=== PATIENT | male | born 1940 | race Caucasian/White ===

== ENCOUNTER 2017-11-23 13:30 | Outpatient (RCR) | payer MEDICARE, OTHER, SELFPAY ==
--- NOTE | 2017-11-07 17:40 | HP.PTEVAL_ITS ---
Patient's Visit Information JODIE SILVERIO is a 77 year old M referred to Physical Therapy by Chel Kaur DPM with a diagnosis of Plantar Fascitis. Date of Evaluation: 11/07/17 Physical Therapist: Veronica Bennett - Visit Plan Frequency: 2x /Week Duration: 3 Weeks Plan: Focus on ROM and flexibility of the LE - Subjective Subjective: Patient reports that his left heel has bothering him for a couple of weeks. Has seen Dr. Kaur- gave him exercises and then she sent him to therapy. Was walking on the TM for 15 minutes and about a week later the heel started bothering him. He changed shoes and was told to use the bike. But the pain never went away. No x-rays or MRI on the foot. Was walking in diabetic shoes- does not have orthotics. Feels that its not getting better. Is wearing a night splint for a few nights but doesn't get much rest so he isn't wearing it very often. Pain is located in the heel but does not radiate. Has neuropathy in both feet. Worst: 7/10 Agg: walking Eases: sleeping, sitting. Best: 0/10. Feels burning with sharp pains that don't last long. Pretty sedentary-likes to watch TV. Is not working out at the gym anymore. Sleep: not disturbed. PMHx: DM, open heart surgery x2 (quad, aorta), art valve, 3 bipasses, no orthopaedic. Meds: see list - Objective Posture: FH, RS, Increased kyphosis. Gait: mild deviation- wide DILLON- decreased heel/toe pattern bilaterally. SLS: unable but will weight shift- painful with shift but doesn't have a lot of feeling in his feet so he isn't sure how much it hurts. HR/TR: able with UE support. ROM: DF: neutral, PF: 40 degrees, Inv: 30 degrees, Ever: 10 degrees. Strength: 5/5 throughout. Special Test: windlass mechanism- negative. Palpation: tender along distal heel on medial border of the plantar fascia. Flex: Gastroc: severe, Solues: severe - Goals Goal 1:: Patient will be I with HEP and progression Goal Time Frame: 4-6 Weeks Goal 2:: Patient will demo 10 degrees of DF Goal Time Frame: 4-6 Weeks Goal 3:: Patient will report 0/10 pain for 1 week Goal Time Frame: 4-6 Weeks Goal Time Frame: 4-6 Weeks - Rehabilitation Potential Physical Therapy Diagnosis: Patient presents with hypomobility- he has decreased ROM, strength and flexibility leading to plantar fascitits Rehabilitation Potential: Fair - Anticipated Interventions Patient/Client Instruction: Educate patient on: Benefits of Fitness Program For the Purpose of:: To improve performance and independence with ADL's Therapeutic Exercise to Include: Strength training, Endurance training, Balance training, Agility training, Body mechanics, Postural training, Flexibilty training, Gait and locomotor training, Passive ROM, Active ROM For the Purpose of:: To improve muscle performance and motor function TENS: Yes Cryotherapy (ice pack, ice massage): Yes Thermo therapy (hot pack): Yes Ultrasound (thermal/non thermal): Yes For the Purpose of:: To decrease swelling/inflammation Thank you for the opportunity to evaluate your patient. For Medicare and Medicare HMO plans, please review the plan of care and approve it. It will need to be FAXED BACK to us at [phone] for Medicare purposes. Please let me know if there are questions or concerns regarding this plan of care. Physician Signature: Date:
--- NOTE | 2018-01-04 14:27 | HP.PT.NRP ---
HP - Discharge Summary (1) - Patient Information JODIE SILVERIO was seen in my office for initial evaluation on 11/07/17. The following Plan of Care was established for this patient: Initial Frequency: 2x /Week Initial Duration: 3 Weeks - Anticipated Interventions Patient/Client Instruction: Educate patient on: Benefits of Fitness Program For the Purpose of:: To improve performance and independence with ADL's Therapeutic Exercise to Include: Strength training, Endurance training, Balance training, Agility training, Body mechanics, Postural training, Flexibilty training, Gait and locomotor training, Passive ROM, Active ROM For the Purpose of:: To improve muscle performance and motor function TENS: Yes Cryotherapy (ice pack, ice massage): Yes Thermo therapy (hot pack): Yes Ultrasound (thermal/non thermal): Yes For the Purpose of:: To decrease swelling/inflammation This patient was last seen in our office . Pertinent comments regarding their Physical therapy will appear below: Patient has not attended PT in over 30 days and is appropriate to be d/c at this time and return to MD for further evaluation. At this point I will be discontinuing this patient from physical therapy. I would be happy to see this patient again in the future if found appropriate by the physician. Thank you! Veronica Bennett
== END 2017-11-23 19:00 | disposition home or self-care (01) ==
LOC: PT 13:30
PROVIDERS: Family Provider Family Medicine; PCP Family Medicine; Visit Provider Podiatrist
DX: M72.2 Plantar fascial fibromatosis (principal)
CPT/HCPCS: 97110; 97161; G8978; G8979

== ENCOUNTER 2018-01-10 15:26 | Emergency (ER) | payer MEDICARE, OTHER, SELFPAY ==
[2018-01-10 15:27] VITALS: BP 144/97; PULSE 82; RESP 16; TEMP 36.5; O2SAT 97; BMI 45.6
--- NOTE | 2018-01-10 15:46 | CT_ITS ---
STUDY: CT BRAIN WITHOUT CONTRAST REASON FOR EXAM: Male, 77 years old. 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 COMPARISON: 11.18.17. FINDINGS: Soft tissue swelling of the posterior midline scalp. There is no underlying fracture. Normal calvarium. There are calcifications around the carotid artery. These are noted in the cavernous carotid arteries. There is mild cerebral atrophy with widening of the extra-axial spaces and ventricular dilatation. There are areas of decreased attenuation within the white matter tracts of the supratentorial brain, consistent with microvascular disease changes. Normal thalami. Normal brainstem. There is mild cerebellar atrophy. Physiologic calcifications of the basal ganglia. There is no intracranial hemorrhage. There are no findings of an acute ischemic infarction. Normal visualized paranasal sinuses. CT/Brain/Head without Contrast IMPRESSION: Chronic involutional changes of the brain. Soft tissue swelling of the posterior midline scalp. There is no underlying fracture. Electronically Signed: Juan Marlow MD at 16:39 EST , Service support ,
--- NOTE | 2018-01-10 15:49 | ED.DCSUM_ITS ---
- ER Visit Summary Date of Service: 01/10/18 Chief Complaint: Fall with head injury History of Present Illness: The patient is a 77 M currently on Coumadin secondary to a prior aortic valve replacement. Patient fell on the ice today hitting the back of his head. He did not lose consciousness. He is a very mild headache. He denies vision changes, nausea, or vomiting. INR was last checked a week ago at [facility]. Physical Examination: Vital signs are unremarkable. Head neck examination with a small hematoma to the right posterior parietal scalp. No lacerations are noted. These are clear bilaterally. He has no C- spine tenderness on exam. Heart is regular rate and rhythm. Lung sounds are clear. Abdomen is soft nontender. Extremity examination reveals an abrasion to the extensor surface of the right elbow. There is no tenderness to palpation and he has full range of motion without difficulty. There is no tenderness noted to the lower extremities. Neuro exam is unremarkable. Test Results: INR is 2.9. CT scan of the head shows chronic involutional changes. There is soft tissue swelling of the posterior midline scalp. No fracture is noted. Emergency Department Course and Treatment: She declined pain medication while here. Test results were discussed with him and family at bedside. He will be discharged home at this time. Treatment Plan: [] Disposition: Discharge Impression: 1. Mechanical fall 2. Scalp hematoma 3. Coumadin coagulopathy This note was generated with [employer] dictation software. It may contain incorrect words, spelling, and punctuation that were not noted in review of the chart prior to signing ED Disposition - Plan for ED Patient: Disposition: Home or Assisted Living Chief Complaint: Fall Instructions: ED Mechanical Fall, ED Head Injury Closed Referrals: Romaine Velazquez MD [Primary Care Provider] - As Needed
[2018-01-10 16:37] LABS: International Normalized Ratio 2.9; Prothrombin Time (Protime)PT. 29.4 SECONDS (11.7-14.9)
--- NOTE | 2018-01-10 17:14 | ED.DEP ---
ED Disposition - Plan for ED Patient: Disposition: Home or Assisted Living Chief Complaint: Fall Instructions: ED Mechanical Fall, ED Head Injury Closed Referrals: Romaine Velazquez MD [Primary Care Provider] - As Needed
[2018-01-10 17:32] VITALS: BP 132/74; PULSE 67; RESP 18; O2SAT 93
== END 2018-01-10 17:33 | disposition home or self-care (01) ==
PROVIDERS: Emergency Provider Emergency Medicine; Family Provider Family Medicine; PCP Family Medicine
DX: S00.03XA Contusion of scalp, initial encounter (principal); W00.9XXA Unspecified fall due to ice and snow, initial encounter; Y93.9 Activity, unspecified; Y92.9 Unspecified place or not applicable; Z95.2 Presence of prosthetic heart valve; Z79.01 Long term (current) use of anticoagulants; E66.9 Obesity, unspecified; Z68.42 Body mass index [BMI] 45.0-49.9, adult; G40.909 Epilepsy, unspecified, not intractable, without status epilepticus; M10.9 Gout, unspecified; Z95.1 Presence of aortocoronary bypass graft; I25.10 Atherosclerotic heart disease of native coronary artery without angina pectoris; I13.0 Hypertensive heart and chronic kidney disease with heart failure and stage 1 through stage 4 chronic kidney disease, or unspecified chronic kidney disease; I50.9 Heart failure, unspecified; E11.22 Type 2 diabetes mellitus with diabetic chronic kidney disease; N18.9 Chronic kidney disease, unspecified; Z79.4 Long term (current) use of insulin; Z79.82 Long term (current) use of aspirin; Z79.899 Other long term (current) drug therapy
CPT/HCPCS: 70450; 85610; 99282

== ENCOUNTER → 2018-01-19 14:08 | Outpatient (CLI) | payer MEDICARE, OTHER, SELFPAY ==
[2018-01-19 15:56] LABS: Hemoglobin A1c 6.6 % (4.2-6.3)
[2018-01-19 16:01] LABS: ALB/GLOB Ratio 0.7 RATIO (0.9-2.4); AST(SGOT) 19 U/L (15-37); Alanine Aminotransfer ALT/SGPT 24 U/L (16-61); Albumin, Serum 3.1 g/dL (3.2-5.0); Alkaline Phosphatase 142 U/L (45-117); Anion Gap 8 (5-15); BUN 37 mg/dL (7-18); BUN/Creat Ratio 19.9 RATIO (10-20); Calcium,Total 8.3 mg/dL (8.5-10.1); Chloride 105 mmol/L (98-107); Cholesterol 116 mg/dL (200); Creatinine, Serum 1.86 mg/dL (0.70-1.30); EST Glomerular Filtration Rate 38 mL/min (>60); Est Glom Filt Rate - Afr Amer 46 mL/min (>60); Globulin 4.3 g/dL (2.2-4.2); Glucose 162 mg/dL (74-106); High Density Lipoprotein 30 mg/dL; Potassium 4.6 mmol/L (3.5-5.1); Protein, Total 7.4 g/dL (6.4-8.2); Sodium Level 138 mmol/L (136-145); Thyroid Stim Hormone (TSH) 3.33 uIU/mL (0.358-3.74); Triglycerides 221 mg/dL; Very Low Density Lipoprotein 44 mg/dL (5-40)
[2018-01-19 16:09] LABS: Hematocrit 33.5 % (40-54); Hemoglobin 10.7 g/dl (13.0-16.5); Mean Corp Hgb Conc 31.9 g/gl (32-36); Mean Corpuscular Hgb 30.4 pg (27.0-32.0); Mean Corpuscular Volume 95.2 fL (80-94); Mean Platelet Vol. 10.2 fl (6.2-12.0); Platelet Count 178 K/mm3 (150-450); RBC Distribution Width CV 14.4 % (11.6-14.6); RBC Distribution Width SD 49.4 fl (35.1-43.9); Red Blood Count 3.52 M/mm3 (4.6-6.2); White Blood Count 9.2 K/mm3 (4.4-11.0)
[2018-01-19 16:10] LABS: Scan Indicated on CBC? Y/N NO
[2018-01-19 16:20] LABS: Microalbumin:Creatinine Ratio 265.8 mg/g CRE (<30 mg/g CRE)
== END ==
PROVIDERS: Family Provider Family Medicine; PCP Family Medicine; Visit Provider Internal Medicine
DX: I25.10 Atherosclerotic heart disease of native coronary artery without angina pectoris (principal); I11.0 Hypertensive heart disease with heart failure; I50.9 Heart failure, unspecified; E11.65 Type 2 diabetes mellitus with hyperglycemia; E66.01 Morbid (severe) obesity due to excess calories; E78.2 Mixed hyperlipidemia
CPT/HCPCS: 36415; 80053; 80061; 82043; 82570; 83036; 84443; 85027

== ENCOUNTER 2018-02-04 04:17 | Inpatient (IN) | payer MEDICARE, OTHER, SELFPAY ==
[2018-02-04] VITALS (21 sets, daily range): BP systolic 132–152; BP diastolic 57–75; PULSE 62–106; RESP 16–36; TEMP 36.8–37.9; O2SAT 87–98; BMI 46.9; BMI 45.9; BMI 46.0
--- NOTE | 2018-02-04 04:29 | RAD_ITS ---
STUDY: X-RAY CHEST REASON FOR EXAM: Male, 77 years old. cough, SOB TECHNIQUE: Single AP portable view of the chest. COMPARISON: None. FINDINGS: The lungs are clear and expanded. There is no demonstrated pleural abnormality. Sternal cerclage wires and vascular clips are present from a prior sternotomy and coronary artery bypass graft procedure (CABG). Normal mediastinum and baudilio. Normal visualized pulmonary arteries. Normal visualized aortic arch and descending thoracic aorta. Normal visualized thoracic spine. There is degenerative osteoarthritis of the bilateral shoulders. There is no demonstrated abnormality of the visualized soft tissue structures of the upper abdomen. RAD/Chest 1 View (Portable) IMPRESSION: Degenerative changes, as described above. No demonstrated acute cardiopulmonary process. Electronically Signed: Bela Garcia MD at 5:48 EST Tel , Service support ,
--- NOTE | 2018-02-04 04:29 | EKG12_ITS ---
Test Reason : SOB Blood Pressure : / mmHG Vent. Rate : 100 BPM Atrial Rate : 079 BPM P-R Int : 000 ms QRS Dur : 136 ms QT Int : 392 ms P-R-T Axes : 000 -17 139 degrees QTc Int : 505 ms Sinus tachycardia with occasional Premature ventricular complexes Left bundle branch block Abnormal ECG Confirmed by DON BAIG, JEAN CLAUDE ([id number]), department editor LEX CARUSO ([id number] on 02/06/2018 3:00:08 PM Referred By: SHANNAN Confirmed By:JEAN CLAUDE OCHOA MD
--- NOTE | 2018-02-04 04:33 | ED.DCSUM_ITS ---
- ER Visit Summary Date of Service: 02/04/18 Chief Complaint: Dyspnea, cough History of Present Illness: The patient is a 77 M 1 week history of cough with sputum production. This evening worsening shortness of breath. No chest pains. Complains of chills. No fevers. No urinary symptoms. No nausea or vomiting. History of sleep apnea with CPAP at night. Denies history of COPD or asthma. Remote tobacco history. CHF history with no increased swelling. Previously on home oxygen due to CHF history. No further complaints. Physical Examination: General: Alert and oriented ?3, short sentences. HEENT: Normocephalic, atraumatic. Moist mucosa membranes Neck: supple, nontender. Cardiovascular: Regular tachycardic rate and rhythm, no murmurs Respiratory: Wheezing noted lower lobes with diminished sounds. Abdomen: Soft, nontender, nondistended Extremities: Nontender, mild lower extremity edema, pulses intact ?4 Neuro: no focal neurological deficits. Test Results:EKG: Sinus, left bundle branch block, Rate of 100. No ST or T- wave changes. CBC white count 7.9. Hemoglobin 0.6. Creatinine 1.84. INR 2.5. Sputum Gram stain and culture sent and pending. Blood culture ?2 pending. Lactic acid 1.4. Troponin pending. Chest x-ray: Concerns for left hilar infiltrate. Emergency Department Course and Treatment: Patient hypoxic on arrival, no home oxygen. Placed on oxygen with aerosol treatments. Pulse ox improved. Wheezing on examination. EKG notes a new left bundle branch block. He has no chest pain. Troponin is pending. Sepsis protocol due to tachycardia and tachypnea. X-ray reviewed by myself concerns for left hilar infiltrate compared to previous x-rays. Lactic acid 1.4. Currently on reevaluation some wheezing was improved. Creatinine lower than recent baseline. Currently hospitalist on page for discussion for admission for community acquired pneumonia, hypoxemia, new left bundle branch block. Discussed with Dr. De Leon, will place on Levaquin IV. Treatment Plan: [] Disposition: Admission Impression: 1. Community acquired pneumonia 2. New left bundle branch block 3. Hypoxemia 4. Chronic kidney disease This note was generated with [employer] software. It may contain incorrect words, spelling, and punctuation that were not noted in review of the chart prior to signing ED Disposition - Plan for ED Patient: Disposition: Acute Care Hospital [facility] Chief Complaint: Shortness of Breath Diagnosis: Community acquired pneumonia, Left bundle branch block, Hypoxemia, Chronic kidney disease Referrals: Romaine Velazquez MD [Primary Care Provider] -
[2018-02-04] MEDS: Ipratropium/Albuterol Sulfate 3 ML AMPUL.NEB INHALATION ×7 (04:43→22:29)
[2018-02-04 04:48] LABS: Absolute Neutrophil Count 5.7 X10^3/uL (2.0-7.7); Basophil# 0.04 X10^3/uL; Basophil% 0.5 % (0-1); Eosinophil# 0.26 X10^3/uL; Eosinophils% 3.3 % (0-5); Hematocrit 35.2 % (40-54); Hemoglobin 11.6 g/dl (13.0-16.5); Lymphocyte % 15.1 % (19-41); Mean Corpuscular Hgb 31.4 pg (27.0-32.0); Mean Corpuscular Volume 95.1 fL (80-94); Mean Platelet Vol. 9.9 fl (6.2-12.0); Monocyte% 8.8 % (0-10); Neutrophil # 5.72 X10^3/uL (2.7-7.7); Neutrophil % 72.2 % (47-70); Platelet Count 148 K/mm3 (150-450); RBC Distribution Width CV 14.4 % (11.6-14.6); RBC Distribution Width SD 47.3 fl (35.1-43.9); White Blood Count 7.9 K/mm3 (4.4-11.0)
[2018-02-04 04:50] LABS: POSITIVE COUNT NO; POSITIVE DIFFERENTIAL NO; POSITIVE MORPHOLOGY NO
[2018-02-04 04:54] LABS: International Normalized Ratio 2.5; Prothrombin Time (Protime)PT. 27.2 SECONDS (11.7-14.9)
[2018-02-04 04:55] LABS: Partial Thromboplast Time 50.3 Seconds (24.1-36.2)
[2018-02-04 05:03] LABS: ALB/GLOB Ratio 0.8 RATIO (0.9-2.4); AST(SGOT) 18 U/L (15-37); Alanine Aminotransfer ALT/SGPT 19 U/L (16-61); Albumin, Serum 3.3 g/dL (3.2-5.0); Alkaline Phosphatase 133 U/L (45-117); Anion Gap 8 (5-15); BUN 35 mg/dL (7-18); Calcium,Total 8.1 mg/dL (8.5-10.1); Chloride 104 mmol/L (98-107); Creatinine, Serum 1.84 mg/dL (0.70-1.30); EST Glomerular Filtration Rate 38 mL/min (>60); Est Glom Filt Rate - Afr Amer 46 mL/min (>60); Estimated Creatinine Clearance 29.71 ml/min; Globulin 4.4 g/dL (2.2-4.2); Glucose 126 mg/dL (74-106); Potassium 4.6 mmol/L (3.5-5.1); Protein, Total 7.7 g/dL (6.4-8.2); Sodium Level 138 mmol/L (136-145)
[2018-02-04 05:12] LABS: Lactic Acid 1.4 mmol/L (0.4-2.0)
--- NOTE | 2018-02-04 05:48 | PCM.HP.STD ---
Problem List (1) Chronic kidney disease Status: Acute (2) Community acquired pneumonia Status: Acute (3) Chronic renal failure, stage 3 (moderate) Status: Chronic (4) DM type 2 (diabetes mellitus, type 2) Status: Chronic (5) Morbid obesity with BMI of 45.0-49.9, adult Status: Chronic History of Present Illness Date of Admission: 02/04/18 Chief Complaint: CAP The patient is a 77 year old male w/ h/o CABG, CKD IV, HTN, DMII and AUTUMN admitted for CAP. He has been having increase SOB x 1 day. Nothing made it better or worse. His SOB is associated with productive cough. The intensity and frequency of his cough have increased in the past few hours. His SOB is constant and severe. SOB interfered with his ADLs. No fever but he c/o chill. He came to the ED hypoxic. Past Medical History Past Medical History (Chronic Problems): Chronic Problems Gout (Chronic) Sleep apnea (Chronic) Cholecystitis (Chronic) Seizure (Chronic) Hypomagnesemia (Chronic) DM type 2 (diabetes mellitus, type 2) (Chronic) Venous insufficiency of both lower extremities (Chronic) Hyperlipemia (Chronic) Aortic valve replaced (Chronic) January 2016 at [facility], pig valve Chronic renal failure, stage 3 (moderate) (Chronic) Morbid obesity with BMI of 45.0-49.9, adult (Chronic) Anemia (Chronic) CAD (coronary artery disease) (Chronic) Hx of CABG (Chronic) CABG in 1993 and then again in January of 2016 at [facility] along with an AVR HTN (hypertension) (Chronic) Allergies Penicillins [PCN] Allergy (Verified 02/04/18 04:22) Swelling Home Medications: Ambulatory Orders Medication Instructions Recorded Aspirin [Adult Low Dose Aspirin EC] 81 mg PO DAILY 07/11/16 Atorvastatin Calcium [Lipitor] 40 mg PO QHS 07/11/16 Furosemide 80 mg PO DAILY 07/11/16 Metoprolol Tartrate [Lopressor 12.5 mg PO BID 07/11/16 (beta josey)] Multivitamin [Daily Multiple 1 each PO DAILY 07/11/16 Vitamin] Pantoprazole Sodium [Protonix] 20 mg PO DAILY 07/11/16 Potassium Chloride [Klor-Con] 20 meq PO DAILY 07/11/16 Insulin Regular, Human [Novolin R] 25 unit SC BID 07/24/16 Insulin NPH Human Isophane 25 units SQ DAILY 08/10/16 [Novolin N] Allopurinol [Zyloprim] 150 mg PO DAILYCM #15 tablet 08/27/16 Levetiracetam [Keppra] 500 mg PO BID #60 tablet 08/27/16 Warfarin [Coumadin ([facility])] 2.5 mg PO DAILY 10/06/16 Cholecalciferol (VIT D3) [Vitamin 1,000 unit PO DAILY 10/26/16 D] Isosorbide Mononitrate [Isosorbide 60 mg PO DAILY 01/10/18 Mononitrate ER] Sertraline HCl [Zoloft] 25 mg PO DAILY 01/10/18 Iron Polysaccharide Complex 150 mg PO QODAY 02/04/18 [Ferrex 150] Surgical History: cataract, coronary bypass surgery - x 3, - - Aortic valve replacement, bilateral carpal tunnel release, PICC line. Lives: Spouse/ Significant Other, With Family Smoking Status: Former smoker - *Family History Maternal History Items: Stroke - mother at age 60 from stroke Sibling History Items: Seizures - recently diagnosed Review of Systems Constitutional: Denies: Chills, Fever, Weight Change HEENT: Denies: Head Aches, Sinus Congestion, Sinus Drainage Cardiovascular: Denies: Chest Pain, Palpitations Respiratory: Reports: Cough, Shortness of breath at rest. Denies: Sputum production Gastrointestinal: Denies: Abdominal Pain, Nausea, Vomiting Genitourinary: Denies: Dysuria Musculoskeletal: Denies: Joint Pain, Joint Tenderness Skin: Denies: Rash, Wounds Neurological: Denies: Numbness, Tingling, Focal weakness Psychiatric: Denies: Anxiety, Depression, Homicidal Ideations, Suicidal Ideations Hematologic/ Lymphatic: Denies: Easy Bruising, Easy Bleeding VTE Information - Inpt Only VTE Present on Admission: No VTE Mechan Device Prophylaxis: SCD's VTE Pharm Prophylaxis ordered?: Yes Patient Problems: Active and Suspected Problems Community acquired pneumonia (Acute) Left bundle branch block (Acute) Hypoxemia (Acute) Chronic kidney disease (Acute) - Physical Exam General: Alert, Oriented x3, Cooperative HEENT: Atraumatic, PERRLA, EOMI, Normocephalic Neck: Supple, No JVD, Negative Carotid Bruits Lungs: Diminished, Short of Breath, - - Crackle at left lobe Cardiovascular: Regular rate, No murmurs Abdomen: Bowel Sounds Present, Soft, Non Tender Extremities: No edema, Capillary Refill Less than 3 Seconds Skin: No rashes, No breakdown Musculoskeletal: No Tenderness to Palpation of Joints or Extremities Neurological: Cranial nerves II-XII grossly intact Psych/Mental Status: Normal Affect, Appropriate Vital Signs Temp Pulse Resp BP Pulse Ox 98.7 F 97 22 H 144/75 H 97 02/04/18 05:26 02/04/18 05:30 02/04/18 05:30 02/04/18 05:30 02/04/18 05:30 Oxygen Flow Rate (L/min) 2 Oxygen Delivery Method Nasal Cannula Weight: 127.9 kg Body Mass Index (BMI) 46.9 Finger Stick Blood Glucose 227 Laboratory Tests Past 24 Hrs 02/04/18 02/04/18 02/04/18 04:35 04:35 04:35 WBC 7.9 RBC 3.70 L Hgb 11.6 L Hct 35.2 L MCV 95.1 H MCH 31.4 MCHC 33.0 RDW 14.4 RDW Differential 47.3 H Plt Count 148 L MPV 9.9 Immature Gran % (Auto) 0.100 Neut % (Auto) 72.2 H Lymph % (Auto) 15.1 L [place] % (Auto) 8.8 Eos % (Auto) 3.3 Baso % (Auto) 0.5 Absolute Neuts (auto) 5.7 Absolute Lymphs (auto) 1.20 Total Counted Not Reportable PT 27.2 H INR 2.5 APTT 50.3 H Sodium 138 Potassium 4.6 Chloride 104 Carbon Dioxide 26.0 Anion Gap 8 BUN 35 H Creatinine 1.84 H Estim Creat Clear Calc 29.71 Est GFR (MDRD) Af Amer 46 L Est GFR (MDRD) Non-Af 38 L BUN/Creatinine Ratio 19.0 Glucose 126 H Lactic Acid Calcium 8.1 L Total Bilirubin 0.50 AST 18 ALT 19 Alkaline Phosphatase 133 H Troponin I Total Protein 7.7 Albumin 3.3 Globulin 4.4 H Albumin/Globulin Ratio 0.8 L 02/04/18 02/04/18 04:35 04:35 WBC RBC Hgb Hct MCV MCH MCHC RDW RDW Differential Plt Count MPV Immature Gran % (Auto) Neut % (Auto) Lymph % (Auto) [place] % (Auto) Eos % (Auto) Baso % (Auto) Absolute Neuts (auto) Absolute Lymphs (auto) Total Counted PT INR APTT Sodium Potassium Chloride Carbon Dioxide Anion Gap BUN Creatinine Estim Creat Clear Calc Est GFR (MDRD) Af Amer Est GFR (MDRD) Non-Af BUN/Creatinine Ratio Glucose Lactic Acid 1.4 Calcium Total Bilirubin AST ALT Alkaline Phosphatase Troponin I < 0.02 Total Protein Albumin Globulin Albumin/Globulin Ratio Assessment/Plan Active and Suspected Problems Community acquired pneumonia (Acute) Left bundle branch block (Acute) Hypoxemia (Acute) Chronic kidney disease (Acute) 77 year old male w/ h/o CABG, CKD IV, HTN, DMII and AUTUMN admitted for CAP. 1) CAP: Chest xray disclosed possible left lower lobe infiltrate. Will start levaquin. Cultures pending. 2) Acute respiratory failure: C/w oxygen. Trops negative. Will get serial trop. EKG disclosed left bundle branch block. H/o CABG. C/w meds. Supportive care. 3) CKD IV: Cr at baseline. C/w routine CKD care. Monitor. 4) Prophylaxis: SCD / coumadin.
[2018-02-04 07:18] LABS: Color, Urine Yellow (Yellow); Glucose, Dipstick Normal (Normal); Ketone-Dipstick Negative (Negative); Leukocyte Esterase-Dipstick 500 /ul (Negative); Nitrite-Dipstick Negative (Negative); Occult Blood-Urine 50 /ul (Negative); Protein-Dipstick 100 mg/dl (Negative); Specific Gravity, Urine 1.015 (1.002-1.030); Urine Bilirubin Dipstick Negative (Negative); Urine Clarity Clear (Clear); Urine Urobilinogen Normal (Normal)
[2018-02-04] MEDS: Multivitamins,Therapeutic Tablet 1 TABLET PO (07:53)
[2018-02-04] MEDS: Aspirin E.C. 81 MG Tablet PO (07:53)
[2018-02-04] MEDS: Allopurinol 300 MG Tablet 150 MG PO (07:54)
[2018-02-04] MEDS: Metoprolol Tartrate 25 MG Tablet 12.5 MG PO ×2 (07:55→21:55)
[2018-02-04] MEDS: levETIRAcetam 500 MG Tablet PO ×2 (07:55→21:54)
[2018-02-04] MEDS: Isosorbide Mononitrate 60 MG Tablet PO (07:55)
[2018-02-04] MEDS: Iron Polysaccharide Complex 150 MG CAPSULE PO (07:55)
[2018-02-04] MEDS: guaiFENesin 1,200 MG Tablet 1200 MG PO ×2 (07:56→21:55)
[2018-02-04] MEDS: Pantoprazole Sodium 20 MG Tablet PO (07:56)
[2018-02-04] MEDS: Sertraline 50 MG Tablet 25 MG PO (07:57)
[2018-02-04 08:10] LABS: Bedside Glucose 146 mg/dL (70-110)
[2018-02-04] MEDS: 0.9% NaCl Peripheral Flush Adult/Peds IV ×2 (10:34→21:59)
[2018-02-04] MEDS: Furosemide 40 MG/4 ML Vial IV ×2 (10:34→16:58)
--- NOTE | 2018-02-04 14:31 | PCM.HOSP.N ---
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 H&P, vitals, labs and plan of management reviewed. Essentially patient was admitted With 1 day of progressive worsening shortness of breath with history of chronic shortness of breath, dyspnea on mild exertion and physical deconditioning. Seen and examined Lungs: Air entry severely diminished. Bilateral rhonchi and wheezing present. Heart S1-S2 regular. Systolic murmur present over mitral area and left lower sternal border. Bilateral lower extremity edema Patient is on IV antibiotic Levaquin for left lower lobe community acquired pneumonia. Patient has CKD stage IV. Patient has history of coronary artery disease with ischemic cardiomyopathy. He had 2 times bypass surgery first 1 in 1995, quadruple bypass and then second in December 2015 with 3 vessel bypass and static, porcine aortic valve replacement. IV fluid is stopped. Chest x-ray ordered for tomorrow. Started on Lasix 40 mg IV every 12 hourly. Nephrology is consulted. 2D echo ordered. Strict intake and output. Follow-up electrolytes, kidney function and fluid status. Microbiology Past 72 Hours 02/04/18 05:00 Sputum, Expectorated/Coughed Gram Stain - Final 02/04/18 07:45 Mucosa - Nose Influenza Types A,B Direct FA (AYUSH) - Final 02/04/18 07:00 Urine, Clean Catch Streptococcus pneumoniae Antigen (M - Final 02/04/18 07:00 Urine, Clean Catch Legionella Antigen - Final Laboratory Results 02/04/18 04:35: WBC 7.9, RBC 3.70 L, Hgb 11.6 L, Hct 35.2 L, MCV 95.1 H, MCH 31.4, MCHC 33.0, RDW 14.4, RDW Differential 47.3 H, Plt Count 148 L, MPV 9.9, Immature Gran % (Auto) 0.100, Neut % (Auto) 72.2 H, Lymph % (Auto) 15.1 L, [place] % (Auto) 8.8, Eos % (Auto) 3.3, Baso % (Auto) 0.5, Absolute Neuts (auto) 5.7, Absolute Lymphs (auto) 1.20, Total Counted Not Reportable 02/04/18 04:35: PT 27.2 H, INR 2.5, APTT 50.3 H 02/04/18 04:35: Sodium 138, Potassium 4.6, Chloride 104, Carbon Dioxide 26.0, Anion Gap 8, BUN 35 H, Creatinine 1.84 H, Estim Creat Clear Calc 29.71, Est GFR (MDRD) Af Amer 46 L, Est GFR (MDRD) Non-Af 38 L, BUN/Creatinine Ratio 19.0, Glucose 126 H, Calcium 8.1 L, Total Bilirubin 0.50, AST 18, ALT 19, Alkaline Phosphatase 133 H, Total Protein 7.7, Albumin 3.3, Globulin 4.4 H, Albumin/Globulin Ratio 0.8 L 02/04/18 04:35: Lactic Acid 1.4 02/04/18 04:35: Troponin I < 0.02 02/04/18 07:00: Urine Color Yellow, Urine Clarity Clear, Urine pH 5.0, Ur Specific [place] 1.015, Urine Protein 100 H, Urine Glucose (UA) Normal, Urine Ketones Negative, Urine Occult Blood 50 H, Urine Nitrite Negative, Urine Bilirubin Negative, Urine Urobilinogen Normal, Ur Leukocyte Esterase 500 H 02/04/18 07:48: POC Glucose 146 H Clinical Impression(s) from Imaging Studies Chest X-Ray 02/04/18 04:29 IMPRESSION: Degenerative changes, as described above. No demonstrated acute cardiopulmonary process. Electronically Signed: Bela Garcia MD at 5:48 EST Tel , Service support ,
--- NOTE | 2018-02-04 14:36 | ECHOD_ITS ---
Reason For Study: CHF Procedure This was a 2D Doppler, Color Flow transthoracic echocardiogram. Exam performed portable in patient room. Left Ventricle Normal LV size. Moderate concentric left ventricular hypertrophy. Left ventricular systolic function is normal. The estimated ejection fraction is 60 %. No regional wall motion abnormalities noted. Mitral Valve There is moderate mitral annular calcification. Tricuspid Valve Normal tricuspid valve. Mild (1+) tricuspid valve insufficiency. Pulmonary artery systolic pressure is 34 mmHg. Aortic Valve Peak aortic valve gradient 15 mmHg. Mean aortic valve gradient 9 mmHg. Stable appearing bioprosthetic aortic valve apparatus. Pulmonic Valve The pulmonic valve is not well visualized. Great Vessels Normal aortic root. Pericardium/Pleural No pericardial effusion. Medication Definity0.4ml given slow IV push to enhance endocardial definition. MMode/2D Measurements & Calculations LVIDd: 4.1 cm IVSd: 1.3 cm LVOT diam: 2.1 cm LVIDs: 3.2 cm LVPWd: 1.6 cm LVOT area: 3.4 cm2 FS: 23.5 % Ao root diam: 2.9 cm LA dimension: 5.7 cm Doppler Measurements & Calculations Lat Peak E' Lev: 9.8 cm/sec Med Peak E' Lev: 4.8 cm/sec MV V2 max: 186.6 cm/sec MV max P.9 mmHg MV V2 mean: 126.8 cm/sec MV mean P.5 mmHg MV V2 VTI: 35.1 cm MVA(VTI): 2.5 cm2 Ao V2 max: 195.0 cm/sec LV V1 max: 130.0 cm/sec SV(LVOT): 89.4 ml Ao max P.2 mmHg LV V1 max P.8 mmHg Ao V2 mean: 142.1 cm/sec LV V1 mean P.1 mmHg Ao mean P.8 mmHg LV V1 mean: 96.7 cm/sec Ao V2 VTI: 36.0 cm LV V1 VTI: 26.6 cm MICHAEL(I,D): 2.5 cm2 MICHAEL(V,D): 2.2 cm2 PA V2 max: 168.0 cm/sec TR max lev: 272.3 cm/sec TR max P.7 mmHg Interpretation Summary Normal LV size. Moderate concentric left ventricular hypertrophy. Left ventricular systolic function is normal. The estimated ejection fraction is 60 %. Stable appearing bioprosthetic aortic valve apparatus. Mean aortic valve gradient 9 mmHg. Ordering Physician: Rigoberto Ashley Referring Physician: Toñito Espino Performed By: Jenni Brown RDCS
--- NOTE | 2018-02-04 14:37 | CCHN_ITS ---
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 H&P, vitals, labs and plan of management reviewed. Essentially patient was admitted With 1 day of progressive worsening shortness of breath with history of chronic shortness of breath, dyspnea on mild exertion and physical deconditioning. Seen and examined Lungs: Air entry severely diminished. Bilateral rhonchi and wheezing present. Heart S1-S2 regular. Systolic murmur present over mitral area and left lower sternal border. Bilateral lower extremity edema Patient is on IV antibiotic Levaquin for left lower lobe community acquired pneumonia. Patient has CKD stage IV. Patient has history of coronary artery disease with ischemic cardiomyopathy. He had 2 times bypass surgery first 1 in 1995, quadruple bypass and then second in December 2015 with 3 vessel bypass and static, porcine aortic valve replacement. IV fluid is stopped. Chest x-ray ordered for tomorrow. Started on Lasix 40 mg IV every 12 hourly. Nephrology is consulted. 2D echo ordered. Strict intake and output. Follow-up electrolytes, kidney function and fluid status. Microbiology Past 72 Hours 02/04/18 05:00 Sputum, Expectorated/Coughed Gram Stain - Final 02/04/18 07:45 Mucosa - Nose Influenza Types A,B Direct FA (AYUSH) - Final 02/04/18 07:00 Urine, Clean Catch Streptococcus pneumoniae Antigen (M - Final 02/04/18 07:00 Urine, Clean Catch Legionella Antigen - Final Laboratory Results 02/04/18 04:35: WBC 7.9, RBC 3.70 L, Hgb 11.6 L, Hct 35.2 L, MCV 95.1 H, MCH 31.4, MCHC 33.0, RDW 14.4, RDW Differential 47.3 H, Plt Count 148 L, MPV 9.9, Immature Gran % (Auto) 0.100, Neut % (Auto) 72.2 H, Lymph % (Auto) 15.1 L, [place] % (Auto) 8.8, Eos % (Auto) 3.3, Baso % (Auto) 0.5, Absolute Neuts (auto) 5.7, Absolute Lymphs (auto) 1.20, Total Counted Not Reportable 02/04/18 04:35: PT 27.2 H, INR 2.5, APTT 50.3 H 02/04/18 04:35: Sodium 138, Potassium 4.6, Chloride 104, Carbon Dioxide 26.0, Anion Gap 8, BUN 35 H, Creatinine 1.84 H, Estim Creat Clear Calc 29.71, Est GFR (MDRD) Af Amer 46 L, Est GFR (MDRD) Non-Af 38 L, BUN/Creatinine Ratio 19.0, Glucose 126 H, Calcium 8.1 L, Total Bilirubin 0.50, AST 18, ALT 19, Alkaline Phosphatase 133 H, Total Protein 7.7, Albumin 3.3, Globulin 4.4 H, Albumin/ Globulin Ratio 0.8 L 02/04/18 04:35: Lactic Acid 1.4 02/04/18 04:35: Troponin I < 0.02 02/04/18 07:00: Urine Color Yellow, Urine Clarity Clear, Urine pH 5.0, Ur Specific [place] 1.015, Urine Protein 100 H, Urine Glucose (UA) Normal, Urine Ketones Negative, Urine Occult Blood 50 H, Urine Nitrite Negative, Urine Bilirubin Negative, Urine Urobilinogen Normal, Ur Leukocyte Esterase 500 H 02/04/18 07:48: POC Glucose 146 H Clinical Impression(s) from Imaging Studies Chest X-Ray 02/04/18 04:29 IMPRESSION: Degenerative changes, as described above. No demonstrated acute cardiopulmonary process. Electronically Signed: Bela Garcia MD at 5:48 EST Tel , Service support ,
[2018-02-04 16:26] LABS: Bedside Glucose 196 mg/dL (70-110)
[2018-02-04] MEDS: BENZOCAINE/MENTHOL 1 LOZENGE MUCOUS MEM (21:53)
[2018-02-04] MEDS: Acetaminophen 325 MG Tablet 650 MG PO (21:53)
[2018-02-04] MEDS: Atorvastatin Calcium 40 MG Tablet PO (21:54)
[2018-02-05] VITALS (27 sets, daily range): BP systolic 103–147; BP diastolic 56–81; PULSE 80–115; RESP 16–24; TEMP 36.6–37.5; O2SAT 87–98
[2018-02-05 00:11] LABS: Bedside Glucose 101 mg/dL (70-110)
[2018-02-05] MEDS: BENZOCAINE/MENTHOL 1 LOZENGE MUCOUS MEM ×4 (01:11→20:00)
[2018-02-05] MEDS: Acetaminophen 325 MG Tablet 650 MG PO (01:58)
[2018-02-05] MEDS: Ipratropium/Albuterol Sulfate 3 ML AMPUL.NEB INHALATION ×6 (03:59→23:02)
[2018-02-05 05:48] LABS: Absolute Lymphocyte Count 1.47 X10^3/ul (0.83-4.51); Absolute Neutrophil Count 4.4 X10^3/uL (2.0-7.7); Basophil# 0.01 X10^3/uL; Basophil% 0.1 % (0-1); Eosinophil# 0.03 X10^3/uL; Eosinophils% 0.4 % (0-5); Hematocrit 33.3 % (40-54); Hemoglobin 10.8 g/dl (13.0-16.5); Lymphocyte # 1.47 X10^3/ul (4.0); Lymphocyte % 21.9 % (19-41); Mean Corp Hgb Conc 32.4 g/gl (32-36); Mean Corpuscular Hgb 30.8 pg (27.0-32.0); Mean Corpuscular Volume 94.9 fL (80-94); Mean Platelet Vol. 9.9 fl (6.2-12.0); Monocyte# 0.75 X10^3/uL; Monocyte% 11.2 % (0-10); Neutrophil # 4.43 X10^3/uL (2.7-7.7); Neutrophil % 66.3 % (47-70); Platelet Count 133 K/mm3 (150-450); RBC Distribution Width CV 14.5 % (11.6-14.6); RBC Distribution Width SD 48.1 fl (35.1-43.9); Red Blood Count 3.51 M/mm3 (4.6-6.2); White Blood Count 6.7 K/mm3 (4.4-11.0)
--- NOTE | 2018-02-05 05:55 | RAD_ITS ---
STUDY: X-RAY CHEST REASON FOR EXAM: Male, 77 years old. Dyspnea TECHNIQUE: Single AP portable view of the chest. COMPARISON: February 04, 2018 FINDINGS: The lungs are clear and expanded. There is no demonstrated pleural abnormality. Sternal cerclage wires and vascular clips are present from a prior sternotomy and coronary artery bypass graft procedure (CABG). Normal mediastinum and baudilio. Normal visualized pulmonary arteries. Normal visualized aortic arch and descending thoracic aorta. Normal visualized thoracic spine. There is degenerative osteoarthritis of the bilateral shoulders. There is no demonstrated abnormality of the visualized soft tissue structures of the upper abdomen. RAD/Chest 1 View (Portable) IMPRESSION: Degenerative changes, as described above. No demonstrated acute cardiopulmonary process. Electronically Signed: Bela Garcia MD at 6:28 EDT Tel , Service support ,
[2018-02-05 06:07] LABS: Anion Gap 11 (5-15); BUN 44 mg/dL (7-18); BUN/Creat Ratio 19.6 RATIO (10-20); Calcium,Total 8.5 mg/dL (8.5-10.1); Chloride 103 mmol/L (98-107); Creatinine, Serum 2.24 mg/dL (0.70-1.30); EST Glomerular Filtration Rate 30 mL/min (>60); Est Glom Filt Rate - Afr Amer 37 mL/min (>60); Glucose 153 mg/dL (74-106); Magnesium 1.4 mg/dL (1.6-2.6); POSITIVE COUNT NO; POSITIVE DIFFERENTIAL NO; POSITIVE MORPHOLOGY NO; Potassium 4.1 mmol/L (3.5-5.1); Sodium Level 136 mmol/L (136-145)
[2018-02-05 07:05] LABS: Bedside Glucose 153 mg/dL (70-110)
[2018-02-05] MEDS: Aspirin E.C. 81 MG Tablet PO (08:17)
[2018-02-05] MEDS: Allopurinol 300 MG Tablet 150 MG PO (08:18)
[2018-02-05] MEDS: Multivitamins,Therapeutic Tablet 1 TABLET PO (08:19)
[2018-02-05] MEDS: Insulin NPH Human 100 UNITS/ML PEN 25 UNITS SC (08:22)
--- NOTE | 2018-02-05 09:11 | PCM.CONS.R ---
Problem List (1) Chronic kidney disease Status: Acute Consultation - Renal 02/05/18 PCP/ Referring MD: Requesting physician: Rigoberto Ashley MD Primary care physician: Romaine Velazquez MD Reason for Consultation:: Acute kidney injury on chronic kidney disease - History of Present Illness History of Present Illness: The patient is a 77 year old M past history significant for 2 diabetes mellitus, hypertension, coronary artery disease post CABG x 2 (most recently in 2016), hyperlipidemia, sleep apnea, gout, and aortic valve disease status post aortic valve replacement in 2016. 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 He is followed as an outpatient by Dr. Haroon Han, at their [place] office. She presented with cough ?1 week. The patient's cough is associated with sputum production and dyspnea. Symptoms worsened over the past week to the point where was unable to stay home. Patient was admitted and diagnosed with community-acquired pneumonia 2 days ago. We are asked to see the patient because of rising creatinine over the past 24 hours. She has baseline creatinine level of 1.9-2.1/dL. She does complain of intermittent nausea although there has been no vomiting prior to admission. There has been no diarrhea. The patient denies chest pain, edema or orthopnea. He not nauseated currently. Patient had not been on NSAIDs at home. Denies recent exposure to IV contrast. - Allergies Allergies: Allergies Penicillins [PCN] Allergy (Verified 02/04/18 04:22) Swelling - Current Medications Current Medications: Current Medications Acetaminophen (Tylenol) 650 mg PO Q4H PRN PRN PRN Reason: FEVER Last Admin: 02/05/18 01:58 Dose: 650 mg Albuterol/Ipratropium (Duoneb) 3 ml INHALATION Q4H.RT [facility] Last Admin: 02/05/18 07:52 Dose: 3 ml Allopurinol (Zyloprim) 150 mg PO DAILYCM [facility] Last Admin: 02/05/18 08:18 Dose: 150 mg Aspirin (Ecotrin) 81 mg PO DAILYCM [facility] Last Admin: 02/05/18 08:17 Dose: 81 mg Atorvastatin Calcium (Lipitor) 40 mg PO QHS [facility] Last Admin: 02/04/18 21:54 Dose: 40 mg Cholecalciferol (Vitamin D) 1,000 unit PO DAILY [facility] Last Admin: 02/04/18 07:57 Dose: 1,000 unit Furosemide (Lasix) 40 mg IV BID@1000,1800 [facility] Last Admin: 02/04/18 16:58 Dose: 40 mg Guaifenesin (Mucinex) 1,200 mg PO BID [facility] Last Admin: 02/04/18 21:55 Dose: 1,200 mg Levofloxacin (Levaquin) 250 mg in 50 mls @ 50 mls/hr IV Q24 [facility] Insulin Aspart (Novolog [facility] ([facility] Last Admin: 02/05/18 08:21 Dose: 25 u Insulin Human NPH (Humulin N ([facility])) [facility] Last Admin: 02/05/18 08:22 Dose: 25 u Isosorbide Mononitrate (Imdur) 60 mg PO DAILY [facility] Last Admin: 02/04/18 07:55 Dose: 60 mg Levetiracetam (Keppra) 500 mg PO BID [facility] Last Admin: 02/04/18 21:54 Dose: 500 mg Metoprolol Tartrate (Lopressor (Beta Karyn)) 12.5 mg PO BID [facility] Last Admin: 02/04/18 21:55 Dose: 12.5 mg Multivitamins (Multivitamin) [facility] Last Admin: 02/05/18 08:19 Dose: 1 tablet Pantoprazole Sodium (Protonix) 20 mg PO DAILY [facility] Last Admin: 02/04/18 07:56 Dose: 20 mg Polysaccharide Iron Complex (Ferrex 150) 150 mg PO QODAY [facility] Last Admin: 02/04/18 07:55 Dose: 150 mg Potassium Chloride (K-Dur) [facility] meq [facility] Last Admin: 02/05/18 08:19 Dose: 20 meq Sertraline HCl (Zoloft) 25 mg PO DAILY [facility] Last Admin: 02/04/18 07:57 Dose: 25 mg Sodium Chloride () 5 - 30 ml IV UD PRN PRN Reason: SALINE FLUSH Last Admin: 02/04/18 21:59 Dose: 10 ml Throat Lozenges (Cepacol Sore Throat Lozenge) 1 lozenge MUCOUS MEM Q2H PRN PRN PRN Reason: cough, sore throat Last Admin: 02/05/18 01:11 Dose: 1 lozenge Warfarin Sodium (Coumadin (Pbkc)) 2.5 mg PO DAILY@1700 AYLIN Last Admin: 02/04/18 16:58 Dose: 2.5 mg - Past Medical History Past Medical History (Chronic Problems): Chronic Problems Gout (Chronic) Sleep apnea (Chronic) Cholecystitis (Chronic) Seizure (Chronic) Hypomagnesemia (Chronic) DM type 2 (diabetes mellitus, type 2) (Chronic) Venous insufficiency of both lower extremities (Chronic) Hyperlipemia (Chronic) Aortic valve replaced (Chronic) January 2016 at [facility], pig valve Chronic renal failure, stage 3 (moderate) (Chronic) Morbid obesity with BMI of 45.0-49.9, adult (Chronic) Anemia (Chronic) CAD (coronary artery disease) (Chronic) Hx of CABG (Chronic) CABG in 1993 and then again in January of 2016 at [facility] along with an AVR HTN (hypertension) (Chronic) - Past Surgical History Surgical History: cataract, coronary bypass surgery - x 3, - - Aortic valve replacement, bilateral carpal tunnel release, PICC line. - Social History Smoking Status: Former smoker - Family History Maternal History Items: Stroke - mother at age 60 from stroke Sibling History Items: Seizures - recently diagnosed Review of Systems Constitutional: Reports: Chills, Malaise, Weakness. Denies: Anorexia, Fever, Night Sweats Eyes: Denies: Blurred vision, Vision Change HEENT: Denies: Head Aches, Sinus Congestion, Sinus Drainage Cardiovascular: Denies: Chest Pain, Edema, Orthopnea, Palpitations Respiratory: Reports: Cough, Shortness of breath at rest, Wheezing Gastrointestinal: Reports: Nausea. Denies: Abdominal Pain, Diarrhea, Vomiting Genitourinary: Denies: Dysuria Musculoskeletal: Denies: Joint Pain, Joint Tenderness Skin: Denies: Rash, Wounds Neurological: Denies: Numbness, Tingling, Focal weakness Hematologic/ Lymphatic: Denies: Easy Bruising, Easy Bleeding Patient Problems: Active and Suspected Problems Community acquired pneumonia (Acute) Left bundle branch block (Acute) Hypoxemia (Acute) Chronic kidney disease (Acute) - Physical Exam General: Alert, Oriented x3 HEENT: Atraumatic, Normocephalic Oral: Dry Mucosa Neck: Supple Lungs: Wheezes - bilateral wheeze without crackle. Cardiovascular: Normal S1, Normal S2, No murmurs, Tachycardic Abdomen: Bowel Sounds Present, Soft, Non Tender, Obese Extremities: No clubbing, No cyanosis, No edema Skin: No rashes Musculoskeletal: No Tenderness to Palpation of Joints or Extremities Lymphatic: No Cervical, Supraclavicular, or Inguinal Adenopathy Neurological: Cranial nerves II-XII grossly intact Vital Signs Temp Pulse Resp BP Pulse Ox 98 F 100 24 H 116/56 L 96 02/05/18 08:32 02/05/18 08:32 02/05/18 08:32 02/05/18 08:32 02/05/18 08:32 Oxygen Flow Rate (L/min) 2 Oxygen Delivery Method Nasal Cannula Weight: 125.3 kg Body Mass Index (BMI) 45.9 Intake and Output for Last 24 Hours 02/03/18 02/04/18 02/06/18 23:59 23:59 00:59 Intake Total 600 / 600 60 / 60 Output Total 625 / 625 200 / 200 Balance -25 / -25 -140 / -140 Microbiology Past 72 Hours 02/04/18 07:45 Influenza Types A,B Direct FA (AYUSH) - Final Mucosa - Nose 02/04/18 07:00 Streptococcus pneumoniae Antigen (M - Final Urine, Clean Catch 02/04/18 07:00 Legionella Antigen - Final Urine, Clean Catch Laboratory Tests Past 24 Hrs 02/05/18 02/05/18 05:28 05:28 WBC 6.7 RBC 3.51 L Hgb 10.8 L Hct 33.3 L MCV 94.9 H MCH 30.8 MCHC 32.4 RDW 14.5 RDW Differential 48.1 H Plt Count 133 L MPV 9.9 Immature Gran % (Auto) 0.100 Neut % (Auto) 66.3 Lymph % (Auto) 21.9 [place] % (Auto) 11.2 H Eos % (Auto) 0.4 Baso % (Auto) 0.1 Absolute Neuts (auto) 4.4 Absolute Lymphs (auto) 1.47 Total Counted Not Reportable Sodium 136 Potassium 4.1 Chloride 103 Carbon Dioxide 22.0 Anion Gap 11 BUN 44 H Creatinine 2.24 H Estim Creat Clear Calc 24.40 Est GFR (MDRD) Af Amer 37 L Est GFR (MDRD) Non-Af 30 L BUN/Creatinine Ratio 19.6 Glucose 153 H Calcium 8.5 Magnesium 1.4 L POC Glucose 03/10/1502/04/18 02/04/18 06:48 21:52 16:19 POC Glucose 153 H 101 196 H Assessment/Plan Active and Suspected Problems Community acquired pneumonia (Acute) Left bundle branch block (Acute) Hypoxemia (Acute) Chronic kidney disease (Acute) 1. Acute kidney injury on chronic kidney disease stage 3b-4. CKD is likely due to diabetic nephropathy. DARRYL may be due to diuresis in the setting of active infection (CAP). Will stop Lasix for now since there is no evidence of volume overload. Will also stop KCl while pt is off Lasix. Will check FEurea. Recheck renal panel in am. Monitor volume status. 2. Hypomagnesemia. Likely due to diuresis. Will give MagOx x 1. Recheck Mg in am. 3. T2DM. Glycemic control per hospital medicine service. 4. CAP. On Levaquin. Dose is OK for the current CrCl.
--- NOTE | 2018-02-05 09:27 | CON.PCM_ITS ---
Problem List (1) Chronic kidney disease Status: Acute Consultation - Renal 02/05/18 PCP/ Referring MD: Requesting physician: Rigoberto Ashley MD Primary care physician: Romaine Velazquez MD Reason for Consultation:: Acute kidney injury on chronic kidney disease - History of Present Illness History of Present Illness: The patient is a 77 year old M past history significant for 2 diabetes mellitus , hypertension, coronary artery disease post CABG x 2 (most recently in 2016), hyperlipidemia, sleep apnea, gout, and aortic valve disease status post aortic valve replacement in 2016. 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 He is followed as an outpatient by Dr. Haroon Han, at their [place] office. She presented with cough ?1 week. The patient's cough is associated with sputum production and dyspnea. Symptoms worsened over the past week to the point where was unable to stay home. Patient was admitted and diagnosed with community-acquired pneumonia 2 days ago. We are asked to see the patient because of rising creatinine over the past 24 hours. She has baseline creatinine level of 1.9-2.1/dL. She does complain of intermittent nausea although there has been no vomiting prior to admission. There has been no diarrhea. The patient denies chest pain, edema or orthopnea. He not nauseated currently. Patient had not been on NSAIDs at home. Denies recent exposure to IV contrast. - Allergies Allergies: Allergies Penicillins [PCN] Allergy (Verified 02/04/18 04:22) Swelling - Current Medications Current Medications: Current Medications Acetaminophen (Tylenol) 650 mg PO Q4H PRN PRN PRN Reason: FEVER Last Admin: 02/05/18 01:58 Dose: 650 mg Albuterol/Ipratropium (Duoneb) 3 ml INHALATION Q4H.RT [facility] Last Admin: 02/05/18 07:52 Dose: 3 ml Allopurinol (Zyloprim) 150 mg PO DAILYCM [facility] Last Admin: 02/05/18 08:18 Dose: 150 mg Aspirin (Ecotrin) 81 mg PO DAILYCM [facility] Last Admin: 02/05/18 08:17 Dose: 81 mg Atorvastatin Calcium (Lipitor) 40 mg PO QHS [facility] Last Admin: 02/04/18 21:54 Dose: 40 mg Cholecalciferol (Vitamin D) 1,000 unit PO DAILY [facility] Last Admin: 02/04/18 07:57 Dose: 1,000 unit Furosemide (Lasix) 40 mg IV BID@1000,1800 [facility] Last Admin: 02/04/18 16:58 Dose: 40 mg Guaifenesin (Mucinex) 1,200 mg PO BID [facility] Last Admin: 02/04/18 21:55 Dose: 1,200 mg Levofloxacin (Levaquin) 250 mg in 50 mls @ 50 mls/hr IV Q24 [facility] Insulin Aspart ([facility]olog [facility] Last Admin: 02/05/18 08:21 Dose: 25 u Insulin Human NPH (Humulin N ([facility])) [facility] Last Admin: 02/05/18 08:22 Dose: 25 u Isosorbide Mononitrate (Imdur) 60 mg PO DAILY [facility] Last Admin: 02/04/18 07:55 Dose: 60 mg Levetiracetam (Keppra) 500 mg PO BID [facility] Last Admin: 02/04/18 21:54 Dose: 500 mg Metoprolol Tartrate (Lopressor (Beta Karyn)) 12.5 mg PO BID [facility] Last Admin: 02/04/18 21:55 Dose: 12.5 mg Multivitamins (Multivitamin) [facility] Last Admin: 02/05/18 08:19 Dose: 1 tablet Pantoprazole Sodium (Protonix) 20 mg PO DAILY [facility] Last Admin: 02/04/18 07:56 Dose: 20 mg Polysaccharide Iron Complex (Ferrex 150) 150 mg PO QODAY [facility] Last Admin: 02/04/18 07:55 Dose: 150 mg Potassium Chloride (K-Dur) [facility]q [facility] Last Admin: 02/05/18 08:19 Dose: 20 meq Sertraline HCl (Zoloft) 25 mg PO DAILY [facility] Last Admin: 02/04/18 07:57 Dose: 25 mg Sodium Chloride () 5 - 30 ml IV UD PRN PRN Reason: SALINE FLUSH Last Admin: 02/04/18 21:59 Dose: 10 ml Throat Lozenges (Cepacol Sore Throat Lozenge) 1 lozenge MUCOUS MEM Q2H PRN PRN PRN Reason: cough, sore throat Last Admin: 02/05/18 01:11 Dose: 1 lozenge Warfarin Sodium (Coumadin (Pbkc)) 2.5 mg PO DAILY@1700 AYLIN Last Admin: 02/04/18 16:58 Dose: 2.5 mg - Past Medical History Past Medical History (Chronic Problems): Chronic Problems Gout (Chronic) Sleep apnea (Chronic) Cholecystitis (Chronic) Seizure (Chronic) Hypomagnesemia (Chronic) DM type 2 (diabetes mellitus, type 2) (Chronic) Venous insufficiency of both lower extremities (Chronic) Hyperlipemia (Chronic) Aortic valve replaced (Chronic) January 2016 at [facility], pig valve Chronic renal failure, stage 3 (moderate) (Chronic) Morbid obesity with BMI of 45.0-49.9, adult (Chronic) Anemia (Chronic) CAD (coronary artery disease) (Chronic) Hx of CABG (Chronic) CABG in 1993 and then again in January of 2016 at [facility] along with an AVR HTN (hypertension) (Chronic) - Past Surgical History Surgical History: cataract, coronary bypass surgery - x 3, - - Aortic valve replacement, bilateral carpal tunnel release, PICC line. - Social History Smoking Status: Former smoker - Family History Maternal History Items: Stroke - mother at age 60 from stroke Sibling History Items: Seizures - recently diagnosed Review of Systems Constitutional: Reports: Chills, Malaise, Weakness. Denies: Anorexia, Fever, Night Sweats Eyes: Denies: Blurred vision, Vision Change HEENT: Denies: Head Aches, Sinus Congestion, Sinus Drainage Cardiovascular: Denies: Chest Pain, Edema, Orthopnea, Palpitations Respiratory: Reports: Cough, Shortness of breath at rest, Wheezing Gastrointestinal: Reports: Nausea. Denies: Abdominal Pain, Diarrhea, Vomiting Genitourinary: Denies: Dysuria Musculoskeletal: Denies: Joint Pain, Joint Tenderness Skin: Denies: Rash, Wounds Neurological: Denies: Numbness, Tingling, Focal weakness Hematologic/ Lymphatic: Denies: Easy Bruising, Easy Bleeding Patient Problems: Active and Suspected Problems Community acquired pneumonia (Acute) Left bundle branch block (Acute) Hypoxemia (Acute) Chronic kidney disease (Acute) - Physical Exam General: Alert, Oriented x3 HEENT: Atraumatic, Normocephalic Oral: Dry Mucosa Neck: Supple Lungs: Wheezes - bilateral wheeze without crackle. Cardiovascular: Normal S1, Normal S2, No murmurs, Tachycardic Abdomen: Bowel Sounds Present, Soft, Non Tender, Obese Extremities: No clubbing, No cyanosis, No edema Skin: No rashes Musculoskeletal: No Tenderness to Palpation of Joints or Extremities Lymphatic: No Cervical, Supraclavicular, or Inguinal Adenopathy Neurological: Cranial nerves II-XII grossly intact Vital Signs Temp Pulse Resp BP Pulse Ox 98 F 100 24 H 116/56 L 96 02/05/18 08:32 02/05/18 08:32 02/05/18 08:32 02/05/18 08:32 02/05/18 08:32 Oxygen Flow Rate (L/min) 2 Oxygen Delivery Method Nasal Cannula Weight: 125.3 kg Body Mass Index (BMI) 45.9 Intake and Output for Last 24 Hours 02/03/18 02/04/18 02/06/18 23:59 23:59 00:59 Intake Total 600 / 600 60 / 60 Output Total 625 / 625 200 / 200 Balance -25 / -25 -140 / -140 Microbiology Past 72 Hours 02/04/18 07:45 Influenza Types A,B Direct FA (AYUSH) - Final Mucosa - Nose 02/04/18 07:00 Streptococcus pneumoniae Antigen (M - Final Urine, Clean Catch 02/04/18 07:00 Legionella Antigen - Final Urine, Clean Catch Laboratory Tests Past 24 Hrs 02/05/18 02/05/18 05:28 05:28 WBC 6.7 RBC 3.51 L Hgb 10.8 L Hct 33.3 L MCV 94.9 H MCH 30.8 MCHC 32.4 RDW 14.5 RDW Differential 48.1 H Plt Count 133 L MPV 9.9 Immature Gran % (Auto) 0.100 Neut % (Auto) 66.3 Lymph % (Auto) 21.9 [place] % (Auto) 11.2 H Eos % (Auto) 0.4 Baso % (Auto) 0.1 Absolute Neuts (auto) 4.4 Absolute Lymphs (auto) 1.47 Total Counted Not Reportable Sodium 136 Potassium 4.1 Chloride 103 Carbon Dioxide 22.0 Anion Gap 11 BUN 44 H Creatinine 2.24 H Estim Creat Clear Calc 24.40 Est GFR (MDRD) Af Amer 37 L Est GFR (MDRD) Non-Af 30 L BUN/Creatinine Ratio 19.6 Glucose 153 H Calcium 8.5 Magnesium 1.4 L POC Glucose 03/10/1502/04/18 02/04/18 06:48 21:52 16:19 POC Glucose 153 H 101 196 H Assessment/Plan Active and Suspected Problems Community acquired pneumonia (Acute) Left bundle branch block (Acute) Hypoxemia (Acute) Chronic kidney disease (Acute) 1. Acute kidney injury on chronic kidney disease stage 3b-4. CKD is likely due to diabetic nephropathy. DARRYL may be due to diuresis in the setting of active infection (CAP). Will stop Lasix for now since there is no evidence of volume overload. Will also stop KCl while pt is off Lasix. Will check FEurea. Recheck renal panel in am. Monitor volume status. 2. Hypomagnesemia. Likely due to diuresis. Will give MagOx x 1. Recheck Mg in am. 3. T2DM. Glycemic control per hospital medicine service. 4. CAP. On Levaquin. Dose is OK for the current CrCl.
[2018-02-05] MEDS: Sertraline 50 MG Tablet 25 MG PO (10:32)
[2018-02-05] MEDS: Metoprolol Tartrate 25 MG Tablet 12.5 MG PO ×2 (10:33→21:50)
[2018-02-05] MEDS: Isosorbide Mononitrate 60 MG Tablet PO (10:33)
[2018-02-05] MEDS: levETIRAcetam 500 MG Tablet PO ×2 (10:33→21:51)
[2018-02-05] MEDS: guaiFENesin 1,200 MG Tablet 1200 MG PO ×2 (10:34→21:51)
[2018-02-05] MEDS: 0.9% NaCl Peripheral Flush Adult/Peds IV ×3 (10:46→20:00)
[2018-02-05] MEDS: Magnesium Oxide 400 MG Tablet PO (10:54)
--- NOTE | 2018-02-05 11:40 | PN_ITS ---
Patient Problems: Active and Suspected Problems Community acquired pneumonia (Acute) Left bundle branch block (Acute) Hypoxemia (Acute) Chronic kidney disease (Acute) Subjective: Follow-up on community-acquired pneumonia Patient was seen and examined. He is very wheezy, breathing treatment. He states he feels better than when he came in. Denied any fever or chills. Using his CPAP at night and when the pain. Vitals/I&O's: Vital Signs Temp Pulse Resp BP Pulse Ox 98 F 110 H 24 H 145/81 H 96 02/05/18 09:30 02/05/18 10:33 02/05/18 10:00 02/05/18 10:33 02/05/18 10:00 Oxygen Flow Rate (L/min) 2 Oxygen Delivery Method Nasal Cannula Weight: 125.3 kg Body Mass Index (BMI) 45.9 Intake and Output for Last 24 Hours 02/03/18 02/04/18 02/06/18 23:59 23:59 00:59 Intake Total 600 / 600 60 / 60 Output Total 625 / 625 200 / 200 Balance -25 / -25 -140 / -140 General: Alert, Oriented x3, Cooperative, No apparent distress, - - morbidly obese HEENT: Atraumatic, PERRLA, EOMI, Normocephalic Oral: Moist Mucosa Neck: Supple Lungs: Clear to auscultation, Normal air movement Cardiovascular: Regular rate, Regular Rhythm, Normal S1, Normal S2, Murmur - Over the left lower sternal border and mitral region Abdomen: Bowel Sounds Present, Soft, Non Tender, Non-Distended, No Hepato- splenomegaly Extremities: Edema - bilateral +1 edema, nontender Skin: No rashes Musculoskeletal: No Tenderness to Palpation of Joints or Extremities Lymphatic: No Cervical, Supraclavicular, or Inguinal Adenopathy Neurological: Cranial nerves II-XII grossly intact Psych/Mental Status: Normal Affect, Appropriate Microbiology Past 72 Hours 02/04/18 07:45 Mucosa - Nose Influenza Types A,B Direct FA (AYUSH) - Final 02/04/18 07:00 Urine, Clean Catch Streptococcus pneumoniae Antigen (M - Final 02/04/18 07:00 Urine, Clean Catch Legionella Antigen - Final Laboratory Results 02/04/18 16:19: POC Glucose 196 H 02/04/18 21:52: POC Glucose 101 02/05/18 05:28: WBC 6.7, RBC 3.51 L, Hgb 10.8 L, Hct 33.3 L, MCV 94.9 H, MCH 30.8, MCHC 32.4, RDW 14.5, RDW Differential 48.1 H, Plt Count 133 L, MPV 9.9, Immature Gran % (Auto) 0.100, Neut % (Auto) 66.3, Lymph % (Auto) 21.9, Jasper % ( Auto) 11.2 H, Eos % (Auto) 0.4, Baso % (Auto) 0.1, Absolute Neuts (auto) 4.4, Absolute Lymphs (auto) 1.47, Total Counted Not Reportable 02/05/18 05:28: Sodium 136, Potassium 4.1, Chloride 103, Carbon Dioxide 22.0, Anion Gap 11, BUN 44 H, Creatinine 2.24 H, Estim Creat Clear Calc 24.40, Est GFR (MDRD) Af Amer 37 L, Est GFR (MDRD) Non-Af 30 L, BUN/Creatinine Ratio 19.6, Glucose 153 H, Calcium 8.5, Magnesium 1.4 L 02/05/18 06:48: POC Glucose 153 H Current Medications Acetaminophen (Tylenol) 650 mg PO Q4H PRN PRN PRN Reason: FEVER Last Admin: 02/05/18 01:58 Dose: 650 mg Albuterol/Ipratropium (Duoneb) 3 ml INHALATION Q4H.RT [facility] Last Admin: 02/05/18 11:39 Dose: 3 ml Allopurinol (Zyloprim) 150 mg PO DAILYCM [facility] Last Admin: 02/05/18 08:18 Dose: 150 mg Aspirin (Ecotrin) 81 mg PO DAILYCM [facility] Last Admin: 02/05/18 08:17 Dose: 81 mg Atorvastatin Calcium (Lipitor) 40 mg PO QHS [facility] Last Admin: 02/04/18 21:54 Dose: 40 mg Cholecalciferol (Vitamin D) 1,000 unit PO DAILY [facility] Last Admin: 02/05/18 10:32 Dose: 1,000 unit Guaifenesin (Mucinex) 1,200 mg PO BID [facility] Last Admin: 02/05/18 10:34 Dose: 1,200 mg Levofloxacin (Levaquin) 250 mg in 50 mls @ 50 mls/hr IV Q24 [facility] Last Admin: 02/05/18 10:46 Dose: 50 mls/hr Insulin Aspart ([facility]olog [facility] ([facility] Last Admin: 02/05/18 08:21 Dose: 25 u Insulin Human NPH (Humulin N ([facility] Last Admin: 02/05/18 08:22 Dose: 25 u Isosorbide Mononitrate (Imdur) 60 mg PO DAILY [facility] Last Admin: 02/05/18 10:33 Dose: 60 mg Levetiracetam (Keppra) 500 mg PO BID [facility] Last Admin: 02/05/18 10:33 Dose: 500 mg Metoprolol Tartrate (Lopressor (Beta Josey)) 12.5 mg PO BID [facility] Last Admin: 02/05/18 10:33 Dose: 12.5 mg Multivitamins ([facility]ivitamin) [facility] Last Admin: 02/05/18 08:19 Dose: 1 tablet Polysaccharide Iron Complex (Ferrex 150) 150 mg PO QODAY [facility] Last Admin: 02/04/18 07:55 Dose: 150 mg Potassium Chloride (K-Dur) [facility]q [facility] Last Admin: 02/05/18 08:19 Dose: 20 meq Sertraline HCl (Zoloft) 25 mg PO DAILY [facility] Last Admin: 02/05/18 10:32 Dose: 25 mg Sodium Chloride () 5 - 30 ml IV UD PRN PRN Reason: SALINE FLUSH Last Admin: 02/05/18 10:46 Dose: 10 ml Throat Lozenges (Cepacol Sore Throat Lozenge) 1 lozenge MUCOUS MEM Q2H PRN PRN PRN Reason: cough, sore throat Last Admin: 02/05/18 10:54 Dose: 1 lozenge Warfarin Sodium (Coumadin (Pbkc)) 2.5 mg PO DAILY@1700 [facility] Last Admin: 02/04/18 16:58 Dose: 2.5 mg Assessment/Plan Active and Suspected Problems Community acquired pneumonia (Acute) Left bundle branch block (Acute) Hypoxemia (Acute) Chronic kidney disease (Acute) 77-year-old male with history of morbid obesity, CAD status post CABG, AUTUMN on CPAP comes in with complaints of cough with sputum production and worsening shortness of breath. 1. Acute hypoxic respiratory failure secondary to possible COPD exacerbation aqnd possible acute on chronic diastolic heart failure. He is on 3 L of oxygen, will wean off for SPO2 more than 94% 2. Possible COPD exacerbation, no known history of COPD, former smoker,chest x- ray ?2 shows no infiltrates, patient has generalized wheezing, on breathing treatment, IV Levaquin, will start patient on IV Solu-Medrol 40 mg every 8 hours , will continue to monitor patient closely 3. Possible acute on chronic diastolic heart failure, 2D echo pending, last 2D echo in our system was 2013, managed on IV Lasix, Lasix held by nephrology on account of acute kidney injury, will continue on strict I's and O's, will monitor patient's vitals closely 4. Acute kidney injury secondary to diuretic therapy, baseline is between 1.8- 2.0, IV Lasix held, repeat BMP in a.m. 5. New left bundle branch block, history of CAD status post CABG, patient is asymptomatic for chest pain, troponin is 0.02, not trended, will repeat one this AM, 2d-echo pending, consult cardiology 6. Status post aortic valve replacement, patient is on Coumadin, INR is pending , continue Coumadin therapy, daily INR 7. CAD status post CABG, aspirin, statin, beta-josey 8. Type II DM, blood sugars controlled, on insulin therapy, continue with Accu- Cheks and insulin sliding scale 9. Seizure disorder, on Keppra 10. Morbid Obesity, BMI 46, diet, exercise and weight loss recommended 11. DVT PPx - on coumadin Code Visit Inpatient E&M: 24089 Subs Hosp L3
[2018-02-05 12:23] LABS: International Normalized Ratio 2.3; Prothrombin Time (Protime)PT. 25.3 SECONDS (11.7-14.9)
[2018-02-05 17:26] LABS: Bedside Glucose 254 mg/dL (70-110)
[2018-02-05] MEDS: Atorvastatin Calcium 40 MG Tablet PO (21:50)
[2018-02-05 22:06] LABS: Bedside Glucose 354 mg/dL (70-110)
--- NOTE | 2018-02-05 23:34 | CPS ---
pt was 86% on own bipap -added 3 l/m in line with home bipap
[2018-02-06] VITALS (19 sets, daily range): BP systolic 104–141; BP diastolic 46–80; PULSE 85–116; RESP 16–22; TEMP 36.5–36.6; O2SAT 94–97
[2018-02-06] MEDS: Ipratropium/Albuterol Sulfate 3 ML AMPUL.NEB INHALATION ×4 (03:40→15:38)
[2018-02-06 05:56] LABS: BUN 57 mg/dL (7-18); BUN/Creat Ratio 25.8 RATIO (10-20); Calcium,Total 8.6 mg/dL (8.5-10.1); Chloride 101 mmol/L (98-107); Creatinine, Serum 2.21 mg/dL (0.70-1.30); EST Glomerular Filtration Rate 31 mL/min (>60); Est Glom Filt Rate - Afr Amer 37 mL/min (>60); Estimated Creatinine Clearance 24.74 ml/min; Glucose 300 mg/dL (74-106); Magnesium 1.6 mg/dL (1.6-2.6); Phosphorus 3.1 mg/dL (2.5-4.9); Sodium Level 133 mmol/L (136-145)
[2018-02-06 06:05] LABS: International Normalized Ratio 2.3; Prothrombin Time (Protime)PT. 25.2 SECONDS (11.7-14.9)
[2018-02-06] MEDS: BENZOCAINE/MENTHOL 1 LOZENGE MUCOUS MEM ×2 (06:21→15:38)
[2018-02-06 06:56] LABS: Bedside Glucose 302 mg/dL (70-110)
[2018-02-06] MEDS: Insulin NPH Human 100 UNITS/ML PEN 25 UNITS SC ×2 (09:07→16:50)
[2018-02-06] MEDS: Aspirin E.C. 81 MG Tablet PO (09:07)
[2018-02-06] MEDS: Isosorbide Mononitrate 60 MG Tablet PO (09:08)
[2018-02-06] MEDS: Multivitamins,Therapeutic Tablet 1 TABLET PO (09:08)
[2018-02-06] MEDS: Allopurinol 300 MG Tablet 150 MG PO (09:08)
[2018-02-06] MEDS: levETIRAcetam 500 MG Tablet PO ×2 (09:09→21:05)
[2018-02-06] MEDS: Metoprolol Tartrate 25 MG Tablet 12.5 MG PO ×2 (09:09→21:05)
[2018-02-06] MEDS: Iron Polysaccharide Complex 150 MG CAPSULE PO (09:10)
[2018-02-06] MEDS: Sertraline 50 MG Tablet 25 MG PO (09:10)
[2018-02-06] MEDS: guaiFENesin 1,200 MG Tablet 1200 MG PO ×2 (09:10→21:06)
[2018-02-06] MEDS: levoFLOXacin 250 MG Tablet PO (10:34)
--- NOTE | 2018-02-06 10:34 | PN.RENAL_ITS ---
Patient Problems: Active and Suspected Problems Community acquired pneumonia (Acute) Left bundle branch block (Acute) Hypoxemia (Acute) Chronic kidney disease (Acute) Subjective: Patient stated breathing is better but still SOB. On NC . No nausea No vomiting. No diarrhea - Physical Exam General: Alert, Oriented x3 HEENT: Atraumatic Oral: Moist Mucosa Neck: Supple, No JVD Lungs: Rhonchi, Wheezes Cardiovascular: Regular rate, Regular Rhythm, Normal S1 Abdomen: Bowel Sounds Present, Soft, Non Tender Extremities: No clubbing, No cyanosis, No edema Skin: No rashes Musculoskeletal: No Tenderness to Palpation of Joints or Extremities Lymphatic: No Cervical, Supraclavicular, or Inguinal Adenopathy Neurological: Cranial nerves II-XII grossly intact, Neuro grossly intact, Motor Exam 5/5 strength throughout Psych/Mental Status: Normal Affect Vital Signs Temp Pulse Resp BP Pulse Ox 97.7 F L 96 20 H 117/49 L 96 02/06/18 09:05 02/06/18 09:09 02/06/18 09:05 02/06/18 09:05 02/06/18 09:05 Oxygen Flow Rate (L/min) 2 Oxygen Delivery Method Nasal Cannula Weight: 125.3 kg Body Mass Index (BMI) 45.9 Intake and Output for Last 24 Hours 02/04/18 02/05/18 02/06/18 22:59 23:59 23:59 Intake Total 240 / 240 Output Total Balance 240 / 240 Microbiology Past 72 Hours 02/04/18 07:45 Influenza Types A,B Direct FA (AYUSH) - Final Mucosa - Nose 02/04/18 07:00 Streptococcus pneumoniae Antigen (M - Final Urine, Clean Catch 02/04/18 07:00 Legionella Antigen - Final Urine, Clean Catch Laboratory Tests Past 24 Hrs 02/05/18 02/06/18 02/06/18 12:03 05:10 05:10 PT 25.3 H 25.2 H INR 2.3 2.3 Sodium 133 L Potassium 5.0 Chloride 101 Carbon Dioxide 21.0 BUN 57 H Creatinine 2.21 H Estim Creat Clear Calc 24.74 Est GFR (MDRD) Af Amer 37 L Est GFR (MDRD) Non-Af 31 L BUN/Creatinine Ratio 25.8 H Glucose 300 H Calcium 8.6 Phosphorus 3.1 Magnesium 1.6 Albumin 3.0 L POC Glucose 02/06/18 02/05/18 02/05/18 06:38 21:42 17:00 POC Glucose 302 H 354 H 254 H Assessment/Plan Active and Suspected Problems Community acquired pneumonia (Acute) Left bundle branch block (Acute) Hypoxemia (Acute) Chronic kidney disease (Acute) 1. Acute kidney injury on chronic kidney disease stage 3b-4. 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 DARRYL is most probably prerenal from diuresis in setting of probably pulmonary HTN and decreased LV filling Cr is stable at 2.2 mg/dL Continue holding lasix d/c Kcl Recheck renal panel in am. Monitor volume status. 2. Hypomagnesemia. replaced 3. T2DM. Glycemic control per hospital medicine service. 4. CAP. On Levaquin. Dose is OK for the current CrCl. Will continue to follow Maite Javier MD [phone]
--- NOTE | 2018-02-06 10:47 | PCM.PN.HOSP ---
Patient Problems: Active and Suspected Problems Community acquired pneumonia (Acute) Left bundle branch block (Acute) Hypoxemia (Acute) Chronic kidney disease (Acute) Subjective: Patient is a 77-year-old gentleman with multiple comorbidities including CAD status post CABG obstructive sleep apnea on CPAP who presents with progressive shortness of breath in addition to a productive cough and assessment of acute hypoxic respiratory failure secondary to combination of COPD exacerbation as well as acute on chronic diastolic heart failure was made admitted to a monitored bed for subsequent management Objective: GENERAL: Dyspneic at rest HEENT: Clear conjunctiva, NECK; supple, normal thyroid, CHEST: Diminished mid to auscultation bilaterally, HEART: Regular S1 S2, no audible murmurs ABDOMEN: soft, non-tender, normoactive bowel sounds, RECTAL: deferred EXTREMITIES: edema, no clubbing, no cyanosis. THEATER TECHNICIAN: Awake, no lateralizing signs. SKIN: No Rash, Vitals/I&O's: Vital Signs Temp Pulse Resp BP Pulse Ox 97.7 F L 96 20 H 117/49 L 96 02/06/18 09:05 02/06/18 09:09 02/06/18 09:05 02/06/18 09:05 02/06/18 09:05 Oxygen Flow Rate (L/min) 2 Oxygen Delivery Method Nasal Cannula Weight: 125.3 kg Body Mass Index (BMI) 45.9 Intake and Output for Last 24 Hours 02/04/18 02/05/18 02/06/18 22:59 23:59 23:59 Intake Total 240 / 240 Output Total Balance 240 / 240 Microbiology Past 72 Hours 02/04/18 07:45 Mucosa - Nose Influenza Types A,B Direct FA (AYUSH) - Final 02/04/18 07:00 Urine, Clean Catch Streptococcus pneumoniae Antigen (M - Final 02/04/18 07:00 Urine, Clean Catch Legionella Antigen - Final Laboratory Results 02/05/18 12:03: PT 25.3 H, INR 2.3 02/05/18 17:00: POC Glucose 254 H 02/05/18 21:42: POC Glucose 354 H 02/06/18 05:10: Sodium 133 L, Potassium 5.0, Chloride 101, Carbon Dioxide 21.0, BUN 57 H, Creatinine 2.21 H, Estim Creat Clear Calc 24.74, Est GFR (MDRD) Af Amer 37 L, Est GFR (MDRD) Non-Af 31 L, BUN/Creatinine Ratio 25.8 H, Glucose 300 H, Calcium 8.6, Phosphorus 3.1, Magnesium 1.6, Albumin 3.0 L 02/06/18 05:10: PT 25.2 H, INR 2.3 02/06/18 06:38: POC Glucose 302 H Current Medications Acetaminophen (Tylenol) 650 mg PO Q4H PRN PRN PRN Reason: FEVER Last Admin: 02/05/18 01:58 Dose: 650 mg Albuterol Sulfate (Ventolin Aerosols) 2.5 mg INHALATION Q2H PRN PRN PRN Reason: WHEEZING Albuterol/Ipratropium (Duoneb) 3 ml INHALATION Q4H.RT [facility] Last Admin: 02/06/18 07:41 Dose: 3 ml [facility]opurinol ([facility]oprim) [facility] Last Admin: 02/06/18 09:08 Dose: 150 mg Aspirin (Ecotrin) [facility] Last Admin: 02/06/18 09:07 Dose: 81 mg Atorvastatin Calcium (Lipitor) 40 mg PO QHS [facility] Last Admin: 02/05/18 21:50 Dose: 40 mg Cholecalciferol (Vitamin D) 1,000 unit PO DAILY [facility] Last Admin: 02/06/18 09:10 Dose: 1,000 unit Dextrose (D50w Syringe) 0 gm IV X1 PRN; Protocol PRN Reason: Hypoglycemia Glucagon () 1 mg IM .X1 PRN PRN Reason: Hypoglycemia Guaifenesin (Mucinex) 1,200 mg PO BID [facility] Last Admin: 02/06/18 09:10 Dose: 1,200 mg Insulin Aspart (Novolog Flexpen (Bkc)) [facility] Last Admin: 02/06/18 09:06 Dose: 25 u Insulin Aspart (Novolog Flexpen (Bkc)) 0 units SC ACHS [facility] PRN Reason: Protocol Last Admin: 02/06/18 09:06 Dose: 3 u Insulin Human NPH (Humulin N ([facility])) [facility] Last Admin: 02/06/18 09:07 Dose: 25 u Isosorbide Mononitrate (Imdur) 60 mg PO DAILY [facility] Last Admin: 02/06/18 09:08 Dose: 60 mg Levetiracetam (Keppra) 500 mg PO BID [facility] Last Admin: 02/06/18 09:09 Dose: 500 mg Levofloxacin (Levaquin) 250 mg PO DAILY@0600 [facility] Last Admin: 02/06/18 10:34 Dose: 250 mg Methylprednisolone (Solu-Medrol) 40 mg IV Q8 [facility] Last Admin: 02/06/18 05:13 Dose: 40 mg Metoprolol Tartrate (Lopressor (Beta Karyn)) 12.5 mg PO BID [facility] Last Admin: 02/06/18 09:09 Dose: 12.5 mg Multivitamins (Multivitamin) 1 tablet PO DAILYCM [facility] Last Admin: 02/06/18 09:08 Dose: 1 tablet Polysaccharide Iron Complex (Ferrex 150) 150 mg PO QODAY [facility] Last Admin: 02/06/18 09:10 Dose: 150 mg Sertraline HCl (Zoloft) 25 mg PO DAILY [facility] Last Admin: 02/06/18 09:10 Dose: 25 mg Sodium Chloride () 5 - 30 ml IV UD PRN PRN Reason: SALINE FLUSH Last Admin: 02/05/18 20:00 Dose: 10 ml Throat Lozenges (Cepacol Sore Throat Lozenge) 1 lozenge MUCOUS MEM Q2H PRN PRN PRN Reason: cough, sore throat Last Admin: 02/06/18 06:21 Dose: 1 lozenge Warfarin Sodium (Coumadin (Pbkc)) 2.5 mg PO DAILY@1700 [facility] Last Admin: 02/05/18 17:10 Dose: 2.5 mg Assessment/Plan Active and Suspected Problems Community acquired pneumonia (Acute) Left bundle branch block (Acute) Hypoxemia (Acute) Chronic kidney disease (Acute) Patient is a 77-year-old gentleman with multiple comorbidities including CAD status post CABG obstructive sleep apnea on CPAP who presents with progressive shortness of breath in addition to a productive cough and assessment of acute hypoxic respiratory failure secondary to combination of COPD exacerbation as well as acute on chronic diastolic heart failure was made admitted to a monitored bed for subsequent management 1. Acute hypoxic respiratory failure secondary to combination of COPD and acute on chronic diastolic heart failure patient has been placed on supplemental oxygen titrated to keep oxygen saturation greater than 90 with plans for patient to be assessed for home oxygen need prior to discharge 2. Acute COPD exacerbation management systemic steroid, (dose adjusted), p.o. Levaquin and bronchodilator treatment in addition to supplemental oxygen 2. Acute on chronic diastolic heart failure echo ordered and pending 4. CAD status post CABG EKG on admission demonstrated left bundle branch block which is old troponin 0 0.02 5. Obesity hypoventilation syndrome 6. Obstructive sleep apnea patient is on CPAP at night 7. Diabetes mellitus type II with complications including chronic kidney disease stage III: Patient is on insulin did continue in addition to Accu-Cheks before meals and at bedtime with sliding scale coverage 8. History of aortic valve replacement patient is on systemic anticoagulation with Coumadin with therapeutic INR not 9. Seizure disorder patient is on Keppra did continue 10. Morbid obesity with BMI of 46 weight loss recommended; patient was also instructed to follow-up with PCP for possible referral for gastric bypass surgery 11. Chronic kidney disease stage III patient kidney function appears to be close to his baseline. Patient was seen in consultation by nephrology notes and recommendations reviewed 12. Degenerative joint disease 13. DVT prophylaxis on Coumadin no need for additional measures 14. DARRYL ruled out Clinical Impression(s) from Imaging Studies Chest X-Ray 02/04/18 04:29 IMPRESSION: Degenerative changes, as described above. No demonstrated acute cardiopulmonary process. Electronically Signed: Bela Garcia MD at 5:48 EST Tel , Service support , Chest X-Ray 02/05/18 05:55 IMPRESSION: Degenerative changes, as described above. No demonstrated acute cardiopulmonary process. Electronically Signed: Bela Garcia MD at 6:28 EDT Tel , Service support , Code Visit Inpatient E&M: 95140 Subs Hosp L3
[2018-02-06 12:01] LABS: Bedside Glucose 400 mg/dL (70-110)
[2018-02-06 17:00] LABS: Bedside Glucose 377 mg/dL (70-110)
[2018-02-06] MEDS: Atorvastatin Calcium 40 MG Tablet PO (21:05)
[2018-02-06 22:56] LABS: Bedside Glucose 398 mg/dL (70-110)
[2018-02-07] VITALS (18 sets, daily range): BP systolic 122–126; BP diastolic 53–74; PULSE 74–101; RESP 16–24; TEMP 36.4–36.5; O2SAT 95–96
[2018-02-07] MEDS: Ipratropium/Albuterol Sulfate 3 ML AMPUL.NEB INHALATION ×6 (03:53→22:44)
[2018-02-07] MEDS: levoFLOXacin 250 MG Tablet PO (05:25)
[2018-02-07 06:36] LABS: Hematocrit 32.5 % (40-54); Hemoglobin 10.5 g/dl (13.0-16.5); Mean Corp Hgb Conc 32.3 g/gl (32-36); Mean Corpuscular Hgb 30.1 pg (27.0-32.0); Mean Corpuscular Volume 93.1 fL (80-94); Mean Platelet Vol. 10.1 fl (6.2-12.0); Platelet Count 163 K/mm3 (150-450); RBC Distribution Width CV 14.5 % (11.6-14.6); Red Blood Count 3.49 M/mm3 (4.6-6.2); White Blood Count 15.8 K/mm3 (4.4-11.0)
[2018-02-07 06:37] LABS: Scan Indicated on CBC? Y/N NO
[2018-02-07 06:39] LABS: International Normalized Ratio 3.1; Prothrombin Time (Protime)PT. 32.2 SECONDS (11.7-14.9)
[2018-02-07 06:58] LABS: Anion Gap 9 (5-15); BUN 67 mg/dL (7-18); BUN/Creat Ratio 30.9 RATIO (10-20); Calcium,Total 8.8 mg/dL (8.5-10.1); Chloride 103 mmol/L (98-107); Creatinine, Serum 2.17 mg/dL (0.70-1.30); EST Glomerular Filtration Rate 32 mL/min (>60); Est Glom Filt Rate - Afr Amer 38 mL/min (>60); Estimated Creatinine Clearance 25.19 ml/min; Glucose 288 mg/dL (74-106); Sodium Level 134 mmol/L (136-145)
[2018-02-07 07:06] LABS: Bedside Glucose 302 mg/dL (70-110)
[2018-02-07] MEDS: Insulin NPH Human 100 UNITS/ML PEN 25 UNITS SC (08:18)
[2018-02-07] MEDS: BENZOCAINE/MENTHOL 1 LOZENGE MUCOUS MEM ×3 (08:25→22:26)
[2018-02-07] MEDS: Multivitamins,Therapeutic Tablet 1 TABLET PO (08:25)
[2018-02-07] MEDS: Allopurinol 300 MG Tablet 150 MG PO (08:25)
[2018-02-07] MEDS: Aspirin E.C. 81 MG Tablet PO (08:25)
[2018-02-07] MEDS: Isosorbide Mononitrate 60 MG Tablet PO (09:54)
[2018-02-07] MEDS: Metoprolol Tartrate 25 MG Tablet 12.5 MG PO ×2 (09:54→21:10)
[2018-02-07] MEDS: levETIRAcetam 500 MG Tablet PO ×2 (09:54→21:11)
[2018-02-07] MEDS: guaiFENesin 1,200 MG Tablet 1200 MG PO ×2 (09:56→21:10)
[2018-02-07] MEDS: Sertraline 50 MG Tablet 25 MG PO (09:56)
--- NOTE | 2018-02-07 10:59 | PCM.PN.HOSP ---
Patient Problems: Active and Suspected Problems Left bundle branch block (Acute) Hypoxemia (Acute) Chronic kidney disease (Acute) Subjective: Patient seen his breathing status improving. Requested for PT and OT eval and treatment. Did adjust his insulin doses in view of persistently high hyperglycemia Objective: GENERAL: Dyspneic at rest HEENT: Clear conjunctiva, NECK; supple, normal thyroid, CHEST: Diminished mid to auscultation bilaterally, HEART: Regular S1 S2, no audible murmurs ABDOMEN: soft, non-tender, normoactive bowel sounds, RECTAL: deferred EXTREMITIES: edema, no clubbing, no cyanosis. SUTURE GAUGER: Awake, no lateralizing signs. SKIN: No Rash, Vitals/I&O's: Vital Signs Temp Pulse Resp BP Pulse Ox 97.5 F L 86 20 H 122/70 H 96 02/07/18 09:52 02/07/18 09:54 02/07/18 09:52 02/07/18 09:52 02/07/18 09:52 Oxygen Flow Rate (L/min) 2 Oxygen Delivery Method Nasal Cannula Weight: 124 kg Body Mass Index (BMI) 45.9 Intake and Output for Last 24 Hours 02/05/18 02/06/18 02/07/18 23:59 23:59 23:59 Intake Total 1055 / 1055 40 / 40 Output Total Balance 1055 / 1055 40 / 40 Microbiology Past 72 Hours 02/04/18 07:45 Mucosa - Nose Influenza Types A,B Direct FA (AYUSH) - Final 02/04/18 07:00 Urine, Clean Catch Streptococcus pneumoniae Antigen (M - Final 02/04/18 07:00 Urine, Clean Catch Legionella Antigen - Final Laboratory Results 02/06/18 11:14: POC Glucose 400 H 02/06/18 16:46: POC Glucose 377 H 02/06/18 21:04: POC Glucose 398 H 02/07/18 05:57: PT 32.2 H, INR 3.1 02/07/18 05:57: WBC 15.8 H, RBC 3.49 L, Hgb 10.5 L, Hct 32.5 L, MCV 93.1, MCH 30.1, MCHC 32.3, RDW 14.5, RDW Differential 49.0 H, Plt Count 163, MPV 10.1 02/07/18 05:57: Sodium 134 L, Potassium 5.0, Chloride 103, Carbon Dioxide 22.0, Anion Gap 9, BUN 67 H, Creatinine 2.17 H, Estim Creat Clear Calc 25.19, Est GFR (MDRD) Af Amer 38 L, Est GFR (MDRD) Non-Af 32 L, BUN/Creatinine Ratio 30.9 H, Glucose 288 H, Calcium 8.8, Magnesium 2.0 02/07/18 06:43: POC Glucose 302 H Current Medications Acetaminophen (Tylenol) 650 mg PO Q4H PRN PRN PRN Reason: FEVER Last Admin: 02/05/18 01:58 Dose: 650 mg Albuterol Sulfate (Ventolin Aerosols) 2.5 mg INHALATION Q2H PRN PRN PRN Reason: WHEEZING Albuterol/Ipratropium (Duoneb) 3 ml INHALATION Q4H.RT [facility] Last Admin: 02/07/18 07:33 Dose: 3 ml Allopurinol (Zyloprim) 150 mg PO DAILYCM [facility] Last Admin: 02/07/18 08:25 Dose: 150 mg [facility]) [facility] Last Admin: 02/07/18 08:25 Dose: 81 mg Atorvastatin Calcium (Lipitor) 40 mg PO QHS [facility] Last Admin: 02/06/18 21:05 Dose: 40 mg Cholecalciferol (Vitamin D) 1,000 unit PO DAILY [facility] Last Admin: 02/07/18 09:56 Dose: 1,000 unit Dextrose (D50w Syringe) 0 gm IV X1 PRN; Protocol PRN Reason: Hypoglycemia Glucagon () 1 mg IM .X1 PRN PRN Reason: Hypoglycemia Guaifenesin (Mucinex) 1,200 mg PO BID [facility] Last Admin: 02/07/18 09:56 Dose: 1,200 mg Insulin Aspart (Novolog Flexpen (Bkc)) 0 units SC ACHS [facility] PRN Reason: Protocol Last Admin: 02/07/18 08:19 Dose: 3 u Insulin Aspart (Novolog Flexpen (Bkc)) 25 units SC TIDAC [facility] Last Admin: 02/07/18 08:18 Dose: 25 units Isosorbide Mononitrate (Imdur) 60 mg PO DAILY [facility] Last Admin: 02/07/18 09:54 Dose: 60 mg Levetiracetam (Keppra) 500 mg PO BID [facility] Last Admin: 02/07/18 09:54 Dose: 500 mg Levofloxacin (Levaquin) 250 mg PO DAILY@0600 [facility] Last Admin: 02/07/18 05:25 Dose: 250 mg Metoprolol Tartrate (Lopressor (Beta Karyn)) 12.5 mg PO BID [facility] Last Admin: 02/07/18 09:54 Dose: 12.5 mg Multivitamins (Multivitamin) 1 tablet PO DAILYCM [facility] Last Admin: 02/07/18 08:25 Dose: 1 tablet Polysaccharide Iron Complex (Ferrex 150) 150 mg PO QODAY [facility] Last Admin: 02/06/18 09:10 Dose: 150 mg Sertraline HCl (Zoloft) 25 mg PO DAILY [facility] Last Admin: 02/07/18 09:56 Dose: 25 mg Sodium Chloride () 5 - 30 ml IV UD PRN PRN Reason: SALINE FLUSH Last Admin: 02/05/18 20:00 Dose: 10 ml Throat Lozenges (Cepacol Sore Throat Lozenge) 1 lozenge MUCOUS MEM Q2H PRN PRN PRN Reason: cough, sore throat Last Admin: 02/07/18 08:25 Dose: 1 lozenge Warfarin Sodium (Coumadin (Pbkc)) 2.5 mg PO DAILY@1700 [facility] Last Admin: 02/06/18 16:50 Dose: 2.5 mg Assessment/Plan Active and Suspected Problems Left bundle branch block (Acute) Hypoxemia (Acute) Chronic kidney disease (Acute) Patient is a 77-year-old gentleman with multiple comorbidities including CAD status post CABG obstructive sleep apnea on CPAP who presents with progressive shortness of breath in addition to a productive cough and assessment of acute hypoxic respiratory failure secondary to combination of COPD exacerbation as well as acute on chronic diastolic heart failure was made admitted to a monitored bed for subsequent management 1. Acute hypoxic respiratory failure secondary to combination of COPD and acute on chronic diastolic heart failure patient has been placed on supplemental oxygen titrated to keep oxygen saturation greater than 90 with plans for patient to be assessed for home oxygen need prior to discharge 2. Acute COPD exacerbation management systemic steroid, (dose adjusted), p.o. Levaquin and bronchodilator treatment in addition to supplemental oxygen 2. Acute on chronic diastolic heart failure echo ordered and pending 4. CAD status post CABG EKG on admission demonstrated left bundle branch block which is old troponin 0 0.02 5. Obesity hypoventilation syndrome 6. Obstructive sleep apnea patient is on CPAP at night 7. Diabetes mellitus type II with complications including chronic kidney disease stage III: Patient is on insulin did continue in addition to Accu-Cheks before meals and at bedtime with sliding scale coverage 8. History of aortic valve replacement patient is on systemic anticoagulation with Coumadin with therapeutic INR not 9. Seizure disorder patient is on Keppra did continue 10. Morbid obesity with BMI of 46 weight loss recommended; patient was also instructed to follow-up with PCP for possible referral for gastric bypass surgery 11. Chronic kidney disease stage III patient kidney function appears to be close to his baseline. Patient was seen in consultation by nephrology notes and recommendations reviewed 12. Degenerative joint disease 13. DVT prophylaxis on Coumadin no need for additional measures 14. DARRYL ruled out 15. Community-acquired pneumonia ruled out 16. Physical deconditioning requested for PT OT eval and social work administrator to assist with discharge planning Clinical Impression(s) from Imaging Studies Chest X-Ray 02/04/18 04:29 IMPRESSION: Degenerative changes, as described above. No demonstrated acute cardiopulmonary process. Electronically Signed: Bela Garcia MD at 5:48 EST Tel , Service support , Chest X-Ray 02/05/18 05:55 IMPRESSION: Degenerative changes, as described above. No demonstrated acute cardiopulmonary process. Electronically Signed: Bela Garcia MD at 6:28 EDT Tel , Service support , Code Visit Inpatient E&M: 11428 Subs Hosp L3
--- NOTE | 2018-02-07 11:21 | PN.RENAL_ITS ---
Patient Problems: Active and Suspected Problems Community acquired pneumonia (Acute) Left bundle branch block (Acute) Hypoxemia (Acute) Chronic kidney disease (Acute) Subjective: No acute events. Remains in NC 2L/M Breathing is not improving . still in SOB No CP Good appetite - Physical Exam General: Alert, Oriented x3, - - Morbid obese HEENT: Atraumatic Oral: Moist Mucosa Neck: Supple, No JVD, - - thick neck Lungs: Normal air movement, Diminished, Rhonchi, Short of Breath, Wheezes Cardiovascular: Regular rate, Regular Rhythm, Normal S1 Abdomen: Bowel Sounds Present, Soft, Non Tender Extremities: No clubbing, No cyanosis, - - +1 edema of LE Skin: No rashes Musculoskeletal: No Tenderness to Palpation of Joints or Extremities Lymphatic: No Cervical, Supraclavicular, or Inguinal Adenopathy Neurological: Cranial nerves II-XII grossly intact, Neuro grossly intact Psych/Mental Status: Normal Affect Vital Signs Temp Pulse Resp BP Pulse Ox 97.5 F L 84 18 122/70 H 96 02/07/18 09:52 02/07/18 11:06 02/07/18 11:06 02/07/18 09:52 02/07/18 09:52 Oxygen Flow Rate (L/min) 2 Oxygen Delivery Method Nasal Cannula Weight: 124 kg Body Mass Index (BMI) 45.9 Intake and Output for Last 24 Hours 02/05/18 02/06/18 02/07/18 23:59 23:59 23:59 Intake Total 1055 / 1055 40 / 40 Output Total Balance 1055 / 1055 40 / 40 Microbiology Past 72 Hours 02/04/18 07:45 Influenza Types A,B Direct FA (AYUSH) - Final Mucosa - Nose 02/04/18 07:00 Streptococcus pneumoniae Antigen (M - Final Urine, Clean Catch 02/04/18 07:00 Legionella Antigen - Final Urine, Clean Catch Laboratory Tests Past 24 Hrs 02/07/18 02/07/18 02/07/18 05:57 05:57 05:57 WBC 15.8 H RBC 3.49 L Hgb 10.5 L Hct 32.5 L MCV 93.1 MCH 30.1 MCHC 32.3 RDW 14.5 RDW Differential 49.0 H Plt Count 163 MPV 10.1 PT 32.2 H INR 3.1 Sodium 134 L Potassium 5.0 Chloride 103 Carbon Dioxide 22.0 Anion Gap 9 BUN 67 H Creatinine 2.17 H Estim Creat Clear Calc 25.19 Est GFR (MDRD) Af Amer 38 L Est GFR (MDRD) Non-Af 32 L BUN/Creatinine Ratio 30.9 H Glucose 288 H Calcium 8.8 Magnesium 2.0 POC Glucose 02/07/18 02/06/18 02/06/18 06:43 21:04 16:46 POC Glucose 302 H 398 H 377 H 02/06/18 11:14 POC Glucose 400 H Assessment/Plan Active and Suspected Problems Community acquired pneumonia (Acute) Left bundle branch block (Acute) Hypoxemia (Acute) Chronic kidney disease (Acute) 1. Acute kidney injury on chronic kidney disease stage 3b-4. 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 DARRYL is most probably prerenal from diuresis in setting of probably pulmonary HTN Cr is slightly better at 2.1 which is his baseline Continue holding lasix since the patient does not seem to have pulmonary congestion Avoid ACEI/ARB Recheck renal panel in am. Monitor volume status. 2. Hypomagnesemia. replaced 3. T2DM. Glycemic control per hospital medicine service. 4. respiratory distress due to CAP/AUTUMN. Not related to vascular congestion or pulmonary edema. will continue holding lasix Will evaluate the volume status and the need of lasix tariq On Levaquin. Dose is OK for the current CrCl. Will continue to follow Maite Javier MD [phone]
[2018-02-07 11:35] LABS: Bedside Glucose 310 mg/dL (70-110)
[2018-02-07 16:31] LABS: Bedside Glucose 228 mg/dL (70-110)
[2018-02-07] MEDS: Insulin NPH Human 100 UNITS/ML PEN 40 UNITS SC (17:08)
[2018-02-07] MEDS: Atorvastatin Calcium 40 MG Tablet PO (21:10)
[2018-02-07 21:56] LABS: Bedside Glucose 210 mg/dL (70-110)
[2018-02-08] VITALS (10 sets, daily range): BP systolic 120; BP diastolic 67–73; PULSE 80–89; RESP 18–24; TEMP 36.6–36.9; O2SAT 90–94
[2018-02-08] MEDS: Ipratropium/Albuterol Sulfate 3 ML AMPUL.NEB INHALATION ×3 (03:10→11:10)
[2018-02-08 06:28] LABS: Hematocrit 32.9 % (40-54); Hemoglobin 10.7 g/dl (13.0-16.5); Mean Corp Hgb Conc 32.5 g/gl (32-36); Mean Corpuscular Hgb 30.8 pg (27.0-32.0); Mean Corpuscular Volume 94.8 fL (80-94); Mean Platelet Vol. 10.3 fl (6.2-12.0); Platelet Count 157 K/mm3 (150-450); RBC Distribution Width CV 14.2 % (11.6-14.6); RBC Distribution Width SD 46.6 fl (35.1-43.9); Red Blood Count 3.47 M/mm3 (4.6-6.2)
[2018-02-08 06:30] LABS: Prothrombin Time (Protime)PT. 41.3 SECONDS (11.7-14.9)
[2018-02-08 06:33] LABS: Scan Indicated on CBC? Y/N NO
[2018-02-08 06:37] LABS: International Normalized Ratio 4.3
[2018-02-08 06:44] LABS: Anion Gap 9 (5-15); BUN 69 mg/dL (7-18); BUN/Creat Ratio 34.5 RATIO (10-20); Calcium,Total 8.8 mg/dL (8.5-10.1); Chloride 108 mmol/L (98-107); EST Glomerular Filtration Rate 35 mL/min (>60); Est Glom Filt Rate - Afr Amer 42 mL/min (>60); Estimated Creatinine Clearance 27.33 ml/min; Glucose 130 mg/dL (74-106); Potassium 4.6 mmol/L (3.5-5.1); Sodium Level 140 mmol/L (136-145)
[2018-02-08] MEDS: levoFLOXacin 250 MG Tablet PO (06:50)
[2018-02-08 06:55] LABS: Bedside Glucose 138 mg/dL (70-110)
[2018-02-08] MEDS: Insulin NPH Human 100 UNITS/ML PEN 40 UNITS SC (08:45)
[2018-02-08] MEDS: Allopurinol 300 MG Tablet 150 MG PO (08:47)
[2018-02-08] MEDS: Multivitamins,Therapeutic Tablet 1 TABLET PO (08:47)
[2018-02-08] MEDS: Aspirin E.C. 81 MG Tablet PO (08:47)
[2018-02-08] MEDS: BENZOCAINE/MENTHOL 1 LOZENGE MUCOUS MEM (10:08)
[2018-02-08] MEDS: Iron Polysaccharide Complex 150 MG CAPSULE PO (10:09)
[2018-02-08] MEDS: Isosorbide Mononitrate 60 MG Tablet PO (10:09)
[2018-02-08] MEDS: levETIRAcetam 500 MG Tablet PO (10:09)
[2018-02-08] MEDS: guaiFENesin 1,200 MG Tablet 1200 MG PO (10:10)
[2018-02-08] MEDS: Metoprolol Tartrate 25 MG Tablet 12.5 MG PO (10:10)
[2018-02-08] MEDS: Sertraline 50 MG Tablet 25 MG PO (10:11)
--- NOTE | 2018-02-08 10:45 | CASEMGMT ---
CHART REVIEW: ALAN WALTER reviewed EMR for transition planning and care coordination. ALAN WALTER notes patient continues to require supplemental oxygen, and patient was not receiving oxygen services prior to admission. Per ALAN WALTER, Rose Tobias, documentation, patient has had oxygen in the past. The patient does have his home B[facility] here at [facility], and has a 2 LPM bleed in as well as 2 liters supplemental PRN ATC. The patient has required SNF placement and C services in the past; PT/OT was ordered 02/07/18, but PT/OT has not documented evaluation as of 02/08/18. The patient's first choice for disposition is home with family. ALAN WALTER will continue to follow for home-going and care coordination needs. Disposition Plan: Home; needs TBDILAN Castillo, RN-BC, CCM
--- NOTE | 2018-02-08 11:21 | PCM.PN.REN ---
Patient Problems: Active and Suspected Problems Left bundle branch block (Acute) Hypoxemia (Acute) Chronic kidney disease (Acute) Subjective: Patient's breathing is better. off NC. No CP. No SOB this morning No nausea No vomiting - Physical Exam General: Alert, Oriented x3 HEENT: Atraumatic Oral: Moist Mucosa Neck: Supple, - - thick neck Lungs: Diminished, Rhonchi, Wheezes Cardiovascular: Regular rate, Regular Rhythm, Normal S1, Normal S2 Abdomen: Bowel Sounds Present, Soft, Non Tender Extremities: No clubbing, No cyanosis, - - +1 edema Skin: No rashes Musculoskeletal: No Tenderness to Palpation of Joints or Extremities Lymphatic: No Cervical, Supraclavicular, or Inguinal Adenopathy Neurological: Cranial nerves II-XII grossly intact, Neuro grossly intact Psych/Mental Status: Normal Affect Vital Signs Temp Pulse Resp BP Pulse Ox 97.9 F 89 21 H 120/73 90 02/08/18 08:42 02/08/18 11:14 02/08/18 11:14 02/08/18 08:42 02/08/18 08:53 Oxygen Flow Rate (L/min) 2 Oxygen Delivery Method Room Air Weight: 126.5 kg Body Mass Index (BMI) 45.9 Intake and Output for Last 24 Hours 02/06/18 02/07/18 02/08/18 23:59 23:59 23:59 Intake Total 1055 / 1055 980 / 980 Balance 1055 / 1055 980 / 980 Laboratory Tests Past 24 Hrs 02/08/18 02/08/18 02/08/18 05:40 05:40 05:40 WBC 11.0 RBC 3.47 L Hgb 10.7 L Hct 32.9 L MCV 94.8 H MCH 30.8 MCHC 32.5 RDW 14.2 RDW Differential 46.6 H Plt Count 157 MPV 10.3 PT 41.3 H INR 4.3 H* Sodium 140 Potassium 4.6 Chloride 108 H Carbon Dioxide 23.0 Anion Gap 9 BUN 69 H Creatinine 2.00 H Estim Creat Clear Calc 27.33 Est GFR (MDRD) Af Amer 42 L Est GFR (MDRD) Non-Af 35 L BUN/Creatinine Ratio 34.5 H Glucose 130 H Calcium 8.8 POC Glucose 02/08/18 02/07/18 02/07/18 06:46 21:09 16:15 POC Glucose 138 H 210 H 228 H 02/07/18 11:27 POC Glucose 310 H Assessment/Plan Active and Suspected Problems Left bundle branch block (Acute) Hypoxemia (Acute) Chronic kidney disease (Acute) 1. Acute kidney injury on chronic kidney disease stage 3b-4. 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 DARRYL is most probably prerenal from diuresis in setting of probably pulmonary HTN Cr is trending down slowly. Last Cr trend 2.1>2.0 mg/dL Lasix can be resumed with 40 mg PO daily Avoid ACEI/ARB Recheck renal panel in am. Monitor volume status. 2. Hypomagnesemia. replaced 3. T2DM. Glycemic control per hospital medicine service. 4. respiratory distress due to CAP/AUTUMN. Not related to vascular congestion or pulmonary edema. Improved .continue pneumonia treatment as per the primary service Okay to discharge patient from nephrology stand point. please discharge him with lasix 40 mg PO daily Patient is to follow with his manager field service in [place] D/W Dr. Cy Javier MD [phone]
--- NOTE | 2018-02-08 11:25 | PN.RENAL_ITS ---
Patient Problems: Active and Suspected Problems Left bundle branch block (Acute) Hypoxemia (Acute) Chronic kidney disease (Acute) Subjective: Patient's breathing is better. off NC. No CP. No SOB this morning No nausea No vomiting - Physical Exam General: Alert, Oriented x3 HEENT: Atraumatic Oral: Moist Mucosa Neck: Supple, - - thick neck Lungs: Diminished, Rhonchi, Wheezes Cardiovascular: Regular rate, Regular Rhythm, Normal S1, Normal S2 Abdomen: Bowel Sounds Present, Soft, Non Tender Extremities: No clubbing, No cyanosis, - - +1 edema Skin: No rashes Musculoskeletal: No Tenderness to Palpation of Joints or Extremities Lymphatic: No Cervical, Supraclavicular, or Inguinal Adenopathy Neurological: Cranial nerves II-XII grossly intact, Neuro grossly intact Psych/Mental Status: Normal Affect Vital Signs Temp Pulse Resp BP Pulse Ox 97.9 F 89 21 H 120/73 90 02/08/18 08:42 02/08/18 11:14 02/08/18 11:14 02/08/18 08:42 02/08/18 08:53 Oxygen Flow Rate (L/min) 2 Oxygen Delivery Method Room Air Weight: 126.5 kg Body Mass Index (BMI) 45.9 Intake and Output for Last 24 Hours 02/06/18 02/07/18 02/08/18 23:59 23:59 23:59 Intake Total 1055 / 1055 980 / 980 Balance 1055 / 1055 980 / 980 Laboratory Tests Past 24 Hrs 02/08/18 02/08/18 02/08/18 05:40 05:40 05:40 WBC 11.0 RBC 3.47 L Hgb 10.7 L Hct 32.9 L MCV 94.8 H MCH 30.8 MCHC 32.5 RDW 14.2 RDW Differential 46.6 H Plt Count 157 MPV 10.3 PT 41.3 H INR 4.3 H* Sodium 140 Potassium 4.6 Chloride 108 H Carbon Dioxide 23.0 Anion Gap 9 BUN 69 H Creatinine 2.00 H Estim Creat Clear Calc 27.33 Est GFR (MDRD) Af Amer 42 L Est GFR (MDRD) Non-Af 35 L BUN/Creatinine Ratio 34.5 H Glucose 130 H Calcium 8.8 POC Glucose 02/08/18 02/07/18 02/07/18 06:46 21:09 16:15 POC Glucose 138 H 210 H 228 H 02/07/18 11:27 POC Glucose 310 H Assessment/Plan Active and Suspected Problems Left bundle branch block (Acute) Hypoxemia (Acute) Chronic kidney disease (Acute) 1. Acute kidney injury on chronic kidney disease stage 3b-4. 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 DARRYL is most probably prerenal from diuresis in setting of probably pulmonary HTN Cr is trending down slowly. Last Cr trend 2.1>2.0 mg/dL Lasix can be resumed with 40 mg PO daily Avoid ACEI/ARB Recheck renal panel in am. Monitor volume status. 2. Hypomagnesemia. replaced 3. T2DM. Glycemic control per hospital medicine service. 4. respiratory distress due to CAP/AUTUMN. Not related to vascular congestion or pulmonary edema. Improved .continue pneumonia treatment as per the primary service Okay to discharge patient from nephrology stand point. 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 Cy Javier MD [phone]
--- NOTE | 2018-02-08 11:26 | CASEMGMT ---
ALAN WALTER notified by physician, anticipate discharge today. ALAN WALTER reviewed PT/OT evaluation. Per PT/OT, patient does not demonstrate a need for HHC. ALAN WALTER met with patient to discuss home health care and oxygen. The patient denies need for HHC and states I really don't need oxygen. ALAN WALTER educated patient re: home oxygen qualification. If the patient does qualify, he would like to use [facility]. ALAN WALTER handoff provided to Bina Kwong, ALAN WALTER, PCU. Disposition: Home; oxygen needs TBDMyra Burris, BSN, RN-BC, CCM
--- NOTE | 2018-02-08 11:34 | PCM.DC ---
- Discharge Diagnoses Current Active Problems: Current Active and Chronic Problems Left bundle branch block (Acute) Hypoxemia (Acute) Chronic kidney disease (Acute) You will use the following diet at home:: Fluid restricted (specify 2000 mls, 1500 mls) - 1999 Your food should be the consistency of: Regular Allergies/Adverse Reactions: Allergies Penicillins [PCN] Allergy (Verified 02/04/18 04:22) Swelling Medications to take at Discharge Aspirin [Adult Low Dose Aspirin EC] 81 mg PO DAILY 07/11/16 Atorvastatin Calcium [Lipitor] 40 mg PO QHS 07/11/16 Metoprolol Tartrate [Lopressor (beta josey)] 12.5 mg PO BID 07/11/16 Multivitamin [Daily Multiple Vitamin] 1 each PO DAILY 07/11/16 Pantoprazole Sodium [Protonix] 20 mg PO DAILY 07/11/16 Insulin Regular, Human [Novolin R] 25 unit SC BID 07/24/16 Insulin NPH Human Isophane [Novolin N] 25 units SQ DAILY 08/10/16 Allopurinol [Zyloprim] 150 mg PO DAILYCM #15 tablet 08/27/16 Levetiracetam [Keppra] 500 mg PO BID #60 tablet 08/27/16 Warfarin [Coumadin] 2.5 mg PO DAILY 10/06/16 Cholecalciferol (VIT D3) [Vitamin D3] 1,000 unit PO DAILY 10/26/16 Isosorbide Mononitrate [Isosorbide Mononitrate ER] 60 mg PO DAILY 01/10/18 Sertraline HCl [Zoloft] 25 mg PO DAILY 01/10/18 Iron Polysaccharide Complex [Ferrex 150] 150 mg PO QODAY 02/04/18 Albuterol Inhaler [Ventolin Hfa] 2 puff INHALATION Q4H PRN PRN #1 inhaler 02/08/18 Doxycycline 100 mg PO BID #14 cap 02/08/18 Furosemide 40 mg PO DAILY #30 tab 02/08/18 Guaifenesin [Mucinex] 1,200 mg PO BID #14 tab 02/08/18 Prednisone 20 mg PO BID #10 tab 02/08/18 The following prescriptions were given: Albuterol Inhaler [Ventolin Hfa] 2 puff INHALATION Q4H PRN PRN #1 inhaler PRN Reason: Dyspnea/Wheezing/Sob Doxycycline 100 mg PO BID #14 cap Furosemide 40 mg PO DAILY #30 tab Guaifenesin [Mucinex] 1,200 mg PO BID #14 tab Prednisone 20 mg PO BID #10 tab Primary Care Physician: Romaine Velazquez MD [Primary Care Provider] - Please follow up with your Primary Care Physician in: IN 2-3 DAYS FOR REPEAT INR CHECK Please Follow Up With: Christian Shook MD When: IN 2-4 WEEKS Please Follow Up With: Maite Javier MD When: IN 1-2 WEEKS Proposed Discharge Date: 02/08/18
--- NOTE | 2018-02-08 11:39 | PCM.DC.SUM ---
Discharge Date and Diagnosis Date of Admission: 02/04/18 Date of Discharge: 02/08/18 - Primary Discharge Diagnosis Active and Suspected Problems Hypoxemia (Acute) - Secondary Discharge Diagnosis Chronic Problems Left bundle branch block (Chronic) Chronic kidney disease (Chronic) Encounter for venous access device care (Chronic) Gout (Chronic) Sleep apnea (Chronic) Cholecystitis (Chronic) Seizure (Chronic) Hypomagnesemia (Chronic) DM type 2 (diabetes mellitus, type 2) (Chronic) Venous insufficiency of both lower extremities (Chronic) Hyperlipemia (Chronic) Aortic valve replaced (Chronic) January 2016 at [facility], pig valve Chronic renal failure, stage 3 (moderate) (Chronic) Morbid obesity with BMI of 45.0-49.9, adult (Chronic) Anemia (Chronic) CAD (coronary artery disease) (Chronic) Hx of CABG (Chronic) CABG in 1993 and 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 No demonstrated acute cardiopulmonary process. Electronically Signed: Bela Garcia MD at 5:48 EST Tel , Service support , Chest X-Ray 02/05/18 05:55 IMPRESSION: Degenerative changes, as described above. No demonstrated acute cardiopulmonary process. Electronically Signed: Bela Garcia MD at 6:28 EDT Tel , Service support , Operations: None Summary of Care Provided: Patient is a 77-year-old gentleman with multiple comorbidities including CAD status post CABG obstructive sleep apnea on CPAP who presents with progressive shortness of breath in addition to a productive cough and assessment of acute hypoxic respiratory failure secondary to combination of COPD exacerbation as well as acute on chronic diastolic heart failure was made admitted to a monitored bed for subsequent management 1. Acute hypoxic respiratory failure secondary to combination of COPD and acute on chronic diastolic heart failure patient has been placed on supplemental oxygen titrated to keep oxygen saturation greater than 90 patient was assessed for home oxygen need prior to discharge 2. Acute COPD exacerbation management systemic steroid, (dose adjusted), p.o. Levaquin and bronchodilator treatment in addition to supplemental oxygen 2. Acute on chronic diastolic heart failure echo ordered Normal LV size. Moderate concentric left ventricular hypertrophy. Left ventricular systolic function is normal. The estimated ejection fraction is 60 %. Stable appearing bioprosthetic aortic valve apparatus. Mean aortic valve gradient 9 mmHg. Was discharged home on 40 mg of Lasix 4. CAD status post CABG EKG on admission demonstrated left bundle branch block which is old troponin 0 0.02 5. Obesity hypoventilation syndrome 6. Obstructive sleep apnea patient is on CPAP at night 7. Diabetes mellitus type II with complications including chronic kidney disease stage III: Patient is on insulin did continue in addition to Accu-Cheks before meals and at bedtime with sliding scale coverage 8. History of aortic valve replacement patient is on systemic anticoagulation with Coumadin with therapeutic INR not 9. Seizure disorder patient is on Keppra did continue 10. Morbid obesity with BMI of 46 weight loss recommended; patient was also instructed to follow-up with PCP for possible referral for gastric bypass surgery 11. Chronic kidney disease stage III patient kidney function appears to be close to his baseline. Patient was seen in consultation by nephrology notes and recommendations reviewed 12. Degenerative joint disease 13. DVT prophylaxis on Coumadin no need for additional measures 14. DARRYL ruled out 15. Community-acquired pneumonia ruled out 16. Physical deconditioning requested for PT OT eval and nephrology social worker to assist with discharge planning Discharge Diet: 8 Cup Fluid Restriciton Home Medications: Medications to take at Discharge Aspirin [Adult Low Dose Aspirin EC] 81 mg PO DAILY 07/11/16 Atorvastatin Calcium [Lipitor] 40 mg PO QHS 07/11/16 Metoprolol Tartrate [Lopressor (beta karyn)] 12.5 mg PO BID 07/11/16 Multivitamin [Daily Multiple Vitamin] 1 each PO DAILY 07/11/16 Pantoprazole Sodium [Protonix] 20 mg PO DAILY 07/11/16 Insulin Regular, Human [Novolin R] 25 unit SC BID 07/24/16 Insulin NPH Human Isophane [Novolin N] 25 units SQ DAILY 08/10/16 Allopurinol [Zyloprim] 150 mg PO DAILYCM #15 tablet 08/27/16 Levetiracetam [Keppra] 500 mg PO BID #60 tablet 08/27/16 Warfarin [Coumadin] 2.5 mg PO DAILY 10/06/16 Cholecalciferol (VIT D3) [Vitamin D3] 1,000 unit PO DAILY 10/26/16 Isosorbide Mononitrate [Isosorbide Mononitrate ER] 60 mg PO DAILY 01/10/18 Sertraline HCl [Zoloft] 25 mg PO DAILY 01/10/18 Iron Polysaccharide Complex [Ferrex 150] 150 mg PO QODAY 02/04/18 Albuterol Inhaler [Ventolin Hfa] 2 puff INHALATION Q4H PRN PRN #1 inhaler 02/08/18 Doxycycline 100 mg PO BID #14 cap 02/08/18 Furosemide 40 mg PO DAILY #30 tab 02/08/18 Guaifenesin [Mucinex] 1,200 mg PO BID #14 tab 02/08/18 Prednisone 20 mg PO BID #10 tab 02/08/18 Following Prescrptions Were Given to Patient: Albuterol Inhaler [Ventolin Hfa] 2 puff INHALATION Q4H PRN PRN #1 inhaler PRN Reason: Dyspnea/Wheezing/Sob Doxycycline 100 mg PO BID #14 cap Furosemide 40 mg PO DAILY #30 tab Guaifenesin [Mucinex] 1,200 mg PO BID #14 tab Prednisone 20 mg PO BID #10 tab Primary Care Physician: Romaine Velazquez MD [Primary Care Provider] - Please follow up with your Primary Care Physician in: IN 2-3 DAYS FOR REPEAT INR CHECK Please Follow Up With: Christian Shook MD When: IN 2-4 WEEKS Please Follow Up With: Maite Javier MD When: IN 1-2 WEEKS Disposition: Home Minutes spent on discharge:: 35 Patient Condition:: Stable Meaningful Use Info Meaningful Use Diagnoses (Choose all that apply): CHF - AMI Reason Beta Karyn not ordered:: Worsening renal disease - CHF DIONNA/ARB ordered at discharge?: No Reason DIONNA/ARB not ordered?: Worsening renal disease Documented LVEF (%): 60 Code Visit Inpatient E&M: 64789 Disch Hosp
[2018-02-08 11:56] LABS: Bedside Glucose 123 mg/dL (70-110)
== END 2018-02-08 15:09 | disposition home or self-care (01) | DRG 291 ==
LOC: ED 05:49 → PCU 05:57
PROVIDERS: Internal Medicine; Internal Medicine Nephrology; Admitting Provider Internal Medicine; Emergency Provider Emergency Medicine; Family Provider Family Medicine; PCP Family Medicine; Visit Provider Internal Medicine
DX: I13.0 Hypertensive heart and chronic kidney disease with heart failure and stage 1 through stage 4 chronic kidney disease, or unspecified chronic kidney disease (principal); J96.01 Acute respiratory failure with hypoxia; I50.33 Acute on chronic diastolic (congestive) heart failure; J44.1 Chronic obstructive pulmonary disease with (acute) exacerbation; E66.2 Morbid (severe) obesity with alveolar hypoventilation; Z68.42 Body mass index [BMI] 45.0-49.9, adult; E11.22 Type 2 diabetes mellitus with diabetic chronic kidney disease; D64.9 Anemia, unspecified; G40.909 Epilepsy, unspecified, not intractable, without status epilepticus; I44.7 Left bundle-branch block, unspecified; E83.42 Hypomagnesemia; G47.33 Obstructive sleep apnea (adult) (pediatric); N18.3 Chronic kidney disease, stage 3 (moderate); I25.10 Atherosclerotic heart disease of native coronary artery without angina pectoris; I87.2 Venous insufficiency (chronic) (peripheral); E78.5 Hyperlipidemia, unspecified; Z95.1 Presence of aortocoronary bypass graft; Z95.3 Presence of xenogenic heart valve; M10.9 Gout, unspecified; M19.90 Unspecified osteoarthritis, unspecified site; Z79.4 Long term (current) use of insulin; Z79.899 Other long term (current) drug therapy; Z87.891 Personal history of nicotine dependence
CPT/HCPCS: 36415; 71045; 80048; 80053; 80069; 81002; 82962; 83605; 83735; 84484; 85025; 85027; 85610; 85730; 87040; 87070; 87205; 87449; 87804; 93005; 93306; 94640; 94667; 94668; 97162; 97166; 99285; J7040; Q9957; A4216; J1940

== ENCOUNTER → 2018-03-27 12:56 | Outpatient (CLI) | payer MEDICARE, OTHER, SELFPAY ==
[2018-03-27 14:11] LABS: Protein, Urine (Random) 28.4 mg/dL (<11.9); Protein:Creat Ratio 508 mg/g CRE (0-200)
[2018-03-27 14:17] LABS: Hematocrit 33.2 % (40-54); Hemoglobin 10.6 g/dl (13.0-16.5); Mean Corp Hgb Conc 31.9 g/gl (32-36); Mean Corpuscular Hgb 30.4 pg (27.0-32.0); Mean Corpuscular Volume 95.1 fL (80-94); Mean Platelet Vol. 10.2 fl (6.2-12.0); Platelet Count 151 K/mm3 (150-450); RBC Distribution Width CV 14.7 % (11.6-14.6); RBC Distribution Width SD 48.2 fl (35.1-43.9); Red Blood Count 3.49 M/mm3 (4.6-6.2); White Blood Count 9.2 K/mm3 (4.4-11.0)
[2018-03-27 14:20] LABS: Scan Indicated on CBC? Y/N NO
[2018-03-27 14:29] LABS: Albumin, Serum 3.2 g/dL (3.2-5.0); BUN 31 mg/dL (7-18); BUN/Creat Ratio 17.1 RATIO (10-20); Calcium,Total 8.6 mg/dL (8.5-10.1); Chloride 107 mmol/L (98-107); Creatinine, Serum 1.81 mg/dL (0.70-1.30); EST Glomerular Filtration Rate 39 mL/min (>60); Est Glom Filt Rate - Afr Amer 47 mL/min (>60); Ferritin 381 ng/mL (26-388); Glucose 157 mg/dL (74-106); Iron 63 ug/dL (65-175); Iron Binding Capacity,Total 194 ug/dL (250-450); PERCENT IRON SATURATION 32.5 % (15.0-55.0); PTHIN 85.5 pg/mL (18.4-80.1); Phosphorus 2.8 mg/dL (2.5-4.9); Potassium 4.2 mmol/L (3.5-5.1); Sodium Level 140 mmol/L (136-145)
== END ==
PROVIDERS: Family Provider Family Medicine; PCP Family Medicine; Visit Provider Internal Medicine Nephrology
DX: I12.9 Hypertensive chronic kidney disease with stage 1 through stage 4 chronic kidney disease, or unspecified chronic kidney disease (principal); N18.3 Chronic kidney disease, stage 3 (moderate); D63.1 Anemia in chronic kidney disease
CPT/HCPCS: 36415; 80069; 82570; 82728; 83540; 83550; 83970; 84156; 85027

== ENCOUNTER → 2018-06-01 12:40 | Outpatient (CLI) | payer MEDICARE, OTHER, SELFPAY ==
[2018-06-01 14:00] LABS: Hematocrit 34.3 % (40-54); Hemoglobin 11.1 g/dl (13.0-16.5); Mean Corp Hgb Conc 32.4 g/gl (32-36); Mean Corpuscular Hgb 30.4 pg (27.0-32.0); Mean Platelet Vol. 10.4 fl (6.2-12.0); Platelet Count 173 K/mm3 (150-450); RBC Distribution Width CV 14.3 % (11.6-14.6); RBC Distribution Width SD 46.5 fl (35.1-43.9); Red Blood Count 3.65 M/mm3 (4.6-6.2); White Blood Count 10.6 K/mm3 (4.4-11.0)
[2018-06-01 14:09] LABS: Scan Indicated on CBC? Y/N NO
[2018-06-01 14:11] LABS: BNP,B-Type NATRIURETIC PEPTIDE 197.4 pg/mL (0-100); Hemoglobin A1c 6.7 % (4.2-6.3)
[2018-06-01 14:16] LABS: Anion Gap 9 (5-15); BUN 38 mg/dL (7-18); BUN/Creat Ratio 20.3 RATIO (10-20); Calcium,Total 8.8 mg/dL (8.5-10.1); Chloride 108 mmol/L (98-107); Creatinine, Serum 1.87 mg/dL (0.70-1.30); EST Glomerular Filtration Rate 37 mL/min (>60); Est Glom Filt Rate - Afr Amer 45 mL/min (>60); Glucose 131 mg/dL (74-106); Potassium 4.4 mmol/L (3.5-5.1); Sodium Level 142 mmol/L (136-145); Thyroid Stim Hormone (TSH) 2.78 uIU/mL (0.358-3.74); Uric Acid 6.4 mg/dL (3.5-7.2)
== END ==
PROVIDERS: Family Provider Family Medicine; PCP Family Medicine; Visit Provider Internal Medicine
DX: I50.9 Heart failure, unspecified (principal); E11.9 Type 2 diabetes mellitus without complications
CPT/HCPCS: 36415; 80048; 83036; 83880; 84443; 84550; 85027

== ENCOUNTER → 2018-10-02 12:27 | Outpatient (CLI) | payer MEDICARE, OTHER, SELFPAY ==
[2018-10-02 14:08] LABS: Hematocrit 36.2 % (40-54); Hemoglobin 11.7 g/dl (13.0-16.5); Mean Corp Hgb Conc 32.3 g/gl (32-36); Mean Corpuscular Hgb 30.8 pg (27.0-32.0); Mean Corpuscular Volume 95.3 fL (80-94); Mean Platelet Vol. 10.6 fl (6.2-12.0); Platelet Count 169 K/mm3 (150-450); RBC Distribution Width CV 13.8 % (11.6-14.6); RBC Distribution Width SD 45.3 fl (35.1-43.9); Scan Indicated on CBC? Y/N NO; White Blood Count 9.6 K/mm3 (4.4-11.0)
[2018-10-02 14:10] LABS: Protein, Urine (Random) 79.3 mg/dL (<11.9); Protein:Creat Ratio 1452 mg/g CRE (0-200)
[2018-10-02 14:18] LABS: PTHIN 91.6 pg/mL (18.4-80.1)
[2018-10-02 14:19] LABS: Albumin, Serum 3.3 g/dL (3.2-5.0); BUN 40 mg/dL (7-18); BUN/Creat Ratio 20.4 RATIO (10-20); Calcium,Total 8.5 mg/dL (8.5-10.1); Chloride 104 mmol/L (98-107); Creatinine, Serum 1.96 mg/dL (0.70-1.30); EST Glomerular Filtration Rate 35 mL/min (>60); Est Glom Filt Rate - Afr Amer 43 mL/min (>60); Ferritin 326 ng/mL (26-388); Glucose 261 mg/dL (74-106); Iron 60 ug/dL (65-175); Iron Binding Capacity,Total 198 ug/dL (250-450); PERCENT IRON SATURATION 30.3 % (15.0-55.0); Phosphorus 2.4 mg/dL (2.5-4.9); Potassium 4.9 mmol/L (3.5-5.1); Sodium Level 138 mmol/L (136-145)
== END ==
PROVIDERS: Family Provider Family Medicine; PCP Family Medicine; Referring Provider Internal Medicine Nephrology; Visit Provider Internal Medicine Nephrology
DX: I12.9 Hypertensive chronic kidney disease with stage 1 through stage 4 chronic kidney disease, or unspecified chronic kidney disease (principal); N18.3 Chronic kidney disease, stage 3 (moderate); D63.1 Anemia in chronic kidney disease
CPT/HCPCS: 36415; 80069; 82570; 82728; 83540; 83550; 83970; 84156; 84550; 85027

== ENCOUNTER → 2018-10-26 12:06 | Outpatient (CLI) | payer MEDICARE, OTHER, SELFPAY ==
[2018-10-24 14:15] VITALS: BMI 47.0
[2018-10-26 14:05] LABS: Hematocrit 35.5 % (40-54); Hemoglobin 11.4 g/dl (13.0-16.5); Mean Corp Hgb Conc 32.1 g/gl (32-36); Mean Corpuscular Hgb 30.2 pg (27.0-32.0); Mean Corpuscular Volume 93.9 fL (80-94); Mean Platelet Vol. 10.1 fl (6.2-12.0); Platelet Count 171 K/mm3 (150-450); RBC Distribution Width CV 14.2 % (11.6-14.6); RBC Distribution Width SD 48.5 fl (35.1-43.9); Red Blood Count 3.78 M/mm3 (4.6-6.2); White Blood Count 9.1 K/mm3 (4.4-11.0)
[2018-10-26 14:08] LABS: Scan Indicated on CBC? Y/N NO
[2018-10-26 14:26] LABS: ALB/GLOB Ratio 0.8 RATIO (0.9-2.4); AST(SGOT) 16 U/L (15-37); Alanine Aminotransfer ALT/SGPT 21 U/L (16-61); Albumin, Serum 3.2 g/dL (3.2-5.0); Alkaline Phosphatase 103 U/L (45-117); Anion Gap 5 (5-15); BUN 42 mg/dL (7-18); BUN/Creat Ratio 25.1 RATIO (10-20); Calcium,Total 8.4 mg/dL (8.5-10.1); Chloride 111 mmol/L (98-107); Cholesterol 112 mg/dL (200); Creatinine, Serum 1.67 mg/dL (0.70-1.30); EST Glomerular Filtration Rate 43 mL/min (>60); Est Glom Filt Rate - Afr Amer 52 mL/min (>60); Globulin 4.2 g/dL (2.2-4.2); Glucose 106 mg/dL (74-106); Hemoglobin A1c 7.5 % (4.2-6.3); High Density Lipoprotein 29 mg/dL; Protein, Total 7.4 g/dL (6.4-8.2); Sodium Level 140 mmol/L (136-145); Thyroid Stim Hormone (TSH) 2.42 uIU/mL (0.358-3.74); Triglycerides 132 mg/dL; Very Low Density Lipoprotein 26 mg/dL (5-40)
--- OUTSIDE RECORDS SUMMARY | 2018-12-21 15:21 | XMS RPT_ITS ---
:1940 Author Organization OHIP Support Name Relationship Address Phone FRAME, VAHE Unavailable [address] + [place] [address] KAUF, ALIRIO Unavailable [address] + [place] [address] R Unavailable Unavailable Unavailable FRAME, VAHE Unavailable [address] + [place] [address] KAUF, ALIRIO Unavailable [address] + [place] [address] R Unavailable Unavailable Unavailable KAUF, ALIRIO Unavailable [address] + [place] [address] KAUF, ALIRIO Unavailable [address] + [place] [address] FRAME, VAHE Unavailable [address] + [place] [address] KAUF, ALIRIO Unavailable [address] + [place] [address] R Unavailable Unavailable Unavailable FRAME, VAHE Unavailable [address] + [place] [address] KAUF, ALIRIO Unavailable [address] + [place] [address] R Unavailable Unavailable Unavailable FRAME, VAHE Unavailable [address] + [place] [address] KAUF, ALIRIO Unavailable [address] + [place] [address] R Unavailable Unavailable Unavailable FRAME, VAHE Unavailable [address] + [place] [address] KAUF, ALIRIO Unavailable [address] + [place] [address] R Unavailable Unavailable Unavailable FRAME, VAHE Unavailable [address] + [place] [address] R Unavailable Unavailable Unavailable R Unavailable Unavailable Unavailable FRAME, VAHE Unavailable [address] + [place] [address] KAUF, ALIRIO Unavailable [address] + [place] [address] R Unavailable Unavailable Unavailable KAUF, ALIRIO Unavailable [address] + [place] [address] KAUF, ALIRIO Unavailable [address] + [place] [address] FRAME, VAHE Unavailable [address] + [place] [address] KAUF, ALIRIO Unavailable [address] + [place] [address] R Unavailable Unavailable Unavailable FRAME, VAHE Unavailable [address] + [place] [address] KAUF, ALIRIO Unavailable [address] + [place] [address] R Unavailable Unavailable Unavailable FRAME, VAHE Unavailable [address] + [place] [address] KAUF, ALIRIO Unavailable [address] + [place] [address] R Unavailable Unavailable Unavailable FRAME, VAHE Unavailable [address] + [place] [address] KAUF, ALIRIO Unavailable [address] + [place] [address] R Unavailable Unavailable Unavailable FRAME, VAHE Unavailable [address] + [place] [address] KAUF, ALIRIO Unavailable [address] + [place] [address] R Unavailable Unavailable Unavailable FRAME, VAHE Unavailable [address] + [place] [address] R Unavailable Unavailable Unavailable FRAME, VAHE Unavailable [address] + [place] [address] KAUF, ALIRIO Unavailable [address] + [place] [address] R Unavailable Unavailable Unavailable FRAME, VAHE Unavailable [address] + [place] [address] JEAN CLAUDE ALIRIO Unavailable [address] + [place] [address] R Unavailable Unavailable Unavailable FRAME, VAHE Unavailable [address] + [place] [address] KARAFI, ALIRIO Unavailable [address] + [place] [address] R Unavailable Unavailable Unavailable FRAME, VAHE Unavailable [address] + [place] [address] KARAFI, ALIRIO Unavailable [address] + [place] [address] R Unavailable Unavailable Unavailable Care Team Providers Name Role Phone ALY BREEN, DR. JENNIFER Tobias Attending Unavailable ALY BREEN, DR. JENNIFER Tobias Primary Care Unavailable ALY BREEN, DR. JENNIFER Tobias Attending Unavailable ALY BREEN, DR. JENNIFER Tobias Primary Care Unavailable Chel Kaur Attending Unavailable JENNIFER VELAZQUEZ Primary Care Unavailable JENNIFER VELAZQUEZ Attending Unavailable JENNIFER VELAZQUEZ Primary Care Unavailable NASERENITY, JENNIFER Primary Care Unavailable Colleen Marcum Attending Unavailable SONNY LOVE Attending Unavailable JENNIFER VELAZQUEZ Primary Care Unavailable SONNY LOVE Referring Unavailable JENNIFER VELAZQUEZ Primary Care Unavailable Haley, Mustapha Admitting Unavailable TrellsGregoryiz Consulting Unavailable James Camarillo Attending Unavailable Haley, Mustapha Admitting Unavailable NAJENNIFER BENTON Primary Care Unavailable Haley, Mustapha Consulting Unavailable Patricia Alcantara Attending Unavailable Haley, Mustapha Admitting Unavailable Paintsil, Forgan Attending Unavailable JENNIFER VELAZQUEZ Primary Care Unavailable TrellsMaite Consulting Unavailable Paintsil, Forgan Consulting Unavailable Haley, Mustapha Admitting Unavailable KitJames wang Attending Unavailable JENNIFER VELAZQUEZ Primary Care Unavailable Gregory Javieriz Consulting Unavailable James Camarillo Consulting Unavailable Haley, Mustapha Admitting Unavailable KitJames wang Attending Unavailable JENNIFER VELAZQUEZ Primary Care Unavailable TrellsGregoryiz Consulting Unavailable James Camarillo Consulting Unavailable Dang Dyer Attending Unavailable JENNIFER VELAZQUEZ Referring Unavailable Jennifer Blake Attending Unavailable Christian Shook Attending Unavailable NAUMOFF, JENNIFER Referring Unavailable NAUMOFF, JENNIFER Primary Care Unavailable James Camarillo Attending Unavailable Angely, Pauland Attending Unavailable Angely, Dayanand Referring Unavailable NAUMOFF, JENNIFER Primary Care Unavailable SONNY LOVE Attending Unavailable SONNY LOVE Referring Unavailable NAUMOFF, JENNIFER Primary Care Unavailable Bouchra, Bushnell Consulting Unavailable Makey, Dayanand Attending Unavailable Makey, Dayanand Referring Unavailable NAUMOFF, JENNIFER Primary Care Unavailable Bouchra, Bushnell Attending Unavailable NAUMOFF, JENNIFER Referring Unavailable Bouchra, Christian Attending Unavailable Bouchra, Christian Referring Unavailable NAUMOFF, JENNIFER Primary Care Unavailable Makeronaldo, Dayanand Consulting Unavailable SONNY LOVE Consulting Unavailable PROBLEMS PROBLEMS DATE TYPE CONDITION / CODE ATTENDING STATUS SOURCE Unknown N18.3 - Chronic kidney Bouchra, Christian Active [place] 8 disease, stage 3 Community (moderate) / Hospital N18.3(ICD-10) Repository Unknown D63.1 - Anemia in chronic Bouchra, Christian Active [place] 8 kidney disease / Community D63.1(ICD-10) Hospital Repository Unknown E11.9 - Type 2 diabetes Bouchra, Bushnell Active [place] 8 mellitus without Community complications / Hospital E11.9(ICD-10) Repository Unknown Z95.2 - Presence of Bouchra, Bushnell Active [place] 8 prosthetic heart valve / Community Z95.2(ICD-10) Hospital Repository Unknown Z95.1 - Presence of Bouchra, Bushnell Active [place] 8 aortocoronary bypass Community graft / Z95.1(ICD-10) Hospital Repository Unknown E78.00 - Pure Bouchra, Christian Active [place] 8 hypercholesterolemia, Community unspecified / Hospital E78.00(ICD-10) Repository Unknown I10 - Essential (primary) Bouchra, Christian Active [place] 8 hypertension / Community I10(ICD-10) Hospital Repository Unknown I48.91 - Unspecified Bouchra, Bushnell Active [place] 8 atrial fibrillation / Community I48.91(ICD-10) Hospital Repository Unknown I44.7 - Left Bouchra, Christian Active [place] 8 bundle-branch block, Community unspecified / Hospital I44.7(ICD-10) Repository Admitting Unspecified atrial ALY BREEN, Active [place] [address] Diagnosis fibrillation / DR. JENNIFER Mauro I48.91(ICD-10) Repository Unknown I12.9 - Hypertensive Angely, Active [place] 8 chronic kidney disease [facility] with stage 1 through Hospital stage 4 chronic kidney Repository disease, or unspecified chronic kidney disease / I12.9(ICD-10) Unknown I50.33 - Acute on chronic Bouchra, Bushnell Active [place] 8 diastolic (congestive) [facility] heart failure / Hospital I50.33(ICD-10) Repository Unknown I48.2 - Chronic atrial Bouchra, Christian Active [place] 8 fibrillation / [facility] I48.2(ICD-10) Hospital Repository Unknown E78.0 - Pure Bouchra, Bushnell Active [place] 8 hypercholesterolemia / [facility] E78.0(ICD-10) Hospital Repository Admitting Chronic kidney disease, ALY BREEN, Active [place] [address] Diagnosis stage 3 (moderate) / DR. 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 / Chel [facility] M72.2(ICD-10) Hospital Repository Unknown R41.82 - Altered mental ALY, Active [place] 7 status, unspecified / JENNIFER [facility] R41.82(ICD-10) Hospital Repository PROCEDURES PROCEDURES No Procedure Records FoundRESULTS RESULTS CBC-COMPLETE BLOOD CNT Collected: 10/26/2018 Status: F Source: [place] NO DIFF 12:15 PM [facility] REPOSITORY Order Comment: DR HICKEY ONLY ORDERED BMP TYPE CODE TESTS RESULT OUT OF RANGE REFERENCE UNITS LAB L100.1000 4.4-11.0 K/mm3 Normal WBC 9.1 LAB L100.1200 4.6-6.2 M/mm3 Low RBC 3.78 LAB L100.1300 13.0-16.5 g/dl Low HGB 11.4 LAB L100.1400 40-54 % Low HCT 35.5 LAB L100.1500 80-94 fL Normal MCV 93.9 LAB L100.1600 27.0-32.0 pg Normal MCH 30.2 LAB L100.1700 32-36 g/gl Normal MCHC 32.1 LAB L100.1810 11.6-14.6 % Normal RDW CV 14.2 LAB L100.1820 35.1-43.9 fl High RDW SD 48.5 LAB L100.1900 150-450 K/mm3 Normal PLT 171 LAB L100.2000 6.2-12.0 fl Normal MPV 10.1 Performed By: #### L100.0500 #### [facility] [address] [place], [address] HEMOGLOBIN A1C Collected: 10/26/2018 Status: F Source: [place] 12:15 PM [facility] REPOSITORY Order Comment: DR HICKEY ONLY ORDERED BMP TYPE CODE TESTS RESULT OUT OF RANGE REFERENCE UNITS LAB L501.9985 4.2-6.3 % High HGB A1C 7.5 Performed By: #### L501.9985 #### [facility] [address] [place], [address] COMPREHENSIVE METABOLIC Collected: 10/26/2018 Status: F Source: [facility] 12:15 PM [facility] REPOSITORY Order Comment: DR HICKEY ONLY ORDERED BMP TYPE CODE TESTS RESULT OUT OF RANGE REFERENCE UNITS LAB L501.0100 74-106 mg/dL Normal GLU 106 Result Comment: Fasting Glucose result from 100 to 125 mg/dL suggests IMPAIRED HOMEOSTASIS per A.D.A. criteria. Please note revised GLUCOSE reference range effective 2017. LAB L501.1000 7-18 mg/dL High BUN 42 LAB L501.1100 0.70-1.30 mg/dL High CREAT,SERUM 1.67 Result Comment: The validity of the calculated GFR AND GFRAA in patients over 70 years has not been determined. Clinical correlation is essential. LAB L501.1110 >60 mL/min Low EST GFR 43 Result Comment: Non- GFR Calc LAB L501.1115 >60 mL/min Low EST GFR - AA 52 Result Comment: GFR Calc LAB L501.1300 10-20 RATIO High BUN/CRE 25.1 LAB L501.1500 6.4-8.2 g/dL T Normal PROT 7.4 LAB L501.1800 3.2-5.0 g/dL Normal ALB 3.2 LAB L501.1950 2.2-4.2 g/dL Normal GLOB 4.2 LAB L501.2000 0.9-2.4 RATIO Low A/G 0.8 LAB L501.2200 8.5-10.1 mg/dL Low CA 8.4 LAB L501.4100 15-37 U/L Normal AST 16 LAB L501.4305 45-117 U/L Normal ALK P 103 LAB L501.4405 16-61 U/L Normal ALT 21 LAB L501.4600 0.20-1.00 mg/dL T Normal BILI 0.60 LAB L501.5300 136-145 mmol/L NA Normal 140 LAB L501.5600 3.5-5.1 mmol/L K Normal 5.0 LAB L501.5900 98-107 mmol/L High CL 111 LAB L501.6100 21.0-32.0 mmol/L Normal CO2 24.0 LAB L501.6200 5-15 Normal GAP 5 Performed By: #### L500.4050, L500.4100, L501.9520 #### [facility] [address] [place], [address] LIPID PROFILE Collected: 10/26/2018 Status: F Source: [place] 12:15 PM [facility] REPOSITORY Order Comment: DR HICKEY ONLY ORDERED BMP TYPE CODE TESTS RESULT OUT OF RANGE REFERENCE UNITS LAB L501.4900 200 mg/dL Normal CHOL 112 Result Comment: <200 mg/dL Desirable 200-240 mg/dL Borderline >240 mg/dL High Risk LAB L501.5000 mg/dL Normal TRIG 132 Result Comment: The drugs N-Acetylcysteine and Metamizole may falsely depress this assay. Serum Triglycerides Reference Interval Normal <150 mg/dL Borderline high 150 - 199 mg/dL High 200 - 499 mg/dL Very High > or = 500 mg/dL LAB L501.6400 mg/dL Low HDL 29 Result Comment: The drugs N-Acetylcysteine and Metamizole may falsely depress this assay. Reference Range HDL <40 mg/dL Low HDL Cholesterol HDL >or= 60 mg/dL High HDL Cholesterol LAB L501.6500 0-130 mg/dL Normal LDL 57 LAB L501.6600 5-40 mg/dL Normal VLDL 26 Performed By: #### L500.4050, L500.4100, L501.9520 #### [facility] [address] [place], [address] THYROID STIM HORMONE Collected: 10/26/2018 Status: F Source: [place] ([facility]) 12:15 PM [facility] REPOSITORY Order Comment: DR HICKEY ONLY ORDERED BMP TYPE CODE TESTS RESULT OUT OF RANGE REFERENCE UNITS LAB L501.9520 0.358-3.74 uIU/mL Normal TSH 2.42 Performed By: #### L500.4050, L500.4100, L501.9520 #### [facility] [address] [place], [place], [address] CARDIOLOGY VISIT Observed: 10/24/2018 Status: F Source: [place] REPORT 2:51 PM [facility] REPOSITORY [facility] [address] [place] [address] OFFICE VISIT Date of Service: 10/24/18 MR#: [id number] Acct: [id number] Name: JODIE SILVERIO Rep #: [id number] : 1940 Provider: Christian Shook MD Age/Sex: 78/M [place] [facility] [place]: Signed HPI HPI Chief Complaint: Follow up Details: JODIE SILVERIO, is a 78 M who presents to the office today for a follow up visit. He is a gentleman with a history of coronary artery disease status post carotid bypass surgery redo with a left internal mammary artery to the left anterior descending artery and saphenous vein graft to left anterior descending artery and saphenous vein graft to circumflex artery and right coronary artery. His redo bypass surgery involved a saphenous vein graft to left anterior descending artery and saphenous vein graft to obtuse marginal branch and circumflex artery and saphenous vein graft to the posterior descending artery and right coronary artery. He also had an aortic valve replacement with a 25 mm Pietro Sheppard valve. Postoperatively he did have atrial fibrillation and also underwent a cholecystectomy. During the hospitalization he was evaluated with an echocardiogram with demonstrated preserved ejection fraction of 60% and a well-functioning prosthetic aortic valve. He has had no dizziness or diaphoresis no near syncope or syncope since his discharge. He says that occasionally he does feel some fluttering in his chest. He has had no dizziness or diaphoresis. His physical exam today demonstrates clear lung hunter regular rate and rhythm with frequent irregularities and no pedal edema. His blood pressure is under good control. Intake Vital Signs10/24/18 Height 5 ft 5 in 10/24/18 Weight: 283 lb 10/24/18 Body Mass Index (BMI) 47.0 10/24/18 Blood Pressure 122/62 H 10/24/18 Blood Pressure Location Lt brachial Intake Visit Reasons: 6 M FU Assistant Analyst Required: No Accompanied by: Is patient in pain?: No Allergies Penicillins [PCN] Allergy (Verified 10/24/18 14:16) Swelling Medications Aspirin [Adult Low Dose Aspirin EC] 81 mg PO DAILY 07/11/16 [History Confirmed 10/24/18] Atorvastatin Calcium [Lipitor] 40 mg PO QHS 07/11/16 [History Confirmed 10/24/18] Multivitamin [Daily Multiple Vitamin] 1 ea PO DAILY 07/11/16 [History Confirmed 10/24/18] Pantoprazole Sodium [Protonix] 20 mg PO DAILY 07/11/16 [History Confirmed 10/24/18] Insulin Regular, Human [Novolin R] 25 unit SC BID 07/24/16 [History Confirmed 10/24/18] Allopurinol [Zyloprim] 150 mg PO DAILYCM #15 tab 08/27/16 [Rx Confirmed 10/24/18] levETIRAcetam tablet [Keppra tablet] 500 mg PO BID #60 tab 08/27/16 [Rx Confirmed 10/24/18] Warfarin [Coumadin] 2.5 mg PO DAILY 10/06/16 [History Confirmed 10/24/18] Cholecalciferol (VIT D3) [Vitamin D3] 1,000 unit PO DAILY 10/26/16 [History Confirmed 10/24/18] Isosorbide Mononitrate [Isosorbide Mononitrate ER] 60 mg PO DAILY 01/10/18 [History Confirmed 10/24/18] Sertraline HCl [Zoloft] 25 mg PO DAILY 01/10/18 [History Confirmed 10/24/18] Iron Polysaccharide Complex [Ferrex 150] 150 mg PO QODAY 02/04/18 [History Confirmed 10/24/18] insulin NPH isophane U- 100 human 100 unit/mL subcutaneous suspension 25 unit SC BID ml 03/08/18 [History Confirmed 10/24/18] furosemide 40 mg tablet 40 mg PO DAILY #90 tab 05/25/18 [Rx Confirmed 10/24/18] losartan 25 mg tablet 25 mg PO DAILY 10/24/18 [History Confirmed 10/24/18] metoprolol tartrate 25 mg tablet 25 mg PO BID #180 tab 10/24/18 [Rx Confirmed 10/24/18] [facility] Medical History Acute on chronic diastolic (congestive) heart failure (Chronic) Chronic atrial fibrillation (Chronic) Atherosclerosis of coronary artery bypass graft without angina pectoris (Chronic) Non-rheumatic aortic stenosis (Chronic) Hypertension (Chronic) Left bundle branch block (Chronic) Localized edema (Chronic) Venous insufficiency of both lower extremities (Chronic) Hyperlipemia (Chronic) Chronic renal failure, stage 3 (moderate) (Chronic) Morbid obesity with BMI of 45.0-49.9, adult (Chronic) Anemia (Chronic) COPD (chronic obstructive pulmonary disease) (Chronic) Cholecystitis (Chronic) Obstructive sleep apnea (Chronic) Ocular migraine (Chronic) TIA (transient ischemic attack) (Chronic) Type 2 diabetes mellitus without complications (Chronic) Surgical History H/O aortic valve replacement (Resolved) H/O coronary artery bypass surgery (Resolved 02/24/16) Hx of cholecystectomy (Resolved 01/13/17) Family History Father Myocardial infarction Mother CVA (cerebral vascular accident) Brother CAD (coronary artery disease) Diabetes Social History Smoking Status: Former smoker ROS Const Const: Negative for fatigue, weakness, night sweats, excessive sweating, frequent falls, headache(s) or daytime sleepiness Eyes Eyes: Negative for loss of peripheral vision, transient loss of vision, blind spots, double vision or blurry vision ENT ENT: Negative for headache(s), dizziness, balance problems, Nosebleed/epistaxis, tongue swelling or lip swelling Cardio Chest Pain: No Palpitations: Yes Edema: None Muscle aches with walking: None Resp Respiratory: Positive for SOB at rest and SOB with activity; negative for SOB orthopnea\SOB lying down, Cough or paroxysmal nocturnal dyspnea GI GI: Negative nausea, vomiting, heartburn, black,tarry stools or bright, red blood in stools : Negative for hematuria Musc Musc: Negative for balance problems, muscle aches/ myalgia, muscle weakness or joint pain Skin Skin: Negative non-healing lesions, unusual bruising or rash Neuro Neuro: Negative for weakness, frequent falls, headache(s), double vision, dizziness, lightheadedness, orthostatic symptoms, blurry vision or lack of coordination Rey Hematologic/Lymphatic: Negative for easy bruising or easy bleeding Endo Endo: Negative for fatigue, excessive sweating, cold intolerance, heat intolerance, increased thirst/drinking or hair loss Psych Psych: Negative for anxiety or depression Allergy Allergy/Immunology: Negative for throat swelling, Negative for tongue swelling, Negative for hives, Negative for rash, Negative for lip swelling Cardiology Exam Const Appearance: cooperative, healthy appearing, well developed, well groomed and no acute distress Nutritional Appearance: well nourished and average body habitus Orientation: alert, awake and oriented x3 Head Head: normal to inspection, normocephalic and atraumatic Ears: hearing grossly normal bilaterally and external ears normal Nose: external nose normal, nasal mucous membranes and turbinates normal, nares normal, septum normal, no nasal discharge Face and Sinus: face symmetric Mouth: oral mucosae normal, tongue normal, oropharynx normal and moist mucous membranes Teeth and gingiva: dentition normal Throat: posterior oropharynx normal, tonsils normal and uvula midline Eyes General: appearance normal, both eyes and all related structures Eyelids: eyelids normal Conjunctivae: conjunctivae normal Pupils: PERRL, normal by confrontation and accommodation normal EOM: EOM intact bilaterally Neck Neck: normal visual inspection, trachea midline and no JVD JVD: +5 Carotids: normal carotid upstroke and bounding pulses Chest Chest inspection: normal inspection of the chest, symmetric chest movement and normal respiratory effort Auscultation: Bilateral: Clear to Auscultation Cardio Palpation: normal PMI Rate: regular rate Rhythm: regular rhythm Heart sounds: S1 normal, S2 normal and normal, physiologic split S2; negative rub, gallop or murmur GI GI: normal to inspection, soft, no hepatosplenomegaly and bowel sounds present Neuro General: alert, awake, oriented x3, no focal sensory deficit, gait normal and moves all extremities Skin Skin: no rashes or lesions noted Extremities Pulses: Normal: Right Femoral Pulse, Left Femoral Pulse, Right Dorsalis Pedis Pulse, Left Dorsalis Pedis Pulse, Right Posterior Tibial Pulse, Left Posterior Tibial Pulse, Right Radial Pulse, Left Radial Pulse Lower Extremity Edema: None: Bilateral Musculoskel Musculoskeletal: No joint tenderness Psych Psychological: normal affect Assessment AND Plan 1. H/O coronary artery bypass surgery Z95.1 Redo CABG x 3 SVG-LAD, SVG OM of Cx, SVG- PDA of RCA and aortic valve replacement with #25 Pietro-Sheppard valve. 02/24/2016 CABG x 4 [place]AK[place]-D1, SVG-Distal LAD, SVG-Lat CX, SVG-RCA 12/15/98 Plan He does have a history of coronary artery disease status post carotid bypass surgery. He is not had any evidence of angina my recommendation is for us to continue him on the beta-kayrn without as making any major changes. 2. H/O aortic valve replacement Z95.2 aortic valve replacement with #25 Pietro-Sheppard valve. 02/24/2016 Plan He is status post aortic valve replacement. His last echocardiogram which was performed when he was hospitalized demonstrated adequate gradient across the aortic valve. His ejection fraction was noted to be normal the mean gradient across the valve was 9 mmHg and his pulmonary artery pressures were noted to be normal. He will continue with antibiotic prophylaxis only. 3. Atrial fibrillation with rapid ventricular response I48.91 Plan He does have chronic atrial fibrillation. He occasionally has rapid ventricular response rate. My recommendation will be to increase the metoprolol to 25 mg twice a day for better heart rate response. He will remain on the anticoagulation. 4. Essential hypertension I10 Plan His blood pressure appears to be under good control on the current medical therapy the same will be continued without as making any major changes. He also remains on the losartan as well as the Lasix daily. 5. Left bundle branch block I44.7 6. Pure hypercholesterolemia E78.00 Plan He does have a history of hyperlipidemia for which she remains on a high intensity statin. We will continue the same without as making any changes. His most recent lipid profile in December demonstrated total cholesterol 116, LDL 42, HDL of 30. No changes will be made. Thank you for allowing me to participate in the care of your patient. Please don't hesitate to call if any issues arise Plan Detail Other Medications New: Discontinued: Follow Up 6 Months (mmm) Coding Level of Care Code Off vis,est,level 4 Diagnoses H/O coronary artery bypass surgery Z95.1 H/O aortic valve replacement Z95.2 Atrial fibrillation with rapid ventricular response I48.91 Essential hypertension I10 Hypertension type: essential hypertension Left bundle branch block I44.7 Pure hypercholesterolemia E78.00 Hyperlipidemia type: pure hypercholesterolemia Coding Level of Care Code Off vis,est,level 4 Diagnoses H/O coronary artery bypass surgery Z95.1 H/O aortic valve replacement Z95.2 Atrial fibrillation with rapid ventricular response I48.91 Essential hypertension I10 Hypertension type: essential hypertension Left bundle branch block I44.7 Pure hypercholesterolemia E78.00 Hyperlipidemia type: pure hypercholesterolemia 10/24/18 1451 <Electronically signed by Christian Shook MD> Date Christian Shook MD Cosigner Signature: Date (if applicable) CC: Jennifer Velazquez MD PRO Collected: 10/02/2018 Status: F Source: [facility] 1:47 PM [facility] REPOSITORY TYPE CODE TESTS RESULT OUT OF REFERENCE UNITS RANGE LAB PT(LOINC) 9.3-14.6 seconds Protime High 18.6 LAB INR(LOINC) 0.9-1.2 ratio PT High International 1.8 Ratio Result Comment: Standard Dose 2.0 - 3.0 High Dose 2.5 - 3.5 The recommended therapeutic range for oral anticoagulant therapy is: LOW RISK: Prophylaxis of venous thrombosis INR: 2.0 - 3.0 Treatment of pulmonary embolism 2.0 - 3.0 Prevention of systemic embolism 2.0 - 3.0 HIGH RISK: Mechanical prosthetic valves 2.5 - 3.5 Performed By: #### PRO #### [facility] [address] [address] CBC-COMPLETE BLOOD CNT Collected: 10/02/2018 Status: F Source: [place] NO DIFF 12:35 PM [facility] REPOSITORY TYPE CODE TESTS RESULT OUT OF RANGE REFERENCE UNITS LAB L100.1000 4.4-11.0 K/mm3 Normal WBC 9.6 LAB L100.1200 4.6-6.2 M/mm3 Low RBC 3.80 LAB L100.1300 13.0-16.5 g/dl Low HGB 11.7 LAB L100.1400 40-54 % Low HCT 36.2 LAB L100.1500 80-94 fL High MCV 95.3 LAB L100.1600 27.0-32.0 pg Normal MCH 30.8 LAB L100.1700 32-36 g/gl Normal MCHC 32.3 LAB L100.1810 11.6-14.6 % Normal RDW CV 13.8 LAB L100.1820 35.1-43.9 fl High RDW SD 45.3 LAB L100.1900 150-450 K/mm3 Normal PLT 169 LAB L100.2000 6.2-12.0 fl Normal MPV 10.6 Performed By: #### L100.0500 #### [facility] [address] [place], [place], [address] PROTEIN+CREATININE Collected: Status: F Source: [place] RATIO,URINE 10/02/2018 12:35 PM [facility] REPOSITORY TYPE CODE TESTS RESULT OUT OF RANGE REFERENCE UNITS LAB L501.1200 NO RANGE EST. mg/dL Normal UR CREAT 54.60 LAB L501.1930 <11.9 mg/dL High 79.3 PROTEIN,UR.R AN. LAB L501.1940 0-200 mg/g CRE High PROT:CRE 1452 RATIO Performed By: #### L501.0900 #### [facility] [address] [place], [address] PTHIN Collected: 10/02/2018 Status: F Source: [place] 12:35 PM [facility] REPOSITORY TYPE CODE TESTS RESULT OUT OF RANGE REFERENCE UNITS LAB L509.1000 18.4-80.1 pg/mL High PTHIN 91.6 Performed By: #### L509.1000 #### [facility] [address] [place], [place], [id number] RENAL PROFILE Collected: 10/02/2018 Status: F Source: [place] 12:35 PM [facility] REPOSITORY TYPE CODE TESTS RESULT OUT OF RANGE REFERENCE UNITS LAB L501.0100 74-106 mg/dL High GLU 261 Result Comment: Glucose result greater than or equal to 200 mg/dL suggests DIABETES MELLITUS per A.D.A. criteria. Please note revised GLUCOSE reference range effective 2017. LAB L501.1000 7-18 mg/dL High BUN 40 LAB L501.1100 0.70-1.30 mg/dL High CREAT,SERUM 1.96 Result Comment: The validity of the calculated GFR AND GFRAA in patients over 70 years has not been determined. Clinical correlation is essential. LAB L501.1110 >60 mL/min Low EST GFR 35 Result Comment: Non- GFR Calc LAB L501.1115 >60 mL/min Low EST GFR - AA 43 Result Comment: GFR Calc LAB L501.1300 10-20 RATIO High BUN/CRE 20.4 LAB L501.1800 3.2-5.0 g/dL Normal ALB 3.3 LAB L501.2200 8.5-10.1 mg/dL CA Normal 8.5 LAB L501.2300 2.5-4.9 mg/dL Low PHOS 2.4 LAB L501.5300 136-145 mmol/L NA Normal 138 LAB L501.5600 3.5-5.1 mmol/L K Normal 4.9 LAB L501.5900 98-107 mmol/L CL Normal 104 LAB L501.6100 21.0-32.0 mmol/L Normal CO2 26.0 Performed By: #### L500.3600, L501.1400, L503.6030, L503.6550 #### [facility] [address] [place], [place], [id number] URIC ACID Collected: 10/02/2018 Status: F Source: [place] 12:35 PM [facility] REPOSITORY TYPE CODE TESTS RESULT OUT OF RANGE REFERENCE UNITS LAB L501.1400 3.5-7.2 mg/dL Normal URIC 6.0 Result Comment: The drugs N-Acetylcysteine and Metamizole may falsely depress this assay. Performed By: #### L500.3600, L501.1400, L503.6030, L503.6550 #### [facility] [address] [place], [address] IRON+IRON BINDING Collected: 10/02/2018 Status: F Source: [place] CAPACITY 12:35 PM [facility] REPOSITORY TYPE CODE TESTS RESULT OUT OF RANGE REFERENCE UNITS LAB L503.6075 250-450 ug/dL Low TIBC 198 LAB L503.6150 65-175 ug/dL Low IRON 60 LAB L503.6250 15.0-55.0 % IRON Normal SATURATION 30.3 Performed By: #### L500.3600, L501.1400, L503.6030, L503.6550 #### [facility] [address] [facility] [place], [address] FERRITIN Collected: 10/02/2018 Status: F Source: [place] 12:35 PM [facility] REPOSITORY TYPE CODE TESTS RESULT OUT OF RANGE REFERENCE UNITS LAB L503.6550 26-388 ng/mL Normal FERRITIN 326 Performed By: #### L500.3600, L501.1400, L503.6030, L503.6550 #### [facility] [address] [facility] [place], [address] CBC-COMPLETE BLOOD CNT Collected: 06/01/2018 Status: F Source: [place] NO DIFF 12:52 PM [facility] REPOSITORY TYPE CODE TESTS RESULT OUT OF RANGE REFERENCE UNITS LAB L100.1000 4.4-11.0 K/mm3 Normal WBC 10.6 LAB L100.1200 4.6-6.2 M/mm3 Low RBC 3.65 LAB L100.1300 13.0-16.5 g/dl Low HGB 11.1 LAB L100.1400 40-54 % Low HCT 34.3 LAB L100.1500 80-94 fL Normal MCV 94.0 LAB L100.1600 27.0-32.0 pg Normal MCH 30.4 LAB L100.1700 32-36 g/gl Normal MCHC 32.4 LAB L100.1810 11.6-14.6 % Normal RDW CV 14.3 LAB L100.1820 35.1-43.9 fl High RDW SD 46.5 LAB L100.1900 150-450 K/mm3 Normal PLT 173 LAB L100.2000 6.2-12.0 fl Normal MPV 10.4 Performed By: #### L100.0500 #### [facility] [address] [place], [address] HEMOGLOBIN A1C Collected: 06/01/2018 Status: F Source: [place] 12:52 PM [facility] REPOSITORY TYPE CODE TESTS RESULT OUT OF RANGE REFERENCE UNITS LAB L501.9985 4.2-6.3 % High HGB A1C 6.7 Performed By: #### L501.9985 #### [facility] [address] [place], [address] BNP,B-TYPE NATRIURETIC Collected: 06/01/2018 Status: F Source: [place] PEPTIDE 12:52 PM [facility] REPOSITORY TYPE CODE TESTS RESULT OUT OF RANGE REFERENCE UNITS LAB L503.6620 0-100 pg/mL High B-TYPE 197.4 JAMA PEP Performed By: #### L503.6620 #### [facility] [address] [place], [address] BASIC METABOLIC Collected: 06/01/2018 Status: F Source: [place] PROFILE (BMP) 12:52 PM [facility] REPOSITORY TYPE CODE TESTS RESULT OUT OF RANGE REFERENCE UNITS LAB L501.0100 74-106 mg/dL High GLU 131 Result Comment: Fasting Glucose result greater than or equal to 126 mg/dL suggests DIABETES MELLITUS per A.D.A. criteria. Please note revised GLUCOSE reference range effective 2017. LAB L501.1000 7-18 mg/dL High BUN 38 LAB L501.1100 0.70-1.30 mg/dL High CREAT,SERUM 1.87 Result Comment: The validity of the calculated GFR AND GFRAA in patients over 70 years has not been determined. Clinical correlation is essential. LAB L501.1110 >60 mL/min Low EST GFR 37 Result Comment: Non- GFR Calc LAB L501.1115 >60 mL/min Low EST GFR - AA 45 Result Comment: GFR Calc LAB L501.1300 10-20 RATIO High BUN/CRE 20.3 LAB L501.2200 8.5-10.1 mg/dL CA Normal 8.8 LAB L501.5300 136-145 mmol/L NA Normal 142 LAB L501.5600 3.5-5.1 mmol/L K Normal 4.4 LAB L501.5900 98-107 mmol/L High CL 108 LAB L501.6100 21.0-32.0 mmol/L Normal CO2 25.0 LAB L501.6200 5-15 Normal GAP 9 Performed By: #### L500.2500, L501.1400, L501.9520 #### [facility] [address] [facility] [place], [address] URIC ACID Collected: 06/01/2018 Status: F Source: [place] 12:52 PM [facility] REPOSITORY TYPE CODE TESTS RESULT OUT OF RANGE REFERENCE UNITS LAB L501.1400 3.5-7.2 mg/dL Normal URIC 6.4 Result Comment: The drugs N-Acetylcysteine and Metamizole may falsely depress this assay. Performed By: #### L500.2500, L501.1400, L501.9520 #### [facility] [address] [place], [place], [id number] THYROID STIM HORMONE Collected: 06/01/2018 Status: F Source: [place] (TSH) 12:52 PM [facility] REPOSITORY TYPE CODE TESTS RESULT OUT OF RANGE REFERENCE UNITS LAB L501.9520 0.358-3.74 uIU/mL Normal TSH 2.78 Performed By: #### L500.2500, L501.1400, L501.9520 #### [facility] [address] [facility] [place], [address] PROTEIN+CREATININE Collected: Status: F Source: [place] RATIO,URINE 03/27/2018 1:04 PM [facility] REPOSITORY TYPE CODE TESTS RESULT OUT OF RANGE REFERENCE UNITS LAB L501.1200 NO RANGE EST. mg/dL Normal UR CREAT 55.90 LAB L501.1930 <11.9 mg/dL High 28.4 PROTEIN,UR.R AN. LAB L501.1940 0-200 mg/g CRE High PROT:CRE 508 RATIO Performed By: #### L501.0900 #### [facility] [address] [place], [place], [address] CBC-COMPLETE BLOOD CNT Collected: 03/27/2018 Status: F Source: [place] NO DIFF 1:04 PM [facility] REPOSITORY TYPE CODE TESTS RESULT OUT OF RANGE REFERENCE UNITS LAB L100.1000 4.4-11.0 K/mm3 Normal WBC 9.2 LAB L100.1200 4.6-6.2 M/mm3 Low RBC 3.49 LAB L100.1300 13.0-16.5 g/dl Low HGB 10.6 LAB L100.1400 40-54 % Low HCT 33.2 LAB L100.1500 80-94 fL High MCV 95.1 LAB L100.1600 27.0-32.0 pg Normal MCH 30.4 LAB L100.1700 32-36 g/gl Low MCHC 31.9 LAB L100.1810 11.6-14.6 % High RDW CV 14.7 LAB L100.1820 35.1-43.9 fl High RDW SD 48.2 LAB L100.1900 150-450 K/mm3 Normal PLT 151 LAB L100.2000 6.2-12.0 fl Normal MPV 10.2 Performed By: #### L100.0500 #### [facility] [address] [facility] [address] [place], [place], [address] RENAL PROFILE Collected: 03/27/2018 Status: F Source: [place] 1:04 PM [facility] REPOSITORY TYPE CODE TESTS RESULT OUT OF RANGE REFERENCE UNITS LAB L501.0100 74-106 mg/dL High GLU 157 Result Comment: Fasting Glucose result greater than or equal to 126 mg/dL suggests DIABETES MELLITUS per A.D.A. criteria. Please note revised GLUCOSE reference range effective 2017. LAB L501.1000 7-18 mg/dL High BUN 31 LAB L501.1100 0.70-1.30 mg/dL High CREAT,SERUM 1.81 Result Comment: The validity of the calculated GFR AND GFRAA in patients over 70 years has not been determined. Clinical correlation is essential. LAB L501.1110 >60 mL/min Low EST GFR 39 Result Comment: Non- GFR Calc LAB L501.1115 >60 mL/min Low EST GFR - AA 47 Result Comment: GFR Calc LAB L501.1300 10-20 RATIO Normal BUN/CRE 17.1 LAB L501.1800 3.2-5.0 g/dL Normal ALB 3.2 LAB L501.2200 8.5-10.1 mg/dL CA Normal 8.6 LAB L501.2300 2.5-4.9 mg/dL Normal PHOS 2.8 LAB L501.5300 136-145 mmol/L NA Normal 140 LAB L501.5600 3.5-5.1 mmol/L K Normal 4.2 LAB L501.5900 98-107 mmol/L CL Normal 107 LAB L501.6100 21.0-32.0 mmol/L Normal CO2 27.0 Performed By: #### L500.3600, L503.6030, L503.6550 #### [facility] [address] [facility]. [place], [place], [id number] IRON+IRON BINDING Collected: 03/27/2018 Status: F Source: [facility] 1:04 [facility] REPOSITORY TYPE CODE TESTS RESULT OUT OF RANGE REFERENCE UNITS LAB L503.6075 250-450 ug/dL Low TIBC 194 LAB L503.6150 65-175 ug/dL Low IRON 63 LAB L503.6250 15.0-55.0 % IRON Normal SATURATION 32.5 Performed By: #### L500.3600, L503.6030, L503.6550 #### [facility] [address] [place], [place], [address] FERRITIN Collected: 03/27/2018 Status: F Source: [place] 1:04 [facility] REPOSITORY TYPE CODE TESTS RESULT OUT OF RANGE REFERENCE UNITS LAB L503.6550 26-388 ng/mL Normal FERRITIN 381 Performed By: #### L500.3600, L503.6030, L503.6550 #### [facility] [address] [facility] [place], [address] PTHIN Collected: 03/27/2018 Status: F Source: [place] 1:04 PM [facility] REPOSITORY TYPE CODE TESTS RESULT OUT OF RANGE REFERENCE UNITS LAB L509.1000 18.4-80.1 pg/mL High PTHIN 85.5 Result Comment: Please Note: PTH INTACT METHOD AND REFERENCE RANGE CHANGE Effective 11/16/2017. Performed By: #### L509.1000 #### [facility] [address] [place], [address] CARDIOLOGY VISIT Observed: 03/08/2018 Status: F Source: [place] REPORT 1:58 PM [facility] REPOSITORY [facility] [address] [place] [address] OFFICE VISIT Date of Service: 03/08/18 MR#: [id number] Acct: [id number] Name: JODIE SILVERIO Rep #: [id number] : 1940 Provider: Christian Shook MD Age/Sex: 77/M [place] [facility] [place]: Signed HPI HPI Chief Complaint: Follow up Details: JODIE SILVERIO, is a 77 M who presents to the office today for follow-up visit as well as postoperative visit. He is a gentleman with a history of coronary artery disease status post carotid bypass surgery redo with a left internal mammary artery to the left anterior descending artery and saphenous vein graft to left anterior descending artery and saphenous vein graft to circumflex artery and right coronary artery. His redo bypass surgery involved a saphenous vein graft to left anterior descending artery and saphenous vein graft to obtuse marginal branch and circumflex artery and saphenous vein graft to the posterior descending artery and right coronary artery. He also had an aortic valve replacement with a 25 mm Pietro Sheppard valve. Postoperatively he did have atrial fibrillation and also underwent a cholecystectomy. He was recently admitted to the hospital again with shortness of breath and renal dysfunction. He was treated and subsequently discharged. During the hospitalization he was evaluated with an echocardiogram with demonstrated preserved ejection fraction of 60% and a well-functioning prosthetic aortic valve. He has had no dizziness or diaphoresis no near syncope or syncope since his discharge. His pulse oximetry has been running approximately 89-90% he has had some pedal edema noted though. He is however not had any neck arm or jaw discomfort suggest angina. Intake Vital Signs03/08/18 Height 5 ft 5 in 03/08/18 Weight: 280 lb 03/08/18 Body Mass Index (BMI) 46.5 03/08/18 Blood Pressure 110/54 Intake Visit Reasons: DC U 3-14 Assistant Analyst Required: No Accompanied by: Is patient in pain?: No Allergies Penicillins [PCN] Allergy (Verified 03/08/18 13:31) Swelling Medications Aspirin [Adult Low Dose Aspirin EC] 81 mg PO DAILY 07/11/16 [History Confirmed 03/08/18] Atorvastatin Calcium [Lipitor] 40 mg PO QHS 07/11/16 [History Confirmed 03/08/18] Metoprolol Tartrate [Lopressor (beta karyn)] 12.5 mg PO BID 07/11/16 [History Confirmed 03/08/18] Multivitamin [Daily Multiple Vitamin] 1 ea PO DAILY 07/11/16 [History Confirmed 03/08/18] Pantoprazole Sodium [Protonix] 20 mg PO DAILY 07/11/16 [History Confirmed 03/08/18] Insulin Regular, Human [Novolin R] 25 unit SC BID 07/24/16 [History Confirmed 03/08/18] Allopurinol [Zyloprim] 150 mg PO DAILYCM #15 tab 08/27/16 [Rx Confirmed 03/08/18] levETIRAcetam tablet [Keppra tablet] 500 mg PO BID #60 tab 08/27/16 [Rx Confirmed 03/08/18] Warfarin [Coumadin] 2.5 mg PO DAILY 10/06/16 [History Confirmed 03/08/18] Cholecalciferol (VIT D3) [Vitamin D3] 1,000 unit PO DAILY 10/26/16 [History Confirmed 03/08/18] Isosorbide Mononitrate [Isosorbide Mononitrate ER] 60 mg PO DAILY 01/10/18 [History Confirmed 03/08/18] Sertraline HCl [Zoloft] 25 mg PO DAILY 01/10/18 [History Confirmed 03/08/18] Iron Polysaccharide Complex [Ferrex 150] 150 mg PO QODAY 02/04/18 [History Confirmed 03/08/18] Albuterol Inhaler [Ventolin Hfa] 2 puff INHALATION Q4H PRN PRN #1 inhaler 02/08/18 [Rx Confirmed 03/08/18] Furosemide 40 mg PO DAILY #30 tab 02/08/18 [Rx Confirmed 03/08/18] insulin NPH isophane U-100 human 100 unit/mL subcutaneous suspension 25 unit SC BID ml 03/08/18 [History Confirmed 03/08/18] [facility] Medical History Acute on chronic diastolic (congestive) heart failure (Chronic) Chronic atrial fibrillation (Chronic) Atherosclerosis of coronary artery bypass graft without angina pectoris (Chronic) Non-rheumatic aortic stenosis (Chronic) Hypertension (Chronic) Left bundle branch block (Chronic) Localized edema (Chronic) Venous insufficiency of both lower extremities (Chronic) Hyperlipemia (Chronic) Chronic renal failure, stage 3 (moderate) (Chronic) Morbid obesity with BMI of 45.0-49.9, adult (Chronic) Anemia (Chronic) COPD (chronic obstructive pulmonary disease) (Chronic) Cholecystitis (Chronic) Obstructive sleep apnea (Chronic) Ocular migraine (Chronic) TIA (transient ischemic attack) (Chronic) Type 2 diabetes mellitus without complications (Chronic) Surgical History H/O aortic valve replacement (Resolved) H/O coronary artery bypass surgery (Resolved 02/24/16) Hx of cholecystectomy (Resolved 01/13/17) Family History Father Myocardial infarction Mother CVA (cerebral vascular accident) Brother CAD (coronary artery disease) Diabetes Social History Smoking Status: Former smoker ROS Const Const: Positive for other (Was in [facility] with pneumonia AND COPD 02/08, feels well now); negative for fatigue, weakness, body ache, fever(s), headache(s), chills, frequent falls, night sweats, daytime sleepiness, difficulty sleeping, excessive sweating, weight gain, weight loss, increased appetite, poor appetite or anorexia Eyes Eyes: Negative for blind spots, loss of peripheral vision, transient loss of vision, blurry vision, change in vision, double vision, floaters, tunnel vision or other ENT ENT: Negative for headache(s), dizziness, hearing loss, tinnitus, Nosebleed/epistaxis, balance problems, post nasal drip, lip swelling, tongue swelling, bleeding gums, hoarseness, neck pain, dry mouth or other Cardio Chest Pain: Yes (Gets a pain that seems to start in his head, radiates down and across chest) Frequency: more than once a day (about twice a day) Character: dull Onset: at rest, other (starts in head and radiates down. Is seeing a neurologist.) Location: other (as above) Duration: minutes Edema: Bilateral (+2 pitting to below knees bilaterally) Muscle aches with walking: None Resp Respiratory: Positive for SOB with activity and Cough (occasional, dry); negative for SOB at rest, SOB orthopnea\SOB lying down, Coughing up blood/hemoptysis, chest congestion, pain on inspiration, snoring, stridor, wheezing, crackles, paroxysmal nocturnal dyspnea or other GI GI: Negative nausea, vomiting, heartburn, constipation, belching, bloating, cramping, vomiting blood/hematemesis, bright, red blood in stools, black,tarry stools, loose stools, Difficulty Swallowing or other : Negative for hematuria, frequent nighttime urination/ nocturia, erectile dysfunction or abnormal vaginal bleeding Musc Musc: Negative for balance problems, muscle aches/ myalgia, muscle weakness or joint pain Skin Skin: Negative redness, non-healing lesions, rash, unusual bruising, skin ulcer, wounds, jaundice or other Neuro Neuro: Negative for weakness, headache(s), frequent falls, blurry vision, double vision, dizziness, lightheadedness, near syncope, syncope, orthostatic symptoms, confusion, memory loss, restless legs, vertigo, seizures, lack of coordination or other Rey Hematologic/Lymphatic: Negative for easy bleeding, easy bruising, enlarged lymph nodes or other Endo Endo: Negative for fatigue, excessive sweating, cold intolerance, heat intolerance, flushing, increased thirst/drinking, increased hunger, hair loss, hair growth or other Psych Psych: Negative for anxiety, depression, thoughts of harming anyone, thoughts of harming yourself, visual hallucinations, panic attacks or audible hallucinations Allergy Allergy/Immunology: Negative for lip swelling, Negative for tongue swelling, Negative for rash, Negative for throat swelling, Negative for hives Cardiology Exam Const Appearance: cooperative, healthy appearing, well developed, well groomed and no acute distress Nutritional Appearance: well nourished and average body habitus Orientation: alert, awake and oriented x3 Head Head: normal to inspection, normocephalic and atraumatic Ears: hearing grossly normal bilaterally and external ears normal Nose: external nose normal, nasal mucous membranes and turbinates normal, nares normal, septum normal, no nasal discharge Face and Sinus: face symmetric Mouth: oral mucosae normal, tongue normal, oropharynx normal and moist mucous membranes Teeth and gingiva: dentition normal Throat: posterior oropharynx normal, tonsils normal and uvula midline Eyes General: appearance normal, both eyes and all related structures Eyelids: eyelids normal Conjunctivae: conjunctivae normal Pupils: PERRL, normal by confrontation and accommodation normal EOM: EOM intact bilaterally Neck Neck: normal visual inspection, trachea midline and no JVD JVD: +5 Carotids: normal carotid upstroke and bounding pulses Chest Chest inspection: normal inspection of the chest, symmetric chest movement and normal respiratory effort Auscultation: Bilateral: Clear to Auscultation Cardio Palpation: normal PMI Rate: regular rate Rhythm: regular rhythm Heart sounds: S1 normal, S2 normal and normal, physiologic split S2; negative rub, gallop or murmur GI GI: normal to inspection, soft, no hepatosplenomegaly and bowel sounds present Neuro General: alert, awake, oriented x3, no focal sensory deficit, gait normal and moves all extremities Skin Skin: no rashes or lesions noted Extremities Pulses: Normal: Right Femoral Pulse, Left Femoral Pulse, Right Dorsalis Pedis Pulse, Left Dorsalis Pedis Pulse, Right Posterior Tibial Pulse, Left Posterior Tibial Pulse, Right Radial Pulse, Left Radial Pulse Lower Extremity Edema: None: Bilateral Musculoskel Musculoskeletal: No joint tenderness Psych Psychological: normal affect Assessment AND Plan 1. Acute on chronic diastolic (congestive) heart failure I50.33 Plan She does have evidence of chronic diastolic heart failure his last echocardiogram demonstrated preserved ejection fraction my recommendation will be to keep him on the 40 mg of Lasix watch his diet as well as his fluid intake and salt intake. No other changes will be made. 2. Chronic atrial fibrillation I48.2 On coumadin, managed by PCP Plan He does have a history of atrial fibrillation with a controlled ventricular response rate on the beta-karyn he will also remain on the Coumadin maintaining an INR of 2-3. As noted above his ejection fraction was noted to be preserved 3. H/O aortic valve replacement Z95.2 aortic valve replacement with #25 Pietro-Sheppard valve. 02/24/2016 Plan His bioprosthetic aortic valve appears to be functioning quite well with adequate gradients. No changes will be made 4. H/O coronary artery bypass surgery Z95.1 Redo CABG x 3 SVG-LAD, SVG OM of Cx, SVG- PDA of RCA and aortic valve replacement with #25 Pietro-Sheppard valve. 02/24/2016 CABG x 4 [place]-D1, SVG-Distal LAD, SVG-Lat CX, SVG-RCA 12/15/98 Plan He is status post redo coronary bypass surgery during this last hospitalization there was no evidence of troponin leak and therefore I would recommend that we continue him on the beta-karyn and the statin therapy. 5. Pure hypercholesterolemia E78.00; E78.0 Plan He remains on a high intensity statin his most recent lipid profile demonstrated a total cholesterol of 116, LDL of 42 and HDL of 30. He will continue with aggressive risk factor modification. 6. Essential hypertension I10 Plan His blood pressure continues to be under decent control and my recommendation will be to remain on the same medications. Weight loss has been emphasized. No other changes will be made. Thank you for allowing me to participate in the care of your patient. 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) Coding Level of Care Code Off vis,est,level 5 Diagnoses Acute on chronic diastolic (congestive) heart failure I50.33 Chronic atrial fibrillation I48.2 H/O aortic valve replacement Z95.2 H/O coronary artery bypass surgery Z95.1 Pure hypercholesterolemia E78.00; E78.0 Hyperlipidemia type: pure hypercholesterolemia Essential hypertension I10 Hypertension type: essential hypertension Coding Level of Care Code Off vis,est,level 5 Diagnoses Acute on chronic diastolic (congestive) heart failure I50.33 Chronic atrial fibrillation I48.2 H/O aortic valve replacement Z95.2 H/O coronary artery bypass surgery Z95.1 Pure hypercholesterolemia E78.00; E78.0 Hyperlipidemia type: pure hypercholesterolemia Essential hypertension I10 Hypertension type: essential hypertension 03/08/18 1358 <Electronically signed by Christian Shook MD> Date Christian Coburn Signature: Date (if applicable) CC: Jennifer Velazquez MD BMP Collected: 02/10/2018 Status: F Source: [place] 11:52 AM [facility] REPOSITORY TYPE CODE TESTS RESULT OUT OF REFERENCE UNITS RANGE LAB 1547-9 83-110 mg/dL GLUCOSE High 318 LAB NA(LOINC) 136-146 mEq/L Low Sodium Level 134 LAB K(LOINC) 3.5-5.1 mEq/L Potassium High Level 5.3 LAB CL(LOINC) 98-107 mEq/L Chloride 103 LAB CO2(LOINC) 23-31 mEq/L CO2 23 LAB EBAL(LOINC mEq/L ) Electrolyte Balance 8.0 LAB BUN(LOINC) 7.0-18.0 mg/dL BUN High 75.9 LAB CRE(LOINC) 0.6-1.2 mg/dL Creatinine High Lvl (s) 1.7 LAB BC(LOINC) 7-27 ratio High BUN/Creatinine 45 Ratio LAB CA(LOINC) 8.4-10.2 mg/dL Calcium Lvl 8.8 Performed By: #### BMP, GFR, CBC, ADIFF, ANEU #### [place] [address] .GFR Collected: 02/10/2018 Status: F Source: [place] 11:52 AM [facility] REPOSITORY TYPE CODE TESTS RESULT OUT OF REFERENCE UNITS RANGE LAB GFRAA(LOINC ml/min/1.73 ) sqm GFR 47 [place] Result Comment: GFR Population mean for , Non- Americans Ages 20-29 = 116 mL/min/1.73 sq.m. Ages 30-39 = 107 mL/min/1.73 sq.m. Ages 40-49 = 99 mL/min/1.73 sq.m. Ages 50-59 = 93 mL/min/1.73 sq.m. Ages 60-69 = 85 mL/min/1.73 sq.m. Ages 70+ = 75 mL/min/1.73 sq.m. Chronic Kidney Disease: Less than 60 mL/min/1.73 square meters End Stage Renal Disease: Less than 15 mL/min/1.73 square meters LAB GFRNO(LOINC) ml/min/1.73sqm GFR Non- 39 Result Comment: GFR Population mean for , Non- Americans Ages 20-29 = 116 mL/min/1.73 sq.m. Ages 30-39 = 107 mL/min/1.73 sq.m. Ages 40-49 = 99 mL/min/1.73 sq.m. Ages 50-59 = 93 mL/min/1.73 sq.m. Ages 60-69 = 85 mL/min/1.73 sq.m. Ages 70+ = 75 mL/min/1.73 sq.m. Chronic Kidney Disease: Less than 60 mL/min/1.73 square meters End Stage Renal Disease: Less than 15 mL/min/1.73 square meters Performed By: #### BMP, GFR, CBC, ADIFF, BRISSA #### [address] [address] CBC Collected: 02/10/2018 Status: F Source: [place] 11:[facility] AM [facility] REPOSITORY TYPE CODE TESTS RESULT OUT OF REFERENCE UNITS RANGE LAB WBC(LOINC) 4.60-10.80 10 3/mcL High WBC 14.40 LAB RBCCT(LOINC 4.04-6.13 10 6/mcL ) Low RBC 3.80 LAB HGB(LOINC) 14.0-18.0 G/dL Low Hgb 11.3 LAB HCT(LOINC) 42.0-52.0 % Low Hct 35.1 LAB MCV(LOINC) 80.0-94.0 fL MCV 92.2 LAB MCH(LOINC) 27.0-31.2 pg MCH 29.7 LAB MCHC(LOINC) 31.8-35.4 G/dL MCHC 32.2 LAB RDW(LOINC) 11.5-14.5 % High RDW 14.8 LAB PLT(LOINC) 130-400 10 3/mcL Platelet 170 LAB MPV(LOINC) 7.4-10.4 fL MPV 8.7 Performed By: #### BMP, GFR, CBC, ADIFF, ANEU #### [address] [address] .AUTO DIFF Collected: 02/10/2018 Status: F Source: [facility] 11:52 AM [facility] REPOSITORY TYPE CODE TESTS RESULT OUT OF REFERENCE UNITS RANGE LAB BLAS(LOINC) 37.0-80.0 % High Neutrophil % 88.0 LAB LYM(LOINC) 10.0-50.0 % Low Lymphocyte % 9.3 LAB MON(LOINC) 1.7-13.0 % Monocyte % 2.6 LAB EO(LOINC) 0.0-7.0 % Eosinophil % 0.0 LAB BAS(LOINC) 0.0-2.5 % Basophil % 0.1 LAB ABLYM(LOIN 0.77-3.85 10 3/mcL C) Lymphocyte, 1.30 Absolute LAB NILE(LOINC 0.15-1.00 10 3/mcL ) Monocyte, 0.40 Absolute LAB AEOS(LOINC 0.00-0.40 10 3/mcL ) Eosinophil, 0.00 Absolute LAB ABAS(LOINC 0.00-0.19 10 3/mcL ) Basophil, 0.00 Absolute Performed By: #### BMP, GFR, CBC, ADIFF, ANEU #### [address] [address] .NEUABS Collected: 02/10/2018 Status: F Source: [facility] 11:52 AM [facility] REPOSITORY TYPE CODE TESTS RESULT OUT OF REFERENCE UNITS RANGE LAB ANEU(LOINC) 2.85-6.16 10 3/mcL High Neutrophil, 12.70 Absolute Performed By: #### BMP, GFR, CBC, ADIFF, ANEU #### [address] [address] DISCHARGE SUMMARY Observed: 02/08/2018 Status: F Source: [place] 3:33 PM [facility] REPOSITORY [facility] Medical Records Department [address] [place] [address] Discharge Summary 02/08/18 1139 MR#: [id number] Acct: [id number] Name: JODIE SILVERIO Rep #: [id number] : 1940 77 From: James Camarillo MD PCP: Jennifer Velazquez MD Status: DIS IN Y Location: [facility] [id number] Discharge Date and Diagnosis Date of Admission: 02/04/18 Date of Discharge: 02/08/18 - Primary Discharge Diagnosis Active and Suspected Problems Hypoxemia (Acute) - Secondary Discharge Diagnosis Chronic Problems Left bundle branch block (Chronic) Chronic kidney disease (Chronic) Encounter for venous access device care (Chronic) Gout (Chronic) Sleep apnea (Chronic) Cholecystitis (Chronic) Seizure (Chronic) Hypomagnesemia (Chronic) DM type 2 (diabetes mellitus, type 2) (Chronic) Venous insufficiency of both lower extremities (Chronic) Hyperlipemia (Chronic) Aortic valve replaced (Chronic) January 2016 at [facility], pig valve Chronic renal failure, stage 3 (moderate) (Chronic) Morbid obesity with BMI of 45.0-49.9, adult (Chronic) Anemia (Chronic) CAD (coronary artery disease) (Chronic) Hx of CABG (Chronic) CABG in 1993 and then again in January of 2016 at [facility] along with an AVR HTN (hypertension) (Chronic) Hospital Course and Treatment Imaging Results: Clinical Impression(s) from Imaging Studies Chest X-Ray 02/04/18 04:29 IMPRESSION: Degenerative changes, as described above. No demonstrated acute cardiopulmonary process. Electronically Signed: Bela Garcia MD at 5:48 EST Tel , Service support , Chest X-Ray 02/05/18 05:55 IMPRESSION: Degenerative changes, as described above. No demonstrated acute cardiopulmonary process. Electronically Signed: Bela Garcia MD at 6:28 EDT Tel , Service support , Operations: None Summary of Care Provided: Patient is a 77-year-old gentleman with multiple comorbidities including CAD status post CABG obstructive sleep apnea on CPAP who presents with progressive shortness of breath in addition to a productive cough and assessment of acute hypoxic respiratory failure secondary to combination of COPD exacerbation as well as acute on chronic diastolic heart failure was made admitted to a monitored bed for subsequent management 1. Acute hypoxic respiratory failure secondary to combination of COPD and acute on chronic diastolic heart failure patient has been placed on supplemental oxygen titrated to keep oxygen saturation greater than 90 patient was assessed for home oxygen need prior to discharge 2. Acute COPD exacerbation management systemic steroid, (dose adjusted), p.o. Levaquin and bronchodilator treatment in addition to supplemental oxygen 2. Acute on chronic diastolic heart failure echo ordered Normal LV size. Moderate concentric left ventricular hypertrophy. Left ventricular systolic function is normal. The estimated ejection fraction is 60 %. Stable appearing bioprosthetic aortic valve apparatus. Mean aortic valve gradient 9 mmHg. Was discharged home on 40 mg of Lasix 4. CAD status post CABG EKG on admission demonstrated left bundle branch block which is old troponin 0 0.02 5. Obesity hypoventilation syndrome 6. Obstructive sleep apnea patient is on CPAP at night 7. Diabetes mellitus type II with complications including chronic kidney disease stage III: Patient is on insulin did continue in addition to Accu-Cheks before meals and at bedtime with sliding scale coverage 8. History of aortic valve replacement patient is on systemic anticoagulation with Coumadin with therapeutic INR not 9. Seizure disorder patient is on Keppra did continue 10. Morbid obesity with BMI of 46 weight loss recommended; patient was also instructed to follow-up with PCP for possible referral for gastric bypass surgery 11. Chronic kidney disease stage III patient kidney function appears to be close to his baseline. Patient was seen in consultation by nephrology notes and recommendations reviewed 12. Degenerative joint disease 13. DVT prophylaxis on Coumadin no need for additional measures 14. DARRYL ruled out 15. Community-acquired pneumonia ruled out 16. Physical deconditioning requested for PT OT eval and social media director to assist with discharge planning Discharge Diet: 8 Cup Fluid Restriciton Home Medications: Medications to take at Discharge Aspirin [Adult Low Dose Aspirin EC] 81 mg PO DAILY 07/11/16 Atorvastatin Calcium [Lipitor] 40 mg PO QHS 07/11/16 Metoprolol Tartrate [Lopressor (beta karyn)] 12.5 mg PO BID 07/11/16 Multivitamin [Daily Multiple Vitamin] 1 each PO DAILY 07/11/16 Pantoprazole Sodium [Protonix] 20 mg PO DAILY 07/11/16 Insulin Regular, Human [Novolin R] 25 unit SC BID 07/24/16 Insulin NPH Human Isophane [Novolin N] 25 units SQ DAILY 08/10/16 Allopurinol [Zyloprim] 150 mg PO DAILYCM #15 tablet 08/27/16 Levetiracetam [Keppra] 500 mg PO BID #60 tablet 08/27/16 Warfarin [Coumadin] 2.5 mg PO DAILY 10/06/16 Cholecalciferol (VIT D3) [Vitamin D3] 1,000 unit PO DAILY 10/26/16 Isosorbide Mononitrate [Isosorbide Mononitrate ER] 60 mg PO DAILY 01/10/18 Sertraline HCl [Zoloft] 25 mg PO DAILY 01/10/18 Iron Polysaccharide Complex [Ferrex 150] 150 mg PO QODAY 02/04/18 Albuterol Inhaler [Ventolin Hfa] 2 puff INHALATION Q4H PRN PRN #1 inhaler 02/08/18 Doxycycline 100 mg PO BID #14 cap 02/08/18 Furosemide 40 mg PO DAILY #30 tab 02/08/18 Guaifenesin [Mucinex] 1,200 mg PO BID #14 tab 02/08/18 Prednisone 20 mg PO BID #10 tab 02/08/18 Following Prescrptions Were Given to Patient: Albuterol Inhaler [Ventolin Hfa] 2 puff INHALATION Q4H PRN PRN #1 inhaler PRN Reason: Dyspnea/Wheezing/Sob Doxycycline 100 mg PO BID #14 cap Furosemide 40 mg PO DAILY #30 tab Guaifenesin [Mucinex] 1,200 mg PO BID #14 tab Prednisone 20 mg PO BID #10 tab Primary Care Physician: Jennifer Velazquez MD [Primary Care Provider] - Please follow up with your Primary Care Physician in: IN 2- 3 DAYS FOR REPEAT INR CHECK Please Follow Up With: Christian Shook MD When: IN 2-4 WEEKS Please Follow Up With: Maite Javier MD When: IN 1-2 WEEKS Disposition: Home Minutes spent on discharge:: 35 Patient Condition:: Stable Meaningful Use Info Meaningful Use Diagnoses (Choose all that apply): CHF - AMI Reason Beta Karyn not ordered:: Worsening renal disease - CHF DOINNA/ARB ordered at discharge?: No Reason DIONNA/ARB not ordered?: Worsening renal disease Documented LVEF (%): 60 Code Visit Inpatient E AND M: [id number] Disch Hosp 02/08/18 1533 <Electronically signed by James Camarillo MD> Date James Camarillo MD Cosigner Signature (if applicable): Date CC: Jennifer Velazquez MD; James Camarillo MD Signed BEDSIDE GLUCOSE Collected: 02/08/2018 Status: F Source: [place] 11:44 AM [facility] REPOSITORY TYPE CODE TESTS RESULT OUT OF REFERENCE UNITS RANGE LAB L501.080 70-110 mg/dL High BEDSIDE GLU 123 Result Comment: MANAGEMENT OF PATIENT CARE PER NURSING PROTOCOL Performed By: #### L501.080 #### [facility] Point of Care [address] [facility] [place] [address] DISCHARGE INSTRUCTION Observed: 02/08/2018 Status: F Source: [place] 11:38 AM [facility] REPOSITORY [facility] Medical Records Department [address] [place] [address] Instructions for Home/Discharge Instructions 02/08/18 1134 MR#: [id number] Acct: [id number] Name: JODIE SILVERIO Rep #: [id number] : 1940 77 From: James Camarillo MD PCP: Jennifer Velazquez MD Status: ADM IN - Discharge Diagnoses Current Active Problems: Current Active and Chronic Problems Left bundle branch block (Acute) Hypoxemia (Acute) Chronic kidney disease (Acute) You will use the following diet at home:: Fluid restricted (specify 2000 mls, 1500 mls) - 2000 Your food should be the consistency of: Regular Allergies/Adverse Reactions: Allergies Penicillins [PCN] Allergy (Verified 02/04/18 04:22) Swelling Medications to take at Discharge Aspirin [Adult Low Dose Aspirin EC] 81 mg PO DAILY 07/11/16 Atorvastatin Calcium [Lipitor] 40 mg PO QHS 07/11/16 Metoprolol Tartrate [Lopressor (beta karyn)] 12.5 mg PO BID 07/11/16 Multivitamin [Daily Multiple Vitamin] 1 each PO DAILY 07/11/16 Pantoprazole Sodium [Protonix] 20 mg PO DAILY 07/11/16 Insulin Regular, Human [Novolin R] 25 unit SC BID 07/24/16 Insulin NPH Human Isophane [Novolin N] 25 units SQ DAILY 08/10/16 Allopurinol [Zyloprim] 150 mg PO DAILYCM #15 tablet 08/27/16 Levetiracetam [Keppra] 500 mg PO BID #60 tablet 08/27/16 Warfarin [Coumadin] 2.5 mg PO DAILY 10/06/16 Cholecalciferol (VIT D3) [Vitamin D3] 1,000 unit PO DAILY 10/26/16 Isosorbide Mononitrate [Isosorbide Mononitrate ER] 60 mg PO DAILY 01/10/18 Sertraline HCl [Zoloft] 25 mg PO DAILY 01/10/18 Iron Polysaccharide Complex [Ferrex 150] 150 mg PO QODAY 02/04/18 Albuterol Inhaler [Ventolin Hfa] 2 puff INHALATION Q4H PRN PRN #1 inhaler 02/08/18 Doxycycline 100 mg PO BID #14 cap 02/08/18 Furosemide 40 mg PO DAILY #30 tab 02/08/18 Guaifenesin [Mucinex] 1,200 mg PO BID #14 tab 02/08/18 Prednisone 20 mg PO BID #10 tab 02/08/18 The following prescriptions were given: Albuterol Inhaler [Ventolin Hfa] 2 puff INHALATION Q4H PRN PRN #1 inhaler PRN Reason: Dyspnea/Wheezing/Sob Doxycycline 100 mg PO BID #14 cap Furosemide 40 mg PO DAILY #30 tab Guaifenesin [Mucinex] 1,200 mg PO BID #14 tab Prednisone 20 mg PO BID #10 tab Primary Care Physician: Jennifer Velazquez MD [Primary Care Provider] - Please follow up with your Primary Care Physician in: IN 2- 3 DAYS FOR REPEAT INR CHECK Please Follow Up With: Christian Shook MD When: IN 2-4 WEEKS Please Follow Up With: Maite Javier MD When: IN 1-2 WEEKS Proposed Discharge Date: 02/08/18 02/08/18 1138 <Electronically signed by James Camarillo MD> Date James Camarillo MD CC: Jennifer Velazquez MD; Maite Javier MD BEDSIDE GLUCOSE Collected: 02/08/2018 Status: F Source: [place] 6:46 AM [facility] REPOSITORY TYPE CODE TESTS RESULT OUT OF REFERENCE UNITS RANGE LAB L501.080 70-110 mg/dL High BEDSIDE GLU 138 Result Comment: MANAGEMENT OF PATIENT CARE PER NURSING PROTOCOL Performed By: #### L501.080 #### [facility] Point of Care [address] [place], [place] [address] CBC-COMPLETE BLOOD CNT Collected: 02/08/2018 Status: F Source: [place] NO DIFF 5:40 AM [facility] REPOSITORY TYPE CODE TESTS RESULT OUT OF RANGE REFERENCE UNITS LAB L100.1000 4.4-11.0 K/mm3 Normal WBC 11.0 LAB L100.1200 4.6-6.2 M/mm3 Low RBC 3.47 LAB L100.1300 13.0-16.5 g/dl Low HGB 10.7 LAB L100.1400 40-54 % Low HCT 32.9 LAB L100.1500 80-94 fL High MCV 94.8 LAB L100.1600 27.0-32.0 pg Normal MCH 30.8 LAB L100.1700 32-36 g/gl Normal MCHC 32.5 LAB L100.1810 11.6-14.6 % Normal RDW CV 14.2 LAB L100.1820 35.1-43.9 fl High RDW SD 46.6 LAB L100.1900 150-450 K/mm3 Normal PLT 157 LAB L100.2000 6.2-12.0 fl Normal MPV 10.3 Performed By: #### L100.0500 #### [facility] [address] [place], [place], [id number] PROTHROMBIN TIME W/INR Collected: 02/08/2018 Status: F Source: [place] 5:40 AM [facility] REPOSITORY TYPE CODE TESTS RESULT OUT OF REFERENCE UNITS RANGE LAB L300.4150 11.7-14.9 SECONDS High PROTIME 41.3 LAB L300.4200 High alert INR 4.3 Result Comment: CRITICAL VALUE VERIFIED. CALLED TO JARED MCCANN 02/08/18 0636 Melissa Flores. RESULTS READ BACK BY SAME . Performed By: #### L300.3900 #### [facility] [address] [place], [address] BASIC METABOLIC Collected: 02/08/2018 Status: F Source: [place] PROFILE (BMP) 5:40 AM [facility] REPOSITORY TYPE CODE TESTS RESULT OUT OF RANGE REFERENCE UNITS LAB L501.0100 74-106 mg/dL High GLU 130 Result Comment: Fasting Glucose result greater than or equal to 126 mg/dL suggests DIABETES MELLITUS per A.D.A. criteria. Please note revised GLUCOSE reference range effective 2017. LAB L501.1000 7-18 mg/dL High BUN 69 LAB L501.1100 0.70-1.30 mg/dL High CREAT,SERUM 2.00 Result Comment: The validity of the calculated GFR AND GFRAA in patients over 70 years has not been determined. Clinical correlation is essential. LAB L501.1110 >60 mL/min Low EST GFR 35 Result Comment: Non- GFR Calc LAB L501.1115 >60 mL/min Low EST GFR - AA 42 Result Comment: GFR Calc LAB L501.1255 ml/min Normal Estimated CRCL 27.33 LAB L501.1300 10-20 RATIO High BUN/CRE 34.5 LAB L501.2200 8.5-10 mg/dL Normal .1 CA 8.8 LAB L501.5300 136-14 mmol/L Normal 5 NA 140 LAB L501.5600 3.5-5. mmol/L Normal 1 K 4.6 LAB L501.5900 98-107 mmol/L High CL 108 LAB L501.6100 21.0-3 mmol/L Normal 2.0 CO2 23.0 LAB L501.6200 5-15 Normal GAP 9 Performed By: #### L500.2500 #### [facility] [address] [place], [place], [address] BEDSIDE GLUCOSE Collected: 02/07/2018 Status: F Source: [place] 9:09 PM [facility] REPOSITORY TYPE CODE TESTS RESULT OUT OF REFERENCE UNITS RANGE LAB L501.080 70-110 mg/dL High BEDSIDE GLU 210 Result Comment: MANAGEMENT OF PATIENT CARE PER NURSING PROTOCOL Performed By: #### L501.080 #### [facility] Point of Care [address] [place] [address] BEDSIDE GLUCOSE Collected: 02/07/2018 Status: F Source: [place] 4:15 PM [facility] REPOSITORY TYPE CODE TESTS RESULT OUT OF REFERENCE UNITS RANGE LAB L501.080 70-110 mg/dL High BEDSIDE GLU 228 Result Comment: MANAGEMENT OF PATIENT CARE PER NURSING PROTOCOL Performed By: #### L501.080 #### [facility] Point of Care [address] [place] [address] BEDSIDE GLUCOSE Collected: 02/07/2018 Status: F Source: [place] 11:27 AM [facility] REPOSITORY TYPE CODE TESTS RESULT OUT OF REFERENCE UNITS RANGE LAB L501.080 70-110 mg/dL High BEDSIDE GLU 310 Result Comment: MANAGEMENT OF PATIENT CARE PER NURSING PROTOCOL Performed By: #### L501.080 #### [facility] Point of Care [address] [place] [address] BEDSIDE GLUCOSE Collected: 02/07/2018 Status: F Source: [place] 6:43 AM [facility] REPOSITORY TYPE CODE TESTS RESULT OUT OF REFERENCE UNITS RANGE LAB L501.080 70-110 mg/dL High BEDSIDE GLU 302 Result Comment: MANAGEMENT OF PATIENT CARE PER NURSING PROTOCOL Performed By: #### L501.080 #### [facility] Point of Care [address] [place] [address] CBC-COMPLETE BLOOD CNT Collected: 02/07/2018 Status: F Source: [place] NO DIFF 5:57 AM [facility] REPOSITORY TYPE CODE TESTS RESULT OUT OF RANGE REFERENCE UNITS LAB L100.1000 4.4-11.0 K/mm3 High WBC 15.8 LAB L100.1200 4.6-6.2 M/mm3 Low RBC 3.49 LAB L100.1300 13.0-16.5 g/dl Low HGB 10.5 LAB L100.1400 40-54 % Low HCT 32.5 LAB L100.1500 80-94 fL Normal MCV 93.1 LAB L100.1600 27.0-32.0 pg Normal MCH 30.1 LAB L100.1700 32-36 g/gl Normal MCHC 32.3 LAB L100.1810 11.6-14.6 % Normal RDW CV 14.5 LAB L100.1820 35.1-43.9 fl High RDW SD 49.0 LAB L100.1900 150-450 K/mm3 Normal PLT 163 LAB L100.2000 6.2-12.0 fl Normal MPV 10.1 Performed By: #### L100.0500 #### [facility] [address] [place], [address] PROTHROMBIN TIME W/INR Collected: 02/07/2018 Status: F Source: [place] 5:57 AM [facility] REPOSITORY TYPE CODE TESTS RESULT OUT OF RANGE REFERENCE UNITS LAB L300.4150 11.7-14.9 SECONDS High PROTIME 32.2 LAB L300.4200 Normal INR 3.1 Performed By: #### L300.3900 #### [facility] [address] [facility] [place], [address] BASIC METABOLIC Collected: 02/07/2018 Status: F Source: [place] PROFILE (BMP) 5:57 AM [facility] REPOSITORY TYPE CODE TESTS RESULT OUT OF RANGE REFERENCE UNITS LAB L501.0100 74-106 mg/dL High GLU 288 Result Comment: Glucose result greater than or equal to 200 mg/dL suggests DIABETES MELLITUS per A.D.A. criteria. Please note revised GLUCOSE reference range effective 2017. LAB L501.1000 7-18 mg/dL High BUN 67 LAB L501.1100 0.70-1.30 mg/dL High CREAT,SERUM 2.17 Result Comment: The validity of the calculated GFR AND GFRAA in patients over 70 years has not been determined. Clinical correlation is essential. LAB L501.1110 >60 mL/min Low EST GFR 32 Result Comment: Non- GFR Calc LAB L501.1115 >60 mL/min Low EST GFR - AA 38 Result Comment: GFR Calc LAB L501.1255 ml/min Normal Estimated CRCL 25.19 LAB L501.1300 10-20 RATIO High BUN/CRE 30.9 LAB L501.2200 8.5-10 mg/dL Normal .1 CA 8.8 LAB L501.5300 136-14 mmol/L Low 5 NA 134 LAB L501.5600 3.5-5. mmol/L Normal 1 K 5.0 LAB L501.5900 98-107 mmol/L Normal CL 103 LAB L501.6100 21.0-3 mmol/L Normal 2.0 CO2 22.0 LAB L501.6200 5-15 Normal GAP 9 Performed By: #### L500.2500, L501.5200 #### [facility] [address] [facility] [address] MAGNESIUM Collected: 02/07/2018 Status: F Source: [place] 5:57 AM [facility] REPOSITORY TYPE CODE TESTS RESULT OUT OF RANGE REFERENCE UNITS LAB L501.5200 1.6-2.6 mg/dL Normal MG 2.0 Result Comment: Please note revised Magnesium reference range effective 2017. Performed By: #### L500.2500, L501.5200 #### [facility] [address] [facility] [address] BEDSIDE GLUCOSE Collected: 02/06/2018 Status: F Source: [place] 9:04 PM [facility] REPOSITORY TYPE CODE TESTS RESULT OUT OF REFERENCE UNITS RANGE LAB L501.080 70-110 mg/dL High BEDSIDE GLU 398 Result Comment: MANAGEMENT OF PATIENT CARE PER NURSING PROTOCOL Performed By: #### L501.080 #### [facility] Point of Care [address] [place] [address] BEDSIDE GLUCOSE Collected: 02/06/2018 Status: F Source: [place] 4:46 PM [facility] REPOSITORY TYPE CODE TESTS RESULT OUT OF REFERENCE UNITS RANGE LAB L501.080 70-110 mg/dL High BEDSIDE GLU 377 Result Comment: MANAGEMENT OF PATIENT CARE PER NURSING PROTOCOL Performed By: #### L501.080 #### [facility] Point of Care [address] [place] [address] 12 LEAD ELECTROCARDIOGRAM Observed: 02/06/2018 Status: F Source: [place] 3:00 PM [facility] REPOSITORY [facility] Cardiovascular Services [address] [place] [address] 12 Lead EKG 02/04/18 0459 MR#: [id number] Acct: [id number] Name: JODIE SILVERIO Rep #: [id number] : 1940 77 From: Christian Shook MD Attending Dr: James Camarillo MD Status: ADM IN Ordering Dr: Oscar Brown DO Date: 02/04/18 Location: [facility] Sex: M C Admitted: 02/04/18 Test Reason : SOB Blood Pressure : / mmHG Vent. Rate : 100 BPM Atrial Rate : 079 BPM P-R Int : 000 ms QRS Dur : 136 ms QT Int : 392 ms P-R-T Axes : 000 -17 139 degrees QTc Int : 505 ms Sinus tachycardia with occasional Premature ventricular complexes Left bundle branch block Abnormal ECG Confirmed by CHRISTIAN SHOOK MD ([id number]), clinical editor LEX CARUSO ([id number]) on 02/06/2018 3:00:08 PM Referred By: TL Confirmed By:CHRISTIAN SHOOK MD 02/06/18 1500 Date Christian Shook MD CC: Jennifer Velazquez MD; Oscar Brown Signed ECHOCARDIOGRAM COMPLETE Observed: 02/06/2018 Status: F Source: [place] 1:11 PM [facility] REPOSITORY [facility] Cardiovascular Services [address] [place] [address] Echo Complete 02/06/18 0724 MR#: [id number] Acct: [id number] Name: JODIE SILVERIO Rep #: [id number] : 1940 77 From: Christian Shook MD Attending Dr: James Camarillo MD Status: ADM IN Ordering Dr: Rigoberto Ashley MD Date: 02/04/18 Location: [facility] Sex: M C Admitted: 02/04/18 Reason For Study: CHF Procedure This was a 2D Doppler, Color Flow transthoracic echocardiogram. Exam performed portable in patient room. Left Ventricle Normal LV size. Moderate concentric left ventricular hypertrophy. Left ventricular systolic function is normal. The estimated ejection fraction is 60 %. No regional wall motion abnormalities noted. Mitral Valve There is moderate mitral annular calcification. Tricuspid Valve Normal tricuspid valve. Mild (1+) tricuspid valve insufficiency. Pulmonary artery systolic pressure is 34 mmHg. Aortic Valve Peak aortic valve gradient 15 mmHg. Mean aortic valve gradient 9 mmHg. Stable appearing bioprosthetic aortic valve apparatus. Pulmonic Valve The pulmonic valve is not well visualized. Great Vessels Normal aortic root. Pericardium/Pleural No pericardial effusion. Medication Definity0.4ml given slow IV push to enhance endocardial definition. MMode/2D Measurements AND Calculations LVIDd: 4.1 cm IVSd: 1.3 cm LVOT diam: 2.1 cm LVIDs: 3.2 cm LVPWd: 1.6 cm LVOT area: 3.4 cm2 FS: 23.5 % Ao root diam: 2.9 cm LA dimension: 5.7 cm Doppler Measurements AND Calculations Lat Peak E' Lev: 9.8 cm/sec Med Peak E' Lev: 4.8 cm/sec MV V2 max: 186.6 cm/sec MV max P.9 mmHg MV V2 mean: 126.8 cm/sec MV mean P.5 mmHg MV V2 VTI: 35.1 cm MVA(VTI): 2.5 cm2 Ao V2 max: 195.0 cm/sec LV V1 max: 130.0 cm/sec SV(LVOT): 89.4 ml Ao max P.2 mmHg LV V1 max P.8 mmHg Ao V2 mean: 142.1 cm/sec LV V1 mean P.1 mmHg Ao mean P.8 mmHg LV V1 mean: 96.7 cm/sec Ao V2 VTI: 36.0 cm LV V1 VTI: 26.6 cm MICHAEL(I,D): 2.5 cm2 MICHAEL(V,D): 2.2 cm2 PA V2 max: 168.0 cm/sec TR max lev: 272.3 cm/sec TR max P.7 mmHg Interpretation Summary Normal LV size. Moderate concentric left ventricular hypertrophy. Left ventricular systolic function is normal. The estimated ejection fraction is 60 %. Stable appearing bioprosthetic aortic valve apparatus. Mean aortic valve gradient 9 mmHg. Ordering Physician: Rigoberto Ashley Referring Physician: Sonny Love Performed By: Jenni Brown RDCS 02/06/181310 Date Christian Shook MD CC: Jennifer Velazquez MD; Rigoberto Ashley MD Date Dictated: 02/06/18 0724 Date Transcribed: 02/06/181310 Seed Cone Picker: Signed BEDSIDE GLUCOSE Collected: 02/06/2018 Status: F Source: [place] 11:14 AM [facility] REPOSITORY TYPE CODE TESTS RESULT OUT OF REFERENCE UNITS RANGE LAB L501.080 70-110 mg/dL High BEDSIDE GLU 400 Result Comment: MANAGEMENT OF PATIENT CARE PER NURSING PROTOCOL Performed By: #### L501.080 #### [facility] Point of Care [address] [place] [address] BEDSIDE GLUCOSE Collected: 02/06/2018 Status: F Source: [place] 6:38 AM [facility] REPOSITORY TYPE CODE TESTS RESULT OUT OF REFERENCE UNITS RANGE LAB L501.080 70-110 mg/dL High BEDSIDE GLU 302 Result Comment: MANAGEMENT OF PATIENT CARE PER NURSING PROTOCOL Performed By: #### L501.080 #### [facility] Point of Care [address] [place] [address] RENAL PROFILE Collected: 02/06/2018 Status: F Source: [place] 5:10 AM [facility] REPOSITORY TYPE CODE TESTS RESULT OUT OF RANGE REFERENCE UNITS LAB L501.0100 74-106 mg/dL High GLU 300 Result Comment: Glucose result greater than or equal to 200 mg/dL suggests DIABETES MELLITUS per A.D.A. criteria. Please note revised GLUCOSE reference range effective 2017. LAB L501.1000 7-18 mg/dL High BUN 57 LAB L501.1100 0.70-1.30 mg/dL High CREAT,SERUM 2.21 Result Comment: The validity of the calculated GFR AND GFRAA in patients over 70 years has not been determined. Clinical correlation is essential. LAB L501.1110 >60 mL/min Low EST GFR 31 Result Comment: Non- GFR Calc LAB L501.1115 >60 mL/min Low EST GFR - AA 37 Result Comment: GFR Calc LAB L501.1255 ml/min Normal Estimated CRCL 24.74 LAB L501.1300 10-20 RATIO High BUN/CRE 25.8 LAB L501.1800 3.2-5. g/dL Low 0 ALB 3.0 LAB L501.2200 8.5-10 mg/dL Normal .1 CA 8.6 LAB L501.2300 2.5-4. mg/dL Normal 9 PHOS 3.1 LAB L501.5300 136-14 mmol/L Low 5 NA 133 LAB L501.5600 3.5-5. mmol/L Normal 1 K 5.0 LAB L501.5900 98-107 mmol/L Normal CL 101 LAB L501.6100 21.0-3 mmol/L Normal 2.0 CO2 21.0 Performed By: #### L500.3600, L501.5200 #### [facility] [address] [place], [address] MAGNESIUM Collected: 02/06/2018 Status: F Source: [place] 5:10 AM [facility] REPOSITORY TYPE CODE TESTS RESULT OUT OF RANGE REFERENCE UNITS LAB L501.5200 1.6-2.6 mg/dL Normal MG 1.6 Result Comment: Please note revised Magnesium reference range effective 2017. Performed By: #### L500.3600, L501.5200 #### [facility] [address] [place], [address] PROTHROMBIN TIME W/INR Collected: 02/06/2018 Status: F Source: [place] 5:10 AM [facility] REPOSITORY TYPE CODE TESTS RESULT OUT OF RANGE REFERENCE UNITS LAB L300.4150 11.7-14.9 SECONDS High PROTIME 25.2 LAB L300.4200 Normal INR 2.3 Performed By: #### L300.3900 #### [facility] [address] [place], [address] BEDSIDE GLUCOSE Collected: 02/05/2018 Status: F Source: [place] 9:42 PM [facility] REPOSITORY TYPE CODE TESTS RESULT OUT OF REFERENCE UNITS RANGE LAB L501.080 70-110 mg/dL High BEDSIDE GLU 354 Result Comment: MANAGEMENT OF PATIENT CARE PER NURSING PROTOCOL Performed By: #### L501.080 #### [facility] Point of Care [address] [place] [address] BEDSIDE GLUCOSE Collected: 02/05/2018 Status: F Source: [place] 5:00 PM [facility] REPOSITORY TYPE CODE TESTS RESULT OUT OF REFERENCE UNITS RANGE LAB L501.080 70-110 mg/dL High BEDSIDE GLU 254 Result Comment: MANAGEMENT OF PATIENT CARE PER NURSING PROTOCOL Performed By: #### L501.080 #### [facility] Point of Care [address] [place] [address] PROTHROMBIN TIME W/INR Collected: 02/05/2018 Status: F Source: [place] 12:03 PM [facility] REPOSITORY TYPE CODE TESTS RESULT OUT OF RANGE REFERENCE UNITS LAB L300.4150 11.7-14.9 SECONDS High PROTIME 25.3 LAB L300.4200 Normal INR 2.3 Performed By: #### L300.3900 #### [facility] [address] [place], [address] CONSULTATION Observed: 02/05/2018 Status: F Source: [place] 9:52 AM [facility] REPOSITORY [facility] Medical Records Department [address] [place] [address] Consultation 02/05/18 0911 MR#: [id number] Acct: [id number] Name: JODIE SILVERIO Rep #: [id number] : 1940 77 From: Mariann Smith MD PCP: Jennifer Velazquez MD Status: ADM IN Y Location: [place] [address] Problem List (1) Chronic kidney disease Status: Acute Consultation - Renal 02/05/18 PCP/ Referring MD: Requesting physician: Rigoberto Ashley MD Primary care physician: Jennifer Velazquez MD Reason for Consultation:: Acute kidney injury on chronic kidney disease - History of Present Illness History of Present Illness: The patient is a 77 year old M past history significant for 2 diabetes mellitus, hypertension, coronary artery disease post CABG x 2 (most recently in 2016), hyperlipidemia, sleep apnea, gout, and aortic valve disease status post aortic valve replacement in 2016. 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 He is followed as an outpatient by Dr. Haroon Han, at their [place] office. She presented with cough 1 week. The patient's cough is associated with sputum production and dyspnea. Symptoms worsened over the past week to the point where was unable to stay home. Patient was admitted and diagnosed with community-acquired pneumonia 2 days ago. We are asked to see the patient because of rising creatinine over the past 24 hours. She has baseline creatinine level of 1.9-2.1/dL. She does complain of intermittent nausea although there has been no vomiting prior to admission. There has been no diarrhea. The patient denies chest pain, edema or orthopnea. He not nauseated currently. Patient had not been on NSAIDs at home. Denies recent exposure to IV contrast. - Allergies Allergies: Allergies Penicillins [PCN] Allergy (Verified 02/04/18 04:22) Swelling - Current Medications Current Medications: Current Medications Acetaminophen (Tylenol) 650 mg PO Q4H PRN PRN PRN Reason: FEVER Last Admin: 02/05/18 01:58 Dose: 650 mg Albuterol/Ipratropium (Duoneb) 3 ml INHALATION Q4H.RT [facility] Last Admin: 02/05/18 07:52 Dose: 3 ml [facility] Last Admin: 02/05/18 08:18 Dose: 150 mg Aspirin (Ecotrin) [facility] Last Admin: 02/05/18 08:17 Dose: 81 mg Atorvastatin Calcium (Lipitor) 40 mg PO QHS [facility] Last Admin: 02/04/18 21:54 Dose: 40 mg Cholecalciferol (Vitamin D) 1,000 unit PO DAILY [facility] Last Admin: 02/04/18 07:57 Dose: 1,000 unit Furosemide (Lasix) 40 mg IV BID@1000,1800 [facility] Last Admin: 02/04/18 16:58 Dose: 40 mg Guaifenesin (Mucinex) 1,200 mg PO BID [facility] Last Admin: 02/04/18 21:55 Dose: 1,200 mg Levofloxacin (Levaquin) 250 mg in 50 mls @ 50 mls/hr IV Q24 [facility] Insulin Aspart (Novolog Flexpen (Bk)) [facility] Last Admin: 02/05/18 08:21 Dose: 25 u Insulin Human NPH (Humulin N (Bk)) 25 [facility] SC [facility] Last Admin: 02/05/18 08:22 Dose: 25 u Isosorbide Mononitrate (Imdur) 60 mg PO DAILY [facility] Last Admin: 02/04/18 07:55 Dose: 60 mg Levetiracetam (Keppra) 500 mg PO BID [facility] Last Admin: 02/04/18 21:54 Dose: 500 mg Metoprolol Tartrate (Lopressor (Beta Karyn)) 12.5 mg PO BID [facility] Last Admin: 02/04/18 21:55 Dose: 12.5 mg Multivitamins (Multivitamin) 1 tablet [facility] Last Admin: 02/05/18 08:19 Dose: 1 tablet Pantoprazole Sodium (Protonix) 20 mg PO DAILY [facility] Last Admin: 02/04/18 07:56 Dose: 20 mg Polysaccharide Iron Complex (Ferrex 150) 150 mg PO QODAY [facility] Last Admin: 02/04/18 07:55 Dose: 150 mg Potassium Chloride (K-Dur) 20 meq PO DAILYCM [facility] Last Admin: 02/05/18 08:19 Dose: 20 meq Sertraline HCl (Zoloft) 25 mg PO DAILY [facility] Last Admin: 02/04/18 07:57 Dose: 25 mg Sodium Chloride () 5 - 30 ml IV UD PRN PRN Reason: SALINE FLUSH Last Admin: 02/04/18 21:59 Dose: 10 ml Throat Lozenges (Cepacol Sore Throat Lozenge) 1 lozenge MUCOUS MEM Q2H PRN PRN PRN Reason: cough, sore throat Last Admin: 02/05/18 01:11 Dose: 1 lozenge Warfarin Sodium (Coumadin (Pbkc)) 2.5 mg PO DAILY@1700 [facility] Last Admin: 02/04/18 16:58 Dose: 2.5 mg - Past Medical History Past Medical History (Chronic Problems): Chronic Problems Gout (Chronic) Sleep apnea (Chronic) Cholecystitis (Chronic) Seizure (Chronic) Hypomagnesemia (Chronic) DM type 2 (diabetes mellitus, type 2) (Chronic) Venous insufficiency of both lower extremities (Chronic) Hyperlipemia (Chronic) Aortic valve replaced (Chronic) January 2016 at [facility], pig valve Chronic renal failure, stage 3 (moderate) (Chronic) Morbid obesity with BMI of 45.0-49.9, adult (Chronic) Anemia (Chronic) CAD (coronary artery disease) (Chronic) Hx of CABG (Chronic) CABG in 1993 and then again in January of 2016 at [facility] along with an AVR HTN (hypertension) (Chronic) - Past Surgical History Surgical History: cataract, coronary bypass surgery - x 3, - - Aortic valve replacement, bilateral carpal tunnel release, PICC line. - Social History Smoking Status: Former smoker - Family History Maternal History Items: Stroke - mother at age 60 from stroke Sibling History Items: Seizures - recently diagnosed Review of Systems Constitutional: Reports: Chills, Malaise, Weakness. Denies: Anorexia, Fever, Night Sweats Eyes: Denies: Blurred vision, Vision Change HEENT: Denies: Head Aches, Sinus Congestion, Sinus Drainage Cardiovascular: Denies: Chest Pain, Edema, Orthopnea, Palpitations Respiratory: Reports: Cough, Shortness of breath at rest, Wheezing Gastrointestinal: Reports: Nausea. Denies: Abdominal Pain, Diarrhea, Vomiting Genitourinary: Denies: Dysuria Musculoskeletal: Denies: Joint Pain, Joint Tenderness Skin: Denies: Rash, Wounds Neurological: Denies: Numbness, Tingling, Focal weakness Hematologic/ Lymphatic: Denies: Easy Bruising, Easy Bleeding Patient Problems: Active and Suspected Problems Community acquired pneumonia (Acute) Left bundle branch block (Acute) Hypoxemia (Acute) Chronic kidney disease (Acute) - Physical Exam General: Alert, Oriented x3 HEENT: Atraumatic, Normocephalic Oral: Dry Mucosa Neck: Supple Lungs: Wheezes - bilateral wheeze without crackle. Cardiovascular: Normal S1, Normal S2, No murmurs, Tachycardic Abdomen: Bowel Sounds Present, Soft, Non Tender, Obese Extremities: No clubbing, No cyanosis, No edema Skin: No rashes Musculoskeletal: No Tenderness to Palpation of Joints or Extremities Lymphatic: No Cervical, Supraclavicular, or Inguinal Adenopathy Neurological: Cranial nerves II-XII grossly intact Vital Signs Temp Pulse Resp BP Pulse Ox 98 F 100 24 H 116/56 L 96 02/05/18 08:32 02/05/18 08:32 02/05/18 08:32 02/05/18 08:32 02/05/18 08:32 Oxygen Flow Rate (L/min) 2 Oxygen Delivery Method Nasal Cannula Weight: 125.3 kg Body Mass Index (BMI) 45.9 Intake and Output for Last 24 Hours Intake Total 600 / 600 60 / 60 Output Total 625 / 625 200 / 200 Balance -25 / -25 -140 / -140 Microbiology Past 72 Hours 02/04/18 07:45 Influenza Types A,B Direct FA (AYUSH) - Final Laboratory Tests Past 24 Hrs WBC 6.7 RBC 3.51 L Hgb 10.8 L Hct 33.3 L MCV 94.9 H MCH 30.8 MCHC 32.4 RDW 14.5 RDW Differential 48.1 H POC Glucose POC Glucose 153 H 101 196 H Assessment/Plan Active and Suspected Problems Community acquired pneumonia (Acute) Left bundle branch block (Acute) Hypoxemia (Acute) Chronic kidney disease (Acute) 1. Acute kidney injury on chronic kidney disease stage 3b-4. CKD is likely due to diabetic nephropathy. DARRYL may be due to diuresis in the setting of active infection (CAP). Will stop Lasix for now since there is no evidence of volume overload. Will also stop KCl while pt is off Lasix. Will check FEurea. Recheck renal panel in am. Monitor volume status. 2. Hypomagnesemia. Likely due to diuresis. Will give MagOx x 1. Recheck Mg in am. 3. T2DM. Glycemic control per hospital medicine service. 4. CAP. On Levaquin. Dose is OK for the current CrCl. 02/05/18 0952 <Electronically signed by Mariann Smith MD> Date Mariann Smith MD Cosigner Signature (if applicable): Date CC: Jennifer Velazquez MD; Maite Javier MD Signed BEDSIDE GLUCOSE Collected: 02/05/2018 Status: F Source: [place] 6:48 AM [facility] REPOSITORY TYPE CODE TESTS RESULT OUT OF REFERENCE UNITS RANGE LAB L501.080 70-110 mg/dL High BEDSIDE GLU 153 Result Comment: MANAGEMENT OF PATIENT CARE PER NURSING PROTOCOL Performed By: #### L501.080 #### [facility] Point of Care [address] [place] [address] CBC W/DIFF, AUTOMATED Collected: 02/05/2018 Status: F Source: [place] 5:28 AM [facility] REPOSITORY TYPE CODE TESTS RESULT OUT OF RANGE REFERENCE UNITS LAB L100.1000 4.4-11.0 K/mm3 Normal WBC 6.7 LAB L100.1200 4.6-6.2 M/mm3 Low RBC 3.51 LAB L100.1300 13.0-16.5 g/dl Low HGB 10.8 LAB L100.1400 40-54 % Low HCT 33.3 LAB L100.1500 80-94 fL High MCV 94.9 LAB L100.1600 27.0-32.0 pg Normal MCH 30.8 LAB L100.1700 32-36 g/gl Normal MCHC 32.4 LAB L100.1810 11.6-14.6 % Normal RDW CV 14.5 LAB L100.1820 35.1-43.9 fl High RDW SD 48.1 LAB L100.1900 150-450 K/mm3 Low PLT 133 LAB L100.2000 6.2-12.0 fl Normal MPV 9.9 LAB L100.2100 47-70 % Normal NEUT% 66.3 LAB L100.2200 19-41 % Normal LY% 21.9 LAB L100.2300 0-10 % High MONO% 11.2 LAB L100.2400 0-5 % Normal EO% 0.4 LAB L100.2500 0-1 % Normal BASO% 0.1 LAB L100.2550 0.0-0.9 % Normal IM GRAN % 0.100 Result Comment: IG% - Immature Granulocytes (promyelocytes, myelocytes and metamyelocytes) > 1% indicates that a LEFT SHIFT is Present. LAB L100.2620 2.0-7.7 X10 3/uL Normal Absolute Neut 4.4 LAB L100.2720 0.83-4.51 X10 3/ul Normal Absolute Lymph 1.47 Performed By: #### L100.0100 #### [facility] [address] [place] [address]. [place], [place], [address] BASIC METABOLIC Collected: 02/05/2018 Status: F Source: [place] PROFILE (BMP) 5:28 AM [facility] REPOSITORY TYPE CODE TESTS RESULT OUT OF RANGE REFERENCE UNITS LAB L501.0100 74-106 mg/dL High GLU 153 Result Comment: Fasting Glucose result greater than or equal to 126 mg/dL suggests DIABETES MELLITUS per A.D.A. criteria. Please note revised GLUCOSE reference range effective 2017. LAB L501.1000 7-18 mg/dL High BUN 44 LAB L501.1100 0.70-1.30 mg/dL High CREAT,SERUM 2.24 Result Comment: The validity of the calculated GFR AND GFRAA in patients over 70 years has not been determined. Clinical correlation is essential. LAB L501.1110 >60 mL/min Low EST GFR 30 Result Comment: Non- GFR Calc LAB L501.1115 >60 mL/min Low EST GFR - AA 37 Result Comment: GFR Calc LAB L501.1255 ml/min Normal Estimated CRCL 24.40 LAB L501.1300 10-20 RATIO Normal BUN/CRE 19.6 LAB L501.2200 8.5-10 mg/dL Normal .1 CA 8.5 LAB L501.5300 136-14 mmol/L Normal 5 NA 136 LAB L501.5600 3.5-5. mmol/L Normal 1 K 4.1 LAB L501.5900 98-107 mmol/L Normal CL 103 LAB L501.6100 21.0-3 mmol/L Normal 2.0 CO2 22.0 LAB L501.6200 5-15 Normal GAP 11 Performed By: #### L500.2500, L501.5200 #### [facility] [address] [place], [address] MAGNESIUM Collected: 02/05/2018 Status: F Source: [place] 5:28 AM [facility] REPOSITORY TYPE CODE TESTS RESULT OUT OF RANGE REFERENCE UNITS LAB L501.5200 1.6-2.6 mg/dL Low MG 1.4 Result Comment: Please note revised Magnesium reference range effective 2017. Performed By: #### L500.2500, L501.5200 #### [facility] [address] [place], [address] CHEST 1 VIEW Observed: 02/05/2018 Status: F Source: [place] (PORTABLE) 12:00 AM [facility] REPOSITORY [facility] Imaging Services [address] [place] [address] Chest 1 View (Portable) MR#: [id number] Acct: [id number] Name: JODIE SILVERIO Rep #: [id number] : 1940 M 77 From: Bela Garcia MD PCP: Jennifer Velazquez MD Status: ADM IN Study: Chest 1 View (Portable) Date of Exam: 02/05/18 Exam# [id number] Ordering Dr: Rigoberto Ashley MD STUDY: X-RAY CHEST REASON FOR EXAM: Male, 77 years old. Dyspnea TECHNIQUE: Single AP portable view of the chest. COMPARISON: February 04, 2018 FINDINGS: The lungs are clear and expanded. There is no demonstrated pleural abnormality. Sternal cerclage wires and vascular clips are present from a prior sternotomy and coronary artery bypass graft procedure (CABG). Normal mediastinum and baudilio. Normal visualized pulmonary arteries. Normal visualized aortic arch and descending thoracic aorta. Normal visualized thoracic spine. There is degenerative osteoarthritis of the bilateral shoulders. There is no demonstrated abnormality of the visualized soft tissue structures of the upper abdomen. RAD/Chest 1 View (Portable) IMPRESSION: Degenerative changes, as described above. No demonstrated acute cardiopulmonary process. Electronically Signed: Bela Garcia MD at 6:28 EDT Tel , Service support , CC: Jennifer Velazquez MD; Rigoberto Ashley MD Seed Cone Picker: Signed BEDSIDE GLUCOSE Collected: 02/04/2018 Status: F Source: [place] 9:52 PM [facility] REPOSITORY TYPE CODE TESTS RESULT OUT OF RANGE REFERENCE UNITS LAB L501.080 70-110 mg/dL Normal BEDSIDE GLU 101 Result Comment: MANAGEMENT OF PATIENT CARE PER NURSING PROTOCOL Performed By: #### L501.080 #### [facility] Point of Care [address] [place], [place] [address] BEDSIDE GLUCOSE Collected: 02/04/2018 Status: F Source: [place] 4:19 PM [facility] REPOSITORY TYPE CODE TESTS RESULT OUT OF REFERENCE UNITS RANGE LAB L501.080 70-110 mg/dL High BEDSIDE GLU 196 Result Comment: MANAGEMENT OF PATIENT CARE PER NURSING PROTOCOL Performed By: #### L501.080 #### [facility] Point of Care [address] [place] [address] BEDSIDE GLUCOSE Collected: 02/04/2018 Status: F Source: [place] 7:48 AM [facility] REPOSITORY TYPE CODE TESTS RESULT OUT OF REFERENCE UNITS RANGE LAB L501.080 70-110 mg/dL High BEDSIDE GLU 146 Result Comment: MANAGEMENT OF PATIENT CARE PER NURSING PROTOCOL Performed By: #### L501.080 #### [facility] Point of Care [address] [place] [address] Observed: 02/04/2018 Status: F Source: [place] INFLUENZA A+B (RAPID 7:45 AM [facility] DEANNE) REPOSITORY FLU A/B Rapid Negative test results should be confirmed by culture. Order Rapid Viral Culture for Influenzae A+B (533354) if clinically indicated. Influenza Ag, Direct Presumptive NEGATIVE for Influenza A/B Antigen (See Note) Performed By: #### M101.0101 #### [facility] [address] [place] [address] [place], [address] URINALYSIS, ROUTINE Collected: 02/04/2018 Status: F Source: [place] (DIPSTICK) 7:00 AM [facility] REPOSITORY Order Comment: How was Urine Obtained? REIMBURSEMENT REPRESENTATIVE TO SPECIFY TYPE CODE TESTS RESULT OUT OF RANGE REFERENCE UNITS LAB L400.3000 Yellow COLOR Normal Yellow LAB L400.3050 Clear Normal CLARITY Clear LAB L400.3200 Normal mg/dl Normal GLUCOSE, UR Normal LAB L400.3300 Negative mg/dL Normal BILIRUBIN URINE Negative LAB L400.3400 Negative mg/dl Normal KETONE UR Negative LAB L400.3465 1.002-1.030 Normal SP.GR. DIPSTX 1.015 LAB L400.3550 5.0 - 8.0 pH UR Normal 5.0 LAB L400.3600 Negative mg/dl High PROT DIPSTX 100 LAB L400.3700 Normal mg/dl Normal UROBILI Normal LAB L400.3750 Negative Normal NITRITE UR Negative LAB L400.3780 Negative /ul High 50 OCCULT BLOOD-UR LAB L400.3800 Negative /ul High LEUK ESTERASE 500 Performed By: #### L400.2010 #### [facility] [address] [facility] [place], [address] Observed: 02/04/2018 Status: F Source: [place] LEGIONELLA ANTIGEN 7:00 AM [facility] URINE REPOSITORY Legionella, UR Legionella Antigen result interpretation: Negative Presumptive negative for Legionella pneumophila serogroup 1 antigen in urine, suggesting no recent or current infection. Legionella Ag, Urine Negative (See interpretation below) Performed By: #### M300.4500, M300.4600 #### [facility] [address] [facility] [place], [address] STREP Observed: 02/04/2018 Status: F Source: [place] PNEUMONIAE ANTIG(UR,CSF) 7:00 AM [facility] REPOSITORY S pneumo Ag URINE INTERPRETATION Negative Urine Presumptive negative for pneumococcal pneumonia, suggesting no current or recent pneumococcal infection. Infection due to S pneumoniae cannot be ruled out since the antigen present in the sample may be below the detection limit of the test. Strep pneumo Test Negative URINE (See interpretation below) Performed By: #### M300.4500, M300.4600 #### [facility] [address] [facility] [place], [address] HISTORY AND PHYSICAL Observed: 02/04/2018 Status: F Source: [place] EXAM 5:56 AM [facility] REPOSITORY [facility] Medical Records Department [address] [place] [address] History and Physical 02/04/18 0548 MR#: [id number] Acct: [id number] Name: JODIE SILVERIO Rep #: [id number] : 1940 77 From: Mustapha De Leon MD PCP: Jennifer Velazquez MD Status: REG ER Y Location: ED Problem List (1) Chronic kidney disease Status: Acute (2) Community acquired pneumonia Status: Acute (3) Chronic renal failure, stage 3 (moderate) Status: Chronic (4) DM type 2 (diabetes mellitus, type 2) Status: Chronic (5) Morbid obesity with BMI of 45.0-49.9, adult Status: Chronic History of Present Illness Date of Admission: 02/04/18 Chief Complaint: CAP The patient is a 77 year old male w/ h/o CABG, CKD IV, HTN, DMII and AUTUMN admitted for CAP. He has been having increase SOB x 1 day. Nothing made it better or worse. His SOB is associated with productive cough. The intensity and frequency of his cough have increased in the past few hours. His SOB is constant and severe. SOB interfered with his ADLs. No fever but he c/o chill. He came to the ED hypoxic. Past Medical History Past Medical History (Chronic Problems): Chronic Problems Gout (Chronic) Sleep apnea (Chronic) Cholecystitis (Chronic) Seizure (Chronic) Hypomagnesemia (Chronic) DM type 2 (diabetes mellitus, type 2) (Chronic) Venous insufficiency of both lower extremities (Chronic) Hyperlipemia (Chronic) Aortic valve replaced (Chronic) January 2016 at [facility], pig valve Chronic renal failure, stage 3 (moderate) (Chronic) Morbid obesity with BMI of 45.0-49.9, adult (Chronic) Anemia (Chronic) CAD (coronary artery disease) (Chronic) Hx of CABG (Chronic) CABG in 1993 and then again in January of 2016 at [facility] along with an AVR HTN (hypertension) (Chronic) Allergies Penicillins [PCN] Allergy (Verified 02/04/18 04:22) Swelling Home Medications: Ambulatory Orders Medication Instructions Recorded Surgical History: cataract, coronary bypass surgery - x 3, - - Aortic valve replacement, bilateral carpal tunnel release, PICC line. Lives: Spouse/ Significant Other, With Family Smoking Status: Former smoker - *Family History Maternal History Items: Stroke - mother at age 60 from stroke Sibling History Items: Seizures - recently diagnosed Review of Systems Constitutional: Denies: Chills, Fever, Weight Change HEENT: Denies: Head Aches, Sinus Congestion, Sinus Drainage Cardiovascular: Denies: Chest Pain, Palpitations Respiratory: Reports: Cough, Shortness of breath at rest. Denies: Sputum production Gastrointestinal: Denies: Abdominal Pain, Nausea, Vomiting Genitourinary: Denies: Dysuria Musculoskeletal: Denies: Joint Pain, Joint Tenderness Skin: Denies: Rash, Wounds Neurological: Denies: Numbness, Tingling, Focal weakness Psychiatric: Denies: Anxiety, Depression, Homicidal Ideations, Suicidal Ideations Hematologic/ Lymphatic: Denies: Easy Bruising, Easy Bleeding VTE Information - Inpt Only VTE Present on Admission: No VTE Mechan Device Prophylaxis: SCD's VTE Pharm Prophylaxis ordered?: Yes Patient Problems: Active and Suspected Problems Community acquired pneumonia (Acute) Left bundle branch block (Acute) Hypoxemia (Acute) Chronic kidney disease (Acute) - Physical Exam General: Alert, Oriented x3, Cooperative HEENT: Atraumatic, PERRLA, EOMI, Normocephalic Neck: Supple, No JVD, Negative Carotid Bruits Lungs: Diminished, Short of Breath, - - Crackle at left lobe Cardiovascular: Regular rate, No murmurs Abdomen: Bowel Sounds Present, Soft, Non Tender Extremities: No edema, Capillary Refill Less than 3 Seconds Skin: No rashes, No breakdown Musculoskeletal: No Tenderness to Palpation of Joints or Extremities Neurological: Cranial nerves II-XII grossly intact Psych/Mental Status: Normal Affect, Appropriate Vital Signs Temp Pulse Resp BP Pulse Ox 98.7 F 97 22 H 144/75 H 97 02/04/18 05:26 02/04/18 05:30 02/04/18 05:30 02/04/18 05:30 02/04/18 05:30 Oxygen Flow Rate (L/min) 2 Oxygen Delivery Method Nasal Cannula Weight: 127.9 kg Body Mass Index (BMI) 46.9 Finger Stick Blood Glucose 227 Laboratory Tests Past 24 Hrs WBC RBC Hgb Hct MCV MCH MCHC RDW RDW Differential Plt Count MPV Immature Gran % (Auto) Assessment/Plan Active and Suspected Problems Community acquired pneumonia (Acute) Left bundle branch block (Acute) Hypoxemia (Acute) Chronic kidney disease (Acute) 77 year old male w/ h/o CABG, CKD IV, HTN, DMII and AUTUMN admitted for CAP. 1) CAP: Chest xray disclosed possible left lower lobe infiltrate. Will start levaquin. Cultures pending. 2) Acute respiratory failure: C/w oxygen. Trops negative. Will get serial trop. EKG disclosed left bundle branch block. H/o CABG. C/w meds. Supportive care. 3) CKD IV: Cr at baseline. C/w routine CKD care. Monitor. 4) Prophylaxis: SCD / coumadin. 02/04/18 0556 <Electronically signed by Mustapha De Leon MD> Date Mustapha De Leon MD Cosigner Signature: Date (if applicable) CC: Jennifer Velazquez MD; Mustapha De Leno MD Signed EMERGENCY DEPARTMENT Observed: 02/04/2018 Status: F Source: [place] SUMMARY 5:41 AM [facility] REPOSITORY [facility] Medical Records Department [address] [place] [address] Emergency Department Summary 02/04/18 0431 MR#: [id number] Acct: [id number] Name: JODIE SILVERIO Rep #: [id number] : 1940 77 From: Oscar Boyd PCP: Jennifer Velazquez MD Status: REG ER - ER Visit Summary Date of Service: 02/04/18 Chief Complaint: Dyspnea, cough History of Present Illness: The patient is a 77 M 1 week history of cough with sputum production. This evening worsening shortness of breath. No chest pains. Complains of chills. No fevers. No urinary symptoms. No nausea or vomiting. History of sleep apnea with CPAP at night. Denies history of COPD or asthma. Remote tobacco history. CHF history with no increased swelling. Previously on home oxygen due to CHF history. No further complaints. Physical Examination: General: Alert and oriented 3, short sentences. HEENT: Normocephalic, atraumatic. Moist mucosa membranes Neck: supple, nontender. Cardiovascular: Regular tachycardic rate and rhythm, no murmurs Respiratory: Wheezing noted lower lobes with diminished sounds. Abdomen: Soft, nontender, nondistended Extremities: Nontender, mild lower extremity edema, pulses intact 4 Neuro: no focal neurological deficits. Test Results:EKG: Sinus, left bundle branch block, Rate of 100. No ST or T-wave changes. CBC white count 7.9. Hemoglobin 0.6. Creatinine 1.84. INR 2.5. Sputum Gram stain and culture sent and pending. Blood culture 2 pending. Lactic acid 1.4. Troponin pending. Chest x-ray: Concerns for left hilar infiltrate. Emergency Department Course and Treatment: Patient hypoxic on arrival, no home oxygen. Placed on oxygen with aerosol treatments. Pulse ox improved. Wheezing on examination. EKG notes a new left bundle branch block. He has no chest pain. Troponin is pending. Sepsis protocol due to tachycardia and tachypnea. X-ray reviewed by myself concerns for left hilar infiltrate compared to previous x-rays. Lactic acid 1.4. Currently on reevaluation some wheezing was improved. Creatinine lower than recent baseline. Currently hospitalist on page for discussion for admission for community acquired pneumonia, hypoxemia, new left bundle branch block. Discussed with Dr. De Leon, will place on Levaquin IV. Treatment Plan: [] Disposition: Admission Impression: 1. Community acquired pneumonia 2. New left bundle branch block 3. Hypoxemia 4. Chronic kidney disease This note was generated with TravelAIation software. It may contain incorrect words, spelling, and punctuation that were not noted in review of the chart prior to signing ED Disposition - Plan for ED Patient: Disposition: formerly [facility] Chief Complaint: Shortness of Breath Diagnosis: Community acquired pneumonia, Left bundle branch block, Hypoxemia, Chronic kidney disease Referrals: Jennifer Velazquez MD [Primary Care Provider] - What to do if you have Problems For any increased pain, shortness of breath, bleeding, nausea or vomiting, chest pain, or any unexpected problems, contact your Primary Care Provider. Call [facility] ([phone]) or report to the closest Emergency Room. Call 911 if necessary. 02/04/18 0541 <Electronically signed by Oscar Boyd> Date Oscar Boyd Cosigner Signature (If Indicated): Date CC: Jennifer Velazquez MD Observed: 02/04/2018 Status: F Source: [place] CULTURE, SPUTUM 5:00 AM [facility] REPOSITORY Gram Stain Acceptable Specimen? Yes (<25 Epithelial cells per/lpf) Gram Stain 1+ White Blood Cells 1+ Epithelial cells 4+ Gram positive cocci Resp. Culture Mixed normal respiratory owen. No Haemophilus, Streptococcus pneumoniae, beta-hemolytic Streptococcus or Staphylococcus aureus isolated. Performed By: #### M100.0800 #### [facility] [address] [place], [address] Observed: 02/04/2018 Status: F Source: [place] CULTURE, BLOOD (WB) 4:40 AM [facility] REPOSITORY BC No growth in 5 days. Performed By: #### M200.1000 #### [facility] [address] [place], [address] CBC W/DIFF, AUTOMATED Collected: 02/04/2018 Status: F Source: [place] 4:35 AM [facility] REPOSITORY TYPE CODE TESTS RESULT OUT OF RANGE REFERENCE UNITS LAB L100.1000 4.4-11.0 K/mm3 Normal WBC 7.9 LAB L100.1200 4.6-6.2 M/mm3 Low RBC 3.70 LAB L100.1300 13.0-16.5 g/dl Low HGB 11.6 LAB L100.1400 40-54 % Low HCT 35.2 LAB L100.1500 80-94 fL High MCV 95.1 LAB L100.1600 27.0-32.0 pg Normal MCH 31.4 LAB L100.1700 32-36 g/gl Normal MCHC 33.0 LAB L100.1810 11.6-14.6 % Normal RDW CV 14.4 LAB L100.1820 35.1-43.9 fl High RDW SD 47.3 LAB L100.1900 150-450 K/mm3 Low PLT 148 LAB L100.2000 6.2-12.0 fl Normal MPV 9.9 LAB L100.2100 47-70 % High NEUT% 72.2 LAB L100.2200 19-41 % Low LY% 15.1 LAB L100.2300 0-10 % Normal MONO% 8.8 LAB L100.2400 0-5 % Normal EO% 3.3 LAB L100.2500 0-1 % Normal BASO% 0.5 LAB L100.2550 0.0-0.9 % Normal IM GRAN % 0.100 Result Comment: IG% - Immature Granulocytes (promyelocytes, myelocytes and metamyelocytes) > 1% indicates that a LEFT SHIFT is Present. LAB L100.2620 2.0-7.7 X10 3/uL Normal Absolute Neut 5.7 LAB L100.2720 0.83-4.51 X10 3/ul Normal Absolute Lymph 1.20 Performed By: #### L100.0100 #### [facility] [address] [place], [address] PROTHROMBIN TIME W/INR Collected: 02/04/2018 Status: F Source: [place] 4:35 AM [facility] REPOSITORY TYPE CODE TESTS RESULT OUT OF RANGE REFERENCE UNITS LAB L300.4150 11.7-14.9 SECONDS High PROTIME 27.2 LAB L300.4200 Normal INR 2.5 Performed By: #### L300.3900, L300.4310 #### [facility] [address] [place], [address] PARTIAL THROMBOPLAST Collected: 02/04/2018 Status: F Source: [facility] 4:35 AM [facility] REPOSITORY TYPE CODE TESTS RESULT OUT OF REFERENCE UNITS RANGE LAB L300.4310 24.1-36.2 Seconds High PTT 50.3 Performed By: #### L300.3900, L300.4310 #### [facility] [address] [facility] [place], [address] COMPREHENSIVE METABOLIC Collected: 02/04/2018 Status: F Source: [place] PROFIL 4:35 AM [facility] REPOSITORY TYPE CODE TESTS RESULT OUT OF RANGE REFERENCE UNITS LAB L501.0100 74-106 mg/dL High GLU 126 Result Comment: Fasting Glucose result greater than or equal to 126 mg/dL suggests DIABETES MELLITUS per A.D.A. criteria. Please note revised GLUCOSE reference range effective 2017. LAB L501.1000 7-18 mg/dL High BUN 35 LAB L501.1100 0.70-1.30 mg/dL High CREAT,SERUM 1.84 Result Comment: The validity of the calculated GFR AND GFRAA in patients over 70 years has not been determined. Clinical correlation is essential. LAB L501.1110 >60 mL/min Low EST GFR 38 Result Comment: Non- GFR Calc LAB L501.1115 >60 mL/min Low EST GFR - AA 46 Result Comment: GFR Calc LAB L501.1255 ml/min Normal Estimated CRCL 29.71 LAB L501.1300 10-20 RATIO Normal BUN/CRE 19.0 LAB L501.1500 6.4-8. g/dL Normal 2 T PROT 7.7 LAB L501.1800 3.2-5. g/dL Normal 0 ALB 3.3 LAB L501.1950 2.2-4. g/dL High 2 GLOB 4.4 LAB L501.2000 0.9-2. RATIO Low 4 A/G 0.8 LAB L501.2200 8.5-10 mg/dL Low .1 CA 8.1 LAB L501.4100 15-37 U/L Normal AST 18 LAB L501.4305 45-117 U/L High ALK P 133 LAB L501.4405 16-61 U/L Normal ALT 19 Result Comment: Please note revised ALT reference range effective 2017. LAB L501.4600 0.20-1.00 mg/dL Normal T BILI 0.50 LAB L501.5300 136-145 mmol/L Normal NA 138 LAB L501.5600 3.5-5.1 mmol/L Normal K 4.6 LAB L501.5900 98-107 mmol/L Normal CL 104 LAB L501.6100 21.0-32.0 mmol/L Normal CO2 26.0 LAB L501.6200 5-15 Normal GAP 8 Performed By: #### L500.4050 #### [facility] [address] [facility]. [place], [place], [address] LACTIC ACID Collected: 02/04/2018 Status: F Source: [place] 4:35 AM [facility] REPOSITORY Order Comment: Yes/No query for Sepsis Lactate Rule Y TYPE CODE TESTS RESULT OUT OF RANGE REFERENCE UNITS LAB L503.6005 0.4-2.0 mmol/L Normal LACTIC ACID 1.4 Performed By: #### L503.6005 #### [facility] [address] [facility]. [place], [place], [address] TROPONIN-I Collected: 02/04/2018 Status: F Source: [place] 4:35 AM [facility] REPOSITORY Order Comment: 'TROP' Serial specimen #1, #2, #3, or #4: 1 TYPE CODE TESTS RESULT OUT OF RANGE REFERENCE UNITS LAB L501.4010 <0.06 ng/mL Normal < 0.02 TROPONIN-I Result Comment: TROPONIN-I EXPECTED VALUES <0.05 NEGATIVE 0.06 - 0.59 AT RISK OF VT > OR = 0.60 SUGGEST VT Performed By: #### L501.4010 #### [facility] [address] [facility] [place], [address] Observed: 02/04/2018 Status: F Source: [place] CULTURE, BLOOD (WB) 4:35 AM [facility] REPOSITORY BC No growth in 5 days. Performed By: #### M200.1000 #### [facility] [address] [facility] [place], [address] CHEST 1 VIEW Observed: 02/04/2018 Status: F Source: [place] (PORTABLE) 4:31 AM [facility] REPOSITORY [facility] Imaging Services [address] [place] [address] Chest 1 View (Portable) MR#: [id number] Acct: [id number] Name: JODIE SILVERIO Rep #: [id number] : 1940 M 77 From: Bela Garcia MD PCP: Jennifer Velazquez MD Status: REG ER Study: Chest 1 View (Portable) Date of Exam: 02/04/18 Exam# [id number] Ordering Dr: Oscar Brown DO STUDY: X-RAY CHEST REASON FOR EXAM: Male, 77 years old. cough, SOB TECHNIQUE: Single AP portable view of the chest. COMPARISON: None. FINDINGS: The lungs are clear and expanded. There is no demonstrated pleural abnormality. Sternal cerclage wires and vascular clips are present from a prior sternotomy and coronary artery bypass graft procedure (CABG). Normal mediastinum and baudilio. Normal visualized pulmonary arteries. Normal visualized aortic arch and descending thoracic aorta. Normal visualized thoracic spine. There is degenerative osteoarthritis of the bilateral shoulders. There is no demonstrated abnormality of the visualized soft tissue structures of the upper abdomen. RAD/Chest 1 View (Portable) IMPRESSION: Degenerative changes, as described above. No demonstrated acute cardiopulmonary process. Electronically Signed: Bela Garcia MD at 5:48 EST Tel , Service support , CC: Jennifer Velazquez MD; Oscar Brown Seed Cone Picker: Signed HEMOGLOBIN A1C Collected: 01/19/2018 Status: F Source: [place] 2:16 PM [facility] REPOSITORY TYPE CODE TESTS RESULT OUT OF RANGE REFERENCE UNITS LAB L501.9985 4.2-6.3 % High HGB A1C 6.6 Performed By: #### L501.9985 #### [facility] [address] [place], [address] COMPREHENSIVE METABOLIC Collected: 01/19/2018 Status: F Source: [place] PROFIL 2:16 PM [facility] REPOSITORY TYPE CODE TESTS RESULT OUT OF RANGE REFERENCE UNITS LAB L501.0100 74-106 mg/dL High GLU 162 Result Comment: Fasting Glucose result greater than or equal to 126 mg/dL suggests DIABETES MELLITUS per A.D.A. criteria. Please note revised GLUCOSE reference range effective 2017. LAB L501.1000 7-18 mg/dL High BUN 37 LAB L501.1100 0.70-1.30 mg/dL High CREAT,SERUM 1.86 Result Comment: The validity of the calculated GFR AND GFRAA in patients over 70 years has not been determined. Clinical correlation is essential. LAB L501.1110 >60 mL/min Low EST GFR 38 Result Comment: Non- GFR Calc LAB L501.1115 >60 mL/min Low EST GFR - AA 46 Result Comment: GFR Calc LAB L501.1300 10-20 RATIO Normal BUN/CRE 19.9 LAB L501.1500 6.4-8.2 g/dL T Normal PROT 7.4 LAB L501.1800 3.2-5.0 g/dL Low ALB 3.1 LAB L501.1950 2.2-4.2 g/dL High GLOB 4.3 LAB L501.2000 0.9-2.4 RATIO Low A/G 0.7 LAB L501.2200 8.5-10.1 mg/dL Low CA 8.3 LAB L501.4100 15-37 U/L Normal AST 19 LAB L501.4305 45-117 U/L High ALK P 142 LAB L501.4405 16-61 U/L Normal ALT 24 Result Comment: Please note revised ALT reference range effective 2017. LAB L501.4600 0.20-1.00 mg/dL Normal T BILI 0.50 LAB L501.5300 136-145 mmol/L Normal NA 138 LAB L501.5600 3.5-5.1 mmol/L Normal K 4.6 LAB L501.5900 98-107 mmol/L Normal CL 105 LAB L501.6100 21.0-32.0 mmol/L Normal CO2 25.0 LAB L501.6200 5-15 Normal GAP 8 Performed By: #### L500.4050, L500.4100, L501.9520 #### [facility] [address] [place], [address] LIPID PROFILE Collected: 01/19/2018 Status: F Source: [place] 2:16 PM [facility] REPOSITORY TYPE CODE TESTS RESULT OUT OF RANGE REFERENCE UNITS LAB L501.4900 200 mg/dL Normal CHOL 116 Result Comment: <200 mg/dL Desirable 200-240 mg/dL Borderline >240 mg/dL High Risk LAB L501.5000 mg/dL High TRIG 221 Result Comment: The drugs N-Acetylcysteine and Metamizole may falsely depress this assay. Serum Triglycerides Reference Interval Normal <150 mg/dL Borderline high 150 - 199 mg/dL High 200 - 499 mg/dL Very High > or = 500 mg/dL LAB L501.6400 mg/dL Low HDL 30 Result Comment: The drugs N-Acetylcysteine and Metamizole may falsely depress this assay. Reference Range HDL <40 mg/dL Low HDL Cholesterol HDL >or= 60 mg/dL High HDL Cholesterol LAB L501.6500 0-130 mg/dL Normal LDL 42 LAB L501.6600 5-40 mg/dL High VLDL 44 Performed By: #### L500.4050, L500.4100, L501.9520 #### [facility] [address] [place], [place], [id number] THYROID STIM HORMONE Collected: 01/19/2018 Status: F Source: [place] (TSH) 2:16 PM [facility] REPOSITORY TYPE CODE TESTS RESULT OUT OF RANGE REFERENCE UNITS LAB L501.9520 0.358-3.74 uIU/mL Normal TSH 3.33 Performed By: #### L500.4050, L500.4100, L501.9520 #### [facility] [address] [facility]. [place], [place], [id number] CBC-COMPLETE BLOOD CNT Collected: 01/19/2018 Status: F Source: [place] NO DIFF 2:16 PM [facility] REPOSITORY TYPE CODE TESTS RESULT OUT OF RANGE REFERENCE UNITS LAB L100.1000 4.4-11.0 K/mm3 Normal WBC 9.2 LAB L100.1200 4.6-6.2 M/mm3 Low RBC 3.52 LAB L100.1300 13.0-16.5 g/dl Low HGB 10.7 LAB L100.1400 40-54 % Low HCT 33.5 LAB L100.1500 80-94 fL High MCV 95.2 LAB L100.1600 27.0-32.0 pg Normal MCH 30.4 LAB L100.1700 32-36 g/gl Low MCHC 31.9 LAB L100.1810 11.6-14.6 % Normal RDW CV 14.4 LAB L100.1820 35.1-43.9 fl High RDW SD 49.4 LAB L100.1900 150-450 K/mm3 Normal PLT 178 LAB L100.2000 6.2-12.0 fl Normal MPV 10.2 Performed By: #### L100.0500 #### [facility] [address] [facility] [place], [place], [id number] MICROALB:CREAT Collected: 01/19/2018 Status: F Source: [place] RATIO,RANDOM UR 2:16 PM [facility] REPOSITORY TYPE CODE TESTS RESULT OUT OF RANGE REFERENCE UNITS LAB L501.1200 NO RANGE EST. mg/dL Normal UR CREAT 47.40 LAB L502.0500 NO RANGE EST. mg/L Normal 126.0 MICROALBUMIN ,UR LAB L502.0600 <30 mg/g CRE mg/g CRE High 265.8 MALB:CREAT Performed By: #### L502.0250 #### [facility] [address] [place], [address] EMERGENCY DEPARTMENT Observed: 01/11/2018 Status: F Source: [place] SUMMARY 12:50 AM [facility] REPOSITORY [facility] Medical Records Department [address] [place] [address] Emergency Department Summary 01/10/18 1548 MR#: [id number] Acct: [id number] Name: JODIE SILVERIO Rep #: [id number] : 1940 77 From: Colleen Marcum MD PCP: Jennifer Velazquez MD Status: DEP ER - ER Visit Summary Date of Service: 01/10/18 Chief Complaint: Fall with head injury History of Present Illness: The patient is a 77 M currently on Coumadin secondary to a prior aortic valve replacement. Patient fell on the ice today hitting the back of his head. He did not lose consciousness. He is a very mild headache. He denies vision changes, nausea, or vomiting. INR was last checked a week ago at [facility]. Physical Examination: Vital signs are unremarkable. Head neck examination with a small hematoma to the right posterior parietal scalp. No lacerations are noted. These are clear bilaterally. He has no C-spine tenderness on exam. Heart is regular rate and rhythm. Lung sounds are clear. Abdomen is soft nontender. Extremity examination reveals an abrasion to the extensor surface of the right elbow. There is no tenderness to palpation and he has full range of motion without difficulty. There is no tenderness noted to the lower extremities. Neuro exam is unremarkable. Test Results: INR is 2.9. CT scan of the head shows chronic involutional changes. There is soft tissue swelling of the posterior midline scalp. No fracture is noted. Emergency Department Course and Treatment: She declined pain medication while here. Test results were discussed with him and family at bedside. He will be discharged home at this time. Treatment Plan: [] Disposition: Discharge Impression: 1. Mechanical fall 2. Scalp hematoma 3. Coumadin coagulopathy This note was generated with TravelAIation software. It may contain incorrect words, spelling, and punctuation that were not noted in review of the chart prior to signing ED Disposition - Plan for ED Patient: Disposition: Home or Assisted Living Chief Complaint: Fall Instructions: ED Mechanical Fall, ED Head Injury Closed Referrals: Jennifer Velazquez MD [Primary Care Provider] - As Needed What to do if you have Problems For any increased pain, shortness of breath, bleeding, nausea or vomiting, chest pain, or any unexpected problems, contact your Primary Care Provider. Call [facility] ([phone]) or report to the closest Emergency Room. Call 911 if necessary. 01/11/18 0050 <Electronically signed by Colleen Marcum MD> Date Colleen Marcum MD Cosigner Signature (If Indicated): Date CC: Jennifer Velazquez MD DISCHARGE INSTRUCTION Observed: 01/10/2018 Status: F Source: [place] 5:14 PM [facility] REPOSITORY [facility] Medical Records Department [address] [place] [address] Discharge Instruction 01/10/18 1714 MR#: [id number] Acct: [id number] Name: JODIE SILVERIO Rep #: [id number] : 1940 77 From: Colleen Marcum MD PCP: Jennifer Velazquez MD Status: REG ER ED Disposition - Plan for ED Patient: Disposition: Home or Assisted Living Chief Complaint: Fall Instructions: ED Mechanical Fall, ED Head Injury Closed Referrals: Jennifer Velazquez MD [Primary Care Provider] - As Needed What to do if you have Problems For any increased pain, shortness of breath, bleeding, nausea or vomiting, chest pain, or any unexpected problems, contact your Primary Care Provider. Call [facility] ([phone]) or report to the closest Emergency Room. Call 911 if necessary. 01/10/18 1714 <Electronically signed by Colleen Marcum MD> Date Colleen Marcum MD Cosigner Signature (If Indicated): Date CC: Jennifer Velzaquez MD PROTHROMBIN TIME W/INR Collected: 01/10/2018 Status: F Source: [place] 4:00 PM [facility] REPOSITORY TYPE CODE TESTS RESULT OUT OF RANGE REFERENCE UNITS LAB L300.4150 11.7-14.9 SECONDS High PROTIME 29.4 LAB L300.4200 Normal INR 2.9 Performed By: #### L300.3900 #### [facility] [address] [facility] [place], [address] BRAIN/HEAD WITHOUT Observed: 01/10/2018 Status: F Source: [place] CONTRAST 3:46 PM [facility] REPOSITORY [facility] Imaging Services [address] [place] [address] Brain/Head without Contrast MR#: [id number] Acct: [id number] Name: JODIE SILVERIO Rep #: [id number] : 1940 M 77 From: Juan Marlow MD PCP: Jennifer Velazquez MD Status: REG ER Study: Brain/Head without Contrast Date of Exam: 01/10/18 Exam# [id number] Ordering Dr: Colleen Marcum MD STUDY: CT BRAIN WITHOUT CONTRAST REASON FOR EXAM: Male, 77 years old. FALL 45 MIN [employer], ON BLOOD THINNERS RADIATION DOSAGE (If Supplied By Facility): CTDIvol = ( 44.99 ) mGy, DLP = ( 779.24 ) mGycm TECHNIQUE: Transaxial CT imaging of the brain was performed without administration of intravenous contrast material. COMPARISON: 11.18.17. FINDINGS: Soft tissue swelling of the posterior midline scalp. There is no underlying fracture. Normal calvarium. There are calcifications around the carotid artery. These are noted in the cavernous carotid arteries. There is mild cerebral atrophy with widening of the extra- axial spaces and ventricular dilatation. There are areas of decreased attenuation within the white matter tracts of the supratentorial brain, consistent with microvascular disease changes. Normal thalami. Normal brainstem. There is mild cerebellar atrophy. Physiologic calcifications of the basal ganglia. There is no intracranial hemorrhage. There are no findings of an acute ischemic infarction. Normal visualized paranasal sinuses. CT/Brain/Head without Contrast IMPRESSION: Chronic involutional changes of the brain. Soft tissue swelling of the posterior midline scalp. There is no underlying fracture. Electronically Signed: Juan Marlow MD at 16:39 EST , Service support , CC: Jennifer Velazquez MD; Colleen Marcum MD Seed C[employer] Picker: Signed BRAIN/HEAD WITHOUT Observed: 11/18/2017 Status: F Source: [place] CONTRAST 2:35 PM [facility] REPOSITORY [facility] Imaging Services [address] [place] [address] Brain/Head without Contrast MR#: [id number] Acct: [id number] Name: JODIE SILVERIO Rep #: [id number] : 1940 77 From: Wesley Baxter MD PCP: Jennifer Velazquez MD Status: REG CLI Study: Brain/Head without Contrast Date of Exam: 11/18/17 Exam# [id number] Ordering Dr: Jennifer Velazquez MD STUDY: CT BRAIN WITHOUT CONTRAST REASON FOR EXAM: Male, 77 years old. Altered mental status. Dementia. RADIATION DOSAGE (If Supplied By Facility): CTDIvol = ( 44.99 ) mGy, DLP = ( 779.24 ) mGycm TECHNIQUE: Transaxial CT imaging of the brain was performed without administration of intravenous contrast material. Individualized dose optimization techniques were used for this CT. COMPARISON: August 10, [address] FINDINGS: Normal soft tissue structures. Normal calvarium. There is mild cerebral atrophy with widening of the extra- axial spaces and ventricular dilatation. Normal white matter tracts of the cerebral hemispheres. There are small punctate calcifications of the basal ganglia which are seen in the aging brain as a normal variant. Normal brainstem. Normal cerebellum. There is no intracranial hemorrhage. There are no findings of an acute ischemic infarction. Normal visualized paranasal sinuses. CT/Brain/Head without Contrast IMPRESSION: Chronic involutional changes of the brain. No hemorrhage. Stable appearance. Electronically Signed: Wesley Baxter MD at 15:08 EST , Service support , CC: Jennifer Velazquez MD [employer] Picker: Signed ALLERGIES ALLERGIES DATE TYPE / CODE NAME / CODE REACTION SEVERITY SOURCE 10/24/2018 Drug Penicillins/ Swelling Unknown [facility] Allergy/4160 [id number]([facility] 30254(SNOMED XNORM) Repository CT) ENCOUNTERS ENCOUNTERS ADMIT/DISCHARGE ACCOUNT NUMBER ADMITTING ENCOUNTER LOCATION SOURCE CLASS 10/26/2018 [id number] [facility] 10/24/2018/10/24/20 [id number] Ambulatory BMSBuilding: [place] [facility]MS[facility] Repository 10/02/2018 [id number] Ambulatory BBuilding:DR Feliciano [facility] Repository 10/02/2018 [id number] Ambulatory [facility] ding:[facility] Repository 06/01/2018 [id number] Ambulatory [facility] ding:[facility]LAB Repository 04/05/2018 [id number] Ambulatory BMSBuilding: [place] [facility] Repository 03/27/2018 [id number] Ambulatory [facility] ding:MTLAB Repository 03/08/2018/03/08/20 [id number] Ambulatory BMSBuilding: [place] 18 [facility]MS.[facility] Repository 03/06/2018 [id number] Ambulatory BMSBuilding: [place] [facility] Repository 02/10/2018/02/15/20 [id number] Ambulatory [address] ding:[facility] Repository 02/04/2018/02/09/20 [id number] Mustapha De Leon Inpatient [place] ding:[facility] Repository : QWN420Ats: 1 02/04/2018 [id number] Haley Mustapha Ambulatory BMSBuilding: [place] BMS[facility] Repository 02/04/2018 [id number] Haley Mustapha Ambulatory BMSBuilding: [place] [facility] Repository 02/04/2018 [id number] Haley Mustapha Ambulatory BMSBuilding: [place] [facility] Repository 02/04/2018 [id number] Haley Mustapha Ambulatory BMSBuilding: [place] BMS[facility] Repository 02/04/2018/02/09/20 [id number] Ambulatory BMSBuilding: [place] 18 [facility] Repository 01/19/2018 [id number] Ambulatory [facility] ding:LAB.FUT Repository URE 01/10/2018/01/10/20 [id number] Emergency [address] ding:ED Repository 11/23/2017/11/23/20 [id number] Ambulatory [address] ding:PT Repository 11/18/2017 [id number] Ambulatory [facility] ding:CT Repository PAYERS PAYERS ENCOUNTER GUARANTOR PAYER SUBSCRIBER SOURCE 10/26/2018 JODIE Rothman [id number] Primary JODIE GOODSONUFDOB: [facility] Insurance:[place]ARE [id number] A [facility] [address]Fvx: (330) Number: Repository [phone] () [id number] Date:2018-10-26 10/26/2018 Secondary DON S KAUFDOB: [place] [facility] [id number] hospital Hospital Number: Repository [id number] Date:2018-10-26[address], [place] [address]AP: 10/26/2018 Tertiary NOT GIVENUNK [place] Insurance:SELF PAY [facility] Number: Effective Repository Date:2018-10-26 10/24/2018 DON S [id number] Primary DON S KAUFDOB: [place] Insurance:MEDICARE [id number] [facility] [address]Sdv: (330) Number: Repository [phone] () [id number] Date:2018-03-08 10/24/2018 Secondary DON S KAUFDOB: [place] [facility] [id number] hospital Hospital Number: Repository [id number] Date:2018-03-08[address], [place] [address]QI: 10/24/2018 Tertiary NOT GIVENUNK [place] Insurance:SELF PAY [facility] Number: Effective Repository Date:2018-10-24 10/02/2018 DON S KAUFDOB: Primary DON S KAUFDOB: [facility] Insurance:MEDICARE [id number] [place] [address] Number: [place] Repository [place] [id number] [place] [address]Hhi: (330) Date:2018-10-02Tel: ()Tel: [phone] () Name:PCGS (WP) Administrators LLCPO () [address] [place] [address]GC: 10/02/2018 Secondary DON S KAUFDOB: [facility] Insurance:BANKERS [id number] [place] [address] [facility] [place] Repository [employer] Number: [place] [id number] [address]Olw: (330) Date:2018-10-02 [phone] ()Tel: [phone] 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 Mary-[facility] [address]Qvy: (330) Number: Repository [phone] () [id number] Date:2018-10-02 10/02/2018 Secondary DON S KAUFDOB: [place] Insurance:[facility] [id number] hospital Hospital Number: Repository [id number] Date:2018-10-02 [address], [place] [address]FL: 10/02/2018 Tertiary NOT GIVENUNK [place] Insurance:SELF PAY [facility] Number: Effective Repository Date:2018-10-02 06/01/2018 DON S [id number] Primary DON S KAUFDOB: [facility] Insurance:MEDICARE [id number]. Mary-Corwin Medical Center [address]Ngb: (330) Number: Repository [phone] () [id number] Date:2018-06-01 06/01/2018 Secondary DON S KAUFDOB: [place] Insurance:[facility] [id number] hospital Hospital Number: Repository [id number] Date:2018-06-[address], [place] [address]KY: 06/01/2018 Tertiary NOT GIVENUNK [place] Insurance:SELF PAY [facility] Number: Effective Repository Date:2018-06-01 04/05/2018 DON S [id number] Primary DON S KAUFDOB: [place] Insurance:MEDICARE [id number]. Mary-Corwin Medical Center [address]Ffn: (330) Number: Repository [phone] () [id number] Date:2017-11-08 04/05/2018 Secondary DON S KAUFDOB: [place] [facility] [id number] hospital Hospital Number: Repository [id number] Date:2017-11-[address], [place] [address]VB: 04/05/2018 Tertiary NOT GIVENUNK [place] Insurance:SELF PAY [facility] Number: Effective Repository Date:2017-11-08 03/27/2018 DON S [id number] Primary DON S KAUFDOB: [place] Insurance:MEDICARE [id number]. Mary-Corwin Medical Center [address]Ada: (330) Number: Repository [phone] () [id number] Date:2018-03-27 03/27/2018 Secondary DON S KAUFDOB: [place] Insurance:[facility] [id number] hospital Hospital Number: Repository [id number] Date:2018-03-27[address], [place] [address]MG: 03/27/2018 Tertiary NOT GIVENUNK [place] Insurance:SELF PAY [facility] Number: Effective Repository Date:2018-03-27 03/08/2018 DON S [id number] Primary DON S KAUFDOB: [place] Insurance:MEDICARE [id number]. Mary-Corwin Medical Center [address]Avq: (330) Number: Repository [phone] () [id number] Date:2018-02-08 03/08/2018 Secondary DON S KAUFDOB: [place] Insurance:[facility] [id number] hospital Hospital Number: Repository [id number] Date:2018-02-[address], [place] [address]WP: 03/08/2018 Tertiary NOT GIVENUNK [place] Insurance:SELF PAY [facility] Number: Effective Repository Date:2018-03-08 03/06/2018 DON S [id number] Primary DON S KAUFDOB: [place] Insurance:MEDICARE [id number] [facility] [place] A [facility] [address]Cae: (330) Number: Repository [phone] () [id number] Date:2018-03-06 03/06/2018 Secondary DON S KAUFDOB: [place] Insurance:BANKERS [id number] [facility] Hospital Number: Repository [id number] Date:2018-03-06[address], [place] [address]ZN: 03/06/2018 Tertiary NOT GIVENUNK [place] Insurance:SELF PAY [facility] Number: Effective Repository Date:2018-03-06 02/10/2018 DON S KAUFDOB: Primary DON S KAUFDOB: [facility] Insurance:MEDICARE [id number] [facility] Number: [place], [place] [id number] [place] [address]Mtx: [phone]) Date:2018-02-10 [id number]: ()Tel: [phone] [phone] () Name:PCGS (WP) Administrators [facility] () [address] [place] [address]EN: 02/10/2018 Secondary DON S KAUFDOB: [facility] Insurance:BANKERS [id number] [facility] Repository CASUALTYPolicy [place], [place] Number: [id number]: [phone] [id number] [phone] ()Tel: Date:2018-02-10 - [id number] () 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 [address], [place] [address]EG: 02/04/2018 DON S [id number] Primary DON S KAUFDOB: [place] Insurance:MEDICARE [id number], [place] PART A [place] [id number]: (330) Number: Repository [phone] () [id number] Date:2018-02-04 02/04/2018 Secondary DON S KAUFDOB: [place] Insurance:BANKERS [id number] hospital Hospital Number: Repository [id number] Date:2018-02-04[address], [place] [address]EF: 02/04/2018 Tertiary NOT GIVENUNK [place] Insurance:SELF PAY [facility] Number: Effective Repository Date:2018-02-04 02/04/2018 DON S [id number] Primary DON S KAUFDOB: [place] Insurance:MEDICARE [id number] [facility] A [place] [id number]: (330) Number: Repository [phone] () [id number] Date:2018-02-04 02/04/2018 Secondary DON S KAUFDOB: [place] Insurance:[facility] [id number] hospital Hospital Number: Repository [id number] Date:2018-02-04[address] [address]HP: 02/04/2018 Tertiary NOT GIVENUNK [place] Insurance:SELF PAY [facility] Number: Effective Repository Date:2018-02-04 02/04/2018 DON S [id number] Primary DON S KAUFDOB: [place] Insurance:MEDICARE [id number] Roanoke Community Hospital A [facility] [address]Afa: (330) Number: Repository [phone] () [id number] Date:2018-02-04 02/04/2018 Secondary DON S KAUFDOB: [place] Insurance:BANKERS [id number] R. Oishei [facility]'s [facility] Number: Repository [id number] Date:2018-02-04 [address], [place] [address]CM: 02/04/2018 Tertiary NOT GIVENUNK [place] Insurance:SELF PAY [facility] Number: Effective Repository Date:2018-02-04 02/04/2018 DON S [id number] Primary DON S KAUFDOB: [place] Insurance:MEDICARE [id number]. Mary-Corwin Medical Center [address]Jgk: (330) Number: Repository [phone] () [id number] Date:2018-02-04 02/04/2018 Secondary DON S KAUFDOB: [place] Insurance:[facility] [id number] hospital Hospital Number: Repository [id number] Date:2018-02-04 [address], [place] [address]DY: 02/04/2018 Tertiary NOT GIVENUNK [place] Insurance:SELF PAY [facility] Number: Effective Repository Date:2018-02-04 02/04/2018 DON S [id number] Primary DON S KAUFDOB: [place] Insurance:MEDICARE [id number]. Mary-Corwin Medical Center [address]Icv: (330) Number: Repository [phone] () [id number] Date:2018-02-04 02/04/2018 Secondary DON S KAUFDOB: [place] Insurance:[facility] [id number] hospital Hospital Number: Repository [id number] Date:2018-02-04 [address], [place] [address]YD: 02/04/2018 Tertiary NOT GIVENUNK [place] Insurance:SELF PAY [facility] Number: Effective Repository Date:2018-02-04 02/04/2018 DON S [id number] Primary DON S KAUFDOB: [place] Insurance:MEDICARE [id number], [place] PART A [facility] [address]Dsn: (330) Number: Repository [phone] () [id number] Date:2018-02-04 02/04/2018 Secondary DON S KAUFDOB: [place] [facility] [id number] hospital Hospital Number: Repository [id number] Date:2018-02-04[address], [place] [address]UJ: 02/04/2018 Tertiary NOT GIVENUNK [place] Insurance:SELF PAY [facility] Number: Effective Repository Date:2018-02-04 01/19/2018 Don S [id number] Primary Don S KaufDOB: [place] Insurance:MEDICARE [id number] View Regional Medical Center A [facility] [address]Mbp: (330) Number: Repository [phone] () [id number] Date:2018-01-17 01/19/2018 Secondary Don S KaufDOB: [place] Insurance:[facility] [id number] Specialty Hospital - [facility] Number: Repository [id number] Date:2018-01-17[address], [place] [address]TY: 01/19/2018 Tertiary NOT GIVENUNK [place] Insurance:SELF PAY [facility] Number: Effective Repository Date:2018-01-17 01/10/2018 Don S [id number] Primary Don S KaufDOB: [place] Insurance:MEDICARE [id number] View Regional Medical Center A [facility] [address]Sgk: (330) Number: Repository [phone] () [id number] Date:2018-01-10 01/10/2018 Secondary Don S KaufDOB: [place] Insurance:[facility] [id number] hospital Hospital Number: Repository [id number] Date:2018-01-10[address], [place] [address]MO: 01/10/2018 Tertiary NOT GIVENUNK [place] Insurance:SELF PAY [facility] Number: Effective Repository Date:2018-01-10 11/23/2017 Don S [id number] Primary Don S KaufDOB: [place] Insurance:MEDICARE [id number] [facility] [address]Dlx: (330) Number: Repository [phone] () [id number] Date:2006-04-28 11/23/2017 Secondary Don S KaufDOB: [place] Insurance:BANKERS [id number] R. Oishei [facility]'s [facility] Number: Repository [id number] Date:2017-11-04P [address], [place] [address]DY: 11/23/2017 Tertiary NOT GIVENUNK [place] Insurance:SELF PAY [facility] Number: Effective Repository Date:2017-11-04 11/18/2017 Don S [id number] Primary Don S KaufDOB: [place] Insurance:MEDICARE [id number] Carson County Memorial Hospital [address]Ysg: (330) Number: Repository [phone] () [id number] Date:2017-11-09 11/18/2017 Secondary Don S KaufDOB: [place] Insurance:BANKERS [id number] R. Oishei [facility]'s Hospital [facility] Number: Repository [id number] Date:2017-11-09P [address], [place] [address]YF: 11/18/2017 Tertiary NOT GIVENUNK [place] Insurance:SELF PAY [facility] Number: Effective Repository Date:2017-11-09
== END ==
PROVIDERS: Internal Medicine; Family Provider Family Medicine; PCP Family Medicine; Referring Provider Internal Medicine Cardiovascular Disease; Visit Provider Internal Medicine Cardiovascular Disease
DX: I12.9 Hypertensive chronic kidney disease with stage 1 through stage 4 chronic kidney disease, or unspecified chronic kidney disease (principal); N18.3 Chronic kidney disease, stage 3 (moderate); D63.1 Anemia in chronic kidney disease; E11.9 Type 2 diabetes mellitus without complications
CPT/HCPCS: 36415; 80053; 80061; 83036; 84443; 85027

== ENCOUNTER → 2019-01-08 14:54 | Outpatient (CLI) | payer MEDICARE, OTHER, SELFPAY ==
[2018-10-24 14:15] VITALS: BMI 47.0
[2019-01-08 17:43] LABS: Absolute Lymphocyte Count 1.76 X10^3/ul (0.83-4.51); Absolute Neutrophil Count 7.4 X10^3/uL (2.0-7.7); Basophil# 0.01 X10^3/uL; Basophil% 0.1 % (0-1); Eosinophil# 0.16 X10^3/uL; Eosinophils% 1.6 % (0-5); Hematocrit 37.5 % (40-54); Hemoglobin 11.8 g/dl (13.0-16.5); Lymphocyte # 1.76 X10^3/ul (4.0); Lymphocyte % 17.5 % (19-41); Mean Corp Hgb Conc 31.5 g/gl (32-36); Mean Corpuscular Hgb 30.8 pg (27.0-32.0); Mean Corpuscular Volume 97.9 fL (80-94); Mean Platelet Vol. 10.8 fl (6.2-12.0); Monocyte# 0.73 X10^3/uL; Monocyte% 7.3 % (0-10); Neutrophil # 7.35 X10^3/uL (2.7-7.7); POSITIVE COUNT NO; POSITIVE DIFFERENTIAL NO; POSITIVE MORPHOLOGY NO; Platelet Count 169 K/mm3 (150-450); RBC Distribution Width CV 14.1 % (11.6-14.6); RBC Distribution Width SD 48.7 fl (35.1-43.9); Red Blood Count 3.83 M/mm3 (4.6-6.2); White Blood Count 10.1 K/mm3 (4.4-11.0)
[2019-01-08 17:57] LABS: Anion Gap 7 (5-15); BUN 38 mg/dL (7-18); BUN/Creat Ratio 21.3 RATIO (10-20); Calcium,Total 8.8 mg/dL (8.5-10.1); Chloride 109 mmol/L (98-107); Creatinine, Serum 1.78 mg/dL (0.70-1.30); EST Glomerular Filtration Rate 40 mL/min (>60); Est Glom Filt Rate - Afr Amer 48 mL/min (>60); Glucose 134 mg/dL (74-106); Potassium 5.2 mmol/L (3.5-5.1); Sodium Level 143 mmol/L (136-145)
== END ==
PROVIDERS: Family Provider Family Medicine; PCP Family Medicine; Referring Provider Urology; Visit Provider Urology
DX: I10 Essential (primary) hypertension (principal); E11.9 Type 2 diabetes mellitus without complications
CPT/HCPCS: 36415; 80048; 85025

== ENCOUNTER 2019-02-06 20:02 | Emergency (ER) | payer OTHER, MEDICARE, SELFPAY ==
[2018-10-24 14:15] VITALS: BMI 47.0
[2019-02-06 20:03] VITALS: BP 145/83; PULSE 74; RESP 21; TEMP 36.4; O2SAT 96; BMI 47.3
[2019-02-06 20:06] VITALS: O2SAT 97
--- NOTE | 2019-02-06 20:17 | ED.RN ---
RN CALLED FOR EKG, PULLED OLD EKGS FOR
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
--- NOTE | 2019-02-06 20:44 | EKG12_ITS ---
Test Reason : Blood Pressure : / mmHG Vent. Rate : 074 BPM Atrial Rate : 053 BPM P-R Int : 000 ms QRS Dur : 164 ms QT Int : 440 ms P-R-T Axes : 000 -21 118 degrees QTc Int : 488 ms Atrial fibrillation with V pacing Left bundle branch block Abnormal ECG Confirmed by DON BAIG, JEAN CLAUDE ([id number]), newspaper editor managing BRENDA CANTRELL ([id number]) on 02/08/2019 11:20:23 AM Referred By: ORION Confirmed By:JEAN CLAUDE OCHOA MD
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
--- NOTE | 2019-02-06 20:50 | RAD_ITS ---
STUDY: X-RAY CHEST REASON FOR EXAM: Male, 78 years old. Right-sided chest pain. TECHNIQUE: Single frontal view of the chest. COMPARISON: February 05, 2018 FINDINGS: There is no new focal consolidation. Sternal cerclage wires are present from a prior sternotomy. The cardiac silhouette is stable. Normal mediastinum and baudilio. Normal visualized pulmonary arteries. There is atherosclerotic calcification of the aortic arch with tortuosity. Normal visualized thoracic spine. Normal visualized ribs, clavicles, and shoulders. There is no demonstrated abnormality of the visualized soft tissue structures of the upper abdomen. RAD/Chest 1 View (Portable) IMPRESSION: No acute cardiopulmonary process. Electronically Signed: Elisa Hu MD at 21:55 EDT Tel , Service support ,
[2019-02-06] MEDS: 0.9% Normal Saline 1,000 ML 150 ML IV (21:08)
[2019-02-06 21:28] LABS: Absolute Lymphocyte Count 2.68 X10^3/ul (0.83-4.51); Absolute Neutrophil Count 6.4 X10^3/uL (2.0-7.7); Basophil# 0.06 X10^3/uL; Basophil% 0.6 % (0-1); Eosinophil# 0.45 X10^3/uL; Eosinophils% 4.3 % (0-5); Hemoglobin 12.4 g/dl (13.0-16.5); Lymphocyte # 2.68 X10^3/ul (4.0); Lymphocyte % 25.5 % (19-41); Mean Corp Hgb Conc 31.8 g/gl (32-36); Mean Corpuscular Hgb 30.5 pg (27.0-32.0); Mean Corpuscular Volume 96.1 fL (80-94); Mean Platelet Vol. 10.2 fl (6.2-12.0); Monocyte# 0.85 X10^3/uL; Monocyte% 8.1 % (0-10); Neutrophil # 6.42 X10^3/uL (2.7-7.7); Neutrophil % 61.1 % (47-70); Platelet Count 161 K/mm3 (150-450); RBC Distribution Width CV 13.9 % (11.6-14.6); Red Blood Count 4.06 M/mm3 (4.6-6.2); White Blood Count 10.5 K/mm3 (4.4-11.0)
[2019-02-06 21:29] LABS: POSITIVE COUNT NO; POSITIVE DIFFERENTIAL NO; POSITIVE MORPHOLOGY NO
[2019-02-06 21:34] LABS: International Normalized Ratio 1.9; Prothrombin Time (Protime)PT. 21.3 SECONDS (11.7-14.9)
[2019-02-06 21:41] LABS: ALB/GLOB Ratio 0.9 RATIO (0.9-2.4); AST(SGOT) 20 U/L (15-37); Alanine Aminotransfer ALT/SGPT 24 U/L (16-61); Albumin, Serum 3.6 g/dL (3.2-5.0); Alkaline Phosphatase 127 U/L (45-117); Anion Gap 11 (5-15); BUN 55 mg/dL (7-18); BUN/Creat Ratio 23.9 RATIO (10-20); Calcium,Total 8.8 mg/dL (8.5-10.1); Chloride 108 mmol/L (98-107); EST Glomerular Filtration Rate 29 mL/min (>60); Est Glom Filt Rate - Afr Amer 36 mL/min (>60); Estimated Creatinine Clearance 22.52 ml/min; Globulin 4.1 g/dL (2.2-4.2); Glucose 75 mg/dL (74-106); Potassium 4.9 mmol/L (3.5-5.1); Protein, Total 7.7 g/dL (6.4-8.2); Sodium Level 144 mmol/L (136-145)
[2019-02-06 22:19] VITALS: BP 128/79; PULSE 83; RESP 24; O2SAT 97
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
[2019-02-06 23:40] VITALS: BP 123/87; PULSE 89; RESP 17; O2SAT 98
== END 2019-02-06 23:41 | disposition home or self-care (01) ==
LOC: ED 20:59
PROVIDERS: Emergency Provider Emergency Medicine; Family Provider Family Medicine; PCP Family Medicine
DX: S09.90XA Unspecified injury of head, initial encounter (principal); S16.1XXA Strain of muscle, fascia and tendon at neck level, initial encounter; V59.40XA Driver of pick-up truck or van injured in collision with unspecified motor vehicles in traffic accident, initial encounter; Y93.89 Activity, other specified; Y92.410 Unspecified street and highway as the place of occurrence of the external cause; I25.10 Atherosclerotic heart disease of native coronary artery without angina pectoris; I48.91 Unspecified atrial fibrillation; E11.9 Type 2 diabetes mellitus without complications; Z95.1 Presence of aortocoronary bypass graft; Z79.4 Long term (current) use of insulin; Z79.82 Long term (current) use of aspirin; Z79.01 Long term (current) use of anticoagulants; Z79.899 Other long term (current) drug therapy
CPT/HCPCS: 70450; 71045; 72125; 80053; 84484; 85025; 85610; 93005; 96360; 96361; 99285; J7030; A4216

== ENCOUNTER → 2019-04-03 13:04 | Outpatient (CLI) | payer MEDICARE, OTHER, SELFPAY ==
[2019-04-03 13:50] LABS: Absolute Lymphocyte Count 1.76 X10^3/ul (0.83-4.51); Absolute Neutrophil Count 5.9 X10^3/uL (2.0-7.7); Basophil# 0.02 X10^3/uL; Basophil% 0.2 % (0-1); Eosinophil# 0.19 X10^3/uL; Eosinophils% 2.2 % (0-5); Hematocrit 35.4 % (40-54); Hemoglobin 11.4 g/dl (13.0-16.5); Lymphocyte # 1.76 X10^3/ul (4.0); Lymphocyte % 20.5 % (19-41); Mean Corp Hgb Conc 32.2 g/gl (32-36); Mean Corpuscular Hgb 30.4 pg (27.0-32.0); Mean Corpuscular Volume 94.4 fL (80-94); Mean Platelet Vol. 10.6 fl (6.2-12.0); Monocyte# 0.63 X10^3/uL; Monocyte% 7.3 % (0-10); Neutrophil # 5.94 X10^3/uL (2.7-7.7); Neutrophil % 69.2 % (47-70); Platelet Count 153 K/mm3 (150-450); RBC Distribution Width CV 13.7 % (11.6-14.6); RBC Distribution Width SD 44.7 fl (35.1-43.9); Red Blood Count 3.75 M/mm3 (4.6-6.2); White Blood Count 8.6 K/mm3 (4.4-11.0)
[2019-04-03 13:52] LABS: POSITIVE COUNT NO; POSITIVE DIFFERENTIAL NO; POSITIVE MORPHOLOGY NO
[2019-04-03 13:59] LABS: Protein, Urine (Random) 52.7 mg/dL (<11.9); Protein:Creat Ratio 1017 mg/g CRE (0-200)
[2019-04-03 14:13] LABS: Albumin, Serum 3.4 g/dL (3.2-5.0); BUN 57 mg/dL (7-18); Calcium,Total 9.2 mg/dL (8.5-10.1); Chloride 111 mmol/L (98-107); Creatinine, Serum 2.28 mg/dL (0.70-1.30); EST Glomerular Filtration Rate 30 mL/min (>60); Est Glom Filt Rate - Afr Amer 36 mL/min (>60); Glucose 117 mg/dL (74-106); Phosphorus 2.8 mg/dL (2.5-4.9); Potassium 5.8 mmol/L (3.5-5.1); Sodium Level 141 mmol/L (136-145); Uric Acid 5.9 mg/dL (3.5-7.2)
[2019-04-03 14:20] LABS: Hemoglobin A1c 6.3 % (4.2-6.3)
== END ==
PROVIDERS: Family Provider Family Medicine; PCP Family Medicine; Referring Provider Internal Medicine Nephrology; Visit Provider Internal Medicine Nephrology
DX: I12.9 Hypertensive chronic kidney disease with stage 1 through stage 4 chronic kidney disease, or unspecified chronic kidney disease (principal); E11.22 Type 2 diabetes mellitus with diabetic chronic kidney disease; N18.3 Chronic kidney disease, stage 3 (moderate); D63.1 Anemia in chronic kidney disease; E11.65 Type 2 diabetes mellitus with hyperglycemia; E11.21 Type 2 diabetes mellitus with diabetic nephropathy
CPT/HCPCS: 36415; 80069; 82570; 83036; 84156; 84550; 85025

== ENCOUNTER → 2019-08-16 08:44 | Outpatient (CLI) | payer MEDICARE, OTHER, SELFPAY ==
[2019-05-04 13:59] VITALS: BMI 48.9
[2019-08-16 10:23] LABS: Protein, Urine (Random) 116.5 mg/dL (<11.9); Protein:Creat Ratio 620 mg/g CRE (0-200)
[2019-08-16 10:30] LABS: Hemoglobin 10.7 g/dL (13.0-16.5); Mean Corp Hgb Conc 31.5 g/dL (32-36); Mean Corpuscular Hgb 30.8 pg (27.0-32.0); Mean Platelet Vol. 10.9 fl (6.2-12.0); Platelet Count 147 K/mm3 (150-450); RBC Distribution Width CV 13.7 % (11.6-14.6); Red Blood Count 3.47 M/mm3 (4.6-6.2); White Blood Count 6.6 K/mm3 (4.4-11.0)
[2019-08-16 10:41] LABS: Albumin, Serum 3.1 g/dL (3.2-5.0); BUN 42 mg/dL (7-18); BUN/Creat Ratio 17.2 RATIO (10-20); Calcium,Total 8.1 mg/dL (8.5-10.1); Chloride 112 mmol/L (98-107); Creatinine, Serum 2.44 mg/dL (0.70-1.30); EST Glomerular Filtration Rate 27 mL/min (>60); Est Glom Filt Rate - Afr Amer 33 mL/min (>60); Glucose 132 mg/dL (74-106); Phosphorus 3.1 mg/dL (2.5-4.9); Potassium 5.4 mmol/L (3.5-5.1); Sodium Level 142 mmol/L (136-145)
[2019-08-16 12:59] LABS: PTHIN 220.8 pg/mL (18.4-80.1)
== END ==
PROVIDERS: Family Provider Family Medicine; PCP Family Medicine; Referring Provider Internal Medicine Nephrology; Visit Provider Internal Medicine Nephrology
DX: N18.3 Chronic kidney disease, stage 3 (moderate) (principal); N17.9 Acute kidney failure, unspecified; R80.9 Proteinuria, unspecified; R60.9 Edema, unspecified
CPT/HCPCS: 36415; 80069; 82570; 83970; 84156; 85027

== ENCOUNTER 2019-09-07 22:40 | Inpatient (IN) | payer MEDICARE, OTHER, SELFPAY ==
[2019-05-04 13:59] VITALS: BMI 48.9
[2019-09-07] VITALS (7 sets, daily range): BP systolic 115–177; BP diastolic 59–83; PULSE 89–115; RESP 20–36; TEMP 37.2–37.5; O2SAT 77–98; BMI 42.0
--- NOTE | 2019-09-07 22:58 | RAD_ITS ---
STUDY: X-RAY CHEST REASON FOR EXAM: Male, 79 years old. Short of breath TECHNIQUE: Single AP portable view of the chest. COMPARISON: Prior study of 02/06/2019 FINDINGS: campus monitor leads are present. There is an ill-defined right basilar infiltrate and/or atelectasis. There is no demonstrated pleural abnormality. There is mild cardiomegaly. Status post sternotomy changes are noted. Normal mediastinum and baudilio. Normal visualized pulmonary arteries. There are calcified plaques of the aortic arch. Normal visualized thoracic spine. Normal visualized ribs, clavicles, and shoulders. There is no demonstrated abnormality of the visualized soft tissue structures of the upper abdomen. RAD/Chest 1 View (Portable) IMPRESSION: Mild cardiomegaly. Status post tenotomy. Ill-defined infiltrate and/or atelectasis of the right lung base, new in the interval. Calcified plaques of the aortic arch. Electronically Signed: Duong Good MD at 23:28 EDT , Service support ,
--- NOTE | 2019-09-07 22:59 | EKG12_ITS ---
Test Reason : DYSRHYTHMIA Blood Pressure : / mmHG Vent. Rate : 093 BPM Atrial Rate : 093 BPM P-R Int : 232 ms QRS Dur : 152 ms QT Int : 386 ms P-R-T Axes : 000 -26 114 degrees QTc Int : 479 ms Sinus rhythm with 1st degree A-V block Left bundle branch block Abnormal ECG Confirmed by BHAVNA BAIG, GALE ([id number]), editorial project manager LEX CARUSO ([id number] on 09/12/2019 9:40:30 AM Referred By: SYL Confirmed By:REJI HUGGINS MD
--- NOTE | 2019-09-07 23:01 | ED.DCSUM_ITS ---
History of Present Illness Chief Complaint: Shortness of Breath Detail of Chief Complaint: And chills per Informant: Patient, Family, Significant Other Onset: Today Context: Gradual Onset Timing: Continuous Quality: Shortness of breath Location: Respiratory Current Severity: Moderate Maximum Severity: Severe Worsened by: Improved with oxygen Relieved by: Nothing Associated Symptoms: Chills Narrative: Patient is an elderly male with multiple medical problems who presents with shortness of breath that started this afternoon and chills per . He reports feeling cold when he had chills. He does report cough. Cough is nonproductive. He does have 2 pillow orthopnea. states he was told by bank appraiser that his kidneys are not working well. He denies chest pain of any type. He denies rhinorrhea, congestion or postnasal drainage. Denies ear pain, ringing in his ears or decreased hearing. He denies throat pain. He denies abdominal pain, nausea, vomiting or diarrhea. He denies urologic symptoms. He does report swelling of his lower extremity's. He denies history of PE or DVT. He is not on oxygen at home. He does wear his CPAP mask and uses his machine at night for obstructive sleep apnea. Prior similar symptoms: Yes Recent Illness/Hospitalization: No - Past Medical History (1) Atherosclerosis of coronary artery bypass graft without angina pectoris Status: Chronic Comment: Redo CABG x 3 SVG-LAD, SVG OM of Cx, SVG- PDA of RCA and aortic valve replacement with #25 Pietro-Sheppard valve. 02/24/2016 CABG x 4 OAKLEY-D1, SVG-Distal LAD, SVG-Lat CX, SVG-RCA 12/15/98 (2) Chronic atrial fibrillation Status: Chronic Comment: On coumadin, managed by PCP (3) Chronic renal failure, stage 3 (moderate) Status: Chronic (4) Hyperlipemia Status: Chronic (5) Hypertension Status: Chronic (6) Left bundle branch block Status: Chronic (7) Morbid obesity with BMI of 45.0-49.9, adult Status: Chronic (8) Non-rheumatic aortic stenosis Status: Chronic (9) Venous insufficiency of both lower extremities Status: Chronic (10) H/O aortic valve replacement Status: Resolved Comment: aortic valve replacement with #25 Pietro-Sheppard valve. 02/24/2016 (11) H/O coronary artery bypass surgery Status: Resolved Comment: Redo CABG x 3 SVG-LAD, SVG OM of Cx, SVG- PDA of RCA and aortic valve replacement with #25 Pietro-Sheppard valve. 02/24/2016 CABG x 4 OAKLEY-D1, SVG-Distal LAD, SVG-Lat CX, SVG-RCA 12/15/98 Past Medical History - Allergies and Home Meds Allergies/Adverse Reactions: Allergies Penicillins [PCN] Allergy (Verified 05/04/19 14:00) Swelling Primary Care Physician: Romaine Velazquez MD [Primary Care Provider] - Surgical History: cataract, coronary bypass surgery - x 3, - - Aortic valve replacement, bilateral carpal tunnel release, PICC line. Lives: Spouse/ Significant Other Smoking Status: Never smoker Alcohol: None Drugs: None - Family History Maternal Family History: Family History (Last Reviewed 10/24/18 @ 14:45 by Christian Shook MD) Father Myocardial infarction Mother CVA (cerebral vascular accident) Brother CAD (coronary artery disease) Diabetes Family History: Reports: Stroke - mother at age 60 from stroke Sibling Family History: Family History (Last Reviewed 10/24/18 @ 14:45 by Christian Shook MD) Father Myocardial infarction Mother CVA (cerebral vascular accident) Brother CAD (coronary artery disease) Diabetes Family History: Reports: Seizures - recently diagnosed Review of Systems General: Reports: Chills, Sweats. Denies: Fever, Malaise, Subjective Eyes: Denies: Visual changes - bilaterally, Blurred Vision - bilaterally ENT: Denies: Bilateral ear pain, Rhinorrhea, Sore throat Cardiovascular: Reports: Heart racing - 135. Pulse ox at the time was 73% on room air. Denies: Chest pain, Palpitations Respiratory: Reports: Dyspnea, Cough, Dyspnea on exertion, Orthopnea. Denies: Sputum Gastrointestinal: Denies: Abdominal pain, Nausea, Vomiting, Diarrhea, Melena, Hematochezia Genitourinary: Denies: Dysuria, Hematuria, Frequency Musculoskeletal: Reports: Swelling. Denies: Myalgias, Arthralgias, Neck pain, Back pain, Extremity Pain Skin: Denies: Rash, Wounds Neurological: Reports: Weakness. Denies: Headache, Numbness Hematologic: Denies: Easy bruising, Easy bleeding Allergy: Denies: Uticaria, Swelling of the mouth, Swelling of the tongue Physical Exam Vital Signs/Narrative: Vital Signs Temp Pulse Resp BP Pulse Ox 09/07/19 22:48 93 32 H 177/83 H 92 09/07/19 22:41 99.5 F H 115 H 36 H 163/59 H 77 Inital Vital Signs reviewed: Yes General: Well nourished, Well developed, Obese, Unkempt Head: Normocephalic, Atraumatic Eyes: Perrl, EOMI. Negative for: Pale conjunctiva, Scleral icterus ENT: Moist mucous membranes, No rhinorrhea, TM's clear Neck: Supple, Nontender, No lymphadenopathy, No JVD Cardiovascular: Regular rhythm, No murmurs, Normal S1, Normal S2, Tachycardia Respiratory: Chest nontender, Rales, Decreased Air Movement. Negative for: No distress, CTA bilaterally Abdomen: Soft, Nontender, No masses, Hypoactive bowel sounds. Negative for: Nondistended, Normal bowel sounds, Hepatomegaly, Splenomegaly Rectal: Deferred Back: Nontender. Negative for: Normal Inspection Extremities: Nontender, Edema - 1+ pitting edema Skin: No rash, No Trauma, Pallor. Negative for: Cyanosis, Diaphoresis, Jaundice Neurological: Alert, Oriented x3, Cranial nerves II-XII grossly intact, Normal Strength, Normal Sensation Psychological: Normal affect, Normal Mood Diagnostic/Tx/Re-eval Chest X-Ray - ED: 1 View, Read by ED Physician, Normal, Bony Structures, Cardiomegaly, CHF, Right Infiltrate - RLL, - - Sternal wires noted. Film interpreted by me at 2311. Impressions Chest X-Ray 09/07/19 22:58 IMPRESSION: Mild cardiomegaly. Status post tenotomy. Ill-defined infiltrate and/or atelectasis of the right lung base, new in the interval. Calcified plaques of the aortic arch. Electronically Signed: Duong Good MD at 23:28 EDT , Service support , 09/07/19 22:58 Chest 1 View (Portable) [RAD] Stat Laboratory Results 09/07/19 09/07/19 09/07/19 22:50 22:50 22:50 WBC 19.2 H RBC 3.67 L Hgb 11.2 L Hct 35.2 L MCV 95.9 H MCH 30.5 MCHC 31.8 L RDW Std Deviation 48.1 H RDW Coeff of Yeny 13.7 Plt Count 219 MPV 10.6 Immature Gran % (Auto) 0.700 Neut % (Auto) 83.6 H Lymph % (Auto) 9.2 L [place] % (Auto) 5.4 Eos % (Auto) 0.7 Baso % (Auto) 0.4 Absolute Neuts (auto) 16.0 H Absolute Lymphs (auto) 1.76 Nucleated RBC % 0 Specimen Type Sample Site pH Bicarbonate Actual POC Total CO2 Base Excess O2 Saturation ABG pCO2 ABG pO2 Pavel Test O2 Delivery Device Liter Flow Blood Gas Notified Whom Blood Gas Notified Time Sodium 139 Potassium 5.3 H Chloride 109 H Carbon Dioxide 22.0 Anion Gap 8 BUN 60 H Creatinine 2.35 H Estim Creat Clear Calc 25.91 Est GFR (MDRD) Af Amer 35 L Est GFR (MDRD) Non-Af 29 L BUN/Creatinine Ratio 25.5 H Glucose 245 H Lactic Acid Calcium 8.7 Total Bilirubin 0.80 AST 19 ALT 25 Alkaline Phosphatase 140 H Troponin I 0.016 B-Natriuretic Peptide 705.2 H Total Protein 7.9 Albumin 3.2 Globulin 4.7 H Albumin/Globulin Ratio 0.7 L 09/07/19 09/07/19 23:27 23:40 WBC RBC Hgb Hct MCV MCH MCHC RDW Std Deviation RDW Coeff of Yeny Plt Count MPV Immature Gran % (Auto) Neut % (Auto) Lymph % (Auto) [place] % (Auto) Eos % (Auto) Baso % (Auto) Absolute Neuts (auto) Absolute Lymphs (auto) Nucleated RBC % Specimen Type ART Sample Site R Radial pH 7.39 Bicarbonate Actual 19.4 L POC Total CO2 20 Base Excess -5 L O2 Saturation 93 L ABG pCO2 32.0 L ABG pO2 68 L Pavel Test POS O2 Delivery Device Nasal Can Liter Flow 4.0 Blood Gas Notified Whom ED Blood Gas Notified Time 2320 Sodium Potassium Chloride Carbon Dioxide Anion Gap BUN Creatinine Estim Creat Clear Calc Est GFR (MDRD) Af Amer Est GFR (MDRD) Non-Af BUN/Creatinine Ratio Glucose Lactic Acid 1.0 Calcium Total Bilirubin AST ALT Alkaline Phosphatase Troponin I B-Natriuretic Peptide Total Protein Albumin Globulin Albumin/Globulin Ratio Elevated white count and chills suspect patient has both right lower lobe pneumonia and mild heart failure. BNP is elevated 705. There is also evidence of end-stage renal disease. Lactate is normal. ABG reveals increased AA gradient with no acute acid-base disturbance or hypercapnia. - EKG Initial EKG Interpretation: Sinus Rhythm - Sinus rhythm with ventricular rate of 93 and first-degree AV block. There is also left bundle branch block. Left bundle branch block is old. LA interval is 232 ms. QS duration 1052 ms. QT durations 386 ms. [place] to left. - Medical Decision Making With history of CHF, coronary disease and bilateral rales with history of chronic atrial fib need to rule out congestive heart failure. Because he complains of chills lactate was obtained for sepsis work-up including appropriate blood work. EKG was obtained to evaluate for acute ischemia. Troponin to evaluate for non-STEMI since his EKG does not reveal any acute ischemia. Differential includes cardiac ischemia with congestive heart failure, fluid overload secondary to noncompliance with diet and renal failure, pneumonia, need to consider pulmonary embolus as well. ABG was obtained because of concern for CO2 retention. Pulse ox ranges between 9090% on oxygen by nasal cannula. Chest x-ray reveals right lower lobe infiltrate. Is also cephalization. Since patient has bilateral rales cephalization edema JVD is treated with nitro drip for preload and afterload reduction since his blood pressure is elevated. He also received IV Lasix. There is an infiltrate right lower lobe as well. This probably represents pneumonia since he did complain of chills prior to presentation. Blood cultures were obtained and received 1 dose of levofloxacin. He did not receive Rocephin azithromycin because he is allergic to penicillin with swelling . - Critical Care Time Critical care time (excluding procedures): 30-74 minutes - Critical care time 33 minutes, Discussing w/Patient &/or Family/Durable Medical Equipment Technician, Discussing w/Consultants, Arranging Admission or Transfer ED Disposition - Plan for ED Patient: Disposition: Acute Care [facility] Diagnosis: Acute respiratory failure with hypoxia, Right lower lobe pneumonia, Acute exacerbation of CHF (congestive heart failure), Lymphedema, Hyperlipemia, Hypertension, Chronic renal failure, stage 3 (moderate) Referrals: Romaine Velazquez MD [Primary Care Provider] -
[2019-09-07] MEDS: Nitroglycerin Infusion 250 ML 3 MG CONT INF (23:21)
[2019-09-07] MEDS: Furosemide 100 MG/10 ML Vial 80 MG IV (23:21)
[2019-09-07 23:30] LABS: Allen Test POS; Base Excess -5 mmol/L (-2 to +2); Bicarbonate 19.4 mmol/L (22-26); Blood Gas Specimen Type ART; O2 Delivery Device Nasal Can; PO2 68 mmHG (75-100); SITE R Radial; SO2 93 % (95-99); Time Given 2320; Total Carbon Dioxide 20 mmol/L; pH 7.39 (7.35-7.45)
[2019-09-07 23:42] LABS: Absolute Lymphocyte Count 1.76 X10^3/uL (0.83-4.51); Basophil# 0.08 X10^3/uL; Basophil% 0.4 % (0-1); Eosinophil# 0.14 X10^3/uL; Eosinophils% 0.7 % (0-5); Hematocrit 35.2 % (40-54); Hemoglobin 11.2 g/dL (13.0-16.5); Lymphocyte # 1.76 X10^3/ul (4.0); Lymphocyte % 9.2 % (19-41); Mean Corp Hgb Conc 31.8 g/dL (32-36); Mean Corpuscular Hgb 30.5 pg (27.0-32.0); Mean Corpuscular Volume 95.9 fL (80-94); Mean Platelet Vol. 10.6 fl (6.2-12.0); Monocyte# 1.03 X10^3/uL; Monocyte% 5.4 % (0-10); NRBC Flagged by Analyzer 0 % (0-5); Neutrophil # 16.01 X10^3/uL (2.7-7.7); Neutrophil % 83.6 % (47-70); Platelet Count 219 K/mm3 (150-450); RBC Distribution Width CV 13.7 % (11.6-14.6); RBC Distribution Width SD 48.1 fl (35.1-43.9); Red Blood Count 3.67 M/mm3 (4.6-6.2); White Blood Count 19.2 K/mm3 (4.4-11.0)
[2019-09-07 23:57] LABS: ALB/GLOB Ratio 0.7 RATIO (0.9-2.4); AST(SGOT) 19 U/L (15-37); Alanine Aminotransfer ALT/SGPT 25 U/L (16-61); Albumin, Serum 3.2 g/dL (3.2-5.0); Alkaline Phosphatase 140 U/L (45-117); Anion Gap 8 (5-15); BUN 60 mg/dL (7-18); BUN/Creat Ratio 25.5 RATIO (10-20); Calcium,Total 8.7 mg/dL (8.5-10.1); Chloride 109 mmol/L (98-107); Creatinine, Serum 2.35 mg/dL (0.70-1.30); EST Glomerular Filtration Rate 29 mL/min (>60); Est Glom Filt Rate - Afr Amer 35 mL/min (>60); Estimated Creatinine Clearance 25.91 ml/min; Globulin 4.7 g/dL (2.2-4.2); Glucose 245 mg/dL (74-106); Potassium 5.3 mmol/L (3.5-5.1); Protein, Total 7.9 g/dL (6.4-8.2); Sodium Level 139 mmol/L (136-145)
[2019-09-08] VITALS (44 sets, daily range): BP systolic 89–137; BP diastolic 39–77; PULSE 58–92; RESP 13–33; TEMP 36.1–37.2; O2SAT 89–100; BMI 47.0; BMI 47.1
[2019-09-08] MEDS: levoFLOXacin IV 750 MG/150 ML BAG 100 MG IV (00:08)
[2019-09-08 00:20] LABS: BNP,B-Type NATRIURETIC PEPTIDE 705.2 pg/mL (0-100)
--- NOTE | 2019-09-08 02:41 | HP.PCM_ITS ---
Problem List (1) Acute respiratory failure with hypoxia Status: Acute (2) Right lower lobe pneumonia Status: Acute (3) Acute exacerbation of CHF (congestive heart failure) Status: Chronic (4) Lymphedema Status: Acute (5) Acute on chronic diastolic (congestive) heart failure Status: Chronic (6) Chronic atrial fibrillation Status: Chronic Comment: On coumadin, managed by PCP (7) Atrial fibrillation with rapid ventricular response Status: Resolved (8) Atherosclerosis of coronary artery bypass graft without angina pectoris Status: Chronic Qualifiers: [place] vs. transplanted heart: [place] heart Qualified Code(s): I25.810 - Atherosclerosis of coronary artery bypass graft(s) without angina pectoris Comment: Redo CABG x 3 SVG-LAD, SVG OM of Cx, SVG- PDA of RCA and aortic valve replacement with #25 Pietro-Sheppard valve. 02/24/2016 CABG x 4 OAKLEY-D1, SVG-Distal LAD, SVG-Lat CX, SVG-RCA 12/15/98 (9) Non-rheumatic aortic stenosis Status: Chronic (10) H/O aortic valve replacement Status: Resolved Comment: aortic valve replacement with #25 Pietro-Sheppard valve. 02/24/2016 (11) H/O coronary artery bypass surgery Status: Resolved Comment: Redo CABG x 3 SVG-LAD, SVG OM of Cx, SVG- PDA of RCA and aortic valve replacement with #25 Pietro-Sheppard valve. 02/24/2016 CABG x 4 OAKLEY-D1, SVG-Distal LAD, SVG-Lat CX, SVG-RCA 12/15/98 (12) Hypertension Status: Chronic Qualifiers: Hypertension type: essential hypertension Qualified Code(s): I10 - Essential (primary) hypertension (13) Left bundle branch block Status: Chronic (14) Localized edema Status: Chronic (15) Venous insufficiency of both lower extremities Status: Chronic (16) Hyperlipemia Status: Chronic Qualifiers: Hyperlipidemia type: pure hypercholesterolemia Qualified Code(s): E78.00 - Pure hypercholesterolemia, unspecified; E78.0 - Pure hypercholesterolemia (17) Chronic renal failure, stage 3 (moderate) Status: Chronic (18) Morbid obesity with BMI of 45.0-49.9, adult Status: Chronic History of Present Illness Date of Admission: 09/08/19 Chief Complaint: Shortness of breath The patient is a 79 year old M with multiple comorbidities as mentioned above including COPD, CKD stage IV, heart failure came to ER with shortness of breath and dry cough. As per the patient's and granddaughter patient has been short of breath, dyspnea on exertion and dry cough for about weeks but it really got worse on the day of admission. Patient was not able to move because of shortness of breath. Complain of chills but no diaphoresis. Patient has leg edema and orthopnea and uses 2 pillows. He denies chest pain. When I saw the patient in ER, he is on BiPAP, short of breath therefore history mainly taken from patient's . Patient also has CKD stage IV and follows with [employer] operations Dr. Martin Patient has CPAP at home but does not use oxygen at home. In ED, patient T-max was 99.5, heart rate 115, RR 36/min and pulse ox 77% on room air. Chest x-ray was done and shows ill-defined infiltrate/atelectasis in the right lung base with hypoventilation. Patient also has bibasilar atelectasis. ABG Basic blood work in the ER, leukocytosis 19.2 thousand with neutrophils 83%, BNP 705. Chemistry shows K5.3, BUN 60, creatinine 2.35, estimated creatinine clearance 25, glucose 245, alkaline phosphatase 140, albumin 3.2. ABG 7.39/30 2 on 4 L of oxygen. Past Medical History Past Medical History (Chronic Problems): Chronic Problems (Last Reviewed 10/24/18 @ 14:45 by Christian Shook MD) Acute exacerbation of CHF (congestive heart failure) (Chronic) Acute on chronic diastolic (congestive) heart failure (Chronic) Chronic atrial fibrillation (Chronic) On coumadin, managed by PCP Atherosclerosis of coronary artery bypass graft without angina pectoris (Chronic) Redo CABG x 3 SVG-LAD, SVG OM of Cx, SVG- PDA of RCA and aortic valve replacement with #25 Pietro-Sheppard valve. 02/24/2016 CABG x 4 OAKLEY-D1, SVG-Distal LAD, SVG-Lat CX, SVG-RCA 12/15/98 Non-rheumatic aortic stenosis (Chronic) Hypertension (Chronic) Left bundle branch block (Chronic) Localized edema (Chronic) Venous insufficiency of both lower extremities (Chronic) Hyperlipemia (Chronic) Chronic renal failure, stage 3 (moderate) (Chronic) Morbid obesity with BMI of 45.0-49.9, adult (Chronic) Medical History: Medical History (Last Reviewed 10/24/18 @ 14:45 by Christian Shook MD) Acute on chronic diastolic (congestive) heart failure (Chronic) I50.33 Chronic atrial fibrillation (Chronic) I48.2 On coumadin, managed by PCP Atherosclerosis of coronary artery bypass graft without angina pectoris (Chronic) I25.810 Redo CABG x 3 SVG-LAD, SVG OM of Cx, SVG- PDA of RCA and aortic valve replacement with #25 Pietro-Sheppard valve. 02/24/2016 CABG x 4 OAKLEY-D1, SVG-Distal LAD, SVG-Lat CX, SVG-RCA 12/15/98 Non-rheumatic aortic stenosis (Chronic) I35.0 Hypertension (Chronic) I10 Left bundle branch block (Chronic) I44.7 Localized edema (Chronic) R60.0 Venous insufficiency of both lower extremities (Chronic) I87.2 Hyperlipemia (Chronic) E78.5 Chronic renal failure, stage 3 (moderate) (Chronic) N18.3 Morbid obesity with BMI of 45.0-49.9, adult (Chronic) E66.01, Z68.42 Anemia D64.9 COPD (chronic obstructive pulmonary disease) J44.9 Cholecystitis K81.9 Obstructive sleep apnea G47.33 Ocular migraine G43.109 TIA (transient ischemic attack) G45.9 Type 2 diabetes mellitus without complications E11.9 Allergies Penicillins [PCN] Allergy (Verified 05/04/19 14:00) Swelling Home Medications: Ambulatory Orders Medication Instructions Recorded Aspirin [Adult Low Dose Aspirin EC] 81 mg PO DAILY 07/11/16 Atorvastatin Calcium [Lipitor] 40 mg PO QHS 07/11/16 Multivitamin [Daily Multiple 1 ea PO DAILY 07/11/16 Vitamin] Pantoprazole Sodium [Protonix] 20 mg PO DAILY 07/11/16 Insulin Regular, Human [Novolin R] 25 unit SC BID 07/24/16 Allopurinol [Zyloprim] 150 mg PO DAILYCM #15 tab 08/27/16 Warfarin [Coumadin] 2.5 mg PO DAILY 10/06/16 Cholecalciferol (VIT D3) [Vitamin 1,000 unit PO DAILY 10/26/16 D3] Sertraline HCl [Zoloft] 25 mg PO DAILY 01/10/18 Iron Polysaccharide Complex 150 mg PO QODAY 02/04/18 [Ferrex 150] insulin NPH isophane U-100 human 25 unit SC BID ml 03/08/18 100 unit/mL subcutaneous suspension losartan 25 mg tablet 25 mg PO DAILY 10/24/18 metoprolol tartrate 25 mg tablet 25 mg PO BID #180 tab 10/24/18 Famotidine 20 mg PO DAILY 02/06/19 isosorbide mononitrate ER 30 mg 30 mg PO DAILY #90 tab 05/04/19 tablet,extended release 24 hr furosemide 40 mg tablet 40 mg PO DAILY #90 tab 06/06/19 levETIRAcetam tablet [Keppra 250 mg PO BID 09/08/19 tablet] Surgical History: Surgical History (Last Reviewed 10/24/18 @ 14:45 by Christian Shook MD) H/O aortic valve replacement (Resolved) Z95.2 aortic valve replacement with #25 Pietro-Sheppard valve. 02/24/2016 H/O coronary artery bypass surgery (Resolved) Onset Date: ~02/24/16 Z95.1 Redo CABG x 3 SVG-LAD, SVG OM of Cx, SVG- PDA of RCA and aortic valve replacement with #25 Pietro-Sheppard valve. 02/24/2016 CABG x 4 OAKLEY-D1, SVG-Distal LAD, SVG-Lat CX, SVG-RCA 12/15/98 Hx of cholecystectomy Onset Date: ~01/13/17 Z90.49 Surgical History: cataract, coronary bypass surgery - x 3, - - Aortic valve replacement, bilateral carpal tunnel release, PICC line. Psychiatric History: No pertinent psych hx Lives: Spouse/ Significant Other Smoking Status: Never smoker Alcohol: None Drugs: None - *Family History Maternal Family History: Family History (Last Reviewed 10/24/18 @ 14:45 by Christian Shook MD) Father Myocardial infarction Mother CVA (cerebral vascular accident) Brother CAD (coronary artery disease) Diabetes History Items: Stroke - mother at age 60 from stroke Sibling Family History: Family History (Last Reviewed 10/24/18 @ 14:45 by Christian Shook MD) Father Myocardial infarction Mother CVA (cerebral vascular accident) Brother CAD (coronary artery disease) Diabetes History Items: Seizures - recently diagnosed Review of Systems Constitutional: Reports: Chills, Fever, Weakness Cardiovascular: Denies: Chest Pain, Palpitations Respiratory: Reports: Cough, Shortness of Breath, Shortness of breath at rest, Shortness of breath upon exertion, Sputum production Genitourinary: Denies: Dysuria, Frequency, Urgency Musculoskeletal: Reports: Back Pain, Joint Pain Neurological: Reports: Balance problems, Incoordination Psychiatric: Reports: Anxiety Unable to obtain accurate/complete ROS d/t: Patient very short of breath on BiPAP VTE Information - Inpt Only VTE Present on Admission: No VTE Mechan Device Prophylaxis: None Patient Problems: Active and Suspected Problems (Last Reviewed 10/24/18 @ 14:45 by Christian Shook MD) Acute respiratory failure with hypoxia (Acute) Right lower lobe pneumonia (Acute) Lymphedema (Acute) - Physical Exam General: Oriented x3, Cooperative, Lethargic HEENT: Atraumatic, PERRLA, EOMI, Normocephalic Oral: Dry Mucosa, - - On BiPAP Neck: Supple, No JVD, Negative Carotid Bruits Lungs: Diminished - Air entry severely diminished, Rhonchi, Short of Breath, Using Accessory Muscles, Wheezes Cardiovascular: Regular Rhythm, Normal S1, Normal S2, No murmurs, Murmur Abdomen: Bowel Sounds Present, Soft, Non Tender, Non-Distended Extremities: Capillary Refill Less than 3 Seconds, Edema Skin: No rashes, No breakdown Musculoskeletal: No Tenderness to Palpation of Joints or Extremities, Arthritic Changes Neurological: Cranial nerves II-XII grossly intact, Deep Tendon Reflexes 2+/4 and Symmetrical Psych/Mental Status: Normal Affect, Appropriate Vital Signs Temp Pulse Resp BP Pulse Ox 98 F 75 14 107/50 L 97 09/08/19 01:15 09/08/19 01:15 09/08/19 01:15 09/08/19 01:15 09/08/19 01:15 Oxygen Flow Rate (L/min) 4 Oxygen Delivery Method CPAP Weight: 282 lb 13.649 oz Body Mass Index (BMI) 47.0 Finger Stick Blood Glucose 227 Intake and Output for Last 24 Hours 09/06/19 09/07/19 09/08/19 23:59 23:59 23:59 Intake Total 0.4 / 0.4 169.7 / 169.7 Balance 0.4 / 0.4 169.7 / 169.7 Laboratory Tests Past 24 Hrs 09/07/19 09/07/19 09/07/19 22:50 22:50 22:50 WBC 19.2 H RBC 3.67 L Hgb 11.2 L Hct 35.2 L MCV 95.9 H MCH 30.5 MCHC 31.8 L RDW Std Deviation 48.1 H RDW Coeff of Yeny 13.7 Plt Count 219 MPV 10.6 Immature Gran % (Auto) 0.700 Neut % (Auto) 83.6 H Lymph % (Auto) 9.2 L Ware % (Auto) 5.4 Eos % (Auto) 0.7 Baso % (Auto) 0.4 Absolute Neuts (auto) 16.0 H Absolute Lymphs (auto) 1.76 Nucleated RBC % 0 Specimen Type Sample Site pH Bicarbonate Actual POC Total CO2 Base Excess O2 Saturation ABG pCO2 ABG pO2 Pavel Test O2 Delivery Device Liter Flow Blood Gas Notified Whom Blood Gas Notified Time Sodium 139 Potassium 5.3 H Chloride 109 H Carbon Dioxide 22.0 Anion Gap 8 BUN 60 H Creatinine 2.35 H Estim Creat Clear Calc 25.91 Est GFR (MDRD) Af Amer 35 L Est GFR (MDRD) Non-Af 29 L BUN/Creatinine Ratio 25.5 H Glucose 245 H Lactic Acid Calcium 8.7 Total Bilirubin 0.80 AST 19 ALT 25 Alkaline Phosphatase 140 H Troponin I 0.016 B-Natriuretic Peptide 705.2 H Total Protein 7.9 Albumin 3.2 Globulin 4.7 H Albumin/Globulin Ratio 0.7 L 09/07/19 09/07/19 23:27 23:40 WBC RBC Hgb Hct MCV MCH MCHC RDW Std Deviation RDW Coeff of Yeny Plt Count MPV Immature Gran % (Auto) Neut % (Auto) Lymph % (Auto) Ware % (Auto) Eos % (Auto) Baso % (Auto) Absolute Neuts (auto) Absolute Lymphs (auto) Nucleated RBC % Specimen Type ART Sample Site R Radial pH 7.39 Bicarbonate Actual 19.4 L POC Total CO2 20 Base Excess -5 L O2 Saturation 93 L ABG pCO2 32.0 L ABG pO2 68 L Pvael Test POS O2 Delivery Device Nasal Can Liter Flow 4.0 Blood Gas Notified Whom ED Blood Gas Notified Time 2320 Sodium Potassium Chloride Carbon Dioxide Anion Gap BUN Creatinine Estim Creat Clear Calc Est GFR (MDRD) Af Amer Est GFR (MDRD) Non-Af BUN/Creatinine Ratio Glucose Lactic Acid 1.0 Calcium Total Bilirubin AST ALT Alkaline Phosphatase Troponin I B-Natriuretic Peptide Total Protein Albumin Globulin Albumin/Globulin Ratio Assessment/Plan All Active Problems (Last Reviewed 10/24/18 @ 14:45 by Christian Shook MD) Acute respiratory failure with hypoxia (Acute) Right lower lobe pneumonia (Acute) Lymphedema (Acute) Atrial fibrillation with rapid ventricular response (Resolved ~07/11/16) H/O aortic valve replacement (Resolved) H/O coronary artery bypass surgery (Resolved ~02/24/16) Cellulitis (Resolved) Chest pain (Resolved) Congestive heart failure (Resolved) Hypoxemia (Resolved) Moderate calcific aortic stenosis (Resolved) Ulcer of left lower extremity with fat layer exposed (Resolved) Ulcer of right lower leg (Resolved) Wound of right leg (Resolved) The patient is a 79 year old M with multiple comorbidities as mentioned above including COPD, CKD stage IV, heart failure came to ER with shortness of breath and dry cough. As per the patient's and granddaughter patient has been short of breath, dyspnea on exertion and dry cough for 2 weeks but it really got worse on the day of admission. Patient was not able to move because of shortness of breath. Complain of chills but no diaphoresis. Patient has leg edema and orthopnea and uses 2 pillows. Patient was last admitted in January 2018 for acute hypoxic respiratory failure secondary to COPD/acute on chronic diastolic heart failure. Echo 02/04/2018 was done and reported as moderate concentric LVH, EF 60%. Stable appearing bioprosthetic aortic valve apparatus. 1. Acute hypoxic respiratory failure secondary to COPD exacerbation and CHF exacerbation: Patient is being admitted in ICU. [employer] consulted. Currently on BiPAP. Wean BiPAP as needed with nasal oxygen with pulse ox more than 90% 2. CHF exacerbation with history of coronary artery disease status post CABG: Lasix 40 mg IV every 12 hourly and titrate as per the intake and output, daily weight measurement, kidney function and electrolytes. Fluid restriction 1500 mL. Cardiology has been consulted. EKG normal sinus rhythm with left bundle branch block, QRS interval 152 ms. Repeat echo. Continue his cardiac medications. His last cath was in January 2016 reported as severe graft disease with normal left main coronary artery disease. LAD totally occluded. RCA totally occluded. Left circumflex moderately severe disease proximal and mid segments. Saphenous vein graft to LAD with high-grade anastomotic site of stenosis. 3. COPD exacerbation: DuoNeb every 4 hourly with albuterol as needed, IV Solu- Medrol, incentive spirometry, chest physiotherapy. 4. Right lung base infiltrate/atelectasis possible pneumonia: Start on IV Levaquin in ED and will continue it. Pneumonia work-up including blood cultures x2, sputum culture, respiratory panel, MRSA nasal screen 5. CKD stage IV: Patient creatinine 2.35, BUN 60 most likely from cardiorenal disease with diuretic. Creatinine is on baseline as it was 2.3 in January 2019. Consult nephrology. 6. Obstructive sleep apnea patient is on CPAP at night 7. 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 History of aortic valve replacement 9. Seizure disorder patient is on Keppra did continue 10. Morbid obesity with BMI of 46 weight loss recommended 11 Degenerative joint disease 13. DVT prophylaxis on Coumadin. PT/INR ordered. Living will/CODE STATUS: Patient does not have living will. When asked the patient, he said he does not want to be intubated. When I asked about the , she she wants the patient to be intubated therefore there is contradiction and conflicts. Patient and family was advised to reach to the conclusion. For practical purposes, we will keep the patient full code. Patient was explained about full code which means in cardiopulmonary arrest, CPR/intubation, vent management, central line insertion for vessel pressure and tube feed. Patient is DNR CC Arrest. Total time spent in [id number] encounter in discussion of advanced directive 18 minutes. Laboratory Results 09/07/19 22:50: WBC 19.2 H, RBC 3.67 L, Hgb 11.2 L, Hct 35.2 L, MCV 95.9 H, MCH 30.5, MCHC 31.8 L, RDW Std Deviation 48.1 H, RDW Coeff of Yeny 13.7, Plt Count 219, MPV 10.6, Immature Gran % (Auto) 0.700, Neut % (Auto) 83.6 H, Lymph % (Auto) 9.2 L, Ware % (Auto) 5.4, Eos % (Auto) 0.7, Baso % (Auto) 0.4, Absolute Neuts (auto) 16.0 H, Absolute Lymphs (auto) 1.76, Nucleated RBC % 0 09/07/19 22:50: Sodium 139, Potassium 5.3 H, Chloride 109 H, Carbon Dioxide 22.0, Anion Gap 8, BUN 60 H, Creatinine 2.35 H, Estim Creat Clear Calc 25.91, Est GFR (MDRD) Af Amer 35 L, Est GFR (MDRD) Non-Af 29 L, BUN/Creatinine Ratio 25.5 H, Glucose 245 H, Calcium 8.7, Total Bilirubin 0.80, AST 19, ALT 25, Alk ronnie Phosphatase 140 H, Troponin I 0.016, Total Protein 7.9, Albumin 3.2, Globulin 4.7 H, Albumin/Globulin Ratio 0.7 L 09/07/19 22:50: B-Natriuretic Peptide 705.2 H 09/07/19 23:27: Specimen Type ART, Sample Site R Radial, pH 7.39, Bicarbonate Actual 19.4 L, POC Total CO2 20, Base Excess -5 L, O2 Saturation 93 L, ABG pCO2 32.0 L, ABG pO2 68 L, Pavel Test POS, O2 Delivery Device Nasal Can, Liter Flow 4.0, Blood Gas Notified Whom ED MD, Blood Gas Notified Time 2320 09/07/19 23:40: Lactic Acid 1.0 Clinical Impression(s) from Imaging Studies Chest X-Ray 09/07/19 22:58 IMPRESSION: Mild cardiomegaly. Status post tenotomy. Ill-defined infiltrate and/or atelectasis of the right lung base, new in the interval. Calcified plaques of the aortic arch. Code Visit Inpatient E&M: 28158 Init Hosp L3 Procedures: 12410 Advncd Care Plan 30 Min
[2019-09-08 04:21] LABS: Bedside Glucose 135 mg/dL (70-110)
[2019-09-08 04:27] LABS: Mucous, Urine 0 SEEN /hpf (<or=2+)
[2019-09-08 04:30] LABS: Absolute Lymphocyte Count 1.64 X10^3/uL (0.83-4.51); Absolute Neutrophil Count 12.6 X10^3/uL (2.0-7.7); Basophil# 0.05 X10^3/uL; Basophil% 0.3 % (0-1); Eosinophils% 0.6 % (0-5); Hematocrit 31.4 % (40-54); Hemoglobin 10.1 g/dL (13.0-16.5); Lymphocyte # 1.64 X10^3/ul (4.0); Lymphocyte % 10.6 % (19-41); Mean Corp Hgb Conc 32.2 g/dL (32-36); Mean Corpuscular Hgb 30.8 pg (27.0-32.0); Mean Corpuscular Volume 95.7 fL (80-94); Mean Platelet Vol. 10.2 fl (6.2-12.0); Monocyte# 0.97 X10^3/uL; Monocyte% 6.3 % (0-10); NRBC Flagged by Analyzer 0 % (0-5); Neutrophil # 12.56 X10^3/uL (2.7-7.7); Neutrophil % 81.6 % (47-70); Platelet Count 191 K/mm3 (150-450); RBC Distribution Width CV 13.7 % (11.6-14.6); RBC Distribution Width SD 48.3 fl (35.1-43.9); Red Blood Count 3.28 M/mm3 (4.6-6.2); White Blood Count 15.4 K/mm3 (4.4-11.0)
[2019-09-08 04:38] LABS: International Normalized Ratio 2.2; Prothrombin Time (Protime)PT. 24.7 SECONDS (11.7-14.9)
[2019-09-08 04:44] LABS: Color, Urine Straw (Yellow); Glucose, Dipstick Normal (Normal); Ketone-Dipstick Negative (Negative); Leukocyte Esterase-Dipstick 25 /ul (Negative); Magnesium 1.8 mg/dL (1.6-2.6); Nitrite-Dipstick Negative (Negative); Occult Blood-Urine 250 /ul (Negative); Protein-Dipstick 30 mg/dl (Negative); Urine Bilirubin Dipstick Negative (Negative); Urine Clarity Clear (Clear); Urine Urobilinogen Normal (Normal)
[2019-09-08 04:55] LABS: Bacteria RARE /hpf (None Seen); Red Blood Cells-Urine 0-5 SEEN /hpf (0-5); Squamous Epithelial Cells - UA 0-5 SEEN /hpf (0-5); White Blood Cells 0-5 SEEN /hpf (0-5)
[2019-09-08 05:04] LABS: Anion Gap 7 (5-15); BUN 63 mg/dL (7-18); BUN/Creat Ratio 28.3 RATIO (10-20); Calcium,Total 8.5 mg/dL (8.5-10.1); Chloride 112 mmol/L (98-107); Cholesterol 97 mg/dL (200); Creatinine, Serum 2.23 mg/dL (0.70-1.30); EST Glomerular Filtration Rate 30 mL/min (>60); Est Glom Filt Rate - Afr Amer 37 mL/min (>60); Estimated Creatinine Clearance 23.75 ml/min; Glucose 131 mg/dL (74-106); High Density Lipoprotein 33 mg/dL; Potassium 4.9 mmol/L (3.5-5.1); Sodium Level 142 mmol/L (136-145); Thyroid Stim Hormone (TSH) 3.64 uIU/mL (0.358-3.74); Triglycerides 83 mg/dL; Very Low Density Lipoprotein 17 mg/dL (5-40)
[2019-09-08] MEDS: levoFLOXacin IV 500 MG/100 ML BAG 100 MG IV (05:22)
[2019-09-08] MEDS: 0.9% NaCl Peripheral Flush Adult/Peds IV ×3 (05:23→13:44)
[2019-09-08] MEDS: 0.9% NaCl IVPB Med Flush (250 mL) 15 ML IV (05:23)
[2019-09-08 05:42] LABS: M R Staph aureus DNA By PCR Negative (Negative); Probe Check PASS; Specimen Processing Control PASS
--- NOTE | 2019-09-08 05:55 | ECHOCS_ITS ---
Reason For Study: SOB Procedure This was a 2D Doppler, Color Flow transthoracic echocardiogram. The study was technically difficult. Contrast injection was performed. Patient scanned upright due to SOB. Exam performed portable in ICU/CCU. Left Ventricle Normal size and thickness. The estimated ejection fraction is 45-50 %. Unable to assess diastolic dysfunction. anteroseptal hypokinesis. Right Ventricle Normal RV size. Normal systolic function. Atria The left atrium is moderately enlarged. The right atrium is not well visualized. Mitral Valve There is moderate mitral annular calcification. There is no mitral valve stenosis. No mitral valve insufficiency. Tricuspid Valve There is no tricuspid stenosis. Unable to estimate RV systolic pressure due to inadequate jet, pulmonary artery pressure probably normal. Aortic Valve There is no aortic stenosis. No aortic valve insufficiency. Stable appearing bioprosthetic aortic valve apparatus. Pulmonic Valve There is no pulmonic valvular stenosis. No pulmonic valve insufficiency. Great Vessels Normal aortic root. Pericardium/Pleural No pericardial effusion. Medication Diluted definity 3ml given slow IV push to enhance endocardial definition. MMode/2D Measurements & Calculations LVIDd: 4.0 cm IVSd: 1.5 cm LVOT diam: 2.0 cm LVIDs: 3.5 cm LVPWd: 1.2 cm FS: 12.5 % LVOT area: 3.2 cm2 LA dimension: 5.2 cm Doppler Measurements & Calculations MV E max malini: 134.2 cm/sec MV V2 max: 183.0 cm/sec MV P1/2t max malini: 183.9 cm/sec MV max P.4 mmHg MV P1/2t: 64.4 msec MV V2 mean: 89.2 cm/sec MV mean P.0 mmHg MV dec slope: 836.5 cm/sec2 MV V2 VTI: 38.1 cm MVA(P1/2t): 3.4 cm2 MVA(VTI): 1.4 cm2 Ao V2 max: 144.9 cm/sec LV V1 max: 88.5 cm/sec SV(LVOT): 52.5 ml Ao max P.4 mmHg LV V1 max P.1 mmHg Ao V2 mean: 97.9 cm/sec LV V1 mean P.5 mmHg Ao mean P.4 mmHg LV V1 mean: 56.5 cm/sec Ao V2 VTI: 27.2 cm LV V1 VTI: 16.5 cm MICHAEL(I,D): 1.9 cm2 MICHAEL(V,D): 1.9 cm2 PA V2 max: 105.0 cm/sec TR max malini: 247.9 cm/sec TR max P.6 mmHg Interpretation Summary The study was technically difficult. Diluted definity 3ml given slow IV push to enhance endocardial definition. The estimated ejection fraction is 45-50 %. anteroseptal hypokinesis Unable to assess diastolic dysfunction. The left atrium is moderately enlarged. The study was technically difficult. Ordering Physician: Rigoberto Ashley Referring Physician: Romaine Velazquez Performed By: Vincent Fleming RCS
--- NOTE | 2019-09-08 06:20 | CON.PCM_ITS ---
Reason for Consult Date of Consultation: 09/08/19 Reason for Consultation: Acute respiratory failure History of Present Illness: The patient is a 79-year-old male, with a history as outlined below, who presented to the emergency department on September 07 with complaints of shortness of breath. The patient has a known history of ischemic cardiomyopathy status post CABG, along with aortic valve replacement and paroxysmal atrial fibrillation. He is currently followed by Dr. Shook in the cardiology clinic, having last been seen in their office in April 2019. Surface echocardiogram from January 2018 revealed moderate concentric LVH with an ejection fraction of 60%. Pulmonary artery systolic pressure was estimated to be 34 mmHg. On presentation to the emergency department, the patient was noted to be febrile with a temperature of 99.5 ?F. The patient was initially tachycardic, but was hemodynamically stable. The patient was tachypneic and hypoxemic on room air. Initial laboratory evaluation revealed an elevated white blood cell count to 19,000. Arterial blood gas obtained on 4 L/min revealed a pH of 7.39 with a corresponding PCO2 of 32 and PO2 of 68. Chemistry profile was notable for a potassium of 5.3, chloride of 109 and creatinine of 2.35. AST and ALT were within normal limits. Alkaline phosphatase was increased to 140. BNP was increased to 705. Troponin was negative. UA was largely unrevealing. MRSA screen was negative. Plain film chest x-ray revealed cardiomegaly and what appears to be a possible right lower lobe infiltrate. Given that the patient's blood pressures were elevated in the emergency department with systolics in the 170s, the patient appears to have been started on a continuous nitro infusion. The patient was also treated with IV diuretic therapy and started on antimicrobials. He was subsequently admitted to the medical intensive care unit for further management. Overnight, the patient's nitro infusion was weaned off at approximately 0330. Blood pressures have been on the low side. The patient is currently being treated with Levaquin. Past Medical History Past Medical History (Chronic Problems): Chronic Problems (Last Reviewed 10/24/18 @ 14:45 by Christian Shook MD) Acute exacerbation of CHF (congestive heart failure) (Chronic) Acute on chronic diastolic (congestive) heart failure (Chronic) Chronic atrial fibrillation (Chronic) On coumadin, managed by PCP Atherosclerosis of coronary artery bypass graft without angina pectoris (Chronic) Redo CABG x 3 SVG-LAD, SVG OM of Cx, SVG- PDA of RCA and aortic valve replacement with #25 Pietro-Sheppard valve. 02/24/2016 CABG x 4 OAKLEY-D1, SVG-Distal LAD, SVG-Lat CX, SVG-RCA 12/15/98 Non-rheumatic aortic stenosis (Chronic) Hypertension (Chronic) Left bundle branch block (Chronic) Localized edema (Chronic) Venous insufficiency of both lower extremities (Chronic) Hyperlipemia (Chronic) Chronic renal failure, stage 3 (moderate) (Chronic) Morbid obesity with BMI of 45.0-49.9, adult (Chronic) Medical History: Medical History (Last Reviewed 10/24/18 @ 14:45 by Christian Shook MD) Acute on chronic diastolic (congestive) heart failure (Chronic) I50.33 Chronic atrial fibrillation (Chronic) I48.2 On coumadin, managed by PCP Atherosclerosis of coronary artery bypass graft without angina pectoris (Chronic) I25.810 Redo CABG x 3 SVG-LAD, SVG OM of Cx, SVG- PDA of RCA and aortic valve replacement with #25 Pietro-Sheppard valve. 02/24/2016 CABG x 4 OAKLEY-D1, SVG-Distal LAD, SVG-Lat CX, SVG-RCA 12/15/98 Non-rheumatic aortic stenosis (Chronic) I35.0 Hypertension (Chronic) I10 Left bundle branch block (Chronic) I44.7 Localized edema (Chronic) R60.0 Venous insufficiency of both lower extremities (Chronic) I87.2 Hyperlipemia (Chronic) E78.5 Chronic renal failure, stage 3 (moderate) (Chronic) N18.3 Morbid obesity with BMI of 45.0-49.9, adult (Chronic) E66.01, Z68.42 Anemia D64.9 COPD (chronic obstructive pulmonary disease) J44.9 Cholecystitis K81.9 Obstructive sleep apnea G47.33 Ocular migraine G43.109 TIA (transient ischemic attack) G45.9 Type 2 diabetes mellitus without complications E11.9 Allergies Penicillins [PCN] Allergy (Verified 05/04/19 14:00) Swelling Home Medications: Ambulatory Orders Medication Instructions Recorded Aspirin [Adult Low Dose Aspirin EC] 81 mg PO DAILY 07/11/16 Atorvastatin Calcium [Lipitor] 40 mg PO QHS 07/11/16 Multivitamin [Daily Multiple 1 ea PO DAILY 07/11/16 Vitamin] Pantoprazole Sodium [Protonix] 20 mg PO DAILY 07/11/16 Insulin Regular, Human [Novolin R] 25 unit SC BID 07/24/16 Allopurinol [Zyloprim] 150 mg PO DAILYCM #15 tab 08/27/16 Warfarin [Coumadin] 2.5 mg PO DAILY 10/06/16 Cholecalciferol (VIT D3) [Vitamin 1,000 unit PO DAILY 10/26/16 D3] Sertraline HCl [Zoloft] 25 mg PO DAILY 01/10/18 Iron Polysaccharide Complex 150 mg PO QODAY 02/04/18 [Ferrex 150] insulin NPH isophane U-100 human 25 unit SC BID ml 03/08/18 100 unit/mL subcutaneous suspension losartan 25 mg tablet 25 mg PO DAILY 10/24/18 metoprolol tartrate 25 mg tablet 25 mg PO BID #180 tab 10/24/18 Famotidine 20 mg PO DAILY 02/06/19 isosorbide mononitrate ER 30 mg 30 mg PO DAILY #90 tab 05/04/19 tablet,extended release 24 hr furosemide 40 mg tablet 40 mg PO DAILY #90 tab 06/06/19 levETIRAcetam tablet [Keppra 250 mg PO BID 09/08/19 tablet] Surgical History: Surgical History (Last Reviewed 10/24/18 @ 14:45 by Christian Shook MD) H/O aortic valve replacement (Resolved) Z95.2 aortic valve replacement with #25 Pietro-Sheppard valve. 02/24/2016 H/O coronary artery bypass surgery (Resolved) Onset Date: ~02/24/16 Z95.1 Redo CABG x 3 SVG-LAD, SVG OM of Cx, SVG- PDA of RCA and aortic valve replacement with #25 Pietro-Sheppard valve. 02/24/2016 CABG x 4 OAKLEY-D1, SVG-Distal LAD, SVG-Lat CX, SVG-RCA 12/15/98 Hx of cholecystectomy Onset Date: ~01/13/17 Z90.49 Surgical History: cataract, coronary bypass surgery - x 3, - - Aortic valve replacement, bilateral carpal tunnel release, PICC line. Psychiatric History: No pertinent psych hx Lives: Spouse/ Significant Other Smoking Status: Former smoker Alcohol: None Drugs: None - *Family History Maternal Family History: Family History (Last Reviewed 10/24/18 @ 14:45 by Christian Shook MD) Father Myocardial infarction Mother CVA (cerebral vascular accident) Brother CAD (coronary artery disease) Diabetes History Items: Stroke - mother at age 60 from stroke Sibling Family History: Family History (Last Reviewed 10/24/18 @ 14:45 by Christian Shook MD) Father Myocardial infarction Mother CVA (cerebral vascular accident) Brother CAD (coronary artery disease) Diabetes History Items: Seizures - recently diagnosed Review of Systems Constitutional: Reports: Chills, Malaise Eyes: Denies: Blurred vision, Double vision HEENT: Denies: Head Aches, Sinus Congestion, Sinus Drainage Cardiovascular: Denies: Chest Pain, Palpitations Respiratory: Reports: Shortness of Breath Gastrointestinal: Denies: Abdominal Pain, Nausea, Vomiting Genitourinary: Denies: Dysuria Musculoskeletal: Denies: Joint Pain, Joint Tenderness Skin: Denies: Rash, Wounds Neurological: Denies: Numbness, Tingling, Focal weakness Psychiatric: Denies: Anxiety, Depression, Homicidal Ideations, Suicidal Ideations Hematologic/ Lymphatic: Reports: Anemia Patient Problems: Active and Suspected Problems (Last Reviewed 10/24/18 @ 14:45 by Christian Shook MD) Acute respiratory failure with hypoxia (Acute) Right lower lobe pneumonia (Acute) Lymphedema (Acute) Objective: The patient's most recent lab work, culture data and imaging studies have all been personally reviewed. Strep and urine Legionella antigens were both negative. Respiratory viral panel is pending. Blood and sputum cultures are pending. - Physical Exam General: Alert, Oriented x3, Cooperative, No apparent distress HEENT: Atraumatic, PERRLA, Normocephalic Oral: No Gingival or Mucosal Lesions/ Ulcerations Neck: Supple, No Nodes, Trachea Midline Lungs: No rhonchi, No wheeze, No rales, Diminished Cardiovascular: Normal S1, Normal S2, No murmurs, Irregular Rate Abdomen: Bowel Sounds Present, Soft, Non Tender, Obese Extremities: No clubbing, No cyanosis, Edema Skin: - - Lower extremity stasis dermatitis Musculoskeletal: No Tenderness to Palpation of Joints or Extremities Lymphatic: No Cervical, Supraclavicular, or Inguinal Adenopathy Neurological: Cranial nerves II-XII grossly intact, Neuro grossly intact Psych/Mental Status: Normal Affect, Appropriate Vital Signs Temp Pulse Resp BP Pulse Ox 97.0 F L 58 L 20 H 108/56 L 94 09/08/19 04:00 09/08/19 05:00 09/08/19 05:00 09/08/19 05:00 09/08/19 05:00 Oxygen Flow Rate (L/min) 2 Oxygen Delivery Method CPAP Weight: 282 lb 13.649 oz Body Mass Index (BMI) 47.0 Finger Stick Blood Glucose 227 Intake and Output for Last 24 Hours 09/06/19 09/07/19 09/08/19 23:59 23:59 23:59 Intake Total 0.4 / 0.4 197.8 / 197.8 Output Total 1500 / 1500 Balance 0.4 / 0.4 -1302.2 / -1302.2 Microbiology Past 72 Hours 09/08/19 04:15 Legionella Antigen - Final Urine Catheter - [place] 09/08/19 04:15 Streptococcus pneumoniae Antigen (M - Final Urine Catheter - [place] Laboratory Tests Past 24 Hrs 09/07/19 09/07/19 09/07/19 22:50 22:50 22:50 WBC 19.2 H RBC 3.67 L Hgb 11.2 L Hct 35.2 L MCV 95.9 H MCH 30.5 MCHC 31.8 L RDW Std Deviation 48.1 H RDW Coeff of Yeny 13.7 Plt Count 219 MPV 10.6 Immature Gran % (Auto) 0.700 Neut % (Auto) 83.6 H Lymph % (Auto) 9.2 L Faulk % (Auto) 5.4 Eos % (Auto) 0.7 Baso % (Auto) 0.4 Absolute Neuts (auto) 16.0 H Absolute Lymphs (auto) 1.76 Nucleated RBC % 0 PT INR Specimen Type Sample Site pH Bicarbonate Actual POC Total CO2 Base Excess O2 Saturation ABG pCO2 ABG pO2 Pavel Test O2 Delivery Device Liter Flow Blood Gas Notified Whom Blood Gas Notified Time Sodium 139 Potassium 5.3 H Chloride 109 H Carbon Dioxide 22.0 Anion Gap 8 BUN 60 H Creatinine 2.35 H Estim Creat Clear Calc 25.91 Est GFR (MDRD) Af Amer 35 L Est GFR (MDRD) Non-Af 29 L BUN/Creatinine Ratio 25.5 H Glucose 245 H Lactic Acid Calcium 8.7 Magnesium Total Bilirubin 0.80 AST 19 ALT 25 Alkaline Phosphatase 140 H Troponin I 0.016 B-Natriuretic Peptide 705.2 H Total Protein 7.9 Albumin 3.2 Globulin 4.7 H Albumin/Globulin Ratio 0.7 L Triglycerides Cholesterol LDL Cholesterol VLDL Cholesterol HDL Cholesterol TSH Urine Color Urine Clarity Urine pH Ur Specific [place] Urine Protein Urine Glucose (UA) Urine Ketones Urine Occult Blood Urine Nitrite Urine Bilirubin Urine Urobilinogen Ur Leukocyte Esterase Urine RBC Urine WBC Ur Squamous Epith Cells Urine Bacteria Urine Mucus MRSA (PCR) 09/07/19 09/07/19 09/08/19 23:27 23:40 04:15 WBC RBC Hgb Hct MCV MCH MCHC RDW Std Deviation RDW Coeff of Yeny Plt Count MPV Immature Gran % (Auto) Neut % (Auto) Lymph % (Auto) Faulk % (Auto) Eos % (Auto) Baso % (Auto) Absolute Neuts (auto) Absolute Lymphs (auto) Nucleated RBC % PT INR Specimen Type ART Sample Site R Radial pH 7.39 Bicarbonate Actual 19.4 L POC Total CO2 20 Base Excess -5 L O2 Saturation 93 L ABG pCO2 32.0 L ABG pO2 68 L Pavel Test POS O2 Delivery Device Nasal Can Liter Flow 4.0 Blood Gas Notified Whom ED Blood Gas Notified Time 2320 Sodium Potassium Chloride Carbon Dioxide Anion Gap BUN Creatinine Estim Creat Clear Calc Est GFR (MDRD) Af Amer Est GFR (MDRD) Non-Af BUN/Creatinine Ratio Glucose Lactic Acid 1.0 Calcium Magnesium 1.8 Total Bilirubin AST ALT Alkaline Phosphatase Troponin I B-Natriuretic Peptide Total Protein Albumin Globulin Albumin/Globulin Ratio Triglycerides Cholesterol LDL Cholesterol VLDL Cholesterol HDL Cholesterol TSH Urine Color Urine Clarity Urine pH Ur Specific [place] Urine Protein Urine Glucose (UA) Urine Ketones Urine Occult Blood Urine Nitrite Urine Bilirubin Urine Urobilinogen Ur Leukocyte Esterase Urine RBC Urine WBC Ur Squamous Epith Cells Urine Bacteria Urine Mucus MRSA (PCR) 09/08/19 09/08/19 09/08/19 04:15 04:15 04:15 WBC 15.4 H RBC 3.28 L Hgb 10.1 L Hct 31.4 L MCV 95.7 H MCH 30.8 MCHC 32.2 RDW Std Deviation 48.3 H RDW Coeff of Yeny 13.7 Plt Count 191 MPV 10.2 Immature Gran % (Auto) 0.600 Neut % (Auto) 81.6 H Lymph % (Auto) 10.6 L Faulk % (Auto) 6.3 Eos % (Auto) 0.6 Baso % (Auto) 0.3 Absolute Neuts (auto) 12.6 H Absolute Lymphs (auto) 1.64 Nucleated RBC % 0 PT 24.7 H INR 2.2 Specimen Type Sample Site pH Bicarbonate Actual POC Total CO2 Base Excess O2 Saturation ABG pCO2 ABG pO2 Pavel Test O2 Delivery Device Liter Flow Blood Gas Notified Whom Blood Gas Notified Time Sodium 142 Potassium 4.9 Chloride 112 H Carbon Dioxide 23.0 Anion Gap 7 BUN 63 H Creatinine 2.23 H Estim Creat Clear Calc 23.75 Est GFR (MDRD) Af Amer 37 L Est GFR (MDRD) Non-Af 30 L BUN/Creatinine Ratio 28.3 H Glucose 131 H Lactic Acid Calcium 8.5 Magnesium Total Bilirubin AST ALT Alkaline Phosphatase Troponin I B-Natriuretic Peptide Total Protein Albumin Globulin Albumin/Globulin Ratio Triglycerides 83 Cholesterol 97 LDL Cholesterol 47 VLDL Cholesterol 17 HDL Cholesterol 33 L TSH 3.64 Urine Color Urine Clarity Urine pH Ur Specific [place] Urine Protein Urine Glucose (UA) Urine Ketones Urine Occult Blood Urine Nitrite Urine Bilirubin Urine Urobilinogen Ur Leukocyte Esterase Urine RBC Urine WBC Ur Squamous Epith Cells Urine Bacteria Urine Mucus MRSA (PCR) 09/08/19 09/08/19 09/08/19 04:15 04:15 04:15 WBC RBC Hgb Hct MCV MCH MCHC RDW Std Deviation RDW Coeff of Yeny Plt Count MPV Immature Gran % (Auto) Neut % (Auto) Lymph % (Auto) Faulk % (Auto) Eos % (Auto) Baso % (Auto) Absolute Neuts (auto) Absolute Lymphs (auto) Nucleated RBC % PT INR Specimen Type Sample Site pH Bicarbonate Actual POC Total CO2 Base Excess O2 Saturation ABG pCO2 ABG pO2 Pavel Test O2 Delivery Device Liter Flow Blood Gas Notified Whom Blood Gas Notified Time Sodium Potassium Chloride Carbon Dioxide Anion Gap BUN Creatinine Estim Creat Clear Calc Est GFR (MDRD) Af Amer Est GFR (MDRD) Non-Af BUN/Creatinine Ratio Glucose Lactic Acid Calcium Magnesium Total Bilirubin AST ALT Alkaline Phosphatase Troponin I 0.033 B-Natriuretic Peptide Total Protein Albumin Globulin Albumin/Globulin Ratio Triglycerides Cholesterol LDL Cholesterol VLDL Cholesterol HDL Cholesterol TSH Urine Color Straw Urine Clarity Clear Urine pH 6.0 Ur Specific [place] 1.010 Urine Protein 30 H Urine Glucose (UA) Normal Urine Ketones Negative Urine Occult Blood 250 H Urine Nitrite Negative Urine Bilirubin Negative Urine Urobilinogen Normal Ur Leukocyte Esterase 25 H Urine RBC 0-5 SEEN Urine WBC 0-5 SEEN Ur Squamous Epith Cells 0-5 SEEN Urine Bacteria RARE Urine Mucus 0 SEEN MRSA (PCR) Negative POC Glucose 09/08/19 04:03 POC Glucose 135 H Clinical Impression(s) from Imaging Studies Chest X-Ray 09/07/19 22:58 IMPRESSION: Mild cardiomegaly. Status post tenotomy. Ill-defined infiltrate and/or atelectasis of the right lung base, new in the interval. Calcified plaques of the aortic arch. Electronically Signed: Duong Good MD at 23:28 EDT , Service support , Assessment/Plan Active and Suspected Problems (Last Reviewed 10/24/18 @ 14:45 by Christian Shook MD) Acute respiratory failure with hypoxia (Acute) Right lower lobe pneumonia (Acute) Lymphedema (Acute) RECOMMENDATIONS: 1. Discontinue methylprednisone, IV morphine and oxycodone. 2. Recommend discontinuing IV diuretic therapy, given tenuous hemodynamics. 3. Continue antimicrobials, pending infectious work-up. 4. Check respiratory viral panel. 5. Continue nocturnal PAP therapy per home regimen. IMPRESSIONS: 1. Acute hypoxemic respiratory failure Clinical concern for underlying community acquired pneumonia and potential decompensated heart failure with preserved ejection fraction. Unclear where the patient's history of COPD came from, as the patient has never had pulmonary function studies completed, nor does he utilize any inhalers in his home environment. At this time, the patient will be continued on empiric antimicrobials, pending infectious work-up. We will plan to wean his supplemental oxygen to maintain saturations at or above 90%. The patient's diuretics will be placed on hold due to tenuous hemodynamics. IV steroids can be discontinued from my perspective. Encourage incentive spirometer use and mobilize patient as tolerated. 2. History of ischemic cardiomyopathy status post CABG/aortic valve replacement/paroxysmal atrial fibrillation Consultation to cardiology is currently pending. Repeat echocardiogram is currently pending. Diuretics can be restarted once the patient's hemodynamics stabilized. 3. Acute on chronic kidney disease Likely secondary to prerenal etiology in the setting of tenuous hemodynamics. Nephrology consultation is currently pending. As noted above, the patient's Lasix has been placed on hold for now. Continue to monitor urine output. No current indication for renal replacement therapy. 4. History of obstructive sleep apnea Continue nocturnal CPAP therapy per home regimen. 5. Unspecified seizure disorder/obesity/diabetes mellitus/MALENA D/hypertension/hyperlipidemia Complicates care, management, recovery and prognosis. Continue insulin regimen and sliding scale coverage. This note was generated with [employer] dictation software. It may contain incorrect words, spelling, and punctuation that were not noted in checking the note before signing. Code Visit Inpatient E&M: 05926 Init Hosp L3
[2019-09-08 07:11] LABS: Bedside Glucose 122 mg/dL (70-110)
--- NOTE | 2019-09-08 07:18 | PCM.PN.BLA ---
Progress Note Patient is a 79-year-old gentleman admitted with progressive shortness of breath. On assessment of acute hypoxic respiratory failure was made admitted to the intensive care unit patient started on noninvasive ventilation subsequently. GENERAL: cooperative HEENT: Atraumatic; EYES; Anicteric, Normal Conjunctiva NECK; supple, normal thyroid, RESPIRATORY: Diminished to auscultation CARDIOVASCULAR: Regular S1 S2, GI: soft, normoactive bowel sounds, : No Renal angle tenderness; EXTREMITIES: Bilateral stasis dermatitis with trace edema MUSCULOSKELETAL: No Joint Tenderness; NEURO: Awake; no lateralizing signs. SKIN: As described above PSYCH; Normal affect 1. Acute hypoxic respiratory failure ~Multifactorial including CHF with acute exacerbation, COPD with acute exacerbation and suspected pneumonia patient was started on noninvasive ventilation admitted to the intensive care unit 2. Acute on chronic CHF with preserved ejection fraction ~Admitted to the intensive care unit started on noninvasive ventilation in addition to fluid restriction, daily input and output Daily weight and IV Lasix. Consult was placed to cardiology 3. COPD exacerbation ~Patient on bronchodilator treatment in addition to antibiotics and supplemental oxygen via noninvasive ventilation; it was placed pulmonary medicine 4. Suspected pneumonia ~started on Levaquin in addition to above treatment described above 5. Chronic kidney disease stage IV ~Consult placed to nephrology 6. Obstructive sleep apnea ?Patient is on CPAP at night continued 7. Diabetes mellitus type II ~Controlled Placed on long acting insulin, Accu-Cheks a.c. and at bedtime and covered with sliding scale insulin 8. History of aortic valve replacement ~ with bioprosthetic material 9. Paroxysmal atrial fibrillation ~Controlled on systemic anticoagulation with Coumadin, continued with daily monitoring of INR 10. Seizure disorder ~Controlled on Keppra did continue 11. Morbid obesity with BMI 47 ?Weight loss advised 12. Coronary artery disease ~with previous CABG 11. DVT prophylaxis on Coumadin Active Medications Acetaminophen (Tylenol) 650 mg PO Q6H PRN PRN PRN Reason: Pain Score 1-3/Temp > 100.7 F Albuterol Sulfate (Ventolin Aerosols) 2.5 mg INHALATION Q2H PRN PRN PRN Reason: SOB/Wheezing Albuterol/Ipratropium (Duoneb) 3 ml INHALATION Q4H.RT AYLIN Last Admin: 09/08/19 07:25 Dose: 3 ml Documented by: Allopurinol (Zyloprim) 150 mg PO DAILYCM [facility] Last Admin: 09/08/19 08:37 Dose: 150 mg Documented by: Aspirin (Ecotrin) 81 mg PO DAILY [facility] Atorvastatin Calcium (Lipitor) 40 mg PO QHS [facility] Bisacodyl (Dulcolax) 10 mg RECTAL DAILY PRN PRN PRN Reason: Constipation Cholecalciferol (Vitamin D) 1,000 unit PO DAILY [facility] Dextrose (D50w Syringe) 0 gm IV X1 PRN; Protocol PRN Reason: Hypoglycemia Famotidine (Pepcid) 20 mg PO DAILY [facility] Glucagon () 1 mg IM .X1 PRN PRN Reason: Hypoglycemia Guaifenesin (Mucinex) 1,200 mg PO BID [facility] Sodium Chloride () 250 mls @ 15 mls/hr IV .[id number] PRN PRN Reason: SALINE FLUSH Last Admin: 09/08/19 05:23 Dose: 15 mls/hr Documented by: Levofloxacin (Levaquin Iv) 500 mg in 100 mls @ 100 mls/hr IV Q48 [facility] Stop: 09/16/19 10:59 Last Infusion: 09/08/19 06:22 Dose: Infused Documented by: Insulin Human Lispro (Humalog Kwikpen (Bkc)) [facility] Last Admin: 09/08/19 08:44 Dose: 25 u Documented by: Insulin Human Lispro (Humalog Kwikpen (Bkc)) 0 unit SC [facility]; Protocol Last Admin: 09/08/19 07:15 Dose: Not Given Documented by: Insulin Human NPH (Humulin N (Bkc)) [facility] Last Admin: 09/08/19 08:36 Dose: 25 u Documented by: Levetiracetam (Keppra Tablet) 250 mg PO BID [facility] Metoprolol Tartrate (Lopressor (Beta Karyn)) 25 mg PO BID [facility] Pantoprazole Sodium (Protonix) 20 mg PO DAILY [facility] Polyethylene Glycol (Miralax) 17 gm PO DAILY [facility] Polysaccharide Iron Complex (Ferrex 150) 150 mg PO QODAY [facility] Prochlorperazine Edisylate (Compazine Iv) 5 mg IV Q4H PRN PRN PRN Reason: Breakthrough Nausea/Vomiting Senna/Docusate Sodium (Senokot-S, Makayla-Colace) 2 tablet PO BID PRN PRN Reason: Constipation Sertraline HCl (Zoloft) 25 mg PO DAILY [facility] Sodium Chloride () 5 - 15 ml IV UD PRN PRN Reason: SALINE FLUSH Last Admin: 09/08/19 05:23 Dose: 15 ml Documented by: Warfarin Sodium (Coumadin (Pbkc)) 2.5 mg PO DAILY@1700 AYLIN Clinical Impression(s) from Imaging Studies Chest X-Ray 09/07/19 22:58 IMPRESSION: Mild cardiomegaly. Status post tenotomy. Ill-defined infiltrate and/or atelectasis of the right lung base, new in the interval. Calcified plaques of the aortic arch. Electronically Signed: Duong Good MD at 23:28 EDT , Service support ,
[2019-09-08] MEDS: Ipratropium/Albuterol Sulfate 3 ML AMPUL.NEB INHALATION ×5 (07:25→22:50)
[2019-09-08] MEDS: Insulin NPH Human 100 UNITS/ML PEN 25 UNITS SC ×2 (08:36→16:42)
[2019-09-08] MEDS: Allopurinol 300 MG Tablet 150 MG PO (08:37)
[2019-09-08] MEDS: Insulin Lispro 100 UNIT/ML INSULN.PEN 25 UNIT SC ×2 (08:44→16:42)
[2019-09-08] MEDS: Aspirin E.C. 81 MG Tablet PO (09:37)
[2019-09-08] MEDS: levETIRAcetam 500 MG Tablet 250 MG PO ×2 (09:38→21:03)
[2019-09-08] MEDS: Iron Polysaccharide Complex 150 MG CAPSULE PO (09:38)
[2019-09-08] MEDS: Metoprolol Tartrate 25 MG Tablet PO ×2 (09:39→21:04)
[2019-09-08] MEDS: guaiFENesin 1,200 MG Tablet 1200 MG PO ×2 (09:40→21:03)
[2019-09-08] MEDS: Famotidine 20 MG Tablet PO (09:40)
[2019-09-08] MEDS: Pantoprazole Sodium 20 MG Tablet PO (09:40)
[2019-09-08] MEDS: Sertraline 50 MG Tablet 25 MG PO (09:41)
--- NOTE | 2019-09-08 11:07 | CM.UR ---
RN CM Assessment Introduced role of RN CM to patient. Patient is alert and able to participate in RN CM Assessment. Care providers, pharmacy, and demographics verified. No family at bedside. Presentation: Increased sob and orthopnea. Admit Dx: resp failure; COPD Re-Admit: no Barriers/Issues: none PCP: [facility] Specialists: renal physician from [place] but he can't remember his name; Dr. fox (pulm); Dr. Shook and Dr. Espino (endo) Preferred Pharmacy: [facility] Insurance: [employer]. Rx Benefit: yes LNOK: Gabrielle, LW/HPOA: None on file, declined information Living Arrangements: lives in ranch home, no steps to get in. Lives with and granddaughter. ADL?s: Needs help with socks, yard, finances, medications. Granddaughter helps both him and his . Transportation: granddaughter DME: cpap, cane, shower chair, handheld shower, walker, glucometer, rollator. NO o2 at home for him. DME co: [facility] HHC: None that he can recall. SNF: [facility] Goal: to return home independently. DC PLAN: Home. Questionable need for home o2 for him. already on home o2. CM will continue to follow for needs. Sunita Burns RN, CCM.
[2019-09-08] MEDS: Insulin Lispro 100 UNIT/ML INSULN.PEN SC ×3 (11:45→21:04)
[2019-09-08 11:55] LABS: Bedside Glucose 283 mg/dL (70-110)
[2019-09-08] MEDS: Furosemide 40 MG/4 ML Vial IV (13:44)
--- NOTE | 2019-09-08 13:53 | CON.PCM_ITS ---
Problem List (1) Acute respiratory failure with hypoxia Status: Acute Reason for Consult Date of Consultation: 09/08/19 History of Present Illness: The patient is a 79-year-old male, with a history as outlined below, who presented to the emergency department on September 07 with complaints of shortness of breath. The patient has a known history of ischemic cardiomyopathy status post CABG, along with aortic valve replacement and paroxysmal atrial fibrillation. He is currently followed by Dr. Shook in the cardiology clinic, having last been seen in the office in April 2019. Surface echocardiogram from January 2018 revealed moderate concentric LVH with an ejection fraction of 60%. Pulmonary artery systolic pressure was estimated to be 34 mmHg. Echocardiogram done today reveals an EF of around 45 to 50% with anteroseptal hypokinesis. On presentation to the emergency department, the patient was noted to be febrile with a temperature of 99.5 ?F. The patient was initially tachycardic, but was hemodynamically stable. The patient was tachypneic and hypoxemic on room air. Initial laboratory evaluation revealed an elevated white blood cell count to 19,000. Arterial blood gas obtained on 4 L/min revealed a pH of 7.39 with a corresponding PCO2 of 32 and PO2 of 68. Chemistry profile was notable for a potassium of 5.3, chloride of 109 and creatinine of 2.35. AST and ALT were within normal limits. Alkaline phosphatase was increased to 140. BNP was increased to 705. Troponin was negative. UA was largely unrevealing. MRSA screen was negative. Plain film chest x-ray revealed cardiomegaly and what appears to be a possible right lower lobe infiltrate. Given that the patient's blood pressures were elevated in the emergency department with systolics in the 170s, the patient appears to have been started on a continuous nitro infusion. The patient was also treated with IV diuretic therapy and started on antimicrobials. He was subsequently admitted to the medical intensive care unit for further management. Overnight, the patient's nitro infusion was weaned off at approximately 0330. Blood pressures have been on the low side. The patient is currently being treated with Levaquin. Review of systems: All systems reviewed. All else is negative except that in the HPI. Past Medical History Allergies/Adverse Reactions: Allergies Penicillins [PCN] Allergy (Verified 05/04/19 14:00) Swelling Home Medications: Ambulatory Orders Medication Instructions Recorded Aspirin [Adult Low Dose Aspirin EC] 81 mg PO DAILY 07/11/16 Atorvastatin Calcium [Lipitor] 40 mg PO QHS 07/11/16 Multivitamin [Daily Multiple 1 ea PO DAILY 07/11/16 Vitamin] Pantoprazole Sodium [Protonix] 20 mg PO DAILY 07/11/16 Insulin Regular, Human [Novolin R] 25 unit SC BID 07/24/16 Allopurinol [Zyloprim] 150 mg PO DAILYCM #15 tab 08/27/16 Warfarin [Coumadin] 2.5 mg PO DAILY 10/06/16 Cholecalciferol (VIT D3) [Vitamin 1,000 unit PO DAILY 10/26/16 D3] Sertraline HCl [Zoloft] 25 mg PO DAILY 01/10/18 Iron Polysaccharide Complex 150 mg PO QODAY 02/04/18 [Ferrex 150] insulin NPH isophane U-100 human 25 unit SC BID ml 03/08/18 100 unit/mL subcutaneous suspension losartan 25 mg tablet 25 mg PO DAILY 10/24/18 metoprolol tartrate 25 mg tablet 25 mg PO BID #180 tab 10/24/18 Famotidine 20 mg PO DAILY 02/06/19 isosorbide mononitrate ER 30 mg 30 mg PO DAILY #90 tab 05/04/19 tablet,extended release 24 hr furosemide 40 mg tablet 40 mg PO DAILY #90 tab 06/06/19 levETIRAcetam tablet [Keppra 250 mg PO BID 09/08/19 tablet] Past Medical History (Chronic Problems): Chronic Problems (Last Reviewed 10/24/18 @ 14:45 by Christian Shook MD) Acute exacerbation of CHF (congestive heart failure) (Chronic) Acute on chronic diastolic (congestive) heart failure (Chronic) Chronic atrial fibrillation (Chronic) On coumadin, managed by PCP Atherosclerosis of coronary artery bypass graft without angina pectoris (Chronic) Redo CABG x 3 SVG-LAD, SVG OM of Cx, SVG- PDA of RCA and aortic valve replacement with #25 Pietro-Sheppard valve. 02/24/2016 CABG x 4 OAKLEY-D1, SVG-Distal LAD, SVG-Lat CX, SVG-RCA 12/15/98 Non-rheumatic aortic stenosis (Chronic) Hypertension (Chronic) Left bundle branch block (Chronic) Localized edema (Chronic) Venous insufficiency of both lower extremities (Chronic) Hyperlipemia (Chronic) Chronic renal failure, stage 3 (moderate) (Chronic) Morbid obesity with BMI of 45.0-49.9, adult (Chronic) Surgical History: cataract, coronary bypass surgery - x 3, - - Aortic valve replacement, bilateral carpal tunnel release, PICC line. Psychiatric History: No pertinent psych hx - *Family History Maternal Family History: Family History (Last Reviewed 10/24/18 @ 14:45 by Christian Shook MD) Father Myocardial infarction Mother CVA (cerebral vascular accident) Brother CAD (coronary artery disease) Diabetes History Items: Stroke - mother at age 60 from stroke Sibling Family History: Family History (Last Reviewed 10/24/18 @ 14:45 by Christian Shook MD) Father Myocardial infarction Mother CVA (cerebral vascular accident) Brother CAD (coronary artery disease) Diabetes History Items: Seizures - recently diagnosed Lives: Spouse/ Significant Other Smoking Status: Former smoker Alcohol: None Drugs: None Objective: Vital Signs Temp Pulse Resp BP Pulse Ox 97.1 F L 82 29 H 116/74 94 09/08/19 12:00 09/08/19 13:00 09/08/19 13:00 09/08/19 13:00 09/08/19 13:00 Oxygen Flow Rate (L/min) 2 Oxygen Delivery Method Nasal Cannula Weight: 282 lb 13.649 oz Body Mass Index (BMI) 47.0 Finger Stick Blood Glucose 227 Intake and Output for Last 24 Hours 09/06/19 09/07/19 09/08/19 23:59 23:59 23:59 Intake Total 0.4 / 0.4 1529.55 / 1529.55 Output Total 2200 / 2200 Balance 0.4 / 0.4 -670.45 / -670.45 General: Awake, Alert, Oriented x 3 HEENT: Atraumatic Oral: Moist Mucosa Neck: Supple Lungs: Rales - [place] Bases Cardiovascular: Normal S1, Normal S2 Abdomen: Soft Extremities: No edema Psych/Mental Status: Appropriate 09/07/19 22:50: WBC 19.2 H, RBC 3.67 L, Hgb 11.2 L, Hct 35.2 L, MCV 95.9 H, MCH 30.5, MCHC 31.8 L, Plt Count 219, MPV 10.6, Immature Gran % (Auto) 0.700, Neut % (Auto) 83.6 H, Lymph % (Auto) 9.2 L, [place] % (Auto) 5.4, Eos % (Auto) 0.7, Baso % (Auto) 0.4, Absolute Neuts (auto) 16.0 H, Nucleated RBC % 0 09/07/19 22:50: Sodium 139, Potassium 5.3 H, Chloride 109 H, Carbon Dioxide 22.0, Anion Gap 8, BUN 60 H, Creatinine 2.35 H, Est GFR (MDRD) Af Amer 35 L, Est GFR (MDRD) Non-Af 29 L, BUN/Creatinine Ratio 25.5 H, Glucose 245 H, Calcium 8.7, Total Bilirubin 0.80, Troponin I 0.016 09/07/19 22:50: B-Natriuretic Peptide 705.2 H 09/07/19 23:27: pH 7.39, Bicarbonate Actual 19.4 L, POC Total CO2 20, Base Excess -5 L, O2 Saturation 93 L, ABG pCO2 32.0 L, ABG pO2 68 L, Pavel Test POS 09/07/19 23:40: Lactic Acid 1.0 09/08/19 04:15: Magnesium 1.8 09/08/19 04:15: PT 24.7 H, INR 2.2 09/08/19 04:15: WBC 15.4 H, RBC 3.28 L, Hgb 10.1 L, Hct 31.4 L, MCV 95.7 H, MCH 30.8, MCHC 32.2, Plt Count 191, MPV 10.2, Immature Gran % (Auto) 0.600, Neut % (Auto) 81.6 H, Lymph % (Auto) 10.6 L, [place] % (Auto) 6.3, Eos % (Auto) 0.6, Baso % (Auto) 0.3, Absolute Neuts (auto) 12.6 H, Nucleated RBC % 0 09/08/19 04:15: Sodium 142, Potassium 4.9, Chloride 112 H, Carbon Dioxide 23.0, Anion Gap 7, BUN 63 H, Creatinine 2.23 H, Est GFR (MDRD) Af Amer 37 L, Est GFR (MDRD) Non-Af 30 L, BUN/Creatinine Ratio 28.3 H, Glucose 131 H, Calcium 8.5, Triglycerides 83, Cholesterol 97, LDL Cholesterol 47, VLDL Cholesterol 17, HDL Cholesterol 33 L 10/12/19 04:15: Urine Color Straw, Urine Clarity Clear, Urine pH 6.0, Ur Specific [place] 1.010, Urine Protein 30 H, Urine Glucose (UA) Normal, Urine Ketones Negative, Urine Occult Blood 250 H, Urine Nitrite Negative, Urine Bilirubin Negative, Urine Urobilinogen Normal, Ur Leukocyte Esterase 25 H, Urine RBC 0-5 SEEN, Urine WBC 0-5 SEEN 09/08/19 04:15: Troponin I 0.033 09/08/19 07:05: Troponin I 0.033 09/08/19 10:20: Troponin I 0.019 Rhythm: EKG: ECHO: Stress Test: Cardiac Cath: PCI: CT Surgery: Holter monitor: EPS: PPM: CXR: Chest CT Scan: Assessment/Plan 1. Acute respiratory failure: Appears to be secondary to pneumonia. Patient does not have clear evidence of significant volume overload. He does have bib asilar crackles which could be just from his pneumonia. He is on Lasix 40 mill grams p.o. daily at home. We will give him 1 dose of Lasix IV today to see if there is a component of CHF in addition. His BNP is elevated. 2. Coronary artery disease: Stable. Continue current medications.
[2019-09-08 16:50] LABS: Bedside Glucose 349 mg/dL (70-110)
--- NOTE | 2019-09-08 19:57 | PCM.CONS.R ---
Problem List (1) Chronic renal failure, stage 3 (moderate) Status: Chronic Consultation - Renal 09/08/19 PCP/ Referring MD: Requesting physician: Dr. Camarillo Primary care physician: Romaine Velazquez MD Reason for Consultation:: DARRYL/CKD - History of Present Illness History of Present Illness: The patient is a 79 year old M past history significant for type 2 diabetes mellitus, hypertension, coronary artery disease post CABG x 2 (most recently in 2016), hyperlipidemia, sleep apnea, gout, and aortic valve disease status post aortic valve replacement in 2016. 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 He is followed as an outpatient by Dr. Haroon Han, at their [place] office. The patient presented with progressive increase in dyspnea. He denies current CP, nausea, or increasing edema. The patient was diagnosed with acute hypoxic respiratory failure thought to be due to pneumonia. Nephrology is asked to see the patient because elevated SCr at 2.35 mg/dL on presentation. SCr has been around 2.2 mg/dL at baseline. Renal function has been stable since last admit (January 2018). Patient had not been on NSAIDs at home. Denies recent exposure to IV contrast. He denies LUTS. - Allergies Allergies: Allergies Penicillins [PCN] Allergy (Verified 05/04/19 14:00) Swelling - Current Medications Current Medications: Current Medications Acetaminophen (Tylenol) 650 mg PO Q6H PRN PRN PRN Reason: Pain Score 1-3/Temp > 100.7 F Albuterol Sulfate (Ventolin Aerosols) 2.5 mg INHALATION Q2H PRN PRN PRN Reason: SOB/Wheezing Albuterol/Ipratropium (Duoneb) 3 ml INHALATION Q4H.RT [facility] Last Admin: 09/08/19 19:13 Dose: 3 ml Documented by: Allopurinol (Zyloprim) 150 mg PO DAILYCM [facility] Last Admin: 09/08/19 08:37 Dose: 150 mg Documented by: Aspirin (Ecotrin) 81 mg PO DAILY [facility] Last Admin: 09/08/19 09:37 Dose: 81 mg Documented by: Atorvastatin Calcium (Lipitor) 40 mg PO QHS [facility] Bisacodyl (Dulcolax) 10 mg RECTAL DAILY PRN PRN PRN Reason: Constipation Cholecalciferol (Vitamin D) 1,000 unit PO DAILY [facility] Last Admin: 09/08/19 09:41 Dose: 1,000 unit Documented by: Dextrose (D50w Syringe) 0 gm IV X1 PRN; Protocol PRN Reason: Hypoglycemia Famotidine (Pepcid) 20 mg PO DAILY [facility] Last Admin: 09/08/19 09:40 Dose: 20 mg Documented by: Glucagon () 1 mg IM .X1 PRN PRN Reason: Hypoglycemia Guaifenesin (Mucinex) 1,200 mg PO BID [facility] Last Admin: 09/08/19 09:40 Dose: 1,200 mg Documented by: Sodium Chloride () 250 mls @ 15 mls/hr IV .[id number] PRN PRN Reason: SALINE FLUSH Last Infusion: 09/08/19 12:10 Dose: 0 mls/hr Documented by: Levofloxacin (Levaquin Iv) 500 mg in 100 mls @ 100 mls/hr IV Q48 [facility] Stop: 09/16/19 10:59 Last Infusion: 09/08/19 06:22 Dose: Infused Documented by: Insulin Human Lispro (Humalog Kwikpen (Bkc)) [facility] Last Admin: 09/08/19 16:42 Dose: 25 u Documented by: Insulin Human Lispro (Humalog Kwikpen (Bkc)) 0 unit SC [facility]; Protocol Last Admin: 09/08/19 16:41 Dose: 8 u Documented by: Insulin Human NPH (Humulin N (Bkc)) 25 units SC BIDCM [facility] Last Admin: 09/08/19 16:42 Dose: 25 u Documented by: Levetiracetam (Keppra Tablet) 250 mg PO BID [facility] Last Admin: 09/08/19 09:38 Dose: 250 mg Documented by: Metoprolol Tartrate (Lopressor (Beta Karyn)) 25 mg PO BID [facility] Last Admin: 09/08/19 09:39 Dose: 25 mg Documented by: Pantoprazole Sodium (Protonix) 20 mg PO DAILY [facility] Last Admin: 09/08/19 09:40 Dose: 20 mg Documented by: Polyethylene Glycol (Miralax) 17 gm PO DAILY [facility] Last Admin: 09/08/19 09:39 Dose: Not Given Documented by: Polysaccharide Iron Complex (Ferrex 150) 150 mg PO QODAY [facility] Last Admin: 09/08/19 09:38 Dose: 150 mg Documented by: Prochlorperazine Edisylate (Compazine Iv) 5 mg IV Q4H PRN PRN PRN Reason: Breakthrough Nausea/Vomiting Senna/Docusate Sodium (Senokot-S, Maakyla-Colace) 2 tablet PO BID PRN PRN Reason: Constipation Sertraline HCl (Zoloft) 25 mg PO DAILY [facility] Last Admin: 09/08/19 09:41 Dose: 25 mg Documented by: Sodium Chloride () 5 - 15 ml IV UD PRN PRN Reason: SALINE FLUSH Last Admin: 09/08/19 13:44 Dose: 10 ml Documented by: Warfarin Sodium (Coumadin (Pbkc)) 2.5 mg PO DAILY@1700 [facility] Last Admin: 09/08/19 17:04 Dose: 2.5 mg Documented by: - Past Medical History Past Medical History (Chronic Problems): Chronic Problems (Last Reviewed 10/24/18 @ 14:45 by Christian Shook MD) Acute exacerbation of CHF (congestive heart failure) (Chronic) Acute on chronic diastolic (congestive) heart failure (Chronic) Chronic atrial fibrillation (Chronic) On coumadin, managed by PCP Atherosclerosis of coronary artery bypass graft without angina pectoris (Chronic) Redo CABG x 3 SVG-LAD, SVG OM of Cx, SVG- PDA of RCA and aortic valve replacement with #25 Pietro-Sheppard valve. 02/24/2016 CABG x 4 [place]-D1, SVG-Distal LAD, SVG-Lat CX, SVG-RCA 12/15/98 Non-rheumatic aortic stenosis (Chronic) Hypertension (Chronic) Left bundle branch block (Chronic) Localized edema (Chronic) Venous insufficiency of both lower extremities (Chronic) Hyperlipemia (Chronic) Chronic renal failure, stage 3 (moderate) (Chronic) Morbid obesity with BMI of 45.0-49.9, adult (Chronic) - Past Surgical History Surgical History: cataract, coronary bypass surgery - x 3, - - Aortic valve replacement, bilateral carpal tunnel release, PICC line. - Social History Smoking Status: Former smoker Alcohol: None Drugs: None - Family History Maternal Family History: Family History (Last Reviewed 10/24/18 @ 14:45 by Christian Shook MD) Father Myocardial infarction Mother CVA (cerebral vascular accident) Brother CAD (coronary artery disease) Diabetes History Items: Stroke - mother at age 60 from stroke Sibling Family History: Family History (Last Reviewed 10/24/18 @ 14:45 by Christian Shook MD) Father Myocardial infarction Mother CVA (cerebral vascular accident) Brother CAD (coronary artery disease) Diabetes History Items: Seizures - recently diagnosed Review of Systems Constitutional: Reports: Chills, Malaise. Denies: Anorexia, Fever, Night Sweats Eyes: Denies: Blurred vision, Pain, Redness HEENT: Denies: Difficulty Hearing, Head Aches, Hearing Changes Cardiovascular: Reports: Edema. Denies: Chest Pain, Claudication, Orthopnea Respiratory: Reports: Cough, Shortness of Breath, Shortness of breath upon exertion Gastrointestinal: Denies: Constipation, Diarrhea, Vomiting Genitourinary: Denies: Dysuria, Frequency Musculoskeletal: Denies: Joint Pain, Joint Tenderness Skin: Denies: Jaundice, Rash Neurological: Denies: Numbness, Tingling, Focal weakness Psychiatric: Denies: Anxiety, Depression, Homicidal Ideations, Suicidal Ideations Hematologic/ Lymphatic: Denies: Easy Bruising, Easy Bleeding Patient Problems: Active and Suspected Problems (Last Reviewed 10/24/18 @ 14:45 by Christian Shook MD) Acute respiratory failure with hypoxia (Acute) Right lower lobe pneumonia (Acute) Lymphedema (Acute) - Physical Exam General: Alert, Oriented x3 HEENT: Atraumatic, PERRLA, EOMI Oral: Moist Mucosa Neck: Supple Lungs: Diminished Cardiovascular: Normal S1, Normal S2, No murmurs Abdomen: Bowel Sounds Present, Soft, Non Tender, Obese Extremities: No clubbing, No cyanosis, Edema - trace in LE Skin: No breakdown Musculoskeletal: No Tenderness to Palpation of Joints or Extremities Lymphatic: No Cervical, Supraclavicular, or Inguinal Adenopathy Neurological: Cranial nerves II-XII grossly intact Psych/Mental Status: Normal Affect, Appropriate Vital Signs Temp Pulse Resp BP Pulse Ox 97 F L 89 29 H 121/58 H 97 09/08/19 18:00 09/08/19 19:50 09/08/19 19:00 09/08/19 19:00 09/08/19 19:00 Oxygen Flow Rate (L/min) 2 Oxygen Delivery Method Nasal Cannula Weight: 128.3 kg Body Mass Index (BMI) 47.0 Finger Stick Blood Glucose 227 Intake and Output for Last 24 Hours 09/06/19 09/07/19 09/08/19 23:59 23:59 23:59 Intake Total 0.4 / 0.4 2129.55 / 2129.55 Output Total 3050 / 3050 Balance 0.4 / 0.4 -920.45 / -920.45 Microbiology Past 72 Hours 09/08/19 08:49 Respiratory Panel (PCR) - Final Mucosa - Nasopharyngeal 09/08/19 04:15 Legionella Antigen - Final Urine Catheter - [place] 09/08/19 04:15 Streptococcus pneumoniae Antigen (M - Final Urine Catheter - [place] Laboratory Tests Past 24 Hrs 09/07/19 09/07/19 09/07/19 22:50 22:50 22:50 WBC 19.2 H RBC 3.67 L Hgb 11.2 L Hct 35.2 L MCV 95.9 H MCH 30.5 MCHC 31.8 L RDW Std Deviation 48.1 H RDW Coeff of Yeny 13.7 Plt Count 219 MPV 10.6 Immature Gran % (Auto) 0.700 Neut % (Auto) 83.6 H Lymph % (Auto) 9.2 L [place] % (Auto) 5.4 Eos % (Auto) 0.7 Baso % (Auto) 0.4 Absolute Neuts (auto) 16.0 H Absolute Lymphs (auto) 1.76 Nucleated RBC % 0 PT INR Specimen Type Sample Site pH Bicarbonate Actual POC Total CO2 Base Excess O2 Saturation ABG pCO2 ABG pO2 Pavel Test O2 Delivery Device Liter Flow Blood Gas Notified Whom Blood Gas Notified Time Sodium 139 Potassium 5.3 H Chloride 109 H Carbon Dioxide 22.0 Anion Gap 8 BUN 60 H Creatinine 2.35 H Estim Creat Clear Calc 25.91 Est GFR (MDRD) Af Amer 35 L Est GFR (MDRD) Non-Af 29 L BUN/Creatinine Ratio 25.5 H Glucose 245 H Lactic Acid Calcium 8.7 Magnesium Total Bilirubin 0.80 AST 19 ALT 25 Alkaline Phosphatase 140 H Troponin I 0.016 B-Natriuretic Peptide 705.2 H Total Protein 7.9 Albumin 3.2 Globulin 4.7 H Albumin/Globulin Ratio 0.7 L Triglycerides Cholesterol LDL Cholesterol VLDL Cholesterol HDL Cholesterol TSH Urine Color Urine Clarity Urine pH Ur Specific [place] Urine Protein Urine Glucose (UA) Urine Ketones Urine Occult Blood Urine Nitrite Urine Bilirubin Urine Urobilinogen Ur Leukocyte Esterase Urine RBC Urine WBC Ur Squamous Epith Cells Urine Bacteria Urine Mucus MRSA (PCR) 09/07/19 09/07/19 09/08/19 23:27 23:40 04:15 WBC RBC Hgb Hct MCV MCH MCHC RDW Std Deviation RDW Coeff of Yeny Plt Count MPV Immature Gran % (Auto) Neut % (Auto) Lymph % (Auto) [place] % (Auto) Eos % (Auto) Baso % (Auto) Absolute Neuts (auto) Absolute Lymphs (auto) Nucleated RBC % PT INR Specimen Type ART Sample Site R Radial pH 7.39 Bicarbonate Actual 19.4 L POC Total CO2 20 Base Excess -5 L O2 Saturation 93 L ABG pCO2 32.0 L ABG pO2 68 L Pavel Test POS O2 Delivery Device Nasal Can Liter Flow 4.0 Blood Gas Notified Whom ED Blood Gas Notified Time 2320 Sodium Potassium Chloride Carbon Dioxide Anion Gap BUN Creatinine Estim Creat Clear Calc Est GFR (MDRD) Af Amer Est GFR (MDRD) Non-Af BUN/Creatinine Ratio Glucose Lactic Acid 1.0 Calcium Magnesium 1.8 Total Bilirubin AST ALT Alkaline Phosphatase Troponin I B-Natriuretic Peptide Total Protein Albumin Globulin Albumin/Globulin Ratio Triglycerides Cholesterol LDL Cholesterol VLDL Cholesterol HDL Cholesterol TSH Urine Color Urine Clarity Urine pH Ur Specific [place] Urine Protein Urine Glucose (UA) Urine Ketones Urine Occult Blood Urine Nitrite Urine Bilirubin Urine Urobilinogen Ur Leukocyte Esterase Urine RBC Urine WBC Ur Squamous Epith Cells Urine Bacteria Urine Mucus MRSA (PCR) 09/08/19 09/08/19 09/08/19 04:15 04:15 04:15 WBC 15.4 H RBC 3.28 L Hgb 10.1 L Hct 31.4 L MCV 95.7 H MCH 30.8 MCHC 32.2 RDW Std Deviation 48.3 H RDW Coeff of Yeny 13.7 Plt Count 191 MPV 10.2 Immature Gran % (Auto) 0.600 Neut % (Auto) 81.6 H Lymph % (Auto) 10.6 L [place] % (Auto) 6.3 Eos % (Auto) 0.6 Baso % (Auto) 0.3 Absolute Neuts (auto) 12.6 H Absolute Lymphs (auto) 1.64 Nucleated RBC % 0 PT 24.7 H INR 2.2 Specimen Type Sample Site pH Bicarbonate Actual POC Total CO2 Base Excess O2 Saturation ABG pCO2 ABG pO2 Pavel Test O2 Delivery Device Liter Flow Blood Gas Notified Whom Blood Gas Notified Time Sodium 142 Potassium 4.9 Chloride 112 H Carbon Dioxide 23.0 Anion Gap 7 BUN 63 H Creatinine 2.23 H Estim Creat Clear Calc 23.75 Est GFR (MDRD) Af Amer 37 L Est GFR (MDRD) Non-Af 30 L BUN/Creatinine Ratio 28.3 H Glucose 131 H Lactic Acid Calcium 8.5 Magnesium Total Bilirubin AST ALT Alkaline Phosphatase Troponin I B-Natriuretic Peptide Total Protein Albumin Globulin Albumin/Globulin Ratio Triglycerides 83 Cholesterol 97 LDL Cholesterol 47 VLDL Cholesterol 17 HDL Cholesterol 33 L TSH 3.64 Urine Color Urine Clarity Urine pH Ur Specific [place] Urine Protein Urine Glucose (UA) Urine Ketones Urine Occult Blood Urine Nitrite Urine Bilirubin Urine Urobilinogen Ur Leukocyte Esterase Urine RBC Urine WBC Ur Squamous Epith Cells Urine Bacteria Urine Mucus MRSA (PCR) 09/08/19 09/08/19 09/08/19 04:15 04:15 04:15 WBC RBC Hgb Hct MCV MCH MCHC RDW Std Deviation RDW Coeff of Yeny Plt Count MPV Immature Gran % (Auto) Neut % (Auto) Lymph % (Auto) [place] % (Auto) Eos % (Auto) Baso % (Auto) Absolute Neuts (auto) Absolute Lymphs (auto) Nucleated RBC % PT INR Specimen Type Sample Site pH Bicarbonate Actual POC Total CO2 Base Excess O2 Saturation ABG pCO2 ABG pO2 Pavel Test O2 Delivery Device Liter Flow Blood Gas Notified Whom Blood Gas Notified Time Sodium Potassium Chloride Carbon Dioxide Anion Gap BUN Creatinine Estim Creat Clear Calc Est GFR (MDRD) Af Amer Est GFR (MDRD) Non-Af BUN/Creatinine Ratio Glucose Lactic Acid Calcium Magnesium Total Bilirubin AST ALT Alkaline Phosphatase Troponin I 0.033 B-Natriuretic Peptide Total Protein Albumin Globulin Albumin/Globulin Ratio Triglycerides Cholesterol LDL Cholesterol VLDL Cholesterol HDL Cholesterol TSH Urine Color Straw Urine Clarity Clear Urine pH 6.0 Ur Specific [place] 1.010 Urine Protein 30 H Urine Glucose (UA) Normal Urine Ketones Negative Urine Occult Blood 250 H Urine Nitrite Negative Urine Bilirubin Negative Urine Urobilinogen Normal Ur Leukocyte Esterase 25 H Urine RBC 0-5 SEEN Urine WBC 0-5 SEEN Ur Squamous Epith Cells 0-5 SEEN Urine Bacteria RARE Urine Mucus 0 SEEN MRSA (PCR) Negative 09/08/19 09/08/19 07:05 10:20 WBC RBC Hgb Hct MCV MCH MCHC RDW Std Deviation RDW Coeff of Yeny Plt Count MPV Immature Gran % (Auto) Neut % (Auto) Lymph % (Auto) [place] % (Auto) Eos % (Auto) Baso % (Auto) Absolute Neuts (auto) Absolute Lymphs (auto) Nucleated RBC % PT INR Specimen Type Sample Site pH Bicarbonate Actual POC Total CO2 Base Excess O2 Saturation ABG pCO2 ABG pO2 Pavel Test O2 Delivery Device Liter Flow Blood Gas Notified Whom Blood Gas Notified Time Sodium Potassium Chloride Carbon Dioxide Anion Gap BUN Creatinine Estim Creat Clear Calc Est GFR (MDRD) Af Amer Est GFR (MDRD) Non-Af BUN/Creatinine Ratio Glucose Lactic Acid Calcium Magnesium Total Bilirubin AST ALT Alkaline Phosphatase Troponin I 0.033 0.019 B-Natriuretic Peptide Total Protein Albumin Globulin Albumin/Globulin Ratio Triglycerides Cholesterol LDL Cholesterol VLDL Cholesterol HDL Cholesterol TSH Urine Color Urine Clarity Urine pH Ur Specific [place] Urine Protein Urine Glucose (UA) Urine Ketones Urine Occult Blood Urine Nitrite Urine Bilirubin Urine Urobilinogen Ur Leukocyte Esterase Urine RBC Urine WBC Ur Squamous Epith Cells Urine Bacteria Urine Mucus MRSA (PCR) POC Glucose 09/08/19 09/08/19 09/08/19 16:39 11:43 07:03 POC Glucose 349 H 283 H 122 H 09/08/19 04:03 POC Glucose 135 H Assessment/Plan All Active Problems (Last Reviewed 10/24/18 @ 14:45 by Christian Shook MD) Acute respiratory failure with hypoxia (Acute) Right lower lobe pneumonia (Acute) Lymphedema (Acute) Atrial fibrillation with rapid ventricular response (Resolved ~07/11/16) H/O aortic valve replacement (Resolved) H/O coronary artery bypass surgery (Resolved ~02/24/16) Cellulitis (Resolved) Chest pain (Resolved) Congestive heart failure (Resolved) Hypoxemia (Resolved) Moderate calcific aortic stenosis (Resolved) Ulcer of left lower extremity with fat layer exposed (Resolved) Ulcer of right lower leg (Resolved) Wound of right leg (Resolved) 1. Acute kidney injury on chronic kidney disease stage 3b-4. 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 DARRYL (fluctuation in SCr) is likely due to hemodynamic changes. Renal function is essentially unchanged in the past 2 years. Agree with not programming Lasix for now. Can use Lasix as needed if there is acute respiratory distress. He does not currently look overtly volume overloaded. Recheck renal panel in am. Monitor volume status. 2. T2DM. Glycemic control per hospital medicine service. 3. CAP. On Levaquin. Dose is OK for the current CrCl.
[2019-09-08] MEDS: Atorvastatin Calcium 40 MG Tablet PO (21:04)
[2019-09-08 21:15] LABS: Bedside Glucose 373 mg/dL (70-110)
[2019-09-09] VITALS (25 sets, daily range): BP systolic 88–147; BP diastolic 43–84; PULSE 58–98; RESP 13–24; TEMP 35.9–36.5; O2SAT 91–100
[2019-09-09] MEDS: Ipratropium/Albuterol Sulfate 3 ML AMPUL.NEB INHALATION ×4 (02:33→15:34)
[2019-09-09 04:13] LABS: Absolute Lymphocyte Count 0.85 X10^3/uL (0.83-4.51); Absolute Neutrophil Count 17.2 X10^3/uL (2.0-7.7); Basophil# 0.02 X10^3/uL; Basophil% 0.1 % (0-1); Hemoglobin 10.3 g/dL (13.0-16.5); Lymphocyte # 0.85 X10^3/ul (4.0); Lymphocyte % 4.4 % (19-41); Mean Corp Hgb Conc 33.2 g/dL (32-36); Mean Corpuscular Hgb 31.1 pg (27.0-32.0); Mean Corpuscular Volume 93.7 fL (80-94); Mean Platelet Vol. 9.8 fl (6.2-12.0); Monocyte# 0.97 X10^3/uL; Monocyte% 5.1 % (0-10); NRBC Flagged by Analyzer 0 % (0-5); Neutrophil # 17.15 X10^3/uL (2.7-7.7); Neutrophil % 89.6 % (47-70); Platelet Count 188 K/mm3 (150-450); RBC Distribution Width CV 13.5 % (11.6-14.6); RBC Distribution Width SD 45.9 fl (35.1-43.9); Red Blood Count 3.31 M/mm3 (4.6-6.2); White Blood Count 19.2 K/mm3 (4.4-11.0)
[2019-09-09 04:20] LABS: International Normalized Ratio 2.4
[2019-09-09 04:28] LABS: Anion Gap 10 (5-15); BUN 79 mg/dL (7-18); BUN/Creat Ratio 29.4 RATIO (10-20); Calcium,Total 8.4 mg/dL (8.5-10.1); Chloride 109 mmol/L (98-107); Creatinine, Serum 2.69 mg/dL (0.70-1.30); EST Glomerular Filtration Rate 25 mL/min (>60); Est Glom Filt Rate - Afr Amer 30 mL/min (>60); Estimated Creatinine Clearance 19.69 ml/min; Glucose 221 mg/dL (74-106); Magnesium 1.7 mg/dL (1.6-2.6); Sodium Level 139 mmol/L (136-145)
--- NOTE | 2019-09-09 06:40 | PCM.PN.INT ---
Subjective: The patient was seen and examined at the bedside this morning. Events from the last 24 hours have been reviewed. The patient is currently afebrile, hemodynamically stable and maintaining appropriate oxygen saturations on room air. He wore his home CPAP overnight. He is currently documented to be overall net -1.2 L for the admission. The patient does report feeling improved from a respiratory perspective this morning. Objective: The patient's most recent lab work, culture data and imaging studies have all been personally reviewed. Surface echocardiogram revealed normal LV size and thickness with an ejection fraction of 45 to 50%. Strep and urine Legionella antigens were both negative. Respiratory viral panel was negative. General: Alert, Oriented x3, Cooperative, No apparent distress HEENT: Atraumatic, PERRLA, Normocephalic Oral: No Gingival or Mucosal Lesions/ Ulcerations Neck: Supple, No Nodes, Trachea Midline Lungs: No rhonchi, No wheeze, No rales, Diminished Cardiovascular: Regular rate, Regular Rhythm, Normal S1, Normal S2, - - Currently in sinus rhythm Abdomen: Bowel Sounds Present, Soft, Non Tender Extremities: No clubbing, No cyanosis, Edema Skin: - - No significant change from previous. Musculoskeletal: No Tenderness to Palpation of Joints or Extremities Lymphatic: No Cervical, Supraclavicular, or Inguinal Adenopathy Neurological: Cranial nerves II-XII grossly intact, Neuro grossly intact Psych/Mental Status: Normal Affect, Appropriate Vital Signs Temp Pulse Resp BP Pulse Ox 96.7 F L 74 16 100/44 L 96 09/09/19 04:00 09/09/19 06:00 09/09/19 06:00 09/09/19 06:00 09/09/19 06:00 Oxygen Flow Rate (L/min) 3 Oxygen Delivery Method CPAP Weight: 282 lb 13.649 oz Body Mass Index (BMI) 47.0 Finger Stick Blood Glucose 227 Intake and Output for Last 24 Hours 09/07/19 09/08/19 09/09/19 23:59 23:59 23:59 Intake Total 0.4 / 0.4 2329.55 / 2329.55 50 / 50 Output Total 3400 / 3400 250 / 250 Balance 0.4 / 0.4 -1070.45 / -1070.45 -200 / -200 Labs (Last 48 Hours) 09/07/19 09/07/19 09/07/19 22:50 22:50 22:50 WBC 19.2 H RBC 3.67 L Hgb 11.2 L Hct 35.2 L MCV 95.9 H MCH 30.5 MCHC 31.8 L RDW Std Deviation 48.1 H RDW Coeff of Yeny 13.7 Plt Count 219 MPV 10.6 Immature Gran % (Auto) 0.700 Neut % (Auto) 83.6 H Lymph % (Auto) 9.2 L Collier % (Auto) 5.4 Eos % (Auto) 0.7 Baso % (Auto) 0.4 Absolute Neuts (auto) 16.0 H Absolute Lymphs (auto) 1.76 Nucleated RBC % 0 PT INR Specimen Type Sample Site pH Bicarbonate Actual POC Total CO2 Base Excess O2 Saturation ABG pCO2 ABG pO2 Pavel Test O2 Delivery Device Liter Flow Blood Gas Notified Whom Blood Gas Notified Time Sodium 139 Potassium 5.3 H Chloride 109 H Carbon Dioxide 22.0 Anion Gap 8 BUN 60 H Creatinine 2.35 H Estim Creat Clear Calc 25.91 Est GFR (MDRD) Af Amer 35 L Est GFR (MDRD) Non-Af 29 L BUN/Creatinine Ratio 25.5 H Glucose 245 H Lactic Acid Calcium 8.7 Magnesium Total Bilirubin 0.80 AST 19 ALT 25 Alkaline Phosphatase 140 H Troponin I 0.016 B-Natriuretic Peptide 705.2 H Total Protein 7.9 Albumin 3.2 Globulin 4.7 H Albumin/Globulin Ratio 0.7 L Triglycerides Cholesterol LDL Cholesterol VLDL Cholesterol HDL Cholesterol TSH Urine Color Urine Clarity Urine pH Ur Specific [place] Urine Protein Urine Glucose (UA) Urine Ketones Urine Occult Blood Urine Nitrite Urine Bilirubin Urine Urobilinogen Ur Leukocyte Esterase Urine RBC Urine WBC Ur Squamous Epith Cells Urine Bacteria Urine Mucus MRSA (PCR) POC Glucose 09/07/19 09/07/19 09/08/19 23:27 23:40 04:03 WBC RBC Hgb Hct MCV MCH MCHC RDW Std Deviation RDW Coeff of Yeny Plt Count MPV Immature Gran % (Auto) Neut % (Auto) Lymph % (Auto) Collier % (Auto) Eos % (Auto) Baso % (Auto) Absolute Neuts (auto) Absolute Lymphs (auto) Nucleated RBC % PT INR Specimen Type ART Sample Site R Radial pH 7.39 Bicarbonate Actual 19.4 L POC Total CO2 20 Base Excess -5 L O2 Saturation 93 L ABG pCO2 32.0 L ABG pO2 68 L Pavel Test POS O2 Delivery Device Nasal Can Liter Flow 4.0 Blood Gas Notified Whom ED MD Blood Gas Notified Time 2320 Sodium Potassium Chloride Carbon Dioxide Anion Gap BUN Creatinine Estim Creat Clear Calc Est GFR (MDRD) Af Amer Est GFR (MDRD) Non-Af BUN/Creatinine Ratio Glucose Lactic Acid 1.0 Calcium Magnesium Total Bilirubin AST ALT Alkaline Phosphatase Troponin I B-Natriuretic Peptide Total Protein Albumin Globulin Albumin/Globulin Ratio Triglycerides Cholesterol LDL Cholesterol VLDL Cholesterol HDL Cholesterol TSH Urine Color Urine Clarity Urine pH Ur Specific [place] Urine Protein Urine Glucose (UA) Urine Ketones Urine Occult Blood Urine Nitrite Urine Bilirubin Urine Urobilinogen Ur Leukocyte Esterase Urine RBC Urine WBC Ur Squamous Epith Cells Urine Bacteria Urine Mucus MRSA (PCR) POC Glucose 135 H 09/08/19 09/08/19 09/08/19 04:15 04:15 04:15 WBC 15.4 H RBC 3.28 L Hgb 10.1 L Hct 31.4 L MCV 95.7 H MCH 30.8 MCHC 32.2 RDW Std Deviation 48.3 H RDW Coeff of Yeny 13.7 Plt Count 191 MPV 10.2 Immature Gran % (Auto) 0.600 Neut % (Auto) 81.6 H Lymph % (Auto) 10.6 L [place] % (Auto) 6.3 Eos % (Auto) 0.6 Baso % (Auto) 0.3 Absolute Neuts (auto) 12.6 H Absolute Lymphs (auto) 1.64 Nucleated RBC % 0 PT 24.7 H INR 2.2 Specimen Type Sample Site pH Bicarbonate Actual POC Total CO2 Base Excess O2 Saturation ABG pCO2 ABG pO2 Pavel Test O2 Delivery Device Liter Flow Blood Gas Notified Whom Blood Gas Notified Time Sodium Potassium Chloride Carbon Dioxide Anion Gap BUN Creatinine Estim Creat Clear Calc Est GFR (MDRD) Af Amer Est GFR (MDRD) Non-Af BUN/Creatinine Ratio Glucose Lactic Acid Calcium Magnesium 1.8 Total Bilirubin AST ALT Alkaline Phosphatase Troponin I B-Natriuretic Peptide Total Protein Albumin Globulin Albumin/Globulin Ratio Triglycerides Cholesterol LDL Cholesterol VLDL Cholesterol HDL Cholesterol TSH Urine Color Urine Clarity Urine pH Ur Specific [place] Urine Protein Urine Glucose (UA) Urine Ketones Urine Occult Blood Urine Nitrite Urine Bilirubin Urine Urobilinogen Ur Leukocyte Esterase Urine RBC Urine WBC Ur Squamous Epith Cells Urine Bacteria Urine Mucus MRSA (PCR) POC Glucose 09/08/19 09/08/19 09/08/19 04:15 04:15 04:15 WBC RBC Hgb Hct MCV MCH MCHC RDW Std Deviation RDW Coeff of Yeny Plt Count MPV Immature Gran % (Auto) Neut % (Auto) Lymph % (Auto) Collier % (Auto) Eos % (Auto) Baso % (Auto) Absolute Neuts (auto) Absolute Lymphs (auto) Nucleated RBC % PT INR Specimen Type Sample Site pH Bicarbonate Actual POC Total CO2 Base Excess O2 Saturation ABG pCO2 ABG pO2 Pavel Test O2 Delivery Device Liter Flow Blood Gas Notified Whom Blood Gas Notified Time Sodium 142 Potassium 4.9 Chloride 112 H Carbon Dioxide 23.0 Anion Gap 7 BUN 63 H Creatinine 2.23 H Estim Creat Clear Calc 23.75 Est GFR (MDRD) Af Amer 37 L Est GFR (MDRD) Non-Af 30 L BUN/Creatinine Ratio 28.3 H Glucose 131 H Lactic Acid Calcium 8.5 Magnesium Total Bilirubin AST ALT Alkaline Phosphatase Troponin I B-Natriuretic Peptide Total Protein Albumin Globulin Albumin/Globulin Ratio Triglycerides 83 Cholesterol 97 LDL Cholesterol 47 VLDL Cholesterol 17 HDL Cholesterol 33 L TSH 3.64 Urine Color Straw Urine Clarity Clear Urine pH 6.0 Ur Specific [place] 1.010 Urine Protein 30 H Urine Glucose (UA) Normal Urine Ketones Negative Urine Occult Blood 250 H Urine Nitrite Negative Urine Bilirubin Negative Urine Urobilinogen Normal Ur Leukocyte Esterase 25 H Urine RBC 0-5 SEEN Urine WBC 0-5 SEEN Ur Squamous Epith Cells 0-5 SEEN Urine Bacteria RARE Urine Mucus 0 SEEN MRSA (PCR) Negative POC Glucose 09/08/19 09/08/19 09/08/19 04:15 07:03 07:05 WBC RBC Hgb Hct MCV MCH MCHC RDW Std Deviation RDW Coeff of Yeny Plt Count MPV Immature Gran % (Auto) Neut % (Auto) Lymph % (Auto) [place] % (Auto) Eos % (Auto) Baso % (Auto) Absolute Neuts (auto) Absolute Lymphs (auto) Nucleated RBC % PT INR Specimen Type Sample Site pH Bicarbonate Actual POC Total CO2 Base Excess O2 Saturation ABG pCO2 ABG pO2 Pavel Test O2 Delivery Device Liter Flow Blood Gas Notified Whom Blood Gas Notified Time Sodium Potassium Chloride Carbon Dioxide Anion Gap BUN Creatinine Estim Creat Clear Calc Est GFR (MDRD) Af Amer Est GFR (MDRD) Non-Af BUN/Creatinine Ratio Glucose Lactic Acid Calcium Magnesium Total Bilirubin AST ALT Alkaline Phosphatase Troponin I 0.033 0.033 B-Natriuretic Peptide Total Protein Albumin Globulin Albumin/Globulin Ratio Triglycerides Cholesterol LDL Cholesterol VLDL Cholesterol HDL Cholesterol TSH Urine Color Urine Clarity Urine pH Ur Specific [place] Urine Protein Urine Glucose (UA) Urine Ketones Urine Occult Blood Urine Nitrite Urine Bilirubin Urine Urobilinogen Ur Leukocyte Esterase Urine RBC Urine WBC Ur Squamous Epith Cells Urine Bacteria Urine Mucus MRSA (PCR) POC Glucose 122 H 09/08/19 09/08/19 09/08/19 10:20 11:43 16:39 WBC RBC Hgb Hct MCV MCH MCHC RDW Std Deviation RDW Coeff of Yeny Plt Count MPV Immature Gran % (Auto) Neut % (Auto) Lymph % (Auto) [place] % (Auto) Eos % (Auto) Baso % (Auto) Absolute Neuts (auto) Absolute Lymphs (auto) Nucleated RBC % PT INR Specimen Type Sample Site pH Bicarbonate Actual POC Total CO2 Base Excess O2 Saturation ABG pCO2 ABG pO2 Pavel Test O2 Delivery Device Liter Flow Blood Gas Notified Whom Blood Gas Notified Time Sodium Potassium Chloride Carbon Dioxide Anion Gap BUN Creatinine Estim Creat Clear Calc Est GFR (MDRD) Af Amer Est GFR (MDRD) Non-Af BUN/Creatinine Ratio Glucose Lactic Acid Calcium Magnesium Total Bilirubin AST ALT Alkaline Phosphatase Troponin I 0.019 B-Natriuretic Peptide Total Protein Albumin Globulin Albumin/Globulin Ratio Triglycerides Cholesterol LDL Cholesterol VLDL Cholesterol HDL Cholesterol TSH Urine Color Urine Clarity Urine pH Ur Specific [place] Urine Protein Urine Glucose (UA) Urine Ketones Urine Occult Blood Urine Nitrite Urine Bilirubin Urine Urobilinogen Ur Leukocyte Esterase Urine RBC Urine WBC Ur Squamous Epith Cells Urine Bacteria Urine Mucus MRSA (PCR) POC Glucose 283 H 349 H 09/08/19 09/09/19 09/09/19 21:00 04:05 04:05 WBC 19.2 H RBC 3.31 L Hgb 10.3 L Hct 31.0 L MCV 93.7 MCH 31.1 MCHC 33.2 RDW Std Deviation 45.9 H RDW Coeff of Yeny 13.5 Plt Count 188 MPV 9.8 Immature Gran % (Auto) 0.800 Neut % (Auto) 89.6 H Lymph % (Auto) 4.4 L [place] % (Auto) 5.1 Eos % (Auto) 0.0 Baso % (Auto) 0.1 Absolute Neuts (auto) 17.2 H Absolute Lymphs (auto) 0.85 Nucleated RBC % 0 PT 26.0 H INR 2.4 Specimen Type Sample Site pH Bicarbonate Actual POC Total CO2 Base Excess O2 Saturation ABG pCO2 ABG pO2 Pavel Test O2 Delivery Device Liter Flow Blood Gas Notified Whom Blood Gas Notified Time Sodium Potassium Chloride Carbon Dioxide Anion Gap BUN Creatinine Estim Creat Clear Calc Est GFR (MDRD) Af Amer Est GFR (MDRD) Non-Af BUN/Creatinine Ratio Glucose Lactic Acid Calcium Magnesium Total Bilirubin AST ALT Alkaline Phosphatase Troponin I B-Natriuretic Peptide Total Protein Albumin Globulin Albumin/Globulin Ratio Triglycerides Cholesterol LDL Cholesterol VLDL Cholesterol HDL Cholesterol TSH Urine Color Urine Clarity Urine pH Ur Specific [place] Urine Protein Urine Glucose (UA) Urine Ketones Urine Occult Blood Urine Nitrite Urine Bilirubin Urine Urobilinogen Ur Leukocyte Esterase Urine RBC Urine WBC Ur Squamous Epith Cells Urine Bacteria Urine Mucus MRSA (PCR) POC Glucose 373 H 09/09/19 04:05 WBC RBC Hgb Hct MCV MCH MCHC RDW Std Deviation RDW Coeff of Yeny Plt Count MPV Immature Gran % (Auto) Neut % (Auto) Lymph % (Auto) [place] % (Auto) Eos % (Auto) Baso % (Auto) Absolute Neuts (auto) Absolute Lymphs (auto) Nucleated RBC % PT INR Specimen Type Sample Site pH Bicarbonate Actual POC Total CO2 Base Excess O2 Saturation ABG pCO2 ABG pO2 Pavel Test O2 Delivery Device Liter Flow Blood Gas Notified Whom Blood Gas Notified Time Sodium 139 Potassium 5.0 Chloride 109 H Carbon Dioxide 20.0 L Anion Gap 10 BUN 79 H Creatinine 2.69 H Estim Creat Clear Calc 19.69 Est GFR (MDRD) Af Amer 30 L Est GFR (MDRD) Non-Af 25 L BUN/Creatinine Ratio 29.4 H Glucose 221 H Lactic Acid Calcium 8.4 L Magnesium 1.7 Total Bilirubin AST ALT Alkaline Phosphatase Troponin I B-Natriuretic Peptide Total Protein Albumin Globulin Albumin/Globulin Ratio Triglycerides Cholesterol LDL Cholesterol VLDL Cholesterol HDL Cholesterol TSH Urine Color Urine Clarity Urine pH Ur Specific [place] Urine Protein Urine Glucose (UA) Urine Ketones Urine Occult Blood Urine Nitrite Urine Bilirubin Urine Urobilinogen Ur Leukocyte Esterase Urine RBC Urine WBC Ur Squamous Epith Cells Urine Bacteria Urine Mucus MRSA (PCR) POC Glucose Microbiology 09/08/19 08:49 Mucosa - Nasopharyngeal Respiratory Panel (PCR) - Final 09/08/19 04:15 Urine Catheter - Frye Legionella Antigen - Final 09/08/19 04:15 Urine Catheter - Frye Streptococcus pneumoniae Antigen (M - Final Clinical Impression(s) from Imaging Studies Chest X-Ray 09/07/19 22:58 IMPRESSION: Mild cardiomegaly. Status post tenotomy. Ill-defined infiltrate and/or atelectasis of the right lung base, new in the interval. Calcified plaques of the aortic arch. Electronically Signed: Duong Good MD at 23:28 EDT , Service support , Medical Necessity - Tobacco Use Smoking Status: Former smoker Assessment/Plan All Active Problems (Last Reviewed 10/24/18 @ 14:45 by Christian Shook MD) Acute respiratory failure with hypoxia (Acute) Right lower lobe pneumonia (Acute) Lymphedema (Acute) Atrial fibrillation with rapid ventricular response (Resolved ~07/11/16) H/O aortic valve replacement (Resolved) H/O coronary artery bypass surgery (Resolved ~02/24/16) Cellulitis (Resolved) Chest pain (Resolved) Congestive heart failure (Resolved) Hypoxemia (Resolved) Moderate calcific aortic stenosis (Resolved) Ulcer of left lower extremity with fat layer exposed (Resolved) Ulcer of right lower leg (Resolved) Wound of right leg (Resolved) RECOMMENDATIONS: 1. Stop Lasix. 2. Continue empiric antimicrobials, with plans to complete a 7-day treatment course. 3. Perform walking oximetry study to ensure adequacy of oxygenation with exertion. 4. Continue nocturnal CPAP therapy per home regimen. 5. Encourage incentive spirometer use and mobilize patient as tolerated. 6. The patient is medically stable for transfer out of the intensive care unit. IMPRESSIONS: 1. Acute hypoxemic respiratory failure Clinical concern for underlying community acquired pneumonia and potential decompensated heart failure with preserved ejection fraction. Unclear where the patient's history of COPD came from, as the patient has never had pulmonary function studies completed, nor does he utilize any inhalers in his home environment. At this time, the patient will be continued on empiric antimicrobials, pending infectious work-up. I would once again recommend the discontinuation of diuretics, given worsening renal insufficiency. Perform walking oximetry study prior to consideration for discharge home to ensure adequacy of oxygenation with exertion. Encourage incentive spirometer use and mobilize patient as tolerated. 2. History of ischemic cardiomyopathy status post CABG/aortic valve replacement/paroxysmal atrial fibrillation Cardiology is following. Diuretics can be restarted once the patient's hemodynamics stabilize and renal function improves. 3. Acute on chronic kidney disease Likely secondary to prerenal etiology in the setting of tenuous hemodynamics. Creatinine has worsened in light of diuretics being administered yesterday. Nephrology is following, who was in agreement yesterday to discontinue Lasix. However, the patient's Lasix was subsequently reordered and administered yesterday afternoon. Continue to monitor urine output. No current indication for renal replacement therapy. 4. History of obstructive sleep apnea Continue nocturnal CPAP therapy per home regimen. 5. Unspecified seizure disorder/obesity/diabetes mellitus/GERD/hypertension/hyperlipidemia Complicates care, management, recovery and prognosis. Continue insulin regimen and sliding scale coverage. This note was generated with [employer] dictation software. It may contain incorrect words, spelling, and punctuation that were not noted in checking the note before signing. Code Visit Inpatient E&M: 36920 [facility] L3
[2019-09-09 06:50] LABS: Bedside Glucose 207 mg/dL (70-110)
--- NOTE | 2019-09-09 07:23 | PCM.PN.HOSP ---
Patient Problems: Active and Suspected Problems (Last Reviewed 10/24/18 @ 14:45 by Christian Shook MD) Acute respiratory failure with hypoxia (Acute) Right lower lobe pneumonia (Acute) Lymphedema (Acute) Subjective: Follow-up acute respiratory failure Patient is a 79-year-old gentleman admitted with progressive shortness of breath. On assessment of acute hypoxic respiratory failure was made admitted to the intensive care unit patient started on noninvasive ventilation subsequently. Objective: GENERAL: cooperative HEENT: Atraumatic; EYES; Anicteric, Normal Conjunctiva NECK; supple, normal thyroid, RESPIRATORY: Diminished to auscultation CARDIOVASCULAR: Regular S1 S2, GI: soft, normoactive bowel sounds, : No Renal angle tenderness; EXTREMITIES: Bilateral stasis dermatitis with trace edema MUSCULOSKELETAL: No Joint Tenderness; NEURO: Awake; no lateralizing signs. SKIN: As described above PSYCH; Normal affect Vitals/I&O's: Vital Signs Temp Pulse Resp BP Pulse Ox 96.7 F L 74 16 100/44 L 96 09/09/19 04:00 09/09/19 06:00 09/09/19 06:00 09/09/19 06:00 09/09/19 06:00 Oxygen Flow Rate (L/min) 3 Oxygen Delivery Method CPAP Weight: 126.6 kg Body Mass Index (BMI) 47.0 Finger Stick Blood Glucose 227 Intake and Output for Last 24 Hours 09/07/19 09/08/19 09/09/19 23:59 23:59 23:59 Intake Total 0.4 / 0.4 2329.55 / 2329.55 50 / 50 Output Total 3400 / 3400 250 / 250 Balance 0.4 / 0.4 -1070.45 / -1070.45 -200 / -200 Microbiology Past 72 Hours 09/08/19 08:49 Mucosa - Nasopharyngeal Respiratory Panel (PCR) - Final 09/08/19 04:15 Urine Catheter - [facility] Legionella Antigen - Final 09/08/19 04:15 Urine Catheter - [facility] Streptococcus pneumoniae Antigen (M - Final Laboratory Results 09/08/19 07:05: Troponin I 0.033 09/08/19 10:20: Troponin I 0.019 09/08/19 11:43: POC Glucose 283 H 09/08/19 16:39: POC Glucose 349 H 09/08/19 21:00: POC Glucose 373 H 09/09/19 04:05: PT 26.0 H, INR 2.4 09/09/19 04:05: WBC 19.2 H, RBC 3.31 L, Hgb 10.3 L, Hct 31.0 L, MCV 93.7, MCH 31.1, MCHC 33.2, RDW Std Deviation 45.9 H, RDW Coeff of Yeny 13.5, Plt Count 188, MPV 9.8, Immature Gran % (Auto) 0.800, Neut % (Auto) 89.6 H, Lymph % (Auto) 4.4 L, [place] % (Auto) 5.1, Eos % (Auto) 0.0, Baso % (Auto) 0.1, Absolute Neuts (auto) 17.2 H, Absolute Lymphs (auto) 0.85, Nucleated RBC % 0 09/09/19 04:05: Sodium 139, Potassium 5.0, Chloride 109 H, Carbon Dioxide 20.0 L, Anion Gap 10, BUN 79 H, Creatinine 2.69 H, Estim Creat Clear Calc 19.69, Est GFR (MDRD) Af Amer 30 L, Est GFR (MDRD) Non-Af 25 L, BUN/Creatinine Ratio 29.4 H, Glucose 221 H, Calcium 8.4 L, Magnesium 1.7 09/09/19 06:47: POC Glucose 207 H Current Medications Acetaminophen (Tylenol) 650 mg PO Q6H PRN PRN PRN Reason: Pain Score 1-3/Temp > 100.7 F Albuterol Sulfate (Ventolin Aerosols) 2.5 mg INHALATION Q2H PRN PRN PRN Reason: SOB/Wheezing Albuterol/Ipratropium (Duoneb) 3 ml INHALATION Q4H.RT [facility] Last Admin: 09/09/19 06:51 Dose: 3 ml Documented by: [facility]op[facility]) [facility] Last Admin: 09/08/19 08:37 Dose: 150 mg Documented by: Aspirin (Ecotrin) 81 mg PO DAILY [facility] Last Admin: 09/08/19 09:37 Dose: 81 mg Documented by: Atorvastatin Calcium (Lipitor) 40 mg PO QHS [facility] Last Admin: 09/08/19 21:04 Dose: 40 mg Documented by: Bisacodyl (Dulcolax) 10 mg RECTAL DAILY PRN PRN PRN Reason: Constipation Cholecalciferol (Vitamin D) 1,000 unit PO DAILY [facility] Last Admin: 09/08/19 09:41 Dose: 1,000 unit Documented by: Dextrose (D50w Syringe) 0 gm IV X1 PRN; Protocol PRN Reason: Hypoglycemia Famotidine (Pepcid) 20 mg PO DAILY [facility] Last Admin: 09/08/19 09:40 Dose: 20 mg Documented by: Glucagon () 1 mg IM .X1 PRN PRN Reason: Hypoglycemia Guaifenesin (Mucinex) 1,200 mg PO BID [facility] Last Admin: 09/08/19 21:03 Dose: 1,200 mg Documented by: Sodium Chloride () 250 mls @ 15 mls/hr IV .[id number] PRN PRN Reason: SALINE FLUSH Last Infusion: 09/08/19 12:10 Dose: 0 mls/hr Documented by: Levofloxacin (Levaquin Iv) 500 mg in 100 mls @ 100 mls/hr IV Q48 [facility] Stop: 09/16/19 10:59 Last Infusion: 09/08/19 06:22 Dose: Infused Documented by: Insulin Human Lispro (Humalog Kwikpen (Bkc)) 25 unit SC BIDCM [facility] Last Admin: 09/08/19 16:42 Dose: 25 u Documented by: Insulin Human Lispro (Humalog Kwikpen (Bkc)) 0 unit SC ACHS [facility]; Protocol Last Admin: 09/08/19 21:04 Dose: 8 u Documented by: Insulin Human NPH (Humulin N (Bkc)) 25 units SC BIDCM [facility] Last Admin: 09/08/19 16:42 Dose: 25 u Documented by: Levetiracetam (Keppra Tablet) 250 mg PO BID [facility] Last Admin: 09/08/19 21:03 Dose: 250 mg Documented by: Metoprolol Tartrate (Lopressor (Beta Karyn)) 25 mg PO BID [facility] Last Admin: 09/08/19 21:04 Dose: 25 mg Documented by: Pantoprazole Sodium (Protonix) 20 mg PO DAILY [facility] Last Admin: 09/08/19 09:40 Dose: 20 mg Documented by: Polyethylene Glycol (Miralax) 17 gm PO DAILY [facility] Last Admin: 09/08/19 09:39 Dose: Not Given Documented by: Polysaccharide Iron Complex (Ferrex 150) 150 mg PO QODAY [facility] Last Admin: 09/08/19 09:38 Dose: 150 mg Documented by: Prochlorperazine Edisylate (Compazine Iv) 5 mg IV Q4H PRN PRN PRN Reason: Breakthrough Nausea/Vomiting Senna/Docusate Sodium (Senokot-S, Makayla-Colace) 2 tablet PO BID PRN PRN Reason: Constipation Sertraline HCl (Zoloft) 25 mg PO DAILY [facility] Last Admin: 09/08/19 09:41 Dose: 25 mg Documented by: Sodium Chloride () 5 - 15 ml IV UD PRN PRN Reason: SALINE FLUSH Last Admin: 09/08/19 13:44 Dose: 10 ml Documented by: Warfarin Sodium (Coumadin (Pbkc)) 2.5 mg PO DAILY@1700 [facility] Last Admin: 09/08/19 17:04 Dose: 2.5 mg Documented by: Medical Necessity - Tobacco Use Smoking Status: Former smoker Assessment/Plan All Active Problems (Last Reviewed 10/24/18 @ 14:45 by Christian Shook MD) Acute respiratory failure with hypoxia (Acute) Right lower lobe pneumonia (Acute) Lymphedema (Acute) Atrial fibrillation with rapid ventricular response (Resolved ~07/11/16) H/O aortic valve replacement (Resolved) H/O coronary artery bypass surgery (Resolved ~02/24/16) Cellulitis (Resolved) Chest pain (Resolved) Congestive heart failure (Resolved) Hypoxemia (Resolved) Moderate calcific aortic stenosis (Resolved) Ulcer of left lower extremity with fat layer exposed (Resolved) Ulcer of right lower leg (Resolved) Wound of right leg (Resolved) Patient is a 79-year-old gentleman admitted with progressive shortness of breath. On assessment of acute hypoxic respiratory failure was made admitted to the intensive care unit patient started on noninvasive ventilation subsequently. 1. Acute hypoxic respiratory failure ~Multifactorial including CHF with acute exacerbation, COPD with acute exacerbation and suspected pneumonia patient was started on noninvasive ventilation admitted to the intensive care unit 2. Acute on chronic CHF with preserved ejection fraction ~Admitted to the intensive care unit started on noninvasive ventilation in addition to fluid restriction, daily input and output Daily weight and IV Lasix. Consult was placed to cardiology ~Patient was seen by cardiology was felt patient pneumonia was contributing more to his respiratory status done congestive heart failure. 3. COPD exacerbation ~Patient on bronchodilator treatment in addition to antibiotics and supplemental oxygen via noninvasive ventilation; it was placed pulmonary medicine 4. Suspected pneumonia ~started on Levaquin in addition to above treatment described above ?Cultures have remained negative to date 5. Chronic kidney disease stage IV ~Consult placed to nephrology; and by Dr. encinas his note and recommendations reviewed 6. Obstructive sleep apnea ?Patient is on CPAP at night continued 7. Diabetes mellitus type II ~Controlled Placed on long acting insulin, Accu-Cheks a.c. and at bedtime and covered with sliding scale insulin 8. History of aortic valve replacement ~ with bioprosthetic material 9. Paroxysmal atrial fibrillation ~Controlled on systemic anticoagulation with Coumadin, continued with daily monitoring of INR 10. Seizure disorder ~Controlled on Keppra did continue 11. Morbid obesity with BMI 47 ?Weight loss advised 12. Coronary artery disease ~with previous CABG 11. DVT prophylaxis on Coumadin Code Visit Inpatient E&M: 10610 Subs Hosp L2
[2019-09-09] MEDS: Insulin Lispro 100 UNIT/ML INSULN.PEN 25 UNIT SC ×2 (08:24→17:28)
[2019-09-09] MEDS: Insulin NPH Human 100 UNITS/ML PEN 25 UNITS SC ×2 (08:24→17:28)
[2019-09-09] MEDS: Allopurinol 300 MG Tablet 150 MG PO (08:25)
[2019-09-09] MEDS: Insulin Lispro 100 UNIT/ML INSULN.PEN SC ×3 (08:25→17:29)
[2019-09-09] MEDS: levETIRAcetam 500 MG Tablet 250 MG PO ×2 (08:26→21:16)
[2019-09-09] MEDS: Aspirin E.C. 81 MG Tablet PO (08:26)
[2019-09-09] MEDS: Metoprolol Tartrate 25 MG Tablet PO ×2 (08:26→21:17)
[2019-09-09] MEDS: Pantoprazole Sodium 20 MG Tablet PO (08:27)
[2019-09-09] MEDS: Sertraline 50 MG Tablet 25 MG PO (08:27)
[2019-09-09] MEDS: guaiFENesin 1,200 MG Tablet 1200 MG PO ×2 (08:27→21:18)
[2019-09-09] MEDS: Famotidine 20 MG Tablet PO (08:27)
[2019-09-09] MEDS: Polyethylene Glycol 3350 17 GM PACKET PO (08:36)
[2019-09-09 12:05] LABS: Bedside Glucose 242 mg/dL (70-110)
[2019-09-09 17:36] LABS: Bedside Glucose 162 mg/dL (70-110)
[2019-09-09] MEDS: Atorvastatin Calcium 40 MG Tablet PO (21:17)
[2019-09-09 21:26] LABS: Bedside Glucose 97 mg/dL (70-110)
[2019-09-10] VITALS (12 sets, daily range): BP systolic 122–148; BP diastolic 63–79; PULSE 55–72; RESP 16–19; TEMP 36.1–36.4; O2SAT 87–97
[2019-09-10 06:17] LABS: Absolute Lymphocyte Count 1.94 X10^3/uL (0.83-4.51); Absolute Neutrophil Count 9.8 X10^3/uL (2.0-7.7); Basophil# 0.04 X10^3/uL; Basophil% 0.3 % (0-1); Eosinophil# 0.13 X10^3/uL; Hematocrit 32.5 % (40-54); Hemoglobin 10.4 g/dL (13.0-16.5); Lymphocyte # 1.94 X10^3/ul (4.0); Lymphocyte % 15.2 % (19-41); Mean Corpuscular Hgb 30.1 pg (27.0-32.0); Mean Corpuscular Volume 94.2 fL (80-94); Mean Platelet Vol. 10.5 fl (6.2-12.0); Monocyte# 0.76 X10^3/uL; NRBC Flagged by Analyzer 0 % (0-5); Neutrophil # 9.78 X10^3/uL (2.7-7.7); Neutrophil % 76.6 % (47-70); Platelet Count 178 K/mm3 (150-450); RBC Distribution Width CV 13.8 % (11.6-14.6); RBC Distribution Width SD 47.4 fl (35.1-43.9); Red Blood Count 3.45 M/mm3 (4.6-6.2); White Blood Count 12.8 K/mm3 (4.4-11.0)
[2019-09-10 06:22] LABS: International Normalized Ratio 2.9; Prothrombin Time (Protime)PT. 30.7 SECONDS (11.7-14.9)
[2019-09-10 06:42] LABS: Anion Gap 9 (5-15); BUN 89 mg/dL (7-18); BUN/Creat Ratio 35.2 RATIO (10-20); Calcium,Total 8.7 mg/dL (8.5-10.1); Chloride 113 mmol/L (98-107); Creatinine, Serum 2.53 mg/dL (0.70-1.30); EST Glomerular Filtration Rate 26 mL/min (>60); Est Glom Filt Rate - Afr Amer 32 mL/min (>60); Estimated Creatinine Clearance 20.93 ml/min; Glucose 102 mg/dL (74-106); Potassium 4.9 mmol/L (3.5-5.1); Sodium Level 142 mmol/L (136-145)
[2019-09-10 06:56] LABS: Bedside Glucose 93 mg/dL (70-110)
[2019-09-10] MEDS: Iron Polysaccharide Complex 150 MG CAPSULE PO (09:14)
[2019-09-10] MEDS: Pantoprazole Sodium 20 MG Tablet PO (09:14)
[2019-09-10] MEDS: Sertraline 50 MG Tablet 25 MG PO (09:14)
[2019-09-10] MEDS: Allopurinol 300 MG Tablet 150 MG PO (09:14)
[2019-09-10] MEDS: levETIRAcetam 500 MG Tablet 250 MG PO (09:14)
[2019-09-10] MEDS: Famotidine 20 MG Tablet PO (09:15)
[2019-09-10] MEDS: Aspirin E.C. 81 MG Tablet PO (09:15)
[2019-09-10] MEDS: guaiFENesin 1,200 MG Tablet 1200 MG PO (09:15)
[2019-09-10] MEDS: Metoprolol Tartrate 25 MG Tablet PO (09:15)
[2019-09-10] MEDS: Insulin Lispro 100 UNIT/ML INSULN.PEN 25 UNIT SC (09:15)
[2019-09-10] MEDS: Insulin NPH Human 100 UNITS/ML PEN 25 UNITS SC (09:16)
[2019-09-10] MEDS: Polyethylene Glycol 3350 17 GM PACKET PO (09:17)
[2019-09-10] MEDS: Ipratropium/Albuterol Sulfate 3 ML AMPUL.NEB INHALATION ×2 (11:00→14:59)
[2019-09-10] MEDS: levoFLOXacin IV 500 MG/100 ML BAG 100 MG IV (11:15)
[2019-09-10 11:16] LABS: Bedside Glucose 67 mg/dL (70-110)
--- NOTE | 2019-09-10 12:20 | PCM.DC ---
- Discharge Diagnoses Current Active Problems: Current Active and Chronic Problems (Last Reviewed 10/24/18 @ 14:45 by Christian Shook MD) Acute respiratory failure with hypoxia (Acute) Right lower lobe pneumonia (Acute) Acute exacerbation of CHF (congestive heart failure) (Chronic) Lymphedema (Acute) Hypertension (Chronic) Hyperlipemia (Chronic) Chronic renal failure, stage 3 (moderate) (Chronic) You will use the following diet at home:: Calorie/Carbohydrate Controlled (specify 1200, 1400, etc) - 1800, Fluid restricted (specify 2000 mls, 1500 mls) - 1500 Your food should be the consistency of: Regular Your liquids should be the consistency of: Regular/Thin Call your doctor if you observe: Fever of 101 or Higher, Shortness of breath Allergies/Adverse Reactions: Allergies Penicillins [PCN] Allergy (Verified 05/04/19 14:00) Swelling Medications to take at Discharge Aspirin [Adult Low Dose Aspirin EC] 81 mg PO DAILY 07/11/16 Atorvastatin Calcium [Lipitor] 40 mg PO QHS 07/11/16 Multivitamin [Daily Multiple Vitamin] 1 ea PO DAILY 07/11/16 Pantoprazole Sodium [Protonix] 20 mg PO DAILY 07/11/16 Insulin Regular, Human [Novolin R] 25 unit SC BID 07/24/16 Allopurinol [Zyloprim] 150 mg PO DAILYCM #15 tab 08/27/16 Warfarin [Coumadin] 2.5 mg PO DAILY 10/06/16 Cholecalciferol (VIT D3) [Vitamin D3] 1,000 unit PO DAILY 10/26/16 Sertraline HCl [Zoloft] 25 mg PO DAILY 01/10/18 Iron Polysaccharide Complex [Ferrex 150] 150 mg PO QODAY 02/04/18 insulin NPH isophane U-100 human 100 unit/mL subcutaneous suspension 25 unit SC BID ml 03/08/18 metoprolol tartrate 25 mg tablet 25 mg PO BID #180 tab 10/24/18 Famotidine 20 mg PO DAILY 02/06/19 isosorbide mononitrate ER 30 mg tablet,extended release 24 hr 30 mg PO DAILY #90 tab 05/04/19 levETIRAcetam tablet [Keppra tablet] 250 mg PO BID 09/08/19 Guaifenesin [Mucinex] 1,200 mg PO BID #10 tab 09/10/19 levoFLOXacin tablet [Levaquin tablet] 500 mg PO QODAY #3 tab 09/10/19 The following prescriptions were given: levoFLOXacin tablet [Levaquin tablet] 500 mg PO QODAY #3 tab Transmission Status: Pending to [id number] Guaifenesin [Mucinex] 1,200 mg PO BID #10 tab Transmission Status: Pending to [id number] Orders to be completed after discharge: Basic Metabolic Profile (BMP) Time Frame: 1 Week, Facility: [facility], Location: Laboratory Prothrombin Time w/INR Time Frame: 1 Week, Facility: [facility], Location: Laboratory Primary Care Physician: Romaine Velazquez MD [Primary Care Provider] - Within 1 Week Test Results: Test results from this visit will be discussed in further detail at your follow-up appointment, if applicable. Please Follow Up With: Dang Dyer PA When: 11/13/19 Please Follow Up With: Rebel Andersen - nephrology When: 1-2 months Please Follow Up With: Josh Cline DO - pulmonology When: 1-2 months
--- NOTE | 2019-09-10 12:23 | DS.PCM_ITS ---
Discharge Date and Diagnosis - Problem List Patient Problems: Active and Suspected Problems (Last Reviewed 10/24/18 @ 14:45 by Christian Shook MD) Acute respiratory failure with hypoxia (Acute) Right lower lobe pneumonia (Acute) Lymphedema (Acute) Date of Admission: 09/08/19 Date of Discharge: 09/10/19 - Primary Discharge Diagnosis Active and Suspected Problems (Last Reviewed 10/24/18 @ 14:45 by Christian Shook MD) Acute respiratory failure with hypoxia (Acute) Right lower lobe pneumonia (Acute) Lymphedema (Acute) - Secondary Discharge Diagnosis Chronic Problems (Last Reviewed 10/24/18 @ 14:45 by Christian Shook MD) Acute exacerbation of CHF (congestive heart failure) (Chronic) Acute on chronic diastolic (congestive) heart failure (Chronic) Chronic atrial fibrillation (Chronic) On coumadin, managed by PCP Atherosclerosis of coronary artery bypass graft without angina pectoris (Chronic) Redo CABG x 3 SVG-LAD, SVG OM of Cx, SVG- PDA of RCA and aortic valve replacement with #25 Pietro-Sheppard valve. 02/24/2016 CABG x 4 [place]-D1, SVG-Distal LAD, SVG-Lat CX, SVG-RCA 12/15/98 Non-rheumatic aortic stenosis (Chronic) Hypertension (Chronic) Left bundle branch block (Chronic) Localized edema (Chronic) Venous insufficiency of both lower extremities (Chronic) Hyperlipemia (Chronic) Chronic renal failure, stage 3 (moderate) (Chronic) Morbid obesity with BMI of 45.0-49.9, adult (Chronic) Hospital Course and Treatment Imaging Results: Clinical Impression(s) from Imaging Studies Chest X-Ray 09/07/19 22:58 IMPRESSION: Mild cardiomegaly. Status post tenotomy. Ill-defined infiltrate and/or atelectasis of the right lung base, new in the interval. Calcified plaques of the aortic arch. Electronically Signed: Duong Good MD at 23:28 EDT , Service support , Josh Cline, pulmonology Rebel Ghotra, nephrology Mel Monsivais, cardiology Operations: None Procedures: None Summary of Care Provided: The patient is a 79 year old M presents with shortness of breath. Patient was found to have faint right lower lobe infiltrate. Concern was for heart failure component as patient started on IV Lasix. Patient improved overall but did develop worsening kidney function and his creatinine went up to 2.69, baseline being around 2.35. Lasix was discontinued and creatinine today is 2.53. Overall, patient is feeling better and has been started on levofloxacin 500 mg daily. Given worsening kidney function will change it over to every other day to complete 3 more doses. Patient is currently on room air but will check an amatory pulse ox to see the patient may require oxygen at home. If he does require oxygen, then that will be arranged for him as outpatient. We will have the patient get a follow-up BMP given the worsening renal function but also his INR checked be that he will be on levofloxacin which could influence his INR. INR upon discharge was 2.9. Patient started to follow-up with pulmonology, nephrology as well as primary care physician as outpatient. To continue with nocturnal CPAP at home. [] Patient Problems: Active and Suspected Problems (Last Reviewed 10/24/18 @ 14:45 by Christian Shook MD) Acute respiratory failure with hypoxia (Acute) Right lower lobe pneumonia (Acute) Lymphedema (Acute) - Physical Exam General: Alert, No apparent distress HEENT: Atraumatic, Normocephalic Oral: Moist Mucosa, No Gingival or Mucosal Lesions/ Ulcerations Lungs: Clear to auscultation, No rhonchi, No wheeze, Diminished Cardiovascular: Regular rate, Regular Rhythm, Normal S1, Normal S2, No murmurs Abdomen: Bowel Sounds Present, Soft, Non Tender, Non-Distended Extremities: No edema, No Calf Tenderness Vital Signs Temp Pulse Resp BP Pulse Ox 36.4 C L 62 16 122/68 H 95 09/10/19 11:15 09/10/19 11:15 09/10/19 11:15 09/10/19 11:15 09/10/19 11:15 Oxygen Flow Rate (L/min) 2 Oxygen Delivery Method Room Air Weight: 125.6 kg Body Mass Index (BMI) 47.0 Finger Stick Blood Glucose 227 Intake and Output for Last 24 Hours 09/08/19 09/09/19 09/10/19 23:59 23:59 23:59 Intake Total 2329.55 / 2329.55 1030 / 1270 820 / 820 Output Total 3400 / 3400 1125 / 1125 450 / 450 Balance -1070.45 / -1070.45 -95 / 145 370 / 370 Microbiology Past 72 Hours 09/08/19 00:05 Blood Culture - Preliminary Blood Culture (Wb) - Right Hand No growth in 48 hours. 09/08/19 00:05 Blood Culture - Preliminary Blood Culture (Wb) - Anticubital Right No growth in 48 hours. 09/08/19 08:49 Respiratory Panel (PCR) - Final Mucosa - Nasopharyngeal 09/08/19 04:15 Legionella Antigen - Final Urine Catheter - [facility] 09/08/19 04:15 Streptococcus pneumoniae Antigen (M - Final Urine Catheter - [facility] Laboratory Tests Past 24 Hrs 09/10/19 09/10/19 09/10/19 05:42 05:42 05:42 WBC 12.8 H RBC 3.45 L Hgb 10.4 L Hct 32.5 L MCV 94.2 H MCH 30.1 MCHC 32.0 RDW Std Deviation 47.4 H RDW Coeff of Yeny 13.8 Plt Count 178 MPV 10.5 Immature Gran % (Auto) 0.900 Neut % (Auto) 76.6 H Lymph % (Auto) 15.2 L [place] % (Auto) 6.0 Eos % (Auto) 1.0 Baso % (Auto) 0.3 Absolute Neuts (auto) 9.8 H Absolute Lymphs (auto) 1.94 Nucleated RBC % 0 PT 30.7 H INR 2.9 Sodium 142 Potassium 4.9 Chloride 113 H Carbon Dioxide 20.0 L Anion Gap 9 BUN 89 H Creatinine 2.53 H Estim Creat Clear Calc 20.93 Est GFR (MDRD) Af Amer 32 L Est GFR (MDRD) Non-Af 26 L BUN/Creatinine Ratio 35.2 H Glucose 102 Calcium 8.7 POC Glucose 09/10/19 09/10/19 09/09/19 11:10 06:48 21:13 POC Glucose 67 L 93 97 09/09/19 17:24 POC Glucose 162 H Discharge Diet: Light diet - advance as tolerated, Low fat/ Low Cholesterol, 1800 Calorie Control Diet, 6 Cup Fluid Restriction, 2000 mg Sodium Diet Call your doctor if you observe: Fever of 101 or Higher, Shortness of breath Home Medications: Medications to take at Discharge Aspirin [Adult Low Dose Aspirin EC] 81 mg PO DAILY 07/11/16 Atorvastatin Calcium [Lipitor] 40 mg PO QHS 07/11/16 Multivitamin [Daily Multiple Vitamin] 1 ea PO DAILY 07/11/16 Pantoprazole Sodium [Protonix] 20 mg PO DAILY 07/11/16 Insulin Regular, Human [Novolin R] 25 unit SC BID 07/24/16 Allopurinol [Zyloprim] 150 mg PO DAILYCM #15 tab 08/27/16 Warfarin [Coumadin] 2.5 mg PO DAILY 10/06/16 Cholecalciferol (VIT D3) [Vitamin D3] 1,000 unit PO DAILY 10/26/16 Sertraline HCl [Zoloft] 25 mg PO DAILY 01/10/18 Iron Polysaccharide Complex [Ferrex 150] 150 mg PO QODAY 02/04/18 insulin NPH isophane U-100 human 100 unit/mL subcutaneous suspension 25 unit SC BID ml 03/08/18 metoprolol tartrate 25 mg tablet 25 mg PO BID #180 tab 10/24/18 Famotidine 20 mg PO DAILY 02/06/19 isosorbide mononitrate ER 30 mg tablet,extended release 24 hr 30 mg PO DAILY #90 tab 05/04/19 levETIRAcetam tablet [Keppra tablet] 250 mg PO BID 09/08/19 Guaifenesin [Mucinex] 1,200 mg PO BID #10 tab 09/10/19 levoFLOXacin tablet [Levaquin tablet] 500 mg PO QODAY #3 tab 09/10/19 Following Prescrptions Were Given to Patient: levoFLOXacin tablet [Levaquin tablet] 500 mg PO QODAY #3 tab Transmission Status: Pending to [id number] Guaifenesin [Mucinex] 1,200 mg PO BID #10 tab Transmission Status: Pending to [id number] Other Amb Orders: Basic Metabolic Profile (BMP) Time Frame: 1 Week, Facility: [facility], Location: Laboratory Prothrombin Time w/INR Time Frame: 1 Week, Facility: [facility], Location: Laboratory Primary Care Physician: Romaine Velazquez MD [Primary Care Provider] - Within 1 Week Please Follow Up With: Dang Dyer PA When: 11/13/19 Please Follow Up With: Rebel Andersen - nephrology When: 1-2 months Please Follow Up With: Josh Cline DO - pulmonology When: 1-2 months Disposition: Home Patient Condition:: Fair Medical Necessity - Tobacco Use Smoking Status: Former smoker Meaningful Use Info Meaningful Use Diagnoses (Choose all that apply): None applicable Code Visit Inpatient E&M: 90501 Disch Hosp
--- NOTE | 2019-09-10 13:29 | PN_ITS ---
Patient Problems: Active and Suspected Problems (Last Reviewed 10/24/18 @ 14:45 by Christian Shook MD) Acute respiratory failure with hypoxia (Acute) Right lower lobe pneumonia (Acute) Lymphedema (Acute) - Physical Exam General: Alert, Oriented x3, Cooperative, No apparent distress, - - Morbidly obese HEENT: Atraumatic, PERRLA, EOMI, Normocephalic, - - No scleral icterus or injection Oral: Moist Mucosa, No Gingival or Mucosal Lesions/ Ulcerations Neck: Supple, No JVD, No Nodes, Trachea Midline Lungs: No rhonchi, No wheeze, No rales, Diminished Cardiovascular: Regular rate, Regular Rhythm, Normal S1, Normal S2, No murmurs, No rub noted, No Gallop Abdomen: Bowel Sounds Present, Soft, Non Tender, Non-Distended, Obese Extremities: No clubbing, No cyanosis, Capillary Refill Less than 3 Seconds, Edema Skin: No rashes, No breakdown Musculoskeletal: No Tenderness to Palpation of Joints or Extremities Lymphatic: No Cervical, Supraclavicular, or Inguinal Adenopathy Neurological: Cranial nerves II-XII grossly intact, Neuro grossly intact, Motor Exam 5/5 strength throughout Psych/Mental Status: Alert and oriented to time, place, person, mood and affect Vital Signs Temp Pulse Resp BP Pulse Ox 36.4 C L 62 16 122/68 H 95 09/10/19 11:15 09/10/19 11:15 09/10/19 11:15 09/10/19 11:15 09/10/19 13:14 Oxygen Flow Rate (L/min) [ 2 AMBULATION with Oxygen] Oxygen Flow Rate (L/min) 2 Oxygen Delivery Method Room Air Weight: 125.6 kg Body Mass Index (BMI) 47.0 Finger Stick Blood Glucose 227 Intake and Output for Last 24 Hours 09/08/19 09/09/19 09/10/19 23:59 23:59 23:59 Intake Total 2329.55 / 2329.55 1030 / 1270 820 / 820 Output Total 3400 / 3400 1125 / 1125 450 / 450 Balance -1070.45 / -1070.45 -95 / 145 370 / 370 Microbiology Past 72 Hours 09/08/19 00:05 Blood Culture - Preliminary Blood Culture (Wb) - Right Hand No growth in 48 hours. 09/08/19 00:05 Blood Culture - Preliminary Blood Culture (Wb) - Anticubital Right No growth in 48 hours. 09/08/19 08:49 Respiratory Panel (PCR) - Final Mucosa - Nasopharyngeal 09/08/19 04:15 Legionella Antigen - Final Urine Catheter - [place] 09/08/19 04:15 Streptococcus pneumoniae Antigen (M - Final Urine Catheter - [place] Laboratory Tests Past 24 Hrs 09/10/19 09/10/19 09/10/19 05:42 05:42 05:42 WBC 12.8 H RBC 3.45 L Hgb 10.4 L Hct 32.5 L MCV 94.2 H MCH 30.1 MCHC 32.0 RDW Std Deviation 47.4 H RDW Coeff of Yeny 13.8 Plt Count 178 MPV 10.5 Immature Gran % (Auto) 0.900 Neut % (Auto) 76.6 H Lymph % (Auto) 15.[address] [place] % (Auto) 6.0 Eos % (Auto) 1.0 Baso % (Auto) 0.3 Absolute Neuts (auto) 9.8 H Absolute Lymphs (auto) 1.94 Nucleated RBC % 0 PT 30.7 H INR 2.9 Sodium 142 Potassium 4.9 Chloride 113 H Carbon Dioxide 20.0 L Anion Gap 9 BUN 89 H Creatinine 2.53 H Estim Creat Clear Calc 20.93 Est GFR (MDRD) Af Amer 32 L Est GFR (MDRD) Non-Af 26 L BUN/Creatinine Ratio 35.2 H Glucose 102 Calcium 8.7 POC Glucose 09/10/19 09/10/19 09/09/19 11:10 06:48 21:13 POC Glucose 67 L 93 97 09/09/19 17:24 POC Glucose 162 H Medical Necessity - Tobacco Use Smoking Status: Former smoker Assessment/Plan All Active Problems (Last Reviewed 10/24/18 @ 14:45 by Christian Shook MD) Acute respiratory failure with hypoxia (Acute) Right lower lobe pneumonia (Acute) Lymphedema (Acute) Atrial fibrillation with rapid ventricular response (Resolved ~07/11/16) H/O aortic valve replacement (Resolved) H/O coronary artery bypass surgery (Resolved ~02/24/16) Cellulitis (Resolved) Chest pain (Resolved) Congestive heart failure (Resolved) Hypoxemia (Resolved) Moderate calcific aortic stenosis (Resolved) Ulcer of left lower extremity with fat layer exposed (Resolved) Ulcer of right lower leg (Resolved) Wound of right leg (Resolved) RECOMMENDATIONS: 1. Walking oximetry prior to discharge 2. Continue empiric antimicrobials, with plans to complete a 7-day treatment course. 3. Supplemental oxygen if indicated 4. Continue nocturnal CPAP therapy per home regimen. 5. Encourage incentive spirometer use and mobilize patient as tolerated. 6. Follow-up with Dr. Graves as an outpatient IMPRESSIONS: 1. Acute hypoxemic respiratory failure Clinical concern for underlying community acquired pneumonia and potential decompensated heart failure with preserved ejection fraction. Unclear where the patient's history of COPD came from, as the patient has never had pulmonary function studies completed, nor does he utilize any inhalers in his home environment. Patient should complete a 7-day course of antibiotics. Steroids can be weaned over the next 12 to 14 days. Patient does follow with Dr. Graves as an outpatient, so this would be recommended. Patient should have a walking oximetry with supplemental oxygen if indicated. 2. History of ischemic cardiomyopathy status post CABG/aortic valve re placement/paroxysmal atrial fibrillation Cardiology is following. Renal function appears to have stabilized. Would not recommend continuance of Lasix therapy initially. 3. Acute on chronic kidney disease Likely secondary to prerenal etiology in the setting of tenuous hemodynamics. Creatinine appears to have stabilized. Nephrology is following, who was in agreement yesterday to discontinue Lasix. No current indication for renal replacement therapy. 4. History of obstructive sleep apnea Continue nocturnal CPAP therapy per home regimen. 5. Unspecified seizure disorder/obesity/diabetes mellitus/GERD/hypertension/hyperlipidemia Complicates care, management, recovery and prognosis. Continue insulin regimen and sliding scale coverage. Code Visit Inpatient E&M: 88123 Subs Hosp L2
--- NOTE | 2019-09-10 13:45 | CASEMGMT ---
Addendum entered by Nikkie Kwong 09/10/19 14:53: Per [facility], they will not have a tank here until about 1700. gopi Ham RN, and Dick PHILLIPS aware at this time, voice understanding. Manuel PHILLIPS CM Original Note: Per Dick PHILLIPS, pt does qualify for home oxygen at this time. Pt's has oxygen thru [facility] and pt would like to use the same. Order obtained and faxed to [facility] at this time. Call to [facility] to notify of referral and that pt up for discharge today. Per Dick, pt has been independent in the room. Pt declines the need for anything further at this time. Pt can be discharged once tank delivered by [facility]. Manuel PHILLIPS CM
--- NOTE | 2019-09-10 14:05 | PHA.DC.MC ---
Pharmacy Service has performed discharge medication reconciliation and counseling for this patient. 1. LEVOFLOXACIN 500MG PO EVERY OTHER DAY X 3 DOSES 2. GUAIFENESIN 1200MG PO BID X 5 DAYS The patient's discharge medication list was reviewed for discrepancies and discrepancies were resolved. Home Medications Aspirin [Adult Low Dose Aspirin EC] 81 mg PO DAILY 07/11/16 Atorvastatin Calcium [Lipitor] 40 mg PO QHS 07/11/16 Multivitamin [Daily Multiple Vitamin] 1 ea PO DAILY 07/11/16 Pantoprazole Sodium [Protonix] 20 mg PO DAILY 07/11/16 Insulin Regular, Human [Novolin R] 25 unit SC BID 07/24/16 Allopurinol [Zyloprim] 150 mg PO DAILYCM #15 tab 08/27/16 Warfarin [Coumadin] 2.5 mg PO DAILY 10/06/16 Cholecalciferol (VIT D3) [Vitamin D3] 1,000 unit PO DAILY 10/26/16 Sertraline HCl [Zoloft] 25 mg PO DAILY 01/10/18 Iron Polysaccharide Complex [Ferrex 150] 150 mg PO QODAY 02/04/18 insulin NPH isophane U-100 human 100 unit/mL subcutaneous suspension 25 unit SC BID ml 03/08/18 metoprolol tartrate 25 mg tablet 25 mg PO BID #180 tab 10/24/18 Famotidine 20 mg PO DAILY 02/06/19 isosorbide mononitrate ER 30 mg tablet,extended release 24 hr 30 mg PO DAILY #90 tab 05/04/19 levETIRAcetam tablet [Keppra tablet] 250 mg PO BID 09/08/19 Guaifenesin [Mucinex] 1,200 mg PO BID #10 tab 09/10/19 levoFLOXacin tablet [Levaquin tablet] 500 mg PO QODAY #3 tab 09/10/19 The patient was counseled on the following discharge medications and changes in medications for homegoing were reviewed. The Reason for Use, instructions for use, and potential side effects were reviewed for all new medications. The patient's questions regarding all of their medications were answered. The patient was able to verbally demonstrate an understanding of their discharge medications.
[2019-09-10 16:16] LABS: Bedside Glucose 88 mg/dL (70-110)
--- NOTE | 2019-09-11 16:07 | CASEMGMT ---
ALAN WALTER F/U Phone Call LACE: 10 Strata: 3 Discharge date: 09/10/19 Call date: 09/11/19 Call time: [id number] Duration: 2 minutes Admission dx: Acute resp failure, CHF/COPD exac Pt states has been doing 'ok' since discharge but states 'a little sluggish.' Pt states no questions regarding discharge instructions or medications at this time. Pt states has f/u on with PCP and next tuesday with pulmonary. Pt states that he got his oxygen all set up and states no questions regarding this. Pt states no suggestions for [facility] at this time. Pt voices no further questions/concerns/needs at this time. [place] ALAN WALTER
== END 2019-09-10 17:23 | disposition home or self-care (01) | DRG 291 ==
LOC: ED 09-08 00:35 → ICU 09-08 03:28 → PCU 09-09 18:17
PROVIDERS: Internal Medicine; Admitting Provider Internal Medicine; Emergency Provider Emergency Medicine; Family Provider Family Medicine; PCP Family Medicine
DX: I13.0 Hypertensive heart and chronic kidney disease with heart failure and stage 1 through stage 4 chronic kidney disease, or unspecified chronic kidney disease (principal); J96.01 Acute respiratory failure with hypoxia; I50.33 Acute on chronic diastolic (congestive) heart failure; J18.9 Pneumonia, unspecified organism; J44.0 Chronic obstructive pulmonary disease with (acute) lower respiratory infection; N18.4 Chronic kidney disease, stage 4 (severe); J44.1 Chronic obstructive pulmonary disease with (acute) exacerbation; Z68.42 Body mass index [BMI] 45.0-49.9, adult; I48.20 Chronic atrial fibrillation, unspecified; G47.33 Obstructive sleep apnea (adult) (pediatric); E11.21 Type 2 diabetes mellitus with diabetic nephropathy; E11.22 Type 2 diabetes mellitus with diabetic chronic kidney disease; I89.0 Lymphedema, not elsewhere classified; I35.0 Nonrheumatic aortic (valve) stenosis; I44.7 Left bundle-branch block, unspecified; I87.2 Venous insufficiency (chronic) (peripheral); E78.5 Hyperlipidemia, unspecified; I25.10 Atherosclerotic heart disease of native coronary artery without angina pectoris; E66.01 Morbid (severe) obesity due to excess calories; Z95.1 Presence of aortocoronary bypass graft; Z95.3 Presence of xenogenic heart valve; Z66 Do not resuscitate; Z79.4 Long term (current) use of insulin; Z79.01 Long term (current) use of anticoagulants; Z79.82 Long term (current) use of aspirin; Z79.899 Other long term (current) drug therapy; Z87.891 Personal history of nicotine dependence
CPT/HCPCS: 36415; 36600; 71045; 80048; 80053; 80061; 81001; 82803; 82962; 83605; 83735; 83880; 84443; 84484; 85025; 85610; 87040; 87449; 87633; 87641; 93005; 93306; 94640; 94660; 94667; 94668; 99285; J7040; J7050; Q9957; A4216; C8929; J1940

== ENCOUNTER → 2019-09-18 08:54 | Outpatient (CLI) | payer MEDICARE, OTHER, SELFPAY ==
[2019-09-08 02:15] VITALS: BMI 47.0
[2019-09-18 10:57] LABS: Anion Gap 7 (5-15); BUN 77 mg/dL (7-18); BUN/Creat Ratio 31.4 RATIO (10-20); Calcium,Total 8.7 mg/dL (8.5-10.1); Chloride 111 mmol/L (98-107); Creatinine, Serum 2.45 mg/dL (0.70-1.30); EST Glomerular Filtration Rate 27 mL/min (>60); Est Glom Filt Rate - Afr Amer 33 mL/min (>60); Glucose 173 mg/dL (74-106); Sodium Level 139 mmol/L (136-145)
[2019-09-18 11:23] LABS: Albumin, Serum 2.9 g/dL (3.2-5.0); BUN 76 mg/dL (7-18); BUN/Creat Ratio 32.6 RATIO (10-20); Chloride 110 mmol/L (98-107); Creatinine, Serum 2.33 mg/dL (0.70-1.30); EST Glomerular Filtration Rate 29 mL/min (>60); Est Glom Filt Rate - Afr Amer 35 mL/min (>60); Glucose 176 mg/dL (74-106); Phosphorus 3.1 mg/dL (2.5-4.9); Potassium 4.9 mmol/L (3.5-5.1); Sodium Level 137 mmol/L (136-145)
== END ==
PROVIDERS: Family Provider Family Medicine; PCP Family Medicine; Referring Provider Internal Medicine Nephrology; Visit Provider Internal Medicine Nephrology
DX: N18.4 Chronic kidney disease, stage 4 (severe) (principal)
CPT/HCPCS: 36415; 80048; 80069

== ENCOUNTER 2019-09-22 13:08 | Emergency (ER) | payer MEDICARE, OTHER, SELFPAY ==
[2019-09-08 02:15] VITALS: BMI 47.0
[2019-09-22 13:09] VITALS: BP 124/60; PULSE 98; RESP 18; TEMP 36.8; O2SAT 93; BMI 45.6
[2019-09-22 13:24] VITALS: BP 124/60; PULSE 98; RESP 18; TEMP 36.8; O2SAT 93; O2SAT 94
--- NOTE | 2019-09-22 13:41 | EKG12_ITS ---
Test Reason : CP Blood Pressure : / mmHG Vent. Rate : 091 BPM Atrial Rate : 091 BPM P-R Int : 000 ms QRS Dur : 156 ms QT Int : 404 ms P-R-T Axes : 000 -13 142 degrees QTc Int : 496 ms Atrial fibrillation Left bundle branch block Abnormal ECG Confirmed by DON BAIG, JEAN CLAUDE ([id number]), web editor BRENDA CANTRELL ([id number]) on 09/25/2019 11:21:40 AM Referred By: Pepe Au Confirmed By:JEAN CLAUDE OCHOA MD
--- NOTE | 2019-09-22 13:41 | RAD_ITS ---
STUDY: X-RAY CHEST REASON FOR EXAM: Male, 79 years old. Chest pain for 2 days TECHNIQUE: AP COMPARISON: 09/07/2019 FINDINGS: The lungs are clear and expanded. There is no demonstrated pleural abnormality. There is mild cardiac enlargement. Sternal wires and mediastinal surgical clips compatible with prior CABG. There is mild vascular congestion. Normal visualized aortic arch and descending thoracic aorta. Normal visualized thoracic spine. Normal visualized ribs, clavicles, and shoulders. There is no demonstrated abnormality of the visualized soft tissue structures of the upper abdomen. RAD/Chest 1 View (Portable) IMPRESSION: Mild vascular congestion without air space consolidation or sizable effusion. Electronically Signed: Lazaro Teixeira MD ([place]) at 14:27 EDT , Service support ,
--- NOTE | 2019-09-22 13:42 | ED.VISSUMM ---
- ER Visit Summary Date of Service: 09/22/19 Chief Complaint: Shortness of breath History of Present Illness: The patient is a 79 M history of CAD, [place], prior bypass, porcine valve, diabetes, hypertension, renal insufficiency, A. fib on Coumadin. Patient states that he is short of breath. Is been in the hospital around 2 to 3 weeks ago for a pneumonia. He had negative cardiac work-up at that time. He really denies any specific chest pain. No history of DVT or PE. No new calf pain or swelling. No hemoptysis. No pleuritic discomfort. Physical Examination: Older male vital signs are stable on oxygen his pulse is 93% no hypoxia. HEENT exam unremarkable neck nontender no JVD. Lungs few scattered wheezes no rales rhonchi equal symmetrical. Heart regular rate and rhythm rate about 95 no murmur abdomen soft nontender normal bowel sounds no peritoneal signs. Obese extremities moves all 4. Calves nontender without cords. Neurologically is awake and alert with no focal motor deficits. Test Results: He is awake and 1711 hematocrit 33. Chemistries unremarkable BUN 65 creatinine 2.18 which is his baseline chronic renal sufficiency. And gap normal 6. He is on Coumadin INR elevated 3.7 his Coumadin be held and will be rechecked. Troponin normal. EKG sinus rhythm rate of 91 with a left bundle branch block unchanged from a prior recent EKG. Chest x-ray showed vascular congestion otherwise chronic changes. Emergency Department Course and Treatment: Pt with cardiac history complaint of shortness of breath. Cardiac work-up will be pursued along with checking his PT/INR. Repeat exam at 1540 is unchanged. Nurses getting up walking in the hallway and he does well on his oxygen which needs to stay on at home. He stated that he actually walked further ear than he typically does at home. I will have him hold his Coumadin for 2 days to recheck before having restarted. Treatment Plan: Follow-up with primary care physician. Oxygen 20/06 for now. Hold Coumadin and have her rechecked on Tuesday prior to restarting. Disposition: dc Impression: Dyspnea prior to mild CHF Chronic renal insufficiency Supratherapeutic anticoagulation on Coumadin This note was generated with [employer] software. It may contain incorrect words, spelling, and punctuation that were not noted in review of the chart prior to signing ED Disposition - Plan for ED Patient: Referrals: Romaine Velazquez MD [Primary Care Provider] -
[2019-09-22 13:48] VITALS: O2SAT 92
[2019-09-22 13:54] LABS: Absolute Lymphocyte Count 1.52 X10^3/uL (0.83-4.51); Absolute Neutrophil Count 14.8 X10^3/uL (2.0-7.7); Basophil# 0.05 X10^3/uL; Basophil% 0.3 % (0-1); Eosinophil# 0.22 X10^3/uL; Eosinophils% 1.2 % (0-5); Hematocrit 33.5 % (40-54); Lymphocyte # 1.52 X10^3/ul (4.0); Lymphocyte % 8.6 % (19-41); Mean Corp Hgb Conc 32.8 g/dL (32-36); Mean Corpuscular Hgb 31.2 pg (27.0-32.0); Mean Corpuscular Volume 94.9 fL (80-94); Mean Platelet Vol. 10.7 fl (6.2-12.0); Monocyte% 5.1 % (0-10); NRBC Flagged by Analyzer 0 % (0-5); Neutrophil # 14.81 X10^3/uL (2.7-7.7); Neutrophil % 84.2 % (47-70); Platelet Count 187 K/mm3 (150-450); RBC Distribution Width CV 14.6 % (11.6-14.6); Red Blood Count 3.53 M/mm3 (4.6-6.2); White Blood Count 17.6 K/mm3 (4.4-11.0)
[2019-09-22 14:11] LABS: Anion Gap 6 (5-15); BUN 65 mg/dL (7-18); BUN/Creat Ratio 29.8 RATIO (10-20); Calcium,Total 9.3 mg/dL (8.5-10.1); Chloride 111 mmol/L (98-107); Creatinine, Serum 2.18 mg/dL (0.70-1.30); EST Glomerular Filtration Rate 31 mL/min (>60); Est Glom Filt Rate - Afr Amer 38 mL/min (>60); Estimated Creatinine Clearance 24.29 ml/min; Glucose 144 mg/dL (74-106); Potassium 4.9 mmol/L (3.5-5.1); Sodium Level 138 mmol/L (136-145)
[2019-09-22 14:30] LABS: Prothrombin Time (Protime)PT. 36.6 SECONDS (11.7-14.9)
[2019-09-22 14:32] LABS: International Normalized Ratio 3.7
[2019-09-22 15:43] VITALS: BP 117/72; PULSE 86; RESP 20; O2SAT 96
--- NOTE | 2019-09-22 15:47 | ED.DEP ---
ED Disposition - Plan for ED Patient: Disposition: Home or Assisted Living Instructions: CHF, General Referrals: Romaine Velazquez MD [Primary Care Provider] - 3-5 Days Additional Instructions: Hold your Coumadin for the next 2 days. You need to have it rechecked on Tuesday because it is currently too high before you restarted. Where your oxygen for the time being all the time. Follow-up with your doctor this week. Return if feeling worse.
== END 2019-09-22 16:30 | disposition home or self-care (01) ==
PROVIDERS: Emergency Provider Emergency Medicine; Family Provider Family Medicine; PCP Family Medicine
DX: I13.0 Hypertensive heart and chronic kidney disease with heart failure and stage 1 through stage 4 chronic kidney disease, or unspecified chronic kidney disease (principal); I50.9 Heart failure, unspecified; N18.9 Chronic kidney disease, unspecified; E11.22 Type 2 diabetes mellitus with diabetic chronic kidney disease; I25.10 Atherosclerotic heart disease of native coronary artery without angina pectoris; I44.7 Left bundle-branch block, unspecified; I48.91 Unspecified atrial fibrillation; I25.2 Old myocardial infarction; Z95.1 Presence of aortocoronary bypass graft; Z99.81 Dependence on supplemental oxygen; Z79.01 Long term (current) use of anticoagulants; Z79.4 Long term (current) use of insulin; Z79.82 Long term (current) use of aspirin; Z79.899 Other long term (current) drug therapy
CPT/HCPCS: 71045; 80048; 84484; 85025; 85610; 93005; 99284

== ENCOUNTER 2019-09-27 17:51 | Inpatient (IN) | payer MEDICARE, OTHER, SELFPAY ==
[2019-09-27] VITALS (9 sets, daily range): BP systolic 117–162; BP diastolic 61–85; PULSE 91–102; RESP 18–26; TEMP 36.5–37.1; O2SAT 91–98; BMI 45.5; BMI 44.8
--- NOTE | 2019-09-27 18:29 | EKG12_ITS ---
Test Reason : Blood Pressure : / mmHG Vent. Rate : 092 BPM Atrial Rate : 077 BPM P-R Int : 000 ms QRS Dur : 150 ms QT Int : 396 ms P-R-T Axes : 000 -28 142 degrees QTc Int : 489 ms Wide QRS rhythm Left bundle branch block Abnormal ECG Confirmed by SUZETTE BAIG, BEN ([id number]), metropolitan editor BRENDA CANTRELL ([id number]) on 10/01/2019 9:32:59 AM Referred By: Pepe Au Confirmed By:BEN BRADFORD MD
--- NOTE | 2019-09-27 18:29 | RAD_ITS ---
STUDY: X-RAY CHEST REASON FOR EXAM: Male, 79 years old. Chest pain TECHNIQUE: One view of the chest COMPARISON: 09/22/2019. FINDINGS: Cardiac silhouette unremarkable. Cardiomegaly and increased pulmonary vascularity. Aortic knob atherosclerosis. No focal airspace opacities. No pleural effusions. Upper abdomen unremarkable. Osseous structures intact. No pneumothorax. RAD/Chest 1 View (Portable) IMPRESSION: No significant change. Mild pulmonary vascular congestion. Electronically Signed: Hector Garcia, at 19:28 EDT Tel , Service support ,
[2019-09-27 18:47] LABS: Absolute Lymphocyte Count 1.15 X10^3/uL (0.83-4.51); Absolute Neutrophil Count 11.3 X10^3/uL (2.0-7.7); Basophil# 0.04 X10^3/uL; Basophil% 0.3 % (0-1); Eosinophil# 0.26 X10^3/uL; Eosinophils% 1.9 % (0-5); Hematocrit 32.3 % (40-54); Hemoglobin 10.1 g/dL (13.0-16.5); Lymphocyte # 1.15 X10^3/ul (4.0); Lymphocyte % 8.5 % (19-41); Mean Corp Hgb Conc 31.3 g/dL (32-36); Mean Corpuscular Hgb 29.9 pg (27.0-32.0); Mean Corpuscular Volume 95.6 fL (80-94); Mean Platelet Vol. 10.1 fl (6.2-12.0); Monocyte# 0.62 X10^3/uL; Monocyte% 4.6 % (0-10); NRBC Flagged by Analyzer 0 % (0-5); Neutrophil # 11.33 X10^3/uL (2.7-7.7); Neutrophil % 84.2 % (47-70); Platelet Count 200 K/mm3 (150-450); RBC Distribution Width CV 14.7 % (11.6-14.6); RBC Distribution Width SD 50.7 fl (35.1-43.9); Red Blood Count 3.38 M/mm3 (4.6-6.2); White Blood Count 13.5 K/mm3 (4.4-11.0)
[2019-09-27] MEDS: Aspirin 81 MG TAB.CHEW 324 MG PO (18:49)
[2019-09-27 18:55] LABS: International Normalized Ratio 2.8
[2019-09-27 19:07] LABS: Anion Gap 8 (5-15); BUN 67 mg/dL (7-18); BUN/Creat Ratio 30.2 RATIO (10-20); Calcium,Total 9.1 mg/dL (8.5-10.1); Chloride 110 mmol/L (98-107); Creatinine, Serum 2.22 mg/dL (0.70-1.30); EST Glomerular Filtration Rate 31 mL/min (>60); Est Glom Filt Rate - Afr Amer 37 mL/min (>60); Estimated Creatinine Clearance 23.86 ml/min; Glucose 214 mg/dL (74-106); Sodium Level 139 mmol/L (136-145)
--- NOTE | 2019-09-27 19:10 | ED.DCSUM_ITS ---
- ER Visit Summary Date of Service: 09/27/19 Chief Complaint: Shortness of breath History of Present Illness: The patient is a 79 M presenting with shortness of breath. Patient was seen in the ED on Tuesday for similar complaints. He continues to complain of shortness of breath that is worsened with exertion. He has had generalized weakness and decreased appetite. He had pneumonia 2 to 3 weeks ago. He has history of CAD, [place], CHF, diabetes, hypertension, A. fib. He is on Coumadin. He is on home oxygen. Physical Examination: Vitals are stable. Patient is afebrile. Alert no acute distress. HEENT exam is unremarkable. Neck is supple. Lungs are diminished bilaterally. Heart is irregularly irregular Abdomen is soft nontender nondistended. Extremities symmetric edema Skin is warm and dry. No focal neurologic deficit. Remainder of exam is unremarkable. Emergency Department Course and Treatment: EKG is A. fib with left bundle branch block. Chest x-ray shows vascular congestion. CBC shows white count 13.5, hemoglobin 10.1. Chemistries show glucose 214, BUN 67, creatinine 2.22. INR 2.8. Troponin is negative. Lactic acid is normal. BNP 247. Patient was given Lasix IV. Discussed with the hospitalist for admission. Disposition: Admission Impression: CHF exacerbation This note was generated with [employer] dictation software. It may contain incorrect words, spelling, and punctuation that were not noted in review of the chart prior to signing ED Disposition - Plan for ED Patient: Referrals: Romaine Velazquez MD [Primary Care Provider] -
[2019-09-27 20:00] LABS: Lactic Acid 1.3 mmol/L (0.4-2.0)
--- NOTE | 2019-09-27 20:53 | HP.PCM_ITS ---
Problem List (1) Acute exacerbation of CHF (congestive heart failure) Status: Chronic (2) Lymphedema Status: Chronic (3) Chronic atrial fibrillation Status: Chronic Comment: On coumadin, managed by PCP (4) Atherosclerosis of coronary artery bypass graft without angina pectoris Status: Chronic Qualifiers: [place] vs. transplanted heart: [place] heart Qualified Code(s): I25.810 - Atherosclerosis of coronary artery bypass graft(s) without angina pectoris Comment: Redo CABG x 3 SVG-LAD, SVG OM of Cx, SVG- PDA of RCA and aortic valve replacement with #25 Pietro-Sheppard valve. 02/24/2016 CABG x 4 OAKLEY-D1, SVG-Distal LAD, SVG-Lat CX, SVG-RCA 12/15/98 (5) Non-rheumatic aortic stenosis Status: Chronic (6) H/O aortic valve replacement Status: Chronic Comment: aortic valve replacement with #25 Pietro-Sheppard valve. 02/24/2016 (7) H/O coronary artery bypass surgery Status: Chronic Comment: Redo CABG x 3 SVG-LAD, SVG OM of Cx, SVG- PDA of RCA and aortic valve replacement with #25 Pietro-Sheppard valve. 02/24/2016 CABG x 4 OAKLEY-D1, SVG-Distal LAD, SVG-Lat CX, SVG-RCA 12/15/98 (8) Hypertension Status: Chronic Qualifiers: Hypertension type: essential hypertension Qualified Code(s): I10 - Essential (primary) hypertension (9) Left bundle branch block Status: Chronic (10) Localized edema Status: Chronic (11) Venous insufficiency of both lower extremities Status: Chronic (12) Hyperlipemia Status: Chronic Qualifiers: Hyperlipidemia type: pure hypercholesterolemia Qualified Code(s): E78.00 - Pure hypercholesterolemia, unspecified; E78.0 - Pure hypercholesterolemia (13) Chronic renal failure, stage 3 (moderate) Status: Chronic (14) Morbid obesity with BMI of 45.0-49.9, adult Status: Chronic History of Present Illness Date of Admission: 09/27/19 Chief Complaint: shortness of breath The patient is a 79 year old M with a history of systolic dysfunction; CAD status post stent; morbid obesity; obstructive sleep apnea on home oxygen; and mechanical aortic valve replacement who presented to emergency department with shortness of breath that woke him up from his sleep a day before presentation. He reports shortness of breath to the point that he had a near syncopal episode. At home he uses oxygen 2 L and he bleeds it in his CPAP too at night. Further he reports weakness; subjective fever chills; cough. Of note patient was admitted on 09/08/2019 and discharged on 09/10/2019 with acute respiratory failure with hypoxia; right lower lobe pneumonia and lymphedema. Past Medical History Past Medical History (Chronic Problems): Chronic Problems (Last Reviewed 09/28/19 @ 05:44 by Elio Goldsmith MD) Acute exacerbation of CHF (congestive heart failure) (Chronic) Lymphedema (Chronic) Chronic atrial fibrillation (Chronic) On coumadin, managed by PCP Atherosclerosis of coronary artery bypass graft without angina pectoris (Chronic) Redo CABG x 3 SVG-LAD, SVG OM of Cx, SVG- PDA of RCA and aortic valve replacement with #25 Pietro-Sheppard valve. 02/24/2016 CABG x 4 OAKLEY-D1, SVG-Distal LAD, SVG-Lat CX, SVG-RCA 12/15/98 Non-rheumatic aortic stenosis (Chronic) H/O aortic valve replacement (Chronic) aortic valve replacement with #25 Pietro-Sheppard valve. 02/24/2016 H/O coronary artery bypass surgery (Chronic ~02/24/16) Redo CABG x 3 SVG-LAD, SVG OM of Cx, SVG- PDA of RCA and aortic valve replacement with #25 Pietro-Sheppard valve. 02/24/2016 CABG x 4 OAKLEY-D1, SVG-Distal LAD, SVG-Lat CX, SVG-RCA 12/15/98 Hypertension (Chronic) Left bundle branch block (Chronic) Localized edema (Chronic) Venous insufficiency of both lower extremities (Chronic) Hyperlipemia (Chronic) Chronic renal failure, stage 3 (moderate) (Chronic) Morbid obesity with BMI of 45.0-49.9, adult (Chronic) Medical History: Medical History (Last Reviewed 09/28/19 @ 05:44 by Elio Goldsmith MD) Acute on chronic diastolic (congestive) heart failure (Inactive) I50.33 Chronic atrial fibrillation (Chronic) I48.2 On coumadin, managed by PCP Atherosclerosis of coronary artery bypass graft without angina pectoris (Chronic) I25.810 Redo CABG x 3 SVG-LAD, SVG OM of Cx, SVG- PDA of RCA and aortic valve replacement with #25 Pietro-Sheppard valve. 02/24/2016 CABG x 4 OAKLEY-D1, SVG-Distal LAD, SVG-Lat CX, SVG-RCA 12/15/98 Non-rheumatic aortic stenosis (Chronic) I35.0 Hypertension (Chronic) I10 Left bundle branch block (Chronic) I44.7 Localized edema (Chronic) R60.0 Venous insufficiency of both lower extremities (Chronic) I87.2 Hyperlipemia (Chronic) E78.5 Chronic renal failure, stage 3 (moderate) (Chronic) N18.3 Morbid obesity with BMI of 45.0-49.9, adult (Chronic) E66.01, Z68.42 Anemia D64.9 COPD (chronic obstructive pulmonary disease) J44.9 Cholecystitis K81.9 Obstructive sleep apnea G47.33 Ocular migraine G43.109 TIA (transient ischemic attack) G45.9 Type 2 diabetes mellitus without complications E11.9 Allergies Penicillins [PCN] Allergy (Verified 09/27/19 17:54) Swelling Home Medications: Ambulatory Orders Medication Instructions Recorded Aspirin [Adult Low Dose Aspirin EC] 81 mg PO DAILY 07/11/16 Atorvastatin Calcium [Lipitor] 40 mg PO QHS 07/11/16 Multivitamin [Daily Multiple 1 ea PO DAILY 07/11/16 Vitamin] Pantoprazole Sodium [Protonix] 20 mg PO DAILY 07/11/16 Insulin Regular, Human [Novolin R] 25 unit SC BID 07/24/16 Warfarin [Coumadin] 2.5 mg PO DAILY 10/06/16 Cholecalciferol (VIT D3) [Vitamin 1,000 unit PO DAILY 10/26/16 D3] Sertraline HCl [Zoloft] 25 mg PO DAILY 01/10/18 insulin NPH isophane U-100 human 25 unit SC BID ml 03/08/18 100 unit/mL subcutaneous suspension levETIRAcetam tablet [Keppra 500 mg PO BID 09/08/19 tablet] Allopurinol [Zyloprim] 150 mg PO DAILYCM 09/27/19 Furosemide [Lasix] 40 mg PO DAILY 09/27/19 Isosorbide Mononitrate [Isosorbide 30 mg PO DAILY 09/27/19 Mononitrate ER] Metoprolol Tartrate [Lopressor 12.5 mg PO BID 09/27/19 (beta josey)] Surgical History: Surgical History (Last Reviewed 09/28/19 @ 05:44 by Elio Goldsmith MD) H/O aortic valve replacement (Chronic) Z95.2 aortic valve replacement with #25 Pietro-Sheppard valve. 02/24/2016 H/O coronary artery bypass surgery (Chronic) Onset Date: ~02/24/16 Z95.1 Redo CABG x 3 SVG-LAD, SVG OM of Cx, SVG- PDA of RCA and aortic valve replacement with #25 Pietro-Sheppard valve. 02/24/2016 CABG x 4 OAKLEY-D1, SVG-Distal LAD, SVG-Lat CX, SVG-RCA 12/15/98 Hx of cholecystectomy Onset Date: ~01/13/17 Z90.49 Surgical History: cataract, coronary bypass surgery - x 3, - - Aortic valve replacement, bilateral carpal tunnel release, PICC line. Psychiatric History: No pertinent psych hx Lives: With Family Smoking Status: Former smoker Alcohol: Sober - *Family History Maternal Family History: Family History (Last Reviewed 09/28/19 @ 05:44 by Elio Goldsmith MD) Father Myocardial infarction Mother CVA (cerebral vascular accident) Brother CAD (coronary artery disease) Diabetes History Items: Stroke - mother at age 60 from stroke Sibling Family History: Family History (Last Reviewed 09/28/19 @ 05:44 by Elio Goldsmith MD) Father Myocardial infarction Mother CVA (cerebral vascular accident) Brother CAD (coronary artery disease) Diabetes History Items: Seizures - recently diagnosed Review of Systems Constitutional: Reports: Anorexia, Chills, Weakness HEENT: Denies: Head Aches, Sinus Congestion, Sinus Drainage Cardiovascular: Reports: Edema. Denies: Chest Pain, Palpitations Respiratory: Reports: Cough, Shortness of Breath Gastrointestinal: Denies: Abdominal Pain, Nausea, Vomiting Genitourinary: Denies: Dysuria Musculoskeletal: Denies: Joint Pain, Joint Tenderness Skin: Denies: Rash, Wounds Neurological: Denies: Numbness, Tingling, Focal weakness Psychiatric: Denies: Anxiety, Depression, Homicidal Ideations, Suicidal Ideations Hematologic/ Lymphatic: Denies: Easy Bruising, Easy Bleeding VTE Information - Inpt Only VTE Present on Admission: No VTE Mechan Device Prophylaxis: None VTE Pharm Prophylaxis ordered?: No Reason prophylaxis not ordered:: Treatment Not Indicated - On Coumadin for A. fib and aortic mechanical heart valve; continued. - Physical Exam Vitals/I&O's: Vital Signs Temp Pulse Resp BP Pulse Ox 98.4 F 92 25 H 138/71 H 94 09/27/19 20:00 09/27/19 20:00 09/27/19 20:00 09/27/19 20:00 09/27/19 20:00 Oxygen Flow Rate (L/min) 3 Oxygen Delivery Method Nasal Cannula Weight: 124 kg Body Mass Index (BMI) 45.5 Finger Stick Blood Glucose 227 General: Alert, Oriented x3, Cooperative HEENT: Atraumatic, PERRLA, EOMI, Normocephalic Neck: Supple, Trachea Midline Lungs: Rales - Bibasilar, Tachypneic Cardiovascular: Regular rate, Normal S1, Normal S2, No murmurs Abdomen: Bowel Sounds Present, Soft, Non Tender Extremities: Capillary Refill Less than 3 Seconds, Edema - Bilateral lower extremities Skin: No rashes, No breakdown Musculoskeletal: No Tenderness to Palpation of Joints or Extremities Neurological: Cranial nerves II-XII grossly intact Psych/Mental Status: Normal Affect, Appropriate Laboratory Results 09/27/19 18:20: Lactic Acid 1.3 09/27/19 18:35: WBC 13.5 H, RBC 3.38 L, Hgb 10.1 L, Hct 32.3 L, MCV 95.6 H, MCH 29.9, MCHC 31.3 L, RDW Std Deviation 50.7 H, RDW Coeff of Yeny 14.7 H, Plt Count 200, MPV 10.1, Immature Gran % (Auto) 0.500, Neut % (Auto) 84.2 H, Lymph % (Auto) 8.5 L, [place] % (Auto) 4.6, Eos % (Auto) 1.9, Baso % (Auto) 0.3, Absolute Neuts (auto) 11.3 H, Absolute Lymphs (auto) 1.15, Nucleated RBC % 0 09/27/19 18:35: Sodium 139, Potassium 5.0, Chloride 110 H, Carbon Dioxide 21.0, Anion Gap 8, BUN 67 H, Creatinine 2.22 H, Estim Creat Clear Calc 23.86, Est GFR (MDRD) Af Amer 37 L, Est GFR (MDRD) Non-Af 31 L, BUN/Creatinine Ratio 30.2 H, Glucose 214 H, Calcium 9.1, Troponin I < 0.015 09/27/19 18:35: B-Natriuretic Peptide 247.0 H 09/27/19 18:35: PT 30.0 H, INR 2.8 Assessment/Plan All Active Problems (Last Reviewed 09/28/19 @ 05:44 by Elio Goldsmith MD) Cellulitis (Resolved) Chest pain (Resolved) Congestive heart failure (Resolved) Hypoxemia (Resolved) Moderate calcific aortic stenosis (Resolved) Ulcer of left lower extremity with fat layer exposed (Resolved) Ulcer of right lower leg (Resolved) Wound of right leg (Resolved) The patient is a 79 year old M with a history of systolic dysfunction; CAD status post stent; morbid obesity; obstructive sleep apnea on home CPAP; and mechanical aortic valve replacement who presented to emergency department with shortness of breath; and some elevation in his BNP consistent with probable acu te exacerbation of systolic heart failure. 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 Diastolic function was unable to be determined. Chest x-ray showed mild pulmonary vascular congestion; no significant change. Received Lasix 40 mg IV push at the emergency department. We will continue patient on Lasix 40 mg IV twice daily. His potassium is 5.0. Trend BMP. Hold home p.o. Lasix. Diabetes mellitus His glucose on BMP on 09/27/2019 was 214. At 10 PM the same day his Accu-Chek was 130. Would hold home basal and prandial insulin for now. Will put on correction scale insulin. Monitor closely. If blood pressure is stable consider basal and prandial insulin. Chronic atrial fibrillation Metoprolol continued. Patient is unsure of her Coumadin dose. INR is therapeutic. Coumadin 2.5 mg , unclarified dose from home list but to continue at this time. Trend INR. CAD status post CABG Aspirin and Lipitor continued Obstructive sleep apnea CPAP continued DVT prophylaxis Not indicated since patient is on Coumadin and his INR is therapeutic. Coumadin continued. Code Visit Inpatient E&M: 91505 Init Hosp L3
[2019-09-27] MEDS: Furosemide 40 MG/4 ML Vial IV (21:08)
[2019-09-27 23:00] LABS: Bedside Glucose 130 mg/dL (70-110)
--- NOTE | 2019-09-27 23:39 | CPS ---
Pt. using home unit c 2L bleed
[2019-09-28] VITALS (12 sets, daily range): BP systolic 111–137; BP diastolic 41–89; PULSE 61–94; RESP 18–20; TEMP 36.4–37; O2SAT 93–96
--- NOTE | 2019-09-28 00:05 | CPS ---
Pt. has own CPAP machine; 2L bleed
[2019-09-28 05:28] LABS: Absolute Lymphocyte Count 1.82 X10^3/uL (0.83-4.51); Absolute Neutrophil Count 9.4 X10^3/uL (2.0-7.7); Basophil# 0.04 X10^3/uL; Basophil% 0.3 % (0-1); Eosinophil# 0.39 X10^3/uL; Eosinophils% 3.1 % (0-5); Hematocrit 31.4 % (40-54); Hemoglobin 10.2 g/dL (13.0-16.5); Lymphocyte # 1.82 X10^3/ul (4.0); Lymphocyte % 14.7 % (19-41); Mean Corp Hgb Conc 32.5 g/dL (32-36); Mean Corpuscular Volume 95.4 fL (80-94); Mean Platelet Vol. 9.9 fl (6.2-12.0); Monocyte# 0.67 X10^3/uL; Monocyte% 5.4 % (0-10); NRBC Flagged by Analyzer 0 % (0-5); Neutrophil # 9.41 X10^3/uL (2.7-7.7); Platelet Count 195 K/mm3 (150-450); RBC Distribution Width CV 14.6 % (11.6-14.6); RBC Distribution Width SD 50.1 fl (35.1-43.9); Red Blood Count 3.29 M/mm3 (4.6-6.2); White Blood Count 12.4 K/mm3 (4.4-11.0)
[2019-09-28 05:39] LABS: Anion Gap 10 (5-15); BUN 62 mg/dL (7-18); BUN/Creat Ratio 28.1 RATIO (10-20); Calcium,Total 8.7 mg/dL (8.5-10.1); Chloride 111 mmol/L (98-107); Creatinine, Serum 2.21 mg/dL (0.70-1.30); EST Glomerular Filtration Rate 31 mL/min (>60); Est Glom Filt Rate - Afr Amer 37 mL/min (>60); Estimated Creatinine Clearance 23.96 ml/min; Glucose 115 mg/dL (74-106); Potassium 4.8 mmol/L (3.5-5.1); Sodium Level 142 mmol/L (136-145)
[2019-09-28 07:10] LABS: Bedside Glucose 106 mg/dL (70-110)
[2019-09-28] MEDS: Allopurinol 300 MG Tablet 150 MG PO (09:17)
[2019-09-28] MEDS: Multivitamins,Therapeutic Tablet 1 TABLET PO (09:17)
[2019-09-28] MEDS: Aspirin E.C. 81 MG Tablet PO (09:17)
[2019-09-28] MEDS: Insulin NPH Human 100 UNITS/ML PEN 25 UNITS SC ×2 (09:18→21:07)
[2019-09-28] MEDS: Isosorbide Mononitrate 30 MG Tablet PO (09:19)
[2019-09-28] MEDS: Metoprolol Tartrate 25 MG Tablet 12.5 MG PO ×2 (09:19→21:09)
[2019-09-28] MEDS: levETIRAcetam 500 MG Tablet PO ×2 (09:19→21:09)
[2019-09-28] MEDS: Sertraline 50 MG Tablet 25 MG PO (09:20)
[2019-09-28] MEDS: Pantoprazole Sodium 20 MG Tablet PO (09:20)
[2019-09-28] MEDS: Furosemide 40 MG/4 ML Vial IV ×2 (09:21→16:46)
[2019-09-28 09:31] LABS: Bedside Glucose 97 mg/dL (70-110)
--- NOTE | 2019-09-28 11:21 | CASEMGMT ---
Readmission chart review: Pt initially admitted 09/08-09/10/19 for Acute resp failure, CHF/COPD exac, Right lower lobe pna and pt was sent home on 2liters of home oxygen at discharge but declined any further services. Pt then returned to [facility] ED with c/o cough and was discharged home at that time. Pt then returned to [facility] ED on 09/27/19 with c/o SOB and stated recent pna dx and was admitted for CHF exacerbation with a BNP of 247.0 at this time. Pt's BNP on previous admission was 705.2. Pt's WBC has come down to 12.4 since last visit when it was 19.2. Pt states has been taking meds per recommendation and has lost some weight as well. Pt states that his granddaughter cares for him and after explanation of CCN and HHC at this time, pt declines need for either at this time. Pt states that he saw Dr. Velazquez as scheduled and plans to keep appt's with cardio, nephro, and pulm that are scheduled for the near future. Pt voices no further questions/concerns/needs at this time. CM to follow for any further discharge planning/needs. SStkarina PHILLIPS CM
[2019-09-28 11:46] LABS: Bedside Glucose 183 mg/dL (70-110)
[2019-09-28] MEDS: Insulin Lispro 100 UNIT/ML INSULN.PEN SC ×2 (11:46→21:07)
--- NOTE | 2019-09-28 12:39 | PN_ITS ---
- Physical Exam Vitals/I&O's: Vital Signs Temp Pulse Resp BP Pulse Ox 97.6 F L 70 20 H 113/57 L 96 09/28/19 06:55 09/28/19 09:19 09/28/19 06:55 09/28/19 06:55 09/28/19 07:40 Oxygen Flow Rate (L/min) 2 Oxygen Delivery Method Nasal Cannula Weight: 266 lb 8.622 oz Body Mass Index (BMI) 44.8 Finger Stick Blood Glucose 227 Intake and Output for Last 24 Hours 09/26/19 09/27/19 09/28/19 23:59 23:59 23:59 Intake Total 240 / 240 Output Total 275 / 275 Balance -35 / -35 General: Alert, Oriented x3, Cooperative HEENT: Atraumatic, PERRLA, EOMI, Normocephalic Neck: Supple, No JVD, Negative Carotid Bruits Lungs: No rales - BL bases, Diminished Cardiovascular: Regular rate, No murmurs Abdomen: Bowel Sounds Present, Soft, Non Tender Extremities: No edema, Capillary Refill Less than 3 Seconds Skin: No rashes, No breakdown Musculoskeletal: No Tenderness to Palpation of Joints or Extremities Neurological: Cranial nerves II-XII grossly intact Psych/Mental Status: Normal Affect, Appropriate, Alert and oriented to time, place, person, mood and affect Laboratory Results 09/27/19 18:20: Lactic Acid 1.3 09/27/19 18:35: WBC 13.5 H, RBC 3.38 L, Hgb 10.1 L, Hct 32.3 L, MCV 95.6 H, MCH 29.9, MCHC 31.3 L, RDW Std Deviation 50.7 H, RDW Coeff of Yeny 14.7 H, Plt Count 200, MPV 10.1, Immature Gran % (Auto) 0.500, Neut % (Auto) 84.2 H, Lymph % (Auto) 8.5 L, [place] % (Auto) 4.6, Eos % (Auto) 1.9, Baso % (Auto) 0.3, Absolute Neuts (auto) 11.3 H, Absolute Lymphs (auto) 1.15, Nucleated RBC % 0 09/27/19 18:35: Sodium 139, Potassium 5.0, Chloride 110 H, Carbon Dioxide 21.0, Anion Gap 8, BUN 67 H, Creatinine 2.22 H, Estim Creat Clear Calc 23.86, Est GFR (MDRD) Af Amer 37 L, Est GFR (MDRD) Non-Af 31 L, BUN/Creatinine Ratio 30.2 H, Glucose 214 H, Calcium 9.1, Troponin I < 0.015 09/27/19 18:35: B-Natriuretic Peptide 247.0 H 09/27/19 18:35: PT 30.0 H, INR 2.8 09/27/19 22:45: POC Glucose 130 H 09/28/19 05:05: WBC 12.4 H, RBC 3.29 L, Hgb 10.2 L, Hct 31.4 L, MCV 95.4 H, MCH 31.0, MCHC 32.5, RDW Std Deviation 50.1 H, RDW Coeff of Yeny 14.6, Plt Count 195, MPV 9.9, Immature Gran % (Auto) 0.500, Neut % (Auto) 76.0 H, Lymph % (Auto) 14.7 L, [place] % (Auto) 5.4, Eos % (Auto) 3.1, Baso % (Auto) 0.3, Absolute Neuts (auto) 9.4 H, Absolute Lymphs (auto) 1.82, Nucleated RBC % 0 09/28/19 05:05: Sodium 142, Potassium 4.8, Chloride 111 H, Carbon Dioxide 21.0, Anion Gap 10, BUN 62 H, Creatinine 2.21 H, Estim Creat Clear Calc 23.96, Est GFR (MDRD) Af Amer 37 L, Est GFR (MDRD) Non-Af 31 L, BUN/Creatinine Ratio 28.1 H, Glucose 115 H, Calcium 8.7 09/28/19 07:03: POC Glucose 106 09/28/19 09:15: POC Glucose 97 09/28/19 11:44: POC Glucose 183 H Current Medications Acetaminophen (Tylenol) 650 mg PO Q6H PRN PRN PRN Reason: Pain Score 1-3/Temp > 100.7 F [facility] Admin: 09/28/19 09:17 Dose: 150 mg Documented by: [facility]cotrin) [facility] Last Admin: 09/28/19 09:17 Dose: 81 mg Documented by: Atorvastatin Calcium (Lipitor) 40 mg PO QHS [facility] Cholecalciferol (Vitamin D) 1,000 unit PO DAILY [facility] Last Admin: 09/28/19 09:20 Dose: 1,000 unit Documented by: Dextrose (D50w Syringe) 0 gm IV X1 PRN; Protocol PRN Reason: Hypoglycemia Furosemide (Lasix) 40 mg IV BIDLX [facility] Last Admin: 09/28/19 09:21 Dose: 40 mg Documented by: Glucagon () 1 mg IM .X1 PRN PRN Reason: Hypoglycemia Sodium Chloride () 250 mls @ 15 mls/hr IV .[id number] PRN PRN Reason: Saline Flush Insulin Human Lispro (Humalog Kwikpen ([facility])) 0 unit SC ACHS [facility]; Protocol Last Admin: 09/28/19 11:46 Dose: 1 u Documented by: Insulin Human NPH (Humulin N (Bk)) 25 units SC BID [facility] Last Admin: 09/28/19 09:18 Dose: 25 u Documented by: Isosorbide Mononitrate (Imdur) 30 mg PO DAILY [facility] Last Admin: 09/28/19 09:19 Dose: 30 mg Documented by: Levetiracetam (Keppra Tablet) 500 mg PO BID [facility] Last Admin: 09/28/19 09:19 Dose: 500 mg Documented by: Metoprolol Tartrate (Lopressor (Beta Karyn)) 12.5 mg PO BID [facility] Last Admin: 09/28/19 09:19 Dose: 12.5 mg Documented by: Multivitamins (Multivitamin) [facility] Last Admin: 09/28/19 09:17 Dose: 1 tablet Documented by: Ondansetron HCl (Zofran) 4 mg IV Q8H PRN PRN PRN Reason: NAUSEA/VOMITING Pantoprazole Sodium (Protonix) 20 mg PO DAILY [facility] Last Admin: 09/28/19 09:20 Dose: 20 mg Documented by: Sertraline HCl (Zoloft) 25 mg PO DAILY [facility] Last Admin: 09/28/19 09:20 Dose: 25 mg Documented by: Sodium Chloride () 10 - 40 ml IV UD PRN PRN Reason: SALINE FLUSH Warfarin Sodium (Coumadin (Pbkc)) 2.5 mg PO DAILY@1700 [facility] Medical Necessity - Tobacco Use Smoking Status: Former smoker Assessment/Plan All Active Problems (Last Reviewed 09/28/19 @ 05:44 by Elio Goldsmith MD) Cellulitis (Resolved) Chest pain (Resolved) Congestive heart failure (Resolved) Hypoxemia (Resolved) Moderate calcific aortic stenosis (Resolved) Ulcer of left lower extremity with fat layer exposed (Resolved) Ulcer of right lower leg (Resolved) Wound of right leg (Resolved) 1. Acute on chronic CHF exacerbation -mild improvement, continue Lasix, bilateral rales in the bases, minimal lower extremity edema, chest x-ray consistent with CHF. BNP elevated. Recent echocardiogram, defer repeat. EF is 45 to 50%, left atrium with moderate enlargement, anteroseptal hypokinesis. Troponin negative. Renal function stable. 2. Leukocytosis - 2/2 recent steroid taper. Doubt infection. Recently hospitalized for pna. 3. Chronic Afib - coumadin, metoprolol, rate stable 4. Aortic stenosis s/p porcine valve replacement 5. CAD with prior CABGx5, hx LBBB - trop neg. continue metoprolol,. imdur, aspirin, statin. 6. HTN - stable 7. HLD - statin 8. 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 Chronic venous stasis, hx lymphedema - minimal LE edema. 10. COPD with chronic hypoxic respiratory failure - baseline 2lpm 11. AUTUMN - CPAP qhs 12. Seizure disorder - keppra DVT ppx: heparin DC planning: continue lasix, likely home no needs tomorrow. obtain ptot evals. This patient was seen by Niles Hector PA-C under the supervision of Doctor Brunson.
--- NOTE | 2019-09-28 15:38 | CHAPLAIN ---
Type of Pastoral Visit _x__ Initial Visit ___ Follow-up Visit ___ On-call Visit ___ General Patient Visit ___ Spiritual Assessment ___ Family Conference ___ Bereavement ___ Rapid Response ___ Code Blue ___ Other (describe below) Pastoral Care Referral From _x__ Patient ___ Family ___ Nurse ___ Physician ___ Actuarial Manager ___ Box Toe Buffer ___ Other (describe below) Sacrament/Intervention _x__ Active listening ___ Anointing ___ Taoist ___ Bereavement ___ Communion ___ Cora exploration ___ _x__ Life review ___ Prayer ___ Reconciliation ___ Sacrament of Sick ___ Supportive presence ___ Wedding ___ Other (describe below) Pastoral Comments
[2019-09-28] MEDS: metOLazone 5 MG Tablet PO (16:45)
[2019-09-28 16:55] LABS: Bedside Glucose 132 mg/dL (70-110)
[2019-09-28] MEDS: Atorvastatin Calcium 40 MG Tablet PO (21:09)
[2019-09-28 23:06] LABS: Bedside Glucose 161 mg/dL (70-110)
[2019-09-29] VITALS (7 sets, daily range): BP systolic 107–123; BP diastolic 68–75; PULSE 62–94; RESP 18–20; TEMP 36.5–36.7; O2SAT 88–95
--- NOTE | 2019-09-29 05:05 | RAD_ITS ---
STUDY: X-RAY CHEST REASON FOR EXAM: Male, 79 years old. Acute exacerbation of heart failure, shortness of breath TECHNIQUE: PA and lateral views of the chest. COMPARISON: 09/27/2019. 09/22/2019. 10/26/2016. FINDINGS: There are superimposed monitor leads. Stable mild elevation of the right hemidiaphragm. Mild compression of right basilar parenchyma, no air-fluid levels. There is no demonstrated pleural abnormality. Sternal cerclage wires and vascular clips are present from a prior sternotomy and coronary artery bypass graft procedure (CABG). Medical heart Normal mediastinum and baudilio. Normal visualized pulmonary arteries. There is atherosclerotic calcification of the aortic arch with tortuosity. There are diffuse degenerative changes of the visualized thoracic spine. There is degenerative osteoarthritis of the bilateral shoulders. There is no demonstrated abnormality of the visualized soft tissue structures of the upper abdomen. RAD/Chest PA and Lateral IMPRESSION: Cardiomegaly with postsurgical changes, atherosclerosis and degenerative changes appear stable. Suspect compression of right basilar parenchyma, no air bronchograms to suggest an infiltrate detected. With persistence of symptoms follow-up is recommended. No pulmonary edema, congestive heart failure or confluent pneumonia. Electronically Signed: Micki Whitehead MD at 5:37 EDT , Service support ,
[2019-09-29 05:53] LABS: International Normalized Ratio 3.4; Prothrombin Time (Protime)PT. 34.2 SECONDS (11.7-14.9)
[2019-09-29 06:13] LABS: Anion Gap 9 (5-15); BUN 72 mg/dL (7-18); BUN/Creat Ratio 30.1 RATIO (10-20); Calcium,Total 9.1 mg/dL (8.5-10.1); Chloride 107 mmol/L (98-107); Creatinine, Serum 2.39 mg/dL (0.70-1.30); EST Glomerular Filtration Rate 28 mL/min (>60); Est Glom Filt Rate - Afr Amer 34 mL/min (>60); Estimated Creatinine Clearance 22.16 ml/min; Glucose 114 mg/dL (74-106); Potassium 5.1 mmol/L (3.5-5.1); Sodium Level 138 mmol/L (136-145)
[2019-09-29 06:50] LABS: Bedside Glucose 110 mg/dL (70-110)
--- NOTE | 2019-09-29 08:00 | CPS ---
pt increased to 3 lpm....92%. Nurse aware of change
[2019-09-29] MEDS: Multivitamins,Therapeutic Tablet 1 TABLET PO (09:05)
[2019-09-29] MEDS: Allopurinol 300 MG Tablet 150 MG PO (09:05)
[2019-09-29] MEDS: Aspirin E.C. 81 MG Tablet PO (09:05)
[2019-09-29] MEDS: Insulin NPH Human 100 UNITS/ML PEN 25 UNITS SC (09:06)
[2019-09-29] MEDS: levETIRAcetam 500 MG Tablet PO (09:06)
[2019-09-29] MEDS: Isosorbide Mononitrate 30 MG Tablet PO (09:06)
[2019-09-29] MEDS: Furosemide 40 MG/4 ML Vial IV (09:07)
[2019-09-29] MEDS: Metoprolol Tartrate 25 MG Tablet 12.5 MG PO (09:07)
[2019-09-29] MEDS: Pantoprazole Sodium 20 MG Tablet PO (09:07)
[2019-09-29] MEDS: Sertraline 50 MG Tablet 25 MG PO (09:07)
[2019-09-29] MEDS: 0.9% Saline Lock 10 ML Syringe IV (09:08)
[2019-09-29] MEDS: Insulin Lispro 100 UNIT/ML INSULN.PEN SC (11:27)
--- NOTE | 2019-09-29 11:41 | DCINST_ITS ---
You will use the following diet at home:: Calorie/Carbohydrate Controlled (specify 1200, 1400, etc) - 1800 jade Your food should be the consistency of: Regular Your liquids should be the consistency of: Regular/Thin Discharge Activity: Return to Normal Activity Weight Bearing Status: Full weight bearing Additional Instructions: get INR checked this week Allergies/Adverse Reactions: Allergies Penicillins [PCN] Allergy (Verified 09/27/19 17:54) Swelling Medications to take at Discharge Aspirin [Adult Low Dose Aspirin EC] 81 mg PO DAILY 07/11/16 Atorvastatin Calcium [Lipitor] 40 mg PO QHS 07/11/16 Multivitamin [Daily Multiple Vitamin] 1 ea PO DAILY 07/11/16 Pantoprazole Sodium [Protonix] 20 mg PO DAILY 07/11/16 Insulin Regular, Human [Novolin R] 25 unit SC BID 07/24/16 Warfarin [Coumadin] 2.5 mg PO DAILY 10/06/16 Cholecalciferol (VIT D3) [Vitamin D3] 1,000 unit PO DAILY 10/26/16 Sertraline HCl [Zoloft] 25 mg PO DAILY 01/10/18 insulin NPH isophane U-100 human 100 unit/mL subcutaneous suspension 25 unit SC BID ml 03/08/18 levETIRAcetam tablet [Keppra tablet] 500 mg PO BID 09/08/19 Allopurinol [Zyloprim] 150 mg PO DAILYCM 09/27/19 Isosorbide Mononitrate [Isosorbide Mononitrate ER] 30 mg PO DAILY 09/27/19 Metoprolol Tartrate [Lopressor (beta josey)] 12.5 mg PO BID 09/27/19 Furosemide [Lasix] 40 mg PO BID #60 tab 09/29/19 The following prescriptions were given: Furosemide [Lasix] 40 mg PO BID #60 tab Transmission Status: Pending to [id number] Primary Care Physician: Romaine Velazquez MD [Primary Care Provider] - Test Results: Test results from this visit will be discussed in further detail at your follow- up appointment, if applicable. Please Follow Up With: Romaine Velazquez Please Follow Up With: Christian Shook MD
[2019-09-29 12:35] LABS: Bedside Glucose 155 mg/dL (70-110)
--- NOTE | 2019-09-29 15:37 | PCM.DC.SUM ---
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 02/24/2016 CABG x 4 OAKLEY-D1, SVG-Distal LAD, SVG-Lat CX, SVG-RCA 12/15/98 Non-rheumatic aortic stenosis (Chronic) H/O aortic valve replacement (Chronic) aortic valve replacement with #25 Pietro-Sheppard valve. 02/24/2016 H/O coronary artery bypass surgery (Chronic ~02/24/16) Redo CABG x 3 SVG-LAD, SVG OM of Cx, SVG- PDA of RCA and aortic valve replacement with #25 Pietro-Sheppard valve. 02/24/2016 CABG x 4 OAKLEY-D1, SVG-Distal LAD, SVG-Lat CX, SVG-RCA 12/15/98 Hypertension (Chronic) Left bundle branch block (Chronic) Localized edema (Chronic) Venous insufficiency of both lower extremities (Chronic) Hyperlipemia (Chronic) Chronic renal failure, stage 3 (moderate) (Chronic) Morbid obesity with BMI of 45.0-49.9, adult (Chronic) Hospital Course and Treatment Imaging Results: RAD/Chest 1 View (Portable) IMPRESSION: No significant change. Mild pulmonary vascular congestion. RAD/Chest PA and Lateral IMPRESSION: Cardiomegaly with postsurgical changes, atherosclerosis and degenerative changes appear stable. Suspect compression of right basilar parenchyma, no air bronchograms to suggest an infiltrate detected. With persistence of symptoms follow-up is recommended. No pulmonary edema, congestive heart failure or confluent pneumonia. Operations: None Procedures: None Summary of Care Provided: Hospital Course: The patient is a 79 year old M with past medical history of diastolic congestive heart failure, CAD with prior CABG x5, chronic atrial fibrillation and aortic stenosis status post bioprosthetic aortic valve replacement, who presented to the emergency room with complaints of increased shortness of breath. The patient had been admitted to the hospital in the past month was treated for pneumonia and discharged on steroids. He presented to the emergency room with chest x-ray demonstrating congestive heart failure, elevated BNP, leukocytosis felt secondary to recent steroid use, and was felt to be an acute diastolic congestive heart failure exacerbation. He had had a recent echo that demonstrated EF 45-50%. He was placed on IV lasix. He had improvement in his SOB and was able to maintain adequate oxygenation on 3lpm of O2, he already has o2 set up at home as well as CPAP nightly. He had a repeat CXR that showed no CHF. His home o2 dose was increased to 40 PO BID. His potassium was stable despite the increased lasix and no additional supplementation was needed. He will need his BMP and INR checked at follow up. He needs follow up with his PCP in 1-2 weeks. He was discharged home in stable condition. Despite a hx of lymphedema he had no appreciable LE edema. This patient was seen by Niles Hector PA-C under the supervision of Doctor Boy. [] - Physical Exam Vitals/I&O's: Vital Signs Temp Pulse Resp BP Pulse Ox 97.7 F L 94 20 H 107/68 95 09/29/19 09:01 09/29/19 10:58 09/29/19 09:01 09/29/19 09:01 09/29/19 09:01 Oxygen Flow Rate (L/min) 3 Oxygen Delivery Method Nasal Cannula Weight: 265 lb 3.457 oz Body Mass Index (BMI) 44.8 Finger Stick Blood Glucose 227 Intake and Output for Last 24 Hours 09/27/19 09/28/19 09/29/19 23:59 23:59 23:59 Intake Total 1120 / 1120 340 / 340 Output Total 1525 / 1525 950 / 950 Balance -405 / -405 -610 / -610 General: Alert, Oriented x3, Cooperative HEENT: Atraumatic, PERRLA, EOMI, Normocephalic Neck: Supple, No JVD, Negative Carotid Bruits Lungs: Normal air movement, No rales - right base only Cardiovascular: Regular rate, No murmurs Abdomen: Bowel Sounds Present, Soft, Non Tender Extremities: No edema, Capillary Refill Less than 3 Seconds, - - skin darkening c/w chronic venous stasis Skin: No rashes, No breakdown Musculoskeletal: No Tenderness to Palpation of Joints or Extremities Neurological: Cranial nerves II-XII grossly intact Psych/Mental Status: Normal Affect, Appropriate, Alert and oriented to time, place, person, mood and affect Laboratory Results 09/28/19 16:43: POC Glucose 132 H 09/28/19 21:02: POC Glucose 161 H 09/29/19 05:19: PT 34.2 H, INR 3.4 09/29/19 05:19: Sodium 138, Potassium 5.1, Chloride 107, Carbon Dioxide 22.0, Anion Gap 9, BUN 72 H, Creatinine 2.39 H, Estim Creat Clear Calc 22.16, Est GFR (MDRD) Af Amer 34 L, Est GFR (MDRD) Non-Af 28 L, BUN/Creatinine Ratio 30.1 H, Glucose 114 H, Calcium 9.1 09/29/19 06:40: POC Glucose 110 09/29/19 11:25: POC Glucose 155 H Discharge Diet: Low fat/ Low Cholesterol, 2000 mg Sodium Diet Discharge Activity: Return to Normal Activity Weight Bearing Status: Full weight bearing Home Medications: Medications to take at Discharge Aspirin [Adult Low Dose Aspirin EC] 81 mg PO DAILY 07/11/16 Atorvastatin Calcium [Lipitor] 40 mg PO QHS 07/11/16 Multivitamin [Daily Multiple Vitamin] 1 ea PO DAILY 07/11/16 Pantoprazole Sodium [Protonix] 20 mg PO DAILY 07/11/16 Insulin Regular, Human [Novolin R] 25 unit SC BID 07/24/16 Warfarin [Coumadin] 2.5 mg PO DAILY 10/06/16 Cholecalciferol (VIT D3) [Vitamin D3] 1,000 unit PO DAILY 10/26/16 Sertraline HCl [Zoloft] 25 mg PO DAILY 01/10/18 insulin NPH isophane U-100 human 100 unit/mL subcutaneous suspension 25 unit SC BID ml 03/08/18 levETIRAcetam tablet [Keppra tablet] 500 mg PO BID 09/08/19 Allopurinol [Zyloprim] 150 mg PO DAILYCM 09/27/19 Isosorbide Mononitrate [Isosorbide Mononitrate ER] 30 mg PO DAILY 09/27/19 Metoprolol Tartrate [Lopressor (beta josey)] 12.5 mg PO BID 09/27/19 Furosemide [Lasix] 40 mg PO BID #60 tab 09/29/19 Following Prescrptions Were Given to Patient: Furosemide [Lasix] 40 mg PO BID #60 tab Transmission Status: Received by [id number] Primary Care Physician: Romaine Velazquez MD [Primary Care Provider] - Please Follow Up With: Romaine Velazquez Please Follow Up With: Christian Shook MD Please Follow Up With: Gosia Saenz NP-C Disposition: Home Minutes spent on discharge:: 35 Patient Condition:: Stable Medical Necessity - Tobacco Use Smoking Status: Former smoker Meaningful Use Info Meaningful Use Diagnoses (Choose all that apply): CHF - CHF DIONNA/ARB ordered at discharge?: No Reason DIONNA/ARB not ordered?: Worsening renal disease Documented LVEF (%): 50
== END 2019-09-29 12:16 | disposition home or self-care (01) | DRG 291 ==
LOC: ED 18:43 → PCU 21:28
PROVIDERS: Physician Assistant; Admitting Provider Hospitalist; Emergency Provider Emergency Medicine; Family Provider Family Medicine; PCP Family Medicine; Visit Provider Internal Medicine
DX: I13.0 Hypertensive heart and chronic kidney disease with heart failure and stage 1 through stage 4 chronic kidney disease, or unspecified chronic kidney disease (principal); I50.23 Acute on chronic systolic (congestive) heart failure; I48.20 Chronic atrial fibrillation, unspecified; J96.11 Chronic respiratory failure with hypoxia; Z68.41 Body mass index [BMI] 40.0-44.9, adult; I25.810 Atherosclerosis of coronary artery bypass graft(s) without angina pectoris; I25.10 Atherosclerotic heart disease of native coronary artery without angina pectoris; G47.33 Obstructive sleep apnea (adult) (pediatric); E66.01 Morbid (severe) obesity due to excess calories; E78.5 Hyperlipidemia, unspecified; Z95.3 Presence of xenogenic heart valve; G40.909 Epilepsy, unspecified, not intractable, without status epilepticus; J44.9 Chronic obstructive pulmonary disease, unspecified; Z99.81 Dependence on supplemental oxygen; I44.7 Left bundle-branch block, unspecified; I87.2 Venous insufficiency (chronic) (peripheral); T38.0X5A Adverse effect of glucocorticoids and synthetic analogues, initial encounter; D72.829 Elevated white blood cell count, unspecified; Z79.01 Long term (current) use of anticoagulants; Z95.1 Presence of aortocoronary bypass graft; Z79.82 Long term (current) use of aspirin; N18.3 Chronic kidney disease, stage 3 (moderate); E11.22 Type 2 diabetes mellitus with diabetic chronic kidney disease
CPT/HCPCS: 36415; 71045; 71046; 80048; 82962; 83605; 83880; 84484; 85025; 85610; 87040; 93005; 97116; 97162; 97802; 99285; A4216; J1940

== ENCOUNTER → 2019-11-13 15:39 | Outpatient (CLI) | payer MEDICARE, OTHER, SELFPAY ==
[2019-11-13 14:11] VITALS: BMI 45.4
[2019-11-13 16:26] LABS: Absolute Lymphocyte Count 2.14 X10^3/uL (0.83-4.51); Absolute Neutrophil Count 8.8 X10^3/uL (2.0-7.7); Basophil# 0.05 X10^3/uL; Basophil% 0.4 % (0-1); Eosinophil# 0.38 X10^3/uL; Eosinophils% 3.1 % (0-5); Hematocrit 30.1 % (40-54); Hemoglobin 9.1 g/dL (13.0-16.5); Lymphocyte # 2.14 X10^3/ul (4.0); Lymphocyte % 17.6 % (19-41); Mean Corp Hgb Conc 30.2 g/dL (32-36); Mean Corpuscular Volume 99.3 fL (80-94); Mean Platelet Vol. 10.2 fl (6.2-12.0); Monocyte# 0.75 X10^3/uL; Monocyte% 6.2 % (0-10); NRBC Flagged by Analyzer 0 % (0-5); Neutrophil # 8.81 X10^3/uL (2.7-7.7); Neutrophil % 72.3 % (47-70); Platelet Count 175 K/mm3 (150-450); RBC Distribution Width CV 15.3 % (11.6-14.6); RBC Distribution Width SD 55.3 fl (35.1-43.9); Red Blood Count 3.03 M/mm3 (4.6-6.2); White Blood Count 12.2 K/mm3 (4.4-11.0)
[2019-11-13 16:47] LABS: Anion Gap 4 (5-15); BUN 58 mg/dL (7-18); BUN/Creat Ratio 24.5 RATIO (10-20); Calcium,Total 8.5 mg/dL (8.5-10.1); Chloride 110 mmol/L (98-107); Creatinine, Serum 2.37 mg/dL (0.70-1.30); EST Glomerular Filtration Rate 28 mL/min (>60); Est Glom Filt Rate - Afr Amer 34 mL/min (>60); Glucose 121 mg/dL (74-106); Potassium 5.2 mmol/L (3.5-5.1); Sodium Level 140 mmol/L (136-145)
[2019-11-13 16:57] LABS: BNP,B-Type NATRIURETIC PEPTIDE 313.8 pg/mL (0-100)
== END ==
PROVIDERS: Family Provider Family Medicine; PCP Family Medicine; Referring Provider Physician Assistant Medical; Visit Provider Physician Assistant Medical
DX: I50.33 Acute on chronic diastolic (congestive) heart failure (principal); I12.9 Hypertensive chronic kidney disease with stage 1 through stage 4 chronic kidney disease, or unspecified chronic kidney disease; N18.3 Chronic kidney disease, stage 3 (moderate); I25.810 Atherosclerosis of coronary artery bypass graft(s) without angina pectoris; E78.00 Pure hypercholesterolemia, unspecified
CPT/HCPCS: 36415; 80048; 83880; 85025

== ENCOUNTER 2019-11-15 23:13 | Inpatient (IN) | payer MEDICARE, OTHER, SELFPAY ==
[2019-11-13 14:11] VITALS: BMI 45.4
[2019-11-15 23:14] VITALS: BP 152/94; PULSE 91; RESP 18; TEMP 37.8; O2SAT 91; BMI 45.7
[2019-11-15 23:58] VITALS: O2SAT 78
[2019-11-16] VITALS (19 sets, daily range): BP systolic 103–159; BP diastolic 56–87; PULSE 59–86; RESP 16–42; TEMP 36.3–37.4; O2SAT 78–100; BMI 44.9
--- NOTE | 2019-11-16 00:05 | EKG12_ITS ---
Test Reason : SOB Blood Pressure : / mmHG Vent. Rate : 086 BPM Atrial Rate : 074 BPM P-R Int : 000 ms QRS Dur : 146 ms QT Int : 392 ms P-R-T Axes : 000 -10 157 degrees QTc Int : 469 ms Atrial Fibrillation Left bundle branch block Abnormal ECG Confirmed by DON BAIG, JEAN CLAUDE ([id number]), supervising film or videotape editor BRENDA CANTRELL ([id number]) on 11/19/2019 11:36:39 AM Referred By: Dang Dyer Confirmed By:JEAN CLAUDE OCHOA MD
--- NOTE | 2019-11-16 00:05 | RAD_ITS ---
STUDY: X-RAY CHEST REASON FOR EXAM: Male, 79 years old. Shortness of breath TECHNIQUE: AP portable COMPARISON: 09/29/2019 FINDINGS: The patient is status post median sternotomy and CABG. There is mild enlargement of the cardiac silhouette. There is interval increased perihilar and interstitial lung prominence diffusely. There are diffuse degenerative changes of the visualized thoracic spine. There is degenerative osteoarthritis of the bilateral shoulders. There is no demonstrated abnormality of the visualized soft tissue structures of the upper abdomen. RAD/Chest 1 View (Portable) IMPRESSION: Stable cardiac enlargement with interval increased perihilar and interstitial lung opacities likely due to underlying edema. Electronically Signed: Regino Cruz, at 0:53 EST Tel , Service support ,
[2019-11-16 00:37] LABS: Absolute Lymphocyte Count 1.45 X10^3/uL (0.83-4.51); Absolute Neutrophil Count 12.4 X10^3/uL (2.0-7.7); Basophil# 0.04 X10^3/uL; Basophil% 0.3 % (0-1); Hematocrit 28.7 % (40-54); Hemoglobin 9.1 g/dL (13.0-16.5); Lymphocyte # 1.45 X10^3/ul (4.0); Lymphocyte % 9.6 % (19-41); Mean Corp Hgb Conc 31.7 g/dL (32-36); Mean Corpuscular Hgb 31.2 pg (27.0-32.0); Mean Corpuscular Volume 98.3 fL (80-94); Mean Platelet Vol. 10.2 fl (6.2-12.0); Monocyte# 0.86 X10^3/uL; Monocyte% 5.7 % (0-10); NRBC Flagged by Analyzer 0 % (0-5); Neutrophil # 12.36 X10^3/uL (2.7-7.7); Neutrophil % 81.9 % (47-70); Platelet Count 175 K/mm3 (150-450); RBC Distribution Width CV 15.5 % (11.6-14.6); RBC Distribution Width SD 55.2 fl (35.1-43.9); Red Blood Count 2.92 M/mm3 (4.6-6.2); White Blood Count 15.1 K/mm3 (4.4-11.0)
[2019-11-16 00:44] LABS: Prothrombin Time (Protime)PT. 40.2 SECONDS (11.7-14.9)
[2019-11-16 00:47] LABS: International Normalized Ratio 4.1
[2019-11-16 00:54] LABS: Anion Gap 4 (5-15); BUN 58 mg/dL (7-18); BUN/Creat Ratio 26.1 RATIO (10-20); Calcium,Total 9.1 mg/dL (8.5-10.1); Chloride 110 mmol/L (98-107); Creatinine, Serum 2.22 mg/dL (0.70-1.30); EST Glomerular Filtration Rate 31 mL/min (>60); Est Glom Filt Rate - Afr Amer 37 mL/min (>60); Estimated Creatinine Clearance 23.86 ml/min; Glucose 78 mg/dL (74-106); Potassium 5.3 mmol/L (3.5-5.1); Sodium Level 141 mmol/L (136-145)
[2019-11-16 01:07] LABS: BNP,B-Type NATRIURETIC PEPTIDE 809.3 pg/mL (0-100)
--- NOTE | 2019-11-16 01:19 | ED.VIS.GEN ---
History of Present Illness Chief Complaint: Shortness of Breath Informant: Patient, Family Onset: Days Current Severity: Moderate Maximum Severity: Moderate Narrative: Patient has a history of chronic dyspnea and normally wears 3 L of oxygen at home. Daughter states that since he had pneumonia 2 months ago he had chronic cough that recently worsened. He has noted increased shortness of breath especially with any exertion. Patient reports some tightness across his chest. He has not had a fever at home. Patient's his oxygen saturation was initially 91% on 4 L, but just prior to my evaluation was documented in the upper 70s on 4 L. Nursing staff states that he only came up into the 80s on 6 L so he was placed on a nonrebreather mask. - Past Medical History (1) CHF (congestive heart failure) Status: Chronic (2) Atherosclerosis of coronary artery bypass graft without angina pectoris Status: Chronic Comment: Redo CABG x 3 SVG-LAD, SVG OM of Cx, SVG- PDA of RCA and aortic valve replacement with #25 Pietro-Sheppard valve. 02/24/2016 CABG x 4 OAKLEY-D1, SVG-Distal LAD, SVG-Lat CX, SVG-RCA 12/15/98 (3) Chronic atrial fibrillation Status: Chronic Comment: On coumadin, managed by PCP (4) Chronic renal failure, stage 3 (moderate) Status: Chronic (5) H/O aortic valve replacement Status: Chronic Comment: aortic valve replacement with #25 Pietro-Sheppard valve. 02/24/2016 (6) H/O coronary artery bypass surgery Status: Chronic Comment: Redo CABG x 3 SVG-LAD, SVG OM of Cx, SVG- PDA of RCA and aortic valve replacement with #25 Pietro-Sheppard valve. 02/24/2016 CABG x 4 OAKLEY-D1, SVG-Distal LAD, SVG-Lat CX, SVG-RCA 12/15/98 (7) Hyperlipemia Status: Chronic (8) Hypertension Status: Chronic (9) Left bundle branch block Status: Chronic Past Medical History - Allergies and Home Meds Allergies/Adverse Reactions: Allergies Penicillins [PCN] Allergy (Verified 11/15/19 23:16) Swelling Primary Care Physician: Romaine Velazquez MD [Primary Care Provider] - Prior records reviewed: Yes Surgical History: cataract, coronary bypass surgery - x 3, - - Aortic valve replacement, bilateral carpal tunnel release, PICC line. Lives: With Family Smoking Status: Former smoker - Family History Maternal Family History: Family History (Last Reviewed 11/13/19 @ 14:35 by ANIYA North) Father Myocardial infarction Mother CVA (cerebral vascular accident) Brother CAD (coronary artery disease) Diabetes Family History: Reports: Stroke - mother at age 60 from stroke Sibling Family History: Family History (Last Reviewed 11/13/19 @ 14:35 by ANIYA North) Father Myocardial infarction Mother CVA (cerebral vascular accident) Brother CAD (coronary artery disease) Diabetes Family History: Reports: Seizures - recently diagnosed Review of Systems General: Denies: Chills, Fever Eyes: Denies: Visual changes - bilaterally ENT: Denies: Bilateral ear pain Cardiovascular: Reports: Chest pain Respiratory: Reports: Dyspnea, Cough Gastrointestinal: Denies: Abdominal pain, Nausea, Vomiting, Diarrhea Skin: Denies: Rash Neurological: Denies: Headache Allergy: Denies: Uticaria Physical Exam Vital Signs/Narrative: Vital Signs Temp Pulse Resp BP Pulse Ox 11/16/19 00:16 99.4 F H 86 35 H 155/71 H 96 11/16/19 00:04 86 42 H 159/78 H 96 11/15/19 23:58 78 11/15/19 23:14 100.0 F H 91 18 152/94 H 91 Inital Vital Signs reviewed: Yes General: Well nourished, Well developed ENT: Moist mucous membranes Neck: Supple Cardiovascular: Regular rate, Regular rhythm Respiratory: Diminished, - - Tachypnea Abdomen: Soft, Nontender Extremities: Edema - 2+ bilateral lower extremity edema. Skin: Normal color Neurological: Alert, Oriented x3 Psychological: Normal affect Diagnostic/Tx/Re-eval Impressions Chest X-Ray 11/16/19 00:05 IMPRESSION: Stable cardiac enlargement with interval increased perihilar and interstitial lung opacities likely due to underlying edema. Electronically Signed: Regino Cruz, at 0:53 EST Tel , Service support , 11/16/19 00:05 Chest 1 View (Portable) [RAD] Stat Laboratory Results 11/16/19 11/16/19 11/16/19 00:23 00:23 00:23 WBC 15.1 H RBC 2.92 L Hgb 9.1 L Hct 28.7 L MCV 98.3 H MCH 31.2 MCHC 31.7 L RDW Std Deviation 55.2 H RDW Coeff of Yeny 15.5 H Plt Count 175 MPV 10.2 Immature Gran % (Auto) 0.500 Neut % (Auto) 81.9 H Lymph % (Auto) 9.6 L [place] % (Auto) 5.7 Eos % (Auto) 2.0 Baso % (Auto) 0.3 Absolute Neuts (auto) 12.4 H Absolute Lymphs (auto) 1.45 Nucleated RBC % 0 PT 40.2 H INR 4.1 H* Sodium 141 Potassium 5.3 H Chloride 110 H Carbon Dioxide 27.0 Anion Gap 4 L BUN 58 H Creatinine 2.22 H Estim Creat Clear Calc 23.86 Est GFR (MDRD) Af Amer 37 L Est GFR (MDRD) Non-Af 31 L BUN/Creatinine Ratio 26.1 H Glucose 78 Lactic Acid Calcium 9.1 Troponin I < 0.015 B-Natriuretic Peptide 11/16/19 11/16/19 00:23 00:23 WBC RBC Hgb Hct MCV MCH MCHC RDW Std Deviation RDW Coeff of Yeny Plt Count MPV Immature Gran % (Auto) Neut % (Auto) Lymph % (Auto) [place] % (Auto) Eos % (Auto) Baso % (Auto) Absolute Neuts (auto) Absolute Lymphs (auto) Nucleated RBC % PT INR Sodium Potassium Chloride Carbon Dioxide Anion Gap BUN Creatinine Estim Creat Clear Calc Est GFR (MDRD) Af Amer Est GFR (MDRD) Non-Af BUN/Creatinine Ratio Glucose Lactic Acid 1.0 Calcium Troponin I B-Natriuretic Peptide 809.3 H - EKG Initial EKG Interpretation: Sinus Rhythm - Sinus at 86 with left bundle branch block. Appears similar to prior study. - Medical Decision Making Patient's chest x-ray and BNP findings are consistent with CHF exacerbation. Patient was placed on BiPAP and his FiO2 was able to be turned down to 35%. O2 sats are in the low 90s. He is given 40 mg of IV Lasix and will be admitted to the floor. Patient and family have been updated with his test results. ED Disposition - Plan for ED Patient: Disposition: Acute Care Hospital [facility] Diagnosis: CHF (congestive heart failure) Referrals: Romaine Velazquez MD [Primary Care Provider] -
--- NOTE | 2019-11-16 01:23 | HP.PCM_ITS ---
Problem List (1) Acute exacerbation of CHF (congestive heart failure) Status: Chronic (2) CHF (congestive heart failure) Status: Chronic (3) AUTUMN (obstructive sleep apnea) Status: Chronic (4) Acute respiratory failure with hypoxia Status: Acute (5) Lymphedema Status: Chronic (6) Acute on chronic diastolic (congestive) heart failure Status: Acute (7) Chronic atrial fibrillation Status: Chronic Comment: On coumadin, managed by PCP (8) Atherosclerosis of coronary artery bypass graft without angina pectoris Status: Chronic Qualifiers: [place] vs. transplanted heart: [place] heart Qualified Code(s): I25.810 - Atherosclerosis of coronary artery bypass graft(s) without angina pectoris Comment: Redo CABG x 3 SVG-LAD, SVG OM of Cx, SVG- PDA of RCA and aortic valve replacement with #25 Pietro-Sheppard valve. 02/24/2016 CABG x 4 OAKLEY-D1, SVG-Distal LAD, SVG-Lat CX, SVG-RCA 12/15/98 (9) Non-rheumatic aortic stenosis Status: Chronic (10) H/O aortic valve replacement Status: Chronic Comment: aortic valve replacement with #25 Pietro-Sheppard valve. 02/24/2016 (11) H/O coronary artery bypass surgery Status: Chronic Comment: Redo CABG x 3 SVG-LAD, SVG OM of Cx, SVG- PDA of RCA and aortic valve replacement with #25 Pietro-Sheppard valve. 02/24/2016 CABG x 4 OAKLEY-D1, SVG-Distal LAD, SVG-Lat CX, SVG-RCA 12/15/98 (12) Hypertension Status: Chronic Qualifiers: Hypertension type: essential hypertension Qualified Code(s): I10 - Essential (primary) hypertension (13) Left bundle branch block Status: Chronic (14) Localized edema Status: Chronic (15) Venous insufficiency of both lower extremities Status: Chronic (16) Hyperlipemia Status: Chronic Qualifiers: Hyperlipidemia type: pure hypercholesterolemia Qualified Code(s): E78.00 - Pure hypercholesterolemia, unspecified; E78.0 - Pure hypercholesterolemia (17) Chronic renal failure, stage 3 (moderate) Status: Chronic (18) Morbid obesity with BMI of 45.0-49.9, adult Status: Chronic History of Present Illness Date of Admission: 11/16/19 Chief Complaint: SHORTNESS OF BREATH The patient is a 79 year old M with a significant history of heart failure: A. fib with RVR; porcine aortic valve; CAD with CABG; oxygen use who presents at the emergency department with progressively worsening shortness of breath that started a day before presentation. Associated with his symptoms is orthopnea. Patient sleeps with CPAP and denies paroxysmal nocturnal dyspnea. Two months ago he was treated for pneumonia. Ever since his lungs has continued to sound crackles anytime that he was assessed at the doctor's office. After treatment for pneumonia he has continued to have shortness of breath but the symptoms worsened on the day before presentation. Patient is supposed to be on Lasix 40 mg p.o. twice daily but because of kidney dysfunction typically he takes Lasix 40 mg p.o. daily. At home patient routinely uses 3 L. When the squad was bringing him to the hospital on 4 L his oxygen saturation was 91%. At the emergency department on 4 L his oxygen saturation was 78%. His respiratory rate was in the 30s. Patient was placed on rebreather mask and is in his oxygen saturation went into the high 90s. Patient was eventually switched to the BiPAP. Past Medical History Past Medical History (Chronic Problems): Chronic Problems (Last Updated 11/13/19 @ 14:35 by ANIYA North) CHF (congestive heart failure) (Chronic) AUTUMN (obstructive sleep apnea) (Chronic) Acute exacerbation of CHF (congestive heart failure) (Chronic) Lymphedema (Chronic) Chronic atrial fibrillation (Chronic) On coumadin, managed by PCP Atherosclerosis of coronary artery bypass graft without angina pectoris (Chronic) Redo CABG x 3 SVG-LAD, SVG OM of Cx, SVG- PDA of RCA and aortic valve replacement with #25 Pietro-Sheppard valve. 02/24/2016 CABG x 4 OAKLEY-D1, SVG-Distal LAD, SVG-Lat CX, SVG-RCA 12/15/98 Non-rheumatic aortic stenosis (Chronic) H/O aortic valve replacement (Chronic) aortic valve replacement with #25 Pietro-Sheppard valve. 02/24/2016 H/O coronary artery bypass surgery (Chronic ~02/24/16) Redo CABG x 3 SVG-LAD, SVG OM of Cx, SVG- PDA of RCA and aortic valve replacement with #25 Pietro-Sheppard valve. 02/24/2016 CABG x 4 OAKLEY-D1, SVG-Distal LAD, SVG-Lat CX, SVG-RCA 12/15/98 Hypertension (Chronic) Left bundle branch block (Chronic) Localized edema (Chronic) Venous insufficiency of both lower extremities (Chronic) Hyperlipemia (Chronic) Chronic renal failure, stage 3 (moderate) (Chronic) Morbid obesity with BMI of 45.0-49.9, adult (Chronic) Medical History: Medical History (Last Updated 11/13/19 @ 14:35 by ANIYA North) Acute on chronic diastolic (congestive) heart failure (Acute) I50.33 Chronic atrial fibrillation (Chronic) I48.2 On coumadin, managed by PCP Atherosclerosis of coronary artery bypass graft without angina pectoris (Chronic) I25.810 Redo CABG x 3 SVG-LAD, SVG OM of Cx, SVG- PDA of RCA and aortic valve replacement with #25 Pietro-Sheppard valve. 02/24/2016 CABG x 4 OAKLEY-D1, SVG-Distal LAD, SVG-Lat CX, SVG-RCA 12/15/98 Non-rheumatic aortic stenosis (Chronic) I35.0 Hypertension (Chronic) I10 Left bundle branch block (Chronic) I44.7 Localized edema (Chronic) R60.0 Venous insufficiency of both lower extremities (Chronic) I87.2 Hyperlipemia (Chronic) E78.5 Chronic renal failure, stage 3 (moderate) (Chronic) N18.3 Morbid obesity with BMI of 45.0-49.9, adult (Chronic) E66.01, Z68.42 Anemia D64.9 COPD (chronic obstructive pulmonary disease) J44.9 Cholecystitis K81.9 Obstructive sleep apnea G47.33 Ocular migraine G43.109 TIA (transient ischemic attack) G45.9 Type 2 diabetes mellitus without complications E11.9 Allergies Penicillins [PCN] Allergy (Verified 11/15/19 23:16) Swelling Home Medications: Ambulatory Orders Medication Instructions Recorded Aspirin [Adult Low Dose Aspirin EC] 81 mg PO DAILY 07/11/16 Atorvastatin Calcium [Lipitor] 40 mg PO QHS 07/11/16 Multivitamin [Daily Multiple 1 ea PO DAILY 07/11/16 Vitamin] Insulin Regular, Human [Novolin R] 25 unit SC BID 07/24/16 Warfarin [Coumadin] 2.5 mg PO SUMOWEFRSA 10/06/16 Cholecalciferol (VIT D3) [Vitamin 1,000 unit PO DAILY 10/26/16 D3] Sertraline HCl [Zoloft] 25 mg PO DAILY 01/10/18 insulin NPH isoph U-100 human 100 25 unit SC BID ml 03/08/18 unit/mL subcutaneous suspension levETIRAcetam tablet [Keppra 250 mg PO BID 09/08/19 tablet] Allopurinol [Zyloprim] 150 mg PO DAILYCM 09/27/19 Isosorbide Mononitrate [Isosorbide 30 mg PO DAILY 09/27/19 Mononitrate ER] Metoprolol Tartrate [Lopressor 12.5 mg PO BID 09/27/19 (beta josey)] Furosemide [Lasix] 40 mg PO BID #60 tab 09/29/19 famotidine 20 mg tablet 20 mg PO DAILY 11/13/19 losartan 25 mg tablet 25 mg PO DAILY 11/13/19 olanzapine 2.5 mg tablet 2.5 mg PO QHS 11/13/19 Surgical History: Surgical History (Last Reviewed 11/13/19 @ 14:35 by ANIYA North) H/O aortic valve replacement (Chronic) Z95.2 aortic valve replacement with #25 Pietro-Sheppard valve. 02/24/2016 H/O coronary artery bypass surgery (Chronic) Onset Date: ~02/24/16 Z95.1 Redo CABG x 3 SVG-LAD, SVG OM of Cx, SVG- PDA of RCA and aortic valve replacement with #25 Pietro-Sheppard valve. 02/24/2016 CABG x 4 OAKLEY-D1, SVG-Distal LAD, SVG-Lat CX, SVG-RCA 12/15/98 Hx of cholecystectomy Onset Date: ~01/13/17 Z90.49 Surgical History: cataract, coronary bypass surgery - x 3, - - Aortic valve replacement, bilateral carpal tunnel release, PICC line. Psychiatric History: No pertinent psych hx Smoking Status: Former smoker - *Family History Maternal Family History: Family History (Last Reviewed 11/13/19 @ 14:35 by ANIYA North) Father Myocardial infarction Mother CVA (cerebral vascular accident) Brother CAD (coronary artery disease) Diabetes History Items: Stroke - mother at age 60 from stroke Sibling Family History: Family History (Last Reviewed 11/13/19 @ 14:35 by ANIYA North) Father Myocardial infarction Mother CVA (cerebral vascular accident) Brother CAD (coronary artery disease) Diabetes History Items: Seizures - recently diagnosed VTE Information - Inpt Only VTE Present on Admission: No VTE Mechan Device Prophylaxis: None VTE Pharm Prophylaxis ordered?: No Reason prophylaxis not ordered:: Treatment Not Indicated - On home Coumadin for A. fib; continued - Physical Exam Vitals/I&O's: Vital Signs Temp Pulse Resp BP Pulse Ox 99.4 F H 86 35 H 155/71 H 96 11/16/19 00:16 11/16/19 00:16 11/16/19 00:16 11/16/19 00:16 11/16/19 00:16 Oxygen Flow Rate (L/min) 15 Oxygen Delivery Method Non-Rebreather Weight: 124.738 kg Body Mass Index (BMI) 45.7 Finger Stick Blood Glucose 227 General: Alert, Oriented x3, Cooperative HEENT: Atraumatic, PERRLA, EOMI, Normocephalic Neck: Supple, No Nuchal Rigidity, Trachea Midline Lungs: No rhonchi, No wheeze, Rales, Tachypneic, Using Accessory Muscles Cardiovascular: Regular rate, Normal S1, Normal S2, No murmurs Abdomen: Bowel Sounds Present, Soft, Non Tender Extremities: Capillary Refill Less than 3 Seconds, Edema - Left leg more than right leg Skin: No rashes, No breakdown Musculoskeletal: No Tenderness to Palpation of Joints or Extremities Neurological: Cranial nerves II-XII grossly intact Psych/Mental Status: Normal Affect, Appropriate Laboratory Results 11/16/19 00:23: WBC 15.1 H, RBC 2.92 L, Hgb 9.1 L, Hct 28.7 L, MCV 98.3 H, MCH 31.2, MCHC 31.7 L, RDW Std Deviation 55.2 H, RDW Coeff of Yeny 15.5 H, Plt Count 175, MPV 10.2, Immature Gran % (Auto) 0.500, Neut % (Auto) 81.9 H, Lymph % (Auto) 9.6 L, [place] % (Auto) 5.7, Eos % (Auto) 2.0, Baso % (Auto) 0.3, Absolute Neuts (auto) 12.4 H, Absolute Lymphs (auto) 1.45, Nucleated RBC % 0 11/16/19 00:23: PT 40.2 H, INR 4.1 H* 11/16/19 00:23: Sodium 141, Potassium 5.3 H, Chloride 110 H, Carbon Dioxide 27.0, Anion Gap 4 L, BUN 58 H, Creatinine 2.22 H, Estim Creat Clear Calc 23.86, Est GFR (MDRD) Af Amer 37 L, Est GFR (MDRD) Non-Af 31 L, BUN/Creatinine Ratio 26.1 H, Glucose 78, Calcium 9.1, Troponin I < 0.015 11/16/19 00:23: B-Natriuretic Peptide 809.3 H 11/16/19 00:23: Lactic Acid 1.0 Assessment/Plan All Active Problems (Last Updated 11/13/19 @ 14:35 by ANIYA North) Acute respiratory failure with hypoxia (Acute) Acute on chronic diastolic (congestive) heart failure (Acute) Cellulitis (Resolved) Chest pain (Resolved) Congestive heart failure (Resolved) Hypoxemia (Resolved) Moderate calcific aortic stenosis (Resolved) Ulcer of left lower extremity with fat layer exposed (Resolved) Ulcer of right lower leg (Resolved) Wound of right leg (Resolved) The patient is a 79 year old M with a significant history of heart failure: A. fib with RVR; porcine aortic valve; CAD with CABG who presents emergency department with progressively worsening shortness of breath; rales on examination; bilateral leg edema left worse than right and radiographic evidence of pulmonary congestion consistent with acute exacerbation of Heart Failure. Acute exacerbation of systolic heart failure Chest x-ray showed stable cardiac enlargement with interval increase in perihilar and interstitial lung opacities likely due to underlying edema. Chest x-ray was independently reviewed. I agree with radiologist interpretation. Echocardiogram on 09/08/2019 showed EF of 45 to 50%. Diastolic dysfunction was unable to be assessed. It showed anteroseptal hypokinesis. RVSP was unable to be assessed BNP on presentation was 809.3 Place on monitored bed on PCU Weight on admission to the floor; and then daily Strict I&O's Lasix 40 mg IV push in emergency department. Hold home Lasix. Continue diuresis with Lasix 40 mg twice daily. Monitor electrolytes and renal function Trend blood pressure Kerlix roll and naima wrap to bilateral lower extremities. Elevate bilateral lower leg extremities when in bed or sitting. Fluid restriction of 1500 mls daily 2 g cardiac diet Continue BiPAP started at the emergency department. Atrial fibrillation On presentation his INR was supratherapeutic. Trend INR. Adjust Coumadin as necessary. Low blood glucose: On presentation his blood glucose was 72. Serial Accu-Cheks. Obstructive Sleep apnea: On home CPAP. Continue BiPAP in the hospital setting nightly; when patient is eventually weaned of daytime BiPAP. Lymphedema: Lasix as above CKD stage IV: Stable DVT prophylaxis INR is supratherapeutic at this time. Repeat INR and dose Coumadin as necessary. Code Visit Inpatient E&M: 97905 Init Hosp L3
[2019-11-16] MEDS: Furosemide 40 MG/4 ML Vial IV ×3 (02:18→17:30)
[2019-11-16 06:26] LABS: Bedside Glucose 72 mg/dL (70-110)
[2019-11-16 06:49] LABS: Prothrombin Time (Protime)PT. 37.9 SECONDS (11.7-14.9)
[2019-11-16 06:52] LABS: International Normalized Ratio 3.8
[2019-11-16 06:53] LABS: Hematocrit 27.7 % (40-54); Hemoglobin 8.5 g/dL (13.0-16.5); Mean Corp Hgb Conc 30.7 g/dL (32-36); Mean Corpuscular Hgb 30.5 pg (27.0-32.0); Mean Corpuscular Volume 99.3 fL (80-94); Mean Platelet Vol. 10.1 fl (6.2-12.0); Platelet Count 172 K/mm3 (150-450); RBC Distribution Width CV 15.4 % (11.6-14.6); RBC Distribution Width SD 55.1 fl (35.1-43.9); Red Blood Count 2.79 M/mm3 (4.6-6.2)
--- NOTE | 2019-11-16 06:54 | NURSING ---
Critical lab result INR 3.8, given to primary RN Jordan.
[2019-11-16 07:09] LABS: Anion Gap 5 (5-15); BUN 55 mg/dL (7-18); BUN/Creat Ratio 25.7 RATIO (10-20); Calcium,Total 8.6 mg/dL (8.5-10.1); Chloride 110 mmol/L (98-107); Creatinine, Serum 2.14 mg/dL (0.70-1.30); EST Glomerular Filtration Rate 32 mL/min (>60); Est Glom Filt Rate - Afr Amer 39 mL/min (>60); Estimated Creatinine Clearance 24.75 ml/min; Glucose 76 mg/dL (74-106); Potassium 4.8 mmol/L (3.5-5.1); Sodium Level 141 mmol/L (136-145)
[2019-11-16] MEDS: Sertraline 50 MG Tablet 25 MG PO (08:40)
[2019-11-16] MEDS: Allopurinol 300 MG Tablet 150 MG PO (08:41)
[2019-11-16] MEDS: Metoprolol Tartrate 25 MG Tablet 12.5 MG PO ×2 (08:42→22:02)
[2019-11-16] MEDS: Aspirin E.C. 81 MG Tablet PO (08:42)
[2019-11-16] MEDS: Famotidine 20 MG Tablet PO (08:42)
[2019-11-16] MEDS: Losartan Potassium 25 MG Tablet PO (08:43)
[2019-11-16] MEDS: Multivitamins,Therapeutic Tablet 1 TABLET PO (08:44)
[2019-11-16] MEDS: Isosorbide Mononitrate 30 MG Tablet PO (08:44)
--- NOTE | 2019-11-16 10:20 | CASEMGMT ---
RN JOSE ANGEL TECHNICAL SERVICES CONSULTANT CM to room to meet with patient for initial transition planning/care coordination assessment. ALAN WALTER introduced self and role at [facility]. Pt voices understanding and consents to assessment at this time. Pt resting in bed in no distress at this time. Pt is A/O at this time and answers all questions appropriately. Care providers, pharmacy, and demographics verified/updated at this time. PCP: Specialists: Preferred Pharmacy: Insurance: Prescription Benefit: Living Will/HPOA: Pt does not currently have LW/HCPOA and declines info at this time. Pt made aware that he can contact SW as an out-pt and make appt in the future if he decides he would like to talk with someone about this or would like to utilize [facility] social work for advanced directive completion. Given [employer] card with information and contact number. Pt expresses understanding. States does not have LW or HCPOA . Interested in more information but states does not want to talk with SW at this time to complete paperwork. Provided information on advanced directives and given [employer] rac card with number to call if chooses in the future to utilize [facility] social work for advanced directive completion. Educated patient that, if patient so chooses, can come back to [facility] and meet with a SW as an outpatient to complete health care advanced directives. Patient expresses understanding. LNOK: Living Arrangements: Transportation: Pt states drives self and states no transportation concerns at this time. DME: Denies using any DME and denies needs. States has the following DME: Pt states no need for further DME at this time. HHC/SNF: Pt wishes to return home and states has no concerns with going home at time of discharge. Pt states does not smoke or drink ETOH. CM to follow for home oxygen needs and any further discharge planning/needs. Pt voices no further concerns/needs at this time. Advised pt to ask for CM if any further questions/concerns/needs arise. Voices understanding. PLAN: Leti KONG RN, CM
--- NOTE | 2019-11-16 10:20 | CASEMGMT ---
RN JOSE ANGEL TRANSMITTER CHIEF CM to room to meet with patient for initial transition planning/care coordination assessment. ALAN WALTER introduced self and role at [facility]. Pt voices understanding and consents to assessment at this time. Pt resting in bed. Pt is A/O at this time and answers all questions appropriately. Care providers, pharmacy, and demographics verified/updated at this time. Admit Dx: Acute Decompensate Heart Failure PCP: Marcus Specialists: Renal physician from [facility]--doesn't remember his name, Dr Cline/Ivan-pulmonology, Dr Shook--cardiology, Dr Espino--endo Preferred Pharmacy: [facility] Insurance: Friday Prescription Benefit: Yes, [employer] Rx Living Will/HPOA: does not have LW or HCPOA . Interested in more information and would like to talk to SW, but would like his granddaughter present when SW comes to talk with him. ERICA Mart, made aware. LNOK: , granddaughter, Maria Luisa. Has 3 adult children. Living Arrangements: Lives with his and granddaughter, Maria Luisa, lives with them. Lives in ranch home. No steps to enter, but has 2 steps to the kitchen--denies difficulty with steps. Granddaughter helps with both pt and his . Granddaughter assists with medication mgmt/Dr appts and household mgmt tasks. Pt states he is able to bath/dress himself. Needs assist w/donning socks. Pt states they usually go out to eat for meals. Transportation: Granddaughter DME: has the following DME: shower chair, CPAP, States has O2 @ 3 L/M continuously through [facility]--states wears it all the time during the day and at bedtime. Has concentrator and portability. Call placed to [facility] and spoke to Dru. He states current orders for Home O2 is only for 2L/M with activity only. Pt states no need for further DME at this time. HHC/SNF: Hx of [facility] after open heart surgery. No history of HHC. Discussed HHC and CCN with pt. Pt declines both at this time. Pt states he does not think his granddaughter would be agreeable/want either, but states will give CCN rac card to his granddaughter to discuss with her. Pt wishes to return home and states has no concerns with going home at time of discharge. CM to follow for home oxygen needs and any further discharge planning/needs. Pt voices no further concerns/needs at this time. Advised pt to ask for CM if any further questions/concerns/needs arise. Voices understanding. PLAN: Home w/family support and discharge plans in place. Will need Home oxygen ambulatory testing completed prior to discharge. CM to follow for any increasing O2 needs. If pt requires more Oxygen than 2 L/M with activity, will need new script. Pt to have his granddaughter bring in his portable tank from home. Leti BSN RN CM
--- NOTE | 2019-11-16 12:06 | PN_ITS ---
Subjective: Patient seen and examined. He was admitted with a complaint of shortness of breath and is being managed for acute exacerbation of heart failure with reduced ejection fraction. Patient has no complaints this morning. Shortness of breath has improved. He denies any chest pain or palpitations, dizziness, abdominal pain, diarrhea vomiting. Review of systems otherwise negative. Labs and vitals reviewed. She did have a low-grade fever on admission with temperature on admission being 100 Fahrenheit and then going up to 99.4 Fahrenheit. Temperature has been stable since then. WBC was also elevated and is 13 this morning. Vitals/I&O's: Vital Signs Temp Pulse Resp BP Pulse Ox 98.1 F 78 18 103/56 L 94 11/16/19 12:00 11/16/19 12:00 11/16/19 12:00 11/16/19 12:00 11/16/19 12:00 Oxygen Flow Rate (L/min) 4 Oxygen Delivery Method Nasal Cannula Weight: 267 lb 6.731 oz Body Mass Index (BMI) 44.9 Finger Stick Blood Glucose 227 Intake and Output for Last 24 Hours 11/14/19 11/15/19 11/16/19 23:59 23:59 23:59 Intake Total 240 / 240 Output Total 1875 / 1875 Balance -1635 / -1635 General: Alert, Oriented x3, Cooperative, No apparent distress HEENT: Atraumatic, PERRLA, EOMI, Normocephalic Oral: Moist Mucosa Neck: Supple, No JVD, Negative Carotid Bruits Lungs: - - decreased breath sounds bibasally, no wheezes or crackles. on 4L of oxygen. Cardiovascular: Regular rate, Regular Rhythm, Normal S1, Normal S2, No murmurs Abdomen: Bowel Sounds Present, Soft, Non Tender Extremities: No clubbing, No cyanosis, Capillary Refill Less than 3 Seconds, - - mild 1+ bipedal edema; LE in DIONNA wraps Skin: No rashes, No breakdown Musculoskeletal: No Tenderness to Palpation of Joints or Extremities Lymphatic: No Cervical, Supraclavicular, or Inguinal Adenopathy Neurological: Cranial nerves II-XII grossly intact Psych/Mental Status: Normal Affect, Appropriate, Alert and oriented to time, place, person, mood and affect Laboratory Results 11/16/19 00:23: WBC 15.1 H, RBC 2.92 L, Hgb 9.1 L, Hct 28.7 L, MCV 98.3 H, MCH 31.2, MCHC 31.7 L, RDW Std Deviation 55.2 H, RDW Coeff of Yeny 15.5 H, Plt Count 175, MPV 10.2, Immature Gran % (Auto) 0.500, Neut % (Auto) 81.9 H, Lymph % (Auto) 9.6 L, [place] % (Auto) 5.7, Eos % (Auto) 2.0, Baso % (Auto) 0.3, Absolute Neuts (auto) 12.4 H, Absolute Lymphs (auto) 1.45, Nucleated RBC % 0 11/16/19 00:23: PT 40.2 H, INR 4.1 H* 11/16/19 00:23: Sodium 141, Potassium 5.3 H, Chloride 110 H, Carbon Dioxide 27.0, Anion Gap 4 L, BUN 58 H, Creatinine 2.22 H, Estim Creat Clear Calc 23.86, Est GFR (MDRD) Af Amer 37 L, Est GFR (MDRD) Non-Af 31 L, BUN/Creatinine Ratio 26.1 H, Glucose 78, Calcium 9.1, Troponin I < 0.015 11/16/19 00:23: B-Natriuretic Peptide 809.3 H 11/16/19 00:23: Lactic Acid 1.0 11/16/19 03:40: Troponin I < 0.015 11/16/19 06:06: POC Glucose 72 11/16/19 06:21: WBC 13.0 H, RBC 2.79 L, Hgb 8.5 L, Hct 27.7 L, MCV 99.3 H, MCH 30.5, MCHC 30.7 L, RDW Std Deviation 55.1 H, RDW Coeff of Yeny 15.4 H, Plt Count 172, MPV 10.1 11/16/19 06:21: PT 37.9 H, INR 3.8 H* 11/16/19 06:21: Sodium 141, Potassium 4.8, Chloride 110 H, Carbon Dioxide 26.0, Anion Gap 5, BUN 55 H, Creatinine 2.14 H, Estim Creat Clear Calc 24.75, Est GFR (MDRD) Af Amer 39 L, Est GFR (MDRD) Non-Af 32 L, BUN/Creatinine Ratio 25.7 H, Glucose 76, Calcium 8.6, Troponin I 0.019 Diagnostic Data Chest X-Ray 11/16/19 00:05 IMPRESSION: Stable cardiac enlargement with interval increased perihilar and interstitial lung opacities likely due to underlying edema. Electronically Signed: Regino Cruz, at 0:53 EST Tel , Service support , Current Medications Acetaminophen (Tylenol) 650 mg PO Q6H PRN PRN PRN Reason: Pain Score 1-10/Temp > 100.7 F Allopurinol (Zyloprim) 150 mg PO DAILYCM [facility] Last Admin: 11/16/19 08:41 Dose: 150 mg Documented by: Aspirin (Ecotrin) 81 mg PO DAILY [facility] Last Admin: 11/16/19 08:42 Dose: 81 mg Documented by: Atorvastatin Calcium (Lipitor) 40 mg PO QHS [facility] Cholecalciferol (Vitamin D) 1,000 unit PO DAILY [facility] Last Admin: 11/16/19 08:42 Dose: 1,000 unit Documented by: Famotidine (Pepcid) 20 mg PO DAILY [facility] Last Admin: 11/16/19 08:42 Dose: 20 mg Documented by: Furosemide (Lasix) 40 mg IV BIDLX [facility] Last Admin: 11/16/19 08:40 Dose: 40 mg Documented by: Glucagon () 1 mg IM .X1 PRN PRN Reason: Hypoglycemia Dextrose (Dextrose 10%-Water) 250 mls @ 999 mls/hr IV .Q16M PRN; Protocol PRN Reason: HYPOGLYCEMIA Isosorbide Mononitrate (Imdur) 30 mg PO DAILY [facility] Last Admin: 11/16/19 08:44 Dose: 30 mg Documented by: Losartan Potassium (Cozaar) 25 mg PO DAILY [facility] Last Admin: 11/16/19 08:43 Dose: 25 mg Documented by: Metoprolol Tartrate (Lopressor (Beta Karyn)) 12.5 mg PO BID [facility] Last Admin: 11/16/19 08:42 Dose: 12.5 mg Documented by: Multivitamins (Multivitamin) 1 tablet PO DAILY@0800 [facility] Last Admin: 11/16/19 08:44 Dose: 1 tablet Documented by: Olanzapine (Zyprexa) 2.5 mg PO QHS [facility] Sertraline HCl (Zoloft) 25 mg PO DAILY [facility] Last Admin: 11/16/19 08:40 Dose: 25 mg Documented by: Sodium Chloride () 10 - 40 ml IV UD PRN PRN Reason: SALINE FLUSH STROKE Vital Signs/Narrative: Vital Signs Temp Pulse Resp BP Pulse Ox 11/16/19 12:00 98.1 F 78 18 103/56 L 94 11/16/19 08:42 70 11/16/19 08:32 98.3 F 70 20 H 127/66 H 94 Medical Necessity - Tobacco Use Smoking Status: Former smoker Assessment/Plan All Active Problems (Last Updated 11/13/19 @ 14:35 by ANIYA North) Acute respiratory failure with hypoxia (Acute) Acute on chronic diastolic (congestive) heart failure (Acute) Cellulitis (Resolved) Chest pain (Resolved) Congestive heart failure (Resolved) Hypoxemia (Resolved) Moderate calcific aortic stenosis (Resolved) Ulcer of left lower extremity with fat layer exposed (Resolved) Ulcer of right lower leg (Resolved) Wound of right leg (Resolved) 1. Acute on chronic HFrEF * BNP was 809.3 * CXR showed changes consistent with vascular congestion * on IV lasix 40mg bid * monitor intake and output * fluid restriction to 1500cc daily * on BIPAP prn as needed * 2D echo(11/08/19); EF of 45-50%, with anteroseptal hypokinesis and unable to assess diastolic dysfunction or RVSP. * 2. Probable Community acquired pneumonia * patient was febrile on admission, with temperature of 100F * has elevated wbc of 13 * will check respiratory panel and start on IV levaquin. * check urine for strep and legionella; also check UA * 3. Atrial fibrillation: * rate controlled. * INR was 4.1 on admission, and is now down to 3.8. * Will monitor. * continue metoprolol. coumadin on hold * 4. Diabetes mellitus * lantus held on admission on account of hypoglycemia. * blood sugar on admission was 72 * ISS. accuchecks ACHS * 5. CKD IV: Cr is 2.14, which is around his baseline. Will monitor 6. AUTUMN: on CPAP 7. Chronic respiratory failure due to COPD * on 3L of oxygen at home. Continue breathing treatments * 8. Hyperlipidemia: on statin 9. Hypertension:controlled. ON metoprolol and losartan 10. CAD s/p stents: on aspirin, statin, metoprolol, losartan and imdur DVT prophylaxis: on coumadin. INR is supratherapeutic, so coumadin on hold. Code status: full code. Code Visit Inpatient E&M: 83382 Subs Hosp L3
[2019-11-16 12:26] LABS: Bedside Glucose 136 mg/dL (70-110)
[2019-11-16] MEDS: levoFLOXacin IV 500 MG/100 ML BAG 100 MG IV (13:34)
[2019-11-16] MEDS: 0.9% Saline Lock 10 ML Syringe IV ×2 (13:35→17:30)
[2019-11-16 17:41] LABS: Bedside Glucose 115 mg/dL (70-110)
[2019-11-16] MEDS: OLANZapine 2.5 MG Tablet PO (22:02)
[2019-11-16] MEDS: Atorvastatin Calcium 40 MG Tablet PO (22:02)
[2019-11-16 22:31] LABS: Bedside Glucose 133 mg/dL (70-110)
[2019-11-17] VITALS (10 sets, daily range): BP systolic 116–140; BP diastolic 45–55; PULSE 51–64; RESP 16–18; TEMP 36.3–36.5; O2SAT 87–98
[2019-11-17 06:56] LABS: Absolute Lymphocyte Count 1.73 X10^3/uL (0.83-4.51); Absolute Neutrophil Count 5.7 X10^3/uL (2.0-7.7); Basophil# 0.02 X10^3/uL; Basophil% 0.2 % (0-1); Eosinophil# 0.39 X10^3/uL; Eosinophils% 4.6 % (0-5); Hemoglobin 8.7 g/dL (13.0-16.5); Lymphocyte # 1.73 X10^3/ul (4.0); Lymphocyte % 20.3 % (19-41); Mean Corp Hgb Conc 31.1 g/dL (32-36); Mean Corpuscular Hgb 30.5 pg (27.0-32.0); Mean Corpuscular Volume 98.2 fL (80-94); Mean Platelet Vol. 10.2 fl (6.2-12.0); Monocyte# 0.66 X10^3/uL; Monocyte% 7.7 % (0-10); NRBC Flagged by Analyzer 0 % (0-5); Neutrophil # 5.71 X10^3/uL (2.7-7.7); Neutrophil % 66.8 % (47-70); Platelet Count 166 K/mm3 (150-450); RBC Distribution Width CV 15.3 % (11.6-14.6); RBC Distribution Width SD 54.4 fl (35.1-43.9); Red Blood Count 2.85 M/mm3 (4.6-6.2); White Blood Count 8.5 K/mm3 (4.4-11.0)
[2019-11-17 07:01] LABS: Bedside Glucose 111 mg/dL (70-110)
[2019-11-17 07:07] LABS: Anion Gap 7 (5-15); BUN 64 mg/dL (7-18); BUN/Creat Ratio 25.3 RATIO (10-20); Calcium,Total 8.7 mg/dL (8.5-10.1); Chloride 106 mmol/L (98-107); Creatinine, Serum 2.53 mg/dL (0.70-1.30); EST Glomerular Filtration Rate 26 mL/min (>60); Est Glom Filt Rate - Afr Amer 32 mL/min (>60); Estimated Creatinine Clearance 20.93 ml/min; Glucose 115 mg/dL (74-106); Potassium 4.7 mmol/L (3.5-5.1); Sodium Level 140 mmol/L (136-145)
[2019-11-17] MEDS: Allopurinol 300 MG Tablet 150 MG PO (09:33)
[2019-11-17] MEDS: Isosorbide Mononitrate 30 MG Tablet PO (09:33)
[2019-11-17] MEDS: Aspirin E.C. 81 MG Tablet PO (09:33)
[2019-11-17] MEDS: Multivitamins,Therapeutic Tablet 1 TABLET PO (09:33)
[2019-11-17] MEDS: Losartan Potassium 25 MG Tablet PO (09:33)
[2019-11-17] MEDS: Famotidine 20 MG Tablet PO (09:34)
[2019-11-17] MEDS: Sertraline 50 MG Tablet 25 MG PO (09:34)
[2019-11-17] MEDS: Metoprolol Tartrate 25 MG Tablet 12.5 MG PO (09:34)
[2019-11-17] MEDS: Furosemide 40 MG/4 ML Vial IV (09:34)
[2019-11-17] MEDS: levoFLOXacin IV 250 MG/50 ML BAG 50 MG IV (09:39)
[2019-11-17] MEDS: 0.9% Saline Lock 10 ML Syringe IV (09:40)
--- NOTE | 2019-11-17 11:40 | DCINST_ITS ---
- Discharge Diagnoses Current Active Problems: Current Active and Chronic Problems (Last Updated 11/13/19 @ 14:35 by ANIYA North) CHF (congestive heart failure) (Chronic) You will use the following diet at home:: Cardiac Your food should be the consistency of: Regular Your liquids should be the consistency of: Regular/Thin Discharge Activity: Return to Normal Activity Weight Bearing Status: Weight bearing as tolerated Call your doctor if you observe: Shortness of breath, Dizziness, Swelling in the ankles Instructions: International Normalized Ratio, Taking Medication to Control Heart Failure, What Is Heart Failure?, Heart Failure: Tracking Your Weight Additional Instructions: follow up with PCP, for INR check on Tuesday11/19/19. Target INR is between 2 and 3. Continue takin coumadin 2.5mg Mondays, Wednesdays, , Fridays, Saturdays and Sundays. Allergies/Adverse Reactions: Allergies Penicillins [PCN] Allergy (Verified 11/15/19 23:16) Swelling Medications to take at Discharge Aspirin [Adult Low Dose Aspirin EC] 81 mg PO DAILY 07/11/16 Atorvastatin Calcium [Lipitor] 40 mg PO QHS 07/11/16 Multivitamin [Daily Multiple Vitamin] 1 ea PO DAILY 07/11/16 Insulin Regular, Human [Novolin R] 25 unit SC BID 07/24/16 Cholecalciferol (VIT D3) [Vitamin D3] 1,000 unit PO DAILY 10/26/16 Sertraline HCl [Zoloft] 25 mg PO DAILY 01/10/18 insulin NPH isoph U-100 human 100 unit/mL subcutaneous suspension 25 unit SC BID ml 03/08/18 levETIRAcetam tablet [Keppra tablet] 250 mg PO BID 09/08/19 Allopurinol [Zyloprim] 150 mg PO DAILYCM 09/27/19 Isosorbide Mononitrate [Isosorbide Mononitrate ER] 30 mg PO DAILY 09/27/19 Metoprolol Tartrate [Lopressor (beta josey)] 12.5 mg PO BID 09/27/19 Furosemide [Lasix] 40 mg PO BID #60 tab 09/29/19 famotidine 20 mg tablet 20 mg PO DAILY 11/13/19 losartan 25 mg tablet 25 mg PO DAILY 11/13/19 olanzapine 2.5 mg tablet 2.5 mg PO QHS 11/13/19 Warfarin [Coumadin] 2.5 mg PO SUMOWEFRSA 11/17/19 Primary Care Physician: Romaine Velazquez MD [Primary Care Provider] - Please follow up with your Primary Care Physician in: within one week for INR check Test Results: Test results from this visit will be discussed in further detail at your follow- up appointment, if applicable. Proposed Discharge Date: 11/17/19
[2019-11-17 12:01] LABS: International Normalized Ratio 1.1; Prothrombin Time (Protime)PT. 14.4 SECONDS (11.7-14.9)
[2019-11-17] MEDS: Insulin Lispro 100 UNIT/ML INSULN.PEN SC (12:47)
[2019-11-17 12:56] LABS: Bedside Glucose 202 mg/dL (70-110)
--- NOTE | 2019-11-17 13:37 | NURSING ---
Called [facility] pharmacy for current Coumadin dosage. Pharmacy is closed. Called patient's grand daughter and spoke with her. Coumadin dose updated in [facility].
--- NOTE | 2019-11-17 15:59 | PCM.DC.SUM ---
Discharge Date and Diagnosis Date of Admission: 11/16/19 Date of Discharge: 11/17/19 - Primary Discharge Diagnosis acute on chronic HFrEF community acquired pneumonia supratherapeutic INR - Secondary Discharge Diagnosis Chronic Problems (Last Updated 11/13/19 @ 14:35 by ANIYA North) CHF (congestive heart failure) (Chronic) AUTUMN (obstructive sleep apnea) (Chronic) Acute exacerbation of CHF (congestive heart failure) (Chronic) Lymphedema (Chronic) Chronic atrial fibrillation (Chronic) On coumadin, managed by PCP Atherosclerosis of coronary artery bypass graft without angina pectoris (Chronic) Redo CABG x 3 SVG-LAD, SVG OM of Cx, SVG- PDA of RCA and aortic valve replacement with #25 Pietro-Sheppard valve. 02/24/2016 CABG x 4 OAKLEY-D1, SVG-Distal LAD, SVG-Lat CX, SVG-RCA 12/15/98 Non-rheumatic aortic stenosis (Chronic) H/O aortic valve replacement (Chronic) aortic valve replacement with #25 Pietro-Sheppard valve. 02/24/2016 H/O coronary artery bypass surgery (Chronic ~02/24/16) Redo CABG x 3 SVG-LAD, SVG OM of Cx, SVG- PDA of RCA and aortic valve replacement with #25 Pietro-Sheppard valve. 02/24/2016 CABG x 4 OAKLEY-D1, SVG-Distal LAD, SVG-Lat CX, SVG-RCA 12/15/98 Hypertension (Chronic) Left bundle branch block (Chronic) Localized edema (Chronic) Venous insufficiency of both lower extremities (Chronic) Hyperlipemia (Chronic) Chronic renal failure, stage 3 (moderate) (Chronic) Morbid obesity with BMI of 45.0-49.9, adult (Chronic) Hospital Course and Treatment Imaging Results: Diagnostic Data Chest X-Ray 11/16/19 00:05 IMPRESSION: Stable cardiac enlargement with interval increased perihilar and interstitial lung opacities likely due to underlying edema. Electronically Signed: Regino Cruz, at 0:53 EST Tel , Service support , Operations: None Procedures: 2-D Echocardiogram Summary of Care Provided: The patient is a 79 year old M admitted in the early hours of 11/16/2019 with a complaint of progressively worsening shortness of breath and orthopnea which started on the day before presentation. He states he had been treated for pneumonia a few months prior to admission and his shortness of breath had persisted since then. He had cut down on his Lasix dose to 40 mg daily because of kidney dysfunction according to patient. He was on baseline 3 L of oxygen at home but when he was brought to the ED he was saturating at 91% on 4 L of oxygen. His saturation level dropped to 78% on 4 L of oxygen and he was breathing in the 30s. He needed a nonrebreather mask for saturation to improved to the 90s. He had to be transitioned to BiPAP to help with his shortness of breath. Is admitted and managed for acute exacerbation of heart failure with reduced ejection fraction. Was started on IV Lasix 40 mg twice daily. He was put on fluid restriction 2500 cc daily and put on a 2 g low-sodium diet. This x-ray done on admission showed changes consistent with vascular congestion. Patient however also had an elevated temperature of 100 Fahrenheit and elevated white cell count of 13 so he was started with IV Levaquin for presumptive community-acquired pneumonia. Urine for strep and Legionella were negative and respiratory panel was also negative. Of note, he had a known EF of 45 to 50% from echo done on 11/08/2019. INR was supratherapeutic on admission 4.1 and this trended down to 3.8 and was 1.1 on day of discharge. His Coumadin was held. Patient remained stable and shortness of breath resolved. He went back to his baseline 3 L of oxygen. However, it was noted that oxygen level dropped to 87% at rest on room air on day of discharge and so he qualified for 4 L of oxygen. He was discharged home on 11/17/2019 on p.o. Lasix 40 mg twice daily. He was also given a prescription for p.o. Levaquin 250 mg daily for 2 days-renally adjusted dose. He is to follow-up with his primary care doctor and lead applications developer. Seen and examined prior to discharge. He had no complaints and felt well. Shortness of breath had resolved. He felt ready to go home. Review systems otherwise negative. Labs and vitals reviewed. Home medications reviewed and reconciled. o/e: Vital Signs Height 5 ft 5 in Weight: 262 lb 5.601 oz Weight in Pounds 262.4 lbs Pulse Ox [At REST on Room Air] 87 Pulse Ox 96 Temperature 97.3 F Pulse Rate 59 Respiratory Rate 16 Blood Pressure 116/54 Blood Pressure Position Semi-Fowlers [] General: Alert, Oriented x3, Cooperative, No apparent distress HEENT: Atraumatic, PERRLA, EOMI, Normocephalic Oral: Moist Mucosa Neck: Supple, No JVD, Negative Carotid Bruits Lungs: - -mildly decreased breath sounds, no wheezes or crackles. on 2L of oxygen. Cardiovascular: Regular rate, Regular Rhythm, Normal S1, Normal S2, No murmurs Abdomen: Bowel Sounds Present, Soft, Non Tender Extremities: No clubbing, No cyanosis, Capillary Refill Less than 3 Seconds, - - mild 1+ bipedal edema; LE in DIONNA wraps Skin: No rashes, No breakdown Musculoskeletal: No Tenderness to Palpation of Joints or Extremities Lymphatic: No Cervical, Supraclavicular, or Inguinal Adenopathy Neurological: Cranial nerves II-XII grossly intact Psych/Mental Status: Normal Affect, Appropriate, Alert and oriented to time, place, person, mood and affect Plan is to discharge home. His Coumadin was resumed and he is to get his INR checked on Tuesday in his PCPs office for target INR of 2-3. - Physical Exam Vitals/I&O's: Vital Signs Temp Pulse Resp BP Pulse Ox 97.3 F L 59 L 16 116/54 L 96 11/17/19 13:43 11/17/19 13:43 11/17/19 13:43 11/17/19 13:43 11/17/19 14:00 Oxygen Flow Rate (L/min) 2 Oxygen Delivery Method Nasal Cannula Weight: 262 lb 5.601 oz Body Mass Index (BMI) 44.9 Finger Stick Blood Glucose 227 Intake and Output for Last 24 Hours 11/15/19 11/16/19 11/17/19 23:59 23:59 23:59 Intake Total 680 / 680 780 / 780 Output Total 4400 / 4400 950 / 950 Balance -3720 / -3720 -170 / -170 Microbiology Past 72 Hours 11/16/19 11:40 Mucosa - Nasopharyngeal Respiratory Panel (PCR) - Final Laboratory Results 11/16/19 17:14: POC Glucose 115 H 12/20/19 22:01: POC Glucose 133 H 11/17/19 06:17: WBC 8.5, RBC 2.85 L, Hgb 8.7 L, Hct 28.0 L, MCV 98.2 H, MCH 30.5, MCHC 31.1 L, RDW Std Deviation 54.4 H, RDW Coeff of Yeny 15.3 H, Plt Count 166, MPV 10.2, Immature Gran % (Auto) 0.400, Neut % (Auto) 66.8, Lymph % (Auto) 20.3, [place] % (Auto) 7.7, Eos % (Auto) 4.6, Baso % (Auto) 0.2, Absolute Neuts (auto) 5.7, Absolute Lymphs (auto) 1.73, Nucleated RBC % 0 11/17/19 06:17: Sodium 140, Potassium 4.7, Chloride 106, Carbon Dioxide 27.0, Anion Gap 7, BUN 64 H, Creatinine 2.53 H, Estim Creat Clear Calc 20.93, Est GFR (MDRD) Af Amer 32 L, Est GFR (MDRD) Non-Af 26 L, BUN/Creatinine Ratio 25.3 H, Glucose 115 H, Calcium 8.7 11/17/19 06:17: PT 14.4, INR 1.1 11/17/19 06:40: POC Glucose 111 H 11/17/19 12:36: POC Glucose 202 H Current Medications Acetaminophen (Tylenol) 650 mg PO Q6H PRN PRN PRN Reason: Pain Score 1-10/Temp > 100.7 F [facility] 11/17/19 09:33 Dose: 150 mg Documented by: Aspirin (Ecotrin) 81 mg PO DAILY [facility] Last Admin: 11/17/19 09:33 Dose: 81 mg Documented by: Atorvastatin Calcium (Lipitor) 40 mg PO QHS [facility] Last Admin: 11/16/19 22:02 Dose: 40 mg Documented by: Cholecalciferol (Vitamin D) 1,000 unit PO DAILY [facility] Last Admin: 11/17/19 09:34 Dose: 1,000 unit Documented by: Famotidine (Pepcid) 20 mg PO DAILY [facility] Last Admin: 11/17/19 09:34 Dose: 20 mg Documented by: Furosemide (Lasix) 40 mg IV BIDLX [facility] Last Admin: 11/17/19 09:34 Dose: 40 mg Documented by: Glucagon () 1 mg IM .X1 PRN PRN Reason: Hypoglycemia Dextrose (Dextrose 10%-Water) 250 mls @ 999 mls/hr IV .Q16M PRN; Protocol PRN Reason: HYPOGLYCEMIA Levofloxacin (Levaquin Iv) 250 mg in 50 mls @ 50 mls/hr IV Q24 [facility] Last Infusion: 11/17/19 10:40 Dose: Infused Documented by: Insulin Human Lispro (Humalog Kwikpen (Bkc)) 0 unit SC ACHS [facility]; Protocol Last Admin: 11/17/19 12:47 Dose: 4 units Documented by: Isosorbide Mononitrate (Imdur) 30 mg PO DAILY [facility] Last Admin: 11/17/19 09:33 Dose: 30 mg Documented by: Losartan Potassium (Cozaar) 25 mg PO DAILY [facility] Last Admin: 11/17/19 09:33 Dose: 25 mg Documented by: Metoprolol Tartrate (Lopressor (Beta Karyn)) 12.5 mg PO BID [facility] Last Admin: 11/17/19 09:34 Dose: 12.5 mg Documented by: Multivitamins (Multivitamin) 1 tablet PO DAILY@0800 [facility] Last Admin: 11/17/19 09:33 Dose: 1 tablet Documented by: Olanzapine (Zyprexa) 2.5 mg PO QHS [facility] Last Admin: 11/16/19 22:02 Dose: 2.5 mg Documented by: Sertraline HCl (Zoloft) 25 mg PO DAILY [facility] Last Admin: 11/17/19 09:34 Dose: 25 mg Documented by: Sodium Chloride () 10 - 40 ml IV UD PRN PRN Reason: SALINE FLUSH Last Admin: 11/17/19 09:40 Dose: 10 ml Documented by: Discharge Diet: Low fat/ Low Cholesterol Discharge Activity: Return to Normal Activity Weight Bearing Status: Weight bearing as tolerated Call your doctor if you observe: Shortness of breath, Dizziness, Swelling in the ankles Home Medications: Medications to take at Discharge Aspirin [Adult Low Dose Aspirin EC] 81 mg PO DAILY 07/11/16 Atorvastatin Calcium [Lipitor] 40 mg PO QHS 07/11/16 Multivitamin [Daily Multiple Vitamin] 1 ea PO DAILY 07/11/16 Insulin Regular, Human [Novolin R] 25 unit SC BID 07/24/16 Cholecalciferol (VIT D3) [Vitamin D3] 1,000 unit PO DAILY 10/26/16 Sertraline HCl [Zoloft] 25 mg PO DAILY 01/10/18 insulin NPH isoph U-100 human 100 unit/mL subcutaneous suspension 25 unit SC BID ml 03/08/18 levETIRAcetam tablet [Keppra tablet] 250 mg PO BID 09/08/19 Allopurinol [Zyloprim] 150 mg PO DAILYCM 09/27/19 Isosorbide Mononitrate [Isosorbide Mononitrate ER] 30 mg PO DAILY 09/27/19 Metoprolol Tartrate [Lopressor (beta karyn)] 12.5 mg PO BID 09/27/19 Furosemide [Lasix] 40 mg PO BID #60 tab 09/29/19 famotidine 20 mg tablet 20 mg PO DAILY 11/13/19 losartan 25 mg tablet 25 mg PO DAILY 11/13/19 olanzapine 2.5 mg tablet 2.5 mg PO QHS 11/13/19 Warfarin [Coumadin] 2.5 mg PO SUMOWEFRSA 11/17/19 Primary Care Physician: Romaine Velazquez MD [Primary Care Provider] - Please follow up with your Primary Care Physician in: within one week for INR check Please Follow Up With: Romaine Velazquez MD Patient Instructions: International Normalized Ratio, Taking Medication to Control Heart Failure, What Is Heart Failure?, Heart Failure: Tracking Your Weight Disposition: Home Minutes spent on discharge:: 40 Patient Condition:: Stable Medical Necessity - Tobacco Use Smoking Status: Former smoker Meaningful Use Info Meaningful Use Diagnoses (Choose all that apply): CHF - CHF DIONNA/ARB ordered at discharge?: Yes Documented LVEF (%): 45 Code Visit Inpatient E&M: 24439 Disch Hosp
--- NOTE | 2019-11-17 17:15 | NURSING ---
Patient given Warfarin per Dr. Marmolejo request prior to discharge. Family at bedside and aware of same. Update made on patient's discharge paperwork. Grand daughter who takes care of patient's medication aware of same and voices understanding.
== END 2019-11-17 17:32 | disposition home or self-care (01) | DRG 291 ==
LOC: ED 11-16 01:26 → PCU 11-16 01:35
PROVIDERS: Admitting Provider Hospitalist; Emergency Provider Emergency Medicine; Family Provider Family Medicine; PCP Family Medicine; Visit Provider Student in an Organized Health Care Education/Training Program
DX: I13.0 Hypertensive heart and chronic kidney disease with heart failure and stage 1 through stage 4 chronic kidney disease, or unspecified chronic kidney disease (principal); J18.9 Pneumonia, unspecified organism; I50.43 Acute on chronic combined systolic (congestive) and diastolic (congestive) heart failure; N18.4 Chronic kidney disease, stage 4 (severe); I48.20 Chronic atrial fibrillation, unspecified; Z68.41 Body mass index [BMI] 40.0-44.9, adult; J96.10 Chronic respiratory failure, unspecified whether with hypoxia or hypercapnia; I25.810 Atherosclerosis of coronary artery bypass graft(s) without angina pectoris; G47.33 Obstructive sleep apnea (adult) (pediatric); E11.22 Type 2 diabetes mellitus with diabetic chronic kidney disease; Z99.81 Dependence on supplemental oxygen; E78.5 Hyperlipidemia, unspecified; Z95.5 Presence of coronary angioplasty implant and graft; Z95.1 Presence of aortocoronary bypass graft; R79.1 Abnormal coagulation profile; Z79.01 Long term (current) use of anticoagulants; Z87.891 Personal history of nicotine dependence; Z95.3 Presence of xenogenic heart valve; I87.2 Venous insufficiency (chronic) (peripheral); I44.7 Left bundle-branch block, unspecified; E66.01 Morbid (severe) obesity due to excess calories; I89.0 Lymphedema, not elsewhere classified; Z79.4 Long term (current) use of insulin
CPT/HCPCS: 36415; 71045; 80048; 82962; 83605; 83880; 84484; 85025; 85027; 85610; 87040; 87633; 93005; 94002; 97162; 97166; 97530; 97802; 99285; A4216; J1940

== ENCOUNTER → 2019-11-27 09:13 | Outpatient (CLI) | payer MEDICARE, OTHER, SELFPAY ==
[2019-11-16 02:36] VITALS: BMI 44.9
[2019-11-27 10:32] LABS: Cholesterol 91 mg/dL (200); High Density Lipoprotein 32 mg/dL; Triglycerides 106 mg/dL; Uric Acid 6.8 mg/dL (3.5-7.2); Very Low Density Lipoprotein 21 mg/dL (5-40)
== END ==
PROVIDERS: Family Provider Family Medicine; PCP Family Medicine; Referring Provider Internal Medicine; Visit Provider Internal Medicine
DX: E11.9 Type 2 diabetes mellitus without complications (principal)
CPT/HCPCS: 36415; 80061; 83036; 84550

== ENCOUNTER → 2019-11-30 20:07 | Outpatient (CLI) | payer MEDICARE, OTHER, SELFPAY ==
[2019-10-16 07:41] VITALS: BMI 45.1
[2019-11-16 02:36] VITALS: BMI 44.9
== END ==
PROVIDERS: Family Provider Family Medicine; PCP Family Medicine; Referring Provider Nurse Practitioner Acute Care; Visit Provider Nurse Practitioner Acute Care
DX: G47.33 Obstructive sleep apnea (adult) (pediatric) (principal)
CPT/HCPCS: 95811

== ENCOUNTER → 2019-12-03 | Outpatient (CLI) | payer MEDICARE, OTHER, SELFPAY ==
[2019-11-16 02:36] VITALS: BMI 44.9
[2019-12-03 13:56] LABS: Hematocrit 31.7 % (40-54); Hemoglobin 9.6 g/dL (13.0-16.5); Mean Corp Hgb Conc 30.3 g/dL (32-36); Mean Corpuscular Volume 99.1 fL (80-94); Mean Platelet Vol. 10.7 fl (6.2-12.0); Platelet Count 174 K/mm3 (150-450); RBC Distribution Width CV 15.2 % (11.6-14.6); RBC Distribution Width SD 55.1 fl (35.1-43.9); White Blood Count 12.1 K/mm3 (4.4-11.0)
[2019-12-03 14:05] LABS: Protein, Urine (Random) 26.5 mg/dL (<11.9); Protein:Creat Ratio 423 mg/g CRE (0-200)
[2019-12-03 14:26] LABS: Albumin, Serum 3.1 g/dL (3.2-5.0); BUN 69 mg/dL (7-18); Calcium,Total 8.2 mg/dL (8.5-10.1); Chloride 108 mmol/L (98-107); Creatinine, Serum 2.38 mg/dL (0.70-1.30); EST Glomerular Filtration Rate 28 mL/min (>60); Est Glom Filt Rate - Afr Amer 34 mL/min (>60); Ferritin 462 ng/mL (26-388); Glucose 145 mg/dL (74-106); Iron 45 ug/dL (65-175); Iron Binding Capacity,Total 202 ug/dL (250-450); PERCENT IRON SATURATION 22.3 % (15.0-55.0); Potassium 4.7 mmol/L (3.5-5.1); Sodium Level 138 mmol/L (136-145); Uric Acid 7.1 mg/dL (3.5-7.2)
[2019-12-03 14:27] LABS: PTHIN 182.1 pg/mL (18.4-80.1)
== END | disposition home or self-care (01) ==
LOC: MTLAB 12:34
PROVIDERS: Family Provider Family Medicine; PCP Family Medicine; Referring Provider Internal Medicine Nephrology; Visit Provider Internal Medicine Nephrology
DX: I12.9 Hypertensive chronic kidney disease with stage 1 through stage 4 chronic kidney disease, or unspecified chronic kidney disease (principal); N18.4 Chronic kidney disease, stage 4 (severe); N25.81 Secondary hyperparathyroidism of renal origin; D63.1 Anemia in chronic kidney disease
CPT/HCPCS: 36415; 80069; 82570; 82728; 83540; 83550; 83970; 84156; 84550; 85027

== ENCOUNTER → 2020-01-18 12:25 | Outpatient (CLI) | payer MEDICARE, OTHER, SELFPAY ==
[2020-01-02 08:06] VITALS: BMI 45.1
[2020-01-17 13:32] VITALS: BMI 45.1
[2020-01-18 12:54] VITALS: PULSE 71; PULSE 75; PULSE 86; PULSE 90; PULSE 91; PULSE 93; PULSE 97; PULSE 98; O2SAT 95; O2SAT 96; O2SAT 98; O2SAT 99
--- NOTE | 2020-01-18 12:58 | CPS ---
Pt came in on own tank at 3 lpm O2. 88% on room air. Started walk on patients 3lpm O2.
--- NOTE | 2020-01-18 13:38 | PCM.PSN.6M ---
PSN 6 Minute Walk Test - 6 Minute Walk Test 6 Minute Walk Test: 6 Minute Walk Test PSN:6-Minute Walk Test Start: 01/18/20 12:54 Freq: Status: Active Protocol: [id number] Document 01/18/20 12:54 MARTHARAMONITA (Rec: 01/18/20 12:57 MARTHAON [id number]) 6 Minute Walk Test Date Performed 01/18/20 Time Performed 12:30 Height 5 ft 5 in Weight: 121.109 kg Weight in Pounds 267.[address]: Josh Cline Assistive device used: None Pre-test Oxygen Flow Rate (L/min) (L/min) 3 Oxygen Delivery Method Nasal Cannula Pulse Ox (%) 99 Pulse Rate (60-100 beats/min) 71 Dyspnea Ruy Scale (0-10) 0 Exertion Ruy Scale (6-20) 6 1st minute Oxygen Flow Rate (L/min) (L/min) 3 Oxygen Delivery Method Nasal Cannula Pulse Ox (%) 98 Pulse Rate (60-100 beats/min) 86 2nd minute Oxygen Flow Rate (L/min) (L/min) 3 Oxygen Delivery Method Nasal Cannula Pulse Ox (%) 96 Pulse Rate (60-100 beats/min) 97 3rd minute Oxygen Flow Rate (L/min) (L/min) 3 Oxygen Delivery Method Nasal Cannula Pulse Ox (%) 96 Pulse Rate (60-100 beats/min) 98 Number of Rests Taken 1 4th minute Oxygen Flow Rate (L/min) (L/min) 3 Oxygen Delivery Method Nasal Cannula Pulse Ox (%) 96 Pulse Rate (60-100 beats/min) 90 5th minute Oxygen Flow Rate (L/min) (L/min) 3 Oxygen Delivery Method Nasal Cannula Pulse Ox (%) 95 Pulse Rate (60-100 beats/min) 91 6th minute Oxygen Flow Rate (L/min) (L/min) 3 Oxygen Delivery Method Nasal Cannula Pulse Ox (%) 95 Pulse Rate (60-100 beats/min) 93 Dyspnea Ruy Scale (0-10) 3 Exertion Ruy Scale (6-20) 14 Reported Symptoms Increased Work of Breathing Post-test Oxygen Flow Rate (L/min) (L/min) 3 Oxygen Delivery Method Nasal Cannula Pulse Ox (%) 98 Pulse Rate (60-100 beats/min) 75 Full Laps Walked 8 Partial Lap, Number of Tiles Walked 36 Total Distance Walked (ft) 508 01/18/20 12:58 Cardiopulmonary Services by Hoda Nava Pt came in on own tank at 3 lpm O2. 88% on room air. Started walk on patients 3lpm O2. Initialized on 01/18/20 12:58 - END OF NOTE - Interpretation Interpretation: The patient was noted to be 88% on room air at rest. The patient was then placed on his 3 L nasal cannula and was able to ambulate 508 feet over the course of 6 minutes with one break. The patient experienced no significant desaturation or tachycardia. These findings are consistent with a respiratory limitation exercise tolerance. - Recommendations Recommendations: The patient required 3 L nasal cannula oxygen at all times.
== END ==
PROVIDERS: PCP Family Medicine; Referring Provider Internal Medicine Critical Care Medicine; Visit Provider Internal Medicine Critical Care Medicine
DX: J96.11 Chronic respiratory failure with hypoxia (principal)
CPT/HCPCS: 94618

== ENCOUNTER → 2020-01-29 09:06 | Outpatient (CLI) | payer MEDICARE, OTHER, SELFPAY ==
[2020-01-17 13:32] VITALS: BMI 45.1
[2020-01-29 12:11] LABS: Absolute Lymphocyte Count 2.11 X10^3/uL (0.83-4.51); Absolute Neutrophil Count 6.5 X10^3/uL (2.0-7.7); Basophil# 0.05 X10^3/uL; Basophil% 0.5 % (0-1); Eosinophils% 4.1 % (0-5); Hematocrit 31.4 % (40-54); Hemoglobin 9.6 g/dL (13.0-16.5); Lymphocyte # 2.11 X10^3/ul (4.0); Lymphocyte % 21.7 % (19-41); Mean Corp Hgb Conc 30.6 g/dL (32-36); Mean Corpuscular Volume 98.1 fL (80-94); Monocyte# 0.67 X10^3/uL; Monocyte% 6.9 % (0-10); NRBC Flagged by Analyzer 0 % (0-5); Neutrophil # 6.46 X10^3/uL (2.7-7.7); Neutrophil % 66.4 % (47-70); Platelet Count 161 K/mm3 (150-450); RBC Distribution Width SD 49.7 fl (35.1-43.9); White Blood Count 9.7 K/mm3 (4.4-11.0)
[2020-01-29 12:25] LABS: Protein, Urine (Random) 34.6 mg/dL (<11.9); Protein:Creat Ratio 343 mg/g CRE (0-200)
[2020-01-29 13:10] LABS: PTHIN 137.8 pg/mL (18.4-80.1)
[2020-01-29 13:12] LABS: BUN 80 mg/dL (7-18); BUN/Creat Ratio 27.9 RATIO (10-20); Calcium,Total 8.4 mg/dL (8.5-10.1); Chloride 110 mmol/L (98-107); Creatinine, Serum 2.87 mg/dL (0.70-1.30); EST Glomerular Filtration Rate 23 mL/min (>60); Est Glom Filt Rate - Afr Amer 28 mL/min (>60); Ferritin 316 ng/mL (26-388); Glucose 116 mg/dL (74-106); Iron 55 ug/dL (65-175); Iron Binding Capacity,Total 194 ug/dL (250-450); PERCENT IRON SATURATION 28.4 % (15.0-55.0); Phosphorus 3.7 mg/dL (2.5-4.9); Potassium 4.9 mmol/L (3.5-5.1); Sodium Level 141 mmol/L (136-145); Uric Acid 6.5 mg/dL (3.5-7.2)
== END ==
PROVIDERS: PCP Family Medicine; Referring Provider Internal Medicine Nephrology; Visit Provider Internal Medicine Nephrology
DX: N18.4 Chronic kidney disease, stage 4 (severe) (principal); I12.9 Hypertensive chronic kidney disease with stage 1 through stage 4 chronic kidney disease, or unspecified chronic kidney disease; N25.81 Secondary hyperparathyroidism of renal origin; D63.1 Anemia in chronic kidney disease
CPT/HCPCS: 36415; 80069; 82570; 82728; 83540; 83550; 83970; 84156; 84550; 85025

== ENCOUNTER 2020-01-29 23:40 | Inpatient (IN) | payer MEDICARE, OTHER, SELFPAY ==
[2020-01-17 13:32] VITALS: BMI 45.1
[2020-01-29 23:42] VITALS: BP 172/99; PULSE 123; RESP 37; TEMP 37.4; O2SAT 92; BMI 39.7
[2020-01-29 23:45] VITALS: BP 172/99; PULSE 118; PULSE 123; PULSE 124; RESP 12; RESP 28; RESP 30; RESP 37; TEMP 37.4; O2SAT 92; O2SAT 98
--- NOTE | 2020-01-29 23:47 | ED.RN ---
PULLED OLD EKGS FOR DR JONES
[2020-01-29 23:48] VITALS: PULSE 122; RESP 43; O2SAT 88
--- NOTE | 2020-01-29 23:52 | EKG12_ITS ---
Test Reason : SOB Blood Pressure : / mmHG Vent. Rate : 122 BPM Atrial Rate : 122 BPM P-R Int : 104 ms QRS Dur : 138 ms QT Int : 322 ms P-R-T Axes : 000 -09 157 degrees QTc Int : 458 ms Atrial Flutter with RVR Left bundle branch block Abnormal ECG Confirmed by NATALIE CORREIA ([id number]), editor book MEENU KOEHLER ([id number]) on 01/30/2020 2:23:01 PM Referred By: Confirmed By:NATALIE CORREIA
--- NOTE | 2020-01-29 23:52 | RAD_ITS ---
STUDY: X-RAY CHEST REASON FOR EXAM: Male, 79 years old. SOB -- HX OF COPD TECHNIQUE: Single AP portable view of the chest. COMPARISON: 11/16/2019. 09/07/2019. FINDINGS: There is interstitial prominence in the lung hunter, suggesting CHF. There is no demonstrated pleural abnormality. There is mild cardiac enlargement. There are sternotomy wires and surgical clips suggesting previous CABG. Normal mediastinum and baudilio. Normal visualized pulmonary arteries. There is atherosclerotic calcification of the aortic arch with tortuosity. There are no visualized acute osseous abnormalities. . There is no demonstrated abnormality of the visualized soft tissue structures of the upper abdomen. RAD/Chest 1 View (Portable) IMPRESSION: Cardiomegaly with CHF. No demonstrated focal pulmonary infiltrate. Electronically Signed: Helio Dumont MD at 0:10 EST , Service support ,
--- NOTE | 2020-01-29 23:54 | ED.VISSUMM ---
- ER Visit Summary Date of Service: 01/29/20 Chief Complaint: Shortness of breath History of Present Illness: The patient is a 79 M presenting with shortness of breath. This started gradually today and worsened throughout the day. He has a history of CHF and COPD. He has had a dry cough. He denies chest pain. He is unsure if he has had a fever. Denies other complaints. He is a smoker. He is speaking in one-word sentences on arrival. Physical Examination: Vitals are stable. Blood pressure 172/99, temperature 99.3, heart rate 122, respiratory rate 43. Pulse ox 83% on nonrebreather mask. HEENT exam is unremarkable. Neck is supple. Lungs are wheezing and diminished breath sounds bilaterally, retractions Heart is regular and tachycardic. Abdomen is soft nontender nondistended. Extremities are unremarkable. Skin is warm and dry. No focal neurologic deficit. Remainder of exam is unremarkable. Emergency Department Course and Treatment: Patient was given albuterol, Atrovent aerosols. He was given Solu-Medrol IV. He was started on BiPAP on arrival. EKG is sinus tachycardia with left bundle branch block, similar to previous. CBC shows white count 25, hemoglobin 11.2. Chemistries show glucose 150, BUN 86, creatinine 2.96. INR 2.7. Troponin negative. Lactic acid normal. Blood cultures were sent. Influenza negative. Chest x-ray showed Cardiomegaly with CHF. No demonstrated focal pulmonary infiltrate. He was given Lasix IV. While in the emergency room patient now has a temperature of 101. He triggered sepsis alert and was given Levaquin IV. Discussed with the hospitalist for admission. Disposition: Admission Impression: CHF exacerbation, sepsis This note was generated with [employer] dictation software. It may contain incorrect words, spelling, and punctuation that were not noted in review of the chart prior to signing ED Disposition - Plan for ED Patient: Referrals: Romaine Velazquez MD [Primary Care Provider] -
[2020-01-30] VITALS (23 sets, daily range): BP systolic 104–156; BP diastolic 49–78; PULSE 74–747; RESP 12–32; TEMP 36.3–37.9; O2SAT 90–100; BMI 44.9; BMI 45.0
[2020-01-30 00:06] LABS: Absolute Lymphocyte Count 3.27 X10^3/uL (0.83-4.51); Absolute Neutrophil Count 19.7 X10^3/uL (2.0-7.7); Basophil# 0.06 X10^3/uL; Basophil% 0.2 % (0-1); Eosinophil# 0.47 X10^3/uL; Eosinophils% 1.9 % (0-5); Hematocrit 35.7 % (40-54); Hemoglobin 11.2 g/dL (13.0-16.5); Lymphocyte # 3.27 X10^3/ul (4.0); Lymphocyte % 13.1 % (19-41); Mean Corp Hgb Conc 31.4 g/dL (32-36); Mean Corpuscular Hgb 30.6 pg (27.0-32.0); Mean Corpuscular Volume 97.5 fL (80-94); Mean Platelet Vol. 10.5 fl (6.2-12.0); Monocyte# 1.35 X10^3/uL; Monocyte% 5.4 % (0-10); NRBC Flagged by Analyzer 0 % (0-5); Neutrophil # 19.74 X10^3/uL (2.7-7.7); Neutrophil % 78.9 % (47-70); Platelet Count 190 K/mm3 (150-450); RBC Distribution Width CV 14.1 % (11.6-14.6); RBC Distribution Width SD 49.6 fl (35.1-43.9); Red Blood Count 3.66 M/mm3 (4.6-6.2)
[2020-01-30] MEDS: MethylPREDNISolone 125 MG/2 ML Vial IV (00:07)
[2020-01-30] MEDS: Ipratropium/Albuterol Sulfate 3 ML AMPUL.NEB INHALATION (00:12)
[2020-01-30] MEDS: Albuterol 2.5 MG/3 ML VIAL.NEB. INHALATION ×3 (00:12)
[2020-01-30 00:16] LABS: International Normalized Ratio 2.7; Prothrombin Time (Protime)PT. 29.1 SECONDS (11.7-14.9)
[2020-01-30 00:20] LABS: BUN 86 mg/dL (7-18); Creatinine, Serum 2.96 mg/dL (0.70-1.30); EST Glomerular Filtration Rate 22 mL/min (>60); Estimated Creatinine Clearance 21.24 ml/min; Glucose 150 mg/dL (74-106)
[2020-01-30 00:21] LABS: Anion Gap 4 (5-15); BUN/Creat Ratio 29.1 RATIO (10-20); Calcium,Total 8.7 mg/dL (8.5-10.1); Chloride 110 mmol/L (98-107); Est Glom Filt Rate - Afr Amer 27 mL/min (>60); Potassium 4.8 mmol/L (3.5-5.1); Sodium Level 140 mmol/L (136-145)
[2020-01-30] MEDS: levoFLOXacin IV 750 MG/150 ML BAG 100 MG IV (01:09)
--- NOTE | 2020-01-30 01:16 | PCM.HP.STD ---
Problem List (1) Sepsis Status: Acute (2) Heart failure Status: Acute Qualifiers: Heart failure type: systolic (3) CHF (congestive heart failure) Status: Chronic (4) Obstructive sleep apnea Status: Chronic (5) Cholecystitis Status: Inactive (6) Type 2 diabetes mellitus without complications Status: Chronic (7) Anemia Status: Chronic (8) TIA (transient ischemic attack) Status: Chronic (9) Ocular migraine Status: Chronic (10) Hx of cholecystectomy Status: Resolved (11) COPD (chronic obstructive pulmonary disease) Status: Inactive (12) AUTUMN (obstructive sleep apnea) Status: Chronic (13) Acute respiratory failure with hypoxia Status: Acute (14) Right lower lobe pneumonia Status: Inactive Qualifiers: Pneumonia type: due to unspecified organism Qualified Code(s): J18.9 - Pneumonia, unspecified organism (15) Acute exacerbation of CHF (congestive heart failure) Status: Chronic (16) Lymphedema Status: Inactive (17) Acute on chronic diastolic (congestive) heart failure Status: Inactive (18) Chronic atrial fibrillation Status: Chronic Comment: On coumadin, managed by PCP (19) Atrial fibrillation with rapid ventricular response Status: Inactive (20) Atherosclerosis of coronary artery bypass graft without angina pectoris Status: Chronic Qualifiers: [place] vs. transplanted heart: iroquois heart Qualified Code(s): I25.810 - Atherosclerosis of coronary artery bypass graft(s) without angina pectoris Comment: Redo CABG x 3 SVG-LAD, SVG OM of Cx, SVG- PDA of RCA and aortic valve replacement with #25 Pietro-Sheppard valve. 02/24/2016 CABG x 4 OAKLEY-D1, SVG-Distal LAD, SVG-Lat CX, SVG-RCA 12/15/98 (21) Non-rheumatic aortic stenosis Status: Chronic (22) H/O aortic valve replacement Status: Chronic Comment: aortic valve replacement with #25 Pietro-Sheppard valve. 02/24/2016 (23) H/O coronary artery bypass surgery Status: Chronic Comment: Redo CABG x 3 SVG-LAD, SVG OM of Cx, SVG- PDA of RCA and aortic valve replacement with #25 Pietro-Sheppard valve. 02/24/2016 CABG x 4 OAKLEY-D1, SVG-Distal LAD, SVG-Lat CX, SVG-RCA 12/15/98 (24) Hypertension Status: Chronic Qualifiers: Hypertension type: essential hypertension Qualified Code(s): I10 - Essential (primary) hypertension (25) Left bundle branch block Status: Chronic (26) Localized edema Status: Chronic (27) Venous insufficiency of both lower extremities Status: Chronic (28) Hyperlipemia Status: Chronic Qualifiers: Hyperlipidemia type: pure hypercholesterolemia Qualified Code(s): E78.00 - Pure hypercholesterolemia, unspecified; E78.0 - Pure hypercholesterolemia (29) Chronic renal failure, stage 3 (moderate) Status: Chronic (30) Morbid obesity with BMI of 45.0-49.9, adult Status: Chronic History of Present Illness Date of Admission: 01/30/20 Chief Complaint: SOB The patient is a 79 year old M with a significant history of CAD status post CABG; CKD stage IV; chronic atrial fibrillation; bioprosthetic aortic valve replacement who presents emergency department with 1 day history of progressively worsening shortness of breath. Associated with symptoms is nonproductive cough; chills and rigors. At the emergency department patient was found to have low-grade fever; tachypnea and leukocytosis. Chest x-ray showed bilateral infiltrates. Past Medical History Past Medical History (Chronic Problems): Chronic Problems (Last Reviewed 01/30/20 @ 05:[address] Elio Goldsmith MD) CHF (congestive heart failure) (Chronic) Obstructive sleep apnea (Chronic) Type 2 diabetes mellitus without complications (Chronic) Anemia (Chronic) TIA (transient ischemic attack) (Chronic) Ocular migraine (Chronic) AUTUMN (obstructive sleep apnea) (Chronic) Acute exacerbation of CHF (congestive heart failure) (Chronic) Chronic atrial fibrillation (Chronic) On coumadin, managed by PCP Atherosclerosis of coronary artery bypass graft without angina pectoris (Chronic) Redo CABG x 3 SVG-LAD, SVG OM of Cx, SVG- PDA of RCA and aortic valve replacement with #25 Pietro-Sheppard valve. 02/24/2016 CABG x 4 OAKLEY-D1, SVG-Distal LAD, SVG-Lat CX, SVG-RCA 12/15/98 Non-rheumatic aortic stenosis (Chronic) H/O aortic valve replacement (Chronic) aortic valve replacement with #25 Pietro-Sheppard valve. 02/24/2016 H/O coronary artery bypass surgery (Chronic ~02/24/16) Redo CABG x 3 SVG-LAD, SVG OM of Cx, SVG- PDA of RCA and aortic valve replacement with #25 Pietro-Sheppard valve. 02/24/2016 CABG x 4 OAKLEY-D1, SVG-Distal LAD, SVG-Lat CX, SVG-RCA 12/15/98 Hypertension (Chronic) Left bundle branch block (Chronic) Localized edema (Chronic) Venous insufficiency of both lower extremities (Chronic) Hyperlipemia (Chronic) Chronic renal failure, stage 3 (moderate) (Chronic) Morbid obesity with BMI of 45.0-49.9, adult (Chronic) Medical History: Medical History (Last Reviewed 01/30/20 @ 05:[address] Elio Goldsmith MD) Obstructive sleep apnea (Chronic) G47.33 Cholecystitis (Chronic) K81.9 Type 2 diabetes mellitus without complications (Chronic) E11.9 Anemia (Chronic) D64.9 TIA (transient ischemic attack) (Chronic) G45.9 Ocular migraine (Chronic) G43.109 COPD (chronic obstructive pulmonary disease) (Chronic) J44.9 Acute on chronic diastolic (congestive) heart failure (Acute) I50.33 Chronic atrial fibrillation (Chronic) I48.2 On coumadin, managed by PCP Atherosclerosis of coronary artery bypass graft without angina pectoris (Chronic) I25.810 Redo CABG x 3 SVG-LAD, SVG OM of Cx, SVG- PDA of RCA and aortic valve replacement with #25 Pietro-Sheppard valve. 02/24/2016 CABG x 4 OAKLEY-D1, SVG-Distal LAD, SVG-Lat CX, SVG-RCA 12/15/98 Non-rheumatic aortic stenosis (Chronic) I35.0 Hypertension (Chronic) I10 Left bundle branch block (Chronic) I44.7 Localized edema (Chronic) R60.0 Venous insufficiency of both lower extremities (Chronic) I87.2 Hyperlipemia (Chronic) E78.5 Chronic renal failure, stage 3 (moderate) (Chronic) N18.3 Morbid obesity with BMI of 45.0-49.9, adult (Chronic) E66.01, Z68.42 Allergies Penicillins [PCN] Allergy (Verified 01/17/20 13:33) Swelling Home Medications: Ambulatory Orders Medication Instructions Recorded Aspirin [Adult Low Dose Aspirin EC] 81 mg PO DAILY 07/11/16 Atorvastatin Calcium [Lipitor] 40 mg PO QHS 07/11/16 Multivitamin [Daily Multiple 1 ea PO DAILY 07/11/16 Vitamin] Insulin Regular, Human [Novolin R] 25 unit SC BID 07/24/16 Cholecalciferol (VIT D3) [Vitamin 1,000 unit PO DAILY 10/26/16 D3] Sertraline HCl [Zoloft] 25 mg PO DAILY 01/10/18 insulin NPH isoph U-100 human 100 25 unit SC BID ml 03/08/18 unit/mL subcutaneous suspension levETIRAcetam tablet [Keppra 250 mg PO BID 09/08/19 tablet] Allopurinol [Zyloprim] 150 mg PO DAILYCM 09/27/19 Isosorbide Mononitrate [Isosorbide 30 mg PO DAILY 09/27/19 Mononitrate ER] Metoprolol Tartrate [Lopressor 12.5 mg PO BID 09/27/19 (beta josey)] Furosemide [Lasix] 40 mg PO BID #60 tab 09/29/19 famotidine 20 mg tablet 20 mg PO DAILY 11/13/19 losartan 25 mg tablet 25 mg PO DAILY 11/13/19 olanzapine 2.5 mg tablet 2.5 mg PO QHS 11/13/19 Warfarin [Coumadin] 2.5 mg PO SUMOWEFR 11/17/19 Calcitriol 0.25 mcg PO DAILY 01/30/20 Psyllium Husk [Daily Fiber] 0.4 gm PO DAILY 01/30/20 Surgical History: Surgical History (Last Reviewed 01/30/20 @ 05:[address] Elio Goldsmith MD) Hx of cholecystectomy (Resolved) Onset Date: ~01/13/17 Z90.49 H/O aortic valve replacement (Chronic) Z95.2 aortic valve replacement with #25 Pietro-Sheppard valve. 02/24/2016 H/O coronary artery bypass surgery (Chronic) Onset Date: ~02/24/16 Z95.1 Redo CABG x 3 SVG-LAD, SVG OM of Cx, SVG- PDA of RCA and aortic valve replacement with #25 Pietro-Sheppard valve. 02/24/2016 CABG x 4 OAKLEY-D1, SVG-Distal LAD, SVG-Lat CX, SVG-RCA 12/15/98 Surgical History: cataract, coronary bypass surgery - x 3, - - Aortic valve replacement, bilateral carpal tunnel release, PICC line. Psychiatric History: No pertinent psych hx Smoking Status: Former smoker - *Family History Maternal Family History: Family History (Last Reviewed 01/30/20 @ 05:[address] Elio Goldsmith MD) Father Myocardial infarction Mother CVA (cerebral vascular accident) Brother CAD (coronary artery disease) Diabetes History Items: Stroke - mother at age 60 from stroke Sibling Family History: Family History (Last Reviewed 01/30/20 @ 05:[address] Elio Goldsmith MD) Father Myocardial infarction Mother CVA (cerebral vascular accident) Brother CAD (coronary artery disease) Diabetes History Items: Seizures - recently diagnosed Review of Systems Constitutional: Reports: Chills, Malaise HEENT: Denies: Head Aches, Sinus Congestion, Sinus Drainage Cardiovascular: Reports: Orthopnea, Paroxysmal Noc. Dyspnea. Denies: Chest Pain, Palpitations Respiratory: Reports: Cough, Shortness of Breath. Denies: Shortness of breath at rest, Sputum production Gastrointestinal: Denies: Abdominal Pain, Nausea, Vomiting Genitourinary: Denies: Dysuria Musculoskeletal: Denies: Joint Pain, Joint Tenderness Skin: Denies: Rash, Wounds Neurological: Denies: Numbness, Tingling, Focal weakness Psychiatric: Denies: Anxiety, Depression, Homicidal Ideations, Suicidal Ideations Hematologic/ Lymphatic: Denies: Easy Bruising, Easy Bleeding VTE Information - Inpt Only VTE Present on Admission: No VTE Mechan Device Prophylaxis: None VTE Pharm Prophylaxis ordered?: No Reason prophylaxis not ordered:: Treatment Not Indicated - Coumadin for A. fib continued Patient Problems: Active and Suspected Problems (Last Reviewed 01/30/20 @ 05:[address] Elio Goldsmith MD) Sepsis (Acute) Heart failure (Acute) - Physical Exam Vitals/I&O's: Vital Signs Temp Pulse Resp BP Pulse Ox 100.2 F H 96 27 H 123/69 H 99 01/30/20 01:00 01/30/20 01:00 01/30/20 01:00 01/30/20 01:00 01/30/20 01:00 Oxygen Flow Rate (L/min) 15 Oxygen Delivery Method Bi-pap Weight: 125.6 kg Body Mass Index (BMI) 39.7 Finger Stick Blood Glucose 227 General: Alert, Oriented x3, Cooperative HEENT: Atraumatic, PERRLA, EOMI, Normocephalic Neck: Supple, Trachea Midline Lungs: Rales - Bibasilar, Short of Breath, Tachypneic, Using Accessory Muscles Cardiovascular: Regular rate, Normal S1, Normal S2 Abdomen: Bowel Sounds Present, Soft, Non Tender, Obese Extremities: Capillary Refill Less than 3 Seconds, Edema - Bilateral feet Skin: No rashes, No breakdown Musculoskeletal: No Tenderness to Palpation of Joints or Extremities Neurological: Cranial nerves II-XII grossly intact Psych/Mental Status: Normal Affect, Appropriate Microbiology Past 72 Hours 01/30/20 00:05 Mucosa - Nasopharyngeal Influenza Types A,B Direct FA (AYUSH) - Final Laboratory Results 01/29/20 23:50: WBC 25.0 H, RBC 3.66 L, Hgb 11.2 L, Hct 35.7 L, MCV 97.5 H, MCH 30.6, MCHC 31.4 L, RDW Std Deviation 49.6 H, RDW Coeff of Yeny 14.1, Plt Count 190, MPV 10.5, Immature Gran % (Auto) 0.500, Neut % (Auto) 78.9 H, Lymph % (Auto) 13.1 L, [place] % (Auto) 5.4, Eos % (Auto) 1.9, Baso % (Auto) 0.2, Absolute Neuts (auto) 19.7 H, Absolute Lymphs (auto) 3.27, Nucleated RBC % 0 01/29/20 23:50: PT 29.1 H, INR 2.7 01/29/20 23:50: Sodium 140, Potassium 4.8, Chloride 110 H, Carbon Dioxide 26.0, Anion Gap 4 L, BUN 86 H, Creatinine 2.96 H, Estim Creat Clear Calc 21.24, Est GFR (MDRD) Af Amer 27 L, Est GFR (MDRD) Non-Af 22 L, BUN/Creatinine Ratio 29.1 H, Glucose 150 H, Calcium 8.7, Troponin I < 0.015 01/29/20 23:50: Lactic Acid 1.0 01/29/20 23:50: B-Natriuretic Peptide Pending Current Medications Levofloxacin (Levaquin Iv) 750 mg in 150 mls @ 100 mls/hr IV X1 ONE Stop: 01/30/20 02:29 Last Admin: 01/30/20 01:09 Dose: 100 mls/hr Documented by: Assessment/Plan All Active Problems (Last Reviewed 01/30/20 @ 05:[address] Elio Goldsmith MD) Sepsis (Acute) Heart failure (Acute) Hx of cholecystectomy (Resolved ~01/13/17) Acute respiratory failure with hypoxia (Acute) Cellulitis (Resolved) Chest pain (Resolved) Congestive heart failure (Resolved) Hypoxemia (Resolved) Moderate calcific aortic stenosis (Resolved) Ulcer of left lower extremity with fat layer exposed (Resolved) Ulcer of right lower leg (Resolved) Wound of right leg (Resolved) The patient is a 79 year old M with a significant history of CAD status post CABG; CKD stage III; chronic atrial fibrillation; bioprosthetic aortic valve replacement who presents emergency department with 1 day history of progressively worsening shortness of breath; chills and rigors and found to have low-grade fever; tachypnea and leukocytosis; and chest x-ray showing bilateral infiltrates consistent with sepsis secondary to probable pneumonia and acute exacerbation of systolic heart failure. Sepsis secondary to probable pneumonia. Lactic acid:1.0 RR : 20-32 Heart rate: Highest of 124 Blood culture ?2 is pending; follow urine culture. Influenza screen was negative. Gets comprehensive respiratory pathogen panel. Impression of chest x-ray: Cardiomegaly with CHF. Chest x-ray was independently reviewed. I agree with radiologist interpretation. Antibiotics: Received Levaquin at the emergency department. Will dose Levaquin every 48 hours because of creatinine clearance. Add aztreonam Legionella antigen screen and Strep antigen ordered Tessalon Perles as needed Acute on chronic systolic heart failure Echocardiogram on 09/08/2019: Left ventricular ejection fraction of 45 to 50%. Unable to assess diastolic dysfunction. Anterior septal hypokinesis. Stable appearing bio prosthetic aortic valve apparatus. Received Lasix 40 mg IV at emergency department. Continue Lasix 40 mg IV twice daily. Placed on BiPAP for the emergency department; BiPAP continued. DARRYL on CKD stage IV CKD likely from diabetes Baseline creatinine is around 2.5. On presentation creatinine was 2.96. Likely to cardiorenal syndrome. Lasix as above. Trend BMP. Avoid nephrotoxic's. Losartan held secondary to DARRYL. Urinalysis showed proteinuria. Calcitrol and vitamin D 3 continued. Diabetes mellitus with nephropathy. With hyperglycemia on presentation De-escalate basal insulin to a lesser dose. Patient takes short acting insulin twice daily. Decrease dose and make 3 times daily in the hospital setting. Add correction scale insulin. Hypertension On presentation blood pressure was not within goal Metoprolol and isosorbide mononitrate continued. Labetalol PRN ordered. Chronic A. fib Of note patient takes his Coumadin on Wednesdays and Fridays. On Tuesdays and Saturdays he does not take Coumadin. Continue Coumadin per home dosing. Trend INR Gout Allopurinol continued GERD Pepcid continued Seizures Keppra continued Obstructive Sleep apnea BiPAP nightly and PRN. DVT prophylaxis Coumadin for Afib continued Code Visit Inpatient E&M: 84347 Init Hosp L3
[2020-01-30 01:44] LABS: BNP,B-Type NATRIURETIC PEPTIDE 412.4 pg/mL (0-100)
[2020-01-30] MEDS: Furosemide 40 MG/4 ML Vial IV ×3 (02:00→21:56)
[2020-01-30 03:10] LABS: Bacteria 0 SEEN /hpf (None Seen); Color, Urine Yellow (Yellow); Glucose, Dipstick Normal (Normal); Ketone-Dipstick Negative (Negative); Leukocyte Esterase-Dipstick 25 /ul (Negative); Mucous, Urine 0 SEEN /hpf (<or=2+); Nitrite-Dipstick Negative (Negative); Occult Blood-Urine 25 /ul (Negative); Protein-Dipstick 100 mg/dl (Negative); Specific Gravity, Urine 1.015 (1.002-1.030); Urine Bilirubin Dipstick Negative (Negative); Urine Clarity Clear (Clear); Urine Urobilinogen Normal (Normal)
[2020-01-30] MEDS: CLARIFY ORDER 1 EACH NOTE (03:12)
[2020-01-30 03:20] LABS: Red Blood Cells-Urine 0-5 SEEN /hpf (0-5); Squamous Epithelial Cells - UA 0-5 SEEN /hpf (0-5); White Blood Cells 0-5 SEEN /hpf (0-5)
[2020-01-30 06:53] LABS: Absolute Lymphocyte Count 0.67 X10^3/uL (0.83-4.51); Absolute Neutrophil Count 18.1 X10^3/uL (2.0-7.7); Basophil# 0.03 X10^3/uL; Basophil% 0.2 % (0-1); Eosinophil# 0.01 X10^3/uL; Eosinophils% 0.1 % (0-5); Hematocrit 29.1 % (40-54); Hemoglobin 9.2 g/dL (13.0-16.5); Lymphocyte # 0.67 X10^3/ul (4.0); Lymphocyte % 3.5 % (19-41); Mean Corp Hgb Conc 31.6 g/dL (32-36); Mean Corpuscular Hgb 30.4 pg (27.0-32.0); Mean Platelet Vol. 10.7 fl (6.2-12.0); Monocyte# 0.13 X10^3/uL; Monocyte% 0.7 % (0-10); NRBC Flagged by Analyzer 0 % (0-5); Neutrophil # 18.05 X10^3/uL (2.7-7.7); Neutrophil % 94.8 % (47-70); Platelet Count 149 K/mm3 (150-450); RBC Distribution Width CV 14.1 % (11.6-14.6); RBC Distribution Width SD 49.3 fl (35.1-43.9); Red Blood Count 3.03 M/mm3 (4.6-6.2)
[2020-01-30 07:21] LABS: Anion Gap 4 (5-15); BUN 88 mg/dL (7-18); BUN/Creat Ratio 29.7 RATIO (10-20); Calcium,Total 8.1 mg/dL (8.5-10.1); Chloride 111 mmol/L (98-107); Creatinine, Serum 2.96 mg/dL (0.70-1.30); EST Glomerular Filtration Rate 22 mL/min (>60); Est Glom Filt Rate - Afr Amer 27 mL/min (>60); Estimated Creatinine Clearance 17.89 ml/min; Glucose 272 mg/dL (74-106); Sodium Level 138 mmol/L (136-145)
[2020-01-30] MEDS: Metoprolol Tartrate 25 MG Tablet 12.5 MG PO ×2 (08:59→21:54)
[2020-01-30] MEDS: Aspirin E.C. 81 MG Tablet PO (08:59)
[2020-01-30] MEDS: Multivitamins,Therapeutic Tablet 1 TABLET PO (08:59)
[2020-01-30] MEDS: Insulin NPH Human 100 UNITS/ML PEN 10 UNITS SC ×2 (09:00→22:20)
[2020-01-30] MEDS: Allopurinol 300 MG Tablet 150 MG PO (09:00)
[2020-01-30] MEDS: Isosorbide Mononitrate 30 MG Tablet PO (09:00)
[2020-01-30] MEDS: levETIRAcetam 250 MG Tablet PO ×2 (09:00→21:58)
[2020-01-30] MEDS: Psyllium 1 PACKET PO (09:01)
[2020-01-30] MEDS: Calcitriol 0.25 MCG Capsule PO (09:01)
[2020-01-30] MEDS: Sertraline 50 MG Tablet 25 MG PO (09:01)
[2020-01-30] MEDS: Famotidine 20 MG Tablet PO (09:01)
[2020-01-30] MEDS: Insulin Lispro 100 UNIT/ML INSULN.PEN 8 UNIT SC ×3 (09:09→17:03)
[2020-01-30] MEDS: Insulin Lispro 100 UNIT/ML INSULN.PEN SC ×4 (09:09→22:20)
[2020-01-30 09:10] LABS: Bedside Glucose 278 mg/dL (70-110)
[2020-01-30 10:28] LABS: Potassium 5.3 mmol/L (3.5-5.1)
[2020-01-30 12:20] LABS: Bedside Glucose 409 mg/dL (70-110)
--- NOTE | 2020-01-30 12:37 | CASEMGMT ---
RN CM Assessment Note Presentation: CHF, Sepsis Intro role of CM and purpose of RN CM assessment to patient in room. Pt is awake, alert and able to participate in assessment. Demographics, PCP and Pharmacy verified. Pt states he lives at home with his ; is generally independent, but granddaughter assists them. PCP: Dr. Velazquez Specialists: Dr. Shook, cardiology; Zechariah Monteiro, Endocrinology; Dr. Cline, Pulmonology Preferred Pharmacy: [facility] Insurance: [facility] Prescription Benefit: yes LNOK : Gabrielle and Granddaughter Maria Luisa Living Arrangements: Lives in one story home, no steps. Pt states he is independent in ADL's. Does not use ambulatory DME, but has at home if needed. Transportation: Granddaughter drives DME: Oxygen through [employer]. Call to [employer]-script is for 2L NC with activity, Bipap. HHC/SNF: pt states he has been to [facility] in the past. Patient DC goals: Home on discharge DC PLAN: anticipate home on discharge.PT/OT evaluations pending. RN CM advised to contact cm for any concerns/needs that may arise.
[2020-01-30 17:05] LABS: Bedside Glucose 413 mg/dL (70-110)
[2020-01-30] MEDS: Atorvastatin Calcium 40 MG Tablet PO (21:53)
[2020-01-30] MEDS: OLANZapine 2.5 MG Tablet PO (21:58)
[2020-01-30 22:56] LABS: Bedside Glucose 392 mg/dL (70-110)
--- NOTE | 2020-01-30 23:15 | CPS ---
decreased IPAP for pt comfort to 16
[2020-01-31] VITALS (15 sets, daily range): BP systolic 132–149; BP diastolic 59–91; PULSE 51–78; RESP 12–28; TEMP 36.1–37.1; O2SAT 95–99
--- NOTE | 2020-01-31 05:55 | RAD_ITS ---
STUDY: X-RAY CHEST REASON FOR EXAM: Male, 79 years old. SOB, CHF TECHNIQUE: PA and lateral views of the chest. COMPARISON: Comparison is made with prior examination dated January 29, 2020. FINDINGS: EKG electrodes are seen. Since prior study, there has been improvement in aeration of both lungs with decreased CHF. Minimal residual changes persist. There is no demonstrated pleural abnormality. Sternal cerclage wires and vascular clips are present from a prior sternotomy and coronary artery bypass graft procedure (CABG). The patient is also status post aortic valve replacement. Moderate cardiomegaly. Normal mediastinum and baudilio. Normal visualized pulmonary arteries. There is atherosclerotic calcification of the aortic arch with tortuosity. There are diffuse degenerative changes of the visualized thoracic spine. There is degenerative osteoarthritis of the bilateral shoulders. There is no demonstrated abnormality of the visualized soft tissue structures of the upper abdomen. RAD/Chest PA and Lateral IMPRESSION: Improved aeration of both lungs. Mild residual changes persist. Electronically Signed: Mahendra [place], at 12:48 EST , Service support ,
[2020-01-31 06:19] LABS: Absolute Neutrophil Count 15.1 X10^3/uL (2.0-7.7); Basophil# 0.01 X10^3/uL; Basophil% 0.1 % (0-1); Hematocrit 30.3 % (40-54); Hemoglobin 9.6 g/dL (13.0-16.5); Lymphocyte % 4.9 % (19-41); Mean Corp Hgb Conc 31.7 g/dL (32-36); Mean Corpuscular Hgb 30.1 pg (27.0-32.0); Mean Platelet Vol. 11.2 fl (6.2-12.0); Monocyte# 0.47 X10^3/uL; Monocyte% 2.9 % (0-10); NRBC Flagged by Analyzer 0 % (0-5); Neutrophil % 91.4 % (47-70); Platelet Count 156 K/mm3 (150-450); RBC Distribution Width CV 13.9 % (11.6-14.6); RBC Distribution Width SD 47.8 fl (35.1-43.9); Red Blood Count 3.19 M/mm3 (4.6-6.2); White Blood Count 16.5 K/mm3 (4.4-11.0)
[2020-01-31 06:22] LABS: Prothrombin Time (Protime)PT. 31.2 SECONDS (11.7-14.9)
[2020-01-31 06:40] LABS: Anion Gap 9 (5-15); BUN 97 mg/dL (7-18); BUN/Creat Ratio 34.6 RATIO (10-20); Calcium,Total 8.7 mg/dL (8.5-10.1); Chloride 105 mmol/L (98-107); EST Glomerular Filtration Rate 23 mL/min (>60); Est Glom Filt Rate - Afr Amer 28 mL/min (>60); Estimated Creatinine Clearance 18.91 ml/min; Glucose 348 mg/dL (74-106); Sodium Level 135 mmol/L (136-145)
[2020-01-31 07:10] LABS: Bedside Glucose 312 mg/dL (70-110)
[2020-01-31] MEDS: Insulin Lispro 100 UNIT/ML INSULN.PEN SC ×4 (08:27→21:20)
[2020-01-31] MEDS: Insulin Lispro 100 UNIT/ML INSULN.PEN 8 UNIT SC ×2 (08:28→12:18)
[2020-01-31] MEDS: levETIRAcetam 250 MG Tablet PO ×2 (08:29→21:21)
[2020-01-31] MEDS: Famotidine 20 MG Tablet PO (08:29)
[2020-01-31] MEDS: Psyllium 1 PACKET PO (08:29)
[2020-01-31] MEDS: Calcitriol 0.25 MCG Capsule PO (08:29)
[2020-01-31] MEDS: Multivitamins,Therapeutic Tablet 1 TABLET PO (08:29)
[2020-01-31] MEDS: Aspirin E.C. 81 MG Tablet PO (08:30)
[2020-01-31] MEDS: 0.9% Saline Lock 10 ML Syringe IV (08:30)
[2020-01-31] MEDS: Furosemide 40 MG/4 ML Vial IV ×2 (08:30→21:20)
[2020-01-31] MEDS: Sertraline 50 MG Tablet 25 MG PO (08:31)
[2020-01-31] MEDS: Insulin NPH Human 100 UNITS/ML PEN 10 UNITS SC (08:31)
[2020-01-31] MEDS: Allopurinol 300 MG Tablet 150 MG PO (08:32)
[2020-01-31] MEDS: Isosorbide Mononitrate 30 MG Tablet PO (08:41)
[2020-01-31 09:01] LABS: Bedside Glucose 316 mg/dL (70-110)
[2020-01-31] MEDS: Metoprolol Tartrate 25 MG Tablet 12.5 MG PO ×2 (09:01→21:21)
[2020-01-31 12:30] LABS: Bedside Glucose 414 mg/dL (70-110)
--- NOTE | 2020-01-31 12:38 | PN_ITS ---
Patient Problems: Active and Suspected Problems (Last Reviewed 01/30/20 @ 05:[address] Elio Goldsmith MD) Sepsis (Acute) Heart failure (Acute) Subjective: Seen and examined today, he appears comfortable on nasal cannula oxygen. Patient does not complain of any shortness of breath or chest pain. He denies any fevers or chills. Patient's white blood cell count today is improved. Patient appears to be diuresing well with Lasix. - Physical Exam Vitals/I&O's: Vital Signs Temp Pulse Resp BP Pulse Ox 97 F L 64 20 H 149/69 H 97 01/31/20 08:42 01/31/20 11:07 01/31/20 08:42 01/31/20 08:42 01/31/20 08:42 Oxygen Flow Rate (L/min) 3 Oxygen Delivery Method Nasal Cannula Weight: 120.1 kg Body Mass Index (BMI) 44.9 Finger Stick Blood Glucose 227 Intake and Output for Last 24 Hours 01/29/20 01/30/20 01/31/20 23:59 23:59 23:59 Intake Total 2470 / 2570 950 / 950 Output Total 1350 / 1700 2950 / 2950 Balance 1120 / 870 -1999 / General: Alert, Oriented x3, Cooperative, No apparent distress, Well developed HEENT: Atraumatic, PERRLA, EOMI, Normocephalic Oral: Moist Mucosa Neck: Supple, No JVD, Trachea Midline, Thyroid Normal Size and Texture Lungs: Clear to auscultation, No rhonchi, No wheeze, No rales, Diminished Cardiovascular: Regular rate, No murmurs, PMI Normal, Irregular Rate, No rub noted Abdomen: Bowel Sounds Present, Soft, Non Tender, Non-Distended, Obese Extremities: No clubbing, No cyanosis, Capillary Refill Less than 3 Seconds Skin: No rashes, No breakdown Musculoskeletal: No Tenderness to Palpation of Joints or Extremities Neurological: Cranial nerves II-XII grossly intact, Neuro grossly intact, Sensory exam intact to light touch and pain Psych/Mental Status: Normal Affect, Appropriate, Alert and oriented to time, place, person, mood and affect Microbiology Past 72 Hours 01/30/20 02:40 Urine, Clean Catch Urine Culture - Preliminary Culture exhibits no growth. 01/30/20 00:05 Mucosa - Nasopharyngeal Respiratory Panel (PCR) - Final 01/30/20 02:40 Urine, Clean Catch Streptococcus pneumoniae Antigen (M - Final 01/30/20 02:40 Urine, Clean Catch Legionella Antigen - Final 01/30/20 00:05 Mucosa - Nasopharyngeal Influenza Types A,B Direct FA (AYUSH) - Final Laboratory Results 01/30/20 16:58: POC Glucose 413 H 01/30/20 22:19: POC Glucose 392 H 01/31/20 05:46: PT 31.2 H, INR 3.0 01/31/20 05:46: WBC 16.5 H, RBC 3.19 L, Hgb 9.6 L, Hct 30.3 L, MCV 95.0 H, MCH 30.1, MCHC 31.7 L, RDW Std Deviation 47.8 H, RDW Coeff of Yeny 13.9, Plt Count 156, MPV 11.2, Immature Gran % (Auto) 0.700, Neut % (Auto) 91.4 H, Lymph % (Auto) 4.9 L, Posey % (Auto) 2.9, Eos % (Auto) 0.0, Baso % (Auto) 0.1, Absolute Neuts (auto) 15.1 H, Absolute Lymphs (auto) 0.80 L, Nucleated RBC % 0 01/31/20 05:46: Sodium 135 L, Potassium 5.0, Chloride 105, Carbon Dioxide 21.0, Anion Gap 9, BUN 97 H, Creatinine 2.80 H, Estim Creat Clear Calc 18.91, Est GFR (MDRD) Af Amer 28 L, Est GFR (MDRD) Non-Af 23 L, BUN/Creatinine Ratio 34.6 H, Glucose 348 H, Calcium 8.7 01/31/20 06:55: POC Glucose 312 H 01/31/20 08:23: POC Glucose 316 H 01/31/20 12:16: POC Glucose 414 H [facility] Admin: 01/31/20 08:32 Dose: 150 mg Documented by: Aspirin (Ecotrin) 81 mg PO DAILY [facility] Last Admin: 01/31/20 08:30 Dose: 81 mg Documented by: Atorvastatin Calcium (Lipitor) 40 mg PO QHS [facility] Last Admin: 01/30/20 21:53 Dose: 40 mg Documented by: Benzonatate (Tessalon Perle) 100 mg PO TID PRN PRN PRN Reason: COUGH Calcitriol (Rocaltrol) 0.25 mcg PO DAILY [facility] Last Admin: 01/31/20 08:29 Dose: 0.25 mcg Documented by: Cholecalciferol (Vitamin D (25mcg)) 1,000 unit PO DAILY [facility] Last Admin: 01/31/20 08:30 Dose: 1,000 unit Documented by: Famotidine (Pepcid) 20 mg PO DAILY [facility] Last Admin: 01/31/20 08:29 Dose: 20 mg Documented by: Furosemide (Lasix) 40 mg IV BID [facility] Last Admin: 01/31/20 08:30 Dose: 40 mg Documented by: Glucagon () 1 mg IM .X1 PRN PRN Reason: Hypoglycemia Levofloxacin (Levaquin Iv) 750 mg in 150 mls @ 100 mls/hr IV Q48H [facility] Dextrose (Dextrose 10%-Water) 250 mls @ 999 mls/hr IV .Q16M PRN; Protocol PRN Reason: HYPOGLYCEMIA Sodium Chloride () 250 mls @ 15 mls/hr IV .[id number] PRN PRN Reason: Saline Flush Sodium Chloride () 250 mls @ 15 mls/hr IV .[id number] PRN PRN Reason: Additional IVPB Infusion Insulin Human Lispro (Humalog Kwikpen (Bkc)) 0 unit SC ACHS [facility]; Protocol Last Admin: 01/31/20 12:18 Dose: 7 u Documented by: Insulin Human Lispro (Humalog Kwikpen (Bkc)) 8 unit SC TIDAC [facility] Last Admin: 01/31/20 12:18 Dose: 8 u Documented by: Insulin Human NPH (Humulin N (Bkc)) 10 units SC BID [facility] Last Admin: 01/31/20 08:31 Dose: 10 u Documented by: Isosorbide Mononitrate (Imdur) 30 mg PO DAILY [facility] Last Admin: 01/31/20 08:41 Dose: 30 mg Documented by: Labetalol HCl (Trandate) 10 mg IV Q4H PRN PRN PRN Reason: SBP > 160; or DBP > 120 Levetiracetam (Keppra Tablet) 250 mg PO BID [facility] Last Admin: 01/31/20 08:29 Dose: 250 mg Documented by: Metoprolol Tartrate (Lopressor (Beta Karyn)) 12.5 mg PO BID [facility] Last Admin: 01/31/20 09:01 Dose: 12.5 mg Documented by: Multivitamins (Multivitamin) 1 tablet PO DAILY@0800 [facility] Last Admin: 01/31/20 08:29 Dose: 1 tablet Documented by: Olanzapine (Zyprexa) 2.5 mg PO QHS [facility] Last Admin: 01/30/20 21:58 Dose: 2.5 mg Documented by: Ondansetron HCl (Zofran) 4 mg IV Q8H PRN PRN PRN Reason: NAUSEA/VOMITING Psyllium Hydrophilic Mucilloid (Metamucil) 1 packet PO DAILY [facility] Last Admin: 01/31/20 08:29 Dose: 1 packet Documented by: Sertraline HCl (Zoloft) 25 mg PO DAILY [facility] Last Admin: 01/31/20 08:31 Dose: 25 mg Documented by: Sodium Chloride () 10 - 40 ml IV UD PRN PRN Reason: SALINE FLUSH Last Admin: 01/31/20 08:30 Dose: 10 ml Documented by: Warfarin Sodium (Coumadin (Pbkc)) 2.5 mg PO SuMoWeFr@1700 [facility] Last Admin: 01/30/20 17:02 Dose: 2.5 mg Documented by: Medical Necessity - Tobacco Use Smoking Status: Former smoker Assessment/Plan All Active Problems (Last Reviewed 01/30/20 @ 05:[address] Elio Goldsmith MD) Sepsis (Acute) Heart failure (Acute) Hx of cholecystectomy (Resolved ~01/13/17) Acute respiratory failure with hypoxia (Acute) Cellulitis (Resolved) Chest pain (Resolved) Congestive heart failure (Resolved) Hypoxemia (Resolved) Moderate calcific aortic stenosis (Resolved) Ulcer of left lower extremity with fat layer exposed (Resolved) Ulcer of right lower leg (Resolved) Wound of right leg (Resolved) #1 sepsis secondary to community-acquired nvpdiziic-abzh-zdpktpls bacterial- await final blood culture results, continue IV Levaquin, I stop his aztreonam yesterday-I did not believe he needed the second antibiotic. 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
[2020-01-31] MEDS: Insulin NPH Human 100 UNITS/ML PEN 15 UNITS SC (13:53)
[2020-01-31] MEDS: Insulin Lispro 100 UNIT/ML INSULN.PEN 12 UNIT SC (17:40)
[2020-01-31 17:45] LABS: Bedside Glucose 357 mg/dL (70-110)
[2020-01-31] MEDS: Insulin NPH Human 100 UNITS/ML PEN 25 UNITS SC (21:20)
[2020-01-31] MEDS: Atorvastatin Calcium 40 MG Tablet PO (21:22)
[2020-01-31] MEDS: OLANZapine 2.5 MG Tablet PO (21:22)
[2020-01-31] MEDS: levoFLOXacin IV 750 MG/150 ML BAG 100 MG IV (21:34)
[2020-01-31 21:45] LABS: Bedside Glucose 251 mg/dL (70-110)
[2020-02-01] VITALS (12 sets, daily range): BP systolic 102–153; BP diastolic 53–71; PULSE 51–80; RESP 20; TEMP 36.4–36.6; O2SAT 91–100
[2020-02-01 06:07] LABS: International Normalized Ratio 3.3; Prothrombin Time (Protime)PT. 33.6 SECONDS (11.7-14.9)
[2020-02-01] MEDS: Insulin Lispro 100 UNIT/ML INSULN.PEN 12 UNIT SC ×3 (09:39→17:15)
[2020-02-01] MEDS: Allopurinol 300 MG Tablet 150 MG PO (09:40)
[2020-02-01] MEDS: Multivitamins,Therapeutic Tablet 1 TABLET PO (09:40)
[2020-02-01] MEDS: Aspirin E.C. 81 MG Tablet PO (09:40)
[2020-02-01] MEDS: Insulin NPH Human 100 UNITS/ML PEN 25 UNITS SC ×2 (09:40→22:58)
[2020-02-01] MEDS: Isosorbide Mononitrate 30 MG Tablet PO (09:41)
[2020-02-01] MEDS: levETIRAcetam 250 MG Tablet PO ×2 (09:41→21:31)
[2020-02-01] MEDS: Furosemide 40 MG/4 ML Vial IV (09:41)
[2020-02-01] MEDS: Metoprolol Tartrate 25 MG Tablet 12.5 MG PO ×2 (09:41→21:32)
[2020-02-01] MEDS: Calcitriol 0.25 MCG Capsule PO (09:42)
[2020-02-01] MEDS: Psyllium 1 PACKET PO (09:42)
[2020-02-01] MEDS: Sertraline 50 MG Tablet 25 MG PO (09:42)
[2020-02-01] MEDS: Famotidine 20 MG Tablet PO (09:42)
[2020-02-01] MEDS: 0.9% Saline Lock 10 ML Syringe IV (09:44)
[2020-02-01 09:51] LABS: Bedside Glucose 127 mg/dL (70-110)
[2020-02-01] MEDS: Insulin Lispro 100 UNIT/ML INSULN.PEN SC (11:52)
[2020-02-01 12:06] LABS: Bedside Glucose 177 mg/dL (70-110)
--- NOTE | 2020-02-01 15:52 | CASEMGMT ---
Call to [facility] and per Mahad, she states that pt's most recent order is for 2liters continous at this time. Green sheet left on chart for possible increased home oxygen need at discharge at this time. Manuel PHILLIPS CM
[2020-02-01 16:35] LABS: Bedside Glucose 113 mg/dL (70-110)
[2020-02-01] MEDS: Furosemide 40 MG Tablet PO (17:15)
--- NOTE | 2020-02-01 18:22 | PN_ITS ---
Patient Problems: Active and Suspected Problems (Last Reviewed 01/30/20 @ 05:[address] Elio Goldsmith MD) Sepsis (Acute) Heart failure (Acute) Subjective: States that he is breathing much better than when he came in. He still has some difficulty but not playful had when he came in. He is on his baseline home O2, and he states that he uses 3 L continuous at home. Vitals/I&O's: Vital Signs Temp Pulse Resp BP Pulse Ox 97.7 F L 51 L 20 H 102/59 L 97 02/01/20 16:00 02/01/20 16:00 02/01/20 16:00 02/01/20 16:00 02/01/20 16:00 Oxygen Flow Rate (L/min) 3 Oxygen Delivery Method Nasal Cannula Weight: 260 lb 9.382 oz Body Mass Index (BMI) 44.9 Finger Stick Blood Glucose 227 Intake and Output for Last 24 Hours 01/30/20 01/31/20 02/01/20 23:59 23:59 23:59 Intake Total 2470 / 2570 1700 / 1700 790.25 / 790.25 Output Total 1350 / 1700 4800 / 4800 1275 / 1275 Balance 1120 / 870 -3100 / -3100 -484.75 / -484.75 General: Alert, Oriented x3, Cooperative, No apparent distress HEENT: Atraumatic, PERRLA, EOMI, Normocephalic Oral: Moist Mucosa Neck: Supple, No JVD Lungs: Clear to auscultation, Normal air movement, No rhonchi, No wheeze, No rales, Diminished Cardiovascular: Regular rate, Regular Rhythm, Normal S1, Normal S2, No murmurs Abdomen: Soft, Non Tender, Non-Distended, No Hepato-splenomegaly Extremities: Capillary Refill Less than 3 Seconds, Edema - 1+ Skin: No rashes, No breakdown Neurological: Neuro grossly intact, Sensory exam intact to light touch and pain Psych/Mental Status: Normal Affect, Appropriate Microbiology Past 72 Hours 01/30/20 06:35 Blood Culture (Wb) - Anticubital Left Blood Culture - Preliminary No growth in 48 hours. 01/30/20 00:16 Blood Culture (Wb) - Venous Blood Culture - Preliminary No growth in 48 hours. 01/30/20 02:40 Urine, Clean Catch Urine Culture - Final Culture exhibits no growth. 01/30/20 00:05 Mucosa - Nasopharyngeal Respiratory Panel (PCR) - Final 01/30/20 02:40 Urine, Clean Catch Streptococcus pneumoniae Antigen (M - Final 01/30/20 02:40 Urine, Clean Catch Legionella Antigen - Final 01/30/20 00:05 Mucosa - Nasopharyngeal Influenza Types A,B Direct FA (AYUSH) - Final Laboratory Results 01/31/20 21:18: POC Glucose 251 H 02/01/20 05:33: PT 33.6 H, INR 3.3 02/01/20 09:38: POC Glucose 127 H 02/01/20 11:51: POC Glucose 177 H 02/01/20 16:30: POC Glucose 113 H Current Medications Allopurinol (Zyloprim) 150 mg PO DAILYCM [facility] Last Admin: 02/01/20 09:40 Dose: 150 mg Documented by: Aspirin (Ecotrin) 81 mg PO DAILY [facility] Last Admin: 02/01/20 09:40 Dose: 81 mg Documented by: Atorvastatin Calcium (Lipitor) 40 mg PO QHS [facility] Last Admin: 01/31/20 21:22 Dose: 40 mg Documented by: Benzonatate (Tessalon Perle) 100 mg PO TID PRN PRN PRN Reason: COUGH Calcitriol (Rocaltrol) 0.25 mcg PO DAILY [facility] Last Admin: 02/01/20 09:42 Dose: 0.25 mcg Documented by: Cholecalciferol (Vitamin D (25mcg)) 1,000 unit PO DAILY [facility] Last Admin: 02/01/20 09:42 Dose: 1,000 unit Documented by: Famotidine (Pepcid) 20 mg PO DAILY [facility] Last Admin: 02/01/20 09:42 Dose: 20 mg Documented by: Furosemide (Lasix) 40 mg PO BIDLX [facility] Last Admin: 02/01/20 17:15 Dose: 40 mg Documented by: Glucagon () 1 mg IM .X1 PRN PRN Reason: Hypoglycemia Levofloxacin (Levaquin Iv) 750 mg in 150 mls @ 100 mls/hr IV Q48H [facility] Last Infusion: 01/31/20 23:20 Dose: Infused Documented by: Dextrose (Dextrose 10%-Water) 250 mls @ 999 mls/hr IV .Q16M PRN; Protocol PRN Reason: HYPOGLYCEMIA Sodium Chloride () 250 mls @ 15 mls/hr IV .[id number] PRN PRN Reason: Saline Flush Last Infusion: 02/01/20 00:41 Dose: 0 mls/hr Documented by: Sodium Chloride () 250 mls @ 15 mls/hr IV .[id number] PRN PRN Reason: Additional IVPB Infusion Insulin Human Lispro (Humalog Kwikpen (Bkc)) 0 unit SC ACHS [facility]; Protocol Last Admin: 02/01/20 17:14 Dose: Not Given Documented by: Insulin Human Lispro (Humalog Kwikpen (Bkc)) 12 unit SC TIDAC [facility] Last Admin: 02/01/20 17:15 Dose: 12 u Documented by: Insulin Human NPH (Humulin N ([facility])) 25 units SC BID [facility] Last Admin: 02/01/20 09:40 Dose: 25 u Documented by: Isosorbide Mononitrate (Imdur) 30 mg PO DAILY [facility] Last Admin: 02/01/20 09:41 Dose: 30 mg Documented by: Labetalol HCl (Trandate) 10 mg IV Q4H PRN PRN PRN Reason: SBP > 160; or DBP > 120 Levetiracetam (Keppra Tablet) 250 mg PO BID [facility] Last Admin: 02/01/20 09:41 Dose: 250 mg Documented by: Metoprolol Tartrate (Lopressor (Beta Karyn)) 12.5 mg PO BID [facility] Last Admin: 02/01/20 09:41 Dose: 12.5 mg Documented by: Multivitamins (Multivitamin) 1 tablet PO DAILY@0800 [facility] Last Admin: 02/01/20 09:40 Dose: 1 tablet Documented by: Olanzapine (Zyprexa) 2.5 mg PO QHS [facility] Last Admin: 01/31/20 21:22 Dose: 2.5 mg Documented by: Ondansetron HCl (Zofran) 4 mg IV Q8H PRN PRN PRN Reason: NAUSEA/VOMITING Psyllium Hydrophilic Mucilloid (Metamucil) 1 packet PO DAILY [facility] Last Admin: 02/01/20 09:42 Dose: 1 packet Documented by: Sertraline HCl (Zoloft) 25 mg PO DAILY [facility] Last Admin: 02/01/20 09:42 Dose: 25 mg Documented by: Sodium Chloride () 10 - 40 ml IV UD PRN PRN Reason: SALINE FLUSH Last Admin: 02/01/20 09:44 Dose: 10 ml Documented by: Warfarin Sodium (Coumadin (Pbkc)) 2.5 mg PO SuMoWeFr@1700 [facility] Last Admin: 02/01/20 17:15 Dose: Not Given Documented by: STROKE Vital Signs/Narrative: Vital Signs Temp Pulse Resp BP Pulse Ox 02/01/20 16:00 97.7 F L 51 L 20 H 102/59 L 97 02/01/20 14:59 56 L Medical Necessity - Tobacco Use Smoking Status: Former smoker Assessment/Plan All Active Problems (Last Reviewed 01/30/20 @ 05:[address] Elio Goldsmith MD) Sepsis (Acute) Heart failure (Acute) Hx of cholecystectomy (Resolved ~01/13/17) Acute respiratory failure with hypoxia (Acute) Cellulitis (Resolved) Chest pain (Resolved) Congestive heart failure (Resolved) Hypoxemia (Resolved) Moderate calcific aortic stenosis (Resolved) Ulcer of left lower extremity with fat layer exposed (Resolved) Ulcer of right lower leg (Resolved) Wound of right leg (Resolved) 1. Sepsis secondary to community-acquired pneumonia from gram-positive organism/COPD -He is doing much better, will continue with IV Levaquin -Blood cultures, sputum cultures, and urine antigens have all been negative -We will plan to discharge him on p.o. 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 Acute on chronic diastolic CHF/chronic A. fib/HLD/CAD status post CABG -Does have an intermediate EF of 45 to 50% -Feeling much better with IV Lasix 40 mg twice daily, will transition him to p.o. this evening -Continue with aspirin and Coumadin, his INR is 3.3 today so we will hold his 2.5 Coumadin dose this evening and reevaluate an INR in the morning -Continue with losartan and Imdur -Continue with Lipitor continue with metoprolol 3. Anxiety/depression -Stable -Continue with Zoloft, olanzapine 4. DM 2/CKD 4 -Creatinine is improving, will recheck in the morning. Baseline is 2.4 and he is currently 2.8 -We will continue with his home insulin as well as a sliding scale insulin -Accu-Cheks AC at bedtime DVT: Supratherapeutic INR Inpatient E&M: 21632 Subs Hosp L2
[2020-02-01] MEDS: Atorvastatin Calcium 40 MG Tablet PO (21:31)
[2020-02-01] MEDS: OLANZapine 2.5 MG Tablet PO (21:31)
[2020-02-01 22:56] LABS: Bedside Glucose 85 mg/dL (70-110)
[2020-02-01 23:10] LABS: Bedside Glucose 107 mg/dL (70-110)
[2020-02-02] VITALS (14 sets, daily range): BP systolic 98–124; BP diastolic 47–68; PULSE 55–89; RESP 13–18; TEMP 36.4–36.6; O2SAT 94–99
[2020-02-02 07:30] LABS: Bedside Glucose 94 mg/dL (70-110)
[2020-02-02 07:44] LABS: Absolute Lymphocyte Count 3.06 X10^3/uL (0.83-4.51); Basophil# 0.03 X10^3/uL; Basophil% 0.2 % (0-1); Eosinophil# 0.28 X10^3/uL; Eosinophils% 2.2 % (0-5); Hematocrit 34.2 % (40-54); Hemoglobin 10.6 g/dL (13.0-16.5); Lymphocyte # 3.06 X10^3/ul (4.0); Lymphocyte % 24.5 % (19-41); Mean Corpuscular Volume 93.7 fL (80-94); Mean Platelet Vol. 11.2 fl (6.2-12.0); Monocyte# 1.02 X10^3/uL; Monocyte% 8.2 % (0-10); NRBC Flagged by Analyzer 0 % (0-5); Neutrophil # 8.01 X10^3/uL (2.7-7.7); Neutrophil % 64.3 % (47-70); Platelet Count 179 K/mm3 (150-450); RBC Distribution Width CV 14.3 % (11.6-14.6); RBC Distribution Width SD 48.6 fl (35.1-43.9); Red Blood Count 3.65 M/mm3 (4.6-6.2); White Blood Count 12.5 K/mm3 (4.4-11.0)
[2020-02-02 07:51] LABS: International Normalized Ratio 2.6
[2020-02-02 08:30] LABS: Anion Gap 11 (5-15); BUN 130 mg/dL (7-18); BUN/Creat Ratio 46.4 RATIO (10-20); Chloride 104 mmol/L (98-107); EST Glomerular Filtration Rate 23 mL/min (>60); Est Glom Filt Rate - Afr Amer 28 mL/min (>60); Estimated Creatinine Clearance 18.91 ml/min; Glucose 102 mg/dL (74-106); Potassium 4.8 mmol/L (3.5-5.1); Sodium Level 138 mmol/L (136-145)
[2020-02-02] MEDS: Insulin Lispro 100 UNIT/ML INSULN.PEN 12 UNIT SC ×2 (08:34→11:27)
[2020-02-02] MEDS: Multivitamins,Therapeutic Tablet 1 TABLET PO (08:36)
[2020-02-02] MEDS: Allopurinol 300 MG Tablet 150 MG PO (08:36)
[2020-02-02] MEDS: Metoprolol Tartrate 25 MG Tablet 12.5 MG PO ×2 (09:50→23:01)
[2020-02-02] MEDS: Aspirin E.C. 81 MG Tablet PO (09:54)
[2020-02-02] MEDS: Sertraline 50 MG Tablet 25 MG PO (09:54)
[2020-02-02] MEDS: levETIRAcetam 250 MG Tablet PO ×2 (09:54→23:00)
[2020-02-02] MEDS: Insulin NPH Human 100 UNITS/ML PEN 25 UNITS SC ×2 (09:55→23:00)
[2020-02-02] MEDS: Calcitriol 0.25 MCG Capsule PO (09:55)
[2020-02-02] MEDS: Famotidine 20 MG Tablet PO (09:55)
[2020-02-02] MEDS: Isosorbide Mononitrate 30 MG Tablet PO (09:55)
[2020-02-02] MEDS: Psyllium 1 PACKET PO (09:56)
--- NOTE | 2020-02-02 10:52 | PCM.PN.HOSP ---
Patient Problems: Active and Suspected Problems (Last Reviewed 01/30/20 @ 05:[address] Elio Goldsmith MD) Sepsis (Acute) Heart failure (Acute) Subjective: Feeling better today, breathing much easier. Swelling is improved is on extremities. Vitals/I&O's: Vital Signs Temp Pulse Resp BP Pulse Ox 97.9 F 70 16 107/59 L 96 02/02/20 08:29 02/02/20 09:50 02/02/20 08:29 02/02/20 08:29 02/02/20 08:29 Oxygen Flow Rate (L/min) 3 Oxygen Delivery Method Nasal Cannula Weight: 259 lb 7.745 oz Body Mass Index (BMI) 44.9 Finger Stick Blood Glucose 227 Intake and Output for Last 24 Hours 01/31/20 02/01/20 02/02/20 23:59 23:59 23:59 Intake Total 1700 / 1700 790.25 / 910.25 160 / 160 Output Total 4800 / 4800 1275 / 2100 825 / 825 Balance -3100 / -3100 -484.75 / -1189.75 -665 / -665 General: Alert, Oriented x3, Cooperative, No apparent distress HEENT: Atraumatic, PERRLA, EOMI, Normocephalic Oral: Moist Mucosa Neck: Supple, No JVD Lungs: Clear to auscultation, Normal air movement, No rhonchi, No wheeze, No rales, Diminished Cardiovascular: Regular rate, Regular Rhythm, Normal S1, Normal S2, No murmurs Abdomen: Soft, Non Tender, Non-Distended, No Hepato-splenomegaly Extremities: Capillary Refill Less than 3 Seconds, Edema - Trace Skin: No rashes, No breakdown Neurological: Neuro grossly intact, Sensory exam intact to light touch and pain Psych/Mental Status: Normal Affect, Appropriate Microbiology Past 72 Hours 01/30/20 06:35 Blood Culture (Wb) - Anticubital Left Blood Culture - Preliminary No growth in 48 hours. 01/30/20 00:16 Blood Culture (Wb) - Venous Blood Culture - Preliminary No growth in 48 hours. 01/30/20 02:40 Urine, Clean Catch Urine Culture - Final Culture exhibits no growth. 01/30/20 00:05 Mucosa - Nasopharyngeal Respiratory Panel (PCR) - Final Laboratory Results 02/01/20 11:51: POC Glucose 177 H 02/01/20 16:30: POC Glucose 113 H 02/01/20 21:23: POC Glucose 85 02/01/20 22:53: POC Glucose 107 02/02/20 07:05: PT 28.0 H, INR 2.6 02/02/20 07:05: WBC 12.5 H, RBC 3.65 L, Hgb 10.6 L, Hct 34.2 L, MCV 93.7, MCH 29.0, MCHC 31.0 L, RDW Std Deviation 48.6 H, RDW Coeff of Yeny 14.3, Plt Count 179, MPV 11.2, Immature Gran % (Auto) 0.600, Neut % (Auto) 64.3, Lymph % (Auto) 24.5, [place] % (Auto) 8.2, Eos % (Auto) 2.2, Baso % (Auto) 0.2, Absolute Neuts (auto) 8.0 H, Absolute Lymphs (auto) 3.06, Nucleated RBC % 0 02/02/20 07:05: Sodium 138, Potassium 4.8, Chloride 104, Carbon Dioxide 23.0, Anion Gap 11, BUN 130 H*, Creatinine 2.80 H, Estim Creat Clear Calc 18.91, Est GFR (MDRD) Af Amer 28 L, Est GFR (MDRD) Non-Af 23 L, BUN/Creatinine Ratio 46.4 H, Glucose 102, Calcium 9.0 02/02/20 07:24: POC Glucose 94 [facility] Admin: 02/02/20 08:36 Dose: 150 mg Documented by: Aspirin (Ecotrin) 81 mg PO DAILY [facility] Last Admin: 02/02/20 09:54 Dose: 81 mg Documented by: Atorvastatin Calcium (Lipitor) 40 mg PO QHS [facility] Last Admin: 02/01/20 21:31 Dose: 40 mg Documented by: Benzonatate (Tessalon Perle) 100 mg PO TID PRN PRN PRN Reason: COUGH Calcitriol (Rocaltrol) 0.25 mcg PO DAILY [facility] Last Admin: 02/02/20 09:55 Dose: 0.25 mcg Documented by: Cholecalciferol (Vitamin D (25mcg)) 1,000 unit PO DAILY [facility] Last Admin: 02/02/20 09:55 Dose: 1,000 unit Documented by: Famotidine (Pepcid) 20 mg PO DAILY [facility] Last Admin: 02/02/20 09:55 Dose: 20 mg Documented by: Furosemide (Lasix) 40 mg PO BIDLX [facility] Last Admin: 02/01/20 17:15 Dose: 40 mg Documented by: Glucagon () 1 mg IM .X1 PRN PRN Reason: Hypoglycemia Levofloxacin (Levaquin Iv) 750 mg in 150 mls @ 100 mls/hr IV Q48H [facility] Last Infusion: 01/31/20 23:20 Dose: Infused Documented by: Dextrose (Dextrose 10%-Water) 250 mls @ 999 mls/hr IV .Q16M PRN; Protocol PRN Reason: HYPOGLYCEMIA Sodium Chloride () 250 mls @ 15 mls/hr IV .[id number] PRN PRN Reason: Saline Flush Last Infusion: 02/01/20 00:41 Dose: 0 mls/hr Documented by: Sodium Chloride () 250 mls @ 15 mls/hr IV .[id number] PRN PRN Reason: Additional IVPB Infusion Insulin Human Lispro (Humalog Kwikpen (Bkc)) 0 unit SC ACHS [facility]; Protocol Last Admin: 02/02/20 08:34 Dose: Not Given Documented by: Insulin Human Lispro (Humalog Kwikpen (Bkc)) 12 unit SC TIDAC [facility] Last Admin: 02/02/20 08:34 Dose: 12 u Documented by: Insulin Human NPH (Humulin N (Bkc)) 25 units SC BID [facility] Last Admin: 02/02/20 09:55 Dose: 25 u Documented by: Isosorbide Mononitrate (Imdur) 30 mg PO DAILY [facility] Last Admin: 02/02/20 09:55 Dose: 30 mg Documented by: Labetalol HCl (Trandate) 10 mg IV Q4H PRN PRN PRN Reason: SBP > 160; or DBP > 120 Levetiracetam (Keppra Tablet) 250 mg PO BID [facility] Last Admin: 02/02/20 09:54 Dose: 250 mg Documented by: Metoprolol Tartrate (Lopressor (Beta Karyn)) 12.5 mg PO BID [facility] Last Admin: 02/02/20 09:50 Dose: 12.5 mg Documented by: Multivitamins (Multivitamin) 1 tablet PO DAILY@0800 [facility] Last Admin: 02/02/20 08:36 Dose: 1 tablet Documented by: Olanzapine (Zyprexa) 2.5 mg PO QHS [facility] Last Admin: 02/01/20 21:31 Dose: 2.5 mg Documented by: Ondansetron HCl (Zofran) 4 mg IV Q8H PRN PRN PRN Reason: NAUSEA/VOMITING Psyllium Hydrophilic Mucilloid (Metamucil) 1 packet PO DAILY [facility] Last Admin: 02/02/20 09:56 Dose: 1 packet Documented by: Sertraline HCl (Zoloft) 25 mg PO DAILY [facility] Last Admin: 02/02/20 09:54 Dose: 25 mg Documented by: Sodium Chloride () 10 - 40 ml IV UD PRN PRN Reason: SALINE FLUSH Last Admin: 02/01/20 09:44 Dose: 10 ml Documented by: Warfarin Sodium (Coumadin (Pbkc)) 2.5 mg PO SuMoWeFr@1700 [facility] Last Admin: 02/01/20 17:15 Dose: Not Given Documented by: STROKE Vital Signs/Narrative: Vital Signs Temp Pulse Resp BP Pulse Ox 02/02/20 09:50 70 02/02/20 08:29 97.9 F 83 16 107/59 L 96 02/02/20 07:30 94 02/02/20 07:08 55 L Medical Necessity - Tobacco Use Smoking Status: Former smoker Assessment/Plan All Active Problems (Last Reviewed 01/30/20 @ 05:[address] Elio Goldsmith MD) Sepsis (Acute) Heart failure (Acute) Hx of cholecystectomy (Resolved ~01/13/17) Acute respiratory failure with hypoxia (Acute) Cellulitis (Resolved) Chest pain (Resolved) Congestive heart failure (Resolved) Hypoxemia (Resolved) Moderate calcific aortic stenosis (Resolved) Ulcer of left lower extremity with fat layer exposed (Resolved) Ulcer of right lower leg (Resolved) Wound of right leg (Resolved) 1. Sepsis secondary to community-acquired pneumonia from gram-positive organism/COPD -He is doing much better, will continue with IV Levaquin -Blood cultures, sputum cultures, and urine antigens have all been negative -We will plan to discharge him on p.o. 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 Acute on chronic diastolic CHF/chronic A. fib/HLD/CAD status post CABG -Does have an intermediate EF of 45 to 50% -Creatinine has stabilized at 2.8, however his BUN has increased from 97-1 30 so we will back off of his diuretics today and recheck in the morning. -Continue with aspirin and Coumadin, his INR is 2.6 today, can restart his home Coumadin -Continue with losartan and Imdur -Continue with Lipitor continue with metoprolol 3. Anxiety/depression -Stable -Continue with Zoloft, olanzapine 4. DM 2/CKD 4 -Creatinine is improving, will recheck in the morning. Baseline is 2.4 and he is currently 2.8 -We will continue with his home insulin as well as a sliding scale insulin -Accu-Cheks AC at bedtime DVT: Coumadin Inpatient E&M: 90423 Subs Hosp L2
[2020-02-02 11:35] LABS: Bedside Glucose 113 mg/dL (70-110)
[2020-02-02 16:21] LABS: Bedside Glucose 89 mg/dL (70-110)
[2020-02-02] MEDS: Atorvastatin Calcium 40 MG Tablet PO (23:00)
[2020-02-02] MEDS: 0.9% Saline Lock 10 ML Syringe IV (23:00)
[2020-02-02] MEDS: OLANZapine 2.5 MG Tablet PO (23:01)
[2020-02-02] MEDS: levoFLOXacin IV 750 MG/150 ML BAG 150 MG IV (23:16)
[2020-02-02 23:25] LABS: Bedside Glucose 128 mg/dL (70-110)
[2020-02-03] VITALS (12 sets, daily range): BP systolic 108–133; BP diastolic 58–66; PULSE 60–90; RESP 15–21; TEMP 36.4–36.9; O2SAT 96–98
[2020-02-03 07:16] LABS: Anion Gap 9 (5-15); BUN 139 mg/dL (7-18); BUN/Creat Ratio 46.5 RATIO (10-20); Calcium,Total 9.2 mg/dL (8.5-10.1); Chloride 107 mmol/L (98-107); Creatinine, Serum 2.99 mg/dL (0.70-1.30); EST Glomerular Filtration Rate 22 mL/min (>60); Est Glom Filt Rate - Afr Amer 26 mL/min (>60); Estimated Creatinine Clearance 17.71 ml/min; Glucose 116 mg/dL (74-106); Potassium 4.9 mmol/L (3.5-5.1); Sodium Level 140 mmol/L (136-145)
[2020-02-03 07:17] LABS: International Normalized Ratio 2.4
[2020-02-03] MEDS: Insulin Lispro 100 UNIT/ML INSULN.PEN 12 UNIT SC ×2 (07:54→11:59)
[2020-02-03] MEDS: Multivitamins,Therapeutic Tablet 1 TABLET PO (07:56)
[2020-02-03] MEDS: Allopurinol 300 MG Tablet 150 MG PO (07:56)
[2020-02-03] MEDS: Insulin NPH Human 100 UNITS/ML PEN 25 UNITS SC ×2 (07:57→21:57)
[2020-02-03] MEDS: Aspirin E.C. 81 MG Tablet PO (07:57)
[2020-02-03 08:11] LABS: Bedside Glucose 106 mg/dL (70-110)
[2020-02-03] MEDS: Psyllium 1 PACKET PO (09:55)
[2020-02-03] MEDS: Famotidine 20 MG Tablet PO (09:57)
[2020-02-03] MEDS: Metoprolol Tartrate 25 MG Tablet 12.5 MG PO ×2 (09:57→21:59)
[2020-02-03] MEDS: levETIRAcetam 250 MG Tablet PO ×2 (09:59→21:58)
[2020-02-03] MEDS: Sertraline 50 MG Tablet 25 MG PO (09:59)
[2020-02-03] MEDS: Isosorbide Mononitrate 30 MG Tablet PO (09:59)
[2020-02-03] MEDS: Calcitriol 0.25 MCG Capsule PO (10:00)
--- NOTE | 2020-02-03 10:20 | PN_ITS ---
Patient Problems: Active and Suspected Problems (Last Reviewed 01/30/20 @ 05:[address] Elio Goldsmith MD) Sepsis (Acute) Heart failure (Acute) Subjective: Feels about the same as he did yesterday, states that his breathing is back to baseline. He is on his 3 L nasal cannula which is chronic for him at home. Vitals/I&O's: Vital Signs Temp Pulse Resp BP Pulse Ox 97.7 F L 89 16 117/65 98 02/03/20 09:50 02/03/20 09:57 02/03/20 09:50 02/03/20 09:57 02/03/20 09:50 Oxygen Flow Rate (L/min) 3 Oxygen Delivery Method Nasal Cannula Weight: 260 lb 9.382 oz Body Mass Index (BMI) 44.9 Finger Stick Blood Glucose 227 Intake and Output for Last 24 Hours 02/01/20 02/02/20 02/04/20 23:59 23:59 00:59 Intake Total 790.25 / 910.25 1560.25 / 1560.25 193.33 / 193.33 Output Total 1275 / 2100 1025 / 1025 325 / 325 Balance -484.75 / -1189.75 535.25 / 535.25 -131.67 / -131.67 General: Alert, Oriented x3, Cooperative, No apparent distress HEENT: Atraumatic, PERRLA, EOMI, Normocephalic Oral: Moist Mucosa Neck: Supple, No JVD Lungs: Clear to auscultation, Normal air movement, No rhonchi, No wheeze, No rales, Diminished Cardiovascular: Regular rate, Regular Rhythm, Normal S1, Normal S2, No murmurs Abdomen: Soft, Non Tender, Non-Distended, No Hepato-splenomegaly Extremities: Capillary Refill Less than 3 Seconds, Edema - Trace Skin: No rashes, No breakdown Neurological: Neuro grossly intact, Sensory exam intact to light touch and pain Psych/Mental Status: Normal Affect, Appropriate Microbiology Past 72 Hours 01/30/20 06:35 Blood Culture (Wb) - Anticubital Left Blood Culture - Preliminary No growth in 48 hours. 01/30/20 00:16 Blood Culture (Wb) - Venous Blood Culture - Preliminary No growth in 48 hours. 01/30/20 02:40 Urine, Clean Catch Urine Culture - Final Culture exhibits no growth. Laboratory Results 02/02/20 11:23: POC Glucose 113 H 02/02/20 16:12: POC Glucose 89 02/02/20 22:56: POC Glucose 128 H 02/03/20 05:48: PT 26.0 H, INR 2.4 02/03/20 05:48: Sodium 140, Potassium 4.9, Chloride 107, Carbon Dioxide 24.0, Anion Gap 9, BUN 139 H*, Creatinine 2.99 H, Estim Creat Clear Calc 17.71, Est GFR (MDRD) Af Amer 26 L, Est GFR (MDRD) Non-Af 22 L, BUN/Creatinine Ratio 46.5 H , Glucose 116 H, Calcium 9.2 02/03/20 07:50: POC Glucose 106 Current Medications Allopurinol (Zyloprim) 150 mg PO DAILYCM [facility] Last Admin: 02/03/20 07:56 Dose: 150 mg Documented by: Aspirin (Ecotrin) 81 mg PO DAILY [facility] Last Admin: 02/03/20 07:57 Dose: 81 mg Documented by: Atorvastatin Calcium (Lipitor) 40 mg PO QHS [facility] Last Admin: 02/02/20 23:00 Dose: 40 mg Documented by: Benzonatate (Tessalon Perle) 100 mg PO TID PRN PRN PRN Reason: COUGH Calcitriol (Rocaltrol) 0.25 mcg PO DAILY [facility] Last Admin: 02/03/20 10:00 Dose: 0.25 mcg Documented by: Cholecalciferol (Vitamin D (25mcg)) 1,000 unit PO DAILY [facility] Last Admin: 02/03/20 10:00 Dose: 1,000 unit Documented by: Famotidine (Pepcid) 20 mg PO DAILY [facility] Last Admin: 02/03/20 09:57 Dose: 20 mg Documented by: Glucagon () 1 mg IM .X1 PRN PRN Reason: Hypoglycemia Levofloxacin (Levaquin Iv) 750 mg in 150 mls @ 100 mls/hr IV Q48H [facility] Last Infusion: 02/03/20 00:16 Dose: Infused Documented by: Dextrose (Dextrose 10%-Water) 250 mls @ 999 mls/hr IV .Q16M PRN; Protocol PRN Reason: HYPOGLYCEMIA Sodium Chloride () 250 mls @ 15 mls/hr IV .[id number] PRN PRN Reason: Saline Flush Last Infusion: 02/03/20 00:30 Dose: 0 mls/hr Documented by: Sodium Chloride () 250 mls @ 15 mls/hr IV .[id number] PRN PRN Reason: Additional IVPB Infusion Insulin Human Lispro (Humalog Kwikpen (Bkc)) 0 unit SC ACHS [facility]; Protocol Last Admin: 02/03/20 07:51 Dose: Not Given Documented by: Insulin Human Lispro (Humalog Kwikpen (Bk)) 12 unit SC TIDAC [facility] Last Admin: 02/03/20 07:54 Dose: 12 u Documented by: Insulin Human NPH (Humulin N ([facility])) 25 units SC BID [facility] Last Admin: 02/03/20 07:57 Dose: 25 u Documented by: Isosorbide Mononitrate (Imdur) 30 mg PO DAILY [facility] Last Admin: 02/03/20 09:59 Dose: 30 mg Documented by: Labetalol HCl (Trandate) 10 mg IV Q4H PRN PRN PRN Reason: SBP > 160; or DBP > 120 Levetiracetam (Keppra Tablet) 250 mg PO BID [facility] Last Admin: 02/03/20 09:59 Dose: 250 mg Documented by: Metoprolol Tartrate (Lopressor (Beta Karyn)) 12.5 mg PO BID [facility] Last Admin: 02/03/20 09:57 Dose: 12.5 mg Documented by: Multivitamins (Multivitamin) 1 tablet PO DAILY@0800 [facility] Last Admin: 02/03/20 07:56 Dose: 1 tablet Documented by: Olanzapine (Zyprexa) 2.5 mg PO QHS [facility] Last Admin: 02/02/20 23:01 Dose: 2.5 mg Documented by: Ondansetron HCl (Zofran) 4 mg IV Q8H PRN PRN PRN Reason: NAUSEA/VOMITING Psyllium Hydrophilic Mucilloid (Metamucil) 1 packet PO DAILY [facility] Last Admin: 02/03/20 09:55 Dose: 1 packet Documented by: Sertraline HCl (Zoloft) 25 mg PO DAILY [facility] Last Admin: 02/03/20 09:59 Dose: 25 mg Documented by: Sodium Chloride () 10 - 40 ml IV UD PRN PRN Reason: SALINE FLUSH Last Admin: 02/02/20 23:00 Dose: 10 ml Documented by: Warfarin Sodium (Coumadin (Pbkc)) 2.5 mg PO SuMoWeFr@1700 [facility] Last Admin: 02/01/20 17:15 Dose: Not Given Documented by: STROKE Vital Signs/Narrative: Vital Signs Temp Pulse Resp BP Pulse Ox 02/03/20 09:57 89 117/65 02/03/20 09:50 97.7 F L 89 16 117/65 98 02/03/20 08:16 97 02/03/20 07:02 60 Medical Necessity - Tobacco Use Smoking Status: Former smoker Assessment/Plan All Active Problems (Last Reviewed 01/30/20 @ 05:[address] Elio Goldsmith MD) Sepsis (Acute) Heart failure (Acute) Hx of cholecystectomy (Resolved ~01/13/17) Acute respiratory failure with hypoxia (Acute) Cellulitis (Resolved) Chest pain (Resolved) Congestive heart failure (Resolved) Hypoxemia (Resolved) Moderate calcific aortic stenosis (Resolved) Ulcer of left lower extremity with fat layer exposed (Resolved) Ulcer of right lower leg (Resolved) Wound of right leg (Resolved) 1. Sepsis secondary to community-acquired pneumonia from gram-positive organism/COPD -He is doing much better, will continue with IV Levaquin -Blood cultures, sputum cultures, and urine antigens have all been negative -We will plan to discharge him on p.o. Levaquin -He states that his director [facility] sclerosis [facility] feels that he does not have COPD, and with the lack of wheezing will not start a steroid at this time 2. Acute on chronic diastolic CHF/chronic A. fib/HLD/CAD status post CABG -Does have an intermediate EF of 45 to 50% -Creatinine has stabilized at 2.8, however his BUN has increased 139, will obtain urine electrolytes and c/s nephrology -Continue with aspirin and Coumadin, his INR is 2.4 today, c/w coumadin -Continue with Imdur -Continue with Lipitor continue with metoprolol 3. Anxiety/depression -Stable -Continue with Zoloft, olanzapine 4. DM 2/CKD 4 -Baseline is 2.4 and he is currently 2.99 -We will continue with his home insulin as well as a sliding scale insulin -Accu-Cheks AC at bedtime DVT: Coumadin Inpatient E&M: [id number] Subs Hosp L2
[2020-02-03 11:30] LABS: Bedside Glucose 133 mg/dL (70-110)
[2020-02-03 16:20] LABS: Bedside Glucose 88 mg/dL (70-110)
[2020-02-03 16:33] LABS: Urine Chloride < 10 mmol/L (Not Establ.); Urine Sodium 26 mmol/L (Not Establ.)
--- NOTE | 2020-02-03 18:35 | CON.PCM_ITS ---
Consultation - Renal 02/03/20 PCP/ Referring MD: Requesting physician: Dr. Lucas Primary care physician: Romaine Velazquez MD Reason for Consultation:: DARRYL on CKD - History of Present Illness History of Present Illness: The patient is a 79 year old M past history significant for type 2 diabetes mellitus, hypertension, coronary artery disease post CABG x 2 (most recently in 2016), hyperlipidemia, sleep apnea, gout, and aortic valve disease status post aortic valve replacement in 2016. She also has a history of chronic kidney disease stage IV secondary to diabetic nephropathy. He is followed as an outpa tient by Dr. Haroon Han, at their [place] office. The patient presented with progressive increase in dyspnea. He denies current CP, nausea, or increasing edema. The patient was diagnosed with acute hypoxic respiratory failure thought to be due to pneumonia and HFrEF. Thept had a similar presentation in August 2019 although his real function was better and remained stable during the admission then. Nephrology is asked to see the patient because elevated SCr at 2.99 mg/dL. SCr was 2.96 mg/dL on admission (01/30/20). SCr was stable at 2.80 mg/dL on 01/31/20 and 02/02/20. SCr increased to 2.99 mg/dL today with BUN of 139. SCr has been around 2.4-2.5 mg/dL at baseline (October 2019-November 2019). The pt is still more SOB than baseline. There is no edema of LE. His weight has only decreased from 120.1 kg on 01/31/20 to 118.2 mg/dL today. He denies CP, nausea, anorexia or LUTS. Patient had not been on NSAIDs. There is no exposure to IV contrast. - Allergies Allergies: Allergies Penicillins [PCN] Allergy (Verified 01/17/20 13:33) Swelling - Current Medications Current Medications: Current Medic[facility] Admin: 02/03/20 07:56 Dose: 150 mg Documented by: Aspirin (Ecotrin) 81 mg PO DAILY [facility] Last Admin: 02/03/20 07:57 Dose: 81 mg Documented by: Atorvastatin Calcium (Lipitor) 40 mg PO QHS [facility] Last Admin: 02/02/20 23:00 Dose: 40 mg Documented by: Benzonatate (Tessalon Perle) 100 mg PO TID PRN PRN PRN Reason: COUGH Calcitriol (Rocaltrol) 0.25 mcg PO DAILY [facility] Last Admin: 02/03/20 10:00 Dose: 0.25 mcg Documented by: Cholecalciferol (Vitamin D (25mcg)) 1,000 unit PO DAILY [facility] Last Admin: 02/03/20 10:00 Dose: 1,000 unit Documented by: Famotidine (Pepcid) 20 mg PO DAILY [facility] Last Admin: 02/03/20 09:57 Dose: 20 mg Documented by: Glucagon () 1 mg IM .X1 PRN PRN Reason: Hypoglycemia Levofloxacin (Levaquin Iv) 750 mg in 150 mls @ 100 mls/hr IV Q48H [facility] Last Infusion: 02/03/20 00:16 Dose: Infused Documented by: Dextrose (Dextrose 10%-Water) 250 mls @ 999 mls/hr IV .Q16M PRN; Protocol PRN Reason: HYPOGLYCEMIA Sodium Chloride () 250 mls @ 15 mls/hr IV .[id number] PRN PRN Reason: Saline Flush Last Infusion: 02/03/20 00:30 Dose: 0 mls/hr Documented by: Sodium Chloride () 250 mls @ 15 mls/hr IV .[id number] PRN PRN Reason: Additional IVPB Infusion Insulin Human Lispro (Humalog Kwikpen (Bkc)) 0 unit SC ACHS [facility]; Protocol Last Admin: 02/03/20 16:11 Dose: Not Given Documented by: Insulin Human Lispro (Humalog Kwikpen (Bkc)) 12 unit SC TIDAC [facility] Last Admin: 02/03/20 16:12 Dose: Not Given Documented by: Insulin Human NPH (Humulin N (Bkc)) 25 units SC BID [facility] Last Admin: 02/03/20 07:57 Dose: 25 u Documented by: Isosorbide Mononitrate (Imdur) 30 mg PO DAILY [facility] Last Admin: 02/03/20 09:59 Dose: 30 mg Documented by: Labetalol HCl (Trandate) 10 mg IV Q4H PRN PRN PRN Reason: SBP > 160; or DBP > 120 Levetiracetam (Keppra Tablet) 250 mg PO BID [facility] Last Admin: 02/03/20 09:59 Dose: 250 mg Documented by: Metoprolol Tartrate (Lopressor (Beta Karyn)) 12.5 mg PO BID [facility] Last Admin: 02/03/20 09:57 Dose: 12.5 mg Documented by: Multivitamins (Multivitamin) 1 tablet PO DAILY@0800 [facility] Last Admin: 02/03/20 07:56 Dose: 1 tablet Documented by: Olanzapine (Zyprexa) 2.5 mg PO QHS [facility] Last Admin: 02/02/20 23:01 Dose: 2.5 mg Documented by: Ondansetron HCl (Zofran) 4 mg IV Q8H PRN PRN PRN Reason: NAUSEA/VOMITING Psyllium Hydrophilic Mucilloid (Metamucil) 1 packet PO DAILY [facility] Last Admin: 02/03/20 09:55 Dose: 1 packet Documented by: Sertraline HCl (Zoloft) 25 mg PO DAILY [facility] Last Admin: 02/03/20 09:59 Dose: 25 mg Documented by: Sodium Chloride () 10 - 40 ml IV UD PRN PRN Reason: SALINE FLUSH Last Admin: 02/02/20 23:00 Dose: 10 ml Documented by: Warfarin Sodium (Coumadin (Pbkc)) 2.5 mg PO SuMoWeFr@1700 [facility] Last Admin: 02/03/20 16:14 Dose: 2.5 mg Documented by: - Past Medical History Past Medical History (Chronic Problems): Chronic Problems (Last Reviewed 01/30/20 @ 05:[address] Elio Goldsmith MD) CHF (congestive heart failure) (Chronic) Obstructive sleep apnea (Chronic) Type 2 diabetes mellitus without complications (Chronic) Anemia (Chronic) TIA (transient ischemic attack) (Chronic) Ocular migraine (Chronic) AUTUMN (obstructive sleep apnea) (Chronic) Acute exacerbation of CHF (congestive heart failure) (Chronic) Chronic atrial fibrillation (Chronic) On coumadin, managed by PCP Atherosclerosis of coronary artery bypass graft without angina pectoris (Chronic) Redo CABG x 3 SVG-LAD, SVG OM of Cx, SVG- PDA of RCA and aortic valve replacement with #25 Pietro-Sheppard valve. 02/24/2016 CABG x 4 OAKLEY-D1, SVG-Distal LAD, SVG-Lat CX, SVG-RCA 12/15/98 Non-rheumatic aortic stenosis (Chronic) H/O aortic valve replacement (Chronic) aortic valve replacement with #25 Pietro-Sheppard valve. 02/24/2016 H/O coronary artery bypass surgery (Chronic ~02/24/16) Redo CABG x 3 SVG-LAD, SVG OM of Cx, SVG- PDA of RCA and aortic valve replacement with #25 Pietro-Sheppard valve. 02/24/2016 CABG x 4 OAKLEY-D1, SVG-Distal LAD, SVG-Lat CX, SVG-RCA 12/15/98 Hypertension (Chronic) Left bundle branch block (Chronic) Localized edema (Chronic) Venous insufficiency of both lower extremities (Chronic) Hyperlipemia (Chronic) Chronic renal failure, stage 3 (moderate) (Chronic) Morbid obesity with BMI of 45.0-49.9, adult (Chronic) - Past Surgical History Surgical History: cataract, coronary bypass surgery - x 3, - - Aortic valve replacement, bilateral carpal tunnel release, PICC line. - Social History Smoking Status: Former smoker - Family History Maternal Family History: Family History (Last Reviewed 01/30/20 @ 05:[address] Elio Goldsmith MD) Father Myocardial infarction Mother CVA (cerebral vascular accident) Brother CAD (coronary artery disease) Diabetes History Items: Stroke - mother at age 60 from stroke Sibling Family History: Family History (Last Reviewed 01/30/20 @ 05:[address] Elio Goldsmith MD) Father Myocardial infarction Mother CVA (cerebral vascular accident) Brother CAD (coronary artery disease) Diabetes History Items: Seizures - recently diagnosed Review of Systems Constitutional: Reports: Malaise. Denies: Anorexia, Chills, Fever, Weight Change Eyes: Denies: Blurred vision, Pain, Redness HEENT: Denies: Head Aches, Sinus Congestion, Sinus Drainage Cardiovascular: Denies: Chest Pain, Claudication, Edema, Orthopnea, Palpitations Respiratory: Reports: Cough, Shortness of Breath, Shortness of breath upon exertion. Denies: Sputum production Gastrointestinal: Denies: Abdominal Pain, Nausea, Vomiting Genitourinary: Denies: Dysuria, Frequency, Hematuria, Hesitancy, Retention, Urgency Musculoskeletal: Denies: Joint Pain, Joint Tenderness Skin: Denies: Rash, Wounds Neurological: Denies: Numbness, Tingling, Focal weakness Psychiatric: Denies: Anxiety, Depression, Homicidal Ideations, Suicidal Ideations Hematologic/ Lymphatic: Denies: Easy Bruising, Easy Bleeding Patient Problems: Active and Suspected Problems (Last Reviewed 01/30/20 @ 05:[address] Elio Goldsmith MD) Sepsis (Acute) Heart failure (Acute) - Physical Exam Vitals/I&O's: Vital Signs Temp Pulse Resp BP Pulse Ox 97.5 F L 83 15 108/66 96 02/03/20 15:50 02/03/20 15:50 02/03/20 15:50 02/03/20 15:50 02/03/20 15:50 Oxygen Flow Rate (L/min) 3 Oxygen Delivery Method Nasal Cannula Weight: 118.2 kg Body Mass Index (BMI) 44.9 Finger Stick Blood Glucose 227 Intake and Output for Last 24 Hours 02/01/20 02/02/20 02/04/20 23:59 23:59 00:59 Intake Total 790.25 / 910.25 1560.25 / 1560.25 1393.33 / 1393.33 Output Total 1275 / 2100 1025 / 1025 665 / 665 Balance -484.75 / -1189.75 535.25 / 535.25 728.33 / 728.33 General: Alert, Oriented x3, Cooperative HEENT: Atraumatic, PERRLA, EOMI Oral: Moist Mucosa Neck: Supple Lungs: Rales - at bases BL Cardiovascular: Normal S1, Normal S2, No murmurs Abdomen: Bowel Sounds Present, Soft, Non Tender, Obese Extremities: No clubbing, No edema Skin: No rashes Musculoskeletal: No Tenderness to Palpation of Joints or Extremities Neurological: Cranial nerves II-XII grossly intact Psych/Mental Status: Normal Affect Microbiology Past 72 Hours 01/30/20 06:35 Blood Culture (Wb) - Anticubital Left Blood Culture - Preliminary No growth in 48 hours. 01/30/20 00:16 Blood Culture (Wb) - Venous Blood Culture - Preliminary No growth in 48 hours. 01/30/20 02:40 Urine, Clean Catch Urine Culture - Final Culture exhibits no growth. Laboratory Results 02/02/20 22:56: POC Glucose 128 H 02/03/20 05:48: PT 26.0 H, INR 2.4 02/03/20 05:48: Sodium 140, Potassium 4.9, Chloride 107, Carbon Dioxide 24.0, Anion Gap 9, BUN 139 H*, Creatinine 2.99 H, Estim Creat Clear Calc 17.71, Est GFR (MDRD) Af Amer 26 L, Est GFR (MDRD) Non-Af 22 L, BUN/Creatinine Ratio 46.5 H , Glucose 116 H, Calcium 9.2 02/03/20 07:50: POC Glucose 106 02/03/20 11:12: POC Glucose 133 H 02/03/20 15:55: Urine Creatinine 120.00 02/03/20 15:55: Ur Random Sodium 26, Urine Potassium 59.0, Urine Chloride < 10 02/03/20 16:09: POC Glucose 88 Current Medications Allopurinol (Zyloprim) 150 mg PO DAILYCM [facility] Last Admin: 02/03/20 07:56 Dose: 150 mg Documented by: Aspirin (Ecotrin) 81 mg PO DAILY [facility] Last Admin: 02/03/20 07:57 Dose: 81 mg Documented by: Atorvastatin Calcium (Lipitor) 40 mg PO QHS [facility] Last Admin: 02/02/20 23:00 Dose: 40 mg Documented by: Benzonatate (Tessalon Perle) 100 mg PO TID PRN PRN PRN Reason: COUGH Calcitriol (Rocaltrol) 0.25 mcg PO DAILY [facility] Last Admin: 02/03/20 10:00 Dose: 0.25 mcg Documented by: Cholecalciferol (Vitamin D (25mcg)) 1,000 unit PO DAILY [facility] Last Admin: 02/03/20 10:00 Dose: 1,000 unit Documented by: Famotidine (Pepcid) 20 mg PO DAILY [facility] Last Admin: 02/03/20 09:57 Dose: 20 mg Documented by: Glucagon () 1 mg IM .X1 PRN PRN Reason: Hypoglycemia Levofloxacin (Levaquin Iv) 750 mg in 150 mls @ 100 mls/hr IV Q48H [facility] Last Infusion: 02/03/20 00:16 Dose: Infused Documented by: Dextrose (Dextrose 10%-Water) 250 mls @ 999 mls/hr IV .Q16M PRN; Protocol PRN Reason: HYPOGLYCEMIA Sodium Chloride () 250 mls @ 15 mls/hr IV .[id number] PRN PRN Reason: Saline Flush Last Infusion: 02/03/20 00:30 Dose: 0 mls/hr Documented by: Sodium Chloride () 250 mls @ 15 mls/hr IV .[id number] PRN PRN Reason: Additional IVPB Infusion Insulin Human Lispro (Humalog Kwikpen (Bk)) 0 unit SC ACHS [facility]; Protocol Last Admin: 02/03/20 16:11 Dose: Not Given Documented by: Insulin Human Lispro (Humalog Kwikpen (Bk)) 12 unit SC TIDAC [facility] Last Admin: 02/03/20 16:12 Dose: Not Given Documented by: Insulin Human NPH (Humulin N ([facility])) 25 units SC BID [facility] Last Admin: 02/03/20 07:57 Dose: 25 u Documented by: Isosorbide Mononitrate (Imdur) 30 mg PO DAILY [facility] Last Admin: 02/03/20 09:59 Dose: 30 mg Documented by: Labetalol HCl (Trandate) 10 mg IV Q4H PRN PRN PRN Reason: SBP > 160; or DBP > 120 Levetiracetam (Keppra Tablet) 250 mg PO BID [facility] Last Admin: 02/03/20 09:59 Dose: 250 mg Documented by: Metoprolol Tartrate (Lopressor (Beta Karyn)) 12.5 mg PO BID [facility] Last Admin: 02/03/20 09:57 Dose: 12.5 mg Documented by: Multivitamins (Multivitamin) 1 tablet PO DAILY@0800 [facility] Last Admin: 02/03/20 07:56 Dose: 1 tablet Documented by: Olanzapine (Zyprexa) 2.5 mg PO QHS [facility] Last Admin: 02/02/20 23:01 Dose: 2.5 mg Documented by: Ondansetron HCl (Zofran) 4 mg IV Q8H PRN PRN PRN Reason: NAUSEA/VOMITING Psyllium Hydrophilic Mucilloid (Metamucil) 1 packet PO DAILY [facility] Last Admin: 02/03/20 09:55 Dose: 1 packet Documented by: Sertraline HCl (Zoloft) 25 mg PO DAILY [facility] Last Admin: 02/03/20 09:59 Dose: 25 mg Documented by: Sodium Chloride () 10 - 40 ml IV UD PRN PRN Reason: SALINE FLUSH Last Admin: 02/02/20 23:00 Dose: 10 ml Documented by: Warfarin Sodium (Coumadin (Pbkc)) 2.5 mg PO SuMoWeFr@1700 [facility] Last Admin: 02/03/20 16:14 Dose: 2.5 mg Documented by: Assessment/Plan All Active Problems (Last Reviewed 01/30/20 @ 05:[address] Elio Goldsmith MD) Sepsis (Acute) Heart failure (Acute) Hx of cholecystectomy (Resolved ~01/13/17) Acute respiratory failure with hypoxia (Acute) Cellulitis (Resolved) Chest pain (Resolved) Congestive heart failure (Resolved) Hypoxemia (Resolved) Moderate calcific aortic stenosis (Resolved) Ulcer of left lower extremity with fat layer exposed (Resolved) Ulcer of right lower leg (Resolved) Wound of right leg (Resolved) 1. Acute kidney injury on chronic kidney disease stage 4. 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 DARRYL (fluctuation in SCr) is likely due to cardiorenal syndrome +/- progression of CKD. No other explanation for elevated BUN asides from prerenal DARRYL (no evidence of UGI bleed or use of steroid). Urine FENa is <1%. Lasix is on hold for now-agree. However, we will have to restart Lasix at some point. If BUN/SCr is not better in the next 1-2 days, I would restart Lasix (especially if weight increases). He may eventually need to start HD soon. 2. Acute hypoxic respiratory failure. Secondary to pneumonia and HFrEF. On Levaquin. Dose is OK for the current CrCl. Continue to reassess volume status (follow weight, clinical exam). Holding Lasix today-agree. 3. T2DM. Glycemic control per hospital medicine service.
[2020-02-03] MEDS: OLANZapine 2.5 MG Tablet PO (21:59)
[2020-02-03] MEDS: Atorvastatin Calcium 40 MG Tablet PO (21:59)
[2020-02-03 22:40] LABS: Bedside Glucose 98 mg/dL (70-110)
[2020-02-04] VITALS (10 sets, daily range): BP systolic 91–114; BP diastolic 50–62; PULSE 59–82; RESP 16–18; TEMP 36.3–36.5; O2SAT 96–100
[2020-02-04] MEDS: Acetaminophen 325 MG Tablet 650 MG PO (04:06)
[2020-02-04 06:50] LABS: Anion Gap 6 (5-15); BUN 139 mg/dL (7-18); BUN/Creat Ratio 46.5 RATIO (10-20); Chloride 112 mmol/L (98-107); Creatinine, Serum 2.99 mg/dL (0.70-1.30); EST Glomerular Filtration Rate 22 mL/min (>60); Est Glom Filt Rate - Afr Amer 26 mL/min (>60); Estimated Creatinine Clearance 17.71 ml/min; Glucose 169 mg/dL (74-106); Potassium 4.9 mmol/L (3.5-5.1); Sodium Level 139 mmol/L (136-145)
[2020-02-04] MEDS: Multivitamins,Therapeutic Tablet 1 TABLET PO (08:11)
[2020-02-04] MEDS: Insulin Lispro 100 UNIT/ML INSULN.PEN 12 UNIT SC ×3 (08:11→17:17)
[2020-02-04] MEDS: Allopurinol 300 MG Tablet 150 MG PO (08:13)
[2020-02-04] MEDS: Aspirin E.C. 81 MG Tablet PO (08:13)
[2020-02-04] MEDS: Insulin NPH Human 100 UNITS/ML PEN 25 UNITS SC (08:14)
[2020-02-04 08:26] LABS: Bedside Glucose 134 mg/dL (70-110)
[2020-02-04] MEDS: levETIRAcetam 250 MG Tablet PO ×2 (09:53→22:25)
[2020-02-04] MEDS: Isosorbide Mononitrate 30 MG Tablet PO (09:53)
[2020-02-04] MEDS: Metoprolol Tartrate 25 MG Tablet 12.5 MG PO ×2 (09:53→22:25)
[2020-02-04] MEDS: Famotidine 20 MG Tablet PO (09:54)
[2020-02-04] MEDS: Psyllium 1 PACKET PO (09:55)
[2020-02-04] MEDS: Sertraline 50 MG Tablet 25 MG PO (09:55)
[2020-02-04] MEDS: Calcitriol 0.25 MCG Capsule PO (09:56)
--- NOTE | 2020-02-04 10:20 | PCM.PN.REN ---
Patient Problems: Active and Suspected Problems (Last Reviewed 01/30/20 @ 05:[address] Elio Goldsmith MD) Sepsis (Acute) Heart failure (Acute) Subjective: Pt said his breathing is the same . Remains on 3 l/m NC No itchiness. No CP No Nausea No vomiting - Physical Exam Vitals/I&O's: Vital Signs Temp Pulse Resp BP Pulse Ox 97.5 F L 77 16 108/62 97 02/04/20 09:51 02/04/20 09:53 02/04/20 09:51 02/04/20 09:51 02/04/20 09:51 Oxygen Flow Rate (L/min) 3 Oxygen Delivery Method Nasal Cannula Weight: 118.3 kg Body Mass Index (BMI) 44.9 Finger Stick Blood Glucose 227 Intake and Output for Last 24 Hours 02/02/20 02/03/20 02/04/20 22:59 23:59 23:59 Intake Total 100 / 100 Output Total 350 / 350 Balance -250 / -250 General: Alert, Oriented x3 HEENT: Atraumatic Oral: Moist Mucosa Neck: Supple, No JVD Lungs: - - B/L lungs crackles. Cardiovascular: Regular rate, Regular Rhythm, Normal S1, Normal S2 Extremities: No clubbing, No cyanosis, No edema Musculoskeletal: No Tenderness to Palpation of Joints or Extremities Lymphatic: No Cervical, Supraclavicular, or Inguinal Adenopathy Neurological: Cranial nerves II-XII grossly intact, Neuro grossly intact Psych/Mental Status: Appropriate Microbiology Past 72 Hours 01/30/20 06:35 Blood Culture (Wb) - Anticubital Left Blood Culture - Final No growth in 5 days. 01/30/20 00:16 Blood Culture (Wb) - Venous Blood Culture - Final No growth in 5 days. 01/30/20 02:40 Urine, Clean Catch Urine Culture - Final Culture exhibits no growth. Laboratory Results 02/03/20 11:12: POC Glucose 133 H 02/03/20 15:55: Urine Creatinine 120.00 02/03/20 15:55: Ur Random Sodium 26, Urine Potassium 59.0, Urine Chloride < 10 02/03/20 16:09: POC Glucose 88 02/03/20 21:55: POC Glucose 98 02/04/20 05:40: Sodium 139, Potassium 4.9, Chloride 112 H, Carbon Dioxide 21.0, Anion Gap 6, BUN 139 H*, Creatinine 2.99 H, Estim Creat Clear Calc 17.71, Est GFR (MDRD) Af Amer 26 L, Est GFR (MDRD) Non-Af 22 L, BUN/Creatinine Ratio 46.5 H, Glucose 169 H, Calcium 9.0 02/04/20 08:08: POC Glucose 134 H Current Medications Acetaminophen (Tylenol) 650 mg PO Q6H PRN PRN PRN Reason: Pain Score 1-10/10 Last Admin: 02/04/20 04:06 Dose: 650 mg Documented by: Allopurinol (Zyloprim) 150 mg PO DAILYCM [facility] Last Admin: 02/04/20 08:13 Dose: 150 mg Documented by: Aspirin (Ecotrin) 81 mg PO DAILY [facility] Last Admin: 02/04/20 08:13 Dose: 81 mg Documented by: Atorvastatin Calcium (Lipitor) 40 mg PO QHS [facility] Last Admin: 02/03/20 21:59 Dose: 40 mg Documented by: Benzonatate (Tessalon Perle) 100 mg PO TID PRN PRN PRN Reason: COUGH Calcitriol (Rocaltrol) 0.25 mcg PO DAILY [facility] Last Admin: 02/04/20 09:56 Dose: 0.25 mcg Documented by: Cholecalciferol (Vitamin D (25mcg)) 1,000 unit PO DAILY [facility] Last Admin: 02/04/20 09:55 Dose: 1,000 unit Documented by: Famotidine (Pepcid) 20 mg PO DAILY [facility] Last Admin: 02/04/20 09:54 Dose: 20 mg Documented by: Glucagon () 1 mg IM .X1 PRN PRN Reason: Hypoglycemia Levofloxacin (Levaquin Iv) 750 mg in 150 mls @ 100 mls/hr IV Q48H [facility] Last Infusion: 02/03/20 00:16 Dose: Infused Documented by: Dextrose (Dextrose 10%-Water) 250 mls @ 999 mls/hr IV .Q16M PRN; Protocol PRN Reason: HYPOGLYCEMIA Sodium Chloride () 250 mls @ 15 mls/hr IV .[id number] PRN PRN Reason: Saline Flush Last Infusion: 02/03/20 19:31 Dose: Infused Documented by: Sodium Chloride () 250 mls @ 15 mls/hr IV .[id number] PRN PRN Reason: Additional IVPB Infusion Insulin Human Lispro (Humalog Kwikpen (Bk)) 0 unit SC ACHS [facility]; Protocol Last Admin: 02/04/20 08:10 Dose: Not Given Documented by: Insulin Human Lispro (Humalog Kwikpen (Bk)) 12 unit SC TIDAC [facility] Last Admin: 02/04/20 08:11 Dose: 12 u Documented by: Insulin Human NPH (Humulin N ([facility])) 25 units SC BID [facility] Last Admin: 02/04/20 08:14 Dose: 25 u Documented by: Isosorbide Mononitrate (Imdur) 30 mg PO DAILY [facility] Last Admin: 02/04/20 09:53 Dose: 30 mg Documented by: Labetalol HCl (Trandate) 10 mg IV Q4H PRN PRN PRN Reason: SBP > 160; or DBP > 120 Levetiracetam (Keppra Tablet) 250 mg PO BID [facility] Last Admin: 02/04/20 09:53 Dose: 250 mg Documented by: Metoprolol Tartrate (Lopressor (Beta Karyn)) 12.5 mg PO BID [facility] Last Admin: 02/04/20 09:53 Dose: 12.5 mg Documented by: Multivitamins (Multivitamin) 1 tablet PO DAILY@0800 [facility] Last Admin: 02/04/20 08:11 Dose: 1 tablet Documented by: Olanzapine (Zyprexa) 2.5 mg PO QHS [facility] Last Admin: 02/03/20 21:59 Dose: 2.5 mg Documented by: Ondansetron HCl (Zofran) 4 mg IV Q8H PRN PRN PRN Reason: NAUSEA/VOMITING Psyllium Hydrophilic Mucilloid (Metamucil) 1 packet PO DAILY [facility] Last Admin: 02/04/20 09:55 Dose: 1 packet Documented by: Sertraline HCl (Zoloft) 25 mg PO DAILY [facility] Last Admin: 02/04/20 09:55 Dose: 25 mg Documented by: Sodium Chloride () 10 - 40 ml IV UD PRN PRN Reason: SALINE FLUSH Last Admin: 02/02/20 23:00 Dose: 10 ml Documented by: Warfarin Sodium (Coumadin (Pbkc)) 2.5 mg PO SuMoWeFr@1700 [facility] Last Admin: 02/03/20 16:14 Dose: 2.5 mg Documented by: Medical Necessity - Tobacco Use Smoking Status: Former smoker Assessment/Plan All Active Problems (Last Reviewed 01/30/20 @ 05:[address] Elio Goldsmith MD) Sepsis (Acute) Heart failure (Acute) Hx of cholecystectomy (Resolved ~01/13/17) Acute respiratory failure with hypoxia (Acute) Cellulitis (Resolved) Chest pain (Resolved) Congestive heart failure (Resolved) Hypoxemia (Resolved) Moderate calcific aortic stenosis (Resolved) Ulcer of left lower extremity with fat layer exposed (Resolved) Ulcer of right lower leg (Resolved) Wound of right leg (Resolved) 1. Acute kidney injury on chronic kidney disease stage 4. 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 DARRYL is likely due to prerenal related to CRS ( Patient likely has pulmonary HTN and was on diuretics-> hypotension ). Urine FENa is <1%. BUN remains elevated > 130. No uremic symptoms. SCr is stable at 2.99 mg/dL No need to start HD today I explained to the patient that if BUN/SCr worsen with resuming diuretics, then we will need to start [employer] Pt is wet by physical exam. will start lasix 40 mg PO daily Continue holding home losartan Keep MAP > 65 Monitor renal function panel and UOP 2. Acute hypoxic respiratory failure. Secondary to pneumonia and HFrEF. On Levaquin. Dose is OK for the current CrCl. Will resume lasix 40 mg PO daily Might need right side heart cath to evaluate CWP and pulmonary arteries pressure 3. T2DM. Glycemic control per hospital medicine service. d/w Dr. BUTLER Renal team will continue to follow Please call if any question Maite Javier MD
[2020-02-04 10:33] LABS: Absolute Lymphocyte Count 2.18 X10^3/uL (0.83-4.51); Absolute Neutrophil Count 8.9 X10^3/uL (2.0-7.7); Basophil# 0.04 X10^3/uL; Basophil% 0.3 % (0-1); Eosinophil# 0.58 X10^3/uL; Eosinophils% 4.5 % (0-5); Hemoglobin 10.4 g/dL (13.0-16.5); Lymphocyte # 2.18 X10^3/ul (4.0); Lymphocyte % 16.9 % (19-41); Mean Corp Hgb Conc 31.5 g/dL (32-36); Mean Corpuscular Hgb 30.2 pg (27.0-32.0); Mean Corpuscular Volume 95.9 fL (80-94); Mean Platelet Vol. 11.7 fl (6.2-12.0); Monocyte# 1.04 X10^3/uL; Monocyte% 8.1 % (0-10); NRBC Flagged by Analyzer 0 % (0-5); Neutrophil # 8.94 X10^3/uL (2.7-7.7); Neutrophil % 69.3 % (47-70); Platelet Count 159 K/mm3 (150-450); RBC Distribution Width CV 14.4 % (11.6-14.6); RBC Distribution Width SD 49.9 fl (35.1-43.9); Red Blood Count 3.44 M/mm3 (4.6-6.2); White Blood Count 12.9 K/mm3 (4.4-11.0)
[2020-02-04] MEDS: Insulin Lispro 100 UNIT/ML INSULN.PEN SC (11:43)
[2020-02-04] MEDS: Furosemide 40 MG Tablet PO (11:43)
[2020-02-04 11:51] LABS: Bedside Glucose 155 mg/dL (70-110)
--- NOTE | 2020-02-04 14:09 | PCM.PN.HOSP ---
Patient Problems: Active and Suspected Problems (Last Reviewed 01/30/20 @ 05:[address] Elio Goldsmith MD) Sepsis (Acute) Heart failure (Acute) Subjective: Patient seen and examined. He had no complaints. He was sitting up comfortably eating his breakfast. He was not wearing his oxygen and was comfortable. He denied any chest pain, cough, shortness of breath, palpitations or dizziness, nausea vomiting or diarrhea. Review of systems otherwise negative. Labs and vitals reviewed. BUN is up to 139 and creatinine is 2.99. WBC is 12.9 today. Hemoglobin is 10.4. Vitals/I&O's: Vital Signs Temp Pulse Resp BP Pulse Ox 97.5 F L 77 16 108/62 97 02/04/20 09:51 02/04/20 09:53 02/04/20 09:51 02/04/20 09:51 02/04/20 09:51 Oxygen Flow Rate (L/min) 3 Oxygen Delivery Method Nasal Cannula Weight: 260 lb 12.909 oz Body Mass Index (BMI) 44.9 Finger Stick Blood Glucose 227 Intake and Output for Last 24 Hours 02/02/20 02/03/20 02/04/20 22:59 23:59 23:59 Intake Total 720 / 720 Output Total 570 / 570 Balance 150 / 150 General: Alert, Oriented x3, Cooperative, No apparent distress HEENT: Atraumatic, PERRLA, EOMI, Normocephalic Oral: Moist Mucosa Neck: Supple, No JVD, Negative Carotid Bruits Lungs: - - decreased breath sounds bibasally, bilateral fine crackles. No wheezing. On room air at time of review Cardiovascular: Regular rate, Regular Rhythm, Normal S1, Normal S2, No murmurs Abdomen: Bowel Sounds Present, Soft, Non Tender, Non-Distended, No Hepato-splenomegaly Extremities: No clubbing, No cyanosis, No edema, Capillary Refill Less than 3 Seconds Skin: No rashes, No breakdown Musculoskeletal: No Tenderness to Palpation of Joints or Extremities Lymphatic: No Cervical, Supraclavicular, or Inguinal Adenopathy Neurological: Cranial nerves II-XII grossly intact, Neuro grossly intact, Motor Exam 5/5 strength throughout Psych/Mental Status: Normal Affect, Appropriate, Alert and oriented to time, place, person, mood and affect Microbiology Past 72 Hours 01/30/20 06:35 Blood Culture (Wb) - Anticubital Left Blood Culture - Final No growth in 5 days. 01/30/20 00:16 Blood Culture (Wb) - Venous Blood Culture - Final No growth in 5 days. Laboratory Results 02/03/20 15:55: Urine Creatinine 120.00 02/03/20 15:55: Ur Random Sodium 26, Urine Potassium 59.0, Urine Chloride < 10 02/03/20 16:09: POC Glucose 88 02/03/20 21:55: POC Glucose 98 02/04/20 05:40: Sodium 139, Potassium 4.9, Chloride 112 H, Carbon Dioxide 21.0, Anion Gap 6, BUN 139 H*, Creatinine 2.99 H, Estim Creat Clear Calc 17.71, Est GFR (MDRD) Af Amer 26 L, Est GFR (MDRD) Non-Af 22 L, BUN/Creatinine Ratio 46.5 H, Glucose 169 H, Calcium 9.0 02/04/20 05:40: WBC 12.9 H, RBC 3.44 L, Hgb 10.4 L, Hct 33.0 L, MCV 95.9 H, MCH 30.2, MCHC 31.5 L, RDW Std Deviation 49.9 H, RDW Coeff of Yeny 14.4, Plt Count 159, MPV 11.7, Immature Gran % (Auto) 0.900, Neut % (Auto) 69.3, Lymph % (Auto) 16.9 L, Gibson % (Auto) 8.1, Eos % (Auto) 4.5, Baso % (Auto) 0.3, Absolute Neuts (auto) 8.9 H, Absolute Lymphs (auto) 2.18, Nucleated RBC % 0 02/04/20 08:08: POC Glucose 134 H 02/04/20 11:40: POC Glucose 155 H Diagnostic Data Chest X-Ray 01/31/20 05:55 IMPRESSION: Improved aeration of both lungs. Mild residual changes persist. Electronically Signed: Mahendra [place], at 12:48 EST , Service support , Current Medications Acetaminophen (Tylenol) 650 mg PO Q6H PRN PRN PRN Reason: Pain Score 1-10/10 Last Admin: 02/04/20 04:06 Dose: 650 mg Documented by: Allopurinol (Zyloprim) 150 mg PO DAILYCM [facility] Last Admin: 02/04/20 08:13 Dose: 150 mg Documented by: Aspirin (Ecotrin) 81 mg PO DAILY [facility] Last Admin: 02/04/20 08:13 Dose: 81 mg Documented by: Atorvastatin Calcium (Lipitor) 40 mg PO QHS [facility] Last Admin: 02/03/20 21:59 Dose: 40 mg Documented by: Benzonatate (Tessalon Perle) 100 mg PO TID PRN PRN PRN Reason: COUGH Calcitriol (Rocaltrol) 0.25 mcg PO DAILY [facility] Last Admin: 02/04/20 09:56 Dose: 0.25 mcg Documented by: Cholecalciferol (Vitamin D (25mcg)) 1,000 unit PO DAILY [facility] Last Admin: 02/04/20 09:55 Dose: 1,000 unit Documented by: Famotidine (Pepcid) 20 mg PO DAILY [facility] Last Admin: 02/04/20 09:54 Dose: 20 mg Documented by: Furosemide (Lasix) 40 mg PO DAILY [facility] Glucagon () 1 mg IM .X1 PRN PRN Reason: Hypoglycemia Levofloxacin (Levaquin Iv) 750 mg in 150 mls @ 100 mls/hr IV Q48H [facility] Last Infusion: 02/03/20 00:16 Dose: Infused Documented by: Dextrose (Dextrose 10%-Water) 250 mls @ 999 mls/hr IV .Q16M PRN; Protocol PRN Reason: HYPOGLYCEMIA Sodium Chloride () 250 mls @ 15 mls/hr IV .[id number] PRN PRN Reason: Saline Flush Last Infusion: 02/03/20 19:31 Dose: Infused Documented by: Sodium Chloride () 250 mls @ 15 mls/hr IV .[id number] PRN PRN Reason: Additional IVPB Infusion Insulin Human Lispro (Humalog Kwikpen (Bkc)) 0 unit SC ACHS [facility]; Protocol Last Admin: 02/04/20 11:43 Dose: 1 u Documented by: Insulin Human Lispro (Humalog Kwikpen (Bkc)) 12 unit SC TIDAC [facility] Last Admin: 02/04/20 11:43 Dose: 12 u Documented by: Insulin Human NPH (Humulin N (Bk)) 25 units SC BID [facility] Last Admin: 02/04/20 08:14 Dose: 25 u Documented by: Isosorbide Mononitrate (Imdur) 30 mg PO DAILY [facility] Last Admin: 02/04/20 09:53 Dose: 30 mg Documented by: Labetalol HCl (Trandate) 10 mg IV Q4H PRN PRN PRN Reason: SBP > 160; or DBP > 120 Levetiracetam (Keppra Tablet) 250 mg PO BID [facility] Last Admin: 02/04/20 09:53 Dose: 250 mg Documented by: Metoprolol Tartrate (Lopressor (Beta Karyn)) 12.5 mg PO BID [facility] Last Admin: 02/04/20 09:53 Dose: 12.5 mg Documented by: Multivitamins (Multivitamin) 1 tablet PO DAILY@0800 [facility] Last Admin: 02/04/20 08:11 Dose: 1 tablet Documented by: Olanzapine (Zyprexa) 2.5 mg PO QHS [facility] Last Admin: 02/03/20 21:59 Dose: 2.5 mg Documented by: Ondansetron HCl (Zofran) 4 mg IV Q8H PRN PRN PRN Reason: NAUSEA/VOMITING Psyllium Hydrophilic Mucilloid (Metamucil) 1 packet PO DAILY [facility] Last Admin: 02/04/20 09:55 Dose: 1 packet Documented by: Sertraline HCl (Zoloft) 25 mg PO DAILY [facility] Last Admin: 02/04/20 09:55 Dose: 25 mg Documented by: Sodium Chloride () 10 - 40 ml IV UD PRN PRN Reason: SALINE FLUSH Last Admin: 02/02/20 23:00 Dose: 10 ml Documented by: Warfarin Sodium (Coumadin (Pbkc)) 2.5 mg PO SuMoWeFr@1700 [facility] Last Admin: 02/03/20 16:14 Dose: 2.5 mg Documented by: Medical Necessity - Tobacco Use Smoking Status: Former smoker Assessment/Plan All Active Problems (Last Reviewed 01/30/20 @ 05:[address] Elio Goldsmith MD) Sepsis (Acute) Heart failure (Acute) Hx of cholecystectomy (Resolved ~01/13/17) Acute respiratory failure with hypoxia (Acute) Cellulitis (Resolved) Chest pain (Resolved) Congestive heart failure (Resolved) Hypoxemia (Resolved) Moderate calcific aortic stenosis (Resolved) Ulcer of left lower extremity with fat layer exposed (Resolved) Ulcer of right lower leg (Resolved) Wound of right leg (Resolved) 1. Sepsis due to community acquired pneumonia on IV levaquin q48 blood, sputum cultures and urine for strep and legionella were all negative. 2. Darryl on CKD 3 Creatinine today is 2.99. His baseline looks to be around 2.1. BUN creatinine seems to have stabilized. Nephrology on board. 3CKD due to diabetic nephropathy. However the DARRYL on CKD is likely thought to be prerenal and per nephrology, may be cardiorenal syndrome as the thinking is that patient may have pulmonary hypertension and had been on diuretics which caused hypotension. Fena is less than 1%. Per nephrology, no need to start patient on hemodialysis. Will start Lasix 40 mg daily today. Continue holding losartan. 4. Acute on chronic diastolic heart failure EF is 45 to 50% per 2D echo done during this admission. diuresis resumed today with PO lasix 40mg daily monitor intake and output chart on metoprolol. 5. Chronic Afib: rate controlled. On metoprolol. On coumadin. INR today is pending. 6. Hyperlipidemia: On statin. 7. CAD s/p CABG: On aspirin, Imdur and Lipitor as well as metoprolol. Losartan on hold on account of DARRYL on CKD 8. Type 2 diabetes mellitus: On insulin sliding scale. Accu-Cheks AC at bedtime. DVT Prophylaxis: Not indicated as patient is anticoagulated on Coumadin. Inpatient E&M: [id number] [facility] L2
[2020-02-04 15:09] LABS: International Normalized Ratio 2.1; Prothrombin Time (Protime)PT. 23.9 SECONDS (11.7-14.9)
--- NOTE | 2020-02-04 16:19 | CON.PCM_ITS ---
Reason for Consult Date of Consultation: 02/04/20 History of Present Illness: The patient is a 79 year old M who has been admitted to the hospital with shortness of breath. He has had progressive worsening of his kidney function and was seen by nephrology and they reviewed his echocardiogram and wondered whether he would benefit from a right heart catheterization to definitively assess his right heart pressures. He has a history of coronary artery disease status post carotid bypass surgery redo with a left internal mammary artery to the left anterior descending artery and saphenous vein graft to left anterior descending artery and saphenous vein graft to circumflex artery and right coron reema artery. His redo bypass surgery involved a saphenous vein graft to left anterior descending artery and saphenous vein graft to obtuse marginal branch and circumflex artery and saphenous vein graft to the posterior descending artery and right coronary artery. He also had an aortic valve replacement with a 25 mm Pietro Sheppard valve. Postoperatively he did have atrial fibrillation and also underwent a cholecystectomy. He was hospitalized last month for acute on chronic heart failure this was following pneumonia. He is now on O2. He does not have any chest pain. He does not have any palpitations. He does not have any edema. He does have SOB- he feels that this has worsened. He is seeing the improvement analyst for this. His last echocardiogram demonstrated an ejection fraction of 45 to 50% with nondiscernible right heart pressures. He is compliant with is CPAP. He does have positional dizziness. He does not have any orthopnea. Past Medical History Allergies/Adverse Reactions: Allergies Penicillins [PCN] Allergy (Verified 01/17/20 13:33) Swelling Home Medications: Ambulatory Orders Medication Instructions Recorded Aspirin [Adult Low Dose Aspirin EC] 81 mg PO DAILY 07/11/16 Atorvastatin Calcium [Lipitor] 40 mg PO QHS 07/11/16 Multivitamin [Daily Multiple 1 ea PO DAILY 07/11/16 Vitamin] Insulin Regular, Human [Novolin R] 25 unit SC BID 07/24/16 Cholecalciferol (VIT D3) [Vitamin 1,000 unit PO DAILY 10/26/16 D3] Sertraline HCl [Zoloft] 25 mg PO DAILY 01/10/18 insulin NPH isoph U-100 human 100 25 unit SC BID ml 03/08/18 unit/mL subcutaneous suspension levETIRAcetam tablet [Keppra 250 mg PO BID 09/08/19 tablet] Allopurinol [Zyloprim] 150 mg PO DAILYCM 09/27/19 Isosorbide Mononitrate [Isosorbide 30 mg PO DAILY 09/27/19 Mononitrate ER] Metoprolol Tartrate [Lopressor 12.5 mg PO BID 09/27/19 (beta josey)] Furosemide [Lasix] 40 mg PO BID #60 tab 09/29/19 famotidine 20 mg tablet 20 mg PO DAILY 11/13/19 losartan 25 mg tablet 25 mg PO DAILY 11/13/19 olanzapine 2.5 mg tablet 2.5 mg PO QHS 11/13/19 Warfarin [Coumadin] 2.5 mg PO SUMOWEFR 11/17/19 Calcitriol 0.25 mcg PO DAILY 01/30/20 Psyllium Husk [Daily Fiber] 0.4 gm PO DAILY 01/30/20 Past Medical History (Chronic Problems): Chronic Problems (Last Reviewed 01/30/20 @ 05:[address] Elio Goldsmith MD) CHF (congestive heart failure) (Chronic) Obstructive sleep apnea (Chronic) Type 2 diabetes mellitus without complications (Chronic) Anemia (Chronic) TIA (transient ischemic attack) (Chronic) Ocular migraine (Chronic) AUTUMN (obstructive sleep apnea) (Chronic) Acute exacerbation of CHF (congestive heart failure) (Chronic) Chronic atrial fibrillation (Chronic) On coumadin, managed by PCP Atherosclerosis of coronary artery bypass graft without angina pectoris (Chronic) Redo CABG x 3 SVG-LAD, SVG OM of Cx, SVG- PDA of RCA and aortic valve replacement with #25 Pietro-Sheppard valve. 02/24/2016 CABG x 4 OAKLEY-D1, SVG-Distal LAD, SVG-Lat CX, SVG-RCA 12/15/98 Non-rheumatic aortic stenosis (Chronic) H/O aortic valve replacement (Chronic) aortic valve replacement with #25 Pietro-Sheppard valve. 02/24/2016 H/O coronary artery bypass surgery (Chronic ~02/24/16) Redo CABG x 3 SVG-LAD, SVG OM of Cx, SVG- PDA of RCA and aortic valve replacement with #25 Pietro-Sheppard valve. 02/24/2016 CABG x 4 OAKLEY-D1, SVG-Distal LAD, SVG-Lat CX, SVG-RCA 1/18/99 Hypertension (Chronic) Left bundle branch block (Chronic) Localized edema (Chronic) Venous insufficiency of both lower extremities (Chronic) Hyperlipemia (Chronic) Chronic renal failure, stage 3 (moderate) (Chronic) Morbid obesity with BMI of 45.0-49.9, adult (Chronic) Surgical History: cataract, coronary bypass surgery - x 3, - - Aortic valve replacement, bilateral carpal tunnel release, PICC line. Psychiatric History: No pertinent psych hx - *Family History Maternal Family History: Family History (Last Reviewed 01/30/20 @ 05:[address] Elio Goldsmith MD) Father Myocardial infarction Mother CVA (cerebral vascular accident) Brother CAD (coronary artery disease) Diabetes History Items: Stroke - mother at age 60 from stroke Sibling Family History: Family History (Last Reviewed 01/30/20 @ 05:[address] Elio Goldsmith MD) Father Myocardial infarction Mother CVA (cerebral vascular accident) Brother CAD (coronary artery disease) Diabetes History Items: Seizures - recently diagnosed Smoking Status: Former smoker Alcohol: None Drugs: None Review of Systems - Review of Systems General: Denies: Fever, Night Sweats, Fatigue HEENT: Denies: Vision Change Cardiovascular: Reports: Shortness of Breath, Shortness of Breath at Rest, Peripheral Edema. Denies: Chest Discomfort, Orthopnea, PND, Palpitations, Lightheadedness, Dizziness, Near Syncope, Syncope Respiratory: Denies: Cough, Sputum Production, Hemoptysis Gastrointestinal: Denies: Hematemesis, Hematochezia, Melena Genitourinary: Denies: Dysuria, Hematuria Muscoloskeletal: Denies: Myalgias Skin: Denies: Rash Neurological: Denies: Dizziness Psychiatric: Denies: Anxiety Hematologic/ Lymphatic: Denies: Lymph Node Enlargement Subjectve: Pleasant gentleman in no distress sitting in bed on O2 Objective: Vital Signs Temp Pulse Resp BP Pulse Ox 97.5 F L 62 16 108/62 97 02/04/20 09:51 02/04/20 14:44 02/04/20 09:51 02/04/20 09:51 02/04/20 09:51 Oxygen Flow Rate (L/min) 3 Oxygen Delivery Method Nasal Cannula Weight: 260 lb 12.909 oz Body Mass Index (BMI) 44.9 Finger Stick Blood Glucose 227 Intake and Output for Last 24 Hours 02/02/20 02/03/20 02/04/20 22:59 23:59 23:59 Intake Total 720 / 720 Output Total 570 / 570 Balance 150 / 150 General: Awake, Alert, Oriented x 3 HEENT: PERRL, EOMI, Sclera Non Icteric Neck: Supple, Good ROM, No Lymph Node Enlargement Lungs: Clear to auscultation Cardiovascular: Regular Rhythm, Normal S1, Normal S2, No Rubs, No Gallops Murmur Murmur: Grade 2/6, Early Systolic, LLSB Vascular: No Carotid Bruits, Normal Femoral Pulses, Normal Radial Pulses, Normal Dorsalis Pedal Pulse, Normal Posterior Tibial Pulses Abdomen: Bowel Sounds Present, Soft, Non Tender, No HSM, No Organomegaly Extremities: No Cyanosis, No Clubbing, No edema Musculoskeletal: No Erythema Skin: No Rashes Lymphatic: No Lymph Node Enlargement Neurological: No Focal Motor or Sensory Deficit Psych/Mental Status: Appropriate 02/04/20 05:40: Sodium 139, Potassium 4.9, Chloride 112 H, Carbon Dioxide 21.0, Anion Gap 6, BUN 139 H*, Creatinine 2.99 H, Est GFR (MDRD) Af Amer 26 L, Est GFR (MDRD) Non-Af 22 L, BUN/Creatinine Ratio 46.5 H, Glucose 169 H, Calcium 9.0 02/04/20 05:40: WBC 12.9 H, RBC 3.44 L, Hgb 10.4 L, Hct 33.0 L, MCV 95.9 H, MCH 30.2, MCHC 31.5 L, Plt Count 159, MPV 11.7, Immature Gran % (Auto) 0.900, Neut % (Auto) 69.3, Lymph % (Auto) 16.9 L, Finney % (Auto) 8.1, Eos % (Auto) 4.5, Baso % (Auto) 0.3, Absolute Neuts (auto) 8.9 H, Nucleated RBC % 0 02/04/20 14:46: PT 23.9 H, INR 2.1 Rhythm: EKG: ECHO: Stress Test: Cardiac Cath: PCI: CT Surgery: Holter monitor: EPS: PPM: CXR: Chest CT Scan: Assessment/Plan 1. Shortness of breath * Etiology of the above is not entirely clear at this particular time. He does have some diastolic dysfunction as well as his renal dysfunction. He may benefit from a right heart catheterization. His INR however is elevated at this particular time and I think this can be performed as an outpatient. I have discussed this with the hospitalist she understands and agrees to proceed. * 2. Coronary artery disease * He does have evidence of coronary artery disease status post coronary bypass surgery. He appears to be remaining stable with regard to the above. I do not think that his coronary anatomy needs to be reevaluated currently. * He is status post redo CABG x 3 SVG-LAD, SVG OM of Cx, SVG- PDA of RCA and aortic valve replacement with #25 Pietro-Sheppard valve. 02/24/2016 CABG x 4 OAKLEY-D1, SVG-Distal LAD, SVG-Lat CX, SVG-RCA 12/15/98.Stable, from a cardiac standpoint patient does not have any symptoms of angina. We recommend that they continue with current aggressive medical management and risk factor modification. 3. H/O aortic valve replacement Z95.2 Aortic valve replacement with #25 Pietro-Sheppard valve. 02/24/2016 Stable, will continue to monitor by history, exam and echocardiograms as deemed appropriate. He will continue with antibiotic prophylaxis 4. Essential hypertension I10 Blood pressure is on the low side today. However will not make any adjustments at this time. 5. Pure hypercholesterolemia E78.00 Plan Patient will continue with current moderate intensity statin. Recent lipid profile demonstrates total cholesterol 112, HDL 29, LDL 57 6. Chronic renal failure, stage 3 (moderate) N18.3 Plan Patient does follow closely with nephrology. 7. Chronic atrial fibrillation I48.20 On coumadin and I do not want to interrupt this at this particular time for the right heart catheterization. He should continue it. His ventricular response rate is controlled. And his INR is between 2 and 3. 8. Acute on chronic diastolic (congestive) heart failure I50.33 Plan Patient does continue to be more short of breath with exertion. He states that this has not improved since his hospital stay. We will investigate this at a later date with a right heart catheterization. Thank you for allowing me to participate in the care of your patient. Please don't hesitate to call if any issues arise
[2020-02-04 16:41] LABS: Bedside Glucose 125 mg/dL (70-110)
[2020-02-04] MEDS: Atorvastatin Calcium 40 MG Tablet PO (22:25)
[2020-02-04] MEDS: OLANZapine 2.5 MG Tablet PO (22:26)
[2020-02-04] MEDS: levoFLOXacin IV 750 MG/150 ML BAG 100 MG IV (22:36)
[2020-02-04] MEDS: 0.9% Saline Lock 10 ML Syringe IV (22:36)
[2020-02-04 23:06] LABS: Bedside Glucose 135 mg/dL (70-110)
[2020-02-05] VITALS (7 sets, daily range): BP systolic 112–133; BP diastolic 57–61; PULSE 52–80; RESP 16–18; TEMP 36.5–36.7; O2SAT 92–98
[2020-02-05] MEDS: Acetaminophen 325 MG Tablet 650 MG PO (03:51)
[2020-02-05 06:00] LABS: Absolute Lymphocyte Count 1.93 X10^3/uL (0.83-4.51); Basophil# 0.03 X10^3/uL; Basophil% 0.2 % (0-1); Eosinophils% 3.9 % (0-5); Hemoglobin 9.8 g/dL (13.0-16.5); Lymphocyte # 1.93 X10^3/ul (4.0); Lymphocyte % 15.2 % (19-41); Mean Corp Hgb Conc 31.6 g/dL (32-36); Mean Corpuscular Volume 94.8 fL (80-94); Mean Platelet Vol. 11.2 fl (6.2-12.0); Monocyte# 1.03 X10^3/uL; Monocyte% 8.1 % (0-10); NRBC Flagged by Analyzer 0 % (0-5); Neutrophil # 9.04 X10^3/uL (2.7-7.7); Neutrophil % 71.5 % (47-70); Platelet Count 149 K/mm3 (150-450); RBC Distribution Width CV 14.2 % (11.6-14.6); RBC Distribution Width SD 48.7 fl (35.1-43.9); Red Blood Count 3.27 M/mm3 (4.6-6.2); White Blood Count 12.7 K/mm3 (4.4-11.0)
[2020-02-05 07:07] LABS: Anion Gap 8 (5-15); BUN 138 mg/dL (7-18); BUN/Creat Ratio 47.8 RATIO (10-20); Calcium,Total 9.1 mg/dL (8.5-10.1); Chloride 108 mmol/L (98-107); Creatinine, Serum 2.89 mg/dL (0.70-1.30); EST Glomerular Filtration Rate 23 mL/min (>60); Est Glom Filt Rate - Afr Amer 27 mL/min (>60); Estimated Creatinine Clearance 18.32 ml/min; Glucose 131 mg/dL (74-106); Potassium 4.4 mmol/L (3.5-5.1); Sodium Level 138 mmol/L (136-145)
[2020-02-05] MEDS: Insulin NPH Human 100 UNITS/ML PEN 25 UNITS SC (08:30)
[2020-02-05] MEDS: Insulin Lispro 100 UNIT/ML INSULN.PEN 12 UNIT SC (08:30)
[2020-02-05] MEDS: Metoprolol Tartrate 25 MG Tablet 12.5 MG PO (08:32)
[2020-02-05] MEDS: Multivitamins,Therapeutic Tablet 1 TABLET PO (08:32)
[2020-02-05] MEDS: Calcitriol 0.25 MCG Capsule PO (08:32)
[2020-02-05] MEDS: Allopurinol 300 MG Tablet 150 MG PO (08:33)
[2020-02-05] MEDS: Sertraline 50 MG Tablet 25 MG PO (08:34)
[2020-02-05] MEDS: levETIRAcetam 250 MG Tablet PO (08:34)
[2020-02-05] MEDS: Aspirin E.C. 81 MG Tablet PO (08:35)
[2020-02-05] MEDS: Psyllium 1 PACKET PO (08:35)
[2020-02-05] MEDS: Famotidine 20 MG Tablet PO (08:35)
[2020-02-05] MEDS: Furosemide 40 MG Tablet PO (08:36)
[2020-02-05] MEDS: Isosorbide Mononitrate 30 MG Tablet PO (08:38)
[2020-02-05 08:55] LABS: Bedside Glucose 130 mg/dL (70-110)
--- NOTE | 2020-02-05 09:32 | DCINST_ITS ---
- Discharge Diagnoses Current Active Problems: Current Active and Chronic Problems (Last Reviewed 01/30/20 @ 05:[address] Elio Goldsmith MD) Sepsis (Acute) Heart failure (Acute) You will use the following diet at home:: Renal (restricted protein/sodium) Your food should be the consistency of: Regular Discharge Activity: Return to Normal Activity Weight Bearing Status: Weight bearing as tolerated Call your doctor if you observe: Fever of 101 or Higher, Shortness of breath, Fainting spells, Swelling in the ankles Instructions: Taking Medication to Control Heart Failure, What Is Pneumonia? Additional Instructions: allopurinol stopped o/a of renal impairment. Follow up with your preflight inspector, Dr Mccray, today in [place] at 3pm per scheduled appointment Allergies/Adverse Reactions: Allergies Penicillins [PCN] Allergy (Verified 01/17/20 13:33) Swelling Medications to take at Discharge Aspirin [Adult Low Dose Aspirin EC] 81 mg PO DAILY 07/11/16 Atorvastatin Calcium [Lipitor] 40 mg PO QHS 07/11/16 Multivitamin [Daily Multiple Vitamin] 1 ea PO DAILY 07/11/16 Insulin Regular, Human [Novolin R] 25 unit SC BID 07/24/16 Cholecalciferol (VIT D3) [Vitamin D3] 1,000 unit PO DAILY 10/26/16 Sertraline HCl [Zoloft] 25 mg PO DAILY 01/10/18 insulin NPH isoph U-100 human 100 unit/mL subcutaneous suspension 25 unit SC BID ml 03/08/18 levETIRAcetam tablet [Keppra tablet] 250 mg PO BID 09/08/19 Isosorbide Mononitrate [Isosorbide Mononitrate ER] 30 mg PO DAILY 09/27/19 Metoprolol Tartrate [Lopressor (beta josey)] 12.5 mg PO BID 09/27/19 famotidine 20 mg tablet 20 mg PO DAILY 11/13/19 olanzapine 2.5 mg tablet 2.5 mg PO QHS 11/13/19 Warfarin [Coumadin] 2.5 mg PO SUMOWEFR 11/17/19 Calcitriol 0.25 mcg PO DAILY 01/30/20 Psyllium Husk [Daily Fiber] 0.4 gm PO DAILY 01/30/20 Furosemide [Lasix] 40 mg PO DAILY #30 tab 02/05/20 The following prescriptions were given: Furosemide [Lasix] 40 mg PO DAILY #30 tab Transmission Status: Pending to [id number] Primary Care Physician: Romaine Velazquez MD [Primary Care Provider] - Please follow up with your Primary Care Physician in: one week Test Results: Test results from this visit will be discussed in further detail at your follow- up appointment, if applicable. Please Follow Up With: Romaine Velazquez MD Please Follow Up With: Christian Shook MD When: 1-2 weeks Proposed Discharge Date: 02/05/20
--- NOTE | 2020-02-05 09:58 | CASEMGMT ---
SW spoke with patient about Palliative Care. He took brochure, but feels he is doing fine. SW encouraged him to think about it and to talk with his PCP. Brittny SHELL
--- NOTE | 2020-02-05 10:30 | PHA.DC.MC ---
Pharmacy Service has performed discharge medication reconciliation and counseling for this patient. The patient's discharge medication list was reviewed for discrepancies and discrepancies were resolved. The patient was counseled on the following discharge medications and changes in medications for homegoing were reviewed. 1. Lasix: 40mg PO Daily The Reason for Use, instructions for use, and potential side effects were reviewed for all new medications. The patient's questions regarding all of their medications were answered. The patient demonstrated some understanding but would benefit from further education and reinforcement. Home Medications Aspirin [Adult Low Dose Aspirin EC] 81 mg PO DAILY 07/11/16 Atorvastatin Calcium [Lipitor] 40 mg PO QHS 07/11/16 Multivitamin [Daily Multiple Vitamin] 1 ea PO DAILY 07/11/16 Insulin Regular, Human [Novolin R] 25 unit SC BID 07/24/16 Cholecalciferol (VIT D3) [Vitamin D3] 1,000 unit PO DAILY 10/26/16 Sertraline HCl [Zoloft] 25 mg PO DAILY 01/10/18 insulin NPH isoph U-100 human 100 unit/mL subcutaneous suspension 25 unit SC BID ml 03/08/18 levETIRAcetam tablet [Keppra tablet] 250 mg PO BID 09/08/19 Isosorbide Mononitrate [Isosorbide Mononitrate ER] 30 mg PO DAILY 09/27/19 Metoprolol Tartrate [Lopressor (beta josey)] 12.5 mg PO BID 09/27/19 famotidine 20 mg tablet 20 mg PO DAILY 11/13/19 olanzapine 2.5 mg tablet 2.5 mg PO QHS 11/13/19 Warfarin [Coumadin] 2.5 mg PO SUMOWEFR 11/17/19 Calcitriol 0.25 mcg PO DAILY 01/30/20 Psyllium Husk [Daily Fiber] 0.4 gm PO DAILY 01/30/20 Furosemide [Lasix] 40 mg PO DAILY #30 tab 02/05/20
--- NOTE | 2020-02-05 12:27 | PCM.PN.REN ---
Subjective: Pt denied worsening respiratory status.Remains on 3 l/m NC No nausea No vomiting No CP - Physical Exam Vitals/I&O's: Vital Signs Temp Pulse Resp BP Pulse Ox 97.7 F L 80 16 112/61 92 02/05/20 08:16 02/05/20 08:32 02/05/20 08:16 02/05/20 08:16 02/05/20 10:57 Oxygen Flow Rate (L/min) [At 2 REST on Room Air] Oxygen Flow Rate (L/min) [ 2 AMBULATION with Oxygen] Oxygen Flow Rate (L/min) 3 Oxygen Delivery Method Room Air Weight: 119 kg Body Mass Index (BMI) 44.9 Finger Stick Blood Glucose 227 Intake and Output for Last 24 Hours 02/03/20 02/04/20 02/05/20 23:59 23:59 23:59 Intake Total 1460 / 1460 270 / 270 Output Total 1120 / 1120 300 / 300 Balance 340 / 340 -30 / -30 General: Alert, Oriented x3 HEENT: Atraumatic Oral: Moist Mucosa Neck: Supple, No JVD Lungs: Diminished, - - b/l lungs bases crackles Cardiovascular: Regular rate, Regular Rhythm, Normal S1, Normal S2 Abdomen: Bowel Sounds Present, Soft, Non Tender Extremities: No clubbing, No cyanosis, No edema Skin: No rashes Musculoskeletal: No Tenderness to Palpation of Joints or Extremities Lymphatic: No Cervical, Supraclavicular, or Inguinal Adenopathy Neurological: Cranial nerves II-XII grossly intact, Neuro grossly intact Psych/Mental Status: Appropriate Microbiology Past 72 Hours 01/30/20 06:35 Blood Culture (Wb) - Anticubital Left Blood Culture - Final No growth in 5 days. 01/30/20 00:16 Blood Culture (Wb) - Venous Blood Culture - Final No growth in 5 days. Laboratory Results 02/04/20 14:46: PT 23.9 H, INR 2.1 02/04/20 16:33: POC Glucose 125 H 02/04/20 22:10: POC Glucose 135 H 02/05/20 05:35: WBC 12.7 H, RBC 3.27 L, Hgb 9.8 L, Hct 31.0 L, MCV 94.8 H, MCH 30.0, MCHC 31.6 L, RDW Std Deviation 48.7 H, RDW Coeff of Yeny 14.2, Plt Count 149 L, MPV 11.2, Immature Gran % (Auto) 1.100 H, Neut % (Auto) 71.5 H, Lymph % (Auto) 15.2 L, Winkler % (Auto) 8.1, Eos % (Auto) 3.9, Baso % (Auto) 0.2, Absolute Neuts (auto) 9.0 H, Absolute Lymphs (auto) 1.93, Nucleated RBC % 0 02/05/20 05:35: Sodium 138, Potassium 4.4, Chloride 108 H, Carbon Dioxide 22.0, Anion Gap 8, BUN 138 H*, Creatinine 2.89 H, Estim Creat Clear Calc 18.32, Est GFR (MDRD) Af Amer 27 L, Est GFR (MDRD) Non-Af 23 L, BUN/Creatinine Ratio 47.8 H, Glucose 131 H, Calcium 9.1 02/05/20 08:17: POC Glucose 130 H Medical Necessity - Tobacco Use Smoking Status: Former smoker Assessment/Plan All Active Problems (Last Reviewed 01/30/20 @ 05:[address] Elio Goldsmith MD) Sepsis (Acute) Heart failure (Acute) Hx of cholecystectomy (Resolved ~01/13/17) Acute respiratory failure with hypoxia (Acute) Cellulitis (Resolved) Chest pain (Resolved) Congestive heart failure (Resolved) Hypoxemia (Resolved) Moderate calcific aortic stenosis (Resolved) Ulcer of left lower extremity with fat layer exposed (Resolved) Ulcer of right lower leg (Resolved) Wound of right leg (Resolved) 1. Acute kidney injury on chronic kidney disease stage 4. 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 DARRYL is likely due to prerenal related to CRS ( Patient likely has pulmonary HTN and was on diuretics-> hypotension ). Urine FENa is <1%. BUN remains elevated > 130. No uremic symptoms. SCr is slightly better at 2.89 mg/dL No need to start HD Continue lasix 40 mg PO daily Continue holding home losartan Keep MAP > 65 Monitor renal function panel and UOP 2. Acute hypoxic respiratory failure. Secondary to pneumonia and HFrEF. On Levaquin. Dose is OK for the current CrCl. On lasix 40 mg PO daily Might need right side heart cath to evaluate CWP and pulmonary arteries pressure. I reviewed the blow machine tender starch spraying note, right heart cath can be done as outpatient 3. T2DM. Glycemic control per hospital medicine service. Ok to discharge home with lasix 40 mg PO daily to follow with Dr. Han today at 3 pm Please avoid resuming losartan at discharge d/w Dr. Marmolejo Please call if any question Maite Javier MD
--- NOTE | 2020-02-05 14:27 | PCM.DC.SUM ---
Discharge Date and Diagnosis Date of Admission: 01/30/20 Date of Discharge: 02/05/20 - Primary Discharge Diagnosis sepsis due to community acquired pneumonia Charity on CKD 3 acute on chronic HFpEF - Secondary Discharge Diagnosis Chronic Problems (Last Reviewed 01/30/20 @ 05:[address] Elio Goldsmith MD) CHF (congestive heart failure) (Chronic) Obstructive sleep apnea (Chronic) Type 2 diabetes mellitus without complications (Chronic) Anemia (Chronic) TIA (transient ischemic attack) (Chronic) Ocular migraine (Chronic) AUTUMN (obstructive sleep apnea) (Chronic) Acute exacerbation of CHF (congestive heart failure) (Chronic) Chronic atrial fibrillation (Chronic) On coumadin, managed by PCP Atherosclerosis of coronary artery bypass graft without angina pectoris (Chronic) Redo CABG x 3 SVG-LAD, SVG OM of Cx, SVG- PDA of RCA and aortic valve replacement with #25 Pietro-Sheppard valve. 02/24/2016 CABG x 4 OAKLEY-D1, SVG-Distal LAD, SVG-Lat CX, SVG-RCA 12/15/98 Non-rheumatic aortic stenosis (Chronic) H/O aortic valve replacement (Chronic) aortic valve replacement with #25 Pietro-Sheppard valve. 02/24/2016 H/O coronary artery bypass surgery (Chronic ~02/24/16) Redo CABG x 3 SVG-LAD, SVG OM of Cx, SVG- PDA of RCA and aortic valve replacement with #25 Pietro-Sheppard valve. 02/24/2016 CABG x 4 OAKLEY-D1, SVG-Distal LAD, SVG-Lat CX, SVG-RCA 12/15/98 Hypertension (Chronic) Left bundle branch block (Chronic) Localized edema (Chronic) Venous insufficiency of both lower extremities (Chronic) Hyperlipemia (Chronic) Chronic renal failure, stage 3 (moderate) (Chronic) Morbid obesity with BMI of 45.0-49.9, adult (Chronic) Hospital Course and Treatment Imaging Results: Diagnostic Data Chest X-Ray 01/31/20 05:55 IMPRESSION: Improved aeration of both lungs. Mild residual changes persist. Electronically Signed: Mahendra Canada, at 12:48 EST , Service support , nephrology- Dr Smith cardiology- Dr Shook Operations: None Procedures: 2-D Echocardiogram Summary of Care Provided: The patient is a 79 year old M with an extensive past medical history as outlined. He was admitted through the ED on 01/30/2020 with a 1 day history of progressively worsening shortness of breath with associated nonproductive cough, chills and [place]. In the ED was also found to have a low-grade fever, tachypnea and leukocytosis and chest x-ray showed bilateral infiltrates. He was admitted and managed for sepsis due to community-acquired pneumonia. Blood cultures were ordered. He was started on IV Levaquin every 48 hours. Urine for strep and Legionella were negative. Creatinine was 2.96 on admission with a baseline of around 2.5. It was thought to be likely due to cardiorenal syndrome and a lisinopril was held. He was also managed for acute on chronic heart failure with preserved ejection fraction and put on IV Lasix. Lasix however was subsequently held as creatinine was trending upwards. Nephrology was consulted on account of upward trending BUN which peaked at 139. Urine for strep and Legionella were negative and respiratory panel was also negative. Blood culture showed no growth after 5 days and urine cultures were also negative. Patient was put back on Lasix 40 mg daily. Due to concerns for possible pulmonary hypertension resulting persistent shortness of breath, cardiology was consulted for possible right heart cath. However on account of patient being on Coumadin, right heart cath was deferred and is to be scheduled on outpatient basis once patient follows up with cardiology. Patient remained stable and was on his baseline 2 to 3 L of oxygen. He was discharged home on 02/05/2020 on p.o. Lasix 40 mg daily. He is follow-up with his primary care doctor and with nephrology. Patient had an appointment with his classroom paraprofessional Dr. Han at 3 PM on the day of discharge and was counseled to keep this appointment. Patient seen and examined prior to discharge. He felt well and was ready to be discharged. He had no complaints. Review of systems otherwise negative. Labs and vitals reviewed. Home medication reviewed and reconciled. o/e: Vital Signs Height 5 ft 5 in Weight: 262 lb 5.601 oz Weight in Pounds 262.4 lbs Pulse Ox [At REST on Room Air] 95 Pulse Ox [AMBULATION with 92 Oxygen] Pulse Ox 95 Temperature 97.7 F Pulse Rate 80 Respiratory Rate 16 Blood Pressure 112/61 Blood Pressure Position Semi-Fowlers [] General: Alert, Oriented x3, Cooperative, No apparent distress HEENT: Atraumatic, PERRLA, EOMI, Normocephalic Oral: Moist Mucosa Neck: Supple, No JVD, Negative Carotid Bruits Lungs: - - decreased breath sounds bibasally, occasional crackles. No wheezing. On room air at time of review Cardiovascular: Regular rate, Regular Rhythm, Normal S1, Normal S2, No murmurs Abdomen: Bowel Sounds Present, Soft, Non Tender, Non-Distended, No Hepato-splenomegaly Extremities: No clubbing, No cyanosis, No edema, Capillary Refill Less than 3 Seconds Skin: No rashes, No breakdown Musculoskeletal: No Tenderness to Palpation of Joints or Extremities Lymphatic: No Cervical, Supraclavicular, or Inguinal Adenopathy Neurological: Cranial nerves II-XII grossly intact, Neuro grossly intact, Motor Exam 5/5 strength throughout Psych/Mental Status: Normal Affect, Appropriate, Alert and oriented to time, place, person, mood and affect Plan is for discharge home today on his home 2 to 3 L of oxygen. - Physical Exam Vitals/I&O's: Vital Signs Temp Pulse Resp BP Pulse Ox 97.7 F L 80 16 112/61 92 02/05/20 08:16 02/05/20 08:32 02/05/20 08:16 02/05/20 08:16 02/05/20 10:57 Oxygen Flow Rate (L/min) [At 2 REST on Room Air] Oxygen Flow Rate (L/min) [ 2 AMBULATION with Oxygen] Oxygen Flow Rate (L/min) 3 Oxygen Delivery Method Room Air Weight: 262 lb 5.601 oz Body Mass Index (BMI) 44.9 Finger Stick Blood Glucose 227 Intake and Output for Last 24 Hours 02/03/20 02/04/20 02/05/20 23:59 23:59 23:59 Intake Total 1460 / 1460 270 / 270 Output Total 1120 / 1120 300 / 300 Balance 340 / 340 -30 / -30 Microbiology Past 72 Hours 01/30/20 06:35 Blood Culture (Wb) - Anticubital Left Blood Culture - Final No growth in 5 days. 01/30/20 00:16 Blood Culture (Wb) - Venous Blood Culture - Final No growth in 5 days. Laboratory Results 02/04/20 14:46: PT 23.9 H, INR 2.1 02/04/20 16:33: POC Glucose 125 H 02/04/20 22:10: POC Glucose 135 H 02/05/20 05:35: WBC 12.7 H, RBC 3.27 L, Hgb 9.8 L, Hct 31.0 L, MCV 94.8 H, MCH 30.0, MCHC 31.6 L, RDW Std Deviation 48.7 H, RDW Coeff of Yeny 14.2, Plt Count 149 L, MPV 11.2, Immature Gran % (Auto) 1.100 H, Neut % (Auto) 71.5 H, Lymph % (Auto) 15.2 L, [place] % (Auto) 8.1, Eos % (Auto) 3.9, Baso % (Auto) 0.2, Absolute Neuts (auto) 9.0 H, Absolute Lymphs (auto) 1.93, Nucleated RBC % 0 02/05/20 05:35: Sodium 138, Potassium 4.4, Chloride 108 H, Carbon Dioxide 22.0, Anion Gap 8, BUN 138 H*, Creatinine 2.89 H, Estim Creat Clear Calc 18.32, Est GFR (MDRD) Af Amer 27 L, Est GFR (MDRD) Non-Af 23 L, BUN/Creatinine Ratio 47.8 H, Glucose 131 H, Calcium 9.1 02/05/20 08:17: POC Glucose 130 H Discharge Diet: Renal Diet Discharge Activity: Return to Normal Activity Weight Bearing Status: Weight bearing as tolerated Call your doctor if you observe: Fever of 101 or Higher, Shortness of breath, Fainting spells, Swelling in the ankles Home Medications: Medications to take at Discharge Aspirin [Adult Low Dose Aspirin EC] 81 mg PO DAILY 07/11/16 Atorvastatin Calcium [Lipitor] 40 mg PO QHS 07/11/16 Multivitamin [Daily Multiple Vitamin] 1 ea PO DAILY 07/11/16 Insulin Regular, Human [Novolin R] 25 unit SC BID 07/24/16 Cholecalciferol (VIT D3) [Vitamin D3] 1,000 unit PO DAILY 10/26/16 Sertraline HCl [Zoloft] 25 mg PO DAILY 01/10/18 insulin NPH isoph U-100 human 100 unit/mL subcutaneous suspension 25 unit SC BID ml 03/08/18 levETIRAcetam tablet [Keppra tablet] 250 mg PO BID 09/08/19 Isosorbide Mononitrate [Isosorbide Mononitrate ER] 30 mg PO DAILY 09/27/19 Metoprolol Tartrate [Lopressor (beta josey)] 12.5 mg PO BID 09/27/19 famotidine 20 mg tablet 20 mg PO DAILY 11/13/19 olanzapine 2.5 mg tablet 2.5 mg PO QHS 11/13/19 Warfarin [Coumadin] 2.5 mg PO SUMOWEFR 11/17/19 Calcitriol 0.25 mcg PO DAILY 01/30/20 Psyllium Husk [Daily Fiber] 0.4 gm PO DAILY 01/30/20 Furosemide [Lasix] 40 mg PO DAILY #30 tab 02/05/20 Following Prescrptions Were Given to Patient: Furosemide [Lasix] 40 mg PO DAILY #30 tab Transmission Status: Received by [id number] Primary Care Physician: Romaine Velazquez MD [Primary Care Provider] - Please follow up with your Primary Care Physician in: one week Please Follow Up With: Romaine Velazquez MD Please Follow Up With: Dang Dyer PA When: 1-2 weeks Patient Instructions: Taking Medication to Control Heart Failure, What Is Pneumonia? Disposition: Home Minutes spent on discharge:: 45 Patient Condition:: Stable Medical Necessity - Tobacco Use Smoking Status: Former smoker Meaningful Use Info Meaningful Use Diagnoses (Choose all that apply): CHF - CHF DIONNA/ARB ordered at discharge?: No Reason DIONNA/ARB not ordered?: Worsening renal disease Documented LVEF (%): 45 Inpatient E&M: 08741 Disch Hosp
--- NOTE | 2020-02-06 15:41 | CASEMGMT ---
ALAN WALTER Discharge Follow-Up Phone Call. Lia: 16 Strata: 4 Discharge Date: 02/05/2020 Adm Dx: Sepsis Call to pt to inquire about how he has been doing since being discharged from the hospital. Pt states he's doing Okay, stating he slept well during the night. He states he has not picked up the new prescription for Lasix yet, stating he will be picking it up but that he does have some at home already that he can take, stating they are 40 mg as well. Pt states he was able to make it to the appt with Dr Mccray yesterday after being discharged. Reviewed other discharge follow-up appts with pt and he denies having any questions/concerns about them or the discharge instructions. ALAN WALTER thanked pt for taking the time to talk with ALAN WALTER and for choosing [facility]. Leti KONG RN, CM
== END 2020-02-05 12:09 | disposition home or self-care (01) | DRG 871 ==
LOC: ED 01-30 00:02 → PCU 01-30 02:08
PROVIDERS: Family Medicine; Internal Medicine; Admitting Provider Hospitalist; Emergency Provider Emergency Medicine; PCP Family Medicine; Visit Provider Student in an Organized Health Care Education/Training Program
DX: A41.9 Sepsis, unspecified organism (principal); J18.9 Pneumonia, unspecified organism; I50.33 Acute on chronic diastolic (congestive) heart failure; J96.01 Acute respiratory failure with hypoxia; I48.20 Chronic atrial fibrillation, unspecified; N17.9 Acute kidney failure, unspecified; Z68.41 Body mass index [BMI] 40.0-44.9, adult; I13.0 Hypertensive heart and chronic kidney disease with heart failure and stage 1 through stage 4 chronic kidney disease, or unspecified chronic kidney disease; N18.4 Chronic kidney disease, stage 4 (severe); N25.81 Secondary hyperparathyroidism of renal origin; M10.9 Gout, unspecified; G47.33 Obstructive sleep apnea (adult) (pediatric); I87.2 Venous insufficiency (chronic) (peripheral); E78.5 Hyperlipidemia, unspecified; E66.01 Morbid (severe) obesity due to excess calories; I44.7 Left bundle-branch block, unspecified; E11.22 Type 2 diabetes mellitus with diabetic chronic kidney disease; I25.10 Atherosclerotic heart disease of native coronary artery without angina pectoris; Z95.1 Presence of aortocoronary bypass graft; Z95.3 Presence of xenogenic heart valve; Z79.01 Long term (current) use of anticoagulants; Z79.4 Long term (current) use of insulin; Z79.82 Long term (current) use of aspirin; Z87.891 Personal history of nicotine dependence; Z99.81 Dependence on supplemental oxygen; D63.1 Anemia in chronic kidney disease
CPT/HCPCS: 36415; 71045; 71046; 80048; 80069; 81001; 82436; 82570; 82728; 82962; 83540; 83550; 83605; 83880; 83970; 84132; 84133; 84156; 84300; 84484; 84550; 85025; 85610; 87040; 87086; 87449; 87633; 87804; 93005; 94002; 94003; 94640; 97116; 97162; 97166; 97530; 97535; 97802; 99251; 99285; J7040; J7050; A4216; G0463; J1940

== ENCOUNTER → 2020-02-07 10:06 | Outpatient (CLI) | payer MEDICARE, OTHER, SELFPAY ==
[2020-01-30 02:38] VITALS: BMI 44.9
[2020-02-07 12:40] LABS: Absolute Lymphocyte Count 1.82 X10^3/uL (0.83-4.51); Absolute Neutrophil Count 10.6 X10^3/uL (2.0-7.7); Basophil# 0.03 X10^3/uL; Basophil% 0.2 % (0-1); Eosinophils% 3.6 % (0-5); Hematocrit 32.8 % (40-54); Lymphocyte # 1.82 X10^3/ul (4.0); Mean Corp Hgb Conc 30.5 g/dL (32-36); Mean Corpuscular Hgb 29.2 pg (27.0-32.0); Mean Corpuscular Volume 95.9 fL (80-94); Mean Platelet Vol. 11.4 fl (6.2-12.0); Monocyte# 0.83 X10^3/uL; Monocyte% 5.9 % (0-10); NRBC Flagged by Analyzer 0 % (0-5); Neutrophil # 10.62 X10^3/uL (2.7-7.7); Platelet Count 146 K/mm3 (150-450); RBC Distribution Width CV 14.6 % (11.6-14.6); RBC Distribution Width SD 50.8 fl (35.1-43.9); Red Blood Count 3.42 M/mm3 (4.6-6.2)
[2020-02-07 13:23] LABS: Albumin, Serum 3.1 g/dL (3.2-5.0); BUN 111 mg/dL (7-18); BUN/Creat Ratio 43.9 RATIO (10-20); Calcium,Total 9.1 mg/dL (8.5-10.1); Chloride 112 mmol/L (98-107); Creatinine, Serum 2.53 mg/dL (0.70-1.30); EST Glomerular Filtration Rate 26 mL/min (>60); Est Glom Filt Rate - Afr Amer 32 mL/min (>60); Glucose 137 mg/dL (74-106); Phosphorus 3.9 mg/dL (2.5-4.9); Potassium 4.1 mmol/L (3.5-5.1); Sodium Level 142 mmol/L (136-145)
== END ==
PROVIDERS: PCP Family Medicine; Referring Provider Internal Medicine Nephrology; Visit Provider Internal Medicine Nephrology
DX: N18.5 Chronic kidney disease, stage 5 (principal)
CPT/HCPCS: 36415; 80069; 85025

== ENCOUNTER → 2020-02-12 16:47 | Outpatient (CLI) | payer MEDICARE, OTHER, SELFPAY ==
[2020-01-30 02:38] VITALS: BMI 44.9
== END ==
PROVIDERS: PCP Family Medicine; Referring Provider Nurse Practitioner Adult Health; Visit Provider Nurse Practitioner Adult Health
DX: N39.0 Urinary tract infection, site not specified (principal)

== ENCOUNTER → 2020-02-18 11:04 | Outpatient (CLI) | payer MEDICARE, OTHER, SELFPAY ==
[2020-01-30 02:38] VITALS: BMI 44.9
[2020-02-18 12:57] LABS: Absolute Lymphocyte Count 1.41 X10^3/uL (0.83-4.51); Absolute Neutrophil Count 9.1 X10^3/uL (2.0-7.7); Basophil# 0.03 X10^3/uL; Basophil% 0.3 % (0-1); Eosinophil# 0.43 X10^3/uL; Eosinophils% 3.7 % (0-5); Hemoglobin 9.2 g/dL (13.0-16.5); Lymphocyte # 1.41 X10^3/ul (4.0); Lymphocyte % 12.1 % (19-41); Mean Corp Hgb Conc 30.7 g/dL (32-36); Mean Corpuscular Hgb 29.5 pg (27.0-32.0); Mean Corpuscular Volume 96.2 fL (80-94); Mean Platelet Vol. 10.5 fl (6.2-12.0); Monocyte# 0.69 X10^3/uL; Monocyte% 5.9 % (0-10); NRBC Flagged by Analyzer 0 % (0-5); Neutrophil # 9.08 X10^3/uL (2.7-7.7); Neutrophil % 77.7 % (47-70); Platelet Count 179 K/mm3 (150-450); RBC Distribution Width CV 14.7 % (11.6-14.6); RBC Distribution Width SD 51.7 fl (35.1-43.9); Red Blood Count 3.12 M/mm3 (4.6-6.2); White Blood Count 11.7 K/mm3 (4.4-11.0)
[2020-02-18 13:01] LABS: Prothrombin Time (Protime)PT. 35.9 SECONDS (11.7-14.9)
[2020-02-18 13:04] LABS: International Normalized Ratio 3.6
[2020-02-18 13:14] LABS: Anion Gap 6 (5-15); BUN 47 mg/dL (7-18); BUN/Creat Ratio 24.7 RATIO (10-20); Calcium,Total 9.1 mg/dL (8.5-10.1); Chloride 111 mmol/L (98-107); EST Glomerular Filtration Rate 37 mL/min (>60); Est Glom Filt Rate - Afr Amer 44 mL/min (>60); Glucose 94 mg/dL (74-106); Potassium 4.2 mmol/L (3.5-5.1); Sodium Level 143 mmol/L (136-145)
== END ==
PROVIDERS: PCP Family Medicine; Referring Provider Physician Assistant Medical; Visit Provider Physician Assistant Medical
DX: I50.9 Heart failure, unspecified (principal); D64.9 Anemia, unspecified
CPT/HCPCS: 80048; 85025; 85610

== ENCOUNTER 2020-02-19 00:07 | Emergency (ER) | payer MEDICARE, OTHER, SELFPAY ==
[2020-01-30 02:38] VITALS: BMI 44.9
[2020-02-19 00:08] VITALS: BP 113/55; PULSE 66; RESP 18; TEMP 37.3; O2SAT 92; BMI 43.2
[2020-02-19 00:24] VITALS: BP 124/62; PULSE 74; RESP 26; O2SAT 97
[2020-02-19 00:41] LABS: Bedside Glucose 63 mg/dL (70-110)
--- NOTE | 2020-02-19 00:46 | EKG12_ITS ---
Test Reason : HYPOGLYCEMIA Blood Pressure : / mmHG Vent. Rate : 064 BPM Atrial Rate : 258 BPM P-R Int : 000 ms QRS Dur : 158 ms QT Int : 464 ms P-R-T Axes : 000 -02 148 degrees QTc Int : 478 ms Junctional rhythm Left bundle branch block Abnormal ECG Confirmed by DON BAIG, JEAN CLAUDE ([id number]), manuscript editor LEX CARUSO ([id number]) on 02/21/2020 1:30:46 PM Referred By: CECELIA Confirmed By:JEAN CLAUDE OCHOA MD
--- NOTE | 2020-02-19 00:46 | RAD_ITS ---
STUDY: X-RAY CHEST REASON FOR EXAM: Male, 79 years old. IBARRA and amp; CHEST DISCOMFORT TECHNIQUE: Single AP portable view of the chest. COMPARISON: 01/31/2020. FINDINGS: The lungs are normally expanded with mild fullness of the central markings, cannot exclude mild vascular congestion. There is no demonstrated pleural abnormality. There is mild cardiac enlargement. Midline sternotomy wires noted. Normal mediastinum and baudilio. Normal visualized pulmonary arteries. There is atherosclerotic calcification of the aortic arch with tortuosity. There are diffuse degenerative changes of the visualized thoracic spine. There is degenerative osteoarthritis of the bilateral shoulders. There is no demonstrated abnormality of the visualized soft tissue structures of the upper abdomen. RAD/Chest 1 View (Portable) IMPRESSION: Possible mild vascular congestion, stable study in the interval. Electronically Signed: Lakia Garcia MD at 1:04 EDT , Service support ,
--- NOTE | 2020-02-19 00:48 | ED.DCSUM_ITS ---
- ER Visit Summary Date of Service: 02/19/20 Chief Complaint: Need for low blood sugar and also of note complaint of shortness of breath. History of Present Illness: The patient is a 79 M history of CAD, MS, bypass surgery, aortic valve surgery, anemia, insulin-dependent diabetes, renal insufficiency and O2 requiring secondary to a recent pneumonia. Patient was hospitalized about 3 weeks ago. Denies any chest pain. Denies any fever. Says had some mild chills. His blood sugar was low today. He was brought in by family. He denies any vomiting or diarrhea. No melena. Physical Examination: Older male no acute distress vital signs are stable afebrile. On oxygen is 97% hypoxia H EENT exam unremarkable. Neck nontender. No JVD. No lymphadenopathy. Lungs clear to auscultation. Heart regular rhythm rate about 70 no murmur. Abdomen soft nontender normal bowel sounds no peritoneal signs. Patient is moving all 4 extremities. Trace edema both lower extremities equal and symmetrical. Calves are nontender without edema or cords. Neurologically is awake and alert moving all 4 extremities. No focal motor weakness. Test Results: Count 13.8. Hemoglobin 8.8 which is his baseline chronic anemia. No bands. Electrolytes chloride 112. Gap of 4. Glucose of 59. BUN of 43 creatinine 1.85 which is his baseline renal insufficiency. He is on blood thinners his INR is 3.7. His troponin 0 0.02. BNP is pending. Chest x-ray shows possible mild vascular congestion portable 1 view read both by myself and the radiologist. Emergency Department Course and Treatment: Well with low blood sugar of 65. He will be given something to eat here. He also undergo a cardiac work-up due to his shortness of breath. Repeat exam the patient is doing well at 2:24 AM. Repeat blood sugar is 85. Patient has no complaints. He feels comfortable being discharged home. Treatment Plan: Follow-up with his doctor. Continue his current medications. Continue his current oxygen. Watch his blood sugars closely. Disposition: Discharge Impression: Acute hypoglycemia Acute dyspnea History of CAD, prior CABG and aortic valve surgery Anticoagulated on Coumadin History of insulin-dependent diabetes Chronic anemia This note was generated with [employer]ation software. It may contain incorrect words, spelling, and punctuation that were not noted in review of the chart prior to signing ED Disposition - Plan for ED Patient: Referrals: Naumoff,Romaine, MD [Primary Care Provider] -
[2020-02-19 01:27] LABS: Absolute Lymphocyte Count 1.09 X10^3/uL (0.83-4.51); Absolute Neutrophil Count 11.6 X10^3/uL (2.0-7.7); Basophil# 0.03 X10^3/uL; Basophil% 0.2 % (0-1); Eosinophil# 0.19 X10^3/uL; Eosinophils% 1.4 % (0-5); Hematocrit 28.3 % (40-54); Hemoglobin 8.8 g/dL (13.0-16.5); Lymphocyte # 1.09 X10^3/ul (4.0); Lymphocyte % 7.9 % (19-41); Mean Corp Hgb Conc 31.1 g/dL (32-36); Mean Corpuscular Hgb 29.9 pg (27.0-32.0); Mean Corpuscular Volume 96.3 fL (80-94); Mean Platelet Vol. 9.7 fl (6.2-12.0); Monocyte# 0.91 X10^3/uL; Monocyte% 6.6 % (0-10); NRBC Flagged by Analyzer 0 % (0-5); Neutrophil # 11.55 X10^3/uL (2.7-7.7); Neutrophil % 83.5 % (47-70); Platelet Count 166 K/mm3 (150-450); RBC Distribution Width CV 14.6 % (11.6-14.6); RBC Distribution Width SD 50.7 fl (35.1-43.9); Red Blood Count 2.94 M/mm3 (4.6-6.2); White Blood Count 13.8 K/mm3 (4.4-11.0)
[2020-02-19 01:49] LABS: Anion Gap 4 (5-15); BUN 43 mg/dL (7-18); BUN/Creat Ratio 23.2 RATIO (10-20); Calcium,Total 8.7 mg/dL (8.5-10.1); Chloride 112 mmol/L (98-107); Creatinine, Serum 1.85 mg/dL (0.70-1.30); EST Glomerular Filtration Rate 38 mL/min (>60); Est Glom Filt Rate - Afr Amer 46 mL/min (>60); Estimated Creatinine Clearance 28.63 ml/min; Glucose 59 mg/dL (74-106); Potassium 4.1 mmol/L (3.5-5.1); Sodium Level 143 mmol/L (136-145)
[2020-02-19 02:01] LABS: Bedside Glucose 71 mg/dL (70-110)
[2020-02-19 02:22] LABS: International Normalized Ratio 3.7
[2020-02-19 02:25] VITALS: BP 103/55; PULSE 63; RESP 23; O2SAT 98
--- NOTE | 2020-02-19 02:29 | ED.DEP ---
ED Disposition - Plan for ED Patient: Disposition: Home or Assisted Living Instructions: Diabetic Insulin Reaction Referrals: Romaine Velazquez MD [Primary Care Provider] - 2 Days Additional Instructions: Follow-up with your doctor. Your Coumadin level currently is too high with your INR being 3.7. You need to hold your Coumadin for 1 day and then have this rechecked. Follow Up with your doctor.
[2020-02-19 02:31] LABS: Bedside Glucose 85 mg/dL (70-110)
[2020-02-19 03:02] VITALS: BP 142/97; PULSE 81; RESP 22; O2SAT 96
--- NOTE | 2020-02-19 03:02 | ED.RN ---
THIS NURSE REVIEWED D/C INSTRUCTIONS WITH PT. PT VERBALIZED UNDERSTANDING OF INSTRUCTIONS. IV D/C. IV CATHETER INTACT. PT TOLERATED WELL. PT ASSISTED TO FAMILY VEHICLE VIA W/C. PT DENIES FURTHER NEEDS OR QUESTIONS AT THIS TIME
[2020-02-19 10:10] LABS: BNP,B-Type NATRIURETIC PEPTIDE 362.3 pg/mL (0-100)
== END 2020-02-19 03:04 | disposition home or self-care (01) ==
PROVIDERS: Emergency Provider Emergency Medicine; PCP Family Medicine
DX: E11.649 Type 2 diabetes mellitus with hypoglycemia without coma (principal); R06.00 Dyspnea, unspecified; I25.10 Atherosclerotic heart disease of native coronary artery without angina pectoris; D64.9 Anemia, unspecified; I10 Essential (primary) hypertension; Z95.1 Presence of aortocoronary bypass graft; Z79.01 Long term (current) use of anticoagulants; Z79.4 Long term (current) use of insulin; Z99.81 Dependence on supplemental oxygen; Z79.82 Long term (current) use of aspirin; Z87.891 Personal history of nicotine dependence
CPT/HCPCS: 71045; 80048; 82962; 83880; 84484; 85025; 85610; 93005; 99284; A4216

== ENCOUNTER → 2020-02-29 13:46 | Outpatient (CLI) | payer MEDICARE, OTHER, SELFPAY ==
[2020-02-19 00:08] VITALS: BMI 43.2
[2020-02-29 15:13] LABS: Absolute Neutrophil Count 9.2 X10^3/uL (2.0-7.7); Basophil# 0.04 X10^3/uL; Basophil% 0.3 % (0-1); Eosinophil# 0.24 X10^3/uL; Hematocrit 31.9 % (40-54); Hemoglobin 9.6 g/dL (13.0-16.5); Lymphocyte % 14.3 % (19-41); Mean Corp Hgb Conc 30.1 g/dL (32-36); Mean Corpuscular Hgb 29.6 pg (27.0-32.0); Mean Corpuscular Volume 98.5 fL (80-94); Monocyte# 0.67 X10^3/uL; Monocyte% 5.6 % (0-10); NRBC Flagged by Analyzer 0 % (0-5); Neutrophil # 9.15 X10^3/uL (2.7-7.7); Platelet Count 223 K/mm3 (150-450); RBC Distribution Width CV 14.3 % (11.6-14.6); RBC Distribution Width SD 51.2 fl (35.1-43.9); Red Blood Count 3.24 M/mm3 (4.6-6.2); White Blood Count 11.9 K/mm3 (4.4-11.0)
[2020-02-29 15:37] LABS: Protein, Urine (Random) 54.6 mg/dL (<11.9); Protein:Creat Ratio 459 mg/g CRE (0-200)
[2020-02-29 15:43] LABS: Albumin, Serum 2.9 g/dL (3.2-5.0); BUN 43 mg/dL (7-18); Calcium,Total 8.7 mg/dL (8.5-10.1); Chloride 104 mmol/L (98-107); Creatinine, Serum 2.15 mg/dL (0.70-1.30); EST Glomerular Filtration Rate 32 mL/min (>60); Est Glom Filt Rate - Afr Amer 38 mL/min (>60); Ferritin 450 ng/mL (26-388); Glucose 173 mg/dL (74-106); Iron 45 ug/dL (65-175); Iron Binding Capacity,Total 209 ug/dL (250-450); PERCENT IRON SATURATION 21.5 % (15.0-55.0); Phosphorus 3.2 mg/dL (2.5-4.9); Potassium 4.4 mmol/L (3.5-5.1); Sodium Level 138 mmol/L (136-145); Uric Acid 8.6 mg/dL (3.5-7.2)
== END ==
PROVIDERS: PCP Family Medicine; Referring Provider Internal Medicine Nephrology; Visit Provider Internal Medicine Nephrology
DX: N18.5 Chronic kidney disease, stage 5 (principal); D63.1 Anemia in chronic kidney disease
CPT/HCPCS: 36415; 80069; 82570; 82728; 83540; 83550; 84156; 84550; 85025

== ENCOUNTER → 2020-06-30 08:22 | Outpatient (CLI) | payer MEDICARE, OTHER, SELFPAY ==
[2020-06-30 10:04] LABS: Absolute Lymphocyte Count 1.79 X10^3/uL (0.83-4.51); Basophil# 0.03 X10^3/uL; Basophil% 0.4 % (0-1); Eosinophil# 0.33 X10^3/uL; Eosinophils% 4.2 % (0-5); Hematocrit 30.3 % (40-54); Hemoglobin 9.3 g/dL (13.0-16.5); Lymphocyte # 1.79 X10^3/ul (4.0); Lymphocyte % 22.9 % (19-41); Mean Corp Hgb Conc 30.7 g/dL (32-36); Mean Corpuscular Volume 97.7 fL (80-94); Mean Platelet Vol. 10.9 fl (6.2-12.0); Monocyte% 7.7 % (0-10); NRBC Flagged by Analyzer 0 % (0-5); Neutrophil # 5.04 X10^3/uL (2.7-7.7); Neutrophil % 64.4 % (47-70); Platelet Count 163 K/mm3 (150-450); RBC Distribution Width CV 14.7 % (11.6-14.6); White Blood Count 7.8 K/mm3 (4.4-11.0)
[2020-06-30 10:19] LABS: PTHIN 90.1 pg/mL (18.4-80.1)
[2020-06-30 10:22] LABS: Hemoglobin A1c 6.5 % (3.8-5.6)
[2020-06-30 10:26] LABS: Protein, Urine (Random) 80.2 mg/dL (<11.9); Protein:Creat Ratio 590 mg/g CRE (0-200)
[2020-06-30 10:39] LABS: Albumin, Serum 3.1 g/dL (3.2-5.0); BUN 50 mg/dL (7-18); BUN/Creat Ratio 21.7 RATIO (10-20); Calcium,Total 8.5 mg/dL (8.5-10.1); Chloride 106 mmol/L (98-107); Cholesterol 87 mg/dL (200); EST Glomerular Filtration Rate 29 mL/min (>60); Est Glom Filt Rate - Afr Amer 35 mL/min (>60); Ferritin 291 ng/mL (26-388); Glucose 121 mg/dL (74-106); High Density Lipoprotein 29 mg/dL; Iron 52 ug/dL (65-175); Iron Binding Capacity,Total 205 ug/dL (250-450); PERCENT IRON SATURATION 25.4 % (15.0-55.0); Phosphorus 3.2 mg/dL (2.5-4.9); Potassium 4.3 mmol/L (3.5-5.1); Sodium Level 139 mmol/L (136-145); Thyroid Stim Hormone (TSH) 5.11 uIU/mL (0.358-3.74); Triglycerides 102 mg/dL; Uric Acid 6.3 mg/dL (3.5-7.2); Very Low Density Lipoprotein 20 mg/dL (5-40)
== END ==
PROVIDERS: PCP Family Medicine; Referring Provider Internal Medicine Nephrology; Visit Provider Internal Medicine Nephrology
DX: E11.22 Type 2 diabetes mellitus with diabetic chronic kidney disease (principal); I12.9 Hypertensive chronic kidney disease with stage 1 through stage 4 chronic kidney disease, or unspecified chronic kidney disease; N18.4 Chronic kidney disease, stage 4 (severe); R06.02 Shortness of breath; D63.1 Anemia in chronic kidney disease
CPT/HCPCS: 36415; 80061; 80069; 82570; 82728; 83036; 83540; 83550; 83970; 84156; 84443; 84550; 85025

== ENCOUNTER → 2020-07-15 13:51 | Outpatient (CLI) | payer MEDICARE, OTHER, SELFPAY ==
[2020-07-03 15:06] VITALS: BMI 44.2
[2020-07-15 14:32] LABS: Absolute Lymphocyte Count 1.62 X10^3/uL (0.83-4.51); Absolute Neutrophil Count 5.6 X10^3/uL (2.0-7.7); Basophil# 0.02 X10^3/uL; Basophil% 0.3 % (0-1); Eosinophil# 0.22 X10^3/uL; Eosinophils% 2.8 % (0-5); Hematocrit 31.4 % (40-54); Hemoglobin 9.5 g/dL (13.0-16.5); Lymphocyte # 1.62 X10^3/ul (4.0); Lymphocyte % 20.5 % (19-41); Mean Corp Hgb Conc 30.3 g/dL (32-36); Mean Corpuscular Volume 99.1 fL (80-94); Mean Platelet Vol. 10.2 fl (6.2-12.0); Monocyte# 0.46 X10^3/uL; Monocyte% 5.8 % (0-10); NRBC Flagged by Analyzer 0 % (0-5); Neutrophil # 5.56 X10^3/uL (2.7-7.7); Neutrophil % 70.3 % (47-70); Platelet Count 169 K/mm3 (150-450); RBC Distribution Width SD 53.9 fl (35.1-43.9); Red Blood Count 3.17 M/mm3 (4.6-6.2); White Blood Count 7.9 K/mm3 (4.4-11.0)
[2020-07-15 14:47] LABS: PTHIN 87.1 pg/mL (18.4-80.1)
[2020-07-15 14:50] LABS: Albumin, Serum 3.2 g/dL (3.2-5.0); BUN 58 mg/dL (7-18); BUN/Creat Ratio 23.2 RATIO (10-20); Calcium,Total 8.9 mg/dL (8.5-10.1); Chloride 109 mmol/L (98-107); EST Glomerular Filtration Rate 27 mL/min (>60); Est Glom Filt Rate - Afr Amer 32 mL/min (>60); Ferritin 298 ng/mL (26-388); Glucose 163 mg/dL (74-106); Iron 57 ug/dL (65-175); Phosphorus 3.5 mg/dL (2.5-4.9); Potassium 4.8 mmol/L (3.5-5.1); Sodium Level 142 mmol/L (136-145)
[2020-07-15 14:55] VITALS: BP 122/58; PULSE 61; RESP 16; O2SAT 100; BMI 43.2
[2020-07-15] MEDS: Epoetin Alfa epbx 10,000 UNITS/ML 10000 UNIT SC (14:59)
[2020-07-15 22:29] LABS: Xtra Tube EP Lab EXTRA TUBE
[2020-07-16 10:04] LABS: Iron Binding Capacity,Total 211 ug/dL (250-450)
== END ==
PROVIDERS: PCP Family Medicine; Referring Provider Internal Medicine Nephrology; Visit Provider Internal Medicine Nephrology
DX: N18.5 Chronic kidney disease, stage 5 (principal); D63.1 Anemia in chronic kidney disease; N25.81 Secondary hyperparathyroidism of renal origin
CPT/HCPCS: 36415; 80069; 82728; 83540; 83550; 83970; 85025; 96372; Q5106

== ENCOUNTER → 2020-08-12 14:51 | Outpatient (CLI) | payer MEDICARE, OTHER, SELFPAY ==
[2020-07-03 15:06] VITALS: BMI 44.2
[2020-07-15 14:55] VITALS: BMI 43.2
[2020-08-12 15:33] LABS: Absolute Lymphocyte Count 1.69 X10^3/uL (0.83-4.51); Absolute Neutrophil Count 6.1 X10^3/uL (2.0-7.7); Basophil# 0.03 X10^3/uL; Basophil% 0.3 % (0-1); Eosinophil# 0.22 X10^3/uL; Eosinophils% 2.5 % (0-5); Hematocrit 32.5 % (40-54); Hemoglobin 10.1 g/dL (13.0-16.5); Lymphocyte # 1.69 X10^3/ul (4.0); Lymphocyte % 19.6 % (19-41); Mean Corp Hgb Conc 31.1 g/dL (32-36); Mean Corpuscular Hgb 30.2 pg (27.0-32.0); Mean Corpuscular Volume 97.3 fL (80-94); Mean Platelet Vol. 10.5 fl (6.2-12.0); Monocyte# 0.55 X10^3/uL; Monocyte% 6.4 % (0-10); NRBC Flagged by Analyzer 0 % (0-5); Neutrophil # 6.12 X10^3/uL (2.7-7.7); Platelet Count 173 K/mm3 (150-450); RBC Distribution Width CV 14.2 % (11.6-14.6); RBC Distribution Width SD 50.3 fl (35.1-43.9); Red Blood Count 3.34 M/mm3 (4.6-6.2); White Blood Count 8.6 K/mm3 (4.4-11.0)
[2020-08-12 15:45] VITALS: BP 137/58; PULSE 49; RESP 16; TEMP 36.6; O2SAT 100; BMI 43.2
[2020-08-12 15:59] LABS: Albumin, Serum 3.3 g/dL (3.2-5.0); BUN 60 mg/dL (7-18); BUN/Creat Ratio 25.8 RATIO (10-20); Calcium,Total 8.7 mg/dL (8.5-10.1); Chloride 110 mmol/L (98-107); Creatinine, Serum 2.33 mg/dL (0.70-1.30); EST Glomerular Filtration Rate 29 mL/min (>60); Est Glom Filt Rate - Afr Amer 35 mL/min (>60); Ferritin 291 ng/mL (26-388); Glucose 139 mg/dL (74-106); Iron 51 ug/dL (65-175); Iron Binding Capacity,Total 217 ug/dL (250-450); PERCENT IRON SATURATION 23.5 % (15.0-55.0); Phosphorus 2.7 mg/dL (2.5-4.9); Potassium 4.5 mmol/L (3.5-5.1); Sodium Level 141 mmol/L (136-145)
[2020-08-12 16:00] LABS: PTHIN 153.3 pg/mL (18.4-80.1)
[2020-08-12] MEDS: Epoetin Alfa epbx 10,000 UNITS/ML 7500 UNIT SC (16:00)
== END ==
PROVIDERS: PCP Family Medicine; Referring Provider Internal Medicine Nephrology; Visit Provider Internal Medicine Nephrology
DX: N18.5 Chronic kidney disease, stage 5 (principal); D63.1 Anemia in chronic kidney disease
CPT/HCPCS: 36415; 80069; 82728; 83540; 83550; 83970; 85025; 96372; Q5106

== ENCOUNTER → 2020-09-09 14:53 | Outpatient (CLI) | payer MEDICARE, OTHER, SELFPAY ==
[2020-07-15 14:55] VITALS: BMI 43.2
[2020-08-12 15:45] VITALS: BMI 43.2
[2020-09-09 15:30] LABS: Absolute Lymphocyte Count 1.64 X10^3/uL (0.83-4.51); Absolute Neutrophil Count 6.3 X10^3/uL (2.0-7.7); Basophil# 0.03 X10^3/uL; Basophil% 0.3 % (0-1); Eosinophil# 0.25 X10^3/uL; Eosinophils% 2.9 % (0-5); Hematocrit 32.5 % (40-54); Hemoglobin 10.3 g/dL (13.0-16.5); Lymphocyte # 1.64 X10^3/ul (4.0); Lymphocyte % 18.7 % (19-41); Mean Corp Hgb Conc 31.7 g/dL (32-36); Mean Corpuscular Hgb 30.3 pg (27.0-32.0); Mean Corpuscular Volume 95.6 fL (80-94); Mean Platelet Vol. 10.3 fl (6.2-12.0); Monocyte# 0.55 X10^3/uL; Monocyte% 6.3 % (0-10); NRBC Flagged by Analyzer 0 % (0-5); Neutrophil # 6.25 X10^3/uL (2.7-7.7); Neutrophil % 71.5 % (47-70); Platelet Count 167 K/mm3 (150-450); RBC Distribution Width CV 14.4 % (11.6-14.6); RBC Distribution Width SD 50.4 fl (35.1-43.9); White Blood Count 8.8 K/mm3 (4.4-11.0)
[2020-09-09 15:41] LABS: PTHIN 165.3 pg/mL (18.4-80.1)
[2020-09-09 15:46] VITALS: BP 127/57; PULSE 52; RESP 16; TEMP 36.3; O2SAT 98
[2020-09-09 15:46] LABS: Albumin, Serum 3.4 g/dL (3.2-5.0); BUN 56 mg/dL (7-18); Calcium,Total 8.6 mg/dL (8.5-10.1); Chloride 104 mmol/L (98-107); Creatinine, Serum 2.43 mg/dL (0.70-1.30); EST Glomerular Filtration Rate 28 mL/min (>60); Est Glom Filt Rate - Afr Amer 33 mL/min (>60); Ferritin 246 ng/mL (26-388); Glucose 140 mg/dL (74-106); Iron 58 ug/dL (65-175); Iron Binding Capacity,Total 208 ug/dL (250-450); Phosphorus 3.2 mg/dL (2.5-4.9); Potassium 4.2 mmol/L (3.5-5.1); Sodium Level 138 mmol/L (136-145)
[2020-09-09] MEDS: Epoetin Alfa epbx 10,000 UNITS/ML 5600 UNIT SC (15:52)
== END ==
PROVIDERS: PCP Family Medicine; Referring Provider Internal Medicine Nephrology; Visit Provider Internal Medicine Nephrology
DX: N18.5 Chronic kidney disease, stage 5 (principal); D63.1 Anemia in chronic kidney disease; N25.81 Secondary hyperparathyroidism of renal origin
CPT/HCPCS: 36415; 80069; 82728; 83540; 83550; 83970; 85025; 96372; Q5106

== ENCOUNTER → 2020-10-07 14:47 | Outpatient (CLI) | payer MEDICARE, OTHER, SELFPAY ==
[2020-08-12 15:45] VITALS: BMI 43.2
[2020-10-07 15:00] VITALS: BP 136/60; PULSE 62; RESP 16; TEMP 36.2; O2SAT 100; BMI 43.2
[2020-10-07 15:26] LABS: Absolute Lymphocyte Count 1.76 X10^3/uL (0.83-4.51); Absolute Neutrophil Count 6.3 X10^3/uL (2.0-7.7); Basophil# 0.04 X10^3/uL; Basophil% 0.4 % (0-1); Eosinophil# 0.25 X10^3/uL; Eosinophils% 2.8 % (0-5); Hematocrit 31.6 % (40-54); Lymphocyte # 1.76 X10^3/ul (4.0); Lymphocyte % 19.5 % (19-41); Mean Corp Hgb Conc 31.6 g/dL (32-36); Mean Corpuscular Hgb 30.4 pg (27.0-32.0); Mean Platelet Vol. 10.3 fl (6.2-12.0); Monocyte# 0.59 X10^3/uL; Monocyte% 6.5 % (0-10); NRBC Flagged by Analyzer 0 % (0-5); Neutrophil # 6.32 X10^3/uL (2.7-7.7); Neutrophil % 70.2 % (47-70); Platelet Count 160 K/mm3 (150-450); RBC Distribution Width CV 14.3 % (11.6-14.6); RBC Distribution Width SD 49.3 fl (35.1-43.9); Red Blood Count 3.29 M/mm3 (4.6-6.2)
[2020-10-07 15:47] LABS: Albumin, Serum 3.2 g/dL (3.2-5.0); BUN 67 mg/dL (7-18); BUN/Creat Ratio 26.6 RATIO (10-20); Calcium,Total 9.2 mg/dL (8.5-10.1); Chloride 109 mmol/L (98-107); Creatinine, Serum 2.52 mg/dL (0.70-1.30); EST Glomerular Filtration Rate 26 mL/min (>60); Est Glom Filt Rate - Afr Amer 32 mL/min (>60); Ferritin 316 ng/mL (26-388); Glucose 138 mg/dL (74-106); Iron 56 ug/dL (65-175); Iron Binding Capacity,Total 222 ug/dL (250-450); Phosphorus 2.9 mg/dL (2.5-4.9); Potassium 4.4 mmol/L (3.5-5.1); Sodium Level 141 mmol/L (136-145)
[2020-10-07] MEDS: Epoetin Alfa epbx 10,000 UNITS/ML 5600 UNIT SC (16:00)
[2020-10-07 23:21] LABS: Xtra Tube EP Lab EXTRA TUBE
== END ==
PROVIDERS: PCP Family Medicine; Referring Provider Internal Medicine Nephrology; Visit Provider Internal Medicine Nephrology
DX: N18.5 Chronic kidney disease, stage 5 (principal); D63.1 Anemia in chronic kidney disease; N25.81 Secondary hyperparathyroidism of renal origin
CPT/HCPCS: 36415; 80069; 82728; 83540; 83550; 83970; 85025; 96372; Q5106

== ENCOUNTER → 2020-11-04 14:49 | Outpatient (CLI) | payer MEDICARE, OTHER, SELFPAY ==
[2020-08-12 15:45] VITALS: BMI 43.2
[2020-10-16 13:34] VITALS: BMI 44.6
[2020-11-04 15:23] VITALS: BP 118/76; PULSE 64; RESP 18; TEMP 37.1; O2SAT 100; BMI 44.6
[2020-11-04 15:23] LABS: Hematocrit 33.9 % (40-54); Hemoglobin 10.7 g/dL (13.0-16.5); Mean Corp Hgb Conc 31.6 g/dL (32-36); Mean Corpuscular Hgb 30.7 pg (27.0-32.0); Mean Corpuscular Volume 97.4 fL (80-94); Mean Platelet Vol. 10.2 fl (6.2-12.0); Neutrophil % 76.3 % (47-70); Platelet Count 180 K/mm3 (150-450); RBC Distribution Width CV 14.6 % (11.6-14.6); RBC Distribution Width SD 50.9 fl (35.1-43.9); Red Blood Count 3.48 M/mm3 (4.6-6.2)
[2020-11-04 15:24] LABS: Absolute Lymphocyte Count 2.02 X10^3/uL (0.83-4.51); Absolute Neutrophil Count 10.7 X10^3/uL (2.0-7.7); Basophil# 0.05 X10^3/uL; Basophil% 0.4 % (0-1); Eosinophil# 0.39 X10^3/uL; Eosinophils% 2.8 % (0-5); Lymphocyte # 2.02 X10^3/ul (4.0); Lymphocyte % 14.5 % (19-41); Monocyte# 0.75 X10^3/uL; Monocyte% 5.4 % (0-10); NRBC Flagged by Analyzer 0 % (0-5); Neutrophil # 10.66 X10^3/uL (2.7-7.7)
[2020-11-04 15:39] LABS: Albumin, Serum 3.5 g/dL (3.2-5.0); BUN 70 mg/dL (7-18); BUN/Creat Ratio 28.8 RATIO (10-20); Calcium,Total 9.6 mg/dL (8.5-10.1); Chloride 108 mmol/L (98-107); Creatinine, Serum 2.43 mg/dL (0.70-1.30); EST Glomerular Filtration Rate 28 mL/min (>60); Est Glom Filt Rate - Afr Amer 33 mL/min (>60); Estimated Creatinine Clearance 21.44 ml/min; Ferritin 323 ng/mL (26-388); Glucose 81 mg/dL (74-106); Iron 45 ug/dL (65-175); Iron Binding Capacity,Total 211 ug/dL (250-450); Phosphorus 3.4 mg/dL (2.5-4.9); Potassium 4.6 mmol/L (3.5-5.1); Sodium Level 140 mmol/L (136-145)
[2020-11-04 23:16] LABS: Xtra Tube EP Lab EXTRA TUBE
== END ==
PROVIDERS: PCP Family Medicine; Referring Provider Internal Medicine Nephrology; Visit Provider Internal Medicine Nephrology
DX: N18.5 Chronic kidney disease, stage 5 (principal); D63.1 Anemia in chronic kidney disease
CPT/HCPCS: 36415; 80069; 82728; 83540; 83550; 85025

== ENCOUNTER → 2020-12-02 14:57 | Outpatient (CLI) | payer MEDICARE, OTHER, SELFPAY ==
[2020-10-16 13:34] VITALS: BMI 44.6
[2020-11-06 15:00] VITALS: BMI 44.6
[2020-12-02 15:32] LABS: Absolute Lymphocyte Count 1.72 X10^3/uL (0.83-4.51); Absolute Neutrophil Count 7.6 X10^3/uL (2.0-7.7); Basophil# 0.05 X10^3/uL; Basophil% 0.5 % (0-1); Eosinophil# 0.34 X10^3/uL; Eosinophils% 3.3 % (0-5); Hematocrit 33.3 % (40-54); Hemoglobin 10.5 g/dL (13.0-16.5); Lymphocyte # 1.72 X10^3/ul (4.0); Lymphocyte % 16.5 % (19-41); Mean Corp Hgb Conc 31.5 g/dL (32-36); Mean Corpuscular Hgb 30.7 pg (27.0-32.0); Mean Corpuscular Volume 97.4 fL (80-94); Mean Platelet Vol. 10.2 fl (6.2-12.0); Monocyte# 0.61 X10^3/uL; Monocyte% 5.8 % (0-10); NRBC Flagged by Analyzer 0 % (0-5); Neutrophil # 7.64 X10^3/uL (2.7-7.7); Neutrophil % 73.2 % (47-70); Platelet Count 176 K/mm3 (150-450); RBC Distribution Width CV 14.8 % (11.6-14.6); RBC Distribution Width SD 51.9 fl (35.1-43.9); Red Blood Count 3.42 M/mm3 (4.6-6.2); White Blood Count 10.4 K/mm3 (4.4-11.0)
[2020-12-02 15:41] LABS: Albumin, Serum 3.3 g/dL (3.2-5.0); BUN 73 mg/dL (7-18); BUN/Creat Ratio 27.7 RATIO (10-20); Chloride 107 mmol/L (98-107); Creatinine, Serum 2.64 mg/dL (0.70-1.30); EST Glomerular Filtration Rate 25 mL/min (>60); Est Glom Filt Rate - Afr Amer 30 mL/min (>60); Ferritin 438 ng/mL (26-388); Glucose 107 mg/dL (74-106); Iron 56 ug/dL (65-175); Iron Binding Capacity,Total 203 ug/dL (250-450); PERCENT IRON SATURATION 27.6 % (15.0-55.0); Potassium 4.3 mmol/L (3.5-5.1); Sodium Level 140 mmol/L (136-145)
== END ==
PROVIDERS: PCP Family Medicine; Referring Provider Internal Medicine Nephrology; Visit Provider Internal Medicine Nephrology
DX: N18.5 Chronic kidney disease, stage 5 (principal); D63.1 Anemia in chronic kidney disease
CPT/HCPCS: 36415; 80069; 82728; 83540; 83550; 85025

== ENCOUNTER → 2020-12-30 14:36 | Outpatient (CLI) | payer MEDICARE, OTHER, SELFPAY ==
[2020-11-06 15:00] VITALS: BMI 44.6
[2020-12-30 14:54] VITALS: BP 124/62; PULSE 67; RESP 16; TEMP 36.6; O2SAT 100; BMI 44.6
[2020-12-30 14:59] LABS: Absolute Neutrophil Count 9.1 X10^3/uL (2.0-7.7); Basophil# 0.03 X10^3/uL; Basophil% 0.3 % (0-1); Eosinophil# 0.31 X10^3/uL; Eosinophils% 2.6 % (0-5); Hematocrit 30.9 % (40-54); Hemoglobin 9.7 g/dL (13.0-16.5); Lymphocyte % 14.3 % (19-41); Mean Corp Hgb Conc 31.4 g/dL (32-36); Mean Corpuscular Hgb 30.8 pg (27.0-32.0); Mean Corpuscular Volume 98.1 fL (80-94); Mean Platelet Vol. 9.9 fl (6.2-12.0); Monocyte# 0.66 X10^3/uL; Monocyte% 5.6 % (0-10); NRBC Flagged by Analyzer 0 % (0-5); Neutrophil # 9.09 X10^3/uL (2.7-7.7); Neutrophil % 76.6 % (47-70); Platelet Count 166 K/mm3 (150-450); RBC Distribution Width CV 15.1 % (11.6-14.6); RBC Distribution Width SD 53.9 fl (35.1-43.9); Red Blood Count 3.15 M/mm3 (4.6-6.2); White Blood Count 11.9 K/mm3 (4.4-11.0)
[2020-12-30 15:14] LABS: PTHIN 17.9 pg/mL (18.4-80.1)
[2020-12-30 15:20] LABS: Albumin, Serum 3.2 g/dL (3.2-5.0); BUN 64 mg/dL (7-18); BUN/Creat Ratio 25.5 RATIO (10-20); Calcium,Total 9.7 mg/dL (8.5-10.1); Chloride 108 mmol/L (98-107); Creatinine, Serum 2.51 mg/dL (0.70-1.30); EST Glomerular Filtration Rate 26 mL/min (>60); Est Glom Filt Rate - Afr Amer 32 mL/min (>60); Estimated Creatinine Clearance 20.76 ml/min; Ferritin 446 ng/mL (26-388); Glucose 133 mg/dL (74-106); Iron 44 ug/dL (65-175); Iron Binding Capacity,Total 219 ug/dL (250-450); Phosphorus 3.7 mg/dL (2.5-4.9); Potassium 4.4 mmol/L (3.5-5.1); Sodium Level 139 mmol/L (136-145)
[2020-12-30] MEDS: Epoetin Alfa epbx 10,000 UNITS/ML 5600 UNIT SC (15:29)
[2020-12-30 22:56] LABS: Xtra Tube EP Lab EXTRA TUBE
== END ==
PROVIDERS: PCP Family Medicine; Referring Provider Internal Medicine Nephrology; Visit Provider Internal Medicine Nephrology
DX: N18.5 Chronic kidney disease, stage 5 (principal); D63.1 Anemia in chronic kidney disease
CPT/HCPCS: 36415; 80069; 82728; 83540; 83550; 83970; 85025; 96372; Q5106

== ENCOUNTER → 2021-01-01 09:28 | Outpatient (CLI) | payer MEDICARE, OTHER, SELFPAY ==
[2020-12-30 14:54] VITALS: BMI 44.6
[2021-01-01 11:51] LABS: Hematocrit 31.6 % (40-54); Hemoglobin 9.6 g/dL (13.0-16.5); Mean Corp Hgb Conc 30.4 g/dL (32-36); Mean Corpuscular Volume 98.8 fL (80-94); Mean Platelet Vol. 10.7 fl (6.2-12.0); Platelet Count 177 K/mm3 (150-450); RBC Distribution Width CV 15.1 % (11.6-14.6); RBC Distribution Width SD 54.4 fl (35.1-43.9); White Blood Count 10.3 K/mm3 (4.4-11.0)
[2021-01-01 12:06] LABS: Hemoglobin A1c 6.1 % (3.8-5.6)
[2021-01-01 12:12] LABS: ALB/GLOB Ratio 0.6 RATIO (0.9-2.4); AST(SGOT) 10 U/L (15-37); Alanine Aminotransfer ALT/SGPT 17 U/L (16-61); Albumin, Serum 3.2 g/dL (3.2-5.0); Alkaline Phosphatase 116 U/L (45-117); Anion Gap 3 (5-15); BUN 60 mg/dL (7-18); Calcium,Total 9.4 mg/dL (8.5-10.1); Chloride 107 mmol/L (98-107); Cholesterol 100 mg/dL (200); EST Glomerular Filtration Rate 28 mL/min (>60); Est Glom Filt Rate - Afr Amer 34 mL/min (>60); Globulin 5.5 g/dL (2.2-4.2); Glucose 106 mg/dL (74-106); High Density Lipoprotein 31 mg/dL; Potassium 4.3 mmol/L (3.5-5.1); Protein, Total 8.7 g/dL (6.4-8.2); Sodium Level 138 mmol/L (136-145); Thyroid Stim Hormone (TSH) 5.09 uIU/mL (0.358-3.74); Triglycerides 103 mg/dL; Uric Acid 6.4 mg/dL (3.5-7.2); Very Low Density Lipoprotein 21 mg/dL (5-40)
[2021-01-01 12:13] LABS: Microalbumin:Creatinine Ratio 317.9 mg/g CRE (<30 mg/g CRE)
== END ==
PROVIDERS: PCP Family Medicine; Referring Provider Internal Medicine; Visit Provider Internal Medicine
DX: I25.10 Atherosclerotic heart disease of native coronary artery without angina pectoris (principal); E11.9 Type 2 diabetes mellitus without complications; E04.1 Nontoxic single thyroid nodule
CPT/HCPCS: 36415; 80053; 80061; 82043; 82570; 83036; 84443; 84550; 85027

== ENCOUNTER 2021-01-27 14:27 | Outpatient (CLI) | payer MEDICARE, OTHER, SELFPAY ==
[2020-11-06 15:00] VITALS: BMI 44.6
[2020-12-30 14:54] VITALS: BMI 44.6
[2021-01-27 15:05] LABS: Absolute Lymphocyte Count 1.54 X10^3/uL (0.83-4.51); Absolute Neutrophil Count 7.3 X10^3/uL (2.0-7.7); Basophil# 0.05 X10^3/uL; Basophil% 0.5 % (0-1); Eosinophil# 0.53 X10^3/uL; Eosinophils% 5.3 % (0-5); Hematocrit 30.3 % (40-54); Hemoglobin 9.3 g/dL (13.0-16.5); Lymphocyte # 1.54 X10^3/ul (4.0); Lymphocyte % 15.4 % (19-41); Mean Corp Hgb Conc 30.7 g/dL (32-36); Mean Corpuscular Hgb 30.7 pg (27.0-32.0); Mean Platelet Vol. 9.8 fl (6.2-12.0); Monocyte# 0.63 X10^3/uL; Monocyte% 6.3 % (0-10); NRBC Flagged by Analyzer 0 % (0-5); Neutrophil # 7.25 X10^3/uL (2.7-7.7); Neutrophil % 72.2 % (47-70); Platelet Count 179 K/mm3 (150-450); RBC Distribution Width CV 15.3 % (11.6-14.6); RBC Distribution Width SD 55.1 fl (35.1-43.9); Red Blood Count 3.03 M/mm3 (4.6-6.2)
[2021-01-27 15:28] LABS: BUN 55 mg/dL (7-18); BUN/Creat Ratio 24.9 RATIO (10-20); Calcium,Total 8.9 mg/dL (8.5-10.1); Chloride 108 mmol/L (98-107); Creatinine, Serum 2.21 mg/dL (0.70-1.30); EST Glomerular Filtration Rate 31 mL/min (>60); Est Glom Filt Rate - Afr Amer 37 mL/min (>60); Ferritin 486 ng/mL (26-388); Glucose 85 mg/dL (74-106); Iron 52 ug/dL (65-175); Iron Binding Capacity,Total 204 ug/dL (250-450); Phosphorus 3.5 mg/dL (2.5-4.9); Potassium 4.2 mmol/L (3.5-5.1); Sodium Level 140 mmol/L (136-145)
[2021-01-27 15:38] VITALS: BP 128/58; PULSE 59; RESP 16; TEMP 36.6; O2SAT 98; BMI 41.5
[2021-01-27] MEDS: Epoetin Alfa epbx 10,000 UNITS/ML 12000 UNIT SC (15:40)
== END 2021-01-27 15:46 | disposition home or self-care (01) ==
LOC: MEDOUTP 14:27
PROVIDERS: PCP Family Medicine; Referring Provider Internal Medicine Nephrology; Visit Provider Internal Medicine Nephrology
DX: N18.5 Chronic kidney disease, stage 5 (principal); D63.1 Anemia in chronic kidney disease; N25.81 Secondary hyperparathyroidism of renal origin
CPT/HCPCS: 36415; 80069; 82728; 83540; 83550; 85025; 96372; Q5106

== ENCOUNTER 2021-01-31 12:17 | Emergency (ER) | payer OTHER, MEDICARE, SELFPAY ==
[2021-01-31 12:20] VITALS: BP 140/64; PULSE 69; RESP 18; TEMP 36.6; O2SAT 100; BMI 42.9
--- NOTE | 2021-01-31 12:31 | RAD_ITS ---
STUDY: X-RAY - RIGHT KNEE REASON FOR EXAM: Male, 80 years old. fell onto concrete yesterday, right shoulder and knee pain TECHNIQUE: 4 view(s) of the knee. COMPARISON: None. FINDINGS: Normal visualized distal femur. Normal visualized proximal tibia and fibula. Normal proximal tibiofibular articulation. There is mild degenerative arthrosis of the medial femorotibial compartment. Normal lateral femorotibial compartment. Normal patellofemoral articulation. The soft tissue structures are unremarkable. RAD/Knee 4 or More Views IMPRESSION: No acute fracture or dislocation. Electronically Signed: Shimon Bowling MD at 13:23 EST Tel , Service support ,
--- NOTE | 2021-01-31 12:31 | RAD_ITS ---
STUDY: X-RAY - RIGHT SHOULDER REASON FOR EXAM: Male, 80 years old. pt fell onto concrete yesterday, top of right shoulder pain, limited range of motion TECHNIQUE: 4 view(s) of the shoulder. COMPARISON: None. FINDINGS: Normal glenohumeral articulation. Normal acromioclavicular joint. Normal acromion. Normal humeral head and visualized proximal humerus. The soft tissue structures are unremarkable. Normal visualized pulmonary apex. RAD/Shoulder min 2 Views IMPRESSION: Normal x-ray examination of the shoulder. Electronically Signed: Shimon Bowling MD at 13:24 EST Tel , Service support ,
--- NOTE | 2021-01-31 13:06 | ED.DCSUM_ITS ---
History of Present Illness Chief Complaint: Fall Informant: Patient Narrative: 80-year-old male presenting after mechanical fall. Patient states that yesterday he was walking out of the store and missed a step and fell injuring his right knee and his right shoulder. He denies head injury or LOC. He is ambulatory today. He denies dizziness or lightheadedness. He states he has been otherwise healthy. - Past Medical History (1) Atherosclerosis of coronary artery of [place] heart without angina pectoris Status: Chronic (2) H/O coronary artery bypass surgery Status: Chronic Comment: Redo CABG x 3 SVG-LAD, SVG OM of Cx, SVG- PDA of RCA and aortic valve replacement with #25 Pietro-Sheppard valve. 02/24/2016 CABG x 4 OAKLEY-D1, SVG-Distal LAD, SVG-Lat CX, SVG-RCA 12/15/98 (3) Chronic combined systolic and diastolic CHF (congestive heart failure) Status: Chronic (4) H/O aortic valve replacement Status: Chronic Comment: aortic valve replacement with #25 Pietro-Sheppard valve. 02/24/2016 (5) Essential (primary) hypertension Status: Chronic Past Medical History - Allergies and Home Meds Allergies/Adverse Reactions: Allergies Penicillins [PCN] Allergy (Verified 01/31/21 12:23) Swelling Primary Care Physician: Romaine Velazquez MD [Primary Care Provider] - Se Fairchild MD [STAFF PHYSICIAN] - Prior records reviewed: Yes Past Medical History: - - Reviewed in problem list Surgical History: cataract, coronary bypass surgery - x 3, - - Aortic valve replacement, bilateral carpal tunnel release, PICC line. Lives: Spouse/ Significant Other Smoking Status: Former smoker Alcohol: None Drugs: None - Family History Maternal Family History: Family History (Last Reviewed 11/06/20 @ 15:27 by Dang KWAN, PA) Father Myocardial infarction Mother CVA (cerebral vascular accident) Brother CAD (coronary artery disease) Diabetes Family History: Reports: Stroke - mother at age 60 from stroke Sibling Family History: Family History (Last Reviewed 11/06/20 @ 15:27 by Dang KWNA, PA) Father Myocardial infarction Mother CVA (cerebral vascular accident) Brother CAD (coronary artery disease) Diabetes Family History: Reports: Seizures - recently diagnosed Review of Systems ROS: Unable to Obtain General: Reports: Chills, Fever Eyes: Reports: Visual changes - left. Denies: Visual changes - right, Visual changes - bilaterally, Blurred vision - left, Blurred vision - right, Blurred Vision - bilaterally, Diplopia, -, - ENT: Denies: Rhinorrhea, Sore throat Cardiovascular: Denies: Chest pain, Palpitations Respiratory: Denies: Dyspnea, Cough, Dyspnea on exertion Gastrointestinal: Denies: Abdominal pain, Nausea, Vomiting, Diarrhea, Constipation, Melena, Hematochezia, -, - Genitourinary: Denies: Dysuria, Hematuria, Frequency Musculoskeletal: Reports: Extremity Pain - Right shoulder and right knee pain. Denies: Neck pain Skin: Denies: Rash, Abscess Neurological: Denies: Headache, Weakness Psych: Denies: Depression, Anxiety Physical Exam Vital Signs/Narrative: Vital Signs Temp Pulse Resp BP Pulse Ox 01/31/21 12:20 97.9 F 69 18 140/64 H 100 Inital Vital Signs reviewed: Yes General: Obese, No Acute Distress Head: Normocephalic, Atraumatic Eyes: Perrl, EOMI ENT: Moist mucous membranes, No rhinorrhea Cardiovascular: Regular rate, Regular rhythm Extremities: - - Tenderness to palpation over right shoulder girdle. Limited range of motion secondary to pain. No ecchymosis or abrasions. There is tenderness to palpation to the inferior aspect of the right knee. There is no obvious deformity. There is no bruising. Patient has full range of motion of the rig Neurological: Alert, Oriented x3 Psychological: Normal affect, Normal Mood Diagnostic/Tx/Re-eval Clinical Impression(s) from Imaging Studies Knee X-Ray 01/31/21 12:31 IMPRESSION: No acute fracture or dislocation. Electronically Signed: Shimon Bowling MD at 13:23 EST Tel , Service support , Shoulder X-Ray 01/31/21 12:31 IMPRESSION: Normal x-ray examination of the shoulder. Electronically Signed: Shimon Bowling MD at 13:24 EST Tel , Service support , - Medical Decision Making 80-year-old male presenting for right shoulder pain and right knee pain. He had mechanical fall stepping off of a curb. Patient is ambulatory. Patient had 4 views of the right shoulder and 4 views of the right knee interpreted by myself to show no acute bony abnormalities. Radiology does agree. Patient was given medication for pain. He was discharged home in stable condition. Impression: 1. Mechanical fall 2. Right shoulder contusion 3. Right knee contusion ED Disposition - Plan for ED Patient: Disposition: Home or Assisted Living Instructions: Shoulder Problems, Contusions (Bruises), ED Mechanical Fall Referrals: Romaine Velazquez MD [Primary Care Provider] - Se Fairchild MD [STAFF PHYSICIAN] -
[2021-01-31] MEDS: traMADol 50 MG Tablet PO (13:14)
[2021-01-31 14:09] VITALS: PULSE 75; RESP 20; O2SAT 95
== END 2021-01-31 14:10 | disposition home or self-care (01) ==
PROVIDERS: Emergency Provider Student in an Organized Health Care Education/Training Program; PCP Family Medicine
DX: S40.011A Contusion of right shoulder, initial encounter (principal); S80.01XA Contusion of right knee, initial encounter; I25.10 Atherosclerotic heart disease of native coronary artery without angina pectoris; Z95.1 Presence of aortocoronary bypass graft; Z87.891 Personal history of nicotine dependence; W10.9XXA Fall (on) (from) unspecified stairs and steps, initial encounter
CPT/HCPCS: 73030; 73564; 99283

== ENCOUNTER → 2021-02-24 15:00 | Outpatient (CLI) | payer MEDICARE, OTHER, SELFPAY ==
[2020-12-30 14:54] VITALS: BMI 44.6
[2021-01-31 12:20] VITALS: BMI 42.9
[2021-02-24 15:40] LABS: Absolute Neutrophil Count 6.7 X10^3/uL (2.0-7.7); Basophil# 0.04 X10^3/uL; Basophil% 0.4 % (0-1); Eosinophil# 0.37 X10^3/uL; Hematocrit 31.3 % (40-54); Hemoglobin 9.6 g/dL (13.0-16.5); Lymphocyte % 15.3 % (19-41); Mean Corp Hgb Conc 30.7 g/dL (32-36); Mean Platelet Vol. 10.1 fl (6.2-12.0); Monocyte# 0.58 X10^3/uL; Monocyte% 6.3 % (0-10); NRBC Flagged by Analyzer 0 % (0-5); Neutrophil # 6.73 X10^3/uL (2.7-7.7); Neutrophil % 73.7 % (47-70); Platelet Count 181 K/mm3 (150-450); White Blood Count 9.2 K/mm3 (4.4-11.0)
[2021-02-24 15:44] VITALS: BP 127/62; PULSE 62; RESP 16; TEMP 36.6; O2SAT 96; BMI 42.9
[2021-02-24] MEDS: Epoetin Alfa epbx 10,000 UNITS/ML 12000 UNIT SC (15:58)
[2021-02-24 16:01] LABS: Albumin, Serum 2.9 g/dL (3.2-5.0); BUN 39 mg/dL (7-18); BUN/Creat Ratio 19.6 RATIO (10-20); Chloride 107 mmol/L (98-107); Creatinine, Serum 1.99 mg/dL (0.70-1.30); EST Glomerular Filtration Rate 35 mL/min (>60); Est Glom Filt Rate - Afr Amer 42 mL/min (>60); Estimated Creatinine Clearance 26.18 ml/min; Ferritin 526 ng/mL (26-388); Glucose 181 mg/dL (74-106); Iron Binding Capacity,Total 200 ug/dL (250-450); Phosphorus 2.9 mg/dL (2.5-4.9); Potassium 4.3 mmol/L (3.5-5.1); Sodium Level 140 mmol/L (136-145)
[2021-02-24 23:37] LABS: Xtra Tube EP Lab EXTRA TUBE
== END ==
PROVIDERS: PCP Family Medicine; Referring Provider Internal Medicine Nephrology; Visit Provider Internal Medicine Nephrology
DX: N18.5 Chronic kidney disease, stage 5 (principal); D63.1 Anemia in chronic kidney disease
CPT/HCPCS: 36415; 80069; 82728; 83550; 85025; 96372; Q5106

== ENCOUNTER → 2021-03-24 15:00 | Outpatient (CLI) | payer MEDICARE, OTHER, SELFPAY ==
[2021-02-24 15:44] VITALS: BMI 42.9
[2021-03-24 15:28] LABS: Absolute Lymphocyte Count 1.53 X10^3/uL (0.83-4.51); Basophil# 0.02 X10^3/uL; Basophil% 0.2 % (0-1); Eosinophil# 0.18 X10^3/uL; Eosinophils% 1.7 % (0-5); Hematocrit 37.3 % (40-54); Hemoglobin 11.6 g/dL (13.0-16.5); Lymphocyte # 1.53 X10^3/ul (0.83-4.51); Lymphocyte % 14.5 % (19-41); Mean Corp Hgb Conc 31.1 g/dL (32-36); Mean Corpuscular Hgb 30.4 pg (27.0-32.0); Mean Corpuscular Volume 97.9 fL (80-94); Monocyte# 0.77 X10^3/uL; Monocyte% 7.3 % (0-10); NRBC Flagged by Analyzer 0 % (0-5); Neutrophil # 8.01 X10^3/uL (2.7-7.7); Neutrophil % 75.9 % (47-70); Platelet Count 164 K/mm3 (150-450); RBC Distribution Width CV 15.7 % (11.6-14.6); RBC Distribution Width SD 55.8 fl (35.1-43.9); Red Blood Count 3.81 M/mm3 (4.6-6.2); White Blood Count 10.6 K/mm3 (4.4-11.0)
[2021-03-24 15:46] LABS: BUN 67 mg/dL (7-18); Calcium,Total 8.5 mg/dL (8.5-10.1); Chloride 107 mmol/L (98-107); Creatinine, Serum 1.97 mg/dL (0.70-1.30); EST Glomerular Filtration Rate 35 mL/min (>60); Est Glom Filt Rate - Afr Amer 42 mL/min (>60); Ferritin 316 ng/mL (26-388); Glucose 152 mg/dL (74-106); Iron Binding Capacity,Total 249 ug/dL (250-450); Phosphorus 2.9 mg/dL (2.5-4.9); Potassium 3.9 mmol/L (3.5-5.1); Sodium Level 139 mmol/L (136-145)
[2021-03-24 23:25] LABS: Xtra Tube EP Lab EXTRA TUBE
[2021-03-25 07:40] LABS: PTHIN 105.2 pg/mL (18.4-80.1)
== END ==
PROVIDERS: PCP Family Medicine; Referring Provider Internal Medicine Nephrology; Visit Provider Internal Medicine Nephrology
DX: N18.5 Chronic kidney disease, stage 5 (principal); D63.1 Anemia in chronic kidney disease
CPT/HCPCS: 36415; 80069; 82728; 83550; 83970; 85025

== ENCOUNTER → 2021-04-07 09:13 | Outpatient (CLI) | payer MEDICARE, OTHER, SELFPAY ==
[2021-04-06 12:09] VITALS: BMI 41.3
== END ==
PROVIDERS: PCP Family Medicine; Referring Provider Internal Medicine; Visit Provider Internal Medicine
DX: E11.9 Type 2 diabetes mellitus without complications (principal)
CPT/HCPCS: 36415; 83036

== ENCOUNTER → 2021-04-23 14:56 | Outpatient (CLI) | payer MEDICARE, OTHER, SELFPAY ==
[2021-02-24 15:44] VITALS: BMI 42.9
[2021-04-06 12:09] VITALS: BMI 41.3
[2021-04-23 15:05] VITALS: BP 140/76; PULSE 73; RESP 16; TEMP 35.9; O2SAT 99; BMI 40.6
[2021-04-23 15:18] LABS: Absolute Neutrophil Count 7.3 X10^3/uL (2.0-7.7); Basophil# 0.03 X10^3/uL; Basophil% 0.3 % (0-1); Eosinophil# 0.11 X10^3/uL; Eosinophils% 1.1 % (0-5); Hematocrit 36.3 % (40-54); Hemoglobin 10.8 g/dL (13.0-16.5); Lymphocyte % 17.3 % (19-41); Mean Corp Hgb Conc 29.8 g/dL (32-36); Mean Corpuscular Volume 97.3 fL (80-94); Mean Platelet Vol. 10.2 fl (6.2-12.0); Monocyte# 0.64 X10^3/uL; Monocyte% 6.5 % (0-10); NRBC Flagged by Analyzer 0 % (0-5); Neutrophil # 7.28 X10^3/uL (2.7-7.7); Neutrophil % 74.4 % (47-70); Platelet Count 183 K/mm3 (150-450); RBC Distribution Width SD 53.7 fl (35.1-43.9); Red Blood Count 3.73 M/mm3 (4.6-6.2); White Blood Count 9.8 K/mm3 (4.4-11.0)
[2021-04-23 15:36] LABS: Albumin, Serum 3.2 g/dL (3.2-5.0); BUN 58 mg/dL (7-18); BUN/Creat Ratio 29.3 RATIO (10-20); Calcium,Total 9.2 mg/dL (8.5-10.1); Chloride 107 mmol/L (98-107); Creatinine, Serum 1.98 mg/dL (0.70-1.30); EST Glomerular Filtration Rate 35 mL/min (>60); Est Glom Filt Rate - Afr Amer 42 mL/min (>60); Estimated Creatinine Clearance 26.32 ml/min; Ferritin 324 ng/mL (26-388); Glucose 101 mg/dL (74-106); Iron 62 ug/dL (65-175); Phosphorus 3.2 mg/dL (2.5-4.9); Potassium 4.5 mmol/L (3.5-5.1); Sodium Level 139 mmol/L (136-145)
[2021-04-23 23:14] LABS: Xtra Tube EP Lab EXTRA TUBE
[2021-04-25 11:32] LABS: Iron Binding Capacity,Total 234 ug/dL (250-450); PERCENT IRON SATURATION 26.5 % (15.0-55.0)
== END ==
PROVIDERS: PCP Family Medicine; Referring Provider Internal Medicine Nephrology; Visit Provider Internal Medicine Nephrology
DX: N18.5 Chronic kidney disease, stage 5 (principal); D63.1 Anemia in chronic kidney disease
CPT/HCPCS: 36415; 80069; 82728; 83540; 83550; 85025

== ENCOUNTER → 2021-05-19 14:52 | Outpatient (CLI) | payer MEDICARE, OTHER, SELFPAY ==
[2021-04-06 12:09] VITALS: BMI 41.3
[2021-04-23 15:05] VITALS: BMI 40.6
[2021-05-19 15:16] LABS: Absolute Lymphocyte Count 1.47 X10^3/uL (0.83-4.51); Absolute Neutrophil Count 7.2 X10^3/uL (2.0-7.7); Basophil# 0.03 X10^3/uL; Basophil% 0.3 % (0-1); Eosinophil# 0.21 X10^3/uL; Eosinophils% 2.2 % (0-5); Hematocrit 31.8 % (40-54); Hemoglobin 9.9 g/dL (13.0-16.5); Lymphocyte # 1.47 X10^3/ul (0.83-4.51); Lymphocyte % 15.4 % (19-41); Mean Corp Hgb Conc 31.1 g/dL (32-36); Mean Corpuscular Hgb 29.7 pg (27.0-32.0); Mean Corpuscular Volume 95.5 fL (80-94); Mean Platelet Vol. 10.1 fl (6.2-12.0); Monocyte# 0.61 X10^3/uL; Monocyte% 6.4 % (0-10); NRBC Flagged by Analyzer 0 % (0-5); Neutrophil # 7.16 X10^3/uL (2.7-7.7); Neutrophil % 75.1 % (47-70); Platelet Count 186 K/mm3 (150-450); RBC Distribution Width CV 16.1 % (11.6-14.6); RBC Distribution Width SD 56.5 fl (35.1-43.9); Red Blood Count 3.33 M/mm3 (4.6-6.2); White Blood Count 9.5 K/mm3 (4.4-11.0)
[2021-05-19 15:34] LABS: BUN 64 mg/dL (7-18); BUN/Creat Ratio 25.9 RATIO (10-20); Calcium,Total 8.5 mg/dL (8.5-10.1); Chloride 109 mmol/L (98-107); Creatinine, Serum 2.47 mg/dL (0.70-1.30); EST Glomerular Filtration Rate 27 mL/min (>60); Est Glom Filt Rate - Afr Amer 33 mL/min (>60); Ferritin 423 ng/mL (26-388); Glucose 157 mg/dL (74-106); Iron 51 ug/dL (65-175); Iron Binding Capacity,Total 208 ug/dL (250-450); PERCENT IRON SATURATION 24.5 % (15.0-55.0); Phosphorus 3.6 mg/dL (2.5-4.9); Potassium 4.8 mmol/L (3.5-5.1); Sodium Level 139 mmol/L (136-145)
[2021-05-19 15:40] VITALS: BP 129/71; PULSE 54; RESP 18; TEMP 36.3; O2SAT 98
[2021-05-19] MEDS: Epoetin Alfa epbx 10,000 UNITS/ML 12000 UNIT SC (15:52)
== END ==
PROVIDERS: PCP Family Medicine; Referring Provider Internal Medicine Nephrology; Visit Provider Internal Medicine Nephrology
DX: N18.5 Chronic kidney disease, stage 5 (principal); D63.1 Anemia in chronic kidney disease
CPT/HCPCS: 80069; 82728; 83540; 83550; 85025; 96372; Q5106

== ENCOUNTER → 2021-06-11 14:56 | Outpatient (CLI) | payer MEDICARE, OTHER, SELFPAY ==
[2021-05-29 08:31] VITALS: BMI 43.7
--- NOTE | 2021-06-11 14:57 | ECHOCS_ITS ---
Reason For Study: VALVE REPLACEMENT EVAL Procedure This was a 2D Doppler, Color Flow transthoracic echocardiogram. The study was technically difficult. The study was technically limited. Exam performed in department. Left Ventricle Normal LV size. The estimated ejection fraction is 45 %. There is mild global hypokinesis of the left ventricle. Right Ventricle Normal RV size. Normal systolic function. Atria Normal left atrium. Normal right atrium. Mitral Valve There is mild mitral annular calcification. Tricuspid Valve Normal tricuspid valve. Mild (1+) tricuspid valve insufficiency. Pulmonary artery systolic pressure is 38 mmHg. Aortic Valve Mild aortic stenosis. Bioprosthetic aortic valve. Pulmonic Valve The pulmonic valve is not well visualized. Great Vessels Normal aortic root. The pulmonary artery is normal size. Pericardium/Pleural No pericardial effusion. Medication 22 gauge I.V. with prn adaptor inserted into right arm. Diluted definity 6ml given slow IV push to enhance endocardial definition. MMode/2D Measurements & Calculations LVIDd: 4.3 cm IVSd: 1.0 cm LVOT diam: 2.0 cm LVIDs: 3.6 cm LVPWd: 1.0 cm FS: 16.0 % LVOT area: 3.1 cm2 Ao root diam: 3.3 cm LAV(MOD-bp): 70.2 ml LA A4 area: 23.4 cm2 LAV(MOD-bp) Indexed: 31.6 ml/m2 LAV(MOD-sp2): 71.3 ml LAV(MOD-sp4): 66.3 ml LA dimension(2D): 5.2 cm RA A4 area: 20.9 cm2 Doppler Measurements & Calculations MV E max malini: 145.6 cm/sec MV P1/2t max malini: 178.9 cm/sec Ao V2 max: 186.3 cm/sec MV P1/2t: 109.9 msec Ao max P.0 mmHg MV dec slope: 476.7 cm/sec2 Ao V2 mean: 132.5 cm/sec Ao mean P.1 mmHg MVA(P1/2t): 2.0 cm2 Ao V2 VTI: 43.9 cm MICHAEL(I,D): 1.4 cm2 MICHAEL(V,D): 1.4 cm2 LV V1 max: 83.4 cm/sec SV(LVOT): 59.7 ml PA V2 max: 94.9 cm/sec LV V1 max P.8 mmHg LV V1 mean P.5 mmHg LV V1 mean: 55.6 cm/sec LV V1 VTI: 19.4 cm TR max malini: 295.1 cm/sec TR max P.9 mmHg ECHO/Echo Complete W/ Contrast Interpretation Summary Normal LV size. The estimated ejection fraction is 45 %. There is mild global hypokinesis of the left ventricle. Bioprosthetic aortic valve. Pulmonary artery systolic pressure is 38 mmHg. Mild aortic stenosis. Contrast injection was performed. Ordering Physician: Christian Shook Referring Physician: JENNIFER LU Performed By: Analisa Lujan RDCS
== END ==
PROVIDERS: PCP Family Medicine; Referring Provider Internal Medicine Cardiovascular Disease; Visit Provider Internal Medicine Cardiovascular Disease
DX: I44.7 Left bundle-branch block, unspecified (principal)
CPT/HCPCS: 93306; Q9957; A4216; C8929; J3490

== ENCOUNTER → 2021-06-16 14:48 | Outpatient (CLI) | payer MEDICARE, OTHER, SELFPAY ==
[2021-04-23 15:05] VITALS: BMI 40.6
[2021-05-29 08:31] VITALS: BMI 43.7
[2021-06-16 15:10] LABS: Absolute Lymphocyte Count 1.48 X10^3/uL (0.83-4.51); Basophil# 0.03 X10^3/uL; Basophil% 0.3 % (0-1); Eosinophil# 0.21 X10^3/uL; Eosinophils% 2.2 % (0-5); Hematocrit 32.4 % (40-54); Hemoglobin 9.9 g/dL (13.0-16.5); Lymphocyte # 1.48 X10^3/ul (0.83-4.51); Lymphocyte % 15.8 % (19-41); Mean Corp Hgb Conc 30.6 g/dL (32-36); Mean Corpuscular Hgb 30.5 pg (27.0-32.0); Mean Corpuscular Volume 99.7 fL (80-94); Mean Platelet Vol. 9.9 fl (6.2-12.0); Monocyte# 0.68 X10^3/uL; Monocyte% 7.2 % (0-10); NRBC Flagged by Analyzer 0 % (0-5); Neutrophil # 6.95 X10^3/uL (2.7-7.7); Neutrophil % 74.1 % (47-70); Platelet Count 177 K/mm3 (150-450); RBC Distribution Width CV 17.1 % (11.6-14.6); RBC Distribution Width SD 62.6 fl (35.1-43.9); Red Blood Count 3.25 M/mm3 (4.6-6.2); White Blood Count 9.4 K/mm3 (4.4-11.0)
[2021-06-16 15:20] VITALS: BP 117/60; PULSE 72; RESP 16; TEMP 36.6; O2SAT 99; BMI 42.9
[2021-06-16 15:31] LABS: Albumin, Serum 3.1 g/dL (3.2-5.0); BUN 58 mg/dL (7-18); BUN/Creat Ratio 24.1 RATIO (10-20); Calcium,Total 8.3 mg/dL (8.5-10.1); Chloride 105 mmol/L (98-107); Creatinine, Serum 2.41 mg/dL (0.70-1.30); EST Glomerular Filtration Rate 28 mL/min (>60); Est Glom Filt Rate - Afr Amer 34 mL/min (>60); Estimated Creatinine Clearance 21.27 ml/min; Ferritin 503 ng/mL (26-388); Glucose 145 mg/dL (74-106); Iron 54 ug/dL (65-175); Iron Binding Capacity,Total 250 ug/dL (250-450); PTHIN 110.6 pg/mL (18.4-80.1); Phosphorus 2.9 mg/dL (2.5-4.9); Sodium Level 138 mmol/L (136-145)
[2021-06-16] MEDS: Epoetin Alfa epbx 10,000 UNITS/ML 12000 UNIT SC (15:32)
[2021-06-16 23:05] LABS: Xtra Tube EP Lab EXTRA TUBE
== END ==
PROVIDERS: PCP Family Medicine; Referring Provider Internal Medicine Nephrology; Visit Provider Internal Medicine Nephrology
DX: N18.5 Chronic kidney disease, stage 5 (principal); D63.1 Anemia in chronic kidney disease
CPT/HCPCS: 36415; 80069; 82728; 83540; 83550; 83970; 85025; 96372; Q5106

== ENCOUNTER → 2021-07-16 14:51 | Outpatient (CLI) | payer MEDICARE, OTHER, SELFPAY ==
[2021-05-29 08:31] VITALS: BMI 43.7
[2021-07-16 15:12] LABS: Absolute Lymphocyte Count 1.26 X10^3/uL (0.83-4.51); Absolute Neutrophil Count 7.6 X10^3/uL (2.0-7.7); Basophil# 0.03 X10^3/uL; Basophil% 0.3 % (0-1); Eosinophil# 0.18 X10^3/uL; Eosinophils% 1.8 % (0-5); Hematocrit 34.2 % (40-54); Hemoglobin 10.4 g/dL (13.0-16.5); Lymphocyte # 1.26 X10^3/ul (0.83-4.51); Lymphocyte % 12.9 % (19-41); Mean Corp Hgb Conc 30.4 g/dL (32-36); Mean Corpuscular Hgb 30.4 pg (27.0-32.0); Mean Platelet Vol. 10.3 fl (6.2-12.0); Monocyte# 0.61 X10^3/uL; Monocyte% 6.3 % (0-10); NRBC Flagged by Analyzer 0 % (0-5); Neutrophil # 7.63 X10^3/uL (2.7-7.7); Neutrophil % 78.2 % (47-70); Platelet Count 163 K/mm3 (150-450); RBC Distribution Width CV 16.4 % (11.6-14.6); RBC Distribution Width SD 60.6 fl (35.1-43.9); Red Blood Count 3.42 M/mm3 (4.6-6.2); White Blood Count 9.8 K/mm3 (4.4-11.0)
[2021-07-16 15:23] VITALS: BP 130/69; PULSE 60; RESP 18; TEMP 36.3; O2SAT 96
[2021-07-16] MEDS: Epoetin Alfa epbx 10,000 UNITS/ML 9000 UNIT SC (15:24)
[2021-07-16 15:30] LABS: Albumin, Serum 3.2 g/dL (3.2-5.0); BUN 64 mg/dL (7-18); BUN/Creat Ratio 31.5 RATIO (10-20); Calcium,Total 9.1 mg/dL (8.5-10.1); Chloride 109 mmol/L (98-107); Creatinine, Serum 2.03 mg/dL (0.70-1.30); EST Glomerular Filtration Rate 34 mL/min (>60); Est Glom Filt Rate - Afr Amer 41 mL/min (>60); Ferritin 572 ng/mL (26-388); Glucose 152 mg/dL (74-106); Iron 48 ug/dL (65-175); Iron Binding Capacity,Total 245 ug/dL (250-450); Phosphorus 3.2 mg/dL (2.5-4.9); Potassium 4.4 mmol/L (3.5-5.1); Sodium Level 140 mmol/L (136-145)
[2021-07-16 23:09] LABS: Xtra Tube EP Lab EXTRA TUBE
== END ==
PROVIDERS: PCP Family Medicine; Referring Provider Internal Medicine Nephrology; Visit Provider Internal Medicine Nephrology
DX: N18.5 Chronic kidney disease, stage 5 (principal); D63.1 Anemia in chronic kidney disease
CPT/HCPCS: 36415; 80069; 82728; 83540; 83550; 85025; 96372; Q5106

== ENCOUNTER → 2021-07-17 11:04 | Outpatient (CLI) | payer MEDICARE, OTHER, SELFPAY ==
[2021-07-17 12:00] LABS: Hematocrit 33.9 % (40-54); Hemoglobin 10.5 g/dL (13.0-16.5); Platelet Count 169 K/mm3 (150-450); RBC Distribution Width CV 16.5 % (11.6-14.6); RBC Distribution Width SD 60.5 fl (35.1-43.9); Red Blood Count 3.39 M/mm3 (4.6-6.2); White Blood Count 8.8 K/mm3 (4.4-11.0)
[2021-07-17 12:26] LABS: Hemoglobin A1c 5.9 % (3.8-5.6)
[2021-07-17 12:54] LABS: ALB/GLOB Ratio 0.5 RATIO (0.9-2.4); AST(SGOT) 20 U/L (15-37); Alanine Aminotransfer ALT/SGPT 22 U/L (16-61); Alkaline Phosphatase 167 U/L (45-117); Anion Gap 4 (5-15); BUN 64 mg/dL (7-18); BUN/Creat Ratio 29.8 RATIO (10-20); Calcium,Total 8.9 mg/dL (8.5-10.1); Chloride 111 mmol/L (98-107); Cholesterol 79 mg/dL (200); Creatinine, Serum 2.15 mg/dL (0.70-1.30); EST Glomerular Filtration Rate 32 mL/min (>60); Est Glom Filt Rate - Afr Amer 38 mL/min (>60); Globulin 5.8 g/dL (2.2-4.2); Glucose 111 mg/dL (74-106); High Density Lipoprotein 32 mg/dL; Potassium 4.8 mmol/L (3.5-5.1); Protein, Total 8.8 g/dL (6.4-8.2); Sodium Level 139 mmol/L (136-145); T4 Free Direct 0.77 ng/dL (0.76-1.46); Thyroid Stim Hormone (TSH) 5.75 uIU/mL (0.358-3.74); Triglycerides 57 mg/dL; Very Low Density Lipoprotein 11 mg/dL (5-40)
[2021-07-17 13:00] LABS: Microalbumin:Creatinine Ratio 996.8 mg/g CRE (<30 mg/g CRE)
== END ==
PROVIDERS: PCP Family Medicine; Referring Provider Internal Medicine; Visit Provider Internal Medicine
DX: E11.65 Type 2 diabetes mellitus with hyperglycemia (principal); Z79.4 Long term (current) use of insulin
CPT/HCPCS: 36415; 80053; 80061; 82043; 82570; 83036; 84439; 84443; 85027

== ENCOUNTER → 2021-08-17 14:48 | Outpatient (CLI) | payer MEDICARE, OTHER, SELFPAY ==
[2021-08-17 15:12] LABS: Absolute Lymphocyte Count 1.31 X10^3/uL (0.83-4.51); Absolute Neutrophil Count 5.8 X10^3/uL (2.0-7.7); Basophil# 0.04 X10^3/uL; Basophil% 0.5 % (0-1); Eosinophils% 2.5 % (0-5); Hematocrit 36.1 % (40-54); Hemoglobin 10.9 g/dL (13.0-16.5); Lymphocyte # 1.31 X10^3/ul (0.83-4.51); Lymphocyte % 16.4 % (19-41); Mean Corp Hgb Conc 30.2 g/dL (32-36); Mean Corpuscular Hgb 30.2 pg (27.0-32.0); Mean Platelet Vol. 10.4 fl (6.2-12.0); Monocyte# 0.64 X10^3/uL; NRBC Flagged by Analyzer 0 % (0-5); Neutrophil # 5.76 X10^3/uL (2.7-7.7); Neutrophil % 72.3 % (47-70); Platelet Count 160 K/mm3 (150-450); RBC Distribution Width CV 15.7 % (11.6-14.6); RBC Distribution Width SD 58.3 fl (35.1-43.9); Red Blood Count 3.61 M/mm3 (4.6-6.2)
[2021-08-17 15:33] LABS: Albumin, Serum 3.1 g/dL (3.2-5.0); BUN 72 mg/dL (7-18); BUN/Creat Ratio 34.8 RATIO (10-20); Calcium,Total 8.9 mg/dL (8.5-10.1); Chloride 110 mmol/L (98-107); Creatinine, Serum 2.07 mg/dL (0.70-1.30); EST Glomerular Filtration Rate 33 mL/min (>60); Est Glom Filt Rate - Afr Amer 40 mL/min (>60); Ferritin 532 ng/mL (26-388); Glucose 106 mg/dL (74-106); Iron 59 ug/dL (65-175); Iron Binding Capacity,Total 260 ug/dL (250-450); Phosphorus 3.9 mg/dL (2.5-4.9); Potassium 4.5 mmol/L (3.5-5.1); Sodium Level 139 mmol/L (136-145)
[2021-08-17 23:10] LABS: Xtra Tube EP Lab EXTRA TUBE
== END ==
PROVIDERS: PCP Family Medicine; Referring Provider Internal Medicine Nephrology; Visit Provider Internal Medicine Nephrology
DX: N18.5 Chronic kidney disease, stage 5 (principal); D63.1 Anemia in chronic kidney disease
CPT/HCPCS: 36415; 80069; 82728; 83540; 83550; 85025

== ENCOUNTER → 2021-09-10 14:48 | Outpatient (CLI) | payer MEDICARE, OTHER, SELFPAY ==
[2021-09-10 15:10] LABS: Absolute Lymphocyte Count 1.16 X10^3/uL (0.83-4.51); Absolute Neutrophil Count 6.3 X10^3/uL (2.0-7.7); Basophil# 0.03 X10^3/uL; Basophil% 0.4 % (0-1); Eosinophil# 0.15 X10^3/uL; Eosinophils% 1.8 % (0-5); Hematocrit 36.4 % (40-54); Hemoglobin 10.9 g/dL (13.0-16.5); Lymphocyte # 1.16 X10^3/ul (0.83-4.51); Lymphocyte % 14.1 % (19-41); Mean Corp Hgb Conc 29.9 g/dL (32-36); Mean Corpuscular Hgb 29.9 pg (27.0-32.0); Mean Corpuscular Volume 99.7 fL (80-94); Mean Platelet Vol. 10.5 fl (6.2-12.0); Monocyte# 0.55 X10^3/uL; Monocyte% 6.7 % (0-10); NRBC Flagged by Analyzer 0 % (0-5); Neutrophil # 6.29 X10^3/uL (2.7-7.7); Neutrophil % 76.5 % (47-70); Platelet Count 144 K/mm3 (150-450); RBC Distribution Width CV 15.9 % (11.6-14.6); RBC Distribution Width SD 57.4 fl (35.1-43.9); Red Blood Count 3.65 M/mm3 (4.6-6.2); White Blood Count 8.2 K/mm3 (4.4-11.0)
[2021-09-10 15:24] LABS: Albumin, Serum 2.9 g/dL (3.2-5.0); BUN 49 mg/dL (7-18); BUN/Creat Ratio 24.6 RATIO (10-20); Calcium,Total 8.7 mg/dL (8.5-10.1); Chloride 110 mmol/L (98-107); Creatinine, Serum 1.99 mg/dL (0.70-1.30); EST Glomerular Filtration Rate 35 mL/min (>60); Est Glom Filt Rate - Afr Amer 42 mL/min (>60); Ferritin 439 ng/mL (26-388); Glucose 131 mg/dL (74-106); Iron 54 ug/dL (65-175); Iron Binding Capacity,Total 246 ug/dL (250-450); Phosphorus 3.5 mg/dL (2.5-4.9); Sodium Level 138 mmol/L (136-145)
[2021-09-11 07:34] LABS: PTHIN 97.8 pg/mL (18.4-80.1)
== END ==
PROVIDERS: PCP Family Medicine; Referring Provider Internal Medicine Nephrology; Visit Provider Internal Medicine Nephrology
DX: N18.5 Chronic kidney disease, stage 5 (principal); D63.1 Anemia in chronic kidney disease
CPT/HCPCS: 36415; 80069; 82728; 83540; 83550; 83970; 85025

== ENCOUNTER → 2021-10-08 14:44 | Outpatient (CLI) | payer MEDICARE, OTHER, SELFPAY ==
[2021-10-08 15:08] LABS: Absolute Lymphocyte Count 1.21 X10^3/uL (0.83-4.51); Absolute Neutrophil Count 6.5 X10^3/uL (2.0-7.7); Basophil# 0.03 X10^3/uL; Basophil% 0.3 % (0-1); Eosinophil# 0.23 X10^3/uL; Eosinophils% 2.7 % (0-5); Hematocrit 35.7 % (40-54); Hemoglobin 11.4 g/dL (13.0-16.5); Lymphocyte # 1.21 X10^3/ul (0.83-4.51); Lymphocyte % 14.1 % (19-41); Mean Corp Hgb Conc 31.9 g/dL (32-36); Mean Corpuscular Hgb 30.7 pg (27.0-32.0); Mean Corpuscular Volume 96.2 fL (80-94); Mean Platelet Vol. 10.8 fl (6.2-12.0); Monocyte# 0.59 X10^3/uL; Monocyte% 6.9 % (0-10); NRBC Flagged by Analyzer 0 % (0-5); Neutrophil # 6.51 X10^3/uL (2.7-7.7); Neutrophil % 75.7 % (47-70); Platelet Count 163 K/mm3 (150-450); RBC Distribution Width CV 15.9 % (11.6-14.6); RBC Distribution Width SD 55.5 fl (35.1-43.9); Red Blood Count 3.71 M/mm3 (4.6-6.2); White Blood Count 8.6 K/mm3 (4.4-11.0)
[2021-10-08 15:30] LABS: Albumin, Serum 2.8 g/dL (3.2-5.0); BUN 57 mg/dL (7-18); Chloride 102 mmol/L (98-107); Creatinine, Serum 2.28 mg/dL (0.70-1.30); EST Glomerular Filtration Rate 30 mL/min (>60); Est Glom Filt Rate - Afr Amer 36 mL/min (>60); Ferritin 438 ng/mL (26-388); Glucose 198 mg/dL (74-106); Iron 63 ug/dL (65-175); Iron Binding Capacity,Total 229 ug/dL (250-450); PERCENT IRON SATURATION 27.5 % (15.0-55.0); Phosphorus 3.2 mg/dL (2.5-4.9); Potassium 4.4 mmol/L (3.5-5.1); Sodium Level 136 mmol/L (136-145)
== END ==
PROVIDERS: PCP Family Medicine; Referring Provider Internal Medicine Nephrology; Visit Provider Internal Medicine Nephrology
DX: N18.5 Chronic kidney disease, stage 5 (principal); D63.1 Anemia in chronic kidney disease
CPT/HCPCS: 36415; 80069; 82728; 83540; 83550; 85025

== ENCOUNTER → 2021-10-20 09:05 | Outpatient (CLI) | payer MEDICARE, OTHER, SELFPAY ==
[2021-10-20 10:05] LABS: Hematocrit 36.1 % (40-54); Hemoglobin 11.3 g/dL (13.0-16.5); Mean Corp Hgb Conc 31.3 g/dL (32-36); Mean Corpuscular Hgb 30.5 pg (27.0-32.0); Mean Corpuscular Volume 97.6 fL (80-94); Mean Platelet Vol. 10.9 fl (6.2-12.0); Platelet Count 149 K/mm3 (150-450); RBC Distribution Width CV 15.9 % (11.6-14.6); RBC Distribution Width SD 56.5 fl (35.1-43.9); White Blood Count 7.9 K/mm3 (4.4-11.0)
[2021-10-20 10:24] LABS: Hemoglobin A1c 6.2 % (3.8-5.6)
[2021-10-20 10:40] LABS: ALB/GLOB Ratio 0.5 RATIO (0.9-2.4); AST(SGOT) 27 U/L (15-37); Alanine Aminotransfer ALT/SGPT 22 U/L (16-61); Albumin, Serum 2.9 g/dL (3.2-5.0); Alkaline Phosphatase 224 U/L (45-117); Anion Gap 7 (5-15); BUN 49 mg/dL (7-18); BUN/Creat Ratio 23.2 RATIO (10-20); Chloride 108 mmol/L (98-107); Creatinine, Serum 2.11 mg/dL (0.70-1.30); EST Glomerular Filtration Rate 32 mL/min (>60); Est Glom Filt Rate - Afr Amer 39 mL/min (>60); Globulin 6.1 g/dL (2.2-4.2); Glucose 142 mg/dL (74-106); Potassium 4.5 mmol/L (3.5-5.1); Sodium Level 139 mmol/L (136-145); Thyroid Stim Hormone (TSH) 6.31 uIU/mL (0.358-3.74); Uric Acid 6.2 mg/dL (3.5-7.2)
== END ==
PROVIDERS: PCP Family Medicine; Referring Provider Internal Medicine; Visit Provider Internal Medicine
DX: E11.9 Type 2 diabetes mellitus without complications (principal)
CPT/HCPCS: 36415; 80053; 83036; 84443; 84550; 85027

== ENCOUNTER → 2021-11-03 09:56 | Outpatient (CLI) | payer MEDICARE, OTHER, SELFPAY ==
[2021-11-03 12:38] LABS: Absolute Neutrophil Count 6.3 X10^3/uL (2.0-7.7); Basophil# 0.04 X10^3/uL; Basophil% 0.4 % (0-1); Eosinophil# 0.27 X10^3/uL; Hematocrit 36.8 % (40-54); Hemoglobin 11.4 g/dL (13.0-16.5); Mean Corpuscular Hgb 30.4 pg (27.0-32.0); Mean Corpuscular Volume 98.1 fL (80-94); Mean Platelet Vol. 11.5 fl (6.2-12.0); Monocyte# 0.64 X10^3/uL; Monocyte% 7.2 % (0-10); NRBC Flagged by Analyzer 0 % (0-5); Neutrophil # 6.26 X10^3/uL (2.7-7.7); Neutrophil % 70.1 % (47-70); Platelet Count 158 K/mm3 (150-450); RBC Distribution Width CV 15.7 % (11.6-14.6); RBC Distribution Width SD 55.8 fl (35.1-43.9); Red Blood Count 3.75 M/mm3 (4.6-6.2); White Blood Count 8.9 K/mm3 (4.4-11.0)
[2021-11-03 13:04] LABS: BUN 59 mg/dL (7-18); BUN/Creat Ratio 26.2 RATIO (10-20); Calcium,Total 9.3 mg/dL (8.5-10.1); Chloride 107 mmol/L (98-107); Creatinine, Serum 2.25 mg/dL (0.70-1.30); EST Glomerular Filtration Rate 30 mL/min (>60); Est Glom Filt Rate - Afr Amer 36 mL/min (>60); Ferritin 372 ng/mL (26-388); Glucose 136 mg/dL (74-106); Iron 64 ug/dL (65-175); Iron Binding Capacity,Total 243 ug/dL (250-450); PERCENT IRON SATURATION 26.3 % (15.0-55.0); Phosphorus 3.4 mg/dL (2.5-4.9); Potassium 4.6 mmol/L (3.5-5.1); Sodium Level 141 mmol/L (136-145); Uric Acid 6.1 mg/dL (3.5-7.2)
[2021-11-03 13:16] LABS: Protein, Urine (Random) 113.2 mg/dL (<11.9); Protein:Creat Ratio 1011 mg/g CRE (0-200)
[2021-11-03 13:24] LABS: PTHIN 81.5 pg/mL (18.4-80.1)
== END ==
PROVIDERS: PCP Family Medicine; Referring Provider Internal Medicine Nephrology; Visit Provider Internal Medicine Nephrology
DX: I12.9 Hypertensive chronic kidney disease with stage 1 through stage 4 chronic kidney disease, or unspecified chronic kidney disease (principal); N18.4 Chronic kidney disease, stage 4 (severe); D63.1 Anemia in chronic kidney disease
CPT/HCPCS: 36415; 80069; 82570; 82728; 83540; 83550; 83970; 84156; 84550; 85025

== ENCOUNTER → 2021-11-05 14:44 | Outpatient (CLI) | payer MEDICARE, OTHER, SELFPAY ==
[2021-11-05 15:13] LABS: Absolute Lymphocyte Count 1.28 X10^3/uL (0.83-4.51); Absolute Neutrophil Count 5.5 X10^3/uL (2.0-7.7); Basophil# 0.03 X10^3/uL; Basophil% 0.4 % (0-1); Eosinophil# 0.22 X10^3/uL; Eosinophils% 2.9 % (0-5); Hematocrit 36.1 % (40-54); Hemoglobin 11.4 g/dL (13.0-16.5); Lymphocyte # 1.28 X10^3/ul (0.83-4.51); Lymphocyte % 16.8 % (19-41); Mean Corp Hgb Conc 31.6 g/dL (32-36); Mean Corpuscular Hgb 30.7 pg (27.0-32.0); Mean Corpuscular Volume 97.3 fL (80-94); Mean Platelet Vol. 11.1 fl (6.2-12.0); Monocyte# 0.57 X10^3/uL; Monocyte% 7.5 % (0-10); NRBC Flagged by Analyzer 0 % (0-5); Neutrophil # 5.51 X10^3/uL (2.7-7.7); Platelet Count 140 K/mm3 (150-450); RBC Distribution Width CV 15.5 % (11.6-14.6); RBC Distribution Width SD 55.3 fl (35.1-43.9); Red Blood Count 3.71 M/mm3 (4.6-6.2); White Blood Count 7.6 K/mm3 (4.4-11.0)
[2021-11-05 15:32] LABS: Albumin, Serum 2.8 g/dL (3.2-5.0); BUN 62 mg/dL (7-18); BUN/Creat Ratio 27.2 RATIO (10-20); Calcium,Total 8.8 mg/dL (8.5-10.1); Chloride 109 mmol/L (98-107); Creatinine, Serum 2.28 mg/dL (0.70-1.30); EST Glomerular Filtration Rate 30 mL/min (>60); Est Glom Filt Rate - Afr Amer 36 mL/min (>60); Ferritin 363 ng/mL (26-388); Glucose 153 mg/dL (74-106); Iron 67 ug/dL (65-175); Iron Binding Capacity,Total 281 ug/dL (250-450); Phosphorus 3.1 mg/dL (2.5-4.9); Potassium 4.7 mmol/L (3.5-5.1); Sodium Level 139 mmol/L (136-145)
== END ==
PROVIDERS: PCP Family Medicine; Referring Provider Internal Medicine Nephrology; Visit Provider Internal Medicine Nephrology
DX: N18.5 Chronic kidney disease, stage 5 (principal); D63.1 Anemia in chronic kidney disease
CPT/HCPCS: 36415; 80069; 82728; 83540; 83550; 85025

== ENCOUNTER 2021-12-21 15:08 | Outpatient (CLI) | payer MEDICARE, OTHER, SELFPAY ==
[2021-12-21 15:39] LABS: Absolute Lymphocyte Count 1.78 X10^3/uL (0.83-4.51); Basophil# 0.04 X10^3/uL; Basophil% 0.5 % (0-1); Eosinophil# 0.33 X10^3/uL; Eosinophils% 4.2 % (0-5); Hematocrit 34.5 % (40-54); Hemoglobin 11.3 g/dL (13.0-16.5); Lymphocyte # 1.78 X10^3/ul (0.83-4.51); Lymphocyte % 22.7 % (19-41); Mean Corp Hgb Conc 32.8 g/dL (32-36); Mean Corpuscular Hgb 31.1 pg (27.0-32.0); Mean Platelet Vol. 10.4 fl (6.2-12.0); Monocyte# 0.63 X10^3/uL; NRBC Flagged by Analyzer 0 % (0-5); Neutrophil # 5.02 X10^3/uL (2.7-7.7); Neutrophil % 64.1 % (47-70); Platelet Count 140 K/mm3 (150-450); RBC Distribution Width CV 14.8 % (11.6-14.6); Red Blood Count 3.63 M/mm3 (4.6-6.2); White Blood Count 7.8 K/mm3 (4.4-11.0)
[2021-12-21 15:55] LABS: BUN 80 mg/dL (7-18); BUN/Creat Ratio 31.5 RATIO (10-20); Calcium,Total 8.9 mg/dL (8.5-10.1); Chloride 107 mmol/L (98-107); Creatinine, Serum 2.54 mg/dL (0.70-1.30); EST Glomerular Filtration Rate 26 mL/min (>60); Est Glom Filt Rate - Afr Amer 32 mL/min (>60); Ferritin 356 ng/mL (26-388); Glucose 159 mg/dL (74-106); Iron 79 ug/dL (65-175); Iron Binding Capacity,Total 228 ug/dL (250-450); PERCENT IRON SATURATION 34.6 % (15.0-55.0); Phosphorus 2.6 mg/dL (2.5-4.9); Potassium 4.5 mmol/L (3.5-5.1); Sodium Level 138 mmol/L (136-145)
[2021-12-22 08:46] LABS: PTHIN 43.1 pg/mL (18.4-80.1)
== END 2021-12-21 23:59 | disposition short-term general hospital (02) ==
LOC: MEDOUTP 15:12
PROVIDERS: PCP Family Medicine; Referring Provider Internal Medicine Nephrology; Visit Provider Internal Medicine Nephrology
DX: N18.5 Chronic kidney disease, stage 5 (principal); D63.1 Anemia in chronic kidney disease
CPT/HCPCS: 36415; 80069; 82728; 83540; 83550; 83970; 85025

== ENCOUNTER 2022-01-18 15:12 | Outpatient (CLI) | payer MEDICARE, OTHER, SELFPAY ==
[2022-01-18 15:31] LABS: Absolute Lymphocyte Count 1.51 X10^3/uL (0.83-4.51); Absolute Neutrophil Count 7.7 X10^3/uL (2.0-7.7); Basophil# 0.03 X10^3/uL; Basophil% 0.3 % (0-1); Eosinophil# 0.06 X10^3/uL; Eosinophils% 0.6 % (0-5); Hematocrit 37.1 % (40-54); Hemoglobin 12.3 g/dL (13.0-16.5); Lymphocyte # 1.51 X10^3/ul (0.83-4.51); Lymphocyte % 15.2 % (19-41); Mean Corp Hgb Conc 33.2 g/dL (32-36); Mean Corpuscular Hgb 31.7 pg (27.0-32.0); Mean Corpuscular Volume 95.6 fL (80-94); Mean Platelet Vol. 10.9 fl (6.2-12.0); Monocyte# 0.63 X10^3/uL; Monocyte% 6.3 % (0-10); NRBC Flagged by Analyzer 0 % (0-5); Neutrophil # 7.67 X10^3/uL (2.7-7.7); Neutrophil % 77.2 % (47-70); Platelet Count 143 K/mm3 (150-450); RBC Distribution Width CV 14.8 % (11.6-14.6); RBC Distribution Width SD 51.5 fl (35.1-43.9); Red Blood Count 3.88 M/mm3 (4.6-6.2); White Blood Count 9.9 K/mm3 (4.4-11.0)
[2022-01-18 15:58] LABS: Albumin, Serum 3.2 g/dL (3.2-5.0); BUN 82 mg/dL (7-18); BUN/Creat Ratio 37.1 RATIO (10-20); Calcium,Total 8.4 mg/dL (8.5-10.1); Chloride 105 mmol/L (98-107); Creatinine, Serum 2.21 mg/dL (0.70-1.30); EST Glomerular Filtration Rate 31 mL/min (>60); Est Glom Filt Rate - Afr Amer 37 mL/min (>60); Ferritin 241 ng/mL (26-388); Glucose 225 mg/dL (74-106); Iron 94 ug/dL (65-175); Iron Binding Capacity,Total 239 ug/dL (250-450); PERCENT IRON SATURATION 39.3 % (15.0-55.0); Phosphorus 2.4 mg/dL (2.5-4.9); Potassium 4.4 mmol/L (3.5-5.1); Sodium Level 138 mmol/L (136-145)
== END 2022-01-18 23:59 | disposition home or self-care (01) ==
LOC: MEDOUTP 15:12
PROVIDERS: PCP Family Medicine; Referring Provider Internal Medicine Nephrology; Visit Provider Internal Medicine Nephrology
DX: N18.5 Chronic kidney disease, stage 5 (principal); D63.1 Anemia in chronic kidney disease
CPT/HCPCS: 36415; 80069; 82728; 83540; 83550; 85025

== ENCOUNTER 2022-01-25 09:05 | Outpatient (CLI) | payer MEDICARE, OTHER, SELFPAY ==
[2022-01-25 10:02] LABS: Hematocrit 39.6 % (40-54); Hemoglobin 12.7 g/dL (13.0-16.5); Mean Corp Hgb Conc 32.1 g/dL (32-36); Mean Corpuscular Hgb 31.3 pg (27.0-32.0); Mean Corpuscular Volume 97.5 fL (80-94); Mean Platelet Vol. 10.6 fl (6.2-12.0); Platelet Count 151 K/mm3 (150-450); RBC Distribution Width CV 14.5 % (11.6-14.6); RBC Distribution Width SD 52.1 fl (35.1-43.9); Red Blood Count 4.06 M/mm3 (4.6-6.2); White Blood Count 10.6 K/mm3 (4.4-11.0)
[2022-01-25 10:47] LABS: Hemoglobin A1c 6.6 % (3.8-5.6)
[2022-01-25 11:02] LABS: Anion Gap 2 (5-15); BUN 76 mg/dL (7-18); BUN/Creat Ratio 34.9 RATIO (10-20); Calcium,Total 8.8 mg/dL (8.5-10.1); Chloride 105 mmol/L (98-107); Creatinine, Serum 2.18 mg/dL (0.70-1.30); EST Glomerular Filtration Rate 31 mL/min (>60); Est Glom Filt Rate - Afr Amer 38 mL/min (>60); Glucose 120 mg/dL (74-106); Potassium 4.8 mmol/L (3.5-5.1); Sodium Level 138 mmol/L (136-145)
== END 2022-01-25 23:59 | disposition home or self-care (01) ==
LOC: MTLAB 09:07
PROVIDERS: PCP Family Medicine; Referring Provider Internal Medicine; Visit Provider Internal Medicine
DX: E11.9 Type 2 diabetes mellitus without complications (principal)
CPT/HCPCS: 36415; 80048; 83036; 85027

== ENCOUNTER 2022-02-15 14:45 | Outpatient (CLI) | payer MEDICARE, OTHER, SELFPAY ==
[2022-02-15 15:00] LABS: Absolute Lymphocyte Count 1.47 X10^3/uL (0.83-4.51); Absolute Neutrophil Count 7.7 X10^3/uL (2.0-7.7); Basophil# 0.02 X10^3/uL; Basophil% 0.2 % (0-1); Eosinophil# 0.14 X10^3/uL; Eosinophils% 1.4 % (0-5); Hematocrit 32.4 % (40-54); Hemoglobin 10.6 g/dL (13.0-16.5); Lymphocyte # 1.47 X10^3/ul (0.83-4.51); Lymphocyte % 14.8 % (19-41); Mean Corp Hgb Conc 32.7 g/dL (32-36); Mean Corpuscular Hgb 32.3 pg (27.0-32.0); Mean Corpuscular Volume 98.8 fL (80-94); Monocyte# 0.64 X10^3/uL; Monocyte% 6.4 % (0-10); NRBC Flagged by Analyzer 0 % (0-5); Neutrophil # 7.65 X10^3/uL (2.7-7.7); Neutrophil % 76.8 % (47-70); Platelet Count 127 K/mm3 (150-450); RBC Distribution Width CV 14.8 % (11.6-14.6); RBC Distribution Width SD 53.1 fl (35.1-43.9); Red Blood Count 3.28 M/mm3 (4.6-6.2)
[2022-02-15 15:15] LABS: Albumin, Serum 3.2 g/dL (3.2-5.0); BUN 75 mg/dL (7-18); BUN/Creat Ratio 34.2 RATIO (10-20); Calcium,Total 9.3 mg/dL (8.5-10.1); Chloride 110 mmol/L (98-107); Creatinine, Serum 2.19 mg/dL (0.70-1.30); EST Glomerular Filtration Rate 31 mL/min (>60); Est Glom Filt Rate - Afr Amer 37 mL/min (>60); Ferritin 257 ng/mL (26-388); Glucose 139 mg/dL (74-106); Iron 78 ug/dL (65-175); Iron Binding Capacity,Total 250 ug/dL (250-450); PERCENT IRON SATURATION 31.2 % (15.0-55.0); Phosphorus 3.3 mg/dL (2.5-4.9); Potassium 4.7 mmol/L (3.5-5.1); Sodium Level 141 mmol/L (136-145)
== END 2022-02-15 23:59 | disposition home or self-care (01) ==
LOC: MEDOUTP 14:45
PROVIDERS: PCP Family Medicine; Referring Provider Internal Medicine Nephrology; Visit Provider Internal Medicine Nephrology
DX: N18.5 Chronic kidney disease, stage 5 (principal); D63.1 Anemia in chronic kidney disease
CPT/HCPCS: 36415; 80069; 82728; 83540; 83550; 85025

== ENCOUNTER → 2022-03-15 | Outpatient (CLI) | payer MEDICARE, OTHER, SELFPAY ==
[2022-03-15 14:47] VITALS: BP 128/61; PULSE 74; RESP 20; TEMP 36.6; O2SAT 100; BMI 41.5
[2022-03-15 15:07] LABS: Absolute Lymphocyte Count 1.54 X10^3/uL (0.83-4.51); Basophil# 0.03 X10^3/uL; Basophil% 0.3 % (0-1); Eosinophil# 0.13 X10^3/uL; Eosinophils% 1.4 % (0-5); Hematocrit 31.4 % (40-54); Hemoglobin 9.9 g/dL (13.0-16.5); Lymphocyte # 1.54 X10^3/ul (0.83-4.51); Lymphocyte % 16.5 % (19-41); Mean Corp Hgb Conc 31.5 g/dL (32-36); Mean Corpuscular Hgb 31.7 pg (27.0-32.0); Mean Corpuscular Volume 100.6 fL (80-94); Mean Platelet Vol. 9.9 fl (6.2-12.0); Monocyte# 0.52 X10^3/uL; Monocyte% 5.6 % (0-10); NRBC Flagged by Analyzer 0 % (0-5); Neutrophil # 6.96 X10^3/uL (2.7-7.7); Neutrophil % 74.8 % (47-70); Platelet Count 134 K/mm3 (150-450); RBC Distribution Width CV 15.5 % (11.6-14.6); RBC Distribution Width SD 56.5 fl (35.1-43.9); Red Blood Count 3.12 M/mm3 (4.6-6.2); White Blood Count 9.3 K/mm3 (4.4-11.0)
[2022-03-15 15:27] LABS: Albumin, Serum 3.1 g/dL (3.2-5.0); BUN 92 mg/dL (7-18); BUN/Creat Ratio 31.6 RATIO (10-20); Calcium,Total 8.9 mg/dL (8.5-10.1); Chloride 108 mmol/L (98-107); Creatinine, Serum 2.91 mg/dL (0.70-1.30); EST Glomerular Filtration Rate 22 mL/min (>60); Est Glom Filt Rate - Afr Amer 27 mL/min (>60); Estimated Creatinine Clearance 17.61 ml/min; Ferritin 237 ng/mL (26-388); Glucose 233 mg/dL (74-106); Iron 69 ug/dL (65-175); Iron Binding Capacity,Total 254 ug/dL (250-450); PERCENT IRON SATURATION 27.2 % (15.0-55.0); Potassium 4.5 mmol/L (3.5-5.1); Sodium Level 139 mmol/L (136-145)
[2022-03-15] MEDS: Epoetin Alfa epbx 10,000 UNITS/ML 10000 UNIT SC (15:34)
== END | disposition home or self-care (01) ==
LOC: MEDOUTP 14:40
PROVIDERS: PCP Family Medicine; Referring Provider Internal Medicine Nephrology; Visit Provider Internal Medicine Nephrology
DX: N18.5 Chronic kidney disease, stage 5 (principal); D63.1 Anemia in chronic kidney disease
CPT/HCPCS: 36415; 80069; 82728; 83540; 83550; 83970; 85025; 96372; Q5106

== ENCOUNTER → 2022-03-29 | Outpatient (CLI) | payer MEDICARE, OTHER, SELFPAY ==
[2022-03-29 12:14] LABS: Absolute Lymphocyte Count 1.98 X10^3/uL (0.83-4.51); Absolute Neutrophil Count 6.7 X10^3/uL (2.0-7.7); Basophil# 0.06 X10^3/uL; Basophil% 0.6 % (0-1); Eosinophil# 0.27 X10^3/uL; Eosinophils% 2.8 % (0-5); Hematocrit 33.4 % (40-54); Hemoglobin 10.5 g/dL (13.0-16.5); Lymphocyte # 1.98 X10^3/ul (0.83-4.51); Lymphocyte % 20.2 % (19-41); Mean Corp Hgb Conc 31.4 g/dL (32-36); Mean Corpuscular Hgb 31.5 pg (27.0-32.0); Mean Corpuscular Volume 100.3 fL (80-94); Mean Platelet Vol. 10.8 fl (6.2-12.0); Monocyte# 0.66 X10^3/uL; Monocyte% 6.7 % (0-10); NRBC Flagged by Analyzer 0 % (0-5); Neutrophil # 6.72 X10^3/uL (2.7-7.7); Neutrophil % 68.7 % (47-70); Platelet Count 164 K/mm3 (150-450); RBC Distribution Width CV 15.1 % (11.6-14.6); Red Blood Count 3.33 M/mm3 (4.6-6.2); White Blood Count 9.8 K/mm3 (4.4-11.0)
[2022-03-29 12:30] LABS: PTHIN 143.9 pg/mL (18.4-80.1)
[2022-03-29 12:35] LABS: Protein, Urine (Random) 81.6 mg/dL (<11.9); Protein:Creat Ratio 902 mg/g CRE (0-200)
[2022-03-29 12:46] LABS: BUN 61 mg/dL (7-18); BUN/Creat Ratio 27.5 RATIO (10-20); Calcium,Total 8.1 mg/dL (8.5-10.1); Chloride 109 mmol/L (98-107); Creatinine, Serum 2.22 mg/dL (0.70-1.30); EST Glomerular Filtration Rate 30 mL/min (>60); Est Glom Filt Rate - Afr Amer 37 mL/min (>60); Ferritin 209 ng/mL (26-388); Glucose 121 mg/dL (74-106); Iron 71 ug/dL (65-175); Iron Binding Capacity,Total 242 ug/dL (250-450); PERCENT IRON SATURATION 29.3 % (15.0-55.0); Phosphorus 2.5 mg/dL (2.5-4.9); Potassium 4.4 mmol/L (3.5-5.1); Sodium Level 140 mmol/L (136-145); Uric Acid 5.8 mg/dL (3.5-7.2)
== END | disposition home or self-care (01) ==
PROVIDERS: PCP Family Medicine; Referring Provider Internal Medicine Nephrology; Visit Provider Internal Medicine Nephrology
DX: I12.9 Hypertensive chronic kidney disease with stage 1 through stage 4 chronic kidney disease, or unspecified chronic kidney disease (principal); N18.4 Chronic kidney disease, stage 4 (severe); D63.1 Anemia in chronic kidney disease
CPT/HCPCS: 36415; 80069; 82570; 82728; 83540; 83550; 83970; 84156; 84550; 85025

== ENCOUNTER → 2022-04-12 | Outpatient (CLI) | payer MEDICARE, OTHER, SELFPAY ==
[2022-04-12 15:07] LABS: Absolute Lymphocyte Count 1.61 X10^3/uL (0.83-4.51); Absolute Neutrophil Count 8.3 X10^3/uL (2.0-7.7); Basophil# 0.03 X10^3/uL; Basophil% 0.3 % (0-1); Eosinophils% 1.8 % (0-5); Hemoglobin 11.1 g/dL (13.0-16.5); Lymphocyte # 1.61 X10^3/ul (0.83-4.51); Lymphocyte % 14.7 % (19-41); Mean Corp Hgb Conc 32.6 g/dL (32-36); Mean Corpuscular Hgb 32.3 pg (27.0-32.0); Mean Corpuscular Volume 98.8 fL (80-94); Mean Platelet Vol. 9.4 fl (6.2-12.0); Monocyte# 0.76 X10^3/uL; Monocyte% 6.9 % (0-10); NRBC Flagged by Analyzer 0 % (0-5); Neutrophil # 8.31 X10^3/uL (2.7-7.7); Neutrophil % 75.8 % (47-70); Platelet Count 140 K/mm3 (150-450); RBC Distribution Width CV 14.2 % (11.6-14.6); Red Blood Count 3.44 M/mm3 (4.6-6.2)
[2022-04-12 15:34] LABS: BUN 62 mg/dL (7-18); BUN/Creat Ratio 24.7 RATIO (10-20); Chloride 100 mmol/L (98-107); Creatinine, Serum 2.51 mg/dL (0.70-1.30); EST Glomerular Filtration Rate 26 mL/min (>60); Est Glom Filt Rate - Afr Amer 32 mL/min (>60); Ferritin 250 ng/mL (26-388); Glucose 166 mg/dL (74-106); Iron 65 ug/dL (65-175); Iron Binding Capacity,Total 228 ug/dL (250-450); PERCENT IRON SATURATION 28.5 % (15.0-55.0); Phosphorus 3.2 mg/dL (2.5-4.9); Potassium 4.5 mmol/L (3.5-5.1); Sodium Level 137 mmol/L (136-145)
== END | disposition home or self-care (01) ==
LOC: MEDOUTP 14:47
PROVIDERS: PCP Family Medicine; Referring Provider Internal Medicine Nephrology; Visit Provider Internal Medicine Nephrology
DX: N18.5 Chronic kidney disease, stage 5 (principal); D63.1 Anemia in chronic kidney disease
CPT/HCPCS: 36415; 80069; 82728; 83540; 83550; 85025

== ENCOUNTER → 2022-05-17 | Outpatient (CLI) | payer MEDICARE, OTHER, SELFPAY ==
[2022-05-17 14:56] LABS: Absolute Lymphocyte Count 1.53 X10^3/uL (0.83-4.51); Absolute Neutrophil Count 12.1 X10^3/uL (2.0-7.7); Basophil# 0.05 X10^3/uL; Basophil% 0.3 % (0-1); Eosinophil# 0.27 X10^3/uL; Eosinophils% 1.8 % (0-5); Hematocrit 34.8 % (40-54); Hemoglobin 11.1 g/dL (13.0-16.5); Lymphocyte # 1.53 X10^3/ul (0.83-4.51); Lymphocyte % 10.3 % (19-41); Mean Corp Hgb Conc 31.9 g/dL (32-36); Mean Corpuscular Hgb 31.8 pg (27.0-32.0); Mean Corpuscular Volume 99.7 fL (80-94); Mean Platelet Vol. 10.1 fl (6.2-12.0); Monocyte# 0.76 X10^3/uL; Monocyte% 5.1 % (0-10); NRBC Flagged by Analyzer 0 % (0-5); Neutrophil # 12.09 X10^3/uL (2.7-7.7); Neutrophil % 81.8 % (47-70); Platelet Count 156 K/mm3 (150-450); RBC Distribution Width CV 14.2 % (11.6-14.6); RBC Distribution Width SD 51.1 fl (35.1-43.9); Red Blood Count 3.49 M/mm3 (4.6-6.2); White Blood Count 14.8 K/mm3 (4.4-11.0)
[2022-05-17 15:25] LABS: BUN 64 mg/dL (7-18); BUN/Creat Ratio 23.1 RATIO (10-20); Calcium,Total 9.8 mg/dL (8.5-10.1); Chloride 104 mmol/L (98-107); Creatinine, Serum 2.77 mg/dL (0.70-1.30); EST Glomerular Filtration Rate 24 mL/min (>60); Est Glom Filt Rate - Afr Amer 29 mL/min (>60); Ferritin 307 ng/mL (26-388); Glucose 302 mg/dL (74-106); Iron 49 ug/dL (65-175); Iron Binding Capacity,Total 232 ug/dL (250-450); PERCENT IRON SATURATION 21.1 % (15.0-55.0); Phosphorus 3.5 mg/dL (2.5-4.9); Potassium 4.4 mmol/L (3.5-5.1); Sodium Level 138 mmol/L (136-145)
== END | disposition home or self-care (01) ==
LOC: MEDOUTP 14:40
PROVIDERS: PCP Family Medicine; Referring Provider Internal Medicine Nephrology; Visit Provider Internal Medicine Nephrology
DX: N18.5 Chronic kidney disease, stage 5 (principal); D63.1 Anemia in chronic kidney disease
CPT/HCPCS: 36415; 80069; 82728; 83540; 83550; 85025

== ENCOUNTER → 2022-05-18 | Outpatient (CLI) | payer MEDICARE, OTHER, SELFPAY ==
[2022-05-18 12:46] LABS: Hematocrit 34.6 % (40-54); Mean Corp Hgb Conc 31.8 g/dL (32-36); Mean Corpuscular Hgb 31.7 pg (27.0-32.0); Mean Corpuscular Volume 99.7 fL (80-94); Mean Platelet Vol. 10.7 fl (6.2-12.0); Platelet Count 169 K/mm3 (150-450); RBC Distribution Width CV 14.3 % (11.6-14.6); RBC Distribution Width SD 51.8 fl (35.1-43.9); Red Blood Count 3.47 M/mm3 (4.6-6.2); White Blood Count 12.5 K/mm3 (4.4-11.0)
[2022-05-18 13:10] LABS: Hemoglobin A1c 6.3 % (3.8-5.6)
[2022-05-18 13:14] LABS: ALB/GLOB Ratio 0.5 RATIO (0.9-2.4); AST(SGOT) 18 U/L (15-37); Alanine Aminotransfer ALT/SGPT 23 U/L (16-61); Albumin, Serum 2.9 g/dL (3.2-5.0); Alkaline Phosphatase 140 U/L (45-117); Anion Gap 8 (5-15); BUN 65 mg/dL (7-18); BUN/Creat Ratio 23.7 RATIO (10-20); Calcium,Total 9.5 mg/dL (8.5-10.1); Chloride 103 mmol/L (98-107); Cholesterol 104 mg/dL (200); Creatinine, Serum 2.74 mg/dL (0.70-1.30); EST Glomerular Filtration Rate 24 mL/min (>60); Est Glom Filt Rate - Afr Amer 29 mL/min (>60); Globulin 5.5 g/dL (2.2-4.2); Glucose 115 mg/dL (74-106); High Density Lipoprotein 37 mg/dL; Potassium 4.2 mmol/L (3.5-5.1); Protein, Total 8.4 g/dL (6.4-8.2); Sodium Level 140 mmol/L (136-145); Thyroid Stim Hormone (TSH) 5.11 uIU/mL (0.358-3.74); Triglycerides 86 mg/dL; Very Low Density Lipoprotein 17 mg/dL (5-40)
== END | disposition home or self-care (01) ==
LOC: MTLAB 10:20
PROVIDERS: PCP Family Medicine; Referring Provider Internal Medicine; Visit Provider Internal Medicine
DX: E11.9 Type 2 diabetes mellitus without complications (principal)
CPT/HCPCS: 36415; 80053; 80061; 83036; 84443; 85027

== ENCOUNTER → 2022-06-14 | Outpatient (CLI) | payer MEDICARE, OTHER, SELFPAY ==
[2022-06-14 15:06] LABS: Absolute Lymphocyte Count 1.51 X10^3/uL (0.83-4.51); Absolute Neutrophil Count 6.3 X10^3/uL (2.0-7.7); Basophil# 0.03 X10^3/uL; Basophil% 0.3 % (0-1); Eosinophil# 0.23 X10^3/uL; Eosinophils% 2.6 % (0-5); Hemoglobin 10.9 g/dL (13.0-16.5); Lymphocyte # 1.51 X10^3/ul (0.83-4.51); Lymphocyte % 17.4 % (19-41); Mean Corp Hgb Conc 31.1 g/dL (32-36); Mean Corpuscular Hgb 31.1 pg (27.0-32.0); Mean Platelet Vol. 10.3 fl (6.2-12.0); Monocyte# 0.56 X10^3/uL; Monocyte% 6.4 % (0-10); NRBC Flagged by Analyzer 0 % (0-5); Neutrophil # 6.32 X10^3/uL (2.7-7.7); Neutrophil % 72.7 % (47-70); Platelet Count 139 K/mm3 (150-450); RBC Distribution Width CV 14.1 % (11.6-14.6); RBC Distribution Width SD 50.7 fl (35.1-43.9); White Blood Count 8.7 K/mm3 (4.4-11.0)
[2022-06-14 15:09] VITALS: BP 99/39; PULSE 56; RESP 18; TEMP 36.6; O2SAT 100; BMI 44.7
[2022-06-14 15:28] LABS: BUN 58 mg/dL (7-18); BUN/Creat Ratio 22.4 RATIO (10-20); Calcium,Total 9.2 mg/dL (8.5-10.1); Chloride 104 mmol/L (98-107); Creatinine, Serum 2.59 mg/dL (0.70-1.30); EST Glomerular Filtration Rate 25 mL/min (>60); Est Glom Filt Rate - Afr Amer 31 mL/min (>60); Estimated Creatinine Clearance 19.46 ml/min; Ferritin 210 ng/mL (26-388); Glucose 195 mg/dL (74-106); Iron 62 ug/dL (65-175); Iron Binding Capacity,Total 252 ug/dL (250-450); PERCENT IRON SATURATION 24.6 % (15.0-55.0); Phosphorus 2.6 mg/dL (2.5-4.9); Potassium 4.2 mmol/L (3.5-5.1); Sodium Level 141 mmol/L (136-145)
[2022-06-14 22:34] LABS: PTHIN 39.9 pg/mL (18.4-80.1)
== END | disposition home or self-care (01) ==
LOC: MEDOUTP 14:48
PROVIDERS: PCP Family Medicine; Referring Provider Internal Medicine Nephrology; Visit Provider Internal Medicine Nephrology
DX: N18.5 Chronic kidney disease, stage 5 (principal); D63.1 Anemia in chronic kidney disease
CPT/HCPCS: 36415; 80069; 82728; 83540; 83550; 83970; 85025

== ENCOUNTER → 2022-06-18 | Outpatient (CLI) | payer MEDICARE, OTHER, SELFPAY ==
[2022-06-18 15:01] LABS: International Normalized Ratio 2.8; Prothrombin Time (Protime)PT. 29.3 SECONDS (11.7-14.9)
[2022-06-18 15:10] LABS: ALB/GLOB Ratio 0.6 RATIO (0.9-2.4); AST(SGOT) 19 U/L (15-37); Alanine Aminotransfer ALT/SGPT 19 U/L (16-61); Alkaline Phosphatase 132 U/L (45-117); Anion Gap 4 (5-15); BUN 55 mg/dL (7-18); BUN/Creat Ratio 19.9 RATIO (10-20); Calcium,Total 9.3 mg/dL (8.5-10.1); Chloride 105 mmol/L (98-107); Cholesterol 92 mg/dL (200); Creatinine, Serum 2.76 mg/dL (0.70-1.30); EST Glomerular Filtration Rate 24 mL/min (>60); Est Glom Filt Rate - Afr Amer 29 mL/min (>60); Glucose 114 mg/dL (74-106); High Density Lipoprotein 31 mg/dL; Potassium 4.5 mmol/L (3.5-5.1); Sodium Level 139 mmol/L (136-145); Thyroid Stim Hormone (TSH) 5.65 uIU/mL (0.358-3.74); Triglycerides 114 mg/dL; Very Low Density Lipoprotein 23 mg/dL (5-40)
[2022-06-18 15:27] LABS: Microalbumin:Creatinine Ratio 173.8 mg/g CRE (<30 mg/g CRE)
[2022-06-18 15:41] LABS: Hepatitis C Antibody Non-Reactive (Nonreactive); Vitamin D,25 Hydroxy 48.5 ng/mL
== END | disposition home or self-care (01) ==
LOC: MTLAB 11:39
DX: Z00.00 Encounter for general adult medical examination without abnormal findings (principal); I13.0 Hypertensive heart and chronic kidney disease with heart failure and stage 1 through stage 4 chronic kidney disease, or unspecified chronic kidney disease; I50.30 Unspecified diastolic (congestive) heart failure; I48.0 Paroxysmal atrial fibrillation; N18.30 Chronic kidney disease, stage 3 unspecified; E78.2 Mixed hyperlipidemia; Z95.1 Presence of aortocoronary bypass graft
CPT/HCPCS: 36415; 80053; 80061; 82043; 82306; 82570; 84439; 84443; 85610; 86803

== ENCOUNTER → 2022-07-09 | Outpatient (CLI) | payer MEDICARE, OTHER, SELFPAY ==
[2022-07-09 15:16] LABS: Hematocrit 34.3 % (40-54); Hemoglobin 10.8 g/dL (13.0-16.5); Mean Corp Hgb Conc 31.5 g/dL (32-36); Mean Corpuscular Hgb 31.1 pg (27.0-32.0); Mean Corpuscular Volume 98.8 fL (80-94); Platelet Count 148 K/mm3 (150-450); RBC Distribution Width CV 14.2 % (11.6-14.6); RBC Distribution Width SD 51.2 fl (35.1-43.9); Red Blood Count 3.47 M/mm3 (4.6-6.2); White Blood Count 9.1 K/mm3 (4.4-11.0)
[2022-07-09 15:26] LABS: International Normalized Ratio 2.7; Prothrombin Time (Protime)PT. 28.2 SECONDS (11.7-14.9)
[2022-07-09 15:56] LABS: ALB/GLOB Ratio 0.6 RATIO (0.9-2.4); AST(SGOT) 24 U/L (15-37); Alanine Aminotransfer ALT/SGPT 19 U/L (16-61); Alkaline Phosphatase 145 U/L (45-117); Anion Gap 4 (5-15); BUN 65 mg/dL (7-18); Chloride 104 mmol/L (98-107); EST Glomerular Filtration Rate 27 mL/min (>60); Est Glom Filt Rate - Afr Amer 32 mL/min (>60); Globulin 5.2 g/dL (2.2-4.2); Glucose 147 mg/dL (74-106); Potassium 4.6 mmol/L (3.5-5.1); Protein, Total 8.2 g/dL (6.4-8.2); Sodium Level 137 mmol/L (136-145)
[2022-07-09 16:25] LABS: BNP,B-Type NATRIURETIC PEPTIDE 265.9 pg/mL (0-100)
== END | disposition home or self-care (01) ==
LOC: MTLAB 14:01
DX: R79.1 Abnormal coagulation profile (principal)
CPT/HCPCS: 36415; 80053; 83880; 85027; 85610

== ENCOUNTER → 2022-07-12 | Outpatient (CLI) | payer MEDICARE, OTHER, SELFPAY ==
[2022-07-12 15:51] LABS: Absolute Lymphocyte Count 1.55 X10^3/uL (0.83-4.51); Basophil# 0.03 X10^3/uL; Basophil% 0.4 % (0-1); Eosinophil# 0.24 X10^3/uL; Eosinophils% 2.8 % (0-5); Hematocrit 31.6 % (40-54); Hemoglobin 10.3 g/dL (13.0-16.5); Lymphocyte # 1.55 X10^3/ul (0.83-4.51); Lymphocyte % 18.2 % (19-41); Mean Corp Hgb Conc 32.6 g/dL (32-36); Mean Corpuscular Hgb 31.7 pg (27.0-32.0); Mean Corpuscular Volume 97.2 fL (80-94); Mean Platelet Vol. 10.7 fl (6.2-12.0); Monocyte# 0.59 X10^3/uL; Monocyte% 6.9 % (0-10); NRBC Flagged by Analyzer 0 % (0-5); Neutrophil # 6.03 X10^3/uL (2.7-7.7); Neutrophil % 70.9 % (47-70); Platelet Count 154 K/mm3 (150-450); RBC Distribution Width CV 14.6 % (11.6-14.6); RBC Distribution Width SD 50.8 fl (35.1-43.9); Red Blood Count 3.25 M/mm3 (4.6-6.2); White Blood Count 8.5 K/mm3 (4.4-11.0)
--- NOTE | 2022-07-12 16:06 | NURSING ---
RN called and notified Dr. Han's nurse about Pt's decreased Retacrit dose today.
[2022-07-12 16:10] VITALS: BP 131/58; PULSE 61; RESP 18; TEMP 36.1; O2SAT 100
[2022-07-12 16:12] LABS: Albumin, Serum 2.8 g/dL (3.2-5.0); BUN 63 mg/dL (7-18); Calcium,Total 9.2 mg/dL (8.5-10.1); Chloride 107 mmol/L (98-107); Creatinine, Serum 2.63 mg/dL (0.70-1.30); EST Glomerular Filtration Rate 25 mL/min (>60); Est Glom Filt Rate - Afr Amer 30 mL/min (>60); Ferritin 227 ng/mL (26-388); Glucose 182 mg/dL (74-106); Iron 66 ug/dL (65-175); Iron Binding Capacity,Total 228 ug/dL (250-450); PERCENT IRON SATURATION 28.9 % (15.0-55.0); Phosphorus 2.9 mg/dL (2.5-4.9); Potassium 4.2 mmol/L (3.5-5.1); Sodium Level 139 mmol/L (136-145)
[2022-07-12] MEDS: Epoetin Alfa epbx 10,000 UNITS/ML 7500 UNIT SC (16:13)
== END | disposition home or self-care (01) ==
LOC: MEDOUTP 14:50
PROVIDERS: Referring Provider Internal Medicine Nephrology; Visit Provider Internal Medicine Nephrology
DX: N18.5 Chronic kidney disease, stage 5 (principal); D63.1 Anemia in chronic kidney disease
CPT/HCPCS: 36415; 80069; 82728; 83540; 83550; 85025; 96372; Q5106

== ENCOUNTER → 2022-07-16 | Outpatient (CLI) | payer MEDICARE, OTHER, SELFPAY ==
[2022-07-16 15:18] LABS: International Normalized Ratio 1.7; Prothrombin Time (Protime)PT. 19.5 SECONDS (11.7-14.9)
== END | disposition home or self-care (01) ==
LOC: MTLAB 12:39
DX: R79.1 Abnormal coagulation profile (principal); Z79.01 Long term (current) use of anticoagulants
CPT/HCPCS: 36415; 85610

== ENCOUNTER → 2022-08-09 | Outpatient (CLI) | payer MEDICARE, OTHER, SELFPAY ==
[2022-08-09 15:01] LABS: Absolute Lymphocyte Count 2.02 X10^3/uL (0.83-4.51); Absolute Neutrophil Count 6.9 X10^3/uL (2.0-7.7); Basophil# 0.02 X10^3/uL; Basophil% 0.2 % (0-1); Eosinophil# 0.35 X10^3/uL; Eosinophils% 3.5 % (0-5); Hemoglobin 11.2 g/dL (13.0-16.5); Lymphocyte # 2.02 X10^3/ul (0.83-4.51); Lymphocyte % 20.2 % (19-41); Mean Corp Hgb Conc 32.9 g/dL (32-36); Mean Corpuscular Hgb 32.5 pg (27.0-32.0); Mean Corpuscular Volume 98.6 fL (80-94); Monocyte# 0.69 X10^3/uL; Monocyte% 6.9 % (0-10); NRBC Flagged by Analyzer 0 % (0-5); Neutrophil # 6.86 X10^3/uL (2.7-7.7); Neutrophil % 68.8 % (47-70); Platelet Count 147 K/mm3 (150-450); RBC Distribution Width CV 14.6 % (11.6-14.6); RBC Distribution Width SD 52.4 fl (35.1-43.9); Red Blood Count 3.45 M/mm3 (4.6-6.2)
[2022-08-09 15:19] LABS: Albumin, Serum 3.1 g/dL (3.2-5.0); BUN 69 mg/dL (7-18); Calcium,Total 10.8 mg/dL (8.5-10.1); Chloride 106 mmol/L (98-107); Creatinine, Serum 2.87 mg/dL (0.70-1.30); EST Glomerular Filtration Rate 23 mL/min (>60); Est Glom Filt Rate - Afr Amer 27 mL/min (>60); Ferritin 194 ng/mL (26-388); Glucose 114 mg/dL (74-106); Iron 74 ug/dL (65-175); Iron Binding Capacity,Total 217 ug/dL (250-450); PERCENT IRON SATURATION 34.1 % (15.0-55.0); Phosphorus 3.8 mg/dL (2.5-4.9); Potassium 4.3 mmol/L (3.5-5.1); Sodium Level 141 mmol/L (136-145)
== END | disposition home or self-care (01) ==
LOC: MEDOUTP 14:48
PROVIDERS: Referring Provider Internal Medicine Nephrology; Visit Provider Internal Medicine Nephrology
DX: N18.5 Chronic kidney disease, stage 5 (principal); N25.81 Secondary hyperparathyroidism of renal origin; D63.1 Anemia in chronic kidney disease
CPT/HCPCS: 36415; 80069; 82728; 83540; 83550; 85025

== ENCOUNTER → 2022-08-27 | Outpatient (CLI) | payer MEDICARE, OTHER, SELFPAY ==
[2022-08-27 15:09] LABS: Hematocrit 36.2 % (40-54); Hemoglobin 11.3 g/dL (13.0-16.5); Mean Corp Hgb Conc 31.2 g/dL (32-36); Mean Corpuscular Volume 99.5 fL (80-94); Mean Platelet Vol. 10.9 fl (6.2-12.0); Platelet Count 147 K/mm3 (150-450); RBC Distribution Width CV 14.4 % (11.6-14.6); RBC Distribution Width SD 51.9 fl (35.1-43.9); Red Blood Count 3.64 M/mm3 (4.6-6.2); White Blood Count 9.5 K/mm3 (4.4-11.0)
[2022-08-27 16:03] LABS: ALB/GLOB Ratio 0.6 RATIO (0.9-2.4); AST(SGOT) 20 U/L (15-37); Alanine Aminotransfer ALT/SGPT 19 U/L (16-61); Alkaline Phosphatase 127 U/L (45-117); Anion Gap 6 (5-15); BUN 48 mg/dL (7-18); BUN/Creat Ratio 17.8 RATIO (10-20); Calcium,Total 9.5 mg/dL (8.5-10.1); Chloride 103 mmol/L (98-107); Creatinine, Serum 2.69 mg/dL (0.70-1.30); EST Glomerular Filtration Rate 24 mL/min (>60); Est Glom Filt Rate - Afr Amer 29 mL/min (>60); Glucose 114 mg/dL (74-106); Potassium 4.1 mmol/L (3.5-5.1); Sodium Level 141 mmol/L (136-145)
[2022-08-27 20:00] LABS: Hemoglobin A1c 6.3 % (3.8-5.6)
== END | disposition home or self-care (01) ==
LOC: MTLAB 12:34
PROVIDERS: Referring Provider Internal Medicine; Visit Provider Internal Medicine
DX: E11.9 Type 2 diabetes mellitus without complications (principal)
CPT/HCPCS: 36415; 80053; 83036; 85027

== ENCOUNTER → 2022-09-06 | Outpatient (CLI) | payer MEDICARE, OTHER, SELFPAY ==
[2022-09-06 15:31] LABS: Absolute Lymphocyte Count 1.88 X10^3/uL (0.83-4.51); Basophil# 0.04 X10^3/uL; Basophil% 0.4 % (0-1); Eosinophil# 0.25 X10^3/uL; Eosinophils% 2.5 % (0-5); Hematocrit 33.9 % (40-54); Hemoglobin 10.6 g/dL (13.0-16.5); Lymphocyte # 1.88 X10^3/ul (0.83-4.51); Lymphocyte % 18.9 % (19-41); Mean Corp Hgb Conc 31.3 g/dL (32-36); Mean Corpuscular Hgb 30.8 pg (27.0-32.0); Mean Corpuscular Volume 98.5 fL (80-94); Mean Platelet Vol. 10.5 fl (6.2-12.0); Monocyte# 0.79 X10^3/uL; Monocyte% 7.9 % (0-10); NRBC Flagged by Analyzer 0 % (0-5); Neutrophil # 6.96 X10^3/uL (2.7-7.7); Neutrophil % 69.8 % (47-70); Platelet Count 155 K/mm3 (150-450); RBC Distribution Width CV 14.4 % (11.6-14.6); RBC Distribution Width SD 51.6 fl (35.1-43.9); Red Blood Count 3.44 M/mm3 (4.6-6.2)
[2022-09-06 15:46] LABS: PTHIN 33.7 pg/mL (18.4-80.1)
[2022-09-06 15:51] LABS: Albumin, Serum 2.9 g/dL (3.2-5.0); BUN 54 mg/dL (7-18); BUN/Creat Ratio 21.3 RATIO (10-20); Calcium,Total 9.2 mg/dL (8.5-10.1); Chloride 106 mmol/L (98-107); Creatinine, Serum 2.53 mg/dL (0.70-1.30); EST Glomerular Filtration Rate 26 mL/min (>60); Est Glom Filt Rate - Afr Amer 32 mL/min (>60); Ferritin 172 ng/mL (26-388); Glucose 104 mg/dL (74-106); Iron 52 ug/dL (65-175); Iron Binding Capacity,Total 215 ug/dL (250-450); PERCENT IRON SATURATION 24.2 % (15.0-55.0); Potassium 3.9 mmol/L (3.5-5.1); Sodium Level 141 mmol/L (136-145)
== END | disposition home or self-care (01) ==
LOC: MEDOUTP 14:43
PROVIDERS: Referring Provider Internal Medicine Nephrology; Visit Provider Internal Medicine Nephrology
DX: N18.5 Chronic kidney disease, stage 5 (principal); D63.1 Anemia in chronic kidney disease
CPT/HCPCS: 80069; 82728; 83540; 83550; 83970; 85025

== ENCOUNTER → 2022-09-29 | Outpatient (CLI) | payer MEDICARE, OTHER, SELFPAY ==
[2022-09-29 17:58] LABS: Absolute Lymphocyte Count 1.94 X10^3/uL (0.83-4.51); Absolute Neutrophil Count 6.8 X10^3/uL (2.0-7.7); Basophil# 0.04 X10^3/uL; Basophil% 0.4 % (0-1); Eosinophil# 0.22 X10^3/uL; Eosinophils% 2.3 % (0-5); Hematocrit 34.3 % (40-54); Hemoglobin 10.9 g/dL (13.0-16.5); Lymphocyte # 1.94 X10^3/ul (0.83-4.51); Lymphocyte % 20.2 % (19-41); Mean Corp Hgb Conc 31.8 g/dL (32-36); Mean Corpuscular Hgb 31.9 pg (27.0-32.0); Mean Corpuscular Volume 100.3 fL (80-94); Mean Platelet Vol. 10.8 fl (6.2-12.0); Monocyte# 0.57 X10^3/uL; Monocyte% 5.9 % (0-10); NRBC Flagged by Analyzer 0 % (0-5); Neutrophil % 70.7 % (47-70); Platelet Count 163 K/mm3 (150-450); RBC Distribution Width CV 14.7 % (11.6-14.6); RBC Distribution Width SD 53.1 fl (35.1-43.9); Red Blood Count 3.42 M/mm3 (4.6-6.2); White Blood Count 9.6 K/mm3 (4.4-11.0)
[2022-09-29 18:14] LABS: Protein, Urine (Random) 55.8 mg/dL (<11.9); Protein:Creat Ratio 1028 mg/g CRE (0-200)
[2022-09-29 18:15] LABS: BUN 53 mg/dL (7-18); BUN/Creat Ratio 23.3 RATIO (10-20); Calcium,Total 8.8 mg/dL (8.5-10.1); Chloride 105 mmol/L (98-107); Creatinine, Serum 2.27 mg/dL (0.70-1.30); EST Glomerular Filtration Rate 30 mL/min (>60); Est Glom Filt Rate - Afr Amer 36 mL/min (>60); Ferritin 185 ng/mL (26-388); Glucose 121 mg/dL (74-106); Iron 58 ug/dL (65-175); Iron Binding Capacity,Total 220 ug/dL (250-450); PERCENT IRON SATURATION 26.4 % (15.0-55.0); Sodium Level 139 mmol/L (136-145); Uric Acid 6.3 mg/dL (3.5-7.2)
[2022-09-30 08:55] LABS: PTHIN 113.6 pg/mL (18.4-80.1)
== END | disposition home or self-care (01) ==
LOC: MTLAB 16:31
PROVIDERS: Referring Provider Internal Medicine Nephrology; Visit Provider Internal Medicine Nephrology
DX: I12.9 Hypertensive chronic kidney disease with stage 1 through stage 4 chronic kidney disease, or unspecified chronic kidney disease (principal); N18.32 Chronic kidney disease, stage 3b; D63.1 Anemia in chronic kidney disease
CPT/HCPCS: 36415; 80069; 82570; 82728; 83540; 83550; 83970; 84156; 84550; 85025

== ENCOUNTER → 2022-10-04 | Outpatient (CLI) | payer MEDICARE, OTHER, SELFPAY ==
[2022-10-04 15:03] LABS: Absolute Lymphocyte Count 1.62 X10^3/uL (0.83-4.51); Absolute Neutrophil Count 6.5 X10^3/uL (2.0-7.7); Basophil# 0.03 X10^3/uL; Basophil% 0.3 % (0-1); Eosinophil# 0.21 X10^3/uL; Eosinophils% 2.3 % (0-5); Hematocrit 33.8 % (40-54); Hemoglobin 10.7 g/dL (13.0-16.5); Lymphocyte # 1.62 X10^3/ul (0.83-4.51); Lymphocyte % 18.1 % (19-41); Mean Corp Hgb Conc 31.7 g/dL (32-36); Mean Corpuscular Hgb 31.3 pg (27.0-32.0); Mean Corpuscular Volume 98.8 fL (80-94); Mean Platelet Vol. 10.7 fl (6.2-12.0); Monocyte# 0.54 X10^3/uL; NRBC Flagged by Analyzer 0 % (0-5); Neutrophil # 6.54 X10^3/uL (2.7-7.7); Platelet Count 145 K/mm3 (150-450); RBC Distribution Width CV 14.6 % (11.6-14.6); RBC Distribution Width SD 52.6 fl (35.1-43.9); Red Blood Count 3.42 M/mm3 (4.6-6.2)
[2022-10-04 15:22] LABS: BUN 46 mg/dL (7-18); BUN/Creat Ratio 19.6 RATIO (10-20); Calcium,Total 9.1 mg/dL (8.5-10.1); Chloride 107 mmol/L (98-107); Creatinine, Serum 2.35 mg/dL (0.70-1.30); EST Glomerular Filtration Rate 28 mL/min (>60); Est Glom Filt Rate - Afr Amer 34 mL/min (>60); Ferritin 205 ng/mL (26-388); Glucose 180 mg/dL (74-106); Iron 56 ug/dL (65-175); Iron Binding Capacity,Total 276 ug/dL (250-450); PERCENT IRON SATURATION 20.3 % (15.0-55.0); Phosphorus 2.5 mg/dL (2.5-4.9); Potassium 4.3 mmol/L (3.5-5.1); Sodium Level 140 mmol/L (136-145)
== END | disposition home or self-care (01) ==
LOC: MEDOUTP 14:45
PROVIDERS: Referring Provider Internal Medicine Nephrology; Visit Provider Internal Medicine Nephrology
DX: N18.5 Chronic kidney disease, stage 5 (principal); D63.1 Anemia in chronic kidney disease
CPT/HCPCS: 36415; 80069; 82728; 83540; 83550; 85025

== ENCOUNTER → 2022-11-01 | Outpatient (CLI) | payer MEDICARE, OTHER, SELFPAY ==
[2022-11-01 15:07] LABS: Absolute Lymphocyte Count 2.34 X10^3/uL (0.83-4.51); Basophil# 0.04 X10^3/uL; Basophil% 0.4 % (0-1); Eosinophil# 0.22 X10^3/uL; Eosinophils% 2.1 % (0-5); Hematocrit 35.5 % (40-54); Hemoglobin 11.2 g/dL (13.0-16.5); Lymphocyte # 2.34 X10^3/ul (0.83-4.51); Lymphocyte % 22.7 % (19-41); Mean Corp Hgb Conc 31.5 g/dL (32-36); Mean Corpuscular Hgb 31.3 pg (27.0-32.0); Mean Corpuscular Volume 99.2 fL (80-94); Monocyte# 0.67 X10^3/uL; Monocyte% 6.5 % (0-10); NRBC Flagged by Analyzer 0 % (0-5); Neutrophil # 7.02 X10^3/uL (2.7-7.7); Neutrophil % 67.9 % (47-70); Platelet Count 155 K/mm3 (150-450); RBC Distribution Width CV 14.4 % (11.6-14.6); RBC Distribution Width SD 51.2 fl (35.1-43.9); Red Blood Count 3.58 M/mm3 (4.6-6.2); White Blood Count 10.3 K/mm3 (4.4-11.0)
[2022-11-01 15:21] LABS: Albumin, Serum 3.3 g/dL (3.2-5.0); BUN 56 mg/dL (7-18); BUN/Creat Ratio 21.5 RATIO (10-20); Calcium,Total 9.6 mg/dL (8.5-10.1); Chloride 105 mmol/L (98-107); Creatinine, Serum 2.61 mg/dL (0.70-1.30); EST Glomerular Filtration Rate 25 mL/min (>60); Est Glom Filt Rate - Afr Amer 30 mL/min (>60); Glucose 168 mg/dL (74-106); Iron 69 ug/dL (65-175); Iron Binding Capacity,Total 228 ug/dL (250-450); PERCENT IRON SATURATION 30.3 % (15.0-55.0); Phosphorus 3.7 mg/dL (2.5-4.9); Sodium Level 140 mmol/L (136-145)
[2022-11-01 15:27] LABS: Ferritin 166 ng/mL (26-388)
== END | disposition home or self-care (01) ==
LOC: MEDOUTP 14:50
PROVIDERS: Referring Provider Internal Medicine Nephrology; Visit Provider Internal Medicine Nephrology
DX: N18.5 Chronic kidney disease, stage 5 (principal); N25.81 Secondary hyperparathyroidism of renal origin; D63.1 Anemia in chronic kidney disease
CPT/HCPCS: 36415; 80069; 82728; 83540; 83550; 85025; Q5106

== ENCOUNTER → 2022-11-24 | Outpatient (CLI) | payer MEDICARE, OTHER, SELFPAY ==
[2022-11-24 17:57] LABS: Hemoglobin 11.3 g/dL (13.0-16.5); Mean Corp Hgb Conc 32.3 g/dL (32-36); Mean Corpuscular Hgb 32.2 pg (27.0-32.0); Mean Corpuscular Volume 99.7 fL (80-94); Mean Platelet Vol. 11.1 fl (6.2-12.0); Platelet Count 148 K/mm3 (150-450); RBC Distribution Width CV 14.4 % (11.6-14.6); Red Blood Count 3.51 M/mm3 (4.6-6.2); White Blood Count 9.1 K/mm3 (4.4-11.0)
[2022-11-24 18:29] LABS: ALB/GLOB Ratio 0.8 RATIO (0.9-2.4); AST(SGOT) 19 U/L (15-37); Alanine Aminotransfer ALT/SGPT 17 U/L (16-61); Albumin, Serum 3.3 g/dL (3.2-5.0); Alkaline Phosphatase 135 U/L (45-117); Anion Gap 5 (5-15); BUN 56 mg/dL (7-18); Chloride 107 mmol/L (98-107); Cholesterol 103 mg/dL (200); Creatinine, Serum 2.44 mg/dL (0.70-1.30); EST Glomerular Filtration Rate 27 mL/min (>60); Est Glom Filt Rate - Afr Amer 33 mL/min (>60); Globulin 4.3 g/dL (2.2-4.2); Glucose 142 mg/dL (74-106); High Density Lipoprotein 29 mg/dL; Potassium 4.6 mmol/L (3.5-5.1); Protein, Total 7.6 g/dL (6.4-8.2); Sodium Level 142 mmol/L (136-145); Triglycerides 141 mg/dL; Very Low Density Lipoprotein 28 mg/dL (5-40)
[2022-11-24 18:30] LABS: Hemoglobin A1c 5.8 % (3.8-5.6)
== END | disposition home or self-care (01) ==
LOC: MTLAB 15:58
PROVIDERS: Referring Provider Internal Medicine; Visit Provider Internal Medicine
DX: E11.9 Type 2 diabetes mellitus without complications (principal)
CPT/HCPCS: 36415; 80053; 80061; 83036; 84443; 85027

== ENCOUNTER → 2022-12-02 | Outpatient (CLI) | payer MEDICARE, OTHER, SELFPAY ==
[2022-12-02 15:21] LABS: Absolute Lymphocyte Count 1.85 X10^3/uL (0.83-4.51); Absolute Neutrophil Count 5.7 X10^3/uL (2.0-7.7); Basophil# 0.03 X10^3/uL; Basophil% 0.4 % (0-1); Eosinophil# 0.24 X10^3/uL; Eosinophils% 2.8 % (0-5); Hematocrit 33.8 % (40-54); Lymphocyte # 1.85 X10^3/ul (0.83-4.51); Lymphocyte % 21.8 % (19-41); Mean Corp Hgb Conc 32.5 g/dL (32-36); Mean Corpuscular Volume 98.3 fL (80-94); Mean Platelet Vol. 10.4 fl (6.2-12.0); Monocyte# 0.63 X10^3/uL; Monocyte% 7.4 % (0-10); NRBC Flagged by Analyzer 0 % (0-5); Neutrophil # 5.72 X10^3/uL (2.7-7.7); Neutrophil % 67.2 % (47-70); Platelet Count 158 K/mm3 (150-450); RBC Distribution Width CV 14.4 % (11.6-14.6); RBC Distribution Width SD 51.8 fl (35.1-43.9); Red Blood Count 3.44 M/mm3 (4.6-6.2); White Blood Count 8.5 K/mm3 (4.4-11.0)
[2022-12-02 16:34] LABS: Albumin, Serum 3.4 g/dL (3.2-5.0); BUN 63 mg/dL (7-18); Chloride 108 mmol/L (98-107); Creatinine, Serum 2.74 mg/dL (0.70-1.30); EST Glomerular Filtration Rate 24 mL/min (>60); Est Glom Filt Rate - Afr Amer 29 mL/min (>60); Ferritin 185 ng/mL (26-388); Glucose 180 mg/dL (74-106); Iron 64 ug/dL (65-175); Iron Binding Capacity,Total 230 ug/dL (250-450); PERCENT IRON SATURATION 27.8 % (15.0-55.0); Phosphorus 3.8 mg/dL (2.5-4.9); Potassium 4.3 mmol/L (3.5-5.1); Sodium Level 142 mmol/L (136-145)
[2022-12-03 09:10] LABS: PTHIN 16.7 pg/mL (18.4-80.1)
== END | disposition home or self-care (01) ==
PROVIDERS: Referring Provider Internal Medicine Nephrology; Visit Provider Internal Medicine Nephrology
DX: N18.5 Chronic kidney disease, stage 5 (principal); N25.81 Secondary hyperparathyroidism of renal origin; D63.1 Anemia in chronic kidney disease
CPT/HCPCS: 36415; 80069; 82728; 83540; 83550; 83970; 85025

== ENCOUNTER → 2022-12-28 | Outpatient (CLI) | payer MEDICARE, OTHER, SELFPAY ==
[2022-12-28 15:07] LABS: Absolute Lymphocyte Count 1.99 X10^3/uL (0.83-4.51); Absolute Neutrophil Count 6.4 X10^3/uL (2.0-7.7); Basophil# 0.02 X10^3/uL; Basophil% 0.2 % (0-1); Eosinophil# 0.28 X10^3/uL; Hematocrit 35.5 % (40-54); Hemoglobin 11.5 g/dL (13.0-16.5); Lymphocyte # 1.99 X10^3/ul (0.83-4.51); Lymphocyte % 21.3 % (19-41); Mean Corp Hgb Conc 32.4 g/dL (32-36); Mean Corpuscular Hgb 31.4 pg (27.0-32.0); Mean Platelet Vol. 10.4 fl (6.2-12.0); Monocyte# 0.66 X10^3/uL; Monocyte% 7.1 % (0-10); NRBC Flagged by Analyzer 0 % (0-5); Neutrophil # 6.37 X10^3/uL (2.7-7.7); Neutrophil % 68.1 % (47-70); Platelet Count 148 K/mm3 (150-450); RBC Distribution Width CV 14.3 % (11.6-14.6); RBC Distribution Width SD 50.2 fl (35.1-43.9); Red Blood Count 3.66 M/mm3 (4.6-6.2); White Blood Count 9.4 K/mm3 (4.4-11.0)
[2022-12-28 15:20] LABS: Albumin, Serum 3.1 g/dL (3.2-5.0); BUN 62 mg/dL (7-18); BUN/Creat Ratio 23.6 RATIO (10-20); Calcium,Total 9.7 mg/dL (8.5-10.1); Chloride 107 mmol/L (98-107); Creatinine, Serum 2.63 mg/dL (0.70-1.30); EST Glomerular Filtration Rate 25 mL/min (>60); Est Glom Filt Rate - Afr Amer 30 mL/min (>60); Glucose 214 mg/dL (74-106); Iron 54 ug/dL (65-175); Iron Binding Capacity,Total 244 ug/dL (250-450); PERCENT IRON SATURATION 22.1 % (15.0-55.0); Phosphorus 3.9 mg/dL (2.5-4.9); Potassium 4.3 mmol/L (3.5-5.1); Sodium Level 141 mmol/L (136-145)
[2022-12-28 15:25] LABS: Ferritin 193 ng/mL (26-388)
== END | disposition home or self-care (01) ==
LOC: MEDOUTP 14:46
PROVIDERS: Referring Provider Internal Medicine Nephrology; Visit Provider Internal Medicine Nephrology
DX: N18.5 Chronic kidney disease, stage 5 (principal); N25.81 Secondary hyperparathyroidism of renal origin; D63.1 Anemia in chronic kidney disease
CPT/HCPCS: 36415; 80069; 82728; 83540; 83550; 85025

== ENCOUNTER → 2023-01-24 | Outpatient (CLI) | payer MEDICARE, OTHER, SELFPAY ==
[2023-01-24 15:10] LABS: Absolute Lymphocyte Count 1.96 X10^3/uL (0.83-4.51); Absolute Neutrophil Count 6.3 X10^3/uL (2.0-7.7); Basophil# 0.04 X10^3/uL; Basophil% 0.4 % (0-1); Eosinophil# 0.24 X10^3/uL; Eosinophils% 2.6 % (0-5); Hematocrit 34.2 % (40-54); Hemoglobin 10.9 g/dL (13.0-16.5); Lymphocyte # 1.96 X10^3/ul (0.83-4.51); Lymphocyte % 21.4 % (19-41); Mean Corp Hgb Conc 31.9 g/dL (32-36); Mean Corpuscular Hgb 31.5 pg (27.0-32.0); Mean Corpuscular Volume 98.8 fL (80-94); Mean Platelet Vol. 10.3 fl (6.2-12.0); Monocyte# 0.53 X10^3/uL; Monocyte% 5.8 % (0-10); NRBC Flagged by Analyzer 0 % (0-5); Neutrophil # 6.33 X10^3/uL (2.7-7.7); Neutrophil % 69.4 % (47-70); Platelet Count 149 K/mm3 (150-450); RBC Distribution Width CV 14.2 % (11.6-14.6); RBC Distribution Width SD 50.6 fl (35.1-43.9); Red Blood Count 3.46 M/mm3 (4.6-6.2); White Blood Count 9.1 K/mm3 (4.4-11.0)
[2023-01-24 15:27] LABS: BUN 60 mg/dL (7-18); BUN/Creat Ratio 22.6 RATIO (10-20); Calcium,Total 9.5 mg/dL (8.5-10.1); Chloride 105 mmol/L (98-107); Creatinine, Serum 2.65 mg/dL (0.70-1.30); EST Glomerular Filtration Rate 25 mL/min (>60); Est Glom Filt Rate - Afr Amer 30 mL/min (>60); Ferritin 191 ng/mL (26-388); Glucose 182 mg/dL (74-106); Iron 68 ug/dL (65-175); Iron Binding Capacity,Total 202 ug/dL (250-450); PERCENT IRON SATURATION 33.7 % (15.0-55.0); Phosphorus 3.7 mg/dL (2.5-4.9); Potassium 4.7 mmol/L (3.5-5.1); Sodium Level 141 mmol/L (136-145)
== END | disposition home or self-care (01) ==
LOC: MEDOUTP 14:47
PROVIDERS: Referring Provider Internal Medicine Nephrology; Visit Provider Internal Medicine Nephrology
DX: N18.5 Chronic kidney disease, stage 5 (principal); D63.1 Anemia in chronic kidney disease
CPT/HCPCS: 36415; 80069; 82728; 83540; 83550; 85025

== ENCOUNTER → 2023-01-31 | Outpatient (CLI) | payer MEDICARE, OTHER, SELFPAY ==
[2023-01-31 17:35] LABS: Absolute Lymphocyte Count 1.94 X10^3/uL (0.83-4.51); Absolute Neutrophil Count 6.1 X10^3/uL (2.0-7.7); Basophil# 0.05 X10^3/uL; Basophil% 0.5 % (0-1); Eosinophils% 3.3 % (0-5); Hematocrit 37.4 % (40-54); Hemoglobin 11.7 g/dL (13.0-16.5); Lymphocyte # 1.94 X10^3/ul (0.83-4.51); Lymphocyte % 21.3 % (19-41); Mean Corp Hgb Conc 31.3 g/dL (32-36); Mean Corpuscular Hgb 31.3 pg (27.0-32.0); Mean Platelet Vol. 10.4 fl (6.2-12.0); Monocyte# 0.63 X10^3/uL; Monocyte% 6.9 % (0-10); NRBC Flagged by Analyzer 0 % (0-5); Neutrophil # 6.13 X10^3/uL (2.7-7.7); Neutrophil % 67.5 % (47-70); Platelet Count 167 K/mm3 (150-450); RBC Distribution Width CV 14.3 % (11.6-14.6); Red Blood Count 3.74 M/mm3 (4.6-6.2); White Blood Count 9.1 K/mm3 (4.4-11.0)
[2023-01-31 17:57] LABS: Albumin, Serum 3.1 g/dL (3.2-5.0); BUN 61 mg/dL (7-18); BUN/Creat Ratio 22.1 RATIO (10-20); Calcium,Total 9.6 mg/dL (8.5-10.1); Chloride 103 mmol/L (98-107); Creatinine, Serum 2.76 mg/dL (0.70-1.30); EST Glomerular Filtration Rate 24 mL/min (>60); Est Glom Filt Rate - Afr Amer 29 mL/min (>60); Ferritin 191 ng/mL (26-388); Glucose 145 mg/dL (74-106); Iron 65 ug/dL (65-175); Iron Binding Capacity,Total 265 ug/dL (250-450); PERCENT IRON SATURATION 24.5 % (15.0-55.0); Phosphorus 4.1 mg/dL (2.5-4.9); Potassium 4.6 mmol/L (3.5-5.1); Sodium Level 139 mmol/L (136-145); Uric Acid 6.2 mg/dL (3.5-7.2)
[2023-01-31 18:04] LABS: Protein, Urine (Random) 64.8 mg/dL (<11.9); Protein:Creat Ratio 545 mg/g CRE (0-200)
[2023-02-01 08:44] LABS: PTHIN 32.8 pg/mL (18.4-80.1)
== END | disposition home or self-care (01) ==
LOC: MTLAB 16:25
PROVIDERS: Referring Provider Internal Medicine Nephrology; Visit Provider Internal Medicine Nephrology
DX: I12.9 Hypertensive chronic kidney disease with stage 1 through stage 4 chronic kidney disease, or unspecified chronic kidney disease (principal); N18.32 Chronic kidney disease, stage 3b; D63.1 Anemia in chronic kidney disease; R80.9 Proteinuria, unspecified
CPT/HCPCS: 36415; 80069; 82570; 82728; 83540; 83550; 83970; 84156; 84550; 85025

== ENCOUNTER → 2023-02-21 | Outpatient (CLI) | payer MEDICARE, OTHER, SELFPAY ==
[2023-02-21 15:47] LABS: Hematocrit 33.2 % (40-54); Hemoglobin 10.7 g/dL (13.0-16.5); Mean Corp Hgb Conc 32.2 g/dL (32-36); Mean Corpuscular Hgb 31.7 pg (27.0-32.0); Mean Corpuscular Volume 98.2 fL (80-94); Mean Platelet Vol. 10.6 fl (6.2-12.0); Platelet Count 147 K/mm3 (150-450); RBC Distribution Width CV 14.5 % (11.6-14.6); RBC Distribution Width SD 52.2 fl (35.1-43.9); Red Blood Count 3.38 M/mm3 (4.6-6.2); White Blood Count 8.7 K/mm3 (4.4-11.0)
[2023-02-21 15:59] LABS: Hemoglobin A1c 5.6 % (3.8-5.6)
[2023-02-21 16:09] LABS: ALB/GLOB Ratio 0.7 RATIO (0.9-2.4); AST(SGOT) 14 U/L (15-37); Alanine Aminotransfer ALT/SGPT 14 U/L (16-61); Albumin, Serum 3.1 g/dL (3.2-5.0); Alkaline Phosphatase 137 U/L (45-117); Anion Gap 6 (5-15); BUN 58 mg/dL (7-18); BUN/Creat Ratio 17.2 RATIO (10-20); Calcium,Total 8.5 mg/dL (8.5-10.1); Chloride 107 mmol/L (98-107); Cholesterol 88 mg/dL (200); Creatinine, Serum 3.37 mg/dL (0.70-1.30); EST Glomerular Filtration Rate 19 mL/min (>60); Est Glom Filt Rate - Afr Amer 23 mL/min (>60); Ferritin 167 ng/mL (26-388); Globulin 4.5 g/dL (2.2-4.2); Glucose 167 mg/dL (74-106); High Density Lipoprotein 30 mg/dL; Iron 49 ug/dL (65-175); Iron Binding Capacity,Total 201 ug/dL (250-450); PERCENT IRON SATURATION 24.4 % (15.0-55.0); Phosphorus 2.8 mg/dL (2.5-4.9); Potassium 4.3 mmol/L (3.5-5.1); Protein, Total 7.6 g/dL (6.4-8.2); Sodium Level 137 mmol/L (136-145); Thyroid Stim Hormone (TSH) 4.77 uIU/mL (0.358-3.74); Triglycerides 93 mg/dL; Very Low Density Lipoprotein 19 mg/dL (5-40)
== END | disposition home or self-care (01) ==
LOC: MEDOUTP 14:49
PROVIDERS: Referring Provider Internal Medicine Nephrology; Visit Provider Internal Medicine Nephrology
DX: N25.81 Secondary hyperparathyroidism of renal origin (principal); E11.65 Type 2 diabetes mellitus with hyperglycemia; N18.5 Chronic kidney disease, stage 5; D63.1 Anemia in chronic kidney disease
CPT/HCPCS: 36415; 80053; 80061; 82728; 83036; 83540; 83550; 84100; 84443; 85027

== ENCOUNTER 2023-03-21 14:54 | Outpatient (CLI) | payer MEDICARE, OTHER, SELFPAY ==
[2023-03-21 15:17] LABS: Absolute Lymphocyte Count 2.09 X10^3/uL (0.83-4.51); Basophil# 0.05 X10^3/uL; Basophil% 0.6 % (0-1); Eosinophil# 0.28 X10^3/uL; Eosinophils% 3.1 % (0-5); Hematocrit 35.7 % (40-54); Hemoglobin 11.3 g/dL (13.0-16.5); Lymphocyte # 2.09 X10^3/ul (0.83-4.51); Mean Corp Hgb Conc 31.7 g/dL (32-36); Mean Corpuscular Hgb 31.7 pg (27.0-32.0); Mean Platelet Vol. 10.1 fl (6.2-12.0); Monocyte# 0.61 X10^3/uL; Monocyte% 6.7 % (0-10); NRBC Flagged by Analyzer 0 % (0-5); Neutrophil # 6.02 X10^3/uL (2.7-7.7); Neutrophil % 66.3 % (47-70); Platelet Count 130 K/mm3 (150-450); RBC Distribution Width CV 14.2 % (11.6-14.6); Red Blood Count 3.57 M/mm3 (4.6-6.2); White Blood Count 9.1 K/mm3 (4.4-11.0)
[2023-03-21 15:30] LABS: PTHIN 35.6 pg/mL (18.4-80.1)
[2023-03-21 15:38] LABS: Albumin, Serum 3.3 g/dL (3.2-5.0); BUN 65 mg/dL (7-18); BUN/Creat Ratio 23.1 RATIO (10-20); Calcium,Total 9.6 mg/dL (8.5-10.1); Chloride 107 mmol/L (98-107); Creatinine, Serum 2.81 mg/dL (0.70-1.30); EST Glomerular Filtration Rate 23 mL/min (>60); Est Glom Filt Rate - Afr Amer 28 mL/min (>60); Ferritin 178 ng/mL (26-388); Glucose 151 mg/dL (74-106); Iron 88 ug/dL (65-175); Iron Binding Capacity,Total 224 ug/dL (250-450); PERCENT IRON SATURATION 39.3 % (15.0-55.0); Phosphorus 3.2 mg/dL (2.5-4.9); Potassium 4.4 mmol/L (3.5-5.1); Sodium Level 137 mmol/L (136-145)
== END 2023-03-21 14:55 | disposition home or self-care (01) ==
LOC: MEDOUTP 14:54
PROVIDERS: Referring Provider Internal Medicine Nephrology; Visit Provider Internal Medicine Nephrology
DX: N18.5 Chronic kidney disease, stage 5 (principal); D63.1 Anemia in chronic kidney disease
CPT/HCPCS: 36415; 80069; 82728; 83540; 83550; 83970; 85025

== ENCOUNTER 2023-04-18 14:53 | Outpatient (CLI) | payer MEDICARE, OTHER, SELFPAY ==
[2023-04-18 15:27] LABS: Absolute Lymphocyte Count 1.93 X10^3/uL (0.83-4.51); Absolute Neutrophil Count 5.7 X10^3/uL (2.0-7.7); Basophil# 0.02 X10^3/uL; Basophil% 0.2 % (0-1); Eosinophil# 0.16 X10^3/uL; Eosinophils% 1.9 % (0-5); Hematocrit 35.8 % (40-54); Hemoglobin 11.3 g/dL (13.0-16.5); Lymphocyte # 1.93 X10^3/ul (0.83-4.51); Mean Corp Hgb Conc 31.6 g/dL (32-36); Mean Corpuscular Hgb 31.3 pg (27.0-32.0); Mean Corpuscular Volume 99.2 fL (80-94); Mean Platelet Vol. 10.9 fl (6.2-12.0); Monocyte# 0.51 X10^3/uL; Monocyte% 6.1 % (0-10); NRBC Flagged by Analyzer 0 % (0-5); Neutrophil # 5.73 X10^3/uL (2.7-7.7); Neutrophil % 68.4 % (47-70); Platelet Count 136 K/mm3 (150-450); RBC Distribution Width SD 50.5 fl (35.1-43.9); Red Blood Count 3.61 M/mm3 (4.6-6.2); White Blood Count 8.4 K/mm3 (4.4-11.0)
[2023-04-18 15:50] LABS: Albumin, Serum 3.2 g/dL (3.2-5.0); BUN 73 mg/dL (7-18); BUN/Creat Ratio 23.6 RATIO (10-20); Calcium,Total 8.9 mg/dL (8.5-10.1); Chloride 107 mmol/L (98-107); Creatinine, Serum 3.09 mg/dL (0.70-1.30); EST Glomerular Filtration Rate 21 mL/min (>60); Est Glom Filt Rate - Afr Amer 25 mL/min (>60); Ferritin 184 ng/mL (26-388); Glucose 144 mg/dL (74-106); Iron 59 ug/dL (65-175); Iron Binding Capacity,Total 244 ug/dL (250-450); PERCENT IRON SATURATION 24.2 % (15.0-55.0); Potassium 4.3 mmol/L (3.5-5.1); Sodium Level 141 mmol/L (136-145)
== END 2023-04-18 14:54 | disposition home or self-care (01) ==
LOC: MEDOUTP 14:53
PROVIDERS: Referring Provider Internal Medicine Nephrology; Visit Provider Internal Medicine Nephrology
DX: N18.5 Chronic kidney disease, stage 5 (principal); N25.81 Secondary hyperparathyroidism of renal origin; D63.1 Anemia in chronic kidney disease
CPT/HCPCS: 36415; 80069; 82728; 83540; 83550; 85025

== ENCOUNTER 2023-05-16 14:51 | Outpatient (CLI) | payer MEDICARE, OTHER, SELFPAY ==
[2023-05-16 15:11] LABS: Absolute Lymphocyte Count 2.23 X10^3/uL (0.83-4.51); Basophil# 0.05 X10^3/uL; Basophil% 0.5 % (0-1); Eosinophil# 0.22 X10^3/uL; Eosinophils% 2.4 % (0-5); Hematocrit 35.7 % (40-54); Hemoglobin 11.2 g/dL (13.0-16.5); Lymphocyte # 2.23 X10^3/ul (0.83-4.51); Lymphocyte % 24.5 % (19-41); Mean Corp Hgb Conc 31.4 g/dL (32-36); Mean Corpuscular Hgb 31.4 pg (27.0-32.0); Mean Platelet Vol. 10.3 fl (6.2-12.0); Monocyte# 0.56 X10^3/uL; Monocyte% 6.1 % (0-10); NRBC Flagged by Analyzer 0 % (0-5); Neutrophil # 6.01 X10^3/uL (2.7-7.7); Neutrophil % 66.1 % (47-70); Platelet Count 132 K/mm3 (150-450); RBC Distribution Width CV 14.5 % (11.6-14.6); RBC Distribution Width SD 52.7 fl (35.1-43.9); Red Blood Count 3.57 M/mm3 (4.6-6.2); White Blood Count 9.1 K/mm3 (4.4-11.0)
[2023-05-16 15:47] LABS: Albumin, Serum 3.2 g/dL (3.2-5.0); BUN 64 mg/dL (7-18); BUN/Creat Ratio 21.5 RATIO (10-20); Calcium,Total 9.1 mg/dL (8.5-10.1); Chloride 110 mmol/L (98-107); Creatinine, Serum 2.97 mg/dL (0.70-1.30); EST Glomerular Filtration Rate 22 mL/min (>60); Est Glom Filt Rate - Afr Amer 26 mL/min (>60); Ferritin 154 ng/mL (26-388); Glucose 163 mg/dL (74-106); Iron 70 ug/dL (65-175); Iron Binding Capacity,Total 231 ug/dL (250-450); PERCENT IRON SATURATION 30.3 % (15.0-55.0); Phosphorus 3.8 mg/dL (2.5-4.9); Potassium 4.6 mmol/L (3.5-5.1); Sodium Level 141 mmol/L (136-145)
== END 2023-05-16 14:52 | disposition home or self-care (01) ==
LOC: MEDOUTP 14:51
PROVIDERS: Referring Provider Internal Medicine Nephrology; Visit Provider Internal Medicine Nephrology
DX: N18.5 Chronic kidney disease, stage 5 (principal); D63.1 Anemia in chronic kidney disease
CPT/HCPCS: 36415; 80069; 82728; 83540; 83550; 83970; 85025

== ENCOUNTER → 2023-05-26 | Outpatient (CLI) | payer MEDICARE, OTHER, SELFPAY ==
[2023-05-26 15:46] LABS: Absolute Lymphocyte Count 1.58 X10^3/uL (0.83-4.51); Absolute Neutrophil Count 6.5 X10^3/uL (2.0-7.7); Basophil# 0.04 X10^3/uL; Basophil% 0.5 % (0-1); Eosinophil# 0.11 X10^3/uL; Eosinophils% 1.3 % (0-5); Hematocrit 35.6 % (40-54); Hemoglobin 11.1 g/dL (13.0-16.5); Lymphocyte # 1.58 X10^3/ul (0.83-4.51); Lymphocyte % 18.1 % (19-41); Mean Corp Hgb Conc 31.2 g/dL (32-36); Mean Corpuscular Hgb 31.5 pg (27.0-32.0); Mean Corpuscular Volume 101.1 fL (80-94); Mean Platelet Vol. 11.6 fl (6.2-12.0); Monocyte# 0.46 X10^3/uL; Monocyte% 5.3 % (0-10); NRBC Flagged by Analyzer 0 % (0-5); Neutrophil # 6.49 X10^3/uL (2.7-7.7); Neutrophil % 74.3 % (47-70); Platelet Count 130 K/mm3 (150-450); RBC Distribution Width CV 14.2 % (11.6-14.6); RBC Distribution Width SD 51.8 fl (35.1-43.9); Red Blood Count 3.52 M/mm3 (4.6-6.2); White Blood Count 8.7 K/mm3 (4.4-11.0)
[2023-05-26 16:02] LABS: Protein, Urine (Random) 58.6 mg/dL (<11.9); Protein:Creat Ratio 693 mg/g CRE (0-200)
[2023-05-26 16:14] LABS: Hemoglobin A1c 5.5 % (3.8-5.6)
[2023-05-26 16:21] LABS: ALB/GLOB Ratio 0.7 RATIO (0.9-2.4); AST(SGOT) 15 U/L (15-37); Alanine Aminotransfer ALT/SGPT 14 U/L (16-61); Albumin, Serum 3.2 g/dL (3.2-5.0); Alkaline Phosphatase 134 U/L (45-117); Anion Gap 6 (5-15); BUN 60 mg/dL (7-18); BUN/Creat Ratio 19.9 RATIO (10-20); Calcium,Total 9.3 mg/dL (8.5-10.1); Chloride 107 mmol/L (98-107); Creatinine, Serum 3.02 mg/dL (0.70-1.30); EST Glomerular Filtration Rate 21 mL/min (>60); Est Glom Filt Rate - Afr Amer 26 mL/min (>60); Ferritin 151 ng/mL (26-388); Globulin 4.6 g/dL (2.2-4.2); Glucose 196 mg/dL (74-106); Iron 75 ug/dL (65-175); Iron Binding Capacity,Total 278 ug/dL (250-450); Phosphorus 3.7 mg/dL (2.5-4.9); Potassium 4.7 mmol/L (3.5-5.1); Protein, Total 7.8 g/dL (6.4-8.2); Sodium Level 140 mmol/L (136-145); Thyroid Stim Hormone (TSH) 4.65 uIU/mL (0.358-3.74)
[2023-05-27 07:51] LABS: PTHIN 20.3 pg/mL (18.4-80.1)
== END | disposition home or self-care (01) ==
LOC: MTLAB 11:43
PROVIDERS: Referring Provider Internal Medicine; Visit Provider Internal Medicine
DX: E11.9 Type 2 diabetes mellitus without complications (principal)
CPT/HCPCS: 36415; 80053; 82570; 82728; 83036; 83540; 83550; 83970; 84100; 84156; 84443; 85025

== ENCOUNTER 2023-06-13 14:54 | Outpatient (CLI) | payer MEDICARE, OTHER, SELFPAY ==
[2023-06-13 15:13] LABS: Absolute Lymphocyte Count 1.92 X10^3/uL (0.83-4.51); Basophil# 0.03 X10^3/uL; Basophil% 0.3 % (0-1); Eosinophil# 0.16 X10^3/uL; Eosinophils% 1.8 % (0-5); Hematocrit 36.5 % (40-54); Hemoglobin 11.4 g/dL (13.0-16.5); Lymphocyte # 1.92 X10^3/ul (0.83-4.51); Mean Corp Hgb Conc 31.2 g/dL (32-36); Mean Corpuscular Hgb 31.7 pg (27.0-32.0); Mean Corpuscular Volume 101.4 fL (80-94); Mean Platelet Vol. 10.8 fl (6.2-12.0); Monocyte# 0.61 X10^3/uL; NRBC Flagged by Analyzer 0 % (0-5); Neutrophil # 5.99 X10^3/uL (2.7-7.7); Neutrophil % 68.6 % (47-70); Platelet Count 120 K/mm3 (150-450); RBC Distribution Width CV 14.1 % (11.6-14.6); RBC Distribution Width SD 52.5 fl (35.1-43.9); White Blood Count 8.7 K/mm3 (4.4-11.0)
[2023-06-13 17:24] LABS: Albumin, Serum 3.3 g/dL (3.2-5.0); BUN 56 mg/dL (7-18); BUN/Creat Ratio 19.7 RATIO (10-20); Calcium,Total 8.5 mg/dL (8.5-10.1); Chloride 110 mmol/L (98-107); Creatinine, Serum 2.84 mg/dL (0.70-1.30); EST Glomerular Filtration Rate 23 mL/min (>60); Est Glom Filt Rate - Afr Amer 28 mL/min (>60); Ferritin 168 ng/mL (26-388); Glucose 172 mg/dL (74-106); Iron 60 ug/dL (65-175); Iron Binding Capacity,Total 258 ug/dL (250-450); PERCENT IRON SATURATION 23.3 % (15.0-55.0); Potassium 4.6 mmol/L (3.5-5.1); Sodium Level 140 mmol/L (136-145)
== END 2023-06-13 14:55 | disposition home or self-care (01) ==
LOC: MEDOUTP 14:54
PROVIDERS: Referring Provider Internal Medicine Nephrology; Visit Provider Internal Medicine Nephrology
DX: N18.5 Chronic kidney disease, stage 5 (principal); D63.1 Anemia in chronic kidney disease
CPT/HCPCS: 36415; 80069; 82728; 83540; 83550; 85025

== ENCOUNTER 2023-06-29 12:35 | Inpatient (IN) | payer MEDICARE, OTHER, SELFPAY ==
[2023-06-29] VITALS (10 sets, daily range): BP systolic 154–174; BP diastolic 60–95; PULSE 41–73; RESP 16–22; TEMP 35.9–36.8; O2SAT 94–100; BMI 44.1; BMI 41.1
--- NOTE | 2023-06-29 12:46 | CT_ITS ---
STUDY: CT HEAD STROKE PROTOCOL W/O CONTRAST INJECTION REASON FOR EXAM: Male, 83 years old. CVA RADIATION DOSAGE (If Supplied By Facility): CTDIvol = ( 44.99 ) mGy, DLP = ( 779.24 ) mGycm TECHNIQUE: Transaxial CT imaging of the brain was performed without administration of intravenous contrast material. Individualized dose optimization techniques were used for this CT. COMPARISON: Comparison is made with prior study dated February 06, 2019. FINDINGS: Normal soft tissue structures. Normal calvarium. There is mild cerebral atrophy with widening of the extra-axial spaces and ventricular dilatation. There are areas of decreased attenuation within the white matter tracts of the supratentorial brain, consistent with microvascular disease changes. There are small punctate calcifications of the basal ganglia which are seen in the aging brain as a normal variant. Normal brainstem. There is mild cerebellar atrophy. There is no intracranial hemorrhage. There are no findings of an acute ischemic infarction. Atherosclerotic calcification of the vertebral arteries and cavernous portions of the internal carotid arteries bilaterally. Normal visualized paranasal sinuses. ASPECT score: 10 CT/STROKE Brain/Head without Cont IMPRESSION: Chronic involutional changes of the brain. N.B. : The above Results were Read Back by Mahendra Canada MD to Angélica Palomo and understanding confirmed on 06/29/2023 13:00:06 (ET). Electronically Signed: Mahendra Canada MD at 13:01 EDT ,
--- NOTE | 2023-06-29 12:48 | EKG12_ITS ---
Test Reason : Blood Pressure : / mmHG Vent. Rate : 043 BPM Atrial Rate : 000 BPM P-R Int : 000 ms QRS Dur : 164 ms QT Int : 546 ms P-R-T Axes : 000 -19 151 degrees QTc Int : 461 ms Atrial fibrillation with slow ventricular response Left bundle branch block Abnormal ECG Confirmed by BHAVNA BAIG, GALE ([id number]), primer expeditor and drier BRENDA CANTRELL ([id number]) on 07/01/2023 1:24:02 PM Referred By: ELVIA Confirmed By:REJI HUGGINS MD
[2023-06-29 13:12] LABS: Absolute Lymphocyte Count 2.01 X10^3/uL (0.83-4.51); Absolute Neutrophil Count 6.7 X10^3/uL (2.0-7.7); Basophil# 0.06 X10^3/uL; Basophil% 0.6 % (0-1); Eosinophil# 0.13 X10^3/uL; Eosinophils% 1.4 % (0-5); Hematocrit 36.7 % (40-54); Hemoglobin 11.6 g/dL (13.0-16.5); Lymphocyte # 2.01 X10^3/ul (0.83-4.51); Lymphocyte % 21.1 % (19-41); Mean Corp Hgb Conc 31.6 g/dL (32-36); Mean Corpuscular Hgb 31.4 pg (27.0-32.0); Mean Corpuscular Volume 99.5 fL (80-94); Mean Platelet Vol. 11.3 fl (6.2-12.0); Monocyte# 0.61 X10^3/uL; Monocyte% 6.4 % (0-10); NRBC Flagged by Analyzer 0 % (0-5); Neutrophil # 6.67 X10^3/uL (2.7-7.7); Platelet Count 143 K/mm3 (150-450); RBC Distribution Width CV 14.2 % (11.6-14.6); RBC Distribution Width SD 51.5 fl (35.1-43.9); Red Blood Count 3.69 M/mm3 (4.6-6.2); White Blood Count 9.5 K/mm3 (4.4-11.0)
[2023-06-29 13:13] LABS: Blood Gas Specimen Type VEN; VBG BASE EXCESS 1 mmol/L (-1.0-3.5); VBG Bicarbonate 25 mmol/L (22-26); VBG PO2 64 mmHg (25-40); VBG SO2 93 % (50-70); VBG TCO2 26 mmol/L (23-33); VBG pCO2 34.8 mmHg (41-51); VBG pH 7.46 (7.32-7.42)
--- NOTE | 2023-06-29 13:14 | RAD_ITS ---
STUDY: X-RAY CHEST REASON FOR EXAM: Male, 83 years old. Neuro deficit, acute, stroke suspected TECHNIQUE: Single AP portable view of the chest. COMPARISON: Comparison is made with prior study dated February 19, 2020. FINDINGS: EKG electrodes are seen. The lungs are clear and expanded. There is no demonstrated pleural abnormality. Sternal cerclage wires and vascular clips are present from a prior sternotomy and coronary artery bypass graft procedure (CABG). Hepatomegaly. Normal mediastinum and baudilio. Normal visualized pulmonary arteries. There is atherosclerotic calcification of the aortic arch with tortuosity. There are diffuse degenerative changes of the visualized thoracic spine. There is degenerative osteoarthritis of the bilateral shoulders. There is no demonstrated abnormality of the visualized soft tissue structures of the upper abdomen. RAD/Chest 1 View IMPRESSION: Cardiomegaly. The lungs are clear. Electronically Signed: Mahendra Canada MD at 13:51 EDT ,
[2023-06-29 13:19] LABS: International Normalized Ratio 1.5
[2023-06-29 13:20] LABS: Partial Thromboplast Time 40.4 Seconds (24.1-36.2)
--- NOTE | 2023-06-29 13:31 | CHAPLAIN ---
Type of Pastoral Visit ___ Initial Visit ___ Follow-up Visit ___ On-call Visit ___ General Patient Visit ___ Spiritual Assessment ___ Family Conference ___ Bereavement _x__ Rapid Response ___ Code Blue ___ Other (describe below) Pastoral Care Referral From ___ Patient ___ Family ___ Nurse ___ Physician ___ Field Crop Harvest Contractor ___ Director Digital Sales _x__ Other (describe below) Sacrament/Intervention ___ Active listening ___ Anointing ___ Rastafarian ___ Bereavement ___ Communion ___ Cora exploration ___ ___ Life review ___ Prayer ___ Reconciliation ___ Sacrament of Sick _x__ Supportive presence ___ Wedding ___ Other (describe below) Pastoral Comments arrived to stroke alert just moments before pt arrived by squad; pt was taken to CT; granddaughter was met in the waiting room and escorted to patient room and introduced to RN and DR that would care of patient; offered support and presence; medical team handling the patient and the granddaughter and no further needs are evident
[2023-06-29 13:32] LABS: Anion Gap 6 (5-15); BUN 47 mg/dL (7-18); Calcium,Total 9.9 mg/dL (8.5-10.1); Chloride 107 mmol/L (98-107); Creatinine, Serum 2.48 mg/dL (0.70-1.30); EST Glomerular Filtration Rate 27 mL/min (>60); Est Glom Filt Rate - Afr Amer 32 mL/min (>60); Estimated Creatinine Clearance 19.98 ml/min; Glucose 102 mg/dL (74-106); Potassium 4.7 mmol/L (3.5-5.1); Sodium Level 141 mmol/L (136-145); Troponin-I HS 66 pg/mL (3.0-78.0)
--- NOTE | 2023-06-29 14:24 | HP.PCM.HOS_ITS ---
HPI - General General Date of Admission: 06/29/23 Date of Service: 06/29/23 HPI Narrative JODIE SILVERIO, is a 83 M who presents [facility] Medical History Acute exacerbation of CHF (congestive heart failure) Acute on chronic diastolic (congestive) heart failure Acute respiratory failure with hypoxia Anemia Atherosclerosis of coronary artery bypass graft without angina pectoris Atherosclerosis of coronary artery of [place] heart without angina pectoris Atrial fibrillation with rapid ventricular response (07/11/16) Cholecystitis Chronic combined systolic and diastolic CHF (congestive heart failure) Chronic renal failure, stage 3 (moderate) Chronic respiratory failure with hypoxia COPD (chronic obstructive pulmonary disease) Essential (primary) hypertension Hyperlipemia Left bundle branch block Localized edema Lymphedema Morbid obesity with BMI of 45.0-49.9, adult Non-rheumatic aortic stenosis Obstructive sleep apnea Ocular migraine Paroxysmal atrial fibrillation Restrictive airway disease Right lower lobe pneumonia Sepsis TIA (transient ischemic attack) Type 2 diabetes mellitus without complications Venous insufficiency of both lower extremities Home Medications aspirin 81 mg tablet,delayed release 81 mg PO DAILY HEART HEALTH 07/11/16 [History Last Taken 01/29/20] atorvastatin 40 mg tablet 40 mg PO QHS CHOLSTEROL 07/11/16 [History Last Taken 01/29/20] multivitamin 1 ea PO DAILY HEALTH MAINTENANCE 07/11/16 [History Last Taken 01/29/20] insulin regular human 100 unit/mL injection solution 25 unit subcut BID DIABETES 07/24/16 [History Last Taken 01/29/20] cholecalciferol (vitamin D3) 25 mcg (1,000 unit) tablet 25 mcg PO DAILY SUPPLEMENT 10/26/16 [History Last Taken 01/29/20] sertraline 25 mg tablet 25 mg PO DAILY DEPRESSION 01/10/18 [History Last Taken 01/29/20] insulin NPH isoph U-100 human 100 unit/mL subcutaneous suspension 25 unit subcut BID DIABETES 03/08/18 [History Last Taken 01/29/20] metoprolol tartrate 25 mg tablet 12.5 mg PO BID BLOOD PRESSURE 09/27/19 [History Last Taken 01/29/20] famotidine 20 mg tablet 20 mg PO DAILY GERD 11/13/19 [History Last Taken 01/29/20] olanzapine 2.5 mg tablet 2.5 mg PO QHS DEPRESSION 11/13/19 [History Last Taken 01/29/20] allopurinol 300 mg tablet 150 mg PO DAILY GOUT 12/07/21 [History Last Taken Unknown] levetiracetam 500 mg tablet 250 mg PO BID SEIZURES 12/07/21 [History Last Taken Unknown] psyllium husk 0.4 gram capsule 0.4 g PO BID CONSTIPATION 12/07/21 [History Last Taken Unknown] furosemide 40 mg tablet 40 - 80 mg (1 - 2 x 40 mg) PO DAILY #180 tabs 09/17/22 [Rx Last Taken Unknown] apixaban 2.5 mg tablet (Eliquis) 2.5 mg PO BID BLOOD THINNER 10/07/22 [History Last Taken Unknown] calcitriol 0.25 mcg capsule 0.5 mcg PO MOWEFR SUPPLEMENT 10/07/22 [History Last Taken Unknown] isosorbide mononitrate 30 mg tablet,extended release 24 hr 30 mg PO DAILY HEART #90 tabs 02/01/23 [Rx Last Taken Unknown] Allergy/AdvReac Type Severity Reaction Status Date / Time Penicillins [PCN] Allergy Swelling Verified 01/31/23 15:29 Family History Father Myocardial infarction Mother CVA (cerebral vascular accident) Brother CAD (coronary artery disease) Diabetes Surgical History H/O aortic valve replacement (02/24/16) H/O coronary artery bypass surgery (02/24/16) Hx of cholecystectomy (01/13/17) Social History Smoking Status: Former smoker how long ago did patient quit smokin + years alcohol intake: never substance use type: does not use caffeine: Yes Type: carbonated beverages and tea Vital Signs Vital Signs Vital Signs: 06/29/23 12:36 06/29/23 12:49 06/29/23 12:49 Temperature 96.6 F L Temperature Source Temporal Pulse Rate 46 L Respiratory Rate 18 Blood Pressure 172/86 H Blood Pressure Mean 114 Pulse Ox 96 Oxygen Delivery Method Nasal Cannula Nasal Cannula Oxygen Flow Rate (L/min) 4 4 06/29/23 12:49 Temperature Temperature Source Pulse Rate 57 L Respiratory Rate 19 H Blood Pressure 172/86 H Blood Pressure Mean 114 Pulse Ox 95 Oxygen Delivery Method Nasal Cannula Oxygen Flow Rate (L/min) 4 Weight Weight: 265 lb 3.457 oz Body Mass Index (BMI) 44.1 Results Lab / Micro Data 06/29/23 12:40 06/29/23 12:40 Labs: Laboratory Results - last 24 hr 06/29/23 12:40: WBC 9.5, RBC 3.69 L, Hgb 11.6 L, Hct 36.7 L, MCV 99.5 H, MCH 31.4, MCHC 31.6 L, RDW Std Deviation 51.5 H, RDW Coeff of Yeny 14.2, Plt Count 143 L, MPV 11.3, Immature Gran % (Auto) 0.500, Neut % (Auto) 70.0, Lymph % (Auto) 21.1, [place] % (Auto) 6.4, Eos % (Auto) 1.4, Baso % (Auto) 0.6, Absolute Neuts (auto) 6.7, Absolute Lymphs (auto) 2.01, Nucleated RBC % 0, PT 18.0 H, INR 1.5, APTT 40.4 H, Sodium 141, Potassium 4.7, Chloride 107, Carbon Dioxide 28.0, Anion Gap 6, BUN 47 H, Creatinine 2.48 H, Estim Creat Clear Calc 19.98, Est GFR (MDRD) Af Amer 32 L, Est GFR (MDRD) Non-Af 27 L, BUN/Creatinine Ratio 19.0, Glucose 102, Calcium 9.9, Troponin I High Sens 66 ABG Data ABG results: ABG 06/29/23 13:10 Specimen Type AYE VBG pH 7.46 H VBG pO2 64 H VBG HCO3 25 VBG Total CO2 26 VBG O2 Sat (Calc) 93 H VBG Base Excess 1 POC Mix VBG pCO2 Pt Tmp 34.8 L Liter Flow 4.[address] 06/29/23 12:46 IMPRESSION: Chronic involutional changes of the brain. N.B. : The above Results were Read Back by Mahendra Canada MD to Angélica Palomo and understanding confirmed on 06/29/2023 13:00:06 (ET). Electronically Signed: Mahendra Canada MD at 13:01 EDT , ADDENDUM: 06/29/23 1308 IMPRESSION: Chronic involutional changes of the brain. N.B. : The above Results were Read Back by Mahendra Canada MD to Angélica Palomo and understanding confirmed on 06/29/2023 13:00:06 (ET). Electronically Signed: Mahendra Canada MD at 13:01 EDT , Chest X-Ray 06/29/23 13:14 IMPRESSION: Cardiomegaly. The lungs are clear. Electronically Signed: Mahendra Canada MD at 13:51 EDT , Assessment & Plan Assessment/Plan PLAN: Plan Darryl on CKD 3 * Creatinine today is 2.99. His baseline looks to be around 2.1. * BUN creatinine seems to have stabilized. * Nephrology on board. 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 * However the DARRYL on CKD is likely thought to be prerenal and per nephrology, may be cardiorenal syndrome as the thinking is that patient may have pulmonary hypertension and had been on diuretics which caused hypotension. * Fena is less than 1%. * Per nephrology, no need to start patient on hemodialysis. * Will start Lasix 40 mg daily today. * Continue holding losartan. * 4. Acute on chronic diastolic heart failure * EF is 45 to 50% per 2D echo done during this admission. * diuresis resumed today with PO lasix 40mg daily * monitor intake and output chart * on metoprolol. * 5. Chronic Afib: rate controlled. On metoprolol. On coumadin. INR today is pending. 6. Hyperlipidemia: On statin. 7. CAD s/p CABG: On aspirin, Imdur and Lipitor as well as metoprolol. Losartan on hold on account of DARRYL on CKD 8. Type 2 diabetes mellitus: On insulin sliding scale. Accu-Cheks AC at bedtime. DVT Prophylaxis: Not indicated as patient is anticoagulated on Coumadin.
--- NOTE | 2023-06-29 14:24 | PCM.HP.STD ---
[facility] - General General Date of Admission: 06/29/23 Date of Service: 06/29/23 Chief Complaint: Confusion and slurred speech/language deficit, dysarthria in the morning HPI Narrative JODIE SILVERIO, is a 83 M with multiple comorbidities as listed below while brought to ED by EMS for confusion, slurred speech mild language deficit about 11:45 AM today. Stroke alert was called and patient was seen by [facility], telestroke. Patient granddaughter is near bedside therefore history mainly was taken from her and from the patient. Apparently felt weak yesterday but in the morning he was confused. As per the granddaughter, he could not understand the conversation, his sentences were not making sense and was garbled. He was also slurring with dysarthria. This got better in the ER. Patient cannot understand and answer simple question. He is still disoriented to time and he answered wrong with a month in the ER. Patient has DARRYL on CKD stage IV therefore CT angiogram was not done. Patient also has A-fib with slow ventricular response and heart rate drops into the 40s. Currently in low 50s. Patient on metoprolol 12.5 mg twice daily. Patient has history of four-vessel CABG, AVR, chronic combined heart failure, obstructive sleep apnea and oxygen and BiPAP and chronic A-fib [facility] Medical History Acute exacerbation of CHF (congestive heart failure) Acute on chronic diastolic (congestive) heart failure Acute respiratory failure with hypoxia Anemia Atherosclerosis of coronary artery bypass graft without angina pectoris Atherosclerosis of coronary artery of [place] heart without angina pectoris Atrial fibrillation with rapid ventricular response (07/11/16) Cholecystitis Chronic combined systolic and diastolic CHF (congestive heart failure) Chronic renal failure, stage 3 (moderate) Chronic respiratory failure with hypoxia COPD (chronic obstructive pulmonary disease) Essential (primary) hypertension Hyperlipemia Left bundle branch block Localized edema Lymphedema Morbid obesity with BMI of 45.0-49.9, adult Non-rheumatic aortic stenosis Obstructive sleep apnea Ocular migraine Paroxysmal atrial fibrillation Restrictive airway disease Right lower lobe pneumonia Sepsis TIA (transient ischemic attack) Type 2 diabetes mellitus without complications Venous insufficiency of both lower extremities Home Medications aspirin 81 mg tablet,delayed release 81 mg PO DAILY HEART HEALTH 07/11/16 [History Last Taken 01/29/20] atorvastatin 40 mg tablet 40 mg PO QHS CHOLSTEROL 07/11/16 [History Last Taken 01/29/20] multivitamin 1 ea PO DAILY HEALTH MAINTENANCE 07/11/16 [History Last Taken 01/29/20] insulin regular human 100 unit/mL injection solution 25 unit subcut BID DIABETES 07/24/16 [History Last Taken 01/29/20] cholecalciferol (vitamin D3) 25 mcg (1,000 unit) tablet 25 mcg PO DAILY SUPPLEMENT 10/26/16 [History Last Taken 01/29/20] sertraline 25 mg tablet 25 mg PO DAILY DEPRESSION 01/10/18 [History Last Taken 01/29/20] insulin NPH isoph U-100 human 100 unit/mL subcutaneous suspension 25 unit subcut BID DIABETES 03/08/18 [History Last Taken 01/29/20] metoprolol tartrate 25 mg tablet 12.5 mg PO BID BLOOD PRESSURE 09/27/19 [History Last Taken 01/29/20] famotidine 20 mg tablet 20 mg PO DAILY GERD 11/13/19 [History Last Taken 01/29/20] olanzapine 2.5 mg tablet 2.5 mg PO QHS DEPRESSION 11/13/19 [History Last Taken 01/29/20] allopurinol 300 mg tablet 150 mg PO DAILY GOUT 12/07/21 [History Last Taken Unknown] levetiracetam 500 mg tablet 250 mg PO BID SEIZURES 12/07/21 [History Last Taken Unknown] psyllium husk 0.4 gram capsule 0.4 g PO BID CONSTIPATION 12/07/21 [History Last Taken Unknown] furosemide 40 mg tablet 40 - 80 mg (1 - 2 x 40 mg) PO DAILY #180 tabs 09/17/22 [Rx Last Taken Unknown] apixaban 2.5 mg tablet (Eliquis) 2.5 mg PO BID BLOOD THINNER 10/07/22 [History Last Taken Unknown] calcitriol 0.25 mcg capsule 0.5 mcg PO MOWEFR SUPPLEMENT 10/07/22 [History Last Taken Unknown] isosorbide mononitrate 30 mg tablet,extended release 24 hr 30 mg PO DAILY HEART #90 tabs 02/01/23 [Rx Last Taken Unknown] Allergy/AdvReac Type Severity Reaction Status Date / Time Penicillins [PCN] Allergy Swelling Verified 01/31/23 15:29 Family History Father Myocardial infarction Mother CVA (cerebral vascular accident) Brother CAD (coronary artery disease) Diabetes Surgical History H/O aortic valve replacement (02/24/16) H/O coronary artery bypass surgery (02/24/16) Hx of cholecystectomy (01/13/17) Social History Smoking Status: Former smoker how long ago did patient quit smokin + years alcohol intake: never substance use type: does not use caffeine: Yes Type: carbonated beverages and tea ROS ROS Narrative 14 system ROS is not complete as patient is confused and disoriented. Mainly taken from patient's granddaughter near the bedside. Constitutional: Reports fatigue and weakness. No fever. HEENT: Reports systems reviewed and no addt'l complaints, except as documented Respiratory/Chest: No acute shortness of breath or respiratory distress or wheezing. On baseline oxygen and BiPAP CVS: Denies chest pain tightness or pressure Gastrointestinal: Denies coffee ground emesis, hematemesis or vomiting Genitourinary: Not clear patient cannot give history Musculoskeletal: Chronic joint pain and limited range of motion. No acute injury Neurologic: Denies seizure-like symptoms. skin: History of bilateral lower legs great saphenous vein retrieved for CABG. Venous hypertension Endocrinology: Reports systems reviewed and no addt'l complaints, except as documented Hematologic/Lymphatic: Reports systems reviewed and no addt'l complaints, except as documented Rest 14 ROS are negative except as mentioned in HPI Review of Systems ROS Unobtainable: due to encephalopathy Vital Signs Vital Signs Vital Signs: 06/29/23 12:36 06/29/23 12:49 06/29/23 12:49 Temperature 96.6 F L Temperature Source Temporal Pulse Rate 46 L Respiratory Rate 18 Blood Pressure 172/86 H Blood Pressure Mean 114 Pulse Ox 96 Oxygen Delivery Method Nasal Cannula Nasal Cannula Oxygen Flow Rate (L/min) 4 4 06/29/23 12:49 Temperature Temperature Source Pulse Rate 57 L Respiratory Rate 19 H Blood Pressure 172/86 H Blood Pressure Mean 114 Pulse Ox 95 Oxygen Delivery Method Nasal Cannula Oxygen Flow Rate (L/min) 4 Weight Weight: 265 lb 3.457 oz Body Mass Index (BMI) 44.1 Physical Exam Narrative General: Awake, alert, disoriented to time and situation. Cooperative, morbid obesity BMI 44.1 kg/m? HEENT: Atraumatic, PERRLA, EOMI, Normocephalic Oral: Oral mucosa dry. Deep oropharyngeal extension could not be visualized Neck: Supple, No JVD, Negative Carotid Bruits Lungs: Air entry diminished in bilateral lung bases. No crepitation/rhonchi Cardiovascular: A-fib with slow ventricular response. Systolic murmur present LLSB. Abdomen: Bowel Sounds Present, Soft, Non Tender, Non-Distended : No renal angle tenderness. No suprapubic tenderness. Extremities: Mild pitting edema, Capillary Refill Less than 3 Seconds Skin: Venous hypertension changes in lower legs with incompetence deep veins. Increase pigmentation Musculoskeletal: No Tenderness to Palpation of Joints or Extremities. ROM restricted. Degenerative arthritis Neurological: Cranial nerves II-XII grossly intact, DTR 2+/4. No acute weakness or sensory change. Confused. Mild language deficit and dysarthria resolved. NIH stroke scale 1. Psych/Mental Status: Flat affect. Results Lab / Micro Data 06/29/23 12:40 06/29/23 12:40 Labs: Laboratory Results - last 24 hr 06/29/23 12:40: WBC 9.5, RBC 3.69 L, Hgb 11.6 L, Hct 36.7 L, MCV 99.5 H, MCH 31.4, MCHC 31.6 L, RDW Std Deviation 51.5 H, RDW Coeff of Yeny 14.2, Plt Count 143 L, MPV 11.3, Immature Gran % (Auto) 0.500, Neut % (Auto) 70.0, Lymph % (Auto) 21.1, [place] % (Auto) 6.4, Eos % (Auto) 1.4, Baso % (Auto) 0.6, Absolute Neuts (auto) 6.7, Absolute Lymphs (auto) 2.01, Nucleated RBC % 0, PT 18.0 H, INR 1.5, APTT 40.4 H, Sodium 141, Potassium 4.7, Chloride 107, Carbon Dioxide 28.0, Anion Gap 6, BUN 47 H, Creatinine 2.48 H, Estim Creat Clear Calc 19.98, Est GFR (MDRD) Af Amer 32 L, Est GFR (MDRD) Non-Af 27 L, BUN/Creatinine Ratio 19.0, Glucose 102, Calcium 9.9, Troponin I High Sens 66 ABG Data ABG results: ABG 06/29/23 13:10 Specimen Type AYE VBG pH 7.46 H VBG pO2 64 H VBG HCO3 25 VBG Total CO2 26 VBG O2 Sat (Calc) 93 H VBG Base Excess 1 POC Mix VBG pCO2 Pt Tmp 34.8 L Liter Flow 4.[address] 06/29/23 12:46 IMPRESSION: Chronic involutional changes of the brain. N.B. : The above Results were Read Back by Mahendra Canada MD to Angélica Palomo and understanding confirmed on 06/29/2023 13:00:06 (ET). Electronically Signed: Mahendra Canada MD at 13:01 EDT , ADDENDUM: 06/29/23 1308 IMPRESSION: Chronic involutional changes of the brain. N.B. : The above Results were Read Back by Mahendra Canada MD to Angélica Palomo and understanding confirmed on 06/29/2023 13:00:06 (ET). Electronically Signed: Mahendra Canada MD at 13:01 EDT , Chest X-Ray 06/29/23 13:14 IMPRESSION: Cardiomegaly. The lungs are clear. Electronically Signed: Mahendra Canada MD at 13:51 EDT , Assessment & Plan Assessment/Plan (1) TIA (transient ischemic attack): PLAN: Plan This is a 81-year-old gentleman being admitted for generalized weakness confusion and work-up for TIA 1. Confusion disorientation possible acute encephalopathy probably metabolic encephalopathy or TIA: Patient is being admitted in PCU. NIH stroke scale 1 for telling wrong month. PT, OT, speech therapy/swallow evaluation and management, nursing NIH stroke scale, BP and glucose monitoring and control as per stroke protocol. TSH, A1c fasting lipid profile tomorrow AM. MRI brain and 2D echo with bubble contrast study ordered. Patient is at risk for contrast induced nephropathy for CT or MRI contrast therefore carotid Doppler ordered. Continue baby aspirin and high intensity atorvastatin 2. CKD stage V: Patient baseline creatinine stays between 2.84-3.4. Currently it is 2.48. During previous admission for for pneumonia in January 2022 patient was started on oxygen and [facility] nephrology saw the patient. Patient is on Lasix 40 mg daily, start from tomorrow AM. 3. Multiple cardiac conditions including chronic A-fib with slow ventricular response, coronary artery disease status post 2 times CABG, chronic systolic and diastolic heart failure and hypertension: BP is 150/63 on permissive hypertensive range. Hold losartan. Patient also has slow ventricular response therefore hold metoprolol for heart rate less than 50/min. Patient on aspirin and Eliquis at home therefore continued 4. Chronic hypoxic respiratory failure, morbid obesity, BMI 44.1 kg/m?, obstructive sleep apnea/obesity hypoventilation syndrome on BiPAP: Patient follows Dr. Cline. As per last PFT, patient has mild restrictive ventilatory impairment. Patient on BiPAP and 2 L of home oxygen continued. 5. Type 2 diabetes mellitus: Patient glucose on BMP is low 102. As per EMS, Accu-Chek was 125. Acute [place] covered with sliding scale. Home dose of NPH insulin decreased and titrate as per Accu-Cheks. DVT Prophylaxis, high risk: Patient is on Eliquis. Charges/Coding Visit Charges Inpatient E&M: 33114 Init Hosp L3 Procedures Hospitalists Procedures: 32671 Advncd Care Plan 30 Min
--- NOTE | 2023-06-29 14:26 | EDS_ITS ---
HPI History of Present Illness Chief Complaint: Stroke Alert Informant: patient, family and EMS Narrative Narrative: Patient is an 83-year-old male with history of TIAs, nonrheumatic aortic stenosis (aortic valve replacements), left bundle branch block, hypertension, proximal atrial fibrillation (on Eliquis), obstructive sleep apnea, chronic hypoxic respiratory failure on home oxygen as well as chronic heart failure presenting from home for concern of increased confusion and garbled speech. Granddaughter who provides a history. She states that sometimes he forgets things but she will put him to bed and when he wakes up he will be fine. She states that he had episode like that yesterday which is typical. When she got home from work (she works third shift) he was sleeping in the chair and seemed confused. At he thought it was 9 or 10:00 and when she told him it was 8:33 he thought there was just something wrong with the clock she had. She also notes she is acting slightly out of character. She went to bed and awoke later in the morning when she woke him up he seemed normal. However he did not follow her out of the room and seemed confused again. He was fidgeting with his oxygen and CPAP. He then was slurring his words and she could not really understand what he was saying. At that time patient called 911. This was at 11:45 AM. EMS reports that patient was having expressive aphasia and slurred speech as well as some generalized confusion. Stroke alert was called in the field. [facility] Medical History Acute exacerbation of CHF (congestive heart failure) Acute on chronic diastolic (congestive) heart failure Acute respiratory failure with hypoxia Anemia Atherosclerosis of coronary artery bypass graft without angina pectoris Atherosclerosis of coronary artery of [place] heart without angina pectoris Atrial fibrillation with rapid ventricular response (07/11/16) Cholecystitis Chronic combined systolic and diastolic CHF (congestive heart failure) Chronic renal failure, stage 3 (moderate) Chronic respiratory failure with hypoxia COPD (chronic obstructive pulmonary disease) Essential (primary) hypertension Hyperlipemia Left bundle branch block Localized edema Lymphedema Morbid obesity with BMI of 45.0-49.9, adult Non-rheumatic aortic stenosis Obstructive sleep apnea Ocular migraine Paroxysmal atrial fibrillation Restrictive airway disease Right lower lobe pneumonia Sepsis TIA (transient ischemic attack) Type 2 diabetes mellitus without complications Venous insufficiency of both lower extremities Home Medications aspirin 81 mg tablet,delayed release 81 mg PO DAILY HEART HEALTH 07/11/16 [History Last Taken 01/29/20] atorvastatin 40 mg tablet 40 mg PO QHS CHOLSTEROL 07/11/16 [History Last Taken 01/29/20] multivitamin 1 ea PO DAILY HEALTH MAINTENANCE 07/11/16 [History Last Taken 01/29/20] insulin regular human 100 unit/mL injection solution 25 unit subcut BID DIABETES 07/24/16 [History Last Taken 01/29/20] cholecalciferol (vitamin D3) 25 mcg (1,000 unit) tablet 25 mcg PO DAILY SUPPLEMENT 10/26/16 [History Last Taken 01/29/20] sertraline 25 mg tablet 25 mg PO DAILY DEPRESSION 01/10/18 [History Last Taken 01/29/20] insulin NPH isoph U-100 human 100 unit/mL subcutaneous suspension 25 unit subcut BID DIABETES 03/08/18 [History Last Taken 01/29/20] metoprolol tartrate 25 mg tablet 12.5 mg PO BID BLOOD PRESSURE 09/27/19 [History Last Taken 01/29/20] famotidine 20 mg tablet 20 mg PO DAILY GERD 11/13/19 [History Last Taken 01/29/20] olanzapine 2.5 mg tablet 2.5 mg PO QHS DEPRESSION 11/13/19 [History Last Taken 01/29/20] allopurinol 300 mg tablet 150 mg PO DAILY GOUT 12/07/21 [History Last Taken Unknown] levetiracetam 500 mg tablet 250 mg PO BID SEIZURES 12/07/21 [History Last Taken Unknown] psyllium husk 0.4 gram capsule 0.4 g PO BID CONSTIPATION 12/07/21 [History Last Taken Unknown] furosemide 40 mg tablet 40 - 80 mg (1 - 2 x 40 mg) PO DAILY #180 tabs 09/17/22 [Rx Last Taken Unknown] apixaban 2.5 mg tablet (Eliquis) 2.5 mg PO BID BLOOD THINNER 10/07/22 [History Last Taken Unknown] calcitriol 0.25 mcg capsule 0.5 mcg PO MOWEFR SUPPLEMENT 10/07/22 [History Last Taken Unknown] isosorbide mononitrate 30 mg tablet,extended release 24 hr 30 mg PO DAILY HEART #90 tabs 02/01/23 [Rx Last Taken Unknown] Allergy/AdvReac Type Severity Reaction Status Date / Time Penicillins [PCN] Allergy Swelling Verified 01/31/23 15:29 Family History Father Myocardial infarction Mother CVA (cerebral vascular accident) Brother CAD (coronary artery disease) Diabetes Surgical History H/O aortic valve replacement (02/24/16) H/O coronary artery bypass surgery (02/24/16) Hx of cholecystectomy (01/13/17) Social History Smoking Status: Former smoker how long ago did patient quit smokin + years alcohol intake: never substance use type: does not use caffeine: Yes Type: carbonated beverages and tea ROS ROS ED Eyes Eyes: Denies blurry vision Cardiovascular Cardiovascular: Denies chest pain or palpitations Respiratory/Chest Respiratory/Chest: Denies cough or dyspnea Gastrointestinal Gastrointestinal: Denies nausea or vomiting Musculoskeletal Musculoskeletal: Denies arthralgias or myalgias Neurologic Neurologic: Reports weakness and other Details: Slurred speech, confusion Psychiatric Psychiatric: Denies anxiety Hematologic/Lymphatic Hematologic/Lymphatic: Reports easy bleeding and easy bruising EXAM Physical Exam Const Vital Signs: 06/29/23 12:36 06/29/23 12:49 06/29/23 12:49 Temperature 96.6 F L Temperature Source Temporal Pulse Rate 46 L Respiratory Rate 18 Blood Pressure 172/86 H Blood Pressure Mean 114 Pulse Ox 96 Oxygen Delivery Method Nasal Cannula Nasal Cannula Oxygen Flow Rate (L/min) 4 4 06/29/23 12:49 06/29/23 13:36 Temperature Temperature Source Pulse Rate 57 L 47 L Respiratory Rate 19 H 21 H Blood Pressure 172/86 H 156/60 H Blood Pressure Mean 114 92 Pulse Ox 95 96 Oxygen Delivery Method Nasal Cannula Nasal Cannula Oxygen Flow Rate (L/min) 4 4 Positive well nourished and well developed Constitutional Narrative: Chronically ill-appearing General Appearance ED: well developed HEENT Reports moist mucous membranes Eyes PERRL and EOMs intact bilaterally Neck supple and no JVD Chest Wall inspection of chest normal and palpation of chest normal Resp normal respiratory effort Cardio Rate: bradycardia Rhythm: regular rhythm GI non-tender and non-distended Extremity General Extremety ED: Yes edema; Negative for deformity General Extremity: edema; Negative for deformity Neuro CN's II-XII intact bilaterally and no sensory deficits noted Neuro Narrative: NIH equals 1 as patient states the month is December No dysarthria or expressive aphasia appreciated at this time Sensorium / Orientation: alert, oriented to person, oriented to place and confused Speech: speech normal Motor Exam: general weakness Psych mental status grossly normal Skin no wounds NIHSS NIHSS Initial: 1a Level of Consciousness: 0 1b LOC Questions (Score 2 if aphasic/stupor): 1 1c LOC Commands (Only score 1st attempt): 0 2 Best Gaze (If aphasic, use reflexive mvmts.): 0 3 Visual: 0 4 Facial Palsy: 0 5 Motor Arm Right (UN = amputation/fusion): 0 5 Motor Arm Left: 0 6 Motor Leg Right: 0 6 Motor Leg Left: 0 7 Limb ataxia (Only + if out of proportion): 0 8 Sensory (Aphasia/stupor=0 or 1, coma=2): 0 9 Best Language: 0 10 Dysarthria (mute, coma=2, intubated=UN): 0 11 Extinction and Inattention (only scored if +): 0 Total Score: 1 MDM MDM MDM Narrative Medical decision making narrative: Patient evaluated for episode of confusion as well as concern for slurred speech/expressive aphasia. Stroke alert was called in route. Patient is have a history of TIAs. Patient evaluated immediately at the door. Vital signs are significant for hypertension mild bradycardia. His symptoms seem to be improving however. His NIH is 1 only for not knowing the month. CT of the brain is ordered and stroke evaluation through [facility]est[facility] was performed. Case discussed with Dr. Tavarez, teleneurology, who agrees that patient is not a TNK candidate as he is on Eliquis as well as with his low NIH/resolving symptoms. Is possible he could have had a stroke/TIA versus some type of epileptic episode versus metabolic process causing the symptoms. Patient will be admitted to the hospital for further evaluation of this. CT is not performed as patient does have CKD and his creatinine is 2.48. Patient does have some intermittent episodes of bradycardia down into the 30s while in the ER however he remains asymptomatic during these. VBG was obtained as patient has chronic heart failure and concern of possible hypercapnia as a cause of his symptoms. His pH is actually mildly alkalotic and PCO2 is appropriate so I think this is less likely. He does not have a leukocytosis, acute anemia or other signs of an acute infection or symptomatic anemia as a cause of his symptoms. No acute electrode abnormalities today. Work-up otherwise largely on remarkable and the exact cause of the patient's symptoms is not clear. Case is discussed with admitting physician, Dr. Ashley. Patient has no progression of symptoms while in the emergency room and is returned to his baseline. Lab Data Attestation: I reviewed the patient's lab results. Labs: Laboratory Results - last 24 hr 06/29/23 12:40 WBC 9.5 RBC 3.69 L Hgb 11.6 L Hct 36.7 L MCV 99.5 H MCH 31.4 MCHC 31.6 L RDW Std Deviation 51.5 H RDW Coeff of Yeny 14.2 Plt Count 143 L MPV 11.3 Immature Gran % (Auto) 0.500 Neut % (Auto) 70.0 Lymph % (Auto) 21.1 Gila % (Auto) 6.4 Eos % (Auto) 1.4 Baso % (Auto) 0.6 Absolute Neuts (auto) 6.7 Absolute Lymphs (auto) 2.01 Nucleated RBC % 0 PT 18.0 H INR 1.5 APTT 40.4 H Sodium 141 Potassium 4.7 Chloride 107 Carbon Dioxide 28.0 Anion Gap 6 BUN 47 H Creatinine 2.48 H Estim Creat Clear Calc 19.98 Est GFR (MDRD) Af Amer 32 L Est GFR (MDRD) Non-Af 27 L BUN/Creatinine Ratio 19.0 Glucose 102 Calcium 9.9 Phosphorus 3.9 Magnesium 1.9 Troponin I High Sens 66 ABG Data ABG results: ABG 06/29/23 13:10 Specimen Type AYE VBG pH 7.46 H VBG pO2 64 H VBG HCO3 25 VBG Total CO2 26 VBG O2 Sat (Calc) 93 H VBG Base Excess 1 POC Mix VBG pCO2 Pt Tmp 34.8 L Liter Flow 4.0 Radiography Diagnostic Testing: Clinical Impression(s) from Imaging Studies Brain CT 06/29/23 12:46 IMPRESSION: Chronic involutional changes of the brain. N.B. : The above Results were Read Back by Mahendra Canada MD to Angélica Palomo and understanding confirmed on 06/29/2023 13:00:06 (ET). Electronically Signed: Mahendra Canada MD at 13:01 EDT , ADDENDUM: 06/29/23 1308 IMPRESSION: Chronic involutional changes of the brain. N.B. : The above Results were Read Back by Mahendra Canada MD to Angélica Palomo and understanding confirmed on 06/29/2023 13:00:06 (ET). Electronically Signed: Mahendra Canada MD at 13:01 EDT , Chest X-Ray 06/29/23 13:14 IMPRESSION: Cardiomegaly. The lungs are clear. Electronically Signed: Mahendra Canada MD at 13:51 EDT , Rhythm Strip Rhythm Strip: A-fib Rate: 43 Ectopy: None EKG Initial EKG: Attestation: I personally reviewed and interpreted this EKG as follows: Interpretation: Atrial Fibrillation Comments: Atrial fibrillation with slow ventricular response with a rate of 43 bpm Left bundle branch block Left axis Nonspecific T wave changes Compared to prior EKG on 11/06/2020, patient does not have any significant exchange consultant Discussion w/another healthcare provider: Hospitalist and [employer] Discharge Plan Dx/Rx/DC Orders Clinical Impression: Essential (primary) hypertension, TIA (transient ischemic attack), Paroxysmal atrial fibrillation Disposition Disposition: Acute Care Hospital [facility] Discharge Date/Time: 06/29/23 14:54
[2023-06-29 14:55] LABS: Bacteria 0 SEEN /hpf (None Seen); Mucous, Urine 0 SEEN /hpf (<or=2+); Red Blood Cells-Urine 0 SEEN /hpf (0-5); Squamous Epithelial Cells - UA 0 SEEN /hpf (0-5); White Blood Cells 0 SEEN /hpf (0-5)
[2023-06-29 15:05] LABS: Color, Urine Yellow (Yellow); Glucose, Dipstick Normal (Normal); Ketone-Dipstick Negative (Negative); Leukocyte Esterase-Dipstick Negative /ul (Negative); Nitrite-Dipstick Negative (Negative); Occult Blood-Urine Negative /ul (Negative); Protein-Dipstick 30 mg/dl (Negative); Specific Gravity, Urine 1.015 (1.002-1.030); Urine Bilirubin Dipstick Negative (Negative); Urine Clarity Clear (Clear); Urine Urobilinogen Normal (Normal)
[2023-06-29 15:22] LABS: Magnesium 1.9 mg/dL (1.6-2.6); Phosphorus 3.9 mg/dL (2.5-4.9)
--- NOTE | 2023-06-29 15:35 | CDU_ITS ---
Reason For Study: TIA Rt. Velocities/BP Lt. Velocities/BP Prox CCA 75.9/10.7 cm/sec. Prox CCA 81.7/11.3 cm/sec. Mid CCA 73/8.8 cm/sec. Mid CCA 63/11.3 cm/sec. Dist CCA 62.6/9.7 cm/sec. Dist CCA 66.3/10.2 cm/sec. Prox ICA 86.1/17.9 cm/sec. Prox ICA 97.4/17.4 cm/sec. Mid ICA 66.3/12.4 cm/sec. Mid ICA 58.1/11.4 cm/sec. Dist ICA 63/11.3 cm/sec. Dist ICA 58.1/12.6 cm/sec. Rt. ICA/CCA = 1.18. Lt. ICA/CCA = 1.47. Prox ECA 64.5/5 cm/sec. Prox ECA 103.6/11.3 cm/sec. Rt. Vert. 48.7/11.3 cm/sec. Lt. Vert. 38.8/10.2 cm/sec. Right Extracranial There is homogeneous, smooth atherosclerotic plaque noted in the right common carotid artery. There is heterogeneous, irregular atherosclerotic plaque noted in the right internal carotid artery. There is heterogeneous, irregular atherosclerotic plaque noted in the right external carotid artery. Antegrade flow is noted in the right vertebral artery. Left Extracranial There is homogeneous, smooth atherosclerotic plaque noted in the left common carotid artery. There is heterogeneous, irregular atherosclerotic plaque noted in the left internal carotid artery. There is heterogeneous, irregular atherosclerotic plaque noted in the left external carotid artery. The left external carotid artery is not well visualized. Antegrade flow is noted in the left vertebral artery. Procedure Carotid Duplex [id number]. This is a Carotid Duplex examination using B-mode, color flow and specral Doppler. Exam performed portable in patient room. VL/Carotid Duplex Ultrasound Interpretation Summary Mild (<50%) stenosis right extracranial internal carotid. Mild (<50%) stenosis left extracranial internal carotid. Patent and antegrade vertebrals bilaterally. Ordering Physician: Rigoberto Ashley Referring Physician: Riso Downey Performed By: Nikkie Holliday RVT
--- NOTE | 2023-06-29 15:35 | ECHOCS_ITS ---
Reason For Study: TIA/CVA Procedure This was a 2D Doppler, Color Flow transthoracic echocardiogram. The study was technically difficult. Contrast injection was performed. Exam performed portable in patient room. Left Ventricle Normal LV size. The estimated ejection fraction is 40 %. Infero-Basal: Hypokinetic. Right Ventricle Normal RV size. Normal systolic function. Atria The left atrium is mildly enlarged. The right atrium is mildly enlarged. Bubble contrast study negative for right to left interatrial shunt. Mitral Valve Moderate focal mitral valve thickening. There is mild mitral annular calcification. Tricuspid Valve Normal tricuspid valve. Mild to moderate (1-2+) tricuspid valve insufficiency. Pulmonary artery systolic pressure is 44 mmHg. Aortic Valve Bioprosthetic aortic valve. Pulmonic Valve The pulmonic valve is not well visualized. Great Vessels Normal aortic root. The pulmonary is not well visualized. Pericardium/Pleural No pericardial effusion. Medication Performed a rapid injection of agitated mix of 9 cc saline and 1cc air to assess for atrial septal defect. Diluted definity 3ml given slow IV push to enhance endocardial definition. MMode/2D Measurements & Calculations LVIDd: 4.8 cm IVSd: 1.3 cm LVOT diam: 2.0 cm LVIDs: 3.8 cm LVPWd: 1.3 cm RVDd: 3.6 cm FS: 20.5 % LVOT area: 3.3 cm2 Ao root diam: 3.8 cm LAV(MOD-bp): 75.7 ml LVAd ap4: 28.0 cm2 LAV(MOD-bp) Indexed: 34.0 ml/m2 LVLd ap4: 7.9 cm LAV(MOD-sp2): 80.8 ml EDV(MOD-sp4): 80.3 ml LAV(MOD-sp4): 68.7 ml EDV(sp4-el): 84.5 ml LVAs ap4: 19.9 cm2 LVLs ap4: 6.6 cm ESV(MOD-sp4): 49.0 ml ESV(sp4-el): 50.3 ml EF(MOD-sp4): 38.9 % EF(sp4-el): 40.4 % SV(MOD-sp4): 31.3 ml SV(sp4-el): 34.2 ml LA A4 area: 23.7 cm2 LA dimension(2D): 5.1 cm RA A4 area: 20.8 cm2 Doppler Measurements & Calculations MV E max malini: 163.1 cm/sec MV V2 max: 192.8 cm/sec Ao V2 max: 197.3 cm/sec MV max P.9 mmHg Ao max P.8 mmHg MV V2 mean: 89.3 cm/sec Ao V2 mean: 137.5 cm/sec MV mean P.1 mmHg Ao mean P.5 mmHg MV V2 VTI: 63.4 cm Ao V2 VTI: 49.0 cm MVA(VTI): 1.6 cm2 AV (velocity ratio): 0.64 MICHAEL(I,D): 2.1 cm2 MICHAEL(V,D): 2.0 cm2 LV V1 max: 120.3 cm/sec SV(LVOT): 102.6 ml PA V2 max: 92.9 cm/sec LV V1 max P.8 mmHg LV V1 mean P.4 mmHg LV V1 mean: 87.6 cm/sec LV V1 VTI: 31.6 cm PI end-d malini: 162.5 cm/sec TR max malini: 309.9 cm/sec TR max P.4 mmHg ECHO/Echo Complete W/ Contrast Interpretation Summary Normal LV size. The estimated ejection fraction is 40 %. Mild to moderate (1-2+) tricuspid valve insufficiency. Pulmonary artery systolic pressure is 44 mmHg. Bubble contrast study negative for right to left interatrial shunt. Contrast injection was performed. Ordering Physician: Rigoberto Ashley Referring Physician: Rios Downey Performed By: Susie Sheldon RDCS, RVT
--- NOTE | 2023-06-29 15:35 | MRI_ITS ---
HISTORY: TIA. TECHNIQUE: Multiplanar and multisequence MR images of the brain were obtained without contrast. 283 images. COMPARISON: CT prior day. FINDINGS: BRAIN PARENCHYMA: Multiple foci and small zones of increased T2 FLAIR signal in the bilateral central white matter. No abnormal focus of restricted diffusion. No acute intracranial hemorrhage identified. CSF SPACES: Generalized volume loss. No significant midline shift or other mass effect.No extra-axial fluid collection. VASCULAR SYSTEM: Major intracranial flow voids are maintained. OTHER: No significant air fluid levels in the paranasal sinuses or mastoid air cells. Bilateral lens resections. Evaluation of the intracranial flow voids due to motion artifact. MRI/Brain without Contrast IMPRESSION: No evidence for acute infarct. Chronic involutional and white matter changes. Electronically Signed: Ara Altamirano MD at 11:41 EDT ,
[2023-06-29] MEDS: 0.9% Normal Saline 1,000 ML 75 ML IV (15:44)
[2023-06-29 18:15] LABS: Bedside Glucose 74 mg/dL (74-106)
[2023-06-29] MEDS: Atorvastatin Calcium 80 MG Tablet PO (22:12)
[2023-06-29] MEDS: APIXABAN 2.5 MG TABLET (WCH) PO (22:12)
[2023-06-29] MEDS: Insulin NPH Human 100 UNITS/ML PEN 20 UNITS SC (22:13)
[2023-06-29] MEDS: OLANZapine 2.5 MG Tablet PO (22:13)
[2023-06-29] MEDS: levETIRAcetam 250 MG Tablet PO (22:13)
[2023-06-29] MEDS: Psyllium 1 PACKET PO (22:13)
[2023-06-29 23:01] LABS: Bedside Glucose 99 mg/dL (74-106)
[2023-06-30] VITALS (10 sets, daily range): BP systolic 126–188; BP diastolic 63–99; PULSE 64–94; RESP 16–20; TEMP 36.2–36.6; O2SAT 91–97; BMI 41.1; BMI 41.5
[2023-06-30] MEDS: LORazepam 2 MG/ML Syringe 1 MG IV (02:10)
[2023-06-30 05:44] LABS: Absolute Lymphocyte Count 1.94 X10^3/uL (0.83-4.51); Absolute Neutrophil Count 7.7 X10^3/uL (2.0-7.7); Basophil# 0.05 X10^3/uL; Basophil% 0.5 % (0-1); Eosinophil# 0.14 X10^3/uL; Eosinophils% 1.3 % (0-5); Hematocrit 36.3 % (40-54); Hemoglobin 11.5 g/dL (13.0-16.5); Lymphocyte # 1.94 X10^3/ul (0.83-4.51); Lymphocyte % 18.2 % (19-41); Mean Corp Hgb Conc 31.7 g/dL (32-36); Mean Corpuscular Hgb 31.1 pg (27.0-32.0); Mean Corpuscular Volume 98.1 fL (80-94); Mean Platelet Vol. 11.1 fl (6.2-12.0); Monocyte# 0.76 X10^3/uL; Monocyte% 7.1 % (0-10); NRBC Flagged by Analyzer 0 % (0-5); Neutrophil # 7.72 X10^3/uL (2.7-7.7); Neutrophil % 72.4 % (47-70); Platelet Count 125 K/mm3 (150-450); RBC Distribution Width CV 14.1 % (11.6-14.6); RBC Distribution Width SD 50.9 fl (35.1-43.9); White Blood Count 10.7 K/mm3 (4.4-11.0)
[2023-06-30 06:30] LABS: Anion Gap 5 (5-15); BUN 47 mg/dL (7-18); BUN/Creat Ratio 19.3 RATIO (10-20); Calcium,Total 9.4 mg/dL (8.5-10.1); Chloride 107 mmol/L (98-107); Cholesterol 75 mg/dL (200); Creatinine, Serum 2.44 mg/dL (0.70-1.30); EST Glomerular Filtration Rate 27 mL/min (>60); Est Glom Filt Rate - Afr Amer 33 mL/min (>60); Glucose 121 mg/dL (74-106); High Density Lipoprotein 30 mg/dL; Potassium 4.3 mmol/L (3.5-5.1); Sodium Level 140 mmol/L (136-145); Thyroid Stim Hormone (TSH) 5.37 uIU/mL (0.358-3.74); Triglycerides 98 mg/dL; Very Low Density Lipoprotein 20 mg/dL (5-40)
[2023-06-30 07:39] LABS: Hemoglobin A1c 5.6 % (3.8-5.6)
--- NOTE | 2023-06-30 08:03 | NURSING ---
Unable to fully assess NIHSS this morning as pt not willing to fully cooperate at this time.
--- NOTE | 2023-06-30 11:26 | NURSING ---
Unable to fully assess NIHSS at this time as pt unable to fully cooperate at this time.
[2023-06-30 11:38] LABS: Bedside Glucose 129 mg/dL (74-106)
[2023-06-30 12:17] LABS: Bedside Glucose 116 mg/dL (74-106)
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
[2023-06-30 15:21] LABS: Allen Test Positive; Base Excess 0 mmol/L (-2 to +2); Bicarbonate 24.2 mmol/L (22-26); Blood Gas Specimen Type ART; O2 Delivery Device Cannula; PO2 81 mmHG (75-100); SITE R Radial; SO2 97 % (95-99); Total Carbon Dioxide 25 mmol/L; pCO2 34.5 mmHg (35-45); pH 7.45 (7.35-7.45)
[2023-06-30] MEDS: Sertraline 50 MG Tablet 25 MG PO (15:42)
[2023-06-30] MEDS: levETIRAcetam 250 MG Tablet PO ×2 (15:42→22:40)
[2023-06-30] MEDS: Allopurinol 100 MG Tablet 150 MG PO (15:42)
[2023-06-30] MEDS: APIXABAN 2.5 MG TABLET (WCH) PO ×2 (15:43→22:40)
[2023-06-30 17:40] LABS: Bedside Glucose 140 mg/dL (74-106)
--- NOTE | 2023-06-30 18:34 | PCM.PN.HOSP ---
Reason for Visit Reason for Visit: Diagnoses Transient cerebral ischemic attack, unspecified (06/30/23) Subjective Subjective Patient was seen and examined today, he remains confused, I talked at length with the granddaughter who was in the room at the time my examination. Patient's MRI of the brain did not show a stroke, I obtained an ammonia level which was normal and an ABG which did not show any signs of hypercapnia or hypoxia on 5 L. Patient does not recognize his granddaughter, he appears to be hallucinating, granddaughter states he does not drink alcohol, she states that he has been mildly confused at times at home but this is totally inappropriate for the patient now. I reviewed the patient's medications, I can see no medication which would cause an effect on his mentation, patient did receive Ativan according to nursing last night. Objective Data Objective Data Vital Signs: Vital Signs Temp Pulse Resp BP Pulse Ox O2 Del Method O2 Flow Rate 97.7 F L 76 18 126/99 H 93 Nasal Cannula 5 06/30/23 17:20 06/30/23 17:20 06/30/23 17:20 06/30/23 17:20 06/30/23 17:20 06/30/23 17:20 06/30/23 17:54 Oxygen Flow Rate (L/min) 5 Oxygen Delivery Method Nasal Cannula Weight: 113.2 kg Body Mass Index (BMI) 41.5 Intake & Output: Intake and Output for Last 24 Hours 06/28/23 06/29/23 06/30/23 23:59 23:59 23:59 Intake Total 120 / 120 190 / 190 Output Total 100 / 100 0 / 0 Balance 190 / 190 Lab / Micro Data 06/30/23 04:45 06/30/23 04:45 Labs: Laboratory Results - last 24 hr 06/29/23 22:11: POC Glucose 99 06/30/23 04:45: WBC 10.7, RBC 3.70 L, Hgb 11.5 L, Hct 36.3 L, MCV 98.1 H, MCH 31.1, MCHC 31.7 L, RDW Std Deviation 50.9 H, RDW Coeff of Yeny 14.1, Plt Count 125 L, MPV 11.1, Immature Gran % (Auto) 0.500, Neut % (Auto) 72.4 H, Lymph % (Auto) 18.2 L, [place] % (Auto) 7.1, Eos % (Auto) 1.3, Baso % (Auto) 0.5, Absolute Neuts (auto) 7.7, Absolute Lymphs (auto) 1.94, Nucleated RBC % 0, Sodium 140, Potassium 4.3, Chloride 107, Carbon Dioxide 28.0, Anion Gap 5, BUN 47 H, Creatinine 2.44 H, Estim Creat Clear Calc 20.30, Est GFR (MDRD) Af Amer 33 L, Est GFR (MDRD) Non-Af 27 L, BUN/Creatinine Ratio 19.3, Glucose 121 H, Hemoglobin A1c 5.6, Calcium 9.4, Triglycerides 98, Cholesterol 75, LDL Cholesterol 25, VLDL Cholesterol 20, HDL Cholesterol 30 L, TSH 5.37 H 06/30/23 08:25: POC Glucose 129 H 06/30/23 11:59: POC Glucose 116 H 06/30/23 14:51: Ammonia 28.0 06/30/23 17:01: POC Glucose 140 H ABG Data ABG results: ABG 06/30/23 15:17 Specimen Type ART Sample Site R Radial pH 7.45 Bicarbonate Actual 24.2 Total CO2 25 Base Excess 0 O2 Saturation 97 ABG pCO2 34.5 L ABG pO2 81 Pavel Test Positive O2 Delivery Device Cannula Liter Flow 5.0 Radiography Diagnostic Testing: Radiology Impression Brain MRI 06/29/23 15:35 IMPRESSION: No evidence for acute infarct. Chronic involutional and white matter changes. Electronically Signed: Ara Altamirano MD at 11:41 EDT , Carotid Duplex 06/29/23 15:35 Interpretation Summary Mild (<50%) stenosis right extracranial internal carotid. Mild (<50%) stenosis left extracranial internal carotid. Patent and antegrade vertebrals bilaterally. Ordering Physician: Rigoberto Ashley Referring Physician: Rios Downey Performed By: Nikkie Holliday RVT Rhythm Strip Rhythm Strip: A-fib Rate: 43 Ectopy: None Physical Exam Narrative Patient is morbidly obese Const Constitutional Narrative: Patient is lethargic, he does awaken to verbal stimuli and tactile stimuli, he does not carry on a conversation, he appears confused General Appearance: cooperative, well kempt and well developed HEENT normocephalic, head/scalp atraumatic and moist oral mucous membranes Eyes PERRL, EOMs intact bilaterally and conjunctivae normal Neck supple, no JVD, thyroid normal and no carotid bruits General: trachea midline Resp normal respiratory effort, no retractions, no use of accessory muscles and clear to auscultation bilaterally Auscultation: Negative for rales, rhonchi or wheezes Cardio regular rate, regular rhythm, S1 normal heart sound, S2 normal heart sound, no murmurs, no rub and no gallops GI normal to inspection, nondistended, normoactive bowel sounds, soft to palpation, non-tender and non-distended Extremity no clubbing, cyanosis or edema Skin no rashes or lesions noted General Skin Exam: no breakdown Neuro CN's II-XII intact bilaterally, moves all extremities and no focal motor deficits Neuro Narrative: Patient is lethargic, he does respond to verbal and tactile stimulation, he is confused Psych Psych Narrative: Patient is confused Assessment & Plan Assessment/Plan (1) Encephalopathy: PLAN: Plan 1. Acute encephalopathy-etiology unclear at this point, supportive care will be given and the patient will be reevaluated tomorrow, he shows no sign of an infection at this time, MRI of the brain did not show any evidence of stroke. #2 type 2 diabetes-blood sugar will be monitored, sliding scale insulin will be given as needed #3 seizure disorder-patient will remain on Keppra #4 chronic depression-patient will remain on his home medications #5 essential hypertension-patient will remain on his home medication #6 obstructive sleep apnea-patient's CPAP machine is here for use in the hospital Total clinical time spent by myself addressing the patient's medical issues, reviewing all of his data, and collaborating with patient's care team: 35 minutes Charges/Coding Visit Charges Inpatient E&M: 97818 Subs Hosp L2
[2023-06-30] MEDS: 0.9% Normal Saline 1,000 ML 100 ML IV (20:41)
[2023-06-30] MEDS: OLANZapine 2.5 MG Tablet PO (22:40)
[2023-06-30] MEDS: Atorvastatin Calcium 80 MG Tablet PO (22:41)
[2023-06-30] MEDS: Psyllium 1 PACKET PO (22:41)
[2023-06-30 23:07] LABS: Bedside Glucose 116 mg/dL (74-106)
[2023-07-01] VITALS (12 sets, daily range): BP systolic 102–145; BP diastolic 56–85; PULSE 69–83; RESP 16–18; TEMP 36–36.7; O2SAT 86–98; BMI 41.5; BMI 41.7
[2023-07-01] MEDS: 0.9% Normal Saline 1,000 ML 100 ML IV ×2 (05:03→15:11)
[2023-07-01 06:19] LABS: Absolute Lymphocyte Count 1.34 X10^3/uL (0.83-4.51); Absolute Neutrophil Count 7.1 X10^3/uL (2.0-7.7); Basophil# 0.04 X10^3/uL; Basophil% 0.4 % (0-1); Eosinophil# 0.06 X10^3/uL; Eosinophils% 0.6 % (0-5); Hematocrit 34.8 % (40-54); Hemoglobin 11.4 g/dL (13.0-16.5); Lymphocyte # 1.34 X10^3/ul (0.83-4.51); Lymphocyte % 14.4 % (19-41); Mean Corp Hgb Conc 32.8 g/dL (32-36); Mean Corpuscular Hgb 32.1 pg (27.0-32.0); Monocyte# 0.72 X10^3/uL; Monocyte% 7.7 % (0-10); NRBC Flagged by Analyzer 0 % (0-5); Neutrophil # 7.13 X10^3/uL (2.7-7.7); Neutrophil % 76.6 % (47-70); Platelet Count 116 K/mm3 (150-450); RBC Distribution Width CV 14.3 % (11.6-14.6); RBC Distribution Width SD 51.6 fl (35.1-43.9); Red Blood Count 3.55 M/mm3 (4.6-6.2); White Blood Count 9.3 K/mm3 (4.4-11.0)
[2023-07-01 07:09] LABS: ALB/GLOB Ratio 0.8 RATIO (0.9-2.4); AST(SGOT) 21 U/L (15-37); Alanine Aminotransfer ALT/SGPT 14 U/L (16-61); Albumin, Serum 3.1 g/dL (3.2-5.0); Alkaline Phosphatase 134 U/L (45-117); Anion Gap 5 (5-15); BUN 44 mg/dL (7-18); BUN/Creat Ratio 20.8 RATIO (10-20); Chloride 109 mmol/L (98-107); Creatinine, Serum 2.12 mg/dL (0.70-1.30); EST Glomerular Filtration Rate 32 mL/min (>60); Est Glom Filt Rate - Afr Amer 39 mL/min (>60); Estimated Creatinine Clearance 23.37 ml/min; Globulin 4.1 g/dL (2.2-4.2); Glucose 129 mg/dL (74-106); Potassium 4.4 mmol/L (3.5-5.1); Protein, Total 7.2 g/dL (6.4-8.2); Sodium Level 139 mmol/L (136-145)
[2023-07-01 08:55] LABS: Bedside Glucose 118 mg/dL (74-106)
[2023-07-01] MEDS: Aspirin E.C. 81 MG Tablet PO (10:30)
[2023-07-01] MEDS: Sertraline 50 MG Tablet 25 MG PO (10:30)
[2023-07-01] MEDS: Multivitamins,Therapeutic Tablet 1 TABLET PO (10:31)
[2023-07-01] MEDS: Cholecalciferol (VIT D3) 25 MCG TABLET (1,000 UNITS) PO (10:31)
[2023-07-01] MEDS: Isosorbide Mononitrate 30 MG Tablet PO (10:31)
[2023-07-01] MEDS: Famotidine 20 MG Tablet PO (10:32)
[2023-07-01] MEDS: Calcitriol 0.25 MCG Capsule 0.5 MCG PO (10:32)
[2023-07-01] MEDS: APIXABAN 2.5 MG TABLET (WCH) PO ×2 (10:32→21:10)
[2023-07-01] MEDS: levETIRAcetam 250 MG Tablet PO ×2 (10:33→21:10)
[2023-07-01] MEDS: Allopurinol 100 MG Tablet 150 MG PO (10:33)
[2023-07-01] MEDS: Psyllium 1 PACKET PO ×2 (10:34→21:10)
--- NOTE | 2023-07-01 11:33 | CASEMGMT ---
Patient did not do well with therapy today or yesterday. ERICA spoke with patient's granddaughter Maria Luisa whom patient lives with. Maria Luisa said she works manufacturing shift supervisor and if patient cannot do things on his own she cannot take him home right away. SW provided Maria Luisa with a list of intermediate facility providers including quality and resource use data and consistent with patient?s preferred geographic region, medical needs, and insurance network were provided from the [facility] Guide. SW asked Maria Luisa to pick a few facilities and SW will check on availability. Brittny Alonso STATE ARCHIVIST ERIKA
--- NOTE | 2023-07-01 12:05 | CASEMGMT ---
SW spoke with patient's granddaughter Maria Luisa and she would like [facility] for patient. SW let her know SW will make a referral and let her know. SW made a referral to [facility]. Brittny JAMES
[2023-07-01 12:09] LABS: Bedside Glucose 153 mg/dL (74-106)
--- NOTE | 2023-07-01 13:37 | CASEMGMT ---
TCU can take patient. let patient's granddaughter Maria Luisa know this information as well as RN. Plan: [facility] Brittny JAMES
--- NOTE | 2023-07-01 16:55 | PCM.PN.HOSP ---
Reason for Visit Reason for Visit: Diagnoses Transient cerebral ischemic attack, unspecified (06/30/23) Encephalopathy, unspecified (06/30/23) Subjective Subjective Was seen and examined today, his labs do not indicate an infection, his chemistry panel is improving. He still remains confused however, earlier today he was able to attempt to feed himself. I talked with the granddaughter who was in the room at the time my examination, patient will need to go to an extended care facility for rehab services upon discharge from the hospital. Objective Data Objective Data Vital Signs: Vital Signs Temp Pulse Resp BP Pulse Ox O2 Del Method O2 Flow Rate 97.9 F 69 18 107/69 98 Nasal Cannula 4.5 07/01/23 15:00 07/01/23 15:00 07/01/23 15:00 07/01/23 15:00 07/01/23 15:00 07/01/23 15:13 07/01/23 15:13 Oxygen Flow Rate (L/min) 4.5 Oxygen Delivery Method Nasal Cannula Weight: 113.7 kg Body Mass Index (BMI) 41.7 Intake & Output: Intake and Output for Last 24 Hours 06/29/23 06/30/23 07/01/23 23:59 23:59 23:59 Intake Total 120 / 120 1190 / 1190 1955.67 / 1955. Output Total 100 / 100 0 / 0 Balance 20 / 20 1190 / 1190 1955. / Lab / Micro Data 07/01/23 05:14 07/01/23 05:14 Labs: Laboratory Results - last 24 hr 06/30/23 17:01: POC Glucose 140 H 06/30/23 22:37: POC Glucose 116 H 07/01/23 05:14: WBC 9.3, RBC 3.55 L, Hgb 11.4 L, Hct 34.8 L, MCV 98.0 H, MCH 32.1 H, MCHC 32.8, RDW Std Deviation 51.6 H, RDW Coeff of Yeny 14.3, Plt Count 116 L, MPV 11.0, Immature Gran % (Auto) 0.300, Neut % (Auto) 76.6 H, Lymph % (Auto) 14.4 L, [place] % (Auto) 7.7, Eos % (Auto) 0.6, Baso % (Auto) 0.4, Absolute Neuts (auto) 7.1, Absolute Lymphs (auto) 1.34, Nucleated RBC % 0, Sodium 139, Potassium 4.4, Chloride 109 H, Carbon Dioxide 25.0, Anion Gap 5, BUN 44 H, Creatinine 2.12 H, Estim Creat Clear Calc 23.37, Est GFR (MDRD) Af Amer 39 L, Est GFR (MDRD) Non-Af 32 L, BUN/Creatinine Ratio 20.8 H, Glucose 129 H, Calcium 9.0, Total Bilirubin 1.50 H, AST 21, ALT 14 L, Alkaline Phosphatase 134 H, Total Protein 7.2, Albumin 3.1 L, Globulin 4.1, Albumin/Globulin Ratio 0.8 L 07/01/23 08:27: POC Glucose 118 H 07/01/23 11:47: POC Glucose 153 H Rhythm Strip Rhythm Strip: A-fib Rate: 43 Ectopy: None Physical Exam Narrative Patient is morbidly obese Const Constitutional Narrative: Patient is lethargic, he does awaken to verbal stimuli and tactile stimuli, he does not carry on a conversation, he appears confused General Appearance: cooperative, well kempt and well developed HEENT normocephalic, head/scalp atraumatic and moist oral mucous membranes Eyes PERRL, EOMs intact bilaterally and conjunctivae normal Neck supple, no JVD, thyroid normal and no carotid bruits General: trachea midline Resp normal respiratory effort, no retractions, no use of accessory muscles and clear to auscultation bilaterally Auscultation: Negative for rales, rhonchi or wheezes Cardio regular rate, regular rhythm, S1 normal heart sound, S2 normal heart sound, no murmurs, no rub and no gallops GI normal to inspection, nondistended, normoactive bowel sounds, soft to palpation, non-tender and non-distended Extremity no clubbing, cyanosis or edema Skin no rashes or lesions noted General Skin Exam: no breakdown Neuro CN's II-XII intact bilaterally, moves all extremities and no focal motor deficits Neuro Narrative: Patient is lethargic, he does respond to verbal and tactile stimulation, he is confused Psych Psych Narrative: Patient is confused Assessment & Plan Assessment/Plan (1) Encephalopathy: PLAN: Plan 1. Acute encephalopathy-etiology unclear at this point, supportive care will be given and the patient will be reevaluated tomorrow, he shows no sign of an infection at this time, MRI of the brain did not show any evidence of stroke. Patient will continue to be seen by PT and OT, he will most likely need temporary placement in a assisted facility. #2 type 2 diabetes-blood sugar will be monitored, sliding scale insulin will be given as needed #3 seizure disorder-patient will remain on Keppra #4 chronic depression-patient will remain on his home medications #5 essential hypertension-patient will remain on his home medication #6 obstructive sleep apnea-patient's CPAP machine is here for use in the hospital Total clinical time spent by myself addressing the patient's medical issues, reviewing all of his data, and collaborating with patient's care team: 35 minutes Charges/Coding Visit Charges Inpatient E&M: 61213 Subs Hosp L2
[2023-07-01 17:15] LABS: Bedside Glucose 137 mg/dL (74-106)
[2023-07-01] MEDS: Insulin NPH Human 100 UNITS/ML PEN 20 UNITS SC (21:08)
[2023-07-01] MEDS: Atorvastatin Calcium 80 MG Tablet PO (21:10)
[2023-07-01] MEDS: OLANZapine 2.5 MG Tablet PO (21:10)
[2023-07-01 21:40] LABS: Bedside Glucose 160 mg/dL (74-106)
[2023-07-02] MEDS: 0.9% Normal Saline 1,000 ML 100 ML IV ×3 (01:19→21:07)
[2023-07-02 02:11] VITALS: BMI 41.7
[2023-07-02 02:12] VITALS: BMI 41.7
[2023-07-02 03:00] VITALS: BP 146/76; PULSE 62; RESP 16; TEMP 36.4; O2SAT 93
[2023-07-02 04:00] VITALS: BMI 41.7
[2023-07-02 07:35] LABS: Bedside Glucose 131 mg/dL (74-106)
[2023-07-02 09:00] VITALS: BP 149/68; PULSE 67; RESP 17; TEMP 36.4; O2SAT 95
[2023-07-02] MEDS: Famotidine 20 MG Tablet PO (09:12)
[2023-07-02] MEDS: Cholecalciferol (VIT D3) 25 MCG TABLET (1,000 UNITS) PO (09:12)
[2023-07-02] MEDS: Sertraline 50 MG Tablet 25 MG PO (09:12)
[2023-07-02] MEDS: Multivitamins,Therapeutic Tablet 1 TABLET PO (09:13)
[2023-07-02] MEDS: APIXABAN 2.5 MG TABLET (WCH) PO ×2 (09:13→21:08)
[2023-07-02] MEDS: Allopurinol 100 MG Tablet 150 MG PO (09:13)
[2023-07-02] MEDS: levETIRAcetam 250 MG Tablet PO ×2 (09:13→12:44)
[2023-07-02] MEDS: Aspirin E.C. 81 MG Tablet PO (09:13)
[2023-07-02] MEDS: Isosorbide Mononitrate 30 MG Tablet PO (09:13)
[2023-07-02] MEDS: Psyllium 1 PACKET PO ×2 (09:14→21:08)
[2023-07-02] MEDS: Insulin NPH Human 100 UNITS/ML PEN 20 UNITS SC (09:16)
--- NOTE | 2023-07-02 09:54 | PN.HOSP_ITS ---
Reason for Visit Reason for Visit: Diagnoses Transient cerebral ischemic attack, unspecified (06/30/23) Encephalopathy, unspecified (06/30/23) Subjective Subjective Was seen and examined today, he was able to carry on a conversation with me and he appears more alert. Patient remains afebrile. Objective Data Objective Data Vital Signs: Vital Signs Temp Pulse Resp BP Pulse Ox O2 Del Method O2 Flow Rate 97.6 F L 67 17 149/68 H 95 Nasal Cannula 5 07/02/23 09:00 07/02/23 09:00 07/02/23 09:00 07/02/23 09:00 07/02/23 09:00 07/02/23 09:00 07/02/23 09:00 Oxygen Flow Rate (L/min) 5 Oxygen Delivery Method Nasal Cannula Weight: 113.8 kg Body Mass Index (BMI) 41.7 Intake & Output: Intake and Output for Last 24 Hours 06/30/23 07/01/23 07/02/23 23:59 23:59 23:59 Intake Total 1190 / 1190 2076.67 / 2256.67 1180 / 1180 Output Total 0 / 0 200 / 200 Balance 1190 / 1190 2076.67 / 2256.67 980 / 980 Lab / Micro Data 07/01/23 05:14 07/01/23 05:14 Labs: Laboratory Results - last 24 hr 07/01/23 11:47: POC Glucose 153 H 07/01/23 16:54: POC Glucose 137 H 07/01/23 21:07: POC Glucose 160 H 07/02/23 07:18: POC Glucose 131 H Rhythm Strip Rhythm Strip: A-fib Rate: 43 Ectopy: None Physical Exam Const alert, oriented x3, no apparent distress and healthy appearing General Appearance: cooperative, well kempt and well developed Orientation / Consciousness: awake, oriented to person and oriented to place HEENT normocephalic, head/scalp atraumatic and moist oral mucous membranes Eyes PERRL, EOMs intact bilaterally and conjunctivae normal Neck supple, no JVD, thyroid normal and no carotid bruits General: trachea midline Resp normal respiratory effort, no retractions, no use of accessory muscles and clear to auscultation bilaterally Auscultation: Negative for rales, rhonchi or wheezes Cardio regular rate, regular rhythm, S1 normal heart sound, S2 normal heart sound, no murmurs, no rub and no gallops GI normal to inspection, nondistended, normoactive bowel sounds, soft to palpation, non-tender and non-distended Extremity no clubbing, cyanosis or edema Skin no rashes or lesions noted General Skin Exam: no breakdown Neuro CN's II-XII intact bilaterally, moves all extremities, no focal motor deficits and no sensory deficits noted Sensorium / Orientation: awake, alert, oriented to person and oriented to place Speech: speech normal Psych affect normal Assessment & Plan Assessment/Plan (1) Encephalopathy: PLAN: Plan 1. Acute encephalopathy-etiology unclear at this point, this appears to be improving, this examiner wonders whether the patient had a seizure at home and he was postictal. PT and OT will continue to work with the patient, he will need short-term placement in the senior living facility for rehab services. #2 type 2 diabetes-blood sugar will be monitored, sliding scale insulin will be given as needed #3 seizure disorder-patient will remain on Keppra, I have decided to increase his dose of Keppra to 500 mg twice a day #4 chronic depression-patient will remain on his home medications #5 essential hypertension-patient will remain on his home medication #6 obstructive sleep apnea-patient's CPAP machine is here for use in the hospital Total clinical time spent by myself addressing the patient's medical issues, reviewing all of his data, and collaborating with patient's care team: 35 minutes Charges/Coding Visit Charges Inpatient E&M: 75654 Subs Hosp L2
[2023-07-02 11:55] VITALS: BMI 41.7
[2023-07-02 12:50] VITALS: BMI 41.7
[2023-07-02 15:25] VITALS: BP 136/86; PULSE 69; RESP 16; TEMP 36.6; O2SAT 97
[2023-07-02 17:08] LABS: Bedside Glucose 145 mg/dL (74-106)
[2023-07-02] MEDS: Glucerna Shake 120 ML LIQUID PO (17:23)
[2023-07-02] MEDS: Insulin Lispro 100 UNIT/ML INSULN.PEN 25 UNIT SC (17:24)
[2023-07-02 20:57] VITALS: BP 120/69; PULSE 75; RESP 18; TEMP 36.1; O2SAT 98
[2023-07-02] MEDS: 0.9% Saline Lock 10 ML Syringe IV (21:07)
[2023-07-02] MEDS: levETIRAcetam 500 MG Tablet PO (21:08)
[2023-07-02] MEDS: Atorvastatin Calcium 80 MG Tablet PO (21:08)
[2023-07-02] MEDS: OLANZapine 2.5 MG Tablet PO (21:08)
[2023-07-02 23:03] LABS: Bedside Glucose 90 mg/dL (74-106)
[2023-07-03 00:50] VITALS: BMI 41.7
[2023-07-03 03:23] VITALS: BP 137/54; PULSE 73; RESP 16; TEMP 36.3; O2SAT 95
[2023-07-03 04:47] VITALS: BMI 44.1
[2023-07-03] MEDS: 0.9% Normal Saline 1,000 ML 100 ML IV (06:50)
[2023-07-03 08:13] LABS: Bedside Glucose 123 mg/dL (74-106)
[2023-07-03 08:37] VITALS: BP 157/75; PULSE 60; RESP 17; TEMP 36.6; O2SAT 98
[2023-07-03] MEDS: Glucerna Shake 120 ML LIQUID PO (09:06)
[2023-07-03] MEDS: Aspirin E.C. 81 MG Tablet PO (09:06)
[2023-07-03] MEDS: Psyllium 1 PACKET PO (09:06)
[2023-07-03] MEDS: APIXABAN 2.5 MG TABLET (WCH) PO (09:06)
[2023-07-03] MEDS: levETIRAcetam 500 MG Tablet PO (09:06)
[2023-07-03] MEDS: Famotidine 20 MG Tablet PO (09:07)
[2023-07-03] MEDS: Allopurinol 100 MG Tablet 150 MG PO (09:07)
[2023-07-03] MEDS: Multivitamins,Therapeutic Tablet 1 TABLET PO (09:07)
[2023-07-03] MEDS: Cholecalciferol (VIT D3) 25 MCG TABLET (1,000 UNITS) PO (09:09)
[2023-07-03] MEDS: Sertraline 50 MG Tablet 25 MG PO (09:09)
[2023-07-03] MEDS: Isosorbide Mononitrate 30 MG Tablet PO (09:09)
--- NOTE | 2023-07-03 10:45 | TREXTCAR_ITS ---
Diet Diet Order/Speech Therapy: 07/03/23 09:19 Diet: 2000 jade ADA Food consistency:: Soft & Bite Sized Liquid Consistency:: Regular/Thin Is pt able to select menu?: No Diet Comments: Distant supervision, meds whole in , alt. bites/sips Routine Orders/Code Status O2 Liters per Minute: 4 O2 Frequency: Continuous Keep PO Greater than or Equal to (%): 90 Routine Lab Work: - (Fingerstick blood sugar AC nightly, sliding scale Humalog subcu per scale: 200-250: 5 units, 251-300: 8 units, 301-350: 12 units) Code Status: Full Code Wound(s) Left calf: Wound Type: Abrasion Therapies Weight Bearing: Full weight bearing Physical Therapy: Eval and Treat Occupational Therapy: Eval and Treat Problem/Diagnosis (1) Encephalopathy: Status: Acute Code(s): G93.40 - Encephalopathy, unspecified Plan 1. 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 Total clinical time spent by myself addressing the patient's medical issues, reviewing all of his data, and collaborating with patient's care team: 35 minutes Allergies/Procedures Done in Hospital Allergies Penicillins [PCN] Allergy (Verified 01/31/23 15:29) Swelling Procedures: 2-D Echocardiogram Type of Care/Length of Stay Estimated LOS: Convalescent Care Less Than 30 days Type of Care Needed: Skilled Rehab Potential: Good Prognosis: Good Additional Orders/Day of Discharge H&P will serve as current which was dated: 06/29/23 Day of Discharge: 07/03/23 Dietary and Speech Recommendations Dietitian Recommendations/Changes: Continue diet as ordered - consistency per PUBLIC ADMINISTRATION TEACHER Will order 4 oz glucerna shake tid w/ medpass d/t poor po intake since in hospital Continue to monitor for changes in pt nutritional status and make additional rec as indicated Speech Linguistic Eval Summary: Patient laying in bed, difficult to arouse. Required constant verbal and tactile cueing to participate in conversation w/ PUBLIC ADMINISTRATION TEACHER. Frequently closing eyes, lethargic. Granddaughter present for cognitive- linguistic evaluation. Granddaughter reports patient does have some cognitive impairment as baseline, he does not typically know their address, [place], etc. Granddaughter attributes this to age related decline however, PUBLIC ADMINISTRATION TEACHER suspects dementia at baseline. Granddaughter does live w/ patient. Orientation - Oriented to name, month and date of birthday only. Disoriented to year of , current month, current year and place despite choice array of 2. Patient reporting it is Jul 1964 and he is at [facility]. Unable to recall any personal details. Verbal expression - Very difficult to understand, slurred speech (50% intelligible w/ unknown context). Granddaughter reports worsening dysarthria compared to baseline. Patient does have upper/lower dentures that he sometimes uses when he eats. Auditory comprehension - Difficult to understand task, unable to determine if d/t lethargy or exacerbation of cognitive impairment. PUBLIC ADMINISTRATION TEACHER discontinued cognitive-linguistic assessment d/t lethargy, will continue w/ assessment in subsequent sessions. Discharge Plan Admission Admit Date/Time: 06/30/23 17:01 Primary Reason for Your Visit: Acute encephalopathy-believed to be postictal Attending Provider: Woody Brunson Primary Care Provider: Rios Downey Consulting Providers: Rigoberto Ashley Instructions Additional Instructions / Restrictions: Patient is to use his own CPAP machine while sleeping Discharge Orders/Prescriptions Prescriptions: New levetiracetam 500 mg Tablet 500 mg PO BID Qty: 0 0RF Daily Fiber (psyllium-aspart) 3 gram Powder In Packet 1 packet PO BID Qty: 0 0RF furosemide [Lasix] 40 mg tablet 40 mg PO QODAY Qty: 1 0RF potassium chloride 20 mEq tablet extended release 20 meq PO DAILY Qty: 1 0RF Continued famotidine 20 mg tablet 20 mg PO DAILY olanzapine 2.5 mg tablet 2.5 mg PO QHS Eliquis 2.5 mg tablet 2.5 mg PO BID atorvastatin 40 MG tablet 40 mg PO QHS aspirin 81 MG tablet,delayed release (DR/EC) 81 mg PO DAILY Patient Comments: multivitamin 1 EACH tablet 1 ea PO DAILY insulin regular human 100 UNIT/ML solution 25 unit SC BID Patient Comments: afternoon and night insulin NPH isoph U-100 human 100 unit/mL suspension 25 unit SC BID cholecalciferol (vitamin D3) 1,000 UNIT tablet 25 mcg PO DAILY sertraline 25 MG tablet 25 mg PO DAILY calcitriol 0.25 mcg capsule 0.5 mcg PO MOWEFR allopurinol 300 mg tablet 150 mg PO DAILY isosorbide mononitrate 30 mg tablet extended release 24 hr 30 mg PO DAILY Qty: 90 4RF Discontinued levetiracetam 500 mg tablet 250 mg PO BID metoprolol tartrate 25 MG tablet 12.5 mg PO BID psyllium husk 0.4 gram capsule 0.4 g PO BID furosemide 40 mg tablet 40 - 80 mg PO DAILY Qty: 180 3RF Rx Instructions: TAKES ONE OR TWO DAILY, BASED ON WEIGHT Referrals / Follow Up: Rios Downey DO [Primary Care Provider] - Disposition Disposition (needs filled in before D/C Order can be placed): Intermediate Facility
--- NOTE | 2023-07-03 11:01 | PCM.DC.SUM ---
Providers Date of Admission: 06/30/23 Date of Discharge: 07/03/23 Primary Care Physician: Dr. Rios Downey DO Reason For Visit: TIA Diagnosis Discharge Diagnosis (1) Encephalopathy: Status: Acute Code(s): G93.40 - Encephalopathy, unspecified Plan 1. 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 TIA was ruled out Total clinical time spent by myself addressing the patient's medical issues, reviewing all of his data, and collaborating with patient's care team: 35 minutes Medications at Discharge Home Medications aspirin 81 mg tablet,delayed release 81 mg PO DAILY HEART HEALTH 07/11/16 atorvastatin 40 mg tablet 40 mg PO QHS CHOLSTEROL 07/11/16 multivitamin 1 ea PO DAILY HEALTH MAINTENANCE 07/11/16 insulin regular human 100 unit/mL injection solution 25 unit subcut BID DIABETES 07/24/16 cholecalciferol (vitamin D3) 25 mcg (1,000 unit) tablet 25 mcg PO DAILY SUPPLEMENT 10/26/16 sertraline 25 mg tablet 25 mg PO DAILY DEPRESSION 01/10/18 insulin NPH isoph U-100 human 100 unit/mL subcutaneous suspension 25 unit subcut BID DIABETES 03/08/18 famotidine 20 mg tablet 20 mg PO DAILY GERD 11/13/19 olanzapine 2.5 mg tablet 2.5 mg PO QHS DEPRESSION 11/13/19 allopurinol 300 mg tablet 150 mg PO DAILY GOUT 12/07/21 apixaban 2.5 mg tablet (Eliquis) 2.5 mg PO BID BLOOD THINNER 10/07/22 calcitriol 0.25 mcg capsule 0.5 mcg PO MOWEFR SUPPLEMENT 10/07/22 isosorbide mononitrate 30 mg tablet,extended release 24 hr 30 mg PO DAILY HEART #90 tabs 02/01/23 furosemide 40 mg tablet (Lasix) 40 mg PO QODAY #1 TAB 07/03/23 levetiracetam 500 mg tablet 500 mg PO BID #0 tabs 07/03/23 potassium chloride 20 mEq tablet,extended release 20 meq PO DAILY #1 TAB 07/03/23 psyllium husk (aspartame) 3 gram oral powder packet (Daily Fiber (psyllium-aspartame)) 1 packet PO BID #0 ea 07/03/23 Hospital Course Operations None Procedures 2-D Echocardiogram Summary of Care Provided Minutes Spent on Discharge: 31 Hospital Course: This 83-year-old white male was seen in the emergency room at [facility] after being brought in from home for concern of increased confusion and garbled speech. Patient lives with his granddaughter, she states that he is forgetful at times, when she got home from work he was sleeping in the chair and seemed confused he was not able to give her the right time and he was acting out of character. She went to bed and awoke later on the morning and when she woke him up at that time he appeared to be normal but he did not follow her out of the room and appeared confused again. She noticed he was slurring her words and she could not understand what he was saying, 911 was called and EMS reported the patient was having expressive aphasia and slurred speech as well as some generalized confusion. Stroke alert was called in the field, patient was brought to the emergency room at [facility] and underwent a CT of the brain which showed no acute bleed or process, patient's NIH score was 1, patient's CBC was unremarkable, venous blood gas was obtained and the patient was not acidotic. EKG revealed atrial fibrillation with a slow ventricular response. Patient was admitted to PCU for possible stroke, he underwent an MRI which showed no evidence of stroke, he remained lethargic for the next 48 hours, and then the patient's mentation improved. Granddaughter stated the patient had a history of seizure disorder in the past, this examiner questioned whether the patient could have had an unwitnessed seizure and was postictal. Patient was seen by PT and OT, it was felt that he would benefit from a short stay in an inpatient [place] [facility] facility, TCU was contacted and accepted the patient. On 07/03/2023, patient was seen and examined: On examination he appeared in good health and spirits. Vital signs as documented. Skin warm and dry and without overt rashes. Neck without JVD, neck was supple, trachea midline, thyroid was normal. Lungs clear bilaterally, normal air movement was noted. Heart exam notable for regular rhythm, normal sounds and absence of murmurs, rubs or gallops. Abdomen unremarkable and without evidence of organomegaly, masses, or abdominal aortic enlargement. Bowel sounds are present, abdomen is not distended. Extremities nonedematous, no cyanosis was noted, no clubbing was noted. Neuro: Cranial nerves II through XII are grossly intact, no focal motor deficits were noted, sensation to light touch and pinprick intact, motor exam 5/5 throughout. Psych: Patient is alert and oriented x3, he does not appear anxious or depressed, he does not appear agitated. Patient was transferred to TCU for short-term inpatient skilled care on 07/03/2023 in stable condition. Weight / BMI Weight Weight: 120.4 kg Body Mass Index (BMI) 44.1 ABG / Lab / Microbiology Data 07/01/23 05:14 07/01/23 05:14 Laboratory: Laboratory Results - last 24 hr 07/02/23 16:50: POC Glucose 145 H 07/02/23 21:14: POC Glucose 90 07/03/23 07:54: POC Glucose 123 H Meaningful Use Info Meaningful Use Diagnoses (Choose all that apply): None applicable Discharge Plan Admission Admit Date/Time: 06/30/23 17:01 Primary Reason for Your Visit: Acute encephalopathy-believed to be postictal Attending Provider: Woody Brunson Primary Care Provider: Rios Downey Consulting Providers: Rigoberto Ashley Instructions Additional Instructions / Restrictions: Patient is to use his own CPAP machine while sleeping Discharge Orders/Prescriptions Prescriptions: New levetiracetam 500 mg Tablet 500 mg PO BID Qty: 0 0RF Daily Fiber (psyllium-aspart) 3 gram Powder In Packet 1 packet PO BID Qty: 0 0RF furosemide [Lasix] 40 mg tablet 40 mg PO QODAY Qty: 1 0RF potassium chloride 20 mEq tablet extended release 20 meq PO DAILY Qty: 1 0RF Continued famotidine 20 mg tablet 20 mg PO DAILY olanzapine 2.5 mg tablet 2.5 mg PO QHS Eliquis 2.5 mg tablet 2.5 mg PO BID atorvastatin 40 MG tablet 40 mg PO QHS aspirin 81 MG tablet,delayed release (DR/EC) 81 mg PO DAILY Patient Comments: multivitamin 1 EACH tablet 1 ea PO DAILY insulin regular human 100 UNIT/ML solution 25 unit SC BID Patient Comments: afternoon and night insulin NPH isoph U-100 human 100 unit/mL suspension 25 unit SC BID cholecalciferol (vitamin D3) 1,000 UNIT tablet 25 mcg PO DAILY sertraline 25 MG tablet 25 mg PO DAILY calcitriol 0.25 mcg capsule 0.5 mcg PO MOWEFR allopurinol 300 mg tablet 150 mg PO DAILY isosorbide mononitrate 30 mg tablet extended release 24 hr 30 mg PO DAILY Qty: 90 4RF Discontinued levetiracetam 500 mg tablet 250 mg PO BID metoprolol tartrate 25 MG tablet 12.5 mg PO BID psyllium husk 0.4 gram capsule 0.4 g PO BID furosemide 40 mg tablet 40 - 80 mg PO DAILY Qty: 180 3RF Rx Instructions: TAKES ONE OR TWO DAILY, BASED ON WEIGHT Referrals / Follow Up: Rios Downey DO [Primary Care Provider] - Disposition Disposition (needs filled in before D/C Order can be placed): Nursing Home Facility Charges/Coding Visit Charges Inpatient E&M: 09144 Disch Hosp >30min
[2023-07-03 11:50] LABS: Bedside Glucose 180 mg/dL (74-106)
[2023-07-03 12:00] VITALS: BMI 44.1
--- NOTE | 2023-07-03 13:26 | NURSING ---
Report called to TCU. Pt going to room 22
== END 2023-07-03 13:36 | disposition skilled nursing facility (03) | DRG 100 ==
LOC: ED 14:05 → PCU 14:47
PROVIDERS: Admitting Provider Internal Medicine; Emergency Provider Emergency Medicine; Visit Provider Internal Medicine
DX: G40.909 Epilepsy, unspecified, not intractable, without status epilepticus (principal); G93.41 Metabolic encephalopathy; I13.0 Hypertensive heart and chronic kidney disease with heart failure and stage 1 through stage 4 chronic kidney disease, or unspecified chronic kidney disease; E66.2 Morbid (severe) obesity with alveolar hypoventilation; J96.11 Chronic respiratory failure with hypoxia; I50.42 Chronic combined systolic (congestive) and diastolic (congestive) heart failure; N18.4 Chronic kidney disease, stage 4 (severe); Z68.41 Body mass index [BMI] 40.0-44.9, adult; E11.22 Type 2 diabetes mellitus with diabetic chronic kidney disease; I48.0 Paroxysmal atrial fibrillation; J44.9 Chronic obstructive pulmonary disease, unspecified; Z79.4 Long term (current) use of insulin; E78.5 Hyperlipidemia, unspecified; F32.A Depression, unspecified; I25.10 Atherosclerotic heart disease of native coronary artery without angina pectoris; Z95.1 Presence of aortocoronary bypass graft; Z95.4 Presence of other heart-valve replacement; Z99.81 Dependence on supplemental oxygen; Z99.89 Dependence on other enabling machines and devices; Z79.01 Long term (current) use of anticoagulants; Z79.82 Long term (current) use of aspirin; Z79.899 Other long term (current) drug therapy; Z86.73 Personal history of transient ischemic attack (TIA), and cerebral infarction without residual deficits; Z87.891 Personal history of nicotine dependence
CPT/HCPCS: 36415; 36600; 70450; 70551; 71045; 80048; 80053; 80061; 81001; 82140; 82803; 82962; 83036; 83735; 84100; 84443; 84484; 85025; 85610; 85730; 92523; 92526; 92610; 93005; 93306; 93880; 94668; 94762; 97110; 97162; 97166; 97530; 97535; 99285; J7030; Q9957; A4216; C8929

== ENCOUNTER 2023-07-03 13:45 | Inpatient (IN) | payer MEDICARE, OTHER, SELFPAY ==
[2023-07-03 14:37] VITALS: BP 158/91; PULSE 68; RESP 18; TEMP 36.8; O2SAT 98; BMI 44.6
[2023-07-03 16:37] VITALS: PULSE 68; RESP 18; O2SAT 98
[2023-07-03] MEDS: levETIRAcetam 500 MG Tablet PO (16:47)
[2023-07-03] MEDS: Psyllium 1 PACKET PO (16:47)
[2023-07-03] MEDS: APIXABAN 2.5 MG TABLET (WCH) PO (16:47)
[2023-07-03] MEDS: Nystatin Powder 15gm Bottle 1 APPLIC TOPICAL (16:58)
[2023-07-03] MEDS: Menthol/Lanolin/Calamine/Znox 113 GM Tube 1 APPLIC TOPICAL (16:58)
[2023-07-03 16:59] LABS: Bedside Glucose 139 mg/dL (74-106)
[2023-07-03 17:30] VITALS: BP 119/65; PULSE 72; RESP 20; TEMP 36; O2SAT 95
[2023-07-03] MEDS: Insulin Lispro 100 UNIT/ML INSULN.PEN 25 UNIT SC (18:18)
--- NOTE | 2023-07-03 18:23 | NURSING ---
1730 pt found on floor at BR door. pt had slid down wall to sitting position. abrasion noted to left back from sliding down wall. no other injury noted. pt was attempting to take self to BR without assistive device and not calling for assist. Dr graf updated. pt was incont of stool, incont care provided. x3 assist needed to standing position. alarms placed on chair and bed for safety. call light in reach.
--- NOTE | 2023-07-03 19:11 | NURSING ---
Addendum entered by Valerie Hogan 07/03/23 19:23: daughter returned call, update given Original Note: attempted to notify granddaughter with update, no answer. will try again later
--- NOTE | 2023-07-03 19:51 | NURSING ---
blood sugar 139 tonight, held NPH at 1800. pt was getting it at HS on acute side. humalog 25 units given as ordered. ic engineer notified in report.
--- NOTE | 2023-07-03 20:22 | HP.PCM_ITS ---
HPI - General General Date of Admission: 07/03/23 Date of Service: 07/04/23 Chief Complaint: Here for rehabilitation. HPI Narrative 06/29/2023 JODIE SILVERIO, is a 83 Male who presents to [facility] Emergency Department with stroke alert. 06/29/2023 EKG atrial fibrillation with slow ventricular response, left bundle branch block. Sometimes forgetful sleeping in chair, confused. Acting out of character, intermittent confusion, slurring words. Expressive aphasia, dysarthria, confusion. Symptoms improving, NIH 1, not TPA candidate. 06/29/2023 Admit to [facility]. PT/OT/ST, aspirin, atorvastatin for rule out stroke. 06/29/2023 Echo Normal LV size. EF 40%, PASP 44mm HG. Bubble study negative. 06/30/2023 Confused. MRI brain negative for stroke, ammonia level normal, ABG okay. Hallucinating, Ativan given last night. Etiology of confusion unclear. 07/01/2023 Confused, but able to feed himself. SNF recommended. PT/OT. 07/02/2023 More alert, able to carry conversation. Keppra increased to 500mg bid for seizure disorder. 07/03/2023 Admit to TCU with debility, here for rehabilitation, strengthening, prior to discharge home with granddaughter. [facility] Medical History Acute exacerbation of CHF (congestive heart failure) Acute on chronic diastolic (congestive) heart failure Acute respiratory failure with hypoxia Anemia Atherosclerosis of coronary artery bypass graft without angina pectoris Atherosclerosis of coronary artery of [place] heart without angina pectoris Atrial fibrillation with rapid ventricular response (07/11/16) Cholecystitis Chronic combined systolic and diastolic CHF (congestive heart failure) Chronic renal failure, stage 3 (moderate) Chronic respiratory failure with hypoxia COPD (chronic obstructive pulmonary disease) Essential (primary) hypertension Hyperlipemia Left bundle branch block Localized edema Lymphedema Morbid obesity with BMI of 45.0-49.9, adult Non-rheumatic aortic stenosis Obstructive sleep apnea Ocular migraine Paroxysmal atrial fibrillation Restrictive airway disease Right lower lobe pneumonia Sepsis TIA (transient ischemic attack) Type 2 diabetes mellitus without complications Venous insufficiency of both lower extremities Home Medications aspirin 81 mg tablet,delayed release 81 mg PO DAILY HEART HEALTH 07/11/16 [History Last Taken 07/03/23] atorvastatin 40 mg tablet 40 mg PO QHS CHOLSTEROL 07/11/16 [History Last Taken 01/29/20] multivitamin 1 ea PO DAILY HEALTH MAINTENANCE 07/11/16 [History Last Taken 07/03/23] insulin regular human 100 unit/mL injection solution 25 unit subcut BID DIABETES 07/24/16 [History Last Taken 07/02/23] cholecalciferol (vitamin D3) 25 mcg (1,000 unit) tablet 25 mcg PO DAILY SUPPLEMENT 10/26/16 [History Last Taken 07/03/23] sertraline 25 mg tablet 25 mg PO DAILY DEPRESSION 01/10/18 [History Last Taken 07/03/23] insulin NPH isoph U-100 human 100 unit/mL subcutaneous suspension 25 unit subcut BID DIABETES 03/08/18 [History Last Taken 07/03/23] famotidine 20 mg tablet 20 mg PO DAILY GERD 11/13/19 [History Last Taken 07/03/23] olanzapine 2.5 mg tablet 2.5 mg PO QHS DEPRESSION 11/13/19 [History Last Taken 07/02/23] allopurinol 300 mg tablet 150 mg PO DAILY GOUT 12/07/21 [History Last Taken 07/03/23] apixaban 2.5 mg tablet (Eliquis) 2.5 mg PO BID BLOOD THINNER 10/07/22 [History Last Taken 07/03/23] calcitriol 0.25 mcg capsule 0.5 mcg PO MOWEFR SUPPLEMENT 10/07/22 [History Last Taken 07/01/23] isosorbide mononitrate 30 mg tablet,extended release 24 hr 30 mg PO DAILY HEART #90 tabs 02/01/23 [Rx Last Taken 07/03/23] furosemide 40 mg tablet (Lasix) 40 mg PO QODAY water pill #1 TAB 07/03/23 [Rx Last Taken Unknown] levetiracetam 500 mg tablet 500 mg PO BID seizures #0 tabs 07/03/23 [Rx Last Taken Unknown] potassium chloride 20 mEq tablet,extended release 20 meq PO DAILY potassium #1 TAB 07/03/23 [Rx Last Taken Unknown] psyllium husk (aspartame) 3 gram oral powder packet (Daily Fiber (psyllium- aspartame)) 1 packet PO BID constipation #0 ea 07/03/23 [Rx Last Taken 07/03/23] Allergy/AdvReac Type Severity Reaction Status Date / Time Penicillins [PCN] Allergy Swelling Verified 01/31/23 15:29 Family History Father Myocardial infarction Mother CVA (cerebral vascular accident) Brother CAD (coronary artery disease) Diabetes Surgical History H/O aortic valve replacement (02/24/16) H/O coronary artery bypass surgery (02/24/16) Hx of cholecystectomy (01/13/17) Social History (Updated 07/03/23 @ 20:[address] Jeremy Magallanes MD) household members: family and other details: Granddaughter. Smoking Status: Unknown if ever smoked how long ago did patient quit smokin + years alcohol intake: never substance use type: does not use caffeine: Yes Type: carbonated beverages and tea ROS Constitutional Constitutional: Denies chills, fever(s) or weight gain ENT HEENT: Denies headache(s), nasal congestion or nasal discharge Cardiovascular Cardiovascular: Denies chest pain or palpitations Respiratory/Chest Respiratory/Chest: Denies cough, excessive phlegm production or shortness of breath with exertion Gastrointestinal Gastrointestinal: Denies abdominal pain, nausea or vomiting Genitourinary Genitourinary: Denies dysuria Musculoskeletal Musculoskeletal: Denies joint pain or joint swelling Integumentary Integumentary: Denies rash or wounds Neurologic Neurologic: Denies focal weakness, numbness or tingling Psychiatric Psychiatric: Denies anxiety, auditory hallucinations, depression, homicidal ideation or suicidal ideation Vital Signs Vital Signs Vital Signs: 07/03/23 14:37 07/03/23 16:37 07/03/23 17:30 Temperature 98.2 F 96.8 F L Temperature Source Temporal Temporal Pulse Rate 68 68 72 Pulse Rhythm Irregular Pulse Strength Normal (2+) Respiratory Rate 18 18 20 H Respiratory Effort Normal Respiratory Depth Normal Respiratory Pattern Normal Blood Pressure 158/91 H 119/65 Blood Pressure Mean 113 83 Blood Pressure Source Monitor Monitor Blood Pressure Position Semi-Fowlers Sitting Blood Pressure Location Left Arm Left Arm Pulse Ox 98 98 95 Oxygen Delivery Method Nasal Cannula Nasal Cannula Room Air Oxygen Flow Rate (L/min) 4 4 Weight Weight: 121.619 kg Body Mass Index (BMI) 44.6 Physical Exam Const alert General Appearance: cooperative HEENT normocephalic Eyes PERRL and EOMs intact bilaterally Neck supple, no JVD and no carotid bruits Resp normal respiratory effort, normal air movement and clear to auscultation bilaterally Cardio regular rate and regular rhythm GI normal to inspection, nondistended, normoactive bowel sounds, non-tender and non-distended Extremity normal capillary refill General Extremity: Negative for edema Skin no rashes or lesions noted General Skin Exam: no breakdown Psych affect normal Appearance: appropriate Results Lab / Micro Data 07/04/23 05:26 07/04/23 05:26 Labs: Laboratory Results - last 24 hr 07/03/23 16:41: POC Glucose 139 H Assessment & Plan Assessment/Plan (1) Debility: (2) Encephalopathy: (3) TIA (transient ischemic attack): (4) Dysarthria: (5) Expressive aphasia: (6) Aortic stenosis: (7) Hypertension: (8) Atrial fibrillation: (9) Obstructive sleep apnea: (10) Chronic respiratory failure: (11) Diabetes mellitus: (12) Depression: (13) GERD (gastroesophageal reflux disease): (14) Seizure disorder: (15) Coronary artery disease: PLAN: Plan 83 year old male with below past medical history hospitalized for encephalopath y, TIA, stroke ruled out, admitted to TCU with debility, here for rehabilitation, strengthening, prior to discharge home with granddaughter. * Debility - PT/OT. * Dysphagia - ST. * Pain - Tylenol 1000mg q6h prn pain (1-10). * Bowel - Metamucil 1 packet bid, Magnesium citrate 300ml po daily prn. * Adult immunization - Administer pneumonia vaccine, covid19 vaccine, flu vaccine as appropriate. * DVT prophylaxis - on Eliquis. * Gout - Allopurinol 150mg daily. * Atrial fibrillation - Eliquis 2.5mg bid. * Hyperlipidemia - Atorvastatin 40mg qhs. * Hyperparathyroidism - Calcitriol 0.5mg mwf. * GERD - Famotidine 20mg daily. * Edema - Furosemide 40mg every other day. * Diabetes Mellitus II - NPH 25 units bid. * Coronary artery disease - Imdur 30mg daily, Eliquis 2.5mg bid. * Seizure disorder - Keppra 500mg bid. * Skin irritation - Calmoseptine topical bid. * Nutrition - MVI daily. * Tinea Corporis - Nystatin powder topical bid. * Depression - Sertraline 25mg daily, Zyprexa 2.5mg qhs, stable chronic long ter m use, GDR not recommended. * Hypokalemia - KCL 20meq daily. * Vitamin D deficiency - D3 25mcg daily. * Acute anemia - Hemoglobin dropped from 11.4 to 9.2, monitor, check stool for blood, resident is on [facility].
[2023-07-03 20:33] VITALS: O2SAT 93
[2023-07-03] MEDS: Acetaminophen 500 MG Tablet 1000 MG PO (21:24)
[2023-07-03] MEDS: OLANZapine 2.5 MG Tablet PO (21:26)
[2023-07-03] MEDS: Atorvastatin Calcium 40 MG Tablet PO (21:26)
--- NOTE | 2023-07-03 21:32 | NURSING ---
notified of patient blood glucose level and order for Humalin N due at this time, per hold dose
[2023-07-03 21:50] LABS: Bedside Glucose 130 mg/dL (74-106)
[2023-07-03 22:00] VITALS: PULSE 78; RESP 16; O2SAT 98
[2023-07-04] MEDS: Menthol/Lanolin/Calamine/Znox 113 GM Tube 1 APPLIC TOPICAL (05:35)
[2023-07-04] MEDS: Nystatin Powder 15gm Bottle 1 APPLIC TOPICAL ×2 (05:35→18:01)
[2023-07-04] MEDS: Isosorbide Mononitrate 30 MG Tablet PO (05:36)
[2023-07-04] MEDS: Famotidine 20 MG Tablet PO (05:36)
[2023-07-04] MEDS: Cholecalciferol (VIT D3) 25 MCG TABLET (1,000 UNITS) PO (05:36)
[2023-07-04] MEDS: levETIRAcetam 500 MG Tablet PO ×2 (05:36→18:00)
[2023-07-04] MEDS: Calcitriol 0.25 MCG Capsule 0.5 MCG PO (05:37)
[2023-07-04] MEDS: APIXABAN 2.5 MG TABLET (WCH) PO ×2 (05:37→18:00)
[2023-07-04] MEDS: Sertraline 50 MG Tablet 25 MG PO (05:37)
[2023-07-04] MEDS: Psyllium 1 PACKET PO ×2 (05:37→18:00)
[2023-07-04 05:52] LABS: Absolute Neutrophil Count 5.2 X10^3/uL (2.0-7.7); Basophil# 0.04 X10^3/uL; Basophil% 0.5 % (0-1); Eosinophils% 3.7 % (0-5); Hematocrit 29.3 % (40-54); Hemoglobin 9.2 g/dL (13.0-16.5); Lymphocyte % 21.9 % (19-41); Mean Corp Hgb Conc 31.4 g/dL (32-36); Mean Corpuscular Hgb 31.6 pg (27.0-32.0); Mean Corpuscular Volume 100.7 fL (80-94); Mean Platelet Vol. 11.1 fl (6.2-12.0); Monocyte% 9.7 % (0-10); NRBC Flagged by Analyzer 0 % (0-5); Neutrophil # 5.23 X10^3/uL (2.7-7.7); Neutrophil % 63.7 % (47-70); Platelet Count 117 K/mm3 (150-450); RBC Distribution Width CV 14.3 % (11.6-14.6); RBC Distribution Width SD 51.9 fl (35.1-43.9); Red Blood Count 2.91 M/mm3 (4.6-6.2); White Blood Count 8.2 K/mm3 (4.4-11.0)
--- NOTE | 2023-07-04 06:00 | NURSING ---
Written communication left for Dr. Magallanes requesting insulin parameters
[2023-07-04 06:10] LABS: Anion Gap 4 (5-15); BUN 46 mg/dL (7-18); BUN/Creat Ratio 20.2 RATIO (10-20); Calcium,Total 7.7 mg/dL (8.5-10.1); Chloride 112 mmol/L (98-107); Creatinine, Serum 2.28 mg/dL (0.70-1.30); EST Glomerular Filtration Rate 29 mL/min (>60); Est Glom Filt Rate - Afr Amer 36 mL/min (>60); Estimated Creatinine Clearance 21.73 ml/min; Glucose 136 mg/dL (74-106); Potassium 4.4 mmol/L (3.5-5.1); Sodium Level 139 mmol/L (136-145)
[2023-07-04 06:24] LABS: Bedside Glucose 128 mg/dL (74-106)
--- NOTE | 2023-07-04 08:18 | NURSING ---
Pt disoriented multiple times throughout the shift. Completes unassisted transfers frequently. Frequently reoriented to person, place, and time. Personal and chair alarms and room camera in use. Will continue to monitor.
[2023-07-04] MEDS: Potassium Chloride Oral Tablet 20 MEQ PO (08:48)
[2023-07-04] MEDS: Multivitamins,Therapeutic Tablet 1 TABLET PO (08:50)
[2023-07-04] MEDS: Furosemide 40 MG Tablet PO (08:50)
[2023-07-04] MEDS: Insulin NPH Human 100 UNITS/ML PEN 25 UNITS SC ×2 (08:50→18:00)
[2023-07-04] MEDS: Allopurinol 300 MG Tablet 150 MG PO (08:50)
[2023-07-04] MEDS: Tuberculin,Purif.prot.deriv. 50 TU/ML Vial 0.1 ML ID (08:51)
[2023-07-04] MEDS: 0.9% Saline Lock 10 ML Syringe IV (08:53)
[2023-07-04 11:12] VITALS: BMI 44.4
[2023-07-04 11:28] LABS: Bedside Glucose 180 mg/dL (74-106)
--- NOTE | 2023-07-04 11:28 | CASEMGMT ---
Social Work Met with patient to complete initial assessment. Introduced self and role. Verified contacts. Discussed code status and MOLST form. Pt wishes to be full code and could express clearly his wishes, despite noted confusion. Nursing notified. MOLST placed in Dr folder. Educated to Medicare benefit. Pt's goal is to return home with gddtr assistance. SW will continue to follow for DC planning. SUMAYA BrittW
--- NOTE | 2023-07-04 13:16 | NURSING ---
Lens Blocker Note; Activity Asset: Kari Dietz is independent in his choice of daily activities. He has stated he really does not do much. While her is granddaughter will visit w/him and bring his items he may need or want. He will watch tv and welcomes visit from the supervisor tan room and therapy dog when available. Staff will remind him of daily activities and respect his right to say no.
[2023-07-04 15:24] VITALS: BP 132/44; PULSE 71; RESP 18; TEMP 35.9; O2SAT 96
[2023-07-04 17:07] LABS: Bedside Glucose 161 mg/dL (74-106)
[2023-07-04] MEDS: Acetaminophen 500 MG Tablet 1000 MG PO (19:48)
[2023-07-04] MEDS: OLANZapine 2.5 MG Tablet PO (19:49)
[2023-07-04] MEDS: Atorvastatin Calcium 40 MG Tablet PO (19:49)
[2023-07-04 19:55] VITALS: PULSE 61; RESP 18
[2023-07-04] MEDS: LORazepam 0.5 MG Tablet PO (21:14)
[2023-07-04 21:26] LABS: Bedside Glucose 203 mg/dL (74-106)
[2023-07-05] MEDS: Cholecalciferol (VIT D3) 25 MCG TABLET (1,000 UNITS) PO (05:04)
[2023-07-05] MEDS: Sertraline 50 MG Tablet 25 MG PO (05:04)
[2023-07-05] MEDS: APIXABAN 2.5 MG TABLET (WCH) PO ×2 (05:04→17:08)
[2023-07-05] MEDS: Famotidine 20 MG Tablet PO (05:04)
[2023-07-05] MEDS: levETIRAcetam 500 MG Tablet PO ×2 (05:04→17:08)
[2023-07-05] MEDS: Psyllium 1 PACKET PO ×2 (05:04→17:08)
[2023-07-05] MEDS: Isosorbide Mononitrate 30 MG Tablet PO (05:04)
[2023-07-05] MEDS: Menthol/Lanolin/Calamine/Znox 113 GM Tube 1 APPLIC TOPICAL ×2 (05:04→17:08)
[2023-07-05] MEDS: Nystatin Powder 15gm Bottle 1 APPLIC TOPICAL ×2 (05:05→17:08)
[2023-07-05 05:49] LABS: Hematocrit 33.1 % (40-54); Hemoglobin 10.4 g/dL (13.0-16.5)
[2023-07-05 06:00] VITALS: BMI 44.6
[2023-07-05 06:20] LABS: Bedside Glucose 89 mg/dL (74-106)
[2023-07-05] MEDS: Allopurinol 300 MG Tablet 150 MG PO (08:02)
[2023-07-05] MEDS: Insulin NPH Human 100 UNITS/ML PEN 25 UNITS SC ×2 (08:02→17:10)
[2023-07-05] MEDS: Multivitamins,Therapeutic Tablet 1 TABLET PO (08:03)
[2023-07-05] MEDS: Potassium Chloride Oral Tablet 20 MEQ PO (08:03)
[2023-07-05 09:32] VITALS: BMI 44.6
--- NOTE | 2023-07-05 10:48 | PHA.CONS_ITS ---
Documented by User: Ingrid Rizvi 07/05/23 11:15 TCU RX Drug Regimen Review Subjective/Objective Subjective/Objective: Subjective: TCU Admission. 83 YOM presented to the ER as a stroke alert. Hospitalized for encephalopathy, TIA, stroke ruled out. Admitted to TCU with rober jackson for strengthening and rehabilitation. Objective: Allergies Penicillins [PCN] Allergy (Verified 01/31/23 15:29) Swelling Current Medications Generic Name Dose Route Start Last Admin Trade Name Freq PRN Reason Stop Dose Admin Acetaminophen 1,000 mg 07/03/23 20:38 07/04/23 19:48 Acetaminophen 500 Mg Tablet PO 1,000 mg Q6H PRN PRN Administration Pain Score 1-10 Allopurinol 150 mg 07/04/23 08:00 07/05/23 08:02 Allopurinol 300 Mg Tablet PO 150 mg DAILYCM AYLIN Administration Apixaban 2.5 mg 07/03/23 18:00 07/05/23 05:04 Apixaban 2.5 Mg Tablet (Wch) PO 2.5 mg BID AYLIN Administration Atorvastatin Calcium 40 mg 07/03/23 22:00 07/04/23 19:49 Atorvastatin Calcium 40 Mg Tablet PO 40 mg QHS AYLIN Administration Calamine/Phenol 1 applic 07/03/23 18:00 07/05/23 05:04 Menthol/Lanolin/Calamine/Znox 113 Gm Tube TOPICAL 1 applic BID AYLIN Administration Protocol Calcitriol 0.5 mcg 07/04/23 06:00 07/04/23 05:37 Calcitriol 0.25 Mcg Capsule PO 0.5 mcg MOWEFR AYLIN Administration Cholecalciferol 25 mcg 07/04/23 06:00 07/05/23 05:04 Cholecalciferol (Vit D3) 25 Mcg Tablet (1,000 Units) PO 25 mcg DAILY AYLIN Administration Famotidine 20 mg 07/04/23 06:00 07/05/23 05:04 Famotidine 20 Mg Tablet PO 20 mg DAILY AYLIN Administration Furosemide 40 mg 07/04/23 10:00 07/04/23 08:50 Furosemide 40 Mg Tablet PO 40 mg QODAY AYLIN Administration Insulin Human NPH 25 units 07/03/23 18:00 07/05/23 08:02 Insulin Nph Human 100 Units/Ml Pen SC 25 units BID AYLIN Administration Isosorbide Mononitrate 30 mg 07/04/23 06:00 07/05/23 05:04 Isosorbide Mononitrate 30 Mg Tablet PO 30 mg DAILY AYLIN Administration Levetiracetam 500 mg 07/03/23 18:00 07/05/23 05:04 Levetiracetam 500 Mg Tablet PO 500 mg BID AYLIN Administration Lorazepam 0.5 mg 07/04/23 21:03 07/04/23 21:14 Lorazepam 0.5 Mg Tablet PO 0.5 mg Q6H PRN PRN Administration ANXIETY/RESTLESSNESS/SLEEP Magnesium Citrate 300 ml 07/03/23 20:38 Magnesium Citrate 300 Ml PO DAILY PRN Constipation Multivitamins 1 tablet 07/04/23 08:00 07/05/23 08:03 Multivitamins,Therapeutic Tablet PO 1 tablet DAILYCM AYLIN Administration Nystatin 1 applic 07/03/23 18:00 07/05/23 05:05 Nystatin Powder 15gm Bottle TOPICAL 1 applic BID AYLIN Administration Protocol Olanzapine 2.5 mg 07/03/23 22:00 07/04/23 19:49 Olanzapine 2.5 Mg Tablet PO 2.5 mg QHS AYLIN Administration Potassium Chloride 20 meq 07/04/23 08:00 07/05/23 08:03 Potassium Chloride Oral Tablet 20 Meq PO 20 meq DAILYCM AYLIN Administration Psyllium Hydrophilic Mucilloid 1 packet 07/03/23 18:00 07/05/23 05:04 Psyllium 1 Packet PO 1 packet BID AYLIN Administration Sertraline HCl 25 mg 07/04/23 06:00 07/05/23 05:04 Sertraline 50 Mg Tablet PO 25 mg DAILY AYLIN Administration Sodium Chloride 10 - 40 ml 07/03/23 14:55 07/04/23 08:53 0.9% Saline Lock 10 Ml Syringe IV 10 ml UD PRN Administration SALINE FLUSH Tuberculin PPD 0.1 ml 07/11/23 10:00 Tuberculin,Purif.Prot.Deriv. 50 Tu/Ml Vial ID 07/11/23 10:01 X1 ONE Problem List (Updated 07/03/23 @ 20:[address] Jeremy Magallanes MD) Coronary artery disease (Acute) Seizure disorder (Acute) GERD (gastroesophageal reflux disease) (Acute) Depression (Acute) Diabetes mellitus (Acute) Chronic respiratory failure (Chronic) Atrial fibrillation (Acute) Hypertension (Chronic) Aortic stenosis (Acute) Expressive aphasia (Acute) Dysarthria (Acute) Debility (Acute) Encephalopathy (Acute) TIA (transient ischemic attack) (Acute) Obstructive sleep apnea (Chronic) Vital Signs Temp Pulse Resp BP Pulse Ox O2 Del Method O2 Flow Rate 96.7 F L 61 18 132/44 H 96 Nasal Cannula 4 07/04/23 15:24 07/04/23 19:55 07/04/23 19:55 07/04/23 15:24 07/04/23 15:24 07/04/23 19:55 07/05/23 09:31 FiO2 92 07/04/23 19:55 Oxygen Flow Rate (L/min) 4 Oxygen Delivery Method Nasal Cannula Weight: 121.88 kg Body Mass Index (BMI) 44.6 Sodium 139 mmol/L (136-145) 07/04/23 05:26 Potassium 4.4 mmol/L (3.5-5.1) 07/04/23 05:26 Chloride 112 mmol/L (98-107) H 07/04/23 05:26 Carbon Dioxide 23.0 mmol/L (21.0-32.0) 07/04/23 05:26 Anion Gap 4 (5-15) L 07/04/23 05:26 BUN 46 mg/dL (7-18) H 07/04/23 05:26 Creatinine 2.28 mg/dL (0.70-1.30) H 07/04/23 05:26 Est GFR (MDRD) Af Amer 36 mL/min (>60) L 07/04/23 05:26 Est GFR (MDRD) Non-Af 29 mL/min (>60) L 07/04/23 05:26 BUN/Creatinine Ratio 20.2 RATIO (10-20) H 07/04/23 05:26 Glucose 136 mg/dL (74-106) H 07/04/23 05:26 Assessment/Plan: 1. Pain: acetaminophen 1000mg PO Q6H PRN pain 1-10. Resident has had 2 doses for generalized pain of 2-3. Please continue to monitor for increased pain and PRN usage. 2. Bowel: Metamucil 1 packet PO BID and magnesium citrate 300mL PO daily PRN constipation. Resident has not used any PRN doses. Please continue to monitor for constipation and PRN usage. Last documented bowel movement 07/04/23. 3. Atrial fibrillation/CAD: apixaban 2.5mg PO BID, isosorbide mononitrate 30mg PO daily. Please continue to monitor for S/S of bleeding, renal function (dose appropriate as age is >80 and SCR > 1.5mg/dL), headaches and facial flushing. 4. Gout: allopurinol 150mg PO daily. Please continue to monitor for S/S of gout and renal function. 5. Hyperlipidemia: atorvastatin 40mg PO QHS. Please continue to monitor lipid panel (last 06/30/23), LFTs (last 07/01/23) and muscle pain. 6. Edema: furosemide 40mg PO every other day. Please continue to monitor for S/S of edema, renal function and potassium (last 4.4mmol/L). 7. Diabetes mellitus: insulin NPH 25units SC BID. Please continue to monitor glucose (last 89mg/dL), hemoglobin A1c (last 5.6% 06/30/23) and S/S of hypoglycemia. 8. Seizure disorder: levetiracetam 500mg PO BID. Please continue to monitor for falls/fractures (BEERs medication), S/S of seizures, depression (on sertraline and olanzapine) and irritability. 9. Hyperparathyroidism: calcitriol 0.5mcg PO MWF. Please continue to monitor calcium (last 7.7mg/dL). 10. GERD: famotidine 20mg PO daily. Please continue to monitor for S/S of GERD and renal function. 11. Hypokalemia/vitamin D deficiency/nutrition: potassium chloride 20mEq PO daily, cholecalciferol 25mcg PO daily and multivitamin 1T PO daily. Please consider ordering a vitamin D level as the last level is from 06/18/22 if clinically appropriate. Thanks. Please continue to monitor potassium levels. Assessment/Plan for indications treated with psychotropic medications: 1. Depression: sertraline 25mg PO daily and olanzapine 2.5mg PO QHS. Please see physician note regarding GDR. Please continue to monitor for suicidal ideation (black box warning), falls/fractures (BEERs medication), sodium (last 139mmol/L), dementia/delirium (black box warning and BEERs medication for olanzapine), S/S of stroke (BEERs medication) and anticholinergic side effects (BEERs mediation). 2. Anxiety/sleep/restlessness: lorazepam 0.5mg PO Q6H PRN anxiety/sleep/restlessness. Resident has received 1 dose so far. GDR likely not indicated as this medication was just started and resident has only had 1 dose. Please continue to monitor for falls/fractures (BEERs medication) and dementia/delirium (BEERs medication). Medical chart and medication regimen reviewed. The following medication irregularities or issues were identified: *1. Cholecalciferol 25mcg PO daily. Please consider ordering a vitamin D level as the last level is from 06/18/22 if clinically appropriate. Thanks. Date Date of Note:: 07/05/23 Documented by User: Dr. Jeremy Magallanes MD 07/05/23 11:19 TCU RX Drug Regimen Review Provider Comments Provider responsibility Provider Comments to Recommendations by Pharmacy: Agree
[2023-07-05 11:31] LABS: Bedside Glucose 112 mg/dL (74-106)
[2023-07-05 13:39] VITALS: O2SAT 93
--- NOTE | 2023-07-05 15:03 | WOUNDNOTE ---
wound photo: right cifuentes
--- NOTE | 2023-07-05 15:03 | WOUNDNOTE ---
wound photo: left posteromedial lower leg
--- NOTE | 2023-07-05 15:40 | CHAPLAIN ---
Type of Pastoral Visit ___ Initial Visit ___ Follow-up Visit ___ On-call Visit ___ General Patient Visit ___ Spiritual Assessment ___ Family Conference ___ Bereavement ___ Rapid Response ___ Code Blue ___ Other (describe below) Pastoral Care Referral From ___ Patient ___ Family ___ Nurse ___ Physician ___ Orthodontist Assistant ___ Hand Button Splitter ___ Other (describe below) Sacrament/Intervention ___ Active listening ___ Anointing ___ Zoroastrian ___ Bereavement ___ Communion ___ Cora exploration ___ ___ Life review ___ Prayer ___ Reconciliation ___ Sacrament of Sick ___ Supportive presence ___ Wedding ___ Other (describe below) Pastoral Comments visit attempted but patient was sleeping soundly with a C-pap machine; left a calling card
[2023-07-05 16:00] VITALS: BP 147/71; PULSE 64; RESP 16; TEMP 36.1; O2SAT 98
[2023-07-05 17:01] LABS: Bedside Glucose 112 mg/dL (74-106)
[2023-07-05 19:49] VITALS: PULSE 75; RESP 18; O2SAT 100
[2023-07-05] MEDS: OLANZapine 2.5 MG Tablet PO (20:14)
[2023-07-05] MEDS: Atorvastatin Calcium 40 MG Tablet PO (20:14)
[2023-07-05] MEDS: LORazepam 0.5 MG Tablet PO (21:18)
[2023-07-05 21:45] LABS: Bedside Glucose 134 mg/dL (74-106)
[2023-07-06] MEDS: Calcitriol 0.25 MCG Capsule 0.5 MCG PO (05:46)
[2023-07-06] MEDS: Famotidine 20 MG Tablet PO (05:47)
[2023-07-06] MEDS: Isosorbide Mononitrate 30 MG Tablet PO (05:47)
[2023-07-06] MEDS: Sertraline 50 MG Tablet 25 MG PO (05:47)
[2023-07-06] MEDS: levETIRAcetam 500 MG Tablet PO ×2 (05:47→19:06)
[2023-07-06] MEDS: APIXABAN 2.5 MG TABLET (WCH) PO ×2 (05:47→19:06)
[2023-07-06] MEDS: Cholecalciferol (VIT D3) 25 MCG TABLET (1,000 UNITS) PO (05:47)
[2023-07-06] MEDS: Nystatin Powder 15gm Bottle 1 APPLIC TOPICAL (05:54)
[2023-07-06] MEDS: Menthol/Lanolin/Calamine/Znox 113 GM Tube 1 APPLIC TOPICAL ×2 (05:54→16:56)
[2023-07-06 06:12] LABS: Vitamin D,25 Hydroxy 42.3 ng/mL
[2023-07-06 06:27] LABS: Bedside Glucose 96 mg/dL (74-106)
[2023-07-06] MEDS: Potassium Chloride Oral Tablet 20 MEQ PO (08:35)
[2023-07-06] MEDS: Allopurinol 300 MG Tablet 150 MG PO (08:35)
[2023-07-06] MEDS: Multivitamins,Therapeutic Tablet 1 TABLET PO (08:35)
[2023-07-06] MEDS: Furosemide 40 MG Tablet PO (08:36)
--- NOTE | 2023-07-06 09:52 | EKG12_ITS ---
Test Reason : Blood Pressure : / mmHG Vent. Rate : 066 BPM Atrial Rate : 086 BPM P-R Int : 000 ms QRS Dur : 154 ms QT Int : 464 ms P-R-T Axes : 000 002 163 degrees QTc Int : 486 ms Atrial fibrillation Left bundle branch block Abnormal ECG Confirmed by BHAVNA BAIG, GALE ([id number]), market editor ES SIMON ([id number]) on 07/11/2023 9:15:54 AM Referred By: STANLEY Confirmed By:REJI HUGGINS MD
[2023-07-06 10:00] VITALS: PULSE 60; RESP 16; O2SAT 98
[2023-07-06 10:20] VITALS: O2SAT 93
--- NOTE | 2023-07-06 10:40 | NURSING ---
Patient had witnessed fall by GOLF BALL WINDER [id number] 07/06/23. Dr and family (Maria Luisa) Notified. specialty department supervisor was in the unit at the time and assisted w/ getting patient up off floor. Patient had sustained right forearm skin tea approx 3cm x 6cm. Patient also had hit his head on the way down on fall. Patient states he is unsure what he was doing and whenever his PA alerted he was immediately on the ground per GOLF BALL WINDER and resident. Patient did not utilize call light. VS were BP 156/66, 98% 4LNC, 24 RR, Heart rate was very irregular 70 and bradying downward 40's. STAT EKG ordered. STAT CT ordered due to patient being on anticoagulation therapy. Patient skin tear dressed w/ adpatic/ABD/Kerlix. Patient tolerated dressing well. Patient neuro assessments started. Patient currently resting in bed w/ no complaints. Call light w/in reach and alarm on. Fall incident report sheet filled out and given to Boiler Maker.
[2023-07-06 11:20] LABS: Bedside Glucose 114 mg/dL (74-106)
--- NOTE | 2023-07-06 11:52 | CHAPLAIN ---
Type of Pastoral Visit _x__ Initial Visit ___ Follow-up Visit ___ On-call Visit ___ General Patient Visit ___ Spiritual Assessment ___ Family Conference ___ Bereavement ___ Rapid Response ___ Code Blue ___ Other (describe below) Pastoral Care Referral From _x__ Patient ___ Family ___ Nurse ___ Physician ___ Silk Screen Processor ___ Metal Mixer ___ Other (describe below) Sacrament/Intervention _x__ Active listening ___ Anointing ___ Shinto ___ Bereavement ___ Communion ___ Cora exploration ___ _x__ Life review _x__ Prayer ___ Reconciliation ___ Sacrament of Sick ___ Supportive presence ___ Wedding ___ Other (describe below) Pastoral Comments patient and granddaughter are in the room; pt talks slowly but enough to carry on a conversation about his life and especially concerning work history; pt does have some trouble with dates and numbers as conversation progresses; pt states he is satisfied with care here in TCU; pt goal is to go home soon
--- NOTE | 2023-07-06 13:07 | WOUNDNOTE ---
Pt is currently working with therapy. will reassess the legs later in the week.
--- NOTE | 2023-07-06 13:23 | CASEMGMT ---
Social Work IDT met with patient and gddtr for care plan meeting. Discussed patient's progress in PT/OT/ST/SN. Educated to Medicare benefit. Encouraged to contact secondary insurance to ensure copay coverage. Pt lives at home with gddtr but she works machinist 2nd shift and then sleeps part of the daytime, so pt is alone during those times. IDT recommending 24/7 care for falls, physical assistance and cognitive impairments. SW inquired about gddtr's schedule. Gddtr explained: works 10 pm - 8 am, assist pt with setting meds, blood sugars, prepares breakfast, cleans pt's room, adjust O2 and bipap, refill water tank if needed, then goes to sleep until about 5-6 pm. Pt usually wakes up from 9a-12pm, then goes to living room to watch TV. Pt goes to the bathroom, gets lunch and water on own. Pt and gddtr eat dinner together. Gddtr expressed understanding of pt's needs and is realistic to when she is no longer able to assist pt. SW offered assistance with DC planning. Explained home with [facility] or SNF; educated to financial liability. Gddtr inquired about completing HCPOA. SW explained that can be completed if IDT concludes pt has the capacity to complete those documents. If not, explained decisions legally default to children. SW educated to guardianship, which gddtr is interested in. SW encouraged to think about DC plans and this worker will assist. ERICA will continue to follow. Dalia Samuels, SUMAYA PADGETTW
[2023-07-06 16:00] VITALS: BP 112/57; PULSE 70; RESP 18; TEMP 35.8; O2SAT 99
[2023-07-06] MEDS: LORazepam 0.5 MG Tablet PO (16:48)
[2023-07-06 16:58] LABS: Bedside Glucose 150 mg/dL (74-106)
[2023-07-06] MEDS: Insulin NPH Human 100 UNITS/ML PEN 25 UNITS SC (19:06)
[2023-07-06] MEDS: Psyllium 1 PACKET PO (19:06)
[2023-07-06] MEDS: OLANZapine 2.5 MG Tablet PO (20:28)
[2023-07-06] MEDS: Atorvastatin Calcium 40 MG Tablet PO (20:28)
--- NOTE | 2023-07-06 20:58 | NURSING ---
Addendum entered by Rina Bland 07/07/23 00:34: written communication left for Dr. Magallanes regarding skin tear to LFA and aggression toward staff. Addendum entered by Rina Bland 07/06/23 21:08: patient rep (Maria Luisa) notified of patient skin tear and patient aggression toward staff this shift via telephone. No concerns voiced at this time Original Note: PCAx2 report patient skin tear to left arm, occurred while patient was swinging at staff while assisting to bathroom. No drainage observed at this time. Per PCAx2 patient became belligerent cursing at staff while assisting patient to the toilet, swinging arms at staff while yelling are you queer?. Patient immediately assessed, skin tear to forearm 4cm in length, skin flap intact. Dressing applied. Patient cooperative at this time with redirection. Patient continues to be confused stating I need to go out there my brother is out there, patient brother is not present on unit. Patient offered assist to bed, patient declines. Patient resting in recliner in TCU common area with staff assist and franco within reach to request staff assist. O2 on VIA NC at 4LPM.
[2023-07-06 21:24] LABS: Bedside Glucose 180 mg/dL (74-106)
[2023-07-07 03:03] VITALS: RESP 14
[2023-07-07] MEDS: Menthol/Lanolin/Calamine/Znox 113 GM Tube 1 APPLIC TOPICAL ×2 (05:37→17:53)
[2023-07-07] MEDS: Nystatin Powder 15gm Bottle 1 APPLIC TOPICAL ×2 (05:37→17:53)
[2023-07-07] MEDS: Cholecalciferol (VIT D3) 25 MCG TABLET (1,000 UNITS) PO (05:47)
[2023-07-07] MEDS: APIXABAN 2.5 MG TABLET (WCH) PO ×2 (05:47→17:52)
[2023-07-07] MEDS: Psyllium 1 PACKET PO ×2 (05:47→17:52)
[2023-07-07] MEDS: levETIRAcetam 500 MG Tablet PO ×2 (05:47→17:52)
[2023-07-07] MEDS: Sertraline 50 MG Tablet 25 MG PO (05:47)
[2023-07-07] MEDS: Isosorbide Mononitrate 30 MG Tablet PO (05:47)
[2023-07-07] MEDS: Famotidine 20 MG Tablet PO (05:49)
[2023-07-07 05:56] VITALS: BP 137/70; PULSE 65; RESP 18; O2SAT 98
[2023-07-07 06:00] VITALS: BMI 44.7
[2023-07-07 06:20] LABS: Bedside Glucose 87 mg/dL (74-106)
[2023-07-07] MEDS: Multivitamins,Therapeutic Tablet 1 TABLET PO (08:48)
[2023-07-07] MEDS: Allopurinol 300 MG Tablet 150 MG PO (08:48)
[2023-07-07] MEDS: Potassium Chloride Oral Tablet 20 MEQ PO (08:48)
[2023-07-07 10:40] VITALS: O2SAT 97
[2023-07-07 10:59] LABS: Bedside Glucose 127 mg/dL (74-106)
--- NOTE | 2023-07-07 11:20 | NURSING ---
Appointment Wednesday 07/11 3:00 @ the Infusion center.
--- NOTE | 2023-07-07 14:21 | MDS.RN ---
Pain assessment for mds completed.
[2023-07-07 14:53] VITALS: BP 139/58; PULSE 68; RESP 22; TEMP 35.8; O2SAT 93
--- NOTE | 2023-07-07 16:33 | CASEMGMT ---
Social Work BIMS (08/12) and PHQ-9 (03/24) completed for MDS assessment. SUMAYA BrittW
[2023-07-07 16:41] LABS: Bedside Glucose 166 mg/dL (74-106)
[2023-07-07] MEDS: Insulin NPH Human 100 UNITS/ML PEN 20 UNITS SC (17:52)
[2023-07-07 17:54] LABS: Absolute Lymphocyte Count 1.71 X10^3/uL (0.83-4.51); Absolute Neutrophil Count 7.3 X10^3/uL (2.0-7.7); Basophil# 0.04 X10^3/uL; Basophil% 0.4 % (0-1); Eosinophil# 0.27 X10^3/uL; Eosinophils% 2.7 % (0-5); Hematocrit 30.8 % (40-54); Hemoglobin 9.9 g/dL (13.0-16.5); Lymphocyte # 1.71 X10^3/ul (0.83-4.51); Lymphocyte % 16.9 % (19-41); Mean Corp Hgb Conc 32.1 g/dL (32-36); Mean Corpuscular Hgb 31.7 pg (27.0-32.0); Mean Corpuscular Volume 98.7 fL (80-94); Mean Platelet Vol. 10.8 fl (6.2-12.0); Monocyte# 0.77 X10^3/uL; Monocyte% 7.6 % (0-10); NRBC Flagged by Analyzer 0 % (0-5); Neutrophil # 7.28 X10^3/uL (2.7-7.7); Neutrophil % 71.8 % (47-70); Platelet Count 152 K/mm3 (150-450); RBC Distribution Width CV 14.6 % (11.6-14.6); RBC Distribution Width SD 52.6 fl (35.1-43.9); Red Blood Count 3.12 M/mm3 (4.6-6.2); White Blood Count 10.1 K/mm3 (4.4-11.0)
[2023-07-07 18:06] LABS: ALB/GLOB Ratio 0.7 RATIO (0.9-2.4); AST(SGOT) 20 U/L (15-37); Alanine Aminotransfer ALT/SGPT 22 U/L (16-61); Albumin, Serum 2.9 g/dL (3.2-5.0); Alkaline Phosphatase 167 U/L (45-117); Anion Gap 6 (5-15); BUN 58 mg/dL (7-18); BUN/Creat Ratio 23.8 RATIO (10-20); Calcium,Total 8.9 mg/dL (8.5-10.1); Chloride 106 mmol/L (98-107); Creatinine, Serum 2.44 mg/dL (0.70-1.30); EST Glomerular Filtration Rate 27 mL/min (>60); Est Glom Filt Rate - Afr Amer 33 mL/min (>60); Globulin 4.3 g/dL (2.2-4.2); Glucose 159 mg/dL (74-106); Protein, Total 7.2 g/dL (6.4-8.2); Sodium Level 134 mmol/L (136-145)
--- NOTE | 2023-07-07 18:26 | NURSING ---
pt having hallucinations of rabbits on the ceiling and ashes on the toilet seat,and seeing semi tailor in his room Dr. Magallanes made aware and Labs have been ordered.
[2023-07-07] MEDS: LORazepam 0.5 MG Tablet PO ×2 (18:54→23:23)
[2023-07-07] MEDS: OLANZapine 2.5 MG Tablet PO (19:54)
[2023-07-07] MEDS: Atorvastatin Calcium 40 MG Tablet PO (19:55)
[2023-07-07 20:22] VITALS: PULSE 72; RESP 20; O2SAT 96
[2023-07-07 21:32] LABS: Bedside Glucose 167 mg/dL (74-106)
[2023-07-07 23:43] LABS: Bacteria 0 SEEN /hpf (None Seen); Mucous, Urine 0 SEEN /hpf (<or=2+); Squamous Epithelial Cells - UA 0 SEEN /hpf (0-5); White Blood Cells 0 SEEN /hpf (0-5)
[2023-07-07 23:57] LABS: Color, Urine Yellow (Yellow); Glucose, Dipstick Normal (Normal); Ketone-Dipstick Negative (Negative); Leukocyte Esterase-Dipstick Negative /ul (Negative); Nitrite-Dipstick Negative (Negative); Occult Blood-Urine 250 /ul (Negative); Protein-Dipstick 100 mg/dl (Negative); Specific Gravity, Urine 1.015 (1.002-1.030); Urine Bilirubin Dipstick Negative (Negative); Urine Clarity Clear (Clear); Urine Urobilinogen Normal (Normal)
[2023-07-08 00:11] LABS: Red Blood Cells-Urine 5-10 SEEN /hpf (0-5)
[2023-07-08] MEDS: Famotidine 20 MG Tablet PO (04:56)
[2023-07-08] MEDS: APIXABAN 2.5 MG TABLET (WCH) PO ×2 (04:56→17:08)
[2023-07-08] MEDS: Cholecalciferol (VIT D3) 25 MCG TABLET (1,000 UNITS) PO (04:56)
[2023-07-08] MEDS: LORazepam 0.5 MG Tablet PO ×2 (04:56→17:07)
[2023-07-08] MEDS: Sertraline 50 MG Tablet 25 MG PO (04:56)
[2023-07-08] MEDS: levETIRAcetam 500 MG Tablet PO ×2 (04:57→17:09)
[2023-07-08] MEDS: Calcitriol 0.25 MCG Capsule 0.5 MCG PO (04:57)
[2023-07-08] MEDS: Nystatin Powder 15gm Bottle 1 APPLIC TOPICAL ×2 (04:57→17:07)
[2023-07-08] MEDS: Menthol/Lanolin/Calamine/Znox 113 GM Tube 1 APPLIC TOPICAL ×2 (04:57→17:08)
[2023-07-08] MEDS: Isosorbide Mononitrate 30 MG Tablet PO (05:02)
[2023-07-08 05:07] VITALS: BP 116/99; PULSE 88; RESP 20; O2SAT 95
[2023-07-08 06:34] LABS: Bedside Glucose 132 mg/dL (74-106)
[2023-07-08 07:41] VITALS: O2SAT 96
[2023-07-08] MEDS: Potassium Chloride Oral Tablet 20 MEQ PO (07:53)
[2023-07-08] MEDS: Allopurinol 300 MG Tablet 150 MG PO (07:54)
[2023-07-08] MEDS: Multivitamins,Therapeutic Tablet 1 TABLET PO (07:54)
[2023-07-08] MEDS: Insulin NPH Human 100 UNITS/ML PEN 20 UNITS SC ×2 (08:01→18:38)
--- NOTE | 2023-07-08 08:40 | RAD_ITS ---
STUDY: X-RAY CHEST REASON FOR EXAM: Male, 83 years old. Hypoxia. Encephalopathy. TECHNIQUE: AP and lateral views of the chest. COMPARISON: Comparison is made with prior study dated June 29, 2023. FINDINGS: Mild increased markings at the left lung base with blunting of the left costophrenic angle. Sternal cerclage wires and vascular clips are present from a prior sternotomy and coronary artery bypass graft procedure (CABG). Thyromegaly. Normal mediastinum and baudilio. Normal visualized pulmonary arteries. There is atherosclerotic calcification of the aortic arch with tortuosity. There are diffuse degenerative changes of the visualized thoracic spine. There is degenerative osteoarthritis of the bilateral shoulders. There is no demonstrated abnormality of the visualized soft tissue structures of the upper abdomen. RAD/Chest PA and Lateral IMPRESSION: Status post CABG. Cardiomegaly. Increased markings at the left lung base with blunting of the left costophrenic angle. Electronically Signed: Mahendra Canada MD at 9:33 EDT ,
[2023-07-08 09:18] LABS: Absolute Lymphocyte Count 1.28 X10^3/uL (0.83-4.51); Absolute Neutrophil Count 8.4 X10^3/uL (2.0-7.7); Basophil# 0.05 X10^3/uL; Basophil% 0.5 % (0-1); Eosinophil# 0.13 X10^3/uL; Eosinophils% 1.2 % (0-5); Hematocrit 28.6 % (40-54); Hemoglobin 9.2 g/dL (13.0-16.5); Lymphocyte # 1.28 X10^3/ul (0.83-4.51); Mean Corp Hgb Conc 32.2 g/dL (32-36); Mean Corpuscular Hgb 31.8 pg (27.0-32.0); Mean Platelet Vol. 10.2 fl (6.2-12.0); Monocyte# 0.72 X10^3/uL; Monocyte% 6.8 % (0-10); NRBC Flagged by Analyzer 0.2 % (0-5); Neutrophil # 8.37 X10^3/uL (2.7-7.7); Neutrophil % 78.7 % (47-70); Platelet Count 149 K/mm3 (150-450); RBC Distribution Width CV 14.6 % (11.6-14.6); RBC Distribution Width SD 52.3 fl (35.1-43.9); Red Blood Count 2.89 M/mm3 (4.6-6.2); White Blood Count 10.6 K/mm3 (4.4-11.0)
[2023-07-08 09:29] LABS: BNP,B-Type NATRIURETIC PEPTIDE 329.5 pg/mL (0-100)
[2023-07-08 09:31] LABS: ALB/GLOB Ratio 0.7 RATIO (0.9-2.4); AST(SGOT) 20 U/L (15-37); Alanine Aminotransfer ALT/SGPT 19 U/L (16-61); Albumin, Serum 2.7 g/dL (3.2-5.0); Alkaline Phosphatase 144 U/L (45-117); Anion Gap 5 (5-15); BUN 65 mg/dL (7-18); BUN/Creat Ratio 26.1 RATIO (10-20); Calcium,Total 8.7 mg/dL (8.5-10.1); Chloride 109 mmol/L (98-107); Creatinine, Serum 2.49 mg/dL (0.70-1.30); EST Glomerular Filtration Rate 27 mL/min (>60); Est Glom Filt Rate - Afr Amer 32 mL/min (>60); Glucose 141 mg/dL (74-106); Potassium 5.1 mmol/L (3.5-5.1); Protein, Total 6.7 g/dL (6.4-8.2); Sodium Level 135 mmol/L (136-145)
[2023-07-08 09:54] VITALS: BMI 47.5
[2023-07-08 11:20] LABS: Bedside Glucose 124 mg/dL (74-106)
[2023-07-08 11:58] VITALS: O2SAT 97
[2023-07-08] MEDS: Furosemide 40 MG Tablet PO (12:24)
--- NOTE | 2023-07-08 13:37 | NURSING ---
Granddaughter in room. Updated on new orders regarding chest x-ray, labs and urine sample. Denies further questions at this time.
[2023-07-08 14:34] VITALS: PULSE 94; RESP 18; TEMP 36.8; O2SAT 91
[2023-07-08] MEDS: levoFLOXacin 750 MG Tablet PO (15:04)
[2023-07-08] MEDS: Psyllium 1 PACKET PO (17:09)
[2023-07-08 17:23] LABS: Bedside Glucose 87 mg/dL (74-106)
[2023-07-08] MEDS: OLANZapine 2.5 MG Tablet PO (20:32)
[2023-07-08] MEDS: Atorvastatin Calcium 40 MG Tablet PO (20:32)
[2023-07-08 21:40] LABS: Bedside Glucose 62 mg/dL (74-106)
[2023-07-08 22:09] LABS: Bedside Glucose 72 mg/dL (74-106)
[2023-07-08 22:58] LABS: Bedside Glucose 88 mg/dL (74-106)
[2023-07-08 23:51] VITALS: RESP 18; O2SAT 93
[2023-07-09 02:27] LABS: Bedside Glucose 78 mg/dL (74-106)
[2023-07-09] MEDS: Psyllium 1 PACKET PO ×2 (06:13→17:54)
[2023-07-09] MEDS: Sertraline 50 MG Tablet 25 MG PO (06:13)
[2023-07-09] MEDS: Cholecalciferol (VIT D3) 25 MCG TABLET (1,000 UNITS) PO (06:13)
[2023-07-09] MEDS: Menthol/Lanolin/Calamine/Znox 113 GM Tube 1 APPLIC TOPICAL ×2 (06:14→17:52)
[2023-07-09] MEDS: Isosorbide Mononitrate 30 MG Tablet PO (06:14)
[2023-07-09] MEDS: levETIRAcetam 500 MG Tablet PO ×2 (06:14→17:54)
[2023-07-09] MEDS: Famotidine 20 MG Tablet PO (06:14)
[2023-07-09] MEDS: APIXABAN 2.5 MG TABLET (WCH) PO ×2 (06:15→17:53)
[2023-07-09] MEDS: Nystatin Powder 15gm Bottle 1 APPLIC TOPICAL ×2 (06:16→17:54)
[2023-07-09 07:01] LABS: Bedside Glucose 91 mg/dL (74-106)
[2023-07-09 07:39] LABS: Bedside Glucose 100 mg/dL (74-106)
[2023-07-09] MEDS: Potassium Chloride Oral Tablet 20 MEQ PO (08:09)
[2023-07-09] MEDS: Allopurinol 300 MG Tablet 150 MG PO (08:12)
[2023-07-09] MEDS: Multivitamins,Therapeutic Tablet 1 TABLET PO (08:12)
[2023-07-09 08:36] LABS: Absolute Lymphocyte Count 1.61 X10^3/uL (0.83-4.51); Absolute Neutrophil Count 6.2 X10^3/uL (2.0-7.7); Basophil# 0.04 X10^3/uL; Basophil% 0.5 % (0-1); Eosinophil# 0.27 X10^3/uL; Hematocrit 30.6 % (40-54); Hemoglobin 9.9 g/dL (13.0-16.5); Lymphocyte # 1.61 X10^3/ul (0.83-4.51); Lymphocyte % 18.1 % (19-41); Mean Corp Hgb Conc 32.4 g/dL (32-36); Mean Corpuscular Hgb 31.8 pg (27.0-32.0); Mean Corpuscular Volume 98.4 fL (80-94); Mean Platelet Vol. 10.6 fl (6.2-12.0); Monocyte# 0.77 X10^3/uL; Monocyte% 8.7 % (0-10); NRBC Flagged by Analyzer 0 % (0-5); Neutrophil # 6.15 X10^3/uL (2.7-7.7); Neutrophil % 69.2 % (47-70); Platelet Count 162 K/mm3 (150-450); RBC Distribution Width CV 14.8 % (11.6-14.6); RBC Distribution Width SD 52.3 fl (35.1-43.9); Red Blood Count 3.11 M/mm3 (4.6-6.2); White Blood Count 8.9 K/mm3 (4.4-11.0)
[2023-07-09 08:51] LABS: Anion Gap 7 (5-15); BUN 68 mg/dL (7-18); BUN/Creat Ratio 27.8 RATIO (10-20); Chloride 111 mmol/L (98-107); Creatinine, Serum 2.45 mg/dL (0.70-1.30); EST Glomerular Filtration Rate 27 mL/min (>60); Est Glom Filt Rate - Afr Amer 33 mL/min (>60); Estimated Creatinine Clearance 20.22 ml/min; Glucose 90 mg/dL (74-106); Potassium 4.9 mmol/L (3.5-5.1); Sodium Level 138 mmol/L (136-145)
[2023-07-09 11:04] LABS: Bedside Glucose 93 mg/dL (74-106)
[2023-07-09 13:20] VITALS: BMI 44.1
[2023-07-09 14:38] VITALS: O2SAT 99
[2023-07-09 15:12] VITALS: BP 104/65; PULSE 67; RESP 18; TEMP 36.7; O2SAT 98
[2023-07-09 16:14] LABS: Bedside Glucose 120 mg/dL (74-106)
[2023-07-09] MEDS: Insulin NPH Human 100 UNITS/ML PEN 20 UNITS SC (18:51)
[2023-07-09] MEDS: Acetaminophen 500 MG Tablet 1000 MG PO (19:01)
[2023-07-09 20:53] VITALS: PULSE 69; RESP 18; O2SAT 98
[2023-07-09] MEDS: Atorvastatin Calcium 40 MG Tablet PO (21:10)
[2023-07-09] MEDS: OLANZapine 2.5 MG Tablet PO (21:10)
[2023-07-09] MEDS: LORazepam 0.5 MG Tablet PO (21:10)
[2023-07-09 22:03] LABS: Bedside Glucose 162 mg/dL (74-106)
[2023-07-10] MEDS: Menthol/Lanolin/Calamine/Znox 113 GM Tube 1 APPLIC TOPICAL ×2 (05:03→17:47)
[2023-07-10] MEDS: Psyllium 1 PACKET PO ×2 (05:05→17:47)
[2023-07-10] MEDS: APIXABAN 2.5 MG TABLET (WCH) PO ×2 (05:05→17:46)
[2023-07-10] MEDS: Famotidine 20 MG Tablet PO (05:05)
[2023-07-10] MEDS: Cholecalciferol (VIT D3) 25 MCG TABLET (1,000 UNITS) PO (05:06)
[2023-07-10] MEDS: Isosorbide Mononitrate 30 MG Tablet PO (05:06)
[2023-07-10] MEDS: levoFLOXacin 750 MG Tablet PO (05:06)
[2023-07-10] MEDS: levETIRAcetam 500 MG Tablet PO ×2 (05:06→17:46)
[2023-07-10] MEDS: Nystatin Powder 15gm Bottle 1 APPLIC TOPICAL ×2 (05:06→17:50)
[2023-07-10] MEDS: Sertraline 50 MG Tablet 25 MG PO (05:06)
[2023-07-10 06:46] LABS: Bedside Glucose 110 mg/dL (74-106)
[2023-07-10 07:42] VITALS: O2SAT 97
[2023-07-10 10:00] VITALS: O2SAT 96
[2023-07-10] MEDS: Multivitamins,Therapeutic Tablet 1 TABLET PO (10:31)
[2023-07-10] MEDS: Furosemide 40 MG Tablet PO (10:31)
[2023-07-10] MEDS: Potassium Chloride Oral Tablet 20 MEQ PO (10:31)
[2023-07-10] MEDS: Allopurinol 300 MG Tablet 150 MG PO (10:32)
[2023-07-10] MEDS: Insulin NPH Human 100 UNITS/ML PEN 20 UNITS SC ×2 (10:33→17:48)
[2023-07-10 11:55] LABS: Bedside Glucose 121 mg/dL (74-106)
--- NOTE | 2023-07-10 12:58 | NURSING ---
Pt in bed with NC @ 4 L. SPO2 @ 99%. dropped to 3 L and after 30 min SPO2 96@. rechecked an hour later and pt was still at 97%. Turned O2 down to 2 L (pt's home baseline at home). Will continue to monitor
[2023-07-10 16:00] VITALS: BP 159/66; PULSE 68; RESP 18; TEMP 36.1; O2SAT 96
[2023-07-10 17:23] LABS: Bedside Glucose 149 mg/dL (74-106)
[2023-07-10] MEDS: Atorvastatin Calcium 40 MG Tablet PO (19:25)
[2023-07-10] MEDS: OLANZapine 2.5 MG Tablet PO (19:25)
[2023-07-10] MEDS: LORazepam 0.5 MG Tablet PO (21:04)
[2023-07-10 21:44] LABS: Bedside Glucose 175 mg/dL (74-106)
[2023-07-11] MEDS: Isosorbide Mononitrate 30 MG Tablet PO (05:04)
[2023-07-11] MEDS: APIXABAN 2.5 MG TABLET (WCH) PO ×2 (05:04→17:35)
[2023-07-11] MEDS: Calcitriol 0.25 MCG Capsule 0.5 MCG PO (05:04)
[2023-07-11] MEDS: Famotidine 20 MG Tablet PO (05:04)
[2023-07-11] MEDS: levETIRAcetam 500 MG Tablet PO ×2 (05:04→17:39)
[2023-07-11] MEDS: Psyllium 1 PACKET PO ×2 (05:04→17:39)
[2023-07-11] MEDS: Cholecalciferol (VIT D3) 25 MCG TABLET (1,000 UNITS) PO (05:04)
[2023-07-11] MEDS: Sertraline 50 MG Tablet 25 MG PO (05:04)
[2023-07-11] MEDS: Nystatin Powder 15gm Bottle 1 APPLIC TOPICAL ×2 (05:21→17:40)
[2023-07-11] MEDS: Menthol/Lanolin/Calamine/Znox 113 GM Tube 1 APPLIC TOPICAL ×2 (05:21→17:34)
[2023-07-11 05:45] LABS: Absolute Lymphocyte Count 0.89 X10^3/uL (0.83-4.51); Basophil# 0.04 X10^3/uL; Basophil% 0.4 % (0-1); Eosinophil# 0.29 X10^3/uL; Eosinophils% 3.2 % (0-5); Hematocrit 31.8 % (40-54); Hemoglobin 10.2 g/dL (13.0-16.5); Lymphocyte # 0.89 X10^3/ul (0.83-4.51); Lymphocyte % 9.8 % (19-41); Mean Corp Hgb Conc 32.1 g/dL (32-36); Mean Corpuscular Hgb 32.1 pg (27.0-32.0); Mean Platelet Vol. 10.5 fl (6.2-12.0); Monocyte# 0.86 X10^3/uL; Monocyte% 9.5 % (0-10); NRBC Flagged by Analyzer 0 % (0-5); Neutrophil # 6.98 X10^3/uL (2.7-7.7); Neutrophil % 76.7 % (47-70); Platelet Count 161 K/mm3 (150-450); RBC Distribution Width CV 15.2 % (11.6-14.6); RBC Distribution Width SD 53.7 fl (35.1-43.9); Red Blood Count 3.18 M/mm3 (4.6-6.2); White Blood Count 9.1 K/mm3 (4.4-11.0)
[2023-07-11 06:25] LABS: Anion Gap 7 (5-15); BUN 67 mg/dL (7-18); BUN/Creat Ratio 27.8 RATIO (10-20); Chloride 109 mmol/L (98-107); Creatinine, Serum 2.41 mg/dL (0.70-1.30); EST Glomerular Filtration Rate 28 mL/min (>60); Est Glom Filt Rate - Afr Amer 33 mL/min (>60); Estimated Creatinine Clearance 20.56 ml/min; Glucose 141 mg/dL (74-106); Sodium Level 136 mmol/L (136-145)
[2023-07-11 06:55] LABS: Bedside Glucose 132 mg/dL (74-106)
[2023-07-11] MEDS: Multivitamins,Therapeutic Tablet 1 TABLET PO (08:54)
[2023-07-11] MEDS: Allopurinol 300 MG Tablet 150 MG PO (08:55)
[2023-07-11] MEDS: Insulin NPH Human 100 UNITS/ML PEN 20 UNITS SC ×2 (08:57→17:39)
[2023-07-11] MEDS: Tuberculin,Purif.prot.deriv. 50 TU/ML Vial 0.1 ML ID (10:18)
[2023-07-11 10:49] VITALS: O2SAT 98
--- NOTE | 2023-07-11 11:03 | NUR.TO.PHY ---
Medical Diagnostic Radiographer Note; MDS for 07/10/2023 Complete
--- NOTE | 2023-07-11 11:16 | CON.PCM.RE_ITS ---
Assessment & Plan Assessment/Plan (1) CKD (chronic kidney disease) stage 4, GFR 15-29 ml/min: PLAN: Plan This is a pleasant 83-year-old male with past medical history significant for diabetes mellitus type 2, hypertension, COPD, A-fib, CKD stage IV who is currently in rehab unit receiving therapy after recent hospitalization for TIA/acute encephalopathy. Patient had MRI no evidence of stroke; CT of brain sh owed no acute bleed or acute process. Nephrology consulted as patient has history of chronic kidney disease. Patient is followed by Dr. Han. He has CKD stage IV secondary diabetic nephropathy and baseline creatinine has been ranging around 2.4 to 2.7 mg/dL. At this time renal function stable and at baseline, creatinine has been around 2.4 mg/dL over last few days. At time of initial hospital admission renal function was at baseline. Patient is nonoliguric and appears to be near euvolemic. Potassium and acid-base acceptable. We will continue to monitor renal function. Reviewed medications, blood pressures acceptable, continue on furosemide and Imdur. Thank you for allowing us to participate in the care of Mr. Cardenas, further orders forthcoming as hospitalization evolves. HPI Consult Data Date of Consult: 07/11/23 HPI Narrative HPI Narrative: JODIE CARDENAS, is a 83 M with past medical history significant for hypertension, A- fib, diabetes mellitus type 2, CKD stage IV secondary diabetic nephropathy who is currently in rehab unit receiving therapy after he was admitted to the hospital after presenting to the emergency room for increased confusion and garbled speech; he was initially admitted to the hospital for acute encephalopat hy/TIA with etiology unclear, suspected unwitnessed seizure at home. Nephrology consulted as patient has history of chronic kidney disease stage IV. Patient is followed by Dr. Han. Patient reports he cannot recall when last seen by his cash poster. In reviewing past serum creatinine trends, baseline creatinine ranging around 2.4 to 2.7 mg/dL. Patient denies any recent nausea, vomiting or diarrhea. Reports has good appetite. No recent overnight events. [facility] Medical History Acute exacerbation of CHF (congestive heart failure) Acute on chronic diastolic (congestive) heart failure Acute respiratory failure with hypoxia Anemia Atherosclerosis of coronary artery bypass graft without angina pectoris Atherosclerosis of coronary artery of [place] heart without angina pectoris Atrial fibrillation with rapid ventricular response (07/11/16) Cholecystitis Chronic combined systolic and diastolic CHF (congestive heart failure) Chronic renal failure, stage 3 (moderate) Chronic respiratory failure with hypoxia COPD (chronic obstructive pulmonary disease) Essential (primary) hypertension Hyperlipemia Left bundle branch block Localized edema Lymphedema Morbid obesity with BMI of 45.0-49.9, adult Non-rheumatic aortic stenosis Obstructive sleep apnea Ocular migraine Paroxysmal atrial fibrillation Restrictive airway disease Right lower lobe pneumonia Sepsis TIA (transient ischemic attack) Type 2 diabetes mellitus without complications Venous insufficiency of both lower extremities Home Medications aspirin 81 mg tablet,delayed release 81 mg PO DAILY HEART HEALTH 07/11/16 [History Last Taken 07/03/23] atorvastatin 40 mg tablet 40 mg PO QHS CHOLSTEROL 07/11/16 [History Last Taken 01/29/20] multivitamin 1 ea PO DAILY HEALTH MAINTENANCE 07/11/16 [History Last Taken 07/03/23] insulin regular human 100 unit/mL injection solution 25 unit subcut BID DIABETES 07/24/16 [History Last Taken 07/02/23] cholecalciferol (vitamin D3) 25 mcg (1,000 unit) tablet 25 mcg PO DAILY SUPPLEMENT 10/26/16 [History Last Taken 07/03/23] sertraline 25 mg tablet 25 mg PO DAILY DEPRESSION 01/10/18 [History Last Taken 07/03/23] insulin NPH isoph U-100 human 100 unit/mL subcutaneous suspension 25 unit subcut BID DIABETES 03/08/18 [History Last Taken 07/03/23] famotidine 20 mg tablet 20 mg PO DAILY GERD 11/13/19 [History Last Taken 07/03/23] olanzapine 2.5 mg tablet 2.5 mg PO QHS DEPRESSION 11/13/19 [History Last Taken 07/02/23] allopurinol 300 mg tablet 150 mg PO DAILY GOUT 12/07/21 [History Last Taken 07/03/23] apixaban 2.5 mg tablet (Eliquis) 2.5 mg PO BID BLOOD THINNER 10/07/22 [History Last Taken 07/03/23] calcitriol 0.25 mcg capsule 0.5 mcg PO MOWEFR SUPPLEMENT 10/07/22 [History Last Taken 07/01/23] isosorbide mononitrate 30 mg tablet,extended release 24 hr 30 mg PO DAILY HEART #90 tabs 03/07/23 [Rx Last Taken 07/03/23] furosemide 40 mg tablet (Lasix) 40 mg PO QODAY water pill #1 TAB 07/03/23 [Rx Last Taken Unknown] levetiracetam 500 mg tablet 500 mg PO BID seizures #0 tabs 07/03/23 [Rx Last Taken Unknown] potassium chloride 20 mEq tablet,extended release 20 meq PO DAILY potassium #1 TAB 07/03/23 [Rx Last Taken Unknown] psyllium husk (aspartame) 3 gram oral powder packet (Daily Fiber (psyllium- aspartame)) 1 packet PO BID constipation #0 ea 07/03/23 [Rx Last Taken 07/03/23] Allergy/AdvReac Type Severity Reaction Status Date / Time Penicillins [PCN] Allergy Swelling Verified 01/31/23 15:29 Family History Father Myocardial infarction Mother CVA (cerebral vascular accident) Brother CAD (coronary artery disease) Diabetes Surgical History H/O aortic valve replacement (02/24/16) H/O coronary artery bypass surgery (02/24/16) Hx of cholecystectomy (01/13/17) Social History (Updated 07/03/23 @ 20:[address] Jeremy Magallanes MD) household members: family and other details: Granddaughter. Smoking Status: Unknown if ever smoked how long ago did patient quit smokin + years alcohol intake: never substance use type: does not use caffeine: Yes Type: carbonated beverages and tea ROS ROS Narrative As in HPI and past medical history Physical Exam Narrative Alert and oriented x3, no apparent distress S1, S2, rhythm irregular, rate controlled Lung sounds clear anteriorly and posteriorly. No wheezes rhonchi rales noted Abdomen soft, rounded, positive bowel sounds, nontender Trace edema noted bilateral lower legs Lab / Micro Data 07/11/23 05:24 07/11/23 05:24 Labs: Laboratory Results - last 24 hr 07/10/23 11:37: POC Glucose 121 H 07/10/23 17:04: POC Glucose 149 H 07/10/23 21:18: POC Glucose 175 H 07/11/23 05:24: WBC 9.1, RBC 3.18 L, Hgb 10.2 L, Hct 31.8 L, MCV 100.0 H, MCH 32.1 H, MCHC 32.1, RDW Std Deviation 53.7 H, RDW Coeff of Yen[place] 15.2 H, Plt Count 161, MPV 10.5, Immature Gran % (Auto) 0.400, Neut % (Auto) 76.7 H, Lymph % (Auto) 9.8 L, [place] % (Auto) 9.5, Eos % (Auto) 3.2, Baso % (Auto) 0.4, Absolute Neuts (auto) 7.0, Absolute Lymphs (auto) 0.89, Nucleated RBC % 0, Sodium 136, Potassium 5.0, Chloride 109 H, Carbon Dioxide 20.0 L, Anion Gap 7, BUN 67 H, Creatinine 2.41 H, Estim Creat Clear Calc 20.56, Est GFR (MDRD) Af Amer 33 L, Est GFR (MDRD) Non-Af 28 L, BUN/Creatinine Ratio 27.8 H, Glucose 141 H, Calcium 9.0 07/11/23 06:21: POC Glucose 132 H
[2023-07-11 11:58] LABS: Bedside Glucose 167 mg/dL (74-106)
[2023-07-11 15:16] VITALS: BP 136/60; PULSE 75; RESP 23; TEMP 36.6; O2SAT 86
[2023-07-11] MEDS: LORazepam 0.5 MG Tablet PO (15:29)
--- NOTE | 2023-07-11 15:48 | WOUNDNOTE ---
wound photo: left lower leg
--- NOTE | 2023-07-11 15:49 | WOUNDNOTE ---
wound photo: left posterior lower leg
--- NOTE | 2023-07-11 15:50 | WOUNDNOTE ---
wound photo: right lower leg
--- NOTE | 2023-07-11 15:50 | WOUNDNOTE ---
wound photo: right arm
--- NOTE | 2023-07-11 16:03 | NURSING ---
pt given ativan d/t restlessness, several attempts getting up on own w/out staff assist. assisted pt to ambulate with chair follow. pt ambulated from main lobby to TCU room 2, then needed to sit in recliner. pt back in lobby watching tV. alarm in place.
[2023-07-11 17:43] LABS: Bedside Glucose 138 mg/dL (74-106)
--- NOTE | 2023-07-11 18:33 | NURSING ---
Large Ecchymotic area noted to left flank, small fluid filler blister noted to area. abdomen with multiple scattered ecchymotic areas.
[2023-07-11] MEDS: LORazepam 1 MG Tablet PO (19:40)
--- NOTE | 2023-07-11 19:51 | NURSING ---
Addendum entered by Rina Bland 07/11/23 20:36: Presents in TCU common area, no restlessness observed at this time. Pressure alarm in place per order and franco within reach to request assist from staff. No distress observed or reported at this time. O2 on via NC at 4LPM. Respirations even and unlabored. Original Note: PRN Ativan administered as ordered for patient restlessness/anxiety. Pt. yelling out at times. Non-pharmacologic interventions ineffective. Patient sitting in recliner at TCU common area with staff supervision.
[2023-07-11] MEDS: Atorvastatin Calcium 40 MG Tablet PO (20:16)
[2023-07-11] MEDS: OLANZapine 2.5 MG Tablet PO (20:16)
[2023-07-11 21:36] LABS: Bedside Glucose 151 mg/dL (74-106)
[2023-07-11 22:00] VITALS: RESP 16
[2023-07-11 22:30] VITALS: PULSE 104; RESP 18; O2SAT 93
[2023-07-12] MEDS: Nystatin Powder 15gm Bottle 1 APPLIC TOPICAL ×2 (05:26→19:58)
[2023-07-12] MEDS: Sertraline 50 MG Tablet 25 MG PO (05:37)
[2023-07-12] MEDS: Famotidine 20 MG Tablet PO (05:37)
[2023-07-12] MEDS: levoFLOXacin 750 MG Tablet PO (05:37)
[2023-07-12] MEDS: Psyllium 1 PACKET PO ×2 (05:37→17:42)
[2023-07-12] MEDS: Isosorbide Mononitrate 30 MG Tablet PO (05:37)
[2023-07-12] MEDS: Cholecalciferol (VIT D3) 25 MCG TABLET (1,000 UNITS) PO (05:37)
[2023-07-12] MEDS: levETIRAcetam 500 MG Tablet PO ×2 (05:38→17:42)
[2023-07-12] MEDS: APIXABAN 2.5 MG TABLET (WCH) PO ×2 (05:38→17:42)
[2023-07-12 06:00] VITALS: BP 150/62; PULSE 76; RESP 18
[2023-07-12 06:32] LABS: Bedside Glucose 76 mg/dL (74-106)
--- NOTE | 2023-07-12 06:59 | NURSING ---
Patient continues to hallucinate frequently, confusion continuous, alert to self, max 2 assist with transfers. O2 via NC at 4LPM, incontinent of b/b. Max 2 assist with bed mobility. Written communication left for Dr. Magallanes review this AM regarding above information. Resps even and unlabored. Unable to lie flat. Becomes SOB with exertion. Pressure alarm in place and functioning properly. Call light in reach.
[2023-07-12] MEDS: Multivitamins,Therapeutic Tablet 1 TABLET PO (08:40)
[2023-07-12] MEDS: Menthol/Lanolin/Calamine/Znox 113 GM Tube 1 APPLIC TOPICAL ×2 (08:40→17:43)
[2023-07-12] MEDS: Furosemide 40 MG Tablet PO (08:41)
[2023-07-12] MEDS: Allopurinol 300 MG Tablet 150 MG PO (08:41)
[2023-07-12 09:42] LABS: BNP,B-Type NATRIURETIC PEPTIDE 174.5 pg/mL (0-100)
[2023-07-12 10:28] VITALS: BMI 43.4
[2023-07-12 11:16] LABS: Bedside Glucose 82 mg/dL (74-106)
[2023-07-12 14:40] VITALS: BP 144/78; PULSE 72; RESP 14; TEMP 35.9; O2SAT 95
[2023-07-12 15:51] VITALS: O2SAT 85; O2SAT 93
[2023-07-12 17:00] VITALS: O2SAT 96
[2023-07-12 17:11] LABS: Bedside Glucose 86 mg/dL (74-106)
[2023-07-12] MEDS: OLANZapine 2.5 MG Tablet PO (19:54)
[2023-07-12] MEDS: Acetaminophen 500 MG Tablet 1000 MG PO (19:55)
[2023-07-12] MEDS: LORazepam 1 MG Tablet PO (19:55)
[2023-07-12] MEDS: Atorvastatin Calcium 40 MG Tablet PO (19:55)
[2023-07-12 21:50] LABS: Bedside Glucose 108 mg/dL (74-106)
[2023-07-13 06:40] LABS: Bedside Glucose 98 mg/dL (74-106)
[2023-07-13] MEDS: Psyllium 1 PACKET PO ×2 (06:42→17:04)
[2023-07-13] MEDS: Calcitriol 0.25 MCG Capsule 0.5 MCG PO (06:42)
[2023-07-13] MEDS: Sertraline 50 MG Tablet 25 MG PO (06:42)
[2023-07-13] MEDS: APIXABAN 2.5 MG TABLET (WCH) PO ×2 (06:43→17:02)
[2023-07-13] MEDS: Famotidine 20 MG Tablet PO (06:43)
[2023-07-13] MEDS: levETIRAcetam 500 MG Tablet PO ×2 (06:43→17:04)
[2023-07-13] MEDS: Furosemide 40 MG Tablet PO (06:43)
[2023-07-13] MEDS: Cholecalciferol (VIT D3) 25 MCG TABLET (1,000 UNITS) PO (06:43)
[2023-07-13] MEDS: Isosorbide Mononitrate 30 MG Tablet PO (06:43)
[2023-07-13] MEDS: Menthol/Lanolin/Calamine/Znox 113 GM Tube 1 APPLIC TOPICAL ×2 (06:50→17:04)
[2023-07-13] MEDS: Nystatin Powder 15gm Bottle 1 APPLIC TOPICAL ×2 (06:50→17:04)
[2023-07-13] MEDS: Allopurinol 300 MG Tablet 150 MG PO (08:18)
[2023-07-13] MEDS: Multivitamins,Therapeutic Tablet 1 TABLET PO (08:18)
[2023-07-13 11:48] LABS: Bedside Glucose 118 mg/dL (74-106)
[2023-07-13 13:15] VITALS: O2SAT 97
[2023-07-13 14:19] VITALS: BP 156/66; PULSE 78; RESP 18; TEMP 36.1; O2SAT 94
[2023-07-13 16:19] LABS: Bedside Glucose 140 mg/dL (74-106)
[2023-07-13] MEDS: LORazepam 1 MG Tablet PO ×2 (17:02→22:42)
[2023-07-13] MEDS: Insulin NPH Human 100 UNITS/ML PEN SC (17:03)
[2023-07-13 21:56] LABS: Bedside Glucose 173 mg/dL (74-106)
[2023-07-13] MEDS: Atorvastatin Calcium 40 MG Tablet PO (22:43)
[2023-07-13] MEDS: OLANZapine 2.5 MG Tablet PO (22:43)
[2023-07-14 06:21] LABS: Anion Gap 4 (5-15); BUN 69 mg/dL (7-18); BUN/Creat Ratio 27.2 RATIO (10-20); Calcium,Total 9.1 mg/dL (8.5-10.1); Chloride 113 mmol/L (98-107); Creatinine, Serum 2.54 mg/dL (0.70-1.30); EST Glomerular Filtration Rate 26 mL/min (>60); Est Glom Filt Rate - Afr Amer 31 mL/min (>60); Glucose 139 mg/dL (74-106); Potassium 4.3 mmol/L (3.5-5.1); Sodium Level 140 mmol/L (136-145)
[2023-07-14] MEDS: Menthol/Lanolin/Calamine/Znox 113 GM Tube 1 APPLIC TOPICAL ×2 (06:31→17:52)
[2023-07-14] MEDS: levETIRAcetam 500 MG Tablet PO ×2 (06:32→17:52)
[2023-07-14] MEDS: Psyllium 1 PACKET PO ×2 (06:32→17:52)
[2023-07-14] MEDS: APIXABAN 2.5 MG TABLET (WCH) PO ×2 (06:32→17:52)
[2023-07-14] MEDS: Furosemide 40 MG Tablet PO (06:32)
[2023-07-14] MEDS: Isosorbide Mononitrate 30 MG Tablet PO (06:32)
[2023-07-14] MEDS: Sertraline 50 MG Tablet 25 MG PO (06:32)
[2023-07-14] MEDS: Nystatin Powder 15gm Bottle 1 APPLIC TOPICAL ×2 (06:33→20:15)
[2023-07-14] MEDS: Cholecalciferol (VIT D3) 25 MCG TABLET (1,000 UNITS) PO (06:33)
[2023-07-14] MEDS: levoFLOXacin 750 MG Tablet PO (06:33)
[2023-07-14] MEDS: Famotidine 20 MG Tablet PO (06:33)
[2023-07-14 06:39] LABS: Bedside Glucose 130 mg/dL (74-106)
[2023-07-14 06:58] VITALS: BP 108/75; PULSE 76; RESP 16; O2SAT 100
[2023-07-14 07:50] VITALS: O2SAT 96
[2023-07-14] MEDS: Insulin NPH Human 100 UNITS/ML PEN SC ×2 (07:53→17:50)
[2023-07-14] MEDS: Multivitamins,Therapeutic Tablet 1 TABLET PO (07:55)
[2023-07-14] MEDS: Allopurinol 300 MG Tablet 150 MG PO (07:55)
--- NOTE | 2023-07-14 08:45 | MDS.RN ---
Information for the mds was obtained from review of the clinical record, interview of resident, staff, and direct observation of resident's care.
--- NOTE | 2023-07-14 10:29 | PN.RENAL_ITS ---
Subjective Subjective Following for CKD Patient resting quietly. No complaints. No overnight events. Daughter at bedside. Objective Data Objective Data Vital Signs: Vital Signs Temp Pulse Resp BP Pulse Ox O2 Del Method O2 Flow Rate 97.0 F L 76 16 108/75 100 Nasal Cannula 4 07/13/23 14:19 07/14/23 06:58 07/14/23 06:58 07/14/23 06:58 07/14/23 06:58 07/14/23 06:58 07/14/23 06:58 FiO2 92 07/04/23 19:55 Oxygen Flow Rate (L/min) [At 4 REST with Oxygen] Oxygen Flow Rate (L/min) 4 Oxygen Delivery Method Nasal Cannula Weight: 118.614 kg Body Mass Index (BMI) 43.4 Intake & Output: Intake and Output for Last 24 Hours 07/12/23 07/13/23 07/14/23 23:59 23:59 23:59 Intake Total 240 / 240 600 / 600 0 / 0 Balance 240 / 240 600 / 600 0 / 0 Lab / Micro Data 07/11/23 05:24 07/14/23 05:36 Labs: Laboratory Results - last 24 hr 07/13/23 11:29: POC Glucose 118 H 07/13/23 15:50: POC Glucose 140 H 07/13/23 21:22: POC Glucose 173 H 07/14/23 05:36: Sodium 140, Potassium 4.3, Chloride 113 H, Carbon Dioxide 23.0, Anion Gap 4 L, BUN 69 H, Creatinine 2.54 H, Estim Creat Clear Calc 19.50, Est GFR (MDRD) Af Amer 31 L, Est GFR (MDRD) Non-Af 26 L, BUN/Creatinine Ratio 27.2 H , Glucose 139 H, Calcium 9.1 07/14/23 06:15: POC Glucose 130 H Micro: Microbiology 07/07/23 09:00 Urine Catheter - Catheter Urine Culture - Final Culture exhibits no growth. 07/05/23 Unknown Stool Stool Occult Blood (AYUSH) - Final Physical Exam Narrative Alert and oriented x3, no apparent distress S1, S2, rhythm irregular, rate controlled Lung sounds clear anteriorly and posteriorly. No wheezes, rhonchi or rales noted Abdomen soft, rounded, positive bowel sounds, nontender Trace edema noted bilateral lower legs Assessment & Plan Assessment/Plan (1) CKD (chronic kidney disease) stage 4, GFR 15-29 ml/min: PLAN: Plan This is a pleasant 83-year-old male with past medical history significant for diabetes mellitus type 2, hypertension, COPD, A-fib, CKD stage IV who is currently in rehab unit receiving therapy after recent hospitalization for TIA/acute encephalopathy. Patient had MRI no evidence of stroke; CT of brain showed no acute bleed or acute process. Nephrology consulted as patient has history of chronic kidney disease. Patient is followed by Dr. Han. - CKD stage IV secondary diabetic nephropathy, baseline creatinine ranging around 2.4 to 2.7 mg/dL. At this time renal function stable and at baseline, SCr 2.54mg/dL today. At time of initial hospital admission renal function at baseline. Patient is nonoliguric and appears to be near euvolemic. Potassium and acid-base acceptable. We will continue to monitor renal function periodically; patient does not need daily bmp labs. Discussed nephrology plan with patient's daughter, she reports patient does have appointment with Dr. Han. - History of HTN; blood pressures acceptable, continue lasix as ordered.
[2023-07-14 11:23] LABS: Bedside Glucose 107 mg/dL (74-106)
--- NOTE | 2023-07-14 15:11 | CASEMGMT ---
Social Work ERICA notified by nursing that physician is requesting a palliative care referral. Referral sent to [facility]. ERICA met with pt's granddgt Maria Luisa to discuss discharge plan. Maria Luisa states she lives with her grandfather and is his primary caregiver. Until most recent hospitalization pt has been able to care for himself and been able to think clearly. Pt not requiring assist of 2 for ADLs and is confused. ERICA discussed discharge options with Maria Luisa including SNF. Maria Luisa stating she does not want pt to go to SNF but is understanding that she may no longer be able to care for him at home and inquiring about Medicaid covering cost of ECF. ERICA discussed pt resources with Maria Luisa and pt is over resources and will not qualify for [facility] Medicaid and would be private pay at ECF. SW also provided information on private duty aids that pt can hire to provide needed care at home. ERICA recommended Maria Luisa speak to JFS or elder law insurance attorney to assist with proper spend down to qualify for Medicaid. Maria Luisa uncertain of what to do and requesting time to consider options. Maria Luisa also stating that pt does not have a financial POA or Healthcare POA and no one has access to pt's finances to pay for ECF or private duty aids. Pt is confused at this time and not appropriate to appoint Power of Airborne Weapons Technical Manager. Guardianship was discussed and information provided. ERICA will speak with physician to determine if pt is appropriate for guardianship. Statement of Expert Evaluation will need completed for this process to be started. ERICA will continue to follow. ANNA Gilbert
[2023-07-14 16:00] VITALS: PULSE 60; RESP 19; TEMP 35.8; O2SAT 96
[2023-07-14 16:39] LABS: Bedside Glucose 115 mg/dL (74-106)
[2023-07-14 20:00] VITALS: PULSE 70; RESP 16
[2023-07-14] MEDS: OLANZapine 2.5 MG Tablet PO (20:14)
[2023-07-14] MEDS: LORazepam 1 MG Tablet PO (20:14)
[2023-07-14] MEDS: Atorvastatin Calcium 40 MG Tablet PO (20:14)
[2023-07-14 21:30] LABS: Bedside Glucose 166 mg/dL (74-106)
[2023-07-15 06:30] LABS: Bedside Glucose 111 mg/dL (74-106)
[2023-07-15] MEDS: Sertraline 50 MG Tablet 25 MG PO (06:46)
[2023-07-15] MEDS: Psyllium 1 PACKET PO ×2 (06:46→17:58)
[2023-07-15] MEDS: Calcitriol 0.25 MCG Capsule 0.5 MCG PO (06:46)
[2023-07-15] MEDS: APIXABAN 2.5 MG TABLET (WCH) PO ×2 (06:47→17:58)
[2023-07-15] MEDS: Famotidine 20 MG Tablet PO (06:47)
[2023-07-15] MEDS: levETIRAcetam 500 MG Tablet PO ×2 (06:47→17:59)
[2023-07-15] MEDS: Isosorbide Mononitrate 30 MG Tablet PO (06:48)
[2023-07-15] MEDS: Furosemide 40 MG Tablet PO (06:49)
[2023-07-15] MEDS: Cholecalciferol (VIT D3) 25 MCG TABLET (1,000 UNITS) PO (06:53)
[2023-07-15] MEDS: Nystatin Powder 15gm Bottle 1 APPLIC TOPICAL ×2 (06:54→18:00)
[2023-07-15] MEDS: Menthol/Lanolin/Calamine/Znox 113 GM Tube 1 APPLIC TOPICAL ×2 (06:54→18:00)
[2023-07-15 07:02] VITALS: BP 130/78; PULSE 74
[2023-07-15 08:00] VITALS: O2SAT 95
[2023-07-15 09:42] VITALS: BMI 43.2
[2023-07-15] MEDS: Insulin NPH Human 100 UNITS/ML PEN SC ×2 (10:12→17:58)
[2023-07-15] MEDS: Allopurinol 300 MG Tablet 150 MG PO (10:13)
[2023-07-15] MEDS: Multivitamins,Therapeutic Tablet 1 TABLET PO (10:14)
--- NOTE | 2023-07-15 11:36 | CASEMGMT ---
Social Work Physician completed Statement of Expert Evaluation for Guardianship. ERICA met with pt's granddgt Maria Luisa and updated and explained she will need to contact an supervisor audit clerks who will assist her in applying for guardianship. ERICA strongly encouraged her to call to day as this process needs started immediately and requested supervisor audit clerks be notified that pt is in the hospital and will need to be completed emergently. ERICA provided names of local attorneys who provide this service. Maria Luisa understanding and agreeable to start process today. ERICA spoke with Maria Luisa regarding dc plan and she feels pt will need ECF. Pt does not qualify for Medicaid and therefore will be private pay. Pt will need to pay up front prior to admission, however pt is not capable of handling finances and Maria Luisa will need guardianship to have access to pts finances. ERICA provided a list of ECF providers with quality and resource use data. Maria Luisa will review list and make ECF choice but is aware that guardianship will need started prior to referrals being made. ERICA will continue to follow for dc planning and support. ANNA Gilbert
[2023-07-15 11:42] LABS: Bedside Glucose 133 mg/dL (74-106)
[2023-07-15 16:00] VITALS: BP 123/61; PULSE 65; RESP 20; TEMP 35.8; O2SAT 100
[2023-07-15 17:19] LABS: Bedside Glucose 125 mg/dL (74-106)
[2023-07-15] MEDS: Atorvastatin Calcium 40 MG Tablet PO (21:00)
[2023-07-15] MEDS: OLANZapine 2.5 MG Tablet PO (21:00)
[2023-07-16] MEDS: LORazepam 1 MG Tablet PO ×4 (01:33→22:55)
[2023-07-16] MEDS: APIXABAN 2.5 MG TABLET (WCH) PO ×2 (04:45→17:05)
[2023-07-16] MEDS: Sertraline 50 MG Tablet 25 MG PO (04:45)
[2023-07-16] MEDS: Famotidine 20 MG Tablet PO (04:46)
[2023-07-16] MEDS: levoFLOXacin 750 MG Tablet PO (04:46)
[2023-07-16] MEDS: Cholecalciferol (VIT D3) 25 MCG TABLET (1,000 UNITS) PO (04:46)
[2023-07-16] MEDS: Isosorbide Mononitrate 30 MG Tablet PO (04:46)
[2023-07-16] MEDS: levETIRAcetam 500 MG Tablet PO ×2 (04:46→17:05)
[2023-07-16] MEDS: Furosemide 40 MG Tablet PO (04:47)
[2023-07-16] MEDS: Psyllium 1 PACKET PO ×2 (04:47→17:05)
[2023-07-16] MEDS: Menthol/Lanolin/Calamine/Znox 113 GM Tube 1 APPLIC TOPICAL ×2 (04:57→17:04)
[2023-07-16] MEDS: Nystatin Powder 15gm Bottle 1 APPLIC TOPICAL ×2 (04:57→17:04)
[2023-07-16 07:17] LABS: Bedside Glucose 127 mg/dL (74-106)
[2023-07-16 07:29] VITALS: O2SAT 91
[2023-07-16] MEDS: Multivitamins,Therapeutic Tablet 1 TABLET PO (07:58)
[2023-07-16] MEDS: Allopurinol 300 MG Tablet 150 MG PO (07:59)
[2023-07-16] MEDS: Insulin NPH Human 100 UNITS/ML PEN SC ×2 (08:02→17:08)
[2023-07-16 10:46] LABS: Bedside Glucose 166 mg/dL (74-106)
[2023-07-16 14:30] VITALS: BP 122/64; PULSE 73; RESP 18; TEMP 36; O2SAT 97
[2023-07-16 14:45] VITALS: BP 129/80; PULSE 71; RESP 17; TEMP 36.4; O2SAT 96
--- NOTE | 2023-07-16 14:51 | NURSING ---
1415 witnessed fall by [employer]ITION[employer] HERBALIST. Patient slid slowly to the floor from bed. Vitals obtained. Assisted patient off floor. No injuries noted. steno pool supervisor, Dr. Magallanes, and family updated.
[2023-07-16 15:00] VITALS: BP 100/56; PULSE 75; RESP 18; TEMP 36.4; O2SAT 92
[2023-07-16 16:28] LABS: Bedside Glucose 143 mg/dL (74-106)
[2023-07-16] MEDS: OLANZapine 2.5 MG Tablet PO (20:57)
[2023-07-16] MEDS: Atorvastatin Calcium 40 MG Tablet PO (20:57)
[2023-07-16 21:47] LABS: Bedside Glucose 132 mg/dL (74-106)
[2023-07-17 05:28] VITALS: BP 137/65; PULSE 77
[2023-07-17] MEDS: Furosemide 40 MG Tablet PO (05:30)
[2023-07-17] MEDS: Cholecalciferol (VIT D3) 25 MCG TABLET (1,000 UNITS) PO (05:30)
[2023-07-17] MEDS: Famotidine 20 MG Tablet PO (05:30)
[2023-07-17] MEDS: Isosorbide Mononitrate 30 MG Tablet PO (05:30)
[2023-07-17] MEDS: APIXABAN 2.5 MG TABLET (WCH) PO ×2 (05:30→16:55)
[2023-07-17] MEDS: Sertraline 50 MG Tablet 25 MG PO (05:30)
[2023-07-17] MEDS: Menthol/Lanolin/Calamine/Znox 113 GM Tube 1 APPLIC TOPICAL ×2 (05:31→16:53)
[2023-07-17] MEDS: levETIRAcetam 500 MG Tablet PO ×2 (05:31→16:53)
[2023-07-17] MEDS: Nystatin Powder 15gm Bottle 1 APPLIC TOPICAL ×2 (05:31→16:53)
[2023-07-17] MEDS: Psyllium 1 PACKET PO ×2 (05:31→16:53)
[2023-07-17 06:34] LABS: Bedside Glucose 105 mg/dL (74-106)
[2023-07-17 07:57] VITALS: O2SAT 91
[2023-07-17] MEDS: Allopurinol 300 MG Tablet 150 MG PO (08:49)
[2023-07-17] MEDS: Multivitamins,Therapeutic Tablet 1 TABLET PO (08:50)
[2023-07-17 11:09] LABS: Bedside Glucose 101 mg/dL (74-106)
[2023-07-17 14:54] VITALS: BP 135/76; PULSE 61; RESP 15; TEMP 35.6; O2SAT 94
[2023-07-17 16:26] LABS: Bedside Glucose 99 mg/dL (74-106)
[2023-07-17] MEDS: OLANZapine 2.5 MG Tablet PO (20:41)
[2023-07-17] MEDS: Atorvastatin Calcium 40 MG Tablet PO (20:42)
[2023-07-17 20:45] VITALS: PULSE 70; RESP 20; O2SAT 99
[2023-07-17 21:22] LABS: Bedside Glucose 109 mg/dL (74-106)
[2023-07-18 05:50] LABS: Absolute Lymphocyte Count 1.34 X10^3/uL (0.83-4.51); Absolute Neutrophil Count 5.4 X10^3/uL (2.0-7.7); Basophil# 0.04 X10^3/uL; Basophil% 0.5 % (0-1); Eosinophil# 0.31 X10^3/uL; Hematocrit 28.8 % (40-54); Hemoglobin 8.9 g/dL (13.0-16.5); Lymphocyte # 1.34 X10^3/ul (0.83-4.51); Lymphocyte % 17.4 % (19-41); Mean Corp Hgb Conc 30.9 g/dL (32-36); Mean Corpuscular Hgb 31.4 pg (27.0-32.0); Mean Corpuscular Volume 101.8 fL (80-94); Mean Platelet Vol. 10.1 fl (6.2-12.0); Monocyte# 0.57 X10^3/uL; Monocyte% 7.4 % (0-10); NRBC Flagged by Analyzer 0 % (0-5); Neutrophil # 5.43 X10^3/uL (2.7-7.7); Neutrophil % 70.3 % (47-70); Platelet Count 132 K/mm3 (150-450); RBC Distribution Width CV 15.3 % (11.6-14.6); RBC Distribution Width SD 56.7 fl (35.1-43.9); Red Blood Count 2.83 M/mm3 (4.6-6.2); White Blood Count 7.7 K/mm3 (4.4-11.0)
[2023-07-18 06:26] LABS: Anion Gap 4 (5-15); BUN 80 mg/dL (7-18); BUN/Creat Ratio 33.1 RATIO (10-20); Calcium,Total 9.1 mg/dL (8.5-10.1); Chloride 115 mmol/L (98-107); Creatinine, Serum 2.42 mg/dL (0.70-1.30); EST Glomerular Filtration Rate 27 mL/min (>60); Est Glom Filt Rate - Afr Amer 33 mL/min (>60); Estimated Creatinine Clearance 20.47 ml/min; Glucose 89 mg/dL (74-106); Potassium 4.2 mmol/L (3.5-5.1); Sodium Level 143 mmol/L (136-145)
[2023-07-18] MEDS: levETIRAcetam 500 MG Tablet PO ×2 (06:33→17:46)
[2023-07-18] MEDS: Sertraline 50 MG Tablet 25 MG PO (06:33)
[2023-07-18] MEDS: Cholecalciferol (VIT D3) 25 MCG TABLET (1,000 UNITS) PO (06:33)
[2023-07-18] MEDS: Famotidine 20 MG Tablet PO (06:33)
[2023-07-18] MEDS: Nystatin Powder 15gm Bottle 1 APPLIC TOPICAL ×2 (06:34→17:48)
[2023-07-18] MEDS: Calcitriol 0.25 MCG Capsule 0.5 MCG PO (06:34)
[2023-07-18] MEDS: Furosemide 40 MG Tablet PO (06:34)
[2023-07-18] MEDS: Psyllium 1 PACKET PO ×2 (06:34→17:45)
[2023-07-18] MEDS: Isosorbide Mononitrate 30 MG Tablet PO (06:35)
[2023-07-18] MEDS: APIXABAN 2.5 MG TABLET (WCH) PO ×2 (06:35→17:45)
[2023-07-18] MEDS: Menthol/Lanolin/Calamine/Znox 113 GM Tube 1 APPLIC TOPICAL ×2 (06:35→17:45)
[2023-07-18 06:41] LABS: Bedside Glucose 80 mg/dL (74-106)
[2023-07-18 06:42] VITALS: BP 132/64; PULSE 69
[2023-07-18] MEDS: Allopurinol 300 MG Tablet 150 MG PO (08:23)
[2023-07-18] MEDS: Multivitamins,Therapeutic Tablet 1 TABLET PO (08:23)
[2023-07-18 09:05] VITALS: O2SAT 90
[2023-07-18 11:17] LABS: Bedside Glucose 123 mg/dL (74-106)
[2023-07-18 12:52] VITALS: O2SAT 95
[2023-07-18 14:04] VITALS: BP 145/67; PULSE 69; RESP 16; TEMP 36.3; O2SAT 93
[2023-07-18 16:25] VITALS: BMI 42.7
[2023-07-18 16:52] LABS: Bedside Glucose 122 mg/dL (74-106)
[2023-07-18] MEDS: Atorvastatin Calcium 40 MG Tablet PO (20:08)
[2023-07-18] MEDS: OLANZapine 2.5 MG Tablet PO (20:08)
[2023-07-18 21:50] LABS: Bedside Glucose 141 mg/dL (74-106)
[2023-07-19] MEDS: Psyllium 1 PACKET PO ×2 (04:33→17:51)
[2023-07-19] MEDS: Famotidine 20 MG Tablet PO (04:37)
[2023-07-19] MEDS: Cholecalciferol (VIT D3) 25 MCG TABLET (1,000 UNITS) PO (04:38)
[2023-07-19] MEDS: Sertraline 50 MG Tablet 25 MG PO (04:38)
[2023-07-19] MEDS: Isosorbide Mononitrate 30 MG Tablet PO (04:38)
[2023-07-19] MEDS: levETIRAcetam 500 MG Tablet PO ×2 (04:39→17:51)
[2023-07-19] MEDS: APIXABAN 2.5 MG TABLET (WCH) PO ×2 (04:39→17:51)
[2023-07-19] MEDS: Furosemide 40 MG Tablet PO (04:39)
[2023-07-19] MEDS: Nystatin Powder 15gm Bottle 1 APPLIC TOPICAL ×2 (04:40→17:51)
[2023-07-19] MEDS: Menthol/Lanolin/Calamine/Znox 113 GM Tube 1 APPLIC TOPICAL ×2 (04:40→17:51)
[2023-07-19 05:36] VITALS: BP 161/68; PULSE 75
[2023-07-19 06:57] LABS: Bedside Glucose 115 mg/dL (74-106)
[2023-07-19 07:48] VITALS: O2SAT 91
[2023-07-19] MEDS: Allopurinol 300 MG Tablet 150 MG PO (08:35)
[2023-07-19] MEDS: Multivitamins,Therapeutic Tablet 1 TABLET PO (08:36)
[2023-07-19] MEDS: Insulin NPH Human 100 UNITS/ML PEN SC ×2 (08:45→17:52)
[2023-07-19 11:34] LABS: Bedside Glucose 149 mg/dL (74-106)
--- NOTE | 2023-07-19 11:40 | CASEMGMT ---
Social Work SW met with pt grand daughter Maria Luisa who states she did reach out to an [employer] on Tuesday to discuss proceding with Guardianship. The office was to make a decision if they could assist pt and call Maria Luisa back. Today Maria Luisa states she has not heard back from them. ERICA encouraged her to followup with a phone call today. This SW placed call to [employer] office and left VM requesting return call to Maria Luisa or to this SW with questions and explained urgency of getting Guardianship process started. ANNA Gilbert
--- NOTE | 2023-07-19 14:37 | PN.RENAL_ITS ---
Subjective Subjective No overnight events. Sitting in chair. Objective Data Objective Data Vital Signs: Vital Signs Temp Pulse Resp BP Pulse Ox O2 Del Method O2 Flow Rate 97.4 F L 75 16 161/68 H 91 Nasal Cannula 4 07/18/23 14:04 07/19/23 05:36 07/18/23 14:04 07/19/23 05:36 07/19/23 07:48 07/19/23 07:48 07/19/23 13:26 FiO2 92 07/04/23 19:55 Oxygen Flow Rate (L/min) [At 4 REST with Oxygen] Oxygen Flow Rate (L/min) 4 Oxygen Delivery Method Nasal Cannula Weight: 116.29 kg Body Mass Index (BMI) 42.7 Intake & Output: Intake and Output for Last 24 Hours 07/17/23 07/18/23 07/19/23 23:59 23:59 23:59 Intake Total 120 / 120 840 / 840 720 / 720 Balance 120 / 120 840 / 840 720 / 720 Lab / Micro Data 07/18/23 05:31 07/18/23 05:31 Labs: Laboratory Results - last 24 hr 07/18/23 16:31: POC Glucose 122 H 07/18/23 21:31: POC Glucose 141 H 07/19/23 06:31: POC Glucose 115 H 07/19/23 11:17: POC Glucose 149 H Micro: Microbiology 07/07/23 09:00 Urine Catheter - Catheter Urine Culture - Final Culture exhibits no growth. 07/05/23 Unknown Stool Stool Occult Blood (AYUSH) - Final Physical Exam Narrative Alert and oriented x3, no apparent distress S1, S2, rhythm irregular, rate controlled Lung sounds clear anteriorly. No audible wheezing Abdomen soft, rounded, positive bowel sounds, nontender Trace edema noted bilateral lower legs Assessment & Plan Assessment/Plan (1) CKD (chronic kidney disease) stage 4, GFR 15-29 ml/min: PLAN: Plan This is a pleasant 83-year-old male with past medical history significant for diabetes mellitus type 2, hypertension, COPD, A-fib, CKD stage IV who is curre ntly in rehab unit receiving therapy after recent hospitalization for TIA/acute encephalopathy. Patient had MRI no evidence of stroke; CT of brain showed no acute bleed or acute process. Nephrology consulted as patient has history of chronic kidney disease. Patient is followed by Dr. Han. - CKD stage IV secondary diabetic nephropathy, baseline creatinine ranging around 2.4 to 2.7 mg/dL. At this time renal function stable and at baseline, SCr 2.42/dL. Renal function stable during hospitalization. At time of initial hospital admission renal function at baseline. Patient is nonoliguric and appears to be near euvolemic. Continue lasix. Potassium and acid-base acceptable. We will continue to monitor renal function periodically; patient does not need daily bmp labs. Per daughter patient does have appointment with Dr. Han. - History of HTN; blood pressures acceptable.
[2023-07-19 14:54] VITALS: BMI 42.7
--- NOTE | 2023-07-19 14:59 | WOUNDNOTE ---
wound photo: left lower leg
--- NOTE | 2023-07-19 14:59 | WOUNDNOTE ---
wound photo: bilateral lower legs
--- NOTE | 2023-07-19 15:01 | WOUNDNOTE ---
wound photo: left forearm
--- NOTE | 2023-07-19 15:02 | WOUNDNOTE ---
wound photo: right forearm
--- NOTE | 2023-07-19 15:59 | RAD_ITS ---
INDICATION: Suspect aspiration EXAMINATION/TECHNIQUE: X-RAY - XR Chest 2 Views COMPARISON: Chest radiograph 07/08/2023. Findings: Frontal and lateral views of the chest. Suboptimal secondary to body habitus. LUNG PARENCHYMA: Streaky bibasilar atelectasis versus other airspace disease. PLEURA: There may be small left pleural effusion pleural effusion. No pneumothorax. HEART/GREAT VESSELS: Cardiomediastinal silhouette is enlarged. Prosthetic valve. BONES: Median sternotomy wires. RAD/Chest PA and Lateral IMPRESSION: Streaky bibasilar atelectasis versus other airspace disease, to include developing pneumonia. Possible small left pleural effusion. Electronically Signed: Kanu Darnell MD at 6:05 EDT ,
[2023-07-19 16:00] VITALS: BP 144/54; PULSE 70; RESP 18; TEMP 36.3; O2SAT 95
[2023-07-19 16:53] LABS: Bedside Glucose 174 mg/dL (74-106)
--- NOTE | 2023-07-19 17:37 | CASEMGMT ---
Social Work Referral has been made to Palliative Medicine. Consultation set up with adam arnett for Friday 07/20 at 1030 ANNA Gilbert
[2023-07-19 20:20] VITALS: PULSE 67; RESP 18; O2SAT 95
[2023-07-19] MEDS: OLANZapine 2.5 MG Tablet PO (20:38)
[2023-07-19] MEDS: Atorvastatin Calcium 40 MG Tablet PO (20:38)
[2023-07-19] MEDS: LORazepam 1 MG Tablet PO (20:39)
[2023-07-19 22:00] LABS: Bedside Glucose 180 mg/dL (74-106)
[2023-07-20] MEDS: LORazepam 1 MG Tablet PO ×2 (00:50→17:23)
[2023-07-20] MEDS: Furosemide 40 MG Tablet PO (04:49)
[2023-07-20] MEDS: levETIRAcetam 500 MG Tablet PO ×2 (04:49→17:22)
[2023-07-20] MEDS: Cholecalciferol (VIT D3) 25 MCG TABLET (1,000 UNITS) PO (04:49)
[2023-07-20] MEDS: Calcitriol 0.25 MCG Capsule 0.5 MCG PO (04:49)
[2023-07-20] MEDS: Famotidine 20 MG Tablet PO (04:49)
[2023-07-20] MEDS: APIXABAN 2.5 MG TABLET (WCH) PO ×2 (04:50→17:22)
[2023-07-20] MEDS: Sertraline 50 MG Tablet 25 MG PO (04:50)
[2023-07-20] MEDS: Psyllium 1 PACKET PO ×2 (04:50→17:23)
[2023-07-20] MEDS: Isosorbide Mononitrate 30 MG Tablet PO (04:50)
[2023-07-20] MEDS: Nystatin Powder 15gm Bottle 1 APPLIC TOPICAL ×2 (05:00→17:30)
[2023-07-20] MEDS: Menthol/Lanolin/Calamine/Znox 113 GM Tube 1 APPLIC TOPICAL ×2 (05:00→17:30)
[2023-07-20 06:28] LABS: Bedside Glucose 142 mg/dL (74-106)
[2023-07-20 07:45] VITALS: O2SAT 95
[2023-07-20] MEDS: Multivitamins,Therapeutic Tablet 1 TABLET PO (08:31)
[2023-07-20] MEDS: Allopurinol 300 MG Tablet 150 MG PO (08:31)
[2023-07-20] MEDS: Insulin NPH Human 100 UNITS/ML PEN SC ×2 (08:32→17:22)
[2023-07-20] MEDS: Clindamycin HCl 150 MG Capsule 300 MG PO ×3 (10:24→20:49)
--- NOTE | 2023-07-20 10:42 | SP.MBSS_ITS ---
Modified Barium Swallow Patient Information Study Date: 07/20/23 Study Time: 09:15 Direct Billable Minutes: 135 Total Minutes procedure & reportin Diagnosis: oropharyngeal dysphagia (R13.12) Referring Physician: Jeremy Magallanes Chi Reason for Referral: Objective assessment of swallow function under fluoroscopy recommended d/t presence of overt aspiration w/ PO intake - further assessment requires to determine appropriate diet level and interventions necessary. Medical History: 06/29/2023 JODIE SILVERIO, is a 83 Male who presents to [facility] Emergency Department with stroke alert. 06/29/2023 EKG atrial fibrillation with slow ventricular response, left bundle branch block. Sometimes forgetful sleeping in chair, confused. Acting out of character, intermittent confusion, slurring words. Expressive aphasia, dysarthria, confusion. Symptoms improving, NIH 1, not TPA candidate. MRI brain negative for stroke, ammonia level normal, ABG okay. Hallucinating, Ativan given last night. Etiology of confusion unclear. 07/01/2023 Confused, but able to feed himself. SNF recommended. PT/OT. 07/02/2023 More alert, able to carry conversation. Keppra increased to 500mg bid for seizure disorder. 07/03/2023 Admit to TCU with debility, here for rehabilitation, strengthening, prior to discharge home with granddaughter. Past Medical History: Acute exacerbation of CHF (congestive heart failure) Acute on chronic diastolic (congestive) heart failure Acute respiratory failure with hypoxia Anemia Atherosclerosis of coronary artery bypass graft without angina pectoris Atherosclerosis of coronary artery of kake heart without angina pectoris Atrial fibrillation with rapid ventricular response (07/11/16) Cholecystitis Chronic combined systolic and diastolic CHF (congestive heart failure) Chronic renal failure, stage 3 (moderate) Chronic respiratory failure with hypoxia COPD (chronic obstructive pulmonary disease) Essential (primary) hypertension Hyperlipemia Left bundle branch block Localized edema Lymphedema Morbid obesity with BMI of 45.0-49.9, adult Non-rheumatic aortic stenosis Obstructive sleep apnea Ocular migraine Paroxysmal atrial fibrillation Restrictive airway disease Right lower lobe pneumonia Sepsis TIA (transient ischemic attack) Type 2 diabetes mellitus without complications Venous insufficiency of both lower extremities Current Diet Ordered: soft and bite size/thin liquid Dentition: Edentulous Mental Status: Impaired Comment: mild difficulty following commands for participation in [facility] Respiratory Status: Oxygenating on 4L/M nasal cannula Penetration-Aspiration Scale Penetration-Aspiration Scale: OBJECTIVE ASSESSMENT OF SWALLOW FUNCTION (QUANTITATIVE ? PER TRIAL): PENETRATION / ASPIRATION SCALE (TORRES): 1 = does not enter airway 2 = enters airway/above vocal folds/ejected 3 = enters airway/above vocal folds/not ejected 4 = enters airway/contacts vocal folds/ejected 5 = enters airway/contacts vocal folds/not ejected 6 = enters airway/below vocal folds/ejected 7 = enters airway/below vocal folds/not ejected despite effort 8 = enters airway/below vocal folds/no effort VIDEOFLOROSCOPIC SCALE SCORE (TORRES): Grade I = aspiration of material that has penetrated into the laryngeal vestibule, intact cough reflex Grade II = aspiration < 10 % of the bolus, intact cough reflex Grade III = aspiration of < 10 % of the bolus, reduced cough reflex or aspiration of > 10 % of the bolus, intact cough reflex Grade IV = aspiration of > 10 % of the bolus, reduced cough reflex Penetration-Aspiration Scale Score Thin Liquid - teaspoon : Result: 5= enters airways/contacts vocal folds/not ejected Comment: Highly suspect aspiration, but unable to confirm d/t body habitus which obscured vocal fold view w/ swallow completion Thin liquid - teaspoon - trial 2: Result: 1= does not enter airway Thin liquid - single sip from cup: Result: 1= does not enter airway Thin liquid - single sip from straw: Comment: IMAGE WAS NOT CAPTURED D/T FLUORO GLITCH/FREEZING - SUSPECT PENETRATION/ASPIRATION THE PATIENT DEMONSTRATED POST PRANDIAL COUGHING Mildly Thick Liquid - teaspoon: Result: 1= does not enter airway Mildly Thick Liquid - teaspoon - trial 2: Result: 2= enter airway/above vocal folds/ejected Mildly Thick Liquid - small sip from cup: Result: 2= enter airway/above vocal folds/ejected Pudding: Result: 1= does not enter airway Cookie: Comment: unable to masticate and had to remove cookie bolus from the oral cavity; no penetration/aspiration w/ deglutition of pudding that coated the cookie Mildly thick liquid - single sip via straw: Result: 1= does not enter airway Oral Phase Labial Seal: Interlabial escape, no progression to anterior lip Tongue Control During Bolus Hold: Posterior escape of less than half of bolus Bolus Preparation/Mastication: Minimal chewing/mashing with majority of bolus unchewed Bolus Transport/Lingual Motion: Slowed tongue motion Oral Residue: Residue collection on oral structures Pharyngeal Phase Initiation of Pharyngeal Swallow: Bolus head in pyriforms Soft Palate Elevation: No bolus between soft palate and pharyngeal wall Laryngeal Elevation: Partial superior movement thyroid cart/partial apprx aryt- epig petiole Anterior Hyoid Excursion: Complete anterior movement Epiglottic Movement: Complete inversion Laryngeal Vestibule Closure at Height of Swallow: Incomplete; narrow column of air/contrast in laryngeal vestibule Pharyngeal Stripping Wave: Present - diminished Pharyngoesophageal Segment Opening: Complete distension and complete duration; no obstruction of flow (PES view obscured by shoulder, retention/retrograde flow not visualized) Tongue Base Retraction: Trace column of contrast between tongue base & post. pharyngeal wall Pharyngeal Residue: Collection of residue within or on pharyngeal structures Esophageal Phase Esophageal Clearance: Complete clearance (unable to view esophagus d/t body habitus) Diagnosis/Impression Diagnosis: moderate oropharyngeal dysphagia (R13.20) Impression: This study was limited d/t patient?s body habitus (inability to relax/lower his shoulders or maintain an upright/head up position), necessitating use of C- arm fluoroscopy to complete this study. Even w/ C-arm use, PES/esophagus were not able to be visualized and the larynx/pharynx was visualized through his shoulder, making it difficult to view the vocal folds.? Oropharyngeal swallow function is characterized by: -impaired oral holding of thin liquids w/ partial thin liquid bolus spillage into the pharynx prior to swallow onset -thin liquid bolus reached the pyriforms prior to swallow onset w/ penetration entering from the pyriforms into the laryngeal vestibule, contacting the vocal folds -highly suspect aspiration of thin liquid contents on the vocal folds, but tracheal view was obscured d/t body habitus - post prandial throat clearing and cough present -swallow onset timing improved w/ smaller volume boluses and thicker viscosities, reducing spillage into the pyriforms and subsequent penetration (and suspected aspiration)? -adequate anterior hyoid movement? -reduced arytenoid to epiglottic petiole contact resulting in incomplete airway closure -patient is edentulous w/ inability to adequately masticate the shortbread cookie trialed during this MBS, the cookie remained whole after several seconds of attempted mastication and was subsequently removed from the patient?s mouth -PES view was obscured by the patient?s shoulders, limiting assessment of pharyngoesophageal swallow function Recommendations Diet: Puree Textures and [place]-thick Liquids Compensatory Strategies: Small Bites, Small Sips, Alternate bites/solids and sips/liquids, Sitting upright and Remain sitting upright for 30 minutes after PO intake Supervision: Distant Supervision Recommend Repeat Modified Barium Swallow: TBD Need for Skilled Speech Therapy Services: Yes Comment: ST recommended to assess diet tolerance w/ modified diet texture/liquid consistency and use of compensatory strategies. Education Completed: 4. Family/caregivers understand evaluation & agree w/ goals & tx plan. (Educated granddaughter Maria Luisa and RN Iris.) and 7. Pt requires further education on strategies & risks. Status Active ST Patient: Active Contact Information [facility] Speech Therapy:: Ana Luisa Dorado M.A. CCC-PLASMA CENTER TECHNICIAN Speech-Language Pathologist [id number] [place] [address] [email or web address] [phone]
[2023-07-20 11:56] LABS: Bedside Glucose 138 mg/dL (74-106)
[2023-07-20 13:26] VITALS: O2SAT 97
[2023-07-20 15:34] VITALS: BP 131/56; PULSE 65; RESP 17; TEMP 35.6; O2SAT 96
[2023-07-20 17:05] LABS: Bedside Glucose 140 mg/dL (74-106)
[2023-07-20] MEDS: OLANZapine 2.5 MG Tablet PO (20:49)
[2023-07-20] MEDS: Atorvastatin Calcium 40 MG Tablet PO (20:49)
[2023-07-20 21:40] LABS: Bedside Glucose 159 mg/dL (74-106)
[2023-07-21] MEDS: LORazepam 1 MG Tablet PO (05:00)
[2023-07-21] MEDS: Isosorbide Mononitrate 30 MG Tablet PO (05:00)
[2023-07-21] MEDS: Clindamycin HCl 150 MG Capsule 300 MG PO ×3 (05:00→21:45)
[2023-07-21] MEDS: Psyllium 1 PACKET PO ×2 (05:00→18:10)
[2023-07-21] MEDS: Furosemide 40 MG Tablet PO (05:00)
[2023-07-21] MEDS: levETIRAcetam 500 MG Tablet PO ×2 (05:00→18:10)
[2023-07-21] MEDS: Cholecalciferol (VIT D3) 25 MCG TABLET (1,000 UNITS) PO (05:01)
[2023-07-21] MEDS: Famotidine 20 MG Tablet PO (05:01)
[2023-07-21] MEDS: APIXABAN 2.5 MG TABLET (WCH) PO ×2 (05:01→18:10)
[2023-07-21] MEDS: Sertraline 50 MG Tablet 25 MG PO (05:01)
[2023-07-21] MEDS: Menthol/Lanolin/Calamine/Znox 113 GM Tube 1 APPLIC TOPICAL ×2 (05:02→18:14)
[2023-07-21] MEDS: Nystatin Powder 15gm Bottle 1 APPLIC TOPICAL ×2 (05:02→18:10)
[2023-07-21 06:00] VITALS: BMI 42.3
[2023-07-21 06:36] LABS: Bedside Glucose 152 mg/dL (74-106)
[2023-07-21] MEDS: Multivitamins,Therapeutic Tablet 1 TABLET PO (08:32)
[2023-07-21] MEDS: Insulin NPH Human 100 UNITS/ML PEN SC ×2 (08:32→18:25)
[2023-07-21] MEDS: Allopurinol 300 MG Tablet 150 MG PO (08:33)
[2023-07-21 11:23] LABS: Bedside Glucose 107 mg/dL (74-106)
[2023-07-21 14:03] VITALS: BP 93/45; PULSE 60; RESP 17; TEMP 35.9; O2SAT 97
--- NOTE | 2023-07-21 15:00 | CASEMGMT ---
Social Work Gddtr visiting with pt. SW spoke with gddtr on plans for DC. Gddtr states she is meeting with attorney lawyer Cristal Fuentes 07/22 to discuss guardianship and access to pt's finances. Pt is unable to admit to SNF without payment. SW acknowledged but requested gddtr make selections of SNFs for this worker to start placing referrals. SW offered assistance with guardianship and could answer any questions from attorney lawyer, if needed. Gddtr appreciative. SW will continue to follow. Dalia Samuels, CAUSTIC ROOM ATTENDANT TRIBAL COUNCIL MEMBER
[2023-07-21 17:01] LABS: Bedside Glucose 114 mg/dL (74-106)
[2023-07-21 18:24] LABS: Absolute Lymphocyte Count 1.62 X10^3/uL (0.83-4.51); Absolute Neutrophil Count 5.4 X10^3/uL (2.0-7.7); Basophil# 0.03 X10^3/uL; Basophil% 0.4 % (0-1); Eosinophil# 0.27 X10^3/uL; Eosinophils% 3.4 % (0-5); Hematocrit 31.2 % (40-54); Hemoglobin 9.7 g/dL (13.0-16.5); Lymphocyte # 1.62 X10^3/ul (0.83-4.51); Lymphocyte % 20.6 % (19-41); Mean Corp Hgb Conc 31.1 g/dL (32-36); Mean Corpuscular Hgb 31.2 pg (27.0-32.0); Mean Corpuscular Volume 100.3 fL (80-94); Mean Platelet Vol. 10.4 fl (6.2-12.0); Monocyte# 0.52 X10^3/uL; Monocyte% 6.6 % (0-10); NRBC Flagged by Analyzer 0 % (0-5); Neutrophil # 5.39 X10^3/uL (2.7-7.7); Neutrophil % 68.5 % (47-70); Platelet Count 141 K/mm3 (150-450); RBC Distribution Width CV 15.5 % (11.6-14.6); RBC Distribution Width SD 55.8 fl (35.1-43.9); Red Blood Count 3.11 M/mm3 (4.6-6.2); White Blood Count 7.9 K/mm3 (4.4-11.0)
[2023-07-21 19:16] LABS: Anion Gap 5 (5-15); BUN 73 mg/dL (7-18); BUN/Creat Ratio 31.7 RATIO (10-20); Calcium,Total 9.6 mg/dL (8.5-10.1); Chloride 112 mmol/L (98-107); EST Glomerular Filtration Rate 29 mL/min (>60); Est Glom Filt Rate - Afr Amer 35 mL/min (>60); Estimated Creatinine Clearance 21.54 ml/min; Glucose 111 mg/dL (74-106); Potassium 4.3 mmol/L (3.5-5.1); Sodium Level 141 mmol/L (136-145)
[2023-07-21 21:32] LABS: Bedside Glucose 116 mg/dL (74-106)
[2023-07-21] MEDS: Atorvastatin Calcium 40 MG Tablet PO (21:45)
[2023-07-21] MEDS: OLANZapine 2.5 MG Tablet PO (21:45)
[2023-07-21] MEDS: Doxepin Hydrochloride 10 MG Capsule PO (21:45)
[2023-07-21 21:54] VITALS: PULSE 68; RESP 18
[2023-07-21 23:12] LABS: Bacteria 0 SEEN /hpf (None Seen); Mucous, Urine 0 SEEN /hpf (<or=2+); Red Blood Cells-Urine 0 SEEN /hpf (0-5); Squamous Epithelial Cells - UA 0 SEEN /hpf (0-5)
[2023-07-21 23:14] LABS: Color, Urine Yellow (Yellow); Glucose, Dipstick Normal (Normal); Ketone-Dipstick Negative (Negative); Leukocyte Esterase-Dipstick Negative /ul (Negative); Nitrite-Dipstick Negative (Negative); Occult Blood-Urine Negative /ul (Negative); Protein-Dipstick 30 mg/dl (Negative); Specific Gravity, Urine 1.015 (1.002-1.030); Urine Bilirubin Dipstick Negative (Negative); Urine Clarity Clear (Clear); Urine Urobilinogen Normal (Normal)
[2023-07-22 00:06] LABS: White Blood Cells 0-5 SEEN /hpf (0-5)
[2023-07-22] MEDS: Sertraline 50 MG Tablet 25 MG PO (06:13)
[2023-07-22] MEDS: Clindamycin HCl 150 MG Capsule 300 MG PO ×3 (06:14→20:38)
[2023-07-22] MEDS: APIXABAN 2.5 MG TABLET (WCH) PO ×2 (06:14→17:12)
[2023-07-22] MEDS: Calcitriol 0.25 MCG Capsule 0.5 MCG PO (06:14)
[2023-07-22] MEDS: levETIRAcetam 500 MG Tablet PO ×2 (06:14→17:12)
[2023-07-22] MEDS: Cholecalciferol (VIT D3) 25 MCG TABLET (1,000 UNITS) PO (06:15)
[2023-07-22] MEDS: Menthol/Lanolin/Calamine/Znox 113 GM Tube 1 APPLIC TOPICAL ×2 (06:15→17:12)
[2023-07-22] MEDS: Nystatin Powder 15gm Bottle 1 APPLIC TOPICAL ×2 (06:16→17:13)
[2023-07-22] MEDS: Famotidine 20 MG Tablet PO (06:16)
[2023-07-22 06:32] LABS: Bedside Glucose 79 mg/dL (74-106)
[2023-07-22] MEDS: Allopurinol 300 MG Tablet 150 MG PO (09:30)
[2023-07-22] MEDS: Multivitamins,Therapeutic Tablet 1 TABLET PO (09:31)
[2023-07-22 09:40] VITALS: PULSE 73; RESP 16
[2023-07-22 11:52] LABS: Bedside Glucose 100 mg/dL (74-106)
[2023-07-22 13:30] VITALS: O2SAT 95
[2023-07-22] MEDS: LORazepam 1 MG Tablet PO (14:42)
[2023-07-22 16:00] VITALS: BP 138/61; PULSE 56; RESP 16; TEMP 36.1; O2SAT 95
--- NOTE | 2023-07-22 16:17 | CASEMGMT ---
Social Work Gddtr presented to this worker's office stating she met with workers compensation defense attorney whom is filing a temporary and permanent guardianship application. Further paperwork is being completed on the following business day. Gddtr to keep this worker updated on process to prepare for DC. Gddtr provided list of SNFs: [facility], [facility], [facility]. SW will make referrals. SUMAYA Britt
[2023-07-22] MEDS: Psyllium 1 PACKET PO (17:12)
[2023-07-22 18:00] LABS: Bedside Glucose 127 mg/dL (74-106)
[2023-07-22] MEDS: Insulin NPH Human 100 UNITS/ML PEN SC (18:16)
[2023-07-22] MEDS: Atorvastatin Calcium 40 MG Tablet PO (20:38)
[2023-07-22] MEDS: OLANZapine 2.5 MG Tablet PO (20:38)
[2023-07-22 21:26] LABS: Bedside Glucose 128 mg/dL (74-106)
[2023-07-23] VITALS (8 sets, daily range): BP systolic 119–152; BP diastolic 47–75; PULSE 65–74; RESP 18–20; TEMP 36.2; O2SAT 91–96
[2023-07-23] MEDS: Menthol/Lanolin/Calamine/Znox 113 GM Tube 1 APPLIC TOPICAL ×2 (05:34→18:02)
[2023-07-23] MEDS: Clindamycin HCl 150 MG Capsule 300 MG PO ×3 (05:34→23:32)
[2023-07-23] MEDS: Cholecalciferol (VIT D3) 25 MCG TABLET (1,000 UNITS) PO (05:35)
[2023-07-23] MEDS: Sertraline 50 MG Tablet 25 MG PO (05:35)
[2023-07-23] MEDS: levETIRAcetam 500 MG Tablet PO ×2 (05:35→17:56)
[2023-07-23] MEDS: Furosemide 40 MG Tablet PO (05:36)
[2023-07-23] MEDS: APIXABAN 2.5 MG TABLET (WCH) PO ×2 (05:36→17:56)
[2023-07-23] MEDS: Isosorbide Mononitrate 30 MG Tablet PO (05:36)
[2023-07-23] MEDS: Nystatin Powder 15gm Bottle 1 APPLIC TOPICAL ×2 (05:37→18:02)
[2023-07-23] MEDS: Famotidine 20 MG Tablet PO (05:37)
[2023-07-23 06:41] LABS: Bedside Glucose 129 mg/dL (74-106)
[2023-07-23] MEDS: Allopurinol 300 MG Tablet 150 MG PO (09:28)
[2023-07-23] MEDS: Multivitamins,Therapeutic Tablet 1 TABLET PO (09:28)
[2023-07-23] MEDS: Insulin NPH Human 100 UNITS/ML PEN SC ×2 (09:30→17:56)
[2023-07-23 11:36] LABS: Bedside Glucose 137 mg/dL (74-106)
[2023-07-23 17:38] LABS: Bedside Glucose 146 mg/dL (74-106)
--- NOTE | 2023-07-23 21:30 | NURSING ---
Addendum entered by Ebonie Giraldo 07/24/23 02:53: Toilet schedule Q 2hr in place as new intervention. Addendum entered by Eobnie Giraldo 07/24/23 02:24: 07/23/23 @ 21:40 alarm box assessed/adjusted and now sounding as should. Addendum entered by Ebonie Giraldo 07/23/23 21:57: Dr. Magallanes updated on fall. NO for CT of the head. Original Note: @ 2130 a noise was heard coming from the unit lounge. When noise was investigated pt was noted to be lying on his L side on the floor in front of his recliner. Chair alarm was in place and on, however did not alarm when pt had gotten up from chair. When this nurse asked what pt was trying to do pt voiced he was trying to get up and go to the bathroom. Pt voices he is in pain, but unable to rate pain 1-10. New skin tear to L elbow, dressed w/ adaptic and DSD. Neuro checks in place and WNL. Staff assisted pt back into recliner w/ gait belt. Pt then taken to bedroom for HS care and the bathroom.
--- NOTE | 2023-07-23 22:11 | NURSING ---
Called Next of kin, Maria Luisa, to update on fall. No answer. L asking Maria Luisa to return call for an update.
[2023-07-23 22:35] LABS: Bedside Glucose 147 mg/dL (74-106)
--- NOTE | 2023-07-23 22:37 | NURSING ---
patient rep Maria Luisa returned call to unit for update. Patient rep updated on patient fall and order from Dr. Magallanes for CT scan of head due to on blood thinner. No concerns voiced at this time.
[2023-07-23] MEDS: OLANZapine 2.5 MG Tablet PO (23:32)
[2023-07-23] MEDS: Atorvastatin Calcium 40 MG Tablet PO (23:32)
--- NOTE | 2023-07-24 01:15 | NURSING ---
This nurse receiving shift report. Noted pr nurse going off shift pt sitting on the side of his bed per the room camera. Upon entering room, speech is mumbled and ideas verbalized are nonsensical- which is baseline for pt. O2 in place at 4 lpm via nc. Bed alarm was activated but did not sound. Pt siting on mat on the floor. Posturing is poor. Did not hit head. Pt placed in supine position per 3-4 staff assist. Incontinent of urine and brief was changed. No injuries noted. Moves all extremities without difficulty. Michele sling placed under pt and lifted from floor to recliner chair per 4 staff. Placed in common area. Nasal cannula connected to concentrator at 4 lpm via nc. BLE elevated in recliner and recliner chair locked. López within reach to call for staff. Nursing paper products supervisor on unit when fall occurred. Will continue to monitor.
[2023-07-24] MEDS: Acetaminophen 500 MG Tablet 1000 MG PO (01:42)
[2023-07-24] MEDS: LORazepam 1 MG Tablet PO ×2 (01:42→06:08)
[2023-07-24 01:50] VITALS: BP 159/70; PULSE 71; RESP 20; TEMP 36; O2SAT 96
--- NOTE | 2023-07-24 03:15 | NURSING ---
Pt reports the urge to void. Incontinence care provided within the past hour for a lg amount of urine. Bladder scan completed result was 17 ml. Pt also has intermittently been reaching upward and notes he is pulling on an invisible line. Will continue to monitor.
[2023-07-24 06:00] VITALS: BP 138/64; PULSE 70
[2023-07-24] MEDS: Menthol/Lanolin/Calamine/Znox 113 GM Tube 1 APPLIC TOPICAL ×2 (06:07→18:28)
[2023-07-24] MEDS: Clindamycin HCl 150 MG Capsule 300 MG PO ×3 (06:08→21:33)
[2023-07-24] MEDS: Isosorbide Mononitrate 30 MG Tablet PO (06:09)
[2023-07-24] MEDS: levETIRAcetam 500 MG Tablet PO ×2 (06:09→18:07)
[2023-07-24] MEDS: Sertraline 50 MG Tablet 25 MG PO (06:09)
[2023-07-24] MEDS: Famotidine 20 MG Tablet PO (06:10)
[2023-07-24] MEDS: Furosemide 40 MG Tablet PO (06:10)
[2023-07-24] MEDS: APIXABAN 2.5 MG TABLET (WCH) PO ×2 (06:10→18:07)
[2023-07-24] MEDS: Cholecalciferol (VIT D3) 25 MCG TABLET (1,000 UNITS) PO (06:10)
[2023-07-24 06:49] LABS: Bedside Glucose 111 mg/dL (74-106)
--- NOTE | 2023-07-24 08:31 | NURSING ---
Secure text message sent through [employer] notifying Dr. Magallanes of fall and phone call placed to granddaughter, Maria Luisa, to update. Maria Luisa does not have any questions to ask and notes she will be in to visit around 1000.
--- NOTE | 2023-07-24 08:52 | NURSING ---
Due to patient being very drowsy this morning all morning medications were not given. BS was 111 and patient not awake enough to eat.
[2023-07-24 12:07] LABS: Bedside Glucose 86 mg/dL (74-106)
[2023-07-24 16:00] VITALS: BP 122/88; PULSE 65; RESP 14; TEMP 36.1; O2SAT 100
[2023-07-24 16:52] LABS: Bedside Glucose 92 mg/dL (74-106)
[2023-07-24] MEDS: Psyllium 1 PACKET PO (18:07)
[2023-07-24] MEDS: Insulin NPH Human 100 UNITS/ML PEN SC (18:31)
--- NOTE | 2023-07-24 20:45 | NURSING ---
Spoke w/ Dr. Magallanes via phone requesting to dc Metamucil d/t difficulty mixing w/ nectar thick liquids and poor po intake at times. New orders received and read back to daniel Metamucil and start Senna-S 1 tablet po bid.
[2023-07-24] MEDS: Atorvastatin Calcium 40 MG Tablet PO (21:34)
[2023-07-24] MEDS: OLANZapine 2.5 MG Tablet PO (21:34)
[2023-07-24] MEDS: Nystatin Powder 15gm Bottle 1 APPLIC TOPICAL (21:39)
[2023-07-24 21:54] LABS: Bedside Glucose 113 mg/dL (74-106)
--- NOTE | 2023-07-25 01:33 | NURSING ---
Dressing change to left upper lateral arm per order. Pt tolerated well.
[2023-07-25] MEDS: Acetaminophen 500 MG Tablet 1000 MG PO (03:03)
[2023-07-25] MEDS: LORazepam 1 MG Tablet PO ×2 (03:04→23:20)
[2023-07-25] MEDS: Senna/Docusate Sodium 1 Tablet PO ×2 (05:32→23:20)
[2023-07-25] MEDS: Cholecalciferol (VIT D3) 25 MCG TABLET (1,000 UNITS) PO (05:33)
[2023-07-25] MEDS: levETIRAcetam 500 MG Tablet PO ×2 (05:33→23:20)
[2023-07-25] MEDS: Famotidine 20 MG Tablet PO (05:33)
[2023-07-25] MEDS: Clindamycin HCl 150 MG Capsule 300 MG PO ×3 (05:34→23:21)
[2023-07-25] MEDS: APIXABAN 2.5 MG TABLET (WCH) PO ×2 (05:36→23:20)
[2023-07-25] MEDS: Sertraline 50 MG Tablet 25 MG PO (05:36)
[2023-07-25 05:45] VITALS: BP 96/36; PULSE 68
[2023-07-25 05:47] LABS: Absolute Lymphocyte Count 1.42 X10^3/uL (0.83-4.51); Absolute Neutrophil Count 5.4 X10^3/uL (2.0-7.7); Basophil# 0.04 X10^3/uL; Basophil% 0.5 % (0-1); Eosinophil# 0.32 X10^3/uL; Eosinophils% 4.1 % (0-5); Hematocrit 29.4 % (40-54); Hemoglobin 9.6 g/dL (13.0-16.5); Lymphocyte # 1.42 X10^3/ul (0.83-4.51); Lymphocyte % 18.2 % (19-41); Mean Corp Hgb Conc 32.7 g/dL (32-36); Mean Corpuscular Hgb 32.3 pg (27.0-32.0); Mean Platelet Vol. 10.7 fl (6.2-12.0); Monocyte# 0.61 X10^3/uL; Monocyte% 7.8 % (0-10); NRBC Flagged by Analyzer 0 % (0-5); Neutrophil # 5.39 X10^3/uL (2.7-7.7); Platelet Count 135 K/mm3 (150-450); RBC Distribution Width CV 15.3 % (11.6-14.6); RBC Distribution Width SD 55.1 fl (35.1-43.9); Red Blood Count 2.97 M/mm3 (4.6-6.2); White Blood Count 7.8 K/mm3 (4.4-11.0)
[2023-07-25 06:00] VITALS: BMI 40.2
[2023-07-25 06:05] LABS: Differential Indicated SCAN CRITERIA MET
[2023-07-25 06:33] LABS: Anion Gap 5 (5-15); BUN 65 mg/dL (7-18); BUN/Creat Ratio 27.4 RATIO (10-20); Calcium,Total 9.1 mg/dL (8.5-10.1); Chloride 114 mmol/L (98-107); Creatinine, Serum 2.37 mg/dL (0.70-1.30); EST Glomerular Filtration Rate 28 mL/min (>60); Est Glom Filt Rate - Afr Amer 34 mL/min (>60); Glucose 92 mg/dL (74-106); Potassium 4.3 mmol/L (3.5-5.1); Sodium Level 142 mmol/L (136-145)
[2023-07-25 06:43] LABS: Bedside Glucose 92 mg/dL (74-106)
[2023-07-25 07:54] VITALS: O2SAT 86
--- NOTE | 2023-07-25 07:54 | CPS ---
Found pt with o2 out of his nose. RT checked SP02 and it was 86%. RT placed NC back in Pt nose
[2023-07-25] MEDS: Calcitriol 0.25 MCG Capsule 0.5 MCG PO (08:34)
[2023-07-25] MEDS: Multivitamins,Therapeutic Tablet 1 TABLET PO (08:34)
[2023-07-25] MEDS: Allopurinol 300 MG Tablet 150 MG PO (08:35)
--- NOTE | 2023-07-25 10:21 | PCM.PN.REN ---
Subjective Subjective Following for CKD Sitting in chair. No acute distress noted. No recent overnight events. Objective Data Objective Data Vital Signs: Vital Signs Temp Pulse Resp BP Pulse Ox O2 Del Method O2 Flow Rate 97.0 F L 68 14 96/36 L 86 Room Air 3 07/24/23 16:00 07/25/23 05:45 07/24/23 16:00 07/25/23 05:45 07/25/23 07:54 07/25/23 07:54 07/24/23 16:00 FiO2 92 07/04/23 19:55 Oxygen Flow Rate (L/min) [At 4 REST with Oxygen] Oxygen Flow Rate (L/min) 3 Oxygen Delivery Method Room Air Weight: 115.394 kg Body Mass Index (BMI) 42.3 Intake & Output: Intake and Output for Last 24 Hours 07/23/23 07/24/23 07/25/23 23:59 23:59 23:59 Intake Total 960 / 960 360 / 360 0 / 0 Balance 960 / 960 360 / 360 0 / 0 Lab / Micro Data 07/25/23 05:14 07/25/23 05:14 Labs: Laboratory Results - last 24 hr 07/24/23 11:48: POC Glucose 86 07/24/23 16:34: POC Glucose 92 07/24/23 21:16: POC Glucose 113 H 07/25/23 05:14: WBC 7.8, RBC 2.97 L, Hgb 9.6 L, Hct 29.4 L, MCV 99.0 H, MCH 32.3 H, MCHC 32.7 D, RDW Std Deviation 55.1 H, RDW Coeff of Yeny 15.3 H, Plt Count 135 L, MPV 10.7, Immature Gran % (Auto) 0.400, Neut % (Auto) 69.0, Lymph % (Auto) 18.2 L, [place] % (Auto) 7.8, Eos % (Auto) 4.1, Baso % (Auto) 0.5, Absolute Neuts (auto) 5.4, Absolute Lymphs (auto) 1.42, Nucleated RBC % 0, Sodium 142, Potassium 4.3, Chloride 114 H, Carbon Dioxide 23.0, Anion Gap 5, BUN 65 H, Creatinine 2.37 H, Estim Creat Clear Calc 20.90, Est GFR (MDRD) Af Amer 34 L, Est GFR (MDRD) Non-Af 28 L, BUN/Creatinine Ratio 27.4 H, Glucose 92, Calcium 9.1 07/25/23 06:15: POC Glucose 92 Micro: Microbiology 07/21/23 18:10 Urine, Catheterized Urine Culture - Final Culture exhibits no growth. 07/07/23 09:00 Urine Catheter - Catheter Urine Culture - Final Culture exhibits no growth. 07/05/23 Unknown Stool Stool Occult Blood (AYUSH) - Final Physical Exam Narrative Alert, no apparent distress S1, S2, rhythm irregular, rate controlled Lung sounds clear anteriorly. No audible wheezing Abdomen soft, rounded, positive bowel sounds, nontender Trace edema noted bilateral lower legs Assessment & Plan Assessment/Plan (1) CKD (chronic kidney disease) stage 4, GFR 15-29 ml/min: PLAN: Plan This is a pleasant 83-year-old male with past medical history significant for diabetes mellitus type 2, hypertension, COPD, A-fib, CKD stage IV who is currently in rehab unit receiving therapy after recent hospitalization for TIA/acute encephalopathy. Patient had MRI no evidence of stroke; CT of brain showed no acute bleed or acute process. Nephrology consulted as patient has history of chronic kidney disease. Patient is followed by Dr. Han. - CKD stage IV secondary diabetic nephropathy, baseline creatinine ranging around 2.4 to 2.7 mg/dL. At this time renal function stable and at baseline, SCr 2.37/dL. Potassium, acid-base and volume status acceptable. Renal function stable during hospitalization. At time of initial hospital admission renal function at baseline. Patient is nonoliguric and appears to be near euvolemic. Continue lasix. patient does not need daily bmp labs. - History of HTN; blood pressures acceptable. - discharge planning in progress. - patient will need hospital follow-up made with his timber incisor operator, Dr. Han in about 1-2 months.
[2023-07-25] MEDS: Menthol/Lanolin/Calamine/Znox 113 GM Tube 1 APPLIC TOPICAL ×2 (10:55→23:21)
[2023-07-25] MEDS: Nystatin Powder 15gm Bottle 1 APPLIC TOPICAL ×2 (10:56→23:21)
[2023-07-25 11:23] LABS: Bedside Glucose 102 mg/dL (74-106)
[2023-07-25 15:25] VITALS: BP 111/42; PULSE 97; RESP 19; TEMP 35.8; O2SAT 93
[2023-07-25 16:48] LABS: Bedside Glucose 100 mg/dL (74-106)
[2023-07-25 22:27] LABS: Bedside Glucose 123 mg/dL (74-106)
[2023-07-25] MEDS: OLANZapine 2.5 MG Tablet PO (23:20)
[2023-07-25] MEDS: Atorvastatin Calcium 40 MG Tablet PO (23:20)
[2023-07-26] MEDS: Acetaminophen 500 MG Tablet 1000 MG PO ×2 (05:01→21:40)
[2023-07-26] MEDS: Clindamycin HCl 150 MG Capsule 300 MG PO ×3 (05:02→21:36)
[2023-07-26] MEDS: LORazepam 1 MG Tablet PO (05:02)
[2023-07-26 05:11] VITALS: PULSE 80; RESP 18; O2SAT 92
[2023-07-26 06:00] VITALS: BMI 38.8
[2023-07-26 06:41] LABS: Bedside Glucose 112 mg/dL (74-106)
[2023-07-26] MEDS: Multivitamins,Therapeutic Tablet 1 TABLET PO (09:20)
[2023-07-26] MEDS: Allopurinol 300 MG Tablet 150 MG PO (09:20)
[2023-07-26] MEDS: Isosorbide Mononitrate 30 MG Tablet PO (09:22)
[2023-07-26] MEDS: APIXABAN 2.5 MG TABLET (WCH) PO ×2 (09:22→21:36)
[2023-07-26] MEDS: Famotidine 20 MG Tablet PO (09:23)
[2023-07-26] MEDS: Furosemide 40 MG Tablet PO (09:23)
[2023-07-26] MEDS: levETIRAcetam 500 MG Tablet PO ×2 (09:23→21:36)
[2023-07-26] MEDS: Cholecalciferol (VIT D3) 25 MCG TABLET (1,000 UNITS) PO (09:24)
[2023-07-26] MEDS: Sertraline 50 MG Tablet 25 MG PO (09:24)
[2023-07-26] MEDS: Senna/Docusate Sodium 1 Tablet PO ×2 (09:24→21:36)
[2023-07-26] MEDS: Menthol/Lanolin/Calamine/Znox 113 GM Tube 1 APPLIC TOPICAL ×2 (09:53→21:52)
[2023-07-26] MEDS: Nystatin Powder 15gm Bottle 1 APPLIC TOPICAL ×2 (09:54→21:52)
[2023-07-26 11:56] LABS: Bedside Glucose 86 mg/dL (74-106)
[2023-07-26 13:10] VITALS: O2SAT 99
[2023-07-26 14:09] VITALS: BMI 41.5
[2023-07-26 16:00] VITALS: BP 116/57; PULSE 60; RESP 16; TEMP 35.6; O2SAT 97
[2023-07-26 16:55] LABS: Bedside Glucose 128 mg/dL (74-106)
[2023-07-26] MEDS: Atorvastatin Calcium 40 MG Tablet PO (21:36)
[2023-07-26] MEDS: Doxepin Hydrochloride 10 MG Capsule PO (21:36)
[2023-07-26] MEDS: OLANZapine 2.5 MG Tablet PO (21:36)
[2023-07-26 21:39] LABS: Bedside Glucose 135 mg/dL (74-106)
[2023-07-27 05:52] VITALS: BMI 40.7
[2023-07-27 06:48] LABS: Bedside Glucose 83 mg/dL (74-106)
[2023-07-27 07:00] VITALS: O2SAT 93
[2023-07-27 07:09] VITALS: O2SAT 99
[2023-07-27] MEDS: Clindamycin HCl 150 MG Capsule 300 MG PO (08:02)
[2023-07-27] MEDS: Allopurinol 300 MG Tablet 150 MG PO (08:02)
[2023-07-27] MEDS: Multivitamins,Therapeutic Tablet 1 TABLET PO (08:02)
--- NOTE | 2023-07-27 09:14 | CASEMGMT ---
Social Work IDT identified pt is declining, not eating, not wanting/able to fully participate in therapy, being irritated and restless. IDT notified Dr. Magallanes. Due to gddtr's work schedule, agreed to speak in person with gddtr on Tuesday afternoon (07/29) about hospice/end of life care. If agreeable, pt has potential to be skilled for end of life under Medicare benefit for about two weeks. SW phoned winch truck operator, Danuta Vivar, to inquire about status of temporary guardianship, as finances are needed to transfer pt to SNF with official hospice care. SW spoke with accounting assistant, Ingrid. Ingrid stated the emergency guardianship was denied but a hearing was scheduled for 08/05 for permanent guardianship and an outcome should be determined at that hearing. Ingrid send copy of denial to this worker - placed on chart. Ingrid or Maria Luisa (dtr) to keep this worker updated from court hearing next week. ERICA will continue to follow. SUMAYA Britt COMPLIANCE PROJECT MANAGER
[2023-07-27] MEDS: Sertraline 50 MG Tablet 25 MG PO (10:24)
[2023-07-27] MEDS: Cholecalciferol (VIT D3) 25 MCG TABLET (1,000 UNITS) PO (10:24)
[2023-07-27] MEDS: levETIRAcetam Oral Solution 500 MG/5 ML PO ×2 (10:24→20:58)
[2023-07-27] MEDS: Calcitriol 0.25 MCG Capsule 0.5 MCG PO (10:25)
[2023-07-27] MEDS: Isosorbide Mononitrate 30 MG Tablet PO (10:25)
[2023-07-27] MEDS: Menthol/Lanolin/Calamine/Znox 113 GM Tube 1 APPLIC TOPICAL ×2 (10:25→21:03)
[2023-07-27] MEDS: Famotidine 20 MG Tablet PO (10:25)
[2023-07-27] MEDS: Furosemide 40 MG Tablet PO (10:25)
[2023-07-27] MEDS: Senna/Docusate Sodium 1 Tablet PO ×2 (10:25→21:02)
[2023-07-27] MEDS: APIXABAN 2.5 MG TABLET (WCH) PO ×2 (10:25→20:58)
[2023-07-27] MEDS: Nystatin Powder 15gm Bottle 1 APPLIC TOPICAL ×2 (10:26→21:03)
[2023-07-27 12:08] LABS: Bedside Glucose 123 mg/dL (74-106)
[2023-07-27 13:14] VITALS: O2SAT 96
[2023-07-27 16:00] VITALS: BP 112/63; PULSE 62; RESP 14; TEMP 35.7; O2SAT 98
[2023-07-27 16:44] LABS: Bedside Glucose 157 mg/dL (74-106)
[2023-07-27] MEDS: Glucerna Shake 120 ML LIQUID PO ×2 (18:27→21:01)
[2023-07-27] MEDS: Insulin NPH Human 100 UNITS/ML PEN SC (18:28)
[2023-07-27] MEDS: OLANZapine 2.5 MG Tablet PO (20:57)
[2023-07-27] MEDS: Doxepin Hydrochloride 10 MG Capsule PO (20:57)
[2023-07-27] MEDS: Atorvastatin Calcium 40 MG Tablet PO (20:57)
[2023-07-27] MEDS: Acetaminophen 500 MG Tablet 1000 MG PO (21:02)
[2023-07-27 21:36] LABS: Bedside Glucose 140 mg/dL (74-106)
[2023-07-28] MEDS: Glucerna Shake 120 ML LIQUID PO ×4 (04:10→20:13)
[2023-07-28 05:30] VITALS: BMI 40.5
[2023-07-28 06:49] LABS: Bedside Glucose 140 mg/dL (74-106)
[2023-07-28] MEDS: Insulin NPH Human 100 UNITS/ML PEN SC ×2 (08:38→18:46)
[2023-07-28] MEDS: Allopurinol 300 MG Tablet 150 MG PO (08:39)
[2023-07-28] MEDS: Multivitamins,Therapeutic Tablet 1 TABLET PO (08:39)
[2023-07-28] MEDS: Famotidine 20 MG Tablet PO (08:41)
[2023-07-28] MEDS: Senna/Docusate Sodium 1 Tablet PO ×2 (08:41→20:15)
[2023-07-28] MEDS: levETIRAcetam Oral Solution 500 MG/5 ML PO ×2 (08:41→20:16)
[2023-07-28] MEDS: Isosorbide Mononitrate 30 MG Tablet PO (08:41)
[2023-07-28] MEDS: Furosemide 40 MG Tablet PO (08:41)
[2023-07-28] MEDS: APIXABAN 2.5 MG TABLET (WCH) PO ×2 (08:41→20:16)
[2023-07-28] MEDS: Cholecalciferol (VIT D3) 25 MCG TABLET (1,000 UNITS) PO (08:42)
[2023-07-28] MEDS: Menthol/Lanolin/Calamine/Znox 113 GM Tube 1 APPLIC TOPICAL ×2 (08:42→20:16)
[2023-07-28] MEDS: Nystatin Powder 15gm Bottle 1 APPLIC TOPICAL ×2 (08:42→20:16)
[2023-07-28] MEDS: Sertraline 50 MG Tablet 25 MG PO (08:42)
[2023-07-28 12:16] LABS: Bedside Glucose 128 mg/dL (74-106)
--- NOTE | 2023-07-28 14:21 | WOUNDNOTE ---
Pt is currently off the unit.
[2023-07-28 16:00] VITALS: BP 128/44; PULSE 65; RESP 18; TEMP 35.7; O2SAT 100
[2023-07-28 16:28] LABS: Bedside Glucose 128 mg/dL (74-106)
[2023-07-28] MEDS: Acetaminophen 500 MG Tablet 1000 MG PO (20:13)
[2023-07-28] MEDS: Doxepin Hydrochloride 10 MG Capsule PO (20:14)
[2023-07-28] MEDS: Atorvastatin Calcium 40 MG Tablet PO (20:15)
[2023-07-28] MEDS: OLANZapine 2.5 MG Tablet PO (20:15)
[2023-07-28 20:25] VITALS: PULSE 78; RESP 18; O2SAT 98
[2023-07-28 22:08] LABS: Bedside Glucose 159 mg/dL (74-106)
[2023-07-29 06:10] VITALS: PULSE 80; RESP 18; O2SAT 94
[2023-07-29 06:36] LABS: Bedside Glucose 108 mg/dL (74-106)
[2023-07-29 10:24] VITALS: BMI 89.7
[2023-07-29 10:26] VITALS: BP 168/47; PULSE 70; RESP 18; TEMP 36.2; O2SAT 98
[2023-07-29] MEDS: Glucerna Shake 120 ML LIQUID PO ×2 (10:34→21:07)
[2023-07-29] MEDS: Insulin NPH Human 100 UNITS/ML PEN SC (10:35)
[2023-07-29] MEDS: Multivitamins,Therapeutic Tablet 1 TABLET PO (10:35)
[2023-07-29] MEDS: Isosorbide Mononitrate 30 MG Tablet PO (10:36)
[2023-07-29] MEDS: APIXABAN 2.5 MG TABLET (WCH) PO ×2 (10:36→21:07)
[2023-07-29] MEDS: levETIRAcetam Oral Solution 500 MG/5 ML PO ×2 (10:36→21:07)
[2023-07-29] MEDS: Allopurinol 300 MG Tablet 150 MG PO (10:36)
[2023-07-29] MEDS: Furosemide 40 MG Tablet PO (10:37)
[2023-07-29] MEDS: Cholecalciferol (VIT D3) 25 MCG TABLET (1,000 UNITS) PO (10:37)
[2023-07-29] MEDS: Sertraline 50 MG Tablet 25 MG PO (10:37)
[2023-07-29] MEDS: Senna/Docusate Sodium 1 Tablet PO ×2 (10:37→21:07)
[2023-07-29] MEDS: Calcitriol 0.25 MCG Capsule 0.5 MCG PO (10:37)
[2023-07-29] MEDS: Famotidine 20 MG Tablet PO (10:37)
[2023-07-29] MEDS: Nystatin Powder 15gm Bottle 1 APPLIC TOPICAL ×2 (10:43→21:09)
[2023-07-29] MEDS: Menthol/Lanolin/Calamine/Znox 113 GM Tube 1 APPLIC TOPICAL ×2 (10:44→22:51)
[2023-07-29 16:21] LABS: Bedside Glucose 129 mg/dL (74-106)
[2023-07-29] MEDS: Atorvastatin Calcium 40 MG Tablet PO (21:07)
[2023-07-29] MEDS: OLANZapine 2.5 MG Tablet PO (21:07)
[2023-07-29 21:28] LABS: Bedside Glucose 113 mg/dL (74-106)
[2023-07-30 06:00] VITALS: BMI 41.3
[2023-07-30 06:51] LABS: Bedside Glucose 87 mg/dL (74-106)
[2023-07-30] MEDS: Glucerna Shake 120 ML LIQUID PO ×4 (08:02→22:44)
[2023-07-30] MEDS: APIXABAN 2.5 MG TABLET (WCH) PO ×2 (09:37→22:45)
[2023-07-30] MEDS: Senna/Docusate Sodium 1 Tablet PO ×2 (09:37→22:46)
[2023-07-30] MEDS: levETIRAcetam Oral Solution 500 MG/5 ML PO ×2 (09:37→22:45)
[2023-07-30] MEDS: Furosemide 40 MG Tablet PO (09:38)
[2023-07-30] MEDS: Allopurinol 300 MG Tablet 150 MG PO (09:38)
[2023-07-30] MEDS: Multivitamins,Therapeutic Tablet 1 TABLET PO (09:38)
[2023-07-30] MEDS: Famotidine 20 MG Tablet PO (09:38)
[2023-07-30] MEDS: Isosorbide Mononitrate 30 MG Tablet PO (09:38)
[2023-07-30] MEDS: Cholecalciferol (VIT D3) 25 MCG TABLET (1,000 UNITS) PO (09:38)
[2023-07-30] MEDS: Sertraline 50 MG Tablet 25 MG PO (09:39)
[2023-07-30] MEDS: Menthol/Lanolin/Calamine/Znox 113 GM Tube 1 APPLIC TOPICAL ×2 (09:40→22:44)
[2023-07-30] MEDS: Nystatin Powder 15gm Bottle 1 APPLIC TOPICAL ×2 (09:40→22:45)
[2023-07-30 10:33] VITALS: O2SAT 97
[2023-07-30 10:38] VITALS: O2SAT 83
[2023-07-30 11:45] LABS: Bedside Glucose 142 mg/dL (74-106)
[2023-07-30 15:47] VITALS: BP 99/63; PULSE 56; RESP 16; TEMP 36.1; O2SAT 95
[2023-07-30 16:45] LABS: Bedside Glucose 135 mg/dL (74-106)
[2023-07-30 21:51] LABS: Bedside Glucose 167 mg/dL (74-106)
[2023-07-30 22:45] VITALS: O2SAT 96
[2023-07-30] MEDS: Atorvastatin Calcium 40 MG Tablet PO (22:46)
[2023-07-30] MEDS: OLANZapine 2.5 MG Tablet PO (22:46)
[2023-07-31 06:00] VITALS: BMI 41.3
[2023-07-31 06:54] LABS: Bedside Glucose 127 mg/dL (74-106)
[2023-07-31 07:05] VITALS: O2SAT 94
[2023-07-31] MEDS: Glucerna Shake 120 ML LIQUID PO ×4 (08:12→21:15)
[2023-07-31] MEDS: Multivitamins,Therapeutic Tablet 1 TABLET PO (08:13)
[2023-07-31] MEDS: Allopurinol 300 MG Tablet 150 MG PO (08:13)
[2023-07-31 11:16] LABS: Bedside Glucose 168 mg/dL (74-106)
[2023-07-31] MEDS: Senna/Docusate Sodium 1 Tablet PO (12:08)
[2023-07-31] MEDS: Famotidine 20 MG Tablet PO (12:08)
[2023-07-31] MEDS: Isosorbide Mononitrate 30 MG Tablet PO (12:08)
[2023-07-31] MEDS: levETIRAcetam Oral Solution 500 MG/5 ML PO ×2 (12:08→21:17)
[2023-07-31] MEDS: Cholecalciferol (VIT D3) 25 MCG TABLET (1,000 UNITS) PO (12:08)
[2023-07-31] MEDS: Furosemide 40 MG Tablet PO (12:09)
[2023-07-31] MEDS: APIXABAN 2.5 MG TABLET (WCH) PO ×2 (12:09→21:17)
[2023-07-31] MEDS: Menthol/Lanolin/Calamine/Znox 113 GM Tube 1 APPLIC TOPICAL ×2 (12:15→21:18)
[2023-07-31] MEDS: Nystatin Powder 15gm Bottle 1 APPLIC TOPICAL ×2 (12:15→21:18)
[2023-07-31] MEDS: Sertraline 50 MG Tablet 25 MG PO (12:18)
[2023-07-31 12:20] VITALS: BP 163/86; PULSE 72
[2023-07-31 14:27] VITALS: BP 146/66; PULSE 60; RESP 16; TEMP 35.9; O2SAT 95
[2023-07-31 16:29] LABS: Bedside Glucose 140 mg/dL (74-106)
[2023-07-31] MEDS: OLANZapine 2.5 MG Tablet PO (21:16)
[2023-07-31] MEDS: Acetaminophen 500 MG Tablet 1000 MG PO (21:16)
[2023-07-31] MEDS: Atorvastatin Calcium 40 MG Tablet PO (21:17)
[2023-07-31] MEDS: Doxepin Hydrochloride 10 MG Capsule PO (21:33)
[2023-07-31 21:50] LABS: Bedside Glucose 151 mg/dL (74-106)
[2023-07-31 22:46] VITALS: PULSE 75; RESP 12; RESP 17; O2SAT 94
--- NOTE | 2023-07-31 22:47 | CPS ---
pt own machine would not turn on -pt placed on [facility] sl machine 11/10 with 3 l/m o2 bleed-ross well
[2023-07-31] MEDS: LORazepam 1 MG Tablet PO (23:17)
[2023-08-01] MEDS: LORazepam 1 MG Tablet PO ×4 (03:55→21:40)
[2023-08-01] MEDS: Acetaminophen 500 MG Tablet 1000 MG PO (03:56)
[2023-08-01 06:00] VITALS: BMI 40.8
[2023-08-01 06:44] LABS: Bedside Glucose 139 mg/dL (74-106)
[2023-08-01 07:10] VITALS: O2SAT 93
[2023-08-01 07:28] LABS: Absolute Neutrophil Count 4.2 X10^3/uL (2.0-7.7); Basophil# 0.03 X10^3/uL; Basophil% 0.5 % (0-1); Eosinophil# 0.21 X10^3/uL; Eosinophils% 3.2 % (0-5); Hematocrit 29.9 % (40-54); Hemoglobin 9.4 g/dL (13.0-16.5); Lymphocyte % 24.4 % (19-41); Mean Corp Hgb Conc 31.4 g/dL (32-36); Mean Corpuscular Hgb 31.2 pg (27.0-32.0); Mean Corpuscular Volume 99.3 fL (80-94); Mean Platelet Vol. 11.8 fl (6.2-12.0); Monocyte# 0.51 X10^3/uL; Monocyte% 7.8 % (0-10); NRBC Flagged by Analyzer 0 % (0-5); Neutrophil # 4.18 X10^3/uL (2.7-7.7); Neutrophil % 63.8 % (47-70); Platelet Count 122 K/mm3 (150-450); RBC Distribution Width CV 14.8 % (11.6-14.6); RBC Distribution Width SD 54.2 fl (35.1-43.9); Red Blood Count 3.01 M/mm3 (4.6-6.2); White Blood Count 6.6 K/mm3 (4.4-11.0)
[2023-08-01 08:11] LABS: Anion Gap 6 (5-15); BUN 55 mg/dL (7-18); BUN/Creat Ratio 24.7 RATIO (10-20); Calcium,Total 9.2 mg/dL (8.5-10.1); Chloride 112 mmol/L (98-107); Creatinine, Serum 2.23 mg/dL (0.70-1.30); EST Glomerular Filtration Rate 30 mL/min (>60); Est Glom Filt Rate - Afr Amer 36 mL/min (>60); Estimated Creatinine Clearance 22.22 ml/min; Glucose 129 mg/dL (74-106); Potassium 4.2 mmol/L (3.5-5.1); Sodium Level 139 mmol/L (136-145)
[2023-08-01] MEDS: Glucerna Shake 120 ML LIQUID PO ×4 (08:15→21:41)
[2023-08-01] MEDS: Allopurinol 300 MG Tablet 150 MG PO (08:22)
[2023-08-01] MEDS: Multivitamins,Therapeutic Tablet 1 TABLET PO (08:22)
[2023-08-01] MEDS: APIXABAN 2.5 MG TABLET (WCH) PO ×2 (09:45→21:36)
[2023-08-01] MEDS: Furosemide 40 MG Tablet PO (09:45)
[2023-08-01] MEDS: Isosorbide Mononitrate 30 MG Tablet PO (09:45)
[2023-08-01] MEDS: levETIRAcetam Oral Solution 500 MG/5 ML PO ×2 (09:45→21:37)
[2023-08-01] MEDS: Famotidine 20 MG Tablet PO (09:46)
[2023-08-01] MEDS: Nystatin Powder 15gm Bottle 1 APPLIC TOPICAL ×2 (09:46→21:37)
[2023-08-01] MEDS: Calcitriol 0.25 MCG Capsule 0.5 MCG PO (09:46)
[2023-08-01] MEDS: Sertraline 50 MG Tablet 25 MG PO (09:47)
[2023-08-01] MEDS: Cholecalciferol (VIT D3) 25 MCG TABLET (1,000 UNITS) PO (09:47)
[2023-08-01 12:21] LABS: Bedside Glucose 114 mg/dL (74-106)
[2023-08-01] MEDS: Menthol/Lanolin/Calamine/Znox 113 GM Tube 1 APPLIC TOPICAL ×2 (12:33→21:37)
[2023-08-01 14:39] VITALS: BP 107/42; PULSE 58; RESP 14; TEMP 36.4; O2SAT 90
[2023-08-01 16:00] VITALS: BP 107/42; PULSE 58; RESP 14; TEMP 36.4; O2SAT 92
[2023-08-01 16:52] LABS: Bedside Glucose 108 mg/dL (74-106)
[2023-08-01] MEDS: OLANZapine 2.5 MG Tablet PO (21:36)
[2023-08-01] MEDS: Doxepin Hydrochloride 10 MG Capsule PO (21:36)
[2023-08-01] MEDS: Atorvastatin Calcium 40 MG Tablet PO (21:36)
[2023-08-01 21:42] LABS: Bedside Glucose 156 mg/dL (74-106)
[2023-08-02 00:25] VITALS: PULSE 82; RESP 12; RESP 21; O2SAT 92
[2023-08-02 02:37] VITALS: O2SAT 92
[2023-08-02 06:00] VITALS: BMI 40.6
[2023-08-02 06:41] LABS: Bedside Glucose 140 mg/dL (74-106)
--- NOTE | 2023-08-02 07:59 | PN.TCU_ITS ---
Subjective Subjective Resident seen, examined. 1 week ago, nursing staff thought resident deteriorating and hospice appropriate. But over last several days, his confusion, appetite, strength improved. I spoke with resident granddaughter 4 days prior, that resident improving, and we will continue therapy. Resident granddaughter has court hearing 08/05/2023 for guardianship so she will have access to resident finances to help with discharge plan. Objective Data Objective Data Vital Signs: Vital Signs Temp Pulse Resp BP Pulse Ox O2 Del Method O2 Flow Rate 97.6 F L 82 21 H 107/42 L 92 Nasal Cannula 3 08/01/23 16:00 08/02/23 00:25 08/02/23 00:25 08/01/23 16:00 08/02/23 02:37 08/02/23 02:37 08/02/23 02:37 FiO2 92 07/04/23 19:55 Oxygen Flow Rate (L/min) [At 4 REST with Oxygen] Oxygen Flow Rate (L/min) 3 Oxygen Delivery Method Nasal Cannula Weight: 111.221 kg Body Mass Index (BMI) 40.8 Intake & Output: Intake and Output for Last 24 Hours 07/31/23 08/01/23 08/02/23 23:59 23:59 23:59 Intake Total 1440 / 1440 240 / 240 Output Total 150 / 150 Balance 1290 / 1290 240 / 240 Medical Nutrition Assessment Dietitian: Malnutrition Criteria Met Start: 07/27/23 15:44 Freq: Status: Active Protocol: Document 07/27/23 15:44 SLA (Rec: 07/27/23 15:44 SLA [id number]) Nutrition Malnutrition Evidence of Malnutrition Exists Yes Malnutrition (severe): Acute Illness/Injury Evidenced By Suboptimal Energy Intake ( Severe),Weight Loss (Severe) Clinical Problem Acute Disease or Injury Related Malnutrition Etiology related to inadequate energy intake Signs/Symptoms as evidenced by res consuming <75% of est nutritional needs x >5 days and 4.7% wt loss in past week Status Active Problem Altered Nutrient-Related Laboratory Values Etiology related to renal dysfunction Signs/Symptoms as evidenced by BUN 65, Cr 2. 37 - nephrology following Status Active Problem Biting/Chewing Difficulty Etiology related to dysphagia Signs/Symptoms as evidenced by need for mech altered diet consistency Status Active Problem Recommendation Dietitian Recommendations/Changes Will continue Cardiac, 2000 jade Controlled - consistency per APARTMENT MANAGER Will monitor for changes in res nutritional status and make additional rec as indicated Will order 4 oz glucerna shake 4x/day w/ medpass for increased nutrition if consumed Lab / Micro Data 08/01/23 07:08 08/01/23 07:08 Labs: Laboratory Results - last 24 hr 08/01/23 07:08: Sodium 139, Potassium 4.2, Chloride 112 H, Carbon Dioxide 21.0, Anion Gap 6, BUN 55 H, Creatinine 2.23 H, Estim Creat Clear Calc 22.22, Est GFR (MDRD) Af Amer 36 L, Est GFR (MDRD) Non-Af 30 L, BUN/Creatinine Ratio 24.7 H, Glucose 129 H, Calcium 9.2 08/01/23 11:51: POC Glucose 114 H 08/01/23 16:23: POC Glucose 108 H 08/01/23 21:24: POC Glucose 156 H 08/02/23 06:16: POC Glucose 140 H Micro: Microbiology 07/21/23 18:10 Urine, Catheterized Urine Culture - Final Culture exhibits no growth. 07/07/23 09:00 Urine Catheter - Catheter Urine Culture - Final Culture exhibits no growth. 07/05/23 Unknown Stool Stool Occult Blood ([facility]) - Final Physical Exam Const alert General Appearance: cooperative HEENT normocephalic Eyes PERRL and EOMs intact bilaterally Neck supple, no JVD and no carotid bruits Resp normal respiratory effort, normal air movement and clear to auscultation bilaterally Cardio regular rate and regular rhythm GI normal to inspection, nondistended, normoactive bowel sounds, non-tender and non-distended Extremity normal capillary refill General Extremity: Negative for edema Skin no rashes or lesions noted General Skin Exam: no breakdown Psych affect normal Appearance: appropriate Assessment & Plan Assessment/Plan (1) Debility: (2) Encephalopathy: (3) TIA (transient ischemic attack): (4) Dysarthria: (5) Expressive aphasia: (6) Aortic stenosis: (7) Hypertension: (8) Atrial fibrillation: (9) Obstructive sleep apnea: (10) Chronic respiratory failure: (11) Diabetes mellitus: (12) Depression: (13) GERD (gastroesophageal reflux disease): (14) Seizure disorder: (15) Coronary artery disease: PLAN: Plan 83 year old male with below past medical history hospitalized for encephalopathy, TIA, stroke ruled out, admitted to TCU with debility, here for rehabilitation, strengthening, prior to discharge home with granddaughter. * Debility - PT/OT. * Dysphagia - ST. * Pain - Tylenol 1000mg q6h prn pain (1-10). * Bowel - Senna/colace 1 tablet bid, Magnesium citrate 300ml po daily prn. * Adult immunization - Administer pneumonia vaccine, covid19 vaccine, flu vaccine as appropriate. * DVT prophylaxis - on Eliquis. * Gout - Allopurinol 150mg daily. * Atrial fibrillation - Eliquis 2.5mg bid. * Hyperlipidemia - Atorvastatin 40mg qhs. * Hyperparathyroidism - Calcitriol 0.5mg mwf. * GERD - Famotidine 20mg daily. * Edema - Furosemide 40mg every other day. * Coronary artery disease - Imdur 30mg daily, Eliquis 2.5mg bid. * Seizure disorder - Keppra 500mg bid. * Skin irritation - Calmoseptine topical bid. * Nutrition - MVI daily, Glucerna 120ml 4x/day. * Tinea Corporis - Nystatin powder topical bid. * Depression - Sertraline 25mg daily, Zyprexa 2.5mg qhs, stable chronic jail use, GDR not recommended. * Vitamin D deficiency - D3 25mcg daily. * Insomnia - Doxepin 10mg qhs prn. * Anxiety - Lorazepam 1mg q4h prn. Capacity Capacity Assessment Tool Can the patient make a choice & communicate that choice?: No Can the patient understand benefits, risks and alternatives?: No Can the patient make a logical, rational choice?: No Is the choice the patient makes consistent w/ their values?: No Is there an impending, emergent risk to the patient?: No Does the patient have an Advance Directive?: Yes Is there a Surrogate Available?: Yes i.e. HCPOA: Yes i.e. close relative (spouse, child, parent, sibling)?: Yes
[2023-08-02] MEDS: Multivitamins,Therapeutic Tablet 1 TABLET PO (11:42)
[2023-08-02] MEDS: Sertraline 50 MG Tablet 25 MG PO (11:42)
[2023-08-02] MEDS: Furosemide 40 MG Tablet PO (11:42)
[2023-08-02] MEDS: APIXABAN 2.5 MG TABLET (WCH) PO ×2 (11:42→20:49)
[2023-08-02] MEDS: Cholecalciferol (VIT D3) 25 MCG TABLET (1,000 UNITS) PO (11:43)
[2023-08-02] MEDS: levETIRAcetam Oral Solution 500 MG/5 ML PO ×2 (11:43→20:48)
[2023-08-02] MEDS: Famotidine 20 MG Tablet PO (11:43)
[2023-08-02] MEDS: Menthol/Lanolin/Calamine/Znox 113 GM Tube 1 APPLIC TOPICAL ×2 (11:43→21:03)
[2023-08-02] MEDS: Isosorbide Mononitrate 30 MG Tablet PO (11:43)
[2023-08-02] MEDS: Allopurinol 300 MG Tablet 150 MG PO (11:43)
[2023-08-02 11:44] LABS: Bedside Glucose 106 mg/dL (74-106)
[2023-08-02] MEDS: Glucerna Shake 120 ML LIQUID PO ×2 (11:44→20:57)
[2023-08-02] MEDS: Nystatin Powder 15gm Bottle 1 APPLIC TOPICAL ×2 (11:44→21:04)
[2023-08-02 12:30] VITALS: BP 129/54; PULSE 71; RESP 18; TEMP 36.8; O2SAT 93
[2023-08-02 14:20] VITALS: BP 110/60; PULSE 68
[2023-08-02 16:41] LABS: Bedside Glucose 114 mg/dL (74-106)
[2023-08-02] MEDS: Doxepin Hydrochloride 10 MG Capsule PO (20:48)
[2023-08-02] MEDS: Atorvastatin Calcium 40 MG Tablet PO (20:49)
[2023-08-02] MEDS: OLANZapine 2.5 MG Tablet PO (20:49)
[2023-08-02] MEDS: Acetaminophen 500 MG Tablet 1000 MG PO (20:54)
[2023-08-02 21:27] LABS: Bedside Glucose 106 mg/dL (74-106)
[2023-08-03 05:12] VITALS: PULSE 85; RESP 18; O2SAT 95
[2023-08-03 06:00] VITALS: BMI 40.6
[2023-08-03 06:46] LABS: Bedside Glucose 91 mg/dL (74-106)
[2023-08-03] MEDS: Allopurinol 300 MG Tablet 150 MG PO (08:06)
[2023-08-03] MEDS: levETIRAcetam Oral Solution 500 MG/5 ML PO ×2 (08:07→22:12)
[2023-08-03] MEDS: Multivitamins,Therapeutic Tablet 1 TABLET PO (08:07)
[2023-08-03] MEDS: Glucerna Shake 120 ML LIQUID PO ×4 (08:11→22:16)
[2023-08-03 08:39] VITALS: O2SAT 95
[2023-08-03] MEDS: Isosorbide Mononitrate 30 MG Tablet PO (09:03)
[2023-08-03] MEDS: Menthol/Lanolin/Calamine/Znox 113 GM Tube 1 APPLIC TOPICAL ×2 (09:03→22:14)
[2023-08-03] MEDS: APIXABAN 2.5 MG TABLET (WCH) PO ×2 (09:03→22:13)
[2023-08-03] MEDS: Furosemide 40 MG Tablet PO (09:04)
[2023-08-03] MEDS: Nystatin Powder 15gm Bottle 1 APPLIC TOPICAL ×2 (09:04→22:13)
[2023-08-03] MEDS: Famotidine 20 MG Tablet PO (09:04)
[2023-08-03] MEDS: Calcitriol 0.25 MCG Capsule 0.5 MCG PO (09:05)
[2023-08-03] MEDS: Sertraline 50 MG Tablet 25 MG PO (09:06)
[2023-08-03] MEDS: Cholecalciferol (VIT D3) 25 MCG TABLET (1,000 UNITS) PO (09:06)
[2023-08-03 11:26] LABS: Bedside Glucose 140 mg/dL (74-106)
[2023-08-03 14:06] VITALS: O2SAT 97
[2023-08-03 14:43] VITALS: BP 140/73; PULSE 60; RESP 18; TEMP 36.4; O2SAT 96
[2023-08-03 17:05] LABS: Bedside Glucose 144 mg/dL (74-106)
[2023-08-03 21:31] LABS: Bedside Glucose 162 mg/dL (74-106)
[2023-08-03] MEDS: Senna/Docusate Sodium 1 Tablet PO (22:13)
[2023-08-03] MEDS: OLANZapine 2.5 MG Tablet PO (22:13)
[2023-08-03] MEDS: Atorvastatin Calcium 40 MG Tablet PO (22:13)
[2023-08-04 06:00] VITALS: BMI 40.4
[2023-08-04 06:39] LABS: Bedside Glucose 130 mg/dL (74-106)
[2023-08-04 07:09] VITALS: O2SAT 95
[2023-08-04] MEDS: Furosemide 40 MG Tablet PO (08:51)
[2023-08-04] MEDS: Isosorbide Mononitrate 30 MG Tablet PO (08:51)
[2023-08-04] MEDS: levETIRAcetam Oral Solution 500 MG/5 ML PO ×2 (08:51→20:00)
[2023-08-04] MEDS: Sertraline 50 MG Tablet 25 MG PO (08:51)
[2023-08-04] MEDS: Famotidine 20 MG Tablet PO (08:51)
[2023-08-04] MEDS: Allopurinol 300 MG Tablet 150 MG PO (08:52)
[2023-08-04] MEDS: APIXABAN 2.5 MG TABLET (WCH) PO ×2 (08:52→20:00)
[2023-08-04] MEDS: Multivitamins,Therapeutic Tablet 1 TABLET PO (08:53)
[2023-08-04] MEDS: Cholecalciferol (VIT D3) 25 MCG TABLET (1,000 UNITS) PO (08:53)
[2023-08-04] MEDS: Menthol/Lanolin/Calamine/Znox 113 GM Tube 1 APPLIC TOPICAL ×2 (08:54→20:22)
[2023-08-04] MEDS: Nystatin Powder 15gm Bottle 1 APPLIC TOPICAL ×2 (08:55→20:21)
[2023-08-04] MEDS: Glucerna Shake 120 ML LIQUID PO ×4 (09:08→20:06)
[2023-08-04 11:23] LABS: Bedside Glucose 163 mg/dL (74-106)
[2023-08-04 14:41] VITALS: BP 101/42; PULSE 66; RESP 17; TEMP 35.7; O2SAT 100
[2023-08-04 16:45] LABS: Bedside Glucose 153 mg/dL (74-106)
[2023-08-04] MEDS: Atorvastatin Calcium 40 MG Tablet PO (20:01)
[2023-08-04] MEDS: Doxepin Hydrochloride 10 MG Capsule PO (20:01)
[2023-08-04] MEDS: OLANZapine 2.5 MG Tablet PO (20:01)
[2023-08-04] MEDS: Senna/Docusate Sodium 1 Tablet PO (20:01)
[2023-08-04] MEDS: Acetaminophen 500 MG Tablet 1000 MG PO (20:05)
[2023-08-04 20:24] VITALS: PULSE 72; RESP 16; O2SAT 99
[2023-08-04 21:41] LABS: Bedside Glucose 160 mg/dL (74-106)
[2023-08-05 06:57] LABS: Bedside Glucose 112 mg/dL (74-106)
[2023-08-05] MEDS: Allopurinol 300 MG Tablet 150 MG PO (08:06)
[2023-08-05] MEDS: Multivitamins,Therapeutic Tablet 1 TABLET PO (08:07)
[2023-08-05] MEDS: Glucerna Shake 120 ML LIQUID PO ×3 (08:08→21:06)
[2023-08-05] MEDS: Calcitriol 0.25 MCG Capsule 0.5 MCG PO (10:45)
[2023-08-05] MEDS: Senna/Docusate Sodium 1 Tablet PO ×2 (10:45→21:07)
[2023-08-05] MEDS: Furosemide 40 MG Tablet PO (10:46)
[2023-08-05] MEDS: Isosorbide Mononitrate 30 MG Tablet PO (10:46)
[2023-08-05] MEDS: Cholecalciferol (VIT D3) 25 MCG TABLET (1,000 UNITS) PO (10:46)
[2023-08-05] MEDS: levETIRAcetam Oral Solution 500 MG/5 ML PO ×2 (10:46→21:05)
[2023-08-05] MEDS: Nystatin Powder 15gm Bottle 1 APPLIC TOPICAL ×2 (10:46→21:07)
[2023-08-05] MEDS: Famotidine 20 MG Tablet PO (10:46)
[2023-08-05] MEDS: APIXABAN 2.5 MG TABLET (WCH) PO ×2 (10:46→21:05)
[2023-08-05] MEDS: Menthol/Lanolin/Calamine/Znox 113 GM Tube 1 APPLIC TOPICAL ×2 (10:47→21:05)
[2023-08-05] MEDS: Sertraline 50 MG Tablet 25 MG PO (10:48)
[2023-08-05 11:16] LABS: Bedside Glucose 90 mg/dL (74-106)
[2023-08-05 11:35] VITALS: BMI 41.0
[2023-08-05 11:41] VITALS: O2SAT 98
[2023-08-05 14:01] VITALS: PULSE 66; RESP 18; O2SAT 96
[2023-08-05 14:06] VITALS: BP 130/52; PULSE 58; RESP 18; TEMP 35.8; O2SAT 96
--- NOTE | 2023-08-05 15:36 | CASEMGMT ---
Social Work SW spoke with granddaughter in room. The granddaughter was awarded temporary guardianship. She will receive the court documents this date. Once those documents are received, gddtr can visit the bank to get a new bank account set up. The account will allow access to pt's funds and can write a check to the SNF. Then IDT can set a DC date once funds are available. Gddr agreead to plan. SW messaged [facility] to update and confirm acceptance once DC date is set. Requested SNF contact gddtr to discuss amount. Will continue to follow. SUMAYA Britt
[2023-08-05 16:21] LABS: Bedside Glucose 130 mg/dL (74-106)
[2023-08-05 20:20] VITALS: PULSE 53; RESP 12; RESP 22; O2SAT 94
[2023-08-05] MEDS: OLANZapine 2.5 MG Tablet PO (21:05)
[2023-08-05] MEDS: Atorvastatin Calcium 40 MG Tablet PO (21:06)
[2023-08-05 21:46] LABS: Bedside Glucose 160 mg/dL (74-106)
--- NOTE | 2023-08-05 22:30 | CPS ---
3L bled into bipap machine
[2023-08-06] VITALS (9 sets, daily range): BP systolic 129–143; BP diastolic 59–71; PULSE 54–83; RESP 16–19; TEMP 36–37; O2SAT 85–100
[2023-08-06] MEDS: Acetaminophen 500 MG Tablet 1000 MG PO ×2 (03:08→20:02)
[2023-08-06] MEDS: LORazepam 1 MG Tablet PO ×2 (03:08→20:02)
[2023-08-06 06:37] LABS: Bedside Glucose 99 mg/dL (74-106)
--- NOTE | 2023-08-06 07:53 | NURSING ---
Pt was found sitting on side of bed, JOINT YARNER toiled pt, changed brief and clothes, positioned pt in recliner. Within 20 min, chair alarm sounded, RN ran into room and witnessed pt sliding out of recliner to floor and bumped back of head on Cpap stand. 4 assist to stand, placed in recliner, vitals taken, skin assess, no visible injuries. Wheeled pt to dinning room 1:[address] Magallanes aware, N.O. CT scan of head w/o contract. Grace Martin and Diana will be notified via Email, Granddaughter Maria Luisa will be notified via phone, geophysical laboratory supervisor notified though [employer]
--- NOTE | 2023-08-06 08:01 | PCA ---
jose 6:45 this morning i entered room 22 room and found him sitting upright on the side of the bed so i dressed him and changed him and asked abhilash to assist me in getting him in his chair,we sat him in his chair put his feet rest up put his table infront of him for breakfast and turned on his chair alarm and started to pass breakfast trays in the middle of passing trays i noticed rooms 22s call light was on when i answered it was a nurse asking me to assist in his room when i entered he was sitting on the floor besides his chair me Anabell Brand and Yuliana took his vitals and got him back in his chair.when he was in his chair Anabell and i took him out to the front room for breakfast.
[2023-08-06] MEDS: Glucerna Shake 120 ML LIQUID PO ×5 (08:38→20:04)
[2023-08-06] MEDS: Multivitamins,Therapeutic Tablet 1 TABLET PO (08:39)
[2023-08-06] MEDS: Allopurinol 300 MG Tablet 150 MG PO (08:39)
[2023-08-06] MEDS: Sertraline 50 MG Tablet 25 MG PO (09:54)
[2023-08-06] MEDS: Senna/Docusate Sodium 1 Tablet PO ×2 (09:54→20:05)
[2023-08-06] MEDS: Cholecalciferol (VIT D3) 25 MCG TABLET (1,000 UNITS) PO (09:54)
[2023-08-06] MEDS: APIXABAN 2.5 MG TABLET (WCH) PO ×2 (09:54→20:04)
[2023-08-06] MEDS: Famotidine 20 MG Tablet PO (09:54)
[2023-08-06] MEDS: levETIRAcetam Oral Solution 500 MG/5 ML PO ×2 (09:54→20:04)
[2023-08-06] MEDS: Furosemide 40 MG Tablet PO (09:55)
[2023-08-06] MEDS: Isosorbide Mononitrate 30 MG Tablet PO (09:55)
[2023-08-06] MEDS: Menthol/Lanolin/Calamine/Znox 113 GM Tube 1 APPLIC TOPICAL ×2 (09:56→20:03)
[2023-08-06] MEDS: Nystatin Powder 15gm Bottle 1 APPLIC TOPICAL ×2 (09:56→20:05)
[2023-08-06 10:47] LABS: Bedside Glucose 127 mg/dL (74-106)
[2023-08-06 16:13] LABS: Bedside Glucose 165 mg/dL (74-106)
[2023-08-06] MEDS: Doxepin Hydrochloride 10 MG Capsule PO (20:03)
[2023-08-06] MEDS: OLANZapine 2.5 MG Tablet PO (20:04)
[2023-08-06] MEDS: Atorvastatin Calcium 40 MG Tablet PO (20:05)
[2023-08-07 06:00] VITALS: BMI 41.0
[2023-08-07 09:36] VITALS: BP 118/64; PULSE 71; RESP 18; TEMP 36.3; O2SAT 94
[2023-08-07] MEDS: Allopurinol 300 MG Tablet 150 MG PO (09:41)
[2023-08-07] MEDS: Multivitamins,Therapeutic Tablet 1 TABLET PO (09:41)
[2023-08-07] MEDS: levETIRAcetam Oral Solution 500 MG/5 ML PO ×2 (09:42→19:46)
[2023-08-07] MEDS: APIXABAN 2.5 MG TABLET (WCH) PO ×2 (09:42→19:47)
[2023-08-07] MEDS: Isosorbide Mononitrate 30 MG Tablet PO (09:42)
[2023-08-07] MEDS: Furosemide 40 MG Tablet PO (09:42)
[2023-08-07] MEDS: Sertraline 50 MG Tablet 25 MG PO (09:43)
[2023-08-07] MEDS: Cholecalciferol (VIT D3) 25 MCG TABLET (1,000 UNITS) PO (09:43)
[2023-08-07] MEDS: Famotidine 20 MG Tablet PO (09:43)
[2023-08-07] MEDS: Senna/Docusate Sodium 1 Tablet PO ×2 (09:43→19:47)
[2023-08-07] MEDS: Nystatin Powder 15gm Bottle 1 APPLIC TOPICAL ×2 (09:49→19:57)
[2023-08-07] MEDS: Menthol/Lanolin/Calamine/Znox 113 GM Tube 1 APPLIC TOPICAL ×2 (09:50→19:56)
[2023-08-07] MEDS: Glucerna Shake 120 ML LIQUID PO ×2 (17:04→19:54)
[2023-08-07] MEDS: Atorvastatin Calcium 40 MG Tablet PO (19:47)
[2023-08-07] MEDS: OLANZapine 2.5 MG Tablet PO (19:47)
[2023-08-07] MEDS: Acetaminophen 500 MG Tablet 1000 MG PO (19:49)
[2023-08-07 22:00] VITALS: RESP 18
[2023-08-07] MEDS: Doxepin Hydrochloride 10 MG Capsule PO (22:17)
[2023-08-08] MEDS: LORazepam 1 MG Tablet PO (00:17)
[2023-08-08 06:00] VITALS: BMI 40.8
[2023-08-08] MEDS: Cholecalciferol (VIT D3) 25 MCG TABLET (1,000 UNITS) PO (10:17)
[2023-08-08] MEDS: Sertraline 50 MG Tablet 25 MG PO (10:17)
[2023-08-08] MEDS: Allopurinol 300 MG Tablet 150 MG PO (10:17)
[2023-08-08] MEDS: Calcitriol 0.25 MCG Capsule 0.5 MCG PO (10:17)
[2023-08-08] MEDS: Isosorbide Mononitrate 30 MG Tablet PO (10:18)
[2023-08-08] MEDS: Multivitamins,Therapeutic Tablet 1 TABLET PO (10:18)
[2023-08-08] MEDS: Senna/Docusate Sodium 1 Tablet PO ×2 (10:18→22:31)
[2023-08-08] MEDS: Furosemide 40 MG Tablet PO (10:18)
[2023-08-08] MEDS: Famotidine 20 MG Tablet PO (10:18)
[2023-08-08] MEDS: Glucerna Shake 120 ML LIQUID PO ×3 (10:19→17:27)
[2023-08-08] MEDS: levETIRAcetam Oral Solution 500 MG/5 ML PO ×2 (10:19→22:30)
[2023-08-08] MEDS: Nystatin Powder 15gm Bottle 1 APPLIC TOPICAL ×2 (10:29→22:31)
[2023-08-08] MEDS: Menthol/Lanolin/Calamine/Znox 113 GM Tube 1 APPLIC TOPICAL ×2 (10:30→22:30)
[2023-08-08 10:31] VITALS: BP 156/42; PULSE 66
--- NOTE | 2023-08-08 10:59 | PN.RENAL_ITS ---
Subjective Subjective Resting in bed. No complaints. Objective Data Objective Data Vital Signs: Vital Signs Temp Pulse Resp BP Pulse Ox O2 Del Method O2 Flow Rate 97.3 F L 66 18 156/42 H 94 Nasal Cannula 4 08/07/23 09:36 08/08/23 10:31 08/07/23 22:00 08/08/23 10:31 08/07/23 09:36 08/08/23 10:00 08/08/23 09:03 FiO2 92 07/04/23 19:55 Oxygen Flow Rate (L/min) [At 4 REST with Oxygen] Oxygen Flow Rate (L/min) 4 Oxygen Delivery Method Nasal Cannula Weight: 111.674 kg Body Mass Index (BMI) 41.0 Intake & Output: Intake and Output for Last 24 Hours 08/06/23 08/07/23 08/08/23 23:59 23:59 23:59 Intake Total 840 / 840 840 / 840 240 / 240 Balance 840 / 840 840 / 840 240 / 240 Medical Nutrition Assessment Dietitian: Malnutrition Criteria Met Start: 07/27/23 15:44 Freq: Status: Active Protocol: Document 07/27/23 15:44 SLA (Rec: 07/27/23 15:44 SLA [id number]) Nutrition Malnutrition Evidence of Malnutrition Exists Yes Malnutrition (severe): Acute Illness/Injury Evidenced By Suboptimal Energy Intake ( Severe),Weight Loss (Severe) Clinical Problem Acute Disease or Injury Related Malnutrition Etiology related to inadequate energy intake Signs/Symptoms as evidenced by res consuming <75% of est nutritional needs x >5 days and 4.7% wt loss in past week Status Active Problem Altered Nutrient-Related Laboratory Values Etiology related to renal dysfunction Signs/Symptoms as evidenced by BUN 65, Cr 2. 37 - nephrology following Status Active Problem Biting/Chewing Difficulty Etiology related to dysphagia Signs/Symptoms as evidenced by need for mech altered diet consistency Status Active Problem Recommendation Dietitian Recommendations/Changes Will continue Cardiac, 2000 jade Controlled - consistency per SKIP PITMAN Will monitor for changes in res nutritional status and make additional rec as indicated Will order 4 oz glucerna shake 4x/day w/ medpass for increased nutrition if consumed Lab / Micro Data 08/01/23 07:08 08/01/23 07:08 Micro: Microbiology 07/21/23 18:10 Urine, Catheterized Urine Culture - Final Culture exhibits no growth. 07/07/23 09:00 Urine Catheter - Catheter Urine Culture - Final Culture exhibits no growth. 07/05/23 Unknown Stool Stool Occult Blood ([facility]) - Final Physical Exam Narrative Alert, no apparent distress S1, S2, rhythm irregular, rate controlled Lung sounds clear anteriorly. Abdomen soft, rounded, positive bowel sounds, nontender Trace edema noted bilateral lower legs Assessment & Plan Assessment/Plan (1) CKD (chronic kidney disease) stage 4, GFR 15-29 ml/min: PLAN: Plan This is a pleasant 83-year-old male with past medical history significant for diabetes mellitus type 2, hypertension, COPD, A-fib, CKD stage IV who is currently in rehab unit receiving therapy after recent hospitalization for TIA/acute encephalopathy. Patient had MRI no evidence of stroke; CT of brain showed no acute bleed or acute process. Nephrology consulted as patient has history of chronic kidney disease. Patient is followed by Dr. Han. - CKD stage IV secondary diabetic nephropathy, baseline creatinine ranging around 2.4 to 2.7 mg/dL. At this time renal function stable and at baseline, SCr 2.23/dL from 08/01. Potassium, acid-base and volume status acceptable. Renal function stable during hospitalization. At time of initial hospital admission renal function at baseline. Patient is nonoliguric and appears to be near euvolemic. Continue lasix. Patient does not need daily bmp labs. - History of HTN; blood pressures acceptable, on lasix and Imdur. - discharge planning in progress. - patient will need hospital follow-up made with his editor managing director, Dr. Han in about 1-2 months.
[2023-08-08 11:52] VITALS: BP 136/59; PULSE 71; RESP 16; TEMP 35.7; O2SAT 96
[2023-08-08] MEDS: APIXABAN 2.5 MG TABLET (WCH) PO ×2 (12:04→22:30)
[2023-08-08] MEDS: Atorvastatin Calcium 40 MG Tablet PO (22:30)
[2023-08-08] MEDS: OLANZapine 2.5 MG Tablet PO (22:30)
[2023-08-08] MEDS: Doxepin Hydrochloride 10 MG Capsule PO (22:30)
[2023-08-09 06:00] VITALS: BMI 40.8
[2023-08-09 07:25] VITALS: O2SAT 96
[2023-08-09 10:50] VITALS: BP 143/79; PULSE 71; RESP 18; TEMP 36.2; O2SAT 99
[2023-08-09] MEDS: Allopurinol 300 MG Tablet 150 MG PO (10:57)
[2023-08-09] MEDS: Multivitamins,Therapeutic Tablet 1 TABLET PO (10:57)
[2023-08-09] MEDS: Isosorbide Mononitrate 30 MG Tablet PO (10:58)
[2023-08-09] MEDS: APIXABAN 2.5 MG TABLET (WCH) PO ×2 (10:58→21:54)
[2023-08-09] MEDS: Famotidine 20 MG Tablet PO (10:59)
[2023-08-09] MEDS: Senna/Docusate Sodium 1 Tablet PO ×2 (10:59→21:53)
[2023-08-09] MEDS: Sertraline 50 MG Tablet 25 MG PO (10:59)
[2023-08-09] MEDS: Cholecalciferol (VIT D3) 25 MCG TABLET (1,000 UNITS) PO (10:59)
[2023-08-09] MEDS: Furosemide 40 MG Tablet PO (10:59)
[2023-08-09] MEDS: levETIRAcetam Oral Solution 500 MG/5 ML PO ×2 (10:59→21:56)
[2023-08-09] MEDS: Nystatin Powder 15gm Bottle 1 APPLIC TOPICAL ×2 (11:05→22:08)
[2023-08-09] MEDS: Menthol/Lanolin/Calamine/Znox 113 GM Tube 1 APPLIC TOPICAL ×2 (11:06→22:08)
[2023-08-09] MEDS: Glucerna Shake 120 ML LIQUID PO ×3 (12:23→21:56)
--- NOTE | 2023-08-09 19:40 | NURSING ---
Maria Luisa, granddaughter, notified of patient testing positive for COVID on unit.
[2023-08-09] MEDS: Atorvastatin Calcium 40 MG Tablet PO (21:54)
[2023-08-09] MEDS: OLANZapine 2.5 MG Tablet PO (21:54)
[2023-08-09] MEDS: Doxepin Hydrochloride 10 MG Capsule PO (22:01)
[2023-08-09] MEDS: Acetaminophen 500 MG Tablet 1000 MG PO (22:02)
[2023-08-10 06:27] LABS: Bedside Glucose 113 mg/dL (74-106)
[2023-08-10 09:20] LABS: Absolute Lymphocyte Count 1.95 X10^3/uL (0.83-4.51); Basophil# 0.04 X10^3/uL; Basophil% 0.5 % (0-1); Eosinophil# 0.19 X10^3/uL; Eosinophils% 2.2 % (0-5); Hematocrit 34.8 % (40-54); Hemoglobin 10.9 g/dL (13.0-16.5); Lymphocyte # 1.95 X10^3/ul (0.83-4.51); Lymphocyte % 22.5 % (19-41); Mean Corp Hgb Conc 31.3 g/dL (32-36); Mean Corpuscular Hgb 31.2 pg (27.0-32.0); Mean Corpuscular Volume 99.7 fL (80-94); Mean Platelet Vol. 10.6 fl (6.2-12.0); Monocyte# 0.45 X10^3/uL; Monocyte% 5.2 % (0-10); NRBC Flagged by Analyzer 0 % (0-5); Neutrophil # 6.01 X10^3/uL (2.7-7.7); Neutrophil % 69.3 % (47-70); Platelet Count 136 K/mm3 (150-450); RBC Distribution Width CV 14.4 % (11.6-14.6); RBC Distribution Width SD 51.8 fl (35.1-43.9); Red Blood Count 3.49 M/mm3 (4.6-6.2); White Blood Count 8.7 K/mm3 (4.4-11.0)
[2023-08-10] MEDS: LORazepam 1 MG Tablet PO ×2 (09:23→20:38)
[2023-08-10] MEDS: Sertraline 50 MG Tablet 25 MG PO (09:23)
[2023-08-10] MEDS: Cholecalciferol (VIT D3) 25 MCG TABLET (1,000 UNITS) PO (09:24)
[2023-08-10] MEDS: Famotidine 20 MG Tablet PO (09:24)
[2023-08-10] MEDS: Allopurinol 300 MG Tablet 150 MG PO (09:24)
[2023-08-10] MEDS: Senna/Docusate Sodium 1 Tablet PO ×2 (09:24→20:39)
[2023-08-10] MEDS: Furosemide 40 MG Tablet PO (09:24)
[2023-08-10] MEDS: Multivitamins,Therapeutic Tablet 1 TABLET PO (09:24)
[2023-08-10] MEDS: APIXABAN 2.5 MG TABLET (WCH) PO ×2 (09:25→20:39)
[2023-08-10] MEDS: levETIRAcetam Oral Solution 500 MG/5 ML PO ×2 (09:25→20:36)
[2023-08-10] MEDS: Isosorbide Mononitrate 30 MG Tablet PO (09:25)
[2023-08-10] MEDS: Calcitriol 0.25 MCG Capsule 0.5 MCG PO (09:26)
[2023-08-10] MEDS: Glucerna Shake 120 ML LIQUID PO ×4 (09:30→20:35)
[2023-08-10] MEDS: Menthol/Lanolin/Calamine/Znox 113 GM Tube 1 APPLIC TOPICAL ×2 (09:35→20:48)
[2023-08-10] MEDS: Nystatin Powder 15gm Bottle 1 APPLIC TOPICAL ×2 (09:36→20:47)
[2023-08-10 09:41] VITALS: BP 118/69; PULSE 74
[2023-08-10 09:48] LABS: Anion Gap 6 (5-15); BUN 52 mg/dL (7-18); BUN/Creat Ratio 22.1 RATIO (10-20); Calcium,Total 9.7 mg/dL (8.5-10.1); Chloride 106 mmol/L (98-107); Creatinine, Serum 2.35 mg/dL (0.70-1.30); EST Glomerular Filtration Rate 28 mL/min (>60); Est Glom Filt Rate - Afr Amer 34 mL/min (>60); Estimated Creatinine Clearance 21.08 ml/min; Glucose 188 mg/dL (74-106); Potassium 4.1 mmol/L (3.5-5.1); Sodium Level 138 mmol/L (136-145)
[2023-08-10 12:32] VITALS: O2SAT 99
[2023-08-10 15:40] VITALS: BP 147/74; PULSE 68; RESP 16; TEMP 36.3; O2SAT 100
--- NOTE | 2023-08-10 16:19 | CPS ---
Patient wears 3L oxygen with CPAP H.S.
[2023-08-10 20:14] VITALS: PULSE 81; RESP 18; O2SAT 92
[2023-08-10 20:37] VITALS: O2SAT 92
[2023-08-10] MEDS: Atorvastatin Calcium 40 MG Tablet PO (20:39)
[2023-08-10] MEDS: OLANZapine 2.5 MG Tablet PO (20:40)
[2023-08-10] MEDS: Doxepin Hydrochloride 10 MG Capsule PO (20:44)
[2023-08-10] MEDS: Acetaminophen 500 MG Tablet 1000 MG PO (22:36)
[2023-08-11] MEDS: LORazepam 1 MG Tablet PO (01:34)
[2023-08-11 06:25] LABS: Bedside Glucose 105 mg/dL (74-106)
[2023-08-11] MEDS: levETIRAcetam Oral Solution 500 MG/5 ML PO ×2 (09:22→21:20)
[2023-08-11] MEDS: Furosemide 40 MG Tablet PO (09:22)
[2023-08-11] MEDS: Cholecalciferol (VIT D3) 25 MCG TABLET (1,000 UNITS) PO (09:22)
[2023-08-11] MEDS: Sertraline 50 MG Tablet 25 MG PO (09:22)
[2023-08-11] MEDS: Multivitamins,Therapeutic Tablet 1 TABLET PO (09:22)
[2023-08-11] MEDS: APIXABAN 2.5 MG TABLET (WCH) PO ×2 (09:22→21:20)
[2023-08-11] MEDS: Senna/Docusate Sodium 1 Tablet PO (09:22)
[2023-08-11] MEDS: Famotidine 20 MG Tablet PO (09:22)
[2023-08-11] MEDS: Isosorbide Mononitrate 30 MG Tablet PO (09:22)
[2023-08-11] MEDS: Allopurinol 300 MG Tablet 150 MG PO (09:23)
[2023-08-11] MEDS: Glucerna Shake 120 ML LIQUID PO ×2 (09:37→12:13)
[2023-08-11] MEDS: Nystatin Powder 15gm Bottle 1 APPLIC TOPICAL ×2 (09:38→21:26)
[2023-08-11] MEDS: Menthol/Lanolin/Calamine/Znox 113 GM Tube 1 APPLIC TOPICAL ×2 (09:39→21:26)
[2023-08-11 09:53] VITALS: BP 132/63; PULSE 68
[2023-08-11 14:00] VITALS: O2SAT 94
[2023-08-11 15:49] VITALS: BP 115/61; PULSE 65; RESP 18; TEMP 37; O2SAT 96
--- NOTE | 2023-08-11 17:04 | NURSING ---
Maria Luisa (granddaughter) updated that staff members tested covid positive.
[2023-08-11] MEDS: OLANZapine 2.5 MG Tablet PO (21:20)
[2023-08-11] MEDS: Atorvastatin Calcium 40 MG Tablet PO (21:20)
[2023-08-11 22:00] VITALS: PULSE 76; RESP 16; O2SAT 96
[2023-08-12 06:47] LABS: Bedside Glucose 96 mg/dL (74-106)
[2023-08-12] MEDS: Glucerna Shake 120 ML LIQUID PO ×4 (08:22→22:39)
[2023-08-12] MEDS: levETIRAcetam Oral Solution 500 MG/5 ML PO ×2 (08:23→22:33)
[2023-08-12] MEDS: Sertraline 50 MG Tablet 25 MG PO (08:25)
[2023-08-12] MEDS: Isosorbide Mononitrate 30 MG Tablet PO (08:25)
[2023-08-12] MEDS: Famotidine 20 MG Tablet PO (08:25)
[2023-08-12] MEDS: Cholecalciferol (VIT D3) 25 MCG TABLET (1,000 UNITS) PO (08:25)
[2023-08-12] MEDS: Furosemide 40 MG Tablet PO (08:26)
[2023-08-12] MEDS: Calcitriol 0.25 MCG Capsule 0.5 MCG PO (08:26)
[2023-08-12] MEDS: Allopurinol 300 MG Tablet 150 MG PO (08:26)
[2023-08-12] MEDS: Multivitamins,Therapeutic Tablet 1 TABLET PO (08:26)
[2023-08-12] MEDS: APIXABAN 2.5 MG TABLET (WCH) PO ×2 (08:27→22:33)
[2023-08-12] MEDS: Menthol/Lanolin/Calamine/Znox 113 GM Tube 1 APPLIC TOPICAL ×2 (08:43→22:34)
[2023-08-12] MEDS: Nystatin Powder 15gm Bottle 1 APPLIC TOPICAL ×2 (08:44→22:34)
[2023-08-12 09:24] VITALS: O2SAT 96
[2023-08-12 16:00] VITALS: BP 129/64; PULSE 62; RESP 18; TEMP 36.1
--- NOTE | 2023-08-12 16:16 | NURSING ---
Updated family that staff members and patients tested covid positive.
[2023-08-12 22:00] VITALS: PULSE 78; RESP 20; O2SAT 95
[2023-08-12] MEDS: Senna/Docusate Sodium 1 Tablet PO (22:33)
[2023-08-12] MEDS: Doxepin Hydrochloride 10 MG Capsule PO (22:33)
[2023-08-12] MEDS: OLANZapine 2.5 MG Tablet PO (22:33)
[2023-08-12] MEDS: Atorvastatin Calcium 40 MG Tablet PO (22:33)
[2023-08-13] MEDS: LORazepam 1 MG Tablet PO ×3 (05:32→22:22)
[2023-08-13 05:38] VITALS: PULSE 76; RESP 18; O2SAT 93
[2023-08-13 05:44] VITALS: BMI 40.6
[2023-08-13 06:35] LABS: Bedside Glucose 113 mg/dL (74-106)
[2023-08-13] MEDS: Multivitamins,Therapeutic Tablet 1 TABLET PO (08:14)
[2023-08-13] MEDS: Glucerna Shake 120 ML LIQUID PO ×4 (08:14→20:30)
[2023-08-13] MEDS: Allopurinol 300 MG Tablet 150 MG PO (08:15)
[2023-08-13] MEDS: Sertraline 50 MG Tablet 25 MG PO (09:47)
[2023-08-13] MEDS: Senna/Docusate Sodium 1 Tablet PO ×2 (09:48→20:31)
[2023-08-13] MEDS: Isosorbide Mononitrate 30 MG Tablet PO (09:48)
[2023-08-13] MEDS: levETIRAcetam Oral Solution 500 MG/5 ML PO ×2 (09:48→20:28)
[2023-08-13] MEDS: Cholecalciferol (VIT D3) 25 MCG TABLET (1,000 UNITS) PO (09:48)
[2023-08-13] MEDS: APIXABAN 2.5 MG TABLET (WCH) PO ×2 (09:48→20:30)
[2023-08-13] MEDS: Famotidine 20 MG Tablet PO (09:48)
[2023-08-13] MEDS: Menthol/Lanolin/Calamine/Znox 113 GM Tube 1 APPLIC TOPICAL ×2 (09:48→20:32)
[2023-08-13] MEDS: Furosemide 40 MG Tablet PO (09:48)
[2023-08-13] MEDS: Nystatin Powder 15gm Bottle 1 APPLIC TOPICAL ×2 (09:49→20:34)
[2023-08-13 12:05] LABS: Bedside Glucose 132 mg/dL (74-106)
--- NOTE | 2023-08-13 13:28 | NURSING ---
GRANDDAUGHTER CALLED IN REPORTING SHE TESTED POSITIVE FOR COVID. PT PLACED IN ENHANCED PRECAUTIONS. WELDER FIRST CLASS NOTIFIED.
[2023-08-13] MEDS: Acetaminophen 500 MG Tablet 1000 MG PO ×2 (15:18→22:22)
[2023-08-13 16:00] VITALS: BP 133/61; PULSE 84; RESP 14; TEMP 36.8; O2SAT 94
[2023-08-13 16:45] VITALS: O2SAT 95
[2023-08-13 17:48] LABS: Bedside Glucose 136 mg/dL (74-106)
[2023-08-13] MEDS: Atorvastatin Calcium 40 MG Tablet PO (20:29)
[2023-08-13] MEDS: OLANZapine 2.5 MG Tablet PO (20:31)
[2023-08-13] MEDS: Doxepin Hydrochloride 10 MG Capsule PO (22:22)
--- NOTE | 2023-08-14 02:27 | CPS ---
did not want to wear bipap at this time
[2023-08-14 06:21] LABS: Bedside Glucose 97 mg/dL (74-106)
[2023-08-14 09:55] VITALS: RESP 17; O2SAT 94
[2023-08-14] MEDS: Glucerna Shake 120 ML LIQUID PO ×2 (10:52→22:41)
[2023-08-14] MEDS: Menthol/Lanolin/Calamine/Znox 113 GM Tube 1 APPLIC TOPICAL ×2 (10:54→22:32)
[2023-08-14] MEDS: Nystatin Powder 15gm Bottle 1 APPLIC TOPICAL ×2 (10:55→22:35)
--- NOTE | 2023-08-14 15:31 | NURSING ---
Telephone call to Pt's next of kin to make aware of new covid positive cases.
[2023-08-14 16:00] VITALS: BP 168/64; PULSE 64; RESP 16; TEMP 35.9; O2SAT 95
[2023-08-14] MEDS: APIXABAN 2.5 MG TABLET (WCH) PO (22:33)
[2023-08-14] MEDS: levETIRAcetam Oral Solution 500 MG/5 ML PO (22:34)
[2023-08-14] MEDS: Atorvastatin Calcium 40 MG Tablet PO (22:35)
[2023-08-14] MEDS: Senna/Docusate Sodium 1 Tablet PO (22:36)
[2023-08-14] MEDS: OLANZapine 2.5 MG Tablet PO (22:36)
[2023-08-15 06:51] LABS: Bedside Glucose 93 mg/dL (74-106)
[2023-08-15 07:00] VITALS: PULSE 86; RESP 16; O2SAT 97
[2023-08-15] MEDS: levETIRAcetam Oral Solution 500 MG/5 ML PO ×2 (09:41→23:39)
[2023-08-15] MEDS: Furosemide 40 MG Tablet PO (09:41)
[2023-08-15] MEDS: Allopurinol 300 MG Tablet 150 MG PO (09:41)
[2023-08-15] MEDS: Isosorbide Mononitrate 30 MG Tablet PO (09:41)
[2023-08-15] MEDS: Cholecalciferol (VIT D3) 25 MCG TABLET (1,000 UNITS) PO (09:42)
[2023-08-15] MEDS: Famotidine 20 MG Tablet PO (09:42)
[2023-08-15] MEDS: Senna/Docusate Sodium 1 Tablet PO (09:42)
[2023-08-15] MEDS: APIXABAN 2.5 MG TABLET (WCH) PO ×2 (09:42→23:40)
[2023-08-15] MEDS: Sertraline 50 MG Tablet 25 MG PO (09:42)
[2023-08-15] MEDS: Glucerna Shake 120 ML LIQUID PO ×2 (09:43→23:39)
[2023-08-15] MEDS: Multivitamins,Therapeutic Tablet 1 TABLET PO (09:43)
[2023-08-15] MEDS: Nystatin Powder 15gm Bottle 1 APPLIC TOPICAL ×2 (09:44→23:41)
[2023-08-15] MEDS: Menthol/Lanolin/Calamine/Znox 113 GM Tube 1 APPLIC TOPICAL ×2 (09:44→23:41)
[2023-08-15] MEDS: Calcitriol 0.25 MCG Capsule 0.5 MCG PO (09:45)
[2023-08-15 15:19] VITALS: BP 104/63; PULSE 73; RESP 16; TEMP 36.2; O2SAT 93
--- NOTE | 2023-08-15 16:32 | NURSING ---
Family given update additional staff members have covid.
[2023-08-15 17:28] VITALS: O2SAT 93
[2023-08-15] MEDS: OLANZapine 2.5 MG Tablet PO (23:40)
[2023-08-15] MEDS: Atorvastatin Calcium 40 MG Tablet PO (23:40)
[2023-08-16 06:28] LABS: Bedside Glucose 118 mg/dL (74-106)
[2023-08-16 10:00] VITALS: RESP 18; O2SAT 96
[2023-08-16 10:25] VITALS: O2SAT 98
[2023-08-16 10:41] VITALS: O2SAT 99
[2023-08-16] MEDS: Menthol/Lanolin/Calamine/Znox 113 GM Tube 1 APPLIC TOPICAL ×2 (11:03→20:53)
[2023-08-16] MEDS: Sertraline 50 MG Tablet 25 MG PO (11:03)
[2023-08-16] MEDS: Furosemide 40 MG Tablet PO (11:05)
[2023-08-16] MEDS: Multivitamins,Therapeutic Tablet 1 TABLET PO (11:06)
[2023-08-16] MEDS: Isosorbide Mononitrate 30 MG Tablet PO (11:06)
[2023-08-16] MEDS: Famotidine 20 MG Tablet PO (11:06)
[2023-08-16] MEDS: Allopurinol 300 MG Tablet 150 MG PO (11:06)
[2023-08-16] MEDS: APIXABAN 2.5 MG TABLET (WCH) PO ×2 (11:07→20:52)
[2023-08-16] MEDS: Cholecalciferol (VIT D3) 25 MCG TABLET (1,000 UNITS) PO (11:08)
[2023-08-16] MEDS: levETIRAcetam Oral Solution 500 MG/5 ML PO ×2 (11:08→20:53)
--- NOTE | 2023-08-16 13:10 | CASEMGMT ---
Social Work SW phoned gdtr to follow up on her health and access to pt's funds. Gdtr sounded sick on the phone but has the paperwork from the energy attorney in place, she just needs to go to the bank. Gdtr agreed once she can get to the bank, she will call this worker, access the funds to pay [employer]. ERICA updated [facility] [place] and sent new clinicals. Goal DC within two weeks. Will continue to follow. SUMAYA Britt
[2023-08-16 13:12] VITALS: O2SAT 99
[2023-08-16] MEDS: Glucerna Shake 120 ML LIQUID PO (17:37)
[2023-08-16] MEDS: Atorvastatin Calcium 40 MG Tablet PO (20:53)
[2023-08-16] MEDS: Nystatin Powder 15gm Bottle 1 APPLIC TOPICAL (20:54)
[2023-08-16] MEDS: OLANZapine 2.5 MG Tablet PO (20:54)
[2023-08-16] MEDS: Acetaminophen 500 MG Tablet 1000 MG PO (20:57)
[2023-08-16] MEDS: LORazepam 1 MG Tablet PO (20:58)
[2023-08-16 21:12] VITALS: BP 136/69; PULSE 70; RESP 19; TEMP 36.8; O2SAT 100
[2023-08-17] MEDS: Doxepin Hydrochloride 10 MG Capsule PO ×2 (01:43→22:08)
[2023-08-17 06:00] VITALS: BMI 39.9
[2023-08-17 06:38] LABS: Bedside Glucose 117 mg/dL (74-106)
[2023-08-17] MEDS: Glucerna Shake 120 ML LIQUID PO ×2 (08:39→22:24)
[2023-08-17] MEDS: Allopurinol 300 MG Tablet 150 MG PO (08:40)
[2023-08-17] MEDS: Multivitamins,Therapeutic Tablet 1 TABLET PO (08:40)
[2023-08-17] MEDS: Isosorbide Mononitrate 30 MG Tablet PO (10:41)
[2023-08-17] MEDS: APIXABAN 2.5 MG TABLET (WCH) PO ×2 (10:41→22:06)
[2023-08-17] MEDS: Famotidine 20 MG Tablet PO (10:42)
[2023-08-17] MEDS: Furosemide 40 MG Tablet PO (10:42)
[2023-08-17] MEDS: levETIRAcetam Oral Solution 500 MG/5 ML PO ×2 (10:42→22:06)
[2023-08-17] MEDS: Calcitriol 0.25 MCG Capsule 0.5 MCG PO (10:42)
[2023-08-17] MEDS: Senna/Docusate Sodium 1 Tablet PO ×2 (10:43→22:06)
[2023-08-17] MEDS: Sertraline 50 MG Tablet 25 MG PO (10:43)
[2023-08-17] MEDS: Cholecalciferol (VIT D3) 25 MCG TABLET (1,000 UNITS) PO (10:44)
[2023-08-17] MEDS: Menthol/Lanolin/Calamine/Znox 113 GM Tube 1 APPLIC TOPICAL ×2 (10:45→22:07)
[2023-08-17] MEDS: Nystatin Powder 15gm Bottle 1 APPLIC TOPICAL ×2 (10:45→22:07)
[2023-08-17 16:00] VITALS: BP 117/71; PULSE 64; RESP 16; O2SAT 99
[2023-08-17 17:59] VITALS: BMI 39.9
[2023-08-17] MEDS: Atorvastatin Calcium 40 MG Tablet PO (22:06)
[2023-08-17] MEDS: OLANZapine 2.5 MG Tablet PO (22:06)
[2023-08-18 06:36] LABS: Bedside Glucose 126 mg/dL (74-106)
[2023-08-18 09:32] LABS: Absolute Lymphocyte Count 1.56 X10^3/uL (0.83-4.51); Absolute Neutrophil Count 6.8 X10^3/uL (2.0-7.7); Basophil# 0.04 X10^3/uL; Basophil% 0.4 % (0-1); Eosinophil# 0.17 X10^3/uL; Eosinophils% 1.9 % (0-5); Hematocrit 33.5 % (40-54); Hemoglobin 10.9 g/dL (13.0-16.5); Lymphocyte # 1.56 X10^3/ul (0.83-4.51); Lymphocyte % 17.1 % (19-41); Mean Corp Hgb Conc 32.5 g/dL (32-36); Mean Corpuscular Hgb 31.9 pg (27.0-32.0); Mean Platelet Vol. 10.5 fl (6.2-12.0); Monocyte# 0.54 X10^3/uL; Monocyte% 5.9 % (0-10); NRBC Flagged by Analyzer 0 % (0-5); Neutrophil # 6.76 X10^3/uL (2.7-7.7); Neutrophil % 74.4 % (47-70); Platelet Count 147 K/mm3 (150-450); RBC Distribution Width SD 50.4 fl (35.1-43.9); Red Blood Count 3.42 M/mm3 (4.6-6.2); White Blood Count 9.1 K/mm3 (4.4-11.0)
[2023-08-18 10:36] LABS: ALB/GLOB Ratio 0.7 RATIO (0.9-2.4); AST(SGOT) 18 U/L (15-37); Alanine Aminotransfer ALT/SGPT 18 U/L (16-61); Alkaline Phosphatase 130 U/L (45-117); Anion Gap 6 (5-15); BUN 43 mg/dL (7-18); BUN/Creat Ratio 19.5 RATIO (10-20); Calcium,Total 9.4 mg/dL (8.5-10.1); Chloride 106 mmol/L (98-107); EST Glomerular Filtration Rate 31 mL/min (>60); Est Glom Filt Rate - Afr Amer 37 mL/min (>60); Estimated Creatinine Clearance 22.52 ml/min; Globulin 4.1 g/dL (2.2-4.2); Glucose 144 mg/dL (74-106); Potassium 4.2 mmol/L (3.5-5.1); Protein, Total 7.1 g/dL (6.4-8.2); Sodium Level 139 mmol/L (136-145)
[2023-08-18] MEDS: Multivitamins,Therapeutic Tablet 1 TABLET PO (10:37)
[2023-08-18] MEDS: levETIRAcetam Oral Solution 500 MG/5 ML PO (10:37)
[2023-08-18] MEDS: Famotidine 20 MG Tablet PO (10:37)
[2023-08-18] MEDS: Allopurinol 300 MG Tablet 150 MG PO (10:37)
[2023-08-18] MEDS: Sertraline 50 MG Tablet 25 MG PO (10:37)
[2023-08-18] MEDS: Nystatin Powder 15gm Bottle 1 APPLIC TOPICAL (10:38)
[2023-08-18] MEDS: Menthol/Lanolin/Calamine/Znox 113 GM Tube 1 APPLIC TOPICAL (10:38)
[2023-08-18] MEDS: Senna/Docusate Sodium 1 Tablet PO (10:38)
[2023-08-18] MEDS: Cholecalciferol (VIT D3) 25 MCG TABLET (1,000 UNITS) PO (10:38)
[2023-08-18] MEDS: Furosemide 40 MG Tablet PO (10:38)
[2023-08-18] MEDS: APIXABAN 2.5 MG TABLET (WCH) PO (10:38)
[2023-08-18] MEDS: Isosorbide Mononitrate 30 MG Tablet PO (10:38)
--- NOTE | 2023-08-18 11:08 | CT_ITS ---
STUDY: CT HEAD STROKE PROTOCOL W/O CONTRAST INJECTION REASON FOR EXAM: Male, 83 years old. ENCEPHALOPATHY RADIATION DOSAGE (If Supplied By Facility): CTDIvol = ( 44.99 ) mGy, DLP = ( 866.41 ) mGycm TECHNIQUE: Transaxial CT imaging of the brain was performed without administration of intravenous contrast material. Individualized dose optimization techniques were used for this CT. COMPARISON: Comparison is made with prior study dated August 06, 2023. FINDINGS: Normal soft tissue structures. Normal calvarium. There is moderate cerebral atrophy with widening of the extra-axial spaces and ventricular dilatation. There are areas of decreased attenuation within the white matter tracts of the supratentorial brain, consistent with microvascular disease changes. There are small punctate calcifications of the basal ganglia which are seen in the aging brain as a normal variant. Normal brainstem. There is mild cerebellar atrophy. There is no intracranial hemorrhage. There are no findings of an acute ischemic infarction. Atherosclerotic calcification of the vertebral arteries and cavernous portions of the internal carotid arteries bilaterally. Normal visualized paranasal sinuses. ASPECT score: 10
[2023-08-18 11:44] LABS: Bedside Glucose 147 mg/dL (74-106)
--- NOTE | 2023-08-18 20:08 | DS.PCM_ITS ---
Providers Date of Admission: 07/03/23 Primary Care Physician: Dr. Rios Downey, DO Consultations 07/08/23 08:16 Consult: Nephrology Routine Consulting Provider: Clay Berry Reason for Consult: Acute on chronic kidney failure, congestive heart failure EMERGENT Consult: No MD Notified: Yes Date Notified: 07/08/23 Time Notified: 08:16 Method of Notification: Verbal 07/12/23 08:44 Consult: Hospice / Palliative Care Routine Consulting Provider: [facility] Reason for Consult: Protracted confusion. EMERGENT Consult: No MD Notified: No Date Notified: 07/12/23 Time Notified: 08:44 Reason For Visit: ENCEPHALOPATHY Diagnosis Discharge Diagnosis (1) CKD (chronic kidney disease) stage 4, GFR 15-29 ml/min: Status: Chronic Code(s): N18.4 - Chronic kidney disease, stage 4 (severe) Plan 83 year old male with below past medical history hospitalized for encephalop athy, TIA, stroke ruled out, admitted to TCU with debility, here for rehabilitation, strengthening, prior to discharge home with granddaughter. * Debility - PT/OT. * Dysphagia - ST. * Pain - Tylenol 1000mg q6h prn pain (1-10). * Bowel - Senna/colace 1 tablet bid, Magnesium citrate 300ml po daily prn. * Adult immunization - Administer pneumonia vaccine, covid19 vaccine, flu vaccine as appropriate. * DVT prophylaxis - on Eliquis. * Gout - Allopurinol 150mg daily. * Atrial fibrillation - Eliquis 2.5mg bid. * Hyperlipidemia - Atorvastatin 40mg qhs. * Hyperparathyroidism - Calcitriol 0.5mg mwf. * GERD - Famotidine 20mg daily. * Edema - Furosemide 40mg every other day. * Coronary artery disease - Imdur 30mg daily, Eliquis 2.5mg bid. * Seizure disorder - Keppra 500mg bid. * Skin irritation - Calmoseptine topical bid. * Nutrition - MVI daily, Glucerna 120ml 4x/day. * Tinea Corporis - Nystatin powder topical bid. 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 * Vitamin D deficiency - D3 25mcg daily. * Insomnia - Doxepin 10mg qhs prn. * Anxiety - Lorazepam 1mg q4h prn. Medications at Discharge Home Medications aspirin 81 mg tablet,delayed release 81 mg PO DAILY HEART HEALTH 07/11/16 atorvastatin 40 mg tablet 40 mg PO QHS CHOLSTEROL 07/11/16 multivitamin 1 ea PO DAILY HEALTH MAINTENANCE 07/11/16 insulin regular human 100 unit/mL injection solution 25 unit subcut BID DIABETES 07/24/16 cholecalciferol (vitamin D3) 25 mcg (1,000 unit) tablet 25 mcg PO DAILY SUPPLEMENT 10/26/16 sertraline 25 mg tablet 25 mg PO DAILY DEPRESSION 01/10/18 insulin NPH isoph U-100 human 100 unit/mL subcutaneous suspension 25 unit subcut BID DIABETES 03/08/18 famotidine 20 mg tablet 20 mg PO DAILY GERD 11/13/19 olanzapine 2.5 mg tablet 2.5 mg PO QHS DEPRESSION 11/13/19 allopurinol 300 mg tablet 150 mg PO DAILY GOUT 12/07/21 apixaban 2.5 mg tablet (Eliquis) 2.5 mg PO BID BLOOD THINNER 10/07/22 calcitriol 0.25 mcg capsule 0.5 mcg PO MOWEFR SUPPLEMENT 10/07/22 isosorbide mononitrate 30 mg tablet,extended release 24 hr 30 mg PO DAILY HEART #90 tabs 02/01/23 potassium chloride 20 mEq tablet,extended release 20 meq PO DAILY potassium #1 TAB 07/03/23 psyllium husk (aspartame) 3 gram oral powder packet (Daily Fiber (psyllium- aspartame)) 1 packet PO BID constipation #0 ea 07/03/23 doxepin 10 mg capsule 10 mg PO DAILY 08/18/23 furosemide 40 mg tablet (Lasix) 40 mg PO DAILY water pill 08/18/23 levetiracetam 100 mg/mL oral solution (Keppra) 500 mg PO BID 08/18/23 menthol 0.44 %-zinc oxide 20.6 % topical ointment (Calmoseptine) 1 applic topical BID 08/18/23 nystatin 100,000 unit/gram topical powder (Nystop) 1 applic topical BID 08/18/23 sennosides 8.6 mg-docusate sodium 50 mg tablet (2-in-1 Laxative) 1 tab-cap PO BID 08/18/23 Hospital Course Operations None Procedures None Summary of Care Provided Minutes Spent on Discharge: 15 Hospital Course: 83 year old male with below past medical history hospitalized for encephalopathy, TIA, stroke ruled out, admitted to TCU with debility, here for rehabilitation, strengthening, prior to discharge home with granddaughter. 08/18/2023 Resident had stroke symptoms. Discharge to [facility] Emergency Department for evaluation, admission to hospital. Weight / BMI Weight Weight: 108.862 kg Body Mass Index (BMI) 39.9 ABG / Lab / Microbiology Data 08/18/23 09:13 08/18/23 09:13 Laboratory: Laboratory Results - last 24 hr 08/18/23 06:17: POC Glucose 126 H 08/18/23 09:13: WBC 9.1, RBC 3.42 L, Hgb 10.9 L, Hct 33.5 L, MCV 98.0 H, MCH 31. 9, MCHC 32.5, RDW Std Deviation 50.4 H, RDW Coeff of Yeny 14.0, Plt Count 147 L, MPV 10.5, Immature Gran % (Auto) 0.300, Neut % (Auto) 74.4 H, Lymph % (Auto) 17.1 L, [place] % (Auto) 5.9, Eos % (Auto) 1.9, Baso % (Auto) 0.4, Absolute Neuts (auto) 6.8, Absolute Lymphs (auto) 1.56, Nucleated RBC % 0, Sodium 139, Potassium 4.2, Chloride 106, Carbon Dioxide 27.0, Anion Gap 6, BUN 43 H, Creatinine 2.20 H, Estim Creat Clear Calc 22.52, Est GFR (MDRD) Af Amer 37 L, Est GFR (MDRD) Non-Af 31 L, BUN/Creatinine Ratio 19.5, Glucose 144 H, Calcium 9.4, Total Bilirubin 0.70, AST 18, ALT 18, Alkaline Phosphatase 130 H, Total Protein 7.1, Albumin 3.0 L, Globulin 4.1, Albumin/Globulin Ratio 0.7 L 08/18/23 10:47: POC Glucose 147 H Microbiology: Microbiology 08/17/23 04:05 Nasal Secretion SARS-CoV-2 Antigen (Rapid) - Final 08/14/23 06:30 Nasal Secretion SARS-CoV-2 Antigen (Rapid) - Final 08/12/23 05:40 Nasal Secretion SARS-CoV-2 Antigen (Rapid) - Final 08/09/23 22:45 Nasal Secretion SARS-CoV-2 Antigen (Rapid) - Final 07/21/23 18:10 Urine, Catheterized Urine Culture - Final Culture exhibits no growth. 07/07/23 09:00 Urine Catheter - Catheter Urine Culture - Final Culture exhibits no growth. 07/05/23 Unknown Stool Stool Occult Blood (AYUSH) - Final Radiography Diagnostic Testing: Radiology Impression Brain CT 08/18/23 11:08 IMPRESSION: Chronic involutional changes of the brain. N.B. : The above Results were Read Back by Mahendra Canada MD to Dr Marquise MD, and understanding confirmed on 08/18/2023 11:28:31 (ET). Electronically Signed: Mahendra Canada MD at 11:29 EDT Reading Location ID and State: [facility] / [place] , Service support , D/C Instructions Discharge Diet: No restrictions Discharge Activity: Return to Normal Activity, May Shower and Use Walker Weight Bearing Status: Weight bearing as tolerated Call your doctor if you observe: Fever of 101 or Higher, Inability to urinate, Inability to have a bowel movement, Shortness of breath, Dizziness, Fainting spells, Swelling in the ankles, Chest pain and Uncontrolled pain Additional Instructions: Discharge to [facility] Emergency Department for evaluation, admission to hospital. Please Follow Up With: Infusion Center Meaningful Use Info Meaningful Use Diagnoses (Choose all that apply): None applicable Discharge Plan Admission Admit Date/Time: 07/03/23 13:45 Primary Reason for Your Visit: Debility. Attending Provider: Jeremy Magallanes Chi Primary Care Provider: Rios Downey Consulting Providers: Clay Berry Instructions Additional Instructions / Restrictions: Discharge to [facility] Emergency Department for evaluation, admission to hospital. Discharge Orders/Prescriptions Prescriptions: No Action famotidine 20 mg tablet 20 mg PO DAILY olanzapine 2.5 mg tablet 2.5 mg PO QHS Eliquis 2.5 mg tablet 2.5 mg PO BID atorvastatin 40 MG tablet 40 mg PO QHS aspirin 81 MG tablet,delayed release (DR/EC) 81 mg PO DAILY Patient Comments: multivitamin 1 EACH tablet 1 ea PO DAILY insulin regular human 100 UNIT/ML solution 25 unit SC BID Patient Comments: afternoon and night insulin NPH isoph U-100 human 100 unit/mL suspension 25 unit SC BID cholecalciferol (vitamin D3) 1,000 UNIT tablet 25 mcg PO DAILY sertraline 25 MG tablet 25 mg PO DAILY calcitriol 0.25 mcg capsule 0.5 mcg PO MOWEFR allopurinol 300 mg tablet 150 mg PO DAILY Daily Fiber (psyllium-aspart) 3 gram Powder In Packet 1 packet PO BID Qty: 0 0RF potassium chloride 20 mEq tablet extended release 20 meq PO DAILY Qty: 1 0RF doxepin 10 mg capsule 10 mg PO DAILY menthol-zinc oxide [Calmoseptine] 0.44-20.6 % ointment 1 applic topical BID nystatin [Nystop] 100,000 unit/gram powder 1 applic topical BID sennosides-docusate sodium [2-in-1 Laxative] 8.6-50 mg tablet 1 tab-cap PO BID furosemide [Lasix] 40 mg tablet 40 mg PO DAILY levetiracetam [Keppra] 100 mg/mL solution 500 mg PO BID isosorbide mononitrate 30 mg tablet extended release 24 hr 30 mg PO DAILY Qty: 90 4RF Referrals / Follow Up: Rios Downey DO [Primary Care Provider] - Disposition Disposition (needs filled in before D/C Order can be placed): Acute Care [facility] [place]
== END 2023-08-18 11:00 | disposition short-term general hospital (02) | DRG 70 ==
PROVIDERS: Admitting Provider Family Medicine Geriatric Medicine; Visit Provider Family Medicine Geriatric Medicine
DX: G93.40 Encephalopathy, unspecified (principal); J69.0 Pneumonitis due to inhalation of food and vomit; J96.10 Chronic respiratory failure, unspecified whether with hypoxia or hypercapnia; I13.0 Hypertensive heart and chronic kidney disease with heart failure and stage 1 through stage 4 chronic kidney disease, or unspecified chronic kidney disease; I50.42 Chronic combined systolic (congestive) and diastolic (congestive) heart failure; R47.01 Aphasia; N18.4 Chronic kidney disease, stage 4 (severe); E11.22 Type 2 diabetes mellitus with diabetic chronic kidney disease; B35.4 Tinea corporis; I48.0 Paroxysmal atrial fibrillation; E21.3 Hyperparathyroidism, unspecified; G40.909 Epilepsy, unspecified, not intractable, without status epilepticus; J44.9 Chronic obstructive pulmonary disease, unspecified; F32.A Depression, unspecified; E55.9 Vitamin D deficiency, unspecified; E78.5 Hyperlipidemia, unspecified; K21.9 Gastro-esophageal reflux disease without esophagitis; I25.10 Atherosclerotic heart disease of native coronary artery without angina pectoris; G47.33 Obstructive sleep apnea (adult) (pediatric); E87.6 Hypokalemia; F41.9 Anxiety disorder, unspecified; M10.9 Gout, unspecified; Z86.73 Personal history of transient ischemic attack (TIA), and cerebral infarction without residual deficits; Z87.891 Personal history of nicotine dependence; Z79.01 Long term (current) use of anticoagulants; R47.1 Dysarthria and anarthria; Z79.82 Long term (current) use of aspirin; Z79.899 Other long term (current) drug therapy; Z23 Encounter for immunization; Z66 Do not resuscitate
CPT/HCPCS: 0134A; 36415; 70450; 71046; 74230; 80048; 80053; 80177; 81001; 82274; 82306; 82962; 83880; 85014; 85018; 85025; 87086; 87811; 91313; 92507; 92523; 92526; 92610; 92611; 93005; 94002; 94003; 97110; 97112; 97116; 97129; 97162; 97166; 97530; 97535; 97802; A4216

== ENCOUNTER → 2023-07-06 | Outpatient (CLI) | payer MEDICARE, OTHER, SELFPAY ==
--- NOTE | 2023-07-06 10:06 | CT_ITS ---
STUDY: CT BRAIN WITHOUT CONTRAST REASON FOR EXAM: Male, 83 years old. CAME IN STROKE ALERT YESTERDAY RADIATION DOSAGE (If Supplied By Facility): CTDIvol = ( 44.99 ) mGy, DLP = ( 812.98 ) mGycm TECHNIQUE: Transaxial CT imaging of the brain was performed without administration of intravenous contrast material. Individualized dose optimization techniques were used for this CT. COMPARISON: Comparison is made with prior study dated June 29, 2023. FINDINGS: Normal soft tissue structures. Normal calvarium. There is mild cerebral atrophy with widening of the extra-axial spaces and ventricular dilatation. There are areas of decreased attenuation within the white matter tracts of the supratentorial brain, consistent with microvascular disease changes. There are small punctate calcifications of the basal ganglia which are seen in the aging brain as a normal variant. Normal brainstem. There is mild cerebellar atrophy. There is no intracranial hemorrhage. There are no findings of an acute ischemic infarction. Atherosclerotic calcification of the vertebral arteries and cavernous portions of the internal carotid arteries bilaterally. Normal visualized paranasal sinuses. CT/Brain/Head without Contrast IMPRESSION: Chronic involutional changes of the brain. Electronically Signed: Mahendra Canada MD at 11:11 EDT ,
== END | disposition home or self-care (01) ==
LOC: CT 10:05
PROVIDERS: Referring Provider Family Medicine Geriatric Medicine; Visit Provider Family Medicine Geriatric Medicine
DX: G31.9 Degenerative disease of nervous system, unspecified (principal)
CPT/HCPCS: 70450

== ENCOUNTER → 2023-07-22 | Outpatient (CLI) | payer MEDICARE, OTHER, SELFPAY ==
--- NOTE | 2023-07-22 14:09 | MRI_ITS ---
STUDY: MRI BRAIN WITHOUT CONTRAST REASON FOR EXAM: Male, 83 years old. ENCEPHALOPATHY TECHNIQUE: Multiplanar multisequence imaging of the brain was performed without the administration of intravenous contrast. COMPARISON: Brain MRI 06/30/2023, noncontrast head CT 07/06/2023 FINDINGS: The ventricles, cisterns, and sulci are prominent consistent with age-related volume loss. There is no restricted diffusion to suggest acute ischemia or infarction. No succeptibility artifict to suggest intracranial hemorrhage or mineralization. Major intracranial signal voids are preserved. There is high T2/FLAIR signal seen in the periventricular deep white matter. There is no midline shift, mass effect, or extra axial fluid collections are seen. No CP angle or IAC mass is seen. The orbits are unremarkable. The sella turcica and craniovertebral junction are within normal limits. The visualized paranasal sinuses are clear. MRI/Brain without Contrast IMPRESSION: Stable chronic volume loss and microvascular ischemic changes. No intracranial hemorrhage, acute infarct, or space occupying lesion seen on this noncontrast MRI of the brain. Electronically Signed: Vincent Underwood MD at 21:15 EDT ,
== END | disposition home or self-care (01) ==
PROVIDERS: Referring Provider Family Medicine Geriatric Medicine; Visit Provider Family Medicine Geriatric Medicine
DX: G93.40 Encephalopathy, unspecified (principal)
CPT/HCPCS: 70551

== ENCOUNTER → 2023-07-23 | Outpatient (CLI) | payer MEDICARE, OTHER, SELFPAY ==
--- NOTE | 2023-07-23 22:40 | CT_ITS ---
INDICATION: FALL EXAMINATION: CT Head or Brain W/O Contrast Injection TECHNIQUE: Multiple axial images were obtained of the head without intravenous contrast. A radiation dose optimization technique was used for this scan. IV Contrast dosage and agent: None. COMPARISON: Head CT from 07/06/2023 FINDINGS: BRAIN PARENCHYMA: No intra- or extra-axial hemorrhage. No evidence of acute major territorial infarct. No intracranial mass or mass effect. Deep cerebral white matter lucencies are present. Chronic cerebral involutional changes. Benign bilateral basal ganglia calcifications again noted. CSF SPACES: Prominent cerebral sulci and extraaxial spaces secondary to involutional changes. No hydrocephalus. Basal cisterns are patent. Intracranial atherosclerotic calcifications. CALVARIUM, SKULL BASE, PARANASAL SINUSES AND MASTOID AIR CELLS: Calvarium is intact. No acute findings within paranasal sinuses. Mastoid air cells are well-pneumatized. ORBITS: Postop cataract surgery bilaterally. CT/Brain/Head without Contrast IMPRESSION: Chronic involutional and white matter changes. No evidence of acute intracranial abnormality. Electronically Signed: Woody Nicole MD at 0:14 EDT ,
== END | disposition home or self-care (01) ==
PROVIDERS: Visit Provider Family Medicine Geriatric Medicine
DX: T14.90XA Injury, unspecified, initial encounter (principal); W19.XXXA Unspecified fall, initial encounter
CPT/HCPCS: 70450

== ENCOUNTER → 2023-08-06 | Outpatient (CLI) | payer MEDICARE, OTHER, SELFPAY ==
--- NOTE | 2023-08-06 08:23 | CT_ITS ---
INDICATION: FALL HITTING BACK OF HEAD EXAMINATION: CT BRAIN - CT Head or Brain W/O Contrast Injection TECHNIQUE: Multiple axial images were obtained of the head without intravenous contrast. A radiation dose optimization technique was used for this scan. IV Contrast dosage and agent: None. RADIATION DOSAGE (If Supplied By Facility): CTDIvol = ( 44.99 ) mGy, DLP = ( 812.98 ) mGycm COMPARISON: FINDINGS: BRAIN PARENCHYMA: Moderate cortical and central atrophy. Dystrophic calcifications within the medial lentiform nuclei bilaterally. Moderate chronic microvascular ischemic change periventricular white matter. No intra- or extra-axial hemorrhage. No evidence of acute infarct. No intracranial mass or mass effect. There is preservation of the stokes/white matter interface moderate cerebellar atrophy. CSF SPACES: Appropriate for age. No hydrocephalus. Basal cisterns are patent. CALVARIUM, SKULL BASE, PARANASAL SINUSES AND MASTOID AIR CELLS: Clear. No discrete lytic or blastic abnormalities. ORBITS: Both globes, extraocular muscles, optic nerves and retrobulbar fat appear unremarkable. ASPECTS Score for Acute Strokes: 10 CT/Brain/Head without Contrast IMPRESSION: Moderate cortical, central and cerebellar atrophy. Dystrophic calcifications basal ganglia bilaterally. Moderate chronic microvascular ischemic change. Electronically Signed: Woody Tavares MD at 9:22 EDT ,
== END | disposition home or self-care (01) ==
PROVIDERS: Referring Provider Family Medicine Geriatric Medicine; Visit Provider Family Medicine Geriatric Medicine
DX: G31.9 Degenerative disease of nervous system, unspecified (principal); W19.XXXA Unspecified fall, initial encounter
CPT/HCPCS: 70450

== ENCOUNTER 2023-08-18 11:12 | Inpatient (IN) | payer MEDICARE, OTHER, SELFPAY ==
[2023-08-18] VITALS (15 sets, daily range): BP systolic 71–154; BP diastolic 47–110; PULSE 60–83; RESP 13–21; TEMP 36.2–36.7; O2SAT 95–100; BMI 40.0; BMI 45.4
--- NOTE | 2023-08-18 11:00 | CT_ITS ---
STUDY: CT HEAD STROKE PROTOCOL W/O CONTRAST INJECTION REASON FOR EXAM: Male, 83 years old. ENCEPHALOPATHY RADIATION DOSAGE (If Supplied By Facility): CTDIvol = ( 44.99 ) mGy, DLP = ( 866.41 ) mGycm TECHNIQUE: Transaxial CT imaging of the brain was performed without administration of intravenous contrast material. Individualized dose optimization techniques were used for this CT. COMPARISON: Comparison is made with prior study dated August 06, 2023. FINDINGS: Normal soft tissue structures. Normal calvarium. There is moderate cerebral atrophy with widening of the extra-axial spaces and ventricular dilatation. There are areas of decreased attenuation within the white matter tracts of the supratentorial brain, consistent with microvascular disease changes. There are small punctate calcifications of the basal ganglia which are seen in the aging brain as a normal variant. Normal brainstem. There is mild cerebellar atrophy. There is no intracranial hemorrhage. There are no findings of an acute ischemic infarction. Atherosclerotic calcification of the vertebral arteries and cavernous portions of the internal carotid arteries bilaterally. Normal visualized paranasal sinuses. ASPECT score: 10 CT/STROKE Brain/Head without Cont IMPRESSION: Chronic involutional changes of the brain. N.B. : The above Results were Read Back by Mahendra Canada MD to Dr Marquise MD, and understanding confirmed on 08/18/2023 11:28:31 (ET). Electronically Signed: Mahendra Canada MD at 11:29 EDT ,
--- NOTE | 2023-08-18 11:15 | CT_ITS ---
STUDY: CTA HEAD AND NECK WITH CONTRAST REASON FOR EXAM: Male, 83 years old. Neuro deficit, acute, stroke suspected RADIATION DOSAGE (If Supplied By Facility): CTDIvol = ( 25.07 ) mGy, DLP = ( 740.81 ) mGycm TECHNIQUE: CT angiography was performed with a multi-detector CT scanner. Data acquisition was obtained from the skull base through the vertex following intravenous administration of IV 100mL [id number]-[id number]. MIP images were reconstructed from the axial data set. Post-processing of the angiographic images was performed, with multiplanar reformation and 3D reconstruction. Individualized dose optimization techniques were used for this CT. COMPARISON: No relevant priors. FINDINGS: Normal bilateral petrous carotid arteries. There is calcified plaque formation of the right cavernous carotid artery, without a cross-sectional luminal stenosis. There is calcified plaque formation of the left cavernous carotid artery, without a cross-sectional luminal stenosis. Normal right A1 segments of the anterior cerebral artery. Normal left A1 segments of the anterior cerebral artery. Normal intact anterior communicating artery (ACOM). Normal bilateral A2 segments of the anterior cerebral arteries. Normal right M1 and M2 segments of the middle cerebral arteries, with a normal M1 bifurcation. Normal left M1 and M2 segments of the middle cerebral arteries, with a normal M1 bifurcation. Normal right posterior communicating artery (PCOM). Normal left posterior communicating artery (PCOM). Normal bilateral vertebral arteries. Normal basilar artery with a normal basilar bifurcation. The visualized bilateral superior cerebellar (SCA) arteries are normal. Normal bilateral P1, P2 and visualized P3 segments of the posterior cerebral arteries. There is no demonstrated aneurysm of the [place]. There is no demonstrated abnormality of the visualized brain. AORTIC ARCH: There is atherosclerotic calcific plaque formation of the aortic arch and great vessels arising from the aortic arch, without a hemodynamically significant stenosis. There is a normal origin of the brachiocephalic, left common carotid, and left subclavian arteries. Atherosclerotic calcific plaque seen at the origin of the right brachiocephalic artery as well as the left common carotid artery and left subclavian artery. Prior CABG. RIGHT CAROTID ARTERIES: Normal right common carotid artery (CCA). Normal right common carotid bulb. There is mild atherosclerotic plaque formation of the origin of the right internal carotid artery with less than 50% cross sectional diameter stenosis. Normal visualized cervical portion of the right internal carotid artery. Normal origin of the right external carotid artery (ECA). LEFT CAROTID ARTERIES: Normal left common carotid artery (CCA). Normal left common carotid bulb. There is extensive atherosclerotic plaque formation of the origin of the left internal carotid artery with an estimated stenosis of greater than 70%. Normal visualized cervical portion of the left internal carotid artery. Normal origin of the left external carotid artery (ECA). VERTEBRAL ARTERIES: Normal bilateral vertebral arteries. 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 Less than 50% stenosis at the origin of the right internal carotid artery. N.B. : The above Results were Read Back by Mahendra Canada MD to Dr Cammie DO, and understanding confirmed on 08/18/2023 11:39:12 (ET). Electronically Signed: Mahendra Canada MD at 11:38 EDT ,
--- NOTE | 2023-08-18 11:15 | EKG12_ITS ---
Test Reason : POSS STROKE Blood Pressure : / mmHG Vent. Rate : 071 BPM Atrial Rate : 000 BPM P-R Int : 000 ms QRS Dur : 162 ms QT Int : 480 ms P-R-T Axes : 000 -34 129 degrees QTc Int : 521 ms Atrial fibrillation with premature ventricular or aberrantly conducted complexes Left axis deviation Left bundle branch block Abnormal ECG Confirmed by BHAVNA BAIG, GALE ([id number]), web editor ES SIMON ([id number]) on 08/23/2023 11:26:03 AM Referred By: Confirmed By:REJI HUGGINS MD
--- NOTE | 2023-08-18 11:16 | EDS_ITS ---
HPI History of Present Illness Chief Complaint: Stroke Alert [facility] Medical History Acute exacerbation of CHF (congestive heart failure) Acute on chronic diastolic (congestive) heart failure Acute respiratory failure with hypoxia Anemia Atherosclerosis of coronary artery bypass graft without angina pectoris Atherosclerosis of coronary artery of [place] heart without angina pectoris Atrial fibrillation with rapid ventricular response (07/11/16) Cholecystitis Chronic combined systolic and diastolic CHF (congestive heart failure) Chronic renal failure, stage 3 (moderate) Chronic respiratory failure with hypoxia COPD (chronic obstructive pulmonary disease) Essential (primary) hypertension Hyperlipemia Left bundle branch block Localized edema Lymphedema Morbid obesity with BMI of 45.0-49.9, adult Non-rheumatic aortic stenosis Obstructive sleep apnea Ocular migraine Paroxysmal atrial fibrillation Restrictive airway disease Right lower lobe pneumonia Sepsis TIA (transient ischemic attack) Type 2 diabetes mellitus without complications Venous insufficiency of both lower extremities Home Medications aspirin 81 mg tablet,delayed release 81 mg PO DAILY HEART HEALTH 07/11/16 [History Last Taken 07/03/23] atorvastatin 40 mg tablet 40 mg PO QHS CHOLSTEROL 07/11/16 [History Last Taken 08/17/23] multivitamin 1 ea PO DAILY HEALTH MAINTENANCE 07/11/16 [History Last Taken 0 08/18/23] insulin regular human 100 unit/mL injection solution 25 unit subcut BID DIABETES 07/24/16 [History Last Taken 07/02/23] cholecalciferol (vitamin D3) 25 mcg (1,000 unit) tablet 25 mcg PO DAILY SUPPLEMENT 10/26/16 [History Last Taken 08/18/23] sertraline 25 mg tablet 25 mg PO DAILY DEPRESSION 01/10/18 [History Last Taken 08/18/23] insulin NPH isoph U-100 human 100 unit/mL subcutaneous suspension 25 unit subcut BID DIABETES 03/08/18 [History Last Taken 07/03/23] famotidine 20 mg tablet 20 mg PO DAILY GERD 11/13/19 [History Last Taken 08/18/23] olanzapine 2.5 mg tablet 2.5 mg PO QHS DEPRESSION 11/13/19 [History Last Taken 08/17/23] allopurinol 300 mg tablet 150 mg PO DAILY GOUT 12/07/21 [History Last Taken 08/18/23] apixaban 2.5 mg tablet (Eliquis) 2.5 mg PO BID BLOOD THINNER 10/07/22 [History Last Taken 07/03/23] calcitriol 0.25 mcg capsule 0.5 mcg PO MOWEFR SUPPLEMENT 10/07/22 [History Last Taken 08/17/23] isosorbide mononitrate 30 mg tablet,extended release 24 hr 30 mg PO DAILY HEART #90 tabs 02/01/23 [Rx Last Taken 08/18/23] potassium chloride 20 mEq tablet,extended release 20 meq PO DAILY potassium #1 TAB 07/03/23 [Rx Last Taken Unknown] psyllium husk (aspartame) 3 gram oral powder packet (Daily Fiber (psyllium- aspartame)) 1 packet PO BID constipation #0 ea 07/03/23 [Rx Last Taken 07/03/23] doxepin 10 mg capsule 10 mg PO DAILY 08/18/23 [History Last Taken 08/17/23] furosemide 40 mg tablet (Lasix) 40 mg PO DAILY water pill 08/18/23 [History Last Taken 08/18/23] levetiracetam 100 mg/mL oral solution (Keppra) 500 mg PO BID 08/18/23 [History Last Taken 08/18/23] menthol 0.44 %-zinc oxide 20.6 % topical ointment (Calmoseptine) 1 applic topical BID 08/18/23 [History Last Taken 08/18/23] nystatin 100,000 unit/gram topical powder (Nystop) 1 applic topical BID 08/18/23 [History Last Taken 08/18/23] sennosides 8.6 mg-docusate sodium 50 mg tablet (2-in-1 Laxative) 1 tab-cap PO BID 08/18/23 [History Last Taken 08/18/23] Allergy/AdvReac Type Severity Reaction Status Date / Time Penicillins [PCN] Allergy Swelling Verified 08/18/23 11:43 Family History Father Myocardial infarction Mother CVA (cerebral vascular accident) Brother CAD (coronary artery disease) Diabetes Surgical History H/O aortic valve replacement (02/24/16) H/O coronary artery bypass surgery (02/24/16) Hx of cholecystectomy (01/13/17) Social History (Updated 07/03/23 @ 20:[address] Jeremy Magallanes MD) household members: family and other details: Granddaughter. Smoking Status: Unknown if ever smoked how long ago did patient quit smokin + years alcohol intake: never substance use type: does not use caffeine: Yes Type: carbonated beverages and tea EXAM Physical Exam Const Vital Signs: 08/18/23 11:23 08/18/23 11:15 08/18/23 11:15 Temperature 97.8 F 97.1 F L Temperature Source Temporal Temporal Pulse Rate 75 74 Respiratory Rate 14 14 Blood Pressure 152/71 H 133/65 H Blood Pressure Mean 98 87 Pulse Ox 99 98 Oxygen Delivery Method Nasal Cannula Nasal Cannula Nasal Cannula Oxygen Flow Rate (L/min) 4 4 4 08/18/23 11:30 08/18/23 12:43 08/18/23 12:57 Temperature Temperature Source Pulse Rate 66 74 68 Respiratory Rate 13 21 H 15 Blood Pressure 152/71 H 122/75 H 122/75 H Blood Pressure Mean 98 90 90 Pulse Ox 99 98 95 Oxygen Delivery Method Nasal Cannula Nasal Cannula Nasal Cannula Oxygen Flow Rate (L/min) 4 4 4 MDM MDM MDM Narrative Medical decision making narrative: HISTORY OF PRESENT ILLNESS: 83-year-old male here with concern for left-sided facial droop. Patient baseline is alert and oriented to self only does not provide reliable history. [facility] from [facility] patient was last normal at 930 he is undergoing speech therapy and was noted to have a left-sided facial droop. Last known well 9:30 AM on 08/18/2023. States his last dose of Eliquis was this morning. REVIEW OF SYSTEMS: Pertinent positives: Left-sided facial droop Pertinent negatives: None endorsed secondary to change in mental status PHYSICAL EXAM: Nursing triage notes reviewed, Vital signs reviewed Constitutional: please see mdm HENT: MMM Eyes: Pupils equal round and reactive to light, Extraocular muscles intact Neck: No stridor, no JVD, full neck ROM Lungs: Clear to auscultation, No wheezing or rales. No increased work of breathing, no conversational dyspnea, no accessory muscle use, no nasal flaring. No respiratory distress noted Heart: Regular rate and rhythm, No murmurs, No rubs and No gallops, 2+ distal pulses (radial, femoral, posterior tibial) in all extremities Abdomen: Soft, there is no tenderness, rigidity, rebound or guarding, no obvious peritoneal signs, no palpable pulsatile abdominal masses, no auscultated abdominal bruit : No CVAT Extremities: No edema Neuro: Patient was somnolent related to minor stimuli, is oriented to person only, has maybe a slight left-sided facial droop, dysarthria noted, no obvious extremity deficits or sensory deficits noted Skin: No rash or lesions noted MEDICAL DECISION MAKING: Chief Complaint: Left-sided facial droop, code stroke External records reviewed: Reviewed nephrology note from July 2023 which showed patient had recent hospitalization for TIA versus acute encephalopathy. MRI at that time showed no acute stroke, CT scan of the brain showed no acute process. Nephrology's been consulted secondary to CKD 4. Factors affecting care: Atrial fibrillation on Eliquis, CHF, anemia, CABG x4, CKD stage IV, hypertension, hyperlipidemia, type 2 diabetes Social determinants of health: Poor health literacy, baseline altered mental status History obtained from others: The patient's nurse Consults: Stroke neurology, internal medicine MDM Narrative: Patient was initially hemodynamically stable, afebrile and nontoxic-appearing. His blood sugar was acceptable at 147. Stroke protocol was initiated taken immediately to CT scanner. Given the patient's medication history of Eliquis and last dose this morning is not a TNK candidate however you are still within the window for thrombectomy and so I decided it was worth the risk of furthering the patient CKD to obtain a contrasted image to rule out large vessel occlusion given new onset left-sided facial drooping. Patient underwent a CT, CTA of the head and neck. Using 1 L normal saline to decrease risk of contrast-induced nephropathy. I considered the following differential diagnosis: CVA, TIA, seizure, ICH ALL IMAGES (IF OBTAINED) HAVE BEEN PERSONALLY REVIEWED AND INTERPRETED BY MYSELF. EKG with rate controlled atrial fibrillation left axis deviation, prolonged QT, left bundle branch block, no obvious STEMI CBC without significant leukocytosis, there is stable anemia, no thrombocytopenia PT, INR, PTT without evidence of significant coagulopathy BMP without significant electrolyte abnormalities, there is no anion gap, her CKD noted is similar to baseline Troponin is negative, no evidence of myocardial ischemia CTA without LVO Consulted stroke neurology who had recommended admission for further evaluation and receptor modification. The patient and/or family, caregivers express understanding. The patient and/or family, caregivers agrees with the plan. Shared decision making: I will have a discussion with the patient and or visitors regarding risk/benefits of further testing or admission. They will be made aware of of the risk/benefits inherent in this decision they will be given the opportunity to voice understanding. Total critical care time today provided was at least 0 minutes. This excludes separately billable procedures. Critical care time (if documented) is secondary to the patient having high probability of clinically significant/life threatening deterioration in the patient's condition which required my urgent intervention. Impression: 1. Left-sided facial droop 2. CKD 3. Anemia 4. Carotid artery stenosis Dispo: Admit for further risk factor modification potential MRI Lab Data Labs: Laboratory Results - last 24 hr 08/18/23 11:35 WBC 9.0 RBC 3.47 L Hgb 10.8 L Hct 34.3 L MCV 98.8 H MCH 31.1 MCHC 31.5 L RDW Std Deviation 51.6 H RDW Coeff of Yeny 14.3 Plt Count 153 MPV 11.3 Immature Gran % (Auto) 0.400 Neut % (Auto) 73.4 H Lymph % (Auto) 17.6 L Dukes % (Auto) 6.4 Eos % (Auto) 1.8 Baso % (Auto) 0.4 Absolute Neuts (auto) 6.6 Absolute Lymphs (auto) 1.58 Nucleated RBC % 0 PT 17.1 H INR 1.4 APTT 38.4 H Sodium 139 Potassium 4.5 Chloride 107 Carbon Dioxide 29.0 Anion Gap 3 L BUN 44 H Creatinine 2.23 H Estim Creat Clear Calc 22.22 Est GFR (MDRD) Af Amer 36 L Est GFR (MDRD) Non-Af 30 L BUN/Creatinine Ratio 19.7 Glucose 151 H Calcium 9.6 Troponin I High Sens 78 Radiography Diagnostic Testing: Clinical Impression(s) from Imaging Studies Head/Neck CTA 08/18/23 11:15 IMPRESSION: Greater than 70% stenosis at the origin of the left internal carotid artery. Less than 50% stenosis at the origin of the right internal carotid artery. N.B. : The above Results were Read Back by Mahendra Canada MD to Dr Cammie DO, and understanding confirmed on 08/18/2023 11:39:12 (ET). Electronically Signed: Mahendra Canada MD at 11:38 EDT , Chest X-Ray 08/18/23 12:25 IMPRESSION: Moderate cardiomegaly. Findings suggestive of a mild degree of increased linear markings at the left lung base with blunting of the left costophrenic angle. Electronically Signed: Mahendra Canada MD at 12:55 EDT , Discharge Plan Triage Chief Complaint: Stroke Alert ED Provider: Farhan Bonds Dx/Rx/DC Orders Prescriptions: No Action famotidine 20 mg tablet 20 mg PO DAILY olanzapine 2.5 mg tablet 2.5 mg PO QHS Eliquis 2.5 mg tablet 2.5 mg PO BID atorvastatin 40 MG tablet 40 mg PO QHS aspirin 81 MG tablet,delayed release (DR/EC) 81 mg PO DAILY Patient Comments: multivitamin 1 EACH tablet 1 ea PO DAILY insulin regular human 100 UNIT/ML solution 25 unit SC BID Patient Comments: afternoon and night insulin NPH isoph U-100 human 100 unit/mL suspension 25 unit SC BID cholecalciferol (vitamin D3) 1,000 UNIT tablet 25 mcg PO DAILY sertraline 25 MG tablet 25 mg PO DAILY calcitriol 0.25 mcg capsule 0.5 mcg PO MOWEFR allopurinol 300 mg tablet 150 mg PO DAILY levetiracetam 500 mg Tablet 500 mg PO BID Qty: 0 0RF Daily Fiber (psyllium-aspart) 3 gram Powder In Packet 1 packet PO BID Qty: 0 0RF potassium chloride 20 mEq tablet extended release 20 meq PO DAILY Qty: 1 0RF doxepin 10 mg capsule 10 mg PO DAILY menthol-zinc oxide [Calmoseptine] 0.44-20.6 % ointment 1 applic topical BID nystatin [Nystop] 100,000 unit/gram powder 1 applic topical BID sennosides-docusate sodium [2-in-1 Laxative] 8.6-50 mg tablet 1 tab-cap PO BID furosemide [Lasix] 40 mg tablet 40 mg PO DAILY isosorbide mononitrate 30 mg tablet extended release 24 hr 30 mg PO DAILY Qty: 90 4RF Primary Care Provider: Rios Downey Referrals: Rios Downey DO [Primary Care Provider] -
[2023-08-18 11:51] LABS: Absolute Lymphocyte Count 1.58 X10^3/uL (0.83-4.51); Absolute Neutrophil Count 6.6 X10^3/uL (2.0-7.7); Basophil# 0.04 X10^3/uL; Basophil% 0.4 % (0-1); Eosinophil# 0.16 X10^3/uL; Eosinophils% 1.8 % (0-5); Hematocrit 34.3 % (40-54); Hemoglobin 10.8 g/dL (13.0-16.5); Lymphocyte # 1.58 X10^3/ul (0.83-4.51); Lymphocyte % 17.6 % (19-41); Mean Corp Hgb Conc 31.5 g/dL (32-36); Mean Corpuscular Hgb 31.1 pg (27.0-32.0); Mean Corpuscular Volume 98.8 fL (80-94); Mean Platelet Vol. 11.3 fl (6.2-12.0); Monocyte# 0.57 X10^3/uL; Monocyte% 6.4 % (0-10); NRBC Flagged by Analyzer 0 % (0-5); Neutrophil # 6.58 X10^3/uL (2.7-7.7); Neutrophil % 73.4 % (47-70); Platelet Count 153 K/mm3 (150-450); RBC Distribution Width CV 14.3 % (11.6-14.6); RBC Distribution Width SD 51.6 fl (35.1-43.9); Red Blood Count 3.47 M/mm3 (4.6-6.2)
--- NOTE | 2023-08-18 11:58 | ED.RN ---
THIS PRECISION INSPECTOR RN THAT RESPONDED TO STROKE TEAM. STROKE TEAM CALLED AT 1058. DUE TO SEQUENCE OF EVENTS THIS RN UNABLE TO PUT PT IN COMPUTER ED PT UNTIL [address] DR[address] SHAY EVALUATED PT IN CT. THIS RN DID FULL NIH WITH PATIENT WHEN RETURNED TO ROOM AT 1130 [facility].
[2023-08-18 12:05] LABS: Anion Gap 3 (5-15); BUN 44 mg/dL (7-18); BUN/Creat Ratio 19.7 RATIO (10-20); Calcium,Total 9.6 mg/dL (8.5-10.1); Chloride 107 mmol/L (98-107); Creatinine, Serum 2.23 mg/dL (0.70-1.30); EST Glomerular Filtration Rate 30 mL/min (>60); Est Glom Filt Rate - Afr Amer 36 mL/min (>60); Estimated Creatinine Clearance 22.22 ml/min; Glucose 151 mg/dL (74-106); Potassium 4.5 mmol/L (3.5-5.1); Sodium Level 139 mmol/L (136-145); Troponin-I HS 78 pg/mL (3.0-78.0)
[2023-08-18 12:10] LABS: International Normalized Ratio 1.4; Prothrombin Time (Protime)PT. 17.1 SECONDS (11.7-14.9)
[2023-08-18] MEDS: 0.9% Normal Saline (1000mL) 1,000 ML 100 ML IV (12:10)
[2023-08-18 12:11] LABS: Partial Thromboplast Time 38.4 Seconds (24.1-36.2)
--- NOTE | 2023-08-18 12:25 | RAD_ITS ---
STUDY: X-RAY CHEST REASON FOR EXAM: Male, 83 years old. Neuro deficit, acute, stroke suspected TECHNIQUE: Single AP portable view of the chest. COMPARISON: Comparison is made with prior study July 19, 2023. FINDINGS: EKG electrodes are seen. Findings suggestive of increased linear markings at the left lung base with blunting of the left costophrenic angle. Sternal cerclage wires and vascular clips are present from a prior sternotomy and coronary artery bypass graft procedure (CABG). Moderate cardiomegaly. Normal mediastinum and baudilio. Normal visualized pulmonary arteries. There is atherosclerotic calcification of the aortic arch with tortuosity. There are diffuse degenerative changes of the visualized thoracic spine. There is degenerative osteoarthritis of the bilateral shoulders. There is no demonstrated abnormality of the visualized soft tissue structures of the upper abdomen. RAD/Chest 1 View IMPRESSION: Moderate cardiomegaly. Findings suggestive of a mild degree of increased linear markings at the left lung base with blunting of the left costophrenic angle. Electronically Signed: Mahendra Canada MD at 12:55 EDT ,
--- NOTE | 2023-08-18 14:35 | PCM.HP.STD ---
HPI - General General Date of Admission: 08/18/23 Date of Service: 08/18/23 Chief Complaint: Facial droop, confusion. 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), Former tobacco use, CAD s/p CABG x 4, Valvular Heart Disease s/p AVR, Diabetes mellitus type II, Anxiety and Depression, recent hospital discharge 07/03/23 following evaluation for initial concern of TIA with acute encephalopathy; however, work-up unremarkable for TIA and presentation suspected to a possible seizure increased on his dose of Keppra to 500 twice daily with transition to the TCU following who now represents to the [facility] ED on 08/18/23 with history of onset of left-sided facial droop unfortunately alert and oriented only to self but per TCU last normal 930 while he was undergoing speech therapy with then onset of left-sided facial droop with his last dose of Eliquis per report on AM of day of transition to the ED for evaluation prompting stroke alert. Patient is very similar to his recent presentation of note. Work-up in the ED included T97.1, heart rate 74, BP 133/65, respiratory rate 14, 98% on 4 L nasal cannula which appears to be his chronic level, CBC with WC 9.0, hemoglobin 10.8, MCV 98.8, platelet 153 without marked shift, coags with PT 17.1, INR 1.4, PTT 38.4, BMP with BUN/creatinine 44/2.23, glucose 151, troponin 78, chest x-ray with moderate cardiomegaly and findings suggestive of a mild degree of increased linear markings at the left lung base with blunting of the left costophrenic angle, CTA head and neck with greater than 70% stenosis at the origin of the left ICA, less than 50% stenosis at the origin of the right ICA, EKG rate controlled atrial fibrillation with no acute evidence of ischemia. In the ED patient administered maintenance IV fluids. [facility] Medical History Acute exacerbation of CHF (congestive heart failure) Acute on chronic diastolic (congestive) heart failure Acute respiratory failure with hypoxia Anemia Atherosclerosis of coronary artery bypass graft without angina pectoris Atherosclerosis of coronary artery of [place] heart without angina pectoris Atrial fibrillation with rapid ventricular response (07/11/16) BiPAP (biphasic positive airway pressure) dependence Cholecystitis Chronic combined systolic and diastolic CHF (congestive heart failure) Chronic renal failure, stage 3 (moderate) Chronic respiratory failure with hypoxia COPD (chronic obstructive pulmonary disease) Essential (primary) hypertension Former smoker Hyperlipemia Left bundle branch block Localized edema Lymphedema Morbid obesity with BMI of 45.0-49.9, adult Non-rheumatic aortic stenosis Obstructive sleep apnea Ocular migraine On home oxygen therapy Paroxysmal atrial fibrillation Restrictive airway disease Right lower lobe pneumonia Sepsis TIA (transient ischemic attack) Type 2 diabetes mellitus without complications Venous insufficiency of both lower extremities Home Medications aspirin 81 mg tablet,delayed release 81 mg PO DAILY HEART HEALTH 07/11/16 [History Last Taken 07/03/23] atorvastatin 40 mg tablet 40 mg PO QHS CHOLSTEROL 07/11/16 [History Last Taken 08/17/23] multivitamin 1 ea PO DAILY HEALTH MAINTENANCE 07/11/16 [History Last Taken 08/18/23] insulin regular human 100 unit/mL injection solution 25 unit subcut BID DIABETES 07/24/16 [History Last Taken 07/02/23] cholecalciferol (vitamin D3) 25 mcg (1,000 unit) tablet 25 mcg PO DAILY SUPPLEMENT 10/26/16 [History Last Taken 08/18/23] sertraline 25 mg tablet 25 mg PO DAILY DEPRESSION 01/10/18 [History Last Taken 08/18/23] insulin NPH isoph U-100 human 100 unit/mL subcutaneous suspension 25 unit subcut BID DIABETES 03/08/18 [History Last Taken 07/03/23] famotidine 20 mg tablet 20 mg PO DAILY GERD 11/13/19 [History Last Taken 08/18/23] olanzapine 2.5 mg tablet 2.5 mg PO QHS DEPRESSION 11/13/19 [History Last Taken 08/17/23] allopurinol 300 mg tablet 150 mg PO DAILY GOUT 12/07/21 [History Last Taken 08/18/23] apixaban 2.5 mg tablet (Eliquis) 2.5 mg PO BID BLOOD THINNER 10/07/22 [History Last Taken 07/03/23] calcitriol 0.25 mcg capsule 0.5 mcg PO MOWEFR SUPPLEMENT 10/07/22 [History Last Taken 08/17/23] isosorbide mononitrate 30 mg tablet,extended release 24 hr 30 mg PO DAILY HEART #90 tabs 02/01/23 [Rx Last Taken 08/18/23] potassium chloride 20 mEq tablet,extended release 20 meq PO DAILY potassium #1 TAB 07/03/23 [Rx Last Taken Unknown] psyllium husk (aspartame) 3 gram oral powder packet (Daily Fiber (psyllium-aspartame)) 1 packet PO BID constipation #0 ea 07/03/23 [Rx Last Taken 07/03/23] doxepin 10 mg capsule 10 mg PO DAILY 08/18/23 [History Last Taken 08/17/23] furosemide 40 mg tablet (Lasix) 40 mg PO DAILY water pill 08/18/23 [History Last Taken 08/18/23] levetiracetam 100 mg/mL oral solution (Keppra) 500 mg PO BID 08/18/23 [History Last Taken 08/18/23] menthol 0.44 %-zinc oxide 20.6 % topical ointment (Calmoseptine) 1 applic topical BID 08/18/23 [History Last Taken 08/18/23] nystatin 100,000 unit/gram topical powder (Nystop) 1 applic topical BID 08/18/23 [History Last Taken 08/18/23] sennosides 8.6 mg-docusate sodium 50 mg tablet (2-in-1 Laxative) 1 tab-cap PO BID 08/18/23 [History Last Taken 08/18/23] Allergy/AdvReac Type Severity Reaction Status Date / Time Penicillins [PCN] Allergy Swelling Verified 08/18/23 11:43 Family History Father Myocardial infarction Mother CVA (cerebral vascular accident) Brother CAD (coronary artery disease) Diabetes Surgical History H/O aortic valve replacement (02/24/16) H/O coronary artery bypass surgery (02/24/16) Hx of cholecystectomy (01/13/17) Social History household members: family and other details: Granddaughter. Smoking Status: Unknown if ever smoked how long ago did patient quit smokin + years alcohol intake: never substance use type: does not use caffeine: Yes Type: carbonated beverages and tea ROS Review of Systems ROS Unobtainable: due to encephalopathy Vital Signs Vital Signs Vital Signs: 08/18/23 11:23 08/18/23 11:15 08/18/23 11:15 Temperature 97.8 F 97.1 F L Temperature Source Temporal Temporal Pulse Rate 75 74 Respiratory Rate 14 14 Blood Pressure 152/71 H 133/65 H Blood Pressure Mean 98 87 Pulse Ox 99 98 Oxygen Delivery Method Nasal Cannula Nasal Cannula Nasal Cannula Oxygen Flow Rate (L/min) 4 4 4 08/18/23 11:30 08/18/23 12:43 08/18/23 12:57 Temperature Temperature Source Pulse Rate 66 74 68 Respiratory Rate 13 21 H 15 Blood Pressure 152/71 H 122/75 H 122/75 H Blood Pressure Mean 98 90 90 Pulse Ox 99 98 95 Oxygen Delivery Method Nasal Cannula Nasal Cannula Nasal Cannula Oxygen Flow Rate (L/min) 4 4 4 Weight Weight: 273 lb 2.444 oz Body Mass Index (BMI) 45.4 Physical Exam Narrative Physical Examination: General: Awakens to stimuli, intermittently alert, not answering orientation questions, will follow some commands but very difficult exam, seated upright in ED bed, no acute distress. Skin: Normal color, normal turgor, no icterus, no cyanosis except very staged ecchymoses especially to the extremities. HEENT: AT/NC, EOMI, PERRLA, dry MM, no carotid bruits or JVD noted; however, thickened neck makes evaluation difficult, unable to discern any marked left facial droop of note. Lungs: Markedly diminished, greater bases, no evidence of any respiratory distress, no rales, ronchi or wheezing. Heart: Irregular, rate controlled; no gallop, rub audible, + SM. Abdomen: Soft, morbidly obese, NTTP, distant BS, difficult to assess distention and HSM given habitus. Extremities: No cyanosis, no clubbing, peripheral edema present and from report likely chronic component. Neurological: Awakens to stimuli, intermittently alert, not answering orientation questions, will follow some commands but very difficult exam, seated upright in ED bed, no acute distress, cognitive function diminished baseline but currently below baseline intact; pupils equally reactive to light and accommodation, cranial nerves appear grossly normal but difficult exam, spontaneously moving all extremities, strength difficult to assess but appears severely globally decreased, unable to have patient perform finger-nose or [id number], equivocal Babinski, patient is definitely having interactive difficulties and aphasic of note. Psychiatric: Affect appears flat, no acute evidence of depressive or anxiety feelings. Results Lab / Micro Data 08/18/23 11:35 08/18/23 11:35 Labs: Laboratory Results - last 24 hr 08/18/23 11:35: WBC 9.0, RBC 3.47 L, Hgb 10.8 L, Hct 34.3 L, MCV 98.8 H, MCH 31.1, MCHC 31.5 L, RDW Std Deviation 51.6 H, RDW Coeff of Yeny 14.3, Plt Count 153, MPV 11.3, Immature Gran % (Auto) 0.400, Neut % (Auto) 73.4 H, Lymph % (Auto) 17.6 L, Gove % (Auto) 6.4, Eos % (Auto) 1.8, Baso % (Auto) 0.4, Absolute Neuts (auto) 6.6, Absolute Lymphs (auto) 1.58, Nucleated RBC % 0, PT 17.1 H, INR 1.4, APTT 38.4 H, Sodium 139, Potassium 4.5, Chloride 107, Carbon Dioxide 29.0, Anion Gap 3 L, BUN 44 H, Creatinine 2.23 H, Estim Creat Clear Calc 22.22, Est GFR (MDRD) Af Amer 36 L, Est GFR (MDRD) Non-Af 30 L, BUN/Creatinine Ratio 19.7, Glucose 151 H, Calcium 9.6, Troponin I High Sens 78 Radiology Impression Head/Neck CTA 08/18/23 11:15 IMPRESSION: Greater than 70% stenosis at the origin of the left internal carotid artery. Less than 50% stenosis at the origin of the right internal carotid artery. N.B. : The above Results were Read Back by Mahendra Canada MD to Dr Cammie DO, and understanding confirmed on 08/18/2023 11:39:12 (ET). Electronically Signed: Mahendra Canada MD at 11:38 EDT , Chest X-Ray 08/18/23 12:25 IMPRESSION: Moderate cardiomegaly. Findings suggestive of a mild degree of increased linear markings at the left lung base with blunting of the left costophrenic angle. Electronically Signed: Mahendra Canada MD at 12:55 EDT , Assessment & Plan Assessment/Plan (1) Confusion: PLAN: Plan The patient is an 83 y/o M w/ PMHx: CKD stage IV, HTN, HLD, Anxiety and Depression, Morbid Obesity, Seizure disorder, PAF, GERD, Combined Chronic CHF, AUTUMN on BIPAP, COPD with Chronic Hypoxic Respiratory Failure (4L NC), Former tobacco use, CAD s/p CABG x 4, Valvular Heart Disease s/p AVR, Diabetes mellitus type II,recent hospital discharge 07/03/23 following evaluation for initial concern of TIA with acute encephalopathy; however, work-up unremarkable for TIA and presentation suspected to a possible seizure increased on his dose of Keppra to 500 twice daily with transition to the TCU following who now represents to the [facility] ED on 08/18/23 with history of onset of left-sided facial droop unfortunately alert and oriented only to self but per TCU last normal 930 while he was undergoing speech therapy with then onset of left-sided facial droop with his last dose of Eliquis per report on AM of day of transition to the ED for evaluation prompting stroke alert. #1. Confusion, Aphasia, L sided facial droop concerning for possible CVA: Will admit to PCU, given similar presentation recently with negative MRI of the brain we will also obtain ABG and will request also ammonia level to be cautious we will pursue continued stroke work-up including MRI Brain, recent ECHO and carotid US from prior CVA evaluations thus will not repeat at this time, PT/OT/Speech/Nutrition evaluation per protocol. Will allow permissive HTN, given concern for oral intake will transition to UT ASA, holding oral regimen. Maintain on fall precautions. Mag, TSH, FLP, HgbA1c requested. Once work-up obtained low threshold to obtain Neurology consultation. Will transition keppra to IV. If MRI negative may need to consider repeat EEG and neurology consultation. #2. Seizure disorder: Suspected underlying seizure disorder with recent evaluation similar to his current presentation with eventual diagnosis of suspected seizures, will transition to IV Keppra with ongoing evaluation as noted #1. #3. Hypertension: We will maintain permissive hypertension given acute presentation with as needed IV agents per stroke protocol with readdition of oral agents once oral intake deemed safe also of note. #4. Hyperlipidemia: Holding oral statin, add back once appropriate. #5. CKD stage IV: Chronic Kidney Disease Stage: Admission BUN/Cr 44/2.3, baseline renal function 2.2-2.5 primarily more recently, repeat BMP in AM. #6. PAF: Will initiate heparin drip at next dose is due of Eliquis until oral intake safe, not on rate or rhythm agent. #7. Combined Chronic CHF: Currently appears compensated, will judiciously hydrate only if needed, currently holding all oral regimen, transitioning to as needed aspirin and heparin drip at next dose is due of Eliquis with hold on hypertensive medication for permissive hypertension given stroke presentation evaluation as noted, temporally holding oral statin with resumption once appropriate. #8. 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 #9. CAD s/p CABG x 4, currently holding all oral regimen, BS, temporally holding oral statin with resumption once appropriate. #10. Valvular Heart Disease: s/p AVR, 06/29/2023 echocardiogram with normal LV size, EF 40%, mild to moderate TVI, PASP 44 mmHg with a negative bubble contrast study and appropriate appearing bioprosthetic aortic valve. #11. Diabetes mellitus type II: Hold oral home regimen, currently n.p.o. status given unsafe oral intake concerns, in the interim maintain on every 6 hours accu checks w/ ISS, hemoglobin A1c requested per stroke protocol, nutrition consulted for evaluation also. #12. Anxiety and depression: We will temporally hold patient home sertraline regimen while awaiting speech therapy evaluation given concerns for unsafe oral intake. #13. Morbid Obesity: Weight loss and lifestyle changes encouraged. #14. Former tobacco use: Encourage continued tobacco cessation. #15. GERD: We will maintain on IV PPI given n.p.o. status as noted. #16. AUTUMN: BIPAP q HS. #17. DVT prophylaxis: Temporarily holding patient home Eliquis until oral intake safe, transition in the interim to heparin drip at next dose due. #18. She CODE status: Per most recent admission will continue prior requested DNR-CCA, no intubation status. Charges/Coding Visit Charges Inpatient E&M: 54768 Init Hosp L3
--- NOTE | 2023-08-18 15:44 | NURSING ---
125 WHITE LEFT SIDED FACIAL DROOP
[2023-08-18 16:06] LABS: Magnesium 1.9 mg/dL (1.6-2.6)
[2023-08-18 16:18] LABS: International Normalized Ratio 1.6; Prothrombin Time (Protime)PT. 18.9 SECONDS (11.7-14.9)
--- NOTE | 2023-08-18 17:57 | NURSING ---
Pt is very sleepy, very poor historian.
--- NOTE | 2023-08-18 19:01 | NURSING ---
Vital signs unable to be charted at appropriate time. See comment under 1112 vitals.
[2023-08-18 19:13] LABS: Bedside Glucose 127 mg/dL (74-106)
[2023-08-18] MEDS: Heparin Injection (Vial) 5,000 UNIT/ML VIAL 8000 UNIT IV (19:26)
[2023-08-18] MEDS: HEPARIN/D5w 25,000 UNITS 25,000 UNITS/250 ML IV.SOLN. 15 UNITS CONT INF (20:41)
[2023-08-18 20:55] LABS: Blood Gas Specimen Type VEN; O2 Delivery Device Cannula; SITE Not entered; VBG BASE EXCESS 1 mmol/L (-1.0-3.5); VBG Bicarbonate 26 mmol/L (22-26); VBG PO2 29 mmHg (25-40); VBG SO2 52 % (50-70); VBG TCO2 28 mmol/L (23-33); VBG pH 7.36 (7.32-7.42)
[2023-08-18] MEDS: Pantoprazole Sodium 40 MG in 0.9% Normal Saline (100mL MB+) 100 ML 330 MG IV (22:13)
[2023-08-18] MEDS: Menthol/Lanolin/Calamine/Znox 113 GM Tube 1 APPLIC TOPICAL (22:14)
[2023-08-18] MEDS: Miconazole Nitrate 43 GM Bottle 1 APPLIC TOPICAL (22:17)
[2023-08-18] MEDS: 0.9% Normal Saline (1000mL) 1,000 ML 50 ML IV (23:25)
[2023-08-18] MEDS: levETIRAcetam IV 500 MG in 0.9% Normal Saline (100mL Bag) 100 ML 400 MG IV (23:25)
[2023-08-19] VITALS (8 sets, daily range): BP systolic 122–148; BP diastolic 60–87; PULSE 68–79; RESP 16–18; TEMP 35.9–37.1; O2SAT 94–100; BMI 40.0
[2023-08-19 01:13] LABS: Bedside Glucose 112 mg/dL (74-106)
[2023-08-19 03:13] LABS: Absolute Lymphocyte Count 1.91 X10^3/uL (0.83-4.51); Absolute Neutrophil Count 5.7 X10^3/uL (2.0-7.7); Basophil# 0.04 X10^3/uL; Basophil% 0.5 % (0-1); Eosinophils% 2.4 % (0-5); Hematocrit 31.8 % (40-54); Hemoglobin 9.9 g/dL (13.0-16.5); Lymphocyte # 1.91 X10^3/ul (0.83-4.51); Lymphocyte % 22.6 % (19-41); Mean Corp Hgb Conc 31.1 g/dL (32-36); Mean Corpuscular Hgb 30.8 pg (27.0-32.0); Mean Corpuscular Volume 99.1 fL (80-94); Mean Platelet Vol. 10.9 fl (6.2-12.0); Monocyte# 0.56 X10^3/uL; Monocyte% 6.6 % (0-10); NRBC Flagged by Analyzer 0 % (0-5); Neutrophil # 5.73 X10^3/uL (2.7-7.7); Neutrophil % 67.7 % (47-70); Platelet Count 140 K/mm3 (150-450); RBC Distribution Width CV 14.2 % (11.6-14.6); RBC Distribution Width SD 51.3 fl (35.1-43.9); Red Blood Count 3.21 M/mm3 (4.6-6.2); White Blood Count 8.5 K/mm3 (4.4-11.0)
--- NOTE | 2023-08-19 03:23 | CPS ---
Pt refused bipap, kept taking it off
[2023-08-19 03:36] LABS: Partial Thromboplast Time > 200.0 Seconds (24.1-36.2)
[2023-08-19 04:02] LABS: ALB/GLOB Ratio 0.5 RATIO (0.9-2.4); AST(SGOT) 17 U/L (15-37); Alanine Aminotransfer ALT/SGPT 15 U/L (16-61); Albumin, Serum 2.4 g/dL (3.2-5.0); Alkaline Phosphatase 110 U/L (45-117); Anion Gap 3 (5-15); BUN 44 mg/dL (7-18); BUN/Creat Ratio 20.5 RATIO (10-20); Calcium,Total 8.7 mg/dL (8.5-10.1); Chloride 111 mmol/L (98-107); Creatinine, Serum 2.15 mg/dL (0.70-1.30); EST Glomerular Filtration Rate 31 mL/min (>60); Est Glom Filt Rate - Afr Amer 38 mL/min (>60); Estimated Creatinine Clearance 23.04 ml/min; Globulin 4.5 g/dL (2.2-4.2); Glucose 101 mg/dL (74-106); Potassium 4.1 mmol/L (3.5-5.1); Protein, Total 6.9 g/dL (6.4-8.2); Sodium Level 137 mmol/L (136-145)
[2023-08-19 06:59] LABS: Bedside Glucose 90 mg/dL (74-106)
--- NOTE | 2023-08-19 09:30 | MRI_ITS ---
EXAM: MR HEAD WITHOUT INTRAVENOUS CONTRAST CLINICAL INDICATION: CVA, left facial droop, confusion TECHNIQUE: Multiplanar and multisequence MR images of the brain were obtained without intravenous contrast. COMPARISON: CT brain 08/18/2023, MR Head dated 07/22/2023 FINDINGS: BRAIN AND EXTRA-AXIAL SPACES: Increased T2 signal intensity within the cerebral white matter suggestive of chronic microvascular change. Prominence of the cortical sulci and ventricles related to volume loss change. No intra- or extra-axial hemorrhage. No evidence of acute infarct. No intracranial mass or mass effect. There is preservation of the stokes/white matter interface. Posterior fossa structures are unremarkable. Basal cisterns are patent. SELLA: Normal. Normal sella turcica, pituitary gland, infundibular stalk, optic chiasm and hypothalamus. AUDITORY SYSTEM: Normal. The internal auditory canals are patent. BONES/JOINTS: Intact calvarium. SINUSES: Unremarkable as visualized. Clear. MASTOID AIR CELLS: Unremarkable as visualized. Clear. ORBITS: Unremarkable as visualized. Both globes, extraocular muscles, optic nerves and retrobulbar fat appear unremarkable. VASCULATURE: Unremarkable as visualized. Normal flow voids in the major intracranial circulation. MRI/Brain without Contrast IMPRESSION: 1. No acute intracranial abnormality. 2. Stable senescent changes. Electronically Signed: Jared Garcias MD at 11:18 EDT ,
--- NOTE | 2023-08-19 09:41 | PCM.PN.HOSP ---
Reason for Visit Reason for Visit: Diagnoses Disorientation, unspecified (08/18/23) Subjective Subjective Patient is an 83-year-old gentleman with multiple comorbidities including recent diagnosis of seizure disorder who was being managed at the transitional care unit found to have altered mental status stroke alert was called patient transferred to the ED and subsequently admitted to a monitored bed for further management. MRI obtained came back negative for acute CVA Objective Data Objective Data Vital Signs: Vital Signs Temp Pulse Resp BP Pulse Ox O2 Del Method O2 Flow Rate 97.1 F L 72 16 137/67 H 95 Nasal Cannula 4 08/19/23 08:00 08/19/23 08:00 08/19/23 08:00 08/19/23 08:00 08/19/23 08:00 08/19/23 08:22 08/19/23 08:22 Oxygen Flow Rate (L/min) 4 Oxygen Delivery Method Nasal Cannula Weight: 109.2 kg Body Mass Index (BMI) 40.0 Intake & Output: Intake and Output for Last 24 Hours 08/17/23 08/18/23 08/19/23 23:59 23:59 23:59 Intake Total 980.00 / 980.00 344.2 / 344.2 Output Total 800 / 800 Balance 980.00 / 580.00 -455.8 / -455.8 Lab / Micro Data 08/19/23 03:05 08/19/23 03:05 Labs: Laboratory Results - last 24 hr 08/18/23 11:35: WBC 9.0, RBC 3.47 L, Hgb 10.8 L, Hct 34.3 L, MCV 98.8 H, MCH 31.1, MCHC 31.5 L, RDW Std Deviation 51.6 H, RDW Coeff of Yeny 14.3, Plt Count 153, MPV 11.3, Immature Gran % (Auto) 0.400, Neut % (Auto) 73.4 H, Lymph % (Auto) 17.6 L, [place] % (Auto) 6.4, Eos % (Auto) 1.8, Baso % (Auto) 0.4, Absolute Neuts (auto) 6.6, Absolute Lymphs (auto) 1.58, Nucleated RBC % 0, PT 17.1 H, INR 1.4, APTT 38.4 H, Sodium 139, Potassium 4.5, Chloride 107, Carbon Dioxide 29.0, Anion Gap 3 L, BUN 44 H, Creatinine 2.23 H, Estim Creat Clear Calc 22.22, Est GFR (MDRD) Af Amer 36 L, Est GFR (MDRD) Non-Af 30 L, BUN/Creatinine Ratio 19.7, Glucose 151 H, Calcium 9.6, Troponin I High Sens 78 08/18/23 15:45: PT 18.9 H, INR 1.6, APTT 40.0 H, Magnesium 1.9, Ammonia 14.0 08/18/23 18:47: POC Glucose 127 H 08/19/23 00:55: POC Glucose 112 H 08/19/23 03:05: WBC 8.5, RBC 3.21 L, Hgb 9.9 L, Hct 31.8 L, MCV 99.1 H, MCH 30.8, MCHC 31.1 L, RDW Std Deviation 51.3 H, RDW Coeff of Yney 14.2, Plt Count 140 L, MPV 10.9, Immature Gran % (Auto) 0.200, Neut % (Auto) 67.7, Lymph % (Auto) 22.6, [place] % (Auto) 6.6, Eos % (Auto) 2.4, Baso % (Auto) 0.5, Absolute Neuts (auto) 5.7, Absolute Lymphs (auto) 1.91, Nucleated RBC % 0, APTT > 200.0 H*, Sodium 137, Potassium 4.1, Chloride 111 H, Carbon Dioxide 23.0, Anion Gap 3 L, BUN 44 H, Creatinine 2.15 H, Estim Creat Clear Calc 23.04, Est GFR (MDRD) Af Amer 38 L, Est GFR (MDRD) Non-Af 31 L, BUN/Creatinine Ratio 20.5 H, Glucose 101, Calcium 8.7, Total Bilirubin 0.50, AST 17, ALT 15 L, Alkaline Phosphatase 110, Total Protein 6.9, Albumin 2.4 L, Globulin 4.5 H, Albumin/Globulin Ratio 0.5 L, TSH 5.80 H 08/19/23 06:11: POC Glucose 90 ABG Data ABG results: ABG 08/18/23 20:51 Specimen Type AYE Sample Site Not entered O2 % 4.0 VBG pH 7.36 VBG pO2 29 VBG HCO3 26 VBG Total CO2 28 VBG O2 Sat (Calc) 52 VBG Base Excess 1 POC Mix VBG pCO2 Pt Tmp 47.0 O2 Delivery Device Cannula Radiography Diagnostic Testing: Radiology Impression Head/Neck CTA 08/18/23 11:15 IMPRESSION: Greater than 70% stenosis at the origin of the left internal carotid artery. Less than 50% stenosis at the origin of the right internal carotid artery. N.B. : The above Results were Read Back by Mahendra Canada MD to Dr Cammie DO, and understanding confirmed on 08/18/2023 11:39:12 (ET). Electronically Signed: Mahendra Canada MD at 11:38 EDT , Chest X-Ray 08/18/23 12:25 IMPRESSION: Moderate cardiomegaly. Findings suggestive of a mild degree of increased linear markings at the left lung base with blunting of the left costophrenic angle. Electronically Signed: Mahendra Canada MD at 12:55 EDT , Physical Exam Narrative GENERAL: cooperative HEENT: Atraumatic; normocephalic EYES; Anicteric, Normal Conjunctiva NECK; supple, normal thyroid, RESPIRATORY: Diminished to auscultation CARDIOVASCULAR: Regular S1 S2, GI: soft, normoactive bowel sounds, : No Renal angle tenderness; EXTREMITIES: No edema, no clubbing, MUSCULOSKELETAL: no muscle wasting NEURO: Awake; no lateralizing signs. SKIN: Chronic skin changes PSYCH; Flat affect Assessment & Plan Assessment/Plan (1) Confusion: PLAN: Plan Patient is an 83-year-old gentleman with multiple comorbidities including recent diagnosis of seizure disorder who was being managed at the transitional care unit found to have altered mental status stroke alert was called patient transferred to the ED and subsequently admitted to a monitored bed for further management. MRI obtained came back negative for acute CVA 1. Acute metabolic encephalopathy ? Multifactorial including patient underlying chronic hypoxic respiratory failure, obstructive sleep apnea, obesity hypoventilation syndrome,. Admitted to monitored bed MRI obtained came back negative for acute CVA. 2. Physical deconditioning - Requested for PT OT eval and social sciences chair to assist with discharge planning 3. Seizure disorder ?Patient is on Keppra did continue 4. Chronic kidney disease stage IV ? Kidney function at baseline 5. Hypertension - Blood pressure controlled, home medications continued with dose adjustment as needed 6. Gout ? Patient is on allopurinol continue 7. Dyslipidemia -Patient is on statin therapy, continued at home dose 8. Class II obesity with BMI of 40.1 ? Complicating care weight loss advised 9. 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 Recent echo obtained on 06/29/2023 demonstrated EF of 40%. Patient remains compensated on his home dose furosemide 10. Paroxysmal atrial fibrillation ? Rate controlled on systemic anticoagulation with apixaban continue 11. Obstructive sleep apnea ? Consistent use of BiPAP encouraged 12. Obesity hypoventilation syndrome ? Patient is on BiPAP at night 13. Diabetes mellitus type 2 ? Patient is on long-acting insulin continued also placed on Accu-Cheks before meals and at bedtime with sliding scale coverage 14. Valvular heart disease ? With history of aortic valve replacement with bioprosthetic material remained stable 15. Coronary artery disease ? With previous CABG. Patient remains on guideline directed medical therapy 16. Depression with anxiety ? Patient is on SSRI 17. DVT prophylaxis ? On apixaban Time spent in the patient's overall evaluation,decision-making process, review of diagnostic data, adjustment of management, discussion with other providers, nursing nursing and ancillary staff involved in patient's care documentation, 55 minutes Charges/Coding Visit Charges Inpatient E&M: 01142 [facility] L3
[2023-08-19] MEDS: Menthol/Lanolin/Calamine/Znox 113 GM Tube 1 APPLIC TOPICAL ×2 (11:23→22:57)
[2023-08-19] MEDS: levETIRAcetam IV 500 MG in 0.9% Normal Saline (100mL Bag) 100 ML 400 MG IV ×2 (11:23→23:16)
[2023-08-19] MEDS: Miconazole Nitrate 43 GM Bottle 1 APPLIC TOPICAL ×2 (11:24→22:57)
--- NOTE | 2023-08-19 11:51 | CASEMGMT ---
Discharge Planning Referral sent to Gray Yovany via [facility]. Patient had been accepted when he was in TCU. Adrianne Valenzuela, Discharge Planning Asst.
[2023-08-19] MEDS: Pantoprazole Sodium 40 MG in 0.9% Normal Saline (100mL MB+) 100 ML 330 MG IV ×2 (12:45→22:55)
[2023-08-19] MEDS: Aspirin 300 MG Suppository RC (12:45)
[2023-08-19 14:05] LABS: Partial Thromboplast Time 97.5 Seconds (24.1-36.2)
--- NOTE | 2023-08-19 14:19 | CHAPLAIN ---
Type of Pastoral Visit ___ Initial Visit ___ Follow-up Visit ___ On-call Visit ___ General Patient Visit ___ Spiritual Assessment ___ Family Conference ___ Bereavement ___ Rapid Response ___ Code Blue ___ Other (describe below) Pastoral Care Referral From ___ Patient ___ Family ___ Nurse ___ Physician ___ Communication Assistant ___ Cnc Applications Engineer ___ Other (describe below) Sacrament/Intervention ___ Active listening ___ Anointing ___ Muslim ___ Bereavement ___ Communion ___ Cora exploration ___ ___ Life review ___ Prayer ___ Reconciliation ___ Sacrament of Sick ___ Supportive presence ___ Wedding ___ Other (describe below) Pastoral Comments three attempts to visit with patient but he was sleeping, then had PT, and then had ST in his room
[2023-08-19 14:43] LABS: Bedside Glucose 97 mg/dL (74-106)
--- NOTE | 2023-08-19 16:07 | CASEMGMT ---
Social Work SW introduced self and role to patient. SW asked patient about advance directives. Pt did not seem to understand but shook his head. SW reviewed chart which indicated patient's granddaughter was awarded temporary guardianship over patient to assist with care and finances and was to bring documentation. Nathalie Morgan SPECIFICATION CONSULTANT, NET PROGRAMMER
[2023-08-19] MEDS: 0.9% Normal Saline (1000mL) 1,000 ML 50 ML IV (17:26)
[2023-08-19] MEDS: Insulin Lispro 100 UNIT/ML INSULN.PEN SC (17:39)
[2023-08-19 19:19] LABS: Bedside Glucose 171 mg/dL (74-106)
--- NOTE | 2023-08-19 20:50 | NURSING ---
Lab here to draw aptt.
[2023-08-19 21:19] LABS: Partial Thromboplast Time 95.6 Seconds (24.1-36.2)
[2023-08-19] MEDS: HEPARIN/D5w 25,000 UNITS 25,000 UNITS/250 ML IV.SOLN. 8 UNITS CONT INF (22:43)
[2023-08-20 00:58] LABS: Bedside Glucose 144 mg/dL (74-106)
[2023-08-20 03:04] VITALS: BP 145/80; PULSE 70; RESP 16; TEMP 36.7; O2SAT 100; BMI 40.1
[2023-08-20 03:10] VITALS: PULSE 69; RESP 19; O2SAT 100
[2023-08-20 05:21] LABS: Partial Thromboplast Time 96.3 Seconds (24.1-36.2)
--- NOTE | 2023-08-20 05:26 | NURSING ---
aptt 96.3. Heparin ptt stopped x1 hour.
[2023-08-20 07:12] LABS: Bedside Glucose 97 mg/dL (74-106)
--- NOTE | 2023-08-20 08:35 | PCM.PN.HOSP ---
Reason for Visit Reason for Visit: Diagnoses Disorientation, unspecified (08/18/23) Subjective Subjective Patient seen appears to be back to baseline awaiting transfer to care home facility pending insurance approval Objective Data Objective Data Vital Signs: Vital Signs Temp Pulse Resp BP Pulse Ox O2 Del Method O2 Flow Rate 98.1 F 69 19 H 145/80 H 100 Nasal Cannula 3 08/20/23 03:04 08/20/23 03:10 08/20/23 03:10 08/20/23 03:04 08/20/23 03:10 08/20/23 03:10 08/20/23 03:10 Oxygen Flow Rate (L/min) 3 Oxygen Delivery Method Nasal Cannula Weight: 109.4 kg Body Mass Index (BMI) 40.1 Intake & Output: Intake and Output for Last 24 Hours 08/18/23 08/19/23 08/20/23 23:59 23:59 23:59 Intake Total 980.00 / 980.00 2723.63 / 2723.63 153.47 / 153.47 Output Total 1550 / 1550 200 / 200 Balance 980.00 / 580.00 1173.63 / 1173.63 -46.53 / -46.53 Lab / Micro Data 08/19/23 03:05 08/19/23 03:05 Labs: Laboratory Results - last 24 hr 08/19/23 11:27: POC Glucose 97 08/19/23 12:55: APTT 97.5 H* 08/19/23 17:19: POC Glucose 171 H 08/19/23 20:55: APTT 95.6 H* 08/19/23 23:28: POC Glucose 144 H 08/20/23 04:35: APTT 96.3 H* 08/20/23 06:37: POC Glucose 97 Radiography Diagnostic Testing: Radiology Impression Brain CT 08/18/23 11:00 IMPRESSION: Chronic involutional changes of the brain. N.B. : The above Results were Read Back by Mahendra Canada MD to Dr Marquise MD, and understanding confirmed on 08/18/2023 11:28:31 (ET). Electronically Signed: Mahendra Canada MD at 11:29 EDT , ADDENDUM: 08/19/23 1447 IMPRESSION: Chronic involutional changes of the brain. N.B. : The above Results were Read Back by Mahendra Canada MD to Dr Marquise MD, and understanding confirmed on 08/18/2023 11:28:31 (ET). Electronically Signed: Mahendra Canada MD at 11:29 EDT , Brain MRI 08/19/23 09:30 IMPRESSION: 1. No acute intracranial abnormality. 2. Stable senescent changes. Electronically Signed: Jared Garcias MD at 11:18 EDT , Physical Exam Narrative GENERAL: cooperative HEENT: Atraumatic; normocephalic EYES; Anicteric, Normal Conjunctiva NECK; supple, normal thyroid, RESPIRATORY: Diminished to auscultation CARDIOVASCULAR: Regular S1 S2, GI: soft, normoactive bowel sounds, : No Renal angle tenderness; EXTREMITIES: No edema, no clubbing, MUSCULOSKELETAL: no muscle wasting NEURO: Awake; no lateralizing signs. SKIN: Chronic skin changes PSYCH; Flat affect Assessment & Plan Assessment/Plan (1) Confusion: PLAN: Plan Patient is an 83-year-old gentleman with multiple comorbidities including recent diagnosis of seizure disorder who was being managed at the transitional care unit found to have altered mental status stroke alert was called patient transferred to the ED and subsequently admitted to a monitored bed for further management. MRI obtained came back negative for acute CVA 1. Acute metabolic encephalopathy ? Multifactorial including patient underlying chronic hypoxic respiratory failure, obstructive sleep apnea, obesity hypoventilation syndrome,. Admitted to monitored bed MRI obtained came back negative for acute CVA. 2. Physical deconditioning - Requested for PT OT eval and social media manager to assist with discharge planning ? 08/20/2023; awaiting insurance approval prior to transfer to care home facility 3. Seizure disorder ?Patient is on Keppra did continue 4. Chronic kidney disease stage IV ? Kidney function at baseline 5. Hypertension - Blood pressure controlled, home medications continued with dose adjustment as needed 6. Gout ? Patient is on allopurinol continue 7. Dyslipidemia -Patient is on statin therapy, continued at home dose 8. Class II obesity with BMI of 40.1 ? Complicating care weight loss advised 9. 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 Recent echo obtained on 06/29/2023 demonstrated EF of 40%. Patient remains compensated on his home dose furosemide 10. Paroxysmal atrial fibrillation ? Rate controlled on systemic anticoagulation with apixaban continue 11. Obstructive sleep apnea ? Consistent use of BiPAP encouraged 12. Obesity hypoventilation syndrome ? Patient is on BiPAP at night 13. Diabetes mellitus type 2 ? Patient is on long-acting insulin continued also placed on Accu-Cheks before meals and at bedtime with sliding scale coverage 14. Valvular heart disease ? With history of aortic valve replacement with bioprosthetic material remained stable 15. Coronary artery disease ? With previous CABG. Patient remains on guideline directed medical therapy 16. Depression with anxiety ? Patient is on SSRI 17. DVT prophylaxis ? On apixaban Time spent in the patient's overall evaluation,decision-making process, review of diagnostic data, adjustment of management, discussion with other providers, nursing nursing and ancillary staff involved in patient's care documentation, 35 minutes Charges/Coding Visit Charges Inpatient E&M: 51240 [facility] L2
[2023-08-20 09:00] VITALS: BP 151/72; PULSE 65; RESP 18; TEMP 36.2; O2SAT 97
[2023-08-20 09:58] VITALS: O2SAT 93
[2023-08-20] MEDS: levETIRAcetam IV 500 MG in 0.9% Normal Saline (100mL Bag) 100 ML 400 MG IV (10:19)
[2023-08-20] MEDS: Menthol/Lanolin/Calamine/Znox 113 GM Tube 1 APPLIC TOPICAL ×2 (10:20→20:41)
[2023-08-20 10:33] VITALS: BMI 40.1
[2023-08-20] MEDS: Miconazole Nitrate 43 GM Bottle 1 APPLIC TOPICAL ×2 (10:35→20:40)
[2023-08-20] MEDS: Pantoprazole Sodium 40 MG in 0.9% Normal Saline (100mL MB+) 100 ML 330 MG IV (10:37)
--- NOTE | 2023-08-20 10:52 | CASEMGMT ---
Addendum entered by Mary Kay Del Valle 08/20/23 11:13: Social Work SW communicated to Rose in TCU, pt can come back this weekend. SW let pt's granddaughter and physician know, green sheet placed on chart. Pt to return to TCU today, skilled. ADELINE Nguyễn Original Note: Social Work As per physician, pt may be ready for discharge today. As per [facility], [facility] cannot take pt on the weekend, will reassess on Tuesday. SW reached out to granddaughter to see if she would like pt to return to TCU, knowing about the COVID outbreak, or go straight to [facility] from here. As per granddaughter, she is just getting over COVID. She needs to follow up w/the bank for pt to go to [facility], and she has not been able to do this as she has been sick. The soonest she can follow up is Tuesday. After discussing, she is agreeable for pt to return to TCU in the interim and then work on getting to [facility] from [facility]. As pt is medically ready, it would not be appropriate for him to sit here until everything gets worked out for him to go to [facility]. SW explained will reach out to TCU and let her know. SW waiting to hear back from TCU to see if pt can return on the weekend. ADELINE Nguyễn
[2023-08-20 12:34] LABS: Bedside Glucose 134 mg/dL (74-106)
[2023-08-20 15:00] VITALS: BP 127/58; PULSE 66; RESP 18; TEMP 36.3; O2SAT 99
[2023-08-20 15:28] VITALS: BMI 40.1
[2023-08-20 16:44] LABS: Bedside Glucose 131 mg/dL (74-106)
[2023-08-20] MEDS: Atorvastatin Calcium 40 MG Tablet PO (20:40)
[2023-08-20] MEDS: OLANZapine 2.5 MG Tablet PO (20:40)
[2023-08-20] MEDS: APIXABAN 2.5 MG TABLET (WCH) PO (20:40)
[2023-08-20] MEDS: levETIRAcetam 500 MG Tablet PO (20:40)
[2023-08-20] MEDS: Insulin Lispro 100 UNIT/ML INSULN.PEN SC (20:40)
[2023-08-20 21:00] VITALS: BP 164/64; PULSE 81; RESP 18; TEMP 36.3; O2SAT 95
[2023-08-20 21:05] LABS: Bedside Glucose 173 mg/dL (74-106)
[2023-08-21] VITALS (7 sets, daily range): BP systolic 108–168; BP diastolic 57–106; PULSE 63–78; RESP 18; TEMP 36.4–37.1; O2SAT 94–97; BMI 41.8
[2023-08-21 04:36] LABS: Absolute Lymphocyte Count 1.45 X10^3/uL (0.83-4.51); Absolute Neutrophil Count 6.2 X10^3/uL (2.0-7.7); Basophil# 0.04 X10^3/uL; Basophil% 0.5 % (0-1); Eosinophil# 0.12 X10^3/uL; Eosinophils% 1.4 % (0-5); Hematocrit 31.4 % (40-54); Lymphocyte # 1.45 X10^3/ul (0.83-4.51); Lymphocyte % 17.4 % (19-41); Mean Corp Hgb Conc 31.8 g/dL (32-36); Mean Corpuscular Hgb 31.4 pg (27.0-32.0); Mean Corpuscular Volume 98.7 fL (80-94); NRBC Flagged by Analyzer 0 % (0-5); Neutrophil % 74.3 % (47-70); Platelet Count 145 K/mm3 (150-450); RBC Distribution Width CV 14.3 % (11.6-14.6); RBC Distribution Width SD 51.5 fl (35.1-43.9); Red Blood Count 3.18 M/mm3 (4.6-6.2); White Blood Count 8.3 K/mm3 (4.4-11.0)
[2023-08-21 06:10] LABS: Anion Gap 7 (5-15); BUN 46 mg/dL (7-18); BUN/Creat Ratio 16.7 RATIO (10-20); Chloride 110 mmol/L (98-107); Creatinine, Serum 2.75 mg/dL (0.70-1.30); EST Glomerular Filtration Rate 24 mL/min (>60); Est Glom Filt Rate - Afr Amer 29 mL/min (>60); Estimated Creatinine Clearance 18.02 ml/min; Glucose 118 mg/dL (74-106); Magnesium 1.9 mg/dL (1.6-2.6); Phosphorus 2.6 mg/dL (2.5-4.9); Potassium 4.5 mmol/L (3.5-5.1); Sodium Level 139 mmol/L (136-145)
--- NOTE | 2023-08-21 08:44 | PCM.PN.HOSP ---
Reason for Visit Reason for Visit: Diagnoses Disorientation, unspecified (08/18/23) Subjective Subjective Patient seen remains stable with no change in condition plan is for patient to be transferred to nursing home facility pending insurance approval/precertification Objective Data Objective Data Vital Signs: Vital Signs Temp Pulse Resp BP Pulse Ox O2 Del Method O2 Flow Rate 98.7 F 76 18 168/106 H 95 Nasal Cannula 3 08/21/23 03:00 08/21/23 03:00 08/21/23 03:00 08/21/23 03:00 08/21/23 03:00 08/21/23 07:51 08/21/23 07:51 Oxygen Flow Rate (L/min) 3 Oxygen Delivery Method Nasal Cannula Weight: 114 kg Body Mass Index (BMI) 41.8 Intake & Output: Intake and Output for Last 24 Hours 08/19/23 08/20/23 08/21/23 23:59 23:59 23:59 Intake Total 2723.63 / 2723.63 1428.07 / 1428.07 Output Total 1550 / 1550 750 / 750 Balance 1173.63 / 1173.63 678.07 / 678.07 Lab / Micro Data 08/21/23 04:19 08/21/23 04:19 Labs: Laboratory Results - last 24 hr 08/20/23 12:12: POC Glucose 134 H 08/20/23 16:23: POC Glucose 131 H 08/20/23 20:38: POC Glucose 173 H 08/21/23 04:19: WBC 8.3, RBC 3.18 L, Hgb 10.0 L, Hct 31.4 L, MCV 98.7 H, MCH 31.4, MCHC 31.8 L, RDW Std Deviation 51.5 H, RDW Coeff of Yeny 14.3, Plt Count 145 L, MPV 11.0, Immature Gran % (Auto) 0.400, Neut % (Auto) 74.3 H, Lymph % (Auto) 17.4 L, [place] % (Auto) 6.0, Eos % (Auto) 1.4, Baso % (Auto) 0.5, Absolute Neuts (auto) 6.2, Absolute Lymphs (auto) 1.45, Nucleated RBC % 0, Sodium 139, Potassium 4.5, Chloride 110 H, Carbon Dioxide 22.0, Anion Gap 7, BUN 46 H, Creatinine 2.75 H, Estim Creat Clear Calc 18.02, Est GFR (MDRD) Af Amer 29 L, Est GFR (MDRD) Non-Af 24 L, BUN/Creatinine Ratio 16.7, Glucose 118 H, Calcium 8.0 L, Phosphorus 2.6, Magnesium 1.9 Physical Exam Narrative GENERAL: cooperative HEENT: Atraumatic; normocephalic EYES; Anicteric, Normal Conjunctiva NECK; supple, normal thyroid, RESPIRATORY: Diminished to auscultation CARDIOVASCULAR: Regular S1 S2, GI: soft, normoactive bowel sounds, : No Renal angle tenderness; EXTREMITIES: No edema, no clubbing, MUSCULOSKELETAL: no muscle wasting NEURO: Awake; no lateralizing signs. SKIN: Chronic skin changes PSYCH; Flat affect Assessment & Plan Assessment/Plan (1) Confusion: PLAN: Plan Patient is an 83-year-old gentleman with multiple comorbidities including recent diagnosis of seizure disorder who was being managed at the transitional care unit found to have altered mental status stroke alert was called patient transferred to the ED and subsequently admitted to a monitored bed for further management. MRI obtained came back negative for acute CVA 1. Acute metabolic encephalopathy ? Multifactorial including patient underlying chronic hypoxic respiratory failure, obstructive sleep apnea, obesity hypoventilation syndrome,. Admitted to monitored bed MRI obtained came back negative for acute CVA. 2. Physical deconditioning - Requested for PT OT eval and social media designer to assist with discharge planning ? 08/20/2023; awaiting insurance approval prior to transfer to nursing home facility ? 08/21/2023; Patient seen remains stable with no change in condition plan is for patient to be transferred to nursing home facility pending insurance approval/precertification 3. Seizure disorder ?Patient is on Keppra did continue 4. Chronic kidney disease stage IV ? Kidney function at baseline 5. Hypertension - Blood pressure controlled, home medications continued with dose adjustment as needed 6. Gout ? Patient is on allopurinol continue 7. Dyslipidemia -Patient is on statin therapy, continued at home dose 8. Class II obesity with BMI of 40.1 ? Complicating care weight loss advised 9. 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 Recent echo obtained on 06/29/2023 demonstrated EF of 40%. Patient remains compensated on his home dose furosemide 10. Paroxysmal atrial fibrillation ? Rate controlled on systemic anticoagulation with apixaban continue 11. Obstructive sleep apnea ? Consistent use of BiPAP encouraged 12. Obesity hypoventilation syndrome ? Patient is on BiPAP at night 13. Diabetes mellitus type 2 ? Patient is on long-acting insulin continued also placed on Accu-Cheks before meals and at bedtime with sliding scale coverage 14. Valvular heart disease ? With history of aortic valve replacement with bioprosthetic material remained stable 15. Coronary artery disease ? With previous CABG. Patient remains on guideline directed medical therapy 16. Depression with anxiety ? Patient is on SSRI 17. DVT prophylaxis ? On apixaban Time spent in the patient's overall evaluation,decision-making process, review of diagnostic data, adjustment of management, discussion with other providers, nursing nursing and ancillary staff involved in patient's care documentation, 35 minutes Charges/Coding Visit Charges Inpatient E&M: 54211 [facility] L2
[2023-08-21] MEDS: levETIRAcetam 500 MG Tablet PO ×2 (08:56→21:07)
[2023-08-21] MEDS: Doxepin Hydrochloride 10 MG Capsule PO (08:56)
[2023-08-21] MEDS: Potassium Chloride Oral Tablet 20 MEQ PO (08:56)
[2023-08-21] MEDS: Multivitamins,Therapeutic Tablet 1 TABLET PO (08:57)
[2023-08-21] MEDS: Allopurinol 300 MG Tablet 150 MG PO (09:00)
[2023-08-21] MEDS: Cholecalciferol (VIT D3) 25 MCG TABLET (1,000 UNITS) PO (09:00)
[2023-08-21] MEDS: Furosemide 40 MG Tablet PO (09:00)
[2023-08-21] MEDS: Calcitriol 0.25 MCG Capsule 0.5 MCG PO (09:00)
[2023-08-21] MEDS: Psyllium 1 PACKET PO (09:01)
[2023-08-21] MEDS: Miconazole Nitrate 43 GM Bottle 1 APPLIC TOPICAL ×2 (09:01→21:02)
[2023-08-21] MEDS: Menthol/Lanolin/Calamine/Znox 113 GM Tube 1 APPLIC TOPICAL ×2 (09:02→21:02)
[2023-08-21] MEDS: APIXABAN 2.5 MG TABLET (WCH) PO ×2 (09:02→21:02)
[2023-08-21] MEDS: Isosorbide Mononitrate 30 MG Tablet PO (09:03)
[2023-08-21] MEDS: Senna/Docusate Sodium 1 Tablet PO (09:03)
[2023-08-21] MEDS: Sertraline 50 MG Tablet 25 MG PO (09:04)
[2023-08-21] MEDS: Famotidine 20 MG Tablet PO (09:04)
[2023-08-21] MEDS: Insulin Lispro 100 UNIT/ML INSULN.PEN SC ×3 (11:47→21:11)
[2023-08-21 12:11] LABS: Bedside Glucose 179 mg/dL (74-106)
[2023-08-21 16:58] LABS: Bedside Glucose 150 mg/dL (74-106)
[2023-08-21] MEDS: Budesonide Respules 0.5 MG/2 ML AMPUL.NEB. INHALATION (18:41)
[2023-08-21] MEDS: OLANZapine 2.5 MG Tablet PO (21:02)
[2023-08-21] MEDS: Atorvastatin Calcium 40 MG Tablet PO (21:02)
[2023-08-21 21:29] LABS: Bedside Glucose 181 mg/dL (74-106)
[2023-08-22 02:42] VITALS: O2SAT 94
[2023-08-22 02:55] VITALS: BP 113/50; PULSE 71; RESP 18; TEMP 36.6; O2SAT 96
[2023-08-22 04:29] VITALS: BMI 41.1
[2023-08-22 05:30] LABS: Absolute Lymphocyte Count 1.57 X10^3/uL (0.83-4.51); Absolute Neutrophil Count 7.2 X10^3/uL (2.0-7.7); Basophil# 0.04 X10^3/uL; Basophil% 0.4 % (0-1); Eosinophil# 0.13 X10^3/uL; Eosinophils% 1.4 % (0-5); Hematocrit 32.2 % (40-54); Hemoglobin 10.2 g/dL (13.0-16.5); Lymphocyte # 1.57 X10^3/ul (0.83-4.51); Lymphocyte % 16.5 % (19-41); Mean Corp Hgb Conc 31.7 g/dL (32-36); Mean Corpuscular Hgb 31.1 pg (27.0-32.0); Mean Corpuscular Volume 98.2 fL (80-94); Mean Platelet Vol. 10.8 fl (6.2-12.0); Monocyte# 0.53 X10^3/uL; Monocyte% 5.6 % (0-10); NRBC Flagged by Analyzer 0 % (0-5); Neutrophil # 7.22 X10^3/uL (2.7-7.7); Neutrophil % 75.8 % (47-70); Platelet Count 137 K/mm3 (150-450); RBC Distribution Width CV 14.2 % (11.6-14.6); RBC Distribution Width SD 51.4 fl (35.1-43.9); Red Blood Count 3.28 M/mm3 (4.6-6.2); White Blood Count 9.5 K/mm3 (4.4-11.0)
[2023-08-22 06:00] LABS: Anion Gap 6 (5-15); BUN 46 mg/dL (7-18); BUN/Creat Ratio 18.3 RATIO (10-20); Calcium,Total 8.7 mg/dL (8.5-10.1); Chloride 112 mmol/L (98-107); Creatinine, Serum 2.51 mg/dL (0.70-1.30); EST Glomerular Filtration Rate 26 mL/min (>60); Est Glom Filt Rate - Afr Amer 32 mL/min (>60); Estimated Creatinine Clearance 19.74 ml/min; Glucose 131 mg/dL (74-106); Potassium 4.7 mmol/L (3.5-5.1); Sodium Level 139 mmol/L (136-145)
[2023-08-22 06:28] LABS: Bedside Glucose 124 mg/dL (74-106)
[2023-08-22 07:16] VITALS: PULSE 69; RESP 18; O2SAT 100
[2023-08-22] MEDS: Budesonide Respules 0.5 MG/2 ML AMPUL.NEB. INHALATION (07:18)
--- NOTE | 2023-08-22 09:38 | CASEMGMT ---
Discharge Planning Updates sent to Gray Pedroza with message regarding status of referral. Awaiting response. Adrianne Valenzuela, Discharge Planning Asst.
--- NOTE | 2023-08-22 09:56 | PN.HOSP_ITS ---
Reason for Visit Reason for Visit: Diagnoses Disorientation, unspecified (08/18/23) Subjective Subjective No events feels well. Patient's granddaughter was at bedside and states that he chronically has good and bad days when he waxes and wanes in regards to his mentation. His hospitalization has been no different. Objective Data Objective Data Vital Signs: Vital Signs Temp Pulse Resp BP Pulse Ox O2 Del Method O2 Flow Rate 36.6 C 71 18 113/50 L 96 Nasal Cannula 4 08/22/23 02:55 08/22/23 02:55 08/22/23 02:55 08/22/23 02:55 08/22/23 02:55 08/22/23 02:55 08/22/23 02:55 Oxygen Flow Rate (L/min) 4 Oxygen Delivery Method Nasal Cannula Weight: 112.2 kg Body Mass Index (BMI) 41.1 Intake & Output: Intake and Output for Last 24 Hours 08/20/23 08/21/23 08/22/23 23:59 23:59 23:59 Intake Total 1428.07 / 1428.07 480 / 480 Output Total 750 / 750 200 / 500 450 / 450 Balance 678.07 / 678.07 280 / -20 -450 / -450 Lab / Micro Data 08/22/23 05:15 08/22/23 05:15 Labs: Laboratory Results - last 24 hr 08/21/23 11:46: POC Glucose 179 H 08/21/23 16:36: POC Glucose 150 H 08/21/23 21:10: POC Glucose 181 H 08/22/23 05:15: WBC 9.5, RBC 3.28 L, Hgb 10.2 L, Hct 32.2 L, MCV 98.2 H, MCH 31.1, MCHC 31.7 L, RDW Std Deviation 51.4 H, RDW Coeff of Yeny 14.2, Plt Count 137 L, MPV 10.8, Immature Gran % (Auto) 0.300, Neut % (Auto) 75.8 H, Lymph % (Auto) 16.5 L, [place] % (Auto) 5.6, Eos % (Auto) 1.4, Baso % (Auto) 0.4, Absolute Neuts (auto) 7.2, Absolute Lymphs (auto) 1.57, Nucleated RBC % 0, Sodium 139, Potassium 4.7, Chloride 112 H, Carbon Dioxide 21.0, Anion Gap 6, BUN 46 H, Creatinine 2.51 H, Estim Creat Clear Calc 19.74, Est GFR (MDRD) Af Amer 32 L, Est GFR (MDRD) Non-Af 26 L, BUN/Creatinine Ratio 18.3, Glucose 131 H, Calcium 8.7 08/22/23 06:06: POC Glucose 124 H Physical Exam Const alert and no apparent distress Resp normal respiratory effort, no retractions, no use of accessory muscles and clear to auscultation bilaterally Cardio regular rate, regular rhythm, S1 normal heart sound and S2 normal heart sound GI normal to inspection, nondistended, normoactive bowel sounds, soft to palpation, non-tender and non-distended Assessment & Plan Assessment/Plan (1) Confusion: PLAN: Acute metabolic encephalopathy Multifactorial including patient underlying chronic hypoxic respiratory failure, obstructive sleep apnea, obesity hypoventilation syndrome,. MRI brain negative for CVA. Likely chronic fluctuation the patient does have. Recommend outpatient geriatric evaluation for possible dementia. (2) Debility: PLAN: Patient to go back to [facility]. PLAN: Plan Chronic conditions * Seizure disorder?Patient is on Keppra did continue * Chronic kidney disease stage IV? Kidney function at baseline * Hypertension- Blood pressure controlled, home medications continued with dose adjustment as needed * Gout? Patient is on allopurinol continue * Dyslipidemia-Patient is on statin therapy, continued at home dose * Class II obesity with BMI of 40.1? Complicating care weight loss advised * Chronic congestive heart failure with reduced ejection fraction? Recent echo obtained on 06/29/2023 demonstrated EF of 40%. Patient remains compensated on his home dose furosemide * Paroxysmal atrial fibrillation? Rate controlled on systemic anticoagulation with apixaban continue * Obstructive sleep apnea? Consistent use of BiPAP encouraged * Obesity hypoventilation syndrome? Patient is on BiPAP at night * Diabetes mellitus type 2? 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 With previous CABG. Patient remains on guideline directed medical therapy * Depression with anxiety? Patient is on SSRI
[2023-08-22 11:17] VITALS: O2SAT 91
[2023-08-22] MEDS: Potassium Chloride Oral Tablet 20 MEQ PO (11:30)
[2023-08-22] MEDS: Allopurinol 300 MG Tablet 150 MG PO (11:31)
[2023-08-22] MEDS: APIXABAN 2.5 MG TABLET (WCH) PO (11:33)
[2023-08-22] MEDS: Isosorbide Mononitrate 30 MG Tablet PO (11:34)
[2023-08-22] MEDS: levETIRAcetam 500 MG Tablet PO (11:34)
[2023-08-22] MEDS: Furosemide 40 MG Tablet PO (11:34)
[2023-08-22] MEDS: Famotidine 20 MG Tablet PO (11:35)
[2023-08-22] MEDS: Cholecalciferol (VIT D3) 25 MCG TABLET (1,000 UNITS) PO (11:36)
[2023-08-22] MEDS: Doxepin Hydrochloride 10 MG Capsule PO (11:36)
[2023-08-22] MEDS: Sertraline 50 MG Tablet 25 MG PO (11:36)
[2023-08-22] MEDS: Miconazole Nitrate 43 GM Bottle 1 APPLIC TOPICAL (11:37)
[2023-08-22] MEDS: Aspirin 300 MG Suppository RC (11:46)
[2023-08-22] MEDS: Multivitamins,Therapeutic Tablet 1 TABLET PO (11:46)
[2023-08-22] MEDS: Insulin Lispro 100 UNIT/ML INSULN.PEN SC (11:59)
--- NOTE | 2023-08-22 12:11 | TREXTCAR_ITS ---
Diet Diet Order/Speech Therapy: 08/19/23 13:25 ADA [Diet: Cardiac: Calorie-Controlled] Food consistency:: Pureed Liquid Consistency:: [place]/Mildly Thick Is pt able to select menu?: No Diet Comments: distant supervision, small bites/sips, seated upright for intake How many daily calories?: 1800 calorie Wound(s) right elbow: Wound Type: Abrasion right lower leg: Wound Type: Abrasion left arm: Wound Type: Skin Tear left lower leg: Wound Type: scattered abrasions Therapies Weight Bearing: Full weight bearing Physical Therapy: Eval and Treat Occupational Therapy: Eval and Treat Speech Therapy: Eval and Treat Problem/Diagnosis (1) Confusion: Status: Acute Code(s): R41.0 - Disorientation, unspecified Plan: Acute metabolic encephalopathy Multifactorial including patient underlying chronic hypoxic respiratory fail ure, obstructive sleep apnea, obesity hypoventilation syndrome,. MRI brain negative for CVA. Likely chronic fluctuation the patient does have. Recommend outpatient geriatric evaluation for possible dementia. (2) Debility: Status: Acute Code(s): R53.81 - Other malaise Plan: Patient to go back to [facility]. Plan Chronic conditions * Seizure disorder?Patient is on Keppra did continue * Chronic kidney disease stage IV? Kidney function at baseline * Hypertension- Blood pressure controlled, home medications continued with dose adjustment as needed * Gout? Patient is on allopurinol continue * Dyslipidemia-Patient is on statin therapy, continued at home dose * Class II obesity with BMI of 40.1? Complicating care weight loss advised * Chronic congestive heart failure with reduced ejection fraction? Recent echo obtained on 06/29/2023 demonstrated EF of 40%. Patient remains compensated on his home dose furosemide * Paroxysmal atrial fibrillation? Rate controlled on systemic anticoagulation with apixaban continue * Obstructive sleep apnea? Consistent use of BiPAP encouraged * Obesity hypoventilation syndrome? Patient is on BiPAP at night * Diabetes mellitus type 2? 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 With previous CABG. Patient remains on guideline directed medical therapy * Depression with anxiety? Patient is on SSRI Allergies/Procedures Done in Hospital Allergies Penicillins [PCN] Allergy (Verified 08/18/23 11:43) Swelling Procedures: None Type of Care/Length of Stay Estimated LOS: Convalescent Care Less Than 30 days Type of Care Needed: Skilled Rehab Potential: Fair Prognosis: Fair Additional Orders/Day of Discharge Day of Discharge: 08/22/23 Dietary and Speech Recommendations Dietitian Recommendations/Changes: As medically able, rec CRISTINA to liberal CHO Control 2000 jade/ No Addes slat As medically able, rec 4 oz glucerna shake 4x/day w/ medpass Discharge Plan Admission Admit Date/Time: 08/18/23 14:36 Primary Reason for Your Visit: confusion Attending Provider: Mikey Macias Primary Care Provider: Rios Downey Consulting Providers: Patricia Alcantara; James Camarillo Discharge Orders/Prescriptions Prescriptions: Continued famotidine 20 mg tablet 20 mg PO DAILY olanzapine 2.5 mg tablet 2.5 mg PO QHS Eliquis 2.5 mg tablet 2.5 mg PO BID atorvastatin 40 MG tablet 40 mg PO QHS aspirin 81 MG tablet,delayed release (DR/EC) 81 mg PO DAILY Patient Comments: multivitamin 1 EACH tablet 1 ea PO DAILY insulin regular human 100 UNIT/ML solution 25 unit SC BID Patient Comments: afternoon and night insulin NPH isoph U-100 human 100 unit/mL suspension 25 unit SC BID cholecalciferol (vitamin D3) 1,000 UNIT tablet 25 mcg PO DAILY sertraline 25 MG tablet 25 mg PO DAILY calcitriol 0.25 mcg capsule 0.5 mcg PO MOWEFR allopurinol 300 mg tablet 150 mg PO DAILY Daily Fiber (psyllium-aspart) 3 gram Powder In Packet 1 packet PO BID Qty: 0 0RF potassium chloride 20 mEq tablet extended release 20 meq PO DAILY Qty: 1 0RF doxepin 10 mg capsule 10 mg PO DAILY menthol-zinc oxide [Calmoseptine] 0.44-20.6 % ointment 1 applic topical BID nystatin [Nystop] 100,000 unit/gram powder 1 applic topical BID sennosides-docusate sodium [2-in-1 Laxative] 8.6-50 mg tablet 1 tab-cap PO BID furosemide [Lasix] 40 mg tablet 40 mg PO DAILY levetiracetam [Keppra] 100 mg/mL solution 500 mg PO BID isosorbide mononitrate 30 mg tablet extended release 24 hr 30 mg PO DAILY Qty: 90 4RF Referrals / Follow Up: Rios Downey DO [Primary Care Provider] - Within 2 Weeks Disposition Disposition (needs filled in before D/C Order can be placed): [facility]
--- NOTE | 2023-08-22 12:16 | DS.PCM_ITS ---
Providers Date of Admission: 08/18/23 Primary Care Physician: Dr. Rios Downey, DO Reason For Visit: LEFT SIDED FACIAL DROOP Diagnosis Discharge Diagnosis (1) Confusion: Status: Acute Code(s): R41.0 - Disorientation, unspecified Plan: Acute metabolic encephalopathy Multifactorial including patient underlying chronic hypoxic respiratory failure, obstructive sleep apnea, obesity hypoventilation syndrome,. MRI brain negative for CVA. Likely chronic fluctuation the patient does have. Recommend outpatient geriatric evaluation for possible dementia. (2) Debility: Status: Acute Code(s): R53.81 - Other malaise Plan: Patient to go back to [facility]. Plan Chronic conditions * Seizure disorder?Patient is on Keppra did continue * Chronic kidney disease stage IV? Kidney function at baseline * Hypertension- Blood pressure controlled, home medications continued with dose adjustment as needed * Gout? Patient is on allopurinol continue * Dyslipidemia-Patient is on statin therapy, continued at home dose * Class II obesity with BMI of 40.1? Complicating care weight loss advised * Chronic congestive heart failure with reduced ejection fraction? Recent echo obtained on 06/29/2023 demonstrated EF of 40%. Patient remains compensated on his home dose furosemide * Paroxysmal atrial fibrillation? Rate controlled on systemic anticoagulation with apixaban continue * Obstructive sleep apnea? Consistent use of BiPAP encouraged * Obesity hypoventilation syndrome? Patient is on BiPAP at night * Diabetes mellitus type 2? 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 With previous CABG. Patient remains on guideline directed medical therapy * Depression with anxiety? Patient is on SSRI Medications at Discharge Home Medications aspirin 81 mg tablet,delayed release 81 mg PO DAILY HEART HEALTH 07/11/16 atorvastatin 40 mg tablet 40 mg PO QHS CHOLSTEROL 07/11/16 multivitamin 1 ea PO DAILY HEALTH MAINTENANCE 07/11/16 insulin regular human 100 unit/mL injection solution 25 unit subcut BID DIABETES 07/24/16 cholecalciferol (vitamin D3) 25 mcg (1,000 unit) tablet 25 mcg PO DAILY SUPPLEMENT 10/26/16 sertraline 25 mg tablet 25 mg PO DAILY DEPRESSION 01/10/18 insulin NPH isoph U-100 human 100 unit/mL subcutaneous suspension 25 unit subcut BID DIABETES 03/08/18 famotidine 20 mg tablet 20 mg PO DAILY GERD 11/13/19 olanzapine 2.5 mg tablet 2.5 mg PO QHS DEPRESSION 11/13/19 allopurinol 300 mg tablet 150 mg PO DAILY GOUT 12/07/21 apixaban 2.5 mg tablet (Eliquis) 2.5 mg PO BID BLOOD THINNER 10/07/22 calcitriol 0.25 mcg capsule 0.5 mcg PO MOWEFR SUPPLEMENT 10/07/22 isosorbide mononitrate 30 mg tablet,extended release 24 hr 30 mg PO DAILY HEART #90 tabs 02/01/23 potassium chloride 20 mEq tablet,extended release 20 meq PO DAILY potassium #1 TAB 07/03/23 psyllium husk (aspartame) 3 gram oral powder packet (Daily Fiber (psyllium- aspartame)) 1 packet PO BID constipation #0 ea 07/03/23 doxepin 10 mg capsule 10 mg PO DAILY 08/18/23 furosemide 40 mg tablet (Lasix) 40 mg PO DAILY water pill 08/18/23 levetiracetam 100 mg/mL oral solution (Keppra) 500 mg PO BID 08/18/23 menthol 0.44 %-zinc oxide 20.6 % topical ointment (Calmoseptine) 1 applic topical BID 08/18/23 nystatin 100,000 unit/gram topical powder (Nystop) 1 applic topical BID 08/18/23 sennosides 8.6 mg-docusate sodium 50 mg tablet (2-in-1 Laxative) 1 tab-cap PO BID 08/18/23 Weight / BMI Weight Weight: 112.2 kg Body Mass Index (BMI) 41.1 ABG / Lab / Microbiology Data 08/22/23 05:15 08/22/23 05:15 Laboratory: Laboratory Results - last 24 hr 08/21/23 16:36: POC Glucose 150 H 08/21/23 21:10: POC Glucose 181 H 08/22/23 05:15: WBC 9.5, RBC 3.28 L, Hgb 10.2 L, Hct 32.2 L, MCV 98.2 H, MCH 31.1, MCHC 31.7 L, RDW Std Deviation 51.4 H, RDW Coeff of Yeny 14.2, Plt Count 137 L, MPV 10.8, Immature Gran % (Auto) 0.300, Neut % (Auto) 75.8 H, Lymph % (Auto) 16.5 L, [place] % (Auto) 5.6, Eos % (Auto) 1.4, Baso % (Auto) 0.4, Absolute Neuts (auto) 7.2, Absolute Lymphs (auto) 1.57, Nucleated RBC % 0, Sodium 139, Potassium 4.7, Chloride 112 H, Carbon Dioxide 21.0, Anion Gap 6, BUN 46 H, Creatinine 2.51 H, Estim Creat Clear Calc 19.74, Est GFR (MDRD) Af Amer 32 L, Est GFR (MDRD) Non-Af 26 L, BUN/Creatinine Ratio 18.3, Glucose 131 H, Calcium 8.7 08/22/23 06:06: POC Glucose 124 H Meaningful Use Info Meaningful Use Diagnoses (Choose all that apply): None applicable Discharge Plan Admission Admit Date/Time: 08/18/23 14:36 Primary Reason for Your Visit: confusion Attending Provider: Mikey Macias Primary Care Provider: Rios Downey Consulting Providers: Patricia Alcantara; James Camarillo Discharge Orders/Prescriptions Prescriptions: Continued famotidine 20 mg tablet 20 mg PO DAILY olanzapine 2.5 mg tablet 2.5 mg PO QHS Eliquis 2.5 mg tablet 2.5 mg PO BID atorvastatin 40 MG tablet 40 mg PO QHS aspirin 81 MG tablet,delayed release (DR/EC) 81 mg PO DAILY Patient Comments: multivitamin 1 EACH tablet 1 ea PO DAILY insulin regular human 100 UNIT/ML solution 25 unit SC BID Patient Comments: afternoon and night insulin NPH isoph U-100 human 100 unit/mL suspension 25 unit SC BID cholecalciferol (vitamin D3) 1,000 UNIT tablet 25 mcg PO DAILY sertraline 25 MG tablet 25 mg PO DAILY calcitriol 0.25 mcg capsule 0.5 mcg PO MOWEFR allopurinol 300 mg tablet 150 mg PO DAILY Daily Fiber (psyllium-aspart) 3 gram Powder In Packet 1 packet PO BID Qty: 0 0RF potassium chloride 20 mEq tablet extended release 20 meq PO DAILY Qty: 1 0RF doxepin 10 mg capsule 10 mg PO DAILY menthol-zinc oxide [Calmoseptine] 0.44-20.6 % ointment 1 applic topical BID nystatin [Nystop] 100,000 unit/gram powder 1 applic topical BID sennosides-docusate sodium [2-in-1 Laxative] 8.6-50 mg tablet 1 tab-cap PO BID furosemide [Lasix] 40 mg tablet 40 mg PO DAILY levetiracetam [Keppra] 100 mg/mL solution 500 mg PO BID isosorbide mononitrate 30 mg tablet extended release 24 hr 30 mg PO DAILY Qty: 90 4RF Referrals / Follow Up: Rios Downey DO [Primary Care Provider] - Within 2 Weeks Disposition Disposition (needs filled in before D/C Order can be placed): [facility] Charges/Coding Visit Charges Inpatient E&M: 99717 Disch Hosp
[2023-08-22 12:32] LABS: Bedside Glucose 170 mg/dL (74-106)
--- NOTE | 2023-08-22 12:58 | CASEMGMT ---
Addendum entered by Brittny Alonso 08/22/23 13:22: SW completed a PASRR for patient. Brittny JAMES Original Note: [facility] is able to take patient skilled. SW spoke with patient's granddaughter Maria Luisa. SW explained the situation that instead of going to TCU and moving again to [facility] it would make more sense to go right to [facility]. Maria Luisa was in agreement with this plan. SW notified physician of plan. Plan: d/c to [facility] under skilled level of care. Brittny JAMES
--- NOTE | 2023-08-22 13:45 | CASEMGMT ---
Discharge Planning Discharge orders, signed med list, covid results, and transport time sent to [facility] via [facility]. [facility] will transport patient by cot at 3:30p. Nursing, SW, patient, and his granddaughter updated. Adrianne Valenzuela, Discharge Planning Asst.
--- NOTE | 2023-08-22 14:24 | PHA.DC_ITS ---
Pharmacy [place] Med Reconciliation Pharmacy Service has performed discharge medication reconciliation for this patient. The patient's discharge medication list was reviewed for discrepancies and discrepancies were resolved. Medications at Discharge Home Medications aspirin 81 mg tablet,delayed release 81 mg PO DAILY HEART HEALTH 07/11/16 atorvastatin 40 mg tablet 40 mg PO QHS CHOLSTEROL 07/11/16 multivitamin 1 ea PO DAILY HEALTH MAINTENANCE 07/11/16 insulin regular human 100 unit/mL injection solution 25 unit subcut BID DIABETES 07/24/16 cholecalciferol (vitamin D3) 25 mcg (1,000 unit) tablet 25 mcg PO DAILY SUPPLEMENT 10/26/16 sertraline 25 mg tablet 25 mg PO DAILY DEPRESSION 01/10/18 insulin NPH isoph U-100 human 100 unit/mL subcutaneous suspension 25 unit subcut BID DIABETES 03/08/18 famotidine 20 mg tablet 20 mg PO DAILY GERD 11/13/19 olanzapine 2.5 mg tablet 2.5 mg PO QHS DEPRESSION 11/13/19 allopurinol 300 mg tablet 150 mg PO DAILY GOUT 12/07/21 apixaban 2.5 mg tablet (Eliquis) 2.5 mg PO BID BLOOD THINNER 10/07/22 calcitriol 0.25 mcg capsule 0.5 mcg PO MOWEFR SUPPLEMENT 10/07/22 isosorbide mononitrate 30 mg tablet,extended release 24 hr 30 mg PO DAILY HEART #90 tabs 02/01/23 potassium chloride 20 mEq tablet,extended release 20 meq PO DAILY potassium #1 TAB 07/03/23 psyllium husk (aspartame) 3 gram oral powder packet (Daily Fiber (psyllium- aspartame)) 1 packet PO BID constipation #0 ea 07/03/23 doxepin 10 mg capsule 10 mg PO DAILY 08/18/23 furosemide 40 mg tablet (Lasix) 40 mg PO DAILY water pill 08/18/23 levetiracetam 100 mg/mL oral solution (Keppra) 500 mg PO BID 08/18/23 menthol 0.44 %-zinc oxide 20.6 % topical ointment (Calmoseptine) 1 applic t opical BID 08/18/23 nystatin 100,000 unit/gram topical powder (Nystop) 1 applic topical BID 08/18/23 sennosides 8.6 mg-docusate sodium 50 mg tablet (2-in-1 Laxative) 1 tab-cap PO BID 08/18/23
--- NOTE | 2023-08-22 14:25 | CHAPLAIN ---
Type of Pastoral Visit ___ Initial Visit _x__ Follow-up Visit ___ On-call Visit ___ General Patient Visit ___ Spiritual Assessment ___ Family Conference ___ Bereavement ___ Rapid Response ___ Code Blue ___ Other (describe below) Pastoral Care Referral From _x__ Patient _x__ Family ___ Nurse ___ Physician ___ Nurse Companion ___ [place] ___ Other (describe below) Sacrament/Intervention ___ Active listening ___ Anointing ___ Latter Day ___ Bereavement ___ Communion ___ Cora exploration ___ ___ Life review ___ Prayer ___ Reconciliation ___ Sacrament of Sick _x__ Supportive presence ___ Wedding ___ Other (describe below) Pastoral Comments patient is to be discharged today; granddaughter is at his side; pt however is sound asleep; pt is not disturbed but conversation happens with the granddaughter seeking her support and care;
[2023-08-22 14:49] VITALS: O2SAT 95
[2023-08-22 15:36] VITALS: BP 124/60; PULSE 71; RESP 16; TEMP 36.6; O2SAT 100
== END 2023-08-22 15:42 | disposition skilled nursing facility (03) | DRG 70 ==
LOC: ED 12:37 → PCU 16:58
PROVIDERS: Internal Medicine; Admitting Provider Family Medicine; Emergency Provider Emergency Medicine
DX: G93.41 Metabolic encephalopathy (principal); E43 Unspecified severe protein-calorie malnutrition; E66.2 Morbid (severe) obesity with alveolar hypoventilation; I13.0 Hypertensive heart and chronic kidney disease with heart failure and stage 1 through stage 4 chronic kidney disease, or unspecified chronic kidney disease; J96.11 Chronic respiratory failure with hypoxia; I50.22 Chronic systolic (congestive) heart failure; N18.4 Chronic kidney disease, stage 4 (severe); Z68.41 Body mass index [BMI] 40.0-44.9, adult; E11.22 Type 2 diabetes mellitus with diabetic chronic kidney disease; F03.90 Unspecified dementia, unspecified severity, without behavioral disturbance, psychotic disturbance, mood disturbance, and anxiety; G40.909 Epilepsy, unspecified, not intractable, without status epilepticus; J44.9 Chronic obstructive pulmonary disease, unspecified; I48.0 Paroxysmal atrial fibrillation; Z79.4 Long term (current) use of insulin; F32.A Depression, unspecified; E78.00 Pure hypercholesterolemia, unspecified; I25.10 Atherosclerotic heart disease of native coronary artery without angina pectoris; M10.9 Gout, unspecified; F41.9 Anxiety disorder, unspecified; K21.9 Gastro-esophageal reflux disease without esophagitis; Z95.2 Presence of prosthetic heart valve; Z95.1 Presence of aortocoronary bypass graft; R53.81 Other malaise; Z66 Do not resuscitate; Z99.81 Dependence on supplemental oxygen; Z79.01 Long term (current) use of anticoagulants; Z79.82 Long term (current) use of aspirin; Z79.899 Other long term (current) drug therapy; Z87.891 Personal history of nicotine dependence
CPT/HCPCS: 36415; 70450; 70496; 70498; 70551; 71045; 80048; 80053; 82140; 82803; 82962; 83735; 84100; 84443; 84484; 85025; 85610; 85730; 87426; 92526; 92610; 93005; 94003; 94640; 95819; 97110; 97116; 97162; 97166; 97530; 97535; 97802; 99285; J7030; Q9967

== ENCOUNTER 2023-08-31 15:54 | Emergency (ER) | payer MEDICARE, OTHER, SELFPAY ==
[2023-08-31 15:55] VITALS: BP 158/83; PULSE 60; RESP 18; TEMP 36.1; O2SAT 93
--- NOTE | 2023-08-31 16:22 | CT_ITS ---
STUDY: CT BRAIN WITHOUT CONTRAST REASON FOR EXAM: Male, 83 years old. head injury RADIATION DOSAGE (If Supplied By Facility): CTDIvol = ( 44.99 ) mGy, DLP = ( 812.98 ) mGycm TECHNIQUE: Transaxial CT imaging of the brain was performed without administration of intravenous contrast material. Individualized dose optimization techniques were used for this CT. COMPARISON: CT of the brain August 06, 2023. FINDINGS: Normal soft tissue structures. Normal calvarium. Calcific plaquing of the cavernous carotid Atrophy and moderate periventricular white matter ischemic changes.. Bilateral basal ganglia calcification likely of no clinical significance in patient of this. Normal brainstem. Normal cerebellum. There is no intracranial hemorrhage. There are no findings of an acute ischemic infarction. Normal visualized paranasal sinuses. Postsurgical changes of the orbits. CT/Brain/Head without Contrast IMPRESSION: Atrophy and moderate periventricular white matter ischemic change No evidence for acute intracranial hemorrhage Electronically Signed: Mukul Downey MD at 17:05 EDT ,
--- NOTE | 2023-08-31 16:22 | CT_ITS ---
STUDY: CT CERVICAL SPINE WITHOUT CONTRAST REASON FOR EXAM: Male, 83 years old. polytrauma RADIATION DOSAGE (If Supplied By Facility): CTDIvol = ( 33.02 ) mGy, DLP = ( 632.91 ) mGycm TECHNIQUE: High resolution transaxial imaging was performed without contrast material. Sagittal and coronal images were reconstructed. Individualized dose optimization techniques were used for this CT. COMPARISON: None FINDINGS: Normal craniovertebral junction. Normal anterior atlantoaxial articulation. Normal odontoid process. Normal cervical lordosis. Normal vertebral bodies and posterior osseous elements. C2-3: Normal endplates. Normal disc height and morphology. Normal central canal and intervertebral neuroforamina. C3-4: Minor anterior endplate spurring. Normal disc height and morphology. Normal central canal and intervertebral neuroforamina. C4-5: Narrowed disc space and minor endplate spurring.. Normal central canal. Mild right neural foraminal encroachment secondary to bony hypertrophy. C5-6: Narrowed disc space and endplate spurring with small central disc protrusion.. Narrowed central canal and mild impingement upon the cord. Mild bilateral neural foraminal encroachment secondary to bony hypertrophy C6-7: Normal endplates. Narrowed disc space and normal disc morphology. Normal central canal and intervertebral neuroforamina. C7-T1: Normal endplates. Narrowed disc space and normal disc morphology. Normal central canal and intervertebral neuroforamina. Old nonfused spinous process fracture of T1. CT/Spine Cervical without Contras IMPRESSION: Moderate spondylosis. No acute fracture or other significant abnormality. Electronically Signed: Mukul Downey MD at 17:30 EDT ,
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
[2023-08-31] MEDS: Diphth,Pertuss(Acell),Tet Vac 0.5 ML Vial IM (17:05)
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
[2023-08-31 18:29] VITALS: O2SAT 94
== END 2023-08-31 19:02 | disposition home or self-care (01) ==
PROVIDERS: Emergency Provider Emergency Medicine; Visit Provider Emergency Medicine
DX: S41.111A Laceration without foreign body of right upper arm, initial encounter (principal); J44.9 Chronic obstructive pulmonary disease, unspecified; I50.42 Chronic combined systolic (congestive) and diastolic (congestive) heart failure; E11.22 Type 2 diabetes mellitus with diabetic chronic kidney disease; I48.0 Paroxysmal atrial fibrillation; N18.30 Chronic kidney disease, stage 3 unspecified; S41.112A Laceration without foreign body of left upper arm, initial encounter; S81.012A Laceration without foreign body, left knee, initial encounter; I25.10 Atherosclerotic heart disease of native coronary artery without angina pectoris; G47.33 Obstructive sleep apnea (adult) (pediatric); Z23 Encounter for immunization; Z79.01 Long term (current) use of anticoagulants; Z79.82 Long term (current) use of aspirin; Z95.1 Presence of aortocoronary bypass graft; Z99.81 Dependence on supplemental oxygen; Z87.891 Personal history of nicotine dependence; Z86.73 Personal history of transient ischemic attack (TIA), and cerebral infarction without residual deficits; V43.62XA Car passenger injured in collision with other type car in traffic accident, initial encounter
CPT/HCPCS: 70450; 72125; 90471; 90715; 99284

== ENCOUNTER 2023-09-16 15:19 | Inpatient (IN) | payer MEDICARE, SELFPAY ==
[2023-09-16] VITALS (11 sets, daily range): BP systolic 115–166; BP diastolic 73–90; PULSE 52–62; RESP 14–20; TEMP 35.3–35.9; O2SAT 94–99; BMI 43.5; BMI 43.0
--- NOTE | 2023-09-16 16:30 | EKG12_ITS ---
Test Reason : SOB Blood Pressure : / mmHG Vent. Rate : 051 BPM Atrial Rate : 000 BPM P-R Int : 000 ms QRS Dur : 158 ms QT Int : 530 ms P-R-T Axes : 000 003 263 degrees QTc Int : 488 ms Atrial Fibrillation Left bundle branch block Abnormal ECG Confirmed by BHAVNA BAIG, GALE ([id number]), managing editor MEENU KOEHLER ([id number]) on 09/19/2023 12:46:12 PM Referred By: Confirmed By:REJI HUGGINS MD
--- NOTE | 2023-09-16 16:40 | RAD_ITS ---
INDICATION: chest pain EXAMINATION/TECHNIQUE: X-RAY - portable upright AP chest x-ray COMPARISON: 08/18/2023 FINDINGS: LINES/DEVICES: None. LUNGS: No consolidation, edema or effusion. No pneumothorax. MEDIASTINUM AND CARDIOVASCULAR STRUCTURES: Stable cardiomegaly with CABG changes. BONES AND SOFT TISSUES: Unchanged. RAD/Chest 1 View (Portable) IMPRESSION: Cardiomegaly without radiographic evidence of acute cardiopulmonary disease. Electronically Signed: Vincent Underwood MD at 17:04 EDT ,
[2023-09-16 17:00] LABS: Absolute Lymphocyte Count 1.34 X10^3/uL (0.83-4.51); Absolute Neutrophil Count 4.8 X10^3/uL (2.0-7.7); Basophil# 0.03 X10^3/uL; Basophil% 0.4 % (0-1); Eosinophil# 0.26 X10^3/uL; Eosinophils% 3.7 % (0-5); Hematocrit 32.2 % (40-54); Hemoglobin 10.1 g/dL (13.0-16.5); Lymphocyte # 1.34 X10^3/ul (0.83-4.51); Mean Corp Hgb Conc 31.4 g/dL (32-36); Mean Corpuscular Volume 101.9 fL (80-94); Mean Platelet Vol. 11.2 fl (6.2-12.0); Monocyte# 0.57 X10^3/uL; Monocyte% 8.1 % (0-10); NRBC Flagged by Analyzer 0 % (0-5); Neutrophil # 4.81 X10^3/uL (2.7-7.7); Neutrophil % 68.1 % (47-70); Platelet Count 130 K/mm3 (150-450); RBC Distribution Width CV 16.4 % (11.6-14.6); RBC Distribution Width SD 60.7 fl (35.1-43.9); Red Blood Count 3.16 M/mm3 (4.6-6.2); White Blood Count 7.1 K/mm3 (4.4-11.0)
[2023-09-16 17:21] LABS: Anion Gap 7 (5-15); BUN 53 mg/dL (7-18); Calcium,Total 8.8 mg/dL (8.5-10.1); Chloride 112 mmol/L (98-107); Creatinine, Serum 2.12 mg/dL (0.70-1.30); EST Glomerular Filtration Rate 32 mL/min (>60); Est Glom Filt Rate - Afr Amer 39 mL/min (>60); Estimated Creatinine Clearance 23.37 ml/min; Glucose 131 mg/dL (74-106); Potassium 4.8 mmol/L (3.5-5.1); Sodium Level 141 mmol/L (136-145); Troponin-I HS (w/2H Reflex) 41 pg/mL (3.0-78.0)
--- NOTE | 2023-09-16 18:04 | ED.RN ---
THIS RN ATTEMPTED TO CALL OLIVIA DEBBIE AT 1803 TO OBTAIN AN ACCURATE MED LIST. NO ANSWER.
--- NOTE | 2023-09-16 18:07 | NURSING ---
PCU [facility], HYPOXIA
--- NOTE | 2023-09-16 18:09 | PCM.HP.STD ---
HPI - General General Date of Admission: 09/16/23 Date of Service: 09/16/23 Chief Complaint: Hypoxia, recent discharge from SNF, dyspnea. 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), Former tobacco use, CAD s/p CABG x 4, Valvular Heart Disease s/p AVR, Diabetes mellitus type II, Anxiety and Depression, recent admission 08/18/23 with confusion/aphasia/L sided facial droop discharged on 08/22/23 with CVA ruled out with recommendation for ongoing outpatient evaluation for dementia who now re-presents to the [facility] ED on 09/16/23 with history of discharge from SNF today specifically [facility] with reportedly transition to home and at home patient noted to be hypoxic down to 77% with increased work of breathing, accessory muscle usage prompting ED transition. Even following transitioning back to bed in the ED he still notes having some mild dyspnea since ambulatory trial. He is unsure if he is weight gain or increased swelling. He does admit to orthopnea. Work-up in the ED included T95.5 Temporally, heart rate 56, BP 121/79, respiratory rate 18, 96% on 4 L increasing to 5 L chronically on 4L NC w/ ED ambulatory trial with 94%, sat down and dropped down into the 82/83%, increased to 5L., CBC with WBC 7.1, hemoglobin 10.1, MCV 101.9, platelet 130 without marked shift, BMP with chloride 112, BUN/creatinine 53/2.12, glucose 131, troponin 41, BNP 179, chest x-ray with cardiomegaly without any acute cardiopulmonary findings otherwise, EKG rate controlled atrial fibrillation without acute evidence of ischemia. [facility] Medical History Anemia Atherosclerosis of coronary artery bypass graft without angina pectoris Atherosclerosis of coronary artery of [place] heart without angina pectoris Chronic combined systolic and diastolic CHF (congestive heart failure) Chronic renal failure, stage 3 (moderate) Chronic respiratory failure with hypoxia COPD (chronic obstructive pulmonary disease) Essential (primary) hypertension Former smoker Hyperlipemia Left bundle branch block Lymphedema Morbid obesity with BMI of 45.0-49.9, adult Non-rheumatic aortic stenosis Obstructive sleep apnea Ocular migraine AUTUMN treated with BiPAP PAF (paroxysmal atrial fibrillation) TIA (transient ischemic attack) Type 2 diabetes mellitus without complications Venous insufficiency of both lower extremities Home Medications aspirin 81 mg tablet,delayed release 81 mg PO DAILY HEART HEALTH 07/11/16 [History Last Taken 07/03/23] multivitamin 1 ea PO DAILY HEALTH MAINTENANCE 07/11/16 [History Last Taken 08/18/23] insulin regular human 100 unit/mL injection solution 12 unit subcut BID DIABETES 07/24/16 [History Last Taken 07/02/23] cholecalciferol (vitamin D3) 25 mcg (1,000 unit) tablet 25 mcg PO DAILY SUPPLEMENT 10/26/16 [History Last Taken 08/18/23] sertraline 25 mg tablet 25 mg PO DAILY DEPRESSION 01/10/18 [History Last Taken 08/18/23] insulin NPH isoph U-100 human 100 unit/mL subcutaneous suspension 20 unit subcut BID DIABETES 03/08/18 [History Last Taken 07/03/23] famotidine 20 mg tablet 20 mg PO DAILY GERD 11/13/19 [History Last Taken 08/18/23] olanzapine 2.5 mg tablet 2.5 mg PO QHS DEPRESSION 11/13/19 [History Last Taken 08/17/23] allopurinol 300 mg tablet 300 mg PO DAILY GOUT 12/07/21 [History Last Taken 08/18/23] apixaban 2.5 mg tablet (Eliquis) 2.5 mg PO BID BLOOD THINNER 10/07/22 [History Last Taken 07/03/23] calcitriol 0.25 mcg capsule 0.5 mcg PO MOWEFR SUPPLEMENT 10/07/22 [History Last Taken 08/17/23] isosorbide mononitrate 30 mg tablet,extended release 24 hr 30 mg PO DAILY HEART #90 tabs 02/01/23 [Rx Last Taken 08/18/23] potassium chloride 20 mEq tablet,extended release 20 meq PO DAILY potassium #1 TAB 07/03/23 [Rx Last Taken Unknown] psyllium husk (aspartame) 3 gram oral powder packet (Daily Fiber (psyllium-aspartame)) 1 packet PO BID constipation #0 ea 07/03/23 [Rx Last Taken 07/03/23] levetiracetam 100 mg/mL oral solution (Keppra) 500 mg PO BID 08/18/23 [History Last Taken 08/18/23] menthol 0.44 %-zinc oxide 20.6 % topical ointment (Calmoseptine) 1 applic topical BID 08/18/23 [History Last Taken 08/18/23] nystatin 100,000 unit/gram topical powder (Nystop) 1 applic topical BID 08/18/23 [History Last Taken 08/18/23] sennosides 8.6 mg-docusate sodium 50 mg tablet (2-in-1 Laxative) 1 tab-cap PO BID 08/18/23 [History Last Taken 08/18/23] amlodipine 2.5 mg tablet 2.5 mg PO DAILY 09/16/23 [History Last Taken Unknown] torsemide 20 mg tablet 20 mg PO DAILY 09/16/23 [History Last Taken Unknown] Allergy/AdvReac Type Severity Reaction Status Date / Time Penicillins [PCN] Allergy Swelling Verified 09/16/23 15:20 Family History Father Myocardial infarction Mother CVA (cerebral vascular accident) Brother CAD (coronary artery disease) Diabetes Surgical History H/O aortic valve replacement (02/24/16) H/O coronary artery bypass surgery (02/24/16) Hx of cholecystectomy (01/13/17) Social History household members: family and other details: Granddaughter. Smoking Status: Former smoker how long ago did patient quit smokin + years alcohol intake: never substance use type: does not use caffeine: Yes Type: carbonated beverages and tea ROS ROS Narrative Admission Review of Systems: CONSTITUTIONAL: No weight loss, fever, chills, + weakness or fatigue. HEENT: Eyes: No visual loss, blurred vision, double vision or yellow sclerae. Ears, Nose, Throat: No hearing loss, sneezing, congestion, runny nose or sore throat. SKIN: + Various abrasions, chronic venous stasis skin changes bilateral lower extremity, staged ecchymoses CARDIOVASCULAR: + Orthopnea, chronic BL LE edema. No chest pain, chest pressure or chest discomfort, palpitations, syncopal events. RESPIRATORY: + Shortness of breath. No cough or sputum, wheezing, hemoptysis. GASTROINTESTINAL: No anorexia, nausea, vomiting or diarrhea, abdominal pain, melena, BRBPR. GENITOURINARY: No dysuria, frequency, urgency or retention. NEUROLOGICAL: + Chronic memory impairment with ongoing outpatient dementia evaluation, seizure disorder. No headache, dizziness, syncope, paralysis, ataxia, numbness or tingling in the extremities, focal weakness, change in bowel or bladder control, seizure. MUSCULOSKELETAL: + muscle, back pain, joint pain or stiffness. HEMATOLOGIC: + anemia, easy bleeding or bruising. LYMPHATICS: No enlarged nodes. No history of splenectomy. PSYCHIATRIC: + history of depression or anxiety. ENDOCRINOLOGIC: No reports of sweating, cold or heat intolerance. No polyuria or polydipsia. ALLERGIES: + history of rhinitis. Vital Signs Vital Signs Vital Signs: 09/16/23 15:20 09/16/23 16:12 09/16/23 16:13 Temperature 95.5 F L Temperature Source Temporal Pulse Rate 56 L 52 L Respiratory Rate 18 17 Respiratory Effort Short of Breath Labored Respiratory Depth Normal Respiratory Pattern Normal Blood Pressure 121/79 H 137/74 H Blood Pressure Mean 93 95 Pulse Ox 96 98 Oxygen Delivery Method Nasal Cannula Nasal Cannula Nasal Cannula Oxygen Flow Rate (L/min) 4 5 5 09/16/23 16:39 Temperature Temperature Source Pulse Rate Respiratory Rate Respiratory Effort Respiratory Depth Respiratory Pattern Blood Pressure Blood Pressure Mean Pulse Ox 98 Oxygen Delivery Method Nasal Cannula Oxygen Flow Rate (L/min) 5 Weight Weight: 261 lb 9.6 oz Body Mass Index (BMI) 43.5 Physical Exam Narrative Physical Examination: General: Awake, alert, oriented to self but does have significant memory impairment and this is stable chronic, following commands, notes still some mild dyspnea but more comfortable, seated upright in the ED bed. Skin: Normal color, normal turgor, no icterus, no cyanosis except very staged ecchymoses especially to the extremities, anterior cifuentes abrasions, very staged ecchymotic changes. HEENT: AT/NC, EOMI, PERRLA, MMM, no carotid bruits, thickened neck makes evaluation difficult for JVD as well as facial hair. Lungs: Markedly diminished, greater bases, no evidence of any respiratory distress, no rales, ronchi or wheezing. Heart: Irregular, rate controlled; no gallop, rub audible, + SM. Abdomen: Soft, morbidly obese, NTTP, distant BS, difficult to assess distention and HSM given habitus. Extremities: No cyanosis, no clubbing, chronic bilateral lower extremity lymphedema, pitting, see skin. Neurological: Awake, alert, oriented to self but does have significant memory impairment and this is stable chronic, following commands, notes still some mild dyspnea but more comfortable, seated upright in the ED bed, cognitive function currently stable with chronic underlying memory impairment with ongoing dementia evaluation outpatient, pupils equally reactive to light and accommodation, cranial nerves appear grossly normal, moving all extremities, strength severely global decrease secondary to acute presentation complaints and underlying comorbidities. Psychiatric: Affect appears flat, fatigued, no acute evidence of depressive or anxiety feelings but does have underlying history. Results Lab / Micro Data 09/16/23 16:51 09/16/23 16:51 Labs: Laboratory Results - last 24 hr 09/16/23 16:51: WBC 7.1, RBC 3.16 L, Hgb 10.1 L, Hct 32.2 L, MCV 101.9 H, MCH 32.0, MCHC 31.4 L, RDW Std Deviation 60.7 H, RDW Coeff of Yeny 16.4 H, Plt Count 130 L, MPV 11.2, Immature Gran % (Auto) 0.700, Neut % (Auto) 68.1, Lymph % (Auto) 19.0, Cochran % (Auto) 8.1, Eos % (Auto) 3.7, Baso % (Auto) 0.4, Absolute Neuts (auto) 4.8, Absolute Lymphs (auto) 1.34, Nucleated RBC % 0, Sodium 141, Potassium 4.8, Chloride 112 H, Carbon Dioxide 22.0, Anion Gap 7, BUN 53 H, Creatinine 2.12 H, Estim Creat Clear Calc 23.37, Est GFR (MDRD) Af Amer 39 L, Est GFR (MDRD) Non-Af 32 L, BUN/Creatinine Ratio 25.0 H, Glucose 131 H, Calcium 8.8, Troponin I High Sens 41, B-Natriuretic Peptide 179.0 H Radiology Impression Chest X-Ray 09/16/23 16:40 IMPRESSION: Cardiomegaly without radiographic evidence of acute cardiopulmonary disease. Electronically Signed: Vincent Underwood MD at 17:04 EDT , Assessment & Plan Assessment/Plan (1) Acute exacerbation of CHF (congestive heart failure): PLAN: Plan The patient is an 83 y/o M w/ PMHx: CKD stage IV, HTN, HLD, Anxiety and Depression, Morbid Obesity, Seizure disorder, PAF, GERD, Combined Chronic CHF, AUTUMN on BIPAP, COPD with Chronic Hypoxic Respiratory Failure (4L NC), Former tobacco use, CAD s/p CABG x 4, Valvular Heart Disease s/p AVR, Diabetes mellitus type II, Anxiety and Depression, recent admission 08/18/23 with confusion/aphasia/L sided facial droop discharged on 08/22/23 with CVA ruled out with recommendation for ongoing outpatient evaluation for dementia who now re-presents to the [facility] ED on 09/16/23 with history of discharge from SNF today specifically [facility] with reportedly transition to home and at home patient noted to be hypoxic down to 77% with increased work of breathing, accessory muscle usage prompting ED transition. #1. Acute Hypoxia on Chronic secondary to Decompensated Systolic/Diastolic CHF (Combined): Will admit to PCU, maintain on cardiac telemetry, obtain cardiac enzyme series, obtain serial EKGs, continue IV lasix diuresis, monitor I/Os, maintain on intake restriction, continue medical therapy, recent normal TSH and recent FLP obtained during prior CVA evaluation admission thus defer repeat, will obtain mag level. Most recent echocardiogram 06/29/2023 with normal LV size, EF 40%, mild to moderate TVI, PASP 44 mmHg, bubbles contrast adding negative, bioprosthetic aortic valve without concerning findings thus will not repeat. Will place neck Joe wraps. PT/OT/registered nurse hh case manager consultation for discharge planning. To be cautious however will obtain full respiratory viral panel, COVID PCR and procalcitonin. #2. Recent CVA evaluation, CVA ruled out with suspected underlying dementia, complicates presentation: Recent admission with unremarkable MRI, no marked carotid disease, echocardiogram had recently been performed with negative bubble study this had not been repeated during that presentation eventually improving with suspected underlying likely dementia with recommended outpatient ongoing evaluation and work-up. PT/OT/case management consulted for discharge planning as noted. #3. Seizure disorder: We will continue patient home Keppra regimen. #4. Hypertension: As noted will pulse dose IV Lasix and is clinically improved transition back to oral regimen, continue isosorbide, as needed IV hydralazine. #5. Hyperlipidemia: We will continue patient on statin therapy. #6. CKD stage IV: Chronic Kidney Disease Stage: Admission BUN/Cr 53/2.12, baseline renal function 2.2-2.5 primarily more recently, repeat BMP in AM. #7. PAF: Will continue patient home apixaban regimen, not on rate or rhythm agent #8. 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 #9. CAD s/p CABG x 4, will continue patient home aspirin, apixaban, statin, not on beta-josey for unclear reasons however also not on JOE inhibitor/ARB likely secondary to renal disease. #10. Valvular Heart Disease: s/p AVR, 06/29/2023 echocardiogram with normal LV size, EF 40%, mild to moderate TVI, PASP 44 mmHg with a negative bubble contrast study and appropriate appearing bioprosthetic aortic valve. #11. Diabetes mellitus type II: Hold oral home regimen, will continue long-acting insulin regimen, maintain on ADA diet with accu checks with ISS. #12. Anxiety and depression: We will continue patient home olanzapine and sertraline home regimen. #13. Morbid Obesity: Weight loss and lifestyle changes encouraged. #14. Former tobacco use: Encourage continued tobacco cessation. #15. GERD: We will continue patient on famotidine regimen. #16. AUTUMN: BIPAP q HS. #17. DVT prophylaxis: We will continue patient home Eliquis regimen. #18. CODE status: DNR-CCA, no intubation status. Charges/Coding Visit Charges Inpatient E&M: 81707 Init Hosp L3
--- NOTE | 2023-09-16 18:09 | ED.RN ---
THIS RN TOOK PHONE CALL FROM ERIKA GUSMAN FROM [facility]. ERIKA GUSMAN TO SEND UPDATED MEDICATION LIST PER PT AND PT GRANDDAUGHTER REQUEST. ERIKA GUSMAN ASKING WHY PT HERE. PER PT AND PT GRANDDAUGHTER REQUEST, NO INFORMATION GIVEN TO ERIKA GUSMAN WITH [facility].
--- NOTE | 2023-09-16 18:37 | EDS_ITS ---
HPI History of Present Illness Chief Complaint: Shortness of Breath Narrative Narrative: 83-year-old male with history of CHF, A-fib, CKD, CAD, diabetes, hypertension, sleep apnea presenting with hypoxic episode. Patient was recently inpatient at [facility] for what sounds like about a month. He was discharged to a long-term facility where he just left today. His daughter states that they were walking to the store and he was working to breathe and she put a pulse ox on him and noted that he was in the upper 70s on his pulse ox. He normally wears 4 L when ambulating and 2 L when sitting. They presented to the ED for evaluation. He does state that when he was at the retirement he was huffing and puffing when he was walking but not like today. He states that they change his Lasix to torsemide while he was at the long-term facility he is not sure why they did this. They also put him on potassium. [facility] Medical History Anemia Atherosclerosis of coronary artery bypass graft without angina pectoris Atherosclerosis of coronary artery of [place] heart without angina pectoris Chronic combined systolic and diastolic CHF (congestive heart failure) Chronic renal failure, stage 3 (moderate) Chronic respiratory failure with hypoxia COPD (chronic obstructive pulmonary disease) Essential (primary) hypertension Former smoker Hyperlipemia Left bundle branch block Lymphedema Morbid obesity with BMI of 45.0-49.9, adult Non-rheumatic aortic stenosis Obstructive sleep apnea Ocular migraine AUTUMN treated with BiPAP PAF (paroxysmal atrial fibrillation) TIA (transient ischemic attack) Type 2 diabetes mellitus without complications Venous insufficiency of both lower extremities Home Medications aspirin 81 mg tablet,delayed release 81 mg PO DAILY HEART HEALTH 07/11/16 [History Last Taken 07/03/23] multivitamin 1 ea PO DAILY HEALTH MAINTENANCE 07/11/16 [History Last Taken 08/18/23] insulin regular human 100 unit/mL injection solution 12 unit subcut BID DIABETES 07/24/16 [History Last Taken 07/02/23] cholecalciferol (vitamin D3) 25 mcg (1,000 unit) tablet 25 mcg PO DAILY SUPPLEMENT 10/26/16 [History Last Taken 08/18/23] sertraline 25 mg tablet 25 mg PO DAILY DEPRESSION 01/10/18 [History Last Taken 08/18/23] insulin NPH isoph U-100 human 100 unit/mL subcutaneous suspension 20 unit subcut BID DIABETES 03/08/18 [History Last Taken 07/03/23] famotidine 20 mg tablet 20 mg PO DAILY GERD 11/13/19 [History Last Taken 08/18/23] olanzapine 2.5 mg tablet 2.5 mg PO QHS DEPRESSION 11/13/19 [History Last Taken 08/17/23] allopurinol 300 mg tablet 300 mg PO DAILY GOUT 12/07/21 [History Last Taken 08/18/23] apixaban 2.5 mg tablet (Eliquis) 2.5 mg PO BID BLOOD THINNER 10/07/22 [History Last Taken 07/03/23] calcitriol 0.25 mcg capsule 0.5 mcg PO MOWEFR SUPPLEMENT 10/07/22 [History Last Taken 08/17/23] isosorbide mononitrate 30 mg tablet,extended release 24 hr 30 mg PO DAILY HEART #90 tabs 02/01/23 [Rx Last Taken 08/18/23] potassium chloride 20 mEq tablet,extended release 20 meq PO DAILY potassium #1 TAB 07/03/23 [Rx Last Taken Unknown] psyllium husk (aspartame) 3 gram oral powder packet (Daily Fiber (psyllium- aspartame)) 1 packet PO BID constipation #0 ea 07/03/23 [Rx Last Taken 07/03/23] levetiracetam 100 mg/mL oral solution (Keppra) 500 mg PO BID 08/18/23 [History Last Taken 08/18/23] menthol 0.44 %-zinc oxide 20.6 % topical ointment (Calmoseptine) 1 applic topical BID 08/18/23 [History Last Taken 08/18/23] nystatin 100,000 unit/gram topical powder (Nystop) 1 applic topical BID 08/18/23 [History Last Taken 08/18/23] sennosides 8.6 mg-docusate sodium 50 mg tablet (2-in-1 Laxative) 1 tab-cap PO BID 08/18/23 [History Last Taken 08/18/23] amlodipine 2.5 mg tablet 2.5 mg PO DAILY 09/16/23 [History Last Taken Unknown] torsemide 20 mg tablet 20 mg PO DAILY 09/16/23 [History Last Taken Unknown] Allergy/AdvReac Type Severity Reaction Status Date / Time Penicillins [PCN] Allergy Swelling Verified 09/16/23 15:20 Family History Father Myocardial infarction Mother CVA (cerebral vascular accident) Brother CAD (coronary artery disease) Diabetes Surgical History H/O aortic valve replacement (02/24/16) H/O coronary artery bypass surgery (02/24/16) Hx of cholecystectomy (01/13/17) Social History household members: family and other details: Granddaughter. Smoking Status: Former smoker how long ago did patient quit smokin + years alcohol intake: never substance use type: does not use caffeine: Yes Type: carbonated beverages and tea ROS ROS ED Constitutional Constitutional ED: Denies chills, fever(s) or sweats Eyes Eyes: Denies blurry vision or change in vision ENT ENT ED: Denies ear pain or sore throat Cardiovascular Cardiovascular: Reports orthopnea; Denies chest pain, palpitations or racing heartbeat Respiratory/Chest Respiratory/Chest: Reports dyspnea, dyspnea on exertion and orthopnea; Denies sputum Gastrointestinal Gastrointestinal: Denies constipation, diarrhea, nausea or vomiting Genitourinary Genitourinary ED: Denies dysuria, hematuria or urinary frequency Musculoskeletal Musculoskeletal: Denies arthralgias, myalgias or neck pain Integumentary Denies abscess, Abrasions or rash Neurologic Neurologic: Denies headache(s), paresthesias or weakness Psychiatric Psychiatric: Denies anxiety, depression, suicidal ideation or suicidal thoughts Endocrine Endocrinology: Denies polydipsia or polyuria EXAM Physical Exam Const Vital Signs: 09/16/23 15:20 09/16/23 16:12 09/16/23 16:13 Temperature 95.5 F L Temperature Source Temporal Pulse Rate 56 L 52 L Respiratory Rate 18 17 Respiratory Effort Short of Breath Labored Respiratory Depth Normal Respiratory Pattern Normal Blood Pressure 121/79 H 137/74 H Blood Pressure Mean 93 95 Pulse Ox 96 98 Oxygen Delivery Method Nasal Cannula Nasal Cannula Nasal Cannula Oxygen Flow Rate (L/min) 4 5 5 09/16/23 16:39 Temperature Temperature Source Pulse Rate Respiratory Rate Respiratory Effort Respiratory Depth Respiratory Pattern Blood Pressure Blood Pressure Mean Pulse Ox 98 Oxygen Delivery Method Nasal Cannula Oxygen Flow Rate (L/min) 5 Positive well nourished and obese General Appearance ED: NAD Nutritional Appearance: obese HEENT Reports moist mucous membranes Eyes PERRL and EOMs intact bilaterally Neck no lymphadenopathy Resp normal respiratory effort Resp Narrative: Bibasilar crackles. Cardio regular rhythm Rate: bradycardia GI non-tender Extremity General Extremety ED: Yes edema General Extremity: edema Neuro oriented x3 and CN's II-XII intact bilaterally Motor Exam: strength 5/5 throughout Psych mental status grossly normal MDM MDM MDM Narrative Medical decision making narrative: 83-year-old male presenting with shortness of breath. He has bibasilar crackles on exam. He has lower extremity edema and history of heart failure I suspect that is what he is in today. Differential includes ACS, pneumonia, dehydration, electrolyte abnormalities, anemia. CBC was obtained to assess white blood cell count, hemoglobin, platelets. BMP to assess renal function and electrolytes. High-sensitivity troponin and EKG were obtained to assess for cardiac dysrhythmia and ischemia. BNP to assess for CHF. EKG on my interpretation shows what appears to be A-fib at 51 bpm. Chest x-ray my interpretation cardiomegaly but no significant pulmonary vascular congestion. CBC shows normal white blood cell count of 7.1. Hemoglobin 10.1 and at baseline. Electrolytes are unremarkable. Creatinine slightly elevated today at 2.12. High-sensitivity troponin is 41 and BNP is 179. I attempted to ambulate the patient around the emergency room with his 4 L and a walker and he did fairly well for the first part of the walker after returning to the room he had severe work of breathing and his pulse ox dropped to 82 to 83% on 4 L. We sat him down and put 6 L of oxygen on him and after couple of minutes he came up to 96. At this point I think it safer to admit him to the hospital given his hypoxia his work of breathing. He is amenable to this. Discussed with hospitalist for admission. Impression: 1. Hypoxia 2. CHF Lab Data Attestation: I reviewed the patient's lab results. Labs: Laboratory Results - last 24 hr 09/16/23 16:51 WBC 7.1 RBC 3.16 L Hgb 10.1 L Hct 32.2 L MCV 101.9 H MCH 32.0 MCHC 31.4 L RDW Std Deviation 60.7 H RDW Coeff of Yeny 16.4 H Plt Count 130 L MPV 11.2 Immature Gran % (Auto) 0.700 Neut % (Auto) 68.1 Lymph % (Auto) 19.0 [place] % (Auto) 8.1 Eos % (Auto) 3.7 Baso % (Auto) 0.4 Absolute Neuts (auto) 4.8 Absolute Lymphs (auto) 1.34 Nucleated RBC % 0 Sodium 141 Potassium 4.8 Chloride 112 H Carbon Dioxide 22.0 Anion Gap 7 BUN 53 H Creatinine 2.12 H Estim Creat Clear Calc 23.37 Est GFR (MDRD) Af Amer 39 L Est GFR (MDRD) Non-Af 32 L BUN/Creatinine Ratio 25.0 H Glucose 131 H Calcium 8.8 Troponin I High Sens 41 B-Natriuretic Peptide 179.0 H Radiography Diagnostic Testing: Clinical Impression(s) from Imaging Studies Chest X-Ray 09/16/23 16:40 IMPRESSION: Cardiomegaly without radiographic evidence of acute cardiopulmonary disease. Electronically Signed: Vincent Underwood MD at 17:04 EDT Reading Location ID and State: [facility] / [place] Tel , Service support , Discharge Plan Triage Chief Complaint: Shortness of Breath ED Provider: Cesar Medina Dx/Rx/DC Orders Prescriptions: No Action famotidine 20 mg tablet 20 mg PO DAILY olanzapine 2.5 mg tablet 2.5 mg PO QHS Eliquis 2.5 mg tablet 2.5 mg PO BID aspirin 81 MG tablet,delayed release (DR/EC) 81 mg PO DAILY Patient Comments: multivitamin 1 EACH tablet 1 ea PO DAILY insulin regular human 100 UNIT/ML solution 12 unit SC BID Patient Comments: afternoon and night insulin NPH isoph U-100 human 100 unit/mL suspension 20 unit SC BID Rx Instructions: 20 UNITS IN THE MORNING 12 UNITS AT BEDTIME cholecalciferol (vitamin D3) 1,000 UNIT tablet 25 mcg PO DAILY sertraline 25 MG tablet 25 mg PO DAILY calcitriol 0.25 mcg capsule 0.5 mcg PO MOWEFR allopurinol 300 mg tablet 300 mg PO DAILY amlodipine 2.5 mg tablet 2.5 mg PO DAILY torsemide 20 mg tablet 20 mg PO DAILY Daily Fiber (psyllium-aspart) 3 gram Powder In Packet 1 packet PO BID Qty: 0 0RF potassium chloride 20 mEq tablet extended release 20 meq PO DAILY Qty: 1 0RF menthol-zinc oxide [Calmoseptine] 0.44-20.6 % ointment 1 applic topical BID nystatin [Nystop] 100,000 unit/gram powder 1 applic topical BID sennosides-docusate sodium [2-in-1 Laxative] 8.6-50 mg tablet 1 tab-cap PO BID levetiracetam [Keppra] 100 mg/mL solution 500 mg PO BID isosorbide mononitrate 30 mg tablet extended release 24 hr 30 mg PO DAILY Qty: 90 4RF Primary Care Provider: Rios Downey Referrals: Rios Downey DO [Primary Care Provider] -
[2023-09-16 18:55] LABS: Reflex Troponin-HS? (from REC) Y
[2023-09-16 19:35] LABS: Troponin-I HS 46 pg/mL (3.0-78.0)
[2023-09-16 21:05] LABS: Procalcitonin 0.08 ng/mL (0.00-0.09)
[2023-09-16] MEDS: APIXABAN 2.5 MG TABLET (WCH) PO (21:44)
[2023-09-16] MEDS: Miconazole Nitrate 43 GM Bottle 1 APPLIC TOPICAL (21:44)
[2023-09-16] MEDS: Senna/Docusate Sodium 1 Tablet PO (21:44)
[2023-09-16] MEDS: OLANZapine 2.5 MG Tablet PO (21:44)
[2023-09-16] MEDS: levETIRAcetam Oral Solution 500 MG/5 ML PO (21:44)
[2023-09-16] MEDS: Atorvastatin Calcium 40 MG Tablet PO (21:44)
[2023-09-16] MEDS: Psyllium 1 PACKET PO (21:44)
[2023-09-16] MEDS: Menthol/Lanolin/Calamine/Znox 113 GM Tube 1 APPLIC TOPICAL (21:44)
[2023-09-16 22:13] LABS: Bedside Glucose 110 mg/dL (74-106)
[2023-09-16 23:05] LABS: Troponin-I HS 45 pg/mL (3.0-78.0)
[2023-09-17] VITALS (12 sets, daily range): BP systolic 135–161; BP diastolic 65–77; PULSE 58–72; RESP 12–22; TEMP 35.8–36.5; O2SAT 93–98; BMI 43.2
[2023-09-17 06:50] LABS: Absolute Lymphocyte Count 1.07 X10^3/uL (0.83-4.51); Absolute Neutrophil Count 4.5 X10^3/uL (2.0-7.7); Basophil# 0.04 X10^3/uL; Basophil% 0.6 % (0-1); Eosinophil# 0.29 X10^3/uL; Eosinophils% 4.6 % (0-5); Hematocrit 31.6 % (40-54); Hemoglobin 9.5 g/dL (13.0-16.5); Lymphocyte # 1.07 X10^3/ul (0.83-4.51); Lymphocyte % 16.9 % (19-41); Mean Corp Hgb Conc 30.1 g/dL (32-36); Mean Corpuscular Hgb 30.5 pg (27.0-32.0); Mean Corpuscular Volume 101.6 fL (80-94); Mean Platelet Vol. 10.7 fl (6.2-12.0); Monocyte# 0.45 X10^3/uL; Monocyte% 7.1 % (0-10); NRBC Flagged by Analyzer 0 % (0-5); Neutrophil # 4.48 X10^3/uL (2.7-7.7); Neutrophil % 70.5 % (47-70); Platelet Count 127 K/mm3 (150-450); RBC Distribution Width CV 16.3 % (11.6-14.6); RBC Distribution Width SD 60.3 fl (35.1-43.9); Red Blood Count 3.11 M/mm3 (4.6-6.2); White Blood Count 6.4 K/mm3 (4.4-11.0)
[2023-09-17] MEDS: Budesonide Respules 0.5 MG/2 ML AMPUL.NEB. INHALATION ×2 (07:07→19:18)
[2023-09-17 07:23] LABS: ALB/GLOB Ratio 0.7 RATIO (0.9-2.4); AST(SGOT) 13 U/L (15-37); Alanine Aminotransfer ALT/SGPT 17 U/L (16-61); Albumin, Serum 2.8 g/dL (3.2-5.0); Alkaline Phosphatase 173 U/L (45-117); Anion Gap 5 (5-15); BUN 48 mg/dL (7-18); BUN/Creat Ratio 24.6 RATIO (10-20); Calcium,Total 8.8 mg/dL (8.5-10.1); Chloride 114 mmol/L (98-107); Creatinine, Serum 1.95 mg/dL (0.70-1.30); EST Glomerular Filtration Rate 35 mL/min (>60); Est Glom Filt Rate - Afr Amer 43 mL/min (>60); Estimated Creatinine Clearance 24.46 ml/min; Globulin 4.3 g/dL (2.2-4.2); Glucose 137 mg/dL (74-106); Potassium 4.6 mmol/L (3.5-5.1); Protein, Total 7.1 g/dL (6.4-8.2); Sodium Level 142 mmol/L (136-145)
[2023-09-17] MEDS: Furosemide 40 MG/4 ML Vial IV ×2 (08:03→18:47)
[2023-09-17] MEDS: levETIRAcetam Oral Solution 500 MG/5 ML PO ×2 (08:03→21:19)
[2023-09-17] MEDS: Psyllium 1 PACKET PO ×2 (08:03→21:20)
[2023-09-17] MEDS: Senna/Docusate Sodium 1 Tablet PO ×2 (08:04→21:17)
[2023-09-17] MEDS: Famotidine 20 MG Tablet PO (08:04)
[2023-09-17] MEDS: Aspirin E.C. 81 MG Tablet PO (08:04)
[2023-09-17] MEDS: Isosorbide Mononitrate 30 MG Tablet PO (08:04)
[2023-09-17] MEDS: Sertraline 50 MG Tablet 25 MG PO (08:05)
[2023-09-17] MEDS: Allopurinol 300 MG Tablet 150 MG PO (08:05)
[2023-09-17] MEDS: Calcitriol 0.25 MCG Capsule 0.5 MCG PO (08:05)
[2023-09-17] MEDS: Cholecalciferol (VIT D3) 25 MCG TABLET (1,000 UNITS) PO (08:06)
[2023-09-17] MEDS: Potassium Chloride Oral Tablet 20 MEQ PO (08:07)
[2023-09-17] MEDS: Doxepin Hydrochloride 10 MG Capsule PO (08:08)
[2023-09-17] MEDS: Multivitamins,Therapeutic Tablet 1 TABLET PO (08:09)
[2023-09-17] MEDS: Menthol/Lanolin/Calamine/Znox 113 GM Tube 1 APPLIC TOPICAL ×2 (08:12→21:14)
[2023-09-17] MEDS: Miconazole Nitrate 43 GM Bottle 1 APPLIC TOPICAL ×2 (08:12→21:13)
[2023-09-17] MEDS: APIXABAN 2.5 MG TABLET (WCH) PO ×2 (08:12→21:16)
[2023-09-17] MEDS: 0.9% Saline Lock 10 ML Syringe IV ×2 (08:25→18:49)
--- NOTE | 2023-09-17 09:08 | CASEMGMT ---
Addendum entered by Ana Glover 09/17/23 10:11: TC to pt dtmaisha Glass, she states pt oxygen is through [facility] and pt wears 4 L with exertion and 2 at rest and bled into pap. She states she does do dressing changes to pt when he has open areas of skin using a silver cream prescribed by PCP and performs daily. Granddtr also confirms plan is for pt to return home post hospitalization. Original Note: ALAN WALTER Assessment: Face to Face with pt for initial transition planning/care coordination assessment. ALAN WALTER introduced self and role at [facility], pt voices understanding and consents to assessment. Pt is A&O x4 and answers all questions appropriately at this time. Care providers, pharmacy, and demographics verified/updated. Pt asked this ALAN WALTER to call his granddtr to find out information about his oxygen. Admitting Dx: hypoxia, acute on chronic CHF exac PCP:Shayan Specialists:Bouchra, cardio; unsure of pulm [facility]erred [facility]acy: [facility] Insurance: [facility] Prescription Benefit: yes LNOK: ajay Bueno Living Arrangements: Pt lives with dtr in a single story home with 3 steps to enter. Pt reports he is I in ADL's and denies concerns at home. Pt just got home from SNF yesterday. Transportation: Pt does not drive, pt granddtr provides transportation. DME:w/c, shower chair, bipap, walker, pox, oxygen with portable tanks. Pt aware that portable tanks will need to be brought in upon dc. HHC/SNF: Denies HHCGray Pt states no concerns with going home at time of dc. He states he would like to return home and not go to SNF. Pt states he has a dressing to his left calf and his granddtr performs dressing changes. Pt states no further concerns/needs. CM to follow. Advised pt to ask CM if any further question/concerns/needs arise, voices understanding. Pt Goal: Home Plan: Home, follow therapy and for increased oxygen needs
[2023-09-17 10:39] LABS: Bedside Glucose 126 mg/dL (74-106)
[2023-09-17] MEDS: Insulin Lispro 100 UNIT/ML INSULN.PEN SC ×3 (12:10→21:15)
[2023-09-17 12:25] LABS: Bedside Glucose 173 mg/dL (74-106)
--- NOTE | 2023-09-17 15:27 | PCM.PN.HOSP ---
Reason for Visit Reason for Visit: Diagnoses Heart failure, unspecified (09/16/23) Subjective Subjective Patient seen at bedside this morning. Sitting comfortably in bedside chair, conversing normally, no acute distress. Patient had just worked with therapy when I entered the room, had been moved to the bedside chair from his bed and had some shortness of breath but otherwise did fairly well. Patient denies any overt volume overload in his legs this morning. States he generally does feel weaker than his baseline. He denies any fevers or chills. No other acute concerns morning. Objective Data Objective Data Vital Signs: Vital Signs Temp Pulse Resp BP Pulse Ox O2 Del Method O2 Flow Rate 97.6 F L 59 L 15 158/65 H 94 Nasal Cannula 4 09/17/23 13:44 09/17/23 13:44 09/17/23 13:44 09/17/23 13:44 09/17/23 13:44 09/17/23 13:44 09/17/23 13:44 FiO2 40 09/17/23 05:45 Oxygen Flow Rate (L/min) 4 Oxygen Delivery Method Nasal Cannula Weight: 117.6 kg Body Mass Index (BMI) 43.2 Intake & Output: Intake and Output for Last 24 Hours 09/15/23 09/16/23 09/17/23 23:59 23:59 23:59 Intake Total 240 / 240 120 / 120 Output Total 400 / 400 1000 / 1000 Balance -160 / -160 -880 / -880 Lab / Micro Data 09/17/23 06:40 09/17/23 06:40 Labs: Laboratory Results - last 24 hr 09/16/23 16:51: WBC 7.1, RBC 3.16 L, Hgb 10.1 L, Hct 32.2 L, MCV 101.9 H, MCH 32.0, MCHC 31.4 L, RDW Std Deviation 60.7 H, RDW Coeff of Yeny 16.4 H, Plt Count 130 L, MPV 11.2, Immature Gran % (Auto) 0.700, Neut % (Auto) 68.1, Lymph % (Auto) 19.0, [place] % (Auto) 8.1, Eos % (Auto) 3.7, Baso % (Auto) 0.4, Absolute Neuts (auto) 4.8, Absolute Lymphs (auto) 1.34, Nucleated RBC % 0, Sodium 141, Potassium 4.8, Chloride 112 H, Carbon Dioxide 22.0, Anion Gap 7, BUN 53 H, Creatinine 2.12 H, Estim Creat Clear Calc 23.37, Est GFR (MDRD) Af Amer 39 L, Est GFR (MDRD) Non-Af 32 L, BUN/Creatinine Ratio 25.0 H, Glucose 131 H, Calcium 8.8, Magnesium 2.0, Troponin I High Sens 41, B-Natriuretic Peptide 179.0 H 09/16/23 19:07: Troponin I High Sens 46 09/16/23 19:34: Procalcitonin 0.08 09/16/23 21:42: POC Glucose 110 H 09/16/23 22:40: Troponin I High Sens 45 09/17/23 06:40: WBC 6.4, RBC 3.11 L, Hgb 9.5 L, Hct 31.6 L, MCV 101.6 H, MCH 30.5, MCHC 30.1 L, RDW Std Deviation 60.3 H, RDW Coeff of Yeny 16.3 H, Plt Count 127 L, MPV 10.7, Immature Gran % (Auto) 0.300, Neut % (Auto) 70.5 H, Lymph % (Auto) 16.9 L, [place] % (Auto) 7.1, Eos % (Auto) 4.6, Baso % (Auto) 0.6, Absolute Neuts (auto) 4.5, Absolute Lymphs (auto) 1.07, Nucleated RBC % 0, Sodium 142, Potassium 4.6, Chloride 114 H, Carbon Dioxide 23.0, Anion Gap 5, BUN 48 H, Creatinine 1.95 H, Estim Creat Clear Calc 24.46, Est GFR (MDRD) Af Amer 43 L, Est GFR (MDRD) Non-Af 35 L, BUN/Creatinine Ratio 24.6 H, Glucose 137 H, Calcium 8.8, Total Bilirubin 0.70, AST 13 L, ALT 17, Alkaline Phosphatase 173 H, Total Protein 7.1, Albumin 2.8 L, Globulin 4.3 H, Albumin/Globulin Ratio 0.7 L 09/17/23 07:55: POC Glucose 126 H 09/17/23 12:03: POC Glucose 173 H Micro: Microbiology 09/16/23 20:00 Mucosa - Nasopharyngeal Coronavirus COVID-19 PCR - Final 09/16/23 20:00 Mucosa - Nasopharyngeal Respiratory Panel (PCR) - Final Radiography Diagnostic Testing: Radiology Impression Chest X-Ray 09/16/23 16:40 IMPRESSION: Cardiomegaly without radiographic evidence of acute cardiopulmonary disease. Electronically Signed: Vincent Underwood MD at 17:04 EDT Reading Location ID and State: [facility] / [place] Tel , Service support , Physical Exam Const alert and oriented x3 Constitutional Narrative: Pleasant elderly male, morbidly obese, sitting comfortably in bedside chair, conversing normally, no acute distress. General Appearance: cooperative and comfortable HEENT normocephalic, head/scalp atraumatic, hearing grossly normal bilaterally, nasal mucous membranes and turbinates normal and moist oral mucous membranes Eyes PERRL, EOMs intact bilaterally and conjunctivae normal Neck full ROM, no lymphadenopathy and supple Lymph Lymphatic: no lymphadenopathy noted Chest inspection of chest normal Resp Resp Narrative: Breathing comfortably on 6 L nasal cannula, no increased work of breathing noted. Decreased breath sounds bilaterally throughout, no rhonchi or wheezing noted. Cardio regular rate, regular rhythm, no murmurs and peripheral pulses 2+ throughout GI normal to inspection, nondistended, normoactive bowel sounds, soft to palpation, non-tender and non-distended Back/Spine normal ROM Extremity normal to inspection and full ROM Extremity Narrative: +2-3 edema noted. Skin no rashes or lesions noted Psych mental status grossly normal Assessment & Plan Assessment/Plan (1) Debility: PLAN: Plan Patient is an 83-year-old male with history of COPD with chronic hypoxic respiratory failure on 4 L nasal cannula, combined heart failure, CKD stage IV, morbid obesity, CAD s/p CABG x4, type 2 diabetes, and recent admission for CVA rule out who presented to [facility] ED on 09/16/2023 with worsening shortness of breath. 1. Acute on chronic hypoxic respiratory failure, mildly decompensated combined heart failure Unclear etiology, may be secondary to under diuresis, no other clear inciting factor. Patient was noted to be hypoxic down to the high 70s with increased work of breathing on exertion, which prompted coming to the ED. Patient notably had just been discharged from SNF on morning of 09/16. Chest x-ray in ED showed cardiomegaly without radiographic evidence of acute cardiopulmonary disease. Most recent echo on 06/29/2023 with normal LV size, EF 40%, PASP 44 mmHg, otherwise unremarkable. BNP 179 on admit, appears to be around his baseline. ? Continue IV Lasix 40 mg twice daily for now, can likely transition to p.o. Lasix tomorrow. Wean oxygen as able. PT/OT/case management following as below. Continue home inhalers as noted below. 2. Debility, concern for underlying dementia Secondary to age and significant comorbidities. Notably was just discharged from SNF on morning of 09/16, had been there since previous discharge on 08/22. ? PT/OT/case management following. Will likely need significant on discharge. Chronic medical conditions: ? Morbid obesity: BMI 43. Encouraged lifestyle modifications. ? Seizure disorder: Continue home Keppra. ? CKD stage IV: Admission BUN/creatinine of 53/2.12, at baseline. Monitor daily BMP. ? Paroxysmal A-fib: Continue home Eliquis. ? COPD with chronic hypoxic respiratory failure: Continue home inhalers. ? CAD s/p CABG: Continue home aspirin, statin. ? Type 2 diabetes: Holding home oral regimen, sliding scale insulin while inpatient. ? Anxiety/depression: Continue home sertraline and olanzapine. DVT prophylaxis: Eliquis CODE STATUS: DNR CCA, DO NOT INTUBATE Expected disposition: SNF, 2 to 3 days Total clinical time spent by myself addressing the patient's medical issues, reviewing all the data, and collaborating with patient's care team: 35 minutes. Charges/Coding Visit Charges Inpatient E&M: 64682 Subs Hosp L2
[2023-09-17 19:03] LABS: Bedside Glucose 159 mg/dL (74-106)
[2023-09-17] MEDS: Albuterol 2.5 MG/3 ML VIAL.NEB. INHALATION (19:18)
[2023-09-17] MEDS: Atorvastatin Calcium 40 MG Tablet PO (21:17)
[2023-09-17] MEDS: OLANZapine 2.5 MG Tablet PO (21:18)
[2023-09-17 22:14] LABS: Bedside Glucose 188 mg/dL (74-106)
[2023-09-18] VITALS (12 sets, daily range): BP systolic 108–161; BP diastolic 53–83; PULSE 51–76; RESP 12–20; TEMP 36.4–36.7; O2SAT 92–98; BMI 42.6
--- NOTE | 2023-09-18 03:34 | CPS ---
Patient wanted to try his home Bipap with 4L bled in, RN called LASTING MACHINE OPERATOR of patients oxygen saturations low, patient placed back on V60.
[2023-09-18] MEDS: Budesonide Respules 0.5 MG/2 ML AMPUL.NEB. INHALATION ×2 (06:58→19:20)
[2023-09-18 07:39] LABS: Anion Gap 5 (5-15); BUN 51 mg/dL (7-18); BUN/Creat Ratio 23.5 RATIO (10-20); Calcium,Total 8.9 mg/dL (8.5-10.1); Chloride 111 mmol/L (98-107); Creatinine, Serum 2.17 mg/dL (0.70-1.30); EST Glomerular Filtration Rate 31 mL/min (>60); Est Glom Filt Rate - Afr Amer 38 mL/min (>60); Estimated Creatinine Clearance 22.83 ml/min; Glucose 110 mg/dL (74-106); Sodium Level 141 mmol/L (136-145)
[2023-09-18] MEDS: Isosorbide Mononitrate 30 MG Tablet PO (07:52)
[2023-09-18] MEDS: Sertraline 50 MG Tablet 25 MG PO (07:52)
[2023-09-18] MEDS: Cholecalciferol (VIT D3) 25 MCG TABLET (1,000 UNITS) PO (07:52)
[2023-09-18] MEDS: Multivitamins,Therapeutic Tablet 1 TABLET PO (07:52)
[2023-09-18] MEDS: Aspirin E.C. 81 MG Tablet PO (07:53)
[2023-09-18] MEDS: APIXABAN 2.5 MG TABLET (WCH) PO ×2 (07:53→20:55)
[2023-09-18] MEDS: Potassium Chloride Oral Tablet 20 MEQ PO (07:53)
[2023-09-18] MEDS: Famotidine 20 MG Tablet PO (07:53)
[2023-09-18] MEDS: Psyllium 1 PACKET PO (07:53)
[2023-09-18] MEDS: Doxepin Hydrochloride 10 MG Capsule PO (07:53)
[2023-09-18] MEDS: Senna/Docusate Sodium 1 Tablet PO ×2 (07:53→20:56)
[2023-09-18] MEDS: Menthol/Lanolin/Calamine/Znox 113 GM Tube 1 APPLIC TOPICAL (07:54)
[2023-09-18] MEDS: Allopurinol 300 MG Tablet 150 MG PO (07:54)
[2023-09-18] MEDS: Miconazole Nitrate 43 GM Bottle 1 APPLIC TOPICAL ×2 (07:54→20:55)
[2023-09-18] MEDS: levETIRAcetam Oral Solution 500 MG/5 ML PO ×2 (07:55→20:56)
[2023-09-18] MEDS: Furosemide 40 MG/4 ML Vial IV (07:55)
[2023-09-18] MEDS: amLODIPine 2.5 MG Tablet PO (08:18)
[2023-09-18 08:27] LABS: Bedside Glucose 115 mg/dL (74-106)
[2023-09-18] MEDS: Insulin Lispro 100 UNIT/ML INSULN.PEN SC ×3 (12:10→20:56)
[2023-09-18 12:30] LABS: Bedside Glucose 171 mg/dL (74-106)
[2023-09-18] MEDS: QUEtiapine 25 MG Tablet PO ×2 (13:42→20:55)
--- NOTE | 2023-09-18 14:00 | PCM.PN.HOSP ---
Reason for Visit Reason for Visit: Diagnoses Heart failure, unspecified (09/16/23) Other malaise (09/16/23) Subjective Subjective Patient seen at bedside this morning. Sitting in bedside chair, no acute distress. Patient does appear very fatigued this morning and somewhat delirious, giving very short answers to questions. Satting well on 5 L nasal cannula, no increased work of breathing noted. Patient notably did wear his BiPAP overnight. No other concerns this morning. Objective Data Objective Data Vital Signs: Vital Signs Temp Pulse Resp BP Pulse Ox O2 Del Method O2 Flow Rate 97.5 F L 56 L 16 147/81 H 96 Nasal Cannula 5 09/18/23 13:48 09/18/23 13:48 09/18/23 13:48 09/18/23 13:48 09/18/23 13:48 09/18/23 13:48 09/18/23 13:48 FiO2 40 09/18/23 05:49 Oxygen Flow Rate (L/min) 5 Oxygen Delivery Method Nasal Cannula Weight: 116.2 kg Body Mass Index (BMI) 42.6 Intake & Output: Intake and Output for Last 24 Hours 09/16/23 09/17/23 09/18/23 23:59 23:59 23:59 Intake Total 240 / 240 120 / 240 120 / 120 Output Total 400 / 400 1800 / 2500 900 / 900 Balance -160 / -160 -1680 / -2260 -780 / -780 Lab / Micro Data 09/17/23 06:40 09/18/23 07:15 Labs: Laboratory Results - last 24 hr 09/17/23 17:10: POC Glucose 159 H 09/17/23 21:10: POC Glucose 188 H 09/18/23 07:15: Sodium 141, Potassium 5.0, Chloride 111 H, Carbon Dioxide 25.0, Anion Gap 5, BUN 51 H, Creatinine 2.17 H, Estim Creat Clear Calc 22.83, Est GFR (MDRD) Af Amer 38 L, Est GFR (MDRD) Non-Af 31 L, BUN/Creatinine Ratio 23.5 H, Glucose 110 H, Calcium 8.9 09/18/23 07:42: POC Glucose 115 H 09/18/23 12:09: POC Glucose 171 H Micro: Microbiology 09/16/23 20:00 Mucosa - Nasopharyngeal Coronavirus COVID-19 PCR - Final 09/16/23 20:00 Mucosa - Nasopharyngeal Respiratory Panel (PCR) - Final Physical Exam Const alert Constitutional Narrative: Elderly male, morbidly obese, sitting comfortably in bedside chair but very fatigued this morning and somewhat delirious, not answering questions appropriately. HEENT normocephalic, head/scalp atraumatic, hearing grossly normal bilaterally, nasal mucous membranes and turbinates normal and moist oral mucous membranes Eyes PERRL, EOMs intact bilaterally and conjunctivae normal Neck full ROM, no lymphadenopathy and supple Lymph Lymphatic: no lymphadenopathy noted Chest inspection of chest normal Resp Resp Narrative: Breathing comfortably on 5 L nasal cannula, no increased work of breathing noted. Decreased breath sounds bilaterally throughout, no rhonchi or wheezing noted. Cardio regular rate, regular rhythm, no murmurs and peripheral pulses 2+ throughout GI normal to inspection, nondistended, normoactive bowel sounds, soft to palpation, non-tender and non-distended Back/Spine normal ROM Extremity normal to inspection and full ROM Extremity Narrative: +1-2 edema noted. Skin no rashes or lesions noted Psych mental status grossly normal Assessment & Plan Assessment/Plan (1) Debility: PLAN: Plan Patient is an 83-year-old male with history of COPD with chronic hypoxic respiratory failure on 4 L nasal cannula, combined heart failure, CKD stage IV, morbid obesity, CAD s/p CABG x4, type 2 diabetes, and recent admission for CVA rule out who presented to [facility] ED on 09/16/2023 with worsening shortness of breath. 1. Acute on chronic hypoxic respiratory failure, mildly decompensated combined heart failure Unclear etiology, may be secondary to under diuresis, no other clear inciting factor. Patient was noted to be hypoxic down to the high 70s with increased work of breathing on exertion, which prompted coming to the ED. Patient notably had just been discharged from SNF on morning of 09/16. Chest x-ray in ED showed cardiomegaly without radiographic evidence of acute cardiopulmonary disease. Most recent echo on 06/29/2023 with normal LV size, EF 40%, PASP 44 mmHg, otherwise unremarkable. BNP 179 on admit, appears to be around his baseline. ? Started to see contraction on BMP on 09/18, de-escalated to p.o. Lasix 40 mg daily (home dose). Wean supplemental oxygen as able. Continue home inhalers as noted below. PT/OT/case management following. 2. Debility Secondary to age and significant comorbidities. Notably was just discharged from SNF on morning of 09/16, had been there since previous discharge on 08/22. ? PT/OT/case management following. Discussed at length with patient's granddaughter outside room on 09/18. Patient lives with granddaughter, was fairly functional at baseline prior to previous hospitalization from 08/18 to 08/22. Granddaughter then states that patient received poor care at rehab facility. She would like for patient to go home with home health care on discharge but recognizes that patient is weaker than his baseline. She states that patient has home health care set up already, and actually has palliative care coming in to see the patient in the home this week. I discussed my concern with her that the patient has several significant comorbidities and I am concerned about his long-term prognosis, foresee patient needing extensive help at baseline going forward. We will follow-up PT/OT recommendations tomorrow and discuss further plans with case management moving forward. 3. Delirium, concern for underlying dementia Suspect hospital delirium. Patient alert and oriented x3 on 09/17, then delirious on morning of 09/18 and not answering questions appropriately. Wore BiPAP overnight on 09/17, no concern for hypercarbia. No other significant lab abnormalities. Patient's granddaughter states that patient experienced this type of delirium on previous hospitalization as well. ? We will start Seroquel 25 mg twice daily. Can give IV Haldol as needed if patient has significant hyperactive delirium. Chronic medical conditions: ? Morbid obesity: BMI 43. Encouraged lifestyle modifications. ? Seizure disorder: Continue home Keppra. ? CKD stage IV: Admission BUN/creatinine of 53/2.12, at baseline. Monitor daily BMP. ? Paroxysmal A-fib: Continue home Eliquis. ? COPD with chronic hypoxic respiratory failure: Continue home inhalers. ? CAD s/p CABG: Continue home aspirin, statin. ? Type 2 diabetes: Holding home oral regimen, sliding scale insulin while inpatient. ? Anxiety/depression: Continue home sertraline and olanzapine. DVT prophylaxis: Eliquis CODE STATUS: DNR CCA, DO NOT INTUBATE Expected disposition: Home with home health care versus SNF, TBD Total clinical time spent by myself addressing the patient's medical issues, reviewing all the data, and collaborating with patient's care team: 35 minutes. Charges/Coding Visit Charges Inpatient E&M: 69922 Subs Hosp L2
[2023-09-18 20:34] LABS: Bedside Glucose 158 mg/dL (74-106)
[2023-09-18] MEDS: Atorvastatin Calcium 40 MG Tablet PO (20:55)
[2023-09-18] MEDS: OLANZapine 2.5 MG Tablet PO (20:56)
[2023-09-18 22:17] LABS: Bedside Glucose 188 mg/dL (74-106)
[2023-09-19] VITALS (12 sets, daily range): BP systolic 107–128; BP diastolic 41–81; PULSE 53–69; RESP 12–21; TEMP 36.6; O2SAT 4–98; BMI 42.5
[2023-09-19 06:06] LABS: Anion Gap 4 (5-15); BUN 61 mg/dL (7-18); BUN/Creat Ratio 25.4 RATIO (10-20); Chloride 110 mmol/L (98-107); EST Glomerular Filtration Rate 28 mL/min (>60); Est Glom Filt Rate - Afr Amer 34 mL/min (>60); Estimated Creatinine Clearance 20.64 ml/min; Glucose 127 mg/dL (74-106); Potassium 5.2 mmol/L (3.5-5.1); Sodium Level 138 mmol/L (136-145)
[2023-09-19] MEDS: Budesonide Respules 0.5 MG/2 ML AMPUL.NEB. INHALATION ×2 (06:46→20:12)
[2023-09-19] MEDS: Potassium Chloride Oral Tablet 20 MEQ PO (08:52)
[2023-09-19] MEDS: APIXABAN 2.5 MG TABLET (WCH) PO ×2 (08:53→21:52)
[2023-09-19] MEDS: Doxepin Hydrochloride 10 MG Capsule PO (08:53)
[2023-09-19] MEDS: Furosemide 40 MG Tablet PO ×2 (08:53→08:57)
[2023-09-19] MEDS: Famotidine 20 MG Tablet PO (08:53)
[2023-09-19] MEDS: Cholecalciferol (VIT D3) 25 MCG TABLET (1,000 UNITS) PO (08:53)
[2023-09-19] MEDS: Aspirin E.C. 81 MG Tablet PO (08:53)
[2023-09-19] MEDS: Sertraline 50 MG Tablet 25 MG PO (08:53)
[2023-09-19] MEDS: Multivitamins,Therapeutic Tablet 1 TABLET PO (08:54)
[2023-09-19] MEDS: Isosorbide Mononitrate 30 MG Tablet PO (08:54)
[2023-09-19] MEDS: Allopurinol 300 MG Tablet 150 MG PO (08:54)
[2023-09-19] MEDS: Psyllium 1 PACKET PO (08:55)
[2023-09-19] MEDS: levETIRAcetam Oral Solution 500 MG/5 ML PO ×2 (08:55→21:51)
[2023-09-19] MEDS: Menthol/Lanolin/Calamine/Znox 113 GM Tube 1 APPLIC TOPICAL ×2 (08:55→21:50)
[2023-09-19] MEDS: Miconazole Nitrate 43 GM Bottle 1 APPLIC TOPICAL ×2 (08:55→21:50)
[2023-09-19] MEDS: Senna/Docusate Sodium 1 Tablet PO ×2 (08:55→21:53)
[2023-09-19] MEDS: QUEtiapine 25 MG Tablet PO ×2 (08:57→21:53)
[2023-09-19] MEDS: amLODIPine 2.5 MG Tablet PO (08:59)
[2023-09-19 09:33] LABS: Bedside Glucose 102 mg/dL (74-106)
[2023-09-19] MEDS: Insulin Lispro 100 UNIT/ML INSULN.PEN SC (11:44)
--- NOTE | 2023-09-19 13:20 | PN.HOSP_ITS ---
Subjective Subjective Doing well, feels a bit better. Oxygen requirement is still elevated as he is supposed to be 2 L at rest and 4 L with ambulation he is currently maintaining 5 L both at rest and with ambulation Objective Data Objective Data Vital Signs: Vital Signs Temp Pulse Resp BP Pulse Ox O2 Del Method O2 Flow Rate 97.9 F 53 L 16 115/55 L 97 Nasal Cannula 4 09/19/23 08:44 09/19/23 08:44 09/19/23 08:44 09/19/23 08:44 09/19/23 11:06 09/19/23 10:00 09/19/23 11:06 FiO2 30 09/19/23 03:25 Oxygen Flow Rate (L/min) 4 Oxygen Delivery Method Nasal Cannula Weight: 255 lb 15.307 oz Body Mass Index (BMI) 42.5 Intake & Output: Intake and Output for Last 24 Hours 09/18/23 09/19/23 09/20/23 03:59 03:59 03:59 Intake Total 240 / 240 100 / 100 240 / 240 Output Total 2500 / 2500 1600 / 1600 550 / 550 Balance -2260 / -2260 -1500 / -1500 -310 / -310 Lab / Micro Data 09/17/23 06:40 09/19/23 04:55 Labs: Laboratory Results - last 24 hr 09/18/23 16:06: POC Glucose 158 H 09/18/23 20:51: POC Glucose 188 H 09/19/23 04:55: Sodium 138, Potassium 5.2 H, Chloride 110 H, Carbon Dioxide 24.0, Anion Gap 4 L, BUN 61 H, Creatinine 2.40 H, Estim Creat Clear Calc 20.64, Est GFR (MDRD) Af Amer 34 L, Est GFR (MDRD) Non-Af 28 L, BUN/Creatinine Ratio 25.4 H, Glucose 127 H, Calcium 9.0 09/19/23 08:49: POC Glucose 102 Micro: Microbiology 09/16/23 20:00 Mucosa - Nasopharyngeal Coronavirus COVID-19 PCR - Final 09/16/23 20:00 Mucosa - Nasopharyngeal Respiratory Panel (PCR) - Final Physical Exam Narrative General: Alert, Oriented x3, Cooperative, No apparent distress HEENT: Atraumatic, PERRLA, EOMI, Normocephalic Oral: Moist Mucosa Neck: Supple, No JVD Lungs: Diminished, Normal air movement, No rhonchi, No wheeze, No rales Cardiovascular: Regular rate, Regular Rhythm, Normal S1, Normal S2, No murmurs Abdomen: Soft, Non Tender, Non-Distended, No Hepato-splenomegaly Extremities: Edema, Capillary Refill Less than 3 Seconds Skin: No rashes, No breakdown Musculoskeletal: No Tenderness to Palpation of Joints or Extremities Neurological: Cranial nerves II-XII grossly intact, Motor Exam 5/5 strength throughout, Sensory exam intact to light touch and pain Psych/Mental Status: Normal Affect, Appropriate Assessment & Plan Assessment/Plan (1) Debility: PLAN: Plan 1. Acute on chronic hypoxic respiratory failure, mildly decompensated combined heart failure Unclear etiology, may be secondary to under diuresis, no other clear inciting factor. Patient was noted to be hypoxic down to the high 70s with increased work of breathing on exertion, which prompted coming to the ED. Patient notably had just been discharged from SNF on morning of 09/16. Chest x-ray in ED showed cardiomegaly without radiographic evidence of acute cardiopulmonary disease. Most recent echo on 06/29/2023 with normal LV size, EF 40%, PASP 44 mmHg, otherwise unremarkable. BNP 179 on admit, appears to be around his baseline. ? Started to see contraction on BMP on 09/18, de-escalated to p.o. Lasix 40 mg daily (home dose). Wean supplemental oxygen as able. Continue home inhalers as noted below. PT/OT/case management following. ? Desaturated with ambulation today down to 86% and had to be turned up to 5 to 6 L nasal cannula. 2. Debility Secondary to age and significant comorbidities. Notably was just discharged from SNF on morning of 09/16, had been there since previous discharge on 08/22. ? PT/OT/case management following. Discussed at length with patient's g jamesradhamaicol outside room on 09/18. Patient lives with granddaughter, was fairly functional at baseline prior to previous hospitalization from 08/18 to 08/22. Granddaughter then states that patient received poor care at rehab facility. She would like for patient to go home with home health care on discharge but recognizes that patient is weaker than his baseline. She states that patient has home health care set up already, and actually has palliative care coming in to see the patient in the home this week. I discussed my concern with her that the patient has several significant comorbidities and I am concerned about his long-term prognosis, foresee patient needing extensive help at baseline going forward. We will follow-up PT/OT recommendations tomorrow and discuss further plans with case management moving forward. 3. Delirium, concern for underlying dementia Suspect hospital delirium. Patient alert and oriented x3 on 09/17, then delirious on morning of 09/18 and not answering questions appropriately. Wore BiPAP overnight on 09/17, no concern for hypercarbia. No other significant lab abnormalities. Patient's granddaughter states that patient experienced this type of delirium on previous hospitalization as well. ? We will start Seroquel 25 mg twice daily. Can give IV Haldol as needed if patient has significant hyperactive delirium. ? Appears to have resolved and granddaughter seeking to remove guardianship Chronic medical conditions: ? Morbid obesity: BMI 43. Encouraged lifestyle modifications. ? Seizure disorder: Continue home Keppra. ? CKD stage IV: Admission BUN/creatinine of 53/2.12, at baseline. Monitor daily BMP. Creatinine today is 2.4 ? Paroxysmal A-fib: Continue home Eliquis. ? COPD with chronic hypoxic respiratory failure: Continue home inhalers. ? CAD s/p CABG: Continue home aspirin, statin. ? Type 2 diabetes: Holding home oral regimen, sliding scale insulin while inpatient. ? Anxiety/depression: Continue home sertraline and olanzapine. DVT: Eliquis Charges/Coding Visit Charges Inpatient E&M: 49896 Subs Hosp L2
[2023-09-19 16:21] LABS: Bedside Glucose 150 mg/dL (74-106)
[2023-09-19 16:23] LABS: Bedside Glucose 131 mg/dL (74-106)
[2023-09-19] MEDS: Atorvastatin Calcium 40 MG Tablet PO (21:52)
[2023-09-19] MEDS: OLANZapine 2.5 MG Tablet PO (21:54)
[2023-09-19 22:26] LABS: Bedside Glucose 120 mg/dL (74-106)
[2023-09-20] VITALS (12 sets, daily range): BP systolic 109–136; BP diastolic 48–61; PULSE 55–95; RESP 12–20; TEMP 36.3–37; O2SAT 84–100; BMI 42.1
--- NOTE | 2023-09-20 00:01 | CPS ---
At 09/19 spo2 was 89 on bipap on 30 fio2. Increased to 40% spo2 now 93%
[2023-09-20 06:32] LABS: Anion Gap 5 (5-15); BUN 66 mg/dL (7-18); BUN/Creat Ratio 25.3 RATIO (10-20); Calcium,Total 8.9 mg/dL (8.5-10.1); Chloride 110 mmol/L (98-107); Creatinine, Serum 2.61 mg/dL (0.70-1.30); EST Glomerular Filtration Rate 25 mL/min (>60); Est Glom Filt Rate - Afr Amer 30 mL/min (>60); Estimated Creatinine Clearance 18.98 ml/min; Glucose 112 mg/dL (74-106); Potassium 4.9 mmol/L (3.5-5.1); Sodium Level 139 mmol/L (136-145)
[2023-09-20] MEDS: Budesonide Respules 0.5 MG/2 ML AMPUL.NEB. INHALATION ×2 (07:11→19:00)
[2023-09-20] MEDS: Cholecalciferol (VIT D3) 25 MCG TABLET (1,000 UNITS) PO (08:38)
[2023-09-20] MEDS: levETIRAcetam Oral Solution 500 MG/5 ML PO ×2 (08:38→21:10)
[2023-09-20] MEDS: Furosemide 40 MG Tablet PO (08:38)
[2023-09-20] MEDS: Isosorbide Mononitrate 30 MG Tablet PO (08:39)
[2023-09-20] MEDS: Allopurinol 300 MG Tablet 150 MG PO (08:39)
[2023-09-20] MEDS: Multivitamins,Therapeutic Tablet 1 TABLET PO (08:39)
[2023-09-20] MEDS: Sertraline 50 MG Tablet 25 MG PO (08:39)
[2023-09-20] MEDS: Aspirin E.C. 81 MG Tablet PO (08:39)
[2023-09-20] MEDS: amLODIPine 2.5 MG Tablet PO (08:40)
[2023-09-20] MEDS: QUEtiapine 25 MG Tablet PO (08:40)
[2023-09-20] MEDS: Doxepin Hydrochloride 10 MG Capsule PO (08:40)
[2023-09-20] MEDS: APIXABAN 2.5 MG TABLET (WCH) PO ×2 (08:40→21:12)
[2023-09-20] MEDS: Famotidine 20 MG Tablet PO (08:40)
[2023-09-20] MEDS: Psyllium 1 PACKET PO ×2 (08:40→21:11)
[2023-09-20] MEDS: Senna/Docusate Sodium 1 Tablet PO (08:40)
[2023-09-20] MEDS: Miconazole Nitrate 43 GM Bottle 1 APPLIC TOPICAL ×2 (08:42→21:09)
[2023-09-20] MEDS: Menthol/Lanolin/Calamine/Znox 113 GM Tube 1 APPLIC TOPICAL ×2 (08:42→21:09)
[2023-09-20] MEDS: Potassium Chloride Oral Tablet 20 MEQ PO (08:42)
--- NOTE | 2023-09-20 09:25 | CASEMGMT ---
ALAN WALTER updated that patient will be discharging today. RN CM in to discuss discharge with patient. Patient wishes to discharge and declined HHC stating his granddaughter is all the care he needs. With patient's permission, ALAN WALTER called granddaughter Maria Luisa. Per Maria Luisa Gray had setup C with [facility] and would like services resumed. Granddaughter denied further needs. ALAN WALTER called [facility] and confirmed that referral was made but they were not able to open patient. [facility], PT/OT to eval and treat. C order received and discharge planning asssistant to send referral. CM will monitor for increased oxygen demands.
[2023-09-20 09:41] LABS: Bedside Glucose 95 mg/dL (74-106)
--- NOTE | 2023-09-20 11:42 | CASEMGMT ---
Discharge Planning Referral sent to [facility] via [facility]. Adrianne Valenzuela, Discharge Planning Asst.
--- NOTE | 2023-09-20 11:53 | NURSING ---
Did ambulating oxygen trial with patient. At baseline he wears 2L NC while resting and 4L with ambulation. Today he required 3LNC at baseline to maintain a sat above 89 and 7LNC with ambulation to maintain a sat of 89. MD jones.
[2023-09-20] MEDS: Insulin Lispro 100 UNIT/ML INSULN.PEN SC ×3 (12:10→21:07)
[2023-09-20 12:28] LABS: Bedside Glucose 179 mg/dL (74-106)
--- NOTE | 2023-09-20 13:35 | CASEMGMT ---
Discharge Planning Patient has been accepted by [facility]. RN CM updated. Adrianne Valenzuela, Discharge Planning Asst.
--- NOTE | 2023-09-20 13:40 | PN.HOSP_ITS ---
Subjective Subjective Doing well, no issues overnight. Wearing his BiPAP consistently while sleeping Objective Data Objective Data Vital Signs: Vital Signs Temp Pulse Resp BP Pulse Ox O2 Del Method O2 Flow Rate 98.6 F 63 15 124/52 H 92 Nasal Cannula 3 09/20/23 08:32 09/20/23 08:32 09/20/23 08:32 09/20/23 08:32 09/20/23 09:56 09/20/23 13:22 09/20/23 13:22 FiO2 40 09/20/23 03:00 Oxygen Flow Rate (L/min) [ 6 AMBULATING with Oxygen #3] Oxygen Flow Rate (L/min) [ 5 AMBULATING with Oxygen #2] Oxygen Flow Rate (L/min) [ 4 AMBULATING with Oxygen #1] Oxygen Flow Rate (L/min) [At 2 REST with Oxygen] Oxygen Flow Rate (L/min) 3 Oxygen Delivery Method Nasal Cannula Weight: 253 lb 4.978 oz Body Mass Index (BMI) 42.1 Intake & Output: Intake and Output for Last 24 Hours 09/19/23 09/20/23 09/21/23 03:59 03:59 03:59 Intake Total 100 / 100 240 / 240 Output Total 1600 / 1600 1050 / 1050 500 / 500 Balance -1500 / -1500 -810 / -810 -500 / -500 Lab / Micro Data 09/17/23 06:40 09/20/23 04:51 Labs: Laboratory Results - last 24 hr 09/19/23 11:42: POC Glucose 150 H 09/19/23 16:06: POC Glucose 131 H 09/19/23 21:59: POC Glucose 120 H 09/20/23 04:51: Sodium 139, Potassium 4.9, Chloride 110 H, Carbon Dioxide 24.0, Anion Gap 5, BUN 66 H, Creatinine 2.61 H, Estim Creat Clear Calc 18.98, Est GFR (MDRD) Af Amer 30 L, Est GFR (MDRD) Non-Af 25 L, BUN/Creatinine Ratio 25.3 H, Glucose 112 H, Calcium 8.9 09/20/23 08:35: POC Glucose 95 09/20/23 12:06: POC Glucose 179 H Micro: Microbiology 09/16/23 20:00 Mucosa - Nasopharyngeal Coronavirus COVID-19 PCR - Final 10/20/23 20:00 Mucosa - Nasopharyngeal Respiratory Panel (PCR) - Final Physical Exam Narrative General: Alert, Oriented x3, Cooperative, No apparent distress HEENT: Atraumatic, PERRLA, EOMI, Normocephalic Oral: Moist Mucosa Neck: Supple, No JVD Lungs: Diminished, Normal air movement, No rhonchi, No wheeze, No rales Cardiovascular: Regular rate, Regular Rhythm, Normal S1, Normal S2, No murmurs Abdomen: Soft, Non Tender, Non-Distended, No Hepato-splenomegaly Extremities: Edema, Capillary Refill Less than 3 Seconds Skin: No rashes, No breakdown Musculoskeletal: No Tenderness to Palpation of Joints or Extremities Neurological: Cranial nerves II-XII grossly intact, Motor Exam 5/5 strength throughout, Sensory exam intact to light touch and pain Psych/Mental Status: Normal Affect, Appropriate Assessment & Plan Assessment/Plan (1) Debility: PLAN: Plan 1. Acute on chronic hypoxic respiratory failure, mildly decompensated combined heart failure Unclear etiology, may be secondary to under diuresis, no other clear inciting factor. Patient was noted to be hypoxic down to the high 70s with increased work of breathing on exertion, which prompted coming to the ED. Patient notably had just been discharged from SNF on morning of 09/16. Chest x-ray in ED showed cardiomegaly without radiographic evidence of acute cardiopulmonary disease. Most recent echo on 06/29/2023 with normal LV size, EF 40%, PASP 44 mmHg, otherw ise unremarkable. BNP 179 on admit, appears to be around his baseline. ? Started to see contraction on BMP on 09/18, de-escalated to p.o. Lasix 40 mg daily (home dose). Wean supplemental oxygen as able. Continue home inhalers as noted below. PT/OT/case management following. ?Ambulatory pulse ox today demonstrated need for 7 L with 3 L at rest. Will consult pulmonology for assistance unclear whether there is another process or he just needs to be more aggressively diuresed however his renal function is worsening 2. Debility Secondary to age and significant comorbidities. Notably was just discharged from SNF on morning of 09/16, had been there since previous discharge on 08/22. ? PT/OT/case management following. Discussed at length with patient's granddaughter outside room on 09/18. Patient lives with granddaughter, was fairly functional at baseline prior to previous hospitalization from 08/18 to 08/22. Granddaughter then states that patient received poor care at rehab facility. She would like for patient to go home with home health care on discharge but recognizes that patient is weaker than his baseline. She states that patient has home health care set up already, and actually has palliative care coming in to see the patient in the home this week. ? There is no interest in SNF 3. Delirium, concern for underlying dementia Suspect hospital delirium. Patient alert and oriented x3 on 09/17, then delirious on morning of 09/18 and not answering questions appropriately. Wore BiPAP overnight on 09/17, no concern for hypercarbia. No other significant lab abnormalities. Patient's granddaughter states that patient experienced this type of delirium on previous hospitalization as well. ?He is on olanzapine, will discontinue Seroquel. Can give IV Haldol as needed i f patient has significant hyperactive delirium. ? Appears to have resolved and granddaughter seeking to remove guardianship Chronic medical conditions: ? Morbid obesity: BMI 43. Encouraged lifestyle modifications. ? Seizure disorder: Continue home Keppra. ? CKD stage IV: Admission BUN/creatinine of 53/2.12, at baseline. Monitor daily BMP. ? Paroxysmal A-fib: Continue home Eliquis. ? COPD with chronic hypoxic respiratory failure: Continue home inhalers. ? CAD s/p CABG: Continue home aspirin, statin. ? Type 2 diabetes: Holding home oral regimen, sliding scale insulin while inpatient. ? Anxiety/depression: Continue home sertraline and olanzapine. DVT: Eliquis Charges/Coding Visit Charges Inpatient E&M: 07170 Subs Hosp L2
--- NOTE | 2023-09-20 15:12 | CON.PCM.CC_ITS ---
Assessment & Plan Assessment/Plan (1) Acute exacerbation of CHF (congestive heart failure): QUALIFIERS: Heart failure type: combined systolic and diastolic Qualified Code(s): I50.43 - Acute on chronic combined systolic (congestive) and diastolic (congestive) heart failure (2) CKD (chronic kidney disease) stage 4, GFR 15-29 ml/min: (3) Chronic respiratory failure: QUALIFIERS: Respiratory failure complication: hypoxia Qualified Code(s): J96.11 - Chronic respiratory failure with hypoxia (4) Aortic stenosis: QUALIFIERS: Cardiac valve disease etiology: nonrheumatic Qualified Code(s): I35.0 - Nonrheumatic aortic (valve) stenosis PLAN: Plan RECOMMENDATIONS: 1. Continue diuresis 2. Walking oximetry prior to discharge 3. Continue BiPAP at night with sleep 4. Walking oximetry prior to discharge 5. Would not recommend steroids or antibiotics at this time IMPRESSIONS: 1. Acute on chronic hypoxic respiratory failure secondary to CHF Patient with multiple aggravating factors including aortic stenosis, combined CHF and pulmonary hypertension. Patient also noted to be approximately 10 pounds above dry weight. Agree with diuretics moving forward. Patient is not having any purulent sputum or other indication for acute infectious etiology. Would not recommend steroids or antibiotics at this time. Patient will need a walking oximetry prior to discharge as there can be significant increase in oxygen requirements in the setting of pulmonary hypertension. Patient will also benefit from using BiPAP with sleep and rescue during the day. Could consider transitioning to patient's home BiPAP prior to discharge to ensure this will be sufficient on discharge. Patient will have a relatively narrow therapeutic window on fluid status. 2. Debility/delirium v dementia/morbid obesity/seizure disorder/CKD stage IV/paroxysmal A-fib/CAD status post CABG/type 2 diabetes Complicates care, management, recovery and prognosis. Patient does have most of his home medications going well at this time. Haldol as needed would be recommended over barbiturates if necessary. Patient does not appear to have significant electrolyte abnormalities to contribute to delirium. Blood sugars are well controlled at this time HPI Consult Data Date of Consult: 09/20/23 HPI Narrative Reason for Consultation: Persistent hypoxia HPI Narrative: JODIE SILVERIO is an 83 M, with past medical history listed below, who presented to [facility] on 09/16/2023 secondary to a hypoxic episode. Patient reportedly was admitted at [facility] previously and transferred to a long-term center secondary to rehab. Patient reportedly was working with rehab and had desaturated into the upper 70s on pulse ox. Patient does have a known respiratory failure and requires 2 L/min at rest and 4 L with exertion. Patient reportedly had been changed from Lasix to torsemide with little improvement. In the ER, patient was afebrile, bradycardic in the 50s and normotensive. Patient was requiring up to 5 L nasal cannula to maintain saturations. In the ER, patient had a white blood cell count of 7.1, hemoglobin of 10.1 and platelets of 130. Chemistry showed an elevated BUN of 53 and a creatinine of 2.12. Patient's bicarbonate was noted to be 22. Patient's BNP at that time was 179 with a troponin of 41. Chest x-ray at that time had shown cardiomegaly. Patient was admitted to the hospital as he required over 6 L nasal cannula to m aintain saturations with ambulation. Since being admitted to the hospital, patient has received significant diuresis. Patient has had a slight increase in creatinine, so a pulmonary consult was obtained for recommendations. Patient has been diuresed approximately 5.2 L from a weight of 118 kg to 115 kg. Patient's dry weight appears to be approximately 109 kg as recent as July 2023. Patient does follow with Dr. Garcia in our office. Patient has not reported any change in cough, production or sputum consistency, color or character. Patient has had some mild epistaxis with secondary hemoptysis. Patient is not reporting any chest pain. Patient does feel slightly improved over the course of the hospitalization, but is discouraged that he still requires so much oxygen patient's granddaughter was at the bedside to provide additional information. Review of systems otherwise negative from a constitutional, HEENT, respiratory, cardiovascular, GI, genitourinary, musculoskeletal, skin, neurologic, psychiatric and hematologic system unless stated above. [facility] Medical History Anemia Atherosclerosis of coronary artery bypass graft without angina pectoris Atherosclerosis of coronary artery of [place] heart without angina pectoris Chronic combined systolic and diastolic CHF (congestive heart failure) Chronic renal failure, stage 3 (moderate) Chronic respiratory failure with hypoxia COPD (chronic obstructive pulmonary disease) Essential (primary) hypertension Former smoker Hyperlipemia Left bundle branch block Lymphedema Morbid obesity with BMI of 45.0-49.9, adult Non-rheumatic aortic stenosis Obstructive sleep apnea Ocular migraine AUTUMN treated with BiPAP PAF (paroxysmal atrial fibrillation) TIA (transient ischemic attack) Type 2 diabetes mellitus without complications Venous insufficiency of both lower extremities Home Medications aspirin 81 mg tablet,delayed release 81 mg PO DAILY HEART HEALTH 07/11/16 [History Last Taken 07/03/23] multivitamin 1 ea PO DAILY HEALTH MAINTENANCE 07/11/16 [History Last Taken 07/30 12/20] insulin regular human 100 unit/mL injection solution 12 unit subcut BID DIABETES 07/24/16 [History Last Taken 07/02/23] cholecalciferol (vitamin D3) 25 mcg (1,000 unit) tablet 25 mcg PO DAILY CHOWDHURY PPLEMENT 10/26/16 [History Last Taken 08/18/23] sertraline 25 mg tablet 25 mg PO DAILY DEPRESSION 01/10/18 [History Last Taken 08/18/23] insulin NPH isoph U-100 human 100 unit/mL subcutaneous suspension 20 unit subcut BID DIABETES 03/08/18 [History Last Taken 07/03/23] famotidine 20 mg tablet 20 mg PO DAILY GERD 11/13/19 [History Last Taken 08/18/23] olanzapine 2.5 mg tablet 2.5 mg PO QHS DEPRESSION 11/13/19 [History Last Taken 08/17/23] allopurinol 300 mg tablet 300 mg PO DAILY GOUT 12/07/21 [History Last Taken 08/18/23] apixaban 2.5 mg tablet (Eliquis) 2.5 mg PO BID BLOOD THINNER 10/07/22 [History Last Taken 07/03/23] calcitriol 0.25 mcg capsule 0.5 mcg PO MOWEFR SUPPLEMENT 10/07/22 [History Last Taken 08/17/23] isosorbide mononitrate 30 mg tablet,extended release 24 hr 30 mg PO DAILY HEART #90 tabs 02/01/23 [Rx Last Taken 08/18/23] potassium chloride 20 mEq tablet,extended release 20 meq PO DAILY potassium #1 TAB 07/03/23 [Rx Last Taken Unknown] psyllium husk (aspartame) 3 gram oral powder packet (Daily Fiber (psyllium- aspartame)) 1 packet PO BID constipation #0 ea 07/03/23 [Rx Last Taken 07/03/23] levetiracetam 100 mg/mL oral solution (Keppra) 500 mg PO BID 08/18/23 [History Last Taken 08/18/23] menthol 0.44 %-zinc oxide 20.6 % topical ointment (Calmoseptine) 1 applic topical BID 08/18/23 [History Last Taken 08/18/23] nystatin 100,000 unit/gram topical powder (Nystop) 1 applic topical BID 08/18/23 [History Last Taken 08/18/23] sennosides 8.6 mg-docusate sodium 50 mg tablet (2-in-1 Laxative) 1 tab-cap PO BID 08/18/23 [History Last Taken 08/18/23] amlodipine 2.5 mg tablet 2.5 mg PO DAILY 09/16/23 [History Last Taken Unknown] torsemide 20 mg tablet 20 mg PO DAILY 09/16/23 [History Last Taken Unknown] Allergy/AdvReac Type Severity Reaction Status Date / Time Penicillins [PCN] Allergy Swelling Verified 09/16/23 15:20 Family History Father Myocardial infarction Mother CVA (cerebral vascular accident) Brother CAD (coronary artery disease) Diabetes Surgical History H/O aortic valve replacement (02/24/16) H/O coronary artery bypass surgery (02/24/16) Hx of cholecystectomy (01/13/17) Social History household members: family and other details: Granddaughter. Smoking Status: Former smoker how long ago did patient quit smokin + years alcohol intake: never substance use type: does not use caffeine: Yes Type: carbonated beverages and tea ROS ROS Narrative See HPI Physical Exam Const alert Constitutional Narrative: Patient sitting in the chair. Somewhat garbled speech. HEENT normocephalic, head/scalp atraumatic, hearing grossly normal bilaterally, nasal mucous membranes and turbinates normal and moist oral mucous membranes Eyes PERRL, EOMs intact bilaterally and conjunctivae normal Neck full ROM, no lymphadenopathy and supple Lymph Lymphatic: no lymphadenopathy noted Resp Resp Narrative: Comfortable breathing at rest, but tachypnea with minimal exertion. Auscultation: rales bilateral base Cardio regular rate, regular rhythm, S1 normal heart sound, S2 normal heart sound and peripheral pulses 2+ throughout Heart Sounds: murmur systolic II/ soft early right sternal border GI normal to inspection, nondistended, normoactive bowel sounds, soft to palpation, non-tender and non-distended Back/Spine normal ROM Extremity normal to inspection and full ROM General Extremity: edema bilateral (2+ bilateral. Joe bandage in place.) lower extremity Skin no rashes or lesions noted Neuro moves all extremities Psych mental status grossly normal Medical Records Data Attestation: I reviewed the patient's medical records Lab / Micro Data Attestation: I reviewed the patient's lab results. 09/17/23 06:40 09/20/23 04:51 Labs: Laboratory Results - last 24 hr 09/19/23 11:42: POC Glucose 150 H 09/19/23 16:06: POC Glucose 131 H 09/19/23 21:59: POC Glucose 120 H 09/20/23 04:51: Sodium 139, Potassium 4.9, Chloride 110 H, Carbon Dioxide 24.0, Anion Gap 5, BUN 66 H, Creatinine 2.61 H, Estim Creat Clear Calc 18.98, Est GFR (MDRD) Af Amer 30 L, Est GFR (MDRD) Non-Af 25 L, BUN/Creatinine Ratio 25.3 H, Glucose 112 H, Calcium 8.9 09/20/23 08:35: POC Glucose 95 09/20/23 12:06: POC Glucose 179 H Charges/Coding Visit Charges Inpatient E&M: 29474 Init Hosp L3
[2023-09-20] MEDS: Furosemide 40 MG/4 ML Vial IV (17:20)
[2023-09-20] MEDS: 0.9% Saline Lock 10 ML Syringe IV (17:22)
[2023-09-20 17:54] LABS: Bedside Glucose 157 mg/dL (74-106)
[2023-09-20] MEDS: Atorvastatin Calcium 40 MG Tablet PO (21:12)
[2023-09-20] MEDS: OLANZapine 2.5 MG Tablet PO (21:12)
[2023-09-20 23:36] LABS: Bedside Glucose 186 mg/dL (74-106)
[2023-09-21] VITALS (10 sets, daily range): BP systolic 100–136; BP diastolic 46–71; PULSE 53–66; RESP 18–24; TEMP 36.4–36.5; O2SAT 85–96; BMI 41.9
[2023-09-21 05:12] LABS: Anion Gap 6 (5-15); BUN 67 mg/dL (7-18); BUN/Creat Ratio 24.5 RATIO (10-20); Calcium,Total 8.9 mg/dL (8.5-10.1); Chloride 107 mmol/L (98-107); Creatinine, Serum 2.73 mg/dL (0.70-1.30); EST Glomerular Filtration Rate 24 mL/min (>60); Est Glom Filt Rate - Afr Amer 29 mL/min (>60); Estimated Creatinine Clearance 18.15 ml/min; Glucose 127 mg/dL (74-106); Potassium 4.6 mmol/L (3.5-5.1); Sodium Level 138 mmol/L (136-145)
[2023-09-21] MEDS: Budesonide Respules 0.5 MG/2 ML AMPUL.NEB. INHALATION (06:49)
--- NOTE | 2023-09-21 08:01 | PN.CC_ITS ---
Assessment & Plan Assessment/Plan (1) Acute exacerbation of CHF (congestive heart failure): QUALIFIERS: Heart failure type: combined systolic and diastolic Qualified Code(s): I50.43 - Acute on chronic combined systolic (congestive) and diastolic (congestive) heart failure (2) CKD (chronic kidney disease) stage 4, GFR 15-29 ml/min: (3) Chronic respiratory failure: QUALIFIERS: Respiratory failure complication: hypoxia Qualified Code(s): J96.11 - Chronic respiratory failure with hypoxia (4) Aortic stenosis: QUALIFIERS: Cardiac valve disease etiology: nonrheumatic Qualified Code(s): I35.0 - Nonrheumatic aortic (valve) stenosis PLAN: Plan RECOMMENDATIONS: 1. Continue diuresis at increased rate for another 24 hours 2. Possible walking oximetry tomorrow 3. Continue BiPAP at night with sleep 4. Walking oximetry prior to discharge 5. Would not recommend steroids or antibiotics at this time 6. Consider arranging for patient to bring in his home BiPAP for tonight to ensure that it is adequate IMPRESSIONS: 1. Acute on chronic hypoxic respiratory failure secondary to CHF Patient with multiple aggravating factors including aortic stenosis, c ombined CHF and pulmonary hypertension. Patient also still noted to be approximately 10 pounds above dry weight. Agree with diuretics moving forward. Patient is not having any purulent sputum or other indication for acute infectious etiology. Would not recommend steroids or antibiotics at this time. Likely check walking oximetry tomorrow with possible discharge pending response. Patient will also benefit from using BiPAP with sleep and rescue during the day. Could consider transitioning to patient's home BiPAP prior to discharge to ensure this will be sufficient on discharge. Patient will have a relatively narrow therapeutic window on fluid status. 2. Debility/delirium v dementia/morbid obesity/seizure disorder/CKD stage IV/paroxysmal A-fib/CAD status post CABG/type 2 diabetes Complicates care, management, recovery and prognosis. Patient does have most of his home medications going well at this time. Haldol as needed would be recommended over barbiturates if necessary. Patient does not appear to have significant electrolyte abnormalities to contribute to delirium. Blood sugars are well controlled at this time Subjective Subjective Patient did okay overnight. Patient did feel that he was able to get to the bed easier last night than previous. Patient did not wear his BiPAP overnight per documentation, but the patient states that he did have it on for a brief period of time. Patient did complain about having to get up overnight for urination, but is not currently reporting any chest pain, abdominal pain, nausea or vomiting. Objective Data Objective Data Vital Signs: Vital Signs Temp Pulse Resp BP Pulse Ox O2 Del Method O2 Flow Rate 36.5 C L 53 L 24 H 136/57 H 95 Nasal Cannula 3.5 09/21/23 02:51 09/21/23 06:49 09/21/23 06:49 09/21/23 02:51 09/21/23 06:49 09/21/23 06:49 09/21/23 06:49 FiO2 30 09/20/23 22:50 Oxygen Flow Rate (L/min) [ 6 AMBULATING with Oxygen #3] Oxygen Flow Rate (L/min) [ 5 AMBULATING with Oxygen #2] Oxygen Flow Rate (L/min) [ 4 AMBULATING with Oxygen #1] Oxygen Flow Rate (L/min) [At 2 REST with Oxygen] Oxygen Flow Rate (L/min) 3.5 Oxygen Delivery Method Nasal Cannula Weight: 114.3 kg Body Mass Index (BMI) 41.9 Intake & Output: Intake and Output for Last 24 Hours 09/19/23 09/20/23 09/21/23 23:59 23:59 23:59 Intake Total 340 / 340 0 / 0 Output Total 1550 / 1650 1850 / 1850 400 / 400 Balance -1210 / -1310 -1850 / -1850 -400 / -400 Lab / Micro Data Attestation: I reviewed the patient's lab results. 09/17/23 06:40 09/21/23 04:08 Labs: Laboratory Results - last 24 hr 09/20/23 08:35: POC Glucose 95 09/20/23 12:06: POC Glucose 179 H 09/20/23 17:14: POC Glucose 157 H 09/20/23 21:06: POC Glucose 186 H 09/21/23 04:08: Sodium 138, Potassium 4.6, Chloride 107, Carbon Dioxide 25.0, Anion Gap 6, BUN 67 H, Creatinine 2.73 H, Estim Creat Clear Calc 18.15, Est GFR (MDRD) Af Amer 29 L, Est GFR (MDRD) Non-Af 24 L, BUN/Creatinine Ratio 24.5 H, Glucose 127 H, Calcium 8.9 Micro: Microbiology 09/16/23 20:00 Mucosa - Nasopharyngeal Coronavirus COVID-19 PCR - Final 09/16/23 20:00 Mucosa - Nasopharyngeal Respiratory Panel (PCR) - Final Physical Exam Const alert Constitutional Narrative: Patient resting quietly on my initial presentation. Somewhat less garbled speech. HEENT normocephalic, head/scalp atraumatic, hearing grossly normal bilaterally, nasal mucous membranes and turbinates normal and moist oral mucous membranes Eyes PERRL, EOMs intact bilaterally and conjunctivae normal Neck full ROM, no lymphadenopathy and supple Lymph Lymphatic: no lymphadenopathy noted Resp Auscultation: rales bilateral base and diminished lung sounds; Negative for rhonchi or wheezes Cardio regular rate, regular rhythm, S1 normal heart sound, S2 normal heart sound and peripheral pulses 2+ throughout Heart Sounds: murmur systolic II/ soft early right sternal border GI normal to inspection, nondistended, normoactive bowel sounds, soft to palpation, non-tender and non-distended Back/Spine normal ROM Extremity normal to inspection and full ROM General Extremity: edema bilateral (2+ bilateral. Joe bandage in place.) lower extremity Skin no rashes or lesions noted Neuro moves all extremities Psych mental status grossly normal Charges/Coding Visit Charges Inpatient E&M: 43636 Subs Hosp L2
[2023-09-21 08:42] LABS: Bedside Glucose 118 mg/dL (74-106)
[2023-09-21] MEDS: Furosemide 40 MG/4 ML Vial IV ×2 (09:19→17:41)
[2023-09-21] MEDS: 0.9% Saline Lock 10 ML Syringe IV ×2 (09:20→17:41)
[2023-09-21] MEDS: Aspirin E.C. 81 MG Tablet PO (09:20)
[2023-09-21] MEDS: Sertraline 50 MG Tablet 25 MG PO (09:20)
[2023-09-21] MEDS: Potassium Chloride Oral Tablet 20 MEQ PO (09:20)
[2023-09-21] MEDS: Cholecalciferol (VIT D3) 25 MCG TABLET (1,000 UNITS) PO (09:21)
[2023-09-21] MEDS: Multivitamins,Therapeutic Tablet 1 TABLET PO (09:21)
[2023-09-21] MEDS: amLODIPine 2.5 MG Tablet PO (09:21)
[2023-09-21] MEDS: Calcitriol 0.25 MCG Capsule 0.5 MCG PO (09:21)
[2023-09-21] MEDS: Famotidine 20 MG Tablet PO (09:21)
[2023-09-21] MEDS: Doxepin Hydrochloride 10 MG Capsule PO (09:21)
[2023-09-21] MEDS: APIXABAN 2.5 MG TABLET (WCH) PO ×2 (09:21→22:20)
[2023-09-21] MEDS: Isosorbide Mononitrate 30 MG Tablet PO (09:21)
[2023-09-21] MEDS: Allopurinol 300 MG Tablet 150 MG PO (09:21)
[2023-09-21] MEDS: levETIRAcetam Oral Solution 500 MG/5 ML PO ×2 (09:22→22:19)
[2023-09-21] MEDS: Miconazole Nitrate 43 GM Bottle 1 APPLIC TOPICAL ×2 (09:22→22:19)
[2023-09-21] MEDS: Menthol/Lanolin/Calamine/Znox 113 GM Tube 1 APPLIC TOPICAL ×2 (09:22→22:18)
--- NOTE | 2023-09-21 11:31 | PCM.PN.HOSP ---
Subjective Subjective Doing well, no issues overnight seems to be breathing a little bit better. Objective Data Objective Data Vital Signs: Vital Signs Temp Pulse Resp BP Pulse Ox O2 Del Method O2 Flow Rate 97.7 F L 66 18 132/71 H 92 Nasal Cannula 3 09/21/23 09:00 09/21/23 09:00 09/21/23 09:00 09/21/23 09:00 09/21/23 09:17 09/21/23 09:00 09/21/23 09:17 FiO2 30 09/20/23 22:50 Oxygen Flow Rate (L/min) [ 6 AMBULATING with Oxygen #3] Oxygen Flow Rate (L/min) [ 4 AMBULATING with Oxygen #2] Oxygen Flow Rate (L/min) [ 3 AMBULATING with Oxygen #1] Oxygen Flow Rate (L/min) [At 3 REST with Oxygen] Oxygen Flow Rate (L/min) 3 Oxygen Delivery Method Nasal Cannula Weight: 251 lb 15.814 oz Body Mass Index (BMI) 41.9 Intake & Output: Intake and Output for Last 24 Hours 09/20/23 09/21/23 09/22/23 03:59 03:59 03:59 Intake Total 240 / 240 Output Total 1050 / 1050 1750 / 1750 400 / 400 Balance -810 / -810 -1750 / -1750 -400 / -400 Lab / Micro Data 09/17/23 06:40 09/21/23 04:08 Labs: Laboratory Results - last 24 hr 09/20/23 12:06: POC Glucose 179 H 09/20/23 17:14: POC Glucose 157 H 09/20/23 21:06: POC Glucose 186 H 09/21/23 04:08: Sodium 138, Potassium 4.6, Chloride 107, Carbon Dioxide 25.0, Anion Gap 6, BUN 67 H, Creatinine 2.73 H, Estim Creat Clear Calc 18.15, Est GFR (MDRD) Af Amer 29 L, Est GFR (MDRD) Non-Af 24 L, BUN/Creatinine Ratio 24.5 H, Glucose 127 H, Calcium 8.9 09/21/23 08:25: POC Glucose 118 H Micro: Microbiology 09/16/23 20:00 Mucosa - Nasopharyngeal Coronavirus COVID-19 PCR - Final 09/16/23 20:00 Mucosa - Nasopharyngeal Respiratory Panel (PCR) - Final Physical Exam Narrative General: Alert, Oriented x3, Cooperative, No apparent distress HEENT: Atraumatic, PERRLA, EOMI, Normocephalic Oral: Moist Mucosa Neck: Supple, No JVD Lungs: Diminished, Normal air movement, No rhonchi, No wheeze, No rales Cardiovascular: Regular rate, Regular Rhythm, Normal S1, Normal S2, No murmurs Abdomen: Soft, Non Tender, Non-Distended, No Hepato-splenomegaly Extremities: Edema, Capillary Refill Less than 3 Seconds Skin: No rashes, No breakdown Musculoskeletal: No Tenderness to Palpation of Joints or Extremities Neurological: Cranial nerves II-XII grossly intact, Motor Exam 5/5 strength throughout, Sensory exam intact to light touch and pain Psych/Mental Status: Normal Affect, Appropriate Assessment & Plan Assessment/Plan (1) Debility: PLAN: Plan 1. Acute on chronic hypoxic respiratory failure, mildly decompensated combined heart failure ?Most recent echo on 06/29/2023 with normal LV size, EF 40%, PASP 44 mmHg, otherwise unremarkable. BNP 179 on admit, appears to be around his baseline. ?Ambulatory pulse ox demonstrated need for 7 L with 3 L at rest. ? Appreciate pulmonology's assistance ? Continue with diuresis ? Monitor his renal function 2. Debility Secondary to age and significant comorbidities. Notably was just discharged from SNF on morning of 09/16, had been there since previous discharge on 08/22. ? PT/OT/case management following. Discussed at length with patient's granddaughter outside room on 09/18. Patient lives with granddaughter, was fairly functional at baseline prior to previous hospitalization from 08/18 to 08/22. Granddaughter then states that patient received poor care at rehab facility. She would like for patient to go home with home health care on discharge but recognizes that patient is weaker than his baseline. She states that patient has home health care set up already, and actually has palliative care coming in to see the patient in the home this week. ? There is no interest in SNF so when stable will discharge home, both him and granddaughter recognize some of the safety issues involved with this decision 3. Delirium, concern for underlying dementia Suspect hospital delirium. Patient alert and oriented x3 on 09/17, then delirious on morning of 09/18 and not answering questions appropriately. Wore BiPAP overnight on 09/17, no concern for hypercarbia. No other significant lab abnormalities. Patient's granddaughter states that patient experienced this type of delirium on previous hospitalization as well. ?He is on olanzapine, will discontinue Seroquel. Can give IV Haldol as needed if patient has significant hyperactive delirium. ? Appears to have resolved and granddaughter seeking to remove guardianship Chronic medical conditions: ? Morbid obesity: BMI 43. Encouraged lifestyle modifications. ? Seizure disorder: Continue home Keppra. ? CKD stage IV: Admission BUN/creatinine of 53/2.12, at baseline. Monitor daily BMP. ? Paroxysmal A-fib: Continue home Eliquis. ? COPD with chronic hypoxic respiratory failure: Continue home inhalers. ? CAD s/p CABG: Continue home aspirin, statin. ? Type 2 diabetes: Holding home oral regimen, sliding scale insulin while inpatient. ? Anxiety/depression: Continue home sertraline and olanzapine. DVT: Eliquis Charges/Coding Visit Charges Inpatient E&M: 97435 Subs Hosp L2
--- NOTE | 2023-09-21 11:50 | CASEMGMT ---
Patient has a Healthcare Power of Film Cleaner and Durable Power of Film Cleaner on file at [facility]. However, only every other page is copied. SW notified patient's granddaughter and she will being in a copy of each. Brittny Alonso ASSISTANT ACCOUNT MANAGER ERIKA
[2023-09-21 11:59] LABS: Bedside Glucose 137 mg/dL (74-106)
[2023-09-21] MEDS: Insulin Lispro 100 UNIT/ML INSULN.PEN SC ×2 (16:41→22:16)
[2023-09-21 17:15] LABS: Bedside Glucose 156 mg/dL (74-106)
[2023-09-21] MEDS: Psyllium 1 PACKET PO (22:21)
[2023-09-21] MEDS: Atorvastatin Calcium 40 MG Tablet PO (22:22)
[2023-09-21] MEDS: OLANZapine 2.5 MG Tablet PO (22:22)
[2023-09-21 22:48] LABS: Bedside Glucose 158 mg/dL (74-106)
[2023-09-22 02:48] VITALS: BMI 41.6
[2023-09-22 02:51] VITALS: BP 109/50; PULSE 68; RESP 18; TEMP 36.4; O2SAT 95
--- NOTE | 2023-09-22 04:02 | CPS ---
Pt declined use of bipap tonight.
[2023-09-22 08:04] LABS: Absolute Lymphocyte Count 1.44 X10^3/uL (0.83-4.51); Absolute Neutrophil Count 5.3 X10^3/uL (2.0-7.7); Basophil# 0.03 X10^3/uL; Basophil% 0.4 % (0-1); Eosinophil# 0.28 X10^3/uL; Eosinophils% 3.7 % (0-5); Hematocrit 30.3 % (40-54); Hemoglobin 9.5 g/dL (13.0-16.5); Lymphocyte # 1.44 X10^3/ul (0.83-4.51); Lymphocyte % 18.8 % (19-41); Mean Corp Hgb Conc 31.4 g/dL (32-36); Mean Corpuscular Hgb 31.4 pg (27.0-32.0); Mean Platelet Vol. 11.5 fl (6.2-12.0); Monocyte# 0.62 X10^3/uL; Monocyte% 8.1 % (0-10); NRBC Flagged by Analyzer 0 % (0-5); Neutrophil # 5.28 X10^3/uL (2.7-7.7); Neutrophil % 68.7 % (47-70); Platelet Count 132 K/mm3 (150-450); RBC Distribution Width CV 15.6 % (11.6-14.6); Red Blood Count 3.03 M/mm3 (4.6-6.2); White Blood Count 7.7 K/mm3 (4.4-11.0)
[2023-09-22 08:27] LABS: Anion Gap 5 (5-15); BUN 73 mg/dL (7-18); BUN/Creat Ratio 26.5 RATIO (10-20); Chloride 105 mmol/L (98-107); Creatinine, Serum 2.75 mg/dL (0.70-1.30); EST Glomerular Filtration Rate 24 mL/min (>60); Est Glom Filt Rate - Afr Amer 29 mL/min (>60); Estimated Creatinine Clearance 18.02 ml/min; Glucose 129 mg/dL (74-106); Potassium 4.4 mmol/L (3.5-5.1); Sodium Level 137 mmol/L (136-145)
[2023-09-22 09:00] VITALS: BP 109/66; PULSE 66; RESP 18; TEMP 36.4; O2SAT 95
[2023-09-22] MEDS: Sertraline 50 MG Tablet 25 MG PO (09:02)
[2023-09-22] MEDS: Famotidine 20 MG Tablet PO (09:03)
[2023-09-22] MEDS: amLODIPine 2.5 MG Tablet PO (09:03)
[2023-09-22] MEDS: Allopurinol 300 MG Tablet 150 MG PO (09:03)
[2023-09-22] MEDS: APIXABAN 2.5 MG TABLET (WCH) PO (09:03)
[2023-09-22] MEDS: Isosorbide Mononitrate 30 MG Tablet PO (09:03)
[2023-09-22] MEDS: Cholecalciferol (VIT D3) 25 MCG TABLET (1,000 UNITS) PO (09:04)
[2023-09-22] MEDS: Aspirin E.C. 81 MG Tablet PO (09:04)
[2023-09-22] MEDS: levETIRAcetam Oral Solution 500 MG/5 ML PO (09:04)
[2023-09-22] MEDS: Doxepin Hydrochloride 10 MG Capsule PO (09:04)
[2023-09-22] MEDS: Multivitamins,Therapeutic Tablet 1 TABLET PO (09:04)
[2023-09-22] MEDS: Potassium Chloride Oral Tablet 20 MEQ PO (09:04)
[2023-09-22] MEDS: Psyllium 1 PACKET PO (09:05)
[2023-09-22] MEDS: Miconazole Nitrate 43 GM Bottle 1 APPLIC TOPICAL (09:23)
[2023-09-22] MEDS: Menthol/Lanolin/Calamine/Znox 113 GM Tube 1 APPLIC TOPICAL (09:23)
--- NOTE | 2023-09-22 09:24 | PCM.PN.INT ---
Assessment & Plan Assessment/Plan (1) Acute exacerbation of CHF (congestive heart failure): QUALIFIERS: Heart failure type: combined systolic and diastolic Qualified Code(s): I50.43 - Acute on chronic combined systolic (congestive) and diastolic (congestive) heart failure (2) CKD (chronic kidney disease) stage 4, GFR 15-29 ml/min: (3) Chronic respiratory failure: QUALIFIERS: Respiratory failure complication: hypoxia Qualified Code(s): J96.11 - Chronic respiratory failure with hypoxia (4) Aortic stenosis: QUALIFIERS: Cardiac valve disease etiology: nonrheumatic Qualified Code(s): I35.0 - Nonrheumatic aortic (valve) stenosis PLAN: Plan RECOMMENDATIONS: 1. Transition to baseline diuretic therapy 2. Obtain walking oximetry 3. Continue BiPAP at night with sleep 4. Walking oximetry prior to discharge 5. Would not recommend steroids or antibiotics at this time 6. Consider arranging for patient to bring in his home BiPAP for tonight to ensure that it is adequate 7. Possible discharge later today IMPRESSIONS: 1. Acute on chronic hypoxic respiratory failure secondary to CHF Patient with multiple aggravating factors including aortic stenosis, combined CHF and pulmonary hypertension. Patient also still noted to be approximately 10 pounds above dry weight. Agree with diuretics moving forward. Patient is not having any purulent sputum or other indication for acute infectious etiology. Would not recommend steroids or antibiotics at this time. Check walking oximetry with possible discharge pending response. Patient will also benefit from using BiPAP with sleep and rescue during the day. Could consider transitioning to patient's home BiPAP prior to discharge to ensure this will be sufficient on discharge. Patient will have a relatively narrow therapeutic window on fluid status. Patient can follow-up in pulmonary as previously scheduled 2. Debility/delirium v dementia/morbid obesity/seizure disorder/CKD stage IV/paroxysmal A-fib/CAD status post CABG/type 2 diabetes Complicates care, management, recovery and prognosis. Patient does have most of his home medications going well at this time. Haldol as needed would be recommended over barbiturates if necessary. Patient does not appear to have significant electrolyte abnormalities to contribute to delirium. Blood sugars are well controlled at this time Subjective Subjective Patient did well overnight. Patient reports subjective improvement in overall condition and was actually in his bedside chair eating breakfast on my arrival. Patient not reporting any pain. Patient reporting less dyspnea on exertion compared to previous. Objective Data Objective Data Vital Signs: Vital Signs Temp Pulse Resp BP Pulse Ox O2 Del Method O2 Flow Rate 36.4 C L 68 18 109/50 L 95 Nasal Cannula 4 09/22/23 02:51 09/22/23 02:51 09/22/23 02:51 09/22/23 02:51 09/22/23 02:51 09/22/23 02:51 09/22/23 02:51 FiO2 30 09/20/23 22:50 Oxygen Flow Rate (L/min) [ 6 AMBULATING with Oxygen #3] Oxygen Flow Rate (L/min) [ 4 AMBULATING with Oxygen #2] Oxygen Flow Rate (L/min) [ 3 AMBULATING with Oxygen #1] Oxygen Flow Rate (L/min) [At 3 REST with Oxygen] Oxygen Flow Rate (L/min) 4 Oxygen Delivery Method Nasal Cannula Weight: 113.6 kg Body Mass Index (BMI) 41.6 Intake & Output: Intake and Output for Last 24 Hours 09/20/23 09/21/23 09/22/23 23:59 23:59 23:59 Intake Total 0 / 0 750 / 750 Output Total 1850 / 1850 1200 / 1200 200 / 200 Balance -1850 / -1850 -450 / -450 -200 / -200 Lab / Micro Data Attestation: I reviewed the patient's lab results. 09/22/23 06:39 09/22/23 06:39 Labs: Laboratory Results - last 24 hr 09/21/23 11:35: POC Glucose 137 H 09/21/23 16:40: POC Glucose 156 H 09/21/23 22:09: POC Glucose 158 H 09/22/23 06:39: WBC 7.7, RBC 3.03 L, Hgb 9.5 L, Hct 30.3 L, MCV 100.0 H, MCH 31.4, MCHC 31.4 L, RDW Std Deviation 57.0 H, RDW Coeff of Yeny 15.6 H, Plt Count 132 L, MPV 11.5, Immature Gran % (Auto) 0.300, Neut % (Auto) 68.7, Lymph % (Auto) 18.8 L, [place] % (Auto) 8.1, Eos % (Auto) 3.7, Baso % (Auto) 0.4, Absolute Neuts (auto) 5.3, Absolute Lymphs (auto) 1.44, Nucleated RBC % 0, Sodium 137, Potassium 4.4, Chloride 105, Carbon Dioxide 27.0, Anion Gap 5, BUN 73 H, Creatinine 2.75 H, Estim Creat Clear Calc 18.02, Est GFR (MDRD) Af Amer 29 L, Est GFR (MDRD) Non-Af 24 L, BUN/Creatinine Ratio 26.5 H, Glucose 129 H, Calcium 9.0 Micro: Microbiology 09/16/23 20:00 Mucosa - Nasopharyngeal Coronavirus COVID-19 PCR - Final 09/16/23 20:00 Mucosa - Nasopharyngeal Respiratory Panel (PCR) - Final Physical Exam Const alert Constitutional Narrative: Patient sitting in chair eating breakfast comfortably HEENT normocephalic, head/scalp atraumatic, hearing grossly normal bilaterally, nasal mucous membranes and turbinates normal and moist oral mucous membranes Eyes PERRL, EOMs intact bilaterally and conjunctivae normal Neck full ROM, no lymphadenopathy and supple Lymph Lymphatic: no lymphadenopathy noted Resp Auscultation: rales bilateral (Continues to improve) base and diminished lung sounds; Negative for rhonchi or wheezes Cardio regular rate, regular rhythm, S1 normal heart sound, S2 normal heart sound and peripheral pulses 2+ throughout Heart Sounds: murmur systolic II/ soft early right sternal border GI normal to inspection, nondistended, normoactive bowel sounds, soft to palpation, non-tender and non-distended Back/Spine normal ROM Extremity normal to inspection and full ROM General Extremity: edema bilateral (1+ bilateral. Joe bandage in place.) lower extremity Skin no rashes or lesions noted Neuro moves all extremities Psych mental status grossly normal Charges/Coding Visit Charges Inpatient E&M: 66731 Subs Hosp L2
[2023-09-22] MEDS: Furosemide 20 MG Tablet PO (09:26)
[2023-09-22 11:40] VITALS: O2SAT 86; O2SAT 88; O2SAT 92; O2SAT 95
--- NOTE | 2023-09-22 12:09 | CASEMGMT ---
Patient's granddaughter brought in Durable Power of Fitter Tacker papers and Healthcare Power of Fitter Tacker papers. SW made copies of both sides and placed them in patient's chart. Brittny JAMES
--- NOTE | 2023-09-22 13:11 | PCM.DC ---
Discharge Instructions Diet Discharge Diet: Low fat / Low cholesterol, 6 Cup Fluid Restriction and Carb Control Diet Activity Discharge Activity: Return to Normal Activity Dressing / Incision Call your doctor if you observe: Fever of 101 or Higher, Shortness of breath, Dizziness, Fainting spells, Swelling in the ankles, Chest pain and Increased palpitations (irregular heartbeat) Follow Up Care Test Results: Test results from this visit will be discussed in further detail at your follow-up appointment, if applicable. Discharge Plan Admission Admit Date/Time: 09/16/23 18:12 Attending Provider: Eladio Lucas Primary Care Provider: Rios Downey Consulting Providers: Patricia Alcantara; Woody Brunson; Aleksander Hilliard; Yaakov Love; Josh Cline; Michelle Peters; Otto Jerry; Tal Ashraf; Gosia Saenz [employer] Instructions Additional Instructions / Restrictions: Follow-up your PCP in 3 to 5 days to check your renal function. Discharge Orders/Prescriptions Prescriptions: New furosemide 20 mg Tablet 20 mg PO DAILY 30 Days Qty: 30 0RF Continued famotidine 20 mg tablet 20 mg PO DAILY olanzapine 2.5 mg tablet 2.5 mg PO QHS Eliquis 2.5 mg tablet 2.5 mg PO BID aspirin 81 MG tablet,delayed release (DR/EC) 81 mg PO DAILY Patient Comments: multivitamin 1 EACH tablet 1 ea PO DAILY insulin regular human 100 UNIT/ML solution 12 unit SC BID Patient Comments: afternoon and night cholecalciferol (vitamin D3) 1,000 UNIT tablet 25 mcg PO DAILY sertraline 25 MG tablet 25 mg PO DAILY calcitriol 0.25 mcg capsule 0.5 mcg PO MOWEFR allopurinol 300 mg tablet 300 mg PO DAILY amlodipine 2.5 mg tablet 2.5 mg PO DAILY insulin NPH isoph U-100 human 100 unit/mL suspension 20 unit SC BID Qty: 1 0RF Rx Instructions: 5 UNITS IN THE MORNING 5 UNITS AT BEDTIME Daily Fiber (psyllium-aspart) 3 gram Powder In Packet 1 packet PO BID Qty: 0 0RF potassium chloride 20 mEq tablet extended release 20 meq PO DAILY Qty: 1 0RF menthol-zinc oxide [Calmoseptine] 0.44-20.6 % ointment 1 applic topical BID nystatin [Nystop] 100,000 unit/gram powder 1 applic topical BID sennosides-docusate sodium [2-in-1 Laxative] 8.6-50 mg tablet 1 tab-cap PO BID levetiracetam [Keppra] 100 mg/mL solution 500 mg PO BID isosorbide mononitrate 30 mg tablet extended release 24 hr 30 mg PO DAILY Qty: 90 4RF Discontinued torsemide 20 mg tablet 20 mg PO DAILY Referrals / Follow Up: Rios Downey DO [Primary Care Provider] - 09/27/23 3:30 pm Disposition Disposition (needs filled in before D/C Order can be placed): Home Health Service
[2023-09-22] MEDS: Insulin Lispro 100 UNIT/ML INSULN.PEN SC ×2 (13:24→17:01)
[2023-09-22 13:48] LABS: Bedside Glucose 197 mg/dL (74-106)
--- NOTE | 2023-09-22 14:16 | DS.PCM_ITS ---
Providers Date of Admission: 09/16/23 Primary Care Physician: Dr. Rios Downey, DO Consultations 09/20/23 11:34 Consult: Critical Care Clinical Nurse Specialist / Pulmonary Medicine Routine Consulting Provider: Pulmonary Medicine shane Barrow Reason for Consult: Continued elevated O2 requirement EMERGENT Consult: No MD Notified: Yes Date Notified: 09/20/23 Time Notified: 11:34 Method of Notification: Text Reason For Visit: HYPOXIA, ACUTE ON CHRONIC, CHF EXAC Diagnosis Discharge Diagnosis (1) Acute exacerbation of CHF (congestive heart failure): Status: Chronic Code(s): I50.9 - Heart failure, unspecified Qualifiers: Heart failure type: combined systolic and diastolic Qualified Code(s): I50.43 - Acute on chronic combined systolic (congestive) and diastolic (congestive) heart failure (2) CKD (chronic kidney disease) stage 4, GFR 15-29 ml/min: Status: Chronic Code(s): N18.4 - Chronic kidney disease, stage 4 (severe) (3) Chronic respiratory failure: Status: Chronic Code(s): J96.10 - Chronic respiratory failure, unspecified whether with hypoxia or hype rcapnia Qualifiers: Respiratory failure complication: hypoxia Qualified Code(s): J96.11 - Chronic respiratory failure with hypoxia (4) Aortic stenosis: Status: Acute Code(s): I35.0 - Nonrheumatic aortic (valve) stenosis Qualifiers: Cardiac valve disease etiology: nonrheumatic Qualified Code(s): I35.0 - Nonrheumatic aortic (valve) stenosis Plan 1. Acute on chronic hypoxic respiratory failure, mildly decompensated combined heart failure ?Most recent echo on 06/29/2023 with normal LV size, EF 40%, PASP 44 mmHg, otherwise unremarkable. BNP 179 on admit, appears to be around his baseline. ?Ambulatory pulse ox demonstrated need for 7 L with 3 L at rest. ? Appreciate pulmonology's assistance ? Continue with diuresis ? Monitor his renal function 2. Debility Secondary to age and significant comorbidities. Notably was just discharged from SNF on morning of 09/16, had been there since previous discharge on 08/22. ? PT/OT/case management following. Discussed at length with patient's granddaughter outside room on 09/18. Patient lives with granddaughter, was fairly functional at baseline prior to previous hospitalization from 08/18 to 08/22. Granddaughter then states that patient received poor care at rehab facility. She would like for patient to go home with home health care on discharge but recognizes that patient is weaker than his baseline. She states that patient has home health care set up already, and actually has palliative c are coming in to see the patient in the home this week. ? There is no interest in SNF so when stable will discharge home, both him and granddaughter recognize some of the safety issues involved with this decision 3. Delirium, concern for underlying dementia Suspect hospital delirium. Patient alert and oriented x3 on 09/17, then delirious on morning of 09/18 and not answering questions appropriately. Wore BiPAP overnight on 09/17, no concern for hypercarbia. No other significant lab abnormalities. Patient's granddaughter states that patient experienced this type of delirium on previous hospitalization as well. ?He is on olanzapine, will discontinue Seroquel. Can give IV Haldol as needed if patient has significant hyperactive delirium. ? Appears to have resolved and granddaughter seeking to remove guardianship Chronic medical conditions: ? Morbid obesity: BMI 43. Encouraged lifestyle modifications. ? Seizure disorder: Continue home Keppra. ? CKD stage IV: Admission BUN/creatinine of 53/2.12, at baseline. Monitor daily BMP. ? Paroxysmal A-fib: Continue home Eliquis. ? COPD with chronic hypoxic respiratory failure: Continue home inhalers. ? CAD s/p CABG: Continue home aspirin, statin. ? Type 2 diabetes: Holding home oral regimen, sliding scale insulin while inpatient. ? Anxiety/depression: Continue home sertraline and olanzapine. DVT: Eliquis Medications at Discharge Home Medications aspirin 81 mg tablet,delayed release 81 mg PO DAILY HEART HEALTH 07/11/16 multivitamin 1 ea PO DAILY HEALTH MAINTENANCE 07/11/16 insulin regular human 100 unit/mL injection solution 12 unit subcut BID DIABETES 07/24/16 cholecalciferol (vitamin D3) 25 mcg (1,000 unit) tablet 25 mcg PO DAILY SUPPLEMENT 10/26/16 sertraline 25 mg tablet 25 mg PO DAILY DEPRESSION 01/10/18 famotidine 20 mg tablet 20 mg PO DAILY GERD 11/13/19 olanzapine 2.5 mg tablet 2.5 mg PO QHS DEPRESSION 11/13/19 allopurinol 300 mg tablet 300 mg PO DAILY GOUT 12/07/21 apixaban 2.5 mg tablet (Eliquis) 2.5 mg PO BID BLOOD THINNER 10/07/22 calcitriol 0.25 mcg capsule 0.5 mcg PO MOWEFR SUPPLEMENT 10/07/22 isosorbide mononitrate 30 mg tablet,extended release 24 hr 30 mg PO DAILY HEART #90 tabs 02/01/23 potassium chloride 20 mEq tablet,extended release 20 meq PO DAILY potassium #1 TAB 07/03/23 psyllium husk (aspartame) 3 gram oral powder packet (Daily Fiber (psyllium- aspartame)) 1 packet PO BID constipation #0 ea 07/03/23 levetiracetam 100 mg/mL oral solution (Keppra) 500 mg PO BID 08/18/23 menthol 0.44 %-zinc oxide 20.6 % topical ointment (Calmoseptine) 1 applic topical BID 08/18/23 nystatin 100,000 unit/gram topical powder (Nystop) 1 applic topical BID 08/18/23 sennosides 8.6 mg-docusate sodium 50 mg tablet (2-in-1 Laxative) 1 tab-cap PO BID 08/18/23 amlodipine 2.5 mg tablet 2.5 mg PO DAILY 09/16/23 furosemide 20 mg tablet 20 mg PO DAILY 30 days #30 tabs 09/22/23 insulin NPH isoph U-100 human 100 unit/mL subcutaneous suspension 20 unit (0.2 mL) subcut BID DIABETES #1 mL 09/22/23 Hospital Course Operations None Procedures None Summary of Care Provided Minutes Spent on Discharge: 42 Hospital Course: Per HPI: The patient is an 83 y/o M w/ PMHx: CKD stage IV, HTN, HLD, Anxiety and Depression, Morbid Obesity, Seizure disorder, PAF, GERD, Combined Chronic CHF, AUTUMN on BIPAP, COPD with Chronic Hypoxic Respiratory Failure (4L NC), Former tobacco use, CAD s/p CABG x 4, Valvular Heart Disease s/p AVR, Diabetes mellitus type II, Anxiety and Depression, recent admission 08/18/23 with confusion/aphasia/L sided facial droop discharged on 08/22/23 with CVA ruled out with recommendation for ongoing outpatient evaluation for dementia who now re- presents to the [facility] ED on 09/16/23 with history of discharge from SNF today specifically [facility] with reportedly transition to home and at home patient noted to be hypoxic down to 77% with increased work of breathing, accessory muscle usage prompting ED transition. Even following transitioning back to bed in the ED he still notes having some mild dyspnea since ambulatory trial. He is unsure if he is weight gain or increased swelling. He does admit to orthopnea. Work-up in the ED included T95.5 Temporally, heart rate 56, BP 121/79, respiratory rate 18, 96% on 4 L increasing to 5 L chronically on 4L NC w/ ED ambulatory trial with 94%, sat down and dropped down into the 82/83%, increased to 5L., CBC with WBC 7.1, hemoglobin 10.1, MCV 101.9, platelet 130 without marked shift, BMP with chloride 112, BUN/creatinine 53/2.12, glucose 131, troponin 41, BNP 179, chest x-ray with cardiomegaly without any acute cardiopulmonary findings otherwise, EKG rate controlled atrial fibrillation without acute evidence of ischemia. Hospital Course: 1. Acute on chronic hypoxic respiratory failure secondary to acute on chronic combined CHF/CAD status post CABG/HTN/HLD/paroxysmal A-fib?83-year-old male presented to the hospital with increased shortness of breath. He does have chronic hypoxic respiratory failure secondary to COPD, he is wears 2 L of oxygen at rest and 4 L with ambulation. He was placed on IV Lasix for diuresis and he did have some improvement however he started developing some increased renal failure as this was discontinued however his shortness of breath worsened and at 1 point was requiring 7 to 8 L nasal cannula with ambulation. Pulmonology was consulted and recommended to restart IV diuresis which we did at twice daily dosing and he did steadily improve though his kidney function worsened to 2.75 creatinine. Today he requires 4 L nasal cannula at rest and 5 L with ambulation I discussed with the daughter at length about advance care planning for about 25 minutes given prognosis and possible outcomes. She requested that he still be discharged home with home health and palliative care as she does not want to send him back to a intermediate as she thinks that the intermediate made his condition worse. I discussed with him the plan for possible discharge today and they expressed understanding of the risk and benefits of going home today would like to go home today. We will plan on transitioning his torsemide back to Lasix because she felt that that is part of the reason that that he worsen. We will continue with his p.o. potassium with outpatient follow-up. 2. On admission he did appear to have some delirium which has resolved. She became his guardian secondary to a determination that he was incompetent however she feels that he has regained his confidence and is looking to remove her guardianship. 3. Seizure disorder, CKD stage IV, COPD with chronic hypoxic respiratory failure, type 2 diabetes, anxiety, depression are all chronic medical conditions which complicate his care. His home medications were continued where appropriate Physical Exam Narrative General: Alert, Oriented x3, Cooperative, No apparent distress HEENT: Atraumatic, PERRLA, EOMI, Normocephalic Oral: Moist Mucosa Neck: Supple, No JVD Lungs: Diminished, Normal air movement, No rhonchi, No wheeze, No rales Cardiovascular: Regular rate, Regular Rhythm, Normal S1, Normal S2, No murmurs Abdomen: Soft, Non Tender, Non-Distended, No Hepato-splenomegaly Extremities: Edema, Capillary Refill Less than 3 Seconds Skin: No rashes, No breakdown Musculoskeletal: No Tenderness to Palpation of Joints or Extremities Neurological: Moves all extremities, Sensory exam intact to light touch and pain Psych/Mental Status: Normal Affect, Appropriate Weight / BMI Weight Weight: 250 lb 7.122 oz Body Mass Index (BMI) 41.6 ABG / Lab / Microbiology Data 09/22/23 06:39 09/22/23 06:39 Laboratory: Laboratory Results - last 24 hr 09/21/23 16:40: POC Glucose 156 H 09/21/23 22:09: POC Glucose 158 H 09/22/23 06:39: WBC 7.7, RBC 3.03 L, Hgb 9.5 L, Hct 30.3 L, MCV 100.0 H, MCH 31.4, MCHC 31.4 L, RDW Std Deviation 57.0 H, RDW Coeff of Yeny 15.6 H, Plt Count 132 L, MPV 11.5, Immature Gran % (Auto) 0.300, Neut % (Auto) 68.7, Lymph % (Auto) 18.8 L, [place] % (Auto) 8.1, Eos % (Auto) 3.7, Baso % (Auto) 0.4, Absolute Neuts (auto) 5.3, Absolute Lymphs (auto) 1.44, Nucleated RBC % 0, Sodium 137, Potassium 4.4, Chloride 105, Carbon Dioxide 27.0, Anion Gap 5, BUN 73 H, Creatinine 2.75 H, Estim Creat Clear Calc 18.02, Est GFR (MDRD) Af Amer 29 L, Est GFR (MDRD) Non-Af 24 L, BUN/Creatinine Ratio 26.5 H, Glucose 129 H, Calcium 9.0 09/22/23 13:22: POC Glucose 197 H Microbiology: Microbiology 09/16/23 20:00 Mucosa - Nasopharyngeal Coronavirus COVID-19 PCR - Final 09/16/23 20:00 Mucosa - Nasopharyngeal Respiratory Panel (PCR) - Final D/C Instructions Discharge Diet: Low fat / Low cholesterol, 6 Cup Fluid Restriction and Carb Control Diet Call your doctor if you observe: Fever of 101 or Higher, Shortness of breath, Dizziness, Fainting spells, Swelling in the ankles, Chest pain and Increased palpitations (irregular heartbeat) Meaningful Use Info Meaningful Use Diagnoses (Choose all that apply): None applicable Discharge Plan Admission Admit Date/Time: 09/16/23 18:12 Attending Provider: Eladio Lucas Primary Care Provider: Rios Downey Consulting Providers: Patricia Alcantara; Woody Brunson; Aleksander Hilliard; Yaakov Love; Josh Cline; Michelle Peters; Otto Jerry; Tal Ashraf; Gosia Saenz [employer] Instructions Additional Instructions / Restrictions: Follow-up your PCP in 3 to 5 days to check your renal function. Discharge Orders/Prescriptions Prescriptions: New furosemide 20 mg Tablet 20 mg PO DAILY 30 Days Qty: 30 0RF Continued famotidine 20 mg tablet 20 mg PO DAILY olanzapine 2.5 mg tablet 2.5 mg PO QHS Eliquis 2.5 mg tablet 2.5 mg PO BID aspirin 81 MG tablet,delayed release (DR/EC) 81 mg PO DAILY Patient Comments: multivitamin 1 EACH tablet 1 ea PO DAILY insulin regular human 100 UNIT/ML solution 12 unit SC BID Patient Comments: afternoon and night cholecalciferol (vitamin D3) 1,000 UNIT tablet 25 mcg PO DAILY sertraline 25 MG tablet 25 mg PO DAILY calcitriol 0.25 mcg capsule 0.5 mcg PO MOWEFR allopurinol 300 mg tablet 300 mg PO DAILY amlodipine 2.5 mg tablet 2.5 mg PO DAILY insulin NPH isoph U-100 human 100 unit/mL suspension 20 unit SC BID Qty: 1 0RF Rx Instructions: 5 UNITS IN THE MORNING 5 UNITS AT BEDTIME Daily Fiber (psyllium-aspart) 3 gram Powder In Packet 1 packet PO BID Qty: 0 0RF potassium chloride 20 mEq tablet extended release 20 meq PO DAILY Qty: 1 0RF menthol-zinc oxide [Calmoseptine] 0.44-20.6 % ointment 1 applic topical BID nystatin [Nystop] 100,000 unit/gram powder 1 applic topical BID sennosides-docusate sodium [2-in-1 Laxative] 8.6-50 mg tablet 1 tab-cap PO BID levetiracetam [Keppra] 100 mg/mL solution 500 mg PO BID isosorbide mononitrate 30 mg tablet extended release 24 hr 30 mg PO DAILY Qty: 90 4RF Discontinued torsemide 20 mg tablet 20 mg PO DAILY Referrals / Follow Up: Rios Downey DO [Primary Care Provider] - 09/27/23 3:30 pm Disposition Disposition (needs filled in before D/C Order can be placed): Home Health Service Charges/Coding Visit Charges Inpatient E&M: 28306 Disch Hosp >30min Procedures Hospitalists Procedures: 37597 Advncd Care Plan 30 Min
[2023-09-22 15:00] VITALS: BP 132/75; PULSE 68; RESP 18; TEMP 36.6; O2SAT 95
--- NOTE | 2023-09-22 15:10 | CASEMGMT ---
Addendum entered by Rae Rossi 09/22/23 17:07: [facility] Palliative made aware pt is discharging home today. Original Note: ALAN WALTER NOTE: Pt being discharged home. Home O2 testing has been completed. Pt only needing 2 lm O2 @ rest and now needs 5 l/m w/exertion. Updated O2 script obtained and sent to [facility] via [facility]. ALAN WALTER to room. Pt sitting up in chair in room. Grand-dtr in room w/pt. They were made aware of O2 requirements and that [facility] updated. Grand-dtr states she has the portable o2 tank w/her for pt to go home on. [facility] able to accept pt. Pt and grand-dtr made aware. They deny having other discharge planning needs or concerns. Leti KONG RN, CM
--- NOTE | 2023-09-22 15:15 | CASEMGMT ---
Discharge Planning Discharge summary and instructions sent to Lisbeth NEGRETE. Adrianne Valenzuela, Discharge Planning Asst.
[2023-09-22] MEDS: Budesonide Respules 0.5 MG/2 ML AMPUL.NEB. INHALATION (15:44)
[2023-09-22 15:45] VITALS: PULSE 68; RESP 24; O2SAT 97
[2023-09-22 16:45] VITALS: BP 143/74; PULSE 66; RESP 18; TEMP 36.7; O2SAT 95
[2023-09-22 18:42] LABS: Bedside Glucose 182 mg/dL (74-106)
== END 2023-09-22 17:22 | disposition home health service (06) | DRG 291 ==
LOC: ED 18:04 → PCU 09-17 07:03
PROVIDERS: Hospitalist; Admitting Provider Family Medicine; Emergency Provider Student in an Organized Health Care Education/Training Program; Visit Provider Family Medicine
DX: I13.0 Hypertensive heart and chronic kidney disease with heart failure and stage 1 through stage 4 chronic kidney disease, or unspecified chronic kidney disease (principal); J96.21 Acute and chronic respiratory failure with hypoxia; I50.43 Acute on chronic combined systolic (congestive) and diastolic (congestive) heart failure; F05 Delirium due to known physiological condition; Z68.41 Body mass index [BMI] 40.0-44.9, adult; N18.4 Chronic kidney disease, stage 4 (severe); E11.22 Type 2 diabetes mellitus with diabetic chronic kidney disease; G40.909 Epilepsy, unspecified, not intractable, without status epilepticus; E66.01 Morbid (severe) obesity due to excess calories; I48.0 Paroxysmal atrial fibrillation; F03.90 Unspecified dementia, unspecified severity, without behavioral disturbance, psychotic disturbance, mood disturbance, and anxiety; J44.9 Chronic obstructive pulmonary disease, unspecified; F32.A Depression, unspecified; I35.0 Nonrheumatic aortic (valve) stenosis; E78.5 Hyperlipidemia, unspecified; K21.9 Gastro-esophageal reflux disease without esophagitis; I25.10 Atherosclerotic heart disease of native coronary artery without angina pectoris; G47.33 Obstructive sleep apnea (adult) (pediatric); F41.9 Anxiety disorder, unspecified; Z66 Do not resuscitate; Z51.5 Encounter for palliative care; Z95.1 Presence of aortocoronary bypass graft; Z95.2 Presence of prosthetic heart valve; Z99.81 Dependence on supplemental oxygen; Z79.01 Long term (current) use of anticoagulants; Z79.82 Long term (current) use of aspirin; Z79.84 Long term (current) use of oral hypoglycemic drugs; Z79.899 Other long term (current) drug therapy; Z87.891 Personal history of nicotine dependence
CPT/HCPCS: 36415; 71045; 80048; 80053; 82962; 83735; 83880; 84145; 84484; 85025; 87633; 87635; 93005; 94002; 94003; 94640; 94668; 94762; 97162; 97165; 97530; 97535; 99285; A4216; J1940

== ENCOUNTER 2023-09-28 14:48 | Outpatient (CLI) | payer MEDICARE, OTHER, SELFPAY ==
[2023-09-28 15:25] LABS: Absolute Lymphocyte Count 1.28 X10^3/uL (0.83-4.51); Absolute Neutrophil Count 5.3 X10^3/uL (2.0-7.7); Basophil# 0.03 X10^3/uL; Basophil% 0.4 % (0-1); Eosinophil# 0.15 X10^3/uL; Eosinophils% 2.1 % (0-5); Hematocrit 33.1 % (40-54); Hemoglobin 10.2 g/dL (13.0-16.5); Lymphocyte # 1.28 X10^3/ul (0.83-4.51); Lymphocyte % 17.9 % (19-41); Mean Corp Hgb Conc 30.8 g/dL (32-36); Mean Corpuscular Hgb 31.1 pg (27.0-32.0); Mean Corpuscular Volume 100.9 fL (80-94); Mean Platelet Vol. 10.7 fl (6.2-12.0); Monocyte# 0.39 X10^3/uL; Monocyte% 5.4 % (0-10); NRBC Flagged by Analyzer 0 % (0-5); Neutrophil % 73.9 % (47-70); Platelet Count 147 K/mm3 (150-450); RBC Distribution Width CV 15.2 % (11.6-14.6); RBC Distribution Width SD 55.8 fl (35.1-43.9); Red Blood Count 3.28 M/mm3 (4.6-6.2); White Blood Count 7.2 K/mm3 (4.4-11.0)
[2023-09-28 15:46] LABS: Albumin, Serum 3.1 g/dL (3.2-5.0); BUN 57 mg/dL (7-18); BUN/Creat Ratio 24.4 RATIO (10-20); Calcium,Total 9.3 mg/dL (8.5-10.1); Chloride 110 mmol/L (98-107); Creatinine, Serum 2.34 mg/dL (0.70-1.30); EST Glomerular Filtration Rate 29 mL/min (>60); Est Glom Filt Rate - Afr Amer 35 mL/min (>60); Ferritin 175 ng/mL (26-388); Glucose 113 mg/dL (74-106); Iron 49 ug/dL (65-175); Iron Binding Capacity,Total 257 ug/dL (250-450); PERCENT IRON SATURATION 19.1 % (15.0-55.0); Phosphorus 3.5 mg/dL (2.5-4.9); Potassium 4.7 mmol/L (3.5-5.1); Sodium Level 141 mmol/L (136-145)
[2023-09-28 15:55] VITALS: BP 154/72; PULSE 54; RESP 18; TEMP 36.6; O2SAT 96; BMI 41.4
[2023-09-28] MEDS: Epoetin Alfa epbx 10,000 UNITS/ML 7500 UNIT SC (16:01)
[2023-09-29 08:28] LABS: PTHIN 33.4 pg/mL (18.4-80.1)
== END 2023-09-28 14:49 | disposition home or self-care (01) ==
LOC: MEDOUTP 14:48
PROVIDERS: Referring Provider Internal Medicine Nephrology; Visit Provider Internal Medicine Nephrology
DX: N18.5 Chronic kidney disease, stage 5 (principal); D63.1 Anemia in chronic kidney disease
CPT/HCPCS: 96374; 36415; 80069; 82728; 83540; 83550; 83970; 85025; Q5106

== ENCOUNTER 2023-10-26 14:49 | Outpatient (CLI) | payer MEDICARE, OTHER, SELFPAY ==
[2023-10-26 15:15] LABS: Absolute Lymphocyte Count 1.33 X10^3/uL (0.83-4.51); Absolute Neutrophil Count 3.7 X10^3/uL (2.0-7.7); Basophil# 0.04 X10^3/uL; Basophil% 0.7 % (0-1); Eosinophil# 0.28 X10^3/uL; Eosinophils% 4.8 % (0-5); Hematocrit 37.9 % (40-54); Hemoglobin 11.8 g/dL (13.0-16.5); Lymphocyte # 1.33 X10^3/ul (0.83-4.51); Lymphocyte % 22.7 % (19-41); Mean Corp Hgb Conc 31.1 g/dL (32-36); Mean Corpuscular Hgb 30.6 pg (27.0-32.0); Mean Corpuscular Volume 98.4 fL (80-94); Mean Platelet Vol. 10.3 fl (6.2-12.0); Monocyte# 0.51 X10^3/uL; Monocyte% 8.7 % (0-10); NRBC Flagged by Analyzer 0 % (0-5); Neutrophil # 3.68 X10^3/uL (2.7-7.7); Neutrophil % 62.8 % (47-70); Platelet Count 162 K/mm3 (150-450); RBC Distribution Width CV 14.3 % (11.6-14.6); RBC Distribution Width SD 51.5 fl (35.1-43.9); Red Blood Count 3.85 M/mm3 (4.6-6.2); White Blood Count 5.9 K/mm3 (4.4-11.0)
[2023-10-26 15:45] LABS: Albumin, Serum 3.2 g/dL (3.2-5.0); BUN 55 mg/dL (7-18); BUN/Creat Ratio 23.1 RATIO (10-20); Calcium,Total 9.3 mg/dL (8.5-10.1); Chloride 109 mmol/L (98-107); Creatinine, Serum 2.38 mg/dL (0.70-1.30); EST Glomerular Filtration Rate 28 mL/min (>60); Est Glom Filt Rate - Afr Amer 34 mL/min (>60); Ferritin 177 ng/mL (26-388); Glucose 176 mg/dL (74-106); Iron 41 ug/dL (65-175); Iron Binding Capacity,Total 243 ug/dL (250-450); PERCENT IRON SATURATION 16.9 % (15.0-55.0); Phosphorus 2.9 mg/dL (2.5-4.9); Potassium 4.5 mmol/L (3.5-5.1); Sodium Level 141 mmol/L (136-145)
== END 2023-10-26 14:50 | disposition home or self-care (01) ==
LOC: MEDOUTP 14:49
PROVIDERS: Referring Provider Internal Medicine Nephrology; Visit Provider Internal Medicine Nephrology
DX: N18.5 Chronic kidney disease, stage 5 (principal); D63.1 Anemia in chronic kidney disease
CPT/HCPCS: 36415; 80069; 82728; 83540; 83550; 85025

== ENCOUNTER 2023-11-23 14:58 | Outpatient (CLI) | payer MEDICARE, OTHER, SELFPAY ==
[2023-11-23 15:16] LABS: Absolute Neutrophil Count 5.1 X10^3/uL (2.0-7.7); Basophil# 0.04 X10^3/uL; Basophil% 0.5 % (0-1); Hematocrit 31.8 % (40-54); Hemoglobin 10.2 g/dL (13.0-16.5); Lymphocyte % 20.2 % (19-41); Mean Corp Hgb Conc 32.1 g/dL (32-36); Mean Corpuscular Hgb 31.6 pg (27.0-32.0); Mean Corpuscular Volume 98.5 fL (80-94); Mean Platelet Vol. 10.2 fl (6.2-12.0); Monocyte% 6.7 % (0-10); NRBC Flagged by Analyzer 0 % (0-5); Neutrophil # 5.06 X10^3/uL (2.7-7.7); Neutrophil % 68.1 % (47-70); Platelet Count 134 K/mm3 (150-450); RBC Distribution Width CV 15.7 % (11.6-14.6); RBC Distribution Width SD 55.5 fl (35.1-43.9); Red Blood Count 3.23 M/mm3 (4.6-6.2); White Blood Count 7.4 K/mm3 (4.4-11.0)
[2023-11-23] MEDS: Epoetin Alfa-EPBX 20,000 unit/ml 5000 UNIT SC (15:37)
[2023-11-23 15:38] LABS: Albumin, Serum 2.9 g/dL (3.2-5.0); BUN 65 mg/dL (7-18); BUN/Creat Ratio 26.6 RATIO (10-20); Calcium,Total 9.8 mg/dL (8.5-10.1); Chloride 110 mmol/L (98-107); Creatinine, Serum 2.44 mg/dL (0.70-1.30); EST Glomerular Filtration Rate 27 mL/min (>60); Est Glom Filt Rate - Afr Amer 33 mL/min (>60); Ferritin 208 ng/mL (26-388); Glucose 195 mg/dL (74-106); Iron 57 ug/dL (65-175); Iron Binding Capacity,Total 223 ug/dL (250-450); PERCENT IRON SATURATION 25.6 % (15.0-55.0); Phosphorus 3.1 mg/dL (2.5-4.9); Potassium 4.4 mmol/L (3.5-5.1); Sodium Level 139 mmol/L (136-145)
[2023-11-23 15:42] VITALS: BP 101/53; PULSE 61; RESP 16; TEMP 36.3; BMI 41.5
== END 2023-11-23 14:59 | disposition home or self-care (01) ==
LOC: MEDOUTP 14:58
PROVIDERS: Referring Provider Internal Medicine Nephrology; Visit Provider Internal Medicine Nephrology
DX: N18.5 Chronic kidney disease, stage 5 (principal); D63.1 Anemia in chronic kidney disease
CPT/HCPCS: 36415; 80069; 82728; 83540; 83550; 85025; 96372; Q5106

== ENCOUNTER → 2023-12-02 | Outpatient (CLI) | payer MEDICARE, OTHER, SELFPAY ==
--- OUTSIDE RECORDS SUMMARY | 2023-12-02 15:50 | XMS RPT_ITS | CCD ---
Author Name Unknown Address [address] [place] [address] Organization [facility] Care Team Providers Care Edge Grinder Name Role Phone SOBEIDA MIRANDA DO Primary Care Physician SOBEIDA MIRANDA DO Primary Care Unavailable ALY BAIG, JENNIFER Tobias Attending Unavailable Allergies Allergy Classification Reported Allergen(s) Allergy Type Date of Onset Reaction(s) Facility (1 source) Penicillins; Translations: [penicillins] Drug allergy Hives [facility] (1 source) Pravastatin; Translations: [pravastatin] Drug Allergy Cramp (finding) [facility] Medications Current Medications Medication Drug Class(es) Dates Sig (Normalized) Sig (Original) allopurinol 300 mg oral tablet (1 source) Xanthine Oxidase Inhibitor Start: 09-17-2022 allopurinol 300 mg oral tablet Dose : 150 mg = 0.5 tab(s), Oral, qDay, # 45 tab(s), 1 Refill(s), Pharmacy: [facility], 161.5, cm, 07/10/22 9:52:00 EDT, Height, kg, 07/10/22 9:52:00 EDT, Dosing Weight Start Date: 09/17/22 Status: Ordered apixaban 2.5 mg oral tablet (1 source) Factor Xa Inhibitor Start: 08-17-2022 Eliquis 2.5 mg oral tablet Dose : 2.5 mg = 1 tab(s), Oral, BID, # 180 tab(s), 3 Refill(s), Pharmacy: [facility], 161.5, cm, 07/10/22 9:52:00 EDT, Height, 120.1, kg, 07/10/22 9:52:00 EDT, Dosing Weight Start Date: 08/17/22 Status: Ordered aspirin 81 mg delayed release oral tablet (1 source) Platelet Aggregation Inhibitor, Nonsteroidal Anti-inflammatory Drug Start: 06-15-2019 aspirin 81 mg oral delayed release tablet Dose : 81 mg = 1 tab(s), Oral, qDay, # 30 tab(s), 0 Refill(s) Start Date: 06/15/19 Status: Ordered atorvastatin 40 mg oral tablet (1 source) HMG-CoA Reductase Inhibitor Start: 03-25-2023 atorvastatin 40 mg oral tablet Dose : 40 mg = 1 tab(s), Oral, qDay, # 90 tab(s), 1 Refill(s), Pharmacy: [facility], 165, cm, 02/17/23 9:03:00 EDT, Height, kg, 02/17/23 9:03:00 EDT, Dosing Weight Start Date: 03/25/23 Status: Ordered calcitriol 0.19405 mg oral capsule (1 source) Vitamin D3 Analog Start: 01-21-2020 calcitriol 0.25 mcg oral capsule Dose : 0.25 mcg = 1 cap(s), Oral, Daily, # 30 cap(s), 0 Refill(s) Start Date: 01/21/20 Status: Ordered famotidine 20 mg oral tablet (1 source) Histamine-2 Receptor Antagonist Start: 06-15-2019 famotidine 20 mg oral tablet Dose : 20 mg = 1 tab(s), Oral, qDay, 0 Refill(s) Start Date: 06/15/19 Status: Ordered furosemide 40 mg oral tablet (1 source) Loop Diuretic Start: 06-15-2019 Lasix 40 mg oral tablet Dose : 40 mg = 1 tab(s), Oral, qDay, 0 Refill(s) Start Date: 06/15/19 Status: Ordered insulin isophane, human 100 unt/ml injectable suspension (1 source) Start: 06-15-2019 inject 1 dose by subcutaneous injection twice daily NovoLIN N 100 units/mL 10 mL vial Dose : 25 unit(s) =, Subcutaneous, BID, 0 Refill(s) Start Date: 06/15/19 Status: Ordered 24 hr isosorbide mononitrate 30 mg extended release oral tablet (1 source) Nitrate Vasodilator Start: 06-15-2019 isosorbide mononitrate 30 mg oral tablet, extended release Dose : 30 mg = 1 tab(s), Oral, qAM, # 30 tab(s), 0 Refill(s) Start Date: 06/15/19 Status: Ordered levETIRAcetam 500 mg oral tablet (1 source) Start: 03-25-2023 levETIRAcetam 500 mg oral tablet Dose : 250 mg = 0.5 tab(s), Oral, BID, # 90 tab(s), 1 Refill(s), Pharmacy: [facility], 165, cm, 02/17/23 9:03:00 EDT, Height, kg, 02/17/23 9:03:00 EDT, Dosing Weight Start Date: 03/25/23 Status: Ordered metoprolol tartrate 25 mg oral tablet (1 source) beta-Adrenergic Karyn Start: 03-25-2023 metoprolol tartrate 25 mg oral tablet Dose : 12.5 mg = 0.5 tab(s), Oral, BID, # 90 tab(s), 1 Refill(s), Pharmacy: [facility], 165, cm, 02/17/23 9:03:00 EDT, Height, kg, 02/17/23 9:03:00 EDT, Dosing Weight Start Date: 03/25/23 Status: Ordered Multivitamin preparation (1 source) Start: 06-15-2019 take 1 tablet by mouth once daily Multivitamin Dose = 1 tab(s), Oral, Daily, 0 Refill(s) Start Date: 06/15/19 Status: Ordered nitroglycerin 0.3 mg sublingual tablet (1 source) Nitrate Vasodilator Start: 04-30-2021 Nitrostat 0.3 mg sublingual tablet Dose : 0.3 mg = 1 tab(s), Sublingual, q5min, PRN for chest pain, If chest pain not relieved in 5 minutes after first dose, seek immediate medical attention, # 25 tab(s), 11 Refill(s), Pharmacy: [id number], 161, cm, 04/30/21 16:15:00 EDT, He... Start Date: 04/30/21 Status: Ordered NovoLIN R FlexPen (1 source) Start: 08-15-2020 inject 25 [IU] by subcutaneous injection twice daily NovoLIN R FlexPen See Instructions, Subcutaneous 25 units twice daily, 0 Refill(s) Start Date: 08/15/20 Status: Ordered OLANZapine 2.5 mg oral tablet (1 source) Atypical Antipsychotic Start: 03-25-2023 ZyPREXA 2.5 mg oral tablet Dose : 2.5 mg = 1 tab(s), Oral, qHS, # 90 tab(s), 1 Refill(s), Pharmacy: [facility], 165, cm, 02/17/23 9:03:00 EDT, Height, kg, 02/17/23 9:03:00 EDT, Dosing Weight Start Date: 03/25/23 Status: Ordered sertraline 25 mg oral tablet (1 source) Serotonin Reuptake Inhibitor Start: 03-25-2023 sertraline 25 mg oral tablet Dose : 25 mg = 1 tab(s), Oral, Daily, # 90 tab(s), 1 Refill(s), Pharmacy: [facility], 165, cm, 02/17/23 9:03:00 EDT, Height, kg, 02/17/23 9:03:00 EDT, Dosing Weight Start Date: 03/25/23 Status: Ordered Problems Problem Classification Problem Date Documented Date Episodic/Chronic Calculus of urinary tract (2 sources) Unspecified renal colic; Translations: [Unspecified renal colic] Onset: 05-12-2023 Episodic Cardiac dysrhythmias (1 source) Paroxysmal atrial fibrillation 06-08-2022 Chronic Chronic kidney disease (1 source) Chronic kidney disease stage 4 10-06-2022 Chronic Chronic obstructive pulmonary disease and bronchiectasis (1 source) Chronic obstructive lung disease 06-08-2022 Chronic Complication of device; implant or graft (1 source) 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 Chronic Congestive heart failure; nonhypertensive (2 sources) Diastolic heart failure; Translations: [Heart failure with reduced ejection fraction] 06-08-2022 Chronic Deficiency and other anemia (1 source) Anemia 01-21-2020 Episodic Deficiency and other anemia (1 source) Normocytic anemia 01-25-2023 Episodic Delirium, dementia, and amnestic and other cognitive disorders (1 source) Dementia 04-04-2020 Chronic Diabetes mellitus without complication (3 sources) Type 2 diabetes mellitus 06-08-2022 Chronic Disorders of lipid metabolism (1 source) Mixed hyperlipidemia 02-22-2020 Chronic Essential hypertension (1 source) Benign essential hypertension 04-04-2020 Chronic Mood disorders (1 source) Recurrent major depression 01-25-2023 Chronic Other aftercare (1 source) Long-term current use of anticoagulant 01-25-2023 Episodic Other and ill-defined cerebrovascular disease (1 source) Cerebrovascular disease 10-05-2019 Chronic Other nutritional; endocrine; and metabolic disorders (1 source) Body mass index 40+ - severely obese 01-25-2023 Chronic Residual codes; unclassified (1 source) Denture present 01-25-2023 Episodic Respiratory failure; insufficiency; arrest (adult) (1 source) Dependence on supplemental oxygen 01-25-2023 Chronic Spondylosis; intervertebral disc disorders; other back problems (1 source) Low back pain 05-12-2023 Episodic Results Test Name Value Interpretation Reference Range Facil ity Encounters Encounter Date Encounter Type Care Provider Facility Start: 05-12-2023 End: 05-17-2023 ambulatory SOBEIDA MIRANDA Facility:B Start: 05-12-2023 End: 05-16-2023 Outreach Lab JENNIFER LU MD [facility] Procedures Date Procedure Procedure Detail Performing Clinician Start: 01-13-2017 Cholecystectomy JENNIFER LU MD Start: 02-24-2016 Coronary bypass lilliana t angiography JENNIFER LU MD History of coronary artery bypass grafting S/P CABG x 4 JENNIFER LU MD Immunizations Immunization Date Immunization Notes Care Provider [facility] 10-06-2022 influenza, high dose seasonal, preservative-free JENNIFER LU MD [facility] 03-16-2022 COVID-19, mRNA, LNP- S, PF, 100 mcg or 50 mcg dose; Translations: [Moderna COVID-19 Vaccine] JENNIFER LU MD [facility] 12-03-2021 COVID-19, mRNA, LNP- S, PF, 100 mcg or 50 mcg dose; Translations: [Moderna COVID-19 Vaccine] JENNIFER LU MD [facility] 09-17-2021 influenza, high dose seasonal, preservative-free; Translations: [Fluad Quadrivalent PF ] JENNIFER LU MD [facility] 01-20-2021 COVID-19, mRNA, LNP- S, PF, 100 mcg or 50 mcg dose; Translations: [Moderna COVID-19 Vaccine] JENNIFER LU MD [facility] 12-25-2020 SARS-CoV-2 (COVID-19 ) mRNA-1273 vaccine JENNIFER LU MD [facility] 08-15-2020 influenza, injectabl e, quadrivalent, preservative free; Translations: [Fluarix PF Quadrivalent ] JENNIFER LU MD [facility] 09-13-2019 influenza, injectabl e, quadrivalent, preservative free; Translations: [Fluarix PF Quadrivalent ] JENNIFER LU MD [facility] 09-04-2018 influenza virus vacc ine, unspecified formulation JENNIFER LU MD [facility] 09-21-2017 influenza virus vacc ine, unspecified formulation JENNIFER LU MD [facility] 08-24-2016 influenza virus vacc ine, unspecified formulation JENNIFER LU MD [facility] 07-29-2016 influenza virus vacc ine, unspecified formulation JENNIFER LU MD [facility] 10-03-2015 influenza virus vacc ine, unspecified formulation JENNIFER LU MD [facility] 03-03-2015 pneumococcal conjuga te vaccine, 13 valent JENNIFER LU MD [facility] 10-09-2014 influenza virus vacc ine, unspecified formulation JENNIFER LU MD [facility] 09-17-2013 influenza virus vacc ine, unspecified formulation JENNIFER LU MD [facility] 10-02-2012 pneumococcal polysaccharide vaccine, 23 valent JENNIFER LU MD [facility] 08-04-2011 tetanus toxoid, redu steph diphtheria toxoid, and acellular pertussis vaccine, adsorbed JENNIFER LU MD [facility] 08-28-2006 pneumococcal polysaccharide vaccine, 23 vallucy LU MD [facility] Payers Date Payer Category Payer Medicare [id number] 2023 Unknown [id number] 1940 Unknown [id number] Social History Date Type Detail Facility Start: 06-15-2019 Tobacco smoking status Ex-smoker (fi nding) [facility] Clinical Note 05-14-2023 Note Date & Type Note Facility 05-14-2023 Note . MICRO - Microbiology PROCEDURE: Urine Culture [*1] SOURCE: Urine, Clean Catch BODY SITE: COLLECTED DATE/TIME: 05/12/2023 12:46 EDT RECEIVED DATE/TIME: 05/12/2023 19:48 EDT START DATE/TIME: 05/12/2023 19:48 EDT FREE TEXT SOURCE: FINAL REPORTS Final Report [] Verified Date/Time/Personnel: 05/14/2023 07:30 EDT <10,000 cfu/ml. No Significant growth. Sensitivity not indicated. PRELIMINARY REPORTS Preliminary Report [] Verified Date/Time/Personnel: 05/13/2023 10:03 EDT No growth to date Performing Locations *1: This test was performed at: [facility], [address] [place] [address], [facility] , [facility] ([place]) Evaluation + Plan note Laboratory Note Date & Type Note Facility Evaluation + Plan note Future Appointments Appointment Date:07/25/2024 04:00:00 PM Scheduled Provider:SOBEIDA MIRANDA DO Location:[facility] Appointment Type: OV Future Scheduled TestsProstate Specific Antigen 06/08/22Thyroid Stimulating Hormone 06/08/22Free T4 06/08/22Lipid Profile 06/08/22Hepatitis C Antibody IgG 06/08/22Microalbumin Level Urine 06/08/22Prothrombin Time - Panel 06/08/22Prothrombin Time - Panel 07/10/22Prothrombin Time - Panel 07/14/22Vitamin D Level 06/08/22Complete Metabolic Panel 06/08/22 [facility] Hospital course Narrative Note Date & Type Note Facility Hospital course Narrative No data available for this section [facility] Hospital Discharge instructions Note Date & Type Note Facility Hospital Discharge instructions No data available for this section [facility] Progress note Note Date & Type Note Facility Progress note No data available for this section [facility] Summary Purpose Family History No Family History Records Found Advance Directives No Advanced Directives Records Found Additional Source Comments Patient Care team informatio n (unrecognized section and content) Care Team Personnel Name: MACO HICKEY MD Position: P3 Physician - Nephrology Member Role: Station Cleaning Porter Address: Address: [address] [place] [address] [facility] [place], [place] [address] Name: RODRIGO MÁRQUEZ APRN-EDUCATION ASSISTANT Member Role: Final Assembly And Packing Supervisor Address: Address: [address] [place] [address] [place] Name: ANTHONY DOLAN EDUCATION ASSISTANT Member Role: Line Maintenance Address: Address: [address] [place] [address]- Name: SONNY LOVE MD Position: P3 Physician - Endocrinology Member Role: Lead Mason Tender Address: Address: [address] [place] [address]- Name: SOBEIDA MIRANDA DO Position: P4 Physician - Primary Care Member Role: Primary Care Physician Address: Address: [address] [place] [address]- [place] Care Team Related Persons Name: VAHE ALARCON (unrecognized sect ion and content) No Status Records Found INFORMATION SOURCE (unrecogn ized section and content) FOR RECORDS PERTAINING TO PATIENTS WHO ARE OR HAVE BEEN ENROLLED IN A CHEMICAL DEPENDENCY/SUBSTANCEABUSE PROGRAM, SOME INFORMATION MAY BE OMITTED. This clinical summary was aggregated from multiple sources. Caution should be exercised in using it in the provision of clinical care. This summary normalizes information from multiple sources, and as a consequence, information in this document may materially change the coding, format and clinical context of patient data. In addition, data may be omitted in some cases. CLINICAL DECISIONS SHOULD BE BASED ON THE PRIMARY CLINICAL RECORDS. [facility] [employer] provides no warranty or guarantee of the accuracy or completeness of information in this document.
[2023-12-02 18:00] LABS: Absolute Lymphocyte Count 1.49 X10^3/uL (0.83-4.51); Absolute Neutrophil Count 6.6 X10^3/uL (2.0-7.7); Basophil# 0.03 X10^3/uL; Basophil% 0.3 % (0-1); Eosinophil# 0.08 X10^3/uL; Eosinophils% 0.9 % (0-5); Hematocrit 35.2 % (40-54); Hemoglobin 10.9 g/dL (13.0-16.5); Lymphocyte # 1.49 X10^3/ul (0.83-4.51); Lymphocyte % 17.1 % (19-41); Mean Corpuscular Hgb 31.3 pg (27.0-32.0); Mean Corpuscular Volume 101.1 fL (80-94); Mean Platelet Vol. 10.8 fl (6.2-12.0); Monocyte# 0.48 X10^3/uL; Monocyte% 5.5 % (0-10); NRBC Flagged by Analyzer 0 % (0-5); Neutrophil # 6.58 X10^3/uL (2.7-7.7); Neutrophil % 75.9 % (47-70); Platelet Count 162 K/mm3 (150-450); RBC Distribution Width CV 15.8 % (11.6-14.6); RBC Distribution Width SD 58.1 fl (35.1-43.9); Red Blood Count 3.48 M/mm3 (4.6-6.2); White Blood Count 8.7 K/mm3 (4.4-11.0)
[2023-12-02 18:24] LABS: Albumin, Serum 3.1 g/dL (3.2-5.0); BUN 43 mg/dL (7-18); BUN/Creat Ratio 17.5 RATIO (10-20); Chloride 111 mmol/L (98-107); Creatinine, Serum 2.46 mg/dL (0.70-1.30); EST Glomerular Filtration Rate 27 mL/min (>60); Est Glom Filt Rate - Afr Amer 33 mL/min (>60); Ferritin 118 ng/mL (26-388); Glucose 131 mg/dL (74-106); Iron 70 ug/dL (65-175); Iron Binding Capacity,Total 233 ug/dL (250-450); Phosphorus 3.3 mg/dL (2.5-4.9); Potassium 4.7 mmol/L (3.5-5.1); Sodium Level 142 mmol/L (136-145); Uric Acid 5.5 mg/dL (3.5-7.2)
[2023-12-05 09:33] LABS: PTHIN 26.3 pg/mL (18.4-80.1)
== END | disposition home or self-care (01) ==
LOC: MTLAB 15:30
PROVIDERS: Referring Provider Internal Medicine Nephrology; Visit Provider Internal Medicine Nephrology
DX: I12.9 Hypertensive chronic kidney disease with stage 1 through stage 4 chronic kidney disease, or unspecified chronic kidney disease (principal); N18.4 Chronic kidney disease, stage 4 (severe); D63.1 Anemia in chronic kidney disease
CPT/HCPCS: 36415; 80069; 82570; 82728; 83540; 83550; 83970; 84156; 84550; 85025

== ENCOUNTER 2023-12-21 14:54 | Outpatient (CLI) | payer MEDICARE, OTHER, SELFPAY ==
[2023-12-21 15:24] LABS: Absolute Lymphocyte Count 2.33 X10^3/uL (0.83-4.51); Absolute Neutrophil Count 3.5 X10^3/uL (2.0-7.7); Basophil# 0.02 X10^3/uL; Basophil% 0.3 % (0-1); Eosinophil# 0.13 X10^3/uL; Hematocrit 35.8 % (40-54); Lymphocyte # 2.33 X10^3/ul (0.83-4.51); Lymphocyte % 36.6 % (19-41); Mean Corp Hgb Conc 30.7 g/dL (32-36); Mean Corpuscular Hgb 30.1 pg (27.0-32.0); Mean Corpuscular Volume 98.1 fL (80-94); Mean Platelet Vol. 10.3 fl (6.2-12.0); Monocyte# 0.39 X10^3/uL; Monocyte% 6.1 % (0-10); NRBC Flagged by Analyzer 0 % (0-5); Neutrophil # 3.48 X10^3/uL (2.7-7.7); Neutrophil % 54.8 % (47-70); Platelet Count 122 K/mm3 (150-450); RBC Distribution Width CV 14.6 % (11.6-14.6); RBC Distribution Width SD 52.2 fl (35.1-43.9); Red Blood Count 3.65 M/mm3 (4.6-6.2); White Blood Count 6.4 K/mm3 (4.4-11.0)
[2023-12-21 15:41] LABS: Albumin, Serum 3.1 g/dL (3.2-5.0); BUN 48 mg/dL (7-18); BUN/Creat Ratio 18.7 RATIO (10-20); Calcium,Total 9.8 mg/dL (8.5-10.1); Chloride 110 mmol/L (98-107); Creatinine, Serum 2.57 mg/dL (0.70-1.30); EST Glomerular Filtration Rate 26 mL/min (>60); Est Glom Filt Rate - Afr Amer 31 mL/min (>60); Ferritin 125 ng/mL (26-388); Glucose 89 mg/dL (74-106); Iron 70 ug/dL (65-175); Iron Binding Capacity,Total 251 ug/dL (250-450); PERCENT IRON SATURATION 27.9 % (15.0-55.0); Phosphorus 3.7 mg/dL (2.5-4.9); Potassium 4.4 mmol/L (3.5-5.1); Sodium Level 137 mmol/L (136-145)
--- OUTSIDE RECORDS SUMMARY | 2023-12-21 16:06 | XMS RPT_ITS | CCD ---
Author Name Unknown Address [address] [place] [address] Organization [facility] Care Team Providers Care Fish Technologist Name Role Phone SOBEIDA MIRANDA DO Primary Care Physician SOBEIDA MIRANDA DO Primary Care Unavailable ALY BAIG, JENNIFER Tobias Attending Unavailable Allergies Allergy Classification Reported Allergen(s) Allergy Type Date of Onset Reaction(s) Facility (1 source) Penicillins; Translations: [penicillins] Drug allergy Hives [facility] (1 source) Pravastatin; Translations: [pravastatin] Drug Allergy Cramp (finding) [facility] Medications Current Medications Medication Drug Class(es) Dates Sig (Normalized) Sig (Original) allopurinol 300 mg oral tablet (1 source) Xanthine Oxidase Inhibitor Start: 09-17-2022 allopurinol 300 mg oral tablet Dose : 150 mg = 0.5 tab(s), Oral, qDay, # 45 tab(s), 1 Refill(s), Pharmacy: [facility], 161.5, cm, 07/10/22 9:52:00 EDT, Height, kg, 07/10/22 9:52:00 EDT, Dosing Weight Start Date: 09/17/22 Status: Ordered apixaban 2.5 mg oral tablet (1 source) Factor Xa Inhibitor Start: 08-17-2022 Eliquis 2.5 mg oral tablet Dose : 2.5 mg = 1 tab(s), Oral, BID, # 180 tab(s), 3 Refill(s), Pharmacy: [facility], 161.5, cm, 07/10/22 9:52:00 EDT, Height, [...] qDay, # 90 tab(s), 1 Refill(s), Pharmacy: [facility], 165, cm, 02/17/23 9:03:00 EDT, Height, kg, 02/17/23 9:03:00 EDT, Dosing Weight Start Date: 03/25/23 Status: Ordered calcitriol 0.67526 mg oral capsule (1 source) Vitamin D3 [...] BID, # 90 tab(s), 1 Refill(s), Pharmacy: [facility], 165, cm, 02/17/23 9:03:00 EDT, Height, kg, 02/17/23 9:03:00 EDT, Dosing Weight Start Date: 03/25/23 Status: Ordered metoprolol tartrate 25 mg oral tablet (1 source) beta-Adrenergic Karyn Start: 03-25-2023 metoprolol tartrate 25 mg oral tablet Dose : 12.5 mg = 0.5 tab(s), Oral, BID, # 90 tab(s), 1 Refill(s), Pharmacy: [facility], 165, cm, 02/17/23 [...] attention, # 25 tab(s), 11 Refill(s), Pharmacy: [id number], 161, cm, 04/30/21 16:15:00 EDT, [...] qHS, # 90 tab(s), 1 Refill(s), Pharmacy: [facility], 165, cm, 02/17/23 9:03:00 EDT, Height, kg, 02/17/23 9:03:00 EDT, Dosing Weight Start Date: 03/25/23 Status: Ordered sertraline 25 mg oral tablet (1 source) Serotonin Reuptake Inhibitor Start: 03-25-2023 sertraline 25 mg oral tablet Dose : 25 mg = 1 tab(s), Oral, Daily, # 90 tab(s), 1 Refill(s), Pharmacy: [facility], 165, cm, 02/17/23 [...] End: 05-16-2023 Outreach Lab JENNIFER LU MD [facility] Procedures Date Procedure Procedure Detail Performing Clinician Start: 01-13-2017 Cholecystectomy JENNIFER LU MD Start: 02-24-2016 Coronary bypass lilliana t angiography JENNIFER LU MD History of coronary artery bypass grafting S/P CABG x 4 JENNIFER LU MD Immunizations Immunization Date Immunization Notes Care Provider [facility] 10-06-2022 influenza, high dose seasonal, preservative-free JENNIFER LU MD [facility] 03-16-2022 COVID-19, mRNA, LNP- S, PF, 100 mcg or 50 mcg dose; Translations: [Moderna COVID-19 Vaccine] JENNIFER LU MD [facility] 12-03-2021 COVID-19, mRNA, LNP- S, PF, 100 mcg or 50 mcg dose; Translations: [Moderna COVID-19 Vaccine] JENNIFER LU MD [facility] 09-17-2021 influenza, high dose seasonal, preservative-free; Translations: [Fluad Quadrivalent PF ] JENNIFER LU MD [facility] 01-20-2021 COVID-19, mRNA, LNP- S, PF, 100 mcg or 50 mcg dose; Translations: [Moderna COVID-19 Vaccine] JENNIFER LU MD [facility] 12-25-2020 SARS-CoV-2 (COVID-19 ) mRNA-1273 vaccine JENNIFER LU MD [facility] 08-15-2020 influenza, injectabl e, quadrivalent, preservative free; Translations: [Fluarix PF Quadrivalent ] JENNIFER LU MD [facility] 09-13-2019 influenza, injectabl e, quadrivalent, preservative free; Translations: [Fluarix PF Quadrivalent ] JENNIFER LU MD [facility] 09-04-2018 influenza virus vacc ine, unspecified formulation JENNIFER LU MD [facility] 09-21-2017 influenza virus vacc ine, unspecified formulation JENNIFER LU MD [facility] 08-24-2016 influenza virus vacc ine, unspecified formulation JENNIFER LU MD [facility] 07-29-2016 influenza virus vacc ine, unspecified formulation JENNIFER LU MD [facility] 10-03-2015 influenza virus vacc ine, unspecified formulation JENNIFER LU MD [facility] 03-03-2015 pneumococcal conjuga te vaccine, 13 valent JENNIFER LU MD [facility] 10-09-2014 influenza virus vacc ine, unspecified formulation JENNIFER LU MD [facility] 09-17-2013 influenza virus vacc ine, unspecified formulation JENNIFER LU MD [facility] 10-02-2012 pneumococcal polysaccharide vaccine, 23 valent JENNIFER LU MD [facility] 08-04-2011 tetanus toxoid, redu steph diphtheria toxoid, and acellular pertussis vaccine, adsorbed JENNIFER LU MD [facility] 08-28-2006 pneumococcal polysaccharide vaccine, 23 vallucy LU MD [facility] Payers Date Payer Category Payer Medicare [id number] 2023 Unknown [id number] 1940 Unknown [id number] Social History Date Type Detail Facility Start: 06-15-2019 Tobacco smoking status Ex-smoker (fi nding) [facility] Clinical Note 05-14-2023 Note Date [...] Locations *1: This test was performed at: [facility], [address] [place] [address], [facility] , [facility] ([place]) Evaluation + Plan note Laboratory Note Date & Type Note Facility Evaluation + Plan note Future Appointments Appointment Date:07/25/2024 04:00:00 PM Scheduled Provider:SOBEIDA MIRANDA DO Location:[facility] [facility] Appointment Type: OV Future Scheduled TestsProstate Specific Antigen 06/08/22Thyroid Stimulating Hormone 06/08/22Free T4 06/08/22Lipid Profile 06/08/22Hepatitis C Antibody IgG 06/08/22Microalbumin Level Urine 06/08/22Prothrombin Time - Panel 06/08/22Prothrombin Time - Panel 07/10/22Prothrombin Time - Panel 07/14/22Vitamin D Level 06/08/22Complete Metabolic Panel 06/08/22 [facility] Hospital course Narrative Note Date & Type Note Facility Hospital course Narrative No data available for this section [facility] Hospital Discharge instructions Note Date & Type Note Facility Hospital Discharge instructions No data available for this section [facility] Progress note Note Date & Type Note Facility Progress note No data available for this section [facility] Summary Purpose Family History No Family History Records Found Advance Directives No Advanced Directives Records Found Additional Source Comments Patient Care team informatio n (unrecognized section and content) Care Team Personnel Name: MACO HICKEY MD Position: P3 Physician - Nephrology Member Role: Gun Repair Clerk Address: Address: [address] [place] [address] [facility] [place], [place] [address] Name: RODRIGO MÁRQUEZ APRN-MACHINE STUFFER AUTOMATIC Member Role: Dog Warden Address: Address: [address] [place] [address] [place] Name: ANTHONY DOLAN MACHINE STUFFER AUTOMATIC Member Role: Blunger Address: Address: [address] [place] [address]- Name: SONNY LOVE MD Position: P3 Physician - Endocrinology Member Role: Quality Measurement Specialist Address: Address: [address] [place] [address]- Name: SOBEIDA MIRANDA DO Position: P4 Physician - Primary Care Member Role: Primary Care Physician Address: Address: [address] [place] [address]- [place] Care Team Related Persons Name: VAHE [...] BE BASED ON THE PRIMARY CLINICAL RECORDS. [facility] [employer] provides no warranty or guarantee of the accuracy or completeness of information in this document.
== END 2023-12-21 14:55 | disposition home or self-care (01) ==
LOC: MEDOUTP 14:54
PROVIDERS: Referring Provider Internal Medicine Nephrology; Visit Provider Internal Medicine Nephrology
DX: N18.5 Chronic kidney disease, stage 5 (principal); D63.1 Anemia in chronic kidney disease
CPT/HCPCS: 36415; 80069; 82728; 83540; 83550; 85025

== ENCOUNTER 2024-01-18 14:40 | Outpatient (CLI) | payer MEDICARE, OTHER, SELFPAY ==
[2024-01-18 15:12] LABS: Absolute Lymphocyte Count 1.86 X10^3/uL (0.83-4.51); Absolute Neutrophil Count 4.4 X10^3/uL (2.0-7.7); Basophil# 0.04 X10^3/uL; Basophil% 0.6 % (0-1); Eosinophil# 0.29 X10^3/uL; Hematocrit 37.2 % (40-54); Hemoglobin 11.7 g/dL (13.0-16.5); Lymphocyte # 1.86 X10^3/ul (0.83-4.51); Lymphocyte % 25.9 % (19-41); Mean Corp Hgb Conc 31.5 g/dL (32-36); Mean Corpuscular Hgb 30.6 pg (27.0-32.0); Mean Corpuscular Volume 97.4 fL (80-94); Mean Platelet Vol. 10.2 fl (6.2-12.0); Monocyte# 0.52 X10^3/uL; Monocyte% 7.3 % (0-10); NRBC Flagged by Analyzer 0 % (0-5); Neutrophil # 4.44 X10^3/uL (2.7-7.7); Neutrophil % 61.9 % (47-70); Platelet Count 131 K/mm3 (150-450); RBC Distribution Width CV 13.7 % (11.6-14.6); RBC Distribution Width SD 48.4 fl (35.1-43.9); Red Blood Count 3.82 M/mm3 (4.6-6.2); White Blood Count 7.2 K/mm3 (4.4-11.0)
[2024-01-18 15:32] LABS: PTHIN 20.1 pg/mL (18.4-80.1)
[2024-01-18 15:36] LABS: Albumin, Serum 3.2 g/dL (3.2-5.0); BUN 44 mg/dL (7-18); BUN/Creat Ratio 18.2 RATIO (10-20); Calcium,Total 9.8 mg/dL (8.5-10.1); Chloride 111 mmol/L (98-107); Creatinine, Serum 2.42 mg/dL (0.70-1.30); EST Glomerular Filtration Rate 27 mL/min (>60); Est Glom Filt Rate - Afr Amer 33 mL/min (>60); Ferritin 103 ng/mL (26-388); Glucose 160 mg/dL (74-106); Iron 54 ug/dL (65-175); Iron Binding Capacity,Total 273 ug/dL (250-450); PERCENT IRON SATURATION 19.8 % (15.0-55.0); Potassium 4.7 mmol/L (3.5-5.1); Sodium Level 139 mmol/L (136-145)
--- OUTSIDE RECORDS SUMMARY | 2024-01-18 19:06 | XMS RPT_ITS | CCD ---
Author Name Unknown Address [address] [place] [address] Organization [facility] Care Team Providers Care Intake Counselor Name Role Phone SOBEIDA MIRANDA DO Primary Care Physician SOBEIDA MIRANDA DO Primary Care Unavailable ALY BAIG, JENNIFER Tobias Attending Unavailable Allergies Allergy Classification Reported Allergen(s) Allergy Type Date of Onset Reaction(s) Facility (1 source) Penicillins; Translations: [penicillins] Drug allergy Hives [facility] (1 source) Pravastatin; Translations: [pravastatin] Drug Allergy Cramp (finding) [facility] Medications Current Medications Medication Drug Class(es) Dates Sig (Normalized) Sig (Original) allopurinol 300 mg oral tablet (1 source) Xanthine Oxidase Inhibitor Start: 09-17-2022 allopurinol 300 mg oral tablet Dose : 150 mg = 0.5 tab(s), Oral, qDay, # 45 tab(s), 1 Refill(s), Pharmacy: [facility], 161.5, cm, 07/10/22 9:52:00 EDT, Height, kg, 07/10/22 9:52:00 EDT, Dosing Weight Start Date: 09/17/22 Status: Ordered apixaban 2.5 mg oral tablet (1 source) Factor Xa Inhibitor Start: 08-17-2022 Eliquis 2.5 mg oral tablet Dose : 2.5 mg = 1 tab(s), Oral, BID, # 180 tab(s), 3 Refill(s), Pharmacy: [facility], 161.5, cm, 07/10/22 9:52:00 EDT, Height, [...] qDay, # 90 tab(s), 1 Refill(s), Pharmacy: [facility], 165, cm, 02/17/23 9:03:00 EDT, Height, kg, 02/17/23 9:03:00 EDT, Dosing Weight Start Date: 03/25/23 Status: Ordered calcitriol 0.36593 mg oral capsule (1 source) Vitamin D3 [...] BID, # 90 tab(s), 1 Refill(s), Pharmacy: [facility], 165, cm, 02/17/23 9:03:00 EDT, Height, kg, 02/17/23 9:03:00 EDT, Dosing Weight Start Date: 03/25/23 Status: Ordered metoprolol tartrate 25 mg oral tablet (1 source) beta-Adrenergic Karyn Start: 03-25-2023 metoprolol tartrate 25 mg oral tablet Dose : 12.5 mg = 0.5 tab(s), Oral, BID, # 90 tab(s), 1 Refill(s), Pharmacy: [facility], 165, cm, 02/17/23 9:03:00 [...] attention, # 25 tab(s), 11 Refill(s), Pharmacy: [id number], 161, cm, 04/30/21 16:15:00 [...] qHS, # 90 tab(s), 1 Refill(s), Pharmacy: [facility], 165, cm, 02/17/23 9:03:00 EDT, Height, kg, 02/17/23 9:03:00 EDT, Dosing Weight Start Date: 03/25/23 Status: Ordered sertraline 25 mg oral tablet (1 source) Serotonin Reuptake Inhibitor Start: 03-25-2023 sertraline 25 mg oral tablet Dose : 25 mg = 1 tab(s), Oral, Daily, # 90 tab(s), 1 Refill(s), Pharmacy: [facility], 165, cm, 02/17/23 9:03:00 [...] Start: 05-12-2023 End: 05-17-2023 ambulatory SOBEIDA MIRANDA DO Facility:B Start: 05-12-2023 End: 05-16-2023 Outreach Lab JENNIFER LU MD [facility] Procedures Date Procedure Procedure Detail Performing Clinician Start: 01-13-2017 Cholecystectomy JENNIFER LU MD Start: 02-24-2016 Coronary bypass lilliana t angiography JENNIFER LU MD History of coronary artery bypass grafting S/P CABG x 4 JENNIFER LU MD Immunizations Immunization Date Immunization Notes Care Provider [facility] 10-06-2022 influenza, high dose seasonal, preservative-free JENNIFER LU MD [facility] 03-16-2022 COVID-19, mRNA, LNP- S, PF, 100 mcg or 50 mcg dose; Translations: [Moderna COVID-19 Vaccine] JENNIFER LU MD [facility] 12-03-2021 COVID-19, mRNA, LNP- S, PF, 100 mcg or 50 mcg dose; Translations: [Moderna COVID-19 Vaccine] JENNIFER LU MD [facility] 09-17-2021 influenza, high dose seasonal, preservative-free; Translations: [Fluad Quadrivalent PF ] JENNIFER LU MD [facility] 01-20-2021 COVID-19, mRNA, LNP- S, PF, 100 mcg or 50 mcg dose; Translations: [Moderna COVID-19 Vaccine] JENNIFER LU MD [facility] 12-25-2020 SARS-CoV-2 (COVID-19 ) mRNA-1273 vaccine JENNIFER LU MD [facility] 08-15-2020 influenza, injectabl e, quadrivalent, preservative free; Translations: [Fluarix PF Quadrivalent ] JENNIFER LU MD [facility] 09-13-2019 influenza, injectabl e, quadrivalent, preservative free; Translations: [Fluarix PF Quadrivalent ] JENNIFER LU MD [facility] 09-04-2018 influenza virus vacc ine, unspecified formulation JENNIFER LU MD [facility] 09-21-2017 influenza virus vacc ine, unspecified formulation JENNIFER LU MD [facility] 08-24-2016 influenza virus vacc ine, unspecified formulation JENNIFER LU MD [facility] 07-29-2016 influenza virus vacc ine, unspecified formulation JENNIFER LU MD [facility] 10-03-2015 influenza virus vacc ine, unspecified formulation JENNIFER LU MD [facility] 03-03-2015 pneumococcal conjuga te vaccine, 13 valent JENNIFER LU MD [facility] 10-09-2014 influenza virus vacc ine, unspecified formulation JENNIFER LU MD [facility] 09-17-2013 influenza virus vacc ine, unspecified formulation JENNIFER LU MD [facility] 10-02-2012 pneumococcal polysaccharide vaccine, 23 valent JENNIFER LU MD [facility] 08-04-2011 tetanus toxoid, redu steph diphtheria toxoid, and acellular pertussis vaccine, adsorbed JENNIFER LU MD [facility] 08-28-2006 pneumococcal polysaccharide vaccine, 23 valent JENNIFER LU MD [facility] Payers Date Payer Category Payer Medicare [id number] 2023 Unknown [id number] 1940 Unknown [id number] Social History Date Type Detail Facility Start: 06-15-2019 Tobacco smoking status Ex-smoker (fi nding) [facility] Clinical Note 05-14-2023 Note Date & Type [...] Locations *1: This test was performed at: [facility], [address] [place] [address], [place], [address]- , [facility] ([place]) Evaluation + Plan note Laboratory Note Date & Type Note Facility Evaluation + Plan note Future Appointments Appointment Date:07/25/2024 04:00:00 PM Scheduled Provider:SOBEIDA MIRANDA DO Location:[facility] Appointment Type: OV Future Scheduled TestsProstate Specific Antigen 06/08/22Thyroid Stimulating Hormone 06/08/22Free T4 06/08/22Lipid Profile 06/08/22Hepatitis C Antibody IgG 06/08/22Microalbumin Level Urine 06/08/22Prothrombin Time - Panel 06/08/22Prothrombin Time - Panel 07/10/22Prothrombin Time - Panel 07/14/22Vitamin D Level 06/08/22Complete Metabolic Panel 06/08/22 [facility] Hospital course Narrative Note Date & Type Note Facility Hospital course Narrative No data available for this section [facility] Hospital Discharge instructions Note Date & Type Note Facility Hospital Discharge instructions No data available for this section [facility] Progress note Note Date & Type Note Facility Progress note No data available for this section [facility] Summary Purpose Family History No Family History Records Found Advance Directives No Advanced Directives Records Found Additional Source Comments Patient Care team informatio n (unrecognized section and content) Care Team Personnel Name: MACO HICKEY MD Position: P3 Physician - Nephrology Member Role: Treer Address: Address: [address] [place] [address] [facility] [place], [place] [address] Name: RODRIGO MÁRQUEZ APRN-HEALTHCARE SCIENCE SPECIALIST Member Role: Kraft Mill Operator Address: Address: [address] [place] [address] Name: ANTHONY DOLAN CNP Member Role: Wire Border Assembler Address: Address: [address] [place] [address]- Name: SONNY LOVE MD Position: P3 Physician - Endocrinology Member Role: Brick Maker Address: Address: [address] [place] [address]- Name: SOBEIDA MIRANDA DO Position: P4 Physician - Primary Care Member Role: Primary Care Physician Address: Address: [address] [place] [address]- Care Team Related Persons Name: VAHE ALARCON [...] BE BASED ON THE PRIMARY CLINICAL RECORDS. [employer] provides no warranty or guarantee of the accuracy or completeness of information in this document.
== END 2024-01-18 14:41 | disposition home or self-care (01) ==
LOC: MEDOUTP 14:41
PROVIDERS: Referring Provider Internal Medicine Nephrology; Visit Provider Internal Medicine Nephrology
DX: N18.5 Chronic kidney disease, stage 5 (principal); D63.1 Anemia in chronic kidney disease
CPT/HCPCS: 36415; 80069; 82728; 83540; 83550; 83970; 85025

== ENCOUNTER 2024-02-15 14:48 | Outpatient (CLI) | payer MEDICARE, OTHER, SELFPAY ==
[2024-02-15 15:09] LABS: Absolute Lymphocyte Count 1.93 X10^3/uL (0.83-4.51); Absolute Neutrophil Count 6.3 X10^3/uL (2.0-7.7); Basophil# 0.03 X10^3/uL; Basophil% 0.3 % (0-1); Eosinophil# 0.11 X10^3/uL; Eosinophils% 1.2 % (0-5); Hematocrit 40.8 % (40-54); Hemoglobin 12.9 g/dL (13.0-16.5); Lymphocyte # 1.93 X10^3/ul (0.83-4.51); Lymphocyte % 21.1 % (19-41); Mean Corp Hgb Conc 31.6 g/dL (32-36); Mean Corpuscular Hgb 30.6 pg (27.0-32.0); Mean Corpuscular Volume 96.7 fL (80-94); Monocyte# 0.75 X10^3/uL; Monocyte% 8.2 % (0-10); NRBC Flagged by Analyzer 0 % (0-5); Neutrophil % 68.9 % (47-70); Platelet Count 118 K/mm3 (150-450); RBC Distribution Width CV 14.1 % (11.6-14.6); RBC Distribution Width SD 50.3 fl (35.1-43.9); Red Blood Count 4.22 M/mm3 (4.6-6.2); White Blood Count 9.2 K/mm3 (4.4-11.0)
[2024-02-15 15:30] LABS: Albumin, Serum 3.7 g/dL (3.2-5.0); BUN 52 mg/dL (7-18); BUN/Creat Ratio 20.6 RATIO (10-20); Calcium,Total 9.4 mg/dL (8.5-10.1); Chloride 115 mmol/L (98-107); Creatinine, Serum 2.53 mg/dL (0.70-1.30); EST Glomerular Filtration Rate 26 mL/min (>60); Est Glom Filt Rate - Afr Amer 32 mL/min (>60); Ferritin 141 ng/mL (26-388); Glucose 112 mg/dL (74-106); Iron 31 ug/dL (65-175); Iron Binding Capacity,Total 264 ug/dL (250-450); PERCENT IRON SATURATION 11.7 % (15.0-55.0); Phosphorus 3.1 mg/dL (2.5-4.9); Potassium 4.2 mmol/L (3.5-5.1); Sodium Level 140 mmol/L (136-145)
== END 2024-02-15 14:49 | disposition home or self-care (01) ==
LOC: MEDOUTP 14:49
PROVIDERS: Referring Provider Internal Medicine Nephrology; Visit Provider Internal Medicine Nephrology
DX: E11.22 Type 2 diabetes mellitus with diabetic chronic kidney disease (principal); N18.5 Chronic kidney disease, stage 5; J44.9 Chronic obstructive pulmonary disease, unspecified; N25.81 Secondary hyperparathyroidism of renal origin; D63.1 Anemia in chronic kidney disease; R19.7 Diarrhea, unspecified; R10.9 Unspecified abdominal pain; M54.50 Low back pain, unspecified; G47.33 Obstructive sleep apnea (adult) (pediatric); Z95.1 Presence of aortocoronary bypass graft; Z87.891 Personal history of nicotine dependence
CPT/HCPCS: 36415; 74176; 80053; 80069; 81001; 82728; 83540; 83550; 83690; 85025; J7030; J2405

== ENCOUNTER 2024-02-15 22:56 | Emergency (ER) | payer MEDICARE, OTHER, SELFPAY ==
[2024-02-15 22:56] VITALS: BP 163/83; PULSE 71; RESP 18; TEMP 36.8; O2SAT 100
--- NOTE | 2024-02-15 23:47 | CT_ITS ---
INDICATION: Pain EXAMINATION: CT ABDOMEN AND PELVIS WITHOUT CONTRAST - CT Abdomen And Pelvis W/O Contrast Injection TECHNIQUE: Helically acquired images were obtained of the abdomen and pelvis without oral or IV contrast. A radiation dose optimization technique was used for this scan. IV Contrast dosage and agent: None. Oral contrast: None. RADIATION DOSAGE (If Supplied By Facility): CTDIvol = ( 20.23 ) mGy, DLP = ( 1071.44 ) mGycm COMPARISON: 07/11/2016 FINDINGS: LOWER CHEST: Bibasilar dependent atelectatic changes. Mild cardiomegaly. Aortic valve replacement and triple-vessel coronary calcifications status post median sternotomy. LIVER: The liver is normal in size, shape, and attenuation. No focal mass. GALLBLADDER AND BILIARY TREE: Cholecystectomy. No intra- or extrahepatic biliary ductal dilation. PANCREAS: No focal cystic or solid mass. SPLEEN: Normal size without focal cystic or solid mass. ADRENAL GLANDS: No nodules. KIDNEYS AND URETERS: Atrophic. No hydronephrosis or perinephric abnormality. No urinary calculi. PERITONEUM: No ascites or free air. No other fluid collection. BOWEL: The stomach is unremarkable. Normal caliber small bowel. No obstruction. No colonic wall thickening or inflammatory changes. Normal appendix. LYMPH NODES: No enlarged mesenteric or retroperitoneal lymph nodes. VESSELS: Aorta is non-dilated. URINARY BLADDER: Unremarkable. REPRODUCTIVE ORGANS: No pelvic masses. Prostatomegaly measuring up to 5.9 cm transversely. ABDOMINAL WALL: No discrete abdominal or pelvic wall hernia. BONES: No acute or suspicious osseous abnormality. CT/Abdomen/Pelvis without Cont IMPRESSION: No acute findings to explain the patient''s symptomatology. Chronic findings as above. Electronically Signed: James Jovel MD at 1:19 EDT ,
--- NOTE | 2024-02-15 23:55 | EDS_ITS ---
HPI History of Present Illness Chief Complaint: Flank Pain Informant: patient and family (Niece-lives with him) Narrative Narrative: Patient is an 83-year-old male with history of TIAs, nonrheumatic aortic stenosis (aortic valve replacements), left bundle branch block, hypertension, proximal atrial fibrillation (on Eliquis), obstructive sleep apnea, CKD, chronic hypoxic respiratory failure on home oxygen as well as chronic heart failure and kidney stones presenting with back and abdominal pain. Patient developed left lower back pain a little over a week ago. He was seen at his PCP office and diagnosed with muscle skeletal pain and placed on Tylenol as well as [id number] patches on Tuesday (5 days ago). He feels that his symptoms are not improving and possibly worsening. He denies any radiation of the pain. He went on to develop abdominal pain and diarrhea over the weekend. The abdominal pain is in the lower abdomen worse on the right than the left. Notes that he has had too many stools today. He notes initially they are black but they are now brown in color. An episode of vomiting 2 days ago. Is complaining some nausea now. Is concerned he could have a kidney stone. Denies any history of diverticulitis. Denies any blood in his stool. Denies any fever or chills. Does have a prior history of umbilical hernia repair as well as cholecystectomy. [facility] Medical History Anemia Atherosclerosis of coronary artery bypass graft without angina pectoris Atherosclerosis of coronary artery of samish heart without angina pectoris Chronic combined systolic and diastolic CHF (congestive heart failure) Chronic renal failure, stage 3 (moderate) Chronic respiratory failure with hypoxia COPD (chronic obstructive pulmonary disease) Essential (primary) hypertension Former smoker Hyperlipemia Left bundle branch block Lymphedema Morbid obesity with BMI of 45.0-49.9, adult Non-rheumatic aortic stenosis Obstructive sleep apnea Ocular migraine AUTUMN treated with BiPAP PAF (paroxysmal atrial fibrillation) TIA (transient ischemic attack) Type 2 diabetes mellitus without complications Venous insufficiency of both lower extremities Home Medications aspirin 81 mg tablet,delayed release 81 mg PO DAILY HEART HEALTH 07/11/16 [History Last Taken 07/03/23] multivitamin 1 ea PO DAILY HEALTH MAINTENANCE 07/11/16 [History Last Taken 08/18/23] insulin regular human 100 unit/mL injection solution 12 unit subcut BID DIABETES 07/24/16 [History Last Taken 07/02/23] cholecalciferol (vitamin D3) 25 mcg (1,000 unit) tablet 25 mcg PO DAILY SUPPLEMENT 10/26/16 [History Last Taken 08/18/23] sertraline 25 mg tablet 25 mg PO DAILY DEPRESSION 01/10/18 [History Last Taken 08/18/23] famotidine 20 mg tablet 20 mg PO DAILY GERD 11/13/19 [History Last Taken 08/18/23] olanzapine 2.5 mg tablet 2.5 mg PO QHS DEPRESSION 11/13/19 [History Last Taken 08/17/23] allopurinol 300 mg tablet 300 mg PO DAILY GOUT 12/07/21 [History Last Taken 08/18/23] apixaban 2.5 mg tablet (Eliquis) 2.5 mg PO BID BLOOD THINNER 10/07/22 [History Last Taken 07/03/23] calcitriol 0.25 mcg capsule 0.5 mcg PO MOWEFR SUPPLEMENT 10/07/22 [History Last Taken 08/17/23] isosorbide mononitrate 30 mg tablet,extended release 24 hr 30 mg PO DAILY HEART #90 tabs 02/01/23 [Rx Last Taken 08/18/23] potassium chloride 20 mEq tablet,extended release 20 meq PO DAILY potassium #1 TAB 07/03/23 [Rx Last Taken Unknown] psyllium husk (aspartame) 3 gram oral powder packet (Daily Fiber (psyllium- aspartame)) 1 packet PO BID constipation #0 ea 07/03/23 [Rx Last Taken 07/03/23] levetiracetam 100 mg/mL oral solution (Keppra) 500 mg PO BID 08/18/23 [History Last Taken 08/18/23] menthol 0.44 %-zinc oxide 20.6 % topical ointment (Calmoseptine) 1 applic topical BID 08/18/23 [History Last Taken 08/18/23] nystatin 100,000 unit/gram topical powder (Nystop) 1 applic topical BID 08/18/23 [History Last Taken 08/18/23] sennosides 8.6 mg-docusate sodium 50 mg tablet (2-in-1 Laxative) 1 tab-cap PO BID 08/18/23 [History Last Taken 08/18/23] amlodipine 2.5 mg tablet 2.5 mg PO DAILY 09/16/23 [History Last Taken Unknown] furosemide 20 mg tablet 20 mg PO DAILY 30 days #30 tabs 09/22/23 [Rx Last Taken Unknown] insulin NPH isoph U-100 human 100 unit/mL subcutaneous suspension 20 unit (0.2 mL) subcut BID DIABETES #1 mL 09/22/23 [Rx Last Taken 07/03/23] tizanidine 2 mg tablet 2 mg PO Q8H PRN muscle spasticity #10 tabs 02/16/24 [Rx Last Taken Unknown] Allergy/AdvReac Type Severity Reaction Status Date / Time Penicillins [PCN] Allergy Swelling Verified 11/23/23 15:43 Family History Father Myocardial infarction Mother CVA (cerebral vascular accident) Brother CAD (coronary artery disease) Diabetes Surgical History H/O aortic valve replacement (02/24/16) H/O coronary artery bypass surgery (02/24/16) Hx of cholecystectomy (01/13/17) Social History household members: family and other details: Granddaughter. Smoking Status: Former smoker how long ago did patient quit smokin + years alcohol intake: never substance use type: does not use caffeine: Yes Type: carbonated beverages and tea ROS ROS ED Constitutional Constitutional ED: Denies chills or fever(s) ENT ENT ED: Denies sore throat Cardiovascular Cardiovascular: Denies chest pain Respiratory/Chest Respiratory/Chest: Denies cough Gastrointestinal Gastrointestinal: Reports abdominal pain, diarrhea, nausea and vomiting; Denies constipation or melena Genitourinary Genitourinary ED: Denies dysuria or urinary frequency Musculoskeletal Musculoskeletal: Reports back pain; Denies arthralgias or myalgias Integumentary Denies rash Neurologic Neurologic: Denies headache(s), paresthesias or weakness Psychiatric Psychiatric: Denies anxiety Hematologic/Lymphatic Hematologic/Lymphatic: Reports easy bleeding and easy bruising EXAM Physical Exam Const Vital Signs: 02/15/24 22:56 02/16/24 01:00 02/16/24 03:00 Temperature 98.3 F 97.7 F L Temperature Source Temporal Pulse Rate 71 57 L Respiratory Rate 18 18 Blood Pressure 163/83 H 151/58 H 135/100 H Blood Pressure Mean 109 89 111 Pulse Ox 100 98 98 Oxygen Delivery Method Nasal Cannula Room Air Oxygen Flow Rate (L/min) 2 Positive well nourished and well developed Constitutional Narrative: Chronically ill-appearing General Appearance ED: well developed and NAD HEENT Reports moist mucous membranes Eyes PERRL and EOMs intact bilaterally General Eye ED: Negative for scleral icterus Neck supple Chest Wall inspection of chest normal Resp normal respiratory effort Resp Narrative: Mildly diminished breath sounds throughout Cardio regular rate and regular rhythm GI non-tender GI Narrative: No mass appreciated. Protuberant versus mildly distended abdomen. Maximal tenderness in the right lower quadrant/right periumbilical region with mild tenderness in the left lower abdomen. Inspection: abdominal distention Auscultation: hyperactive bowel sounds Palpation: soft and tender LLQ and RLQ; Negative for guarding, mass or rebound tenderness present Back/Spine no CVA tenderness Extremity normal to inspection Neuro oriented x3 Sensorium / Orientation: alert Motor Exam: general weakness Psych mental status grossly normal MDM MDM MDM Narrative Medical decision making narrative: Patient presents with ongoing left lower back pain as well as diarrhea and abdominal discomfort. Differential includes cholecystitis, renal colic, muscle skeletal strain, abdominal wall hernia and urinary tract infection. Patient is hemodynamically stable and on his baseline oxygen. He is not claiming respiratory symptoms. CBC, CMP and lipase obtained as well as urinalysis. His pain is at and below the level of the umbilicus so I do not think he needs a cardiac workup. Patient has chronic but improved anemia with hemoglobin 12.9. Not sure if this is just improvement versus some hemoconcentration. He does not have a leukocytosis. His CMP is consistent with mild dehydration with a bicarb of 19 however his kidney function is at his baseline of 2.46. He is not having significant electrolyte abnormalities otherwise and his liver function is normal. Urinalysis shows some cast but is not consistent with infection. CT abdomen pelvis does not show any acute process but could be consistent with diarrhea. I did contact the reading radiologist because of some increased air levels in the stomach and small bowel however he states is most consistent with diarrhea. This is consistent with the patient's history of recent diarrhea. Patient does not have any diarrhea in the ER and unable to obtain a stool sample. Lower suspicion for C. difficile given his normal white blood cell count and he is here for close to 4 hours in the ER not able to provide a stool sample. Will continue to treat the diarrhea expectantly. He does not have any blood in his stool and does not have any findings library services assistant with colitis on the CT so I do not think he requires antibiotics. Is given a renal dose of tizanidine for his back pain and Lidoderm patch as I do think his lower back pain is more muscle skeletal in nature. Patient feels comfortable going home. Given return precautions. Discharged home with his niece. Will follow-up with primary care doctor. Lab Data Attestation: I reviewed the patient's lab results. Labs: Laboratory Results - last 24 hr 02/15/24 02/16/24 23:56 02:20 WBC 7.6 RBC 4.14 L Hgb 12.9 L Hct 40.3 MCV 97.3 H MCH 31.2 MCHC 32.0 RDW Std Deviation 50.0 H RDW Coeff of Yeny 14.0 Plt Count 111 L MPV 10.7 Immature Gran % (Auto) 0.400 Neut % (Auto) 67.3 Lymph % (Auto) 21.2 [place] % (Auto) 8.6 Eos % (Auto) 2.2 Baso % (Auto) 0.3 Absolute Neuts (auto) 5.1 Absolute Lymphs (auto) 1.62 Nucleated RBC % 0 Sodium 142 Potassium 4.1 Chloride 116 H Carbon Dioxide 19.0 L Anion Gap 7 BUN 47 H Creatinine 2.46 H Estim Creat Clear Calc 25.89 Est GFR (MDRD) Af Amer 33 L Est GFR (MDRD) Non-Af 27 L BUN/Creatinine Ratio 19.1 Glucose 116 H Calcium 9.5 Total Bilirubin 0.40 AST 18 ALT 12 L Alkaline Phosphatase 123 H Total Protein 7.7 Albumin 3.3 Globulin 4.4 H Albumin/Globulin Ratio 0.8 L Lipase 20 Urine Color Yellow Urine Clarity Clear Urine pH 6.0 Ur Specific [place] 1.020 Urine Protein 100 H Urine Glucose (UA) Normal Urine Ketones Negative Urine Occult Blood 10 H Urine Nitrite Negative Urine Bilirubin Negative Urine Urobilinogen Normal Ur Leukocyte Esterase Negative Urine RBC 0 SEEN Urine WBC 0 SEEN Ur Squamous Epith Cells 0-5 SEEN Urine Bacteria RARE Hyaline Casts 0-5 SEEN Coarse Granular Casts 0-5 SEEN Urine Mucus 0 SEEN Radiography Diagnostic Testing: Clinical Impression(s) from Imaging Studies Abdomen/Pelvis CT 02/15/24 23:47 IMPRESSION: No acute findings to explain the patient''s symptomatology. Chronic findings as above. Electronically Signed: James Jovel MD at 1:19 EDT Reading Location ID and State: [facility] / [place] Tel , Service support , Management Discussion w/another healthcare provider: Radiologist Discharge Plan Triage Chief Complaint: Flank Pain ED Provider: Angélica Palomo Dx/Rx/DC Orders Clinical Impression: Diarrhea, Abdominal pain in male, Left low back pain Instructions: ED Back Pain (Acute or Chronic), ED Diarrhea, Unknown Cause, ED Abdominal Pain Unkn Cause Male... Prescriptions: New tizanidine 2 mg tablet 2 mg PO Q8H PRN (Reason: muscle spasticity) Qty: 10 0RF No Action famotidine 20 mg tablet 20 mg PO DAILY olanzapine 2.5 mg tablet 2.5 mg PO QHS Eliquis 2.5 mg tablet 2.5 mg PO BID aspirin 81 MG tablet,delayed release (DR/EC) 81 mg PO DAILY Patient Comments: multivitamin 1 EACH tablet 1 ea PO DAILY insulin regular human 100 UNIT/ML solution 12 unit SC BID Patient Comments: afternoon and night cholecalciferol (vitamin D3) 1,000 UNIT tablet 25 mcg PO DAILY sertraline 25 MG tablet 25 mg PO DAILY calcitriol 0.25 mcg capsule 0.5 mcg PO MOWEFR allopurinol 300 mg tablet 300 mg PO DAILY amlodipine 2.5 mg tablet 2.5 mg PO DAILY furosemide 20 mg Tablet 20 mg PO DAILY 30 Days Qty: 30 0RF insulin NPH isoph U-100 human 100 unit/mL suspension 20 unit SC BID Qty: 1 0RF Rx Instructions: 5 UNITS IN THE MORNING 5 UNITS AT BEDTIME Daily Fiber (psyllium-aspart) 3 gram Powder In Packet 1 packet PO BID Qty: 0 0RF potassium chloride 20 mEq tablet extended release 20 meq PO DAILY Qty: 1 0RF menthol-zinc oxide [Calmoseptine] 0.44-20.6 % ointment 1 applic topical BID nystatin [Nystop] 100,000 unit/gram powder 1 applic topical BID sennosides-docusate sodium [2-in-1 Laxative] 8.6-50 mg tablet 1 tab-cap PO BID levetiracetam [Keppra] 100 mg/mL solution 500 mg PO BID isosorbide mononitrate 30 mg tablet extended release 24 hr 30 mg PO DAILY Qty: 90 4RF Primary Care Provider: Rios Downey Referrals: Rios Downey, [Primary Care Provider] - Activity Restrictions/Additional Instructions: Continue take Tylenol as previously instructed for pain. Workup consistent with some mild dehydration but otherwise normal. He was given IV fluids today. There is not appear to be any acute surgical or medical process going on your abdomen. I suspect the diarrhea needs to run its course. He can take Pepto- Bismol. The back pain does appear to be muscle skeletal. He would prescribed tizanidine for this. I do recommend using [id number] Lidoderm patches as well to the area of maximum pain in your lower back. Return to the ER if you have a progression or worsening of your symptoms or further concerns. Disposition Disposition: Home, Self Care Discharge Date/Time: 02/16/24 03:00
[2024-02-15 23:56] VITALS: BMI 38.6
[2024-02-16] MEDS: Morphine 4 MG/ML Syringe IV
[2024-02-16] MEDS: Ondansetron 4 MG/2 ML Vial IV
[2024-02-16] MEDS: 0.9% Normal Saline (1000mL) 1,000 ML 125 ML IV (00:01)
[2024-02-16 00:28] LABS: ALB/GLOB Ratio 0.8 RATIO (0.9-2.4); AST(SGOT) 18 U/L (15-37); Alanine Aminotransfer ALT/SGPT 12 U/L (16-61); Albumin, Serum 3.3 g/dL (3.2-5.0); Alkaline Phosphatase 123 U/L (45-117); Anion Gap 7 (5-15); BUN 47 mg/dL (7-18); BUN/Creat Ratio 19.1 RATIO (10-20); Calcium,Total 9.5 mg/dL (8.5-10.1); Chloride 116 mmol/L (98-107); Creatinine, Serum 2.46 mg/dL (0.70-1.30); EST Glomerular Filtration Rate 27 mL/min (>60); Est Glom Filt Rate - Afr Amer 33 mL/min (>60); Estimated Creatinine Clearance 25.89 ml/min; Globulin 4.4 g/dL (2.2-4.2); Glucose 116 mg/dL (74-106); Lipase 20 U/L (13-75); Potassium 4.1 mmol/L (3.5-5.1); Protein, Total 7.7 g/dL (6.4-8.2); Sodium Level 142 mmol/L (136-145)
[2024-02-16 00:35] LABS: Absolute Lymphocyte Count 1.62 X10^3/uL (0.83-4.51); Absolute Neutrophil Count 5.1 X10^3/uL (2.0-7.7); Basophil# 0.02 X10^3/uL; Basophil% 0.3 % (0-1); Eosinophil# 0.17 X10^3/uL; Eosinophils% 2.2 % (0-5); Hematocrit 40.3 % (40-54); Hemoglobin 12.9 g/dL (13.0-16.5); Lymphocyte # 1.62 X10^3/ul (0.83-4.51); Lymphocyte % 21.2 % (19-41); Mean Corpuscular Hgb 31.2 pg (27.0-32.0); Mean Corpuscular Volume 97.3 fL (80-94); Mean Platelet Vol. 10.7 fl (6.2-12.0); Monocyte# 0.66 X10^3/uL; Monocyte% 8.6 % (0-10); NRBC Flagged by Analyzer 0 % (0-5); Neutrophil # 5.14 X10^3/uL (2.7-7.7); Neutrophil % 67.3 % (47-70); Platelet Count 111 K/mm3 (150-450); Red Blood Count 4.14 M/mm3 (4.6-6.2); White Blood Count 7.6 K/mm3 (4.4-11.0)
[2024-02-16 01:00] VITALS: BP 151/58; O2SAT 98
[2024-02-16 02:27] LABS: Mucous, Urine 0 SEEN /hpf (<or=2+); Red Blood Cells-Urine 0 SEEN /hpf (0-5); White Blood Cells 0 SEEN /hpf (0-5)
[2024-02-16 02:30] LABS: Color, Urine Yellow (Yellow); Glucose, Dipstick Normal (Normal); Ketone-Dipstick Negative (Negative); Leukocyte Esterase-Dipstick Negative /ul (Negative); Nitrite-Dipstick Negative (Negative); Occult Blood-Urine 10 /ul (Negative); Protein-Dipstick 100 mg/dl (Negative); Urine Bilirubin Dipstick Negative (Negative); Urine Clarity Clear (Clear); Urine Urobilinogen Normal (Normal)
[2024-02-16 02:45] LABS: Bacteria RARE /hpf (None Seen); Coarse Granular Cast 0-5 SEEN /lpf (0-5 /lpf); Hyaline Cast 0-5 SEEN /lpf (0-5); Squamous Epithelial Cells - UA 0-5 SEEN /hpf (0-5)
[2024-02-16 03:00] VITALS: BP 135/100; PULSE 57; RESP 18; TEMP 36.5; O2SAT 98
[2024-02-16] MEDS: Lidocaine 5% Patch 1 PATCH TOPICAL (03:07)
== END 2024-02-16 03:00 | disposition home or self-care (01) ==
PROVIDERS: Emergency Provider Emergency Medicine; Visit Provider Emergency Medicine
DX: R19.7 Diarrhea, unspecified (principal); N18.5 Chronic kidney disease, stage 5; J44.9 Chronic obstructive pulmonary disease, unspecified; E11.22 Type 2 diabetes mellitus with diabetic chronic kidney disease; R10.9 Unspecified abdominal pain; M54.50 Low back pain, unspecified; G47.33 Obstructive sleep apnea (adult) (pediatric); Z95.1 Presence of aortocoronary bypass graft; Z87.891 Personal history of nicotine dependence; D63.1 Anemia in chronic kidney disease; N25.81 Secondary hyperparathyroidism of renal origin
CPT/HCPCS: 36415; 74176; 80053; 80069; 81001; 82728; 83540; 83550; 83690; 85025; 99283; J7030; J2405

== ENCOUNTER 2024-02-19 11:30 | Emergency (ER) | payer MEDICARE, OTHER, SELFPAY ==
[2024-02-19] VITALS (17 sets, daily range): BP systolic 126–149; BP diastolic 61–103; PULSE 51–74; RESP 12–20; TEMP 36.3–37; O2SAT 94–100; BMI 39.4
--- NOTE | 2024-02-19 12:20 | RAD_ITS ---
INDICATION: weakness EXAMINATION/TECHNIQUE: X-RAY - XR Chest 1 View COMPARISON: Prior study dated: 09/16/2023 FINDINGS: LINES/DEVICES: None. LUNGS: No consolidation, edema or effusion. No pneumothorax. MEDIASTINUM AND CARDIOVASCULAR STRUCTURES: Stable cardiomediastinal silhouette. Status post median sternotomy. BONES AND SOFT TISSUES: Unremarkable. RAD/Chest 1 View (Portable) IMPRESSION: No radiographic evidence of acute cardiopulmonary disease. Electronically Signed: Dwight Silva MD at 13:16 EDT ,
[2024-02-19 12:52] LABS: Bacteria 0 SEEN /hpf (None Seen); Mucous, Urine 0 SEEN /hpf (<or=2+); Red Blood Cells-Urine 0 SEEN /hpf (0-5); Squamous Epithelial Cells - UA 0 SEEN /hpf (0-5); White Blood Cells 0 SEEN /hpf (0-5)
[2024-02-19 12:54] LABS: Color, Urine Yellow (Yellow); Glucose, Dipstick Normal (Normal); Ketone-Dipstick Negative (Negative); Leukocyte Esterase-Dipstick Negative /ul (Negative); Nitrite-Dipstick Negative (Negative); Occult Blood-Urine 10 /ul (Negative); Protein-Dipstick 30 mg/dl (Negative); Specific Gravity, Urine 1.015 (1.002-1.030); Urine Bilirubin Dipstick Negative (Negative); Urine Clarity Clear (Clear); Urine Urobilinogen Normal (Normal)
[2024-02-19 12:55] LABS: Absolute Lymphocyte Count 1.41 X10^3/uL (0.83-4.51); Absolute Neutrophil Count 4.1 X10^3/uL (2.0-7.7); Basophil# 0.02 X10^3/uL; Basophil% 0.3 % (0-1); Eosinophil# 0.26 X10^3/uL; Eosinophils% 4.2 % (0-5); Hematocrit 35.9 % (40-54); Hemoglobin 11.9 g/dL (13.0-16.5); Lymphocyte # 1.41 X10^3/ul (0.83-4.51); Mean Corp Hgb Conc 33.1 g/dL (32-36); Mean Corpuscular Hgb 31.1 pg (27.0-32.0); Mean Corpuscular Volume 93.7 fL (80-94); Mean Platelet Vol. 10.6 fl (6.2-12.0); Monocyte# 0.36 X10^3/uL; Monocyte% 5.9 % (0-10); NRBC Flagged by Analyzer 0 % (0-5); Neutrophil # 4.06 X10^3/uL (2.7-7.7); Neutrophil % 66.4 % (47-70); Platelet Count 137 K/mm3 (150-450); RBC Distribution Width CV 14.4 % (11.6-14.6); RBC Distribution Width SD 48.8 fl (35.1-43.9); Red Blood Count 3.83 M/mm3 (4.6-6.2); White Blood Count 6.1 K/mm3 (4.4-11.0)
--- NOTE | 2024-02-19 13:03 | CT_ITS ---
STUDY: CT ABDOMEN AND PELVIS WITH CONTRAST REASON FOR EXAM: Male, 83 years old. Abdominal pain RADIATION DOSAGE (If Supplied By Facility): CTDIvol = ( 23.93 ) mGy, DLP = ( 1297.50 ) mGycm TECHNIQUE: IV 75mL Isovue-370 was administered. Transaxial images were obtained from the dome of the diaphragm to the symphysis pubis. Multiplanar coronal and sagittal images were reformatted. Individualized Dose Optimization Techniques Were Used For This CT. COMPARISON: Prior study dated: 02/16/2024 FINDINGS: The visualized lung bases demonstrate mild atelectasis or scarring unchanged. Borderline heart size. Previous median sternotomy. Coronary calcifications. Normal liver. There are surgical clips in the gallbladder fossa consistent with a prior cholecystectomy. The spleen is normal in size. Extensive splenic artery calcifications. Calcifications and peripheral aspect of the spleen. Normal pancreas. Normal bilateral adrenal glands. There is a small hiatal hernia. Nonspecific fluid-filled distal small bowel loops. No evidence of bowel obstruction. No evidence of acute diverticulitis. The appendix is visualized and appears normal. There is diffuse atherosclerotic calcification of the abdominal aorta with elongation and tortuosity, but without a demonstrated aneurysm. No retroperitoneal adenopathy. Atrophic kidneys bilaterally. No evidence of hydronephrosis. Thickening of the bladder wall probably due to underdistention. Cystitis is less likely. Prominent prostate. Correlation with PSA recommended. Normal abdominal wall. There are diffuse degenerative changes of the visualized lumbar spine. CT/Abdomen/Pelvis W IV Cont ONLY IMPRESSION: 1. Nonspecific fluid-filled small bowel loops without evidence of bowel obstruction. 2. Thickening of the bladder wall probably due to underdistention. Cystitis is less likely. 3. Otherwise no focal acute inflammatory process. 4. Small hiatal hernia. Electronically Signed: Dwight Silva MD at 15:37 EDT ,
[2024-02-19 13:07] LABS: BNP,B-Type NATRIURETIC PEPTIDE 271.7 pg/mL (0-100)
[2024-02-19 13:12] LABS: ALB/GLOB Ratio 0.7 RATIO (0.9-2.4); AST(SGOT) 20 U/L (15-37); Alanine Aminotransfer ALT/SGPT 15 U/L (16-61); Alkaline Phosphatase 167 U/L (45-117); Anion Gap 8 (5-15); BUN 49 mg/dL (7-18); BUN/Creat Ratio 19.6 RATIO (10-20); Calcium,Total 8.7 mg/dL (8.5-10.1); Chloride 117 mmol/L (98-107); EST Glomerular Filtration Rate 26 mL/min (>60); Est Glom Filt Rate - Afr Amer 32 mL/min (>60); Estimated Creatinine Clearance 25.73 ml/min; Globulin 4.5 g/dL (2.2-4.2); Glucose 101 mg/dL (74-106); Lipase 22 U/L (13-75); Protein, Total 7.5 g/dL (6.4-8.2); Sodium Level 142 mmol/L (136-145); Troponin-I HS 63 pg/mL (3.0-78.0)
--- NOTE | 2024-02-19 13:23 | CT_ITS ---
INDICATION: altered mental status EXAMINATION: CT BRAIN - CT Head or Brain W/O Contrast Injection TECHNIQUE: Multiple axial images were obtained of the head without intravenous contrast. A radiation dose optimization technique was used for this scan. IV Contrast dosage and agent: None. RADIATION DOSAGE (If Supplied By Facility): CTDIvol = ( 44.99 ) mGy, DLP = ( 779.24 ) mGycm COMPARISON: No relevant prior comparison study available FINDINGS: BRAIN PARENCHYMA: No intra- or extra-axial hemorrhage. No evidence of acute infarct. No intracranial mass or mass effect. Chronic periventricular deep white matter changes likely due to microvascular disease. Atherosclerotic calcifications of the cavernous internal carotid arteries.. There is preservation of the stokes/white matter interface. Posterior fossa structures are unremarkable. CSF SPACES: Mild to moderate diffuse atrophy. No hydrocephalus. Basal cisterns are patent. CALVARIUM, SKULL BASE, PARANASAL SINUSES AND MASTOID AIR CELLS: Clear. No discrete lytic or blastic abnormalities. ORBITS: Previous bilateral cataract surgery. CT/Brain/Head without Contrast IMPRESSION: 1. No acute intracranial process. 2. Chronic involutional changes of the brain Electronically Signed: Dwight Silva MD at 15:28 EDT ,
[2024-02-19] MEDS: 0.9% Normal Saline (1000mL) 1,000 ML 999 ML IV (13:30)
--- NOTE | 2024-02-19 13:48 | EX.ED.DYSGE1 ---
HPI History of Present Illness Chief Complaint: General Illness Narrative Narrative: 83-year-old male presents with similar complaints as few days ago. Patient has history of back pain and was seen the other day for this. He had a CT of the abdomen pelvis without contrast performed which did not show anything acute. His lab work was normal. Urinalysis was negative. He presents with his granddaughter who states that he has been seeing things. She states he was saw a man and a woman in his house today and was talking to them. Patient also states he sees people floating around the room. Patient's granddaughter states he has a history of this distantly but they did not find a source for it. She denies a history of psychiatric disease. He has not had fevers, chills at home. He does complain of abdominal pain today which is in the left lower abdomen. He states that on his previous visit he had diarrhea and after his last visit he has not had a bowel movement for days. He has not taken anything for constipation. [facility] Medical History Anemia Atherosclerosis of coronary artery bypass graft without angina pectoris Atherosclerosis of coronary artery of [place] heart without angina pectoris Chronic combined systolic and diastolic CHF (congestive heart failure) Chronic renal failure, stage 3 (moderate) Chronic respiratory failure with hypoxia COPD (chronic obstructive pulmonary disease) Essential (primary) hypertension Former smoker Hyperlipemia Left bundle branch block Lymphedema Morbid obesity with BMI of 45.0-49.9, adult Non-rheumatic aortic stenosis Obstructive sleep apnea Ocular migraine AUTUMN treated with BiPAP PAF (paroxysmal atrial fibrillation) TIA (transient ischemic attack) Type 2 diabetes mellitus without complications Venous insufficiency of both lower extremities Home Medications aspirin 81 mg tablet,delayed release 81 mg PO DAILY HEART HEALTH 07/11/16 [History Last Taken 07/03/23] multivitamin 1 ea PO DAILY HEALTH MAINTENANCE 07/11/16 [History Last Taken 08/18/23] insulin regular human 100 unit/mL injection solution 12 unit subcut BID DIABETES 07/24/16 [History Last Taken 07/02/23] cholecalciferol (vitamin D3) 25 mcg (1,000 unit) tablet 25 mcg PO DAILY SUPPLEMENT 10/26/16 [History Last Taken 08/18/23] sertraline 25 mg tablet 25 mg PO DAILY DEPRESSION 01/10/18 [History Last Taken 08/18/23] famotidine 20 mg tablet 20 mg PO DAILY GERD 11/13/19 [History Last Taken 08/18/23] olanzapine 2.5 mg tablet 2.5 mg PO QHS DEPRESSION 11/13/19 [History Last Taken 08/17/23] allopurinol 300 mg tablet 300 mg PO DAILY GOUT 12/07/21 [History Last Taken 08/18/23] apixaban 2.5 mg tablet (Eliquis) 2.5 mg PO BID BLOOD THINNER 10/07/22 [History Last Taken 07/03/23] calcitriol 0.25 mcg capsule 0.5 mcg PO MOWEFR SUPPLEMENT 10/07/22 [History Last Taken 08/17/23] isosorbide mononitrate 30 mg tablet,extended release 24 hr 30 mg PO DAILY HEART #90 tabs 02/01/23 [Rx Last Taken 08/18/23] potassium chloride 20 mEq tablet,extended release 20 meq PO DAILY potassium #1 TAB 07/03/23 [Rx Last Taken Unknown] psyllium husk (aspartame) 3 gram oral powder packet (Daily Fiber (psyllium-aspartame)) 1 packet PO BID constipation #0 ea 07/03/23 [Rx Last Taken 07/03/23] levetiracetam 100 mg/mL oral solution (Keppra) 500 mg PO BID 08/18/23 [History Last Taken 08/18/23] menthol 0.44 %-zinc oxide 20.6 % topical ointment (Calmoseptine) 1 applic topical BID 08/18/23 [History Last Taken 08/18/23] nystatin 100,000 unit/gram topical powder (Nystop) 1 applic topical BID 08/18/23 [History Last Taken 08/18/23] sennosides 8.6 mg-docusate sodium 50 mg tablet (2-in-1 Laxative) 1 tab-cap PO BID 08/18/23 [History Last Taken 08/18/23] amlodipine 2.5 mg tablet 2.5 mg PO DAILY 09/16/23 [History Last Taken Unknown] furosemide 20 mg tablet 20 mg PO DAILY 30 days #30 tabs 09/22/23 [Rx Last Taken Unknown] insulin NPH isoph U-100 human 100 unit/mL subcutaneous suspension 20 unit (0.2 mL) subcut BID DIABETES #1 mL 09/22/23 [Rx Last Taken 07/03/23] tizanidine 2 mg tablet 2 mg PO Q8H PRN muscle spasticity #10 tabs 02/16/24 [Rx Last Taken Unknown] Allergy/AdvReac Type Severity Reaction Status Date / Time Penicillins [PCN] Allergy Swelling Verified 02/19/24 11:31 Family History Father Myocardial infarction Mother CVA (cerebral vascular accident) Brother CAD (coronary artery disease) Diabetes Surgical History H/O aortic valve replacement (02/24/16) H/O coronary artery bypass surgery (02/24/16) Hx of cholecystectomy (01/13/17) Social History household members: family and other details: Granddaughter. Smoking Status: Former smoker how long ago did patient quit smokin + years alcohol intake: never substance use type: does not use caffeine: Yes Type: carbonated beverages and tea ROS ROS ED Constitutional Constitutional ED: Denies chills, fever(s) or sweats Eyes Eyes: Denies blurry vision or change in vision ENT ENT ED: Denies ear pain or sore throat Cardiovascular Cardiovascular: Denies chest pain, palpitations or racing heartbeat Respiratory/Chest Respiratory/Chest: Denies cough, dyspnea or sputum Gastrointestinal Gastrointestinal: Reports abdominal pain; Denies constipation, diarrhea, nausea or vomiting Genitourinary Genitourinary ED: Denies dysuria, hematuria or urinary frequency Musculoskeletal Musculoskeletal: Reports back pain; Denies arthralgias, myalgias or neck pain Integumentary Denies abscess, Abrasions or rash Neurologic Neurologic: Denies headache(s), paresthesias or weakness Psychiatric Psychiatric: Reports other Details: Visual hallucinations ; Denies anxiety, depression, suicidal ideation or suicidal thoughts Endocrine Endocrinology: Denies polydipsia or polyuria EXAM Physical Exam Const Vital Signs: 02/19/24 11:34 02/19/24 12:00 02/19/24 12:32 Temperature 97.6 F L 97.6 F L Temperature Source Temporal Oral Pulse Rate 74 54 L Respiratory Rate 18 14 Respiratory Effort Short of Breath Blood Pressure 126/73 H 142/72 H Blood Pressure Mean 90 95 Pulse Ox 95 95 Oxygen Delivery Method Nasal Cannula Nasal Cannula Oxygen Flow Rate (L/min) 2 2 02/19/24 13:00 02/19/24 13:31 02/19/24 14:00 Temperature 97.4 F L 98.6 F Temperature Source Temporal Temporal Pulse Rate 62 55 L 56 L Respiratory Rate 14 17 17 Respiratory Effort Blood Pressure 134/84 H 144/81 H 134/61 H Blood Pressure Mean 100 102 85 Pulse Ox 98 99 98 Oxygen Delivery Method Nasal Cannula Nasal Cannula Nasal Cannula Oxygen Flow Rate (L/min) 2 02/19/24 12:50 02/19/24 13:00 02/19/24 13:15 Temperature Temperature Source Pulse Rate 60 62 62 Respiratory Rate 18 18 15 Respiratory Effort Blood Pressure 134/84 H 137/69 H Blood Pressure Mean 99 88 Pulse Ox 98 99 Oxygen Delivery Method Oxygen Flow Rate (L/min) 02/19/24 13:30 02/19/24 13:45 02/19/24 14:00 Temperature Temperature Source Pulse Rate 66 63 53 L Respiratory Rate 17 13 12 Respiratory Effort Blood Pressure 133/79 H 126/103 H 144/84 H Blood Pressure Mean 96 111 101 Pulse Ox 99 100 Oxygen Delivery Method Oxygen Flow Rate (L/min) 02/19/24 14:04 02/19/24 14:15 02/19/24 14:30 Temperature Temperature Source Pulse Rate 55 L Respiratory Rate 16 20 H 18 Respiratory Effort Blood Pressure 134/67 H Blood Pressure Mean 88 Pulse Ox 98 98 98 Oxygen Delivery Method Oxygen Flow Rate (L/min) 02/19/24 14:45 02/19/24 15:00 02/19/24 15:11 Temperature Temperature Source Pulse Rate 53 L 60 Respiratory Rate 13 18 Respiratory Effort Blood Pressure 146/82 H Blood Pressure Mean 99 Pulse Ox 99 95 Oxygen Delivery Method Oxygen Flow Rate (L/min) 02/19/24 16:00 02/19/24 16:28 Temperature 97.6 F L Temperature Source Pulse Rate 51 L 52 L Respiratory Rate 15 17 Respiratory Effort Blood Pressure 145/72 H 149/72 H Blood Pressure Mean 90 97 Pulse Ox 94 95 Oxygen Delivery Method Oxygen Flow Rate (L/min) General Appearance ED: NAD; Negative for pallor HEENT Reports moist mucous membranes Eyes PERRL and EOMs intact bilaterally Neck no lymphadenopathy Chest Wall inspection of chest normal Resp normal respiratory effort Auscultation: Negative for rales, rhonchi or wheezes Cardio regular rate and regular rhythm GI Palpation: tender LLQ Back/Spine no CVA tenderness Extremity normal to inspection Neuro CN's II-XII intact bilaterally and no sensory deficits noted Sensorium / Orientation: alert Motor Exam: general weakness Psych Psych Narrative: Confused. Hallucinating. Skin no wounds General Skin Exam: Negative for jaundice or pallor MDM MDM MDM Narrative Medical decision making narrative: Patient presenting with his granddaughter out of concern that he is confused and hallucinating. He does state that he sees people floating around the room she states that this is not a new issue for him and has had this in the past and did not find diagnosis for it. Patient also having abdominal pain and back pain which is not a new issue. He has been recently seen for this and had a workup which was negative. Patient's granddaughter brought him in for reevaluation because he now has been abdominal pain and has not had a bowel movement in several days. I obtained a CBC to assess white blood cell count, hemoglobin, platelets CMP to assess renal function, renal function electrolytes, glucose. Ammonia level was drawn to assess for hyperammonemia. Chest x-ray to rule out pneumonia. Patient also had urinalysis to assess for UTI which is negative. Ultimately all of his labs look unremarkable. I did not find a source for his confusion. We did obtain a CT of the brain which is negative and again since he is having worsening pain a CT of the abdomen pelvis at this time with IV contrast after hydrating him with fluids. This also shows no acute process. I had a long discussion with his granddaughter in the room and states she is concerned with leaving him because she works third shift I recommended that she admit him for placement however she states she is going to take care of and she does not want him admitted to the hospital. She will return if he has has any new problems. Patient discharged into her care. Impression: 1. Confusion 2. Abdominal pain 3. Back pain 4. Visual hallucination Lab Data Attestation: I reviewed the patient's lab results. Labs: Laboratory Results - last 24 hr 02/19/24 02/19/24 02/19/24 12:36 12:36 12:48 WBC 6.1 RBC 3.83 L Hgb 11.9 L Hct 35.9 L MCV 93.7 MCH 31.1 MCHC 33.1 RDW Std Deviation 48.8 H RDW Coeff of [place] 14.4 Plt Count 137 L MPV 10.6 Immature Gran % (Auto) 0.200 Neut % (Auto) 66.4 Lymph % (Auto) 23.0 [place] % (Auto) 5.9 Eos % (Auto) 4.2 Baso % (Auto) 0.3 Absolute Neuts (auto) 4.1 Absolute Lymphs (auto) 1.41 Nucleated RBC % 0 Sodium 142 Potassium 4.0 Chloride 117 H Carbon Dioxide 17.0 L Anion Gap 8 BUN 49 H Creatinine 2.50 H Estim Creat Clear Calc 25.73 Est GFR (MDRD) Af Amer 32 L Est GFR (MDRD) Non-Af 26 L BUN/Creatinine Ratio 19.6 Glucose 101 Calcium 8.7 Total Bilirubin 0.40 AST 20 ALT 15 L Alkaline Phosphatase 167 H Ammonia Cancelled 20.0 Troponin I High Sens 63 B-Natriuretic Peptide 271.7 H Total Protein 7.5 Albumin 3.0 L Globulin 4.5 H Albumin/Globulin Ratio 0.7 L Lipase 22 Urine Color Yellow Urine Clarity Clear Urine pH 6.0 Ur Specific [place] 1.015 Urine Protein 30 H Urine Glucose (UA) Normal Urine Ketones Negative Urine Occult Blood 10 H Urine Nitrite Negative Urine Bilirubin Negative Urine Urobilinogen Normal Ur Leukocyte Esterase Negative Urine RBC 0 SEEN Urine WBC 0 SEEN Ur Squamous Epith Cells 0 SEEN Urine Bacteria 0 SEEN Urine Mucus 0 SEEN Radiography Diagnostic Testing: Clinical Impression(s) from Imaging Studies Chest X-Ray 02/19/24 12:20 IMPRESSION: No radiographic evidence of acute cardiopulmonary disease. Electronically Signed: Dwight Silva MD at 13:16 EDT , Abdomen/Pelvis CT 02/19/24 13:03 IMPRESSION: 1. Nonspecific fluid-filled small bowel loops without evidence of bowel obstruction. 2. Thickening of the bladder wall probably due to underdistention. Cystitis is less likely. 3. Otherwise no focal acute inflammatory process. 4. Small hiatal hernia. Electronically Signed: Dwight Silva MD at 15:37 EDT , Brain CT 02/19/24 13:23 IMPRESSION: 1. No acute intracranial process. 2. Chronic involutional changes of the brain Electronically Signed: Dwight Silva MD at 15:28 EDT , Discharge Plan Triage Chief Complaint: General Illness ED Provider: Cesar Medina Dx/Rx/DC Orders Instructions: ED ALOC, ED Back Pain (Acute or Chronic), ED Abdominal Pain Unkn Cause Male... Prescriptions: No Action famotidine 20 mg tablet 20 mg PO DAILY olanzapine 2.5 mg tablet 2.5 mg PO QHS Eliquis 2.5 mg tablet 2.5 mg PO BID aspirin 81 MG tablet,delayed release (DR/EC) 81 mg PO DAILY Patient Comments: multivitamin 1 EACH tablet 1 ea PO DAILY insulin regular human 100 UNIT/ML solution 12 unit SC BID Patient Comments: afternoon and night cholecalciferol (vitamin D3) 1,000 UNIT tablet 25 mcg PO DAILY sertraline 25 MG tablet 25 mg PO DAILY calcitriol 0.25 mcg capsule 0.5 mcg PO MOWEFR allopurinol 300 mg tablet 300 mg PO DAILY amlodipine 2.5 mg tablet 2.5 mg PO DAILY furosemide 20 mg Tablet 20 mg PO DAILY 30 Days Qty: 30 0RF insulin NPH isoph U-100 human 100 unit/mL suspension 20 unit SC BID Qty: 1 0RF Rx Instructions: 5 UNITS IN THE MORNING 5 UNITS AT BEDTIME Daily Fiber (psyllium-aspart) 3 gram Powder In Packet 1 packet PO BID Qty: 0 0RF potassium chloride 20 mEq tablet extended release 20 meq PO DAILY Qty: 1 0RF menthol-zinc oxide [Calmoseptine] 0.44-20.6 % ointment 1 applic topical BID nystatin [Nystop] 100,000 unit/gram powder 1 applic topical BID sennosides-docusate sodium [2-in-1 Laxative] 8.6-50 mg tablet 1 tab-cap PO BID levetiracetam [Keppra] 100 mg/mL solution 500 mg PO BID tizanidine 2 mg tablet 2 mg PO Q8H PRN (Reason: muscle spasticity) Qty: 10 0RF isosorbide mononitrate 30 mg tablet extended release 24 hr 30 mg PO DAILY Qty: 90 4RF Primary Care Provider: Rios Downey Referrals: Rios Downey DO [Primary Care Provider] - Disposition Disposition: Home, Self Care Discharge Date/Time: 02/19/24 16:29
[2024-02-19] MEDS: Nystatin Powder 15gm Bottle 1 APPLIC TOPICAL (14:40)
== END 2024-02-19 16:29 | disposition home or self-care (01) ==
PROVIDERS: Emergency Provider Student in an Organized Health Care Education/Training Program; Visit Provider Student in an Organized Health Care Education/Training Program
DX: R41.0 Disorientation, unspecified (principal); J44.9 Chronic obstructive pulmonary disease, unspecified; I50.42 Chronic combined systolic (congestive) and diastolic (congestive) heart failure; N18.30 Chronic kidney disease, stage 3 unspecified; R10.9 Unspecified abdominal pain; M54.9 Dorsalgia, unspecified; I25.10 Atherosclerotic heart disease of native coronary artery without angina pectoris; R44.1 Visual hallucinations; G47.33 Obstructive sleep apnea (adult) (pediatric); Z87.891 Personal history of nicotine dependence; Z86.73 Personal history of transient ischemic attack (TIA), and cerebral infarction without residual deficits; Z95.1 Presence of aortocoronary bypass graft
CPT/HCPCS: 70450; 71045; 74177; 80053; 81001; 82140; 83690; 83880; 84484; 85025; 87631; 96360; 99284; J7030; Q9967; A4216

== ENCOUNTER 2024-03-14 14:45 | Outpatient (CLI) | payer MEDICARE, OTHER, SELFPAY ==
[2024-03-14 15:00] LABS: Absolute Lymphocyte Count 1.98 X10^3/uL (0.83-4.51); Absolute Neutrophil Count 4.9 X10^3/uL (2.0-7.7); Basophil# 0.05 X10^3/uL; Basophil% 0.6 % (0-1); Eosinophils% 3.9 % (0-5); Hematocrit 34.7 % (40-54); Hemoglobin 11.2 g/dL (13.0-16.5); Lymphocyte # 1.98 X10^3/ul (0.83-4.51); Lymphocyte % 25.4 % (19-41); Mean Corp Hgb Conc 32.3 g/dL (32-36); Mean Corpuscular Hgb 30.9 pg (27.0-32.0); Mean Corpuscular Volume 95.9 fL (80-94); Mean Platelet Vol. 10.3 fl (6.2-12.0); Monocyte# 0.54 X10^3/uL; Monocyte% 6.9 % (0-10); NRBC Flagged by Analyzer 0 % (0-5); Neutrophil # 4.89 X10^3/uL (2.7-7.7); Neutrophil % 62.9 % (47-70); Platelet Count 132 K/mm3 (150-450); RBC Distribution Width CV 14.7 % (11.6-14.6); Red Blood Count 3.62 M/mm3 (4.6-6.2); White Blood Count 7.8 K/mm3 (4.4-11.0)
[2024-03-14 15:27] LABS: Albumin, Serum 3.2 g/dL (3.2-5.0); BUN 46 mg/dL (7-18); BUN/Creat Ratio 22.7 RATIO (10-20); Calcium,Total 8.7 mg/dL (8.5-10.1); Chloride 112 mmol/L (98-107); Creatinine, Serum 2.03 mg/dL (0.70-1.30); EST Glomerular Filtration Rate 34 mL/min (>60); Est Glom Filt Rate - Afr Amer 41 mL/min (>60); Ferritin 122 ng/mL (26-388); Glucose 120 mg/dL (74-106); Iron 66 ug/dL (65-175); Iron Binding Capacity,Total 197 ug/dL (250-450); PERCENT IRON SATURATION 33.5 % (15.0-55.0); Phosphorus 2.4 mg/dL (2.5-4.9); Potassium 4.3 mmol/L (3.5-5.1); Sodium Level 140 mmol/L (136-145)
== END 2024-03-14 14:46 | disposition home or self-care (01) ==
LOC: MEDOUTP 14:46
PROVIDERS: Referring Provider Internal Medicine Nephrology; Visit Provider Internal Medicine Nephrology
DX: N18.5 Chronic kidney disease, stage 5 (principal); D63.1 Anemia in chronic kidney disease; N25.81 Secondary hyperparathyroidism of renal origin
CPT/HCPCS: 36415; 80069; 82728; 83540; 83550; 85025

== ENCOUNTER → 2024-03-22 | Outpatient (CLI) | payer MEDICARE, OTHER, SELFPAY ==
[2024-03-22 17:44] LABS: Hematocrit 35.8 % (40-54); Hemoglobin 11.4 g/dL (13.0-16.5); Mean Corp Hgb Conc 31.8 g/dL (32-36); Mean Corpuscular Hgb 30.6 pg (27.0-32.0); Mean Corpuscular Volume 96.2 fL (80-94); Mean Platelet Vol. 10.5 fl (6.2-12.0); Platelet Count 138 K/mm3 (150-450); RBC Distribution Width CV 15.1 % (11.6-14.6); RBC Distribution Width SD 52.4 fl (35.1-43.9); Red Blood Count 3.72 M/mm3 (4.6-6.2); White Blood Count 8.3 K/mm3 (4.4-11.0)
[2024-03-22 18:10] LABS: Hemoglobin A1c 5.2 % (3.8-5.6)
[2024-03-22 19:13] LABS: Vitamin B12 470 pg/mL (211-911); Vitamin D,25 Hydroxy 46.6 ng/mL
[2024-03-22 19:48] LABS: ALB/GLOB Ratio 0.8 RATIO (0.9-2.4); AST(SGOT) 17 U/L (15-37); Alanine Aminotransfer ALT/SGPT 14 U/L (16-61); Albumin, Serum 3.3 g/dL (3.2-5.0); Alkaline Phosphatase 141 U/L (45-117); Anion Gap 6 (5-15); BUN 40 mg/dL (7-18); BUN/Creat Ratio 18.2 RATIO (10-20); Calcium,Total 9.1 mg/dL (8.5-10.1); Chloride 113 mmol/L (98-107); Cholesterol 191 mg/dL (200); EST Glomerular Filtration Rate 31 mL/min (>60); Est Glom Filt Rate - Afr Amer 37 mL/min (>60); Globulin 4.1 g/dL (2.2-4.2); Glucose 133 mg/dL (74-106); High Density Lipoprotein 33 mg/dL; Magnesium 1.8 mg/dL (1.6-2.6); Potassium 4.7 mmol/L (3.5-5.1); Prealbumin 19.8 mg/dL (20.0-40.0); Protein, Total 7.4 g/dL (6.4-8.2); Sodium Level 143 mmol/L (136-145); T4 Free Direct 0.59 ng/dL (0.76-1.46); Thyroid Stim Hormone (TSH) 6.21 uIU/mL (0.358-3.74); Triglycerides 132 mg/dL; Uric Acid 5.5 mg/dL (3.5-7.2); Very Low Density Lipoprotein 26 mg/dL (5-40)
[2024-03-26 12:08] LABS: ANTINUCLEAR ANTIBODIES DIRECT Negative (Negative)
[2024-03-26 19:07] LABS: KEPPRA (LEVETIRACETAM) 55.2 ug/mL (10.0-40.0); LDL, Direct 120295 140 mg/dL (0-99)
== END | disposition home or self-care (01) ==
LOC: MTLAB 16:37
DX: E11.21 Type 2 diabetes mellitus with diabetic nephropathy (principal); N18.4 Chronic kidney disease, stage 4 (severe); E11.22 Type 2 diabetes mellitus with diabetic chronic kidney disease; E78.2 Mixed hyperlipidemia; I12.9 Hypertensive chronic kidney disease with stage 1 through stage 4 chronic kidney disease, or unspecified chronic kidney disease; D69.6 Thrombocytopenia, unspecified; F33.9 Major depressive disorder, recurrent, unspecified; Z87.442 Personal history of urinary calculi
CPT/HCPCS: 36415; 80053; 80061; 80177; 82306; 82607; 82746; 83036; 83721; 83735; 84134; 84439; 84443; 84550; 85027; 86038

== ENCOUNTER 2024-04-11 14:41 | Outpatient (CLI) | payer MEDICARE, OTHER, SELFPAY ==
[2024-04-11 15:20] LABS: Absolute Lymphocyte Count 1.64 X10^3/uL (0.83-4.51); Absolute Neutrophil Count 6.1 X10^3/uL (2.0-7.7); Basophil# 0.06 X10^3/uL; Basophil% 0.7 % (0-1); Eosinophil# 0.18 X10^3/uL; Eosinophils% 2.1 % (0-5); Hematocrit 34.6 % (40-54); Hemoglobin 11.1 g/dL (13.0-16.5); Lymphocyte # 1.64 X10^3/ul (0.83-4.51); Mean Corp Hgb Conc 32.1 g/dL (32-36); Mean Corpuscular Hgb 31.3 pg (27.0-32.0); Mean Corpuscular Volume 97.5 fL (80-94); Mean Platelet Vol. 10.5 fl (6.2-12.0); Monocyte# 0.58 X10^3/uL; Monocyte% 6.7 % (0-10); NRBC Flagged by Analyzer 0 % (0-5); Neutrophil # 6.13 X10^3/uL (2.7-7.7); Neutrophil % 71.2 % (47-70); Platelet Count 149 K/mm3 (150-450); RBC Distribution Width CV 14.4 % (11.6-14.6); RBC Distribution Width SD 52.2 fl (35.1-43.9); Red Blood Count 3.55 M/mm3 (4.6-6.2); White Blood Count 8.6 K/mm3 (4.4-11.0)
[2024-04-11 15:40] LABS: PTHIN 49.6 pg/mL (18.4-80.1)
[2024-04-11 15:42] LABS: Albumin, Serum 3.3 g/dL (3.2-5.0); BUN 35 mg/dL (7-18); BUN/Creat Ratio 14.6 RATIO (10-20); Calcium,Total 9.1 mg/dL (8.5-10.1); Chloride 110 mmol/L (98-107); EST Glomerular Filtration Rate 28 mL/min (>60); Est Glom Filt Rate - Afr Amer 33 mL/min (>60); Ferritin 139 ng/mL (26-388); Glucose 146 mg/dL (74-106); Iron 74 ug/dL (65-175); Iron Binding Capacity,Total 225 ug/dL (250-450); PERCENT IRON SATURATION 32.9 % (15.0-55.0); Phosphorus 2.7 mg/dL (2.5-4.9); Potassium 4.8 mmol/L (3.5-5.1); Sodium Level 140 mmol/L (136-145)
== END 2024-04-11 23:59 | disposition home or self-care (01) ==
LOC: MEDOUTP 14:41
PROVIDERS: Referring Provider Internal Medicine Nephrology; Visit Provider Internal Medicine Nephrology
DX: N18.5 Chronic kidney disease, stage 5 (principal); D63.1 Anemia in chronic kidney disease; N25.81 Secondary hyperparathyroidism of renal origin
CPT/HCPCS: 36415; 80069; 82728; 83540; 83550; 83970; 85025

== ENCOUNTER 2024-05-09 14:44 | Outpatient (CLI) | payer MEDICARE, OTHER, SELFPAY ==
[2024-05-09 15:11] LABS: Absolute Lymphocyte Count 1.76 X10^3/uL (0.83-4.51); Absolute Neutrophil Count 4.8 X10^3/uL (2.0-7.7); Basophil# 0.03 X10^3/uL; Basophil% 0.4 % (0-1); Eosinophil# 0.23 X10^3/uL; Eosinophils% 3.1 % (0-5); Hematocrit 34.2 % (40-54); Lymphocyte # 1.76 X10^3/ul (0.83-4.51); Lymphocyte % 23.9 % (19-41); Mean Corp Hgb Conc 32.2 g/dL (32-36); Mean Corpuscular Hgb 31.6 pg (27.0-32.0); Mean Corpuscular Volume 98.3 fL (80-94); Mean Platelet Vol. 9.9 fl (6.2-12.0); Monocyte# 0.52 X10^3/uL; Monocyte% 7.1 % (0-10); NRBC Flagged by Analyzer 0 % (0-5); Neutrophil # 4.81 X10^3/uL (2.7-7.7); Neutrophil % 65.2 % (47-70); Platelet Count 124 K/mm3 (150-450); RBC Distribution Width SD 50.2 fl (35.1-43.9); Red Blood Count 3.48 M/mm3 (4.6-6.2); White Blood Count 7.4 K/mm3 (4.4-11.0)
[2024-05-09 15:29] LABS: Albumin, Serum 3.4 g/dL (3.2-5.0); BUN 48 mg/dL (7-18); BUN/Creat Ratio 20.5 RATIO (10-20); Calcium,Total 9.1 mg/dL (8.5-10.1); Chloride 109 mmol/L (98-107); Creatinine, Serum 2.34 mg/dL (0.70-1.30); EST Glomerular Filtration Rate 28 mL/min (>60); Est Glom Filt Rate - Afr Amer 34 mL/min (>60); Ferritin 147 ng/mL (26-388); Glucose 93 mg/dL (74-106); Iron 58 ug/dL (65-175); Iron Binding Capacity,Total 217 ug/dL (250-450); PERCENT IRON SATURATION 26.7 % (15.0-55.0); Phosphorus 3.6 mg/dL (2.5-4.9); Potassium 4.4 mmol/L (3.5-5.1); Sodium Level 140 mmol/L (136-145)
== END 2024-05-09 23:59 | disposition home or self-care (01) ==
LOC: MEDOUTP 14:46
PROVIDERS: Referring Provider Internal Medicine Nephrology; Visit Provider Internal Medicine Nephrology
DX: N18.5 Chronic kidney disease, stage 5 (principal); D63.1 Anemia in chronic kidney disease; N25.81 Secondary hyperparathyroidism of renal origin
CPT/HCPCS: 36415; 80069; 82728; 83540; 83550; 85025

== ENCOUNTER → 2024-05-30 | Outpatient (CLI) | payer MEDICARE, OTHER, SELFPAY ==
[2024-05-30 17:37] LABS: Absolute Lymphocyte Count 2.36 X10^3/uL (0.83-4.51); Absolute Neutrophil Count 4.8 X10^3/uL (2.0-7.7); Basophil# 0.05 X10^3/uL; Basophil% 0.6 % (0-1); Eosinophil# 0.18 X10^3/uL; Eosinophils% 2.3 % (0-5); Hematocrit 35.5 % (40-54); Lymphocyte # 2.36 X10^3/ul (0.83-4.51); Lymphocyte % 29.8 % (19-41); Mean Corpuscular Hgb 30.7 pg (27.0-32.0); Mean Corpuscular Volume 99.2 fL (80-94); Mean Platelet Vol. 11.5 fl (6.2-12.0); Monocyte# 0.47 X10^3/uL; Monocyte% 5.9 % (0-10); NRBC Flagged by Analyzer 0 % (0-5); Neutrophil # 4.84 X10^3/uL (2.7-7.7); Platelet Count 135 K/mm3 (150-450); RBC Distribution Width CV 13.7 % (11.6-14.6); RBC Distribution Width SD 49.9 fl (35.1-43.9); Red Blood Count 3.58 M/mm3 (4.6-6.2); White Blood Count 7.9 K/mm3 (4.4-11.0)
[2024-05-30 17:49] LABS: Protein, Urine (Random) 71.1 mg/dL (<11.9); Protein:Creat Ratio 690 mg/g CRE (0-200)
[2024-05-30 18:02] LABS: Albumin, Serum 3.4 g/dL (3.2-5.0); BUN 38 mg/dL (7-18); BUN/Creat Ratio 16.8 RATIO (10-20); Calcium,Total 9.3 mg/dL (8.5-10.1); Chloride 110 mmol/L (98-107); Creatinine, Serum 2.26 mg/dL (0.70-1.30); EST Glomerular Filtration Rate 30 mL/min (>60); Est Glom Filt Rate - Afr Amer 36 mL/min (>60); Ferritin 134 ng/mL (26-388); Glucose 105 mg/dL (74-106); Iron 86 ug/dL (65-175); Iron Binding Capacity,Total 234 ug/dL (250-450); PERCENT IRON SATURATION 36.8 % (15.0-55.0); Potassium 4.8 mmol/L (3.5-5.1); Sodium Level 140 mmol/L (136-145); Uric Acid 5.5 mg/dL (3.5-7.2)
[2024-05-31 12:47] LABS: PTHIN 48.7 pg/mL (18.4-80.1)
== END | disposition home or self-care (01) ==
LOC: MTLAB 15:25
PROVIDERS: Referring Provider Internal Medicine Nephrology; Visit Provider Internal Medicine Nephrology
DX: I12.9 Hypertensive chronic kidney disease with stage 1 through stage 4 chronic kidney disease, or unspecified chronic kidney disease (principal); N18.4 Chronic kidney disease, stage 4 (severe); D63.1 Anemia in chronic kidney disease
CPT/HCPCS: 36415; 80069; 82570; 82728; 83540; 83550; 83970; 84156; 84550; 85025

== ENCOUNTER 2024-06-06 14:45 | Outpatient (CLI) | payer MEDICARE, OTHER, SELFPAY | END 2024-06-06 23:59 | disposition home or self-care (01) | LOC: MEDOUTP 14:45 | PROVIDERS: Referring Provider Internal Medicine Nephrology; Visit Provider Internal Medicine Nephrology | DX: N18.5 Chronic kidney disease, stage 5 (principal); D63.1 Anemia in chronic kidney disease ==

== ENCOUNTER 2024-07-04 14:33 | Outpatient (CLI) | payer MEDICARE, OTHER, SELFPAY ==
[2024-07-04 14:57] LABS: Absolute Lymphocyte Count 2.19 X10^3/uL (0.83-4.51); Absolute Neutrophil Count 4.8 X10^3/uL (2.0-7.7); Basophil# 0.04 X10^3/uL; Basophil% 0.5 % (0-1); Eosinophil# 0.21 X10^3/uL; Eosinophils% 2.7 % (0-5); Hematocrit 36.9 % (40-54); Hemoglobin 11.8 g/dL (13.0-16.5); Lymphocyte # 2.19 X10^3/ul (0.83-4.51); Lymphocyte % 28.5 % (19-41); Mean Corpuscular Hgb 31.1 pg (27.0-32.0); Mean Corpuscular Volume 97.4 fL (80-94); Mean Platelet Vol. 10.4 fl (6.2-12.0); Monocyte# 0.46 X10^3/uL; NRBC Flagged by Analyzer 0 % (0-5); Neutrophil # 4.76 X10^3/uL (2.7-7.7); Neutrophil % 61.9 % (47-70); Platelet Count 133 K/mm3 (150-450); RBC Distribution Width CV 13.5 % (11.6-14.6); RBC Distribution Width SD 47.8 fl (35.1-43.9); Red Blood Count 3.79 M/mm3 (4.6-6.2); White Blood Count 7.7 K/mm3 (4.4-11.0)
[2024-07-04 15:18] LABS: ALB/GLOB Ratio 0.8 RATIO (0.9-2.4); AST(SGOT) 15 U/L (15-37); Alanine Aminotransfer ALT/SGPT 12 U/L (16-61); Albumin, Serum 3.5 g/dL (3.2-5.0); Alkaline Phosphatase 150 U/L (45-117); Anion Gap 2 (5-15); BUN 47 mg/dL (7-18); BUN/Creat Ratio 18.9 RATIO (10-20); Calcium,Total 9.2 mg/dL (8.5-10.1); Chloride 115 mmol/L (98-107); Creatinine, Serum 2.49 mg/dL (0.70-1.30); EST Glomerular Filtration Rate 27 mL/min (>60); Est Glom Filt Rate - Afr Amer 32 mL/min (>60); Ferritin 120 ng/mL (26-388); Globulin 4.4 g/dL (2.2-4.2); Glucose 113 mg/dL (74-106); Iron 78 ug/dL (65-175); Iron Binding Capacity,Total 231 ug/dL (250-450); PERCENT IRON SATURATION 33.8 % (15.0-55.0); Phosphorus 2.8 mg/dL (2.5-4.9); Potassium 4.6 mmol/L (3.5-5.1); Protein, Total 7.9 g/dL (6.4-8.2); Sodium Level 142 mmol/L (136-145)
[2024-07-04 15:20] LABS: Hemoglobin A1c 5.2 % (3.8-5.6)
== END 2024-07-04 23:59 | disposition home or self-care (01) ==
LOC: MEDOUTP 14:35
PROVIDERS: Referring Provider Internal Medicine Nephrology; Visit Provider Internal Medicine Nephrology
DX: E11.22 Type 2 diabetes mellitus with diabetic chronic kidney disease (principal); N18.5 Chronic kidney disease, stage 5; E11.65 Type 2 diabetes mellitus with hyperglycemia; D63.1 Anemia in chronic kidney disease; N25.81 Secondary hyperparathyroidism of renal origin
CPT/HCPCS: 36415; 80053; 82728; 83036; 83540; 83550; 84100; 85025

== ENCOUNTER 2024-08-02 14:47 | Outpatient (CLI) | payer MEDICARE, OTHER, SELFPAY ==
[2024-08-02 15:33] LABS: Absolute Lymphocyte Count 1.95 X10^3/uL (0.83-4.51); Absolute Neutrophil Count 4.8 X10^3/uL (2.0-7.7); Basophil# 0.04 X10^3/uL; Basophil% 0.5 % (0-1); Eosinophil# 0.21 X10^3/uL; Eosinophils% 2.8 % (0-5); Hematocrit 37.1 % (40-54); Lymphocyte # 1.95 X10^3/ul (0.83-4.51); Mean Corp Hgb Conc 32.3 g/dL (32-36); Mean Corpuscular Hgb 31.3 pg (27.0-32.0); Mean Corpuscular Volume 96.6 fL (80-94); Mean Platelet Vol. 11.3 fl (6.2-12.0); Monocyte# 0.46 X10^3/uL; Monocyte% 6.1 % (0-10); NRBC Flagged by Analyzer 0 % (0-5); Neutrophil # 4.81 X10^3/uL (2.7-7.7); Neutrophil % 64.3 % (47-70); Platelet Count 126 K/mm3 (150-450); RBC Distribution Width CV 13.7 % (11.6-14.6); RBC Distribution Width SD 47.9 fl (35.1-43.9); Red Blood Count 3.84 M/mm3 (4.6-6.2); White Blood Count 7.5 K/mm3 (4.4-11.0)
[2024-08-02 15:53] LABS: Albumin, Serum 3.5 g/dL (3.2-5.0); BUN 64 mg/dL (7-18); Calcium,Total 9.3 mg/dL (8.5-10.1); Chloride 111 mmol/L (98-107); Creatinine, Serum 2.46 mg/dL (0.70-1.30); EST Glomerular Filtration Rate 27 mL/min (>60); Est Glom Filt Rate - Afr Amer 33 mL/min (>60); Glucose 148 mg/dL (74-106); Iron Binding Capacity,Total 251 ug/dL (250-450); PTHIN 56.4 pg/mL (18.4-80.1); Phosphorus 3.3 mg/dL (2.5-4.9); Potassium 4.4 mmol/L (3.5-5.1); Sodium Level 142 mmol/L (136-145)
[2024-08-02 23:05] LABS: Xtra Tube EP Lab EXTRA TUBE
[2024-08-03 12:32] LABS: Ferritin 134 ng/mL (26-388); Iron 97 ug/dL (65-175); PERCENT IRON SATURATION 38.6 % (15.0-55.0)
== END 2024-08-02 23:59 | disposition home or self-care (01) ==
LOC: MEDOUTP 14:48
PROVIDERS: Referring Provider Internal Medicine Nephrology; Visit Provider Internal Medicine Nephrology
DX: N18.5 Chronic kidney disease, stage 5 (principal); D63.1 Anemia in chronic kidney disease
CPT/HCPCS: 36415; 80069; 82728; 83540; 83550; 83970; 85025

== ENCOUNTER 2024-08-30 14:45 | Outpatient (CLI) | payer MEDICARE, OTHER, SELFPAY ==
[2024-08-30 15:02] LABS: Absolute Lymphocyte Count 2.15 X10^3/uL (0.83-4.51); Absolute Neutrophil Count 4.6 X10^3/uL (2.0-7.7); Basophil# 0.04 X10^3/uL; Basophil% 0.5 % (0-1); Eosinophil# 0.23 X10^3/uL; Eosinophils% 3.1 % (0-5); Hematocrit 37.6 % (40-54); Lymphocyte # 2.15 X10^3/ul (0.83-4.51); Lymphocyte % 28.6 % (19-41); Mean Corp Hgb Conc 31.9 g/dL (32-36); Mean Corpuscular Volume 97.2 fL (80-94); Mean Platelet Vol. 10.8 fl (6.2-12.0); Monocyte# 0.51 X10^3/uL; Monocyte% 6.8 % (0-10); NRBC Flagged by Analyzer 0 % (0-5); Neutrophil # 4.56 X10^3/uL (2.7-7.7); Neutrophil % 60.7 % (47-70); Platelet Count 125 K/mm3 (150-450); RBC Distribution Width CV 13.7 % (11.6-14.6); RBC Distribution Width SD 48.8 fl (35.1-43.9); Red Blood Count 3.87 M/mm3 (4.6-6.2); White Blood Count 7.5 K/mm3 (4.4-11.0)
[2024-08-30 15:24] LABS: Albumin, Serum 3.5 g/dL (3.2-5.0); BUN 44 mg/dL (7-18); BUN/Creat Ratio 19.6 RATIO (10-20); Calcium,Total 9.8 mg/dL (8.5-10.1); Chloride 112 mmol/L (98-107); Creatinine, Serum 2.25 mg/dL (0.70-1.30); EST Glomerular Filtration Rate 30 mL/min (>60); Est Glom Filt Rate - Afr Amer 36 mL/min (>60); Ferritin 144 ng/mL (26-388); Glucose 110 mg/dL (74-106); Iron 82 ug/dL (65-175); Iron Binding Capacity,Total 216 ug/dL (250-450); Phosphorus 3.3 mg/dL (2.5-4.9); Potassium 4.8 mmol/L (3.5-5.1); Sodium Level 142 mmol/L (136-145)
== END 2024-08-30 23:59 | disposition home or self-care (01) ==
LOC: MEDOUTP 14:45
PROVIDERS: Referring Provider Internal Medicine Nephrology; Visit Provider Internal Medicine Nephrology
DX: N18.5 Chronic kidney disease, stage 5 (principal); D63.1 Anemia in chronic kidney disease
CPT/HCPCS: 36415; 80069; 82728; 83540; 83550; 85025

== ENCOUNTER 2024-10-02 14:55 | Outpatient (CLI) | payer MEDICARE, OTHER, SELFPAY ==
[2024-10-02 15:25] LABS: Absolute Lymphocyte Count 1.98 X10^3/uL (0.83-4.51); Absolute Neutrophil Count 5.9 X10^3/uL (2.0-7.7); Basophil# 0.02 X10^3/uL; Basophil% 0.2 % (0-1); Eosinophil# 0.22 X10^3/uL; Eosinophils% 2.6 % (0-5); Hemoglobin 11.1 g/dL (13.0-16.5); Lymphocyte # 1.98 X10^3/ul (0.83-4.51); Mean Corp Hgb Conc 32.6 g/dL (32-36); Mean Corpuscular Hgb 31.8 pg (27.0-32.0); Mean Corpuscular Volume 97.4 fL (80-94); Mean Platelet Vol. 10.8 fl (6.2-12.0); Monocyte% 5.8 % (0-10); NRBC Flagged by Analyzer 0 % (0-5); Neutrophil # 5.85 X10^3/uL (2.7-7.7); Neutrophil % 67.9 % (47-70); Platelet Count 142 K/mm3 (150-450); RBC Distribution Width SD 49.3 fl (35.1-43.9); Red Blood Count 3.49 M/mm3 (4.6-6.2); White Blood Count 8.6 K/mm3 (4.4-11.0)
[2024-10-02 16:15] LABS: Albumin, Serum 3.3 g/dL (3.2-5.0); BUN 60 mg/dL (7-18); BUN/Creat Ratio 24.2 RATIO (10-20); Calcium,Total 9.4 mg/dL (8.5-10.1); Chloride 111 mmol/L (98-107); Creatinine, Serum 2.48 mg/dL (0.70-1.30); EST Glomerular Filtration Rate 27 mL/min (>60); Est Glom Filt Rate - Afr Amer 32 mL/min (>60); Ferritin 191 ng/mL (26-388); Glucose 148 mg/dL (74-106); Iron 81 ug/dL (65-175); Iron Binding Capacity,Total 226 ug/dL (250-450); PERCENT IRON SATURATION 35.8 % (15.0-55.0); Phosphorus 3.1 mg/dL (2.5-4.9); Potassium 4.4 mmol/L (3.5-5.1); Sodium Level 141 mmol/L (136-145)
--- OUTSIDE RECORDS SUMMARY | 2024-10-02 19:55 | XMS RPT_ITS | CCD ---
Author Organization [facility] Care Team Providers Care Spice Grinder Name Role Phone SOBEIDA MIRANDA DO Primary Care Physician SOBEIDA MIRANDA DO Primary Care Unavailable ALY BAIG, JENNIFER Tobias Attending Unavailable Allergies Allergy Classification Reported Allergen(s) Allergy Type Date of Onset Reaction(s) Facility (1 source) Penicillins; Translations: [penicillins] Drug allergy Hives [facility] (1 source) Pravastatin; Translations: [pravastatin] Drug Allergy Cramp (finding) [facility] Medications Current Medications Medication Drug Class(es) Dates Sig (Normalized) Sig (Original) allopurinol 300 mg oral tablet (1 source) Xanthine Oxidase Inhibitor Start: 09-17-2022 allopurinol 300 mg oral tablet Dose : 150 mg = 0.5 tab(s), Oral, qDay, # 45 tab(s), 1 Refill(s), Pharmacy: [facility], 161.5, cm, 07/10/22 9:52:00 EDT, Height, kg, 07/10/22 9:52:00 EDT, Dosing Weight Start Date: 09/17/22 Status: Ordered apixaban 2.5 mg oral tablet (1 source) Factor Xa Inhibitor Start: 08-17-2022 Eliquis 2.5 mg oral tablet Dose : 2.5 mg = 1 tab(s), Oral, BID, # 180 tab(s), 3 Refill(s), Pharmacy: [facility], 161.5, cm, 07/10/22 9:52:00 EDT, Height, [...] qDay, # 90 tab(s), 1 Refill(s), Pharmacy: [facility], 165, cm, 02/17/23 9:03:00 EDT, Height, kg, 02/17/23 9:03:00 EDT, Dosing Weight Start Date: 03/25/23 Status: Ordered calcitriol 0.42792 mg oral capsule (1 source) Vitamin D3 [...] BID, # 90 tab(s), 1 Refill(s), Pharmacy: [facility], 165, cm, 02/17/23 9:03:00 EDT, Height, kg, 02/17/23 9:03:00 EDT, Dosing Weight Start Date: 03/25/23 Status: Ordered metoprolol tartrate 25 mg oral tablet (1 source) beta-Adrenergic Karyn Start: 03-25-2023 metoprolol tartrate 25 mg oral tablet Dose : 12.5 mg = 0.5 tab(s), Oral, BID, # 90 tab(s), 1 Refill(s), Pharmacy: [facility], 165, cm, 02/17/23 [...] attention, # 25 tab(s), 11 Refill(s), Pharmacy: [id number], 161, cm, 04/30/21 [...] qHS, # 90 tab(s), 1 Refill(s), Pharmacy: [facility], 165, cm, 02/17/23 9:03:00 EDT, Height, kg, 02/17/23 9:03:00 EDT, Dosing Weight Start Date: 03/25/23 Status: Ordered sertraline 25 mg oral tablet (1 source) Serotonin Reuptake Inhibitor Start: 03-25-2023 sertraline 25 mg oral tablet Dose : 25 mg = 1 tab(s), Oral, Daily, # 90 tab(s), 1 Refill(s), Pharmacy: [facility], 165, cm, 02/17/23 [...] Name Value Interpretation Reference Range Facil ity No Panel Informationon 05-12 Culture Urine <10,000 cfu/ml. No Significant growth. Sensitivity not indicated. [facility] Encounters Encounter Date Encounter Type Care Provider Facility Start: 05-12-2023 End: 05-17-2023 ambulatory SOBEIDA MIRANDA Facility:B Start: 05-12-2023 End: 05-16-2023 Outreach Lab JENNIFER LU MD [facility] Procedures Date Procedure Procedure Detail Performing Clinician Start: 01-13-2017 Cholecystectomy JENNIFER LU MD Start: 02-24-2016 Coronary bypass lilliana t angiography JENNIFER LU MD History of coronary artery bypass grafting S/P CABG x 4 JENNIFER LU MD Immunizations Immunization Date Immunization Notes Care Provider Fa cili 10-06-2022 influenza, high dose seasonal, preservative-free JENNIFER LU MD [facility] 03-16-2022 COVID-19, mRNA, LNP- S, PF, 100 mcg or 50 mcg dose; Translations: [Moderna COVID-19 Vaccine] JENNIFER LU MD [facility] 12-03-2021 COVID-19, mRNA, LNP- S, PF, 100 mcg or 50 mcg dose; Translations: [Moderna COVID-19 Vaccine] JENNIFER LU MD [facility] 09-17-2021 influenza, high dose seasonal, preservative-free; Translations: [Fluad Quadrivalent PF ] JENNIFER LU MD [facility] 01-20-2021 COVID-19, mRNA, LNP- S, PF, 100 mcg or 50 mcg dose; Translations: [Moderna COVID-19 Vaccine] JENNIFER LU MD [facility] 12-25-2020 SARS-CoV-2 (COVID-19 ) mRNA-1273 vaccine JENNIFER LU MD [facility] 08-15-2020 influenza, injectabl e, quadrivalent, preservative free; Translations: [Fluarix PF Quadrivalent ] JENNIFER LU MD [facility] 09-13-2019 influenza, injectabl e, quadrivalent, preservative free; Translations: [Fluarix PF Quadrivalent ] JENNIFER LU MD [facility] 09-04-2018 influenza virus vacc ine, unspecified formulation JENNIFER LU MD [facility] 09-21-2017 influenza virus vacc ine, unspecified formulation JENNIFER LU MD [facility] 08-24-2016 influenza virus vacc ine, unspecified formulation JENNIFER LU MD [facility] 07-29-2016 influenza virus vacc ine, unspecified formulation JENNIFER LU MD [facility] 10-03-2015 influenza virus vacc ine, unspecified formulation JENNIFER LU MD [facility] 03-03-2015 pneumococcal conjuga te vaccine, 13 valent JENNIFER LU MD [facility] 10-09-2014 influenza virus vacc ine, unspecified formulation JENNIFER LU MD [facility] 09-17-2013 influenza virus vacc ine, unspecified formulation JENNIFER LU MD [facility] 10-02-2012 pneumococcal polysaccharide vaccine, 23 valent JENNIFER LU MD [facility] 08-04-2011 tetanus toxoid, redu steph diphtheria toxoid, and acellular pertussis vaccine, adsorbed JENNIFER LU MD [facility] 08-28-2006 pneumococcal polysaccharide vaccine, 23 valent JENNIFER LU MD [facility] Payers Date Payer Category Payer Medicare [id number] 2023 Unknown [id number] 1940 Unknown [id number] Social History Date Type Detail Facility Start: 06-15-2019 Tobacco smoking status Ex-smoker (fi nding) [facility] Comment on above: no smoke exposure Sex Assigned At Male [facility] Clinical Note 05-14-2023 Note Date & [...] Locations *1: This test was performed at: [facility], [address] [place] [address], [facility] , [facility] ([place]) Evaluation + Plan note Laboratory Note Date & Type Note Facility Evaluation + Plan note Future Appointments Appointment Date:07/25/2024 04:00:00 PM Scheduled Provider:SOBEIDA MIRANDA DO Location:[facility] Appointment Type: OV Future Scheduled TestsProstate Specific Antigen 06/08/22Thyroid Stimulating Hormone 06/08/22Free T4 06/08/22Lipid Profile 06/08/22Hepatitis C Antibody IgG 06/08/22Microalbumin Level Urine 06/08/22Prothrombin Time - Panel 06/08/22Prothrombin Time - Panel 07/10/22Prothrombin Time - Panel 07/14/22Vitamin D Level 06/08/22Complete Metabolic Panel 06/08/22 [facility] Hospital course Narrative Note Date & Type Note Facility Hospital course Narrative No data available for this section [facility] Hospital Discharge instructions Note Date & Type Note Facility Hospital Discharge instructions No data available for this section [facility] Progress note Note Date & Type Note Facility Progress note No data available for this section [facility] Summary Purpose Family History No Family History Records Found Advance Directives No Advanced Directives Records Found Additional Source Comments Patient Care team informatio n (unrecognized section and content) Care Team Personnel Name: MACO HICKEY MD Position: P3 Physician - Nephrology Member Role: Hogshead Roller Address: Address: [address] [facility] [place] [address]- Name: RODRIGO MÁRQUEZ APRN-LAUNDRY SUPERVISOR Member Role: Investigator Fraud Address: Address: [address] [place] [address] [place] [address] [place] Name: ANTHONY DOLAN LAUNDRY SUPERVISOR Member Role: Water Taxi Ferry Operator Address: Address: [address] [place] [address]- Name: SONNY LOVE MD Position: P3 Physician - Endocrinology Member Role: Isolation Washer Address: Address: [address] [place] [address]- [place] Name: SOBEIDA MIRANDA DO Position: P4 Physician - Primary Care Member Role: Primary Care Physician Address: Address: [address] [facility] [place] [address]- Care Team Related Persons Name: VAHE ALARCON (unrecognized sect ion and content) No Status Records Found INFORMATION SOURCE (unrecogn ized section and content) DATE CREATED AUTHOR 05/29/2023 [facility] ([place]) FOR RECORDS PERTAINING TO PATIENTS WHO ARE [...] BE BASED ON THE PRIMARY CLINICAL RECORDS. [employer] [facility]. provides no warranty or guarantee of the accuracy or completeness of information in this document.
== END 2024-10-02 23:59 | disposition home or self-care (01) ==
LOC: MEDOUTP 14:55
PROVIDERS: Referring Provider Internal Medicine Nephrology; Visit Provider Internal Medicine Nephrology
DX: N18.5 Chronic kidney disease, stage 5 (principal); D63.1 Anemia in chronic kidney disease
CPT/HCPCS: 36415; 80069; 82728; 83540; 83550; 85025

== ENCOUNTER → 2024-10-10 | Outpatient (CLI) | payer MEDICARE, OTHER, SELFPAY ==
--- NOTE | 2024-10-10 14:58 | ECHOCS_ITS ---
Reason For Study: Prosthetic AV Procedure This was a 2D Doppler, Color Flow transthoracic echocardiogram. The study was technically difficult. Contrast injection was performed. Exam performed in department. Left Ventricle Normal LV size. The left ventricular ejection fraction is 40 %. No regional wall motion abnormalities noted. Right Ventricle Mildly dilated right ventricle. Normal systolic function. Atria The left atrium is moderately enlarged. The right atrium is mildly enlarged. Mitral Valve There is moderate to severe mitral annular calcification. Mean transmitral valve gradient 4 mmHg. Mild mitral valve stenosis. Tricuspid Valve Normal tricuspid valve. Mild to moderate (1-2+) tricuspid valve insufficiency. Pulmonary artery systolic pressure is 43 mmHg. Aortic Valve Peak aortic valve gradient 24 mmHg. Mean aortic valve gradient 13 mmHg. Bioprosthetic aortic valve. Great Vessels Normal aortic root. The pulmonary artery is normal size. Inferior vena cava collapse with respiration. Pericardium/Pleural No pericardial effusion. Medication 22 gauge I.V. with prn adaptor inserted into right arm. Diluted definity 2.5ml given slow IV push to enhance endocardial definition. MMode/2D Measurements & Calculations LVIDd: 5.2 cm IVSd: 1.3 cm LVOT diam: 2.0 cm LVIDs: 4.1 cm LVPWd: 1.1 cm LVOT area: 3.0 cm2 RVDd: 4.6 cm FS: 21.1 % Ao root diam: 3.6 cm LAV(MOD-bp): 78.5 ml LVAd ap4: 27.5 cm2 LAV(MOD-bp) Indexed: 37.1 ml/m2 LVLd ap4: 8.0 cm LAV(MOD-sp2): 76.3 ml EDV(MOD-sp4): 75.2 ml LAV(MOD-sp4): 76.8 ml EDV(sp4-el): 80.9 ml LVAs ap4: 19.7 cm2 LVLs ap4: 7.1 cm ESV(MOD-sp4): 43.0 ml ESV(sp4-el): 46.3 ml EF(MOD-sp4): 42.8 % EF(sp4-el): 42.8 % SV(MOD-sp4): 32.2 ml SV(sp4-el): 34.6 ml LA A4 area: 25.0 cm2 SI(MOD-sp4): 15.2 ml/m2 LA dimension(2D): 5.4 cm RA A4 area: 21.1 cm2 Doppler Measurements & Calculations MV E max malini: 166.5 cm/sec MV V2 max: 198.3 cm/sec MV P1/2t max malini: 198.6 cm/sec MV max P.7 mmHg MV P1/2t: 123.3 msec MV V2 mean: 85.0 cm/sec MV mean P.0 mmHg MV dec slope: 471.7 cm/sec2 MV V2 VTI: 60.6 cm MVA(P1/2t): 1.8 cm2 MVA(VTI): 1.2 cm2 Ao V2 max: 243.8 cm/sec LV V1 max: 96.5 cm/sec SV(LVOT): 71.3 ml Ao max P.9 mmHg LV V1 max P.7 mmHg Ao V2 mean: 164.7 cm/sec LV V1 mean P.9 mmHg Ao mean P.6 mmHg LV V1 mean: 63.8 cm/sec Ao V2 VTI: 54.3 cm LV V1 VTI: 23.7 cm AV (velocity ratio): 0.44 MICHAEL(I,D): 1.3 cm2 MICHAEL(V,D): 1.2 cm2 TR max malini: 315.2 cm/sec TR max P.7 mmHg ECHO/Echo Complete W/ Contrast Interpretation Summary Normal LV size. The left ventricular ejection fraction is 40 %. Pulmonary artery systolic pressure is 43 mmHg. Bioprosthetic aortic valve. Mean aortic valve gradient 13 mmHg. Mild mitral valve stenosis. Contrast injection was performed. The study was technically difficult. Ordering Physician: Dang Dyer Referring Physician: Dang Dyer Performed By: Vincent Fleming RCS
== END | disposition home or self-care (01) ==
LOC: CVS 14:57
PROVIDERS: Referring Provider Physician Assistant Medical; Visit Provider Physician Assistant Medical
DX: Z95.2 Presence of prosthetic heart valve (principal)
CPT/HCPCS: 93306; Q9957; A4216; C8929

== ENCOUNTER → 2024-10-10 | Outpatient (CLI) | payer MEDICARE, OTHER, SELFPAY ==
[2024-10-10 18:29] LABS: Vitamin D,25 Hydroxy 43.1 ng/mL
[2024-10-10 18:33] LABS: Hemoglobin A1c 5.7 % (3.8-5.6)
[2024-10-10 18:40] LABS: Valproic Acid (Depakene) Level < 3 ug/mL (50-100)
[2024-10-10 18:53] LABS: T4 Free Direct 0.61 ng/dL (0.76-1.46)
== END | disposition home or self-care (01) ==
LOC: MTLAB 14:09
DX: Z00.00 Encounter for general adult medical examination without abnormal findings (principal); N18.4 Chronic kidney disease, stage 4 (severe); F03.90 Unspecified dementia, unspecified severity, without behavioral disturbance, psychotic disturbance, mood disturbance, and anxiety; I48.0 Paroxysmal atrial fibrillation; E11.59 Type 2 diabetes mellitus with other circulatory complications; E11.22 Type 2 diabetes mellitus with diabetic chronic kidney disease; R79.89 Other specified abnormal findings of blood chemistry; E78.2 Mixed hyperlipidemia; F33.9 Major depressive disorder, recurrent, unspecified
CPT/HCPCS: 36415; 80164; 82306; 83036; 84439; 84443

== ENCOUNTER → 2024-10-22 | Outpatient (CLI) | payer MEDICARE, OTHER, SELFPAY ==
[2024-10-22 15:16] LABS: Absolute Lymphocyte Count 1.64 X10^3/uL (0.83-4.51); Absolute Neutrophil Count 4.9 X10^3/uL (2.0-7.7); Basophil# 0.04 X10^3/uL; Basophil% 0.6 % (0-1); Eosinophil# 0.21 X10^3/uL; Eosinophils% 2.9 % (0-5); Hematocrit 34.2 % (40-54); Hemoglobin 10.6 g/dL (13.0-16.5); Lymphocyte # 1.64 X10^3/ul (0.83-4.51); Lymphocyte % 22.7 % (19-41); Mean Corpuscular Hgb 30.9 pg (27.0-32.0); Mean Corpuscular Volume 99.7 fL (80-94); Mean Platelet Vol. 11.3 fl (6.2-12.0); Monocyte# 0.39 X10^3/uL; Monocyte% 5.4 % (0-10); NRBC Flagged by Analyzer 0 % (0-5); Neutrophil # 4.92 X10^3/uL (2.7-7.7); Platelet Count 117 K/mm3 (150-450); RBC Distribution Width CV 14.4 % (11.6-14.6); RBC Distribution Width SD 51.9 fl (35.1-43.9); Red Blood Count 3.43 M/mm3 (4.6-6.2); White Blood Count 7.2 K/mm3 (4.4-11.0)
[2024-10-22 15:35] LABS: Protein, Urine (Random) 45.3 mg/dL (<11.9); Protein:Creat Ratio 899 mg/g CRE (0-200)
[2024-10-22 15:38] LABS: ALB/GLOB Ratio 0.8 RATIO (0.9-2.4); AST(SGOT) 17 U/L (15-37); Alanine Aminotransfer ALT/SGPT 13 U/L (16-61); Albumin, Serum 3.3 g/dL (3.2-5.0); Alkaline Phosphatase 143 U/L (45-117); Anion Gap 6 (5-15); BUN 62 mg/dL (7-18); BUN/Creat Ratio 24.9 RATIO (10-20); Chloride 114 mmol/L (98-107); Creatinine, Serum 2.49 mg/dL (0.70-1.30); EST Glomerular Filtration Rate 26 mL/min (>60); Est Glom Filt Rate - Afr Amer 32 mL/min (>60); Ferritin 154 ng/mL (26-388); Globulin 3.9 g/dL (2.2-4.2); Glucose 148 mg/dL (74-106); Iron 87 ug/dL (65-175); Iron Binding Capacity,Total 214 ug/dL (250-450); PERCENT IRON SATURATION 40.7 % (15.0-55.0); Phosphorus 3.6 mg/dL (2.5-4.9); Potassium 4.5 mmol/L (3.5-5.1); Protein, Total 7.2 g/dL (6.4-8.2); Sodium Level 143 mmol/L (136-145); Uric Acid 5.4 mg/dL (3.5-7.2)
[2024-10-22 16:44] LABS: Hemoglobin A1c 5.4 % (3.8-5.6)
== END | disposition home or self-care (01) ==
LOC: MTLAB 11:36
PROVIDERS: Referring Provider Internal Medicine; Visit Provider Internal Medicine
DX: E11.22 Type 2 diabetes mellitus with diabetic chronic kidney disease (principal); N18.4 Chronic kidney disease, stage 4 (severe); I12.9 Hypertensive chronic kidney disease with stage 1 through stage 4 chronic kidney disease, or unspecified chronic kidney disease; D63.1 Anemia in chronic kidney disease
CPT/HCPCS: 36415; 80053; 82570; 82728; 83036; 83540; 83550; 83970; 84100; 84156; 84550; 85025

== ENCOUNTER 2024-10-31 14:51 | Outpatient (CLI) | payer MEDICARE, OTHER, SELFPAY ==
[2024-10-31 15:23] LABS: Absolute Neutrophil Count 4.2 X10^3/uL (2.0-7.7); Basophil# 0.02 X10^3/uL; Basophil% 0.3 % (0-1); Eosinophil# 0.28 X10^3/uL; Eosinophils% 4.2 % (0-5); Hematocrit 33.6 % (40-54); Hemoglobin 10.9 g/dL (13.0-16.5); Lymphocyte % 25.4 % (19-41); Mean Corp Hgb Conc 32.4 g/dL (32-36); Mean Corpuscular Hgb 32.2 pg (27.0-32.0); Mean Corpuscular Volume 99.4 fL (80-94); Mean Platelet Vol. 10.8 fl (6.2-12.0); Monocyte# 0.43 X10^3/uL; Monocyte% 6.4 % (0-10); NRBC Flagged by Analyzer 0 % (0-5); Neutrophil # 4.22 X10^3/uL (2.7-7.7); Neutrophil % 63.1 % (47-70); Platelet Count 133 K/mm3 (150-450); RBC Distribution Width CV 14.3 % (11.6-14.6); RBC Distribution Width SD 51.4 fl (35.1-43.9); Red Blood Count 3.38 M/mm3 (4.6-6.2); White Blood Count 6.7 K/mm3 (4.4-11.0)
[2024-10-31 15:40] LABS: Albumin, Serum 3.4 g/dL (3.2-5.0); BUN 70 mg/dL (7-18); BUN/Creat Ratio 27.8 RATIO (10-20); Calcium,Total 9.7 mg/dL (8.5-10.1); Chloride 113 mmol/L (98-107); Creatinine, Serum 2.52 mg/dL (0.70-1.30); EST Glomerular Filtration Rate 26 mL/min (>60); Est Glom Filt Rate - Afr Amer 32 mL/min (>60); Ferritin 176 ng/mL (26-388); Glucose 145 mg/dL (74-106); Iron 63 ug/dL (65-175); Iron Binding Capacity,Total 236 ug/dL (250-450); PERCENT IRON SATURATION 26.7 % (15.0-55.0); Phosphorus 3.5 mg/dL (2.5-4.9); Potassium 4.4 mmol/L (3.5-5.1); Sodium Level 143 mmol/L (136-145)
== END 2024-10-31 23:59 | disposition home or self-care (01) ==
LOC: MEDOUTP 14:51
PROVIDERS: Referring Provider Internal Medicine Nephrology; Visit Provider Internal Medicine Nephrology
DX: N18.5 Chronic kidney disease, stage 5 (principal); D63.1 Anemia in chronic kidney disease; N25.81 Secondary hyperparathyroidism of renal origin
CPT/HCPCS: 36415; 80069; 82728; 83540; 83550; 83970; 85025

== ENCOUNTER 2024-12-04 14:47 | Outpatient (CLI) | payer MEDICARE, OTHER, SELFPAY ==
[2024-12-04 15:08] LABS: Absolute Lymphocyte Count 1.91 X10^3/uL (0.83-4.51); Absolute Neutrophil Count 4.9 X10^3/uL (2.0-7.7); Basophil# 0.04 X10^3/uL; Basophil% 0.5 % (0-1); Eosinophil# 0.21 X10^3/uL; Eosinophils% 2.8 % (0-5); Hematocrit 36.7 % (40-54); Hemoglobin 11.6 g/dL (13.0-16.5); Lymphocyte # 1.91 X10^3/ul (0.83-4.51); Lymphocyte % 25.4 % (19-41); Mean Corp Hgb Conc 31.6 g/dL (32-36); Mean Corpuscular Hgb 32.1 pg (27.0-32.0); Mean Corpuscular Volume 101.7 fL (80-94); Mean Platelet Vol. 10.7 fl (6.2-12.0); Monocyte# 0.48 X10^3/uL; Monocyte% 6.4 % (0-10); NRBC Flagged by Analyzer 0 % (0-5); Neutrophil # 4.85 X10^3/uL (2.7-7.7); Neutrophil % 64.5 % (47-70); Platelet Count 117 K/mm3 (150-450); RBC Distribution Width CV 14.7 % (11.6-14.6); RBC Distribution Width SD 54.9 fl (35.1-43.9); Red Blood Count 3.61 M/mm3 (4.6-6.2); White Blood Count 7.5 K/mm3 (4.4-11.0)
[2024-12-04 15:26] LABS: Albumin, Serum 3.5 g/dL (3.2-5.0); BUN 48 mg/dL (7-18); BUN/Creat Ratio 18.9 RATIO (10-20); Calcium,Total 9.6 mg/dL (8.5-10.1); Chloride 116 mmol/L (98-107); Creatinine, Serum 2.54 mg/dL (0.70-1.30); EST Glomerular Filtration Rate 26 mL/min (>60); Est Glom Filt Rate - Afr Amer 31 mL/min (>60); Ferritin 140 ng/mL (26-388); Glucose 128 mg/dL (74-106); Iron 77 ug/dL (65-175); Iron Binding Capacity,Total 241 ug/dL (250-450); Phosphorus 3.2 mg/dL (2.5-4.9); Sodium Level 143 mmol/L (136-145)
== END 2024-12-04 23:59 | disposition home or self-care (01) ==
LOC: MEDOUTP 14:47
PROVIDERS: Referring Provider Internal Medicine Nephrology; Visit Provider Internal Medicine Nephrology
DX: N18.5 Chronic kidney disease, stage 5 (principal); D63.1 Anemia in chronic kidney disease
CPT/HCPCS: 36415; 80069; 82728; 83540; 83550; 85025

== ENCOUNTER 2025-01-01 14:45 | Outpatient (CLI) | payer MEDICARE, OTHER, SELFPAY ==
[2025-01-01 15:08] LABS: Basophil# 0.04 X10^3/uL; Basophil% 0.5 % (0-1); Eosinophil# 0.18 X10^3/uL; Eosinophils% 2.3 % (0-5); Hematocrit 35.8 % (40-54); Hemoglobin 11.5 g/dL (13.0-16.5); Lymphocyte % 24.6 % (19-41); Mean Corp Hgb Conc 32.1 g/dL (32-36); Mean Corpuscular Hgb 32.2 pg (27.0-32.0); Mean Corpuscular Volume 100.3 fL (80-94); Mean Platelet Vol. 10.5 fl (6.2-12.0); Monocyte# 0.54 X10^3/uL; NRBC Flagged by Analyzer 0 % (0-5); Neutrophil # 5.02 X10^3/uL (2.7-7.7); Neutrophil % 65.2 % (47-70); Platelet Count 105 K/mm3 (150-450); RBC Distribution Width CV 13.2 % (11.6-14.6); Red Blood Count 3.57 M/mm3 (4.6-6.2); White Blood Count 7.7 K/mm3 (4.4-11.0)
[2025-01-01 15:24] LABS: Albumin, Serum 3.4 g/dL (3.2-5.0); BUN 49 mg/dL (7-18); Calcium,Total 10.2 mg/dL (8.5-10.1); Chloride 110 mmol/L (98-107); Creatinine, Serum 2.58 mg/dL (0.70-1.30); EST Glomerular Filtration Rate 25 mL/min (>60); Est Glom Filt Rate - Afr Amer 31 mL/min (>60); Ferritin 152 ng/mL (26-388); Glucose 124 mg/dL (74-106); Iron 53 ug/dL (65-175); Iron Binding Capacity,Total 211 ug/dL (250-450); PERCENT IRON SATURATION 25.1 % (15.0-55.0); Phosphorus 3.4 mg/dL (2.5-4.9); Potassium 4.8 mmol/L (3.5-5.1); Sodium Level 142 mmol/L (136-145)
== END 2025-01-01 23:59 | disposition home or self-care (01) ==
LOC: MEDOUTP 14:45
PROVIDERS: Referring Provider Internal Medicine Nephrology; Visit Provider Internal Medicine Nephrology
DX: N18.5 Chronic kidney disease, stage 5 (principal); D63.1 Anemia in chronic kidney disease
CPT/HCPCS: 36415; 80069; 82728; 83540; 83550; 85025

== ENCOUNTER 2025-01-29 14:44 | Outpatient (CLI) | payer MEDICARE, OTHER, SELFPAY ==
[2025-01-29 15:08] LABS: Absolute Neutrophil Count 8.4 X10^3/uL (2.0-7.7); Basophil# 0.03 X10^3/uL; Basophil% 0.3 % (0-1); Eosinophil# 0.11 X10^3/uL; Hematocrit 37.9 % (40-54); Hemoglobin 12.3 g/dL (13.0-16.5); Lymphocyte % 15.5 % (19-41); Mean Corp Hgb Conc 32.5 g/dL (32-36); Mean Corpuscular Hgb 31.9 pg (27.0-32.0); Mean Corpuscular Volume 98.2 fL (80-94); Mean Platelet Vol. 11.5 fl (6.2-12.0); Monocyte# 0.71 X10^3/uL; Monocyte% 6.5 % (0-10); NRBC Flagged by Analyzer 0 % (0-5); Neutrophil % 76.3 % (47-70); Platelet Count 115 K/mm3 (150-450); RBC Distribution Width CV 12.9 % (11.6-14.6); RBC Distribution Width SD 45.9 fl (35.1-43.9); Red Blood Count 3.86 M/mm3 (4.6-6.2)
[2025-01-29 15:42] LABS: PTHIN 30 pg/mL (11-61)
[2025-01-29 15:50] LABS: Anion Gap 14 (5-15); BUN 54 mg/dL (4-19); BUN/Creat Ratio 20.8 RATIO (10-20); Calcium,Total 9.8 mg/dL (7.6-11.0); Carbon Dioxide 21.4 mmol/L (21.0-32.0); Chloride 106 mmol/L (98-108); Creatinine, Serum 2.59 mg/dL (0.70-1.20); EST Glomerular Filtration Rate 24 (>60); Ferritin 252 ng/mL (37-417); Glucose 110 mg/dL (70-99); Iron 84 ug/dL (65-175); Iron Binding Capacity,Total 242 ug/dL (250-450); Iron Binding Capacity,Unsat 158 ug/dL (228-428); Phosphorus 3.1 mg/dL (2.7-4.5); Potassium 4.4 mmol/L (3.3-5.1); Sodium Level 141 mmol/L (133-145)
== END 2025-01-29 23:59 | disposition home or self-care (01) ==
LOC: MEDOUTP 14:44
PROVIDERS: Referring Provider Internal Medicine Nephrology; Visit Provider Internal Medicine Nephrology
DX: N18.5 Chronic kidney disease, stage 5 (principal); D63.1 Anemia in chronic kidney disease
CPT/HCPCS: 36415; 80069; 82728; 83540; 83550; 83970; 85025

== ENCOUNTER 2025-02-26 14:39 | Outpatient (CLI) | payer MEDICARE, OTHER, SELFPAY ==
[2025-02-26 15:07] LABS: Absolute Lymphocyte Count 1.72 X10^3/uL (0.83-4.51); Absolute Neutrophil Count 5.7 X10^3/uL (2.0-7.7); Basophil# 0.03 X10^3/uL; Basophil% 0.4 % (0-1); Eosinophil# 0.19 X10^3/uL; Eosinophils% 2.3 % (0-5); Hematocrit 35.4 % (40-54); Hemoglobin 11.3 g/dL (13.0-16.5); Lymphocyte # 1.72 X10^3/ul (0.83-4.51); Mean Corp Hgb Conc 31.9 g/dL (32-36); Mean Corpuscular Hgb 31.6 pg (27.0-32.0); Mean Corpuscular Volume 98.9 fL (80-94); Mean Platelet Vol. 10.8 fl (6.2-12.0); Monocyte# 0.57 X10^3/uL; NRBC Flagged by Analyzer 0 % (0-5); Neutrophil # 5.65 X10^3/uL (2.7-7.7); Neutrophil % 69.1 % (47-70); Platelet Count 114 K/mm3 (150-450); RBC Distribution Width CV 13.6 % (11.6-14.6); RBC Distribution Width SD 49.2 fl (35.1-43.9); Red Blood Count 3.58 M/mm3 (4.6-6.2); White Blood Count 8.2 K/mm3 (4.4-11.0)
[2025-02-26 15:39] LABS: PTHIN 49 pg/mL (11-61)
[2025-02-26 15:47] LABS: Albumin, Serum 3.7 g/dL (3.4-4.8); Anion Gap 16 (5-15); BUN 45 mg/dL (4-19); BUN/Creat Ratio 18.1 RATIO (10-20); Carbon Dioxide 19.8 mmol/L (21.0-32.0); Chloride 107 mmol/L (98-108); Creatinine, Serum 2.48 mg/dL (0.70-1.20); EST Glomerular Filtration Rate 25 (>60); Ferritin 223 ng/mL (37-417); Glucose 136 mg/dL (70-99); Iron 75 ug/dL (65-175); Iron Binding Capacity,Unsat 143 ug/dL (228-428); Phosphorus 3.2 mg/dL (2.7-4.5); Potassium 4.8 mmol/L (3.3-5.1); Sodium Level 143 mmol/L (133-145)
[2025-02-26 16:11] LABS: Iron Binding Capacity,Total 218 ug/dL (250-450); PERCENT IRON SATURATION 34.4 % (9-55)
== END 2025-02-26 23:59 | disposition home or self-care (01) ==
LOC: MEDOUTP 14:39
PROVIDERS: Referring Provider Internal Medicine Nephrology; Visit Provider Internal Medicine Nephrology
DX: N18.5 Chronic kidney disease, stage 5 (principal); D63.1 Anemia in chronic kidney disease
CPT/HCPCS: 36415; 80069; 82728; 83540; 83550; 83970; 85025

== ENCOUNTER 2025-03-28 14:42 | Outpatient (CLI) | payer MEDICARE, OTHER, SELFPAY ==
[2025-03-28 15:02] LABS: Absolute Lymphocyte Count 1.95 X10^3/uL (0.83-4.51); Absolute Neutrophil Count 5.5 X10^3/uL (2.0-7.7); Basophil# 0.04 X10^3/uL; Basophil% 0.5 % (0-1); Eosinophil# 0.16 X10^3/uL; Eosinophils% 1.9 % (0-5); Hematocrit 35.2 % (40-54); Hemoglobin 11.2 g/dL (13.0-16.5); Lymphocyte # 1.95 X10^3/ul (0.83-4.51); Lymphocyte % 23.7 % (19-41); Mean Corp Hgb Conc 31.8 g/dL (32-36); Mean Corpuscular Hgb 31.8 pg (27.0-32.0); Mean Platelet Vol. 11.5 fl (6.2-12.0); Monocyte# 0.54 X10^3/uL; Monocyte% 6.6 % (0-10); NRBC Flagged by Analyzer 0 % (0-5); Neutrophil # 5.49 X10^3/uL (2.7-7.7); Neutrophil % 66.8 % (47-70); Platelet Count 107 K/mm3 (150-450); RBC Distribution Width CV 14.6 % (11.6-14.6); Red Blood Count 3.52 M/mm3 (4.6-6.2); White Blood Count 8.2 K/mm3 (4.4-11.0)
[2025-03-28 15:38] LABS: Anion Gap 13 (5-15); BUN 53 mg/dL (4-19); BUN/Creat Ratio 20.7 RATIO (10-20); Calcium,Total 10.6 mg/dL (7.6-11.0); Carbon Dioxide 21.1 mmol/L (21.0-32.0); Chloride 108 mmol/L (98-108); Creatinine, Serum 2.56 mg/dL (0.70-1.20); EST Glomerular Filtration Rate 24 (>60); Ferritin 191 ng/mL (37-417); Glucose 130 mg/dL (70-99); Iron 93 ug/dL (65-175); Iron Binding Capacity,Unsat 143 ug/dL (228-428); Phosphorus 3.9 mg/dL (2.7-4.5); Potassium 5.3 mmol/L (3.3-5.1); Sodium Level 142 mmol/L (133-145)
[2025-03-28 15:46] LABS: Iron Binding Capacity,Total 236 ug/dL (250-450)
[2025-03-28 22:55] LABS: Xtra Tube EP Lab EXTRA TUBE
== END 2025-03-28 23:59 | disposition home or self-care (01) ==
LOC: MEDOUTP 14:42
PROVIDERS: Referring Provider Internal Medicine Nephrology; Visit Provider Internal Medicine Nephrology
DX: N18.5 Chronic kidney disease, stage 5 (principal); D63.1 Anemia in chronic kidney disease
CPT/HCPCS: 36415; 80069; 82728; 83540; 83550; 85025

== ENCOUNTER → 2025-04-15 | Outpatient (CLI) | payer MEDICARE, OTHER, SELFPAY ==
[2025-04-15 15:21] LABS: Absolute Lymphocyte Count 1.38 X10^3/uL (0.83-4.51); Basophil# 0.04 X10^3/uL; Basophil% 0.6 % (0-1); Eosinophil# 0.19 X10^3/uL; Eosinophils% 2.7 % (0-5); Hematocrit 34.5 % (40-54); Hemoglobin 10.9 g/dL (13.0-16.5); Lymphocyte # 1.38 X10^3/ul (0.83-4.51); Lymphocyte % 19.4 % (19-41); Mean Corp Hgb Conc 31.6 g/dL (32-36); Mean Corpuscular Volume 101.2 fL (80-94); Mean Platelet Vol. 11.7 fl (6.2-12.0); Monocyte# 0.47 X10^3/uL; Monocyte% 6.6 % (0-10); NRBC Flagged by Analyzer 0 % (0-5); Neutrophil # 4.99 X10^3/uL (2.7-7.7); Neutrophil % 70.3 % (47-70); Platelet Count 112 K/mm3 (150-450); RBC Distribution Width CV 15.1 % (11.6-14.6); RBC Distribution Width SD 56.5 fl (35.1-43.9); Red Blood Count 3.41 M/mm3 (4.6-6.2); White Blood Count 7.1 K/mm3 (4.4-11.0)
[2025-04-15 16:15] LABS: Albumin, Serum 3.9 g/dL (3.4-4.8); Anion Gap 12 (5-15); BUN 54 mg/dL (4-19); BUN/Creat Ratio 20.4 RATIO (10-20); Calcium,Total 9.3 mg/dL (7.6-11.0); Carbon Dioxide 21.4 mmol/L (21.0-32.0); Chloride 108 mmol/L (98-108); Creatinine, Serum 2.63 mg/dL (0.70-1.20); EST Glomerular Filtration Rate 23 (>60); Ferritin 186 ng/mL (37-417); Glucose 139 mg/dL (70-99); Potassium 4.8 mmol/L (3.3-5.1); Sodium Level 141 mmol/L (133-145)
[2025-04-15 16:22] LABS: Protein:Creat Ratio 702 mg/g CRE (0-200)
[2025-04-15 16:27] LABS: PTHIN 59 pg/mL (11-61)
[2025-04-15 16:31] LABS: Iron 70 ug/dL (65-175); Iron Binding Capacity,Unsat 163 ug/dL (228-428); Phosphorus 3.6 mg/dL (2.7-4.5); Uric Acid 5.6 mg/dL (3.5-7.2)
[2025-04-15 16:42] LABS: Iron Binding Capacity,Total 233 ug/dL (250-450)
== END | disposition home or self-care (01) ==
LOC: MTLAB 11:22
PROVIDERS: Referring Provider Internal Medicine Nephrology; Visit Provider Internal Medicine Nephrology
DX: I12.9 Hypertensive chronic kidney disease with stage 1 through stage 4 chronic kidney disease, or unspecified chronic kidney disease (principal); N18.4 Chronic kidney disease, stage 4 (severe); D63.1 Anemia in chronic kidney disease
CPT/HCPCS: 36415; 80069; 82570; 82728; 83540; 83550; 83970; 84156; 84550; 85025

== ENCOUNTER 2025-04-25 14:54 | Outpatient (CLI) | payer MEDICARE, OTHER, SELFPAY ==
[2025-04-25 15:16] LABS: Absolute Lymphocyte Count 1.73 X10^3/uL (0.83-4.51); Absolute Neutrophil Count 5.4 X10^3/uL (2.0-7.7); Basophil# 0.04 X10^3/uL; Basophil% 0.5 % (0-1); Eosinophils% 1.3 % (0-5); Hematocrit 34.1 % (40-54); Hemoglobin 10.9 g/dL (13.0-16.5); Lymphocyte # 1.73 X10^3/ul (0.83-4.51); Lymphocyte % 22.3 % (19-41); Mean Corpuscular Hgb 32.3 pg (27.0-32.0); Mean Corpuscular Volume 101.2 fL (80-94); Mean Platelet Vol. 10.6 fl (6.2-12.0); Monocyte# 0.48 X10^3/uL; Monocyte% 6.2 % (0-10); NRBC Flagged by Analyzer 0 % (0-5); Neutrophil % 69.4 % (47-70); Platelet Count 105 K/mm3 (150-450); RBC Distribution Width CV 15.1 % (11.6-14.6); RBC Distribution Width SD 56.2 fl (35.1-43.9); Red Blood Count 3.37 M/mm3 (4.6-6.2); White Blood Count 7.8 K/mm3 (4.4-11.0)
[2025-04-25 15:42] LABS: Albumin, Serum 3.8 g/dL (3.4-4.8); Anion Gap 13 (5-15); BUN 53 mg/dL (4-19); BUN/Creat Ratio 21.2 RATIO (10-20); Calcium,Total 9.9 mg/dL (7.6-11.0); Carbon Dioxide 21.1 mmol/L (21.0-32.0); Chloride 109 mmol/L (98-108); EST Glomerular Filtration Rate 25 (>60); Ferritin 216 ng/mL (37-417); Glucose 131 mg/dL (70-99); Iron 68 ug/dL (65-175); Iron Binding Capacity,Unsat 155 ug/dL (228-428); Phosphorus 4.3 mg/dL (2.7-4.5); Potassium 5.2 mmol/L (3.3-5.1); Sodium Level 143 mmol/L (133-145)
[2025-04-25 15:54] LABS: Iron Binding Capacity,Total 223 ug/dL (250-450)
[2025-04-25 23:10] LABS: Xtra Tube EP Lab EXTRA TUBE
== END 2025-04-25 23:59 | disposition home or self-care (01) ==
LOC: MEDOUTP 14:54
PROVIDERS: Referring Provider Internal Medicine Nephrology; Visit Provider Internal Medicine Nephrology
DX: N18.5 Chronic kidney disease, stage 5 (principal); D63.1 Anemia in chronic kidney disease
CPT/HCPCS: 36415; 80069; 82728; 83540; 83550; 85025

== ENCOUNTER 2025-05-22 14:56 | Outpatient (CLI) | payer MEDICARE, OTHER, SELFPAY ==
[2025-05-22 15:15] LABS: Absolute Lymphocyte Count 1.86 X10^3/uL (0.83-4.51); Absolute Neutrophil Count 4.3 X10^3/uL (2.0-7.7); Basophil# 0.03 X10^3/uL; Basophil% 0.4 % (0-1); Eosinophils% 1.5 % (0-5); Hemoglobin 12.2 g/dL (13.0-16.5); Lymphocyte # 1.86 X10^3/ul (0.83-4.51); Mean Corp Hgb Conc 32.1 g/dL (32-36); Mean Corpuscular Hgb 32.5 pg (27.0-32.0); Mean Corpuscular Volume 101.3 fL (80-94); Monocyte# 0.55 X10^3/uL; NRBC Flagged by Analyzer 0 % (0-5); Neutrophil # 4.32 X10^3/uL (2.7-7.7); Neutrophil % 62.7 % (47-70); Platelet Count 101 K/mm3 (150-450); RBC Distribution Width CV 15.2 % (11.6-14.6); RBC Distribution Width SD 56.1 fl (35.1-43.9); Red Blood Count 3.75 M/mm3 (4.6-6.2); White Blood Count 6.9 K/mm3 (4.4-11.0)
[2025-05-22 15:51] LABS: Hemoglobin A1c 5.7 % (<=5.6)
[2025-05-22 16:09] LABS: Albumin, Serum 4.1 g/dL (3.4-4.8); Anion Gap 15 (5-15); BUN 44 mg/dL (4-19); BUN/Creat Ratio 18.6 RATIO (10-20); Calcium,Total 10.2 mg/dL (7.6-11.0); Carbon Dioxide 19.4 mmol/L (21.0-32.0); Chloride 108 mmol/L (98-108); Creatinine, Serum 2.36 mg/dL (0.70-1.20); EST Glomerular Filtration Rate 26 (>60); Ferritin 184 ng/mL (37-417); Glucose 106 mg/dL (70-99); Iron 72 ug/dL (65-175); Iron Binding Capacity,Total 258 ug/dL (250-450); Iron Binding Capacity,Unsat 186 ug/dL (228-428); Phosphorus 3.6 mg/dL (2.7-4.5); Potassium 5.1 mmol/L (3.3-5.1); Sodium Level 142 mmol/L (133-145)
[2025-05-22 16:22] LABS: ALB/GLOB Ratio 1.2 RATIO (0.9-2.4); AST(SGOT) 26 U/L (<=37); Alanine Aminotransfer ALT/SGPT 12 U/L (<=46); Albumin, Serum 4.1 g/dL (3.4-4.8); Alkaline Phosphatase 192 U/L (40-129); Anion Gap 15 (5-15); BUN 45 mg/dL (4-19); BUN/Creat Ratio 18.4 RATIO (10-20); Calcium,Total 10.1 mg/dL (7.6-11.0); Carbon Dioxide 19.3 mmol/L (21.0-32.0); Chloride 108 mmol/L (98-108); Cholesterol 142 mg/dL (<=200); Creatinine, Serum 2.44 mg/dL (0.70-1.20); EST Glomerular Filtration Rate 25 (>60); Globulin 3.6 g/dL (2.2-4.2); Glucose 104 mg/dL (70-99); High Density Lipoprotein 39 mg/dL; Low Density Lipoprotein Calc. 80 mg/dL; Potassium 5.1 mmol/L (3.3-5.1); Protein, Total 7.7 g/dL (5.9-8.4); Sodium Level 142 mmol/L (133-145); Total Bilirubin 0.77 mg/dL (0.00-1.30); Triglycerides 115 mg/dL; Very Low Density Lipoprotein 23 mg/dL (5-40); cholesterol:hdl ratio screen 3.65
--- OUTSIDE RECORDS SUMMARY | 2025-05-22 22:48 | XMS RPT_ITS | CCD ---
Author Organization [facility] Care Team Providers Care Therapeutic Specialist Name Role Phone Dr. Jennifer Lu Primary Care Provider Dr. Jennifer Lu Referring Provider [phone] Monalisa IP/MOSAIC TECHNICIAN, IP/MOSAIC TECHNICIAN-C Hector Nogueira Attending Provider [phone] Dr. Jennifer Lu Primary Care Provider Aly, Dr. Gavin Referring Provider [phone] Dany IP/MOSAIC TECHNICIAN, IP/MOSAIC TECHNICIAN-C Gosia Attending Provider Monalisa IP/MOSAIC TECHNICIAN, IP/MOSAIC TECHNICIAN-C Hector Nogueira Attending Provider Dr. Jennifer Lu Primary Care Provider Dr. Jennifer Lu Referring Provider [phone] Dr. Jennifer Lu Primary Care Provider Aly, Dr. Gavin Referring Provider [phone] Monalisa IP/MOSAIC TECHNICIAN, ZOYA-C Hector Nogueira Attending Provider Dr. Jennifer Lu Referring Provider [phone] Dr. Josh Cline Attending Provider Dr. Rios Downey Primary Care Provider [phone] Dr. Rios Downey Referring Provider [phone] Monalisa IP/MOSAIC TECHNICIAN, IP/MOSAIC TECHNICIAN-C Hector Nogueira Attending Provider [phone] Rios Downey Primary Care Provider [phone] Dr. Rios Downey Referring Provider [phone] Monalisa IP/MOSAIC TECHNICIAN, IP/MOSAIC TECHNICIAN-C Hector Nogueira Attending Provider [phone] RIOS DOWNEY DO Primary Care Physician RIOS DOWNEY DO Primary Care Unavailable ALY BAIG, JENNIFER Tobias Attending Unavailable Dr. Rios Downey Primary Care Provider [phone] Dr. Angélica Palomo Emergency Provider Dion, Dr. Franklin Admit Provider Dion, Dr. Franklin Attending Provider Dion, Dr. Franklin Other Provider Dr. Christian Shook Attending Provider [phone] Mikey Ruelas Attending Provider Dr. Woody Brunson Attending Provider Dr. Woody Brunson Other Provider Dr. Rios Downey Primary Care Provider [phone] Dr. Angélica Palomo Emergency Provider Dion, Dr. Franklin Admit Provider Dr. Rigoberto Ashley Attending Provider Dion, Dr. Franklin Other Provider Dr. Christian Shook Attending Provider [phone] Mikey Ruelas Attending Provider [phone] Woody Brunson Attending Provider Dr. Woody Brunson Other Provider Dr. Rigoberto Ashley Referring Provider Dr. Rigoberto Ashley Referring Provider Dr. Farhan Bonds Emergency Provider Dr. Patricia Alcantara Admit Provider Dr. Patricia Alcantara Other Provider Dr. James Camarillo Attending Provider Unavailable Dr. James Camarillo Other Provider Unavailable Dr. Mikey Macias Attending Provider Dr. Mikey Macias Other Provider Dr. Cesar Medina Emergency Provider Dr. Patricia Alcantara Attending Provider Dr. Aleksander Hilliard Attending Provider Dr. Aleksander Hilliard Other Provider Dr. Eladio Lucas Attending Provider Dr. Eladio Lucas Other Provider Dr. Yaakov Love Other Provider Dr. Josh Cline Other Provider Dr. Michelle Peters Other Provider Unavailable Dr. Otto Jerry Other Provider Dr. Tal Ashraf Other Provider Unavailab Mir IP/MOSAIC TECHNICIAN, IP/MOSAIC TECHNICIAN-C Gosia Other Provider Dr. Yaakov Love Attending Provider Dr. Rios Downey Primary Care Provider Dr. Angélica Palomo Emergency Provider Dr. Rigoberto Ashley Admit Provider Dr. Rigoberto Ashley Attending Provider Dr. Rigoberto Ashley Other Provider Dr. Christian Shook Attending Provider Dr. Rigoberto Ashley Referring Provider Dr. Mikey Ruelas Attending Provider Dr. Woody Brunson Attending Provider Dr. Woody Brunson Other Provider Dr. Farhan Bonds Emergency Provider Dr. Ptaricia Alcantara Admit Provider Dr. Patricia Alcantara Other Provider Dr. James Camarillo Attending Provider Unavailable Dr. James Camarillo Other Provider Unavailable Dr. Mikey Macias Attending Provider Dr. Mikey Macias Other Provider Dr. Cesar Medina Emergency Provider [phone] Dr. Patricia Alcantara Attending Provider Dr. Aleksander Hilliard Attending Provider Dr. Aleksander Hilliard Other Provider Dr. Eladio Lucas Attending Provider Dr. Eladio Lucas Other Provider Dr. Yaakov Love Other Provider Dr. Josh Cline Other Provider Dr. Michelle Peters Other Provider Unavailable Dr. Otto Jerry Other Provider Dr. Tal Ashraf Other Provider Unavailab le Dany IP/MOSAIC TECHNICIAN, IP/MOSAIC TECHNICIAN-C Gosia Other Provider Dr. Eladio Lucas Referring Provider Dr. Yaakov Love Attending Provider Dr. Rios Downey Referring Provider [phone] Dany IP/MOSAIC TECHNICIAN, IP/MOSAIC TECHNICIAN-C Gosia Attending Provider Dr. Rios Downey Primary Care Provider Dr. Woody Brunson Other Provider Dr. Rios Downey Primary Care Provider Dr. Cesar Medina Emergency Provider Dr. Patricia Alcantara Admit Provider Dr. Patricia Alcantara Other Provider Dr. Woody Brunson Other Provider Dr. Eladio Lucas Referring Provider Dr. Eladio Lucas Other Provider Dr. Aleksander Hilliard Other Provider Dr. Yaakov Love Attending Provider Dr. Yaakov Love Other Provider Dr. Josh Cline Other Provider Dr. Michelle Peters Other Provider Unavailable Dr. Otto Jerry Other Provider Dr. Tal Ashraf Other Provider Unavailab le Dany IP/MOSAIC TECHNICIAN, IP/MOSAIC TECHNICIAN-C Gosia Other Provider Dr. Eladio Lucas Attending Provider [phone] Dr. Rios Downey Referring Provider [phone] Dany IP/MOSAIC TECHNICIAN, IP/MOSAIC TECHNICIAN-C Gosia Attending Provider [phone] Dr. Rios Downey Primary Care Provider [phone] Dr. Rios Downey Referring Provider [phone] ANIYA Holloway Attending Provider Dr. Rios Downey DO Primary Care Provider [phone] Dr. Pepe Au MD Attending Provider Dr. Pepe Au MD Referring Provider Dr. Rios Downey DO Primary Care Provider [phone] Dr. Pepe Au MD Attending Provider Dr. Pepe Au MD Referring Provider Dr. Rios Downey DO Referring Provider [phone] IP/MOSAIC TECHNICIAN-C, Gosia Attending Provider Rios Downey Primary Care Unavailable Makey, Dayanand Referring Unavailable Makeronaldo, Dayanand Attending Unavailable Rios Downey Primary Care Unavailable Makey, Dayanand Attending Unavailable Makey, Dayanand Referring Unavailable Rios Downey Primary Care Unavailable Dang Holloway Referring Unavail able Dang Holloway Attending Unavail able Rios Downey Primary Care Unavailable Makey, Dayanand Attending Unavailable Makey, Dayanand Referring Unavailable Makey, Dayanand Attending Unavailable Makeronaldo, Dayanand Referring Unavailable Rios Downey Primary Care Unavailable Makey, Dayanand Attending Unavailable Makey, Dayanand Referring Unavailable Rios Downey Primary Care Unavailable Makey, Dayanand Attending Unavailable Makeronaldo, Dayanand Referring Unavailable Rios Downey Primary Care Unavailable Rios Downey Primary Care Unavailable Makey, Dayanand Attending Unavailable Makey, Dayanand Referring Unavailable Downey, Rios Primary Care Unavailable Downey, Rios Referring Unavailable Manisha KWAN, Dang Isbell Attending Unavail able Makey, Dayanand Attending Unavailable Makey, Dayanand Referring Unavailable Downey, Rios Primary Care Unavailable Downey, Rios Primary Care Unavailable Makey, Dayanand Attending Unavailable Makey, Dayanand Referring Unavailable Downey, Rios Primary Care Unavailable Makey, Dayanand Referring Unavailable Makey, Dayanand Attending Unavailable Makey, Dayanand Attending Unavailable Makey, Dayanand Referring Unavailable Downey, Rios Primary Care Unavailable Makey, Dayanand Attending Unavailable Makey, Dayanand Referring Unavailable Downey, Rios Primary Care Unavailable Downey, Rios Primary Care Unavailable Christian Shook Attending Unavailable Downey, Rios Referring Unavailable Downey, Rios Primary Care Unavailable Saenz IP/MOSAIC TECHNICIAN, Gosia Attending Unavailable Downey, Rios Primary Care Unavailable Downey, Rios Referring Unavailable Saenz IP/MOSAIC TECHNICIAN, Gosia Attending Unavailable Makey, Dayanand Attending Unavailable Makey, Dayanand Referring Unavailable Downey, Rios Primary Care Unavailable Downey, Rios Primary Care Unavailable Makey, Dayanand Attending Unavailable Makey, Dayanand Referring Unavailable Downey, Rios Primary Care Unavailable Downey, Rios Referring Unavailable Downey, Rios Attending Unavailable Downey, Rios Primary Care Unavailable Toñito Espino Referring Unavailable Toñito Espino Attending Unavailable Makey, Dayanand Consulting Unavailable Downey, Rios Primary Care Unavailable Makey, Dayanand Attending Unavailable Makey, Dayanand Referring Unavailable Allergies Allergy Classification Reported Allergen(s) Allergy Type Date of Onset Reaction(s) Facility (20 sources) Penicillins; Translations: [Penicillin -class of antibiotic- (substance)] Allergy to substance 1 Swelling, [facility] (1 source) Pravastatin; Translations: [pravastatin] Drug Allergy Cramp (finding) [facility] [place] Medications Current Medications Medication Drug Class(es) Dates Sig (Normalized) Sig (Original) allopurinol 300 mg oral tablet (20 sources) Xanthine Oxidase Inhibitor Start: 02-19-2020 End: 12-07-2021 take 1 tablet by mouth once daily Allopurinol 300 mg tablet Active 300 mg PO DAILY December 07, 2021 4:41pm Start: 02-19-2020 End: 12-07-2021 Allopurinol 300 MG tablet Discontinued 150 mg PO DAILY February 19, 2020 12:00am December 07, 2021 4:43pm Start: 02-19-2020 End: 12-07-2021 take 150 mg by mouth once daily Allopurinol Discontinu ed 150 MG PO DAILY February 19, 2020 12:00am December 07, 2021 4:43pm Start: 08-27-2016 End: 02-05-2020 Allopurinol 300 MG tablet Discontinued 150 mg PO DAILY WITH MEALS September 27, 2019 10:17pm February 05, 2020 9:27am Start: 07-11-2016 End: 02-05-2020 take 1 tablet by mouth once daily Allopurinol 300 MG tablet Discontinued 300 mg PO DAILY July 11, 2016 12:00am August 27, 2016 4:51pm Start: 07-11-2016 End: 02-05-2020 take 150 mg by mouth once daily at mealtime Allopurinol Discontinued 150 MG PO DAILY WITH MEALS September 27, 2019 10:17pm February 05, 2020 9:27am amLODIPine 2.5 mg oral tablet (15 sources) Dihydropyridine Calcium Channel Josey Start: 09-16-2023 End: 01-25-2025 take 1 tablet by mouth once daily Amlodipine 2.5 mg tablet Active 2.5 mg PO DAILY January 25, 2025 11:59am apixaban 2.5 mg oral tablet (20 sources) Factor Xa Inhibitor Start: 08-17-2022 take 1 tablet by mouth twice daily Apixaban (Eliquis) 2.5 mg tablet Active 2.5 mg PO TWICE A DAY October 07, 2022 1:00am aspirin 81 mg delayed release oral tablet (20 sources) Platelet Aggregation Inhibitor, Nonsteroidal Anti-inflammatory Drug Start: 07-11-2016 take 1 tablet by mouth once daily Aspirin 81 MG tablet,delayed release (DR/EC) Active 81 mg PO DAILY July 11, 2016 12:00am calcitriol 0.56140 mg oral capsule (20 sources) Vitamin D3 Analog Start: 04-16-2022 End: 10-07-2022 Calcitriol 0.25 mcg capsule Active 0.5 ug PO MOWEFR October 07, 2022 2:50pm Start: 01-30-2020 End: 04-16-2022 take 1 capsule by mouth once daily Calcitriol 0.25 MCG capsule Discontinued 0.25 ug PO DAILY January 30, 2020 1:00am April 16, 2022 12:53pm Start: 01-30-2020 End: 10-07-2022 take 0.5 ug by mouth once daily Calcitriol Discontinue d 0.5 MCG PO DAILY April 16, 2022 12:52pm October 07, 2022 2:51pm Start: 01-21-2020 calcitriol 0.2 5 mcg oral capsule Dose : 0.25 mcg = 1 cap(s), Oral, Daily, # 30 cap(s), 0 Refill(s) Start Date: 01/21/20 Status: Ordered cholecalciferol 0.025 mg oral tablet (20 sources) Vitamin D Start: 10-26-2016 Cholecalcifero l (Vitamin D3) 1,000 UNIT tablet Active 25 ug PO DAILY October 26, 2016 1:00am Start: 10-26-2016 take 25 ug by mouth once daily Cholecalciferol (Vitamin D3) Active 25 MCG PO DAILY October 26, 2016 1:00am famotidine 20 mg oral tablet (20 sources) Histamine-2 Receptor Antagonist Start: 06-15-2019 take 1 tablet by mouth once daily Famotidine 20 mg tablet Active 20 mg PO DAILY November 13, 2019 1:00am furosemide 40 mg oral tablet (20 sources) Loop Diuretic Start: 03-23-2024 End: 01-25-2025 take 1 tablet by mouth once daily Furosemide 40 mg tablet Active 40 mg PO daily January 25, 2025 11:59am Start: 09-22-2023 End: 03-23-2024 take 1 tablet by mouth once daily Furosemide 20 mg Tablet Discontinued 20 mg PO DAILY September 22, 2023 12:00am March 23, 2024 3:26pm Start: 09-27-2019 End: 09-16-2023 take 1 tablet by mouth twice daily Furosemide 40 MG tablet Discontinued 40 mg PO TWICE A DAY September 29, 2019 11:41am February 05, 2020 9:29am Start: 09-27-2019 End: 08-18-2023 take 1 tablet by mouth every other day Furosemide (Lasix) 40 mg tablet Discontinued 40 mg PO EVERY OTHER DAY July 03, 2023 12:00am August 18, 2023 2:11pm Start: 07-11-2016 End: 09-16-2023 take 1 tablet by mouth once daily Furosemide 40 mg tablet Discontinued 40 - 80 mg PO DAILY 180 September 17, 2022 4:43pm July 03, 2023 10:51am TAKES ONE OR TWO DAILY, BASED ON WEIGHT Start: 07-11-2016 End: 02-08-2018 take 2 tablets by mouth once daily Furosemide 40 MG tablet Discontinued 80 mg PO DAILY July 11, 2016 12:00am February 08, 2018 11:33am Start: 07-11-2016 End: 02-08-2018 take 80 mg by mouth once daily Furosemide Discontinued 80 MG PO DAILY July 11, 2016 12:00am February 08, 2018 11:33am insulin isophane, human 100 unt/ml injectable suspension (20 sources) Start: 09-22-2023 Insulin Nph Is oph U-100 Human 100 unit/mL suspension Active 20 U SC TWICE A DAY September 22, 2023 1:14pm 5 UNITS IN THE MORNING 5 UNITS AT BEDTIME Start: 06-15-2019 inject 1 dose by sub cutaneous injection twice daily NovoLIN N 100 units/mL 10 mL vial Dose : 25 unit(s) =, Subcutaneous, BID, 0 Refill(s) Start Date: 06/15/19 Status: Ordered Start: 03-08-2018 End: 09-22-2023 Insulin Nph Isoph U-100 Tawny n 100 unit/mL suspension Discontinued 20 U SC TWICE A DAY March 08, 2018 1:34pm September 22, 2023 1:15pm 20 UNITS IN THE MORNING 12 UNITS AT BEDTIME Start: 03-08-2018 Insulin Nph Is oph U-100 Human Active 25 UNIT SC TWICE A DAY March 08, 2018 1:34pm Start: 08-10-2016 End: 09-22-2023 Insulin Nph Isoph U-100 Tawny n 100 UNIT/ML suspension Discontinued 25 U SQ DAILY August 10, 2016 12:00am March 08, 2018 1:35pm insulin, regular, human 100 unt/ml injectable solution (20 sources) Insulin Start: 07-24-2016 Insulin Regula r Human 100 UNIT/ML solution Active 12 U SC TWICE A DAY July 24, 2016 12:00am Start: 07-24-2016 Start: 07-24-2016 Insulin Regula r Human Active 25 UNIT SC TWICE A DAY July 24, 2016 12:00am levETIRAcetam 100 mg/ml oral solution (20 sources) Start: 08-18-2023 take 500 mg by mouth twice daily Levetiracetam (Keppra) 100 mg/mL solution Active 500 mg PO TWICE A DAY August 18, 2023 12:00am Start: 09-08-2019 End: 07-03-2023 Levetiracetam 500 mg tablet Discontinued 250 mg PO TWICE A DAY December 07, 2021 4:41pm July 03, 2023 10:53am Start: 08-12-2016 End: 07-03-2023 take 1 tablet by mouth twice daily Levetiracetam 500 MG tablet Discontinued 500 mg PO TWICE A DAY 60 August 27, 2016 4:53pm September 08, 2019 12:06am Start: 08-12-2016 End: 07-03-2023 take 250 mg by mouth twice daily Levetiracetam Discontinued 250 MG PO TWICE A DAY December 07, 2021 4:41pm July 03, 2023 10:53am Menthol / Zinc Oxide (9 sources) Start: 08-18-2023 Menthol-Zinc O xide (Calmoseptine) 0.44-20.6 % ointment Active 1 NMA TOPICAL TWICE A DAY August 18, 2023 12:00am Start: 08-18-2023 Menthol-Zinc O xide (Calmoseptine) 0.44-20.6 % ointment Active 1 APPLIC TOPICAL TWICE A DAY August 17, 2023 11:00pm Start: 08-18-2023 Menthol-Zinc O xide (Calmoseptine) 0.44-20.6 % ointment Active 1 APPLIC TOPICAL TWICE A DAY August 18, 2023 12:00am Multivitamin 1 EACH tablet (2 sources) Start: 07-11-2016 Multivitamin 1 EACH tablet Active 1 NMA PO DAILY July 11, 2016 12:00am Multivitamin preparation (20 sources) Start: 06-15-2019 take 1 tablet by mouth once daily Multivitamin Dose = 1 tab(s), Oral, Daily, 0 Refill(s) Start Date: 06/15/19 Status: Ordered Start: 07-11-2016 Multivitamin A ctive 1 EACH PO DAILY July 11, 2016 12:03pm Start: 07-11-2016 Multivitamin A ctive 1 EACH PO DAILY July 10, 2016 11:00pm Start: 07-11-2016 Multivitamin A ctive 1 EACH PO DAILY July 11, 2016 12:00am nitroglycerin 0.4 mg sublingual tablet (4 sources) Nitrate Vasodilator Start: 03-23-2024 Nitroglyce rin (Nitrostat) 0.4 mg tablet, sublingual Active 0.4 mg SL every 5 to 15 minutes as needed for chest pain March 23, 2024 12:00am do not exceed 3 doses per episode Start: 03-23-2024 Nitroglycerin (Nitrostat) 0.4 mg tablet, sublingual Active 0.4 MG SL every 5 to 15 minutes March 23, 2024 12:00am do not exceed 3 doses per episode Start: 04-30-2021 Nitrostat 0.3 mg sublingual tablet Dose : 0.3 mg = 1 tab(s), Sublingual, q5min, PRN for chest pain, If chest pain not relieved in 5 minutes after first dose, seek immediate medical attention, # 25 tab(s), 11 Refill(s), Pharmacy: [id number], 161, cm, 04/30/21 16:15:00 EDT, He... Start Date: 04/30/21 Status: Ordered NovoLIN R FlexPen (1 source) Start: 08-15-2020 inject 25 [IU] by subcutaneous injection twice daily NovoLIN R FlexPen See Instructions, Subcutaneous 25 units twice daily, 0 Refill(s) Start Date: 08/15/20 Status: Ordered nystatin 100 unt/mg topical powder (16 sources) Polyene Antifungal Start: 08-18-2023 Nystatin (Nystop) 100,000 unit/gram powder Active 1 NMA TOPICAL TWICE A DAY August 18, 2023 12:00am Start: 08-18-2023 Nystatin (Nyst op) 100,000 unit/gram powder Active 1 APPLIC TOPICAL TWICE A DAY August 18, 2023 12:00am Start: 08-18-2023 OLANZapine 2.5 mg oral tablet (20 sources) Atypical Antipsychotic Start: 11-13-2019 take 1 tablet by mouth at bedtime Olanzapine 2.5 mg tablet Active 2.5 mg PO AT BEDTIME November 13, 2019 1:00am Start: 11-13-2019 potassium chloride 20 meq extended release oral tablet (20 sources) Start: 07-03-2023 take 1 tablet by mouth once daily Potassium Chloride 20 mEq tablet extended release Active 20 meq PO DAILY 1 July 03, 2023 12:00am Psyllium Husk (Aspartame) (Daily Fiber (Psyllium-Aspart)) 3 gram Powder In Packet (11 sources) Start: 07-03-2023 Psyllium Husk (Aspartame) (Daily Fiber (Psyllium-Aspart)) 3 gram Powder In Packet Active 1 NMA PO TWICE A DAY 0 July 03, 2023 12:00am Start: 07-03-2023 Psyllium Husk (Aspartame) (Daily Fiber (Psyllium-Aspart)) 3 gram Powder In Packet Active 1 PACKET PO TWICE A DAY 0 July 02, 2023 11:00pm Start: 07-03-2023 Psyllium Husk (Aspartame) (Daily Fiber (Psyllium-Aspart)) 3 gram Powder In Packet Active 1 PACKET PO TWICE A DAY 0 July 03, 2023 12:00am Psyllium Husk (Daily Fiber (Psyllium-Aspart)) 3 gram Powder In Packet (1 source) Start: 07-03-2023 Psyllium Husk (Daily Fiber (Psyllium-Aspart)) 3 gram Powder In Packet Active 1 NMA PO TWICE A DAY 0 July 03, 2023 12:00am sertraline 25 mg oral tablet (20 sources) Serotonin Reuptake Inhibitor Start: 01-10-2018 take 1 tablet by mouth once daily Sertraline 25 MG tablet Active 25 mg PO DAILY January 10, 2018 1:00am (20 sources) Start: 08-18-2023 Start: 07-03-2023 Start: 07-11-2016 Start: 07-11-2016 End: 02-08-2018 Completed/Discontinued Medications Medication Drug Class(es) Dates Sig (Normalized) Sig (Original) [id number] 60 actuat albuterol 0.09 mg/actuat metered dose inhaler (20 sources) beta2-Adrenergic Agonist Start: 02-08-2018 End: 10-24-2018 Albuterol Sulfate 1 INHALER inhaler Discontinued 2 NMA INHALATION EVERY 4 HOURS NEEDED as needed for Dyspnea/Wheezing/Sob February 08, 2018 12:00am October 24, 2018 3:18pm Start: 02-08-2018 End: 10-24-2018 take 1 puff(s) by inhalation every four hours as needed Albuterol Sulfate Discontinued 2 PUFF INHALATION EVERY 4 HOURS NEEDED February 08, 2018 12:00am October 24, 2018 3:18pm Start: 02-08-2018 End: 10-24-2018 atorvastatin 40 mg oral tablet (20 sources) HMG-CoA Reductase Inhibitor Start: 07-11-2016 End: 09-16-2023 take 1 tablet by mouth at bedtime Atorvastatin 40 MG tablet Discontinued 40 mg PO AT BEDTIME July 11, 2016 12:00am September 16, 2023 6:26pm Start: 07-11-2016 End: 09-16-2023 cefTRIAXone 2000 mg injection (20 sources) Cephalosporin Antibacterial Start: 08-12-2016 End: 08-27-2016 take 2 g intravenously every twenty-four hours Ceftriaxone 2 GM Vial Discontinued 2 g IV EVERY 24 HOURS August 12, 2016 12:00am August 27, 2016 4:53pm docusate sodium 50 mg / sennosides, nursing home 8.6 mg oral tablet (16 sources) Start: 08-18-2023 End: 09-24-2024 take 1 tablet by mouth twice daily Sennosides-Docusa te Sodium (2-In-1 Laxative) 8.6-50 mg tablet Discontinued 1 NMA PO TWICE A DAY August 18, 2023 12:00am September 24, 2024 3:39pm Start: 08-18-2023 doxepin hydrochloride 10 mg oral capsule (16 sources) Tricyclic Antidepressant Start: 08-18-2023 End: 09-16-2023 take 1 capsule by mouth once daily Doxepin 10 mg capsule Discontinued 10 mg PO DAILY August 18, 2023 12:00am September 16, 2023 6:25pm doxycycline monohydrate 100 mg oral capsule (20 sources) Tetracycline-class Drug Start: 02-08-2018 End: 03-08-2018 take 1 capsule by mouth twice daily Doxycycline Monohydrate 100 MG capsule Discontinued 100 mg PO TWICE A DAY February 08, 2018 12:00am March 08, 2018 1:35pm 12 hr guaiFENesin 1200 mg extended release oral tablet (20 sources) Start: 02-08-2018 End: 03-08-2018 take 1 tablet by mouth twice daily Guaifenesin 1,200 MG tablet Discontinued 1200 mg PO TWICE A DAY February 08, 2018 12:00am March 08, 2018 1:35pm 24 hr isosorbide mononitrate 30 mg extended release oral tablet (20 sources) Nitrate Vasodilator Start: 05-04-2019 End: 03-28-2024 take 1 tablet by mouth once daily, then take 1 tablet by mouth every twenty-four hours Isosorbide Mononitrate 30 mg tablet extended release 24 hr Discontinued 30 mg PO DAILY February 01, 2023 10:26am March 28, 2024 9:22am Start: 01-10-2018 End: 05-04-2019 take 1 tablet by mouth once daily, then take 2 tablets by mouth every twenty-four hours Isosorbide Mononitrate 60 mg tablet extended release 24 hr Discontinued 30 mg PO DAILY May 04, 2019 2:38pm May 04, 2019 2:39pm Start: 01-10-2018 End: 05-04-2019 take 1 tablet by mouth once daily, then take 1 tablet by mouth every twenty-four hours Isosorbide Mononitrate 60 mg tablet extended release 24 hr Discontinued 60 mg PO DAILY March 19, 2019 11:57am May 04, 2019 2:38pm losartan potassium 25 mg oral tablet (20 sources) Angiotensin 2 Receptor Josey Start: 02-19-2020 End: 12-07-2021 take 1 tablet by mouth once daily Losartan 25 MG tablet Discontinued 25 mg PO DAILY February 19, 2020 12:00am December 07, 2021 4:43pm Start: 11-13-2019 End: 02-05-2020 take 1 tablet by mouth once daily Losartan 25 mg tablet Discontinued 25 mg PO DAILY November 13, 2019 1:00am February 05, 2020 9:29am Start: 10-24-2018 End: 09-10-2019 take 1 tablet by mouth once daily Losartan 25 mg tablet Discontinued 25 mg PO DAILY October 24, 2018 1:00am September 10, 2019 12:16pm metoprolol tartrate 25 mg oral tablet (20 sources) beta-Adrenergic Josey Start: 09-27-2019 End: 07-03-2023 Metoprolol Tartrate 25 MG tablet Discontinued 12.5 mg PO TWICE A DAY September 27, 2019 10:17pm July 03, 2023 10:52am Start: 07-11-2016 End: 10-24-2018 Metoprolol Tartrate 25 MG ta blet Discontinued 12.5 mg PO TWICE A DAY July 11, 2016 12:00am October 24, 2018 3:49pm Start: 07-11-2016 End: 07-03-2023 take 1 tablet by mouth twice daily Metoprolol Tartrate 25 mg tablet Discontinued 25 mg PO TWICE A DAY October 24, 2018 1:00am September 27, 2019 10:18pm Start: 07-11-2016 End: 07-03-2023 take 12.5 mg by mouth twice daily Metoprolol Tartrate Discontinued 12.5 MG PO TWICE A DAY September 27, 2019 10:17pm July 03, 2023 10:52am pantoprazole 20 mg delayed release oral tablet (20 sources) Proton Pump Inhibitor Start: 07-11-2016 End: 11-13-2019 take 1 tablet by mouth once daily Pantoprazole 20 MG tablet Discontinued 20 mg PO DAILY July 11, 2016 12:00am November 13, 2019 3:16pm PARoxetine hydrochloride 20 mg oral tablet (20 sources) Serotonin Reuptake Inhibitor Start: 08-27-2016 End: 12-14-2016 take 1 tablet by mouth once daily Paroxetine Hcl 20 MG tablet Discontinued 20 mg PO DAILY August 27, 2016 12:00am December 14, 2016 2:57pm polysaccharide iron complex 150 mg oral capsule (20 sources) Start: 08-27-2016 End: 02-04-2018 Polysaccharide Iron Complex (Ferrex 150) 150 MG capsule Discontinued 150 mg PO DAILY WITH MEALS August 27, 2016 12:00am February 04, 2018 5:26am Potassium Chloride (Klor-Con) 20 MEQ Packet (20 sources) Start: 07-11-2016 End: 02-08-2018 take 20 mEq by mouth once daily Potassium Chloride (Klor-Con) 20 MEQ Packet Discontinued 20 MEQ PO DAILY July 11, 2016 11:57am February 08, 2018 11:29am Start: 07-11-2016 End: 02-08-2018 take 20 mEq by mouth once daily Potassium Chloride (Klor-Con) 20 MEQ Packet Discontinued 20 meq PO DAILY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 Platelet countOrdered By: Chaim Au on 03-28-2025 Platelets (Bld) [#/Vol] 107 10*3/uL Low 150-450 [facility] Potassium measurement (mass/ volume)Ordered By: Pepe Au on 03-28-2025 Potassium (Unsp spec) [Mass/Vol] 5.3 mmol/L High 3.3-5.1 [facility] RBC Auto (Bld) [#/Vol]Ordere d By: Pepe Au on 03-28-2025 RBC (Bld) [#/Vol] 3.52 10*6/uL Low 4.6-6.2 [facility] Serum creatinine measurement (mass/volume)Ordered By: Pepe Au on 03-28-2025 Creatinine [Mass/Vol] 2.56 mg/dL High 0.70-1.20 [facility] Serum glucose measurement (m ass/volume)Ordered By: Pepe Au on 03-28-2025 Glucose [Mass/Vol] 130 mg/dL High 70-99 [facility] Serum or plasma albumin aubree urement (mass/volume)Ordered By: Pepe Au on 03-28-2025 Albumin [Mass/Vol] 4.0 g/dL 3.4-4.8 [facility] Serum or plasma calcium aubree urement (mass/volume)Ordered By: Pepe Au on 03-28-2025 Calcium [Mass/Vol] 10.6 mg/dL 7.6-11.0 [facility] Serum or plasma ferritin laurie surement (mass/volume)Ordered By: Pepe Au on 03-28-2025 Ferritin [Mass/Vol] 191 ng/mL 37-417 [facility] Serum or plasma iron saturat ion measurement (mass fraction)Ordered By: Pepe Au on 03-28-2025 Iron saturation [Mass fraction] 39.0 % 9-55 [facility] Comment on above: Previous reported re sult: 39.0 %Edited by: GWENDOLYN on 03/28/25:1546 Serum or plasma urea nitroge n measurement (mass/volume)Ordered By: Pepe Au on 03-28-2025 Urea nitrogen [Mass/Vol] 53 mg/dL High 4-19 [facility] Sodium levelOrdered By: Lety Au on 03-28-2025 Sodium [Moles/Vol] 142 mmol/L 133-145 [facility] White blood cell (WBC) count Ordered By: Pepe Au on 03-28-2025 WBC (Bld) [#/Vol] 8.2 10*3/uL 4.4-11.0 [facility] Absolute lymphocyte countOrd ered By: Pepe Au on 02-26-2025 Lymphocytes Auto (Unsp spec) [#/Vol] 1.72 10*3/uL 0.83-4.51 [facility] Absolute neutrophil countOrd ered By: Pepe Au on 02-26-2025 Neutrophils (Bld) [#/Vol] 5.7 10*3/uL 2.0-7.7 [facility] Anion gap in Serum or Plasma Ordered By: Pepe Au on 02-26-2025 Anion gap [Moles/Vol] 16 mmol/L High 5-15 [facility] Automated lymphocyte count a s percentage of total leukocytesOrdered By: Pepe Au on 02-26-2025 Lymphocytes/100 WBC Auto (Unsp spec) 21.0 % 19-41 [facility] BUN/creatinine ratioOrdered By: Pepe Au on 02-26-2025 Urea nitrogen/Creatinine [Mass ratio] 18.1 mg/mg 10-20 [facility] Basophil percentageOrdered B y: Pepe Au on 02-26-2025 Basophils/100 WBC (Bld) 0.4 % 0-1 [facility] Calculated total iron bindin g capacityOrdered By: Pepe Au on 02-26-2025 Total Iron Binding Capacity 218 ug/dL Low 250-450 [facility] Carbon dioxide, total [Moles /volume] in Central venous bloodOrdered By: Pepe Au on 02-26-2025 CO2 [Moles/Vol] 19.8 mmol/L Low 21.0-32.0 [facility] Chloride assayOrdered By: Chaim Au on 02-26-2025 Chloride [Moles/Vol] 107 mmol/L 98-108 [facility] Eosinophil percentageOrdered By: Pepe Au on 02-26-2025 Eosinophils/100 WBC (Bld) 2.3 % 0-5 [facility] Erythrocyte distribution wid th (RBC) [Ratio]Ordered By: Pepe Au on 02-26-2025 Erythrocyte distribution width (RBC) [Entitic vol] 49.2 fL High 35.1-43.9 [facility] Erythrocyte distribution wid th ratioOrdered By: Pepe Au on 02-26-2025 Erythrocyte distribution width (RBC) [Ratio] 13.6 % 11.6-14.6 [facility] Erythrocyte distribution wid th standard deviationOrdered By: Pepe Au on 02-26-2025 Erythrocyte distribution width (RBC) [Ratio] 49.2 fl High 35.1-43.9 [facility] GFR/1.73 sq M.predicted henry g non-blacks MDRD (S/P/Bld) [Vol rate/Area]Ordered By: Pepe Au on 02-26-2025 Estimated GFR (MDRD) Non-Af Amer 25 Low >60 [facility] Comment on above: mL/min/1.73m2 CKD-EP I Creatinine Equation (2020) Glomerular filtration rate ( GFR) estimation/1.73 sq m using serum, plasma, or whole bOrdered By: Pepe Au on 02-26-2025 GFR/1.73 sq M.predicted among non-blacks MDRD (S/P/Bld) [Vol rate/Area] 25 mL/min/{1.73_m2} Low >60 [facility] Comment on above: mL/min/1.73m2 CKD-EP I Creatinine Equation (2020) Hematocrit Auto (Bld) [Volum e fraction]Ordered By: Pepe Au on 02-26-2025 Hematocrit (Bld) [Volume fraction] 35.4 % Low 40-54 [facility] Hemoglobin measurementOrdere d By: Pepe Au on 02-26-2025 Hemoglobin (Bld) [Mass/Vol] 11.3 g/dL Low 13.0-16.5 [facility] Immature granulocytes/100 WB C Auto (Bld)Ordered By: Pepe Au on 02-26-2025 Immature granulocytes/100 WBC (Bld) 0.200 % 0.0-0.9 [facility] Comment on above: IG% - Immature Granu locytes (promyelocytes, myelocytes and metamyelocytes) > 1% indicates that a LEFT SHIFT is Present. Iron (Unsp spec) [Mass/Mass] Ordered By: Pepe Au on 02-26-2025 Iron [Mass/Vol] 75 ug/dL 65-175 [facility] Iron measurement (mass/mass) Ordered By: Pepe Au on 02-26-2025 Iron (Unsp spec) [Mass/Mass] 75 ug/dL 65-175 [facility] Iron saturation [Mass fracti on]Ordered By: Pepe Au on 02-26-2025 Iron Saturation 34.4 % 9-55 [facility] Comment on above: Previous reported re sult: 34.0 %Edited by: JUSTIN on 02/26/25:1611 AMENDED REPORT 02/26/25 1611 IRON SATURATION previously reported as: 34.0 % Lymphocytes Auto (Unsp spec) [#/Vol]Ordered By: Pepe Au on 02-26-2025 Lymphocytes (Bld) [#/Vol] 1.72 10*3/uL 0.83-4.51 [facility] Lymphocytes/100 WBC Auto (Un sp spec)Ordered By: Pepe Au on 02-26-2025 Lymphocytes/100 WBC (Bld) 21.0 % 19-41 [facility] MCV (mean corpuscular volume ) determinationOrdered By: Pepe Au on 02-26-2025 MCV (RBC) [Entitic vol] 98.9 fL High 80-94 [facility] Mean corpuscular hemoglobin (MCH) determinationOrdered By: Pepe Au on 02-26-2025 MCH (RBC) [Entitic mass] 31.6 pg 27.0-32.0 [facility] Mean corpuscular hemoglobin concentration (MCHC) determinationOrdered By: Pepe Au on 02-26-2025 MCHC (RBC) [Mass/Vol] 31.9 g/dL Low 32-36 [facility] Mean platelet volume determi nationOrdered By: Pepe Au on 02-26-2025 Platelet mean volume (Bld) [Entitic vol] 10.8 fL 6.2-12.0 [facility] Monocyte percentageOrdered B y: Pepe Au on 02-26-2025 Monocytes/100 WBC (Bld) 7.0 % 0-10 [facility] Neutrophil percentageOrdered By: Pepe Au on 02-26-2025 Neutrophils/100 WBC (Bld) 69.1 % 47-70 [facility] No Panel InformationOrdered By: Pepe Au on 02-26-2025 Unsaturated Iron Binding Capacity 143 ug/dL Low 228-428 [facility] Nucleated red blood cell per centageOrdered By: Pepe Au on 02-26-2025 Nucleated RBC/100 WBC (Bld) [Ratio] 0 % 0-5 [facility] PTH intactOrdered By: Paula Au on 02-26-2025 Parathyroid Hormone (Intact) 49 pg/mL 11-61 [facility] Platelet countOrdered By: Chaim Au on 02-26-2025 Platelets (Bld) [#/Vol] 114 10*3/uL Low 150-450 [facility] Potassium (Unsp spec) [Mass/ Vol]Ordered By: Pepe Au on 02-26-2025 Potassium [Moles/Vol] 4.8 mmol/L 3.3-5.1 [facility] Potassium measurement (mass/ volume)Ordered By: Pepe Au on 02-26-2025 Potassium (Unsp spec) [Mass/Vol] 4.8 mmol/L 3.3-5.1 [facility] RBC Auto (Bld) [#/Vol]Ordere d By: Pepe Au on 02-26-2025 RBC (Bld) [#/Vol] 3.58 10*6/uL Low 4.6-6.2 [facility] Serum creatinine measurement (mass/volume)Ordered By: Pepe Au on 02-26-2025 Creatinine [Mass/Vol] 2.48 mg/dL High 0.70-1.20 [facility] Serum glucose measurement (m ass/volume)Ordered By: Pepe Au on 02-26-2025 Glucose [Mass/Vol] 136 mg/dL High 70-99 [facility] Serum or plasma albumin aubree urement (mass/volume)Ordered By: Pepe Au on 02-26-2025 Albumin [Mass/Vol] 3.7 g/dL 3.4-4.8 [facility] Serum or plasma calcium aubree urement (mass/volume)Ordered By: Pepe Au on 02-26-2025 Calcium [Mass/Vol] 9.0 mg/dL 7.6-11.0 [facility] Serum or plasma ferritin laurie surement (mass/volume)Ordered By: Pepe Au on 02-26-2025 Ferritin [Mass/Vol] 223 ng/mL 37-417 [facility] Serum or plasma iron saturat ion measurement (mass fraction)Ordered By: Pepe Au on 02-26-2025 Iron saturation [Mass fraction] 34.4 % 9-55 [facility] Comment on above: Previous reported re sult: 34.0 %Edited by: JUSTIN on 02/26/25:1611 AMENDED REPORT 02/26/25 1611 IRON SATURATION previously reported as: 34.0 % Serum or plasma urea nitroge n measurement (mass/volume)Ordered By: Pepe Au on 02-26-2025 Urea nitrogen [Mass/Vol] 45 mg/dL High 4-19 [facility] Serum phosphorus measurement Ordered By: Pepe Au on 02-26-2025 Phosphorus Level 3.2 mg/dL 2.7-4.5 [facility] Sodium levelOrdered By: Lety Au on 02-26-2025 Sodium [Moles/Vol] 143 mmol/L 133-145 [facility] White blood cell (WBC) count Ordered By: Pepe Au on 02-26-2025 WBC (Bld) [#/Vol] 8.2 10*3/uL 4.4-11.0 [facility] Absolute lymphocyte countOrd ered By: Pepe Au on 01-29-2025 Lymphocytes Auto (Unsp spec) [#/Vol] 1.70 10*3/uL 0.83-4.51 [facility] Absolute neutrophil countOrd ered By: Pepe Au on 01-29-2025 Neutrophils (Bld) [#/Vol] 8.4 10*3/uL High 2.0-7.7 [facility] Anion gap in Serum or Plasma Ordered By: Pepe Au on 01-29-2025 Anion gap [Moles/Vol] 14 mmol/L 5-15 [facility] Automated lymphocyte count a s percentage of total leukocytesOrdered By: Pepe Au on 01-29-2025 Lymphocytes/100 WBC Auto (Unsp spec) 15.5 % Low 19-41 [facility] BUN/creatinine ratioOrdered By: Pepe Au on 01-29-2025 Urea nitrogen/Creatinine [Mass ratio] 20.8 mg/mg High 10-20 [facility] Basophil percentageOrdered B y: Pepe Au on 01-29-2025 Basophils/100 WBC (Bld) 0.3 % 0-1 [facility] Calculated total iron bindin g capacityOrdered By: Pepe Au on 01-29-2025 Total Iron Binding Capacity 242 ug/dL Low 250-450 [facility] Carbon dioxide, total [Moles /volume] in Central venous bloodOrdered By: Pepe Au on 01-29-2025 CO2 [Moles/Vol] 21.4 mmol/L 21.0-32.0 [facility] Chloride assayOrdered By: Chaim Au on 01-29-2025 Chloride [Moles/Vol] 106 mmol/L 98-108 [facility] Eosinophil percentageOrdered By: Pepe Au on 01-29-2025 Eosinophils/100 WBC (Bld) 1.0 % 0-5 [facility] Erythrocyte distribution wid th (RBC) [Ratio]Ordered By: Pepe Au on 01-29-2025 Erythrocyte distribution width (RBC) [Entitic vol] 45.9 fL High 35.1-43.9 [facility] Erythrocyte distribution wid th ratioOrdered By: Pepe Au on 01-29-2025 Erythrocyte distribution width (RBC) [Ratio] 12.9 % 11.6-14.6 [facility] Erythrocyte distribution wid th standard deviationOrdered By: Pepe Au on 01-29-2025 Erythrocyte distribution width (RBC) [Ratio] 45.9 fl High 35.1-43.9 [facility] GFR/1.73 sq M.predicted henry g non-blacks MDRD (S/P/Bld) [Vol rate/Area]Ordered By: Pepe Au on 01-29-2025 Estimated GFR (MDRD) Non-Af Amer 24 Low >60 [facility] Comment on above: mL/min/1.73m2 CKD-EP I Creatinine Equation (2020) Glomerular filtration rate ( GFR) estimation/1.73 sq m using serum, plasma, or whole bOrdered By: Pepe Au on 01-29-2025 GFR/1.73 sq M.predicted among non-blacks MDRD (S/P/Bld) [Vol rate/Area] 24 mL/min/{1.73_m2} Low >60 [facility] Comment on above: mL/min/1.73m2 CKD-EP I Creatinine Equation (2020) Hematocrit Auto (Bld) [Volum e fraction]Ordered By: Pepe Au on 01-29-2025 Hematocrit (Bld) [Volume fraction] 37.9 % Low 40-54 [facility] Hemoglobin measurementOrdere d By: Pepe Au on 01-29-2025 Hemoglobin (Bld) [Mass/Vol] 12.3 g/dL Low 13.0-16.5 [facility] Immature granulocytes/100 WB C Auto (Bld)Ordered By: Pepe Au on 01-29-2025 Immature granulocytes/100 WBC (Bld) 0.400 % 0.0-0.9 [facility] Comment on above: IG% - Immature Granu locytes (promyelocytes, myelocytes and metamyelocytes) > 1% indicates that a LEFT SHIFT is Present. Iron (Unsp spec) [Mass/Mass] Ordered By: Pepe Au on 01-29-2025 Iron [Mass/Vol] 84 ug/dL 65-175 [facility] Iron measurement (mass/mass) Ordered By: Pepe Au on 01-29-2025 Iron (Unsp spec) [Mass/Mass] 84 ug/dL 65-175 [facility] Iron saturation [Mass fracti on]Ordered By: Pepe Au on 01-29-2025 Iron Saturation 35.0 % 15.0-55.0 [facility] Lymphocytes Auto (Unsp spec) [#/Vol]Ordered By: Pepe Au on 01-29-2025 Lymphocytes (Bld) [#/Vol] 1.70 10*3/uL 0.83-4.51 [facility] Lymphocytes/100 WBC Auto (Un sp spec)Ordered By: Pepe Au on 01-29-2025 Lymphocytes/100 WBC (Bld) 15.5 % Low 19-41 [facility] MCV (mean corpuscular volume ) determinationOrdered By: Pepe Au on 01-29-2025 MCV (RBC) [Entitic vol] 98.2 fL High 80-94 [facility] Mean corpuscular hemoglobin (MCH) determinationOrdered By: Pepe Au on 01-29-2025 MCH (RBC) [Entitic mass] 31.9 pg 27.0-32.0 [facility] Mean corpuscular hemoglobin concentration (MCHC) determinationOrdered By: Pepe Au on 01-29-2025 MCHC (RBC) [Mass/Vol] 32.5 g/dL 32-36 [facility] Mean platelet volume determi nationOrdered By: Pepe Au on 01-29-2025 Platelet mean volume (Bld) [Entitic vol] 11.5 fL 6.2-12.0 [facility] Monocyte percentageOrdered B y: Pepe Au on 01-29-2025 Monocytes/100 WBC (Bld) 6.5 % 0-10 [facility] Neutrophil percentageOrdered By: Pepe Au on 01-29-2025 Neutrophils/100 WBC (Bld) 76.3 % High 47-70 [facility] No Panel InformationOrdered By: Pepe Au on 01-29-2025 Unsaturated Iron Binding Capacity 158 ug/dL Low 228-428 [facility] Nucleated red blood cell per centageOrdered By: Pepe Au on 01-29-2025 Nucleated RBC/100 WBC (Bld) [Ratio] 0 % 0-5 [facility] PTH intactOrdered By: Paula Au on 01-29-2025 Parathyroid Hormone (Intact) 30 pg/mL 11-61 [facility] Platelet countOrdered By: Chaim Au on 01-29-2025 Platelets (Bld) [#/Vol] 115 10*3/uL Low 150-450 [facility] Potassium (Unsp spec) [Mass/ Vol]Ordered By: Pepe Au on 01-29-2025 Potassium [Moles/Vol] 4.4 mmol/L 3.3-5.1 [facility] Potassium measurement (mass/ volume)Ordered By: Pepe Au on 01-29-2025 Potassium (Unsp spec) [Mass/Vol] 4.4 mmol/L 3.3-5.1 [facility] RBC Auto (Bld) [#/Vol]Ordere d By: Pepe Au on 01-29-2025 RBC (Bld) [#/Vol] 3.86 10*6/uL Low 4.6-6.2 [facility] Serum creatinine measurement (mass/volume)Ordered By: Pepe Au on 01-29-2025 Creatinine [Mass/Vol] 2.59 mg/dL High 0.70-1.20 [facility] Serum glucose measurement (m ass/volume)Ordered By: Pepe Au on 01-29-2025 Glucose [Mass/Vol] 110 mg/dL High 70-99 [facility] Serum or plasma albumin aubree urement (mass/volume)Ordered By: Pepe Au on 01-29-2025 Albumin [Mass/Vol] 4.0 g/dL 3.4-4.8 [facility] Serum or plasma calcium aubree urement (mass/volume)Ordered By: Pepe Au on 01-29-2025 Calcium [Mass/Vol] 9.8 mg/dL 7.6-11.0 [facility] Serum or plasma ferritin laurie surement (mass/volume)Ordered By: Pepe Au on 01-29-2025 Ferritin [Mass/Vol] 252 ng/mL 37-417 [facility] Serum or plasma iron saturat ion measurement (mass fraction)Ordered By: Pepe Au on 01-29-2025 Iron saturation [Mass fraction] 35.0 % 15.0-55.0 [facility] Serum or plasma urea nitroge n measurement (mass/volume)Ordered By: Pepe Au on 01-29-2025 Urea nitrogen [Mass/Vol] 54 mg/dL High 4-19 [facility] Serum phosphorus measurement Ordered By: Pepe Au on 01-29-2025 Phosphorus Level 3.1 mg/dL 2.7-4.5 [facility] Sodium levelOrdered By: Lety Au on 01-29-2025 Sodium [Moles/Vol] 141 mmol/L 133-145 [facility] White blood cell (WBC) count Ordered By: Pepe Au on 01-29-2025 WBC (Bld) [#/Vol] 11.0 10*3/uL 4.4-11.0 [facility] Absolute lymphocyte countOrd ered By: Pepe Au on 01-01-2025 Lymphocytes Auto (Unsp spec) [#/Vol] 1.90 10*3/uL 0.83-4.51 [facility] Absolute neutrophil countOrd ered By: Pepe Au on 01-01-2025 Neutrophils (Bld) [#/Vol] 5.0 10*3/uL 2.0-7.7 [facility] Automated lymphocyte count a s percentage of total leukocytesOrdered By: Pepe Au on 01-01-2025 Lymphocytes/100 WBC Auto (Unsp spec) 24.6 % 19-41 [facility] Basophil percentageOrdered B y: Pepe Au on 01-01-2025 Basophils/100 WBC (Bld) 0.5 % 0-1 [facility] Blood urea nitrogen (BUN)/cr eatinine ratioOrdered By: Pepe Au on 01-01-2025 Urea nitrogen/Creatinine [Mass ratio] 19.0 mg/mg 10-20 [facility] Carbon dioxide measurementOr dered By: Pepe Au on 01-01-2025 CO2 [Moles/Vol] 28.0 mmol/L 21.0-32.0 [facility] Chloride measurementOrdered By: Pepe Au on 01-01-2025 Chloride [Moles/Vol] 110 mmol/L High 98-107 [facility] Eosinophil percentageOrdered By: Pepe Au on 01-01-2025 Eosinophils/100 WBC (Bld) 2.3 % 0-5 [facility] Erythrocyte distribution wid th (RBC) [Ratio]Ordered By: Pepe Au on 01-01-2025 Erythrocyte distribution width (RBC) [Entitic vol] 49.0 fL High 35.1-43.9 [facility] Erythrocyte distribution wid th ratioOrdered By: Pepe Au on 01-01-2025 Erythrocyte distribution width (RBC) [Ratio] 13.2 % 11.6-14.6 [facility] Erythrocyte distribution wid th standard deviationOrdered By: Pepe Au on 01-01-2025 Erythrocyte distribution width (RBC) [Ratio] 49.0 fl High 35.1-43.9 [facility] Estimated glomerular filtrat ion rate (GFR) AmericanOrdered By: Pepe Au on 01-01-2025 Estimated GFR (MDRD) Amer 31 mL/min Low >60 [facility] Comment on above: GFR Calc Ferritin measurementOrdered By: Pepe Au on 01-01-2025 Ferritin [Mass/Vol] 152 ng/mL 26-388 [facility] Glomerular filtration rate ( GFR) estimationOrdered By: Pepe Au on 01-01-2025 Estimated GFR (MDRD) Non-Af Amer 25 mL/min Low >60 [facility] Comment on above: Non- GFR Calc GFR/1.73 sq M.predicted among non-blacks MDRD (S/P/Bld) [Vol rate/Area] 25 mL/min/{1.73_m2} Low >60 [facility] Comment on above: Non- GFR Calc Glucose measurementOrdered B y: Pepe Au on 01-01-2025 Glucose [Mass/Vol] 124 mg/dL High 74-106 [facility] Comment on above: Fasting Glucose resu lt from 100 to 125 mg/dL suggests IMPAIRED HOMEOSTASIS per A.D.A. criteria. Hematocrit Auto (Bld) [Volum e fraction]Ordered By: Pepe Au on 01-01-2025 Hematocrit (Bld) [Volume fraction] 35.8 % Low 40-54 [facility] Hemoglobin measurementOrdere d By: Pepe Au on 01-01-2025 Hemoglobin (Bld) [Mass/Vol] 11.5 g/dL Low 13.0-16.5 [facility] Immature granulocytes/100 WB C Auto (Bld)Ordered By: Pepe Au on 01-01-2025 Immature granulocytes/100 WBC (Bld) 0.400 % 0.0-0.9 [facility] Comment on above: IG% - Immature Granu locytes (promyelocytes, myelocytes and metamyelocytes) > 1% indicates that a LEFT SHIFT is Present. Iron (Unsp spec) [Mass/Mass] Ordered By: Pepe Au on 01-01-2025 Iron [Mass/Vol] 53 ug/dL Low 65-175 [facility] Iron measurement (mass/mass) Ordered By: Pepe Au on 01-01-2025 Iron (Unsp spec) [Mass/Mass] 53 ug/dL Low 65-175 [facility] Iron saturation [Mass fracti on]Ordered By: Pepe Au on 01-01-2025 Iron Saturation 25.1 % 15.0-55.0 [facility] Lymphocytes Auto (Unsp spec) [#/Vol]Ordered By: Pepe Au on 01-01-2025 Lymphocytes (Bld) [#/Vol] 1.90 10*3/uL 0.83-4.51 [facility] Lymphocytes/100 WBC Auto (Un sp spec)Ordered By: Pepe Au on 01-01-2025 Lymphocytes/100 WBC (Bld) 24.6 % 19-41 [facility] MCV (mean corpuscular volume ) determinationOrdered By: Pepe Au on 01-01-2025 MCV (RBC) [Entitic vol] 100.3 fL High 80-94 [facility] Mean corpuscular hemoglobin (MCH) determinationOrdered By: Pepe Au on 01-01-2025 MCH (RBC) [Entitic mass] 32.2 pg High 27.0-32.0 [facility] Mean corpuscular hemoglobin concentration (MCHC) determinationOrdered By: Pepe Au on 01-01-2025 MCHC (RBC) [Mass/Vol] 32.1 g/dL 32-36 [facility] Mean platelet volume determi nationOrdered By: Pepe Au on 01-01-2025 Platelet mean volume (Bld) [Entitic vol] 10.5 fL 6.2-12.0 [facility] Monocyte percentageOrdered B y: Pepe Au on 01-01-2025 Monocytes/100 WBC (Bld) 7.0 % 0-10 [facility] Neutrophil percentageOrdered By: Pepe Au on 01-01-2025 Neutrophils/100 WBC (Bld) 65.2 % 47-70 [facility] Nucleated red blood cell per centageOrdered By: Pepe Au on 01-01-2025 Nucleated RBC/100 WBC (Bld) [Ratio] 0 % 0-5 [facility] Phosphorus measurementOrdere d By: Pepe Au on 01-01-2025 Phosphorus Level 3.4 mg/dL 2.5-4.9 [facility] Platelet countOrdered By: Chaim Au on 01-01-2025 Platelets (Bld) [#/Vol] 105 10*3/uL Low 150-450 [facility] Potassium measurementOrdered By: Pepe Au on 01-01-2025 Potassium [Moles/Vol] 4.8 mmol/L 3.5-5.1 [facility] RBC Auto (Bld) [#/Vol]Ordere d By: Pepe Au on 01-01-2025 RBC (Bld) [#/Vol] 3.57 10*6/uL Low 4.6-6.2 [facility] Serum or plasma albumin aubree urement (mass/volume)Ordered By: Pepe Au on 01-01-2025 Albumin [Mass/Vol] 3.4 g/dL 3.2-5.0 [facility] Serum or plasma calcium aubree urement (mass/volume)Ordered By: Pepe Au on 01-01-2025 Calcium [Mass/Vol] 10.2 mg/dL High 8.5-10.1 [facility] Serum or plasma creatinine m easurement (mass/volume)Ordered By: Pepe Au on 01-01-2025 Creatinine [Mass/Vol] 2.58 mg/dL High 0.70-1.30 [facility] Comment on above: The validity of the calculated GFR & GFRAA in patients over 70 years has not been determined. Clinical correlation is essential. Serum or plasma iron saturat ion measurement (mass fraction)Ordered By: Pepe Au on 01-01-2025 Iron saturation [Mass fraction] 25.1 % 15.0-55.0 [facility] Serum or plasma urea nitroge n measurement (mass/volume)Ordered By: Pepe Au on 01-01-2025 Urea nitrogen [Mass/Vol] 49 mg/dL High 7-18 [facility] Sodium levelOrdered By: Lety Au on 01-01-2025 Sodium [Moles/Vol] 142 mmol/L 136-145 [facility] TIBCOrdered By: Pepe coley on 01-01-2025 Total Iron Binding Capacity 211 ug/dL Low 250-450 [facility] White blood cell (WBC) count Ordered By: Pepe Au on 01-01-2025 WBC (Bld) [#/Vol] 7.7 10*3/uL 4.4-11.0 [facility] Absolute neutrophil countOrd ered By: Pepe Au on 12-04-2024 Neutrophils (Bld) [#/Vol] 4.9 10*3/uL 2.0-7.7 [facility] Basophil percentageOrdered B y: Pepe Au on 12-04-2024 Basophils/100 WBC (Bld) 0.5 % 0-1 [facility] Blood urea nitrogen (BUN)/cr eatinine ratioOrdered By: Pepe Au on 12-04-2024 Urea nitrogen/Creatinine [Mass ratio] 18.9 mg/mg 10-20 [facility] Carbon dioxide measurementOr dered By: Pepe Au on 12-04-2024 CO2 [Moles/Vol] 24.0 mmol/L 21.0-32.0 [facility] Chloride measurementOrdered By: Pepe Au on 12-04-2024 Chloride [Moles/Vol] 116 mmol/L High 98-107 [facility] Eosinophil percentageOrdered By: Pepe Au on 12-04-2024 Eosinophils/100 WBC (Bld) 2.8 % 0-5 [facility] Erythrocyte distribution wid th (RBC) [Ratio]Ordered By: Pepe Au on 12-04-2024 Erythrocyte distribution width (RBC) [Entitic vol] 54.9 fL High 35.1-43.9 [facility] Erythrocyte distribution wid th ratioOrdered By: Pepe Au on 12-04-2024 Erythrocyte distribution width (RBC) [Ratio] 14.7 % High 11.6-14.6 [facility] Estimated glomerular filtrat ion rate (GFR) AmericanOrdered By: Pepe Au on 12-04-2024 Estimated GFR (MDRD) Amer 31 mL/min Low >60 [facility] Comment on above: GFR Calc Ferritin measurementOrdered By: Pepe Au on 12-04-2024 Ferritin [Mass/Vol] 140 ng/mL 26-388 [facility] Glomerular filtration rate ( GFR) estimationOrdered By: Pepe Au on 12-04-2024 Estimated GFR (MDRD) Non-Af Amer 26 mL/min Low >60 [facility] Comment on above: Non- GFR Calc Glucose measurementOrdered B y: Pepe Au on 12-04-2024 Glucose [Mass/Vol] 128 mg/dL High 74-106 [facility] Comment on above: Fasting Glucose resu lt greater than or equal to 126 mg/dL suggests DIABETES MELLITUS per A.D.A. criteria. Hematocrit Auto (Bld) [Volum e fraction]Ordered By: Pepe Au on 12-04-2024 Hematocrit (Bld) [Volume fraction] 36.7 % Low 40-54 [facility] Hemoglobin measurementOrdere d By: Pepe Au on 12-04-2024 Hemoglobin (Bld) [Mass/Vol] 11.6 g/dL Low 13.0-16.5 [facility] Immature granulocytes/100 WB C Auto (Bld)Ordered By: Pepe Au on 12-04-2024 Immature granulocytes/100 WBC (Bld) 0.400 % 0.0-0.9 [facility] Comment on above: IG% - Immature Granu locytes (promyelocytes, myelocytes and metamyelocytes) > 1% indicates that a LEFT SHIFT is Present. Iron (Unsp spec) [Mass/Mass] Ordered By: Pepe Au on 12-04-2024 Iron [Mass/Vol] 77 ug/dL 65-175 [facility] Iron saturation [Mass fracti on]Ordered By: Pepe Au on 12-04-2024 Iron Saturation 32.0 % 15.0-55.0 [facility] Lymphocytes Auto (Unsp spec) [#/Vol]Ordered By: Pepe Au on 12-04-2024 Lymphocytes (Bld) [#/Vol] 1.91 10*3/uL 0.83-4.51 [facility] Lymphocytes/100 WBC Auto (Un sp spec)Ordered By: Pepe Au on 12-04-2024 Lymphocytes/100 WBC (Bld) 25.4 % 19-41 [facility] MCV (mean corpuscular volume ) determinationOrdered By: Pepe Au on 12-04-2024 MCV (RBC) [Entitic vol] 101.7 fL High 80-94 [facility] Mean corpuscular hemoglobin (MCH) determinationOrdered By: Pepe Au on 12-04-2024 MCH (RBC) [Entitic mass] 32.1 pg High 27.0-32.0 [facility] Mean corpuscular hemoglobin concentration (MCHC) determinationOrdered By: Pepe Au on 12-04-2024 MCHC (RBC) [Mass/Vol] 31.6 g/dL Low 32-36 [facility] Mean platelet volume determi nationOrdered By: Pepe Au on 12-04-2024 Platelet mean volume (Bld) [Entitic vol] 10.7 fL 6.2-12.0 [facility] Monocyte percentageOrdered B y: Pepe Au on 12-04-2024 Monocytes/100 WBC (Bld) 6.4 % 0-10 [facility] Neutrophil percentageOrdered By: Pepe Au on 12-04-2024 Neutrophils/100 WBC (Bld) 64.5 % 47-70 [facility] Nucleated red blood cell per centageOrdered By: Pepe Au on 12-04-2024 Nucleated RBC/100 WBC (Bld) [Ratio] 0 % 0-5 [facility] Phosphorus measurementOrdere d By: Pepe Au on 12-04-2024 Phosphorus Level 3.2 mg/dL 2.5-4.9 [facility] Platelet countOrdered By: Chaim Au on 12-04-2024 Platelets (Bld) [#/Vol] 117 10*3/uL Low 150-450 [facility] Potassium measurementOrdered By: Pepe Au on 12-04-2024 Potassium [Moles/Vol] 5.0 mmol/L 3.5-5.1 [facility] RBC Auto (Bld) [#/Vol]Ordere d By: Pepe Au on 12-04-2024 RBC (Bld) [#/Vol] 3.61 10*6/uL Low 4.6-6.2 [facility] Serum or plasma albumin aubree urement (mass/volume)Ordered By: Pepe Au on 12-04-2024 Albumin [Mass/Vol] 3.5 g/dL 3.2-5.0 [facility] Serum or plasma calcium aubree urement (mass/volume)Ordered By: Pepe Au on 01-07-2025 Calcium [Mass/Vol] 9.6 mg/dL 8.5-10.1 [facility] Serum or plasma creatinine m easurement (mass/volume)Ordered By: Pepe Au on 12-04-2024 Creatinine [Mass/Vol] 2.54 mg/dL High 0.70-1.30 [facility] Comment on above: The validity of the calculated GFR & GFRAA in patients over 70 years has not been determined. Clinical correlation is essential. Serum or plasma urea nitroge n measurement (mass/volume)Ordered By: Pepe Au on 12-04-2024 Urea nitrogen [Mass/Vol] 48 mg/dL High 7-18 [facility] Sodium levelOrdered By: Lety Au on 12-04-2024 Sodium [Moles/Vol] 143 mmol/L 136-145 [facility] TIBCOrdered By: Pepe coley on 12-04-2024 Total Iron Binding Capacity 241 ug/dL Low 250-450 [facility] White blood cell (WBC) count Ordered By: Pepe Au on 12-04-2024 WBC (Bld) [#/Vol] 7.5 10*3/uL 4.4-11.0 [facility] Absolute neutrophil countOrd ered By: Pepe Au on 10-31-2024 Neutrophils (Bld) [#/Vol] 4.2 10*3/uL 2.0-7.7 [facility] Basophil percentageOrdered B y: Pepe Au on 10-31-2024 Basophils/100 WBC (Bld) 0.3 % 0-1 [facility] Blood urea nitrogen (BUN)/cr eatinine ratioOrdered By: Pepe Au on 10-31-2024 Urea nitrogen/Creatinine [Mass ratio] 27.8 mg/mg High 10-20 [facility] Carbon dioxide measurementOr dered By: Pepe Au on 10-31-2024 CO2 [Moles/Vol] 24.0 mmol/L 21.0-32.0 [facility] Chloride measurementOrdered By: Pepe Au on 10-31-2024 Chloride [Moles/Vol] 113 mmol/L High 98-107 [facility] Eosinophil percentageOrdered By: Pepe Au on 10-31-2024 Eosinophils/100 WBC (Bld) 4.2 % 0-5 [facility] Erythrocyte distribution wid th (RBC) [Ratio]Ordered By: Pepe Au on 10-31-2024 Erythrocyte distribution width (RBC) [Entitic vol] 51.4 fL High 35.1-43.9 [facility] Erythrocyte distribution wid th ratioOrdered By: Pepe Au on 10-31-2024 Erythrocyte distribution width (RBC) [Ratio] 14.3 % 11.6-14.6 [facility] Estimated glomerular filtrat ion rate (GFR) AmericanOrdered By: Pepe Au on 10-31-2024 Estimated GFR (MDRD) Amer 32 mL/min Low >60 [facility] Comment on above: GFR Calc Ferritin measurementOrdered By: Pepe Au on 10-31-2024 Ferritin [Mass/Vol] 176 ng/mL 26-388 [facility] Glomerular filtration rate ( GFR) estimationOrdered By: Pepe Au on 10-31-2024 Estimated GFR (MDRD) Non-Af Amer 26 mL/min Low >60 [facility] Comment on above: Non- GFR Calc Glucose measurementOrdered B y: Pepe Au on 10-31-2024 Glucose [Mass/Vol] 145 mg/dL High 74-106 [facility] Comment on above: Fasting Glucose resu lt greater than or equal to 126 mg/dL suggests DIABETES MELLITUS per A.D.A. criteria. Hematocrit Auto (Bld) [Volum e fraction]Ordered By: Pepe Au on 10-31-2024 Hematocrit (Bld) [Volume fraction] 33.6 % Low 40-54 [facility] Hemoglobin measurementOrdere d By: Pepe Au on 10-31-2024 Hemoglobin (Bld) [Mass/Vol] 10.9 g/dL Low 13.0-16.5 [facility] Immature granulocytes/100 WB C Auto (Bld)Ordered By: Pepe Au on 10-31-2024 Immature granulocytes/100 WBC (Bld) 0.600 % 0.0-0.9 [facility] Comment on above: IG% - Immature Granu locytes (promyelocytes, myelocytes and metamyelocytes) > 1% indicates that a LEFT SHIFT is Present. Intact parathyroid hormone ( iPTH) measurementOrdered By: Pepe Au on 10-31-2024 Parathyroid Hormone (Intact) 16.0 pg/mL Low 18.4-80.1 [facility] Iron (Unsp spec) [Mass/Mass] Ordered By: Pepe Au on 10-31-2024 Iron [Mass/Vol] 63 ug/dL Low 65-175 [facility] Iron saturation [Mass fracti on]Ordered By: Pepe Au on 10-31-2024 Iron Saturation 26.7 % 15.0-55.0 [facility] Lymphocytes Auto (Unsp spec) [#/Vol]Ordered By: Pepe Au on 10-31-2024 Lymphocytes (Bld) [#/Vol] 1.70 10*3/uL 0.83-4.51 [facility] Lymphocytes/100 WBC Auto (Un sp spec)Ordered By: Pepe Au on 10-31-2024 Lymphocytes/100 WBC (Bld) 25.4 % 19-41 [facility] MCV (mean corpuscular volume ) determinationOrdered By: Pepe Au on 10-31-2024 MCV (RBC) [Entitic vol] 99.4 fL High 80-94 [facility] Mean corpuscular hemoglobin (MCH) determinationOrdered By: Pepe Au on 10-31-2024 MCH (RBC) [Entitic mass] 32.2 pg High 27.0-32.0 [facility] Mean corpuscular hemoglobin concentration (MCHC) determinationOrdered By: Pepe Au on 10-31-2024 MCHC (RBC) [Mass/Vol] 32.4 g/dL 32-36 [facility] Mean platelet volume determi nationOrdered By: Pepe Au on 10-31-2024 Platelet mean volume (Bld) [Entitic vol] 10.8 fL 6.2-12.0 [facility] Monocyte percentageOrdered B y: Pepe Au on 10-31-2024 Monocytes/100 WBC (Bld) 6.4 % 0-10 [facility] Neutrophil percentageOrdered By: Pepe Au on 10-31-2024 Neutrophils/100 WBC (Bld) 63.1 % 47-70 [facility] Nucleated red blood cell per centageOrdered By: Pepe Au on 10-31-2024 Nucleated RBC/100 WBC (Bld) [Ratio] 0 % 0-5 [facility] Phosphorus measurementOrdere d By: Pepe Au on 10-31-2024 Phosphorus Level 3.5 mg/dL 2.5-4.9 [facility] Platelet countOrdered By: Chaim Au on 10-31-2024 Platelets (Bld) [#/Vol] 133 10*3/uL Low 150-450 [facility] Potassium measurementOrdered By: Pepe Au on 10-31-2024 Potassium [Moles/Vol] 4.4 mmol/L 3.5-5.1 [facility] RBC Auto (Bld) [#/Vol]Ordere d By: Pepe Au on 10-31-2024 RBC (Bld) [#/Vol] 3.38 10*6/uL Low 4.6-6.2 [facility] Serum or plasma albumin aubree urement (mass/volume)Ordered By: Pepe Au on 10-31-2024 Albumin [Mass/Vol] 3.4 g/dL 3.2-5.0 [facility] Serum or plasma calcium aubree urement (mass/volume)Ordered By: Pepe Au on 10-31-2024 Calcium [Mass/Vol] 9.7 mg/dL 8.5-10.1 [facility] Serum or plasma creatinine m easurement (mass/volume)Ordered By: Pepe Au on 10-31-2024 Creatinine [Mass/Vol] 2.52 mg/dL High 0.70-1.30 [facility] Comment on above: The validity of the calculated GFR & GFRAA in patients over 70 years has not been determined. Clinical correlation is essential. Serum or plasma urea nitroge n measurement (mass/volume)Ordered By: Pepe Au on 10-31-2024 Urea nitrogen [Mass/Vol] 70 mg/dL High 7-18 [facility] Sodium levelOrdered By: Lety Au on 10-31-2024 Sodium [Moles/Vol] 143 mmol/L 136-145 [facility] TIBCOrdered By: Pepe coley on 10-31-2024 Total Iron Binding Capacity 236 ug/dL Low 250-450 [facility] White blood cell (WBC) count Ordered By: Pepe Au on 10-31-2024 WBC (Bld) [#/Vol] 6.7 10*3/uL 4.4-11.0 [facility] Basophil percentageOrdered B y: Rios Downey on 03-22-2024 Bilirubin [Mass/Vol] 0.60 mg/dL 0.20-1.00 [facility] Comment on above: For patients on eltr ombopag therapy, use of Dimension [place] TBIL is not recommended. Chloride [Moles/Vol] 113 mmol/L 98-107 [facility] Cholesterol [Mass/Vol] 191 mg/dL <200 [facility] Comment on above: <200 mg/dL Desirable 200-240 mg/dL Borderline >240 mg/dL High Risk Glucose [Mass/Vol] 133 mg/dL 74-106 [facility] Comment on above: Fasting Glucose resu lt greater than or equal to 126 mg/dL suggests DIABETES MELLITUS per A.D.A. criteria. Hemoglobin (Bld) [Mass/Vol] 11.4 g/dL 13.0-16.5 [facility] Potassium [Moles/Vol] 4.7 mmol/L 3.5-5.1 [facility] Protein [Mass/Vol] 7.4 g/dL 6.4-8.2 [facility] Sodium [Moles/Vol] 143 mmol/L 136-145 [facility] Triglyceride [Mass/Vol] 132 mg/dL <199 [facility] Comment on above: The drugs N-Acetylcy steine and Metamizole may falsely depress this assay.Serum Triglycerides Reference Interval Normal <150 mg/dL Borderline high 150 - 199 mg/dL High 200 - 499 mg/dL Very High > or = 500 mg/dL WBC (Bld) [#/Vol] 8.3 10*3/uL 4.4-11.0 [facility] Cholesterol in LDL Direct as say [Mass/Vol]Ordered By: Rios Downey on 03-22-2024 Cholesterol in LDL [Mass/Vol] 140 mg/dL 0-99 [facility] Determination of erythrocyte mean corpuscular volume (MCV)Ordered By: Rios Downey on 03-22-2024 MCV (RBC) [Entitic vol] 96.2 fL 80-94 [facility] Erythrocyte distribution wid th ratioOrdered By: Rios Downey on 03-22-2024 Erythrocyte distribution width (RBC) [Ratio] 15.1 % 11.6-14.6 [facility] Erythrocyte distribution wid th standard deviationOrdered By: Rios Downey on 03-22-2024 Erythrocyte distribution width (RBC) [Entitic vol] 52.4 fL 35.1-43.9 [facility] Hematocrit Auto (Bld) [Volum e fraction]Ordered By: Rios Downey on 03-22-2024 Hematocrit (Bld) [Volume fraction] 35.8 % 40-54 [facility] Laboratory - Chemistry and C hemistry - challengeOrdered By: Rios Downey on 03-22-2024 Albumin/Globulin [Mass ratio] 0.8 {ratio} 0.9-2.4 [facility] ALP [Catalytic activity/Vol] 141 U/L 45-117 [facility] ALT [Catalytic activity/Vol] 14 U/L 16-61 [facility] Cholesterol in HDL [Mass/Vol] 33 mg/dL >40 [facility] Comment on above: The drugs N-Acetylcy steine and Metamizole may falsely depress this assay. Reference Range HDL <40 mg/dL Low HDL Cholesterol HDL >or= 60 mg/dL High HDL Cholesterol Cholesterol in LDL [Mass/Vol] 132 mg/dL 0-130 [facility] CO2 [Moles/Vol] 24.0 mmol/L 21.0-32.0 [facility] Cobalamin (Vitamin B12) [Mass/Vol] 470 pg/mL 211-911 [facility] Globulin (S) [Mass/Vol] 4.1 g/dL 2.2-4.2 [facility] Magnesium [Mass/Vol] 1.8 mg/dL 1.6-2.6 [facility] Urea nitrogen/Creatinine [Mass ratio] 18.2 mg/mg 10-20 [facility] Laboratory - Hematology and Cell countsOrdered By: Rios Downey on 03-22-2024 MCH (RBC) [Entitic mass] 30.6 pg 27.0-32.0 [facility] MCHC (RBC) [Mass/Vol] 31.8 g/dL 32-36 [facility] Platelet mean volume (Bld) [Entitic vol] 10.5 fL 6.2-12.0 [facility] Platelets (Bld) [#/Vol] 138 10*3/uL 150-450 [facility] Laboratory - Miscellaneous t estsOrdered By: Rios Downey on 03-22-2024 Service comment (Unsp spec) [Interp] TNP [facility] Comment on above: Test not performed No Panel InformationOrdered By: Rios Downey on 03-22-2024 Anti-Nuclear Antibody Screen Negative Negative [facility] Comment on above: Performed at: [facility] [address] [id number] Director: Nabeel Ruff PhD, Phone: [phone] Estimated GFR (MDRD) Amer 37 mL/min >60 [facility] Comment on above: GFR Calc Estimated GFR (MDRD) Non-Af Amer 31 mL/min >60 [facility] Comment on above: Non- GFR Calc Folate 26.90 ng/mL 3.1-55.4 [facility] Levetiracetam (Keppra) Level 55.2 ug/mL 10.0-40.0 [facility] Comment on above: Performed at: [facility] [address] [id number] Director: Nabeel Ruff PhD, Phone: [phone] at: - [facility] [id number] Director: Suzy Adames MD, Phone: [phone] Vitamin D 25-Hydroxy 46.6 ng/mL [facility] Comment on above: Vitamin D 25(OH) Sta tus Range Deficiency <20 ng/mL (50nmol/L) Insufficiency 20 - 30 ng/mL (50 - 75 nmol/L) Sufficiency 30 - 100 ng/mL (75 - 250 nmol/L) Toxicity >100 ng/mL (>250 nmol/L) VLDL Cholesterol 26 mg/dL 5-40 [facility] RBC Auto (Bld) [#/Vol]Ordere d By: Rios Downey on 03-22-2024 RBC (Bld) [#/Vol] 3.72 10*6/uL 4.6-6.2 [facility] Serum or plasma calcium aubree urement (mass/volume)Ordered By: Rios Downey on 03-22-2024 Calcium [Mass/Vol] 9.1 mg/dL 8.5-10.1 [facility] Serum or plasma creatinine m easurement (mass/volume)Ordered By: Rios Downey on 03-22-2024 Creatinine [Mass/Vol] 2.20 mg/dL 0.70-1.30 [facility] Comment on above: The validity of the calculated GFR & GFRAA in patients over 70 years has not been determined. Clinical correlation is essential. Serum or plasma thyroid stim ulating hormone (TSH) measurement (units/volume)Ordered By: Rios Downey on 03-22-2024 TSH Qn 6.21 uIU/mL 0.358-3.74 [facility] Serum or plasma transthyreti n measurement (mass/volume)Ordered By: Rios Downey on 03-22-2024 Prealbumin [Mass/Vol] 19.8 mg/dL 20.0-40.0 [facility] Serum or plasma urea nitroge n measurement (mass/volume)Ordered By: Rios Downey on 03-22-2024 Urea nitrogen [Mass/Vol] 40 mg/dL 7-18 [facility] Serum or plasma uric acid me asurement (mass/volume)Ordered By: Rios Downey on 03-22-2024 Urate [Mass/Vol] 5.5 mg/dL 3.5-7.2 [facility] Comment on above: The drugs N-Acetylcy steine and Metamizole may falsely depress this assay. Thin prep Papanicolaou smear with manual screeningOrdered By: Rios Downey on 03-22-2024 Thin prep Papanicolaou smear with manual screening 3.3 g/dL 3.2-5.0 [facility] Thin prep Papanicolaou smear with manual screening 17 U/L 15-37 [facility] Thin prep Papanicolaou smear with manual screening 6 5-15 [facility] Thin prep Papanicolaou smear with manual screening 0.59 ng/dL 0.76-1.46 [facility] Whole blood hemoglobin A1c/t otal hemoglobin ratio (mass fraction)Ordered By: Rios Downey on 03-22-2024 HbA1c (Bld) [Mass fraction] 5.2 % 3.8-5.6 [facility] Comment on above: Normal < 5.7 % Predi abetic 5.7 - 6.4 % Diabetic >or= 6.5 % Please note range changes. Absolute lymphocyte countOrd ered By: [facility] on 03-14-2024 Lymphocytes Auto (Unsp spec) [#/Vol] 1.98 10*3/uL 0.83-4.51 [facility] Automated lymphocyte count a s percentage of total leukocytesOrdered By: [facility] on 03-14-2024 Lymphocytes/100 WBC Auto (Unsp spec) 25.4 % 19-41 [facility] Basophil percentageOrdered B y: [facility]ve [facility] on 03-14-2024 Basophil percentage 2.4 mg/dL 2.5-4.9 [facility] Basophils/100 WBC (Bld) 0.6 % 0-1 [facility] Chloride [Moles/Vol] 112 mmol/L 98-107 [facility] Eosinophils/100 WBC (Bld) 3.9 % 0-5 [facility] Glucose [Mass/Vol] 120 mg/dL 74-106 [facility] Comment on above: Fasting Glucose resu lt from 100 to 125 mg/dL suggests IMPAIRED HOMEOSTASIS per A.D.A. criteria. Hemoglobin (Bld) [Mass/Vol] 11.2 g/dL 13.0-16.5 [facility] Monocytes/100 WBC (Bld) 6.9 % 0-10 [facility] Neutrophils (Bld) [#/Vol] 4.9 10*3/uL 2.0-7.7 [facility] Neutrophils/100 WBC (Bld) 62.9 % 47-70 [facility] Potassium [Moles/Vol] 4.3 mmol/L 3.5-5.1 [facility] Sodium [Moles/Vol] 140 mmol/L 136-145 [facility] WBC (Bld) [#/Vol] 7.8 10*3/uL 4.4-11.0 [facility] Determination of erythrocyte mean corpuscular volume (MCV)Ordered By: Pepe Au on 03-14-2024 MCV (RBC) [Entitic vol] 95.9 fL 80-94 [facility] Erythrocyte distribution wid th ratioOrdered By: [facility] nanticokesteve Au on 03-14-2024 Erythrocyte distribution width (RBC) [Ratio] 14.7 % 11.6-14.6 [facility] Erythrocyte distribution wid th standard deviationOrdered By: [facility] nanticokesteve Au on 03-14-2024 Erythrocyte distribution width (RBC) [Entitic vol] 51.0 fL 35.1-43.9 [facility] Hematocrit Auto (Bld) [Volum e fraction]Ordered By: Pepe Au on 03-14-2024 Hematocrit (Bld) [Volume fraction] 34.7 % 40-54 [facility] Immature granulocytes/100 WB C Auto (Bld)Ordered By: Pepe Au on 03-14-2024 Immature granulocytes/100 WBC (Bld) 0.300 % 0.0-0.9 [facility] Comment on above: IG% - Immature Granu locytes (promyelocytes, myelocytes and metamyelocytes) > 1% indicates that a LEFT SHIFT is Present. Iron measurement (mass/mass) Ordered By: Pepe Au on 03-14-2024 Iron (Unsp spec) [Mass/Mass] 66 ug/dL 65-175 [facility] Laboratory - Chemistry and C hemistry - challengeOrdered By: Pepe Au on 03-14-2024 CO2 [Moles/Vol] 27.0 mmol/L 21.0-32.0 [facility] Ferritin [Mass/Vol] 122 ng/mL 26-388 [facility] Urea nitrogen/Creatinine [Mass ratio] 22.7 mg/mg 10-20 [facility] Laboratory - Hematology and Cell countsOrdered By: Pepe Au on 03-14-2024 MCH (RBC) [Entitic mass] 30.9 pg 27.0-32.0 [facility] MCHC (RBC) [Mass/Vol] 32.3 g/dL 32-36 [facility] Nucleated RBC/100 WBC (Bld) [Ratio] 0 % 0-5 [facility] Platelet mean volume (Bld) [Entitic vol] 10.3 fL 6.2-12.0 [facility] Platelets (Bld) [#/Vol] 132 10*3/uL 150-450 [facility] No Panel InformationOrdered By: Pepe Au on 03-14-2024 Estimated GFR (MDRD) Amer 41 mL/min >60 [facility] Comment on above: GFR Calc Estimated GFR (MDRD) Non-Af Amer 34 mL/min >60 [facility] Comment on above: Non- GFR Calc Total Iron Binding Capacity 197 ug/dL 250-450 [facility] RBC Auto (Bld) [#/Vol]Ordere d By: Pepe Au on 03-14-2024 RBC (Bld) [#/Vol] 3.62 10*6/uL 4.6-6.2 [facility] Serum or plasma calcium aubree urement (mass/volume)Ordered By: Pepe Au on 03-14-2024 Calcium [Mass/Vol] 8.7 mg/dL 8.5-10.1 [facility] Serum or plasma creatinine m easurement (mass/volume)Ordered By: Pepe Au on 03-14-2024 Creatinine [Mass/Vol] 2.03 mg/dL 0.70-1.30 [facility] Comment on above: The validity of the calculated GFR & GFRAA in patients over 70 years has not been determined. Clinical correlation is essential. Serum or plasma iron saturat ion measurement (mass fraction)Ordered By: Pepe Au on 03-14-2024 Iron saturation [Mass fraction] 33.5 % 15.0-55.0 [facility] Serum or plasma urea nitroge n measurement (mass/volume)Ordered By: Pepe Au on 03-14-2024 Urea nitrogen [Mass/Vol] 46 mg/dL 7-18 [facility] Thin prep Papanicolaou smear with manual screeningOrdered By: Pepe Au on 03-14-2024 Thin prep Papanicolaou smear with manual screening 3.2 g/dL 3.2-5.0 [facility] Absolute lymphocyte countOrd ered By: Cesar Medina on 02-19-2024 Lymphocytes Auto (Unsp spec) [#/Vol] 1.41 10*3/uL 0.83-4.51 [facility] Automated lymphocyte count a s percentage of total leukocytesOrdered By: Cesar Medina on 02-19-2024 Lymphocytes/100 WBC Auto (Unsp spec) 23.0 % 19-41 [facility] Basophil percentageOrdered B y: Cesar Medina on 02-19-2024 Basophil percentage 0 SEEN /hpf 0-5 [facility] Ammonia (P) [Moles/Vol] 20.0 umol/L 11-32 [facility] Basophils/100 WBC (Bld) 0.3 % 0-1 [facility] Bilirubin [Mass/Vol] 0.40 mg/dL 0.20-1.00 [facility] Comment on above: For patients on eltr ombopag therapy, use of Dimension [place] TBIL is not recommended. Chloride [Moles/Vol] 117 mmol/L 98-107 [facility] Eosinophils/100 WBC (Bld) 4.2 % 0-5 [facility] Glucose [Mass/Vol] 101 mg/dL 74-106 [facility] Comment on above: Fasting Glucose resu lt from 100 to 125 mg/dL suggests IMPAIRED HOMEOSTASIS per A.D.A. criteria. Hemoglobin (Bld) [Mass/Vol] 11.9 g/dL 13.0-16.5 [facility] Monocytes/100 WBC (Bld) 5.9 % 0-10 [facility] Neutrophils (Bld) [#/Vol] 4.1 10*3/uL 2.0-7.7 [facility] Neutrophils/100 WBC (Bld) 66.4 % 47-70 [facility] Potassium [Moles/Vol] 4.0 mmol/L 3.5-5.1 [facility] Protein [Mass/Vol] 7.5 g/dL 6.4-8.2 [facility] Sodium [Moles/Vol] 142 mmol/L 136-145 [facility] WBC (Bld) [#/Vol] 6.1 10*3/uL 4.4-11.0 [facility] Bilirubin Test strip Ql (U)O rdered By: Cesar Medina on 02-19-2024 Bilirubin Ql (U) Negative Negative [facility] Determination of erythrocyte mean corpuscular volume (MCV)Ordered By: Cesar Medina on 02-19-2024 MCV (RBC) [Entitic vol] 93.7 fL 80-94 [facility] Erythrocyte distribution wid th ratioOrdered By: Cesar Medina on 02-19-2024 Erythrocyte distribution width (RBC) [Ratio] 14.4 % 11.6-14.6 [facility] Erythrocyte distribution wid th standard deviationOrdered By: Cesar Medina on 02-19-2024 Erythrocyte distribution width (RBC) [Entitic vol] 48.8 fL 35.1-43.9 [facility] Hematocrit Auto (Bld) [Volum e fraction]Ordered By: Cesar Medina on 02-19-2024 Hematocrit (Bld) [Volume fraction] 35.9 % 40-54 [facility] Immature granulocytes/100 WB C Auto (Bld)Ordered By: Cesar Medina on 02-19-2024 Immature granulocytes/100 WBC (Bld) 0.200 % 0.0-0.9 [facility] Comment on above: IG% - Immature Granu locytes (promyelocytes, myelocytes and metamyelocytes) > 1% indicates that a LEFT SHIFT is Present. Ketones Test strip Ql (U)Ord ered By: Cesar Medina on 02-19-2024 Ketones Ql (U) Negative Negative [facility] Laboratory - Chemistry and C hemistry - challengeOrdered By: Cesar Medina on 02-19-2024 Albumin/Globulin [Mass ratio] 0.7 {ratio} 0.9-2.4 [facility] ALP [Catalytic activity/Vol] 167 U/L 45-117 [facility] ALT [Catalytic activity/Vol] 15 U/L 16-61 [facility] CO2 [Moles/Vol] 17.0 mmol/L 21.0-32.0 [facility] Globulin (S) [Mass/Vol] 4.5 g/dL 2.2-4.2 [facility] Lipase [Catalytic activity/Vol] 22 U/L 13-75 [facility] Comment on above: Please note:LIPASE r evised reference range effective 23. New Lipase methodology. Expected to produce lower values than the previous assay method. NEW Reference Range: 13 - 75 U/L Natriuretic peptide B (Bld) [Mass/Vol] 271.7 pg/mL 0-100 [facility] Urea nitrogen/Creatinine [Mass ratio] 19.6 mg/mg 10-20 [facility] Laboratory - Hematology and Cell countsOrdered By: Cesar Medina on 02-19-2024 MCH (RBC) [Entitic mass] 31.1 pg 27.0-32.0 [facility] MCHC (RBC) [Mass/Vol] 33.1 g/dL 32-36 [facility] Nucleated RBC/100 WBC (Bld) [Ratio] 0 % 0-5 [facility] Platelet mean volume (Bld) [Entitic vol] 10.6 fL 6.2-12.0 [facility] Platelets (Bld) [#/Vol] 137 10*3/uL 150-450 [facility] Laboratory - Microbiology an d Antimicrobial susceptibilityOrdered By: Cesar Medina on 02-19-2024 SARS-CoV-2 (COVID-19) RNA ELIANE+probe Ql (Unsp spec) [facility] Mucus LM Ql (Urine sed)Order ed By: Cesar Medina on 02-19-2024 Mucus Ql (Urine sed) 0 SEEN /hpf [facility] Nitrite Test strip Ql (U)Ord ered By: Cesar Medina on 02-19-2024 Nitrite Ql (U) Negative Negative [facility] No Panel InformationOrdered By: Cesar Medina on 02-19-2024 Urine RBC 0 SEEN /hpf 0-5 [facility] Estimated Creatinine Clearance Calc 25.73 ml/min [facility] Estimated GFR (MDRD) Amer 32 mL/min >60 [facility] Comment on above: GFR Calc Estimated GFR (MDRD) Non-Af Amer 26 mL/min >60 [facility] Comment on above: Non- GFR Calc Troponin I High Sensitivity 63 pg/mL 3.0-78.0 [facility] Comment on above: Please Note: New Meghana t Units and Gender Specific Reference Ranges. For more information see Policy Stat Procedure [place] High Sensitivity Troponin (TNIH) and attachments. Protein Test strip Ql (U)Ord ered By: Cesar Medina on 02-19-2024 Protein Ql (U) 30 mg/dl Negative [facility] RBC Auto (Bld) [#/Vol]Ordere d By: Cesar Medina on 02-19-2024 RBC (Bld) [#/Vol] 3.83 10*6/uL 4.6-6.2 [facility] Serum or plasma calcium aubree urement (mass/volume)Ordered By: Cesar Medina on 02-19-2024 Calcium [Mass/Vol] 8.7 mg/dL 8.5-10.1 [facility] Serum or plasma creatinine m easurement (mass/volume)Ordered By: Cesar Medina on 02-19-2024 Creatinine [Mass/Vol] 2.50 mg/dL 0.70-1.30 [facility] Comment on above: The validity of the calculated GFR & GFRAA in patients over 70 years has not been determined. Clinical correlation is essential. Serum or plasma urea nitroge n measurement (mass/volume)Ordered By: Cesar Medina on 02-19-2024 Urea nitrogen [Mass/Vol] 49 mg/dL 7-18 [facility] Squamous epithelial cells de tection in urine sediment by light microscopyOrdered By: Cesar Medina on 02-19-2024 Epithelial cells.squamous LM Ql (Urine sed) 0 SEEN /hpf 0-5 [facility] Thin prep Papanicolaou smear with manual screeningOrdered By: Cesar Medina on 02-19-2024 Thin prep Papanicolaou smear with manual screening 3.0 g/dL 3.2-5.0 [facility] Thin prep Papanicolaou smear with manual screening 20 U/L 15-37 [facility] Thin prep Papanicolaou smear with manual screening 8 5-15 [facility] Urine blood detectionOrdered By: Cesar Medina on 02-19-2024 RBC Ql (U) 10 /ul Negative [facility] Urine clarityOrdered By: Jodie Medina on 02-19-2024 Clarity (U) Clear Clear [facility] Urine color determinationOrd ered By: Cesar Medina on 02-19-2024 Color (U) Yellow Yellow [facility] Urine glucose detectionOrder ed By: Cesar Medina on 02-19-2024 Glucose Ql (U) Normal mg/dl Normal [facility] Urine leukocyte esterase det ection by dipstickOrdered By: Cesar Medina on 02-19-2024 Leukocyte esterase Test strip Ql (U) Negative Negative [facility] Urine pHOrdered By: Cesar deras on 02-19-2024 pH (U) 6.0 [pH] 5.0 - 8.0 [facility] Urine sediment bacteria coun t by microscopy (number/high power field)Ordered By: Cesar Medina on 02-19-2024 Bacteria LM.HPF (Urine sed) [#/Area] 0 /[HPF] None Seen [facility] Urine specific gravity measu rementOrdered By: Cesar Medina on 02-19-2024 Specific gravity (U) [Rel density] 1.015 1.002-1.030 [facility] Urine urobilinogen measureme ntOrdered By: Cesar Medina on 02-19-2024 Urobilinogen Ql (U) Normal mg/dl Normal [facility] Basophil percentageOrdered B y: Angélica Palomo on 02-16-2024 Basophil percentage 0 SEEN /hpf 0-5 [facility] Bilirubin Test strip Ql (U)O rdered By: Angélica Palomo on 02-16-2024 Bilirubin Ql (U) Negative Negative [facility] Hyaline casts LM.LPF (Urine sed) [#/Area]Ordered By: Angélica Palomo on 02-16-2024 Hyaline casts (Urine sed) [#/Area] 0 /[LPF] 0-5 [facility] Ketones Test strip Ql (U)Ord ered By: Angélica Palomo on 02-16-2024 Ketones Ql (U) Negative Negative [facility] Mucus LM Ql (Urine sed)Order ed By: Angélica Palomo on 02-16-2024 Mucus Ql (Urine sed) 0 SEEN /hpf [facility] Nitrite Test strip Ql (U)Ord ered By: Angélica Palomo on 02-16-2024 Nitrite Ql (U) Negative Negative [facility] No Panel InformationOrdered By: Angélica Palomo on 02-16-2024 Urine RBC 0 SEEN /hpf 0-5 [facility] Protein Test strip Ql (U)Ord ered By: Angélica Palomo on 02-16-2024 Protein Ql (U) 100 mg/dl Negative [facility] Squamous epithelial cells de tection in urine sediment by light microscopyOrdered By: Angélica Palomo on 02-16-2024 Epithelial cells.squamous LM Ql (Urine sed) 0-5 SEEN /hpf 0-5 [facility] Urine blood detectionOrdered By: Angélica Palomo on 02-16-2024 RBC Ql (U) 10 /ul Negative [facility] Urine clarityOrdered By: Dee Palomo on 02-16-2024 Clarity (U) Clear Clear [facility] Urine coarse granular cast d etectionOrdered By: Angélica Palomo on 02-16-2024 Coarse Granular Casts LM Ql (Urine sed) 0-5 SEEN /lpf 0-5 /lpf [facility] Urine color determinationOrd ered By: Angélica Palomo on 02-16-2024 Color (U) Yellow Yellow [facility] Urine glucose detectionOrder ed By: Angélica Palomo on 02-16-2024 Glucose Ql (U) Normal mg/dl Normal [facility] Urine leukocyte esterase det ection by dipstickOrdered By: Angélica Palomo on 02-16-2024 Leukocyte esterase Test strip Ql (U) Negative Negative [facility] Urine pHOrdered By: Angélica sher on 02-16-2024 pH (U) 6.0 [pH] 5.0 - 8.0 [facility] Urine sediment bacteria coun t by microscopy (number/high power field)Ordered By: Angélica Palomo on 02-16-2024 Bacteria LM.HPF (Urine sed) [#/Area] RARE /hpf None Seen [facility] Urine specific gravity measu rementOrdered By: Angélica Palomo on 02-16-2024 Specific gravity (U) [Rel density] 1.020 1.002-1.030 [facility] Urine urobilinogen measureme ntOrdered By: Angélica Palomo on 02-16-2024 Urobilinogen Ql (U) Normal mg/dl Normal [facility] Absolute lymphocyte countOrd ered By: Angélica Palomo on 02-15-2024 Lymphocytes Auto (Unsp spec) [#/Vol] 1.62 10*3/uL 0.83-4.51 [facility] Absolute lymphocyte countOrd ered By: Zandrajack Au on 02-15-2024 Lymphocytes Auto (Unsp spec) [#/Vol] 1.93 10*3/uL 0.83-4.51 [facility] Automated lymphocyte count a s percentage of total leukocytesOrdered By: Angélica Palomo on 02-15-2024 Lymphocytes/100 WBC Auto (Unsp spec) 21.2 % 19- [facility] Automated lymphocyte count a s percentage of total leukocytesOrdered By: Pepe Angely on 02-15-2024 Lymphocytes/100 WBC Auto (Unsp spec) 21.1 % - [facility] Basophil percentageOrdered B y: [place] Au on 02-15-2024 Basophils/100 WBC (Bld) 0.3 % 0-1 [facility] Hemoglobin (Bld) [Mass/Vol] 12.9 g/dL 13.0-16.5 [facility] Basophil percentage 3.1 mg/dL 2.5-4.9 [facility] Chloride [Moles/Vol] 115 mmol/L 98-107 [facility] Eosinophils/100 WBC (Bld) 1.2 % 0-5 [facility] Glucose [Mass/Vol] 112 mg/dL 74-106 [facility] Comment on above: Fasting Glucose resu lt from 100 to 125 mg/dL suggests IMPAIRED HOMEOSTASIS per A.D.A. criteria. Monocytes/100 WBC (Bld) 8.2 % 0-10 [facility] Neutrophils (Bld) [#/Vol] 6.3 10*3/uL 2.0-7.7 [facility] Neutrophils/100 WBC (Bld) 68.9 % 47-70 [facility] Potassium [Moles/Vol] 4.2 mmol/L 3.5-5.1 [facility] Sodium [Moles/Vol] 140 mmol/L 136-145 [facility] WBC (Bld) [#/Vol] 9.2 10*3/uL 4.4-11.0 [facility] Basophil percentageOrdered B y: Angélica Palomo on 02-15-2024 Bilirubin [Mass/Vol] 0.40 mg/dL 0.20-1.00 [facility] Comment on above: For patients on eltr ombopag therapy, use of Dimension [place] TBIL is not recommended. Chloride [Moles/Vol] 116 mmol/L 98-107 [facility] Eosinophils/100 WBC (Bld) 2.2 % 0-5 [facility] Glucose [Mass/Vol] 116 mg/dL 74-106 [facility] Comment on above: Fasting Glucose resu lt from 100 to 125 mg/dL suggests IMPAIRED HOMEOSTASIS per A.D.A. criteria. Monocytes/100 WBC (Bld) 8.6 % 0-10 [facility] Neutrophils (Bld) [#/Vol] 5.1 10*3/uL 2.0-7.7 [facility] Neutrophils/100 WBC (Bld) 67.3 % 47-70 [facility] Potassium [Moles/Vol] 4.1 mmol/L 3.5-5.1 [facility] Protein [Mass/Vol] 7.7 g/dL 6.4-8.2 [facility] Sodium [Moles/Vol] 142 mmol/L 136-145 [facility] WBC (Bld) [#/Vol] 7.6 10*3/uL 4.4-11.0 [facility] Determination of erythrocyte mean corpuscular volume (MCV)Ordered By: Angélica Palomo on 02-15-2024 MCV (RBC) [Entitic vol] 97.3 fL 80-94 [facility] Determination of erythrocyte mean corpuscular volume (MCV)Ordered By: Pepe Au on 02-15-2024 MCV (RBC) [Entitic vol] 96.7 fL 80-94 [facility] Erythrocyte distribution wid th ratioOrdered By: Angélica Palomo on 02-15-2024 Erythrocyte distribution width (RBC) [Ratio] 14.0 % 11.6-14.6 [facility] Erythrocyte distribution wid th ratioOrdered By: Pepe Au on 02-15-2024 Erythrocyte distribution width (RBC) [Ratio] 14.1 % 11.6-14.6 [facility] Erythrocyte distribution wid th standard deviationOrdered By: Angélica Palomo on 02-15-2024 Erythrocyte distribution width (RBC) [Entitic vol] 50.0 fL 35.1-43.9 [facility] Erythrocyte distribution wid th standard deviationOrdered By: Pepe Au on 02-15-2024 Erythrocyte distribution width (RBC) [Entitic vol] 50.3 fL 35.1-43.9 [facility] Hematocrit Auto (Bld) [Volum e fraction]Ordered By: Angélica Palomo on 02-15-2024 Hematocrit (Bld) [Volume fraction] 40.3 % 40-54 [facility] Hematocrit Auto (Bld) [Volum e fraction]Ordered By: Pepe Au on 02-15-2024 Hematocrit (Bld) [Volume fraction] 40.8 % 40-54 [facility] Immature granulocytes/100 WB C Auto (Bld)Ordered By: Angélica Palomo on 02-15-2024 Immature granulocytes/100 WBC (Bld) 0.400 % 0.0-0.9 [facility] Comment on above: IG% - Immature Granu locytes (promyelocytes, myelocytes and metamyelocytes) > 1% indicates that a LEFT SHIFT is Present. Immature granulocytes/100 WB C Auto (Bld)Ordered By: Pepe Au on 02-15-2024 Immature granulocytes/100 WBC (Bld) 0.300 % 0.0-0.9 [facility] Comment on above: IG% - Immature Granu locytes (promyelocytes, myelocytes and metamyelocytes) > 1% indicates that a LEFT SHIFT is Present. Iron measurement (mass/mass) Ordered By: Pepe Au on 02-15-2024 Iron (Unsp spec) [Mass/Mass] 31 ug/dL 65-175 [facility] Laboratory - Chemistry and C hemistry - challengeOrdered By: Angélica Palomo on 02-15-2024 Albumin/Globulin [Mass ratio] 0.8 {ratio} 0.9-2.4 [facility] ALP [Catalytic activity/Vol] 123 U/L 45-117 [facility] ALT [Catalytic activity/Vol] 12 U/L 16-61 [facility] Globulin (S) [Mass/Vol] 4.4 g/dL 2.2-4.2 [facility] Lipase [Catalytic activity/Vol] 20 U/L 13-75 [facility] Comment on above: Please note:LIPASE r evised reference range effective 23. New Lipase methodology. Expected to produce lower values than the previous assay method. NEW Reference Range: 13 - 75 U/L Urea nitrogen/Creatinine [Mass ratio] 19.1 mg/mg 09-16 [facility] Laboratory - Chemistry and C hemistry - challengeOrdered By: Pepe Au on 02-15-2024 CO2 [Moles/Vol] 19.0 mmol/L 21.0-32.0 [facility] Ferritin [Mass/Vol] 141 ng/mL 26-388 [facility] Urea nitrogen/Creatinine [Mass ratio] 20.6 mg/mg 09-16 [facility] Laboratory - Hematology and Cell countsOrdered By: Angélica Paloom on 02-15-2024 MCH (RBC) [Entitic mass] 31.2 pg 27.0-32.0 [facility] MCHC (RBC) [Mass/Vol] 32.0 g/dL 32- [facility] Platelet mean volume (Bld) [Entitic vol] 10.7 fL 6.2-12.0 [facility] Platelets (Bld) [#/Vol] 111 10*3/uL 150-450 [facility] Laboratory - Hematology and Cell countsOrdered By: Pepe uA on 02-15-2024 Nucleated RBC/100 WBC (Bld) [Ratio] 0 % 0-5 [facility] MCH (RBC) [Entitic mass] 30.6 pg 27.0-32.0 [facility] MCHC (RBC) [Mass/Vol] 31.6 g/dL - [facility] Platelet mean volume (Bld) [Entitic vol] 10.0 fL 6.2-12.0 [facility] Platelets (Bld) [#/Vol] 118 10*3/uL 150-450 [facility] No Panel InformationOrdered By: Angélica Palomo on 02-15-2024 Estimated Creatinine Clearance Calc 25.89 ml/min [facility] Estimated GFR (MDRD) Amer 33 mL/min >60 [facility] Comment on above: GFR Calc Estimated GFR (MDRD) Non-Af Amer 27 mL/min >60 [facility] Comment on above: Non- GFR Calc No Panel InformationOrdered By: Pepe Au on 02-15-2024 Estimated GFR (MDRD) Amer 32 mL/min >60 [facility] Comment on above: GFR Calc Estimated GFR (MDRD) Non-Af Amer 26 mL/min >60 [facility] Comment on above: Non- GFR Calc Total Iron Binding Capacity 264 ug/dL 250-450 [facility] RBC Auto (Bld) [#/Vol]Ordere d By: Angélica Palomo on 02-15-2024 RBC (Bld) [#/Vol] 4.14 10*6/uL 4.6-6.2 [facility] RBC Auto (Bld) [#/Vol]Ordere d By: Pepe Au on 02-15-2024 RBC (Bld) [#/Vol] 4.22 10*6/uL 4.6-6.2 [facility] Serum or plasma calcium aubree urement (mass/volume)Ordered By: Angélica Palomo on 02-15-2024 Calcium [Mass/Vol] 9.5 mg/dL 8.5-10.1 [facility] Serum or plasma calcium aubree urement (mass/volume)Ordered By: Pepe Au on 02-15-2024 Calcium [Mass/Vol] 9.4 mg/dL 8.5-10.1 [facility] Serum or plasma creatinine m easurement (mass/volume)Ordered By: Angélica Palomo on 02-15-2024 Creatinine [Mass/Vol] 2.46 mg/dL 0.70-1.30 [facility] Comment on above: The validity of the calculated GFR & GFRAA in patients over 70 years has not been determined. Clinical correlation is essential. Serum or plasma creatinine m easurement (mass/volume)Ordered By: Pepe Au on 02-15-2024 Creatinine [Mass/Vol] 2.53 mg/dL 0.70-1.30 [facility] Comment on above: The validity of the calculated GFR & GFRAA in patients over 70 years has not been determined. Clinical correlation is essential. Serum or plasma iron saturat ion measurement (mass fraction)Ordered By: Pepe Au on 02-15-2024 Iron saturation [Mass fraction] 11.7 % 15.0-55.0 [facility] Serum or plasma urea nitroge n measurement (mass/volume)Ordered By: Angélica Palomo on 02-15-2024 Urea nitrogen [Mass/Vol] 47 mg/dL 06-14 [facility] Serum or plasma urea nitroge n measurement (mass/volume)Ordered By: Pepe Au on 02-15-2024 Urea nitrogen [Mass/Vol] 52 mg/dL 06-14 [facility] Thin prep Papanicolaou smear with manual screeningOrdered By: Angélica Palomo on 02-15-2024 Thin prep Papanicolaou smear with manual screening 3.3 g/dL 3.2-5.0 [facility] Thin prep Papanicolaou smear with manual screening 18 U/L 15 [facility] Thin prep Papanicolaou smear with manual screening 7 5-15 [facility] Thin prep Papanicolaou smear with manual screeningOrdered By: Pepe Au on 02-15-2024 Thin prep Papanicolaou smear with manual screening 3.7 g/dL 3.2-5.0 [facility] Absolute lymphocyte countOrd ered By: Pepe Au on 01-18-2024 Lymphocytes Auto (Unsp spec) [#/Vol] 1.86 10*3/uL 0.83-4.51 [facility] Automated lymphocyte count a s percentage of total leukocytesOrdered By: Pepe Au on 01-18-2024 Lymphocytes/100 WBC Auto (Unsp spec) 25.9 % 19-41 [facility] Basophil percentageOrdered B y: Pepe Au on 01-18-2024 Basophil percentage 3.0 mg/dL 2.5-4.9 [facility] Basophils/100 WBC (Bld) 0.6 % 0-1 [facility] Chloride [Moles/Vol] 111 mmol/L 98-107 [facility] Eosinophils/100 WBC (Bld) 4.0 % 0-5 [facility] Glucose [Mass/Vol] 160 mg/dL 74-106 [facility] Comment on above: Fasting Glucose resu lt greater than or equal to 126 mg/dL suggests DIABETES MELLITUS per A.D.A. criteria. Hemoglobin (Bld) [Mass/Vol] 11.7 g/dL 13.0-16.5 [facility] Monocytes/100 WBC (Bld) 7.3 % 0-10 [facility] Neutrophils (Bld) [#/Vol] 4.4 10*3/uL 2.0-7.7 [facility] Neutrophils/100 WBC (Bld) 61.9 % 47-70 [facility] Potassium [Moles/Vol] 4.7 mmol/L 3.5-5.1 [facility] Sodium [Moles/Vol] 139 mmol/L 136-145 [facility] WBC (Bld) [#/Vol] 7.2 10*3/uL 4.4-11.0 [facility] Determination of erythrocyte mean corpuscular volume (MCV)Ordered By: Pepe Au on 01-18-2024 MCV (RBC) [Entitic vol] 97.4 fL 80-94 [facility] Erythrocyte distribution wid th ratioOrdered By: Pepe Au on 01-18-2024 Erythrocyte distribution width (RBC) [Ratio] 13.7 % 11.6-14.6 [facility] Erythrocyte distribution wid th standard deviationOrdered By: Pepe uA on 01-18-2024 Erythrocyte distribution width (RBC) [Entitic vol] 48.4 fL 35.1-43.9 [facility] Hematocrit Auto (Bld) [Volum e fraction]Ordered By: Pepe Au on 01-18-2024 Hematocrit (Bld) [Volume fraction] 37.2 % 40-54 [facility] Immature granulocytes/100 WB C Auto (Bld)Ordered By: Pepe Au on 01-18-2024 Immature granulocytes/100 WBC (Bld) 0.300 % 0.0-0.9 [facility] Comment on above: IG% - Immature Granu locytes (promyelocytes, myelocytes and metamyelocytes) > 1% indicates that a LEFT SHIFT is Present. Iron measurement (mass/mass) Ordered By: Pepe Au on 01-18-2024 Iron (Unsp spec) [Mass/Mass] 54 ug/dL 65-175 [facility] Laboratory - Chemistry and C hemistry - challengeOrdered By: Pepe Au on 01-18-2024 CO2 [Moles/Vol] 26.0 mmol/L 21.0-32.0 [facility] Ferritin [Mass/Vol] 103 ng/mL 26-388 [facility] Urea nitrogen/Creatinine [Mass ratio] 18.2 mg/mg 10-20 [facility] Laboratory - Hematology and Cell countsOrdered By: Pepe Au on 01-18-2024 MCH (RBC) [Entitic mass] 30.6 pg 27.0-32.0 [facility] MCHC (RBC) [Mass/Vol] 31.5 g/dL 32-36 [facility] Nucleated RBC/100 WBC (Bld) [Ratio] 0 % 0-5 [facility] Platelet mean volume (Bld) [Entitic vol] 10.2 fL 6.2-12.0 [facility] Platelets (Bld) [#/Vol] 131 10*3/uL 150-450 [facility] No Panel InformationOrdered By: Pepe Au on 01-18-2024 Estimated GFR (MDRD) Amer 33 mL/min >60 [facility] Comment on above: GFR Calc Estimated GFR (MDRD) Non-Af Amer 27 mL/min >60 [facility] Comment on above: Non- GFR Calc Parathyroid Hormone (Intact) 20.1 pg/mL 18.4-80.1 [facility] Total Iron Binding Capacity 273 ug/dL 250-450 [facility] RBC Auto (Bld) [#/Vol]Ordere d By: Pepe Au on 01-18-2024 RBC (Bld) [#/Vol] 3.82 10*6/uL 4.6-6.2 [facility] Serum or plasma calcium aubree urement (mass/volume)Ordered By: Pepe Au on 01-18-2024 Calcium [Mass/Vol] 9.8 mg/dL 8.5-10.1 [facility] Serum or plasma creatinine m easurement (mass/volume)Ordered By: Pepe Au on 01-18-2024 Creatinine [Mass/Vol] 2.42 mg/dL 0.70-1.30 [facility] Comment on above: The validity of the calculated GFR & GFRAA in patients over 70 years has not been determined. Clinical correlation is essential. Serum or plasma iron saturat ion measurement (mass fraction)Ordered By: [facility] Iron saturation [Mass fraction] 19.8 % 15.0-55.0 [facility] Serum or plasma urea nitroge n measurement (mass/volume)Ordered By: [facility] Angely on 01-18-2024 Urea nitrogen [Mass/Vol] 44 mg/dL 7-18 [facility] Thin prep Papanicolaou smear with manual screeningOrdered By: [facility] Angely on 01-18-2024 Thin prep Papanicolaou smear with manual screening 3.2 g/dL 3.2-5.0 [facility] Absolute lymphocyte countOrd ered By: [facility] Angely on 12-21-2023 Lymphocytes Auto (Unsp spec) [#/Vol] 2.33 10*3/uL 0.83-4.51 [facility] Automated lymphocyte count a s percentage of total leukocytesOrdered By: [facility] Au on 12-21-2023 Lymphocytes/100 WBC Auto (Unsp spec) 36.6 % 19-41 [facility] Basophil percentageOrdered B y: [facility] Basophil percentage 3.7 mg/dL 2.5-4.9 [facility] Basophils/100 WBC (Bld) 0.3 % 0-1 [facility] Chloride [Moles/Vol] 110 mmol/L 98-107 [facility] Eosinophils/100 WBC (Bld) 2.0 % 0-5 [facility] Glucose [Mass/Vol] 89 mg/dL 74-106 [facility] Hemoglobin (Bld) [Mass/Vol] 11.0 g/dL 13.0-16.5 [facility] [facility] Monocytes/100 WBC (Bld) 6.1 % 0-10 [facility] Neutrophils (Bld) [#/Vol] 3.5 10*3/uL 2.0-7.7 [facility] Neutrophils/100 WBC (Bld) 54.8 % 47-70 [facility] Potassium [Moles/Vol] 4.4 mmol/L 3.5-5.1 [facility] Sodium [Moles/Vol] 137 mmol/L 136-145 [facility] WBC (Bld) [#/Vol] 6.4 10*3/uL 4.4-11.0 [facility] Determination of erythrocyte mean corpuscular volume (MCV)Ordered By: Pepe Au on 12-21-2023 MCV (RBC) [Entitic vol] 98.1 fL 80-94 [facility] Erythrocyte distribution wid th ratioOrdered By: Pepe Au on 12-21-2023 Erythrocyte distribution width (RBC) [Ratio] 14.6 % 11.6-14.6 [facility] Erythrocyte distribution wid th standard deviationOrdered By: [facility] Au on 12-21-2023 Erythrocyte distribution width (RBC) [Entitic vol] 52.2 fL 35.1-43.9 [facility] Hematocrit Auto (Bld) [Volum e fraction]Ordered By: Pepe Au on 12-21-2023 Hematocrit (Bld) [Volume fraction] 35.8 % 40-54 [facility] Immature granulocytes/100 WB C Auto (Bld)Ordered By: Pepe Au on 12-21-2023 Immature granulocytes/100 WBC (Bld) 0.200 % 0.0-0.9 [facility] Comment on above: IG% - Immature Granu locytes (promyelocytes, myelocytes and metamyelocytes) > 1% indicates that a LEFT SHIFT is Present. Iron measurement (mass/mass) Ordered By: Pepe Au on 12-21-2023 Iron (Unsp spec) [Mass/Mass] 70 ug/dL 65-175 [facility] Laboratory - Chemistry and C hemistry - challengeOrdered By: Pepe Au on 12-21-2023 CO2 [Moles/Vol] 24.0 mmol/L 21.0-32.0 [facility] Ferritin [Mass/Vol] 125 ng/mL 26-388 [facility] Urea nitrogen/Creatinine [Mass ratio] 18.7 mg/mg 10-20 [facility] Laboratory - Hematology and Cell countsOrdered By: Pepe Au on 12-21-2023 MCH (RBC) [Entitic mass] 30.1 pg 27.0-32.0 [facility] MCHC (RBC) [Mass/Vol] 30.7 g/dL 32-36 [facility] Nucleated RBC/100 WBC (Bld) [Ratio] 0 % 0-5 [facility] Platelets (Bld) [#/Vol] 122 10*3/uL 150-450 [facility] No Panel InformationOrdered By: Pepe Au on 12-21-2023 Estimated GFR (MDRD) Amer 31 mL/min >60 [facility] Comment on above: GFR Calc Estimated GFR (MDRD) Non-Af Amer 26 mL/min >60 [facility] Comment on above: Non- GFR Calc Total Iron Binding Capacity 251 ug/dL 250-450 [facility] Platelet mean volume Evan-Ec ker (Bld) [Entitic vol]Ordered By: Pepe Au on 12-21-2023 Platelet mean volume (Bld) [Entitic vol] 10.3 fL 6.2-12.0 [facility] RBC Auto (Bld) [#/Vol]Ordere d By: Pepe Au on 12-21-2023 RBC (Bld) [#/Vol] 3.65 10*6/uL 4.6-6.2 [facility] Serum or plasma calcium aubree urement (mass/volume)Ordered By: Pepe Au on 12-21-2023 Calcium [Mass/Vol] 9.8 mg/dL 8.5-10.1 [facility] Serum or plasma creatinine m easurement (mass/volume)Ordered By: Pepe Au on 12-21-2023 Creatinine [Mass/Vol] 2.57 mg/dL 0.70-1.30 [facility] Comment on above: The validity of the calculated GFR & GFRAA in patients over 70 years has not been determined. Clinical correlation is essential. Serum or plasma iron saturat ion measurement (mass fraction)Ordered By: Pepe Au on 12-21-2023 Iron saturation [Mass fraction] 27.9 % 15.0-55.0 [facility] Serum or plasma urea nitroge n measurement (mass/volume)Ordered By: Pepe Au on 12-21-2023 Urea nitrogen [Mass/Vol] 48 mg/dL 7-18 [facility] Thin prep Papanicolaou smear with manual screeningOrdered By: Pepe Au on 12-21-2023 Thin prep Papanicolaou smear with manual screening 3.1 g/dL 3.2-5.0 [facility] Absolute lymphocyte countOrd ered By: Pepe Au on 12-02-2023 Lymphocytes Auto (Unsp spec) [#/Vol] 1.49 10*3/uL 0.83-4.51 [facility] Basophil percentageOrdered B y: Pepe Au on 12-02-2023 Basophil percentage 3.3 mg/dL 2.5-4.9 [facility] Basophils/100 WBC (Bld) 0.3 % 0-1 [facility] Chloride [Moles/Vol] 111 mmol/L 98-107 [facility] Eosinophils/100 WBC (Bld) 0.9 % 0-5 [facility] Glucose [Mass/Vol] 131 mg/dL 74-106 [facility] Comment on above: Fasting Glucose resu lt greater than or equal to 126 mg/dL suggests DIABETES MELLITUS per A.D.A. criteria. Neutrophils (Bld) [#/Vol] 6.6 10*3/uL 2.0-7.7 [facility] Neutrophils/100 WBC (Bld) 75.9 % 47-70 [facility] Potassium [Moles/Vol] 4.7 mmol/L 3.5-5.1 [facility] Sodium [Moles/Vol] 142 mmol/L 136-145 [facility] WBC (Bld) [#/Vol] 8.7 10*3/uL 4.4-11.0 [facility] Blood erythrocytes count (nu mber/volume)Ordered By: Pepe Au on 12-02-2023 RBC (Bld) [#/Vol] 3.48 10*6/uL 4.6-6.2 [facility] Blood hemoglobin measurement (mass/volume)Ordered By: Pepe Au on 12-02-2023 Hemoglobin (Bld) [Mass/Vol] 10.9 g/dL 13.0-16.5 [facility] Blood lymphocytes/100 leukoc ytesOrdered By: Pepe Au on 12-02-2023 Lymphocytes/100 WBC (Bld) 17.1 % 19-41 [facility] Blood monocytes/100 leukocyt esOrdered By: Pepe Au on 12-02-2023 Monocytes/100 WBC (Bld) 5.5 % 0-10 [facility] Blood platelet mean volumeOr dered By: Pepe Au on 12-02-2023 Platelet mean volume (Bld) [Entitic vol] 10.8 fL 6.2-12.0 [facility] Determination of erythrocyte mean corpuscular volume (MCV)Ordered By: Pepe Au on 12-02-2023 MCV (RBC) [Entitic vol] 101.1 fL 80-94 [facility] Hematocrit Auto (Bld) [Volum e fraction]Ordered By: Pepe Au on 12-02-2023 Hematocrit (Bld) [Volume fraction] 35.2 % 40-54 [facility] Iron measurement (mass/mass) Ordered By: [facility] Au on 12-02-2023 Iron (Unsp spec) [Mass/Mass] 70 ug/dL 65-175 [facility] Laboratory - Chemistry and C hemistry - challengeOrdered By: [facility] Au on 12-02-2023 CO2 [Moles/Vol] 26.0 mmol/L 21.0-32.0 [facility] Urea nitrogen/Creatinine [Mass ratio] 17.5 mg/mg 10-20 [facility] Laboratory - Hematology and Cell countsOrdered By: Pepe Au on 12-02-2023 Erythrocyte distribution width (RBC) [Entitic vol] 58.1 fL 35.1-43.9 [facility] Erythrocyte distribution width (RBC) [Ratio] 15.8 % 11.6-14.6 [facility] Immature granulocytes/100 WBC (Bld) 0.300 % 0.0-0.9 [facility] Comment on above: IG% - Immature Granu locytes (promyelocytes, myelocytes and metamyelocytes) > 1% indicates that a LEFT SHIFT is Present. MCH (RBC) [Entitic mass] 31.3 pg 27.0-32.0 [facility] Nucleated RBC/100 WBC (Bld) [Ratio] 0 % 0-5 [facility] MCHC Auto (RBC) [Mass/Vol]Or dered By: Pepe Au on 12-02-2023 MCHC (RBC) [Mass/Vol] 31.0 g/dL 32-36 [facility] No Panel InformationOrdered By: Pepe Au on 12-02-2023 Estimated GFR (MDRD) Amer 33 mL/min >60 [facility] Comment on above: GFR Calc Estimated GFR (MDRD) Non-Af Amer 27 mL/min >60 [facility] Comment on above: Non- GFR Calc Parathyroid Hormone (Intact) 26.3 pg/mL 18.4-80.1 [facility] Total Iron Binding Capacity 233 ug/dL 250-450 [facility] Platelets bldOrdered By: Zandra Au on 12-02-2023 Platelets (Bld) [#/Vol] 162 10*3/uL 150-450 [facility] Serum or plasma albumin aubree urement (mass/volume)Ordered By: Pepe Au on 12-02-2023 Albumin [Mass/Vol] 3.1 g/dL 3.2-5.0 [facility] Serum or plasma calcium aubree urement (mass/volume)Ordered By: Pepe Au on 12-02-2023 Calcium [Mass/Vol] 9.0 mg/dL 8.5-10.1 [facility] Serum or plasma creatinine m easurement (mass/volume)Ordered By: Pepe Au on 12-02-2023 Creatinine [Mass/Vol] 2.46 mg/dL 0.70-1.30 [facility] Comment on above: The validity of the calculated GFR & GFRAA in patients over 70 years has not been determined. Clinical correlation is essential. Serum or plasma ferritin laurie surement (mass/volume)Ordered By: Pepe Au on 12-02-2023 Ferritin [Mass/Vol] 118 ng/mL 26-388 [facility] Serum or plasma urea nitroge n measurement (mass/volume)Ordered By: Pepe Au on 12-02-2023 Urea nitrogen [Mass/Vol] 43 mg/dL 7-18 [facility] Serum or plasma uric acid me asurement (mass/volume)Ordered By: Pepe Au on 12-02-2023 Urate [Mass/Vol] 5.5 mg/dL 3.5-7.2 [facility] Comment on above: The drugs N-Acetylcy steine and Metamizole may falsely depress this assay. Absolute lymphocyte countOrd ered By: Pepe Au on 11-23-2023 Lymphocytes Auto (Unsp spec) [#/Vol] 1.50 10*3/uL 0.83-4.51 [facility] Basophil percentageOrdered B y: Pepe Au on 11-23-2023 Basophil percentage 195 mg/dL 74-106 [facility] Basophil percentage 3.1 mg/dL 2.5-4.9 [facility] Basophil percentage 139 mmol/L 136-145 [facility] Basophil percentage 4.4 mmol/L 3.5-5.1 [facility] Basophil percentage 110 mmol/L 98-107 [facility] Basophils (Bld) [#/Vol] 7.4 10*3/uL 4.4-11.0 [facility] Basophils (Bld) [#/Vol] 5.1 10*3/uL 2.0-7.7 [facility] Basophils/100 WBC (Bld) 68.1 % 47-70 [facility] Basophils/100 WBC (Bld) 4.0 % 0-5 [facility] Basophils/100 WBC (Bld) 0.5 % 0-1 [facility] Chloride [Moles/Vol] 110 mmol/L 98-107 [facility] Eosinophils/100 WBC (Bld) 4.0 % 0-5 [facility] Glucose [Mass/Vol] 195 mg/dL 74-106 [facility] Comment on above: Fasting Glucose resu lt greater than or equal to 126 mg/dL suggests DIABETES MELLITUS per A.D.A. criteria. Neutrophils (Bld) [#/Vol] 5.1 10*3/uL 2.0-7.7 [facility] Neutrophils/100 WBC (Bld) 68.1 % 47-70 [facility] Potassium [Moles/Vol] 4.4 mmol/L 3.5-5.1 [facility] Sodium [Moles/Vol] 139 mmol/L 136-145 [facility] WBC (Bld) [#/Vol] 7.4 10*3/uL 4.4-11.0 [facility] Blood erythrocytes count (nu mber/volume)Ordered By: Pepe Au on 11-23-2023 RBC (Bld) [#/Vol] 3.23 10*6/uL 4.6-6.2 [facility] Blood hemoglobin measurement (mass/volume)Ordered By: Pepe Au on 11-23-2023 Hemoglobin (Bld) [Mass/Vol] 10.2 g/dL 13.0-16.5 [facility] Blood lymphocytes/100 leukoc ytesOrdered By: Pepe Au on 11-23-2023 Lymphocytes/100 WBC (Bld) 20.2 % 19-41 [facility] Blood monocytes/100 leukocyt esOrdered By: Pepe Au on 11-23-2023 Monocytes/100 WBC (Bld) 6.7 % 0-10 [facility] Blood platelet mean volumeOr dered By: Pepe Au on 11-23-2023 Platelet mean volume (Bld) [Entitic vol] 10.2 fL 6.2-12.0 [facility] Determination of erythrocyte mean corpuscular volume (MCV)Ordered By: Pepe Au on 11-23-2023 MCV (RBC) [Entitic vol] 98.5 fL 80-94 [facility] Hematocrit Auto (Bld) [Volum e fraction]Ordered By: Pepe Au on 11-23-2023 Hematocrit (Bld) [Volume fraction] 31.8 % 40-54 [facility] Iron measurement (mass/mass) Ordered By: Pepe Au on 11-23-2023 Iron (Unsp spec) [Mass/Mass] 57 ug/dL 65-175 [facility] Laboratory - Chemistry and C hemistry - challengeOrdered By: Pepe Au on 11-23-2023 CO2 [Moles/Vol] 26.0 mmol/L 21.0-32.0 [facility] Urea nitrogen/Creatinine [Mass ratio] 26.6 mg/mg 10-20 [facility] Laboratory - Hematology and Cell countsOrdered By: Pepe Au on 11-23-2023 Erythrocyte distribution width (RBC) [Entitic vol] 55.5 fL 35.1-43.9 [facility] Erythrocyte distribution width (RBC) [Ratio] 15.7 % 11.6-14.6 [facility] Immature granulocytes/100 WBC (Bld) 0.500 % 0.0-0.9 [facility] Comment on above: IG% - Immature Granu locytes (promyelocytes, myelocytes and metamyelocytes) > 1% indicates that a LEFT SHIFT is Present. MCH (RBC) [Entitic mass] 31.6 pg 27.0-32.0 [facility] Nucleated RBC/100 WBC (Bld) [Ratio] 0 % 0-5 [facility] MCHC Auto (RBC) [Mass/Vol]Or dered By: Pepe Au on 11-23-2023 MCHC (RBC) [Mass/Vol] 32.1 g/dL 32-36 [facility] No Panel InformationOrdered By: Pepe Au on 11-23-2023 Estimated GFR (MDRD) Amer 33 mL/min >60 [facility] Comment on above: GFR Calc Estimated GFR (MDRD) Non-Af Amer 27 mL/min >60 [facility] Comment on above: Non- GFR Calc Total Iron Binding Capacity 223 ug/dL 250-450 [facility] 31.6 pg 27.0-32.0 [facility] 15.7 % 11.6-14.6 [facility] 55.5 fl 35.1-43.9 [facility] 0.500 % 0.0-0.9 [facility] 0 % 0-5 [facility] 27 mL/min >60 [facility] 33 mL/min >60 [facility] 26.6 RATIO 10-20 [facility] 26.0 mmol/L 21.0-32.0 [facility] 223 ug/dL 250-450 [facility] Platelets bldOrdered By: Zandra Au on 11-23-2023 Platelets (Bld) [#/Vol] 134 10*3/uL 150-450 [facility] Serum or plasma albumin aubree urement (mass/volume)Ordered By: Pepe Au on 11-23-2023 Albumin [Mass/Vol] 2.9 g/dL 3.2-5.0 [facility] Serum or plasma calcium aubree urement (mass/volume)Ordered By: Pepe Au on 11-23-2023 Calcium [Mass/Vol] 9.8 mg/dL 8.5-10.1 [facility] Serum or plasma creatinine m easurement (mass/volume)Ordered By: Pepe Au on 11-23-2023 Creatinine [Mass/Vol] 2.44 mg/dL 0.70-1.30 [facility] Comment on above: The validity of the calculated GFR & GFRAA in patients over 70 years has not been determined. Clinical correlation is essential. Serum or plasma ferritin laurie surement (mass/volume)Ordered By: Pepe Au on 11-23-2023 Ferritin [Mass/Vol] 208 ng/mL 26-388 [facility] Serum or plasma iron saturat ion measurement (mass fraction)Ordered By: [facility] on 11-23-2023 Iron saturation [Mass fraction] 25.6 % 15.0-55.0 [facility] Serum or plasma urea nitroge n measurement (mass/volume)Ordered By: Pepe Au on 11-23-2023 Urea nitrogen [Mass/Vol] 65 mg/dL 7-18 [facility] Absolute lymphocyte countOrd ered By: Pepe Au on 10-26-2023 Lymphocytes Auto (Unsp spec) [#/Vol] 1.33 10*3/uL 0.83-4.51 [facility] Basophil percentageOrdered B y: Pepe Au on 10-26-2023 Basophil percentage 176 mg/dL 74-106 [facility] Basophil percentage 2.9 mg/dL 2.5-4.9 [facility] Basophil percentage 141 mmol/L 136-145 [facility] Basophil percentage 4.5 mmol/L 3.5-5.1 [facility] Basophil percentage 109 mmol/L 98-107 [facility] Basophils (Bld) [#/Vol] 5.9 10*3/uL 4.4-11.0 [facility] Basophils (Bld) [#/Vol] 3.7 10*3/uL 2.0-7.7 [facility] Basophils/100 WBC (Bld) 62.8 % 47-70 [facility] Basophils/100 WBC (Bld) 4.8 % 0-5 [facility] Basophils/100 WBC (Bld) 0.7 % 0-1 [facility] Chloride [Moles/Vol] 109 mmol/L 98-107 [facility] Eosinophils/100 WBC (Bld) 4.8 % 0-5 [facility] Glucose [Mass/Vol] 176 mg/dL 74-106 [facility] Comment on above: Fasting Glucose resu lt greater than or equal to 126 mg/dL suggests DIABETES MELLITUS per A.D.A. criteria. Neutrophils (Bld) [#/Vol] 3.7 10*3/uL 2.0-7.7 [facility] Neutrophils/100 WBC (Bld) 62.8 % 47-70 [facility] Potassium [Moles/Vol] 4.5 mmol/L 3.5-5.1 [facility] Sodium [Moles/Vol] 141 mmol/L 136-145 [facility] WBC (Bld) [#/Vol] 5.9 10*3/uL 4.4-11.0 [facility] Blood erythrocytes count (nu mber/volume)Ordered By: Pepe Au on 10-26-2023 RBC (Bld) [#/Vol] 3.85 10*6/uL 4.6-6.2 [facility] Blood hemoglobin measurement (mass/volume)Ordered By: Pepe Au on 10-26-2023 Hemoglobin (Bld) [Mass/Vol] 11.8 g/dL 13.0-16.5 [facility] Blood lymphocytes/100 leukoc ytesOrdered By: Pepe Au on 10-26-2023 Lymphocytes/100 WBC (Bld) 22.7 % 19-41 [facility] Blood monocytes/100 leukocyt esOrdered By: [facility] Au on 10-26-2023 Monocytes/100 WBC (Bld) 8.7 % 0-10 [facility] Blood platelet mean volumeOr dered By: Pepe Au on 10-26-2023 Platelet mean volume (Bld) [Entitic vol] 10.3 fL 6.2-12.0 [facility] Determination of erythrocyte mean corpuscular volume (MCV)Ordered By: Pepe Au on 10-26-2023 MCV (RBC) [Entitic vol] 98.4 fL 80-94 [facility] Hematocrit Auto (Bld) [Volum e fraction]Ordered By: Pepe Au on 10-26-2023 Hematocrit (Bld) [Volume fraction] 37.9 % 40-54 [facility] Iron measurement (mass/mass) Ordered By: Pepe Au on 10-26-2023 Iron (Unsp spec) [Mass/Mass] 41 ug/dL 65-175 [facility] Laboratory - Chemistry and C hemistry - challengeOrdered By: [facility] on 10-26-2023 CO2 [Moles/Vol] 24.0 mmol/L 21.0-32.0 [facility] Urea nitrogen/Creatinine [Mass ratio] 23.1 mg/mg 10-20 [facility] Laboratory - Hematology and Cell countsOrdered By: [facility] on 10-26-2023 Erythrocyte distribution width (RBC) [Entitic vol] 51.5 fL 35.1-43.9 [facility] Erythrocyte distribution width (RBC) [Ratio] 14.3 % 11.6-14.6 [facility] Immature granulocytes/100 WBC (Bld) 0.300 % 0.0-0.9 [facility] Comment on above: IG% - Immature Granu locytes (promyelocytes, myelocytes and metamyelocytes) > 1% indicates that a LEFT SHIFT is Present. MCH (RBC) [Entitic mass] 30.6 pg 27.0-32.0 [facility] Nucleated RBC/100 WBC (Bld) [Ratio] 0 % 0-5 [facility] MCHC Auto (RBC) [Mass/Vol]Or dered By: Pepe Au on 10-26-2023 MCHC (RBC) [Mass/Vol] 31.1 g/dL 32-36 [facility] No Panel InformationOrdered By: Pepe Au on 10-26-2023 Estimated GFR (MDRD) Amer 34 mL/min >60 [facility] Comment on above: GFR Calc Estimated GFR (MDRD) Non-Af Amer 28 mL/min >60 [facility] Comment on above: Non- GFR Calc Total Iron Binding Capacity 243 ug/dL 250-450 [facility] 30.6 pg 27.0-32.0 [facility] 14.3 % 11.6-14.6 [facility] 51.5 fl 35.1-43.9 [facility] 0.300 % 0.0-0.9 [facility] 0 % 0-5 [facility] 28 mL/min >60 [facility] 34 mL/min >60 [facility] 23.1 RATIO 10-20 [facility] 24.0 mmol/L 21.0-32.0 [facility] 243 ug/dL 250-450 [facility] Platelets bldOrdered By: Zandra Au on 10-26-2023 Platelets (Bld) [#/Vol] 162 10*3/uL 150-450 [facility] Serum or plasma albumin aubree urement (mass/volume)Ordered By: Pepe Au on 10-26-2023 Albumin [Mass/Vol] 3.2 g/dL 3.2-5.0 [facility] Serum or plasma calcium aubree urement (mass/volume)Ordered By: Pepe Au on 10-26-2023 Calcium [Mass/Vol] 9.3 mg/dL 8.5-10.1 [facility] Serum or plasma creatinine m easurement (mass/volume)Ordered By: Pepe Au on 10-26-2023 Creatinine [Mass/Vol] 2.38 mg/dL 0.70-1.30 [facility] Comment on above: The validity of the calculated GFR & GFRAA in patients over 70 years has not been determined. Clinical correlation is essential. Serum or plasma ferritin laurie surement (mass/volume)Ordered By: Pepe Au on 10-26-2023 Ferritin [Mass/Vol] 177 ng/mL 26-388 [facility] Serum or plasma iron saturat ion measurement (mass fraction)Ordered By: Pepe Au on 10-26-2023 Iron saturation [Mass fraction] 16.9 % 15.0-55.0 [facility] Serum or plasma urea nitroge n measurement (mass/volume)Ordered By: Pepe Au on 10-26-2023 Urea nitrogen [Mass/Vol] 55 mg/dL 7-18 [facility] Absolute lymphocyte countOrd ered By: Pepe Au on 09-28-2023 Lymphocytes Auto (Unsp spec) [#/Vol] 1.28 10*3/uL 0.83-4.51 [facility] Basophil percentageOrdered B y: Pepe Au on 09-28-2023 Basophil percentage 113 mg/dL 74-106 [facility] Basophil percentage 3.5 mg/dL 2.5-4.9 [facility] Basophil percentage 141 mmol/L 136-145 [facility] Basophil percentage 4.7 mmol/L 3.5-5.1 [facility] Basophil percentage 110 mmol/L 98-107 [facility] Basophils (Bld) [#/Vol] 7.2 10*3/uL 4.4-11.0 [facility] Basophils (Bld) [#/Vol] 5.3 10*3/uL 2.0-7.7 [facility] Basophils/100 WBC (Bld) 73.9 % 47-70 [facility] Basophils/100 WBC (Bld) 2.1 % 0-5 [facility] Basophils/100 WBC (Bld) 0.4 % 0-1 [facility] Chloride [Moles/Vol] 110 mmol/L 98-107 [facility] Eosinophils/100 WBC (Bld) 2.1 % 0-5 [facility] Glucose [Mass/Vol] 113 mg/dL 74-106 [facility] Comment on above: Fasting Glucose resu lt from 100 to 125 mg/dL suggests IMPAIRED HOMEOSTASIS per A.D.A. criteria. Neutrophils (Bld) [#/Vol] 5.3 10*3/uL 2.0-7.7 [facility] Neutrophils/100 WBC (Bld) 73.9 % 47-70 [facility] Potassium [Moles/Vol] 4.7 mmol/L 3.5-5.1 [facility] Sodium [Moles/Vol] 141 mmol/L 136-145 [facility] WBC (Bld) [#/Vol] 7.2 10*3/uL 4.4-11.0 [facility] Blood erythrocytes count (nu mber/volume)Ordered By: Pepe Au on 09-28-2023 RBC (Bld) [#/Vol] 3.28 10*6/uL 4.6-6.2 [facility] Blood hemoglobin measurement (mass/volume)Ordered By: Pepe Au on 09-28-2023 Hemoglobin (Bld) [Mass/Vol] 10.2 g/dL 13.0-16.5 [facility] Blood lymphocytes/100 leukoc ytesOrdered By: Pepe Au on 09-28-2023 Lymphocytes/100 WBC (Bld) 17.9 % 19-41 [facility] Blood monocytes/100 leukocyt esOrdered By: Pepe Au on 09-28-2023 Monocytes/100 WBC (Bld) 5.4 % 0-10 [facility] Blood platelet mean volumeOr dered By: Pepe Au on 09-28-2023 Platelet mean volume (Bld) [Entitic vol] 10.7 fL 6.2-12.0 [facility] Determination of erythrocyte mean corpuscular volume (MCV)Ordered By: Pepe Au on 09-28-2023 MCV (RBC) [Entitic vol] 100.9 fL 80-94 [facility] Hematocrit Auto (Bld) [Volum e fraction]Ordered By: Pepe Au on 09-28-2023 Hematocrit (Bld) [Volume fraction] 33.1 % 40-54 [facility] Iron measurement (mass/mass) Ordered By: Pepe Au on 09-28-2023 Iron (Unsp spec) [Mass/Mass] 49 ug/dL 65-175 [facility] Laboratory - Chemistry and C hemistry - challengeOrdered By: Pepe Au on 09-28-2023 CO2 [Moles/Vol] 27.0 mmol/L 21.0-32.0 [facility] Urea nitrogen/Creatinine [Mass ratio] 24.4 mg/mg 10-20 [facility] Laboratory - Hematology and Cell countsOrdered By: Pepe Au on 09-28-2023 Erythrocyte distribution width (RBC) [Entitic vol] 55.8 fL 35.1-43.9 [facility] Erythrocyte distribution width (RBC) [Ratio] 15.2 % 11.6-14.6 [facility] Immature granulocytes/100 WBC (Bld) 0.300 % 0.0-0.9 [facility] Comment on above: IG% - Immature Granu locytes (promyelocytes, myelocytes and metamyelocytes) > 1% indicates that a LEFT SHIFT is Present. MCH (RBC) [Entitic mass] 31.1 pg 27.0-32.0 [facility] Nucleated RBC/100 WBC (Bld) [Ratio] 0 % 0-5 [facility] MCHC Auto (RBC) [Mass/Vol]Or dered By: Pepe Au on 09-28-2023 MCHC (RBC) [Mass/Vol] 30.8 g/dL 32-36 [facility] No Panel InformationOrdered By: Pepe Au on 09-28-2023 Estimated GFR (MDRD) Amer 35 mL/min >60 [facility] Comment on above: GFR Calc Estimated GFR (MDRD) Non-Af Amer 29 mL/min >60 [facility] Comment on above: Non- GFR Calc Parathyroid Hormone (Intact) 33.4 pg/mL 18.4-80.1 [facility] Total Iron Binding Capacity 257 ug/dL 250-450 [facility] 31.1 pg 27.0-32.0 [facility] 15.2 % 11.6-14.6 [facility] 55.8 fl 35.1-43.9 [facility] 0.300 % 0.0-0.9 [facility] 0 % 0-5 [facility] System 29 mL/min >60 [facility] 35 mL/min >60 [facility] 24.4 RATIO 10-20 [facility] 27.0 mmol/L 21.0-32.0 [facility] 257 ug/dL 250-450 [facility] 33.4 pg/mL 18.4-80.1 [facility] Platelets bldOrdered By: Zandra Au on 09-28-2023 Platelets (Bld) [#/Vol] 147 10*3/uL 150-450 [facility] Serum or plasma albumin aubree urement (mass/volume)Ordered By: Pepe Au on 09-28-2023 Albumin [Mass/Vol] 3.1 g/dL 3.2-5.0 [facility] Serum or plasma calcium aubree urement (mass/volume)Ordered By: Pepe Au on 09-28-2023 Calcium [Mass/Vol] 9.3 mg/dL 8.5-10.1 [facility] Serum or plasma creatinine m easurement (mass/volume)Ordered By: Pepe Au on 09-28-2023 Creatinine [Mass/Vol] 2.34 mg/dL 0.70-1.30 [facility] Comment on above: The validity of the calculated GFR & GFRAA in patients over 70 years has not been determined. Clinical correlation is essential. Serum or plasma ferritin laurie surement (mass/volume)Ordered By: Pepe Au on 09-28-2023 Ferritin [Mass/Vol] 175 ng/mL 26-388 [facility] Serum or plasma iron saturat ion measurement (mass fraction)Ordered By: Pepe Au on 09-28-2023 Iron saturation [Mass fraction] 19.1 % 15.0-55.0 [facility] Serum or plasma urea nitroge n measurement (mass/volume)Ordered By: [facility] Au on 09-28-2023 Urea nitrogen [Mass/Vol] 57 mg/dL 7-18 [facility] Absolute lymphocyte countOrd ered By: Eladio Lucas on 09-22-2023 Lymphocytes Auto (Unsp spec) [#/Vol] 1.44 10*3/uL 0.83-4.51 [facility] Basophil percentageOrdered B y: Eladio Lucas on 09-22-2023 Basophil percentage 129 mg/dL 74-106 [facility] Basophil percentage 137 mmol/L 136-145 [facility] Basophil percentage 4.4 mmol/L 3.5-5.1 [facility] Basophil percentage 105 mmol/L 98-107 [facility] Basophils (Bld) [#/Vol] 7.7 10*3/uL 4.4-11.0 [facility] Basophils (Bld) [#/Vol] 5.3 10*3/uL 2.0-7.7 [facility] Basophils/100 WBC (Bld) 68.7 % 47-70 [facility] Basophils/100 WBC (Bld) 3.7 % 0-5 [facility] Basophils/100 WBC (Bld) 0.4 % 0-1 [facility] Chloride [Moles/Vol] 105 mmol/L 98-107 [facility] Eosinophils/100 WBC (Bld) 3.7 % 0-5 [facility] Glucose [Mass/Vol] 129 mg/dL 74-106 [facility] Comment on above: Fasting Glucose resu lt greater than or equal to 126 mg/dL suggests DIABETES MELLITUS per A.D.A. criteria. Neutrophils (Bld) [#/Vol] 5.3 10*3/uL 2.0-7.7 [facility] Neutrophils/100 WBC (Bld) 68.7 % 47-70 [facility] Potassium [Moles/Vol] 4.4 mmol/L 3.5-5.1 [facility] Sodium [Moles/Vol] 137 mmol/L 136-145 [facility] WBC (Bld) [#/Vol] 7.7 10*3/uL 4.4-11.0 [facility] Blood erythrocytes count (nu mber/volume)Ordered By: Eladio Lucas on 09-22-2023 RBC (Bld) [#/Vol] 3.03 10*6/uL 4.6-6.2 [facility] Blood hemoglobin measurement (mass/volume)Ordered By: Eladio Lucas on 09-22-2023 Hemoglobin (Bld) [Mass/Vol] 9.5 g/dL 13.0-16.5 [facility] Blood lymphocytes/100 leukoc ytesOrdered By: Eladio Lucas on 09-22-2023 Lymphocytes/100 WBC (Bld) 18.8 % 19-41 [facility] Blood monocytes/100 leukocyt esOrdered By: Eladio Lucas on 09-22-2023 Monocytes/100 WBC (Bld) 8.1 % 0-10 [facility] Blood platelet mean volumeOr dered By: Eladio Lucas on 09-22-2023 Platelet mean volume (Bld) [Entitic vol] 11.5 fL 6.2-12.0 [facility] Determination of erythrocyte mean corpuscular volume (MCV)Ordered By: Eladio Lucas on 09-22-2023 MCV (RBC) [Entitic vol] 100.0 fL 80-94 [facility] Glucose Glucometer (BldC) [M ass/Vol]Ordered By: Eladio Lucas on 09-22-2023 Glucose [Mass/Vol] 182 mg/dL 74-106 [facility] Comment on above: MANAGEMENT OF PATIEN T CARE PER NURSING PROTOCOL Glucose [Mass/Vol] 197 mg/dL 74-106 [facility] Hematocrit Auto (Bld) [Volum e fraction]Ordered By: Eladio Lucas on 09-22-2023 Hematocrit (Bld) [Volume fraction] 30.3 % 40-54 [facility] Laboratory - Chemistry and C hemistry - challengeOrdered By: Eladio Lucas on 09-22-2023 CO2 [Moles/Vol] 27.0 mmol/L 21.0-32.0 [facility] Urea nitrogen/Creatinine [Mass ratio] 26.5 mg/mg 10-20 [facility] Laboratory - Hematology and Cell countsOrdered By: Eladio Lucas on 09-22-2023 Erythrocyte distribution width (RBC) [Entitic vol] 57.0 fL 35.1-43.9 [facility] Erythrocyte distribution width (RBC) [Ratio] 15.6 % 11.6-14.6 [facility] Immature granulocytes/100 WBC (Bld) 0.300 % 0.0-0.9 [facility] Comment on above: IG% - Immature Granu locytes (promyelocytes, myelocytes and metamyelocytes) > 1% indicates that a LEFT SHIFT is Present. MCH (RBC) [Entitic mass] 31.4 pg 27.0-32.0 [facility] Nucleated RBC/100 WBC (Bld) [Ratio] 0 % 0-5 [facility] MCHC Auto (RBC) [Mass/Vol]Or dered By: Eladio Lucas on 09-22-2023 MCHC (RBC) [Mass/Vol] 31.4 g/dL 32-36 [facility] No Panel InformationOrdered By: Eladio Lucas on 09-22-2023 Estimated Creatinine Clearance Calc 18.02 ml/min [facility] Estimated GFR (MDRD) Amer 29 mL/min >60 [facility] Comment on above: GFR Calc Estimated GFR (MDRD) Non-Af Amer 24 mL/min >60 [facility] Comment on above: Non- GFR Calc 31.4 pg 27.0-32.0 [facility] 15.6 % 11.6-14.6 [facility] 57.0 fl 35.1-43.9 [facility] 0.300 % 0.0-0.9 [facility] 0 % 0-5 [facility] 24 mL/min >60 [facility] 29 mL/min >60 [facility] 18.02 ml/min [facility] 26.5 RATIO 10-20 [facility] 27.0 mmol/L 21.0-32.0 [facility] Platelets bldOrdered By: Kirby Lucas on 09-22-2023 Platelets (Bld) [#/Vol] 132 10*3/uL 150-450 [facility] Serum or plasma calcium aubree urement (mass/volume)Ordered By: Eladio Lucas on 09-22-2023 Calcium [Mass/Vol] 9.0 mg/dL 8.5-10.1 [facility] Serum or plasma creatinine m easurement (mass/volume)Ordered By: Eladio Lucas on 09-22-2023 Creatinine [Mass/Vol] 2.75 mg/dL 0.70-1.30 [facility] Comment on above: The validity of the calculated GFR & GFRAA in patients over 70 years has not been determined. Clinical correlation is essential. Serum or plasma urea nitroge n measurement (mass/volume)Ordered By: Eladio Lucas on 09-22-2023 Urea nitrogen [Mass/Vol] 73 mg/dL 7-18 [facility] Thin prep Papanicolaou smear with manual screeningOrdered By: Eladio Lucas on 09-22-2023 Thin prep Papanicolaou smear with manual screening 5 5-15 [facility] Basophil percentageOrdered B y: Patricia White on 09-17-2023 Basophil percentage 7.1 g/dL 6.4-8.2 [facility] Basophil percentage 0.70 mg/dL 0.20-1.00 [facility] Bilirubin [Mass/Vol] 0.70 mg/dL 0.20-1.00 [facility] Comment on above: For patients on eltr ombopag therapy, use of Dimension [place] TBIL is not recommended. Protein [Mass/Vol] 7.1 g/dL 6.4-8.2 [facility] Laboratory - Chemistry and C hemistry - challengeOrdered By: [facility] [place] on 09-17-2023 ALP [Catalytic activity/Vol] 173 U/L [facility] ALT [Catalytic activity/Vol] 17 U/L [facility] Globulin (S) [Mass/Vol] 4.3 g/dL 2.2-4.2 [facility] No Panel InformationOrdered By: [facility] [place] on 09-17-2023 4.3 g/dL 2.2-4.2 [facility] 173 U/L [facility] 17 U/L [facility] Serum or plasma albumin aubree urement (mass/volume)Ordered By: [facility] [place] on 09-17-2023 Albumin [Mass/Vol] 2.8 g/dL 3.2-5.0 [facility] Serum or plasma albumin/glob ulin mass ratioOrdered By: [facility] [place] on 09-17-2023 Albumin/Globulin [Mass ratio] 0.7 {ratio} 0.9-2.4 [facility] Thin prep Papanicolaou smear with manual screeningOrdered By: [facility] [place] on 09-17-2023 Thin prep Papanicolaou smear with manual screening 13 U/L 15-37 [facility] Absolute lymphocyte countOrd ered By: Cesar Medina on 09-16-2023 Lymphocytes Auto (Unsp spec) [#/Vol] 1.34 10*3/uL 0.83-4.51 [facility] Basophil percentageOrdered B y: Cesar Medina on 09-16-2023 Basophil percentage 131 mg/dL 74-106 [facility] Basophil percentage 141 mmol/L 136-145 [facility] Basophil percentage 4.8 mmol/L 3.5-5.1 [facility] Basophil percentage 112 mmol/L 98-107 [facility] Basophils (Bld) [#/Vol] 7.1 10*3/uL 4.4-11.0 [facility] Basophils (Bld) [#/Vol] 4.8 10*3/uL 2.0-7.7 [facility] Basophils/100 WBC (Bld) 68.1 % 47-70 [facility] Basophils/100 WBC (Bld) 3.7 % 0-5 [facility] Basophils/100 WBC (Bld) 0.4 % 0-1 [facility] Blood erythrocytes count (nu mber/volume)Ordered By: Cesar Medina on 09-16-2023 RBC (Bld) [#/Vol] 3.16 10*6/uL 4.6-6.2 [facility] Blood hemoglobin measurement (mass/volume)Ordered By: Cesar Medina on 09-16-2023 Hemoglobin (Bld) [Mass/Vol] 10.1 g/dL 13.0-16.5 [facility] Blood lymphocytes/100 leukoc ytesOrdered By: Cesar Medina on 09-16-2023 Lymphocytes/100 WBC (Bld) 19.0 % 19-41 [facility] Blood monocytes/100 leukocyt esOrdered By: Cesar Medina on 09-16-2023 Monocytes/100 WBC (Bld) 8.1 % 0-10 [facility] Blood platelet mean volumeOr dered By: Cesar Medina on 09-16-2023 Platelet mean volume (Bld) [Entitic vol] 11.2 fL 6.2-12.0 [facility] Determination of erythrocyte mean corpuscular volume (MCV)Ordered By: Cesar Medina on 09-16-2023 MCV (RBC) [Entitic vol] 101.9 fL 80-94 [facility] Hematocrit Auto (Bld) [Volum e fraction]Ordered By: Cesar Medina on 09-16-2023 Hematocrit (Bld) [Volume fraction] 32.2 % 40-54 [facility] Laboratory - Chemistry and C hemistry - challengeOrdered By: Patricia Alcantara on 09-16-2023 Magnesium [Mass/Vol] 2.0 mg/dL 1.6-2.6 [facility] Laboratory - Chemistry and C hemistry - challengeOrdered By: Cesar Medina on 09-16-2023 Natriuretic peptide B (Bld) [Mass/Vol] 179.0 pg/mL 0-100 [facility] Laboratory - Microbiology an d Antimicrobial susceptibilityOrdered By: Patricia Alcantara on 09-16-2023 SARS-CoV-2 (COVID-19) RNA ELIANE+probe [facility]l [facility]sp spec) [facility] (RBC) [Mass/Vol]Or dered By: Cesar Medina on 09-16-2023 MCHC (RBC) [Mass/Vol] 31.4 g/dL 32-36 [facility] No Panel InformationOrdered By: Patricia Alcantara on 09-16-2023 Troponin I High Sensitivity 45 pg/mL 3.0-78.0 [facility] Comment on above: Please Note: New Meghana t Units and Gender Specific Reference Ranges. For more information see Policy Stat Procedure [place] High Sensitivity Troponin (TNIH) and attachments. 45 pg/mL 3.0-78.0 [facility] 2.0 mg/dL 1.6-2.6 [facility] No Panel InformationOrdered By: Cesar Medina on 09-16-2023 46 pg/mL 3.0-78.0 [facility] 32.0 pg 27.0-32.0 [facility] 16.4 % 11.6-14.6 [facility] 60.7 fl 35.1-43.9 [facility] 0.700 % 0.0-0.9 [facility] 0 % 0-5 [facility] 32 mL/min >60 [facility] 39 mL/min >60 [facility] 23.37 ml/min [facility] 25.0 RATIO - [facility] 22.0 mmol/L 21.0-32.0 [facility] 179.0 pg/mL 0-100 [facility] Platelets bldOrdered By: Jodie Medina on 09-16-2023 Platelets (Bld) [#/Vol] 130 10*3/uL 150-450 [facility] Respiratory pathogens detect ion panel by molecular detection methodOrdered By: Patricia Alcantara on 09-16-2023 Respiratory pathogens DNA and RNA panel ELIANE+probe (Resp) [facility] Serum or plasma calcium aubree urement (mass/volume)Ordered By: Cesar Medina on 09-16-2023 Calcium [Mass/Vol] 8.8 mg/dL 8.5-10.1 [facility] Serum or plasma creatinine m easurement (mass/volume)Ordered By: Cesar Medina on 09-16-2023 Creatinine [Mass/Vol] 2.12 mg/dL 0.70-1.30 [facility] Serum or plasma urea nitroge n measurement (mass/volume)Ordered By: Cesar Medina on 09-16-2023 Urea nitrogen [Mass/Vol] 53 mg/dL 7-18 [facility] Serum procalcitonin measurem entOrdered By: Patricia Alcantara on 09-16-2023 Procalcitonin [Mass/Vol] 0.08 ng/mL 0.00-0.09 [facility] Comment on above: A procalcitonin (PCT ) level above 2.0 ng/mL on the first day of ICU admission is associated with a high risk for progression to severe sepsis and/or septic shock. A PCT level below 0.5 ng/mL on the first day of ICU admission is associated with a low risk for progression to severe and/or septic shock. Note: Concentrations <0.5 ng/mL do not exclude an infection on account of localized infections (without systemic signs) which can be associated with such low concentrations, or a systemic infection in its initial stages (<6 hours). Furthermore, increased procalcitonin can occur without infection. PCT concentrations between 0.5 and 2.0 ng/mL should be interpreted taking into account the patient's history. It is recommended to retest PCT within 6-24 hours if any concentrations <2 ng/mL are obtained. Thin prep Papanicolaou smear with manual screeningOrdered By: Cesar Medina on 09-16-2023 Thin prep Papanicolaou smear with manual screening 7 -15 [facility] Absolute lymphocyte countOrd ered By: James Camarillo on 08-22-2023 Lymphocytes Auto (Unsp spec) [#/Vol] 1.57 10*3/uL 0.83-4.51 [facility] Basophil percentageOrdered B y: James Camarillo on 08-22-2023 Basophil percentage 131 mg/dL 74-106 [facility] Basophil percentage 139 mmol/L 136-145 [facility] Basophil percentage 4.7 mmol/L 3.5-5.1 [facility] Basophil percentage 112 mmol/L 98-107 [facility] Basophils (Bld) [#/Vol] 9.5 10*3/uL 4.4-11.0 [facility] Basophils (Bld) [#/Vol] 7.2 10*3/uL 2.0-7.7 [facility] Basophils/100 WBC (Bld) 75.8 % 47-70 [facility] Basophils/100 WBC (Bld) 1.4 % 0-5 [facility] Basophils/100 WBC (Bld) 0.4 % 0-1 [facility] Blood erythrocytes count (nu mber/volume)Ordered By: James Camarillo on 08-22-2023 RBC (Bld) [#/Vol] 3.28 10*6/uL 4.6-6.2 [facility] Blood hemoglobin measurement (mass/volume)Ordered By: James Camarillo on 08-22-2023 Hemoglobin (Bld) [Mass/Vol] 10.2 g/dL 13.0-16.5 [facility] Blood lymphocytes/100 leukoc ytesOrdered By: James Camarillo on 08-22-2023 Lymphocytes/100 WBC (Bld) 16.5 % 19-41 [facility] Blood monocytes/100 leukocyt esOrdered By: James Camarillo on 08-22-2023 Monocytes/100 WBC (Bld) 5.6 % 0-10 [facility] Blood platelet mean volumeOr dered By: James Camarillo on 08-22-2023 Platelet mean volume (Bld) [Entitic vol] 10.8 fL 6.2-12.0 [facility] COVID-19 virus antigen assay Ordered By: Mikey Macias on 08-22-2023 SARS-CoV-2 (COVID-19) Ag IA.rapid Ql (Resp) [facility] SARS-CoV-2 (COVID-19) Ag IA.rapid Ql (Resp) [facility] Determination of erythrocyte mean corpuscular volume (MCV)Ordered By: James Camarillo on 08-22-2023 MCV (RBC) [Entitic vol] 98.2 fL 80-94 [facility] Glucose Glucometer (BldC) [M ass/Vol]Ordered By: Mikey Macias on 08-22-2023 Glucose [Mass/Vol] 170 mg/dL 74-106 [facility] Hematocrit Auto (Bld) [Volum e fraction]Ordered By: James Camarillo on 08-22-2023 Hematocrit (Bld) [Volume fraction] 32.2 % 40-54 [facility] MCHC Auto (RBC) [Mass/Vol]Or dered By: James Camarillo on 08-22-2023 MCHC (RBC) [Mass/Vol] 31.7 g/dL 32-36 [facility] No Panel InformationOrdered By: James Camarillo on 08-22-2023 31.1 pg 27.0-32.0 [facility] 14.2 % 11.6-14.6 [facility] 51.4 fl 35.1-43.9 [facility] 0.300 % 0.0-0.9 [facility] 0 % 0-5 [facility] 26 mL/min >60 [facility] 32 mL/min >60 [facility] 19.74 ml/min [facility] 18.3 RATIO 10-20 [facility] 21.0 mmol/L 21.0-32.0 [facility] Platelets bldOrdered By: Juan Camarillo on 08-22-2023 Platelets (Bld) [#/Vol] 137 10*3/uL 150-450 [facility] Serum or plasma calcium aubree urement (mass/volume)Ordered By: James Camarillo on 08-22-2023 Calcium [Mass/Vol] 8.7 mg/dL 8.5-10.1 [facility] Serum or plasma creatinine m easurement (mass/volume)Ordered By: James Camarillo on 08-22-2023 Creatinine [Mass/Vol] 2.51 mg/dL 0.70-1.30 [facility] Serum or plasma urea nitroge n measurement (mass/volume)Ordered By: James Camarillo on 08-22-2023 Urea nitrogen [Mass/Vol] 46 mg/dL 7-18 [facility] Thin prep Papanicolaou smear with manual screeningOrdered By: James Camarillo on 08-22-2023 Thin prep Papanicolaou smear with manual screening 6 5-15 [facility] Basophil percentageOrdered B y: James Camarillo on 08-21-2023 Basophil percentage 2.6 mg/dL 2.5-4.9 [facility] No Panel InformationOrdered By: James Camarillo on 08-21-2023 1.9 mg/dL 1.6-2.6 [facility] No Panel InformationOrdered By: James Camarillo on 08-20-2023 96.3 Seconds 24.1-36.2 [facility] Basophil percentageOrdered B y: [facility] [place] on 08-19-2023 Basophil percentage 6.9 g/dL 6.4-8.2 [facility] Basophil percentage 0.50 mg/dL 0.20-1.00 [facility] No Panel InformationOrdered By: [facility] [place] on 08-19-2023 4.5 g/dL 2.2-4.2 [facility] 110 U/L 45-117 [facility] 15 U/L 16-61 [facility] 5.80 uIU/mL 0.358-3.74 [facility] Serum or plasma albumin aubree urement (mass/volume)Ordered By: Patricia [place] on 08-19-2023 Albumin [Mass/Vol] 2.4 g/dL 3.2-5.0 [facility] Serum or plasma albumin/glob ulin mass ratioOrdered By: [facility] [place] on 08-19-2023 Albumin/Globulin [Mass ratio] 0.5 {ratio} 0.9-2.4 [facility] Thin prep Papanicolaou smear with manual screeningOrdered By: Patricia [place] on 08-19-2023 Thin prep Papanicolaou smear with manual screening 17 U/L 15-37 [facility] Absolute lymphocyte countOrd ered By: Farhan Bonds on 08-18-2023 Lymphocytes Auto (Unsp spec) [#/Vol] 1.58 10*3/uL 0.83-4.51 [facility] Absolute lymphocyte countOrd ered By: Jeremy Magallanes on 08-18-2023 Lymphocytes Auto (Unsp spec) [#/Vol] 1.56 10*3/uL 0.83-4.51 [facility] Basophil percentageOrdered B y: Patricia lAcantara on 08-18-2023 Ammonia (P) [Moles/Vol] 14.0 umol/L 11-32 [facility] Basophil percentage 14.0 umol/L 11-32 [facility] Basophil percentageOrdered B y: Farhan Bonds on 08-18-2023 Basophil percentage 151 mg/dL 74-106 [facility] Basophil percentage 139 mmol/L 136-145 [facility] Basophil percentage 4.5 mmol/L 3.5-5.1 [facility] Basophil percentage 107 mmol/L 98-107 [facility] Basophils (Bld) [#/Vol] 9.0 10*3/uL 4.4-11.0 [facility] Basophils (Bld) [#/Vol] 6.6 10*3/uL 2.0-7.7 [facility] Basophils/100 WBC (Bld) 73.4 % 47-70 [facility] Basophils/100 WBC (Bld) 1.8 % 0-5 [facility] Basophils/100 WBC (Bld) 0.4 % 0-1 [facility] Chloride [Moles/Vol] 107 mmol/L 98-107 [facility] Eosinophils/100 WBC (Bld) 1.8 % 0-5 [facility] Glucose [Mass/Vol] 151 mg/dL 74-106 [facility] Comment on above: Fasting Glucose resu lt greater than or equal to 126 mg/dL suggests DIABETES MELLITUS per A.D.A. criteria. Neutrophils (Bld) [#/Vol] 6.6 10*3/uL 2.0-7.7 [facility] Neutrophils/100 WBC (Bld) 73.4 % 47-70 [facility] Potassium [Moles/Vol] 4.5 mmol/L 3.5-5.1 [facility] Sodium [Moles/Vol] 139 mmol/L 136-145 [facility] WBC (Bld) [#/Vol] 9.0 10*3/uL 4.4-11.0 [facility] Basophil percentageOrdered B y: Jeremy Magallanes on 08-18-2023 Basophil percentage 144 mg/dL 74-106 [facility] Basophil percentage 7.1 g/dL 6.4-8.2 [facility] Basophil percentage 0.70 mg/dL 0.20-1.00 [facility] Basophil percentage 139 mmol/L 136-145 [facility] Basophil percentage 4.2 mmol/L 3.5-5.1 [facility] Basophil percentage 106 mmol/L 98-107 [facility] Basophils (Bld) [#/Vol] 9.1 10*3/uL 4.4-11.0 [facility] Basophils (Bld) [#/Vol] 6.8 10*3/uL 2.0-7.7 [facility] Basophils/100 WBC (Bld) 74.4 % 47-70 [facility] Basophils/100 WBC (Bld) 1.9 % 0-5 [facility] Basophils/100 WBC (Bld) 0.4 % 0-1 [facility] Bilirubin [Mass/Vol] 0.70 mg/dL 0.20-1.00 [facility] Comment on above: For patients on eltr ombopag therapy, use of Dimension [place] TBIL is not recommended. Chloride [Moles/Vol] 106 mmol/L 98-107 [facility] Eosinophils/100 WBC (Bld) 1.9 % 0-5 [facility] Glucose [Mass/Vol] 144 mg/dL 74-106 [facility] Comment on above: Fasting Glucose resu lt greater than or equal to 126 mg/dL suggests DIABETES MELLITUS per A.D.A. criteria. Neutrophils (Bld) [#/Vol] 6.8 10*3/uL 2.0-7.7 [facility] Neutrophils/100 WBC (Bld) 74.4 % 47-70 [facility] Potassium [Moles/Vol] 4.2 mmol/L 3.5-5.1 [facility] Protein [Mass/Vol] 7.1 g/dL 6.4-8.2 [facility] Sodium [Moles/Vol] 139 mmol/L 136-145 [facility] WBC (Bld) [#/Vol] 9.1 10*3/uL 4.4-11.0 [facility] Blood erythrocytes count (nu mber/volume)Ordered By: Farhan Bonds on 08-18-2023 RBC (Bld) [#/Vol] 3.47 10*6/uL 4.6-6.2 [facility] Blood erythrocytes count (nu mber/volume)Ordered By: Jeremy Magallanes on 08-18-2023 RBC (Bld) [#/Vol] 3.42 10*6/uL 4.6-6.2 [facility] Blood hemoglobin measurement (mass/volume)Ordered By: Farhan Bonds on 08-18-2023 Hemoglobin (Bld) [Mass/Vol] 10.8 g/dL 13.0-16.5 [facility] Blood hemoglobin measurement (mass/volume)Ordered By: Jeremy Magallanes on 08-18-2023 Hemoglobin (Bld) [Mass/Vol] 10.9 g/dL 13.0-16.5 [facility] Blood lymphocytes/100 leukoc ytesOrdered By: Farhan Bonds on 08-18-2023 Lymphocytes/100 WBC (Bld) 17.6 % - [facility] Blood lymphocytes/100 leukoc ytesOrdered By: Jeremy Magallanes on 08-18-2023 Lymphocytes/100 WBC (Bld) 17.1 % [facility] Blood monocytes/100 leukocyt esOrdered By: Farhan Bonds on 08-18-2023 Monocytes/100 WBC (Bld) 6.4 % 0-10 [facility] Blood monocytes/100 leukocyt esOrdered By: Jeremy Magallanes on 08-18-2023 Monocytes/100 WBC (Bld) 5.9 % 0-10 [facility] Blood platelet mean volumeOr dered By: Farhan Bonds on 08-18-2023 Platelet mean volume (Bld) [Entitic vol] 11.3 fL 6.2-12.0 [facility] Blood platelet mean volumeOr dered By: Jeremy Magallanes on 08-18-2023 Platelet mean volume (Bld) [Entitic vol] 10.5 fL 6.2-12.0 [facility] Determination of erythrocyte mean corpuscular volume (MCV)Ordered By: Farhan Bonds on 08-18-2023 MCV (RBC) [Entitic vol] 98.8 fL 80-94 [facility] Determination of erythrocyte mean corpuscular volume (MCV)Ordered By: Jeremy Magallanes on 08-18-2023 MCV (RBC) [Entitic vol] 98.0 fL 80-94 [facility] Glucose Glucometer (BldC) [M ass/Vol]Ordered By: Jeremy Magallanes on 08-18-2023 Glucose [Mass/Vol] 147 mg/dL 74-106 [facility] Comment on above: MANAGEMENT OF PATIEN T CARE PER NURSING PROTOCOL HCO3 (BldA) [Moles/Vol]Order ed By: Patricia Alcantara on 08-18-2023 HCO3 (Bld) [Moles/Vol] 26 mmol/L 22-26 [facility] Hematocrit Auto (Bld) [Volum e fraction]Ordered By: Farhan Bonds on 08-18-2023 Hematocrit (Bld) [Volume fraction] 34.3 % 40-54 [facility] Hematocrit Auto (Bld) [Volum e fraction]Ordered By: Jeremy Magallanes on 08-18-2023 Hematocrit (Bld) [Volume fraction] 33.5 % 40-54 [facility] INR in Blood by Coagulation assayOrdered By: Patricia Alcantara on 08-18-2023 INR Coag (Bld) [Relative time] 1.6 {INR} [facility] Laboratory - Chemistry and C hemistry - challengeOrdered By: Patricia Alcantara on 08-18-2023 Magnesium [Mass/Vol] 1.9 mg/dL 1.6-2.6 [facility] Laboratory - Chemistry and C hemistry - challengeOrdered By: Farhan Bonds on 08-18-2023 CO2 [Moles/Vol] 29.0 mmol/L 21.0-32.0 [facility] Urea nitrogen/Creatinine [Mass ratio] 19.7 mg/mg 10-20 [facility] Laboratory - Chemistry and C hemistry - challengeOrdered By: Jeremy Magallanes on 08-18-2023 ALP [Catalytic activity/Vol] 130 U/L 45-117 [facility] ALT [Catalytic activity/Vol] 18 U/L 16-61 [facility] CO2 [Moles/Vol] 27.0 mmol/L 21.0-32.0 [facility] Globulin (S) [Mass/Vol] 4.1 g/dL 2.2-4.2 [facility] Urea nitrogen/Creatinine [Mass ratio] 19.5 mg/mg 10-20 [facility] Laboratory - CoagulationOrde red By: Patricia Alcantara on 08-18-2023 aPTT Coag (Bld) [Time] 40.0 s 24.1-36.2 [facility] PT Coag (PPP) [Time] 18.9 s 11.7-14.9 [facility] Laboratory - Hematology and Cell countsOrdered By: Farhan Bonds on 08-18-2023 Erythrocyte distribution width (RBC) [Entitic vol] 51.6 fL 35.1-43.9 [facility] Erythrocyte distribution width (RBC) [Ratio] 14.3 % 11.6-14.6 [facility] Immature granulocytes/100 WBC (Bld) 0.400 % 0.0-0.9 [facility] Comment on above: IG% - Immature Granu locytes (promyelocytes, myelocytes and metamyelocytes) > 1% indicates that a LEFT SHIFT is Present. MCH (RBC) [Entitic mass] 31.1 pg 27.0-32.0 [facility] Nucleated RBC/100 WBC (Bld) [Ratio] 0 % 0-5 [facility] Laboratory - Hematology and Cell countsOrdered By: Jeremy Magallanes on 08-18-2023 Erythrocyte distribution width (RBC) [Entitic vol] 50.4 fL 35.1-43.9 [facility] Erythrocyte distribution width (RBC) [Ratio] 14.0 % 11.6-14.6 [facility] Immature granulocytes/100 WBC (Bld) 0.300 % 0.0-0.9 [facility] Comment on above: IG% - Immature Granu locytes (promyelocytes, myelocytes and metamyelocytes) > 1% indicates that a LEFT SHIFT is Present. MCH (RBC) [Entitic mass] 31.9 pg 27.0-32.0 [facility] Nucleated RBC/100 WBC (Bld) [Ratio] 0 % 0-5 [facility] MCHC Auto (RBC) [Mass/Vol]Or dered By: Farhan Bonds on 08-18-2023 MCHC (RBC) [Mass/Vol] 31.5 g/dL 32-[facility] ([facility] [Mass/Vol]Or dered By: Jeremy Magallanes on 08-18-2023 MCHC (RBC) [Mass/Vol] 32.5 g/dL 32-36 [facility] No Panel InformationOrdered By: Patricia Alcantara on 08-18-2023 AYE [facility] Not entered [facility] Cannula [facility] 4.0 [facility] 47.0 mmHg 41-51 [facility] 1 mmol/L -1.0-3.5 [facility] 52 % 50-70 [facility] 28 mmol/L 23-33 [facility] 18.9 SECONDS 11.7-14.9 [facility] 40.0 Seconds 24.1-36.2 [facility] 1.9 mg/dL 1.6-2.6 [facility] No Panel InformationOrdered By: Farhan Bonds on 08-18-2023 Estimated Creatinine Clearance Calc 22.22 ml/min [facility] Estimated GFR (MDRD) Amer 36 mL/min >60 [facility] Comment on above: GFR Calc Estimated GFR (MDRD) Non-Af Amer 30 mL/min >60 [facility] Comment on above: Non- GFR Calc Troponin I High Sensitivity 78 pg/mL 3.0-78.0 [facility] Comment on above: Please Note: New Meghana t Units and Gender Specific Reference Ranges. For more information see Policy Stat Procedure [place] High Sensitivity Troponin (TNIH) and attachments. 31.1 pg 27.0-32.0 [facility] 14.3 % 11.6-14.6 [facility] 51.6 fl 35.1-43.9 [facility] 0.400 % 0.0-0.9 [facility] 0 % 0-5 [facility] 30 mL/min >60 [facility] 36 mL/min >60 [facility] 22.22 ml/min [facility] 19.7 RATIO 10-20 [facility] 78 pg/mL 3.0-78.0 [facility] 29.0 mmol/L 21.0-32.0 [facility] No Panel InformationOrdered By: Jeremy Magallanes on 08-18-2023 Estimated Creatinine Clearance Calc 22.52 ml/min [facility] Estimated GFR (MDRD) Amer 37 mL/min >60 [facility] Comment on above: GFR Calc Estimated GFR (MDRD) Non-Af Amer 31 mL/min >60 [facility] Comment on above: Non- GFR Calc 31.9 pg 27.0-32.0 [facility] 14.0 % 11.6-14.6 [facility] 50.4 fl 35.1-43.9 [facility] 0.300 % 0.0-0.9 [facility] 0 % 0-5 [facility] 31 mL/min >60 [facility] 37 mL/min >60 [facility] 22.52 ml/min [facility] 19.5 RATIO 10-20 [facility] 4.1 g/dL 2.2-4.2 [facility] 130 U/L 45-117 [facility] 18 U/L 16-61 [facility] 27.0 mmol/L 21.0-32.0 [facility] PO2 venousOrdered By: Patricia Alcantara on 08-18-2023 Oxygen (BldV) [Partial pressure] 29 mm[Hg] 25-40 [facility] Platelets bldOrdered By: Mariusz Bonds on 08-18-2023 Platelets (Bld) [#/Vol] 153 10*3/uL 150-450 [facility] Platelets bldOrdered By: Jeremy Magallanes on 08-18-2023 Platelets (Bld) [#/Vol] 147 10*3/uL 150-450 [facility] Serum or plasma albumin aubree urement (mass/volume)Ordered By: Jeremy Magallanes on 08-18-2023 Albumin [Mass/Vol] 3.0 g/dL 3.2-5.0 [facility] Serum or plasma albumin/glob ulin mass ratioOrdered By: Jeremy Magallanes on 08-18-2023 Albumin/Globulin [Mass ratio] 0.7 {ratio} 0.9-2.4 [facility] Serum or plasma calcium aubree urement (mass/volume)Ordered By: Farhan Bonds on 08-18-2023 Calcium [Mass/Vol] 9.6 mg/dL 8.5-10.1 [facility] Serum or plasma calcium aubree urement (mass/volume)Ordered By: Jeremy Magallanes on 08-18-2023 Calcium [Mass/Vol] 9.4 mg/dL 8.5-10.1 [facility] Serum or plasma creatinine m easurement (mass/volume)Ordered By: Farhan Bonds on 08-18-2023 Creatinine [Mass/Vol] 2.23 mg/dL 0.70-1.30 [facility] Comment on above: The validity of the calculated GFR & GFRAA in patients over 70 years has not been determined. Clinical correlation is essential. Serum or plasma creatinine m easurement (mass/volume)Ordered By: Jeremy Magallanes on 08-18-2023 Creatinine [Mass/Vol] 2.20 mg/dL 0.70-1.30 [facility] Comment on above: The validity of the calculated GFR & GFRAA in patients over 70 years has not been determined. Clinical correlation is essential. Serum or plasma urea nitroge n measurement (mass/volume)Ordered By: Farhan Bonds on 08-18-2023 Urea nitrogen [Mass/Vol] 44 mg/dL 06-14 [facility] Serum or plasma urea nitroge n measurement (mass/volume)Ordered By: Jeremy Magallanes on 08-18-2023 Urea nitrogen [Mass/Vol] 43 mg/dL 06-14 [facility] Thin prep Papanicolaou smear with manual screeningOrdered By: Farhan Bonds on 08-18-2023 Thin prep Papanicolaou smear with manual screening 3 5-15 [facility] Thin prep Papanicolaou smear with manual screeningOrdered By: Jeremy Magallanes on 08-18-2023 Thin prep Papanicolaou smear with manual screening 18 U/L 15-37 [facility] Thin prep Papanicolaou smear with manual screening 6 5-15 [facility] pH measurementOrdered By: Dia Alcantara on 08-18-2023 pH (Unsp spec) 7.36 [pH] 7.32-7.42 [facility] COVID-19 virus antigen assay Ordered By: Jeremy Magallanes on 08-17-2023 SARS-CoV-2 (COVID-19) Ag IA.rapid Ql (Resp) [facility] SARS-CoV-2 (COVID-19) Ag IA.rapid Ql (Resp) [facility] Glucose Glucometer (BldC) [M ass/Vol]Ordered By: Jeremy Magallanes on 08-11-2023 Glucose [Mass/Vol] 105 mg/dL 74-106 [facility] Comment on above: MANAGEMENT OF PATIEN T CARE PER NURSING PROTOCOL Absolute lymphocyte countOrd ered By: Jeremy Magallanes on 08-10-2023 Lymphocytes Auto (Unsp spec) [#/Vol] 1.95 10*3/uL 0.83-4.51 [facility] Basophil percentageOrdered B y: Jeremy Magallanes on 08-10-2023 Basophils/100 WBC (Bld) 0.5 % 0-1 [facility] Chloride [Moles/Vol] 106 mmol/L 98-107 [facility] Eosinophils/100 WBC (Bld) 2.2 % 0-5 [facility] Glucose [Mass/Vol] 188 mg/dL 74-106 [facility] Comment on above: Fasting Glucose resu lt greater than or equal to 126 mg/dL suggests DIABETES MELLITUS per A.D.A. criteria. Neutrophils (Bld) [#/Vol] 6.0 10*3/uL 2.0-7.7 [facility] Neutrophils/100 WBC (Bld) 69.3 % 47-70 [facility] Potassium [Moles/Vol] 4.1 mmol/L 3.5-5.1 [facility] Sodium [Moles/Vol] 138 mmol/L 136-145 [facility] WBC (Bld) [#/Vol] 8.7 10*3/uL 4.4-11.0 [facility] Blood erythrocytes count (nu mber/volume)Ordered By: Jeremy Magallanes on 08-10-2023 RBC (Bld) [#/Vol] 3.49 10*6/uL 4.6-6.2 [facility] Blood hemoglobin measurement (mass/volume)Ordered By: Jeremy Magallanes on 08-10-2023 Hemoglobin (Bld) [Mass/Vol] 10.9 g/dL 13.0-16.5 [facility] Blood lymphocytes/100 leukoc ytesOrdered By: Jeremy Magallanes on 08-10-2023 Lymphocytes/100 WBC (Bld) 22.5 % 19-41 [facility] Blood monocytes/100 leukocyt esOrdered By: Jeremy Magallanes on 08-10-2023 Monocytes/100 WBC (Bld) 5.2 % 0-10 [facility] Blood platelet mean volumeOr dered By: Jeremy Magallanes on 08-10-2023 Platelet mean volume (Bld) [Entitic vol] 10.6 fL 6.2-12.0 [facility] Determination of erythrocyte mean corpuscular volume (MCV)Ordered By: Jeremy Magallanes on 08-10-2023 MCV (RBC) [Entitic vol] 99.7 fL 80-94 [facility] Hematocrit Auto (Bld) [Volum e fraction]Ordered By: Jeremy Elpidio on 08-10-2023 Hematocrit (Bld) [Volume fraction] 34.8 % 40-54 [facility] Laboratory - Chemistry and C hemistry - challengeOrdered By: Jeremy Elpidio 08-10-2023 CO2 [Moles/Vol] 26.0 mmol/L 21.0-32.0 [facility] Urea nitrogen/Creatinine [Mass ratio] 22.1 mg/mg 10-20 [facility] Laboratory - Hematology and Cell countsOrdered By: Jeremy Magallanes 08-10-2023 Erythrocyte distribution width (RBC) [Entitic vol] 51.8 fL 35.1-43.9 [facility] Erythrocyte distribution width (RBC) [Ratio] 14.4 % 11.6-14.6 [facility] Immature granulocytes/100 WBC (Bld) 0.300 % 0.0-0.9 [facility] Comment on above: IG% - Immature Granu locytes (promyelocytes, myelocytes and metamyelocytes) > 1% indicates that a LEFT SHIFT is Present. MCH (RBC) [Entitic mass] 31.2 pg 27.0-32.0 [facility] Nucleated RBC/100 WBC (Bld) [Ratio] 0 % 0-5 [facility] MCHC Auto (RBC) [Mass/Vol]Or dered By: Jeremy Magallanes on 08-10-2023 MCHC (RBC) [Mass/Vol] 31.3 g/dL 32-36 [facility] No Panel InformationOrdered By: Jeremy Magallanes on 08-10-2023 Estimated Creatinine Clearance Calc 21.08 ml/min [facility] Estimated GFR (MDRD) Amer 34 mL/min >60 [facility] Comment on above: GFR Calc Estimated GFR (MDRD) Non-Af Amer 28 mL/min >60 [facility] Comment on above: Non- GFR Calc Platelets bldOrdered By: Jeremy Magallanes on 08-10-2023 Platelets (Bld) [#/Vol] 136 10*3/uL 150-450 [facility] Serum or plasma calcium aubree urement (mass/volume)Ordered By: Jeremy Magallanes on 08-10-2023 Calcium [Mass/Vol] 9.7 mg/dL 8.5-10.1 [facility] Serum or plasma creatinine m easurement (mass/volume)Ordered By: Jeremy Magallanes on 08-10-2023 Creatinine [Mass/Vol] 2.35 mg/dL 0.70-1.30 [facility] Comment on above: The validity of the calculated GFR & GFRAA in patients over 70 years has not been determined. Clinical correlation is essential. Serum or plasma urea nitroge n measurement (mass/volume)Ordered By: Jeremy Magallanes on 08-10-2023 Urea nitrogen [Mass/Vol] 52 mg/dL 7-18 [facility] Thin prep Papanicolaou smear with manual screeningOrdered By: Jeremy Magallanes on 08-10-2023 Thin prep Papanicolaou smear with manual screening 6 5-15 [facility] COVID-19 virus antigen assay Ordered By: Jeremy Magallanes on 08-09-2023 SARS-CoV-2 (COVID-19) Ag IA.rapid Ql (Resp) [facility] Glucose Glucometer (BldC) [M ass/Vol]Ordered By: Jeremy Magallanes on 07-27-2023 Glucose [Mass/Vol] 83 mg/dL 74-106 [facility] Comment on above: MANAGEMENT OF PATIEN T CARE PER NURSING PROTOCOL Absolute lymphocyte countOrd ered By: Jeremy Magallanes on 07-25-2023 Lymphocytes Auto (Unsp spec) [#/Vol] 1.42 10*3/uL 0.83-4.51 [facility] Basophil percentageOrdered B y: Jeremy Magallanes on 07-25-2023 Basophils/100 WBC (Bld) 0.5 % 0-1 [facility] Chloride [Moles/Vol] 114 mmol/L 98-107 [facility] Eosinophils/100 WBC (Bld) 4.1 % 0-5 [facility] Glucose [Mass/Vol] 92 mg/dL 74-106 [facility] Neutrophils (Bld) [#/Vol] 5.4 10*3/uL 2.0-7.7 [facility] Neutrophils/100 WBC (Bld) 69.0 % 47-70 [facility] Potassium [Moles/Vol] 4.3 mmol/L 3.5-5.1 [facility] Sodium [Moles/Vol] 142 mmol/L 136-145 [facility] WBC (Bld) [#/Vol] 7.8 10*3/uL 4.4-11.0 [facility] Blood erythrocytes count (nu mber/volume)Ordered By: Jeremy Magallanes on 07-25-2023 RBC (Bld) [#/Vol] 2.97 10*6/uL 4.6-6.2 [facility] Blood hemoglobin measurement (mass/volume)Ordered By: Jeremy Magallanes on 07-25-2023 Hemoglobin (Bld) [Mass/Vol] 9.6 g/dL 13.0-16.5 [facility] Blood lymphocytes/100 leukoc ytesOrdered By: Jeremy Magallanes on 07-25-2023 Lymphocytes/100 WBC (Bld) 18.2 % 19-41 [facility] Blood monocytes/100 leukocyt esOrdered By: Jeremy Magallanes on 07-25-2023 Monocytes/100 WBC (Bld) 7.8 % 0-10 [facility] Blood platelet mean volumeOr dered By: Jeremy Magallanes on 07-25-2023 Platelet mean volume (Bld) [Entitic vol] 10.7 fL 6.2-12.0 [facility] Determination of erythrocyte mean corpuscular volume (MCV)Ordered By: Jeremy Magallanes on 07-25-2023 MCV (RBC) [Entitic vol] 99.0 fL 80-94 [facility] Hematocrit Auto (Bld) [Volum e fraction]Ordered By: Jeremy Magallanes on 07-25-2023 Hematocrit (Bld) [Volume fraction] 29.4 % 40-54 [facility] Laboratory - Chemistry and C hemistry - challengeOrdered By: Jeremy Magallanes on 07-25-2023 CO2 [Moles/Vol] 23.0 mmol/L 21.0-32.0 [facility] Urea nitrogen/Creatinine [Mass ratio] 27.4 mg/mg 10-20 [facility] Laboratory - Hematology and Cell countsOrdered By: Jeremy Magallanes on 07-25-2023 Erythrocyte distribution width (RBC) [Entitic vol] 55.1 fL 35.1-43.9 [facility] Erythrocyte distribution width (RBC) [Ratio] 15.3 % 11.6-14.6 [facility] Immature granulocytes/100 WBC (Bld) 0.400 % 0.0-0.9 [facility] Comment on above: IG% - Immature Granu locytes (promyelocytes, myelocytes and metamyelocytes) > 1% indicates that a LEFT SHIFT is Present. MCH (RBC) [Entitic mass] 32.3 pg 27.0-32.0 [facility] Nucleated RBC/100 WBC (Bld) [Ratio] 0 % 0-5 [facility] MCHC Auto (RBC) [Mass/Vol]Or dered By: Jeremy Magallanes on 07-25-2023 MCHC (RBC) [Mass/Vol] 32.7 g/dL 32-36 [facility] Comment on above: Delta: 31.1 on 07/21 No Panel InformationOrdered By: Jeremy Magallanes on 07-25-2023 Estimated Creatinine Clearance Calc 20.90 ml/min [facility] Estimated GFR (MDRD) Amer 34 mL/min >60 [facility] Comment on above: GFR Calc Estimated GFR (MDRD) Non-Af Amer 28 mL/min >60 [facility] Comment on above: Non- GFR Calc Platelets bldOrdered By: Jeremy Magallanes on 07-25-2023 Platelets (Bld) [#/Vol] 135 10*3/uL 150-450 [facility] Serum or plasma calcium aubree urement (mass/volume)Ordered By: Jeremy Magallanes on 07-25-2023 Calcium [Mass/Vol] 9.1 mg/dL 8.5-10.1 [facility] Serum or plasma creatinine m easurement (mass/volume)Ordered By: Jeremy Magallanes on 07-25-2023 Creatinine [Mass/Vol] 2.37 mg/dL 0.70-1.30 [facility] Comment on above: The validity of the calculated GFR & GFRAA in patients over 70 years has not been determined. Clinical correlation is essential. Serum or plasma urea nitroge n measurement (mass/volume)Ordered By: Jeremy Magallanes on 07-25-2023 Urea nitrogen [Mass/Vol] 65 mg/dL 7-18 [facility] Thin prep Papanicolaou smear with manual screeningOrdered By: Jeremy Magallanes on 07-25-2023 Thin prep Papanicolaou smear with manual screening 5 5-15 [facility] Basophil percentageOrdered B y: Jeremy Magallanes on 07-21-2023 Basophil percentage 0-5 SEEN /hpf 0-5 [facility] Bilirubin Test strip Ql (U)O rdered By: Jeremy Magallanes on 07-21-2023 Bilirubin Ql (U) Negative Negative [facility] Culture, urineOrdered By: Jono Magallanes on 07-21-2023 Bacteria identified Cx Nom (U) Culture exhibits no growth. [facility] Bacteria identified Cx Nom (U) Culture exhibits no growth. [facility] Ketones Test strip Ql (U)Ord ered By: Jeremy Magallanes on 07-21-2023 Ketones Ql (U) Negative Negative [facility] Mucus LM Ql (Urine sed)Order ed By: Jeremy Magallanes on 07-21-2023 Mucus Ql (Urine sed) 0 SEEN /hpf [facility] Nitrite Test strip Ql (U)Ord ered By: Jeremy Magallanes on 07-21-2023 Nitrite Ql (U) Negative Negative [facility] Protein Test strip Ql (U)Ord ered By: Jeremy Magallanes on 07-21-2023 Protein Ql (U) 30 mg/dl Negative [facility] Squamous epithelial cells de tection in urine sediment by light microscopyOrdered By: Jeremy Magallanes on 07-21-2023 Epithelial cells.squamous LM Ql (Urine sed) 0 SEEN /hpf 0-5 [facility] Urine blood detectionOrdered By: Jeremy Magallanes on 07-21-2023 RBC Ql (U) Negative Negative [facility] RBC Ql (U) 0 SEEN /hpf 0-5 [facility] Urine clarityOrdered By: Jeremy Magallanes on 07-21-2023 Clarity (U) Clear Clear [facility] Urine color determinationOrd ered By: Jeremy Magallanes on 07-21-2023 Color (U) Yellow Yellow [facility] Urine glucose detectionOrder ed By: Jeremy Magallanes on 07-21-2023 Glucose Ql (U) Normal mg/dl Normal [facility] Urine leukocyte esterase det ection by dipstickOrdered By: Jeremy Magallanes on 07-21-2023 Leukocyte esterase Test strip Ql (U) Negative Negative [facility] Urine pHOrdered By: Jeremy Magallanes on 07-21-2023 pH (U) 5.0 [pH] 5.0 - 8.0 [facility] Urine sediment bacteria coun t by microscopy (number/high power field)Ordered By: Jeremy Magallanes on 07-21-2023 Bacteria LM.HPF (Urine sed) [#/Area] 0 /[HPF] None Seen [facility] Urine specific gravity measu rementOrdered By: Jeremy Magallanes on 07-21-2023 Specific gravity (U) [Rel density] 1.015 1.002-1.030 [facility] Urobilinogen Auto test strip Ql (U)Ordered By: Jeremy Magallanes on 07-21-2023 Urobilinogen Ql (U) Normal mg/dl Normal [facility] Laboratory - Chemistry and C hemistry - challengeOrdered By: Jeremy Magallanes on 07-12-2023 Natriuretic peptide B (Bld) [Mass/Vol] 174.5 pg/mL 0-100 [facility] No Panel InformationOrdered By: Jeremy Magallanes on 07-12-2023 174.5 pg/mL 0-100 [facility] Levetiracetam (Keppra) Level 39.0 ug/mL 10.0-40.0 [facility] Comment on above: Performed at: - [address] [id number] Director: Suzy Adames MD, Phone: [phone] 39.0 ug/mL 10.0-40.0 [facility] Absolute lymphocyte countOrd ered By: Jeremy Magallanes on 07-11-2023 Lymphocytes Auto (Unsp spec) [#/Vol] 0.89 10*3/uL 0.83-4.51 [facility] Basophil percentageOrdered B y: Jeremy Magallanes on 07-11-2023 Basophil percentage 141 mg/dL 74-106 [facility] Basophil percentage 136 mmol/L 136-145 [facility] Basophil percentage 5.0 mmol/L 3.5-5.1 [facility] Basophil percentage 109 mmol/L 98-107 [facility] Basophils (Bld) [#/Vol] 9.1 10*3/uL 4.4-11.0 [facility] Basophils (Bld) [#/Vol] 7.0 10*3/uL 2.0-7.7 [facility] Basophils/100 WBC (Bld) 76.7 % 47-70 [facility] Basophils/100 WBC (Bld) 3.2 % 0-5 [facility] Basophils/100 WBC (Bld) 0.4 % 0-1 [facility] Blood erythrocytes count (nu mber/volume)Ordered By: Jeremy Magallanes on 07-11-2023 RBC (Bld) [#/Vol] 3.18 10*6/uL 4.6-6.2 [facility] Blood hemoglobin measurement (mass/volume)Ordered By: Jeremy Magallanes on 07-11-2023 Hemoglobin (Bld) [Mass/Vol] 10.2 g/dL 13.0-16.5 [facility] Blood lymphocytes/100 leukoc ytesOrdered By: Jeremy Magallanes on 07-11-2023 Lymphocytes/100 WBC (Bld) 9.8 % 19-41 [facility] Blood monocytes/100 leukocyt esOrdered By: Jeremy Magallanes on 07-11-2023 Monocytes/100 WBC (Bld) 9.5 % 0-10 [facility] Blood platelet mean volumeOr dered By: Jeremy Magallanes on 07-11-2023 Platelet mean volume (Bld) [Entitic vol] 10.5 fL 6.2-12.0 [facility] Determination of erythrocyte mean corpuscular volume (MCV)Ordered By: Jeremy Magallanes on 07-11-2023 MCV (RBC) [Entitic vol] 100.0 fL 80-94 [facility] Glucose Glucometer (BldC) [M ass/Vol]Ordered By: Jeremy Magallanes on 07-11-2023 Glucose [Mass/Vol] 132 mg/dL 74-106 [facility] Hematocrit Auto (Bld) [Volum e fraction]Ordered By: Jeremy Magallanes on 07-11-2023 Hematocrit (Bld) [Volume fraction] 31.8 % 40-54 [facility] MCHC Auto (RBC) [Mass/Vol]Or dered By: Jeremy Magallanes on 07-11-2023 MCHC (RBC) [Mass/Vol] 32.1 g/dL 32-36 [facility] No Panel InformationOrdered By: Jeremy Magallanes on 07-11-2023 32.1 pg 27.0-32.0 [facility] 15.2 % 11.6-14.6 [facility] 53.7 fl 35.1-43.9 [facility] 0.400 % 0.0-0.9 [facility] 0 % 0-5 [facility] 28 mL/min >60 [facility] 33 mL/min >60 [facility] 20.56 ml/min [facility] 27.8 RATIO 10-20 [facility] 20.0 mmol/L 21.0-32.0 [facility] Platelets bldOrdered By: Jeremy Magallanes on 07-11-2023 Platelets (Bld) [#/Vol] 161 10*3/uL 150-450 [facility] Serum or plasma calcium aubree urement (mass/volume)Ordered By: Jeremy Magallanes on 07-11-2023 Calcium [Mass/Vol] 9.0 mg/dL 8.5-10.1 [facility] Serum or plasma creatinine m easurement (mass/volume)Ordered By: Jeremy Magallanes on 07-11-2023 Creatinine [Mass/Vol] 2.41 mg/dL 0.70-1.30 [facility] Serum or plasma urea nitroge n measurement (mass/volume)Ordered By: Jeremy Magallanes on 07-11-2023 Urea nitrogen [Mass/Vol] 67 mg/dL 7-18 [facility] [facility] Th[facility] Papanicolaou smear with manual screeningOrdered By: Jeremy Magallanes on 07-11-2023 Thin prep Papanicolaou smear with manual screening 7 5-15 [facility] Basophil percentageOrdered B y: Jeremy Magallanes on 07-08-2023 Basophil percentage 6.7 g/dL 6.4-8.2 [facility] Basophil percentage 1.10 mg/dL 0.20-1.00 [facility] Bilirubin [Mass/Vol] 1.10 mg/dL 0.20-1.00 [facility] Comment on above: For patients on eltr ombopag therapy, use of Dimension [place] TBIL is not recommended. Protein [Mass/Vol] 6.7 g/dL 6.4-8.2 [facility] Laboratory - Chemistry and C hemistry - challengeOrdered By: Jeremy Magallanes on 07-08-2023 ALP [Catalytic activity/Vol] 144 U/L 45- [facility] ALT [Catalytic activity/Vol] 19 U/L [facility] Globulin (S) [Mass/Vol] 4.0 g/dL 2.2-4.2 [facility] No Panel InformationOrdered By: Jeremy Magallanes on 07-08-2023 4.0 g/dL 2.2-4.2 [facility] 144 U/L -117 [facility] 19 U/L [facility] 329.5 pg/mL 0-100 [facility] Serum or plasma albumin aubree urement (mass/volume)Ordered By: Jeremy Magallanes on 07-08-2023 Albumin [Mass/Vol] 2.7 g/dL 3.2-5.0 [facility] Serum or plasma albumin/glob ulin mass ratioOrdered By: Jeremy Magallanes on 07-08-2023 Albumin/Globulin [Mass ratio] 0.7 {ratio} 0.9-2.4 [facility] Thin prep Papanicolaou smear with manual screeningOrdered By: Jeremy Magallanes on 07-08-2023 Thin prep Papanicolaou smear with manual screening 20 U/L 15-37 [facility] Basophil percentageOrdered B y: Jeremy Magallanes on 07-07-2023 Basophil percentage 0 SEEN /hpf 0-5 [facility] Bilirubin Test strip Ql (U)O rdered By: Jeremy Magallanes on 07-07-2023 Bilirubin Ql (U) Negative Negative [facility] Culture, urineOrdered By: Jono Magallanes on 07-07-2023 Bacteria identified Cx Nom (U) Culture exhibits no growth. [facility] Ketones Test strip Ql (U)Ord ered By: Jeremy Magallanes on 07-07-2023 Ketones Ql (U) Negative Negative [facility] Mucus LM Ql (Urine sed)Order ed By: Jeremy Magallanes on 07-07-2023 Mucus Ql (Urine sed) 0 SEEN /hpf [facility] Nitrite Test strip Ql (U)Ord ered By: Jeremy Magallanes on 07-07-2023 Nitrite Ql (U) Negative Negative [facility] Protein Test strip Ql (U)Ord ered By: Jeremy Magallanes on 07-07-2023 Protein Ql (U) 100 mg/dl Negative [facility] Squamous epithelial cells de tection in urine sediment by light microscopyOrdered By: Jeremy Magallanes on 07-07-2023 Epithelial cells.squamous LM Ql (Urine sed) 0 SEEN /hpf 0-5 [facility] Urine blood detectionOrdered By: Jeremy Magallanes on 07-07-2023 RBC Ql (U) 250 /ul Negative [facility] RBC Ql (U) 5-10 SEEN /hpf 0-5 [facility] Urine clarityOrdered By: Jeremy Magallanes on 07-07-2023 Clarity (U) Clear Clear [facility] Urine color determinationOrd ered By: Jeremy Magallanes on 07-07-2023 Color (U) Yellow Yellow [facility] Urine glucose detectionOrder ed By: Jeremy Magallanes on 07-07-2023 Glucose Ql (U) Normal mg/dl Normal [facility] Urine leukocyte esterase det ection by dipstickOrdered By: Jeremy Magallanes 07-07-2023 Leukocyte esterase Test strip Ql (U) Negative Negative [facility] Urine pHOrdered By: Jeremy Magallanes on 07-07-2023 pH (U) 6.0 [pH] 5.0 - 8.0 [facility] Urine sediment bacteria coun t by microscopy (number/high power field)Ordered By: Jeremy Magallanes on 07-07-2023 Bacteria LM.HPF (Urine sed) [#/Area] 0 /[HPF] None Seen [facility] Urine specific gravity measu rementOrdered By: Jeremy Magallanes on 07-07-2023 Specific gravity (U) [Rel density] 1.015 1.002-1.030 [facility] Urobilinogen Auto test strip Ql (U)Ordered By: Jeremy Magallanes on 07-07-2023 Urobilinogen Ql (U) Normal mg/dl Normal [facility] No Panel InformationOrdered By: Jeremy Magallanes on 07-06-2023 Vitamin D 25-Hydroxy 42.3 ng/mL [facility] Comment on above: Vitamin D 25(OH) Sta tus Range Deficiency <20 ng/mL (50nmol/L) Insufficiency 20 - 30 ng/mL (50 - 75 nmol/L) Sufficiency 30 - 100 ng/mL (75 - 250 nmol/L) Toxicity >100 ng/mL (>250 nmol/L) 42.3 ng/mL [facility] Stool gastrointestinal hemog lobin detection by immunologic methodOrdered By: Jeremy Magallanes on 07-06-2023 Lower GI hemoglobin IA Ql (Stl) [facility] Stool gastrointestinal hemog lobin detection by immunologic methodOrdered By: Jeremy Magallanes on 07-05-2023 Lower GI hemoglobin IA Ql (Stl) [facility] Glucose Glucometer (BldC) [M ass/Vol]Ordered By: Woody Brunson on 07-03-2023 Glucose [Mass/Vol] 180 mg/dL 74-106 [facility] Comment on above: MANAGEMENT OF PATIEN T CARE PER NURSING PROTOCOL Absolute lymphocyte countOrd ered By: Woody Brunson on 07-01-2023 Lymphocytes Auto (Unsp spec) [#/Vol] 1.34 10*3/uL 0.83-4.51 [facility] Basophil percentageOrdered B y: Woody Brunson on 07-01-2023 Basophil percentage 129 mg/dL 74-106 [facility] Basophil percentage 7.2 g/dL 6.4-8.2 [facility] Basophil percentage 1.50 mg/dL 0.20-1.00 [facility] Basophil percentage 139 mmol/L 136-145 [facility] Basophil percentage 4.4 mmol/L 3.5-5.1 [facility] Basophil percentage 109 mmol/L 98-107 [facility] Basophils (Bld) [#/Vol] 9.3 10*3/uL 4.4-11.0 [facility] Basophils (Bld) [#/Vol] 7.1 10*3/uL 2.0-7.7 [facility] Basophils/100 WBC (Bld) 0.4 % 0-1 [facility] Basophils/100 WBC (Bld) 76.6 % 47-70 [facility] Basophils/100 WBC (Bld) 0.6 % 0-5 [facility] Bilirubin [Mass/Vol] 1.50 mg/dL 0.20-1.00 [facility] Comment on above: For patients on eltr ombopag therapy, use of Dimension [place] TBIL is not recommended. Chloride [Moles/Vol] 109 mmol/L 98-107 [facility] Eosinophils/100 WBC (Bld) 0.6 % 0-5 [facility] Glucose [Mass/Vol] 129 mg/dL 74-106 [facility] Comment on above: Fasting Glucose resu lt greater than or equal to 126 mg/dL suggests DIABETES MELLITUS per A.D.A. criteria. Neutrophils (Bld) [#/Vol] 7.1 10*3/uL 2.0-7.7 [facility] Neutrophils/100 WBC (Bld) 76.6 % 47-70 [facility] Potassium [Moles/Vol] 4.4 mmol/L 3.5-5.1 [facility] Protein [Mass/Vol] 7.2 g/dL 6.4-8.2 [facility] Sodium [Moles/Vol] 139 mmol/L 136-145 [facility] WBC (Bld) [#/Vol] 9.3 10*3/uL 4.4-11.0 [facility] Blood erythrocytes count (nu mber/volume)Ordered By: Woody Brunson on 07-01-2023 RBC (Bld) [#/Vol] 3.55 10*6/uL 4.6-6.2 [facility] Blood hemoglobin measurement (mass/volume)Ordered By: Woody Brunson on 07-01-2023 Hemoglobin (Bld) [Mass/Vol] 11.4 g/dL 13.0-16.5 [facility] Blood lymphocytes/100 leukoc ytesOrdered By: Woody Brunson on 07-01-2023 Lymphocytes/100 WBC (Bld) 14.4 % 19-41 [facility] Blood monocytes/100 leukocyt esOrdered By: Woody Brunson on 07-01-2023 Monocytes/100 WBC (Bld) 7.7 % 0-10 [facility] Blood platelet mean volumeOr dered By: Woody Brunson on 07-01-2023 Platelet mean volume (Bld) [Entitic vol] 11.0 fL 6.2-12.0 [facility] Determination of erythrocyte mean corpuscular volume (MCV)Ordered By: Woody Brunson on 07-01-2023 MCV (RBC) [Entitic vol] 98.0 fL 80-94 [facility] Hematocrit Auto (Bld) [Volum e fraction]Ordered By: Woody Brunson on 07-01-2023 Hematocrit (Bld) [Volume fraction] 34.8 % 40-54 [facility] Laboratory - Chemistry and C hemistry - challengeOrdered By: Woody Brunson on 07-01-2023 ALP [Catalytic activity/Vol] 134 U/L 45-117 [facility] ALT [Catalytic activity/Vol] 14 U/L 16-61 [facility] CO2 [Moles/Vol] 25.0 mmol/L 21.0-32.0 [facility] Globulin (S) [Mass/Vol] 4.1 g/dL 2.2-4.2 [facility] Urea nitrogen/Creatinine [Mass ratio] 20.8 mg/mg 10-20 [facility] Laboratory - Hematology and Cell countsOrdered By: Woody Brunson on 07-01-2023 Erythrocyte distribution width (RBC) [Entitic vol] 51.6 fL 35.1-43.9 [facility] Erythrocyte distribution width (RBC) [Ratio] 14.3 % 11.6-14.6 [facility] Immature granulocytes/100 WBC (Bld) 0.300 % 0.0-0.9 [facility] Comment on above: IG% - Immature Granu locytes (promyelocytes, myelocytes and metamyelocytes) > 1% indicates that a LEFT SHIFT is Present. MCH (RBC) [Entitic mass] 32.1 pg 27.0-32.0 [facility] Nucleated RBC/100 WBC (Bld) [Ratio] 0 % 0-5 [facility] MCHC Auto (RBC) [Mass/Vol]Or dered By: Woody Brunson on 07-01-2023 MCHC (RBC) [Mass/Vol] 32.8 g/dL 32-36 [facility] No Panel InformationOrdered By: Woody Brunson on 07-01-2023 Estimated Creatinine Clearance Calc 23.37 ml/min [facility] Estimated GFR (MDRD) Amer 39 mL/min >60 [facility] Comment on above: GFR Calc Estimated GFR (MDRD) Non-Af Amer 32 mL/min >60 [facility] Comment on above: Non- GFR Calc 32.1 pg 27.0-32.0 [facility] 14.3 % 11.6-14.6 [facility] 51.6 fl 35.1-43.9 [facility] 0.300 % 0.0-0.9 [facility] 0 % 0-5 [facility] 32 mL/min >60 [facility] 39 mL/min >60 [facility] 23.37 ml/min [facility] 20.8 RATIO 10-20 [facility] 4.1 g/dL 2.2-4.2 [facility] 134 U/L 45-117 [facility] 14 U/L 16-61 [facility] 25.0 mmol/L 21.0-32.0 [facility] Platelets bldOrdered By: Ksenia Brunson on 07-01-2023 Platelets (Bld) [#/Vol] 116 10*3/uL 150-450 [facility] Serum or plasma albumin aubree urement (mass/volume)Ordered By: Woody Brunson on 07-01-2023 Albumin [Mass/Vol] 3.1 g/dL 3.2-5.0 [facility] Serum or plasma albumin/glob ulin mass ratioOrdered By: Woody Brunson on 07-01-2023 Albumin/Globulin [Mass ratio] 0.8 {ratio} 0.9-2.4 [facility] Serum or plasma calcium aubree urement (mass/volume)Ordered By: Woody Brunson on 07-01-2023 Calcium [Mass/Vol] 9.0 mg/dL 8.5-10.1 [facility] Serum or plasma creatinine m easurement (mass/volume)Ordered By: Woody Brunson on 07-01-2023 Creatinine [Mass/Vol] 2.12 mg/dL 0.70-1.30 [facility] Comment on above: The validity of the calculated GFR & GFRAA in patients over 70 years has not been determined. Clinical correlation is essential. Serum or plasma urea nitroge n measurement (mass/volume)Ordered By: Woody Brunson on 07-01-2023 Urea nitrogen [Mass/Vol] 44 mg/dL 7-18 [facility] Thin prep Papanicolaou smear with manual screeningOrdered By: Woody Brunson on 07-01-2023 Thin prep Papanicolaou smear with manual screening 21 U/L 15-37 [facility] Thin prep Papanicolaou smear with manual screening 5 5-15 [facility] Assessment of wrist artery p atency prior to arterial punctureOrdered By: Woody Brunson on 06-30-2023 Arterial patency Wrist artery --pre arterial puncture Positive [facility] Base excessOrdered By: Woody Brunson on 06-30-2023 Base excess Calc (BldV) [Moles/Vol] 0 mmol/L -2-2 [facility] Basophil percentageOrdered B y: Woody Brunson on 06-30-2023 Basophil percentage 24.2 mmol/L 22-26 [facility] Basophils/100 WBC (Bld) 97 % 95-99 [facility] Ammonia (P) [Moles/Vol] 28.0 umol/L [facility] Basophil percentage 28.0 umol/L [facility] Basophil percentageOrdered B y: Rigoberto Ashley on 06-30-2023 Basophil percentage 75 mg/dL <200 [facility] Basophil percentage 98 mg/dL <199 [facility] Cholesterol [Mass/Vol] 75 mg/dL <200 [facility] Comment on above: <200 mg/dL Desirable 200-240 mg/dL Borderline >240 mg/dL High Risk Triglyceride [Mass/Vol] 98 mg/dL <199 [facility] Comment on above: The drugs N-Acetylcy steine and Metamizole may falsely depress this assay.Serum Triglycerides Reference Interval Normal <150 mg/dL Borderline high 150 - 199 mg/dL High 200 - 499 mg/dL Very High > or = 500 mg/dL CO2 (BldA) [Partial pressure ]Ordered By: Woody Brunson on 06-30-2023 CO2 (Bld) [Partial pressure] 34.5 mm[Hg] 35-45 [facility] No Panel InformationOrdered By: Woody Brunson on 06-30-2023 Blood Gas Liter Flow 5.0 /min [facility] Blood Gas Sample Site R Radial [facility] Blood Gas Specimen Type ART [facility] Blood Gas Total CO2 25 mmol/L [facility] Oxygen Delivery Device Cannula [facility] ART [facility] R Radial [facility] Cannula [facility] 5.0 /min [facility] 25 mmol/L [facility] No Panel InformationOrdered By: Rigoberto Ashley on 06-30-2023 Thyroid Stimulating Hormone (TSH) 5.37 uIU/mL 0.358-3.74 [facility] 5.37 uIU/mL 0.358-3.74 [facility] Oxygen (BldA) [Partial press ure]Ordered By: Woody Brunson on 06-30-2023 Oxygen (Bld) [Partial pressure] 81 mmHG 75-100 [facility] Serum or plasma cholesterol in HDL measurement (mass/volume)Ordered By: Rigoberto Ashley on 06-30-2023 Cholesterol in HDL [Mass/Vol] 30 mg/dL >40 [facility] Comment on above: The drugs N-Acetylcy steine and Metamizole may falsely depress this assay. Reference Range HDL <40 mg/dL Low HDL Cholesterol HDL >or= 60 mg/dL High HDL Cholesterol Serum or plasma cholesterol in VLDL measurement (mass/volume)Ordered By: Rigoberto Ashley on 06-30-2023 Cholesterol in VLDL [Mass/Vol] 20 mg/dL 5-40 [facility] Serum or plasma low density lipoprotein (LDL) cholesterol measurement (mass/volume)Ordered By: Rigoberto Ashley on 06-30-2023 Cholesterol in LDL [Mass/Vol] 25 mg/dL 0-130 [facility] Whole blood hemoglobin A1c/t otal hemoglobin ratio (mass fraction)Ordered By: Rigoberto Ashley on 06-30-2023 HbA1c (Bld) [Mass fraction] 5.6 % 3.8-5.6 [facility] Comment on above: Normal < 5.7 % Predi abetic 5.7 - 6.4 % Diabetic >or= 6.5 % Please note range changes. pH measurementOrdered By: Kyler Bustoskita on 06-30-2023 pH (Unsp spec) 7.45 [pH] 7.35-7.45 [facility] Absolute lymphocyte countOrd ered By: Angélica Palomo on 06-29-2023 Lymphocytes Auto (Unsp spec) [#/Vol] 2.01 10*3/uL 0.83-4.51 [facility] Basophil percentageOrdered B y: Angélica Palomo on 06-29-2023 Basophil percentage 0 SEEN /hpf 0-5 [facility] Basophils/100 WBC (Bld) 0.6 % 0-1 [facility] Chloride [Moles/Vol] 107 mmol/L 98-107 [facility] Eosinophils/100 WBC (Bld) 1.4 % 0-5 [facility] Glucose [Mass/Vol] 102 mg/dL 74-106 [facility] Comment on above: Fasting Glucose resu lt from 100 to 125 mg/dL suggests IMPAIRED HOMEOSTASIS per A.D.A. criteria. Neutrophils (Bld) [#/Vol] 6.7 10*3/uL 2.0-7.7 [facility] Neutrophils/100 WBC (Bld) 70.0 % 47-70 [facility] Potassium [Moles/Vol] 4.7 mmol/L 3.5-5.1 [facility] Sodium [Moles/Vol] 141 mmol/L 136-145 [facility] WBC (Bld) [#/Vol] 9.5 10*3/uL 4.4-11.0 [facility] Basophil percentageOrdered B y: Rigobertoprabha Ashley on 06-29-2023 Basophil percentage 3.9 mg/dL 2.5-4.9 [facility] Bilirubin Test strip Ql (U)O rdered By: Angélica Palomo on 06-29-2023 Bilirubin Ql (U) Negative Negative [facility] Blood erythrocytes count (nu mber/volume)Ordered By: Angélica Palomo on 06-29-2023 RBC (Bld) [#/Vol] 3.69 10*6/uL 4.6-6.2 [facility] Blood hemoglobin measurement (mass/volume)Ordered By: Angélica Palomo on 06-29-2023 Hemoglobin (Bld) [Mass/Vol] 11.6 g/dL 13.0-16.5 [facility] Blood lymphocytes/100 leukoc ytesOrdered By: Angélica Palomo on 06-29-2023 Lymphocytes/100 WBC (Bld) 21.1 % 19-41 [facility] Blood monocytes/100 leukocyt esOrdered By: Angélica Palomo on 06-29-2023 Monocytes/100 WBC (Bld) 6.4 % 0-10 [facility] Blood platelet mean volumeOr dered By: Angélica Palomo on 06-29-2023 Platelet mean volume (Bld) [Entitic vol] 11.3 fL 6.2-12.0 [facility] Determination of erythrocyte mean corpuscular volume (MCV)Ordered By: Angélica Palomo on 06-29-2023 MCV (RBC) [Entitic vol] 99.5 fL 80-94 [facility] HCO3 (BldA) [Moles/Vol]Order ed By: Angélica Palomo on 06-29-2023 HCO3 (Bld) [Moles/Vol] 25 mmol/L 22-26 [facility] Hematocrit Auto (Bld) [Volum e fraction]Ordered By: Angélica Palomo on 06-29-2023 Hematocrit (Bld) [Volume fraction] 36.7 % 40-54 [facility] INR in Blood by Coagulation assayOrdered By: Angélica Palomo on 06-29-2023 INR Coag (Bld) [Relative time] 1.5 {INR} [facility] Ketones Test strip Ql (U)Ord ered By: Angélica Palomo on 06-29-2023 Ketones Ql (U) Negative Negative [facility] Laboratory - Chemistry and C hemistry - challengeOrdered By: Angélica Palomo on 06-29-2023 CO2 [Moles/Vol] 26 mmol/L 23-33 [facility] CO2 [Moles/Vol] 28.0 mmol/L 21.0-32.0 [facility] Urea nitrogen/Creatinine [Mass ratio] 19.0 mg/mg 10-20 [facility] Laboratory - Chemistry and C hemistry - challengeOrdered By: Rigoberto Ashley on 06-29-2023 Magnesium [Mass/Vol] 1.9 mg/dL 1.6-2.6 [facility] Laboratory - CoagulationOrde red By: Angélica Palomo on 06-29-2023 aPTT Coag (Bld) [Time] 40.4 s 24.1-36.2 [facility] PT Coag (PPP) [Time] 18.0 s 11.7-14.9 [facility] Laboratory - Hematology and Cell countsOrdered By: Angélica Palomo on 06-29-2023 Erythrocyte distribution width (RBC) [Entitic vol] 51.5 fL 35.1-43.9 [facility] Erythrocyte distribution width (RBC) [Ratio] 14.2 % 11.6-14.6 [facility] Immature granulocytes/100 WBC (Bld) 0.500 % 0.0-0.9 [facility] Comment on above: IG% - Immature Granu locytes (promyelocytes, myelocytes and metamyelocytes) > 1% indicates that a LEFT SHIFT is Present. MCH (RBC) [Entitic mass] 31.4 pg 27.0-32.0 [facility] Nucleated RBC/100 WBC (Bld) [Ratio] 0 % 0-5 [facility] MCHC Auto (RBC) [Mass/Vol]Or dered By: Angélica Palomo on 06-29-2023 MCHC (RBC) [Mass/Vol] 31.6 g/dL 32-36 [facility] Mucus LM Ql (Urine sed)Order ed By: Angélica Palomo on 06-29-2023 Mucus Ql (Urine sed) 0 SEEN /hpf [facility] Nitrite Test strip Ql (U)Ord ered By: Angélica Palomo on 06-29-2023 Nitrite Ql (U) Negative Negative [facility] No Panel InformationOrdered By: Angélica Palomo on 06-29-2023 Bed Mix Venous Bld PCO2 at Pat Temp 34.8 mmHg 41-51 [facility] Blood Gas Liter Flow 4.0 /min [facility] Blood Gas Specimen Type AYE [facility] Venous Blood Base Excess 1 mmol/L -1.0-3.5 [facility] 34.8 mmHg 41-51 [facility] 1 mmol/L -1.0-3.5 [facility] 93 % 50-70 [facility] 26 mmol/L 23-33 [facility] Estimated Creatinine Clearance Calc 19.98 ml/min [facility] Estimated GFR (MDRD) Amer 32 mL/min >60 [facility] Comment on above: GFR Calc Estimated GFR (MDRD) Non-Af Amer 27 mL/min >60 [facility] Comment on above: Non- GFR Calc Troponin I High Sensitivity 66 pg/mL 3.0-78.0 [facility] Comment on above: Please Note: New Meghana t Units and Gender Specific Reference Ranges. For more information see Policy Stat Procedure [place] High Sensitivity Troponin (TNIH) and attachments. 18.0 SECONDS 11.7-14.9 [facility] 40.4 Seconds 24.1-36.2 [facility] 66 pg/mL 3.0-78.0 [facility] No Panel InformationOrdered By: Rigoberto Ashley on 06-29-2023 1.9 mg/dL 1.6-2.6 [facility] PO2 venousOrdered By: Angélica Palomo on 06-29-2023 Oxygen (BldV) [Partial pressure] 64 mm[Hg] 25-40 [facility] Platelets bldOrdered By: eDe Palomo on 06-29-2023 Platelets (Bld) [#/Vol] 143 10*3/uL 150-450 [facility] Protein Test strip Ql (U)Ord ered By: Angélica Palomo on 06-29-2023 Protein Ql (U) 30 mg/dl Negative [facility] Serum or plasma calcium aubree urement (mass/volume)Ordered By: Angélica Palomo on 06-29-2023 Calcium [Mass/Vol] 9.9 mg/dL 8.5-10.1 [facility] Serum or plasma creatinine m easurement (mass/volume)Ordered By: Angélica Palomo on 06-29-2023 Creatinine [Mass/Vol] 2.48 mg/dL 0.70-1.30 [facility] Comment on above: The validity of the calculated GFR & GFRAA in patients over 70 years has not been determined. Clinical correlation is essential. Serum or plasma urea nitroge n measurement (mass/volume)Ordered By: Angélica Palomo on 06-29-2023 Urea nitrogen [Mass/Vol] 47 mg/dL 7-18 [facility] Squamous epithelial cells de tection in urine sediment by light microscopyOrdered By: Angélica Palomo on 06-29-2023 Epithelial cells.squamous LM Ql (Urine sed) 0 SEEN /hpf 0-5 [facility] Thin prep Papanicolaou smear with manual screeningOrdered By: Angélica Palomo on 06-29-2023 Thin prep Papanicolaou smear with manual screening 6 5-15 [facility] Urine blood detectionOrdered By: Angélica Palomo on 06-29-2023 RBC Ql (U) Negative Negative [facility] RBC Ql (U) 0 SEEN /hpf 0-5 [facility] Urine clarityOrdered By: Dee Palomo on 06-29-2023 Clarity (U) Clear Clear [facility] Urine color determinationOrd ered By: Angélica Palomo on 06-29-2023 Color (U) Yellow Yellow [facility] Urine glucose detectionOrder ed By: Angélica Palomo on 06-29-2023 Glucose Ql (U) Normal mg/dl Normal [facility] Urine leukocyte esterase det ection by dipstickOrdered By: Angélica Palomo on 06-29-2023 Leukocyte esterase Test strip Ql (U) Negative Negative [facility] Urine pHOrdered By: Angélica sher on 06-29-2023 pH (U) 6.0 [pH] 5.0 - 8.0 [facility] Urine sediment bacteria coun t by microscopy (number/high power field)Ordered By: Angélica Palomo on 06-29-2023 Bacteria LM.HPF (Urine sed) [#/Area] 0 /[HPF] None Seen [facility] Urine specific gravity measu rementOrdered By: Angélica Palomo on 06-29-2023 Specific gravity (U) [Rel density] 1.015 1.002-1.030 [facility] Urobilinogen Auto test strip Ql (U)Ordered By: Angélica Palomo on 06-29-2023 Urobilinogen Ql (U) Normal mg/dl Normal [facility] Vital signsOrdered By: Senia Palomo on 06-29-2023 Oxygen saturation in Blood 93 % 50-70 [facility] pH measurementOrdered By: Phoenix Palomo on 06-29-2023 pH (Unsp spec) 7.46 [pH] 7.32-7.42 [facility] Absolute lymphocyte countOrd ered By: Pepe Au on 06-13-2023 Lymphocytes Auto (Unsp spec) [#/Vol] 1.92 10*3/uL 0.83-4.51 [facility] Basophil percentageOrdered B y: Pepe Au on 06-13-2023 Basophil percentage 3.0 mg/dL 2.5-4.9 [facility] Basophil percentage 172 mg/dL 74-106 [facility] Basophil percentage 140 mmol/L 136-145 [facility] Basophil percentage 4.6 mmol/L 3.5-5.1 [facility] Basophil percentage 110 mmol/L 98-107 [facility] Basophils (Bld) [#/Vol] 8.7 10*3/uL 4.4-11.0 [facility] Basophils (Bld) [#/Vol] 6.0 10*3/uL 2.0-7.7 [facility] Basophils/100 WBC (Bld) 0.3 % 0-1 [facility] Basophils/100 WBC (Bld) 68.6 % 47-70 [facility] Basophils/100 WBC (Bld) 1.8 % 0-5 [facility] Chloride [Moles/Vol] 110 mmol/L 98-107 [facility] Eosinophils/100 WBC (Bld) 1.8 % 0-5 [facility] Glucose [Mass/Vol] 172 mg/dL 74-106 [facility] Comment on above: Fasting Glucose resu lt greater than or equal to 126 mg/dL suggests DIABETES MELLITUS per A.D.A. criteria. Neutrophils (Bld) [#/Vol] 6.0 10*3/uL 2.0-7.7 [facility] Neutrophils/100 WBC (Bld) 68.6 % 47-70 [facility] Potassium [Moles/Vol] 4.6 mmol/L 3.5-5.1 [facility] Sodium [Moles/Vol] 140 mmol/L 136-145 [facility] WBC (Bld) [#/Vol] 8.7 10*3/uL 4.4-11.0 [facility] Blood erythrocytes count (nu mber/volume)Ordered By: Pepe Au on 06-13-2023 RBC (Bld) [#/Vol] 3.60 10*6/uL 4.6-6.2 [facility] Blood hemoglobin measurement (mass/volume)Ordered By: Pepe Au on 06-13-2023 Hemoglobin (Bld) [Mass/Vol] 11.4 g/dL 13.0-16.5 [facility] Blood lymphocytes/100 leukoc ytesOrdered By: Pepe Au on 06-13-2023 Lymphocytes/100 WBC (Bld) 22.0 % 19-41 [facility] Blood monocytes/100 leukocyt esOrdered By: Pepe Au on 06-13-2023 Monocytes/100 WBC (Bld) 7.0 % 0-10 [facility] Blood platelet mean volumeOr dered By: Pepe Au on 06-13-2023 Platelet mean volume (Bld) [Entitic vol] 10.8 fL 6.2-12.0 [facility] Determination of erythrocyte mean corpuscular volume (MCV)Ordered By: Pepe Au on 06-13-2023 MCV (RBC) [Entitic vol] 101.4 fL 80-94 [facility] Hematocrit Auto (Bld) [Volum e fraction]Ordered By: Pepe Au on 06-13-2023 Hematocrit (Bld) [Volume fraction] 36.5 % 40-54 [facility] Iron measurement (mass/mass) Ordered By: Pepe Au on 06-13-2023 Iron (Unsp spec) [Mass/Mass] 60 ug/dL 65-175 [facility] Laboratory - Chemistry and C hemistry - challengeOrdered By: Pepe Au on 06-13-2023 CO2 [Moles/Vol] 25.0 mmol/L 21.0-32.0 [facility] Urea nitrogen/Creatinine [Mass ratio] 19.7 mg/mg 10-20 [facility] Laboratory - Hematology and Cell countsOrdered By: Pepe Au on 06-13-2023 Erythrocyte distribution width (RBC) [Entitic vol] 52.5 fL 35.1-43.9 [facility] Erythrocyte distribution width (RBC) [Ratio] 14.1 % 11.6-14.6 [facility] Immature granulocytes/100 WBC (Bld) 0.300 % 0.0-0.9 [facility] Comment on above: IG% - Immature Granu locytes (promyelocytes, myelocytes and metamyelocytes) > 1% indicates that a LEFT SHIFT is Present. MCH (RBC) [Entitic mass] 31.7 pg 27.0-32.0 [facility] Nucleated RBC/100 WBC (Bld) [Ratio] 0 % 0-5 [facility] MCHC Auto (RBC) [Mass/Vol]Or dered By: Pepe Au on 06-13-2023 MCHC (RBC) [Mass/Vol] 31.2 g/dL 32-36 [facility] No Panel InformationOrdered By: Pepe Au on 06-13-2023 Estimated GFR (MDRD) Amer 28 mL/min >60 [facility] Comment on above: GFR Calc Estimated GFR (MDRD) Non-Af Amer 23 mL/min >60 [facility] Comment on above: Non- GFR Calc Total Iron Binding Capacity 258 ug/dL 250-450 [facility] 31.7 pg 27.0-32.0 [facility] 14.1 % 11.6-14.6 [facility] 52.5 fl 35.1-43.9 [facility] 0.300 % 0.0-0.9 [facility] 0 % 0-5 [facility] 23 mL/min >60 [facility] 28 mL/min >60 [facility] 19.7 RATIO 10-20 [facility] 25.0 mmol/L 21.0-32.0 [facility] 258 ug/dL 250-450 [facility] Platelets bldOrdered By: Zandra Au on 06-13-2023 Platelets (Bld) [#/Vol] 120 10*3/uL 150-450 [facility] Serum or plasma albumin aubree urement (mass/volume)Ordered By: Pepe Au on 06-13-2023 Albumin [Mass/Vol] 3.3 g/dL 3.2-5.0 [facility] Serum or plasma calcium aubree urement (mass/volume)Ordered By: Pepe Au on 06-13-2023 Calcium [Mass/Vol] 8.5 mg/dL 8.5-10.1 [facility] Serum or plasma creatinine m easurement (mass/volume)Ordered By: Pepe Au on 06-13-2023 Creatinine [Mass/Vol] 2.84 mg/dL 0.70-1.30 [facility] Comment on above: The validity of the calculated GFR & GFRAA in patients over 70 years has not been determined. Clinical correlation is essential. Serum or plasma ferritin laurie surement (mass/volume)Ordered By: Pepe Au on 06-13-2023 Ferritin [Mass/Vol] 168 ng/mL 26-388 [facility] Serum or plasma iron saturat ion measurement (mass fraction)Ordered By: [facility]ve Au on 06-13-2023 Iron saturation [Mass fraction] 23.3 % 15.0-55.0 [facility] Serum or plasma urea nitroge n measurement (mass/volume)Ordered By: Pepe Au on 06-13-2023 Urea nitrogen [Mass/Vol] 56 mg/dL 7-18 [facility] Absolute lymphocyte countOrd ered By: Toñito Espino on 05-26-2023 Lymphocytes Auto (Unsp spec) [#/Vol] 1.58 10*3/uL 0.83-4.51 [facility] Basophil percentageOrdered B y: Toñito Espino on 05-26-2023 Basophil percentage 3.7 mg/dL 2.5-4.9 [facility] Basophil percentage 196 mg/dL 74-106 [facility] Basophil percentage 7.8 g/dL 6.4-8.2 [facility] Basophil percentage 0.80 mg/dL 0.20-1.00 [facility] Basophil percentage 140 mmol/L 136-145 [facility] Basophil percentage 4.7 mmol/L 3.5-5.1 [facility] Basophil percentage 107 mmol/L 98-107 [facility] Basophils (Bld) [#/Vol] 8.7 10*3/uL 4.4-11.0 [facility] Basophils (Bld) [#/Vol] 6.5 10*3/uL 2.0-7.7 [facility] Basophils/100 WBC (Bld) 0.5 % 0-1 [facility] Basophils/100 WBC (Bld) 74.3 % 47-70 [facility] Basophils/100 WBC (Bld) 1.3 % 0-5 [facility] Bilirubin [Mass/Vol] 0.80 mg/dL 0.20-1.00 [facility] Comment on above: For patients on eltr ombopag therapy, use of Dimension [place] TBIL is not recommended. Chloride [Moles/Vol] 107 mmol/L 98-107 [facility] Eosinophils/100 WBC (Bld) 1.3 % 0-5 [facility] Glucose [Mass/Vol] 196 mg/dL 74-106 [facility] Comment on above: Fasting Glucose resu lt greater than or equal to 126 mg/dL suggests DIABETES MELLITUS per A.D.A. criteria. Neutrophils (Bld) [#/Vol] 6.5 10*3/uL 2.0-7.7 [facility] Neutrophils/100 WBC (Bld) 74.3 % 47-70 [facility] Potassium [Moles/Vol] 4.7 mmol/L 3.5-5.1 [facility] Protein [Mass/Vol] 7.8 g/dL 6.4-8.2 [facility] Sodium [Moles/Vol] 140 mmol/L 136-145 [facility] WBC (Bld) [#/Vol] 8.7 10*3/uL 4.4-11.0 [facility] Blood erythrocytes count (nu mber/volume)Ordered By: Toñito Espino on 05-26-2023 RBC (Bld) [#/Vol] 3.52 10*6/uL 4.6-6.2 [facility] Blood hemoglobin measurement (mass/volume)Ordered By: Toñito Espino on 05-26-2023 Hemoglobin (Bld) [Mass/Vol] 11.1 g/dL 13.0-16.5 [facility] Blood lymphocytes/100 leukoc ytesOrdered By: Toñito Espino on 05-26-2023 Lymphocytes/100 WBC (Bld) 18.1 % 19-41 [facility] Blood monocytes/100 leukocyt esOrdered By: Toñito Espino on 05-26-2023 Monocytes/100 WBC (Bld) 5.3 % 0-10 [facility] Blood platelet mean volumeOr dered By: Toñito Espino on 05-26-2023 Platelet mean volume (Bld) [Entitic vol] 11.6 fL 6.2-12.0 [facility] Determination of erythrocyte mean corpuscular volume (MCV)Ordered By: Toñito Espino on 05-26-2023 MCV (RBC) [Entitic vol] 101.1 fL 80-94 [facility] Hematocrit Auto (Bld) [Volum e fraction]Ordered By: Toñito Espino on 05-26-2023 Hematocrit (Bld) [Volume fraction] 35.6 % 40-54 [facility] Iron measurement (mass/mass) Ordered By: Toñito Espino on 05-26-2023 Iron (Unsp spec) [Mass/Mass] 75 ug/dL 65-175 [facility] Laboratory - Chemistry and C hemistry - challengeOrdered By: Toñito Espino on 05-26-2023 ALP [Catalytic activity/Vol] 134 U/L 45-117 [facility] ALT [Catalytic activity/Vol] 14 U/L 16-61 [facility] CO2 [Moles/Vol] 27.0 mmol/L 21.0-32.0 [facility] Globulin (S) [Mass/Vol] 4.6 g/dL 2.2-4.2 [facility] Urea nitrogen/Creatinine [Mass ratio] 19.9 mg/mg 10-20 [facility] Laboratory - Hematology and Cell countsOrdered By: Toñito Espino on 05-26-2023 Erythrocyte distribution width (RBC) [Entitic vol] 51.8 fL 35.1-43.9 [facility] Erythrocyte distribution width (RBC) [Ratio] 14.2 % 11.6-14.6 [facility] Immature granulocytes/100 WBC (Bld) 0.500 % 0.0-0.9 [facility] Comment on above: IG% - Immature Granu locytes (promyelocytes, myelocytes and metamyelocytes) > 1% indicates that a LEFT SHIFT is Present. MCH (RBC) [Entitic mass] 31.5 pg 27.0-32.0 [facility] Nucleated RBC/100 WBC (Bld) [Ratio] 0 % 0-5 [facility] MCHC Auto (RBC) [Mass/Vol]Or dered By: Toñito Espino on 05-26-2023 MCHC (RBC) [Mass/Vol] 31.2 g/dL 32-36 [facility] No Panel InformationOrdered By: Toñito Espino on 05-26-2023 Estimated GFR (MDRD) Amer 26 mL/min >60 [facility] Comment on above: GFR Calc Estimated GFR (MDRD) Non-Af Amer 21 mL/min >60 [facility] Comment on above: Non- GFR Calc Parathyroid Hormone (Intact) 20.3 pg/mL 18.4-80.1 [facility] Thyroid Stimulating Hormone (TSH) 4.65 uIU/mL 0.358-3.74 [facility] Total Iron Binding Capacity 278 ug/dL 250-450 [facility] 31.5 pg 27.0-32.0 [facility] 14.2 % 11.6-14.6 [facility] 51.8 fl 35.1-43.9 [facility] 0.500 % 0.0-0.9 [facility] 0 % 0-5 [facility] 21 mL/min >60 [facility] 26 mL/min >60 [facility] 19.9 RATIO 10-20 [facility] 4.6 g/dL 2.2-4.2 [facility] 134 U/L 45-117 [facility] 14 U/L 16-61 [facility] 27.0 mmol/L 21.0-32.0 [facility] 4.65 uIU/mL 0.358-3.74 [facility] 278 ug/dL 250-450 [facility] 20.3 pg/mL 18.4-80.1 [facility] Platelets bldOrdered By: Sujit Espino on 05-26-2023 Platelets (Bld) [#/Vol] 130 10*3/uL 150-450 [facility] Serum or plasma albumin aubree urement (mass/volume)Ordered By: Toñito Espino on 05-26-2023 Albumin [Mass/Vol] 3.2 g/dL 3.2-5.0 [facility] Serum or plasma albumin/glob ulin mass ratioOrdered By: Toñito Espino on 05-26-2023 Albumin/Globulin [Mass ratio] 0.7 {ratio} 0.9-2.4 [facility] Serum or plasma calcium aubree urement (mass/volume)Ordered By: Toñito Espino on 05-26-2023 Calcium [Mass/Vol] 9.3 mg/dL 8.5-10.1 [facility] Serum or plasma creatinine m easurement (mass/volume)Ordered By: Toñito Espino on 05-26-2023 Creatinine [Mass/Vol] 3.02 mg/dL 0.70-1.30 [facility] Comment on above: The validity of the calculated GFR & GFRAA in patients over 70 years has not been determined. Clinical correlation is essential. Serum or plasma ferritin laurie surement (mass/volume)Ordered By: Toñito Espino on 05-26-2023 Ferritin [Mass/Vol] 151 ng/mL 26-388 [facility] Serum or plasma iron saturat ion measurement (mass fraction)Ordered By: Toñito Espino on 05-26-2023 Iron saturation [Mass fraction] 27.0 % 15.0-55.0 [facility] Serum or plasma urea nitroge n measurement (mass/volume)Ordered By: Toñito Espino on 05-26-2023 Urea nitrogen [Mass/Vol] 60 mg/dL 7-18 [facility] Thin prep Papanicolaou smear with manual screeningOrdered By: Toñito Espino on 05-26-2023 Thin prep Papanicolaou smear with manual screening 15 U/L 15-37 [facility] Thin prep Papanicolaou smear with manual screening 6 5-15 [facility] Urine creatinine measurement (mass/volume)Ordered By: Toñito Espino on 05-26-2023 Creatinine (U) [Mass/Vol] 84.50 mg/dL NO RANGE EST. [facility] Urine protein measurement (m ass/volume)Ordered By: Toñito Espino on 05-26-2023 Protein (U) [Mass/Vol] 58.6 mg/dL 0.0-11.8 [facility] Urine protein/creatinine mas s ratioOrdered By: Toñito Espino on 05-26-2023 Protein/Creatinine (U) [Mass ratio] 693 mg/g CRE 0-200 [facility] Whole blood hemoglobin A1c/t otal hemoglobin ratio (mass fraction)Ordered By: Toñito Espino on 05-26-2023 HbA1c (Bld) [Mass fraction] 5.5 % 3.8-5.6 [facility] Comment on above: Normal < 5.7 % Predi abetic 5.7 - 6.4 % Diabetic >or= 6.5 % Please note range changes. Absolute lymphocyte countOrd ered By: Dr. Au on 05-16-2023 Lymphocytes Auto (Unsp spec) [#/Vol] 2.23 10*3/uL 0.83-4.51 [facility] Basophil percentageOrdered B y: Dr. Au on 05-16-2023 Basophil percentage 3.8 mg/dL 2.5-4.9 [facility] Basophils/100 WBC (Bld) 0.5 % 0-1 [facility] Chloride [Moles/Vol] 110 mmol/L 98-107 [facility] Eosinophils/100 WBC (Bld) 2.4 % 0-5 [facility] Glucose [Mass/Vol] 163 mg/dL 74-106 [facility] Comment on above: Fasting Glucose resu lt greater than or equal to 126 mg/dL suggests DIABETES MELLITUS per A.D.A. criteria. Neutrophils (Bld) [#/Vol] 6.0 10*3/uL 2.0-7.7 [facility] Neutrophils/100 WBC (Bld) 66.1 % 47-70 [facility] Potassium [Moles/Vol] 4.6 mmol/L 3.5-5.1 [facility] Sodium [Moles/Vol] 141 mmol/L 136-145 [facility] WBC (Bld) [#/Vol] 9.1 10*3/uL 4.4-11.0 [facility] Basophil percentageOrdered B y: Pepe Au on 05-16-2023 Basophil percentage 163 mg/dL 74-106 [facility] Basophil percentage 141 mmol/L 136-145 [facility] Basophil percentage 4.6 mmol/L 3.5-5.1 [facility] Basophil percentage 110 mmol/L 98-107 [facility] Basophils (Bld) [#/Vol] 9.1 10*3/uL 4.4-11.0 [facility] Basophils (Bld) [#/Vol] 6.0 10*3/uL 2.0-7.7 [facility] Basophils/100 WBC (Bld) 66.1 % 47-70 [facility] Basophils/100 WBC (Bld) 2.4 % 0-5 [facility] Blood erythrocytes count (nu mber/volume)Ordered By: Dr. Au on 05-16-2023 RBC (Bld) [#/Vol] 3.57 10*6/uL 4.6-6.2 [facility] Blood hemoglobin measurement (mass/volume)Ordered By: Dr. Au on 05-16-2023 Hemoglobin (Bld) [Mass/Vol] 11.2 g/dL 13.0-16.5 [facility] Blood lymphocytes/100 leukoc ytesOrdered By: Dr. Au on 05-16-2023 Lymphocytes/100 WBC (Bld) 24.5 % 19-41 [facility] Blood monocytes/100 leukocyt esOrdered By: Dr. Au on 05-16-2023 Monocytes/100 WBC (Bld) 6.1 % 0-10 [facility] Blood platelet mean volumeOr dered By: Dr. Au on 05-16-2023 Platelet mean volume (Bld) [Entitic vol] 10.3 fL 6.2-12.0 [facility] Determination of erythrocyte mean corpuscular volume (MCV)Ordered By: Dr. Au on 05-16-2023 MCV (RBC) [Entitic vol] 100.0 fL 80-94 [facility] Hematocrit Auto (Bld) [Volum e fraction]Ordered By: Dr. Au on 05-16-2023 Hematocrit (Bld) [Volume fraction] 35.7 % 40-54 [facility] Iron measurement (mass/mass) Ordered By: Dr. Au on 06-19-2023 Iron (Unsp spec) [Mass/Mass] 70 ug/dL 65-175 [facility] Laboratory - Chemistry and C hemistry - challengeOrdered By: Dr. Au on 05-16-2023 CO2 [Moles/Vol] 25.0 mmol/L 21.0-32.0 [facility] Urea nitrogen/Creatinine [Mass ratio] 21.5 mg/mg 10-20 [facility] Laboratory - Hematology and Cell countsOrdered By: Dr. Au on 05-16-2023 Erythrocyte distribution width (RBC) [Entitic vol] 52.7 fL 35.1-43.9 [facility] Erythrocyte distribution width (RBC) [Ratio] 14.5 % 11.6-14.6 [facility] Immature granulocytes/100 WBC (Bld) 0.400 % 0.0-0.9 [facility] Comment on above: IG% - Immature Granu locytes (promyelocytes, myelocytes and metamyelocytes) > 1% indicates that a LEFT SHIFT is Present. MCH (RBC) [Entitic mass] 31.4 pg 27.0-32.0 [facility] Nucleated RBC/100 WBC (Bld) [Ratio] 0 % 0-5 [facility] MCHC Auto (RBC) [Mass/Vol]Or dered By: Dr. Au on 05-16-2023 MCHC (RBC) [Mass/Vol] 31.4 g/dL 32-36 [facility] No Panel InformationOrdered By: Dr. Au on 05-16-2023 Estimated GFR (MDRD) Amer 26 mL/min >60 [facility] Comment on above: GFR Calc Estimated GFR (MDRD) Non-Af Amer 22 mL/min >60 [facility] Comment on above: Non- GFR Calc Parathyroid Hormone (Intact) 55.0 pg/mL 18.4-80.1 [facility] Total Iron Binding Capacity 231 ug/dL 250-450 [facility] No Panel InformationOrdered By: Pepe Au on 05-16-2023 31.4 pg 27.0-32.0 [facility] 14.5 % 11.6-14.6 [facility] 52.7 fl 35.1-43.9 [facility] 0.400 % 0.0-0.9 [facility] 0 % 0-5 [facility] 22 mL/min >60 [facility] 26 mL/min >60 [facility] 21.5 RATIO 10-20 [facility] 25.0 mmol/L 21.0-32.0 [facility] 231 ug/dL 250-450 [facility] 55.0 pg/mL 18.4-80.1 [facility] Platelets bldOrdered By: Dr. Au on 05-16-2023 Platelets (Bld) [#/Vol] 132 10*3/uL 150-450 [facility] Serum or plasma albumin aubree urement (mass/volume)Ordered By: Dr. Au on 05-16-2023 Albumin [Mass/Vol] 3.2 g/dL 3.2-5.0 [facility] Serum or plasma calcium aubree urement (mass/volume)Ordered By: Dr. Au on 05-16-2023 Calcium [Mass/Vol] 9.1 mg/dL 8.5-10.1 [facility] Serum or plasma creatinine m easurement (mass/volume)Ordered By: Dr. Au on 05-16-2023 Creatinine [Mass/Vol] 2.97 mg/dL 0.70-1.30 [facility] Comment on above: The validity of the calculated GFR & GFRAA in patients over 70 years has not been determined. Clinical correlation is essential. Serum or plasma ferritin laurie surement (mass/volume)Ordered By: Dr. Au on 05-16-2023 Ferritin [Mass/Vol] 154 ng/mL 26-388 [facility] Serum or plasma iron saturat ion measurement (mass fraction)Ordered By: Dr. Au on 05-16-2023 Iron saturation [Mass fraction] 30.3 % 15.0-55.0 [facility] Serum or plasma urea nitroge n measurement (mass/volume)Ordered By: Dr. Au on 05-16-2023 Urea nitrogen [Mass/Vol] 64 mg/dL 7-18 [facility] No Panel Informationon 05-12 Culture Urine <10,000 cfu/ml. No Significant growth. Sensitivity not indicated. [facility] Work Phone: Absolute lymphocyte countOrd ered By: Dr. Au on 04-18-2023 Lymphocytes Auto (Unsp spec) [#/Vol] 1.93 10*3/uL 0.83-4.51 [facility] Basophil percentageOrdered B y: Dr. Au on 04-18-2023 Basophil percentage 4.0 mg/dL 2.5-4.9 [facility] Basophils/100 WBC (Bld) 0.2 % 0-1 [facility] Chloride [Moles/Vol] 107 mmol/L 98-107 [facility] Eosinophils/100 WBC (Bld) 1.9 % 0-5 [facility] Glucose [Mass/Vol] 144 mg/dL 74-106 [facility] Comment on above: Fasting Glucose resu lt greater than or equal to 126 mg/dL suggests DIABETES MELLITUS per A.D.A. criteria. Neutrophils (Bld) [#/Vol] 5.7 10*3/uL 2.0-7.7 [facility] Neutrophils/100 WBC (Bld) 68.4 % 47-70 [facility] Potassium [Moles/Vol] 4.3 mmol/L 3.5-5.1 [facility] Sodium [Moles/Vol] 141 mmol/L 136-145 [facility] WBC (Bld) [#/Vol] 8.4 10*3/uL 4.4-11.0 [facility] Basophil percentageOrdered B y: Pepe Au on 04-18-2023 Basophil percentage 144 mg/dL 74-106 [facility] Basophil percentage 141 mmol/L 136-145 [facility] Basophil percentage 4.3 mmol/L 3.5-5.1 [facility] Basophil percentage 107 mmol/L 98-107 [facility] Basophils (Bld) [#/Vol] 8.4 10*3/uL 4.4-11.0 [facility] Basophils (Bld) [#/Vol] 5.7 10*3/uL 2.0-7.7 [facility] Basophils/100 WBC (Bld) 68.4 % 47-70 [facility] Basophils/100 WBC (Bld) 1.9 % 0-5 [facility] Blood erythrocytes count (nu mber/volume)Ordered By: Dr. Au on 04-18-2023 RBC (Bld) [#/Vol] 3.61 10*6/uL 4.6-6.2 [facility] Blood hemoglobin measurement (mass/volume)Ordered By: Dr. Au on 04-18-2023 Hemoglobin (Bld) [Mass/Vol] 11.3 g/dL 13.0-16.5 [facility] Blood lymphocytes/100 leukoc ytesOrdered By: Dr. Au on 04-18-2023 Lymphocytes/100 WBC (Bld) 23.0 % 19-41 [facility] Blood monocytes/100 leukocyt esOrdered By: Dr. Au on 04-18-2023 Monocytes/100 WBC (Bld) 6.1 % 0-10 [facility] Blood platelet mean volumeOr dered By: Dr. Au on 04-18-2023 Platelet mean volume (Bld) [Entitic vol] 10.9 fL 6.2-12.0 [facility] Determination of erythrocyte mean corpuscular volume (MCV)Ordered By: Dr. Au on 04-18-2023 MCV (RBC) [Entitic vol] 99.2 fL 80-94 [facility] Hematocrit Auto (Bld) [Volum e fraction]Ordered By: Dr. Au on 04-18-2023 Hematocrit (Bld) [Volume fraction] 35.8 % 40-54 [facility] Iron measurement (mass/mass) Ordered By: Dr. Au on 04-18-2023 Iron (Unsp spec) [Mass/Mass] 59 ug/dL 65-175 [facility] Laboratory - Chemistry and C hemistry - challengeOrdered By: Dr. Au on 04-18-2023 CO2 [Moles/Vol] 27.0 mmol/L 21.0-32.0 [facility] Urea nitrogen/Creatinine [Mass ratio] 23.6 mg/mg 10-20 [facility] Laboratory - Hematology and Cell countsOrdered By: Dr. Au on 04-18-2023 Erythrocyte distribution width (RBC) [Entitic vol] 50.5 fL 35.1-43.9 [facility] Erythrocyte distribution width (RBC) [Ratio] 14.0 % 11.6-14.6 [facility] Immature granulocytes/100 WBC (Bld) 0.400 % 0.0-0.9 [facility] Comment on above: IG% - Immature Granu locytes (promyelocytes, myelocytes and metamyelocytes) > 1% indicates that a LEFT SHIFT is Present. MCH (RBC) [Entitic mass] 31.3 pg 27.0-32.0 [facility] Nucleated RBC/100 WBC (Bld) [Ratio] 0 % 0-5 [facility] MCHC Auto (RBC) [Mass/Vol]Or dered By: Dr. Au on 04-18-2023 MCHC (RBC) [Mass/Vol] 31.6 g/dL 32-36 [facility] No Panel InformationOrdered By: Dr. Au on 04-18-2023 Estimated GFR (MDRD) Amer 25 mL/min >60 [facility] Comment on above: GFR Calc Estimated GFR (MDRD) Non-Af Amer 21 mL/min >60 [facility] Comment on above: Non- GFR Calc Total Iron Binding Capacity 244 ug/dL 250-450 [facility] No Panel InformationOrdered By: Pepe Au on 04-18-2023 31.3 pg 27.0-32.0 [facility] 14.0 % 11.6-14.6 [facility] 50.5 fl 35.1-43.9 [facility] 0.400 % 0.0-0.9 [facility] 0 % 0-5 [facility] 21 mL/min >60 [facility] 25 mL/min >60 [facility] 23.6 RATIO 10-20 [facility] 27.0 mmol/L 21.0-32.0 [facility] 244 ug/dL 250-450 [facility] Platelets bldOrdered By: Dr. Au on 04-18-2023 Platelets (Bld) [#/Vol] 136 10*3/uL 150-450 [facility] Serum or plasma albumin aubree urement (mass/volume)Ordered By: Dr. Au on 04-18-2023 Albumin [Mass/Vol] 3.2 g/dL 3.2-5.0 [facility] Serum or plasma calcium aubree urement (mass/volume)Ordered By: Dr. Au on 04-18-2023 Calcium [Mass/Vol] 8.9 mg/dL 8.5-10.1 [facility] Serum or plasma creatinine m easurement (mass/volume)Ordered By: Dr. Au on 04-18-2023 Creatinine [Mass/Vol] 3.09 mg/dL 0.70-1.30 [facility] Comment on above: The validity of the calculated GFR & GFRAA in patients over 70 years has not been determined. Clinical correlation is essential. Serum or plasma ferritin laurie surement (mass/volume)Ordered By: Dr. Au on 04-18-2023 Ferritin [Mass/Vol] 184 ng/mL 26-388 [facility] Serum or plasma iron saturat ion measurement (mass fraction)Ordered By: Dr. Au on 04-18-2023 Iron saturation [Mass fraction] 24.2 % 15.0-55.0 [facility] Serum or plasma urea nitroge n measurement (mass/volume)Ordered By: Dr. Au on 04-18-2023 Urea nitrogen [Mass/Vol] 73 mg/dL 7-18 [facility] Absolute lymphocyte countOrd ered By: Dr. Au on 03-21-2023 Lymphocytes Auto (Unsp spec) [#/Vol] 2.09 10*3/uL 0.83-4.51 [facility] Basophil percentageOrdered B y: Dr. Au on 03-21-2023 Basophil percentage 3.2 mg/dL 2.5-4.9 [facility] Basophils/100 WBC (Bld) 0.6 % 0-1 [facility] Chloride [Moles/Vol] 107 mmol/L 98-107 [facility] Eosinophils/100 WBC (Bld) 3.1 % 0-5 [facility] Glucose [Mass/Vol] 151 mg/dL 74-106 [facility] Comment on above: Fasting Glucose resu lt greater than or equal to 126 mg/dL suggests DIABETES MELLITUS per A.D.A. criteria. Neutrophils (Bld) [#/Vol] 6.0 10*3/uL 2.0-7.7 [facility] Neutrophils/100 WBC (Bld) 66.3 % 47-70 [facility] Potassium [Moles/Vol] 4.4 mmol/L 3.5-5.1 [facility] Sodium [Moles/Vol] 137 mmol/L 136-145 [facility] WBC (Bld) [#/Vol] 9.1 10*3/uL 4.4-11.0 [facility] Basophil percentageOrdered B y: Pepe Au on 03-21-2023 Basophil percentage 151 mg/dL 74-106 [facility] Basophil percentage 137 mmol/L 136-145 [facility] Basophil percentage 4.4 mmol/L 3.5-5.1 [facility] Basophil percentage 107 mmol/L 98-107 [facility] Basophils (Bld) [#/Vol] 9.1 10*3/uL 4.4-11.0 [facility] Basophils (Bld) [#/Vol] 6.0 10*3/uL 2.0-7.7 [facility] Basophils/100 WBC (Bld) 66.3 % 47-70 [facility] Basophils/100 WBC (Bld) 3.1 % 0-5 [facility] Blood erythrocytes count (nu mber/volume)Ordered By: Dr. Au on 03-21-2023 RBC (Bld) [#/Vol] 3.57 10*6/uL 4.6-6.2 [facility] Blood hemoglobin measurement (mass/volume)Ordered By: Dr. Au on 03-21-2023 Hemoglobin (Bld) [Mass/Vol] 11.3 g/dL 13.0-16.5 [facility] Blood lymphocytes/100 leukoc ytesOrdered By: Dr. Au on 03-21-2023 Lymphocytes/100 WBC (Bld) 23.0 % 19-41 [facility] Blood monocytes/100 leukocyt esOrdered By: Dr. Au on 03-21-2023 Monocytes/100 WBC (Bld) 6.7 % 0-10 [facility] Blood platelet mean volumeOr dered By: Dr. Au on 03-21-2023 Platelet mean volume (Bld) [Entitic vol] 10.1 fL 6.2-12.0 [facility] Determination of erythrocyte mean corpuscular volume (MCV)Ordered By: Dr. Au on 03-21-2023 MCV (RBC) [Entitic vol] 100.0 fL 80-94 [facility] Hematocrit Auto (Bld) [Volum e fraction]Ordered By: Dr. Au on 03-21-2023 Hematocrit (Bld) [Volume fraction] 35.7 % 40-54 [facility] Iron measurement (mass/mass) Ordered By: Dr. Au on 03-21-2023 Iron (Unsp spec) [Mass/Mass] 88 ug/dL 65-175 [facility] Laboratory - Chemistry and C hemistry - challengeOrdered By: Dr. Au on 03-21-2023 CO2 [Moles/Vol] 27.0 mmol/L 21.0-32.0 [facility] Urea nitrogen/Creatinine [Mass ratio] 23.1 mg/mg 10-20 [facility] Laboratory - Hematology and Cell countsOrdered By: Dr. Au on 03-21-2023 Erythrocyte distribution width (RBC) [Entitic vol] 52.0 fL 35.1-43.9 [facility] Erythrocyte distribution width (RBC) [Ratio] 14.2 % 11.6-14.6 [facility] Immature granulocytes/100 WBC (Bld) 0.300 % 0.0-0.9 [facility] Comment on above: IG% - Immature Granu locytes (promyelocytes, myelocytes and metamyelocytes) > 1% indicates that a LEFT SHIFT is Present. MCH (RBC) [Entitic mass] 31.7 pg 27.0-32.0 [facility] Nucleated RBC/100 WBC (Bld) [Ratio] 0 % 0-5 [facility] MCHC Auto (RBC) [Mass/Vol]Or dered By: Dr. Au on 03-21-2023 MCHC (RBC) [Mass/Vol] 31.7 g/dL 32-36 [facility] No Panel InformationOrdered By: Dr. Au on 03-21-2023 Estimated GFR (MDRD) Amer 28 mL/min >60 [facility] Comment on above: GFR Calc Estimated GFR (MDRD) Non-Af Amer 23 mL/min >60 [facility] Comment on above: Non- GFR Calc Parathyroid Hormone (Intact) 35.6 pg/mL 18.4-80.1 [facility] Total Iron Binding Capacity 224 ug/dL 250-450 [facility] No Panel InformationOrdered By: Pepe Au on 03-21-2023 31.7 pg 27.0-32.0 [facility] 14.2 % 11.6-14.6 [facility] 52.0 fl 35.1-43.9 [facility] 0.300 % 0.0-0.9 [facility] 0 % 0-5 [facility] 23 mL/min >60 [facility] 28 mL/min >60 [facility] 23.1 RATIO 10-20 [facility] 27.0 mmol/L 21.0-32.0 [facility] 224 ug/dL 250-450 [facility] 35.6 pg/mL 18.4-80.1 [facility] Platelets bldOrdered By: Dr. Au on 03-21-2023 Platelets (Bld) [#/Vol] 130 10*3/uL 150-450 [facility] Serum or plasma albumin aubree urement (mass/volume)Ordered By: Dr. Au on 03-21-2023 Albumin [Mass/Vol] 3.3 g/dL 3.2-5.0 [facility] Serum or plasma calcium aubree urement (mass/volume)Ordered By: Dr. Au on 03-21-2023 Calcium [Mass/Vol] 9.6 mg/dL 8.5-10.1 [facility] Serum or plasma creatinine m easurement (mass/volume)Ordered By: Dr. Au on 03-21-2023 Creatinine [Mass/Vol] 2.81 mg/dL 0.70-1.30 [facility] Comment on above: The validity of the calculated GFR & GFRAA in patients over 70 years has not been determined. Clinical correlation is essential. Serum or plasma ferritin laurie surement (mass/volume)Ordered By: Dr. Au on 03-21-2023 Ferritin [Mass/Vol] 178 ng/mL 26-388 [facility] Serum or plasma iron saturat ion measurement (mass fraction)Ordered By: Dr. Au on 03-21-2023 Iron saturation [Mass fraction] 39.3 % 15.0-55.0 [facility] Serum or plasma urea nitroge n measurement (mass/volume)Ordered By: Dr. Au on 03-21-2023 Urea nitrogen [Mass/Vol] 65 mg/dL 7-18 [facility] Basophil percentageOrdered B y: Dr. Au on 02-21-2023 Basophil percentage 2.8 mg/dL 2.5-4.9 [facility] Bilirubin [Mass/Vol] 0.70 mg/dL 0.20-1.00 [facility] Comment on above: For patients on eltr ombopag therapy, use of Dimension [place] TBIL is not recommended. Chloride [Moles/Vol] 107 mmol/L 98-107 [facility] Cholesterol [Mass/Vol] 88 mg/dL <200 [facility] Comment on above: <200 mg/dL Desirable 200-240 mg/dL Borderline >240 mg/dL High Risk Glucose [Mass/Vol] 167 mg/dL 74-106 [facility] Comment on above: Fasting Glucose resu lt greater than or equal to 126 mg/dL suggests DIABETES MELLITUS per A.D.A. criteria. Potassium [Moles/Vol] 4.3 mmol/L 3.5-5.1 [facility] Protein [Mass/Vol] 7.6 g/dL 6.4-8.2 [facility] Sodium [Moles/Vol] 137 mmol/L 136-145 [facility] Triglyceride [Mass/Vol] 93 mg/dL <199 [facility] Comment on above: The drugs N-Acetylcy steine and Metamizole may falsely depress this assay.Serum Triglycerides Reference Interval Normal <150 mg/dL Borderline high 150 - 199 mg/dL High 200 - 499 mg/dL Very High > or = 500 mg/dL WBC (Bld) [#/Vol] 8.7 10*3/uL 4.4-11.0 [facility] Blood erythrocytes count (nu mber/volume)Ordered By: Dr. Au on 02-21-2023 RBC (Bld) [#/Vol] 3.38 10*6/uL 4.6-6.2 [facility] Blood hemoglobin measurement (mass/volume)Ordered By: Dr. Au on 02-21-2023 Hemoglobin (Bld) [Mass/Vol] 10.7 g/dL 13.0-16.5 [facility] Blood platelet mean volumeOr dered By: Dr. Au on 02-21-2023 Platelet mean volume (Bld) [Entitic vol] 10.6 fL 6.2-12.0 [facility] Determination of erythrocyte mean corpuscular volume (MCV)Ordered By: Dr. Au on 02-21-2023 MCV (RBC) [Entitic vol] 98.2 fL 80-94 [facility] Hematocrit Auto (Bld) [Volum e fraction]Ordered By: Dr. Au on 02-21-2023 Hematocrit (Bld) [Volume fraction] 33.2 % 40-54 [facility] Iron measurement (mass/mass) Ordered By: Dr. Au on 02-21-2023 Iron (Unsp spec) [Mass/Mass] 49 ug/dL 65-175 [facility] Laboratory - Chemistry and C hemistry - challengeOrdered By: Dr. Au on 02-21-2023 ALP [Catalytic activity/Vol] 137 U/L 45-117 [facility] ALT [Catalytic activity/Vol] 14 U/L 16-61 [facility] CO2 [Moles/Vol] 24.0 mmol/L 21.0-32.0 [facility] Globulin (S) [Mass/Vol] 4.5 g/dL 2.2-4.2 [facility] Urea nitrogen/Creatinine [Mass ratio] 17.2 mg/mg 10-20 [facility] Laboratory - Hematology and Cell countsOrdered By: Dr. Au on 02-21-2023 Erythrocyte distribution width (RBC) [Entitic vol] 52.2 fL 35.1-43.9 [facility] Erythrocyte distribution width (RBC) [Ratio] 14.5 % 11.6-14.6 [facility] MCH (RBC) [Entitic mass] 31.7 pg 27.0-32.0 [facility] MCHC Auto (RBC) [Mass/Vol]Or dered By: Dr. Au on 02-21-2023 MCHC (RBC) [Mass/Vol] 32.2 g/dL 32-36 [facility] No Panel InformationOrdered By: Dr. Au on 02-21-2023 Estimated GFR (MDRD) Amer 23 mL/min >60 [facility] Comment on above: GFR Calc Estimated GFR (MDRD) Non-Af Amer 19 mL/min >60 [facility] Comment on above: Non- GFR Calc Thyroid Stimulating Hormone (TSH) 4.77 uIU/mL 0.358-3.74 [facility] Total Iron Binding Capacity 201 ug/dL 250-450 [facility] Platelets bldOrdered By: Dr. Au on 02-21-2023 Platelets (Bld) [#/Vol] 147 10*3/uL 150-450 [facility] Serum or plasma albumin aubree urement (mass/volume)Ordered By: Dr. Au on 02-21-2023 Albumin [Mass/Vol] 3.1 g/dL 3.2-5.0 [facility] Serum or plasma albumin/glob ulin mass ratioOrdered By: Dr. Au on 02-21-2023 Albumin/Globulin [Mass ratio] 0.7 {ratio} 0.9-2.4 [facility] Serum or plasma calcium aubree urement (mass/volume)Ordered By: Dr. Au on 02-21-2023 Calcium [Mass/Vol] 8.5 mg/dL 8.5-10.1 [facility] Serum or plasma cholesterol in HDL measurement (mass/volume)Ordered By: Dr. Au on 02-21-2023 Cholesterol in HDL [Mass/Vol] 30 mg/dL >40 [facility] Comment on above: The drugs N-Acetylcy steine and Metamizole may falsely depress this assay. Reference Range HDL <40 mg/dL Low HDL Cholesterol HDL >or= 60 mg/dL High HDL Cholesterol Serum or plasma cholesterol in VLDL measurement (mass/volume)Ordered By: Dr. Au on 02-21-2023 Cholesterol in VLDL [Mass/Vol] 19 mg/dL 5-40 [facility] Serum or plasma creatinine m easurement (mass/volume)Ordered By: Dr. Au on 02-21-2023 Creatinine [Mass/Vol] 3.37 mg/dL 0.70-1.30 [facility] Comment on above: The validity of the calculated GFR & GFRAA in patients over 70 years has not been determined. Clinical correlation is essential. Serum or plasma ferritin laurie surement (mass/volume)Ordered By: Dr. Au on 02-21-2023 Ferritin [Mass/Vol] 167 ng/mL 26-388 [facility] Serum or plasma iron saturat ion measurement (mass fraction)Ordered By: Dr. Au on 02-21-2023 Iron saturation [Mass fraction] 24.4 % 15.0-55.0 [facility] Serum or plasma low density lipoprotein (LDL) cholesterol measurement (mass/volume)Ordered By: Dr. Au on 02-21-2023 Cholesterol in LDL [Mass/Vol] 39 mg/dL 0-130 [facility] Serum or plasma urea nitroge n measurement (mass/volume)Ordered By: Dr. Au on 02-21-2023 Urea nitrogen [Mass/Vol] 58 mg/dL 7-18 [facility] Thin prep Papanicolaou smear with manual screeningOrdered By: Dr. Au on 02-21-2023 Thin prep Papanicolaou smear with manual screening 14 U/L 15-37 [facility] Thin prep Papanicolaou smear with manual screening 6 5-15 [facility] Whole blood hemoglobin A1c/t otal hemoglobin ratio (mass fraction)Ordered By: Dr. Au on 02-21-2023 HbA1c (Bld) [Mass fraction] 5.6 % 3.8-5.6 [facility] Comment on above: Normal < 5.7 % Predi abetic 5.7 - 6.4 % Diabetic >or= 6.5 % Please note range changes. Absolute lymphocyte countOrd ered By: Dr. Au on 01-31-2023 Lymphocytes Auto (Unsp spec) [#/Vol] 1.94 10*3/uL 0.83-4.51 [facility] Basophil percentageOrdered B y: Dr. Au on 01-31-2023 Basophil percentage 4.1 mg/dL 2.5-4.9 [facility] Basophils/100 WBC (Bld) 0.5 % 0-1 [facility] Chloride [Moles/Vol] 103 mmol/L 98-107 [facility] Eosinophils/100 WBC (Bld) 3.3 % 0-5 [facility] Glucose [Mass/Vol] 145 mg/dL 74-106 [facility] Comment on above: Fasting Glucose resu lt greater than or equal to 126 mg/dL suggests DIABETES MELLITUS per A.D.A. criteria. Neutrophils (Bld) [#/Vol] 6.1 10*3/uL 2.0-7.7 [facility] Neutrophils/100 WBC (Bld) 67.5 % 47-70 [facility] Potassium [Moles/Vol] 4.6 mmol/L 3.5-5.1 [facility] Sodium [Moles/Vol] 139 mmol/L 136-145 [facility] WBC (Bld) [#/Vol] 9.1 10*3/uL 4.4-11.0 [facility] Blood erythrocytes count (nu mber/volume)Ordered By: Dr. Au on 01-31-2023 RBC (Bld) [#/Vol] 3.74 10*6/uL 4.6-6.2 [facility] Blood hemoglobin measurement (mass/volume)Ordered By: Dr. Au on 01-31-2023 Hemoglobin (Bld) [Mass/Vol] 11.7 g/dL 13.0-16.5 [facility] Blood lymphocytes/100 leukoc ytesOrdered By: Dr. Au on 01-31-2023 Lymphocytes/100 WBC (Bld) 21.3 % 19-41 [facility] Blood monocytes/100 leukocyt esOrdered By: Dr. Au on 01-31-2023 Monocytes/100 WBC (Bld) 6.9 % 0-10 [facility] Blood platelet mean volumeOr dered By: Dr. Au on 01-31-2023 Platelet mean volume (Bld) [Entitic vol] 10.4 fL 6.2-12.0 [facility] Determination of erythrocyte mean corpuscular volume (MCV)Ordered By: Dr. Au on 01-31-2023 MCV (RBC) [Entitic vol] 100.0 fL 80-94 [facility] Hematocrit Auto (Bld) [Volum e fraction]Ordered By: Dr. Au on 01-31-2023 Hematocrit (Bld) [Volume fraction] 37.4 % 40-54 [facility] Iron measurement (mass/mass) Ordered By: Dr. Au on 01-31-2023 Iron (Unsp spec) [Mass/Mass] 65 ug/dL 65-175 [facility] Laboratory - Chemistry and C hemistry - challengeOrdered By: Dr. Au on 01-31-2023 CO2 [Moles/Vol] 29.0 mmol/L 21.0-32.0 [facility] Urea nitrogen/Creatinine [Mass ratio] 22.1 mg/mg 10-20 [facility] Laboratory - Hematology and Cell countsOrdered By: Dr. Au on 01-31-2023 Erythrocyte distribution width (RBC) [Entitic vol] 51.0 fL 35.1-43.9 [facility] Erythrocyte distribution width (RBC) [Ratio] 14.3 % 11.6-14.6 [facility] Immature granulocytes/100 WBC (Bld) 0.500 % 0.0-0.9 [facility] Comment on above: IG% - Immature Granu locytes (promyelocytes, myelocytes and metamyelocytes) > 1% indicates that a LEFT SHIFT is Present. MCH (RBC) [Entitic mass] 31.3 pg 27.0-32.0 [facility] Nucleated RBC/100 WBC (Bld) [Ratio] 0 % 0-5 [facility] MCHC Auto (RBC) [Mass/Vol]Or dered By: Dr. Au on 01-31-2023 MCHC (RBC) [Mass/Vol] 31.3 g/dL 32-36 [facility] No Panel InformationOrdered By: Dr. Au on 01-31-2023 Estimated GFR (MDRD) Amer 29 mL/min >60 [facility] Comment on above: GFR Calc Estimated GFR (MDRD) Non-Af Amer 24 mL/min >60 [facility] Comment on above: Non- GFR Calc Parathyroid Hormone (Intact) 32.8 pg/mL 18.4-80.1 [facility] Total Iron Binding Capacity 265 ug/dL 250-450 [facility] Platelets bldOrdered By: Dr. Au on 01-31-2023 Platelets (Bld) [#/Vol] 167 10*3/uL 150-450 [facility] Serum or plasma albumin aubree urement (mass/volume)Ordered By: Dr. Au on 01-31-2023 Albumin [Mass/Vol] 3.1 g/dL 3.2-5.0 [facility] Serum or plasma calcium aubree urement (mass/volume)Ordered By: Dr. Au on 01-31-2023 Calcium [Mass/Vol] 9.6 mg/dL 8.5-10.1 [facility] Serum or plasma creatinine m easurement (mass/volume)Ordered By: Dr. Au on 01-31-2023 Creatinine [Mass/Vol] 2.76 mg/dL 0.70-1.30 [facility] Comment on above: The validity of the calculated GFR & GFRAA in patients over 70 years has not been determined. Clinical correlation is essential. Serum or plasma ferritin laurie surement (mass/volume)Ordered By: Dr. Au on 01-31-2023 Ferritin [Mass/Vol] 191 ng/mL 26-388 [facility] Serum or plasma iron saturat ion measurement (mass fraction)Ordered By: Dr. Au on 01-31-2023 Iron saturation [Mass fraction] 24.5 % 15.0-55.0 [facility] Serum or plasma urea nitroge n measurement (mass/volume)Ordered By: Dr. Au on 01-31-2023 Urea nitrogen [Mass/Vol] 61 mg/dL 7-18 [facility] Serum or plasma uric acid me asurement (mass/volume)Ordered By: Dr. Au on 01-31-2023 Urate [Mass/Vol] 6.2 mg/dL 3.5-7.2 [facility] Comment on above: The drugs N-Acetylcy steine and Metamizole may falsely depress this assay. Urine creatinine measurement (mass/volume)Ordered By: Dr. Au on 01-31-2023 Creatinine (U) [Mass/Vol] 119.00 mg/dL NO RANGE EST. [facility] Urine protein measurement (m ass/volume)Ordered By: Dr. Au on 01-31-2023 Protein (U) [Mass/Vol] 64.8 mg/dL 0.0-11.8 [facility] Urine protein/creatinine mas s ratioOrdered By: Dr. Au on 01-31-2023 Protein/Creatinine (U) [Mass ratio] 545 mg/g CRE 0-200 [facility] Absolute lymphocyte countOrd ered By: Dr. Au on 01-24-2023 Lymphocytes Auto (Unsp spec) [#/Vol] 1.96 10*3/uL 0.83-4.51 [facility] Basophil percentageOrdered B y: Dr. Au on 01-24-2023 Basophil percentage 3.7 mg/dL 2.5-4.9 [facility] Basophils/100 WBC (Bld) 0.4 % 0-1 [facility] Chloride [Moles/Vol] 105 mmol/L 98-107 [facility] Eosinophils/100 WBC (Bld) 2.6 % 0-5 [facility] Glucose [Mass/Vol] 182 mg/dL 74-106 [facility] Comment on above: Fasting Glucose resu lt greater than or equal to 126 mg/dL suggests DIABETES MELLITUS per A.D.A. criteria. Neutrophils (Bld) [#/Vol] 6.3 10*3/uL 2.0-7.7 [facility] Neutrophils/100 WBC (Bld) 69.4 % 47-70 [facility] Potassium [Moles/Vol] 4.7 mmol/L 3.5-5.1 [facility] Sodium [Moles/Vol] 141 mmol/L 136-145 [facility] WBC (Bld) [#/Vol] 9.1 10*3/uL 4.4-11.0 [facility] Blood erythrocytes count (nu mber/volume)Ordered By: Dr. Au on 01-24-2023 RBC (Bld) [#/Vol] 3.46 10*6/uL 4.6-6.2 [facility] Blood hemoglobin measurement (mass/volume)Ordered By: Dr. Au on 01-24-2023 Hemoglobin (Bld) [Mass/Vol] 10.9 g/dL 13.0-16.5 [facility] Blood lymphocytes/100 leukoc ytesOrdered By: Dr. Au on 01-24-2023 Lymphocytes/100 WBC (Bld) 21.4 % 19-41 [facility] Blood monocytes/100 leukocyt esOrdered By: Dr. Au on 01-24-2023 Monocytes/100 WBC (Bld) 5.8 % 0-10 [facility] Blood platelet mean volumeOr dered By: Dr. Au on 01-24-2023 Platelet mean volume (Bld) [Entitic vol] 10.3 fL 6.2-12.0 [facility] Determination of erythrocyte mean corpuscular volume (MCV)Ordered By: Dr. Au on 01-24-2023 MCV (RBC) [Entitic vol] 98.8 fL 80-94 [facility] Hematocrit Auto (Bld) [Volum e fraction]Ordered By: Dr. Au on 01-24-2023 Hematocrit (Bld) [Volume fraction] 34.2 % 40-54 [facility] Iron measurement (mass/mass) Ordered By: Dr. Au on 01-24-2023 Iron (Unsp spec) [Mass/Mass] 68 ug/dL 65-175 [facility] Laboratory - Chemistry and C hemistry - challengeOrdered By: Dr. Au on 01-24-2023 CO2 [Moles/Vol] 28.0 mmol/L 21.0-32.0 [facility] Urea nitrogen/Creatinine [Mass ratio] 22.6 mg/mg 10-20 [facility] Laboratory - Hematology and Cell countsOrdered By: Dr. Au on 01-24-2023 Erythrocyte distribution width (RBC) [Entitic vol] 50.6 fL 35.1-43.9 [facility] Erythrocyte distribution width (RBC) [Ratio] 14.2 % 11.6-14.6 [facility] Immature granulocytes/100 WBC (Bld) 0.400 % 0.0-0.9 [facility] Comment on above: IG% - Immature Granu locytes (promyelocytes, myelocytes and metamyelocytes) > 1% indicates that a LEFT SHIFT is Present. MCH (RBC) [Entitic mass] 31.5 pg 27.0-32.0 [facility] Nucleated RBC/100 WBC (Bld) [Ratio] 0 % 0-5 [facility] MCHC Auto (RBC) [Mass/Vol]Or dered By: Dr. Au on 01-24-2023 MCHC (RBC) [Mass/Vol] 31.9 g/dL 32-36 [facility] No Panel InformationOrdered By: Dr. Au on 01-24-2023 Estimated GFR (MDRD) Amer 30 mL/min >60 [facility] Comment on above: GFR Calc Estimated GFR (MDRD) Non-Af Amer 25 mL/min >60 [facility] Comment on above: Non- GFR Calc Total Iron Binding Capacity 202 ug/dL 250-450 [facility] Platelets bldOrdered By: Dr. Au on 01-24-2023 Platelets (Bld) [#/Vol] 149 10*3/uL 150-450 [facility] Serum or plasma albumin aubree urement (mass/volume)Ordered By: Dr. Au on 01-24-2023 Albumin [Mass/Vol] 3.0 g/dL 3.2-5.0 [facility] Serum or plasma calcium aubree urement (mass/volume)Ordered By: Dr. Au on 01-24-2023 Calcium [Mass/Vol] 9.5 mg/dL 8.5-10.1 [facility] Serum or plasma creatinine m easurement (mass/volume)Ordered By: Dr. Au on 01-24-2023 Creatinine [Mass/Vol] 2.65 mg/dL 0.70-1.30 [facility] Comment on above: The validity of the calculated GFR & GFRAA in patients over 70 years has not been determined. Clinical correlation is essential. Serum or plasma ferritin laurie surement (mass/volume)Ordered By: Dr. Au on 01-24-2023 Ferritin [Mass/Vol] 191 ng/mL 26-388 [facility] Serum or plasma iron saturat ion measurement (mass fraction)Ordered By: Dr. Au on 01-24-2023 Iron saturation [Mass fraction] 33.7 % 15.0-55.0 [facility] Serum or plasma urea nitroge n measurement (mass/volume)Ordered By: Dr. Au on 01-24-2023 Urea nitrogen [Mass/Vol] 60 mg/dL 7-18 [facility] Absolute lymphocyte countOrd ered By: Dr. Au on 12-28-2022 Lymphocytes Auto (Unsp spec) [#/Vol] 1.99 10*3/uL 0.83-4.51 [facility] Basophil percentageOrdered B y: Dr. Au on 12-28-2022 Basophil percentage 3.9 mg/dL 2.5-4.9 [facility] Basophils/100 WBC (Bld) 0.2 % 0-1 [facility] Chloride [Moles/Vol] 107 mmol/L 98-107 [facility] Eosinophils/100 WBC (Bld) 3.0 % 0-5 [facility] Glucose [Mass/Vol] 214 mg/dL 74-106 [facility] Comment on above: Glucose result great er than or equal to 200 mg/dLsuggests DIABETES MELLITUS per A.D.A. criteria. Neutrophils (Bld) [#/Vol] 6.4 10*3/uL 2.0-7.7 [facility] Neutrophils/100 WBC (Bld) 68.1 % 47-70 [facility] Potassium [Moles/Vol] 4.3 mmol/L 3.5-5.1 [facility] Sodium [Moles/Vol] 141 mmol/L 136-145 [facility] WBC (Bld) [#/Vol] 9.4 10*3/uL 4.4-11.0 [facility] Blood erythrocytes count (nu mber/volume)Ordered By: Dr. Au on 12-28-2022 RBC (Bld) [#/Vol] 3.66 10*6/uL 4.6-6.2 [facility] Blood hemoglobin measurement (mass/volume)Ordered By: Dr. Au on 12-28-2022 Hemoglobin (Bld) [Mass/Vol] 11.5 g/dL 13.0-16.5 [facility] Blood lymphocytes/100 leukoc ytesOrdered By: Dr. Au on 12-28-2022 Lymphocytes/100 WBC (Bld) 21.3 % 19-41 [facility] Blood monocytes/100 leukocyt esOrdered By: Dr. Au on 12-28-2022 Monocytes/100 WBC (Bld) 7.1 % 0-10 [facility] Blood platelet mean volumeOr dered By: Dr. Au on 12-28-2022 Platelet mean volume (Bld) [Entitic vol] 10.4 fL 6.2-12.0 [facility] Determination of erythrocyte mean corpuscular volume (MCV)Ordered By: Dr. Au on 12-28-2022 MCV (RBC) [Entitic vol] 97.0 fL 80-94 [facility] Hematocrit Auto (Bld) [Volum e fraction]Ordered By: Dr. Au on 12-28-2022 Hematocrit (Bld) [Volume fraction] 35.5 % 40-54 [facility] Iron measurement (mass/mass) Ordered By: Dr. Au on 12-28-2022 Iron (Unsp spec) [Mass/Mass] 54 ug/dL 65-175 [facility] Laboratory - Chemistry and C hemistry - challengeOrdered By: Dr. Au on 12-28-2022 CO2 [Moles/Vol] 28.0 mmol/L 21.0-32.0 [facility] Urea nitrogen/Creatinine [Mass ratio] 23.6 mg/mg 10-20 [facility] - Hematology and Cell countsOrdered By: Dr. Au on 12-28-2022 Erythrocyte distribution width (RBC) [Entitic vol] 50.2 fL 35.1-43.9 [facility] Erythrocyte distribution width (RBC) [Ratio] 14.3 % 11.6-14.6 [facility] Immature granulocytes/100 WBC (Bld) 0.300 % 0.0-0.9 [facility] Comment on above: IG% - Immature Granu locytes (promyelocytes, myelocytes and metamyelocytes) > 1% indicates that a LEFT SHIFT is Present. MCH (RBC) [Entitic mass] 31.4 pg 27.0-32.0 [facility] Nucleated RBC/100 WBC (Bld) [Ratio] 0 % 0-5 [facility] MCHC Auto (RBC) [Mass/Vol]Or dered By: Dr. Au on 12-28-2022 MCHC (RBC) [Mass/Vol] 32.4 g/dL 32-36 [facility] No Panel InformationOrdered By: Dr. Au on 12-28-2022 Estimated GFR (MDRD) Amer 30 mL/min >60 [facility] Comment on above: GFR Calc Estimated GFR (MDRD) Non-Af Amer 25 mL/min >60 [facility] Comment on above: Non- GFR Calc Total Iron Binding Capacity 244 ug/dL 250-450 [facility] Platelets bldOrdered By: Dr. Au on 12-28-2022 Platelets (Bld) [#/Vol] 148 10*3/uL 150-450 [facility] Serum or plasma albumin aubree urement (mass/volume)Ordered By: Dr. Au on 12-28-2022 Albumin [Mass/Vol] 3.1 g/dL 3.2-5.0 [facility] Serum or plasma calcium aubree urement (mass/volume)Ordered By: Dr. Au on 12-28-2022 Calcium [Mass/Vol] 9.7 mg/dL 8.5-10.1 [facility] Serum or plasma creatinine m easurement (mass/volume)Ordered By: Dr. Au on 12-28-2022 Creatinine [Mass/Vol] 2.63 mg/dL 0.70-1.30 [facility] Comment on above: The validity of the calculated GFR & GFRAA in patients over 70 years has not been determined. Clinical correlation is essential. Serum or plasma ferritin laurie surement (mass/volume)Ordered By: Dr. Au on 12-28-2022 Ferritin [Mass/Vol] 193 ng/mL 26-388 [facility] Serum or plasma iron saturat ion measurement (mass fraction)Ordered By: Dr. Au on 12-28-2022 Iron saturation [Mass fraction] 22.1 % 15.0-55.0 [facility] Serum or plasma urea nitroge n measurement (mass/volume)Ordered By: Dr. Au on 12-28-2022 Urea nitrogen [Mass/Vol] 62 mg/dL 7-18 [facility] Absolute lymphocyte countOrd ered By: Dr. Au on 12-02-2022 Lymphocytes Auto (Unsp spec) [#/Vol] 1.85 10*3/uL 0.83-4.51 [facility] Basophil percentageOrdered B y: Dr. Au on 12-02-2022 Basophil percentage 3.8 mg/dL 2.5-4.9 [facility] Basophils/100 WBC (Bld) 0.4 % 0-1 [facility] Chloride [Moles/Vol] 108 mmol/L 98-107 [facility] Eosinophils/100 WBC (Bld) 2.8 % 0-5 [facility] Glucose [Mass/Vol] 180 mg/dL 74-106 [facility] Comment on above: Fasting Glucose resu lt greater than or equal to 126 mg/dL suggests DIABETES MELLITUS per A.D.A. criteria. Neutrophils (Bld) [#/Vol] 5.7 10*3/uL 2.0-7.7 [facility] Neutrophils/100 WBC (Bld) 67.2 % 47-70 [facility] Potassium [Moles/Vol] 4.3 mmol/L 3.5-5.1 [facility] Sodium [Moles/Vol] 142 mmol/L 136-145 [facility] WBC (Bld) [#/Vol] 8.5 10*3/uL 4.4-11.0 [facility] Blood erythrocytes count (nu mber/volume)Ordered By: Dr. Au on 12-02-2022 RBC (Bld) [#/Vol] 3.44 10*6/uL 4.6-6.2 [facility] Blood hemoglobin measurement (mass/volume)Ordered By: Dr. Au on 12-02-2022 Hemoglobin (Bld) [Mass/Vol] 11.0 g/dL 13.0-16.5 [facility] Blood lymphocytes/100 leukoc ytesOrdered By: Dr. Au on 12-02-2022 Lymphocytes/100 WBC (Bld) 21.8 % 19-41 [facility] Blood monocytes/100 leukocyt esOrdered By: Dr. Au on 12-02-2022 Monocytes/100 WBC (Bld) 7.4 % 0-10 [facility] Blood platelet mean volumeOr dered By: Dr. Au on 12-02-2022 Platelet mean volume (Bld) [Entitic vol] 10.4 fL 6.2-12.0 [facility] Determination of erythrocyte mean corpuscular volume (MCV)Ordered By: Dr. Au on 12-02-2022 MCV (RBC) [Entitic vol] 98.3 fL 80-94 [facility] Hematocrit Auto (Bld) [Volum e fraction]Ordered By: Dr. Au on 12-02-2022 Hematocrit (Bld) [Volume fraction] 33.8 % 40-54 [facility] Iron measurement (mass/mass) Ordered By: Dr. Au on 12-02-2022 Iron (Unsp spec) [Mass/Mass] 64 ug/dL 65-175 [facility] - Chemistry and C hemistry - challengeOrdered By: Dr. Au on 12-02-2022 CO2 [Moles/Vol] 31.0 mmol/L 21.0-32.0 [facility] Urea nitrogen/Creatinine [Mass ratio] 23.0 mg/mg 10-20 [facility] - Hematology and Cell countsOrdered By: Dr. Au on 12-02-2022 Erythrocyte distribution width (RBC) [Entitic vol] 51.8 fL 35.1-43.9 [facility] Erythrocyte distribution width (RBC) [Ratio] 14.4 % 11.6-14.6 [facility] Immature granulocytes/100 WBC (Bld) 0.400 % 0.0-0.9 [facility] Comment on above: IG% - Immature Granu locytes (promyelocytes, myelocytes and metamyelocytes) > 1% indicates that a LEFT SHIFT is Present. MCH (RBC) [Entitic mass] 32.0 pg 27.0-32.0 [facility] Nucleated RBC/100 WBC (Bld) [Ratio] 0 % 0-5 [facility] MCHC Auto (RBC) [Mass/Vol]Or dered By: Dr. Au on 12-02-2022 MCHC (RBC) [Mass/Vol] 32.5 g/dL 32-36 [facility] No Panel InformationOrdered By: Dr. Au on 12-02-2022 Estimated GFR (MDRD) Amer 29 mL/min >60 [facility] Comment on above: GFR Calc Estimated GFR (MDRD) Non-Af Amer 24 mL/min >60 [facility] Comment on above: Non- GFR Calc Parathyroid Hormone (Intact) 16.7 pg/mL 18.4-80.1 [facility] Total Iron Binding Capacity 230 ug/dL 250-450 [facility] Platelets bldOrdered By: Dr. Au on 12-02-2022 Platelets (Bld) [#/Vol] 158 10*3/uL 150-450 [facility] Serum or plasma albumin aubree urement (mass/volume)Ordered By: Dr. Au on 12-02-2022 Albumin [Mass/Vol] 3.4 g/dL 3.2-5.0 [facility] Serum or plasma calcium aubree urement (mass/volume)Ordered By: Dr. Au on 12-02-2022 Calcium [Mass/Vol] 10.0 mg/dL 8.5-10.1 [facility] Serum or plasma creatinine m easurement (mass/volume)Ordered By: Dr. Au on 12-02-2022 Creatinine [Mass/Vol] 2.74 mg/dL 0.70-1.30 [facility] Comment on above: The validity of the calculated GFR & GFRAA in patients over 70 years has not been determined. Clinical correlation is essential. Serum or plasma ferritin laurie surement (mass/volume)Ordered By: Dr. Au on 12-02-2022 Ferritin [Mass/Vol] 185 ng/mL 26-388 [facility] Serum or plasma iron saturat ion measurement (mass fraction)Ordered By: Dr. Au on 12-02-2022 Iron saturation [Mass fraction] 27.8 % 15.0-55.0 [facility] Serum or plasma urea nitroge n measurement (mass/volume)Ordered By: Dr. Au on 12-02-2022 Urea nitrogen [Mass/Vol] 63 mg/dL 7-18 [facility] Basophil percentageOrdered B y: Dr. Espino on 11-24-2022 Bilirubin [Mass/Vol] 0.90 mg/dL 0.20-1.00 [facility] Comment on above: For patients on eltr ombopag therapy, use of Dimension [place] TBIL is not recommended. Chloride [Moles/Vol] 107 mmol/L 98-107 [facility] Cholesterol [Mass/Vol] 103 mg/dL <200 [facility] Comment on above: <200 mg/dL Desirable 200-240 mg/dL Borderline >240 mg/dL High Risk Glucose [Mass/Vol] 142 mg/dL 74-106 [facility] Comment on above: Fasting Glucose resu lt greater than or equal to 126 mg/dL suggests DIABETES MELLITUS per A.D.A. criteria. Potassium [Moles/Vol] 4.6 mmol/L 3.5-5.1 [facility] Protein [Mass/Vol] 7.6 g/dL 6.4-8.2 [facility] Sodium [Moles/Vol] 142 mmol/L 136-145 [facility] Triglyceride [Mass/Vol] 141 mg/dL <199 [facility] Comment on above: The drugs N-Acetylcy steine and Metamizole may falsely depress this assay.Serum Triglycerides Reference Interval Normal <150 mg/dL Borderline high 150 - 199 mg/dL High 200 - 499 mg/dL Very High > or = 500 mg/dL WBC (Bld) [#/Vol] 9.1 10*3/uL 4.4-11.0 [facility] Blood erythrocytes count (nu mber/volume)Ordered By: Dr. Espino on 11-24-2022 RBC (Bld) [#/Vol] 3.51 10*6/uL 4.6-6.2 [facility] Blood hemoglobin measurement (mass/volume)Ordered By: Dr. Espino on 11-24-2022 Hemoglobin (Bld) [Mass/Vol] 11.3 g/dL 13.0-16.5 [facility] Blood platelet mean volumeOr dered By: Dr. Espino on 11-24-2022 Platelet mean volume (Bld) [Entitic vol] 11.1 fL 6.2-12.0 [facility] Determination of erythrocyte mean corpuscular volume (MCV)Ordered By: Dr. Espino on 11-24-2022 MCV (RBC) [Entitic vol] 99.7 fL 80-94 [facility] Hematocrit Auto (Bld) [Volum e fraction]Ordered By: Dr. Espino on 11-24-2022 Hematocrit (Bld) [Volume fraction] 35.0 % 40-54 [facility] Laboratory - Chemistry and C hemistry - challengeOrdered By: Dr. Espino on 11-24-2022 ALP [Catalytic activity/Vol] 135 U/L 45-117 [facility] ALT [Catalytic activity/Vol] 17 U/L 16-61 [facility] CO2 [Moles/Vol] 30.0 mmol/L 21.0-32.0 [facility] Globulin (S) [Mass/Vol] 4.3 g/dL 2.2-4.2 [facility] Urea nitrogen/Creatinine [Mass ratio] 23.0 mg/mg 10-20 [facility] - Hematology and Cell countsOrdered By: Dr. Espino on 11-24-2022 Erythrocyte distribution width (RBC) [Entitic vol] 52.0 fL 35.1-43.9 [facility] Erythrocyte distribution width (RBC) [Ratio] 14.4 % 11.6-14.6 [facility] MCH (RBC) [Entitic mass] 32.2 pg 27.0-32.0 [facility] MCHC Auto (RBC) [Mass/Vol]Or dered By: Dr. Espino on 11-24-2022 MCHC (RBC) [Mass/Vol] 32.3 g/dL 32-36 [facility] No Panel InformationOrdered By: Dr. Espino on 11-24-2022 Estimated GFR (MDRD) Amer 33 mL/min >60 [facility] Comment on above: GFR Calc Estimated GFR (MDRD) Non-Af Amer 27 mL/min >60 [facility] Comment on above: Non- GFR Calc Thyroid Stimulating Hormone (TSH) 5.30 uIU/mL 0.358-3.74 [facility] Platelets bldOrdered By: Dr. Espino on 11-24-2022 Platelets (Bld) [#/Vol] 148 10*3/uL 150-450 [facility] Serum or plasma albumin aubree urement (mass/volume)Ordered By: Dr. Espino on 11-24-2022 Albumin [Mass/Vol] 3.3 g/dL 3.2-5.0 [facility] Serum or plasma albumin/glob ulin mass ratioOrdered By: Dr. Espino on 11-24-2022 Albumin/Globulin [Mass ratio] 0.8 {ratio} 0.9-2.4 [facility] Serum or plasma calcium aubree urement (mass/volume)Ordered By: Dr. Espino on 11-24-2022 Calcium [Mass/Vol] 9.0 mg/dL 8.5-10.1 [facility] Serum or plasma cholesterol in HDL measurement (mass/volume)Ordered By: Dr. Espino on 11-24-2022 Cholesterol in HDL [Mass/Vol] 29 mg/dL >40 [facility] Comment on above: The drugs N-Acetylcy steine and Metamizole may falsely depress this assay. Reference Range HDL <40 mg/dL Low HDL Cholesterol HDL >or= 60 mg/dL High HDL Cholesterol Serum or plasma cholesterol in VLDL measurement (mass/volume)Ordered By: Dr. Espino on 11-24-2022 Cholesterol in VLDL [Mass/Vol] 28 mg/dL 5-40 [facility] Serum or plasma creatinine m easurement (mass/volume)Ordered By: Dr. Espino on 11-24-2022 Creatinine [Mass/Vol] 2.44 mg/dL 0.70-1.30 [facility] Comment on above: The validity of the calculated GFR & GFRAA in patients over 70 years has not been determined. Clinical correlation is essential. Serum or plasma low density lipoprotein (LDL) cholesterol measurement (mass/volume)Ordered By: Dr. Espino on 11-24-2022 Cholesterol in LDL [Mass/Vol] 46 mg/dL 0-130 [facility] Serum or plasma urea nitroge n measurement (mass/volume)Ordered By: Dr. Espino on 11-24-2022 Urea nitrogen [Mass/Vol] 56 mg/dL 7-18 [facility] Thin prep Papanicolaou smear with manual screeningOrdered By: Dr. Espino on 11-24-2022 Thin prep Papanicolaou smear with manual screening 19 U/L 15-37 [facility] Thin prep Papanicolaou smear with manual screening 5 5-15 [facility] Whole blood hemoglobin A1c/t otal hemoglobin ratio (mass fraction)Ordered By: Dr. Espino on 11-24-2022 HbA1c (Bld) [Mass fraction] 5.8 % 3.8-5.6 [facility] Comment on above: Normal < 5.7 % Predi abetic 5.7 - 6.4 % Diabetic >or= 6.5 % Please note range changes. Absolute lymphocyte countOrd ered By: Dr. Au on 11-01-2022 Lymphocytes Auto (Unsp spec) [#/Vol] 2.34 10*3/uL 0.83-4.51 [facility] Basophil percentageOrdered B y: Dr. Au on 11-01-2022 Basophil percentage 3.7 mg/dL 2.5-4.9 [facility] Basophils/100 WBC (Bld) 0.4 % 0-1 [facility] Chloride [Moles/Vol] 105 mmol/L 98-107 [facility] Eosinophils/100 WBC (Bld) 2.1 % 0-5 [facility] Glucose [Mass/Vol] 168 mg/dL 74-106 [facility] Comment on above: Fasting Glucose resu lt greater than or equal to 126 mg/dL suggests DIABETES MELLITUS per A.D.A. criteria. Neutrophils (Bld) [#/Vol] 7.0 10*3/uL 2.0-7.7 [facility] Neutrophils/100 WBC (Bld) 67.9 % 47-70 [facility] Potassium [Moles/Vol] 4.0 mmol/L 3.5-5.1 [facility] Sodium [Moles/Vol] 140 mmol/L 136-145 [facility] WBC (Bld) [#/Vol] 10.3 10*3/uL 4.4-11.0 [facility] Blood erythrocytes count (nu mber/volume)Ordered By: Dr. Au on 11-01-2022 RBC (Bld) [#/Vol] 3.58 10*6/uL 4.6-6.2 [facility] Blood hemoglobin measurement (mass/volume)Ordered By: Dr. Au on 11-01-2022 Hemoglobin (Bld) [Mass/Vol] 11.2 g/dL 13.0-16.5 [facility] Blood lymphocytes/100 leukoc ytesOrdered By: Dr. Au on 11-01-2022 Lymphocytes/100 WBC (Bld) 22.7 % 19-41 [facility] Blood monocytes/100 leukocyt esOrdered By: Dr. Au on 11-01-2022 Monocytes/100 WBC (Bld) 6.5 % 0-10 [facility] Blood platelet mean volumeOr dered By: Dr. Au on 11-01-2022 Platelet mean volume (Bld) [Entitic vol] 10.0 fL 6.2-12.0 [facility] Determination of erythrocyte mean corpuscular volume (MCV)Ordered By: Dr. Au on 11-01-2022 MCV (RBC) [Entitic vol] 99.2 fL 80-94 [facility] Hematocrit Auto (Bld) [Volum e fraction]Ordered By: Dr. Au on 11-01-2022 Hematocrit (Bld) [Volume fraction] 35.5 % 40-54 [facility] Iron measurement (mass/mass) Ordered By: Dr. Au on 11-01-2022 Iron (Unsp spec) [Mass/Mass] 69 ug/dL 65-175 [facility] Laboratory - Chemistry and C hemistry - challengeOrdered By: Dr. Au on 11-01-2022 CO2 [Moles/Vol] 29.0 mmol/L 21.0-32.0 [facility] Urea nitrogen/Creatinine [Mass ratio] 21.5 mg/mg 10-20 [facility] Laboratory - Hematology and Cell countsOrdered By: Dr. Au on 11-01-2022 Erythrocyte distribution width (RBC) [Entitic vol] 51.2 fL 35.1-43.9 [facility] Erythrocyte distribution width (RBC) [Ratio] 14.4 % 11.6-14.6 [facility] Immature granulocytes/100 WBC (Bld) 0.400 % 0.0-0.9 [facility] Comment on above: IG% - Immature Granu locytes (promyelocytes, myelocytes and metamyelocytes) > 1% indicates that a LEFT SHIFT is Present. MCH (RBC) [Entitic mass] 31.3 pg 27.0-32.0 [facility] Nucleated RBC/100 WBC (Bld) [Ratio] 0 % 0-5 [facility] MCHC Auto (RBC) [Mass/Vol]Or dered By: Dr. Au on 11-01-2022 MCHC (RBC) [Mass/Vol] 31.5 g/dL 32-36 [facility] No Panel InformationOrdered By: Dr. Au on 11-01-2022 Estimated GFR (MDRD) Amer 30 mL/min >60 [facility] Comment on above: GFR Calc Estimated GFR (MDRD) Non-Af Amer 25 mL/min >60 [facility] Comment on above: Non- GFR Calc Total Iron Binding Capacity 228 ug/dL 250-450 [facility] Platelets bldOrdered By: Dr. Au on 11-01-2022 Platelets (Bld) [#/Vol] 155 10*3/uL 150-450 [facility] Serum or plasma albumin aubree urement (mass/volume)Ordered By: Dr. Au on 11-01-2022 Albumin [Mass/Vol] 3.3 g/dL 3.2-5.0 [facility] Serum or plasma calcium aubree urement (mass/volume)Ordered By: Dr. Au on 11-01-2022 Calcium [Mass/Vol] 9.6 mg/dL 8.5-10.1 [facility] Serum or plasma creatinine m easurement (mass/volume)Ordered By: Dr. Au on 11-01-2022 Creatinine [Mass/Vol] 2.61 mg/dL 0.70-1.30 [facility] Comment on above: The validity of the calculated GFR & GFRAA in patients over 70 years has not been determined. Clinical correlation is essential. Serum or plasma ferritin laurie surement (mass/volume)Ordered By: Dr. uA on 11-01-2022 Ferritin [Mass/Vol] 166 ng/mL 26-388 [facility] Serum or plasma iron saturat ion measurement (mass fraction)Ordered By: Dr. Au on 11-01-2022 Iron saturation [Mass fraction] 30.3 % 15.0-55.0 [facility] Serum or plasma urea nitroge n measurement (mass/volume)Ordered By: Dr. Au on 11-01-2022 Urea nitrogen [Mass/Vol] 56 mg/dL 7-18 [facility] Absolute lymphocyte countOrd ered By: Dr. Au on 10-04-2022 Lymphocytes Auto (Unsp spec) [#/Vol] 1.62 10*3/uL 0.83-4.51 [facility] Basophil percentageOrdered B y: Dr. Au on 10-04-2022 Basophil percentage 2.5 mg/dL 2.5-4.9 [facility] Basophils/100 WBC (Bld) 0.3 % 0-1 [facility] Chloride [Moles/Vol] 107 mmol/L 98-107 [facility] Eosinophils/100 WBC (Bld) 2.3 % 0-5 [facility] Glucose [Mass/Vol] 180 mg/dL 74-106 [facility] Comment on above: Fasting Glucose resu lt greater than or equal to 126 mg/dL suggests DIABETES MELLITUS per A.D.A. criteria. Neutrophils (Bld) [#/Vol] 6.5 10*3/uL 2.0-7.7 [facility] Neutrophils/100 WBC (Bld) 73.0 % 47-70 [facility] Potassium [Moles/Vol] 4.3 mmol/L 3.5-5.1 [facility] Sodium [Moles/Vol] 140 mmol/L 136-145 [facility] WBC (Bld) [#/Vol] 9.0 10*3/uL 4.4-11.0 [facility] Blood erythrocytes count (nu mber/volume)Ordered By: Dr. Au on 10-04-2022 RBC (Bld) [#/Vol] 3.42 10*6/uL 4.6-6.2 [facility] Blood hemoglobin measurement (mass/volume)Ordered By: Dr. Au on 10-04-2022 Hemoglobin (Bld) [Mass/Vol] 10.7 g/dL 13.0-16.5 [facility] Blood lymphocytes/100 leukoc ytesOrdered By: Dr. Au on 10-04-2022 Lymphocytes/100 WBC (Bld) 18.1 % 19-41 [facility] Blood monocytes/100 leukocyt esOrdered By: Dr. Au on 10-04-2022 Monocytes/100 WBC (Bld) 6.0 % 0-10 [facility] Blood platelet mean volumeOr dered By: Dr. Au on 10-04-2022 Platelet mean volume (Bld) [Entitic vol] 10.7 fL 6.2-12.0 [facility] Determination of erythrocyte mean corpuscular volume (MCV)Ordered By: Dr. Au on 10-04-2022 MCV (RBC) [Entitic vol] 98.8 fL 80-94 [facility] Hematocrit Auto (Bld) [Volum e fraction]Ordered By: Dr. Au on 10-04-2022 Hematocrit (Bld) [Volume fraction] 33.8 % 40-54 [facility] Iron measurement (mass/mass) Ordered By: Dr. Au on 10-04-2022 Iron (Unsp spec) [Mass/Mass] 56 ug/dL 65-175 [facility] Laboratory - Chemistry and C hemistry - challengeOrdered By: Dr. Au on 10-04-2022 CO2 [Moles/Vol] 29.0 mmol/L 21.0-32.0 [facility] Urea nitrogen/Creatinine [Mass ratio] 19.6 mg/mg 10-20 [facility] Laboratory - Hematology and Cell countsOrdered By: Dr. Au on 10-04-2022 Erythrocyte distribution width (RBC) [Entitic vol] 52.6 fL 35.1-43.9 [facility] Erythrocyte distribution width (RBC) [Ratio] 14.6 % 11.6-14.6 [facility] Immature granulocytes/100 WBC (Bld) 0.300 % 0.0-0.9 [facility] Comment on above: IG% - Immature Granu locytes (promyelocytes, myelocytes and metamyelocytes) > 1% indicates that a LEFT SHIFT is Present. MCH (RBC) [Entitic mass] 31.3 pg 27.0-32.0 [facility] Nucleated RBC/100 WBC (Bld) [Ratio] 0 % 0-5 [facility] MCHC Auto (RBC) [Mass/Vol]Or dered By: Dr. Au on 10-04-2022 MCHC (RBC) [Mass/Vol] 31.7 g/dL 32-36 [facility] No Panel InformationOrdered By: Dr. Au on 10-04-2022 Estimated GFR (MDRD) Amer 34 mL/min >60 [facility] Comment on above: GFR Calc Estimated GFR (MDRD) Non-Af Amer 28 mL/min >60 [facility] Comment on above: Non- GFR Calc Total Iron Binding Capacity 276 ug/dL 250-450 [facility] Platelets bldOrdered By: Dr. Au on 10-04-2022 Platelets (Bld) [#/Vol] 145 10*3/uL 150-450 [facility] Serum or plasma albumin aubree urement (mass/volume)Ordered By: Dr. Au on 10-04-2022 Albumin [Mass/Vol] 3.0 g/dL 3.2-5.0 [facility] Serum or plasma calcium aubree urement (mass/volume)Ordered By: Dr. Au on 10-04-2022 Calcium [Mass/Vol] 9.1 mg/dL 8.5-10.1 [facility] Serum or plasma creatinine m easurement (mass/volume)Ordered By: Dr. Au on 10-04-2022 Creatinine [Mass/Vol] 2.35 mg/dL 0.70-1.30 [facility] Comment on above: The validity of the calculated GFR & GFRAA in patients over 70 years has not been determined. Clinical correlation is essential. Serum or plasma ferritin laurie surement (mass/volume)Ordered By: Dr. Au on 10-04-2022 Ferritin [Mass/Vol] 205 ng/mL 26-388 [facility] Serum or plasma iron saturat ion measurement (mass fraction)Ordered By: Dr. Au on 10-04-2022 Iron saturation [Mass fraction] 20.3 % 15.0-55.0 [facility] Serum or plasma urea nitroge n measurement (mass/volume)Ordered By: Dr. Au on 10-04-2022 Urea nitrogen [Mass/Vol] 46 mg/dL 7-18 [facility] Absolute lymphocyte countOrd ered By: Dr. Au on 09-29-2022 Lymphocytes Auto (Unsp spec) [#/Vol] 1.94 10*3/uL 0.83-4.51 [facility] Basophil percentageOrdered B y: Dr. Au on 09-29-2022 Basophil percentage 3.0 mg/dL 2.5-4.9 [facility] Basophils/100 WBC (Bld) 0.4 % 0-1 [facility] Chloride [Moles/Vol] 105 mmol/L 98-107 [facility] Eosinophils/100 WBC (Bld) 2.3 % 0-5 [facility] Glucose [Mass/Vol] 121 mg/dL 74-106 [facility] Comment on above: Fasting Glucose resu lt from 100 to 125 mg/dL suggests IMPAIRED HOMEOSTASIS per A.D.A. criteria. Neutrophils (Bld) [#/Vol] 6.8 10*3/uL 2.0-7.7 [facility] Neutrophils/100 WBC (Bld) 70.7 % 47-70 [facility] Potassium [Moles/Vol] 4.0 mmol/L 3.5-5.1 [facility] Sodium [Moles/Vol] 139 mmol/L 136-145 [facility] WBC (Bld) [#/Vol] 9.6 10*3/uL 4.4-11.0 [facility] Blood erythrocytes count (nu mber/volume)Ordered By: Dr. Au on 09-29-2022 RBC (Bld) [#/Vol] 3.42 10*6/uL 4.6-6.2 [facility] Blood hemoglobin measurement (mass/volume)Ordered By: Dr. Au on 09-29-2022 Hemoglobin (Bld) [Mass/Vol] 10.9 g/dL 13.0-16.5 [facility] Blood lymphocytes/100 leukoc ytesOrdered By: Dr. Au on 09-29-2022 Lymphocytes/100 WBC (Bld) 20.2 % 19-41 [facility] Blood monocytes/100 leukocyt esOrdered By: Dr. Au on 09-29-2022 Monocytes/100 WBC (Bld) 5.9 % 0-10 [facility] Blood platelet mean volumeOr dered By: Dr. Au on 09-29-2022 Platelet mean volume (Bld) [Entitic vol] 10.8 fL 6.2-12.0 [facility] Determination of erythrocyte mean corpuscular volume (MCV)Ordered By: Dr. Au on 09-29-2022 MCV (RBC) [Entitic vol] 100.3 fL 80-94 [facility] Hematocrit Auto (Bld) [Volum e fraction]Ordered By: Dr. Au on 09-29-2022 Hematocrit (Bld) [Volume fraction] 34.3 % 40-54 [facility] Iron measurement (mass/mass) Ordered By: Dr. Au on 09-29-2022 Iron (Unsp spec) [Mass/Mass] 58 ug/dL 65-175 [facility] Laboratory - Chemistry and C hemistry - challengeOrdered By: Dr. Au on 09-29-2022 CO2 [Moles/Vol] 29.0 mmol/L 21.0-32.0 [facility] Urea nitrogen/Creatinine [Mass ratio] 23.3 mg/mg 10-20 [facility] Laboratory - Hematology and Cell countsOrdered By: Dr. Au on 09-29-2022 Erythrocyte distribution width (RBC) [Entitic vol] 53.1 fL 35.1-43.9 [facility] Erythrocyte distribution width (RBC) [Ratio] 14.7 % 11.6-14.6 [facility] Immature granulocytes/100 WBC (Bld) 0.500 % 0.0-0.9 [facility] Comment on above: IG% - Immature Granu locytes (promyelocytes, myelocytes and metamyelocytes) > 1% indicates that a LEFT SHIFT is Present. MCH (RBC) [Entitic mass] 31.9 pg 27.0-32.0 [facility] Nucleated RBC/100 WBC (Bld) [Ratio] 0 % 0-5 [facility] MCHC Auto (RBC) [Mass/Vol]Or dered By: Dr. Au on 09-29-2022 MCHC (RBC) [Mass/Vol] 31.8 g/dL 32-36 [facility] No Panel InformationOrdered By: Dr. Au on 09-29-2022 Estimated GFR (MDRD) Amer 36 mL/min >60 [facility] Comment on above: GFR Calc Estimated GFR (MDRD) Non-Af Amer 30 mL/min >60 [facility] Comment on above: Non- GFR Calc Parathyroid Hormone (Intact) 113.6 pg/mL 18.4-80.1 [facility] Total Iron Binding Capacity 220 ug/dL 250-450 [facility] Platelets bldOrdered By: Dr. Au on 09-29-2022 Platelets (Bld) [#/Vol] 163 10*3/uL 150-450 [facility] Serum or plasma albumin aubree urement (mass/volume)Ordered By: Dr. Au on 09-29-2022 Albumin [Mass/Vol] 3.0 g/dL 3.2-5.0 [facility] Serum or plasma calcium aubree urement (mass/volume)Ordered By: Dr. Au on 09-29-2022 Calcium [Mass/Vol] 8.8 mg/dL 8.5-10.1 [facility] Serum or plasma creatinine m easurement (mass/volume)Ordered By: Dr. Au on 09-29-2022 Creatinine [Mass/Vol] 2.27 mg/dL 0.70-1.30 [facility] Comment on above: The validity of the calculated GFR & GFRAA in patients over 70 years has not been determined. Clinical correlation is essential. Serum or plasma ferritin laurie surement (mass/volume)Ordered By: Dr. Au on 09-29-2022 Ferritin [Mass/Vol] 185 ng/mL 26-388 [facility] Serum or plasma iron saturat ion measurement (mass fraction)Ordered By: Dr. Au on 09-29-2022 Iron saturation [Mass fraction] 26.4 % 15.0-55.0 [facility] Serum or plasma urea nitroge n measurement (mass/volume)Ordered By: Dr. Au on 09-29-2022 Urea nitrogen [Mass/Vol] 53 mg/dL 7-18 [facility] Serum or plasma uric acid me asurement (mass/volume)Ordered By: Dr. Au on 09-29-2022 Urate [Mass/Vol] 6.3 mg/dL 3.5-7.2 [facility] Comment on above: The drugs N-Acetylcy steine and Metamizole may falsely depress this assay. Urine creatinine measurement (mass/volume)Ordered By: Dr. Au on 09-29-2022 Creatinine (U) [Mass/Vol] 54.30 mg/dL NO RANGE EST. [facility] Urine protein measurement (m ass/volume)Ordered By: Dr. Au on 09-29-2022 Protein (U) [Mass/Vol] 55.8 mg/dL 0.0-11.8 [facility] Urine protein/creatinine mas s ratioOrdered By: Dr. Au on 09-29-2022 Protein/Creatinine (U) [Mass ratio] 1028 mg/g CRE 0-200 [facility] Absolute lymphocyte countOrd ered By: Dr. Au on 09-06-2022 Lymphocytes Auto (Unsp spec) [#/Vol] 1.88 10*3/uL 0.83-4.51 [facility] Basophil percentageOrdered B y: Dr. Au on 09-06-2022 Basophil percentage 3.0 mg/dL 2.5-4.9 [facility] Basophils/100 WBC (Bld) 0.4 % 0-1 [facility] Chloride [Moles/Vol] 106 mmol/L 98-107 [facility] Eosinophils/100 WBC (Bld) 2.5 % 0-5 [facility] Glucose [Mass/Vol] 104 mg/dL 74-106 [facility] Comment on above: Fasting Glucose resu lt from 100 to 125 mg/dL suggests IMPAIRED HOMEOSTASIS per A.D.A. criteria. Neutrophils (Bld) [#/Vol] 7.0 10*3/uL 2.0-7.7 [facility] Neutrophils/100 WBC (Bld) 69.8 % 47-70 [facility] Potassium [Moles/Vol] 3.9 mmol/L 3.5-5.1 [facility] Sodium [Moles/Vol] 141 mmol/L 136-145 [facility] WBC (Bld) [#/Vol] 10.0 10*3/uL 4.4-11.0 [facility] Blood erythrocytes count (nu mber/volume)Ordered By: Dr. Au on 09-06-2022 RBC (Bld) [#/Vol] 3.44 10*6/uL 4.6-6.2 [facility] Blood hemoglobin measurement (mass/volume)Ordered By: Dr. Au on 09-06-2022 Hemoglobin (Bld) [Mass/Vol] 10.6 g/dL 13.0-16.5 [facility] Blood lymphocytes/100 leukoc ytesOrdered By: Dr. Au on 09-06-2022 Lymphocytes/100 WBC (Bld) 18.9 % 19-41 [facility] Blood monocytes/100 leukocyt esOrdered By: Dr. Au on 09-06-2022 Monocytes/100 WBC (Bld) 7.9 % 0-10 [facility] Blood platelet mean volumeOr dered By: Dr. Au on 09-06-2022 Platelet mean volume (Bld) [Entitic vol] 10.5 fL 6.2-12.0 [facility] Determination of erythrocyte mean corpuscular volume (MCV)Ordered By: Dr. Au on 09-06-2022 MCV (RBC) [Entitic vol] 98.5 fL 80-94 [facility] Hematocrit Auto (Bld) [Volum e fraction]Ordered By: Dr. Au on 09-06-2022 Hematocrit (Bld) [Volume fraction] 33.9 % 40-54 [facility] Iron measurement (mass/mass) Ordered By: Dr. Au on 09-06-2022 Iron (Unsp spec) [Mass/Mass] 52 ug/dL 65-175 [facility] Laboratory - Chemistry and C hemistry - challengeOrdered By: Dr. Au on 09-06-2022 CO2 [Moles/Vol] 30.0 mmol/L 21.0-32.0 [facility] Urea nitrogen/Creatinine [Mass ratio] 21.3 mg/mg 10-20 [facility] Laboratory - Hematology and Cell countsOrdered By: Dr. Au on 09-06-2022 Erythrocyte distribution width (RBC) [Entitic vol] 51.6 fL 35.1-43.9 [facility] Erythrocyte distribution width (RBC) [Ratio] 14.4 % 11.6-14.6 [facility] Immature granulocytes/100 WBC (Bld) 0.500 % 0.0-0.9 [facility] Comment on above: IG% - Immature Granu locytes (promyelocytes, myelocytes and metamyelocytes) > 1% indicates that a LEFT SHIFT is Present. MCH (RBC) [Entitic mass] 30.8 pg 27.0-32.0 [facility] Nucleated RBC/100 WBC (Bld) [Ratio] 0 % 0-5 [facility] MCHC Auto (RBC) [Mass/Vol]Or dered By: Dr. Au on 09-06-2022 MCHC (RBC) [Mass/Vol] 31.3 g/dL 32-36 [facility] No Panel InformationOrdered By: Dr. Au on 09-06-2022 Estimated GFR (MDRD) Amer 32 mL/min >60 [facility] Comment on above: GFR Calc Estimated GFR (MDRD) Non-Af Amer 26 mL/min >60 [facility] Comment on above: Non- GFR Calc Parathyroid Hormone (Intact) 33.7 pg/mL 18.4-80.1 [facility] Total Iron Binding Capacity 215 ug/dL 250-450 [facility] Platelets bldOrdered By: Dr. Au on 09-06-2022 Platelets (Bld) [#/Vol] 155 10*3/uL 150-450 [facility] Serum or plasma albumin aubree urement (mass/volume)Ordered By: Dr. Au on 09-06-2022 Albumin [Mass/Vol] 2.9 g/dL 3.2-5.0 [facility] Serum or plasma calcium aubree urement (mass/volume)Ordered By: Dr. Au on 09-06-2022 Calcium [Mass/Vol] 9.2 mg/dL 8.5-10.1 [facility] Serum or plasma creatinine m easurement (mass/volume)Ordered By: Dr. Au on 09-06-2022 Creatinine [Mass/Vol] 2.53 mg/dL 0.70-1.30 [facility] Comment on above: The validity of the calculated GFR & GFRAA in patients over 70 years has not been determined. Clinical correlation is essential. Serum or plasma ferritin laurie surement (mass/volume)Ordered By: Dr. Au on 09-06-2022 Ferritin [Mass/Vol] 172 ng/mL 26-388 [facility] Serum or plasma iron saturat ion measurement (mass fraction)Ordered By: Dr. Au on 09-06-2022 Iron saturation [Mass fraction] 24.2 % 15.0-55.0 [facility] Serum or plasma urea nitroge n measurement (mass/volume)Ordered By: Dr. Au on 09-06-2022 Urea nitrogen [Mass/Vol] 54 mg/dL 7-18 [facility] Basophil percentageOrdered B y: Dr. Espino on 08-27-2022 Bilirubin [Mass/Vol] 0.90 mg/dL 0.20-1.00 [facility] Comment on above: For patients on eltr ombopag therapy, use of Dimension [place] TBIL is not recommended. Chloride [Moles/Vol] 103 mmol/L 98-107 [facility] Glucose [Mass/Vol] 114 mg/dL 74-106 [facility] Comment on above: Fasting Glucose resu lt from 100 to 125 mg/dL suggests IMPAIRED HOMEOSTASIS per A.D.A. criteria. Potassium [Moles/Vol] 4.1 mmol/L 3.5-5.1 [facility] Protein [Mass/Vol] 8.0 g/dL 6.4-8.2 [facility] Sodium [Moles/Vol] 141 mmol/L 136-145 [facility] WBC (Bld) [#/Vol] 9.5 10*3/uL 4.4-11.0 [facility] Blood erythrocytes count (nu mber/volume)Ordered By: Dr. Espino on 08-27-2022 RBC (Bld) [#/Vol] 3.64 10*6/uL 4.6-6.2 [facility] Blood hemoglobin measurement (mass/volume)Ordered By: Dr. Espino on 08-27-2022 Hemoglobin (Bld) [Mass/Vol] 11.3 g/dL 13.0-16.5 [facility] Blood platelet mean volumeOr dered By: Dr. Espino on 08-27-2022 Platelet mean volume (Bld) [Entitic vol] 10.9 fL 6.2-12.0 [facility] Determination of erythrocyte mean corpuscular volume (MCV)Ordered By: Dr. Espino on 08-27-2022 MCV (RBC) [Entitic vol] 99.5 fL 80-94 [facility] Hematocrit Auto (Bld) [Volum e fraction]Ordered By: Dr. Espino on 08-27-2022 Hematocrit (Bld) [Volume fraction] 36.2 % 40-54 [facility] Laboratory - Chemistry and C hemistry - challengeOrdered By: Dr. Espino on 08-27-2022 ALP [Catalytic activity/Vol] 127 U/L 45-117 [facility] ALT [Catalytic activity/Vol] 19 U/L 16-61 [facility] CO2 [Moles/Vol] 32.0 mmol/L 21.0-32.0 [facility] Globulin (S) [Mass/Vol] 5.0 g/dL 2.2-4.2 [facility] Urea nitrogen/Creatinine [Mass ratio] 17.8 mg/mg 10-20 [facility] Laboratory - Hematology and Cell countsOrdered By: Dr. Espino on 08-27-2022 Erythrocyte distribution width (RBC) [Entitic vol] 51.9 fL 35.1-43.9 [facility] Erythrocyte distribution width (RBC) [Ratio] 14.4 % 11.6-14.6 [facility] MCH (RBC) [Entitic mass] 31.0 pg 27.0-32.0 [facility] MCHC Auto (RBC) [Mass/Vol]Or dered By: Dr. Espino on 08-27-2022 MCHC (RBC) [Mass/Vol] 31.2 g/dL 32-36 [facility] No Panel InformationOrdered By: Dr. Espino on 08-27-2022 Estimated GFR (MDRD) Amer 29 mL/min >60 [facility] Comment on above: GFR Calc Estimated GFR (MDRD) Non-Af Amer 24 mL/min >60 [facility] Comment on above: Non- GFR Calc Platelets bldOrdered By: Dr. Espino on 08-27-2022 Platelets (Bld) [#/Vol] 147 10*3/uL 150-450 [facility] Serum or plasma albumin aubree urement (mass/volume)Ordered By: Dr. sEpino on 08-27-2022 Albumin [Mass/Vol] 3.0 g/dL 3.2-5.0 [facility] Serum or plasma albumin/glob ulin mass ratioOrdered By: Dr. Espino on 08-27-2022 Albumin/Globulin [Mass ratio] 0.6 {ratio} 0.9-2.4 [facility] Serum or plasma calcium aubree urement (mass/volume)Ordered By: Dr. Espino on 08-27-2022 Calcium [Mass/Vol] 9.5 mg/dL 8.5-10.1 [facility] Serum or plasma creatinine m easurement (mass/volume)Ordered By: Dr. Espino on 08-27-2022 Creatinine [Mass/Vol] 2.69 mg/dL 0.70-1.30 [facility] Comment on above: The validity of the calculated GFR & GFRAA in patients over 70 years has not been determined. Clinical correlation is essential. Serum or plasma urea nitroge n measurement (mass/volume)Ordered By: Dr. Espino on 08-27-2022 Urea nitrogen [Mass/Vol] 48 mg/dL 7-18 [facility] Thin prep Papanicolaou smear with manual screeningOrdered By: Dr. Espino on 08-27-2022 Thin prep Papanicolaou smear with manual screening 20 U/L 15-37 [facility] Thin prep Papanicolaou smear with manual screening 6 5-15 [facility] Whole blood hemoglobin A1c/t otal hemoglobin ratio (mass fraction)Ordered By: Dr. Espino on 08-27-2022 HbA1c (Bld) [Mass fraction] 6.3 % 3.8-5.6 [facility] Comment on above: Normal < 5.7 % Predi abetic 5.7 - 6.4 % Diabetic >or= 6.5 % Please note range changes. Absolute lymphocyte counton 08-09-2022 Lymphocytes Auto (Unsp spec) [#/Vol] 2.02 10*3/uL 0.83-4.51 [facility] Work Phone: Basophil percentageon 2021 Basophil percentage 3.8 mg/dL 2.5-4.9 [facility] Work Phone: Basophils/100 WBC (Bld) 0.2 % 0-1 [facility] Work Phone: Chloride [Moles/Vol] 106 mmol/L 98-107 [facility] Work Phone: Eosinophils/100 WBC (Bld) 3.5 % 0-5 [facility] Work Phone: Glucose [Mass/Vol] 114 mg/dL 74-106 [facility] Work Phone: Comment on above: Fasting Glucose resu lt from 100 to 125 mg/dL suggests IMPAIRED HOMEOSTASIS per A.D.A. criteria. Neutrophils (Bld) [#/Vol] 6.9 10*3/uL 2.0-7.7 [facility] Work Phone: Neutrophils/100 WBC (Bld) 68.8 % 47-70 [facility] Work Phone: Potassium [Moles/Vol] 4.3 mmol/L 3.5-5.1 [facility] Work Phone: Sodium [Moles/Vol] 141 mmol/L 136-145 [facility] Work Phone: [phone] WBC (Bld) [#/Vol] 10.0 10*3/uL 4.4-11.0 [facility] Work Phone: [phone] Blood erythrocytes count (nu mber/volume)on 08-09-2022 RBC (Bld) [#/Vol] 3.45 10*6/uL 4.6-6.2 [facility] Work Phone: Blood hemoglobin measurement (mass/volume)on 08-09-2022 Hemoglobin (Bld) [Mass/Vol] 11.2 g/dL 13.0-16.5 [facility] Work Phone: [phone] Blood lymphocytes/100 leukoc yteson 08-09-2022 Lymphocytes/100 WBC (Bld) 20.2 % 19-41 [facility] Work Phone: [phone] Blood monocytes/100 leukocyt eson 08-09-2022 Monocytes/100 WBC (Bld) 6.9 % 0-10 [facility] Work Phone: [phone] Blood platelet mean volumeon 08-09-2022 Platelet mean volume (Bld) [Entitic vol] 10.0 fL 6.2-12.0 [facility] Work Phone: [phone] Determination of erythrocyte mean corpuscular volume (MCV)on 08-09-2022 MCV (RBC) [Entitic vol] 98.6 fL 80-94 [facility] Work Phone: [phone] Hematocrit Auto (Bld) [Volum e fraction]on 08-09-2022 Hematocrit (Bld) [Volume fraction] 34.0 % 40-54 [facility] Work Phone: [phone] Iron measurement (mass/mass) on 08-09-2022 Iron (Unsp spec) [Mass/Mass] 74 ug/dL 65-175 [facility] Work Phone: Laboratory - Chemistry and C hemistry - challengeon 08-09-2022 CO2 [Moles/Vol] 29.0 mmol/L 21.0-32.0 [facility] Work Phone: [phone] Urea nitrogen/Creatinine [Mass ratio] 24.0 mg/mg 10-20 [facility] Work Phone: [phone] Laboratory - Hematology and Cell countson 08-09-2022 Erythrocyte distribution width (RBC) [Entitic vol] 52.4 fL 35.1-43.9 [facility] Work Phone: [phone] Erythrocyte distribution width (RBC) [Ratio] 14.6 % 11.6-14.6 [facility] Work Phone: [phone] Immature granulocytes/100 WBC (Bld) 0.400 % 0.0-0.9 [facility] Work Phone: [phone] Comment on above: IG% - Immature Granu locytes (promyelocytes, myelocytes and metamyelocytes) > 1% indicates that a LEFT SHIFT is Present. MCH (RBC) [Entitic mass] 32.5 pg 27.0-32.0 [facility] Work Phone: [phone] Nucleated RBC/100 WBC (Bld) [Ratio] 0 % 0-5 [facility] Work Phone: [phone] MCHC Auto (RBC) [Mass/Vol]on 08-09-2022 MCHC (RBC) [Mass/Vol] 32.9 g/dL 32-36 [facility] Work Phone: No Panel Informationon 08-09 Estimated GFR (MDRD) Amer 27 mL/min >60 [facility] Work Phone: [phone] Comment on above: GFR Calc Estimated GFR (MDRD) Non-Af Amer 23 mL/min >60 [facility] Work Phone: [phone] Comment on above: Non- GFR Calc Total Iron Binding Capacity 217 ug/dL 250-450 [facility] Work Phone: [phone] Platelets bldon 08-09-2022 Platelets (Bld) [#/Vol] 147 10*3/uL 150-450 [facility] Work Phone: [phone] Serum or plasma albumin aubree urement (mass/volume)on 08-09-2022 Albumin [Mass/Vol] 3.1 g/dL 3.2-5.0 [facility] Work Phone: Serum or plasma calcium aubree urement (mass/volume)on 08-09-2022 Calcium [Mass/Vol] 10.8 mg/dL 8.5-10.1 [facility] Work Phone: Serum or plasma creatinine m easurement (mass/volume)on 08-09-2022 Creatinine [Mass/Vol] 2.87 mg/dL 0.70-1.30 [facility]: Comment on above: The validity of the calculated GFR & GFRAA in patients over 70 years has not been determined. Clinical correlation is essential. Serum or plasma ferritin laurie surement (mass/volume)on 08-09-2022 Ferritin [Mass/Vol] 194 ng/mL 26-388 [facility] Work Phone: Serum or plasma iron saturat ion measurement (mass fraction)on 08-09-2022 Iron saturation [Mass fraction] 34.1 % 15.0-55.0 [facility] Work Phone: Serum or plasma urea nitroge n measurement (mass/volume)on 08-09-2022 Urea nitrogen [Mass/Vol] 69 mg/dL 7-18 [facility] Work Phone: INR in Blood by Coagulation assayon 07-16-2022 INR Coag (Bld) [Relative time] 1.7 {INR} [facility] Work Phone: Laboratory - Coagulationon 0 07-16-2022 PT Coag (PPP) [Time] 19.5 s 11.7-14.9 [facility] Work Phone: Absolute lymphocyte counton 07-12-2022 Lymphocytes Auto (Unsp spec) [#/Vol] 1.55 10*3/uL 0.83-4.51 [facility] Work Phone: Basophil percentageon 2021 Basophil percentage 2.9 mg/dL 2.5-4.9 [facility] Work Phone: Basophils/100 WBC (Bld) 0.4 % 0-1 [facility] Work Phone: Chloride [Moles/Vol] 107 mmol/L 98-107 [facility] Work Phone: Eosinophils/100 WBC (Bld) 2.8 % 0-5 [facility] Work Phone: Glucose [Mass/Vol] 182 mg/dL 74-106 [facility] Work Phone: Comment on above: Fasting Glucose resu lt greater than or equal to 126 mg/dL suggests DIABETES MELLITUS per A.D.A. criteria. Neutrophils (Bld) [#/Vol] 6.0 10*3/uL 2.0-7.7 [facility] Work Phone: Neutrophils/100 WBC (Bld) 70.9 % 47-70 [facility] Work Phone: Potassium [Moles/Vol] 4.2 mmol/L 3.5-5.1 [facility] Work Phone: Sodium [Moles/Vol] 139 mmol/L 136-145 [facility] Work Phone: WBC (Bld) [#/Vol] 8.5 10*3/uL 4.4-11.0 [facility] Work Phone: Blood erythrocytes count (nu mber/volume)on 07-12-2022 RBC (Bld) [#/Vol] 3.25 10*6/uL 4.6-6.2 [facility] Work Phone: Blood hemoglobin measurement (mass/volume)on 07-12-2022 Hemoglobin (Bld) [Mass/Vol] 10.3 g/dL 13.0-16.5 [facility] Work Phone: Blood lymphocytes/100 leukoc yteson 07-12-2022 Lymphocytes/100 WBC (Bld) 18.2 % 19-41 [facility] Work Phone: Blood monocytes/100 leukocyt eson 07-12-2022 Monocytes/100 WBC (Bld) 6.9 % 0-10 [facility] Work Phone: [phone] Blood platelet mean volumeon 07-12-2022 Platelet mean volume (Bld) [Entitic vol] 10.7 fL 6.2-12.0 [facility] Work Phone: [phone] Determination of erythrocyte mean corpuscular volume (MCV)on 07-12-2022 MCV (RBC) [Entitic vol] 97.2 fL 80-94 [facility] Work Phone: [phone] Hematocrit Auto (Bld) [Volum e fraction]on 07-12-2022 Hematocrit (Bld) [Volume fraction] 31.6 % 40-54 [facility] Work Phone: [phone] Iron measurement (mass/mass) on 07-12-2022 Iron (Unsp spec) [Mass/Mass] 66 ug/dL 65-175 [facility] Work Phone: [phone] Laboratory - Chemistry and C hemistry - challengeon 07-12-2022 CO2 [Moles/Vol] 27.0 mmol/L 21.0-32.0 [facility] Work Phone: [phone] Urea nitrogen/Creatinine [Mass ratio] 24.0 mg/mg 10-20 [facility] Work Phone: [phone] Laboratory - Hematology and Cell countson 07-12-2022 Erythrocyte distribution width (RBC) [Entitic vol] 50.8 fL 35.1-43.9 [facility] Work Phone: [phone] Erythrocyte distribution width (RBC) [Ratio] 14.6 % 11.6-14.6 [facility] Work Phone: [phone] Immature granulocytes/100 WBC (Bld) 0.800 % 0.0-0.9 [facility] Work Phone: [phone] Comment on above: IG% - Immature Granu locytes (promyelocytes, myelocytes and metamyelocytes) > 1% indicates that a LEFT SHIFT is Present. MCH (RBC) [Entitic mass] 31.7 pg 27.0-32.0 [facility] Work Phone: Nucleated RBC/100 WBC (Bld) [Ratio] 0 % 0-5 [facility] Work Phone: [phone] MCHC Auto (RBC) [Mass/Vol]on 07-12-2022 MCHC (RBC) [Mass/Vol] 32.6 g/dL 32-36 [facility] Work Phone: No Panel Informationon 07-12 Estimated GFR (MDRD) Amer 30 mL/min >60 [facility] Work Phone: Comment on above: GFR Calc Estimated GFR (MDRD) Non-Af Amer 25 mL/min >60 [facility] Work Phone: Comment on above: Non- GFR Calc Total Iron Binding Capacity 228 ug/dL 250-450 [facility] Work Phone: [phone] Platelets bldon 07-12-2022 Platelets (Bld) [#/Vol] 154 10*3/uL 150-450 [facility] Work Phone: [phone] Serum or plasma albumin aubree urement (mass/volume)on 07-12-2022 Albumin [Mass/Vol] 2.8 g/dL 3.2-5.0 [facility] Work Phone: [phone] Serum or plasma calcium aubree urement (mass/volume)on 07-12-2022 Calcium [Mass/Vol] 9.2 mg/dL 8.5-10.1 [facility] Work Phone: [phone] Serum or plasma creatinine m easurement (mass/volume)on 07-12-2022 Creatinine [Mass/Vol] 2.63 mg/dL 0.70-1.30 [facility] Work Phone: Comment on above: The validity of the calculated GFR & GFRAA in patients over 70 years has not been determined. Clinical correlation is essential. Serum or plasma ferritin laurie surement (mass/volume)on 07-12-2022 Ferritin [Mass/Vol] 227 ng/mL 26-388 [facility] Work Phone: [phone] Serum or plasma iron saturat ion measurement (mass fraction)on 07-12-2022 Iron saturation [Mass fraction] 28.9 % 15.0-55.0 [facility] Work Phone: [phone] Serum or plasma urea nitroge n measurement (mass/volume)on 07-12-2022 Urea nitrogen [Mass/Vol] 63 mg/dL 7-18 [facility] Work Phone: Basophil percentageon 2021 Bilirubin [Mass/Vol] 0.90 mg/dL 0.20-1.00 [facility] Work Phone: [phone] Comment on above: For patients on eltr ombopag therapy, use of Dimension [place] TBIL is not recommended. Chloride [Moles/Vol] 104 mmol/L 98-107 [facility] Work Phone: [phone] Glucose [Mass/Vol] 147 mg/dL 74-106 [facility] Work Phone: [phone] Comment on above: Fasting Glucose resu lt greater than or equal to 126 mg/dL suggests DIABETES MELLITUS per A.D.A. criteria. Potassium [Moles/Vol] 4.6 mmol/L 3.5-5.1 [facility] Work Phone: [phone] Protein [Mass/Vol] 8.2 g/dL 6.4-8.2 [facility] Work Phone: [phone] Sodium [Moles/Vol] 137 mmol/L 136-145 [facility] Work Phone: [phone] WBC (Bld) [#/Vol] 9.1 10*3/uL 4.4-11.0 [facility] Work Phone: [phone] Blood erythrocytes count (nu mber/volume)on 07-09-2022 RBC (Bld) [#/Vol] 3.47 10*6/uL 4.6-6.2 [facility] Work Phone: [phone] Blood hemoglobin measurement (mass/volume)on 07-09-2022 Hemoglobin (Bld) [Mass/Vol] 10.8 g/dL 13.0-16.5 [facility] Work Phone: Blood platelet mean volumeon 07-09-2022 Platelet mean volume (Bld) [Entitic vol] 11.0 fL 6.2-12.0 [facility] Work Phone: Determination of erythrocyte mean corpuscular volume (MCV)on 07-09-2022 MCV (RBC) [Entitic vol] 98.8 fL 80-94 [facility] Work Phone: Hematocrit Auto (Bld) [Volum e fraction]on 07-09-2022 Hematocrit (Bld) [Volume fraction] 34.3 % 40-54 [facility] Work Phone: INR in Blood by Coagulation assayon 07-09-2022 INR Coag (Bld) [Relative time] 2.7 {INR} [facility] Work Phone: Laboratory - Chemistry and C hemistry - challengeon 07-09-2022 ALP [Catalytic activity/Vol] 145 U/L 45-117 [facility] Work Phone: ALT [Catalytic activity/Vol] 19 U/L 16-61 [facility] Work Phone: CO2 [Moles/Vol] 29.0 mmol/L 21.0-32.0 [facility] Work Phone: Globulin (S) [Mass/Vol] 5.2 g/dL 2.2-4.2 [facility] Work Phone: Natriuretic peptide B (Bld) [Mass/Vol] 265.9 pg/mL 0-100 [facility] Work Phone: Urea nitrogen/Creatinine [Mass ratio] 26.0 mg/mg 10-20 [facility] Work Phone: Laboratory - Coagulationon 0 07-09-2022 PT Coag (PPP) [Time] 28.2 s 11.7-14.9 [facility] Work Phone: Laboratory - Hematology and Cell countson 07-09-2022 Erythrocyte distribution width (RBC) [Entitic vol] 51.2 fL 35.1-43.9 [facility] Work Phone: Erythrocyte distribution width (RBC) [Ratio] 14.2 % 11.6-14.6 [facility] Work Phone: MCH (RBC) [Entitic mass] 31.1 pg 27.0-32.0 [facility] Work Phone: MCHC Auto (RBC) [Mass/Vol]on 07-09-2022 MCHC (RBC) [Mass/Vol] 31.5 g/dL 32-36 [facility] Work Phone: No Panel Informationon 07-09 Estimated GFR (MDRD) Amer 32 mL/min >60 [facility] Work Phone: Comment on above: GFR Calc Estimated GFR (MDRD) Non-Af Amer 27 mL/min >60 [facility] Work Phone: Comment on above: Non- GFR Calc Platelets bldon 07-09-2022 Platelets (Bld) [#/Vol] 148 10*3/uL 150-450 [facility] Work Phone: Serum or plasma albumin aubree urement (mass/volume)on 07-09-2022 Albumin [Mass/Vol] 3.0 g/dL 3.2-5.0 [facility] Work Phone: Serum or plasma albumin/glob ulin mass ratioon 07-09-2022 Albumin/Globulin [Mass ratio] 0.6 {ratio} 0.9-2.4 [facility] Work Phone: [phone] Serum or plasma calcium aubree urement (mass/volume)on 07-09-2022 Calcium [Mass/Vol] 9.0 mg/dL 8.5-10.1 [facility] Work Phone: [phone] Serum or plasma creatinine m easurement (mass/volume)on 07-09-2022 Creatinine [Mass/Vol] 2.50 mg/dL 0.70-1.30 [facility] Work Phone: Comment on above: The validity of the calculated GFR & GFRAA in patients over 70 years has not been determined. Clinical correlation is essential. Serum or plasma urea nitroge n measurement (mass/volume)on 07-09-2022 Urea nitrogen [Mass/Vol] 65 mg/dL 7-18 [facility] Work Phone: Thin prep Papanicolaou smear with manual screeningon 07-09-2022 Thin prep Papanicolaou smear with manual screening 24 U/L 15-37 [facility] Work Phone: [phone] Thin prep Papanicolaou smear with manual screening 4 5-15 [facility] Work Phone: Basophil percentageon 2021 Bilirubin [Mass/Vol] 0.60 mg/dL 0.20-1.00 [facility] Work Phone: [phone] Comment on above: For patients on eltr ombopag therapy, use of Dimension [place] TBIL is not recommended. Chloride [Moles/Vol] 105 mmol/L 98-107 [facility] Work Phone: [phone] Cholesterol [Mass/Vol] 92 mg/dL <200 [facility] Work Phone: Comment on above: <200 mg/dL Desirable 200-240 mg/dL Borderline >240 mg/dL High Risk Glucose [Mass/Vol] 114 mg/dL 74-106 [facility] Work Phone: Comment on above: Fasting Glucose resu lt from 100 to 125 mg/dL suggests IMPAIRED HOMEOSTASIS per A.D.A. criteria. Potassium [Moles/Vol] 4.5 mmol/L 3.5-5.1 [facility] Work Phone: [phone] Protein [Mass/Vol] 8.0 g/dL 6.4-8.2 [facility] Work Phone: [phone] Sodium [Moles/Vol] 139 mmol/L 136-145 [facility] Work Phone: [phone] Triglyceride [Mass/Vol] 114 mg/dL <199 [facility] Work Phone: [phone] Comment on above: The drugs N-Acetylcy steine and Metamizole may falsely depress this assay.Serum Triglycerides Reference Interval Normal <150 mg/dL Borderline high 150 - 199 mg/dL High 200 - 499 mg/dL Very High > or = 500 mg/dL INR in Blood by Coagulation assayon 06-18-2022 INR Coag (Bld) [Relative time] 2.8 {INR} [facility] Work Phone: Laboratory - Chemistry and C hemistry - challengeon 06-18-2022 ALP [Catalytic activity/Vol] 132 U/L 45-117 [facility] Work Phone: [phone] ALT [Catalytic activity/Vol] 19 U/L 16-61 [facility] Work Phone: [phone] CO2 [Moles/Vol] 30.0 mmol/L 21.0-32.0 [facility] Work Phone: [phone] Free T4 [Mass/Vol] 0.80 ng/dL 0.76-1.46 [facility] Work Phone: [phone] Globulin (S) [Mass/Vol] 5.0 g/dL 2.2-4.2 [facility] Work Phone: [phone] Urea nitrogen/Creatinine [Mass ratio] 19.9 mg/mg 10-20 [facility] Work Phone: [phone] Laboratory - Coagulationon 0 06-18-2022 PT Coag (PPP) [Time] 29.3 s 11.7-14.9 [facility] Work Phone: No Panel Informationon 06-18 Estimated GFR (MDRD) Amer 29 mL/min >60 [facility] Work Phone: [phone] Comment on above: GFR Calc Estimated GFR (MDRD) Non-Af Amer 24 mL/min >60 [facility] Work Phone: [phone] Comment on above: Non- GFR Calc Hepatitis C Antibody Non-Reactive Nonreactive [facility] Work Phone: [phone] Comment on above: Non Reactive: < 0.8 Equivocal: >/= 0.8 to < 1.0 Reactive: >/= 1.0The CDC recommends that a reactive/equivocal HCV antibody result be followed up by the HCV Nucleic Acid Amplificationtest (656881) Thyroid Stimulating Hormone (TSH) 5.65 uIU/mL 0.358-3.74 [facility] Work Phone: Urine Microalbumin/Creatinine Ratio 173.8 mg/g CRE <30 [facility] Work Phone: Vitamin D 25-Hydroxy 48.5 ng/mL [facility] Work Phone: Comment on above: Vitamin D 25(OH) Sta tus Range Deficiency <20 ng/mL (50nmol/L) Insufficiency 20 - 30 ng/mL (50 - 75 nmol/L) Sufficiency 30 - 100 ng/mL (75 - 250 nmol/L) Toxicity >100 ng/mL (>250 nmol/L) Serum or plasma albumin aubree urement (mass/volume)on 06-18-2022 Albumin [Mass/Vol] 3.0 g/dL 3.2-5.0 [facility] Work Phone: Serum or plasma albumin/glob ulin mass ratioon 06-18-2022 Albumin/Globulin [Mass ratio] 0.6 {ratio} 0.9-2.4 [facility] Work Phone: Serum or plasma calcium aubree urement (mass/volume)on 06-18-2022 Calcium [Mass/Vol] 9.3 mg/dL 8.5-10.1 [facility] Work Phone: Serum or plasma cholesterol in HDL measurement (mass/volume)on 06-18-2022 Cholesterol in HDL [Mass/Vol] 31 mg/dL >40 [facility] Work Phone: Comment on above: The drugs N-Acetylcy steine and Metamizole may falsely depress this assay. Reference Range HDL <40 mg/dL Low HDL Cholesterol HDL >or= 60 mg/dL High HDL Cholesterol Serum or plasma cholesterol in VLDL measurement (mass/volume)on 06-18-2022 Cholesterol in VLDL [Mass/Vol] 23 mg/dL 5-40 [facility] Work Phone: [phone] Serum or plasma creatinine m easurement (mass/volume)on 07-22-2022 Creatinine [Mass/Vol] 2.76 mg/dL 0.70-1.30 [facility] Work Phone: Comment on above: The validity of the calculated GFR & GFRAA in patients over 70 years has not been determined. Clinical correlation is essential. Serum or plasma low density lipoprotein (LDL) cholesterol measurement (mass/volume)on 06-18-2022 Cholesterol in LDL [Mass/Vol] 38 mg/dL 0-130 [facility] Work Phone: Serum or plasma urea nitroge n measurement (mass/volume)on 06-18-2022 Urea nitrogen [Mass/Vol] 55 mg/dL 7-18 [facility] Work Phone: Thin prep Papanicolaou smear with manual screeningon 06-18-2022 Thin prep Papanicolaou smear with manual screening 19 U/L 15-37 [facility] Work Phone: Thin prep Papanicolaou smear with manual screening 4 5-15 [facility] Work Phone: Thin prep Papanicolaou smear with manual screening 285.0 mg/L NO RANGE EST. [facility] Work Phone: Urine creatinine measurement (mass/volume)on 06-18-2022 Creatinine (U) [Mass/Vol] 164.00 mg/dL NO RANGE EST. [facility] Work Phone: Absolute lymphocyte counton 06-14-2022 Lymphocytes Auto (Unsp spec) [#/Vol] 1.51 10*3/uL 0.83-4.51 [facility] Work Phone: Basophil percentageon 2021 Basophil percentage 2.6 mg/dL 2.5-4.9 [facility] Work Phone: Basophils/100 WBC (Bld) 0.3 % 0-1 [facility] Work Phone: Chloride [Moles/Vol] 104 mmol/L 98-107 [facility] Work Phone: Eosinophils/100 WBC (Bld) 2.6 % 0-5 [facility] Work Phone: Glucose [Mass/Vol] 195 mg/dL 74-106 [facility] Work Phone: [phone] Comment on above: Fasting Glucose resu lt greater than or equal to 126 mg/dL suggests DIABETES MELLITUS per A.D.A. criteria. Neutrophils (Bld) [#/Vol] 6.3 10*3/uL 2.0-7.7 [facility] Work Phone: [phone] Neutrophils/100 WBC (Bld) 72.7 % 47-70 [facility] Work Phone: [phone] Potassium [Moles/Vol] 4.2 mmol/L 3.5-5.1 [facility] Work Phone: [phone] Sodium [Moles/Vol] 141 mmol/L 136-145 [facility] Work Phone: [phone] WBC (Bld) [#/Vol] 8.7 10*3/uL 4.4-11.0 [facility] Work Phone: [phone] Blood erythrocytes count (nu mber/volume)on 06-14-2022 RBC (Bld) [#/Vol] 3.50 10*6/uL 4.6-6.2 [facility] Work Phone: [phone] Blood hemoglobin measurement (mass/volume)on 06-14-2022 Hemoglobin (Bld) [Mass/Vol] 10.9 g/dL 13.0-16.5 [facility] Work Phone: [phone] Blood lymphocytes/100 leukoc yteson 06-14-2022 Lymphocytes/100 WBC (Bld) 17.4 % 19-41 [facility] Work Phone: [phone] Blood monocytes/100 leukocyt eson 06-14-2022 Monocytes/100 WBC (Bld) 6.4 % 0-10 [facility] Work Phone: Blood platelet mean volumeon 06-14-2022 Platelet mean volume (Bld) [Entitic vol] 10.3 fL 6.2-12.0 [facility] Work Phone: [phone] Determination of erythrocyte mean corpuscular volume (MCV)on 06-14-2022 MCV (RBC) [Entitic vol] 100.0 fL 80-94 [facility] Work Phone: [phone] Hematocrit Auto (Bld) [Volum e fraction]on 06-14-2022 Hematocrit (Bld) [Volume fraction] 35.0 % 40-54 [facility] Work Phone: [phone] Iron measurement (mass/mass) on 06-14-2022 Iron (Unsp spec) [Mass/Mass] 62 ug/dL 65-175 [facility] Work Phone: [phone] Laboratory - Chemistry and C hemistry - challengeon 06-14-2022 CO2 [Moles/Vol] 31.0 mmol/L 21.0-32.0 [facility] Work Phone: [phone] Urea nitrogen/Creatinine [Mass ratio] 22.4 mg/mg 10-20 [facility] Work Phone: [phone] Laboratory - Hematology and Cell countson 06-14-2022 Erythrocyte distribution width (RBC) [Entitic vol] 50.7 fL 35.1-43.9 [facility] Work Phone: [phone] Erythrocyte distribution width (RBC) [Ratio] 14.1 % 11.6-14.6 [facility] Work Phone: [phone] Immature granulocytes/100 WBC (Bld) 0.600 % 0.0-0.9 [facility] Work Phone: [phone] Comment on above: IG% - Immature Granu locytes (promyelocytes, myelocytes and metamyelocytes) > 1% indicates that a LEFT SHIFT is Present. MCH (RBC) [Entitic mass] 31.1 pg 27.0-32.0 [facility] Work Phone: [phone] Nucleated RBC/100 WBC (Bld) [Ratio] 0 % 0-5 [facility] Work Phone: [phone] MCHC Auto (RBC) [Mass/Vol]on 06-14-2022 MCHC (RBC) [Mass/Vol] 31.1 g/dL 32-36 [facility] Work [facility]: No Panel Informationon 06-14 Estimated Creatinine Clearance Calc 19.46 ml/min [facility] Work Phone: [phone] Estimated GFR (MDRD) Amer 31 mL/min >60 [facility] Work Phone: [phone] Comment on above: GFR Calc Estimated GFR (MDRD) Non-Af Amer 25 mL/min >60 [facility] Work Phone: [phone] Comment on above: Non- GFR Calc Parathyroid Hormone (Intact) 39.9 pg/mL 18.4-80.1 [facility] Work Phone: [phone] Total Iron Binding Capacity 252 ug/dL 250-450 [facility] Work Phone: [phone] Platelets bldon 06-14-2022 Platelets (Bld) [#/Vol] 139 10*3/uL 150-450 [facility] Work Phone: Serum or plasma albumin aubree urement (mass/volume)on 06-14-2022 Albumin [Mass/Vol] 3.0 g/dL 3.2-5.0 [facility] Work Phone: [phone] Serum or plasma calcium aubree urement (mass/volume)on 06-14-2022 Calcium [Mass/Vol] 9.2 mg/dL 8.5-10.1 [facility] Work Phone: Serum or plasma creatinine m easurement (mass/volume)on 06-14-2022 Creatinine [Mass/Vol] 2.59 mg/dL 0.70-1.30 [facility] Work Phone: Comment on above: The validity of the calculated GFR & GFRAA in patients over 70 years has not been determined. Clinical correlation is essential. Serum or plasma ferritin laurie surement (mass/volume)on 06-14-2022 Ferritin [Mass/Vol] 210 ng/mL 26-388 [facility] Work Phone: Serum or plasma iron saturat ion measurement (mass fraction)on 06-14-2022 Iron saturation [Mass fraction] 24.6 % 15.0-55.0 [facility] Work Phone: Serum or plasma urea nitroge n measurement (mass/volume)on 06-14-2022 Urea nitrogen [Mass/Vol] 58 mg/dL 7-18 [facility] Work Phone: Basophil percentageon 2021 Bilirubin [Mass/Vol] 0.80 mg/dL 0.20-1.00 [facility] Work Phone: Comment on above: For patients on eltr ombopag therapy, use of Dimension [place] TBIL is not recommended. Chloride [Moles/Vol] 103 mmol/L 98-107 [facility] Work Phone: [phone] Cholesterol [Mass/Vol] 104 mg/dL <200 [facility] Work Phone: [phone] Comment on above: <200 mg/dL Desirable 200-240 mg/dL Borderline >240 mg/dL High Risk Glucose [Mass/Vol] 115 mg/dL 74-106 [facility] Work Phone: Comment on above: Fasting Glucose resu lt from 100 to 125 mg/dL suggests IMPAIRED HOMEOSTASIS per A.D.A. criteria. Potassium [Moles/Vol] 4.2 mmol/L 3.5-5.1 [facility] Work Phone: [phone] Protein [Mass/Vol] 8.4 g/dL 6.4-8.2 [facility] Work Phone: Sodium [Moles/Vol] 140 mmol/L 136-145 [facility] Work Phone: [phone] Triglyceride [Mass/Vol] 86 mg/dL <199 [facility] Work Phone: [phone] Comment on above: The drugs N-Acetylcy steine and Metamizole may falsely depress this assay.Serum Triglycerides Reference Interval Normal <150 mg/dL Borderline high 150 - 199 mg/dL High 200 - 499 mg/dL Very High > or = 500 mg/dL WBC (Bld) [#/Vol] 12.5 10*3/uL 4.4-11.0 [facility] Work Phone: [phone] Blood erythrocytes count (nu mber/volume)on 05-18-2022 RBC (Bld) [#/Vol] 3.47 10*6/uL 4.6-6.2 [facility]: Blood hemoglobin measurement (mass/volume)on 05-18-2022 Hemoglobin (Bld) [Mass/Vol] 11.0 g/dL 13.0-16.5 [facility] Work Phone: [phone] Blood platelet mean volumeon 05-18-2022 Platelet mean volume (Bld) [Entitic vol] 10.7 fL 6.2-12.0 [facility] Work Phone: Determination of erythrocyte mean corpuscular volume (MCV)on 05-18-2022 MCV (RBC) [Entitic vol] 99.7 fL 80-94 [facility] Work Phone: [phone] Hematocrit Auto (Bld) [Volum e fraction]on 05-18-2022 Hematocrit (Bld) [Volume fraction] 34.6 % 40-54 [facility] Work Phone: Laboratory - Chemistry and C hemistry - challengeon 05-18-2022 ALP [Catalytic activity/Vol] 140 U/L 45-117 [facility] Work Phone: ALT [Catalytic activity/Vol] 23 U/L 16-61 [facility] Work Phone: [phone] CO2 [Moles/Vol] 29.0 mmol/L 21.0-32.0 [facility] Work Phone: Globulin (S) [Mass/Vol] 5.5 g/dL 2.2-4.2 [facility] Work Phone: Urea nitrogen/Creatinine [Mass ratio] 23.7 mg/mg 10-20 [facility] Work Phone: [phone] Laboratory - Hematology and Cell countson 05-18-2022 Erythrocyte distribution width (RBC) [Entitic vol] 51.8 fL 35.1-43.9 [facility] Work Phone: [phone] Erythrocyte distribution width (RBC) [Ratio] 14.3 % 11.6-14.6 [facility] Work Phone: MCH (RBC) [Entitic mass] 31.7 pg 27.0-32.0 [facility] Work Phone: [phone] MCHC Auto (RBC) [Mass/Vol]on 05-18-2022 MCHC (RBC) [Mass/Vol] 31.8 g/dL 32-36 [facility] Work Phone: No Panel Informationon 05-18 Estimated GFR (MDRD) Amer 29 mL/min >60 [facility] Work Phone: Comment on above: GFR Calc Estimated GFR (MDRD) Non-Af Amer 24 mL/min >60 [facility] Work Phone: [phone] Comment on above: Non- GFR Calc Thyroid Stimulating Hormone (TSH) 5.11 uIU/mL 0.358-3.74 [facility] Work Phone: Platelets bldon 05-18-2022 Platelets (Bld) [#/Vol] 169 10*3/uL 150-450 [facility] Work Phone: [phone] Serum or plasma albumin aubree urement (mass/volume)on 05-18-2022 Albumin [Mass/Vol] 2.9 g/dL 3.2-5.0 [facility] Work Phone: [phone] Serum or plasma albumin/glob ulin mass ratioon 05-18-2022 Albumin/Globulin [Mass ratio] 0.5 {ratio} 0.9-2.4 [facility] Work Phone: [phone] Serum or plasma calcium aubree urement (mass/volume)on 05-18-2022 Calcium [Mass/Vol] 9.5 mg/dL 8.5-10.1 [facility] Work Phone: [phone] Serum or plasma cholesterol in HDL measurement (mass/volume)on 05-18-2022 Cholesterol in HDL [Mass/Vol] 37 mg/dL >40 [facility] Work Phone: [phone] Comment on above: The drugs N-Acetylcy steine and Metamizole may falsely depress this assay. Reference Range HDL <40 mg/dL Low HDL Cholesterol HDL >or= 60 mg/dL High HDL Cholesterol Serum or plasma cholesterol in VLDL measurement (mass/volume)on 05-18-2022 Cholesterol in VLDL [Mass/Vol] 17 mg/dL 5-40 [facility] Work Phone: Serum or plasma creatinine m easurement (mass/volume)on 05-18-2022 Creatinine [Mass/Vol] 2.74 mg/dL 0.70-1.30 [facility] Work Phone: Comment on above: The validity of the calculated GFR & GFRAA in patients over 70 years has not been determined. Clinical correlation is essential. Serum or plasma low density lipoprotein (LDL) cholesterol measurement (mass/volume)on 05-18-2022 Cholesterol in LDL [Mass/Vol] 50 mg/dL 0-130 [facility] Work Phone: Serum or plasma urea nitroge n measurement (mass/volume)on 05-18-2022 Urea nitrogen [Mass/Vol] 65 mg/dL 7-18 [facility] Work Phone: Thin prep Papanicolaou smear with manual screeningon 05-18-2022 Thin prep Papanicolaou smear with manual screening 18 U/L 15-37 [facility] Work Phone: Thin prep Papanicolaou smear with manual screening 8 5-15 [facility] Work Phone: Whole blood hemoglobin A1c/t otal hemoglobin ratio (mass fraction)on 05-18-2022 HbA1c (Bld) [Mass fraction] 6.3 % 3.8-5.6 [facility] Work Phone: Comment on above: Normal < 5.7 % Predi abetic 5.7 - 6.4 % Diabetic >or= 6.5 % Please note range changes. Absolute lymphocyte counton 05-17-2022 Lymphocytes Auto (Unsp spec) [#/Vol] 1.53 10*3/uL 0.83-4.51 [facility] Work Phone: Basophil percentageon 2021 Basophil percentage 3.5 mg/dL 2.5-4.9 [facility] Work Phone: Basophils/100 WBC (Bld) 0.3 % 0-1 [facility] Work Phone: Chloride [Moles/Vol] 104 mmol/L 98-107 [facility] Work Phone: Eosinophils/100 WBC (Bld) 1.8 % 0-5 [facility] Work Phone: Glucose [Mass/Vol] 302 mg/dL 74-106 [facility] Work Phone: Comment on above: Glucose result great er than or equal to 200 mg/dLsuggests DIABETES MELLITUS per A.D.A. criteria. Neutrophils (Bld) [#/Vol] 12.1 10*3/uL 2.0-7.7 [facility] Work Phone: Neutrophils/100 WBC (Bld) 81.8 % 47-70 [facility] Work Phone: Potassium [Moles/Vol] 4.4 mmol/L 3.5-5.1 [facility] Work Phone: Sodium [Moles/Vol] 138 mmol/L 136-145 [facility] Work Phone: WBC (Bld) [#/Vol] 14.8 10*3/uL 4.4-11.0 [facility] Work Phone: Blood erythrocytes count (nu mber/volume)on 05-17-2022 RBC (Bld) [#/Vol] 3.49 10*6/uL 4.6-6.2 [facility] Work Phone: Blood hemoglobin measurement (mass/volume)on 05-17-2022 Hemoglobin (Bld) [Mass/Vol] 11.1 g/dL 13.0-16.5 [facility] Work Phone: Blood lymphocytes/100 leukoc yteson 05-17-2022 Lymphocytes/100 WBC (Bld) 10.3 % 19-41 [facility] Work Phone: Blood monocytes/100 leukocyt eson 05-17-2022 Monocytes/100 WBC (Bld) 5.1 % 0-10 [facility] Work Phone: [phone] Blood platelet mean volumeon 05-17-2022 Platelet mean volume (Bld) [Entitic vol] 10.1 fL 6.2-12.0 [facility] Work Phone: [phone] Determination of erythrocyte mean corpuscular volume (MCV)on 05-17-2022 MCV (RBC) [Entitic vol] 99.7 fL 80-94 [facility] Work Phone: [phone] Hematocrit Auto (Bld) [Volum e fraction]on 05-17-2022 Hematocrit (Bld) [Volume fraction] 34.8 % 40-54 [facility] Work Phone: [phone] Iron measurement (mass/mass) on 05-17-2022 Iron (Unsp spec) [Mass/Mass] 49 ug/dL 65-175 [facility] Work Phone: [phone] Laboratory - Chemistry and C hemistry - challengeon 05-17-2022 CO2 [Moles/Vol] 30.0 mmol/L 21.0-32.0 [facility] Work Phone: [phone] Urea nitrogen/Creatinine [Mass ratio] 23.1 mg/mg 09-16 [facility] Work Phone: [phone] Laboratory - Hematology and Cell countson 05-17-2022 Erythrocyte distribution width (RBC) [Entitic vol] 51.1 fL 35.1-43.9 [facility] Work Phone: [phone] Erythrocyte distribution width (RBC) [Ratio] 14.2 % 11.6-14.6 [facility] Work Phone: [phone] Immature granulocytes/100 WBC (Bld) 0.700 % 0.0-0.9 [facility] Work Phone: [phone] Comment on above: IG% - Immature Granu locytes (promyelocytes, myelocytes and metamyelocytes) > 1% indicates that a LEFT SHIFT is Present. MCH (RBC) [Entitic mass] 31.8 pg 27.0-32.0 [facility] Work Phone: Nucleated RBC/100 WBC (Bld) [Ratio] 0 % 0-5 [facility] Work Phone: [phone] MCHC Auto (RBC) [Mass/Vol]on 05-17-2022 MCHC (RBC) [Mass/Vol] 31.9 g/dL 32-36 [facility] Work Phone: No Panel Informationon 05-17 Estimated GFR (MDRD) Amer 29 mL/min >60 [facility] Work Phone: Comment on above: GFR Calc Estimated GFR (MDRD) Non-Af Amer 24 mL/min >60 [facility] Work Phone: Comment on above: Non- GFR Calc Total Iron Binding Capacity 232 ug/dL 250-450 [facility] Work Phone: Platelets bldon 05-17-2022 Platelets (Bld) [#/Vol] 156 10*3/uL 150-450 [facility] Work Phone: Serum or plasma albumin aubree urement (mass/volume)on 05-17-2022 Albumin [Mass/Vol] 3.0 g/dL 3.2-5.0 [facility] Work Phone: [phone] Serum or plasma calcium aubree urement (mass/volume)on 05-17-2022 Calcium [Mass/Vol] 9.8 mg/dL 8.5-10.1 [facility] Work Phone: [phone] Serum or plasma creatinine m easurement (mass/volume)on 05-17-2022 Creatinine [Mass/Vol] 2.77 mg/dL 0.70-1.30 [facility] Work Phone: Comment on above: The validity of the calculated GFR & GFRAA in patients over 70 years has not been determined. Clinical correlation is essential. Serum or plasma ferritin laurie surement (mass/volume)on 05-17-2022 Ferritin [Mass/Vol] 307 ng/mL 26-388 [facility] Work Phone: Serum or plasma iron saturat ion measurement (mass fraction)on 05-17-2022 Iron saturation [Mass fraction] 21.1 % 15.0-55.0 [facility] Work Phone: Serum or plasma urea nitroge n measurement (mass/volume)on 05-17-2022 Urea nitrogen [Mass/Vol] 64 mg/dL 7-18 [facility] Work Phone: Absolute lymphocyte counton 04-12-2022 Lymphocytes Auto (Unsp spec) [#/Vol] 1.61 10*3/uL 0.83-4.51 [facility] Work Phone: Basophil percentageon 2021 Basophil percentage 3.2 mg/dL 2.5-4.9 [facility] Work Phone: Basophils/100 WBC (Bld) 0.3 % 0-1 [facility] Work Phone: Chloride [Moles/Vol] 100 mmol/L 98-107 [facility] Work Phone: Eosinophils/100 WBC (Bld) 1.8 % 0-5 [facility] Work Phone: Glucose [Mass/Vol] 166 mg/dL 74-106 [facility] Work Phone: Comment on above: Fasting Glucose resu lt greater than or equal to 126 mg/dL suggests DIABETES MELLITUS per A.D.A. criteria. Neutrophils (Bld) [#/Vol] 8.3 10*3/uL 2.0-7.7 [facility] Work Phone: Neutrophils/100 WBC (Bld) 75.8 % 47-70 [facility] Work Phone: Potassium [Moles/Vol] 4.5 mmol/L 3.5-5.1 [facility] Work [facility]: Sodium [Moles/Vol] 137 mmol/L 136-145 [facility] Work Phone: WBC (Bld) [#/Vol] 11.0 10*3/uL 4.4-11.0 [facility] Work Phone: Blood erythrocytes count (nu mber/volume)on 04-12-2022 RBC (Bld) [#/Vol] 3.44 10*6/uL 4.6-6.2 [facility] Work Phone: Blood hemoglobin measurement (mass/volume)on 04-12-2022 Hemoglobin (Bld) [Mass/Vol] 11.1 g/dL 13.0-16.5 [facility] Work Phone: [phone] Blood lymphocytes/100 leukoc yteson 04-12-2022 Lymphocytes/100 WBC (Bld) 14.7 % 19-41 [facility] Work Phone: [phone] Blood monocytes/100 leukocyt eson 04-12-2022 Monocytes/100 WBC (Bld) 6.9 % 0-10 [facility] Work Phone: Blood platelet mean volumeon 04-12-2022 Platelet mean volume (Bld) [Entitic vol] 9.4 fL 6.2-12.0 [facility] Work Phone: Determination of erythrocyte mean corpuscular volume (MCV)on 04-12-2022 MCV (RBC) [Entitic vol] 98.8 fL 80-94 [facility] Work Phone: [phone] Hematocrit Auto (Bld) [Volum e fraction]on 04-12-2022 Hematocrit (Bld) [Volume fraction] 34.0 % 40-54 [facility] Work Phone: Iron measurement (mass/mass) on 04-12-2022 Iron (Unsp spec) [Mass/Mass] 65 ug/dL 65-175 [facility] Work Phone: [phone] Laboratory - Chemistry and C hemistry - challengeon 04-12-2022 CO2 [Moles/Vol] 31.0 mmol/L 21.0-32.0 [facility] Work Phone: Urea nitrogen/Creatinine [Mass ratio] 24.7 mg/mg 10-20 [facility] Work Phone: [phone] Laboratory - Hematology and Cell countson 04-12-2022 Erythrocyte distribution width (RBC) [Entitic vol] 51.0 fL 35.1-43.9 [facility] Work Phone: [phone] Erythrocyte distribution width (RBC) [Ratio] 14.2 % 11.6-14.6 [facility] Work Phone: [phone] Immature granulocytes/100 WBC (Bld) 0.500 % 0.0-0.9 [facility] Work Phone: [phone] Comment on above: IG% - Immature Granu locytes (promyelocytes, myelocytes and metamyelocytes) > 1% indicates that a LEFT SHIFT is Present. MCH (RBC) [Entitic mass] 32.3 pg 27.0-32.0 [facility] Work Phone: [phone] Nucleated RBC/100 WBC (Bld) [Ratio] 0 % 0-5 [facility] Work Phone: [phone] MCHC Auto (RBC) [Mass/Vol]on 04-12-2022 MCHC (RBC) [Mass/Vol] 32.6 g/dL 32-36 [facility] Work Phone: [phone] Panel Informationon 04-12 Estimated GFR (MDRD) Amer 32 mL/min >60 [facility] Work Phone: [phone] Comment on above: GFR Calc Estimated GFR (MDRD) Non-Af Amer 26 mL/min >60 [facility] Work Phone: [phone] Comment on above: Non- GFR Calc Total Iron Binding Capacity 228 ug/dL 250-450 [facility] Work Phone: [phone] Platelets bldon 04-12-2022 Platelets (Bld) [#/Vol] 140 10*3/uL 150-450 [facility] Work Phone: [phone] Serum or plasma albumin aubree urement (mass/volume)on 04-12-2022 Albumin [Mass/Vol] 3.0 g/dL 3.2-5.0 [facility] Work Phone: [phone] Serum or plasma calcium aubree urement (mass/volume)on 04-12-2022 Calcium [Mass/Vol] 9.0 mg/dL 8.5-10.1 [facility] Work Phone: Serum or plasma creatinine m easurement (mass/volume)on 04-12-2022 Creatinine [Mass/Vol] 2.51 mg/dL 0.70-1.30 [facility] Work Phone: Comment on above: The validity of the calculated GFR & GFRAA in patients over 70 years has not been determined. Clinical correlation is essential. Serum or plasma ferritin alurie surement (mass/volume)on 04-12-2022 Ferritin [Mass/Vol] 250 ng/mL 26-388 [facility] Work Phone: Serum or plasma iron saturat ion measurement (mass fraction)on 04-12-2022 Iron saturation [Mass fraction] 28.5 % 15.0-55.0 [facility] Work Phone: Serum or plasma urea nitroge n measurement (mass/volume)on 04-12-2022 Urea nitrogen [Mass/Vol] 62 mg/dL 7-18 [facility] Work Phone: Absolute lymphocyte counton 03-29-2022 Lymphocytes Auto (Unsp spec) [#/Vol] 1.98 10*3/uL 0.83-4.51 [facility] Work Phone: Basophil percentageon 2021 Basophil percentage 2.5 mg/dL 2.5-4.9 [facility] Work Phone: Basophils/100 WBC (Bld) 0.6 % 0-1 [facility] Work Phone: Chloride [Moles/Vol] 109 mmol/L 98-107 [facility] Work Phone: Eosinophils/100 WBC (Bld) 2.8 % 0-5 [facility] Work Phone: Glucose [Mass/Vol] 121 mg/dL 74-106 [facility] Work Phone: Comment on above: Fasting Glucose resu lt from 100 to 125 mg/dL suggests IMPAIRED HOMEOSTASIS per A.D.A. criteria. Neutrophils (Bld) [#/Vol] 6.7 10*3/uL 2.0-7.7 [facility] Work Phone: Neutrophils/100 WBC (Bld) 68.7 % 47-70 [facility] Work Phone: Potassium [Moles/Vol] 4.4 mmol/L 3.5-5.1 [facility] Work Phone: [phone] Sodium [Moles/Vol] 140 mmol/L 136-145 [facility] Work Phone: WBC (Bld) [#/Vol] 9.8 10*3/uL 4.4-11.0 [facility] Work Phone: Blood erythrocytes count (nu mber/volume)on 03-29-2022 RBC (Bld) [#/Vol] 3.33 10*6/uL 4.6-6.2 [facility]: Blood hemoglobin measurement (mass/volume)on 03-29-2022 Hemoglobin (Bld) [Mass/Vol] 10.5 g/dL 13.0-16.5 [facility] Work Phone: Blood lymphocytes/100 leukoc yteson 03-29-2022 Lymphocytes/100 WBC (Bld) 20.2 % 19-41 [facility] Work Phone: Blood monocytes/100 leukocyt eson 03-29-2022 Monocytes/100 WBC (Bld) 6.7 % 0-10 [facility] Work Phone: Blood platelet mean volumeon 03-29-2022 Platelet mean volume (Bld) [Entitic vol] 10.8 fL 6.2-12.0 [facility] Work Phone: Determination of erythrocyte mean corpuscular volume (MCV)on 03-29-2022 MCV (RBC) [Entitic vol] 100.3 fL 80-94 [facility] Work Phone: Hematocrit Auto (Bld) [Volum e fraction]on 03-29-2022 Hematocrit (Bld) [Volume fraction] 33.4 % 40-54 [facility] Work Phone: [phone] Iron measurement (mass/mass) on 03-29-2022 Iron (Unsp spec) [Mass/Mass] 71 ug/dL 65-175 [facility] Work Phone: [phone] Laboratory - Chemistry and C hemistry - challengeon 03-29-2022 CO2 [Moles/Vol] 25.0 mmol/L 21.0-32.0 [facility] Work Phone: [phone] Urea nitrogen/Creatinine [Mass ratio] 27.5 mg/mg 10-20 [facility] Work Phone: [phone] Laboratory - Hematology and Cell countson 03-29-2022 Erythrocyte distribution width (RBC) [Entitic vol] 55.0 fL 35.1-43.9 [facility] Work Phone: [phone] Erythrocyte distribution width (RBC) [Ratio] 15.1 % 11.6-14.6 [facility] Work Phone: [phone] Immature granulocytes/100 WBC (Bld) 1.000 % 0.0-0.9 [facility] Work Phone: [phone] Comment on above: IG% - Immature Granu locytes (promyelocytes, myelocytes and metamyelocytes) > 1% indicates that a LEFT SHIFT is Present. MCH (RBC) [Entitic mass] 31.5 pg 27.0-32.0 [facility] Work Phone: [phone] Nucleated RBC/100 WBC (Bld) [Ratio] 0 % 0-5 [facility] Work Phone: [phone] MCHC Auto (RBC) [Mass/Vol]on 03-29-2022 MCHC (RBC) [Mass/Vol] 31.4 g/dL 32-36 [facility] Work Phone: [phone] Panel Informationon 03-29 Estimated GFR (MDRD) Amer 37 mL/min >60 [facility] Work Phone: [phone] Comment on above: GFR Calc Estimated GFR (MDRD) Non-Af Amer 30 mL/min >60 [facility] Work Phone: Comment on above: Non- GFR Calc Parathyroid Hormone (Intact) 143.9 pg/mL 18.4-80.1 [facility] Work Phone: Total Iron Binding Capacity 242 ug/dL 250-450 [facility] Work Phone: Platelets bldon 03-29-2022 Platelets (Bld) [#/Vol] 164 10*3/uL 150-450 [facility] Work Phone: Serum or plasma albumin aubree urement (mass/volume)on 03-29-2022 Albumin [Mass/Vol] 3.0 g/dL 3.2-5.0 [facility] Work Phone: Serum or plasma calcium aubree urement (mass/volume)on 03-29-2022 Calcium [Mass/Vol] 8.1 mg/dL 8.5-10.1 [facility] Work Phone: Serum or plasma creatinine m easurement (mass/volume)on 03-29-2022 Creatinine [Mass/Vol] 2.22 mg/dL 0.70-1.30 [facility] Work Phone: Comment on above: The validity of the calculated GFR & GFRAA in patients over 70 years has not been determined. Clinical correlation is essential. Serum or plasma ferritin laurie surement (mass/volume)on 03-29-2022 Ferritin [Mass/Vol] 209 ng/mL 26-388 [facility] Work Phone: [phone] Serum or plasma iron saturat ion measurement (mass fraction)on 03-29-2022 Iron saturation [Mass fraction] 29.3 % 15.0-55.0 [facility] Work Phone: Serum or plasma urea nitroge n measurement (mass/volume)on 03-29-2022 Urea nitrogen [Mass/Vol] 61 mg/dL 7-18 [facility] Work Phone: Serum or plasma uric acid me asurement (mass/volume)on 03-29-2022 Urate [Mass/Vol] 5.8 mg/dL 3.5-7.2 [facility] Work Phone: Comment on above: The drugs N-Acetylcy steine and Metamizole may falsely depress this assay. Urine creatinine measurement (mass/volume)on 03-29-2022 Creatinine (U) [Mass/Vol] 90.50 mg/dL NO RANGE EST. [facility] Work Phone: Urine protein measurement (m ass/volume)on 03-29-2022 Protein (U) [Mass/Vol] 81.6 mg/dL 0.0-11.8 [facility] Work Phone: Urine protein/creatinine mas s ratioon 03-29-2022 Protein/Creatinine (U) [Mass ratio] 902 mg/g CRE 0-200 [facility] Work Phone: Absolute lymphocyte counton 03-15-2022 Lymphocytes Auto (Unsp spec) [#/Vol] 1.54 10*3/uL 0.83-4.51 [facility] Work Phone: Basophil percentageon 2021 Basophil percentage 3.0 mg/dL 2.5-4.9 [facility]: Basophils/100 WBC (Bld) 0.3 % 0-1 [facility] Work Phone: Chloride [Moles/Vol] 108 mmol/L 98-107 [facility] Work Phone: Eosinophils/100 WBC (Bld) 1.4 % 0-5 [facility] Work Phone: Glucose [Mass/Vol] 233 mg/dL 74-106 [facility] Work Phone: Comment on above: Glucose result great er than or equal to 200 mg/dLsuggests DIABETES MELLITUS per A.D.A. criteria. Neutrophils (Bld) [#/Vol] 7.0 10*3/uL 2.0-7.7 [facility] Work Phone: Neutrophils/100 WBC (Bld) 74.8 % 47-70 [facility] Work Phone: [phone] Potassium [Moles/Vol] 4.5 mmol/L 3.5-5.1 [facility] Work Phone: [phone] Sodium [Moles/Vol] 139 mmol/L 136-145 [facility] Work Phone: [phone] WBC (Bld) [#/Vol] 9.3 10*3/uL 4.4-11.0 [facility] Work Phone: [phone] Blood erythrocytes count (nu mber/volume)on 03-15-2022 RBC (Bld) [#/Vol] 3.12 10*6/uL 4.6-6.2 [facility] Work Phone: Blood hemoglobin measurement (mass/volume)on 03-15-2022 Hemoglobin (Bld) [Mass/Vol] 9.9 g/dL 13.0-16.5 [facility] Work Phone: [phone] Blood lymphocytes/100 leukoc yteson 03-15-2022 Lymphocytes/100 WBC (Bld) 16.5 % 19-41 [facility] Work Phone: [phone] Blood monocytes/100 leukocyt eson 03-15-2022 Monocytes/100 WBC (Bld) 5.6 % 0-10 [facility] Work Phone: Blood platelet mean volumeon 03-15-2022 Platelet mean volume (Bld) [Entitic vol] 9.9 fL 6.2-12.0 [facility] Work Phone: [phone] Determination of erythrocyte mean corpuscular volume (MCV)on 03-15-2022 MCV (RBC) [Entitic vol] 100.6 fL 80-94 [facility] Work Phone: Hematocrit Auto (Bld) [Volum e fraction]on 03-15-2022 Hematocrit (Bld) [Volume fraction] 31.4 % 40-54 [facility] Work Phone: Iron measurement (mass/mass) on 03-15-2022 Iron (Unsp spec) [Mass/Mass] 69 ug/dL 65-175 [facility] Work Phone: [phone] Laboratory - Chemistry and C hemistry - challengeon 03-15-2022 CO2 [Moles/Vol] 25.0 mmol/L 21.0-32.0 [facility] Work Phone: [phone] Urea nitrogen/Creatinine [Mass ratio] 31.6 mg/mg 10-20 [facility] Work Phone: [phone] Laboratory - Hematology and Cell countson 03-15-2022 Erythrocyte distribution width (RBC) [Entitic vol] 56.5 fL 35.1-43.9 [facility] Work Phone: [phone] Erythrocyte distribution width (RBC) [Ratio] 15.5 % 11.6-14.6 [facility] Work Phone: [phone] Immature granulocytes/100 WBC (Bld) 1.400 % 0.0-0.9 [facility] Work Phone: [phone] Comment on above: IG% - Immature Granu locytes (promyelocytes, myelocytes and metamyelocytes) > 1% indicates that a LEFT SHIFT is Present. MCH (RBC) [Entitic mass] 31.7 pg 27.0-32.0 [facility] Work Phone: [phone] Nucleated RBC/100 WBC (Bld) [Ratio] 0 % 0-5 [facility] Work Phone: [phone] MCHC Auto (RBC) [Mass/Vol]on 03-15-2022 MCHC (RBC) [Mass/Vol] 31.5 g/dL 32-36 [facility] Work Phone: [phone] Panel Informationon 03-15 Estimated Creatinine Clearance Calc 17.61 ml/min [facility] Work Phone: [phone] Estimated GFR (MDRD) Amer 27 mL/min >60 [facility] Work Phone: [phone] Comment on above: GFR Calc Estimated GFR (MDRD) Non-Af Amer 22 mL/min >60 [facility] Work Phone: [phone] Comment on above: Non- GFR Calc Parathyroid Hormone (Intact) 89.0 pg/mL 18.4-80.1 [facility] Work Phone: Total Iron Binding Capacity 254 ug/dL 250-450 [facility] Work Phone: Platelets bldon 03-15-2022 Platelets (Bld) [#/Vol] 134 10*3/uL 150-450 [facility] Work Phone: Serum or plasma albumin aubree urement (mass/volume)on 03-15-2022 Albumin [Mass/Vol] 3.1 g/dL 3.2-5.0 [facility] Work Phone: Serum or plasma calcium aubree urement (mass/volume)on 03-15-2022 Calcium [Mass/Vol] 8.9 mg/dL 8.5-10.1 [facility] Work Phone: Serum or plasma creatinine m easurement (mass/volume)on 03-15-2022 Creatinine [Mass/Vol] 2.91 mg/dL 0.70-1.30 [facility] Work Phone: Comment on above: The validity of the calculated GFR & GFRAA in patients over 70 years has not been determined. Clinical correlation is essential. Serum or plasma ferritin laurie surement (mass/volume)on 03-15-2022 Ferritin [Mass/Vol] 237 ng/mL 26-388 [facility] Work Phone: Serum or plasma iron saturat ion measurement (mass fraction)on 03-15-2022 Iron saturation [Mass fraction] 27.2 % 15.0-55.0 [facility] Work Phone: Serum or plasma urea nitroge n measurement (mass/volume)on 03-15-2022 Urea nitrogen [Mass/Vol] 92 mg/dL 7-18 [facility] Work Phone: Absolute lymphocyte counton 02-15-2022 Lymphocytes Auto (Unsp spec) [#/Vol] 1.47 10*3/uL 0.83-4.51 [facility] Work Phone: Basophil percentageon 2021 Basophil percentage 3.3 mg/dL 2.5-4.9 [facility] Work Phone: Basophils/100 WBC (Bld) 0.2 % 0-1 [facility] Work Phone: Chloride [Moles/Vol] 110 mmol/L 98-107 [facility] Work Phone: Eosinophils/100 WBC (Bld) 1.4 % 0-5 [facility] Work Phone: Glucose [Mass/Vol] 139 mg/dL 74-106 [facility] Work Phone: Comment on above: Fasting Glucose resu lt greater than or equal to 126 mg/dL suggests DIABETES MELLITUS per A.D.A. criteria. Neutrophils (Bld) [#/Vol] 7.7 10*3/uL 2.0-7.7 [facility] Work Phone: Neutrophils/100 WBC (Bld) 76.8 % 47-70 [facility] Work Phone: Potassium [Moles/Vol] 4.7 mmol/L 3.5-5.1 [facility] Work Phone: Sodium [Moles/Vol] 141 mmol/L 136-145 [facility] Work Phone: WBC (Bld) [#/Vol] 10.0 10*3/uL 4.4-11.0 [facility] Work Phone: Blood erythrocytes count (nu mber/volume)on 02-15-2022 RBC (Bld) [#/Vol] 3.28 10*6/uL 4.6-6.2 [facility] Work Phone: Blood hemoglobin measurement (mass/volume)on 02-15-2022 Hemoglobin (Bld) [Mass/Vol] 10.6 g/dL 13.0-16.5 [facility] Work Phone: Blood lymphocytes/100 leukoc yteson 02-15-2022 Lymphocytes/100 WBC (Bld) 14.8 % 19-41 [facility] Work Phone: Blood monocytes/100 leukocyt eson 02-15-2022 Monocytes/100 WBC (Bld) 6.4 % 0-10 [facility] Work Phone: [phone] Blood platelet mean volumeon 02-15-2022 Platelet mean volume (Bld) [Entitic vol] 10.0 fL 6.2-12.0 [facility] Work Phone: [phone] Determination of erythrocyte mean corpuscular volume (MCV)on 02-15-2022 MCV (RBC) [Entitic vol] 98.8 fL 80-94 [facility] Work Phone: [phone] Hematocrit Auto (Bld) [Volum e fraction]on 02-15-2022 Hematocrit (Bld) [Volume fraction] 32.4 % 40-54 [facility] Work Phone: [phone] Iron measurement (mass/mass) on 02-15-2022 Iron (Unsp spec) [Mass/Mass] 78 ug/dL 65-175 [facility] Work Phone: [phone] Laboratory - Chemistry and C hemistry - challengeon 02-15-2022 CO2 [Moles/Vol] 27.0 mmol/L 21.0-32.0 [facility] Work Phone: [phone] Urea nitrogen/Creatinine [Mass ratio] 34.2 mg/mg 10-20 [facility] Work Phone: [phone] Laboratory - Hematology and Cell countson 02-15-2022 Erythrocyte distribution width (RBC) [Entitic vol] 53.1 fL 35.1-43.9 [facility] Work Phone: [phone] Erythrocyte distribution width (RBC) [Ratio] 14.8 % 11.6-14.6 [facility] Work Phone: [phone] Immature granulocytes/100 WBC (Bld) 0.400 % 0.0-0.9 [facility] Work Phone: [phone] Comment on above: IG% - Immature Granu locytes (promyelocytes, myelocytes and metamyelocytes) > 1% indicates that a LEFT SHIFT is Present. MCH (RBC) [Entitic mass] 32.3 pg 27.0-32.0 [facility] Work Phone: Nucleated RBC/100 WBC (Bld) [Ratio] 0 % 0-5 [facility] Work Phone: MCHC Auto (RBC) [Mass/Vol]on 02-15-2022 MCHC (RBC) [Mass/Vol] 32.7 g/dL 32-36 [facility] Work Phone: No Panel Informationon 02-15 Estimated GFR (MDRD) Amer 37 mL/min >60 [facility] Work Phone: Comment on above: GFR Calc Estimated GFR (MDRD) Non-Af Amer 31 mL/min >60 [facility] Work Phone: Comment on above: Non- GFR Calc Total Iron Binding Capacity 250 ug/dL 250-450 [facility] Work Phone: Platelets bldon 02-15-2022 Platelets (Bld) [#/Vol] 127 10*3/uL 150-450 [facility] Work Phone: Serum or plasma albumin aubree urement (mass/volume)on 02-15-2022 Albumin [Mass/Vol] 3.2 g/dL 3.2-5.0 [facility] Work Phone: Serum or plasma calcium aubree urement (mass/volume)on 02-15-2022 Calcium [Mass/Vol] 9.3 mg/dL 8.5-10.1 [facility] Work Phone: Serum or plasma creatinine m easurement (mass/volume)on 02-15-2022 Creatinine [Mass/Vol] 2.19 mg/dL 0.70-1.30 [facility] Work Phone: Comment on above: The validity of the calculated GFR & GFRAA in patients over 70 years has not been determined. Clinical correlation is essential. Serum or plasma ferritin laurie surement (mass/volume)on 02-15-2022 Ferritin [Mass/Vol] 257 ng/mL 26-388 [facility] Work Phone: Serum or plasma iron saturat ion measurement (mass fraction)on 02-15-2022 Iron saturation [Mass fraction] 31.2 % 15.0-55.0 [facility] Work Phone: [phone] Serum or plasma urea nitroge n measurement (mass/volume)on 02-15-2022 Urea nitrogen [Mass/Vol] 75 mg/dL 7-18 [facility] Work Phone: Basophil percentageon 2021 Chloride [Moles/Vol] 105 mmol/L 98-107 [facility] Work Phone: [phone] Glucose [Mass/Vol] 120 mg/dL 74-106 [facility] Work Phone: [phone] Comment on above: Fasting Glucose resu lt from 100 to 125 mg/dL suggests IMPAIRED HOMEOSTASIS per A.D.A. criteria. Potassium [Moles/Vol] 4.8 mmol/L 3.5-5.1 [facility] Work Phone: [phone] Sodium [Moles/Vol] 138 mmol/L 136-145 [facility] Work Phone: [phone] WBC (Bld) [#/Vol] 10.6 10*3/uL 4.4-11.0 [facility] Work Phone: Blood erythrocytes count (nu mber/volume)on 01-25-2022 RBC (Bld) [#/Vol] 4.06 10*6/uL 4.6-6.2 [facility] Work Phone: [phone] Blood hemoglobin measurement (mass/volume)on 01-25-2022 Hemoglobin (Bld) [Mass/Vol] 12.7 g/dL 13.0-16.5 [facility] Work Phone: [phone] Blood platelet mean volumeon 01-25-2022 Platelet mean volume (Bld) [Entitic vol] 10.6 fL 6.2-12.0 [facility] Work Phone: [phone] Determination of erythrocyte mean corpuscular volume (MCV)on 01-25-2022 MCV (RBC) [Entitic vol] 97.5 fL 80-94 [facility] Work Phone: [phone] Hematocrit Auto (Bld) [Volum e fraction]on 01-25-2022 Hematocrit (Bld) [Volume fraction] 39.6 % 40-54 [facility] Work Phone: [phone] Laboratory - Chemistry and C hemistry - challengeon 01-25-2022 CO2 [Moles/Vol] 31.0 mmol/L 21.0-32.0 [facility] Work Phone: [phone] Urea nitrogen/Creatinine [Mass ratio] 34.9 mg/mg 10-20 [facility] Work Phone: [phone] Laboratory - Hematology and Cell countson 01-25-2022 Erythrocyte distribution width (RBC) [Entitic vol] 52.1 fL 35.1-43.9 [facility] Work Phone: [phone] Erythrocyte distribution width (RBC) [Ratio] 14.5 % 11.6-14.6 [facility] Work Phone: [phone] MCH (RBC) [Entitic mass] 31.3 pg 27.0-32.0 [facility] Work Phone: [phone] MCHC Auto (RBC) [Mass/Vol]on 01-25-2022 MCHC (RBC) [Mass/Vol] 32.1 g/dL 32-36 [facility] Work Phone: No Panel Informationon 01-25 Estimated GFR (MDRD) Amer 38 mL/min >60 [facility] Work Phone: [phone] Comment on above: GFR Calc Estimated GFR (MDRD) Non-Af Amer 31 mL/min >60 [facility] Work Phone: Comment on above: Non- GFR Calc Platelets bldon 01-25-2022 Platelets (Bld) [#/Vol] 151 10*3/uL 150-450 [facility] Work Phone: [phone] Serum or plasma calcium aubree urement (mass/volume)on 01-25-2022 Calcium [Mass/Vol] 8.8 mg/dL 8.5-10.1 [facility] Work Phone: Serum or plasma creatinine m easurement (mass/volume)on 01-25-2022 Creatinine [Mass/Vol] 2.18 mg/dL 0.70-1.30 [facility] Work Phone: Comment on above: The validity of the calculated GFR & GFRAA in patients over 70 years has not been determined. Clinical correlation is essential. Serum or plasma urea nitroge n measurement (mass/volume)on 01-25-2022 Urea nitrogen [Mass/Vol] 76 mg/dL 7-18 [facility] Work Phone: Thin prep Papanicolaou smear with manual screeningon 01-25-2022 Thin prep Papanicolaou smear with manual screening 2 5-15 [facility] Work Phone: Whole blood hemoglobin A1c/t otal hemoglobin ratio (mass fraction)on 01-25-2022 HbA1c (Bld) [Mass fraction] 6.6 % 3.8-5.6 [facility] Work Phone: Comment on above: Normal < 5.7 % Predi abetic 5.7 - 6.4 % Diabetic >or= 6.5 % Please note range changes. Absolute lymphocyte counton 01-18-2022 Lymphocytes Auto (Unsp spec) [#/Vol] 1.51 10*3/uL 0.83-4.51 [facility] Work Phone: Basophil percentageon 2021 Basophil percentage 2.4 mg/dL 2.5-4.9 [facility] Work Phone: Basophils/100 WBC (Bld) 0.3 % 0-1 [facility] Work Phone: Chloride [Moles/Vol] 105 mmol/L 98-107 [facility] Work Phone: Eosinophils/100 WBC (Bld) 0.6 % 0-5 [facility] Work Phone: Glucose [Mass/Vol] 225 mg/dL 74-106 [facility] Work Phone: Comment on above: Glucose result great er than or equal to 200 mg/dLsuggests DIABETES MELLITUS per A.D.A. criteria. Neutrophils (Bld) [#/Vol] 7.7 10*3/uL 2.0-7.7 [facility] Work Phone: [phone] Neutrophils/100 WBC (Bld) 77.2 % 47-70 [facility] Work Phone: [phone] Potassium [Moles/Vol] 4.4 mmol/L 3.5-5.1 [facility] [facility] Work Phone: [phone] Sodium [Moles/Vol] 138 mmol/L 136-145 [facility] Work Phone: [phone] WBC (Bld) [#/Vol] 9.9 10*3/uL 4.4-11.0 [facility] Work Phone: [phone] Blood erythrocytes count (nu mber/volume)on 01-18-2022 RBC (Bld) [#/Vol] 3.88 10*6/uL 4.6-6.2 [facility] [phone] Blood hemoglobin measurement (mass/volume)on 01-18-2022 Hemoglobin (Bld) [Mass/Vol] 12.3 g/dL 13.0-16.5 [facility] Work Phone: [phone] Blood lymphocytes/100 leukoc yteson 01-18-2022 Lymphocytes/100 WBC (Bld) 15.2 % 19-41 [facility] Work Phone: [phone] Blood monocytes/100 leukocyt eson 01-18-2022 Monocytes/100 WBC (Bld) 6.3 % 0-10 [facility] Work Phone: [phone] Blood platelet mean volumeon 01-18-2022 Platelet mean volume (Bld) [Entitic vol] 10.9 fL 6.2-12.0 [facility] Work Phone: [phone] Determination of erythrocyte mean corpuscular volume (MCV)on 01-18-2022 MCV (RBC) [Entitic vol] 95.6 fL 80-94 [facility] Work Phone: [phone] Hematocrit Auto (Bld) [Volum e fraction]on 01-18-2022 Hematocrit (Bld) [Volume fraction] 37.1 % 40-54 [facility] Work Phone: [phone] Iron measurement (mass/mass) on 01-18-2022 Iron (Unsp spec) [Mass/Mass] 94 ug/dL 65-175 [facility] Work Phone: [phone] Laboratory - Chemistry and C hemistry - challengeon 01-18-2022 CO2 [Moles/Vol] 27.0 mmol/L 21.0-32.0 [facility] Work Phone: [phone] Urea nitrogen/Creatinine [Mass ratio] 37.1 mg/mg 10-20 [facility] Work Phone: [phone] Laboratory - Hematology and Cell countson 01-18-2022 Erythrocyte distribution width (RBC) [Entitic vol] 51.5 fL 35.1-43.9 [facility] Work Phone: [phone] Erythrocyte distribution width (RBC) [Ratio] 14.8 % 11.6-14.6 [facility] Work Phone: [phone] Immature granulocytes/100 WBC (Bld) 0.400 % 0.0-0.9 [facility] Work Phone: [phone] Comment on above: IG% - Immature Granu locytes (promyelocytes, myelocytes and metamyelocytes) > 1% indicates that a LEFT SHIFT is Present. MCH (RBC) [Entitic mass] 31.7 pg 27.0-32.0 [facility] Work Phone: [phone] Nucleated RBC/100 WBC (Bld) [Ratio] 0 % 0-5 [facility] Work Phone: [phone] MCHC Auto (RBC) [Mass/Vol]on 01-18-2022 MCHC (RBC) [Mass/Vol] 33.2 g/dL 32-36 [facility] Work Phone: [phone] No Panel Informationon 01-18 Estimated GFR (MDRD) Amer 37 mL/min >60 [facility] Work Phone: [phone] Comment on above: GFR Calc Estimated GFR (MDRD) Non-Af Amer 31 mL/min >60 [facility] Work Phone: [phone] Comment on above: Non- GFR Calc Total Iron Binding Capacity 239 ug/dL 250-450 [facility] Work Phone: [phone] Platelets bldon 01-18-2022 Platelets (Bld) [#/Vol] 143 10*3/uL 150-450 [facility] Work Phone: [phone] Serum or plasma albumin aubree urement (mass/volume)on 01-18-2022 Albumin [Mass/Vol] 3.2 g/dL 3.2-5.0 [facility] Work Phone: [phone] Serum or plasma calcium aubree urement (mass/volume)on 01-18-2022 Calcium [Mass/Vol] 8.4 mg/dL 8.5-10.1 [facility] Work Phone: [phone] Serum or plasma creatinine m easurement (mass/volume)on 01-18-2022 Creatinine [Mass/Vol] 2.21 mg/dL 0.70-1.30 [facility] Work Phone: Comment on above: The validity of the calculated GFR & GFRAA in patients over 70 years has not been determined. Clinical correlation is essential. Serum or plasma ferritin laurie surement (mass/volume)on 01-18-2022 Ferritin [Mass/Vol] 241 ng/mL 26-388 [facility] Work Phone: [phone] Serum or plasma iron saturat ion measurement (mass fraction)on 01-18-2022 Iron saturation [Mass fraction] 39.3 % 15.0-55.0 [facility] Work Phone: [phone] Serum or plasma urea nitroge n measurement (mass/volume)on 01-18-2022 Urea nitrogen [Mass/Vol] 82 mg/dL 7-18 [facility] Work Phone: [phone] Absolute lymphocyte counton 12-21-2021 Lymphocytes Auto (Unsp spec) [#/Vol] 1.78 10*3/uL 0.83-4.51 [facility] Work Phone: Basophil percentageon 2021 Basophil percentage 2.6 mg/dL 2.5-4.9 [facility] Work Phone: Basophils/100 WBC (Bld) 0.5 % 0-1 [facility] Work Phone: Chloride [Moles/Vol] 107 mmol/L 98-107 [facility] Work Phone: Eosinophils/100 WBC (Bld) 4.2 % 0-5 [facility] Work Phone: Glucose [Mass/Vol] 159 mg/dL 74-106 [facility] Work Phone: Comment on above: Fasting Glucose resu lt greater than or equal to 126 mg/dL suggests DIABETES MELLITUS per A.D.A. criteria. Neutrophils (Bld) [#/Vol] 5.0 10*3/uL 2.0-7.7 [facility] Work Phone: Neutrophils/100 WBC (Bld) 64.1 % 47-70 [facility] Work Phone: Potassium [Moles/Vol] 4.5 mmol/L 3.5-5.1 [facility]: Sodium [Moles/Vol] 138 mmol/L 136-145 [facility] Work Phone: WBC (Bld) [#/Vol] 7.8 10*3/uL 4.4-11.0 [facility] Work Phone: Blood erythrocytes count (nu mber/volume)on 12-21-2021 RBC (Bld) [#/Vol] 3.63 10*6/uL 4.6-6.2 [facility] Work Phone: Blood hemoglobin measurement (mass/volume)on 12-21-2021 Hemoglobin (Bld) [Mass/Vol] 11.3 g/dL 13.0-16.5 [facility] Work Phone: Blood lymphocytes/100 leukoc yteson 12-21-2021 Lymphocytes/100 WBC (Bld) 22.7 % 19-41 [facility] Work Phone: Blood monocytes/100 leukocyt eson 12-21-2021 Monocytes/100 WBC (Bld) 8.0 % 0-10 [facility] Work Phone: [phone] Blood platelet mean volumeon 12-21-2021 Platelet mean volume (Bld) [Entitic vol] 10.4 fL 6.2-12.0 [facility] Work Phone: [phone] Determination of erythrocyte mean corpuscular volume (MCV)on 12-21-2021 MCV (RBC) [Entitic vol] 95.0 fL 80-94 [facility] Work Phone: [phone] Hematocrit Auto (Bld) [Volum e fraction]on 12-21-2021 Hematocrit (Bld) [Volume fraction] 34.5 % 40-54 [facility] Work Phone: [phone] Iron measurement (mass/mass) on 12-21-2021 Iron (Unsp spec) [Mass/Mass] 79 ug/dL 65-175 [facility] Work Phone: Laboratory - Chemistry and C hemistry - challengeon 12-21-2021 CO2 [Moles/Vol] 26.0 mmol/L 21.0-32.0 [facility] Work Phone: [phone] Urea nitrogen/Creatinine [Mass ratio] 31.5 mg/mg 10-20 [facility] Work Phone: [phone] Laboratory - Hematology and Cell countson 12-21-2021 Erythrocyte distribution width (RBC) [Entitic vol] 51.0 fL 35.1-43.9 [facility] Work Phone: [phone] Erythrocyte distribution width (RBC) [Ratio] 14.8 % 11.6-14.6 [facility] Work Phone: [phone] Immature granulocytes/100 WBC (Bld) 0.500 % 0.0-0.9 [facility] Work Phone: [phone] Comment on above: IG% - Immature Granu locytes (promyelocytes, myelocytes and metamyelocytes) > 1% indicates that a LEFT SHIFT is Present. MCH (RBC) [Entitic mass] 31.1 pg 27.0-32.0 [facility] Work Phone: Nucleated RBC/100 WBC (Bld) [Ratio] 0 % 0-5 [facility] Work Phone: [phone] MCHC Auto (RBC) [Mass/Vol]on 12-21-2021 MCHC (RBC) [Mass/Vol] 32.8 g/dL 32-36 [facility] Work Phone: No Panel Informationon 12-21 Estimated GFR (MDRD) Amer 32 mL/min >60 [facility] Work Phone: Comment on above: GFR Calc Estimated GFR (MDRD) Non-Af Amer 26 mL/min >60 [facility] Work Phone: Comment on above: Non- GFR Calc Parathyroid Hormone (Intact) 43.1 pg/mL 18.4-80.1 [facility] Work Phone: Total Iron Binding Capacity 228 ug/dL 250-450 [facility] Work Phone: Platelets bldon 12-21-2021 Platelets (Bld) [#/Vol] 140 10*3/uL 150-450 [facility] Work Phone: [phone] Serum or plasma albumin aubree urement (mass/volume)on 12-21-2021 Albumin [Mass/Vol] 3.0 g/dL 3.2-5.0 [facility] Work Phone: [phone] Serum or plasma calcium aubree urement (mass/volume)on 12-21-2021 Calcium [Mass/Vol] 8.9 mg/dL 8.5-10.1 [facility] Work Phone: [phone] Serum or plasma creatinine m easurement (mass/volume)on 12-21-2021 Creatinine [Mass/Vol] 2.54 mg/dL 0.70-1.30 [facility] Work Phone: Comment on above: The validity of the calculated GFR & GFRAA in patients over 70 years has not been determined. Clinical correlation is essential. Serum or plasma ferritin laurie surement (mass/volume)on 12-21-2021 Ferritin [Mass/Vol] 356 ng/mL 26-388 [facility] Work Phone: Serum or plasma iron saturat ion measurement (mass fraction)on 12-21-2021 Iron saturation [Mass fraction] 34.6 % 15.0-55.0 [facility] Work Phone: Serum or plasma urea nitroge n measurement (mass/volume)on 12-21-2021 Urea nitrogen [Mass/Vol] 80 mg/dL 7-18 [facility] Work Phone: Vital Signs Date Time Vital Sign Value Performing Clinician Facility 03-14-2025 08:07-0400 Body mass index (BMI) [Ratio] 39.7 kg/m2 Dr. Rios Downey DO Work Phone: [facility] 03-14-2025 08:07-0400 Body temperature 97.4 [degF] Dr. Rios Downey DO Work Phone: [facility] 03-14-2025 08:07-0400 Body weight 108.[address] Rios Downey DO Work Phone: [facility] 03-14-2025 08:07-0400 Diastolic blood pressure 83 mm[Hg] Dr. Rios Downey DO Work Phone: [facility] 03-14-2025 08:07-0400 Heart rate 50 /min Dr. Rios Downey DO Work Phone: [facility] 03-14-2025 08:07-0400 Inhaled oxygen flow rate 4 L/min Dr. Rios Downey DO Work Phone: [facility] 03-14-2025 08:07-0400 Respiratory rate 20 /min Dr. Rios Downey DO Work Phone: [facility] 03-14-2025 08:07-0400 SaO2% (BldA) [Mass fraction] 99 % Dr. Rios Downey DO Work Phone: [facility] 03-14-2025 08:07-0400 Systolic blood pressure 165 mm[Hg] Dr. Rios Downey DO Work Phone: [facility] 03-23-2024 15:00-0400 Body height 165.[address] Rios Downey Work Phone: [facility] 03-23-2024 15:00-0400 Body mass index (BMI) [Ratio] 38.9 kg/m2 Dr. Rios Downey Work Phone: [facility] 03-23-2024 15:00-0400 Body weight 106.[address] Rios Downey Work Phone: [facility] 03-23-2024 15:00-0400 Diastolic blood pressure 68 mm[Hg] Dr. Rios Downey Work Phone: [facility] 03-23-2024 15:00-0400 Heart rate 73 /min Dr. Rios Downey Work Phone: [facility] 03-23-2024 15:00-0400 Inhaled oxygen flow rate 5 L/min Dr. Rios Downey Work Phone: [facility] 03-23-2024 15:00-0400 Respiratory rate 22 /min Dr. Rios Downey Work Phone: [facility] 03-23-2024 15:00-0400 SaO2% (BldA) [Mass fraction] 96 % Dr. Rios Downey Work Phone: [facility] 03-23-2024 15:00-0400 Systolic blood pressure 111 mm[Hg] Dr. Rios Downey Work Phone: [facility] 02-19-2024 16:28-0400 Body temperature 97.6 [degF] [facility] 02-19-2024 16:28-0400 Diastolic blood pressure 72 mm[Hg] [facility] 02-19-2024 16:28-0400 Heart rate 52 /min [facility] 02-19-2024 16:28-0400 Respiratory rate 17 /min [facility] 02-19-2024 16:28-0400 SaO2% (BldA) [Mass fraction] 95 % [facility] 02-19-2024 16:28-0400 Systolic blood pressure 149 mm[Hg] [facility] 02-19-2024 13:00-0400 Inhaled oxygen flow rate 2 L/min [facility] 02-19-2024 12:32-0400 Body mass index (BMI) [Ratio] 39.4 kg/m2 [facility] 02-19-2024 12:32-0400 Body weight 107.4 kg [facility] 02-19-2024 11:34-0400 Body height 165.1 cm [facility] 02-16-2024 03:00-0400 Body temperature 97.7 [degF] [facility] 02-16-2024 03:00-0400 Diastolic blood pressure 100 mm[Hg] [facility] 02-16-2024 03:00-0400 Heart rate 57 /min [facility] 02-16-2024 03:00-0400 Respiratory rate 18 /min [facility] 02-16-2024 03:00-0400 SaO2% (BldA) [Mass fraction] 98 % [facility] 02-16-2024 03:00-0400 Systolic blood pressure 135 mm[Hg] [facility] 02-15-2024 23:56-0400 Body mass index (BMI) [Ratio] 38.6 kg/m2 [facility] 02-15-2024 23:56-0400 Body weight 105.4 kg [facility] 02-15-2024 22:56-0400 Body height 165.1 cm [facility] 02-15-2024 22:56-0400 Inhaled oxygen flow rate 2 L/min [facility] 11-23-2023 15:42-0500 Body height 165.[address] Rios Downey Work Phone: [facility] 11-23-2023 15:42-0500 Body mass index (BMI) [Ratio] 41.5 kg/m2 Dr. Rios Downey Work Phone: [facility] 11-23-2023 15:42-0500 Body temperature 97.4 [degF] Dr. Rios Downey Work Phone: [facility] 11-23-2023 15:42-0500 Body weight 113.[address] Rios Downey Work Phone: [facility] 11-23-2023 15:42-0500 Diastolic blood pressure 53 mm[Hg] Dr. Rios Downey Work Phone: [facility] 11-23-2023 15:42-0500 Heart rate 61 /min Dr. Rios Downey Work Phone: [facility] 11-23-2023 15:42-0500 Inhaled oxygen flow rate 2 L/min Dr. Rios Downey Work Phone: [facility] 11-23-2023 15:42-0500 Respiratory rate 16 /min Dr. Rios Downey Work Phone: [facility] 11-23-2023 15:42-0500 Systolic blood pressure 101 mm[Hg] Dr. Rios Downey Work Phone: [facility] 10-05-2023 07:44-0500 Body height 165.[address] Rios Downey Work Phone: [facility] 10-05-2023 07:44-0500 Body mass index (BMI) [Ratio] 41.4 kg/m2 Dr. Rios Downey Work Phone: [facility] 10-05-2023 07:44-0500 Body temperature 98.5 [degF] Dr. Rios Downey Work Phone: [facility] 10-05-2023 07:44-0500 Body weight 112.[address] Rios Downey Work Phone: [facility] 10-05-2023 07:44-0500 Diastolic blood pressure 59 mm[Hg] Dr. Rios Downey Work Phone: [facility] 10-05-2023 07:44-0500 Heart rate 65 /min Dr. Rios Downey Work Phone: [facility] 10-05-2023 07:44-0500 Inhaled oxygen flow rate 2 L/min Dr. Rios Downey Work Phone: [facility] 10-05-2023 07:44-0500 Respiratory rate 17 /min Dr. Rios Downey Work Phone: [facility] 10-05-2023 07:44-0500 SaO2% (BldA) [Mass fraction] 94 % Dr. Rios Downey Work Phone: [facility] 10-05-2023 07:44-0500 Systolic blood pressure 109 mm[Hg] Dr. Rios Downey Work Phone: [facility] 09-28-2023 15:55-0400 Body height 165.[address] Rios Downey Work Phone: [facility] 09-28-2023 15:55-0400 Body mass index (BMI) [Ratio] 41.4 kg/m2 Dr. Rios Downey Work Phone: [facility] 09-28-2023 15:55-0400 Body temperature 97.9 [degF] Dr. Rios Downey Work Phone: [facility] 09-28-2023 15:55-0400 Body weight 112.[address] Rios Downey Work Phone: [facility] 09-28-2023 15:55-0400 Diastolic blood pressure 72 mm[Hg] Dr. Rios Downey Work Phone: [facility] 09-28-2023 15:55-0400 Heart rate 54 /min Dr. Rios Downey Work Phone: [facility] 09-28-2023 15:55-0400 Inhaled oxygen flow rate 2 L/min Dr. Rios Downey Work Phone: [facility] 09-28-2023 15:55-0400 Respiratory rate 18 /min Dr. Rios Downey Work Phone: [facility] 09-28-2023 15:55-0400 SaO2% (BldA) [Mass fraction] 96 % Dr. Rios Downey Work Phone: [facility] 09-28-2023 15:55-0400 Systolic blood pressure 154 mm[Hg] Dr. Rios Downey Work Phone: [facility] 09-22-2023 16:45-0400 Body temperature 98.1 [degF] Dr. Rios Downey Work Phone: [facility] 09-22-2023 16:45-0400 Diastolic blood pressure 74 mm[Hg] Dr. Rios Downey Work Phone: [facility] 09-22-2023 16:45-0400 Heart rate 66 /min Dr. Rios Downey Work Phone: [facility] 09-22-2023 16:45-0400 Inhaled oxygen flow rate 5 L/min Dr. Rios Downey Work Phone: [facility] 09-22-2023 16:45-0400 Respiratory rate 18 /min Dr. Rios Downey Work Phone: [facility] 09-22-2023 16:45-0400 SaO2% (BldA) [Mass fraction] 95 % Dr. Rios Downey Work Phone: [facility] 09-22-2023 16:45-0400 Systolic blood pressure 143 mm[Hg] Dr. Rios Downey Work Phone: [facility] 09-22-2023 02:48-0400 Body mass index (BMI) [Ratio] 41.6 kg/m2 Dr. Rios Downey Work Phone: [facility] 09-22-2023 02:48-0400 Body weight 113.[address] Rios Downey Work Phone: [facility] 09-20-2023 22:50-0400 Inhaled oxygen concentration 30 % Dr. Rios Downey Work Phone: [facility] 09-17-2023 11:05-0400 Body height 165.[address] Rios Downey Work Phone: [facility] 09-16-2023 20:02-0400 Diastolic blood pressure 77 mm[Hg] Dr. Rios Downey Work Phone: [facility] 09-16-2023 20:02-0400 Heart rate 56 /min Dr. Rios Downey Work Phone: [facility] 09-16-2023 20:02-0400 Inhaled oxygen flow rate 6 L/min Dr. Rios Downey Work Phone: [facility] 09-16-2023 20:02-0400 Respiratory rate 14 /min Dr. Rios Downey Work Phone: [facility] 09-16-2023 20:02-0400 SaO2% (BldA) [Mass fraction] 99 % Dr. Rios Downey Work Phone: [facility] 09-16-2023 20:02-0400 Systolic blood pressure 144 mm[Hg] Dr. Rios Downey Work Phone: [facility] 09-16-2023 19:15-0400 Body temperature 96.6 [degF] Dr. Rios Downey Work Phone: [facility] 09-16-2023 16:12-0400 Body mass index (BMI) [Ratio] 43.5 kg/m2 Dr. Rios Downey Work Phone: [facility] 09-16-2023 16:12-0400 Body weight 118.[address] Rios Downey Work Phone: [facility] 09-16-2023 15:20-0400 Body height 165.[address] Rios Downey Work Phone: [facility] 08-31-2023 15:55-0400 Body temperature 96.9 [degF] Dr. Rios Downey Work Phone: [facility] 08-31-2023 15:55-0400 Diastolic blood pressure 83 mm[Hg] Dr. Rios Downey Work Phone: [facility] 08-31-2023 15:55-0400 Heart rate 60 /min Dr. Rios Downey Work Phone: [facility] 08-31-2023 15:55-0400 Inhaled oxygen flow rate 2 L/min Dr. Rios Downey Work Phone: [facility] 08-31-2023 15:55-0400 Respiratory rate 18 /min Dr. Rios Downey Work Phone: [facility] 08-31-2023 15:55-0400 SaO2% (BldA) [Mass fraction] 93 % Dr. Rios Downey Work Phone: [facility] 08-31-2023 15:55-0400 Systolic blood pressure 158 mm[Hg] Dr. Rios Downey Work Phone: [facility] 08-22-2023 15:36-0400 Body temperature 97.8 [degF] Dr. Rios Downey Work Phone: [facility] 08-22-2023 15:36-0400 Diastolic blood pressure 60 mm[Hg] Dr. Rios Downey Work Phone: [facility] 08-22-2023 15:36-0400 Heart rate 71 /min Dr. Rios Downey Work Phone: [facility] 08-22-2023 15:36-0400 Inhaled oxygen flow rate 3 L/min Dr. Rios Downey Work Phone: [facility] 08-22-2023 15:36-0400 Respiratory rate 16 /min Dr. Rios Downey Work Phone: [facility] 08-22-2023 15:36-0400 SaO2% (BldA) [Mass fraction] 100 % Dr. Rios Downey Work Phone: [facility] 08-22-2023 15:36-0400 Systolic blood pressure 124 mm[Hg] Dr. Rios Downey Work Phone: [facility] 08-22-2023 04:29-0400 Body mass index (BMI) [Ratio] 41.1 kg/m2 Dr. Rios Downey Work Phone: [facility] 08-22-2023 04:29-0400 Body weight 112.[address] Rios Downey Work Phone: [facility] 08-19-2023 11:06-0400 Body height 165.[address] Rios Downey Work Phone: [facility] 08-18-2023 16:35-0400 Diastolic blood pressure 52 mm[Hg] Dr. Rios Downey Work Phone: [facility] 08-18-2023 16:35-0400 Heart rate 61 /min Dr. Rios Downey Work Phone: [facility] 08-18-2023 16:35-0400 Respiratory rate 19 /min Dr. Rios Downey Work Phone: [facility] 08-18-2023 16:35-0400 SaO2% (BldA) [Mass fraction] 98 % Dr. Rios Downey Work Phone: [facility] 08-18-2023 16:35-0400 Systolic blood pressure 119 mm[Hg] Dr. Rios Downey Work Phone: [facility] 08-18-2023 15:00-0400 Body temperature 97.6 [degF] Dr. Rios Downey Work Phone: [facility] 08-18-2023 12:57-0400 Inhaled oxygen flow rate 4 L/min Dr. Rios Downey Work Phone: [facility] 08-18-2023 11:52-0400 Body height 165.[address] Rios Downey Work Phone: [facility] 08-18-2023 11:52-0400 Body mass index (BMI) [Ratio] 45.4 kg/m2 Dr. Rios Downey Work Phone: [facility] 08-18-2023 11:52-0400 Body weight 123.[address] Rios Downey Work Phone: [facility] 08-17-2023 17:59-0400 Body mass index (BMI) [Ratio] 39.9 kg/m2 Dr. Rios Downey Work Phone: [facility] 08-17-2023 17:59-0400 Body weight 108.[address] Rios Downey Work Phone: [facility] 08-17-2023 16:00-0400 Diastolic blood pressure 71 mm[Hg] Dr. Rios Downey Work Phone: [facility] 08-17-2023 16:00-0400 Heart rate 64 /min Dr. Rios Downey Work Phone: [facility] 08-17-2023 16:00-0400 Inhaled oxygen flow rate 4 L/min Dr. Rios Downey Work Phone: [facility] 08-17-2023 16:00-0400 Respiratory rate 16 /min Dr. Rios Downey Work Phone: [facility] 08-17-2023 16:00-0400 SaO2% (BldA) [Mass fraction] 99 % Dr. Rios Downey Work Phone: [facility] 08-17-2023 16:00-0400 Systolic blood pressure 117 mm[Hg] Dr. Rios Downey Work Phone: [facility] 08-16-2023 21:12-0400 Body temperature 98.2 [degF] Dr. Rios Downey Work Phone: [facility] 08-10-2023 20:37-0400 Inhaled oxygen flow rate 4 L/min Dr. Rios Downey Work Phone: [facility] 08-10-2023 20:37-0400 SaO2% (BldA) [Mass fraction] 92 % Dr. Rios Downey Work Phone: [facility] 08-10-2023 20:14-0400 Heart rate 81 /min Dr. Rios Downey Work Phone: [facility] 08-10-2023 20:14-0400 Respiratory rate 18 /min Dr. Rios Downey Work Phone: [facility] 08-10-2023 15:40-0400 Body temperature 97.3 [degF] Dr. Rios Downey Work Phone: [facility] 08-10-2023 15:40-0400 Diastolic blood pressure 74 mm[Hg] Dr. Rios Downey Work Phone: [facility] 08-10-2023 15:40-0400 Systolic blood pressure 147 mm[Hg] Dr. Rios Downey Work Phone: [facility] 08-10-2023 14:42-0400 Body height 165.[address] Rios Downey Work Phone: [facility] 08-10-2023 14:42-0400 Body weight 111.[address] Rios Downey Work Phone: [facility] 08-09-2023 06:00-0400 Body mass index (BMI) [Ratio] 40.8 kg/m2 Dr. Rios Downey Work Phone: [facility] 07-27-2023 07:09-0400 Inhaled oxygen flow rate 4 L/min Dr. Rios Downey Work Phone: [facility] 07-27-2023 07:09-0400 SaO2% (BldA) [Mass fraction] 99 % Dr. Rios Downey Work Phone: [facility] 07-27-2023 05:52-0400 Body mass index (BMI) [Ratio] 40.7 kg/m2 Dr. Rios Downey Work Phone: [facility] 07-27-2023 05:52-0400 Body weight 110.[address] Rios Downey Work Phone: [facility] 07-26-2023 16:00-0400 Body temperature 96.1 [degF] Dr. Rios Downey Work Phone: [facility] 07-26-2023 16:00-0400 Diastolic blood pressure 57 mm[Hg] Dr. Rios Downey Work Phone: [facility] 07-26-2023 16:00-0400 Heart rate 60 /min Dr. Rios Downey Work Phone: [facility] 07-26-2023 16:00-0400 Respiratory rate 16 /min Dr. Rios Downey Work Phone: [facility] 07-26-2023 16:00-0400 Systolic blood pressure 116 mm[Hg] Dr. Rios Downey Work Phone: [facility] 07-20-2023 16:11-0400 Body height 165.[address] Rios Downey Work Phone: [facility] 07-11-2023 11:29-0400 Inhaled oxygen flow rate 4 L/min Dr. Rios Downey Work Phone: [facility] 07-11-2023 10:49-0400 SaO2% (BldA) [Mass fraction] 98 % Dr. Rios Downey Work Phone: [facility] 07-10-2023 16:00-0400 Body temperature 96.9 [degF] Dr. Rios Downey Work Phone: [facility] 07-10-2023 16:00-0400 Diastolic blood pressure 66 mm[Hg] Dr. Rios Downey Work Phone: [facility] 07-10-2023 16:00-0400 Heart rate 68 /min Dr. Rios Downey Work Phone: [facility] 07-10-2023 16:00-0400 Respiratory rate 18 /min Dr. Rios Downey Work Phone: [facility] 07-10-2023 16:00-0400 Systolic blood pressure 159 mm[Hg] Dr. Rios Downey Work Phone: [facility] [facility] 07-[facility]-2023 13:20-0400 Body mass index (BMI) [Ratio] 44.1 kg/m2 Dr. Rios Downey Work Phone: [facility] 07-09-2023 13:20-0400 Body weight 120.[address] Rios Downey Work Phone: [facility] 07-06-2023 15:30-0400 Body height 165.[address] Rios Downey Work Phone: [facility] 07-04-2023 19:55-0400 Inhaled oxygen concentration 92 % Dr. Rios Downey Work Phone: [facility] 07-03-2023 09:00-0400 Inhaled oxygen flow rate 4 L/min Dr. Rios Downey Work Phone: [facility] 07-03-2023 08:37-0400 Body temperature 97.8 [degF] Dr. Rios Downey Work Phone: [facility] 07-03-2023 08:37-0400 Diastolic blood pressure 75 mm[Hg] Dr. Rios Downey Work Phone: [facility] 07-03-2023 08:37-0400 Heart rate 60 /min Dr. Rios Downey Work Phone: [facility] 07-03-2023 08:37-0400 Respiratory rate 17 /min Dr. Rios Downey Work Phone: [facility] 07-03-2023 08:37-0400 SaO2% (BldA) [Mass fraction] 98 % Dr. Rios Downey Work Phone: [facility] 07-03-2023 08:37-0400 Systolic blood pressure 157 mm[Hg] Dr. Rios Downey Work Phone: [facility] 07-03-2023 04:47-0400 Body mass index (BMI) [Ratio] 44.1 kg/m2 Dr. Rios Downey Work Phone: [facility] 07-03-2023 04:47-0400 Body weight 120.[address] Rios Downey Work Phone: [facility] 07-01-2023 14:18-0400 Body height 165.[address] Rios Downey Work Phone: [facility] 06-29-2023 14:24-0400 Body temperature 97 [degF] [facility] 06-29-2023 14:24-0400 Diastolic blood pressure 63 mm[Hg] [facility] 06-29-2023 14:24-0400 Heart rate 66 /min [facility] 06-29-2023 14:24-0400 Inhaled oxygen flow rate 4 L/min [facility] 06-29-2023 14:24-0400 Respiratory rate 22 /min [facility] 06-29-2023 14:24-0400 SaO2% (BldA) [Mass fraction] 96 % [facility] 06-29-2023 14:24-0400 Systolic blood pressure 156 mm[Hg] [facility] 06-29-2023 12:55-0400 Body height 165.1 cm [facility] 06-29-2023 12:55-0400 Body mass index (BMI) [Ratio] 44.1 kg/m2 [facility] 06-29-2023 12:55-0400 Body weight 120.3 kg [facility] 01-31-2023 15:27-0500 Body height 165.[address] Jennifer Lu Work Phone: [facility] 01-31-2023 15:27-0500 Body mass index (BMI) [Ratio] 42.5 kg/m2 Dr. Jennifer Lu Work Phone: [facility] 01-31-2023 15:27-0500 Body weight 116.[address] Jennifer Lu Work Phone: [facility] 01-31-2023 15:27-0500 Diastolic blood pressure 78 mm[Hg] Dr. Jennifer Lu Work Phone: [facility] 01-31-2023 15:27-0500 Heart rate 74 /min Dr. Jennifer uL Work Phone: [facility] 01-31-2023 15:27-0500 Inhaled oxygen flow rate 2 L/min Dr. Jennifer Lu Work Phone: [facility] 01-31-2023 15:27-0500 Respiratory rate 20 /min Dr. Jennifer Lu Work Phone: [facility] 01-31-2023 15:27-0500 Systolic blood pressure 129 mm[Hg] Dr. Jennifer Lu Work Phone: [facility] 10-07-2022 13:47-0500 Body height 165.[address] Jennifer Lu Work Phone: [facility] 10-07-2022 13:47-0500 Body mass index (BMI) [Ratio] 44.1 kg/m2 Dr. Jennifer Lu Work Phone: [facility] 10-07-2022 13:47-0500 Body temperature 98.4 [degF] Dr. Jennifer Lu Work Phone: [facility] 10-07-2022 13:47-0500 Body weight 120.[address] Jennifer Lu Work Phone: [facility] 10-07-2022 13:47-0500 Diastolic blood pressure 55 mm[Hg] Dr. Jennifer Lu Work Phone: [facility] 10-07-2022 13:47-0500 Heart rate 62 /min Dr. Jennifer Lu Work Phone: [facility] 10-07-2022 13:47-0500 Inhaled oxygen flow rate 2 L/min Dr. Jennifer Lu Work Phone: [facility] 10-07-2022 13:47-0500 Respiratory rate 16 /min Dr. Jennifer Lu Work Phone: [facility] 10-07-2022 13:47-0500 SaO2% (BldA) [Mass fraction] 99 % Dr. Jennifer Lu Work Phone: [facility] 10-07-2022 13:47-0500 Systolic blood pressure 112 mm[Hg] Dr. Jennifer Lu Work Phone: [facility] 07-12-2022 16:10-0400 Body height 165.[address] Jennifer Lu Work Phone: [facility] Work Phone: 07-12-2022 16:10-0400 Body temperature 97 [degF] Dr. Jennifer Lu Work Phone: [facility] Work Phone: 07-12-2022 16:10-0400 Diastolic blood pressure 58 mm[Hg] Dr. Jennifer Lu Work Phone: [facility] Work Phone: 07-12-2022 16:10-0400 Heart rate 61 /min Dr. Jennifer Lu Work Phone: [facility] Work Phone: 07-12-2022 16:10-0400 Inhaled oxygen flow rate 4 L/min Dr. Jennifer Lu Work Phone: [facility] Work Phone: 07-12-2022 16:10-0400 Respiratory rate 18 /min Dr. Jennifer Lu Work Phone: [facility] Work Phone: 07-12-2022 16:10-0400 SaO2% (BldA) [Mass fraction] 100 % Dr. Jennifer Lu Work Phone: [facility] Work Phone: 07-12-2022 16:10-0400 Systolic blood pressure 131 mm[Hg] Dr. Jennifer Lu Work Phone: [facility] Work Phone: 06-16-2022 15:14-0400 Heart rate 67 /min Dr. Jennifer Lu Work Phone: [facility] Work Phone: 06-16-2022 15:05-0400 Body mass index (BMI) [Ratio] 43.7 kg/m2 Dr. Jennifer Lu Work Phone: [facility] Work Phone: 06-16-2022 15:05-0400 Body weight 119.[address] Jennifer Lu Work Phone: [facility] Work Phone: 06-16-2022 15:05-0400 Diastolic blood pressure 64 mm[Hg] Dr. Jennifer Lu Work Phone: [facility] Work Phone: 06-16-2022 15:05-0400 Inhaled oxygen flow rate 4 L/min Dr. Jennifer Lu Work Phone: [facility] Work Phone: 06-16-2022 15:05-0400 Respiratory rate 20 /min Dr. Jennifer Lu Work Phone: [facility] Work Phone: 06-16-2022 15:05-0400 Systolic blood pressure 102 mm[Hg] Dr. Jennifer Lu Work Phone: [facility] Work Phone: 06-14-2022 15:09-0400 Body height 165.[address] Jennifer Lu Work Phone: [facility] Work Phone: 06-14-2022 15:09-0400 Body mass index (BMI) [Ratio] 44.7 kg/m2 Dr. Jennifer Lu Work Phone: [facility] Work Phone: 06-14-2022 15:09-0400 Body temperature 97.9 [degF] Dr. Jennifer Lu Work Phone: [facility] Work Phone: 06-14-2022 15:09-0400 Body weight 122.[address] Jennifer Lu Work Phone: [facility] Work Phone: 06-14-2022 15:09-0400 Diastolic blood pressure 39 mm[Hg] Dr. Jennifer Lu Work Phone: [facility] Work Phone: 06-14-2022 15:09-0400 Heart rate 56 /min Dr. Jennifer Lu Work Phone: [facility] Work Phone: 06-14-2022 15:09-0400 Inhaled oxygen flow rate 4 L/min Dr. Jennifer Lu Work Phone: [facility] Work Phone: 06-14-2022 15:09-0400 Respiratory rate 18 /min Dr. Jennifer Lu Work Phone: [facility] Work Phone: 06-14-2022 15:09-0400 SaO2% (BldA) [Mass fraction] 100 % Dr. Jennifer Lu Work Phone: [facility] Work Phone: 06-14-2022 15:09-0400 Systolic blood pressure 99 mm[Hg] Dr. Jennifer Lu Work Phone: [facility] Work Phone: 04-16-2022 13:16-0400 Inhaled oxygen flow rate 4 L/min Dr. Jennifer Lu Work Phone: [facility] Work Phone: 04-16-2022 13:16-0400 SaO2% (BldA) [Mass fraction] 95 % Dr. Jennifer Lu Work Phone: [facility] Work Phone: 04-16-2022 12:47-0400 Body height 165.[address] Jennifer Lu Work Phone: [facility] Work Phone: 04-16-2022 12:47-0400 Body mass index (BMI) [Ratio] 43.7 kg/m2 Dr. Jennifer Lu Work Phone: [facility] Work Phone: 04-16-2022 12:47-0400 Body temperature 97.5 [degF] Dr. Jennifer Lu Work Phone: [facility] Work Phone: 04-16-2022 12:47-0400 Body weight 119.[address] Jennifer Lu Work Phone: [facility] Work Phone: 04-16-2022 12:47-0400 Diastolic blood pressure 70 mm[Hg] Dr. Jennifer Lu Work Phone: [facility] Work Phone: 04-16-2022 12:47-0400 Heart rate 58 /min Dr. Jennifer Lu Work Phone: [facility] Work Phone: 04-16-2022 12:47-0400 Systolic blood pressure 110 mm[Hg] Dr. Jennifer Lu Work Phone: [facility] Work Phone: 03-15-2022 14:47-0400 Body height 165.[address] Jennifer Lu Work Phone: [facility] Work Phone: 03-15-2022 14:47-0400 Body mass index (BMI) [Ratio] 41.5 kg/m2 Dr. Jennifer Lu Work Phone: [facility] Work Phone: 03-15-2022 14:47-0400 Body temperature 97.9 [degF] Dr. Jennifer Lu Work Phone: [facility] Work Phone: 03-15-2022 14:47-0400 Body weight 113.[address] Jennifer Lu Work Phone: [facility] Work Phone: 03-15-2022 14:47-0400 Diastolic blood pressure 61 mm[Hg] Dr. Jennifer Lu Work Phone: [facility] Work Phone: 03-15-2022 14:47-0400 Heart rate 74 /min Dr. Jennifer Lu Work Phone: [facility] Work Phone: 03-15-2022 14:47-0400 Inhaled oxygen flow rate 4 L/min Dr. Jennifer Lu Work Phone: [facility] Work Phone: 03-15-2022 14:47-0400 Respiratory rate 20 /min Dr. Jennifer Lu Work Phone: [facility] Work Phone: 03-15-2022 14:47-0400 SaO2% (BldA) [Mass fraction] 100 % Dr. Jennifer Lu Work Phone: [facility] Work Phone: 03-15-2022 14:47-0400 Systolic blood pressure 128 mm[Hg] Dr. Jennifer Lu Work Phone: [facility] Work Phone: 12-07-2021 14:36-0500 Body mass index (BMI) [Ratio] 42.9 kg/m2 Dr. Jennifer Lu Work Phone: [facility] Work Phone: 12-07-2021 14:36-0500 Body weight 117.[address] Jennifer Lu Work Phone: [facility] Work Phone: 12-07-2021 14:36-0500 Diastolic blood pressure 72 mm[Hg] Dr. Jennifer Lu Work Phone: [facility] Work Phone: 12-07-2021 14:36-0500 Heart rate 49 /min Dr. Jennifer Lu Work Phone: [facility] Work Phone: 12-07-2021 14:36-0500 Systolic blood pressure 134 mm[Hg] Dr. Jennifer Lu Work Phone: [facility] Work Phone: Encounters Encounter Date Encounter Type Care Provider Facility Start: 05-22-2025 ambulatory [facility] Facility :[facility] Start: 04-25-2025 End: 04-25-[address] Pepe Au MD -[facility] Work Phone: Start: 04-25-2025 End: 04-25-[address] Rios Downey Work Phone: [facility] Work Phone: Start: 04-15-2025 End: 04-15-[address] Pepe Au MD -[facility] Work Phone: Start: 04-15-2025 End: 04-15-2025 ambulatory [facility] Facility:[facility] Start: 03-28-2025 End: 03-28-[address] Pepe Au MD -[facility] Work Phone: Start: 03-28-2025 End: 03-28-2025 ambulatory [facility] Facility:[facility] Start: 03-14-2025 End: 03-14-2025 Patient encounter procedure Gosia [facility] Work Phone: Start: 03-14-2025 End: 03-14-2025 ambulatory Rios Downey Facility:[facility] Start: 02-26-2025 End: 02-26-[address] Pepe Au MD -[facility] Work Phone: Start: 02-26-2025 End: 02-26-[address] Rios Doweny DO Work Phone: [facility] Work Phone: Start: 01-29-2025 End: 01-29-[address] Pepe Au MD -[facility] Work Phone: Start: 01-29-2025 End: 01-29-2025 ambulatory [facility] Facility:[facility] Start: 01-01-2025 End: 01-01-[address] Pepe Au MD -[facility] Work Phone: Start: 01-01-2025 End: 01-01-2025 ambulatory [facility] Facility:[facility] Start: 12-04-2024 End: 12-04-[address] Pepe Au MD -[facility] Work Phone: Start: 12-04-2024 End: 12-04-2024 ambulatory Rios [facility] Start: 11-07-2024 Encounter for genera l adult medical examination without abnormal findings [facility] Start: 10-31-2024 End: 10-31-[address] Pepe Au MD -[facility] Work Phone: Start: 10-31-2024 End: 10-31-2024 ambulatory Rios [facility] Facility:[facility] Start: 10-22-2024 End: 10-22-2024 ambulatory Rios [facility] Facility:[facility] Start: 10-15-2024 End: 10-15-2024 ambulatory Rios Maloneins Facility:[facility] Start: 10-10-2024 ambulatory [facility] Facility: [facility] Start: 10-10-2024 End: 10-10-2024 ambulatory [facility] Facility:[facility] Start: 10-02-2024 End: 10-02-2024 ambulatory [facility] Facility:[facility] Start: 09-24-2024 End: 09-24-2024 ambulatory [facility] Facility:[facility] Start: 08-30-2024 End: 08-30-2024 ambulatory [facility] Facility:[facility] Start: 08-02-2024 End: 08-02-2024 ambulatory Rios Downey Facility:[facility] Start: 07-04-2024 End: 07-04-[facility] Start: 06-06-2024 End: 06-06-2024 ambulatory [facility] Facility:[facility] Start: 05-30-2024 End: 05-30-2024 ambulatory [facility] Facility:[facility] Start: 03-23-2024 End: 03-23-[address] Rios Downey Work Phone: [facility] Work Phone: Start: 03-22-2024 End: 03-22-[address] Rios Downey Work Phone: [facility] Work Phone: Start: 03-22-2024 End: 03-22-[address] Rios Downey Work Phone: [facility] Work Phone: Start: 03-14-2024 End: 03-14-2024 ambulatory [facility] Work Phone: Start: 03-14-2024 End: 03-14-2024 Patient encounter procedure [facility] Work Phone: Start: 02-19-2024 End: 02-19-2024 Emergency department patient visit [facility] Work Phone: Start: 02-15-2024 End: 02-16-2024 Emergency department patient visit [facility] Work Phone: Start: 02-15-2024 End: 02-15-2024 ambulatory [facility] Work Phone: Start: 02-15-2024 End: 02-15-2024 Patient encounter procedure [facility] Work Phone: Start: 01-18-2024 End: 01-18-[address] Rios Downey Work Phone: [facility] Work Phone: Start: 01-18-2024 End: 01-18-[address] Rios Downey Work Phone: [facility] Work Phone: Start: 12-21-2023 End: 12-21-[address] Rios Downey Work Phone: [facility] Work Phone: Start: 12-02-2023 End: 12-02-[address] Rios Downey Work Phone: [facility] Work Phone: Start: 11-23-2023 End: 11-23-[address] Rios Downey Work Phone: [facility] Work Phone: Start: 11-23-2023 End: 11-23-[address] [facility] Dow[facility] Start: 11-23-2023 End: 11-23-2023 Dr. Rios Dow[facility] Start: 10-26-2023 End: 10-26-[address] Rios Downey Work Phone: [facility] Work Phone: Start: 10-26-2023 End: 10-26-[address] Rios Dow[facility] Start: 10-26-2023 End: 10-26-2023 Dr. Rios Dow[facility] Start: 10-05-2023 End: 10-05-[address] Rios Downey Work Phone: [facility] Work Phone: Start: 10-05-2023 End: 10-05-2023 Dr. Rios Downey Work Phone: [facility] [place] Work Phone: Start: 09-28-2023 End: 09-28-[address] Rios Downey Work Phone: [facility] Work Phone: Start: 09-28-2023 End: 09-28-[address] Rios Downey Work Phone: [facility] Work Phone: Start: 09-28-2023 End: 09-28-2023 Dr. Rios Downey Work Phone: [facility] Work Phone: Start: 09-22-2023 Non-patient / Non-visit Dr. Carlos Downey Work Phone: [facility] Work Phone: Start: 09-22-2023 Dr. Rios winters Work Phone: [facility] Work Phone: Start: 09-22-2023 Non-patient / Non-visit Dr. Carlos Downey Work Phone: [facility] Start: 09-22-2023 Dr. Rios winters Work Phone: [facility] Start: 09-21-2023 Non-patient / Non-visit Dr. Carlos Downey Work Phone: [facility] Work Phone: Start: 09-21-2023 Dr. Rios winters Work Phone: [facility] Work Phone: Start: 09-21-2023 Non-patient / Non-visit Dr. Carlos Downey Work Phone: [facility] Start: 09-21-2023 Dr. Rios Malone ins Work Phone: [facility] Start: 09-20-2023 Dr. Rios Malone ins Work Phone: [facility] Start: 09-20-2023 Dr. Rios Malone ins Work Phone: [facility] Work Phone: Start: 09-19-2023 Dr. Rios Malone ins Work Phone: [facility] Work Phone: Start: 09-18-2023 Dr. Rios Malone ins Work Phone: [facility] Work Phone: Start: 09-17-2023 Dr. Rios Malone ins Work Phone: [facility] Work Phone: Start: 09-16-2023 End: 09-22-2023 Evaluation and management of inpatient Dr. Rios Downey Work Phone: [facility] Work Phone: Start: 09-16-2023 End: 09-22-2023 Dr. Rios Downey Work Phone: [facility]-Progressive Care Unit Work Phone: Start: 08-31-2023 End: 08-31-2023 Dr. Rios Downey Work Phone: [facility]-Emergency Department Work Phone: Start: 08-22-2023 Dr. Rios winters Work Phone: [facility] Work Phone: Start: 08-21-2023 Dr. Rios winters Work Phone: [facility] Work Phone: Start: 08-20-2023 Dr. Rios winters Work Phone: [facility] Work Phone: Start: 08-19-2023 Dr. Rios Malone ins Work Phone: [facility] Work Phone: Start: 08-18-2023 Evaluation and management of inpatient Dr. Rios Downey Work Phone: [facility] Work Phone: Start: 08-18-2023 End: 08-22-2023 Evaluation and management of inpatient Dr. Rios Downey Work Phone: [facility] Work Phone: Start: 08-18-2023 End: 08-22-2023 Dr. Rios Downey Work Phone: [facility] Work Phone: Start: 08-18-2023 Dr. Rios winters Work Phone: [facility]Emergency Department Work Phone: Start: 08-06-2023 End: 08-06-[address] Rios oDwney Work Phone: [facility] Work Phone: Start: 08-06-2023 End: 08-06-[address] Rios Downey Work Phone: [facility], [facility] Work Phone: Start: 08-06-2023 End: 08-06-2023 Dr. Rios Downey Work Phone: [facility], [facility] Work Phone: Start: 07-23-2023 End: 07-23-[address] Rios Downey [facility] Work Phone: Start: 07-23-2023 End: 07-23-2023 Dr. Rios Downey [facility] Work Phone: Start: 07-22-2023 End: 07-22-[address] Rios Downey Work Phone: [facility] Work Phone: Start: 07-22-2023 End: 07-22-[address] Rios Downey [facility] Work Phone: Start: 07-22-2023 End: 07-22-2023 Dr. Rios Downey Work Phone: [facility] Work Phone: Start: 07-06-2023 End: 07-06-[address] Rios Downey Work Phone: [facility] Work Phone: Start: 07-06-2023 End: 07-06-[address] Rios Downey Work Phone: [facility], [facility] Work Phone: Start: 07-06-2023 End: 07-06-2023 Dr. Rios Downey Work Phone: [facility], [facility] Work Phone: Start: 07-03-2023 End: 08-18-2023 Evaluation and management of inpatient Dr. Rios Downey [facility] Start: 07-03-2023 End: 08-18-2023 Dr. Rios Downey [facility] Start: 07-03-2023 Non-patient / Non-visit Dr. Carlos Downey Work Phone: [facility] Work Phone: Start: 07-03-2023 Dr. Rios winters Work Phone: [facility] Work Phone: Start: 07-02-2023 Non-patient / Non-visit Dr. Carlos Downey Work Phone: [facility] Work Phone: Start: 07-02-2023 Dr. Rios winters Work Phone: [facility] Work Phone: Start: 07-01-2023 Non-patient / Non-visit Dr. Carlos Downey Work Phone: [facility] Work Phone: Start: 07-01-2023 Dr. Rios winters Work Phone: [facility] Work Phone: Start: 06-30-2023 Non-patient / Non-visit Dr. Carlos Downey Work Phone: [facility] Work Phone: Start: 06-30-2023 Dr. Rios winters Work Phone: [facility] Work Phone: Start: 06-30-2023 End: 07-03-2023 Evaluation and management of inpatient Dr. Rios Downey [facility] Work [facility]: Start: 06-30-2023 End: 07-03-2023 Dr. Rios Downey Work Phone: [facility] Work Phone: Start: 06-30-2023 Non-patient / Non-visit Dr. Carlos Downey Work Phone: [facility] Start: 06-30-2023 Dr. Rios winters Work Phone: [facility] Start: 06-29-2023 Non-patient / Non-visit Dr. Carlos Downey Work Phone: [facility] Start: 06-29-2023 Dr. Rios Malone ins Work Phone: [facility] Start: 06-29-2023 Non-patient / Non-visit Dr. Carlos Downey Work Phone: [facility] Work Phone: Start: 06-29-2023 Dr. Rios winters Work Phone: [facility] Work Phone: Start: 06-29-2023 Evaluation and management of inpatient [facility] Work Phone: Start: 06-29-2023 observation encounter [facility] Work Phone: Start: 06-13-2023 End: 06-13-2023 ambulatory [facility] Work Phone: Start: 06-13-2023 End: 06-13-2023 Patient encounter procedure [facility] Work Phone: Start: 06-13-2023 End: 06-13-2023 Dr. Rios Downey Work Phone: [facility] Work Phone: Start: 05-26-2023 End: 05-26-2023 ambulatory [facility] Work Phone: Start: 05-26-2023 End: 05-26-2023 Patient encounter procedure [facility] Work Phone: Start: 05-26-2023 End: 05-26-2023 Dr. Rios Downey Work Phone: [facility] Work Phone: Start: 05-16-2023 End: 05-16-[address] Rios Downey Work Phone: [facility] Work Phone: Start: 05-16-2023 End: 05-16-[address] Rios Downey Work Phone: [facility] Start: 05-16-2023 End: 05-16-2023 Dr. Rios Downey Work Phone: [facility] Work Phone: Start: 05-12-2023 End: 05-17-2023 ambulatory [facility]OS DOWNEY DO Facility:B Start: 05-12-2023 End: 05-16-2023 Outreach Lab JENNIFER LU MD [facility] Start: 04-18-2023 End: 04-18-[address] Rios Downey Work Phone: [facility] Start: 04-18-2023 End: 04-18-2023 Dr. Rios Downey Work Phone: [facility] Work Phone: Start: 03-21-2023 End: 03-21-[address] Rios Downey Work Phone: [facility] Work Phone: Start: 03-21-2023 End: 03-21-[address] Rios Downey Work Phone: [facility] Start: 03-21-2023 End: 03-21-2023 Dr. Rios Downey Work Phone: [facility] Work Phone: Start: 02-21-2023 End: 02-21-[address] Rios Downey Work Phone: [facility] Work Phone: Start: 02-21-2023 End: 02-21-[address] Rios Downey Work Phone: [facility] Start: 01-31-2023 End: 01-31-[address] Jennifer Lu Work Phone: [facility] Work Phone: Start: 01-31-2023 End: 01-31-[address] Jennifer Lu Work Phone: [facility] Start: 01-31-2023 End: 01-31-[address] Jennifer Lu Work Phone: [facility] Start: 01-24-2023 End: 01-24-[address] Jennifer Lu Work Phone: [facility] Work Phone: Start: 01-24-2023 End: 01-24-[address] [facility] Start: 12-28-2022 End: 12-28-[address] Jennifer Lu Work Phone: [facility] Work Phone: Start: 12-28-2022 End: 12-28-[address] Jennifer Lu Work Phone: [facility] Start: 12-02-2022 End: 12-02-[address] Jennifer Lu Work Phone: [facility] Work Phone: Start: 12-02-2022 End: 12-02-[address] [facility] Start: 11-24-2022 End: 11-24-[address] Jennifer Lu Work Phone: [facility] Start: 11-01-2022 End: 11-01-[address] Jennifer Lu Work Phone: [facility] Work Phone: Start: 11-01-2022 End: 11-01-[address] [facility] Start: 10-07-2022 End: 10-07-[address] Jennifer Lu [facility] Start: 10-04-2022 End: 10-04-[address] [facility] Start: 09-29-2022 End: 09-29-[address] Jennifer Lu Work Phone: [facility] Work Phone: Start: 09-29-2022 End: 09-29-[address] Jennifer Lu Work Phone: [facility] Start: 09-06-2022 End: 09-06-[address] Jennifer Lu Work Phone: [facility] Work Phone: Start: 09-06-2022 End: 09-06-[address] [facility] Lu [facility] Start: 08-27-2022 End: 08-27-[address] Jennifer Lu Work Phone: [facility] Work Phone: Start: 08-27-2022 End: 08-27-[address] Jennifer Lu Work Phone: [facility] Start: 08-09-2022 End: 08-09-[address] Jennifer Lu Work Phone: [facility] Work Phone: Start: 08-09-2022 End: 08-09-[address] [facility] Start: 07-16-2022 End: 07-16-[address] Jennifer Lu Work Phone: [facility] Work Phone: Start: 07-16-2022 End: 07-16-[address] Jennifer Lu Work Phone: [facility] Start: 07-12-2022 End: 07-12-[address] [facility] Start: 07-09-2022 End: 07-09-[address] Jennifer Lu Work Phone: [facility] Start: 06-18-2022 End: 06-18-[address] Jennifer Lu Work Phone: [facility] Start: 06-16-2022 End: 06-16-[address] Jennifer Lu Work Phone: [facility] Start: 06-14-2022 End: 06-14-[address] [facility] Start: 05-18-2022 End: 05-18-[address] Jennifer Lu Work Phone: [facility] Start: 05-17-2022 End: 05-17-[address] [facility] Start: 04-16-2022 End: 04-16-[address] Jennifer Lu [facility] Start: 04-12-2022 End: 04-12-2022 [facility] Start: 03-29-2022 End: 03-29-[address] Jennifer Lu Work Phone: [facility] Start: 03-15-2022 End: 03-15-[address] Jennifer Lu Work Phone: [facility] Start: 02-15-2022 End: 02-15-[address] Jennifer Lu Work Phone: [facility] Start: 01-25-2022 End: 01-25-[address] Jennifer Lu Work Phone: [facility] Start: 01-18-2022 End: 01-18-[address] Jennifer Lu Work Phone: [facility] Start: 12-21-2021 End: 12-21-[address] Jennifer Lu Work Phone: [facility] Start: 12-07-2021 End: 12-07-[address] Jennifer Lu Work Phone: [facility] [place] [facility] Procedures Date Procedure Procedure Detail Performing Clinician Start: 04-25-2025 Serum inorganic phos phate measurement Dr. Rios Downey DO Work Phone: Start: 04-25-2025 Total iron binding capacity measurement Dr. Rios Downey DO Work Phone: Start: 04-15-[address] Rios Downey DO Work Phone: Start: 04-15-2025 Serum inorganic phos phate measurement Dr. Rios Downey DO Work Phone: Start: 04-15-2025 Total iron binding capacity measurement Dr. Rios Downey DO Work Phone: Start: 03-28-2025 Serum inorganic phos phate measurement Dr. Rios Downey DO Work Phone: Start: 03-28-2025 Total iron binding capacity measurement Dr. Rios Downey DO Work Phone: Start: 02-26-[address] Rios Downey DO Work Phone: Start: 02-26-2025 Serum inorganic phos phate measurement Dr. Rios Downey DO Work Phone: Start: 02-26-2025 Total iron binding capacity measurement Dr. Rios Downey DO Work Phone: Start: 01-29-[address] Rios Downey DO Work Phone: Start: 01-29-2025 Serum inorganic phos phate measurement Dr. Rios Downey DO Work Phone: Start: 01-29-2025 Total iron binding capacity measurement Dr. Rios Downey DO Work Phone: Start: 01-01-2025 Assay of phosphorus inorganic Dr. Rios Downey DO Work Phone: Start: 01-01-2025 Measurement of renal function Dr. Rios Downey DO Work Phone: Comment on above: GFR Calc Start: 01-01-2025 Total iron binding capacity measurement Dr. Rios Dwoney DO Work Phone: Start: 02-19-2024 SARS-CoV-2, Influenz a & RSV (PCR) Start: 02-19-2024 CT of head without contrast Start: 02-19-2024 Computed tomography of abdomen and pelvis with intravenous contrast Start: 02-19-2024 Plain chest X-ray Start: 02-15-2024 CT of abdomen and pe lvis without contrast Start: 09-16-2023 Plain chest X-ray Dr. Lorna Downey Work Phone: Start: 09-16-2023 Coronavirus COVID-[address] Rios Downey Work Phone: Start: 09-16-[address] Rios Downey Work Phone: Start: 09-16-2023 Dr. Rios Downey Work Phone: Start: 08-31-2023 CT cervical spine wi thout contrast Dr. Rios Downey Work Phone: Start: 08-31-2023 CT of head without contrast Dr. Rios Downey Work Phone: Start: 08-22-[address] Rios Downey Work Phone: Start: 08-19-2023 MRI of brain without contrast Dr. Rios Downey Work Phone: Start: 08-18-2023 Plain chest X-ray Dr. Lorna Downey Work Phone: Start: 08-18-2023 CT angiography of he ad and neck Dr. Rios Downey Work Phone: Start: 08-18-2023 End: 08-18-2023 CT of head without contrast Dr. Rios Downey Work Phone: Start: 08-17-[address] Rios Downey Work Phone: Start: 08-09-[address] Rios Downey Work Phone: Start: 08-06-2023 CT of head without contrast Dr. Rios Downey Work Phone: Start: 07-23-2023 CT of head without contrast Dr. Rios Downey Work Phone: Start: 07-22-2023 MRI of brain without contrast Dr. Rios Downey Work Phone: Start: 07-21-[address] Rios Downey Work Phone: Start: 07-20-[address] Rios Downey Work Phone: Start: 07-19-2023 Plain chest X-ray Dr. Lorna Downey Work Phone: Start: 07-08-2023 Plain chest X-ray Dr. Lorna Downey Work Phone: Start: 07-07-[address] Rios Downey Work Phone: Start: 07-06-2023 CT of head without contrast Dr. Rios Downey Work Phone: Start: 07-05-2023 Measurement of occul t blood in stool specimen using immunoassay Dr. Rios Downey Work Phone: Start: 06-29-2023 MRI of brain without contrast Dr. 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 02/24/2016CABG x 4 OAKLEY-D1, SVG-Distal LAD, SVG-Lat CX, SVG-RCA 12/15/98 Start: 02-24-2016 Coronary bypass lilliana t angiography JENNIFER LU MD History of coronary artery bypass grafting S/P CABG x 4 JENNIFER LU MD Plan of Treatment Date Care Activity Detail Author Start: 02-19-2024 [facility] Start: 02-16-2024 [facility] Start: 09-28-2023 [facility] Start: 09-28-2023 Ther proph/dx njx iv push single/1st sbst/drug [facility] Start: 09-22-2023 Patient discharge [facility] Start: 09-20-2023 Dual pressure sponta neous ventilation support [facility] Start: 09-20-2023 Consultation [facility] Start: 09-20-2023 Referral to service [facility] Start: 09-18-2023 End: 09-19-2023 [facility] Start: 09-18-2023 [facility] Start: 09-16-2023 Dual pressure sponta neous ventilation support [facility] Start: 09-16-2023 Following clinical p athway protocol [facility] Start: 09-16-2023 Application of elastic bandage [facility] Start: 09-16-2023 Assessment of risk o f venous thromboembolism [facility] Start: 09-16-2023 Care regimes management [facility] Start: 09-16-2023 Continuous pulse oximetry [facility] Start: 09-16-2023 Elevation of affected extremity [facility] Start: 09-16-2023 Fall prevention [facility] Start: 09-16-2023 Inhalation therapy procedure [facility] Start: 09-16-2023 Insertion of cathete r into peripheral vein [facility] Start: 09-16-2023 Introduction of urinary catheter [facility] Start: 09-16-2023 Measuring intake and output [facility] Start: 09-16-2023 Notification of physician [facility] Start: 09-16-2023 Oxygen therapy [facility] Start: 09-16-2023 Patient education [facility] Start: 09-16-2023 Providing care accor ding to standard [facility] Start: 09-16-2023 Provision of activity privileges [facility] Start: 09-16-2023 Referral to occupati onal therapist [facility] Start: 09-16-2023 Referral to service [facility] Start: 09-16-2023 SARS-CoV-2 [facility] Start: 09-16-2023 End: 09-16-2023 [facility] Start: 09-16-2023 Verification routine [facility] Start: 09-16-2023 Admission procedure [facility] Start: 09-16-2023 Hospital admission, emergency, from emergency room, medical nature [facility] Start: 08-22-2023 Patient discharge [facility] Start: 08-21-2023 [facility] Start: 08-19-2023 Development of care plan [facility] Start: 08-19-2023 [facility] Start: 08-18-2023 Aspiration precautions [facility] Start: 08-18-2023 Assessment of risk o f venous thromboembolism [facility] Start: 08-18-2023 Cardiac monitoring [facility] Start: 08-18-2023 Care regimes management [facility] Start: 08-18-2023 Catheterization of vein [facility] Start: 08-18-2023 Continuous pulse oximetry [facility] Start: 08-18-2023 Elevation of head of bed [facility] Start: 08-18-2023 Exercises [facility] Start: 08-18-2023 Fall prevention [facility] Start: 08-18-[address] anned interventions [facility] Start: 08-18-2023 Inhalation therapy procedure [facility] Start: 08-18-2023 Insertion of cathete r into peripheral vein [facility] Start: 08-18-2023 Introduction of urinary catheter [facility] Start: 08-18-2023 Measuring intake and output [facility] Start: 08-18-2023 Notification of physician [facility] Start: 08-18-2023 Oxygen therapy [facility] Start: 08-18-2023 Patient referral to dietitian [facility] Start: 08-18-2023 Providing care accor ding to standard [facility] Start: 08-18-2023 Provision of activity privileges [facility] Start: 08-18-2023 Referral to occupati onal therapist [facility] Start: 08-18-2023 Referral to service [facility] Start: 08-18-2023 Speech therapy assessment [facility] Start: 08-18-2023 Tobacco use cessation education [facility] Start: 08-18-2023 [facility] Start: 08-18-2023 Vital signs measurements [facility] Start: 08-18-2023 Dual pressure sponta neous ventilation support [facility] Start: 08-18-2023 Verification routine [facility] Start: 08-18-2023 Gas panel - Arterial blood [facility] Start: 08-18-2023 Admission procedure [facility] Start: 08-18-2023 Oxygen therapy [facility] Start: 08-18-2023 [facility] Start: 08-18-2023 Wound care [facility] Start: 08-18-2023 Patient discharge [facility] Start: 08-18-2023 [facility] Start: 08-14-2023 SARS-CoV-2 (COVID-19 ) Ag [Presence] in Respiratory specimen by Rapid immunoassay [facility] Start: 08-13-2023 [facility] Start: 08-12-2023 SARS-CoV-2 (COVID-19 ) Ag [Presence] in Respiratory specimen by Rapid immunoassay [facility] Start: 08-02-2023 Speech therapy management [facility] Start: 08-01-2023 Wound care [facility] Start: 08-01-2023 Blood chemistry [facility] Start: 08-01-2023 Continuous positive airway pressure ventilation treatment [facility] Start: 07-31-2023 [facility] Start: 07-29-2023 Developing a treatment plan [facility] Start: 07-29-2023 Development of care plan [facility] Start: 07-27-2023 [facility] Start: 07-25-2023 Blood chemistry [facility] Start: 07-18-2023 Blood chemistry [facility] Start: 07-12-2023 Verification routine [facility] Start: 07-08-2023 Referral to superintendent distribution [facility] Start: 07-07-2023 Wound care [facility] Start: 07-06-2023 Wound care [facility] Start: 07-04-2023 Development of care plan [facility] Start: 07-04-2023 Speech therapy management [facility] Start: 07-04-2023 Verification routine [facility] Start: 07-04-2023 Developing a treatment plan [facility] Start: 07-03-2023 End: 07-04-2023 [facility] Start: 07-03-2023 Consultation for treatment [facility] Start: 07-03-2023 Speech therapy assessment [facility] Start: 07-03-2023 Wound care [facility] Start: 07-03-2023 Seizure precautions [facility] Start: 07-03-2023 Following clinical p athway protocol [facility] Start: 07-03-2023 Oxygen therapy [facility] Start: 07-03-2023 Admission procedure [facility] Start: 07-03-2023 Measuring intake and output [facility] Start: 07-03-2023 Patient referral to dietitian [facility] Start: 07-03-2023 Referral to occupati onal therapist [facility] Start: 07-03-2023 Referral to service [facility] Start: 07-03-2023 Vital signs measurements [facility] Start: 07-03-2023 Patient discharge [facility] Start: 07-03-[facility] Start: 07-03-2023 Speech therapy assessment [facility] Start: 07-03-2023 [facility] Start: 07-01-2023 [facility] Start: 06-30-2023 Admission procedure [facility] Start: 06-30-2023 Thyroid stimulating hormone measurement [facility] Start: 06-29-2023 Ambulation without limitation [facility] Start: 06-29-2023 Assessment of risk o f venous thromboembolism [facility] Start: 06-29-2023 Cardiac monitoring [facility] Start: 06-29-2023 Catheterization of vein [facility] Start: 06-29-2023 Continuous pulse oximetry [facility] Start: 06-29-2023 Elevation of head of bed [facility] Start: 06-29-2023 Exercises [facility] Start: 06-29-[address] anned interventions [facility] Start: 06-29-2023 Insertion of cathete r into peripheral vein [facility] Start: 06-29-2023 Measuring intake and output [facility] Start: 06-29-2023 Notification of physician [facility] Start: 06-29-2023 Oxygen therapy [facility] Start: 06-29-2023 Providing care accor ding to standard [facility] Start: 06-29-2023 Referral to occupati onal therapist [facility] Start: 06-29-2023 Referral to service [facility] Start: 06-29-2023 Speech therapy assessment [facility] Start: 06-29-2023 Tobacco use cessation education [facility] Start: 06-29-2023 Following clinical p athway protocol [facility] Start: 06-29-2023 End: 06-29-2023 [facility] Start: 06-29-2023 Verification routine [facility] Start: 06-29-2023 Admission procedure [facility] Start: 06-29-2023 Gas panel - Venous blood [facility] Start: 06-29-2023 Oxygen therapy [facility] Start: 06-29-2023 [facility] Start: 01-31-2023 [facility] Anion gap measurement [facility] Anion gap measurement [facility] Anion gap measurement [facility] Bilirubin measurement, urine [facility] BUN/Creatinine ratio [facility] BUN/Creatinine ratio [facility] BUN/Creatinine ratio [facility] Calcium [Mass/volume ] in Serum or Plasma [facility] Calcium [Mass/volume ] in Serum or Plasma [facility] Calcium [Mass/volume ] in Serum or Plasma [facility] Carbon dioxide, tota l [Moles/volume] in Serum or Plasma [facility] Carbon dioxide, tota l [Moles/volume] in Serum or Plasma [facility] Carbon dioxide, tota l [Moles/volume] in Serum or Plasma [facility] Chloride [Moles/volu me] in Serum or Plasma [facility] Chloride [Moles/volu me] in Serum or Plasma [facility] Chloride [Moles/volu me] in Serum or Plasma [facility] Creatinine [Moles/vo lume] in Serum or Plasma [facility] Creatinine [Moles/vo lume] in Serum or Plasma [facility] Creatinine [Moles/vo lume] in Serum or Plasma [facility] Glucose [Mass/volume ] in Serum or Plasma [facility] Glucose [Mass/volume ] in Serum or Plasma [facility] Glucose [Mass/volume ] in Serum or Plasma [facility] Hematocrit [Volume F raction] of Blood [facility] Hematocrit [Volume F raction] of Blood [facility] Hematocrit [Volume F raction] of Blood [facility] Hemoglobin [Mass/volume] in Blood [facility] Hemoglobin [Mass/volume] in Blood [facility] Hemoglobin [Mass/volume] in Blood [facility] Hemoglobin [Presence] in Urine [facility] Leukocytes [#/volume] in Blood [facility] Leukocytes [#/volume] in Blood [facility] Leukocytes [#/volume] in Blood [facility] Magnesium [Mass/volu me] in Serum or Plasma [facility] Mean corpuscular hem oglobin concentration determination [facility] Mean corpuscular hem oglobin concentration determination [facility] Mean corpuscular hem oglobin concentration determination [facility] Mean corpuscular hem oglobin determination [facility] Mean corpuscular hem oglobin determination [facility] Mean corpuscular hem oglobin determination [facility] Measurement of keton es in urine using dipstick [facility] Measurement of renal function [facility] Measurement of renal function [facility] Measurement of renal function [facility] Microscopic urinalysis [facility] Neutrophil count [facility] Neutrophil count [facility] Neutrophil count [facility] Neutrophil percent d ifferential count [facility] Neutrophil percent d ifferential count [facility] Neutrophil percent d ifferential count [facility] Patient Education [facility] Work Phone: Patient referral [facility] Work Phone: pH of Urine [facility] Platelets [#/volume] in Blood [facility] Platelets [#/volume] in Blood [facility] Platelets [#/volume] in Blood [facility] Potassium [Moles/vol ume] in Serum or Plasma [facility] Potassium [Moles/vol ume] in Serum or Plasma [facility] Potassium [Moles/vol ume] in Serum or Plasma [facility] Red blood cell count [facility] Red blood cell count [facility] Red blood cell count [facility] Red cell distributio n width determination [facility] Red cell distributio n width determination [facility] Red cell distributio n width determination [facility] Respiratory pathogen s DNA and RNA panel - Respiratory specimen by ELIANE with probe detection [facility] [facility] Sodium [Moles/volume ] in Serum or Plasma [facility] Sodium [Moles/volume ] in Serum or Plasma [facility] Sodium [Moles/volume ] in Serum or Plasma [facility] Specific gravity of Urine [facility] Urea nitrogen [Mass/ volume] in Serum or Plasma [facility] Urea nitrogen [Mass/ volume] in Serum or Plasma [facility] Urea nitrogen [Mass/ volume] in Serum or Plasma [facility] Urinalysis, blood, qualitative [facility] Urine dipstick for glucose [facility] Urine dipstick for l eukocyte esterase [facility] Urine dipstick for nitrite [facility] Urine dipstick for protein [facility] Urine examination [facility] Urine microscopy: ep ithelial cells [facility] Urine Microscopy: white cells [facility] Urobilinogen [Presence] in Urine [facility] Immunizations Immunization Date Immunization Notes Care Provider Fa [facility] 08-31-2023 tetanus toxoid, redu steph diphtheria toxoid, and acellular pertussis vaccine, adsorbed Dr. Rios Downey Work Phone: [facility] 07-12-2023 Covid Moderna Bivale nt Booster Dr. Rios Downey Work Phone: [facility] 10-06-2022 influenza, high dose seasonal, preservative-free JENNIFER LU MD [facility] [place] 10-06-2022 Influenza, high dose seasonal Dr. Rios Downey DO Work Phone: [facility] 03-16-2022 COVID-19, mRNA, LNP- S, PF, 100 mcg or 50 mcg dose; Translations: [Moderna COVID-19 Vaccine] JENNIFER LU MD [facility] 12-03-2021 COVID-19, mRNA, LNP- S, PF, 100 mcg or 50 mcg dose; Translations: [Moderna COVID-19 Vaccine] JENNIFER LU MD [facility] 09-17-2021 influenza, high dose seasonal, preservative-free; Translations: [Fluad Quadrivalent PF ] JENNIFER LU MD [facility] 09-17-2021 Influenza, high dose seasonal Dr. Rios Downey DO Work Phone: [facility] 01-20-2021 COVID-19, mRNA, LNP- S, PF, 100 mcg or 50 mcg dose; Translations: [Moderna COVID-19 Vaccine] JENNIFER LU MD [facility] 12-25-2020 SARS-CoV-2 (COVID-19 ) mRNA-1273 vaccine JENNIFER LU MD [facility] 08-15-2020 influenza, injectabl e, quadrivalent, preservative free; Translations: [Fluarix PF Quadrivalent ] JENNIFER LU MD [facility] 08-15-2020 influenza, seasonal, injectable Dr. Rios Downey Work Phone: [facility] 09-13-2019 influenza, injectabl e, quadrivalent, preservative free; Translations: [Fluarix PF Quadrivalent ] JENNIFER LU MD [facility] 09-13-2019 influenza, seasonal, injectable Dr. Rios Downey Work Phone: [facility] 08-28-[address] Jennifer Lu Work Phone: [facility] 09-04-2018 influenza virus vacc ine, unspecified formulation JENNIFER LU MD [facility] 09-04-2018 influenza, injectabl e, quadrivalent, preservative free Dr. Rios Downey Work Phone: [facility] 09-04-2018 influenza, seasonal, injectable Dr. Rios Downey Work Phone: [facility] 09-21-2017 influenza virus vacc ine, unspecified formulation JENNIFER LU MD [facility] 09-21-2017 influenza, injectabl e, quadrivalent, preservative free Dr. Rios Downey Work Phone: [facility] 09-21-2017 influenza, seasonal, injectable Dr. Rios Downey Work Phone: [facility] 08-22-2017 influenza, injectabl e, quadrivalent, preservative free Dr. Rios Downey Work Phone: [facility] 08-22-2017 influenza, seasonal, injectable Dr. Jennifer Lu Work Phone: [facility] 08-24-[address] Jennifer Lu Work Phone: [facility] 08-24-2016 influenza virus vacc ine, unspecified formulation JENNIFER LU MD [facility] 08-24-2016 influenza, injectabl e, quadrivalent, preservative free Dr. Rios Downey Work Phone: [facility] 08-24-2016 influenza, seasonal, injectable Dr. Rios Downey Work Phone: [facility] 07-29-2016 influenza virus vacc ine, unspecified formulation JENNIFER LU MD [facility] 07-29-2016 influenza, injectabl e, quadrivalent, preservative free Dr. Rios Downey Work Phone: [facility] 07-29-2016 influenza, seasonal, injectable Dr. Rios Downey Work Phone: [facility] 10-03-2015 influenza virus vacc ine, unspecified formulation JENNIFER LU MD [facility] 10-03-2015 influenza, injectabl e, quadrivalent, preservative free Dr. Rios Downey Work Phone: [facility] 10-03-2015 influenza, seasonal, injectable Dr. Rios Downey Work Phone: [facility] 09-11-2015 influenza, injectabl e, quadrivalent, preservative free Dr. Rios Downey Work Phone: [facility] 09-11-2015 influenza, seasonal, injectable Dr. Jennifer Lu Work Phone: [facility] 03-03-2015 pneumococcal conjuga te vaccine, 13 valent JENNIFER LU MD [facility] 10-09-2014 influenza virus vacc ine, unspecified formulation JENNIFER LU MD [facility] 10-09-2014 influenza, injectabl e, quadrivalent, preservative free Dr. Rios Downey Work Phone: [facility] 10-09-2014 influenza, seasonal, injectable Dr. Rios Downey Work Phone: [facility] 09-17-2013 influenza virus vacc ine, unspecified formulation JENNIFER LU MD [facility] 09-17-2013 influenza, injectabl e, quadrivalent, preservative free Dr. Rios Downey Work Phone: [facility] 09-17-2013 influenza, seasonal, injectable Dr. Rios Downey Work Phone: [facility] 10-02-2012 pneumococcal polysaccharide vaccine, 23 collins LU MD [facility] 08-04-2011 tetanus toxoid, redu steph diphtheria toxoid, and acellular pertussis vaccine, adsorbed JENNIFER LU MD [facility] 08-28-2006 pneumococcal polysaccharide vaccine, 23 vallucy LU MD [facility] Payers Date Payer Category Payer Self-pay [id number] 2006 Medicare [id number] [facility] [id number] 2006 Unknown [id number] 1940 Unknown [id number] 2.16.8 [id number] Unknown [id number] Unknown [id number] 2.16.8 [id number] Unknown [id number] 2.16.8 40.1.017393.3.579.2.462 Unknown [id number] 2.16.8 40.1.973020.3.579.2.462 Unknown [id number] 2.16.8 40.1.142237.3.579.2.462 Unknown [id number] 2.16.8 40.1.219474.3.579.2.462 Unknown [id number] 2.16.8 40.1.448589.3.579.2.462 Unknown [id number] 2.16.8 40.1.094320.3.579.2.462 Unknown [id number] 2.16.8 40.1.683091.3.579.2.462 Unknown [id number] 2.16.8 40.1.124300.3.579.2.462 Unknown [id number] 2.16.8 40.1.794140.3.579.2.462 Unknown [id number] 2.16.8 40.1.378310.3.579.2.462 Unknown [id number] 2.16.8 40.1.452634.3.579.2.462 Unknown [id number] 2.16.8 40.1.439107.3.579.2.462 Unknown [id number] 2.16.8 40.1.069684.3.579.2.462 Unknown [id number] 2.16.8 40.1.256265.3.579.2.462 Unknown [id number] 2.16.8 40.1.242398.3.579.2.462 Unknown [id number] 2.16.8 40.1.701356.3.579.2.462 Unknown [id number] 2.16.8 40.1.212613.3.579.2.462 Unknown [id number] 2.16.8 40.1.228973.3.579.2.462 Unknown [id number] 2.16.8 40.1.476785.3.579.2.462 Unknown [id number] 2.16.8 40.1.395870.3.579.2.462 Unknown [id number] 2.16.8 40.1.665583.3.579.2.462 Social History Date Type Detail Facility Start: 12-07-2021 End: 02-19-2024 Tobacco smoking status NHIS Unknown if ever smoked [facility] Start: 01-31-2021 None [facility] Start: 01-31-2021 Spouse/ Signif icant Other [facility] Start: 02-19-2020 Non-smoker [facility] Start: 1940 Sex Assigned At Male W [facility] Start: 06-15-2019 End: 10-15-2024 Tobacco smoking status Ex-smoker (finding) [facility] Comment on above: no smoke exposure Start: 06-29-2023 Cigarettes [facility] Start: 02-27-2025 Sex Male (finding) [facility] Goals Date Patient Goal Desired Activity /State Functional Status Date Assessment Result Facility 09-22-2023 Functional status Ambulates;Chair [facility] Work Phone: 08-22-2023 Functional status With Assist of 1 [facility] Work Phone: 08-21-2023 Functional status Dangle Feet;Chair [facility] Work Phone: 08-20-2023 Functional status Standard [facility] Work Phone: 08-18-2023 Functional status Ambulates [facility] Work Phone: 08-11-2023 Functional status Bedrest [facility] Work Phone: 08-10-2023 Functional status Tolerates Activity Fair [facility] Work Phone: 07-27-2023 Functional status Bedrest [facility] Work Phone: 07-26-2023 Functional status Assistive Radha pablito Rolling [facility] Work Phone: 07-11-2023 Functional status Chair [facility] Work Phone: 07-03-2023 Functional status Bedrest [facility] Work Phone: 07-03-2023 Functional status Standard [facility] Work Phone: Mental Status Date Assessment Result Facility 02-19-2024 Cognitive function Level Of Cons ciousness Awake;Alert;Appropriate;Follow s Commands [facility] Work Phone: 11-23-2023 Cognitive function Voice/Name [facility] Work Phone: 09-28-2023 Cognitive function Voice/Name [facility] Work Phone: 09-22-2023 Cognitive function Voice/Name [facility] Work Phone: 08-22-2023 Cognitive function Voice/Name [facility] Work Phone: 08-18-2023 Cognitive function Touch/Shaking [facility] Work Phone: 08-17-2023 Cognitive function Touch/Shaking [facility] Work Phone: 08-10-2023 Cognitive function Voice/Name [facility] Work Phone: 08-09-2023 Cognitive function Cooperative [facility] Work Phone: 07-27-2023 Cognitive function Voice/Name;Touch/Shaki ng [facility] Work Phone: 07-27-2023 Cognitive function Anxious;Restless;Fatig ued [facility] Work Phone: 07-10-2023 Cognitive function Voice/Name [facility] Work Phone: 07-03-2023 Cognitive function Voice/Name [facility] Work Phone: 06-29-2023 Cognitive function Voice/Name [facility] Work Phone: 07-12-2022 Cognitive function Awake;Alert;A ppropriate;Follow s Commands [facility] Work Phone: 03-15-2022 Cognitive function Awake;Alert;A ppropriate;Follow s Commands [facility] Work Phone: Clinical Notes 02-24-2016 to 03-14-2025 Note Date & Type Note Facility 03-14-2025 Evaluation note Diagnosis Onset Date Resolution 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 Rios Downey DO Status:ADM IN Location: [place] [address] Providers Date of Admission: 09/16/23 Primary Care Physician: Dr. Rios Downey DO Consultations 09/20/23 11:34 Consult: Policy Change Clerks Supervisor / Pulmonary Medicine Routine Consulting Provider: [facility] Reason for Consult: Continued elevated O2 requirement EMERGENT Consult: No MD Notified: Yes Date Notified: 09/20/23 Time Notified: 11:34 Method of Notification: Text Reason For Visit: HYPOXIA, ACUTE ON CHRONIC, CHF EXAC Diagnosis Discharge Diagnosis (1) Acute exacerbation of CHF (congestive heart failure): Status: Chronic Code(s): I50.9 - Heart failure, unspecified Qualifiers: Heart failure type: combined systolic and diastolic Qualified Code(s): I50.43 - Acute on chronic combined systolic (congestive) and diastolic (congestive) heart failure (2) CKD (chronic kidney disease) stage 4, GFR 15-29 ml/min: Status: Chronic Code(s): N18.4 - Chronic kidney disease, stage 4 (severe) (3) Chronic respiratory failure: Status: Chronic Code(s): J96.10 - Chronic respiratory failure, unspecified whether with hypoxia or hypercapnia Qualifiers: Respiratory failure complication: hypoxia Qualified Code(s): J96.11 - Chronic respiratory failure with hypoxia (4) Aortic stenosis: Status: Acute Code(s): I35.0 - Nonrheumatic aortic (valve) stenosis Qualifiers: Cardiac valve disease etiology: nonrheumatic Qualified Code(s): I35.0 - Nonrheumatic aortic (valve) stenosis Plan 1. Acute on chronic hypoxic respiratory failure, mildly decompensated combined heart failure ?Most recent echo on 06/29/2023 with normal LV size, EF 40%, PASP 44 mmHg, otherwise unremarkable. BNP 179 on admit, appears to be around his baseline. ?Ambulatory pulse ox demonstrated need for 7 L with 3 L at rest. ? Appreciate pulmonology's assistance ? Continue with diuresis ? Monitor his renal function 2. Debility Secondary to age and significant comorbidities. Notably was just discharged from SNF on morning of 09/16, had been there since previous discharge on 08/22. ? PT/OT/case management following. Discussed at length with patient's granddaughter outside room on 09/18. Patient lives with granddaughter, was fairly functional at baseline prior to previous hospitalization from 08/18 to 08/22. Granddaughter then states that patient received poor care at rehab facility. She would like for patient to go home with home health care on discharge but recognizes that patient is weaker than his baseline. She states that patient has home health care set up already, and actually has palliative care coming in to see the patient in the home this week. ? There is no interest in SNF so when stable will discharge home, both him and granddaughter recognize some of the safety issues involved with this decision 3. Delirium, concern for underlying dementia Suspect hospital delirium. Patient alert and oriented x3 on 09/17, then delirious on morning of 09/18 and not answering questions appropriately. Wore BiPAP overnight on 09/17, no concern for hypercarbia. No other significant lab abnormalities. Patient's granddaughter states that patient experienced this type of delirium on previous hospitalization as well. ?He is on olanzapine, will discontinue Seroquel. Can give IV Haldol as needed if patient has significant hyperactive delirium. ? Appears to have resolved and granddaughter seeking to remove guardianship Chronic medical conditions: ? Morbid obesity: BMI 43. Encouraged lifestyle modifications. ? Seizure disorder: Continue home Keppra. ? CKD stage IV: Admission BUN/creatinine of 53/2.12, at baseline. Monitor dailyBMP. ? Paroxysmal A-fib: Continue home Eliquis. ? COPD with chronic hypoxic respiratory failure: Continue home inhalers. ? CAD s/p CABG: Continue home aspirin, statin. ? Type 2 diabetes: Holding home oral regimen, sliding scale insulin while inpatient. ? Anxiety/depression: Continue home sertraline and olanzapine. DVT: Eliquis Medications at Discharge Home Medications aspirin 81 mg tablet,delayed release 81 mg PO DAILY HEART HEALTH 07/11/16 multivitamin 1 ea PO DAILY HEALTH MAINTENANCE 07/11/16 insulin regular human 100 unit/mL injection solution 12 unit subcut BID [id number]/27/16 cholecalciferol (vitamin D3) 25 mcg (1,000 unit) tablet 25 mcg PO DAILY SUPPLEMENT 10/26/16 sertraline 25 mg tablet 25 mg PO DAILY DEPRESSION 01/10/18 famotidine 20 mg tablet 20 mg PO DAILY GERD 11/13/19 olanzapine 2.5 mg tablet 2.5 mg PO QHS DEPRESSION 11/13/19 allopurinol 300 mg tablet 300 mg PO DAILY GOUT 12/07/21 apixaban 2.5 mg tablet (Eliquis) 2.5 mg PO BID BLOOD THINNER 10/07/22 calcitriol 0.25 mcg capsule 0.5 mcg PO MOWEFR SUPPLEMENT 10/07/22 isosorbide mononitrate 30 mg tablet,extended release 24 hr 30 mg PO DAILY HEART #90 tabs 02/01/23 potassium chloride 20 mEq tablet,extended release 20 meq PO DAILY potassium #1 TAB 07/03/23 psyllium husk (aspartame) 3 gram oral powder packet (Daily Fiber (psyllium-aspartame)) 1 packet PO BID constipation #0 ea 07/03/23 levetiracetam 100 mg/mL oral solution (Keppra) 500 mg PO BID 08/18/23 menthol 0.44 %-zinc oxide 20.6 % topical ointment (Calmoseptine) 1 applic topical BID 08/18/23 nystatin 100,000 unit/gram topical powder (Nystop) 1 applic topical BID 08/18/23 sennosides 8.6 mg-docusate sodium 50 mg tablet (2-in-1 Laxative) 1 tab-cap PO BID 08/18/23 amlodipine 2.5 mg tablet 2.5 mg PO DAILY 09/16/23 furosemide 20 mg tablet 20 mg PO DAILY 30 days #30 tabs 09/22/23 insulin NPH isoph U-100 human 100 unit/mL subcutaneous suspension 20 unit (0.2 mL) subcut BID DIABETES #1 mL 09/22/23 Hospital Course Operations None Procedures None Summary of Care Provided Minutes Spent on Discharge: 42 Hospital Course: Per HPI: The patient is an 83 y/o M w/ PMHx: CKD stage IV, HTN, HLD, Anxiety andDepression, Morbid Obesity, Seizure disorder, PAF, GERD, Combined Chronic CHF, AUTUMN on BIPAP, COPD with Chronic Hypoxic Respiratory Failure (4L NC), Former tobacco use, CAD s/p CABG x 4, Valvular Heart Disease s/p AVR, Diabetes mellitustype II, Anxiety and Depression, recent admission 08/18/23 with confusion/aphasia/L sided facial droop discharged on 08/22/23 with CVA ruled out with recommendation for ongoing outpatient evaluation for dementia who now re-presents to the [facility] ED on 09/16/23 with history of discharge from SNF today specifically [facility] [place] with reportedly transition to home and at home patientnoted to be hypoxic down to 77% with increased work of breathing, accessory muscle usage prompting ED transition. Even following transitioning back to bed in the ED he still notes having some mild dyspnea since ambulatory trial. He isunsure if he is weight gain or increased swelling. He does admit to orthopnea. Work-up in the ED included T95.5 Temporally, heart rate 56, BP 121/79, respiratory rate 18, 96% on 4 L increasing to 5 L chronically on 4L NC w/ ED ambulatory trial with 94%, sat down and dropped down into the 82/83%, increased to 5L., CBC with WBC 7.1, hemoglobin 10.1, MCV 101.9, platelet 130 without marked shift, BMP with chloride 112, BUN/creatinine 53/2.12, glucose 131, troponin 41, BNP 179, chest x-ray with cardiomegaly without any acute cardiopulmonary findings otherwise, EKG rate controlled atrial fibrillation without acute evidence of ischemia. Hospital Course: 1. Acute on chronic hypoxic respiratory failure secondary to acute on chronic combined CHF/CAD status post CABG/HTN/HLD/paroxysmal A-fib?83-year-old male presented to the hospital with increased shortness of breath. He does have chronic hypoxic respiratory failure secondary to COPD, he is wears 2 L of oxygenat rest and 4 L with ambulation. He was placed on IV Lasix for diuresis and he did have some improvement however he started developing some increased renal failure as this was discontinued however his shortness of breath worsened and at1 point was requiring 7 to 8 L nasal cannula with ambulation. Pulmonology was consulted and recommended to restart IV diuresis which we did at twice daily dosing and he did steadily improve though his kidney function worsened to 2.75 creatinine. Today he requires 4 L nasal cannula at rest and 5 L with ambulationI discussed with the daughter at length about advance care planning for about 25minutes given prognosis and possible outcomes. She requested that he still be discharged home with home health and palliative care as she does not want to send him back to a custodial as she thinks that the custodial made his condition worse. I discussed with him the plan for possible discharge today andthey expressed understanding of the risk and benefits of going home today would like to go home today. We will plan on transitioning his torsemide back to Lasix because she felt that that is part of the reason that that he worsen. We will continue with his p.o. potassium with outpatient follow-up. 2. On admission he did appear to have some delirium which has resolved. She became his guardian secondary to a determination that he was incompetent howevershe feels that he has regained his confidence and is looking to remove her guardianship. 3. Seizure disorder, CKD stage IV, COPD with chronic hypoxic respiratory failure, type 2 diabetes, anxiety, depression are all chronic medical conditionswhich complicate his care. His home medications were continued where appropriate Physical Exam Narrative General: Alert, Oriented x3, Cooperative, No apparent distress HEENT: Atraumatic, PERRLA, EOMI, Normocephalic Oral: Moist Mucosa Neck: Supple, No JVD Lungs: Diminished, Normal air movement, No rhonchi, No wheeze, No rales Cardiovascular: Regular rate, Regular Rhythm, Normal S1, Normal S2, No murmurs Abdomen: Soft, Non Tender, Non-Distended, No Hepato-splenomegaly Extremities: Edema, Capillary Refill Less than 3 Seconds Skin: No rashes, No breakdown Musculoskeletal: No Tenderness to Palpation of Joints or Extremities Neurological: Moves all extremities, Sensory exam intact to light touch and pain Psych/Mental Status: Normal Affect, Appropriate Weight / BMI Weight Weight: 250 lb 7.122 oz Body Mass Index (BMI) 41.6 ABG / Lab / Microbiology Data 09/22/23 06:39 09/22/23 06:39 Laboratory: Laboratory Results - last 24 hr 09/21/23 16:40: POC Glucose 156 H 09/21/23 22:09: POC Glucose 158 H 09/22/23 06:39: WBC 7.7, RBC 3.03 L, Hgb 9.5 L, Hct 30.3 L, MCV 100.0 H, MCH 31.4, MCHC 31.4 L, RDW Std Deviation 57.0 H, RDW Coeff of Yeny 15.6 H, Plt Count 132 L, MPV 11.5, Immature Gran % (Auto) 0.300, Neut % (Auto) 68.7, Lymph % (Auto) 18.8 L, Dyer % (Auto) 8.1, Eos % (Auto) 3.7, Baso % (Auto) 0.4, Absolute Neuts (auto) 5.3, Absolute Lymphs (auto) 1.44, Nucleated RBC % 0, Sodium 137, Potassium 4.4, Chloride 105, Carbon Dioxide 27.0, Anion Gap 5, BUN 73 H, Creatinine 2.75 H, Estim Creat Clear Calc 18.02, Est GFR (MDRD) Af Amer 29 L, Est GFR (MDRD) Non-Af 24 L, BUN/Creatinine Ratio 26.5 H, Glucose 129 H, Calcium 9.0 09/22/23 13:22: POC Glucose 197 H Microbiology: Microbiology 09/16/23 20:00 Mucosa - Nasopharyngeal Coronavirus COVID-19 PCR - Final 09/16/23 20:00 Mucosa - Nasopharyngeal Respiratory Panel (PCR) - Final D/C Instructions Discharge Diet: Low fat / Low cholesterol, 6 Cup Fluid Restriction and Carb Control Diet Call your doctor if you observe: Fever of 101 or Higher, Shortness of breath, Dizziness, Fainting spells, Swelling in the ankles, Chest pain and Increased palpitations (irregular heartbeat) Meaningful Use Info Meaningful Use Diagnoses (Choose all that apply): None applicable Discharge Plan Admission Admit Date/Time: 09/16/23 18:12 Attending Provider: Eladio Lucas Primary Care Provider: Rios Downey Consulting Providers: Patricia Alcantara; Woody Brunson; Aleksander Hilliard; Yaakov Love; Josh Cline; Michelle Peters; Otto Jerry; Tal Ashraf; Gosia Saenz IP/MOSAIC TECHNICIAN Instructions Additional Instructions / Restrictions: Follow-up your PCP in 3 to 5 days to check your renal function. Discharge Orders/Prescriptions Prescriptions: New furosemide 20 mg Tablet 20 mg PO DAILY 30 Days Qty: 30 0RF Continued famotidine 20 mg tablet 20 mg PO DAILY olanzapine 2.5 mg tablet 2.5 mg PO QHS Eliquis 2.5 mg tablet 2.5 mg PO BID aspirin 81 MG tablet,delayed release (DR/EC) 81 mg PO DAILY Patient Comments: multivitamin 1 EACH tablet 1 ea PO DAILY insulin regular human 100 UNIT/ML solution 12 unit SC BID Patient Comments: afternoon and night cholecalciferol (vitamin D3) 1,000 UNIT tablet 25 mcg PO DAILY sertraline 25 MG tablet 25 mg PO DAILY calcitriol 0.25 mcg capsule 0.5 mcg PO MOWEFR allopurinol 300 mg tablet 300 mg PO DAILY amlodipine 2.5 mg tablet 2.5 mg PO DAILY insulin NPH isoph U-100 human 100 unit/mL suspension 20 unit SC BID Qty: 1 0RF Rx Instructions: 5 UNITS IN THE MORNING 5 UNITS AT BEDTIME Daily Fiber (psyllium-aspart) 3 gram Powder In Packet 1 packet PO BID Qty: 0 0RF potassium chloride 20 mEq tablet extended release 20 meq PO DAILY Qty: 1 0RF menthol-zinc oxide [Calmoseptine] 0.44-20.6 % ointment 1 applic topical BID nystatin [Nystop] 100,000 unit/gram powder 1 applic topical BID sennosides-docusate sodium [2-in-1 Laxative] 8.6-50 mg tablet 1 tab-cap PO BID levetiracetam [Keppra] 100 mg/mL solution 500 mg PO BID isosorbide mononitrate 30 mg tablet extended release 24 hr 30 mg PO DAILY Qty: 90 4RF Discontinued torsemide 20 mg tablet 20 mg PO DAILY Referrals / Follow Up: Rios Downey DO [Primary Care Provider] - 09/27/23 3:30 pm Disposition Disposition (needs filled in before D/C Order can be placed): Home Health Service Charges/Coding Visit Charges Inpatient E&M: 29976 Disch Hosp >30min Procedures Hospitalists Procedures: 49973 Advncd Care Plan 30 Min 09/22/23 1421 <Electronically signed by Eladio Lucas MD> Cosigner Signature (if applicable): CC: Dr. Eladio Lucas MD; Dr. Rios Downey DO~ Signed [facility] Work Phone: 1(756) 175-705110-26-2023 Progress note Author Yaakov Love [facility] September 22, 2023 1:57pm Note Date/Time September 22, 2023 9 :27am [facility] System Medical Records Department [address] [place] [address] Progress Note - Policy Change Clerks Supervisor 09/22/23 0924 MR#: [id number] Acct: [id number] Name: JODIE CARDENAS Rep #:[id number] : 1940 83 From: Yaakov Love MD PCP: Dr. Rios Downey DO Status:ADM IN Location: [place] [address] Assessment & Plan Assessment/Plan (1) Acute exacerbation of CHF (congestive heart failure): QUALIFIERS: Heart failure type: combined systolic and diastolic Qualified Code(s): I50.43 - Acute on chronic combined systolic (congestive) and diastolic (congestive) heart failure (2) CKD (chronic kidney disease) stage 4, GFR 15-29 ml/min: (3) Chronic respiratory failure: QUALIFIERS: Respiratory failure complication: hypoxia Qualified Code(s): J96.11 - Chronic respiratory failure with hypoxia (4) Aortic stenosis: QUALIFIERS: Cardiac valve disease etiology: nonrheumatic Qualified Code(s): I35.0 - Nonrheumatic aortic (valve) stenosis PLAN: Plan RECOMMENDATIONS: 1. Transition to baseline diuretic therapy 2. Obtain walking oximetry 3. Continue BiPAP at night with sleep 4. Walking oximetry prior to discharge 5. Would not recommend steroids or antibiotics at this time 6. Consider arranging for patient to bring in his home BiPAP for tonight to ensure that it is adequate 7. Possible discharge later today IMPRESSIONS: 1. Acute on chronic hypoxic respiratory failure secondary to CHF Patient with multiple aggravating factors including aortic stenosis, combined CHF and pulmonary hypertension. Patient also still noted to be approximately 10 pounds above dry weight. Agree with diuretics moving forward. Patient is not having any purulent sputum or other indication for acute infectious etiology. Would not recommend steroids or antibiotics at this time. Check walking oximetry with possible discharge pending response. Patient will also benefit from using BiPAP with sleep and rescue during the day. Could consider transitioning to patient's home BiPAP prior to discharge to ensure thiswill be sufficient on discharge. Patient will have a relatively narrow therapeutic window on fluid status. Patient can follow-up in pulmonary as previously scheduled 2. Debility/delirium v dementia/morbid obesity/seizure disorder/CKD stage IV/paroxysmal A-fib/CAD status post CABG/type 2 diabetes Complicates care, management, recovery and prognosis. Patient does have most of his home medications going well at this time. Haldol as needed would berecommended over barbiturates if necessary. Patient does not appear to have significant electrolyte abnormalities to contribute to delirium. Blood sugars are well controlled at this time Subjective Subjective Patient did well overnight. Patient reports subjective improvement in overall condition and was actually in his bedside chair eating breakfast on my arrival. Patient not reporting any pain. Patient reporting less dyspnea on exertion compared to previous. Objective Data Objective Data Vital Signs: Vital Signs Temp Pulse Resp BP Pulse Ox O2 Del Method O2 Flow Rate 36.4 C L 68 18 109/50 L 95 Nasal Cannula 4 09/22/23 02:51 09/22/23 02:51 09/22/23 02:51 09/22/23 02:51 09/22/23 02:51 09/22/23 02:51 09/22/23 02:51 FiO2 30 09/20/23 22:50 Oxygen Flow Rate (L/min) [ 6 AMBULATING with Oxygen #3] Oxygen Flow Rate (L/min) [ 4 AMBULATING with Oxygen #2] Oxygen Flow Rate (L/min) [ 3 AMBULATING with Oxygen #1] Oxygen Flow Rate (L/min) [At 3 REST with Oxygen] Oxygen Flow Rate (L/min) 4 Oxygen Delivery Method Nasal Cannula Weight: 113.6 kg Body Mass Index (BMI) 41.6 Intake & Output: Intake and Output for Last 24 Hours 09/20/23 09/21/23 09/22/23 23:59 23:59 23:59 Intake Total 0 / 0 750 / 750 Output Total 1850 / 1850 1200 / 1200 200 / 200 Balance -1850 / -1850 -450 / -450 -200 / -200 Lab / Micro Data Attestation: I reviewed the patient's lab results. 09/22/23 06:39 09/22/23 06:39 Labs: Laboratory Results - last 24 hr 09/21/23 11:35: POC Glucose 137 H 09/21/23 16:40: POC Glucose 156 H 09/21/23 22:09: POC Glucose 158 H 09/22/23 06:39: WBC 7.7, RBC 3.03 L, Hgb 9.5 L, Hct 30.3 L, MCV 100.0 H, MCH 31.4, MCHC 31.4 L, RDW Std Deviation 57.0 H, RDW Coeff of Yeny 15.6 H, Plt Count 132 L, MPV 11.5, Immature Gran % (Auto) 0.300, Neut % (Auto) 68.7, Lymph % (Auto) 18.8 L, Dyer % (Auto) 8.1, Eos % (Auto) 3.7, Baso % (Auto) 0.4, Absolute Neuts (auto) 5.3, Absolute Lymphs (auto) 1.44, Nucleated RBC % 0, Sodium 137, Potassium 4.4, Chloride 105, Carbon Dioxide 27.0, Anion Gap 5, BUN 73 H, Creatinine 2.75 H, Estim Creat Clear Calc 18.02, Est GFR (MDRD) Af Amer 29 L, Est GFR (MDRD) Non-Af 24 L, BUN/Creatinine Ratio 26.5 H, Glucose 129 H, Calcium 9.0 Micro: Microbiology 09/16/23 20:00 Mucosa - Nasopharyngeal Coronavirus COVID-19 PCR - Final 09/16/23 20:00 Mucosa - Nasopharyngeal Respiratory Panel (PCR) - Final Physical Exam Const alert Constitutional Narrative: Patient sitting in chair eating breakfast comfortably HEENT normocephalic, head/scalp atraumatic, hearing grossly normal bilaterally, nasal mucous membranes and turbinates normal and moist oral mucous membranes Eyes PERRL, EOMs intact bilaterally and conjunctivae normal Neck full ROM, no lymphadenopathy and supple Lymph Lymphatic: no lymphadenopathy noted Resp Auscultation: rales bilateral (Continues to improve) base and diminished lung sounds; Negative for rhonchi or wheezes Cardio regular rate, regular rhythm, S1 normal heart sound, S2 normal heart sound and peripheral pulses 2+ throughout Heart Sounds: murmur systolic II/ soft early right sternal border GI normal to inspection, nondistended, normoactive bowel sounds, soft to palpation,non-tender and non-distended Back/Spine normal ROM Extremity normal to inspection and full ROM General Extremity: edema bilateral (1+ bilateral. Dionna bandage in place.) lower extremity Skin no rashes or lesions noted Neuro moves all extremities Psych mental status grossly normal Charges/Coding Visit Charges Inpatient E&M: 30271 Subs Hosp L2 09/22/23 1357 <Electronically signed by Yaakov Love MD> Cosigner Signature (if applicable): CC: ~ Signed [facility] Work Phone: 1(792) 625-131410-26-2023 Discharge summary Author Eladio Lucas [facility] September 22, 2023 1:18pm Note Date/Time September 22, 2023 1 :12pm [facility] Health System Medical Records Department [address] [place] [address] Instructions for Home/Discharge Instructions 09/22/23 1311 MR#: [id number] Acct: [id number] Name: JODIE CARDENAS Rep #:[id number] : 1940 83 From: Eladio ramirez MD PCP: Dr. Rios Downey, DO Status:ADM IN Discharge Instructions Diet Discharge Diet: Low fat / Low cholesterol, 6 Cup Fluid Restriction and Carb Control Diet Activity Discharge Activity: Return to Normal Activity Dressing / Incision Call your doctor if you observe: Fever of 101 or Higher, Shortness of breath, Dizziness, Fainting spells, Swelling in the ankles, Chest pain and Increased palpitations (irregular heartbeat) Follow Up Care Test Results: Test results from this visit will be discussed in further detail at your follow- up appointment, if applicable. Discharge Plan Admission Admit Date/Time: 09/16/23 18:12 Attending Provider: Eladio Lucas Primary Care Provider: Rios Downey Consulting Providers: Patricia Alcantara; Woody Brunson; Aleksander Hilliard; Yaakov Love; Josh Cline; Michelle Peters; Otto Jerry; Tal Ashraf; Gosia Saenz IP/MOSAIC TECHNICIAN Instructions Additional Instructions / Restrictions: Follow-up your PCP in 3 to 5 days to check your renal function. Discharge Orders/Prescriptions Prescriptions: New furosemide 20 mg Tablet 20 mg PO DAILY 30 Days Qty: 30 0RF Continued famotidine 20 mg tablet 20 mg PO DAILY olanzapine 2.5 mg tablet 2.5 mg PO QHS Eliquis 2.5 mg tablet 2.5 mg PO BID aspirin 81 MG tablet,delayed release (DR/EC) 81 mg PO DAILY Patient Comments: multivitamin 1 EACH tablet 1 ea PO DAILY insulin regular human 100 UNIT/ML solution 12 unit SC BID Patient Comments: afternoon and night cholecalciferol (vitamin D3) 1,000 UNIT tablet 25 mcg PO DAILY sertraline 25 MG tablet 25 mg PO DAILY calcitriol 0.25 mcg capsule 0.5 mcg PO MOWEFR allopurinol 300 mg tablet 300 mg PO DAILY amlodipine 2.5 mg tablet 2.5 mg PO DAILY insulin NPH isoph U-100 human 100 unit/mL suspension 20 unit SC BID Qty: 1 0RF Rx Instructions: 5 UNITS IN THE MORNING 5 UNITS AT BEDTIME Daily Fiber (psyllium-aspart) 3 gram Powder In Packet 1 packet PO BID Qty: 0 0RF potassium chloride 20 mEq tablet extended release 20 meq PO DAILY Qty: 1 0RF menthol-zinc oxide [Calmoseptine] 0.44-20.6 % ointment 1 applic topical BID nystatin [Nystop] 100,000 unit/gram powder 1 applic topical BID sennosides-docusate sodium [2-in-1 Laxative] 8.6-50 mg tablet 1 tab-cap PO BID levetiracetam [Keppra] 100 mg/mL solution 500 mg PO BID isosorbide mononitrate 30 mg tablet extended release 24 hr 30 mg PO DAILY Qty: 90 4RF Discontinued torsemide 20 mg tablet 20 mg PO DAILY Referrals / Follow Up: Rios Downey DO [Primary Care Provider] - 09/27/23 3:30 pm Disposition Disposition (needs filled in before D/C Order can be placed): Home Health Service 09/22/23 2745<Electronically signed by Eladio Lucas MD>Eladio Lucas MD CC: IAN Saenz; Dr. Aleksander Hilliard DO; Dr. Patricia Alcantara MD; Dr. Yaakov Love MD; Dr. Josh Cline DO; Dr. Michelle Peters MD; Dr. Otto Jerry MD; Dr. Woody Brunson DO; Dr. Rios Downey DO; Dr. Tal Ashraf MD ~ Signed [facility] Work Phone: [phone]) 694-173710-25-2023 Progress note Author Yaakov Love [facility] September 21, 2023 1:05pm Note Date/Time September 21, 2023 8 :03am [facility] Medical Records Department [address] [place] [address] Progress Note - Policy Change Clerks Supervisor 09/21/23 0801 MR#: [id number] Acct: [id number] Name: JODIE CARDENAS Rep #:[id number] : 1940 83 From: Yaakov Love MD PCP: Dr. Rios Downey, DO Status:ADM IN Location: [place] [address] Assessment & Plan Assessment/Plan (1) Acute exacerbation of CHF (congestive heart failure): QUALIFIERS: Heart failure type: combined systolic and diastolic Qualified Code(s): I50.43 - Acute on chronic combined systolic (congestive) and diastolic (congestive) heart failure (2) CKD (chronic kidney disease) stage 4, GFR 15-29 ml/min: (3) Chronic respiratory failure: QUALIFIERS: Respiratory failure complication: hypoxia Qualified Code(s): J96.11 - Chronic respiratory failure with hypoxia (4) Aortic stenosis: QUALIFIERS: Cardiac valve disease etiology: nonrheumatic Qualified Code(s): I35.0 - Nonrheumatic aortic (valve) stenosis PLAN: Plan RECOMMENDATIONS: 1. Continue diuresis at increased rate for another 24 hours 2. Possible walking oximetry tomorrow 3. Continue BiPAP at night with sleep 4. Walking oximetry prior to discharge 5. Would not recommend steroids or antibiotics at this time 6. Consider arranging for patient to bring in his home BiPAP for tonight to ensure that it is adequate IMPRESSIONS: 1. Acute on chronic hypoxic respiratory failure secondary to CHF Patient with multiple aggravating factors including aortic stenosis, combined CHF and pulmonary hypertension. Patient also still noted to be approximately 10 pounds above dry weight. Agree with diuretics moving forward. Patient is not having any purulent sputum or other indication for acute infectious etiology. Would not recommend steroids or antibiotics at this time. Likely check walking oximetry tomorrow with possible discharge pending response. Patient will also benefit from using BiPAP with sleep and rescue during the day. Could consider transitioning to patient's home BiPAP prior to discharge toensure this will be sufficient on discharge. Patient will have a relatively narrow therapeutic window on fluid status. 2. Debility/delirium v dementia/morbid obesity/seizure disorder/CKD stage IV/paroxysmal A-fib/CAD status post CABG/type 2 diabetes Complicates care, management, recovery and prognosis. Patient does have most of his home medications going well at this time. Haldol as needed would berecommended over barbiturates if necessary. Patient does not appear to have significant electrolyte abnormalities to contribute to delirium. Blood sugars are well controlled at this time Subjective Subjective Patient did okay overnight. Patient did feel that he was able to get to the bedeasier last night than previous. Patient did not wear his BiPAP overnight per documentation, but the patient states that he did have it on for a brief period of time. Patient did complain about having to get up overnight for urination, but is not currently reporting any chest pain, abdominal pain, nausea or vomiting. Objective Data Objective Data Vital Signs: Vital Signs Temp Pulse Resp BP Pulse Ox O2 Del Method O2 Flow Rate 36.5 C L 53 L 24 H 136/57 H 95 Nasal Cannula 3.5 09/21/23 02:51 09/21/23 06:49 09/21/23 06:49 09/21/23 02:51 09/21/23 06:49 09/21/23 06:49 09/21/23 06:49 FiO2 30 09/20/23 22:50 Oxygen Flow Rate (L/min) [ 6 AMBULATING with Oxygen #3] Oxygen Flow Rate (L/min) [ 5 AMBULATING with Oxygen #2] Oxygen Flow Rate (L/min) [ 4 AMBULATING with Oxygen #1] Oxygen Flow Rate (L/min) [At 2 REST with Oxygen] Oxygen Flow Rate (L/min) 3.5 Oxygen Delivery Method Nasal Cannula Weight: 114.3 kg Body Mass Index (BMI) 41.9 Intake & Output: Intake and Output for Last 24 Hours 09/19/23 09/20/23 09/21/23 23:59 23:59 23:59 Intake Total 340 / 340 0 / 0 Output Total 1550 / 1650 1850 / 1850 400 / 400 Balance -1210 / -1310 -1850 / -1850 -400 / -400 Lab / Micro Data Attestation: I reviewed the patient's lab results. 09/17/23 06:40 09/21/23 04:08 Labs: Laboratory Results - last 24 hr 09/20/23 08:35: POC Glucose 95 09/20/23 12:06: POC Glucose 179 H 09/20/23 17:14: POC Glucose 157 H 09/20/23 21:06: POC Glucose 186 H 09/21/23 04:08: Sodium 138, Potassium 4.6, Chloride 107, Carbon Dioxide 25.0, Anion Gap 6, BUN 67 H, Creatinine 2.73 H, Estim Creat Clear Calc 18.15, Est GFR (MDRD) Af Amer 29 L, Est GFR (MDRD) Non-Af 24 L, BUN/Creatinine Ratio 24.5 H, Glucose 127 H, Calcium 8.9 Micro: Microbiology 09/16/23 20:00 Mucosa - Nasopharyngeal Coronavirus COVID-19 PCR - Final 09/16/23 20:00 Mucosa - Nasopharyngeal Respiratory Panel (PCR) - Final Physical Exam Const alert Constitutional Narrative: Patient resting quietly on my initial presentation. Somewhat less garbled speech. HEENT normocephalic, head/scalp atraumatic, hearing grossly normal bilaterally, nasal mucous membranes and turbinates normal and moist oral mucous membranes Eyes PERRL, EOMs intact bilaterally and conjunctivae normal Neck full ROM, no lymphadenopathy and supple Lymph Lymphatic: no lymphadenopathy noted Resp Auscultation: rales bilateral base and diminished lung sounds; Negative for rhonchi or wheezes Cardio regular rate, regular rhythm, S1 normal heart sound, S2 normal heart sound and peripheral pulses 2+ throughout Heart Sounds: murmur systolic II/ soft early right sternal border GI normal to inspection, nondistended, normoactive bowel sounds, soft to palpation,non-tender and non-distended Back/Spine normal ROM Extremity normal to inspection and full ROM General Extremity: edema bilateral (2+ bilateral. Dionna bandage in place.) lower extremity Skin no rashes or lesions noted Neuro moves all extremities Psych mental status grossly normal Charges/Coding Visit Charges Inpatient E&M: 97761 Subs Hosp L2 09/21/23 1305 <Electronically signed by Yaakov Love MD> Cosigner Signature (if applicable): CC: ~ Signed [facility] Work Phone: 1(434) 308-543910-25-2023 Progress note Author Eladio Lucas [facility] September 21, 2023 11:40am Note Date/Time September 21, 2023 1 1:34am [facility] Medical Records Department [address] [place] [address] Progress Note - Hospitalist 09/21/23 1131 MR#: [id number] Acct: [id number] Name: OJDIE CARDENAS Rep #:[id number] : 1940 83 From: Eladio ramirez MD PCP: Dr. Rios Downey, DO Status:ADM IN Location: [place] [address] Subjective Subjective Doing well, no issues overnight seems to be breathing a little bit better. Objective Data Objective Data Vital Signs: Vital Signs Temp Pulse Resp BP Pulse Ox O2 Del Method O2 Flow Rate 97.7 F L 66 18 132/71 H 92 Nasal Cannula 3 09/21/23 09:00 09/21/23 09:00 09/21/23 09:00 09/21/23 09:00 09/21/23 09:17 09/21/23 09:00 09/21/23 09:17 FiO2 30 09/20/23 22:50 Oxygen Flow Rate (L/min) [ 6 AMBULATING with Oxygen #3] Oxygen Flow Rate (L/min) [ 4 AMBULATING with Oxygen #2] Oxygen Flow Rate (L/min) [ 3 AMBULATING with Oxygen #1] Oxygen Flow Rate (L/min) [At 3 REST with Oxygen] Oxygen Flow Rate (L/min) 3 Oxygen Delivery Method Nasal Cannula Weight: 251 lb 15.814 oz Body Mass Index (BMI) 41.9 Intake & Output: Intake and Output for Last 24 Hours 09/20/23 09/21/23 09/22/23 03:59 03:59 03:59 Intake Total 240 / 240 Output Total 1050 / 1050 1750 / 1750 400 / 400 Balance -810 / -810 -1750 / -1750 -400 / -400 Lab / Micro Data 09/17/23 06:40 09/21/23 04:08 Labs: Laboratory Results - last 24 hr 09/20/23 12:06: POC Glucose 179 H 09/20/23 17:14: POC Glucose 157 H 09/20/23 21:06: POC Glucose 186 H 09/21/23 04:08: Sodium 138, Potassium 4.6, Chloride 107, Carbon Dioxide 25.0, Anion Gap 6, BUN 67 H, Creatinine 2.73 H, Estim Creat Clear Calc 18.15, Est GFR (MDRD) Af Amer 29 L, Est GFR (MDRD) Non-Af 24 L, BUN/Creatinine Ratio 24.5 H, Glucose 127 H, Calcium 8.9 09/21/23 08:25: POC Glucose 118 H Micro: Microbiology 09/16/23 20:00 Mucosa - Nasopharyngeal Coronavirus COVID-19 PCR - Final 09/16/23 20:00 Mucosa - Nasopharyngeal Respiratory Panel (PCR) - Final Physical Exam Narrative General: Alert, Oriented x3, Cooperative, No apparent distress HEENT: Atraumatic, PERRLA, EOMI, Normocephalic Oral: Moist Mucosa Neck: Supple, No JVD Lungs: Diminished, Normal air movement, No rhonchi, No wheeze, No rales Cardiovascular: Regular rate, Regular Rhythm, Normal S1, Normal S2, No murmurs Abdomen: Soft, Non Tender, Non-Distended, No Hepato-splenomegaly Extremities: Edema, Capillary Refill Less than 3 Seconds Skin: No rashes, No breakdown Musculoskeletal: No Tenderness to Palpation of Joints or Extremities Neurological: Cranial nerves II-XII grossly intact, Motor Exam 5/5 strength throughout, Sensory exam intact to light touch and pain Psych/Mental Status: Normal Affect, Appropriate Assessment & Plan Assessment/Plan (1) Debility: PLAN: Plan 1. Acute on chronic hypoxic respiratory failure, mildly decompensated combined heart failure ?Most recent echo on 06/29/2023 with normal LV size, EF 40%, PASP 44 mmHg, otherwise unremarkable. BNP 179 on admit, appears to be around his baseline. ?Ambulatory pulse ox demonstrated need for 7 L with 3 L at rest. ? Appreciate pulmonology's assistance ? Continue with diuresis ? Monitor his renal function 2. Debility Secondary to age and significant comorbidities. Notably was just discharged from SNF on morning of 09/16, had been there since previous discharge on 08/22. ? PT/OT/case management following. Discussed at length with patient's granddaughter outside room on 09/18. Patient lives with granddaughter, was fairly functional at baseline prior to previous hospitalization from 08/18 to 08/22. Granddaughter then states that patient received poor care at rehab facility. She would like for patient to go home with home health care on discharge but recognizes that patient is weaker than his baseline. She states that patient has home health care set up already, and actually has palliative care coming in to see the patient in the home this week. ? There is no interest in SNF so when stable will discharge home, both him and granddaughter recognize some of the safety issues involved with this decision 3. Delirium, concern for underlying dementia Suspect hospital delirium. Patient alert and oriented x3 on 09/17, then delirious on morning of 09/18 and not answering questions appropriately. Wore BiPAP overnight on 09/17, no concern for hypercarbia. No other significant lab abnormalities. Patient's granddaughter states that patient experienced this type of delirium on previous hospitalization as well. ?He is on olanzapine, will discontinue Seroquel. Can give IV Haldol as needed if patient has significant hyperactive delirium. ? Appears to have resolved and granddaughter seeking to remove guardianship Chronic medical conditions: ? Morbid obesity: BMI 43. Encouraged lifestyle modifications. ? Seizure disorder: Continue home Keppra. ? CKD stage IV: Admission BUN/creatinine of 53/2.12, at baseline. Monitor dailyBMP. ? Paroxysmal A-fib: Continue home Eliquis. ? COPD with chronic hypoxic respiratory failure: Continue home inhalers. ? CAD s/p CABG: Continue home aspirin, statin. ? Type 2 diabetes: Holding home oral regimen, sliding scale insulin while inpatient. ? Anxiety/depression: Continue home sertraline and olanzapine. DVT: Eliquis Charges/Coding Visit Charges Inpatient E&M: 72857 Subs Hosp L2 09/21/23 1140 <Electronically signed by Eladio Lucas MD> Cosigner Signature (if applicable): CC: ~ Signed [facility] Work Phone: 1(179) 504-314210-24-2023 Consult note Author Yaakov Love [facility] September 20, 2023 3:26pm Note Date/Time September 20, 2023 3 :26pm [facility] System Medical Records Department [address] [place] [address] Consultation - Policy Change Clerks Supervisor 09/20/23 1512 MR#: [id number] Acct: [id number] Name: JODIE CARDENAS Lorna Rep #:[id number] : 1940 83 From: Yaakov Love MD PCP: Dr. Rios Downey, DO Status:ADM IN Location: [place] [address] Assessment & Plan Assessment/Plan (1) Acute exacerbation of CHF (congestive heart failure): QUALIFIERS: Heart failure type: combined systolic and diastolic Qualified Code(s): I50.43 - Acute on chronic combined systolic (congestive) and diastolic (congestive) heart failure (2) CKD (chronic kidney disease) stage 4, GFR 15-29 ml/min: (3) Chronic respiratory failure: QUALIFIERS: Respiratory failure complication: hypoxia Qualified Code(s): J96.11 - Chronic respiratory failure with hypoxia (4) Aortic stenosis: QUALIFIERS: Cardiac valve disease etiology: nonrheumatic Qualified Code(s): I35.0 - Nonrheumatic aortic (valve) stenosis PLAN: Plan RECOMMENDATIONS: 1. Continue diuresis 2. Walking oximetry prior to discharge 3. Continue BiPAP at night with sleep 4. Walking oximetry prior to discharge 5. Would not recommend steroids or antibiotics at this time IMPRESSIONS: 1. Acute on chronic hypoxic respiratory failure secondary to CHF Patient with multiple aggravating factors including aortic stenosis, combined CHF and pulmonary hypertension. Patient also noted to be [id number] pounds above dry weight. Agree with diuretics moving forward. Patient is not having any purulent sputum or other indication for acute infectious etiology. Would not recommend steroids or antibiotics at this time. Patient will need a walking oximetry prior to discharge as there can be significant increase in oxygen requirements in the setting of pulmonary hypertension. Patient will also benefit from using BiPAP with sleep and rescue during the day. Could consider transitioning to patient's home BiPAP prior to discharge to ensure this will be sufficient on discharge. Patient will have a relatively narrow therapeutic window on fluid status. 2. Debility/delirium v dementia/morbid obesity/seizure disorder/CKD stage IV/paroxysmal A-fib/CAD status post CABG/type 2 diabetes Complicates care, management, recovery and prognosis. Patient does have most of his home medications going well at this time. Haldol as needed would berecommended over barbiturates if necessary. Patient does not appear to have significant electrolyte abnormalities to contribute to delirium. Blood sugars are well controlled at this time HPI Consult Data Date of Consult: 09/20/23 HPI Narrative Reason for Consultation: Persistent hypoxia HPI Narrative: DON KAUF is an 83 M, with past medical history listed below, who presented to [facility] on 09/16/2023 secondary to a hypoxic episode. Patient reportedly was admitted at [facility] previously and transferred to a shelter center secondary to rehab. Patient reportedly was working with rehab and had desaturated into the upper 70s on pulse ox. Patient does have a known respiratory failure and requires 2 L/min at rest and 4L with exertion. Patient reportedly had been changed from Lasix to torsemide with little improvement. In the ER, patient was afebrile, bradycardic in the 50s and normotensive. Patient was requiring up to 5 L nasal cannula to maintain saturations. In the ER, patient had a white blood cell count of 7.1, hemoglobin of 10.1 and platelets of 130. Chemistry showed an elevated BUN of 53 and a creatinine of 2.12. Patient's bicarbonate was noted to be 22. Patient's BNP at that time [id number] with a troponin of 41. Chest x-ray at that time had shown cardiomegaly. Patient was admitted to the hospital as he required over 6 L nasal cannula to maintain saturations with ambulation. Since being admitted to the hospital, patient has received significant diuresis. Patient has had a slight increase in creatinine, so a pulmonary consult was obtained for recommendations. Patient has been diuresed approximately 5.2 L from a weight of 118 kg to 115 kg. Patient's dry weight appears to be approximately 109 kg as recent as July 2023. Patient does follow with Dr. Garcia in our office. Patient has not reported any change in cough, production or sputum consistency, color or character. Patient has had some mild epistaxis with secondary hemoptysis. Patient is not reporting any chest pain. Patient does feel slightly improved over the course of the hospitalization, but is discouraged that he still requires so much oxygen patient's granddaughter was atthe bedside to provide additional information. Review of systems otherwise negative from a constitutional, HEENT, respiratory, cardiovascular, GI, genitourinary, musculoskeletal, skin, neurologic, psychiatric and hematologic system unless stated above. [facility] Medical History Anemia Atherosclerosis of coronary artery bypass graft without angina pectoris Atherosclerosis of coronary artery of nikolski heart without angina pectoris Chronic combined systolic and diastolic CHF (congestive heart failure) Chronic renal failure, stage 3 (moderate) Chronic respiratory failure with hypoxia COPD (chronic obstructive pulmonary disease) Essential (primary) hypertension Former smoker Hyperlipemia Left bundle branch block Lymphedema Morbid obesity with BMI of 45.0-49.9, adult Non-rheumatic aortic stenosis Obstructive sleep apnea Ocular migraine AUTUMN treated with BiPAP PAF (paroxysmal atrial fibrillation) TIA (transient ischemic attack) Type 2 diabetes mellitus without complications Venous insufficiency of both lower extremities Home Medications aspirin 81 mg tablet,delayed release 81 mg PO DAILY HEART HEALTH 07/11/16 [History Last Taken 07/03/23] multivitamin 1 ea PO DAILY HEALTH MAINTENANCE 07/11/16 [History Last Taken 08/18/23] insulin regular human 100 unit/mL injection solution 12 unit subcut BID [id number]/27/16 [History Last Taken 07/02/23] cholecalciferol (vitamin D3) 25 mcg (1,000 unit) tablet 25 mcg PO DAILY SUPPLEMENT 10/26/16 [History Last Taken 08/18/23] sertraline 25 mg tablet 25 mg PO DAILY DEPRESSION 01/10/18 [History Last Taken 08/18/23] insulin NPH isoph U-100 human 100 unit/mL subcutaneous suspension 20 unit subcutBID DIABETES 03/08/18 [History Last Taken 07/03/23] famotidine 20 mg tablet 20 mg PO DAILY GERD 11/13/19 [History Last Taken 08/18/23] olanzapine 2.5 mg tablet 2.5 mg PO QHS DEPRESSION 11/13/19 [History Last Taken 08/17/23] allopurinol 300 mg tablet 300 mg PO DAILY GOUT 12/07/21 [History Last Taken 08/18/23] apixaban 2.5 mg tablet (Eliquis) 2.5 mg PO BID BLOOD THINNER 10/07/22 [History Last Taken 07/03/23] calcitriol 0.25 mcg capsule 0.5 mcg PO MOWEFR SUPPLEMENT 10/07/22 [History Last Taken 08/17/23] isosorbide mononitrate 30 mg tablet,extended release 24 hr 30 mg PO DAILY HEART #90 tabs 02/01/23 [Rx Last Taken 08/18/23] potassium chloride 20 mEq tablet,extended release 20 meq PO DAILY potassium #1 TAB 07/03/23 [Rx Last Taken Unknown] psyllium husk (aspartame) 3 gram oral powder packet (Daily Fiber (psyllium-aspartame)) 1 packet PO BID constipation #0 ea 07/03/23 [Rx Last Taken 07/03/23] levetiracetam 100 mg/mL oral solution (Keppra) 500 mg PO BID 08/18/23 [History Last Taken 08/18/23] menthol 0.44 %-zinc oxide 20.6 % topical ointment (Calmoseptine) 1 applic topical BID 08/18/23 [History Last Taken 08/18/23] nystatin 100,000 unit/gram topical powder (Nystop) 1 applic topical BID 08/18/23[History Last Taken 08/18/23] sennosides 8.6 mg-docusate sodium 50 mg tablet (2-in-1 Laxative) 1 tab-cap PO BID 08/18/23 [History Last Taken 08/18/23] amlodipine 2.5 mg tablet 2.5 mg PO DAILY 09/16/23 [History Last Taken Unknown] torsemide 20 mg tablet 20 mg PO DAILY 09/16/23 [History Last Taken Unknown] Allergy/AdvReac Type Severity Reaction Status Date / Time Penicillins [PCN] Allergy Swelling Verified 09/16/23 15:20 Family History Father Myocardial infarction Mother CVA (cerebral vascular accident) Brother CAD (coronary artery disease) Diabetes Surgical History H/O aortic valve replacement (02/24/16) H/O coronary artery bypass surgery (02/24/16) Hx of cholecystectomy (01/13/17) Social History household members: family and other details: Granddaughter. Smoking Status: Former smoker how long ago did patient quit smokin + years alcohol intake: never substance use type: does not use caffeine: Yes Type: carbonated beverages and tea ROS ROS Narrative See HPI Physical Exam Const alert Constitutional Narrative: Patient sitting in the chair. Somewhat garbled speech. HEENT normocephalic, head/scalp atraumatic, hearing grossly normal bilaterally, nasal mucous membranes and turbinates normal and moist oral mucous membranes Eyes PERRL, EOMs intact bilaterally and conjunctivae normal Neck full ROM, no lymphadenopathy and supple Lymph Lymphatic: no lymphadenopathy noted Resp Resp Narrative: Comfortable breathing at rest, but tachypnea with minimal exertion. Auscultation: rales bilateral base Cardio regular rate, regular rhythm, S1 normal heart sound, S2 normal heart sound and peripheral pulses 2+ throughout Heart Sounds: murmur systolic II/ soft early right sternal border GI normal to inspection, nondistended, normoactive bowel sounds, soft to palpation, non-tender and non-distended Back/Spine normal ROM Extremity normal to inspection and full ROM General Extremity: edema bilateral (2+ bilateral. Dionna bandage in place.) lower extremity Skin no rashes or lesions noted Neuro moves all extremities Psych mental status grossly normal Medical Records Data Attestation: I reviewed the patient's medical records Lab / Micro Data Attestation: I reviewed the patient's lab results. 09/17/23 06:40 09/20/23 04:51 Labs: Laboratory Results - last 24 hr 09/19/23 11:42: POC Glucose 150 H 09/19/23 16:06: POC Glucose 131 H 09/19/23 21:59: POC Glucose 120 H 09/20/23 04:51: Sodium 139, Potassium 4.9, Chloride 110 H, Carbon Dioxide 24.0, Anion Gap 5, BUN 66 H, Creatinine 2.61 H, Estim Creat Clear Calc 18.98, Est GFR (MDRD) Af Amer 30 L, Est GFR (MDRD) Non-Af 25 L, BUN/Creatinine Ratio 25.3 H, Glucose 112 H, Calcium 8.9 09/20/23 08:35: POC Glucose 95 09/20/23 12:06: POC Glucose 179 H Charges/Coding Visit Charges Inpatient E&M: 55810 Init Hosp L3 09/20/23 1526 <Electronically signed by Yaakov Love MD> Cosigner Signature (if applicable): CC: IAN Saenz; Dr. Aleksander Hilliard DO; Dr. Patricia Alcantara MD; Dr. Yaakov Love MD; Dr. Josh Cline DO; Dr. Michelle Peters MD; Dr. Otto Jerry MD; Dr. Woody Brunson DO; Dr. Rios Downey DO; Dr. Tal Ashraf MD~ Signed [facility] Work Phone: [phone]) 509-734210-24-2023 Progress note Author Eladio Lance [facility] September 20, 2023 1:43pm Note Date/Time September 20, 2023 1 :43pm [facility] System Medical Records Department [address] [place] [address] Progress Note - Hospitalist 09/20/23 1340 MR#: [id number] Acct: [id number] Name: JODIE CARDENAS Rep #:[id number] : 1940 83 From: Eladio ramirez MD PCP: Dr. Rios Downey DO Status:ADM IN Location: [place] [address] Subjective Subjective Doing well, no issues overnight. Wearing his BiPAP consistently while sleeping Objective Data Objective Data Vital Signs: Vital Signs Temp Pulse Resp BP Pulse Ox O2 Del Method O2 Flow Rate 98.6 F 63 15 124/52 H 92 Nasal Cannula 3 09/20/23 08:32 09/20/23 08:32 09/20/23 08:32 09/20/23 08:32 09/20/23 09:56 09/20/23 13:22 09/20/23 13:22 FiO2 40 09/20/23 03:00 Oxygen Flow Rate (L/min) [ 6 AMBULATING with Oxygen #3] Oxygen Flow Rate (L/min) [ 5 AMBULATING with Oxygen #2] Oxygen Flow Rate (L/min) [ 4 AMBULATING with Oxygen #1] Oxygen Flow Rate (L/min) [At 2 REST with Oxygen] Oxygen Flow Rate (L/min) 3 Oxygen Delivery Method Nasal Cannula Weight: 253 lb 4.978 oz Body Mass Index (BMI) 42.1 Intake & Output: Intake and Output for Last 24 Hours 09/19/23 09/20/23 09/21/23 03:59 03:59 03:59 Intake Total 100 / 100 240 / 240 Output Total 1600 / 1600 1050 / 1050 500 / 500 Balance -1500 / -1500 -810 / -810 -500 / -500 Lab / Micro Data 09/17/23 06:40 09/20/23 04:51 Labs: Laboratory Results - last 24 hr 09/19/23 11:42: POC Glucose 150 H 09/19/23 16:06: POC Glucose 131 H 09/19/23 21:59: POC Glucose 120 H 09/20/23 04:51: Sodium 139, Potassium 4.9, Chloride 110 H, Carbon Dioxide 24.0, Anion Gap 5, BUN 66 H, Creatinine 2.61 H, Estim Creat Clear Calc 18.98, Est GFR (MDRD) Af Amer 30 L, Est GFR (MDRD) Non-Af 25 L, BUN/Creatinine Ratio 25.3 H, Glucose 112 H, Calcium 8.9 09/20/23 08:35: POC Glucose 95 09/20/23 12:06: POC Glucose 179 H Micro: Microbiology 09/16/23 20:00 Mucosa - Nasopharyngeal Coronavirus COVID-19 PCR - Final 09/16/23 20:00 Mucosa - Nasopharyngeal Respiratory Panel (PCR) - Final Physical Exam Narrative General: Alert, Oriented x3, Cooperative, No apparent distress HEENT: Atraumatic, PERRLA, EOMI, Normocephalic Oral: Moist Mucosa Neck: Supple, No JVD Lungs: Diminished, Normal air movement, No rhonchi, No wheeze, No rales Cardiovascular: Regular rate, Regular Rhythm, Normal S1, Normal S2, No murmurs Abdomen: Soft, Non Tender, Non-Distended, No Hepato-splenomegaly Extremities: Edema, Capillary Refill Less than 3 Seconds Skin: No rashes, No breakdown Musculoskeletal: No Tenderness to Palpation of Joints or Extremities Neurological: Cranial nerves II-XII grossly intact, Motor Exam 5/5 strength throughout, Sensory exam intact to light touch and pain Psych/Mental Status: Normal Affect, Appropriate Assessment & Plan Assessment/Plan (1) Debility: PLAN: Plan 1. Acute on chronic hypoxic respiratory failure, mildly decompensated combined heart failure Unclear etiology, may be secondary to under diuresis, no other clear inciting factor. Patient was noted to be hypoxic down to the high 70s with increased work of breathing on exertion, which prompted coming to the ED. Patient notablyhad just been discharged from SNF on morning of 09/16. Chest x-ray in ED showedcardiomegaly without radiographic evidence of acute cardiopulmonary disease. Most recent echo on 06/29/2023 with normal LV size, EF 40%, PASP 44 mmHg, otherwise unremarkable. BNP 179 on admit, appears to be around his baseline. ? Started to see contraction on BMP on 09/18, de-escalated to p.o. Lasix 40 mg daily (home dose). Wean supplemental oxygen as able. Continue home inhalers asnoted below. PT/OT/case management following. ?Ambulatory pulse ox today demonstrated need for 7 L with 3 L at rest. Will consult pulmonology for assistance unclear whether there is another process or he just needs to be more aggressively diuresed however his renal function is worsening 2. Debility Secondary to age and significant comorbidities. Notably was just discharged from SNF on morning of 09/16, had been there since previous discharge on 08/22. ? PT/OT/case management following. Discussed at length with patient's granddaughter outside room on 09/18. Patient lives with granddaughter, was fairly functional at baseline prior to previous hospitalization from 08/18 to 08/22. Granddaughter then states that patient received poor care at rehab facility. She would like for patient to go home with home health care on discharge but recognizes that patient is weaker than his baseline. She states that patient has home health care set up already, and actually has palliative care coming in to see the patient in the home this week. ? There is no interest in SNF 3. Delirium, concern for underlying dementia Suspect hospital delirium. Patient alert and oriented x3 on 09/17, then delirious on morning of 09/18 and not answering questions appropriately. Wore BiPAP overnight on 09/17, no concern for hypercarbia. No other significant lab abnormalities. Patient's granddaughter states that patient experienced this type of delirium on previous hospitalization as well. ?He is on olanzapine, will discontinue Seroquel. Can give IV Haldol as needed if patient has significant hyperactive delirium. ? Appears to have resolved and granddaughter seeking to remove guardianship Chronic medical conditions: ? Morbid obesity: BMI 43. Encouraged lifestyle modifications. ? Seizure disorder: Continue home Keppra. ? CKD stage IV: Admission BUN/creatinine of 53/2.12, at baseline. Monitor dailyBMP. ? Paroxysmal A-fib: Continue home Eliquis. ? COPD with chronic hypoxic respiratory failure: Continue home inhalers. ? CAD s/p CABG: Continue home aspirin, statin. ? Type 2 diabetes: Holding home oral regimen, sliding scale insulin while inpatient. ? Anxiety/depression: Continue home sertraline and olanzapine. DVT: Eliquis Charges/Coding Visit Charges Inpatient E&M: 10770 Subs Hosp L2 09/20/23 1343 <Electronically signed by Eladio Lucas MD> Cosigner Signature (if applicable): CC: ~ Signed [facility] Work Phone: 1(283) 128-695410-23-2023 Progress note Author Eladio Lucas [facility] September 19, 2023 1:41pm Note Date/Time September 19, 2023 1 :34pm [facility] System Medical Records Department [address] [place] [address] Progress Note - Hospitalist 09/19/23 1320 MR#: [id number] Acct: [id number] Name: JODIE CARDENAS Rep #:[id number] : 1940 83 From: Eladio ramirez MD PCP: Dr. Rios Downey, DO Status:ADM IN Location: [place] [address] Subjective Subjective Doing well, feels a bit better. Oxygen requirement is still elevated as he is supposed to be 2 L at rest and 4 L with ambulation he is currently maintaining 5L both at rest and with ambulation Objective Data Objective Data Vital Signs: Vital Signs Temp Pulse Resp BP Pulse Ox O2 Del Method O2 Flow Rate 97.9 F 53 L 16 115/55 L 97 Nasal Cannula 4 09/19/23 08:44 09/19/23 08:44 09/19/23 08:44 09/19/23 08:44 09/19/23 11:06 09/19/23 10:00 09/19/23 11:06 FiO2 30 09/19/23 03:25 Oxygen Flow Rate (L/min) 4 Oxygen Delivery Method Nasal Cannula Weight: 255 lb 15.307 oz Body Mass Index (BMI) 42.5 Intake & Output: Intake and Output for Last 24 Hours 09/18/23 09/19/23 09/20/23 03:59 03:59 03:59 Intake Total 240 / 240 100 / 100 240 / 240 Output Total 2500 / 2500 1600 / 1600 550 / 550 Balance -2260 / -2260 -1500 / -1500 -310 / -310 Lab / Micro Data 09/17/23 06:40 09/19/23 04:55 Labs: Laboratory Results - last 24 hr 09/18/23 16:06: POC Glucose 158 H 09/18/23 20:51: POC Glucose 188 H 09/19/23 04:55: Sodium 138, Potassium 5.2 H, Chloride 110 H, Carbon Dioxide 24.0, Anion Gap 4 L, BUN 61 H, Creatinine 2.40 H, Estim Creat Clear Calc 20.64, Est GFR (MDRD) Af Amer 34 L, Est GFR (MDRD) Non-Af 28 L, BUN/Creatinine Ratio 25.4 H, Glucose 127 H, Calcium 9.0 09/19/23 08:49: POC Glucose 102 Micro: Microbiology 09/16/23 20:00 Mucosa - Nasopharyngeal Coronavirus COVID-19 PCR - Final 09/16/23 20:00 Mucosa - Nasopharyngeal Respiratory Panel (PCR) - Final Physical Exam Narrative General: Alert, Oriented x3, Cooperative, No apparent distress HEENT: Atraumatic, PERRLA, EOMI, Normocephalic Oral: Moist Mucosa Neck: Supple, No JVD Lungs: Diminished, Normal air movement, No rhonchi, No wheeze, No rales Cardiovascular: Regular rate, Regular Rhythm, Normal S1, Normal S2, No murmurs Abdomen: Soft, Non Tender, Non-Distended, No Hepato-splenomegaly Extremities: Edema, Capillary Refill Less than 3 Seconds Skin: No rashes, No breakdown Musculoskeletal: No Tenderness to Palpation of Joints or Extremities Neurological: Cranial nerves II-XII grossly intact, Motor Exam 5/5 strength throughout, Sensory exam intact to light touch and pain Psych/Mental Status: Normal Affect, Appropriate Assessment & Plan Assessment/Plan (1) Debility: PLAN: Plan 1. Acute on chronic hypoxic respiratory failure, mildly decompensated combined heart failure Unclear etiology, may be secondary to under diuresis, no other clear inciting factor. Patient was noted to be hypoxic down to the high 70s with increased work of breathing on exertion, which prompted coming to the ED. Patient notablyhad just been discharged from SNF on morning of 09/16. Chest x-ray in ED showedcardiomegaly without radiographic evidence of acute cardiopulmonary disease. Most recent echo on 06/29/2023 with normal LV size, EF 40%, PASP 44 mmHg, otherwise unremarkable. BNP 179 on admit, appears to be around his baseline. ? Started to see contraction on BMP on 09/18, de-escalated to p.o. Lasix 40 mg daily (home dose). Wean supplemental oxygen as able. Continue home inhalers asnoted below. PT/OT/case management following. ? Desaturated with ambulation today down to 86% and had to be turned up to 5 to 6 L nasal cannula. 2. Debility Secondary to age and significant comorbidities. Notably was just discharged from SNF on morning of 09/16, had been there since previous discharge on 08/22. ? PT/OT/case management following. Discussed at length with patient's granddaughter outside room on 09/18. Patient lives with granddaughter, was fairly functional at baseline prior to previous hospitalization from 08/18 to 08/22. Granddaughter then states that patient received poor care at rehab facility. She would like for patient to go home with home health care on discharge but recognizes that patient is weaker than his baseline. She states that patient has home health care set up already, and actually has palliative care coming in to see the patient in the home this week. I discussed my concernwith her that the patient has several significant comorbidities and I am concerned about his long-term prognosis, foresee patient needing extensive help at baseline going forward. We will follow-up PT/OT recommendations tomorrow anddiscuss further plans with case management moving forward. 3. Delirium, concern for underlying dementia Suspect hospital delirium. Patient alert and oriented x3 on 09/17, then delirious on morning of 09/18 and not answering questions appropriately. Wore BiPAP overnight on 09/17, no concern for hypercarbia. No other significant lab abnormalities. Patient's granddaughter states that patient experienced this type of delirium on previous hospitalization as well. ? We will start Seroquel 25 mg twice daily. Can give IV Haldol as needed if patient has significant hyperactive delirium. ? Appears to have resolved and granddaughter seeking to remove guardianship Chronic medical conditions: ? Morbid obesity: BMI 43. Encouraged lifestyle modifications. ? Seizure disorder: Continue home Keppra. ? CKD stage IV: Admission BUN/creatinine of 53/2.12, at baseline. Monitor dailyBMP. Creatinine today is 2.4 ? Paroxysmal A-fib: Continue home Eliquis. ? COPD with chronic hypoxic respiratory failure: Continue home inhalers. ? CAD s/p CABG: Continue home aspirin, statin. ? Type 2 diabetes: Holding home oral regimen, sliding scale insulin while inpatient. ? Anxiety/depression: Continue home sertraline and olanzapine. DVT: Eliquis Charges/Coding Visit Charges Inpatient E&M: 22897 Subs Hosp L2 09/19/23 1341 <Electronically signed by Eladio Lucas MD> Cosigner Signature (if applicable): CC: ~ Signed [facility] Work Phone: 1(356) 484-293510-22-2023 Progress note Author Aleksander Hilliard [facility] September 18, 2023 2:18pm Note Date/Time September 18, 2023 2 :18pm [facility] System Medical Records Department [address] [facility] [place] [address] Progress Note - Hospitalist 09/18/23 1400 MR#: [id number] Acct: [id number] Name: JODIE CARDENAS Rep #:[id number] : 1940 83 From: Aleksander camargo DO PCP: Dr. Rios Downey, DO Status:AD[facility] Reason for Visit Reason for Visit: Diagnoses Heart failure, unspecified (09/16/23) Other malaise (09/16/23) Subjective Subjective Patient seen at bedside this morning. Sitting in bedside chair, no acute distress. Patient does appear very fatigued this morning and somewhat delirious, giving very short answers to questions. Satting well on 5 L nasal cannula, no increased work of breathing noted. Patient notably did wear his BiPAP overnight. No other concerns this morning. Objective Data Objective Data Vital Signs: Vital Signs Temp Pulse Resp BP Pulse Ox O2 Del Method O2 Flow Rate 97.5 F L 56 L 16 147/81 H 96 Nasal Cannula 5 09/18/23 13:48 09/18/23 13:48 09/18/23 13:48 09/18/23 13:48 09/18/23 13:48 09/18/23 13:48 09/18/23 13:48 FiO2 40 09/18/23 05:49 Oxygen Flow Rate (L/min) 5 Oxygen Delivery Method Nasal Cannula Weight: 116.2 kg Body Mass Index (BMI) 42.6 Intake & Output: Intake and Output for Last 24 Hours 09/16/23 09/17/23 09/18/23 23:59 23:59 23:59 Intake Total 240 / 240 120 / 240 120 / 120 Output Total 400 / 400 1800 / 2500 900 / 900 Balance -160 / -160 -1680 / -2260 -780 / -780 Lab / Micro Data 09/17/23 06:40 09/18/23 07:15 Labs: Laboratory Results - last 24 hr 09/17/23 17:10: POC Glucose 159 H 09/17/23 21:10: POC Glucose 188 H 09/18/23 07:15: Sodium 141, Potassium 5.0, Chloride 111 H, Carbon Dioxide 25.0, Anion Gap 5, BUN 51 H, Creatinine 2.17 H, Estim Creat Clear Calc 22.83, Est GFR (MDRD) Af Amer 38 L, Est GFR (MDRD) Non-Af 31 L, BUN/Creatinine Ratio 23.5 H, Glucose 110 H, Calcium 8.9 09/18/23 07:42: POC Glucose 115 H 09/18/23 12:09: POC Glucose 171 H Micro: Microbiology 09/16/23 20:00 Mucosa - Nasopharyngeal Coronavirus COVID-19 PCR - Final 09/16/23 20:00 Mucosa - Nasopharyngeal Respiratory Panel (PCR) - Final Physical Exam Const alert Constitutional Narrative: Elderly male, morbidly obese, sitting comfortably in bedside chair but very fatigued this morning and somewhat delirious, not answering questions appropriately. HEENT normocephalic, head/scalp atraumatic, hearing grossly normal bilaterally, nasal mucous membranes and turbinates normal and moist oral mucous membranes Eyes PERRL, EOMs intact bilaterally and conjunctivae normal Neck full ROM, no lymphadenopathy and supple Lymph Lymphatic: no lymphadenopathy noted Chest inspection of chest normal Resp Resp Narrative: Breathing comfortably on 5 L nasal cannula, no increased work of breathing noted. Decreased breath sounds bilaterally throughout, no rhonchi or wheezing noted. Cardio regular rate, regular rhythm, no murmurs and peripheral pulses 2+ throughout GI normal to inspection, nondistended, normoactive bowel sounds, soft to palpation,non-tender and non-distended Back/Spine normal ROM Extremity normal to inspection and full ROM Extremity Narrative: +1-2 edema noted. Skin no rashes or lesions noted Psych mental status grossly normal Assessment & Plan Assessment/Plan (1) Debility: PLAN: Plan Patient is an 83-year-old male with history of COPD with chronic hypoxic respiratory failure on 4 L nasal cannula, combined heart failure, CKD stage IV, morbid obesity, CAD s/p CABG x4, type 2 diabetes, and recent admission for CVA rule out who presented to [facility] ED on 09/16/2023 with worsening shortness of breath. 1. Acute on chronic hypoxic respiratory failure, mildly decompensated combined heart failure Unclear etiology, may be secondary to under diuresis, no other clear inciting factor. Patient was noted to be hypoxic down to the high 70s with increased work of breathing on exertion, which prompted coming to the ED. Patient notablyhad just been discharged from SNF on morning of 09/16. Chest x-ray in ED showedcardiomegaly without radiographic evidence of acute cardiopulmonary disease. Most recent echo on 06/29/2023 with normal LV size, EF 40%, PASP 44 mmHg, otherwise unremarkable. BNP 179 on admit, appears to be around his baseline. ? Started to see contraction on BMP on 09/18, de-escalated to p.o. Lasix 40 mg daily (home dose). Wean supplemental oxygen as able. Continue home inhalers asnoted below. PT/OT/case management following. 2. Debility Secondary to age and significant comorbidities. Notably was just discharged from SNF on morning of 09/16, had been there since previous discharge on 08/22. ? PT/OT/case management following. Discussed at length with patient's granddaughter outside room on 09/18. Patient lives with granddaughter, was fairly functional at baseline prior to previous hospitalization from 08/18 to 08/22. Granddaughter then states that patient received poor care at rehab facility. She would like for patient to go home with home health care on discharge but recognizes that patient is weaker than his baseline. She states that patient has home health care set up already, and actually has palliative care coming in to see the patient in the home this week. I discussed my concern withher that the patient has several significant comorbidities and I am concerned about his long-term prognosis, foresee patient needing extensive help at baseline going forward. We will follow-up PT/OT recommendations tomorrow and discuss further plans with case management moving forward. 3. Delirium, concern for underlying dementia Suspect hospital delirium. Patient alert and oriented x3 on 09/17, then delirious on morning of 09/18 and not answering questions appropriately. Wore BiPAP overnight on 09/17, no concern for hypercarbia. No other significant lab abnormalities. Patient's granddaughter states that patient experienced this type of delirium on previous hospitalization as well. ? We will start Seroquel 25 mg twice daily. Can give IV Haldol as needed if patient has significant hyperactive delirium. Chronic medical conditions: ? Morbid obesity: BMI 43. Encouraged lifestyle modifications. ? Seizure disorder: Continue home Keppra. ? CKD stage IV: Admission BUN/creatinine of 53/2.12, at baseline. Monitor dailyBMP. ? Paroxysmal A-fib: Continue home Eliquis. ? COPD with chronic hypoxic respiratory failure: Continue home inhalers. ? CAD s/p CABG: Continue home aspirin, statin. ? Type 2 diabetes: Holding home oral regimen, sliding scale insulin while inpatient. ? Anxiety/depression: Continue home sertraline and olanzapine. DVT prophylaxis: Eliquis CODE STATUS: DNR CCA, DO NOT INTUBATE Expected disposition: Home with home health care versus SNF, TBD Total clinical time spent by myself addressing the patient's medical issues, reviewing all the data, and collaborating with patient's care team: 35 minutes. Charges/Coding Visit Charges Inpatient E&M: 41695 Subs Hosp L2 09/18/23 1418 <Electronically signed by Aleksander Hilliard DO> Cosigner Signature (if applicable): CC: ~ Signed [facility] Work Phone: 1(654) 880-779510-21-2023 Progress note Author Aleksander Hilliard [facility] September 17, 2023 3:42pm Note Date/Time September 17, 2023 3 :38pm [facility] Health System Medical Records Department [address] [place] [address] Progress Note - Hospitalist 09/17/23 1527 MR#: [id number] Acct: [id number] Name: JODIE CARDENAS Rep #:[id number] : 1940 83 From: Aleksander camargo DO PCP: Dr. Rios Downey, DO Status:ADM IN Location: [place] [address] Reason for Visit Reason for Visit: Diagnoses Heart failure, unspecified (09/16/23) Subjective Subjective Patient seen at bedside this morning. Sitting comfortably in bedside chair, conversing normally, no acute distress. Patient had just worked with therapy when I entered the room, had been moved to the bedside chair from his bed and had some shortness of breath but otherwise did fairly well. Patient denies any overt volume overload in his legs this morning. States he generally does feel weaker than his baseline. He denies any fevers or chills. No other acute concerns morning. Objective Data Objective Data Vital Signs: Vital Signs Temp Pulse Resp BP Pulse Ox O2 Del Method O2 Flow Rate 97.6 F L 59 L 15 158/65 H 94 Nasal Cannula 4 09/17/23 13:44 09/17/23 13:44 09/17/23 13:44 09/17/23 13:44 09/17/23 13:44 09/17/23 13:44 09/17/23 13:44 FiO2 40 09/17/23 05:45 Oxygen Flow Rate (L/min) 4 Oxygen Delivery Method Nasal Cannula Weight: 117.6 kg Body Mass Index (BMI) 43.2 Intake & Output: Intake and Output for Last 24 Hours 09/15/23 09/16/23 09/17/23 23:59 23:59 23:59 Intake Total 240 / 240 120 / 120 Output Total 400 / 400 1000 / 1000 Balance -160 / -160 -880 / -880 Lab / Micro Data 09/17/23 06:40 09/17/23 06:40 Labs: Laboratory Results - last 24 hr 09/16/23 16:51: WBC 7.1, RBC 3.16 L, Hgb 10.1 L, Hct 32.2 L, MCV 101.9 H, MCH 32.0, MCHC 31.4 L, RDW Std Deviation 60.7 H, RDW Coeff of Yeny 16.4 H, Plt Count 130 L, MPV 11.2, Immature Gran % (Auto) 0.700, Neut % (Auto) 68.1, Lymph % (Auto) 19.0, Dyer % (Auto) 8.1, Eos % (Auto) 3.7, Baso % (Auto) 0.4, Absolute Neuts (auto) 4.8, Absolute Lymphs (auto) 1.34, Nucleated RBC % 0, Sodium 141, Potassium 4.8, Chloride 112 H, Carbon Dioxide 22.0, Anion Gap 7, BUN 53 H, Creatinine 2.12 H, Estim Creat Clear Calc 23.37, Est GFR (MDRD) Af Amer 39 L, Est GFR (MDRD) Non-Af 32 L, BUN/Creatinine Ratio 25.0 H, Glucose 131 H, Calcium 8.8, Magnesium 2.0, Troponin I High Sens 41, B-Natriuretic Peptide 179.0 H 09/16/23 19:07: Troponin I High Sens 46 09/16/23 19:34: Procalcitonin 0.08 09/16/23 21:42: POC Glucose 110 H 09/16/23 22:40: Troponin I High Sens 45 09/17/23 06:40: WBC 6.4, RBC 3.11 L, Hgb 9.5 L, Hct 31.6 L, MCV 101.6 H, MCH 30.5, MCHC 30.1 L, RDW Std Deviation 60.3 H, RDW Coeff of Yeny 16.3 H, Plt Count 127 L, MPV 10.7, Immature Gran % (Auto) 0.300, Neut % (Auto) 70.5 H, Lymph % (Auto) 16.9 L, Dyer % (Auto) 7.1, Eos % (Auto) 4.6, Baso % (Auto) 0.6, Absolute Neuts (auto) 4.5, Absolute Lymphs (auto) 1.07, Nucleated RBC % 0, Sodium 142, Potassium 4.6, Chloride 114 H, Carbon Dioxide 23.0, Anion Gap 5, BUN 48 H, Creatinine 1.95 H, Estim Creat Clear Calc 24.46, Est GFR (MDRD) Af Amer 43 L, Est GFR (MDRD) Non-Af 35 L, BUN/Creatinine Ratio 24.6 H, Glucose 137 H, Calcium 8.8, Total Bilirubin 0.70, AST 13 L, ALT 17, Alkaline Phosphatase 173 H, Total Protein 7.1, Albumin 2.8 L, Globulin 4.3 H, Albumin/Globulin Ratio 0.7 L 09/17/23 07:55: POC Glucose 126 H 09/17/23 12:03: POC Glucose 173 H Micro: Microbiology 09/16/23 20:00 Mucosa - Nasopharyngeal Coronavirus COVID-19 PCR - Final 09/16/23 20:00 Mucosa - Nasopharyngeal Respiratory Panel (PCR) - Final Radiography Diagnostic Testing: Radiology Impression Chest X-Ray 09/16/23 16:40 IMPRESSION: Cardiomegaly without radiographic evidence of acute cardiopulmonary disease. Electronically Signed: Vincent Underwood MD at 17:04 EDT , Physical Exam Const alert and oriented x3 Constitutional Narrative: Pleasant elderly male, morbidly obese, sitting comfortably in bedside chair, conversing normally, no acute distress. General Appearance: cooperative and comfortable HEENT normocephalic, head/scalp atraumatic, hearing grossly normal bilaterally, nasal mucous membranes and turbinates normal and moist oral mucous membranes Eyes PERRL, EOMs intact bilaterally and conjunctivae normal Neck full ROM, no lymphadenopathy and supple Lymph Lymphatic: no lymphadenopathy noted Chest inspection of chest normal Resp Resp Narrative: Breathing comfortably on 6 L nasal cannula, no increased work of breathing noted. Decreased breath sounds bilaterally throughout, no rhonchi or wheezing noted. Cardio regular rate, regular rhythm, no murmurs and peripheral pulses 2+ throughout GI normal to inspection, nondistended, normoactive bowel sounds, soft to palpation,non-tender and non-distended Back/Spine normal ROM Extremity normal to inspection and full ROM Extremity Narrative: +2-3 edema noted. Skin no rashes or lesions noted Psych mental status grossly normal Assessment & Plan Assessment/Plan (1) Debility: PLAN: Plan Patient is an 83-year-old male with history of COPD with chronic hypoxic respiratory failure on 4 L nasal cannula, combined heart failure, CKD stage IV, morbid obesity, CAD s/p CABG x4, type 2 diabetes, and recent admission for CVA rule out who presented to [facility] ED on 09/16/2023 with worsening shortness of breath. 1. Acute on chronic hypoxic respiratory failure, mildly decompensated combined heart failure Unclear etiology, may be secondary to under diuresis, no other clear inciting factor. Patient was noted to be hypoxic down to the high 70s with increased work of breathing on exertion, which prompted coming to the ED. Patient notablyhad just been discharged from SNF on morning of 09/16. Chest x-ray in ED showedcardiomegaly without radiographic evidence of acute cardiopulmonary disease. Most recent echo on 06/29/2023 with normal LV size, EF 40%, PASP 44 mmHg, otherwise unremarkable. BNP 179 on admit, appears to be around his baseline. ? Continue IV Lasix 40 mg twice daily for now, can likely transition to p.o. Lasix tomorrow. Wean oxygen as able. PT/OT/case management following as below. Continue home inhalers as noted below. 2. Debility, concern for underlying dementia Secondary to age and significant comorbidities. Notably was just discharged from SNF on morning of 09/16, had been there since previous discharge on 08/22. ? PT/OT/case management following. Will likely need significant on discharge. Chronic medical conditions: ? Morbid obesity: BMI 43. Encouraged lifestyle modifications. ? Seizure disorder: Continue home Keppra. ? CKD stage IV: Admission BUN/creatinine of 53/2.12, at baseline. Monitor dailyBMP. ? Paroxysmal A-fib: Continue home Eliquis. ? COPD with chronic hypoxic respiratory failure: Continue home inhalers. ? CAD s/p CABG: Continue home aspirin, statin. ? Type 2 diabetes: Holding home oral regimen, sliding scale insulin while inpatient. ? Anxiety/depression: Continue home sertraline and olanzapine. DVT prophylaxis: Eliquis CODE STATUS: DNR CCA, DO NOT INTUBATE Expected disposition: SNF, 2 to 3 days Total clinical time spent by myself addressing the patient's medical issues, reviewing all the data, and collaborating with patient's care team: 35 minutes. Charges/Coding Visit Charges Inpatient E&M: 42443 Subs Hosp L2 09/17/23 1542 <Electronically signed by Aleksander Hilliard DO> Cosigner Signature (if applicable): CC: ~ Signed [facility] Work Phone: 1(622) 873-910410-20-2023 Discharge summary Author Cesar Medina [facility] September 16, 2023 6:42pm Note Date/Time September 16, 2023 6 :42pm [facility] Health System Medical Records Department [address] [place] [address] Emergency Department Summary 09/16/23 MR#: [id number] Acct: [id number] Name: JODIE CARDENAS Lorna Rep #:[id number] : 1940 83 From: Cesar Medina DO PCP: Dr. Rios Downey, DO Status:REG ER Location: ED HPI History of Present Illness Chief Complaint: Shortness of Breath Narrative Narrative: 83-year-old male with history of CHF, A-fib, CKD, CAD, diabetes, hypertension, sleep apnea presenting with hypoxic episode. Patient was recently inpatient at [facility] for what sounds like about a month. He was discharged to a shelter facility where he just left today. His daughter states that they were walking to the store and he was working to breathe and she put a pulseox on him and noted that he was in the upper 70s on his pulse ox. He normally wears 4 L when ambulating and 2 L when sitting. They presented to the ED for evaluation. He does state that when he was at the custodial he was huffing and puffing when he was walking but not like today. He states that they change his Lasix to torsemide while he was at the shelter facility he is not sure why they did this. They also put him on potassium. 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 angina pectoris Atherosclerosis of coronary artery of [place] heart without angina pectoris Chronic combined systolic and diastolic CHF (congestive heart failure) Chronic renal failure, stage 3 (moderate) Chronic respiratory failure with hypoxia COPD (chronic obstructive pulmonary disease) Essential (primary) hypertension Former smoker Hyperlipemia Left bundle branch block Lymphedema Morbid obesity with BMI of 45.0-49.9, adult Non-rheumatic aortic stenosis Obstructive sleep apnea Ocular migraine AUTUMN treated with BiPAP PAF (paroxysmal atrial fibrillation) TIA (transient ischemic attack) Type 2 diabetes mellitus without complications Venous insufficiency of both lower extremities Home Medications aspirin 81 mg tablet,delayed release 81 mg PO DAILY HEART HEALTH 07/11/16 [History Last Taken 07/03/23] multivitamin 1 ea PO DAILY HEALTH MAINTENANCE 07/11/16 [History Last Taken 08/18/23] insulin regular human 100 unit/mL injection solution 12 unit subcut BID [id number]/27/16 [History Last Taken 07/02/23] cholecalciferol (vitamin D3) 25 mcg (1,000 unit) tablet 25 mcg PO DAILY SUPPLEMENT 10/26/16 [History Last Taken 08/18/23] sertraline 25 mg tablet 25 mg PO DAILY DEPRESSION 01/10/18 [History Last Taken 08/18/23] insulin NPH isoph U-100 human 100 unit/mL subcutaneous suspension 20 unit subcutBID DIABETES 03/08/18 [History Last Taken 07/03/23] famotidine 20 mg tablet 20 mg PO DAILY GERD 11/13/19 [History Last Taken 08/18/23] olanzapine 2.5 mg tablet 2.5 mg PO QHS DEPRESSION 11/13/19 [History Last Taken 08/17/23] allopurinol 300 mg tablet 300 mg PO DAILY GOUT 12/07/21 [History Last Taken 08/18/23] apixaban 2.5 mg tablet (Eliquis) 2.5 mg PO BID BLOOD THINNER 10/07/22 [History Last Taken 07/03/23] calcitriol 0.25 mcg capsule 0.5 mcg PO MOWEFR SUPPLEMENT 10/07/22 [History Last Taken 08/17/23] isosorbide mononitrate 30 mg tablet,extended release 24 hr 30 mg PO DAILY HEART #90 tabs 02/01/23 [Rx Last Taken 08/18/23] potassium chloride 20 mEq tablet,extended release 20 meq PO DAILY potassium #1 TAB 07/03/23 [Rx Last Taken Unknown] psyllium husk (aspartame) 3 gram oral powder packet (Daily Fiber (psyllium-aspartame)) 1 packet PO BID constipation #0 ea 07/03/23 [Rx Last Taken 07/03/23] levetiracetam 100 mg/mL oral solution (Keppra) 500 mg PO BID 08/18/23 [History Last Taken 08/18/23] menthol 0.44 %-zinc oxide 20.6 % topical ointment (Calmoseptine) 1 applic topical BID 08/18/23 [History Last Taken 08/18/23] nystatin 100,000 unit/gram topical powder (Nystop) 1 applic topical BID 08/18/23[History Last Taken 08/18/23] sennosides 8.6 mg-docusate sodium 50 mg tablet (2-in-1 Laxative) 1 tab-cap PO BID 08/18/23 [History Last Taken 08/18/23] amlodipine 2.5 mg tablet 2.5 mg PO DAILY 09/16/23 [History Last Taken Unknown] torsemide 20 mg tablet 20 mg PO DAILY 09/16/23 [History Last Taken Unknown] Allergy/AdvReac Type Severity Reaction Status Date / Time Penicillins [PCN] Allergy Swelling Verified 09/16/23 15:20 Family History Father Myocardial infarction Mother CVA (cerebral vascular accident) Brother CAD (coronary artery disease) Diabetes Surgical History H/O aortic valve replacement (02/24/16) H/O coronary artery bypass surgery (02/24/16) Hx of cholecystectomy (01/13/17) Social History household members: family and other details: Granddaughter. Smoking Status: Former smoker how long ago did patient quit smokin + years alcohol intake: never substance use type: does not use caffeine: Yes Type: carbonated beverages and tea ROS ROS ED Constitutional Constitutional ED: Denies chills, fever(s) or sweats Eyes Eyes: Denies blurry vision or change in vision ENT ENT ED: Denies ear pain or sore throat Cardiovascular Cardiovascular: Reports orthopnea; Denies chest pain, palpitations or racing heartbeat Respiratory/Chest Respiratory/Chest: Reports dyspnea, dyspnea on exertion and orthopnea; Denies sputum Gastrointestinal Gastrointestinal: Denies constipation, diarrhea, nausea or vomiting Genitourinary Genitourinary ED: Denies dysuria, hematuria or urinary frequency Musculoskeletal Musculoskeletal: Denies arthralgias, myalgias or neck pain Integumentary Denies abscess, Abrasions or rash Neurologic Neurologic: Denies headache(s), paresthesias or weakness Psychiatric Psychiatric: Denies anxiety, depression, suicidal ideation or suicidal thoughts Endocrine Endocrinology: Denies polydipsia or polyuria EXAM Physical Exam Const Vital Signs: 09/16/23 15:20 09/16/23 16:12 09/16/23 16:13 Temperature 95.5 F L Temperature Source Temporal Pulse Rate 56 L 52 L Respiratory Rate 18 17 Respiratory Effort Short of Breath Labored Respiratory Depth Normal Respiratory Pattern Normal Blood Pressure 121/79 H 137/74 H Blood Pressure Mean 93 95 Pulse Ox 96 98 Oxygen Delivery Method Nasal Cannula Nasal Cannula Nasal Cannula Oxygen Flow Rate (L/min) 4 5 5 09/16/23 16:39 Temperature Temperature Source Pulse Rate Respiratory Rate Respiratory Effort Respiratory Depth Respiratory Pattern Blood Pressure Blood Pressure Mean Pulse Ox 98 Oxygen Delivery Method Nasal Cannula Oxygen Flow Rate (L/min) 5 Positive well nourished and obese General Appearance ED: NAD Nutritional Appearance: obese HEENT Reports moist mucous membranes Eyes PERRL and EOMs intact bilaterally Neck no lymphadenopathy Resp normal respiratory effort Resp Narrative: Bibasilar crackles. Cardio regular rhythm Rate: bradycardia GI non-tender Extremity General Extremety ED: Yes edema General Extremity: edema Neuro oriented x3 and CN's II-XII intact bilaterally Motor Exam: strength 5/5 throughout Psych mental status grossly normal MDM MDM MDM Narrative Medical decision making narrative: 83-year-old male presenting with shortness of breath. He has bibasilar crackles on exam. He has lower extremity edema and history of heart failure I suspect that is what he is in today. Differential includes ACS, pneumonia, dehydration, electrolyte abnormalities, anemia. CBC was obtained to assess white blood cell count, hemoglobin, platelets. BMP to assess renal function and electrolytes. High-sensitivity troponin and EKG were obtained to assess for cardiac dysrhythmia and ischemia. BNP to assess for CHF. EKG on my interpretation shows what appears to be A-fib at 51 bpm. Chest x-ray my interpretation cardiomegaly but no significant pulmonary vascular congestion. CBC shows normal white blood cell count of 7.1. Hemoglobin 10.1 and at baseline. Electrolytes are unremarkable. Creatinine slightly elevated today at 2.12. High-sensitivity troponin is 41 and BNP is 179. I attempted to ambulate the patient around the emergency room with his 4 L and a walker and he did fairly well for the first part of the walker after returning to the room he had severe work of breathing and his pulse ox dropped to 82 to 83% on 4 L. We sat him down and put 6 L of oxygen on him and after couple of minutes he came up to 96. At this point I think it safer to admit him to the hospital given his hypoxia his work of breathing. He is amenable to this. Discussed with hospitalist for admission. Impression: 1. Hypoxia 2. CHF Lab Data Attestation: I reviewed the patient's lab results. Labs: Laboratory Results - last 24 hr 09/16/23 16:51 WBC 7.1 RBC 3.16 L Hgb 10.1 L Hct 32.2 L MCV 101.9 H MCH 32.0 MCHC 31.4 L RDW Std Deviation 60.7 H RDW Coeff of Yeny 16.4 H Plt Count 130 L MPV 11.2 Immature Gran % (Auto) 0.700 Neut % (Auto) 68.1 Lymph % (Auto) 19.0 Dyer % (Auto) 8.1 Eos % (Auto) 3.7 Baso % (Auto) 0.4 Absolute Neuts (auto) 4.8 Absolute Lymphs (auto) 1.34 Nucleated RBC % 0 Sodium 141 Potassium 4.8 Chloride 112 H Carbon Dioxide 22.0 Anion Gap 7 BUN 53 H Creatinine 2.12 H Estim Creat Clear Calc 23.37 Est GFR (MDRD) Af Amer 39 L Est GFR (MDRD) Non-Af 32 L BUN/Creatinine Ratio 25.0 H Glucose 131 H Calcium 8.8 Troponin I High Sens 41 B-Natriuretic Peptide 179.0 H Radiography Diagnostic Testing: Clinical Impression(s) from Imaging Studies Chest X-Ray 09/16/23 16:40 IMPRESSION: Cardiomegaly without radiographic evidence of acute cardiopulmonary disease. Electronically Signed: Vincent Underwood MD at 17:04 EDT Reading Location ID and State: [facility] / [place] Tel , Service support , Discharge Plan Triage Chief Complaint: Shortness of Breath ED Provider: Cesar Mednia Dx/Rx/DC Orders Prescriptions: No Action famotidine 20 mg tablet 20 mg PO DAILY olanzapine 2.5 mg tablet 2.5 mg PO QHS Eliquis 2.5 mg tablet 2.5 mg PO BID aspirin 81 MG tablet,delayed release (DR/EC) 81 mg PO DAILY Patient Comments: multivitamin 1 EACH tablet 1 ea PO DAILY insulin regular human 100 UNIT/ML solution 12 unit SC BID Patient Comments: afternoon and night insulin NPH isoph U-100 human 100 unit/mL suspension 20 unit SC BID Rx Instructions: 20 UNITS IN THE MORNING 12 UNITS AT BEDTIME cholecalciferol (vitamin D3) 1,000 UNIT tablet 25 mcg PO DAILY sertraline 25 MG tablet 25 mg PO DAILY calcitriol 0.25 mcg capsule 0.5 mcg PO MOWEFR allopurinol 300 mg tablet 300 mg PO DAILY amlodipine 2.5 mg tablet 2.5 mg PO DAILY torsemide 20 mg tablet 20 mg PO DAILY Daily Fiber (psyllium-aspart) 3 gram Powder In Packet 1 packet PO BID Qty: 0 0RF potassium chloride 20 mEq tablet extended release 20 meq PO DAILY Qty: 1 0RF menthol-zinc oxide [Calmoseptine] 0.44-20.6 % ointment 1 applic topical BID nystatin [Nystop] 100,000 unit/gram powder 1 applic topical BID sennosides-docusate sodium [2-in-1 Laxative] 8.6-50 mg tablet 1 tab-cap PO BID levetiracetam [Keppra] 100 mg/mL solution 500 mg PO BID isosorbide mononitrate 30 mg tablet extended release 24 hr 30 mg PO DAILY Qty: 90 4RF Primary Care Provider: Rios Downey Referrals: Rios Downey DO [Primary Care Provider] - What to do if you have Problems For any increased pain, shortness of breath, bleeding, nausea or vomiting, chestpain, or any unexpected problems, contact your Primary Care Provider. Call [facility] ([phone]) or report to the closest Emergency Room. Call 911 if necessary. 09/16/231841 <Electronically signed by Cesar Medina DO> Cosigner Signature (if applicable): CC: Dr. Rios Downey DO ~ Signed [facility] Work Phone: 1(408) 929-922610-20-2023 History and physical note Author Patricia Alcantara [facility] September 16, 2023 6:41pm Note Date/Time September 16, 2023 6 :17pm [facility] Health System Medical Records Department [address] [place] [address] H&P Exam - Hospitalist 09/16/23 1809 MR#: [id number] Acct: [id number] Name: JEAN CLAUDEJODIE Rothman Rep #:[id number] : 1940 83 From: Patricia Alcantara MD PCP: Dr. Rios Downey DO Status:REG ER Location: ED HPI - General General Date of Admission: 09/16/23 Date of Service: 09/16/23 Chief Complaint: Hypoxia, recent discharge from SNF, dyspnea. 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), Former tobacco use, CAD s/p CABG x 4, Valvular Heart Disease s/p AVR, Diabetes mellitustype II, Anxiety and Depression, recent admission 08/18/23 with confusion/aphasia/L sided facial droop discharged on 08/22/23 with CVA ruled out with recommendation for ongoing outpatient evaluation for dementia who now re-presents to the [facility] ED on 09/16/23 with history of discharge from SNF today specifically [facility] [place] with reportedly transition to home and at home patientnoted to be hypoxic down to 77% with increased work of breathing, accessory muscle usage prompting ED transition. Even following transitioning back to bed in the ED he still notes having some mild dyspnea since ambulatory trial. He isunsure if he is weight gain or increased swelling. He does admit to orthopnea. Work-up in the ED included T95.5 Temporally, heart rate 56, BP 121/79, respiratory rate 18, 96% on 4 L increasing to 5 L chronically on 4L NC w/ ED ambulatory trial with 94%, sat down and dropped down into the 82/83%, increased to 5L., CBC with WBC 7.1, hemoglobin 10.1, MCV 101.9, platelet 130 without marked shift, BMP with chloride 112, BUN/creatinine 53/2.12, glucose 131, troponin 41, BNP 179, chest x-ray with cardiomegaly without any acute cardiopulmonary findings otherwise, EKG rate controlled atrial fibrillation without acute evidence of ischemia. [facility] Medical History Anemia Atherosclerosis of coronary artery bypass graft without angina pectoris Atherosclerosis of coronary artery of [place] heart without angina pectoris Chronic combined systolic and diastolic CHF (congestive heart failure) Chronic renal failure, stage 3 (moderate) Chronic respiratory failure with hypoxia COPD (chronic obstructive pulmonary disease) Essential (primary) hypertension Former smoker Hyperlipemia Left bundle branch block Lymphedema Morbid obesity with BMI of 45.0-49.9, adult Non-rheumatic aortic stenosis Obstructive sleep apnea Ocular migraine AUTUMN treated with BiPAP PAF (paroxysmal atrial fibrillation) TIA (transient ischemic attack) Type 2 diabetes mellitus without complications Venous insufficiency of both lower extremities Home Medications aspirin 81 mg tablet,delayed release 81 mg PO DAILY HEART HEALTH 07/11/16 [History Last Taken 07/03/23] multivitamin 1 ea PO DAILY HEALTH MAINTENANCE 07/11/16 [History Last Taken 08/18/23] insulin regular human 100 unit/mL injection solution 12 unit subcut BID [id number] [History Last Taken 07/02/23] cholecalciferol (vitamin D3) 25 mcg (1,000 unit) tablet 25 mcg PO DAILY SUPPLEMENT 10/26/16 [History Last Taken 08/18/23] sertraline 25 mg tablet 25 mg PO DAILY DEPRESSION 01/10/18 [History Last Taken 08/18/23] insulin NPH isoph U-100 human 100 unit/mL subcutaneous suspension 20 unit subcutBID DIABETES 03/08/18 [History Last Taken 07/03/23] famotidine 20 mg tablet 20 mg PO DAILY GERD 11/13/19 [History Last Taken 08/18/23] olanzapine 2.5 mg tablet 2.5 mg PO QHS DEPRESSION 11/13/19 [History Last Taken 08/17/23] allopurinol 300 mg tablet 300 mg PO DAILY GOUT 12/07/21 [History Last Taken 08/18/23] apixaban 2.5 mg tablet (Eliquis) 2.5 mg PO BID BLOOD THINNER 10/07/22 [History Last Taken 07/03/23] calcitriol 0.25 mcg capsule 0.5 mcg PO MOWEFR SUPPLEMENT 10/07/22 [History Last Taken 08/17/23] isosorbide mononitrate 30 mg tablet,extended release 24 hr 30 mg PO DAILY HEART #90 tabs 02/01/23 [Rx Last Taken 08/18/23] potassium chloride 20 mEq tablet,extended release 20 meq PO DAILY potassium #1 TAB 07/03/23 [Rx Last Taken Unknown] psyllium husk (aspartame) 3 gram oral powder packet (Daily Fiber (psyllium-aspartame)) 1 packet PO BID constipation #0 ea 07/03/23 [Rx Last Taken 07/03/23] levetiracetam 100 mg/mL oral solution (Keppra) 500 mg PO BID 08/18/23 [History Last Taken 08/18/23] menthol 0.44 %-zinc oxide 20.6 % topical ointment (Calmoseptine) 1 applic topical BID 08/18/23 [History Last Taken 08/18/23] nystatin 100,000 unit/gram topical powder (Nystop) 1 applic topical BID 08/18/23[History Last Taken 08/18/23] sennosides 8.6 mg-docusate sodium 50 mg tablet (2-in-1 Laxative) 1 tab-cap PO BID 08/18/23 [History Last Taken 08/18/23] amlodipine 2.5 mg tablet 2.5 mg PO DAILY 09/16/23 [History Last Taken Unknown] torsemide 20 mg tablet 20 mg PO DAILY 09/16/23 [History Last Taken Unknown] Allergy/AdvReac Type Severity Reaction Status Date / Time Penicillins [PCN] Allergy Swelling Verified 09/16/23 15:20 Family History Father Myocardial infarction Mother CVA (cerebral vascular accident) Brother CAD (coronary artery disease) Diabetes Surgical History H/O aortic valve replacement (02/24/16) H/O coronary artery bypass surgery (02/24/16) Hx of cholecystectomy (01/13/17) Social History household members: family and other details: Granddaughter. Smoking Status: Former smoker how long ago did patient quit smokin + years alcohol intake: never substance use type: does not use caffeine: Yes Type: carbonated beverages and tea ROS ROS Narrative Admission Review of Systems: CONSTITUTIONAL: No weight loss, fever, chills, + weakness or fatigue. HEENT: Eyes: No visual loss, blurred vision, double vision or yellow sclerae. Ears, Nose, Throat: No hearing loss, sneezing, congestion, runny nose or sore throat. SKIN: + Various abrasions, chronic venous stasis skin changes bilateral lower extremity, staged ecchymoses CARDIOVASCULAR: + Orthopnea, chronic BL LE edema. No chest pain, chest pressure or chest discomfort, palpitations, syncopal events. RESPIRATORY: + Shortness of breath. No cough or sputum, wheezing, hemoptysis. GASTROINTESTINAL: No anorexia, nausea, vomiting or diarrhea, abdominal pain, melena, BRBPR. GENITOURINARY: No dysuria, frequency, urgency or retention. NEUROLOGICAL: + Chronic memory impairment with ongoing outpatient dementia evaluation, seizure disorder. No headache, dizziness, syncope, paralysis, ataxia, numbness or tingling in the extremities, focal weakness, change in bowel or bladder control, seizure. MUSCULOSKELETAL: + muscle, back pain, joint pain or stiffness. HEMATOLOGIC: + anemia, easy bleeding or bruising. LYMPHATICS: No enlarged nodes. No history of splenectomy. PSYCHIATRIC: + history of depression or anxiety. ENDOCRINOLOGIC: No reports of sweating, cold or heat intolerance. No polyuria or polydipsia. ALLERGIES: + history of rhinitis. Vital Signs Vital Signs Vital Signs: 09/16/23 15:20 09/16/23 16:12 09/16/23 16:13 Temperature 95.5 F L Temperature Source Temporal Pulse Rate 56 L 52 L Respiratory Rate 18 17 Respiratory Effort Short of Breath Labored Respiratory Depth Normal Respiratory Pattern Normal Blood Pressure 121/79 H 137/74 H Blood Pressure Mean 93 95 Pulse Ox 96 98 Oxygen Delivery Method Nasal Cannula Nasal Cannula Nasal Cannula Oxygen Flow Rate (L/min) 4 5 5 09/16/23 16:39 Temperature Temperature Source Pulse Rate Respiratory Rate Respiratory Effort Respiratory Depth Respiratory Pattern Blood Pressure Blood Pressure Mean Pulse Ox 98 Oxygen Delivery Method Nasal Cannula Oxygen Flow Rate (L/min) 5 Weight Weight: 261 lb 9.6 oz Body Mass Index (BMI) 43.5 Physical Exam Narrative Physical Examination: General: Awake, alert, oriented to self but does have significant memory impairment and this is stable chronic, following commands, notes still some mild dyspnea but more comfortable, seated upright in the ED bed. Skin: Normal color, normal turgor, no icterus, no cyanosis except very staged ecchymoses especially to the extremities, anterior cifuentes abrasions, very staged ecchymotic changes. HEENT: AT/NC, EOMI, PERRLA, MMM, no carotid bruits, thickened neck makes evaluation difficult for JVD as well as facial hair. Lungs: Markedly diminished, greater bases, no evidence of any respiratory distress, no rales, ronchi or wheezing. Heart: Irregular, rate controlled; no gallop, rub audible, + SM. Abdomen: Soft, morbidly obese, NTTP, distant BS, difficult to assess distention and HSM given habitus. Extremities: No cyanosis, no clubbing, chronic bilateral lower extremity lymphedema, pitting, see skin. Neurological: Awake, alert, oriented to self but does have significant memory impairment and this is stable chronic, following commands, notes still some mild dyspnea but more comfortable, seated upright in the ED bed, cognitive function currently stable with chronic underlying memory impairment with ongoing dementia evaluation outpatient, pupils equally reactive to light and accommodation, cranial nerves appear grossly normal, moving all extremities, strength severely global decrease secondary to acute presentation complaints and underlying comorbidities. Psychiatric: Affect appears flat, fatigued, no acute evidence of depressive or anxiety feelings but does have underlying history. Results Lab / Micro Data 09/16/23 16:51 09/16/23 16:51 Labs: Laboratory Results - last 24 hr 09/16/23 16:51: WBC 7.1, RBC 3.16 L, Hgb 10.1 L, Hct 32.2 L, MCV 101.9 H, MCH 32.0, MCHC 31.4 L, RDW Std Deviation 60.7 H, RDW Coeff of Yeny 16.4 H, Plt Count 130 L, MPV 11.2, Immature Gran % (Auto) 0.700, Neut % (Auto) 68.1, Lymph % (Auto) 19.0, Dyer % (Auto) 8.1, Eos % (Auto) 3.7, Baso % (Auto) 0.4, Absolute Neuts (auto) 4.8, Absolute Lymphs (auto) 1.34, Nucleated RBC % 0, Sodium 141, Potassium 4.8, Chloride 112 H, Carbon Dioxide 22.0, Anion Gap 7, BUN 53 H, Creatinine 2.12 H, Estim Creat Clear Calc 23.37, Est GFR (MDRD) Af Amer 39 L, Est GFR (MDRD) Non-Af 32 L, BUN/Creatinine Ratio 25.0 H, Glucose 131 H, Calcium 8.8, Troponin I High Sens 41, B-Natriuretic Peptide 179.0 H Radiology Impression Chest X-Ray 09/16/23 16:40 IMPRESSION: Cardiomegaly without radiographic evidence of acute cardiopulmonary disease. Electronically Signed: Vincent Underwood MD at 17:04 EDT , Assessment & Plan Assessment/Plan (1) Acute exacerbation of CHF (congestive heart failure): PLAN: Plan The patient is an 83 y/o M w/ PMHx: CKD stage IV, HTN, HLD, Anxiety and Depression, Morbid Obesity, Seizure disorder, PAF, GERD, Combined Chronic CHF, AUTUMN on BIPAP, COPD with Chronic Hypoxic Respiratory Failure (4L NC), Former tobacco use, CAD s/p CABG x 4, Valvular Heart Disease s/p AVR, Diabetes mellitus type II, Anxiety and Depression, recent admission 08/18/23 with confusion/aphasia/L sided facial droop discharged on 08/22/23 with CVA ruled out with recommendation for ongoing outpatient evaluation for dementia who now re-presents to the [facility] ED on 09/16/23 with history of discharge from SNF today specifically [facility] [place] with reportedly transition to home and at home patient noted to be hypoxic down to 77% with increased work of breathing, accessory muscle usage prompting ED transition. #1. Acute Hypoxia on Chronic secondary to Decompensated Systolic/Diastolic CHF (Combined): Will admit to PCU, maintain on cardiac telemetry, obtain cardiac enzyme series, obtain serial EKGs, continue IV lasix diuresis, monitor I/Os, maintain on intake restriction, continue medical therapy, recent normal TSH and recent FLP obtained during prior CVA evaluation admission thus defer repeat, will obtain mag level. Most recent echocardiogram 06/29/2023 with normal LV size, EF 40%, mild to moderate TVI, PASP 44 mmHg, bubbles contrast adding negative, bioprosthetic aortic valve without concerning findings thus will not repeat. Will place neck Dionna wraps. PT/OT/outsole caser consultation for discharge planning. To be cautious however will obtain full respiratory viral panel, COVID PCR and procalcitonin. #2. Recent CVA evaluation, CVA ruled out with suspected underlying dementia, complicates presentation: Recent admission with unremarkable MRI, no marked carotid disease, echocardiogram had recently been performed with negative bubble study this had not been repeated during that presentation eventually improving with suspected underlying likely dementia with recommended outpatient ongoing evaluation and work-up. PT/OT/case management consulted for discharge planning as noted. #3. Seizure disorder: We will continue patient home Keppra regimen. #4. Hypertension: As noted will pulse dose IV Lasix and is clinically improved transition back to oral regimen, continue isosorbide, as needed IV hydralazine. #5. Hyperlipidemia: We will continue patient on statin therapy. #6. CKD stage IV: Chronic Kidney Disease Stage: Admission BUN/Cr 53/2.12, baseline renal function 2.2-2.5 primarily more recently, repeat BMP in AM. #7. PAF: Will continue patient home apixaban regimen, not on rate or rhythm agent #8. 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 #9. CAD s/p CABG x 4, will continue patient home aspirin, apixaban, statin, not on beta-josey for unclear reasons however also not on DIONNA inhibitor/ARB likely secondary to renal disease. #10. Valvular Heart Disease: s/p AVR, 06/29/2023 echocardiogram with normal LV size, EF 40%, mild to moderate TVI, PASP 44 mmHg with a negative bubble contrast study and appropriate appearing bioprosthetic aortic valve. #11. Diabetes mellitus type II: Hold oral home regimen, will continue long- acting insulin regimen, maintain on ADA diet with accu checks with ISS. #12. Anxiety and depression: We will continue patient home olanzapine and sertraline home regimen. #13. Morbid Obesity: Weight loss and lifestyle changes encouraged. #14. Former tobacco use: Encourage continued tobacco cessation. #15. GERD: We will continue patient on famotidine regimen. #16. AUTUMN: BIPAP q HS. #17. DVT prophylaxis: We will continue patient home Eliquis regimen. #18. CODE status: DNR-CCA, no intubation status. Charges/Coding Visit Charges Inpatient E&M: 09755 Init Hosp L3 09/16/23 1841 <Electronically signed by Patricia Alcantara MD> Cosigner Signature (if applicable): CC: Dr. Patricia Alcantara MD; Dr. Rios Downey, ~ Signed [facility] Work Phone: [phone] 368-842110-20-2023 History and physical note Author Patricia Alcantara [facility] September 16, 2023 6:41pm Note Date/Time September 16, 2023 6 :17pm [facility] Medical Records Department [address] [place] [address] H&P Exam - Hospitalist 09/16/23 180 MR#: [id number] Acct: [id number] Name: JODIE CARDENAS Rep #:[id number] : 1940 83 From: Patricia Alcantara MD PCP: Dr. Rios Downey, DO Status:REG ER Location: ED HPI - General General Date of Admission: 09/16/23 Date of Service: 09/16/23 Chief Complaint: Hypoxia, recent discharge from SNF, dyspnea. 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), Former tobacco use, CAD s/p CABG x 4, Valvular Heart Disease s/p AVR, Diabetes mellitustype II, Anxiety and Depression, recent admission 08/18/23 with confusion/aphasia/L sided facial droop discharged on 08/22/23 with CVA ruled out with recommendation for ongoing outpatient evaluation for dementia who now re-presents to the [facility] ED on 09/16/23 with history of discharge from SNF today specifically [facility] [place] with reportedly transition to home and at home patientnoted to be hypoxic down to 77% with increased work of breathing, accessory muscle usage prompting ED transition. Even following transitioning back to bed in the ED he still notes having some mild dyspnea since ambulatory trial. He isunsure if he is weight gain or increased swelling. He does admit to orthopnea. Work-up in the ED included T95.5 Temporally, heart rate 56, BP 121/79, respiratory rate 18, 96% on 4 L increasing to 5 L chronically on 4L NC w/ ED ambulatory trial with 94%, sat down and dropped down into the 82/83%, increased to 5L., CBC with WBC 7.1, hemoglobin 10.1, MCV 101.9, platelet 130 without marked shift, BMP with chloride 112, BUN/creatinine 53/2.12, glucose 131, troponin 41, BNP 179, chest x-ray with cardiomegaly without any acute cardiopulmonary findings otherwise, EKG rate controlled atrial fibrillation without acute evidence of ischemia. [facility] Medical History Anemia Atherosclerosis of coronary artery bypass graft without angina pectoris Atherosclerosis of coronary artery of [place] heart without angina pectoris Chronic combined systolic and diastolic CHF (congestive heart failure) Chronic renal failure, stage 3 (moderate) Chronic respiratory failure with hypoxia COPD (chronic obstructive pulmonary disease) Essential (primary) hypertension Former smoker Hyperlipemia Left bundle branch block Lymphedema Morbid obesity with BMI of 45.0-49.9, adult Non-rheumatic aortic stenosis Obstructive sleep apnea Ocular migraine AUTUMN treated with BiPAP PAF (paroxysmal atrial fibrillation) TIA (transient ischemic attack) Type 2 diabetes mellitus without complications Venous insufficiency of both lower extremities Home Medications aspirin 81 mg tablet,delayed release 81 mg PO DAILY HEART HEALTH 07/11/16 [History Last Taken 07/03/23] multivitamin 1 ea PO DAILY HEALTH MAINTENANCE 07/11/16 [History Last Taken 08/18/23] insulin regular human 100 unit/mL injection solution 12 unit subcut BID [id number]/16 [History Last Taken 07/02/23] cholecalciferol (vitamin D3) 25 mcg (1,000 unit) tablet 25 mcg PO DAILY SUPPLEMENT 10/26/16 [History Last Taken 08/18/23] sertraline 25 mg tablet 25 mg PO DAILY DEPRESSION 01/10/18 [History Last Taken 08/18/23] insulin NPH isoph U-100 human 100 unit/mL subcutaneous suspension 20 unit subcutBID DIABETES 03/08/18 [History Last Taken 07/03/23] famotidine 20 mg tablet 20 mg PO DAILY GERD 11/13/19 [History Last Taken 08/18/23] olanzapine 2.5 mg tablet 2.5 mg PO QHS DEPRESSION 11/13/19 [History Last Taken 08/17/23] allopurinol 300 mg tablet 300 mg PO DAILY GOUT 12/07/21 [History Last Taken 08/18/23] apixaban 2.5 mg tablet (Eliquis) 2.5 mg PO BID BLOOD THINNER 10/07/22 [History Last Taken 07/03/23] calcitriol 0.25 mcg capsule 0.5 mcg PO MOWEFR SUPPLEMENT 10/07/22 [History Last Taken 08/17/23] isosorbide mononitrate 30 mg tablet,extended release 24 hr 30 mg PO DAILY HEART #90 tabs 02/01/23 [Rx Last Taken 08/18/23] potassium chloride 20 mEq tablet,extended release 20 meq PO DAILY potassium #1 TAB 07/03/23 [Rx Last Taken Unknown] psyllium husk (aspartame) 3 gram oral powder packet (Daily Fiber (psyllium-aspartame)) 1 packet PO BID constipation #0 ea 07/03/23 [Rx Last Taken 07/03/23] levetiracetam 100 mg/mL oral solution (Keppra) 500 mg PO BID 08/18/23 [History Last Taken 08/18/23] menthol 0.44 %-zinc oxide 20.6 % topical ointment (Calmoseptine) 1 applic topical BID 08/18/23 [History Last Taken 08/18/23] nystatin 100,000 unit/gram topical powder (Nystop) 1 applic topical BID 08/18/23[History Last Taken 08/18/23] sennosides 8.6 mg-docusate sodium 50 mg tablet (2-in-1 Laxative) 1 tab-cap PO BID 08/18/23 [History Last Taken 08/18/23] amlodipine 2.5 mg tablet 2.5 mg PO DAILY 09/16/23 [History Last Taken Unknown] torsemide 20 mg tablet 20 mg PO DAILY 09/16/23 [History Last Taken Unknown] Allergy/AdvReac Type Severity Reaction Status Date / Time Penicillins [PCN] Allergy Swelling Verified 09/16/23 15:20 Family History Father Myocardial infarction Mother CVA (cerebral vascular accident) Brother CAD (coronary artery disease) Diabetes Surgical History H/O aortic valve replacement (02/24/16) H/O coronary artery bypass surgery (02/24/16) Hx of cholecystectomy (01/13/17) Social History household members: family and other details: Granddaughter. Smoking Status: Former smoker how long ago did patient quit smokin + years alcohol intake: never substance use type: does not use caffeine: Yes Type: carbonated beverages and tea ROS ROS Narrative Admission Review of Systems: CONSTITUTIONAL: No weight loss, fever, chills, + weakness or fatigue. HEENT: Eyes: No visual loss, blurred vision, double vision or yellow sclerae. Ears, Nose, Throat: No hearing loss, sneezing, congestion, runny nose or sore throat. SKIN: + Various abrasions, chronic venous stasis skin changes bilateral lower extremity, staged ecchymoses CARDIOVASCULAR: + Orthopnea, chronic BL LE edema. No chest pain, chest pressure or chest discomfort, palpitations, syncopal events. RESPIRATORY: + Shortness of breath. No cough or sputum, wheezing, hemoptysis. GASTROINTESTINAL: No anorexia, nausea, vomiting or diarrhea, abdominal pain, melena, BRBPR. GENITOURINARY: No dysuria, frequency, urgency or retention. NEUROLOGICAL: + Chronic memory impairment with ongoing outpatient dementia evaluation, seizure disorder. No headache, dizziness, syncope, paralysis, ataxia, numbness or tingling in the extremities, focal weakness, change in bowel or bladder control, seizure. MUSCULOSKELETAL: + muscle, back pain, joint pain or stiffness. HEMATOLOGIC: + anemia, easy bleeding or bruising. LYMPHATICS: No enlarged nodes. No history of splenectomy. PSYCHIATRIC: + history of depression or anxiety. ENDOCRINOLOGIC: No reports of sweating, cold or heat intolerance. No polyuria or polydipsia. ALLERGIES: + history of rhinitis. Vital Signs Vital Signs Vital Signs: 09/16/23 15:20 09/16/23 16:12 09/16/23 16:13 Temperature 95.5 F L Temperature Source Temporal Pulse Rate 56 L 52 L Respiratory Rate 18 17 Respiratory Effort Short of Breath Labored Respiratory Depth Normal Respiratory Pattern Normal Blood Pressure 121/79 H 137/74 H Blood Pressure Mean 93 95 Pulse Ox 96 98 Oxygen Delivery Method Nasal Cannula Nasal Cannula Nasal Cannula Oxygen Flow Rate (L/min) 4 5 5 09/16/23 16:39 Temperature Temperature Source Pulse Rate Respiratory Rate Respiratory Effort Respiratory Depth Respiratory Pattern Blood Pressure Blood Pressure Mean Pulse Ox 98 Oxygen Delivery Method Nasal Cannula Oxygen Flow Rate (L/min) 5 Weight Weight: 261 lb 9.6 oz Body Mass Index (BMI) 43.5 Physical Exam Narrative Physical Examination: General: Awake, alert, oriented to self but does have significant memory impairment and this is stable chronic, following commands, notes still some mild dyspnea but more comfortable, seated upright in the ED bed. Skin: Normal color, normal turgor, no icterus, no cyanosis except very staged ecchymoses especially to the extremities, anterior cifuentes abrasions, very staged ecchymotic changes. HEENT: AT/NC, EOMI, PERRLA, MMM, no carotid bruits, thickened neck makes evaluation difficult for JVD as well as facial hair. Lungs: Markedly diminished, greater bases, no evidence of any respiratory distress, no rales, ronchi or wheezing. Heart: Irregular, rate controlled; no gallop, rub audible, + SM. Abdomen: Soft, morbidly obese, NTTP, distant BS, difficult to assess distention and HSM given habitus. Extremities: No cyanosis, no clubbing, chronic bilateral lower extremity lymphedema, pitting, see skin. Neurological: Awake, alert, oriented to self but does have significant memory impairment and this is stable chronic, following commands, notes still some mild dyspnea but more comfortable, seated upright in the ED bed, cognitive function currently stable with chronic underlying memory impairment with ongoing dementia evaluation outpatient, pupils equally reactive to light and accommodation, cranial nerves appear grossly normal, moving all extremities, strength severely global decrease secondary to acute presentation complaints and underlying comorbidities. Psychiatric: Affect appears flat, fatigued, no acute evidence of depressive or anxiety feelings but does have underlying history. Results Lab / Micro Data 09/16/23 16:51 09/16/23 16:51 Labs: Laboratory Results - last 24 hr 09/16/23 16:51: WBC 7.1, RBC 3.16 L, Hgb 10.1 L, Hct 32.2 L, MCV 101.9 H, MCH 32.0, MCHC 31.4 L, RDW Std Deviation 60.7 H, RDW Coeff of Yeny 16.4 H, Plt Count 130 L, MPV 11.2, Immature Gran % (Auto) 0.700, Neut % (Auto) 68.1, Lymph % (Auto) 19.0, Dyer % (Auto) 8.1, Eos % (Auto) 3.7, Baso % (Auto) 0.4, Absolute Neuts (auto) 4.8, Absolute Lymphs (auto) 1.34, Nucleated RBC % 0, Sodium 141, Potassium 4.8, Chloride 112 H, Carbon Dioxide 22.0, Anion Gap 7, BUN 53 H, Creatinine 2.12 H, Estim Creat Clear Calc 23.37, Est GFR (MDRD) Af Amer 39 L, Est GFR (MDRD) Non-Af 32 L, BUN/Creatinine Ratio 25.0 H, Glucose 131 H, Calcium 8.8, Troponin I High Sens 41, B-Natriuretic Peptide 179.0 H Radiology Impression Chest X-Ray 09/16/23 16:40 IMPRESSION: Cardiomegaly without radiographic evidence of acute cardiopulmonary disease. Electronically Signed: Vincent Underwood MD at 17:04 EDT , Assessment & Plan Assessment/Plan (1) Acute exacerbation of CHF (congestive heart failure): PLAN: Plan The patient is an 83 y/o M w/ PMHx: CKD stage IV, HTN, HLD, Anxiety and Depression, Morbid Obesity, Seizure disorder, PAF, GERD, Combined Chronic CHF, AUTUMN on BIPAP, COPD with Chronic Hypoxic Respiratory Failure (4L NC), Former tobacco use, CAD s/p CABG x 4, Valvular Heart Disease s/p AVR, Diabetes mellitus type II, Anxiety and Depression, recent admission 08/18/23 with confusion/aphasia/L sided facial droop discharged on 08/22/23 with CVA ruled out with recommendation for ongoing outpatient evaluation for dementia who now re-presents to the [facility] ED on 09/16/23 with history of discharge from SNF today specifically [facility] [place] with reportedly transition to home and at home patient noted to be hypoxic down to 77% with increased work of breathing, accessory muscle usage prompting ED transition. #1. Acute Hypoxia on Chronic secondary to Decompensated Systolic/Diastolic CHF (Combined): Will admit to PCU, maintain on cardiac telemetry, obtain cardiac enzyme series, obtain serial EKGs, continue IV lasix diuresis, monitor I/Os, maintain on intake restriction, continue medical therapy, recent normal TSH and recent FLP obtained during prior CVA evaluation admission thus defer repeat, will obtain mag level. Most recent echocardiogram 06/29/2023 with normal LV size, EF 40%, mild to moderate TVI, PASP 44 mmHg, bubbles contrast adding negative, bioprosthetic aortic valve without concerning findings thus will not repeat. Will place neck Dionna wraps. PT/OT/outsole caser consultation for discharge planning. To be cautious however will obtain full respiratory viral panel, COVID PCR and procalcitonin. #2. Recent CVA evaluation, CVA ruled out with suspected underlying dementia, complicates presentation: Recent admission with unremarkable MRI, no marked carotid disease, echocardiogram had recently been performed with negative bubble study this had not been repeated during that presentation eventually improving with suspected underlying likely dementia with recommended outpatient ongoing evaluation and work-up. PT/OT/case management consulted for discharge planning as noted. #3. Seizure disorder: We will continue patient home Keppra regimen. #4. Hypertension: As noted will pulse dose IV Lasix and is clinically improved transition back to oral regimen, continue isosorbide, as needed IV hydralazine. #5. Hyperlipidemia: We will continue patient on statin therapy. #6. CKD stage IV: Chronic Kidney Disease Stage: Admission BUN/Cr 53/2.12, baseline renal function 2.2-2.5 primarily more recently, repeat BMP in AM. #7. PAF: Will continue patient home apixaban regimen, not on rate or rhythm agent #8. 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 #9. CAD s/p CABG x 4, will continue patient home aspirin, apixaban, statin, not on beta-josey for unclear reasons however also not on DIONNA inhibitor/ARB likely secondary to renal disease. #10. Valvular Heart Disease: s/p AVR, 06/29/2023 echocardiogram with normal LV size, EF 40%, mild to moderate TVI, PASP 44 mmHg with a negative bubble contrast study and appropriate appearing bioprosthetic aortic valve. #11. Diabetes mellitus type II: Hold oral home regimen, will continue long- acting insulin regimen, maintain on ADA diet with accu checks with ISS. #12. Anxiety and depression: We will continue patient home olanzapine and sertraline home regimen. #13. Morbid Obesity: Weight loss and lifestyle changes encouraged. #14. Former tobacco use: Encourage continued tobacco cessation. #15. GERD: We will continue patient on famotidine regimen. #16. AUTUMN: BIPAP q HS. #17. DVT prophylaxis: We will continue patient home Eliquis regimen. #18. CODE status: DNR-CCA, no intubation status. Charges/Coding Visit Charges Inpatient E&M: 42389 Init Hosp L3 09/16/23 1841 <Electronically signed by Patricia Alcantara MD> Cosigner Signature (if applicable): CC: Dr. Patricia Alcantara MD; Dr. Rios Downey DO~ Signed [facility] Work Phone: 1(170) 695-817710-20-2023 Discharge summary Author Cesar Medina [facility] September 16, 2023 6:42pm Note Date/Time September 16, 2023 6 :42pm [facility] Health System Medical Records Department [address] [place] [address] Emergency Department Summary 09/16/23 MR#: [id number] Acct: [id number] Name: JODIE CARDENAS Rep #:[id number] : 1940 83 From: Cesar Medina DO PCP: Dr. Rios Downey DO Status:REG ER Location: ED HPI History of Present Illness Chief Complaint: Shortness of Breath Narrative Narrative: 83-year-old male with history of CHF, A-fib, CKD, CAD, diabetes, hypertension, sleep apnea presenting with hypoxic episode. Patient was recently inpatient at [facility] for what sounds like about a month. He was discharged to a shelter facility where he just left today. His daughter states that they were walking to the store and he was working to breathe and she put a pulseox on him and noted that he was in the upper 70s on his pulse ox. He normally wears 4 L when ambulating and 2 L when sitting. They presented to the ED for evaluation. He does state that when he was at the custodial he was huffing and puffing when he was walking but not like today. He states that they change his Lasix to torsemide while he was at the shelter facility he is not sure why they did this. They also put him on potassium. 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 angina pectoris Atherosclerosis of coronary artery of [place] heart without angina pectoris Chronic combined systolic and diastolic CHF (congestive heart failure) Chronic renal failure, stage 3 (moderate) Chronic respiratory failure with hypoxia COPD (chronic obstructive pulmonary disease) Essential (primary) hypertension Former smoker Hyperlipemia Left bundle branch block Lymphedema Morbid obesity with BMI of 45.0-49.9, adult Non-rheumatic aortic stenosis Obstructive sleep apnea Ocular migraine AUTUMN treated with BiPAP PAF (paroxysmal atrial fibrillation) TIA (transient ischemic attack) Type 2 diabetes mellitus without complications Venous insufficiency of both lower extremities Home Medications aspirin 81 mg tablet,delayed release 81 mg PO DAILY HEART HEALTH 07/11/16 [History Last Taken 07/03/23] multivitamin 1 ea PO DAILY HEALTH MAINTENANCE 07/11/16 [History Last Taken 08/18/23] insulin regular human 100 unit/mL injection solution 12 unit subcut BID [id number]/27/16 [History Last Taken 07/02/23] cholecalciferol (vitamin D3) 25 mcg (1,000 unit) tablet 25 mcg PO DAILY SUPPLEMENT 10/26/16 [History Last Taken 08/18/23] sertraline 25 mg tablet 25 mg PO DAILY DEPRESSION 01/10/18 [History Last Taken 08/18/23] insulin NPH isoph U-100 human 100 unit/mL subcutaneous suspension 20 unit subcutBID DIABETES 03/08/18 [History Last Taken 07/03/23] famotidine 20 mg tablet 20 mg PO DAILY GERD 11/13/19 [History Last Taken 08/18/23] olanzapine 2.5 mg tablet 2.5 mg PO QHS DEPRESSION 11/13/19 [History Last Taken 08/17/23] allopurinol 300 mg tablet 300 mg PO DAILY GOUT 12/07/21 [History Last Taken 08/18/23] apixaban 2.5 mg tablet (Eliquis) 2.5 mg PO BID BLOOD THINNER 10/07/22 [History Last Taken 07/03/23] calcitriol 0.25 mcg capsule 0.5 mcg PO MOWEFR SUPPLEMENT 10/07/22 [History Last Taken 08/17/23] isosorbide mononitrate 30 mg tablet,extended release 24 hr 30 mg PO DAILY HEART #90 tabs 02/01/23 [Rx Last Taken 08/18/23] potassium chloride 20 mEq tablet,extended release 20 meq PO DAILY potassium #1 TAB 07/03/23 [Rx Last Taken Unknown] psyllium husk (aspartame) 3 gram oral powder packet (Daily Fiber (psyllium-aspartame)) 1 packet PO BID constipation #0 ea 07/03/23 [Rx Last Taken 07/03/23] levetiracetam 100 mg/mL oral solution (Keppra) 500 mg PO BID 08/18/23 [History Last Taken 08/18/23] menthol 0.44 %-zinc oxide 20.6 % topical ointment (Calmoseptine) 1 applic topical BID 08/18/23 [History Last Taken 08/18/23] nystatin 100,000 unit/gram topical powder (Nystop) 1 applic topical BID 08/18/23[History Last Taken 08/18/23] sennosides 8.6 mg-docusate sodium 50 mg tablet (2-in-1 Laxative) 1 tab-cap PO BID 08/18/23 [History Last Taken 08/18/23] amlodipine 2.5 mg tablet 2.5 mg PO DAILY 09/16/23 [History Last Taken Unknown] torsemide 20 mg tablet 20 mg PO DAILY 09/16/23 [History Last Taken Unknown] Allergy/AdvReac Type Severity Reaction Status Date / Time Penicillins [PCN] Allergy Swelling Verified 09/16/23 15:20 Family History Father Myocardial infarction Mother CVA (cerebral vascular accident) Brother CAD (coronary artery disease) Diabetes Surgical History H/O aortic valve replacement (02/24/16) H/O coronary artery bypass surgery (02/24/16) Hx of cholecystectomy (01/13/17) Social History household members: family and other details: Granddaughter. Smoking Status: Former smoker how long ago did patient quit smokin + years alcohol intake: never substance use type: does not use caffeine: Yes Type: carbonated beverages and tea ROS ROS ED Constitutional Constitutional ED: Denies chills, fever(s) or sweats Eyes Eyes: Denies blurry vision or change in vision ENT ENT ED: Denies ear pain or sore throat Cardiovascular Cardiovascular: Reports orthopnea; Denies chest pain, palpitations or racing heartbeat Respiratory/Chest Respiratory/Chest: Reports dyspnea, dyspnea on exertion and orthopnea; Denies sputum Gastrointestinal Gastrointestinal: Denies constipation, diarrhea, nausea or vomiting Genitourinary Genitourinary ED: Denies dysuria, hematuria or urinary frequency Musculoskeletal Musculoskeletal: Denies arthralgias, myalgias or neck pain Integumentary Denies abscess, Abrasions or rash Neurologic Neurologic: Denies headache(s), paresthesias or weakness Psychiatric Psychiatric: Denies anxiety, depression, suicidal ideation or suicidal thoughts Endocrine Endocrinology: Denies polydipsia or polyuria EXAM Physical Exam Const Vital Signs: 09/16/23 15:20 09/16/23 16:12 09/16/23 16:13 Temperature 95.5 F L Temperature Source Temporal Pulse Rate 56 L 52 L Respiratory Rate 18 17 Respiratory Effort Short of Breath Labored Respiratory Depth Normal Respiratory Pattern Normal Blood Pressure 121/79 H 137/74 H Blood Pressure Mean 93 95 Pulse Ox 96 98 Oxygen Delivery Method Nasal Cannula Nasal Cannula Nasal Cannula Oxygen Flow Rate (L/min) 4 5 5 09/16/23 16:39 Temperature Temperature Source Pulse Rate Respiratory Rate Respiratory Effort Respiratory Depth Respiratory Pattern Blood Pressure Blood Pressure Mean Pulse Ox 98 Oxygen Delivery Method Nasal Cannula Oxygen Flow Rate (L/min) 5 Positive well nourished and obese General Appearance ED: NAD Nutritional Appearance: obese HEENT Reports moist mucous membranes Eyes PERRL and EOMs intact bilaterally Neck no lymphadenopathy Resp normal respiratory effort Resp Narrative: Bibasilar crackles. Cardio regular rhythm Rate: bradycardia GI non-tender Extremity General Extremety ED: Yes edema General Extremity: edema Neuro oriented x3 and CN's II-XII intact bilaterally Motor Exam: strength 5/5 throughout Psych mental status grossly normal MDM MDM MDM Narrative Medical decision making narrative: 83-year-old male presenting with shortness of breath. He has bibasilar crackles on exam. He has lower extremity edema and history of heart failure I suspect that is what he is in today. Differential includes ACS, pneumonia, dehydration, electrolyte abnormalities, anemia. CBC was obtained to assess white blood cell count, hemoglobin, platelets. BMP to assess renal function and electrolytes. High-sensitivity troponin and EKG were obtained to assess for cardiac dysrhythmia and ischemia. BNP to assess for CHF. EKG on my interpretation shows what appears to be A-fib at 51 bpm. Chest x-ray my interpretation cardiomegaly but no significant pulmonary vascular congestion. CBC shows normal white blood cell count of 7.1. Hemoglobin 10.1 and at baseline. Electrolytes are unremarkable. Creatinine slightly elevated today at 2.12. High-sensitivity troponin is 41 and BNP is 179. I attempted to ambulate the patient around the emergency room with his 4 L and a walker and he did fairly well for the first part of the walker after returning to the room he had severe work of breathing and his pulse ox dropped to 82 to 83% on 4 L. We sat him down and put 6 L of oxygen on him and after couple of minutes he came up to 96. At this point I think it safer to admit him to the hospital given his hypoxia his work of breathing. He is amenable to this. Discussed with hospitalist for admission. Impression: 1. Hypoxia 2. CHF Lab Data Attestation: I reviewed the patient's lab results. Labs: Laboratory Results - last 24 hr 09/16/23 16:51 WBC 7.1 RBC 3.16 L Hgb 10.1 L Hct 32.2 L MCV 101.9 H MCH 32.0 MCHC 31.4 L RDW Std Deviation 60.7 H RDW Coeff of Yeny 16.4 H Plt Count 130 L MPV 11.2 Immature Gran % (Auto) 0.700 Neut % (Auto) 68.1 Lymph % (Auto) 19.0 Dyer % (Auto) 8.1 Eos % (Auto) 3.7 Baso % (Auto) 0.4 Absolute Neuts (auto) 4.8 Absolute Lymphs (auto) 1.34 Nucleated RBC % 0 Sodium 141 Potassium 4.8 Chloride 112 H Carbon Dioxide 22.0 Anion Gap 7 BUN 53 H Creatinine 2.12 H Estim Creat Clear Calc 23.37 Est GFR (MDRD) Af Amer 39 L Est GFR (MDRD) Non-Af 32 L BUN/Creatinine Ratio 25.0 H Glucose 131 H Calcium 8.8 Troponin I High Sens 41 B-Natriuretic Peptide 179.0 H Radiography Diagnostic Testing: Clinical Impression(s) from Imaging Studies Chest X-Ray 09/16/23 16:40 IMPRESSION: Cardiomegaly without radiographic evidence of acute cardiopulmonary disease. Electronically Signed: Vincent Underwood MD at 17:04 EDT , Discharge Plan Triage Chief Complaint: Shortness of Breath ED Provider: Cesar Medina Dx/Rx/DC Orders Prescriptions: No Action famotidine 20 mg tablet 20 mg PO DAILY olanzapine 2.5 mg tablet 2.5 mg PO QHS Eliquis 2.5 mg tablet 2.5 mg PO BID aspirin 81 MG tablet,delayed release (DR/EC) 81 mg PO DAILY Patient Comments: multivitamin 1 EACH tablet 1 ea PO DAILY insulin regular human 100 UNIT/ML solution 12 unit SC BID Patient Comments: afternoon and night insulin NPH isoph U-100 human 100 unit/mL suspension 20 unit SC BID Rx Instructions: 20 UNITS IN THE MORNING 12 UNITS AT BEDTIME cholecalciferol (vitamin D3) 1,000 UNIT tablet 25 mcg PO DAILY sertraline 25 MG tablet 25 mg PO DAILY calcitriol 0.25 mcg capsule 0.5 mcg PO MOWEFR allopurinol 300 mg tablet 300 mg PO DAILY amlodipine 2.5 mg tablet 2.5 mg PO DAILY torsemide 20 mg tablet 20 mg PO DAILY Daily Fiber (psyllium-aspart) 3 gram Powder In Packet 1 packet PO BID Qty: 0 0RF potassium chloride 20 mEq tablet extended release 20 meq PO DAILY Qty: 1 0RF menthol-zinc oxide [Calmoseptine] 0.44-20.6 % ointment 1 applic topical BID nystatin [Nystop] 100,000 unit/gram powder 1 applic topical BID sennosides-docusate sodium [2-in-1 Laxative] 8.6-50 mg tablet 1 tab-cap PO BID levetiracetam [Keppra] 100 mg/mL solution 500 mg PO BID isosorbide mononitrate 30 mg tablet extended release 24 hr 30 mg PO DAILY Qty: 90 4RF Primary Care Provider: Rios Downey Referrals: Rios Downey DO [Primary Care Provider] - What to do if you have Problems For any increased pain, shortness of breath, bleeding, nausea or vomiting, chestpain, or any unexpected problems, contact your Primary Care Provider. Call [facility] ([phone]) or report to the closest Emergency Room. Call 911 if necessary. 09/16/23 1716 <Electronically signed by Cesar Medina DO> Cosigner Signature (if applicable): CC: Dr. Rios Downey DO ~ Signed [facility] Work Phone: [phone] 553-826809-25-2023 Discharge summary Author Mikey Macias [facility] August 22, 2023 12:17pm Note Date/Time August 22, 2023 12:17pm [facility] Health System Medical Records Department [address] [place] [address] Discharge Summary 08/22/23 1216 MR#: [id number] Acct: [id number] Name: JODIE CARDENAS Rep #:[id number] : 1940 83 From: Mikey Macias DO PCP: Dr. Rios Downey DO Status:ADM IN Location: [place] [address] Providers Date of Admission: 08/18/23 Primary Care Physician: Dr. Rios Downey DO Reason For Visit: LEFT SIDED FACIAL DROOP Diagnosis Discharge Diagnosis (1) Confusion: Status: Acute Code(s): R41.0 - Disorientation, unspecified Plan: Acute metabolic encephalopathy Multifactorial including patient underlying chronic hypoxic respiratory failure, obstructive sleep apnea, obesity hypoventilation syndrome,. MRI brain negative for CVA. Likely chronic fluctuation the patient does have. Recommend outpatient geriatric evaluation for possible dementia. (2) Debility: Status: Acute Code(s): R53.81 - Other malaise Plan: Patient to go back to [facility] [place]. Plan Chronic conditions * Seizure disorder?Patient is on Keppra did continue * Chronic kidney disease stage IV? Kidney function at baseline * Hypertension- Blood pressure controlled, home medications continued with dose adjustment as needed * Gout? Patient is on allopurinol continue * Dyslipidemia-Patient is on statin therapy, continued at home dose * Class II obesity with BMI of 40.1? Complicating care weight loss advised * Chronic congestive heart failure with reduced ejection fraction? Recent echo obtained on 06/29/2023 demonstrated EF of 40%. Patient remains compensated on his home dose furosemide * Paroxysmal atrial fibrillation? Rate controlled on systemic anticoagulation with apixaban continue * Obstructive sleep apnea? Consistent use of BiPAP encouraged * Obesity hypoventilation syndrome? Patient is on BiPAP at night * Diabetes mellitus type 2? 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 With previous CABG. Patient remains on guideline directed medical therapy * Depression with anxiety? Patient is on SSRI Medications at Discharge Home Medications aspirin 81 mg tablet,delayed release 81 mg PO DAILY HEART HEALTH 07/11/16 atorvastatin 40 mg tablet 40 mg PO QHS CHOLSTEROL 07/11/16 multivitamin 1 ea PO DAILY HEALTH MAINTENANCE 07/11/16 insulin regular human 100 unit/mL injection solution 25 unit subcut BID [id number]/27/16 cholecalciferol (vitamin D3) 25 mcg (1,000 unit) tablet 25 mcg PO DAILY SUPPLEMENT 10/26/16 sertraline 25 mg tablet 25 mg PO DAILY DEPRESSION 01/10/18 insulin NPH isoph U-100 human 100 unit/mL subcutaneous suspension 25 unit subcutBID DIABETES 03/08/18 famotidine 20 mg tablet 20 mg PO DAILY GERD 11/13/19 olanzapine 2.5 mg tablet 2.5 mg PO QHS DEPRESSION 11/13/19 allopurinol 300 mg tablet 150 mg PO DAILY GOUT 12/07/21 apixaban 2.5 mg tablet (Eliquis) 2.5 mg PO BID BLOOD THINNER 10/07/22 calcitriol 0.25 mcg capsule 0.5 mcg PO MOWEFR SUPPLEMENT 10/07/22 isosorbide mononitrate 30 mg tablet,extended release 24 hr 30 mg PO DAILY HEART #90 tabs 02/01/23 potassium chloride 20 mEq tablet,extended release 20 meq PO DAILY potassium #1 TAB 07/03/23 psyllium husk (aspartame) 3 gram oral powder packet (Daily Fiber (psyllium-aspartame)) 1 packet PO BID constipation #0 ea 07/03/23 doxepin 10 mg capsule 10 mg PO DAILY 08/18/23 furosemide 40 mg tablet (Lasix) 40 mg PO DAILY water pill 08/18/23 levetiracetam 100 mg/mL oral solution (Keppra) 500 mg PO BID 08/18/23 menthol 0.44 %-zinc oxide 20.6 % topical ointment (Calmoseptine) 1 applic topical BID 08/18/23 nystatin 100,000 unit/gram topical powder (Nystop) 1 applic topical BID 08/18/23 sennosides 8.6 mg-docusate sodium 50 mg tablet (2-in-1 Laxative) 1 tab-cap PO BID 08/18/23 Weight / BMI Weight Weight: 112.2 kg Body Mass Index (BMI) 41.1 ABG / Lab / Microbiology Data 08/22/23 05:15 08/22/23 05:15 Laboratory: Laboratory Results - last 24 hr 08/21/23 16:36: POC Glucose 150 H 08/21/23 21:10: POC Glucose 181 H 08/22/23 05:15: WBC 9.5, RBC 3.28 L, Hgb 10.2 L, Hct 32.2 L, MCV 98.2 H, MCH 31.1, MCHC 31.7 L, RDW Std Deviation 51.4 H, RDW Coeff of Yeny 14.2, Plt Count 137 L, MPV 10.8, Immature Gran % (Auto) 0.300, Neut % (Auto) 75.8 H, Lymph % (Auto) 16.5 L, Dyer % (Auto) 5.6, Eos % (Auto) 1.4, Baso % (Auto) 0.4, Absolute Neuts (auto) 7.2, Absolute Lymphs (auto) 1.57, Nucleated RBC % 0, Sodium 139, Potassium 4.7, Chloride 112 H, Carbon Dioxide 21.0, Anion Gap 6, BUN 46 H, Creatinine 2.51 H, Estim Creat Clear Calc 19.74, Est GFR (MDRD) Af Amer 32 L, Est GFR (MDRD) Non-Af 26 L, BUN/Creatinine Ratio 18.3, Glucose 131 H, Calcium 8.7 08/22/23 06:06: POC Glucose 124 H Meaningful Use Info Meaningful Use Diagnoses (Choose all that apply): None applicable Discharge Plan Admission Admit Date/Time: 08/18/23 14:36 Primary Reason for Your Visit: confusion Attending Provider: Mikey Macias Primary Care Provider: Rios Downey Consulting Providers: Patricia Alcantara; James Camarillo Discharge Orders/Prescriptions Prescriptions: Continued famotidine 20 mg tablet 20 mg PO DAILY olanzapine 2.5 mg tablet 2.5 mg PO QHS Eliquis 2.5 mg tablet 2.5 mg PO BID atorvastatin 40 MG tablet 40 mg PO QHS aspirin 81 MG tablet,delayed release (DR/EC) 81 mg PO DAILY Patient Comments: multivitamin 1 EACH tablet 1 ea PO DAILY insulin regular human 100 UNIT/ML solution 25 unit SC BID Patient Comments: afternoon and night insulin NPH isoph U-100 human 100 unit/mL suspension 25 unit SC BID cholecalciferol (vitamin D3) 1,000 UNIT tablet 25 mcg PO DAILY sertraline 25 MG tablet 25 mg PO DAILY calcitriol 0.25 mcg capsule 0.5 mcg PO MOWEFR allopurinol 300 mg tablet 150 mg PO DAILY Daily Fiber (psyllium-aspart) 3 gram Powder In Packet 1 packet PO BID Qty: 0 0RF potassium chloride 20 mEq tablet extended release 20 meq PO DAILY Qty: 1 0RF doxepin 10 mg capsule 10 mg PO DAILY menthol-zinc oxide [Calmoseptine] 0.44-20.6 % ointment 1 applic topical BID nystatin [Nystop] 100,000 unit/gram powder 1 applic topical BID sennosides-docusate sodium [2-in-1 Laxative] 8.6-50 mg tablet 1 tab-cap PO BID furosemide [Lasix] 40 mg tablet 40 mg PO DAILY levetiracetam [Keppra] 100 mg/mL solution 500 mg PO BID isosorbide mononitrate 30 mg tablet extended release 24 hr 30 mg PO DAILY Qty: 90 4RF Referrals / Follow Up: Rios Downey DO [Primary Care Provider] - Within 2 Weeks Disposition Disposition (needs filled in before D/C Order can be placed): Alf Facility Charges/Coding Visit Charges Inpatient E&M: 19268 Disch Hosp 08/22/23 1217 <Electronically signed by Mikey Macias DO> Cosigner Signature (if applicable): CC: Dr. Mikey Macias DO; Dr. Rios Downey DO~ Signed [facility] Work Phone: 1([phone]) 602-946809-25-2023 Discharge summary Author Mikey Macias [facility] August 22, 2023 12:16pm Note Date/Time August 22, 2023 12:12pm [facility] System Medical Records Department [address] [place] [address] Transfer to [facility] MR#: [id number] Acct: [id number] Name: JODIE CARDENAS Rep #:[id number] : 1940 83 From: Mikey Macias DO PCP: Dr. Rios Downey, DO Status:ADM IN Certification of patient admission REQUIRED AT TIME OF ADMISSION. I CERTIFY THAT POST-HOSPITAL ECF SERVICES ARE REQUIRED TO BE GIVEN ON AN IN-PATIENT BASIS BECAUSE OF THE ABOVE NAMED PATIENT'S NEED FOR DETENTION CARE ON A CONTINUING BASIS FOR THE CONDITION(S) FOR WHICH HE/SHE WAS RECEIVING IN-PATIENT HOSPITAL SERVICES PRIOR TO HIS/HER TRANSFER TO THE ECF. 08/22/23 1216<Electronically signed by Mikey Macias DO> Diet Diet Order/Speech Therapy: 08/19/23 13:25 ADA [Diet: Cardiac: Calorie-Controlled] Food consistency:: Pureed Liquid Consistency:: [place]/Mildly Thick Is pt able to select menu?: No Diet Comments: distant supervision, small bites/sips, seated upright for intake How many daily calories?: 1800 calorie Wound(s) right elbow: Wound Type: Abrasion right lower leg: Wound Type: Abrasion left arm: Wound Type: Skin Tear left lower leg: Wound Type: scattered abrasions Therapies Weight Bearing: Full weight bearing Physical Therapy: Eval and Treat Occupational Therapy: Eval and Treat Speech Therapy: Eval and Treat Problem/Diagnosis (1) Confusion: Status: Acute Code(s): R41.0 - Disorientation, unspecified Plan: Acute metabolic encephalopathy Multifactorial including patient underlying chronic hypoxic respiratory failure, obstructive sleep apnea, obesity hypoventilation syndrome,. MRI brain negative for CVA. Likely chronic fluctuation the patient does have. Recommend outpatient geriatric evaluation for possible dementia. (2) Debility: Status: Acute Code(s): R53.81 - Other malaise Plan: Patient to go back to [facility] [place]. Plan Chronic conditions * Seizure disorder?Patient is on Keppra did continue * Chronic kidney disease stage IV? Kidney function at baseline * Hypertension- Blood pressure controlled, home medications continued with dose adjustment as needed * Gout? Patient is on allopurinol continue * Dyslipidemia-Patient is on statin therapy, continued at home dose * Class II obesity with BMI of 40.1? Complicating care weight loss advised * Chronic congestive heart failure with reduced ejection fraction? Recent echo obtained on 06/29/2023 demonstrated EF of 40%. Patient remains compensated on his home dose furosemide * Paroxysmal atrial fibrillation? Rate controlled on systemic anticoagulation w ith apixaban continue * Obstructive sleep apnea? Consistent use of BiPAP encouraged * Obesity hypoventilation syndrome? Patient is on BiPAP at night * Diabetes mellitus type 2? 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 With previous CABG. Patient remains on guideline directed medical therapy * Depression with anxiety? Patient is on SSRI Allergies/Procedures Done in Hospital Allergies Penicillins [PCN] Allergy (Verified 08/18/23 11:43) Swelling Procedures: None Type of Care/Length of Stay Estimated LOS: Convalescent Care Less Than 30 days Type of Care Needed: Skilled Rehab Potential: Fair Prognosis: Fair Additional Orders/Day of Discharge Day of Discharge: 08/22/23 Dietary and Speech Recommendations Dietitian Recommendations/Changes: As medically able, rec CRISTINA to liberal CHO Control 2000 jade/ No Addes slat As medically able, rec 4 oz glucerna shake 4x/day w/ medpass Discharge Plan Admission Admit Date/Time: 08/18/23 14:36 Primary Reason for Your Visit: confusion Attending Provider: Mikey Macias Primary Care Provider: Rios Downey Consulting Providers: Patricia Alcantara; James Camarillo Discharge Orders/Prescriptions Prescriptions: Continued famotidine 20 mg tablet 20 mg PO DAILY olanzapine 2.5 mg tablet 2.5 mg PO QHS Eliquis 2.5 mg tablet 2.5 mg PO BID atorvastatin 40 MG tablet 40 mg PO QHS aspirin 81 MG tablet,delayed release (DR/EC) 81 mg PO DAILY Patient Comments: multivitamin 1 EACH tablet 1 ea PO DAILY insulin regular human 100 UNIT/ML solution 25 unit SC BID Patient Comments: afternoon and night insulin NPH isoph U-100 human 100 unit/mL suspension 25 unit SC BID cholecalciferol (vitamin D3) 1,000 UNIT tablet 25 mcg PO DAILY sertraline 25 MG tablet 25 mg PO DAILY calcitriol 0.25 mcg capsule 0.5 mcg PO MOWEFR allopurinol 300 mg tablet 150 mg PO DAILY Daily Fiber (psyllium-aspart) 3 gram Powder In Packet 1 packet PO BID Qty: 0 0RF potassium chloride 20 mEq tablet extended release 20 meq PO DAILY Qty: 1 0RF doxepin 10 mg capsule 10 mg PO DAILY menthol-zinc oxide [Calmoseptine] 0.44-20.6 % ointment 1 applic topical BID nystatin [Nystop] 100,000 unit/gram powder 1 applic topical BID sennosides-docusate sodium [2-in-1 Laxative] 8.6-50 mg tablet 1 tab-cap PO BID furosemide [Lasix] 40 mg tablet 40 mg PO DAILY levetiracetam [Keppra] 100 mg/mL solution 500 mg PO BID isosorbide mononitrate 30 mg tablet extended release 24 hr 30 mg PO DAILY Qty: 90 4RF Referrals / Follow Up: Rios Downey DO [Primary Care Provider] - Within 2 Weeks Disposition Disposition (needs filled in before D/C Order can be placed): Alf Facility 08/22/23 1216 <Electronically signed by Mikey Macias DO> Cosigner Signature (if applicable): CC: Dr. Patricia Alcantara MD; Dr. James Camarillo MD; Dr. Rios Downey DO ~ [facility] Work Phone: [phone]) 821-460809-25-2023 Progress note Author [facility] August 22, 2023 12:11pm Note Date/Time August 22, 2023 10:00am [facility] Health System Medical Records Department [address] [place] [address] Progress Note - Hospitalist 08/22/23 0956 MR#: [id number] Acct: [id number] Name: JODIE CARDENAS Rep #:[id number] : 1940 83 From: Mikey Macias DO PCP: Dr. Rios Downey DO Status:ADM [facility] Reason for Visit Reason for Visit: Diagnoses Disorientation, unspecified (08/18/23) Subjective Subjective No events feels well. Patient's granddaughter was at bedside and states that hechronically has good and bad days when he waxes and wanes in regards to his mentation. His hospitalization has been no different. Objective Data Objective Data Vital Signs: Vital Signs Temp Pulse Resp BP Pulse Ox O2 Del Method O2 Flow Rate 36.6 C 71 18 113/50 L 96 Nasal Cannula 4 08/22/23 02:55 08/22/23 02:55 08/22/23 02:55 08/22/23 02:55 08/22/23 02:55 08/22/23 02:55 08/22/23 02:55 Oxygen Flow Rate (L/min) 4 Oxygen Delivery Method Nasal Cannula Weight: 112.2 kg Body Mass Index (BMI) 41.1 Intake & Output: Intake and Output for Last 24 Hours 08/20/23 08/21/23 08/22/23 23:59 23:59 23:59 Intake Total 1428.07 / 1428.07 480 / 480 Output Total 750 / 750 200 / 500 450 / 450 Balance 678.07 / 678.07 280 / -20 -450 / -450 Lab / Micro Data 08/22/23 05:15 08/22/23 05:15 Labs: Laboratory Results - last 24 hr 08/21/23 11:46: POC Glucose 179 H 08/21/23 16:36: POC Glucose 150 H 08/21/23 21:10: POC Glucose 181 H 08/22/23 05:15: WBC 9.5, RBC 3.28 L, Hgb 10.2 L, Hct 32.2 L, MCV 98.2 H, MCH 31.1, MCHC 31.7 L, RDW Std Deviation 51.4 H, RDW Coeff of Yeny 14.2, Plt Count 137 L, MPV 10.8, Immature Gran % (Auto) 0.300, Neut % (Auto) 75.8 H, Lymph % (Auto) 16.5 L, Dyer % (Auto) 5.6, Eos % (Auto) 1.4, Baso % (Auto) 0.4, Absolute Neuts (auto) 7.2, Absolute Lymphs (auto) 1.57, Nucleated RBC % 0, Sodium 139, Potassium 4.7, Chloride 112 H, Carbon Dioxide 21.0, Anion Gap 6, BUN 46 H, Creatinine 2.51 H, Estim Creat Clear Calc 19.74, Est GFR (MDRD) Af Amer 32 L, Est GFR (MDRD) Non-Af 26 L, BUN/Creatinine Ratio 18.3, Glucose 131 H, Calcium 8.7 08/22/23 06:06: POC Glucose 124 H Physical Exam Const alert and no apparent distress Resp normal respiratory effort, no retractions, no use of accessory muscles and clearto auscultation bilaterally Cardio regular rate, regular rhythm, S1 normal heart sound and S2 normal heart sound GI normal to inspection, nondistended, normoactive bowel sounds, soft to palpation,non-tender and non-distended Assessment & Plan Assessment/Plan (1) Confusion: PLAN: Acute metabolic encephalopathy Multifactorial including patient underlying chronic hypoxic respiratory failure, obstructive sleep apnea, obesity hypoventilation syndrome,. MRI brain negative for CVA. Likely chronic fluctuation the patient does have. Recommend outpatient geriatric evaluation for possible dementia. (2) Debility: PLAN: Patient to go back to [facility] [place]. PLAN: Plan Chronic conditions * Seizure disorder?Patient is on Keppra did continue * Chronic kidney disease stage IV? Kidney function at baseline * Hypertension- Blood pressure controlled, home medications continued with dose adjustment as needed * Gout? Patient is on allopurinol continue * Dyslipidemia-Patient is on statin therapy, continued at home dose * Class II obesity with BMI of 40.1? Complicating care weight loss advised * Chronic congestive heart failure with reduced ejection fraction? Recent echo obtained on 06/29/2023 demonstrated EF of 40%. Patient remains compensated on his home dose furosemide * Paroxysmal atrial fibrillation? Rate controlled on systemic anticoagulation with apixaban continue * Obstructive sleep apnea? Consistent use of BiPAP encouraged * Obesity hypoventilation syndrome? Patient is on BiPAP at night * Diabetes mellitus type 2? 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 With previous CABG. Patient remains on guideline directed medical therapy * Depression with anxiety? Patient is on SSRI 08/22/23 1211 <Electronically signed by Mikey Macias DO> Cosigner Signature (if applicable): CC: ~ Signed [facility] Work Phone: [phone]) 458-849709-24-2023 Progress note Author James Camarillo [facility] August 21, 2023 11:49am Note Date/Time August 21, 2023 8:45am [facility] Health System Medical Records Department [address] [place] [address] Progress Note - Hospitalist 08/21/23 0844 MR#: [id number] Acct: [id number] Name: JODIE CARDENAS Rep #:[id number] : 1940 83 From: James Camarillo MD PCP: Dr. Rios Downey, DO Status:ADM IN Location: [place] [address]- 1 Reason for Visit Reason for Visit: Diagnoses Disorientation, unspecified (08/18/23) Subjective Subjective Patient seen remains stable with no change in condition plan is for patient to be transferred to shelter facility pending insurance approval/precertification Objective Data Objective Data Vital Signs: Vital Signs Temp Pulse Resp BP Pulse Ox O2 Del Method O2 Flow Rate 98.7 F 76 18 168/106 H 95 Nasal Cannula 3 08/21/23 03:00 08/21/23 03:00 08/21/23 03:00 08/21/23 03:00 08/21/23 03:00 08/21/23 07:51 08/21/23 07:51 Oxygen Flow Rate (L/min) 3 Oxygen Delivery Method Nasal Cannula Weight: 114 kg Body Mass Index (BMI) 41.8 Intake & Output: Intake and Output for Last 24 Hours 08/19/23 08/20/23 08/21/23 23:59 23:59 23:59 Intake Total 2723.63 / 2723.63 1428.07 / 1428.07 Output Total 1550 / 1550 750 / 750 Balance 1173.63 / 1173.63 678.07 / 678.07 Lab / Micro Data 08/21/23 04:19 08/21/23 04:19 Labs: Laboratory Results - last 24 hr 08/20/23 12:12: POC Glucose 134 H 08/20/23 16:23: POC Glucose 131 H 08/20/23 20:38: POC Glucose 173 H 08/21/23 04:19: WBC 8.3, RBC 3.18 L, Hgb 10.0 L, Hct 31.4 L, MCV 98.7 H, MCH 31.4, MCHC 31.8 L, RDW Std Deviation 51.5 H, RDW Coeff of Yeny 14.3, Plt Count 145 L, MPV 11.0, Immature Gran % (Auto) 0.400, Neut % (Auto) 74.3 H, Lymph % (Auto) 17.4 L, Dyer % (Auto) 6.0, Eos % (Auto) 1.4, Baso % (Auto) 0.5, Absolute Neuts (auto) 6.2, Absolute Lymphs (auto) 1.45, Nucleated RBC % 0, Sodium 139, Potassium 4.5, Chloride 110 H, Carbon Dioxide 22.0, Anion Gap 7, BUN 46 H, Creatinine 2.75 H, Estim Creat Clear Calc 18.02, Est GFR (MDRD) Af Amer 29 L, Est GFR (MDRD) Non-Af 24 L, BUN/Creatinine Ratio 16.7, Glucose 118 H, Calcium 8.0 L, Phosphorus 2.6, Magnesium 1.9 Physical Exam Narrative GENERAL: cooperative HEENT: Atraumatic; normocephalic EYES; Anicteric, Normal Conjunctiva NECK; supple, normal thyroid, RESPIRATORY: Diminished to auscultation CARDIOVASCULAR: Regular S1 S2, GI: soft, normoactive bowel sounds, : No Renal angle tenderness; EXTREMITIES: No edema, no clubbing, MUSCULOSKELETAL: no muscle wasting NEURO: Awake; no lateralizing signs. SKIN: Chronic skin changes PSYCH; Flat affect Assessment & Plan Assessment/Plan (1) Confusion: PLAN: Plan Patient is an 83-year-old gentleman with multiple comorbidities including recentdiagnosis of seizure disorder who was being managed at the transitional care unit found to have altered mental status stroke alert was called patient transferred to the ED and subsequently admitted to a monitored bed for further management. MRI obtained came back negative for acute CVA 1. Acute metabolic encephalopathy ? Multifactorial including patient underlying chronic hypoxic respiratory failure, obstructive sleep apnea, obesity hypoventilation syndrome,. Admitted to monitored bed MRI obtained came back negative for acute CVA. 2. Physical deconditioning - Requested for PT OT eval and social services designee to assist with discharge planning ? 08/20/2023; awaiting insurance approval prior to transfer to shelter facility ? 08/21/2023; Patient seen remains stable with no change in condition plan is forpatient to be transferred to shelter facility pending insurance approval/precertification 3. Seizure disorder ?Patient is on Keppra did continue 4. Chronic kidney disease stage IV ? Kidney function at baseline 5. Hypertension - Blood pressure controlled, home medications continued with dose adjustment as needed 6. Gout ? Patient is on allopurinol continue 7. Dyslipidemia -Patient is on statin therapy, continued at home dose 8. Class II obesity with BMI of 40.1 ? Complicating care weight loss advised 9. 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 Recent echo obtained on 06/29/2023 demonstrated EF of 40%. Patient remains compensated on his home dose furosemide 10. Paroxysmal atrial fibrillation ? Rate controlled on systemic anticoagulation with apixaban continue 11. Obstructive sleep apnea ? Consistent use of BiPAP encouraged 12. Obesity hypoventilation syndrome ? Patient is on BiPAP at night 13. Diabetes mellitus type 2 ? Patient is on long-acting insulin continued also placed on Accu-Cheks before meals and at bedtime with sliding scale coverage 14. Valvular heart disease ? With history of aortic valve replacement with bioprosthetic material remained stable 15. Coronary artery disease ? With previous CABG. Patient remains on guideline directed medical therapy 16. Depression with anxiety ? Patient is on SSRI 17. DVT prophylaxis ? On apixaban Time spent in the patient's overall evaluation,decision-making process, review of diagnostic data, adjustment of management, discussion with other providers, nursing nursing and ancillary staff involved in patient's care documentation, 35minutes Charges/Coding Visit Charges Inpatient E&M: 84208 Subs Hosp L2 08/21/23 1149 <Electronically signed by James Camarillo MD> Cosigner Signature (if applicable): CC: ~ Signed [facility] Work Phone: 1(860) 231-217909-23-2023 Progress note Author James Camarillo [facility] August 20, 2023 11:15am Note Date/Time August 20, 2023 8:35am [facility] Health System Medical Records Department [address] [place] [address] Progress Note - Hospitalist 08/20/23 0835 MR#: [id number] Acct: [id number] Name: JODIE CARDENAS Rep #:[id number] : 1940 83 From: James Camarillo MD PCP: Dr. Rios Downey, DO Status:ADM IN Location: [place] [address] Reason for Visit Reason for Visit: Diagnoses Disorientation, unspecified (08/18/23) Subjective Subjective Patient seen appears to be back to [facility] Objective Data Objective Data Vital Signs: Vital Signs Temp Pulse Resp BP Pulse Ox O2 Del Method O2 Flow Rate 98.1 F 69 19 H 145/80 H 100 Nasal Cannula 3 08/20/23 03:04 08/20/23 03:10 08/20/23 03:10 08/20/23 03:04 08/20/23 03:10 08/20/23 03:10 08/20/23 03:10 Oxygen Flow Rate (L/min) 3 Oxygen Delivery Method Nasal Cannula Weight: 109.4 kg Body Mass Index (BMI) 40.1 Intake & Output: Intake and Output for Last 24 Hours 08/18/23 08/19/23 08/20/23 23:59 23:59 23:59 Intake Total 980.00 / 980.00 2723.63 / 2723.63 153.47 / 153.47 Output Total 1550 / 1550 200 / 200 Balance 980.00 / 580.00 1173.63 / 1173.63 -46.53 / -46.53 Lab / Micro Data 08/19/23 03:05 08/19/23 03:05 Labs: Laboratory Results - last 24 hr 08/19/23 11:27: POC Glucose 97 08/19/23 12:55: APTT 97.5 H* 08/19/23 17:19: POC Glucose 171 H 08/19/23 20:55: APTT 95.6 H* 08/19/23 23:28: POC Glucose 144 H 08/20/23 04:35: APTT 96.3 H* 08/20/23 06:37: POC Glucose 97 Radiography Diagnostic Testing: Radiology Impression Brain CT 08/18/23 11:00 IMPRESSION: Chronic involutional changes of the brain. N.B. : The above Results were Read Back by Mahendra Canada MD to Dr Marquise MD, and understanding confirmed on 08/18/2023 11:28:31 (ET). Electronically Signed: Mahendra Canada MD at 11:29 EDT , ADDENDUM: 08/19/23 1447 IMPRESSION: Chronic involutional changes of the brain. N.B. : The above Results were Read Back by Mahendra Canada MD to Dr Marquise MD, and understanding confirmed on 08/18/2023 11:28:31 (ET). Electronically Signed: Mahendra Canada MD at 11:29 EDT , Brain MRI 08/19/23 09:30 IMPRESSION: 1. No acute intracranial abnormality. 2. Stable senescent changes. Electronically Signed: Jared Garcias MD at 11:18 EDT , Physical Exam Narrative GENERAL: cooperative HEENT: Atraumatic; normocephalic EYES; Anicteric, Normal Conjunctiva NECK; supple, normal thyroid, RESPIRATORY: Diminished to auscultation CARDIOVASCULAR: Regular S1 S2, GI: soft, normoactive bowel sounds, : No Renal angle tenderness; EXTREMITIES: No edema, no clubbing, MUSCULOSKELETAL: no muscle wasting NEURO: Awake; no lateralizing signs. SKIN: Chronic skin changes PSYCH; Flat affect Assessment & Plan Assessment/Plan (1) Confusion: PLAN: Plan Patient is an 83-year-old gentleman with multiple comorbidities including recentdiagnosis of seizure disorder who was being managed at the transitional care unit found to have altered mental status stroke alert was called patient transferred to the ED and subsequently admitted to a monitored bed for further management. MRI obtained came back negative for acute CVA 1. Acute metabolic encephalopathy ? Multifactorial including patient underlying chronic hypoxic respiratory failure, obstructive sleep apnea, obesity hypoventilation syndrome,. Admitted to monitored bed MRI obtained came back negative for acute CVA. 2. Physical deconditioning - Requested for PT OT eval and social services designee to assist with discharge planning ? 08/20/2023; awaiting insurance approval prior to transfer to shelter facility 3. Seizure disorder ?Patient is on Keppra did continue 4. Chronic kidney disease stage IV ? Kidney function at baseline 5. Hypertension - Blood pressure controlled, home medications continued with dose adjustment as needed 6. Gout ? Patient is on allopurinol continue 7. Dyslipidemia -Patient is on statin therapy, continued at home dose 8. Class II obesity with BMI of 40.1 ? Complicating care weight loss advised 9. 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 Recent echo obtained on 06/29/2023 demonstrated EF of 40%. Patient remains compensated on his home dose furosemide 10. Paroxysmal atrial fibrillation ? Rate controlled on systemic anticoagulation with apixaban continue 11. Obstructive sleep apnea ? Consistent use of BiPAP encouraged 12. Obesity hypoventilation syndrome ? Patient is on BiPAP at night 13. Diabetes mellitus type 2 ? Patient is on long-acting insulin continued also placed on Accu-Cheks before meals and at bedtime with sliding scale coverage 14. Valvular heart disease ? With history of aortic valve replacement with bioprosthetic material remained stable 15. Coronary artery disease ? With previous CABG. Patient remains on guideline directed medical therapy 16. Depression with anxiety ? Patient is on SSRI 17. DVT prophylaxis ? On apixaban Time spent in the patient's overall evaluation,decision-making process, review of diagnostic data, adjustment of management, discussion with other providers, nursing nursing and ancillary staff involved in patient's care documentation, 35minutes Charges/Coding Visit Charges Inpatient E&M: 43624 Subs Hosp L2 08/20/23 1115 <Electronically signed by James Camarillo MD> Cosigner Signature (if applicable): CC: ~ Signed [facility] Work Phone: 1(980) 907-721509-22-2023 Progress [facility] August 19, 2023 12:57pm Note Date/Time August 19, 2023 9:42am [facility] Health System Medical Records Department [address] [place] [address] Progress Note - Hospitalist 08/19/23 0941 MR#: [id number] Acct: [id number] Name: JODIE CARDENAS Rep #:[id number] : 1940 83 From: James Camarillo MD PCP: Dr. Rios Downey, DO Status:ADM IN Location: [address] 1 Reason for Visit Reason for Visit: Diagnoses Disorientation, unspecified (08/18/23) Subjective Subjective Patient is an 83-year-old gentleman with multiple comorbidities including recentdiagnosis of seizure disorder who was being managed at the transitional care unit found to have altered mental status stroke alert was called patient transferred to the ED and subsequently admitted to a monitored bed for further management. MRI obtained came back negative for acute CVA Objective Data Objective Data Vital Signs: Vital Signs Temp Pulse Resp BP Pulse Ox O2 Del Method O2 Flow Rate 97.1 F L 72 16 137/67 H 95 Nasal Cannula 4 08/19/23 08:00 08/19/23 08:00 08/19/23 08:00 08/19/23 08:00 08/19/23 08:00 08/19/23 08:22 08/19/23 08:22 Oxygen Flow Rate (L/min) 4 Oxygen Delivery Method Nasal Cannula Weight: 109.2 kg Body Mass Index (BMI) 40.0 Intake & Output: Intake and Output for Last 24 Hours 08/17/23 08/18/23 08/19/23 23:59 23:59 23:59 Intake Total 980.00 / 980.00 344.2 / 344.2 Output Total 800 / 800 Balance 980.00 / 580.00 -455.8 / -455.8 Lab / Micro Data 08/19/23 03:05 08/19/23 03:05 Labs: Laboratory Results - last 24 hr 08/18/23 11:35: WBC 9.0, RBC 3.47 L, Hgb 10.8 L, Hct 34.3 L, MCV 98.8 H, MCH 31.1, MCHC 31.5 L, RDW Std Deviation 51.6 H, RDW Coeff of Yeny 14.3, Plt Count 153, MPV 11.3, Immature Gran % (Auto) 0.400, Neut % (Auto) 73.4 H, Lymph % (Auto) 17.6 L, Dyer % (Auto) 6.4, Eos % (Auto) 1.8, Baso % (Auto) 0.4, Absolute Neuts (auto) 6.6, Absolute Lymphs (auto) 1.58, Nucleated RBC % 0, PT 17.1 H, INR1.4, APTT 38.4 H, Sodium 139, Potassium 4.5, Chloride 107, Carbon Dioxide 29.0, Anion Gap 3 L, BUN 44 H, Creatinine 2.23 H, Estim Creat Clear Calc 22.22, Est GFR (MDRD) Af Amer 36 L, Est GFR (MDRD) Non-Af 30 L, BUN/Creatinine Ratio 19.7, Glucose 151 H, Calcium 9.6, Troponin I High Sens 78 08/18/23 15:45: PT 18.9 H, INR 1.6, APTT 40.0 H, Magnesium 1.9, Ammonia 14.0 08/18/23 18:47: POC Glucose 127 H 08/19/23 00:55: POC Glucose 112 H 08/19/23 03:05: WBC 8.5, RBC 3.21 L, Hgb 9.9 L, Hct 31.8 L, MCV 99.1 H, MCH 30.8, MCHC 31.1 L, RDW Std Deviation 51.3 H, RDW Coeff of Yeny 14.2, Plt Count 140 L, MPV 10.9, Immature Gran % (Auto) 0.200, Neut % (Auto) 67.7, Lymph % (Auto) 22.6, Dyer % (Auto) 6.6, Eos % (Auto) 2.4, Baso % (Auto) 0.5, Absolute Neuts (auto) 5.7, Absolute Lymphs (auto) 1.91, Nucleated RBC % 0, APTT > 200.0 H*, Sodium 137, Potassium 4.1, Chloride 111 H, Carbon Dioxide 23.0, Anion Gap 3 L, BUN 44 H, Creatinine 2.15 H, Estim Creat Clear Calc 23.04, Est GFR (MDRD) Af Amer 38 L, Est GFR (MDRD) Non-Af 31 L, BUN/Creatinine Ratio 20.5 H, Glucose 101,Calcium 8.7, Total Bilirubin 0.50, AST 17, ALT 15 L, Alkaline Phosphatase 110, Total Protein 6.9, Albumin 2.4 L, Globulin 4.5 H, Albumin/Globulin Ratio 0.5 L, TSH 5.80 H 08/19/23 06:11: POC Glucose 90 ABG Data ABG results: ABG 08/18/23 20:51 Specimen Type AYE Sample Site Not entered O2 % 4.0 VBG pH 7.36 VBG pO2 29 VBG HCO3 26 VBG Total CO2 28 VBG O2 Sat (Calc) 52 VBG Base Excess 1 POC Mix VBG pCO2 Pt Tmp 47.0 O2 Delivery Device Cannula Radiography Diagnostic Testing: Radiology Impression Head/Neck CTA 08/18/23 11:15 IMPRESSION: Greater than 70% stenosis at the origin of the left internal carotid artery. Less than 50% stenosis at the origin of the right internal carotid artery. N.B. : The above Results were Read Back by Mahendra Canada MD to Dr Cammie DO, and understanding confirmed on 08/18/2023 11:39:12 (ET). Electronically Signed: Mahendra Canada MD at 11:38 EDT , Chest X-Ray 08/18/23 12:25 IMPRESSION: Moderate cardiomegaly. Findings suggestive of a mild degree of increased linear markings at the left lung base with blunting of the left costophrenic angle. Electronically Signed: Mahendra Canada MD at 12:55 EDT , Physical Exam Narrative GENERAL: cooperative HEENT: Atraumatic; normocephalic EYES; Anicteric, Normal Conjunctiva NECK; supple, normal thyroid, RESPIRATORY: Diminished to auscultation CARDIOVASCULAR: Regular S1 S2, GI: soft, normoactive bowel sounds, : No Renal angle tenderness; EXTREMITIES: No edema, no clubbing, MUSCULOSKELETAL: no muscle wasting NEURO: Awake; no lateralizing signs. SKIN: Chronic skin changes PSYCH; Flat affect Assessment & Plan Assessment/Plan (1) Confusion: PLAN: Plan Patient is an 83-year-old gentleman with multiple comorbidities including recentdiagnosis of seizure disorder who was being managed at the transitional care unit found to have altered mental status stroke alert was called patient transferred to the ED and subsequently admitted to a monitored bed for further management. MRI obtained came back negative for acute CVA 1. Acute metabolic encephalopathy ? Multifactorial including patient underlying chronic hypoxic respiratory failure, obstructive sleep apnea, obesity hypoventilation syndrome,. Admitted to monitored bed MRI obtained came back negative for acute CVA. 2. Physical deconditioning - Requested for PT OT eval and social services designee to assist with discharge planning 3. Seizure disorder ?Patient is on Keppra did continue 4. Chronic kidney disease stage IV ? Kidney function at baseline 5. Hypertension - Blood pressure controlled, home medications continued with dose adjustment as needed 6. Gout ? Patient is on allopurinol continue 7. Dyslipidemia -Patient is on statin therapy, continued at home dose 8. Class II obesity with BMI of 40.1 ? Complicating care weight loss advised 9. 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 Recent echo obtained on 06/29/2023 demonstrated EF of 40%. Patient remains compensated on his home dose furosemide 10. Paroxysmal atrial fibrillation ? Rate controlled on systemic anticoagulation with apixaban continue 11. Obstructive sleep apnea ? Consistent use of BiPAP encouraged 12. Obesity hypoventilation syndrome ? Patient is on BiPAP at night 13. Diabetes mellitus type 2 ? Patient is on long-acting insulin continued also placed on Accu-Cheks before meals and at bedtime with sliding scale coverage 14. Valvular heart disease ? With history of aortic valve replacement with bioprosthetic material remained stable 15. Coronary artery disease ? With previous CABG. Patient remains on guideline directed medical therapy 16. Depression with anxiety ? Patient is on SSRI 17. DVT prophylaxis ? On apixaban Time spent in the patient's overall evaluation,decision-making process, review of diagnostic data, adjustment of management, discussion with other providers, nursing nursing and ancillary staff involved in patient's care documentation, 55minutes Charges/Coding Visit Charges Inpatient E&M: 59592 Subs Hosp L3 08/19/23 1257 <Electronically signed by James Camarillo MD> Cosigner Signature (if applicable): CC: ~ Signed [facility] Work Phone: 1(593) 715-751709-21-2023 History and physical note Author Patricia Alcantara [facility] August 18, 2023 9:21pm Note Date/Time August 18, 2023 2:36pm [facility] Health System Medical Records Department [address] [place] [address] H&P Exam - Hospitalist 08/18/23 1435 MR#: [id number] Acct: [id number] Name: JODIE CARDENAS Rep #:[id number] : 1940 83 From: Patricia Alcantara MD PCP: Dr. Rios Downey, DO Status:ADM IN [facility] HPI - General General Date of Admission: 08/18/23 Date of Service: 08/18/23 Chief Complaint: Facial droop, confusion. 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), Former tobacco use, CAD s/p CABG x 4, Valvular Heart Disease s/p AVR, Diabetes mellitustype II, Anxiety and Depression, recent hospital discharge 07/03/23 following evaluation for initial concern of TIA with acute encephalopathy; however, work-up unremarkable for TIA and presentation suspected to a possible seizure increased on his dose of Keppra to 500 twice daily with transition to the TCU following who now represents to the [facility] ED on 08/18/23 with history of onset of left-sided facial droop unfortunately alert and oriented only to self but per TCU last normal 930 while he was undergoing speech therapy with then onset of left-sided facial droop with his last dose of Eliquis per report on AM of day oftransition to the ED for evaluation prompting stroke alert. Patient is very similar to his recent presentation of note. Work-up in the ED included T97.1, heart rate 74, BP 133/65, respiratory rate 14, 98% on 4 L nasal cannula which appears to be his chronic level, CBC with WC 9.0, hemoglobin 10.8, MCV 98.8, platelet 153 without marked shift, coags with PT 17.1, INR 1.4, PTT 38.4, BMP with BUN/creatinine 44/2.23, glucose 151, troponin 78, chest x-ray with moderatecardiomegaly and findings suggestive of a mild degree of increased linear markings at the left lung base with blunting of the left costophrenic angle, CTAhead and neck with greater than 70% stenosis at the origin of the left ICA, lessthan 50% stenosis at the origin of the right ICA, EKG rate controlled atrial fibrillation with no acute evidence of ischemia. In the ED patient administered maintenance IV fluids. [facility] Medical History Acute exacerbation of CHF (congestive heart failure) Acute on chronic diastolic (congestive) heart failure Acute respiratory failure with hypoxia Anemia Atherosclerosis of coronary artery bypass graft without angina pectoris Atherosclerosis of coronary artery of nikolski heart without angina pectoris Atrial fibrillation with rapid ventricular response (07/11/16) BiPAP (biphasic positive airway pressure) dependence Cholecystitis Chronic combined systolic and diastolic CHF (congestive heart failure) Chronic renal failure, stage 3 (moderate) Chronic respiratory failure with hypoxia COPD (chronic obstructive pulmonary disease) Essential (primary) hypertension Former smoker Hyperlipemia Left bundle branch block Localized edema Lymphedema Morbid obesity with BMI of 45.0-49.9, adult Non-rheumatic aortic stenosis Obstructive sleep apnea Ocular migraine On home oxygen therapy Paroxysmal atrial fibrillation Restrictive airway disease Right lower lobe pneumonia Sepsis TIA (transient ischemic attack) Type 2 diabetes mellitus without complications Venous insufficiency of both lower extremities Home Medications aspirin 81 mg tablet,delayed release 81 mg PO DAILY HEART HEALTH 07/11/16 [History Last Taken 07/03/23] atorvastatin 40 mg tablet 40 mg PO QHS CHOLSTEROL 07/11/16 [History Last Taken 08/17/23] multivitamin 1 ea PO DAILY HEALTH MAINTENANCE 07/11/16 [History Last Taken 08/18/23] insulin regular human 100 unit/mL injection solution 25 unit subcut BID [id number]/27/16 [History Last Taken 07/02/23] cholecalciferol (vitamin D3) 25 mcg (1,000 unit) tablet 25 mcg PO DAILY SUPPLEMENT 10/26/16 [History Last Taken 08/18/23] sertraline 25 mg tablet 25 mg PO DAILY DEPRESSION 01/10/18 [History Last Taken 08/18/23] insulin NPH isoph U-100 human 100 unit/mL subcutaneous suspension 25 unit subcutBID DIABETES 03/08/18 [History Last Taken 07/03/23] famotidine 20 mg tablet 20 mg PO DAILY GERD 11/13/19 [History Last Taken 08/18/23] olanzapine 2.5 mg tablet 2.5 mg PO QHS DEPRESSION 11/13/19 [History Last Taken 08/17/23] allopurinol 300 mg tablet 150 mg PO DAILY GOUT 12/07/21 [History Last Taken 08/18/23] apixaban 2.5 mg tablet (Eliquis) 2.5 mg PO BID BLOOD THINNER 10/07/22 [History Last Taken 07/03/23] calcitriol 0.25 mcg capsule 0.5 mcg PO MOWEFR SUPPLEMENT 10/07/22 [History Last Taken 08/17/23] isosorbide mononitrate 30 mg tablet,extended release 24 hr 30 mg PO DAILY HEART #90 tabs 02/01/23 [Rx Last Taken 08/18/23] potassium chloride 20 mEq tablet,extended release 20 meq PO DAILY potassium #1 TAB 07/03/23 [Rx Last Taken Unknown] psyllium husk (aspartame) 3 gram oral powder packet (Daily Fiber (psyllium-aspartame)) 1 packet PO BID constipation #0 ea 07/03/23 [Rx Last Taken 07/03/23] doxepin 10 mg capsule 10 mg PO DAILY 08/18/23 [History Last Taken 08/17/23] furosemide 40 mg tablet (Lasix) 40 mg PO DAILY water pill 08/18/23 [History Last Taken 08/18/23] levetiracetam 100 mg/mL oral solution (Keppra) 500 mg PO BID 08/18/23 [History Last Taken 08/18/23] menthol 0.44 %-zinc oxide 20.6 % topical ointment (Calmoseptine) 1 applic topical BID 08/18/23 [History Last Taken 08/18/23] nystatin 100,000 unit/gram topical powder (Nystop) 1 applic topical BID 08/18/23[History Last Taken 08/18/23] sennosides 8.6 mg-docusate sodium 50 mg tablet (2-in-1 Laxative) 1 tab-cap PO BID 08/18/23 [History Last Taken 08/18/23] Allergy/AdvReac Type Severity Reaction Status Date / Time Penicillins [PCN] Allergy Swelling Verified 08/18/23 11:43 Family History Father Myocardial infarction Mother CVA (cerebral vascular accident) Brother CAD (coronary artery disease) Diabetes Surgical History H/O aortic valve replacement (02/24/16) H/O coronary artery bypass surgery (02/24/16) Hx of cholecystectomy (01/13/17) Social History household members: family and other details: Granddaughter. Smoking Status: Unknown if ever smoked how long ago did patient quit smokin + years alcohol intake: never substance use type: does not use caffeine: Yes Type: carbonated beverages and tea ROS Review of Systems ROS Unobtainable: due to encephalopathy Vital Signs Vital Signs Vital Signs: 08/18/23 11:23 08/18/23 11:15 08/18/23 11:15 Temperature 97.8 F 97.1 F L Temperature Source Temporal Temporal Pulse Rate 75 74 Respiratory Rate 14 14 Blood Pressure 152/71 H 133/65 H Blood Pressure Mean 98 87 Pulse Ox 99 98 Oxygen Delivery Method Nasal Cannula Nasal Cannula Nasal Cannula Oxygen Flow Rate (L/min) 4 4 4 08/18/23 11:30 08/18/23 12:43 08/18/23 12:57 Temperature Temperature Source Pulse Rate 66 74 68 Respiratory Rate 13 21 H 15 Blood Pressure 152/71 H 122/75 H 122/75 H Blood Pressure Mean 98 90 90 Pulse Ox 99 98 95 Oxygen Delivery Method Nasal Cannula Nasal Cannula Nasal Cannula Oxygen Flow Rate (L/min) 4 4 4 Weight Weight: 273 lb 2.444 oz Body Mass Index (BMI) 45.4 Physical Exam Narrative Physical Examination: General: Awakens to stimuli, intermittently alert, not answering orientation questions, will follow some commands but very difficult exam, seated upright in ED bed, no acute distress. Skin: Normal color, normal turgor, no icterus, no cyanosis except very staged ecchymoses especially to the extremities. HEENT: AT/NC, EOMI, PERRLA, dry MM, no carotid bruits or JVD noted; however, thickened neck makes evaluation difficult, unable to discern any marked left facial droop of note. Lungs: Markedly diminished, greater bases, no evidence of any respiratory distress, no rales, ronchi or wheezing. Heart: Irregular, rate controlled; no gallop, rub audible, + SM. Abdomen: Soft, morbidly obese, NTTP, distant BS, difficult to assess distention and HSM given habitus. Extremities: No cyanosis, no clubbing, peripheral edema present and from report likely chronic component. Neurological: Awakens to stimuli, intermittently alert, not answering orientation questions, will follow some commands but very difficult exam, seated upright in ED bed, no acute distress, cognitive function diminished baseline but currently below baseline intact; pupils equally reactive to light and accommodation, cranial nerves appear grossly normal but difficult exam, spontaneously moving all extremities, strength difficult to assess but appears severely globally decreased, unable to have patient perform finger-nose or [id number], equivocal Babinski, patient is definitely having interactive difficulties and aphasic of note. Psychiatric: Affect appears flat, no acute evidence of depressive or anxiety feelings. Results Lab / Micro Data 08/18/23 11:35 08/18/23 11:35 Labs: Laboratory Results - last 24 hr 08/18/23 11:35: WBC 9.0, RBC 3.47 L, Hgb 10.8 L, Hct 34.3 L, MCV 98.8 H, MCH 31.1, MCHC 31.5 L, RDW Std Deviation 51.6 H, RDW Coeff of Yeny 14.3, Plt Count 153, MPV 11.3, Immature Gran % (Auto) 0.400, Neut % (Auto) 73.4 H, Lymph % (Auto) 17.6 L, Dyer % (Auto) 6.4, Eos % (Auto) 1.8, Baso % (Auto) 0.4, Absolute Neuts (auto) 6.6, Absolute Lymphs (auto) 1.58, Nucleated RBC % 0, PT 17.1 H, INR 1.4, APTT 38.4 H, Sodium 139, Potassium 4.5, Chloride 107, Carbon Dioxide 29.0, Anion Gap 3 L, BUN 44 H, Creatinine 2.23 H, Estim Creat Clear Calc 22.22, Est GFR (MDRD) Af Amer 36 L, Est GFR (MDRD) Non-Af 30 L, BUN/Creatinine Ratio 19.7, Glucose 151 H, Calcium 9.6, Troponin I High Sens 78 Radiology Impression Head/Neck CTA 08/18/23 11:15 IMPRESSION: Greater than 70% stenosis at the origin of the left internal carotid artery. Less than 50% stenosis at the origin of the right internal carotid artery. N.B. : The above Results were Read Back by Mahendra Canada MD to Dr Cammie DO, and understanding confirmed on 08/18/2023 11:39:12 (ET). Electronically Signed: Mahendra Canada MD at 11:38 EDT , Chest X-Ray 08/18/23 12:25 IMPRESSION: Moderate cardiomegaly. Findings suggestive of a mild degree of increased linear markings at the left lung base with blunting of the left costophrenic angle. Electronically Signed: Mahendra Canada MD at 12:55 EDT , Assessment & Plan Assessment/Plan (1) Confusion: PLAN: Plan The patient is an 83 y/o M w/ PMHx: CKD stage IV, HTN, HLD, Anxiety and Depression, Morbid Obesity, Seizure disorder, PAF, GERD, Combined Chronic CHF, AUTUMN on BIPAP, COPD with Chronic Hypoxic Respiratory Failure (4L NC), Former tobacco use, CAD s/p CABG x 4, Valvular Heart Disease s/p AVR, Diabetes mellitus type II,recent hospital discharge 07/03/23 following evaluation for initial concern of TIA with acute encephalopathy; however, work-up unremarkable for TIA and presentation suspected to a possible seizure increased on his dose of Keppra to 500 twice daily with transition to the TCU following who now represents to the [facility] ED on 08/18/23 with history of onset of left-sided facial droop unfortunately alert and oriented only to self but per TCU last normal 930 while he was undergoing speech therapy with then onset of left-sided facial droop with his last dose of Eliquis per report on AM of day of transition to the ED for evaluation prompting stroke alert. #1. Confusion, Aphasia, L sided facial droop concerning for possible CVA: Will admit to PCU, given similar presentation recently with negative MRI of the brain we will also obtain ABG and will request also ammonia level to be cautious we will pursue continued stroke work-up including MRI Brain, recent ECHO and carotid US from prior CVA evaluations thus will not repeat at this time, PT/OT/Speech/Nutrition evaluation per protocol. Will allow permissive HTN, given concern for oral intake will transition to GA ASA, holding oral regimen. Maintain on fall precautions. Mag, TSH, FLP, HgbA1c requested. Once work-up obtained low threshold to obtain Neurology consultation. Will transition keppra to IV. If MRI negative may need to consider repeat EEG and neurology consultation. #2. Seizure disorder: Suspected underlying seizure disorder with recent evaluation similar to his current presentation with eventual diagnosis of suspected seizures, will transition to IV Keppra with ongoing evaluation as noted #1. #3. Hypertension: We will maintain permissive hypertension given acute presentation with as needed IV agents per stroke protocol with readdition of oral agents once oral intake deemed safe also of note. #4. Hyperlipidemia: Holding oral statin, add back once appropriate. #5. CKD stage IV: Chronic Kidney Disease Stage: Admission BUN/Cr 44/2.3, baseline renal function 2.2-2.5 primarily more recently, repeat BMP in AM. #6. PAF: Will initiate heparin drip at next dose is due of Eliquis until oral intake safe, not on rate or rhythm agent. #7. Combined Chronic CHF: Currently appears compensated, will judiciously hydrate only if needed, currently holding all oral regimen, transitioning to as needed aspirin and heparin drip at next dose is due of Eliquis with hold on hypertensive medication for permissive hypertension given stroke presentation evaluation as noted, temporally holding oral statin with resumption once appropriate. #8. 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 #9. CAD s/p CABG x 4, currently holding all oral regimen, BS, temporally holding oral statin with resumption once appropriate. #10. Valvular Heart Disease: s/p AVR, 06/29/2023 echocardiogram with normal LV size, EF 40%, mild to moderate TVI, PASP 44 mmHg with a negative bubble contrast study and appropriate appearing bioprosthetic aortic valve. #11. Diabetes mellitus type II: Hold oral home regimen, currently n.p.o. status given unsafe oral intake concerns, in the interim maintain on every 6 hours accu checks w/ ISS, hemoglobin A1c requested per stroke protocol, nutrition consulted for evaluation also. #12. Anxiety and depression: We will temporally hold patient home sertraline regimen while awaiting speech therapy evaluation given concerns for unsafe oral intake. #13. Morbid Obesity: Weight loss and lifestyle changes encouraged. #14. Former tobacco use: Encourage continued tobacco cessation. #15. GERD: We will maintain on IV PPI given n.p.o. status as noted. #16. AUTUMN: BIPAP q HS. #17. DVT prophylaxis: Temporarily holding patient home Eliquis until oral intake safe, transition in the interim to heparin drip at next dose due. #18. She CODE status: Per most recent admission will continue prior requested DNR-CCA, no intubation status. Charges/Coding Visit Charges Inpatient E&M: 22509 Init Hosp L3 08/18/232120 <Electronically signed by Patricia Alcantara MD> Cosigner Signature (if applicable): CC: Dr. Patricia Alcantara MD; Dr. Rios Downey, DO~ Signed [facility] Work Phone: 1(576) 993-459709-21-2023 Discharge summary Author Farhan Whittrus [facility] August 18, 2023 6:32pm Note Date/Time August 18, 2023 11:20am [facility] Health System Medical Records Department [address] [place] [address] Emergency Department Summary 08/18/23 MR#: [id number] Acct: [id number] Name: JODIE CARDENAS Rep #:[id number] : 1940 83 From: Farhan Encinas PCP: Dr. Rios Downey, Status:ADM IN Location: [place] [address] HPI History of Present Illness Chief Complaint: Stroke Alert [facility] Medical History (Updated 08/18/23 @ 17:56 by Audra Wilhelm) Acute exacerbation of CHF (congestive heart failure) Acute on chronic diastolic (congestive) heart failure Acute respiratory failure with hypoxia Anemia Atherosclerosis of coronary artery bypass graft without angina pectoris Atherosclerosis of coronary artery of nikolski heart without angina pectoris Atrial fibrillation with rapid ventricular response (07/11/16) BiPAP (biphasic positive airway pressure) dependence Cholecystitis Chronic combined systolic and diastolic CHF (congestive heart failure) Chronic renal failure, stage 3 (moderate) Chronic respiratory failure with hypoxia COPD (chronic obstructive pulmonary disease) Essential (primary) hypertension Former smoker Hyperlipemia Left bundle branch block Localized edema Lymphedema Morbid obesity with BMI of 45.0-49.9, adult Non-rheumatic aortic stenosis Obstructive sleep apnea Ocular migraine On home oxygen therapy Paroxysmal atrial fibrillation Restrictive airway disease Right lower lobe pneumonia Sepsis TIA (transient ischemic attack) Type 2 diabetes mellitus without complications Venous insufficiency of both lower extremities Home Medications aspirin 81 mg tablet,delayed release 81 mg PO DAILY HEART HEALTH 07/11/16 [History Last Taken 07/03/23] atorvastatin 40 mg tablet 40 mg PO QHS CHOLSTEROL 07/11/16 [History Last Taken 08/17/23] multivitamin 1 ea PO DAILY HEALTH MAINTENANCE 07/11/16 [History Last Taken 08/18/23] insulin regular human 100 unit/mL injection solution 25 unit subcut BID [id number]/27/16 [History Last Taken 07/02/23] cholecalciferol (vitamin D3) 25 mcg (1,000 unit) tablet 25 mcg PO DAILY SUPPLEMENT 10/26/16 [History Last Taken 08/18/23] sertraline 25 mg tablet 25 mg PO DAILY DEPRESSION 01/10/18 [History Last Taken 08/18/23] insulin NPH isoph U-100 human 100 unit/mL subcutaneous suspension 25 unit subcutBID DIABETES 03/08/18 [History Last Taken 07/03/23] famotidine 20 mg tablet 20 mg PO DAILY GERD 11/13/19 [History Last Taken 08/18/23] olanzapine 2.5 mg tablet 2.5 mg PO QHS DEPRESSION 11/13/19 [History Last Taken 08/17/23] allopurinol 300 mg tablet 150 mg PO DAILY GOUT 12/07/21 [History Last Taken 08/18/23] apixaban 2.5 mg tablet (Eliquis) 2.5 mg PO BID BLOOD THINNER 10/07/22 [History Last Taken 07/03/23] calcitriol 0.25 mcg capsule 0.5 mcg PO MOWEFR SUPPLEMENT 10/07/22 [History Last Taken 08/17/23] isosorbide mononitrate 30 mg tablet,extended release 24 hr 30 mg PO DAILY HEART #90 tabs 02/01/23 [Rx Last Taken 08/18/23] potassium chloride 20 mEq tablet,extended release 20 meq PO DAILY potassium #1 TAB 07/03/23 [Rx Last Taken Unknown] psyllium husk (aspartame) 3 gram oral powder packet (Daily Fiber (psyllium-aspartame)) 1 packet PO BID constipation #0 ea 07/03/23 [Rx Last Taken 07/03/23] doxepin 10 mg capsule 10 mg PO DAILY 08/18/23 [History Last Taken 08/17/23] furosemide 40 mg tablet (Lasix) 40 mg PO DAILY water pill 08/18/23 [History Last Taken 08/18/23] levetiracetam 100 mg/mL oral solution (Keppra) 500 mg PO BID 08/18/23 [History Last Taken 08/18/23] menthol 0.44 %-zinc oxide 20.6 % topical ointment (Calmoseptine) 1 applic topical BID 08/18/23 [History Last Taken 08/18/23] nystatin 100,000 unit/gram topical powder (Nystop) 1 applic topical BID 08/18/23[History Last Taken 08/18/23] sennosides 8.6 mg-docusate sodium 50 mg tablet (2-in-1 Laxative) 1 tab-cap PO BID 08/18/23 [History Last Taken 08/18/23] Allergy/AdvReac Type Severity Reaction Status Date / Time Penicillins [PCN] Allergy Swelling Verified 08/18/23 11:43 Family History Father Myocardial infarction Mother CVA (cerebral vascular accident) Brother CAD (coronary artery disease) Diabetes Surgical History (Updated 07/11/23 @ 00:01 by Background Purvi) H/O aortic valve replacement (02/24/16) H/O coronary artery bypass surgery (02/24/16) Hx of cholecystectomy (01/13/17) Social History (Updated 07/03/23 @ 20:[address] Jreemy Magallanes MD) household members: family and other details: Granddaughter. Smoking Status: Unknown if ever smoked how long ago did patient quit smokin + years alcohol intake: never substance use type: does not use caffeine: Yes Type: carbonated beverages and tea EXAM Physical Exam Const Vital Signs: 08/18/23 11:23 08/18/23 11:15 08/18/23 11:15 Temperature 97.8 F 97.1 F L Temperature Source Temporal Temporal Pulse Rate 75 74 Respiratory Rate 14 14 Blood Pressure 152/71 H 133/65 H Blood Pressure Mean 98 87 Pulse Ox 99 98 Oxygen Delivery Method Nasal Cannula Nasal Cannula Nasal Cannula Oxygen Flow Rate (L/min) 4 4 4 08/18/23 11:30 08/18/23 12:43 08/18/23 12:57 Temperature Temperature Source Pulse Rate 66 74 68 Respiratory Rate 13 21 H 15 Blood Pressure 152/71 H 122/75 H 122/75 H Blood Pressure Mean 98 90 90 Pulse Ox 99 98 95 Oxygen Delivery Method Nasal Cannula Nasal Cannula Nasal Cannula Oxygen Flow Rate (L/min) 4 4 4 08/18/23 13:00 08/18/23 14:00 Temperature Temperature Source Pulse Rate 61 61 Respiratory Rate 14 Blood Pressure 71/47 L 94/59 L Blood Pressure Mean 55 70 Pulse Ox 95 Oxygen Delivery Method Oxygen Flow Rate (L/min) [facility] Narrative Medical decision making narrative: HISTORY OF PRESENT ILLNESS: 83-year-old male here with concern for left-sided facial droop. Patient baseline is alert and oriented to self only does not provide reliable history. Per nurse from [facility] ([facility] patient was last normal at 930 he is undergoing speech therapy and was noted to have a left-sided facial droop. Last known well 9:30 AM on 08/18/2023. States his last dose of Eliquis was this morning. REVIEW OF SYSTEMS: Pertinent positives: Left-sided facial droop Pertinent negatives: None endorsed secondary to change in mental status PHYSICAL EXAM: Nursing triage notes reviewed, Vital signs reviewed Constitutional: please see mdm HENT: MMM Eyes: Pupils equal round and reactive to light, Extraocular muscles intact Neck: No stridor, no JVD, full neck ROM Lungs: Clear to auscultation, No wheezing or rales. No increased work of breathing, no conversational dyspnea, no accessory muscle use, no nasal flaring. No respiratory distress noted Heart: Regular rate and rhythm, No murmurs, No rubs and No gallops, 2+ distal pulses (radial, femoral, posterior tibial) in all extremities Abdomen: Soft, there is no tenderness, rigidity, rebound or guarding, no obvious peritoneal signs, no palpable pulsatile abdominal masses, no auscultated abdominal bruit : No CVAT Extremities: No edema Neuro: Patient was somnolent related to minor stimuli, is oriented to person only, has maybe a slight left-sided facial droop, dysarthria noted, no obvious extremity deficits or sensory deficits noted Skin: No rash or lesions noted MEDICAL DECISION MAKING: Chief Complaint: Left-sided facial droop, code stroke External records reviewed: Reviewed nephrology note from July 2023 which showed patient had recent hospitalization for TIA versus acute encephalopathy. MRI at that time showed no acute stroke, CT scan of the brain showed no acute process. Nephrology's was consulted secondary to CKD 4. Factors affecting care: Atrial fibrillation on Eliquis, CHF, anemia, CABG x4, CKD stage IV, hypertension, hyperlipidemia, type 2 diabetes Social determinants of health: Poor health literacy, baseline altered mental status History obtained from others: The patient's nurse Consults: Stroke neurology, internal medicine MDM Narrative: Patient was initially hemodynamically stable, afebrile and nontoxic-appearing. His blood sugar was acceptable at 147. Stroke protocol was initiated taken immediately to CT scanner. Given the patient's medication history of Eliquis and last dose this morning is not a TNK candidate however you are still within the window for thrombectomy and so I decided it was worth the risk of furthering the patient CKD to obtain a contrasted image to rule out large vessel occlusion given new onset left-sided facial drooping. Patient underwent a CT, CTA of the head and neck. Using 1 L normal saline to decrease risk of contrast-induced nephropathy. I considered the following differential diagnosis: CVA, TIA, seizure, ICH ALL IMAGES (IF OBTAINED) HAVE BEEN PERSONALLY REVIEWED AND INTERPRETED BY MYSELF. EKG with rate controlled atrial fibrillation left axis deviation, prolonged QT, left bundle branch block, no obvious STEMI CBC without significant leukocytosis, there is stable anemia, no thrombocytopenia PT, INR, PTT without evidence of significant coagulopathy BMP without significant electrolyte abnormalities, there is no anion gap, her CKD noted is similar to baseline Troponin is negative, no evidence of myocardial ischemia CTA without LVO Noncon CT brain without ICH Consulted stroke neurology who had recommended admission for further evaluation and risk factor modification. The patient and/or family, caregivers express understanding. The patient and/or family, caregivers agrees with the plan. Shared decision making: I will have a discussion with the patient and or visitors regarding risk/benefits of further testing or admission. They will be made aware of of the risk/benefits inherent in this decision they will be given the opportunity to voice understanding. Total critical care time today provided was at least 0 minutes. This excludes separately billable procedures. Critical care time (if documented) is secondary to the patient having high probability of clinically significant/life threatening deterioration in the patient's condition which required my urgent intervention. Impression: 1. Left-sided facial droop 2. CKD 3. Anemia 4. Carotid artery stenosis Dispo: Admit for further risk factor modification potential MRI Lab Data Labs: Laboratory Results - last 24 hr 08/18/23 11:35 WBC 9.0 RBC 3.47 L Hgb 10.8 L Hct 34.3 L MCV 98.8 H MCH 31.1 MCHC 31.5 L RDW Std Deviation 51.6 H RDW Coeff of Yeny 14.3 Plt Count 153 MPV 11.3 Immature Gran % (Auto) 0.400 Neut % (Auto) 73.4 H Lymph % (Auto) 17.6 L Dyer % (Auto) 6.4 Eos % (Auto) 1.8 Baso % (Auto) 0.4 Absolute Neuts (auto) 6.6 Absolute Lymphs (auto) 1.58 Nucleated RBC % 0 PT 17.1 H INR 1.4 APTT 38.4 H Sodium 139 Potassium 4.5 Chloride 107 Carbon Dioxide 29.0 Anion Gap 3 L BUN 44 H Creatinine 2.23 H Estim Creat Clear Calc 22.22 Est GFR (MDRD) Af Amer 36 L Est GFR (MDRD) Non-Af 30 L BUN/Creatinine Ratio 19.7 Glucose 151 H Calcium 9.6 Troponin I High Sens 78 Radiography Diagnostic Testing: Clinical Impression(s) from Imaging Studies Head/Neck CTA 08/18/23 11:15 IMPRESSION: Greater than 70% stenosis at the origin of the left internal carotid artery. Less than 50% stenosis at the origin of the right internal carotid artery. N.B. : The above Results were Read Back by Mahendra Canada MD to Dr Cammie DO, and understanding confirmed on 08/18/2023 11:39:12 (ET). Electronically Signed: Mahendra Canada MD at 11:38 EDT , Chest X-Ray 08/18/23 12:25 IMPRESSION: Moderate cardiomegaly. Findings suggestive of a mild degree of increased linear markings at the left lung base with blunting of the left costophrenic angle. Electronically Signed: Mahendra Canada MD at 12:55 EDT Reading Location ID and State: [facility] / [place] , Service support , Discharge Plan Disposition Disposition: Acute Care Hospital [facility] Discharge Date/Time: 08/18/23 17:38 What to do if you have Problems For any increased pain, shortness of breath, bleeding, nausea or vomiting, chest pain, or any unexpected problems, contact your Primary Care Provider. Call [facility] ([phone]) or report to the closest Emergency Room. Call 911 if necessary. 08/18/23 183 <Electronically signed by Farhan Bonds DO> Cosigner Signature (if applicable): CC: Dr. Rios Downey DO ~ Signed [facility] Work Phone: [phone]) 748-204009-16-2023 Progress note Author [facility] August 13, 2023 10:00am Note Date/Time August 08, 2023 11:01am [facility] Medical Records Department [address] [place] [address] Progress Note - Nephrology 08/08/23 1059 MR#: [id number] Acct: [id number] Name: JODIE CARDENAS Rep #:[id number] : 1940 83 From: Saumya andrews IP/MOSAIC TECHNICIAN-C PCP: Dr. Rios Downey DO Status:ADM IN Location: [place] [address] Subjective Subjective Resting in bed. No complaints. Objective Data Objective Data Vital Signs: Vital Signs Temp Pulse Resp BP Pulse Ox O2 Del Method O2 Flow Rate 97.3 F L 66 18 156/42 H 94 Nasal Cannula 4 08/07/23 09:36 08/08/23 10:31 08/07/23 22:00 08/08/23 10:31 08/07/23 09:36 08/08/23 10:00 08/08/23 09:03 FiO2 92 07/04/23 19:55 Oxygen Flow Rate (L/min) [At 4 REST with Oxygen] Oxygen Flow Rate (L/min) 4 Oxygen Delivery Method Nasal Cannula Weight: 111.674 kg Body Mass Index (BMI) 41.0 Intake & Output: Intake and Output for Last 24 Hours 08/06/23 08/07/23 08/08/23 23:59 23:59 23:59 Intake Total 840 / 840 840 / 840 240 / 240 Balance 840 / 840 840 / 840 240 / 240 Medical Nutrition Assessment Dietitian: Malnutrition Criteria Met Start: 07/27/23 15:44 Freq: Status: Active Protocol: Document 07/27/23 15:44 SLA (Rec: 07/27/23 15:44 SLA [id number]) Nutrition Malnutrition Evidence of Malnutrition Exists Yes Malnutrition (severe): Acute Illness/Injury Evidenced By Suboptimal Energy Intake ( Severe),Weight Loss (Severe) Clinical Problem Acute Disease or Injury Related Malnutrition Etiology related to inadequate energy intake Signs/Symptoms as evidenced by res consuming <75% of est nutritional needs x >5 days and 4.7% wt loss in past week Status Active Problem Altered Nutrient-Related Laboratory Values Etiology related to renal dysfunction Signs/Symptoms as evidenced by BUN 65, Cr 2. 37 - nephrology following Status Active Problem Biting/Chewing Difficulty Etiology related to dysphagia Signs/Symptoms as evidenced by need for mech altered diet consistency Status Active Problem Recommendation Dietitian Recommendations/Changes Will continue Cardiac, 2000 jade Controlled - consistency per P[employer]ER FEEDER Will monitor for changes in res nutritional status and make additional rec as indicated Will order 4 oz glucerna shake 4x/day w/ medpass for increased nutrition if consumed Lab / Micro Data 08/01/23 07:08 08/01/23 07:08 Micro: Microbiology 07/21/23 18:10 Urine, Catheterized Urine Culture - Final Culture exhibits no growth. 07/07/23 09:00 Urine Catheter - Catheter Urine Culture - Final Culture exhibits no growth. 07/05/23 Unknown Stool Stool Occult Blood (AYUSH) - Final Physical Exam Narrative Alert, no apparent distress S1, S2, rhythm irregular, rate controlled Lung sounds clear anteriorly. Abdomen soft, rounded, positive bowel sounds, nontender Trace edema noted bilateral lower legs Assessment & Plan Assessment/Plan (1) CKD (chronic kidney disease) stage 4, GFR 15-29 ml/min: PLAN: Plan This is a pleasant 83-year-old male with past medical history significant for diabetes mellitus type 2, hypertension, COPD, A-fib, CKD stage IV who is currently in rehab unit receiving therapy after recent hospitalization for TIA/acute encephalopathy. Patient had MRI no evidence of stroke; CT of brain showed no acute bleed or acute process. Nephrology consulted as patient has history of chronic kidney disease. Patient is followed by Dr. Han. - CKD stage IV secondary diabetic nephropathy, baseline creatinine ranging around 2.4 to 2.7 mg/dL. At this time renal function stable and at baseline, SCr 2.23/dL from 08/01. Potassium, acid-base and volume status acceptable. Renal function stable during hospitalization. At time of initial hospital admission renal function at baseline. Patient is nonoliguric and appears to be near euvolemic. Continue lasix. Patient does not need daily bmp labs. - History of HTN; blood pressures acceptable, on lasix and Imdur. - discharge planning in progress. - patient will need hospital follow-up made with his superintendent distribution, Dr. Guille wyatt 1-2 months. 08/08/23 1101 <Electronically signed by Saumya SOSA> Cosigner Signature (if applicable): 08/13/23 1000 <Electronically signed by Carrie Bonner MD> CC: ~ Signed [facility] Work Phone: 1(911) 423-987209-05-2023 Progress note Author [facility] August 02, 2023 8:05am Note Date/Time August 02, 2023 8:05am [facility] Medical Records Department [address] [place] [id number] Progress Note - [facility] 08/02/23 0759 MR#: [id number] Acct: [id number] Name: JODIE CARDENAS Rep #:[id number] : 1940 83 From: Jeremy Magallanes MD PCP: Dr. Rios Downey, DO Status:ADM IN Location: [place] [address] Subjective Subjective Resident seen, examined. 1 week ago, nursing staff thought resident deteriorating and hospice appropriate. But over last several days, his confusion, appetite, strength improved. I spoke with resident granddaughter 4 days prior, that resident improving, and we will continue therapy. Resident granddaughter has court hearing 08/05/2023 for guardianship so she will have access to resident finances to help with discharge plan. Objective Data Objective Data Vital Signs: Vital Signs Temp Pulse Resp BP Pulse Ox O2 Del Method O2 Flow Rate 97.6 F L 82 21 H 107/42 L 92 Nasal Cannula 3 08/01/23 16:00 08/02/23 00:25 08/02/23 00:25 08/01/23 16:00 08/02/23 02:37 08/02/23 02:37 08/02/23 02:37 FiO2 92 07/04/23 19:55 Oxygen Flow Rate (L/min) [At 4 REST with Oxygen] Oxygen Flow Rate (L/min) 3 Oxygen Delivery Method Nasal Cannula Weight: 111.221 kg Body Mass Index (BMI) 40.8 Intake & Output: Intake and Output for Last 24 Hours 07/31/23 08/01/23 08/02/23 23:59 23:59 23:59 Intake Total 1440 / 1440 240 / 240 Output Total 150 / 150 Balance 1290 / 1290 240 / 240 Medical Nutrition Assessment Dietitian: Malnutrition Criteria Met Start: 07/27/23 15:44 Freq: Status: Active Protocol: Document 07/27/23 15:44 SLA (Rec: 07/27/23 15:44 SLA [id number]) Nutrition Malnutrition Evidence of Malnutrition Exists Yes Malnutrition (severe): Acute Illness/Injury Evidenced By Suboptimal Energy Intake ( Severe),Weight Loss (Severe) Clinical Problem Acute Disease or Injury Related Malnutrition Etiology related to inadequate energy intake Signs/Symptoms as evidenced by res consuming <75% of est nutritional needs x >5 days and 4.7% wt loss in past week Status Active Problem Altered Nutrient-Related Laboratory Values Etiology related to renal dysfunction Signs/Symptoms as evidenced by BUN 65, Cr 2. 37 - nephrology following Status Active Problem Biting/Chewing Difficulty Etiology related to dysphagia Signs/Symptoms as evidenced by need for mech altered diet consistency Status Active Problem Recommendation Dietitian Recommendations/Changes Will continue Cardiac, 2000 jade Controlled - consistency per P[employer]ER FEEDER Will monitor for changes in res nutritional status and make additional rec as indicated Will order 4 oz glucerna shake 4x/day w/ medpass for increased nutrition if consumed Lab / Micro Data 08/01/23 07:08 08/01/23 07:08 Labs: Laboratory Results - last 24 hr 08/01/23 07:08: Sodium 139, Potassium 4.2, Chloride 112 H, Carbon Dioxide 21.0, Anion Gap 6, BUN 55 H, Creatinine 2.23 H, Estim Creat Clear Calc 22.22, Est GFR (MDRD) Af Amer 36 L, Est GFR (MDRD) Non-Af 30 L, BUN/Creatinine Ratio 24.7 H, Glucose 129 H, Calcium 9.2 08/01/23 11:51: POC Glucose 114 H 08/01/23 16:23: POC Glucose 108 H 08/01/23 21:24: POC Glucose 156 H 08/02/23 06:16: POC Glucose 140 H Micro: Microbiology 07/21/23 18:10 Urine, Catheterized Urine Culture - Final Culture exhibits no growth. 07/07/23 09:00 Urine Catheter - Catheter Urine Culture - Final Culture exhibits no growth. 07/05/23 Unknown Stool Stool Occult Blood (AYUSH) - Final Physical Exam Const alert General Appearance: cooperative HEENT normocephalic Eyes PERRL and EOMs intact bilaterally Neck supple, no JVD and no carotid bruits Resp normal respiratory effort, normal air movement and clear to auscultation bilaterally Cardio regular rate and regular rhythm GI normal to inspection, nondistended, normoactive bowel sounds, non-tender and non-distended Extremity normal capillary refill General Extremity: Negative for edema Skin no rashes or lesions noted General Skin Exam: no breakdown Psych affect normal Appearance: appropriate Assessment & Plan Assessment/Plan (1) Debility: (2) Encephalopathy: (3) TIA (transient ischemic attack): (4) Dysarthria: (5) Expressive aphasia: (6) Aortic stenosis: (7) Hypertension: (8) Atrial fibrillation: (9) Obstructive sleep apnea: (10) Chronic respiratory failure: (11) Diabetes mellitus: (12) Depression: (13) GERD (gastroesophageal reflux disease): (14) Seizure disorder: (15) Coronary artery disease: PLAN: Plan 83 year old male with below past medical history hospitalized for encephalopathy, TIA, stroke ruled out, admitted to TCU with debility, here for rehabilitation, strengthening, prior to discharge home with granddaughter. * Debility - PT/OT. * Dysphagia - ST. * Pain - Tylenol 1000mg q6h prn pain (1-10). * Bowel - Senna/colace 1 tablet bid, Magnesium citrate 300ml po daily prn. * Adult immunization - Administer pneumonia vaccine, covid19 vaccine, flu vaccine as appropriate. * DVT prophylaxis - on Eliquis. * Gout - Allopurinol 150mg daily. * Atrial fibrillation - Eliquis 2.5mg bid. * Hyperlipidemia - Atorvastatin 40mg qhs. * Hyperparathyroidism - Calcitriol 0.5mg mwf. * GERD - Famotidine 20mg daily. * Edema - Furosemide 40mg every other day. * Coronary artery disease - Imdur 30mg daily, Eliquis 2.5mg bid. * Seizure disorder - Keppra 500mg bid. * Skin irritation - Calmoseptine topical bid. * Nutrition - MVI daily, Glucerna 120ml 4x/day. * Tinea Corporis - Nystatin powder topical bid. * Depression - Sertraline 25mg daily, Zyprexa 2.5mg qhs, stable chronic fci use, GDR not recommended. * Vitamin D deficiency - D3 25mcg daily. * Insomnia - Doxepin 10mg qhs prn. * Anxiety - Lorazepam 1mg q4h prn. Capacity Capacity Assessment Tool Can the patient make a choice & communicate that choice?: No Can the patient understand benefits, risks and alternatives?: No Can the patient make a logical, rational choice?: No Is the choice the patient makes consistent w/ their values?: No Is there an impending, emergent risk to the patient?: No Does the patient have an Advance Directive?: Yes Is there a Surrogate Available?: Yes i.e. HCPOA: Yes i.e. close relative (spouse, child, parent, sibling)?: Yes 08/02/23 0805 <Electronically signed by Jeremy Magallanes MD> Cosigner Signature (if applicable): CC: ~ Signed [facility] Work Phone: 1(506) 137-494608-28-2023 Progress note Author Clay Berry [facility] July 25, 2023 11:36am Note Date/Time July 25, 2023 10 :25am [facility] Medical Records Department [address] [place] [address] Progress Note - Nephrology 07/25/23 1021 MR#: [id number] Acct: [id number] Name: JODIE CARDENAS Rep #:[id number] : 1940 83 From: Saumya andrews IP/MOSAIC TECHNICIAN-C PCP: Dr. Rios Downey, DO Status:ADM IN Location: [place] [address]- Subjective Subjective Following for CKD Sitting in chair. No acute distress noted. No recent overnight events. Objective Data Objective Data Vital Signs: Vital Signs Temp Pulse Resp BP Pulse Ox O2 Del Method O2 Flow Rate 97.0 F L 68 14 96/36 L 86 Room Air 3 07/24/23 16:00 07/25/23 05:45 07/24/23 16:00 07/25/23 05:45 07/25/23 07:54 07/25/23 07:54 07/24/23 16:00 FiO2 92 07/04/23 19:55 Oxygen Flow Rate (L/min) [At 4 REST with Oxygen] Oxygen Flow Rate (L/min) 3 Oxygen Delivery Method Room Air Weight: 115.394 kg Body Mass Index (BMI) 42.3 Intake & Output: Intake and Output for Last 24 Hours 07/23/23 07/24/23 07/25/23 23:59 23:59 23:59 Intake Total 960 / 960 360 / 360 0 / 0 Balance 960 / 960 360 / 360 0 / 0 Lab / Micro Data 07/25/23 05:14 07/25/23 05:14 Labs: Laboratory Results - last 24 hr 07/24/23 11:48: POC Glucose 86 07/24/23 16:34: POC Glucose 92 07/24/23 21:16: POC Glucose 113 H 07/25/23 05:14: WBC 7.8, RBC 2.97 L, Hgb 9.6 L, Hct 29.4 L, MCV 99.0 H, MCH 32.3H, MCHC 32.7 D, RDW Std Deviation 55.1 H, RDW Coeff of Yeny 15.3 H, Plt Count 135 L, MPV 10.7, Immature Gran % (Auto) 0.400, Neut % (Auto) 69.0, Lymph % (Auto) 18.2 L, Dyer % (Auto) 7.8, Eos % (Auto) 4.1, Baso % (Auto) 0.5, Absolute Neuts (auto) 5.4, Absolute Lymphs (auto) 1.42, Nucleated RBC % 0, Sodium 142, Potassium 4.3, Chloride 114 H, Carbon Dioxide 23.0, Anion Gap 5, BUN 65 H, Creatinine 2.37 H, Estim Creat Clear Calc 20.90, Est GFR (MDRD) Af Amer 34 L, Est GFR (MDRD) Non-Af 28 L, BUN/Creatinine Ratio 27.4 H, Glucose 92, Calcium 9.1 07/25/23 06:15: POC Glucose 92 Micro: Microbiology 07/21/23 18:10 Urine, Catheterized Urine Culture - Final Culture exhibits no growth. 07/07/23 09:00 Urine Catheter - Catheter Urine Culture - Final Culture exhibits no growth. 07/05/23 Unknown Stool Stool Occult Blood (AYUSH) - Final Physical Exam Narrative Alert, no apparent distress S1, S2, rhythm irregular, rate controlled Lung sounds clear anteriorly. No audible wheezing Abdomen soft, rounded, positive bowel sounds, nontender Trace edema noted bilateral lower legs Assessment & Plan Assessment/Plan (1) CKD (chronic kidney disease) stage 4, GFR 15-29 ml/min: PLAN: Plan This is a pleasant 83-year-old male with past medical history significant for diabetes mellitus type 2, hypertension, COPD, A-fib, CKD stage IV who is currently in rehab unit receiving therapy after recent hospitalization for TIA/acute encephalopathy. Patient had MRI no evidence of stroke; CT of brain showed no acute bleed or acute process. Nephrology consulted as patient has history of chronic kidney disease. Patient is followed by Dr. Han. - CKD stage IV secondary diabetic nephropathy, baseline creatinine ranging around 2.4 to 2.7 mg/dL. At this time renal function stable and at baseline, SCr 2.37/dL. Potassium, acid-base and volume status acceptable. Renal function stable during hospitalization. At time of initial hospital admission renal function at baseline. Patient is nonoliguric and appears to be near euvolemic. Continue lasix. patient does not need daily bmp labs. - History of HTN; blood pressures acceptable. - discharge planning in progress. - patient will need hospital follow-up made with his superintendent distribution, Dr. Guille wyatt 1-2 months. 07/25/23 1025 <Electronically signed by Saumya SOSA> Cosigner Signature (if applicable): 07/25/23 1136 <Electronically signed by Clay Berry MD> CC: ~ Signed [facility] Work Phone: 1(938) 304-379508-26-2023 Consult note Author Carrie Bonner [facility] July 23, 2023 10:57am Note Date/Time July 11, 2023 11 :26am [facility] Medical Records Department [address] [place] [address] Consultation - Nephrology 07/11/23 1116 MR#: [id number] Acct: [id number] Name: JODIE CARDENAS Rep #:[id number] : 1940 83 From: Saumya andrews IP/MOSAIC TECHNICIAN-C PCP: Dr. Rios Downey, DO Status:ADM IN Location: [place] [address] Assessment & Plan Assessment/Plan (1) CKD (chronic kidney disease) stage 4, GFR 15-29 ml/min: PLAN: Plan This is a pleasant 83-year-old male with past medical history significant for diabetes mellitus type 2, hypertension, COPD, A-fib, CKD stage IV who is currently in rehab unit receiving therapy after recent hospitalization for TIA/acute encephalopathy. Patient had MRI no evidence of stroke; CT of brain showed no acute bleed or acute process. Nephrology consulted as patient has history of chronic kidney disease. Patient is followed by Dr. Han. He has CKD stage IV secondary diabetic nephropathy and baseline creatinine has been ranging around 2.4 to 2.7 mg/dL. At this time renal function stable and at baseline, creatinine has been around 2.4 mg/dL over last few days. At time of initial hospital admission renal function was at baseline. Patient is nonoliguric and appears to be near euvolemic. Potassium and acid-base acceptable. We will continue to monitor renal function. Reviewed medications, blood pressures acceptable, continue on furosemide and Imdur. Thank you for allowing us to participate in the care of Mr. Cardenas, further orders forthcoming as hospitalization evolves. HPI Consult Data Date of Consult: 07/11/23 HPI Narrative HPI Narrative: JODIE CARDENAS, is a 83 M with past medical history significant for hypertension, A- fib, diabetes mellitus type 2, CKD stage IV secondary diabetic nephropathy who is currently in rehab unit receiving therapy after he was admitted to the hospital after presenting to the emergency room for increased confusion and garbled speech; he was initially admitted to the hospital for acute encephalopathy/TIA with etiology unclear, suspected unwitnessed seizure at home. Nephrologyconsulted as patient has history of chronic kidney disease stage IV. Patient isfollowed by Dr. Han. Patient reports he cannot recall when last seen by his superintendent distribution. In reviewing past serum creatinine trends, baseline creatinine ranging around 2.4 to 2.7 mg/dL. Patient denies any recent nausea, vomiting or diarrhea. Reports has good appetite. No recent overnight events. [facility] Medical History Acute exacerbation of CHF (congestive heart failure) Acute on chronic diastolic (congestive) heart failure Acute respiratory failure with hypoxia Anemia Atherosclerosis of coronary artery bypass graft without angina pectoris Atherosclerosis of coronary artery of nik[place]ki heart without angina pectoris Atrial fibrillation with rapid ventricular response (07/11/16) Cholecystitis Chronic combined systolic and diastolic CHF (congestive heart failure) Chronic renal failure, stage 3 (moderate) Chronic respiratory failure with hypoxia COPD (chronic obstructive pulmonary disease) Essential (primary) hypertension Hyperlipemia Left bundle branch block Localized edema Lymphedema Morbid obesity with BMI of 45.0-49.9, adult Non-rheumatic aortic stenosis Obstructive sleep apnea Ocular migraine Paroxysmal atrial fibrillation Restrictive airway disease Right lower lobe pneumonia Sepsis TIA (transient ischemic attack) Type 2 diabetes mellitus without complications Venous insufficiency of both lower extremities Home Medications aspirin 81 mg tablet,delayed release 81 mg PO DAILY HEART HEALTH 07/11/16 [History Last Taken 07/03/23] atorvastatin 40 mg tablet 40 mg PO QHS CHOLSTEROL 07/11/16 [History Last Taken 01/29/20] multivitamin 1 ea PO DAILY HEALTH MAINTENANCE 07/11/16 [History Last Taken 07/03/23] insulin regular human 100 unit/mL injection solution 25 unit subcut BID [id number]/27/16 [History Last Taken 07/02/23] cholecalciferol (vitamin D3) 25 mcg (1,000 unit) tablet 25 mcg PO DAILY SUPPLEMENT 10/26/16 [History Last Taken 07/03/23] sertraline 25 mg tablet 25 mg PO DAILY DEPRESSION 01/10/18 [History Last Taken 07/03/23] insulin NPH isoph U-100 human 100 unit/mL subcutaneous suspension 25 unit subcutBID DIABETES 03/08/18 [History Last Taken 07/03/23] famotidine 20 mg tablet 20 mg PO DAILY GERD 11/13/19 [History Last Taken 07/03/23] olanzapine 2.5 mg tablet 2.5 mg PO QHS DEPRESSION 11/13/19 [History Last Taken 07/02/23] allopurinol 300 mg tablet 150 mg PO DAILY GOUT 12/07/21 [History Last Taken 07/03/23] apixaban 2.5 mg tablet (Eliquis) 2.5 mg PO BID BLOOD THINNER 10/07/22 [History Last Taken 07/03/23] calcitriol 0.25 mcg capsule 0.5 mcg PO MOWEFR SUPPLEMENT 10/07/22 [History Last Taken 07/01/23] isosorbide mononitrate 30 mg tablet,extended release 24 hr 30 mg PO DAILY HEART #90 tabs 02/01/23 [Rx Last Taken 07/03/23] furosemide 40 mg tablet (Lasix) 40 mg PO QODAY water pill #1 TAB 07/03/23 [Rx Last Taken Unknown] levetiracetam 500 mg tablet 500 mg PO BID seizures #0 tabs 07/03/23 [Rx Last Taken Unknown] potassium chloride 20 mEq tablet,extended release 20 meq PO DAILY potassium #1 TAB 07/03/23 [Rx Last Taken Unknown] psyllium husk (aspartame) 3 gram oral powder packet (Daily Fiber (psyllium-aspartame)) 1 packet PO BID constipation #0 ea 07/03/23 [Rx Last Taken 07/03/23] Allergy/AdvReac Type Severity Reaction Status Date / Time Penicillins [PCN] Allergy Swelling Verified 01/31/23 15:29 Family History Father Myocardial infarction Mother CVA (cerebral vascular accident) Brother CAD (coronary artery disease) Diabetes Surgical History H/O aortic valve replacement (02/24/16) H/O coronary artery bypass surgery (02/24/16) Hx of cholecystectomy (01/13/17) Social History (Updated 07/03/23 @ 20:[address] Jeremy Magallanes MD) household members: family and other details: Granddaughter. Smoking Status: Unknown if ever smoked how long ago did patient quit smokin + years alcohol intake: never substance use type: does not use caffeine: Yes Type: carbonated beverages and tea ROS ROS Narrative As in HPI and past medical history Physical Exam Narrative Alert and oriented x3, no apparent distress S1, S2, rhythm irregular, rate controlled Lung sounds clear anteriorly and posteriorly. No wheezes rhonchi rales noted Abdomen soft, rounded, positive bowel sounds, nontender Trace edema noted bilateral lower legs Lab / Micro Data 07/11/23 05:24 07/11/23 05:24 Labs: Laboratory Results - last 24 hr 07/10/23 11:37: POC Glucose 121 H 07/10/23 17:04: POC Glucose 149 H 07/10/23 21:18: POC Glucose 175 H 07/11/23 05:24: WBC 9.1, RBC 3.18 L, Hgb 10.2 L, Hct 31.8 L, MCV 100.0 H, MCH 32.1 H, MCHC 32.1, RDW Std Deviation 53.7 H, RDW Coeff of Yeny 15.2 H, Plt Count 161, MPV 10.5, Immature Gran % (Auto) 0.400, Neut % (Auto) 76.7 H, Lymph % (Auto) 9.8 L, Dyer % (Auto) 9.5, Eos % (Auto) 3.2, Baso % (Auto) 0.4, Absolute Neuts (auto) 7.0, Absolute Lymphs (auto) 0.89, Nucleated RBC % 0, Sodium 136, Potassium 5.0, Chloride 109 H, Carbon Dioxide 20.0 L, Anion Gap 7, BUN 67 H, Creatinine 2.41 H, Estim Creat Clear Calc 20.56, Est GFR (MDRD) Af Amer 33 L, Est GFR (MDRD) Non-Af 28 L, BUN/Creatinine Ratio 27.8 H, Glucose 141 H, Calcium 9.0 07/11/23 06:21: POC Glucose 132 H 07/11/23 1126 <Electronically signed by Saumya SOSA> Cosigner Signature (if applicable): 07/23/23 1057 <Electronically signed by Carrie Bonner MD> CC: Dr. Clay Berry MD; Dr. Rios Downey, DO~ Signed [facility] Work Phone: 1(590) 144-955308-26-2023 Progress note Author Carriedeb Bonner [facility] July 23, 2023 10:57am Note Date/Time July 14, 2023 10 :34am [facility] Health System Medical Records Department [address] [place] [address] Progress Note - Nephrology 07/14/23 1029 MR#: [id number] Acct: [id number] Name: JODIE CARDENAS Rep #:[id number] : 1940 83 From: Saumya andrews IP/MOSAIC TECHNICIAN-C PCP: Dr. Rios Downey, DO Status:ADM IN Location: [place] [address] Subjective Subjective Following for CKD Patient resting quietly. No complaints. No overnight events. Daughter at bedside. Objective Data Objective Data Vital Signs: Vital Signs Temp Pulse Resp BP Pulse Ox O2 Del Method O2 Flow Rate 97.0 F L 76 16 108/75 100 Nasal Cannula 4 07/13/23 14:19 07/14/23 06:58 07/14/23 06:58 07/14/23 06:58 07/14/23 06:58 07/14/23 06:58 07/14/23 06:58 FiO2 92 07/04/23 19:55 Oxygen Flow Rate (L/min) [At 4 REST with Oxygen] Oxygen Flow Rate (L/min) 4 Oxygen Delivery Method Nasal Cannula Weight: 118.614 kg Body Mass Index (BMI) 43.4 Intake & Output: Intake and Output for Last 24 Hours 07/12/23 07/13/23 07/14/23 23:59 23:59 23:59 Intake Total 240 / 240 600 / 600 0 / 0 Balance 240 / 240 600 / 600 0 / 0 Lab / Micro Data 07/11/23 05:24 07/14/23 05:36 Labs: Laboratory Results - last 24 hr 07/13/23 11:29: POC Glucose 118 H 07/13/23 15:50: POC Glucose 140 H 07/13/23 21:22: POC Glucose 173 H 07/14/23 05:36: Sodium 140, Potassium 4.3, Chloride 113 H, Carbon Dioxide 23.0, Anion Gap 4 L, BUN 69 H, Creatinine 2.54 H, Estim Creat Clear Calc 19.50, Est GFR (MDRD) Af Amer 31 L, Est GFR (MDRD) Non-Af 26 L, BUN/Creatinine Ratio 27.2 H, Glucose 139 H, Calcium 9.1 07/14/23 06:15: POC Glucose 130 H Micro: Microbiology 07/07/23 09:00 Urine Catheter - Catheter Urine Culture - Final Culture exhibits no growth. 07/05/23 Unknown Stool Stool Occult Blood (AYUSH) - Final Physical Exam Narrative Alert and oriented x3, no apparent distress S1, S2, rhythm irregular, rate controlled Lung sounds clear anteriorly and posteriorly. No wheezes, rhonchi or rales noted Abdomen soft, rounded, positive bowel sounds, nontender Trace edema noted bilateral lower legs Assessment & Plan Assessment/Plan (1) CKD (chronic kidney disease) stage 4, GFR 15-29 ml/min: PLAN: Plan This is a pleasant 83-year-old male with past medical history significant for diabetes mellitus type 2, hypertension, COPD, A-fib, CKD stage IV who is currently in rehab unit receiving therapy after recent hospitalization for TIA/acute encephalopathy. Patient had MRI no evidence of stroke; CT of brain showed no acute bleed or acute process. Nephrology consulted as patient has history of chronic kidney disease. Patient is followed by Dr. Han. - CKD stage IV secondary diabetic nephropathy, baseline creatinine ranging around 2.4 to 2.7 mg/dL. At this time renal function stable and at baseline, SCr 2.54mg/dL today. At time of initial hospital admission renal function at baseline. Patient is nonoliguric and appears to be near euvolemic. Potassium and acid-base acceptable. We will continue to monitor renal function periodically; patient does not need daily bmp labs. Discussed nephrology plan with patient's daughter, she reports patient does have appointment with Dr. Han. - History of HTN; blood pressures acceptable, continue lasix as ordered. 07/14/23 1034 <Electronically signed by Saumya SOSA> Cosigner Signature (if applicable): 07/23/23 1057 <Electronically signed by Carrie Bnoner MD> CC: ~ Signed [facility] Work Phone: 1(745) 632-185208-26-2023 Progress note Author Carrie Bonner [facility] July 23, 2023 10:56am Note Date/Time July 19, 2023 2: 40pm [facility] Medical Records Department [address] [place] [address] Progress Note - Nephrology 07/19/23 1437 MR#: [id number] Acct: [id number] Name: JODIE CARDENAS Rep #:[id number] : 1940 83 From: Saumya andrews IP/MOSAIC TECHNICIAN-C PCP: Dr. Rios Downey, DO Status:ADM IN Location: [place] [address]- Subjective Subjective No overnight events. Sitting in chair. Objective Data Objective Data Vital Signs: Vital Signs Temp Pulse Resp BP Pulse Ox O2 Del Method O2 Flow Rate 97.4 F L 75 16 161/68 H 91 Nasal Cannula 4 07/18/23 14:04 07/19/23 05:36 07/18/23 14:04 07/19/23 05:36 07/19/23 07:48 07/19/23 07:48 07/19/23 13:26 FiO2 92 07/04/23 19:55 Oxygen Flow Rate (L/min) [At 4 REST with Oxygen] Oxygen Flow Rate (L/min) 4 Oxygen Delivery Method Nasal Cannula Weight: 116.29 kg Body Mass Index (BMI) 42.7 Intake & Output: Intake and Output for Last 24 Hours 07/17/23 07/18/23 07/19/23 23:59 23:59 23:59 Intake Total 120 / 120 840 / 840 720 / 720 Balance 120 / 120 840 / 840 720 / 720 Lab / Micro Data 07/18/23 05:31 07/18/23 05:31 Labs: Laboratory Results - last 24 hr 07/18/23 16:31: POC Glucose 122 H 07/18/23 21:31: POC Glucose 141 H 07/19/23 06:31: POC Glucose 115 H 07/19/23 11:17: POC Glucose 149 H Micro: Microbiology 07/07/23 09:00 Urine Catheter - Catheter Urine Culture - Final Culture exhibits no growth. 07/05/23 Unknown Stool Stool Occult Blood (AYUSH) - Final Physical Exam Narrative Alert and oriented x3, no apparent distress S1, S2, rhythm irregular, rate controlled Lung sounds clear anteriorly. No audible wheezing Abdomen soft, rounded, positive bowel sounds, nontender Trace edema noted bilateral lower legs Assessment & Plan Assessment/Plan (1) CKD (chronic kidney disease) stage 4, GFR 15-29 ml/min: PLAN: Plan This is a pleasant 83-year-old male with past medical history significant for diabetes mellitus type 2, hypertension, COPD, A-fib, CKD stage IV who is currently in rehab unit receiving therapy after recent hospitalization for TIA/acuteencephalopathy. Patient had MRI no evidence of stroke; CT of brain showed no acute bleed or acute process. Nephrology consulted as patient has history of chronic kidney disease. Patient is followed by Dr. Han. - CKD stage IV secondary diabetic nephropathy, baseline creatinine ranging around 2.4 to 2.7 mg/dL. At this time renal function stable and at baseline, SCr 2.42/dL. Renal function stable during hospitalization. At time of initial hospital admission renal function at baseline. Patient is nonoliguric and appears to be near euvolemic. Continue lasix. Potassium and acid-base acceptable. We will continue to monitor renal function periodically; patient does not need daily bmp labs. Per daughter patient does have appointment with Dr. Han. - History of HTN; blood pressures acceptable. 07/19/23 1440 <Electronically signed by Saumya SOSA> Cosigner Signature (if applicable): 07/23/23 1056 <Electronically signed by Carrie Bonner MD> CC: ~ Signed [facility] Work Phone: 1(244) 381-382508-23-2023 Procedure [facility] 07-20-2023 History and physical note Author Jeremy Magallanes [facility] July 20, 2023 7:53am Note Date/Time July 03, 2023 8:3 0pm [facility] Health System Medical Records Department [address] [place] [id number] History & Physical Exam 07/03/232021 MR#: [id number] Acct: [id number] Name: JODIE CARDENAS Rep #:[id number] : 1940 83 From: Jeremy Magallanes MD PCP: Dr. Rios Downey, DO Status:ADM IN Location: [place] [address] HPI - General General Date of Admission: 07/03/23 Date of Service: 07/04/23 Chief Complaint: Here for rehabilitation. HPI Narrative 06/29/2023 DON KAUF, is a 83 Male who presents to [facility] Emergency Department with stroke alert. 06/29/2023 EKG atrial fibrillation with slow ventricular response, left bundle branch block. Sometimes forgetful sleeping in chair, confused. Acting out of character, intermittent confusion, slurring words. Expressive aphasia, dysarthria, confusion. Symptoms improving, NIH 1, not TPA candidate. 06/29/2023 Admit to [facility]. PT/OT/ST, aspirin, atorvastatin for rule out stroke. 06/29/2023 Echo Normal LV size. EF 40%, PASP 44mm HG. Bubble study negative. 06/30/2023 Confused. MRI brain negative for stroke, ammonia level normal, ABG okay. Hallucinating, Ativan given last night. Etiology of confusion unclear. 07/01/2023 Confused, but able to feed himself. SNF recommended. PT/OT. 07/02/2023 More alert, able to carry conversation. Keppra increased to 500mg bid for seizure disorder. 07/03/2023 Admit to TCU with debility, here for rehabilitation, strengthening, prior to discharge home with granddaughter. [facility] Medical History Acute exacerbation of CHF (congestive heart failure) Acute on chronic diastolic (congestive) heart failure Acute respiratory failure with hypoxia Anemia Atherosclerosis of coronary artery bypass graft without angina pectoris Atherosclerosis of coronary artery of nikolski heart without angina pectoris Atrial fibrillation with rapid ventricular response (07/11/16) Cholecystitis Chronic combined systolic and diastolic CHF (congestive heart failure) Chronic renal failure, stage 3 (moderate) Chronic respiratory failure with hypoxia COPD (chronic obstructive pulmonary disease) Essential (primary) hypertension Hyperlipemia Left bundle branch block Localized edema Lymphedema Morbid obesity with BMI of 45.0-49.9, adult Non-rheumatic aortic stenosis Obstructive sleep apnea Ocular migraine Paroxysmal atrial fibrillation Restrictive airway disease Right lower lobe pneumonia Sepsis TIA (transient ischemic attack) Type 2 diabetes mellitus without complications Venous insufficiency of both lower extremities Home Medications aspirin 81 mg tablet,delayed release 81 mg PO DAILY HEART HEALTH 07/11/16 [History Last Taken 07/03/23] atorvastatin 40 mg tablet 40 mg PO QHS CHOLSTEROL 07/11/16 [History Last Taken 01/29/20] multivitamin 1 ea PO DAILY HEALTH MAINTENANCE 07/11/16 [History Last Taken 07/03/23] insulin regular human 100 unit/mL injection solution 25 unit subcut BID [id number]/27/16 [History Last Taken 07/02/23] cholecalciferol (vitamin D3) 25 mcg (1,000 unit) tablet 25 mcg PO DAILY SUPPLEMENT 10/26/16 [History Last Taken 07/03/23] sertraline 25 mg tablet 25 mg PO DAILY DEPRESSION 01/10/18 [History Last Taken 07/03/23] insulin NPH isoph U-100 human 100 unit/mL subcutaneous suspension 25 unit subcutBID DIABETES 03/08/18 [History Last Taken 07/03/23] famotidine 20 mg tablet 20 mg PO DAILY GERD 11/13/19 [History Last Taken 07/03/23] olanzapine 2.5 mg tablet 2.5 mg PO QHS DEPRESSION 11/13/19 [History Last Taken 07/02/23] allopurinol 300 mg tablet 150 mg PO DAILY GOUT 12/07/21 [History Last Taken 07/03/23] apixaban 2.5 mg tablet (Eliquis) 2.5 mg PO BID BLOOD THINNER 10/07/22 [History Last Taken 07/03/23] calcitriol 0.25 mcg capsule 0.5 mcg PO MOWEFR SUPPLEMENT 10/07/22 [History Last Taken 07/01/23] isosorbide mononitrate 30 mg tablet,extended release 24 hr 30 mg PO DAILY HEART #90 tabs 02/01/23 [Rx Last Taken 07/03/23] furosemide 40 mg tablet (Lasix) 40 mg PO QODAY water pill #1 TAB 07/03/23 [Rx Last Taken Unknown] levetiracetam 500 mg tablet 500 mg PO BID seizures #0 tabs 07/03/23 [Rx Last Taken Unknown] potassium chloride 20 mEq tablet,extended release 20 meq PO DAILY potassium #1 TAB 07/03/23 [Rx Last Taken Unknown] psyllium husk (aspartame) 3 gram oral powder packet (Daily Fiber (psyllium-aspartame)) 1 packet PO BID constipation #0 ea 07/03/23 [Rx Last Taken 07/03/23] Allergy/AdvReac Type Severity Reaction Status Date / Time Penicillins [PCN] Allergy Swelling Verified 01/31/23 15:29 Family History Father Myocardial infarction Mother CVA (cerebral vascular accident) Brother CAD (coronary artery disease) Diabetes Surgical History H/O aortic valve replacement (02/24/16) H/O coronary artery bypass surgery (02/24/16) Hx of cholecystectomy (01/13/17) Social History (Updated 07/03/23 @ 20:[address] Jeremy Magallanes MD) household members: family and other details: Granddaughter. Smoking Status: Unknown if ever smoked how long ago did patient quit smokin + years alcohol intake: never substance use type: does not use caffeine: Yes Type: carbonated beverages and tea ROS Constitutional Constitutional: Denies chills, fever(s) or weight gain ENT HEENT: Denies headache(s), nasal congestion or nasal discharge Cardiovascular Cardiovascular: Denies chest pain or palpitations Respiratory/Chest Respiratory/Chest: Denies cough, excessive phlegm production or shortness of breath with exertion Gastrointestinal Gastrointestinal: Denies abdominal pain, nausea or vomiting Genitourinary Genitourinary: Denies dysuria Musculoskeletal Musculoskeletal: Denies joint pain or joint swelling Integumentary Integumentary: Denies rash or wounds Neurologic Neurologic: Denies focal weakness, numbness or tingling Psychiatric Psychiatric: Denies anxiety, auditory hallucinations, depression, homicidal ideation or suicidal ideation Vital Signs Vital Signs Vital Signs: 07/03/23 14:37 07/03/23 16:37 07/03/23 17:30 Temperature 98.2 F 96.8 F L Temperature Source Temporal Temporal Pulse Rate 68 68 72 Pulse Rhythm Irregular Pulse Strength Normal (2+) Respiratory Rate 18 18 20 H Respiratory Effort Normal Respiratory Depth Normal Respiratory Pattern Normal Blood Pressure 158/91 H 119/65 Blood Pressure Mean 113 83 Blood Pressure Source Monitor Monitor Blood Pressure Position Semi-Fowlers Sitting Blood Pressure Location Left Arm Left Arm Pulse Ox 98 98 95 Oxygen Delivery Method Nasal Cannula Nasal Cannula Room Air Oxygen Flow Rate (L/min) 4 4 Weight Weight: 121.619 kg Body Mass Index (BMI) 44.6 Physical Exam Const alert General Appearance: cooperative HEENT normocephalic Eyes PERRL and EOMs intact bilaterally Neck supple, no JVD and no carotid bruits Resp normal respiratory effort, normal air movement and clear to auscultation bilaterally Cardio regular rate and regular rhythm GI normal to inspection, nondistended, normoactive bowel sounds, non-tender and non-distended Extremity normal capillary refill General Extremity: Negative for edema Skin no rashes or lesions noted General Skin Exam: no breakdown Psych affect normal Appearance: appropriate Results Lab / Micro Data 07/04/23 05:26 07/04/23 05:26 Labs: Laboratory Results - last 24 hr 07/03/23 16:41: POC Glucose 139 H Assessment & Plan Assessment/Plan (1) Debility: (2) Encephalopathy: (3) TIA (transient ischemic attack): (4) Dysarthria: (5) Expressive aphasia: (6) Aortic stenosis: (7) Hypertension: (8) Atrial fibrillation: (9) Obstructive sleep apnea: (10) Chronic respiratory failure: (11) Diabetes mellitus: (12) Depression: (13) GERD (gastroesophageal reflux disease): (14) Seizure disorder: (15) Coronary artery disease: PLAN: Plan 83 year old male with below past medical history hospitalized for encephalopathy, TIA, stroke ruled out, admitted to TCU with debility, here for rehabilitation, strengthening, prior to discharge home with granddaughter. * Debility - PT/OT. * Dysphagia - ST. * Pain - Tylenol 1000mg q6h prn pain (1-10). * Bowel - Metamucil 1 packet bid, Magnesium citrate 300ml po daily prn. * Adult immunization - Administer pneumonia vaccine, covid19 vaccine, flu vaccine as appropriate. * DVT prophylaxis - on Eliquis. * Gout - Allopurinol 150mg daily. * Atrial fibrillation - Eliquis 2.5mg bid. * Hyperlipidemia - Atorvastatin 40mg qhs. * Hyperparathyroidism - Calcitriol 0.5mg mwf. * GERD - Famotidine 20mg daily. * Edema - Furosemide 40mg every other day. * Diabetes Mellitus II - NPH 25 units bid. * Coronary artery disease - Imdur 30mg daily, Eliquis 2.5mg bid. * Seizure disorder - Keppra 500mg bid. * Skin irritation - Calmoseptine topical bid. * Nutrition - MVI daily. * Tinea Corporis - Nystatin powder topical bid. * Depression - Sertraline 25mg daily, Zyprexa 2.5mg qhs, stable chronic fci use, GDR not recommended. * Hypokalemia - KCL 20meq daily. * Vitamin D deficiency - D3 25mcg daily. * Acute anemia - Hemoglobin dropped from 11.4 to 9.2, monitor, check stool for blood, resident is on Eliquis. 07/04/23 0738 <Electronically signed by Jeremy Magallanes MD> Cosigner Signature (if applicable): CC: Dr. Rios Downey DO; Dr. Jeremy Magallanes MD~ Signed ADDENDUM by Dr. Jeremy Magallanes MD on 07/12/23 at 0902 Addendum I spoke with resident granddaughter Maria Luisa Alarcon by phone. I discussed how resident is doing, he is not doing well, persistent confusion, worsening physical decline. We discussed code status and changed from Full Code to DNRCC-A, No Intubation. Maria Luisa told me resident has been having intermittent confusion for 5 years. Furthermore, 8 years ago, he had open heart surgery, was in coma for 8 days afterwards. I explained resident most likely has underlying undiagnosed dementia which worsened while he was in the hospital. I told Maria Luisa I am continuing to search for reversible causes of his condition, that Nephrology is seeing him as well, and if she thinks of anything information which maybe helpful in resident's care, to let us know. 07/12/23 0902<Electronically signed by Jeremy Magallanes MD> Cosigner Signature (if applicable): cc: Dr. Rios Downey DO; Dr. Jreemy Magallanes MD ~* Signed ADDENDUM by Dr. Jeremy Magallanes MD on 07/20/23 at 0753 Addendum 07/19/2023 Chest X-ray shows aspiration pneumonia, Rx Clindamycin 300mg tid x 7 days. Insomnia - Rx Doxepin 10mg po qhs prn. 07/20/23752<Electronically signed by Jeremy Magallanes MD> Cosigner Signature (if applicable): cc: Dr. Rios Downey DO; Dr. Jeremy Magallanes MD ~* Signed [facility] Work Phone: 1(591) 357-134508-08-2023 Progress note Author Jeremy Magallanes [facility] July 05, 2023 11:19am Note Date/Time July 05, 2023 11: 03am [facility] Medical Records Department [address] [place] [address] Progress Note - Pharmacy 07/05/23 1048 MR#: [id number] Acct: [id number] Name: JODIE CARDENAS Rep #:[id number] : 1940 83 From: Ingrid Rizvi PCP: Dr. Rios Downey, DO Status:ADM IN Location: TCU TC22-1 Documented by User: Ingrid Rizvi 07/05/23 11:15 TCU RX Drug Regimen Review Subjective/Objective Subjective/Objective: Subjective: TCU Admission. 83 YOM presented to the ER as a stroke alert. Hospitalized for encephalopathy, TIA, stroke ruled out. Admitted to TCU with debility for strengthening and rehabilitation. Objective: Allergies Penicillins [PCN] Allergy (Verified 01/31/23 15:29) Swelling Current Medications Generic Name Dose Route Start Last Admin Trade Name Freq PRN Reason Stop Dose Admin Acetaminophen 1,000 mg 07/03/23 20:38 07/04/23 19:48 Acetaminophen 500 Mg Tablet PO 1,000 mg Q6H PRN PRN Administration Pain Score 1-10 Allopurinol 150 mg 07/04/23 08:00 07/05/23 08:02 Allopurinol 300 Mg Tablet PO 150 mg DAILYCM AYLIN Administration Apixaban 2.5 mg 07/03/23 18:00 07/05/23 05:04 Apixaban 2.5 Mg Tablet (Wch) PO 2.5 mg BID AYLIN Administration Atorvastatin Calcium 40 mg 07/03/23 22:00 07/04/23 19:49 Atorvastatin Calcium 40 Mg Tablet PO 40 mg QHS AYLIN Administration Calamine/Phenol 1 applic 07/03/23 18:00 07/05/23 05:04 Menthol/Lanolin/Calamine/Znox 113 Gm Tube TOPICAL 1 applic BID AYLIN Administration Protocol Calcitriol 0.5 mcg 07/04/23 06:00 07/04/23 05:37 Calcitriol 0.25 Mcg Capsule PO 0.5 mcg MOWEFR AYLIN Administration Cholecalciferol 25 mcg 07/04/23 06:00 07/05/23 05:04 Cholecalciferol (Vit D3) 25 Mcg Tablet (1,000 Units) PO 25 mcg DAILY AYLIN Administration Famotidine 20 mg 07/04/23 06:00 07/05/23 05:04 Famotidine 20 Mg Tablet PO 20 mg DAILY AYLIN Administration Furosemide 40 mg 07/04/23 10:00 07/04/23 08:50 Furosemide 40 Mg Tablet PO 40 mg QODAY AYLIN Administration Insulin Human NPH 25 units 07/03/23 18:00 07/05/23 08:02 Insulin Nph Human 100 Units/Ml Pen SC 25 units BID AYLIN Administration Isosorbide Mononitrate 30 mg 07/04/23 06:00 07/05/23 05:04 Isosorbide Mononitrate 30 Mg Tablet PO 30 mg DAILY AYLIN Administration Levetiracetam 500 mg 07/03/23 18:00 07/05/23 05:04 Levetiracetam 500 Mg Tablet PO 500 mg BID AYLIN Administration Lorazepam 0.5 mg 07/04/23 21:03 07/04/23 21:14 Lorazepam 0.5 Mg Tablet PO 0.5 mg Q6H PRN PRN Administration ANXIETY/RESTLESSNESS/SLEEP Magnesium Citrate 300 ml 07/03/23 20:38 Magnesium Citrate 300 Ml PO DAILY PRN Constipation Multivitamins 1 tablet 07/04/23 08:00 07/05/23 08:03 Multivitamins,Therapeutic Tablet PO 1 tablet DAILYCM AYLIN Administration Nystatin 1 applic 07/03/23 18:00 07/05/23 05:05 Nystatin Powder 15gm Bottle TOPICAL 1 applic BID AYLIN Administration Protocol Olanzapine 2.5 mg 07/03/23 22:00 07/04/23 19:49 Olanzapine 2.5 Mg Tablet PO 2.5 mg QHS AYLIN Administration Potassium Chloride 20 meq 07/04/23 08:00 07/05/23 08:03 Potassium Chloride Oral Tablet 20 Meq PO 20 meq DAILYCM AYLIN Administration Psyllium Hydrophilic Mucilloid 1 packet 07/03/23 18:00 07/05/23 05:04 Psyllium 1 Packet PO 1 packet BID AYLIN Administration Sertraline HCl 25 mg 07/04/23 06:00 07/05/23 05:04 Sertraline 50 Mg Tablet PO 25 mg DAILY AYLIN Administration Sodium Chloride 10 - 40 ml 07/03/23 14:55 07/04/23 08:53 0.9% Saline Lock 10 Ml Syringe IV 10 ml UD PRN Administration SALINE FLUSH Tuberculin PPD 0.1 ml 07/11/23 10:00 Tuberculin,Purif.Prot.Deriv. 50 Tu/Ml Vial ID 07/11/23 10:01 X1 ONE Problem List (Updated 07/03/23 @ 20:[address] Jeremy Magallanes MD) Coronary artery disease (Acute) Seizure disorder (Acute) GERD (gastroesophageal reflux disease) (Acute) Depression (Acute) Diabetes mellitus (Acute) Chronic respiratory failure (Chronic) Atrial fibrillation (Acute) Hypertension (Chronic) Aortic stenosis (Acute) Expressive aphasia (Acute) Dysarthria (Acute) Debility (Acute) Encephalopathy (Acute) TIA (transient ischemic attack) (Acute) Obstructive sleep apnea (Chronic) Vital Signs Temp Pulse Resp BP Pulse Ox O2 Del Method O2 Flow Rate 96.7 F L 61 18 132/44 H 96 Nasal Cannula 4 07/04/23 15:24 07/04/23 19:55 07/04/23 19:55 07/04/23 15:24 07/04/23 15:24 07/04/23 19:55 07/05/23 09:31 FiO2 92 07/04/23 19:55 Oxygen Flow Rate (L/min) 4 Oxygen Delivery Method Nasal Cannula Weight: 121.88 kg Body Mass Index (BMI) 44.6 Sodium 139 mmol/L (136-145) 07/04/23 05:26 Potassium 4.4 mmol/L (3.5-5.1) 07/04/23 05:26 Chloride 112 mmol/L (98-107) H 07/04/23 05:26 Carbon Dioxide 23.0 mmol/L (21.0-32.0) 07/04/23 05:26 Anion Gap 4 (5-15) L 07/04/23 05:26 BUN 46 mg/dL (7-18) H 07/04/23 05:26 Creatinine 2.28 mg/dL (0.70-1.30) H 07/04/23 05:26 Est GFR (MDRD) Af Amer 36 mL/min (>60) L 07/04/23 05:26 Est GFR (MDRD) Non-Af 29 mL/min (>60) L 07/04/23 05:26 BUN/Creatinine Ratio 20.2 RATIO (10-20) H 07/04/23 05:26 Glucose 136 mg/dL (74-106) H 07/04/23 05:26 Assessment/Plan: 1. Pain: acetaminophen 1000mg PO Q6H PRN pain 1-10. Resident has had 2 doses for generalized pain of 2-3. Please continue to monitor for increased pain and PRN usage. 2. Bowel: Metamucil 1 packet PO BID and magnesium citrate 300mL PO daily PRN constipation. Resident has not used any PRN doses. Please continue to monitor for constipation and PRN usage. Last documented bowel movement 07/04/23. 3. Atrial fibrillation/CAD: apixaban 2.5mg PO BID, isosorbide mononitrate 30mg PO daily. Please continue to monitor for S/S of bleeding, renal function (dose appropriate as age is >80 and SCR > 1.5mg/dL), headaches and facial flushing. 4. Gout: allopurinol 150mg PO daily. Please continue to monitor for S/S of gout and renal function. 5. Hyperlipidemia: atorvastatin 40mg PO QHS. Please continue to monitor lipid panel (last 06/30/23), LFTs (last 07/01/23) and muscle pain. 6. Edema: furosemide 40mg PO every other day. Please continue to monitor for S/S of edema, renal function and potassium (last 4.4mmol/L). 7. Diabetes mellitus: insulin NPH 25units SC BID. Please continue to monitor glucose (last 89mg/dL), hemoglobin A1c (last 5.6% 06/30/23) and S/S of hypoglycemia. 8. Seizure disorder: levetiracetam 500mg PO BID. Please continue to monitor for falls/fractures (BEERs medication), S/S of seizures, depression (on sertraline and olanzapine) and irritability. 9. Hyperparathyroidism: calcitriol 0.5mcg PO MWF. Please continue to monitor calcium (last 7.7mg/dL). 10. GERD: famotidine 20mg PO daily. Please continue to monitor for S/S of GERD and renal function. 11. Hypokalemia/vitamin D deficiency/nutrition: potassium chloride 20mEq PO daily, cholecalciferol 25mcg PO daily and multivitamin 1T PO daily. Please consider ordering a vitamin D level as the last level is from 06/18/22 if clinically appropriate. Thanks. Please continue to monitor potassium levels. Assessment/Plan for indications treated with psychotropic medications: 1. Depression: sertraline 25mg PO daily and olanzapine 2.5mg PO QHS. Please see physician note regarding GDR. Please continue to monitor for suicidal ideation (black box warning), falls/fractures (BEERs medication), sodium (last 139mmol/L), dementia/delirium (black box warning and BEERs medication for olanzapine), S/S of stroke (BEERs medication) and anticholinergic side effects (BEERs mediation). 2. Anxiety/sleep/restlessness: lorazepam 0.5mg PO Q6H PRN anxiety/sleep/restlessness. Resident has received 1 dose so far. GDR likely not indicated as this medication was just started and resident has only had 1 dose. Please continue to monitor for falls/fractures (BEERs medication) and dementia/delirium (BEERs medication). Medical chart and medication regimen reviewed. The following medication irregularities or issues were identified: *1. Cholecalciferol 25mcg PO daily. Please consider ordering a vitamin D level as the last level is from 06/18/22 if clinically appropriate. Thanks. Date Date of Note:: 07/05/23 Documented by User: Dr. Jeremy Magallanes MD 07/05/23 11:19 TCU RX Drug Regimen Review Provider Comments Provider responsibility Provider Comments to Recommendations by Pharmacy: Agree 07/05/23 1115 <Electronically signed by Ingrid Rizvi> Ingrid Rizvi Cosigner Signature (if applicable): 07/05/23 1119 <Electronically signed by Jeremy Magallanes MD> CC: ~ Signed [facility] Work Phone: 1(375) 333-503908-06-2023 Discharge summary Author Woody Bustoskita [facility] July 03, 2023 11:01am Note Date/Time July 03, 2023 10: 51am [facility] Health System Medical Records Department [address] [place] [id number] Transfer to Extended Care MR#: [id number] Acct: [id number] Name: JODIE CARDENAS Rep #:[id number] : 1940 83 From: Woody Brunson DO PCP: Dr. Rios Downey, DO Status:ADM IN Certification of patient admission REQUIRED AT TIME OF ADMISSION. I CERTIFY THAT POST-HOSPITAL ECF SERVICES ARE REQUIRED TO BE GIVEN ON AN IN-PATIENT BASIS BECAUSE OF THE ABOVE NAMED PATIENT'S NEED FOR DETENTION CARE ON A CONTINUING BASIS FOR THE CONDITION(S) FOR WHICH HE/SHE WAS RECEIVING IN-PATIENT HOSPITAL SERVICES PRIOR TO HIS/HER TRANSFER TO THE F. 07/03/23 1101<Electronically signed by Woody Brunson DO> Diet Diet Order/Speech Therapy: 07/03/23 09:19 Diet: 2000 jade ADA Food consistency:: Soft & Bite Sized Liquid Consistency:: Regular/Thin Is pt able to select menu?: No Diet Comments: Distant supervision, meds whole in , alt. bites/sips Routine Orders/Code Status O2 Liters per Minute: 4 O2 Frequency: Continuous Keep PO Greater than or Equal to (%): 90 Routine Lab Work: - (Fingerstick blood sugar AC nightly, sliding scale Humalog subcu per scale: 200-250: 5 units, 251-300: 8 units, 301-350: 12 units) Code Status: Full Code Wound(s) Left calf: Wound Type: Abrasion Therapies Weight Bearing: Full weight bearing Physical Therapy: Eval and Treat Occupational Therapy: Eval and Treat Problem/Diagnosis (1) Encephalopathy: Status: Acute Code(s): G93.40 - Encephalopathy, unspecified Plan 1. 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 Total clinical time spent by myself addressing the patient's medical issues, reviewing all of his data, and collaborating with patient's care team: 35 minutes Allergies/Procedures Done in Hospital Allergies Penicillins [PCN] Allergy (Verified 01/31/23 15:29) Swelling Procedures: 2-D Echocardiogram Type of Care/Length of Stay Estimated LOS: Convalescent Care Less Than 30 days Type of Care Needed: Skilled Rehab Potential: Good Prognosis: Good Additional Orders/Day of Discharge H&P will serve as current which was dated: 06/29/23 Day of Discharge: 07/03/23 Dietary and Speech Recommendations Dietitian Recommendations/Changes: Continue diet as ordered - consistency per PICKER FEEDER Will order 4 oz glucerna shake tid w/ medpass d/t poor po intake since in hospital Continue to monitor for changes in pt nutritional status and make additional rec as indicated Speech Linguistic Eval Summary: Patient laying in bed, difficult to arouse. Required constant verbal and tactile cueing to participate in conversation w/ PICKER FEEDER. Frequently closing eyes, lethargic. Granddaughter present for cognitive-linguistic evaluation. Granddaughter reports patient does have some cognitive impairment as baseline, he does not typically know their address, [place], etc. Granddaughter attributes this to age related decline however, PICKER FEEDER suspects dementia at baseline. Granddaughter does live w/ patient. Orientation - Oriented to name, month and date of birthday only. Disoriented to year of , current month, current year and place despite choice array of 2. Patient reporting it is Jul 1964 and he is at [facility]. Unable to recall any personal details. Verbal expression - Very difficult to understand, slurred speech (50% intelligible w/ unknown context). Granddaughter reports worsening dysarthria compared to baseline. Patient does have upper/lower dentures that he sometimes uses when he eats. Auditory comprehension - Difficult to understand task, unable to determine if d/t lethargy or exacerbation of cognitive impairment. PICKER FEEDER discontinued cognitive-linguistic assessment d/t lethargy, will continue w/ assessment in subsequent sessions. Discharge Plan Admission Admit Date/Time: 06/30/23 17:01 Primary Reason for Your Visit: Acute encephalopathy-believed to be postictal Attending Provider: Woody Brunson Primary Care Provider: Rios Downey Consulting Providers: Rigoberto Ashley Instructions Additional Instructions / Restrictions: Patient is to use his own CPAP machine while sleeping Discharge Orders/Prescriptions Prescriptions: New levetiracetam 500 mg Tablet 500 mg PO BID Qty: 0 0RF Daily Fiber (psyllium-aspart) 3 gram Powder In Packet 1 packet PO BID Qty: 0 0RF furosemide [Lasix] 40 mg tablet 40 mg PO QODAY Qty: 1 0RF potassium chloride 20 mEq tablet extended release 20 meq PO DAILY Qty: 1 0RF Continued famotidine 20 mg tablet 20 mg PO DAILY olanzapine 2.5 mg tablet 2.5 mg PO QHS Eliquis 2.5 mg tablet 2.5 mg PO BID atorvastatin 40 MG tablet 40 mg PO QHS aspirin 81 MG tablet,delayed release (DR/EC) 81 mg PO DAILY Patient Comments: multivitamin 1 EACH tablet 1 ea PO DAILY insulin regular human 100 UNIT/ML solution 25 unit SC BID Patient Comments: afternoon and night insulin NPH isoph U-100 human 100 unit/mL suspension 25 unit SC BID cholecalciferol (vitamin D3) 1,000 UNIT tablet 25 mcg PO DAILY sertraline 25 MG tablet 25 mg PO DAILY calcitriol 0.25 mcg capsule 0.5 mcg PO MOWEFR allopurinol 300 mg tablet 150 mg PO DAILY isosorbide mononitrate 30 mg tablet extended release 24 hr 30 mg PO DAILY Qty: 90 4RF Discontinued levetiracetam 500 mg tablet 250 mg PO BID metoprolol tartrate 25 MG tablet 12.5 mg PO BID psyllium husk 0.4 gram capsule 0.4 g PO BID furosemide 40 mg tablet 40 - 80 mg PO DAILY Qty: 180 3RF Rx Instructions: TAKES ONE OR TWO DAILY, BASED ON WEIGHT Referrals / Follow Up: Rios Downey DO [Primary Care Provider] - Disposition Disposition (needs filled in before D/C Order can be placed): Alf Facility 07/03/23 1101 <Electronically signed by Woody Brunson DO> Cosigner Signature (if applicable): CC: Dr. Rigoberto Ashley MD; Dr. Rios Downey DO ~ [facility] Work Phone: 1(817) 803-838908-05-2023 Progress note Author Woody Brunson [facility] July 02, 2023 9:59am Note Date/Time July 02, 2023 9:5 6am [facility] Medical Records Department [address] [place] [address] Progress Note - Hospitalist 07/02/23 0954 MR#: [id number] Acct: [id number] Name: JODIE CARDENAS Rep #:[id number] : 1940 83 From: Woody Brunson DO PCP: Dr. Rios Downey, DO Status:ADM IN Location: [place] [address] Reason for Visit Reason for Visit: Diagnoses Transient cerebral ischemic attack, unspecified (06/30/23) Encephalopathy, unspecified (06/30/23) Subjective Subjective Was seen and examined today, he was able to carry on a conversation with me and he appears more alert. Patient remains afebrile. Objective Data Objective Data Vital Signs: Vital Signs Temp Pulse Resp BP Pulse Ox O2 Del Method O2 Flow Rate 97.6 F L 67 17 149/68 H 95 Nasal Cannula 5 07/02/23 09:00 07/02/23 09:00 07/02/23 09:00 07/02/23 09:00 07/02/23 09:00 07/02/23 09:00 07/02/23 09:00 Oxygen Flow Rate (L/min) 5 Oxygen Delivery Method Nasal Cannula Weight: 113.8 kg Body Mass Index (BMI) 41.7 Intake & Output: Intake and Output for Last 24 Hours 06/30/23 07/01/23 07/02/23 23:59 23:59 23:59 Intake Total 1190 / 1190 2076.67 / 2256.67 1180 / 1180 Output Total 0 / 0 200 / 200 Balance 1190 / 1190 2076.67 / 2256.67 980 / 980 Lab / Micro Data 07/01/23 05:14 07/01/23 05:14 Labs: Laboratory Results - last 24 hr 07/01/23 11:47: POC Glucose 153 H 07/01/23 16:54: POC Glucose 137 H 07/01/23 21:07: POC Glucose 160 H 07/02/23 07:18: POC Glucose 131 H Rhythm Strip Rhythm Strip: A-fib Rate: 43 Ectopy: None Physical Exam Const alert, oriented x3, no apparent distress and healthy appearing General Appearance: cooperative, well kempt and well developed Orientation / Consciousness: awake, oriented to person and oriented to place HEENT normocephalic, head/scalp atraumatic and moist oral mucous membranes Eyes PERRL, EOMs intact bilaterally and conjunctivae normal Neck supple, no JVD, thyroid normal and no carotid bruits General: trachea midline Resp normal respiratory effort, no retractions, no use of accessory muscles and clearto auscultation bilaterally Auscultation: Negative for rales, rhonchi or wheezes Cardio regular rate, regular rhythm, S1 normal heart sound, S2 normal heart sound, no murmurs, no rub and no gallops GI normal to inspection, nondistended, normoactive bowel sounds, soft to palpation,non-tender and non-distended Extremity no clubbing, cyanosis or edema Skin no rashes or lesions noted General Skin Exam: no breakdown Neuro CN's II-XII intact bilaterally, moves all extremities, no focal motor deficits and no sensory deficits noted Sensorium / Orientation: awake, alert, oriented to person and oriented to place Speech: speech normal Psych affect normal Assessment & Plan Assessment/Plan (1) Encephalopathy: PLAN: Plan 1. Acute encephalopathy-etiology unclear at this point, this appears to be improving, this examiner wonders whether the patient had a seizure at home and he was postictal. PT and OT will continue to work with the patient, he will need short-term placement in the shelter facility for rehab services. #2 type 2 diabetes-blood sugar will be monitored, sliding scale insulin will be given as needed #3 seizure disorder-patient will remain on Keppra, I have decided to increase his dose of Keppra to 500 mg twice a day #4 chronic depression-patient will remain on his home medications #5 essential hypertension-patient will remain on his home medication #6 obstructive sleep apnea-patient's CPAP machine is here for use in the hospital Total clinical time spent by myself addressing the patient's medical issues, reviewing all of his data, and collaborating with patient's care team: 35 minutes Charges/Coding Visit Charges Inpatient E&M: 39725 Subs Hosp L2 07/02/23 0959 <Electronically signed by Woody Brunson DO> Cosigner Signature (if applicable): CC: ~ Signed [facility] Work Phone: 1([phone]) 136-443408-04-2023 Progress note Author Woody Brunson [facility] July 01, 2023 5:13pm Note Date/Time July 01, 2023 4:5 8pm [facility] Medical Records Department [address] [place] [address] Progress Note - Hospitalist 07/01/235 MR#: [id number] Acct: [id number] Name: JODIE CARDENAS Rep #:[id number] : 1940 83 From: Woody Brunson DO PCP: Dr. Rios Downey, DO Status:ADM IN Location: [place] [address] Reason for Visit Reason for Visit: Diagnoses Transient cerebral ischemic attack, unspecified (06/30/23) Encephalopathy, unspecified (06/30/23) Subjective Subjective Was seen and examined today, his labs do not indicate an infection, his chemistry panel is improving. He still remains confused however, earlier today he was able to attempt to feed himself. I talked with the granddaughter who wasin the room at the time my examination, patient will need to go to an extended care facility for rehab services upon discharge from the hospital. Objective Data Objective Data Vital Signs: Vital Signs Temp Pulse Resp BP Pulse Ox O2 Del Method O2 Flow Rate 97.9 F 69 18 107/69 98 Nasal Cannula 4.5 07/01/23 15:00 07/01/23 15:00 07/01/23 15:00 07/01/23 15:00 07/01/23 15:00 07/01/23 15:13 07/01/23 15:13 Oxygen Flow Rate (L/min) 4.5 Oxygen Delivery Method Nasal Cannula Weight: 113.7 kg Body Mass Index (BMI) 41.7 Intake & Output: Intake and Output for Last 24 Hours 06/29/23 06/30/23 07/01/23 23:59 23:59 23:59 Intake Total 120 / 120 1190 / 1190 Output Total 100 / 100 0 / 0 Balance / 20 1190 / 1190 Lab / Micro Data 07/01/23 05:14 07/01/23 05:14 Labs: Laboratory Results - last 24 hr 06/30/23 17:01: POC Glucose 140 H 06/30/23 22:37: POC Glucose 116 H 07/01/23 05:14: WBC 9.3, RBC 3.55 L, Hgb 11.4 L, Hct 34.8 L, MCV 98.0 H, MCH 32.1 H, MCHC 32.8, RDW Std Deviation 51.6 H, RDW Coeff of Yeny 14.3, Plt Count 116 L, MPV 11.0, Immature Gran % (Auto) 0.300, Neut % (Auto) 76.6 H, Lymph % (Auto) 14.4 L, Dyer % (Auto) 7.7, Eos % (Auto) 0.6, Baso % (Auto) 0.4, Absolute Neuts (auto) 7.1, Absolute Lymphs (auto) 1.34, Nucleated RBC % 0, Sodium 139, Potassium 4.4, Chloride 109 H, Carbon Dioxide 25.0, Anion Gap 5, BUN 44 H, Creatinine 2.12 H, Estim Creat Clear Calc 23.37, Est GFR (MDRD) Af Amer 39 L, Est GFR (MDRD) Non-Af 32 L, BUN/Creatinine Ratio 20.8 H, Glucose 129 H, Calcium 9.0, Total Bilirubin 1.50 H, AST 21, ALT 14 L, Alkaline Phosphatase 134 H, TotalProtein 7.2, Albumin 3.1 L, Globulin 4.1, Albumin/Globulin Ratio 0.8 L 07/01/23 08:27: POC Glucose 118 H 07/01/23 11:47: POC Glucose 153 H Rhythm Strip Rhythm Strip: A-fib Rate: 43 Ectopy: None Physical Exam Narrative Patient is morbidly obese Const Constitutional Narrative: Patient is lethargic, he does awaken to verbal stimuli and tactile stimuli, he does not carry on a conversation, he appears confused General Appearance: cooperative, well kempt and well developed HEENT normocephalic, head/scalp atraumatic and moist oral mucous membranes Eyes PERRL, EOMs intact bilaterally and conjunctivae normal Neck supple, no JVD, thyroid normal and no carotid bruits General: trachea midline Resp normal respiratory effort, no retractions, no use of accessory muscles and clearto auscultation bilaterally Auscultation: Negative for rales, rhonchi or wheezes Cardio regular rate, regular rhythm, S1 normal heart sound, S2 normal heart sound, no murmurs, no rub and no gallops GI normal to inspection, nondistended, normoactive bowel sounds, soft to palpation,non-tender and non-distended Extremity no clubbing, cyanosis or edema Skin no rashes or lesions noted General Skin Exam: no breakdown Neuro CN's II-XII intact bilaterally, moves all extremities and no focal motor deficits Neuro Narrative: Patient is lethargic, he does respond to verbal and tactile stimulation, he is confused Psych Psych Narrative: Patient is confused Assessment & Plan Assessment/Plan (1) Encephalopathy: PLAN: Plan 1. Acute encephalopathy-etiology unclear at this point, supportive care will begiven and the patient will be reevaluated tomorrow, he shows no sign of an infection at this time, MRI of the brain did not show any evidence of stroke. Patient will continue to be seen by PT and OT, he will most likely need temporary placement in a shelter facility. #2 type 2 diabetes-blood sugar will be monitored, sliding scale insulin will be given as needed #3 seizure disorder-patient will remain on Keppra #4 chronic depression-patient will remain on his home medications #5 essential hypertension-patient will remain on his home medication #6 obstructive sleep apnea-patient's CPAP machine is here for use in the hospital Total clinical time spent by myself addressing the patient's medical issues, reviewing all of his data, and collaborating with patient's care team: 35 minutes Charges/Coding Visit Charges Inpatient E&M: 57500 Subs Hosp L2 07/01/23 1713 <Electronically signed by Woody Brunson DO> Cosigner Signature (if applicable): CC: ~ Signed [facility] Work Phone: 1(726) 124-680608-03-2023 Progress note Author Woody [facility]red [facility] June 30, 2023 7:55pm Note Date/Time June 30, 2023 6:4 1pm [facility] System Medical Records Department [address] [place] [address] Progress Note - Hospitalist 06/30/23 1834 MR#: [id number] Acct: [id number] Name: JODIE CARDENAS Rep #:[id number] : 1940 83 From: Woody Brunson DO PCP: Dr. Rios Downey, DO Status:ADM IN Location: [place] [address] Reason for Visit Reason for Visit: Diagnoses Transient cerebral ischemic attack, unspecified (06/30/23) Subjective Subjective Patient was seen and examined today, he remains confused, I talked at length with the granddaughter who was in the room at the time my examination. Patient's MRI of the brain did not show a stroke, I obtained an ammonia level which was normal and an ABG which did not show any signs of hypercapnia or hypoxia on 5 L. Patient does not recognize his granddaughter, he appears to be hallucinating, granddaughter states he does not drink alcohol, she states that he has been mildly confused at times at home but this is totally inappropriate for the patient now. I reviewed the patient's medications, I can see no medication which would cause an effect on his mentation, patient did receive Ativan according to nursing last night. Objective Data Objective Data Vital Signs: Vital Signs Temp Pulse Resp BP Pulse Ox O2 Del Method O2 Flow Rate 97.7 F L 76 18 126/99 H 93 Nasal Cannula 5 06/30/23 17:20 06/30/23 17:20 06/30/23 17:20 06/30/23 17:20 06/30/23 17:20 06/30/23 17:20 06/30/23 17:54 Oxygen Flow Rate (L/min) 5 Oxygen Delivery Method Nasal Cannula Weight: 113.2 kg Body Mass Index (BMI) 41.5 Intake & Output: Intake and Output for Last 24 Hours 06/28/23 06/29/23 06/30/23 23:59 23:59 23:59 Intake Total 120 / 120 190 / 190 Output Total 100 / 100 0 / 0 Balance 190 / 190 Lab / Micro Data 06/30/23 04:45 06/30/23 04:45 Labs: Laboratory Results - last 24 hr 06/29/23 22:11: POC Glucose 99 06/30/23 04:45: WBC 10.7, RBC 3.70 L, Hgb 11.5 L, Hct 36.3 L, MCV 98.1 H, MCH 31.1, MCHC 31.7 L, RDW Std Deviation 50.9 H, RDW Coeff of Yeny 14.1, Plt Count 125 L, MPV 11.1, Immature Gran % (Auto) 0.500, Neut % (Auto) 72.4 H, Lymph % (Auto) 18.2 L, Dyer % (Auto) 7.1, Eos % (Auto) 1.3, Baso % (Auto) 0.5, Absolute Neuts (auto) 7.7, Absolute Lymphs (auto) 1.94, Nucleated RBC % 0, Sodium 140, Potassium 4.3, Chloride 107, Carbon Dioxide 28.0, Anion Gap 5, BUN 47 H, Creatinine 2.44 H, Estim Creat Clear Calc 20.30, Est GFR (MDRD) Af Amer 33 L, Est GFR (MDRD) Non-Af 27 L, BUN/Creatinine Ratio 19.3, Glucose 121 H, [id number] 5.6, Calcium 9.4, Triglycerides 98, Cholesterol 75, LDL Cholesterol 25, VLDLCholesterol 20, HDL Cholesterol 30 L, TSH 5.37 H 06/30/23 08:25: POC Glucose 129 H 06/30/23 11:59: POC Glucose 116 H 06/30/23 14:51: Ammonia 28.0 06/30/23 17:01: POC Glucose 140 H ABG Data ABG results: ABG 06/30/23 15:17 Specimen Type ART Sample Site R Radial pH 7.45 Bicarbonate Actual 24.2 Total CO2 25 Base Excess 0 O2 Saturation 97 ABG pCO2 34.5 L ABG pO2 81 Pavel Test Positive O2 Delivery Device Cannula Liter Flow 5.0 Radiography Diagnostic Testing: Radiology Impression Brain MRI 06/29/23 15:35 IMPRESSION: No evidence for acute infarct. Chronic involutional and white matter changes. Electronically Signed: Ara Altamirano MD at 11:41 EDT , Carotid Duplex 06/29/23 15:35 Interpretation Summary Mild (<50%) stenosis right extracranial internal carotid. Mild (<50%) stenosis left extracranial internal carotid. Patent and antegrade vertebrals bilaterally. Ordering Physician: Rigoberto Ashley Referring Physician: Rios Downey Performed By: Nikkie Holliday RVT Rhythm Strip Rhythm Strip: A-fib Rate: 43 Ectopy: None Physical Exam Narrative Patient is morbidly obese Const Constitutional Narrative: Patient is lethargic, he does awaken to verbal stimuli and tactile stimuli, he does not carry on a conversation, he appears confused General Appearance: cooperative, well kempt and well developed HEENT normocephalic, head/scalp atraumatic and moist oral mucous membranes Eyes PERRL, EOMs intact bilaterally and conjunctivae normal Neck supple, no JVD, thyroid normal and no carotid bruits General: trachea midline Resp normal respiratory effort, no retractions, no use of accessory muscles and clearto auscultation bilaterally Auscultation: Negative for rales, rhonchi or wheezes Cardio regular rate, regular rhythm, S1 normal heart sound, S2 normal heart sound, no murmurs, no rub and no gallops GI normal to inspection, nondistended, normoactive bowel sounds, soft to palpation,non-tender and non-distended Extremity no clubbing, cyanosis or edema Skin no rashes or lesions noted General Skin Exam: no breakdown Neuro CN's II-XII intact bilaterally, moves all extremities and no focal motor deficits Neuro Narrative: Patient is lethargic, he does respond to verbal and tactile stimulation, he is confused Psych Psych Narrative: Patient is confused Assessment & Plan Assessment/Plan (1) Encephalopathy: PLAN: Plan 1. Acute encephalopathy-etiology unclear at this point, supportive care will begiven and the patient will be reevaluated tomorrow, he shows no sign of an infection at this time, MRI of the brain did not show any evidence of stroke. #2 type 2 diabetes-blood sugar will be monitored, sliding scale insulin will be given as needed #3 seizure disorder-patient will remain on Keppra #4 chronic depression-patient will remain on his home medications #5 essential hypertension-patient will remain on his home medication #6 obstructive sleep apnea-patient's CPAP machine is here for use in the hospital Total clinical time spent by myself addressing the patient's medical issues, reviewing all of his data, and collaborating with patient's care team: 35 minutes Charges/Coding Visit Charges Inpatient E&M: 40538 Subs Hosp L2 06/30/231954 <Electronically signed by Woody Brunson DO> Cosigner Signature (if applicable): CC: ~ Signed [facility] Work Phone: 1(108) 368-548808-02-2023 Discharge summary Author Angélica Palomo [facility] June 29, 2023 3:48pm Note Date/Time June 29, 2023 2:3 2pm [facility] System Medical Records Department [address] [place] [address] Emergency Department Summary 06/29/23 MR#: [id number] Acct: [id number] Name: JODIE CARDENAS Rep #:[id number] : 1940 83 From: Angélica Encinas PCP: Dr. Rios Downey, DO Status:ADM GUZMAN Location: [address] History of Present Illness Chief Complaint: Stroke Alert Informant: patient, family and EMS Narrative Narrative: Patient is an 83-year-old male with history of TIAs, nonrheumatic aortic stenosis (aortic valve replacements), left bundle branch block, hypertension, proximal atrial fibrillation (on Eliquis), obstructive sleep apnea, chronic hypoxic respiratory failure on home oxygen as well as chronic heart failure presenting from home for concern of increased confusion and garbled speech. Granddaughter who provides a history. She states that sometimes he forgets things but she will put him to bed and when he wakes up he will be fine. She states that he had episode like that yesterday which is typical. When she got home from work (she works third shift) he was sleeping in the chair and seemed confused. At he thought it was 9 or 10:00 and when she told him it was 8:33 he thought there was just something wrong with the clock she had. She also notes she is acting slightly out of character. She went to bed and awoke later in themorning when she woke him up he seemed normal. However he did not follow her out of the room and seemed confused again. He was fidgeting with his oxygen andCPAP. He then was slurring his words and she could not really understand what he was saying. At that time patient called 911. This was at 11:45 AM. EMS reports that patient was having expressive aphasia and slurred speech as well assome generalized confusion. Stroke alert was called in the field. 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 of coronary artery of nikolski heart without angina pectoris Atrial fibrillation with rapid ventricular response (07/11/16) Cholecystitis Chronic combined systolic and diastolic CHF (congestive heart failure) Chronic renal failure, stage 3 (moderate) Chronic respiratory failure with hypoxia COPD (chronic obstructive pulmonary disease) Essential (primary) hypertension Hyperlipemia Left bundle branch block Localized edema Lymphedema Morbid obesity with BMI of 45.0-49.9, adult Non-rheumatic aortic stenosis Obstructive sleep apnea Ocular migraine Paroxysmal atrial fibrillation Restrictive airway disease Right lower lobe pneumonia Sepsis TIA (transient ischemic attack) Type 2 diabetes mellitus without complications Venous insufficiency of both lower extremities Home Medications aspirin 81 mg tablet,delayed release 81 mg PO DAILY HEART HEALTH 07/11/16 [History Last Taken 01/29/20] atorvastatin 40 mg tablet 40 mg PO QHS CHOLSTEROL 07/11/16 [History Last Taken 01/29/20] multivitamin 1 ea PO DAILY HEALTH MAINTENANCE 07/11/16 [History Last Taken 01/29/20] insulin regular human 100 unit/mL injection solution 25 unit subcut BID [id number]/27/16 [History Last Taken 01/29/20] cholecalciferol (vitamin D3) 25 mcg (1,000 unit) tablet 25 mcg PO DAILY SUPPLEMENT 10/26/16 [History Last Taken 01/29/20] sertraline 25 mg tablet 25 mg PO DAILY DEPRESSION 01/10/18 [History Last Taken 01/29/20] insulin NPH isoph U-100 human 100 unit/mL subcutaneous suspension 25 unit subcutBID DIABETES 03/08/18 [History Last Taken 01/29/20] metoprolol tartrate 25 mg tablet 12.5 mg PO BID BLOOD PRESSURE 09/27/19 [History Last Taken 01/29/20] famotidine 20 mg tablet 20 mg PO DAILY GERD 11/13/19 [History Last Taken 01/29/20] olanzapine 2.5 mg tablet 2.5 mg PO QHS DEPRESSION 11/13/19 [History Last Taken 01/29/20] allopurinol 300 mg tablet 150 mg PO DAILY GOUT 12/07/21 [History Last Taken Unknown] levetiracetam 500 mg tablet 250 mg PO BID SEIZURES 12/07/21 [History Last Taken Unknown] psyllium husk 0.4 gram capsule 0.4 g PO BID CONSTIPATION 12/07/21 [History Last Taken Unknown] furosemide 40 mg tablet 40 - 80 mg (1 - 2 x 40 mg) PO DAILY #180 tabs 09/17/22 [Rx Last Taken Unknown] apixaban 2.5 mg tablet (Eliquis) 2.5 mg PO BID BLOOD THINNER 10/07/22 [History Last Taken Unknown] calcitriol 0.25 mcg capsule 0.5 mcg PO MOWEFR SUPPLEMENT 10/07/22 [History Last Taken Unknown] isosorbide mononitrate 30 mg tablet,extended release 24 hr 30 mg PO DAILY HEART #90 tabs 02/01/23 [Rx Last Taken Unknown] Allergy/AdvReac Type Severity Reaction Status Date / Time Penicillins [PCN] Allergy Swelling Verified 01/31/23 15:29 Family History Father Myocardial infarction Mother CVA (cerebral vascular accident) Brother CAD (coronary artery disease) Diabetes Surgical History H/O aortic valve replacement (02/24/16) H/O coronary artery bypass surgery (02/24/16) Hx of cholecystectomy (01/13/17) Social History Smoking Status: Former smoker how long ago did patient quit smokin + years alcohol intake: never substance use type: does not use caffeine: Yes Type: carbonated beverages and tea ROS ROS ED Eyes Eyes: Denies blurry vision Cardiovascular Cardiovascular: Denies chest pain or palpitations Respiratory/Chest Respiratory/Chest: Denies cough or dyspnea Gastrointestinal Gastrointestinal: Denies nausea or vomiting Musculoskeletal Musculoskeletal: Denies arthralgias or myalgias Neurologic Neurologic: Reports weakness and other Details: Slurred speech, confusion Psychiatric Psychiatric: Denies anxiety Hematologic/Lymphatic Hematologic/Lymphatic: Reports easy bleeding and easy bruising EXAM Physical Exam Const Vital Signs: 06/29/23 12:36 06/29/23 12:49 06/29/23 12:49 Temperature 96.6 F L Temperature Source Temporal Pulse Rate 46 L Respiratory Rate 18 Blood Pressure 172/86 H Blood Pressure Mean 114 Pulse Ox 96 Oxygen Delivery Method Nasal Cannula Nasal Cannula Oxygen Flow Rate (L/min) 4 4 06/29/23 12:49 06/29/23 13:36 Temperature Temperature Source Pulse Rate 57 L 47 L Respiratory Rate 19 H 21 H Blood Pressure 172/86 H 156/60 H Blood Pressure Mean 114 92 Pulse Ox 95 96 Oxygen Delivery Method Nasal Cannula Nasal Cannula Oxygen Flow Rate (L/min) 4 4 Positive well nourished and well developed Constitutional Narrative: Chronically ill-appearing General Appearance ED: well developed HEENT Reports moist mucous membranes Eyes PERRL and EOMs intact bilaterally Neck supple and no JVD Chest Wall inspection of chest normal and palpation of chest normal Resp normal respiratory effort Cardio Rate: bradycardia Rhythm: regular rhythm GI non-tender and non-distended Extremity General Extremety ED: Yes edema; Negative for deformity General Extremity: edema; Negative for deformity Neuro CN's II-XII intact bilaterally and no sensory deficits noted Neuro Narrative: NIH equals 1 as patient states the month is December No dysarthria or expressive aphasia appreciated at this time Sensorium / Orientation: alert, oriented to person, oriented to place and confused Speech: speech normal Motor Exam: general weakness Psych mental status grossly normal Skin no wounds NIHSS NIHSS Initial: 1a Level of Consciousness: 0 1b LOC Questions (Score 2 if aphasic/stupor): 1 1c LOC Commands (Only score 1st attempt): 0 2 Best Gaze (If aphasic, use reflexive mvmts.): 0 3 Visual: 0 4 Facial Palsy: 0 5 Motor Arm Right (UN = amputation/fusion): 0 5 Motor Arm Left: 0 6 Motor Leg Right: 0 6 Motor Leg Left: 0 7 Limb ataxia (Only + if out of proportion): 0 8 Sensory (Aphasia/stupor=0 or 1, coma=2): 0 9 Best Language: 0 10 Dysarthria (mute, coma=2, intubated=UN): 0 11 Extinction and Inattention (only scored if +): 0 Total Score: 1 MDM MDM MDM Narrative Medical decision making narrative: Patient evaluated for episode of confusion as well as concern for slurred speech/expressive aphasia. Stroke alert was called in route. Patient is have a history of TIAs. Patient evaluated immediately at the door. Vital signs are significant for hypertension mild bradycardia. His symptoms seem to be improving however. His NIH is 1 only for not knowing the month. CT of the brain is ordered and stroke evaluation through telestroke/[facility] was performed. Case discussed with Dr. Tavarez, teleneurology, who agrees that patient is not a TNK candidate as he is on Eliquis as well as with his low NIH/resolving symptoms. Is possible he could have had a stroke/TIA versus some type of epileptic episode versus metabolic process causing the symptoms. Patient will be admitted to the hospital for further evaluation of this. CT is not performed as patient does have CKD and his creatinine is 2.48. Patient does have some intermittent episodes of bradycardia down into the 30s while in the ER however he remains asymptomatic during these. VBG was obtained as patient has chronic heart failure and concern of possible hypercapnia as a cause of his symptoms. His pH is actually mildly alkalotic and PCO2 is appropriate so I think this is less likely. He does not have a leukocytosis, acute anemia or other signs of an acute infection or symptomatic anemia as a cause of his symptoms. No acute electrode abnormalities today. Work-up otherwise largely on remarkable and the exact cause of the patient's symptoms is not clear. Case is discussed with admitting physician, Dr. Ashley. Patient has no progression of symptoms while in the emergency room and is returned to his baseline. Lab Data Attestation: I reviewed the patient's lab results. Labs: Laboratory Results - last 24 hr 06/29/23 12:40 WBC 9.5 RBC 3.69 L Hgb 11.6 L Hct 36.7 L MCV 99.5 H MCH 31.4 MCHC 31.6 L RDW Std Deviation 51.5 H RDW Coeff of Yeny 14.2 Plt Count 143 L MPV 11.3 Immature Gran % (Auto) 0.500 Neut % (Auto) 70.0 Lymph % (Auto) 21.1 Dyer % (Auto) 6.4 Eos % (Auto) 1.4 Baso % (Auto) 0.6 Absolute Neuts (auto) 6.7 Absolute Lymphs (auto) 2.01 Nucleated RBC % 0 PT 18.0 H INR 1.5 APTT 40.4 H Sodium 141 Potassium 4.7 Chloride 107 Carbon Dioxide 28.0 Anion Gap 6 BUN 47 H Creatinine 2.48 H Estim Creat Clear Calc 19.98 Est GFR (MDRD) Af Amer 32 L Est GFR (MDRD) Non-Af 27 L BUN/Creatinine Ratio 19.0 Glucose 102 Calcium 9.9 Phosphorus 3.9 Magnesium 1.9 Troponin I High Sens 66 ABG Data ABG results: ABG 06/29/23 13:10 Specimen Type AYE VBG pH 7.46 H VBG pO2 64 H VBG HCO3 25 VBG Total CO2 26 VBG O2 Sat (Calc) 93 H VBG Base Excess 1 POC Mix VBG pCO2 Pt Tmp 34.8 L Liter Flow 4.0 Radiography Diagnostic Testing: Clinical Impression(s) from Imaging Studies Brain CT 06/29/23 12:46 IMPRESSION: Chronic involutional changes of the brain. N.B. : The above Results were Read Back by Mahendra Canada MD to Angélica Palomo and understanding confirmed on 06/29/2023 13:00:06 (ET). Electronically Signed: Mahendra Canada MD at 13:01 EDT , ADDENDUM: 06/29/23 1308 IMPRESSION: Chronic involutional changes of the brain. N.B. : The above Results were Read Back by Mahendra Canada MD to Angélica Palomo and understanding confirmed on 06/29/2023 13:00:06 (ET). Electronically Signed: Mahendra Canada MD at 13:01 EDT , Chest X-Ray 06/29/23 13:14 IMPRESSION: Cardiomegaly. The lungs are clear. Electronically Signed: Mahendra Canada MD at 13:51 EDT , Rhythm Strip Rhythm Strip: A-fib Rate: 43 Ectopy: None EKG Initial EKG: Attestation: I personally reviewed and interpreted this EKG as follows: Interpretation: Atrial Fibrillation Comments: Atrial fibrillation with slow ventricular response with a rate of 43 bpm Left bundle branch block Left axis Nonspecific T wave changes Compared to prior EKG on 11/06/2020, patient does not have any significant foreign exchange clerk Discussion w/another healthcare provider: Hospitalist and Community Nurse Discharge Plan Dx/Rx/DC Orders Clinical Impression: Essential (primary) hypertension, TIA (transient ischemic attack), Paroxysmal atrial fibrillation Disposition Disposition: Acute Care Hospital [facility] Discharge Date/Time: 06/29/23 14:54 What to do if you have Problems For any increased pain, shortness of breath, bleeding, nausea or vomiting, chest pain, or any unexpected problems, contact your Primary Care Provider. Call [facility] ([phone]) or report to the closest Emergency Room. Call 911 if necessary. 06/29/23 1546 <Electronically signed by Angélica Palomo DO> Cosigner Signature (if applicable): CC: Dr. Rios Downey DO ~ Signed [facility] Work Phone: 1(830) 135-833408-02-2023 History and physical note Author Rigobertoyamilex Ashley [facility] June 29, 2023 3:09pm Note Date/Time June 29, 2023 2:2 7pm [facility] Medical Records Department [address] [place] [address] H&P Exam - Hospitalist 06/29/23 1424 MR#: [id number] Acct: [id number] Name: JODIE CARDENAS Rep #:[id number] : 1940 83 From: Rigoberto Bustos PCP: Dr. Rios Downey DO Status:ADM GUZMAN Location: [place] [address] HPI - General General Date of Admission: 06/29/23 Date of Service: 06/29/23 Chief Complaint: Confusion and slurred speech/language deficit, dysarthria in the morning HPI Narrative JODIE CARDENAS, is a 83 M with multiple comorbidities as listed below while brought toED by EMS for confusion, slurred speech mild language deficit about 11:45 AM today. Stroke alert was called and patient was seen by [facility], telestroke. Patient granddaughter is near bedside therefore history mainly was taken from her and from the patient. Apparently felt weak yesterday but in the morning he was confused. As per the granddaughter, he could not understand the conversation, his sentences were not making sense and was garbled. He was also slurring with dysarthria. This got better in the ER. Patient cannot understand and answer simple question. He is still disoriented to time and he answered wrong with a month in the ER. Patient has DARRYL on CKD stage IV therefore CT angiogram was not done. Patient also has A-fib with slow ventricular response and heart rate drops into the 40s. Currently in low 50s. Patient on metoprolol 12.5 mg twice daily. Patient has history of four-vessel CABG, AVR, chronic combined heart failure, obstructive sleep apnea and oxygen and BiPAP and chronic A-fib [facility] Medical History Acute exacerbation of CHF (congestive heart failure) Acute on chronic diastolic (congestive) heart failure Acute respiratory failure with hypoxia Anemia Atherosclerosis of coronary artery bypass graft without angina pectoris Atherosclerosis of coronary artery of nikolski heart without angina pectoris Atrial fibrillation with rapid ventricular response (07/11/16) Cholecystitis Chronic combined systolic and diastolic CHF (congestive heart failure) Chronic renal failure, stage 3 (moderate) Chronic respiratory failure with hypoxia COPD (chronic obstructive pulmonary disease) Essential (primary) hypertension Hyperlipemia Left bundle branch block Localized edema Lymphedema Morbid obesity with BMI of 45.0-49.9, adult Non-rheumatic aortic stenosis Obstructive sleep apnea Ocular migraine Paroxysmal atrial fibrillation Restrictive airway disease Right lower lobe pneumonia Sepsis TIA (transient ischemic attack) Type 2 diabetes mellitus without complications Venous insufficiency of both lower extremities Home Medications aspirin 81 mg tablet,delayed release 81 mg PO DAILY HEART HEALTH 07/11/16 [History Last Taken 01/29/20] atorvastatin 40 mg tablet 40 mg PO QHS CHOLSTEROL 07/11/16 [History Last Taken 01/29/20] multivitamin 1 ea PO DAILY HEALTH MAINTENANCE 07/11/16 [History Last Taken 01/29/20] insulin regular human 100 unit/mL injection solution 25 unit subcut BID [id number]/27/16 [History Last Taken 01/29/20] cholecalciferol (vitamin D3) 25 mcg (1,000 unit) tablet 25 mcg PO DAILY SUPPLEMENT 10/26/16 [History Last Taken 01/29/20] sertraline 25 mg tablet 25 mg PO DAILY DEPRESSION 01/10/18 [History Last Taken 01/29/20] insulin NPH isoph U-100 human 100 unit/mL subcutaneous suspension 25 unit subcutBID DIABETES 03/08/18 [History Last Taken 01/29/20] metoprolol tartrate 25 mg tablet 12.5 mg PO BID BLOOD PRESSURE 09/27/19 [History Last Taken 01/29/20] famotidine 20 mg tablet 20 mg PO DAILY GERD 11/13/19 [History Last Taken 01/29/20] olanzapine 2.5 mg tablet 2.5 mg PO QHS DEPRESSION 11/13/19 [History Last Taken 01/29/20] allopurinol 300 mg tablet 150 mg PO DAILY GOUT 12/07/21 [History Last Taken Unknown] levetiracetam 500 mg tablet 250 mg PO BID SEIZURES 12/07/21 [History Last Taken Unknown] psyllium husk 0.4 gram capsule 0.4 g PO BID CONSTIPATION 12/07/21 [History Last Taken Unknown] furosemide 40 mg tablet 40 - 80 mg (1 - 2 x 40 mg) PO DAILY #180 tabs 09/17/22 [Rx Last Taken Unknown] apixaban 2.5 mg tablet (Eliquis) 2.5 mg PO BID BLOOD THINNER 10/07/22 [History Last Taken Unknown] calcitriol 0.25 mcg capsule 0.5 mcg PO MOWEFR SUPPLEMENT 10/07/22 [History Last Taken Unknown] isosorbide mononitrate 30 mg tablet,extended release 24 hr 30 mg PO DAILY HEART #90 tabs 02/01/23 [Rx Last Taken Unknown] Allergy/AdvReac Type Severity Reaction Status Date / Time Penicillins [PCN] Allergy Swelling Verified 01/31/23 15:29 Family History Father Myocardial infarction Mother CVA (cerebral vascular accident) Brother CAD (coronary artery disease) Diabetes Surgical History H/O aortic valve replacement (02/24/16) H/O coronary artery bypass surgery (02/24/16) Hx of cholecystectomy (01/13/17) Social History Smoking Status: Former smoker how long ago did patient quit smokin + years alcohol intake: never substance use type: does not use caffeine: Yes Type: carbonated beverages and tea ROS ROS Narrative 14 system ROS is not complete as patient is confused and disoriented. Mainly taken from patient's granddaughter near the bedside. Constitutional: Reports fatigue and weakness. No fever. HEENT: Reports systems reviewed and no addt'l complaints, except as documented Respiratory/Chest: No acute shortness of breath or respiratory distress or wheezing. On baseline oxygen and BiPAP CVS: Denies chest pain tightness or pressure Gastrointestinal: Denies coffee ground emesis, hematemesis or vomiting Genitourinary: Not clear patient cannot give history Musculoskeletal: Chronic joint pain and limited range of motion. No acute injury Neurologic: Denies seizure-like symptoms. skin: History of bilateral lower legs great saphenous vein retrieved for CABG. Venous hypertension Endocrinology: Reports systems reviewed and no addt'l complaints, except as documented Hematologic/Lymphatic: Reports systems reviewed and no addt'l complaints, except as documented Rest 14 ROS are negative except as mentioned in HPI Review of Systems ROS Unobtainable: due to encephalopathy Vital Signs Vital Signs Vital Signs: 06/29/23 12:36 06/29/23 12:49 06/29/23 12:49 Temperature 96.6 F L Temperature Source Temporal Pulse Rate 46 L Respiratory Rate 18 Blood Pressure 172/86 H Blood Pressure Mean 114 Pulse Ox 96 Oxygen Delivery Method Nasal Cannula Nasal Cannula Oxygen Flow Rate (L/min) 4 4 06/29/23 12:49 Temperature Temperature Source Pulse Rate 57 L Respiratory Rate 19 H Blood Pressure 172/86 H Blood Pressure Mean 114 Pulse Ox 95 Oxygen Delivery Method Nasal Cannula Oxygen Flow Rate (L/min) 4 Weight Weight: 265 lb 3.457 oz Body Mass Index (BMI) 44.1 Physical Exam Narrative General: Awake, alert, disoriented to time and situation. Cooperative, morbid obesity BMI 44.1 kg/m? HEENT: Atraumatic, PERRLA, EOMI, Normocephalic Oral: Oral mucosa dry. Deep oropharyngeal extension could not be visualized Neck: Supple, No JVD, Negative Carotid Bruits Lungs: Air entry diminished in bilateral lung bases. No crepitation/rhonchi Cardiovascular: A-fib with slow ventricular response. Systolic murmur present LLSB. Abdomen: Bowel Sounds Present, Soft, Non Tender, Non-Distended : No renal angle tenderness. No suprapubic tenderness. Extremities: Mild pitting edema, Capillary Refill Less than 3 Seconds Skin: Venous hypertension changes in lower legs with incompetence deep veins. Increase pigmentation Musculoskeletal: No Tenderness to Palpation of Joints or Extremities. ROM restricted. Degenerative arthritis Neurological: Cranial nerves II-XII grossly intact, DTR 2+/4. No acute weakness or sensory change. Confused. Mild language deficit and dysarthria resolved. NIH stroke scale 1. Psych/Mental Status: Flat affect. Results Lab / Micro Data 06/29/23 12:40 06/29/23 12:40 Labs: Laboratory Results - last 24 hr 06/29/23 12:40: WBC 9.5, RBC 3.69 L, Hgb 11.6 L, Hct 36.7 L, MCV 99.5 H, MCH 31.4, MCHC 31.6 L, RDW Std Deviation 51.5 H, RDW Coeff of Yeny 14.2, Plt Count 143 L, MPV 11.3, Immature Gran % (Auto) 0.500, Neut % (Auto) 70.0, Lymph % (Auto) 21.1, Dyer % (Auto) 6.4, Eos % (Auto) 1.4, Baso % (Auto) 0.6, Absolute Neuts (auto) 6.7, Absolute Lymphs (auto) 2.01, Nucleated RBC % 0, PT 18.0 H, INR 1.5, APTT 40.4 H, Sodium 141, Potassium 4.7, Chloride 107, Carbon Dioxide 28.0, Anion Gap 6, BUN 47 H, Creatinine 2.48 H, Estim Creat Clear Calc 19.98, Est GFR (MDRD) Af Amer 32 L, Est GFR (MDRD) Non-Af 27 L, BUN/Creatinine Ratio 19.0, Glucose 102, Calcium 9.9, Troponin I High Sens 66 ABG Data ABG results: ABG 06/29/23 13:10 Specimen Type AYE VBG pH 7.46 H VBG pO2 64 H VBG HCO3 25 VBG Total CO2 26 VBG O2 Sat (Calc) 93 H VBG Base Excess 1 POC Mix VBG pCO2 Pt Tmp 34.8 L Liter Flow 4.[address] 06/29/23 12:46 IMPRESSION: Chronic involutional changes of the brain. N.B. : The above Results were Read Back by Mahendra Canada MD to Angélica Palomo and understanding confirmed on 06/29/2023 13:00:06 (ET). Electronically Signed: Mahendra Canada MD at 13:01 EDT , ADDENDUM: 06/29/23 1308 IMPRESSION: Chronic involutional changes of the brain. N.B. : The above Results were Read Back by Mahendra Canada MD to Angélica Palomo and understanding confirmed on 06/29/2023 13:00:06 (ET). Electronically Signed: Mahendra Canada MD at 13:01 EDT , Chest X-Ray 06/29/23 13:14 IMPRESSION: Cardiomegaly. The lungs are clear. Electronically Signed: Mahendra Canada MD at 13:51 EDT , Assessment & Plan Assessment/Plan (1) TIA (transient ischemic attack): PLAN: Plan This is a 81-year-old gentleman being admitted for generalized weakness confusion and work-up for TIA 1. Confusion disorientation possible acute encephalopathy probably metabolic encephalopathy or TIA: Patient is being admitted in PCU. NIH stroke scale 1 for telling wrong month. PT, OT, speech therapy/swallow evaluation and management, nursing NIH stroke scale, BP and glucose monitoring and control as per stroke protocol. TSH, A1c fasting lipid profile tomorrow AM. MRI brain and 2D echo with bubble contrast study ordered. Patient is at risk for contrast induced nephropathy for CT or MRI contrast therefore carotid Doppler ordered. Continue baby aspirin and high intensity atorvastatin 2. CKD stage V: Patient baseline creatinine stays between 2.84-3.4. Currently it is 2.48. During previous admission for for pneumonia in January 2022 patient was started on oxygen and [facility] nephrology saw the patient. Patient is on Lasix 40 mg daily, start from tomorrow AM. 3. Multiple cardiac conditions including chronic A-fib with slow ventricular response, coronary artery disease status post 2 times CABG, chronic systolic and diastolic heart failure and hypertension: BP is 150/63 on permissive hypertensive range. Hold losartan. Patient also has slow ventricular response therefore hold metoprolol for heart rate less than 50/min. Patient on aspirin and Eliquis at home therefore continued 4. Chronic hypoxic respiratory failure, morbid obesity, BMI 44.1 kg/m?, obstructive sleep apnea/obesity hypoventilation syndrome on BiPAP: Patient follows Dr. Cline. As per last PFT, patient has mild restrictive ventilatory impairment. Patient on BiPAP and 2 L of home oxygen continued. 5. Type 2 diabetes mellitus: Patient glucose on BMP is low 102. As per EMS, Accu-Chek was 125. Acute [place] covered with sliding scale. Home dose of NPH insulin decreased and titrate as per Accu-Cheks. DVT Prophylaxis, high risk: Patient is on Eliquis. Charges/Coding Visit Charges Inpatient E&M: 59273 Init Hosp L3 Procedures Hospitalists Procedures: 52084 Advncd Care Plan 30 Min 06/29/23 1509 <Electronically signed by Rigoberto Ashley MD> Cosigner Signature (if applicable): CC: Dr. Rigoberto Ashley MD; Dr. Rios Downey DO~ Signed [facility] Work Phone: [phone]) 432-820706-17-2023 Note. MICRO - Microbiology PROCEDURE: Urine Culture [*1] [...] Locations *1: This test was performed at: [facility], [address] [place] [address], [facility] , [facility] ([place])02-24-2016 Evaluation note* Diagnosis Onset Date Resolution Status Atherosclerosis of coronary artery of [place] heart without angina pectoris chronic Essential (primary) hypertension chronic H/O aortic valve replacement February 24, 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, 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 Hyperlipemia chronic Paroxysmal atrial fibrillation [facility] Work Phone: [phone]) 844-369303-29-2016 Evaluation note* Diagnosis Onset Date Resolution Status Obstructive 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 apnea 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 Atherosclerosis of coronary artery of [place] heart without angina pectoris chronic Essential (primary) hypertension chronic H/O aortic valve replacement February 24, 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 Hyperlipemia chronic Paroxysmal atrial fibrillation [facility] Work Phone: [phone]) 953-865603-29-2016 Evaluation note* Diagnosis Onset Date Resolution Status Atherosclerosis of coronary artery of [place] heart without angina pectoris chronic Essential (primary) hypertension chronic H/O aortic valve replacement February 24, 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 Hyperlipemia chronic Paroxysmal atrial fibrillation [facility] Work Phone: Consult note Author Vladimir Bourgeois [facility] August 22, 2023 2:24pm Note Date/Time August 22, 2023 2:24pm [facility] Medical Records Department [address] [place] [address] Counseling Note - Pharmacy 08/22/23 1424 MR#: [id number] Acct: [id number] Name: JODIE CARDENAS Rep #:[id number] : 1940 83 From: Vladimir Bourgeois PCP: Dr. Rios Downey, DO Status:ADM IN Y Location: [place] [address] Pharmacy [place] Med Reconciliation Pharmacy Service has performed discharge medication reconciliation for this patient. The patient's discharge medication list was reviewed for discrepancies and discrepancies were resolved. Medications at Discharge Home Medications aspirin 81 mg tablet,delayed release 81 mg PO DAILY HEART HEALTH 07/11/16 atorvastatin 40 mg tablet 40 mg PO QHS CHOLSTEROL 07/11/16 multivitamin 1 ea PO DAILY HEALTH MAINTENANCE 07/11/16 insulin regular human 100 unit/mL injection solution 25 unit subcut BID [id number]/27/16 cholecalciferol (vitamin D3) 25 mcg (1,000 unit) tablet 25 mcg PO DAILY SUPPLEMENT 10/26/16 sertraline 25 mg tablet 25 mg PO DAILY DEPRESSION 01/10/18 insulin NPH isoph U-100 human 100 unit/mL subcutaneous suspension 25 unit subcutBID DIABETES 03/08/18 famotidine 20 mg tablet 20 mg PO DAILY GERD 11/13/19 olanzapine 2.5 mg tablet 2.5 mg PO QHS DEPRESSION 11/13/19 allopurinol 300 mg tablet 150 mg PO DAILY GOUT 12/07/21 apixaban 2.5 mg tablet (Eliquis) 2.5 mg PO BID BLOOD THINNER 10/07/22 calcitriol 0.25 mcg capsule 0.5 mcg PO MOWEFR SUPPLEMENT 10/07/22 isosorbide mononitrate 30 mg tablet,extended release 24 hr 30 mg PO DAILY HEART #90 tabs 02/01/23 potassium chloride 20 mEq tablet,extended release 20 meq PO DAILY potassium #1 TAB 07/03/23 psyllium husk (aspartame) 3 gram oral powder packet (Daily Fiber (psyllium-aspartame)) 1 packet PO BID constipation #0 ea 07/03/23 doxepin 10 mg capsule 10 mg PO DAILY 08/18/23 furosemide 40 mg tablet (Lasix) 40 mg PO DAILY water pill 08/18/23 levetiracetam 100 mg/mL oral solution (Keppra) 500 mg PO BID 08/18/23 menthol 0.44 %-zinc oxide 20.6 % topical ointment (Calmoseptine) 1 applic topical BID 08/18/23 nystatin 100,000 unit/gram topical powder (Nystop) 1 applic topical BID 08/18/23 sennosides 8.6 mg-docusate sodium 50 mg tablet (2-in-1 Laxative) 1 tab-cap PO BID 08/18/23 08/22/23 4312 <Electronically signed by Vladimir ferrera> Date _ Vladimir Coburn Signature (if applicable): Date CC: ~ Signed [facility] Work Phone: Evaluation + Plan note Future Appointments Appointment Date:07/25/2024 04:00:00 PM Scheduled Provider:RIOS DOWNEY DO Location:[facility] Appointment Type: OV Future Scheduled Tests Laboratory* Prostate Specific Antigen 06/08/22 * Thyroid Stimulating Hormone 06/08/22 * Free T4 06/08/22 * Lipid Profile 06/08/22 * Hepatitis C Antibody IgG 06/08/22 * Microalbumin Level Urine 06/08/22 * Prothrombin Time - Panel 06/08/22 * Prothrombin Time - Panel 07/10/22 * Prothrombin Time - Panel 07/14/22 * Vitamin D Level 06/08/22 * Complete Metabolic Panel 06/08/22 [facility] evaluation noteNo assessment information available [facility] Work Phone: Evaluation note* Diagnosis Onset Date Resolution Status Restrictive airway disease a cute Chronic renal failure, stage 3 (moderate) chronic Chronic respiratory failure with hypoxia chronic Obstructive sleep apnea 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 [facility] Work Phone: Evaluation note* Diagnosis Onset Date Resolution Status Restrictive airway disease a cute Chronic renal failure, stage 3 (moderate) chronic Chronic respiratory failure with hypoxia chronic Obstructive sleep apnea 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 Atherosclerosis of coronary artery of [place] heart without angina pectoris chronic Essential (primary) hypertension chronic H/O aortic valve replacement February 24, 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, 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 Hyperlipemia chronic Paroxysmal atrial fibrillation chronic [facility] Work Phone: Evaluation note* Diagnosis Onset Date Resolution Status Restrictive airway disease a cute Chronic respiratory failure with hypoxia chronic Obstructive sleep apnea 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 [facility] Work Phone: Evaluation note* Diagnosis Onset Date Resolution Status Obstructive sleep apnea 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 [facility] Work Phone: Evaluation note* Diagnosis Onset Date Resolution Status Encephalopathy acute TIA (transient ischemic attack) acute Essential (primary) hypertension chronic Paroxysmal atrial fibrillation chronic [facility] Work Phone: Evaluation note* Diagnosis Onset Date Resolution Status Essential (primary) hypertension chronic Paroxysmal atrial fibrillation chronic Encephalopathy resolved Aortic stenosis acute Atrial fibrillation acute Coronary artery disease acut e Debility acute Depression acute Diabetes mellitus acute Dysarthria acute Expressive aphasia acute GERD (gastroesophageal reflux disease) acute Seizure disorder acute Chronic respiratory failure chronic CKD (chronic kidney disease) stage 4, 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 Hypertension chronic Obstructive sleep apnea 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 Encephalopathy resolved [facility] Work Phone: Evaluation note* Diagnosis Onset Date Resolution Status Essential (primary) hypertension chronic Paroxysmal atrial fibrillation chronic Encephalopathy resolved Aortic stenosis acute Atrial fibrillation acute Coronary artery disease acut e Debility acute Depression acute Diabetes mellitus acute Dysarthria acute Expressive aphasia acute GERD (gastroesophageal reflux disease) acute Seizure disorder acute Chronic respiratory failure chronic CKD (chronic kidney disease) stage 4, 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 Hypertension chronic Obstructive sleep apnea 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 Encephalopathy resolved Confusion acute Debility acute [facility] Work Phone: Evaluation note* Diagnosis Onset Date Resolution Status Essential (primary) hypertension chronic Paroxysmal atrial fibrillation chronic Encephalopathy resolved Aortic stenosis acute Atrial fibrillation acute Coronary artery disease acut e Debility acute Depression acute Diabetes mellitus acute Dysarthria acute Expressive aphasia acute GERD (gastroesophageal reflux disease) acute Seizure disorder acute Chronic respiratory failure chronic CKD (chronic kidney disease) stage 4, 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 Hypertension chronic Obstructive sleep apnea 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 Encephalopathy resolved Debility acute Acute exacerbation of CHF (congestive heart failure) chronic [facility] Work Phone: Evaluation note* Diagnosis Onset Date Resolution Status Essential (primary) hypertension chronic Paroxysmal atrial fibrillation chronic Encephalopathy resolved Aortic stenosis acute Atrial fibrillation acute Coronary artery disease acut e Debility acute Depression acute Diabetes mellitus acute Dysarthria acute Expressive aphasia acute GERD (gastroesophageal reflux disease) acute Seizure disorder acute Chronic respiratory failure chronic CKD (chronic kidney disease) stage 4, 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 Hypertension chronic Obstructive sleep apnea 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 Encephalopathy resolved Debility acute Aortic stenosis acute Debility acute Acute exacerbation of CHF (congestive heart failure) chronic Chronic respiratory failure chronic CKD (chronic kidney disease) stage 4, GFR 15-29 ml/min [facility] Work Phone: Evaluation note* Diagnosis Onset Date Resolution Status Essential (primary) hypertension chronic Paroxysmal atrial fibrillation chronic Encephalopathy resolved Aortic stenosis acute Atrial fibrillation acute Coronary artery disease acut e Debility acute Depression acute Diabetes mellitus acute Dysarthria acute Expressive aphasia acute GERD (gastroesophageal reflux disease) acute Seizure disorder acute Chronic respiratory failure chronic CKD (chronic kidney disease) stage 4, 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 Hypertension chronic Obstructive sleep apnea 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 Encephalopathy resolved Debility acute Aortic stenosis acute Debility acute Acute exacerbation of CHF (congestive heart failure) chronic Chronic respiratory failure chronic CKD (chronic kidney disease) stage 4, 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 Chronic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 documented in an alternate sectionGoals may be documented in an alternate sectionGoals may be documented in an alternate sectionGoals may be documented in an alternate sectionGoals may be documented in an alternate sectionGoals may be documented in an alternate sectionGoals may be documented in an alternate sectionGoals may be documented in an alternate sectionGoals may be documented in an alternate sectionGoals may be documented in an alternate sectionGoals may be documented in an alternate sectionGoals may be documented in an alternate sectionGoals may be documented in an alternate section No data available for this sectionGoals may be documented in an alternate sectionGoals may be documented in an alternate sectionGoals may be documented in an alternate sectionGoals may be documented in an alternate sectionGoals may be documented in an alternate sectionGoals may be documented in an alternate sectionGoals may be documented in an alternate sectionGoals may be documented in an alternate sectionGoals may be documented in an alternate sectionGoals may be documented in an alternate section Care Teams (unrecognized sec tion and content) Team Status: Active Member Role Status Dates Dr. Jennifer Lu MD Family Provider Active Dr. Rios Downey , DO Primary Care Provider Active Team Status: Inactive Member Role Status Dates Dr. Jennifer Lu MD Referring Provider Active Dr. Josh Cline , DO Attending Provider Active Dr. Rios Downey DO Primary Care Provider Active Team Status: Inactive Member Role Status Dates Dr. Rios Downey , DO Primary Care Provider Active Dr. Pepe Au MD Attending Provider, Referring Provider Active Team Status: Inactive Member Role Status Dates Dr. Rios Downey DO Primary Care Provider Active Dr. Toñito Espino , DO Attending Provider, Referring Pr ovider Active Team Status: Inactive Member Role Status Dates Dr. Rios Downey , DO Primary Care Provider, Referrin g Provider Active Hector Sheldon IP/MOSAIC TECHNICIAN, IP/MOSAIC TECHNICIAN-C Attending Provider Active Team Status: Active Member Role Status Dates Dr. Rios Downey , DO Primary Care Provider Active Dr. Pepe Au MD Attending Provider, Referring Provider Active Team Status: Inactive Member Role Status Dates Dr. Rios Downey , DO Primary Care Provider Active Dr. Toñito Rudick , DO Attending Provider, Referring Pr ovider Active Dr. Pepe Au MD Other Provider Active Team Status: Active Member Role Status Dates Dr. Rios Downey , DO Primary Care Provider Active Dr. Angélica Palomo DO Emergency Provider Active Dr. Rigoberto Ashley MD Admit Provider, Attending Provi milka Active Team Status: Active Member Role Status Dates Dr. Rios Downey DO Primary Care Provider Active Dr. Angélica Palomo DO Emergency Provider Active Dr. Rigoberto Ashley MD Admit Provider, A ttending Provider, Other Provider Active Team Status: Active Member Role Status Dates Dr. Rios Downey DO Primary Care Provider Active Dr. Christian Shook MD Attending Provider Active Team Status: Active Member Role Status Dates Dr. Rios Downey DO Primary Care Provider Active Dr. Mikey Ruelas MD Attending Provider Active Team Status: Active Member Role Status Dates Dr. Rios Downey DO Primary Care Provider Active Dr. Angélica Palomo DO Emergency Provider Active Dr. Rigoberto Ashley MD Admit Provider, Other Provider Active Dr. Woody Brunson , DO Attending Provider, Other Pro vider Active Team Status: Inactive Member Role Status Dates Dr. Rios Downey DO Primary Care Provider Active Dr. Angélica Palomo DO Emergency Provider Active Dr. Rigoberto Ashley MD Admit Provider, Other Provider Active Dr. Woody Brunson , DO Attending Provider Active Team Status: Active Member Role Status Dates Dr. Rios Downey DO Primary Care Provider Active Dr. Jeremy Magallanes MD Admit Provider, Attending Provid er Active Dr. Clay Berry MD Other Provider Active Team Status: Inactive Member Role Status Dates Dr. Rios Downey DO Primary Care Provider Active Dr. Jeremy Magallanes MD Attending Provider, Referring Pr ovider Active Team Status: Active Member Role Status Dates Dr. Rios Downey DO Primary Care Provider Active Dr. Christian Shook MD Attending Provider Active Dr. Rigoberto Ashley MD Referring Provider Active Team Status: Active Member Role Status Dates Dr. Rios Downey DO Primary Care Provider Active Dr. Mikey Ruelas MD Attending Provider Active Dr. Rigoberto Ashley MD Referring Provider Active Team Status: Active Member Role Status Dates Dr. Rios Downey DO Primary Care Provider Active Dr. Jeremy Magallanes MD Attending Provider Active Team Status: Inactive Member Role Status Dates Dr. Rios Downey DO Primary Care Provider Active Dr. Jeremy Magallanes MD Attending Provider Active Team Status: Inactive Member Role Status Dates Dr. Rios Downey , DO Primary Care Provider Active Dr. Jeremy Magallanes MD Admit Provider, Attending Provid er Active Dr. Clay Berry MD Other Provider Active Team Status: Active Member Role Status Dates Dr. Rios Downey , DO Primary Care Provider Active Dr. Farhan Bonds DO Emergency Provider Active Team Status: Active Member Role Status Dates Dr. Rios Downey , DO Primary Care Provider Active Dr. Farhan Bonds DO Emergency Provider Active Dr. Patricia Alcantara MD Admit Provider, Attending Prov ider Active Team Status: Active Member Role Status Dates Dr. Rios Downey , DO Primary Care Provider Active Dr. Farhan Bonds DO Emergency Provider Active Dr. Patricia Alcantara MD Admit Provider, Other Provider Active Dr. James Camarillo MD Attending Provider, Other Provid er Active Team Status: Active Member Role Status Dates Dr. Rios Downey , Primary Care Provider Active Dr. Farhan Bonds DO Emergency Provider Active Dr. Patricia Alcantara MD Admit Provider, Other Provider Active Dr. Mikey Macias DO Attending Provider, Other Provid er Active Dr. James Camarillo MD Other Provider Active Team Status: Inactive Member Role Status Dates Dr. Rios Downey DO Primary Care Provider Active Dr. Farhan Bonds DO Emergency Provider Active Dr. Patricia Alcantara MD Admit Provider, Other Provider Active Dr. Mikey Macias DO Attending Provider Active Dr. James Camarillo MD Other Provider Active Team Status: Active Member Role Status Dates Dr. Rios Downey DO Primary Care Provider Active Dr. Cesar Medina DO Emergency Provider Active Dr. Patricia Alcantara MD Attending Provider Active Team Status: Inactive Member Role Status Dates Dr. Rios Downey DO Primary Care Provider Active Dr. Oscar Brown DO Attending Provider, Emergency Provide r Active Team Status: Active Member Role Status Dates Dr. Rios Downey DO Primary Care Provider Active Dr. Cesar Medina DO Emergency Provider Active Dr. Patricia Alcantara MD Admit Provider, Attending Prov ider Active Team Status: Active Member Role Status Dates Dr. Rios Downey DO Primary Care Provider Active Dr. Cesar Adam , DO Emergency Provider Active Dr. Patricia Alcantara MD Admit Provider, Other Provider Active Dr. Aleksander Hilliard , DO Attending Provider, Other Provider Active Dr. Woody Brunson , DO Other Provider Active Team Status: Active Member Role Status Dates Dr. Rios Downey , DO Primary Care Provider Active Dr. Cesar Medina , DO Emergency Provider Active Dr. Patricia Alcantara MD Admit Provider, Other Provider Active Dr. Woody Brunson , DO Other Provider Active Dr. Eladio Lucas MD Attending Provider, Other Provider Active Dr. Aleksander Hilliard , DO Other Provider Active Team Status: Active Member Role Status Dates Dr. Rios Downey , DO Primary Care Provider Active Dr. Cesar Medina , DO Emergency Provider Active Dr. Patricia Alcantara MD Admit Provider, Other Provider Active Dr. Woody Brunson , DO Other Provider Active Dr. Eladio Lucas MD Attending Provider, Other Provider Active Dr. Aleksander Hilliard , DO Other Provider Active Dr. Yaakov Love MD Other Provider Active Dr. Josh Clien , DO Other Provider Active Dr. Michelle Peters MD Other Provider Active Dr. Otto Jerry MD Other Provider Active Dr. Tal Ashraf MD Other Provider Active Gosia Saenz IP/MOSAIC TECHNICIAN, IP/MOSAIC TECHNICIAN-C Other Provider Active Team Status: Active Member Role Status Dates Dr. Rios Downey , DO Primary Care Provider Active Dr. Cesar Medina , DO Emergency Provider Active Dr. Patricia Alcantara MD Admit Provider, Other Provider Active Dr. Woody Brunson , DO Other Provider Active Dr. Eladio Lucas MD Other Provider Active Dr. Aleksander Hilliard , DO Other Provider Active Dr. Yaakov Love MD Attending Provider, Other Provid er Active Dr. Josh Cline , DO Other Provider Active Dr. Michelle Peters MD Other Provider Active Dr. Otto Jerry MD Other Provider Active Dr. Tal Ashraf MD Other Provider Active Gosia Saenz IP/MOSAIC TECHNICIAN, IP/MOSAIC TECHNICIAN-C Other Provider Active Team Status: Inactive Member Role Status Dates Dr. Rios Downey , DO Primary Care Provider Active Dr. Cesar Medina , DO Emergency Provider Active Dr. Patricia Alcantara MD Admit Provider, Other Provider Active Dr. Woody Brunson , DO Other Provider Active Dr. Eladio Lucas MD Attending Provider Active Dr. Aleksander Hilliard , DO Other Provider Active Dr. Yaakov Love MD Other Provider Active Dr. Josh Cline , DO Other Provider Active Dr. Michelle Peters MD Other Provider Active Dr. Otto Jerry MD Other Provider Active Dr. Tal Ashraf MD Other Provider Active Gosia Saenz IP/MOSAIC TECHNICIAN, IP/MOSAIC TECHNICIAN-C Other Provider Active Team Status: Inactive Member Role Status Dates Dr. Rios Downey , DO Primary Care Provider, Referrin g Provider Active Gosia Saenz IP/MOSAIC TECHNICIAN, IP/MOSAIC TECHNICIAN-C Attending Provider Active Team Status: Active Member Role Status Dates Dr. Rios Downey , DO Primary Care Provider Active Dr. Cesar Medina , DO Emergency Provider Active Dr. Patricia Alcantara MD Admit Provider, Other Provider Active Dr. Woody Brunson , DO Other Provider Active Dr. Eladio Lucas MD Referring Provider, Other Provider Active Dr. Aleksander Hilliard , DO Other Provider Active Dr. Yaakov Love MD Attending Provider, Other Provid er Active Dr. Josh Cline , DO Other Provider Active Dr. Michelle Peters MD Other Provider Active Dr. Otto Jerry MD Other Provider Active Dr. Tal Ashraf MD Other Provider Active Gosia Saenz NP, IP/MOSAIC TECHNICIAN-C Other Provider Active Team Status: Inactive Member Role Status Dates Dr. Rios Downey , DO Primary Care Provider Active Dr. Angélica Palomo , DO Emergency Provider Active Team Status: Inactive Member Role Status Dates Dr. Rios Downey , DO Primary Care Provider Active Dr. Cesar Medina DO Emergency Provider Active Team Status: Inactive Member Role Status Dates Dr. Rios Downey , DO Primary Care Provider Active Dr. Cesar Medina , DO Attending Provider, Emergency Provider Active Team Status: Inactive Member Role Status Dates Dr. Rios Downey , DO Primary Care Provider Active Dr. Angélica Palomo , DO Attending Provider, Emergency P rojonider Active Team Status: Inactive Member Role Status Dates Dr. Rios Downey , DO Primary Care Provider, Referrin g Provider Active Dang Dyer PA, PA Attending Provider Active Team Status: Inactive Member Role Status Dates Dr. Rios Downey , DO Primary Care Prov ider, Attending Provider, Referring Provider Active Dr. Toñito Espino , DO Other Provider Active Team Status: Active Member Role Status Dates Dr. Rios Downey , DO Primary Care Provider Active Team Status: Inactive Member Role Status Dates Dr. Rios Downey , DO Primary Care Provider Active Start: October 31, 2024 End: October 31, 2024 Dr. Pepe Au MD Attending Provider Active Start: October 31, 2024 End: October 31, 2024 Dr. Pepe Au MD Referring Provider Active Start: October 31, 2024 End: October 31, 2024 Team Status: Inactive Member Role Status Dates Dr. Rios Downey DO Primary Care Provider Active Start: December 04, 2024 End: December 04, 2024 Dr. Pepe Au MD Attending Provider Active Start: December 04, 2024 End: December 04, 2024 Dr. Pepe Au MD Referring Provider Active Start: December 04, 2024 End: December 04, 2024 Team Status: Inactive Member Role Status Dates Dr. Rios Downey DO Primary Care Provider Active Start: January 01, 2025 End: January 01, 2025 Dr. Pepe Au MD Attending Provider Active Start: January 01, 2025 End: January 01, 2025 Dr. Pepe Au MD Referring Provider Active Start: January 01, 2025 End: January 01, 2025 Team Status: Inactive Member Role Status Dates Dr. Rios Downey DO Primary Care Provider Active Start: January 29, 2025 End: January 29, 2025 Dr. Pepe Au MD Attending Provider Active Start: January 29, 2025 End: January 29, 2025 Dr. Pepe Au MD Referring Provider Active Start: January 29, 2025 End: January 29, 2025 Team Status: Inactive Member Role Status Dates Dr. Rios Downey DO Primary Care Provider Active Start: February 26, 2025 End: February 26, 2025 Dr. Pepe Au MD Attending Provider Active Start: February 26, 2025 End: February 26, 2025 Dr. Pepe Au MD Referring Provider Active Start: February 26, 2025 End: February 26, 2025 Team Status: Inactive Member Role Status Dates Dr. Rios Downey DO Primary Care Provider Active Start: March 14, 2025 End: March 14, 2025 Dr. Rios Downey DO Referring Provider Active Start: March 14, 2025 End: March 14, 2025 Gosia Saenz IP/MOSAIC TECHNICIAN, IP/MOSAIC TECHNICIAN-C Attending Provider Active Start: March 14, 2025 End: March 14, 2025 Team Status: Inactive Member Role Status Dates Dr. Rios Downey DO Primary Care Provider Active Start: March 28, 2025 End: March 28, 2025 Dr. Pepe Au MD Attending Provider Active Start: March 28, 2025 End: March 28, 2025 Dr. Pepe Au MD Referring Provider Active Start: March 28, 2025 End: March 28, 2025 Team Status: Inactive Member Role Status Dates Dr. Rios Downey DO Primary Care Provider Active Start: April 15, 2025 End: April 15, 2025 Dr. Pepe Au MD Attending Provider Active Start: April 15, 2025 End: April 15, 2025 Dr. Pepe Au MD Referring Provider Active Start: April 15, 2025 End: April 15, 2025 Team Status: Inactive Member Role Status Dates Dr. Rios Downey DO Primary Care Provider Active Start: April 25, 2025 End: April 25, 2025 Dr. Pepe Au MD Attending Provider Active Start: April 25, 2025 End: April 25, 2025 Dr. Pepe Au MD Referring Provider Active Start: April 25, 2025 End: April 25, 2025 (unrecognized sect ion and content) No Status Records FoundNo Status Records Found INFORMATION SOURCE (unrecogn ized section and content) DATE CREATED AUTHOR 05/29/2023 [facility] ([place]) DATE CREATED AUTHOR AUTHOR'S MARYIZ ATION 05/20/2025 [facility] FOR RECORDS PERTAINING TO PATIENTS WHO ARE [...] BE BASED ON THE PRIMARY CLINICAL RECORDS. [employer] [facility]. provides no warranty or guarantee of the accuracy or completeness of information in this document.
[2025-05-22 23:10] LABS: Xtra Tube EP Lab EXTRA TUBE
== END 2025-05-22 23:59 | disposition home or self-care (01) ==
LOC: MEDOUTP 14:57
PROVIDERS: Internal Medicine; Referring Provider Internal Medicine Nephrology; Visit Provider Internal Medicine Nephrology
DX: E11.22 Type 2 diabetes mellitus with diabetic chronic kidney disease (principal); N18.5 Chronic kidney disease, stage 5; D63.1 Anemia in chronic kidney disease; N25.81 Secondary hyperparathyroidism of renal origin
CPT/HCPCS: 36415; 80053; 80061; 80069; 82728; 83036; 83540; 83550; 84443; 85025

== ENCOUNTER 2025-05-31 21:57 | Emergency (ER) | payer MEDICARE, OTHER, SELFPAY ==
[2025-05-31 22:00] VITALS: BP 151/75; PULSE 51; RESP 16; TEMP 36.1; O2SAT 99
--- NOTE | 2025-05-31 22:12 | EKG12_ITS ---
Test Reason : DYSRHYTHMIA Blood Pressure : */* mmHG Vent. Rate : 60 BPM Atrial Rate : * BPM P-R Int : * ms QRS Dur : 158 ms QT Int : 484 ms P-R-T Axes : * -3 146 degrees QTcB Int : 484 ms Atrial fibrillation Left bundle branch block Abnormal ECG Confirmed by DON BAIG, JEAN CLAUDE ([id number]), technical editor BRENDA CANTRELL ([id number]) on 06/03/2025 10:34:52 AM Referred By: Confirmed By: JEAN CLAUDE OCHOA MD
--- NOTE | 2025-05-31 22:12 | EKG12_ITS ---
Test Reason : DYSRHYTHMIA Blood Pressure : */* mmHG Vent. Rate : 60 BPM Atrial Rate : * BPM P-R Int : * ms QRS Dur : 158 ms QT Int : 484 ms P-R-T Axes : * -3 146 degrees QTcB Int : 484 ms Atrial fibrillation Left bundle branch block Abnormal ECG Confirmed by DON BAIG, JEAN CLAUDE ([id number]), research editor BRENDA CANTRELL ([id number]) on 06/03/2025 10:34:52 AM Referred By: Confirmed By: JEAN CLAUDE OCHOA MD
--- NOTE | 2025-05-31 22:18 | EX.ED.DYSGE1 ---
HPI History of Present Illness Chief Complaint: Confusion Detail of Chief Complaint: Not responsive for a minute or 2 per daughter Informant: family Limited: other (Amnesia) Onset/Context/Timing Onset: Today and Hours (Approximately 1 hour prior to presentation) Context: Sudden Onset Timing: Intermittent (Several minutes) Quality: Not responsive to verbal or tactile stimulus, and was breathing funny Location: Backseat of car going to [employer] Current Severity: Gone Maximum Severity: Severe Worsened by: Unknown Relieved by: Not applicable Associated Symptoms Associated Symptoms: Breathing funny Narrative Narrative: Patient is a 85-year-old male with history of CHF, chronic hypoxemic respiratory failure on 3 L of oxygen by nasal cannula at rest and 5 L with activity. He had 1 episode of a seizure which was attributed to an antibiotic. He is on anticoagulant. He does have history of atrial fibrillation, coronary artery disease, hyperlipidemia, essential hypertension, stage III chronic kidney disease and obstructive sleep apnea. He does not know what happened. He presently has no complaints. When in the room he was cyanotic. He was off his oxygen to take his shirt off. He presently denies chest pain, he denies increased shortness of breath from baseline and denies pain with breathing. He denies headache, visual, ocular auditory symptoms. He denies abdominal pain and there is no nausea or vomiting. According to daughter he has not been in the hospital for some time. There is office visit March 14, 2025 authored by Gosia Esquivel for pulmonary medicine. Assessment was for obstructive sleep apnea. He is on BiPAP 1712. He had respiratory failure complications due to chronic hypoxia. His last admission to the hospital was September 16, 2023. He was admitted at that time for exacerbation CHF acute on chronic, kidney disease stage IV with a GFR of 15-29, chronic respiratory failure, cardiac valve disease nonrheumatic. There is also a concern for underlying dementia. Daughter did mention that he does have dementia. Prior similar symptoms: No Recent Illness/Hospitalization: No PFSH PFS Medical History PAF (paroxysmal atrial fibrillation) AUTUMN treated with BiPAP Former smoker Chronic respiratory failure with hypoxia Atherosclerosis of coronary artery of [place] heart without angina pectoris Essential (primary) hypertension Chronic combined systolic and diastolic CHF (congestive heart failure) Lymphedema COPD (chronic obstructive pulmonary disease) Ocular migraine TIA (transient ischemic attack) Anemia Type 2 diabetes mellitus without complications Obstructive sleep apnea Atherosclerosis of coronary artery bypass graft without angina pectoris Non-rheumatic aortic stenosis Left bundle branch block Morbid obesity with BMI of 45.0-49.9, adult Chronic renal failure, stage 3 (moderate) Hyperlipemia Venous insufficiency of both lower extremities Home Medications ?Medication ?Instructions ?Recorded ?Last Taken ?Type aspirin 81 mg tablet,delayed 81 mg PO DAILY HEART HEALTH 07/11/16 07/03/23 History release multivitamin 1 ea PO DAILY HEALTH MAINTENANCE 07/11/16 08/18/23 History insulin regular human 100 unit/mL 10 unit subcut BID DIABETES 07/24/16 07/02/23 History injection solution cholecalciferol (vitamin D3) 25 25 mcg PO DAILY SUPPLEMENT 10/26/16 08/18/23 History mcg (1,000 unit) tablet sertraline 25 mg tablet 25 mg PO DAILY DEPRESSION 01/10/18 08/18/23 History famotidine 20 mg tablet 20 mg PO DAILY GERD 11/13/19 08/18/23 History olanzapine 2.5 mg tablet 2.5 mg PO QHS DEPRESSION 11/13/19 08/17/23 History allopurinol 300 mg tablet 300 mg PO DAILY GOUT 12/07/21 08/18/23 History apixaban 2.5 mg tablet (Eliquis) 2.5 mg PO BID BLOOD THINNER 10/07/22 07/03/23 History calcitriol 0.25 mcg capsule 0.5 mcg PO MOWEFR SUPPLEMENT 10/07/22 08/17/23 History potassium chloride 20 mEq 20 meq PO DAILY potassium #1 TAB 07/03/23 Unknown Rx tablet,extended release psyllium husk 3 gram oral powder 1 packet PO BID constipation #0 ea 07/03/23 07/03/23 Rx packet (Daily Fiber (psyllium-aspartame)) menthol 0.44 %-zinc oxide 20.6 % 1 applic topical BID 08/18/23 08/18/23 History topical ointment (Calmoseptine) nystatin 100,000 unit/gram topical 1 applic topical BID 08/18/23 08/18/23 History powder (Nystop) nitroglycerin 0.4 mg sublingual 0.4 mg sublingual Q5-15M PRN chest 03/23/24 Unknown Rx tablet (Nitrostat) pain #25 tabs isosorbide mononitrate 30 mg 30 mg PO DAILY HEART #90 tabs 03/28/24 Unknown Rx tablet,extended release 24 hr amlodipine 2.5 mg tablet 2.5 mg PO DAILY #90 tabs 01/25/25 Unknown Rx furosemide 40 mg tablet 40 mg PO QDAY #90 tabs 01/25/25 Unknown Rx insulin NPH isoph U-100 human 100 10 unit subcut BID DIABETES 05/31/25 Unknown History unit/mL subcutaneous suspension levetiracetam 500 mg tablet 500 mg PO BID 05/31/25 Unknown History Allergy/AdvReac Type Severity Reaction Status Date / Time Penicillins (PCN) Allergy Swelling Verified 03/14/25 15:01 Family History Father Myocardial infarction Mother CVA (cerebral vascular accident) Brother CAD (coronary artery disease) Diabetes Surgical History Hx of cholecystectomy (01/13/17) H/O aortic valve replacement (02/24/16) H/O coronary artery bypass surgery (02/24/16) Social History household members: family and other details: Granddaughter. 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 Smoking Status: Former smoker how long ago did patient quit smokin + years alcohol intake: never substance use type: does not use caffeine: Yes Type: carbonated beverages and tea ROS ROS ED Constitutional Constitutional ED: Denies chills, fever(s), subjective or sweats Eyes Eyes: Denies blurry vision or change in vision ENT ENT ED: Denies ear pain, rhinorrhea or sore throat Cardiovascular Cardiovascular: Denies chest pain or palpitations Respiratory/Chest Respiratory/Chest: Denies cough, dyspnea or dyspnea on exertion Gastrointestinal Gastrointestinal: Denies abdominal pain, constipation, diarrhea or vomiting Genitourinary Genitourinary ED: Denies dysuria, hematuria or urinary frequency Musculoskeletal Musculoskeletal: Denies arthralgias or myalgias Integumentary Denies rash Neurologic Neurologic: Denies headache(s) or weakness Hematologic/Lymphatic Hematologic/Lymphatic: Reports systems reviewed and no addt'l complaints, except as documented EXAM Physical Exam Const Vital Signs: 05/31/25 22:00 05/31/25 22:20 05/31/25 22:22 Temperature 97.0 F L 97.8 F Temperature Source Temporal Oral Pulse Rate 51 L 55 L Respiratory Rate 16 20 H Blood Pressure 151/75 H 167/98 H Blood Pressure Mean 100 121 Pulse Ox 99 98 Oxygen Delivery Method Nasal Cannula Nasal Cannula Nasal Cannula Oxygen Flow Rate (L/min) 5 5 5 05/31/25 23:40 06/01/25 00:09 Temperature 98 F 97.9 F Temperature Source Oral Temporal Pulse Rate 53 L 57 L Respiratory Rate 11 L 16 Blood Pressure 113/64 140/75 H Blood Pressure Mean 80 96 Pulse Ox 100 100 Oxygen Delivery Method Oxygen Flow Rate (L/min) Positive well nourished and well developed Constitutional Narrative: Patient is cyanotic. He is tachypneic and breathing much faster than 16 times a minute. He is presently off his oxygen. General Appearance ED: well developed, cyanotic and pallor; Negative for diaphoretic or NAD HEENT Reports dry mucous membranes HEENT Narrative: Head is atraumatic and normocephalic. Ears are normal. Nose patent. Posterior pharynx unremarkable. Mouth ED: Yes dry mucous membranes Mouth: dry mucous membranes Eyes PERRL and EOMs intact bilaterally General Eye ED: Negative for pale conjunctiva or scleral icterus Neck no lymphadenopathy, supple and no JVD Chest Wall inspection of chest normal and palpation of chest normal Resp No normal respiratory effort and No clear to auscultation bilaterally Resp Narrative: Patient is tachypneic. There is minimal use of accessory muscles. Auscultation: rales left lower Cardio regular rate, regular rhythm and no murmurs GI normal to inspection, nondistended, normoactive bowel sounds, non-tender, non-distended and no masses; Negative for hepatosplenomegaly Palpation: soft Back/Spine no CVA tenderness Extremity Negative for normal to inspection Extremity Narrative: Venous stasis dermatitis with eczema lower extremity exam Neuro oriented x3, CN's II-XII intact bilaterally and no sensory deficits noted Neuro Narrative: NIH is 0. Sensorium / Orientation: alert Motor Exam: strength 5/5 throughout Psych mental status grossly normal Skin No no rashes or lesions noted and No no wounds General Skin Exam: pallor; Negative for jaundice MDM MDM MDM Narrative Medical decision making narrative: This may be due to a metabolic or infectious etiology. This could represent a dysrhythmia. This could be related to his chronic respiratory failure. This could represent atypical neurologic event as well. Patient was made NPO. CT of the head was obtained without contrast. Appropriate blood work was ordered. An ABG was ordered to evaluate for hypercapnia. He is saturating 91% on 5 L. History & Record Review Additional record(s) reviewed:: Prior inpatient record, Prior outpatient record, Prior ED visit and Prior labs Lab Data Attestation: I reviewed the patient's lab results. Lab results narrative: CBC reveals macrocytic anemia. Lactate is normal. Comprehensive metabolic panel is remarked for BUN/creatinine of 54 and 2.54. This is patient's baseline. Glucose is slightly elevated 116. BUN/creatinine ratio is elevated 41-1. Transaminases are normal. Labs: Laboratory Results - last 24 hr 05/31/25 05/31/25 11:00 22:13 WBC 6.0 RBC 3.67 L Hgb 11.9 L Hct 37.3 L MCV 101.6 H MCH 32.4 H MCHC 31.9 L RDW Std Deviation 55.1 H RDW Coeff of Yeny 15.0 H Plt Count 110 L MPV 11.9 Immature Gran % (Auto) 0.500 Neut % (Auto) 58.3 Lymph % (Auto) 30.0 [place] % (Auto) 8.5 Eos % (Auto) 2.2 Baso % (Auto) 0.5 Absolute Neuts (auto) 3.5 Absolute Lymphs (auto) 1.81 Nucleated RBC % 0 Sodium 142 Potassium 4.9 Chloride 108 Carbon Dioxide 21.8 Anion Gap 12 BUN 54 H Creatinine 2.54 H Estim Creat Clear Calc 24.99 L Est GFR (MDRD) Non-Af 24 L BUN/Creatinine Ratio 21.1 H Glucose 116 H Lactic Acid 1.7 Calcium 9.6 Total Bilirubin 0.76 AST 27 ALT 12 Alkaline Phosphatase 208 H Total Protein 7.6 Albumin 4.0 Globulin 3.6 Albumin/Globulin Ratio 1.1 Urine Color Yellow Urine Clarity Clear Urine pH 5.0 Ur Specific [place] 1.015 Urine Protein 100 H Urine Glucose (UA) Normal Urine Ketones Negative Urine Occult Blood 10 H Urine Nitrite Negative Urine Bilirubin Negative Urine Urobilinogen Normal Ur Leukocyte Esterase Negative Urine RBC 0-5 SEEN Urine WBC 0-5 SEEN Ur Squamous Epith Cells 0 SEEN Urine Bacteria RARE Hyaline Casts 0-5 SEEN Urine Mucus RARE ABG Data Attestation: I personally reviewed and interpreted this ABG as follows: Interpretation: ABG reveals increased AA gradient. pH is 7.41, bicarb 24, total CO2 25, base excess -1, saturation 94% on 5 L by nasal cannula. pCO2 is normal at 38.1 and PO2 is 71. ABG results: ABG 05/31/25 23:22 Specimen Type ART Sample Site R Brach pH 7.41 Bicarbonate Actual 24.0 Total CO2 25 Base Excess -1 O2 Saturation 94 L O2 % 5.0 ABG pCO2 38.1 ABG pO2 71 L Pavel Test Positive O2 Delivery Device Cannula Vent Mode Not entered Radiography Chest X-Ray - ED: 2 View and Read by ED Physician (Return reviewed interpreted by me at 2250. There is cardiomegaly. He has sternotomy wires noted. She has had a valve replacement. There is no infiltrate, effusion, pneumothorax or evidence of CHF. His film was rotated which makes difficult to assess the hilum for any obvious abnormality. [place]) Diagnostic Testing: Clinical Impression(s) from Imaging Studies Chest X-Ray 05/31/25 22:37 IMPRESSION: CARDIOMEGALY. NO ACUTE FINDINGS. Reading Location: [facility] EKG Initial EKG: Attestation: I personally reviewed and interpreted this EKG as follows: Interpretation: Atrial Fibrillation (Atrial fibrillation with a rate of 60. [place] interval not applicable. QRS duration 58 ms. There is evidence of left bundle branch block. QT duration is 484 ms. [place] is normal) Treatment and Re-Evaluation :: Patient and family were informed of results. Patient was discharged home. Patient's blood pressure did improve. Comments:: Patient and daughter state that he does not drink alcohol. He has not had a workup for folate or vitamin B-12 deficiency, pernicious anemia workup. Discharge Plan Triage Chief Complaint: Confusion ED Provider: Duc Vicente Dx/Rx/DC Orders Clinical Impression: Change in level of consciousness, Left bundle branch block, Essential (primary) hypertension, Hyperlipemia, Atrial fibrillation, CKD (chronic kidney disease) stage 4, GFR 15-29 ml/min, Cardiomegaly, Bradycardia, Chronic hypoxic respiratory failure Instructions: ED ALOC Prescriptions: No Action famotidine 20 mg tablet 20 mg PO DAILY olanzapine 2.5 mg tablet 2.5 mg PO QHS Eliquis 2.5 mg tablet 2.5 mg PO BID nitroglycerin [Nitrostat] 0.4 mg tablet, sublingual 0.4 mg sublingual Q5-15M PRN (Reason: chest pain) Qty: 25 3RF Rx Instructions: do not exceed 3 doses per episode aspirin 81 MG tablet,delayed release (DR/EC) 81 mg PO DAILY Patient Comments: multivitamin 1 EACH tablet 1 ea PO DAILY insulin regular human 100 UNIT/ML solution 10 unit SC BID Patient Comments: afternoon and night cholecalciferol (vitamin D3) 1,000 UNIT tablet 25 mcg PO DAILY sertraline 25 MG tablet 25 mg PO DAILY calcitriol 0.25 mcg capsule 0.5 mcg PO MOWEFR allopurinol 300 mg tablet 300 mg PO DAILY Daily Fiber (psyllium-aspart) 3 gram Powder In Packet 1 packet PO BID Qty: 0 0RF potassium chloride 20 mEq tablet extended release 20 meq PO DAILY Qty: 1 0RF menthol-zinc oxide [Calmoseptine] 0.44-20.6 % ointment 1 applic topical BID nystatin [Nystop] 100,000 unit/gram powder 1 applic topical BID levetiracetam 500 mg tablet 500 mg PO BID insulin NPH isoph U-100 human 100 unit/mL suspension 10 unit SC BID isosorbide mononitrate 30 mg tablet extended release 24 hr 30 mg PO DAILY Qty: 90 4RF amlodipine 2.5 mg tablet 2.5 mg PO DAILY Qty: 90 3RF furosemide 40 mg tablet 40 mg PO QDAY Qty: 90 3RF Primary Care Provider: Rios Downey Referrals: Rios Downey DO [Primary Care Provider] - 3-5 Days Print Language: [place] Disposition Disposition: Home, Self Care
[2025-05-31 22:20] VITALS: BP 167/98; PULSE 55; RESP 20; TEMP 36.6; O2SAT 98; BMI 41.0
[2025-05-31 22:29] LABS: Hematocrit 37.3 % (40-54); Hemoglobin 11.9 g/dL (13.0-16.5); Immature Granulocytes Count 0.030 X10^3/uL (0.0-0.0); Mean Corp Hgb Conc 31.9 g/dL (32-36); Mean Corpuscular Volume 101.6 fL (80-94); Mean Platelet Vol. 11.9 fl (6.2-12.0); NRBC Flagged by Analyzer 0 % (0-5); Platelet Count 110 K/mm3 (150-450); RBC Distribution Width CV 15.0 % (11.6-14.6); RBC Distribution Width SD 55.1 fl (35.1-43.9); Red Blood Count 3.67 M/mm3 (4.6-6.2); White Blood Count 6.0 K/mm3 (4.4-11.0)
--- NOTE | 2025-05-31 22:37 | RAD_ITS ---
PROCEDURE: CHEST PA AND LATERAL 05/31/2025 REASON FOR EXAM: RALES LEFT LOWER LOBE TECHNIQUE: CHEST PA AND LATERAL COMPARISON: Chest radiograph 02/19/2024. FINDINGS: Hardware: Prior median sternotomy and aortic valve replacement. Heart: Stable moderate cardiomegaly and pulmonary vascular congestion. Mediastinum: There are atherosclerotic calcifications of the thoracic aorta. Lungs: Bibasilar atelectasis/scarring. No focal consolidation, pleural effusion or pneumothorax. Bones: Degenerative changes are identified within the thoracic spine. Arthrosis of the bilateral glenohumeral joints. RAD/Chest PA and Lateral IMPRESSION: CARDIOMEGALY. NO ACUTE FINDINGS. Reading Location: [id number]
--- NOTE | 2025-05-31 22:37 | RAD_ITS ---
PROCEDURE: CHEST PA AND LATERAL 05/31/2025 REASON FOR EXAM: RALES LEFT LOWER LOBE TECHNIQUE: CHEST PA AND LATERAL COMPARISON: Chest radiograph 02/19/2024. FINDINGS: Hardware: Prior median sternotomy and aortic valve replacement. Heart: Stable moderate cardiomegaly and pulmonary vascular congestion. Mediastinum: There are atherosclerotic calcifications of the thoracic aorta. Lungs: Bibasilar atelectasis/scarring. No focal consolidation, pleural effusion or pneumothorax. Bones: Degenerative changes are identified within the thoracic spine. Arthrosis of the bilateral glenohumeral joints. RAD/Chest PA and Lateral IMPRESSION: CARDIOMEGALY. NO ACUTE FINDINGS. Reading Location: [id number]
--- OUTSIDE RECORDS SUMMARY | 2025-05-31 22:55 | XMS RPT_ITS | CCD ---
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 98-108 [facility] Eosinophil percentageOrdered By: Pepe Au on 04-15-2025 Eosinophils/100 WBC (Bld) 2.7 % 0-5 [facility] Erythrocyte distribution wid th ratioOrdered By: Pepe Au on 04-15-2025 Erythrocyte distribution width (RBC) [Ratio] 15.1 % High 11.6-14.6 [facility] Erythrocyte distribution wid th standard deviationOrdered By: Pepe Au on 04-15-2025 Erythrocyte distribution width (RBC) [Ratio] 56.5 fl High 35.1-43.9 [facility] Glomerular filtration rate ( GFR) estimation/1.73 sq m using serum, plasma, or whole bOrdered By: Pepe Au on 04-15-2025 GFR/1.73 sq M.predicted among non-blacks MDRD (S/P/Bld) [Vol rate/Area] 23 mL/min/{1.73_m2} Low >60 [facility] Comment on above: mL/min/1.73m2 CKD-EP I Creatinine Equation (2020) Hematocrit Auto (Bld) [Volum e fraction]Ordered By: Pepe Au on 04-15-2025 Hematocrit (Bld) [Volume fraction] 34.5 % Low 40-54 [facility] Hemoglobin measurementOrdere d By: Pepe Au on 04-15-2025 Hemoglobin (Bld) [Mass/Vol] 10.9 g/dL Low 13.0-16.5 [facility] Immature granulocytes/100 WB C Auto (Bld)Ordered By: Pepe Au on 04-15-2025 Immature granulocytes/100 WBC (Bld) 0.400 % 0.0-0.9 [facility] Comment on above: IG% - Immature Granu locytes (promyelocytes, myelocytes and metamyelocytes) > 1% indicates that a LEFT SHIFT is Present. Iron measurement (mass/mass) Ordered By: Pepe Au on 04-15-2025 Iron (Unsp spec) [Mass/Mass] 70 ug/dL 65-175 [facility] MCV (mean corpuscular volume ) determinationOrdered By: Pepe Au on 04-15-2025 MCV (RBC) [Entitic vol] 101.2 fL High 80-94 [facility] Mean corpuscular hemoglobin (MCH) determinationOrdered By: Pepe Au on 04-15-2025 MCH (RBC) [Entitic mass] 32.0 pg 27.0-32.0 [facility] Mean corpuscular hemoglobin concentration (MCHC) determinationOrdered By: Pepe Au on 04-15-2025 MCHC (RBC) [Mass/Vol] 31.6 g/dL Low 32-36 [facility] Mean platelet volume determi nationOrdered By: Pepe Au on 04-15-2025 Platelet mean volume (Bld) [Entitic vol] 11.7 fL 6.2-12.0 [facility] Monocyte percentageOrdered B y: Pepe Au on 04-15-2025 Monocytes/100 WBC (Bld) 6.6 % 0-10 [facility] Neutrophil percentageOrdered By: Pepe Au on 04-15-2025 Neutrophils/100 WBC (Bld) 70.3 % High 47-70 [facility] No Panel InformationOrdered By: Pepe Au on 04-15-2025 Unsaturated Iron Binding Capacity 163 ug/dL Low 228-428 [facility] Nucleated red blood cell per centageOrdered By: Pepe Au on 04-15-2025 Nucleated RBC/100 WBC (Bld) [Ratio] 0 % 0-5 [facility] Platelet countOrdered By: Chaim Au on 04-15-2025 Platelets (Bld) [#/Vol] 112 10*3/uL Low 150-450 [facility] Potassium measurement (mass/ volume)Ordered By: Pepe Au on 04-15-2025 Potassium (Unsp spec) [Mass/Vol] 4.8 mmol/L 3.3-5.1 [facility] RBC Auto (Bld) [#/Vol]Ordere d By: Pepe Au on 04-15-2025 RBC (Bld) [#/Vol] 3.41 10*6/uL Low 4.6-6.2 [facility] Random urine creatinine aubree urement (mass/volume)Ordered By: Pepe Au on 04-15-2025 Creatinine Unsp time (U) [Mass/Vol] 89.70 mg/dL 39.00-259.00 [facility] Serum creatinine measurement (mass/volume)Ordered By: Pepe Au on 04-15-2025 Creatinine [Mass/Vol] 2.63 mg/dL High 0.70-1.20 [facility] Serum glucose measurement (m ass/volume)Ordered By: Pepe Au on 04-15-2025 Glucose [Mass/Vol] 139 mg/dL High 70-99 [facility] Serum or plasma albumin aubree urement (mass/volume)Ordered By: Pepe Au on 04-15-2025 Albumin [Mass/Vol] 3.9 g/dL 3.4-4.8 [facility] Serum or plasma calcium aubree urement (mass/volume)Ordered By: Pepe Au on 04-15-2025 Calcium [Mass/Vol] 9.3 mg/dL 7.6-11.0 [facility] Serum or plasma ferritin laurie surement (mass/volume)Ordered By: Pepe Au on 04-15-2025 Ferritin [Mass/Vol] 186 ng/mL 37-417 [facility] Serum or plasma iron saturat ion measurement (mass fraction)Ordered By: Pepe Au on 04-15-2025 Iron saturation [Mass fraction] 30.0 % 9-55 [facility] Serum or plasma urea nitroge n measurement (mass/volume)Ordered By: Pepe Au on 04-15-2025 Urea nitrogen [Mass/Vol] 54 mg/dL High 4-19 [facility] Serum or plasma uric acid me asurement (mass/volume)Ordered By: Pepe Au on 04-15-2025 Urate [Mass/Vol] 5.6 mg/dL 3.5-7.2 [facility] Comment on above: The drugs N-Acetylcy steine and Metamizole may falsely depress this assay. Sodium levelOrdered By: Lety Au on 04-15-2025 Sodium [Moles/Vol] 141 mmol/L 133-145 [facility] Urine protein measurement (m ass/volume)Ordered By: Pepe Au on 04-15-2025 Protein (U) [Mass/Vol] 63.0 mg/dL High 0.0-12.0 [facility] Urine protein/creatinine mas s ratioOrdered By: Pepe Au on 04-15-2025 Protein/Creatinine (U) [Mass ratio] 702 mg/g CRE High 0-200 [facility] White blood cell (WBC) count Ordered By: Pepe Au on 04-15-2025 WBC (Bld) [#/Vol] 7.1 10*3/uL 4.4-11.0 [facility] Absolute lymphocyte countOrd ered By: Pepe Au on 03-28-2025 Lymphocytes Auto (Unsp spec) [#/Vol] 1.95 10*3/uL 0.83-4.51 [facility] Absolute neutrophil countOrd ered By: Pepe Au on 03-28-2025 Neutrophils (Bld) [#/Vol] 5.5 10*3/uL 2.0-7.7 [facility] Anion gap in Serum or Plasma Ordered By: Peep Au on 03-28-2025 Anion gap [Moles/Vol] 13 mmol/L 5-15 [facility] Automated lymphocyte count a s percentage of total leukocytesOrdered By: Pepe Au on 03-28-2025 Lymphocytes/100 WBC Auto (Unsp spec) 23.7 % 19-41 [facility] BUN/creatinine ratioOrdered By: Pepe Au on 03-28-2025 Urea nitrogen/Creatinine [Mass ratio] 20.7 mg/mg High 10-20 [facility] Basophil percentageOrdered B y: Pepe Au on 03-28-2025 Basophils/100 WBC (Bld) 0.5 % 0-1 [facility] Carbon dioxide, total [Moles /volume] in Central venous bloodOrdered By: Pepe Au on 03-28-2025 CO2 [Moles/Vol] 21.1 mmol/L 21.0-32.0 [facility] Chloride assayOrdered By: Chaim Au on 03-28-2025 Chloride [Moles/Vol] 108 mmol/L 98-108 [facility] Eosinophil percentageOrdered By: Pepe Au on 03-28-2025 Eosinophils/100 WBC (Bld) 1.9 % 0-5 [facility] Erythrocyte distribution wid th ratioOrdered By: Pepe Au on 03-28-2025 Erythrocyte distribution width (RBC) [Ratio] 14.6 % 11.6-14.6 [facility] Erythrocyte distribution wid th standard deviationOrdered By: Pepe Au on 03-28-2025 Erythrocyte distribution width (RBC) [Ratio] 53.0 fl High 35.1-43.9 [facility] Glomerular filtration rate ( GFR) estimation/1.73 sq m using serum, plasma, or whole bOrdered By: Pepe Au on 03-28-2025 GFR/1.73 sq M.predicted among non-blacks MDRD (S/P/Bld) [Vol rate/Area] 24 mL/min/{1.73_m2} Low >60 [facility] Comment on above: mL/min/1.73m2 CKD-EP I Creatinine Equation (2020) Hematocrit Auto (Bld) [Volum e fraction]Ordered By: Pepe Au on 03-28-2025 Hematocrit (Bld) [Volume fraction] 35.2 % Low 40-54 [facility] Hemoglobin measurementOrdere d By: Pepe Au on 03-28-2025 Hemoglobin (Bld) [Mass/Vol] 11.2 g/dL Low 13.0-16.5 [facility] Immature granulocytes/100 WB C Auto (Bld)Ordered By: Pepe Au on 03-28-2025 Immature granulocytes/100 WBC (Bld) 0.500 % 0.0-0.9 [facility] Comment on above: IG% - Immature Granu locytes (promyelocytes, myelocytes and metamyelocytes) > 1% indicates that a LEFT SHIFT is Present. Iron measurement (mass/mass) Ordered By: Pepe Au on 03-28-2025 Iron (Unsp spec) [Mass/Mass] 93 ug/dL 65-175 [facility] MCV (mean corpuscular volume ) determinationOrdered By: Pepe Au on 03-28-2025 MCV (RBC) [Entitic vol] 100.0 fL High 80-94 [facility] Mean corpuscular hemoglobin (MCH) determinationOrdered By: Pepe Au on 03-28-2025 MCH (RBC) [Entitic mass] 31.8 pg 27.0-32.0 [facility] Mean corpuscular hemoglobin concentration (MCHC) determinationOrdered By: Pepe Au on 03-28-2025 MCHC (RBC) [Mass/Vol] 31.8 g/dL Low 32-36 [facility] Mean platelet volume determi nationOrdered By: Pepe Au on 03-28-2025 Platelet mean volume (Bld) [Entitic vol] 11.5 fL 6.2-12.0 [facility] Monocyte percentageOrdered B y: Pepe Au on 03-28-2025 Monocytes/100 WBC (Bld) 6.6 % 0-10 [facility] Neutrophil percentageOrdered By: Pepe Au on 03-28-2025 Neutrophils/100 WBC (Bld) 66.8 % 47-70 [facility] No Panel InformationOrdered By: Pepe Au on 03-28-2025 Unsaturated Iron Binding Capacity 143 ug/dL Low 228-428 [facility] Nucleated red blood cell per centageOrdered By: Pepe Au on 03-28-2025 Nucleated RBC/100 WBC (Bld) [Ratio] 0 % 0-5 [facility] Platelet countOrdered By: Chaim Au on 03-28-2025 Platelets (Bld) [#/Vol] 107 10*3/uL Low 150-450 [facility] Potassium measurement (mass/ volume)Ordered By: Pepe Au on 03-28-2025 Potassium (Unsp spec) [Mass/Vol] 5.3 mmol/L High 3.3-5.1 [facility] RBC Auto (Bld) [#/Vol]Ordere d By: Pepe Au on 03-28-2025 RBC (Bld) [#/Vol] 3.52 10*6/uL Low 4.6-6.2 [facility] Serum creatinine measurement (mass/volume)Ordered By: Pepe Au on 03-28-2025 Creatinine [Mass/Vol] 2.56 mg/dL High 0.70-1.20 [facility] Serum glucose measurement (m ass/volume)Ordered By: Pepe Au on 03-28-2025 Glucose [Mass/Vol] 130 mg/dL High 70-99 [facility] Serum or plasma albumin aubere urement (mass/volume)Ordered By: Pepe Au on 03-28-2025 Albumin [Mass/Vol] 4.0 g/dL 3.4-4.8 [facility] Serum or plasma calcium aubree urement (mass/volume)Ordered By: Pepe Au on 03-28-2025 Calcium [Mass/Vol] 10.6 mg/dL 7.6-11.0 [facility] Serum or plasma ferritin laurie surement (mass/volume)Ordered By: Pepe Au on 03-28-2025 Ferritin [Mass/Vol] 191 ng/mL 37-417 [facility] Serum or plasma iron saturat ion measurement (mass fraction)Ordered By: Pepe Au on 03-28-2025 Iron saturation [Mass fraction] 39.0 % 9-55 [facility] Comment on above: Previous reported re sult: 39.0 %Edited by: GWENDOLYN on 03/28/25:1546 Serum or plasma urea nitroge n measurement (mass/volume)Ordered By: Pepe Au on 03-28-2025 Urea nitrogen [Mass/Vol] 53 mg/dL High 4-19 [facility] Sodium levelOrdered By: Lety Au on 03-28-2025 Sodium [Moles/Vol] 142 mmol/L 133-145 [facility] White blood cell (WBC) count Ordered By: Pepe Au on 03-28-2025 WBC (Bld) [#/Vol] 8.2 10*3/uL 4.4-11.0 [facility] Absolute lymphocyte countOrd ered By: Pepe Au on 02-26-2025 Lymphocytes Auto (Unsp spec) [#/Vol] 1.72 10*3/uL 0.83-4.51 [facility] Absolute neutrophil countOrd ered By: Pepe Au on 02-26-2025 Neutrophils (Bld) [#/Vol] 5.7 10*3/uL 2.0-7.7 [facility] Anion gap in Serum or Plasma Ordered By: Pepe Au on 02-26-2025 Anion gap [Moles/Vol] 16 mmol/L High 5-15 [facility] Automated lymphocyte count a s percentage of total leukocytesOrdered By: Pepe Au on 02-26-2025 Lymphocytes/100 WBC Auto (Unsp spec) 21.0 % 19-41 [facility] BUN/creatinine ratioOrdered By: Pepe Au on 02-26-2025 Urea nitrogen/Creatinine [Mass ratio] 18.1 mg/mg 10-20 [facility] Basophil percentageOrdered B y: Pepe Au on 02-26-2025 Basophils/100 WBC (Bld) 0.4 % 0-1 [facility] Calculated total iron bindin g capacityOrdered By: Pepe Au on 02-26-2025 Total Iron Binding Capacity 218 ug/dL Low 250-450 [facility] Carbon dioxide, total [Moles /volume] in Central venous bloodOrdered By: Pepe Au on 02-26-2025 CO2 [Moles/Vol] 19.8 mmol/L Low 21.0-32.0 [facility] Chloride assayOrdered By: Chaim Au on 02-26-2025 Chloride [Moles/Vol] 107 mmol/L 98-108 [facility] Eosinophil percentageOrdered By: Pepe Au on 02-26-2025 Eosinophils/100 WBC (Bld) 2.3 % 0-5 [facility] Erythrocyte distribution wid th (RBC) [Ratio]Ordered By: Pepe Au on 02-26-2025 Erythrocyte distribution width (RBC) [Entitic vol] 49.2 fL High 35.1-43.9 [facility] Erythrocyte distribution wid th ratioOrdered By: Pepe Au on 02-26-2025 Erythrocyte distribution width (RBC) [Ratio] 13.6 % 11.6-14.6 [facility] Erythrocyte distribution wid th standard deviationOrdered By: Pepe Au on 02-26-2025 Erythrocyte distribution width (RBC) [Ratio] 49.2 fl High 35.1-43.9 [facility] GFR/1.73 sq M.predicted henry g non-blacks MDRD (S/P/Bld) [Vol rate/Area]Ordered By: Pepe Au on 02-26-2025 Estimated GFR (MDRD) Non-Af Amer 25 Low >60 [facility] Comment on above: mL/min/1.73m2 CKD-EP I Creatinine Equation (2020) Glomerular filtration rate ( GFR) estimation/1.73 sq m using serum, plasma, or whole bOrdered By: Pepe Au on 02-26-2025 GFR/1.73 sq M.predicted among non-blacks MDRD (S/P/Bld) [Vol rate/Area] 25 mL/min/{1.73_m2} Low >60 [facility] Comment on above: mL/min/1.73m2 CKD-EP I Creatinine Equation (2020) Hematocrit Auto (Bld) [Volum e fraction]Ordered By: Pepe Au on 02-26-2025 Hematocrit (Bld) [Volume fraction] 35.4 % Low 40-54 [facility] Hemoglobin measurementOrdere d By: Pepe Au on 02-26-2025 Hemoglobin (Bld) [Mass/Vol] 11.3 g/dL Low 13.0-16.5 [facility] Immature granulocytes/100 WB C Auto (Bld)Ordered By: Pepe Au on 02-26-2025 Immature granulocytes/100 WBC (Bld) 0.200 % 0.0-0.9 [facility] Comment on above: IG% - Immature Granu locytes (promyelocytes, myelocytes and metamyelocytes) > 1% indicates that a LEFT SHIFT is Present. Iron (Unsp spec) [Mass/Mass] Ordered By: Pepe Au on 02-26-2025 Iron [Mass/Vol] 75 ug/dL 65-175 [facility] Iron measurement (mass/mass) Ordered By: Pepe Au on 02-26-2025 Iron (Unsp spec) [Mass/Mass] 75 ug/dL 65-175 [facility] Iron saturation [Mass fracti on]Ordered By: Pepe Au on 02-26-2025 Iron Saturation 34.4 % 9-55 [facility] Comment on above: Previous reported re sult: 34.0 %Edited by: JUSTIN on 02/26/25:1611 AMENDED REPORT 02/26/25 1611 IRON SATURATION previously reported as: 34.0 % Lymphocytes Auto (Unsp spec) [#/Vol]Ordered By: Pepe Au on 02-26-2025 Lymphocytes (Bld) [#/Vol] 1.72 10*3/uL 0.83-4.51 [facility] Lymphocytes/100 WBC Auto (Un sp spec)Ordered By: Pepe Au on 02-26-2025 Lymphocytes/100 WBC (Bld) 21.0 % 19-41 [facility] MCV (mean corpuscular volume ) determinationOrdered By: Pepe Au on 02-26-2025 MCV (RBC) [Entitic vol] 98.9 fL High 80-94 [facility] Mean corpuscular hemoglobin (MCH) determinationOrdered By: Pepe Au on 02-26-2025 MCH (RBC) [Entitic mass] 31.6 pg 27.0-32.0 [facility] Mean corpuscular hemoglobin concentration (MCHC) determinationOrdered By: Pepe Au on 02-26-2025 MCHC (RBC) [Mass/Vol] 31.9 g/dL Low 32-36 [facility] Mean platelet volume determi nationOrdered By: Pepe Au on 02-26-2025 Platelet mean volume (Bld) [Entitic vol] 10.8 fL 6.2-12.0 [facility] Monocyte percentageOrdered B y: Pepe Au on 02-26-2025 Monocytes/100 WBC (Bld) 7.0 % 0-10 [facility] Neutrophil percentageOrdered By: Pepe Au on 02-26-2025 Neutrophils/100 WBC (Bld) 69.1 % 47-70 [facility] No Panel InformationOrdered By: Pepe Au on 02-26-2025 Unsaturated Iron Binding Capacity 143 ug/dL Low 228-428 [facility] Nucleated red blood cell per centageOrdered By: Pepe Au on 02-26-2025 Nucleated RBC/100 WBC (Bld) [Ratio] 0 % 0-5 [facility] PTH intactOrdered By: Paula Au on 02-26-2025 Parathyroid Hormone (Intact) 49 pg/mL 11-61 [facility] Platelet countOrdered By: Chaim Au on 02-26-2025 Platelets (Bld) [#/Vol] 114 10*3/uL Low 150-450 [facility] Potassium (Unsp spec) [Mass/ Vol]Ordered By: Pepe Au on 02-26-2025 Potassium [Moles/Vol] 4.8 mmol/L 3.3-5.1 [facility] Potassium measurement (mass/ volume)Ordered By: Pepe Au on 02-26-2025 Potassium (Unsp spec) [Mass/Vol] 4.8 mmol/L 3.3-5.1 [facility] RBC Auto (Bld) [#/Vol]Ordere d By: Pepe Au on 02-26-2025 RBC (Bld) [#/Vol] 3.58 10*6/uL Low 4.6-6.2 [facility] Serum creatinine measurement (mass/volume)Ordered By: Pepe Au on 02-26-2025 Creatinine [Mass/Vol] 2.48 mg/dL High 0.70-1.20 [facility] Serum glucose measurement (m ass/volume)Ordered By: Pepe Au on 02-26-2025 Glucose [Mass/Vol] 136 mg/dL High 70-99 [facility] Serum or plasma albumin aubree urement (mass/volume)Ordered By: Pepe Au on 02-26-2025 Albumin [Mass/Vol] 3.7 g/dL 3.4-4.8 [facility] Serum or plasma calcium aubree urement (mass/volume)Ordered By: Pepe Au on 02-26-2025 Calcium [Mass/Vol] 9.0 mg/dL 7.6-11.0 [facility] Serum or plasma ferritin laurie surement (mass/volume)Ordered By: Pepe Au on 02-26-2025 Ferritin [Mass/Vol] 223 ng/mL 37-417 [facility] Serum or plasma iron saturat ion measurement (mass fraction)Ordered By: Pepe Au on 02-26-2025 Iron saturation [Mass fraction] 34.4 % 9-55 [facility] Comment on above: Previous reported re sult: 34.0 %Edited by: JUSTIN on 02/26/25:1611 AMENDED REPORT 02/26/25 1611 IRON SATURATION previously reported as: 34.0 % Serum or plasma urea nitroge n measurement (mass/volume)Ordered By: Pepe Au on 02-26-2025 Urea nitrogen [Mass/Vol] 45 mg/dL High 4-19 [facility] Serum phosphorus measurement Ordered By: Pepe Au on 02-26-2025 Phosphorus Level 3.2 mg/dL 2.7-4.5 [facility] Sodium levelOrdered By: Lety Au on 02-26-2025 Sodium [Moles/Vol] 143 mmol/L 133-145 [facility] White blood cell (WBC) count Ordered By: Pepe Au on 02-26-2025 WBC (Bld) [#/Vol] 8.2 10*3/uL 4.4-11.0 [facility] Absolute lymphocyte countOrd ered By: Pepe Au on 01-29-2025 Lymphocytes Auto (Unsp spec) [#/Vol] 1.70 10*3/uL 0.83-4.51 [facility] Absolute neutrophil countOrd ered By: Pepe Au on 01-29-2025 Neutrophils (Bld) [#/Vol] 8.4 10*3/uL High 2.0-7.7 [facility] Anion gap in Serum or Plasma Ordered By: Pepe Au on 01-29-2025 Anion gap [Moles/Vol] 14 mmol/L 5-15 [facility] Automated lymphocyte count a s percentage of total leukocytesOrdered By: Pepe Au on 01-29-2025 Lymphocytes/100 WBC Auto (Unsp spec) 15.5 % Low 19-41 [facility] BUN/creatinine ratioOrdered By: Pepe Au on 01-29-2025 Urea nitrogen/Creatinine [Mass ratio] 20.8 mg/mg High 10-20 [facility] Basophil percentageOrdered B y: Pepe Au on 01-29-2025 Basophils/100 WBC (Bld) 0.3 % 0-1 [facility] Calculated total iron bindin g capacityOrdered By: Pepe Au on 01-29-2025 Total Iron Binding Capacity 242 ug/dL Low 250-450 [facility] Carbon dioxide, total [Moles /volume] in Central venous bloodOrdered By: Pepe Au on 01-29-2025 CO2 [Moles/Vol] 21.4 mmol/L 21.0-32.0 [facility] Chloride assayOrdered By: Chaim Au on 01-29-2025 Chloride [Moles/Vol] 106 mmol/L 98-108 [facility] Eosinophil percentageOrdered By: Pepe Au on 01-29-2025 Eosinophils/100 WBC (Bld) 1.0 % 0-5 [facility] Erythrocyte distribution wid th (RBC) [Ratio]Ordered By: Pepe Au on 01-29-2025 Erythrocyte distribution width (RBC) [Entitic vol] 45.9 fL High 35.1-43.9 [facility] Erythrocyte distribution wid th ratioOrdered By: Pepe Au on 01-29-2025 Erythrocyte distribution width (RBC) [Ratio] 12.9 % 11.6-14.6 [facility] Erythrocyte distribution wid th standard deviationOrdered By: Pepe Au on 01-29-2025 Erythrocyte distribution width (RBC) [Ratio] 45.9 fl High 35.1-43.9 [facility] GFR/1.73 sq M.predicted henry g non-blacks MDRD (S/P/Bld) [Vol rate/Area]Ordered By: Pepe Au on 01-29-2025 Estimated GFR (MDRD) Non-Af Amer 24 Low >60 [facility] Comment on above: mL/min/1.73m2 CKD-EP I Creatinine Equation (2020) Glomerular filtration rate ( GFR) estimation/1.73 sq m using serum, plasma, or whole bOrdered By: Pepe Au on 01-29-2025 GFR/1.73 sq M.predicted among non-blacks MDRD (S/P/Bld) [Vol rate/Area] 24 mL/min/{1.73_m2} Low >60 [facility] Comment on above: mL/min/1.73m2 CKD-EP I Creatinine Equation (2020) Hematocrit Auto (Bld) [Volum e fraction]Ordered By: Pepe Au on 01-29-2025 Hematocrit (Bld) [Volume fraction] 37.9 % Low 40-54 [facility] Hemoglobin measurementOrdere d By: Pepe Au on 01-29-2025 Hemoglobin (Bld) [Mass/Vol] 12.3 g/dL Low 13.0-16.5 [facility] Immature granulocytes/100 WB C Auto (Bld)Ordered By: Pepe Au on 01-29-2025 Immature granulocytes/100 WBC (Bld) 0.400 % 0.0-0.9 [facility] Comment on above: IG% - Immature Granu locytes (promyelocytes, myelocytes and metamyelocytes) > 1% indicates that a LEFT SHIFT is Present. Iron (Unsp spec) [Mass/Mass] Ordered By: Pepe Au on 01-29-2025 Iron [Mass/Vol] 84 ug/dL 65-175 [facility] Iron measurement (mass/mass) Ordered By: Pepe Au on 01-29-2025 Iron (Unsp spec) [Mass/Mass] 84 ug/dL 65-175 [facility] Iron saturation [Mass fracti on]Ordered By: Pepe Au on 01-29-2025 Iron Saturation 35.0 % 15.0-55.0 [facility] Lymphocytes Auto (Unsp spec) [#/Vol]Ordered By: Pepe Au on 01-29-2025 Lymphocytes (Bld) [#/Vol] 1.70 10*3/uL 0.83-4.51 [facility] Lymphocytes/100 WBC Auto (Un sp spec)Ordered By: Pepe Au on 01-29-2025 Lymphocytes/100 WBC (Bld) 15.5 % Low 19-41 [facility] MCV (mean corpuscular volume ) determinationOrdered By: Pepe Au on 01-29-2025 MCV (RBC) [Entitic vol] 98.2 fL High 80-94 [facility] Mean corpuscular hemoglobin (MCH) determinationOrdered By: Pepe Au on 01-29-2025 MCH (RBC) [Entitic mass] 31.9 pg 27.0-32.0 [facility] Mean corpuscular hemoglobin concentration (MCHC) determinationOrdered By: Pepe Au on 01-29-2025 MCHC (RBC) [Mass/Vol] 32.5 g/dL 32-36 [facility] Mean platelet volume determi nationOrdered By: Pepe Au on 01-29-2025 Platelet mean volume (Bld) [Entitic vol] 11.5 fL 6.2-12.0 [facility] Monocyte percentageOrdered B y: Pepe Au on 01-29-2025 Monocytes/100 WBC (Bld) 6.5 % 0-10 [facility] Neutrophil percentageOrdered By: Pepe Au on 01-29-2025 Neutrophils/100 WBC (Bld) 76.3 % High 47-70 [facility] No Panel InformationOrdered By: Pepe Au on 01-29-2025 Unsaturated Iron Binding Capacity 158 ug/dL Low 228-428 [facility] Nucleated red blood cell per centageOrdered By: Pepe Au on 01-29-2025 Nucleated RBC/100 WBC (Bld) [Ratio] 0 % 0-5 [facility] PTH intactOrdered By: Paula Au on 01-29-2025 Parathyroid Hormone (Intact) 30 pg/mL 11-61 [facility] Platelet countOrdered By: Chaim Au on 01-29-2025 Platelets (Bld) [#/Vol] 115 10*3/uL Low 150-450 [facility] Potassium (Unsp spec) [Mass/ Vol]Ordered By: Pepe Au on 01-29-2025 Potassium [Moles/Vol] 4.4 mmol/L 3.3-5.1 [facility] Potassium measurement (mass/ volume)Ordered By: Pepe Au on 01-29-2025 Potassium (Unsp spec) [Mass/Vol] 4.4 mmol/L 3.3-5.1 [facility] RBC Auto (Bld) [#/Vol]Ordere d By: Pepe Au on 01-29-2025 RBC (Bld) [#/Vol] 3.86 10*6/uL Low 4.6-6.2 [facility] Serum creatinine measurement (mass/volume)Ordered By: Pepe Au on 01-29-2025 Creatinine [Mass/Vol] 2.59 mg/dL High 0.70-1.20 [facility] Serum glucose measurement (m ass/volume)Ordered By: Pepe Au on 01-29-2025 Glucose [Mass/Vol] 110 mg/dL High 70-99 [facility] Serum or plasma albumin aubree urement (mass/volume)Ordered By: Pepe Au on 01-29-2025 Albumin [Mass/Vol] 4.0 g/dL 3.4-4.8 [facility] Serum or plasma calcium aubree urement (mass/volume)Ordered By: Pepe Au on 01-29-2025 Calcium [Mass/Vol] 9.8 mg/dL 7.6-11.0 [facility] Serum or plasma ferritin laurie surement (mass/volume)Ordered By: Pepe Au on 01-29-2025 Ferritin [Mass/Vol] 252 ng/mL 37-417 [facility] Serum or plasma iron saturat ion measurement (mass fraction)Ordered By: Pepe Au on 01-29-2025 Iron saturation [Mass fraction] 35.0 % 15.0-55.0 [facility] Serum or plasma urea nitroge n measurement (mass/volume)Ordered By: Pepe Au on 01-29-2025 Urea nitrogen [Mass/Vol] 54 mg/dL High 4-19 [facility] Serum phosphorus measurement Ordered By: Pepe Au on 01-29-2025 Phosphorus Level 3.1 mg/dL 2.7-4.5 [facility] Sodium levelOrdered By: Lety Au on 01-29-2025 Sodium [Moles/Vol] 141 mmol/L 133-145 [facility] White blood cell (WBC) count Ordered By: Pepe Au on 01-29-2025 WBC (Bld) [#/Vol] 11.0 10*3/uL 4.4-11.0 [facility] Absolute lymphocyte countOrd ered By: Pepe Au on 01-01-2025 Lymphocytes Auto (Unsp spec) [#/Vol] 1.90 10*3/uL 0.83-4.51 [facility] Absolute neutrophil countOrd ered By: Pepe Au on 01-01-2025 Neutrophils (Bld) [#/Vol] 5.0 10*3/uL 2.0-7.7 [facility] Automated lymphocyte count a s percentage of total leukocytesOrdered By: Pepe Au on 01-01-2025 Lymphocytes/100 WBC Auto (Unsp spec) 24.6 % 19-41 [facility] Basophil percentageOrdered B y: Pepe Au on 01-01-2025 Basophils/100 WBC (Bld) 0.5 % 0-1 [facility] Blood urea nitrogen (BUN)/cr eatinine ratioOrdered By: Pepe Au on 01-01-2025 Urea nitrogen/Creatinine [Mass ratio] 19.0 mg/mg 10-20 [facility] Carbon dioxide measurementOr dered By: Pepe Au on 01-01-2025 CO2 [Moles/Vol] 28.0 mmol/L 21.0-32.0 [facility] Chloride measurementOrdered By: Ppee Au on 01-01-2025 Chloride [Moles/Vol] 110 mmol/L High 98-107 [facility] Eosinophil percentageOrdered By: Pepe Au on 01-01-2025 Eosinophils/100 WBC (Bld) 2.3 % 0-5 [facility] Erythrocyte distribution wid th (RBC) [Ratio]Ordered By: Pepe Au on 01-01-2025 Erythrocyte distribution width (RBC) [Entitic vol] 49.0 fL High 35.1-43.9 [facility] Erythrocyte distribution wid th ratioOrdered By: Pepe Au on 01-01-2025 Erythrocyte distribution width (RBC) [Ratio] 13.2 % 11.6-14.6 [facility] Erythrocyte distribution wid th standard deviationOrdered By: Pepe Au on 01-01-2025 Erythrocyte distribution width (RBC) [Ratio] 49.0 fl High 35.1-43.9 [facility] Estimated glomerular filtrat ion rate (GFR) AmericanOrdered By: Pepe Au on 01-01-2025 Estimated GFR (MDRD) Amer 31 mL/min Low >60 [facility] Comment on above: GFR Calc Ferritin measurementOrdered By: Pepe Au on 01-01-2025 Ferritin [Mass/Vol] 152 ng/mL 26-388 [facility] Glomerular filtration rate ( GFR) estimationOrdered By: Pepe Au on 01-01-2025 Estimated GFR (MDRD) Non-Af Amer 25 mL/min Low >60 [facility] Comment on above: Non- GFR Calc GFR/1.73 sq M.predicted among non-blacks MDRD (S/P/Bld) [Vol rate/Area] 25 mL/min/{1.73_m2} Low >60 [facility] Comment on above: Non- GFR Calc Glucose measurementOrdered B y: Pepe Au on 01-01-2025 Glucose [Mass/Vol] 124 mg/dL High 74-106 [facility] Comment on above: Fasting Glucose resu lt from 100 to 125 mg/dL suggests IMPAIRED HOMEOSTASIS per A.D.A. criteria. Hematocrit Auto (Bld) [Volum e fraction]Ordered By: Pepe Au on 01-01-2025 Hematocrit (Bld) [Volume fraction] 35.8 % Low 40-54 [facility] Hemoglobin measurementOrdere d By: Pepe Au on 01-01-2025 Hemoglobin (Bld) [Mass/Vol] 11.5 g/dL Low 13.0-16.5 [facility] Immature granulocytes/100 WB C Auto (Bld)Ordered By: Pepe Au on 01-01-2025 Immature granulocytes/100 WBC (Bld) 0.400 % 0.0-0.9 [facility] Comment on above: IG% - Immature Granu locytes (promyelocytes, myelocytes and metamyelocytes) > 1% indicates that a LEFT SHIFT is Present. Iron (Unsp spec) [Mass/Mass] Ordered By: Pepe Au on 01-01-2025 Iron [Mass/Vol] 53 ug/dL Low 65-175 [facility] Iron measurement (mass/mass) Ordered By: Pepe Au on 01-01-2025 Iron (Unsp spec) [Mass/Mass] 53 ug/dL Low 65-175 [facility] Iron saturation [Mass fracti on]Ordered By: Pepe Au on 01-01-2025 Iron Saturation 25.1 % 15.0-55.0 [facility] Lymphocytes Auto (Unsp spec) [#/Vol]Ordered By: Pepe Au on 01-01-2025 Lymphocytes (Bld) [#/Vol] 1.90 10*3/uL 0.83-4.51 [facility] Lymphocytes/100 WBC Auto (Un sp spec)Ordered By: Pepe Au on 01-01-2025 Lymphocytes/100 WBC (Bld) 24.6 % 19-41 [facility] MCV (mean corpuscular volume ) determinationOrdered By: Pepe Au on 01-01-2025 MCV (RBC) [Entitic vol] 100.3 fL High 80-94 [facility] Mean corpuscular hemoglobin (MCH) determinationOrdered By: Pepe Au on 01-01-2025 MCH (RBC) [Entitic mass] 32.2 pg High 27.0-32.0 [facility] Mean corpuscular hemoglobin concentration (MCHC) determinationOrdered By: Pepe Au on 01-01-2025 MCHC (RBC) [Mass/Vol] 32.1 g/dL 32-36 [facility] Mean platelet volume determi nationOrdered By: Pepe Au on 01-01-2025 Platelet mean volume (Bld) [Entitic vol] 10.5 fL 6.2-12.0 [facility] Monocyte percentageOrdered B y: Pepe Au on 01-01-2025 Monocytes/100 WBC (Bld) 7.0 % 0-10 [facility] Neutrophil percentageOrdered By: Pepe Au on 01-01-2025 Neutrophils/100 WBC (Bld) 65.2 % 47-70 [facility] Nucleated red blood cell per centageOrdered By: Pepe Au on 01-01-2025 Nucleated RBC/100 WBC (Bld) [Ratio] 0 % 0-5 [facility] Phosphorus measurementOrdere d By: Pepe Au on 01-01-2025 Phosphorus Level 3.4 mg/dL 2.5-4.9 [facility] Platelet countOrdered By: Chaim Au on 01-01-2025 Platelets (Bld) [#/Vol] 105 10*3/uL Low 150-450 [facility] Potassium measurementOrdered By: Pepe Au on 01-01-2025 Potassium [Moles/Vol] 4.8 mmol/L 3.5-5.1 [facility] RBC Auto (Bld) [#/Vol]Ordere d By: Pepe Au on 01-01-2025 RBC (Bld) [#/Vol] 3.57 10*6/uL Low 4.6-6.2 [facility] Serum or plasma albumin aubree urement (mass/volume)Ordered By: Pepe Au on 01-01-2025 Albumin [Mass/Vol] 3.4 g/dL 3.2-5.0 [facility] Serum or plasma calcium aubree urement (mass/volume)Ordered By: Pepe Au on 01-01-2025 Calcium [Mass/Vol] 10.2 mg/dL High 8.5-10.1 [facility] Serum or plasma creatinine m easurement (mass/volume)Ordered By: Pepe Au on 01-01-2025 Creatinine [Mass/Vol] 2.58 mg/dL High 0.70-1.30 [facility] Comment on above: The validity of the calculated GFR & GFRAA in patients over 70 years has not been determined. Clinical correlation is essential. Serum or plasma iron saturat ion measurement (mass fraction)Ordered By: Pepe Au on 01-01-2025 Iron saturation [Mass fraction] 25.1 % 15.0-55.0 [facility] Serum or plasma urea nitroge n measurement (mass/volume)Ordered By: Pepe Au on 01-01-2025 Urea nitrogen [Mass/Vol] 49 mg/dL High 7-18 [facility] Sodium levelOrdered By: Lety Au on 01-01-2025 Sodium [Moles/Vol] 142 mmol/L 136-145 [facility] TIBCOrdered By: Pepe coley on 01-01-2025 Total Iron Binding Capacity 211 ug/dL Low 250-450 [facility] White blood cell (WBC) count Ordered By: Pepe Au on 01-01-2025 WBC (Bld) [#/Vol] 7.7 10*3/uL 4.4-11.0 [facility] Absolute neutrophil countOrd ered By: Pepe Au on 12-04-2024 Neutrophils (Bld) [#/Vol] 4.9 10*3/uL 2.0-7.7 [facility] Basophil percentageOrdered B y: Pepe Au on 12-04-2024 Basophils/100 WBC (Bld) 0.5 % 0-1 [facility] Blood urea nitrogen (BUN)/cr eatinine ratioOrdered By: Pepe Au on 12-04-2024 Urea nitrogen/Creatinine [Mass ratio] 18.9 mg/mg 10-20 [facility] Carbon dioxide measurementOr dered By: Pepe Au on 12-04-2024 CO2 [Moles/Vol] 24.0 mmol/L 21.0-32.0 [facility] Chloride measurementOrdered By: Pepe Au on 12-04-2024 Chloride [Moles/Vol] 116 mmol/L High 98-107 [facility] Eosinophil percentageOrdered By: Pepe Au on 12-04-2024 Eosinophils/100 WBC (Bld) 2.8 % 0-5 [facility] Erythrocyte distribution wid th (RBC) [Ratio]Ordered By: Pepe Au on 12-04-2024 Erythrocyte distribution width (RBC) [Entitic vol] 54.9 fL High 35.1-43.9 [facility] Erythrocyte distribution wid th ratioOrdered By: Pepe Au on 12-04-2024 Erythrocyte distribution width (RBC) [Ratio] 14.7 % High 11.6-14.6 [facility] Estimated glomerular filtrat ion rate (GFR) AmericanOrdered By: Pepe Au on 12-04-2024 Estimated GFR (MDRD) Amer 31 mL/min Low >60 [facility] Comment on above: GFR Calc Ferritin measurementOrdered By: Pepe Au on 12-04-2024 Ferritin [Mass/Vol] 140 ng/mL 26-388 [facility] Glomerular filtration rate ( GFR) estimationOrdered By: Pepe Au on 12-04-2024 Estimated GFR (MDRD) Non-Af Amer 26 mL/min Low >60 [facility] Comment on above: Non- GFR Calc Glucose measurementOrdered B y: Pepe Au on 12-04-2024 Glucose [Mass/Vol] 128 mg/dL High 74-106 [facility] Comment on above: Fasting Glucose resu lt greater than or equal to 126 mg/dL suggests DIABETES MELLITUS per A.D.A. criteria. Hematocrit Auto (Bld) [Volum e fraction]Ordered By: Pepe Au on 12-04-2024 Hematocrit (Bld) [Volume fraction] 36.7 % Low 40-54 [facility] Hemoglobin measurementOrdere d By: Pepe Au on 12-04-2024 Hemoglobin (Bld) [Mass/Vol] 11.6 g/dL Low 13.0-16.5 [facility] Immature granulocytes/100 WB C Auto (Bld)Ordered By: Pepe Au on 12-04-2024 Immature granulocytes/100 WBC (Bld) 0.400 % 0.0-0.9 [facility] Comment on above: IG% - Immature Granu locytes (promyelocytes, myelocytes and metamyelocytes) > 1% indicates that a LEFT SHIFT is Present. Iron (Unsp spec) [Mass/Mass] Ordered By: Pepe Au on 12-04-2024 Iron [Mass/Vol] 77 ug/dL 65-175 [facility] Iron saturation [Mass fracti on]Ordered By: Pepe Au on 12-04-2024 Iron Saturation 32.0 % 15.0-55.0 [facility] Lymphocytes Auto (Unsp spec) [#/Vol]Ordered By: Pepe Au on 12-04-2024 Lymphocytes (Bld) [#/Vol] 1.91 10*3/uL 0.83-4.51 [facility] Lymphocytes/100 WBC Auto (Un sp spec)Ordered By: Pepe Au on 12-04-2024 Lymphocytes/100 WBC (Bld) 25.4 % 19-41 [facility] MCV (mean corpuscular volume ) determinationOrdered By: Pepe Au on 12-04-2024 MCV (RBC) [Entitic vol] 101.7 fL High 80-94 [facility] Mean corpuscular hemoglobin (MCH) determinationOrdered By: Ppee Au on 12-04-2024 MCH (RBC) [Entitic mass] 32.1 pg High 27.0-32.0 [facility] Mean corpuscular hemoglobin concentration (MCHC) determinationOrdered By: Pepe Au on 12-04-2024 MCHC (RBC) [Mass/Vol] 31.6 g/dL Low 32-36 [facility] Mean platelet volume determi nationOrdered By: Pepe Au on 12-04-2024 Platelet mean volume (Bld) [Entitic vol] 10.7 fL 6.2-12.0 [facility] Monocyte percentageOrdered B y: Pepe Au on 12-04-2024 Monocytes/100 WBC (Bld) 6.4 % 0-10 [facility] Neutrophil percentageOrdered By: Pepe Au on 12-04-2024 Neutrophils/100 WBC (Bld) 64.5 % 47-70 [facility] Nucleated red blood cell per centageOrdered By: Pepe Au on 12-04-2024 Nucleated RBC/100 WBC (Bld) [Ratio] 0 % 0-5 [facility] Phosphorus measurementOrdere d By: Pepe Au on 12-04-2024 Phosphorus Level 3.2 mg/dL 2.5-4.9 [facility] Platelet countOrdered By: Chaim Au on 12-04-2024 Platelets (Bld) [#/Vol] 117 10*3/uL Low 150-450 [facility] Potassium measurementOrdered By: Pepe Au on 12-04-2024 Potassium [Moles/Vol] 5.0 mmol/L 3.5-5.1 [facility] RBC Auto (Bld) [#/Vol]Ordere d By: Pepe Au on 12-04-2024 RBC (Bld) [#/Vol] 3.61 10*6/uL Low 4.6-6.2 [facility] Serum or plasma albumin aubree urement (mass/volume)Ordered By: Pepe Au on 12-04-2024 Albumin [Mass/Vol] 3.5 g/dL 3.2-5.0 [facility] Serum or plasma calcium aubree urement (mass/volume)Ordered By: Pepe Au on 12-04-2024 Calcium [Mass/Vol] 9.6 mg/dL 8.5-10.1 [facility] Serum or plasma creatinine m easurement (mass/volume)Ordered By: Pepe Au on 12-04-2024 Creatinine [Mass/Vol] 2.54 mg/dL High 0.70-1.30 [facility] Comment on above: The validity of the calculated GFR & GFRAA in patients over 70 years has not been determined. Clinical correlation is essential. Serum or plasma urea nitroge n measurement (mass/volume)Ordered By: Pepe Au on 12-04-2024 Urea nitrogen [Mass/Vol] 48 mg/dL High 7-18 [facility] Sodium levelOrdered By: Lety Au on 12-04-2024 Sodium [Moles/Vol] 143 mmol/L 136-145 [facility] TIBCOrdered By: Pepe coley on 12-04-2024 Total Iron Binding Capacity 241 ug/dL Low 250-450 [facility] White blood cell (WBC) count Ordered By: Pepe Au on 12-04-2024 WBC (Bld) [#/Vol] 7.5 10*3/uL 4.4-11.0 [facility] Absolute neutrophil countOrd ered By: Pepe Au on 10-31-2024 Neutrophils (Bld) [#/Vol] 4.2 10*3/uL 2.0-7.7 [facility] Basophil percentageOrdered B y: Pepe Au on 10-31-2024 Basophils/100 WBC (Bld) 0.3 % 0-1 [facility] Blood urea nitrogen (BUN)/cr eatinine ratioOrdered By: Pepe Au on 10-31-2024 Urea nitrogen/Creatinine [Mass ratio] 27.8 mg/mg High 10-20 [facility] Carbon dioxide measurementOr dered By: Pepe Au on 10-31-2024 CO2 [Moles/Vol] 24.0 mmol/L 21.0-32.0 [facility] Chloride measurementOrdered By: Pepe Au on 10-31-2024 Chloride [Moles/Vol] 113 mmol/L High 98-107 [facility] Eosinophil percentageOrdered By: Pepe Au on 10-31-2024 Eosinophils/100 WBC (Bld) 4.2 % 0-5 [facility] Erythrocyte distribution wid th (RBC) [Ratio]Ordered By: Pepe Au on 10-31-2024 Erythrocyte distribution width (RBC) [Entitic vol] 51.4 fL High 35.1-43.9 [facility] Erythrocyte distribution wid th ratioOrdered By: Pepe Au on 10-31-2024 Erythrocyte distribution width (RBC) [Ratio] 14.3 % 11.6-14.6 [facility] Estimated glomerular filtrat ion rate (GFR) AmericanOrdered By: Pepe Au on 10-31-2024 Estimated GFR (MDRD) Amer 32 mL/min Low >60 [facility] Comment on above: GFR Calc Ferritin measurementOrdered By: Pepe Au on 10-31-2024 Ferritin [Mass/Vol] 176 ng/mL 26-388 [facility] Glomerular filtration rate ( GFR) estimationOrdered By: Pepe Au on 10-31-2024 Estimated GFR (MDRD) Non-Af Amer 26 mL/min Low >60 [facility] Comment on above: Non- GFR Calc Glucose measurementOrdered B y: Pepe Au on 10-31-2024 Glucose [Mass/Vol] 145 mg/dL High 74-106 [facility] Comment on above: Fasting Glucose resu lt greater than or equal to 126 mg/dL suggests DIABETES MELLITUS per A.D.A. criteria. Hematocrit Auto (Bld) [Volum e fraction]Ordered By: Pepe Au on 10-31-2024 Hematocrit (Bld) [Volume fraction] 33.6 % Low 40-54 [facility] Hemoglobin measurementOrdere d By: Pepe Au on 10-31-2024 Hemoglobin (Bld) [Mass/Vol] 10.9 g/dL Low 13.0-16.5 [facility] Immature granulocytes/100 WB C Auto (Bld)Ordered By: Pepe Au on 10-31-2024 Immature granulocytes/100 WBC (Bld) 0.600 % 0.0-0.9 [facility] Comment on above: IG% - Immature Granu locytes (promyelocytes, myelocytes and metamyelocytes) > 1% indicates that a LEFT SHIFT is Present. Intact parathyroid hormone ( iPTH) measurementOrdered By: Pepe Au on 10-31-2024 Parathyroid Hormone (Intact) 16.0 pg/mL Low 18.4-80.1 [facility] Iron (Unsp spec) [Mass/Mass] Ordered By: Pepe Au on 10-31-2024 Iron [Mass/Vol] 63 ug/dL Low 65-175 [facility] Iron saturation [Mass fracti on]Ordered By: Pepe Au on 10-31-2024 Iron Saturation 26.7 % 15.0-55.0 [facility] Lymphocytes Auto (Unsp spec) [#/Vol]Ordered By: Pepe Au on 10-31-2024 Lymphocytes (Bld) [#/Vol] 1.70 10*3/uL 0.83-4.51 [facility] Lymphocytes/100 WBC Auto (Un sp spec)Ordered By: Pepe Au on 10-31-2024 Lymphocytes/100 WBC (Bld) 25.4 % 19-41 [facility] MCV (mean corpuscular volume ) determinationOrdered By: Pepe Au on 10-31-2024 MCV (RBC) [Entitic vol] 99.4 fL High 80-94 [facility] Mean corpuscular hemoglobin (MCH) determinationOrdered By: Pepe Au on 10-31-2024 MCH (RBC) [Entitic mass] 32.2 pg High 27.0-32.0 [facility] Mean corpuscular hemoglobin concentration (MCHC) determinationOrdered By: Pepe Au on 10-31-2024 MCHC (RBC) [Mass/Vol] 32.4 g/dL 32-36 [facility] Mean platelet volume determi nationOrdered By: Pepe Au on 10-31-2024 Platelet mean volume (Bld) [Entitic vol] 10.8 fL 6.2-12.0 [facility] Monocyte percentageOrdered B y: Pepe Au on 10-31-2024 Monocytes/100 WBC (Bld) 6.4 % 0-10 [facility] Neutrophil percentageOrdered By: Pepe Au on 10-31-2024 Neutrophils/100 WBC (Bld) 63.1 % 47-70 [facility] Nucleated red blood cell per centageOrdered By: Pepe Au on 10-31-2024 Nucleated RBC/100 WBC (Bld) [Ratio] 0 % 0-5 [facility] Phosphorus measurementOrdere d By: Pepe Au on 10-31-2024 Phosphorus Level 3.5 mg/dL 2.5-4.9 [facility] Platelet countOrdered By: Chaim Au on 10-31-2024 Platelets (Bld) [#/Vol] 133 10*3/uL Low 150-450 [facility] Potassium measurementOrdered By: Pepe Au on 10-31-2024 Potassium [Moles/Vol] 4.4 mmol/L 3.5-5.1 [facility] RBC Auto (Bld) [#/Vol]Ordere d By: Pepe Au on 10-31-2024 RBC (Bld) [#/Vol] 3.38 10*6/uL Low 4.6-6.2 [facility] Serum or plasma albumin aubree urement (mass/volume)Ordered By: Pepe Au on 10-31-2024 Albumin [Mass/Vol] 3.4 g/dL 3.2-5.0 [facility] Serum or plasma calcium aubree urement (mass/volume)Ordered By: Pepe Au on 10-31-2024 Calcium [Mass/Vol] 9.7 mg/dL 8.5-10.1 [facility] Serum or plasma creatinine m easurement (mass/volume)Ordered By: Pepe Au on 10-31-2024 Creatinine [Mass/Vol] 2.52 mg/dL High 0.70-1.30 [facility] Comment on above: The validity of the calculated GFR & GFRAA in patients over 70 years has not been determined. Clinical correlation is essential. Serum or plasma urea nitroge n measurement (mass/volume)Ordered By: Pepe Au on 10-31-2024 Urea nitrogen [Mass/Vol] 70 mg/dL High 7-18 [facility] Sodium levelOrdered By: Lety Au on 10-31-2024 Sodium [Moles/Vol] 143 mmol/L 136-145 [facility] TIBCOrdered By: Pepe coley on 10-31-2024 Total Iron Binding Capacity 236 ug/dL Low 250-450 [facility] White blood cell (WBC) count Ordered By: Pepe Au on 10-31-2024 WBC (Bld) [#/Vol] 6.7 10*3/uL 4.4-11.0 [facility] Basophil percentageOrdered B y: Rios Downey on 03-22-2024 Bilirubin [Mass/Vol] 0.60 mg/dL 0.20-1.00 [facility] Comment on above: For patients on eltr ombopag therapy, use of Dimension [place] TBIL is not recommended. Chloride [Moles/Vol] 113 mmol/L 98-107 [facility] Cholesterol [Mass/Vol] 191 mg/dL <200 [facility] Comment on above: <200 mg/dL Desirable 200-240 mg/dL Borderline >240 mg/dL High Risk Glucose [Mass/Vol] 133 mg/dL 74-106 [facility] Comment on above: Fasting Glucose resu lt greater than or equal to 126 mg/dL suggests DIABETES MELLITUS per A.D.A. criteria. Hemoglobin (Bld) [Mass/Vol] 11.4 g/dL 13.0-16.5 [facility] Potassium [Moles/Vol] 4.7 mmol/L 3.5-5.1 [facility] Protein [Mass/Vol] 7.4 g/dL 6.4-8.2 [facility] Sodium [Moles/Vol] 143 mmol/L 136-145 [facility] Triglyceride [Mass/Vol] 132 mg/dL <199 [facility] Comment on above: The drugs N-Acetylcy steine and Metamizole may falsely depress this assay.Serum Triglycerides Reference Interval Normal <150 mg/dL Borderline high 150 - 199 mg/dL High 200 - 499 mg/dL Very High > or = 500 mg/dL WBC (Bld) [#/Vol] 8.3 10*3/uL 4.4-11.0 [facility] Cholesterol in LDL Direct as say [Mass/Vol]Ordered By: Rios Downey on 03-22-2024 Cholesterol in LDL [Mass/Vol] 140 mg/dL 0-99 [facility] Determination of erythrocyte mean corpuscular volume (MCV)Ordered By: Rios Downey on 03-22-2024 MCV (RBC) [Entitic vol] 96.2 fL 80-94 [facility] Erythrocyte distribution wid th ratioOrdered By: Rios Downey on 03-22-2024 Erythrocyte distribution width (RBC) [Ratio] 15.1 % 11.6-14.6 [facility] Erythrocyte distribution wid th standard deviationOrdered By: Rios Downey on 03-22-2024 Erythrocyte distribution width (RBC) [Entitic vol] 52.4 fL 35.1-43.9 [facility] Hematocrit Auto (Bld) [Volum e fraction]Ordered By: Rios Downey on 03-22-2024 Hematocrit (Bld) [Volume fraction] 35.8 % 40-54 [facility] Laboratory - Chemistry and C hemistry - challengeOrdered By: Rios Downey on 03-22-2024 Albumin/Globulin [Mass ratio] 0.8 {ratio} 0.9-2.4 [facility] ALP [Catalytic activity/Vol] 141 U/L 45-117 [facility] ALT [Catalytic activity/Vol] 14 U/L 16-61 [facility] Cholesterol in HDL [Mass/Vol] 33 mg/dL >40 [facility] Comment on above: The drugs N-Acetylcy steine and Metamizole may falsely depress this assay. Reference Range HDL <40 mg/dL Low HDL Cholesterol HDL >or= 60 mg/dL High HDL Cholesterol Cholesterol in LDL [Mass/Vol] 132 mg/dL 0-130 [facility] CO2 [Moles/Vol] 24.0 mmol/L 21.0-32.0 [facility] Cobalamin (Vitamin B12) [Mass/Vol] 470 pg/mL 211-911 [facility] Globulin (S) [Mass/Vol] 4.1 g/dL 2.2-4.2 [facility] Magnesium [Mass/Vol] 1.8 mg/dL 1.6-2.6 [facility] Urea nitrogen/Creatinine [Mass ratio] 18.2 mg/mg 10-20 [facility] Laboratory - Hematology and Cell countsOrdered By: Rios Downey on 03-22-2024 MCH (RBC) [Entitic mass] 30.6 pg 27.0-32.0 [facility] MCHC (RBC) [Mass/Vol] 31.8 g/dL 32-36 [facility] Platelet mean volume (Bld) [Entitic vol] 10.5 fL 6.2-12.0 [facility] Platelets (Bld) [#/Vol] 138 10*3/uL 150-450 [facility] Laboratory - Miscellaneous t estsOrdered By: Rios Downey on 03-22-2024 Service comment (Unsp spec) [Interp] TNP [facility] Comment on above: Test not performed No Panel InformationOrdered By: Rios Downey on 03-22-2024 Anti-Nuclear Antibody Screen Negative Negative [facility] Comment on above: Performed at: [place], [place] [id number] Director: Nabeel Ruff PhD, Phone: [phone] Estimated GFR (MDRD) Amer 37 mL/min >60 [facility] Comment on above: GFR Calc Estimated GFR (MDRD) Non-Af Amer 31 mL/min >60 [facility] Comment on above: Non- GFR Calc Folate 26.90 ng/mL 3.1-55.4 [facility] Levetiracetam (Keppra) Level 55.2 ug/mL 10.0-40.0 [facility] Comment on above: Performed at: [place], [place] [id number] Director: Nabeel Ruff PhD, Phone: [phone] at: [facility] - [facility] [address] [id number] Director: Suzy Adames MD, Phone: [phone] Vitamin D 25-Hydroxy 46.6 ng/mL [facility] Comment on above: Vitamin D 25(OH) Sta tus Range Deficiency <20 ng/mL (50nmol/L) Insufficiency 20 - 30 ng/mL (50 - 75 nmol/L) Sufficiency 30 - 100 ng/mL (75 - 250 nmol/L) Toxicity >100 ng/mL (>250 nmol/L) VLDL Cholesterol 26 mg/dL 5-40 [facility] RBC Auto (Bld) [#/Vol]Ordere d By: Rios Downey on 03-22-2024 RBC (Bld) [#/Vol] 3.72 10*6/uL 4.6-6.2 [facility] Serum or plasma calcium aubree urement (mass/volume)Ordered By: Rios Downey on 03-22-2024 Calcium [Mass/Vol] 9.1 mg/dL 8.5-10.1 [facility] Serum or plasma creatinine m easurement (mass/volume)Ordered By: Rios Downey on 03-22-2024 Creatinine [Mass/Vol] 2.20 mg/dL 0.70-1.30 [facility] Comment on above: The validity of the calculated GFR & GFRAA in patients over 70 years has not been determined. Clinical correlation is essential. Serum or plasma thyroid stim ulating hormone (TSH) measurement (units/volume)Ordered By: Rios Downey on 03-22-2024 TSH Qn 6.21 uIU/mL 0.358-3.74 [facility] Serum or plasma transthyreti n measurement (mass/volume)Ordered By: Rios Downey on 03-22-2024 Prealbumin [Mass/Vol] 19.8 mg/dL 20.0-40.0 [facility] Serum or plasma urea nitroge n measurement (mass/volume)Ordered By: Rios Downey on 03-22-2024 Urea nitrogen [Mass/Vol] 40 mg/dL 7-18 [facility] Serum or plasma uric acid me asurement (mass/volume)Ordered By: Rios Downey on 03-22-2024 Urate [Mass/Vol] 5.5 mg/dL 3.5-7.2 [facility] Comment on above: The drugs N-Acetylcy steine and Metamizole may falsely depress this assay. Thin prep Papanicolaou smear with manual screeningOrdered By: Rios Downey on 03-22-2024 Thin prep Papanicolaou smear with manual screening 3.3 g/dL 3.2-5.0 [facility] Thin prep Papanicolaou smear with manual screening 17 U/L 15-37 [facility] Thin prep Papanicolaou smear with manual screening 6 5-15 [facility] Thin prep Papanicolaou smear with manual screening 0.59 ng/dL 0.76-1.46 [facility] Whole blood hemoglobin A1c/t otal hemoglobin ratio (mass fraction)Ordered By: Rios Downey on 03-22-2024 HbA1c (Bld) [Mass fraction] 5.2 % 3.8-5.6 [facility] Comment on above: Normal < 5.7 % Predi abetic 5.7 - 6.4 % Diabetic >or= 6.5 % Please note range changes. Absolute lymphocyte countOrd ered By: [facility] Au on 03-14-2024 Lymphocytes Auto (Unsp spec) [#/Vol] 1.98 10*3/uL 0.83-4.51 [facility] Automated lymphocyte count a s percentage of total leukocytesOrdered By: Pepe Au on 03-14-2024 Lymphocytes/100 WBC Auto (Unsp spec) 25.4 % 19-41 [facility] Basophil percentageOrdered B y: Pepe Au on 03-14-2024 Basophil percentage 2.4 mg/dL 2.5-4.9 [facility] Basophils/100 WBC (Bld) 0.6 % 0-1 [facility] Chloride [Moles/Vol] 112 mmol/L 98-107 [facility] Eosinophils/100 WBC (Bld) 3.9 % 0-5 [facility] Glucose [Mass/Vol] 120 mg/dL 74-106 [facility] Comment on above: Fasting Glucose resu lt from 100 to 125 mg/dL suggests IMPAIRED HOMEOSTASIS per A.D.A. criteria. Hemoglobin (Bld) [Mass/Vol] 11.2 g/dL 13.0-16.5 [facility] Monocytes/100 WBC (Bld) 6.9 % 0-10 [facility] Neutrophils (Bld) [#/Vol] 4.9 10*3/uL 2.0-7.7 [facility] Neutrophils/100 WBC (Bld) 62.9 % 47-70 [facility] Potassium [Moles/Vol] 4.3 mmol/L 3.5-5.1 [facility] Sodium [Moles/Vol] 140 mmol/L 136-145 [facility] WBC (Bld) [#/Vol] 7.8 10*3/uL 4.4-11.0 [facility] Determination of erythrocyte mean corpuscular volume (MCV)Ordered By: Pepe Au on 03-14-2024 MCV (RBC) [Entitic vol] 95.9 fL 80-94 [facility] Erythrocyte distribution wid th ratioOrdered By: Pepe Au on 03-14-2024 Erythrocyte distribution width (RBC) [Ratio] 14.7 % 11.6-14.6 [facility] Erythrocyte distribution wid th standard deviationOrdered By: Pepe Au on 03-14-2024 Erythrocyte distribution width (RBC) [Entitic vol] 51.0 fL 35.1-43.9 [facility] Hematocrit Auto (Bld) [Volum e fraction]Ordered By: Pepe Au on 03-14-2024 Hematocrit (Bld) [Volume fraction] 34.7 % 40-54 [facility] Immature granulocytes/100 WB C Auto (Bld)Ordered By: Pepe Au on 03-14-2024 Immature granulocytes/100 WBC (Bld) 0.300 % 0.0-0.9 [facility] Comment on above: IG% - Immature Granu locytes (promyelocytes, myelocytes and metamyelocytes) > 1% indicates that a LEFT SHIFT is Present. Iron measurement (mass/mass) Ordered By: Pepe Au on 03-14-2024 Iron (Unsp spec) [Mass/Mass] 66 ug/dL 65-175 [facility] Laboratory - Chemistry and C hemistry - challengeOrdered By: Pepe Au on 03-14-2024 CO2 [Moles/Vol] 27.0 mmol/L 21.0-32.0 [facility] Ferritin [Mass/Vol] 122 ng/mL 26-388 [facility] Urea nitrogen/Creatinine [Mass ratio] 22.7 mg/mg 10-20 [facility] Laboratory - Hematology and Cell countsOrdered By: Pepe Au on 03-14-2024 MCH (RBC) [Entitic mass] 30.9 pg 27.0-32.0 [facility] MCHC (RBC) [Mass/Vol] 32.3 g/dL 32-36 [facility] Nucleated RBC/100 WBC (Bld) [Ratio] 0 % 0-5 [facility] Platelet mean volume (Bld) [Entitic vol] 10.3 fL 6.2-12.0 [facility] Platelets (Bld) [#/Vol] 132 10*3/uL 150-450 [facility] No Panel InformationOrdered By: Pepe Au on 03-14-2024 Estimated GFR (MDRD) Amer 41 mL/min >60 [facility] Comment on above: GFR Calc Estimated GFR (MDRD) Non-Af Amer 34 mL/min >60 [facility] Comment on above: Non- GFR Calc Total Iron Binding Capacity 197 ug/dL 250-450 [facility] RBC Auto (Bld) [#/Vol]Ordere d By: Pepe Au on 03-14-2024 RBC (Bld) [#/Vol] 3.62 10*6/uL 4.6-6.2 [facility] Serum or plasma calcium aubree urement (mass/volume)Ordered By: Pepe Au on 03-14-2024 Calcium [Mass/Vol] 8.7 mg/dL 8.5-10.1 [facility] Serum or plasma creatinine m easurement (mass/volume)Ordered By: Pepe Au on 03-14-2024 Creatinine [Mass/Vol] 2.03 mg/dL 0.70-1.30 [facility] Comment on above: The validity of the calculated GFR & GFRAA in patients over 70 years has not been determined. Clinical correlation is essential. Serum or plasma iron saturat ion measurement (mass fraction)Ordered By: Pepe Au on 03-14-2024 Iron saturation [Mass fraction] 33.5 % 15.0-55.0 [facility] Serum or plasma urea nitroge n measurement (mass/volume)Ordered By: Pepe Au on 03-14-2024 Urea nitrogen [Mass/Vol] 46 mg/dL 7-18 [facility] Thin prep Papanicolaou smear with manual screeningOrdered By: [facility] centersteve Au on 03-14-2024 Thin prep Papanicolaou smear with manual screening 3.2 g/dL 3.2-5.0 [facility] Absolute lymphocyte countOrd ered By: Cesar Medina on 02-19-2024 Lymphocytes Auto (Unsp spec) [#/Vol] 1.41 10*3/uL 0.83-4.51 [facility] Automated lymphocyte count a s percentage of total leukocytesOrdered By: Cesar Medina on 02-19-2024 Lymphocytes/100 WBC Auto (Unsp spec) 23.0 % 19-41 [facility] Basophil percentageOrdered B y: Cesar Medina on 02-19-2024 Basophil percentage 0 SEEN /hpf 0-5 [facility] Ammonia (P) [Moles/Vol] 20.0 umol/L 11-32 [facility] Basophils/100 WBC (Bld) 0.3 % 0-1 [facility] Bilirubin [Mass/Vol] 0.40 mg/dL 0.20-1.00 [facility] Comment on above: For patients on eltr ombopag therapy, use of Dimension [place] TBIL is not recommended. Chloride [Moles/Vol] 117 mmol/L 98-107 [facility] Eosinophils/100 WBC (Bld) 4.2 % 0-5 [facility] Glucose [Mass/Vol] 101 mg/dL 74-106 [facility] Comment on above: Fasting Glucose resu lt from 100 to 125 mg/dL suggests IMPAIRED HOMEOSTASIS per A.D.A. criteria. Hemoglobin (Bld) [Mass/Vol] 11.9 g/dL 13.0-16.5 [facility] Monocytes/100 WBC (Bld) 5.9 % 0-10 [facility] Neutrophils (Bld) [#/Vol] 4.1 10*3/uL 2.0-7.7 [facility] Neutrophils/100 WBC (Bld) 66.4 % 47-70 [facility] Potassium [Moles/Vol] 4.0 mmol/L 3.5-5.1 [facility] Protein [Mass/Vol] 7.5 g/dL 6.4-8.2 [facility] Sodium [Moles/Vol] 142 mmol/L 136-145 [facility] WBC (Bld) [#/Vol] 6.1 10*3/uL 4.4-11.0 [facility] Bilirubin Test strip Ql (U)O rdered By: Cesar Medina on 02-19-2024 Bilirubin Ql (U) Negative Negative [facility] Determination of erythrocyte mean corpuscular volume (MCV)Ordered By: Cesar Medina on 02-19-2024 MCV (RBC) [Entitic vol] 93.7 fL 80-94 [facility] Erythrocyte distribution wid th ratioOrdered By: Cesar Medina on 02-19-2024 Erythrocyte distribution width (RBC) [Ratio] 14.4 % 11.6-14.6 [facility] Erythrocyte distribution wid th standard deviationOrdered By: Cesar Medina on 02-19-2024 Erythrocyte distribution width (RBC) [Entitic vol] 48.8 fL 35.1-43.9 [facility] Hematocrit Auto (Bld) [Volum e fraction]Ordered By: Cesar Medina on 02-19-2024 Hematocrit (Bld) [Volume fraction] 35.9 % 40-54 [facility] Immature granulocytes/100 WB C Auto (Bld)Ordered By: Cesar Medina on 02-19-2024 Immature granulocytes/100 WBC (Bld) 0.200 % 0.0-0.9 [facility] Comment on above: IG% - Immature Granu locytes (promyelocytes, myelocytes and metamyelocytes) > 1% indicates that a LEFT SHIFT is Present. Ketones Test strip Ql (U)Ord ered By: Cesar Medina on 02-19-2024 Ketones Ql (U) Negative Negative [facility] Laboratory - Chemistry and C hemistry - challengeOrdered By: Cesar Medina on 02-19-2024 Albumin/Globulin [Mass ratio] 0.7 {ratio} 0.9-2.4 [facility] ALP [Catalytic activity/Vol] 167 U/L 45-117 [facility] ALT [Catalytic activity/Vol] 15 U/L 16-61 [facility] CO2 [Moles/Vol] 17.0 mmol/L 21.0-32.0 [facility] Globulin (S) [Mass/Vol] 4.5 g/dL 2.2-4.2 [facility] Lipase [Catalytic activity/Vol] 22 U/L 13-75 [facility] Comment on above: Please note:LIPASE r evised reference range effective 23. New Lipase methodology. Expected to produce lower values than the previous assay method. NEW Reference Range: 13 - 75 U/L Natriuretic peptide B (Bld) [Mass/Vol] 271.7 pg/mL 0-100 [facility] Urea nitrogen/Creatinine [Mass ratio] 19.6 mg/mg 10-20 [facility] Laboratory - Hematology and Cell countsOrdered By: Cesar Medina on 02-19-2024 MCH (RBC) [Entitic mass] 31.1 pg 27.0-32.0 [facility] MCHC (RBC) [Mass/Vol] 33.1 g/dL 32-36 [facility] Nucleated RBC/100 WBC (Bld) [Ratio] 0 % 0-5 [facility] Platelet mean volume (Bld) [Entitic vol] 10.6 fL 6.2-12.0 [facility] Platelets (Bld) [#/Vol] 137 10*3/uL 150-450 [facility] Laboratory - Microbiology an d Antimicrobial susceptibilityOrdered By: Cesar Medina on 02-19-2024 SARS-CoV-2 (COVID-19) RNA ELIANE+probe Ql (Unsp spec) [facility] Mucus LM Ql (Urine sed)Order ed By: Cesar Medina on 02-19-2024 Mucus Ql (Urine sed) 0 SEEN /hpf [facility] Nitrite Test strip Ql (U)Ord ered By: Cesar Medina on 02-19-2024 Nitrite Ql (U) Negative Negative [facility] No Panel InformationOrdered By: Cesar Medina on 02-19-2024 Urine RBC 0 SEEN /hpf 0-5 [facility] Estimated Creatinine Clearance Calc 25.73 ml/min [facility] Estimated GFR (MDRD) Amer 32 mL/min >60 [facility] Comment on above: GFR Calc Estimated GFR (MDRD) Non-Af Amer 26 mL/min >60 [facility] Comment on above: Non- GFR Calc Troponin I High Sensitivity 63 pg/mL 3.0-78.0 [facility] Comment on above: Please Note: New Meghana t Units and Gender Specific Reference Ranges. For more information see Policy Stat Procedure [place] High Sensitivity Troponin (TNIH) and attachments. Protein Test strip Ql (U)Ord ered By: Cesar Medina on 02-19-2024 Protein Ql (U) 30 mg/dl Negative [facility] RBC Auto (Bld) [#/Vol]Ordere d By: Cesar Medina on 02-19-2024 RBC (Bld) [#/Vol] 3.83 10*6/uL 4.6-6.2 [facility] Serum or plasma calcium aubree urement (mass/volume)Ordered By: Cesar Medina on 02-19-2024 Calcium [Mass/Vol] 8.7 mg/dL 8.5-10.1 [facility] Serum or plasma creatinine m easurement (mass/volume)Ordered By: Cesar Medina on 02-19-2024 Creatinine [Mass/Vol] 2.50 mg/dL 0.70-1.30 [facility] Comment on above: The validity of the calculated GFR & GFRAA in patients over 70 years has not been determined. Clinical correlation is essential. Serum or plasma urea nitroge n measurement (mass/volume)Ordered By: Cesar Medina on 02-19-2024 Urea nitrogen [Mass/Vol] 49 mg/dL 7-18 [facility] Squamous epithelial cells de tection in urine sediment by light microscopyOrdered By: Cesar Medina on 02-19-2024 Epithelial cells.squamous LM Ql (Urine sed) 0 SEEN /hpf 0-5 [facility] Thin prep Papanicolaou smear with manual screeningOrdered By: Cesar Medina on 02-19-2024 Thin prep Papanicolaou smear with manual screening 3.0 g/dL 3.2-5.0 [facility] Thin prep Papanicolaou smear with manual screening 20 U/L 15-37 [facility] Thin prep Papanicolaou smear with manual screening 8 5-15 [facility] Urine blood detectionOrdered By: Cesar Medina on 02-19-2024 RBC Ql (U) 10 /ul Negative [facility] Urine clarityOrdered By: Jodie Medina on 02-19-2024 Clarity (U) Clear Clear [facility] Urine color determinationOrd ered By: Cesar Medina on 02-19-2024 Color (U) Yellow Yellow [facility] Urine glucose detectionOrder ed By: Cesar Medina on 02-19-2024 Glucose Ql (U) Normal mg/dl Normal [facility] Urine leukocyte esterase det ection by dipstickOrdered By: Cesar Medina on 02-19-2024 Leukocyte esterase Test strip Ql (U) Negative Negative [facility] Urine pHOrdered By: Cesar deras on 02-19-2024 pH (U) 6.0 [pH] 5.0 - 8.0 [facility] Urine sediment bacteria coun t by microscopy (number/high power field)Ordered By: Cesar Medina on 02-19-2024 Bacteria LM.HPF (Urine sed) [#/Area] 0 /[HPF] None Seen [facility] Urine specific gravity measu rementOrdered By: Cesar Medina on 02-19-2024 Specific gravity (U) [Rel density] 1.015 1.002-1.030 [facility] Urine urobilinogen measureme ntOrdered By: Cesar Medina on 02-19-2024 Urobilinogen Ql (U) Normal mg/dl Normal [facility] Basophil percentageOrdered B y: Angélica Palomo on 02-16-2024 Basophil percentage 0 SEEN /hpf 0-5 [facility] Bilirubin Test strip Ql (U)O rdered By: Angélica Palomo on 02-16-2024 Bilirubin Ql (U) Negative Negative [facility] Hyaline casts LM.LPF (Urine sed) [#/Area]Ordered By: Angélica Palomo on 02-16-2024 Hyaline casts (Urine sed) [#/Area] 0 /[LPF] 0-5 [facility] Ketones Test strip Ql (U)Ord ered By: Angélica Palomo on 02-16-2024 Ketones Ql (U) Negative Negative [facility] Mucus LM Ql (Urine sed)Order ed By: Angélica Palomo on 02-16-2024 Mucus Ql (Urine sed) 0 SEEN /hpf [facility] Nitrite Test strip Ql (U)Ord ered By: Angélica Palomo on 02-16-2024 Nitrite Ql (U) Negative Negative [facility] No Panel InformationOrdered By: Angélica Palomo on 02-16-2024 Urine RBC 0 SEEN /hpf 0-5 [facility] Protein Test strip Ql (U)Ord ered By: Angélica Palomo on 02-16-2024 Protein Ql (U) 100 mg/dl Negative [facility] Squamous epithelial cells de tection in urine sediment by light microscopyOrdered By: Angélica Palomo on 02-16-2024 Epithelial cells.squamous LM Ql (Urine sed) 0-5 SEEN /hpf 0-5 [facility] Urine blood detectionOrdered By: Angélica Palomo on 02-16-2024 RBC Ql (U) 10 /ul Negative [facility] Urine clarityOrdered By: Dee Palomo on 02-16-2024 Clarity (U) Clear Clear [facility] Urine coarse granular cast d etectionOrdered By: Angélica Palomo on 02-16-2024 Coarse Granular Casts LM Ql (Urine sed) 0-5 SEEN /lpf 0-5 /lpf [facility] Urine color determinationOrd ered By: Angélica Palomo on 02-16-2024 Color (U) Yellow Yellow [facility] Urine glucose detectionOrder ed By: Angélica Palomo on 02-16-2024 Glucose Ql (U) Normal mg/dl Normal [facility] Urine leukocyte esterase det ection by dipstickOrdered By: Angélica Palomo on 02-16-2024 Leukocyte esterase Test strip Ql (U) Negative Negative [facility] Urine pHOrdered By: Angélica sher on 02-16-2024 pH (U) 6.0 [pH] 5.0 - 8.0 [facility] Urine sediment bacteria coun t by microscopy (number/high power field)Ordered By: Angélica Palomo on 02-16-2024 Bacteria LM.HPF (Urine sed) [#/Area] RARE /hpf None Seen [facility] Urine specific gravity measu rementOrdered By: Angélica Palomo on 02-16-2024 Specific gravity (U) [Rel density] 1.020 1.002-1.030 [facility] Urine urobilinogen measureme ntOrdered By: Angélica Palomo on 02-16-2024 Urobilinogen Ql (U) Normal mg/dl Normal [facility] Absolute lymphocyte countOrd ered By: Angélica Palomo on 02-15-2024 Lymphocytes Auto (Unsp spec) [#/Vol] 1.62 10*3/uL 0.83-4.51 [facility] Absolute lymphocyte countOrd ered By: Pepe Au on 02-15-2024 Lymphocytes Auto (Unsp spec) [#/Vol] 1.93 10*3/uL 0.83-4.51 [facility] Automated lymphocyte count a s percentage of total leukocytesOrdered By: Angélica Palomo on 02-15-2024 Lymphocytes/100 WBC Auto (Unsp spec) 21.2 % - [facility] Automated lymphocyte count a s percentage of total leukocytesOrdered By: Pepe Au on 02-15-2024 Lymphocytes/100 WBC Auto (Unsp spec) 21.1 % [facility] Basophil percentageOrdered B y: Pepe Au on 02-15-2024 Basophils/100 WBC (Bld) 0.3 % 0-1 [facility] Hemoglobin (Bld) [Mass/Vol] 12.9 g/dL 13.0-16.5 [facility] Basophil percentage 3.1 mg/dL 2.5-4.9 [facility] Chloride [Moles/Vol] 115 mmol/L 98-107 [facility] Eosinophils/100 WBC (Bld) 1.2 % 0-5 [facility] Glucose [Mass/Vol] 112 mg/dL 74-106 [facility] Comment on above: Fasting Glucose resu lt from 100 to 125 mg/dL suggests IMPAIRED HOMEOSTASIS per A.D.A. criteria. Monocytes/100 WBC (Bld) 8.2 % 0-10 [facility] Neutrophils (Bld) [#/Vol] 6.3 10*3/uL 2.0-7.7 [facility] Neutrophils/100 WBC (Bld) 68.9 % 47-70 [facility] Potassium [Moles/Vol] 4.2 mmol/L 3.5-5.1 [facility] Sodium [Moles/Vol] 140 mmol/L 136-145 [facility] WBC (Bld) [#/Vol] 9.2 10*3/uL 4.4-11.0 [facility] Basophil percentageOrdered B y: Angélica Palomo on 02-15-2024 Bilirubin [Mass/Vol] 0.40 mg/dL 0.20-1.00 [facility] Comment on above: For patients on eltr ombopag therapy, use of Dimension [place] TBIL is not recommended. Chloride [Moles/Vol] 116 mmol/L 98-107 [facility] Eosinophils/100 WBC (Bld) 2.2 % 0-5 [facility] Glucose [Mass/Vol] 116 mg/dL 74-106 [facility] Comment on above: Fasting Glucose resu lt from 100 to 125 mg/dL suggests IMPAIRED HOMEOSTASIS per A.D.A. criteria. Monocytes/100 WBC (Bld) 8.6 % 0-10 [facility] Neutrophils (Bld) [#/Vol] 5.1 10*3/uL 2.0-7.7 [facility] Neutrophils/100 WBC (Bld) 67.3 % 47-70 [facility] Potassium [Moles/Vol] 4.1 mmol/L 3.5-5.1 [facility] Protein [Mass/Vol] 7.7 g/dL 6.4-8.2 [facility] Sodium [Moles/Vol] 142 mmol/L 136-145 [facility] WBC (Bld) [#/Vol] 7.6 10*3/uL 4.4-11.0 [facility] Determination of erythrocyte mean corpuscular volume (MCV)Ordered By: Angélica Palomo on 02-15-2024 MCV (RBC) [Entitic vol] 97.3 fL 80-94 [facility] Determination of erythrocyte mean corpuscular volume (MCV)Ordered By: Pepe Au on 02-15-2024 MCV (RBC) [Entitic vol] 96.7 fL 80-94 [facility] Erythrocyte distribution wid th ratioOrdered By: Angélica Palomo on 02-15-2024 Erythrocyte distribution width (RBC) [Ratio] 14.0 % 11.6-14.6 [facility] Erythrocyte distribution wid th ratioOrdered By: Pepe Au on 02-15-2024 Erythrocyte distribution width (RBC) [Ratio] 14.1 % 11.6-14.6 [facility] Erythrocyte distribution wid th standard deviationOrdered By: Angélica Palomo on 02-15-2024 Erythrocyte distribution width (RBC) [Entitic vol] 50.0 fL 35.1-43.9 [facility] Erythrocyte distribution wid th standard deviationOrdered By: Pepe Au on 02-15-2024 Erythrocyte distribution width (RBC) [Entitic vol] 50.3 fL 35.1-43.9 [facility] Hematocrit Auto (Bld) [Volum e fraction]Ordered By: Angélica Palomo on 02-15-2024 Hematocrit (Bld) [Volume fraction] 40.3 % 40-54 [facility] Hematocrit Auto (Bld) [Volum e fraction]Ordered By: Pepe Au on 02-15-2024 Hematocrit (Bld) [Volume fraction] 40.8 % 40-54 [facility] Immature granulocytes/100 WB C Auto (Bld)Ordered By: Angélica Palomo on 02-15-2024 Immature granulocytes/100 WBC (Bld) 0.400 % 0.0-0.9 [facility] Comment on above: IG% - Immature Granu locytes (promyelocytes, myelocytes and metamyelocytes) > 1% indicates that a LEFT SHIFT is Present. Immature granulocytes/100 WB C Auto (Bld)Ordered By: Pepe Au on 02-15-2024 Immature granulocytes/100 WBC (Bld) 0.300 % 0.0-0.9 [facility] Comment on above: IG% - Immature Granu locytes (promyelocytes, myelocytes and metamyelocytes) > 1% indicates that a LEFT SHIFT is Present. Iron measurement (mass/mass) Ordered By: Pepe Au on 02-15-2024 Iron (Unsp spec) [Mass/Mass] 31 ug/dL 65-175 [facility] Laboratory - Chemistry and C hemistry - challengeOrdered By: Angélica Palomo on 02-15-2024 Albumin/Globulin [Mass ratio] 0.8 {ratio} 0.9-2.4 [facility] ALP [Catalytic activity/Vol] 123 U/L 45-117 [facility] ALT [Catalytic activity/Vol] 12 U/L 16-61 [facility] Globulin (S) [Mass/Vol] 4.4 g/dL 2.2-4.2 [facility] Lipase [Catalytic activity/Vol] 20 U/L 13-75 [facility] Comment on above: Please note:LIPASE r evised reference range effective 23. New Lipase methodology. Expected to produce lower values than the previous assay method. NEW Reference Range: 13 - 75 U/L Urea nitrogen/Creatinine [Mass ratio] 19.1 mg/mg 10 [facility] Laboratory - Chemistry and C hemistry - challengeOrdered By: Pepe Au on 02-15-2024 CO2 [Moles/Vol] 19.0 mmol/L 21.0-32.0 [facility] Ferritin [Mass/Vol] 141 ng/mL 26-388 [facility] Urea nitrogen/Creatinine [Mass ratio] 20.6 mg/mg 09-16 [facility] Laboratory - Hematology and Cell countsOrdered By: Angélica Palomo on 02-15-2024 MCH (RBC) [Entitic mass] 31.2 pg 27.0-32.0 [facility] MCHC (RBC) [Mass/Vol] 32.0 g/dL 32-36 [facility] Platelet mean volume (Bld) [Entitic vol] 10.7 fL 6.2-12.0 [facility] Platelets (Bld) [#/Vol] 111 10*3/uL 150-450 [facility] Laboratory - Hematology and Cell countsOrdered By: Pepe Au on 02-15-2024 Nucleated RBC/100 WBC (Bld) [Ratio] 0 % 0-5 [facility] MCH (RBC) [Entitic mass] 30.6 pg 27.0-32.0 [facility] MCHC (RBC) [Mass/Vol] 31.6 g/dL 32-36 [facility] Platelet mean volume (Bld) [Entitic vol] 10.0 fL 6.2-12.0 [facility] Platelets (Bld) [#/Vol] 118 10*3/uL 150-450 [facility] No Panel InformationOrdered By: Angélica Palomo on 02-15-2024 Estimated Creatinine Clearance Calc 25.89 ml/min [facility] Estimated GFR (MDRD) Amer 33 mL/min >60 [facility] Comment on above: GFR Calc Estimated GFR (MDRD) Non-Af Amer 27 mL/min >60 [facility] Comment on above: Non- GFR Calc No Panel InformationOrdered By: Pepe Au on 02-15-2024 Estimated GFR (MDRD) Amer 32 mL/min >60 [facility] Comment on above: GFR Calc Estimated GFR (MDRD) Non-Af Amer 26 mL/min >60 [facility] Comment on above: Non- GFR Calc Total Iron Binding Capacity 264 ug/dL 250-450 [facility] RBC Auto (Bld) [#/Vol]Ordere d By: Angélica Palomo on 02-15-2024 RBC (Bld) [#/Vol] 4.14 10*6/uL 4.6-6.2 [facility] RBC Auto (Bld) [#/Vol]Ordere d By: Pepe Au on 02-15-2024 RBC (Bld) [#/Vol] 4.22 10*6/uL 4.6-6.2 [facility] Serum or plasma calcium aubree urement (mass/volume)Ordered By: Angélica Palomo on 02-15-2024 Calcium [Mass/Vol] 9.5 mg/dL 8.5-10.1 [facility] Serum or plasma calcium aubree urement (mass/volume)Ordered By: Pepe Au on 02-15-2024 Calcium [Mass/Vol] 9.4 mg/dL 8.5-10.1 [facility] Serum or plasma creatinine m easurement (mass/volume)Ordered By: Angélica Palomo on 02-15-2024 Creatinine [Mass/Vol] 2.46 mg/dL 0.70-1.30 [facility] Comment on above: The validity of the calculated GFR & GFRAA in patients over 70 years has not been determined. Clinical correlation is essential. Serum or plasma creatinine m easurement (mass/volume)Ordered By: Pepe Au on 02-15-2024 Creatinine [Mass/Vol] 2.53 mg/dL 0.70-1.30 [facility] Comment on above: The validity of the calculated GFR & GFRAA in patients over 70 years has not been determined. Clinical correlation is essential. Serum or plasma iron saturat ion measurement (mass fraction)Ordered By: Pepe Au on 02-15-2024 Iron saturation [Mass fraction] 11.7 % 15.0-55.0 [facility] Serum or plasma urea nitroge n measurement (mass/volume)Ordered By: Angélica Palomo on 02-15-2024 Urea nitrogen [Mass/Vol] 47 mg/dL 06-14 [facility] Serum or plasma urea nitroge n measurement (mass/volume)Ordered By: Pepe Au on 02-15-2024 Urea nitrogen [Mass/Vol] 52 mg/dL 06-14 [facility] Thin prep Papanicolaou smear with manual screeningOrdered By: Angélica Palomo on 02-15-2024 Thin prep Papanicolaou smear with manual screening 3.3 g/dL 3.2-5.0 [facility] Thin prep Papanicolaou smear with manual screening 18 U/L 15-37 [facility] Thin prep Papanicolaou smear with manual screening 7 5-15 [facility] Thin prep Papanicolaou smear with manual screeningOrdered By: Pepe Au on 02-15-2024 Thin prep Papanicolaou smear with manual screening 3.7 g/dL 3.2-5.0 [facility] Absolute lymphocyte countOrd ered By: Pepe Au on 01-18-2024 Lymphocytes Auto (Unsp spec) [#/Vol] 1.86 10*3/uL 0.83-4.51 [facility] Automated lymphocyte count a s percentage of total leukocytesOrdered By: Pepe Au on 01-18-2024 Lymphocytes/100 WBC Auto (Unsp spec) 25.9 % 19-41 [facility] Basophil percentageOrdered B y: Pepe Au on 01-18-2024 Basophil percentage 3.0 mg/dL 2.5-4.9 [facility] Basophils/100 WBC (Bld) 0.6 % 0-1 [facility] Chloride [Moles/Vol] 111 mmol/L 98-107 [facility] Eosinophils/100 WBC (Bld) 4.0 % 0-5 [facility] Glucose [Mass/Vol] 160 mg/dL 74-106 [facility] Comment on above: Fasting Glucose resu lt greater than or equal to 126 mg/dL suggests DIABETES MELLITUS per A.D.A. criteria. Hemoglobin (Bld) [Mass/Vol] 11.7 g/dL 13.0-16.5 [facility] Monocytes/100 WBC (Bld) 7.3 % 0-10 [facility] Neutrophils (Bld) [#/Vol] 4.4 10*3/uL 2.0-7.7 [facility] Neutrophils/100 WBC (Bld) 61.9 % 47-70 [facility] Potassium [Moles/Vol] 4.7 mmol/L 3.5-5.1 [facility] Sodium [Moles/Vol] 139 mmol/L 136-145 [facility] WBC (Bld) [#/Vol] 7.2 10*3/uL 4.4-11.0 [facility] Determination of erythrocyte mean corpuscular volume (MCV)Ordered By: Pepe Au on 01-18-2024 MCV (RBC) [Entitic vol] 97.4 fL 80-94 [facility] Erythrocyte distribution wid th ratioOrdered By: [facility] on 01-18-2024 Erythrocyte distribution width (RBC) [Ratio] 13.7 % 11.6-14.6 [facility] Erythrocyte distribution wid th standard deviationOrdered By: [facility] Au on 01-18-2024 Erythrocyte distribution width (RBC) [Entitic vol] 48.4 fL 35.1-43.9 [facility] Hematocrit Auto (Bld) [Volum e fraction]Ordered By: Pepe Au on 01-18-2024 Hematocrit (Bld) [Volume fraction] 37.2 % 40-54 [facility] Immature granulocytes/100 WB C Auto (Bld)Ordered By: Pepe Au on 01-18-2024 Immature granulocytes/100 WBC (Bld) 0.300 % 0.0-0.9 [facility] Comment on above: IG% - Immature Granu locytes (promyelocytes, myelocytes and metamyelocytes) > 1% indicates that a LEFT SHIFT is Present. Iron measurement (mass/mass) Ordered By: Pepe Au on 01-18-2024 Iron (Unsp spec) [Mass/Mass] 54 ug/dL 65-175 [facility] Laboratory - Chemistry and C hemistry - challengeOrdered By: Pepe Au on 01-18-2024 CO2 [Moles/Vol] 26.0 mmol/L 21.0-32.0 [facility] Ferritin [Mass/Vol] 103 ng/mL 26-388 [facility] Urea nitrogen/Creatinine [Mass ratio] 18.2 mg/mg 10-20 [facility] Laboratory - Hematology and Cell countsOrdered By: Pepe Au on 01-18-2024 MCH (RBC) [Entitic mass] 30.6 pg 27.0-32.0 [facility] MCHC (RBC) [Mass/Vol] 31.5 g/dL 32-36 [facility] Nucleated RBC/100 WBC (Bld) [Ratio] 0 % 0-5 [facility] Platelet mean volume (Bld) [Entitic vol] 10.2 fL 6.2-12.0 [facility] Platelets (Bld) [#/Vol] 131 10*3/uL 150-450 [facility] No Panel InformationOrdered By: Pepe Au on 01-18-2024 Estimated GFR (MDRD) Amer 33 mL/min >60 [facility] Comment on above: GFR Calc Estimated GFR (MDRD) Non-Af Amer 27 mL/min >60 [facility] Comment on above: Non- GFR Calc Parathyroid Hormone (Intact) 20.1 pg/mL 18.4-80.1 [facility] Total Iron Binding Capacity 273 ug/dL 250-450 [facility] RBC Auto (Bld) [#/Vol]Ordere d By: Pepe Au on 01-18-2024 RBC (Bld) [#/Vol] 3.82 10*6/uL 4.6-6.2 [facility] Serum or plasma calcium aubree urement (mass/volume)Ordered By: Pepe Au on 01-18-2024 Calcium [Mass/Vol] 9.8 mg/dL 8.5-10.1 [facility] Serum or plasma creatinine m easurement (mass/volume)Ordered By: Pepe Au on 01-18-2024 Creatinine [Mass/Vol] 2.42 mg/dL 0.70-1.30 [facility] Comment on above: The validity of the calculated GFR & GFRAA in patients over 70 years has not been determined. Clinical correlation is essential. Serum or plasma iron saturat ion measurement (mass fraction)Ordered By: [facility] center[facility]ve Au on 01-18-2024 Iron saturation [Mass fraction] 19.8 % 15.0-55.0 [facility] Serum or plasma urea nitroge n measurement (mass/volume)Ordered By: Pepe Au on 01-18-2024 Urea nitrogen [Mass/Vol] 44 mg/dL 7-18 [facility] Thin prep Papanicolaou smear with manual screeningOrdered By: [facility] Angely on 01-18-2024 Thin prep Papanicolaou smear with manual screening 3.2 g/dL 3.2-5.0 [facility] Absolute lymphocyte countOrd ered By: Pepe Au on 12-21-2023 Lymphocytes Auto (Unsp spec) [#/Vol] 2.33 10*3/uL 0.83-4.51 [facility] Automated lymphocyte count a s percentage of total leukocytesOrdered By: Pepe Au on 12-21-2023 Lymphocytes/100 WBC Auto (Unsp spec) 36.6 % 19-41 [facility] Basophil percentageOrdered B y: Pepe Au on 12-21-2023 Basophil percentage 3.7 mg/dL 2.5-4.9 [facility] Basophils/100 WBC (Bld) 0.3 % 0-1 [facility] Chloride [Moles/Vol] 110 mmol/L 98-107 [facility] Eosinophils/100 WBC (Bld) 2.0 % 0-5 [facility] Glucose [Mass/Vol] 89 mg/dL 74-106 [facility] Hemoglobin (Bld) [Mass/Vol] 11.0 g/dL 13.0-16.5 [facility] Monocytes/100 WBC (Bld) 6.1 % 0-10 [facility] Neutrophils (Bld) [#/Vol] 3.5 10*3/uL 2.0-7.7 [facility] Neutrophils/100 WBC (Bld) 54.8 % 47-70 [facility] Potassium [Moles/Vol] 4.4 mmol/L 3.5-5.1 [facility] Sodium [Moles/Vol] 137 mmol/L 136-145 [facility] WBC (Bld) [#/Vol] 6.4 10*3/uL 4.4-11.0 [facility] Determination of erythrocyte mean corpuscular volume (MCV)Ordered By: Pepe Au on 12-21-2023 MCV (RBC) [Entitic vol] 98.1 fL 80-94 [facility] Erythrocyte distribution wid th ratioOrdered By: Pepe Au on 12-21-2023 Erythrocyte distribution width (RBC) [Ratio] 14.6 % 11.6-14.6 [facility] Erythrocyte distribution wid th standard deviationOrdered By: [facility] centersteve Au on 12-21-2023 Erythrocyte distribution width (RBC) [Entitic vol] 52.2 fL 35.1-43.9 [facility] Hematocrit Auto (Bld) [Volum e fraction]Ordered By: Pepe Au on 12-21-2023 Hematocrit (Bld) [Volume fraction] 35.8 % 40-54 [facility] Immature granulocytes/100 WB C Auto (Bld)Ordered By: Pepe Au on 12-21-2023 Immature granulocytes/100 WBC (Bld) 0.200 % 0.0-0.9 [facility] Comment on above: IG% - Immature Granu locytes (promyelocytes, myelocytes and metamyelocytes) > 1% indicates that a LEFT SHIFT is Present. Iron measurement (mass/mass) Ordered By: Pepe Au on 12-21-2023 Iron (Unsp spec) [Mass/Mass] 70 ug/dL 65-175 [facility] Laboratory - Chemistry and C hemistry - challengeOrdered By: Pepe Au on 12-21-2023 CO2 [Moles/Vol] 24.0 mmol/L 21.0-32.0 [facility] Ferritin [Mass/Vol] 125 ng/mL 26-388 [facility] Urea nitrogen/Creatinine [Mass ratio] 18.7 mg/mg 10-20 [facility] Laboratory - Hematology and Cell countsOrdered By: Pepe Au on 12-21-2023 MCH (RBC) [Entitic mass] 30.1 pg 27.0-32.0 [facility] MCHC (RBC) [Mass/Vol] 30.7 g/dL 32-36 [facility] Nucleated RBC/100 WBC (Bld) [Ratio] 0 % 0-5 [facility] Platelets (Bld) [#/Vol] 122 10*3/uL 150-450 [facility] No Panel InformationOrdered By: Pepe Au on 12-21-2023 Estimated GFR (MDRD) Amer 31 mL/min >60 [facility] Comment on above: GFR Calc Estimated GFR (MDRD) Non-Af Amer 26 mL/min >60 [facility] Comment on above: Non- GFR Calc Total Iron Binding Capacity 251 ug/dL 250-450 [facility] Platelet mean volume Evan-Ec ker (Bld) [Entitic vol]Ordered By: Pepe Au on 12-21-2023 Platelet mean volume (Bld) [Entitic vol] 10.3 fL 6.2-12.0 [facility] RBC Auto (Bld) [#/Vol]Ordere d By: Pepe Au on 12-21-2023 RBC (Bld) [#/Vol] 3.65 10*6/uL 4.6-6.2 [facility] Serum or plasma calcium aubree urement (mass/volume)Ordered By: Pepe Au on 12-21-2023 Calcium [Mass/Vol] 9.8 mg/dL 8.5-10.1 [facility] Serum or plasma creatinine m easurement (mass/volume)Ordered By: Pepe Au on 12-21-2023 Creatinine [Mass/Vol] 2.57 mg/dL 0.70-1.30 [facility] Comment on above: The validity of the calculated GFR & GFRAA in patients over 70 years has not been determined. Clinical correlation is essential. Serum or plasma iron saturat ion measurement (mass fraction)Ordered By: [facility] centersteve Au on 12-21-2023 Iron saturation [Mass fraction] 27.9 % 15.0-55.0 [facility] Serum or plasma urea nitroge n measurement (mass/volume)Ordered By: [facility] Au on 12-21-2023 Urea nitrogen [Mass/Vol] 48 mg/dL 7-18 [facility] Thin prep Papanicolaou smear with manual screeningOrdered By: [facility] on 12-21-2023 Thin prep Papanicolaou smear with manual screening 3.1 g/dL 3.2-5.0 [facility] Absolute lymphocyte countOrd ered By: [facility] on 12-02-2023 Lymphocytes Auto (Unsp spec) [#/Vol] 1.49 10*3/uL 0.83-4.51 [facility] Basophil percentageOrdered B y: [facility] 12-02-[facility]23 Basophil percentage 3.3 mg/dL 2.5-4.9 [facility] Basophils/100 WBC (Bld) 0.3 % 0-1 [facility] Chloride [Moles/Vol] 111 mmol/L 98-107 [facility] Eosinophils/100 WBC (Bld) 0.9 % 0-5 [facility] Glucose [Mass/Vol] 131 mg/dL 74-106 [facility] Comment on above: Fasting Glucose resu lt greater than or equal to 126 mg/dL suggests DIABETES MELLITUS per A.D.A. criteria. Neutrophils (Bld) [#/Vol] 6.6 10*3/uL 2.0-7.7 [facility] Neutrophils/100 WBC (Bld) 75.9 % 47-70 [facility] Potassium [Moles/Vol] 4.7 mmol/L 3.5-5.1 [facility] Sodium [Moles/Vol] 142 mmol/L 136-145 [facility] WBC (Bld) [#/Vol] 8.7 10*3/uL 4.4-11.0 [facility] Blood erythrocytes count (nu mber/volume)Ordered By: Pepe Au on 12-02-2023 RBC (Bld) [#/Vol] 3.48 10*6/uL 4.6-6.2 [facility] Blood hemoglobin measurement (mass/volume)Ordered By: Pepe Au on 12-02-2023 Hemoglobin (Bld) [Mass/Vol] 10.9 g/dL 13.0-16.5 [facility] Blood lymphocytes/100 leukoc ytesOrdered By: Pepe Au on 12-02-2023 Lymphocytes/100 WBC (Bld) 17.1 % 19-41 [facility] Blood monocytes/100 leukocyt esOrdered By: Pepe Au on 12-02-2023 Monocytes/100 WBC (Bld) 5.5 % 0-10 [facility] Blood platelet mean volumeOr dered By: Pepe Au on 12-02-2023 Platelet mean volume (Bld) [Entitic vol] 10.8 fL 6.2-12.0 [facility] Determination of erythrocyte mean corpuscular volume (MCV)Ordered By: Pepe Au on 12-02-2023 MCV (RBC) [Entitic vol] 101.1 fL 80-94 [facility] Hematocrit Auto (Bld) [Volum e fraction]Ordered By: Pepe Au on 12-02-2023 Hematocrit (Bld) [Volume fraction] 35.2 % 40-54 [facility] Iron measurement (mass/mass) Ordered By: Pepe Au on 12-02-2023 Iron (Unsp spec) [Mass/Mass] 70 ug/dL 65-175 [facility] Laboratory - Chemistry and C hemistry - challengeOrdered By: Pepe Au on 12-02-2023 CO2 [Moles/Vol] 26.0 mmol/L 21.0-32.0 [facility] Urea nitrogen/Creatinine [Mass ratio] 17.5 mg/mg 10-20 [facility] Laboratory - Hematology and Cell countsOrdered By: Pepe Au on 12-02-2023 Erythrocyte distribution width (RBC) [Entitic vol] 58.1 fL 35.1-43.9 [facility] Erythrocyte distribution width (RBC) [Ratio] 15.8 % 11.6-14.6 [facility] Immature granulocytes/100 WBC (Bld) 0.300 % 0.0-0.9 [facility] Comment on above: IG% - Immature Granu locytes (promyelocytes, myelocytes and metamyelocytes) > 1% indicates that a LEFT SHIFT is Present. MCH (RBC) [Entitic mass] 31.3 pg 27.0-32.0 [facility] Nucleated RBC/100 WBC (Bld) [Ratio] 0 % 0-5 [facility] MCHC Auto (RBC) [Mass/Vol]Or dered By: Pepe Au on 12-02-2023 MCHC (RBC) [Mass/Vol] 31.0 g/dL 32-36 [facility] No Panel InformationOrdered By: Pepe Au on 12-02-2023 Estimated GFR (MDRD) Amer 33 mL/min >60 [facility] Comment on above: GFR Calc Estimated GFR (MDRD) Non-Af Amer 27 mL/min >60 [facility] Comment on above: Non- GFR Calc Parathyroid Hormone (Intact) 26.3 pg/mL 18.4-80.1 [facility] Total Iron Binding Capacity 233 ug/dL 250-450 [facility] Platelets bldOrdered By: Zandra Au on 12-02-2023 Platelets (Bld) [#/Vol] 162 10*3/uL 150-450 [facility] Serum or plasma albumin aubree urement (mass/volume)Ordered By: Pepe Au on 12-02-2023 Albumin [Mass/Vol] 3.1 g/dL 3.2-5.0 [facility] Serum or plasma calcium aubree urement (mass/volume)Ordered By: Pepe Au on 12-02-2023 Calcium [Mass/Vol] 9.0 mg/dL 8.5-10.1 [facility] Serum or plasma creatinine m easurement (mass/volume)Ordered By: Pepe Au on 12-02-2023 Creatinine [Mass/Vol] 2.46 mg/dL 0.70-1.30 [facility] Comment on above: The validity of the calculated GFR & GFRAA in patients over 70 years has not been determined. Clinical correlation is essential. Serum or plasma ferritin laurie surement (mass/volume)Ordered By: Pepe Au on 12-02-2023 Ferritin [Mass/Vol] 118 ng/mL 26-388 [facility] Serum or plasma urea nitroge n measurement (mass/volume)Ordered By: Pepe Au on 12-02-2023 Urea nitrogen [Mass/Vol] 43 mg/dL 7-18 [facility] Serum or plasma uric acid me asurement (mass/volume)Ordered By: Pepe Au on 12-02-2023 Urate [Mass/Vol] 5.5 mg/dL 3.5-7.2 [facility] Comment on above: The drugs N-Acetylcy steine and Metamizole may falsely depress this assay. Absolute lymphocyte countOrd ered By: Pepe Au on 11-23-2023 Lymphocytes Auto (Unsp spec) [#/Vol] 1.50 10*3/uL 0.83-4.51 [facility] Basophil percentageOrdered B y: Pepe Au on 11-23-2023 Basophil percentage 195 mg/dL 74-106 [facility] Basophil percentage 3.1 mg/dL 2.5-4.9 [facility] Basophil percentage 139 mmol/L 136-145 [facility] Basophil percentage 4.4 mmol/L 3.5-5.1 [facility] Basophil percentage 110 mmol/L 98-107 [facility] Basophils (Bld) [#/Vol] 7.4 10*3/uL 4.4-11.0 [facility] Basophils (Bld) [#/Vol] 5.1 10*3/uL 2.0-7.7 [facility] Basophils/100 WBC (Bld) 68.1 % 47-70 [facility] Basophils/100 WBC (Bld) 4.0 % 0-5 [facility] Basophils/100 WBC (Bld) 0.5 % 0-1 [facility] Chloride [Moles/Vol] 110 mmol/L 98-107 [facility] Eosinophils/100 WBC (Bld) 4.0 % 0-5 [facility] Glucose [Mass/Vol] 195 mg/dL 74-106 [facility] Comment on above: Fasting Glucose resu lt greater than or equal to 126 mg/dL suggests DIABETES MELLITUS per A.D.A. criteria. Neutrophils (Bld) [#/Vol] 5.1 10*3/uL 2.0-7.7 [facility] Neutrophils/100 WBC (Bld) 68.1 % 47-70 [facility] Potassium [Moles/Vol] 4.4 mmol/L 3.5-5.1 [facility] Sodium [Moles/Vol] 139 mmol/L 136-145 [facility] WBC (Bld) [#/Vol] 7.4 10*3/uL 4.4-11.0 [facility] Blood erythrocytes count (nu mber/volume)Ordered By: Pepe Au on 11-23-2023 RBC (Bld) [#/Vol] 3.23 10*6/uL 4.6-6.2 [facility] Blood hemoglobin measurement (mass/volume)Ordered By: Pepe Au on 11-23-2023 Hemoglobin (Bld) [Mass/Vol] 10.2 g/dL 13.0-16.5 [facility] Blood lymphocytes/100 leukoc ytesOrdered By: Pepe Au on 11-23-2023 Lymphocytes/100 WBC (Bld) 20.2 % 19-41 [facility] Blood monocytes/100 leukocyt esOrdered By: Pepe Au on 11-23-2023 Monocytes/100 WBC (Bld) 6.7 % 0-10 [facility] Blood platelet mean volumeOr dered By: Pepe Au on 11-23-2023 Platelet mean volume (Bld) [Entitic vol] 10.2 fL 6.2-12.0 [facility] Determination of erythrocyte mean corpuscular volume (MCV)Ordered By: Pepe Au on 11-23-2023 MCV (RBC) [Entitic vol] 98.5 fL 80-94 [facility] Hematocrit Auto (Bld) [Volum e fraction]Ordered By: Pepe Au on 11-23-2023 Hematocrit (Bld) [Volume fraction] 31.8 % 40-54 [facility] Iron measurement (mass/mass) Ordered By: Pepe Au on 11-23-2023 Iron (Unsp spec) [Mass/Mass] 57 ug/dL 65-175 [facility] Laboratory - Chemistry and C hemistry - challengeOrdered By: Pepe Au on 11-23-2023 CO2 [Moles/Vol] 26.0 mmol/L 21.0-32.0 [facility] Urea nitrogen/Creatinine [Mass ratio] 26.6 mg/mg 10-20 [facility] Laboratory - Hematology and Cell countsOrdered By: Pepe Au on 11-23-2023 Erythrocyte distribution width (RBC) [Entitic vol] 55.5 fL 35.1-43.9 [facility] Erythrocyte distribution width (RBC) [Ratio] 15.7 % 11.6-14.6 [facility] Immature granulocytes/100 WBC (Bld) 0.500 % 0.0-0.9 [facility] Comment on above: IG% - Immature Granu locytes (promyelocytes, myelocytes and metamyelocytes) > 1% indicates that a LEFT SHIFT is Present. MCH (RBC) [Entitic mass] 31.6 pg 27.0-32.0 [facility] Nucleated RBC/100 WBC (Bld) [Ratio] 0 % 0-5 [facility] MCHC Auto (RBC) [Mass/Vol]Or dered By: Pepe Au on 11-23-2023 MCHC (RBC) [Mass/Vol] 32.1 g/dL 32-36 [facility] No Panel InformationOrdered By: Pepe Au on 11-23-2023 Estimated GFR (MDRD) Amer 33 mL/min >60 [facility] Comment on above: GFR Calc Estimated GFR (MDRD) Non-Af Amer 27 mL/min >60 [facility] Comment on above: Non- GFR Calc Total Iron Binding Capacity 223 ug/dL 250-450 [facility] 31.6 pg 27.0-32.0 [facility] 15.7 % 11.6-14.6 [facility] 55.5 fl 35.1-43.9 [facility] 0.500 % 0.0-0.9 [facility] 0 % 0-5 [facility] 27 mL/min >60 [facility] 33 mL/min >60 [facility] 26.6 RATIO 10-20 [facility] 26.0 mmol/L 21.0-32.0 [facility] 223 ug/dL 250-450 [facility] Platelets bldOrdered By: Zandra Au on 11-23-2023 Platelets (Bld) [#/Vol] 134 10*3/uL 150-450 [facility] Serum or plasma albumin aubree urement (mass/volume)Ordered By: Pepe Au on 11-23-2023 Albumin [Mass/Vol] 2.9 g/dL 3.2-5.0 [facility] Serum or plasma calcium aubree urement (mass/volume)Ordered By: Pepe Au on 11-23-2023 Calcium [Mass/Vol] 9.8 mg/dL 8.5-10.1 [facility] Serum or plasma creatinine m easurement (mass/volume)Ordered By: Pepe Au on 11-23-2023 Creatinine [Mass/Vol] 2.44 mg/dL 0.70-1.30 [facility] Comment on above: The validity of the calculated GFR & GFRAA in patients over 70 years has not been determined. Clinical correlation is essential. Serum or plasma ferritin laurie surement (mass/volume)Ordered By: Pepe Au on 11-23-2023 Ferritin [Mass/Vol] 208 ng/mL 26-388 [facility] Serum or plasma iron saturat ion measurement (mass fraction)Ordered By: Pepe Au on 11-23-2023 Iron saturation [Mass fraction] 25.6 % 15.0-55.0 [facility] Serum or plasma urea nitroge n measurement (mass/volume)Ordered By: Pepe Au on 11-23-2023 Urea nitrogen [Mass/Vol] 65 mg/dL 7-18 [facility] Absolute lymphocyte countOrd ered By: Pepe Au on 10-26-2023 Lymphocytes Auto (Unsp spec) [#/Vol] 1.33 10*3/uL 0.83-4.51 [facility] Basophil percentageOrdered B y: Pepe Au on 10-26-2023 Basophil percentage 176 mg/dL 74-106 [facility] Basophil percentage 2.9 mg/dL 2.5-4.9 [facility] Basophil percentage 141 mmol/L 136-145 [facility] Basophil percentage 4.5 mmol/L 3.5-5.1 [facility] Basophil percentage 109 mmol/L 98-107 [facility] Basophils (Bld) [#/Vol] 5.9 10*3/uL 4.4-11.0 [facility] Basophils (Bld) [#/Vol] 3.7 10*3/uL 2.0-7.7 [facility] Basophils/100 WBC (Bld) 62.8 % 47-70 [facility] Basophils/100 WBC (Bld) 4.8 % 0-5 [facility] Basophils/100 WBC (Bld) 0.7 % 0-1 [facility] Chloride [Moles/Vol] 109 mmol/L 98-107 [facility] Eosinophils/100 WBC (Bld) 4.8 % 0-5 [facility] Glucose [Mass/Vol] 176 mg/dL 74-106 [facility] Comment on above: Fasting Glucose resu lt greater than or equal to 126 mg/dL suggests DIABETES MELLITUS per A.D.A. criteria. Neutrophils (Bld) [#/Vol] 3.7 10*3/uL 2.0-7.7 [facility] Neutrophils/100 WBC (Bld) 62.8 % 47-70 [facility] Potassium [Moles/Vol] 4.5 mmol/L 3.5-5.1 [facility] Sodium [Moles/Vol] 141 mmol/L 136-145 [facility] WBC (Bld) [#/Vol] 5.9 10*3/uL 4.4-11.0 [facility] Blood erythrocytes count (nu mber/volume)Ordered By: Pepe Au on 10-26-2023 RBC (Bld) [#/Vol] 3.85 10*6/uL 4.6-6.2 [facility] Blood hemoglobin measurement (mass/volume)Ordered By: Pepe Au on 10-26-2023 Hemoglobin (Bld) [Mass/Vol] 11.8 g/dL 13.0-16.5 [facility] Blood lymphocytes/100 leukoc ytesOrdered By: Pepe Au on 10-26-2023 Lymphocytes/100 WBC (Bld) 22.7 % 19-41 [facility] Blood monocytes/100 leukocyt esOrdered By: [facility] on 10-26-2023 Monocytes/100 WBC (Bld) 8.7 % 0-10 [facility] Blood platelet mean volumeOr dered By: Pepe Au on 10-26-2023 Platelet mean volume (Bld) [Entitic vol] 10.3 fL 6.2-12.0 [facility] Determination of erythrocyte mean corpuscular volume (MCV)Ordered By: [facility]ve Au on 10-26-2023 MCV (RBC) [Entitic vol] 98.4 fL 80-94 [facility] Hematocrit Auto (Bld) [Volum e fraction]Ordered By: [facility] on 10-26-2023 Hematocrit (Bld) [Volume fraction] 37.9 % 40-54 [facility] Iron measurement (mass/mass) Ordered By: Pepe Au on 10-26-2023 Iron (Unsp spec) [Mass/Mass] 41 ug/dL 65-175 [facility] Laboratory - Chemistry and C hemistry - challengeOrdered By: Pepe Au on 10-26-2023 CO2 [Moles/Vol] 24.0 mmol/L 21.0-32.0 [facility] Urea nitrogen/Creatinine [Mass ratio] 23.1 mg/mg 10-20 [facility] Laboratory - Hematology and Cell countsOrdered By: Pepe Au on 10-26-2023 Erythrocyte distribution width (RBC) [Entitic vol] 51.5 fL 35.1-43.9 [facility] Erythrocyte distribution width (RBC) [Ratio] 14.3 % 11.6-14.6 [facility] Immature granulocytes/100 WBC (Bld) 0.300 % 0.0-0.9 [facility] Comment on above: IG% - Immature Granu locytes (promyelocytes, myelocytes and metamyelocytes) > 1% indicates that a LEFT SHIFT is Present. MCH (RBC) [Entitic mass] 30.6 pg 27.0-32.0 [facility] Nucleated RBC/100 WBC (Bld) [Ratio] 0 % 0-5 [facility] MCHC Auto (RBC) [Mass/Vol]Or dered By: Pepe Au on 10-26-2023 MCHC (RBC) [Mass/Vol] 31.1 g/dL 32-36 [facility] No Panel InformationOrdered By: Pepe Au on 10-26-2023 Estimated GFR (MDRD) Amer 34 mL/min >60 [facility] Comment on above: GFR Calc Estimated GFR (MDRD) Non-Af Amer 28 mL/min >60 [facility] Comment on above: Non- GFR Calc Total Iron Binding Capacity 243 ug/dL 250-450 [facility] 30.6 pg 27.0-32.0 [facility] 14.3 % 11.6-14.6 [facility] 51.5 fl 35.1-43.9 [facility] 0.300 % 0.0-0.9 [facility] 0 % 0-5 [facility] 28 mL/min >60 [facility] 34 mL/min >60 [facility] 23.1 RATIO 10-20 [facility] 24.0 mmol/L 21.0-32.0 [facility] 243 ug/dL 250-450 [facility] Platelets bldOrdered By: Zandra Au on 10-26-2023 Platelets (Bld) [#/Vol] 162 10*3/uL 150-450 [facility] Serum or plasma albumin aubree urement (mass/volume)Ordered By: Pepe Au on 10-26-2023 Albumin [Mass/Vol] 3.2 g/dL 3.2-5.0 [facility] Serum or plasma calcium aubree urement (mass/volume)Ordered By: Pepe Au on 10-26-2023 Calcium [Mass/Vol] 9.3 mg/dL 8.5-10.1 [facility] Serum or plasma creatinine m easurement (mass/volume)Ordered By: Pepe Au on 10-26-2023 Creatinine [Mass/Vol] 2.38 mg/dL 0.70-1.30 [facility] Comment on above: The validity of the calculated GFR & GFRAA in patients over 70 years has not been determined. Clinical correlation is essential. Serum or plasma ferritin laurie surement (mass/volume)Ordered By: Pepe Au on 10-26-2023 Ferritin [Mass/Vol] 177 ng/mL 26-388 [facility] Serum or plasma iron saturat ion measurement (mass fraction)Ordered By: [facility] Angely on 10-26-2023 Iron saturation [Mass fraction] 16.9 % 15.0-55.0 [facility] Serum or plasma urea nitroge n measurement (mass/volume)Ordered By: Pepe Au on 10-26-2023 Urea nitrogen [Mass/Vol] 55 mg/dL 7-18 [facility] Absolute lymphocyte countOrd ered By: [facility] center[facility]ve Au on 09-28-2023 Lymphocytes Auto (Unsp spec) [#/Vol] 1.28 10*3/uL 0.83-4.51 [facility] Basophil percentageOrdered B y: [facility] Au on 09-28-2023 Basophil percentage 113 mg/dL 74-106 [facility] Basophil percentage 3.5 mg/dL 2.5-4.9 [facility] Basophil percentage 141 mmol/L 136-145 [facility] Basophil percentage 4.7 mmol/L 3.5-5.1 [facility] Basophil percentage 110 mmol/L 98-107 [facility] Basophils (Bld) [#/Vol] 7.2 10*3/uL 4.4-11.0 [facility] Basophils (Bld) [#/Vol] 5.3 10*3/uL 2.0-7.7 [facility] Basophils/100 WBC (Bld) 73.9 % 47-70 [facility] Basophils/100 WBC (Bld) 2.1 % 0-5 [facility] Basophils/100 WBC (Bld) 0.4 % 0-1 [facility] Chloride [Moles/Vol] 110 mmol/L 98-107 [facility] Eosinophils/100 WBC (Bld) 2.1 % 0-5 [facility] Glucose [Mass/Vol] 113 mg/dL 74-106 [facility] Comment on above: Fasting Glucose resu lt from 100 to 125 mg/dL suggests IMPAIRED HOMEOSTASIS per A.D.A. criteria. Neutrophils (Bld) [#/Vol] 5.3 10*3/uL 2.0-7.7 [facility] Neutrophils/100 WBC (Bld) 73.9 % 47-70 [facility] Potassium [Moles/Vol] 4.7 mmol/L 3.5-5.1 [facility] Sodium [Moles/Vol] 141 mmol/L 136-145 [facility] WBC (Bld) [#/Vol] 7.2 10*3/uL 4.4-11.0 [facility] Blood erythrocytes count (nu mber/volume)Ordered By: Pepe Au on 09-28-2023 RBC (Bld) [#/Vol] 3.28 10*6/uL 4.6-6.2 [facility] Blood hemoglobin measurement (mass/volume)Ordered By: Pepe Au on 09-28-2023 Hemoglobin (Bld) [Mass/Vol] 10.2 g/dL 13.0-16.5 [facility] Blood lymphocytes/100 leukoc ytesOrdered By: Pepe Au on 09-28-2023 Lymphocytes/100 WBC (Bld) 17.9 % 19-41 [facility] Blood monocytes/100 leukocyt esOrdered By: Pepe Au on 09-28-2023 Monocytes/100 WBC (Bld) 5.4 % 0-10 [facility] Blood platelet mean volumeOr dered By: Pepe Au on 09-28-2023 Platelet mean volume (Bld) [Entitic vol] 10.7 fL 6.2-12.0 [facility] Determination of erythrocyte mean corpuscular volume (MCV)Ordered By: Pepe Au on 09-28-2023 MCV (RBC) [Entitic vol] 100.9 fL 80-94 [facility] Hematocrit Auto (Bld) [Volum e fraction]Ordered By: Pepe Au on 09-28-2023 Hematocrit (Bld) [Volume fraction] 33.1 % 40-54 [facility] Iron measurement (mass/mass) Ordered By: Pepe Au on 09-28-2023 Iron (Unsp spec) [Mass/Mass] 49 ug/dL 65-175 [facility] Laboratory - Chemistry and C hemistry - challengeOrdered By: Pepe Au on 09-28-2023 CO2 [Moles/Vol] 27.0 mmol/L 21.0-32.0 [facility] Urea nitrogen/Creatinine [Mass ratio] 24.4 mg/mg 10-20 [facility] Laboratory - Hematology and Cell countsOrdered By: Pepe Au on 09-28-2023 Erythrocyte distribution width (RBC) [Entitic vol] 55.8 fL 35.1-43.9 [facility] Erythrocyte distribution width (RBC) [Ratio] 15.2 % 11.6-14.6 [facility] Immature granulocytes/100 WBC (Bld) 0.300 % 0.0-0.9 [facility] Comment on above: IG% - Immature Granu locytes (promyelocytes, myelocytes and metamyelocytes) > 1% indicates that a LEFT SHIFT is Present. MCH (RBC) [Entitic mass] 31.1 pg 27.0-32.0 [facility] Nucleated RBC/100 WBC (Bld) [Ratio] 0 % 0-5 [facility] MCHC Auto (RBC) [Mass/Vol]Or dered By: Pepe Au on 09-28-2023 MCHC (RBC) [Mass/Vol] 30.8 g/dL 32-36 [facility] No Panel InformationOrdered By: Pepe Au on 09-28-2023 Estimated GFR (MDRD) Amer 35 mL/min >60 [facility] Comment on above: GFR Calc Estimated GFR (MDRD) Non-Af Amer 29 mL/min >60 [facility] Comment on above: Non- GFR Calc Parathyroid Hormone (Intact) 33.4 pg/mL 18.4-80.1 [facility] Total Iron Binding Capacity 257 ug/dL 250-450 [facility] 31.1 pg 27.0-32.0 [facility] 15.2 % 11.6-14.6 [facility] 55.8 fl 35.1-43.9 [facility] 0.300 % 0.0-0.9 [facility] 0 % 0-5 [facility] 29 mL/min >60 [facility] 35 mL/min >60 [facility] 24.4 RATIO 10-20 [facility] 27.0 mmol/L 21.0-32.0 [facility] 257 ug/dL 250-450 [facility] 33.4 pg/mL 18.4-80.1 [facility] Platelets bldOrdered By: Zandra Au on 09-28-2023 Platelets (Bld) [#/Vol] 147 10*3/uL 150-450 [facility] Serum or plasma albumin aubree urement (mass/volume)Ordered By: Pepe Au on 09-28-2023 Albumin [Mass/Vol] 3.1 g/dL 3.2-5.0 [facility] Serum or plasma calcium aubree urement (mass/volume)Ordered By: Pepe Au on 09-28-2023 Calcium [Mass/Vol] 9.3 mg/dL 8.5-10.1 [facility] Serum or plasma creatinine m easurement (mass/volume)Ordered By: Pepe Au on 09-28-2023 Creatinine [Mass/Vol] 2.34 mg/dL 0.70-1.30 [facility] Comment on above: The validity of the calculated GFR & GFRAA in patients over 70 years has not been determined. Clinical correlation is essential. Serum or plasma ferritin laurie surement (mass/volume)Ordered By: Pepe Au on 09-28-2023 Ferritin [Mass/Vol] 175 ng/mL 26-388 [facility] Serum or plasma iron saturat ion measurement (mass fraction)Ordered By: Pepe Au on 09-28-2023 Iron saturation [Mass fraction] 19.1 % 15.0-55.0 [facility] Serum or plasma urea nitroge n measurement (mass/volume)Ordered By: Pepe Au on 09-28-2023 Urea nitrogen [Mass/Vol] 57 mg/dL 7-18 [facility] Absolute lymphocyte countOrd ered By: Eladio Lucas on 09-22-2023 Lymphocytes Auto (Unsp spec) [#/Vol] 1.44 10*3/uL 0.83-4.51 [facility] Basophil percentageOrdered B y: Eladio Lucas on 09-22-2023 Basophil percentage 129 mg/dL 74-106 [facility] Basophil percentage 137 mmol/L 136-145 [facility] Basophil percentage 4.4 mmol/L 3.5-5.1 [facility] Basophil percentage 105 mmol/L 98-107 [facility] Basophils (Bld) [#/Vol] 7.7 10*3/uL 4.4-11.0 [facility] Basophils (Bld) [#/Vol] 5.3 10*3/uL 2.0-7.7 [facility] Basophils/100 WBC (Bld) 68.7 % 47-70 [facility] Basophils/100 WBC (Bld) 3.7 % 0-5 [facility] Basophils/100 WBC (Bld) 0.4 % 0-1 [facility] Chloride [Moles/Vol] 105 mmol/L 98-107 [facility] Eosinophils/100 WBC (Bld) 3.7 % 0-5 [facility] Glucose [Mass/Vol] 129 mg/dL 74-106 [facility] Comment on above: Fasting Glucose resu lt greater than or equal to 126 mg/dL suggests DIABETES MELLITUS per A.D.A. criteria. Neutrophils (Bld) [#/Vol] 5.3 10*3/uL 2.0-7.7 [facility] Neutrophils/100 WBC (Bld) 68.7 % 47-70 [facility] Potassium [Moles/Vol] 4.4 mmol/L 3.5-5.1 [facility] Sodium [Moles/Vol] 137 mmol/L 136-145 [facility] WBC (Bld) [#/Vol] 7.7 10*3/uL 4.4-11.0 [facility] Blood erythrocytes count (nu mber/volume)Ordered By: Eladio Lucas on 09-22-2023 RBC (Bld) [#/Vol] 3.03 10*6/uL 4.6-6.2 [facility] Blood hemoglobin measurement (mass/volume)Ordered By: Eladio Lucas on 09-22-2023 Hemoglobin (Bld) [Mass/Vol] 9.5 g/dL 13.0-16.5 [facility] Blood lymphocytes/100 leukoc ytesOrdered By: Eladio Lucas on 09-22-2023 Lymphocytes/100 WBC (Bld) 18.8 % 19-41 [facility] Blood monocytes/100 leukocyt esOrdered By: Eladio Lucas on 09-22-2023 Monocytes/100 WBC (Bld) 8.1 % 0-10 [facility] Blood platelet mean volumeOr dered By: Eladio Lucas on 09-22-2023 Platelet mean volume (Bld) [Entitic vol] 11.5 fL 6.2-12.0 [facility] Determination of erythrocyte mean corpuscular volume (MCV)Ordered By: Eladio Lucas on 09-22-2023 MCV (RBC) [Entitic vol] 100.0 fL 80-94 [facility] Glucose Glucometer (BldC) [M ass/Vol]Ordered By: Eladio Lucas on 09-22-2023 Glucose [Mass/Vol] 182 mg/dL 74-106 [facility] Comment on above: MANAGEMENT OF PATIEN T CARE PER NURSING PROTOCOL Glucose [Mass/Vol] 197 mg/dL 74-106 [facility] Hematocrit Auto (Bld) [Volum e fraction]Ordered By: Eladio Lucas on 09-22-2023 Hematocrit (Bld) [Volume fraction] 30.3 % 40-54 [facility] Laboratory - Chemistry and C hemistry - challengeOrdered By: Eladio Lucas on 09-22-2023 CO2 [Moles/Vol] 27.0 mmol/L 21.0-32.0 [facility] Urea nitrogen/Creatinine [Mass ratio] 26.5 mg/mg 10-20 [facility] Laboratory - Hematology and Cell countsOrdered By: Eladio Lucas on 09-22-2023 Erythrocyte distribution width (RBC) [Entitic vol] 57.0 fL 35.1-43.9 [facility] Erythrocyte distribution width (RBC) [Ratio] 15.6 % 11.6-14.6 [facility] Immature granulocytes/100 WBC (Bld) 0.300 % 0.0-0.9 [facility] Comment on above: IG% - Immature Granu locytes (promyelocytes, myelocytes and metamyelocytes) > 1% indicates that a LEFT SHIFT is Present. MCH (RBC) [Entitic mass] 31.4 pg 27.0-32.0 [facility] Nucleated RBC/100 WBC (Bld) [Ratio] 0 % 0-5 [facility] MCHC Auto (RBC) [Mass/Vol]Or dered By: Eladio Lucas on 09-22-2023 MCHC (RBC) [Mass/Vol] 31.4 g/dL 32-36 [facility] No Panel InformationOrdered By: Eladio Lucas on 09-22-2023 Estimated Creatinine Clearance Calc 18.02 ml/min [facility] Estimated GFR (MDRD) Amer 29 mL/min >60 [facility] Comment on above: GFR Calc Estimated GFR (MDRD) Non-Af Amer 24 mL/min >60 [facility] Comment on above: Non- GFR Calc 31.4 pg 27.0-32.0 [facility] 15.6 % 11.6-14.6 [facility] 57.0 fl 35.1-43.9 [facility] 0.300 % 0.0-0.9 [facility] 0 % 0-5 [facility] 24 mL/min >60 [facility] 29 mL/min >60 [facility] 18.02 ml/min [facility] 26.5 RATIO 10-20 [facility] 27.0 mmol/L 21.0-32.0 [facility] Platelets bldOrdered By: Kirby Lucas on 09-22-2023 Platelets (Bld) [#/Vol] 132 10*3/uL 150-450 [facility] Serum or plasma calcium aubree urement (mass/volume)Ordered By: Eladio Lucas on 09-22-2023 Calcium [Mass/Vol] 9.0 mg/dL 8.5-10.1 [facility] Serum or plasma creatinine m easurement (mass/volume)Ordered By: Eladio Lucas on 09-22-2023 Creatinine [Mass/Vol] 2.75 mg/dL 0.70-1.30 [facility] Comment on above: The validity of the calculated GFR & GFRAA in patients over 70 years has not been determined. Clinical correlation is essential. Serum or plasma urea nitroge n measurement (mass/volume)Ordered By: Eladio Lucas on 09-22-2023 Urea nitrogen [Mass/Vol] 73 mg/dL 7-18 [facility] Thin prep Papanicolaou smear with manual screeningOrdered By: Eladio Lucas on 09-22-2023 Thin prep Papanicolaou smear with manual screening 5 5-15 [facility] Basophil percentageOrdered B y: Patricia Alcantara on 09-17-2023 Basophil percentage 7.1 g/dL 6.4-8.2 [facility] Basophil percentage 0.70 mg/dL 0.20-1.00 [facility] Bilirubin [Mass/Vol] 0.70 mg/dL 0.20-1.00 [facility] Comment on above: For patients on eltr ombopag therapy, use of Dimension [place] TBIL is not recommended. Protein [Mass/Vol] 7.1 g/dL 6.4-8.2 [facility] Laboratory - Chemistry and C hemistry - challengeOrdered By: [facility] on 09-17-2023 ALP [Catalytic activity/Vol] 173 U/L [facility] ALT [Catalytic activity/Vol] 17 U/L [facility] Globulin (S) [Mass/Vol] 4.3 g/dL 2.2-4.2 [facility] No Panel InformationOrdered By: [facility] on 09-17-2023 4.3 g/dL 2.2-4.2 [facility] 173 U/L [facility] 17 U/L [facility] Serum or plasma albumin aubree urement (mass/volume)Ordered By: Patricia Quinton on 09-17-2023 Albumin [Mass/Vol] 2.8 g/dL 3.2-5.0 [facility] Serum or plasma albumin/glob ulin mass ratioOrdered By: Patricia Quinton on 09-17-2023 Albumin/Globulin [Mass ratio] 0.7 {ratio} 0.9-2.4 [facility] Thin prep Papanicolaou smear with manual screeningOrdered By: Patricia Alcantara on 09-17-2023 Thin prep Papanicolaou smear with manual screening 13 U/L 15-37 [facility] [facility] Absolute lymphocyte countOrd ered By: Cesar Medina on 09-16-2023 Lymphocytes Auto (Unsp spec) [#/Vol] 1.34 10*3/uL 0.83-4.51 [facility] Basophil percentageOrdered B y: Cesar Medina on 09-16-2023 Basophil percentage 131 mg/dL 74-106 [facility] Basophil percentage 141 mmol/L 136-145 [facility] Basophil percentage 4.8 mmol/L 3.5-5.1 [facility] Basophil percentage 112 mmol/L 98-107 [facility] Basophils (Bld) [#/Vol] 7.1 10*3/uL 4.4-11.0 [facility] Basophils (Bld) [#/Vol] 4.8 10*3/uL 2.0-7.7 [facility] Basophils/100 WBC (Bld) 68.1 % 47-70 [facility] Basophils/100 WBC (Bld) 3.7 % 0-5 [facility] Basophils/100 WBC (Bld) 0.4 % 0-1 [facility] Blood erythrocytes count (nu mber/volume)Ordered By: Cesar Medina on 09-16-2023 RBC (Bld) [#/Vol] 3.16 10*6/uL 4.6-6.2 [facility] Blood hemoglobin measurement (mass/volume)Ordered By: Cesar Medina on 09-16-2023 Hemoglobin (Bld) [Mass/Vol] 10.1 g/dL 13.0-16.5 [facility] Blood lymphocytes/100 leukoc ytesOrdered By: Cesar Medina on 09-16-2023 Lymphocytes/100 WBC (Bld) 19.0 % 19-41 [facility] Blood monocytes/100 leukocyt esOrdered By: Cesar Medina on 09-16-2023 Monocytes/100 WBC (Bld) 8.1 % 0-10 [facility] Blood platelet mean volumeOr dered By: Cesar Medina on 09-16-2023 Platelet mean volume (Bld) [Entitic vol] 11.2 fL 6.2-12.0 [facility] Determination of erythrocyte mean corpuscular volume (MCV)Ordered By: Cesar Medina on 09-16-2023 MCV (RBC) [Entitic vol] 101.9 fL 80-94 [facility] Hematocrit Auto (Bld) [Volum e fraction]Ordered By: Cesar Medina on 09-16-2023 Hematocrit (Bld) [Volume fraction] 32.2 % 40-54 [facility] Laboratory - Chemistry and C hemistry - challengeOrdered By: Patricia Alcantara on 09-16-2023 Magnesium [Mass/Vol] 2.0 mg/dL 1.6-2.6 [facility] Laboratory - Chemistry and C hemistry - challengeOrdered By: Cesar Medina on 09-16-2023 Natriuretic peptide B (Bld) [Mass/Vol] 179.0 pg/mL 0-100 [facility] Laboratory - Microbiology an d Antimicrobial susceptibilityOrdered By: Patricia Alcantara on 09-16-2023 SARS-CoV-2 (COVID-19) RNA ELIANE+probe Ql (Unsp spec) [facility] MCHC Auto (RBC) [Mass/Vol]Or dered By: Cesar Medina on 09-16-2023 MCHC (RBC) [Mass/Vol] 31.4 g/dL 32-36 [facility] No Panel InformationOrdered By: Patricia Alcantara on 09-16-2023 Troponin I High Sensitivity 45 pg/mL 3.0-78.0 [facility] Comment on above: Please Note: New Meghana t Units and Gender Specific Reference Ranges. For more information see Policy Stat Procedure [place] High Sensitivity Troponin (TNIH) and attachments. 45 pg/mL 3.0-78.0 [facility] 2.0 mg/dL 1.6-2.6 [facility] No Panel InformationOrdered By: Cesar Medina on 09-16-2023 46 pg/mL 3.0-78.0 [facility] 32.0 pg 27.0-32.0 [facility] 16.4 % 11.6-14.6 [facility] 60.7 fl 35.1-43.9 [facility] 0.700 % 0.0-0.9 [facility] 0 % 0-5 [facility] 32 mL/min >60 [facility] 39 mL/min >60 [facility] 23.37 ml/min [facility] 25.0 RATIO 10-20 [facility] 22.0 mmol/L 21.0-32.0 [facility] 179.0 pg/mL 0-100 [facility] Platelets bldOrdered By: Jodie Medina on 09-16-2023 Platelets (Bld) [#/Vol] 130 10*3/uL 150-450 [facility] Respiratory pathogens detect ion panel by molecular detection methodOrdered By: Patricia Alcantara on 09-16-2023 Respiratory pathogens DNA and RNA panel ELIANE+probe (Resp) [facility] Serum or plasma calcium aubree urement (mass/volume)Ordered By: Cesar Medina on 09-16-2023 Calcium [Mass/Vol] 8.8 mg/dL 8.5-10.1 [facility] Serum or plasma creatinine m easurement (mass/volume)Ordered By: Cesar Medina on 09-16-2023 Creatinine [Mass/Vol] 2.12 mg/dL 0.70-1.30 [facility] Serum or plasma urea nitroge n measurement (mass/volume)Ordered By: Cesar Medina on 09-16-2023 Urea nitrogen [Mass/Vol] 53 mg/dL 7-18 [facility] Serum procalcitonin measurem entOrdered By: Patricia Alcantara on 09-16-2023 Procalcitonin [Mass/Vol] 0.08 ng/mL 0.00-0.09 [facility] Comment on above: A procalcitonin (PCT ) [...] Papanicolaou smear with manual screening 7 5-15 [facility] Absolute lymphocyte countOrd ered By: James Camarillo on 08-22-2023 Lymphocytes Auto (Unsp spec) [#/Vol] 1.57 10*3/uL 0.83-4.51 [facility] Basophil percentageOrdered B y: James Camarillo on 08-22-2023 Basophil percentage 131 mg/dL 74-106 [facility] Basophil percentage 139 mmol/L 136-145 [facility] Basophil percentage 4.7 mmol/L 3.5-5.1 [facility] Basophil percentage 112 mmol/L 98-107 [facility] Basophils (Bld) [#/Vol] 9.5 10*3/uL 4.4-11.0 [facility] Basophils (Bld) [#/Vol] 7.2 10*3/uL 2.0-7.7 [facility] Basophils/100 WBC (Bld) 75.8 % 47-70 [facility] Basophils/100 WBC (Bld) 1.4 % 0-5 [facility] Basophils/100 WBC (Bld) 0.4 % 0-1 [facility] Blood erythrocytes count (nu mber/volume)Ordered By: James Camarillo on 08-22-2023 RBC (Bld) [#/Vol] 3.28 10*6/uL 4.6-6.2 [facility] Blood hemoglobin measurement (mass/volume)Ordered By: James Camarillo on 08-22-2023 Hemoglobin (Bld) [Mass/Vol] 10.2 g/dL 13.0-16.5 [facility] Blood lymphocytes/100 leukoc ytesOrdered By: James Camarillo on 08-22-2023 Lymphocytes/100 WBC (Bld) 16.5 % 19-41 [facility] Blood monocytes/100 leukocyt esOrdered By: James Camarillo on 08-22-2023 Monocytes/100 WBC (Bld) 5.6 % 0-10 [facility] Blood platelet mean volumeOr dered By: James Camarillo on 08-22-2023 Platelet mean volume (Bld) [Entitic vol] 10.8 fL 6.2-12.0 [facility] COVID-19 virus antigen assay Ordered By: Mikey Macias on 08-22-2023 SARS-CoV-2 (COVID-19) Ag IA.rapid Ql (Resp) [facility] SARS-CoV-2 (COVID-19) Ag IA.rapid Ql (Resp) [facility] Determination of erythrocyte mean corpuscular volume (MCV)Ordered By: James Camarillo on 08-22-2023 MCV (RBC) [Entitic vol] 98.2 fL 80-94 [facility] Glucose Glucometer (BldC) [M ass/Vol]Ordered By: Mikey Macias on 08-22-2023 Glucose [Mass/Vol] 170 mg/dL 74-106 [facility] Hematocrit Auto (Bld) [Volum e fraction]Ordered By: James Camarillo on 08-22-2023 Hematocrit (Bld) [Volume fraction] 32.2 % 40-54 [facility] MCHC Auto (RBC) [Mass/Vol]Or dered By: James Camarillo on 08-22-2023 MCHC (RBC) [Mass/Vol] 31.7 g/dL 32-36 [facility] No Panel InformationOrdered By: James Camarillo on 08-22-2023 31.1 pg 27.0-32.0 [facility] 14.2 % 11.6-14.6 [facility] 51.4 fl 35.1-43.9 [facility] 0.300 % 0.0-0.9 [facility] 0 % 0-5 [facility] 26 mL/min >60 [facility] 32 mL/min >60 [facility] 19.74 ml/min [facility] 18.3 RATIO 10-20 [facility] 21.0 mmol/L 21.0-32.0 [facility] Platelets bldOrdered By: Juan Camarillo on 08-22-2023 Platelets (Bld) [#/Vol] 137 10*3/uL 150-450 [facility] Serum or plasma calcium aubree urement (mass/volume)Ordered By: James Camarillo on 08-22-2023 Calcium [Mass/Vol] 8.7 mg/dL 8.5-10.1 [facility] Serum or plasma creatinine m easurement (mass/volume)Ordered By: James Camarillo on 08-22-2023 Creatinine [Mass/Vol] 2.51 mg/dL 0.70-1.30 [facility] Serum or plasma urea nitroge n measurement (mass/volume)Ordered By: James Camarillo on 08-22-2023 Urea nitrogen [Mass/Vol] 46 mg/dL 7-18 [facility] Thin prep Papanicolaou smear with manual screeningOrdered By: James Camarillo on 08-22-2023 Thin prep Papanicolaou smear with manual screening 6 5-15 [facility] Basophil percentageOrdered B y: James Camarillo on 08-21-2023 Basophil percentage 2.6 mg/dL 2.5-4.9 [facility] No Panel InformationOrdered By: James Camarillo on 08-21-2023 1.9 mg/dL 1.6-2.6 [facility] No Panel InformationOrdered By: James Camarillo on 08-20-2023 96.3 Seconds 24.1-36.2 [facility] Basophil percentageOrdered B y: Patricia Alcantara on 08-19-2023 Basophil percentage 6.9 g/dL 6.4-8.2 [facility] Basophil percentage 0.50 mg/dL 0.20-1.00 [facility] No Panel InformationOrdered By: Patricia Alcantara on 08-19-2023 4.5 g/dL 2.2-4.2 [facility] 110 U/L 45-117 [facility] 15 U/L 16-61 [facility] 5.80 uIU/mL 0.358-3.74 [facility] Serum or plasma albumin aubree urement (mass/volume)Ordered By: Patricia Alcantara on 08-19-2023 Albumin [Mass/Vol] 2.4 g/dL 3.2-5.0 [facility] Serum or plasma albumin/glob ulin mass ratioOrdered By: Patricia Alcantara on 08-19-2023 Albumin/Globulin [Mass ratio] 0.5 {ratio} 0.9-2.4 [facility] Thin prep Papanicolaou smear with manual screeningOrdered By: Patricia Alcantara on 08-19-2023 Thin prep Papanicolaou smear with manual screening 17 U/L 15-37 [facility] Absolute lymphocyte countOrd ered By: Farhan Bonds on 08-18-2023 Lymphocytes Auto (Unsp spec) [#/Vol] 1.58 10*3/uL 0.83-4.51 [facility] Absolute lymphocyte countOrd ered By: Jeremy Magallanes on 08-18-2023 Lymphocytes Auto (Unsp spec) [#/Vol] 1.56 10*3/uL 0.83-4.51 [facility] Basophil percentageOrdered B y: Patricia Alcantara on 08-18-2023 Ammonia (P) [Moles/Vol] 14.0 umol/L 11-32 [facility] Basophil percentage 14.0 umol/L 11-32 [facility] Basophil percentageOrdered B y: Farhan Bonds on 08-18-2023 Basophil percentage 151 mg/dL 74-106 [facility] Basophil percentage 139 mmol/L 136-145 [facility] Basophil percentage 4.5 mmol/L 3.5-5.1 [facility] Basophil percentage 107 mmol/L 98-107 [facility] Basophils (Bld) [#/Vol] 9.0 10*3/uL 4.4-11.0 [facility] Basophils (Bld) [#/Vol] 6.6 10*3/uL 2.0-7.7 [facility] Basophils/100 WBC (Bld) 73.4 % 47-70 [facility] Basophils/100 WBC (Bld) 1.8 % 0-5 [facility] Basophils/100 WBC (Bld) 0.4 % 0-1 [facility] Chloride [Moles/Vol] 107 mmol/L 98-107 [facility] Eosinophils/100 WBC (Bld) 1.8 % 0-5 [facility] Glucose [Mass/Vol] 151 mg/dL 74-106 [facility] Comment on above: Fasting Glucose resu lt greater than or equal to 126 mg/dL suggests DIABETES MELLITUS per A.D.A. criteria. Neutrophils (Bld) [#/Vol] 6.6 10*3/uL 2.0-7.7 [facility] Neutrophils/100 WBC (Bld) 73.4 % 47-70 [facility] Potassium [Moles/Vol] 4.5 mmol/L 3.5-5.1 [facility] Sodium [Moles/Vol] 139 mmol/L 136-145 [facility] WBC (Bld) [#/Vol] 9.0 10*3/uL 4.4-11.0 [facility] Basophil percentageOrdered B y: Jeremy Magallanes on 08-18-2023 Basophil percentage 144 mg/dL 74-106 [facility] Basophil percentage 7.1 g/dL 6.4-8.2 [facility] Basophil percentage 0.70 mg/dL 0.20-1.00 [facility] Basophil percentage 139 mmol/L 136-145 [facility] Basophil percentage 4.2 mmol/L 3.5-5.1 [facility] Basophil percentage 106 mmol/L 98-107 [facility] Basophils (Bld) [#/Vol] 9.1 10*3/uL 4.4-11.0 [facility] Basophils (Bld) [#/Vol] 6.8 10*3/uL 2.0-7.7 [facility] Basophils/100 WBC (Bld) 74.4 % 47-70 [facility] Basophils/100 WBC (Bld) 1.9 % 0-5 [facility] Basophils/100 WBC (Bld) 0.4 % 0-1 [facility] Bilirubin [Mass/Vol] 0.70 mg/dL 0.20-1.00 [facility] Comment on above: For patients on eltr ombopag therapy, use of Dimension [place] TBIL is not recommended. Chloride [Moles/Vol] 106 mmol/L 98-107 [facility] Eosinophils/100 WBC (Bld) 1.9 % 0-5 [facility] Glucose [Mass/Vol] 144 mg/dL 74-106 [facility] Comment on above: Fasting Glucose resu lt greater than or equal to 126 mg/dL suggests DIABETES MELLITUS per A.D.A. criteria. Neutrophils (Bld) [#/Vol] 6.8 10*3/uL 2.0-7.7 [facility] Neutrophils/100 WBC (Bld) 74.4 % 47-70 [facility] Potassium [Moles/Vol] 4.2 mmol/L 3.5-5.1 [facility] Protein [Mass/Vol] 7.1 g/dL 6.4-8.2 [facility] Sodium [Moles/Vol] 139 mmol/L 136-145 [facility] WBC (Bld) [#/Vol] 9.1 10*3/uL 4.4-11.0 [facility] Blood erythrocytes count (nu mber/volume)Ordered By: Farhan Bonds on 08-18-2023 RBC (Bld) [#/Vol] 3.47 10*6/uL 4.6-6.2 [facility] Blood erythrocytes count (nu mber/volume)Ordered By: Jeremy Magallanes on 08-18-2023 RBC (Bld) [#/Vol] 3.42 10*6/uL 4.6-6.2 [facility] Blood hemoglobin measurement (mass/volume)Ordered By: Farhan Bonds on 08-18-2023 Hemoglobin (Bld) [Mass/Vol] 10.8 g/dL 13.0-16.5 [facility] Blood hemoglobin measurement (mass/volume)Ordered By: Jeremy Magallanes on 08-18-2023 Hemoglobin (Bld) [Mass/Vol] 10.9 g/dL 13.0-16.5 [facility] Blood lymphocytes/100 leukoc ytesOrdered By: Farhan Bonds on 08-18-2023 Lymphocytes/100 WBC (Bld) 17.6 % - [facility] Blood lymphocytes/100 leukoc ytesOrdered By: Jeremy Magallanes on 08-18-2023 Lymphocytes/100 WBC (Bld) 17.1 % - [facility] Blood monocytes/100 leukocyt esOrdered By: Farhan Bonds on 08-18-2023 Monocytes/100 WBC (Bld) 6.4 % 0-10 [facility] Blood monocytes/100 leukocyt esOrdered By: Jeremy Magallanes on 08-18-2023 Monocytes/100 WBC (Bld) 5.9 % 0-10 [facility] Blood platelet mean volumeOr dered By: Farhan Bonds on 08-18-2023 Platelet mean volume (Bld) [Entitic vol] 11.3 fL 6.2-12.0 [facility] Blood platelet mean volumeOr dered By: Jeremy Magallanes on 08-18-2023 Platelet mean volume (Bld) [Entitic vol] 10.5 fL 6.2-12.0 [facility] Determination of erythrocyte mean corpuscular volume (MCV)Ordered By: Farhan Bonds on 08-18-2023 MCV (RBC) [Entitic vol] 98.8 fL 80-94 [facility] Determination of erythrocyte mean corpuscular volume (MCV)Ordered By: Jeremy Magallanes on 08-18-2023 MCV (RBC) [Entitic vol] 98.0 fL 80-94 [facility] Glucose Glucometer (BldC) [M ass/Vol]Ordered By: Jeremy Magallanes on 08-18-2023 Glucose [Mass/Vol] 147 mg/dL 74-106 [facility] Comment on above: MANAGEMENT OF PATIEN T CARE PER NURSING PROTOCOL HCO3 (BldA) [Moles/Vol]Order ed By: Patricia Alcantara on 08-18-2023 HCO3 (Bld) [Moles/Vol] 26 mmol/L 22-26 [facility] Hematocrit Auto (Bld) [Volum e fraction]Ordered By: Farhan Bonds on 08-18-2023 Hematocrit (Bld) [Volume fraction] 34.3 % 40-54 [facility] Hematocrit Auto (Bld) [Volum e fraction]Ordered By: Jeremy Magallanes on 08-18-2023 Hematocrit (Bld) [Volume fraction] 33.5 % 40-54 [facility] INR in Blood by Coagulation assayOrdered By: Patricia Alcantara on 08-18-2023 INR Coag (Bld) [Relative time] 1.6 {INR} [facility] Laboratory - Chemistry and C hemistry - challengeOrdered By: Patricia Alcantara on 08-18-2023 Magnesium [Mass/Vol] 1.9 mg/dL 1.6-2.6 [facility] Laboratory - Chemistry and C hemistry - challengeOrdered By: Farhan Bonds on 08-18-2023 CO2 [Moles/Vol] 29.0 mmol/L 21.0-32.0 [facility] Urea nitrogen/Creatinine [Mass ratio] 19.7 mg/mg 10- [facility] Laboratory - Chemistry and C hemistry - challengeOrdered By: Jeremy Magallanes on 08-18-2023 ALP [Catalytic activity/Vol] 130 U/L 45-117 [facility] ALT [Catalytic activity/Vol] 18 U/L 16-61 [facility] CO2 [Moles/Vol] 27.0 mmol/L 21.0-32.0 [facility] Globulin (S) [Mass/Vol] 4.1 g/dL 2.2-4.2 [facility] Urea nitrogen/Creatinine [Mass ratio] 19.5 mg/mg 10- [facility] Laboratory - CoagulationOrde red By: Patricia Alcantara on 08-18-2023 aPTT Coag (Bld) [Time] 40.0 s 24.1-36.2 [facility] PT Coag (PPP) [Time] 18.9 s 11.7-14.9 [facility] Laboratory - Hematology and Cell countsOrdered By: Farhan Bonds on 08-18-2023 Erythrocyte distribution width (RBC) [Entitic vol] 51.6 fL 35.1-43.9 [facility] Erythrocyte distribution width (RBC) [Ratio] 14.3 % 11.6-14.6 [facility] Immature granulocytes/100 WBC (Bld) 0.400 % 0.0-0.9 [facility] Comment on above: IG% - Immature Granu locytes (promyelocytes, myelocytes and metamyelocytes) > 1% indicates that a LEFT SHIFT is Present. MCH (RBC) [Entitic mass] 31.1 pg 27.0-32.0 [facility] Nucleated RBC/100 WBC (Bld) [Ratio] 0 % 0-5 [facility] Laboratory - Hematology and Cell countsOrdered By: Jeremy Magallanes on 08-18-2023 Erythrocyte distribution width (RBC) [Entitic vol] 50.4 fL 35.1-43.9 [facility] Erythrocyte distribution width (RBC) [Ratio] 14.0 % 11.6-14.6 [facility] Immature granulocytes/100 WBC (Bld) 0.300 % 0.0-0.9 [facility] Comment on above: IG% - Immature Granu locytes (promyelocytes, myelocytes and metamyelocytes) > 1% indicates that a LEFT SHIFT is Present. MCH (RBC) [Entitic mass] 31.9 pg 27.0-32.0 [facility] Nucleated RBC/100 WBC (Bld) [Ratio] 0 % 0-5 [facility] MCHC Auto (RBC) [Mass/Vol]Or dered By: Farhan Bonds on 08-18-2023 MCHC (RBC) [Mass/Vol] 31.5 g/dL -36 [facility] MCHC Auto (RBC) [Mass/Vol]Or dered By: Jeremy Magallanes on 08-18-2023 MCHC (RBC) [Mass/Vol] 32.5 g/dL [facility] No Panel InformationOrdered By: Patricia Alcantara on 08-18-2023 AYE [facility] Not entered [facility] Cannula [facility] 4.0 [facility] 47.0 mmHg 41-51 [facility] 1 mmol/L -1.0-3.5 [facility] 52 % 50-70 [facility] 28 mmol/L 23-33 [facility] 18.9 SECONDS 11.7-14.9 [facility] 40.0 Seconds 24.1-36.2 [facility] 1.9 mg/dL 1.6-2.6 [facility] No Panel InformationOrdered By: Farhan Bonds on 08-18-2023 Estimated Creatinine Clearance Calc 22.22 ml/min [facility] Estimated GFR (MDRD) Amer 36 mL/min >60 [facility] Comment on above: GFR Calc Estimated GFR (MDRD) Non-Af Amer 30 mL/min >60 [facility] Comment on above: Non- GFR Calc Troponin I High Sensitivity 78 pg/mL 3.0-78.0 [facility] Comment on above: Please Note: New Meghana t Units and Gender Specific Reference Ranges. For more information see Policy Stat Procedure [place] High Sensitivity Troponin (TNIH) and attachments. 31.1 pg 27.0-32.0 [facility] 14.3 % 11.6-14.6 [facility] 51.6 fl 35.1-43.9 [facility] 0.400 % 0.0-0.9 [facility] 0 % 0-5 [facility] 30 mL/min >60 [facility] 36 mL/min >60 [facility] 22.22 ml/min [facility] 19.7 RATIO 10-20 [facility] 78 pg/mL 3.0-78.0 [facility] 29.0 mmol/L 21.0-32.0 [facility] No Panel InformationOrdered By: Jeremy Magallanes on 08-18-2023 Estimated Creatinine Clearance Calc 22.52 ml/min [facility] Estimated GFR (MDRD) Amer 37 mL/min >60 [facility] Comment on above: GFR Calc Estimated GFR (MDRD) Non-Af Amer 31 mL/min >60 [facility] Comment on above: Non- GFR Calc 31.9 pg 27.0-32.0 [facility] 14.0 % 11.6-14.6 [facility] 50.4 fl 35.1-43.9 [facility] 0.300 % 0.0-0.9 [facility] 0 % 0-5 [facility] 31 mL/min >60 [facility] 37 mL/min >60 [facility] 22.52 ml/min [facility] 19.5 RATIO 10-20 [facility] 4.1 g/dL 2.2-4.2 [facility] 130 U/L 45-117 [facility] 18 U/L 16-61 [facility] 27.0 mmol/L 21.0-32.0 [facility] PO2 venousOrdered By: Patricia Alcantara on 08-18-2023 Oxygen (BldV) [Partial pressure] 29 mm[Hg] 25-40 [facility] Platelets bldOrdered By: Mariusz Bonds on 08-18-2023 Platelets (Bld) [#/Vol] 153 10*3/uL 150-450 [facility] Platelets bldOrdered By: Jeremy Magallanes on 08-18-2023 Platelets (Bld) [#/Vol] 147 10*3/uL 150-450 [facility] Serum or plasma albumin aubree urement (mass/volume)Ordered By: Jeremy Magallanes on 08-18-2023 Albumin [Mass/Vol] 3.0 g/dL 3.2-5.0 [facility] Serum or plasma albumin/glob ulin mass ratioOrdered By: Jeremy Magallanes on 08-18-2023 Albumin/Globulin [Mass ratio] 0.7 {ratio} 0.9-2.4 [facility] Serum or plasma calcium aubree urement (mass/volume)Ordered By: Farhan Bonds on 08-18-2023 Calcium [Mass/Vol] 9.6 mg/dL 8.5-10.1 [facility] Serum or plasma calcium aubree urement (mass/volume)Ordered By: Jeremy Magallanes on 08-18-2023 Calcium [Mass/Vol] 9.4 mg/dL 8.5-10.1 [facility] Serum or plasma creatinine m easurement (mass/volume)Ordered By: Farhan Bonds on 08-18-2023 Creatinine [Mass/Vol] 2.23 mg/dL 0.70-1.30 [facility] Comment on above: The validity of the calculated GFR & GFRAA in patients over 70 years has not been determined. Clinical correlation is essential. Serum or plasma creatinine m easurement (mass/volume)Ordered By: Jeremy Magallanes on 08-18-2023 Creatinine [Mass/Vol] 2.20 mg/dL 0.70-1.30 [facility] Comment on above: The validity of the calculated GFR & GFRAA in patients over 70 years has not been determined. Clinical correlation is essential. Serum or plasma urea nitroge n measurement (mass/volume)Ordered By: Farhan Bonds on 08-18-2023 Urea nitrogen [Mass/Vol] 44 mg/dL 06-14 [facility] Serum or plasma urea nitroge n measurement (mass/volume)Ordered By: Jeremy Magallanes on 08-18-2023 Urea nitrogen [Mass/Vol] 43 mg/dL 06-14 [facility] Thin prep Papanicolaou smear with manual screeningOrdered By: Farhan Bonds on 08-18-2023 Thin prep Papanicolaou smear with manual screening 3 5-15 [facility] Thin prep Papanicolaou smear with manual screeningOrdered By: Jeremy Magallanes on 08-18-2023 Thin prep Papanicolaou smear with manual screening 18 U/L 15-37 [facility] Thin prep Papanicolaou smear with manual screening 6 5-15 [facility] pH measurementOrdered By: Dia Alcantara on 08-18-2023 pH (Unsp spec) 7.36 [pH] 7.32-7.42 [facility] COVID-19 virus antigen assay Ordered By: Jeremy Magallanes on 08-17-2023 SARS-CoV-2 (COVID-19) Ag IA.rapid Ql (Resp) [facility] SARS-CoV-2 (COVID-19) Ag IA.rapid Ql (Resp) [facility] Glucose Glucometer (BldC) [M ass/Vol]Ordered By: Jeremy Magallanes on 08-11-2023 Glucose [Mass/Vol] 105 mg/dL 74-106 [facility] Comment on above: MANAGEMENT OF PATIEN T CARE PER NURSING PROTOCOL Absolute lymphocyte countOrd ered By: Jeremy Magallanes on 08-10-2023 Lymphocytes Auto (Unsp spec) [#/Vol] 1.95 10*3/uL 0.83-4.51 [facility] Basophil percentageOrdered B y: Jeremy Magallanes on 08-10-2023 Basophils/100 WBC (Bld) 0.5 % 0-1 [facility] Chloride [Moles/Vol] 106 mmol/L 98-107 [facility] Eosinophils/100 WBC (Bld) 2.2 % 0-5 [facility] Glucose [Mass/Vol] 188 mg/dL 74-106 [facility] Comment on above: Fasting Glucose resu lt greater than or equal to 126 mg/dL suggests DIABETES MELLITUS per A.D.A. criteria. Neutrophils (Bld) [#/Vol] 6.0 10*3/uL 2.0-7.7 [facility] Neutrophils/100 WBC (Bld) 69.3 % 47-70 [facility] Potassium [Moles/Vol] 4.1 mmol/L 3.5-5.1 [facility] Sodium [Moles/Vol] 138 mmol/L 136-145 [facility] WBC (Bld) [#/Vol] 8.7 10*3/uL 4.4-11.0 [facility] Blood erythrocytes count (nu mber/volume)Ordered By: Jeremy Magallanes on 08-10-2023 RBC (Bld) [#/Vol] 3.49 10*6/uL 4.6-6.2 [facility] Blood hemoglobin measurement (mass/volume)Ordered By: Jeremy Magallanes on 08-10-2023 Hemoglobin (Bld) [Mass/Vol] 10.9 g/dL 13.0-16.5 [facility] Blood lymphocytes/100 leukoc ytesOrdered By: Jeremy Magallanes on 08-10-2023 Lymphocytes/100 WBC (Bld) 22.5 % 19-41 [facility] Blood monocytes/100 leukocyt esOrdered [facility] Monocytes/100 WBC (Bld) 5.2 % 0-10 [facility] Blood platelet mean volumeOr dered By: Jeremy Magallanes on 08-10-2023 Platelet mean volume (Bld) [Entitic vol] 10.6 fL 6.2-12.0 [facility] Determination of erythrocyte mean corpuscular volume (MCV)Ordered By: Jeremy Magallanes on 08-10-2023 MCV (RBC) [Entitic vol] 99.7 fL 80-94 [facility] Hematocrit Auto (Bld) [Volum e fraction][facility] Hematocrit (Bld) [Volume fraction] 34.8 % 40-54 [facility] Laboratory - Chemistry and C hemistry - challengeOrdered By: [facility] 08-10[facility] CO2 [Moles/Vol] 26.0 mmol/L 21.0-32.0 [facility] Urea nitrogen/Creatinine [Mass ratio] 22.1 mg/mg 10-20 [facility] Laboratory - Hematology and Cell countsOrdered By: Jeremy [facility] on 08-10-2023 Erythrocyte distribution width (RBC) [Entitic vol] 51.8 fL 35.1-43.9 [facility] Erythrocyte distribution width (RBC) [Ratio] 14.4 % 11.6-14.6 [facility] Immature granulocytes/100 WBC (Bld) 0.300 % 0.0-0.9 [facility] Comment on above: IG% - Immature Granu locytes (promyelocytes, myelocytes and metamyelocytes) > 1% indicates that a LEFT SHIFT is Present. MCH (RBC) [Entitic mass] 31.2 pg 27.0-32.0 [facility] Nucleated RBC/100 WBC (Bld) [Ratio] 0 % 0-5 [facility] MCHC Auto (RBC) [Mass/Vol]Or dered By: Jeremy Magallanes on 08-10-2023 MCHC (RBC) [Mass/Vol] 31.3 g/dL 32-36 [facility] No Panel InformationOrdered By: Jeremy Magallanes on 08-10-2023 Estimated Creatinine Clearance Calc 21.08 ml/min [facility] Estimated GFR (MDRD) Amer 34 mL/min >60 [facility] Comment on above: GFR Calc Estimated GFR (MDRD) Non-Af Amer 28 mL/min >60 [facility] Comment on above: Non- GFR Calc Platelets bldOrdered By: Jeremy Magallanes on 08-10-2023 Platelets (Bld) [#/Vol] 136 10*3/uL 150-450 [facility] Serum or plasma calcium aubree urement (mass/volume)Ordered By: Jeremy Magallanes on 08-10-2023 Calcium [Mass/Vol] 9.7 mg/dL 8.5-10.1 [facility] Serum or plasma creatinine m easurement (mass/volume)Ordered By: Jeremy Magallanes on 08-10-2023 Creatinine [Mass/Vol] 2.35 mg/dL 0.70-1.30 [facility] Comment on above: The validity of the calculated GFR & GFRAA in patients over 70 years has not been determined. Clinical correlation is essential. Serum or plasma urea nitroge n measurement (mass/volume)Ordered By: Jeremy Magallanes on 08-10-2023 Urea nitrogen [Mass/Vol] 52 mg/dL 7-18 [facility] Thin prep Papanicolaou smear with manual screeningOrdered By: Jeremy Magallanes 08-10-2023 Thin prep Papanicolaou smear with manual screening 6 5-15 [facility] COVID-19 virus antigen assay Ordered By: Jeremy Magallanes on 08-09-2023 SARS-CoV-2 (COVID-19) Ag IA.rapid Ql (Resp) [facility] Glucose Glucometer (BldC) [M ass/Vol]Ordered By: Jeremy Magallanes on 07-27-2023 Glucose [Mass/Vol] 83 mg/dL 74-106 [facility] Comment on above: MANAGEMENT OF PATIEN T CARE PER NURSING PROTOCOL Absolute lymphocyte countOrd ered By: Jeremy Magallanes on 07-25-2023 Lymphocytes Auto (Unsp spec) [#/Vol] 1.42 10*3/uL 0.83-4.51 [facility] Basophil percentageOrdered B y: Jeremy Magallanes on 07-25-2023 Basophils/100 WBC (Bld) 0.5 % 0-1 [facility] Chloride [Moles/Vol] 114 mmol/L 98-107 [facility] Eosinophils/100 WBC (Bld) 4.1 % 0-5 [facility] Glucose [Mass/Vol] 92 mg/dL 74-106 [facility] Neutrophils (Bld) [#/Vol] 5.4 10*3/uL 2.0-7.7 [facility] Neutrophils/100 WBC (Bld) 69.0 % 47-70 [facility] Potassium [Moles/Vol] 4.3 mmol/L 3.5-5.1 [facility] Sodium [Moles/Vol] 142 mmol/L 136-145 [facility] WBC (Bld) [#/Vol] 7.8 10*3/uL 4.4-11.0 [facility] Blood erythrocytes count (nu mber/volume)Ordered By: Jeremy Magallanes on 07-25-2023 RBC (Bld) [#/Vol] 2.97 10*6/uL 4.6-6.2 [facility] Blood hemoglobin measurement (mass/volume)Ordered By: Jeremy Magallanes on 07-25-2023 Hemoglobin (Bld) [Mass/Vol] 9.6 g/dL 13.0-16.5 [facility] Blood lymphocytes/100 leukoc ytesOrdered By: Jeremy Magallanes on 07-25-2023 Lymphocytes/100 WBC (Bld) 18.2 % 19-41 [facility] Blood monocytes/100 leukocyt esOrdered By: Jeremy Magallanes on 07-25-2023 Monocytes/100 WBC (Bld) 7.8 % 0-10 [facility] Blood platelet mean volumeOr dered By: Jeremy Magallanes on 07-25-2023 Platelet mean volume (Bld) [Entitic vol] 10.7 fL 6.2-12.0 [facility] Determination of erythrocyte mean corpuscular volume (MCV)Ordered By: Jeremy Magallanes on 07-25-2023 MCV (RBC) [Entitic vol] 99.0 fL 80-94 [facility] Hematocrit Auto (Bld) [Volum e fraction]Ordered By: Jeremy Magallanes on 07-25-2023 Hematocrit (Bld) [Volume fraction] 29.4 % 40-54 [facility] Laboratory - Chemistry and C hemistry - challengeOrdered By: Jeremy Magallanes on 07-25-2023 CO2 [Moles/Vol] 23.0 mmol/L 21.0-32.0 [facility] Urea nitrogen/Creatinine [Mass ratio] 27.4 mg/mg 10-20 [facility] Laboratory - Hematology and Cell countsOrdered By: Jeremy Magallanes on 07-25-2023 Erythrocyte distribution width (RBC) [Entitic vol] 55.1 fL 35.1-43.9 [facility] Erythrocyte distribution width (RBC) [Ratio] 15.3 % 11.6-14.6 [facility] Immature granulocytes/100 WBC (Bld) 0.400 % 0.0-0.9 [facility] Comment on above: IG% - Immature Granu locytes (promyelocytes, myelocytes and metamyelocytes) > 1% indicates that a LEFT SHIFT is Present. MCH (RBC) [Entitic mass] 32.3 pg 27.0-32.0 [facility] Nucleated RBC/100 WBC (Bld) [Ratio] 0 % 0-5 [facility] MCHC Auto (RBC) [Mass/Vol]Or dered By: Jeremy Magallanes on 07-25-2023 MCHC (RBC) [Mass/Vol] 32.7 g/dL 32-36 [facility] Comment on above: Delta: 31.1 on 07/21 No Panel InformationOrdered By: Jeremy Magallanes on 07-25-2023 Estimated Creatinine Clearance Calc 20.90 ml/min [facility] Estimated GFR (MDRD) Amer 34 mL/min >60 [facility] Comment on above: GFR Calc Estimated GFR (MDRD) Non-Af Amer 28 mL/min >60 [facility] Comment on above: Non- GFR Calc Platelets bldOrdered By: Jeremy Magallanes on 07-25-2023 Platelets (Bld) [#/Vol] 135 10*3/uL 150-450 [facility] Serum or plasma calcium aubree urement (mass/volume)Ordered By: Jeermy Magallanes on 07-25-2023 Calcium [Mass/Vol] 9.1 mg/dL 8.5-10.1 [facility] Serum or plasma creatinine m easurement (mass/volume)Ordered By: Jreemy Magallanes on 07-25-2023 Creatinine [Mass/Vol] 2.37 mg/dL 0.70-1.30 [facility] Comment on above: The validity of the calculated GFR & GFRAA in patients over 70 years has not been determined. Clinical correlation is essential. Serum or plasma urea nitroge n measurement (mass/volume)Ordered By: Jeremy Magallanes on 07-25-2023 Urea nitrogen [Mass/Vol] 65 mg/dL 7-18 [facility] Thin prep Papanicolaou smear with manual screeningOrdered By: Jeremy Magallanes on 07-25-2023 Thin prep Papanicolaou smear with manual screening 5 5-15 [facility] Basophil percentageOrdered B y: Jeremy Magallanes on 07-21-2023 Basophil percentage 0-5 SEEN /hpf 0-5 [facility] Bilirubin Test strip Ql (U)O rdered By: Jeremy Magallanes on 07-21-2023 Bilirubin Ql (U) Negative Negative [facility] Culture, urineOrdered By: Jono Magallanes on 07-21-2023 Bacteria identified Cx Nom (U) Culture exhibits no growth. [facility] Bacteria identified Cx Nom (U) Culture exhibits no growth. [facility] Ketones Test strip Ql (U)Ord ered By: Jeremy Magallanes on 07-21-2023 Ketones Ql (U) Negative Negative [facility] Mucus LM Ql (Urine sed)Order ed By: Jeremy Magallanes on 07-21-2023 Mucus Ql (Urine sed) 0 SEEN /hpf [facility] Nitrite Test strip Ql (U)Ord ered By: Jeremy Magallanes on 07-21-2023 Nitrite Ql (U) Negative Negative [facility] Protein Test strip Ql (U)Ord ered By: Jeremy Magallanes on 07-21-2023 Protein Ql (U) 30 mg/dl Negative [facility] Squamous epithelial cells de tection in urine sediment by light microscopyOrdered By: Jeremy Magallanes on 07-21-2023 Epithelial cells.squamous LM Ql (Urine sed) 0 SEEN /hpf 0-5 [facility] Urine blood detectionOrdered By: Jeremy Magallanes on 07-21-2023 RBC Ql (U) Negative Negative [facility] RBC Ql (U) 0 SEEN /hpf 0-5 [facility] Urine clarityOrdered By: Jeremy Magallanes on 07-21-2023 Clarity (U) Clear Clear [facility] Urine color determinationOrd ered By: Jeremy Magallanes on 07-21-2023 Color (U) Yellow Yellow [facility] Urine glucose detectionOrder ed By: Jeremy Magallanes on 07-21-2023 Glucose Ql (U) Normal mg/dl Normal [facility] Urine leukocyte esterase det ection by dipstickOrdered By: eJremy Magallanes on 07-21-2023 Leukocyte esterase Test strip Ql (U) Negative Negative [facility] Urine pHOrdered By: Jeremy Magallanes on 07-21-2023 pH (U) 5.0 [pH] 5.0 - 8.0 [facility] Urine sediment bacteria coun t by microscopy (number/high power field)Ordered By: Jeremy Magallanes on 07-21-2023 Bacteria LM.HPF (Urine sed) [#/Area] 0 /[HPF] None Seen [facility] Urine specific gravity measu rementOrdered By: Jeremy Magallanes on 07-21-2023 Specific gravity (U) [Rel density] 1.015 1.002-1.030 [facility] Urobilinogen Auto test strip Ql (U)Ordered By: Jeremy Magallanes on 07-21-2023 Urobilinogen Ql (U) Normal mg/dl Normal [facility] Laboratory - Chemistry and C hemistry - challengeOrdered By: Jeremy Magallanes on 07-12-2023 Natriuretic peptide B (Bld) [Mass/Vol] 174.5 pg/mL 0-100 [facility] No Panel InformationOrdered By: Jeremy Magallanes on 07-12-2023 174.5 pg/mL 0-100 [facility] Levetiracetam (Keppra) Level 39.0 ug/mL 10.0-40.0 [facility] Comment on above: Performed at: [facility] [address] [id number] Director: Suzy Adames MD, Phone: [phone] 39.0 ug/mL 10.0-40.0 [facility] Absolute lymphocyte countOrd ered By: Jeremy Magallanes on 07-11-2023 Lymphocytes Auto (Unsp spec) [#/Vol] 0.89 10*3/uL 0.83-4.51 [facility] Basophil percentageOrdered B y: Jeremy Magallanes on 07-11-2023 Basophil percentage 141 mg/dL 74-106 [facility] Basophil percentage 136 mmol/L 136-145 [facility] Basophil percentage 5.0 mmol/L 3.5-5.1 [facility] Basophil percentage 109 mmol/L 98-107 [facility] Basophils (Bld) [#/Vol] 9.1 10*3/uL 4.4-11.0 [facility] Basophils (Bld) [#/Vol] 7.0 10*3/uL 2.0-7.7 [facility] Basophils/100 WBC (Bld) 76.7 % 47-70 [facility] Basophils/100 WBC (Bld) 3.2 % 0-5 [facility] Basophils/100 WBC (Bld) 0.4 % 0-1 [facility] Blood erythrocytes count (nu mber/volume)Ordered By: Jeremy Magallanes on 07-11-2023 RBC (Bld) [#/Vol] 3.18 10*6/uL 4.6-6.2 [facility] Blood hemoglobin measurement (mass/volume)Ordered By: Jeremy Magallanes on 07-11-2023 Hemoglobin (Bld) [Mass/Vol] 10.2 g/dL 13.0-16.5 [facility] Blood lymphocytes/100 leukoc ytesOrdered By: Jeremy Magallanes on 07-11-2023 Lymphocytes/100 WBC (Bld) 9.8 % 19-41 [facility] Blood monocytes/100 leukocyt esOrdered By: Jeremy Magallanes on 07-11-2023 Monocytes/100 WBC (Bld) 9.5 % 0-10 [facility] Blood platelet mean volumeOr dered By: Jeremy Magallanes on 07-11-2023 Platelet mean volume (Bld) [Entitic vol] 10.5 fL 6.2-12.0 [facility] Determination of erythrocyte mean corpuscular volume (MCV)Ordered By: Jeremy Magallanes on 07-11-2023 MCV (RBC) [Entitic vol] 100.0 fL 80-94 [facility] Glucose Glucometer (BldC) [M ass/Vol]Ordered By: Jeremy Magallanes on 07-11-2023 Glucose [Mass/Vol] 132 mg/dL 74-106 [facility] Hematocrit Auto (Bld) [Volum e fraction]Ordered By: Jeremy Magallanes 07-11-2023 Hematocrit (Bld) [Volume fraction] 31.8 % 40-54 [facility] MCHC Auto (RBC) [Mass/Vol]Or dered By: Jeremy Magallanes 07-11-2023 MCHC (RBC) [Mass/Vol] 32.1 g/dL 32-36 [facility] No Panel InformationOrdered By: Jeremy Magallanes on 07-11-2023 32.1 pg 27.0-32.0 [facility] 15.2 % 11.6-14.6 [facility] 53.7 fl 35.1-43.9 [facility] 0.400 % 0.0-0.9 [facility] 0 % 0-5 [facility] 28 mL/min >60 [facility] 33 mL/min >60 [facility] 20.56 ml/min [facility] 27.8 RATIO 10-20 [facility] 20.0 mmol/L 21.0-32.0 [facility] Platelets bldOrdered By: Jeremy Magallanes 07-11-2023 Platelets (Bld) [#/Vol] 161 10*3/uL 150-450 [facility] Serum or plasma calcium aubree urement (mass/volume)Ordered By: Jeremy Magallanes 07-11-2023 Calcium [Mass/Vol] 9.0 mg/dL 8.5-10.1 [facility] Serum or plasma creatinine m easurement (mass/volume)Ordered By: Jeremy Magallanes 07-11-2023 Creatinine [Mass/Vol] 2.41 mg/dL 0.70-1.30 [facility] Serum or plasma urea nitroge n measurement (mass/volume)Ordered By: Jeremy Magallanes on 07-11-2023 Urea nitrogen [Mass/Vol] 67 mg/dL 7-18 [facility] Thin prep Papanicolaou smear with manual screeningOrdered By: Jeremy Magallanes on 07-11-2023 Thin prep Papanicolaou smear with manual screening 7 5-15 [facility] Basophil percentageOrdered B y: Jeremy Magallanes on 07-08-2023 Basophil percentage 6.7 g/dL 6.4-8.2 [facility] Basophil percentage 1.10 mg/dL 0.20-1.00 [facility] Bilirubin [Mass/Vol] 1.10 mg/dL 0.20-1.00 [facility] Comment on above: For patients on eltr ombopag therapy, use of Dimension [place] TBIL is not recommended. Protein [Mass/Vol] 6.7 g/dL 6.4-8.2 [facility] Laboratory - Chemistry and C hemistry - challengeOrdered By: Jeremy Magallanes on 07-08-2023 ALP [Catalytic activity/Vol] 144 U/L 45-117 [facility] ALT [Catalytic activity/Vol] 19 U/L 16- [facility] Globulin (S) [Mass/Vol] 4.0 g/dL 2.2-4.2 [facility] No Panel InformationOrdered By: Jeremy Magallanes on 07-08-2023 4.0 g/dL 2.2-4.2 [facility] 144 U/L 45-117 [facility] 19 U/L [facility] 329.5 pg/mL 0-100 [facility] Serum or plasma albumin aubree urement (mass/volume)Ordered By: Jeremy Magallanes on 07-08-2023 Albumin [Mass/Vol] 2.7 g/dL 3.2-5.0 [facility] Serum or plasma albumin/glob ulin mass ratioOrdered By: Jeremy Magallanes on 07-08-2023 Albumin/Globulin [Mass ratio] 0.7 {ratio} 0.9-2.4 [facility] Thin prep Papanicolaou smear with manual screeningOrdered By: Jeremy Magallanes on 07-08-2023 Thin prep Papanicolaou smear with manual screening 20 U/L 15-37 [facility] Basophil percentageOrdered B y: Jeremy Magallanes on 07-07-2023 Basophil percentage 0 SEEN /hpf 0-5 [facility] Bilirubin Test strip Ql (U)O rdered By: Jeremy Magallanes on 07-07-2023 Bilirubin Ql (U) Negative Negative [facility] Culture, urineOrdered By: Jono Magallanes on 07-07-2023 Bacteria identified Cx Nom (U) Culture exhibits no growth. [facility] Ketones Test strip Ql (U)Ord ered By: Jeremy Magallanes on 07-07-2023 Ketones Ql (U) Negative Negative [facility] Mucus LM Ql (Urine sed)Order ed By: Jeremy Magallanes on 07-07-2023 Mucus Ql (Urine sed) 0 SEEN /hpf [facility] Nitrite Test strip Ql (U)Ord ered By: Jeremy Magallanes on 07-07-2023 Nitrite Ql (U) Negative Negative [facility] Protein Test strip Ql (U)Ord ered By: Jeremy Magallanes on 07-07-2023 Protein Ql (U) 100 mg/dl Negative [facility] Squamous epithelial cells de tection in urine sediment by light microscopyOrdered By: Jeremy Magallanes on 07-07-2023 Epithelial cells.squamous LM Ql (Urine sed) 0 SEEN /hpf 0-5 [facility] Urine blood detectionOrdered By: Jeremy Magallanes on 07-07-2023 RBC Ql (U) 250 /ul Negative [facility] RBC Ql (U) 5-10 SEEN /hpf 0-5 [facility] Urine clarityOrdered By: Jeremy Magallanes on 07-07-2023 Clarity (U) Clear Clear [facility] Urine color determinationOrd ered By: Jeremy Magallanes on 07-07-2023 Color (U) Yellow Yellow [facility] Urine glucose detectionOrder ed By: Jeremy Magallanes on 07-07-2023 Glucose Ql (U) Normal mg/dl Normal [facility] Urine leukocyte esterase det ection by dipstickOrdered By: Jeremy Magallanes on 07-07-2023 Leukocyte esterase Test strip Ql (U) Negative Negative [facility] Urine pHOrdered By: Jeremy Magallanes on 07-07-2023 pH (U) 6.0 [pH] 5.0 - 8.0 [facility] Urine sediment bacteria coun t by microscopy (number/high power field)Ordered By: Jeremy Magallanes on 07-07-2023 Bacteria LM.HPF (Urine sed) [#/Area] 0 /[HPF] None Seen [facility] Urine specific gravity measu rementOrdered By: Jeremy Magallanes on 07-07-2023 Specific gravity (U) [Rel density] 1.015 1.002-1.030 [facility] Urobilinogen Auto test strip Ql (U)Ordered By: Jeremy Magallanes on 07-07-2023 Urobilinogen Ql (U) Normal mg/dl Normal [facility] No Panel InformationOrdered By: Jeremy Magallanes on 07-06-2023 Vitamin D 25-Hydroxy 42.3 ng/mL [facility] Comment on above: Vitamin D 25(OH) Sta tus Range Deficiency <20 ng/mL (50nmol/L) Insufficiency 20 - 30 ng/mL (50 - 75 nmol/L) Sufficiency 30 - 100 ng/mL (75 - 250 nmol/L) Toxicity >100 ng/mL (>250 nmol/L) 42.3 ng/mL [facility] Stool gastrointestinal hemog lobin detection by immunologic methodOrdered By: Jeremy Magallanes on 07-06-2023 Lower GI hemoglobin IA Ql (Stl) [facility] Stool gastrointestinal hemog lobin detection by immunologic methodOrdered By: Jeremy Magallanes on 07-05-2023 Lower GI hemoglobin IA Ql (Stl) [facility] Glucose Glucometer (BldC) [M ass/Vol]Ordered By: Woody Brunson on 07-03-2023 Glucose [Mass/Vol] 180 mg/dL 74-106 [facility] Comment on above: MANAGEMENT OF PATIEN T CARE PER NURSING PROTOCOL Absolute lymphocyte countOrd ered By: Woody Brunson on 07-01-2023 Lymphocytes Auto (Unsp spec) [#/Vol] 1.34 10*3/uL 0.83-4.51 [facility] Basophil percentageOrdered B y: Woody Brunson on 07-01-2023 Basophil percentage 129 mg/dL 74-106 [facility] Basophil percentage 7.2 g/dL 6.4-8.2 [facility] Basophil percentage 1.50 mg/dL 0.20-1.00 [facility] Basophil percentage 139 mmol/L 136-145 [facility] Basophil percentage 4.4 mmol/L 3.5-5.1 [facility] Basophil percentage 109 mmol/L 98-107 [facility] Basophils (Bld) [#/Vol] 9.3 10*3/uL 4.4-11.0 [facility] Basophils (Bld) [#/Vol] 7.1 10*3/uL 2.0-7.7 [facility] Basophils/100 WBC (Bld) 0.4 % 0-1 [facility] Basophils/100 WBC (Bld) 76.6 % 47-70 [facility] Basophils/100 WBC (Bld) 0.6 % 0-5 [facility] Bilirubin [Mass/Vol] 1.50 mg/dL 0.20-1.00 [facility] Comment on above: For patients on eltr ombopag therapy, use of Dimension [place] TBIL is not recommended. Chloride [Moles/Vol] 109 mmol/L 98-107 [facility] [facility] Eosinophils/100 WBC (Bld) 0.6 % 0-5 [facility] Glucose [Mass/Vol] 129 mg/dL 74-106 [facility] Comment on above: Fasting Glucose resu lt greater than or equal to 126 mg/dL suggests DIABETES MELLITUS per A.D.A. criteria. Neutrophils (Bld) [#/Vol] 7.1 10*3/uL 2.0-7.7 [facility] Neutrophils/100 WBC (Bld) 76.6 % 47-70 [facility] Potassium [Moles/Vol] 4.4 mmol/L 3.5-5.1 [facility] Protein [Mass/Vol] 7.2 g/dL 6.4-8.2 [facility] Sodium [Moles/Vol] 139 mmol/L 136-145 [facility] WBC (Bld) [#/Vol] 9.3 10*3/uL 4.4-11.0 [facility] Blood erythrocytes count (nu mber/volume)Ordered By: Woody Brunson on 07-01-2023 RBC (Bld) [#/Vol] 3.55 10*6/uL 4.6-6.2 [facility] Blood hemoglobin measurement (mass/volume)Ordered By: Woody Brunson on 07-01-2023 Hemoglobin (Bld) [Mass/Vol] 11.4 g/dL 13.0-16.5 [facility] Blood lymphocytes/100 leukoc ytesOrdered By: Woody Brunson on 07-01-2023 Lymphocytes/100 WBC (Bld) 14.4 % 19-41 [facility] Blood monocytes/100 leukocyt esOrdered By: Woody Brunson on 07-01-2023 Monocytes/100 WBC (Bld) 7.7 % 0-10 [facility] Blood platelet mean volumeOr dered By: Woody Brunson on 07-01-2023 Platelet mean volume (Bld) [Entitic vol] 11.0 fL 6.2-12.0 [facility] Determination of erythrocyte mean corpuscular volume (MCV)Ordered By: Woody Brunson on 07-01-2023 MCV (RBC) [Entitic vol] 98.0 fL 80-94 [facility] Hematocrit Auto (Bld) [Volum e fraction]Ordered By: Woody Brunson on 07-01-2023 Hematocrit (Bld) [Volume fraction] 34.8 % 40-54 [facility] Laboratory - Chemistry and C hemistry - challengeOrdered By: Woody Brunson on 07-01-2023 ALP [Catalytic activity/Vol] 134 U/L 45-117 [facility] ALT [Catalytic activity/Vol] 14 U/L 16-61 [facility] CO2 [Moles/Vol] 25.0 mmol/L 21.0-32.0 [facility] Globulin (S) [Mass/Vol] 4.1 g/dL 2.2-4.2 [facility] Urea nitrogen/Creatinine [Mass ratio] 20.8 mg/mg 10-20 [facility] Laboratory - Hematology and Cell countsOrdered By: Woody Brunson on 07-01-2023 Erythrocyte distribution width (RBC) [Entitic vol] 51.6 fL 35.1-43.9 [facility] Erythrocyte distribution width (RBC) [Ratio] 14.3 % 11.6-14.6 [facility] Immature granulocytes/100 WBC (Bld) 0.300 % 0.0-0.9 [facility] Comment on above: IG% - Immature Granu locytes (promyelocytes, myelocytes and metamyelocytes) > 1% indicates that a LEFT SHIFT is Present. MCH (RBC) [Entitic mass] 32.1 pg 27.0-32.0 [facility] Nucleated RBC/100 WBC (Bld) [Ratio] 0 % 0-5 [facility] MCHC Auto (RBC) [Mass/Vol]Or dered By: Woody Brunson on 07-01-2023 MCHC (RBC) [Mass/Vol] 32.8 g/dL 32-36 [facility] No Panel InformationOrdered By: Woody Brunson on 07-01-2023 Estimated Creatinine Clearance Calc 23.37 ml/min [facility] Estimated GFR (MDRD) Amer 39 mL/min >60 [facility] Comment on above: GFR Calc Estimated GFR (MDRD) Non-Af Amer 32 mL/min >60 [facility] Comment on above: Non- GFR Calc 32.1 pg 27.0-32.0 [facility] 14.3 % 11.6-14.6 [facility] 51.6 fl 35.1-43.9 [facility] 0.300 % 0.0-0.9 [facility] 0 % 0-5 [facility] 32 mL/min >60 [facility] 39 mL/min >60 [facility] 23.37 ml/min [facility] 20.8 RATIO 10-20 [facility] 4.1 g/dL 2.2-4.2 [facility] 134 U/L 45-117 [facility] 14 U/L 16-61 [facility] 25.0 mmol/L 21.0-32.0 [facility] Platelets bldOrdered By: Ksenia Brunson on 07-01-2023 Platelets (Bld) [#/Vol] 116 10*3/uL 150-450 [facility] Serum or plasma albumin aubree urement (mass/volume)Ordered By: Woody Brunson on 07-01-2023 Albumin [Mass/Vol] 3.1 g/dL 3.2-5.0 [facility] Serum or plasma albumin/glob ulin mass ratioOrdered By: Woody Brunson on 07-01-2023 Albumin/Globulin [Mass ratio] 0.8 {ratio} 0.9-2.4 [facility] Serum or plasma calcium aubree urement (mass/volume)Ordered By: Woody Brunson on 07-01-2023 Calcium [Mass/Vol] 9.0 mg/dL 8.5-10.1 [facility] Serum or plasma creatinine m easurement (mass/volume)Ordered By: Woody Brunson on 07-01-2023 Creatinine [Mass/Vol] 2.12 mg/dL 0.70-1.30 [facility] Comment on above: The validity of the calculated GFR & GFRAA in patients over 70 years has not been determined. Clinical correlation is essential. Serum or plasma urea nitroge n measurement (mass/volume)Ordered By: Woody Brunson on 07-01-2023 Urea nitrogen [Mass/Vol] 44 mg/dL 7-18 [facility] Thin prep Papanicolaou smear with manual screeningOrdered By: Woody Brunson on 07-01-2023 Thin prep Papanicolaou smear with manual screening 21 U/L 15-37 [facility] Thin prep Papanicolaou smear with manual screening 5 5-15 [facility] Assessment of wrist artery p atency prior to arterial punctureOrdered By: Woody Brunson on 06-30-2023 Arterial patency Wrist artery --pre arterial puncture Positive [facility] Base excessOrdered By: Woody Brunson on 06-30-2023 Base excess Calc (BldV) [Moles/Vol] 0 mmol/L -2-2 [facility] Basophil percentageOrdered B y: Woody Brunson on 06-30-2023 Basophil percentage 24.2 mmol/L 22- [facility] Basophils/100 WBC (Bld) 97 % 95-99 [facility] Ammonia (P) [Moles/Vol] 28.0 umol/L - [facility] Basophil percentage 28.0 umol/L - [facility] Basophil percentageOrdered B y: Rigoberto Ashley on 06-30-2023 Basophil percentage 75 mg/dL <200 [facility] Basophil percentage 98 mg/dL <199 [facility] Cholesterol [Mass/Vol] 75 mg/dL <200 [facility] Comment on above: <200 mg/dL Desirable 200-240 mg/dL Borderline >240 mg/dL High Risk Triglyceride [Mass/Vol] 98 mg/dL <199 [facility] Comment on above: The drugs N-Acetylcy steine and Metamizole may falsely depress this assay.Serum Triglycerides Reference Interval Normal <150 mg/dL Borderline high 150 - 199 mg/dL High 200 - 499 mg/dL Very High > or = 500 mg/dL CO2 (BldA) [Partial pressure ]Ordered By: Woody Brunson on 06-30-2023 CO2 (Bld) [Partial pressure] 34.5 mm[Hg] 35-45 [facility] No Panel InformationOrdered By: Woody Brunson on 06-30-2023 Blood Gas Liter Flow 5.0 /min [facility] Blood Gas Sample Site R Radial [facility] Blood Gas Specimen Type ART [facility] Blood Gas Total CO2 25 mmol/L [facility] Oxygen Delivery Device Cannula [facility] ART [facility] R Radial [facility] Cannula [facility] 5.0 /min [facility] 25 mmol/L [facility] No Panel InformationOrdered By: Rigoberto Ashley on 06-30-2023 Thyroid Stimulating Hormone (TSH) 5.37 uIU/mL 0.358-3.74 [facility] 5.37 uIU/mL 0.358-3.74 [facility] Oxygen (BldA) [Partial press ure]Ordered By: Woody Brunson on 06-30-2023 Oxygen (Bld) [Partial pressure] 81 mmHG 75-100 [facility] Serum or plasma cholesterol in HDL measurement (mass/volume)Ordered By: Rigoberto Ashley on 06-30-2023 Cholesterol in HDL [Mass/Vol] 30 mg/dL >40 [facility] Comment on above: The drugs N-Acetylcy steine and Metamizole may falsely depress this assay. Reference Range HDL <40 mg/dL Low HDL Cholesterol HDL >or= 60 mg/dL High HDL Cholesterol Serum or plasma cholesterol in VLDL measurement (mass/volume)Ordered By: Rigoberto Ashley on 06-30-2023 Cholesterol in VLDL [Mass/Vol] 20 mg/dL 5-40 [facility] Serum or plasma low density lipoprotein (LDL) cholesterol measurement (mass/volume)Ordered By: Rigoberto Ashley on 06-30-2023 Cholesterol in LDL [Mass/Vol] 25 mg/dL 0-130 [facility] Whole blood hemoglobin A1c/t otal hemoglobin ratio (mass fraction)Ordered By: Rigoberto Ashley on 06-30-2023 HbA1c (Bld) [Mass fraction] 5.6 % 3.8-5.6 [facility] Comment on above: Normal < 5.7 % Predi abetic 5.7 - 6.4 % Diabetic >or= 6.5 % Please note range changes. pH measurementOrdered By: Kyler Brunson on 06-30-2023 pH (Unsp spec) 7.45 [pH] 7.35-7.45 [facility] Absolute lymphocyte countOrd ered By: Angélica Palomo on 06-29-2023 Lymphocytes Auto (Unsp spec) [#/Vol] 2.01 10*3/uL 0.83-4.51 [facility] Basophil percentageOrdered B y: Angélica Palomo on 06-29-2023 Basophil percentage 0 SEEN /hpf 0-5 [facility] Basophils/100 WBC (Bld) 0.6 % 0-1 [facility] Chloride [Moles/Vol] 107 mmol/L 98-107 [facility] Eosinophils/100 WBC (Bld) 1.4 % 0-5 [facility] Glucose [Mass/Vol] 102 mg/dL 74-106 [facility] Comment on above: Fasting Glucose resu lt from 100 to 125 mg/dL suggests IMPAIRED HOMEOSTASIS per A.D.A. criteria. Neutrophils (Bld) [#/Vol] 6.7 10*3/uL 2.0-7.7 [facility] Neutrophils/100 WBC (Bld) 70.0 % 47-70 [facility] Potassium [Moles/Vol] 4.7 mmol/L 3.5-5.1 [facility] Sodium [Moles/Vol] 141 mmol/L 136-145 [facility] WBC (Bld) [#/Vol] 9.5 10*3/uL 4.4-11.0 [facility] Basophil percentageOrdered B y: Rigoberto Ashley on 06-29-2023 Basophil percentage 3.9 mg/dL 2.5-4.9 [facility] Bilirubin Test strip Ql (U)O rdered By: Angélica Palomo on 06-29-2023 Bilirubin Ql (U) Negative Negative [facility] Blood erythrocytes count (nu mber/volume)Ordered By: Angélica Palomo on 06-29-2023 RBC (Bld) [#/Vol] 3.69 10*6/uL 4.6-6.2 [facility] Blood hemoglobin measurement (mass/volume)Ordered By: Angélica Palomo on 06-29-2023 Hemoglobin (Bld) [Mass/Vol] 11.6 g/dL 13.0-16.5 [facility] Blood lymphocytes/100 leukoc ytesOrdered By: Angélica Palomo on 06-29-2023 Lymphocytes/100 WBC (Bld) 21.1 % 19-41 [facility] Blood monocytes/100 leukocyt esOrdered By: Angélica Palomo on 06-29-2023 Monocytes/100 WBC (Bld) 6.4 % 0-10 [facility] Blood platelet mean volumeOr dered By: Anéglica Palomo on 06-29-2023 Platelet mean volume (Bld) [Entitic vol] 11.3 fL 6.2-12.0 [facility] Determination of erythrocyte mean corpuscular volume (MCV)Ordered By: Angélica Palomo on 06-29-2023 MCV (RBC) [Entitic vol] 99.5 fL 80-94 [facility] HCO3 (BldA) [Moles/Vol]Order ed By: Angélica Palomo on 06-29-2023 HCO3 (Bld) [Moles/Vol] 25 mmol/L 22-26 [facility] Hematocrit Auto (Bld) [Volum e fraction]Ordered By: Angélica Palomo on 06-29-2023 Hematocrit (Bld) [Volume fraction] 36.7 % 40-54 [facility] INR in Blood by Coagulation assayOrdered By: Angélica Palomo on 06-29-2023 INR Coag (Bld) [Relative time] 1.5 {INR} [facility] Ketones Test strip Ql (U)Ord ered By: Angélica Palomo on 06-29-2023 Ketones Ql (U) Negative Negative [facility] Laboratory - Chemistry and C hemistry - challengeOrdered By: Angélica Palomo on 06-29-2023 CO2 [Moles/Vol] 26 mmol/L 23-33 [facility] CO2 [Moles/Vol] 28.0 mmol/L 21.0-32.0 [facility] Urea nitrogen/Creatinine [Mass ratio] 19.0 mg/mg 10-20 [facility] Laboratory - Chemistry and C hemistry - challengeOrdered By: Rigoberto Ashley on 06-29-2023 Magnesium [Mass/Vol] 1.9 mg/dL 1.6-2.6 [facility] Laboratory - CoagulationOrde red By: Angélica Palomo on 06-29-2023 aPTT Coag (Bld) [Time] 40.4 s 24.1-36.2 [facility] PT Coag (PPP) [Time] 18.0 s 11.7-14.9 [facility] Laboratory - Hematology and Cell countsOrdered By: Angélica Palomo on 06-29-2023 Erythrocyte distribution width (RBC) [Entitic vol] 51.5 fL 35.1-43.9 [facility] Erythrocyte distribution width (RBC) [Ratio] 14.2 % 11.6-14.6 [facility] Immature granulocytes/100 WBC (Bld) 0.500 % 0.0-0.9 [facility] Comment on above: IG% - Immature Granu locytes (promyelocytes, myelocytes and metamyelocytes) > 1% indicates that a LEFT SHIFT is Present. MCH (RBC) [Entitic mass] 31.4 pg 27.0-32.0 [facility] Nucleated RBC/100 WBC (Bld) [Ratio] 0 % 0-5 [facility] MCHC Auto (RBC) [Mass/Vol]Or dered By: Angélica Palomo on 06-29-2023 MCHC (RBC) [Mass/Vol] 31.6 g/dL 32-36 [facility] Mucus LM Ql (Urine sed)Order ed By: Angélica Palomo on 06-29-2023 Mucus Ql (Urine sed) 0 SEEN /hpf [facility] Nitrite Test strip Ql (U)Ord ered By: Angélica Palomo on 06-29-2023 Nitrite Ql (U) Negative Negative [facility] No Panel InformationOrdered By: Angélica Palomo on 06-29-2023 Bed Mix Venous Bld PCO2 at Pat Temp 34.8 mmHg 41-51 [facility] Blood Gas Liter Flow 4.0 /min [facility] Blood Gas Specimen Type AYE [facility] Venous Blood Base Excess 1 mmol/L -1.0-3.5 [facility] 34.8 mmHg 41-51 [facility] 1 mmol/L -1.0-3.5 [facility] 93 % 50-70 [facility] 26 mmol/L 23-33 [facility] Estimated Creatinine Clearance Calc 19.98 ml/min [facility] Estimated GFR (MDRD) Amer 32 mL/min >60 [facility] Comment on above: GFR Calc Estimated GFR (MDRD) Non-Af Amer 27 mL/min >60 [facility] Comment on above: Non- GFR Calc Troponin I High Sensitivity 66 pg/mL 3.0-78.0 [facility] Comment on above: Please Note: New Meghana t Units and Gender Specific Reference Ranges. For more information see Policy Stat Procedure [place] High Sensitivity Troponin (TNIH) and attachments. 18.0 SECONDS 11.7-14.9 [facility] 40.4 Seconds 24.1-36.2 [facility] 66 pg/mL 3.0-78.0 [facility] No Panel InformationOrdered By: Rigoberto Ashley on 06-29-2023 1.9 mg/dL 1.6-2.6 [facility] PO2 venousOrdered By: Angélica Palomo on 06-29-2023 Oxygen (BldV) [Partial pressure] 64 mm[Hg] 25-40 [facility] Platelets bldOrdered By: Dee Palomo on 06-29-2023 Platelets (Bld) [#/Vol] 143 10*3/uL 150-450 [facility] Protein Test strip Ql (U)Ord ered By: Angélica Palomo on 06-29-2023 Protein Ql (U) 30 mg/dl Negative [facility] Serum or plasma calcium aubree urement (mass/volume)Ordered By: Angélica Palomo on 06-29-2023 Calcium [Mass/Vol] 9.9 mg/dL 8.5-10.1 [facility] Serum or plasma creatinine m easurement (mass/volume)Ordered By: Angélica Palomo on 06-29-2023 Creatinine [Mass/Vol] 2.48 mg/dL 0.70-1.30 [facility] Comment on above: The validity of the calculated GFR & GFRAA in patients over 70 years has not been determined. Clinical correlation is essential. Serum or plasma urea nitroge n measurement (mass/volume)Ordered By: Angélica Palomo on 06-29-2023 Urea nitrogen [Mass/Vol] 47 mg/dL 7-18 [facility] Squamous epithelial cells de tection in urine sediment by light microscopyOrdered By: Angélica Palomo on 06-29-2023 Epithelial cells.squamous LM Ql (Urine sed) 0 SEEN /hpf 0-5 [facility] Thin prep Papanicolaou smear with manual screeningOrdered By: Angélica Palomo on 06-29-2023 Thin prep Papanicolaou smear with manual screening 6 5-15 [facility] Urine blood detectionOrdered By: Angélica Palomo on 06-29-2023 RBC Ql (U) Negative Negative [facility] RBC Ql (U) 0 SEEN /hpf 0-5 [facility] Urine clarityOrdered By: Dee Palomo on 06-29-2023 Clarity (U) Clear Clear [facility] Urine color determinationOrd ered By: nAgélica Palomo on 06-29-2023 Color (U) Yellow Yellow [facility] Urine glucose detectionOrder ed By: Angélica Palomo on 06-29-2023 Glucose Ql (U) Normal mg/dl Normal [facility] Urine leukocyte esterase det ection by dipstickOrdered By: Angélica Palomo on 06-29-2023 Leukocyte esterase Test strip Ql (U) Negative Negative [facility] Urine pHOrdered By: Angélica sher on 06-29-2023 pH (U) 6.0 [pH] 5.0 - 8.0 [facility] Urine sediment bacteria coun t by microscopy (number/high power field)Ordered By: Angélica Palomo on 06-29-2023 Bacteria LM.HPF (Urine sed) [#/Area] 0 /[HPF] None Seen [facility] Urine specific gravity measu rementOrdered By: Angélica Palomo on 06-29-2023 Specific gravity (U) [Rel density] 1.015 1.002-1.030 [facility] Urobilinogen Auto test strip Ql (U)Ordered By: Angléica Palomo on 06-29-2023 Urobilinogen Ql (U) Normal mg/dl Normal [facility] Vital signsOrdered By: Senia Palomo on 06-29-2023 Oxygen saturation in Blood 93 % 50-70 [facility] pH measurementOrdered By: Phoenix Palomo on 06-29-2023 pH (Unsp spec) 7.46 [pH] 7.32-7.42 [facility] Absolute lymphocyte countOrd ered By: Pepe Au on 06-13-2023 Lymphocytes Auto (Unsp spec) [#/Vol] 1.92 10*3/uL 0.83-4.51 [facility] Basophil percentageOrdered B y: Pepe Au on 06-13-2023 Basophil percentage 3.0 mg/dL 2.5-4.9 [facility] Basophil percentage 172 mg/dL 74-106 [facility] Basophil percentage 140 mmol/L 136-145 [facility] Basophil percentage 4.6 mmol/L 3.5-5.1 [facility] Basophil percentage 110 mmol/L 98-107 [facility] Basophils (Bld) [#/Vol] 8.7 10*3/uL 4.4-11.0 [facility] Basophils (Bld) [#/Vol] 6.0 10*3/uL 2.0-7.7 [facility] Basophils/100 WBC (Bld) 0.3 % 0-1 [facility] Basophils/100 WBC (Bld) 68.6 % 47-70 [facility] Basophils/100 WBC (Bld) 1.8 % 0-5 [facility] Chloride [Moles/Vol] 110 mmol/L 98-107 [facility] Eosinophils/100 WBC (Bld) 1.8 % 0-5 [facility] Glucose [Mass/Vol] 172 mg/dL 74-106 [facility] Comment on above: Fasting Glucose resu lt greater than or equal to 126 mg/dL suggests DIABETES MELLITUS per A.D.A. criteria. Neutrophils (Bld) [#/Vol] 6.0 10*3/uL 2.0-7.7 [facility] Neutrophils/100 WBC (Bld) 68.6 % 47-70 [facility] Potassium [Moles/Vol] 4.6 mmol/L 3.5-5.1 [facility] Sodium [Moles/Vol] 140 mmol/L 136-145 [facility] WBC (Bld) [#/Vol] 8.7 10*3/uL 4.4-11.0 [facility] Blood erythrocytes count (nu mber/volume)Ordered By: Pepe Au on 06-13-2023 RBC (Bld) [#/Vol] 3.60 10*6/uL 4.6-6.2 [facility] Blood hemoglobin measurement (mass/volume)Ordered By: Pepe Au on 06-13-2023 Hemoglobin (Bld) [Mass/Vol] 11.4 g/dL 13.0-16.5 [facility] Blood lymphocytes/100 leukoc ytesOrdered By: Pepe Au on 06-13-2023 Lymphocytes/100 WBC (Bld) 22.0 % 19-41 [facility] Blood monocytes/100 leukocyt esOrdered By: Pepe Au on 06-13-2023 Monocytes/100 WBC (Bld) 7.0 % 0-10 [facility] Blood platelet mean volumeOr dered By: Pepe Au on 06-13-2023 Platelet mean volume (Bld) [Entitic vol] 10.8 fL 6.2-12.0 [facility] Determination of erythrocyte mean corpuscular volume (MCV)Ordered By: Pepe Au on 06-13-2023 MCV (RBC) [Entitic vol] 101.4 fL 80-94 [facility] Hematocrit Auto (Bld) [Volum e fraction]Ordered By: Pepe Au on 06-13-2023 Hematocrit (Bld) [Volume fraction] 36.5 % 40-54 [facility] Iron measurement (mass/mass) Ordered By: Pepe Au on 06-13-2023 Iron (Unsp spec) [Mass/Mass] 60 ug/dL 65-175 [facility] Laboratory - Chemistry and C hemistry - challengeOrdered By: Pepe Au on 06-13-2023 CO2 [Moles/Vol] 25.0 mmol/L 21.0-32.0 [facility] Urea nitrogen/Creatinine [Mass ratio] 19.7 mg/mg 10-20 [facility] Laboratory - Hematology and Cell countsOrdered By: Pepe Au on 06-13-2023 Erythrocyte distribution width (RBC) [Entitic vol] 52.5 fL 35.1-43.9 [facility] Erythrocyte distribution width (RBC) [Ratio] 14.1 % 11.6-14.6 [facility] Immature granulocytes/100 WBC (Bld) 0.300 % 0.0-0.9 [facility] Comment on above: IG% - Immature Granu locytes (promyelocytes, myelocytes and metamyelocytes) > 1% indicates that a LEFT SHIFT is Present. MCH (RBC) [Entitic mass] 31.7 pg 27.0-32.0 [facility] Nucleated RBC/100 WBC (Bld) [Ratio] 0 % 0-5 [facility] MCHC Auto (RBC) [Mass/Vol]Or dered By: Pepe Au on 06-13-2023 MCHC (RBC) [Mass/Vol] 31.2 g/dL 32-36 [facility] No Panel InformationOrdered By: Pepe Au on 06-13-2023 Estimated GFR (MDRD) Amer 28 mL/min >60 [facility] Comment on above: GFR Calc Estimated GFR (MDRD) Non-Af Amer 23 mL/min >60 [facility] Comment on above: Non- GFR Calc Total Iron Binding Capacity 258 ug/dL 250-450 [facility] 31.7 pg 27.0-32.0 [facility] 14.1 % 11.6-14.6 [facility] 52.5 fl 35.1-43.9 [facility] 0.300 % 0.0-0.9 [facility] 0 % 0-5 [facility] 23 mL/min >60 [facility] 28 mL/min >60 [facility] 19.7 RATIO 10-20 [facility] 25.0 mmol/L 21.0-32.0 [facility] 258 ug/dL 250-450 [facility] Platelets bldOrdered By: Zandra Au on 06-13-2023 Platelets (Bld) [#/Vol] 120 10*3/uL 150-450 [facility] Serum or plasma albumin aubree urement (mass/volume)Ordered By: Pepe Au on 06-13-2023 Albumin [Mass/Vol] 3.3 g/dL 3.2-5.0 [facility] Serum or plasma calcium aubree urement (mass/volume)Ordered By: Pepe Au on 06-13-2023 Calcium [Mass/Vol] 8.5 mg/dL 8.5-10.1 [facility] Serum or plasma creatinine m easurement (mass/volume)Ordered By: Pepe Au on 06-13-2023 Creatinine [Mass/Vol] 2.84 mg/dL 0.70-1.30 [facility] Comment on above: The validity of the calculated GFR & GFRAA in patients over 70 years has not been determined. Clinical correlation is essential. Serum or plasma ferritin laurie surement (mass/volume)Ordered By: Pepe Au on 06-13-2023 Ferritin [Mass/Vol] 168 ng/mL 26-388 [facility] Serum or plasma iron saturat ion measurement (mass fraction)Ordered By: Pepe Au on 06-13-2023 Iron saturation [Mass fraction] 23.3 % 15.0-55.0 [facility] Serum or plasma urea nitroge n measurement (mass/volume)Ordered By: Pepe Au on 06-13-2023 Urea nitrogen [Mass/Vol] 56 mg/dL 7-18 [facility] Absolute lymphocyte countOrd ered By: Toñito Espino on 05-26-2023 Lymphocytes Auto (Unsp spec) [#/Vol] 1.58 10*3/uL 0.83-4.51 [facility] Basophil percentageOrdered B y: Toñito Espino on 05-26-2023 Basophil percentage 3.7 mg/dL 2.5-4.9 [facility] Basophil percentage 196 mg/dL 74-106 [facility] Basophil percentage 7.8 g/dL 6.4-8.2 [facility] Basophil percentage 0.80 mg/dL 0.20-1.00 [facility] Basophil percentage 140 mmol/L 136-145 [facility] Basophil percentage 4.7 mmol/L 3.5-5.1 [facility] Basophil percentage 107 mmol/L 98-107 [facility] Basophils (Bld) [#/Vol] 8.7 10*3/uL 4.4-11.0 [facility] Basophils (Bld) [#/Vol] 6.5 10*3/uL 2.0-7.7 [facility] Basophils/100 WBC (Bld) 0.5 % 0-1 [facility] Basophils/100 WBC (Bld) 74.3 % 47-70 [facility] Basophils/100 WBC (Bld) 1.3 % 0-5 [facility] Bilirubin [Mass/Vol] 0.80 mg/dL 0.20-1.00 [facility] Comment on above: For patients on eltr ombopag therapy, use of Dimension [place] TBIL is not recommended. Chloride [Moles/Vol] 107 mmol/L 98-107 [facility] Eosinophils/100 WBC (Bld) 1.3 % 0-5 [facility] Glucose [Mass/Vol] 196 mg/dL 74-106 [facility] Comment on above: Fasting Glucose resu lt greater than or equal to 126 mg/dL suggests DIABETES MELLITUS per A.D.A. criteria. Neutrophils (Bld) [#/Vol] 6.5 10*3/uL 2.0-7.7 [facility] Neutrophils/100 WBC (Bld) 74.3 % 47-70 [facility] Potassium [Moles/Vol] 4.7 mmol/L 3.5-5.1 [facility] Protein [Mass/Vol] 7.8 g/dL 6.4-8.2 [facility] Sodium [Moles/Vol] 140 mmol/L 136-145 [facility] WBC (Bld) [#/Vol] 8.7 10*3/uL 4.4-11.0 [facility] Blood erythrocytes count (nu mber/volume)Ordered By: Toñito Espino on 05-26-2023 RBC (Bld) [#/Vol] 3.52 10*6/uL 4.6-6.2 [facility] Blood hemoglobin measurement (mass/volume)Ordered By: Toñito Espino on 05-26-2023 Hemoglobin (Bld) [Mass/Vol] 11.1 g/dL 13.0-16.5 [facility] Blood lymphocytes/100 leukoc ytesOrdered By: Toñito Espino on 05-26-2023 Lymphocytes/100 WBC (Bld) 18.1 % 19-41 [facility] Blood monocytes/100 leukocyt esOrdered By: Toñito Espino on 05-26-2023 Monocytes/100 WBC (Bld) 5.3 % 0-10 [facility] Blood platelet mean volumeOr dered By: Toñito Espino on 05-26-2023 Platelet mean volume (Bld) [Entitic vol] 11.6 fL 6.2-12.0 [facility] Determination of erythrocyte mean corpuscular volume (MCV)Ordered By: Toñito Espino on 05-26-2023 MCV (RBC) [Entitic vol] 101.1 fL 80-94 [facility] Hematocrit Auto (Bld) [Volum e fraction]Ordered By: Toñito Espino on 05-26-2023 Hematocrit (Bld) [Volume fraction] 35.6 % 40-54 [facility] Iron measurement (mass/mass) Ordered By: Toñito Espino on 05-26-2023 Iron (Unsp spec) [Mass/Mass] 75 ug/dL 65-175 [facility] Laboratory - Chemistry and C hemistry - challengeOrdered By: Toñito Espino on 05-26-2023 ALP [Catalytic activity/Vol] 134 U/L 45-117 [facility] ALT [Catalytic activity/Vol] 14 U/L 16-61 [facility] CO2 [Moles/Vol] 27.0 mmol/L 21.0-32.0 [facility] Globulin (S) [Mass/Vol] 4.6 g/dL 2.2-4.2 [facility] Urea nitrogen/Creatinine [Mass ratio] 19.9 mg/mg 10- [facility] Laboratory - Hematology and Cell countsOrdered By: Toñito Espino on 05-26-2023 Erythrocyte distribution width (RBC) [Entitic vol] 51.8 fL 35.1-43.9 [facility] Erythrocyte distribution width (RBC) [Ratio] 14.2 % 11.6-14.6 [facility] Immature granulocytes/100 WBC (Bld) 0.500 % 0.0-0.9 [facility] Comment on above: IG% - Immature Granu locytes (promyelocytes, myelocytes and metamyelocytes) > 1% indicates that a LEFT SHIFT is Present. MCH (RBC) [Entitic mass] 31.5 pg 27.0-32.0 [facility] Nucleated RBC/100 WBC (Bld) [Ratio] 0 % 0-5 [facility] MCHC Auto (RBC) [Mass/Vol]Or dered By: Toñito Espino on 05-26-2023 MCHC (RBC) [Mass/Vol] 31.2 g/dL 32-36 [facility] No Panel InformationOrdered By: Toñito Espino on 05-26-2023 Estimated GFR (MDRD) Amer 26 mL/min >60 [facility] Comment on above: GFR Calc Estimated GFR (MDRD) Non-Af Amer 21 mL/min >60 [facility] Comment on above: Non- GFR Calc Parathyroid Hormone (Intact) 20.3 pg/mL 18.4-80.1 [facility] Thyroid Stimulating Hormone (TSH) 4.65 uIU/mL 0.358-3.74 [facility] Total Iron Binding Capacity 278 ug/dL 250-450 [facility] 31.5 pg 27.0-32.0 [facility] 14.2 % 11.6-14.6 [facility] 51.8 fl 35.1-43.9 [facility] 0.500 % 0.0-0.9 [facility] 0 % 0-5 [facility] 21 mL/min >60 [facility] 26 mL/min >60 [facility] 19.9 RATIO 10- [facility] 4.6 g/dL 2.2-4.2 [facility] 134 U/L 45-117 [facility] 14 U/L 16-61 [facility] 27.0 mmol/L 21.0-32.0 [facility] 4.65 uIU/mL 0.358-3.74 [facility] 278 ug/dL 250-450 [facility] 20.3 pg/mL 18.4-80.1 [facility] Platelets bldOrdered By: Sujit Espino on 05-26-2023 Platelets (Bld) [#/Vol] 130 10*3/uL 150-450 [facility] Serum or plasma albumin aburee urement (mass/volume)Ordered By: Toñito Espino on 05-26-2023 Albumin [Mass/Vol] 3.2 g/dL 3.2-5.0 [facility] Serum or plasma albumin/glob ulin mass ratioOrdered By: Toñito Espino on 05-26-2023 Albumin/Globulin [Mass ratio] 0.7 {ratio} 0.9-2.4 [facility] Serum or plasma calcium aubree urement (mass/volume)Ordered By: Toñito Espino on 05-26-2023 Calcium [Mass/Vol] 9.3 mg/dL 8.5-10.1 [facility] Serum or plasma creatinine m easurement (mass/volume)Ordered By: Toñito Espino on 05-26-2023 Creatinine [Mass/Vol] 3.02 mg/dL 0.70-1.30 [facility] Comment on above: The validity of the calculated GFR & GFRAA in patients over 70 years has not been determined. Clinical correlation is essential. Serum or plasma ferritin laurie surement (mass/volume)Ordered By: Toñito Espino on 05-26-2023 Ferritin [Mass/Vol] 151 ng/mL 26-388 [facility] Serum or plasma iron saturat ion measurement (mass fraction)Ordered By: Toñito Espino on 05-26-2023 Iron saturation [Mass fraction] 27.0 % 15.0-55.0 [facility] Serum or plasma urea nitroge n measurement (mass/volume)Ordered By: Toñito Espino on 05-26-2023 Urea nitrogen [Mass/Vol] 60 mg/dL 7-18 [facility] Thin prep Papanicolaou smear with manual screeningOrdered By: Toñito Espino on 05-26-2023 Thin prep Papanicolaou smear with manual screening 15 U/L 15-37 [facility] Thin prep Papanicolaou smear with manual screening 6 5-15 [facility] Urine creatinine measurement (mass/volume)Ordered By: Toñito Espino on 05-26-2023 Creatinine (U) [Mass/Vol] 84.50 mg/dL NO RANGE EST. [facility] Urine protein measurement (m ass/volume)Ordered By: Toñito Espino on 05-26-2023 Protein (U) [Mass/Vol] 58.6 mg/dL 0.0-11.8 [facility] Urine protein/creatinine mas s ratioOrdered By: Toñito Espino on 05-26-2023 Protein/Creatinine (U) [Mass ratio] 693 mg/g CRE 0-200 [facility] Whole blood hemoglobin A1c/t otal hemoglobin ratio (mass fraction)Ordered By: Toñito Espino on 05-26-2023 HbA1c (Bld) [Mass fraction] 5.5 % 3.8-5.6 [facility] Comment on above: Normal < 5.7 % Predi abetic 5.7 - 6.4 % Diabetic >or= 6.5 % Please note range changes. Absolute lymphocyte countOrd ered By: Dr. Au on 05-16-2023 Lymphocytes Auto (Unsp spec) [#/Vol] 2.23 10*3/uL 0.83-4.51 [facility] Basophil percentageOrdered B y: Dr. Au on 05-16-2023 Basophil percentage 3.8 mg/dL 2.5-4.9 [facility] Basophils/100 WBC (Bld) 0.5 % 0-1 [facility] Chloride [Moles/Vol] 110 mmol/L 98-107 [facility] Eosinophils/100 WBC (Bld) 2.4 % 0-5 [facility] Glucose [Mass/Vol] 163 mg/dL 74-106 [facility] Comment on above: Fasting Glucose resu lt greater than or equal to 126 mg/dL suggests DIABETES MELLITUS per A.D.A. criteria. Neutrophils (Bld) [#/Vol] 6.0 10*3/uL 2.0-7.7 [facility] Neutrophils/100 WBC (Bld) 66.1 % 47-70 [facility] Potassium [Moles/Vol] 4.6 mmol/L 3.5-5.1 [facility] Sodium [Moles/Vol] 141 mmol/L 136-145 [facility] WBC (Bld) [#/Vol] 9.1 10*3/uL 4.4-11.0 [facility] Basophil percentageOrdered B y: Pepe Au on 05-16-2023 Basophil percentage 163 mg/dL 74-106 [facility] Basophil percentage 141 mmol/L 136-145 [facility] Basophil percentage 4.6 mmol/L 3.5-5.1 [facility] Basophil percentage 110 mmol/L 98-107 [facility] Basophils (Bld) [#/Vol] 9.1 10*3/uL 4.4-11.0 [facility] Basophils (Bld) [#/Vol] 6.0 10*3/uL 2.0-7.7 [facility] Basophils/100 WBC (Bld) 66.1 % 47-70 [facility] Basophils/100 WBC (Bld) 2.4 % 0-5 [facility] Blood erythrocytes count (nu mber/volume)Ordered By: Dr. Au on 05-16-2023 RBC (Bld) [#/Vol] 3.57 10*6/uL 4.6-6.2 [facility] Blood hemoglobin measurement (mass/volume)Ordered By: Dr. Au on 05-16-2023 Hemoglobin (Bld) [Mass/Vol] 11.2 g/dL 13.0-16.5 [facility] Blood lymphocytes/100 leukoc ytesOrdered By: Dr. Au on 05-16-2023 Lymphocytes/100 WBC (Bld) 24.5 % 19-41 [facility] Blood monocytes/100 leukocyt esOrdered By: Dr. Au on 05-16-2023 Monocytes/100 WBC (Bld) 6.1 % 0-10 [facility] Blood platelet mean volumeOr dered By: Dr. Au on 05-16-2023 Platelet mean volume (Bld) [Entitic vol] 10.3 fL 6.2-12.0 [facility] Determination of erythrocyte mean corpuscular volume (MCV)Ordered By: Dr. Au on 05-16-2023 MCV (RBC) [Entitic vol] 100.0 fL 80-94 [facility] Hematocrit Auto (Bld) [Volum e fraction]Ordered By: Dr. Au on 05-16-2023 Hematocrit (Bld) [Volume fraction] 35.7 % 40-54 [facility] Iron measurement (mass/mass) Ordered By: Dr. Au on 05-16-2023 Iron (Unsp spec) [Mass/Mass] 70 ug/dL 65-175 [facility] Laboratory - Chemistry and C hemistry - challengeOrdered By: Dr. Au on 05-16-2023 CO2 [Moles/Vol] 25.0 mmol/L 21.0-32.0 [facility] Urea nitrogen/Creatinine [Mass ratio] 21.5 mg/mg 10-20 [facility] Laboratory - Hematology and Cell countsOrdered By: Dr. Au on 05-16-2023 Erythrocyte distribution width (RBC) [Entitic vol] 52.7 fL 35.1-43.9 [facility] Erythrocyte distribution width (RBC) [Ratio] 14.5 % 11.6-14.6 [facility] Immature granulocytes/100 WBC (Bld) 0.400 % 0.0-0.9 [facility] Comment on above: IG% - Immature Granu locytes (promyelocytes, myelocytes and metamyelocytes) > 1% indicates that a LEFT SHIFT is Present. MCH (RBC) [Entitic mass] 31.4 pg 27.0-32.0 [facility] Nucleated RBC/100 WBC (Bld) [Ratio] 0 % 0-5 [facility] MCHC Auto (RBC) [Mass/Vol]Or dered By: Dr. Au on 05-16-2023 MCHC (RBC) [Mass/Vol] 31.4 g/dL 32-36 [facility] No Panel InformationOrdered By: Dr. Au on 05-16-2023 Estimated GFR (MDRD) Amer 26 mL/min >60 [facility] Comment on above: GFR Calc Estimated GFR (MDRD) Non-Af Amer 22 mL/min >60 [facility] Comment on above: Non- GFR Calc Parathyroid Hormone (Intact) 55.0 pg/mL 18.4-80.1 [facility] Total Iron Binding Capacity 231 ug/dL 250-450 [facility] No Panel InformationOrdered By: Pepe Au on 05-16-2023 31.4 pg 27.0-32.0 [facility] 14.5 % 11.6-14.6 [facility] 52.7 fl 35.1-43.9 [facility] 0.400 % 0.0-0.9 [facility] 0 % 0-5 [facility] 22 mL/min >60 [facility] 26 mL/min >60 [facility] 21.5 RATIO 10-20 [facility] 25.0 mmol/L 21.0-32.0 [facility] 231 ug/dL 250-450 [facility] 55.0 pg/mL 18.4-80.1 [facility] Platelets bldOrdered By: Dr. Au on 05-16-2023 Platelets (Bld) [#/Vol] 132 10*3/uL 150-450 [facility] Serum or plasma albumin aubree urement (mass/volume)Ordered By: Dr. Au on 05-16-2023 Albumin [Mass/Vol] 3.2 g/dL 3.2-5.0 [facility] Serum or plasma calcium aubree urement (mass/volume)Ordered By: Dr. Au on 05-16-2023 Calcium [Mass/Vol] 9.1 mg/dL 8.5-10.1 [facility] Serum or plasma creatinine m easurement (mass/volume)Ordered By: Dr. Au on 05-16-2023 Creatinine [Mass/Vol] 2.97 mg/dL 0.70-1.30 [facility] Comment on above: The validity of the calculated GFR & GFRAA in patients over 70 years has not been determined. Clinical correlation is essential. Serum or plasma ferritin laurie surement (mass/volume)Ordered By: Dr. Au on 05-16-2023 Ferritin [Mass/Vol] 154 ng/mL 26-388 [facility] Serum or plasma iron saturat ion measurement (mass fraction)Ordered By: Dr. Au on 05-16-2023 Iron saturation [Mass fraction] 30.3 % 15.0-55.0 [facility] Serum or plasma urea nitroge n measurement (mass/volume)Ordered By: Dr. Au on 05-16-2023 Urea nitrogen [Mass/Vol] 64 mg/dL 7-18 [facility] No Panel Informationon 05-12 Culture Urine <10,000 cfu/ml. No Significant growth. Sensitivity not indicated. [facility] Work Phone: Absolute lymphocyte countOrd ered By: Dr. Au on 04-18-2023 Lymphocytes Auto (Unsp spec) [#/Vol] 1.93 10*3/uL 0.83-4.51 [facility] Basophil percentageOrdered B y: Dr. Au on 04-18-2023 Basophil percentage 4.0 mg/dL 2.5-4.9 [facility] Basophils/100 WBC (Bld) 0.2 % 0-1 [facility] Chloride [Moles/Vol] 107 mmol/L 98-107 [facility] Eosinophils/100 WBC (Bld) 1.9 % 0-5 [facility] Glucose [Mass/Vol] 144 mg/dL 74-106 [facility] Comment on above: Fasting Glucose resu lt greater than or equal to 126 mg/dL suggests DIABETES MELLITUS per A.D.A. criteria. Neutrophils (Bld) [#/Vol] 5.7 10*3/uL 2.0-7.7 [facility] Neutrophils/100 WBC (Bld) 68.4 % 47-70 [facility] Potassium [Moles/Vol] 4.3 mmol/L 3.5-5.1 [facility] Sodium [Moles/Vol] 141 mmol/L 136-145 [facility] WBC (Bld) [#/Vol] 8.4 10*3/uL 4.4-11.0 [facility] Basophil percentageOrdered B y: Pepe Au on 04-18-2023 Basophil percentage 144 mg/dL 74-106 [facility] Basophil percentage 141 mmol/L 136-145 [facility] Basophil percentage 4.3 mmol/L 3.5-5.1 [facility] Basophil percentage 107 mmol/L 98-107 [facility] Basophils (Bld) [#/Vol] 8.4 10*3/uL 4.4-11.0 [facility] Basophils (Bld) [#/Vol] 5.7 10*3/uL 2.0-7.7 [facility] Basophils/100 WBC (Bld) 68.4 % 47-70 [facility] Basophils/100 WBC (Bld) 1.9 % 0-5 [facility] Blood erythrocytes count (nu mber/volume)Ordered By: Dr. Au on 04-18-2023 RBC (Bld) [#/Vol] 3.61 10*6/uL 4.6-6.2 [facility] Blood hemoglobin measurement (mass/volume)Ordered By: Dr. Au on 04-18-2023 Hemoglobin (Bld) [Mass/Vol] 11.3 g/dL 13.0-16.5 [facility] Blood lymphocytes/100 leukoc ytesOrdered By: Dr. Au on 04-18-2023 Lymphocytes/100 WBC (Bld) 23.0 % 19-41 [facility] Blood monocytes/100 leukocyt esOrdered By: Dr. Au on 04-18-2023 Monocytes/100 WBC (Bld) 6.1 % 0-10 [facility] Blood platelet mean volumeOr dered By: Dr. Au on 04-18-2023 Platelet mean volume (Bld) [Entitic vol] 10.9 fL 6.2-12.0 [facility] Determination of erythrocyte mean corpuscular volume (MCV)Ordered By: Dr. Au on 04-18-2023 MCV (RBC) [Entitic vol] 99.2 fL 80-94 [facility] Hematocrit Auto (Bld) [Volum e fraction]Ordered By: Dr. Au on 04-18-2023 Hematocrit (Bld) [Volume fraction] 35.8 % 40-54 [facility] Iron measurement (mass/mass) Ordered By: Dr. Au on 04-18-2023 Iron (Unsp spec) [Mass/Mass] 59 ug/dL 65-175 [facility] Laboratory - Chemistry and C hemistry - challengeOrdered By: Dr. Au on 04-18-2023 CO2 [Moles/Vol] 27.0 mmol/L 21.0-32.0 [facility] Urea nitrogen/Creatinine [Mass ratio] 23.6 mg/mg 10- [facility] Laboratory - Hematology and Cell countsOrdered By: Dr. Au on 04-18-2023 Erythrocyte distribution width (RBC) [Entitic vol] 50.5 fL 35.1-43.9 [facility] Erythrocyte distribution width (RBC) [Ratio] 14.0 % 11.6-14.6 [facility] Immature granulocytes/100 WBC (Bld) 0.400 % 0.0-0.9 [facility] Comment on above: IG% - Immature Granu locytes (promyelocytes, myelocytes and metamyelocytes) > 1% indicates that a LEFT SHIFT is Present. MCH (RBC) [Entitic mass] 31.3 pg 27.0-32.0 [facility] Nucleated RBC/100 WBC (Bld) [Ratio] 0 % 0-5 [facility] MCHC Auto (RBC) [Mass/Vol]Or dered By: Dr. Au on 04-18-2023 MCHC (RBC) [Mass/Vol] 31.6 g/dL 32-36 [facility] No Panel InformationOrdered By: Dr. Au on 04-18-2023 Estimated GFR (MDRD) Amer 25 mL/min >60 [facility] Comment on above: GFR Calc Estimated GFR (MDRD) Non-Af Amer 21 mL/min >60 [facility] Comment on above: Non- GFR Calc Total Iron Binding Capacity 244 ug/dL 250-450 [facility] No Panel InformationOrdered By: Pepe Au on 04-18-2023 31.3 pg 27.0-32.0 [facility] 14.0 % 11.6-14.6 [facility] 50.5 fl 35.1-43.9 [facility] 0.400 % 0.0-0.9 [facility] 0 % 0-5 [facility] 21 mL/min >60 [facility] 25 mL/min >60 [facility] 23.6 RATIO 10- [facility] 27.0 mmol/L 21.0-32.0 [facility] 244 ug/dL 250-450 [facility] Platelets bldOrdered By: Dr. Au on 04-18-2023 Platelets (Bld) [#/Vol] 136 10*3/uL 150-450 [facility] Serum or plasma albumin aubree urement (mass/volume)Ordered By: Dr. Au on 04-18-2023 Albumin [Mass/Vol] 3.2 g/dL 3.2-5.0 [facility] Serum or plasma calcium aubree urement (mass/volume)Ordered By: Dr. Au on 04-18-2023 Calcium [Mass/Vol] 8.9 mg/dL 8.5-10.1 [facility] Serum or plasma creatinine m easurement (mass/volume)Ordered By: Dr. Au on 04-18-2023 Creatinine [Mass/Vol] 3.09 mg/dL 0.70-1.30 [facility] Comment on above: The validity of the calculated GFR & GFRAA in patients over 70 years has not been determined. Clinical correlation is essential. Serum or plasma ferritin laurie surement (mass/volume)Ordered By: Dr. Au on 04-18-2023 Ferritin [Mass/Vol] 184 ng/mL 26-388 [facility] Serum or plasma iron saturat ion measurement (mass fraction)Ordered By: Dr. Au on 04-18-2023 Iron saturation [Mass fraction] 24.2 % 15.0-55.0 [facility] Serum or plasma urea nitroge n measurement (mass/volume)Ordered By: Dr. Au on 04-18-2023 Urea nitrogen [Mass/Vol] 73 mg/dL 7-18 [facility] Absolute lymphocyte countOrd ered By: Dr. Au on 03-21-2023 Lymphocytes Auto (Unsp spec) [#/Vol] 2.09 10*3/uL 0.83-4.51 [facility] Basophil percentageOrdered B y: Dr. Au on 03-21-2023 Basophil percentage 3.2 mg/dL 2.5-4.9 [facility] Basophils/100 WBC (Bld) 0.6 % 0-1 [facility] Chloride [Moles/Vol] 107 mmol/L 98-107 [facility] Eosinophils/100 WBC (Bld) 3.1 % 0-5 [facility] Glucose [Mass/Vol] 151 mg/dL 74-106 [facility] Comment on above: Fasting Glucose resu lt greater than or equal to 126 mg/dL suggests DIABETES MELLITUS per A.D.A. criteria. Neutrophils (Bld) [#/Vol] 6.0 10*3/uL 2.0-7.7 [facility] Neutrophils/100 WBC (Bld) 66.3 % 47-70 [facility] Potassium [Moles/Vol] 4.4 mmol/L 3.5-5.1 [facility] Sodium [Moles/Vol] 137 mmol/L 136-145 [facility] WBC (Bld) [#/Vol] 9.1 10*3/uL 4.4-11.0 [facility] Basophil percentageOrdered B y: Pepe Au on 03-21-2023 Basophil percentage 151 mg/dL 74-106 [facility] Basophil percentage 137 mmol/L 136-145 [facility] Basophil percentage 4.4 mmol/L 3.5-5.1 [facility] Basophil percentage 107 mmol/L 98-107 [facility] Basophils (Bld) [#/Vol] 9.1 10*3/uL 4.4-11.0 [facility] Basophils (Bld) [#/Vol] 6.0 10*3/uL 2.0-7.7 [facility] Basophils/100 WBC (Bld) 66.3 % 47-70 [facility] Basophils/100 WBC (Bld) 3.1 % 0-5 [facility] Blood erythrocytes count (nu mber/volume)Ordered By: Dr. Au on 03-21-2023 RBC (Bld) [#/Vol] 3.57 10*6/uL 4.6-6.2 [facility] Blood hemoglobin measurement (mass/volume)Ordered By: Dr. Au on 03-21-2023 Hemoglobin (Bld) [Mass/Vol] 11.3 g/dL 13.0-16.5 [facility] Blood lymphocytes/100 leukoc ytesOrdered By: Dr. Au on 03-21-2023 Lymphocytes/100 WBC (Bld) 23.0 % 19-41 [facility] Blood monocytes/100 leukocyt esOrdered By: Dr. Au on 03-21-2023 Monocytes/100 WBC (Bld) 6.7 % 0-10 [facility] Blood platelet mean volumeOr dered By: Dr. Au on 03-21-2023 Platelet mean volume (Bld) [Entitic vol] 10.1 fL 6.2-12.0 [facility] Determination of erythrocyte mean corpuscular volume (MCV)Ordered By: Dr. Au on 03-21-2023 MCV (RBC) [Entitic vol] 100.0 fL 80-94 [facility] Hematocrit Auto (Bld) [Volum e fraction]Ordered By: Dr. Au on 03-21-2023 Hematocrit (Bld) [Volume fraction] 35.7 % 40-54 [facility] Iron measurement (mass/mass) Ordered By: Dr. Au on 03-21-2023 Iron (Unsp spec) [Mass/Mass] 88 ug/dL 65-175 [facility] Laboratory - Chemistry and C hemistry - challengeOrdered By: Dr. Au on 03-21-2023 CO2 [Moles/Vol] 27.0 mmol/L 21.0-32.0 [facility] Urea nitrogen/Creatinine [Mass ratio] 23.1 mg/mg 10-20 [facility] Laboratory - Hematology and Cell countsOrdered By: Dr. Au on 03-21-2023 Erythrocyte distribution width (RBC) [Entitic vol] 52.0 fL 35.1-43.9 [facility] Erythrocyte distribution width (RBC) [Ratio] 14.2 % 11.6-14.6 [facility] Immature granulocytes/100 WBC (Bld) 0.300 % 0.0-0.9 [facility] Comment on above: IG% - Immature Granu locytes (promyelocytes, myelocytes and metamyelocytes) > 1% indicates that a LEFT SHIFT is Present. MCH (RBC) [Entitic mass] 31.7 pg 27.0-32.0 [facility] Nucleated RBC/100 WBC (Bld) [Ratio] 0 % 0-5 [facility] MCHC Auto (RBC) [Mass/Vol]Or dered By: Dr. Au on 03-21-2023 MCHC (RBC) [Mass/Vol] 31.7 g/dL 32-36 [facility] No Panel InformationOrdered By: Dr. Au on 03-21-2023 Estimated GFR (MDRD) Amer 28 mL/min >60 [facility] Comment on above: GFR Calc Estimated GFR (MDRD) Non-Af Amer 23 mL/min >60 [facility] Comment on above: Non- GFR Calc Parathyroid Hormone (Intact) 35.6 pg/mL 18.4-80.1 [facility] Total Iron Binding Capacity 224 ug/dL 250-450 [facility] No Panel InformationOrdered By: Pepe Au on 03-21-2023 31.7 pg 27.0-32.0 [facility] 14.2 % 11.6-14.6 [facility] 52.0 fl 35.1-43.9 [facility] 0.300 % 0.0-0.9 [facility] 0 % 0-5 [facility] 23 mL/min >60 [facility] 28 mL/min >60 [facility] 23.1 RATIO 10-20 [facility] 27.0 mmol/L 21.0-32.0 [facility] 224 ug/dL 250-450 [facility] 35.6 pg/mL 18.4-80.1 [facility] Platelets bldOrdered By: Dr. Au on 03-21-2023 Platelets (Bld) [#/Vol] 130 10*3/uL 150-450 [facility] Serum or plasma albumin aubree urement (mass/volume)Ordered By: Dr. Au on 03-21-2023 Albumin [Mass/Vol] 3.3 g/dL 3.2-5.0 [facility] Serum or plasma calcium aubree urement (mass/volume)Ordered By: Dr. Au on 03-21-2023 Calcium [Mass/Vol] 9.6 mg/dL 8.5-10.1 [facility] Serum or plasma creatinine m easurement (mass/volume)Ordered By: Dr. Au on 03-21-2023 Creatinine [Mass/Vol] 2.81 mg/dL 0.70-1.30 [facility] Comment on above: The validity of the calculated GFR & GFRAA in patients over 70 years has not been determined. Clinical correlation is essential. Serum or plasma ferritin laurie surement (mass/volume)Ordered By: Dr. Au on 03-21-2023 Ferritin [Mass/Vol] 178 ng/mL 26-388 [facility] Serum or plasma iron saturat ion measurement (mass fraction)Ordered By: Dr. Au on 03-21-2023 Iron saturation [Mass fraction] 39.3 % 15.0-55.0 [facility] Serum or plasma urea nitroge n measurement (mass/volume)Ordered By: Dr. Au on 03-21-2023 Urea nitrogen [Mass/Vol] 65 mg/dL 7-18 [facility] Basophil percentageOrdered B y: Dr. Au on 02-21-2023 Basophil percentage 2.8 mg/dL 2.5-4.9 [facility] Bilirubin [Mass/Vol] 0.70 mg/dL 0.20-1.00 [facility] Comment on above: For patients on eltr ombopag therapy, use of Dimension [place] TBIL is not recommended. Chloride [Moles/Vol] 107 mmol/L 98-107 [facility] Cholesterol [Mass/Vol] 88 mg/dL <200 [facility] Comment on above: <200 mg/dL Desirable 200-240 mg/dL Borderline >240 mg/dL High Risk Glucose [Mass/Vol] 167 mg/dL 74-106 [facility] Comment on above: Fasting Glucose resu lt greater than or equal to 126 mg/dL suggests DIABETES MELLITUS per A.D.A. criteria. Potassium [Moles/Vol] 4.3 mmol/L 3.5-5.1 [facility] Protein [Mass/Vol] 7.6 g/dL 6.4-8.2 [facility] Sodium [Moles/Vol] 137 mmol/L 136-145 [facility] Triglyceride [Mass/Vol] 93 mg/dL <199 [facility] Comment on above: The drugs N-Acetylcy steine and Metamizole may falsely depress this assay.Serum Triglycerides Reference Interval Normal <150 mg/dL Borderline high 150 - 199 mg/dL High 200 - 499 mg/dL Very High > or = 500 mg/dL WBC (Bld) [#/Vol] 8.7 10*3/uL 4.4-11.0 [facility] Blood erythrocytes count (nu mber/volume)Ordered By: Dr. Au on 02-21-2023 RBC (Bld) [#/Vol] 3.38 10*6/uL 4.6-6.2 [facility] Blood hemoglobin measurement (mass/volume)Ordered By: Dr. Au on 02-21-2023 Hemoglobin (Bld) [Mass/Vol] 10.7 g/dL 13.0-16.5 [facility] Blood platelet mean volumeOr dered By: Dr. Au on 02-21-2023 Platelet mean volume (Bld) [Entitic vol] 10.6 fL 6.2-12.0 [facility] Determination of erythrocyte mean corpuscular volume (MCV)Ordered By: Dr. Au on 02-21-2023 MCV (RBC) [Entitic vol] 98.2 fL 80-94 [facility] Hematocrit Auto (Bld) [Volum e fraction]Ordered By: Dr. Au on 02-21-2023 Hematocrit (Bld) [Volume fraction] 33.2 % 40-54 [facility] Iron measurement (mass/mass) Ordered By: Dr. Au on 02-21-2023 Iron (Unsp spec) [Mass/Mass] 49 ug/dL 65-175 [facility] Laboratory - Chemistry and C hemistry - challengeOrdered By: Dr. Au on 02-21-2023 ALP [Catalytic activity/Vol] 137 U/L 45-117 [facility] ALT [Catalytic activity/Vol] 14 U/L 16-61 [facility] CO2 [Moles/Vol] 24.0 mmol/L 21.0-32.0 [facility] Globulin (S) [Mass/Vol] 4.5 g/dL 2.2-4.2 [facility] Urea nitrogen/Creatinine [Mass ratio] 17.2 mg/mg 10-20 [facility] Laboratory - Hematology and Cell countsOrdered By: Dr. Au on 02-21-2023 Erythrocyte distribution width (RBC) [Entitic vol] 52.2 fL 35.1-43.9 [facility] Erythrocyte distribution width (RBC) [Ratio] 14.5 % 11.6-14.6 [facility] MCH (RBC) [Entitic mass] 31.7 pg 27.0-32.0 [facility] MCHC Auto (RBC) [Mass/Vol]Or dered By: Dr. Au on 02-21-2023 MCHC (RBC) [Mass/Vol] 32.2 g/dL 32-36 [facility] No Panel InformationOrdered By: Dr. Au on 02-21-2023 Estimated GFR (MDRD) Amer 23 mL/min >60 [facility] Comment on above: GFR Calc Estimated GFR (MDRD) Non-Af Amer 19 mL/min >60 [facility] Comment on above: Non- GFR Calc Thyroid Stimulating Hormone (TSH) 4.77 uIU/mL 0.358-3.74 [facility] Total Iron Binding Capacity 201 ug/dL 250-450 [facility] Platelets bldOrdered By: Dr. Au on 02-21-2023 Platelets (Bld) [#/Vol] 147 10*3/uL 150-450 [facility] Serum or plasma albumin aubree urement (mass/volume)Ordered By: Dr. Au on 02-21-2023 Albumin [Mass/Vol] 3.1 g/dL 3.2-5.0 [facility] Serum or plasma albumin/glob ulin mass ratioOrdered By: Dr. Au on 02-21-2023 Albumin/Globulin [Mass ratio] 0.7 {ratio} 0.9-2.4 [facility] Serum or plasma calcium aubree urement (mass/volume)Ordered By: Dr. Au on 02-21-2023 Calcium [Mass/Vol] 8.5 mg/dL 8.5-10.1 [facility] Serum or plasma cholesterol in HDL measurement (mass/volume)Ordered By: Dr. Au on 02-21-2023 Cholesterol in HDL [Mass/Vol] 30 mg/dL >40 [facility] Comment on above: The drugs N-Acetylcy steine and Metamizole may falsely depress this assay. Reference Range HDL <40 mg/dL Low HDL Cholesterol HDL >or= 60 mg/dL High HDL Cholesterol Serum or plasma cholesterol in VLDL measurement (mass/volume)Ordered By: Dr. Au on 02-21-2023 Cholesterol in VLDL [Mass/Vol] 19 mg/dL 5-40 [facility] Serum or plasma creatinine m easurement (mass/volume)Ordered By: Dr. Au on 02-21-2023 Creatinine [Mass/Vol] 3.37 mg/dL 0.70-1.30 [facility] Comment on above: The validity of the calculated GFR & GFRAA in patients over 70 years has not been determined. Clinical correlation is essential. Serum or plasma ferritin laurie surement (mass/volume)Ordered By: Dr. Au on 02-21-2023 Ferritin [Mass/Vol] 167 ng/mL 26-388 [facility] Serum or plasma iron saturat ion measurement (mass fraction)Ordered By: Dr. Au on 02-21-2023 Iron saturation [Mass fraction] 24.4 % 15.0-55.0 [facility] Serum or plasma low density lipoprotein (LDL) cholesterol measurement (mass/volume)Ordered By: Dr. uA on 02-21-2023 Cholesterol in LDL [Mass/Vol] 39 mg/dL 0-130 [facility] Serum or plasma urea nitroge n measurement (mass/volume)Ordered By: Dr. Au on 02-21-2023 Urea nitrogen [Mass/Vol] 58 mg/dL 7-18 [facility] Thin prep Papanicolaou smear with manual screeningOrdered By: Dr. Au on 02-21-2023 Thin prep Papanicolaou smear with manual screening 14 U/L 15-37 [facility] Thin prep Papanicolaou smear with manual screening 6 5-15 [facility] Whole blood hemoglobin A1c/t otal hemoglobin ratio (mass fraction)Ordered By: Dr. Au on 02-21-2023 HbA1c (Bld) [Mass fraction] 5.6 % 3.8-5.6 [facility] Comment on above: Normal < 5.7 % Predi abetic 5.7 - 6.4 % Diabetic >or= 6.5 % Please note range changes. Absolute lymphocyte countOrd ered By: Dr. Au on 01-31-2023 Lymphocytes Auto (Unsp spec) [#/Vol] 1.94 10*3/uL 0.83-4.51 [facility] Basophil percentageOrdered B y: Dr. Au on 01-31-2023 Basophil percentage 4.1 mg/dL 2.5-4.9 [facility] Basophils/100 WBC (Bld) 0.5 % 0-1 [facility] Chloride [Moles/Vol] 103 mmol/L 98-107 [facility] Eosinophils/100 WBC (Bld) 3.3 % 0-5 [facility] Glucose [Mass/Vol] 145 mg/dL 74-106 [facility] Comment on above: Fasting Glucose resu lt greater than or equal to 126 mg/dL suggests DIABETES MELLITUS per A.D.A. criteria. Neutrophils (Bld) [#/Vol] 6.1 10*3/uL 2.0-7.7 [facility] Neutrophils/100 WBC (Bld) 67.5 % 47-70 [facility] Potassium [Moles/Vol] 4.6 mmol/L 3.5-5.1 [facility] Sodium [Moles/Vol] 139 mmol/L 136-145 [facility] WBC (Bld) [#/Vol] 9.1 10*3/uL 4.4-11.0 [facility] Blood erythrocytes count (nu mber/volume)Ordered By: Dr. Au on 01-31-2023 RBC (Bld) [#/Vol] 3.74 10*6/uL 4.6-6.2 [facility] Blood hemoglobin measurement (mass/volume)Ordered By: Dr. Au on 01-31-2023 Hemoglobin (Bld) [Mass/Vol] 11.7 g/dL 13.0-16.5 [facility] Blood lymphocytes/100 leukoc ytesOrdered By: Dr. Au on 01-31-2023 Lymphocytes/100 WBC (Bld) 21.3 % 19-41 [facility] Blood monocytes/100 leukocyt esOrdered By: Dr. Au on 01-31-2023 Monocytes/100 WBC (Bld) 6.9 % 0-10 [facility] Blood platelet mean volumeOr dered By: Dr. Au on 01-31-2023 Platelet mean volume (Bld) [Entitic vol] 10.4 fL 6.2-12.0 [facility] Determination of erythrocyte mean corpuscular volume (MCV)Ordered By: Dr. Au on 01-31-2023 MCV (RBC) [Entitic vol] 100.0 fL 80-94 [facility] Hematocrit Auto (Bld) [Volum e fraction]Ordered By: Dr. Au on 01-31-2023 Hematocrit (Bld) [Volume fraction] 37.4 % 40-54 [facility] Iron measurement (mass/mass) Ordered By: Dr. Au on 01-31-2023 Iron (Unsp spec) [Mass/Mass] 65 ug/dL 65-175 [facility] Laboratory - Chemistry and C hemistry - challengeOrdered By: Dr. Au on 01-31-2023 CO2 [Moles/Vol] 29.0 mmol/L 21.0-32.0 [facility] Urea nitrogen/Creatinine [Mass ratio] 22.1 mg/mg 10-20 [facility] Laboratory - Hematology and Cell countsOrdered By: Dr. Au on 01-31-2023 Erythrocyte distribution width (RBC) [Entitic vol] 51.0 fL 35.1-43.9 [facility] Erythrocyte distribution width (RBC) [Ratio] 14.3 % 11.6-14.6 [facility] Immature granulocytes/100 WBC (Bld) 0.500 % 0.0-0.9 [facility] Comment on above: IG% - Immature Granu locytes (promyelocytes, myelocytes and metamyelocytes) > 1% indicates that a LEFT SHIFT is Present. MCH (RBC) [Entitic mass] 31.3 pg 27.0-32.0 [facility] Nucleated RBC/100 WBC (Bld) [Ratio] 0 % 0-5 [facility] MCHC Auto (RBC) [Mass/Vol]Or dered By: Dr. Au on 01-31-2023 MCHC (RBC) [Mass/Vol] 31.3 g/dL 32-36 [facility] No Panel InformationOrdered By: Dr. Au on 01-31-2023 Estimated GFR (MDRD) Amer 29 mL/min >60 [facility] Comment on above: GFR Calc Estimated GFR (MDRD) Non-Af Amer 24 mL/min >60 [facility] Comment on above: Non- GFR Calc Parathyroid Hormone (Intact) 32.8 pg/mL 18.4-80.1 [facility] Total Iron Binding Capacity 265 ug/dL 250-450 [facility] Platelets bldOrdered By: Dr. Au on 01-31-2023 Platelets (Bld) [#/Vol] 167 10*3/uL 150-450 [facility] Serum or plasma albumin aubree urement (mass/volume)Ordered By: Dr. Au on 01-31-2023 Albumin [Mass/Vol] 3.1 g/dL 3.2-5.0 [facility] Serum or plasma calcium aubree urement (mass/volume)Ordered By: Dr. Au on 01-31-2023 Calcium [Mass/Vol] 9.6 mg/dL 8.5-10.1 [facility] Serum or plasma creatinine m easurement (mass/volume)Ordered By: Dr. Au on 01-31-2023 Creatinine [Mass/Vol] 2.76 mg/dL 0.70-1.30 [facility] Comment on above: The validity of the calculated GFR & GFRAA in patients over 70 years has not been determined. Clinical correlation is essential. Serum or plasma ferritin laurie surement (mass/volume)Ordered By: Dr. Au on 01-31-2023 Ferritin [Mass/Vol] 191 ng/mL 26-388 [facility] Serum or plasma iron saturat ion measurement (mass fraction)Ordered By: Dr. Au on 01-31-2023 Iron saturation [Mass fraction] 24.5 % 15.0-55.0 [facility] Serum or plasma urea nitroge n measurement (mass/volume)Ordered By: Dr. Au on 01-31-2023 Urea nitrogen [Mass/Vol] 61 mg/dL 7-18 [facility] Serum or plasma uric acid me asurement (mass/volume)Ordered By: Dr. Au on 01-31-2023 Urate [Mass/Vol] 6.2 mg/dL 3.5-7.2 [facility] Comment on above: The drugs N-Acetylcy steine and Metamizole may falsely depress this assay. Urine creatinine measurement (mass/volume)Ordered By: Dr. Au on 01-31-2023 Creatinine (U) [Mass/Vol] 119.00 mg/dL NO RANGE EST. [facility] Urine protein measurement (m ass/volume)Ordered By: Dr. Au on 01-31-2023 Protein (U) [Mass/Vol] 64.8 mg/dL 0.0-11.8 [facility] Urine protein/creatinine mas s ratioOrdered By: Dr. Au on 01-31-2023 Protein/Creatinine (U) [Mass ratio] 545 mg/g CRE 0-200 [facility] Absolute lymphocyte countOrd ered By: Dr. Au on 01-24-2023 Lymphocytes Auto (Unsp spec) [#/Vol] 1.96 10*3/uL 0.83-4.51 [facility] Basophil percentageOrdered B y: Dr. Au on 01-24-2023 Basophil percentage 3.7 mg/dL 2.5-4.9 [facility] Basophils/100 WBC (Bld) 0.4 % 0-1 [facility] Chloride [Moles/Vol] 105 mmol/L 98-107 [facility] Eosinophils/100 WBC (Bld) 2.6 % 0-5 [facility] Glucose [Mass/Vol] 182 mg/dL 74-106 [facility] Comment on above: Fasting Glucose resu lt greater than or equal to 126 mg/dL suggests DIABETES MELLITUS per A.D.A. criteria. Neutrophils (Bld) [#/Vol] 6.3 10*3/uL 2.0-7.7 [facility] Neutrophils/100 WBC (Bld) 69.4 % 47-70 [facility] Potassium [Moles/Vol] 4.7 mmol/L 3.5-5.1 [facility] Sodium [Moles/Vol] 141 mmol/L 136-145 [facility] WBC (Bld) [#/Vol] 9.1 10*3/uL 4.4-11.0 [facility] Blood erythrocytes count (nu mber/volume)Ordered By: Dr. Au on 01-24-2023 RBC (Bld) [#/Vol] 3.46 10*6/uL 4.6-6.2 [facility] Blood hemoglobin measurement (mass/volume)Ordered By: Dr. Au on 01-24-2023 Hemoglobin (Bld) [Mass/Vol] 10.9 g/dL 13.0-16.5 [facility] Blood lymphocytes/100 leukoc ytesOrdered By: Dr. Au on 01-24-2023 Lymphocytes/100 WBC (Bld) 21.4 % 19-41 [facility] Blood monocytes/100 leukocyt esOrdered By: Dr. Au on 01-24-2023 Monocytes/100 WBC (Bld) 5.8 % 0-10 [facility] Blood platelet mean volumeOr dered By: Dr. Au on 01-24-2023 Platelet mean volume (Bld) [Entitic vol] 10.3 fL 6.2-12.0 [facility] Determination of erythrocyte mean corpuscular volume (MCV)Ordered By: Dr. Au on 01-24-2023 MCV (RBC) [Entitic vol] 98.8 fL 80-94 [facility] Hematocrit Auto (Bld) [Volum e fraction]Ordered By: Dr. Au on 01-24-2023 Hematocrit (Bld) [Volume fraction] 34.2 % 40-54 [facility] Iron measurement (mass/mass) Ordered By: Dr. Au on 01-24-2023 Iron (Unsp spec) [Mass/Mass] 68 ug/dL 65-175 [facility] Laboratory - Chemistry and C hemistry - challengeOrdered By: Dr. Au on 01-24-2023 CO2 [Moles/Vol] 28.0 mmol/L 21.0-32.0 [facility] Urea nitrogen/Creatinine [Mass ratio] 22.6 mg/mg 10-20 [facility] Laboratory - Hematology and Cell countsOrdered By: Dr. Au on 01-24-2023 Erythrocyte distribution width (RBC) [Entitic vol] 50.6 fL 35.1-43.9 [facility] Erythrocyte distribution width (RBC) [Ratio] 14.2 % 11.6-14.6 [facility] Immature granulocytes/100 WBC (Bld) 0.400 % 0.0-0.9 [facility] Comment on above: IG% - Immature Granu locytes (promyelocytes, myelocytes and metamyelocytes) > 1% indicates that a LEFT SHIFT is Present. MCH (RBC) [Entitic mass] 31.5 pg 27.0-32.0 [facility] Nucleated RBC/100 WBC (Bld) [Ratio] 0 % 0-5 [facility] MCHC Auto (RBC) [Mass/Vol]Or dered By: Dr. Au on 01-24-2023 MCHC (RBC) [Mass/Vol] 31.9 g/dL 32-36 [facility] No Panel InformationOrdered By: Dr. Au on 01-24-2023 Estimated GFR (MDRD) Amer 30 mL/min >60 [facility] Comment on above: GFR Calc Estimated GFR (MDRD) Non-Af Amer 25 mL/min >60 [facility] Comment on above: Non- GFR Calc Total Iron Binding Capacity 202 ug/dL 250-450 [facility] Platelets bldOrdered By: Dr. Au on 01-24-2023 Platelets (Bld) [#/Vol] 149 10*3/uL 150-450 [facility] Serum or plasma albumin aubree urement (mass/volume)Ordered By: Dr. Au on 01-24-2023 Albumin [Mass/Vol] 3.0 g/dL 3.2-5.0 [facility] Serum or plasma calcium aubree urement (mass/volume)Ordered By: Dr. Au on 01-24-2023 Calcium [Mass/Vol] 9.5 mg/dL 8.5-10.1 [facility] Serum or plasma creatinine m easurement (mass/volume)Ordered By: Dr. Au on 01-24-2023 Creatinine [Mass/Vol] 2.65 mg/dL 0.70-1.30 [facility] Comment on above: The validity of the calculated GFR & GFRAA in patients over 70 years has not been determined. Clinical correlation is essential. Serum or plasma ferritin laurie surement (mass/volume)Ordered By: Dr. Au on 01-24-2023 Ferritin [Mass/Vol] 191 ng/mL 26-388 [facility] Serum or plasma iron saturat ion measurement (mass fraction)Ordered By: Dr. Au on 01-24-2023 Iron saturation [Mass fraction] 33.7 % 15.0-55.0 [facility] Serum or plasma urea nitroge n measurement (mass/volume)Ordered By: Dr. Au on 01-24-2023 Urea nitrogen [Mass/Vol] 60 mg/dL 7-18 [facility] Absolute lymphocyte countOrd ered By: Dr. Au on 12-28-2022 Lymphocytes Auto (Unsp spec) [#/Vol] 1.99 10*3/uL 0.83-4.51 [facility] Basophil percentageOrdered B y: Dr. Au on 12-28-2022 Basophil percentage 3.9 mg/dL 2.5-4.9 [facility] Basophils/100 WBC (Bld) 0.2 % 0-1 [facility] Chloride [Moles/Vol] 107 mmol/L 98-107 [facility] Eosinophils/100 WBC (Bld) 3.0 % 0-5 [facility] Glucose [Mass/Vol] 214 mg/dL 74-106 [facility] Comment on above: Glucose result great er than or equal to 200 mg/dLsuggests DIABETES MELLITUS per A.D.A. criteria. Neutrophils (Bld) [#/Vol] 6.4 10*3/uL 2.0-7.7 [facility] Neutrophils/100 WBC (Bld) 68.1 % 47-70 [facility] Potassium [Moles/Vol] 4.3 mmol/L 3.5-5.1 [facility] Sodium [Moles/Vol] 141 mmol/L 136-145 [facility] WBC (Bld) [#/Vol] 9.4 10*3/uL 4.4-11.0 [facility] Blood erythrocytes count (nu mber/volume)Ordered By: Dr. Au on 12-28-2022 RBC (Bld) [#/Vol] 3.66 10*6/uL 4.6-6.2 [facility] Blood hemoglobin measurement (mass/volume)Ordered By: Dr. Au on 12-28-2022 Hemoglobin (Bld) [Mass/Vol] 11.5 g/dL 13.0-16.5 [facility] Blood lymphocytes/100 leukoc ytesOrdered By: Dr. Au on 12-28-2022 Lymphocytes/100 WBC (Bld) 21.3 % 19-41 [facility] Blood monocytes/100 leukocyt esOrdered By: Dr. Au on 12-28-2022 Monocytes/100 WBC (Bld) 7.1 % 0-10 [facility] Blood platelet mean volumeOr dered By: Dr. Au on 12-28-2022 Platelet mean volume (Bld) [Entitic vol] 10.4 fL 6.2-12.0 [facility] Determination of erythrocyte mean corpuscular volume (MCV)Ordered By: Dr. Au on 12-28-2022 MCV (RBC) [Entitic vol] 97.0 fL 80-94 [facility] Hematocrit Auto (Bld) [Volum e fraction]Ordered By: Dr. Au on 12-28-2022 Hematocrit (Bld) [Volume fraction] 35.5 % 40-54 [facility] Iron measurement (mass/mass) Ordered By: Dr. Au on 12-28-2022 Iron (Unsp spec) [Mass/Mass] 54 ug/dL 65-175 [facility] Laboratory - Chemistry and C hemistry - challengeOrdered By: Dr. Au on 12-28-2022 CO2 [Moles/Vol] 28.0 mmol/L 21.0-32.0 [facility] Urea nitrogen/Creatinine [Mass ratio] 23.6 mg/mg 10-20 [facility] Laboratory - Hematology and Cell countsOrdered By: Dr. Au on 12-28-2022 Erythrocyte distribution width (RBC) [Entitic vol] 50.2 fL 35.1-43.9 [facility] Erythrocyte distribution width (RBC) [Ratio] 14.3 % 11.6-14.6 [facility] Immature granulocytes/100 WBC (Bld) 0.300 % 0.0-0.9 [facility] Comment on above: IG% - Immature Granu locytes (promyelocytes, myelocytes and metamyelocytes) > 1% indicates that a LEFT SHIFT is Present. MCH (RBC) [Entitic mass] 31.4 pg 27.0-32.0 [facility] Nucleated RBC/100 WBC (Bld) [Ratio] 0 % 0-5 [facility] MCHC Auto (RBC) [Mass/Vol]Or dered By: Dr. Au on 12-28-2022 MCHC (RBC) [Mass/Vol] 32.4 g/dL 32-36 [facility] No Panel InformationOrdered By: Dr. Au on 12-28-2022 Estimated GFR (MDRD) Amer 30 mL/min >60 [facility] Comment on above: GFR Calc Estimated GFR (MDRD) Non-Af Amer 25 mL/min >60 [facility] Comment on above: Non- GFR Calc Total Iron Binding Capacity 244 ug/dL 250-450 [facility] Platelets bldOrdered By: Dr. Au on 12-28-2022 Platelets (Bld) [#/Vol] 148 10*3/uL 150-450 [facility] Serum or plasma albumin aubree urement (mass/volume)Ordered By: Dr. Au on 12-28-2022 Albumin [Mass/Vol] 3.1 g/dL 3.2-5.0 [facility] Serum or plasma calcium aubree urement (mass/volume)Ordered By: Dr. Au on 12-28-2022 Calcium [Mass/Vol] 9.7 mg/dL 8.5-10.1 [facility] [facility] Serum or plasma creatinine m easurement (mass/volume)Ordered By: Dr. Au on 12-28-2022 Creatinine [Mass/Vol] 2.63 mg/dL 0.70-1.30 [facility] Comment on above: The validity of the calculated GFR & GFRAA in patients over 70 years has not been determined. Clinical correlation is essential. Serum or plasma ferritin laurie surement (mass/volume)Ordered By: Dr. Au on 12-28-2022 Ferritin [Mass/Vol] 193 ng/mL 26-388 [facility] Serum or plasma iron saturat ion measurement (mass fraction)Ordered By: Dr. Au on 12-28-2022 Iron saturation [Mass fraction] 22.1 % 15.0-55.0 [facility] Serum or plasma urea nitroge n measurement (mass/volume)Ordered By: Dr. Au on 12-28-2022 Urea nitrogen [Mass/Vol] 62 mg/dL 7-18 [facility] Absolute lymphocyte countOrd ered By: Dr. Au on 12-02-2022 Lymphocytes Auto (Unsp spec) [#/Vol] 1.85 10*3/uL 0.83-4.51 [facility] Basophil percentageOrdered B y: Dr. Au on 12-02-2022 Basophil percentage 3.8 mg/dL 2.5-4.9 [facility] Basophils/100 WBC (Bld) 0.4 % 0-1 [facility] Chloride [Moles/Vol] 108 mmol/L 98-107 [facility] Eosinophils/100 WBC (Bld) 2.8 % 0-5 [facility] Glucose [Mass/Vol] 180 mg/dL 74-106 [facility] Comment on above: Fasting Glucose resu lt greater than or equal to 126 mg/dL suggests DIABETES MELLITUS per A.D.A. criteria. Neutrophils (Bld) [#/Vol] 5.7 10*3/uL 2.0-7.7 [facility] Neutrophils/100 WBC (Bld) 67.2 % 47-70 [facility] Potassium [Moles/Vol] 4.3 mmol/L 3.5-5.1 [facility] Sodium [Moles/Vol] 142 mmol/L 136-145 [facility] WBC (Bld) [#/Vol] 8.5 10*3/uL 4.4-11.0 [facility] Blood erythrocytes count (nu mber/volume)Ordered By: Dr. Au on 12-02-2022 RBC (Bld) [#/Vol] 3.44 10*6/uL 4.6-6.2 [facility] Blood hemoglobin measurement (mass/volume)Ordered By: Dr. Au on 12-02-2022 Hemoglobin (Bld) [Mass/Vol] 11.0 g/dL 13.0-16.5 [facility] Blood lymphocytes/100 leukoc ytesOrdered By: Dr. Au on 12-02-2022 Lymphocytes/100 WBC (Bld) 21.8 % 19-41 [facility] Blood monocytes/100 leukocyt esOrdered By: Dr. Au on 12-02-2022 Monocytes/100 WBC (Bld) 7.4 % 0-10 [facility] Blood platelet mean volumeOr dered By: Dr. Au on 12-02-2022 Platelet mean volume (Bld) [Entitic vol] 10.4 fL 6.2-12.0 [facility] Determination of erythrocyte mean corpuscular volume (MCV)Ordered By: Dr. Au on 12-02-2022 MCV (RBC) [Entitic vol] 98.3 fL 80-94 [facility] Hematocrit Auto (Bld) [Volum e fraction]Ordered By: Dr. Au on 12-02-2022 Hematocrit (Bld) [Volume fraction] 33.8 % 40-54 [facility] Iron measurement (mass/mass) Ordered By: Dr. Au on 12-02-2022 Iron (Unsp spec) [Mass/Mass] 64 ug/dL 65-175 [facility] Laboratory - Chemistry and C hemistry - challengeOrdered By: Dr. Au on 12-02-2022 CO2 [Moles/Vol] 31.0 mmol/L 21.0-32.0 [facility] Urea nitrogen/Creatinine [Mass ratio] 23.0 mg/mg 10-20 [facility] Laboratory - Hematology and Cell countsOrdered By: Dr. Au on 12-02-2022 Erythrocyte distribution width (RBC) [Entitic vol] 51.8 fL 35.1-43.9 [facility] Erythrocyte distribution width (RBC) [Ratio] 14.4 % 11.6-14.6 [facility] Immature granulocytes/100 WBC (Bld) 0.400 % 0.0-0.9 [facility] Comment on above: IG% - Immature Granu locytes (promyelocytes, myelocytes and metamyelocytes) > 1% indicates that a LEFT SHIFT is Present. MCH (RBC) [Entitic mass] 32.0 pg 27.0-32.0 [facility] Nucleated RBC/100 WBC (Bld) [Ratio] 0 % 0-5 [facility] MCHC Auto (RBC) [Mass/Vol]Or dered By: Dr. Au on 12-02-2022 MCHC (RBC) [Mass/Vol] 32.5 g/dL 32-36 [facility] No Panel InformationOrdered By: Dr. Au on 12-02-2022 Estimated GFR (MDRD) Amer 29 mL/min >60 [facility] Comment on above: GFR Calc Estimated GFR (MDRD) Non-Af Amer 24 mL/min >60 [facility] Comment on above: Non- GFR Calc Parathyroid Hormone (Intact) 16.7 pg/mL 18.4-80.1 [facility] Total Iron Binding Capacity 230 ug/dL 250-450 [facility] Platelets bldOrdered By: Dr. Au on 12-02-2022 Platelets (Bld) [#/Vol] 158 10*3/uL 150-450 [facility] Serum or plasma albumin aubree urement (mass/volume)Ordered By: Dr. Au on 12-02-2022 Albumin [Mass/Vol] 3.4 g/dL 3.2-5.0 [facility] Serum or plasma calcium aubree urement (mass/volume)Ordered By: Dr. Au on 12-02-2022 Calcium [Mass/Vol] 10.0 mg/dL 8.5-10.1 [facility] Serum or plasma creatinine m easurement (mass/volume)Ordered By: Dr. Au on 12-02-2022 Creatinine [Mass/Vol] 2.74 mg/dL 0.70-1.30 [facility] Comment on above: The validity of the calculated GFR & GFRAA in patients over 70 years has not been determined. Clinical correlation is essential. Serum or plasma ferritin laurie surement (mass/volume)Ordered By: Dr. Au on 12-02-2022 Ferritin [Mass/Vol] 185 ng/mL 26-388 [facility] Serum or plasma iron saturat ion measurement (mass fraction)Ordered By: Dr. Au on 12-02-2022 Iron saturation [Mass fraction] 27.8 % 15.0-55.0 [facility] Serum or plasma urea nitroge n measurement (mass/volume)Ordered By: Dr. Au on 12-02-2022 Urea nitrogen [Mass/Vol] 63 mg/dL 7-18 [facility] Basophil percentageOrdered B y: Dr. Espino on 11-24-2022 Bilirubin [Mass/Vol] 0.90 mg/dL 0.20-1.00 [facility] Comment on above: For patients on eltr ombopag therapy, use of Dimension [place] TBIL is not recommended. Chloride [Moles/Vol] 107 mmol/L 98-107 [facility] Cholesterol [Mass/Vol] 103 mg/dL <200 [facility] Comment on above: <200 mg/dL Desirable 200-240 mg/dL Borderline >240 mg/dL High Risk Glucose [Mass/Vol] 142 mg/dL 74-106 [facility] Comment on above: Fasting Glucose resu lt greater than or equal to 126 mg/dL suggests DIABETES MELLITUS per A.D.A. criteria. Potassium [Moles/Vol] 4.6 mmol/L 3.5-5.1 [facility] Protein [Mass/Vol] 7.6 g/dL 6.4-8.2 [facility] Sodium [Moles/Vol] 142 mmol/L 136-145 [facility] Triglyceride [Mass/Vol] 141 mg/dL <199 [facility] Comment on above: The drugs N-Acetylcy steine and Metamizole may falsely depress this assay.Serum Triglycerides Reference Interval Normal <150 mg/dL Borderline high 150 - 199 mg/dL High 200 - 499 mg/dL Very High > or = 500 mg/dL WBC (Bld) [#/Vol] 9.1 10*3/uL 4.4-11.0 [facility] Blood erythrocytes count (nu mber/volume)Ordered By: Dr. Espino on 11-24-2022 RBC (Bld) [#/Vol] 3.51 10*6/uL 4.6-6.2 [facility] Blood hemoglobin measurement (mass/volume)Ordered By: Dr. Espino on 11-24-2022 Hemoglobin (Bld) [Mass/Vol] 11.3 g/dL 13.0-16.5 [facility] Blood platelet mean volumeOr dered By: Dr. Espino on 11-24-2022 Platelet mean volume (Bld) [Entitic vol] 11.1 fL 6.2-12.0 [facility] Determination of erythrocyte mean corpuscular volume (MCV)Ordered By: Dr. Espino on 11-24-2022 MCV (RBC) [Entitic vol] 99.7 fL 80-94 [facility] Hematocrit Auto (Bld) [Volum e fraction]Ordered By: Dr. Espino on 11-24-2022 Hematocrit (Bld) [Volume fraction] 35.0 % 40-54 [facility] Laboratory - Chemistry and C hemistry - challengeOrdered By: Dr. Espino on 11-24-2022 ALP [Catalytic activity/Vol] 135 U/L 45-117 [facility] ALT [Catalytic activity/Vol] 17 U/L 16-61 [facility] CO2 [Moles/Vol] 30.0 mmol/L 21.0-32.0 [facility] Globulin (S) [Mass/Vol] 4.3 g/dL 2.2-4.2 [facility] Urea nitrogen/Creatinine [Mass ratio] 23.0 mg/mg 10-20 [facility] Laboratory - Hematology and Cell countsOrdered By: Dr. Espino on 11-24-2022 Erythrocyte distribution width (RBC) [Entitic vol] 52.0 fL 35.1-43.9 [facility] Erythrocyte distribution width (RBC) [Ratio] 14.4 % 11.6-14.6 [facility] MCH (RBC) [Entitic mass] 32.2 pg 27.0-32.0 [facility] MCHC Auto (RBC) [Mass/Vol]Or dered By: Dr. Espino on 11-24-2022 MCHC (RBC) [Mass/Vol] 32.3 g/dL 32-36 [facility] No Panel InformationOrdered By: Dr. Espino on 11-24-2022 Estimated GFR (MDRD) Amer 33 mL/min >60 [facility] Comment on above: GFR Calc Estimated GFR (MDRD) Non-Af Amer 27 mL/min >60 [facility] Comment on above: Non- GFR Calc Thyroid Stimulating Hormone (TSH) 5.30 uIU/mL 0.358-3.74 [facility] Platelets bldOrdered By: Dr. Espino on 11-24-2022 Platelets (Bld) [#/Vol] 148 10*3/uL 150-450 [facility] Serum or plasma albumin aubree urement (mass/volume)Ordered By: Dr. Espino on 11-24-2022 Albumin [Mass/Vol] 3.3 g/dL 3.2-5.0 [facility] Serum or plasma albumin/glob ulin mass ratioOrdered By: Dr. Espino on 11-24-2022 Albumin/Globulin [Mass ratio] 0.8 {ratio} 0.9-2.4 [facility] Serum or plasma calcium aubree urement (mass/volume)Ordered By: Dr. Espino on 11-24-2022 Calcium [Mass/Vol] 9.0 mg/dL 8.5-10.1 [facility] Serum or plasma cholesterol in HDL measurement (mass/volume)Ordered By: Dr. Espino on 11-24-2022 Cholesterol in HDL [Mass/Vol] 29 mg/dL >40 [facility] Comment on above: The drugs N-Acetylcy steine and Metamizole may falsely depress this assay. Reference Range HDL <40 mg/dL Low HDL Cholesterol HDL >or= 60 mg/dL High HDL Cholesterol Serum or plasma cholesterol in VLDL measurement (mass/volume)Ordered By: Dr. Espino on 11-24-2022 Cholesterol in VLDL [Mass/Vol] 28 mg/dL 5-40 [facility] Serum or plasma creatinine m easurement (mass/volume)Ordered By: Dr. Espino on 11-24-2022 Creatinine [Mass/Vol] 2.44 mg/dL 0.70-1.30 [facility] Comment on above: The validity of the calculated GFR & GFRAA in patients over 70 years has not been determined. Clinical correlation is essential. Serum or plasma low density lipoprotein (LDL) cholesterol measurement (mass/volume)Ordered By: Dr. Espino on 11-24-2022 Cholesterol in LDL [Mass/Vol] 46 mg/dL 0-130 [facility] Serum or plasma urea nitroge n measurement (mass/volume)Ordered By: Dr. Espino on 11-24-2022 Urea nitrogen [Mass/Vol] 56 mg/dL 7-18 [facility] Thin prep Papanicolaou smear with manual screeningOrdered By: Dr. Espino on 11-24-2022 Thin prep Papanicolaou smear with manual screening 19 U/L 15-37 [facility] Thin prep Papanicolaou smear with manual screening 5 5-15 [facility] Whole blood hemoglobin A1c/t otal hemoglobin ratio (mass fraction)Ordered By: Dr. Espino on 11-24-2022 HbA1c (Bld) [Mass fraction] 5.8 % 3.8-5.6 [facility] Comment on above: Normal < 5.7 % Predi abetic 5.7 - 6.4 % Diabetic >or= 6.5 % Please note range changes. Absolute lymphocyte countOrd ered By: Dr. Au on 11-01-2022 Lymphocytes Auto (Unsp spec) [#/Vol] 2.34 10*3/uL 0.83-4.51 [facility] Basophil percentageOrdered B y: Dr. Au on 11-01-2022 Basophil percentage 3.7 mg/dL 2.5-4.9 [facility] Basophils/100 WBC (Bld) 0.4 % 0-1 [facility] Chloride [Moles/Vol] 105 mmol/L 98-107 [facility] Eosinophils/100 WBC (Bld) 2.1 % 0-5 [facility] Glucose [Mass/Vol] 168 mg/dL 74-106 [facility] Comment on above: Fasting Glucose resu lt greater than or equal to 126 mg/dL suggests DIABETES MELLITUS per A.D.A. criteria. Neutrophils (Bld) [#/Vol] 7.0 10*3/uL 2.0-7.7 [facility] Neutrophils/100 WBC (Bld) 67.9 % 47-70 [facility] Potassium [Moles/Vol] 4.0 mmol/L 3.5-5.1 [facility] Sodium [Moles/Vol] 140 mmol/L 136-145 [facility] WBC (Bld) [#/Vol] 10.3 10*3/uL 4.4-11.0 [facility] Blood erythrocytes count (nu mber/volume)Ordered By: Dr. Au on 11-01-2022 RBC (Bld) [#/Vol] 3.58 10*6/uL 4.6-6.2 [facility] Blood hemoglobin measurement (mass/volume)Ordered By: Dr. Au on 11-01-2022 Hemoglobin (Bld) [Mass/Vol] 11.2 g/dL 13.0-16.5 [facility] Blood lymphocytes/100 leukoc ytesOrdered By: Dr. Au on 11-01-2022 Lymphocytes/100 WBC (Bld) 22.7 % 19-41 [facility] Blood monocytes/100 leukocyt esOrdered By: Dr. Au on 11-01-2022 Monocytes/100 WBC (Bld) 6.5 % 0-10 [facility] Blood platelet mean volumeOr dered By: Dr. Au on 11-01-2022 Platelet mean volume (Bld) [Entitic vol] 10.0 fL 6.2-12.0 [facility] Determination of erythrocyte mean corpuscular volume (MCV)Ordered By: Dr. Au on 11-01-2022 MCV (RBC) [Entitic vol] 99.2 fL 80-94 [facility] Hematocrit Auto (Bld) [Volum e fraction]Ordered By: Dr. Au on 11-01-2022 Hematocrit (Bld) [Volume fraction] 35.5 % 40-54 [facility] Iron measurement (mass/mass) Ordered By: Dr. Au on 11-01-2022 Iron (Unsp spec) [Mass/Mass] 69 ug/dL 65-175 [facility] Laboratory - Chemistry and C hemistry - challengeOrdered By: Dr. Au on 11-01-2022 CO2 [Moles/Vol] 29.0 mmol/L 21.0-32.0 [facility] Urea nitrogen/Creatinine [Mass ratio] 21.5 mg/mg 10-20 [facility] Laboratory - Hematology and Cell countsOrdered By: Dr. Au on 11-01-2022 Erythrocyte distribution width (RBC) [Entitic vol] 51.2 fL 35.1-43.9 [facility] Erythrocyte distribution width (RBC) [Ratio] 14.4 % 11.6-14.6 [facility] Immature granulocytes/100 WBC (Bld) 0.400 % 0.0-0.9 [facility] Comment on above: IG% - Immature Granu locytes (promyelocytes, myelocytes and metamyelocytes) > 1% indicates that a LEFT SHIFT is Present. MCH (RBC) [Entitic mass] 31.3 pg 27.0-32.0 [facility] Nucleated RBC/100 WBC (Bld) [Ratio] 0 % 0-5 [facility] MCHC Auto (RBC) [Mass/Vol]Or dered By: Dr. Au on 11-01-2022 MCHC (RBC) [Mass/Vol] 31.5 g/dL 32-36 [facility] No Panel InformationOrdered By: Dr. Au on 11-01-2022 Estimated GFR (MDRD) Amer 30 mL/min >60 [facility] Comment on above: GFR Calc Estimated GFR (MDRD) Non-Af Amer 25 mL/min >60 [facility] Comment on above: Non- GFR Calc Total Iron Binding Capacity 228 ug/dL 250-450 [facility] Platelets bldOrdered By: Dr. Au on 11-01-2022 Platelets (Bld) [#/Vol] 155 10*3/uL 150-450 [facility] Serum or plasma albumin aubree urement (mass/volume)Ordered By: Dr. Au on 11-01-2022 Albumin [Mass/Vol] 3.3 g/dL 3.2-5.0 [facility] Serum or plasma calcium aubree urement (mass/volume)Ordered By: Dr. Au on 11-01-2022 Calcium [Mass/Vol] 9.6 mg/dL 8.5-10.1 [facility] Serum or plasma creatinine m easurement (mass/volume)Ordered By: Dr. Au on 11-01-2022 Creatinine [Mass/Vol] 2.61 mg/dL 0.70-1.30 [facility] Comment on above: The validity of the calculated GFR & GFRAA in patients over 70 years has not been determined. Clinical correlation is essential. Serum or plasma ferritin laurie surement (mass/volume)Ordered By: Dr. Au on 11-01-2022 Ferritin [Mass/Vol] 166 ng/mL 26-388 [facility] Serum or plasma iron saturat ion measurement (mass fraction)Ordered By: Dr. Au on 11-01-2022 Iron saturation [Mass fraction] 30.3 % 15.0-55.0 [facility] Serum or plasma urea nitroge n measurement (mass/volume)Ordered By: Dr. Au on 11-01-2022 Urea nitrogen [Mass/Vol] 56 mg/dL 7-18 [facility] Absolute lymphocyte countOrd ered By: Dr. Au on 10-04-2022 Lymphocytes Auto (Unsp spec) [#/Vol] 1.62 10*3/uL 0.83-4.51 [facility] Basophil percentageOrdered B y: Dr. Au on 10-04-2022 Basophil percentage 2.5 mg/dL 2.5-4.9 [facility] Basophils/100 WBC (Bld) 0.3 % 0-1 [facility] Chloride [Moles/Vol] 107 mmol/L 98-107 [facility] Eosinophils/100 WBC (Bld) 2.3 % 0-5 [facility] Glucose [Mass/Vol] 180 mg/dL 74-106 [facility] Comment on above: Fasting Glucose resu lt greater than or equal to 126 mg/dL suggests DIABETES MELLITUS per A.D.A. criteria. Neutrophils (Bld) [#/Vol] 6.5 10*3/uL 2.0-7.7 [facility] Neutrophils/100 WBC (Bld) 73.0 % 47-70 [facility] Potassium [Moles/Vol] 4.3 mmol/L 3.5-5.1 [facility] Sodium [Moles/Vol] 140 mmol/L 136-145 [facility] WBC (Bld) [#/Vol] 9.0 10*3/uL 4.4-11.0 [facility] Blood erythrocytes count (nu mber/volume)Ordered By: Dr. Au on 10-04-2022 RBC (Bld) [#/Vol] 3.42 10*6/uL 4.6-6.2 [facility] Blood hemoglobin measurement (mass/volume)Ordered By: Dr. Au on 10-04-2022 Hemoglobin (Bld) [Mass/Vol] 10.7 g/dL 13.0-16.5 [facility] Blood lymphocytes/100 leukoc ytesOrdered By: Dr. Au on 10-04-2022 Lymphocytes/100 WBC (Bld) 18.1 % 19-41 [facility] Blood monocytes/100 leukocyt esOrdered By: Dr. Au on 10-04-2022 Monocytes/100 WBC (Bld) 6.0 % 0-10 [facility] Blood platelet mean volumeOr dered By: Dr. Au on 10-04-2022 Platelet mean volume (Bld) [Entitic vol] 10.7 fL 6.2-12.0 [facility] Determination of erythrocyte mean corpuscular volume (MCV)Ordered By: Dr. Au on 10-04-2022 MCV (RBC) [Entitic vol] 98.8 fL 80-94 [facility] Hematocrit Auto (Bld) [Volum e fraction]Ordered By: Dr. Au on 10-04-2022 Hematocrit (Bld) [Volume fraction] 33.8 % 40-54 [facility] Iron measurement (mass/mass) Ordered By: Dr. Au on 10-04-2022 Iron (Unsp spec) [Mass/Mass] 56 ug/dL 65-175 [facility] Laboratory - Chemistry and C hemistry - challengeOrdered By: Dr. Au on 10-04-2022 CO2 [Moles/Vol] 29.0 mmol/L 21.0-32.0 [facility] Urea nitrogen/Creatinine [Mass ratio] 19.6 mg/mg 10-20 [facility] Laboratory - Hematology and Cell countsOrdered By: Dr. Au on 10-04-2022 Erythrocyte distribution width (RBC) [Entitic vol] 52.6 fL 35.1-43.9 [facility] Erythrocyte distribution width (RBC) [Ratio] 14.6 % 11.6-14.6 [facility] Immature granulocytes/100 WBC (Bld) 0.300 % 0.0-0.9 [facility] Comment on above: IG% - Immature Granu locytes (promyelocytes, myelocytes and metamyelocytes) > 1% indicates that a LEFT SHIFT is Present. MCH (RBC) [Entitic mass] 31.3 pg 27.0-32.0 [facility] Nucleated RBC/100 WBC (Bld) [Ratio] 0 % 0-5 [facility] MCHC Auto (RBC) [Mass/Vol]Or dered By: Dr. Au on 10-04-2022 MCHC (RBC) [Mass/Vol] 31.7 g/dL 32-36 [facility] No Panel InformationOrdered By: Dr. Au on 10-04-2022 Estimated GFR (MDRD) Amer 34 mL/min >60 [facility] Comment on above: GFR Calc Estimated GFR (MDRD) Non-Af Amer 28 mL/min >60 [facility] Comment on above: Non- GFR Calc Total Iron Binding Capacity 276 ug/dL 250-450 [facility] Platelets bldOrdered By: Dr. Au on 10-04-2022 Platelets (Bld) [#/Vol] 145 10*3/uL 150-450 [facility] Serum or plasma albumin aubree urement (mass/volume)Ordered By: Dr. Au on 10-04-2022 Albumin [Mass/Vol] 3.0 g/dL 3.2-5.0 [facility] Serum or plasma calcium aubree urement (mass/volume)Ordered By: Dr. Au on 10-04-2022 Calcium [Mass/Vol] 9.1 mg/dL 8.5-10.1 [facility] Serum or plasma creatinine m easurement (mass/volume)Ordered By: Dr. Au on 10-04-2022 Creatinine [Mass/Vol] 2.35 mg/dL 0.70-1.30 [facility] Comment on above: The validity of the calculated GFR & GFRAA in patients over 70 years has not been determined. Clinical correlation is essential. Serum or plasma ferritin laurie surement (mass/volume)Ordered By: Dr. Au on 10-04-2022 Ferritin [Mass/Vol] 205 ng/mL 26-388 [facility] Serum or plasma iron saturat ion measurement (mass fraction)Ordered By: Dr. Au on 10-04-2022 Iron saturation [Mass fraction] 20.3 % 15.0-55.0 [facility] Serum or plasma urea nitroge n measurement (mass/volume)Ordered By: Dr. Au on 10-04-2022 Urea nitrogen [Mass/Vol] 46 mg/dL 7-18 [facility] Absolute lymphocyte countOrd ered By: Dr. Au on 09-29-2022 Lymphocytes Auto (Unsp spec) [#/Vol] 1.94 10*3/uL 0.83-4.51 [facility] Basophil percentageOrdered B y: Dr. Au on 09-29-2022 Basophil percentage 3.0 mg/dL 2.5-4.9 [facility] Basophils/100 WBC (Bld) 0.4 % 0-1 [facility] Chloride [Moles/Vol] 105 mmol/L 98-107 [facility] Eosinophils/100 WBC (Bld) 2.3 % 0-5 [facility] Glucose [Mass/Vol] 121 mg/dL 74-106 [facility] Comment on above: Fasting Glucose resu lt from 100 to 125 mg/dL suggests IMPAIRED HOMEOSTASIS per A.D.A. criteria. Neutrophils (Bld) [#/Vol] 6.8 10*3/uL 2.0-7.7 [facility] Neutrophils/100 WBC (Bld) 70.7 % 47-70 [facility] Potassium [Moles/Vol] 4.0 mmol/L 3.5-5.1 [facility] Sodium [Moles/Vol] 139 mmol/L 136-145 [facility] WBC (Bld) [#/Vol] 9.6 10*3/uL 4.4-11.0 [facility] Blood erythrocytes count (nu mber/volume)Ordered By: Dr. Au on 09-29-2022 RBC (Bld) [#/Vol] 3.42 10*6/uL 4.6-6.2 [facility] Blood hemoglobin measurement (mass/volume)Ordered By: Dr. Au on 09-29-2022 Hemoglobin (Bld) [Mass/Vol] 10.9 g/dL 13.0-16.5 [facility] Blood lymphocytes/100 leukoc ytesOrdered By: Dr. Au on 09-29-2022 Lymphocytes/100 WBC (Bld) 20.2 % 19-41 [facility] Blood monocytes/100 leukocyt esOrdered By: Dr. Au on 09-29-2022 Monocytes/100 WBC (Bld) 5.9 % 0-10 [facility] Blood platelet mean volumeOr dered By: Dr. Au on 09-29-2022 Platelet mean volume (Bld) [Entitic vol] 10.8 fL 6.2-12.0 [facility] Determination of erythrocyte mean corpuscular volume (MCV)Ordered By: Dr. Au on 09-29-2022 MCV (RBC) [Entitic vol] 100.3 fL 80-94 [facility] Hematocrit Auto (Bld) [Volum e fraction]Ordered By: Dr. Au on 09-29-2022 Hematocrit (Bld) [Volume fraction] 34.3 % 40-54 [facility] Iron measurement (mass/mass) Ordered By: Dr. Au on 09-29-2022 Iron (Unsp spec) [Mass/Mass] 58 ug/dL 65-175 [facility] Laboratory - Chemistry and C hemistry - challengeOrdered By: Dr. Au on 09-29-2022 CO2 [Moles/Vol] 29.0 mmol/L 21.0-32.0 [facility] Urea nitrogen/Creatinine [Mass ratio] 23.3 mg/mg 10-20 [facility] Laboratory - Hematology and Cell countsOrdered By: Dr. Au on 09-29-2022 Erythrocyte distribution width (RBC) [Entitic vol] 53.1 fL 35.1-43.9 [facility] Erythrocyte distribution width (RBC) [Ratio] 14.7 % 11.6-14.6 [facility] Immature granulocytes/100 WBC (Bld) 0.500 % 0.0-0.9 [facility] Comment on above: IG% - Immature Granu locytes (promyelocytes, myelocytes and metamyelocytes) > 1% indicates that a LEFT SHIFT is Present. MCH (RBC) [Entitic mass] 31.9 pg 27.0-32.0 [facility] Nucleated RBC/100 WBC (Bld) [Ratio] 0 % 0-5 [facility] MCHC Auto (RBC) [Mass/Vol]Or dered By: Dr. Au on 09-29-2022 MCHC (RBC) [Mass/Vol] 31.8 g/dL 32-36 [facility] No Panel InformationOrdered By: Dr. Au on 09-29-2022 Estimated GFR (MDRD) Amer 36 mL/min >60 [facility] Comment on above: GFR Calc Estimated GFR (MDRD) Non-Af Amer 30 mL/min >60 [facility] Comment on above: Non- GFR Calc Parathyroid Hormone (Intact) 113.6 pg/mL 18.4-80.1 [facility] Total Iron Binding Capacity 220 ug/dL 250-450 [facility] Platelets bldOrdered By: Dr. Au on 09-29-2022 Platelets (Bld) [#/Vol] 163 10*3/uL 150-450 [facility] Serum or plasma albumin aubree urement (mass/volume)Ordered By: Dr. Au on 09-29-2022 Albumin [Mass/Vol] 3.0 g/dL 3.2-5.0 [facility] Serum or plasma calcium aubree urement (mass/volume)Ordered By: Dr. Au on 09-29-2022 Calcium [Mass/Vol] 8.8 mg/dL 8.5-10.1 [facility] Serum or plasma creatinine m easurement (mass/volume)Ordered By: Dr. Au on 09-29-2022 Creatinine [Mass/Vol] 2.27 mg/dL 0.70-1.30 [facility] Comment on above: The validity of the calculated GFR & GFRAA in patients over 70 years has not been determined. Clinical correlation is essential. Serum or plasma ferritin laurie surement (mass/volume)Ordered By: Dr. Au on 09-29-2022 Ferritin [Mass/Vol] 185 ng/mL 26-388 [facility] Serum or plasma iron saturat ion measurement (mass fraction)Ordered By: Dr. Au on 09-29-2022 Iron saturation [Mass fraction] 26.4 % 15.0-55.0 [facility] Serum or plasma urea nitroge n measurement (mass/volume)Ordered By: Dr. Au on 09-29-2022 Urea nitrogen [Mass/Vol] 53 mg/dL 7-18 [facility] Serum or plasma uric acid me asurement (mass/volume)Ordered By: Dr. Au on 09-29-2022 Urate [Mass/Vol] 6.3 mg/dL 3.5-7.2 [facility] Comment on above: The drugs N-Acetylcy steine and Metamizole may falsely depress this assay. Urine creatinine measurement (mass/volume)Ordered By: Dr. Au on 09-29-2022 Creatinine (U) [Mass/Vol] 54.30 mg/dL NO RANGE EST. [facility] Urine protein measurement (m ass/volume)Ordered By: Dr. Au on 09-29-2022 Protein (U) [Mass/Vol] 55.8 mg/dL 0.0-11.8 [facility] Urine protein/creatinine mas s ratioOrdered By: Dr. Au on 09-29-2022 Protein/Creatinine (U) [Mass ratio] 1028 mg/g CRE 0-200 [facility] Absolute lymphocyte countOrd ered By: Dr. Au on 09-06-2022 Lymphocytes Auto (Unsp spec) [#/Vol] 1.88 10*3/uL 0.83-4.51 [facility] Basophil percentageOrdered B y: Dr. Au on 09-06-2022 Basophil percentage 3.0 mg/dL 2.5-4.9 [facility] Basophils/100 WBC (Bld) 0.4 % 0-1 [facility] Chloride [Moles/Vol] 106 mmol/L 98-107 [facility] Eosinophils/100 WBC (Bld) 2.5 % 0-5 [facility] Glucose [Mass/Vol] 104 mg/dL 74-106 [facility] Comment on above: Fasting Glucose resu lt from 100 to 125 mg/dL suggests IMPAIRED HOMEOSTASIS per A.D.A. criteria. Neutrophils (Bld) [#/Vol] 7.0 10*3/uL 2.0-7.7 [facility] Neutrophils/100 WBC (Bld) 69.8 % 47-70 [facility] Potassium [Moles/Vol] 3.9 mmol/L 3.5-5.1 [facility] Sodium [Moles/Vol] 141 mmol/L 136-145 [facility] WBC (Bld) [#/Vol] 10.0 10*3/uL 4.4-11.0 [facility] Blood erythrocytes count (nu mber/volume)Ordered By: Dr. Au on 09-06-2022 RBC (Bld) [#/Vol] 3.44 10*6/uL 4.6-6.2 [facility] Blood hemoglobin measurement (mass/volume)Ordered By: Dr. Au on 09-06-2022 Hemoglobin (Bld) [Mass/Vol] 10.6 g/dL 13.0-16.5 [facility] Blood lymphocytes/100 leukoc ytesOrdered By: Dr. Au on 09-06-2022 Lymphocytes/100 WBC (Bld) 18.9 % 19-41 [facility] Blood monocytes/100 leukocyt esOrdered By: Dr. Au on 09-06-2022 Monocytes/100 WBC (Bld) 7.9 % 0-10 [facility] Blood platelet mean volumeOr dered By: Dr. Au on 09-06-2022 Platelet mean volume (Bld) [Entitic vol] 10.5 fL 6.2-12.0 [facility] Determination of erythrocyte mean corpuscular volume (MCV)Ordered By: Dr. Au on 09-06-2022 MCV (RBC) [Entitic vol] 98.5 fL 80-94 [facility] Hematocrit Auto (Bld) [Volum e fraction]Ordered By: Dr. Au on 09-06-2022 Hematocrit (Bld) [Volume fraction] 33.9 % 40-54 [facility] Iron measurement (mass/mass) Ordered By: Dr. Au on 09-06-2022 Iron (Unsp spec) [Mass/Mass] 52 ug/dL 65-175 [facility] Laboratory - Chemistry and C hemistry - challengeOrdered By: Dr. Au on 09-06-2022 CO2 [Moles/Vol] 30.0 mmol/L 21.0-32.0 [facility] Urea nitrogen/Creatinine [Mass ratio] 21.3 mg/mg 10-20 [facility] Laboratory - Hematology and Cell countsOrdered By: Dr. Au on 09-06-2022 Erythrocyte distribution width (RBC) [Entitic vol] 51.6 fL 35.1-43.9 [facility] Erythrocyte distribution width (RBC) [Ratio] 14.4 % 11.6-14.6 [facility] Immature granulocytes/100 WBC (Bld) 0.500 % 0.0-0.9 [facility] Comment on above: IG% - Immature Granu locytes (promyelocytes, myelocytes and metamyelocytes) > 1% indicates that a LEFT SHIFT is Present. MCH (RBC) [Entitic mass] 30.8 pg 27.0-32.0 [facility] Nucleated RBC/100 WBC (Bld) [Ratio] 0 % 0-5 [facility] MCHC Auto (RBC) [Mass/Vol]Or dered By: Dr. Au on 09-06-2022 MCHC (RBC) [Mass/Vol] 31.3 g/dL 32-36 [facility] No Panel InformationOrdered By: Dr. Au on 09-06-2022 Estimated GFR (MDRD) Amer 32 mL/min >60 [facility] Comment on above: GFR Calc Estimated GFR (MDRD) Non-Af Amer 26 mL/min >60 [facility] Comment on above: Non- GFR Calc Parathyroid Hormone (Intact) 33.7 pg/mL 18.4-80.1 [facility] Total Iron Binding Capacity 215 ug/dL 250-450 [facility] Platelets bldOrdered By: Dr. Au on 09-06-2022 Platelets (Bld) [#/Vol] 155 10*3/uL 150-450 [facility] Serum or plasma albumin aubree urement (mass/volume)Ordered By: Dr. Au on 09-06-2022 Albumin [Mass/Vol] 2.9 g/dL 3.2-5.0 [facility] Serum or plasma calcium aubree urement (mass/volume)Ordered By: Dr. Au on 09-06-2022 Calcium [Mass/Vol] 9.2 mg/dL 8.5-10.1 [facility] Serum or plasma creatinine m easurement (mass/volume)Ordered By: Dr. Au on 09-06-2022 Creatinine [Mass/Vol] 2.53 mg/dL 0.70-1.30 [facility] Comment on above: The validity of the calculated GFR & GFRAA in patients over 70 years has not been determined. Clinical correlation is essential. Serum or plasma ferritin laurie surement (mass/volume)Ordered By: Dr. Au on 09-06-2022 Ferritin [Mass/Vol] 172 ng/mL 26-388 [facility] Serum or plasma iron saturat ion measurement (mass fraction)Ordered By: Dr. Au on 09-06-2022 Iron saturation [Mass fraction] 24.2 % 15.0-55.0 [facility] Serum or plasma urea nitroge n measurement (mass/volume)Ordered By: Dr. Au on 09-06-2022 Urea nitrogen [Mass/Vol] 54 mg/dL 7-18 [facility] Basophil percentageOrdered B y: Dr. Espino on 08-27-2022 Bilirubin [Mass/Vol] 0.90 mg/dL 0.20-1.00 [facility] Comment on above: For patients on eltr ombopag therapy, use of Dimension [place] TBIL is not recommended. Chloride [Moles/Vol] 103 mmol/L 98-107 [facility] Glucose [Mass/Vol] 114 mg/dL 74-106 [facility] Comment on above: Fasting Glucose resu lt from 100 to 125 mg/dL suggests IMPAIRED HOMEOSTASIS per A.D.A. criteria. Potassium [Moles/Vol] 4.1 mmol/L 3.5-5.1 [facility] Protein [Mass/Vol] 8.0 g/dL 6.4-8.2 [facility] Sodium [Moles/Vol] 141 mmol/L 136-145 [facility] WBC (Bld) [#/Vol] 9.5 10*3/uL 4.4-11.0 [facility] Blood erythrocytes count (nu mber/volume)Ordered By: Dr. Espino on 08-27-2022 RBC (Bld) [#/Vol] 3.64 10*6/uL 4.6-6.2 [facility] Blood hemoglobin measurement (mass/volume)Ordered By: Dr. Espino on 08-27-2022 Hemoglobin (Bld) [Mass/Vol] 11.3 g/dL 13.0-16.5 [facility] Blood platelet mean volumeOr dered By: Dr. Espino on 08-27-2022 Platelet mean volume (Bld) [Entitic vol] 10.9 fL 6.2-12.0 [facility] Determination of erythrocyte mean corpuscular volume (MCV)Ordered By: Dr. Espino on 08-27-2022 MCV (RBC) [Entitic vol] 99.5 fL 80-94 [facility] Hematocrit Auto (Bld) [Volum e fraction]Ordered By: Dr. Espino on 08-27-2022 Hematocrit (Bld) [Volume fraction] 36.2 % 40-54 [facility] Laboratory - Chemistry and C hemistry - challengeOrdered By: Dr. Espino on 08-27-2022 ALP [Catalytic activity/Vol] 127 U/L 45-117 [facility] ALT [Catalytic activity/Vol] 19 U/L 16-61 [facility] CO2 [Moles/Vol] 32.0 mmol/L 21.0-32.0 [facility] Globulin (S) [Mass/Vol] 5.0 g/dL 2.2-4.2 [facility] Urea nitrogen/Creatinine [Mass ratio] 17.8 mg/mg 10-20 [facility] Laboratory - Hematology and Cell countsOrdered By: Dr. Espino on 08-27-2022 Erythrocyte distribution width (RBC) [Entitic vol] 51.9 fL 35.1-43.9 [facility] Erythrocyte distribution width (RBC) [Ratio] 14.4 % 11.6-14.6 [facility] MCH (RBC) [Entitic mass] 31.0 pg 27.0-32.0 [facility] MCHC Auto (RBC) [Mass/Vol]Or dered By: Dr. Espino on 08-27-2022 MCHC (RBC) [Mass/Vol] 31.2 g/dL 32-36 [facility] No Panel InformationOrdered By: Dr. Espino on 08-27-2022 Estimated GFR (MDRD) Amer 29 mL/min >60 [facility] Comment on above: GFR Calc Estimated GFR (MDRD) Non-Af Amer 24 mL/min >60 [facility] Comment on above: Non- GFR Calc Platelets bldOrdered By: Dr. Espino on 08-27-2022 Platelets (Bld) [#/Vol] 147 10*3/uL 150-450 [facility] Serum or plasma albumin aubree urement (mass/volume)Ordered By: Dr. Espino on 08-27-2022 Albumin [Mass/Vol] 3.0 g/dL 3.2-5.0 [facility] Serum or plasma albumin/glob ulin mass ratioOrdered By: Dr. Espino on 08-27-2022 Albumin/Globulin [Mass ratio] 0.6 {ratio} 0.9-2.4 [facility] Serum or plasma calcium aubree urement (mass/volume)Ordered By: Dr. Espino on 09-30-2022 Calcium [Mass/Vol] 9.5 mg/dL 8.5-10.1 [facility] Serum or plasma creatinine m easurement (mass/volume)Ordered By: Dr. Espino on 08-27-2022 Creatinine [Mass/Vol] 2.69 mg/dL 0.70-1.30 [facility] Comment on above: The validity of the calculated GFR & GFRAA in patients over 70 years has not been determined. Clinical correlation is essential. Serum or plasma urea nitroge n measurement (mass/volume)Ordered By: Dr. Espino on 08-27-2022 Urea nitrogen [Mass/Vol] 48 mg/dL 7-18 [facility] Thin prep Papanicolaou smear with manual screeningOrdered By: Dr. Espino on 08-27-2022 Thin prep Papanicolaou smear with manual screening 20 U/L 15-37 [facility] Thin prep Papanicolaou smear with manual screening 6 5-15 [facility] Whole blood hemoglobin A1c/t otal hemoglobin ratio (mass fraction)Ordered By: Dr. Espino on 08-27-2022 HbA1c (Bld) [Mass fraction] 6.3 % 3.8-5.6 [facility] Comment on above: Normal < 5.7 % Predi abetic 5.7 - 6.4 % Diabetic >or= 6.5 % Please note range changes. Absolute lymphocyte counton 08-09-2022 Lymphocytes Auto (Unsp spec) [#/Vol] 2.02 10*3/uL 0.83-4.51 [facility] Work Phone: Basophil percentageon 2021 Basophil percentage 3.8 mg/dL 2.5-4.9 [facility] Work Phone: Basophils/100 WBC (Bld) 0.2 % 0-1 [facility] Work Phone: Chloride [Moles/Vol] 106 mmol/L 98-107 [facility] Work Phone: Eosinophils/100 WBC (Bld) 3.5 % 0-5 [facility] Work Phone: Glucose [Mass/Vol] 114 mg/dL 74-106 [facility] Work Phone: Comment on above: Fasting Glucose resu lt from 100 to 125 mg/dL suggests IMPAIRED HOMEOSTASIS per A.D.A. criteria. Neutrophils (Bld) [#/Vol] 6.9 10*3/uL 2.0-7.7 [facility] Work Phone: Neutrophils/100 WBC (Bld) 68.8 % 47-70 [facility] Work Phone: [phone] Potassium [Moles/Vol] 4.3 mmol/L 3.5-5.1 [facility] Work Phone: Sodium [Moles/Vol] 141 mmol/L 136-145 [facility] Work Phone: WBC (Bld) [#/Vol] 10.0 10*3/uL 4.4-11.0 [facility] Work Phone: Blood erythrocytes count (nu mber/volume)on 08-09-2022 RBC (Bld) [#/Vol] 3.45 10*6/uL 4.6-6.2 [facility] Work Phone: Blood hemoglobin measurement (mass/volume)on 08-09-2022 Hemoglobin (Bld) [Mass/Vol] 11.2 g/dL 13.0-16.5 [facility] Work Phone: Blood lymphocytes/100 leukoc yteson 08-09-2022 Lymphocytes/100 WBC (Bld) 20.2 % 19-41 [facility] Work Phone: [phone] Blood monocytes/100 leukocyt eson 08-09-2022 Monocytes/100 WBC (Bld) 6.9 % 0-10 [facility] Work Phone: Blood platelet mean volumeon 08-09-2022 Platelet mean volume (Bld) [Entitic vol] 10.0 fL 6.2-12.0 [facility] Work Phone: Determination of erythrocyte mean corpuscular volume (MCV)on 08-09-2022 MCV (RBC) [Entitic vol] 98.6 fL 80-94 [facility] Work Phone: [phone] Hematocrit Auto (Bld) [Volum e fraction]on 08-09-2022 Hematocrit (Bld) [Volume fraction] 34.0 % 40-54 [facility] Work Phone: [phone] Iron measurement (mass/mass) on 08-09-2022 Iron (Unsp spec) [Mass/Mass] 74 ug/dL 65-175 [facility] Work Phone: [phone] Laboratory - Chemistry and C hemistry - challengeon 08-09-2022 CO2 [Moles/Vol] 29.0 mmol/L 21.0-32.0 [facility] Work Phone: [phone] Urea nitrogen/Creatinine [Mass ratio] 24.0 mg/mg 10-20 [facility] Work Phone: [phone] Laboratory - Hematology and Cell countson 08-09-2022 Erythrocyte distribution width (RBC) [Entitic vol] 52.4 fL 35.1-43.9 [facility] Work Phone: [phone] Erythrocyte distribution width (RBC) [Ratio] 14.6 % 11.6-14.6 [facility] Work Phone: [phone] Immature granulocytes/100 WBC (Bld) 0.400 % 0.0-0.9 [facility] Work Phone: [phone] Comment on above: IG% - Immature Granu locytes (promyelocytes, myelocytes and metamyelocytes) > 1% indicates that a LEFT SHIFT is Present. MCH (RBC) [Entitic mass] 32.5 pg 27.0-32.0 [facility] Work Phone: [phone] Nucleated RBC/100 WBC (Bld) [Ratio] 0 % 0-5 [facility] Work Phone: [phone] MCHC Auto (RBC) [Mass/Vol]on 08-09-2022 MCHC (RBC) [Mass/Vol] 32.9 g/dL 32-36 [facility] Work Phone: [phone] Panel Informationon 08-09 Estimated GFR (MDRD) Amer 27 mL/min >60 [facility] Work Phone: Comment on above: GFR Calc Estimated GFR (MDRD) Non-Af Amer 23 mL/min >60 [facility] Work Phone: Comment on above: Non- GFR Calc Total Iron Binding Capacity 217 ug/dL 250-450 [facility] Work Phone: Platelets bldon 08-09-2022 Platelets (Bld) [#/Vol] 147 10*3/uL 150-450 [facility] Work Phone: Serum or plasma albumin aubree urement (mass/volume)on 08-09-2022 Albumin [Mass/Vol] 3.1 g/dL 3.2-5.0 [facility] Work Phone: Serum or plasma calcium aubree urement (mass/volume)on 08-09-2022 Calcium [Mass/Vol] 10.8 mg/dL 8.5-10.1 [facility] Work Phone: Serum or plasma creatinine m easurement (mass/volume)on 08-09-2022 Creatinine [Mass/Vol] 2.87 mg/dL 0.70-1.30 [facility] Work Phone: Comment on above: The validity of the calculated GFR & GFRAA in patients over 70 years has not been determined. Clinical correlation is essential. Serum or plasma ferritin laurie surement (mass/volume)on 08-09-2022 Ferritin [Mass/Vol] 194 ng/mL 26-388 [facility] Work Phone: Serum or plasma iron saturat ion measurement (mass fraction)on 08-09-2022 Iron saturation [Mass fraction] 34.1 % 15.0-55.0 [facility] Work Phone: Serum or plasma urea nitroge n measurement (mass/volume)on 08-09-2022 Urea nitrogen [Mass/Vol] 69 mg/dL 7-18 [facility] Work Phone: INR in Blood by Coagulation assayon 07-16-2022 INR Coag (Bld) [Relative time] 1.7 {INR} [facility] Work Phone: Laboratory - Coagulationon 0 07-16-2022 PT Coag (PPP) [Time] 19.5 s 11.7-14.9 [facility] Work Phone: Absolute lymphocyte counton 07-12-2022 Lymphocytes Auto (Unsp spec) [#/Vol] 1.55 10*3/uL 0.83-4.51 [facility] Work Phone: Basophil percentageon 2021 Basophil percentage 2.9 mg/dL 2.5-4.9 [facility] Work Phone: Basophils/100 WBC (Bld) 0.4 % 0-1 [facility] Work Phone: Chloride [Moles/Vol] 107 mmol/L 98-107 [facility] Work Phone: Eosinophils/100 WBC (Bld) 2.8 % 0-5 [facility] Work Phone: Glucose [Mass/Vol] 182 mg/dL 74-106 [facility] Work Phone: Comment on above: Fasting Glucose resu lt greater than or equal to 126 mg/dL suggests DIABETES MELLITUS per A.D.A. criteria. Neutrophils (Bld) [#/Vol] 6.0 10*3/uL 2.0-7.7 [facility] Work Phone: Neutrophils/100 WBC (Bld) 70.9 % 47-70 [facility] Work Phone: Potassium [Moles/Vol] 4.2 mmol/L 3.5-5.1 [facility] Work Phone: Sodium [Moles/Vol] 139 mmol/L 136-145 [facility] Work Phone: WBC (Bld) [#/Vol] 8.5 10*3/uL 4.4-11.0 [facility] Work Phone: Blood erythrocytes count (nu mber/volume)on 07-12-2022 RBC (Bld) [#/Vol] 3.25 10*6/uL 4.6-6.2 [facility] Work Phone: Blood hemoglobin measurement (mass/volume)on 07-12-2022 Hemoglobin (Bld) [Mass/Vol] 10.3 g/dL 13.0-16.5 [facility] Work Phone: Blood lymphocytes/100 leukoc yteson 07-12-2022 Lymphocytes/100 WBC (Bld) 18.2 % 19-41 [facility] Work Phone: [phone] Blood monocytes/100 leukocyt eson 07-12-2022 Monocytes/100 WBC (Bld) 6.9 % 0-10 [facility] Work Phone: [phone] Blood platelet mean volumeon 07-12-2022 Platelet mean volume (Bld) [Entitic vol] 10.7 fL 6.2-12.0 [facility] Work Phone: Determination of erythrocyte mean corpuscular volume (MCV)on 07-12-2022 MCV (RBC) [Entitic vol] 97.2 fL 80-94 [facility] Work Phone: [phone] Hematocrit Auto (Bld) [Volum e fraction]on 07-12-2022 Hematocrit (Bld) [Volume fraction] 31.6 % 40-54 [facility] Work Phone: [phone] Iron measurement (mass/mass) on 07-12-2022 Iron (Unsp spec) [Mass/Mass] 66 ug/dL 65-175 [facility] Work Phone: [phone] Laboratory - Chemistry and C hemistry - challengeon 07-12-2022 CO2 [Moles/Vol] 27.0 mmol/L 21.0-32.0 [facility] Work Phone: [phone] Urea nitrogen/Creatinine [Mass ratio] 24.0 mg/mg 10-20 [facility] Work Phone: [phone] Laboratory - Hematology and Cell countson 07-12-2022 Erythrocyte distribution width (RBC) [Entitic vol] 50.8 fL 35.1-43.9 [facility] Work Phone: [phone] Erythrocyte distribution width (RBC) [Ratio] 14.6 % 11.6-14.6 [facility] Work Phone: [phone] Immature granulocytes/100 WBC (Bld) 0.800 % 0.0-0.9 [facility] Work Phone: [phone] Comment on above: IG% - Immature Granu locytes (promyelocytes, myelocytes and metamyelocytes) > 1% indicates that a LEFT SHIFT is Present. MCH (RBC) [Entitic mass] 31.7 pg 27.0-32.0 [facility] Work Phone: [phone] Nucleated RBC/100 WBC (Bld) [Ratio] 0 % 0-5 [facility] Work Phone: [phone] MCHC Auto (RBC) [Mass/Vol]on 07-12-2022 MCHC (RBC) [Mass/Vol] 32.6 g/dL 32-36 [facility] Work Phone: [phone] No Panel Informationon 07-12 Estimated GFR (MDRD) Amer 30 mL/min >60 [facility] Work Phone: [phone] Comment on above: GFR Calc Estimated GFR (MDRD) Non-Af Amer 25 mL/min >60 [facility] Work Phone: [phone] Comment on above: Non- GFR Calc Total Iron Binding Capacity 228 ug/dL 250-450 [facility] Work Phone: [phone] Platelets bldon 07-12-2022 Platelets (Bld) [#/Vol] 154 10*3/uL 150-450 [facility] Work Phone: [phone] Serum or plasma albumin aubree urement (mass/volume)on 07-12-2022 Albumin [Mass/Vol] 2.8 g/dL 3.2-5.0 [facility] Work Phone: [phone] Serum or plasma calcium aubree urement (mass/volume)on 07-12-2022 Calcium [Mass/Vol] 9.2 mg/dL 8.5-10.1 [facility] Work Phone: [phone] Serum or plasma creatinine m easurement (mass/volume)on 07-12-2022 Creatinine [Mass/Vol] 2.63 mg/dL 0.70-1.30 [facility] Work Phone: Comment on above: The validity of the calculated GFR & GFRAA in patients over 70 years has not been determined. Clinical correlation is essential. Serum or plasma ferritin laurie surement (mass/volume)on 07-12-2022 Ferritin [Mass/Vol] 227 ng/mL 26-388 [facility] Work Phone: [phone] Serum or plasma iron saturat ion measurement (mass fraction)on 07-12-2022 Iron saturation [Mass fraction] 28.9 % 15.0-55.0 [facility] Work Phone: [phone] Serum or plasma urea nitroge n measurement (mass/volume)on 07-12-2022 Urea nitrogen [Mass/Vol] 63 mg/dL 7-18 [facility] Work Phone: [phone] Basophil percentageon 2021 Bilirubin [Mass/Vol] 0.90 mg/dL 0.20-1.00 [facility] Work Phone: [phone] Comment on above: For patients on eltr ombopag therapy, use of Dimension [place] TBIL is not recommended. Chloride [Moles/Vol] 104 mmol/L 98-107 [facility] Work Phone: [phone] Glucose [Mass/Vol] 147 mg/dL 74-106 [facility] Work Phone: [phone] Comment on above: Fasting Glucose resu lt greater than or equal to 126 mg/dL suggests DIABETES MELLITUS per A.D.A. criteria. Potassium [Moles/Vol] 4.6 mmol/L 3.5-5.1 [facility] Work Phone: [phone] Protein [Mass/Vol] 8.2 g/dL 6.4-8.2 [facility] Work Phone: [phone] Sodium [Moles/Vol] 137 mmol/L 136-145 [facility] Work Phone: [phone] WBC (Bld) [#/Vol] 9.1 10*3/uL 4.4-11.0 [facility] Work Phone: Blood erythrocytes count (nu mber/volume)on 07-09-2022 RBC (Bld) [#/Vol] 3.47 10*6/uL 4.6-6.2 [facility] Work Phone: Blood hemoglobin measurement (mass/volume)on 07-09-2022 Hemoglobin (Bld) [Mass/Vol] 10.8 g/dL 13.0-16.5 [facility] Work Phone: Blood platelet mean volumeon 07-09-2022 Platelet mean volume (Bld) [Entitic vol] 11.0 fL 6.2-12.0 [facility] Work Phone: Determination of erythrocyte mean corpuscular volume (MCV)on 07-09-2022 MCV (RBC) [Entitic vol] 98.8 fL 80-94 [facility] Work Phone: Hematocrit Auto (Bld) [Volum e fraction]on 07-09-2022 Hematocrit (Bld) [Volume fraction] 34.3 % 40-54 [facility] [facility] Work Phone: INR in Blood by Coagulation assayon 07-09-2022 INR Coag (Bld) [Relative time] 2.7 {INR} [facility] Work Phone: Laboratory - Chemistry and C hemistry - challengeon 07-09-2022 ALP [Catalytic activity/Vol] 145 U/L 45-117 [facility] Work Phone: [phone] ALT [Catalytic activity/Vol] 19 U/L 16-61 [facility] Work Phone: [phone] CO2 [Moles/Vol] 29.0 mmol/L 21.0-32.0 [facility] Work Phone: [phone] Globulin (S) [Mass/Vol] 5.2 g/dL 2.2-4.2 [facility] Work Phone: Natriuretic peptide B (Bld) [Mass/Vol] 265.9 pg/mL 0-100 [facility] Work Phone: Urea nitrogen/Creatinine [Mass ratio] 26.0 mg/mg 10-20 [facility] Work Phone: Laboratory - Coagulationon 0 07-09-2022 PT Coag (PPP) [Time] 28.2 s 11.7-14.9 [facility] Work Phone: Laboratory - Hematology and Cell countson 07-09-2022 Erythrocyte distribution width (RBC) [Entitic vol] 51.2 fL 35.1-43.9 [facility] Work Phone: Erythrocyte distribution width (RBC) [Ratio] 14.2 % 11.6-14.6 [facility] Work Phone: MCH (RBC) [Entitic mass] 31.1 pg 27.0-32.0 [facility] Work Phone: MCHC Auto (RBC) [Mass/Vol]on 07-09-2022 MCHC (RBC) [Mass/Vol] 31.5 g/dL 32-36 [facility] Work Phone: No Panel Informationon 07-09 Estimated GFR (MDRD) Amer 32 mL/min >60 [facility] Work Phone: Comment on above: GFR Calc Estimated GFR (MDRD) Non-Af Amer 27 mL/min >60 [facility] Work Phone: Comment on above: Non- GFR Calc Platelets bldon 07-09-2022 Platelets (Bld) [#/Vol] 148 10*3/uL 150-450 [facility] Work Phone: Serum or plasma albumin aubree urement (mass/volume)on 07-09-2022 Albumin [Mass/Vol] 3.0 g/dL 3.2-5.0 [facility] Work Phone: Serum or plasma albumin/glob ulin mass ratioon 07-09-2022 Albumin/Globulin [Mass ratio] 0.6 {ratio} 0.9-2.4 [facility] Work Phone: Serum or plasma calcium aubree urement (mass/volume)on 07-09-2022 Calcium [Mass/Vol] 9.0 mg/dL 8.5-10.1 [facility] Work Phone: Serum or plasma creatinine m easurement (mass/volume)on 07-09-2022 Creatinine [Mass/Vol] 2.50 mg/dL 0.70-1.30 [facility] Work Phone: Comment on above: The validity of the calculated GFR & GFRAA in patients over 70 years has not been determined. Clinical correlation is essential. Serum or plasma urea nitroge n measurement (mass/volume)on 07-09-2022 Urea nitrogen [Mass/Vol] 65 mg/dL 7-18 [facility] Work Phone: Thin prep Papanicolaou smear with manual screeningon 07-09-2022 Thin prep Papanicolaou smear with manual screening 24 U/L 15-37 [facility] Work Phone: Thin prep Papanicolaou smear with manual screening 4 5-15 [facility] Work Phone: Basophil percentageon 2021 Bilirubin [Mass/Vol] 0.60 mg/dL 0.20-1.00 [facility] Work Phone: Comment on above: For patients on eltr ombopag therapy, use of Dimension [place] TBIL is not recommended. Chloride [Moles/Vol] 105 mmol/L 98-107 [facility] Work Phone: Cholesterol [Mass/Vol] 92 mg/dL <200 [facility] Work Phone: Comment on above: <200 mg/dL Desirable 200-240 mg/dL Borderline >240 mg/dL High Risk Glucose [Mass/Vol] 114 mg/dL 74-106 [facility] Work Phone: Comment on above: Fasting Glucose resu lt from 100 to 125 mg/dL suggests IMPAIRED HOMEOSTASIS per A.D.A. criteria. Potassium [Moles/Vol] 4.5 mmol/L 3.5-5.1 [facility] Work Phone: Protein [Mass/Vol] 8.0 g/dL 6.4-8.2 [facility] Work Phone: Sodium [Moles/Vol] 139 mmol/L 136-145 [facility] Work Phone: Triglyceride [Mass/Vol] 114 mg/dL <199 [facility] Work Phone: Comment on above: The drugs N-Acetylcy steine and Metamizole may falsely depress this assay.Serum Triglycerides Reference Interval Normal <150 mg/dL Borderline high 150 - 199 mg/dL High 200 - 499 mg/dL Very High > or = 500 mg/dL INR in Blood by Coagulation assayon 06-18-2022 INR Coag (Bld) [Relative time] 2.8 {INR} [facility] Work Phone: Laboratory - Chemistry and C hemistry - challengeon 06-18-2022 ALP [Catalytic activity/Vol] 132 U/L 45-117 [facility] Work Phone: ALT [Catalytic activity/Vol] 19 U/L 16-61 [facility] Work Phone: CO2 [Moles/Vol] 30.0 mmol/L 21.0-32.0 [facility] Work Phone: Free T4 [Mass/Vol] 0.80 ng/dL 0.76-1.46 [facility] Work Phone: Globulin (S) [Mass/Vol] 5.0 g/dL 2.2-4.2 [facility] Work Phone: Urea nitrogen/Creatinine [Mass ratio] 19.9 mg/mg 10-20 [facility] Work Phone: Laboratory - Coagulationon 0 06-18-2022 PT Coag (PPP) [Time] 29.3 s 11.7-14.9 [facility] Work Phone: No Panel Informationon 06-18 Estimated GFR (MDRD) Amer 29 mL/min >60 [facility] Work Phone: Comment on above: GFR Calc Estimated GFR (MDRD) Non-Af Amer 24 mL/min >60 [facility] Work Phone: Comment on above: Non- GFR Calc Hepatitis C Antibody Non-Reactive Nonreactive [facility] Work Phone: Comment on above: Non Reactive: < 0.8 Equivocal: >/= 0.8 to < 1.0 Reactive: >/= 1.0The [facility] recommends that a reactive/equivocal HCV antibody result be followed up by the HCV Nucleic Acid Amplificationtest (609227) Thyroid Stimulating Hormone (TSH) 5.65 uIU/mL 0.358-3.74 [facility] Work Phone: Urine Microalbumin/Creatinine Ratio 173.8 mg/g CRE <30 [facility] Work Phone: Vitamin D 25-Hydroxy 48.5 ng/mL [facility] Work Phone: Comment on above: Vitamin D 25(OH) Sta tus Range Deficiency <20 ng/mL (50nmol/L) Insufficiency 20 - 30 ng/mL (50 - 75 nmol/L) Sufficiency 30 - 100 ng/mL (75 - 250 nmol/L) Toxicity >100 ng/mL (>250 nmol/L) Serum or plasma albumin aubree urement (mass/volume)on 06-18-2022 Albumin [Mass/Vol] 3.0 g/dL 3.2-5.0 [facility] Work Phone: [phone] Serum or plasma albumin/glob ulin mass ratioon 06-18-2022 Albumin/Globulin [Mass ratio] 0.6 {ratio} 0.9-2.4 [facility] Work Phone: [phone] Serum or plasma calcium aubree urement (mass/volume)on 06-18-2022 Calcium [Mass/Vol] 9.3 mg/dL 8.5-10.1 [facility] Work Phone: [phone] Serum or plasma cholesterol in HDL measurement (mass/volume)on 06-18-2022 Cholesterol in HDL [Mass/Vol] 31 mg/dL >40 [facility] Work Phone: Comment on above: The drugs N-Acetylcy steine and Metamizole may falsely depress this assay. Reference Range HDL <40 mg/dL Low HDL Cholesterol HDL >or= 60 mg/dL High HDL Cholesterol Serum or plasma cholesterol in VLDL measurement (mass/volume)on 06-18-2022 Cholesterol in VLDL [Mass/Vol] 23 mg/dL 5-40 [facility] Work Phone: [phone] Serum or plasma creatinine m easurement (mass/volume)on 06-18-2022 Creatinine [Mass/Vol] 2.76 mg/dL 0.70-1.30 [facility] Work Phone: Comment on above: The validity of the calculated GFR & GFRAA in patients over 70 years has not been determined. Clinical correlation is essential. Serum or plasma low density lipoprotein (LDL) cholesterol measurement (mass/volume)on 06-18-2022 Cholesterol in LDL [Mass/Vol] 38 mg/dL 0-130 [facility] Work Phone: [phone] Serum or plasma urea nitroge n measurement (mass/volume)on 06-18-2022 Urea nitrogen [Mass/Vol] 55 mg/dL 7-18 [facility] Work Phone: Thin prep Papanicolaou smear with manual screeningon 06-18-2022 Thin prep Papanicolaou smear with manual screening 19 U/L 15-37 [facility] Work Phone: [phone] Thin prep Papanicolaou smear with manual screening 4 5-15 [facility] Work Phone: [phone] Thin prep Papanicolaou smear with manual screening 285.0 mg/L NO RANGE EST. [facility] Work Phone: [phone] Urine creatinine measurement (mass/volume)on 06-18-2022 Creatinine (U) [Mass/Vol] 164.00 mg/dL NO RANGE EST. [facility] Work Phone: Absolute lymphocyte counton 06-14-2022 Lymphocytes Auto (Unsp spec) [#/Vol] 1.51 10*3/uL 0.83-4.51 [facility] Work Phone: Basophil percentageon 2021 Basophil percentage 2.6 mg/dL 2.5-4.9 [facility] Work Phone: Basophils/100 WBC (Bld) 0.3 % 0-1 [facility] Work Phone: Chloride [Moles/Vol] 104 mmol/L 98-[address] [facility] Work Phone: Eosinophils/100 WBC (Bld) 2.6 % 0-5 [facility] Work Phone: Glucose [Mass/Vol] 195 mg/dL 74-106 [facility] Work Phone: Comment on above: Fasting Glucose resu lt greater than or equal to 126 mg/dL suggests DIABETES MELLITUS per A.D.A. criteria. Neutrophils (Bld) [#/Vol] 6.3 10*3/uL 2.0-7.7 [facility] Work Phone: Neutrophils/100 WBC (Bld) 72.7 % 47-70 [facility] Work Phone: Potassium [Moles/Vol] 4.2 mmol/L 3.5-5.1 [facility] Work Phone: Sodium [Moles/Vol] 141 mmol/L 136-145 [facility] Work Phone: WBC (Bld) [#/Vol] 8.7 10*3/uL 4.4-11.0 [facility] Work Phone: Blood erythrocytes count (nu mber/volume)on 06-14-2022 RBC (Bld) [#/Vol] 3.50 10*6/uL 4.6-6.2 [facility] Work Phone: Blood hemoglobin measurement (mass/volume)on 06-14-2022 Hemoglobin (Bld) [Mass/Vol] 10.9 g/dL 13.0-16.5 [facility] Work Phone: Blood lymphocytes/100 leukoc yteson 06-14-2022 Lymphocytes/100 WBC (Bld) 17.4 % 19-41 [facility] Work Phone: Blood monocytes/100 leukocyt eson 06-14-2022 Monocytes/100 WBC (Bld) 6.4 % 0-10 [facility] Work Phone: Blood platelet mean volumeon 06-14-2022 Platelet mean volume (Bld) [Entitic vol] 10.3 fL 6.2-12.0 [facility] Work Phone: Determination of erythrocyte mean corpuscular volume (MCV)on 06-14-2022 MCV (RBC) [Entitic vol] 100.0 fL 80-94 [facility] Work Phone: Hematocrit Auto (Bld) [Volum e fraction]on 06-14-2022 Hematocrit (Bld) [Volume fraction] 35.0 % 40-54 [facility] Work Phone: Iron measurement (mass/mass) on 06-14-2022 Iron (Unsp spec) [Mass/Mass] 62 ug/dL 65-175 [facility] Work Phone: Laboratory - Chemistry and C hemistry - challengeon 06-14-2022 CO2 [Moles/Vol] 31.0 mmol/L 21.0-32.0 [facility] Work Phone: Urea nitrogen/Creatinine [Mass ratio] 22.4 mg/mg 10-20 [facility] Work Phone: Laboratory - Hematology and Cell countson 06-14-2022 Erythrocyte distribution width (RBC) [Entitic vol] 50.7 fL 35.1-43.9 [facility] Work Phone: [phone] Erythrocyte distribution width (RBC) [Ratio] 14.1 % 11.6-14.6 [facility] Work Phone: Immature granulocytes/100 WBC (Bld) 0.600 % 0.0-0.9 [facility] Work Phone: Comment on above: IG% - Immature Granu locytes (promyelocytes, myelocytes and metamyelocytes) > 1% indicates that a LEFT SHIFT is Present. MCH (RBC) [Entitic mass] 31.1 pg 27.0-32.0 [facility] Work Phone: Nucleated RBC/100 WBC (Bld) [Ratio] 0 % 0-5 [facility] Work Phone: [phone] MCHC Auto (RBC) [Mass/Vol]on 06-14-2022 MCHC (RBC) [Mass/Vol] 31.1 g/dL 32-36 [facility] Work Phone: No Panel Informationon 06-14 Estimated Creatinine Clearance Calc 19.46 ml/min [facility] Work Phone: [phone] Estimated GFR (MDRD) Amer 31 mL/min >60 [facility] Work Phone: Comment on above: GFR Calc Estimated GFR (MDRD) Non-Af Amer 25 mL/min >60 [facility] Work Phone: Comment on above: Non- GFR Calc Parathyroid Hormone (Intact) 39.9 pg/mL 18.4-80.1 [facility] Work Phone: Total Iron Binding Capacity 252 ug/dL 250-450 [facility] Work Phone: Platelets bldon 06-14-2022 Platelets (Bld) [#/Vol] 139 10*3/uL 150-450 [facility] Work Phone: [phone] Serum or plasma albumin aubree urement (mass/volume)on 06-14-2022 Albumin [Mass/Vol] 3.0 g/dL 3.2-5.0 [facility] Work Phone: [phone] Serum or plasma calcium aubree urement (mass/volume)on 06-14-2022 Calcium [Mass/Vol] 9.2 mg/dL 8.5-10.1 [facility] Work Phone: [phone] Serum or plasma creatinine m easurement (mass/volume)on 06-14-2022 Creatinine [Mass/Vol] 2.59 mg/dL 0.70-1.30 [facility] Work Phone: Comment on above: The validity of the calculated GFR & GFRAA in patients over 70 years has not been determined. Clinical correlation is essential. Serum or plasma ferritin laurie surement (mass/volume)on 06-14-2022 Ferritin [Mass/Vol] 210 ng/mL 26-388 [facility] Work Phone: [phone] Serum or plasma iron saturat ion measurement (mass fraction)on 06-14-2022 Iron saturation [Mass fraction] 24.6 % 15.0-55.0 [facility] Work Phone: [phone] Serum or plasma urea nitroge n measurement (mass/volume)on 06-14-2022 Urea nitrogen [Mass/Vol] 58 mg/dL 06-14 [facility] Work Phone: Basophil percentageon 2021 Bilirubin [Mass/Vol] 0.80 mg/dL 0.20-1.00 [facility] Work Phone: [phone] Comment on above: For patients on eltr ombopag therapy, use of Dimension [place] TBIL is not recommended. Chloride [Moles/Vol] 103 mmol/L 98-107 [facility] Work Phone: [phone] Cholesterol [Mass/Vol] 104 mg/dL <200 [facility] Work Phone: [phone] Comment on above: <200 mg/dL Desirable 200-240 mg/dL Borderline >240 mg/dL High Risk Glucose [Mass/Vol] 115 mg/dL 74-106 [facility] Work Phone: [phone] Comment on above: Fasting Glucose resu lt from 100 to 125 mg/dL suggests IMPAIRED HOMEOSTASIS per A.D.A. criteria. Potassium [Moles/Vol] 4.2 mmol/L 3.5-5.1 [facility] Work Phone: [phone] Protein [Mass/Vol] 8.4 g/dL 6.4-8.2 [facility] Work Phone: [phone] Sodium [Moles/Vol] 140 mmol/L 136-145 [facility] Work Phone: [phone] Triglyceride [Mass/Vol] 86 mg/dL <199 [facility] Work Phone: [phone] Comment on above: The drugs N-Acetylcy steine and Metamizole may falsely depress this assay.Serum Triglycerides Reference Interval Normal <150 mg/dL Borderline high 150 - 199 mg/dL High 200 - 499 mg/dL Very High > or = 500 mg/dL WBC (Bld) [#/Vol] 12.5 10*3/uL 4.4-11.0 [facility] Work Phone: [phone] Blood erythrocytes count (nu mber/volume)on 05-18-2022 RBC (Bld) [#/Vol] 3.47 10*6/uL 4.6-6.2 [facility] Work Phone: [phone] Blood hemoglobin measurement (mass/volume)on 05-18-2022 Hemoglobin (Bld) [Mass/Vol] 11.0 g/dL 13.0-16.5 [facility] Work Phone: [phone] Blood platelet mean volumeon 05-18-2022 Platelet mean volume (Bld) [Entitic vol] 10.7 fL 6.2-12.0 [facility] Work Phone: [phone] Determination of erythrocyte mean corpuscular volume (MCV)on 05-18-2022 MCV (RBC) [Entitic vol] 99.7 fL 80-94 [facility] Work Phone: [phone] Hematocrit Auto (Bld) [Volum e fraction]on 05-18-2022 Hematocrit (Bld) [Volume fraction] 34.6 % 40-54 [facility] Work Phone: [phone] Laboratory - Chemistry and C hemistry - challengeon 05-18-2022 ALP [Catalytic activity/Vol] 140 U/L 45-117 [facility] Work Phone: [phone] ALT [Catalytic activity/Vol] 23 U/L 16-61 [facility] Work Phone: [phone] CO2 [Moles/Vol] 29.0 mmol/L 21.0-32.0 [facility] Work Phone: [phone] Globulin (S) [Mass/Vol] 5.5 g/dL 2.2-4.2 [facility] Work Phone: Urea nitrogen/Creatinine [Mass ratio] 23.7 mg/mg 10-20 [facility] Work Phone: [phone] Laboratory - Hematology and Cell countson 05-18-2022 Erythrocyte distribution width (RBC) [Entitic vol] 51.8 fL 35.1-43.9 [facility] Work Phone: Erythrocyte distribution width (RBC) [Ratio] 14.3 % 11.6-14.6 [facility] Work Phone: MCH (RBC) [Entitic mass] 31.7 pg 27.0-32.0 [facility] Work Phone: MCHC Auto (RBC) [Mass/Vol]on 05-18-2022 MCHC (RBC) [Mass/Vol] 31.8 g/dL 32-36 [facility] Work Phone: No Panel Informationon 05-18 Estimated GFR (MDRD) Amer 29 mL/min >60 [facility] Work Phone: Comment on above: GFR Calc Estimated GFR (MDRD) Non-Af Amer 24 mL/min >60 [facility] Work Phone: Comment on above: Non- GFR Calc Thyroid Stimulating Hormone (TSH) 5.11 uIU/mL 0.358-3.74 [facility] Work Phone: Platelets bldon 05-18-2022 Platelets (Bld) [#/Vol] 169 10*3/uL 150-450 [facility] Work Phone: Serum or plasma albumin aubree urement (mass/volume)on 05-18-2022 Albumin [Mass/Vol] 2.9 g/dL 3.2-5.0 [facility] Work Phone: Serum or plasma albumin/glob ulin mass ratioon 05-18-2022 Albumin/Globulin [Mass ratio] 0.5 {ratio} 0.9-2.4 [facility] Work Phone: Serum or plasma calcium aubree urement (mass/volume)on 05-18-2022 Calcium [Mass/Vol] 9.5 mg/dL 8.5-10.1 [facility] Work Phone: Serum or plasma cholesterol in HDL measurement (mass/volume)on 05-18-2022 Cholesterol in HDL [Mass/Vol] 37 mg/dL >40 [facility] Work Phone: Comment on above: The drugs N-Acetylcy steine and Metamizole may falsely depress this assay. Reference Range HDL <40 mg/dL Low HDL Cholesterol HDL >or= 60 mg/dL High HDL Cholesterol Serum or plasma cholesterol in VLDL measurement (mass/volume)on 05-18-2022 Cholesterol in VLDL [Mass/Vol] 17 mg/dL 5-40 [facility] Work Phone: Serum or plasma creatinine m easurement (mass/volume)on 05-18-2022 Creatinine [Mass/Vol] 2.74 mg/dL 0.70-1.30 [facility] Work Phone: Comment on above: The validity of the calculated GFR & GFRAA in patients over 70 years has not been determined. Clinical correlation is essential. Serum or plasma low density lipoprotein (LDL) cholesterol measurement (mass/volume)on 05-18-2022 Cholesterol in LDL [Mass/Vol] 50 mg/dL 0-130 [facility] Work Phone: Serum or plasma urea nitroge n measurement (mass/volume)on 05-18-2022 Urea nitrogen [Mass/Vol] 65 mg/dL 7-18 [facility] Work Phone: [phone] Thin prep Papanicolaou smear with manual screeningon 05-18-2022 Thin prep Papanicolaou smear with manual screening 18 U/L 15-37 [facility] Work Phone: Thin prep Papanicolaou smear with manual screening 8 5-15 [facility] Work Phone: Whole blood hemoglobin A1c/t otal hemoglobin ratio (mass fraction)on 05-18-2022 HbA1c (Bld) [Mass fraction] 6.3 % 3.8-5.6 [facility] Work Phone: Comment on above: Normal < 5.7 % Predi abetic 5.7 - 6.4 % Diabetic >or= 6.5 % Please note range changes. Absolute lymphocyte counton 05-17-2022 Lymphocytes Auto (Unsp spec) [#/Vol] 1.53 10*3/uL 0.83-4.51 [facility] Work Phone: Basophil percentageon 2021 Basophil percentage 3.5 mg/dL 2.5-4.9 [facility] Work Phone: Basophils/100 WBC (Bld) 0.3 % 0-1 [facility] Work Phone: Chloride [Moles/Vol] 104 mmol/L 98-107 [facility] Work Phone: Eosinophils/100 WBC (Bld) 1.8 % 0-5 [facility] Work Phone: Glucose [Mass/Vol] 302 mg/dL 74-106 [facility] Work Phone: Comment on above: Glucose result great er than or equal to 200 mg/dLsuggests DIABETES MELLITUS per A.D.A. criteria. Neutrophils (Bld) [#/Vol] 12.1 10*3/uL 2.0-7.7 [facility] Work Phone: Neutrophils/100 WBC (Bld) 81.8 % 47-70 [facility] Work Phone: Potassium [Moles/Vol] 4.4 mmol/L 3.5-5.1 [facility] Work Phone: Sodium [Moles/Vol] 138 mmol/L 136-145 [facility] Work Phone: WBC (Bld) [#/Vol] 14.8 10*3/uL 4.4-11.0 [facility] Work Phone: Blood erythrocytes count (nu mber/volume)on 05-17-2022 RBC (Bld) [#/Vol] 3.49 10*6/uL 4.6-6.2 [facility] Work Phone: Blood hemoglobin measurement (mass/volume)on 05-17-2022 Hemoglobin (Bld) [Mass/Vol] 11.1 g/dL 13.0-16.5 [facility] Work Phone: Blood lymphocytes/100 leukoc yteson 05-17-2022 Lymphocytes/100 WBC (Bld) 10.3 % 19-41 [facility] Work Phone: [phone] Blood monocytes/100 leukocyt eson 05-17-2022 Monocytes/100 WBC (Bld) 5.1 % 0-10 [facility] Work Phone: Blood platelet mean volumeon 05-17-2022 Platelet mean volume (Bld) [Entitic vol] 10.1 fL 6.2-12.0 [facility] Work Phone: Determination of erythrocyte mean corpuscular volume (MCV)on 05-17-2022 MCV (RBC) [Entitic vol] 99.7 fL 80-94 [facility] Work Phone: Hematocrit Auto (Bld) [Volum e fraction]on 05-17-2022 Hematocrit (Bld) [Volume fraction] 34.8 % 40-54 [facility] Work Phone: Iron measurement (mass/mass) on 05-17-2022 Iron (Unsp spec) [Mass/Mass] 49 ug/dL 65-175 [facility] Work Phone: Laboratory - Chemistry and C hemistry - challengeon 05-17-2022 CO2 [Moles/Vol] 30.0 mmol/L 21.0-32.0 [facility] Work Phone: Urea nitrogen/Creatinine [Mass ratio] 23.1 mg/mg -20 [facility] Work Phone: Laboratory - Hematology and Cell countson 05-17-2022 Erythrocyte distribution width (RBC) [Entitic vol] 51.1 fL 35.1-43.9 [facility] Work Phone: [phone] Erythrocyte distribution width (RBC) [Ratio] 14.2 % 11.6-14.6 [facility] Work Phone: [phone] Immature granulocytes/100 WBC (Bld) 0.700 % 0.0-0.9 [facility] Work Phone: [phone] Comment on above: IG% - Immature Granu locytes (promyelocytes, myelocytes and metamyelocytes) > 1% indicates that a LEFT SHIFT is Present. MCH (RBC) [Entitic mass] 31.8 pg 27.0-32.0 [facility] Work Phone: Nucleated RBC/100 WBC (Bld) [Ratio] 0 % 0-5 [facility] Work Phone: MCHC Auto (RBC) [Mass/Vol]on 05-17-2022 MCHC (RBC) [Mass/Vol] 31.9 g/dL 32-36 [facility] Work Phone: [phone] No Panel Informationon 05-17 Estimated GFR (MDRD) Amer 29 mL/min >60 [facility] Work Phone: [phone] Comment on above: GFR Calc Estimated GFR (MDRD) Non-Af Amer 24 mL/min >60 [facility] Work Phone: [phone] Comment on above: Non- GFR Calc Total Iron Binding Capacity 232 ug/dL 250-450 [facility] Work Phone: [phone] Platelets bldon 05-17-2022 Platelets (Bld) [#/Vol] 156 10*3/uL 150-450 [facility] Work Phone: [phone] Serum or plasma albumin aubree urement (mass/volume)on 05-17-2022 Albumin [Mass/Vol] 3.0 g/dL 3.2-5.0 [facility] Work Phone: [phone] Serum or plasma calcium aubree urement (mass/volume)on 05-17-2022 Calcium [Mass/Vol] 9.8 mg/dL 8.5-10.1 [facility] Work Phone: Serum or plasma creatinine m easurement (mass/volume)on 05-17-2022 Creatinine [Mass/Vol] 2.77 mg/dL 0.70-1.30 [facility] Work Phone: Comment on above: The validity of the calculated GFR & GFRAA in patients over 70 years has not been determined. Clinical correlation is essential. Serum or plasma ferritin laurie surement (mass/volume)on 05-17-2022 Ferritin [Mass/Vol] 307 ng/mL 26-388 [facility] Work Phone: [phone] Serum or plasma iron saturat ion measurement (mass fraction)on 05-17-2022 Iron saturation [Mass fraction] 21.1 % 15.0-55.0 [facility] Work Phone: Serum or plasma urea nitroge n measurement (mass/volume)on 05-17-2022 Urea nitrogen [Mass/Vol] 64 mg/dL 7-18 [facility] Work Phone: Absolute lymphocyte counton 04-12-2022 Lymphocytes Auto (Unsp spec) [#/Vol] 1.61 10*3/uL 0.83-4.51 [facility] Work Phone: Basophil percentageon 2021 Basophil percentage 3.2 mg/dL 2.5-4.9 [facility] Work Phone: Basophils/100 WBC (Bld) 0.3 % 0-1 [facility] Work Phone: Chloride [Moles/Vol] 100 mmol/L 98-107 [facility] Work Phone: Eosinophils/100 WBC (Bld) 1.8 % 0-5 [facility] Work Phone: Glucose [Mass/Vol] 166 mg/dL 74-106 [facility] Work Phone: Comment on above: Fasting Glucose resu lt greater than or equal to 126 mg/dL suggests DIABETES MELLITUS per A.D.A. criteria. Neutrophils (Bld) [#/Vol] 8.3 10*3/uL 2.0-7.7 [facility] Work Phone: Neutrophils/100 WBC (Bld) 75.8 % 47-70 [facility] Work Phone: Potassium [Moles/Vol] 4.5 mmol/L 3.5-5.1 [facility] Work Phone: Sodium [Moles/Vol] 137 mmol/L 136-[facility]: WBC (Bld) [#/Vol] 11.0 10*3/uL 4.4-11.0 [facility] Work Phone: Blood erythrocytes count (nu mber/volume)on 04-12-2022 RBC (Bld) [#/Vol] 3.44 10*6/uL 4.6-6.2 [facility] Work Phone: Blood hemoglobin measurement (mass/volume)on 04-12-2022 Hemoglobin (Bld) [Mass/Vol] 11.1 g/dL 13.0-16.5 [facility] Work Phone: Blood lymphocytes/100 leukoc yteson 04-12-2022 Lymphocytes/100 WBC (Bld) 14.7 % 19-41 [facility] Work Phone: Blood monocytes/100 leukocyt eson 04-12-2022 Monocytes/100 WBC (Bld) 6.9 % 0-10 [facility] Work Phone: [phone] Blood platelet mean volumeon 04-12-2022 Platelet mean volume (Bld) [Entitic vol] 9.4 fL 6.2-12.0 [facility] Work Phone: Determination of erythrocyte mean corpuscular volume (MCV)on 04-12-2022 MCV (RBC) [Entitic vol] 98.8 fL 80-94 [facility] Work Phone: Hematocrit Auto (Bld) [Volum e fraction]on 04-12-2022 Hematocrit (Bld) [Volume fraction] 34.0 % 40-54 [facility] Work Phone: Iron measurement (mass/mass) on 04-12-2022 Iron (Unsp spec) [Mass/Mass] 65 ug/dL 65-175 [facility] Work Phone: [phone] Laboratory - Chemistry and C hemistry - challengeon 04-12-2022 CO2 [Moles/Vol] 31.0 mmol/L 21.0-32.0 [facility] Work Phone: [phone] Urea nitrogen/Creatinine [Mass ratio] 24.7 mg/mg 10-20 [facility] Work Phone: [phone] Laboratory - Hematology and Cell countson 04-12-2022 Erythrocyte distribution width (RBC) [Entitic vol] 51.0 fL 35.1-43.9 [facility] Work Phone: [phone] Erythrocyte distribution width (RBC) [Ratio] 14.2 % 11.6-14.6 [facility] Work Phone: [phone] Immature granulocytes/100 WBC (Bld) 0.500 % 0.0-0.9 [facility] Work Phone: [phone] Comment on above: IG% - Immature Granu locytes (promyelocytes, myelocytes and metamyelocytes) > 1% indicates that a LEFT SHIFT is Present. MCH (RBC) [Entitic mass] 32.3 pg 27.0-32.0 [facility] Work Phone: [phone] Nucleated RBC/100 WBC (Bld) [Ratio] 0 % 0-5 [facility] Work Phone: [phone] MCHC Auto (RBC) [Mass/Vol]on 04-12-2022 MCHC (RBC) [Mass/Vol] 32.6 g/dL 32-36 [facility] Work Phone: [phone] Panel Informationon 04-12 Estimated GFR (MDRD) Amer 32 mL/min >60 [facility] Work Phone: [phone] Comment on above: GFR Calc Estimated GFR (MDRD) Non-Af Amer 26 mL/min >60 [facility] Work Phone: [phone] Comment on above: Non- GFR Calc Total Iron Binding Capacity 228 ug/dL 250-450 [facility] Work Phone: Platelets bldon 04-12-2022 Platelets (Bld) [#/Vol] 140 10*3/uL 150-450 [facility] Work Phone: Serum or plasma albumin aubree urement (mass/volume)on 04-12-2022 Albumin [Mass/Vol] 3.0 g/dL 3.2-5.0 [facility] Work Phone: [phone] Serum or plasma calcium aubree urement (mass/volume)on 04-12-2022 Calcium [Mass/Vol] 9.0 mg/dL 8.5-10.1 [facility] Work Phone: [phone] Serum or plasma creatinine m easurement (mass/volume)on 04-12-2022 Creatinine [Mass/Vol] 2.51 mg/dL 0.70-1.30 [facility] Work Phone: Comment on above: The validity of the calculated GFR & GFRAA in patients over 70 years has not been determined. Clinical correlation is essential. Serum or plasma ferritin laurie surement (mass/volume)on 04-12-2022 Ferritin [Mass/Vol] 250 ng/mL 26-388 [facility] Work Phone: [phone] Serum or plasma iron saturat ion measurement (mass fraction)on 04-12-2022 Iron saturation [Mass fraction] 28.5 % 15.0-55.0 [facility] Work Phone: Serum or plasma urea nitroge n measurement (mass/volume)on 04-12-2022 Urea nitrogen [Mass/Vol] 62 mg/dL 7-18 [facility] Work Phone: Absolute lymphocyte counton 03-29-2022 Lymphocytes Auto (Unsp spec) [#/Vol] 1.98 10*3/uL 0.83-4.51 [facility] Work Phone: [phone] Basophil percentageon 2021 Basophil percentage 2.5 mg/dL 2.5-4.9 [facility] Work Phone: [phone] Basophils/100 WBC (Bld) 0.6 % 0-1 [facility] Work Phone: Chloride [Moles/Vol] 109 mmol/L 98-107 [facility] Work Phone: Eosinophils/100 WBC (Bld) 2.8 % 0-5 [facility] Work Phone: Glucose [Mass/Vol] 121 mg/dL 74-106 [facility] Work Phone: Comment on above: Fasting Glucose resu lt from 100 to 125 mg/dL suggests IMPAIRED HOMEOSTASIS per A.D.A. criteria. Neutrophils (Bld) [#/Vol] 6.7 10*3/uL 2.0-7.7 [facility] Work Phone: Neutrophils/100 WBC (Bld) 68.7 % 47-70 [facility] Work Phone: Potassium [Moles/Vol] 4.4 mmol/L 3.5-5.1 [facility] Work Phone: Sodium [Moles/Vol] 140 mmol/L 136-145 [facility] Work Phone: WBC (Bld) [#/Vol] 9.8 10*3/uL 4.4-11.0 [facility] Work Phone: Blood erythrocytes count (nu mber/volume)on 03-29-2022 RBC (Bld) [#/Vol] 3.33 10*6/uL 4.6-6.2 [facility] Work Phone: Blood hemoglobin measurement (mass/volume)on 03-29-2022 Hemoglobin (Bld) [Mass/Vol] 10.5 g/dL 13.0-16.5 [facility] Work Phone: Blood lymphocytes/100 leukoc yteson 03-29-2022 Lymphocytes/100 WBC (Bld) 20.2 % 19-41 [facility] Work Phone: Blood monocytes/100 leukocyt eson 03-29-2022 Monocytes/100 WBC (Bld) 6.7 % 0-10 [facility] Work Phone: [phone] Blood platelet mean volumeon 03-29-2022 Platelet mean volume (Bld) [Entitic vol] 10.8 fL 6.2-12.0 [facility] Work Phone: [phone] Determination of erythrocyte mean corpuscular volume (MCV)on 03-29-2022 MCV (RBC) [Entitic vol] 100.3 fL 80-94 [facility] Work Phone: [phone] Hematocrit Auto (Bld) [Volum e fraction]on 03-29-2022 Hematocrit (Bld) [Volume fraction] 33.4 % 40-54 [facility] Work Phone: [phone] Iron measurement (mass/mass) on 03-29-2022 Iron (Unsp spec) [Mass/Mass] 71 ug/dL 65-175 [facility] Work Phone: [phone] Laboratory - Chemistry and C hemistry - challengeon 03-29-2022 CO2 [Moles/Vol] 25.0 mmol/L 21.0-32.0 [facility] Work Phone: [phone] Urea nitrogen/Creatinine [Mass ratio] 27.5 mg/mg 10-20 [facility] Work Phone: [phone] Laboratory - Hematology and Cell countson 03-29-2022 Erythrocyte distribution width (RBC) [Entitic vol] 55.0 fL 35.1-43.9 [facility] Work Phone: [phone] Erythrocyte distribution width (RBC) [Ratio] 15.1 % 11.6-14.6 [facility] Work Phone: [phone] Immature granulocytes/100 WBC (Bld) 1.000 % 0.0-0.9 [facility] Work Phone: [phone] Comment on above: IG% - Immature Granu locytes (promyelocytes, myelocytes and metamyelocytes) > 1% indicates that a LEFT SHIFT is Present. MCH (RBC) [Entitic mass] 31.5 pg 27.0-32.0 [facility] Work Phone: [phone] Nucleated RBC/100 WBC (Bld) [Ratio] 0 % 0-5 [facility] Work Phone: MCHC Auto (RBC) [Mass/Vol]on 03-29-2022 MCHC (RBC) [Mass/Vol] 31.4 g/dL 32-36 [facility] Work Phone: No Panel Informationon 03-29 Estimated GFR (MDRD) Amer 37 mL/min >60 [facility] Work Phone: Comment on above: GFR Calc Estimated GFR (MDRD) Non-Af Amer 30 mL/min >60 [facility] Work Phone: Comment on above: Non- GFR Calc Parathyroid Hormone (Intact) 143.9 pg/mL 18.4-80.1 [facility] Work Phone: Total Iron Binding Capacity 242 ug/dL 250-450 [facility] Work Phone: Platelets bldon 03-29-2022 Platelets (Bld) [#/Vol] 164 10*3/uL 150-450 [facility] Work Phone: Serum or plasma albumin aubree urement (mass/volume)on 03-29-2022 Albumin [Mass/Vol] 3.0 g/dL 3.2-5.0 [facility] Work Phone: [phone] Serum or plasma calcium aubree urement (mass/volume)on 03-29-2022 Calcium [Mass/Vol] 8.1 mg/dL 8.5-10.1 [facility] Work Phone: [phone] Serum or plasma creatinine m easurement (mass/volume)on 03-29-2022 Creatinine [Mass/Vol] 2.22 mg/dL 0.70-1.30 [facility] Work Phone: Comment on above: The validity of the calculated GFR & GFRAA in patients over 70 years has not been determined. Clinical correlation is essential. Serum or plasma ferritin laurie surement (mass/volume)on 03-29-2022 Ferritin [Mass/Vol] 209 ng/mL 26-388 [facility] Work Phone: Serum or plasma iron saturat ion measurement (mass fraction)on 03-29-2022 Iron saturation [Mass fraction] 29.3 % 15.0-55.0 [facility] Work Phone: Serum or plasma urea nitroge n measurement (mass/volume)on 03-29-2022 Urea nitrogen [Mass/Vol] 61 mg/dL 7-18 [facility] Work Phone: Serum or plasma uric acid me asurement (mass/volume)on 03-29-2022 Urate [Mass/Vol] 5.8 mg/dL 3.5-7.2 [facility] Work Phone: Comment on above: The drugs N-Acetylcy steine and Metamizole may falsely depress this assay. Urine creatinine measurement (mass/volume)on 03-29-2022 Creatinine (U) [Mass/Vol] 90.50 mg/dL NO RANGE EST. [facility] Work Phone: Urine protein measurement (m ass/volume)on 03-29-2022 Protein (U) [Mass/Vol] 81.6 mg/dL 0.0-11.8 [facility] Work Phone: Urine protein/creatinine mas s ratioon 03-29-2022 Protein/Creatinine (U) [Mass ratio] 902 mg/g CRE 0-200 [facility] Work Phone: Absolute lymphocyte counton 03-15-2022 Lymphocytes Auto (Unsp spec) [#/Vol] 1.54 10*3/uL 0.83-4.51 [facility] Work Phone: Basophil percentageon 2021 Basophil percentage 3.0 mg/dL 2.5-4.9 [facility] Work Phone: Basophils/100 WBC (Bld) 0.3 % 0-1 [facility] Work Phone: Chloride [Moles/Vol] 108 mmol/L 98-[address] [facility] [facility] Work [facility]: Eosinophils/100 WBC (Bld) 1.4 % 0-5 [facility] Work Phone: Glucose [Mass/Vol] 233 mg/dL 74-106 [facility] Work Phone: [phone] Comment on above: Glucose result great er than or equal to 200 mg/dLsuggests DIABETES MELLITUS per A.D.A. criteria. Neutrophils (Bld) [#/Vol] 7.0 10*3/uL 2.0-7.7 [facility] Work Phone: [phone] Neutrophils/100 WBC (Bld) 74.8 % 47-70 [facility] Work Phone: [phone] Potassium [Moles/Vol] 4.5 mmol/L 3.5-5.1 [facility] Work Phone: [phone] Sodium [Moles/Vol] 139 mmol/L 136-145 [facility] Work Phone: [phone] WBC (Bld) [#/Vol] 9.3 10*3/uL 4.4-11.0 [facility] Work Phone: [phone] Blood erythrocytes count (nu mber/volume)on 03-15-2022 RBC (Bld) [#/Vol] 3.12 10*6/uL 4.6-6.2 [facility] Work Phone: [phone] Blood hemoglobin measurement (mass/volume)on 03-15-2022 Hemoglobin (Bld) [Mass/Vol] 9.9 g/dL 13.0-16.5 [facility] Work Phone: [phone] Blood lymphocytes/100 leukoc yteson 03-15-2022 Lymphocytes/100 WBC (Bld) 16.5 % 19-41 [facility] Work Phone: [phone] Blood monocytes/100 leukocyt eson 03-15-2022 Monocytes/100 WBC (Bld) 5.6 % 0-10 [facility] Work Phone: [phone] Blood platelet mean volumeon 03-15-2022 Platelet mean volume (Bld) [Entitic vol] 9.9 fL 6.2-12.0 [facility] Work Phone: Determination of erythrocyte mean corpuscular volume (MCV)on 03-15-2022 MCV (RBC) [Entitic vol] 100.6 fL 80-94 [facility] Work Phone: [phone] Hematocrit Auto (Bld) [Volum e fraction]on 03-15-2022 Hematocrit (Bld) [Volume fraction] 31.4 % 40-54 [facility] Work Phone: [phone] Iron measurement (mass/mass) on 03-15-2022 Iron (Unsp spec) [Mass/Mass] 69 ug/dL 65-175 [facility] Work Phone: [phone] Laboratory - Chemistry and C hemistry - challengeon 03-15-2022 CO2 [Moles/Vol] 25.0 mmol/L 21.0-32.0 [facility] Work Phone: [phone] Urea nitrogen/Creatinine [Mass ratio] 31.6 mg/mg 10-20 [facility] Work Phone: [phone] Laboratory - Hematology and Cell countson 03-15-2022 Erythrocyte distribution width (RBC) [Entitic vol] 56.5 fL 35.1-43.9 [facility] Work Phone: [phone] Erythrocyte distribution width (RBC) [Ratio] 15.5 % 11.6-14.6 [facility] Work Phone: [phone] Immature granulocytes/100 WBC (Bld) 1.400 % 0.0-0.9 [facility] Work Phone: [phone] Comment on above: IG% - Immature Granu locytes (promyelocytes, myelocytes and metamyelocytes) > 1% indicates that a LEFT SHIFT is Present. MCH (RBC) [Entitic mass] 31.7 pg 27.0-32.0 [facility] Work Phone: [phone] Nucleated RBC/100 WBC (Bld) [Ratio] 0 % 0-5 [facility] Work Phone: [phone] MCHC Auto (RBC) [Mass/Vol]on 03-15-2022 MCHC (RBC) [Mass/Vol] 31.5 g/dL 32-36 [facility] Work Phone: No Panel Informationon 03-15 Estimated Creatinine Clearance Calc 17.61 ml/min [facility] Work Phone: Estimated GFR (MDRD) Amer 27 mL/min >60 [facility] Work Phone: Comment on above: GFR Calc Estimated GFR (MDRD) Non-Af Amer 22 mL/min >60 [facility] Work Phone: Comment on above: Non- GFR Calc Parathyroid Hormone (Intact) 89.0 pg/mL 18.4-80.1 [facility] Work Phone: Total Iron Binding Capacity 254 ug/dL 250-450 [facility] Work Phone: Platelets bldon 03-15-2022 Platelets (Bld) [#/Vol] 134 10*3/uL 150-450 [facility] Work Phone: Serum or plasma albumin aubree urement (mass/volume)on 03-15-2022 Albumin [Mass/Vol] 3.1 g/dL 3.2-5.0 [facility] Work Phone: Serum or plasma calcium aubree urement (mass/volume)on 03-15-2022 Calcium [Mass/Vol] 8.9 mg/dL 8.5-10.1 [facility] Work Phone: Serum or plasma creatinine m easurement (mass/volume)on 03-15-2022 Creatinine [Mass/Vol] 2.91 mg/dL 0.70-1.30 [facility] Work Phone: Comment on above: The validity of the calculated GFR & GFRAA in patients over 70 years has not been determined. Clinical correlation is essential. Serum or plasma ferritin laurie surement (mass/volume)on 03-15-2022 Ferritin [Mass/Vol] 237 ng/mL 26-388 [facility] Work Phone: Serum or plasma iron saturat ion measurement (mass fraction)on 03-15-2022 Iron saturation [Mass fraction] 27.2 % 15.0-55.0 [facility] Work Phone: Serum or plasma urea nitroge n measurement (mass/volume)on 03-15-2022 Urea nitrogen [Mass/Vol] 92 mg/dL 7-18 [facility] Work Phone: Absolute lymphocyte counton 02-15-2022 Lymphocytes Auto (Unsp spec) [#/Vol] 1.47 10*3/uL 0.83-4.51 [facility] Work Phone: Basophil percentageon 2021 Basophil percentage 3.3 mg/dL 2.5-4.9 [facility] Work Phone: Basophils/100 WBC (Bld) 0.2 % 0-1 [facility] Work Phone: Chloride [Moles/Vol] 110 mmol/L 98-107 [facility] Work Phone: Eosinophils/100 WBC (Bld) 1.4 % 0-5 [facility] Work Phone: Glucose [Mass/Vol] 139 mg/dL 74-106 [facility] Work Phone: Comment on above: Fasting Glucose resu lt greater than or equal to 126 mg/dL suggests DIABETES MELLITUS per A.D.A. criteria. Neutrophils (Bld) [#/Vol] 7.7 10*3/uL 2.0-7.7 [facility] Work Phone: Neutrophils/100 WBC (Bld) 76.8 % 47-70 [facility] Work Phone: Potassium [Moles/Vol] 4.7 mmol/L 3.5-5.1 [facility] Work Phone: Sodium [Moles/Vol] 141 mmol/L 136-145 [facility] Work Phone: WBC (Bld) [#/Vol] 10.0 10*3/uL 4.4-11.0 [facility] Work Phone: Blood erythrocytes count (nu mber/volume)on 02-15-2022 RBC (Bld) [#/Vol] 3.28 10*6/uL 4.6-6.2 [facility] Work Phone: Blood hemoglobin measurement (mass/volume)on 02-15-2022 Hemoglobin (Bld) [Mass/Vol] 10.6 g/dL 13.0-16.5 [facility] Work Phone: Blood lymphocytes/100 leukoc yteson 02-15-2022 Lymphocytes/100 WBC (Bld) 14.8 % 19-41 [facility] Work Phone: Blood monocytes/100 leukocyt eson 02-15-2022 Monocytes/100 WBC (Bld) 6.4 % 0-10 [facility] Work Phone: Blood platelet mean volumeon 02-15-2022 Platelet mean volume (Bld) [Entitic vol] 10.0 fL 6.2-12.0 [facility] Work Phone: Determination of erythrocyte mean corpuscular volume (MCV)on 02-15-2022 MCV (RBC) [Entitic vol] 98.8 fL 80-94 [facility] Work Phone: Hematocrit Auto (Bld) [Volum e fraction]on 02-15-2022 Hematocrit (Bld) [Volume fraction] 32.4 % 40-54 [facility] Work Phone: Iron measurement (mass/mass) on 02-15-2022 Iron (Unsp spec) [Mass/Mass] 78 ug/dL 65-175 [facility] Work Phone: Laboratory - Chemistry and C hemistry - challengeon 02-15-2022 CO2 [Moles/Vol] 27.0 mmol/L 21.0-32.0 [facility] Work Phone: Urea nitrogen/Creatinine [Mass ratio] 34.2 mg/mg 10-20 [facility] Work Phone: Laboratory - Hematology and Cell countson 02-15-2022 Erythrocyte distribution width (RBC) [Entitic vol] 53.1 fL 35.1-43.9 [facility] Work Phone: Erythrocyte distribution width (RBC) [Ratio] 14.8 % 11.6-14.6 [facility] Work Phone: [phone] Immature granulocytes/100 WBC (Bld) 0.400 % 0.0-0.9 [facility] Work Phone: [phone] Comment on above: IG% - Immature Granu locytes (promyelocytes, myelocytes and metamyelocytes) > 1% indicates that a LEFT SHIFT is Present. MCH (RBC) [Entitic mass] 32.3 pg 27.0-32.0 [facility] Work Phone: Nucleated RBC/100 WBC (Bld) [Ratio] 0 % 0-5 [facility] Work Phone: MCHC Auto (RBC) [Mass/Vol]on 02-15-2022 MCHC (RBC) [Mass/Vol] 32.7 g/dL 32-36 [facility] Work Phone: No Panel Informationon 02-15 Estimated GFR (MDRD) Amer 37 mL/min >60 [facility] Work Phone: [phone] Comment on above: GFR Calc Estimated GFR (MDRD) Non-Af Amer 31 mL/min >60 [facility] Work Phone: Comment on above: Non- GFR Calc Total Iron Binding Capacity 250 ug/dL 250-450 [facility] Work Phone: [phone] Platelets bldon 02-15-2022 Platelets (Bld) [#/Vol] 127 10*3/uL 150-450 [facility] Work Phone: [phone] Serum or plasma albumin aubree urement (mass/volume)on 02-15-2022 Albumin [Mass/Vol] 3.2 g/dL 3.2-5.0 [facility] Work Phone: [phone] Serum or plasma calcium aubree urement (mass/volume)on 02-15-2022 Calcium [Mass/Vol] 9.3 mg/dL 8.5-10.1 [facility] Work Phone: [phone] Serum or plasma creatinine m easurement (mass/volume)on 02-15-2022 Creatinine [Mass/Vol] 2.19 mg/dL 0.70-1.30 [facility] Work Phone: Comment on above: The validity of the calculated GFR & GFRAA in patients over 70 years has not been determined. Clinical correlation is essential. Serum or plasma ferritin laurie surement (mass/volume)on 02-15-2022 Ferritin [Mass/Vol] 257 ng/mL 26-388 [facility] Work Phone: [phone] Serum or plasma iron saturat ion measurement (mass fraction)on 02-15-2022 Iron saturation [Mass fraction] 31.2 % 15.0-55.0 [facility] Work Phone: Serum or plasma urea nitroge n measurement (mass/volume)on 02-15-2022 Urea nitrogen [Mass/Vol] 75 mg/dL 7-18 [facility] Work Phone: Basophil percentageon 2021 Chloride [Moles/Vol] 105 mmol/L 98-107 [facility] Work Phone: [phone] Glucose [Mass/Vol] 120 mg/dL 74-106 [facility] Work Phone: Comment on above: Fasting Glucose resu lt from 100 to 125 mg/dL suggests IMPAIRED HOMEOSTASIS per A.D.A. criteria. Potassium [Moles/Vol] 4.8 mmol/L 3.5-5.1 [facility] Work Phone: [phone] Sodium [Moles/Vol] 138 mmol/L 136-145 [facility] Work Phone: [phone] WBC (Bld) [#/Vol] 10.6 10*3/uL 4.4-11.0 [facility] Work Phone: [phone] Blood erythrocytes count (nu mber/volume)on 01-25-2022 RBC (Bld) [#/Vol] 4.06 10*6/uL 4.6-6.2 [facility] Work Phone: Blood hemoglobin measurement (mass/volume)on 01-25-2022 Hemoglobin (Bld) [Mass/Vol] 12.7 g/dL 13.0-16.5 [facility] Work Phone: [phone] Blood platelet mean volumeon 01-25-2022 Platelet mean volume (Bld) [Entitic vol] 10.6 fL 6.2-12.0 [facility] Work Phone: [phone] Determination of erythrocyte mean corpuscular volume (MCV)on 01-25-2022 MCV (RBC) [Entitic vol] 97.5 fL 80-94 [facility] Work Phone: [phone] Hematocrit Auto (Bld) [Volum e fraction]on 01-25-2022 Hematocrit (Bld) [Volume fraction] 39.6 % 40-54 [facility] Work Phone: Laboratory - Chemistry and C hemistry - challengeon 01-25-2022 CO2 [Moles/Vol] 31.0 mmol/L 21.0-32.0 [facility] Work Phone: [phone] Urea nitrogen/Creatinine [Mass ratio] 34.9 mg/mg 10-20 [facility] Work Phone: [phone] Laboratory - Hematology and Cell countson 01-25-2022 Erythrocyte distribution width (RBC) [Entitic vol] 52.1 fL 35.1-43.9 [facility] Work Phone: [phone] Erythrocyte distribution width (RBC) [Ratio] 14.5 % 11.6-14.6 [facility] Work Phone: [phone] MCH (RBC) [Entitic mass] 31.3 pg 27.0-32.0 [facility] Work Phone: [phone] MCHC Auto (RBC) [Mass/Vol]on 01-25-2022 MCHC (RBC) [Mass/Vol] 32.1 g/dL 32-36 [facility] Work Phone: No Panel Informationon 01-25 Estimated GFR (MDRD) Amer 38 mL/min >60 [facility] Work Phone: Comment on above: GFR Calc Estimated GFR (MDRD) Non-Af Amer 31 mL/min >60 [facility] Work Phone: Comment on above: Non- GFR Calc Platelets bldon 01-25-2022 Platelets (Bld) [#/Vol] 151 10*3/uL 150-450 [facility] Work Phone: Serum or plasma calcium aubree urement (mass/volume)on 01-25-2022 Calcium [Mass/Vol] 8.8 mg/dL 8.5-10.1 [facility] Work Phone: Serum or plasma creatinine m easurement (mass/volume)on 01-25-2022 Creatinine [Mass/Vol] 2.18 mg/dL 0.70-1.30 [facility] Work Phone: Comment on above: The validity of the calculated GFR & GFRAA in patients over 70 years has not been determined. Clinical correlation is essential. Serum or plasma urea nitroge n measurement (mass/volume)on 01-25-2022 Urea nitrogen [Mass/Vol] 76 mg/dL 7-18 [facility] Work Phone: Thin prep Papanicolaou smear with manual screeningon 01-25-2022 Thin prep Papanicolaou smear with manual screening 2 5-15 [facility] Work Phone: Whole blood hemoglobin A1c/t otal hemoglobin ratio (mass fraction)on 01-25-2022 HbA1c (Bld) [Mass fraction] 6.6 % 3.8-5.6 [facility] Work Phone: Comment on above: Normal < 5.7 % Predi abetic 5.7 - 6.4 % Diabetic >or= 6.5 % Please note range changes. Absolute lymphocyte counton 01-18-2022 Lymphocytes Auto (Unsp spec) [#/Vol] 1.51 10*3/uL 0.83-4.51 [facility] Work Phone: Basophil percentageon 2021 Basophil percentage 2.4 mg/dL 2.5-4.9 [facility] Work Phone: Basophils/100 WBC (Bld) 0.3 % 0-1 [facility] Work Phone: Chloride [Moles/Vol] 105 mmol/L 98-[address] [facility] Work [facility]: Eosinophils/100 WBC (Bld) 0.6 % 0-5 [facility] Work Phone: Glucose [Mass/Vol] 225 mg/dL 74-106 [facility] Work Phone: Comment on above: Glucose result great er than or equal to 200 mg/dLsuggests DIABETES MELLITUS per A.D.A. criteria. Neutrophils (Bld) [#/Vol] 7.7 10*3/uL 2.0-7.7 [facility] Work Phone: Neutrophils/100 WBC (Bld) 77.2 % 47-70 [facility] Work Phone: Potassium [Moles/Vol] 4.4 mmol/L 3.5-5.1 [facility] Work Phone: Sodium [Moles/Vol] 138 mmol/L 136-145 [facility] Work Phone: WBC (Bld) [#/Vol] 9.9 10*3/uL 4.4-11.0 [facility] Work Phone: Blood erythrocytes count (nu mber/volume)on 01-18-2022 RBC (Bld) [#/Vol] 3.88 10*6/uL 4.6-6.2 [facility] Work Phone: Blood hemoglobin measurement (mass/volume)on 01-18-2022 Hemoglobin (Bld) [Mass/Vol] 12.3 g/dL 13.0-16.5 [facility] Work Phone: Blood lymphocytes/100 leukoc yteson 01-18-2022 Lymphocytes/100 WBC (Bld) 15.2 % 19-41 [facility] Work Phone: Blood monocytes/100 leukocyt eson 01-18-2022 Monocytes/100 WBC (Bld) 6.3 % 0-10 [facility] Work Phone: [phone] Blood platelet mean volumeon 01-18-2022 Platelet mean volume (Bld) [Entitic vol] 10.9 fL 6.2-12.0 [facility] Work Phone: [phone] Determination of erythrocyte mean corpuscular volume (MCV)on 01-18-2022 MCV (RBC) [Entitic vol] 95.6 fL 80-94 [facility] Work Phone: [phone] Hematocrit Auto (Bld) [Volum e fraction]on 01-18-2022 Hematocrit (Bld) [Volume fraction] 37.1 % 40-54 [facility] Work Phone: [phone] Iron measurement (mass/mass) on 01-18-2022 Iron (Unsp spec) [Mass/Mass] 94 ug/dL 65-175 [facility] Work Phone: [phone] Laboratory - Chemistry and C hemistry - challengeon 01-18-2022 CO2 [Moles/Vol] 27.0 mmol/L 21.0-32.0 [facility] Work Phone: [phone] Urea nitrogen/Creatinine [Mass ratio] 37.1 mg/mg 10-20 [facility] Work Phone: [phone] Laboratory - Hematology and Cell countson 01-18-2022 Erythrocyte distribution width (RBC) [Entitic vol] 51.5 fL 35.1-43.9 [facility] Work Phone: [phone] Erythrocyte distribution width (RBC) [Ratio] 14.8 % 11.6-14.6 [facility] Work Phone: [phone] Immature granulocytes/100 WBC (Bld) 0.400 % 0.0-0.9 [facility] Work Phone: [phone] Comment on above: IG% - Immature Granu locytes (promyelocytes, myelocytes and metamyelocytes) > 1% indicates that a LEFT SHIFT is Present. MCH (RBC) [Entitic mass] 31.7 pg 27.0-32.0 [facility] Work Phone: Nucleated RBC/100 WBC (Bld) [Ratio] 0 % 0-5 [facility] Work Phone: [phone] MCHC Auto (RBC) [Mass/Vol]on 01-18-2022 MCHC (RBC) [Mass/Vol] 33.2 g/dL 32-36 [facility] Work Phone: No Panel Informationon 01-18 Estimated GFR (MDRD) Amer 37 mL/min >60 [facility] Work Phone: Comment on above: GFR Calc Estimated GFR (MDRD) Non-Af Amer 31 mL/min >60 [facility] Work Phone: Comment on above: Non- GFR Calc Total Iron Binding Capacity 239 ug/dL 250-450 [facility] Work Phone: Platelets bldon 01-18-2022 Platelets (Bld) [#/Vol] 143 10*3/uL 150-450 [facility] Work Phone: [phone] Serum or plasma albumin aubree urement (mass/volume)on 01-18-2022 Albumin [Mass/Vol] 3.2 g/dL 3.2-5.0 [facility] Work Phone: Serum or plasma calcium aubree urement (mass/volume)on 01-18-2022 Calcium [Mass/Vol] 8.4 mg/dL 8.5-10.1 [facility] Work Phone: [phone] Serum or plasma creatinine m easurement (mass/volume)on 01-18-2022 Creatinine [Mass/Vol] 2.21 mg/dL 0.70-1.30 [facility] Work Phone: Comment on above: The validity of the calculated GFR & GFRAA in patients over 70 years has not been determined. Clinical correlation is essential. Serum or plasma ferritin laurie surement (mass/volume)on 01-18-2022 Ferritin [Mass/Vol] 241 ng/mL 26-388 [facility] Work Phone: [phone] Serum or plasma iron saturat ion measurement (mass fraction)on 01-18-2022 Iron saturation [Mass fraction] 39.3 % 15.0-55.0 [facility] Work Phone: Serum or plasma urea nitroge n measurement (mass/volume)on 01-18-2022 Urea nitrogen [Mass/Vol] 82 mg/dL 7-18 [facility] Work Phone: Absolute lymphocyte counton 12-21-2021 Lymphocytes Auto (Unsp spec) [#/Vol] 1.78 10*3/uL 0.83-4.51 [facility] Work Phone: Basophil percentageon 2021 Basophil percentage 2.6 mg/dL 2.5-4.9 [facility] Work Phone: Basophils/100 WBC (Bld) 0.5 % 0-1 [facility] Work Phone: Chloride [Moles/Vol] 107 mmol/L 98-107 [facility] Work Phone: Eosinophils/100 WBC (Bld) 4.2 % 0-5 [facility] Work Phone: Glucose [Mass/Vol] 159 mg/dL 74-106 [facility] Work Phone: Comment on above: Fasting Glucose resu lt greater than or equal to 126 mg/dL suggests DIABETES MELLITUS per A.D.A. criteria. Neutrophils (Bld) [#/Vol] 5.0 10*3/uL 2.0-7.7 [facility] Work Phone: Neutrophils/100 WBC (Bld) 64.1 % 47-70 [facility] Work Phone: Potassium [Moles/Vol] 4.5 mmol/L 3.5-5.1 [facility] Work Phone: Sodium [Moles/Vol] 138 mmol/L 136-145 [facility] Work Phone: WBC (Bld) [#/Vol] 7.8 10*3/uL 4.4-11.0 [facility] Work Phone: Blood erythrocytes count (nu mber/volume)on 12-21-2021 RBC (Bld) [#/Vol] 3.63 10*6/uL 4.6-6.2 [facility] Work Phone: [phone] Blood hemoglobin measurement (mass/volume)on 12-21-2021 Hemoglobin (Bld) [Mass/Vol] 11.3 g/dL 13.0-16.5 [facility] Work Phone: [phone] Blood lymphocytes/100 leukoc yteson 12-21-2021 Lymphocytes/100 WBC (Bld) 22.7 % 19-41 [facility] Work Phone: [phone] Blood monocytes/100 leukocyt eson 12-21-2021 Monocytes/100 WBC (Bld) 8.0 % 0-10 [facility] Work Phone: [phone] Blood platelet mean volumeon 12-21-2021 Platelet mean volume (Bld) [Entitic vol] 10.4 fL 6.2-12.0 [facility] Work Phone: [phone] Determination of erythrocyte mean corpuscular volume (MCV)on 12-21-2021 MCV (RBC) [Entitic vol] 95.0 fL 80-94 [facility] Work Phone: [phone] Hematocrit Auto (Bld) [Volum e fraction]on 12-21-2021 Hematocrit (Bld) [Volume fraction] 34.5 % 40-54 [facility] Work Phone: [phone] Iron measurement (mass/mass) on 12-21-2021 Iron (Unsp spec) [Mass/Mass] 79 ug/dL 65-175 [facility] Work Phone: [phone] Laboratory - Chemistry and C hemistry - challengeon 12-21-2021 CO2 [Moles/Vol] 26.0 mmol/L 21.0-32.0 [facility] Work Phone: [phone] Urea nitrogen/Creatinine [Mass ratio] 31.5 mg/mg 10-20 [facility] Work Phone: [phone] Laboratory - Hematology and Cell countson 12-21-2021 Erythrocyte distribution width (RBC) [Entitic vol] 51.0 fL 35.1-43.9 [facility] Work Phone: [phone] distribution width (RBC) [Ratio] 14.8 % 11.6-14.6 [facility] Work Phone: [phone] Immature granulocytes/100 WBC (Bld) 0.500 % 0.0-0.9 [facility] Work Phone: [phone] Comment on above: IG% - Immature Granu locytes (promyelocytes, myelocytes and metamyelocytes) > 1% indicates that a LEFT SHIFT is Present. MCH (RBC) [Entitic mass] 31.1 pg 27.0-32.0 [facility] Work Phone: [phone] Nucleated RBC/100 WBC (Bld) [Ratio] 0 % 0-5 [facility] Work Phone: [phone] MCHC Auto (RBC) [Mass/Vol]on 12-21-2021 MCHC (RBC) [Mass/Vol] 32.8 g/dL 32-36 [facility] Work Phone: No Panel Informationon 12-21 Estimated GFR (MDRD) Amer 32 mL/min >60 [facility] Work Phone: [phone] Comment on above: GFR Calc Estimated GFR (MDRD) Non-Af Amer 26 mL/min >60 [facility] Work Phone: [phone] Comment on above: Non- GFR Calc Parathyroid Hormone (Intact) 43.1 pg/mL 18.4-80.1 [facility] Work Phone: [phone] Total Iron Binding Capacity 228 ug/dL 250-450 [facility] Work Phone: [phone] Platelets bldon 12-21-2021 Platelets (Bld) [#/Vol] 140 10*3/uL 150-450 [facility] Work Phone: [phone] Serum or plasma albumin aubree urement (mass/volume)on 12-21-2021 Albumin [Mass/Vol] 3.0 g/dL 3.2-5.0 [facility] Work Phone: Serum or plasma calcium aubree urement (mass/volume)on 12-21-2021 Calcium [Mass/Vol] 8.9 mg/dL 8.5-10.1 [facility] Work Phone: Serum or plasma creatinine m easurement (mass/volume)on 12-21-2021 Creatinine [Mass/Vol] 2.54 mg/dL 0.70-1.30 [facility] Work Phone: Comment on above: The validity of the calculated GFR & GFRAA in patients over 70 years has not been determined. Clinical correlation is essential. Serum or plasma ferritin laurie surement (mass/volume)on 12-21-2021 Ferritin [Mass/Vol] 356 ng/mL 26-388 [facility] Work Phone: Serum or plasma iron saturat ion measurement (mass fraction)on 12-21-2021 Iron saturation [Mass fraction] 34.6 % 15.0-55.0 [facility] Work Phone: Serum or plasma urea nitroge n measurement (mass/volume)on 12-21-2021 Urea nitrogen [Mass/Vol] 80 mg/dL 7-18 [facility] Work Phone: Vital Signs Date Time Vital Sign Value Performing Clinician Facility 03-14-2025 08:07-0400 Body mass index (BMI) [Ratio] 39.7 kg/m2 Dr. Rios Downey DO Work Phone: [facility] 03-14-2025 08:07-0400 Body temperature 97.4 [degF] Dr. Rios Downey DO Work Phone: [facility] 03-14-2025 08:07-0400 Body weight 108.[address] Rios Downey DO Work Phone: [facility] 03-14-2025 08:07-0400 Diastolic blood pressure 83 mm[Hg] Dr. Rios Downey DO Work Phone: [facility] 03-14-2025 08:07-0400 Heart rate 50 /min Dr. Rios Downey DO Work Phone: [facility] 03-14-2025 08:07-0400 Inhaled oxygen flow rate 4 L/min Dr. Rios Downey DO Work Phone: [facility] 03-14-2025 08:07-0400 Respiratory rate 20 /min Dr. Rios Downey DO Work Phone: [facility] 03-14-2025 08:07-0400 SaO2% (BldA) [Mass fraction] 99 % Dr. Rios Downey DO Work Phone: [facility] 03-14-2025 08:07-0400 Systolic blood pressure 165 mm[Hg] Dr. Rios Downey DO Work Phone: [facility] 03-23-2024 15:00-0400 Body height 165.[address] Rios Downey Work Phone: [facility] 03-23-2024 15:00-0400 Body mass index (BMI) [Ratio] 38.9 kg/m2 Dr. Rios Downey Work Phone: [facility] 03-23-2024 15:00-0400 Body weight 106.[address] Rios Downey Work Phone: [facility] 03-23-2024 15:00-0400 Diastolic blood pressure 68 mm[Hg] Dr. Rios Downey Work Phone: [facility] 03-23-2024 15:00-0400 Heart rate 73 /min Dr. Rios Downey Work Phone: [facility] 03-23-2024 15:00-0400 Inhaled oxygen flow rate 5 L/min Dr. Rios Downey Work Phone: [facility] 03-23-2024 15:00-0400 Respiratory rate 22 /min Dr. Rios Downey Work Phone: [facility] 03-23-2024 15:00-0400 SaO2% (BldA) [Mass fraction] 96 % Dr. Rios Downey Work Phone: [facility] 03-23-2024 15:00-0400 Systolic blood pressure 111 mm[Hg] Dr. Rios Downey Work Phone: [facility] 02-19-2024 16:28-0400 Body temperature 97.6 [degF] [facility] 02-19-2024 16:28-0400 Diastolic blood pressure 72 mm[Hg] [facility] 02-19-2024 16:28-0400 Heart rate 52 /min [facility] 02-19-2024 16:28-0400 Respiratory rate 17 /min [facility] 02-19-2024 16:28-0400 SaO2% (BldA) [Mass fraction] 95 % [facility] 02-19-2024 16:28-0400 Systolic blood pressure 149 mm[Hg] [facility] 02-19-2024 13:00-0400 Inhaled oxygen flow rate 2 L/min [facility] 02-19-2024 12:32-0400 Body mass index (BMI) [Ratio] 39.4 kg/m2 [facility] 02-19-2024 12:32-0400 Body weight 107.4 kg [facility] 02-19-2024 11:34-0400 Body height 165.1 cm [facility] 02-16-2024 03:00-0400 Body temperature 97.7 [degF] [facility] 02-16-2024 03:00-0400 Diastolic blood pressure 100 mm[Hg] [facility] 02-16-2024 03:00-0400 Heart rate 57 /min [facility] 02-16-2024 03:00-0400 Respiratory rate 18 /min [facility] 02-16-2024 03:00-0400 SaO2% (BldA) [Mass fraction] 98 % [facility] 02-16-2024 03:00-0400 Systolic blood pressure 135 mm[Hg] [facility] 02-15-2024 23:56-0400 Body mass index (BMI) [Ratio] 38.6 kg/m2 [facility] 02-15-2024 23:56-0400 Body weight 105.4 kg [facility] 02-15-2024 22:56-0400 Body height 165.1 cm [facility] 02-15-2024 22:56-0400 Inhaled oxygen flow rate 2 L/min [facility] 11-23-2023 15:42-0500 Body height 165.[address] Rios Downey Work Phone: [facility] 11-23-2023 15:42-0500 Body mass index (BMI) [Ratio] 41.5 kg/m2 Dr. Rios Downey Work Phone: [facility] 11-23-2023 15:42-0500 Body temperature 97.4 [degF] Dr. Rios Downey Work Phone: [facility] 11-23-2023 15:42-0500 Body weight 113.[address] Rios Downey Work Phone: [facility] 11-23-2023 15:42-0500 Diastolic blood pressure 53 mm[Hg] Dr. Rios Downey Work Phone: [facility] 11-23-2023 15:42-0500 Heart rate 61 /min Dr. Rios Downey Work Phone: [facility] 11-23-2023 15:42-0500 Inhaled oxygen flow rate 2 L/min Dr. Rios Downey Work Phone: [facility] 11-23-2023 15:42-0500 Respiratory rate 16 /min Dr. Rios Dwoney Work Phone: [facility] 11-23-2023 15:42-0500 Systolic blood pressure 101 mm[Hg] Dr. Rios Downey Work Phone: [facility] 10-05-2023 07:44-0500 Body height 165.[address] Rios Downey Work Phone: [facility] 10-05-2023 07:44-0500 Body mass index (BMI) [Ratio] 41.4 kg/m2 Dr. Rios Downey Work Phone: [facility] 10-05-2023 07:44-0500 Body temperature 98.5 [degF] Dr. Rios Downey Work Phone: [facility] 10-05-2023 07:44-0500 Body weight 112.[address] Rios Downey Work Phone: [facility] 10-05-2023 07:44-0500 Diastolic blood pressure 59 mm[Hg] Dr. Rios Downey Work Phone: [facility] 10-05-2023 07:44-0500 Heart rate 65 /min Dr. Rios Downey Work Phone: [facility] 10-05-2023 07:44-0500 Inhaled oxygen flow rate 2 L/min Dr. Rios Downey Work Phone: [facility] 10-05-2023 07:44-0500 Respiratory rate 17 /min Dr. Rios Downey Work Phone: [facility] 10-05-2023 07:44-0500 SaO2% (BldA) [Mass fraction] 94 % Dr. Rios Downey Work Phone: [facility] 10-05-2023 07:44-0500 Systolic blood pressure 109 mm[Hg] Dr. Rios Downey Work Phone: [facility] 09-28-2023 15:55-0400 Body height 165.[address] Rios Downey Work Phone: [facility] 09-28-2023 15:55-0400 Body mass index (BMI) [Ratio] 41.4 kg/m2 Dr. Rios Downey Work Phone: [facility] 09-28-2023 15:55-0400 Body temperature 97.9 [degF] Dr. Rios Downey Work Phone: [facility] 09-28-2023 15:55-0400 Body weight 112.[address] Rios Downey Work Phone: [facility] 09-28-2023 15:55-0400 Diastolic blood pressure 72 mm[Hg] Dr. Rios Downey Work Phone: [facility] 09-28-2023 15:55-0400 Heart rate 54 /min Dr. Rios Downey Work Phone: [facility] 09-28-2023 15:55-0400 Inhaled oxygen flow rate 2 L/min Dr. Rios Downey Work Phone: [facility] 09-28-2023 15:55-0400 Respiratory rate 18 /min Dr. Rios Downey Work Phone: [facility] 09-28-2023 15:55-0400 SaO2% (BldA) [Mass fraction] 96 % Dr. Rios Downey Work Phone: [facility] 09-28-2023 15:55-0400 Systolic blood pressure 154 mm[Hg] Dr. Rios Downey Work Phone: [facility] 09-22-2023 16:45-0400 Body temperature 98.1 [degF] Dr. Rios Downey Work Phone: [facility] 09-22-2023 16:45-0400 Diastolic blood pressure 74 mm[Hg] Dr. Rios Downey Work Phone: [facility] 09-22-2023 16:45-0400 Heart rate 66 /min Dr. Rios Downey Work Phone: [facility] 09-22-2023 16:45-0400 Inhaled oxygen flow rate 5 L/min Dr. Rios Downey Work Phone: [facility] 09-22-2023 16:45-0400 Respiratory rate 18 /min Dr. Rios Downey Work Phone: [facility] 09-22-2023 16:45-0400 SaO2% (BldA) [Mass fraction] 95 % Dr. Rios Downey Work Phone: [facility] 09-22-2023 16:45-0400 Systolic blood pressure 143 mm[Hg] Dr. Rios Downey Work Phone: [facility] 09-22-2023 02:48-0400 Body mass index (BMI) [Ratio] 41.6 kg/m2 Dr. Rios Downey Work Phone: [facility] 09-22-2023 02:48-0400 Body weight 113.[address] Rios Downey Work Phone: [facility] 09-20-2023 22:50-0400 Inhaled oxygen concentration 30 % Dr. Rios Downey Work Phone: [facility] 09-17-2023 11:05-0400 Body height 165.[address] Rios Downey Work Phone: [facility] 09-16-2023 20:02-0400 Diastolic blood pressure 77 mm[Hg] Dr. Rios Downey Work Phone: [facility] 09-16-2023 20:02-0400 Heart rate 56 /min Dr. Rios Downey Work Phone: [facility] 09-16-2023 20:02-0400 Inhaled oxygen flow rate 6 L/min Dr. Rios Downey Work Phone: [facility] 09-16-2023 20:02-0400 Respiratory rate 14 /min Dr. Rios Downey Work Phone: [facility] 09-16-2023 20:02-0400 SaO2% (BldA) [Mass fraction] 99 % Dr. Rios Downey Work Phone: [facility] 09-16-2023 20:02-0400 Systolic blood pressure 144 mm[Hg] Dr. Rios Downey Work Phone: [facility] 09-16-2023 19:15-0400 Body temperature 96.6 [degF] Dr. Rios Downey Work Phone: [facility] 09-16-2023 16:12-0400 Body mass index (BMI) [Ratio] 43.5 kg/m2 Dr. Rios Downey Work Phone: [facility] 09-16-2023 16:12-0400 Body weight 118.[address] Rios Downey Work Phone: [facility] 09-16-2023 15:20-0400 Body height 165.[address] Rios Downey Work Phone: [facility] 08-31-2023 15:55-0400 Body temperature 96.9 [degF] Dr. Rios Downey Work Phone: [facility] 08-31-2023 15:55-0400 Diastolic blood pressure 83 mm[Hg] Dr. Rios Downey Work Phone: [facility] 08-31-2023 15:55-0400 Heart rate 60 /min Dr. Rios Downey Work Phone: [facility] 08-31-2023 15:55-0400 Inhaled oxygen flow rate 2 L/min Dr. Rios Downey Work Phone: [facility] 08-31-2023 15:55-0400 Respiratory rate 18 /min Dr. Rios Downey Work Phone: [facility] 08-31-2023 15:55-0400 SaO2% (BldA) [Mass fraction] 93 % Dr. Rios Downey Work Phone: [facility] 08-31-2023 15:55-0400 Systolic blood pressure 158 mm[Hg] Dr. Rios Downey Work Phone: [facility] 08-22-2023 15:36-0400 Body temperature 97.8 [degF] Dr. Rios Downey Work Phone: [facility] 08-22-2023 15:36-0400 Diastolic blood pressure 60 mm[Hg] Dr. Rios Downey Work Phone: [facility] 08-22-2023 15:36-0400 Heart rate 71 /min Dr. Rios Downey Work Phone: [facility] 08-22-2023 15:36-0400 Inhaled oxygen flow rate 3 L/min Dr. Rios Downey Work Phone: [facility] 08-22-2023 15:36-0400 Respiratory rate 16 /min Dr. Rios Downey Work Phone: [facility] 08-22-2023 15:36-0400 SaO2% (BldA) [Mass fraction] 100 % Dr. Rios Downey Work Phone: [facility] 08-22-2023 15:36-0400 Systolic blood pressure 124 mm[Hg] Dr. Rios Downey Work Phone: [facility] 08-22-2023 04:29-0400 Body mass index (BMI) [Ratio] 41.1 kg/m2 Dr. Rios Downey Work Phone: [facility] 08-22-2023 04:29-0400 Body weight 112.[address] Rios Downey Work Phone: [facility] 08-19-2023 11:06-0400 Body height 165.[address] Rios Downey Work Phone: [facility] 08-18-2023 16:35-0400 Diastolic blood pressure 52 mm[Hg] Dr. Rios Downey Work Phone: [facility] 08-18-2023 16:35-0400 Heart rate 61 /min Dr. Rios Downey Work Phone: [facility] 08-18-2023 16:35-0400 Respiratory rate 19 /min Dr. Rios Downey Work Phone: [facility] 08-18-2023 16:35-0400 SaO2% (BldA) [Mass fraction] 98 % Dr. Rios Downey Work Phone: [facility] 08-18-2023 16:35-0400 Systolic blood pressure 119 mm[Hg] Dr. Rios Downey Work Phone: [facility] 08-18-2023 15:00-0400 Body temperature 97.6 [degF] Dr. Rios Downey Work Phone: [facility] 08-18-2023 12:57-0400 Inhaled oxygen flow rate 4 L/min Dr. Rios Downey Work Phone: [facility] 08-18-2023 11:52-0400 Body height 165.[address] Rios Downey Work Phone: [facility] 08-18-2023 11:52-0400 Body mass index (BMI) [Ratio] 45.4 kg/m2 Dr. Rios Downey Work Phone: [facility] 08-18-2023 11:52-0400 Body weight 123.[address] Rios Downey Work Phone: [facility] 08-17-2023 17:59-0400 Body mass index (BMI) [Ratio] 39.9 kg/m2 Dr. Rios Downey Work Phone: [facility] 08-17-2023 17:59-0400 Body weight 108.[address] Rios Downey Work Phone: [facility] 08-17-2023 16:00-0400 Diastolic blood pressure 71 mm[Hg] Dr. Rios Downey Work Phone: [facility] 08-17-2023 16:00-0400 Heart rate 64 /min Dr. Rios Downey Work Phone: [facility] 08-17-2023 16:00-0400 Inhaled oxygen flow rate 4 L/min Dr. Rios Downey Work Phone: [facility] 08-17-2023 16:00-0400 Respiratory rate 16 /min Dr. Rios Downey Work Phone: [facility] 08-17-2023 16:00-0400 SaO2% (BldA) [Mass fraction] 99 % Dr. Rios Downey Work Phone: [facility] 08-17-2023 16:00-0400 Systolic blood pressure 117 mm[Hg] Dr. Rios Downey Work Phone: [facility] 08-16-2023 21:12-0400 Body temperature 98.2 [degF] Dr. Rios Downey Work Phone: [facility] 08-10-2023 20:37-0400 Inhaled oxygen flow rate 4 L/min Dr. Rios Downey Work Phone: [facility] 08-10-2023 20:37-0400 SaO2% (BldA) [Mass fraction] 92 % Dr. Rios Downey Work Phone: [facility] 08-10-2023 20:14-0400 Heart rate 81 /min Dr. Rios Downey Work Phone: [facility] 08-10-2023 20:14-0400 Respiratory rate 18 /min Dr. Rios Downey Work Phone: [facility] 08-10-2023 15:40-0400 Body temperature 97.3 [degF] Dr. Rios Downey Work Phone: [facility] 08-10-2023 15:40-0400 Diastolic blood pressure 74 mm[Hg] Dr. Rios Downey Work Phone: [facility] 08-10-2023 15:40-0400 Systolic blood pressure 147 mm[Hg] Dr. Rios Downey Work Phone: [facility] 08-10-2023 14:42-0400 Body height 165.[address] Rios Downey Work Phone: [facility] 08-10-2023 14:42-0400 Body weight 111.[address] Rios Downey Work Phone: [facility] 08-09-2023 06:00-0400 Body mass index (BMI) [Ratio] 40.8 kg/m2 Dr. Rios Downey Work Phone: [facility] 07-27-2023 07:09-0400 Inhaled oxygen flow rate 4 L/min Dr. Rios Downey Work Phone: [facility] 07-27-2023 07:09-0400 SaO2% (BldA) [Mass fraction] 99 % Dr. Rios Downey Work Phone: [facility] 07-27-2023 05:52-0400 Body mass index (BMI) [Ratio] 40.7 kg/m2 Dr. Rios Downey Work Phone: [facility] 07-27-2023 05:52-0400 Body weight 110.[address] Rios Downey Work Phone: [facility] 07-26-2023 16:00-0400 Body temperature 96.1 [degF] Dr. Rios Downey Work Phone: [facility] 07-26-2023 16:00-0400 Diastolic blood pressure 57 mm[Hg] Dr. Rios Downey Work Phone: [facility] 07-26-2023 16:00-0400 Heart rate 60 /min Dr. Rios Downey Work Phone: [facility] 07-26-2023 16:00-0400 Respiratory rate 16 /min Dr. Rios Downey Work Phone: [facility] 07-26-2023 16:00-0400 Systolic blood pressure 116 mm[Hg] Dr. Rios Downey Work Phone: [facility] 07-20-2023 16:11-0400 Body height 165.[address] Rios Downey Work Phone: [facility] 07-11-2023 11:29-0400 Inhaled oxygen flow rate 4 L/min Dr. Rios Downey Work Phone: [facility] 07-11-2023 10:49-0400 SaO2% (BldA) [Mass fraction] 98 % Dr. Rios Downey Work Phone: [facility] 07-10-2023 16:00-0400 Body temperature 96.9 [degF] Dr. Rios Downey Work Phone: [facility] 07-10-2023 16:00-0400 Diastolic blood pressure 66 mm[Hg] Dr. Rios Downey Work Phone: [facility] 07-10-2023 16:00-0400 Heart rate 68 /min Dr. Rios Downey Work Phone: [facility] 07-10-2023 16:00-0400 Respiratory rate 18 /min Dr. Rios Downey Work Phone: [facility] 07-10-2023 16:00-0400 Systolic blood pressure 159 mm[Hg] Dr. Rios Downey Work Phone: [facility] 07-09-2023 13:20-0400 Body mass index (BMI) [Ratio] 44.1 kg/m2 Dr. Rios Downey Work Phone: [facility] 07-09-2023 13:20-0400 Body weight 120.[address] Rios Downey Work Phone: [facility] 07-06-2023 15:30-0400 Body height 165.[address] Rios Downey Work Phone: [facility] 07-04-2023 19:55-0400 Inhaled oxygen concentration 92 % Dr. Rios Downey Work Phone: [facility] 07-03-2023 09:00-0400 Inhaled oxygen flow rate 4 L/min Dr. Rios Downey Work Phone: [facility] 07-03-2023 08:37-0400 Body temperature 97.8 [degF] Dr. Rios Downey Work Phone: [facility] 07-03-2023 08:37-0400 Diastolic blood pressure 75 mm[Hg] Dr. Rios Downey Work Phone: [facility] 07-03-2023 08:37-0400 Heart rate 60 /min Dr. Rios Downey Work Phone: [facility] 07-03-2023 08:37-0400 Respiratory rate 17 /min Dr. Rios Downey Work Phone: [facility] 07-03-2023 08:37-0400 SaO2% (BldA) [Mass fraction] 98 % Dr. Rios Downey Work Phone: [facility] 07-03-2023 08:37-0400 Systolic blood pressure 157 mm[Hg] Dr. Rios Downey Work Phone: [facility] 07-03-2023 04:47-0400 Body mass index (BMI) [Ratio] 44.1 kg/m2 Dr. Rios Downey Work Phone: [facility] 07-03-2023 04:47-0400 Body weight 120.[address] Rios Downey Work Phone: [facility] 07-01-2023 14:18-0400 Body height 165.[address] Rios Downey Work Phone: [facility] 06-29-2023 14:24-0400 Body temperature 97 [degF] [facility] 06-29-2023 14:24-0400 Diastolic blood pressure 63 mm[Hg] [facility] 06-29-2023 14:24-0400 Heart rate 66 /min [facility] 06-29-2023 14:24-0400 Inhaled oxygen flow rate 4 L/min [facility] 06-29-2023 14:24-0400 Respiratory rate 22 /min [facility] 06-29-2023 14:24-0400 SaO2% (BldA) [Mass fraction] 96 % [facility] 06-29-2023 14:24-0400 Systolic blood pressure 156 mm[Hg] [facility] 06-29-2023 12:55-0400 Body height 165.1 cm [facility] 06-29-2023 12:55-0400 Body mass index (BMI) [Ratio] 44.1 kg/m2 [facility] 06-29-2023 12:55-0400 Body weight 120.3 kg [facility] 01-31-2023 15:27-0500 Body height 165.[address] Jennifer Lu Work Phone: [facility] 01-31-2023 15:27-0500 Body mass index (BMI) [Ratio] 42.5 kg/m2 Dr. Jennifer Lu Work Phone: [facility] 01-31-2023 15:27-0500 Body weight 116.[address] Jennifer Lu Work Phone: [facility] 01-31-2023 15:27-0500 Diastolic blood pressure 78 mm[Hg] Dr. Jennifer Lu Work Phone: [facility] 01-31-2023 15:27-0500 Heart rate 74 /min Dr. Jennifer Lu Work Phone: [facility] 01-31-2023 15:27-0500 Inhaled oxygen flow rate 2 L/min Dr. Jennifer Lu Work Phone: [facility] 01-31-2023 15:27-0500 Respiratory rate 20 /min Dr. Jennifer Lu Work Phone: [facility] 01-31-2023 15:27-0500 Systolic blood pressure 129 mm[Hg] Dr. Jennifer Lu Work Phone: [facility] 10-07-2022 13:47-0500 Body height 165.[address] Jennifer Lu Work Phone: [facility] 10-07-2022 13:47-0500 Body mass index (BMI) [Ratio] 44.1 kg/m2 Dr. Jennifer Lu Work Phone: [facility] 10-07-2022 13:47-0500 Body temperature 98.4 [degF] Dr. Jennifer Lu Work Phone: [facility] 10-07-2022 13:47-0500 Body weight 120.[address] Jennifer Lu Work Phone: [facility] 10-07-2022 13:47-0500 Diastolic blood pressure 55 mm[Hg] Dr. Jennifer Lu Work Phone: [facility] 10-07-2022 13:47-0500 Heart rate 62 /min Dr. Jennifer Lu Work Phone: [facility] 10-07-2022 13:47-0500 Inhaled oxygen flow rate 2 L/min Dr. Jennifer Lu Work Phone: [facility] 10-07-2022 13:47-0500 Respiratory rate 16 /min Dr. Jennifer Lu Work Phone: [facility] 10-07-2022 13:47-0500 SaO2% (BldA) [Mass fraction] 99 % Dr. Jennifer Lu Work Phone: [facility] 10-07-2022 13:47-0500 Systolic blood pressure 112 mm[Hg] Dr. Jennifer Lu Work Phone: [facility] 07-12-2022 16:10-0400 Body height 165.[address] Jennifer Lu Work Phone: [facility] Work Phone: 07-12-2022 16:10-0400 Body temperature 97 [degF] Dr. Jennifer Lu Work Phone: [facility] Work Phone: 07-12-2022 16:10-0400 Diastolic blood pressure 58 mm[Hg] Dr. Jennifer Lu Work Phone: [facility] Work Phone: 07-12-2022 16:10-0400 Heart rate 61 /min Dr. Jennifer Lu Work Phone: [facility] Work Phone: 07-12-2022 16:10-0400 Inhaled oxygen flow rate 4 L/min Dr. Jennifer Lu Work Phone: [facility] Work Phone: 07-12-2022 16:10-0400 Respiratory rate 18 /min Dr. Jennifer Lu Work Phone: [facility] Work Phone: 07-12-2022 16:10-0400 SaO2% (BldA) [Mass fraction] 100 % Dr. Jennifer Lu Work Phone: [facility] Work Phone: 07-12-2022 16:10-0400 Systolic blood pressure 131 mm[Hg] Dr. Jennifer Lu Work Phone: [facility] Work Phone: 06-16-2022 15:14-0400 Heart rate 67 /min Dr. Jennifer Lu Work Phone: [facility] Work Phone: 06-16-2022 15:05-0400 Body mass index (BMI) [Ratio] 43.7 kg/m2 Dr. Jennifer Lu Work Phone: [facility] Work Phone: 06-16-2022 15:05-0400 Body weight 119.[address] Jennifer Lu Work Phone: [facility] Work Phone: 06-16-2022 15:05-0400 Diastolic blood pressure 64 mm[Hg] Dr. Jennifer Lu Work Phone: [facility] Work Phone: 06-16-2022 15:05-0400 Inhaled oxygen flow rate 4 L/min Dr. Jennifer Lu Work Phone: [facility] Work Phone: 06-16-2022 15:05-0400 Respiratory rate 20 /min Dr. Jennifer Lu Work Phone: [facility] Work Phone: 06-16-2022 15:05-0400 Systolic blood pressure 102 mm[Hg] Dr. Jennifer Lu Work Phone: [facility] Work Phone: 06-14-2022 15:09-0400 Body height 165.[address] Jennifer Lu Work Phone: [facility] Work Phone: 06-14-2022 15:09-0400 Body mass index (BMI) [Ratio] 44.7 kg/m2 Dr. Jennifer Lu Work Phone: [facility] Work Phone: 06-14-2022 15:09-0400 Body temperature 97.9 [degF] Dr. Jennifer Lu Work Phone: [facility] Work Phone: 06-14-2022 15:09-0400 Body weight 122.[address] Jennifer Lu Work Phone: [facility] Work Phone: 06-14-2022 15:09-0400 Diastolic blood pressure 39 mm[Hg] Dr. Jennifer Lu Work Phone: [facility] Work Phone: 06-14-2022 15:09-0400 Heart rate 56 /min Dr. Jennifer Lu Work Phone: [facility] Work Phone: 06-14-2022 15:09-0400 Inhaled oxygen flow rate 4 L/min Dr. Jennifer Lu Work Phone: [facility] Work Phone: 06-14-2022 15:09-0400 Respiratory rate 18 /min Dr. Jennifer Lu Work Phone: [facility] Work Phone: 06-14-2022 15:09-0400 SaO2% (BldA) [Mass fraction] 100 % Dr. Jennifer Lu Work Phone: [facility] Work Phone: 06-14-2022 15:09-0400 Systolic blood pressure 99 mm[Hg] Dr. Jennifer Lu Work Phone: [facility] Work Phone: 04-16-2022 13:16-0400 Inhaled oxygen flow rate 4 L/min Dr. Jennifer Lu Work Phone: [facility] Work Phone: 04-16-2022 13:16-0400 SaO2% (BldA) [Mass fraction] 95 % Dr. Jennifer Lu Work Phone: [facility] Work Phone: 04-16-2022 12:47-0400 Body height 165.[address] Jennifer Lu Work Phone: [facility] Work Phone: 04-16-2022 12:47-0400 Body mass index (BMI) [Ratio] 43.7 kg/m2 Dr. Jennifer Lu Work Phone: [facility] Work Phone: 04-16-2022 12:47-0400 Body temperature 97.5 [degF] Dr. Jennifer Lu Work Phone: [facility] Work Phone: 04-16-2022 12:47-0400 Body weight 119.[address] Jennifer Lu Work Phone: [facility] Work Phone: 04-16-2022 12:47-0400 Diastolic blood pressure 70 mm[Hg] Dr. Jennifer Lu Work Phone: [facility] Work Phone: 04-16-2022 12:47-0400 Heart rate 58 /min Dr. Jennifer Lu Work Phone: [facility] Work Phone: 04-16-2022 12:47-0400 Systolic blood pressure 110 mm[Hg] Dr. Jennifer Lu Work Phone: [facility] Work Phone: 03-15-2022 14:47-0400 Body height 165.[address] Jennifer Lu Work Phone: [facility] Work Phone: 03-15-2022 14:47-0400 Body mass index (BMI) [Ratio] 41.5 kg/m2 Dr. Jennifer Lu Work Phone: [facility] Work Phone: 03-15-2022 14:47-0400 Body temperature 97.9 [degF] Dr. Jennifer Lu Work Phone: [facility] Work Phone: 03-15-2022 14:47-0400 Body weight 113.[address] Jennifer Lu Work Phone: [facility] Work Phone: 03-15-2022 14:47-0400 Diastolic blood pressure 61 mm[Hg] Dr. Jennifer Lu Work Phone: [facility] Work Phone: 03-15-2022 14:47-0400 Heart rate 74 /min Dr. Jennifer Lu Work Phone: [facility] Work Phone: 03-15-2022 14:47-0400 Inhaled oxygen flow rate 4 L/min Dr. Jennifer Lu Work Phone: [facility] Work Phone: 03-15-2022 14:47-0400 Respiratory rate 20 /min Dr. Jennifer Lu Work Phone: [facility] Work Phone: 03-15-2022 14:47-0400 SaO2% (BldA) [Mass fraction] 100 % Dr. Jennifer Lu Work Phone: [facility] Work Phone: 03-15-2022 14:47-0400 Systolic blood pressure 128 mm[Hg] Dr. Jennifer Lu Work Phone: [facility] Work Phone: 12-07-2021 14:36-0500 Body mass index (BMI) [Ratio] 42.9 kg/m2 Dr. Jennifer Lu Work Phone: [facility] Work Phone: 12-07-2021 14:36-0500 Body weight 117.[address] Jennifer Lu Work Phone: [facility] Work Phone: 12-07-2021 14:36-0500 Diastolic blood pressure 72 mm[Hg] Dr. Jennifer Lu Work Phone: [facility] Work Phone: 12-07-2021 14:36-0500 Heart rate 49 /min Dr. Jennifer Lu Work Phone: [facility] Work Phone: 12-07-2021 14:36-0500 Systolic blood pressure 134 mm[Hg] Dr. Jennifer Lu Work Phone: [facility] Work Phone: Encounters Encounter Date Encounter Type Care Provider Facility Start: 05-22-2025 End: 05-22-[address] Pepe Au MD -[facility] Work Phone: Start: 05-22-2025 End: 05-22-[address] Rios Downey DO Work Phone: [facility] Work Phone: Start: 04-25-2025 End: 04-25-[address] Pepe Au MD -[facility] Work Phone: Start: 04-25-2025 End: 04-25-[address] Rios Downey DO Work Phone: [facility] Work Phone: Start: 04-15-2025 End: 04-15-[address] Pepe Au MD -[facility] [place] Work Phone: Start: 04-15-2025 End: 04-15-2025 ambulatory Pepe Au Facility:[facility] Start: 03-28-2025 End: 03-28-[address] Pepe Au MD -[facility] Work Phone: Start: 03-28-2025 End: 03-28-2025 ambulatory Pepe Au Facility:[facility] Start: 03-14-2025 End: 03-14-2025 Patient encounter procedure Gosia Saenz [facility] Work Phone: Start: 03-14-2025 End: 03-14-[address] [facility] Start: 02-26-2025 End: 02-26-[address] Pepe Au MD -[facility] Work Phone: Start: 02-26-2025 End: 02-26-[address] Rios Downey DO Work Phone: [facility] Work Phone: Start: 01-29-2025 End: 01-29-[address] Pepe Au MD [facility] Work Phone: Start: 01-29-2025 End: 01-29-[address] [facility] Start: 01-01-2025 End: 01-01-[address] Pepe Au MD -[facility] Work Phone: Start: 01-01-2025 End: 01-01-[address] [facility] Start: 12-04-2024 End: 12-04-[address] Pepe Au MD -[facility] Work Phone: Start: 12-04-2024 End: 12-04-[address] [facility] Start: 11-07-2024 Encounter for genera l adult medical examination without abnormal findings [facility] Start: 10-31-2024 End: 10-31-[address] Pepe Au MD -[facility] Work Phone: Start: 10-31-2024 End: 10-31-2024 ambulatory Rios Maloneins Facility:[facility] Start: 10-22-2024 End: 10-22-2024 ambulatory [facility] Facility:[facility] Start: 10-15-2024 End: 10-15-2024 ambulatory Rios Downey Facility:[facility] Start: 10-10-2024 ambulatory Rios Downey Facility: [facility] Start: 10-10-2024 End: 10-10-2024 ambulatory Rios Downey Facility:[facility] Start: 10-02-2024 End: 10-02-2024 ambulatory [facility] Facility:[facility] Start: 09-24-2024 End: 09-24-2024 ambulatory Rios Downey Facility:[facility] Start: 08-30-2024 End: 08-30-2024 ambulatory [facility] Facility:[facility] Start: 08-02-2024 End: 08-02-2024 ambulatory [facility] Facility:[facility] Start: 07-04-2024 End: 07-04-2024 ambulatory [facility] Facility:[facility] Start: 06-06-2024 End: 06-06-2024 ambulatory [facility] Facility:[facility] Start: 05-30-2024 End: 05-30-2024 ambulatory [facility] Facility:[facility] Start: 03-23-2024 End: 03-23-[address] Rios Downey Work Phone: [facility] Work Phone: Start: 03-22-2024 End: 03-22-[address] Rios Downey Work Phone: [facility] Work Phone: Start: 03-22-2024 End: 03-22-[address] Rios Downey Work Phone: [facility] Work Phone: Start: 03-14-2024 End: 03-14-2024 ambulatory [facility] Work Phone: Start: 03-14-2024 End: 03-14-2024 [facility] Start: 02-19-2024 End: 02-19-2024 Emergency department patient visit [facility] Work Phone: Start: 02-15-2024 End: 02-16-2024 Emergency department patient visit [facility] Work Phone: Start: 02-15-2024 End: 02-15-2024 ambulatory [facility] Work Phone: Start: 02-15-2024 End: 02-15-2024 [facility] Start: 01-18-2024 End: 01-18-[address] Rios Downey Work Phone: [facility] Work Phone: Start: 01-18-2024 End: 01-18-[address] [facility] Dow[facility] Start: 12-21-2023 End: 12-21-[address] [facility] Start: 12-02-2023 End: 12-02-[address] Rios Downey Work Phone: [facility] Work Phone: Start: 11-23-2023 End: 11-23-[address] Rios Downey Work Phone: [facility] Work Phone: Start: 11-23-2023 End: 11-23-[address] [facility] Dow[facility] Start: 11-23-2023 End: 11-23-2023 Dr. Rios Downey Work Phone: [facility] Work Phone: Start: 10-26-2023 End: 10-26-[address] Rios Downey Work Phone: [facility] Work Phone: Start: 10-26-2023 End: 10-26-[address] Rios Downey Work Phone: [facility] Work Phone: Start: 10-26-2023 End: 10-26-2023 Dr. Rios Downey Work Phone: [facility] Work Phone: Start: 10-05-2023 End: 10-05-[address] Rios Downey Work Phone: [facility] Work Phone: Start: 10-05-2023 End: 10-05-2023 Dr[facility] Work Phone: Start: 09-28-2023 End: 09-28-[address] Rios Downey Work Phone: [facility] Work Phone: Start: 09-28-2023 End: 09-28-[address] Rios Downey Work Phone: [facility] Work Phone: Start: 09-28-2023 End: 09-28-2023 Dr. Rios Downey Work Phone: [facility] Work Phone: Start: 09-22-2023 Non-patient / Non-visit Dr. Carlos Downey Work Phone: [facility] Work Phone: Start: 09-22-2023 Dr. Rios Malone ins Work Phone: [facility] Work Phone: Start: 09-22-2023 Non-patient / Non-visit Dr. Carlos Downey Work Phone: [facility] Start: 09-22-2023 Dr. Rios Malone ins Work Phone: [facility] Start: 09-21-2023 Non-patient / Non-visit Dr. Carlos Downey Work Phone: [facility] Work Phone: Start: 09-21-2023 Dr. Rios Malone ins Work Phone: [facility] Work Phone: Start: 09-21-2023 Non-patient / Non-visit Dr. Carlos Downey Work Phone: [facility] Start: 09-21-2023 Dr. Rios Malone ins Work Phone: [facility] Start: 09-20-2023 Dr. Rios Malone ins Work Phone: [facility] Start: 09-20-2023 Dr. Rios Malone ins Work Phone: [facility] Work Phone: Start: 09-19-2023 Dr. Rios Malone ins Work Phone: [facility] Work Phone: Start: 09-18-2023 Dr. Rios Malone ins Work Phone: [facility] [facility] Work Phone: Start: 09-17-2023 Dr. Rios Malone ins Work Phone: [facility] Work Phone: Start: 09-16-2023 End: 09-22-2023 Evaluation and management of inpatient Dr. Rios Downey Work Phone: [facility] Work Phone: Start: 09-16-2023 End: 09-22-2023 Dr. Rios Downey Work Phone: [facility] Work Phone: Start: 08-31-2023 End: 08-31-2023 Dr. Rios Downey Work Phone: [facility]Emergency Department Work Phone: Start: 08-22-2023 Dr. Rios winters Work Phone: [facility] Work Phone: Start: 08-21-2023 Dr. Rios winters Work Phone: [facility] Work Phone: Start: 08-20-2023 Dr. Rios winters Work Phone: [facility] Work Phone: Start: 08-19-2023 Dr. Rios winters Work Phone: [facility] Work Phone: Start: 08-18-2023 Evaluation and management of inpatient Dr. Rios Downey Work Phone: [facility] Work Phone: Start: 08-18-2023 End: 08-22-2023 Evaluation and management of inpatient Dr. Rios Downey Work Phone: [facility] Work Phone: Start: 08-18-2023 End: 08-22-2023 Dr. Rios Downey Work Phone: [facility] Work Phone: Start: 08-18-2023 Dr. Rios winters Work Phone: [facility] Work Phone: Start: 08-06-2023 End: 08-06-[address] Rios Downey Work Phone: [facility] Work Phone: Start: 08-06-2023 End: 08-06-[address] [facility] Dow[facility] Work Phone: Start: 08-06-2023 End: 08-06-2023 Dr. Rios Downey [facility] Work Phone: Start: 07-23-2023 End: 07-23-[address] Rios Downey Work Phone: [facility], [facility] Work Phone: Start: 07-23-2023 End: 07-23-2023 Dr. Rios Downey Work Phone: [facility], [facility] Work Phone: Start: 07-22-2023 End: 07-22-[address] Rios Downey Work Phone: [facility] Work Phone: Start: 07-22-2023 End: 07-22-[address] Rios Downey Work Phone: [facility] Work Phone: Start: 07-22-2023 End: 07-22-2023 Dr. Rios Downey Work Phone: [facility] Work Phone: Start: 07-06-2023 End: 07-06-[address] Rios Downey Work Phone: [facility] Work Phone: Start: 07-06-2023 End: 07-06-[address] Rios Downey Work Phone: [facility] Work Phone: Start: 07-06-2023 End: 07-06-2023 Dr. Rios Downey Work Phone: [facility] Work Phone: Start: 07-03-2023 End: 08-18-2023 Evaluation and management of inpatient Dr. Rios Downey [facility] Start: 07-03-2023 End: 08-18-2023 Dr. Rios Downey [facility] Start: 07-03-2023 Non-patient / Non-visit Dr. Carlos Downey Work Phone: [facility] Work Phone: Start: 07-03-2023 Dr. Rios winters Work Phone: [facility] Work Phone: Start: 07-02-2023 Non-patient / Non-visit Dr. Carlos Downey Work Phone: [facility] Work Phone: Start: 07-02-2023 Dr. Rios Malone ins Work Phone: [facility] Work Phone: Start: 07-01-2023 Non-patient / Non-visit Dr. Carlos Downey Work Phone: [facility] Work Phone: Start: 07-01-2023 Dr. Rios winters Work Phone: [facility] Work Phone: Start: 06-30-2023 Non-patient / Non-visit Dr. Carlos Downey Work Phone: [facility] Work Phone: Start: 06-30-2023 Dr. Rios Malone ins Work Phone: [facility] Work Phone: Start: 06-30-2023 End: 07-03-2023 Evaluation and management of inpatient Dr. Rios Downey Work Phone: [facility] Work Phone: Start: 06-30-2023 End: 07-03-2023 Dr. Rios Downey Work Phone: [facility] Work Phone: Start: 06-30-2023 Non-patient / Non-visit Dr. Carlos Downey Work Phone: [facility] Start: 06-30-2023 Dr. Rios Malone ins Work Phone: [facility] Start: 06-29-2023 Non-patient / Non-visit Dr. Carlos Downey Work Phone: [facility] Start: 06-29-2023 Dr. Rios winters Work Phone: [facility] Start: 06-29-2023 Non-patient / Non-visit Dr. Carlos Downey Work Phone: [facility] Work Phone: Start: 06-29-2023 Dr. Rios wintesr Work Phone: [facility] Work Phone: Start: 06-29-2023 Evaluation and management of inpatient [facility] Work Phone: Start: 06-29-2023 observation encounter [facility] Work Phone: Start: 06-13-2023 End: 06-13-2023 ambulatory [facility] Work Phone: Start: 06-13-2023 End: 06-13-2023 [facility] Start: 06-13-2023 End: 06-13-2023 Dr. Rios Downey Work Phone: [facility] Work Phone: Start: 05-26-2023 End: 05-26-2023 ambulatory [facility] Work Phone: Start: 05-26-2023 End: 05-26-2023 Patient encounter procedure [facility] Work Phone: Start: 05-26-2023 End: 05-26-2023 Dr. Rios Downey Work Phone: [facility] Work Phone: Start: 05-16-2023 End: 05-16-[address] Rios Downey Work Phone: [facility] Work Phone: Start: 05-16-2023 End: 05-16-[address] Rios Downey Work Phone: [facility] Start: 05-16-2023 End: 05-16-2023 Dr. Rios Downey Work Phone: [facility] Work Phone: Start: 05-12-2023 End: 05-17-2023 ambulatory RIOS DOWNEY DO Facility:[facility] Start: 05-12-2023 End: 05-16-2023 Outreach Lab JENNIFER LU MD [facility] Start: 04-18-2023 End: 04-18-[address] Rios Downey Work Phone: [facility] Start: 04-18-2023 End: 04-18-2023 Dr. Rios Downey Work Phone: [facility] Work Phone: Start: 03-21-2023 End: 03-21-[address] Rios Downey Work Phone: [facility] Work Phone: Start: 03-21-2023 End: 03-21-[address] Rios Downey Work Phone: [facility] Start: 03-21-2023 End: 03-21-2023 Dr. Rios Downey Work Phone: [facility] Work Phone: Start: 02-21-2023 End: 02-21-[address] Rios Downey Work Phone: [facility] Work Phone: Start: 02-21-2023 End: 02-21-[address] Rios Downey Work Phone: [facility] Start: 01-31-2023 End: 01-31-[address] Jennifer Lu Work Phone: [facility] Work Phone: Start: 01-31-2023 End: 01-31-[address] Jennifer Lu Work Phone: [facility] Start: 01-31-2023 End: 01-31-[address] Jennifer Lu Work Phone: [facility] Start: 01-24-2023 End: 01-24-[address] Jennifer Lu Work Phone: [facility] Work Phone: Start: 01-24-2023 End: 01-24-[address] Jennifer Lu Work Phone: [facility] Start: 12-28-2022 End: 12-28-[address] Jennifer Lu Work Phone: [facility] Work Phone: Start: 12-28-2022 End: 12-28-[address] Jennifer Lu Work Phone: [facility] Start: 12-02-2022 End: 12-02-[address] Jennifer Lu Work Phone: [facility] Work Phone: Start: 12-02-2022 End: 12-02-[address] Jennifer Lu Work Phone: [facility] Start: 11-24-2022 End: 11-24-[address] Jennifer Lu Work Phone: [facility] Start: 11-01-2022 End: 11-01-[address] Jennifer Lu Work Phone: [facility] Work Phone: Start: 11-01-2022 End: 11-01-[address] [facility] Start: 10-07-2022 End: 10-07-[address] Jennifer Lu Work Phone: [facility]Pulmonary Medicine [facility] Start: 10-04-2022 End: 10-04-[address] [facility] Start: 09-29-2022 End: 09-29-[address] Jennifer Lu Work Phone: [facility] Work Phone: Start: 09-29-2022 End: 09-29-[address] Jennifer Lu Work Phone: [facility] Start: 09-06-2022 End: 09-06-[address] Jennifer Lu Work Phone: [facility] Work Phone: Start: 09-06-2022 End: 09-06-[address] [facility] Start: 08-27-2022 End: 08-27-[address] Jennifer Lu Work Phone: [facility] Work Phone: Start: 08-27-2022 End: 08-27-[address] Jennifer Lu Work Phone: [facility] Start: 08-09-2022 End: 08-09-[address] Jennifer Lu Work Phone: [facility] Work Phone: Start: 08-09-2022 End: 08-09-[address] [facility] Start: 07-16-2022 End: 07-16-[address] Jennifer Lu Work Phone: [facility] Work Phone: Start: 07-16-2022 End: 07-16-[address] Jennifer Lu Work Phone: [facility] Start: 07-12-2022 End: 07-12-[address] [facility] Start: 07-09-2022 End: 07-09-[address] Jennifer Lu Work Phone: [facility] Start: 06-18-2022 End: 06-18-[address] Jennifer Lu Work Phone: [facility] Start: 06-16-2022 End: 06-16-[address] Jennifer Lu Work Phone: [facility] Start: 06-14-2022 End: 06-14-[address] [facility] Start: 05-18-2022 End: 05-18-[address] Jennifer Lu Work Phone: [facility] Start: 05-17-2022 End: 05-17-[address] [facility] Start: 04-16-2022 End: 04-16-[address] Jennifer Lu [facility] Start: 04-12-2022 End: 04-12-2022 [facility] Start: 03-29-2022 End: 03-29-[address] Jennifer Lu Work Phone: [facility] Start: 03-15-2022 End: 03-15-[address] [facility] Lu [facility] Start: 02-15-2022 End: 02-15-[address] [facility] Lu [facility] Start: 01-25-2022 End: 01-25-[address] Jennifer Lu Work Phone: [facility] Start: 01-18-2022 End: 01-18-[address] [facility] Start: 12-21-2021 End: 12-21-[address] Jennifer Lu Work Phone: [facility] Start: 12-07-2021 End: 12-07-[address] Jennifer Lu Work Phone: [facility] Virt Procedures Date Procedure Procedure Detail Performing Clinician Start: 05-22-2025 Serum inorganic phos phate measurement Dr. Rios Downey DO Work Phone: Start: 05-22-2025 Total iron binding capacity measurement Dr. Rios Downey DO Work Phone: Start: 04-25-2025 Serum inorganic phos phate measurement [...] Dr. Rios Downey DO Work Phone: Start: 02-19-2024 SARS-CoV-2, Influenz [...] Date Care Activity Detail Author Start: 02-19-2024 [facility] Start: 02-16-2024 [facility] Start: 09-28-2023 [facility] Start: 09-28-2023 Ther proph/dx njx iv push single/1st sbst/drug [facility] Start: 09-22-2023 Patient discharge [facility] Start: 09-20-2023 Dual pressure sponta neous ventilation support [facility] Start: 09-20-2023 Consultation [facility] Start: 09-20-2023 Referral to service [facility] Start: 09-18-2023 End: 09-19-2023 [facility] Start: 09-18-2023 [facility] Start: 09-16-2023 Dual pressure sponta neous ventilation support [facility] Start: 09-16-2023 Following clinical p athway protocol [facility] Start: 09-16-2023 Application of elastic bandage [facility] Start: 09-16-2023 Assessment of risk o f venous thromboembolism [facility] Start: 09-16-2023 Care regimes management [facility] Start: 09-16-2023 Continuous pulse oximetry [facility] Start: 09-16-2023 Elevation of affected extremity [facility] Start: 09-16-2023 Fall prevention [facility] Start: 09-16-2023 Inhalation therapy procedure [facility] Start: 09-16-2023 Insertion of cathete r into peripheral vein [facility] Start: 09-16-2023 Introduction of urinary catheter [facility] Start: 09-16-2023 Measuring intake and output [facility] Start: 09-16-2023 Notification of physician [facility] Start: 09-16-2023 Oxygen therapy [facility] Start: 09-16-2023 Patient education [facility] Start: 09-16-2023 Providing care accor ding to standard [facility] Start: 09-16-2023 Provision of activity privileges [facility] Start: 09-16-2023 Referral to occupati onal therapist [facility] Start: 09-16-2023 Referral to service [facility] Start: 09-16-2023 SARS-CoV-2 [facility] Start: 09-16-2023 End: 09-16-2023 [facility] Start: 09-16-2023 Verification routine [facility] Start: 09-16-2023 Admission procedure [facility] Start: 09-16-2023 Hospital admission, emergency, from emergency room, medical nature [facility] Start: 08-22-2023 Patient discharge [facility] Start: 08-21-2023 [facility] Start: 08-19-2023 Development of care plan [facility] Start: 08-19-2023 [facility] Start: 08-18-2023 Aspiration precautions [facility] Start: 08-18-2023 Assessment of risk o f venous thromboembolism [facility] Start: 08-18-2023 Cardiac monitoring [facility] Start: 08-18-2023 Care regimes management [facility] Start: 08-18-2023 Catheterization of vein [facility] Start: 08-18-2023 Continuous pulse oximetry [facility] Start: 08-18-2023 Elevation of head of bed [facility] Start: 08-18-2023 Exercises [facility] Start: 08-18-2023 Fall prevention [facility] Start: 08-18-[address] anned interventions [facility] Start: 08-18-2023 Inhalation therapy procedure [facility] Start: 08-18-2023 Insertion of cathete r into peripheral vein [facility] Start: 08-18-2023 Introduction of urinary catheter [facility] Start: 08-18-2023 Measuring intake and output [facility] Start: 08-18-2023 Notification of physician [facility] Start: 08-18-2023 Oxygen therapy [facility] Start: 08-18-2023 Patient referral to dietitian [facility] Start: 08-18-2023 Providing care accor ding to standard [facility] Start: 08-18-2023 Provision of activity privileges [facility] Start: 08-18-2023 Referral to occupati onal therapist [facility] Start: 08-18-2023 Referral to service [facility] Start: 08-18-2023 Speech therapy assessment [facility] Start: 08-18-2023 Tobacco use cessation education [facility] Start: 08-18-2023 [facility] Start: 08-18-2023 Vital signs measurements [facility] Start: 08-18-2023 Dual pressure sponta neous ventilation support [facility] Start: 08-18-2023 Verification routine [facility] Start: 08-18-2023 Gas panel - Arterial blood [facility] Start: 08-18-2023 Admission procedure [facility] Start: 08-18-2023 Oxygen therapy [facility] Start: 08-18-2023 [facility] Start: 08-18-2023 Wound care [facility] Start: 08-18-2023 Patient discharge [facility] Start: 08-18-2023 [facility] Start: 08-14-2023 SARS-CoV-2 (COVID-19 ) Ag [Presence] in Respiratory specimen by Rapid immunoassay [facility] Start: 08-13-2023 [facility] Start: 08-12-2023 SARS-CoV-2 (COVID-19 ) Ag [Presence] in Respiratory specimen by Rapid immunoassay [facility] Start: 08-02-2023 Speech therapy management [facility] Start: 08-01-2023 Wound care [facility] Start: 08-01-2023 Blood chemistry [facility] Start: 08-01-2023 Continuous positive [facility] Start: 07-31-2023 [facility] Start: 07-29-2023 Developing a treatment plan [facility] Start: 07-29-2023 Development of care plan [facility] Start: 07-27-2023 [facility] Start: 07-25-2023 Blood chemistry [facility] Start: 07-18-2023 Blood chemistry [facility] Start: 07-12-2023 Verification routine [facility] Start: 07-08-2023 Referral to patient care [facility] Start: 07-07-2023 Wound care [facility] Start: 07-06-2023 Wound care [facility] Start: 07-04-2023 Development of care plan [facility] Start: 07-04-2023 Speech therapy management [facility] Start: 07-04-2023 Verification routine [facility] Start: 07-04-2023 Developing a treatment plan [facility] Start: 07-03-2023 End: 07-04-2023 [facility] Start: 07-03-2023 Consultation for treatment [facility] Start: 07-03-2023 Speech therapy assessment [facility] Start: 07-03-2023 Wound care [facility] Start: 07-03-2023 Seizure precautions [facility] Start: 07-03-2023 Following clinical p athway protocol [facility] Start: 07-03-2023 Oxygen therapy [facility] Start: 07-03-2023 Admission procedure [facility] Start: 07-03-2023 Measuring intake and output [facility] Start: 07-03-2023 Patient referral to dietitian [facility] Start: 07-03-2023 Referral to occupati onal therapist [facility] Start: 07-03-2023 Referral to service [facility] Start: 07-03-2023 Vital signs measurements [facility] Start: 07-03-2023 Patient discharge [facility] Start: 07-03-2023 Patient referral to dietitian [facility] Start: 07-03-2023 Speech therapy assessment [facility] Start: 07-03-2023 [facility] Start: 07-01-2023 [facility] Start: 06-30-2023 Admission procedure [facility] Start: 06-30-2023 Thyroid stimulating hormone measurement [facility] Start: 06-29-2023 Ambulation without limitation [facility] Start: 06-29-2023 Assessment of risk o f venous thromboembolism [facility] Start: 06-29-2023 Cardiac monitoring [facility] Start: 06-29-2023 Catheterization of vein [facility] Start: 06-29-2023 Continuous pulse oximetry [facility] Start: 06-29-2023 Elevation of head of bed [facility] Start: 06-29-2023 Exercises [facility] Start: 06-29-[address] anned interventions [facility] Start: 06-29-2023 Insertion of cathete r into peripheral vein [facility] Start: 06-29-2023 Measuring intake and output [facility] Start: 06-29-2023 Notification of physician [facility] Start: 06-29-2023 Oxygen therapy [facility] Start: 06-29-2023 Providing care accor ding to standard [facility] Start: 06-29-2023 Referral to occupati onal therapist [facility] Start: 06-29-2023 Referral to service [facility] Start: 06-29-2023 Speech therapy assessment [facility] Start: 06-29-2023 Tobacco use cessation education [facility] Start: 06-29-2023 Following clinical p athway protocol [facility] Start: 06-29-2023 End: 06-29-2023 [facility] Start: 06-29-2023 Verification routine [facility] Start: 06-29-2023 Admission procedure [facility] Start: 06-29-2023 Gas panel - Venous blood [facility] Start: 06-29-2023 Oxygen therapy [facility] Start: 06-29-2023 [facility] Start: 01-31-2023 [facility] Anion gap measurement [facility] Anion gap measurement [facility] Anion gap measurement [facility] Bilirubin measurement, urine [facility] BUN/Creatinine ratio [facility] BUN/Creatinine ratio [facility] BUN/Creatinine ratio [facility] Calcium [Mass/volume ] in Serum or Plasma [facility] Calcium [Mass/volume ] in Serum or Plasma [facility] Calcium [Mass/volume ] in Serum or Plasma [facility] Carbon dioxide, tota l [Moles/volume] in Serum or Plasma [facility] Carbon dioxide, tota l [Moles/volume] in Serum or Plasma [facility] Carbon dioxide, tota l [Moles/volume] in Serum or Plasma [facility] Chloride [Moles/volu me] in Serum or Plasma [facility] Chloride [Moles/volu me] in Serum or Plasma [facility] Chloride [Moles/volu me] in Serum or Plasma [facility] Creatinine [Moles/vo lume] in Serum or Plasma [facility] Creatinine [Moles/vo lume] in Serum or Plasma [facility] Creatinine [Moles/vo lume] in Serum or Plasma [facility] Glucose [Mass/volume ] in Serum or Plasma [facility] Glucose [Mass/volume ] in Serum or Plasma [facility] Glucose [Mass/volume ] in Serum or Plasma [facility] Hematocrit [Volume F raction] of Blood [facility] Hematocrit [Volume F raction] of Blood [facility] Hematocrit [Volume F raction] of Blood [facility] Hemoglobin [Mass/volume] in Blood [facility] Hemoglobin [Mass/volume] in Blood [facility] Hemoglobin [Mass/volume] in Blood [facility] Hemoglobin [Presence] in Urine [facility] Leukocytes [#/volume] in Blood [facility] Leukocytes [#/volume] in Blood [facility] Leukocytes [#/volume] in Blood [facility] Magnesium [Mass/volu me] in Serum or Plasma [facility] Mean corpuscular hem oglobin concentration determination [facility] Mean corpuscular hem oglobin concentration determination [facility] Mean corpuscular hem oglobin concentration determination [facility] Mean corpuscular hem oglobin determination [facility] Mean corpuscular hem oglobin determination [facility] Mean corpuscular hem oglobin determination [facility] Measurement of keton es in urine using dipstick [facility] Measurement of renal function [facility] Measurement of renal function [facility] Measurement of renal function [facility] Microscopic urinalysis [facility] Neutrophil count [facility] Neutrophil count [facility] Neutrophil count [facility] Neutrophil percent d ifferential count [facility] Neutrophil percent d ifferential count [facility] Neutrophil percent d ifferential count [facility] Patient Education [facility] Work Phone: Patient referral [facility] Work Phone: pH of Urine [facility] Platelets [#/volume] in Blood [facility] Platelets [#/volume] in Blood [facility] Platelets [#/volume] in Blood [facility] Potassium [Moles/vol ume] in Serum or Plasma [facility] Potassium [Moles/vol ume] in Serum or Plasma [facility] Potassium [Moles/vol ume] in Serum or Plasma [facility] Red blood cell count [facility] Red blood cell count [facility] Red blood cell count [facility] Red cell distributio n width determination [facility] Red cell distributio n width determination [facility] Red cell distributio n width determination [facility] Respiratory pathogen s DNA and RNA panel - Respiratory specimen by ELIANE with probe detection [facility] Sodium [Moles/volume ] in Serum or Plasma [facility] Sodium [Moles/volume ] in Serum or Plasma [facility] Sodium [Moles/volume ] in Serum or Plasma [facility] Specific gravity of Urine [facility] Urea nitrogen [Mass/ volume] in Serum or Plasma [facility] Urea nitrogen [Mass/ volume] in Serum or Plasma [facility] Urea nitrogen [Mass/ volume] in Serum or Plasma [facility] Urinalysis, blood, qualitative [facility] Urine dipstick for glucose [facility] Urine dipstick for l eukocyte esterase [facility] Urine dipstick for nitrite [facility] Urine dipstick for protein [facility] Urine examination [facility] Urine microscopy: ep ithelial cells [facility] Urine Microscopy: white cells [facility] Urobilinogen [Presence] in Urine [facility] Immunizations Immunization Date Immunization Notes Care Provider Fa cility 08-31-2023 tetanus toxoid, redu steph diphtheria toxoid, and acellular pertussis vaccine, adsorbed Dr. Rois Downey Work Phone: [facility] 07-12-2023 Covid Moderna Bivale nt Booster Dr. Rios Downey Work Phone: [facility] 10-06-2022 influenza, high dose seasonal, preservative-free JENNIFER LU MD [facility] 10-06-2022 Influenza, high dose seasonal Dr. Rios Downey DO Work Phone: [facility] 03-16-2022 COVID-19, mRNA, LNP- S, PF, 100 mcg or 50 mcg dose; Translations: [Moderna COVID-19 Vaccine] JENNIFER LU MD [facility] 12-03-2021 COVID-19, mRNA, LNP- S, PF, 100 mcg or 50 mcg dose; Translations: [Moderna COVID-19 Vaccine] JENNIFER LU MD [facility] 09-17-2021 influenza, high dose seasonal, preservative-free; Translations: [Fluad Quadrivalent PF ] JENNIFER LU MD [facility] 09-17-2021 Influenza, high dose seasonal Dr. Rios Downey DO Work Phone: [facility] 01-20-2021 COVID-19, mRNA, LNP- S, PF, 100 mcg or 50 mcg dose; Translations: [Moderna COVID-19 Vaccine] JENNIFER LU MD [facility] 12-25-2020 SARS-CoV-2 (COVID-19 ) [id number] vaccine JENNIFER LU MD [facility] 08-15-2020 influenza, injectabl e, quadrivalent, preservative free; Translations: [Fluarix PF Quadrivalent ] JENNIFER LU MD [facility] 08-15-2020 influenza, seasonal, injectable Dr. Rios Downey Work Phone: [facility] 09-13-2019 influenza, injectabl e, quadrivalent, preservative free; Translations: [Fluarix PF Quadrivalent ] JENNIFER LU MD [facility] 09-13-2019 influenza, seasonal, injectable Dr. Rios Downey Work Phone: [facility] 08-28-[address] Jennifer Lu Work Phone: [facility] 09-04-2018 influenza virus vacc ine, unspecified formulation JENNIFER LU MD [facility] 09-04-2018 influenza, injectabl e, quadrivalent, preservative free Dr. Rios Downey Work Phone: [facility] 09-04-2018 influenza, seasonal, injectable Dr. Rios Downey Work Phone: [facility] 09-21-2017 influenza virus vacc ine, unspecified formulation JENNIFER LU MD [facility] 09-21-2017 influenza, injectabl e, quadrivalent, preservative free Dr. Rios Downey Work Phone: [facility] 09-21-2017 influenza, seasonal, injectable Dr. Rios Downey Work Phone: [facility] 08-22-2017 influenza, injectabl e, quadrivalent, preservative free Dr. Rios Downey Work Phone: [facility] 08-22-2017 influenza, seasonal, injectable Dr. Jennifer Lu Work Phone: [facility] 08-24-[address] Jennifer Lu Work Phone: [facility] 08-24-2016 influenza virus vacc ine, unspecified formulation JENNIFER LU MD [facility] 08-24-2016 influenza, injectabl e, quadrivalent, preservative free Dr. Rios Downey Work Phone: [facility] 08-24-2016 influenza, seasonal, injectable Dr. Rios Downey Work Phone: [facility] 07-29-2016 influenza virus vacc ine, unspecified formulation JENNIFER LU MD [facility] 07-29-2016 influenza, injectabl e, quadrivalent, preservative free Dr. Rios Downey Work Phone: [facility] 07-29-2016 influenza, seasonal, injectable Dr. Rios Downey Work Phone: [facility] 10-03-2015 influenza virus vacc ine, unspecified formulation JENNIFER LU MD [facility] 10-03-2015 influenza, injectabl e, quadrivalent, preservative free Dr. Rios Downey Work Phone: [facility] 10-03-2015 influenza, seasonal, injectable Dr. Rios Downey Work Phone: [facility] 09-11-2015 influenza, injectabl e, quadrivalent, preservative free Dr. Rios Downey Work Phone: [facility] 09-11-2015 influenza, seasonal, injectable Dr. Jennifer Lu Work Phone: [facility] 03-03-2015 pneumococcal conjuga te vaccine, 13 valent JENNIFER LU MD [facility] 10-09-2014 influenza virus vacc ine, unspecified formulation JENNIFER LU MD [facility] 10-09-2014 influenza, injectabl e, quadrivalent, preservative free Dr. Rios Downey Work Phone: [facility] 10-09-2014 influenza, seasonal, injectable Dr. Rios Downey Work Phone: [facility] 09-17-2013 influenza virus vacc ine, unspecified formulation JENNIFER LU MD [facility] 09-17-2013 influenza, injectabl e, quadrivalent, preservative free Dr. Rios Downey Work Phone: [facility] 09-17-2013 influenza, seasonal, injectable Dr. Rios Downey Work Phone: [facility] 10-02-2012 pneumococcal polysaccharide vaccine, 23 vallucy LU MD [facility] 08-04-2011 tetanus toxoid, redu steph diphtheria toxoid, and acellular pertussis vaccine, adsorbed JENNIFER LU MD [facility] 08-28-2006 pneumococcal polysaccharide vaccine, 23 valent JENNIFER LU MD [facility] Payers Date Payer Category Payer Self-pay [id number] 2006 Medicare [id number] [facility] [id number] 2006 Unknown [id number] 1940 Unknown [id number] 2.16.8 [id number] Unknown [id number] Unknown [id number] 2.16.8 [id number] Unknown [id number] 2.16.8 [id number] Unknown [id number] 2.16.8 40.1.926148.3.579.2.462 Unknown [id number] 2.16.8 40.1.323144.3.579.2.462 Unknown [id number] 2.16.8 40.1.361623.3.579.2.462 Unknown [id number] 2.16.8 40.1.743484.3.579.2.462 Unknown [id number] 2.16.8 40.1.827519.3.579.2.462 Unknown [id number] 2.16.8 40.1.963674.3.579.2.462 Unknown [id number] 2.16.8 40.1.459834.3.579.2.462 Unknown [id number] 2.16.8 40.1.921025.3.579.2.462 Unknown [id number] 2.16.8 40.1.259648.3.579.2.462 Unknown [id number] 2.16.8 40.1.881992.3.579.2.462 Unknown [id number] 2.16.8 40.1.556924.3.579.2.462 Unknown [id number] 2.16.8 40.1.329127.3.579.2.462 Unknown [id number] 2.16.8 40.1.713571.3.579.2.462 Unknown [id number] 2.16.8 40.1.164573.3.579.2.462 Unknown [id number] 2.16.8 40.1.845333.3.579.2.462 Unknown [id number] 2.16.8 40.1.148127.3.579.2.462 Unknown [id number] 2.16.8 40.1.807687.3.579.2.462 Unknown [id number] 2.16.8 40.1.955539.3.579.2.462 Unknown [id number] 2.16.8 40.1.745856.3.579.2.462 Unknown [id number] 2.16.8 40.1.243479.3.579.2.462 Social History Date Type Detail Facility Start: 12-07-2021 End: 02-19-2024 Tobacco smoking status NHIS Unknown if ever smoked [facility] Start: 01-31-2021 None [facility] Start: 01-31-2021 Spouse/ Signif icant Other [facility] Start: 02-19-2020 Non-smoker [facility] Start: 1940 Sex Assigned At Male [facility] Start: 06-15-2019 End: 10-15-2024 Tobacco smoking status Ex-smoker (finding) [facility] Comment on above: no smoke exposure Start: 06-29-2023 Cigarettes [facility] Start: 02-27-2025 Sex Male (finding) [facility] Goals Date Patient Goal Desired Activity /State Functional Status Date Assessment Result Facility 09-22-2023 Functional status Ambulates;Chair [facility] Work Phone: 08-22-2023 Functional status With Assist of [facility] Work Phone: 08-21-2023 Functional status Dangle Feet;Chair [facility] Work Phone: 08-20-2023 Functional status Standard Walker [facility] Work Phone: 08-18-2023 Functional status Ambulates [facility] Work Phone: 08-11-2023 Functional status Bedrest [facility] Work Phone: 08-10-2023 Functional status Tolerates Activity Fair [facility] Work Phone: 07-27-2023 Functional status Bedrest [facility] Work Phone: 07-26-2023 Functional status Assistive Radha pablito Rolling Walker [facility] Work Phone: 07-11-2023 Functional status Chair [facility] Work Phone: 07-03-2023 Functional status Bedrest [facility] Work Phone: 07-03-2023 Functional status Standard Walker [facility] Work Phone: Mental Status Date Assessment Result Facility 02-19-2024 Cognitive function Level Of Cons ciousness Awake;Alert;Appropriate;Follow s Commands [facility] Work Phone: 11-23-2023 Cognitive function Voice/Name [facility] Work Phone: 09-28-2023 Cognitive function Voice/Name [facility] Work Phone: 09-22-2023 Cognitive function Voice/Name [facility] Work Phone: 08-22-2023 Cognitive function Voice/Name [facility] Work Phone: 08-18-2023 Cognitive function Touch/Shaking [facility] Work Phone: 08-17-2023 Cognitive function Touch/Shaking [facility] Work Phone: 08-10-2023 Cognitive function Voice/Name [facility] Work Phone: 08-09-2023 Cognitive function Cooperative [facility] Work Phone: 07-27-2023 Cognitive function Voice/Name;Touch/Shaki ng [facility] Work Phone: 07-27-2023 Cognitive function Anxious;Restless;Fatig ued [facility] Work Phone: 07-10-2023 Cognitive function Voice/Name [facility] Work Phone: 07-03-2023 Cognitive function Voice/Name [facility] Work Phone: 06-29-2023 Cognitive function Voice/Name [facility] Work Phone: 07-12-2022 Cognitive function Awake;Alert;A ppropriate;Follow s Commands [facility] Work Phone: 03-15-2022 Cognitive function Awake;Alert;A ppropriate;Follow s Commands [facility] Work Phone: Clinical Notes 02-24-2016 to 03-14-2025 Note Date & Type Note Facility 03-14-2025 Evaluation note Diagnosis Onset Date Resolution Chronic combined systolic and diastolic CHF (congestive heart failure) chronic March 14, 2025 2:55pm Chronic respiratory failure chronic March 14, 2025 2:55pm Obstructive sleep apnea chronic A pril 2024 2:55pm [facility] Work Phone: 1(557) 767-830610-26-2023 Discharge summary Author Eladio Lucas [facility] September 22, 2023 2:22pm Note Date/Time September 22, 2023 2 :22pm [facility] Medical Records Department [address] [place] [address] Discharge Summary 09/22/23 1416 MR#: [id number] Acct: [id number] Name: JODIE CARDENAS Rep #:[id number] : 1940 83 From: Eladio ramirez MD PCP: Dr. Rios Downey DO Status:ADM IN Location: [place] [id number] Providers Date of Admission: 09/16/23 Primary Care Physician: Dr. Rios Downey, DO Consultations 09/20/23 11:34 Consult: Business Continuity Management Director / Pulmonary Medicine Routine Consulting Provider: [facility] Reason for Consult: Continued elevated O2 requirement [...] unit/mL injection solution 12 unit subcut BID [id number]/27/16 cholecalciferol (vitamin D3) 25 mcg (1,000 unit) [...] for dementia who now [facility]23 with history of discharge from SNF today specifically [facility] with reportedly transition to home and at [...] want to send him back to a chcf as she thinks that the chcf made his condition worse. I discussed with [...] (Auto) 68.7, Lymph % (Auto) 18.8 L, [place] % (Auto) 8.1, Eos % (Auto) 3.7, [...] Peters; Otto Jerry; Tal Ashraf; Gosia Saenz VE TEACHER Instructions Additional Instructions / Restrictions: Follow-up your [...] Health Service Charges/Coding Visit Charges Inpatient E&M: 18126 Disch Hosp >30min Procedures Hospitalists Procedures: 53722 Advncd Care Plan 30 Min 09/22/23 1422 <Electronically signed by Eladio Lucas MD> Cosigner Signature (if applicable): CC: Dr. Eladio Lucas MD; Dr. Rios Downey DO~ Signed [facility] Work Phone: 1(841) 525-292010-26-2023 Progress note Author Yaakov Ivan [facility] September 22, 2023 1:57pm Note Date/Time September 22, 2023 9 :27am [facility] Medical Records Department [address] [place] [address] Progress Note - Business Continuity Management Director 09/22/23 0924 MR#: [id number] Acct: [id number] Name: JODIE CARDENAS Rep #:[id number] : 1940 83 From: Yaakov Love MD PCP: Dr. Rios Downey DO Status:ADM IN Location: [place] [id number] Assessment & Plan Assessment/Plan (1) Acute exacerbation [...] (Auto) 68.7, Lymph % (Auto) 18.8 L, [place] % (Auto) 8.1, Eos % (Auto) 3.7, [...] grossly normal Charges/Coding Visit Charges Inpatient E&M: 56633 Subs Hosp L2 09/22/23 1357 <Electronically signed by Yaakov Love MD> Cosigner Signature (if applicable): CC: ~ Signed [facility] Work Phone: 1(246) 980-235910-26-2023 Discharge summary Author Eladio Lucas [facility] September 22, 2023 1:18pm Note Date/Time September 22, 2023 1 :12pm [facility] Medical Records Department [address] [place] [address] Instructions for Home/Discharge Instructions 09/22/23 1311 MR#: [id number] Acct: [id number] Name: JODIE CARDENAS Rep #:[id number] : 1940 83 From: Eladio ramirez MD [...] Peters; Otto Jerry; Tal Ashraf; Gosia Saenz VE TE[employer] Instructions Additional Instructions / Restrictions: Follow-up your [...] can be placed): Home Health Service 09/22/23 0312<Electronically signed by Eladio Lucas MD>Eladio Lucas MD CC: IAN Saenz; Dr. Aleksander Hilliard DO; Dr. Patricia Alcantara MD; Dr. Yaakov Love MD; Dr. Josh Cline DO; Dr. Michelle Peters MD; Dr. Otto Jerry MD; Dr. Woody Brunson DO; Dr. Rios Downey DO; Dr. Tal Ashraf MD ~ Signed [facility] Work Phone: 1(989) 314-800310-25-2023 Progress note Author Yaakov Ivan [facility] September 21, 2023 1:05pm Note Date/Time September 21, 2023 8 :03am [facility] Medical Records Department [address] [place] [address] Progress Note - Business Continuity Management Director 09/21/23 08 MR#: [id number] Acct: [id number] Name: JODIE CARDENAS Rep #:[id number] : 1940 83 From: Yaakov Love MD PCP: Dr. Rios Downey DO Status:ADM IN Location: [place] [address] Assessment & Plan Assessment/Plan (1) Acute exacerbation [...] grossly normal Charges/Coding Visit Charges Inpatient E&M: 76013 Subs Hosp L2 09/21/23 1305 <Electronically signed by Yaakov Love MD> Cosigner Signature (if applicable): CC: ~ Signed [facility] Work Phone: 1(330) 316-612210-25-2023 Progress note Author Eladio Lucas [facility] September 21, 2023 11:40am Note Date/Time September 21, 2023 1 1:34am [facility] Medical Records Department [address] [place] [address] Progress Note - Hospitalist 09/21/23 1131 MR#: [id number] Acct: [id number] Name: JODIE CARDENAS Rep #:[id number] : 1940 83 From: Eladio ramirez MD PCP: Dr. Rios Downey, DO Status:ADM IN Location: [place] [address] Subjective Subjective Doing well, no issues overnight [...] DVT: Eliquis Charges/Coding Visit Charges Inpatient E&M: 47406 Subs Hosp L2 09/21/23 1140 <Electronically signed by Eladio Lucas MD> Cosigner Signature (if applicable): CC: ~ Signed [facility] Work Phone: 1(151) 380-162010-24-2023 Consult note Author Yaakov Love [facility] September 20, 2023 3:26pm Note Date/Time September 20, 2023 3 :26pm [facility] Medical Records Department [address] [facility] [place] [address] Consultation - Business Continuity Management Director 09/20/23 1512 MR#: [id number] Acct: [id number] Name: JODIE CARDENAS Rep #:[id number] : 1940 83 From: Yaakov Love MD PCP: Dr. Rios Downey, DO Status:ADM IN Location: [place] [address] Assessment & Plan Assessment/Plan (1) Acute exacerbation [...] pulmonary hypertension. Patient also noted to be [id number] pounds above dry weight. Agree with diuretics [...] Reason for Consultation: Persistent hypoxia HPI Narrative: JODIE CARDENAS is an 83 M, with past medical history listed below, who presented to [facility] on 09/16/2023 secondary to a hypoxic episode. Patient reportedly was admitted at [facility] previously and transferred to a long-term center secondary to rehab. Patient reportedly was [...] be 23. Patient's BNP at that time [id number] with a troponin of 41. Chest x-ray [...] psychiatric and hematologic system unless stated above. [facility] Medical History Anemia Atherosclerosis of coronary artery bypass graft without angina pectoris Atherosclerosis of coronary artery of resighini heart without angina pectoris Chronic combined systolic [...] unit/mL injection solution 12 unit subcut BID [id number]/27/16 [History Last Taken 07/02/23] cholecalciferol (vitamin D3) [...] hr 09/19/23 11:42: POC Glucose 150 H 10/23/23 16:06: POC Glucose 131 H 09/19/23 21:59: [...] 179 H Charges/Coding Visit Charges Inpatient E&M: 60836 Init Hosp L3 09/20/23 1526 <Electronically signed by Yaakov Love MD> Cosigner Signature (if applicable): CC: VE TEACHERGianfranco Saenz; Dr. Aleksander Hilliard DO; Dr. Patricia Alcantara MD; Dr. Yaakov Love MD; Dr. Josh Cline DO; Dr. Michelle Peters MD; Dr. Otto Jerry MD; Dr. Woody Brunson DO; Dr. Rios Downey DO; Dr. Tal Ashraf MD~ Signed [facility] Work Phone: [phone]) 197-401210-24-2023 Progress note Author Eladio Lucas [facility] September 20, 2023 1:43pm Note Date/Time September 20, 2023 1 :43pm [facility] Medical Records Department [address] [place] [address] Progress Note - Hospitalist 09/20/23 1340 MR#: [id number] Acct: [id number] Name: JODIE CARDENAS Rep #:[id number] : 1940 83 From: Eladio ramirez MD PCP: Dr. Rios Downey DO Status:ADM IN Location: [place] [address] Subjective Subjective Doing well, no issues overnight. [...] DVT: Eliquis Charges/Coding Visit Charges Inpatient E&M: 56637 Subs Hosp L2 09/20/23 1343 <Electronically signed by Eladio Lucas MD> Cosigner Signature (if applicable): CC: ~ Signed [facility] Work Phone: 1(692) 912-530310-23-2023 Progress note Author Eladio Lucas [facility] September 19, 2023 1:41pm Note Date/Time September 19, 2023 1 :34pm [facility] Medical Records Department [address] [facility] [place] [address] Progress Note - Hospitalist 09/19/23 1320 MR#: [id number] Acct: [id number] Name: JODIE CARDENAS Rep #:[id number] : 1940 83 From: Eladio ramirez MD PCP: Dr. Rios Downey, DO Status:ADM IN Location: [place] [id number] Subjective Subjective Doing well, feels a bit [...] DVT: Eliquis Charges/Coding Visit Charges Inpatient E&M: 44363 Subs Hosp L2 09/19/23 1341 <Electronically signed by Eladio Lucas MD> Cosigner Signature (if applicable): CC: ~ Signed [facility] Work Phone: 1(488) 800-705510-22-2023 Progress note Author Aleksander Hilliard [facility] September 18, 2023 2:18pm Note Date/Time September 18, 2023 2 :18pm [facility] Medical Records Department [address] [place] [address] Progress Note - Hospitalist 09/18/23 1400 MR#: [id number] Acct: [id number] Name: HAMZAHRAFIJODIE Rothman Rep #:[id number] : 1940 83 From: Aleksander camargo DO PCP: Dr. Rios Downey, DO Status:ADM IN Location: [place] [id number]- [id number] Reason for Visit Reason for Visit: [...] for CVA rule out who presented to [facility] ED on 09/16/2023 with worsening shortness of [...] 35 minutes. Charges/Coding Visit Charges Inpatient E&M: 46096 Subs Hosp L2 09/18/23 1418 <Electronically signed by Aleksander Hilliard DO> Cosigner Signature (if applicable): CC: ~ Signed [facility] Work Phone: [phone]) 735-702310-21-2023 Progress note Author Aleksander Hilliard [facility] September 17, 2023 3:42pm Note Date/Time September 17, 2023 3 :38pm [facility] Medical Records Department [address] [place] [address] Progress Note - Hospitalist 09/17/23 1527 MR#: [id number] Acct: [id number] Name: JODIE CARDENAS Rep #:[id number] : 1940 83 From: Aleksander camargo DO PCP: Dr. Rios Downey, Status:ADM IN Location: [place] [address]- 1 Reason for Visit Reason for Visit: [...] % (Auto) 68.1, Lymph % (Auto) 19.0, Spalding % (Auto) 8.1, Eos % (Auto) 3.7, [...] 70.5 H, Lymph % (Auto) 16.9 L, Spalding % (Auto) 7.1, Eos % (Auto) 4.6, [...] 17:04 EDT Reading Location ID and State: [address] [place] [address] Tel , Service support , Physical Exam Const alert and oriented [...] for CVA rule out who presented to [facility] ED on 09/16/2023 with worsening shortness of [...] 35 minutes. Charges/Coding Visit Charges Inpatient E&M: 25402 Subs Hosp L2 09/17/23 1542 <Electronically signed by Aleksander Hilliard DO> Cosigner Signature (if applicable): CC: ~ Signed [facility] Work Phone: 1([phone]) 754-160010-20-2023 Discharge summary Author Cesar Medina [facility] September 16, 2023 6:42pm Note Date/Time September 16, 2023 6 :42pm [facility] Medical Records Department [address] [place] [address] Emergency Department Summary 09/16/23 MR#: [id number] Acct: [id number] Name: JODIE CARDENAS Rep #:[id number] : 1940 83 From: Cesar Medina DO PCP: Dr. Rios Downey DO Status:REG ER Location: ED HPI History of Present Illness Chief Complaint: Shortness of Breath Narrative Narrative: 83-year-old male with history of CHF, A-fib, CKD, CAD, diabetes, hypertension, sleep apnea presenting with hypoxic episode. Patient was recently inpatient at [facility] for what sounds like about a month. He was discharged to a long-term facility where he just left today. His [...] state that when he was at the [facility] he was huffing and puffing when he was walking but not like today. He states that they change his Lasix to torsemide while he was at the long-term facility he is not sure why they did this. They also put him on potassium. [facility] Medical History Anemia Atherosclerosis of coronary artery bypass graft without angina pectoris Atherosclerosis of coronary artery of resighini heart without angina pectoris Chronic combined systolic [...] unit/mL injection solution 12 unit subcut BID [id number]/27/16 [History Last Taken 07/02/23] cholecalciferol (vitamin D3) [...] % (Auto) 68.1 Lymph % (Auto) 19.0 Spalding % (Auto) 8.1 Eos % (Auto) 3.7 [...] 17:04 EDT Reading Location ID and State: [facility] / [place] Tel , Service support , Discharge Plan [...] Primary Care Provider: Rios Downey Referrals: Rios Downey, DO [Primary Care Provider] - What to do if you have Problems For any increased pain, shortness of breath, bleeding, nausea or vomiting, chestpain, or any unexpected problems, contact your Primary Care Provider. Call [facility] ([phone]) or report to the closest Emergency Room. Call 911 if necessary. 09/16/231841 <Electronically signed by Cesar Medina DO> Cosigner Signature (if applicable): CC: Dr. Rios Downey, ~ Signed [facility] Work Phone: 1(494) 686-950210-20-2023 History and physical note Author Patricia Alcantara [facility] September 16, 2023 6:41pm Note Date/Time September 16, 2023 6 :17pm [facility] Medical Records Department [address] [facility] [place] [address] H&P Exam - Hospitalist 09/16/23 1809 MR#: [id number] Acct: [id number] Name: JODIE CARDENAS Rep #:[id number] : 1940 83 From: Patricia Alcantara MD [...] for dementia who now re-presents to the [facility] ED on 09/16/23 with history of discharge from SNF today specifically [facility] with reportedly transition to home and at [...] atrial fibrillation without acute evidence of ischemia. [facility] Medical History Anemia Atherosclerosis of coronary artery bypass graft without angina pectoris Atherosclerosis of coronary artery of resighini heart without angina pectoris Chronic combined systolic [...] unit/mL injection solution 12 unit subcut BID [id number]/27/16 [History Last Taken 07/02/23] cholecalciferol (vitamin D3) [...] % (Auto) 68.1, Lymph % (Auto) 19.0, Spalding % (Auto) 8.1, Eos % (Auto) 3.7, [...] for dementia who now re-presents to the [facility] ED on 09/16/23 with history of discharge from SNF today specifically [facility] with reportedly transition to home and at [...] not repeat. Will place neck Dionna wraps. PT/OT/pillowcase turner consultation for discharge planning. To be cautious [...] intubation status. Charges/Coding Visit Charges Inpatient E&M: 58366 Init Hosp L3 09/16/23 184 <Electronically signed by Patricia Alcantara MD> Cosigner Signature (if applicable): CC: Dr. Patricia Alcantara MD; Dr. Rios Downey, ~ Signed [facility] Work Phone: [phone]) 116-128510-20-2023 History and physical note Author [facility] September 16, 2023 6:41pm Note Date/Time September 16, 2023 6 :17pm [facility] Medical Records Department [address] [place] [address] H&P Exam - Hospitalist 09/16/23 1809 MR#: [id number] Acct: [id number] Name: JODIE CARDENAS Rep #:[id number] : 1940 83 From: Patricia Alcantara MD [...] for dementia who now re-presents to the [facility] ED on 09/16/23 with history of discharge from SNF today specifically [facility] with reportedly transition to home and at [...] atrial fibrillation without acute evidence of ischemia. [facility] Medical History Anemia Atherosclerosis of coronary artery bypass graft without angina pectoris Atherosclerosis of coronary artery of resighini heart without angina pectoris Chronic combined systolic [...] unit/mL injection solution 12 unit subcut BID [id number]/27/16 [History Last Taken 07/02/23] cholecalciferol (vitamin D3) [...] % (Auto) 68.1, Lymph % (Auto) 19.0, Spalding % (Auto) 8.1, Eos % (Auto) 3.7, [...] for dementia who now re-presents to the [facility] ED on 09/16/23 with history of discharge from SNF today specifically [facility] with reportedly transition to home and at [...] not repeat. Will place neck Dionna wraps. PT/OT/pillowcase turner consultation for discharge planning. To be cautious [...] intubation status. Charges/Coding Visit Charges Inpatient E&M: 47853 Init Hosp L3 09/16/23 184 <Electronically signed by Patricia Alcantara MD> Cosigner Signature (if applicable): CC: Dr. Patricia Alcantara MD; Dr. Rios Downey DO~ Signed [facility] Work Phone: 1(684) 103-863910-20-2023 Discharge summary Author Cesar Medina [facility] September 16, 2023 6:42pm Note Date/Time September 16, 2023 6 :42pm [facility] Medical Records Department [address] [place] [address] Emergency Department Summary 09/16/23 MR#: [id number] Acct: [id number] Name: JODIE CARDENAS Rep #:[id number] : 1940 83 From: Cesar Medina DO PCP: Dr. Rios Downey DO Status:REG ER Location: ED HPI History of Present Illness Chief Complaint: Shortness of Breath Narrative Narrative: 83-year-old male with history of CHF, A-fib, CKD, CAD, diabetes, hypertension, sleep apnea presenting with hypoxic episode. Patient was recently inpatient at [facility] for what sounds like about a month. He was discharged to a long-term facility where he just left today. His [...] state that when he was at the [facility] he was huffing and puffing when he was walking but not like today. He states that they change his Lasix to torsemide while he was at the long-term facility he is not sure why they did this. They also put him on potassium. [facility] Medical History Anemia Atherosclerosis of coronary artery bypass graft without angina pectoris Atherosclerosis of coronary artery of resighini heart without angina pectoris Chronic combined systolic [...] unit/mL injection solution 12 unit subcut BID [id number]/27/16 [History Last Taken 07/02/23] cholecalciferol (vitamin D3) 25 mcg (1,000 unit) tablet 25 mcg PO DAILY SUPPLEMENT 10/26/16 [History Last Taken 08/18/23] sertraline 25 mg tablet 25 mg PO DAILY DEPRESSION 01/10/18 [History Last Taken 08/18/23] insulin NPH isoph U-100 human 100 unit/mL subcutaneous suspension 20 unit subcutBID DIABETES 04/11/18 [History Last Taken 07/03/23] famotidine 20 mg [...] % (Auto) 68.1 Lymph % (Auto) 19.0 Spalding % (Auto) 8.1 Eos % (Auto) 3.7 [...] 17:04 EDT Reading Location ID and State: [address] [place] [address] Tel , Service support , Discharge Plan [...] your Primary Care Provider. Call [facility] ([phone]) or report to the closest Emergency Room. Call 911 if necessary. 09/16/231841 <Electronically signed by Cesar Medina DO> Cosigner Signature (if applicable): CC: Dr. Rios Downey DO ~ Signed [facility] Work Phone: [phone]) 130-960209-25-2023 Discharge summary Author Mikey Ortizbria [facility] August 22, 2023 12:17pm Note Date/Time August 22, 2023 12:17pm [facility] Medical Records Department [address] [place] [address] Discharge Summary 08/22/23 1216 MR#: [id number] Acct: [id number] Name: HAMZAHJODIE MCKEE Lorna Rep #:[id number] : 1940 83 From: Mikey Macias DO PCP: Dr. Rios Downey DO Status:ADM IN Location: [facility] [id number]- 1 Providers Date of Admission: 08/18/23 Primary Care [...] malaise Plan: Patient to go back to [facility]. Plan Chronic conditions * Seizure disorder?Patient is [...] unit/mL injection solution 25 unit subcut BID SVFLSZYO37/27/16 cholecalciferol (vitamin D3) 25 mcg (1,000 unit) [...] 75.8 H, Lymph % (Auto) 16.5 L, Spalding % (Auto) 5.6, Eos % (Auto) 1.4, [...] in before D/C Order can be placed): [facility] Charges/Coding Visit Charges Inpatient E&M: 76687 Disch Hosp 08/22/23 1217 <Electronically signed by Mikey Macias DO> Cosigner Signature (if applicable): CC: Dr. Mikey Macias DO; Dr. Rios Downey DO~ Signed [facility] Work Phone: [phone]) 331-289309-25-2023 Discharge summary Author Mikey Macias [facility] August 22, 2023 12:16pm Note Date/Time August 22, 2023 12:12pm [facility] Medical Records Department [address] [place] [address] Transfer to [facility] MR#: [id number] Acct: [id number] Name: JODIE CARDENAS Rep #:[id number] : 1940 83 From: Mikey Macias DO PCP: Dr. Rios Downey DO Status:ADM IN Certification of patient admission REQUIRED AT TIME OF ADMISSION. I CERTIFY THAT POST-HOSPITAL F SERVICES ARE REQUIRED TO BE GIVEN ON AN IN-PATIENT BASIS BECAUSE OF THE ABOVE NAMED PATIENT'S NEED FOR CORRECTION CARE ON A CONTINUING BASIS FOR THE CONDITION(S) FOR WHICH HE/SHE WAS RECEIVING IN-PATIENT HOSPITAL SERVICES PRIOR TO HIS/HER TRANSFER TO THE [facility]. 08/22/23 1216<Electronically signed by Mikey Macias DO> Diet Diet Order/Speech Therapy: 08/19/23 13:25 ADA [Diet: Cardiac: Calorie-Controlled] Food consistency:: Pureed Liquid Consistency:: [place]/Mildly Thick Is pt able to select menu?: [...] malaise Plan: Patient to go back to [facility]. Plan Chronic conditions * Seizure disorder?Patient is [...] Provider: Mikey Macias Primary Care Provider: Rios Donwey Consulting Providers: Patricia Alcantara; James Camarillo Discharge [...] in before D/C Order can be placed): [facility] 08/22/23 1216 <Electronically signed by Mikey Macias DO> Cosigner Signature (if applicable): CC: Dr. Patricia Alcantara MD; Dr. James Camarillo MD; Dr. Rios Downey DO ~ [facility] Work Phone: [phone]) 384-286509-25-2023 Progress note Author Mikey Macias [facility] August 22, 2023 12:11pm Note Date/Time August 22, 2023 10:00am [facility] Medical Records Department [address] [place] [address] Progress Note - Hospitalist 08/22/23 0956 MR#: [id number] Acct: [id number] Name: JODIE CARDENAS Rep #:[id number] : 1940 83 From: Mikey Macias DO PCP: Dr. Rios Downey, DO Status:ADM IN Location: [place] [address] Reason for Visit Reason for Visit: Diagnoses [...] 75.8 H, Lymph % (Auto) 16.5 L, Spalding % (Auto) 5.6, Eos % (Auto) 1.4, [...] Debility: PLAN: Patient to go back to [facility]. PLAN: Plan Chronic conditions * Seizure disorder?Patient [...] Cosigner Signature (if applicable): CC: ~ Signed [facility] Work Phone: 1(355) 562-710509-24-2023 Progress note Author James Camarillo [facility] August 21, 2023 11:49am Note Date/Time August 21, 2023 8:45am [facility] Medical Records Department [address] [place] [address] Progress Note - Hospitalist 08/21/23 0844 MR#: [id number] Acct: [id number] Name: JODIE CARDENAS Rep #:[id number] : 1940 83 From: James Camarillo MD PCP: Dr. Rios Downey, Status:ADM IN Location: [place] [address] Reason for Visit Reason for Visit: Diagnoses Disorientation, unspecified (08/18/23) Subjective Subjective Patient seen remains stable with no change in condition plan is for patient to be transferred to long-term facility pending insurance approval/precertification Objective Data Objective [...] Intake and Output for Last 24 Hours 0908/20/23 08/21/23 23:59 23:59 23:59 Intake Total 2723.63 [...] 74.3 H, Lymph % (Auto) 17.4 L, Spalding % (Auto) 6.0, Eos % (Auto) 1.4, [...] - Requested for PT OT eval and nephrology social worker to assist with discharge planning ? 08/20/2023; awaiting insurance approval prior to transfer to long-term facility ? 08/21/2023; Patient seen remains stable with no change in condition plan is forpatient to be transferred to long-term facility pending insurance approval/precertification 3. Seizure disorder [...] documentation, 35minutes Charges/Coding Visit Charges Inpatient E&M: 96167 Subs Hosp L2 08/21/23 1149 <Electronically signed by James Camarillo MD> Cosigner Signature (if applicable): CC: ~ Signed [facility] Work Phone: [phone]) [phone] Progress note Author James Camarillo [facility] August 20, 2023 11:15am Note Date/Time August 20, 2023 8:35am [facility] Medical Records Department [address] [place] [address] Progress Note - Hospitalist 08/20/23 0835 MR#: [id number] Acct: [id number] Name: JODIE CARDENAS Rep #:[id number] : 1940 83 From: James Camarillo MD PCP: Dr. Rios Downey, DO Status:ADM IN Location: [place] [address] Reason for Visit Reason for Visit: Diagnoses Disorientation, unspecified (08/18/23) Subjective Subjective Patient seen appears to be back to baseline [facility] Objective Data Objective [...] - Requested for PT OT eval and nephrology social worker to assist with discharge planning ? 08/20/2023; awaiting insurance approval prior to transfer to long-term facility 3. Seizure disorder ?Patient is on [...] documentation, 35minutes Charges/Coding Visit Charges Inpatient E&M: 82680 Subs Hosp L2 08/20/23 1115 <Electronically signed by James Camarillo MD> Cosigner Signature (if applicable): CC: ~ Signed [facility] Work Phone: 1(347) 912-397409-22-2023 Progress note Author James Camarillo [facility] August 19, 2023 12:57pm Note Date/Time August 19, 2023 9:42am [facility] Medical Records Department [address] [place] [address] Progress Note - Hospitalist 08/19/23940 MR#: [id number] Acct: [id number] Name: JODIE CARDENAS Rep #:[id number] : 1940 83 From: James Camarillo MD PCP: Dr. Rios Downey, DO Status:ADM IN Location: [place] [address] Reason for Visit Reason for Visit: Diagnoses [...] 73.4 H, Lymph % (Auto) 17.6 L, Spalding % (Auto) 6.4, Eos % (Auto) 1.8, [...] % (Auto) 67.7, Lymph % (Auto) 22.6, Spalding % (Auto) 6.6, Eos % (Auto) 2.4, [...] - Requested for PT OT eval and nephrology social worker to assist with discharge planning 3. Seizure [...] documentation, 55minutes Charges/Coding Visit Charges Inpatient E&M: 89835 Subs Hosp L3 08/19/23 1257 <Electronically signed by James Camarillo MD> Cosigner Signature (if applicable): CC: ~ Signed [facility] Work Phone: 1([phone]) 232-406009-21-2023 History and physical note Author Patricia Alcantara [facility] August 18, 2023 9:21pm Note Date/Time August 18, 2023 2:36pm [facility] Medical Records Department [address] [place] [address] H&P Exam - Hospitalist 08/18/23 1435 MR#: [id number] Acct: [id number] Name: JODIE CARDENAS Rep #:[id number] : 1940 83 From: Patricia Alcantara MD PCP: Dr. Rios Downey, DO Status:ADM IN Location: [place] [id number]- 1 HPI - General General Date of [...] TCU following who now represents to the [facility] ED on 08/18/23 with history of [...] the ED patient administered maintenance IV fluids. [facility] Medical History Acute exacerbation of CHF (congestive heart failure) Acute on chronic diastolic (congestive) heart failure Acute respiratory failure with hypoxia Anemia Atherosclerosis of coronary artery bypass graft without angina pectoris Atherosclerosis of coronary artery of resighini heart without angina pectoris Atrial fibrillation with [...] unit/mL injection solution 25 unit subcut BID [id number]/27/16 [History Last Taken 07/02/23] cholecalciferol (vitamin D3) [...] unable to have patient perform finger-nose or [id number]-ht-evzm, equivocal Babinski, patient is definitely having interactive [...] 73.4 H, Lymph % (Auto) 17.6 L, Spalding % (Auto) 6.4, Eos % (Auto) 1.8, [...] TCU following who now represents to the [facility] ED on 08/18/23 with history of [...] concern for oral intake will transition to [place] ASA, holding oral regimen. Maintain on fall [...] intubation status. Charges/Coding Visit Charges Inpatient E&M: 39639 Init Hosp L3 08/18/232120 <Electronically signed by Patricia Alcantara MD> Cosigner Signature (if applicable): CC: Dr. Patricia Alcantara MD; Dr. Rios Downey, DO~ Signed [facility] Work Phone: 1(885) 596-860409-21-2023 Discharge summary Author Farhan Aviless [facility] August 18, 2023 6:32pm Note Date/Time August 18, 2023 11:20am [facility] Medical Records Department [address] [place] [address] Emergency Department Summary 08/18/23 MR#: [id number] Acct: [id number] Name: JODIE CARDENSA Rep #:[id number] : 1940 83 From: Farhan Encinas PCP: Dr. Rios Downey, DO Status:ADM IN Location: [address] History of Present Illness Chief Complaint: Stroke Alert [facility] Medical History (Updated 08/18/23 @ 17:56 by Audra Wilhelm) Acute exacerbation of CHF (congestive heart failure) Acute on chronic diastolic (congestive) heart failure Acute respiratory failure with hypoxia Anemia Atherosclerosis of coronary artery bypass graft without angina pectoris Atherosclerosis of coronary artery of resighini heart without angina pectoris Atrial fibrillation with [...] unit/mL injection solution 25 unit subcut BID PKKYWWES49/27/16 [History Last Taken 07/02/23] cholecalciferol (vitamin D3) [...] Oxygen Delivery Method Oxygen Flow Rate (L/min) MDM MDM MDM Narrative Medical decision making narrative: HISTORY OF PRESENT ILLNESS: 83-year-old male here with concern for left-sided facial droop. Patient baseline is alert and oriented to self only does not provide reliable history. Per nurse from transitional care center patient was last normal at 930 he [...] patient's nurse Consults: Stroke neurology, internal medicine [facility] Narrative: Patient was initially hemodynamically stable, afebrile [...] 73.4 H Lymph % (Auto) 17.6 L Spalding % (Auto) 6.4 Eos % (Auto) 1.8 [...] Mahendra Canada MD at 12:55 EDT , Discharge Plan Disposition Disposition: Acute Care Hospital [facility] Discharge Date/Time: 08/18/23 17:38 What to do if you have Problems For any increased pain, shortness of breath, bleeding, nausea or vomiting, chest pain, or any unexpected problems, contact your Primary Care Provider. Call [facility] ([phone]) or report to the closest Emergency Room. Call 911 if necessary. 08/18/231831 <Electronically signed by Farhan Bonds DO> Cosigner Signature (if applicable): CC: Dr. Rios Downey DO ~ Signed [facility] Work Phone: 1(431) 127-732409-16-2023 Progress note Author Carrie Bonner [facility] [place] August 13, 2023 10:00am Note Date/Time August 08, 2023 11:01am [facility] Medical Records Department [address] [place] [address] Progress Note - Nephrology 08/08/23 1059 MR#: [id number] Acct: [id number] Name: JODIE CARDENAS Rep #:[id number] : 1940 83 From: Saumya andrews VE TEACHER-C PCP: Dr. Rios Downey, DO Status:ADM IN Location: [place] [address] Subjective Subjective Resting in bed. No complaints. [...] Freq: Status: Active Protocol: Document 07/27/23 15:44 BRANDEN (Rec: 07/27/23 15:44 BRANDEN [id number]) Nutrition Malnutrition Evidence of Malnutrition Exists Yes [...] dysphagia Signs/Symptoms as evidenced [facility] consistency Status Active Problem Recommendation Dietitian Recommendations/Changes Will continue Cardiac, 2000 jade Controlled - consistency per JOINT YARNER Will monitor for changes in res nutritional [...] will need hospital follow-up made with his patient care, Dr. Guille wyatt 1-2 months. 08/08/23 1101 <Electronically signed by Saumya SOSA> Cosigner Signature (if applicable): 08/13/23 1000 <Electronically signed by Carrie Bonner MD> CC: ~ Signed [facility] Work Phone: 1([phone]) 747-958309-05-2023 Progress note Author Jeremy Magallanes [facility] August 02, 2023 8:05am Note Date/Time August 02, 2023 8:05am [facility] Medical Records Department [address] [place] [address] Progress Note - [facility] 08/02/23 0759 MR#: [id number] Acct: [id number] Name: JODIE CARDENAS Rep #:[id number] : 1940 83 From: Jeremy Magallanes MD PCP: Dr. Rios Downey, DO Status:ADM IN Location: [place] [address] Subjective Subjective Resident seen, examined. 1 week [...] Document 07/27/23 15:44 SLA (Rec: 07/27/23 15:44 [facility] [id number]) Nutrition Malnutrition Evidence of Malnutrition Exists Yes [...] Cardiac, 2000 jade Controlled - consistency per JOINT YARNER Will monitor for changes in res nutritional [...] 25mg daily, Zyprexa 2.5mg qhs, stable chronic alf use, GDR not recommended. * Vitamin D [...] Cosigner Signature (if applicable): CC: ~ Signed [facility] Work Phone: 1([phone]) 668-627708-28-2023 Progress note Author Clay Berry [facility] July 25, 2023 11:36am Note Date/Time July 25, 2023 10 :25am [facility] Medical Records Department [address] [place] [address] Progress Note - Nephrology 07/25/23 1021 MR#: [id number] Acct: [id number] Name: JODIE CARDENAS Rep #:[id number] : 1940 83 From: Saumya andrews VE TEACHER-C PCP: Dr. Rios Downey, DO Status:ADM IN Location: [place] [address] Subjective Subjective Following for CKD Sitting in [...] (Auto) 69.0, Lymph % (Auto) 18.2 L, Spalding % (Auto) 7.8, Eos % (Auto) 4.1, [...] will need hospital follow-up made with his patient care, Dr. Guille wyatt 1-2 months. 07/25/23 1025 <Electronically signed by Saumya SOSA> Cosigner Signature (if applicable): 07/25/23 1136 <Electronically signed by Clay Berry MD> CC: ~ Signed [facility] Work Phone: [phone]) 420-753608-26-2023 Consult note Author Carrie Bonner [facility] July 23, 2023 10:57am Note Date/Time July 11, 2023 11 :26am [facility] Medical Records Department [address] [place] [address] Consultation - Nephrology 07/11/23 1116 MR#: [id number] Acct: [id number] Name: JODIE CARDENAS Rep #:[id number] : 1940 83 From: Saumya SOSA PCP: Dr. Rios Downey, DO Status:ADM IN Location: [place] [address] Assessment & Plan Assessment/Plan (1) CKD (chronic [...] cannot recall when last seen by his patient care. In reviewing past serum creatinine trends, baseline creatinine ranging around 2.4 to 2.7 mg/dL. Patient denies any recent nausea, vomiting or diarrhea. Reports has good appetite. No recent overnight events. [facility] Medical History Acute exacerbation of CHF (congestive heart failure) Acute on chronic diastolic (congestive) heart failure Acute respiratory failure with hypoxia Anemia Atherosclerosis of coronary artery bypass graft without angina pectoris Atherosclerosis of coronary artery of resighini heart without angina pectoris Atrial fibrillation with [...] unit/mL injection solution 25 unit subcut BID [id number]/27/16 [History Last Taken 07/02/23] cholecalciferol (vitamin D3) [...] 76.7 H, Lymph % (Auto) 9.8 L, Spalding % (Auto) 9.5, Eos % (Auto) 3.2, [...] Berry MD; Dr. Rios Downey, DO~ Signed [facility] Work Phone: 1([phone]) 608-938308-26-2023 Progress note Author [facility] July 23, 2023 10:57am Note Date/Time July 14, 2023 10 :34am [facility] Medical Records Department [address] [place] [address] Progress Note - Nephrology 07/14/23 1029 MR#: [id number] Acct: [id number] Name: JODIE CARDENAS Rep #:[id number] : 1940 83 From: Saumya SOSA PCP: Dr. Rios Downey, DO Status:ADM IN Location: [facility] Subjective Subjective Following for CKD Patient resting [...] by Carrie Bonner MD> CC: ~ Signed [facility] Work Phone: [phone]) 161-868008-26-2023 Progress note Author [facility] July 23, 2023 10:56am Note Date/Time July 19, 2023 2: 40pm [facility] Medical Records Department [address] [place] [address] Progress Note - Nephrology 07/19/23 1437 MR#: [id number] Acct: [id number] Name: JODIE CARDENAS Rep #:[id number] : 1940 83 From: Saumya SOSA PCP: Dr. Rios Downey, DO Status:ADM IN Location: [place] [address] Subjective Subjective No overnight events. Sitting in [...] by Carrie Bonner MD> CC: ~ Signed [facility] Work Phone: [phone]) 276-287508-23-2023 Procedure [facility] 07-20-2023 History and physical note Author Jeremy Magallanes [facility] July 20, 2023 7:53am Note Date/Time July 03, 2023 8:3 0pm [facility] Medical Records Department [address] [place] [address] History & Physical Exam 07/03/232021 MR#: [id number] Acct: [id number] Name: JODIE CARDENAS Rep #:[id number] : 1940 83 From: Jeremy Magallanes MD PCP: Dr. Rios Downey, DO Status:ADM IN Location: [facility] HPI - General General Date of Admission: 07/03/23 Date of Service: 07/04/23 Chief Complaint: Here for rehabilitation. HPI Narrative 06/29/2023 JODIE CARDENAS, is a 83 Male who presents to [facility] Emergency Department with stroke alert. 06/29/2023 EKG atrial fibrillation with slow ventricular response, left bundle branch block. Sometimes forgetful sleeping in chair, confused. Acting out of character, intermittent confusion, slurring words. Expressive aphasia, dysarthria, confusion. Symptoms improving, NIH 1, not TPA candidate. 06/29/2023 Admit to [facility]. PT/OT/ST, aspirin, atorvastatin for rule out [...] strengthening, prior to discharge home with granddaughter. [facility] Medical History Acute exacerbation of CHF (congestive heart failure) Acute on chronic diastolic (congestive) heart failure Acute respiratory failure with hypoxia Anemia Atherosclerosis of coronary artery bypass graft without angina pectoris Atherosclerosis of coronary artery of resighini heart without angina pectoris Atrial fibrillation with [...] unit/mL injection solution 25 unit subcut BID [id number]/27/16 [History Last Taken 07/02/23] cholecalciferol (vitamin D3) [...] 25mg daily, Zyprexa 2.5mg qhs, stable chronic alf use, GDR not recommended. * Hypokalemia - KCL 20meq daily. * Vitamin D deficiency - D3 25mcg daily. * Acute anemia - Hemoglobin dropped from 11.4 to 9.2, monitor, check stool for blood, resident is on Eliquis. 07/04/23 0738 <Electronically signed by Jeremy Magallanes MD> Cosigner Signature (if applicable): CC: Dr. Rios Downey, DO; Dr. Jeremy Magallanes MD~ Signed ADDENDUM by Dr. Jeremy Magallanes MD on 07/12/23 at 0902 Addendum I spoke with resident granddaughter Maria Luisa Morris by phone. I discussed how resident is [...] DO; Dr. Jeremy Magallanes MD ~* Signed ADDENDUM by Dr. Jeremy Magallanes MD on 07/20/23 at 0753 Addendum 07/19/2023 Chest X-ray shows aspiration pneumonia, Rx Clindamycin 300mg tid x 7 days. Insomnia - Rx Doxepin 10mg po qhs prn. 07/20/23752<Electronically signed by Jeremy Magallanes MD> Cosigner Signature (if applicable): cc: Dr. Rios Downey DO; Dr. Jeremy Magallanes MD ~* Signed [facility] Work Phone: 1(204) [phone] Progress note Author [facility] July 05, 2023 11:19am Note Date/Time July 05, 2023 11: 03am [facility] Medical Records Department [address] [place] [address] Progress Note - Pharmacy 07/05/23 1048 MR#: [id number] Acct: [id number] Name: JODIE CARDENAS Rep #:[id number] : 1940 83 From: Ingrid Rizvi PCP: Dr. Rios Downey DO Status:ADM IN Location: [facility] Documented by User: Ingrid Rizvi 07/05/23 11:15 [...] Dose Admin Acetaminophen 1,000 mg 07/03/23 20:38 08/07/23 19:48 Acetaminophen 500 Mg Tablet PO 1,000 [...] by Jeremy Magallanes MD> CC: ~ Signed [facility] Work Phone: [phone]) 378-694508-06-2023 Discharge summary Author Woody Brunson [facility] July 03, 2023 11:01am Note Date/Time July 03, 2023 10: 51am [facility] Medical Records Department [address] [place] [address] Transfer to [facility] MR#: [id number] Acct: [id number] Name: JODIE CARDENAS Rep #:[id number] : 1940 83 From: Woody Brunson DO PCP: Dr. Rios Downey, Status:ADM IN Certification of patient admission REQUIRED AT TIME OF ADMISSION. I CERTIFY THAT POST-HOSPITAL F SERVICES ARE REQUIRED TO BE GIVEN ON AN IN-PATIENT BASIS BECAUSE OF THE ABOVE NAMED PATIENT'S NEED FOR CORRECTION CARE ON A CONTINUING BASIS FOR THE CONDITION(S) FOR WHICH HE/SHE WAS RECEIVING IN-PATIENT HOSPITAL SERVICES PRIOR TO HIS/HER TRANSFER TO THE [facility]. 07/03/23 1101<Electronically signed by Woody Brunson DO> [...] Continue diet as ordered - consistency per JOINT YARNER Will order 4 oz glucerna shake tid w/ medpass d/t poor po intake since in hospital Continue to monitor for changes in pt nutritional status and make additional rec as indicated Speech Linguistic Eval Summary: Patient laying in bed, difficult to arouse. Required constant verbal and tactile cueing to participate in conversation w/ JOINT YARNER. Frequently closing eyes, lethargic. Granddaughter present for cognitive-linguistic evaluation. Granddaughter reports patient does have some cognitive impairment as baseline, he does not typically know their address, [place], etc. Granddaughter attributes this to age related decline however, JOINT YARNER suspects dementia at baseline. Granddaughter does live w/ patient. Orientation - Oriented to name, month and date of birthday only. Disoriented to year of , current month, current year and place despite choice array of 2. Patient reporting it is Jul 1964 and he is at [facility]. Unable to recall any personal details. Verbal expression - Very difficult to understand, slurred speech (50% intelligible w/ unknown context). Granddaughter reports worsening dysarthria compared to baseline. Patient does have upper/lower dentures that he sometimes uses when he eats. Auditory comprehension - Difficult to understand task, unable to determine if d/t lethargy or exacerbation of cognitive impairment. JOINT YARNER discontinued cognitive-linguistic assessment d/t lethargy, will continue [...] in before D/C Order can be placed): [facility] 07/03/23 1101 <Electronically signed by Woody Brunson DO> Cosigner Signature (if applicable): CC: Dr. Rigoberto Ashley MD; Dr. Rios Downey DO ~ [facility] Work Phone: [phone] 154-421608-05-2023 Progress note Author Woody Bustosessentia healthzulema [facility] July 02, 2023 9:59am Note Date/Time July 02, 2023 9:5 6am [facility] Medical Records Department [address] [place] [address] Progress Note - Hospitalist 07/02/23 0954 MR#: [id number] Acct: [id number] Name: JODIE CARDENAS Rep #:[id number] : 1940 83 From: Woody Brunson DO PCP: Dr. Rios Downey DO Status:ADM IN Location: [place] [address] Reason for Visit Reason for Visit: Diagnoses [...] he will need short-term placement in the long-term facility for rehab services. #2 type 2 [...] 35 minutes Charges/Coding Visit Charges Inpatient E&M: 26863 Subs Hosp L2 07/02/23 0959 <Electronically signed by Woody Brunson DO> Cosigner Signature (if applicable): CC: ~ Signed [facility] Work Phone: 1([phone]) 826-673508-04-2023 Progress note Author Woody Bustosessentia healthzulema [facility] July 01, 2023 5:13pm Note Date/Time July 01, 2023 4:5 8pm [facility] Medical Records Department [address] [place] [address] Progress Note - Hospitalist 07/01/23 1655 MR#: [id number] Acct: [id number] Name: JODIE CARDENAS Rep #:[id number] : 1940 83 From: Woody Brunson DO PCP: Dr. Rios Downey, DO Status:ADM IN Location: [facility] TTR133- 1 Reason for Visit Reason for Visit: [...] Total 120 / 120 1190 / 1190 / Output Total 100 / 100 0 / 0 Balance 1190 / 1190 / Lab / Micro Data 07/01/23 05:14 07/01/23 [...] 76.6 H, Lymph % (Auto) 14.4 L, Spalding % (Auto) 7.7, Eos % (Auto) 0.6, [...] most likely need temporary placement in a long-term facility. #2 type 2 diabetes-blood sugar will [...] 35 minutes Charges/Coding Visit Charges Inpatient E&M: 28878 Subs Hosp L2 07/01/23 1713 <Electronically signed by Woody Brunson DO> Cosigner Signature (if applicable): CC: ~ Signed [facility] Work Phone: 1(951) [phone] Progress note Author Woody Brunson [facility] June 30, 2023 7:55pm Note Date/Time June 30, 2023 6:4 1pm [facility] Medical Records Department [address] [place] [address] Progress Note - Hospitalist 06/30/23 1834 MR#: [id number] Acct: [id number] Name: JODIE CARDENAS Rep #:[id number] : 1940 83 From: Woody Brunson DO PCP: Dr. Rios Downey, Status:ADM IN Location: [place] [id number]- 1 Reason for Visit Reason for Visit: [...] 72.4 H, Lymph % (Auto) 18.2 L, Spalding % (Auto) 7.1, Eos % (Auto) 1.3, [...] L, BUN/Creatinine Ratio 19.3, Glucose 121 H, EycqqziqjcY9m 5.6, Calcium 9.4, Triglycerides 98, Cholesterol 75, [...] 35 minutes Charges/Coding Visit Charges Inpatient E&M: 18945 Subs Hosp L2 06/30/231954 <Electronically signed by Woody Brunson DO> Cosigner Signature (if applicable): CC: ~ Signed [facility] Work Phone: 1(521) [phone] Discharge summary Author Angélica Palomo [facility] June 29, 2023 3:48pm Note Date/Time June 29, 2023 2:3 2pm [facility] Medical Records Department [address] [place] [address] Emergency Department Summary 06/29/23 MR#: [id number] Acct: [id number] Name: JODIE CARDENAS Rep #:[id number] : 1940 83 From: Angélica Encinas PCP: Dr. Riso Downey, DO Status:ADM GUZMAN Location: [address] History of Present Illness Chief Complaint: [...] Stroke alert was called in the field. [facility] Medical History Acute exacerbation of CHF (congestive heart failure) Acute on chronic diastolic (congestive) heart failure Acute respiratory failure with hypoxia Anemia Atherosclerosis of coronary artery bypass graft without angina pectoris Atherosclerosis of coronary artery of resighini heart without angina pectoris Atrial fibrillation with [...] unit/mL injection solution 25 unit subcut BID [id number]/27/16 [History Last Taken 01/29/20] cholecalciferol (vitamin D3) [...] % (Auto) 70.0 Lymph % (Auto) 21.1 Spalding % (Auto) 6.4 Eos % (Auto) 1.4 [...] ABG results: ABG 06/29/23 13:10 Specimen Type AEY VBG pH 7.46 H VBG pO2 64 [...] 11/06/2020, patient does not have any significant manager exchange Discussion w/another healthcare provider: Hospitalist and Hand Developer Discharge Plan Dx/Rx/DC Orders Clinical Impression: Essential (primary) hypertension, TIA (transient ischemic attack), Paroxysmal atrial fibrillation Disposition Disposition: Acute Care Hospital [facility] Discharge Date/Time: 06/29/23 14:54 What to do if you have Problems For any increased pain, shortness of breath, bleeding, nausea or vomiting, chest pain, or any unexpected problems, contact your Primary Care Provider. Call [facility] ([phone]) or report to the closest Emergency Room. Call 911 if necessary. 06/29/23 7872 <Electronically signed by Angélica Palomo DO> Cosigner Signature (if applicable): CC: Dr. Rios Downey, ~ Signed [facility] Work Phone: 1(494) [phone] History and physical note Author Rigoberto Ashley [facility] June 29, 2023 3:09pm Note Date/Time June 29, 2023 2:2 7pm [facility] Medical Records Department [address] [facility] [place] [address] H&P Exam - Hospitalist 06/29/23 1424 MR#: [id number] Acct: [id number] Name: JODIE CARDENAS Rep #:[id number] : 1940 83 From: Rigoberto Bustos PCP: Dr. Rios Downey DO Status:ADM GUZMAN Location: [place] [address] HPI - General General Date of Admission: [...] and oxygen and BiPAP and chronic A-fib [facility] Medical History Acute exacerbation of CHF (congestive heart failure) Acute on chronic diastolic (congestive) heart failure Acute respiratory failure with hypoxia Anemia Atherosclerosis of coronary artery bypass graft without angina pectoris Atherosclerosis of coronary artery of resighini heart without angina pectoris Atrial fibrillation with [...] unit/mL injection solution 25 unit subcut BID [id number]/27/16 [History Last Taken 01/29/20] cholecalciferol (vitamin D3) [...] % (Auto) 70.0, Lymph % (Auto) 21.1, Spalding % (Auto) 6.4, Eos % (Auto) 1.4, [...] 2022 patient was started on oxygen and [facility] nephrology saw the patient. Patient is on [...] on Eliquis. Charges/Coding Visit Charges Inpatient E&M: 97492 Init Hosp L3 Procedures Hospitalists Procedures: 69166 Advncd Care Plan 30 Min 06/29/23 1509 <Electronically signed by Rigoberto Ashley MD> Cosigner Signature (if applicable): CC: Dr. Rigoberto Ashley MD; Dr. Rios Downey DO~ Signed [facility] Work Phone: 1([phone]) 313-785906-17-2023 Note. 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 Hyperlipemia chronic Paroxysmal atrial fibrillation [facility] Work Phone: 1(721) 646-165603-29-2016 Evaluation note* Diagnosis Onset Date Resolution Status Obstructive sleep apnea chronometer repairer kirby Atherosclerosis of coronary artery of resighini heart without angina pectoris chronic Essential (primary) hypertension chronic H/O aortic valve replacement February 24, 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 Hyperlipemia chronic Paroxysmal atrial fibrillation [facility] Work Phone: 1(776) 162-526103-29-2016 Evaluation note* Diagnosis Onset Date Resolution Status Atherosclerosis of coronary artery of resighini heart without angina pectoris chronic Essential (primary) hypertension chronic H/O aortic valve replacement February 24, 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 Hyperlipemia chronic Paroxysmal atrial fibrillation [facility] Work Phone: Consult note Author Vladimir Bourgeois [facility] August 22, 2023 2:24pm Note Date/Time August 22, 2023 2:24pm [facility] Medical Records Department [address] [place] [address] Counseling Note - Pharmacy 08/22/23 1424 MR#: [id number] Acct: [id number] Name: JODIE CARDENAS Rep #:[id number] : 1940 83 From: Vladimir Bourgeois PCP: Dr. Rios Downey, DO Status:ADM IN Location: [place] [address] Pharmacy [place] [facility] Reconciliation Pharmacy Service has performed discharge [...] unit/mL injection solution 25 unit subcut BID [id number]/27/16 cholecalciferol (vitamin D3) 25 mcg (1,000 unit) [...] Laxative) 1 tab-cap PO BID 08/18/23 08/22/23 1424 <Electronically signed by Vladimir ferrera> Date _ Vladimir Bourgeois Cosigner Signature (if applicable): Date CC: ~ Signed [facility] Work Phone: Evaluation + Plan note Future Appointments Appointment Date:07/25/2024 04:00:00 PM Scheduled Provider:RIOS DOWNEY DO Location:[facility] Appointment Type: OV Future Scheduled Tests Laboratory* Prostate Specific Antigen 06/08/22 * Thyroid Stimulating Hormone 06/08/22 * Free T4 06/08/22 * Lipid Profile 06/08/22 * Hepatitis C Antibody IgG 06/08/22 * Microalbumin Level Urine 06/08/22 * Prothrombin Time - Panel 06/08/22 * Prothrombin Time - Panel 07/10/22 * Prothrombin Time - Panel 07/14/22 * Vitamin D Level 06/08/22 * Complete Metabolic Panel 06/08/22 [facility] evaluation noteNo assessment information available [facility] Work Phone: evaluation note* Diagnosis Onset Date Resolution Status Restrictive airway disease a cute Chronic renal failure, stage 3 (moderate) chronic Chronic respiratory failure with hypoxia chronic Obstructive sleep apnea [facility] Work Phone: Evaluation note* Diagnosis Onset Date Resolution Status Restrictive airway disease a cute Chronic renal failure, stage 3 (moderate) chronic Chronic respiratory failure with hypoxia chronic Obstructive sleep apnea [facility] Atherosclerosis of coronary artery of resighini heart without angina pectoris chronic Essential (primary) hypertension chronic H/O aortic valve replacement February 24, 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, 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 Hyperlipemia chronic Paroxysmal atrial fibrillation chronic [facility] Work Phone: Evaluation note* Diagnosis Onset Date Resolution Status Restrictive airway disease a cute Chronic respiratory failure with hypoxia chronic Obstructive sleep apnea [facility] Work Phone: Evaluation note* Diagnosis Onset Date Resolution Status Obstructive sleep apnea [facility] Work Phone: Evaluation note* Diagnosis Onset Date Resolution Status Encephalopathy acute TIA (transient ischemic attack) acute Essential (primary) hypertension chronic Paroxysmal atrial fibrillation [facility] Work Phone: Evaluation note* Diagnosis Onset [...] ml/min chronic Hypertension chronic Obstructive sleep apnea [facility] Encephalopathy resolved [facility] Work Phone: Evaluation note* Diagnosis Onset Date [...] ml/min chronic Hypertension chronic Obstructive sleep apnea chronometer repairer kirby Encephalopathy resolved Confusion acute Debility acute [facility] Work Phone: Evaluation note* Diagnosis Onset Date [...] ml/min chronic Hypertension chronic Obstructive sleep apnea chronometer repairer kirby Encephalopathy resolved Debility acute Acute exacerbation of CHF (congestive heart failure) [facility] Work Phone: Evaluation note* Diagnosis Onset [...] ml/min chronic Hypertension chronic Obstructive sleep apnea chronometer repairer kirby Encephalopathy resolved Debility acute Aortic stenosis acute Debility acute Acute exacerbation of CHF (congestive heart failure) chronic Chronic respiratory failure chronic CKD (chronic kidney disease) stage 4, 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 [facility] Work Phone: Evaluation note* Diagnosis Onset Date [...] ml/min chronic Hypertension chronic Obstructive sleep apnea chronometer repairer kirby Encephalopathy resolved Debility acute Aortic stenosis acute Debility acute Acute exacerbation of CHF (congestive heart failure) chronic Chronic respiratory failure chronic CKD (chronic kidney disease) stage 4, 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 Chronic respiratory failure chronic Obstructive sleep apnea chronometer repairer kirby [facility] Work Phone: Evaluation note* Diagnosis Onset Date Resolution Status Aortic stenosis acute Atrial fibrillation acute Coronary artery disease acut e Debility acute Depression acute Diabetes mellitus acute Dysarthria acute Expressive aphasia acute GERD (gastroesophageal reflux disease) acute Seizure disorder acute Chronic respiratory failure chronic CKD (chronic kidney disease) stage 4, 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 Hypertension chronic Obstructive sleep apnea chronometer repairer kirby Encephalopathy resolved Debility acute Aortic stenosis acute Debility acute Acute exacerbation of CHF (congestive heart failure) chronic Chronic respiratory failure chronic CKD (chronic kidney disease) stage 4, 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 Chronic respiratory failure chronic Obstructive sleep apnea chronometer repairer kirby [facility] Work Phone: Evaluation note* Diagnosis Onset Date Resolution Status Aortic stenosis acute Debility acute Acute exacerbation of CHF (congestive heart failure) chronic Chronic respiratory failure chronic CKD (chronic kidney disease) stage 4, 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 Chronic respiratory failure chronic Obstructive sleep apnea [facility] Work Phone: Hospital course Narrative No data available for this section [facility] Hospital Discharge instructions No data available for this section [facility] Hospital Discharge instructions Additional Instructions Continue take [...] tizanidine for this. I do recommend using [id number] Lidoderm patches as well to the area of maximum pain in your lower back. Return to the ER if you have a progression or worsening of your symptoms or further concerns.[facility] Work Phone: Progress note No data available for this section [facility] Reason for referral (narrative)No reason for referral information availableWSycam[facility] Work Phone: Chief Complaint and Reason for Visit Chief Complaint 6 M FU RETACRIT RETACRIT RETACRIT RETACRIT Reason for Visit Atherosclerosis of c oronary artery of resighini heart without angina pectoris Essential (primary) hypertension [...] sleep apnea Atherosclerosis of coronary artery of resighini heart without angina pectoris Essential (primary) hypertension H/O aortic valve replacement H/O coronary artery bypass surgery Hyperlipemia Paroxysmal atrial fibrillation Chief Complaint 1 Y FU RETACRIT RETACRIT 6 M FU RETACRIT RETACRIT Reason for Visit Restrictive airway d isease Chronic renal failure, stage 3 (moderate) Chronic respiratory failure with hypoxia Obstructive sleep apnea Atherosclerosis of coronary artery of resighini heart without angina pectoris Essential (primary) hypertension H/O aortic valve replacement H/O coronary artery bypass surgery Hyperlipemia Paroxysmal atrial fibrillation Chief Complaint RETACRIT RETACRIT 6 M FU RETACRIT RETACRIT Reason for Visit Atherosclerosis of c oronary artery of resighini heart without angina pectoris Essential (primary) hypertension H/O aortic valve replacement H/O coronary artery bypass surgery Hyperlipemia Paroxysmal atrial fibrillation Chief Complaint RETACRIT RETACRIT 6 M FU RETACRIT RETACRIT RETACRIT Reason for Visit Atherosclerosis of c oronary artery of resighini heart without angina pectoris Essential (primary) hypertension H/O aortic valve replacement H/O coronary artery bypass surgery Hyperlipemia Paroxysmal atrial fibrillation Chief Complaint RETACRIT 6 M FU RETACRIT RETACRIT RETACRIT RETACRIT Reason for Visit Atherosclerosis of c oronary artery of resighini heart without angina pectoris Essential (primary) hypertension [...] ap kalen Atherosclerosis of coronary artery of resighini heart without angina pectoris Essential (primary) hypertension H/O aortic valve replacement Hyperlipemia Paroxysmal atrial fibrillation Chief Complaint RETACRIT RETACRIT RETACRIT retacrit 1 Y FU retacrit Reason for Visit Atherosclerosis of c oronary artery of resighini heart without angina pectoris Essential (primary) hypertension H/O aortic valve replacement Hyperlipemia Paroxysmal atrial fibrillation Chief Complaint RETACRIT RETACRIT retacrit 1 Y FU retacrit retacrit Reason for Visit Atherosclerosis of c oronary artery of resighini heart without angina pectoris Essential (primary) hypertension H/O aortic valve replacement Hyperlipemia Paroxysmal atrial fibrillation Chief Complaint retacrit 1 Y FU retacrit retacrit retacrit retacrit Reason for Visit Atherosclerosis of c oronary artery of resighini heart without angina pectoris Essential (primary) hypertension [...] Visit Atherosclerosis of c oronary artery of resighini heart without angina pectoris Essential (primary) hypertension [...] Obstructive sleep apnea March 14, 2025 2:55pm Chief Complaint Admit Date lab draw January 29, 2025 2:44 pm lab draw February 26, 2025 2:39 pm CPAP motor life exceeded March 14 2:55pm lab draw March 28, 2025 2:42pm lab draw April 25, 2025 2:54p m lab draw May 22, 2025 2:56 pm Family History No Family History Records Found Relationship Condition Age at Onset Recorded Date/T gautam father Myocardial infarction Unknown mother Cerebrovascular accident (CVA) Unknown brother Coronary artery disease Unknown Diabetes mellitus Unknown Advance Directives No Advanced Directives Records Found Advance Directive Response Recorded Date/ Time Advance Directives No September 12:41pm Living Will No January 31, 2021 1:32pm Power of Shop Laborer No January 31 1:32pm Advance Directive Response Recorded Date/ Time Advance Directives No September 11:41am Living Will No January 31, 2021 12:32pm Power of Shop Laborer No January 31 12:32pm Advance Directive Response Recorded Date/ Time Advance Directives No September 12:41pm Living Will No June 29, 2023 12:48pm Power of Shop Laborer No June 29 12:48pm Advance Directive Response Recorded Date/ Time Advance Directives No September 12:41pm Living Will No June 29, 2023 3:15pm Power of Shop Laborer No June 29 3:15pm Advance Directive Response Recorded Date/ Time Advance Directives No September 12:41pm Living Will No July 04, 2023 11:19am Power of Shop Laborer No July 04 11:19am Advance Directive Response Recorded Date/ Time Name of Medical Power of Shop Laborer GRAND DAUGHTER August 18, 2023 11:51am Advance Directives No September 12:41pm Living Will Yes August 18, 2023 11:51am Power of Shop Laborer Yes July 11:51am Advance Directive Response Recorded Date/ Time Name of Medical Power of Shop Laborer GRAND DAUGHTER August 18, 2023 5:51pm Advance Directives No September 12:41pm Living Will Yes August 18, 2023 5:51pm Power of Shop Laborer Yes July 5:51pm Advance Directive Response Recorded Date/ Time Name of Medical Power of Shop Laborer MARIA LUISA-GRANDDAUGHTER August 31, 2023 4:30pm Name of Medical Power of Shop Laborer MARIA LUISA FRAME- GRANDDAUGHTER September 16, 2023 4:13pm Advance Directives No September 12:41pm Living Will Yes September 16 4:13pm Power of Shop Laborer Yes September 16, 2023 4:13pm Name of Medical Power of Shop Laborer GRAND DAUGHTER August 18, 2023 5:51pm Advance Directive Response Recorded Date/ Time Name of Medical Power of Shop Laborer MARIA LUISA-GRANDDAUGHTER August 31, 2023 4:30pm Name of Medical Power of Shop Laborer MARIA LUISA FRAME- GRANDDAUGHTER September 16, 2023 8:46pm Advance Directives No September 12:41pm Living Will Yes September 16 8:46pm Power of Shop Laborer Yes September 16, 2023 8:46pm Name of Medical Power of Shop Laborer GRAND DAUGHTER August 18, 2023 5:51pm Advance Directive Response Recorded Date/ Time Name of Medical Power of Shop Laborer MARIA LUISA-GRANDDAUGHTER August 31, 2023 3:30pm Name of Medical Power of Shop Laborer MARIA LUISA FRAME- GRANDDAUGHTER September 16, 2023 7:46pm Advance Directives No September 11:41am Living Will Yes September 16 7:46pm Power of Shop Laborer Yes September 16, 2023 7:46pm Name of Medical Power of Shop Laborer GRAND DAUGHTER August 18, 2023 4:51pm Advance Directive Response Recorded Date/ Time Name of Medical Power of Shop Laborer MARIA LUISA FRAME- GRANDDAUGHTER September 16, 2023 7:46pm Advance Directives No September 11:41am Living Will Yes September 16 7:46pm Power of Shop Laborer Yes September 16, 2023 7:46pm Advance Directive Response Recorded Date/ Time Advance Directives No September 12:41pm Living Will Yes September 16 8:46pm Power of Shop Laborer Yes September 16, 2023 8:46pm Advance Directive Response Recorded Date/ Time Name of Medical Power of Shop Laborer maria luisa morris February 15, 2024 11:56pm Advance Directives No September 12:41pm Living Will Yes February 15, 2024 11:56pm Power of Shop Laborer Yes February 14 11:56pm Advance Directive Response Recorded Date/ Time Name of Medical Power of Shop Laborer VIVIEN Malin February 19, 2024 12:00pm Advance Directives No September 12:41pm Living Will Yes February 19, 2024 12:00pm Power of Shop Laborer Yes February 18 12:00pm Name of Medical Power of Shop Laborer maria luisa morris February 15, 2024 11:56pm Advance Directive Response Recorded Date/ Time Living Will Yes February 19, 2024 12:00pm Do you have a Healthcare Power of Shop Laborer? Yes February 19, 2024 12:00pm Advance Directives [...] MD Family Provider Active Dr. Rios Downey DO Primary Care Provider Active Team Status: Inactive Member Role Status Dates Dr. Jennifer Lu MD Referring Provider Active Dr. Josh Cline , DO Attending Provider Active Dr. Rios Downey DO Primary Care Provider Active Team Status: Inactive Member Role Status Dates Dr. Rios Downey DO Primary Care Provider Active Dr. Pepe Au MD Attending Provider, Referring Provider Active Team Status: Inactive Member Role Status Dates Dr. Rios Downey DO Primary Care Provider Active Dr. Toñito Espino , DO Attending Provider, Referring Pr ovider Active Team Status: Inactive Member Role Status Dates Dr. Rios Downey DO Primary Care Provider, Referrin g Provider Active Hector Sheldon VE TEACHER, VE TEACHER-C Attending Provider Active Team Status: Active Member Role Status Dates Dr. Rios Downey DO Primary Care Provider Active Dr. Pepe [...] Angélica Palomo , DO Emergency Provider Active Dr. Rigoberto Ashley [...] Angélica Palomo , DO Emergency Provider Active Dr. Rigoberto Ashley MD Admit Provider, Other Provider Active Dr. Woody Brunson , DO Attending Provider, Other Pro vider Active Team Status: Inactive Member Role Status Dates Dr. Rios Downey DO Primary Care Provider Active Dr. Angélica Palomo , DO Emergency Provider Active Dr. Rigoberto Ashley [...] Primary Care Provider Active Dr. Farhan Bonds , DO Emergency Provider Active Team Status: Active Member Role Status Dates Dr. Rios Downey DO Primary Care Provider Active Dr. Farhan Bonds , DO Emergency Provider Active Dr. Patricia Alcantara MD Admit Provider, Attending Prov ider Active Team Status: Active Member Role Status Dates Dr. Rios Downey , DO Primary Care Provider Active Dr. Farhan Bonds , DO Emergency Provider Active Dr. Patricia Alcantara MD Admit Provider, Other Provider Active Dr. James Camarillo MD Attending Provider, Other Provid er Active Team Status: Active Member Role Status Dates Dr. Rios Downey , DO Primary Care Provider Active Dr. Farhan Bonds , DO Emergency Provider Active Dr. Patricia Alcantara MD Admit Provider, Other Provider Active Dr. Mikey Macias , DO Attending Provider, Other Provid er Active Dr. James Camarillo MD Other Provider Active Team Status: Inactive Member Role Status Dates Dr. Rios Downey , DO Primary Care Provider Active Dr. Farhan Bonds , DO Emergency Provider Active Dr. Patricia Alcantara MD Admit Provider, Other Provider Active Dr. Mikey Macias , DO Attending Provider Active Dr. James Camarillo MD Other Provider Active Team Status: Active Member Role Status Dates Dr. Rios Downey , DO Primary Care Provider Active Dr. Cesar Medina , DO Emergency Provider Active Dr. Patricia Alcantara MD Attending Provider Active Team Status: Inactive Member Role Status Dates Dr. Rios Downey , DO Primary Care Provider Active Dr. Oscar Brown , DO Attending Provider, Emergency Provide r Active Team Status: Active Member Role Status Dates Dr. Rios Downey , DO Primary Care Provider Active Dr. Cesar Medina , DO Emergency Provider Active Dr. Patricia Alcantara MD Admit Provider, Attending Prov ider Active Team Status: Active Member Role Status Dates Dr. Rios Downey , Primary Care Provider Active Dr. Cesar Medina [...] Ashraf MD Other Provider Active Gosia Saenz VE TEACHER, VE TEACHER-C Other Provider Active Team Status: Active Member [...] MD Other Provider Active Gosia Saenz NP, VE TEACHER-C Other Provider Active Team Status: Inactive Member [...] Ashraf MD Other Provider Active Gosia Saenz VE TEACHER, VE TEACHER-C Other Provider Active Team Status: Inactive Member Role Status Dates Dr. Rios Downey , DO Primary Care Provider, Referrin g Provider Active Gosia Saenz VE TEACHER, VE TEACHER-C Attending Provider Active Team Status: Active Member [...] Ashraf MD Other Provider Active Gosia Saenz VE TEACHER, VE TEACHER-C Other Provider Active Team Status: Inactive Member Role Status Dates Dr. Rios Downey , DO Primary Care Provider Active Dr. Angélica Palomo , DO Emergency Provider Active Team Status: Inactive Member Role Status Dates Dr. Rios Downey , DO Primary Care Provider Active Dr. Cesar Medina , DO Emergency Provider Active Team Status: [...] Downey DO Primary Care Provider Active Start: October 31, 2024 End: October 31, 2024 Dr. Pepe Au MD Attending Provider Active Start: October 31, 2024 End: October 31, 2024 Dr. Pepe Au MD Referring Provider Active Start: October 31, 2024 End: October 31, 2024 Team Status: Inactive Member Role Status Dates Dr. Rios Downey , Primary Care Provider Active Start: December 04, [...] 2025 End: March 14, 2025 Gosia Saenz VE TEACHER, VE TEACHER-C Attending Provider Active Start: March 14, 2025 [...] April 25, 2025 End: April 25, 2025 Team Status: Inactive Member Role Status Dates Dr. Rios Downey DO Primary Care Provider Active Start: May 22, 2025 End: May 22, 2025 Dr. Pepe Au MD Attending Provider Active Start: May 22, 2025 End: May 22, 2025 Dr. Pepe Au MD Referring Provider Active Start: May 22, 2025 End: May 22, 2025 (unrecognized sect ion and content) No Status Records FoundNo Status Records Found INFORMATION SOURCE (unrecogn ized section and content) DATE CREATED AUTHOR 05/29/2023 [facility] ([place] DATE CREATED AUTHOR AUTHOR'S ORGANIZ ATION 05/28/2025 [facility] FOR RECORDS PERTAINING TO PATIENTS WHO ARE [...] BE BASED ON THE PRIMARY CLINICAL RECORDS. [facility] [facility]. provides no warranty or guarantee of the accuracy or completeness of information in this document.
--- OUTSIDE RECORDS SUMMARY | 2025-05-31 22:55 | XMS RPT_ITS | CCD ---
Author Organization [facility] Care Team Providers Care Medical Records Library Professor Name Role Phone Dr. Jennifer Lu Primary Care Provider Dr. Jennifer Lu Referring Provider [phone] Monalisa FIELD TEST ENGINEER, FIELD TEST ENGINEER-C Hector Nogueira Attending Provider [phone] Dr. Jennifer Lu Primary Care Provider Aly, Dr. Gavin Referring Provider [phone] Dany FIELD TEST ENGINEER, FIELD TEST ENGINEER-C Gosia Attending Provider Monalisa FIELD TEST ENGINEER, FIELD TEST ENGINEER-C Hector Nogueira Attending Provider Dr. Jennifer Lu Primary Care Provider Dr. Jennifer Lu Referring Provider [phone] Dr. Jennifer Lu Primary Care Provider Ayl, Dr. Gavin Referring Provider [phone] Monalisa FIELD TEST ENGINEER, ZOYA-C Hector Nogueira Attending Provider Dr. Jennifer Lu Referring Provider [phone] Dr. Josh Cline Attending Provider Dr. Rios Downey Primary Care Provider [phone] Dr. Rios Downey Referring Provider [phone] Monalisa FIELD TEST ENGINEER, FIELD TEST ENGINEER-C Hector Nogueira Attending Provider Dr. Rios Downey Primary Care Provider [phone] Dr. Rios Downey Referring Provider [phone] Monalisa FIELD TEST ENGINEER, FIELD TEST ENGINEER-C Hector Nogueira Attending Provider [phone] RIOS [...] Referring Provider Dr. Farhan Bonds Emergency Provider [phone] Dr. Patricia Alcantara Admit Provider Dr. Patricia Alcantara Other Provider Dr. James Camarillo Attending Provider Unavailable Dr. James Camarillo Other Provider Unavailable Dr. Mikey Macias Attending Provider Dr. Mikey Macias Other Provider Dr. Cesar Medina Emergency Provider [phone] Dr. Patricia Alcantara Attending Provider Dr. Aleksander Hilliard Attending Provider Dr. Aleksander Hilliard Other Provider Dr. Eladio Lucas Attending Provider Dr. Eladio Lucas Other Provider Dr. Yaakov Love Other Provider Dr. Josh Cline Other Provider Dr. Michelle Peters Other Provider Unavailable Dr. Otto Jerry Other Provider Dr. Tal Ashraf Other Provider Unavailab Mir FIELD TEST ENGINEER, FIELD TEST ENGINEER-C Gosia Other Provider Dr. Yaakov Love Attending [...] Provider Dr. Farhan Bonds Emergency Provider [phone] Patricia Alcantara Admit Provider Dr. Patricia Alcantara Other Provider Dr. James Camarillo Attending Provider Unavailable Dr. James Caamrillo Other Provider Unavailable Dr. Mikey Macias Attending [...] Tal Ashraf Other Provider Unavailab le Dany FIELD TEST ENGINEER, FIELD TEST ENGINEER-C Gosia Other Provider Dr. Eladio Lucas Referring Provider Dr. Yaakov Love Attending Provider Dr. Rios Downey Referring Provider Dany FIELD TEST ENGINEER, FIELD TEST ENGINEER-C Gosia Attending Provider Dr. Rios Downey Primary Care Provider Dr. Woody Brunson Other Provider Dr. Rios Downey Primary Care Provider Dr. Cesar Medina Emergency Provider [phone] Dr. Patricia Alcantara Admit Provider Dr. Patricia [...] Tal Ashraf Other Provider Unavailab le Dany FIELD TEST ENGINEER, FIELD TEST ENGINEER-C Gosia Other Provider Dr. Eladio Lucas Attending Provider [phone] Dr. Rios Downey Referring Provider [phone] Dany FIELD TEST ENGINEER, FIELD TEST ENGINEER-C Gosia Attending Provider Dr. Rios Downey Primary [...] Dayanand Referring Unavailable Angely, Daygermainnd Attending Unavailable iRos Doweny Primary Care Unavailable Angely, Daygermainnd Attending Unavailable [...] Unavailable Downey, Rios Primary Care Unavailable Dany FIELD TEST ENGINEER, Gosia Attending Unavailable Downey, Rios Primary Care Unavailable Downey, Rios Referring Unavailable Saenz FIELD TEST ENGINEER, Gosia Attending Unavailable Makey, Dayanand Attending Unavailable [...] antibiotic- (substance)] Allergy to substance 1 Swelling, [facility] (1 source) Pravastatin; Translations: [pravastatin] Drug Allergy Cramp (finding) [facility] Medications Current Medications Medication Drug Class(es) Dates [...] PO DAILY July 11, 2016 12:00am calcitriol 0.75429 mg oral capsule (20 sources) Vitamin D3 [...] attention, # 25 tab(s), 11 Refill(s), Pharmacy: [id number], 161, cm, 04/30/21 16:15:00 [...] Drug Class(es) Dates Sig (Normalized) Sig (Original) [id number] actuat albuterol 0.09 mg/actuat metered dose [...] 4:53pm docusate sodium 50 mg / sennosides, [facility] 8.6 mg oral tablet (17 sources) Start: [...] Coronary atherosclerosis; 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 Absolute neutrophil countOrd ered By: Pepe Au on 05-22-2025 Neutrophils (Bld) [#/Vol] 4.3 10*3/uL 2.0-7.[address] [facility] Anion gap in Serum or Plasma Ordered By: Toñito Espino on 05-22-2025 Anion gap [Moles/Vol] 15 mmol/L - [facility] Automated lymphocyte count a s percentage of total leukocytesOrdered By: Pepe Au on 05-22-2025 Lymphocytes/100 WBC Auto (Unsp spec) 27.0 % 19-[address] [facility] BUN/creatinine ratioOrdered By: Toñito Espino on 05-22-2025 Urea nitrogen/Creatinine [Mass ratio] 18.4 mg/mg 10-[address] [facility] Basophil percentageOrdered B y: Pepe Au on 05-22-2025 Basophils/100 WBC (Bld) 0.4 % 0-1 [facility] Bilirubin, totalOrdered By: Toñito Espino on 05-22-2025 Bilirubin [Mass/Vol] 0.77 mg/dL 0.00-1.30 [facility] Calculated very low density lipoprotein (VLDL) cholesterol measurementOrdered By: Toñito Espino on 05-22-2025 Calculated very low density lipoprotein (VLDL) cholesterol measurement 23 mg/dL 5-[address] [facility] Carbon dioxide, total [Moles /volume] in Central venous bloodOrdered By: Toñito Espino on 05-22-2025 CO2 [Moles/Vol] 19.3 mmol/L Low 21.0-32.[address] [facility] Chloride assayOrdered By: Vicente Espino on 05-22-2025 Chloride [Moles/Vol] 108 mmol/L 98-108 [facility] Eosinophil percentageOrdered By: Pepe Au on 05-22-2025 Eosinophils/100 WBC (Bld) 1.5 % 0-[address] [facility] Erythrocyte distribution wid th ratioOrdered By: Pepe Au on 05-22-2025 Erythrocyte distribution width (RBC) [Ratio] 15.2 % High 11.6-14.[address] [facility] Erythrocyte distribution wid th standard deviationOrdered By: Pepe Au on 05-22-2025 Erythrocyte distribution width (RBC) [Ratio] 56.1 fl High 35.1-43.[address] [facility] Glomerular filtration rate ( GFR) estimation/1.73 sq m using serum, plasma, or whole bOrdered By: Toñito Espino on 05-22-2025 GFR/1.73 sq M.predicted among non-blacks MDRD (S/P/Bld) [Vol rate/Area] 25 mL/min/{1.73_m2} Low >[address] [facility] Comment on above: mL/min/1.73m2 CKD-EP I Creatinine Equation (2020) Hematocrit Auto (Bld) [Volum e fraction]Ordered By: Pepe Au on 05-22-2025 Hematocrit (Bld) [Volume fraction] 38.0 % Low 40-[address] [facility] Hemoglobin A1c percentageOrd ered By: Toñito Espino on 05-22-2025 HbA1c (Bld) [Mass fraction] 5.7 % <5.[address] [facility] Comment on above: Normal < 5.7 % Predi abetic 5.7 - 6.4 % Diabetic >or= 6.5 % Please note range changes. Hemoglobin measurementOrdere d By: Pepe Au on 05-22-2025 Hemoglobin (Bld) [Mass/Vol] 12.2 g/dL Low 13.0-16.[address] [facility] Immature granulocytes/100 WB C Auto (Bld)Ordered By: Pepe Au on 05-22-2025 Immature granulocytes/100 WBC (Bld) 0.400 % 0.0-0.[address] [facility] Comment on above: IG% - Immature Granu locytes (promyelocytes, myelocytes and metamyelocytes) > 1% indicates that a LEFT SHIFT is Present. Iron measurement (mass/mass) Ordered By: Pepe Au on 05-22-2025 Iron (Unsp spec) [Mass/Mass] 72 ug/dL 65-[address] [facility] LDL calc ser/plasOrdered By: Toñito Espino on 05-22-2025 Cholesterol in LDL [Mass/Vol] 80 mg/dL [facility] Comment on above: Sdlkisypad=050-230 m g/dL & Higher Wfgw=194 mg/dL or greater Laboratory - Chemistry and C hemistry - challengeOrdered By: Toñito Espino on 05-22-2025 AST [Catalytic activity/Vol] 26 U/L <[address] [facility] MCV (mean corpuscular volume ) determinationOrdered By: Pepe Au on 05-22-2025 MCV (RBC) [Entitic vol] 101.3 fL High 80-94 [facility] Mean corpuscular hemoglobin (MCH) determinationOrdered By: Pepe Au on 05-22-2025 MCH (RBC) [Entitic mass] 32.5 pg High 27.0-32.[address] [facility] Mean corpuscular hemoglobin concentration (MCHC) determinationOrdered By: Pepe Au on 05-22-2025 MCHC (RBC) [Mass/Vol] 32.1 g/dL 32-36 [facility] Mean platelet volume determi nationOrdered By: Pepe Au on 05-22-2025 Platelet mean volume (Bld) [Entitic vol] 11.0 fL 6.2-12.[address] [facility] Monocyte percentageOrdered B y: Pepe Au on 05-22-2025 Monocytes/100 WBC (Bld) 8.0 % 0-10 [facility] Neutrophil percentageOrdered By: Pepe Au on 05-22-2025 Neutrophils/100 WBC (Bld) 62.7 % 47-[address] [facility] No Panel InformationOrdered By: Pepe Au on 05-22-2025 Unsaturated Iron Binding Capacity 186 ug/dL Low 228-[address] [facility] Nucleated red blood cell per centageOrdered By: Pepe Au on 05-22-2025 Nucleated RBC/100 WBC (Bld) [Ratio] 0 % 0-[address] [facility] Platelet countOrdered By: Chaim Au on 05-22-2025 Platelets (Bld) [#/Vol] 101 10*3/uL Low 150-[address] [facility] Potassium measurement (mass/ volume)Ordered By: Toñito Espino on 05-22-2025 Potassium (Unsp spec) [Mass/Vol] 5.1 mmol/L 3.3-5.[address] [facility] RBC Auto (Bld) [#/Vol]Ordere d By: Pepe Au on 05-22-2025 RBC (Bld) [#/Vol] 3.75 10*6/uL Low 4.6-6.2 [facility] Screening total cholesterol/ high density lipoprotein (HDL) cholesterol ratioOrdered By: Toñito Espino on 05-22-2025 Cholesterol.total/Choles terol in HDL [Mass ratio] 3.65 {ratio} [facility] Serum creatinine measurement (mass/volume)Ordered By: Toñito Espino on 05-22-2025 Creatinine [Mass/Vol] 2.44 mg/dL High 0.70-1.20 [facility] Serum globulin measurementOr dered By: Toñito Espino on 05-22-2025 Globulin (S) [Mass/Vol] 3.6 g/dL 2.2-4.2 [facility] Serum glucose measurement (m ass/volume)Ordered By: Toñito Espino on 05-22-2025 Glucose [Mass/Vol] 104 mg/dL High 70-99 [facility] Serum or plasma alanine irving otransferase (ALT) measurementOrdered By: Toñito Espino on 05-22-2025 ALT [Catalytic activity/Vol] 12 U/L <[address] [facility] Serum or plasma albumin aubree urement (mass/volume)Ordered By: Toñito Espino on 05-22-2025 Albumin [Mass/Vol] 4.1 g/dL 3.4-4.8 [facility] Serum or plasma albumin/glob ulin mass ratioOrdered By: Toñito Espino on 05-22-2025 Albumin/Globulin [Mass ratio] 1.2 {ratio} 0.9-2.[address] [facility] Serum or plasma alkaline tamiko sphatase measurementOrdered By: Toñito Espino on 05-22-2025 ALP [Catalytic activity/Vol] 192 U/L High 40-[address] [facility] Serum or plasma calcium aubree urement (mass/volume)Ordered By: Toñito Espino on 05-22-2025 Calcium [Mass/Vol] 10.1 mg/dL 7.6-11.0 [facility] Serum or plasma cholesterol in HDL measurement (mass/volume)Ordered By: Toñito Espino on 05-22-2025 Cholesterol in HDL [Mass/Vol] 39 mg/dL Low >[address] [facility] Comment on above: National Cholesterol Education Program (NCEP) guidelines:<40 mg/dL: Low HDL-cholesterol (major risk factor for CHD)>= 60 mg/dL: High HDL-cholesterol (negative risk factor for CHD)HDL-cholesterol is affected by a number of factors, e.g. smoking, exercise, hormones, sex and age. Serum or plasma cholesterol measurement (mass/volume)Ordered By: Toñito Espino on 05-22-2025 Cholesterol [Mass/Vol] 142 mg/dL <201 [facility] Comment on above: Cholesterol level, D esirable <200 mg/dLBorderline high cholesterol 200-239 mg/dLHigh cholesterol >=240 mg/dLRecommendations of the NCEP Adult Treatment Panel for the following risk-cutoff thresholds for the [place] population. Serum or plasma ferritin laurie surement (mass/volume)Ordered By: Pepe Au on 05-22-2025 Ferritin [Mass/Vol] 184 ng/mL 37-417 [facility] Serum or plasma iron saturat ion measurement (mass fraction)Ordered By: Pepe Au on 05-22-2025 Iron saturation [Mass fraction] 28.0 % 9-[address] [facility] Serum or plasma urea nitroge n measurement (mass/volume)Ordered By: Toñito Espino on 05-22-2025 Urea nitrogen [Mass/Vol] 45 mg/dL High 4-[address] [facility] Sodium levelOrdered By: Cornelio Espino on 05-22-2025 Sodium [Moles/Vol] 142 mmol/L 133-145 [facility] TSH DL <= 0.005 mIU/L QnOrde red By: Toñito Espino on 05-22-2025 TSH Qn 7.250 uIU/mL High 0.300-4.[address] [facility] Total proteinOrdered By: Sujit Espino on 05-22-2025 Protein [Mass/Vol] 7.7 g/dL 5.9-8.4 [facility] Triglycerides measurementOrd ered By: Toñito Espino on 05-22-2025 Triglyceride [Mass/Vol] 115 mg/dL <199 [facility] Comment on above: The drugs N-Acetylcy steine and Metamizole may falsely depress this assay. Normal range: <150 mg/dLBorderline High: 150-199 mg/dLHigh: 200-499 mg/dLVery High: >500 mg/dL White blood cell (WBC) count Ordered By: Pepe uA on 05-22-2025 WBC (Bld) [#/Vol] 6.9 10*3/uL 4.4-11.0 [facility] Absolute lymphocyte countOrd ered By: Pepe Au on 04-25-2025 Lymphocytes Auto (Unsp spec) [#/Vol] 1.73 10*3/uL 0.83-4.[address] [facility] Absolute neutrophil countOrd ered By: Pepe Au on 04-25-2025 Neutrophils (Bld) [#/Vol] 5.4 10*3/uL 2.0-7.[address] [facility] Anion gap in Serum or Plasma Ordered By: Pepe Au on 04-25-2025 Anion gap [Moles/Vol] 13 mmol/L 5-15 [facility] Automated lymphocyte count a s percentage of total leukocytesOrdered By: Pepe Au on 04-25-2025 Lymphocytes/100 WBC Auto (Unsp spec) 22.3 % 19-[address] [facility] BUN/creatinine ratioOrdered By: Pepe Au on 04-25-2025 Urea nitrogen/Creatinine [Mass ratio] 21.2 mg/mg High 10-[address] [facility] Basophil percentageOrdered B y: Pepe Au on 04-25-2025 Basophils/100 WBC (Bld) 0.5 % 0-1 [facility] Carbon dioxide, total [Moles /volume] in Central venous bloodOrdered By: Pepe Au on 04-25-2025 CO2 [Moles/Vol] 21.1 mmol/L 21.0-32.[address] [facility] Chloride assayOrdered By: Chaim Au on 04-25-2025 Chloride [Moles/Vol] 109 mmol/L High 98-108 [facility] Eosinophil percentageOrdered By: Pepe Au on 04-25-2025 Eosinophils/100 WBC (Bld) 1.3 % 0-[address] [facility] Erythrocyte distribution wid th ratioOrdered By: Pepe Au on 04-25-2025 Erythrocyte distribution width (RBC) [Ratio] 15.1 % High 11.6-14.[address] [facility] Erythrocyte distribution wid th standard deviationOrdered By: [facility]ve Au on 04-25-2025 Erythrocyte distribution width (RBC) [Ratio] 56.2 fl High 35.1-43.[address] [facility] Glomerular filtration rate ( GFR) estimation/1.73 sq m using serum, plasma, or whole bOrdered By: Pepe Au on 04-25-2025 GFR/1.73 sq M.predicted among non-blacks MDRD (S/P/Bld) [Vol rate/Area] 25 mL/min/{1.73_m2} Low >[address] [facility] Comment on above: mL/min/1.73m2 CKD-EP I Creatinine Equation (2020) Hematocrit Auto (Bld) [Volum e fraction]Ordered By: Pepe Au on 04-25-2025 Hematocrit (Bld) [Volume fraction] 34.1 % Low 40-[address] [facility] Hemoglobin measurementOrdere d By: Pepe Au on 04-25-2025 Hemoglobin (Bld) [Mass/Vol] 10.9 g/dL Low 13.0-16.[address] [facility] Immature granulocytes/100 WB C Auto (Bld)Ordered By: Pepe Au on 04-25-2025 Immature granulocytes/100 WBC (Bld) 0.300 % 0.0-0.[address] [facility] Comment on above: IG% - Immature Granu locytes (promyelocytes, myelocytes and metamyelocytes) > 1% indicates that a LEFT SHIFT is Present. Iron measurement (mass/mass) Ordered By: Pepe Au on 04-25-2025 Iron (Unsp spec) [Mass/Mass] 68 ug/dL 65-[address] [facility] MCV (mean corpuscular volume ) determinationOrdered By: Pepe Au on 04-25-2025 MCV (RBC) [Entitic vol] 101.2 fL High 80-94 [facility] Mean corpuscular hemoglobin (MCH) determinationOrdered By: Pepe Au on 04-25-2025 MCH (RBC) [Entitic mass] 32.3 pg High 27.0-32.[address] [facility] Mean corpuscular hemoglobin concentration (MCHC) determinationOrdered By: Pepe Au on 04-25-2025 MCHC (RBC) [Mass/Vol] 32.0 g/dL 32-[facility] Mean platelet volume determi nationOrdered By: Pepe Au on 04-25-2025 Platelet mean volume (Bld) [Entitic vol] 10.6 fL 6.2-12.[address] [facility] Monocyte percentageOrdered B y: Pepe Au on 05-29-2025 Monocytes/100 WBC (Bld) 6.2 % 0-10 [facility] Neutrophil percentageOrdered By: Pepe Au on 04-25-2025 Neutrophils/100 WBC (Bld) 69.4 % 47-[address] [facility] No Panel InformationOrdered By: Pepe Au on 04-25-2025 Unsaturated Iron Binding Capacity 155 ug/dL Low 228-[address] [facility] Nucleated red blood cell per centageOrdered By: Pepe Au on 04-25-2025 Nucleated RBC/100 WBC (Bld) [Ratio] 0 % 0-[address] [facility] Platelet countOrdered By: Chaim Au on 04-25-2025 Platelets (Bld) [#/Vol] 105 10*3/uL Low 150-[address] [facility] Potassium measurement (mass/ volume)Ordered By: Pepe Au on 04-25-2025 Potassium (Unsp spec) [Mass/Vol] 5.2 mmol/L High 3.3-5.[address] [facility] RBC Auto (Bld) [#/Vol]Ordere d By: Pepe Au on 04-25-2025 RBC (Bld) [#/Vol] 3.37 10*6/uL Low 4.6-6.2 [facility] Serum creatinine measurement (mass/volume)Ordered By: Pepe Au on 04-25-2025 Creatinine [Mass/Vol] 2.50 mg/dL High 0.70-1.20 [facility] Serum glucose measurement (m ass/volume)Ordered By: Pepe Au on 04-25-2025 Glucose [Mass/Vol] 131 mg/dL High 70-99 [facility] Serum or plasma albumin aubree urement (mass/volume)Ordered By: Pepe Au on 04-25-2025 Albumin [Mass/Vol] 3.8 g/dL 3.4-4.8 [facility] Serum or plasma calcium aubree urement (mass/volume)Ordered By: Pepe Au on 04-25-2025 Calcium [Mass/Vol] 9.9 mg/dL 7.6-11.0 [facility] Serum or plasma ferritin laurie surement (mass/volume)Ordered By: Pepe Au on 04-25-2025 Ferritin [Mass/Vol] 216 ng/mL 37-417 [facility] Serum or plasma iron saturat ion measurement (mass fraction)Ordered By: Pepe Au on 04-25-2025 Iron saturation [Mass fraction] 30.0 % 9-[address] [facility] Comment on above: Previous reported re sult: 30.0 %Edited by: GWENDOLYN on 04/25/25:1554 Serum or plasma urea nitroge n measurement (mass/volume)Ordered By: Pepe Au on 04-25-2025 Urea nitrogen [Mass/Vol] 53 mg/dL High 4-[address] [facility] Sodium levelOrdered By: Lety Au on 04-25-2025 Sodium [Moles/Vol] 143 mmol/L 133-145 [facility] White blood cell (WBC) count Ordered By: Pepe Au on 04-25-2025 WBC (Bld) [#/Vol] 7.8 10*3/uL 4.4-11.0 [facility] Absolute lymphocyte countOrd ered By: Pepe Au on 04-15-2025 Lymphocytes Auto (Unsp spec) [#/Vol] 1.38 10*3/uL 0.83-4.[address] [facility] Absolute neutrophil countOrd ered By: Pepe Au on 04-15-2025 Neutrophils (Bld) [#/Vol] 5.0 10*3/uL 2.0-7.[address] [facility] Anion gap in Serum or Plasma Ordered By: Pepe Au on 04-15-2025 Anion gap [Moles/Vol] 12 mmol/L 5-15 [facility] Automated lymphocyte count a s percentage of total leukocytesOrdered By: Pepe Au on 04-15-2025 Lymphocytes/100 WBC Auto (Unsp spec) 19.4 % 19-[address] [facility] BUN/creatinine ratioOrdered By: Pepe Au on 04-15-2025 Urea nitrogen/Creatinine [Mass ratio] 20.4 mg/mg High 10-[address] [facility] Basophil percentageOrdered B y: Ppee Au on 04-15-2025 Basophils/100 WBC (Bld) 0.6 % 0-1 [facility] Carbon dioxide, total [Moles /volume] in Central venous bloodOrdered By: Pepe Au on 04-15-2025 CO2 [Moles/Vol] 21.4 mmol/L 21.0-32.[address] [facility] Chloride assayOrdered By: Chaim Au on 04-15-2025 Chloride [Moles/Vol] 108 mmol/L 98-108 [facility] Eosinophil percentageOrdered By: Pepe Au on 04-15-2025 Eosinophils/100 WBC (Bld) 2.7 % 0-[address] [facility] Erythrocyte distribution wid th ratioOrdered By: Pepe Au on 04-15-2025 Erythrocyte distribution width (RBC) [Ratio] 15.1 % High 11.6-14.[address] [facility] Erythrocyte distribution wid th standard deviationOrdered By: Pepe Au on 04-15-2025 Erythrocyte distribution width (RBC) [Ratio] 56.5 fl High 35.1-43.[address] [facility] Glomerular filtration rate ( GFR) estimation/1.73 sq m using serum, plasma, or whole bOrdered By: Pepe Au on 04-15-2025 GFR/1.73 sq M.predicted among non-blacks MDRD (S/P/Bld) [Vol rate/Area] 23 mL/min/{1.73_m2} Low >[address] [facility] Comment on above: mL/min/1.73m2 CKD-EP I Creatinine Equation (2020) Hematocrit Auto (Bld) [Volum e fraction]Ordered By: Pepe Au on 04-15-2025 Hematocrit (Bld) [Volume fraction] 34.5 % Low 40-[address] [facility] Hemoglobin measurementOrdere d By: Pepe Au on 04-15-2025 Hemoglobin (Bld) [Mass/Vol] 10.9 g/dL Low 13.0-16.[address] [facility] Immature granulocytes/100 WB C Auto (Bld)Ordered By: Pepe Au on 04-15-2025 Immature granulocytes/100 WBC (Bld) 0.400 % 0.0-0.[address] [facility] Comment on above: IG% - Immature Granu locytes (promyelocytes, myelocytes and metamyelocytes) > 1% indicates that a LEFT SHIFT is Present. Iron measurement (mass/mass) Ordered By: Pepe Au on 04-15-2025 Iron (Unsp spec) [Mass/Mass] 70 ug/dL 65-[address] [facility] MCV (mean corpuscular volume ) determinationOrdered By: Pepe Au on 04-15-2025 MCV (RBC) [Entitic vol] 101.2 fL High 80-94 [facility] Mean corpuscular hemoglobin (MCH) determinationOrdered By: Pepe Au on 04-15-2025 MCH (RBC) [Entitic mass] 32.0 pg 27.0-32.[address] [facility] Mean corpuscular hemoglobin concentration (MCHC) determinationOrdered By: Pepe Au on 04-15-2025 MCHC (RBC) [Mass/Vol] 31.6 g/dL Low 32-36 [facility] Mean platelet volume determi nationOrdered By: Pepe Au on 04-15-2025 Platelet mean volume (Bld) [Entitic vol] 11.7 fL 6.2-12.[address] [facility] Monocyte percentageOrdered B y: Pepe Au on 04-15-2025 Monocytes/100 WBC (Bld) 6.6 % 0-10 [facility] Neutrophil percentageOrdered By: Pepe Au on 04-15-2025 Neutrophils/100 WBC (Bld) 70.3 % High 47-[address] [facility] No Panel InformationOrdered By: Pepe Au on 04-15-2025 Unsaturated Iron Binding Capacity 163 ug/dL Low 228-[address] [facility] Nucleated red blood cell per centageOrdered By: Pepe Au on 04-15-2025 Nucleated RBC/100 WBC (Bld) [Ratio] 0 % 0-[address] [facility] Platelet countOrdered By: Chaim Au on 04-15-2025 Platelets (Bld) [#/Vol] 112 10*3/uL Low 150-[address] [facility] Potassium measurement (mass/ volume)Ordered By: Pepe Au on 04-15-2025 Potassium (Unsp spec) [Mass/Vol] 4.8 mmol/L 3.3-5.[address] [facility] RBC Auto (Bld) [#/Vol]Ordere d By: Pepe Au on 04-15-2025 RBC (Bld) [#/Vol] 3.41 10*6/uL Low 4.6-6.2 [facility] Random urine creatinine aubree urement (mass/volume)Ordered By: Pepe Au on 04-15-2025 Creatinine Unsp time (U) [Mass/Vol] 89.70 mg/dL 39.00-259.[address] [facility] Serum creatinine measurement (mass/volume)Ordered By: Pepe Au on 04-15-2025 Creatinine [Mass/Vol] 2.63 mg/dL High 0.70-1.20 [facility] Serum glucose measurement (m ass/volume)Ordered By: Pepe Au on 04-15-2025 Glucose [Mass/Vol] 139 mg/dL High 70-99 [facility] Serum or plasma albumin aubree urement (mass/volume)Ordered By: Pepe Au on 04-15-2025 Albumin [Mass/Vol] 3.9 g/dL 3.4-4.8 [facility] Serum or plasma calcium aubree urement (mass/volume)Ordered By: Pepe Au on 04-15-2025 Calcium [Mass/Vol] 9.3 mg/dL 7.6-11.0 [facility] Serum or plasma ferritin laurie surement (mass/volume)Ordered By: Pepe Au on 04-15-2025 Ferritin [Mass/Vol] 186 ng/mL 37-417 [facility] Serum or plasma iron saturat ion measurement (mass fraction)Ordered By: Pepe Au on 04-15-2025 Iron saturation [Mass fraction] 30.0 % 9-[address] [facility] Serum or plasma urea nitroge n measurement (mass/volume)Ordered By: Pepe Au on 04-15-2025 Urea nitrogen [Mass/Vol] 54 mg/dL High 4-[address] [facility] Serum or plasma uric acid me asurement (mass/volume)Ordered By: Pepe Au on 04-15-2025 Urate [Mass/Vol] 5.6 mg/dL 3.5-7.[address] [facility] Comment on above: The drugs N-Acetylcy steine and Metamizole may falsely depress this assay. Sodium levelOrdered By: Lety Au on 04-15-2025 Sodium [Moles/Vol] 141 mmol/L 133-145 [facility] Urine protein measurement (m ass/volume)Ordered By: Pepe Au on 04-15-2025 Protein (U) [Mass/Vol] 63.0 mg/dL High 0.0-12.0 [facility] Urine protein/creatinine mas s ratioOrdered By: Pepe uA on 04-15-2025 Protein/Creatinine (U) [Mass ratio] 702 mg/g CRE High 0-[address] [facility] White blood cell (WBC) count Ordered By: Pepe Au on 04-15-2025 WBC (Bld) [#/Vol] 7.1 10*3/uL 4.4-11.0 [facility] Absolute lymphocyte countOrd ered By: Pepe Au on 03-28-2025 Lymphocytes Auto (Unsp spec) [#/Vol] 1.95 10*3/uL 0.83-4.[address] [facility] Absolute neutrophil countOrd ered By: Pepe Au on 03-28-2025 Neutrophils (Bld) [#/Vol] 5.5 10*3/uL 2.0-7.[address] [facility] Anion gap in Serum or Plasma Ordered By: Pepe Au on 03-28-2025 Anion gap [Moles/Vol] 13 mmol/L 5-15 [facility] Automated lymphocyte count a s percentage of total leukocytesOrdered By: Pepe Au on 03-28-2025 Lymphocytes/100 WBC Auto (Unsp spec) 23.7 % 19-[address] [facility] BUN/creatinine ratioOrdered By: Pepe Au on 03-28-2025 Urea nitrogen/Creatinine [Mass ratio] 20.7 mg/mg High 10-[address] [facility] Basophil percentageOrdered B y: Pepe Au on 03-28-2025 Basophils/100 WBC (Bld) 0.5 % 0-1 [facility] Carbon dioxide, total [Moles /volume] in Central venous bloodOrdered By: Pepe Au on 03-28-2025 CO2 [Moles/Vol] 21.1 mmol/L 21.0-32.[address] [facility] Chloride assayOrdered By: Chaim Au on 03-28-2025 Chloride [Moles/Vol] 108 mmol/L 98-108 [facility] Eosinophil percentageOrdered By: Pepe Au on 03-28-2025 Eosinophils/100 WBC (Bld) 1.9 % 0-[address] [facility] Erythrocyte distribution wid th ratioOrdered By: Pepe Au on 03-28-2025 Erythrocyte distribution width (RBC) [Ratio] 14.6 % 11.6-14.[address] [facility] Erythrocyte distribution wid th standard deviationOrdered By: Pepe Au on 03-28-2025 Erythrocyte distribution width (RBC) [Ratio] 53.0 fl High 35.1-43.[address] [facility] Glomerular filtration rate ( GFR) estimation/1.73 sq m using serum, plasma, or whole bOrdered By: Pepe Au on 03-28-2025 GFR/1.73 sq M.predicted among non-blacks MDRD (S/P/Bld) [Vol rate/Area] 24 mL/min/{1.73_m2} Low >[address] [facility] Comment on above: mL/min/1.73m2 CKD-EP I Creatinine Equation (2020) Hematocrit Auto (Bld) [Volum e fraction]Ordered By: Pepe Au on 03-28-2025 Hematocrit (Bld) [Volume fraction] 35.2 % Low 40-[address] [facility] Hemoglobin measurementOrdere d By: Pepe Au on 03-28-2025 Hemoglobin (Bld) [Mass/Vol] 11.2 g/dL Low 13.0-16.[address] [facility] Immature granulocytes/100 WB C Auto (Bld)Ordered By: Pepe Au on 03-28-2025 Immature granulocytes/100 WBC (Bld) 0.500 % 0.0-0.[address] [facility] Comment on above: IG% - Immature Granu locytes (promyelocytes, myelocytes and metamyelocytes) > 1% indicates that a LEFT SHIFT is Present. Iron measurement (mass/mass) Ordered By: Pepe Au on 03-28-2025 Iron (Unsp spec) [Mass/Mass] 93 ug/dL 65-[address] [facility] MCV (mean corpuscular volume ) determinationOrdered By: Pepe Au on 03-28-2025 MCV (RBC) [Entitic vol] 100.0 fL High 80-94 [facility] Mean corpuscular hemoglobin (MCH) determinationOrdered By: Pepe Au on 03-28-2025 MCH (RBC) [Entitic mass] 31.8 pg 27.0-32.[address] [facility] Mean corpuscular hemoglobin concentration (MCHC) determinationOrdered By: Pepe Au on 03-28-2025 MCHC (RBC) [Mass/Vol] 31.8 g/dL Low 32-36 [facility] Mean platelet volume determi nationOrdered By: Pepe Au on 03-28-2025 Platelet mean volume (Bld) [Entitic vol] 11.5 fL 6.2-12.[address] [facility] Monocyte percentageOrdered B y: Pepe Au on 03-28-2025 Monocytes/100 WBC (Bld) 6.6 % 0-10 [facility] Neutrophil percentageOrdered By: Pepe Au on 03-28-2025 Neutrophils/100 WBC (Bld) 66.8 % 47-[address] [facility] No Panel InformationOrdered By: Pepe Au on 03-28-2025 Unsaturated Iron Binding Capacity 143 ug/dL Low 228-[address] [facility] Nucleated red blood cell per centageOrdered By: Pepe Au on 03-28-2025 Nucleated RBC/100 WBC (Bld) [Ratio] 0 % 0-[address] [facility] Platelet countOrdered By: Chaim Au on 03-28-2025 Platelets (Bld) [#/Vol] 107 10*3/uL Low 150-[address] [facility] Potassium measurement (mass/ volume)Ordered By: Pepe Au on 03-28-2025 Potassium (Unsp spec) [Mass/Vol] 5.3 mmol/L High 3.3-5.[address] [facility] RBC Auto (Bld) [#/Vol]Ordere d By: Pepe Au on 03-28-2025 RBC (Bld) [#/Vol] 3.52 10*6/uL Low 4.6-6.2 [facility] Serum creatinine measurement (mass/volume)Ordered By: Pepe Au on 03-28-2025 Creatinine [Mass/Vol] 2.56 mg/dL High 0.70-1.20 [facility] Serum glucose measurement (m ass/volume)Ordered By: Pepe Au on 03-28-2025 Glucose [Mass/Vol] 130 mg/dL High 70-99 [facility] Serum or plasma albumin aubree urement (mass/volume)Ordered By: Pepe Au on 03-28-2025 Albumin [Mass/Vol] 4.0 g/dL 3.4-4.8 [facility] Serum or plasma calcium aubree urement (mass/volume)Ordered By: Pepe Au on 03-28-2025 Calcium [Mass/Vol] 10.6 mg/dL 7.6-11.0 [facility] Serum or plasma ferritin laurie surement (mass/volume)Ordered By: Pepe Au on 03-28-2025 Ferritin [Mass/Vol] 191 ng/mL 37-417 [facility] Serum or plasma iron saturat ion measurement (mass fraction)Ordered By: Pepe Au on 03-28-2025 Iron saturation [Mass fraction] 39.0 % 9-[address] [facility] Comment on above: Previous reported re sult: 39.0 %Edited by: GWENDOLYN on 03/28/25:1546 Serum or plasma urea nitroge n measurement (mass/volume)Ordered By: Pepe Au on 03-28-2025 Urea nitrogen [Mass/Vol] 53 mg/dL High 4-[address] [facility] Sodium levelOrdered By: Lety Au on 03-28-2025 Sodium [Moles/Vol] 142 mmol/L 133-145 [facility] White blood cell (WBC) count Ordered By: Pepe Au on 03-28-2025 WBC (Bld) [#/Vol] 8.2 10*3/uL 4.4-11.0 [facility] Absolute lymphocyte countOrd ered By: Pepe Au on 02-26-2025 Lymphocytes Auto (Unsp spec) [#/Vol] 1.72 10*3/uL 0.83-4.[address] [facility] Absolute neutrophil countOrd ered By: Pepe Au on 02-26-2025 Neutrophils (Bld) [#/Vol] 5.7 10*3/uL 2.0-7.[address] [facility] Anion gap in Serum or Plasma Ordered By: Pepe Au on 02-26-2025 Anion gap [Moles/Vol] 16 mmol/L High 5-15 [facility] Automated lymphocyte count a s percentage of total leukocytesOrdered By: Pepe Au on 02-26-2025 Lymphocytes/100 WBC Auto (Unsp spec) 21.0 % 19-[address] [facility] BUN/creatinine ratioOrdered By: Pepe Au on 02-26-2025 Urea nitrogen/Creatinine [Mass ratio] 18.1 mg/mg 10-[address] [facility] Basophil percentageOrdered B y: Pepe Au on 02-26-2025 Basophils/100 WBC (Bld) 0.4 % 0-1 [facility] Calculated total iron bindin g capacityOrdered By: Pepe Au on 02-26-2025 Total Iron Binding Capacity 218 ug/dL Low 250-[address] [facility] Carbon dioxide, total [Moles /volume] in Central venous bloodOrdered By: Pepe Au on 02-26-2025 CO2 [Moles/Vol] 19.8 mmol/L Low 21.0-32.[address] [facility] Chloride assayOrdered By: Chaim Au on 02-26-2025 Chloride [Moles/Vol] 107 mmol/L 98-108 [facility] Eosinophil percentageOrdered By: Pepe Au on 02-26-2025 Eosinophils/100 WBC (Bld) 2.3 % 0-[address] [facility] Erythrocyte distribution wid th (RBC) [Ratio]Ordered By: Pepe Au on 02-26-2025 Erythrocyte distribution width (RBC) [Entitic vol] 49.2 fL High 35.1-43.[address] [facility] Erythrocyte distribution wid th ratioOrdered By: Pepe Au on 02-26-2025 Erythrocyte distribution width (RBC) [Ratio] 13.6 % 11.6-14.[address] [facility] Erythrocyte distribution wid th standard deviationOrdered By: Pepe Au on 02-26-2025 Erythrocyte distribution width (RBC) [Ratio] 49.2 fl High 35.1-43.[address] [facility] GFR/1.73 sq M.predicted henry g non-blacks MDRD (S/P/Bld) [Vol rate/Area]Ordered By: Pepe Au on 02-26-2025 Estimated GFR (MDRD) Non-Af Amer 25 Low >[address] [facility] Comment on above: mL/min/1.73m2 CKD-EP I Creatinine Equation (2020) Glomerular filtration rate ( GFR) estimation/1.73 sq m using serum, plasma, or whole bOrdered By: Pepe Au on 02-26-2025 GFR/1.73 sq M.predicted among non-blacks MDRD (S/P/Bld) [Vol rate/Area] 25 mL/min/{1.73_m2} Low >[address] [facility] Comment on above: mL/min/1.73m2 CKD-EP I Creatinine Equation (2020) Hematocrit Auto (Bld) [Volum e fraction]Ordered By: Pepe Au on 02-26-2025 Hematocrit (Bld) [Volume fraction] 35.4 % Low 40-[address] [facility] Hemoglobin measurementOrdere d By: Pepe Au on 02-26-2025 Hemoglobin (Bld) [Mass/Vol] 11.3 g/dL Low 13.0-16.[address] [facility] Immature granulocytes/100 WB C Auto (Bld)Ordered By: Pepe Au on 02-26-2025 Immature granulocytes/100 WBC (Bld) 0.200 % 0.0-0.[address] [facility] Comment on above: IG% - Immature Granu locytes (promyelocytes, myelocytes and metamyelocytes) > 1% indicates that a LEFT SHIFT is Present. Iron (Unsp spec) [Mass/Mass] Ordered By: Pepe Au on 02-26-2025 Iron [Mass/Vol] 75 ug/dL 65-[address] [facility] Iron measurement (mass/mass) Ordered By: Pepe Au on 02-26-2025 Iron (Unsp spec) [Mass/Mass] 75 ug/dL 65-[address] [facility] Iron saturation [Mass fracti on]Ordered By: Pepe Au on 02-26-2025 Iron Saturation 34.4 % 9-[address] [facility] Comment on above: Previous reported re sult: 34.0 %Edited by: JUSTIN on 02/26/25:1611 AMENDED REPORT 02/26/25 1611 IRON SATURATION previously reported as: 34.0 % Lymphocytes Auto (Unsp spec) [#/Vol]Ordered By: Pepe Au on 02-26-2025 Lymphocytes (Bld) [#/Vol] 1.72 10*3/uL 0.83-4.[address] [facility] Lymphocytes/100 WBC Auto (Un sp spec)Ordered By: Pepe Au on 02-26-2025 Lymphocytes/100 WBC (Bld) 21.0 % 19-[address] [facility] MCV (mean corpuscular volume ) determinationOrdered By: Pepe Au on 02-26-2025 MCV (RBC) [Entitic vol] 98.9 fL High 80-94 [facility] Mean corpuscular hemoglobin (MCH) determinationOrdered By: Pepe Au on 02-26-2025 MCH (RBC) [Entitic mass] 31.6 pg 27.0-32.[address] [facility] Mean corpuscular hemoglobin concentration (MCHC) determinationOrdered By: Pepe Au on 02-26-2025 MCHC (RBC) [Mass/Vol] 31.9 g/dL Low 32-36 [facility] Mean platelet volume determi nationOrdered By: Pepe Au on 02-26-2025 Platelet mean volume (Bld) [Entitic vol] 10.8 fL 6.2-12.[address] [facility] Monocyte percentageOrdered B y: Pepe Au on 02-26-2025 Monocytes/100 WBC (Bld) 7.0 % 0-10 [facility] Neutrophil percentageOrdered By: Pepe Au on 02-26-2025 Neutrophils/100 WBC (Bld) 69.1 % 47-[address] [facility] No Panel InformationOrdered By: Pepe Au on 02-26-2025 Unsaturated Iron Binding Capacity 143 ug/dL Low 228-[address] [facility] Nucleated red blood cell per centageOrdered By: Pepe Au on 02-26-2025 Nucleated RBC/100 WBC (Bld) [Ratio] 0 % 0-[address] [facility] PTH intactOrdered By: Paula Au on 02-26-2025 Parathyroid Hormone (Intact) 49 pg/mL 11-[address] [facility] Platelet countOrdered By: Chaim Au on 02-26-2025 Platelets (Bld) [#/Vol] 114 10*3/uL Low 150-[address] [facility] Potassium (Unsp spec) [Mass/ Vol]Ordered By: Pepe Au on 02-26-2025 Potassium [Moles/Vol] 4.8 mmol/L 3.3-5.1 [facility] Potassium measurement (mass/ volume)Ordered By: Pepe Au on 02-26-2025 Potassium (Unsp spec) [Mass/Vol] 4.8 mmol/L 3.3-5.[address] [facility] RBC Auto (Bld) [#/Vol]Ordere d By: Pepe Au on 02-26-2025 RBC (Bld) [#/Vol] 3.58 10*6/uL Low 4.6-6.2 [facility] Serum creatinine measurement (mass/volume)Ordered By: Pepe Au on 02-26-2025 Creatinine [Mass/Vol] 2.48 mg/dL High 0.70-1.20 [facility] Serum glucose measurement (m ass/volume)Ordered By: Pepe Au on 02-26-2025 Glucose [Mass/Vol] 136 mg/dL High 70-99 [facility] Serum or plasma albumin aubree urement (mass/volume)Ordered By: Pepe Au on 02-26-2025 Albumin [Mass/Vol] 3.7 g/dL 3.4-4.8 [facility] Serum or plasma calcium aubree urement (mass/volume)Ordered By: Pepe Au on 02-26-2025 Calcium [Mass/Vol] 9.0 mg/dL 7.6-11.0 [facility] Serum or plasma ferritin laurie surement (mass/volume)Ordered By: Pepe Au on 02-26-2025 Ferritin [Mass/Vol] 223 ng/mL 37-417 [facility] Serum or plasma iron saturat ion measurement (mass fraction)Ordered By: Pepe Au on 02-26-2025 Iron saturation [Mass fraction] 34.4 % 9-[address] [facility] Comment on above: Previous reported re sult: 34.0 %Edited by: JUSTIN on 02/26/25:1611 AMENDED REPORT 02/26/25 1611 IRON SATURATION previously reported as: 34.0 % Serum or plasma urea nitroge n measurement (mass/volume)Ordered By: Pepe Au on 02-26-2025 Urea nitrogen [Mass/Vol] 45 mg/dL High 4-[address] [facility] Serum phosphorus measurement Ordered By: Pepe Au on 02-26-2025 Phosphorus Level 3.2 mg/dL 2.7-4.[address] [facility] Sodium levelOrdered By: Lety Au on 02-26-2025 Sodium [Moles/Vol] 143 mmol/L 133-145 [facility] White blood cell (WBC) count Ordered By: Pepe Au on 02-26-2025 WBC (Bld) [#/Vol] 8.2 10*3/uL 4.4-11.0 [facility] Absolute lymphocyte countOrd ered By: Pepe Au on 01-29-2025 Lymphocytes Auto (Unsp spec) [#/Vol] 1.70 10*3/uL 0.83-4.[address] [facility] Absolute neutrophil countOrd ered By: Pepe Au on 01-29-2025 Neutrophils (Bld) [#/Vol] 8.4 10*3/uL High 2.0-7.[address] [facility] Anion gap in Serum or Plasma Ordered By: Pepe Au on 01-29-2025 Anion gap [Moles/Vol] 14 mmol/L 5-15 [facility] Automated lymphocyte count a s percentage of total leukocytesOrdered By: Pepe Au on 01-29-2025 Lymphocytes/100 WBC Auto (Unsp spec) 15.5 % Low 19-41 [facility] BUN/creatinine ratioOrdered By: Pepe Au on 01-29-2025 Urea nitrogen/Creatinine [Mass ratio] 20.8 mg/mg High 10-[address] [facility] Basophil percentageOrdered B y: Pepe Au on 01-29-2025 Basophils/100 WBC (Bld) 0.3 % 0-1 [facility] Calculated total iron bindin g capacityOrdered By: Pepe Au on 01-29-2025 Total Iron Binding Capacity 242 ug/dL Low 250-[address] [facility] Carbon dioxide, total [Moles /volume] in Central venous bloodOrdered By: Pepe Au on 01-29-2025 CO2 [Moles/Vol] 21.4 mmol/L 21.0-32.[address] [facility] Chloride assayOrdered By: Chaim Au on 01-29-2025 Chloride [Moles/Vol] 106 mmol/L 98-108 [facility] Eosinophil percentageOrdered By: Pepe Au on 01-29-2025 Eosinophils/100 WBC (Bld) 1.0 % 0-[address] [facility] Erythrocyte distribution wid th (RBC) [Ratio]Ordered By: Pepe Au on 01-29-2025 Erythrocyte distribution width (RBC) [Entitic vol] 45.9 fL High 35.1-43.[address] [facility] Erythrocyte distribution wid th ratioOrdered By: Pepe Au on 01-29-2025 Erythrocyte distribution width (RBC) [Ratio] 12.9 % 11.6-14.[address] [facility] Erythrocyte distribution wid th standard deviationOrdered By: Pepe Au on 01-29-2025 Erythrocyte distribution width (RBC) [Ratio] 45.9 fl High 35.1-43.[address] [facility] GFR/1.73 sq M.predicted henry g non-blacks MDRD (S/P/Bld) [Vol rate/Area]Ordered By: Pepe Au on 01-29-2025 Estimated GFR (MDRD) Non-Af Amer 24 Low >[address] [facility] Comment on above: mL/min/1.73m2 CKD-EP I Creatinine Equation (2020) Glomerular filtration rate ( GFR) estimation/1.73 sq m using serum, plasma, or whole bOrdered By: Pepe Au on 01-29-2025 GFR/1.73 sq M.predicted among non-blacks MDRD (S/P/Bld) [Vol rate/Area] 24 mL/min/{1.73_m2} Low >[address] [facility] Comment on above: mL/min/1.73m2 CKD-EP I Creatinine Equation (2020) Hematocrit Auto (Bld) [Volum e fraction]Ordered By: Pepe uA on 01-29-2025 Hematocrit (Bld) [Volume fraction] 37.9 % Low 40-[address] [facility] Hemoglobin measurementOrdere d By: Pepe Au on 01-29-2025 Hemoglobin (Bld) [Mass/Vol] 12.3 g/dL Low 13.0-16.[address] [facility] Immature granulocytes/100 WB C Auto (Bld)Ordered By: Pepe Au on 01-29-2025 Immature granulocytes/100 WBC (Bld) 0.400 % 0.0-0.[address] [facility] Comment on above: IG% - Immature Granu locytes (promyelocytes, myelocytes and metamyelocytes) > 1% indicates that a LEFT SHIFT is Present. Iron (Unsp spec) [Mass/Mass] Ordered By: Pepe Au on 01-29-2025 Iron [Mass/Vol] 84 ug/dL 65-[address] [facility] Iron measurement (mass/mass) Ordered By: Pepe Au on 01-29-2025 Iron (Unsp spec) [Mass/Mass] 84 ug/dL 65-[address] [facility] Iron saturation [Mass fracti on]Ordered By: Pepe Au on 01-29-2025 Iron Saturation 35.0 % 15.0-55.[address] [facility] Lymphocytes Auto (Unsp spec) [#/Vol]Ordered By: Pepe Au on 01-29-2025 Lymphocytes (Bld) [#/Vol] 1.70 10*3/uL 0.83-4.[address] [facility] Lymphocytes/100 WBC Auto (Un sp spec)Ordered By: Pepe Au on 01-29-2025 Lymphocytes/100 WBC (Bld) 15.5 % Low 19-[address] [facility] MCV (mean corpuscular volume ) determinationOrdered By: Pepe Au on 01-29-2025 MCV (RBC) [Entitic vol] 98.2 fL High 80-94 [facility] Mean corpuscular hemoglobin (MCH) determinationOrdered By: Pepe Au on 01-29-2025 MCH (RBC) [Entitic mass] 31.9 pg 27.0-32.[address] [facility] Mean corpuscular hemoglobin concentration (MCHC) determinationOrdered By: Pepe Au on 01-29-2025 MCHC (RBC) [Mass/Vol] 32.5 g/dL 32-36 [facility] Mean platelet volume determi nationOrdered By: Pepe Au on 01-29-2025 Platelet mean volume (Bld) [Entitic vol] 11.5 fL 6.2-12.[address] [facility] Monocyte percentageOrdered B y: Pepe Au on 01-29-2025 Monocytes/100 WBC (Bld) 6.5 % 0-10 [facility] Neutrophil percentageOrdered By: Pepe Au on 01-29-2025 Neutrophils/100 WBC (Bld) 76.3 % High 47-[address] [facility] No Panel InformationOrdered By: Pepe Au on 01-29-2025 Unsaturated Iron Binding Capacity 158 ug/dL Low 228-[address] [facility] Nucleated red blood cell per centageOrdered By: Pepe uA on 01-29-2025 Nucleated RBC/100 WBC (Bld) [Ratio] 0 % 0-[address] [facility] PTH intactOrdered By: Paula Au on 01-29-2025 Parathyroid Hormone (Intact) 30 pg/mL 11-[address] [facility] Platelet countOrdered By: Chaim Au on 01-29-2025 Platelets (Bld) [#/Vol] 115 10*3/uL Low 150-[address] [facility] Potassium (Unsp spec) [Mass/ Vol]Ordered By: Pepe Au on 01-29-2025 Potassium [Moles/Vol] 4.4 mmol/L 3.3-5.1 [facility] Potassium measurement (mass/ volume)Ordered By: Pepe Au on 01-29-2025 Potassium (Unsp spec) [Mass/Vol] 4.4 mmol/L 3.3-5.[address] [facility] RBC Auto (Bld) [#/Vol]Ordere d By: Pepe Au on 01-29-2025 RBC (Bld) [#/Vol] 3.86 10*6/uL Low 4.6-6.2 [facility] Serum creatinine measurement (mass/volume)Ordered By: Pepe Au on 01-29-2025 Creatinine [Mass/Vol] 2.59 mg/dL High 0.70-1.20 [facility] Serum glucose measurement (m ass/volume)Ordered By: Pepe Au on 01-29-2025 Glucose [Mass/Vol] 110 mg/dL High 70-99 [facility] Serum or plasma albumin aubree urement (mass/volume)Ordered By: Pepe Au on 01-29-2025 Albumin [Mass/Vol] 4.0 g/dL 3.4-4.8 [facility] Serum or plasma calcium aubree urement (mass/volume)Ordered By: Pepe Au on 01-29-2025 Calcium [Mass/Vol] 9.8 mg/dL 7.6-11.0 [facility] Serum or plasma ferritin laurie surement (mass/volume)Ordered By: Pepe Au on 01-29-2025 Ferritin [Mass/Vol] 252 ng/mL 37-417 [facility] Serum or plasma iron saturat ion measurement (mass fraction)Ordered By: Pepe Au on 01-29-2025 Iron saturation [Mass fraction] 35.0 % 15.0-55.[address] [facility] Serum or plasma urea nitroge n measurement (mass/volume)Ordered By: Pepe Au on 01-29-2025 Urea nitrogen [Mass/Vol] 54 mg/dL High 4-[address] [facility] Serum phosphorus measurement Ordered By: Pepe Au on 01-29-2025 Phosphorus Level 3.1 mg/dL 2.7-4.[address] [facility] Sodium levelOrdered By: Lety Au on 01-29-2025 Sodium [Moles/Vol] 141 mmol/L 133-145 [facility] White blood cell (WBC) count Ordered By: Pepe Au on 01-29-2025 WBC (Bld) [#/Vol] 11.0 10*3/uL 4.4-11.0 [facility] Absolute lymphocyte countOrd ered By: Pepe Au on 01-01-2025 Lymphocytes Auto (Unsp spec) [#/Vol] 1.90 10*3/uL 0.83-4.[address] [facility] Absolute neutrophil countOrd ered By: Pepe Au on 01-01-2025 Neutrophils (Bld) [#/Vol] 5.0 10*3/uL 2.0-7.[address] [facility] Automated lymphocyte count a s percentage of total leukocytesOrdered By: Pepe Au on 01-01-2025 Lymphocytes/100 WBC Auto (Unsp spec) 24.6 % 19-[address] [facility] Basophil percentageOrdered B y: Pepe Au on 01-01-2025 Basophils/100 WBC (Bld) 0.5 % 0-1 [facility] Blood urea nitrogen (BUN)/cr eatinine ratioOrdered By: Pepe Au on 01-01-2025 Urea nitrogen/Creatinine [Mass ratio] 19.0 mg/mg 10-[address] [facility] Carbon dioxide measurementOr dered By: Pepe Au on 01-01-2025 CO2 [Moles/Vol] 28.0 mmol/L 21.0-32.[address] [facility] Chloride measurementOrdered By: Pepe Au on 01-01-2025 Chloride [Moles/Vol] 110 mmol/L High 98-107 [facility] Eosinophil percentageOrdered By: Pepe Au on 01-01-2025 Eosinophils/100 WBC (Bld) 2.3 % 0-[address] [facility] Erythrocyte distribution wid th (RBC) [Ratio]Ordered By: Pepe Au on 01-01-2025 Erythrocyte distribution width (RBC) [Entitic vol] 49.0 fL High 35.1-43.[address] [facility] Erythrocyte distribution wid th ratioOrdered By: Pepe Au on 01-01-2025 Erythrocyte distribution width (RBC) [Ratio] 13.2 % 11.6-14.[address] [facility] Erythrocyte distribution wid th standard deviationOrdered By: Pepe Au on 01-01-2025 Erythrocyte distribution width (RBC) [Ratio] 49.0 fl High 35.1-43.[address] [facility] Estimated glomerular filtrat ion rate (GFR) AmericanOrdered By: Pepe Au on 01-01-2025 Estimated GFR (MDRD) Amer 31 mL/min Low >[address] [facility] Comment on above: GFR Calc Ferritin measurementOrdered By: Pepe Au on 01-01-2025 Ferritin [Mass/Vol] 152 ng/mL 26-388 [facility] Glomerular filtration rate ( GFR) estimationOrdered By: Pepe Au on 01-01-2025 Estimated GFR (MDRD) Non-Af Amer 25 mL/min Low >[address] [facility] Comment on above: Non- GFR Calc GFR/1.73 sq M.predicted among non-blacks MDRD (S/P/Bld) [Vol rate/Area] 25 mL/min/{1.73_m2} Low >[address] [facility] Comment on above: Non- GFR Calc Glucose measurementOrdered B y: Pepe Au on 01-01-2025 Glucose [Mass/Vol] 124 mg/dL High 74-106 [facility] Comment on above: Fasting Glucose resu lt from 100 to 125 mg/dL suggests IMPAIRED HOMEOSTASIS per A.D.A. criteria. Hematocrit Auto (Bld) [Volum e fraction]Ordered By: Pepe Au on 01-01-2025 Hematocrit (Bld) [Volume fraction] 35.8 % Low 40-[address] [facility] Hemoglobin measurementOrdere d By: Pepe Au on 01-01-2025 Hemoglobin (Bld) [Mass/Vol] 11.5 g/dL Low 13.0-16.[address] [facility] Immature granulocytes/100 WB C Auto (Bld)Ordered By: Pepe Au on 01-01-2025 Immature granulocytes/100 WBC (Bld) 0.400 % 0.0-0.[address] [facility] Comment on above: IG% - Immature Granu locytes (promyelocytes, myelocytes and metamyelocytes) > 1% indicates that a LEFT SHIFT is Present. Iron (Unsp spec) [Mass/Mass] Ordered By: Pepe Au on 01-01-2025 Iron [Mass/Vol] 53 ug/dL Low 65-[address] [facility] Iron measurement (mass/mass) Ordered By: Pepe Au on 01-01-2025 Iron (Unsp spec) [Mass/Mass] 53 ug/dL Low 65-[address] [facility] Iron saturation [Mass fracti on]Ordered By: Pepe Au on 01-01-2025 Iron Saturation 25.1 % 15.0-55.[address] [facility] Lymphocytes Auto (Unsp spec) [#/Vol]Ordered By: Pepe Au on 01-01-2025 Lymphocytes (Bld) [#/Vol] 1.90 10*3/uL 0.83-4.[address] [facility] Lymphocytes/100 WBC Auto (Un sp spec)Ordered By: Pepe Au on 01-01-2025 Lymphocytes/100 WBC (Bld) 24.6 % 19-[address] [facility] MCV (mean corpuscular volume ) determinationOrdered By: Pepe Au on 01-01-2025 MCV (RBC) [Entitic vol] 100.3 fL High 80-94 [facility] Mean corpuscular hemoglobin (MCH) determinationOrdered By: Pepe Au on 01-01-2025 MCH (RBC) [Entitic mass] 32.2 pg High 27.0-32.[address] [facility] Mean corpuscular hemoglobin concentration (MCHC) determinationOrdered By: Pepe Au on 01-01-2025 MCHC (RBC) [Mass/Vol] 32.1 g/dL 32-36 [facility] Mean platelet volume determi nationOrdered By: Pepe Au on 01-01-2025 Platelet mean volume (Bld) [Entitic vol] 10.5 fL 6.2-12.[address] [facility] Monocyte percentageOrdered B y: Pepe Au on 01-01-2025 Monocytes/100 WBC (Bld) 7.0 % 0-10 [facility] Neutrophil percentageOrdered By: Pepe Au on 01-01-2025 Neutrophils/100 WBC (Bld) 65.2 % 47-[address] [facility] Nucleated red blood cell per centageOrdered By: Pepe Au on 01-01-2025 Nucleated RBC/100 WBC (Bld) [Ratio] 0 % 0-[address] [facility] Phosphorus measurementOrdere d By: Pepe Au on 01-01-2025 Phosphorus Level 3.4 mg/dL 2.5-4.[address] [facility] Platelet countOrdered By: Chaim Au on 01-01-2025 Platelets (Bld) [#/Vol] 105 10*3/uL Low 150-[address] [facility] Potassium measurementOrdered By: Pepe Au on 01-01-2025 Potassium [Moles/Vol] 4.8 mmol/L 3.5-5.1 [facility] RBC Auto (Bld) [#/Vol]Ordere d By: Pepe Au on 01-01-2025 RBC (Bld) [#/Vol] 3.57 10*6/uL Low 4.6-6.2 [facility] Serum or plasma albumin aubree urement (mass/volume)Ordered By: Pepe Au on 01-01-2025 Albumin [Mass/Vol] 3.4 g/dL 3.2-5.0 [facility] Serum or plasma calcium aubree urement (mass/volume)Ordered By: Pepe Au on 01-01-2025 Calcium [Mass/Vol] 10.2 mg/dL High 8.5-10.1 [facility] Serum or plasma creatinine m easurement (mass/volume)Ordered By: Pepe Au on 01-01-2025 Creatinine [Mass/Vol] 2.58 mg/dL High 0.70-1.30 [facility] Comment on above: The validity of the calculated GFR & GFRAA in patients over 70 years has not been determined. Clinical correlation is essential. Serum or plasma iron saturat ion measurement (mass fraction)Ordered By: Pepe Au on 01-01-2025 Iron saturation [Mass fraction] 25.1 % 15.0-55.[address] [facility] Serum or plasma urea nitroge n measurement (mass/volume)Ordered By: Pepe Au on 01-01-2025 Urea nitrogen [Mass/Vol] 49 mg/dL High 7-[address] [facility] Sodium levelOrdered By: Lety Au on 01-01-2025 Sodium [Moles/Vol] 142 mmol/L 136-145 [facility] TIBCOrdered By: Pepe coley on 01-01-2025 Total Iron Binding Capacity 211 ug/dL Low 250-[address] [facility] White blood cell (WBC) count Ordered By: Pepe Au on 01-01-2025 WBC (Bld) [#/Vol] 7.7 10*3/uL 4.4-11.0 [facility] Absolute neutrophil countOrd ered By: Pepe Au on 12-04-2024 Neutrophils (Bld) [#/Vol] 4.9 10*3/uL 2.0-7.[address] [facility] Basophil percentageOrdered B y: Pepe Au on 12-04-2024 Basophils/100 WBC (Bld) 0.5 % 0-1 [facility] Blood urea nitrogen (BUN)/cr eatinine ratioOrdered By: Pepe Au on 12-04-2024 Urea nitrogen/Creatinine [Mass ratio] 18.9 mg/mg 10-[address] [facility] Carbon dioxide measurementOr dered By: Pepe Au on 12-04-2024 CO2 [Moles/Vol] 24.0 mmol/L 21.0-32.[address] [facility] Chloride measurementOrdered By: Pepe Au on 12-04-2024 Chloride [Moles/Vol] 116 mmol/L High 98-107 [facility] Eosinophil percentageOrdered By: Pepe Au on 12-04-2024 Eosinophils/100 WBC (Bld) 2.8 % 0-[address] [facility] Erythrocyte distribution wid th (RBC) [Ratio]Ordered By: Pepe Au on 12-04-2024 Erythrocyte distribution width (RBC) [Entitic vol] 54.9 fL High 35.1-43.[address] [facility] Erythrocyte distribution wid th ratioOrdered By: Pepe Au on 12-04-2024 Erythrocyte distribution width (RBC) [Ratio] 14.7 % High 11.6-14.[address] [facility] Estimated glomerular filtrat ion rate (GFR) AmericanOrdered By: Pepe Au on 12-04-2024 Estimated GFR (MDRD) Amer 31 mL/min Low >[address] [facility] Comment on above: GFR Calc Ferritin measurementOrdered By: Pepe Au on 12-04-2024 Ferritin [Mass/Vol] 140 ng/mL 26-388 [facility] Glomerular filtration rate ( GFR) estimationOrdered By: Pepe Au on 12-04-2024 Estimated GFR (MDRD) Non-Af Amer 26 mL/min Low >[address] [facility] Comment on above: Non- GFR Calc Glucose measurementOrdered B y: Pepe Au on 12-04-2024 Glucose [Mass/Vol] 128 mg/dL High 74-106 [facility] Comment on above: Fasting Glucose resu lt greater than or equal to 126 mg/dL suggests DIABETES MELLITUS per A.D.A. criteria. Hematocrit Auto (Bld) [Volum e fraction]Ordered By: Pepe Au on 12-04-2024 Hematocrit (Bld) [Volume fraction] 36.7 % Low 40-[address] [facility] Hemoglobin measurementOrdere d By: Pepe Au on 12-04-2024 Hemoglobin (Bld) [Mass/Vol] 11.6 g/dL Low 13.0-16.[address] [facility] Immature granulocytes/100 WB C Auto (Bld)Ordered By: Pepe Au on 12-04-2024 Immature granulocytes/100 WBC (Bld) 0.400 % 0.0-0.[address] [facility] Comment on above: IG% - Immature Granu locytes (promyelocytes, myelocytes and metamyelocytes) > 1% indicates that a LEFT SHIFT is Present. Iron (Unsp spec) [Mass/Mass] Ordered By: Pepe Au on 12-04-2024 Iron [Mass/Vol] 77 ug/dL 65-[address] [facility] Iron saturation [Mass fracti on]Ordered By: Pepe Au on 12-04-2024 Iron Saturation 32.0 % 15.0-55.[address] [facility] Lymphocytes Auto (Unsp spec) [#/Vol]Ordered By: Pepe Au on 12-04-2024 Lymphocytes (Bld) [#/Vol] 1.91 10*3/uL 0.83-4.[address] [facility] Lymphocytes/100 WBC Auto (Un sp spec)Ordered By: Pepe Au on 12-04-2024 Lymphocytes/100 WBC (Bld) 25.4 % 19-[address] [facility] MCV (mean corpuscular volume ) determinationOrdered By: Pepe Au on 12-04-2024 MCV (RBC) [Entitic vol] 101.7 fL High 80-94 [facility] Mean corpuscular hemoglobin (MCH) determinationOrdered By: Pepe Au on 12-04-2024 MCH (RBC) [Entitic mass] 32.1 pg High 27.0-32.[address] [facility] Mean corpuscular hemoglobin concentration (MCHC) determinationOrdered By: Pepe Au on 12-04-2024 MCHC (RBC) [Mass/Vol] 31.6 g/dL Low 32-36 [facility] Mean platelet volume determi nationOrdered By: Pepe Au on 12-04-2024 Platelet mean volume (Bld) [Entitic vol] 10.7 fL 6.2-12.[address] [facility] Monocyte percentageOrdered B y: Pepe Au on 12-04-2024 Monocytes/100 WBC (Bld) 6.4 % 0-10 [facility] Neutrophil percentageOrdered By: Pepe Au on 12-04-2024 Neutrophils/100 WBC (Bld) 64.5 % 47-[address] [facility] Nucleated red blood cell per centageOrdered By: Pepe Au on 12-04-2024 Nucleated RBC/100 WBC (Bld) [Ratio] 0 % 0-[address] [facility] Phosphorus measurementOrdere d By: Pepe Au on 12-04-2024 Phosphorus Level 3.2 mg/dL 2.5-4.[address] [facility] Platelet countOrdered By: Chaim Au on 12-04-2024 Platelets (Bld) [#/Vol] 117 10*3/uL Low 150-[address] [facility] Potassium measurementOrdered By: Pepe Au on 12-04-2024 Potassium [Moles/Vol] 5.0 mmol/L 3.5-5.1 [facility] RBC Auto (Bld) [#/Vol]Ordere d By: Pepe Au on 12-04-2024 RBC (Bld) [#/Vol] 3.61 10*6/uL Low 4.6-6.2 [facility] Serum or plasma albumin uabree urement (mass/volume)Ordered By: Pepe Au on 12-04-2024 Albumin [Mass/Vol] 3.5 g/dL 3.2-5.0 [facility] Serum or plasma calcium aubree urement (mass/volume)Ordered By: Pepe Au on 12-04-2024 Calcium [Mass/Vol] 9.6 mg/dL 8.5-10.1 [facility] Serum or plasma creatinine m easurement (mass/volume)Ordered By: Pepe Au on 12-04-2024 Creatinine [Mass/Vol] 2.54 mg/dL High 0.70-1.30 [facility] Comment on above: The validity of the calculated GFR & GFRAA in patients over 70 years has not been determined. Clinical correlation is essential. Serum or plasma urea nitroge n measurement (mass/volume)Ordered By: Pepe Au on 12-04-2024 Urea nitrogen [Mass/Vol] 48 mg/dL High 7-[address] [facility] Sodium levelOrdered By: Lety Au on 12-04-2024 Sodium [Moles/Vol] 143 mmol/L 136-145 [facility] TIBCOrdered By: Pepe coley on 12-04-2024 Total Iron Binding Capacity 241 ug/dL Low 250-[address] [facility] White blood cell (WBC) count Ordered By: Pepe Au on 12-04-2024 WBC (Bld) [#/Vol] 7.5 10*3/uL 4.4-11.0 [facility] Absolute neutrophil countOrd ered By: Pepe Au on 10-31-2024 Neutrophils (Bld) [#/Vol] 4.2 10*3/uL 2.0-7.[address] [facility] Basophil percentageOrdered B y: Pepe Au on 10-31-2024 Basophils/100 WBC (Bld) 0.3 % 0-1 [facility] Blood urea nitrogen (BUN)/cr eatinine ratioOrdered By: Pepe Au on 10-31-2024 Urea nitrogen/Creatinine [Mass ratio] 27.8 mg/mg High 10-[address] [facility] Carbon dioxide measurementOr dered By: Pepe Au on 10-31-2024 CO2 [Moles/Vol] 24.0 mmol/L 21.0-32.[address] [facility] Chloride measurementOrdered By: Pepe Au on 10-31-2024 Chloride [Moles/Vol] 113 mmol/L High 98-107 [facility] Eosinophil percentageOrdered By: Pepe Au on 10-31-2024 Eosinophils/100 WBC (Bld) 4.2 % 0-[address] [facility] Erythrocyte distribution wid th (RBC) [Ratio]Ordered By: Pepe Au on 10-31-2024 Erythrocyte distribution width (RBC) [Entitic vol] 51.4 fL High 35.1-43.[address] [facility] Erythrocyte distribution wid th ratioOrdered By: Pepe Au on 10-31-2024 Erythrocyte distribution width (RBC) [Ratio] 14.3 % 11.6-14.[address] [facility] Estimated glomerular filtrat ion rate (GFR) AmericanOrdered By: Pepe Au on 10-31-2024 Estimated GFR (MDRD) Amer 32 mL/min Low >[address] [facility] Comment on above: GFR Calc Ferritin measurementOrdered By: Pepe Au on 10-31-2024 Ferritin [Mass/Vol] 176 ng/mL 26-388 [facility] Glomerular filtration rate ( GFR) estimationOrdered By: Pepe Au on 10-31-2024 Estimated GFR (MDRD) Non-Af Amer 26 mL/min Low >[address] [facility] Comment on above: Non- GFR Calc Glucose measurementOrdered B y: Pepe Au on 10-31-2024 Glucose [Mass/Vol] 145 mg/dL High 74-106 [facility] Comment on above: Fasting Glucose resu lt greater than or equal to 126 mg/dL suggests DIABETES MELLITUS per A.D.A. criteria. Hematocrit Auto (Bld) [Volum e fraction]Ordered By: Pepe Au on 10-31-2024 Hematocrit (Bld) [Volume fraction] 33.6 % Low 40-[address] [facility] Hemoglobin measurementOrdere d By: Pepe Au on 10-31-2024 Hemoglobin (Bld) [Mass/Vol] 10.9 g/dL Low 13.0-16.[address] [facility] Immature granulocytes/100 WB C Auto (Bld)Ordered By: Pepe Au on 10-31-2024 Immature granulocytes/100 WBC (Bld) 0.600 % 0.0-0.[address] [facility] Comment on above: IG% - Immature Granu locytes (promyelocytes, myelocytes and metamyelocytes) > 1% indicates that a LEFT SHIFT is Present. Intact parathyroid hormone ( iPTH) measurementOrdered By: Pepe Au on 10-31-2024 Parathyroid Hormone (Intact) 16.0 pg/mL Low 18.4-80.[address] [facility] Iron (Unsp spec) [Mass/Mass] Ordered By: Pepe Au on 10-31-2024 Iron [Mass/Vol] 63 ug/dL Low 65-[address] [facility] Iron saturation [Mass fracti on]Ordered By: Pepe Au on 10-31-2024 Iron Saturation 26.7 % 15.0-55.[address] [facility] Lymphocytes Auto (Unsp spec) [#/Vol]Ordered By: Pepe Au on 10-31-2024 Lymphocytes (Bld) [#/Vol] 1.70 10*3/uL 0.83-4.[address] [facility] Lymphocytes/100 WBC Auto (Un sp spec)Ordered By: Pepe Au on 10-31-2024 Lymphocytes/100 WBC (Bld) 25.4 % 19-[address] [facility] MCV (mean corpuscular volume ) determinationOrdered By: Pepe Au on 10-31-2024 MCV (RBC) [Entitic vol] 99.4 fL High 80-94 [facility] Mean corpuscular hemoglobin (MCH) determinationOrdered By: Pepe Au on 10-31-2024 MCH (RBC) [Entitic mass] 32.2 pg High 27.0-32.[address] [facility] Mean corpuscular hemoglobin concentration (MCHC) determinationOrdered By: Pepe Au on 10-31-2024 MCHC (RBC) [Mass/Vol] 32.4 g/dL 32-36 [facility] Mean platelet volume determi nationOrdered By: Pepe Au on 10-31-2024 Platelet mean volume (Bld) [Entitic vol] 10.8 fL 6.2-12.[address] [facility] Monocyte percentageOrdered B y: Pepe Au on 10-31-2024 Monocytes/100 WBC (Bld) 6.4 % 0-10 [facility] Neutrophil percentageOrdered By: Pepe Au on 10-31-2024 Neutrophils/100 WBC (Bld) 63.1 % 47-[address] [facility] Nucleated red blood cell per centageOrdered By: Pepe Au on 10-31-2024 Nucleated RBC/100 WBC (Bld) [Ratio] 0 % 0-[address] [facility] Phosphorus measurementOrdere d By: Pepe Au on 10-31-2024 Phosphorus Level 3.5 mg/dL 2.5-4.[address] [facility] Platelet countOrdered By: Chaim Au on 10-31-2024 Platelets (Bld) [#/Vol] 133 10*3/uL Low 150-[address] [facility] Potassium measurementOrdered By: Pepe Au on 10-31-2024 Potassium [Moles/Vol] 4.4 mmol/L 3.5-5.1 [facility] RBC Auto (Bld) [#/Vol]Ordere d By: Pepe Au on 10-31-2024 RBC (Bld) [#/Vol] 3.38 10*6/uL Low 4.6-6.2 [facility] Serum or plasma albumin aubree urement (mass/volume)Ordered By: Pepe Au on 10-31-2024 Albumin [Mass/Vol] 3.4 g/dL 3.2-5.0 [facility] Serum or plasma calcium aubree urement (mass/volume)Ordered By: Pepe Au on 10-31-2024 Calcium [Mass/Vol] 9.7 mg/dL 8.5-10.1 [facility] Serum or plasma creatinine m easurement (mass/volume)Ordered By: Pepe Au on 10-31-2024 Creatinine [Mass/Vol] 2.52 mg/dL High 0.70-1.30 [facility] Comment on above: The validity of the calculated GFR & GFRAA in patients over 70 years has not been determined. Clinical correlation is essential. Serum or plasma urea nitroge n measurement (mass/volume)Ordered By: Pepe Au on 10-31-2024 Urea nitrogen [Mass/Vol] 70 mg/dL High 7-[address] [facility] Sodium levelOrdered By: Lety Au on 10-31-2024 Sodium [Moles/Vol] 143 mmol/L 136-145 [facility] TIBCOrdered By: Pepe coley on 10-31-2024 Total Iron Binding Capacity 236 ug/dL Low 250-[address] [facility] White blood cell (WBC) count Ordered By: Pepe Au on 10-31-2024 WBC (Bld) [#/Vol] 6.7 10*3/uL 4.4-11.0 [facility] Basophil percentageOrdered B y: Rios Downey on 03-22-2024 Bilirubin [Mass/Vol] 0.60 mg/dL 0.20-1.00 [facility] Comment on above: For patients on eltr ombopag therapy, use of Dimension [place] TBIL is not recommended. Chloride [Moles/Vol] 113 mmol/L 98-107 [facility] Cholesterol [Mass/Vol] 191 mg/dL <200 [facility] Comment on above: <200 mg/dL Desirable 200-240 mg/dL Borderline >240 mg/dL High Risk Glucose [Mass/Vol] 133 mg/dL 74-106 [facility] Comment on above: Fasting Glucose resu lt greater than or equal to 126 mg/dL suggests DIABETES MELLITUS per A.D.A. criteria. Hemoglobin (Bld) [Mass/Vol] 11.4 g/dL 13.0-16.[address] [facility] Potassium [Moles/Vol] 4.7 mmol/L 3.5-5.1 [facility] Protein [Mass/Vol] 7.4 g/dL 6.4-8.2 [facility] Sodium [Moles/Vol] 143 mmol/L 136-145 [facility] Triglyceride [Mass/Vol] 132 mg/dL <199 [facility] Comment on above: The drugs N-Acetylcy steine and Metamizole may falsely depress this assay.Serum Triglycerides Reference Interval Normal <150 mg/dL Borderline high 150 - 199 mg/dL High 200 - 499 mg/dL Very High > or = 500 mg/dL WBC (Bld) [#/Vol] 8.3 10*3/uL 4.4-11.0 [facility] Cholesterol in LDL Direct as say [Mass/Vol]Ordered By: Rios Downey on 03-22-2024 Cholesterol in LDL [Mass/Vol] 140 mg/dL 0-[address] [facility] Determination of erythrocyte mean corpuscular volume (MCV)Ordered By: Rios Downey on 03-22-2024 MCV (RBC) [Entitic vol] 96.2 fL 80-94 [facility] Erythrocyte distribution wid th ratioOrdered By: Rios Downey on 03-22-2024 Erythrocyte distribution width (RBC) [Ratio] 15.1 % 11.6-14.[address] [facility] Erythrocyte distribution wid th standard deviationOrdered By: Rios Downey on 03-22-2024 Erythrocyte distribution width (RBC) [Entitic vol] 52.4 fL 35.1-43.[address] [facility] Hematocrit Auto (Bld) [Volum e fraction]Ordered By: Rios Downey on 03-22-2024 Hematocrit (Bld) [Volume fraction] 35.8 % 40-[address] [facility] Laboratory - Chemistry and C hemistry - challengeOrdered By: Rios Downey on 03-22-2024 Albumin/Globulin [Mass ratio] 0.8 {ratio} 0.9-2.[address] [facility] ALP [Catalytic activity/Vol] 141 U/L 45-[address] [facility] ALT [Catalytic activity/Vol] 14 U/L 16-[address] [facility] Cholesterol in HDL [Mass/Vol] 33 mg/dL >[address] [facility] Comment on above: The drugs N-Acetylcy steine and Metamizole may falsely depress this assay. Reference Range HDL <40 mg/dL Low HDL Cholesterol HDL >or= 60 mg/dL High HDL Cholesterol Cholesterol in LDL [Mass/Vol] 132 mg/dL 0-[address] [facility] CO2 [Moles/Vol] 24.0 mmol/L 21.0-32.[address] [facility] Cobalamin (Vitamin B12) [Mass/Vol] 470 pg/mL 211-[address] [facility] Globulin (S) [Mass/Vol] 4.1 g/dL 2.2-4.2 [facility] Magnesium [Mass/Vol] 1.8 mg/dL 1.6-2.6 [facility] Urea nitrogen/Creatinine [Mass ratio] 18.2 mg/mg 10-[address] [facility] Laboratory - Hematology and Cell countsOrdered By: Rios Downey on 03-22-2024 MCH (RBC) [Entitic mass] 30.6 pg 27.0-32.[address] [facility] MCHC (RBC) [Mass/Vol] 31.8 g/dL 32-36 [facility] Platelet mean volume (Bld) [Entitic vol] 10.5 fL 6.2-12.[address] [facility] Platelets (Bld) [#/Vol] 138 10*3/uL 150-[address] [facility] Laboratory - Miscellaneous t estsOrdered By: Rios Downey on 03-22-2024 Service comment (Unsp spec) [Interp] TNP [facility] Comment on above: Test not performed No Panel InformationOrdered By: Rios Downey on 03-22-2024 Anti-Nuclear Antibody Screen Negative Negative [facility] Comment on above: Performed at: [employer] [place], [place] [id number] Director: Nabeel Ruff PhD, Phone: [phone] Estimated GFR (MDRD) Amer 37 mL/min >[address] [facility] Comment on above: GFR Calc Estimated GFR (MDRD) Non-Af Amer 31 mL/min >[address] [facility] Comment on above: Non- GFR Calc Folate 26.90 ng/mL 3.1-55.[address] [facility] Levetiracetam (Keppra) Level 55.2 ug/mL 10.0-40.[address] [facility] Comment on above: Performed at: [facility] [place], [place] [id number] Director: Nabeel Ruff PhD, Phone: [phone] at: [facility] - [facility] [address] [id number] Director: Suzy Adames MD, Phone: [phone] Vitamin D 25-Hydroxy 46.6 ng/mL [facility] Comment on above: Vitamin D 25(OH) Sta tus Range Deficiency <20 ng/mL (50nmol/L) Insufficiency 20 - 30 ng/mL (50 - 75 nmol/L) Sufficiency 30 - 100 ng/mL (75 - 250 nmol/L) Toxicity >100 ng/mL (>250 nmol/L) VLDL Cholesterol 26 mg/dL 5-[address] [facility] RBC Auto (Bld) [#/Vol]Ordere d By: Rios Downey on 03-22-2024 RBC (Bld) [#/Vol] 3.72 10*6/uL 4.6-6.2 [facility] Serum or plasma calcium aubree urement (mass/volume)Ordered By: Rios Downey on 03-22-2024 Calcium [Mass/Vol] 9.1 mg/dL 8.5-10.1 [facility] Serum or plasma creatinine m easurement (mass/volume)Ordered By: Rios Downey on 03-22-2024 Creatinine [Mass/Vol] 2.20 mg/dL 0.70-1.30 [facility] Comment on above: The validity of the calculated GFR & GFRAA in patients over 70 years has not been determined. Clinical correlation is essential. Serum or plasma thyroid stim ulating hormone (TSH) measurement (units/volume)Ordered By: Rios Downey on 03-22-2024 TSH Qn 6.21 uIU/mL 0.358-3.[address] [facility] [facility] Serum or plasma transthyreti n measurement (mass/volume)Ordered By: Rios Downey on 03-22-2024 Prealbumin [Mass/Vol] 19.8 mg/dL 20.0-40.0 [facility] Serum or plasma urea nitroge n measurement (mass/volume)Ordered By: Rios Downey on 03-22-2024 Urea nitrogen [Mass/Vol] 40 mg/dL 7-[address] [facility] Serum or plasma uric acid me asurement (mass/volume)Ordered By: Rios Downey on 03-22-2024 Urate [Mass/Vol] 5.5 mg/dL 3.5-7.[address] [facility] Comment on above: The drugs N-Acetylcy steine and Metamizole may falsely depress this assay. Thin prep Papanicolaou smear with manual screeningOrdered By: Rios Downey on 03-22-2024 Thin prep Papanicolaou smear with manual screening 3.3 g/dL 3.2-5.[address] [facility] Thin prep Papanicolaou smear with manual screening 17 U/L 15-[address] [facility] Thin prep Papanicolaou smear with manual screening 6 5-[address] [facility] Thin prep Papanicolaou smear with manual screening 0.59 ng/dL 0.76-1.[address] [facility] Whole blood hemoglobin A1c/t otal hemoglobin ratio (mass fraction)Ordered By: Rios Downey on 03-22-2024 HbA1c (Bld) [Mass fraction] 5.2 % 3.8-5.[address] [facility] Comment on above: Normal < 5.7 % Predi abetic 5.7 - 6.4 % Diabetic >or= 6.5 % Please note range changes. Absolute lymphocyte countOrd ered By: [facility] Au on 03-14-2024 Lymphocytes Auto (Unsp spec) [#/Vol] 1.98 10*3/uL 0.83-4.[address] [facility] Automated lymphocyte count a s percentage of total leukocytesOrdered By: Pepe Au on 03-14-2024 Lymphocytes/100 WBC Auto (Unsp spec) 25.4 % 19-[address] [facility] Basophil percentageOrdered B y: Pepe Au on 03-14-2024 Basophil percentage 2.4 mg/dL 2.5-4.9 [facility] Basophils/100 WBC (Bld) 0.6 % 0-1 [facility] Chloride [Moles/Vol] 112 mmol/L 98-107 [facility] Eosinophils/100 WBC (Bld) 3.9 % 0-[address] [facility] Glucose [Mass/Vol] 120 mg/dL 74-106 [facility] Comment on above: Fasting Glucose resu lt from 100 to 125 mg/dL suggests IMPAIRED HOMEOSTASIS per A.D.A. criteria. Hemoglobin (Bld) [Mass/Vol] 11.2 g/dL 13.0-16.[address] [facility] Monocytes/100 WBC (Bld) 6.9 % 0-10 [facility] Neutrophils (Bld) [#/Vol] 4.9 10*3/uL 2.0-7.[address] [facility] Neutrophils/100 WBC (Bld) 62.9 % 47-[address] [facility] Potassium [Moles/Vol] 4.3 mmol/L 3.5-5.1 [facility] Sodium [Moles/Vol] 140 mmol/L 136-145 [facility] WBC (Bld) [#/Vol] 7.8 10*3/uL 4.4-11.0 [facility] Determination of erythrocyte mean corpuscular volume (MCV)Ordered By: Pepe Au on 03-14-2024 MCV (RBC) [Entitic vol] 95.9 fL 80-94 [facility] Erythrocyte distribution wid th ratioOrdered By: Pepe Au on 03-14-2024 Erythrocyte distribution width (RBC) [Ratio] 14.7 % 11.6-14.[address] [facility] Erythrocyte distribution wid th standard deviationOrdered By: Pepe Au on 03-14-2024 Erythrocyte distribution width (RBC) [Entitic vol] 51.0 fL 35.1-43.[address] [facility] Hematocrit Auto (Bld) [Volum e fraction]Ordered By: Pepe Au on 03-14-2024 Hematocrit (Bld) [Volume fraction] 34.7 % 40-[address] [facility] Immature granulocytes/100 WB C Auto (Bld)Ordered By: Pepe Au on 03-14-2024 Immature granulocytes/100 WBC (Bld) 0.300 % 0.0-0.[address] [facility] Comment on above: IG% - Immature Granu locytes (promyelocytes, myelocytes and metamyelocytes) > 1% indicates that a LEFT SHIFT is Present. Iron measurement (mass/mass) Ordered By: Pepe Au on 03-14-2024 Iron (Unsp spec) [Mass/Mass] 66 ug/dL 65-[address] [facility] Laboratory - Chemistry and C hemistry - challengeOrdered By: Pepe Au on 03-14-2024 CO2 [Moles/Vol] 27.0 mmol/L 21.0-32.[address] [facility] Ferritin [Mass/Vol] 122 ng/mL 26-388 [facility] Urea nitrogen/Creatinine [Mass ratio] 22.7 mg/mg 10-[address] [facility] Laboratory - Hematology and Cell countsOrdered By: Pepe Au on 03-14-2024 MCH (RBC) [Entitic mass] 30.9 pg 27.0-32.[address] [facility] MCHC (RBC) [Mass/Vol] 32.3 g/dL 32-36 [facility] Nucleated RBC/100 WBC (Bld) [Ratio] 0 % 0-[address] [facility] Platelet mean volume (Bld) [Entitic vol] 10.3 fL 6.2-12.[address] [facility] Platelets (Bld) [#/Vol] 132 10*3/uL 150-[address] [facility] No Panel InformationOrdered By: Pepe Au on 03-14-2024 Estimated GFR (MDRD) Amer 41 mL/min >[address] [facility] Comment on above: GFR Calc Estimated GFR (MDRD) Non-Af Amer 34 mL/min >[address] [facility] Comment on above: Non- GFR Calc Total Iron Binding Capacity 197 ug/dL 250-[address] [facility] RBC Auto (Bld) [#/Vol]Ordere d By: Pepe Au on 03-14-2024 RBC (Bld) [#/Vol] 3.62 10*6/uL 4.6-6.2 [facility] Serum or plasma calcium aubree urement (mass/volume)Ordered By: Pepe Au on 03-14-2024 Calcium [Mass/Vol] 8.7 mg/dL 8.5-10.1 [facility] Serum or plasma creatinine m easurement (mass/volume)Ordered By: Pepe Au on 03-14-2024 Creatinine [Mass/Vol] 2.03 mg/dL 0.70-1.30 [facility] Comment on above: The validity of the calculated GFR & GFRAA in patients over 70 years has not been determined. Clinical correlation is essential. Serum or plasma iron saturat ion measurement (mass fraction)Ordered By: Pepe Au on 03-14-2024 Iron saturation [Mass fraction] 33.5 % 15.0-55.[address] [facility] Serum or plasma urea nitroge n measurement (mass/volume)Ordered By: Pepe Au on 03-14-2024 Urea nitrogen [Mass/Vol] 46 mg/dL 7-[address] [facility] Thin prep Papanicolaou smear with manual screeningOrdered By: [facility] Au on 03-14-2024 Thin prep Papanicolaou smear with manual screening 3.2 g/dL 3.2-5.[address] [facility] Absolute lymphocyte countOrd ered By: Cesar Medina on 02-19-2024 Lymphocytes Auto (Unsp spec) [#/Vol] 1.41 10*3/uL 0.83-4.[address] [facility] Automated lymphocyte count a s percentage of total leukocytesOrdered By: Cesar Medina on 02-19-2024 Lymphocytes/100 WBC Auto (Unsp spec) 23.0 % 19-[address] [facility] Basophil percentageOrdered B y: Cesar Medina on 02-19-2024 Basophil percentage 0 SEEN /hpf 0-5 [facility] Ammonia (P) [Moles/Vol] 20.0 umol/L 11-[address] [facility] Basophils/100 WBC (Bld) 0.3 % 0-1 [facility] Bilirubin [Mass/Vol] 0.40 mg/dL 0.20-1.00 [facility] Comment on above: For patients on eltr ombopag therapy, use of Dimension [place] TBIL is not recommended. Chloride [Moles/Vol] 117 mmol/L 98-107 [facility] Eosinophils/100 WBC (Bld) 4.2 % 0-[address] [facility] Glucose [Mass/Vol] 101 mg/dL 74-106 [facility] Comment on above: Fasting Glucose resu lt from 100 to 125 mg/dL suggests IMPAIRED HOMEOSTASIS per A.D.A. criteria. Hemoglobin (Bld) [Mass/Vol] 11.9 g/dL 13.0-16.[address] [facility] Monocytes/100 WBC (Bld) 5.9 % 0-10 [facility] Neutrophils (Bld) [#/Vol] 4.1 10*3/uL 2.0-7.[address] [facility] Neutrophils/100 WBC (Bld) 66.4 % 47-[address] [facility] Potassium [Moles/Vol] 4.0 mmol/L 3.5-5.1 [facility] Protein [Mass/Vol] 7.5 g/dL 6.4-8.2 [facility] Sodium [Moles/Vol] 142 mmol/L 136-145 [facility] WBC (Bld) [#/Vol] 6.1 10*3/uL 4.4-11.0 [facility] Bilirubin Test strip Ql (U)O rdered By: Cesar Medina on 02-19-2024 Bilirubin Ql (U) Negative Negative [facility] Determination of erythrocyte mean corpuscular volume (MCV)Ordered By: Cesar Medina on 02-19-2024 MCV (RBC) [Entitic vol] 93.7 fL 80-94 [facility] Erythrocyte distribution wid th ratioOrdered By: Cesar Medina on 02-19-2024 Erythrocyte distribution width (RBC) [Ratio] 14.4 % 11.6-14.[address] [facility] Erythrocyte distribution wid th standard deviationOrdered By: Cesar Medina on 02-19-2024 Erythrocyte distribution width (RBC) [Entitic vol] 48.8 fL 35.1-43.[address] [facility] Hematocrit Auto (Bld) [Volum e fraction]Ordered By: Cesar Medina on 02-19-2024 Hematocrit (Bld) [Volume fraction] 35.9 % 40-[address] [facility] Immature granulocytes/100 WB C Auto (Bld)Ordered By: Cesar Medina on 02-19-2024 Immature granulocytes/100 WBC (Bld) 0.200 % 0.0-0.[address] [facility] Comment on above: IG% - Immature Granu locytes (promyelocytes, myelocytes and metamyelocytes) > 1% indicates that a LEFT SHIFT is Present. Ketones Test strip Ql (U)Ord ered By: Cesar Medina on 02-19-2024 Ketones Ql (U) Negative Negative [facility] Laboratory - Chemistry and C hemistry - challengeOrdered By: Cesar Medina on 02-19-2024 Albumin/Globulin [Mass ratio] 0.7 {ratio} 0.9-2.[address] [facility] ALP [Catalytic activity/Vol] 167 U/L 45-[address] [facility] ALT [Catalytic activity/Vol] 15 U/L 16-[address] [facility] CO2 [Moles/Vol] 17.0 mmol/L 21.0-32.[address] [facility] Globulin (S) [Mass/Vol] 4.5 g/dL 2.2-4.2 [facility] Lipase [Catalytic activity/Vol] 22 U/L 13-[address] [facility] Comment on above: Please note:LIPASE r evised reference range effective 23. New Lipase methodology. Expected to produce lower values than the previous assay method. NEW Reference Range: 13 - 75 U/L Natriuretic peptide B (Bld) [Mass/Vol] 271.7 pg/mL 0-[address] [facility] Urea nitrogen/Creatinine [Mass ratio] 19.6 mg/mg 10-[address] [facility] Laboratory - Hematology and Cell countsOrdered By: Cesar Medina on 02-19-2024 MCH (RBC) [Entitic mass] 31.1 pg 27.0-32.[address] [facility] MCHC (RBC) [Mass/Vol] 33.1 g/dL 32-36 [facility] Nucleated RBC/100 WBC (Bld) [Ratio] 0 % 0-[address] [facility] Platelet mean volume (Bld) [Entitic vol] 10.6 fL 6.2-12.[address] [facility] Platelets (Bld) [#/Vol] 137 10*3/uL 150-[address] [facility] Laboratory - Microbiology an d Antimicrobial susceptibilityOrdered By: Cesar Medina on 02-19-2024 SARS-CoV-2 (COVID-19) RNA ELIANE+probe Ql (Unsp spec) [facility] Mucus LM Ql (Urine sed)Order ed By: Cesar Medina on 02-19-2024 Mucus Ql (Urine sed) 0 SEEN /hpf [facility] Nitrite Test strip Ql (U)Ord ered By: Cesar Medina on 02-19-2024 Nitrite Ql (U) Negative Negative [facility] No Panel InformationOrdered By: Cesar Medina on 02-19-2024 Urine RBC 0 SEEN /hpf 0-[address] [facility] Estimated Creatinine Clearance Calc 25.73 ml/min [facility] Estimated GFR (MDRD) Amer 32 mL/min >[address] [facility] Comment on above: GFR Calc Estimated GFR (MDRD) Non-Af Amer 26 mL/min >[address] [facility] Comment on above: Non- GFR Calc Troponin I High Sensitivity 63 pg/mL 3.0-78.[address] [facility] Comment on above: Please Note: New Megh[employer] t Units and Gender Specific Reference Ranges. For more information see Policy Stat Procedure [place] High Sensitivity Troponin (TNIH) and attachments. Protein Test strip Ql (U)Ord ered By: Cesar Medina on 02-19-2024 Protein Ql (U) 30 mg/dl Negative [facility] RBC Auto (Bld) [#/Vol]Ordere d By: Cesar Medina on 02-19-2024 RBC (Bld) [#/Vol] 3.83 10*6/uL 4.6-6.2 [facility] Serum or plasma calcium aubree urement (mass/volume)Ordered By: Cesar Medina on 02-19-2024 Calcium [Mass/Vol] 8.7 mg/dL 8.5-10.1 [facility] Serum or plasma creatinine m easurement (mass/volume)Ordered By: Cesar Medina on 02-19-2024 Creatinine [Mass/Vol] 2.50 mg/dL 0.70-1.30 [facility] Comment on above: The validity of the calculated GFR & GFRAA in patients over 70 years has not been determined. Clinical correlation is essential. Serum or plasma urea nitroge n measurement (mass/volume)Ordered By: Cesar Medina on 02-19-2024 Urea nitrogen [Mass/Vol] 49 mg/dL 7-[address] [facility] Squamous epithelial cells de tection in urine sediment by light microscopyOrdered By: Cesar Medina on 02-19-2024 Epithelial cells.squamous LM Ql (Urine sed) 0 SEEN /hpf 0-[address] [facility] Thin prep Papanicolaou smear with manual screeningOrdered By: Cesar Medina on 02-19-2024 Thin prep Papanicolaou smear with manual screening 3.0 g/dL 3.2-5.[address] [facility] Thin prep Papanicolaou smear with manual screening 20 U/L 15-[address] [facility] Thin prep Papanicolaou smear with manual screening 8 5-[address] [facility] Urine blood detectionOrdered By: Cesar Medina on 02-19-2024 RBC Ql (U) 10 /ul Negative [facility] Urine clarityOrdered By: Jodie Medina on 02-19-2024 Clarity (U) Clear Clear [facility] Urine color determinationOrd ered By: Cesar Medina on 02-19-2024 Color (U) Yellow Yellow [facility] Urine glucose detectionOrder ed By: Cesar Medina on 02-19-2024 Glucose Ql (U) Normal mg/dl Normal [facility] Urine leukocyte esterase det ection by dipstickOrdered By: Cesar Medina on 02-19-2024 Leukocyte esterase Test strip Ql (U) Negative Negative [facility] Urine pHOrdered By: Cesar deras on 02-19-2024 pH (U) 6.0 [pH] 5.0 - 8.[address] [facility] Urine sediment bacteria coun t by microscopy (number/high power field)Ordered By: Cesar Medina on 02-19-2024 Bacteria LM.HPF (Urine sed) [#/Area] 0 /[HPF] None Seen [facility] Urine specific gravity measu rementOrdered By: Cesar Medina on 02-19-2024 Specific gravity (U) [Rel density] 1.015 1.002-1.[address] [facility] Urine urobilinogen measureme ntOrdered By: Cesar Medina on 02-19-2024 Urobilinogen Ql (U) Normal mg/dl Normal [facility] Basophil percentageOrdered B y: Angélica Palomo on 02-16-2024 Basophil percentage 0 SEEN /hpf 0-5 [facility] Bilirubin Test strip Ql (U)O rdered By: Angélica Palomo on 02-16-2024 Bilirubin Ql (U) Negative Negative [facility] Hyaline casts LM.LPF (Urine sed) [#/Area]Ordered By: Angélica Palomo on 02-16-2024 Hyaline casts (Urine sed) [#/Area] 0 /[LPF] 0-[address] [facility] Ketones Test strip Ql (U)Ord ered By: Angélica Palomo on 02-16-2024 Ketones Ql (U) Negative Negative [facility] Mucus LM Ql (Urine sed)Order ed By: Angélica Palomo on 02-16-2024 Mucus Ql (Urine sed) 0 SEEN /hpf [facility] Nitrite Test strip Ql (U)Ord ered By: Angélica Palomo on 02-16-2024 Nitrite Ql (U) Negative Negative [facility] No Panel InformationOrdered By: Angélica Palmoo on 02-16-2024 Urine RBC 0 SEEN /hpf 0-[address] [facility] Protein Test strip Ql (U)Ord ered By: Angélica Palomo on 02-16-2024 Protein Ql (U) 100 mg/dl Negative [facility] Squamous epithelial cells de tection in urine sediment by light microscopyOrdered By: Angélica Palomo on 02-16-2024 Epithelial cells.squamous LM Ql (Urine sed) 0-5 SEEN /hpf 0-[address] [facility] Urine blood detectionOrdered By: Angélica Palomo on 02-16-2024 RBC Ql (U) 10 /ul Negative [facility] Urine clarityOrdered By: Dee Palomo on 02-16-2024 Clarity (U) Clear Clear [facility] Urine coarse granular cast d etectionOrdered By: Angélica Palomo on 02-16-2024 Coarse Granular Casts LM Ql (Urine sed) 0-5 SEEN /lpf 0-5 /lpf [facility] Urine color determinationOrd ered By: Angélica Palomo on 02-16-2024 Color (U) Yellow Yellow [facility] Urine glucose detectionOrder ed By: Angélica Palomo on 02-16-2024 Glucose Ql (U) Normal mg/dl Normal [facility] Urine leukocyte esterase det ection by dipstickOrdered By: Angélica Palomo on 02-16-2024 Leukocyte esterase Test strip Ql (U) Negative Negative [facility] Urine pHOrdered By: Angélica sher on 02-16-2024 pH (U) 6.0 [pH] 5.0 - 8.[address] [facility] Urine sediment bacteria coun t by microscopy (number/high power field)Ordered By: Angélica Paolmo on 02-16-2024 Bacteria LM.HPF (Urine sed) [#/Area] RARE /hpf None Seen [facility] Urine specific gravity measu rementOrdered By: Angélica Palomo on 02-16-2024 Specific gravity (U) [Rel density] 1.020 1.002-1.[address] [facility] Urine urobilinogen measureme ntOrdered By: Angélica Palomo on 02-16-2024 Urobilinogen Ql (U) Normal mg/dl Normal [facility] Absolute lymphocyte countOrd ered By: Angélica Palomo on 02-15-2024 Lymphocytes Auto (Unsp spec) [#/Vol] 1.62 10*3/uL 0.83-4.[address] [facility] Absolute lymphocyte countOrd ered By: Pepe Au on 02-15-2024 Lymphocytes Auto (Unsp spec) [#/Vol] 1.93 10*3/uL 0.83-4.[address] [facility] Automated lymphocyte count a s percentage of total leukocytesOrdered By: Angélica Palomo on 02-15-2024 Lymphocytes/100 WBC Auto (Unsp spec) 21.2 % - [facility] Automated lymphocyte count a s percentage of total leukocytesOrdered By: Pepe Au on 02-15-2024 Lymphocytes/100 WBC Auto (Unsp spec) 21.1 % [facility] Basophil percentageOrdered B y: Pepe Au on 02-15-2024 Basophils/100 WBC (Bld) 0.3 % 0-1 [facility] Hemoglobin (Bld) [Mass/Vol] 12.9 g/dL 13.0-16.[address] [facility] Basophil percentage 3.1 mg/dL 2.5-4.9 [facility] Chloride [Moles/Vol] 115 mmol/L 98-107 [facility] Eosinophils/100 WBC (Bld) 1.2 % 0-[address] [facility] Glucose [Mass/Vol] 112 mg/dL 74-106 [facility] Comment on above: Fasting Glucose resu lt from 100 to 125 mg/dL suggests IMPAIRED HOMEOSTASIS per A.D.A. criteria. Monocytes/100 WBC (Bld) 8.2 % 0-10 [facility] Neutrophils (Bld) [#/Vol] 6.3 10*3/uL 2.0-7.[address] [facility] Neutrophils/100 WBC (Bld) 68.9 % 47-[address] [facility] Potassium [Moles/Vol] 4.2 mmol/L 3.5-5.1 [facility] Sodium [Moles/Vol] 140 mmol/L 136-145 [facility] WBC (Bld) [#/Vol] 9.2 10*3/uL 4.4-11.0 [facility] Basophil percentageOrdered B y: Angélica Palomo on 02-15-2024 Bilirubin [Mass/Vol] 0.40 mg/dL 0.20-1.00 [facility] Comment on above: For patients on eltr ombopag therapy, use of Dimension [place] TBIL is not recommended. Chloride [Moles/Vol] 116 mmol/L 98-107 [facility] Eosinophils/100 WBC (Bld) 2.2 % 0-[address] [facility] Glucose [Mass/Vol] 116 mg/dL 74-106 [facility] Comment on above: Fasting Glucose resu lt from 100 to 125 mg/dL suggests IMPAIRED HOMEOSTASIS per A.D.A. criteria. Monocytes/100 WBC (Bld) 8.6 % 0-10 [facility] Neutrophils (Bld) [#/Vol] 5.1 10*3/uL 2.0-7.[address] [facility] Neutrophils/100 WBC (Bld) 67.3 % 47-[address] [facility] Potassium [Moles/Vol] 4.1 mmol/L 3.5-5.1 [facility] Protein [Mass/Vol] 7.7 g/dL 6.4-8.2 [facility] Sodium [Moles/Vol] 142 mmol/L 136-145 [facility] WBC (Bld) [#/Vol] 7.6 10*3/uL 4.4-11.0 [facility] Determination of erythrocyte mean corpuscular volume (MCV)Ordered By: Angélica Palomo on 02-15-2024 MCV (RBC) [Entitic vol] 97.3 fL 80-94 [facility] Determination of erythrocyte mean corpuscular volume (MCV)Ordered By: Pepe Au on 02-15-2024 MCV (RBC) [Entitic vol] 96.7 fL 80-94 [facility] Erythrocyte distribution wid th ratioOrdered By: Angélica Palomo on 02-15-2024 Erythrocyte distribution width (RBC) [Ratio] 14.0 % 11.6-14.[address] [facility] Erythrocyte distribution wid th ratioOrdered By: Pepe Au on 02-15-2024 Erythrocyte distribution width (RBC) [Ratio] 14.1 % 11.6-14.[address] [facility] Erythrocyte distribution wid th standard deviationOrdered By: Angélica Palomo on 02-15-2024 Erythrocyte distribution width (RBC) [Entitic vol] 50.0 fL 35.1-43.[address] [facility] Erythrocyte distribution wid th standard deviationOrdered By: Pepe Au on 02-15-2024 Erythrocyte distribution width (RBC) [Entitic vol] 50.3 fL 35.1-43.[address] [facility] Hematocrit Auto (Bld) [Volum e fraction]Ordered By: Angélica Palomo on 02-15-2024 Hematocrit (Bld) [Volume fraction] 40.3 % 40-[address] [facility] Hematocrit Auto (Bld) [Volum e fraction]Ordered By: Pepe Au on 02-15-2024 Hematocrit (Bld) [Volume fraction] 40.8 % 40-[address] [facility] Immature granulocytes/100 WB C Auto (Bld)Ordered By: Angélica Palomo on 02-15-2024 Immature granulocytes/100 WBC (Bld) 0.400 % 0.0-0.[address] [facility] Comment on above: IG% - Immature Granu locytes (promyelocytes, myelocytes and metamyelocytes) > 1% indicates that a LEFT SHIFT is Present. Immature granulocytes/100 WB C Auto (Bld)Ordered By: Pepe Au on 02-15-2024 Immature granulocytes/100 WBC (Bld) 0.300 % 0.0-0.[address] [facility] Comment on above: IG% - Immature Granu locytes (promyelocytes, myelocytes and metamyelocytes) > 1% indicates that a LEFT SHIFT is Present. Iron measurement (mass/mass) Ordered By: Ppee Au on 02-15-2024 Iron (Unsp spec) [Mass/Mass] 31 ug/dL 65-[address] [facility] Laboratory - Chemistry and C hemistry - challengeOrdered By: Angélica Palomo on 02-15-2024 Albumin/Globulin [Mass ratio] 0.8 {ratio} 0.9-2.[address] [facility] ALP [Catalytic activity/Vol] 123 U/L 45-[address] [facility] ALT [Catalytic activity/Vol] 12 U/L 16-[address] [facility] Globulin (S) [Mass/Vol] 4.4 g/dL 2.2-4.2 [facility] Lipase [Catalytic activity/Vol] 20 U/L 13-[address] [facility] Comment on above: Please note:LIPASE r evised reference range effective 23. New Lipase methodology. Expected to produce lower values than the previous assay method. NEW Reference Range: 13 - 75 U/L Urea nitrogen/Creatinine [Mass ratio] 19.1 mg/mg [address] [facility] Laboratory - Chemistry and C hemistry - challengeOrdered By: Pepe Au on 02-15-2024 CO2 [Moles/Vol] 19.0 mmol/L 21.0-32.[address] [facility] Ferritin [Mass/Vol] 141 ng/mL 26-388 [facility] Urea nitrogen/Creatinine [Mass ratio] 20.6 mg/mg 09-[address] [facility] Laboratory - Hematology and Cell countsOrdered By: Angélica Palomo on 02-15-2024 MCH (RBC) [Entitic mass] 31.2 pg 27.0-32.[address] [facility] MCHC (RBC) [Mass/Vol] 32.0 g/dL 32-36 [facility] [facility] Platelet mean volume (Bld) [Entitic vol] 10.7 fL 6.2-12.[address] [facility] Platelets (Bld) [#/Vol] 111 10*3/uL 150-[address] [facility] Laboratory - Hematology and Cell countsOrdered By: Pepe Au on 02-15-2024 Nucleated RBC/100 WBC (Bld) [Ratio] 0 % 0-[address] [facility] MCH (RBC) [Entitic mass] 30.6 pg 27.0-32.[address] [facility] MCHC (RBC) [Mass/Vol] 31.6 g/dL 32-36 [facility] Platelet mean volume (Bld) [Entitic vol] 10.0 fL 6.2-12.[address] [facility] Platelets (Bld) [#/Vol] 118 10*3/uL 150-[address] [facility] No Panel InformationOrdered By: Angélica Palomo on 02-15-2024 Estimated Creatinine Clearance Calc 25.89 ml/min [facility] Estimated GFR (MDRD) Amer 33 mL/min >[address] [facility] Comment on above: GFR Calc Estimated GFR (MDRD) Non-Af Amer 27 mL/min >[address] [facility] Comment on above: Non- GFR Calc No Panel InformationOrdered By: Pepe Au on 02-15-2024 Estimated GFR (MDRD) Amer 32 mL/min >[address] [facility] Comment on above: GFR Calc Estimated GFR (MDRD) Non-Af Amer 26 mL/min >[address] [facility] Comment on above: Non- GFR Calc Total Iron Binding Capacity 264 ug/dL 250-[address] [facility] RBC Auto (Bld) [#/Vol]Ordere d By: Angélica Palomo on 02-15-2024 RBC (Bld) [#/Vol] 4.14 10*6/uL 4.6-6.2 [facility] RBC Auto (Bld) [#/Vol]Ordere d By: Pepe Au on 02-15-2024 RBC (Bld) [#/Vol] 4.22 10*6/uL 4.6-6.2 [facility] Serum or plasma calcium aubree urement (mass/volume)Ordered By: Angélica Palomo on 02-15-2024 Calcium [Mass/Vol] 9.5 mg/dL 8.5-10.1 [facility] Serum or plasma calcium aubree urement (mass/volume)Ordered By: Pepe Au on 02-15-2024 Calcium [Mass/Vol] 9.4 mg/dL 8.5-10.1 [facility] Serum or plasma creatinine m easurement (mass/volume)Ordered By: Angélica Palomo on 02-15-2024 Creatinine [Mass/Vol] 2.46 mg/dL 0.70-1.30 [facility] Comment on above: The validity of the calculated GFR & GFRAA in patients over 70 years has not been determined. Clinical correlation is essential. Serum or plasma creatinine m easurement (mass/volume)Ordered By: Pepe Au on 02-15-2024 Creatinine [Mass/Vol] 2.53 mg/dL 0.70-1.30 [facility] Comment on above: The validity of the calculated GFR & GFRAA in patients over 70 years has not been determined. Clinical correlation is essential. Serum or plasma iron saturat ion measurement (mass fraction)Ordered By: Pepe Au on 02-15-2024 Iron saturation [Mass fraction] 11.7 % 15.0-55.[address] [facility] Serum or plasma urea nitroge n measurement (mass/volume)Ordered By: Angélica Palomo on 02-15-2024 Urea nitrogen [Mass/Vol] 47 mg/dL 06-[address] [facility] Serum or plasma urea nitroge n measurement (mass/volume)Ordered By: Pepe Au on 02-15-2024 Urea nitrogen [Mass/Vol] 52 mg/dL 06-[address] [facility] Thin prep Papanicolaou smear with manual screeningOrdered By: Angélica Palomo on 02-15-2024 Thin prep Papanicolaou smear with manual screening 3.3 g/dL 3.2-5.[address] [facility] Thin prep Papanicolaou smear with manual screening 18 U/L 15-[address] [facility] Thin prep Papanicolaou smear with manual screening 7 5-[address] [facility] Thin prep Papanicolaou smear with manual screeningOrdered By: Pepe Au on 02-15-2024 Thin prep Papanicolaou smear with manual screening 3.7 g/dL 3.2-5.[address] [facility] Absolute lymphocyte countOrd ered By: Pepe Au on 01-18-2024 Lymphocytes Auto (Unsp spec) [#/Vol] 1.86 10*3/uL 0.83-4.[address] [facility] Automated lymphocyte count a s percentage of total leukocytesOrdered By: Pepe Au on 01-18-2024 Lymphocytes/100 WBC Auto (Unsp spec) 25.9 % 19-[address] [facility] Basophil percentageOrdered B y: Pepe Au on 01-18-2024 Basophil percentage 3.0 mg/dL 2.5-4.9 [facility] Basophils/100 WBC (Bld) 0.6 % 0-1 [facility] Chloride [Moles/Vol] 111 mmol/L 98-107 [facility] Eosinophils/100 WBC (Bld) 4.0 % 0-[address] [facility] Glucose [Mass/Vol] 160 mg/dL 74-106 [facility] Comment on above: Fasting Glucose resu lt greater than or equal to 126 mg/dL suggests DIABETES MELLITUS per A.D.A. criteria. Hemoglobin (Bld) [Mass/Vol] 11.7 g/dL 13.0-16.[address] [facility] Monocytes/100 WBC (Bld) 7.3 % 0-10 [facility] Neutrophils (Bld) [#/Vol] 4.4 10*3/uL 2.0-7.[address] [facility] Neutrophils/100 WBC (Bld) 61.9 % 47-[address] [facility] Potassium [Moles/Vol] 4.7 mmol/L 3.5-5.1 [facility] Sodium [Moles/Vol] 139 mmol/L 136-145 [facility] WBC (Bld) [#/Vol] 7.2 10*3/uL 4.4-11.0 [facility] Determination of erythrocyte mean corpuscular volume (MCV)Ordered By: Pepe Au on 01-18-2024 MCV (RBC) [Entitic vol] 97.4 fL 80-94 [facility] Erythrocyte distribution wid th ratioOrdered By: [facility] Au on 01-18-2024 Erythrocyte distribution width (RBC) [Ratio] 13.7 % 11.6-14.[address] [facility] Erythrocyte distribution wid th standard deviationOrdered By: [facility] department[facility] Au on 01-18-2024 Erythrocyte distribution width (RBC) [Entitic vol] 48.4 fL 35.1-43.[address] [facility] Hematocrit Auto (Bld) [Volum e fraction]Ordered By: Pepe Au on 01-18-2024 Hematocrit (Bld) [Volume fraction] 37.2 % 40-[address] [facility] Immature granulocytes/100 WB C Auto (Bld)Ordered By: Pepe Au on 01-18-2024 Immature granulocytes/100 WBC (Bld) 0.300 % 0.0-0.[address] [facility] Comment on above: IG% - Immature Granu locytes (promyelocytes, myelocytes and metamyelocytes) > 1% indicates that a LEFT SHIFT is Present. Iron measurement (mass/mass) Ordered By: Pepe Au on 01-18-2024 Iron (Unsp spec) [Mass/Mass] 54 ug/dL 65-[address] [facility] Laboratory - Chemistry and C hemistry - challengeOrdered By: Pepe Au on 01-18-2024 CO2 [Moles/Vol] 26.0 mmol/L 21.0-32.[address] [facility] Ferritin [Mass/Vol] 103 ng/mL 26-388 [facility] Urea nitrogen/Creatinine [Mass ratio] 18.2 mg/mg 10-[address] [facility] Laboratory - Hematology and Cell countsOrdered By: Pepe Au on 01-18-2024 MCH (RBC) [Entitic mass] 30.6 pg 27.0-32.[address] [facility] MCHC (RBC) [Mass/Vol] 31.5 g/dL 32-36 [facility] Nucleated RBC/100 WBC (Bld) [Ratio] 0 % 0-[address] [facility] Platelet mean volume (Bld) [Entitic vol] 10.2 fL 6.2-12.[address] [facility] Platelets (Bld) [#/Vol] 131 10*3/uL 150-[address] [facility] No Panel InformationOrdered By: Pepe Au on 01-18-2024 Estimated GFR (MDRD) Amer 33 mL/min >[address] [facility] Comment on above: GFR Calc Estimated GFR (MDRD) Non-Af Amer 27 mL/min >[address] [facility] Comment on above: Non- GFR Calc Parathyroid Hormone (Intact) 20.1 pg/mL 18.4-80.[address] [facility] Total Iron Binding Capacity 273 ug/dL 250-[address] [facility] RBC Auto (Bld) [#/Vol]Ordere d By: Pepe Au on 01-18-2024 RBC (Bld) [#/Vol] 3.82 10*6/uL 4.6-6.2 [facility] Serum or plasma calcium aubree urement (mass/volume)Ordered By: Pepe Au on 01-18-2024 Calcium [Mass/Vol] 9.8 mg/dL 8.5-10.1 [facility] Serum or plasma creatinine m easurement (mass/volume)Ordered By: Pepe Au on 01-18-2024 Creatinine [Mass/Vol] 2.42 mg/dL 0.70-1.30 [facility] Comment on above: The validity of the calculated GFR & GFRAA in patients over 70 years has not been determined. Clinical correlation is essential. Serum or plasma iron saturat ion measurement (mass fraction)Ordered By: [facility] Au on 01-18-2024 Iron saturation [Mass fraction] 19.8 % 15.0-55.[address] [facility] Serum or plasma urea nitroge n measurement (mass/volume)Ordered By: Pepe Au on 01-18-2024 Urea nitrogen [Mass/Vol] 44 mg/dL 7-[address] [facility] Thin prep Papanicolaou smear with manual screeningOrdered By: [facility] Angely on 01-18-2024 Thin prep Papanicolaou smear with manual screening 3.2 g/dL 3.2-5.[address] [facility] Absolute lymphocyte countOrd ered By: Pepe Au on 12-21-2023 Lymphocytes Auto (Unsp spec) [#/Vol] 2.33 10*3/uL 0.83-4.[address] [facility] Automated lymphocyte count a s percentage of total leukocytesOrdered By: Pepe Au on 12-21-2023 Lymphocytes/100 WBC Auto (Unsp spec) 36.6 % 19-[address] [facility] Basophil percentageOrdered B y: Pepe Au on 12-21-2023 Basophil percentage 3.7 mg/dL 2.5-4.9 [facility] Basophils/100 WBC (Bld) 0.3 % 0-1 [facility] Chloride [Moles/Vol] 110 mmol/L 98-107 [facility] Eosinophils/100 WBC (Bld) 2.0 % 0-[address] [facility] Glucose [Mass/Vol] 89 mg/dL 74-106 [facility] Hemoglobin (Bld) [Mass/Vol] 11.0 g/dL 13.0-16.[address] [facility] Monocytes/100 WBC (Bld) 6.1 % 0-10 [facility] Neutrophils (Bld) [#/Vol] 3.5 10*3/uL 2.0-7.[address] [facility] Neutrophils/100 WBC (Bld) 54.8 % 47-[address] [facility] Potassium [Moles/Vol] 4.4 mmol/L 3.5-5.1 [facility] Sodium [Moles/Vol] 137 mmol/L 136-145 [facility] WBC (Bld) [#/Vol] 6.4 10*3/uL 4.4-11.0 [facility] Determination of erythrocyte mean corpuscular volume (MCV)Ordered By: Pepe Au on 12-21-2023 MCV (RBC) [Entitic vol] 98.1 fL 80-94 [facility] Erythrocyte distribution wid th ratioOrdered By: Pepe Au on 12-21-2023 Erythrocyte distribution width (RBC) [Ratio] 14.6 % 11.6-14.[address] [facility] Erythrocyte distribution wid th standard deviationOrdered By: [facility] departmentsteve Au on 12-21-2023 Erythrocyte distribution width (RBC) [Entitic vol] 52.2 fL 35.1-43.[address] [facility] Hematocrit Auto (Bld) [Volum e fraction]Ordered By: Pepe Au on 12-21-2023 Hematocrit (Bld) [Volume fraction] 35.8 % 40-[address] [facility] Immature granulocytes/100 WB C Auto (Bld)Ordered By: Pepe Au on 12-21-2023 Immature granulocytes/100 WBC (Bld) 0.200 % 0.0-0.[address] [facility] Comment on above: IG% - Immature Granu locytes (promyelocytes, myelocytes and metamyelocytes) > 1% indicates that a LEFT SHIFT is Present. Iron measurement (mass/mass) Ordered By: Pepe Au on 12-21-2023 Iron (Unsp spec) [Mass/Mass] 70 ug/dL 65-[address] [facility] Laboratory - Chemistry and C hemistry - challengeOrdered By: Pepe Au on 12-21-2023 CO2 [Moles/Vol] 24.0 mmol/L 21.0-32.[address] [facility] Ferritin [Mass/Vol] 125 ng/mL 26-388 [facility] Urea nitrogen/Creatinine [Mass ratio] 18.7 mg/mg 10-[address] [facility] Laboratory - Hematology and Cell countsOrdered By: Pepe Au on 12-21-2023 MCH (RBC) [Entitic mass] 30.1 pg 27.0-32.[address] [facility] MCHC (RBC) [Mass/Vol] 30.7 g/dL 32-36 [facility] Nucleated RBC/100 WBC (Bld) [Ratio] 0 % 0-[address] [facility] Platelets (Bld) [#/Vol] 122 10*3/uL 150-[address] [facility] No Panel InformationOrdered By: Pepe Au on 12-21-2023 Estimated GFR (MDRD) Amer 31 mL/min >[address] [facility] Comment on above: GFR Calc Estimated GFR (MDRD) Non-Af Amer 26 mL/min >[address] [facility] Comment on above: Non- GFR Calc Total Iron Binding Capacity 251 ug/dL 250-[address] [facility] Platelet mean volume Evan-Ec ker (Bld) [Entitic vol]Ordered By: Pepe Au on 12-21-2023 Platelet mean volume (Bld) [Entitic vol] 10.3 fL 6.2-12.[address] [facility] RBC Auto (Bld) [#/Vol]Ordere d By: Pepe Au on 12-21-2023 RBC (Bld) [#/Vol] 3.65 10*6/uL 4.6-6.2 [facility] Serum or plasma calcium aubree urement (mass/volume)Ordered By: Pepe Au on 12-21-2023 Calcium [Mass/Vol] 9.8 mg/dL 8.5-10.1 [facility] Serum or plasma creatinine m easurement (mass/volume)Ordered By: Pepe Au on 12-21-2023 Creatinine [Mass/Vol] 2.57 mg/dL 0.70-1.30 [facility] Comment on above: The validity of the calculated GFR & GFRAA in patients over 70 years has not been determined. Clinical correlation is essential. Serum or plasma iron saturat ion measurement (mass fraction)Ordered By: [facility] on 12-21-2023 Iron saturation [Mass fraction] 27.9 % 15.0-55.[address] [facility] Serum or plasma urea nitroge n measurement (mass/volume)Ordered By: [facility] on 12-21-2023 Urea nitrogen [Mass/Vol] 48 mg/dL 7-[address] [facility] Thin prep Papanicolaou smear with manual screeningOrdered By: [facility] on 12-21-2023 Thin prep Papanicolaou smear with manual screening 3.1 g/dL 3.2-5.[address] [facility] Absolute lymphocyte countOrd ered By: [facility] on 12-02-2023 Lymphocytes Auto (Unsp spec) [#/Vol] 1.49 10*3/uL 0.83-4.[address] [facility] Basophil percentageOrdered B y: [facility] 12-02-2023 Basophil percentage 3.3 mg/dL 2.5-4.9 [facility] Basophils/100 WBC (Bld) 0.3 % 0-1 [facility] Chloride [Moles/Vol] 111 mmol/L 98-107 [facility] Eosinophils/100 WBC (Bld) 0.9 % 0-[address] [facility] Glucose [Mass/Vol] 131 mg/dL 74-106 [facility] Comment on above: Fasting Glucose resu lt greater than or equal to 126 mg/dL suggests DIABETES MELLITUS per A.D.A. criteria. Neutrophils (Bld) [#/Vol] 6.6 10*3/uL 2.0-7.[address] [facility] Neutrophils/100 WBC (Bld) 75.9 % 47-[address] [facility] Potassium [Moles/Vol] 4.7 mmol/L 3.5-5.1 [facility] Sodium [Moles/Vol] 142 mmol/L 136-145 [facility] WBC (Bld) [#/Vol] 8.7 10*3/uL 4.4-11.0 [facility] Blood erythrocytes count (nu mber/volume)Ordered By: Pepe Au on 12-02-2023 RBC (Bld) [#/Vol] 3.48 10*6/uL 4.6-6.2 [facility] Blood hemoglobin measurement (mass/volume)Ordered By: Pepe Au on 12-02-2023 Hemoglobin (Bld) [Mass/Vol] 10.9 g/dL 13.0-16.[address] [facility] Blood lymphocytes/100 leukoc ytesOrdered By: Pepe Au on 12-02-2023 Lymphocytes/100 WBC (Bld) 17.1 % 19-[address] [facility] Blood monocytes/100 leukocyt esOrdered By: Pepe Au on 12-02-2023 Monocytes/100 WBC (Bld) 5.5 % 0-10 [facility] Blood platelet mean volumeOr dered By: Pepe Au on 12-02-2023 Platelet mean volume (Bld) [Entitic vol] 10.8 fL 6.2-12.[address] [facility] Determination of erythrocyte mean corpuscular volume (MCV)Ordered By: Pepe Au on 12-02-2023 MCV (RBC) [Entitic vol] 101.1 fL 80-94 [facility] Hematocrit Auto (Bld) [Volum e fraction]Ordered By: Pepe Au on 12-02-2023 Hematocrit (Bld) [Volume fraction] 35.2 % 40-[address] [facility] Iron measurement (mass/mass) Ordered By: Pepe Au on 12-02-2023 Iron (Unsp spec) [Mass/Mass] 70 ug/dL 65-[address] [facility] Laboratory - Chemistry and C hemistry - challengeOrdered By: Pepe Au on 12-02-2023 CO2 [Moles/Vol] 26.0 mmol/L 21.0-32.[address] [facility] Urea nitrogen/Creatinine [Mass ratio] 17.5 mg/mg 10-[address] [facility] Laboratory - Hematology and Cell countsOrdered By: Pepe Au on 12-02-2023 Erythrocyte distribution width (RBC) [Entitic vol] 58.1 fL 35.1-43.[address] [facility] Erythrocyte distribution width (RBC) [Ratio] 15.8 % 11.6-14.[address] [facility] Immature granulocytes/100 WBC (Bld) 0.300 % 0.0-0.[address] [facility] Comment on above: IG% - Immature Granu locytes (promyelocytes, myelocytes and metamyelocytes) > 1% indicates that a LEFT SHIFT is Present. MCH (RBC) [Entitic mass] 31.3 pg 27.0-32.[address] [facility] Nucleated RBC/100 WBC (Bld) [Ratio] 0 % 0-[address] [facility] MCHC Auto (RBC) [Mass/Vol]Or dered By: Pepe Au on 12-02-2023 MCHC (RBC) [Mass/Vol] 31.0 g/dL 32-36 [facility] No Panel InformationOrdered By: Pepe Au on 12-02-2023 Estimated GFR (MDRD) Amer 33 mL/min >[address] [facility] Comment on above: GFR Calc Estimated GFR (MDRD) Non-Af Amer 27 mL/min >[address] [facility] Comment on above: Non- GFR Calc Parathyroid Hormone (Intact) 26.3 pg/mL 18.4-80.[address] [facility] Total Iron Binding Capacity 233 ug/dL 250-[address] [facility] Platelets bldOrdered By: Zandra Au on 12-02-2023 Platelets (Bld) [#/Vol] 162 10*3/uL 150-[address] [facility] Serum or plasma albumin aubree urement (mass/volume)Ordered By: Pepe Au on 12-02-2023 Albumin [Mass/Vol] 3.1 g/dL 3.2-5.0 [facility] Serum or plasma calcium aubree urement (mass/volume)Ordered By: Pepe Au on 12-02-2023 Calcium [Mass/Vol] 9.0 mg/dL 8.5-10.1 [facility] Serum or plasma creatinine m easurement (mass/volume)Ordered By: Pepe Au on 12-02-2023 Creatinine [Mass/Vol] 2.46 mg/dL 0.70-1.30 [facility] Comment on above: The validity of the calculated GFR & GFRAA in patients over 70 years has not been determined. Clinical correlation is essential. Serum or plasma ferritin laurie surement (mass/volume)Ordered By: Pepe Au on 12-02-2023 Ferritin [Mass/Vol] 118 ng/mL 26-388 [facility] Serum or plasma urea nitroge n measurement (mass/volume)Ordered By: Pepe Au on 12-02-2023 Urea nitrogen [Mass/Vol] 43 mg/dL 7-[address] [facility] Serum or plasma uric acid me asurement (mass/volume)Ordered By: Pepe Au on 12-02-2023 Urate [Mass/Vol] 5.5 mg/dL 3.5-7.[address] [facility] Comment on above: The drugs N-Acetylcy steine and Metamizole may falsely depress this assay. Absolute lymphocyte countOrd ered By: Pepe Au on 11-23-2023 Lymphocytes Auto (Unsp spec) [#/Vol] 1.50 10*3/uL 0.83-4.[address] [facility] Basophil percentageOrdered B y: Pepe Au on 11-23-2023 Basophil percentage 195 mg/dL 74-106 [facility] Basophil percentage 3.1 mg/dL 2.5-4.9 [facility] Basophil percentage 139 mmol/L 136-145 [facility] Basophil percentage 4.4 mmol/L 3.5-5.1 [facility] Basophil percentage 110 mmol/L 98-107 [facility] Basophils (Bld) [#/Vol] 7.4 10*3/uL 4.4-11.[address] [facility] Basophils (Bld) [#/Vol] 5.1 10*3/uL 2.0-7.[address] [facility] Basophils/100 WBC (Bld) 68.1 % 47-70 [facility] Basophils/100 WBC (Bld) 4.0 % 0-5 [facility] Basophils/100 WBC (Bld) 0.5 % 0-1 [facility] Chloride [Moles/Vol] 110 mmol/L 98-107 [facility] Eosinophils/100 WBC (Bld) 4.0 % 0-[address] [facility] Glucose [Mass/Vol] 195 mg/dL 74-106 [facility] Comment on above: Fasting Glucose resu lt greater than or equal to 126 mg/dL suggests DIABETES MELLITUS per A.D.A. criteria. Neutrophils (Bld) [#/Vol] 5.1 10*3/uL 2.0-7.[address] [facility] Neutrophils/100 WBC (Bld) 68.1 % 47-[address] [facility] Potassium [Moles/Vol] 4.4 mmol/L 3.5-5.1 [facility] Sodium [Moles/Vol] 139 mmol/L 136-145 [facility] WBC (Bld) [#/Vol] 7.4 10*3/uL 4.4-11.0 [facility] Blood erythrocytes count (nu mber/volume)Ordered By: Pepe Au on 11-23-2023 RBC (Bld) [#/Vol] 3.23 10*6/uL 4.6-6.2 [facility] Blood hemoglobin measurement (mass/volume)Ordered By: Ppee Au on 11-23-2023 Hemoglobin (Bld) [Mass/Vol] 10.2 g/dL 13.0-16.[address] [facility] Blood lymphocytes/100 leukoc ytesOrdered By: Pepe Au on 11-23-2023 Lymphocytes/100 WBC (Bld) 20.2 % 19-[address] [facility] Blood monocytes/100 leukocyt esOrdered By: Pepe Au on 11-23-2023 Monocytes/100 WBC (Bld) 6.7 % 0-10 [facility] Blood platelet mean volumeOr dered By: Pepe Au on 11-23-2023 Platelet mean volume (Bld) [Entitic vol] 10.2 fL 6.2-12.[address] [facility] Determination of erythrocyte mean corpuscular volume (MCV)Ordered By: Pepe Au on 11-23-2023 MCV (RBC) [Entitic vol] 98.5 fL 80-94 [facility] Hematocrit Auto (Bld) [Volum e fraction]Ordered By: Pepe Au on 11-23-2023 Hematocrit (Bld) [Volume fraction] 31.8 % 40-[address] [facility] Iron measurement (mass/mass) Ordered By: Pepe Au on 11-23-2023 Iron (Unsp spec) [Mass/Mass] 57 ug/dL 65-[address] [facility] Laboratory - Chemistry and C hemistry - challengeOrdered By: Pepe Au on 11-23-2023 CO2 [Moles/Vol] 26.0 mmol/L 21.0-32.[address] [facility] Urea nitrogen/Creatinine [Mass ratio] 26.6 mg/mg 10-[address] [facility] Laboratory - Hematology and Cell countsOrdered By: Pepe Au on 11-23-2023 Erythrocyte distribution width (RBC) [Entitic vol] 55.5 fL 35.1-43.[address] [facility] Erythrocyte distribution width (RBC) [Ratio] 15.7 % 11.6-14.[address] [facility] Immature granulocytes/100 WBC (Bld) 0.500 % 0.0-0.[address] [facility] Comment on above: IG% - Immature Granu locytes (promyelocytes, myelocytes and metamyelocytes) > 1% indicates that a LEFT SHIFT is Present. MCH (RBC) [Entitic mass] 31.6 pg 27.0-32.[address] [facility] Nucleated RBC/100 WBC (Bld) [Ratio] 0 % 0-[address] [facility] MCHC Auto (RBC) [Mass/Vol]Or dered By: Pepe Au on 11-23-2023 MCHC (RBC) [Mass/Vol] 32.1 g/dL 32-36 [facility] No Panel InformationOrdered By: Pepe Au on 11-23-2023 Estimated GFR (MDRD) Amer 33 mL/min >[address] [facility] Comment on above: GFR Calc Estimated GFR (MDRD) Non-Af Amer 27 mL/min >[address] [facility] Comment on above: Non- GFR Calc Total Iron Binding Capacity 223 ug/dL 250-[address] [facility] 31.6 pg 27.0-32.[address] [facility] 15.7 % 11.6-14.[address] [facility] 55.5 fl 35.1-43.[address] [facility] 0.500 % 0.0-0.[address] [facility] 0 % 0-[address] [facility] 27 mL/min >[address] [facility] 33 mL/min >[address] [facility] 26.6 RATIO 10-[address] [facility] 26.0 mmol/L 21.0-32.[address] [facility] 223 ug/dL 250-[address] [facility] Platelets bldOrdered By: Zandra Au on 11-23-2023 Platelets (Bld) [#/Vol] 134 10*3/uL 150-[address] [facility] Serum or plasma albumin aubree urement (mass/volume)Ordered By: Pepe Au on 11-23-2023 Albumin [Mass/Vol] 2.9 g/dL 3.2-5.0 [facility] Serum or plasma calcium aubree urement (mass/volume)Ordered By: Pepe Au on 11-23-2023 Calcium [Mass/Vol] 9.8 mg/dL 8.5-10.1 [facility] Serum or plasma creatinine m easurement (mass/volume)Ordered By: Pepe Au on 11-23-2023 Creatinine [Mass/Vol] 2.44 mg/dL 0.70-1.30 [facility] Comment on above: The validity of the calculated GFR & GFRAA in patients over 70 years has not been determined. Clinical correlation is essential. Serum or plasma ferritin laurie surement (mass/volume)Ordered By: Pepe Au on 11-23-2023 Ferritin [Mass/Vol] 208 ng/mL 26-388 [facility] Serum or plasma iron saturat ion measurement (mass fraction)Ordered By: Pepe Au on 11-23-2023 Iron saturation [Mass fraction] 25.6 % 15.0-55.[address] [facility] Serum or plasma urea nitroge n measurement (mass/volume)Ordered By: Pepe Au on 11-23-2023 Urea nitrogen [Mass/Vol] 65 mg/dL 7-[address] [facility] Absolute lymphocyte countOrd ered By: Pepe Au on 10-26-2023 Lymphocytes Auto (Unsp spec) [#/Vol] 1.33 10*3/uL 0.83-4.[address] [facility] Basophil percentageOrdered B y: Pepe Au on 10-26-2023 Basophil percentage 176 mg/dL 74-106 [facility] Basophil percentage 2.9 mg/dL 2.5-4.9 [facility] Basophil percentage 141 mmol/L 136-145 [facility] Basophil percentage 4.5 mmol/L 3.5-5.1 [facility] Basophil percentage 109 mmol/L 98-107 [facility] Basophils (Bld) [#/Vol] 5.9 10*3/uL 4.4-11.[address] [facility] Basophils (Bld) [#/Vol] 3.7 10*3/uL 2.0-7.[address] [facility] Basophils/100 WBC (Bld) 62.8 % 47-70 [facility] Basophils/100 WBC (Bld) 4.8 % 0-5 [facility] Basophils/100 WBC (Bld) 0.7 % 0-1 [facility] Chloride [Moles/Vol] 109 mmol/L 98-107 [facility] Eosinophils/100 WBC (Bld) 4.8 % 0-[address] [facility] Glucose [Mass/Vol] 176 mg/dL 74-106 [facility] Comment on above: Fasting Glucose resu lt greater than or equal to 126 mg/dL suggests DIABETES MELLITUS per A.D.A. criteria. Neutrophils (Bld) [#/Vol] 3.7 10*3/uL 2.0-7.[address] [facility] Neutrophils/100 WBC (Bld) 62.8 % 47-[address] [facility] Potassium [Moles/Vol] 4.5 mmol/L 3.5-5.1 [facility] Sodium [Moles/Vol] 141 mmol/L 136-145 [facility] WBC (Bld) [#/Vol] 5.9 10*3/uL 4.4-11.0 [facility] Blood erythrocytes count (nu mber/volume)Ordered By: Pepe Au on 10-26-2023 RBC (Bld) [#/Vol] 3.85 10*6/uL 4.6-6.2 [facility] Blood hemoglobin measurement (mass/volume)Ordered By: Pepe Au on 10-26-2023 Hemoglobin (Bld) [Mass/Vol] 11.8 g/dL 13.0-16.[address] [facility] Blood lymphocytes/100 leukoc ytesOrdered By: Pepe Au on 10-26-2023 Lymphocytes/100 WBC (Bld) 22.7 % 19-[address] [facility] Blood monocytes/100 leukocyt esOrdered By: [facility] Au on 10-26-2023 Monocytes/100 WBC (Bld) 8.7 % 0-10 [facility] Blood platelet mean volumeOr dered By: Pepe Au on 10-26-2023 Platelet mean volume (Bld) [Entitic vol] 10.3 fL 6.2-12.[address] [facility] Determination of erythrocyte mean corpuscular volume (MCV)Ordered By: [facility] Au on 10-26-2023 MCV (RBC) [Entitic vol] 98.4 fL 80-94 [facility] Hematocrit Auto (Bld) [Volum e fraction]Ordered By: [facility] Au on 10-26-2023 Hematocrit (Bld) [Volume fraction] 37.9 % 40-[address] [facility] Iron measurement (mass/mass) Ordered By: Pepe Au on 10-26-2023 Iron (Unsp spec) [Mass/Mass] 41 ug/dL 65-[address] [facility] Laboratory - Chemistry and C hemistry - challengeOrdered By: Pepe Au on 10-26-2023 CO2 [Moles/Vol] 24.0 mmol/L 21.0-32.[address] [facility] Urea nitrogen/Creatinine [Mass ratio] 23.1 mg/mg 10-[address] [facility] Laboratory - Hematology and Cell countsOrdered By: Pepe Au on 10-26-2023 Erythrocyte distribution width (RBC) [Entitic vol] 51.5 fL 35.1-43.[address] [facility] Erythrocyte distribution width (RBC) [Ratio] 14.3 % 11.6-14.[address] [facility] Immature granulocytes/100 WBC (Bld) 0.300 % 0.0-0.[address] [facility] Comment on above: IG% - Immature Granu locytes (promyelocytes, myelocytes and metamyelocytes) > 1% indicates that a LEFT SHIFT is Present. MCH (RBC) [Entitic mass] 30.6 pg 27.0-32.[address] [facility] Nucleated RBC/100 WBC (Bld) [Ratio] 0 % 0-[address] [facility] MCHC Auto (RBC) [Mass/Vol]Or dered By: Pepe Au on 10-26-2023 MCHC (RBC) [Mass/Vol] 31.1 g/dL 32-36 [facility] No Panel InformationOrdered By: Pepe Au on 10-26-2023 Estimated GFR (MDRD) Amer 34 mL/min >[address] [facility] Comment on above: GFR Calc Estimated GFR (MDRD) Non-Af Amer 28 mL/min >[address] [facility] Comment on above: Non- GFR Calc Total Iron Binding Capacity 243 ug/dL 250-[address] [facility] 30.6 pg 27.0-32.[address] [facility] 14.3 % 11.6-14.[address] [facility] 51.5 fl 35.1-43.[address] [facility] 0.300 % 0.0-0.[address] [facility] 0 % 0-[address] [facility] 28 mL/min >[address] [facility] 34 mL/min >[address] [facility] 23.1 RATIO 10-[address] [facility] 24.0 mmol/L 21.0-32.[address] [facility] 243 ug/dL 250-[address] [facility] Platelets bldOrdered By: Zandar Au on 10-26-2023 Platelets (Bld) [#/Vol] 162 10*3/uL 150-[address] [facility] Serum or plasma albumin aubree urement (mass/volume)Ordered By: Pepe Au on 10-26-2023 Albumin [Mass/Vol] 3.2 g/dL 3.2-5.0 [facility] Serum or plasma calcium aubree urement (mass/volume)Ordered By: Pepe Au on 10-26-2023 Calcium [Mass/Vol] 9.3 mg/dL 8.5-10.1 [facility] Serum or plasma creatinine m easurement (mass/volume)Ordered By: Pepe Au on 10-26-2023 Creatinine [Mass/Vol] 2.38 mg/dL 0.70-1.30 [facility] Comment on above: The validity of the calculated GFR & GFRAA in patients over 70 years has not been determined. Clinical correlation is essential. Serum or plasma ferritin laurie surement (mass/volume)Ordered By: Pepe Au on 10-26-2023 Ferritin [Mass/Vol] 177 ng/mL 26-388 [facility] Serum or plasma iron saturat ion measurement (mass fraction)Ordered By: [facility] Angely on 10-26-2023 Iron saturation [Mass fraction] 16.9 % 15.0-55.[address] [facility] Serum or plasma urea nitroge n measurement (mass/volume)Ordered By: Pepe Au on 10-26-2023 Urea nitrogen [Mass/Vol] 55 mg/dL 7-[address] [facility] Absolute lymphocyte countOrd ered By: [facility] Au on 09-28-2023 Lymphocytes Auto (Unsp spec) [#/Vol] 1.28 10*3/uL 0.83-4.[address] [facility] Basophil percentageOrdered B y: [facility] Au on 09-28-2023 Basophil percentage 113 mg/dL 74-106 [facility] Basophil percentage 3.5 mg/dL 2.5-4.9 [facility] Basophil percentage 141 mmol/L 136-145 [facility] Basophil percentage 4.7 mmol/L 3.5-5.1 [facility] Basophil percentage 110 mmol/L 98-107 [facility] Basophils (Bld) [#/Vol] 7.2 10*3/uL 4.4-11.[address] [facility] Basophils (Bld) [#/Vol] 5.3 10*3/uL 2.0-7.[address] [facility] Basophils/100 WBC (Bld) 73.9 % 47-70 [facility] Basophils/100 WBC (Bld) 2.1 % 0-5 [facility] Basophils/100 WBC (Bld) 0.4 % 0-1 [facility] Chloride [Moles/Vol] 110 mmol/L 98-107 [facility] Eosinophils/100 WBC (Bld) 2.1 % 0-[address] [facility] Glucose [Mass/Vol] 113 mg/dL 74-106 [facility] Comment on above: Fasting Glucose resu lt from 100 to 125 mg/dL suggests IMPAIRED HOMEOSTASIS per A.D.A. criteria. Neutrophils (Bld) [#/Vol] 5.3 10*3/uL 2.0-7.[address] [facility] Neutrophils/100 WBC (Bld) 73.9 % 47-[address] [facility] Potassium [Moles/Vol] 4.7 mmol/L 3.5-5.1 [facility] Sodium [Moles/Vol] 141 mmol/L 136-145 [facility] WBC (Bld) [#/Vol] 7.2 10*3/uL 4.4-11.0 [facility] Blood erythrocytes count (nu mber/volume)Ordered By: Pepe Au on 09-28-2023 RBC (Bld) [#/Vol] 3.28 10*6/uL 4.6-6.2 [facility] Blood hemoglobin measurement (mass/volume)Ordered By: Pepe Au on 09-28-2023 Hemoglobin (Bld) [Mass/Vol] 10.2 g/dL 13.0-16.[address] [facility] Blood lymphocytes/100 leukoc ytesOrdered By: Pepe Au on 09-28-2023 Lymphocytes/100 WBC (Bld) 17.9 % 19-[address] [facility] Blood monocytes/100 leukocyt esOrdered By: Pepe Au on 09-28-2023 Monocytes/100 WBC (Bld) 5.4 % 0-10 [facility] Blood platelet mean volumeOr dered By: Pepe Au on 09-28-2023 Platelet mean volume (Bld) [Entitic vol] 10.7 fL 6.2-12.[address] [facility] Determination of erythrocyte mean corpuscular volume (MCV)Ordered By: Pepe Au on 09-28-2023 MCV (RBC) [Entitic vol] 100.9 fL 80-94 [facility] Hematocrit Auto (Bld) [Volum e fraction]Ordered By: Pepe Au on 09-28-2023 Hematocrit (Bld) [Volume fraction] 33.1 % 40-[address] [facility] Iron measurement (mass/mass) Ordered By: Pepe Au on 09-28-2023 Iron (Unsp spec) [Mass/Mass] 49 ug/dL 65-175 [facility] Laboratory - Chemistry and C hemistry - challengeOrdered By: Pepe Au on 09-28-2023 CO2 [Moles/Vol] 27.0 mmol/L 21.0-32.[address] [facility] Urea nitrogen/Creatinine [Mass ratio] 24.4 mg/mg 10-[address] [facility] Laboratory - Hematology and Cell countsOrdered By: Pepe Au on 09-28-2023 Erythrocyte distribution width (RBC) [Entitic vol] 55.8 fL 35.1-43.[address] [facility] Erythrocyte distribution width (RBC) [Ratio] 15.2 % 11.6-14.[address] [facility] Immature granulocytes/100 WBC (Bld) 0.300 % 0.0-0.[address] [facility] Comment on above: IG% - Immature Granu locytes (promyelocytes, myelocytes and metamyelocytes) > 1% indicates that a LEFT SHIFT is Present. MCH (RBC) [Entitic mass] 31.1 pg 27.0-32.[address] [facility] Nucleated RBC/100 WBC (Bld) [Ratio] 0 % 0-[address] [facility] MCHC Auto (RBC) [Mass/Vol]Or dered By: Pepe Au on 09-28-2023 MCHC (RBC) [Mass/Vol] 30.8 g/dL 32-36 [facility] No Panel InformationOrdered By: Pepe Au on 09-28-2023 Estimated GFR (MDRD) Amer 35 mL/min >[address] [facility] Comment on above: GFR Calc Estimated GFR (MDRD) Non-Af Amer 29 mL/min >[address] [facility] Comment on above: Non- GFR Calc Parathyroid Hormone (Intact) 33.4 pg/mL 18.4-80.[address] [facility] Total Iron Binding Capacity 257 ug/dL 250-[address] [facility] 31.1 pg 27.0-32.[address] [facility] 15.2 % 11.6-14.[address] [facility] 55.8 fl 35.1-43.[address] [facility] 0.300 % 0.0-0.[address] [facility] 0 % 0-[address] [facility] 29 mL/min >[address] [facility] 35 mL/min >[address] [facility] 24.4 RATIO 10-[address] [facility] 27.0 mmol/L 21.0-32.[address] [facility] 257 ug/dL 250-[address] [facility] 33.4 pg/mL 18.4-80.[address] [facility] Platelets bldOrdered By: Zandra Au on 09-28-2023 Platelets (Bld) [#/Vol] 147 10*3/uL 150-[address] [facility] Serum or plasma albumin aubree urement (mass/volume)Ordered By: Pepe Au on 09-28-2023 Albumin [Mass/Vol] 3.1 g/dL 3.2-5.0 [facility] Serum or plasma calcium aubree urement (mass/volume)Ordered By: Pepe Au on 09-28-2023 Calcium [Mass/Vol] 9.3 mg/dL 8.5-10.1 [facility] Serum or plasma creatinine m easurement (mass/volume)Ordered By: Pepe Au on 09-28-2023 Creatinine [Mass/Vol] 2.34 mg/dL 0.70-1.30 [facility] Comment on above: The validity of the calculated GFR & GFRAA in patients over 70 years has not been determined. Clinical correlation is essential. Serum or plasma ferritin laurie surement (mass/volume)Ordered By: Pepe Au on 09-28-2023 Ferritin [Mass/Vol] 175 ng/mL 26-388 [facility] Serum or plasma iron saturat ion measurement (mass fraction)Ordered By: Pepe Au on 09-28-2023 Iron saturation [Mass fraction] 19.1 % 15.0-55.[address] [facility] Serum or plasma urea nitroge n measurement (mass/volume)Ordered By: Pepe Au on 09-28-2023 Urea nitrogen [Mass/Vol] 57 mg/dL 7-[address] [facility] Absolute lymphocyte countOrd ered By: Eladio Lucas on 09-22-2023 Lymphocytes Auto (Unsp spec) [#/Vol] 1.44 10*3/uL 0.83-4.[address] [facility] Basophil percentageOrdered B y: Eladio Lucas on 09-22-2023 Basophil percentage 129 mg/dL 74-106 [facility] Basophil percentage 137 mmol/L 136-145 [facility] Basophil percentage 4.4 mmol/L 3.5-5.1 [facility] Basophil percentage 105 mmol/L 98-107 [facility] Basophils (Bld) [#/Vol] 7.7 10*3/uL 4.4-11.[address] [facility] Basophils (Bld) [#/Vol] 5.3 10*3/uL 2.0-7.[address] [facility] Basophils/100 WBC (Bld) 68.7 % 47-70 [facility] Basophils/100 WBC (Bld) 3.7 % 0-5 [facility] Basophils/100 WBC (Bld) 0.4 % 0-1 [facility] Chloride [Moles/Vol] 105 mmol/L 98-107 [facility] Eosinophils/100 WBC (Bld) 3.7 % 0-[address] [facility] Glucose [Mass/Vol] 129 mg/dL 74-106 [facility] Comment on above: Fasting Glucose resu lt greater than or equal to 126 mg/dL suggests DIABETES MELLITUS per A.D.A. criteria. Neutrophils (Bld) [#/Vol] 5.3 10*3/uL 2.0-7.[address] [facility] Neutrophils/100 WBC (Bld) 68.7 % 47-[address] [facility] Potassium [Moles/Vol] 4.4 mmol/L 3.5-5.1 [facility] Sodium [Moles/Vol] 137 mmol/L 136-145 [facility] WBC (Bld) [#/Vol] 7.7 10*3/uL 4.4-11.0 [facility] Blood erythrocytes count (nu mber/volume)Ordered By: Eladio Lucas on 09-22-2023 RBC (Bld) [#/Vol] 3.03 10*6/uL 4.6-6.2 [facility] Blood hemoglobin measurement (mass/volume)Ordered By: Eladio Lucas on 09-22-2023 Hemoglobin (Bld) [Mass/Vol] 9.5 g/dL 13.0-16.[address] [facility] Blood lymphocytes/100 leukoc ytesOrdered By: Eladio Lucas on 09-22-2023 Lymphocytes/100 WBC (Bld) 18.8 % 19-[address] [facility] Blood monocytes/100 leukocyt esOrdered By: Eladio Lucas on 09-22-2023 Monocytes/100 WBC (Bld) 8.1 % 0-10 [facility] Blood platelet mean volumeOr dered By: Eladio Lucas on 09-22-2023 Platelet mean volume (Bld) [Entitic vol] 11.5 fL 6.2-12.[address] [facility] Determination of erythrocyte mean corpuscular volume (MCV)Ordered By: Eladio Lucas on 09-22-2023 MCV (RBC) [Entitic vol] 100.0 fL 80-94 [facility] Glucose Glucometer (BldC) [M ass/Vol]Ordered By: Eladio Lucas on 09-22-2023 Glucose [Mass/Vol] 182 mg/dL 74-106 [facility] Comment on above: MANAGEMENT OF PATIEN T CARE PER NURSING PROTOCOL Glucose [Mass/Vol] 197 mg/dL 74-106 [facility] Hematocrit Auto (Bld) [Volum e fraction]Ordered By: Eladio Lucas on 09-22-2023 Hematocrit (Bld) [Volume fraction] 30.3 % 40-[address] [facility] Laboratory - Chemistry and C hemistry - challengeOrdered By: Eladio Lucas on 09-22-2023 CO2 [Moles/Vol] 27.0 mmol/L 21.0-32.[address] [facility] Urea nitrogen/Creatinine [Mass ratio] 26.5 mg/mg 10-[address] [facility] Laboratory - Hematology and Cell countsOrdered By: Eladio Lucas on 09-22-2023 Erythrocyte distribution width (RBC) [Entitic vol] 57.0 fL 35.1-43.[address] [facility] Erythrocyte distribution width (RBC) [Ratio] 15.6 % 11.6-14.[address] [facility] Immature granulocytes/100 WBC (Bld) 0.300 % 0.0-0.[address] [facility] Comment on above: IG% - Immature Granu locytes (promyelocytes, myelocytes and metamyelocytes) > 1% indicates that a LEFT SHIFT is Present. MCH (RBC) [Entitic mass] 31.4 pg 27.0-32.[address] [facility] Nucleated RBC/100 WBC (Bld) [Ratio] 0 % 0-[address] [facility] MCHC Auto (RBC) [Mass/Vol]Or dered By: Eladio Lucas on 09-22-2023 MCHC (RBC) [Mass/Vol] 31.4 g/dL 32-36 [facility] No Panel InformationOrdered By: Eladio Lucas on 09-22-2023 Estimated Creatinine Clearance Calc 18.02 ml/min [facility] Estimated GFR (MDRD) Amer 29 mL/min >[address] [facility] Comment on above: GFR Calc Estimated GFR (MDRD) Non-Af Amer 24 mL/min >[address] [facility] Comment on above: Non- GFR Calc 31.4 pg 27.0-32.[address] [facility] 15.6 % 11.6-14.[address] [facility] 57.0 fl 35.1-43.[address] [facility] 0.300 % 0.0-0.[address] [facility] 0 % 0-[address] [facility] 24 mL/min >[address] [facility] 29 mL/min >[address] [facility] 18.02 ml/min [facility] 26.5 RATIO 10-[address] [facility] 27.0 mmol/L 21.0-32.[address] [facility] Platelets bldOrdered By: Kirby Lucas on 09-22-2023 Platelets (Bld) [#/Vol] 132 10*3/uL 150-[address] [facility] Serum or plasma calcium aubree urement (mass/volume)Ordered By: Eladio Lucas on 09-22-2023 Calcium [Mass/Vol] 9.0 mg/dL 8.5-10.1 [facility] Serum or plasma creatinine m easurement (mass/volume)Ordered By: Eladio Lucas on 09-22-2023 Creatinine [Mass/Vol] 2.75 mg/dL 0.70-1.30 [facility] Comment on above: The validity of the calculated GFR & GFRAA in patients over 70 years has not been determined. Clinical correlation is essential. Serum or plasma urea nitroge n measurement (mass/volume)Ordered By: Eladio Lucas on 09-22-2023 Urea nitrogen [Mass/Vol] 73 mg/dL 7-[address] [facility] Thin prep Papanicolaou smear with manual screeningOrdered By: Eladio Lucas on 09-22-2023 Thin prep Papanicolaou smear with manual screening 5 5-[address] [facility] Basophil percentageOrdered B y: Patricia Alcantara on 09-17-2023 Basophil percentage 7.1 g/dL 6.4-8.2 [facility] Basophil percentage 0.70 mg/dL 0.20-1.00 [facility] Bilirubin [Mass/Vol] 0.70 mg/dL 0.20-1.00 [facility] Comment on above: For patients on eltr ombopag therapy, use of Dimension [place] TBIL is not recommended. Protein [Mass/Vol] 7.1 g/dL 6.4-8.2 [facility] Laboratory - Chemistry and C hemistry - challengeOrdered By: [facility] Quinton on 09-17-2023 ALP [Catalytic activity/Vol] 173 U/L [facility] ALT [Catalytic activity/Vol] 17 U/L [facility] Globulin (S) [Mass/Vol] 4.3 g/dL 2.2-4.2 [facility] No Panel InformationOrdered By: [facility] Quinton on 09-17-2023 4.3 g/dL 2.2-4.[address] [facility] 173 U/L [facility] 17 U/L [facility] Serum or plasma albumin aubree urement (mass/volume)Ordered By: Patricia Quinton on 09-17-2023 Albumin [Mass/Vol] 2.8 g/dL 3.2-5.0 [facility] Serum or plasma albumin/glob ulin mass ratioOrdered By: Patricia Quinton on 09-17-2023 Albumin/Globulin [Mass ratio] 0.7 {ratio} 0.9-2.[address] [facility] Thin prep Papanicolaou smear with manual screeningOrdered By: Patricia Alcantara on 09-17-2023 Thin prep Papanicolaou smear with manual screening 13 U/L 15-[address] [facility] Absolute lymphocyte countOrd ered By: Cesar Medina on 09-16-2023 Lymphocytes Auto (Unsp spec) [#/Vol] 1.34 10*3/uL 0.83-4.[address] [facility] Basophil percentageOrdered B y: Cesar Medina on 09-16-2023 Basophil percentage 131 mg/dL 74-106 [facility] Basophil percentage 141 mmol/L 136-145 [facility] Basophil percentage 4.8 mmol/L 3.5-5.1 [facility] Basophil percentage 112 mmol/L 98-107 [facility] Basophils (Bld) [#/Vol] 7.1 10*3/uL 4.4-11.[address] [facility] Basophils (Bld) [#/Vol] 4.8 10*3/uL 2.0-7.[address] [facility] Basophils/100 WBC (Bld) 68.1 % 47-70 [facility] Basophils/100 WBC (Bld) 3.7 % 0-5 [facility] Basophils/100 WBC (Bld) 0.4 % 0-1 [facility] Blood erythrocytes count (nu mber/volume)Ordered By: Cesar Medina on 09-16-2023 RBC (Bld) [#/Vol] 3.16 10*6/uL 4.6-6.2 [facility] Blood hemoglobin measurement (mass/volume)Ordered By: Cesar Medina on 09-16-2023 Hemoglobin (Bld) [Mass/Vol] 10.1 g/dL 13.0-16.[address] [facility] Blood lymphocytes/100 leukoc ytesOrdered By: Cesar Medina on 09-16-2023 Lymphocytes/100 WBC (Bld) 19.0 % 19-[address] [facility] Blood monocytes/100 leukocyt esOrdered By: Cesar Medina on 09-16-2023 Monocytes/100 WBC (Bld) 8.1 % 0-10 [facility] Blood platelet mean volumeOr dered By: Cesar Medina on 09-16-2023 Platelet mean volume (Bld) [Entitic vol] 11.2 fL 6.2-12.[address] [facility] Determination of erythrocyte mean corpuscular volume (MCV)Ordered By: Cesar Medina on 09-16-2023 MCV (RBC) [Entitic vol] 101.9 fL 80-94 [facility] Hematocrit Auto (Bld) [Volum e fraction]Ordered By: Cesar Medina on 09-16-2023 Hematocrit (Bld) [Volume fraction] 32.2 % 40-[address] [facility] Laboratory - Chemistry and C hemistry - challengeOrdered By: Patricia Alcantara on 09-16-2023 Magnesium [Mass/Vol] 2.0 mg/dL 1.6-2.6 [facility] Laboratory - Chemistry and C hemistry - challengeOrdered By: Cesar Medina on 09-16-2023 Natriuretic peptide B (Bld) [Mass/Vol] 179.0 pg/mL 0-[address] [facility] Laboratory - Microbiology an d Antimicrobial susceptibilityOrdered By: Patricia Alcantara on 09-16-2023 SARS-CoV-2 (COVID-19) RNA ELIANE+probe Ql (Unsp spec) [facility] MCHC Auto (RBC) [Mass/Vol]Or dered By: Cesar Medina on 09-16-2023 MCHC (RBC) [Mass/Vol] 31.4 g/dL 32-36 [facility] No Panel InformationOrdered By: Patricia Alcantara on 09-16-2023 Troponin I High Sensitivity 45 pg/mL 3.0-78.[address] [facility] Comment on above: Please Note: New Meghana t Units and Gender Specific Reference Ranges. For more information see Policy Stat Procedure [place] High Sensitivity Troponin (TNIH) and attachments. 45 pg/mL 3.0-78.[address] [facility] 2.0 mg/dL 1.6-2.[address] [facility] No Panel InformationOrdered By: Cesar Medina on 09-16-2023 46 pg/mL 3.0-78.[address] [facility] 32.0 pg 27.0-32.[address] [facility] 16.4 % 11.6-14.[address] [facility] 60.7 fl 35.1-43.[address] [facility] 0.700 % 0.0-0.[address] [facility] 0 % 0-[address] [facility] 32 mL/min >[address] [facility] 39 mL/min >[address] [facility] 23.37 ml/min [facility] 25.0 RATIO 10-[address] [facility] 22.0 mmol/L 21.0-32.[address] [facility] 179.0 pg/mL 0-[address] [facility] Platelets bldOrdered By: Jodie Medina on 09-16-2023 Platelets (Bld) [#/Vol] 130 10*3/uL 150-[address] [facility] Respiratory pathogens detect ion panel by molecular detection methodOrdered By: Patricia Alcantara on 09-16-2023 Respiratory pathogens DNA and RNA panel ELIANE+probe (Resp) [facility] Serum or plasma calcium aubree urement (mass/volume)Ordered By: Cesar Medina on 09-16-2023 Calcium [Mass/Vol] 8.8 mg/dL 8.5-10.1 [facility] Serum or plasma creatinine m easurement (mass/volume)Ordered By: Cesar Medina on 09-16-2023 Creatinine [Mass/Vol] 2.12 mg/dL 0.70-1.30 [facility] Serum or plasma urea nitroge n measurement (mass/volume)Ordered By: Cesar Medina on 09-16-2023 Urea nitrogen [Mass/Vol] 53 mg/dL 7-[address] [facility] Serum procalcitonin measurem entOrdered By: Patricia Alcantara on 09-16-2023 Procalcitonin [Mass/Vol] 0.08 ng/mL 0.00-0.[address] [facility] Comment on above: A procalcitonin (PCT ) [...] Papanicolaou smear with manual screening 7 5-[address] [facility] Absolute lymphocyte countOrd ered By: James Camarillo on 08-22-2023 Lymphocytes Auto (Unsp spec) [#/Vol] 1.57 10*3/uL 0.83-4.[address] [facility] Basophil percentageOrdered B y: James Camarillo on 08-22-2023 Basophil percentage 131 mg/dL 74-106 [facility] Basophil percentage 139 mmol/L 136-145 [facility] Basophil percentage 4.7 mmol/L 3.5-5.1 [facility] Basophil percentage 112 mmol/L 98-107 [facility] Basophils (Bld) [#/Vol] 9.5 10*3/uL 4.4-11.[address] [facility] Basophils (Bld) [#/Vol] 7.2 10*3/uL 2.0-7.[address] [facility] Basophils/100 WBC (Bld) 75.8 % 47-70 [facility] Basophils/100 WBC (Bld) 1.4 % 0-5 [facility] Basophils/100 WBC (Bld) 0.4 % 0-1 [facility] Blood erythrocytes count (nu mber/volume)Ordered By: James Camarillo on 08-22-2023 RBC (Bld) [#/Vol] 3.28 10*6/uL 4.6-6.2 [facility] Blood hemoglobin measurement (mass/volume)Ordered By: James Camarillo on 08-22-2023 Hemoglobin (Bld) [Mass/Vol] 10.2 g/dL 13.0-16.[address] [facility] Blood lymphocytes/100 leukoc ytesOrdered By: James Camarillo on 08-22-2023 Lymphocytes/100 WBC (Bld) 16.5 % 19-[address] [facility] Blood monocytes/100 leukocyt esOrdered By: James Camarillo on 08-22-2023 Monocytes/100 WBC (Bld) 5.6 % 0-10 [facility] Blood platelet mean volumeOr dered By: James Camarillo on 08-22-2023 Platelet mean volume (Bld) [Entitic vol] 10.8 fL 6.2-12.[address] [facility] COVID-19 virus antigen assay Ordered By: Mikey Macias on 08-22-2023 SARS-CoV-2 (COVID-19) Ag IA.rapid Ql (Resp) [facility] SARS-CoV-2 (COVID-19) Ag IA.rapid Ql (Resp) [facility] Determination of erythrocyte mean corpuscular volume (MCV)Ordered By: James Camarillo on 08-22-2023 MCV (RBC) [Entitic vol] 98.2 fL 80-94 [facility] Glucose Glucometer (BldC) [M ass/Vol]Ordered By: Mikey Macias on 08-22-2023 Glucose [Mass/Vol] 170 mg/dL 74-106 [facility] Hematocrit Auto (Bld) [Volum e fraction]Ordered By: James Camarillo on 08-22-2023 Hematocrit (Bld) [Volume fraction] 32.2 % 40-[address] [facility] MCHC Auto (RBC) [Mass/Vol]Or dered By: James Camarillo on 08-22-2023 MCHC (RBC) [Mass/Vol] 31.7 g/dL 32-36 [facility] No Panel InformationOrdered By: James Camarillo on 08-22-2023 31.1 pg 27.0-32.[address] [facility] 14.2 % 11.6-14.[address] [facility] 51.4 fl 35.1-43.[address] [facility] 0.300 % 0.0-0.[address] [facility] 0 % 0-[address] [facility] 26 mL/min >[address] [facility] 32 mL/min >[address] [facility] 19.74 ml/min [facility] 18.3 RATIO 10-[address] [facility] 21.0 mmol/L 21.0-32.[address] [facility] Platelets bldOrdered By: Juan Camarillo on 08-22-2023 Platelets (Bld) [#/Vol] 137 10*3/uL 150-[address] [facility] Serum or plasma calcium aubree urement (mass/volume)Ordered By: James Camarillo on 08-22-2023 Calcium [Mass/Vol] 8.7 mg/dL 8.5-10.1 [facility] Serum or plasma creatinine m easurement (mass/volume)Ordered By: James Camarillo on 08-22-2023 Creatinine [Mass/Vol] 2.51 mg/dL 0.70-1.30 [facility] Serum or plasma urea nitroge n measurement (mass/volume)Ordered By: James Camarillo on 08-22-2023 Urea nitrogen [Mass/Vol] 46 mg/dL 7-[address] [facility] Thin prep Papanicolaou smear with manual screeningOrdered By: James Camarillo on 08-22-2023 Thin prep Papanicolaou smear with manual screening 6 5-[address] [facility] Basophil percentageOrdered B y: James Camarillo on 08-21-2023 Basophil percentage 2.6 mg/dL 2.5-4.9 [facility] No Panel InformationOrdered By: James Camarillo on 08-21-2023 1.9 mg/dL 1.6-2.[address] [facility] No Panel InformationOrdered By: James Camarillo on 08-20-2023 96.3 Seconds 24.1-36.[address] [facility] Basophil percentageOrdered B y: Patricia Alcantara on 08-19-2023 Basophil percentage 6.9 g/dL 6.4-8.2 [facility] Basophil percentage 0.50 mg/dL 0.20-1.00 [facility] No Panel InformationOrdered By: Patricia Alcantara on 08-19-2023 4.5 g/dL 2.2-4.[address] [facility] 110 U/L 45-[address] [facility] 15 U/L 16-[address] [facility] 5.80 uIU/mL 0.358-3.[address] [facility] Serum or plasma albumin aubree urement (mass/volume)Ordered By: Patricia Alcantara on 08-19-2023 Albumin [Mass/Vol] 2.4 g/dL 3.2-5.0 [facility] Serum or plasma albumin/glob ulin mass ratioOrdered By: Patricia Alcantara on 08-19-2023 Albumin/Globulin [Mass ratio] 0.5 {ratio} 0.9-2.[address] [facility] Thin prep Papanicolaou smear with manual screeningOrdered By: Patricia Alcantara on 08-19-2023 Thin prep Papanicolaou smear with manual screening 17 U/L 15-[address] [facility] Absolute lymphocyte countOrd ered By: Farhan Bonds on 08-18-2023 Lymphocytes Auto (Unsp spec) [#/Vol] 1.58 10*3/uL 0.83-4.[address] [facility] Absolute lymphocyte countOrd ered By: Jeremy Magallanes on 08-18-2023 Lymphocytes Auto (Unsp spec) [#/Vol] 1.56 10*3/uL 0.83-4.[address] [facility] Basophil percentageOrdered B y: Patricia Alcantara on 08-18-2023 Ammonia (P) [Moles/Vol] 14.0 umol/L 11-[address] [facility] Basophil percentage 14.0 umol/L 11-32 [facility] Basophil percentageOrdered B y: Farhan Bonds on 08-18-2023 Basophil percentage 151 mg/dL 74-106 [facility] Basophil percentage 139 mmol/L 136-145 [facility] Basophil percentage 4.5 mmol/L 3.5-5.1 [facility] Basophil percentage 107 mmol/L 98-107 [facility] Basophils (Bld) [#/Vol] 9.0 10*3/uL 4.4-11.[address] [facility] Basophils (Bld) [#/Vol] 6.6 10*3/uL 2.0-7.[address] [facility] Basophils/100 WBC (Bld) 73.4 % 47-70 [facility] Basophils/100 WBC (Bld) 1.8 % 0-5 [facility] Basophils/100 WBC (Bld) 0.4 % 0-1 [facility] Chloride [Moles/Vol] 107 mmol/L 98-107 [facility] Eosinophils/100 WBC (Bld) 1.8 % 0-[address] [facility] Glucose [Mass/Vol] 151 mg/dL 74-106 [facility] Comment on above: Fasting Glucose resu lt greater than or equal to 126 mg/dL suggests DIABETES MELLITUS per A.D.A. criteria. Neutrophils (Bld) [#/Vol] 6.6 10*3/uL 2.0-7.[address] [facility] Neutrophils/100 WBC (Bld) 73.4 % 47-[address] [facility] Potassium [Moles/Vol] 4.5 mmol/L 3.5-5.1 [facility] Sodium [Moles/Vol] 139 mmol/L 136-145 [facility] WBC (Bld) [#/Vol] 9.0 10*3/uL 4.4-11.0 [facility] Basophil percentageOrdered B y: Jeremy Magallanes on 08-18-2023 Basophil percentage 144 mg/dL 74-106 [facility] Basophil percentage 7.1 g/dL 6.4-8.2 [facility] Basophil percentage 0.70 mg/dL 0.20-1.00 [facility] Basophil percentage 139 mmol/L 136-145 [facility] Basophil percentage 4.2 mmol/L 3.5-5.1 [facility] Basophil percentage 106 mmol/L 98-107 [facility] Basophils (Bld) [#/Vol] 9.1 10*3/uL 4.4-11.[address] [facility] Basophils (Bld) [#/Vol] 6.8 10*3/uL 2.0-7.[address] [facility] Basophils/100 WBC (Bld) 74.4 % 47-70 [facility] Basophils/100 WBC (Bld) 1.9 % 0-5 [facility] Basophils/100 WBC (Bld) 0.4 % 0-1 [facility] Bilirubin [Mass/Vol] 0.70 mg/dL 0.20-1.00 [facility] Comment on above: For patients on eltr ombopag therapy, use of Dimension [place] TBIL is not recommended. Chloride [Moles/Vol] 106 mmol/L 98-107 [facility] Eosinophils/100 WBC (Bld) 1.9 % 0-[address] [facility] Glucose [Mass/Vol] 144 mg/dL 74-106 [facility] Comment on above: Fasting Glucose resu lt greater than or equal to 126 mg/dL suggests DIABETES MELLITUS per A.D.A. criteria. Neutrophils (Bld) [#/Vol] 6.8 10*3/uL 2.0-7.[address] [facility] Neutrophils/100 WBC (Bld) 74.4 % 47-[address] [facility] Potassium [Moles/Vol] 4.2 mmol/L 3.5-5.1 [facility] Protein [Mass/Vol] 7.1 g/dL 6.4-8.2 [facility] Sodium [Moles/Vol] 139 mmol/L 136-145 [facility] WBC (Bld) [#/Vol] 9.1 10*3/uL 4.4-11.0 [facility] Blood erythrocytes count (nu mber/volume)Ordered By: Farhan Bonds on 08-18-2023 RBC (Bld) [#/Vol] 3.47 10*6/uL 4.6-6.2 [facility] Blood erythrocytes count (nu mber/volume)Ordered By: Jeremy Magallanes on 08-18-2023 RBC (Bld) [#/Vol] 3.42 10*6/uL 4.6-6.2 [facility] Blood hemoglobin measurement (mass/volume)Ordered By: Farhan Bonds on 08-18-2023 Hemoglobin (Bld) [Mass/Vol] 10.8 g/dL 13.0-16.[address] [facility] Blood hemoglobin measurement (mass/volume)Ordered By: Jeremy Magallanes on 08-18-2023 Hemoglobin (Bld) [Mass/Vol] 10.9 g/dL 13.0-16.[address] [facility] Blood lymphocytes/100 leukoc ytesOrdered By: Farhan Bonds on 08-18-2023 Lymphocytes/100 WBC (Bld) 17.6 % - [facility] Blood lymphocytes/100 leukoc ytesOrdered By: Jeremy Magallanes on 08-18-2023 Lymphocytes/100 WBC (Bld) 17.1 % - [facility] Blood monocytes/100 leukocyt esOrdered By: Farhan Bonds on 08-18-2023 Monocytes/100 WBC (Bld) 6.4 % 0-10 [facility] Blood monocytes/100 leukocyt esOrdered By: Jeremy Magallanes on 08-18-2023 Monocytes/100 WBC (Bld) 5.9 % 0-10 [facility] Blood platelet mean volumeOr dered By: Farhan Bonds on 08-18-2023 Platelet mean volume (Bld) [Entitic vol] 11.3 fL 6.2-12.[address] [facility] Blood platelet mean volumeOr dered By: Jeremy Magallanes on 08-18-2023 Platelet mean volume (Bld) [Entitic vol] 10.5 fL 6.2-12.[address] [facility] Determination of erythrocyte mean corpuscular volume (MCV)Ordered By: Farhan Bonds on 08-18-2023 MCV (RBC) [Entitic vol] 98.8 fL 80-94 [facility] Determination of erythrocyte mean corpuscular volume (MCV)Ordered By: Jeremy Magallanes on 08-18-2023 MCV (RBC) [Entitic vol] 98.0 fL 80-94 [facility] Glucose Glucometer (BldC) [M ass/Vol]Ordered By: Jeremy Magallanes on 08-18-2023 Glucose [Mass/Vol] 147 mg/dL 74-106 [facility] Comment on above: MANAGEMENT OF PATIEN T CARE PER NURSING PROTOCOL HCO3 (BldA) [Moles/Vol]Order ed By: Patricia Alcantara on 08-18-2023 HCO3 (Bld) [Moles/Vol] 26 mmol/L 22-26 [facility] Hematocrit Auto (Bld) [Volum e fraction]Ordered By: Farhan Bonds on 08-18-2023 Hematocrit (Bld) [Volume fraction] 34.3 % 40-[address] [facility] Hematocrit Auto (Bld) [Volum e fraction]Ordered By: Jeremy Magallanes on 08-18-2023 Hematocrit (Bld) [Volume fraction] 33.5 % 40-[address] [facility] INR in Blood by Coagulation assayOrdered By: Patricia Alcantara on 08-18-2023 INR Coag (Bld) [Relative time] 1.6 {INR} [facility] Laboratory - Chemistry and C hemistry - challengeOrdered By: Patricia Alcantara on 08-18-2023 Magnesium [Mass/Vol] 1.9 mg/dL 1.6-2.6 [facility] Laboratory - Chemistry and C hemistry - challengeOrdered By: Farhan Bonds on 08-18-2023 CO2 [Moles/Vol] 29.0 mmol/L 21.0-32.[address] [facility] Urea nitrogen/Creatinine [Mass ratio] 19.7 mg/mg 10- [facility] Laboratory - Chemistry and C hemistry - challengeOrdered By: Jeremy Magallanes on 08-18-2023 ALP [Catalytic activity/Vol] 130 U/L 45-[address] [facility] ALT [Catalytic activity/Vol] 18 U/L 16-[address] [facility] CO2 [Moles/Vol] 27.0 mmol/L 21.0-32.[address] [facility] Globulin (S) [Mass/Vol] 4.1 g/dL 2.2-4.2 [facility] Urea nitrogen/Creatinine [Mass ratio] 19.5 mg/mg 10- [facility] Laboratory - CoagulationOrde red By: Patricia Alcantara on 08-18-2023 aPTT Coag (Bld) [Time] 40.0 s 24.1-36.2 [facility] PT Coag (PPP) [Time] 18.9 s 11.7-14.9 [facility] Laboratory - Hematology and Cell countsOrdered By: Farhan Bonds on 08-18-2023 Erythrocyte distribution width (RBC) [Entitic vol] 51.6 fL 35.1-43.[address] [facility] Erythrocyte distribution width (RBC) [Ratio] 14.3 % 11.6-14.[address] [facility] Immature granulocytes/100 WBC (Bld) 0.400 % 0.0-0.[address] [facility] Comment on above: IG% - Immature Granu locytes (promyelocytes, myelocytes and metamyelocytes) > 1% indicates that a LEFT SHIFT is Present. MCH (RBC) [Entitic mass] 31.1 pg 27.0-32.[address] [facility] Nucleated RBC/100 WBC (Bld) [Ratio] 0 % 0-[address] [facility] Laboratory - Hematology and Cell countsOrdered By: Jeremy Magallanes on 08-18-2023 Erythrocyte distribution width (RBC) [Entitic vol] 50.4 fL 35.1-43.[address] [facility] Erythrocyte distribution width (RBC) [Ratio] 14.0 % 11.6-14.[address] [facility] Immature granulocytes/100 WBC (Bld) 0.300 % 0.0-0.[address] [facility] Comment on above: IG% - Immature Granu locytes (promyelocytes, myelocytes and metamyelocytes) > 1% indicates that a LEFT SHIFT is Present. MCH (RBC) [Entitic mass] 31.9 pg 27.0-32.[address] [facility] Nucleated RBC/100 WBC (Bld) [Ratio] 0 % 0-[address] [facility] MCHC Auto (RBC) [Mass/Vol]Or dered By: Farhan Bonds on 08-18-2023 MCHC (RBC) [Mass/Vol] 31.5 g/dL -36 [facility] MCHC Auto (RBC) [Mass/Vol]Or dered By: Jeremy Magallanes on 08-18-2023 MCHC (RBC) [Mass/Vol] 32.5 g/dL [facility] No Panel InformationOrdered By: Patricia Alcantara on 08-18-[address] [facility] Not entered [facility] Cannula [facility] 4.[address] [facility] 47.0 mmHg 41-[address] [facility] 1 mmol/L -1.0-3.[address] [facility] 52 % 50-[address] [facility] 28 mmol/L 23-[address] [facility] 18.9 SECONDS 11.7-14.[address] [facility] 40.0 Seconds 24.1-36.[address] [facility] 1.9 mg/dL 1.6-2.[address] [facility] No Panel InformationOrdered By: Farhan Bonds on 08-18-2023 Estimated Creatinine Clearance Calc 22.22 ml/min [facility] Estimated GFR (MDRD) Amer 36 mL/min >[address] [facility] Comment on above: GFR Calc Estimated GFR (MDRD) Non-Af Amer 30 mL/min >[address] [facility] Comment on above: Non- GFR Calc Troponin I High Sensitivity 78 pg/mL 3.0-78.[address] [facility] Comment on above: Please Note: New Meghana t Units and Gender Specific Reference Ranges. For more information see Policy Stat Procedure [place] High Sensitivity Troponin (TNIH) and attachments. 31.1 pg 27.0-32.[address] [facility] 14.3 % 11.6-14.[address] [facility] 51.6 fl 35.1-43.[address] [facility] 0.400 % 0.0-0.[address] [facility] 0 % 0-[address] [facility] 30 mL/min >60 [facility] 36 mL/min >60 [facility] 22.22 ml/min [facility] 19.7 RATIO 10-[address] [facility] 78 pg/mL 3.0-78.[address] [facility] 29.0 mmol/L 21.0-32.[address] [facility] No Panel InformationOrdered By: Jeremy Magallanes on 08-18-2023 Estimated Creatinine Clearance Calc 22.52 ml/min [facility] Estimated GFR (MDRD) Amer 37 mL/min >[address] [facility] Comment on above: GFR Calc Estimated GFR (MDRD) Non-Af Amer 31 mL/min >[address] [facility] Comment on above: Non- GFR Calc 31.9 pg 27.0-32.[address] [facility] 14.0 % 11.6-14.[address] [facility] 50.4 fl 35.1-43.[address] [facility] 0.300 % 0.0-0.[address] [facility] 0 % 0-[address] [facility] 31 mL/min >[address] [facility] 37 mL/min >[address] [facility] 22.52 ml/min [facility] 19.5 RATIO 10-[address] [facility] 4.1 g/dL 2.2-4.[address] [facility] 130 U/L 45-[address] [facility] 18 U/L 16-[address] [facility] 27.0 mmol/L 21.0-32.[address] [facility] PO2 venousOrdered By: Patricia Alcantara on 08-18-2023 Oxygen (BldV) [Partial pressure] 29 mm[Hg] 25-[address] [facility] Platelets bldOrdered By: Mariusz Bonds on 08-18-2023 Platelets (Bld) [#/Vol] 153 10*3/uL 150-[address] [facility] Platelets bldOrdered By: Jeremy Magallanes on 08-18-2023 Platelets (Bld) [#/Vol] 147 10*3/uL 150-[address] [facility] Serum or plasma albumin aubree urement (mass/volume)Ordered By: Jeremy Magallanes on 08-18-2023 Albumin [Mass/Vol] 3.0 g/dL 3.2-5.0 [facility] Serum or plasma albumin/glob ulin mass ratioOrdered By: Jeremy Magallanes on 08-18-2023 Albumin/Globulin [Mass ratio] 0.7 {ratio} 0.9-2.[address] [facility] Serum or plasma calcium aubree urement (mass/volume)Ordered By: Farhan Bonds on 08-18-2023 Calcium [Mass/Vol] 9.6 mg/dL 8.5-10.1 [facility] Serum or plasma calcium aubree urement (mass/volume)Ordered By: Jeremy Magallanes on 08-18-2023 Calcium [Mass/Vol] 9.4 mg/dL 8.5-10.1 [facility] Serum or plasma creatinine m easurement (mass/volume)Ordered By: Farhan Bonds on 08-18-2023 Creatinine [Mass/Vol] 2.23 mg/dL 0.70-1.30 [facility] Comment on above: The validity of the calculated GFR & GFRAA in patients over 70 years has not been determined. Clinical correlation is essential. Serum or plasma creatinine m easurement (mass/volume)Ordered By: Jeremy Magallanes on 08-18-2023 Creatinine [Mass/Vol] 2.20 mg/dL 0.70-1.30 [facility] Comment on above: The validity of the calculated GFR & GFRAA in patients over 70 years has not been determined. Clinical correlation is essential. Serum or plasma urea nitroge n measurement (mass/volume)Ordered By: Farhan Bonds on 08-18-2023 Urea nitrogen [Mass/Vol] 44 mg/dL 06-[address] [facility] Serum or plasma urea nitroge n measurement (mass/volume)Ordered By: Jeremy Magallanes on 08-18-2023 Urea nitrogen [Mass/Vol] 43 mg/dL 06-[address] [facility] Thin prep Papanicolaou smear with manual screeningOrdered By: Farhan Bonds on 08-18-2023 Thin prep Papanicolaou smear with manual screening 3 5-[address] [facility] Thin prep Papanicolaou smear with manual screeningOrdered By: Jeremy Magallanes on 08-18-2023 Thin prep Papanicolaou smear with manual screening 18 U/L 15-[address] [facility] Thin prep Papanicolaou smear with manual screening 6 5-[address] [facility] pH measurementOrdered By: Dia Alcantara on 08-18-2023 pH (Unsp spec) 7.36 [pH] 7.32-7.[address] [facility] COVID-19 virus antigen assay Ordered By: Jeremy Magallanes on 08-17-2023 SARS-CoV-2 (COVID-19) Ag IA.rapid Ql (Resp) [facility] SARS-CoV-2 (COVID-19) Ag IA.rapid Ql (Resp) [facility] Glucose Glucometer (BldC) [M ass/Vol]Ordered By: Jeremy Magallanes on 08-11-2023 Glucose [Mass/Vol] 105 mg/dL 74-106 [facility] Comment on above: MANAGEMENT OF PATIEN T CARE PER NURSING PROTOCOL Absolute lymphocyte countOrd ered By: Jeermy Magallanes on 08-10-2023 Lymphocytes Auto (Unsp spec) [#/Vol] 1.95 10*3/uL 0.83-4.[address] [facility] Basophil percentageOrdered B y: Jeremy Magallanes on 08-10-2023 Basophils/100 WBC (Bld) 0.5 % 0-1 [facility] Chloride [Moles/Vol] 106 mmol/L 98-107 [facility] Eosinophils/100 WBC (Bld) 2.2 % 0-[address] [facility] Glucose [Mass/Vol] 188 mg/dL 74-106 [facility] Comment on above: Fasting Glucose resu lt greater than or equal to 126 mg/dL suggests DIABETES MELLITUS per A.D.A. criteria. Neutrophils (Bld) [#/Vol] 6.0 10*3/uL 2.0-7.[address] [facility] Neutrophils/100 WBC (Bld) 69.3 % 47-[address] [facility] Potassium [Moles/Vol] 4.1 mmol/L 3.5-5.1 [facility] Sodium [Moles/Vol] 138 mmol/L 136-145 [facility] WBC (Bld) [#/Vol] 8.7 10*3/uL 4.4-11.0 [facility] Blood erythrocytes count (nu mber/volume)Ordered By: Jeremy Magallanes on 08-10-2023 RBC (Bld) [#/Vol] 3.49 10*6/uL 4.6-6.2 [facility] Blood hemoglobin measurement (mass/volume)Ordered By: Jeremy Magallanes on 08-10-2023 Hemoglobin (Bld) [Mass/Vol] 10.9 g/dL 13.0-16.[address] [facility] Blood lymphocytes/100 leukoc ytesOrdered By: Jeremy Magallanes on 08-10-2023 Lymphocytes/100 WBC (Bld) 22.5 % 19-[address] [facility] Blood monocytes/100 leukocyt esOrdered By: [facility] on 08-10-2023 Monocytes/100 WBC (Bld) 5.2 % 0-10 [facility] Blood platelet mean volumeOr dered By: Jeremy Magallanes on 08-10-2023 Platelet mean volume (Bld) [Entitic vol] 10.6 fL 6.2-12.[address] [facility] Determination of erythrocyte mean corpuscular volume (MCV)Ordered By: Jeremy Magallanes on 08-10-2023 MCV (RBC) [Entitic vol] 99.7 fL 80-94 [facility] Hematocrit Auto (Bld) [Volum e fraction]Ordered By: [facility] 08-10-2023 Hematocrit (Bld) [Volume fraction] 34.8 % 40-[address] [facility] Laboratory - Chemistry and C hemistry - challengeOrdered By: [facility] 08-10-2023 CO2 [Moles/Vol] 26.0 mmol/L 21.0-32.[address] [facility] Urea nitrogen/Creatinine [Mass ratio] 22.1 mg/mg 10-[address] [facility] Laboratory - Hematology and Cell countsOrdered By: Jeremy [facility] on 08-10-2023 Erythrocyte distribution width (RBC) [Entitic vol] 51.8 fL 35.1-43.[address] [facility] Erythrocyte distribution width (RBC) [Ratio] 14.4 % 11.6-14.[address] [facility] Immature granulocytes/100 WBC (Bld) 0.300 % 0.0-0.[address] [facility] Comment on above: IG% - Immature Granu locytes (promyelocytes, myelocytes and metamyelocytes) > 1% indicates that a LEFT SHIFT is Present. MCH (RBC) [Entitic mass] 31.2 pg 27.0-32.[address] [facility] Nucleated RBC/100 WBC (Bld) [Ratio] 0 % 0-[address] [facility] MCHC Auto (RBC) [Mass/Vol]Or dered By: Jeremy Magallanes on 08-10-2023 MCHC (RBC) [Mass/Vol] 31.3 g/dL 32-36 [facility] No Panel InformationOrdered By: Jeremy Magallanes on 08-10-2023 Estimated Creatinine Clearance Calc 21.08 ml/min [facility] Estimated GFR (MDRD) Amer 34 mL/min >[address] [facility] Comment on above: GFR Calc Estimated GFR (MDRD) Non-Af Amer 28 mL/min >[address] [facility] Comment on above: Non- GFR Calc Platelets bldOrdered By: Jeremy Magallanes on 08-10-2023 Platelets (Bld) [#/Vol] 136 10*3/uL 150-[address] [facility] Serum or plasma calcium aubree urement (mass/volume)Ordered By: Jeremy Magallanes on 08-10-2023 Calcium [Mass/Vol] 9.7 mg/dL 8.5-10.1 [facility] Serum or plasma creatinine m easurement (mass/volume)Ordered By: Jeremy Magallanes on 08-10-2023 Creatinine [Mass/Vol] 2.35 mg/dL 0.70-1.30 [facility] Comment on above: The validity of the calculated GFR & GFRAA in patients over 70 years has not been determined. Clinical correlation is essential. Serum or plasma urea nitroge n measurement (mass/volume)Ordered By: Jeremy Magallanes on 08-10-2023 Urea nitrogen [Mass/Vol] 52 mg/dL 7-[address] [facility] Thin prep Papanicolaou smear with manual screeningOrdered By: Jeremy Magallanes 08-10-2023 Thin prep Papanicolaou smear with manual screening 6 5-[address] [facility] COVID-19 virus antigen assay Ordered By: Jeremy Magallanes on 08-09-2023 SARS-CoV-2 (COVID-19) Ag IA.rapid Ql (Resp) [facility] Glucose Glucometer (BldC) [M ass/Vol]Ordered By: Jeremy Magallanes on 07-27-2023 Glucose [Mass/Vol] 83 mg/dL 74-106 [facility] Comment on above: MANAGEMENT OF PATIEN T CARE PER NURSING PROTOCOL Absolute lymphocyte countOrd ered By: Jeremy Magallanes on 07-25-2023 Lymphocytes Auto (Unsp spec) [#/Vol] 1.42 10*3/uL 0.83-4.[address] [facility] Basophil percentageOrdered B y: Jeremy Magallanes on 07-25-2023 Basophils/100 WBC (Bld) 0.5 % 0-1 [facility] Chloride [Moles/Vol] 114 mmol/L 98-107 [facility] Eosinophils/100 WBC (Bld) 4.1 % 0-[address] [facility] Glucose [Mass/Vol] 92 mg/dL 74-106 [facility] Neutrophils (Bld) [#/Vol] 5.4 10*3/uL 2.0-7.[address] [facility] Neutrophils/100 WBC (Bld) 69.0 % 47-[address] [facility] Potassium [Moles/Vol] 4.3 mmol/L 3.5-5.1 [facility] Sodium [Moles/Vol] 142 mmol/L 136-145 [facility] WBC (Bld) [#/Vol] 7.8 10*3/uL 4.4-11.0 [facility] Blood erythrocytes count (nu mber/volume)Ordered By: Jeremy Magallanes on 07-25-2023 RBC (Bld) [#/Vol] 2.97 10*6/uL 4.6-6.2 [facility] Blood hemoglobin measurement (mass/volume)Ordered By: Jeremy Magallanes on 07-25-2023 Hemoglobin (Bld) [Mass/Vol] 9.6 g/dL 13.0-16.[address] [facility] Blood lymphocytes/100 leukoc ytesOrdered By: Jeremy Magallanes on 07-25-2023 Lymphocytes/100 WBC (Bld) 18.2 % 19-[address] [facility] Blood monocytes/100 leukocyt esOrdered By: Jeremy Magallanes on 07-25-2023 Monocytes/100 WBC (Bld) 7.8 % 0-10 [facility] Blood platelet mean volumeOr dered By: Jeremy Magallanes on 07-25-2023 Platelet mean volume (Bld) [Entitic vol] 10.7 fL 6.2-12.[address] [facility] Determination of erythrocyte mean corpuscular volume (MCV)Ordered By: Jeremy Magallanes on 07-25-2023 MCV (RBC) [Entitic vol] 99.0 fL 80-94 [facility] Hematocrit Auto (Bld) [Volum e fraction]Ordered By: Jeremy Magallanes on 07-25-2023 Hematocrit (Bld) [Volume fraction] 29.4 % 40-[address] [facility] Laboratory - Chemistry and C hemistry - challengeOrdered By: Jeremy Magallanes on 07-25-2023 CO2 [Moles/Vol] 23.0 mmol/L 21.0-32.[address] [facility] Urea nitrogen/Creatinine [Mass ratio] 27.4 mg/mg 10-[address] [facility] Laboratory - Hematology and Cell countsOrdered By: Jeremy Magallanes on 07-25-2023 Erythrocyte distribution width (RBC) [Entitic vol] 55.1 fL 35.1-43.[address] [facility] Erythrocyte distribution width (RBC) [Ratio] 15.3 % 11.6-14.[address] [facility] Immature granulocytes/100 WBC (Bld) 0.400 % 0.0-0.[address] [facility] Comment on above: IG% - Immature Granu locytes (promyelocytes, myelocytes and metamyelocytes) > 1% indicates that a LEFT SHIFT is Present. MCH (RBC) [Entitic mass] 32.3 pg 27.0-32.[address] [facility] Nucleated RBC/100 WBC (Bld) [Ratio] 0 % 0-[address] [facility] MCHC Auto (RBC) [Mass/Vol]Or dered By: Jeremy Magallanes on 07-25-2023 MCHC (RBC) [Mass/Vol] 32.7 g/dL 32-36 [facility] Comment on above: Delta: 31.1 on 07/21 No Panel InformationOrdered By: Jeremy Magallanes on 07-25-2023 Estimated Creatinine Clearance Calc 20.90 ml/min [facility] Estimated GFR (MDRD) Amer 34 mL/min >[address] [facility] Comment on above: GFR Calc Estimated GFR (MDRD) Non-Af Amer 28 mL/min >[address] [facility] Comment on above: Non- GFR Calc Platelets bldOrdered By: Jeremy Magallanes on 07-25-2023 Platelets (Bld) [#/Vol] 135 10*3/uL 150-[address] [facility] Serum or plasma calcium aubree urement (mass/volume)Ordered By: Jeremy Magallanes on 07-25-2023 Calcium [Mass/Vol] 9.1 mg/dL 8.5-10.1 [facility] Serum or plasma creatinine m easurement (mass/volume)Ordered By: Jeremy Magallanes on 07-25-2023 Creatinine [Mass/Vol] 2.37 mg/dL 0.70-1.30 [facility] Comment on above: The validity of the calculated GFR & GFRAA in patients over 70 years has not been determined. Clinical correlation is essential. Serum or plasma urea nitroge n measurement (mass/volume)Ordered By: Jeremy Magallanes on 07-25-2023 Urea nitrogen [Mass/Vol] 65 mg/dL 7-[address] [facility] Thin prep Papanicolaou smear with manual screeningOrdered By: Jeremy Magallanes on 07-25-2023 Thin prep Papanicolaou smear with manual screening 5 5-[address] [facility] Basophil percentageOrdered B y: Jeremy Magallanes on 07-21-2023 Basophil percentage 0-5 SEEN /hpf 0-5 [facility] Bilirubin Test strip Ql (U)O rdered By: Jeremy Magallanes on 07-21-2023 Bilirubin Ql (U) Negative Negative [facility] Culture, urineOrdered By: Jono Magallanes on 07-21-2023 Bacteria identified Cx Nom (U) Culture exhibits no growth. [facility] Bacteria identified Cx Nom (U) Culture exhibits no growth. [facility] Ketones Test strip Ql (U)Ord ered By: Jeremy Magallanes on 07-21-2023 Ketones Ql (U) Negative Negative [facility] Mucus LM Ql (Urine sed)Order ed By: Jeremy Magallanes on 07-21-2023 Mucus Ql (Urine sed) 0 SEEN /hpf [facility] Nitrite Test strip Ql (U)Ord ered By: Jeremy Magallanes on 07-21-2023 Nitrite Ql (U) Negative Negative [facility] Protein Test strip Ql (U)Ord ered By: Jeremy Magallanes on 07-21-2023 Protein Ql (U) 30 mg/dl Negative [facility] Squamous epithelial cells de tection in urine sediment by light microscopyOrdered By: Jeremy Magallanes on 07-21-2023 Epithelial cells.squamous LM Ql (Urine sed) 0 SEEN /hpf 0-[address] [facility] Urine blood detectionOrdered By: Jeremy Magallanes on 07-21-2023 RBC Ql (U) Negative Negative [facility] RBC Ql (U) 0 SEEN /hpf 0-[address] [facility] Urine clarityOrdered By: Jeremy Magallanes on 07-21-2023 Clarity (U) Clear Clear [facility] Urine color determinationOrd ered By: Jeremy Magallanes on 07-21-2023 Color (U) Yellow Yellow [facility] Urine glucose detectionOrder ed By: Jeremy Magallanes on 07-21-2023 Glucose Ql (U) Normal mg/dl Normal [facility] Urine leukocyte esterase det ection by dipstickOrdered By: Jeremy Magallanes on 07-21-2023 Leukocyte esterase Test strip Ql (U) Negative Negative [facility] Urine pHOrdered By: Jeremy Magallanes on 07-21-2023 pH (U) 5.0 [pH] 5.0 - 8.[address] [facility] Urine sediment bacteria coun t by microscopy (number/high power field)Ordered By: Jeremy Magallanes on 07-21-2023 Bacteria LM.HPF (Urine sed) [#/Area] 0 /[HPF] None Seen [facility] Urine specific gravity measu rementOrdered By: Jeremy Magallanes on 07-21-2023 Specific gravity (U) [Rel density] 1.015 1.002-1.[address] [facility] Urobilinogen Auto test strip Ql (U)Ordered By: Jeremy Magallanes on 07-21-2023 Urobilinogen Ql (U) Normal mg/dl Normal [facility] Laboratory - Chemistry and C hemistry - challengeOrdered By: Jereym Magallanes on 07-12-2023 Natriuretic peptide B (Bld) [Mass/Vol] 174.5 pg/mL 0-[address] [facility] No Panel InformationOrdered By: Jeremy Magallanes on 07-12-2023 174.5 pg/mL 0-[address] [facility] Levetiracetam (Keppra) Level 39.0 ug/mL 10.0-40.[address] [facility] Comment on above: Performed at: [facility] [address] [id number] Director: Suzy Adames MD, Phone: [phone] 39.0 ug/mL 10.0-40.[address] [facility] Absolute lymphocyte countOrd ered By: Jeremy Magallanes on 07-11-2023 Lymphocytes Auto (Unsp spec) [#/Vol] 0.89 10*3/uL 0.83-4.[address] [facility] Basophil percentageOrdered B y: Jeremy Magallanes on 07-11-2023 Basophil percentage 141 mg/dL 74-106 [facility] Basophil percentage 136 mmol/L 136-145 [facility] Basophil percentage 5.0 mmol/L 3.5-5.1 [facility] Basophil percentage 109 mmol/L 98-107 [facility] Basophils (Bld) [#/Vol] 9.1 10*3/uL 4.4-11.[address] [facility] Basophils (Bld) [#/Vol] 7.0 10*3/uL 2.0-7.[address] [facility] Basophils/100 WBC (Bld) 76.7 % 47-70 [facility] Basophils/100 WBC (Bld) 3.2 % 0-5 [facility] Basophils/100 WBC (Bld) 0.4 % 0-1 [facility] Blood erythrocytes count (nu mber/volume)Ordered By: Jeremy Magallanes on 07-11-2023 RBC (Bld) [#/Vol] 3.18 10*6/uL 4.6-6.2 [facility] Blood hemoglobin measurement (mass/volume)Ordered By: Jeremy Magallanes on 07-11-2023 Hemoglobin (Bld) [Mass/Vol] 10.2 g/dL 13.0-16.[address] [facility] Blood lymphocytes/100 leukoc ytesOrdered By: Jeremy Magallanes on 07-11-2023 Lymphocytes/100 WBC (Bld) 9.8 % 19-[address] [facility] Blood monocytes/100 leukocyt esOrdered By: Jeremy Magallanes on 07-11-2023 Monocytes/100 WBC (Bld) 9.5 % 0-10 [facility] Blood platelet mean volumeOr dered By: Jeremy Magallanes on 07-11-2023 Platelet mean volume (Bld) [Entitic vol] 10.5 fL 6.2-12.[address] [facility] Determination of erythrocyte mean corpuscular volume (MCV)Ordered By: Jeremy Magallanes on 07-11-2023 MCV (RBC) [Entitic vol] 100.0 fL 80-94 [facility] Glucose Glucometer (BldC) [M ass/Vol]Ordered By: Jeremy Magallanes on 07-11-2023 Glucose [Mass/Vol] 132 mg/dL 74-106 [facility] Hematocrit Auto (Bld) [Volum e fraction]Ordered By: Jeremy Magallanes 07-11-2023 Hematocrit (Bld) [Volume fraction] 31.8 % 40-[address] [facility] MCHC Auto (RBC) [Mass/Vol]Or dered By: Jeremy Magallanes 07-11-2023 MCHC (RBC) [Mass/Vol] 32.1 g/dL 32-36 [facility] No Panel InformationOrdered By: Jeremy Magallanes on 07-11-2023 32.1 pg 27.0-32.[address] [facility] 15.2 % 11.6-14.[address] [facility] 53.7 fl 35.1-43.[address] [facility] 0.400 % 0.0-0.[address] [facility] 0 % 0-[address] [facility] 28 mL/min >[address] [facility] 33 mL/min >[address] [facility] 20.56 ml/min [facility] 27.8 RATIO 10-[address] [facility] 20.0 mmol/L 21.0-32.[address] [facility] Platelets bldOrdered By: Jeremy Magallanes 07-11-2023 Platelets (Bld) [#/Vol] 161 10*3/uL 150-[address] [facility] Serum or plasma calcium aubree urement (mass/volume)Ordered By: Jeremy Magallanes 07-11-2023 Calcium [Mass/Vol] 9.0 mg/dL 8.5-10.1 [facility] Serum or plasma creatinine m easurement (mass/volume)Ordered By: Jeremy Magallanes 07-11-2023 Creatinine [Mass/Vol] 2.41 mg/dL 0.70-1.30 [facility] Serum or plasma urea nitroge n measurement (mass/volume)Ordered By: Jeremy Magallanes on 07-11-2023 Urea nitrogen [Mass/Vol] 67 mg/dL 7-[address] [facility] Thin prep Papanicolaou smear with manual screeningOrdered By: Jeremy Magallanes on 07-11-2023 Thin prep Papanicolaou smear with manual screening 7 5-[address] [facility] Basophil percentageOrdered B y: Jeremy Magallanes on 07-08-2023 Basophil percentage 6.7 g/dL 6.4-8.2 [facility] Basophil percentage 1.10 mg/dL 0.20-1.00 [facility] Bilirubin [Mass/Vol] 1.10 mg/dL 0.20-1.00 [facility] Comment on above: For patients on eltr ombopag therapy, use of Dimension Et[place] TBIL is not recommended. Protein [Mass/Vol] 6.7 g/dL 6.4-8.2 [facility] Laboratory - Chemistry and C hemistry - challengeOrdered By: Jeremy Magallanes on 07-08-2023 ALP [Catalytic activity/Vol] 144 U/L 45-[address] [facility] ALT [Catalytic activity/Vol] 19 U/L 16- [facility] Globulin (S) [Mass/Vol] 4.0 g/dL 2.2-4.2 [facility] No Panel InformationOrdered By: Jeremy Magallanes on 07-08-2023 4.0 g/dL 2.2-4.[address] [facility] 144 U/L 45-[address] [facility] 19 U/L [facility] 329.5 pg/mL 0-[address] [facility] Serum or plasma albumin aubree urement (mass/volume)Ordered By: Jeremy Magallanes on 07-08-2023 Albumin [Mass/Vol] 2.7 g/dL 3.2-5.0 [facility] Serum or plasma albumin/glob ulin mass ratioOrdered By: Jeremy Magallanes on 07-08-2023 Albumin/Globulin [Mass ratio] 0.7 {ratio} 0.9-2.[address] [facility] Thin prep Papanicolaou smear with manual screeningOrdered By: Jeremy Magallanes on 07-08-2023 Thin prep Papanicolaou smear with manual screening 20 U/L 15-[address] [facility] Basophil percentageOrdered B y: Jeremy Magallanes on 07-07-2023 Basophil percentage 0 SEEN /hpf 0-5 [facility] Bilirubin Test strip Ql (U)O rdered By: Jeremy Magallanes on 07-07-2023 Bilirubin Ql (U) Negative Negative [facility] Culture, urineOrdered By: Jono Magallanes on 07-07-2023 Bacteria identified Cx Nom (U) Culture exhibits no growth. [facility] Ketones Test strip Ql (U)Ord ered By: Jeremy Magallanes on 07-07-2023 Ketones Ql (U) Negative Negative [facility] Mucus LM Ql (Urine sed)Order ed By: Jeremy Magallanes on 07-07-2023 Mucus Ql (Urine sed) 0 SEEN /hpf [facility] Nitrite Test strip Ql (U)Ord ered By: Jeremy Magallanes on 07-07-2023 Nitrite Ql (U) Negative Negative [facility] Protein Test strip Ql (U)Ord ered By: Jeremy Magallanes on 07-07-2023 Protein Ql (U) 100 mg/dl Negative [facility] Squamous epithelial cells de tection in urine sediment by light microscopyOrdered By: Jeremy Magallanes on 07-07-2023 Epithelial cells.squamous LM Ql (Urine sed) 0 SEEN /hpf 0-[address] [facility] Urine blood detectionOrdered By: Jeremy Magallanes on 07-07-2023 RBC Ql (U) 250 /ul Negative [facility] RBC Ql (U) 5-10 SEEN /hpf 0-[address] [facility] Urine clarityOrdered By: Jeremy Magallanes on 07-07-2023 Clarity (U) Clear Clear [facility] Urine color determinationOrd ered By: Jeremy Magallanes on 07-07-2023 Color (U) Yellow Yellow [facility] Urine glucose detectionOrder ed By: Jeremy Magallanes on 07-07-2023 Glucose Ql (U) Normal mg/dl Normal [facility] Urine leukocyte esterase det ection by dipstickOrdered By: Jeremy Magallanes on 07-07-2023 Leukocyte esterase Test strip Ql (U) Negative Negative [facility] Urine pHOrdered By: Jeremy Magallanes on 07-07-2023 pH (U) 6.0 [pH] 5.0 - 8.[address] [facility] Urine sediment bacteria coun t by microscopy (number/high power field)Ordered By: Jeremy Magallanes on 07-07-2023 Bacteria LM.HPF (Urine sed) [#/Area] 0 /[HPF] None Seen [facility] Urine specific gravity measu rementOrdered By: Jeremy Magallanes on 07-07-2023 Specific gravity (U) [Rel density] 1.015 1.002-1.[address] [facility] Urobilinogen Auto test strip Ql (U)Ordered By: Jeremy Magallanes on 07-07-2023 Urobilinogen Ql (U) Normal mg/dl Normal [facility] No Panel InformationOrdered By: Jeremy Magallanes on 07-06-2023 Vitamin D 25-Hydroxy 42.3 ng/mL [facility] Comment on above: Vitamin D 25(OH) Sta tus Range Deficiency <20 ng/mL (50nmol/L) Insufficiency 20 - 30 ng/mL (50 - 75 nmol/L) Sufficiency 30 - 100 ng/mL (75 - 250 nmol/L) Toxicity >100 ng/mL (>250 nmol/L) 42.3 ng/mL [facility] Stool gastrointestinal hemog lobin detection by immunologic methodOrdered By: Jeremy Magallanes on 07-06-2023 Lower GI hemoglobin IA Ql (Stl) [facility] Stool gastrointestinal hemog lobin detection by immunologic methodOrdered By: Jeremy Magallanes on 07-05-2023 Lower GI hemoglobin IA Ql (Stl) [facility] Glucose Glucometer (BldC) [M ass/Vol]Ordered By: Woody Brunson on 07-03-2023 Glucose [Mass/Vol] 180 mg/dL 74-106 [facility] Comment on above: MANAGEMENT OF PATIEN T CARE PER NURSING PROTOCOL Absolute lymphocyte countOrd ered By: Woody Brunson on 07-01-2023 Lymphocytes Auto (Unsp spec) [#/Vol] 1.34 10*3/uL 0.83-4.[address] [facility] Basophil percentageOrdered B y: Woody Brunson on 07-01-2023 Basophil percentage 129 mg/dL 74-106 [facility] Basophil percentage 7.2 g/dL 6.4-8.2 [facility] Basophil percentage 1.50 mg/dL 0.20-1.00 [facility] Basophil percentage 139 mmol/L 136-145 [facility] Basophil percentage 4.4 mmol/L 3.5-5.1 [facility] Basophil percentage 109 mmol/L 98-107 [facility] Basophils (Bld) [#/Vol] 9.3 10*3/uL 4.4-11.[address] [facility] Basophils (Bld) [#/Vol] 7.1 10*3/uL 2.0-7.[address] [facility] Basophils/100 WBC (Bld) 0.4 % 0-1 [facility] Basophils/100 WBC (Bld) 76.6 % 47-70 [facility] Basophils/100 WBC (Bld) 0.6 % 0-5 [facility] Bilirubin [Mass/Vol] 1.50 mg/dL 0.20-1.00 [facility] Comment on above: For patients on eltr ombopag therapy, use of Dimension [place] TBIL is not recommended. Chloride [Moles/Vol] 109 mmol/L 98-107 [facility] Eosinophils/100 WBC (Bld) 0.6 % 0-[address] [facility] Glucose [Mass/Vol] 129 mg/dL 74-106 [facility] Comment on above: Fasting Glucose resu lt greater than or equal to 126 mg/dL suggests DIABETES MELLITUS per A.D.A. criteria. Neutrophils (Bld) [#/Vol] 7.1 10*3/uL 2.0-7.[address] [facility] Neutrophils/100 WBC (Bld) 76.6 % 47-[address] [facility] Potassium [Moles/Vol] 4.4 mmol/L 3.5-5.1 [facility] Protein [Mass/Vol] 7.2 g/dL 6.4-8.2 [facility] Sodium [Moles/Vol] 139 mmol/L 136-145 [facility] WBC (Bld) [#/Vol] 9.3 10*3/uL 4.4-11.0 [facility] Blood erythrocytes count (nu mber/volume)Ordered By: Woody Brunson on 07-01-2023 RBC (Bld) [#/Vol] 3.55 10*6/uL 4.6-6.2 [facility] Blood hemoglobin measurement (mass/volume)Ordered By: Woody Brunson on 07-01-2023 Hemoglobin (Bld) [Mass/Vol] 11.4 g/dL 13.0-16.[address] [facility] Blood lymphocytes/100 leukoc ytesOrdered By: Woody Brunson on 07-01-2023 Lymphocytes/100 WBC (Bld) 14.4 % 19-[address] [facility] Blood monocytes/100 leukocyt esOrdered By: Woody Brunson on 07-01-2023 Monocytes/100 WBC (Bld) 7.7 % 0-10 [facility] Blood platelet mean volumeOr dered By: Woody Brunson on 07-01-2023 Platelet mean volume (Bld) [Entitic vol] 11.0 fL 6.2-12.[address] [facility] Determination of erythrocyte mean corpuscular volume (MCV)Ordered By: Woody Brunosn on 07-01-2023 MCV (RBC) [Entitic vol] 98.0 fL 80-94 [facility] Hematocrit Auto (Bld) [Volum e fraction]Ordered By: Woody Brunson on 07-01-2023 Hematocrit (Bld) [Volume fraction] 34.8 % 40-[address] [facility] Laboratory - Chemistry and C hemistry - challengeOrdered By: Woody Brunson on 07-01-2023 ALP [Catalytic activity/Vol] 134 U/L 45-[address] [facility] ALT [Catalytic activity/Vol] 14 U/L 16-[address] [facility] CO2 [Moles/Vol] 25.0 mmol/L 21.0-32.[address] [facility] Globulin (S) [Mass/Vol] 4.1 g/dL 2.2-4.2 [facility] Urea nitrogen/Creatinine [Mass ratio] 20.8 mg/mg 10-[address] [facility] Laboratory - Hematology and Cell countsOrdered By: Woody Brunson on 07-01-2023 Erythrocyte distribution width (RBC) [Entitic vol] 51.6 fL 35.1-43.[address] [facility] Erythrocyte distribution width (RBC) [Ratio] 14.3 % 11.6-14.[address] [facility] Immature granulocytes/100 WBC (Bld) 0.300 % 0.0-0.[address] [facility] Comment on above: IG% - Immature Granu locytes (promyelocytes, myelocytes and metamyelocytes) > 1% indicates that a LEFT SHIFT is Present. MCH (RBC) [Entitic mass] 32.1 pg 27.0-32.[address] [facility] Nucleated RBC/100 WBC (Bld) [Ratio] 0 % 0-[address] [facility] MCHC Auto (RBC) [Mass/Vol]Or dered By: Woody Brunson on 07-01-2023 MCHC (RBC) [Mass/Vol] 32.8 g/dL 32-36 [facility] No Panel InformationOrdered By: Woody Brunson on 07-01-2023 Estimated Creatinine Clearance Calc 23.37 ml/min [facility] Estimated GFR (MDRD) Amer 39 mL/min >[address] [facility] Comment on above: GFR Calc Estimated GFR (MDRD) Non-Af Amer 32 mL/min >[address] [facility] Comment on above: Non- GFR Calc 32.1 pg 27.0-32.[address] [facility] 14.3 % 11.6-14.[address] [facility] 51.6 fl 35.1-43.[address] [facility] 0.300 % 0.0-0.[address] [facility] 0 % 0-[address] [facility] 32 mL/min >[address] [facility] 39 mL/min >[address] [facility] 23.37 ml/min [facility] 20.8 RATIO 10-[address] [facility] 4.1 g/dL 2.2-4.[address] [facility] 134 U/L 45-[address] [facility] 14 U/L 16-[address] [facility] 25.0 mmol/L 21.0-32.[address] [facility] Platelets bldOrdered By: Ksenia Brunson on 07-01-2023 Platelets (Bld) [#/Vol] 116 10*3/uL 150-[address] [facility] Serum or plasma albumin aubree urement (mass/volume)Ordered By: Woody Brunson on 07-01-2023 Albumin [Mass/Vol] 3.1 g/dL 3.2-5.0 [facility] Serum or plasma albumin/glob ulin mass ratioOrdered By: Woody Brunson on 07-01-2023 Albumin/Globulin [Mass ratio] 0.8 {ratio} 0.9-2.[address] [facility] Serum or plasma calcium aubree urement (mass/volume)Ordered By: Woody Brunson on 07-01-2023 Calcium [Mass/Vol] 9.0 mg/dL 8.5-10.1 [facility] Serum or plasma creatinine m easurement (mass/volume)Ordered By: Woody Brunson on 07-01-2023 Creatinine [Mass/Vol] 2.12 mg/dL 0.70-1.30 [facility] Comment on above: The validity of the calculated GFR & GFRAA in patients over 70 years has not been determined. Clinical correlation is essential. Serum or plasma urea nitroge n measurement (mass/volume)Ordered By: Woody Brunson on 07-01-2023 Urea nitrogen [Mass/Vol] 44 mg/dL 7-[address] [facility] Thin prep Papanicolaou smear with manual screeningOrdered By: Woody Brunson on 07-01-2023 Thin prep Papanicolaou smear with manual screening 21 U/L 15-[address] [facility] Thin prep Papanicolaou smear with manual screening 5 5-[address] [facility] Assessment of wrist artery p atency prior to arterial punctureOrdered By: Woody Brunson on 06-30-2023 Arterial patency Wrist artery --pre arterial puncture Positive [facility] Base excessOrdered By: Woody Brunson on 06-30-2023 Base excess Calc (BldV) [Moles/Vol] 0 mmol/L -2-[address] [facility] Basophil percentageOrdered B y: Woody Brunson on 06-30-2023 Basophil percentage 24.2 mmol/L 22- [facility] Basophils/100 WBC (Bld) 97 % 95-99 [facility] Ammonia (P) [Moles/Vol] 28.0 umol/L - [facility] Basophil percentage 28.0 umol/L - [facility] Basophil percentageOrdered B y: Rigoberto Ashley on 06-30-2023 Basophil percentage 75 mg/dL <200 [facility] Basophil percentage 98 mg/dL <199 [facility] Cholesterol [Mass/Vol] 75 mg/dL <200 [facility] Comment on above: <200 mg/dL Desirable 200-240 mg/dL Borderline >240 mg/dL High Risk Triglyceride [Mass/Vol] 98 mg/dL <199 [facility] Comment on above: The drugs N-Acetylcy steine and Metamizole may falsely depress this assay.Serum Triglycerides Reference Interval Normal <150 mg/dL Borderline high 150 - 199 mg/dL High 200 - 499 mg/dL Very High > or = 500 mg/dL CO2 (BldA) [Partial pressure ]Ordered By: Woody Brunson on 06-30-2023 CO2 (Bld) [Partial pressure] 34.5 mm[Hg] 35-[address] [facility] No Panel InformationOrdered By: Woody Brunson on 06-30-2023 Blood Gas Liter Flow 5.0 /min [facility] Blood Gas Sample Site R Radial [facility] Blood Gas Specimen Type ART [facility] Blood Gas Total CO2 25 mmol/L [facility] Oxygen Delivery Device Cannula [facility] ART [facility] R Radial [facility] Cannula [facility] 5.0 /min [facility] 25 mmol/L [facility] No Panel InformationOrdered By: Rigoberto Ashley on 06-30-2023 Thyroid Stimulating Hormone (TSH) 5.37 uIU/mL 0.358-3.[address] [facility] 5.37 uIU/mL 0.358-3.[address] [facility] Oxygen (BldA) [Partial press ure]Ordered By: Woody Brunson on 06-30-2023 Oxygen (Bld) [Partial pressure] 81 mmHG 75-[address] [facility] Serum or plasma cholesterol in HDL measurement (mass/volume)Ordered By: Rigoberto Ashley on 06-30-2023 Cholesterol in HDL [Mass/Vol] 30 mg/dL >[address] [facility] Comment on above: The drugs N-Acetylcy steine and Metamizole may falsely depress this assay. Reference Range HDL <40 mg/dL Low HDL Cholesterol HDL >or= 60 mg/dL High HDL Cholesterol Serum or plasma cholesterol in VLDL measurement (mass/volume)Ordered By: Rigoberto Ashley on 06-30-2023 Cholesterol in VLDL [Mass/Vol] 20 mg/dL 5-[address] [facility] Serum or plasma low density lipoprotein (LDL) cholesterol measurement (mass/volume)Ordered By: Rigoberto Ashley on 06-30-2023 Cholesterol in LDL [Mass/Vol] 25 mg/dL 0-[address] [facility] Whole blood hemoglobin A1c/t otal hemoglobin ratio (mass fraction)Ordered By: Rigoberto Ashley on 06-30-2023 HbA1c (Bld) [Mass fraction] 5.6 % 3.8-5.[address] [facility] Comment on above: Normal < 5.7 % Predi abetic 5.7 - 6.4 % Diabetic >or= 6.5 % Please note range changes. pH measurementOrdered By: Kyler Brunson on 06-30-2023 pH (Unsp spec) 7.45 [pH] 7.35-7.[address] [facility] Absolute lymphocyte countOrd ered By: Angélica Palomo on 06-29-2023 Lymphocytes Auto (Unsp spec) [#/Vol] 2.01 10*3/uL 0.83-4.[address] [facility] Basophil percentageOrdered B y: Angélica Palomo on 06-29-2023 Basophil percentage 0 SEEN /hpf 0-5 [facility] Basophils/100 WBC (Bld) 0.6 % 0-1 [facility] Chloride [Moles/Vol] 107 mmol/L 98-107 [facility] Eosinophils/100 WBC (Bld) 1.4 % 0-[address] [facility] Glucose [Mass/Vol] 102 mg/dL 74-106 [facility] Comment on above: Fasting Glucose resu lt from 100 to 125 mg/dL suggests IMPAIRED HOMEOSTASIS per A.D.A. criteria. Neutrophils (Bld) [#/Vol] 6.7 10*3/uL 2.0-7.[address] [facility] Neutrophils/100 WBC (Bld) 70.0 % 47-[address] [facility] Potassium [Moles/Vol] 4.7 mmol/L 3.5-5.1 [facility] Sodium [Moles/Vol] 141 mmol/L 136-145 [facility] WBC (Bld) [#/Vol] 9.5 10*3/uL 4.4-11.0 [facility] Basophil percentageOrdered B y: Rigoberto Ashley on 06-29-2023 Basophil percentage 3.9 mg/dL 2.5-4.9 [facility] Bilirubin Test strip Ql (U)O rdered By: Angélica Palomo on 06-29-2023 Bilirubin Ql (U) Negative Negative [facility] Blood erythrocytes count (nu mber/volume)Ordered By: Angélica Palomo on 06-29-2023 RBC (Bld) [#/Vol] 3.69 10*6/uL 4.6-6.2 [facility] Blood hemoglobin measurement (mass/volume)Ordered By: Angélica Palomo on 06-29-2023 Hemoglobin (Bld) [Mass/Vol] 11.6 g/dL 13.0-16.[address] [facility] Blood lymphocytes/100 leukoc ytesOrdered By: Angélica Palomo on 06-29-2023 Lymphocytes/100 WBC (Bld) 21.1 % 19-[address] [facility] Blood monocytes/100 leukocyt esOrdered By: Angélica Palomo on 06-29-2023 Monocytes/100 WBC (Bld) 6.4 % 0-10 [facility] Blood platelet mean volumeOr dered By: Angélica Palomo on 06-29-2023 Platelet mean volume (Bld) [Entitic vol] 11.3 fL 6.2-12.[address] [facility] Determination of erythrocyte mean corpuscular volume (MCV)Ordered By: Angélica Palomo on 06-29-2023 MCV (RBC) [Entitic vol] 99.5 fL 80-94 [facility] HCO3 (BldA) [Moles/Vol]Order ed By: Angélica Palomo on 06-29-2023 HCO3 (Bld) [Moles/Vol] 25 mmol/L 22-26 [facility] Hematocrit Auto (Bld) [Volum e fraction]Ordered By: Angélica Palomo on 06-29-2023 Hematocrit (Bld) [Volume fraction] 36.7 % 40-[address] [facility] INR in Blood by Coagulation assayOrdered By: Angélica Palomo on 06-29-2023 INR Coag (Bld) [Relative time] 1.5 {INR} [facility] Ketones Test strip Ql (U)Ord ered By: Angélica Palomo on 06-29-2023 Ketones Ql (U) Negative Negative [facility] Laboratory - Chemistry and C hemistry - challengeOrdered By: Angélica Palomo on 06-29-2023 CO2 [Moles/Vol] 26 mmol/L 23-[address] [facility] CO2 [Moles/Vol] 28.0 mmol/L 21.0-32.[address] [facility] Urea nitrogen/Creatinine [Mass ratio] 19.0 mg/mg 10-[address] [facility] Laboratory - Chemistry and C hemistry - challengeOrdered By: Rigoberto Ashley on 06-29-2023 Magnesium [Mass/Vol] 1.9 mg/dL 1.6-2.6 [facility] Laboratory - CoagulationOrde red By: Angélica Palomo on 06-29-2023 aPTT Coag (Bld) [Time] 40.4 s 24.1-36.2 [facility] PT Coag (PPP) [Time] 18.0 s 11.7-14.9 [facility] Laboratory - Hematology and Cell countsOrdered By: Angélica Palomo on 06-29-2023 Erythrocyte distribution width (RBC) [Entitic vol] 51.5 fL 35.1-43.[address] [facility] Erythrocyte distribution width (RBC) [Ratio] 14.2 % 11.6-14.[address] [facility] Immature granulocytes/100 WBC (Bld) 0.500 % 0.0-0.[address] [facility] Comment on above: IG% - Immature Granu locytes (promyelocytes, myelocytes and metamyelocytes) > 1% indicates that a LEFT SHIFT is Present. MCH (RBC) [Entitic mass] 31.4 pg 27.0-32.[address] [facility] Nucleated RBC/100 WBC (Bld) [Ratio] 0 % 0-[address] [facility] MCHC Auto (RBC) [Mass/Vol]Or dered By: Angélica Palomo on 06-29-2023 MCHC (RBC) [Mass/Vol] 31.6 g/dL 32-36 [facility] Mucus LM Ql (Urine sed)Order ed By: Angélica Palomo on 06-29-2023 Mucus Ql (Urine sed) 0 SEEN /hpf [facility] Nitrite Test strip Ql (U)Ord ered By: Angélica Palomo on 06-29-2023 Nitrite Ql (U) Negative Negative [facility] No Panel InformationOrdered By: Angélica Palomo on 06-29-2023 Bed Mix Venous Bld PCO2 at Pat Temp 34.8 mmHg 41-[address] [facility] Blood Gas Liter Flow 4.0 /min [facility] Blood Gas Specimen Type AYE [facility] Venous Blood Base Excess 1 mmol/L -1.0-3.[address] [facility] 34.8 mmHg 41-[address] [facility] 1 mmol/L -1.0-3.[address] [facility] 93 % 50-[address] [facility] 26 mmol/L 23-[address] [facility] Estimated Creatinine Clearance Calc 19.98 ml/min [facility] Estimated GFR (MDRD) Amer 32 mL/min >[address] [facility] Comment on above: GFR Calc Estimated GFR (MDRD) Non-Af Amer 27 mL/min >[address] [facility] Comment on above: Non- GFR Calc Troponin I High Sensitivity 66 pg/mL 3.0-78.[address] [facility] Comment on above: Please Note: New Megh[employer] t Units and Gender Specific Reference Ranges. For more information see Policy Stat Procedure [place] High Sensitivity Troponin (TNIH) and attachments. 18.0 SECONDS 11.7-14.[address] [facility] 40.4 Seconds 24.1-36.[address] [facility] 66 pg/mL 3.0-78.[address] [facility] No Panel InformationOrdered By: Rigoberto Ashley on 06-29-2023 1.9 mg/dL 1.6-2.[address] [facility] PO2 venousOrdered By: Angélica Palomo on 06-29-2023 Oxygen (BldV) [Partial pressure] 64 mm[Hg] 25-[address] [facility] Platelets bldOrdered By: Dee Palomo on 06-29-2023 Platelets (Bld) [#/Vol] 143 10*3/uL 150-[address] [facility] Protein Test strip Ql (U)Ord ered By: Angélica Palomo on 06-29-2023 Protein Ql (U) 30 mg/dl Negative [facility] Serum or plasma calcium aubree urement (mass/volume)Ordered By: Angélica Palomo on 06-29-2023 Calcium [Mass/Vol] 9.9 mg/dL 8.5-10.1 [facility] Serum or plasma creatinine m easurement (mass/volume)Ordered By: Angélica Palomo on 06-29-2023 Creatinine [Mass/Vol] 2.48 mg/dL 0.70-1.30 [facility] Comment on above: The validity of the calculated GFR & GFRAA in patients over 70 years has not been determined. Clinical correlation is essential. Serum or plasma urea nitroge n measurement (mass/volume)Ordered By: Angélica Palomo on 06-29-2023 Urea nitrogen [Mass/Vol] 47 mg/dL 7-[address] [facility] Squamous epithelial cells de tection in urine sediment by light microscopyOrdered By: Angélica Palomo on 06-29-2023 Epithelial cells.squamous LM Ql (Urine sed) 0 SEEN /hpf 0-[address] [facility] Thin prep Papanicolaou smear with manual screeningOrdered By: Angélica Palomo on 06-29-2023 Thin prep Papanicolaou smear with manual screening 6 5-[address] [facility] Urine blood detectionOrdered By: Angélica Palomo on 06-29-2023 RBC Ql (U) Negative Negative [facility] RBC Ql (U) 0 SEEN /hpf 0-[address] [facility] Urine clarityOrdered By: Dee Palomo on 06-29-2023 Clarity (U) Clear Clear [facility] Urine color determinationOrd ered By: Angélica Palomo on 06-29-2023 Color (U) Yellow Yellow [facility] Urine glucose detectionOrder ed By: Angélica Palomo on 06-29-2023 Glucose Ql (U) Normal mg/dl Normal [facility] Urine leukocyte esterase det ection by dipstickOrdered By: Angélica Palomo on 06-29-2023 Leukocyte esterase Test strip Ql (U) Negative Negative [facility] Urine pHOrdered By: Angélica sher on 06-29-2023 pH (U) 6.0 [pH] 5.0 - 8.[address] [facility] Urine sediment bacteria coun t by microscopy (number/high power field)Ordered By: Angélica Palomo on 06-29-2023 Bacteria LM.HPF (Urine sed) [#/Area] 0 /[HPF] None Seen [facility] Urine specific gravity measu rementOrdered By: Angélica Palomo on 06-29-2023 Specific gravity (U) [Rel density] 1.015 1.002-1.[address] [facility] Urobilinogen Auto test strip Ql (U)Ordered By: Angélica Palomo on 06-29-2023 Urobilinogen Ql (U) Normal mg/dl Normal [facility] Vital signsOrdered By: Senia Palomo on 06-29-2023 Oxygen saturation in Blood 93 % 50-[address] [facility] pH measurementOrdered By: Phoenix Palomo on 06-29-2023 pH (Unsp spec) 7.46 [pH] 7.32-7.[address] [facility] Absolute lymphocyte countOrd ered By: Pepe Au on 06-13-2023 Lymphocytes Auto (Unsp spec) [#/Vol] 1.92 10*3/uL 0.83-4.[address] [facility] Basophil percentageOrdered B y: Pepe Au on 06-13-2023 Basophil percentage 3.0 mg/dL 2.5-4.9 [facility] Basophil percentage 172 mg/dL 74-106 [facility] Basophil percentage 140 mmol/L 136-145 [facility] Basophil percentage 4.6 mmol/L 3.5-5.1 [facility] Basophil percentage 110 mmol/L 98-107 [facility] Basophils (Bld) [#/Vol] 8.7 10*3/uL 4.4-11.[address] [facility] Basophils (Bld) [#/Vol] 6.0 10*3/uL 2.0-7.[address] [facility] Basophils/100 WBC (Bld) 0.3 % 0-1 [facility] Basophils/100 WBC (Bld) 68.6 % 47-70 [facility] Basophils/100 WBC (Bld) 1.8 % 0-5 [facility] Chloride [Moles/Vol] 110 mmol/L 98-107 [facility] Eosinophils/100 WBC (Bld) 1.8 % 0-[address] [facility] Glucose [Mass/Vol] 172 mg/dL 74-106 [facility] Comment on above: Fasting Glucose resu lt greater than or equal to 126 mg/dL suggests DIABETES MELLITUS per A.D.A. criteria. Neutrophils (Bld) [#/Vol] 6.0 10*3/uL 2.0-7.[address] [facility] Neutrophils/100 WBC (Bld) 68.6 % 47-[address] [facility] Potassium [Moles/Vol] 4.6 mmol/L 3.5-5.1 [facility] Sodium [Moles/Vol] 140 mmol/L 136-145 [facility] WBC (Bld) [#/Vol] 8.7 10*3/uL 4.4-11.0 [facility] Blood erythrocytes count (nu mber/volume)Ordered By: Pepe Au on 06-13-2023 RBC (Bld) [#/Vol] 3.60 10*6/uL 4.6-6.2 [facility] Blood hemoglobin measurement (mass/volume)Ordered By: Pepe Au on 06-13-2023 Hemoglobin (Bld) [Mass/Vol] 11.4 g/dL 13.0-16.[address] [facility] Blood lymphocytes/100 leukoc ytesOrdered By: Pepe Au on 06-13-2023 Lymphocytes/100 WBC (Bld) 22.0 % 19-[address] [facility] Blood monocytes/100 leukocyt esOrdered By: Pepe Au on 06-13-2023 Monocytes/100 WBC (Bld) 7.0 % 0-10 [facility] Blood platelet mean volumeOr dered By: Pepe Au on 06-13-2023 Platelet mean volume (Bld) [Entitic vol] 10.8 fL 6.2-12.[address] [facility] Determination of erythrocyte mean corpuscular volume (MCV)Ordered By: Pepe Au on 06-13-2023 MCV (RBC) [Entitic vol] 101.4 fL 80-94 [facility] Hematocrit Auto (Bld) [Volum e fraction]Ordered By: Pepe Au on 06-13-2023 Hematocrit (Bld) [Volume fraction] 36.5 % 40-[address] [facility] Iron measurement (mass/mass) Ordered By: Pepe Au on 06-13-2023 Iron (Unsp spec) [Mass/Mass] 60 ug/dL 65-[address] [facility] Laboratory - Chemistry and C hemistry - challengeOrdered By: Pepe Au on 06-13-2023 CO2 [Moles/Vol] 25.0 mmol/L 21.0-32.[address] [facility] Urea nitrogen/Creatinine [Mass ratio] 19.7 mg/mg 10-[address] [facility] Laboratory - Hematology and Cell countsOrdered By: Pepe Au on 06-13-2023 Erythrocyte distribution width (RBC) [Entitic vol] 52.5 fL 35.1-43.[address] [facility] Erythrocyte distribution width (RBC) [Ratio] 14.1 % 11.6-14.[address] [facility] Immature granulocytes/100 WBC (Bld) 0.300 % 0.0-0.[address] [facility] Comment on above: IG% - Immature Granu locytes (promyelocytes, myelocytes and metamyelocytes) > 1% indicates that a LEFT SHIFT is Present. MCH (RBC) [Entitic mass] 31.7 pg 27.0-32.[address] [facility] Nucleated RBC/100 WBC (Bld) [Ratio] 0 % 0-[address] [facility] MCHC Auto (RBC) [Mass/Vol]Or dered By: Pepe Au on 06-13-2023 MCHC (RBC) [Mass/Vol] 31.2 g/dL 32-36 [facility] No Panel InformationOrdered By: Pepe Au on 06-13-2023 Estimated GFR (MDRD) Amer 28 mL/min >[address] [facility] Comment on above: GFR Calc Estimated GFR (MDRD) Non-Af Amer 23 mL/min >[address] [facility] Comment on above: Non- GFR Calc Total Iron Binding Capacity 258 ug/dL 250-[address] [facility] 31.7 pg 27.0-32.[address] [facility] 14.1 % 11.6-14.[address] [facility] 52.5 fl 35.1-43.[address] [facility] 0.300 % 0.0-0.[address] [facility] 0 % 0-[address] [facility] 23 mL/min >[address] [facility] 28 mL/min >[address] [facility] 19.7 RATIO 10-[address] [facility] 25.0 mmol/L 21.0-32.[address] [facility] 258 ug/dL 250-[address] [facility] Platelets bldOrdered By: Zandra Au on 06-13-2023 Platelets (Bld) [#/Vol] 120 10*3/uL 150-[address] [facility] Serum or plasma albumin aubree urement (mass/volume)Ordered By: Pepe Au on 06-13-2023 Albumin [Mass/Vol] 3.3 g/dL 3.2-5.0 [facility] Serum or plasma calcium aubree urement (mass/volume)Ordered By: Pepe Au on 06-13-2023 Calcium [Mass/Vol] 8.5 mg/dL 8.5-10.1 [facility] Serum or plasma creatinine m easurement (mass/volume)Ordered By: Pepe Au on 06-13-2023 Creatinine [Mass/Vol] 2.84 mg/dL 0.70-1.30 [facility] Comment on above: The validity of the calculated GFR & GFRAA in patients over 70 years has not been determined. Clinical correlation is essential. Serum or plasma ferritin laurie surement (mass/volume)Ordered By: Pepe Au on 06-13-2023 Ferritin [Mass/Vol] 168 ng/mL 26-388 [facility] Serum or plasma iron saturat ion measurement (mass fraction)Ordered By: Pepe Au on 06-13-2023 Iron saturation [Mass fraction] 23.3 % 15.0-55.[address] [facility] Serum or plasma urea nitroge n measurement (mass/volume)Ordered By: Pepe Au on 06-13-2023 Urea nitrogen [Mass/Vol] 56 mg/dL 7-[address] [facility] Absolute lymphocyte countOrd ered By: Toñito Espino on 05-26-2023 Lymphocytes Auto (Unsp spec) [#/Vol] 1.58 10*3/uL 0.83-4.[address] [facility] Basophil percentageOrdered B y: Toñito Espino on 05-26-2023 Basophil percentage 3.7 mg/dL 2.5-4.9 [facility] Basophil percentage 196 mg/dL 74-106 [facility] Basophil percentage 7.8 g/dL 6.4-8.2 [facility] Basophil percentage 0.80 mg/dL 0.20-1.00 [facility] Basophil percentage 140 mmol/L 136-145 [facility] Basophil percentage 4.7 mmol/L 3.5-5.1 [facility] Basophil percentage 107 mmol/L 98-107 [facility] Basophils (Bld) [#/Vol] 8.7 10*3/uL 4.4-11.[address] [facility] Basophils (Bld) [#/Vol] 6.5 10*3/uL 2.0-7.[address] [facility] Basophils/100 WBC (Bld) 0.5 % 0-1 [facility] Basophils/100 WBC (Bld) 74.3 % 47-70 [facility] Basophils/100 WBC (Bld) 1.3 % 0-5 [facility] Bilirubin [Mass/Vol] 0.80 mg/dL 0.20-1.00 [facility] Comment on above: For patients on eltr ombopag therapy, use of Dimension [place] TBIL is not recommended. Chloride [Moles/Vol] 107 mmol/L 98-107 [facility] Eosinophils/100 WBC (Bld) 1.3 % 0-[address] [facility] Glucose [Mass/Vol] 196 mg/dL 74-106 [facility] Comment on above: Fasting Glucose resu lt greater than or equal to 126 mg/dL suggests DIABETES MELLITUS per A.D.A. criteria. Neutrophils (Bld) [#/Vol] 6.5 10*3/uL 2.0-7.[address] [facility] Neutrophils/100 WBC (Bld) 74.3 % 47-[address] [facility] Potassium [Moles/Vol] 4.7 mmol/L 3.5-5.1 [facility] Protein [Mass/Vol] 7.8 g/dL 6.4-8.2 [facility] Sodium [Moles/Vol] 140 mmol/L 136-145 [facility] WBC (Bld) [#/Vol] 8.7 10*3/uL 4.4-11.0 [facility] Blood erythrocytes count (nu mber/volume)Ordered By: Toñito Espino on 05-26-2023 RBC (Bld) [#/Vol] 3.52 10*6/uL 4.6-6.2 [facility] Blood hemoglobin measurement (mass/volume)Ordered By: Toñito Espino on 05-26-2023 Hemoglobin (Bld) [Mass/Vol] 11.1 g/dL 13.0-16.[address] [facility] Blood lymphocytes/100 leukoc ytesOrdered By: Toñito Espino on 05-26-2023 Lymphocytes/100 WBC (Bld) 18.1 % 19-[address] [facility] Blood monocytes/100 leukocyt esOrdered By: Toñito Espino on 05-26-2023 Monocytes/100 WBC (Bld) 5.3 % 0-10 [facility] Blood platelet mean volumeOr dered By: Toñito Espino on 05-26-2023 Platelet mean volume (Bld) [Entitic vol] 11.6 fL 6.2-12.[address] [facility] Determination of erythrocyte mean corpuscular volume (MCV)Ordered By: Toñito Espino on 05-26-2023 MCV (RBC) [Entitic vol] 101.1 fL 80-94 [facility] Hematocrit Auto (Bld) [Volum e fraction]Ordered By: Toñito Espino on 05-26-2023 Hematocrit (Bld) [Volume fraction] 35.6 % 40-[address] [facility] Iron measurement (mass/mass) Ordered By: Toñito Espino on 05-26-2023 Iron (Unsp spec) [Mass/Mass] 75 ug/dL 65-[address] [facility] Laboratory - Chemistry and C hemistry - challengeOrdered By: Toñito Espino on 05-26-2023 ALP [Catalytic activity/Vol] 134 U/L 45-[address] [facility] ALT [Catalytic activity/Vol] 14 U/L 16-[address] [facility] CO2 [Moles/Vol] 27.0 mmol/L 21.0-32.[address] [facility] Globulin (S) [Mass/Vol] 4.6 g/dL 2.2-4.2 [facility] Urea nitrogen/Creatinine [Mass ratio] 19.9 mg/mg 10- [facility] Laboratory - Hematology and Cell countsOrdered By: Toñito Espino on 05-26-2023 Erythrocyte distribution width (RBC) [Entitic vol] 51.8 fL 35.1-43.[address] [facility] Erythrocyte distribution width (RBC) [Ratio] 14.2 % 11.6-14.[address] [facility] Immature granulocytes/100 WBC (Bld) 0.500 % 0.0-0.[address] [facility] Comment on above: IG% - Immature Granu locytes (promyelocytes, myelocytes and metamyelocytes) > 1% indicates that a LEFT SHIFT is Present. MCH (RBC) [Entitic mass] 31.5 pg 27.0-32.[address] [facility] Nucleated RBC/100 WBC (Bld) [Ratio] 0 % 0-[address] [facility] MCHC Auto (RBC) [Mass/Vol]Or dered By: Toñito Espino on 05-26-2023 MCHC (RBC) [Mass/Vol] 31.2 g/dL 32-36 [facility] No Panel InformationOrdered By: Toñito Espino on 05-26-2023 Estimated GFR (MDRD) Amer 26 mL/min >[address] [facility] Comment on above: GFR Calc Estimated GFR (MDRD) Non-Af Amer 21 mL/min >[address] [facility] Comment on above: Non- GFR Calc Parathyroid Hormone (Intact) 20.3 pg/mL 18.4-80.[address] [facility] Thyroid Stimulating Hormone (TSH) 4.65 uIU/mL 0.358-3.[address] [facility] Total Iron Binding Capacity 278 ug/dL 250-[address] [facility] 31.5 pg 27.0-32.[address] [facility] 14.2 % 11.6-14.[address] [facility] 51.8 fl 35.1-43.[address] [facility] 0.500 % 0.0-0.[address] [facility] 0 % 0-[address] [facility] 21 mL/min >[address] [facility] 26 mL/min >[address] [facility] 19.9 RATIO 10- [facility] 4.6 g/dL 2.2-4.[address] [facility] 134 U/L 45-[address] [facility] 14 U/L 16-[address] [facility] 27.0 mmol/L 21.0-32.[address] [facility] 4.65 uIU/mL 0.358-3.[address] [facility] 278 ug/dL 250-[address] [facility] 20.3 pg/mL 18.4-80.[address] [facility] Platelets bldOrdered By: Sujit Espino on 05-26-2023 Platelets (Bld) [#/Vol] 130 10*3/uL 150-[address] [facility] Serum or plasma albumin aubree urement (mass/volume)Ordered By: Toñito Espino on 05-26-2023 Albumin [Mass/Vol] 3.2 g/dL 3.2-5.0 [facility] Serum or plasma albumin/glob ulin mass ratioOrdered By: Toñito Espino on 05-26-2023 Albumin/Globulin [Mass ratio] 0.7 {ratio} 0.9-2.[address] [facility] Serum or plasma calcium aubree urement (mass/volume)Ordered By: Toñito Espino on 05-26-2023 Calcium [Mass/Vol] 9.3 mg/dL 8.5-10.1 [facility] Serum or plasma creatinine m easurement (mass/volume)Ordered By: Toñito Espino on 05-26-2023 Creatinine [Mass/Vol] 3.02 mg/dL 0.70-1.30 [facility] Comment on above: The validity of the calculated GFR & GFRAA in patients over 70 years has not been determined. Clinical correlation is essential. Serum or plasma ferritin laurie surement (mass/volume)Ordered By: Toñito Espino on 05-26-2023 Ferritin [Mass/Vol] 151 ng/mL 26-388 [facility] Serum or plasma iron saturat ion measurement (mass fraction)Ordered By: Toñito Espino on 05-26-2023 Iron saturation [Mass fraction] 27.0 % 15.0-55.[address] [facility] Serum or plasma urea nitroge n measurement (mass/volume)Ordered By: Toñito Espino on 05-26-2023 Urea nitrogen [Mass/Vol] 60 mg/dL 7-[address] [facility] Thin prep Papanicolaou smear with manual screeningOrdered By: Toñito Espino on 05-26-2023 Thin prep Papanicolaou smear with manual screening 15 U/L 15-[address] [facility] Thin prep Papanicolaou smear with manual screening 6 5-[address] [facility] Urine creatinine measurement (mass/volume)Ordered By: Toñito Espino on 05-26-2023 Creatinine (U) [Mass/Vol] 84.50 mg/dL NO RANGE EST. [facility] Urine protein measurement (m ass/volume)Ordered By: Toñito Espino on 05-26-2023 Protein (U) [Mass/Vol] 58.6 mg/dL 0.0-11.8 [facility] Urine protein/creatinine mas s ratioOrdered By: Toñito Espino on 05-26-2023 Protein/Creatinine (U) [Mass ratio] 693 mg/g CRE 0-[address] [facility] Whole blood hemoglobin A1c/t otal hemoglobin ratio (mass fraction)Ordered By: Toñito Espino on 05-26-2023 HbA1c (Bld) [Mass fraction] 5.5 % 3.8-5.[address] [facility] Comment on above: Normal < 5.7 % Predi abetic 5.7 - 6.4 % Diabetic >or= 6.5 % Please note range changes. Absolute lymphocyte countOrd ered By: Dr. Au on 05-16-2023 Lymphocytes Auto (Unsp spec) [#/Vol] 2.23 10*3/uL 0.83-4.[address] [facility] Basophil percentageOrdered B y: Dr. Au on 05-16-2023 Basophil percentage 3.8 mg/dL 2.5-4.9 [facility] Basophils/100 WBC (Bld) 0.5 % 0-1 [facility] Chloride [Moles/Vol] 110 mmol/L 98-107 [facility] Eosinophils/100 WBC (Bld) 2.4 % 0-[address] [facility] Glucose [Mass/Vol] 163 mg/dL 74-106 [facility] Comment on above: Fasting Glucose resu lt greater than or equal to 126 mg/dL suggests DIABETES MELLITUS per A.D.A. criteria. Neutrophils (Bld) [#/Vol] 6.0 10*3/uL 2.0-7.[address] [facility] Neutrophils/100 WBC (Bld) 66.1 % 47-[address] [facility] Potassium [Moles/Vol] 4.6 mmol/L 3.5-5.1 [facility] Sodium [Moles/Vol] 141 mmol/L 136-145 [facility] WBC (Bld) [#/Vol] 9.1 10*3/uL 4.4-11.0 [facility] Basophil percentageOrdered B y: Pepe Au on 05-16-2023 Basophil percentage 163 mg/dL 74-106 [facility] Basophil percentage 141 mmol/L 136-145 [facility] Basophil percentage 4.6 mmol/L 3.5-5.1 [facility] Basophil percentage 110 mmol/L 98-107 [facility] Basophils (Bld) [#/Vol] 9.1 10*3/uL 4.4-11.[address] [facility] Basophils (Bld) [#/Vol] 6.0 10*3/uL 2.0-7.[address] [facility] Basophils/100 WBC (Bld) 66.1 % 47-70 [facility] Basophils/100 WBC (Bld) 2.4 % 0-5 [facility] Blood erythrocytes count (nu mber/volume)Ordered By: Dr. Au on 05-16-2023 RBC (Bld) [#/Vol] 3.57 10*6/uL 4.6-6.2 [facility] Blood hemoglobin measurement (mass/volume)Ordered By: Dr. Au on 05-16-2023 Hemoglobin (Bld) [Mass/Vol] 11.2 g/dL 13.0-16.[address] [facility] Blood lymphocytes/100 leukoc ytesOrdered By: Dr. Au on 05-16-2023 Lymphocytes/100 WBC (Bld) 24.5 % 19-[address] [facility] Blood monocytes/100 leukocyt esOrdered By: Dr. Au on 05-16-2023 Monocytes/100 WBC (Bld) 6.1 % 0-10 [facility] Blood platelet mean volumeOr dered By: Dr. Au on 05-16-2023 Platelet mean volume (Bld) [Entitic vol] 10.3 fL 6.2-12.[address] [facility] Determination of erythrocyte mean corpuscular volume (MCV)Ordered By: Dr. Au on 05-16-2023 MCV (RBC) [Entitic vol] 100.0 fL 80-94 [facility] Hematocrit Auto (Bld) [Volum e fraction]Ordered By: Dr. Au on 05-16-2023 Hematocrit (Bld) [Volume fraction] 35.7 % 40-[address] [facility] Iron measurement (mass/mass) Ordered By: Dr. Au on 05-16-2023 Iron (Unsp spec) [Mass/Mass] 70 ug/dL 65-[address] [facility] Laboratory - Chemistry and C hemistry - challengeOrdered By: Dr. Au on 05-16-2023 CO2 [Moles/Vol] 25.0 mmol/L 21.0-32.[address] [facility] Urea nitrogen/Creatinine [Mass ratio] 21.5 mg/mg 10-[address] [facility] Laboratory - Hematology and Cell countsOrdered By: Dr. Au on 05-16-2023 Erythrocyte distribution width (RBC) [Entitic vol] 52.7 fL 35.1-43.[address] [facility] Erythrocyte distribution width (RBC) [Ratio] 14.5 % 11.6-14.[address] [facility] Immature granulocytes/100 WBC (Bld) 0.400 % 0.0-0.[address] [facility] Comment on above: IG% - Immature Granu locytes (promyelocytes, myelocytes and metamyelocytes) > 1% indicates that a LEFT SHIFT is Present. MCH (RBC) [Entitic mass] 31.4 pg 27.0-32.[address] [facility] Nucleated RBC/100 WBC (Bld) [Ratio] 0 % 0-[address] [facility] MCHC Auto (RBC) [Mass/Vol]Or dered By: Dr. Au on 05-16-2023 MCHC (RBC) [Mass/Vol] 31.4 g/dL 32-36 [facility] No Panel InformationOrdered By: Dr. Au on 05-16-2023 Estimated GFR (MDRD) Amer 26 mL/min >[address] [facility] Comment on above: GFR Calc Estimated GFR (MDRD) Non-Af Amer 22 mL/min >[address] [facility] Comment on above: Non- GFR Calc Parathyroid Hormone (Intact) 55.0 pg/mL 18.4-80.[address] [facility] Total Iron Binding Capacity 231 ug/dL 250-[address] [facility] No Panel InformationOrdered By: Pepe Au on 05-16-2023 31.4 pg 27.0-32.[address] [facility] 14.5 % 11.6-14.[address] [facility] 52.7 fl 35.1-43.[address] [facility] 0.400 % 0.0-0.[address] [facility] 0 % 0-[address] [facility] 22 mL/min >[address] [facility] 26 mL/min >[address] [facility] 21.5 RATIO 10-[address] [facility] 25.0 mmol/L 21.0-32.[address] [facility] 231 ug/dL 250-[address] [facility] 55.0 pg/mL 18.4-80.[address] [facility] Platelets bldOrdered By: Dr. Au on 05-16-2023 Platelets (Bld) [#/Vol] 132 10*3/uL 150-[address] [facility] Serum or plasma albumin aubree urement (mass/volume)Ordered By: Dr. Au on 05-16-2023 Albumin [Mass/Vol] 3.2 g/dL 3.2-5.0 [facility] Serum or plasma calcium aubree urement (mass/volume)Ordered By: Dr. Au on 05-16-2023 Calcium [Mass/Vol] 9.1 mg/dL 8.5-10.1 [facility] Serum or plasma creatinine m easurement (mass/volume)Ordered By: Dr. Au on 05-16-2023 Creatinine [Mass/Vol] 2.97 mg/dL 0.70-1.30 [facility] Comment on above: The validity of the calculated GFR & GFRAA in patients over 70 years has not been determined. Clinical correlation is essential. Serum or plasma ferritin laurie surement (mass/volume)Ordered By: Dr. Au on 05-16-2023 Ferritin [Mass/Vol] 154 ng/mL 26-388 [facility] Serum or plasma iron saturat ion measurement (mass fraction)Ordered By: Dr. Au on 05-16-2023 Iron saturation [Mass fraction] 30.3 % 15.0-55.[address] [facility] Serum or plasma urea nitroge n measurement (mass/volume)Ordered By: Dr. Au on 05-16-2023 Urea nitrogen [Mass/Vol] 64 mg/dL 7-[address] [facility] No Panel Informationon 05-12 Culture Urine <10,000 cfu/ml. No Significant growth. Sensitivity not indicated. [facility] Work Phone: Absolute lymphocyte countOrd ered By: Dr. Au on 04-18-2023 Lymphocytes Auto (Unsp spec) [#/Vol] 1.93 10*3/uL 0.83-4.[address] [facility] Basophil percentageOrdered B y: Dr. Au on 04-18-2023 Basophil percentage 4.0 mg/dL 2.5-4.9 [facility] Basophils/100 WBC (Bld) 0.2 % 0-1 [facility] Chloride [Moles/Vol] 107 mmol/L 98-107 [facility] Eosinophils/100 WBC (Bld) 1.9 % 0-[address] [facility] Glucose [Mass/Vol] 144 mg/dL 74-106 [facility] Comment on above: Fasting Glucose resu lt greater than or equal to 126 mg/dL suggests DIABETES MELLITUS per A.D.A. criteria. Neutrophils (Bld) [#/Vol] 5.7 10*3/uL 2.0-7.[address] [facility] Neutrophils/100 WBC (Bld) 68.4 % 47-[address] [facility] Potassium [Moles/Vol] 4.3 mmol/L 3.5-5.1 [facility] Sodium [Moles/Vol] 141 mmol/L 136-145 [facility] WBC (Bld) [#/Vol] 8.4 10*3/uL 4.4-11.0 [facility] Basophil percentageOrdered B y: Pepe Au on 04-18-2023 Basophil percentage 144 mg/dL 74-106 [facility] Basophil percentage 141 mmol/L 136-145 [facility] Basophil percentage 4.3 mmol/L 3.5-5.1 [facility] Basophil percentage 107 mmol/L 98-107 [facility] Basophils (Bld) [#/Vol] 8.4 10*3/uL 4.4-11.[address] [facility] Basophils (Bld) [#/Vol] 5.7 10*3/uL 2.0-7.[address] [facility] Basophils/100 WBC (Bld) 68.4 % 47-70 [facility] Basophils/100 WBC (Bld) 1.9 % 0-5 [facility] Blood erythrocytes count (nu mber/volume)Ordered By: Dr. Au on 04-18-2023 RBC (Bld) [#/Vol] 3.61 10*6/uL 4.6-6.2 [facility] Blood hemoglobin measurement (mass/volume)Ordered By: Dr. Au on 04-18-2023 Hemoglobin (Bld) [Mass/Vol] 11.3 g/dL 13.0-16.[address] [facility] Blood lymphocytes/100 leukoc ytesOrdered By: Dr. Au on 04-18-2023 Lymphocytes/100 WBC (Bld) 23.0 % 19-[address] [facility] Blood monocytes/100 leukocyt esOrdered By: Dr. Au on 04-18-2023 Monocytes/100 WBC (Bld) 6.1 % 0-10 [facility] Blood platelet mean volumeOr dered By: Dr. Au on 04-18-2023 Platelet mean volume (Bld) [Entitic vol] 10.9 fL 6.2-12.[address] [facility] Determination of erythrocyte mean corpuscular volume (MCV)Ordered By: Dr. Au on 04-18-2023 MCV (RBC) [Entitic vol] 99.2 fL 80-94 [facility] Hematocrit Auto (Bld) [Volum e fraction]Ordered By: Dr. Au on 04-18-2023 Hematocrit (Bld) [Volume fraction] 35.8 % 40-[address] [facility] Iron measurement (mass/mass) Ordered By: Dr. Au on 04-18-2023 Iron (Unsp spec) [Mass/Mass] 59 ug/dL 65-[address] [facility] Laboratory - Chemistry and C hemistry - challengeOrdered By: Dr. Au on 04-18-2023 CO2 [Moles/Vol] 27.0 mmol/L 21.0-32.[address] [facility] Urea nitrogen/Creatinine [Mass ratio] 23.6 mg/mg 10- [facility] Laboratory - Hematology and Cell countsOrdered By: Dr. Au on 04-18-2023 Erythrocyte distribution width (RBC) [Entitic vol] 50.5 fL 35.1-43.[address] [facility] Erythrocyte distribution width (RBC) [Ratio] 14.0 % 11.6-14.[address] [facility] Immature granulocytes/100 WBC (Bld) 0.400 % 0.0-0.[address] [facility] Comment on above: IG% - Immature Granu locytes (promyelocytes, myelocytes and metamyelocytes) > 1% indicates that a LEFT SHIFT is Present. MCH (RBC) [Entitic mass] 31.3 pg 27.0-32.[address] [facility] Nucleated RBC/100 WBC (Bld) [Ratio] 0 % 0-[address] [facility] MCHC Auto (RBC) [Mass/Vol]Or dered By: Dr. Au on 04-18-2023 MCHC (RBC) [Mass/Vol] 31.6 g/dL 32-36 [facility] No Panel InformationOrdered By: Dr. Au on 04-18-2023 Estimated GFR (MDRD) Amer 25 mL/min >[address] [facility] Comment on above: GFR Calc Estimated GFR (MDRD) Non-Af Amer 21 mL/min >[address] [facility] Comment on above: Non- GFR Calc Total Iron Binding Capacity 244 ug/dL 250-[address] [facility] No Panel InformationOrdered By: Pepe Au on 04-18-2023 31.3 pg 27.0-32.[address] [facility] 14.0 % 11.6-14.[address] [facility] 50.5 fl 35.1-43.[address] [facility] 0.400 % 0.0-0.[address] [facility] 0 % 0-[address] [facility] 21 mL/min >[address] [facility] 25 mL/min >[address] [facility] 23.6 RATIO 10- [facility] 27.0 mmol/L 21.0-32.[address] [facility] 244 ug/dL 250-[address] [facility] Platelets bldOrdered By: Dr. Au on 04-18-2023 Platelets (Bld) [#/Vol] 136 10*3/uL 150-[address] [facility] Serum or plasma albumin aubree urement (mass/volume)Ordered By: Dr. Au on 04-18-2023 Albumin [Mass/Vol] 3.2 g/dL 3.2-5.0 [facility] Serum or plasma calcium aubree urement (mass/volume)Ordered By: Dr. Au on 04-18-2023 Calcium [Mass/Vol] 8.9 mg/dL 8.5-10.1 [facility] Serum or plasma creatinine m easurement (mass/volume)Ordered By: Dr. Au on 04-18-2023 Creatinine [Mass/Vol] 3.09 mg/dL 0.70-1.30 [facility] Comment on above: The validity of the calculated GFR & GFRAA in patients over 70 years has not been determined. Clinical correlation is essential. Serum or plasma ferritin laurie surement (mass/volume)Ordered By: Dr. Au on 04-18-2023 Ferritin [Mass/Vol] 184 ng/mL 26-388 [facility] Serum or plasma iron saturat ion measurement (mass fraction)Ordered By: Dr. Au on 04-18-2023 Iron saturation [Mass fraction] 24.2 % 15.0-55.[address] [facility] Serum or plasma urea nitroge n measurement (mass/volume)Ordered By: Dr. Au on 04-18-2023 Urea nitrogen [Mass/Vol] 73 mg/dL 7-[address] [facility] Absolute lymphocyte countOrd ered By: Dr. Au on 03-21-2023 Lymphocytes Auto (Unsp spec) [#/Vol] 2.09 10*3/uL 0.83-4.[address] [facility] Basophil percentageOrdered B y: Dr. Au on 03-21-2023 Basophil percentage 3.2 mg/dL 2.5-4.9 [facility] Basophils/100 WBC (Bld) 0.6 % 0-1 [facility] Chloride [Moles/Vol] 107 mmol/L 98-107 [facility] Eosinophils/100 WBC (Bld) 3.1 % 0-[address] [facility] Glucose [Mass/Vol] 151 mg/dL 74-106 [facility] Comment on above: Fasting Glucose resu lt greater than or equal to 126 mg/dL suggests DIABETES MELLITUS per A.D.A. criteria. Neutrophils (Bld) [#/Vol] 6.0 10*3/uL 2.0-7.[address] [facility] Neutrophils/100 WBC (Bld) 66.3 % 47-[address] [facility] Potassium [Moles/Vol] 4.4 mmol/L 3.5-5.1 [facility] Sodium [Moles/Vol] 137 mmol/L 136-145 [facility] WBC (Bld) [#/Vol] 9.1 10*3/uL 4.4-11.0 [facility] Basophil percentageOrdered B y: Pepe Au on 03-21-2023 Basophil percentage 151 mg/dL 74-106 [facility] Basophil percentage 137 mmol/L 136-145 [facility] Basophil percentage 4.4 mmol/L 3.5-5.1 [facility] Basophil percentage 107 mmol/L 98-107 [facility] Basophils (Bld) [#/Vol] 9.1 10*3/uL 4.4-11.[address] [facility] Basophils (Bld) [#/Vol] 6.0 10*3/uL 2.0-7.[address] [facility] Basophils/100 WBC (Bld) 66.3 % 47-70 [facility] Basophils/100 WBC (Bld) 3.1 % 0-5 [facility] Blood erythrocytes count (nu mber/volume)Ordered By: Dr. Au on 03-21-2023 RBC (Bld) [#/Vol] 3.57 10*6/uL 4.6-6.2 [facility] Blood hemoglobin measurement (mass/volume)Ordered By: Dr. Au on 03-21-2023 Hemoglobin (Bld) [Mass/Vol] 11.3 g/dL 13.0-16.[address] [facility] Blood lymphocytes/100 leukoc ytesOrdered By: Dr. Au on 03-21-2023 Lymphocytes/100 WBC (Bld) 23.0 % 19-[address] [facility] Blood monocytes/100 leukocyt esOrdered By: Dr. Au on 03-21-2023 Monocytes/100 WBC (Bld) 6.7 % 0-10 [facility] Blood platelet mean volumeOr dered By: Dr. Au on 03-21-2023 Platelet mean volume (Bld) [Entitic vol] 10.1 fL 6.2-12.[address] [facility] Determination of erythrocyte mean corpuscular volume (MCV)Ordered By: Dr. Au on 03-21-2023 MCV (RBC) [Entitic vol] 100.0 fL 80-94 [facility] Hematocrit Auto (Bld) [Volum e fraction]Ordered By: Dr. Au on 03-21-2023 Hematocrit (Bld) [Volume fraction] 35.7 % 40-[address] [facility] Iron measurement (mass/mass) Ordered By: Dr. Au on 03-21-2023 Iron (Unsp spec) [Mass/Mass] 88 ug/dL 65-[address] [facility] Laboratory - Chemistry and C hemistry - challengeOrdered By: Dr. Au on 03-21-2023 CO2 [Moles/Vol] 27.0 mmol/L 21.0-32.[address] [facility] Urea nitrogen/Creatinine [Mass ratio] 23.1 mg/mg 10-[address] [facility] Laboratory - Hematology and Cell countsOrdered By: Dr. Au on 03-21-2023 Erythrocyte distribution width (RBC) [Entitic vol] 52.0 fL 35.1-43.[address] [facility] Erythrocyte distribution width (RBC) [Ratio] 14.2 % 11.6-14.[address] [facility] Immature granulocytes/100 WBC (Bld) 0.300 % 0.0-0.[address] [facility] Comment on above: IG% - Immature Granu locytes (promyelocytes, myelocytes and metamyelocytes) > 1% indicates that a LEFT SHIFT is Present. MCH (RBC) [Entitic mass] 31.7 pg 27.0-32.[address] [facility] Nucleated RBC/100 WBC (Bld) [Ratio] 0 % 0-[address] [facility] MCHC Auto (RBC) [Mass/Vol]Or dered By: Dr. Au on 03-21-2023 MCHC (RBC) [Mass/Vol] 31.7 g/dL 32-36 [facility] No Panel InformationOrdered By: Dr. Au on 03-21-2023 Estimated GFR (MDRD) Amer 28 mL/min >[address] [facility] Comment on above: GFR Calc Estimated GFR (MDRD) Non-Af Amer 23 mL/min >[address] [facility] Comment on above: Non- GFR Calc Parathyroid Hormone (Intact) 35.6 pg/mL 18.4-80.[address] [facility] Total Iron Binding Capacity 224 ug/dL 250-[address] [facility] No Panel InformationOrdered By: Pepe Au on 03-21-2023 31.7 pg 27.0-32.[address] [facility] 14.2 % 11.6-14.[address] [facility] 52.0 fl 35.1-43.[address] [facility] 0.300 % 0.0-0.[address] [facility] 0 % 0-[address] [facility] 23 mL/min >[address] [facility] 28 mL/min >[address] [facility] 23.1 RATIO 10-[address] [facility] 27.0 mmol/L 21.0-32.[address] [facility] 224 ug/dL 250-[address] [facility] 35.6 pg/mL 18.4-80.[address] [facility] Platelets bldOrdered By: Dr. Au on 03-21-2023 Platelets (Bld) [#/Vol] 130 10*3/uL 150-[address] [facility] Serum or plasma albumin aubree urement (mass/volume)Ordered By: Dr. Au on 03-21-2023 Albumin [Mass/Vol] 3.3 g/dL 3.2-5.0 [facility] Serum or plasma calcium aubree urement (mass/volume)Ordered By: Dr. Au on 03-21-2023 Calcium [Mass/Vol] 9.6 mg/dL 8.5-10.1 [facility] Serum or plasma creatinine m easurement (mass/volume)Ordered By: Dr. Au on 03-21-2023 Creatinine [Mass/Vol] 2.81 mg/dL 0.70-1.30 [facility] Comment on above: The validity of the calculated GFR & GFRAA in patients over 70 years has not been determined. Clinical correlation is essential. Serum or plasma ferritin laurie surement (mass/volume)Ordered By: Dr. Au on 03-21-2023 Ferritin [Mass/Vol] 178 ng/mL 26-388 [facility] Serum or plasma iron saturat ion measurement (mass fraction)Ordered By: Dr. Au on 03-21-2023 Iron saturation [Mass fraction] 39.3 % 15.0-55.[address] [facility] Serum or plasma urea nitroge n measurement (mass/volume)Ordered By: Dr. Au on 03-21-2023 Urea nitrogen [Mass/Vol] 65 mg/dL 7-[address] [facility] Basophil percentageOrdered B y: Dr. Au on 02-21-2023 Basophil percentage 2.8 mg/dL 2.5-4.9 [facility] Bilirubin [Mass/Vol] 0.70 mg/dL 0.20-1.00 [facility] Comment on above: For patients on eltr ombopag therapy, use of Dimension [place] TBIL is not recommended. Chloride [Moles/Vol] 107 mmol/L 98-107 [facility] Cholesterol [Mass/Vol] 88 mg/dL <200 [facility] Comment on above: <200 mg/dL Desirable 200-240 mg/dL Borderline >240 mg/dL High Risk Glucose [Mass/Vol] 167 mg/dL 74-106 [facility] Comment on above: Fasting Glucose resu lt greater than or equal to 126 mg/dL suggests DIABETES MELLITUS per A.D.A. criteria. Potassium [Moles/Vol] 4.3 mmol/L 3.5-5.1 [facility] Protein [Mass/Vol] 7.6 g/dL 6.4-8.2 [facility] Sodium [Moles/Vol] 137 mmol/L 136-145 [facility] Triglyceride [Mass/Vol] 93 mg/dL <199 [facility] Comment on above: The drugs N-Acetylcy steine and Metamizole may falsely depress this assay.Serum Triglycerides Reference Interval Normal <150 mg/dL Borderline high 150 - 199 mg/dL High 200 - 499 mg/dL Very High > or = 500 mg/dL WBC (Bld) [#/Vol] 8.7 10*3/uL 4.4-11.0 [facility] Blood erythrocytes count (nu mber/volume)Ordered By: Dr. Au on 02-21-2023 RBC (Bld) [#/Vol] 3.38 10*6/uL 4.6-6.2 [facility] Blood hemoglobin measurement (mass/volume)Ordered By: Dr. Au on 02-21-2023 Hemoglobin (Bld) [Mass/Vol] 10.7 g/dL 13.0-16.[address] [facility] Blood platelet mean volumeOr dered By: Dr. Au on 02-21-2023 Platelet mean volume (Bld) [Entitic vol] 10.6 fL 6.2-12.[address] [facility] Determination of erythrocyte mean corpuscular volume (MCV)Ordered By: Dr. Au on 02-21-2023 MCV (RBC) [Entitic vol] 98.2 fL 80-94 [facility] Hematocrit Auto (Bld) [Volum e fraction]Ordered By: Dr. Au on 02-21-2023 Hematocrit (Bld) [Volume fraction] 33.2 % 40-[address] [facility] Iron measurement (mass/mass) Ordered By: Dr. Au on 02-21-2023 Iron (Unsp spec) [Mass/Mass] 49 ug/dL 65-[address] [facility] Laboratory - Chemistry and C hemistry - challengeOrdered By: Dr. Au on 02-21-2023 ALP [Catalytic activity/Vol] 137 U/L 45-[address] [facility] ALT [Catalytic activity/Vol] 14 U/L 16-[address] [facility] CO2 [Moles/Vol] 24.0 mmol/L 21.0-32.[address] [facility] Globulin (S) [Mass/Vol] 4.5 g/dL 2.2-4.2 [facility] Urea nitrogen/Creatinine [Mass ratio] 17.2 mg/mg 10-[address] [facility] Laboratory - Hematology and Cell countsOrdered By: Dr. Au on 02-21-2023 Erythrocyte distribution width (RBC) [Entitic vol] 52.2 fL 35.1-43.[address] [facility] Erythrocyte distribution width (RBC) [Ratio] 14.5 % 11.6-14.[address] [facility] MCH (RBC) [Entitic mass] 31.7 pg 27.0-32.[address] [facility] MCHC Auto (RBC) [Mass/Vol]Or dered By: Dr. Au on 02-21-2023 MCHC (RBC) [Mass/Vol] 32.2 g/dL 32-36 [facility] No Panel InformationOrdered By: Dr. Au on 02-21-2023 Estimated GFR (MDRD) Amer 23 mL/min >[address] [facility] Comment on above: GFR Calc Estimated GFR (MDRD) Non-Af Amer 19 mL/min >[address] [facility] Comment on above: Non- GFR Calc Thyroid Stimulating Hormone (TSH) 4.77 uIU/mL 0.358-3.[address] [facility] Total Iron Binding Capacity 201 ug/dL 250-[address] [facility] Platelets bldOrdered By: Dr. Au on 02-21-2023 Platelets (Bld) [#/Vol] 147 10*3/uL 150-[address] [facility] Serum or plasma albumin aubree urement (mass/volume)Ordered By: Dr. Au on 02-21-2023 Albumin [Mass/Vol] 3.1 g/dL 3.2-5.0 [facility] Serum or plasma albumin/glob ulin mass ratioOrdered By: Dr. Au on 02-21-2023 Albumin/Globulin [Mass ratio] 0.7 {ratio} 0.9-2.[address] [facility] Serum or plasma calcium aubree urement (mass/volume)Ordered By: Dr. Au on 02-21-2023 Calcium [Mass/Vol] 8.5 mg/dL 8.5-10.1 [facility] Serum or plasma cholesterol in HDL measurement (mass/volume)Ordered By: Dr. Au on 02-21-2023 Cholesterol in HDL [Mass/Vol] 30 mg/dL >[address] [facility] Comment on above: The drugs N-Acetylcy steine and Metamizole may falsely depress this assay. Reference Range HDL <40 mg/dL Low HDL Cholesterol HDL >or= 60 mg/dL High HDL Cholesterol Serum or plasma cholesterol in VLDL measurement (mass/volume)Ordered By: Dr. Au on 02-21-2023 Cholesterol in VLDL [Mass/Vol] 19 mg/dL 5-[address] [facility] Serum or plasma creatinine m easurement (mass/volume)Ordered By: Dr. Au on 02-21-2023 Creatinine [Mass/Vol] 3.37 mg/dL 0.70-1.30 [facility] Comment on above: The validity of the calculated GFR & GFRAA in patients over 70 years has not been determined. Clinical correlation is essential. Serum or plasma ferritin laurie surement (mass/volume)Ordered By: Dr. Au on 02-21-2023 Ferritin [Mass/Vol] 167 ng/mL 26-388 [facility] Serum or plasma iron saturat ion measurement (mass fraction)Ordered By: Dr. Au on 02-21-2023 Iron saturation [Mass fraction] 24.4 % 15.0-55.[address] [facility] Serum or plasma low density lipoprotein (LDL) cholesterol measurement (mass/volume)Ordered By: Dr. Au on 02-21-2023 Cholesterol in LDL [Mass/Vol] 39 mg/dL 0-[address] [facility] Serum or plasma urea nitroge n measurement (mass/volume)Ordered By: Dr. Au on 02-21-2023 Urea nitrogen [Mass/Vol] 58 mg/dL 7-[address] [facility] Thin prep Papanicolaou smear with manual screeningOrdered By: Dr. Au on 02-21-2023 Thin prep Papanicolaou smear with manual screening 14 U/L 15-[address] [facility] Thin prep Papanicolaou smear with manual screening 6 5-[address] [facility] Whole blood hemoglobin A1c/t otal hemoglobin ratio (mass fraction)Ordered By: Dr. Au on 02-21-2023 HbA1c (Bld) [Mass fraction] 5.6 % 3.8-5.[address] [facility] Comment on above: Normal < 5.7 % Predi abetic 5.7 - 6.4 % Diabetic >or= 6.5 % Please note range changes. Absolute lymphocyte countOrd ered By: Dr. Au on 01-31-2023 Lymphocytes Auto (Unsp spec) [#/Vol] 1.94 10*3/uL 0.83-4.[address] [facility] Basophil percentageOrdered B y: Dr. Au on 01-31-2023 Basophil percentage 4.1 mg/dL 2.5-4.9 [facility] Basophils/100 WBC (Bld) 0.5 % 0-1 [facility] Chloride [Moles/Vol] 103 mmol/L 98-107 [facility] Eosinophils/100 WBC (Bld) 3.3 % 0-[address] [facility] Glucose [Mass/Vol] 145 mg/dL 74-106 [facility] Comment on above: Fasting Glucose resu lt greater than or equal to 126 mg/dL suggests DIABETES MELLITUS per A.D.A. criteria. Neutrophils (Bld) [#/Vol] 6.1 10*3/uL 2.0-7.[address] [facility] Neutrophils/100 WBC (Bld) 67.5 % 47-[address] [facility] Potassium [Moles/Vol] 4.6 mmol/L 3.5-5.1 [facility] Sodium [Moles/Vol] 139 mmol/L 136-145 [facility] WBC (Bld) [#/Vol] 9.1 10*3/uL 4.4-11.0 [facility] Blood erythrocytes count (nu mber/volume)Ordered By: Dr. Au on 01-31-2023 RBC (Bld) [#/Vol] 3.74 10*6/uL 4.6-6.2 [facility] Blood hemoglobin measurement (mass/volume)Ordered By: Dr. Au on 01-31-2023 Hemoglobin (Bld) [Mass/Vol] 11.7 g/dL 13.0-16.[address] [facility] Blood lymphocytes/100 leukoc ytesOrdered By: Dr. Au on 01-31-2023 Lymphocytes/100 WBC (Bld) 21.3 % 19-[address] [facility] Blood monocytes/100 leukocyt esOrdered By: Dr. Au on 01-31-2023 Monocytes/100 WBC (Bld) 6.9 % 0-10 [facility] Blood platelet mean volumeOr dered By: Dr. Au on 01-31-2023 Platelet mean volume (Bld) [Entitic vol] 10.4 fL 6.2-12.[address] [facility] Determination of erythrocyte mean corpuscular volume (MCV)Ordered By: Dr. Au on 01-31-2023 MCV (RBC) [Entitic vol] 100.0 fL 80-94 [facility] Hematocrit Auto (Bld) [Volum e fraction]Ordered By: Dr. Au on 01-31-2023 Hematocrit (Bld) [Volume fraction] 37.4 % 40-[address] [facility] Iron measurement (mass/mass) Ordered By: Dr. Au on 01-31-2023 Iron (Unsp spec) [Mass/Mass] 65 ug/dL 65-[address] [facility] Laboratory - Chemistry and C hemistry - challengeOrdered By: Dr. Au on 01-31-2023 CO2 [Moles/Vol] 29.0 mmol/L 21.0-32.[address] [facility] Urea nitrogen/Creatinine [Mass ratio] 22.1 mg/mg 10-[address] [facility] Laboratory - Hematology and Cell countsOrdered By: Dr. Au on 01-31-2023 Erythrocyte distribution width (RBC) [Entitic vol] 51.0 fL 35.1-43.[address] [facility] Erythrocyte distribution width (RBC) [Ratio] 14.3 % 11.6-14.[address] [facility] Immature granulocytes/100 WBC (Bld) 0.500 % 0.0-0.[address] [facility] Comment on above: IG% - Immature Granu locytes (promyelocytes, myelocytes and metamyelocytes) > 1% indicates that a LEFT SHIFT is Present. MCH (RBC) [Entitic mass] 31.3 pg 27.0-32.[address] [facility] Nucleated RBC/100 WBC (Bld) [Ratio] 0 % 0-[address] [facility] MCHC Auto (RBC) [Mass/Vol]Or dered By: Dr. Au on 01-31-2023 MCHC (RBC) [Mass/Vol] 31.3 g/dL 32-36 [facility] No Panel InformationOrdered By: Dr. Au on 01-31-2023 Estimated GFR (MDRD) Amer 29 mL/min >[address] [facility] Comment on above: GFR Calc Estimated GFR (MDRD) Non-Af Amer 24 mL/min >[address] [facility] Comment on above: Non- GFR Calc Parathyroid Hormone (Intact) 32.8 pg/mL 18.4-80.[address] [facility] Total Iron Binding Capacity 265 ug/dL 250-[address] [facility] Platelets bldOrdered By: Dr. Au on 01-31-2023 Platelets (Bld) [#/Vol] 167 10*3/uL 150-[address] [facility] Serum or plasma albumin aubree urement (mass/volume)Ordered By: Dr. Au on 01-31-2023 Albumin [Mass/Vol] 3.1 g/dL 3.2-5.0 [facility] Serum or plasma calcium aubree urement (mass/volume)Ordered By: Dr. Au on 01-31-2023 Calcium [Mass/Vol] 9.6 mg/dL 8.5-10.1 [facility] Serum or plasma creatinine m easurement (mass/volume)Ordered By: Dr. Au on 01-31-2023 Creatinine [Mass/Vol] 2.76 mg/dL 0.70-1.30 [facility] Comment on above: The validity of the calculated GFR & GFRAA in patients over 70 years has not been determined. Clinical correlation is essential. Serum or plasma ferritin laurie surement (mass/volume)Ordered By: Dr. Au on 01-31-2023 Ferritin [Mass/Vol] 191 ng/mL 26-388 [facility] Serum or plasma iron saturat ion measurement (mass fraction)Ordered By: Dr. Au on 01-31-2023 Iron saturation [Mass fraction] 24.5 % 15.0-55.[address] [facility] Serum or plasma urea nitroge n measurement (mass/volume)Ordered By: Dr. Au on 01-31-2023 Urea nitrogen [Mass/Vol] 61 mg/dL 7-[address] [facility] Serum or plasma uric acid me asurement (mass/volume)Ordered By: Dr. Au on 01-31-2023 Urate [Mass/Vol] 6.2 mg/dL 3.5-7.[address] [facility] Comment on above: The drugs N-Acetylcy steine and Metamizole may falsely depress this assay. Urine creatinine measurement (mass/volume)Ordered By: Dr. Au on 01-31-2023 Creatinine (U) [Mass/Vol] 119.00 mg/dL NO RANGE EST. [facility] Urine protein measurement (m ass/volume)Ordered By: Dr. Au on 01-31-2023 Protein (U) [Mass/Vol] 64.8 mg/dL 0.0-11.8 [facility] Urine protein/creatinine mas s ratioOrdered By: Dr. Au on 01-31-2023 Protein/Creatinine (U) [Mass ratio] 545 mg/g CRE 0-[address] [facility] Absolute lymphocyte countOrd ered By: Dr. Au on 01-24-2023 Lymphocytes Auto (Unsp spec) [#/Vol] 1.96 10*3/uL 0.83-4.[address] [facility] Basophil percentageOrdered B y: Dr. Au on 01-24-2023 Basophil percentage 3.7 mg/dL 2.5-4.9 [facility] Basophils/100 WBC (Bld) 0.4 % 0-1 [facility] Chloride [Moles/Vol] 105 mmol/L 98-107 [facility] Eosinophils/100 WBC (Bld) 2.6 % 0-[address] [facility] Glucose [Mass/Vol] 182 mg/dL 74-106 [facility] Comment on above: Fasting Glucose resu lt greater than or equal to 126 mg/dL suggests DIABETES MELLITUS per A.D.A. criteria. Neutrophils (Bld) [#/Vol] 6.3 10*3/uL 2.0-7.[address] [facility] Neutrophils/100 WBC (Bld) 69.4 % 47-[address] [facility] Potassium [Moles/Vol] 4.7 mmol/L 3.5-5.1 [facility] Sodium [Moles/Vol] 141 mmol/L 136-145 [facility] WBC (Bld) [#/Vol] 9.1 10*3/uL 4.4-11.0 [facility] Blood erythrocytes count (nu mber/volume)Ordered By: Dr. Au on 01-24-2023 RBC (Bld) [#/Vol] 3.46 10*6/uL 4.6-6.2 [facility] Blood hemoglobin measurement (mass/volume)Ordered By: Dr. Au on 01-24-2023 Hemoglobin (Bld) [Mass/Vol] 10.9 g/dL 13.0-16.[address] [facility] Blood lymphocytes/100 leukoc ytesOrdered By: Dr. Au on 01-24-2023 Lymphocytes/100 WBC (Bld) 21.4 % 19-[address] [facility] Blood monocytes/100 leukocyt esOrdered By: Dr. Au on 01-24-2023 Monocytes/100 WBC (Bld) 5.8 % 0-10 [facility] Blood platelet mean volumeOr dered By: Dr. Au on 01-24-2023 Platelet mean volume (Bld) [Entitic vol] 10.3 fL 6.2-12.[address] [facility] Determination of erythrocyte mean corpuscular volume (MCV)Ordered By: Dr. Au on 01-24-2023 MCV (RBC) [Entitic vol] 98.8 fL 80-94 [facility] Hematocrit Auto (Bld) [Volum e fraction]Ordered By: Dr. Au on 01-24-2023 Hematocrit (Bld) [Volume fraction] 34.2 % 40-[address] [facility] Iron measurement (mass/mass) Ordered By: Dr. Au on 01-24-2023 Iron (Unsp spec) [Mass/Mass] 68 ug/dL 65-[address] [facility] Laboratory - Chemistry and C hemistry - challengeOrdered By: Dr. Au on 01-24-2023 CO2 [Moles/Vol] 28.0 mmol/L 21.0-32.[address] [facility] Urea nitrogen/Creatinine [Mass ratio] 22.6 mg/mg 10-[address] [facility] Laboratory - Hematology and Cell countsOrdered By: Dr. Au on 01-24-2023 Erythrocyte distribution width (RBC) [Entitic vol] 50.6 fL 35.1-43.[address] [facility] Erythrocyte distribution width (RBC) [Ratio] 14.2 % 11.6-14.[address] [facility] Immature granulocytes/100 WBC (Bld) 0.400 % 0.0-0.[address] [facility] Comment on above: IG% - Immature Granu locytes (promyelocytes, myelocytes and metamyelocytes) > 1% indicates that a LEFT SHIFT is Present. MCH (RBC) [Entitic mass] 31.5 pg 27.0-32.[address] [facility] Nucleated RBC/100 WBC (Bld) [Ratio] 0 % 0-[address] [facility] MCHC Auto (RBC) [Mass/Vol]Or dered By: Dr. Au on 01-24-2023 MCHC (RBC) [Mass/Vol] 31.9 g/dL 32-36 [facility] No Panel InformationOrdered By: Dr. Au on 01-24-2023 Estimated GFR (MDRD) Amer 30 mL/min >[address] [facility] Comment on above: GFR Calc Estimated GFR (MDRD) Non-Af Amer 25 mL/min >[address] [facility] Comment on above: Non- GFR Calc Total Iron Binding Capacity 202 ug/dL 250-[address] [facility] Platelets bldOrdered By: Dr. Au on 01-24-2023 Platelets (Bld) [#/Vol] 149 10*3/uL 150-[address] [facility] Serum or plasma albumin aubree urement (mass/volume)Ordered By: Dr. Au on 01-24-2023 Albumin [Mass/Vol] 3.0 g/dL 3.2-5.0 [facility] Serum or plasma calcium aubree urement (mass/volume)Ordered By: Dr. Au on 01-24-2023 Calcium [Mass/Vol] 9.5 mg/dL 8.5-10.1 [facility] Serum or plasma creatinine m easurement (mass/volume)Ordered By: Dr. Au on 01-24-2023 Creatinine [Mass/Vol] 2.65 mg/dL 0.70-1.30 [facility] Comment on above: The validity of the calculated GFR & GFRAA in patients over 70 years has not been determined. Clinical correlation is essential. Serum or plasma ferritin laurie surement (mass/volume)Ordered By: Dr. Au on 01-24-2023 Ferritin [Mass/Vol] 191 ng/mL 26-388 [facility] Serum or plasma iron saturat ion measurement (mass fraction)Ordered By: Dr. Au on 01-24-2023 Iron saturation [Mass fraction] 33.7 % 15.0-55.[address] [facility] Serum or plasma urea nitroge n measurement (mass/volume)Ordered By: Dr. Au on 01-24-2023 Urea nitrogen [Mass/Vol] 60 mg/dL 7-[address] [facility] Absolute lymphocyte countOrd ered By: Dr. Au on 12-28-2022 Lymphocytes Auto (Unsp spec) [#/Vol] 1.99 10*3/uL 0.83-4.[address] [facility] Basophil percentageOrdered B y: Dr. Au on 12-28-2022 Basophil percentage 3.9 mg/dL 2.5-4.9 [facility] Basophils/100 WBC (Bld) 0.2 % 0-1 [facility] Chloride [Moles/Vol] 107 mmol/L 98-107 [facility] Eosinophils/100 WBC (Bld) 3.0 % 0-[address] [facility] Glucose [Mass/Vol] 214 mg/dL 74-106 [facility] Comment on above: Glucose result great er than or equal to 200 mg/dLsuggests DIABETES MELLITUS per A.D.A. criteria. Neutrophils (Bld) [#/Vol] 6.4 10*3/uL 2.0-7.[address] [facility] Neutrophils/100 WBC (Bld) 68.1 % 47-[address] [facility] Potassium [Moles/Vol] 4.3 mmol/L 3.5-5.1 [facility] Sodium [Moles/Vol] 141 mmol/L 136-145 [facility] WBC (Bld) [#/Vol] 9.4 10*3/uL 4.4-11.0 [facility] Blood erythrocytes count (nu mber/volume)Ordered By: Dr. Au on 12-28-2022 RBC (Bld) [#/Vol] 3.66 10*6/uL 4.6-6.2 [facility] Blood hemoglobin measurement (mass/volume)Ordered By: Dr. Au on 12-28-2022 Hemoglobin (Bld) [Mass/Vol] 11.5 g/dL 13.0-16.[address] [facility] Blood lymphocytes/100 leukoc ytesOrdered By: Dr. Au on 12-28-2022 Lymphocytes/100 WBC (Bld) 21.3 % 19-[address] [facility] Blood monocytes/100 leukocyt esOrdered By: Dr. Au on 12-28-2022 Monocytes/100 WBC (Bld) 7.1 % 0-10 [facility] Blood platelet mean volumeOr dered By: Dr. Au on 12-28-2022 Platelet mean volume (Bld) [Entitic vol] 10.4 fL 6.2-12.[address] [facility] Determination of erythrocyte mean corpuscular volume (MCV)Ordered By: Dr. Au on 12-28-2022 MCV (RBC) [Entitic vol] 97.0 fL 80-94 [facility] Hematocrit Auto (Bld) [Volum e fraction]Ordered By: Dr. Au on 12-28-2022 Hematocrit (Bld) [Volume fraction] 35.5 % 40-[address] [facility] Iron measurement (mass/mass) Ordered By: Dr. Au on 12-28-2022 Iron (Unsp spec) [Mass/Mass] 54 ug/dL 65-[address] [facility] Laboratory - Chemistry and C hemistry - challengeOrdered By: Dr. Au on 12-28-2022 CO2 [Moles/Vol] 28.0 mmol/L 21.0-32.[address] [facility] Urea nitrogen/Creatinine [Mass ratio] 23.6 mg/mg 10-[address] [facility] Laboratory - Hematology and Cell countsOrdered By: Dr. Au on 12-28-2022 Erythrocyte distribution width (RBC) [Entitic vol] 50.2 fL 35.1-43.[address] [facility] Erythrocyte distribution width (RBC) [Ratio] 14.3 % 11.6-14.[address] [facility] Immature granulocytes/100 WBC (Bld) 0.300 % 0.0-0.[address] [facility] Comment on above: IG% - Immature Granu locytes (promyelocytes, myelocytes and metamyelocytes) > 1% indicates that a LEFT SHIFT is Present. MCH (RBC) [Entitic mass] 31.4 pg 27.0-32.[address] [facility] Nucleated RBC/100 WBC (Bld) [Ratio] 0 % 0-[address] [facility] MCHC Auto (RBC) [Mass/Vol]Or dered By: Dr. Au on 12-28-2022 MCHC (RBC) [Mass/Vol] 32.4 g/dL 32-36 [facility] No Panel InformationOrdered By: Dr. Au on 12-28-2022 Estimated GFR (MDRD) Amer 30 mL/min >[address] [facility] Comment on above: GFR Calc Estimated GFR (MDRD) Non-Af Amer 25 mL/min >[address] [facility] Comment on above: Non- GFR Calc Total Iron Binding Capacity 244 ug/dL 250-[address] [facility] Platelets bldOrdered By: Dr. Au on 12-28-2022 Platelets (Bld) [#/Vol] 148 10*3/uL 150-[address] [facility] Serum or plasma albumin aubree urement (mass/volume)Ordered By: Dr. Au on 12-28-2022 Albumin [Mass/Vol] 3.1 g/dL 3.2-5.0 [facility] Serum or plasma calcium aubree urement (mass/volume)Ordered By: Dr. Au on 12-28-2022 Calcium [Mass/Vol] 9.7 mg/dL 8.5-10.1 [facility] Serum or plasma creatinine m easurement (mass/volume)Ordered By: Dr. Au on 12-28-2022 Creatinine [Mass/Vol] 2.63 mg/dL 0.70-1.30 [facility] Comment on above: The validity of the calculated GFR & GFRAA in patients over 70 years has not been determined. Clinical correlation is essential. Serum or plasma ferritin laurie surement (mass/volume)Ordered By: Dr. Au on 12-28-2022 Ferritin [Mass/Vol] 193 ng/mL 26-388 [facility] Serum or plasma iron saturat ion measurement (mass fraction)Ordered By: Dr. Au on 12-28-2022 Iron saturation [Mass fraction] 22.1 % 15.0-55.[address] [facility] Serum or plasma urea nitroge n measurement (mass/volume)Ordered By: Dr. Au on 12-28-2022 Urea nitrogen [Mass/Vol] 62 mg/dL 7-[address] [facility] Absolute lymphocyte countOrd ered By: Dr. Au on 12-02-2022 Lymphocytes Auto (Unsp spec) [#/Vol] 1.85 10*3/uL 0.83-4.[address] [facility] Basophil percentageOrdered B y: Dr. Au on 12-02-2022 Basophil percentage 3.8 mg/dL 2.5-4.9 [facility] Basophils/100 WBC (Bld) 0.4 % 0-1 [facility] Chloride [Moles/Vol] 108 mmol/L 98-107 [facility] Eosinophils/100 WBC (Bld) 2.8 % 0-[address] [facility] Glucose [Mass/Vol] 180 mg/dL 74-106 [facility] Comment on above: Fasting Glucose resu lt greater than or equal to 126 mg/dL suggests DIABETES MELLITUS per A.D.A. criteria. Neutrophils (Bld) [#/Vol] 5.7 10*3/uL 2.0-7.[address] [facility] Neutrophils/100 WBC (Bld) 67.2 % 47-[address] [facility] Potassium [Moles/Vol] 4.3 mmol/L 3.5-5.1 [facility] Sodium [Moles/Vol] 142 mmol/L 136-145 [facility] WBC (Bld) [#/Vol] 8.5 10*3/uL 4.4-11.0 [facility] Blood erythrocytes count (nu mber/volume)Ordered By: Dr. Au on 12-02-2022 RBC (Bld) [#/Vol] 3.44 10*6/uL 4.6-6.2 [facility] Blood hemoglobin measurement (mass/volume)Ordered By: Dr. Au on 12-02-2022 Hemoglobin (Bld) [Mass/Vol] 11.0 g/dL 13.0-16.[address] [facility] Blood lymphocytes/100 leukoc ytesOrdered By: Dr. Au on 12-02-2022 Lymphocytes/100 WBC (Bld) 21.8 % 19-[address] [facility] Blood monocytes/100 leukocyt esOrdered By: Dr. Au on 12-02-2022 Monocytes/100 WBC (Bld) 7.4 % 0-10 [facility] Blood platelet mean volumeOr dered By: Dr. Au on 12-02-2022 Platelet mean volume (Bld) [Entitic vol] 10.4 fL 6.2-12.[address] [facility] Determination of erythrocyte mean corpuscular volume (MCV)Ordered By: Dr. Au on 12-02-2022 MCV (RBC) [Entitic vol] 98.3 fL 80-94 [facility] Hematocrit Auto (Bld) [Volum e fraction]Ordered By: Dr. Au on 12-02-2022 Hematocrit (Bld) [Volume fraction] 33.8 % 40-[address] [facility] Iron measurement (mass/mass) Ordered By: Dr. Au on 12-02-2022 Iron (Unsp spec) [Mass/Mass] 64 ug/dL 65-[address] [facility] Laboratory - Chemistry and C hemistry - challengeOrdered By: Dr. Au on 12-02-2022 CO2 [Moles/Vol] 31.0 mmol/L 21.0-32.[address] [facility] Urea nitrogen/Creatinine [Mass ratio] 23.0 mg/mg 10-[address] [facility] Laboratory - Hematology and Cell countsOrdered By: Dr. Au on 12-02-2022 Erythrocyte distribution width (RBC) [Entitic vol] 51.8 fL 35.1-43.[address] [facility] Erythrocyte distribution width (RBC) [Ratio] 14.4 % 11.6-14.[address] [facility] Immature granulocytes/100 WBC (Bld) 0.400 % 0.0-0.[address] [facility] Comment on above: IG% - Immature Granu locytes (promyelocytes, myelocytes and metamyelocytes) > 1% indicates that a LEFT SHIFT is Present. MCH (RBC) [Entitic mass] 32.0 pg 27.0-32.[address] [facility] Nucleated RBC/100 WBC (Bld) [Ratio] 0 % 0-[address] [facility] MCHC Auto (RBC) [Mass/Vol]Or dered By: Dr. Au on 12-02-2022 MCHC (RBC) [Mass/Vol] 32.5 g/dL 32-36 [facility] No Panel InformationOrdered By: Dr. Au on 12-02-2022 Estimated GFR (MDRD) Amer 29 mL/min >[address] [facility] Comment on above: GFR Calc Estimated GFR (MDRD) Non-Af Amer 24 mL/min >[address] [facility] Comment on above: Non- GFR Calc Parathyroid Hormone (Intact) 16.7 pg/mL 18.4-80.[address] [facility] Total Iron Binding Capacity 230 ug/dL 250-[address] [facility] Platelets bldOrdered By: Dr. Au on 12-02-2022 Platelets (Bld) [#/Vol] 158 10*3/uL 150-[address] [facility] Serum or plasma albumin aubree urement (mass/volume)Ordered By: Dr. Au on 12-02-2022 Albumin [Mass/Vol] 3.4 g/dL 3.2-5.0 [facility] Serum or plasma calcium aubree urement (mass/volume)Ordered By: Dr. Au on 12-02-2022 Calcium [Mass/Vol] 10.0 mg/dL 8.5-10.1 [facility] Serum or plasma creatinine m easurement (mass/volume)Ordered By: Dr. Au on 12-02-2022 Creatinine [Mass/Vol] 2.74 mg/dL 0.70-1.30 [facility] Comment on above: The validity of the calculated GFR & GFRAA in patients over 70 years has not been determined. Clinical correlation is essential. Serum or plasma ferritin laurie surement (mass/volume)Ordered By: Dr. Au on 12-02-2022 Ferritin [Mass/Vol] 185 ng/mL 26-388 [facility] Serum or plasma iron saturat ion measurement (mass fraction)Ordered By: Dr. Au on 12-02-2022 Iron saturation [Mass fraction] 27.8 % 15.0-55.[address] [facility] Serum or plasma urea nitroge n measurement (mass/volume)Ordered By: Dr. Au on 12-02-2022 Urea nitrogen [Mass/Vol] 63 mg/dL 7-[address] [facility] Basophil percentageOrdered B y: Dr. Espino on 11-24-2022 Bilirubin [Mass/Vol] 0.90 mg/dL 0.20-1.00 [facility] Comment on above: For patients on eltr ombopag therapy, use of Dimension [place] TBIL is not recommended. Chloride [Moles/Vol] 107 mmol/L 98-107 [facility] Cholesterol [Mass/Vol] 103 mg/dL <200 [facility] Comment on above: <200 mg/dL Desirable 200-240 mg/dL Borderline >240 mg/dL High Risk Glucose [Mass/Vol] 142 mg/dL 74-106 [facility] Comment on above: Fasting Glucose resu lt greater than or equal to 126 mg/dL suggests DIABETES MELLITUS per A.D.A. criteria. Potassium [Moles/Vol] 4.6 mmol/L 3.5-5.1 [facility] Protein [Mass/Vol] 7.6 g/dL 6.4-8.2 [facility] Sodium [Moles/Vol] 142 mmol/L 136-145 [facility] Triglyceride [Mass/Vol] 141 mg/dL <199 [facility] Comment on above: The drugs N-Acetylcy steine and Metamizole may falsely depress this assay.Serum Triglycerides Reference Interval Normal <150 mg/dL Borderline high 150 - 199 mg/dL High 200 - 499 mg/dL Very High > or = 500 mg/dL WBC (Bld) [#/Vol] 9.1 10*3/uL 4.4-11.0 [facility] Blood erythrocytes count (nu mber/volume)Ordered By: Dr. Espino on 11-24-2022 RBC (Bld) [#/Vol] 3.51 10*6/uL 4.6-6.2 [facility] Blood hemoglobin measurement (mass/volume)Ordered By: Dr. Espino on 11-24-2022 Hemoglobin (Bld) [Mass/Vol] 11.3 g/dL 13.0-16.[address] [facility] Blood platelet mean volumeOr dered By: Dr. Espino on 11-24-2022 Platelet mean volume (Bld) [Entitic vol] 11.1 fL 6.2-12.[address] [facility] Determination of erythrocyte mean corpuscular volume (MCV)Ordered By: Dr. Espino on 11-24-2022 MCV (RBC) [Entitic vol] 99.7 fL 80-94 [facility] Hematocrit Auto (Bld) [Volum e fraction]Ordered By: Dr. Espino on 11-24-2022 Hematocrit (Bld) [Volume fraction] 35.0 % 40-[address] [facility] Laboratory - Chemistry and C hemistry - challengeOrdered By: Dr. Espino on 11-24-2022 ALP [Catalytic activity/Vol] 135 U/L 45-[address] [facility] ALT [Catalytic activity/Vol] 17 U/L 16-[address] [facility] CO2 [Moles/Vol] 30.0 mmol/L 21.0-32.[address] [facility] Globulin (S) [Mass/Vol] 4.3 g/dL 2.2-4.2 [facility] Urea nitrogen/Creatinine [Mass ratio] 23.0 mg/mg 10-[address] [facility] Laboratory - Hematology and Cell countsOrdered By: Dr. Espino on 11-24-2022 Erythrocyte distribution width (RBC) [Entitic vol] 52.0 fL 35.1-43.[address] [facility] Erythrocyte distribution width (RBC) [Ratio] 14.4 % 11.6-14.[address] [facility] MCH (RBC) [Entitic mass] 32.2 pg 27.0-32.[address] [facility] MCHC Auto (RBC) [Mass/Vol]Or dered By: Dr. Espino on 11-24-2022 MCHC (RBC) [Mass/Vol] 32.3 g/dL 32-36 [facility] No Panel InformationOrdered By: Dr. Espino on 11-24-2022 Estimated GFR (MDRD) Amer 33 mL/min >[address] [facility] Comment on above: GFR Calc Estimated GFR (MDRD) Non-Af Amer 27 mL/min >[address] [facility] Comment on above: Non- GFR Calc Thyroid Stimulating Hormone (TSH) 5.30 uIU/mL 0.358-3.[address] [facility] Platelets bldOrdered By: Dr. Espino on 11-24-2022 Platelets (Bld) [#/Vol] 148 10*3/uL 150-[address] [facility] Serum or plasma albumin aubree urement (mass/volume)Ordered By: Dr. Espino on 11-24-2022 Albumin [Mass/Vol] 3.3 g/dL 3.2-5.0 [facility] Serum or plasma albumin/glob ulin mass ratioOrdered By: Dr. Espino on 11-24-2022 Albumin/Globulin [Mass ratio] 0.8 {ratio} 0.9-2.[address] [facility] Serum or plasma calcium aubree urement (mass/volume)Ordered By: Dr. Espino on 11-24-2022 Calcium [Mass/Vol] 9.0 mg/dL 8.5-10.1 [facility] Serum or plasma cholesterol in HDL measurement (mass/volume)Ordered By: Dr. Espino on 11-24-2022 Cholesterol in HDL [Mass/Vol] 29 mg/dL >[address] [facility] Comment on above: The drugs N-Acetylcy steine and Metamizole may falsely depress this assay. Reference Range HDL <40 mg/dL Low HDL Cholesterol HDL >or= 60 mg/dL High HDL Cholesterol Serum or plasma cholesterol in VLDL measurement (mass/volume)Ordered By: Dr. Espino on 11-24-2022 Cholesterol in VLDL [Mass/Vol] 28 mg/dL 5-[address] [facility] Serum or plasma creatinine m easurement (mass/volume)Ordered By: Dr. Espino on 11-24-2022 Creatinine [Mass/Vol] 2.44 mg/dL 0.70-1.30 [facility] Comment on above: The validity of the calculated GFR & GFRAA in patients over 70 years has not been determined. Clinical correlation is essential. Serum or plasma low density lipoprotein (LDL) cholesterol measurement (mass/volume)Ordered By: Dr. Espino on 11-24-2022 Cholesterol in LDL [Mass/Vol] 46 mg/dL 0-[address] [facility] Serum or plasma urea nitroge n measurement (mass/volume)Ordered By: Dr. Espino on 11-24-2022 Urea nitrogen [Mass/Vol] 56 mg/dL 7-[address] [facility] Thin prep Papanicolaou smear with manual screeningOrdered By: Dr. Espino on 11-24-2022 Thin prep Papanicolaou smear with manual screening 19 U/L 15-[address] [facility] Thin prep Papanicolaou smear with manual screening 5 5-[address] [facility] Whole blood hemoglobin A1c/t otal hemoglobin ratio (mass fraction)Ordered By: Dr. Espino on 11-24-2022 HbA1c (Bld) [Mass fraction] 5.8 % 3.8-5.[address] [facility] Comment on above: Normal < 5.7 % Predi abetic 5.7 - 6.4 % Diabetic >or= 6.5 % Please note range changes. Absolute lymphocyte countOrd ered By: Dr. Au on 11-01-2022 Lymphocytes Auto (Unsp spec) [#/Vol] 2.34 10*3/uL 0.83-4.[address] [facility] Basophil percentageOrdered B y: Dr. Au on 11-01-2022 Basophil percentage 3.7 mg/dL 2.5-4.9 [facility] Basophils/100 WBC (Bld) 0.4 % 0-1 [facility] Chloride [Moles/Vol] 105 mmol/L 98-107 [facility] Eosinophils/100 WBC (Bld) 2.1 % 0-[address] [facility] Glucose [Mass/Vol] 168 mg/dL 74-106 [facility] Comment on above: Fasting Glucose resu lt greater than or equal to 126 mg/dL suggests DIABETES MELLITUS per A.D.A. criteria. Neutrophils (Bld) [#/Vol] 7.0 10*3/uL 2.0-7.[address] [facility] Neutrophils/100 WBC (Bld) 67.9 % 47-[address] [facility] Potassium [Moles/Vol] 4.0 mmol/L 3.5-5.1 [facility] Sodium [Moles/Vol] 140 mmol/L 136-145 [facility] WBC (Bld) [#/Vol] 10.3 10*3/uL 4.4-11.0 [facility] Blood erythrocytes count (nu mber/volume)Ordered By: Dr. Au on 11-01-2022 RBC (Bld) [#/Vol] 3.58 10*6/uL 4.6-6.2 [facility] Blood hemoglobin measurement (mass/volume)Ordered By: Dr. Au on 11-01-2022 Hemoglobin (Bld) [Mass/Vol] 11.2 g/dL 13.0-16.[address] [facility] Blood lymphocytes/100 leukoc ytesOrdered By: Dr. Au on 11-01-2022 Lymphocytes/100 WBC (Bld) 22.7 % 19-[address] [facility] Blood monocytes/100 leukocyt esOrdered By: Dr. Au on 11-01-2022 Monocytes/100 WBC (Bld) 6.5 % 0-10 [facility] Blood platelet mean volumeOr dered By: Dr. Au on 11-01-2022 Platelet mean volume (Bld) [Entitic vol] 10.0 fL 6.2-12.[address] [facility] Determination of erythrocyte mean corpuscular volume (MCV)Ordered By: Dr. Au on 11-01-2022 MCV (RBC) [Entitic vol] 99.2 fL 80-94 [facility] Hematocrit Auto (Bld) [Volum e fraction]Ordered By: Dr. Au on 11-01-2022 Hematocrit (Bld) [Volume fraction] 35.5 % 40-[address] [facility] Iron measurement (mass/mass) Ordered By: Dr. Au on 11-01-2022 Iron (Unsp spec) [Mass/Mass] 69 ug/dL 65-[address] [facility] Laboratory - Chemistry and C hemistry - challengeOrdered By: Dr. Au on 11-01-2022 CO2 [Moles/Vol] 29.0 mmol/L 21.0-32.[address] [facility] Urea nitrogen/Creatinine [Mass ratio] 21.5 mg/mg 10-[address] [facility] Laboratory - Hematology and Cell countsOrdered By: Dr. Au on 11-01-2022 Erythrocyte distribution width (RBC) [Entitic vol] 51.2 fL 35.1-43.[address] [facility] Erythrocyte distribution width (RBC) [Ratio] 14.4 % 11.6-14.[address] [facility] Immature granulocytes/100 WBC (Bld) 0.400 % 0.0-0.[address] [facility] Comment on above: IG% - Immature Granu locytes (promyelocytes, myelocytes and metamyelocytes) > 1% indicates that a LEFT SHIFT is Present. MCH (RBC) [Entitic mass] 31.3 pg 27.0-32.[address] [facility] Nucleated RBC/100 WBC (Bld) [Ratio] 0 % 0-[address] [facility] MCHC Auto (RBC) [Mass/Vol]Or dered By: Dr. Au on 11-01-2022 MCHC (RBC) [Mass/Vol] 31.5 g/dL 32-36 [facility] No Panel InformationOrdered By: Dr. Au on 11-01-2022 Estimated GFR (MDRD) Amer 30 mL/min >[address] [facility] Comment on above: GFR Calc Estimated GFR (MDRD) Non-Af Amer 25 mL/min >[address] [facility] Comment on above: Non- GFR Calc Total Iron Binding Capacity 228 ug/dL 250-[address] [facility] Platelets bldOrdered By: Dr. Au on 11-01-2022 Platelets (Bld) [#/Vol] 155 10*3/uL 150-[address] [facility] Serum or plasma albumin aubree urement (mass/volume)Ordered By: Dr. Au on 11-01-2022 Albumin [Mass/Vol] 3.3 g/dL 3.2-5.0 [facility] Serum or plasma calcium aubree urement (mass/volume)Ordered By: Dr. Au on 11-01-2022 Calcium [Mass/Vol] 9.6 mg/dL 8.5-10.1 [facility] Serum or plasma creatinine m easurement (mass/volume)Ordered By: Dr. Au on 11-01-2022 Creatinine [Mass/Vol] 2.61 mg/dL 0.70-1.30 [facility] Comment on above: The validity of the calculated GFR & GFRAA in patients over 70 years has not been determined. Clinical correlation is essential. Serum or plasma ferritin laurie surement (mass/volume)Ordered By: Dr. Au on 11-01-2022 Ferritin [Mass/Vol] 166 ng/mL 26-388 [facility] Serum or plasma iron saturat ion measurement (mass fraction)Ordered By: Dr. Au on 11-01-2022 Iron saturation [Mass fraction] 30.3 % 15.0-55.[address] [facility] Serum or plasma urea nitroge n measurement (mass/volume)Ordered By: Dr. Au on 11-01-2022 Urea nitrogen [Mass/Vol] 56 mg/dL 7-[address] [facility] Absolute lymphocyte countOrd ered By: Dr. Au on 10-04-2022 Lymphocytes Auto (Unsp spec) [#/Vol] 1.62 10*3/uL 0.83-4.[address] [facility] Basophil percentageOrdered B y: Dr. Au on 10-04-2022 Basophil percentage 2.5 mg/dL 2.5-4.9 [facility] Basophils/100 WBC (Bld) 0.3 % 0-1 [facility] Chloride [Moles/Vol] 107 mmol/L 98-107 [facility] Eosinophils/100 WBC (Bld) 2.3 % 0-[address] [facility] Glucose [Mass/Vol] 180 mg/dL 74-106 [facility] Comment on above: Fasting Glucose resu lt greater than or equal to 126 mg/dL suggests DIABETES MELLITUS per A.D.A. criteria. Neutrophils (Bld) [#/Vol] 6.5 10*3/uL 2.0-7.[address] [facility] Neutrophils/100 WBC (Bld) 73.0 % 47-[address] [facility] Potassium [Moles/Vol] 4.3 mmol/L 3.5-5.1 [facility] Sodium [Moles/Vol] 140 mmol/L 136-145 [facility] WBC (Bld) [#/Vol] 9.0 10*3/uL 4.4-11.0 [facility] Blood erythrocytes count (nu mber/volume)Ordered By: Dr. Au on 10-04-2022 RBC (Bld) [#/Vol] 3.42 10*6/uL 4.6-6.2 [facility] Blood hemoglobin measurement (mass/volume)Ordered By: Dr. Au on 10-04-2022 Hemoglobin (Bld) [Mass/Vol] 10.7 g/dL 13.0-16.[address] [facility] Blood lymphocytes/100 leukoc ytesOrdered By: Dr. Au on 10-04-2022 Lymphocytes/100 WBC (Bld) 18.1 % 19-[address] [facility] Blood monocytes/100 leukocyt esOrdered By: Dr. Au on 10-04-2022 Monocytes/100 WBC (Bld) 6.0 % 0-10 [facility] Blood platelet mean volumeOr dered By: Dr. Au on 10-04-2022 Platelet mean volume (Bld) [Entitic vol] 10.7 fL 6.2-12.[address] [facility] Determination of erythrocyte mean corpuscular volume (MCV)Ordered By: Dr. Au on 10-04-2022 MCV (RBC) [Entitic vol] 98.8 fL 80-94 [facility] Hematocrit Auto (Bld) [Volum e fraction]Ordered By: Dr. Au on 10-04-2022 Hematocrit (Bld) [Volume fraction] 33.8 % 40-[address] [facility] Iron measurement (mass/mass) Ordered By: Dr. Au on 10-04-2022 Iron (Unsp spec) [Mass/Mass] 56 ug/dL 65-[address] [facility] Laboratory - Chemistry and C hemistry - challengeOrdered By: Dr. Au on 10-04-2022 CO2 [Moles/Vol] 29.0 mmol/L 21.0-32.[address] [facility] Urea nitrogen/Creatinine [Mass ratio] 19.6 mg/mg 10-[address] [facility] Laboratory - Hematology and Cell countsOrdered By: Dr. Au on 10-04-2022 Erythrocyte distribution width (RBC) [Entitic vol] 52.6 fL 35.1-43.[address] [facility] Erythrocyte distribution width (RBC) [Ratio] 14.6 % 11.6-14.[address] [facility] Immature granulocytes/100 WBC (Bld) 0.300 % 0.0-0.[address] [facility] Comment on above: IG% - Immature Granu locytes (promyelocytes, myelocytes and metamyelocytes) > 1% indicates that a LEFT SHIFT is Present. MCH (RBC) [Entitic mass] 31.3 pg 27.0-32.[address] [facility] Nucleated RBC/100 WBC (Bld) [Ratio] 0 % 0-[address] [facility] MCHC Auto (RBC) [Mass/Vol]Or dered By: Dr. Au on 10-04-2022 MCHC (RBC) [Mass/Vol] 31.7 g/dL 32-36 [facility] No Panel InformationOrdered By: Dr. Au on 10-04-2022 Estimated GFR (MDRD) Amer 34 mL/min >[address] [facility] Comment on above: GFR Calc Estimated GFR (MDRD) Non-Af Amer 28 mL/min >[address] [facility] Comment on above: Non- GFR Calc Total Iron Binding Capacity 276 ug/dL 250-[address] [facility] Platelets bldOrdered By: Dr. Au on 10-04-2022 Platelets (Bld) [#/Vol] 145 10*3/uL 150-[address] [facility] Serum or plasma albumin aubree urement (mass/volume)Ordered By: Dr. Au on 10-04-2022 Albumin [Mass/Vol] 3.0 g/dL 3.2-5.0 [facility] Serum or plasma calcium aubree urement (mass/volume)Ordered By: Dr. Au on 10-04-2022 Calcium [Mass/Vol] 9.1 mg/dL 8.5-10.1 [facility] Serum or plasma creatinine m easurement (mass/volume)Ordered By: Dr. Au on 10-04-2022 Creatinine [Mass/Vol] 2.35 mg/dL 0.70-1.30 [facility] Comment on above: The validity of the calculated GFR & GFRAA in patients over 70 years has not been determined. Clinical correlation is essential. Serum or plasma ferritin laurie surement (mass/volume)Ordered By: Dr. Au on 10-04-2022 Ferritin [Mass/Vol] 205 ng/mL 26-388 [facility] Serum or plasma iron saturat ion measurement (mass fraction)Ordered By: Dr. Au on 10-04-2022 Iron saturation [Mass fraction] 20.3 % 15.0-55.[address] [facility] Serum or plasma urea nitroge n measurement (mass/volume)Ordered By: Dr. Au on 10-04-2022 Urea nitrogen [Mass/Vol] 46 mg/dL 7-[address] [facility] Absolute lymphocyte countOrd ered By: Dr. Au on 09-29-2022 Lymphocytes Auto (Unsp spec) [#/Vol] 1.94 10*3/uL 0.83-4.[address] [facility] Basophil percentageOrdered B y: Dr. Au on 09-29-2022 Basophil percentage 3.0 mg/dL 2.5-4.9 [facility] Basophils/100 WBC (Bld) 0.4 % 0-1 [facility] Chloride [Moles/Vol] 105 mmol/L 98-107 [facility] Eosinophils/100 WBC (Bld) 2.3 % 0-[address] [facility] Glucose [Mass/Vol] 121 mg/dL 74-106 [facility] Comment on above: Fasting Glucose resu lt from 100 to 125 mg/dL suggests IMPAIRED HOMEOSTASIS per A.D.A. criteria. Neutrophils (Bld) [#/Vol] 6.8 10*3/uL 2.0-7.[address] [facility] Neutrophils/100 WBC (Bld) 70.7 % 47-[address] [facility] Potassium [Moles/Vol] 4.0 mmol/L 3.5-5.1 [facility] Sodium [Moles/Vol] 139 mmol/L 136-145 [facility] WBC (Bld) [#/Vol] 9.6 10*3/uL 4.4-11.0 [facility] Blood erythrocytes count (nu mber/volume)Ordered By: Dr. Au on 09-29-2022 RBC (Bld) [#/Vol] 3.42 10*6/uL 4.6-6.2 [facility] Blood hemoglobin measurement (mass/volume)Ordered By: Dr. Au on 09-29-2022 Hemoglobin (Bld) [Mass/Vol] 10.9 g/dL 13.0-16.[address] [facility] Blood lymphocytes/100 leukoc ytesOrdered By: Dr. Au on 09-29-2022 Lymphocytes/100 WBC (Bld) 20.2 % 19-[address] [facility] Blood monocytes/100 leukocyt esOrdered By: Dr. Au on 09-29-2022 Monocytes/100 WBC (Bld) 5.9 % 0-10 [facility] Blood platelet mean volumeOr dered By: Dr. Au on 09-29-2022 Platelet mean volume (Bld) [Entitic vol] 10.8 fL 6.2-12.[address] [facility] Determination of erythrocyte mean corpuscular volume (MCV)Ordered By: Dr. Au on 09-29-2022 MCV (RBC) [Entitic vol] 100.3 fL 80-94 [facility] Hematocrit Auto (Bld) [Volum e fraction]Ordered By: Dr. Au on 09-29-2022 Hematocrit (Bld) [Volume fraction] 34.3 % 40-[address] [facility] Iron measurement (mass/mass) Ordered By: Dr. Au on 09-29-2022 Iron (Unsp spec) [Mass/Mass] 58 ug/dL 65-[address] [facility] Laboratory - Chemistry and C hemistry - challengeOrdered By: Dr. Au on 09-29-2022 CO2 [Moles/Vol] 29.0 mmol/L 21.0-32.[address] [facility] Urea nitrogen/Creatinine [Mass ratio] 23.3 mg/mg 10-[address] [facility] Laboratory - Hematology and Cell countsOrdered By: Dr. Au on 09-29-2022 Erythrocyte distribution width (RBC) [Entitic vol] 53.1 fL 35.1-43.[address] [facility] Erythrocyte distribution width (RBC) [Ratio] 14.7 % 11.6-14.[address] [facility] Immature granulocytes/100 WBC (Bld) 0.500 % 0.0-0.[address] [facility] Comment on above: IG% - Immature Granu locytes (promyelocytes, myelocytes and metamyelocytes) > 1% indicates that a LEFT SHIFT is Present. MCH (RBC) [Entitic mass] 31.9 pg 27.0-32.[address] [facility] Nucleated RBC/100 WBC (Bld) [Ratio] 0 % 0-[address] [facility] MCHC Auto (RBC) [Mass/Vol]Or dered By: Dr. Au on 09-29-2022 MCHC (RBC) [Mass/Vol] 31.8 g/dL 32-36 [facility] No Panel InformationOrdered By: Dr. Au on 09-29-2022 Estimated GFR (MDRD) Amer 36 mL/min >[address] [facility] Comment on above: GFR Calc Estimated GFR (MDRD) Non-Af Amer 30 mL/min >[address] [facility] Comment on above: Non- GFR Calc Parathyroid Hormone (Intact) 113.6 pg/mL 18.4-80.[address] [facility] Total Iron Binding Capacity 220 ug/dL 250-[address] [facility] Platelets bldOrdered By: Dr. Au on 09-29-2022 Platelets (Bld) [#/Vol] 163 10*3/uL 150-[address] [facility] Serum or plasma albumin aubree urement (mass/volume)Ordered By: Dr. Au on 09-29-2022 Albumin [Mass/Vol] 3.0 g/dL 3.2-5.0 [facility] Serum or plasma calcium aubree urement (mass/volume)Ordered By: Dr. Au on 09-29-2022 Calcium [Mass/Vol] 8.8 mg/dL 8.5-10.1 [facility] Serum or plasma creatinine m easurement (mass/volume)Ordered By: Dr. Au on 09-29-2022 Creatinine [Mass/Vol] 2.27 mg/dL 0.70-1.30 [facility] Comment on above: The validity of the calculated GFR & GFRAA in patients over 70 years has not been determined. Clinical correlation is essential. Serum or plasma ferritin laurie surement (mass/volume)Ordered By: Dr. Au on 09-29-2022 Ferritin [Mass/Vol] 185 ng/mL 26-388 [facility] Serum or plasma iron saturat ion measurement (mass fraction)Ordered By: Dr. Au on 09-29-2022 Iron saturation [Mass fraction] 26.4 % 15.0-55.[address] [facility] Serum or plasma urea nitroge n measurement (mass/volume)Ordered By: Dr. Au on 09-29-2022 Urea nitrogen [Mass/Vol] 53 mg/dL 7-[address] [facility] Serum or plasma uric acid me asurement (mass/volume)Ordered By: Dr. Au on 09-29-2022 Urate [Mass/Vol] 6.3 mg/dL 3.5-7.[address] [facility] Comment on above: The drugs N-Acetylcy steine and Metamizole may falsely depress this assay. Urine creatinine measurement (mass/volume)Ordered By: Dr. Au on 09-29-2022 Creatinine (U) [Mass/Vol] 54.30 mg/dL NO RANGE EST. [facility] Urine protein measurement (m ass/volume)Ordered By: Dr. Au on 09-29-2022 Protein (U) [Mass/Vol] 55.8 mg/dL 0.0-11.8 [facility] Urine protein/creatinine mas s ratioOrdered By: Dr. Au on 09-29-2022 Protein/Creatinine (U) [Mass ratio] 1028 mg/g CRE 0-[address] [facility] Absolute lymphocyte countOrd ered By: Dr. Au on 09-06-2022 Lymphocytes Auto (Unsp spec) [#/Vol] 1.88 10*3/uL 0.83-4.[address] [facility] Basophil percentageOrdered B y: Dr. Au on 09-06-2022 Basophil percentage 3.0 mg/dL 2.5-4.9 [facility] Basophils/100 WBC (Bld) 0.4 % 0-1 [facility] Chloride [Moles/Vol] 106 mmol/L 98-107 [facility] Eosinophils/100 WBC (Bld) 2.5 % 0-[address] [facility] Glucose [Mass/Vol] 104 mg/dL 74-106 [facility] Comment on above: Fasting Glucose resu lt from 100 to 125 mg/dL suggests IMPAIRED HOMEOSTASIS per A.D.A. criteria. Neutrophils (Bld) [#/Vol] 7.0 10*3/uL 2.0-7.[address] [facility] Neutrophils/100 WBC (Bld) 69.8 % 47-[address] [facility] Potassium [Moles/Vol] 3.9 mmol/L 3.5-5.1 [facility] Sodium [Moles/Vol] 141 mmol/L 136-145 [facility] WBC (Bld) [#/Vol] 10.0 10*3/uL 4.4-11.0 [facility] Blood erythrocytes count (nu mber/volume)Ordered By: Dr. Au on 09-06-2022 RBC (Bld) [#/Vol] 3.44 10*6/uL 4.6-6.2 [facility] Blood hemoglobin measurement (mass/volume)Ordered By: Dr. Au on 09-06-2022 Hemoglobin (Bld) [Mass/Vol] 10.6 g/dL 13.0-16.[address] [facility] Blood lymphocytes/100 leukoc ytesOrdered By: Dr. Au on 09-06-2022 Lymphocytes/100 WBC (Bld) 18.9 % 19-[address] [facility] Blood monocytes/100 leukocyt esOrdered By: Dr. Au on 09-06-2022 Monocytes/100 WBC (Bld) 7.9 % 0-10 [facility] Blood platelet mean volumeOr dered By: Dr. Au on 09-06-2022 Platelet mean volume (Bld) [Entitic vol] 10.5 fL 6.2-12.[address] [facility] Determination of erythrocyte mean corpuscular volume (MCV)Ordered By: Dr. Au on 09-06-2022 MCV (RBC) [Entitic vol] 98.5 fL 80-94 [facility] Hematocrit Auto (Bld) [Volum e fraction]Ordered By: Dr. Au on 09-06-2022 Hematocrit (Bld) [Volume fraction] 33.9 % 40-[address] [facility] Iron measurement (mass/mass) Ordered By: Dr. Au on 09-06-2022 Iron (Unsp spec) [Mass/Mass] 52 ug/dL 65-[address] [facility] Laboratory - Chemistry and C hemistry - challengeOrdered By: Dr. Au on 09-06-2022 CO2 [Moles/Vol] 30.0 mmol/L 21.0-32.[address] [facility] Urea nitrogen/Creatinine [Mass ratio] 21.3 mg/mg 10-[address] [facility] Laboratory - Hematology and Cell countsOrdered By: Dr. Au on 09-06-2022 Erythrocyte distribution width (RBC) [Entitic vol] 51.6 fL 35.1-43.[address] [facility] Erythrocyte distribution width (RBC) [Ratio] 14.4 % 11.6-14.[address] [facility] Immature granulocytes/100 WBC (Bld) 0.500 % 0.0-0.[address] [facility] Comment on above: IG% - Immature Granu locytes (promyelocytes, myelocytes and metamyelocytes) > 1% indicates that a LEFT SHIFT is Present. MCH (RBC) [Entitic mass] 30.8 pg 27.0-32.[address] [facility] Nucleated RBC/100 WBC (Bld) [Ratio] 0 % 0-[address] [facility] MCHC Auto (RBC) [Mass/Vol]Or dered By: Dr. Au on 09-06-2022 MCHC (RBC) [Mass/Vol] 31.3 g/dL 32-36 [facility] No Panel InformationOrdered By: Dr. Au on 09-06-2022 Estimated GFR (MDRD) Amer 32 mL/min >[address] [facility] Comment on above: GFR Calc Estimated GFR (MDRD) Non-Af Amer 26 mL/min >[address] [facility] Comment on above: Non- GFR Calc Parathyroid Hormone (Intact) 33.7 pg/mL 18.4-80.[address] [facility] Total Iron Binding Capacity 215 ug/dL 250-[address] [facility] Platelets bldOrdered By: Dr. Au on 09-06-2022 Platelets (Bld) [#/Vol] 155 10*3/uL 150-[address] [facility] Serum or plasma albumin aubree urement (mass/volume)Ordered By: Dr. Au on 09-06-2022 Albumin [Mass/Vol] 2.9 g/dL 3.2-5.0 [facility] Serum or plasma calcium aubree urement (mass/volume)Ordered By: Dr. Au on 09-06-2022 Calcium [Mass/Vol] 9.2 mg/dL 8.5-10.1 [facility] Serum or plasma creatinine m easurement (mass/volume)Ordered By: Dr. Au on 09-06-2022 Creatinine [Mass/Vol] 2.53 mg/dL 0.70-1.30 [facility] Comment on above: The validity of the calculated GFR & GFRAA in patients over 70 years has not been determined. Clinical correlation is essential. Serum or plasma ferritin laurie surement (mass/volume)Ordered By: Dr. Au on 09-06-2022 Ferritin [Mass/Vol] 172 ng/mL 26-388 [facility] Serum or plasma iron saturat ion measurement (mass fraction)Ordered By: Dr. Au on 09-06-2022 Iron saturation [Mass fraction] 24.2 % 15.0-55.[address] [facility] Serum or plasma urea nitroge n measurement (mass/volume)Ordered By: Dr. Au on 09-06-2022 Urea nitrogen [Mass/Vol] 54 mg/dL 7-[address] [facility] Basophil percentageOrdered B y: Dr. Espino on 08-27-2022 Bilirubin [Mass/Vol] 0.90 mg/dL 0.20-1.00 [facility] Comment on above: For patients on eltr ombopag therapy, use of Dimension [place] TBIL is not recommended. Chloride [Moles/Vol] 103 mmol/L 98-107 [facility] Glucose [Mass/Vol] 114 mg/dL 74-106 [facility] Comment on above: Fasting Glucose resu lt from 100 to 125 mg/dL suggests IMPAIRED HOMEOSTASIS per A.D.A. criteria. Potassium [Moles/Vol] 4.1 mmol/L 3.5-5.1 [facility] Protein [Mass/Vol] 8.0 g/dL 6.4-8.2 [facility] Sodium [Moles/Vol] 141 mmol/L 136-145 [facility] WBC (Bld) [#/Vol] 9.5 10*3/uL 4.4-11.0 [facility] Blood erythrocytes count (nu mber/volume)Ordered By: Dr. Espino on 08-27-2022 RBC (Bld) [#/Vol] 3.64 10*6/uL 4.6-6.2 [facility] Blood hemoglobin measurement (mass/volume)Ordered By: Dr. Espino on 08-27-2022 Hemoglobin (Bld) [Mass/Vol] 11.3 g/dL 13.0-16.[address] [facility] Blood platelet mean volumeOr dered By: Dr. Espino on 08-27-2022 Platelet mean volume (Bld) [Entitic vol] 10.9 fL 6.2-12.[address] [facility] Determination of erythrocyte mean corpuscular volume (MCV)Ordered By: Dr. Espino on 08-27-2022 MCV (RBC) [Entitic vol] 99.5 fL 80-94 [facility] Hematocrit Auto (Bld) [Volum e fraction]Ordered By: Dr. Espino on 08-27-2022 Hematocrit (Bld) [Volume fraction] 36.2 % 40-[address] [facility] Laboratory - Chemistry and C hemistry - challengeOrdered By: Dr. Espino on 08-27-2022 ALP [Catalytic activity/Vol] 127 U/L 45-[address] [facility] ALT [Catalytic activity/Vol] 19 U/L 16-[address] [facility] CO2 [Moles/Vol] 32.0 mmol/L 21.0-32.[address] [facility] Globulin (S) [Mass/Vol] 5.0 g/dL 2.2-4.2 [facility] Urea nitrogen/Creatinine [Mass ratio] 17.8 mg/mg 10-[address] [facility] Laboratory - Hematology and Cell countsOrdered By: Dr. Espino on 08-27-2022 Erythrocyte distribution width (RBC) [Entitic vol] 51.9 fL 35.1-43.[address] [facility] Erythrocyte distribution width (RBC) [Ratio] 14.4 % 11.6-14.[address] [facility] MCH (RBC) [Entitic mass] 31.0 pg 27.0-32.[address] [facility] MCHC Auto (RBC) [Mass/Vol]Or dered By: Dr. Espino on 08-27-2022 MCHC (RBC) [Mass/Vol] 31.2 g/dL 32-36 [facility] No Panel InformationOrdered By: Dr. Espino on 08-27-2022 Estimated GFR (MDRD) Amer 29 mL/min >[address] [facility] Comment on above: GFR Calc Estimated GFR (MDRD) Non-Af Amer 24 mL/min >[address] [facility] Comment on above: Non- GFR Calc Platelets bldOrdered By: Dr. Espino on 08-27-2022 Platelets (Bld) [#/Vol] 147 10*3/uL 150-[address] [facility] Serum or plasma albumin aubree urement (mass/volume)Ordered By: Dr. Espino on 08-27-2022 Albumin [Mass/Vol] 3.0 g/dL 3.2-5.0 [facility] Serum or plasma albumin/glob ulin mass ratioOrdered By: Dr. Espino on 08-27-2022 Albumin/Globulin [Mass ratio] 0.6 {ratio} 0.9-2.[address] [facility] Serum or plasma calcium aubree urement (mass/volume)Ordered By: Dr. Espino on 09-30-2022 Calcium [Mass/Vol] 9.5 mg/dL 8.5-10.1 [facility] Serum or plasma creatinine m easurement (mass/volume)Ordered By: Dr. Espino on 08-27-2022 Creatinine [Mass/Vol] 2.69 mg/dL 0.70-1.30 [facility] Comment on above: The validity of the calculated GFR & GFRAA in patients over 70 years has not been determined. Clinical correlation is essential. Serum or plasma urea nitroge n measurement (mass/volume)Ordered By: Dr. Espino on 08-27-2022 Urea nitrogen [Mass/Vol] 48 mg/dL 7-[address] [facility] Thin prep Papanicolaou smear with manual screeningOrdered By: Dr. Espino on 08-27-2022 Thin prep Papanicolaou smear with manual screening 20 U/L 15-[address] [facility] Thin prep Papanicolaou smear with manual screening 6 5-[address] [facility] Whole blood hemoglobin A1c/t otal hemoglobin ratio (mass fraction)Ordered By: Dr. Espino on 08-27-2022 HbA1c (Bld) [Mass fraction] 6.3 % 3.8-5.[address] [facility] Comment on above: Normal < 5.7 % Predi abetic 5.7 - 6.4 % Diabetic >or= 6.5 % Please note range changes. Absolute lymphocyte counton 08-09-2022 Lymphocytes Auto (Unsp spec) [#/Vol] 2.02 10*3/uL 0.83-4.[address] [facility] Work Phone: Basophil percentageon 2021 Basophil percentage 3.8 mg/dL 2.5-4.9 [facility] Work Phone: Basophils/100 WBC (Bld) 0.2 % 0-1 [facility] Work Phone: Chloride [Moles/Vol] 106 mmol/L 98-107 [facility] Work Phone: Eosinophils/100 WBC (Bld) 3.5 % 0-[address] [facility] Work Phone: Glucose [Mass/Vol] 114 mg/dL 74-106 [facility] Work Phone: Comment on above: Fasting Glucose resu lt from 100 to 125 mg/dL suggests IMPAIRED HOMEOSTASIS per A.D.A. criteria. Neutrophils (Bld) [#/Vol] 6.9 10*3/uL 2.0-7.[address] [facility] Work Phone: Neutrophils/100 WBC (Bld) 68.8 % 47-[address] [facility] Work Phone: [phone] Potassium [Moles/Vol] 4.3 mmol/L 3.5-5.1 [facility] Work [facility]: Sodium [Moles/Vol] 141 mmol/L 136-145 [facility] Work Phone: WBC (Bld) [#/Vol] 10.0 10*3/uL 4.4-11.0 [facility] Work Phone: Blood erythrocytes count (nu mber/volume)on 08-09-2022 RBC (Bld) [#/Vol] 3.45 10*6/uL 4.6-6.2 [facility] Work Phone: Blood hemoglobin measurement (mass/volume)on 08-09-2022 Hemoglobin (Bld) [Mass/Vol] 11.2 g/dL 13.0-16.[address] [facility] Work Phone: Blood lymphocytes/100 leukoc yteson 08-09-2022 Lymphocytes/100 WBC (Bld) 20.2 % 19-[address] [facility] Work Phone: [phone] Blood monocytes/100 leukocyt eson 08-09-2022 Monocytes/100 WBC (Bld) 6.9 % 0-10 [facility] Work Phone: Blood platelet mean volumeon 08-09-2022 Platelet mean volume (Bld) [Entitic vol] 10.0 fL 6.2-12.[address] [facility] Work Phone: Determination of erythrocyte mean corpuscular volume (MCV)on 08-09-2022 MCV (RBC) [Entitic vol] 98.6 fL 80-94 [facility] Work Phone: [phone] Hematocrit Auto (Bld) [Volum e fraction]on 08-09-2022 Hematocrit (Bld) [Volume fraction] 34.0 % 40-[address] [facility] Work Phone: [phone] Iron measurement (mass/mass) on 08-09-2022 Iron (Unsp spec) [Mass/Mass] 74 ug/dL 65-[address] [facility] Work Phone: [phone] Laboratory - Chemistry and C hemistry - challengeon 08-09-2022 CO2 [Moles/Vol] 29.0 mmol/L 21.0-32.[address] [facility] Work Phone: [phone] Urea nitrogen/Creatinine [Mass ratio] 24.0 mg/mg 10-[address] [facility] Work Phone: [phone] Laboratory - Hematology and Cell countson 08-09-2022 Erythrocyte distribution width (RBC) [Entitic vol] 52.4 fL 35.1-43.[address] [facility] Work Phone: [phone] Erythrocyte distribution width (RBC) [Ratio] 14.6 % 11.6-14.[address] [facility] Work Phone: [phone] Immature granulocytes/100 WBC (Bld) 0.400 % 0.0-0.[address] [facility] Work Phone: [phone] Comment on above: IG% - Immature Granu locytes (promyelocytes, myelocytes and metamyelocytes) > 1% indicates that a LEFT SHIFT is Present. MCH (RBC) [Entitic mass] 32.5 pg 27.0-32.[address] [facility] Work Phone: [phone] Nucleated RBC/100 WBC (Bld) [Ratio] 0 % 0-[address] [facility] Work Phone: [phone] MCHC Auto (RBC) [Mass/Vol]on 08-09-2022 MCHC (RBC) [Mass/Vol] 32.9 g/dL 32-36 [facility] Work Phone: [phone] Panel Informationon 08-09 Estimated GFR (MDRD) Amer 27 mL/min >[address] [facility] Work Phone: Comment on above: GFR Calc Estimated GFR (MDRD) Non-Af Amer 23 mL/min >[address] [facility] Work Phone: Comment on above: Non- GFR Calc Total Iron Binding Capacity 217 ug/dL 250-[address] [facility] Work Phone: Platelets bldon 08-09-2022 Platelets (Bld) [#/Vol] 147 10*3/uL 150-[address] [facility] Work Phone: Serum or plasma albumin aubree urement (mass/volume)on 08-09-2022 Albumin [Mass/Vol] 3.1 g/dL 3.2-5.0 [facility] Work Phone: Serum or plasma calcium aubree urement (mass/volume)on 08-09-2022 Calcium [Mass/Vol] 10.8 mg/dL 8.5-10.1 [facility] Work Phone: Serum or plasma creatinine m easurement (mass/volume)on 08-09-2022 Creatinine [Mass/Vol] 2.87 mg/dL 0.70-1.30 [facility] Work Phone: Comment on above: The validity of the calculated GFR & GFRAA in patients over 70 years has not been determined. Clinical correlation is essential. Serum or plasma ferritin laurie surement (mass/volume)on 08-09-2022 Ferritin [Mass/Vol] 194 ng/mL 26-388 [facility] Work Phone: Serum or plasma iron saturat ion measurement (mass fraction)on 08-09-2022 Iron saturation [Mass fraction] 34.1 % 15.0-55.[address] [facility] Work Phone: Serum or plasma urea nitroge n measurement (mass/volume)on 08-09-2022 Urea nitrogen [Mass/Vol] 69 mg/dL 7-[address] [facility] Work Phone: INR in Blood by Coagulation assayon 07-16-2022 INR Coag (Bld) [Relative time] 1.7 {INR} [facility] Work Phone: Laboratory - Coagulationon 0 07-16-2022 PT Coag (PPP) [Time] 19.5 s 11.7-14.9 [facility] Work Phone: Absolute lymphocyte counton 07-12-2022 Lymphocytes Auto (Unsp spec) [#/Vol] 1.55 10*3/uL 0.83-4.[address] [facility] Work Phone: Basophil percentageon 2021 Basophil percentage 2.9 mg/dL 2.5-4.9 [facility] Work Phone: Basophils/100 WBC (Bld) 0.4 % 0-1 [facility] Work Phone: Chloride [Moles/Vol] 107 mmol/L 98-107 [facility] Work Phone: Eosinophils/100 WBC (Bld) 2.8 % 0-[address] [facility] Work Phone: Glucose [Mass/Vol] 182 mg/dL 74-106 [facility] Work Phone: Comment on above: Fasting Glucose resu lt greater than or equal to 126 mg/dL suggests DIABETES MELLITUS per A.D.A. criteria. Neutrophils (Bld) [#/Vol] 6.0 10*3/uL 2.0-7.[address] [facility] Work Phone: Neutrophils/100 WBC (Bld) 70.9 % 47-[address] [facility] Work Phone: Potassium [Moles/Vol] 4.2 mmol/L 3.5-5.1 [facility] Work Phone: Sodium [Moles/Vol] 139 mmol/L 136-145 [facility] Work Phone: WBC (Bld) [#/Vol] 8.5 10*3/uL 4.4-11.0 [facility] Work Phone: Blood erythrocytes count (nu mber/volume)on 07-12-2022 RBC (Bld) [#/Vol] 3.25 10*6/uL 4.6-6.2 [facility] Work Phone: Blood hemoglobin measurement (mass/volume)on 07-12-2022 Hemoglobin (Bld) [Mass/Vol] 10.3 g/dL 13.0-16.[address] [facility] Work Phone: Blood lymphocytes/100 leukoc yteson 07-12-2022 Lymphocytes/100 WBC (Bld) 18.2 % 19-[address] [facility] Work Phone: [phone] Blood monocytes/100 leukocyt eson 07-12-2022 Monocytes/100 WBC (Bld) 6.9 % 0-10 [facility] Work Phone: [phone] Blood platelet mean volumeon 07-12-2022 Platelet mean volume (Bld) [Entitic vol] 10.7 fL 6.2-12.[address] [facility] Work Phone: Determination of erythrocyte mean corpuscular volume (MCV)on 07-12-2022 MCV (RBC) [Entitic vol] 97.2 fL 80-94 [facility] Work Phone: [phone] Hematocrit Auto (Bld) [Volum e fraction]on 07-12-2022 Hematocrit (Bld) [Volume fraction] 31.6 % 40-[address] [facility] Work Phone: [phone] Iron measurement (mass/mass) on 07-12-2022 Iron (Unsp spec) [Mass/Mass] 66 ug/dL 65-[address] [facility] Work Phone: [phone] Laboratory - Chemistry and C hemistry - challengeon 07-12-2022 CO2 [Moles/Vol] 27.0 mmol/L 21.0-32.[address] [facility] Work Phone: [phone] Urea nitrogen/Creatinine [Mass ratio] 24.0 mg/mg 10-[address] [facility] Work Phone: [phone] Laboratory - Hematology and Cell countson 07-12-2022 Erythrocyte distribution width (RBC) [Entitic vol] 50.8 fL 35.1-43.[address] [facility] Work Phone: [phone] Erythrocyte distribution width (RBC) [Ratio] 14.6 % 11.6-14.[address] [facility] Work Phone: [phone] Immature granulocytes/100 WBC (Bld) 0.800 % 0.0-0.[address] [facility] Work Phone: [phone] Comment on above: IG% - Immature Granu locytes (promyelocytes, myelocytes and metamyelocytes) > 1% indicates that a LEFT SHIFT is Present. MCH (RBC) [Entitic mass] 31.7 pg 27.0-32.[address] [facility] Work Phone: [phone] Nucleated RBC/100 WBC (Bld) [Ratio] 0 % 0-[address] [facility] Work Phone: [phone] MCHC Auto (RBC) [Mass/Vol]on 07-12-2022 MCHC (RBC) [Mass/Vol] 32.6 g/dL 32-36 [facility] Work Phone: [phone] No Panel Informationon 07-12 Estimated GFR (MDRD) Amer 30 mL/min >[address] [facility] Work Phone: [phone] Comment on above: GFR Calc Estimated GFR (MDRD) Non-Af Amer 25 mL/min >[address] [facility] Work Phone: [phone] Comment on above: Non- GFR Calc Total Iron Binding Capacity 228 ug/dL 250-[address] [facility] Work Phone: [phone] Platelets bldon 07-12-2022 Platelets (Bld) [#/Vol] 154 10*3/uL 150-[address] [facility] Work Phone: [phone] Serum or plasma albumin aubree urement (mass/volume)on 07-12-2022 Albumin [Mass/Vol] 2.8 g/dL 3.2-5.0 [facility] Work Phone: [phone] Serum or plasma calcium aubree urement (mass/volume)on 07-12-2022 Calcium [Mass/Vol] 9.2 mg/dL 8.5-10.1 [facility] Work Phone: [phone] Serum or plasma creatinine m easurement (mass/volume)on 07-12-2022 Creatinine [Mass/Vol] 2.63 mg/dL 0.70-1.30 [facility] Work Phone: Comment on above: The validity of the calculated GFR & GFRAA in patients over 70 years has not been determined. Clinical correlation is essential. Serum or plasma ferritin laurie surement (mass/volume)on 07-12-2022 Ferritin [Mass/Vol] 227 ng/mL 26-388 [facility] Work Phone: [phone] Serum or plasma iron saturat ion measurement (mass fraction)on 07-12-2022 Iron saturation [Mass fraction] 28.9 % 15.0-55.[address] [facility] Work Phone: [phone] Serum or plasma urea nitroge n measurement (mass/volume)on 07-12-2022 Urea nitrogen [Mass/Vol] 63 mg/dL 7-[address] [facility] Work Phone: [phone] Basophil percentageon 2021 Bilirubin [Mass/Vol] 0.90 mg/dL 0.20-1.00 [facility] Work Phone: [phone] Comment on above: For patients on eltr ombopag therapy, use of Dimension [place] TBIL is not recommended. Chloride [Moles/Vol] 104 mmol/L 98-107 [facility] Work Phone: [phone] Glucose [Mass/Vol] 147 mg/dL 74-106 [facility] Work Phone: [phone] Comment on above: Fasting Glucose resu lt greater than or equal to 126 mg/dL suggests DIABETES MELLITUS per A.D.A. criteria. Potassium [Moles/Vol] 4.6 mmol/L 3.5-5.1 [facility] Work Phone: [phone] Protein [Mass/Vol] 8.2 g/dL 6.4-8.2 [facility] Work Phone: [phone] Sodium [Moles/Vol] 137 mmol/L 136-145 [facility] Work Phone: [phone] WBC (Bld) [#/Vol] 9.1 10*3/uL 4.4-11.0 [facility] Work Phone: Blood erythrocytes count (nu mber/volume)on 07-09-2022 RBC (Bld) [#/Vol] 3.47 10*6/uL 4.6-6.2 [facility]: Blood hemoglobin measurement (mass/volume)on 07-09-2022 Hemoglobin (Bld) [Mass/Vol] 10.8 g/dL 13.0-16.[address] [facility] Work Phone: Blood platelet mean volumeon 07-09-2022 Platelet mean volume (Bld) [Entitic vol] 11.0 fL 6.2-12.[address] [facility] Work Phone: Determination of erythrocyte mean corpuscular volume (MCV)on 07-09-2022 MCV (RBC) [Entitic vol] 98.8 fL 80-94 [facility] Work Phone: Hematocrit Auto (Bld) [Volum e fraction]on 07-09-2022 Hematocrit (Bld) [Volume fraction] 34.3 % 40-[address] [facility] Work Phone: INR in Blood by Coagulation assayon 07-09-2022 INR Coag (Bld) [Relative time] 2.7 {INR} [facility] Work Phone: Laboratory - Chemistry and C hemistry - challengeon 07-09-2022 ALP [Catalytic activity/Vol] 145 U/L 45-[address] [facility] Work Phone: [phone] ALT [Catalytic activity/Vol] 19 U/L 16-[address] [facility] Work Phone: [phone] CO2 [Moles/Vol] 29.0 mmol/L 21.0-32.[address] [facility] Work Phone: [phone] Globulin (S) [Mass/Vol] 5.2 g/dL 2.2-4.2 [facility] Work Phone: Natriuretic peptide B (Bld) [Mass/Vol] 265.9 pg/mL 0-[address] [facility] Work Phone: Urea nitrogen/Creatinine [Mass ratio] 26.0 mg/mg 10-[address] [facility] Work Phone: Laboratory - Coagulationon 0 07-09-2022 PT Coag (PPP) [Time] 28.2 s 11.7-14.9 [facility] Work Phone: Laboratory - Hematology and Cell countson 07-09-2022 Erythrocyte distribution width (RBC) [Entitic vol] 51.2 fL 35.1-43.[address] [facility] Work Phone: Erythrocyte distribution width (RBC) [Ratio] 14.2 % 11.6-14.[address] [facility] Work Phone: MCH (RBC) [Entitic mass] 31.1 pg 27.0-32.[address] [facility] Work Phone: MCHC Auto (RBC) [Mass/Vol]on 07-09-2022 MCHC (RBC) [Mass/Vol] 31.5 g/dL 32-36 [facility] Work Phone: No Panel Informationon 07-09 Estimated GFR (MDRD) Amer 32 mL/min >[address] [facility] Work Phone: Comment on above: GFR Calc Estimated GFR (MDRD) Non-Af Amer 27 mL/min >[address] [facility] Work Phone: Comment on above: Non- GFR Calc Platelets bldon 07-09-2022 Platelets (Bld) [#/Vol] 148 10*3/uL 150-[address] [facility] Work Phone: Serum or plasma albumin aubree urement (mass/volume)on 07-09-2022 Albumin [Mass/Vol] 3.0 g/dL 3.2-5.0 [facility] Work Phone: Serum or plasma albumin/glob ulin mass ratioon 07-09-2022 Albumin/Globulin [Mass ratio] 0.6 {ratio} 0.9-2.[address] [facility] Work Phone: Serum or plasma calcium aubree urement (mass/volume)on 07-09-2022 Calcium [Mass/Vol] 9.0 mg/dL 8.5-10.1 [facility] Work Phone: Serum or plasma creatinine m easurement (mass/volume)on 07-09-2022 Creatinine [Mass/Vol] 2.50 mg/dL 0.70-1.30 [facility] Work Phone: Comment on above: The validity of the calculated GFR & GFRAA in patients over 70 years has not been determined. Clinical correlation is essential. Serum or plasma urea nitroge n measurement (mass/volume)on 07-09-2022 Urea nitrogen [Mass/Vol] 65 mg/dL 7-[address] [facility] Work Phone: Thin prep Papanicolaou smear with manual screeningon 07-09-2022 Thin prep Papanicolaou smear with manual screening 24 U/L 15-[address] [facility] Work Phone: Thin prep Papanicolaou smear with manual screening 4 5-[address] [facility] Work Phone: Basophil percentageon 2021 Bilirubin [Mass/Vol] 0.60 mg/dL 0.20-1.00 [facility] Work Phone: Comment on above: For patients on eltr ombopag therapy, use of Dimension [place] TBIL is not recommended. Chloride [Moles/Vol] 105 mmol/L 98-107 [facility] Work Phone: Cholesterol [Mass/Vol] 92 mg/dL <200 [facility] Work Phone: Comment on above: <200 mg/dL Desirable 200-240 mg/dL Borderline >240 mg/dL High Risk Glucose [Mass/Vol] 114 mg/dL 74-106 [facility] Work Phone: Comment on above: Fasting Glucose resu lt from 100 to 125 mg/dL suggests IMPAIRED HOMEOSTASIS per A.D.A. criteria. Potassium [Moles/Vol] 4.5 mmol/L 3.5-5.1 [facility] Work Phone: Protein [Mass/Vol] 8.0 g/dL 6.4-8.2 [facility] Work Phone: Sodium [Moles/Vol] 139 mmol/L 136-145 [facility] Work Phone: Triglyceride [Mass/Vol] 114 mg/dL <199 [facility] Work Phone: Comment on above: The drugs N-Acetylcy steine and Metamizole may falsely depress this assay.Serum Triglycerides Reference Interval Normal <150 mg/dL Borderline high 150 - 199 mg/dL High 200 - 499 mg/dL Very High > or = 500 mg/dL INR in Blood by Coagulation assayon 06-18-2022 INR Coag (Bld) [Relative time] 2.8 {INR} [facility] Work Phone: Laboratory - Chemistry and C hemistry - challengeon 06-18-2022 ALP [Catalytic activity/Vol] 132 U/L 45-[address] [facility] Work Phone: ALT [Catalytic activity/Vol] 19 U/L 16-[address] [facility] Work Phone: CO2 [Moles/Vol] 30.0 mmol/L 21.0-32.[address] [facility] Work Phone: Free T4 [Mass/Vol] 0.80 ng/dL 0.76-1.46 [facility] Work Phone: Globulin (S) [Mass/Vol] 5.0 g/dL 2.2-4.2 [facility] Work Phone: Urea nitrogen/Creatinine [Mass ratio] 19.9 mg/mg 10-[address] [facility] Work Phone: Laboratory - Coagulationon 0 06-18-2022 PT Coag (PPP) [Time] 29.3 s 11.7-14.9 [facility] Work Phone: No Panel Informationon 06-18 Estimated GFR (MDRD) Amer 29 mL/min >[address] [facility] Work Phone: Comment on above: GFR Calc Estimated GFR (MDRD) Non-Af Amer 24 mL/min >[address] [facility] Work Phone: Comment on above: Non- GFR Calc Hepatitis C Antibody Non-Reactive Nonreactive [facility] Work Phone: Comment on above: Non Reactive: < 0.8 Equivocal: >/= 0.8 to < 1.0 Reactive: >/= 1.0The [facility] recommends that a reactive/equivocal HCV antibody result be followed up by the HCV Nucleic Acid Amplificationtest (743302) Thyroid Stimulating Hormone (TSH) 5.65 uIU/mL 0.358-3.[address] [facility] Work Phone: Urine Microalbumin/Creatinine Ratio 173.8 mg/g CRE <[address] [facility] Work Phone: Vitamin D 25-Hydroxy 48.5 ng/mL [facility] Work Phone: Comment on above: Vitamin D 25(OH) Sta tus Range Deficiency <20 ng/mL (50nmol/L) Insufficiency 20 - 30 ng/mL (50 - 75 nmol/L) Sufficiency 30 - 100 ng/mL (75 - 250 nmol/L) Toxicity >100 ng/mL (>250 nmol/L) Serum or plasma albumin aubree urement (mass/volume)on 06-18-2022 Albumin [Mass/Vol] 3.0 g/dL 3.2-5.0 [facility] Work Phone: [phone] Serum or plasma albumin/glob ulin mass ratioon 06-18-2022 Albumin/Globulin [Mass ratio] 0.6 {ratio} 0.9-2.[address] [facility] Work Phone: [phone] Serum or plasma calcium aubree urement (mass/volume)on 06-18-2022 Calcium [Mass/Vol] 9.3 mg/dL 8.5-10.1 [facility] Work Phone: [phone] Serum or plasma cholesterol in HDL measurement (mass/volume)on 06-18-2022 Cholesterol in HDL [Mass/Vol] 31 mg/dL >[address] [facility] Work Phone: Comment on above: The drugs N-Acetylcy steine and Metamizole may falsely depress this assay. Reference Range HDL <40 mg/dL Low HDL Cholesterol HDL >or= 60 mg/dL High HDL Cholesterol Serum or plasma cholesterol in VLDL measurement (mass/volume)on 06-18-2022 Cholesterol in VLDL [Mass/Vol] 23 mg/dL 5-[address] [facility] Work Phone: [phone] Serum or plasma creatinine m easurement (mass/volume)on 06-18-2022 Creatinine [Mass/Vol] 2.76 mg/dL 0.70-1.30 [facility] Work Phone: Comment on above: The validity of the calculated GFR & GFRAA in patients over 70 years has not been determined. Clinical correlation is essential. Serum or plasma low density lipoprotein (LDL) cholesterol measurement (mass/volume)on 06-18-2022 Cholesterol in LDL [Mass/Vol] 38 mg/dL 0-[address] [facility] Work Phone: [phone] Serum or plasma urea nitroge n measurement (mass/volume)on 06-18-2022 Urea nitrogen [Mass/Vol] 55 mg/dL 7-[address] [facility] Work Phone: Thin prep Papanicolaou smear with manual screeningon 06-18-2022 Thin prep Papanicolaou smear with manual screening 19 U/L 15-[address] [facility] Work Phone: [phone] Thin prep Papanicolaou smear with manual screening 4 5-[address] [facility] Work Phone: [phone] Thin prep Papanicolaou smear with manual screening 285.0 mg/L NO RANGE EST. [facility] Work Phone: [phone] Urine creatinine measurement (mass/volume)on 06-18-2022 Creatinine (U) [Mass/Vol] 164.00 mg/dL NO RANGE EST. [facility] Work Phone: Absolute lymphocyte counton 06-14-2022 Lymphocytes Auto (Unsp spec) [#/Vol] 1.51 10*3/uL 0.83-4.[address] [facility] Work Phone: Basophil percentageon 2021 Basophil percentage 2.6 mg/dL 2.5-4.9 [facility] Work [facility]: Basophils/100 WBC (Bld) 0.3 % 0-1 [facility] Work Phone: Chloride [Moles/Vol] 104 mmol/L 98-107 [facility]: Eosinophils/100 WBC (Bld) 2.6 % 0-[address] [facility] Work Phone: Glucose [Mass/Vol] 195 mg/dL 74-106 [facility] Work Phone: Comment on above: Fasting Glucose resu lt greater than or equal to 126 mg/dL suggests DIABETES MELLITUS per A.D.A. criteria. Neutrophils (Bld) [#/Vol] 6.3 10*3/uL 2.0-7.[address] [facility] Work Phone: Neutrophils/100 WBC (Bld) 72.7 % 47-[address] [facility] Work Phone: Potassium [Moles/Vol] 4.2 mmol/L 3.5-5.1 [facility]: Sodium [Moles/Vol] 141 mmol/L 136-145 [facility] Work Phone: WBC (Bld) [#/Vol] 8.7 10*3/uL 4.4-11.0 [facility] Work Phone: Blood erythrocytes count (nu mber/volume)on 06-14-2022 RBC (Bld) [#/Vol] 3.50 10*6/uL 4.6-6.2 [facility] Work Phone: Blood hemoglobin measurement (mass/volume)on 06-14-2022 Hemoglobin (Bld) [Mass/Vol] 10.9 g/dL 13.0-16.[address] [facility] Work Phone: Blood lymphocytes/100 leukoc yteson 06-14-2022 Lymphocytes/100 WBC (Bld) 17.4 % 19-[address] [facility] Work Phone: Blood monocytes/100 leukocyt eson 06-14-2022 Monocytes/100 WBC (Bld) 6.4 % 0-10 [facility] Work Phone: Blood platelet mean volumeon 06-14-2022 Platelet mean volume (Bld) [Entitic vol] 10.3 fL 6.2-12.[address] [facility] Work Phone: Determination of erythrocyte mean corpuscular volume (MCV)on 06-14-2022 MCV (RBC) [Entitic vol] 100.0 fL 80-94 [facility] Work Phone: Hematocrit Auto (Bld) [Volum e fraction]on 06-14-2022 Hematocrit (Bld) [Volume fraction] 35.0 % 40-[address] [facility] Work Phone: Iron measurement (mass/mass) on 06-14-2022 Iron (Unsp spec) [Mass/Mass] 62 ug/dL 65-[address] [facility] Work Phone: Laboratory - Chemistry and C hemistry - challengeon 06-14-2022 CO2 [Moles/Vol] 31.0 mmol/L 21.0-32.[address] [facility] Work Phone: Urea nitrogen/Creatinine [Mass ratio] 22.4 mg/mg 10-[address] [facility] Work Phone: Laboratory - Hematology and Cell countson 06-14-2022 Erythrocyte distribution width (RBC) [Entitic vol] 50.7 fL 35.1-43.[address] [facility] Work Phone: [phone] Erythrocyte distribution width (RBC) [Ratio] 14.1 % 11.6-14.[address] [facility] Work Phone: Immature granulocytes/100 WBC (Bld) 0.600 % 0.0-0.[address] [facility] Work Phone: Comment on above: IG% - Immature Granu locytes (promyelocytes, myelocytes and metamyelocytes) > 1% indicates that a LEFT SHIFT is Present. MCH (RBC) [Entitic mass] 31.1 pg 27.0-32.[address] [facility] Work Phone: Nucleated RBC/100 WBC (Bld) [Ratio] 0 % 0-[address] [facility] Work Phone: [phone] MCHC Auto (RBC) [Mass/Vol]on 06-14-2022 MCHC (RBC) [Mass/Vol] 31.1 g/dL 32-36 [facility] Work Phone: No Panel Informationon 06-14 Estimated Creatinine Clearance Calc 19.46 ml/min [facility] Work Phone: [phone] Estimated GFR (MDRD) Amer 31 mL/min >[address] [facility] Work Phone: Comment on above: GFR Calc Estimated GFR (MDRD) Non-Af Amer 25 mL/min >[address] [facility] Work Phone: Comment on above: Non- GFR Calc Parathyroid Hormone (Intact) 39.9 pg/mL 18.4-80.[address] [facility] Work Phone: Total Iron Binding Capacity 252 ug/dL 250-[address] [facility] Work Phone: Platelets bldon 06-14-2022 Platelets (Bld) [#/Vol] 139 10*3/uL 150-[address] [facility] Work Phone: [phone] Serum or plasma albumin aubree urement (mass/volume)on 06-14-2022 Albumin [Mass/Vol] 3.0 g/dL 3.2-5.0 [facility] Work Phone: [phone] Serum or plasma calcium aubree urement (mass/volume)on 06-14-2022 Calcium [Mass/Vol] 9.2 mg/dL 8.5-10.1 [facility] Work Phone: [phone] Serum or plasma creatinine m easurement (mass/volume)on 06-14-2022 Creatinine [Mass/Vol] 2.59 mg/dL 0.70-1.30 [facility] Work Phone: Comment on above: The validity of the calculated GFR & GFRAA in patients over 70 years has not been determined. Clinical correlation is essential. Serum or plasma ferritin laurie surement (mass/volume)on 06-14-2022 Ferritin [Mass/Vol] 210 ng/mL 26-388 [facility] Work Phone: [phone] Serum or plasma iron saturat ion measurement (mass fraction)on 06-14-2022 Iron saturation [Mass fraction] 24.6 % 15.0-55.[address] [facility] Work Phone: [phone] Serum or plasma urea nitroge n measurement (mass/volume)on 06-14-2022 Urea nitrogen [Mass/Vol] 58 mg/dL 06-[address] [facility] Work Phone: Basophil percentageon 2021 Bilirubin [Mass/Vol] 0.80 mg/dL 0.20-1.00 [facility] Work Phone: [phone] Comment on above: For patients on eltr ombopag therapy, use of Dimension [place] TBIL is not recommended. Chloride [Moles/Vol] 103 mmol/L 98-107 [facility] Work Phone: [phone] Cholesterol [Mass/Vol] 104 mg/dL <200 [facility] Work Phone: [phone] Comment on above: <200 mg/dL Desirable 200-240 mg/dL Borderline >240 mg/dL High Risk Glucose [Mass/Vol] 115 mg/dL 74-106 [facility] Work Phone: [phone] Comment on above: Fasting Glucose resu lt from 100 to 125 mg/dL suggests IMPAIRED HOMEOSTASIS per A.D.A. criteria. Potassium [Moles/Vol] 4.2 mmol/L 3.5-5.1 [facility] Work Phone: [phone] Protein [Mass/Vol] 8.4 g/dL 6.4-8.2 [facility] Work Phone: [phone] Sodium [Moles/Vol] 140 mmol/L 136-145 [facility] Work Phone: [phone] Triglyceride [Mass/Vol] 86 mg/dL <199 [facility] Work Phone: [phone] Comment on above: The drugs N-Acetylcy steine and Metamizole may falsely depress this assay.Serum Triglycerides Reference Interval Normal <150 mg/dL Borderline high 150 - 199 mg/dL High 200 - 499 mg/dL Very High > or = 500 mg/dL WBC (Bld) [#/Vol] 12.5 10*3/uL 4.4-11.0 [facility] Work Phone: [phone] Blood erythrocytes count (nu mber/volume)on 05-18-2022 RBC (Bld) [#/Vol] 3.47 10*6/uL 4.6-6.2 [facility] Work Phone: [phone] Blood hemoglobin measurement (mass/volume)on 05-18-2022 Hemoglobin (Bld) [Mass/Vol] 11.0 g/dL 13.0-16.[address] [facility] Work Phone: [phone] Blood platelet mean volumeon 05-18-2022 Platelet mean volume (Bld) [Entitic vol] 10.7 fL 6.2-12.[address] [facility] Work Phone: [phone] Determination of erythrocyte mean corpuscular volume (MCV)on 05-18-2022 MCV (RBC) [Entitic vol] 99.7 fL 80-94 [facility] Work Phone: [phone] Hematocrit Auto (Bld) [Volum e fraction]on 05-18-2022 Hematocrit (Bld) [Volume fraction] 34.6 % 40-[address] [facility] Work Phone: [phone] Laboratory - Chemistry and C hemistry - challengeon 05-18-2022 ALP [Catalytic activity/Vol] 140 U/L 45-[address] [facility] Work Phone: [phone] ALT [Catalytic activity/Vol] 23 U/L 16-[address] [facility] Work Phone: [phone] CO2 [Moles/Vol] 29.0 mmol/L 21.0-32.[address] [facility] Work Phone: [phone] Globulin (S) [Mass/Vol] 5.5 g/dL 2.2-4.2 [facility] Work Phone: Urea nitrogen/Creatinine [Mass ratio] 23.7 mg/mg 10-[address] [facility] Work Phone: [phone] Laboratory - Hematology and Cell countson 05-18-2022 Erythrocyte distribution width (RBC) [Entitic vol] 51.8 fL 35.1-43.[address] [facility] Work Phone: Erythrocyte distribution width (RBC) [Ratio] 14.3 % 11.6-14.[address] [facility] Work Phone: MCH (RBC) [Entitic mass] 31.7 pg 27.0-32.[address] [facility] Work Phone: MCHC Auto (RBC) [Mass/Vol]on 05-18-2022 MCHC (RBC) [Mass/Vol] 31.8 g/dL 32-36 [facility] Work Phone: No Panel Informationon 05-18 Estimated GFR (MDRD) Amer 29 mL/min >[address] [facility] Work Phone: Comment on above: GFR Calc Estimated GFR (MDRD) Non-Af Amer 24 mL/min >[address] [facility] Work Phone: Comment on above: Non- GFR Calc Thyroid Stimulating Hormone (TSH) 5.11 uIU/mL 0.358-3.[address] [facility] Work Phone: Platelets bldon 05-18-2022 Platelets (Bld) [#/Vol] 169 10*3/uL 150-[address] [facility] Work Phone: Serum or plasma albumin aubree urement (mass/volume)on 05-18-2022 Albumin [Mass/Vol] 2.9 g/dL 3.2-5.0 [facility] Work Phone: Serum or plasma albumin/glob ulin mass ratioon 05-18-2022 Albumin/Globulin [Mass ratio] 0.5 {ratio} 0.9-2.[address] [facility] Work Phone: Serum or plasma calcium aubree urement (mass/volume)on 05-18-2022 Calcium [Mass/Vol] 9.5 mg/dL 8.5-10.1 [facility] Work Phone: Serum or plasma cholesterol in HDL measurement (mass/volume)on 05-18-2022 Cholesterol in HDL [Mass/Vol] 37 mg/dL >[address] [facility] Work Phone: Comment on above: The drugs N-Acetylcy steine and Metamizole may falsely depress this assay. Reference Range HDL <40 mg/dL Low HDL Cholesterol HDL >or= 60 mg/dL High HDL Cholesterol Serum or plasma cholesterol in VLDL measurement (mass/volume)on 05-18-2022 Cholesterol in VLDL [Mass/Vol] 17 mg/dL 5-[address] [facility] Work Phone: Serum or plasma creatinine m easurement (mass/volume)on 05-18-2022 Creatinine [Mass/Vol] 2.74 mg/dL 0.70-1.30 [facility] Work Phone: Comment on above: The validity of the calculated GFR & GFRAA in patients over 70 years has not been determined. Clinical correlation is essential. Serum or plasma low density lipoprotein (LDL) cholesterol measurement (mass/volume)on 05-18-2022 Cholesterol in LDL [Mass/Vol] 50 mg/dL 0-[address] [facility] Work Phone: Serum or plasma urea nitroge n measurement (mass/volume)on 05-18-2022 Urea nitrogen [Mass/Vol] 65 mg/dL 7-[address] [facility] Work Phone: [phone] Thin prep Papanicolaou smear with manual screeningon 05-18-2022 Thin prep Papanicolaou smear with manual screening 18 U/L 15-[address] [facility] Work Phone: Thin prep Papanicolaou smear with manual screening 8 5-[address] [facility] Work Phone: Whole blood hemoglobin A1c/t otal hemoglobin ratio (mass fraction)on 05-18-2022 HbA1c (Bld) [Mass fraction] 6.3 % 3.8-5.[address] [facility] Work Phone: Comment on above: Normal < 5.7 % Predi abetic 5.7 - 6.4 % Diabetic >or= 6.5 % Please note range changes. Absolute lymphocyte counton 05-17-2022 Lymphocytes Auto (Unsp spec) [#/Vol] 1.53 10*3/uL 0.83-4.[address] [facility] Work Phone: Basophil percentageon 2021 Basophil percentage 3.5 mg/dL 2.5-4.9 [facility] Work [facility]: Basophils/100 WBC (Bld) 0.3 % 0-1 [facility] Work Phone: Chloride [Moles/Vol] 104 mmol/L 98-107 [facility] Work Phone: Eosinophils/100 WBC (Bld) 1.8 % 0-[address] [facility] Work Phone: Glucose [Mass/Vol] 302 mg/dL 74-106 [facility] Work Phone: Comment on above: Glucose result great er than or equal to 200 mg/dLsuggests DIABETES MELLITUS per A.D.A. criteria. Neutrophils (Bld) [#/Vol] 12.1 10*3/uL 2.0-7.[address] [facility] Work Phone: Neutrophils/100 WBC (Bld) 81.8 % 47-[address] [facility] Work Phone: Potassium [Moles/Vol] 4.4 mmol/L 3.5-5.1 [facility] Work Phone: Sodium [Moles/Vol] 138 mmol/L 136-145 [facility] Work Phone: WBC (Bld) [#/Vol] 14.8 10*3/uL 4.4-11.0 [facility] Work Phone: Blood erythrocytes count (nu mber/volume)on 05-17-2022 RBC (Bld) [#/Vol] 3.49 10*6/uL 4.6-6.2 [facility] Work Phone: Blood hemoglobin measurement (mass/volume)on 05-17-2022 Hemoglobin (Bld) [Mass/Vol] 11.1 g/dL 13.0-16.[address] [facility] Work Phone: Blood lymphocytes/100 leukoc yteson 05-17-2022 Lymphocytes/100 WBC (Bld) 10.3 % 19-[address] [facility] Work Phone: [phone] Blood monocytes/100 leukocyt eson 05-17-2022 Monocytes/100 WBC (Bld) 5.1 % 0-10 [facility] Work Phone: Blood platelet mean volumeon 05-17-2022 Platelet mean volume (Bld) [Entitic vol] 10.1 fL 6.2-12.[address] [facility] Work Phone: Determination of erythrocyte mean corpuscular volume (MCV)on 05-17-2022 MCV (RBC) [Entitic vol] 99.7 fL 80-94 [facility] Work Phone: Hematocrit Auto (Bld) [Volum e fraction]on 05-17-2022 Hematocrit (Bld) [Volume fraction] 34.8 % 40-[address] [facility] Work Phone: Iron measurement (mass/mass) on 05-17-2022 Iron (Unsp spec) [Mass/Mass] 49 ug/dL 65-[address] [facility] Work Phone: Laboratory - Chemistry and C hemistry - challengeon 05-17-2022 CO2 [Moles/Vol] 30.0 mmol/L 21.0-32.[address] [facility] Work Phone: Urea nitrogen/Creatinine [Mass ratio] 23.1 mg/mg -[address] [facility] Work Phone: Laboratory - Hematology and Cell countson 05-17-2022 Erythrocyte distribution width (RBC) [Entitic vol] 51.1 fL 35.1-43.[address] [facility] Work Phone: [phone] Erythrocyte distribution width (RBC) [Ratio] 14.2 % 11.6-14.[address] [facility] Work Phone: [phone] Immature granulocytes/100 WBC (Bld) 0.700 % 0.0-0.[address] [facility] Work Phone: [phone] Comment on above: IG% - Immature Granu locytes (promyelocytes, myelocytes and metamyelocytes) > 1% indicates that a LEFT SHIFT is Present. MCH (RBC) [Entitic mass] 31.8 pg 27.0-32.[address] [facility] Work Phone: Nucleated RBC/100 WBC (Bld) [Ratio] 0 % 0-[address] [facility] Work Phone: MCHC Auto (RBC) [Mass/Vol]on 05-17-2022 MCHC (RBC) [Mass/Vol] 31.9 g/dL 32-36 [facility] Work Phone: [phone] Panel Informationon 05-17 Estimated GFR (MDRD) Amer 29 mL/min >[address] [facility] Work Phone: [phone] Comment on above: GFR Calc Estimated GFR (MDRD) Non-Af Amer 24 mL/min >[address] [facility] Work Phone: [phone] Comment on above: Non- GFR Calc Total Iron Binding Capacity 232 ug/dL 250-[address] [facility] Work Phone: [phone] Platelets bldon 05-17-2022 Platelets (Bld) [#/Vol] 156 10*3/uL 150-[address] [facility] Work Phone: [phone] Serum or plasma albumin aubree urement (mass/volume)on 05-17-2022 Albumin [Mass/Vol] 3.0 g/dL 3.2-5.0 [facility] Work Phone: [phone] Serum or plasma calcium aubree urement (mass/volume)on 05-17-2022 Calcium [Mass/Vol] 9.8 mg/dL 8.5-10.1 [facility] Work Phone: Serum or plasma creatinine m easurement (mass/volume)on 05-17-2022 Creatinine [Mass/Vol] 2.77 mg/dL 0.70-1.30 [facility] Work Phone: Comment on above: The validity of the calculated GFR & GFRAA in patients over 70 years has not been determined. Clinical correlation is essential. Serum or plasma ferritin laurie surement (mass/volume)on 05-17-2022 Ferritin [Mass/Vol] 307 ng/mL 26-388 [facility] Work Phone: [phone] Serum or plasma iron saturat ion measurement (mass fraction)on 05-17-2022 Iron saturation [Mass fraction] 21.1 % 15.0-55.[address] [facility] Work Phone: Serum or plasma urea nitroge n measurement (mass/volume)on 05-17-2022 Urea nitrogen [Mass/Vol] 64 mg/dL 7-[address] [facility] Work Phone: Absolute lymphocyte counton 04-12-2022 Lymphocytes Auto (Unsp spec) [#/Vol] 1.61 10*3/uL 0.83-4.[address] [facility] Work Phone: Basophil percentageon 2021 Basophil percentage 3.2 mg/dL 2.5-4.9 [facility] Work Phone: Basophils/100 WBC (Bld) 0.3 % 0-1 [facility] Work Phone: Chloride [Moles/Vol] 100 mmol/L 98-107 [facility] Work Phone: Eosinophils/100 WBC (Bld) 1.8 % 0-[address] [facility] Work Phone: Glucose [Mass/Vol] 166 mg/dL 74-106 [facility] Work Phone: Comment on above: Fasting Glucose resu lt greater than or equal to 126 mg/dL suggests DIABETES MELLITUS per A.D.A. criteria. Neutrophils (Bld) [#/Vol] 8.3 10*3/uL 2.0-7.[address] [facility] Work Phone: Neutrophils/100 WBC (Bld) 75.8 % 47-[address] [facility] Work Phone: Potassium [Moles/Vol] 4.5 mmol/L 3.5-5.1 [facility] Work Phone: Sodium [Moles/Vol] 137 mmol/L 136-145 [facility] Work [facility]: WBC (Bld) [#/Vol] 11.0 10*3/uL 4.4-11.0 [facility] Work Phone: Blood erythrocytes count (nu mber/volume)on 04-12-2022 RBC (Bld) [#/Vol] 3.44 10*6/uL 4.6-6.2 [facility] Work Phone: Blood hemoglobin measurement (mass/volume)on 04-12-2022 Hemoglobin (Bld) [Mass/Vol] 11.1 g/dL 13.0-16.[address] [facility] Work Phone: Blood lymphocytes/100 leukoc yteson 04-12-2022 Lymphocytes/100 WBC (Bld) 14.7 % 19-[address] [facility] Work Phone: Blood monocytes/100 leukocyt eson 04-12-2022 Monocytes/100 WBC (Bld) 6.9 % 0-10 [facility] Work Phone: [phone] Blood platelet mean volumeon 04-12-2022 Platelet mean volume (Bld) [Entitic vol] 9.4 fL 6.2-12.[address] [facility] Work Phone: Determination of erythrocyte mean corpuscular volume (MCV)on 04-12-2022 MCV (RBC) [Entitic vol] 98.8 fL 80-94 [facility] Work Phone: Hematocrit Auto (Bld) [Volum e fraction]on 04-12-2022 Hematocrit (Bld) [Volume fraction] 34.0 % 40-[address] [facility] Work Phone: Iron measurement (mass/mass) on 04-12-2022 Iron (Unsp spec) [Mass/Mass] 65 ug/dL 65-[address] [facility] Work Phone: [phone] Laboratory - Chemistry and C hemistry - challengeon 04-12-2022 CO2 [Moles/Vol] 31.0 mmol/L 21.0-32.[address] [facility] Work Phone: [phone] Urea nitrogen/Creatinine [Mass ratio] 24.7 mg/mg 10-[address] [facility] Work Phone: [phone] Laboratory - Hematology and Cell countson 04-12-2022 Erythrocyte distribution width (RBC) [Entitic vol] 51.0 fL 35.1-43.[address] [facility] Work Phone: [phone] Erythrocyte distribution width (RBC) [Ratio] 14.2 % 11.6-14.[address] [facility] Work Phone: [phone] Immature granulocytes/100 WBC (Bld) 0.500 % 0.0-0.[address] [facility] Work Phone: [phone] Comment on above: IG% - Immature Granu locytes (promyelocytes, myelocytes and metamyelocytes) > 1% indicates that a LEFT SHIFT is Present. MCH (RBC) [Entitic mass] 32.3 pg 27.0-32.[address] [facility] Work Phone: [phone] Nucleated RBC/100 WBC (Bld) [Ratio] 0 % 0-[address] [facility] Work Phone: [phone] MCHC Auto (RBC) [Mass/Vol]on 04-12-2022 MCHC (RBC) [Mass/Vol] 32.6 g/dL 32-36 [facility] Work Phone: [phone] Panel Informationon 04-12 Estimated GFR (MDRD) Amer 32 mL/min >[address] [facility] Work Phone: [phone] Comment on above: GFR Calc Estimated GFR (MDRD) Non-Af Amer 26 mL/min >[address] [facility] Work Phone: [phone] Comment on above: Non- GFR Calc Total Iron Binding Capacity 228 ug/dL 250-[address] [facility] Work Phone: Platelets bldon 04-12-2022 Platelets (Bld) [#/Vol] 140 10*3/uL 150-[address] [facility] Work Phone: Serum or plasma albumin aubree urement (mass/volume)on 04-12-2022 Albumin [Mass/Vol] 3.0 g/dL 3.2-5.0 [facility] Work Phone: [phone] Serum or plasma calcium aubree urement (mass/volume)on 04-12-2022 Calcium [Mass/Vol] 9.0 mg/dL 8.5-10.1 [facility] Work Phone: [phone] Serum or plasma creatinine m easurement (mass/volume)on 04-12-2022 Creatinine [Mass/Vol] 2.51 mg/dL 0.70-1.30 [facility] Work Phone: Comment on above: The validity of the calculated GFR & GFRAA in patients over 70 years has not been determined. Clinical correlation is essential. Serum or plasma ferritin laurie surement (mass/volume)on 04-12-2022 Ferritin [Mass/Vol] 250 ng/mL 26-388 [facility] Work Phone: [phone] Serum or plasma iron saturat ion measurement (mass fraction)on 04-12-2022 Iron saturation [Mass fraction] 28.5 % 15.0-55.[address] [facility] Work Phone: Serum or plasma urea nitroge n measurement (mass/volume)on 04-12-2022 Urea nitrogen [Mass/Vol] 62 mg/dL 7-[address] [facility] Work Phone: Absolute lymphocyte counton 03-29-2022 Lymphocytes Auto (Unsp spec) [#/Vol] 1.98 10*3/uL 0.83-4.[address] [facility] Work Phone: [phone] Basophil percentageon 2021 Basophil percentage 2.5 mg/dL 2.5-4.9 [facility] Work Phone: [phone] Basophils/100 WBC (Bld) 0.6 % 0-1 [facility] Work Phone: Chloride [Moles/Vol] 109 mmol/L 98-107 [facility] Work Phone: Eosinophils/100 WBC (Bld) 2.8 % 0-[address] [facility] Work Phone: Glucose [Mass/Vol] 121 mg/dL 74-106 [facility] Work Phone: Comment on above: Fasting Glucose resu lt from 100 to 125 mg/dL suggests IMPAIRED HOMEOSTASIS per A.D.A. criteria. Neutrophils (Bld) [#/Vol] 6.7 10*3/uL 2.0-7.[address] [facility] Work Phone: Neutrophils/100 WBC (Bld) 68.7 % 47-[address] [facility] Work Phone: Potassium [Moles/Vol] 4.4 mmol/L 3.5-5.1 [facility] Work Phone: Sodium [Moles/Vol] 140 mmol/L 136-145 [facility] Work Phone: WBC (Bld) [#/Vol] 9.8 10*3/uL 4.4-11.0 [facility] Work Phone: Blood erythrocytes count (nu mber/volume)on 03-29-2022 RBC (Bld) [#/Vol] 3.33 10*6/uL 4.6-6.2 [facility] Work Phone: Blood hemoglobin measurement (mass/volume)on 03-29-2022 Hemoglobin (Bld) [Mass/Vol] 10.5 g/dL 13.0-16.[address] [facility] Work Phone: Blood lymphocytes/100 leukoc yteson 03-29-2022 Lymphocytes/100 WBC (Bld) 20.2 % 19-[address] [facility] Work Phone: Blood monocytes/100 leukocyt eson 03-29-2022 Monocytes/100 WBC (Bld) 6.7 % 0-10 [facility] Work Phone: [phone] Blood platelet mean volumeon 03-29-2022 Platelet mean volume (Bld) [Entitic vol] 10.8 fL 6.2-12.[address] [facility] Work Phone: [phone] Determination of erythrocyte mean corpuscular volume (MCV)on 03-29-2022 MCV (RBC) [Entitic vol] 100.3 fL 80-94 [facility] Work Phone: [phone] Hematocrit Auto (Bld) [Volum e fraction]on 03-29-2022 Hematocrit (Bld) [Volume fraction] 33.4 % 40-[address] [facility] Work Phone: [phone] Iron measurement (mass/mass) on 03-29-2022 Iron (Unsp spec) [Mass/Mass] 71 ug/dL 65-[address] [facility] Work Phone: [phone] Laboratory - Chemistry and C hemistry - challengeon 03-29-2022 CO2 [Moles/Vol] 25.0 mmol/L 21.0-32.[address] [facility] Work Phone: [phone] Urea nitrogen/Creatinine [Mass ratio] 27.5 mg/mg 10-[address] [facility] Work Phone: [phone] Laboratory - Hematology and Cell countson 03-29-2022 Erythrocyte distribution width (RBC) [Entitic vol] 55.0 fL 35.1-43.[address] [facility] Work Phone: [phone] Erythrocyte distribution width (RBC) [Ratio] 15.1 % 11.6-14.[address] [facility] Work Phone: [phone] Immature granulocytes/100 WBC (Bld) 1.000 % 0.0-0.[address] [facility] Work Phone: [phone] Comment on above: IG% - Immature Granu locytes (promyelocytes, myelocytes and metamyelocytes) > 1% indicates that a LEFT SHIFT is Present. MCH (RBC) [Entitic mass] 31.5 pg 27.0-32.[address] [facility] Work Phone: [phone] Nucleated RBC/100 WBC (Bld) [Ratio] 0 % 0-[address] [facility] Work Phone: MCHC Auto (RBC) [Mass/Vol]on 03-29-2022 MCHC (RBC) [Mass/Vol] 31.4 g/dL 32-36 [facility] Work Phone: No Panel Informationon 03-29 Estimated GFR (MDRD) Amer 37 mL/min >[address] [facility] Work Phone: Comment on above: GFR Calc Estimated GFR (MDRD) Non-Af Amer 30 mL/min >[address] [facility] Work Phone: Comment on above: Non- GFR Calc Parathyroid Hormone (Intact) 143.9 pg/mL 18.4-80.[address] [facility] Work Phone: Total Iron Binding Capacity 242 ug/dL 250-[address] [facility] Work Phone: Platelets bldon 03-29-2022 Platelets (Bld) [#/Vol] 164 10*3/uL 150-[address] [facility] Work Phone: Serum or plasma albumin aubree urement (mass/volume)on 03-29-2022 Albumin [Mass/Vol] 3.0 g/dL 3.2-5.0 [facility] Work Phone: [phone] Serum or plasma calcium aubree urement (mass/volume)on 03-29-2022 Calcium [Mass/Vol] 8.1 mg/dL 8.5-10.1 [facility] Work Phone: [phone] Serum or plasma creatinine m easurement (mass/volume)on 03-29-2022 Creatinine [Mass/Vol] 2.22 mg/dL 0.70-1.30 [facility] Work Phone: Comment on above: The validity of the calculated GFR & GFRAA in patients over 70 years has not been determined. Clinical correlation is essential. Serum or plasma ferritin laurie surement (mass/volume)on 03-29-2022 Ferritin [Mass/Vol] 209 ng/mL 26-388 [facility] Work Phone: Serum or plasma iron saturat ion measurement (mass fraction)on 03-29-2022 Iron saturation [Mass fraction] 29.3 % 15.0-55.[address] [facility] Work Phone: Serum or plasma urea nitroge n measurement (mass/volume)on 03-29-2022 Urea nitrogen [Mass/Vol] 61 mg/dL 7-[address] [facility] Work Phone: Serum or plasma uric acid me asurement (mass/volume)on 03-29-2022 Urate [Mass/Vol] 5.8 mg/dL 3.5-7.[address] [facility] Work Phone: Comment on above: The drugs N-Acetylcy steine and Metamizole may falsely depress this assay. Urine creatinine measurement (mass/volume)on 03-29-2022 Creatinine (U) [Mass/Vol] 90.50 mg/dL NO RANGE EST. [facility] Work Phone: Urine protein measurement (m ass/volume)on 03-29-2022 Protein (U) [Mass/Vol] 81.6 mg/dL 0.0-11.8 [facility] Work Phone: Urine protein/creatinine mas s ratioon 03-29-2022 Protein/Creatinine (U) [Mass ratio] 902 mg/g CRE 0-[address] [facility] Work Phone: Absolute lymphocyte counton 03-15-2022 Lymphocytes Auto (Unsp spec) [#/Vol] 1.54 10*3/uL 0.83-4.[address] [facility] Work Phone: Basophil percentageon 2021 Basophil percentage 3.0 mg[facility]dL 2.5-4.9 [facility]: Basophils/100 WBC (Bld) 0.3 % 0-1 [facility] Work Phone: Chloride [Moles/Vol] 108 mmol/L 98-107 [facility] Work [facility]: Eosinophils/100 WBC (Bld) 1.4 % 0-5 [facility] Work Phone: Glucose [Mass/Vol] 233 mg/dL 74-106 [facility] Work Phone: [phone] Comment on above: Glucose result great er than or equal to 200 mg/dLsuggests DIABETES MELLITUS per A.D.A. criteria. Neutrophils (Bld) [#/Vol] 7.0 10*3/uL 2.0-7.[address] [facility] Work Phone: [phone] Neutrophils/100 WBC (Bld) 74.8 % 47-[address] [facility] Work Phone: [phone] Potassium [Moles/Vol] 4.5 mmol/L 3.5-5.1 [facility] Work Phone: [phone] Sodium [Moles/Vol] 139 mmol/L 136-145 [facility] Work Phone: [phone] WBC (Bld) [#/Vol] 9.3 10*3/uL 4.4-11.0 [facility] Work Phone: [phone] Blood erythrocytes count (nu mber/volume)on 03-15-2022 RBC (Bld) [#/Vol] 3.12 10*6/uL 4.6-6.2 [facility] Work Phone: [phone] Blood hemoglobin measurement (mass/volume)on 03-15-2022 Hemoglobin (Bld) [Mass/Vol] 9.9 g/dL 13.0-16.[address] [facility] Work Phone: [phone] Blood lymphocytes/100 leukoc yteson 03-15-2022 Lymphocytes/100 WBC (Bld) 16.5 % 19-[address] [facility] Work Phone: [phone] Blood monocytes/100 leukocyt eson 03-15-2022 Monocytes/100 WBC (Bld) 5.6 % 0-10 [facility] Work Phone: [phone] Blood platelet mean volumeon 03-15-2022 Platelet mean volume (Bld) [Entitic vol] 9.9 fL 6.2-12.[address] [facility] Work Phone: Determination of erythrocyte mean corpuscular volume (MCV)on 03-15-2022 MCV (RBC) [Entitic vol] 100.6 fL 80-94 [facility] Work Phone: [phone] Hematocrit Auto (Bld) [Volum e fraction]on 03-15-2022 Hematocrit (Bld) [Volume fraction] 31.4 % 40-[address] [facility] Work Phone: [phone] Iron measurement (mass/mass) on 03-15-2022 Iron (Unsp spec) [Mass/Mass] 69 ug/dL 65-[address] [facility] Work Phone: [phone] Laboratory - Chemistry and C hemistry - challengeon 03-15-2022 CO2 [Moles/Vol] 25.0 mmol/L 21.0-32.[address] [facility] Work Phone: [phone] Urea nitrogen/Creatinine [Mass ratio] 31.6 mg/mg 10-[address] [facility] Work Phone: [phone] Laboratory - Hematology and Cell countson 03-15-2022 Erythrocyte distribution width (RBC) [Entitic vol] 56.5 fL 35.1-43.[address] [facility] Work Phone: [phone] Erythrocyte distribution width (RBC) [Ratio] 15.5 % 11.6-14.[address] [facility] Work Phone: [phone] Immature granulocytes/100 WBC (Bld) 1.400 % 0.0-0.[address] [facility] Work Phone: [phone] Comment on above: IG% - Immature Granu locytes (promyelocytes, myelocytes and metamyelocytes) > 1% indicates that a LEFT SHIFT is Present. MCH (RBC) [Entitic mass] 31.7 pg 27.0-32.[address] [facility] Work Phone: [phone] Nucleated RBC/100 WBC (Bld) [Ratio] 0 % 0-[address] [facility] Work Phone: [phone] MCHC Auto (RBC) [Mass/Vol]on 03-15-2022 MCHC (RBC) [Mass/Vol] 31.5 g/dL 32-36 [facility] Work Phone: No Panel Informationon 03-15 Estimated Creatinine Clearance Calc 17.61 ml/min [facility] Work Phone: Estimated GFR (MDRD) Amer 27 mL/min >[address] [facility] Work Phone: Comment on above: GFR Calc Estimated GFR (MDRD) Non-Af Amer 22 mL/min >[address] [facility] Work Phone: Comment on above: Non- GFR Calc Parathyroid Hormone (Intact) 89.0 pg/mL 18.4-80.[address] [facility] Work Phone: Total Iron Binding Capacity 254 ug/dL 250-[address] [facility] Work Phone: Platelets bldon 03-15-2022 Platelets (Bld) [#/Vol] 134 10*3/uL 150-[address] [facility] Work Phone: Serum or plasma albumin aubree urement (mass/volume)on 03-15-2022 Albumin [Mass/Vol] 3.1 g/dL 3.2-5.0 [facility] Work Phone: Serum or plasma calcium aubree urement (mass/volume)on 03-15-2022 Calcium [Mass/Vol] 8.9 mg/dL 8.5-10.1 [facility] Work Phone: Serum or plasma creatinine m easurement (mass/volume)on 03-15-2022 Creatinine [Mass/Vol] 2.91 mg/dL 0.70-1.30 [facility] Work Phone: Comment on above: The validity of the calculated GFR & GFRAA in patients over 70 years has not been determined. Clinical correlation is essential. Serum or plasma ferritin laurie surement (mass/volume)on 03-15-2022 Ferritin [Mass/Vol] 237 ng/mL 26-388 [facility] Work Phone: Serum or plasma iron saturat ion measurement (mass fraction)on 03-15-2022 Iron saturation [Mass fraction] 27.2 % 15.0-55.[address] [facility] Work Phone: Serum or plasma urea nitroge n measurement (mass/volume)on 03-15-2022 Urea nitrogen [Mass/Vol] 92 mg/dL 7-[address] [facility] Work Phone: Absolute lymphocyte counton 02-15-2022 Lymphocytes Auto (Unsp spec) [#/Vol] 1.47 10*3/uL 0.83-4.[address] [facility] Work Phone: Basophil percentageon 2021 Basophil percentage 3.3 mg/dL 2.5-4.9 [facility] Work Phone: Basophils/100 WBC (Bld) 0.2 % 0-1 [facility] Work Phone: Chloride [Moles/Vol] 110 mmol/L 98-107 [facility] Work Phone: Eosinophils/100 WBC (Bld) 1.4 % 0-[address] [facility] Work Phone: Glucose [Mass/Vol] 139 mg/dL 74-106 [facility] Work Phone: Comment on above: Fasting Glucose resu lt greater than or equal to 126 mg/dL suggests DIABETES MELLITUS per A.D.A. criteria. Neutrophils (Bld) [#/Vol] 7.7 10*3/uL 2.0-7.[address] [facility] Work Phone: Neutrophils/100 WBC (Bld) 76.8 % 47-[address] [facility] Work Phone: Potassium [Moles/Vol] 4.7 mmol/L 3.5-5.1 [facility] Work Phone: Sodium [Moles/Vol] 141 mmol/L 136-145 [facility] Work Phone: WBC (Bld) [#/Vol] 10.0 10*3/uL 4.4-11.0 [facility] Work Phone: Blood erythrocytes count (nu mber/volume)on 02-15-2022 RBC (Bld) [#/Vol] 3.28 10*6/uL 4.6-6.2 [facility] Work [facility]: Blood hemoglobin measurement (mass/volume)on 02-15-2022 Hemoglobin (Bld) [Mass/Vol] 10.6 g/dL 13.0-16.[address] [facility] Work Phone: Blood lymphocytes/100 leukoc yteson 02-15-2022 Lymphocytes/100 WBC (Bld) 14.8 % 19-[address] [facility] Work Phone: Blood monocytes/100 leukocyt eson 02-15-2022 Monocytes/100 WBC (Bld) 6.4 % 0-10 [facility] Work Phone: Blood platelet mean volumeon 02-15-2022 Platelet mean volume (Bld) [Entitic vol] 10.0 fL 6.2-12.[address] [facility] Work Phone: Determination of erythrocyte mean corpuscular volume (MCV)on 02-15-2022 MCV (RBC) [Entitic vol] 98.8 fL 80-94 [facility] Work Phone: Hematocrit Auto (Bld) [Volum e fraction]on 02-15-2022 Hematocrit (Bld) [Volume fraction] 32.4 % 40-[address] [facility] Work Phone: Iron measurement (mass/mass) on 02-15-2022 Iron (Unsp spec) [Mass/Mass] 78 ug/dL 65-[address] [facility] Work Phone: Laboratory - Chemistry and C hemistry - challengeon 02-15-2022 CO2 [Moles/Vol] 27.0 mmol/L 21.0-32.[address] [facility] Work Phone: Urea nitrogen/Creatinine [Mass ratio] 34.2 mg/mg 10-[address] [facility] Work Phone: Laboratory - Hematology and Cell countson 02-15-2022 Erythrocyte distribution width (RBC) [Entitic vol] 53.1 fL 35.1-43.[address] [facility] Work Phone: Erythrocyte distribution width (RBC) [Ratio] 14.8 % 11.6-14.[address] [facility] Work Phone: [phone] Immature granulocytes/100 WBC (Bld) 0.400 % 0.0-0.[address] [facility] Work Phone: [phone] Comment on above: IG% - Immature Granu locytes (promyelocytes, myelocytes and metamyelocytes) > 1% indicates that a LEFT SHIFT is Present. MCH (RBC) [Entitic mass] 32.3 pg 27.0-32.[address] [facility] Work Phone: Nucleated RBC/100 WBC (Bld) [Ratio] 0 % 0-[address] [facility] Work Phone: MCHC Auto (RBC) [Mass/Vol]on 02-15-2022 MCHC (RBC) [Mass/Vol] 32.7 g/dL 32-36 [facility] Work Phone: No Panel Informationon 02-15 Estimated GFR (MDRD) Amer 37 mL/min >[address] [facility] Work Phone: [phone] Comment on above: GFR Calc Estimated GFR (MDRD) Non-Af Amer 31 mL/min >[address] [facility] Work Phone: Comment on above: Non- GFR Calc Total Iron Binding Capacity 250 ug/dL 250-[address] [facility] Work Phone: [phone] Platelets bldon 02-15-2022 Platelets (Bld) [#/Vol] 127 10*3/uL 150-[address] [facility] Work Phone: [phone] Serum or plasma albumin aubree urement (mass/volume)on 02-15-2022 Albumin [Mass/Vol] 3.2 g/dL 3.2-5.0 [facility] Work Phone: [phone] Serum or plasma calcium aubree urement (mass/volume)on 02-15-2022 Calcium [Mass/Vol] 9.3 mg/dL 8.5-10.1 [facility] Work Phone: [phone] Serum or plasma creatinine m easurement (mass/volume)on 02-15-2022 Creatinine [Mass/Vol] 2.19 mg/dL 0.70-1.30 [facility] Work Phone: Comment on above: The validity of the calculated GFR & GFRAA in patients over 70 years has not been determined. Clinical correlation is essential. Serum or plasma ferritin laurie surement (mass/volume)on 02-15-2022 Ferritin [Mass/Vol] 257 ng/mL 26-388 [facility] Work Phone: [phone] Serum or plasma iron saturat ion measurement (mass fraction)on 02-15-2022 Iron saturation [Mass fraction] 31.2 % 15.0-55.[address] [facility] Work Phone: Serum or plasma urea nitroge n measurement (mass/volume)on 02-15-2022 Urea nitrogen [Mass/Vol] 75 mg/dL 7-[address] [facility] Work Phone: Basophil percentageon 2021 Chloride [Moles/Vol] 105 mmol/L 98-107 [facility] Work Phone: [phone] Glucose [Mass/Vol] 120 mg/dL 74-106 [facility] Work Phone: Comment on above: Fasting Glucose resu lt from 100 to 125 mg/dL suggests IMPAIRED HOMEOSTASIS per A.D.A. criteria. Potassium [Moles/Vol] 4.8 mmol/L 3.5-5.1 [facility] [facility] Work Phone: [phone] Sodium [Moles/Vol] 138 mmol/L 136-145 [facility] Work Phone: [phone] WBC (Bld) [#/Vol] 10.6 10*3/uL 4.4-11.0 [facility] Work Phone: [phone] Blood erythrocytes count (nu mber/volume)on 01-25-2022 RBC (Bld) [#/Vol] 4.06 10*6/uL 4.6-6.2 [facility] Work Phone: Blood hemoglobin measurement (mass/volume)on 01-25-2022 Hemoglobin (Bld) [Mass/Vol] 12.7 g/dL 13.0-16.[address] [facility] Work Phone: [phone] Blood platelet mean volumeon 01-25-2022 Platelet mean volume (Bld) [Entitic vol] 10.6 fL 6.2-12.[address] [facility] Work Phone: [phone] Determination of erythrocyte mean corpuscular volume (MCV)on 01-25-2022 MCV (RBC) [Entitic vol] 97.5 fL 80-94 [facility] Work Phone: [phone] Hematocrit Auto (Bld) [Volum e fraction]on 01-25-2022 Hematocrit (Bld) [Volume fraction] 39.6 % 40-[address] [facility] Work Phone: Laboratory - Chemistry and C hemistry - challengeon 01-25-2022 CO2 [Moles/Vol] 31.0 mmol/L 21.0-32.[address] [facility] Work Phone: [phone] Urea nitrogen/Creatinine [Mass ratio] 34.9 mg/mg 10-[address] [facility] Work Phone: [phone] Laboratory - Hematology and Cell countson 01-25-2022 Erythrocyte distribution width (RBC) [Entitic vol] 52.1 fL 35.1-43.[address] [facility] Work Phone: [phone] Erythrocyte distribution width (RBC) [Ratio] 14.5 % 11.6-14.[address] [facility] Work Phone: [phone] MCH (RBC) [Entitic mass] 31.3 pg 27.0-32.[address] [facility] Work Phone: [phone] MCHC Auto (RBC) [Mass/Vol]on 01-25-2022 MCHC (RBC) [Mass/Vol] 32.1 g/dL 32-36 [facility] Work Phone: No Panel Informationon 01-25 Estimated GFR (MDRD) Amer 38 mL/min >[address] [facility] Work Phone: Comment on above: GFR Calc Estimated GFR (MDRD) Non-Af Amer 31 mL/min >[address] [facility] Work Phone: Comment on above: Non- GFR Calc Platelets bldon 01-25-2022 Platelets (Bld) [#/Vol] 151 10*3/uL 150-[address] [facility] Work Phone: Serum or plasma calcium aubree urement (mass/volume)on 01-25-2022 Calcium [Mass/Vol] 8.8 mg/dL 8.5-10.1 [facility] Work Phone: Serum or plasma creatinine m easurement (mass/volume)on 01-25-2022 Creatinine [Mass/Vol] 2.18 mg/dL 0.70-1.30 [facility] Work Phone: Comment on above: The validity of the calculated GFR & GFRAA in patients over 70 years has not been determined. Clinical correlation is essential. Serum or plasma urea nitroge n measurement (mass/volume)on 01-25-2022 Urea nitrogen [Mass/Vol] 76 mg/dL 7-[address] [facility] Work Phone: Thin prep Papanicolaou smear with manual screeningon 01-25-2022 Thin prep Papanicolaou smear with manual screening 2 5-[address] [facility] Work Phone: Whole blood hemoglobin A1c/t otal hemoglobin ratio (mass fraction)on 01-25-2022 HbA1c (Bld) [Mass fraction] 6.6 % 3.8-5.[address] [facility] Work Phone: Comment on above: Normal < 5.7 % Predi abetic 5.7 - 6.4 % Diabetic >or= 6.5 % Please note range changes. Absolute lymphocyte counton 01-18-2022 Lymphocytes Auto (Unsp spec) [#/Vol] 1.51 10*3/uL 0.83-4.[address] [facility] Work Phone: Basophil percentageon 2021 Basophil percentage 2.4 mg/dL 2.5-4.9 [facility] Work Phone: Basophils/100 WBC (Bld) 0.3 % 0-1 [facility] Work Phone: Chloride [Moles/Vol] 105 mmol/L 98-107 [facility] Work Phone: Eosinophils/100 WBC (Bld) 0.6 % 0-[address] [facility] Work Phone: Glucose [Mass/Vol] 225 mg/dL 74-106 [facility] Work Phone: Comment on above: Glucose result great er than or equal to 200 mg/dLsuggests DIABETES MELLITUS per A.D.A. criteria. Neutrophils (Bld) [#/Vol] 7.7 10*3/uL 2.0-7.[address] [facility] Work Phone: Neutrophils/100 WBC (Bld) 77.2 % 47-[address] [facility] Work Phone: Potassium [Moles/Vol] 4.4 mmol/L 3.5-5.1 [facility] Work Phone: Sodium [Moles/Vol] 138 mmol/L 136-145 [facility] Work Phone: WBC (Bld) [#/Vol] 9.9 10*3/uL 4.4-11.0 [facility] Work Phone: Blood erythrocytes count (nu mber/volume)on 01-18-2022 RBC (Bld) [#/Vol] 3.88 10*6/uL 4.6-6.2 [facility] Work Phone: Blood hemoglobin measurement (mass/volume)on 01-18-2022 Hemoglobin (Bld) [Mass/Vol] 12.3 g/dL 13.0-16.[address] [facility] Work Phone: Blood lymphocytes/100 leukoc yteson 01-18-2022 Lymphocytes/100 WBC (Bld) 15.2 % 19-[address] [facility] Work Phone: Blood monocytes/100 leukocyt eson 01-18-2022 Monocytes/100 WBC (Bld) 6.3 % 0-10 [facility] Work Phone: [phone] Blood platelet mean volumeon 01-18-2022 Platelet mean volume (Bld) [Entitic vol] 10.9 fL 6.2-12.[address] [facility] Work Phone: [phone] Determination of erythrocyte mean corpuscular volume (MCV)on 01-18-2022 MCV (RBC) [Entitic vol] 95.6 fL 80-94 [facility] Work Phone: [phone] Hematocrit Auto (Bld) [Volum e fraction]on 01-18-2022 Hematocrit (Bld) [Volume fraction] 37.1 % 40-[address] [facility] Work Phone: [phone] Iron measurement (mass/mass) on 01-18-2022 Iron (Unsp spec) [Mass/Mass] 94 ug/dL 65-[address] [facility] Work Phone: [phone] Laboratory - Chemistry and C hemistry - challengeon 01-18-2022 CO2 [Moles/Vol] 27.0 mmol/L 21.0-32.[address] [facility] Work Phone: [phone] Urea nitrogen/Creatinine [Mass ratio] 37.1 mg/mg 10-[address] [facility] Work Phone: [phone] Laboratory - Hematology and Cell countson 01-18-2022 Erythrocyte distribution width (RBC) [Entitic vol] 51.5 fL 35.1-43.[address] [facility] Work Phone: [phone] Erythrocyte distribution width (RBC) [Ratio] 14.8 % 11.6-14.[address] [facility] Work Phone: [phone] Immature granulocytes/100 WBC (Bld) 0.400 % 0.0-0.[address] [facility] Work Phone: [phone] Comment on above: IG% - Immature Granu locytes (promyelocytes, myelocytes and metamyelocytes) > 1% indicates that a LEFT SHIFT is Present. MCH (RBC) [Entitic mass] 31.7 pg 27.0-32.[address] [facility] Work Phone: Nucleated RBC/100 WBC (Bld) [Ratio] 0 % 0-[address] [facility] Work Phone: [phone] MCHC Auto (RBC) [Mass/Vol]on 01-18-2022 MCHC (RBC) [Mass/Vol] 33.2 g/dL 32-36 [facility] Work Phone: No Panel Informationon 01-18 Estimated GFR (MDRD) Amer 37 mL/min >[address] [facility] Work Phone: Comment on above: GFR Calc Estimated GFR (MDRD) Non-Af Amer 31 mL/min >[address] [facility] Work Phone: Comment on above: Non- GFR Calc Total Iron Binding Capacity 239 ug/dL 250-[address] [facility] Work Phone: Platelets bldon 01-18-2022 Platelets (Bld) [#/Vol] 143 10*3/uL 150-[address] [facility] Work Phone: [phone] Serum or plasma albumin aubree urement (mass/volume)on 01-18-2022 Albumin [Mass/Vol] 3.2 g/dL 3.2-5.0 [facility] Work Phone: Serum or plasma calcium aubree urement (mass/volume)on 01-18-2022 Calcium [Mass/Vol] 8.4 mg/dL 8.5-10.1 [facility] Work Phone: [phone] Serum or plasma creatinine m easurement (mass/volume)on 01-18-2022 Creatinine [Mass/Vol] 2.21 mg/dL 0.70-1.30 [facility] Work Phone: Comment on above: The validity of the calculated GFR & GFRAA in patients over 70 years has not been determined. Clinical correlation is essential. Serum or plasma ferritin laurie surement (mass/volume)on 01-18-2022 Ferritin [Mass/Vol] 241 ng/mL 26-388 [facility] Work Phone: [phone] Serum or plasma iron saturat ion measurement (mass fraction)on 01-18-2022 Iron saturation [Mass fraction] 39.3 % 15.0-55.[address] [facility] Work Phone: Serum or plasma urea nitroge n measurement (mass/volume)on 01-18-2022 Urea nitrogen [Mass/Vol] 82 mg/dL 7-[address] [facility] Work Phone: Absolute lymphocyte counton 12-21-2021 Lymphocytes Auto (Unsp spec) [#/Vol] 1.78 10*3/uL 0.83-4.[address] [facility] Work Phone: Basophil percentageon 2021 Basophil percentage 2.6 mg/dL 2.5-4.9 [facility] Work Phone: Basophils/100 WBC (Bld) 0.5 % 0-1 [facility] Work Phone: Chloride [Moles/Vol] 107 mmol/L 98-107 [facility] Work Phone: Eosinophils/100 WBC (Bld) 4.2 % 0-[address] [facility] Work Phone: Glucose [Mass/Vol] 159 mg/dL 74-106 [facility] Work Phone: Comment on above: Fasting Glucose resu lt greater than or equal to 126 mg/dL suggests DIABETES MELLITUS per A.D.A. criteria. Neutrophils (Bld) [#/Vol] 5.0 10*3/uL 2.0-7.[address] [facility] Work Phone: Neutrophils/100 WBC (Bld) 64.1 % 47-[address] [facility] Work Phone: Potassium [Moles/Vol] 4.5 mmol/L 3.5-5.1 [facility] Work Phone: Sodium [Moles/Vol] 138 mmol/L 136-145 [facility] Work Phone: WBC (Bld) [#/Vol] 7.8 10*3/uL 4.4-11.0 [facility] Work Phone: Blood erythrocytes count (nu mber/volume)on 12-21-2021 RBC (Bld) [#/Vol] 3.63 10*6/uL 4.6-6.2 [facility] Work Phone: [phone] Blood hemoglobin measurement (mass/volume)on 12-21-2021 Hemoglobin (Bld) [Mass/Vol] 11.3 g/dL 13.0-16.[address] [facility] Work Phone: [phone] Blood lymphocytes/100 leukoc yteson 12-21-2021 Lymphocytes/100 WBC (Bld) 22.7 % 19-[address] [facility] Work Phone: [phone] Blood monocytes/100 leukocyt eson 12-21-2021 Monocytes/100 WBC (Bld) 8.0 % 0-10 [facility] Work Phone: [phone] Blood platelet mean volumeon 12-21-2021 Platelet mean volume (Bld) [Entitic vol] 10.4 fL 6.2-12.[address] [facility] Work Phone: [phone] Determination of erythrocyte mean corpuscular volume (MCV)on 12-21-2021 MCV (RBC) [Entitic vol] 95.0 fL 80-94 [facility] Work Phone: [phone] Hematocrit Auto (Bld) [Volum e fraction]on 12-21-2021 Hematocrit (Bld) [Volume fraction] 34.5 % 40-[address] [facility] Work Phone: [phone] Iron measurement (mass/mass) on 12-21-2021 Iron (Unsp spec) [Mass/Mass] 79 ug/dL 65-[address] [facility] Work Phone: [phone] Laboratory - Chemistry and C hemistry - challengeon 12-21-2021 CO2 [Moles/Vol] 26.0 mmol/L 21.0-32.[address] [facility] Work Phone: [phone] Urea nitrogen/Creatinine [Mass ratio] 31.5 mg/mg 10-[address] [facility] Work Phone: [phone] Laboratory - Hematology and Cell countson 12-21-2021 Erythrocyte distribution width (RBC) [Entitic vol] 51.0 fL 35.1-43.[address] [facility] Work Phone: [phone] Erythrocyte distribution width (RBC) [Ratio] 14.8 % 11.6-14.[address] [facility] Work Phone: [phone] Immature granulocytes/100 WBC (Bld) 0.500 % 0.0-0.[address] [facility] Work Phone: [phone] Comment on above: IG% - Immature Granu locytes (promyelocytes, myelocytes and metamyelocytes) > 1% indicates that a LEFT SHIFT is Present. MCH (RBC) [Entitic mass] 31.1 pg 27.0-32.[address] [facility] Work Phone: [phone] Nucleated RBC/100 WBC (Bld) [Ratio] 0 % 0-[address] [facility] Work Phone: [phone] MCHC Auto (RBC) [Mass/Vol]on 12-21-2021 MCHC (RBC) [Mass/Vol] 32.8 g/dL 32-36 [facility] Work Phone: No Panel Informationon 12-21 Estimated GFR (MDRD) Amer 32 mL/min >[address] [facility] Work Phone: [phone] Comment on above: GFR Calc Estimated GFR (MDRD) Non-Af Amer 26 mL/min >[address] [facility] Work Phone: [phone] Comment on above: Non- GFR Calc Parathyroid Hormone (Intact) 43.1 pg/mL 18.4-80.[address] [facility] Work Phone: [phone] Total Iron Binding Capacity 228 ug/dL 250-[address] [facility] Work Phone: [phone] Platelets bldon 12-21-2021 Platelets (Bld) [#/Vol] 140 10*3/uL 150-[address] [facility] Work Phone: [phone] Serum or plasma albumin aubree urement (mass/volume)on 12-21-2021 Albumin [Mass/Vol] 3.0 g/dL 3.2-5.0 [facility] Work Phone: Serum or plasma calcium aubree urement (mass/volume)on 12-21-2021 Calcium [Mass/Vol] 8.9 mg/dL 8.5-10.1 [facility] Work Phone: Serum or plasma creatinine m easurement (mass/volume)on 12-21-2021 Creatinine [Mass/Vol] 2.54 mg/dL 0.70-1.30 [facility] Work Phone: Comment on above: The validity of the calculated GFR & GFRAA in patients over 70 years has not been determined. Clinical correlation is essential. Serum or plasma ferritin laurie surement (mass/volume)on 12-21-2021 Ferritin [Mass/Vol] 356 ng/mL 26-388 [facility] Work Phone: Serum or plasma iron saturat ion measurement (mass fraction)on 12-21-2021 Iron saturation [Mass fraction] 34.6 % 15.0-55.[address] [facility] Work Phone: Serum or plasma urea nitroge n measurement (mass/volume)on 12-21-2021 Urea nitrogen [Mass/Vol] 80 mg/dL 7-[address] [facility] Work Phone: Vital Signs Date Time Vital Sign Value Performing Clinician Facility 03-14-2025 08:07-0400 Body mass index (BMI) [Ratio] 39.7 kg/m2 Dr. Rios Downey DO Work Phone: [facility] 03-14-2025 08:07-0400 Body temperature 97.4 [degF] Dr. Rios Downey DO Work Phone: [facility] 03-14-2025 08:07-0400 Body weight 108.[address] Rios Downey DO Work Phone: [facility] 03-14-2025 08:07-0400 Diastolic blood pressure 83 mm[Hg] Dr. Rios Downey DO Work Phone: [facility] 03-14-2025 08:07-0400 Heart rate 50 /min Dr. Rios Downey DO Work Phone: [facility] 03-14-2025 08:07-0400 Inhaled oxygen flow rate 4 L/min Dr. Rios Downey DO Work Phone: [facility] 03-14-2025 08:07-0400 Respiratory rate 20 /min Dr. Rios Downey DO Work Phone: [facility] 03-14-2025 08:07-0400 SaO2% (BldA) [Mass fraction] 99 % Dr. Rios Downey DO Work Phone: [facility] 03-14-2025 08:07-0400 Systolic blood pressure 165 mm[Hg] Dr. Rios Downey DO Work Phone: [facility] 03-23-2024 15:00-0400 Body height 165.[address] Rios Downey Work Phone: [facility] 03-23-2024 15:00-0400 Body mass index (BMI) [Ratio] 38.9 kg/m2 Dr. Rios Downey Work Phone: [facility] 03-23-2024 15:00-0400 Body weight 106.[address] Rios Downey Work Phone: [facility] 03-23-2024 15:00-0400 Diastolic blood pressure 68 mm[Hg] Dr. Rios Downey Work Phone: [facility] 03-23-2024 15:00-0400 Heart rate 73 /min Dr. Rios Downey Work Phone: [facility] 03-23-2024 15:00-0400 Inhaled oxygen flow rate 5 L/min Dr. Rios Downey Work Phone: [facility] 03-23-2024 15:00-0400 Respiratory rate 22 /min Dr. Rios Downey Work Phone: [facility] 03-23-2024 15:00-0400 SaO2% (BldA) [Mass fraction] 96 % Dr. Rios Downey Work Phone: [facility] 03-23-2024 15:00-0400 Systolic blood pressure 111 mm[Hg] Dr. Rios Downey Work Phone: [facility] 02-19-2024 16:28-0400 Body temperature 97.6 [degF] [facility] 02-19-2024 16:28-0400 Diastolic blood pressure 72 mm[Hg] [facility] 02-19-2024 16:28-0400 Heart rate 52 /min [facility] 02-19-2024 16:28-0400 Respiratory rate 17 /min [facility] 02-19-2024 16:28-0400 SaO2% (BldA) [Mass fraction] 95 % [facility] 02-19-2024 16:28-0400 Systolic blood pressure 149 mm[Hg] [facility] 02-19-2024 13:00-0400 Inhaled oxygen flow rate 2 L/min [facility] 02-19-2024 12:32-0400 Body mass index (BMI) [Ratio] 39.4 kg/m2 [facility] 02-19-2024 12:32-0400 Body weight 107.4 kg [facility] 02-19-2024 11:34-0400 Body height 165.1 cm [facility] 02-16-2024 03:00-0400 Body temperature 97.7 [degF] [facility] 02-16-2024 03:00-0400 Diastolic blood pressure 100 mm[Hg] [facility] 02-16-2024 03:00-0400 Heart rate 57 /min [facility] 02-16-2024 03:00-0400 Respiratory rate 18 /min [facility] 02-16-2024 03:00-0400 SaO2% (BldA) [Mass fraction] 98 % [facility] 02-16-2024 03:00-0400 Systolic blood pressure 135 mm[Hg] [facility] 02-15-2024 23:56-0400 Body mass index (BMI) [Ratio] 38.6 kg/m2 [facility] 02-15-2024 23:56-0400 Body weight 105.4 kg [facility] 02-15-2024 22:56-0400 Body height 165.1 cm [facility] 02-15-2024 22:56-0400 Inhaled oxygen flow rate 2 L/min [facility] 11-23-2023 15:42-0500 Body height 165.[address] Rios Downey Work Phone: [facility] 11-23-2023 15:42-0500 Body mass index (BMI) [Ratio] 41.5 kg/m2 Dr. Rios Downey Work Phone: [facility] 11-23-2023 15:42-0500 Body temperature 97.4 [degF] Dr. Rios Downey Work Phone: [facility] 11-23-2023 15:42-0500 Body weight 113.[address] Rios Downey Work Phone: [facility] 11-23-2023 15:42-0500 Diastolic blood pressure 53 mm[Hg] Dr. Rios Downey Work Phone: [facility] 11-23-2023 15:42-0500 Heart rate 61 /min Dr. Rios Downey Work Phone: [facility] 11-23-2023 15:42-0500 Inhaled oxygen flow rate 2 L/min Dr. Rios Downey Work Phone: [facility] 11-23-2023 15:42-0500 Respiratory rate 16 /min Dr. Rios Downey Work Phone: [facility] 11-23-2023 15:42-0500 Systolic blood pressure 101 mm[Hg] Dr. Rios Downey Work Phone: [facility] 10-05-2023 07:44-0500 Body height 165.[address] Rios Downey Work Phone: [facility] 10-05-2023 07:44-0500 Body mass index (BMI) [Ratio] 41.4 kg/m2 Dr. Rios Downey Work Phone: [facility] 10-05-2023 07:44-0500 Body temperature 98.5 [degF] Dr. Rios Downey Work Phone: [facility] 10-05-2023 07:44-0500 Body weight 112.[address] Rios Downey Work Phone: [facility] 10-05-2023 07:44-0500 Diastolic blood pressure 59 mm[Hg] Dr. Rios Downey Work Phone: [facility] 10-05-2023 07:44-0500 Heart rate 65 /min Dr. Rios Downey Work Phone: [facility] 10-05-2023 07:44-0500 Inhaled oxygen flow rate 2 L/min Dr. Rios Downey Work Phone: [facility] 10-05-2023 07:44-0500 Respiratory rate 17 /min Dr. Rios Downey Work Phone: [facility] 10-05-2023 07:44-0500 SaO2% (BldA) [Mass fraction] 94 % Dr. Rios Downey Work Phone: [facility] 10-05-2023 07:44-0500 Systolic blood pressure 109 mm[Hg] Dr. Rios Downey Work Phone: [facility] 09-28-2023 15:55-0400 Body height 165.[address] Rios Downey Work Phone: [facility] 09-28-2023 15:55-0400 Body mass index (BMI) [Ratio] 41.4 kg/m2 Dr. Rios Downey Work Phone: [facility] 09-28-2023 15:55-0400 Body temperature 97.9 [degF] Dr. Rios Downey Work Phone: [facility] 09-28-2023 15:55-0400 Body weight 112.[address] Rios Downey Work Phone: [facility] 09-28-2023 15:55-0400 Diastolic blood pressure 72 mm[Hg] Dr. Rios Downey Work Phone: [facility] 09-28-2023 15:55-0400 Heart rate 54 /min Dr. Rios Downey Work Phone: [facility] 09-28-2023 15:55-0400 Inhaled oxygen flow rate 2 L/min Dr. Rios Downey Work Phone: [facility] 09-28-2023 15:55-0400 Respiratory rate 18 /min Dr. Rios Downey Work Phone: [facility] 09-28-2023 15:55-0400 SaO2% (BldA) [Mass fraction] 96 % Dr. Rios Downey Work Phone: [facility] 09-28-2023 15:55-0400 Systolic blood pressure 154 mm[Hg] Dr. Rios Downey Work Phone: [facility] 09-22-2023 16:45-0400 Body temperature 98.1 [degF] Dr. Rios Downey Work Phone: [facility] 09-22-2023 16:45-0400 Diastolic blood pressure 74 mm[Hg] Dr. Rios Downey Work Phone: [facility] 09-22-2023 16:45-0400 Heart rate 66 /min Dr. Rios Downey Work Phone: [facility] 09-22-2023 16:45-0400 Inhaled oxygen flow rate 5 L/min Dr. Rios Downey Work Phone: [facility] 09-22-2023 16:45-0400 Respiratory rate 18 /min Dr. Rios Downey Work Phone: [facility] 09-22-2023 16:45-0400 SaO2% (BldA) [Mass fraction] 95 % Dr. Rios Downey Work Phone: [facility] 09-22-2023 16:45-0400 Systolic blood pressure 143 mm[Hg] Dr. Rios Downey Work Phone: [facility] 09-22-2023 02:48-0400 Body mass index (BMI) [Ratio] 41.6 kg/m2 Dr. Rios Downey Work Phone: [facility] 09-22-2023 02:48-0400 Body weight 113.[address] Rios Downey Work Phone: [facility] 09-20-2023 22:50-0400 Inhaled oxygen concentration 30 % Dr. Rios Downey Work Phone: [facility] 09-17-2023 11:05-0400 Body height 165.[address] Rios Downey Work Phone: [facility] 09-16-2023 20:02-0400 Diastolic blood pressure 77 mm[Hg] Dr. Rios Downey Work Phone: [facility] 09-16-2023 20:02-0400 Heart rate 56 /min Dr. Rios Downey Work Phone: [facility] 09-16-2023 20:02-0400 Inhaled oxygen flow rate 6 L/min Dr. Rios Downey Work Phone: [facility] 09-16-2023 20:02-0400 Respiratory rate 14 /min Dr. Rios Downey Work Phone: [facility] 09-16-2023 20:02-0400 SaO2% (BldA) [Mass fraction] 99 % Dr. Rios Downey Work Phone: [facility] 09-16-2023 20:02-0400 Systolic blood pressure 144 mm[Hg] Dr. Rios Downey Work Phone: [facility] 09-16-2023 19:15-0400 Body temperature 96.6 [degF] Dr. Rios Downey Work Phone: [facility] 09-16-2023 16:12-0400 Body mass index (BMI) [Ratio] 43.5 kg/m2 Dr. Rios Downey Work Phone: [facility] 09-16-2023 16:12-0400 Body weight 118.[address] Rios Downey Work Phone: [facility] 09-16-2023 15:20-0400 Body height 165.[address] Rios Downey Work Phone: [facility] 08-31-2023 15:55-0400 Body temperature 96.9 [degF] Dr. Rios Downey Work Phone: [facility] 08-31-2023 15:55-0400 Diastolic blood pressure 83 mm[Hg] Dr. Rios Downey Work Phone: [facility] 08-31-2023 15:55-0400 Heart rate 60 /min Dr. Rios Downey Work Phone: [facility] 08-31-2023 15:55-0400 Inhaled oxygen flow rate 2 L/min Dr. Rios Downey Work Phone: [facility] 08-31-2023 15:55-0400 Respiratory rate 18 /min Dr. Rios Downey Work Phone: [facility] 08-31-2023 15:55-0400 SaO2% (BldA) [Mass fraction] 93 % Dr. Rios Downey Work Phone: [facility] 08-31-2023 15:55-0400 Systolic blood pressure 158 mm[Hg] Dr. Rios Downey Work Phone: [facility] 08-22-2023 15:36-0400 Body temperature 97.8 [degF] Dr. Rios Downey Work Phone: [facility] 08-22-2023 15:36-0400 Diastolic blood pressure 60 mm[Hg] Dr. Rios Downey Work Phone: [facility] 08-22-2023 15:36-0400 Heart rate 71 /min Dr. Rios Downey Work Phone: [facility] 08-22-2023 15:36-0400 Inhaled oxygen flow rate 3 L/min Dr. Rios Downey Work Phone: [facility] 08-22-2023 15:36-0400 Respiratory rate 16 /min Dr. Rios Downey Work Phone: [facility] 08-22-2023 15:36-0400 SaO2% (BldA) [Mass fraction] 100 % Dr. Rios Downey Work Phone: [facility] 08-22-2023 15:36-0400 Systolic blood pressure 124 mm[Hg] Dr. Rios Downey Work Phone: [facility] 08-22-2023 04:29-0400 Body mass index (BMI) [Ratio] 41.1 kg/m2 Dr. Rios Downey Work Phone: [facility] 08-22-2023 04:29-0400 Body weight 112.[address] Rios Downey Work Phone: [facility] 08-19-2023 11:06-0400 Body height 165.[address] Rios Downey Work Phone: [facility] 08-18-2023 16:35-0400 Diastolic blood pressure 52 mm[Hg] Dr. Rios Downey Work Phone: [facility] 08-18-2023 16:35-0400 Heart rate 61 /min Dr. Rios Downey Work Phone: [facility] 08-18-2023 16:35-0400 Respiratory rate 19 /min Dr. Rios Downey Work Phone: [facility] 08-18-2023 16:35-0400 SaO2% (BldA) [Mass fraction] 98 % Dr. Rios Downey Work Phone: [facility] 08-18-2023 16:35-0400 Systolic blood pressure 119 mm[Hg] Dr. Rios Downey Work Phone: [facility] 08-18-2023 15:00-0400 Body temperature 97.6 [degF] Dr. Rios Downey Work Phone: [facility] 08-18-2023 12:57-0400 Inhaled oxygen flow rate 4 L/min Dr. Rios Downey Work Phone: [facility] 08-18-2023 11:52-0400 Body height 165.[address] Rios Downey Work Phone: [facility] 08-18-2023 11:52-0400 Body mass index (BMI) [Ratio] 45.4 kg/m2 Dr. Rios Downey Work Phone: [facility] 08-18-2023 11:52-0400 Body weight 123.[address] Rios Downey Work Phone: [facility] 08-17-2023 17:59-0400 Body mass index (BMI) [Ratio] 39.9 kg/m2 Dr. Rios Downey Work Phone: [facility] 08-17-2023 17:59-0400 Body weight 108.[address] Rios Downey Work Phone: [facility] 08-17-2023 16:00-0400 Diastolic blood pressure 71 mm[Hg] Dr. Rios Downey Work Phone: [facility] 08-17-2023 16:00-0400 Heart rate 64 /min Dr. Rios Downey Work Phone: [facility] 08-17-2023 16:00-0400 Inhaled oxygen flow rate 4 L/min Dr. Rios Downey Work Phone: [facility] 08-17-2023 16:00-0400 Respiratory rate 16 /min Dr. Rios Downey Work Phone: [facility] 08-17-2023 16:00-0400 SaO2% (BldA) [Mass fraction] 99 % Dr. Rios Downey Work Phone: [facility] 08-17-2023 16:00-0400 Systolic blood pressure 117 mm[Hg] Dr. Rios Downey Work Phone: [facility] 08-16-2023 21:12-0400 Body temperature 98.2 [degF] Dr. Rios Downey Work Phone: [facility] 08-10-2023 20:37-0400 Inhaled oxygen flow rate 4 L/min Dr. Rios Downey Work Phone: [facility] 08-10-2023 20:37-0400 SaO2% (BldA) [Mass fraction] 92 % Dr. Rios Downey Work Phone: [facility] 08-10-2023 20:14-0400 Heart rate 81 /min Dr. Rios Downey Work Phone: [facility] 08-10-2023 20:14-0400 Respiratory rate 18 /min Dr. Rios Downey Work Phone: [facility] 08-10-2023 15:40-0400 Body temperature 97.3 [degF] Dr. Rios Downey Work Phone: [facility] 08-10-2023 15:40-0400 Diastolic blood pressure 74 mm[Hg] Dr. Rios Downey Work Phone: [facility] 08-10-2023 15:40-0400 Systolic blood pressure 147 mm[Hg] Dr. Rios Downey Work Phone: [facility] 08-10-2023 14:42-0400 Body height 165.[address] Rios Downey Work Phone: [facility] 08-10-2023 14:42-0400 Body weight 111.[address] Rios Downey Work Phone: [facility] 08-09-2023 06:00-0400 Body mass index (BMI) [Ratio] 40.8 kg/m2 Dr. Rios Downey Work Phone: [facility] 07-27-2023 07:09-0400 Inhaled oxygen flow rate 4 L/min Dr. Rios Downey Work Phone: [facility] 07-27-2023 07:09-0400 SaO2% (BldA) [Mass fraction] 99 % Dr. Rios Downey Work Phone: [facility] 07-27-2023 05:52-0400 Body mass index (BMI) [Ratio] 40.7 kg/m2 Dr. Rios Downey Work Phone: [facility] 07-27-2023 05:52-0400 Body weight 110.[address] Rios Downey Work Phone: [facility] 07-26-2023 16:00-0400 Body temperature 96.1 [degF] Dr. Rios Downey Work Phone: [facility] 07-26-2023 16:00-0400 Diastolic blood pressure 57 mm[Hg] Dr. Rios Downey Work Phone: [facility] 07-26-2023 16:00-0400 Heart rate 60 /min Dr. Rios Downey Work Phone: [facility] 07-26-2023 16:00-0400 Respiratory rate 16 /min Dr. Rios Downey Work Phone: [facility] 07-26-2023 16:00-0400 Systolic blood pressure 116 mm[Hg] Dr. Rios Downey Work Phone: [facility] 07-20-2023 16:11-0400 Body height 165.[address] Rios Downey Work Phone: [facility] 07-11-2023 11:29-0400 Inhaled oxygen flow rate 4 L/min Dr. Rios Downey Work Phone: [facility] 07-11-2023 10:49-0400 SaO2% (BldA) [Mass fraction] 98 % Dr. Rios Downey Work Phone: [facility] 07-10-2023 16:00-0400 Body temperature 96.9 [degF] Dr. Rios Downey Work Phone: [facility] 07-10-2023 16:00-0400 Diastolic blood pressure 66 mm[Hg] Dr. Rios Downey Work Phone: [facility] 07-10-2023 16:00-0400 Heart rate 68 /min Dr. Rios Downey Work Phone: [facility] 07-10-2023 16:00-0400 Respiratory rate 18 /min Dr. Rios Downey Work Phone: [facility] 07-10-2023 16:00-0400 Systolic blood pressure 159 mm[Hg] Dr. Rios Downey Work Phone: [facility] 07-09-2023 13:20-0400 Body mass index (BMI) [Ratio] 44.1 kg/m2 Dr. Rios Downey Work Phone: [facility] 07-09-2023 13:20-0400 Body weight 120.[address] Rios Downey Work Phone: [facility] 07-06-2023 15:30-0400 Body height 165.[address] Rios Downey Work Phone: [facility] 07-04-2023 19:55-0400 Inhaled oxygen concentration 92 % Dr. Rios Downey Work Phone: [facility] 07-03-2023 09:00-0400 Inhaled oxygen flow rate 4 L/min Dr. Rios Downey Work Phone: [facility] 07-03-2023 08:37-0400 Body temperature 97.8 [degF] Dr. Rios Downey Work Phone: [facility] 07-03-2023 08:37-0400 Diastolic blood pressure 75 mm[Hg] Dr. Rios Downey Work Phone: [facility] 07-03-2023 08:37-0400 Heart rate 60 /min Dr. Rios Downey Work Phone: [facility] 07-03-2023 08:37-0400 Respiratory rate 17 /min Dr. Rios Downey Work Phone: [facility] 07-03-2023 08:37-0400 SaO2% (BldA) [Mass fraction] 98 % Dr. Rios Downey Work Phone: [facility] 07-03-2023 08:37-0400 Systolic blood pressure 157 mm[Hg] Dr. Rios Downey Work Phone: [facility] 07-03-2023 04:47-0400 Body mass index (BMI) [Ratio] 44.1 kg/m2 Dr. Rios Downey Work Phone: [facility] 07-03-2023 04:47-0400 Body weight 120.[address] Rios Downey Work Phone: [facility] 07-01-2023 14:18-0400 Body height 165.[address] Rios Downey Work Phone: [facility] 06-29-2023 14:24-0400 Body temperature 97 [degF] [facility] 06-29-2023 14:24-0400 Diastolic blood pressure 63 mm[Hg] [facility] 06-29-2023 14:24-0400 Heart rate 66 /min [facility] 06-29-2023 14:24-0400 Inhaled oxygen flow rate 4 L/min [facility] 06-29-2023 14:24-0400 Respiratory rate 22 /min [facility] 06-29-2023 14:24-0400 SaO2% (BldA) [Mass fraction] 96 % [facility] 06-29-2023 14:24-0400 Systolic blood pressure 156 mm[Hg] [facility] 06-29-2023 12:55-0400 Body height 165.1 cm [facility] 06-29-2023 12:55-0400 Body mass index (BMI) [Ratio] 44.1 kg/m2 [facility] 06-29-2023 12:55-0400 Body weight 120.3 kg [facility] 01-31-2023 15:27-0500 Body height 165.[address] Jennifer Lu Work Phone: [facility] 01-31-2023 15:27-0500 Body mass index (BMI) [Ratio] 42.5 kg/m2 Dr. Jennifer Lu Work Phone: [facility] 01-31-2023 15:27-0500 Body weight 116.[address] Jennifer Lu Work Phone: [facility] 01-31-2023 15:27-0500 Diastolic blood pressure 78 mm[Hg] Dr. Jennifer Lu Work Phone: [facility] 01-31-2023 15:27-0500 Heart rate 74 /min Dr. Jennifer Lu Work Phone: [facility] 01-31-2023 15:27-0500 Inhaled oxygen flow rate 2 L/min Dr. Jennifer Lu Work Phone: [facility] 01-31-2023 15:27-0500 Respiratory rate 20 /min Dr. Jennifer Lu Work Phone: [facility] 01-31-2023 15:27-0500 Systolic blood pressure 129 mm[Hg] Dr. Jennifer Lu Work Phone: [facility] 10-07-2022 13:47-0500 Body height 165.[address] Jennifer Lu Work Phone: [facility] 10-07-2022 13:47-0500 Body mass index (BMI) [Ratio] 44.1 kg/m2 Dr. Jennifer Lu Work Phone: [facility] 10-07-2022 13:47-0500 Body temperature 98.4 [degF] Dr. Jennifer Lu Work Phone: [facility] 10-07-2022 13:47-0500 Body weight 120.[address] Jennifer Lu Work Phone: [facility] 10-07-2022 13:47-0500 Diastolic blood pressure 55 mm[Hg] Dr. Jennifer Lu Work Phone: [facility] 10-07-2022 13:47-0500 Heart rate 62 /min Dr. Jennifer Lu Work Phone: [facility] 10-07-2022 13:47-0500 Inhaled oxygen flow rate 2 L/min Dr. Jennifer Lu Work Phone: [facility] 10-07-2022 13:47-0500 Respiratory rate 16 /min Dr. Jennifer Lu Work Phone: [facility] 10-07-2022 13:47-0500 SaO2% (BldA) [Mass fraction] 99 % Dr. Jennifer Lu Work Phone: [facility] 10-07-2022 13:47-0500 Systolic blood pressure 112 mm[Hg] Dr. Jennifer Lu Work Phone: [facility] 07-12-2022 16:10-0400 Body height 165.[address] Jennifer Lu Work Phone: [facility] Work Phone: 07-12-2022 16:10-0400 Body temperature 97 [degF] Dr. Jennifer Lu Work Phone: [facility] Work Phone: 07-12-2022 16:10-0400 Diastolic blood pressure 58 mm[Hg] Dr. Jennifer Lu Work Phone: [facility] Work Phone: 07-12-2022 16:10-0400 Heart rate 61 /min Dr. Jennifer Lu Work Phone: [facility] Work Phone: 07-12-2022 16:10-0400 Inhaled oxygen flow rate 4 L/min Dr. Jennifer Lu Work Phone: [facility] Work Phone: 07-12-2022 16:10-0400 Respiratory rate 18 /min Dr. Jennifer Lu Work Phone: [facility] Work Phone: 07-12-2022 16:10-0400 SaO2% (BldA) [Mass fraction] 100 % Dr. Jennifer Lu Work Phone: [facility] Work Phone: 07-12-2022 16:10-0400 Systolic blood pressure 131 mm[Hg] Dr. Jennifer Lu Work Phone: [facility] Work Phone: 06-16-2022 15:14-0400 Heart rate 67 /min Dr. Jennifer Lu Work Phone: [facility] Work Phone: 06-16-2022 15:05-0400 Body mass index (BMI) [Ratio] 43.7 kg/m2 Dr. Jennifer Lu Work Phone: [facility] Work Phone: 06-16-2022 15:05-0400 Body weight 119.[address] Jennifer Lu Work Phone: [facility] Work Phone: 06-16-2022 15:05-0400 Diastolic blood pressure 64 mm[Hg] Dr. Jennifer Lu Work Phone: [facility] Work Phone: 06-16-2022 15:05-0400 Inhaled oxygen flow rate 4 L/min Dr. Jennifer Lu Work Phone: [facility] Work Phone: 06-16-2022 15:05-0400 Respiratory rate 20 /min Dr. Jennifer uL Work Phone: [facility] Work Phone: 06-16-2022 15:05-0400 Systolic blood pressure 102 mm[Hg] Dr. Jennifer Lu Work Phone: [facility] Work Phone: 06-14-2022 15:09-0400 Body height 165.[address] Jennifer Lu Work Phone: [facility] Work Phone: 06-14-2022 15:09-0400 Body mass index (BMI) [Ratio] 44.7 kg/m2 Dr. Jennifer Lu Work Phone: [facility] Work Phone: 06-14-2022 15:09-0400 Body temperature 97.9 [degF] Dr. Jennifer Lu Work Phone: [facility] Work Phone: 06-14-2022 15:09-0400 Body weight 122.[address] Jennifer Lu Work Phone: [facility] Work Phone: 06-14-2022 15:09-0400 Diastolic blood pressure 39 mm[Hg] Dr. Jennifer Lu Work Phone: [facility] Work Phone: 06-14-2022 15:09-0400 Heart rate 56 /min Dr. Jennifer Lu Work Phone: [facility] Work Phone: 06-14-2022 15:09-0400 Inhaled oxygen flow rate 4 L/min Dr. Jennifer Lu Work Phone: [facility] Work Phone: 06-14-2022 15:09-0400 Respiratory rate 18 /min Dr. Jennifer Lu Work Phone: [facility] Work Phone: 06-14-2022 15:09-0400 SaO2% (BldA) [Mass fraction] 100 % Dr. Jennifer Lu Work Phone: [facility] Work Phone: 06-14-2022 15:09-0400 Systolic blood pressure 99 mm[Hg] Dr. Jennifer Lu Work Phone: [facility] Work Phone: 04-16-2022 13:16-0400 Inhaled oxygen flow rate 4 L/min Dr. Jennifer Lu Work Phone: [facility] Work Phone: 04-16-2022 13:16-0400 SaO2% (BldA) [Mass fraction] 95 % Dr. Jennifer Lu Work Phone: [facility] Work Phone: 04-16-2022 12:47-0400 Body height 165.[address] Jennifer Lu Work Phone: [facility] Work Phone: 04-16-2022 12:47-0400 Body mass index (BMI) [Ratio] 43.7 kg/m2 Dr. Jennifer Lu Work Phone: [facility] Work Phone: 04-16-2022 12:47-0400 Body temperature 97.5 [degF] Dr. Jennifer Lu Work Phone: [facility] Work Phone: 04-16-2022 12:47-0400 Body weight 119.[address] Jennifer Lu Work Phone: [facility] Work Phone: 04-16-2022 12:47-0400 Diastolic blood pressure 70 mm[Hg] Dr. Jennifer Lu Work Phone: [facility] Work Phone: 04-16-2022 12:47-0400 Heart rate 58 /min Dr. Jennifer Lu Work Phone: [facility] Work Phone: 04-16-2022 12:47-0400 Systolic blood pressure 110 mm[Hg] Dr. Jennifer Lu Work Phone: [facility] Work Phone: 03-15-2022 14:47-0400 Body height 165.[address] Jennifer uL Work Phone: [facility] Work Phone: 03-15-2022 14:47-0400 Body mass index (BMI) [Ratio] 41.5 kg/m2 Dr. Jennifer Lu Work Phone: [facility] Work Phone: 03-15-2022 14:47-0400 Body temperature 97.9 [degF] Dr. Jennifer Lu Work Phone: [facility] Work Phone: 03-15-2022 14:47-0400 Body weight 113.[address] Jennifer Lu Work Phone: [facility] Work Phone: 03-15-2022 14:47-0400 Diastolic blood pressure 61 mm[Hg] Dr. Jennifer Lu Work Phone: [facility] Work Phone: 03-15-2022 14:47-0400 Heart rate 74 /min Dr. Jennifer Lu Work Phone: [facility] Work Phone: 03-15-2022 14:47-0400 Inhaled oxygen flow rate 4 L/min Dr. Jennifer Lu Work Phone: [facility] Work Phone: 03-15-2022 14:47-0400 Respiratory rate 20 /min Dr. Jennifer Lu Work Phone: [facility] Work Phone: 03-15-2022 14:47-0400 SaO2% (BldA) [Mass fraction] 100 % Dr. Jennifer Lu Work Phone: [facility] Work Phone: 03-15-2022 14:47-0400 Systolic blood pressure 128 mm[Hg] Dr. Jennifer Lu Work Phone: [facility] Work Phone: 12-07-2021 14:36-0500 Body mass index (BMI) [Ratio] 42.9 kg/m2 Dr. Jennifer Lu Work Phone: [facility] Work Phone: 12-07-2021 14:36-0500 Body weight 117.[address] Jennifer Lu Work Phone: [facility] Work Phone: 12-07-2021 14:36-0500 Diastolic blood pressure 72 mm[Hg] Dr. Jennifer Lu Work Phone: [facility] Work Phone: 12-07-2021 14:36-0500 Heart rate 49 /min Dr. Jennifer Lu Work Phone: [facility] Work Phone: 12-07-2021 14:36-0500 Systolic blood pressure 134 mm[Hg] Dr. Jennifer Lu Work Phone: [facility] Work Phone: Encounters Encounter Date Encounter Type Care Provider Facility Start: 05-22-2025 End: 05-22-[address] Pepe Au MD -[facility] Work Phone: Start: 05-22-2025 End: 05-22-[address] Rios Downey DO Work Phone: [facility] Work Phone: Start: 04-25-2025 End: 04-25-[address] Pepe Au MD -[facility] Work Phone: Start: 04-25-2025 End: 04-25-[address] Rios Downey DO Work Phone: [facility] Work Phone: Start: 04-15-2025 End: 04-15-[address] Pepe Au MD -[facility] [place] Work Phone: Start: 04-15-2025 End: 04-15-2025 ambulatory Pepe Au Facility:[facility] Start: 03-28-2025 End: 03-28-[address] Pepe Au MD -[facility] Work Phone: Start: 03-28-2025 End: 03-28-2025 ambulatory Pepe Au Facility:[facility] Start: 03-14-2025 End: 03-14-2025 Patient encounter procedure Gosia Saenz [employer] [facility] Work Phone: Start: 03-14-2025 End: 03-14-2025 ambulatory [facility] Start: 02-26-2025 End: 02-26-[address] Pepe Au MD -[facility] Work Phone: Start: 02-26-2025 End: 02-26-[address] Rios Downey DO Work Phone: [facility] Work Phone: Start: 01-29-2025 End: 01-29-[address] Pepe Au MD -[facility] Work Phone: Start: 01-29-2025 End: 01-29-2025 ambulatory [facility] Start: 01-01-2025 End: 01-01-[address] Pepe Au MD -[facility] Work Phone: Start: 01-01-2025 End: 01-01-2025 ambulatory [facility] Start: 12-04-2024 End: 12-04-[address] Pepe Au MD -[facility] Work Phone: Start: 12-04-2024 End: 12-04-2024 ambulatory [facility] Start: 11-07-2024 Encounter for genera l adult medical examination without abnormal findings [facility] Start: 10-31-2024 End: 10-31-[address] Pepe Au MD -[facility] Work Phone: Start: 10-31-2024 End: 10-31-2024 ambulatory Rios Maloneins Facility:[facility] Start: 10-22-2024 End: 10-22-2024 ambulatory [facility] Facility:[facility] Start: 10-15-2024 End: 10-15-2024 ambulatory Rios Downey Facility:[facility] Start: 10-10-2024 ambulatory Rios Downey Facility: [facility] Start: 10-10-2024 End: 10-10-2024 ambulatory Rios Downey Facility:[facility] Start: 10-02-2024 End: 10-02-2024 ambulatory [facility] Facility:[facility] Start: 09-24-2024 End: 09-24-2024 ambulatory Rios Downey Facility:[facility] Start: 08-30-2024 End: 08-30-2024 ambulatory [facility] Facility:[facility] Start: 08-02-2024 End: 08-02-2024 ambulatory [facility] Facility:[facility] Start: 07-04-2024 End: 07-04-[facility] Start: 06-06-2024 End: 06-06-[facility] Start: 05-30-2024 End: 05-30-2024 ambulatory [facility] Facility:[facility] Start: 03-23-2024 End: 03-23-[address] Rios Downey Work Phone: [facility] Work Phone: Start: 03-22-2024 End: 03-22-[address] Rios Downey Work Phone: [facility] Work Phone: Start: 03-22-2024 End: 03-22-[address] Rios Downey Work Phone: [facility] Work Phone: Start: 03-14-2024 End: 03-14-[address] [facility] Work Phone: Start: 03-14-2024 End: 03-14-2024 [facility] Start: 02-19-2024 End: 02-19-2024 Emergency department patient visit [facility] Work Phone: Start: 02-15-2024 End: 02-16-2024 Emergency department patient visit [facility] Work Phone: Start: 02-15-2024 End: 02-15-[address] [facility] Work Phone: Start: 02-15-2024 End: 02-15-2024 [facility] Start: 01-18-2024 End: 01-18-[address] Rios Downey Work Phone: [facility] Work Phone: Start: 01-18-2024 End: 01-18-[address] [facility] Dow[facility] Start: 12-21-2023 End: 12-21-[address] [facility] Dow[facility] Start: 12-02-2023 End: 12-02-[address] Rios Downey Work Phone: [facility] Work Phone: Start: 11-23-2023 End: 11-23-[address] Rios Downey Work Phone: [facility] Work Phone: Start: 11-23-2023 End: 11-23-[address] Rios Downey [facility] Start: 11-23-2023 End: 11-23-2023 Dr. Rios Downey Work Phone: [facility] Work Phone: Start: 10-26-2023 End: 10-26-[address] Rios Downey Work Phone: [facility] Work Phone: Start: 10-26-2023 End: 10-26-[address] Rios Downey Work Phone: [facility] Out Work Phone: Start: 10-26-2023 End: 10-26-2023 Dr. Rios Downey Work Phone: [facility] Work Phone: Start: 10-05-2023 End: 10-05-[address] Rios Downey Work Phone: [facility] Work Phone: Start: 10-05-2023 End: 10-05-2023 Dr. [facility] Work Phone: Start: 09-28-2023 End: 09-28-[address] Rios Downey Work Phone: [facility] Work Phone: Start: 09-28-2023 End: 09-28-[address] Rios Downey Work Phone: [facility] Out Work Phone: Start: 09-28-2023 End: 09-28-2023 Dr. Rios Downey Work Phone: [facility] Out Work Phone: Start: 09-22-2023 Non-patient / Non-visit Dr. Carlos Downey Work Phone: [facility] Work Phone: Start: 09-22-2023 Dr. Rios Malone ins Work Phone: [facility] Work Phone: Start: 09-22-2023 Non-patient / Non-visit Dr. Carlos Downey Work Phone: [facility] Start: 09-22-2023 Dr. Rios Malone ins Work Phone: [facility] Start: 09-21-2023 Non-patient / Non-visit Dr. Carlos Downey Work Phone: [facility] Work Phone: Start: 09-21-2023 Dr. Rios Malone ins Work Phone: [facility] Work Phone: Start: 09-21-2023 Non-patient / Non-visit Dr. Carlos Downey Work Phone: [facility] Start: 09-21-2023 Dr. Rios Malone ins Work Phone: [facility] Start: 09-20-2023 Dr. Rios Malone ins Work Phone: [facility] Start: 09-20-2023 Dr. Rios Malone ins Work Phone: [facility] Work Phone: Start: 09-19-2023 Dr. Rios Malone ins Work Phone: [facility] Work Phone: Start: 09-18-2023 Dr. Rios Malone ins Work Phone: [facility] Work Phone: Start: 09-17-2023 Dr. Rios Malone ins Work Phone: [facility] Work Phone: Start: 09-16-2023 End: 09-22-2023 Evaluation and management of inpatient Dr. Rios Downey Work Phone: [facility] Work Phone: Start: 09-16-2023 End: 09-22-2023 Dr. Rios Downey Work Phone: [facility]-Progressive Care Unit Work Phone: Start: 08-31-2023 End: 08-31-2023 Dr. Rios Downey Work Phone: [facility]-Emergency Department Work Phone: Start: 08-22-2023 Dr. Rios winters Work Phone: [facility] Work Phone: Start: 08-21-2023 Dr. Rios winters Work Phone: [facility] Work Phone: Start: 08-20-2023 Dr. Rios winters Work Phone: [facility] Work Phone: Start: 08-19-2023 Dr. Rios winters Work Phone: [facility] Work Phone: Start: 08-18-2023 Evaluation and management of inpatient Dr. Rios Downey Work Phone: [facility]-Progressive Care Unit Work Phone: Start: 08-18-2023 End: 08-22-2023 Evaluation and management of inpatient Dr. Rios Downey Work Phone: [facility] Work Phone: Start: 08-18-2023 End: 08-22-2023 Dr. Rios Downey Work Phone: [facility]-Progressive Care Unit Work Phone: Start: 08-18-2023 Dr. Rios winters Work Phone: [facility]Emergency Department Work Phone: Start: 08-06-2023 End: 08-06-[address] Rios Downey Work Phone: [facility] Work Phone: Start: 08-06-2023 End: 08-06-[address] Rios Downey [facility] Phone[facility] Work Phone: Start: 08-06-2023 End: 08-06-2023 Dr. Rios Downey Work Phone: [facility] Work Phone: Start: 07-23-2023 End: 07-23-[address] Rios Downey Work Phone: [facility], [facility] Work Phone: Start: 07-23-2023 End: 07-23-2023 Dr. Rios Downey Work Phone: [facility], [facility] Work Phone: Start: 07-22-2023 End: 07-22-[address] Rios Downey Work Phone: [facility] Work Phone: Start: 07-22-2023 End: 07-22-[address] Rios Downey Work Phone: [facility] Work Phone: Start: 07-22-2023 End: 07-22-2023 Dr. Rios Downey Work Phone: [facility] Work Phone: Start: 07-06-2023 End: 07-06-[address] Rios Downey Work Phone: [facility] Work Phone: Start: 07-06-2023 End: 07-06-[address] Rios Downey Work Phone: [facility] Work Phone: Start: 07-06-2023 End: 07-06-2023 Dr. Rios Downey Work Phone: [facility] Work Phone: Start: 07-03-2023 End: 08-18-2023 Evaluation and management of inpatient Dr. Rios Downey [facility] Start: 07-03-2023 End: 08-18-2023 Dr. Rios Downey [facility] Phone[facility] Start: 07-03-2023 Non-patient / [...] Non-visit Dr. Carlos Downey Work Phone: [facility] [facility] Work Phone: Start: 06-30-2023 Dr. Rios Malone ins Work Phone: [facility] Work Phone: Start: 06-30-2023 End: 07-03-2023 Evaluation and management of inpatient Dr. Rios Downey Work Phone: [facility]-Progressive Care Unit Work Phone: Start: 06-30-2023 End: 07-03-2023 Dr. Rios Downey Work Phone: [facility] Work Phone: Start: 06-30-2023 Non-patient / Non-visit Dr. Carlos Downey Work Phone: [facility] Start: 06-30-2023 Dr. Rios Malone ins Work Phone: [facility] Start: 06-29-2023 Non-patient / Non-visit Dr. Carlos Downey Work Phone: [facility] Start: 06-29-2023 Dr. Rios winters Work Phone: [facility] Start: 06-29-2023 Non-patient / Non-visit Dr. Carlos Downey Work Phone: [facility] Work Phone: Start: 06-29-2023 Dr. Rios winters Work Phone: [facility] [facility] Work Phone: Start: 06-29-2023 Evaluation and management of inpatient [facility] Work Phone: Start: 06-29-2023 observation encounter [facility] Work Phone: Start: 06-13-2023 End: 06-13-[address] [facility] Work Phone: Start: 06-13-2023 End: 06-13-2023 [facility] Start: 06-13-2023 End: 06-13-2023 Dr. Rios Downey Work Phone: [facility] Out Work Phone: Start: 05-26-2023 End: 05-26-[address] [facility] Work Phone: Start: 05-26-2023 End: 05-26-2023 Patient encounter procedure [facility] Work Phone: Start: 05-26-2023 End: 05-26-2023 Dr. Rios Downey Work Phone: [facility] Work Phone: Start: 05-16-2023 End: 05-16-[address] Rios Downey Work Phone: [facility] Work Phone: Start: 05-16-2023 End: 05-16-[address] Rios Downey Work Phone: [facility] Out Start: 05-16-2023 End: 05-16-2023 Dr. Rios Downey Work Phone: [facility] Work Phone: Start: 05-12-2023 End: 05-17-2023 ambulatory RIOS DOWNEY DO Facility:B Start: 05-12-2023 End: 05-16-2023 Outreach Lab JENNIFER LU MD [facility] Start: 04-18-2023 End: 04-18-[address] Rios Downey Work Phone: [facility]-Medical Out Start: 04-18-2023 End: 04-18-2023 Dr. Rios Downey Work Phone: [facility] Work Phone: Start: 03-21-2023 End: 03-21-[address] Rios Downey Work Phone: [facility] Work Phone: Start: 03-21-2023 End: 03-21-[address] Rios Downey Work Phone: [facility]Medical Out Start: 03-21-2023 End: 03-21-2023 Dr. Rios Downey Work Phone: [facility] Work Phone: Start: 02-21-2023 End: 02-21-[address] Rios Downey Work Phone: [facility] Work Phone: Start: 02-21-2023 End: 02-21-[address] Rios Downey Work Phone: [facility] Out Start: 01-31-2023 End: 01-31-[address] Jennifer Lu Work Phone: [facility] Work Phone: Start: 01-31-2023 End: 01-31-[address] Jennifer Lu Work Phone: [facility] Start: 01-31-2023 End: 01-31-[address] Jennifer Lu Work Phone: [facility] Start: 01-24-2023 End: 01-24-[address] Jennifer Lu Work Phone: [facility] Work Phone: Start: 01-24-2023 End: 01-24-[address] Jennifer Lu Work Phone: [facility] Out Start: 12-28-2022 End: 12-28-[address] Jennifer Lu Work Phone: [facility] Work Phone: Start: 12-28-2022 End: 12-28-[address] Jennifer Lu Work Phone: [facility] Out Start: 12-02-2022 End: 12-02-[address] Jennifer Lu Work Phone: [facility] Work Phone: Start: 12-02-2022 End: 12-02-[address] Jennifer Lu Work Phone: [facility] Out Start: 11-24-2022 End: 11-24-[address] Jennifer Lu Work Phone: [facility] Start: 11-01-2022 End: 11-01-[address] Jennifer Lu Work Phone: [facility] Work Phone: Start: 11-01-2022 End: 11-01-[address] Jennifer Lu [facility] Start: 10-07-2022 End: 10-07-[address] Jennifer Lu Work Phone: [facility] Start: 10-04-2022 End: 10-04-[address] Jennifer Lu [facility] Start: 09-29-2022 End: 09-29-[address] Jennifer Lu Work Phone: [facility] Work Phone: Start: 09-29-2022 End: 09-29-[address] Jennifer Lu Work Phone: [facility] Start: 09-06-2022 End: 09-06-[address] Jennifer Lu Work Phone: [facility] Work Phone: Start: 09-06-2022 End: 09-06-[address] Jennifer Lu [facility] Start: 08-27-2022 End: 08-27-[address] Jennifer Lu Work Phone: [facility] Work Phone: Start: 08-27-2022 End: 08-27-[address] Jennifer Lu Work Phone: [facility] Start: 08-09-2022 End: 08-09-[address] Jennifer Lu Work Phone: [facility] Work Phone: Start: 08-09-2022 End: 08-09-[address] Jennifer Lu [facility] Start: 07-16-2022 End: 07-16-[address] Jennifer Lu Work Phone: [facility] Work Phone: Start: 07-16-2022 End: 07-16-[address] Jennifer Lu Work Phone: [facility] Start: 07-12-2022 End: 07-12-[address] Jennifer Lu [facility] Start: 07-09-2022 End: 07-09-[address] Jennifer Lu Work Phone: [facility] Start: 06-18-2022 End: 06-18-[address] Jennifer Lu Work Phone: [facility] Start: 06-16-2022 End: 06-16-[address] Jennifer Lu Work Phone: [facility] Start: 06-14-2022 End: 06-14-[address] Jennifer Lu [facility] Start: 05-18-2022 End: 05-18-[address] Jennifer Lu Work Phone: [facility] Start: 05-17-2022 End: 05-17-[address] Jennifer Lu [facility] Start: 04-16-2022 End: 04-16-[address] Jennifer Lu [facility] Phone[facility] Start: 04-12-2022 End: 04-12-2022 [facility] Start: 03-29-2022 End: 03-29-[address] Jennifer Lu Work Phone: [facility] Start: 03-15-2022 End: 03-15-[address] Jennifer Lu [facility] Start: 02-15-2022 End: 02-15-[address] Jennifer Lu [facility] Start: 01-25-2022 End: 01-25-[address] Jennifer Lu Work Phone: [facility] Start: 01-18-2022 End: 01-18-[address] Jennifer Lu [facility] Start: 12-21-2021 End: 12-21-[address] [facility] Lu Work Phone: [facility] Start: 12-07-2021 End: 12-07-[address] Jennifer Lu Work Phone: [facility] Virt Procedures Date Procedure Procedure [...] Date Care Activity Detail Author Start: 02-19-2024 [facility] Start: 02-16-2024 [facility] Start: 09-28-2023 [facility] Start: 09-28-2023 Ther proph/dx njx iv push single/1st sbst/drug [facility] Start: 09-22-2023 Patient discharge [facility] Start: 09-20-2023 Dual pressure sponta neous ventilation support [facility] Start: 09-20-2023 Consultation [facility] Start: 09-20-[address] [facility] Start: 09-18-2023 End: 09-19-2023 [facility] Start: 09-18-2023 [facility] Start: 09-16-2023 Dual pressure sponta neous ventilation support [facility] Start: 09-16-2023 Following clinical p athway protocol [facility] Start: 09-16-2023 Application of elastic bandage [facility] Start: 09-16-2023 Assessment of risk o f venous thromboembolism [facility] Start: 09-16-2023 Care regimes management [facility] Start: 09-16-2023 Continuous pulse oximetry [facility] Start: 09-16-2023 Elevation of affected extremity [facility] Start: 09-16-2023 Fall prevention [facility] Start: 09-16-2023 Inhalation therapy procedure [facility] Start: 09-16-2023 Insertion of cathete r into peripheral vein [facility] Start: 09-16-2023 Introduction of urinary catheter [facility] Start: 09-16-2023 Measuring intake and output [facility] Start: 09-16-2023 Notification of physician [facility] Start: 09-16-2023 Oxygen therapy [facility] Start: 09-16-2023 Patient education [facility] Start: 09-16-2023 Providing care accor ding to standard [facility] Start: 09-16-2023 Provision of activity privileges [facility] Start: 09-16-2023 Referral to occupati onal therapist [facility] Start: 09-16-[address] [facility] Start: 09-16-2023 SARS-CoV-2 [facility] Start: 09-16-2023 End: 09-16-2023 [facility] Start: 09-16-2023 Verification routine [facility] Start: 09-16-[address] [facility] Start: 09-16-2023 Hospital admission, emergency, from emergency room, medical nature [facility] Start: 08-22-2023 Patient discharge [facility] Start: 08-21-2023 [facility] Start: 08-19-2023 Development of care plan [facility] Start: 08-19-2023 [facility] Start: 08-18-2023 Aspiration precautions [facility] Start: 08-18-2023 Assessment of risk o f venous thromboembolism [facility] Start: 08-18-2023 Cardiac monitoring [facility] Start: 08-18-2023 Care regimes management [facility] Start: 08-18-2023 Catheterization of vein [facility] Start: 08-18-2023 Continuous pulse oximetry [facility] Start: 08-18-2023 Elevation of head of bed [facility] Start: 08-18-2023 Exercises [facility] Start: 08-18-2023 Fall prevention [facility] Start: 08-18-[address] anned interventions [facility] Start: 08-18-2023 Inhalation therapy procedure [facility] Start: 08-18-2023 Insertion of cathete r into peripheral vein [facility] Start: 08-18-2023 Introduction of urinary catheter [facility] Start: 08-18-2023 Measuring intake and output [facility] Start: 08-18-2023 Notification of physician [facility] Start: 08-18-2023 Oxygen therapy [facility] Start: 08-18-2023 Patient referral to dietitian [facility] Start: 08-18-2023 Providing care accor ding to standard [facility] Start: 08-18-2023 Provision of activity privileges [facility] Start: 08-18-2023 Referral to occupati onal therapist [facility] Start: 08-18-[address] [facility] Start: 08-18-2023 Speech therapy assessment [facility] Start: 08-18-2023 Tobacco use cessation education [facility] Start: 08-18-2023 [facility] Start: 08-18-2023 Vital signs measurements [facility] Start: 08-18-2023 Dual pressure sponta neous ventilation support [facility] Start: 08-18-2023 Verification routine [facility] Start: 08-18-2023 Gas panel - Arterial blood [facility] Start: 08-18-[address] [facility] Start: 08-18-2023 Oxygen therapy [facility] Start: 08-18-2023 [facility] Start: 08-18-2023 Wound care [facility] Start: 08-18-2023 Patient discharge [facility] Start: 08-18-2023 [facility] Start: 08-14-2023 SARS-CoV-2 (COVID-19 ) Ag [Presence] in Respiratory specimen by Rapid immunoassay [facility] Start: 08-13-2023 [facility] Start: 08-12-2023 SARS-CoV-2 (COVID-19 ) Ag [Presence] in Respiratory specimen by Rapid immunoassay [facility] Start: 08-02-2023 Speech therapy management [facility] Start: 08-01-2023 Wound care [facility] Start: 08-01-20[address] [facility] Start: 08-01-2023 [facility] Start: 07-31-2023 [facility] Start: 07-29-2023 Developing a treatment plan [facility] Start: 07-29-2023 Development of care plan [facility] Start: 07-27-2023 [facility] Start: 07-25-[address] [facility] Start: 07-18-20[address] Blood chemistry [facility] Start: 07-12-2023 Verification routine [facility] Start: 07-08-2023 Referral to social work supervisor [facility] Start: 07-07-2023 Wound care [facility] Start: 07-06-2023 Wound care [facility] Start: 07-04-2023 Development of care plan [facility] Start: 07-04-2023 Speech therapy management [facility] Start: 07-04-2023 Verification routine [facility] Start: 07-04-2023 Developing a treatment plan [facility] Start: 07-03-2023 End: 07-04-2023 [facility] Start: 07-03-2023 Consultation for treatment [facility] Start: 07-03-2023 Speech therapy assessment [facility] Start: 07-03-2023 Wound care [facility] Start: 07-03-[address] [facility] Start: 07-03-2023 Following clinical p athway protocol [facility] Start: 07-03-2023 Oxygen therapy [facility] Start: 07-03-[address] [facility] Start: 07-03-2023 Measuring intake and output [facility] Start: 07-03-2023 Patient referral to dietitian [facility] Start: 07-03-2023 Referral to occupati onal therapist [facility] Start: 07-03-[address] [facility] Start: 07-03-2023 Vital signs measurements [facility] Start: 07-03-2023 Patient discharge [facility] Start: 07-03-2023 Patient referral to dietitian [facility] Start: 07-03-2023 Speech therapy assessment [facility] Start: 07-03-2023 [facility] Start: 07-01-2023 [facility] Start: 06-30-[address] [facility] Start: 06-30-2023 Thyroid stimulating hormone measurement [facility] Start: 06-29-2023 Ambulation without limitation [facility] Start: 06-29-2023 Assessment of risk o f venous thromboembolism [facility] Start: 06-29-2023 Cardiac monitoring [facility] Start: 06-29-2023 Catheterization of vein [facility] Start: 06-29-2023 Continuous pulse oximetry [facility] Start: 06-29-2023 Elevation of head of bed [facility] Start: 06-29-2023 Exercises [facility] Start: 06-29-[address] anned interventions [facility] Start: 06-29-2023 Insertion of cathete r into peripheral vein [facility] Start: 06-29-2023 Measuring intake and output [facility] Start: 06-29-2023 Notification of physician [facility] Start: 06-29-2023 Oxygen therapy [facility] Start: 06-29-2023 Providing care accor ding to standard [facility] Start: 06-29-2023 Referral to occupati onal therapist [facility] Start: 06-29-[address] [facility] Start: 06-29-2023 Speech therapy assessment [facility] Start: 06-29-2023 Tobacco use cessation education [facility] Start: 06-29-2023 Following clinical p athway protocol [facility] Start: 06-29-2023 End: 06-29-2023 [facility] Start: 06-29-2023 Verification routine [facility] Start: 06-29-[address] [facility] Start: 06-29-2023 Gas panel - Venous blood [facility] Start: 06-29-20[address]xygen therapy [facility] Start: 06-29-2023 [facility] Start: 01-31-2023 [facility] Anion gap measurement [facility] Anion gap measurement [facility] Anion gap measurement [facility] Bilirubin measurement, urine [facility] BUN/Creatinine ratio [facility] BUN/Creatinine ratio [facility] BUN/Creatinine ratio [facility] Calcium [Mass/volume ] in Serum or Plasma [facility] Calcium [Mass/volume ] in Serum or Plasma [facility] Calcium [Mass/volume ] in Serum or Plasma [facility] Carbon dioxide, tota l [Moles/volume] in Serum or Plasma [facility] Carbon dioxide, tota l [Moles/volume] in Serum or Plasma [facility] Carbon dioxide, tota l [Moles/volume] in Serum or Plasma [facility] Chloride [Moles/volu me] in Serum or Plasma [facility] Chloride [Moles/volu me] in Serum or Plasma [facility] Chloride [Moles/volu me] in Serum or Plasma [facility] Creatinine [Moles/vo lume] in Serum or Plasma [facility] Creatinine [Moles/vo lume] in Serum or Plasma [facility] Creatinine [Moles/vo lume] in Serum or Plasma [facility] Glucose [Mass/volume ] in Serum or Plasma [facility] Glucose [Mass/volume ] in Serum or Plasma [facility] Glucose [Mass/volume ] in Serum or Plasma [facility] Hematocrit [Volume F raction] of Blood [facility] Hematocrit [Volume F raction] of Blood [facility] Hematocrit [Volume F raction] of Blood [facility] Hemoglobin [Mass/volume] in Blood [facility] Hemoglobin [Mass/volume] in Blood [facility] Hemoglobin [Mass/volume] in Blood [facility] Hemoglobin [Presence] in Urine [facility] Leukocytes [#/volume] in Blood [facility] Leukocytes [#/volume] in Blood [facility] Leukocytes [#/volume] in Blood [facility] Magnesium [Mass/volu me] in Serum or Plasma [facility] Mean corpuscular hem oglobin concentration determination [facility] Mean corpuscular hem oglobin concentration determination [facility] Mean corpuscular hem oglobin concentration determination [facility] Mean corpuscular hem oglobin determination [facility] Mean corpuscular hem oglobin determination [facility] Mean corpuscular hem oglobin determination [facility] Measurement of keton es in urine using dipstick [facility] Measurement of renal function [facility] Measurement of renal function [facility] Measurement of renal function [facility] Microscopic urinalysis [facility] Neutrophil count [facility] Neutrophil count [facility] Neutrophil count [facility] Neutrophil percent d ifferential count [facility] Neutrophil percent d ifferential count [facility] Neutrophil percent d ifferential count [facility] Patient Education [facility] Work Phone: Patient referral [facility] Work Phone: pH of Urine [facility] Platelets [#/volume] in Blood [facility] Platelets [#/volume] in Blood [facility] Platelets [#/volume] in Blood [facility] Potassium [Moles/vol ume] in Serum or Plasma [facility] Potassium [Moles/vol ume] in Serum or Plasma [facility] Potassium [Moles/vol ume] in Serum or Plasma [facility] Red blood cell count [facility] Red blood cell count [facility] Red blood cell count [facility] Red cell distributio n width determination [facility] Red cell distributio n width determination [facility] Red cell distributio n width determination [facility] Respiratory pathogen s DNA and RNA panel - Respiratory specimen by ELIANE with probe detection [facility] Sodium [Moles/volume ] in Serum or Plasma [facility] Sodium [Moles/volume ] in Serum or Plasma [facility] Sodium [Moles/volume ] in Serum or Plasma [facility] Specific gravity of Urine [facility] Urea nitrogen [Mass/ volume] in Serum or Plasma [facility] Urea nitrogen [Mass/ volume] in Serum or Plasma [facility] Urea nitrogen [Mass/ volume] in Serum or Plasma [facility] Urinalysis, blood, qualitative [facility] Urine dipstick for glucose [facility] Urine dipstick for l eukocyte esterase [facility] Urine dipstick for nitrite [facility] Urine dipstick for protein [facility] Urine examination [facility] Urine microscopy: ep ithelial cells [facility] Urine Microscopy: white cells [facility] Urobilinogen [Presence] in Urine [facility] Immunizations Immunization Date Immunization Notes Care Provider Fa cility 08-31-2023 tetanus toxoid, redu steph diphtheria toxoid, and acellular pertussis vaccine, adsorbed Dr. Rios Downey Work Phone: [facility] 07-12-2023 Covid Moderna Bivale nt Booster Dr. Rios Downey Work Phone: [facility] 10-06-2022 influenza, high dose seasonal, preservative-free JENNIFER LU MD [facility] 10-06-2022 Influenza, high dose seasonal Dr. Rios oDwney DO Work Phone: [facility] 03-16-2022 COVID-19, mRNA, LNP- S, PF, 100 mcg or 50 mcg dose; Translations: [Moderna COVID-19 Vaccine] JENNIFER LU MD [facility] 12-03-2021 COVID-19, mRNA, LNP- S, PF, 100 mcg or 50 mcg dose; Translations: [Moderna COVID-19 Vaccine] JENNIFER LU MD [facility] 09-17-2021 influenza, high dose seasonal, preservative-free; Translations: [Fluad Quadrivalent PF ] JENNIFER LU MD [facility] 09-17-2021 Influenza, high dose seasonal Dr. Rios Downey DO Work Phone: [facility] 01-20-2021 COVID-19, mRNA, LNP- S, PF, 100 mcg or 50 mcg dose; Translations: [Moderna COVID-19 Vaccine] JENNIFER LU MD [facility] 12-25-2020 SARS-CoV-2 (COVID-19 ) [id number] vaccine JENNIFER LU MD [facility] 08-15-2020 influenza, injectabl e, quadrivalent, preservative free; Translations: [Fluarix PF Quadrivalent ] JENNIFER LU MD [facility] 08-15-2020 influenza, seasonal, injectable Dr. Rios Downey Work Phone: [facility] 09-13-2019 influenza, injectabl e, quadrivalent, preservative free; Translations: [Fluarix PF Quadrivalent ] JENNIFER LU MD [facility] 09-13-2019 influenza, seasonal, injectable Dr. Rios Downey Work Phone: [facility] 08-28-[address] Jennifer Lu Work Phone: [facility] 09-04-2018 influenza virus vacc ine, unspecified formulation JENNIFER LU MD [facility] 09-04-2018 influenza, injectabl e, quadrivalent, preservative free Dr. Rios Downey Work Phone: [facility] 09-04-2018 influenza, seasonal, injectable Dr. Rios Downey Work Phone: [facility] 09-21-2017 influenza virus vacc ine, unspecified formulation JENNIFER LU MD [facility] 09-21-2017 influenza, injectabl e, quadrivalent, preservative free Dr. Rios Downey Work Phone: [facility] 09-21-2017 influenza, seasonal, injectable Dr. Rios Downey Work Phone: [facility] 08-22-2017 influenza, injectabl e, quadrivalent, preservative free Dr. Rios Downey Work Phone: [facility] 08-22-2017 influenza, seasonal, injectable Dr. Jenniefr Lu Work Phone: [facility] 08-24-[address] Jennifer Lu Work Phone: [facility] 08-24-2016 influenza virus vacc ine, unspecified formulation JENNIFER LU MD [facility] 08-24-2016 influenza, injectabl e, quadrivalent, preservative free Dr. Rios Downey Work Phone: [facility] 08-24-2016 influenza, seasonal, injectable Dr. Rios Downey Work Phone: [facility] 07-29-2016 influenza virus vacc ine, unspecified formulation JENNIFER LU MD [facility] 07-29-2016 influenza, injectabl e, quadrivalent, preservative free Dr. Rios Downey Work Phone: [facility] 07-29-2016 influenza, seasonal, injectable Dr. Rios Downey Work Phone: [facility] 10-03-2015 influenza virus vacc ine, unspecified formulation JENNIFER LU MD [facility] 10-03-2015 influenza, injectabl e, quadrivalent, preservative free Dr. Rios Downey Work Phone: [facility] 10-03-2015 influenza, seasonal, injectable Dr. Rios Downey Work Phone: [facility] 09-11-2015 influenza, injectabl e, quadrivalent, preservative free Dr. Rios Downey Work Phone: [facility] 09-11-2015 influenza, seasonal, injectable Dr. Jennifer Lu Work Phone: [facility] 03-03-2015 pneumococcal conjuga te vaccine, 13 valent JENNIFER LU MD [facility] 10-09-2014 influenza virus vacc ine, unspecified formulation JENNIFER LU MD [facility] 10-09-2014 influenza, injectabl e, quadrivalent, preservative free Dr. Rios Downey Work Phone: [facility] 10-09-2014 influenza, seasonal, injectable Dr. Rios Downey Work Phone: [facility] 09-17-2013 influenza virus vacc ine, unspecified formulation JENNIFER LU MD [facility] 09-17-2013 influenza, injectabl e, quadrivalent, preservative free Dr. Rios Downey Work Phone: [facility] 09-17-2013 influenza, seasonal, injectable Dr. Rios Downey Work Phone: [facility] 10-02-2012 pneumococcal polysaccharide vaccine, 23 vallucy LU MD [facility] 08-04-2011 tetanus toxoid, redu steph diphtheria toxoid, and acellular pertussis vaccine, adsorbed JENNIFER LU MD [facility] 08-28-2006 pneumococcal polysaccharide vaccine, 23 valent JENNIFER LU MD [facility] Payers Date Payer Category Payer Self-pay [id number] 2006 Medicare [id number] [facility] [id number] 2006 Unknown [id number] 1940 Unknown [id number] 2.16.8 [id number] Unknown [id number] Unknown [id number] 2.16.8 [id number] Unknown [id number] 2.16.8 40.1.175983.3.579.2.462 Unknown [id number] 2.16.8 40.1.892483.3.579.2.462 Unknown [id number] 2.16.8 40.1.536415.3.579.2.462 Unknown [id number] 2.16.8 40.1.852472.3.579.2.462 Unknown [id number] 2.16.8 40.1.317889.3.579.2.462 Unknown [id number] 2.16.8 40.1.536418.3.579.2.462 Unknown [id number] 2.16.8 40.1.264383.3.579.2.462 Unknown [id number] 2.16.8 40.1.767174.3.579.2.462 Unknown [id number] 2.16.8 40.1.361131.3.579.2.462 Unknown [id number] 2.16.8 40.1.583204.3.579.2.462 Unknown [id number] 2.16.8 40.1.725866.3.579.2.462 Unknown [id number] 2.16.8 40.1.669771.3.579.2.462 Unknown [id number] 2.16.8 40.1.743583.3.579.2.462 Unknown [id number] 2.16.8 40.1.849879.3.579.2.462 Unknown [id number] 2.16.8 40.1.290157.3.579.2.462 Unknown [id number] 2.16.8 40.1.336261.3.579.2.462 Unknown [id number] 2.16.8 40.1.630433.3.579.2.462 Unknown [id number] 2.16.8 40.1.272978.3.579.2.462 Unknown [id number] 2.16.8 40.1.561497.3.579.2.462 Unknown [id number] 2.16.8 40.1.435747.3.579.2.462 Unknown [id number] 2.16.8 40.1.478661.3.579.2.462 Social History Date Type Detail Facility Start: 12-07-2021 End: 02-19-2024 Tobacco smoking status NHIS Unknown if ever smoked [facility] Start: 01-31-2021 None [facility] Start: 01-31-2021 Spouse/ Signif icant Other [facility] Start: 02-19-2020 Non-smoker [facility] Start: 1940 Sex Assigned At Male [facility] Start: 06-15-2019 End: 10-15-2024 Tobacco smoking status Ex-smoker (finding) [facility] Comment on above: no smoke exposure Start: 06-29-2023 Cigarettes [facility] Start: 02-27-2025 Sex Male (finding) [facility] Goals Date Patient Goal Desired Activity /State Functional Status Date Assessment Result Facility 09-22-2023 Functional status Ambulates;Chair [facility] Work Phone: 08-22-2023 Functional status With Assist of 1 [facility] Work Phone: 08-21-2023 Functional status Dangle Feet;Chair [facility] Work Phone: 08-20-2023 Functional status Standard Walker [facility] Work Phone: 08-18-2023 Functional status Ambulates [facility] Work Phone: 08-11-2023 Functional status Bedrest [facility] Work Phone: 08-10-2023 Functional status Tolerates Activity Fair [facility] Work Phone: 07-27-2023 Functional status Bedrest [facility] Work Phone: 07-26-2023 Functional status Assistive Radha pablito Rolling Walker [facility] Work Phone: 07-11-2023 Functional status Chair [facility] Work Phone: 07-03-2023 Functional status Bedrest [facility] Work Phone: 07-03-2023 Functional status Standard Walker [facility] Work Phone: Mental Status Date Assessment Result Facility 02-19-2024 Cognitive function Level Of Cons ciousness Awake;Alert;Appropriate;Follow s Commands [facility] Work Phone: 11-23-2023 Cognitive function Voice/Name [facility] Work Phone: 09-28-2023 Cognitive function Voice/Name [facility] Work Phone: 09-22-2023 Cognitive function Voice/Name [facility] Work Phone: 08-22-2023 Cognitive function Voice/Name [facility] Work Phone: 08-18-2023 Cognitive function Touch/Shaking [facility] Work Phone: 08-17-2023 Cognitive function Touch/Shaking [facility] Work Phone: 08-10-2023 Cognitive function Voice/Name [facility] Work Phone: 08-09-2023 Cognitive function Cooperative [facility] Work Phone: 07-27-2023 Cognitive function Voice/Name;Touch/Shaki ng [facility] Work Phone: 07-27-2023 Cognitive function Anxious;Restless;Fatig ued [facility] Work Phone: 07-10-2023 Cognitive function Voice/Name [facility] Work Phone: 07-03-2023 Cognitive function Voice/Name [facility] Work Phone: 06-29-2023 Cognitive function Voice/Name [facility] Work Phone: 07-12-2022 Cognitive function Awake;Alert;A ppropriate;Follow s Commands [facility] Work Phone: 03-15-2022 Cognitive function Awake;Alert;A ppropriate;Follow s Commands 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 Work Phone: 1(586) 137-873210-26-2023 Discharge summary Author Eladio Lucas [facility] September 22, 2023 2:22pm Note Date/Time September 22, 2023 2 :22pm [facility] System Medical Records Department [address] [place] [id number] Discharge Summary 09/22/23 1416 MR#: [id number] Acct: [id number] Name: JODIE CARDENAS Rep #:[id number] : 1940 83 From: Eladio ramirez MD PCP: Dr. Rios Downey DO Status:ADM IN Location: [place] [id number] Providers Date of Admission: 09/16/23 Primary Care Physician: Dr. Rios Downey, DO Consultations 09/20/23 11:34 Consult: Exhibition Organiser / Pulmonary Medicine Routine Consulting Provider: [facility] Reason for Consult: Continued elevated O2 requirement [...] unit/mL injection solution 12 unit subcut BID [id number]/16 cholecalciferol (vitamin D3) 25 mcg (1,000 unit) [...] for dementia who now re-presents to the [facility] ED on 09/16/23 with history of discharge from SNF today specifically [facility] with reportedly transition to home and [...] want to send him back to a group home as she thinks that the group home made his condition worse. I discussed with [...] (Auto) 68.7, Lymph % (Auto) 18.8 L, [place] % (Auto) 8.1, Eos % (Auto) 3.7, [...] Peters; Otto Jerry; Tal Ashraf; Gosia Saenz FIELD TEST ENGINEER Instructions Additional Instructions / Restrictions: Follow-up your [...] Health Service Charges/Coding Visit Charges Inpatient E&M: 56112 Disch Hosp >30min Procedures Hospitalists Procedures: 46800 Advncd Care Plan 30 Min 09/22/23 1422 <Electronically signed by Eladio Lucas MD> Cosigner Signature (if applicable): CC: Dr. Eladio Lucas MD; Dr. Rios Downey DO~ Signed [facility] Work Phone: 1(322) 678-186610-26-2023 Progress note Author Yaakov Ivan [facility] September 22, 2023 1:57pm Note Date/Time September 22, 2023 9 :27am [facility] System Medical Records Department [address] [place] [address] Progress Note - Exhibition Organiser 09/22/23 0924 MR#: [id number] Acct: [id number] Name: JODIE CARDENAS Rep #:[id number] : 1940 83 From: Yaakov Love MD PCP: Dr. Rios Downey DO Status:ADM IN Location: [place] [id number]- [id number] Assessment & Plan Assessment/Plan (1) Acute [...] (Auto) 68.7, Lymph % (Auto) 18.8 L, [place] % (Auto) 8.1, Eos % (Auto) 3.7, [...] grossly normal Charges/Coding Visit Charges Inpatient E&M: 19953 Subs Hosp L2 09/22/23 1357 <Electronically signed by Yaakov Love MD> Cosigner Signature (if applicable): CC: ~ Signed [facility] Work Phone: 1(751) 889-234810-26-2023 Discharge summary Author Eladio Lucas [facility] September 22, 2023 1:18pm Note Date/Time September 22, 2023 1 :12pm [facility] Medical Records Department [address] [place] [address] Instructions for Home/Discharge Instructions 09/22/23 1311 MR#: [id number] Acct: [id number] Name: JODIE CARDENAS Rep #:[id number] : 1940 83 From: Eladio ramirez MD [...] Peters; Otto Jerry; Tal Ashraf; Gosia Saenz FIELD TEST ENGINEER Instructions Additional Instructions / Restrictions: Follow-up your [...] PO DAILY Referrals / Follow Up: Rios Downye DO [Primary Care Provider] - 09/27/23 3:30 pm Disposition Disposition (needs filled in before D/C Order can be placed): Home Health Service 09/22/23 5791<Electronically signed by Eladio Lucas MD>Eladio Lucas MD CC: IAN Saenz; Dr. Aleksander Hilliard DO; Dr. Patricia Alcantara MD; Dr. Yaakov Love MD; Dr. Josh Cline DO; Dr. Michelle Peters MD; Dr. Otto Jerry MD; Dr. Woody Brunson DO; Dr. Rios Downey DO; Dr. Tal Ashraf MD ~ Signed [facility] Work Phone: 1(285) 735-353010-25-2023 Progress note Author Yaakov Ivan [facility] September 21, 2023 1:05pm Note Date/Time September 21, 2023 8 :03am [facility] Medical Records Department [address] [place] [address] Progress Note - Exhibition Organiser 09/21/23 08 MR#: [id number] Acct: [id number] Name: JODIE CARDENAS Rep #:[id number] : 1940 83 From: Yaakov Love MD PCP: Dr. Rios Downey DO Status:ADM IN Location: [place] [address] Assessment & Plan Assessment/Plan (1) Acute exacerbation [...] grossly normal Charges/Coding Visit Charges Inpatient E&M: 79680 Subs Hosp L2 09/21/23 1305 <Electronically signed by Yaakov Love MD> Cosigner Signature (if applicable): CC: ~ Signed [facility] Work Phone: [phone]) 140-186410-25-2023 Progress note Author Eladio Lucas [facility] September 21, 2023 11:40am Note Date/Time September 21, 2023 1 1:34am [facility] Medical Records Department [address] [place] [address] Progress Note - Hospitalist 09/21/23 1131 MR#: [id number] Acct: [id number] Name: JODIE CARDENAS Rep #:[id number] : 1940 83 From: Eladio ramirez MD PCP: Dr. Rios Downey, DO Status:ADM IN Location: [place] [address] Subjective Subjective Doing well, no issues overnight [...] DVT: Eliquis Charges/Coding Visit Charges Inpatient E&M: 14677 Subs Hosp L2 09/21/23 1140 <Electronically signed by Eladio Lucas MD> Cosigner Signature (if applicable): CC: ~ Signed [facility] Work Phone: [phone]) 253-682010-24-2023 Consult note Author Yaakov Love [facility] September 20, 2023 3:26pm Note Date/Time September 20, 2023 3 :26pm [facility] Medical Records Department [address] [facility] [place] [address] Consultation - Exhibition Organiser 09/20/23 1512 MR#: [id number] Acct: [id number] Name: JODIE CARDENAS Rep #:[id number] : 1940 83 From: Yaakov Love MD PCP: Dr. Rios Downey, DO Status:ADM IN Location: [place] [address] Assessment & Plan Assessment/Plan (1) Acute exacerbation [...] pulmonary hypertension. Patient also noted to be [id number] pounds above dry weight. Agree with diuretics [...] medical history listed below, who presented to [facility] on 09/16/2023 secondary to a hypoxic episode. Patient reportedly was admitted at [facility] previously and transferred to a halfway center secondary to rehab. Patient reportedly was [...] be 22. Patient's BNP at that time [id number] with a troponin of 41. Chest x-ray [...] psychiatric and hematologic system unless stated above. [facility] Medical History Anemia Atherosclerosis of coronary artery bypass graft without angina pectoris Atherosclerosis of coronary artery of [place] heart without angina pectoris Chronic combined systolic [...] unit/mL injection solution 12 unit subcut BID MSRIIGNY93/27/16 [History Last Taken 07/02/23] cholecalciferol (vitamin D3) [...] 179 H Charges/Coding Visit Charges Inpatient E&M: 24094 Init Hosp L3 09/20/23 1526 <Electronically signed by Yaakov Love MD> Cosigner Signature (if applicable): CC: FIELD TEST ENGINEERGianfranco Saenz; Dr. Aleksander Hilliard DO; Dr. Patricia Alcantara MD; Dr. Yaakov Love MD; Dr. Josh Cline DO; Dr. Michelle Peters MD; Dr. Otto Jerry MD; Dr. Woody Brunson DO; Dr. Rios Downey DO; Dr. Tal Ashraf MD~ Signed [facility] Work Phone: 1(359) 910-608810-24-2023 Progress note Author Eladio Lucas [facility] September 20, 2023 1:43pm Note Date/Time September 20, 2023 1 :43pm [facility] Medical Records Department [address] [place] [address] Progress Note - Hospitalist 09/20/23 1340 MR#: [id number] Acct: [id number] Name: JODIE CARDENAS Rep #:[id number] : 1940 83 From: Eladio ramirez MD PCP: Dr. Rios Downey DO Status:ADM IN Location: [place] [address] Subjective Subjective Doing well, no issues overnight. [...] DVT: Eliquis Charges/Coding Visit Charges Inpatient E&M: 45981 Subs Hosp L2 09/20/23 1343 <Electronically signed by Eladio Lucas MD> Cosigner Signature (if applicable): CC: ~ Signed [facility] Work Phone: 1(505) 561-475210-23-2023 Progress note Author Eladio Lucas [facility] September 19, 2023 1:41pm Note Date/Time September 19, 2023 1 :34pm [facility] Medical Records Department [address] [facility] [place] [address] Progress Note - Hospitalist 09/19/23 1320 MR#: [id number] Acct: [id number] Name: JODIE CARDENAS Rep #:[id number] : 1940 83 From: Eladio ramirez MD PCP: Dr. Rios Downey, DO Status:ADM IN Location: [place] [id number]- [id number] Subjective Subjective Doing well, feels a [...] DVT: Eliquis Charges/Coding Visit Charges Inpatient E&M: 26234 Subs Hosp L2 09/19/23 1341 <Electronically signed by Eladio Lucas MD> Cosigner Signature (if applicable): CC: ~ Signed [facility] Work Phone: 1(576) 144-188910-22-2023 Progress note Author Aleksander Hilliard [facility] September 18, 2023 2:18pm Note Date/Time September 18, 2023 2 :18pm [facility] Medical Records Department [address] [place] [address] Progress Note - Hospitalist 09/18/23 1400 MR#: [id number] Acct: [id number] Name: HAMZAHRAFIJODIE Rothman Rep #:[id number] : 1940 83 From: Aleksander camargo DO PCP: Dr. Rios Downey, DO Status:ADM IN Location: [place] [id number]- 1 Reason for Visit Reason for Visit: [...] for CVA rule out who presented to [facility] ED on 09/16/2023 with worsening shortness of [...] 35 minutes. Charges/Coding Visit Charges Inpatient E&M: 53600 Subs Hosp L2 09/18/23 1418 <Electronically signed by Aleksander Hilliard DO> Cosigner Signature (if applicable): CC: ~ Signed [facility] Work Phone: 1(609) 824-798610-21-2023 Progress note Author Aleksander Hilliard [facility] September 17, 2023 3:42pm Note Date/Time September 17, 2023 3 :38pm [facility] Medical Records Department [address] [place] [address] Progress Note - Hospitalist 09/17/23 1527 MR#: [id number] Acct: [id number] Name: JODIE CARDENAS Rep #:[id number] : 1940 83 From: Aleksander camargo DO PCP: Dr. Rios Downey, Status:ADM IN Location: [place] [address] 1 Reason for Visit Reason for Visit: [...] % (Auto) 68.1, Lymph % (Auto) 19.0, [place] % (Auto) 8.1, Eos % (Auto) 3.7, [...] 70.5 H, Lymph % (Auto) 16.9 L, [place] % (Auto) 7.1, Eos % (Auto) 4.6, [...] 17:04 EDT Reading Location ID and State: [address] [place] [address] Tel , Service support , Physical Exam [...] for CVA rule out who presented to [facility] ED on 09/16/2023 with worsening shortness of [...] 35 minutes. Charges/Coding Visit Charges Inpatient E&M: 85514 Subs Hosp L2 09/17/23 1542 <Electronically signed by Aleksander Hilliard DO> Cosigner Signature (if applicable): CC: ~ Signed [facility] Work Phone: 1(982) 512-210910-20-2023 Discharge summary Author Cesar Medina [facility] September 16, 2023 6:42pm Note Date/Time September 16, 2023 6 :42pm [facility] Medical Records Department [address] [place] [address] Emergency Department Summary 09/16/23 MR#: [id number] Acct: [id number] Name: JODIE CARDENAS Rep #:[id number] : 1940 83 From: Cesar Medina DO [...] a month. He was discharged to a halfway facility where he just left today. His [...] state that when he was at the group home he was huffing and puffing when he was walking but not like today. He states that they change his Lasix to torsemide while he was at the halfway facility he is not sure why they did this. They also put him on potassium. [facility] Medical History Anemia Atherosclerosis of coronary artery bypass graft without angina pectoris Atherosclerosis of coronary artery of [place] heart without angina pectoris Chronic combined systolic [...] unit/mL injection solution 12 unit subcut BID ENDTYWKQ86/27/16 [History Last Taken 07/02/23] cholecalciferol (vitamin D3) [...] % (Auto) 68.1 Lymph % (Auto) 19.0 [place] % (Auto) 8.1 Eos % (Auto) 3.7 [...] 17:04 EDT Reading Location ID and State: [facility] / [place] Tel , Service support , Discharge Plan [...] your Primary Care Provider. Call [facility] ([phone]) or report to the closest Emergency Room. Call 911 if necessary. 09/16/231841 <Electronically signed by Cesar Medina DO> Cosigner Signature (if applicable): CC: Dr. Rios Downey, ~ Signed [facility] Work Phone: 1(677) 252-936410-20-2023 History and physical note Author Patricia Alcantara [facility] September 16, 2023 6:41pm Note Date/Time September 16, 2023 6 :17pm [facility] Medical Records Department [address] [facility] [place] [address] H&P Exam - Hospitalist 09/16/23 1809 MR#: [id number] Acct: [id number] Name: JODIE CARDENAS Rep #:[id number] : 1940 83 From: Patricia Alcantara MD [...] for dementia who now re-presents to the [facility] ED on 09/16/23 with history of discharge from SNF today specifically [facility] with reportedly transition to home and [...] atrial fibrillation without acute evidence of ischemia. [facility] Medical History Anemia Atherosclerosis of coronary artery bypass graft without angina pectoris Atherosclerosis of coronary artery of [place] heart without angina pectoris Chronic combined systolic [...] unit/mL injection solution 12 unit subcut BID ZNVHEXFR83/27/16 [History Last Taken 07/02/23] cholecalciferol (vitamin D3) [...] % (Auto) 68.1, Lymph % (Auto) 19.0, [place] % (Auto) 8.1, Eos % (Auto) 3.7, [...] for dementia who now re-presents to the [facility] ED on 09/16/23 with history of discharge from SNF today specifically [facility] with reportedly transition to home and [...] not repeat. Will place neck Dionna wraps. PT/OT/continuous pillowcase cutter consultation for discharge planning. To be cautious [...] intubation status. Charges/Coding Visit Charges Inpatient E&M: 59099 Init Hosp L3 09/16/23 184 <Electronically signed by Patricia Alcantara MD> Cosigner Signature (if applicable): CC: Dr. Patricia Alcantara MD; Dr. Rios Downey, ~ Signed [facility] Work Phone: 1(383) 702-588910-20-2023 History and physical note Author [facility] September 16, 2023 6:41pm Note Date/Time September 16, 2023 6 :17pm [facility] Medical Records Department [address] [place] [address] H&P Exam - Hospitalist 09/16/23 1809 MR#: [id number] Acct: [id number] Name: JODIE CARDENAS Rep #:[id number] : 1940 83 From: Patricia Alcantara MD [...] for dementia who now re-presents to the [facility] ED on 09/16/23 with history of discharge [...] atrial fibrillation without acute evidence of ischemia. [facility] Medical History Anemia Atherosclerosis of coronary artery bypass graft without angina pectoris Atherosclerosis of coronary artery of [place] heart without angina pectoris Chronic combined systolic [...] unit/mL injection solution 12 unit subcut BID RHOQGQLC04/27/16 [History Last Taken 07/02/23] cholecalciferol (vitamin D3) [...] % (Auto) 68.1, Lymph % (Auto) 19.0, [place] % (Auto) 8.1, Eos % (Auto) 3.7, [...] for dementia who now re-presents to the [facility] ED on 09/16/23 with history of discharge from SNF today specifically [facility] with reportedly transition to home and [...] not repeat. Will place neck Dionna wraps. PT/OT/continuous pillowcase cutter consultation for discharge planning. To be cautious [...] intubation status. Charges/Coding Visit Charges Inpatient E&M: 47274 Init Hosp L3 09/16/23 184 <Electronically signed by Patricia Alcantara MD> Cosigner Signature (if applicable): CC: Dr. Patricia Alcantara MD; Dr. Rios Downey DO~ Signed [facility] Work Phone: 1(730) 934-881410-20-2023 Discharge summary Author Cesar Medina [facility] September 16, 2023 6:42pm Note Date/Time September 16, 2023 6 :42pm [facility] Medical Records Department [address] [place] [address] Emergency Department Summary 09/16/23 MR#: [id number] Acct: [id number] Name: JODIE CARDENAS Rep #:[id number] : 1940 83 From: Cesar Medina DO [...] a month. He was discharged to a halfway facility where he just left today. His [...] state that when he was at the group home he was huffing and puffing when he was walking but not like today. He states that they change his Lasix to torsemide while he was at the halfway facility he is not sure why they did this. They also put him on potassium. [facility] Medical History Anemia Atherosclerosis of coronary artery bypass graft without angina pectoris Atherosclerosis of coronary artery of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 Denver % (Auto) 6.4 Eos % (Auto) 1.4 [...] The above Results were Read Back by Mahenrda Canada MD to Angélica Palomo and understanding [...] 11/06/2020, patient does not have any significant exchange consultant Discussion w/another healthcare provider: Hospitalist and Muffler Installer Discharge Plan Dx/Rx/DC Orders Clinical Impression: Essential (primary) hypertension, TIA (transient ischemic attack), Paroxysmal atrial fibrillation Disposition Disposition: Acute Care Hospital [facility] Discharge Date/Time: 06/29/23 14:54 What to do if you have Problems For any increased pain, shortness of breath, bleeding, nausea or vomiting, chest pain, or any unexpected problems, contact your Primary Care Provider. Call [facility] ([phone]) or report to the closest Emergency Room. Call 911 if necessary. 06/29/23 0231 <Electronically signed by Angélica Palomo DO> Cosigner Signature (if applicable): CC: Dr. Rios Downey, ~ Signed [facility] Work Phone: 1(277) 484-978608-02-2023 History and physical note Author Rigoberto Ashley [facility] June 29, 2023 3:09pm Note Date/Time June 29, 2023 2:2 7pm [facility] Medical Records Department [address] [facility] [place] [address] H&P Exam - Hospitalist 06/29/23 1424 MR#: [id number] Acct: [id number] Name: JODIE CARDENAS Rep #:[id number] : 1940 83 From: Rigoberto Bustos PCP: Dr. Rios Downey DO Status:ADM GUZMAN Location: [place] [address] HPI - General General Date of Admission: [...] and oxygen and BiPAP and chronic A-fib [facility] Medical History Acute exacerbation of CHF (congestive heart failure) Acute on chronic diastolic (congestive) heart failure Acute respiratory failure with hypoxia Anemia Atherosclerosis of coronary artery bypass graft without angina pectoris Atherosclerosis of coronary artery of [place] heart without angina pectoris Atrial fibrillation with [...] unit/mL injection solution 25 unit subcut BID [id number]/27/16 [History Last Taken 01/29/20] cholecalciferol (vitamin D3) [...] % (Auto) 70.0, Lymph % (Auto) 21.1, [place] % (Auto) 6.4, Eos % (Auto) 1.4, [...] 2022 patient was started on oxygen and [facility] nephrology saw the patient. Patient is on [...] on Eliquis. Charges/Coding Visit Charges Inpatient E&M: 35305 Init Hosp L3 Procedures Hospitalists Procedures: 80049 Advncd Care Plan 30 Min 06/29/23 1509 <Electronically signed by Rigoberto Ashley MD> Cosigner Signature (if applicable): CC: Dr. Rigoberto Ashley MD; Dr. Rios Downey DO~ Signed [facility] Work Phone: 1(221) 473-101006-17-2023 Note. 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, 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 Hyperlipemia chronic Paroxysmal atrial fibrillation [facility] Work Phone: 1(555) 302-772003-29-2016 Evaluation note* Diagnosis Onset Date Resolution Status Obstructive sleep apnea academic affairs specialist kirby Atherosclerosis of coronary artery of [place] heart without angina pectoris chronic Essential (primary) hypertension chronic H/O aortic valve replacement February 24, 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 Hyperlipemia chronic Paroxysmal atrial fibrillation [facility] Work Phone: 1(882) 811-488203-29-2016 Evaluation note* Diagnosis Onset Date Resolution Status Atherosclerosis of coronary artery of [place] heart without angina pectoris chronic Essential (primary) hypertension chronic H/O aortic valve replacement February 24, 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 Hyperlipemia chronic Paroxysmal atrial fibrillation [facility] Work Phone: Consult note Author Vladimir Bourgeois [facility] August 22, 2023 2:24pm Note Date/Time August 22, 2023 2:24pm [facility] Medical Records Department [address] [place] [address] Counseling Note - Pharmacy 08/22/23 1424 MR#: [id number] Acct: [id number] Name: JODIE CARDENAS Rep #:[id number] : 1940 83 From: Vladimir Bourgeois PCP: Dr. Rios Downey, DO Status:ADM IN Location: [place] [address] Pharmacy [place] Med Reconciliation Pharmacy Service has performed discharge [...] unit/mL injection solution 25 unit subcut BID [id number]/27/16 cholecalciferol (vitamin D3) 25 mcg (1,000 unit) [...] Signature (if applicable): Date CC: ~ Signed [facility] Work Phone: Evaluation + Plan note Future Appointments Appointment Date:07/25/2024 04:00:00 PM Scheduled Provider:RIOS DOWNEY DO Location:[facility] Appointment Type: OV Future Scheduled Tests [...] Level 06/08/22 * Complete Metabolic Panel 06/08/22 [facility] evaluation noteNo assessment information available [facility] Work Phone: evaluation note* Diagnosis Onset Date Resolution Status Restrictive airway disease a cute Chronic renal failure, stage 3 (moderate) chronic Chronic respiratory failure with hypoxia chronic Obstructive sleep apnea [facility] Work Phone: Evaluation note* Diagnosis Onset Date Resolution Status Restrictive airway disease a cute Chronic renal failure, stage 3 (moderate) chronic Chronic respiratory failure with hypoxia chronic Obstructive sleep apnea [facility] Atherosclerosis of coronary artery of [place] heart without angina pectoris chronic Essential (primary) hypertension chronic H/O aortic valve replacement February 24, 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, 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 Hyperlipemia chronic Paroxysmal atrial fibrillation chronic [facility] Work Phone: Evaluation note* Diagnosis Onset Date Resolution Status Restrictive airway disease a cute Chronic respiratory failure with hypoxia chronic Obstructive sleep apnea [facility] Work Phone: Evaluation note* Diagnosis Onset Date Resolution Status Obstructive sleep apnea [facility] Work Phone: Evaluation note* Diagnosis Onset Date Resolution Status Encephalopathy acute TIA (transient ischemic attack) acute Essential (primary) hypertension chronic Paroxysmal atrial fibrillation [facility] Work Phone: Evaluation note* Diagnosis Onset Date [...] ml/min chronic Hypertension chronic Obstructive sleep apnea [facility] Encephalopathy resolved [facility] Work Phone: Evaluation note* Diagnosis Onset [...] ml/min chronic Hypertension chronic Obstructive sleep apnea academic affairs specialist kirby Encephalopathy resolved Confusion acute Debility acute [facility] Work Phone: Evaluation note* Diagnosis Onset [...] ml/min chronic Hypertension chronic Obstructive sleep apnea academic affairs specialist kirby Encephalopathy resolved Debility acute Acute exacerbation of CHF (congestive heart failure) [facility] Work Phone: Evaluation note* Diagnosis Onset Date [...] ml/min chronic Hypertension chronic Obstructive sleep apnea academic affairs specialist kirby Encephalopathy resolved Debility acute Aortic stenosis acute Debility acute Acute exacerbation of CHF (congestive heart failure) chronic Chronic respiratory failure chronic CKD (chronic kidney disease) stage 4, 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 [facility] Work Phone: Evaluation note* Diagnosis Onset [...] ml/min chronic Hypertension chronic Obstructive sleep apnea academic affairs specialist kirby Encephalopathy resolved Debility acute Aortic stenosis acute Debility acute Acute exacerbation of CHF (congestive heart failure) chronic Chronic respiratory failure chronic CKD (chronic kidney disease) stage 4, 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 Chronic respiratory failure chronic Obstructive sleep apnea academic affairs specialist kirby [facility] Work Phone: Evaluation note* Diagnosis Onset Date Resolution Status Aortic stenosis acute Atrial fibrillation acute Coronary artery disease acut e Debility acute Depression acute Diabetes mellitus acute Dysarthria acute Expressive aphasia acute GERD (gastroesophageal reflux disease) acute Seizure disorder acute Chronic respiratory failure chronic CKD (chronic kidney disease) stage 4, 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 Hypertension chronic Obstructive sleep apnea academic affairs specialist kirby Encephalopathy resolved Debility acute Aortic stenosis acute Debility acute Acute exacerbation of CHF (congestive heart failure) chronic Chronic respiratory failure chronic CKD (chronic kidney disease) stage 4, 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 Chronic respiratory failure chronic Obstructive sleep apnea academic affairs specialist kirby [facility] Work Phone: Evaluation note* Diagnosis Onset Date Resolution Status Aortic stenosis acute Debility acute Acute exacerbation of CHF (congestive heart failure) chronic Chronic respiratory failure chronic CKD (chronic kidney disease) stage 4, 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 Chronic respiratory failure chronic Obstructive sleep apnea [facility] Work Phone: Hospital course Narrative No data available for this section [facility] Hospital Discharge instructions No data available for this section [facility] Hospital Discharge instructions Additional Instructions Continue [...] tizanidine for this. I do recommend using [id number] Lidoderm patches as well to the area of maximum pain in your lower back. Return to the ER if you have a progression or worsening of your symptoms or further concerns.[facility] Work Phone: Progress note No data available for this section [facility] Reason for referral (narrative)No reason for referral information availableW[facility] Work Phone: Chief Complaint and Reason for Visit Chief Complaint 6 M FU RETACRIT RETACRIT RETACRIT RETACRIT Reason for Visit Atherosclerosis of c oronary artery of [place] heart without angina pectoris Essential (primary) hypertension [...] sleep apnea Atherosclerosis of coronary artery of [place] heart without angina pectoris Essential (primary) hypertension H/O aortic valve replacement H/O coronary artery bypass surgery Hyperlipemia Paroxysmal atrial fibrillation Chief Complaint 1 Y FU RETACRIT RETACRIT 6 M FU RETACRIT RETACRIT Reason for Visit Restrictive airway d isease Chronic renal failure, stage 3 (moderate) Chronic respiratory failure with hypoxia Obstructive sleep apnea Atherosclerosis of coronary artery of [place] heart without angina pectoris Essential (primary) hypertension H/O aortic valve replacement H/O coronary artery bypass surgery Hyperlipemia Paroxysmal atrial fibrillation Chief Complaint RETACRIT RETACRIT 6 M FU RETACRIT RETACRIT Reason for Visit Atherosclerosis of c oronary artery of [place] heart without angina pectoris Essential (primary) hypertension H/O aortic valve replacement H/O coronary artery bypass surgery Hyperlipemia Paroxysmal atrial fibrillation Chief Complaint RETACRIT RETACRIT 6 M FU RETACRIT RETACRIT RETACRIT Reason for Visit Atherosclerosis of c oronary artery of [place] heart without angina pectoris Essential (primary) hypertension H/O aortic valve replacement H/O coronary artery bypass surgery Hyperlipemia Paroxysmal atrial fibrillation Chief Complaint RETACRIT 6 M FU RETACRIT RETACRIT RETACRIT RETACRIT Reason for Visit Atherosclerosis of c oronary artery of [place] heart without angina pectoris Essential (primary) hypertension [...] ap kalen Atherosclerosis of coronary artery of [place] heart without angina pectoris Essential (primary) hypertension H/O aortic valve replacement Hyperlipemia Paroxysmal atrial fibrillation Chief Complaint RETACRIT RETACRIT RETACRIT retacrit 1 Y FU retacrit Reason for Visit Atherosclerosis of c oronary artery of [place] heart without angina pectoris Essential (primary) hypertension H/O aortic valve replacement Hyperlipemia Paroxysmal atrial fibrillation Chief Complaint RETACRIT RETACRIT retacrit 1 Y FU retacrit retacrit Reason for Visit Atherosclerosis of c oronary artery of [place] heart without angina pectoris Essential (primary) hypertension H/O aortic valve replacement Hyperlipemia Paroxysmal atrial fibrillation Chief Complaint retacrit 1 Y FU retacrit retacrit retacrit retacrit Reason for Visit Atherosclerosis of c oronary artery of [place] heart without angina pectoris Essential (primary) hypertension [...] Visit Atherosclerosis of c oronary artery of [place] heart without angina pectoris Essential (primary) hypertension [...] No January 31, 2021 1:32pm Power of Tobacco Classer No January 31 1:32pm Advance Directive Response Recorded Date/ Time Advance Directives No September 11:41am Living Will No January 31, 2021 12:32pm Power of Tobacco Classer No January 31 12:32pm Advance Directive Response Recorded Date/ Time Advance Directives No September 12:41pm Living Will No June 29, 2023 12:48pm Power of Tobacco Classer No June 29 12:48pm Advance Directive Response Recorded Date/ Time Advance Directives No September 12:41pm Living Will No June 29, 2023 3:15pm Power of Tobacco Classer No June 29 3:15pm Advance Directive Response Recorded Date/ Time Advance Directives No September 12:41pm Living Will No July 04, 2023 11:19am Power of Tobacco Classer No July 04 11:19am Advance Directive Response Recorded Date/ Time Name of Medical Power of Tobacco Classer GRAND DAUGHTER August 18, 2023 11:51am Advance Directives No September 12:41pm Living Will Yes August 18, 2023 11:51am Power of Tobacco Classer Yes July 11:51am Advance Directive Response Recorded Date/ Time Name of Medical Power of Tobacco Classer GRAND DAUGHTER August 18, 2023 5:51pm Advance Directives No September 12:41pm Living Will Yes August 18, 2023 5:51pm Power of Tobacco Classer Yes July 5:51pm Advance Directive Response Recorded Date/ Time Name of Medical Power of Tobacco Classer MARIA LUISA-GRANDDAUGHTER August 31, 2023 4:30pm Name of Medical Power of Tobacco Classer MARIA LUISA FRAME- GRANDDAUGHTER September 16, 2023 4:13pm Advance Directives No September 12:41pm Living Will Yes September 16 4:13pm Power of Tobacco Classer Yes September 16, 2023 4:13pm Name of Medical Power of Tobacco Classer GRAND DAUGHTER August 18, 2023 5:51pm Advance Directive Response Recorded Date/ Time Name of Medical Power of Tobacco Classer MARIA LUISA-GRANDDAUGHTER August 31, 2023 4:30pm Name of Medical Power of Tobacco Classer MARIA LUISA FRAME- GRANDDAUGHTER September 16, 2023 8:46pm Advance Directives No September 12:41pm Living Will Yes September 16 8:46pm Power of Tobacco Classer Yes September 16, 2023 8:46pm Name of Medical Power of Tobacco Classer GRAND DAUGHTER August 18, 2023 5:51pm Advance Directive Response Recorded Date/ Time Name of Medical Power of Tobacco Classer MARIA LUISA-GRANDDAUGHTER August 31, 2023 3:30pm Name of Medical Power of Tobacco Classer MARIA LUISA FRAME- GRANDDAUGHTER September 16, 2023 7:46pm Advance Directives No September 11:41am Living Will Yes September 16 7:46pm Power of Tobacco Classer Yes September 16, 2023 7:46pm Name of Medical Power of Tobacco Classer GRAND DAUGHTER August 18, 2023 4:51pm Advance Directive Response Recorded Date/ Time Name of Medical Power of Tobacco Classer MARIA LUISA FRAME- GRANDDAUGHTER September 16, 2023 7:46pm Advance Directives No September 11:41am Living Will Yes September 16 7:46pm Power of Tobacco Classer Yes September 16, 2023 7:46pm Advance Directive Response Recorded Date/ Time Advance Directives No September 12:41pm Living Will Yes September 16 8:46pm Power of Tobacco Classer Yes September 16, 2023 8:46pm Advance Directive Response Recorded Date/ Time Name of Medical Power of Tobacco Classer maria luisa morris February 15, 2024 11:56pm Advance Directives No September 12:41pm Living Will Yes February 15, 2024 11:56pm Power of Tobacco Classer Yes February 14 11:56pm Advance Directive Response Recorded Date/ Time Name of Medical Power of Tobacco Classer VIVIEN Malin February 19, 2024 12:00pm Advance Directives No September 12:41pm Living Will Yes February 19, 2024 12:00pm Power of Tobacco Classer Yes February 18 12:00pm Name of Medical Power of Tobacco Classer maria luisa morris February 15, 2024 11:56pm Advance Directive Response Recorded Date/ Time Living Will Yes February 19, 2024 12:00pm Do you have a Healthcare Power of Tobacco Classer? Yes February 19, 2024 12:00pm Advance Directives [...] Provider, Referrin g Provider Active Hector Sheldon FIELD TEST ENGINEER, FIELD TEST ENGINEER-C Attending Provider Active Team Status: Active Member [...] Ruelas MD Attending Provider Active Dr. Rigoberto Ashely MD Referring Provider Active Team Status: Active [...] Ashraf MD Other Provider Active Gosia Saenz FIELD TEST ENGINEER, FIELD TEST ENGINEER-C Other Provider Active Team Status: Active Member Role Status Dates Dr. Rios Downey , DO Primary Care Provider Active Dr. Cesar Medina , DO Emergency Provider Active Dr. Patricia Aclantara MD Admit Provider, Other Provider Active Dr. [...] MD Other Provider Active Gosia Saenz NP, FIELD TEST ENGINEER-C Other Provider Active Team Status: Inactive Member [...] Ashraf MD Other Provider Active Gosia Saenz FIELD TEST ENGINEER, FIELD TEST ENGINEER-C Other Provider Active Team Status: Inactive Member Role Status Dates Dr. Rios Downey , DO Primary Care Provider, Referrin g Provider Active Gosia Saenz FIELD TEST ENGINEER, FIELD TEST ENGINEER-C Attending Provider Active Team Status: Active Member [...] Ashraf MD Other Provider Active Gosia Saenz FIELD TEST ENGINEER, FIELD TEST ENGINEER-C Other Provider Active Team Status: Inactive Member [...] Inactive Member Role Status Dates Dr. Rios Donwey DO Primary Care Provider Active Start: March 14, 2025 End: March 14, 2025 Dr. Rios Downey DO Referring Provider Active Start: March 14, 2025 End: March 14, 2025 Gosia Saenz FIELD TEST ENGINEER, FIELD TEST ENGINEER-C Attending Provider Active Start: March 14, 2025 [...] section and content) DATE CREATED AUTHOR 05/29/2023 [facility] ([place]) DATE CREATED AUTHOR AUTHOR'S ORGANIZ ATION 05/28/2025 [facility] FOR RECORDS PERTAINING TO PATIENTS WHO [...] BE BASED ON THE PRIMARY CLINICAL RECORDS. [facility]. provides no warranty or guarantee of the accuracy or completeness of information in this document.
[2025-05-31 22:57] LABS: AST(SGOT) 27 U/L (<=37); Alanine Aminotransfer ALT/SGPT 12 U/L (<=46); Albumin, Serum 4.0 g/dL (3.4-4.8); Alkaline Phosphatase 208 U/L (40-129); Anion Gap 12 (5-15); BUN 54 mg/dL (4-19); BUN/Creat Ratio 21.1 RATIO (10-20); Calcium,Total 9.6 mg/dL (7.6-11.0); Carbon Dioxide 21.8 mmol/L (21.0-32.0); Chloride 108 mmol/L (98-108); Estimated Creatinine Clearance 24.99 ml/min (50-250); Globulin 3.6 g/dL (2.2-4.2); Glucose 116 mg/dL (70-99); Potassium 4.9 mmol/L (3.3-5.1)
[2025-05-31 23:10] LABS: Squamous Epithelial Cells - UA 0 SEEN /hpf (0-5)
[2025-05-31 23:21] LABS: Color, Urine Yellow (Yellow); Glucose, Dipstick Normal (Normal); Ketone-Dipstick Negative (Negative); Leukocyte Esterase-Dipstick Negative /ul (Negative); Nitrite-Dipstick Negative (Negative); Occult Blood-Urine 10 /ul (Negative); Protein-Dipstick 100 mg/dl (Negative); Specific Gravity, Urine 1.015 (1.002-1.030); Urine Bilirubin Dipstick Negative (Negative)
[2025-05-31 23:25] LABS: Allen Test Positive; Base Excess -1 mmol/L (-2 to +2); FI02 5.0; PO2 71 mmHG (75-100); SITE R Brach; SO2 94 % (95-99)
[2025-05-31 23:40] VITALS: BP 113/64; PULSE 53; RESP 11; TEMP 36.6; O2SAT 100
[2025-05-31 23:48] LABS: Mucous, Urine RARE /hpf (<or=2+); Red Blood Cells-Urine 0-5 SEEN /hpf (0-5)
[2025-06-01 00:09] VITALS: BP 140/75; PULSE 57; RESP 16; TEMP 36.6; O2SAT 100
[2025-06-01 00:42] VITALS: BP 144/84; PULSE 51; RESP 19; TEMP 36.6; O2SAT 100
== END 2025-06-01 00:44 | disposition home or self-care (01) ==
PROVIDERS: Emergency Provider Emergency Medicine; Visit Provider Emergency Medicine
DX: R41.0 Disorientation, unspecified (principal); N18.4 Chronic kidney disease, stage 4 (severe); J96.11 Chronic respiratory failure with hypoxia; I13.0 Hypertensive heart and chronic kidney disease with heart failure and stage 1 through stage 4 chronic kidney disease, or unspecified chronic kidney disease; I50.42 Chronic combined systolic (congestive) and diastolic (congestive) heart failure; J44.9 Chronic obstructive pulmonary disease, unspecified; I48.91 Unspecified atrial fibrillation; E11.22 Type 2 diabetes mellitus with diabetic chronic kidney disease; Z79.4 Long term (current) use of insulin; G47.33 Obstructive sleep apnea (adult) (pediatric); I25.10 Atherosclerotic heart disease of native coronary artery without angina pectoris; I44.7 Left bundle-branch block, unspecified; Z87.891 Personal history of nicotine dependence; Z79.899 Other long term (current) drug therapy; Z79.01 Long term (current) use of anticoagulants; Z79.82 Long term (current) use of aspirin; Z86.73 Personal history of transient ischemic attack (TIA), and cerebral infarction without residual deficits
CPT/HCPCS: 36600; 71046; 80053; 81001; 82803; 83605; 85025; 93005; 99284; A4216

== ENCOUNTER 2025-06-19 14:56 | Outpatient (CLI) | payer MEDICARE, OTHER, SELFPAY ==
[2025-06-19 15:23] LABS: Hematocrit 35.0 % (40-54); Hemoglobin 11.2 g/dL (13.0-16.5); Immature Granulocytes Count 0.030 X10^3/uL (0.0-0.0); Mean Corp Hgb Conc 32.0 g/dL (32-36); Mean Corpuscular Volume 100.3 fL (80-94); Mean Platelet Vol. 11.8 fl (6.2-12.0); NRBC Flagged by Analyzer 0 % (0-5); Platelet Count 103 K/mm3 (150-450); RBC Distribution Width CV 14.7 % (11.6-14.6); RBC Distribution Width SD 53.2 fl (35.1-43.9); Red Blood Count 3.49 M/mm3 (4.6-6.2); White Blood Count 6.8 K/mm3 (4.4-11.0)
[2025-06-19 16:31] LABS: Albumin, Serum 3.9 g/dL (3.4-4.8); Anion Gap 14 (5-15); BUN 68 mg/dL (4-19); BUN/Creat Ratio 24.9 RATIO (10-20); Calcium,Total 9.9 mg/dL (7.6-11.0); Carbon Dioxide 19.7 mmol/L (21.0-32.0); Chloride 108 mmol/L (98-108); Ferritin 168 ng/mL (37-417); Glucose 99 mg/dL (70-99); Potassium 5.1 mmol/L (3.3-5.1)
[2025-06-19 16:48] LABS: Iron 59 ug/dL (65-175); Iron Binding Capacity,Total 248 ug/dL (250-450); Iron Binding Capacity,Unsat 189 ug/dL (228-428)
[2025-06-19 23:11] LABS: Xtra Tube EP Lab EXTRA TUBE
== END 2025-06-19 23:59 | disposition home or self-care (01) ==
LOC: MEDOUTP 14:56
PROVIDERS: Referring Provider Internal Medicine Nephrology; Visit Provider Internal Medicine Nephrology
DX: N18.5 Chronic kidney disease, stage 5 (principal); D63.1 Anemia in chronic kidney disease; N25.81 Secondary hyperparathyroidism of renal origin
CPT/HCPCS: 36415; 80069; 82728; 83540; 83550; 85025

== ENCOUNTER 2025-07-06 15:27 | Inpatient (IN) | payer MEDICARE, OTHER, SELFPAY ==
[2025-07-06] VITALS (11 sets, daily range): BP systolic 112–141; BP diastolic 55–94; PULSE 47–57; RESP 13–20; TEMP 34.7–36.8; O2SAT 95–100; BMI 44.5; BMI 43.2
--- OUTSIDE RECORDS SUMMARY | 2025-07-06 16:26 | XMS RPT_ITS | CCD ---
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 141 mmol/L 133-145 [facility] White blood cell (WBC) count Ordered By: Pepe Au on 06-19-2025 WBC (Bld) [#/Vol] 6.8 10*3/uL 4.4-11.0 [facility] Absolute lymphocyte countOrd ered By: Duc Vicente on 05-31-2025 Lymphocytes Auto (Unsp spec) [#/Vol] 1.81 10*3/uL 0.83-4.51 [facility] Absolute neutrophil countOrd ered By: Duc Vicente on 05-31-2025 Neutrophils (Bld) [#/Vol] 3.5 10*3/uL 2.0-7.7 [facility] Anion gap in Serum or Plasma Ordered By: Duccarlee Vicente on 05-31-2025 Anion gap [Moles/Vol] 12 mmol/L 5-15 [facility] [place] Assessment of wrist artery p atency prior to arterial punctureOrdered By: Duccarlee Vicente on 05-31-2025 Arterial patency Wrist artery --pre arterial puncture Positive [facility] Automated lymphocyte count a s percentage of total leukocytesOrdered By: Duc Vicente on 05-31-2025 Lymphocytes/100 WBC Auto (Unsp spec) 30.0 % 19-41 [facility] BUN/creatinine ratioOrdered By: Duc Vicente on 05-31-2025 Urea nitrogen/Creatinine [Mass ratio] 21.1 mg/mg High 10-20 [facility] Basophil percentageOrdered B y: Duc Vicente on 05-31-2025 Basophils/100 WBC (Bld) 0.5 % 0-1 [facility] Bilirubin Test strip Ql (U)O rdered By: Duc Vicente on 05-31-2025 Bilirubin Ql (U) Negative Negative [facility] Bilirubin, totalOrdered By: Duc Vicente on 05-31-2025 Bilirubin [Mass/Vol] 0.76 mg/dL 0.00-1.30 [facility] Blood base excess determinat ionOrdered By: Duccarlee Calderono on 05-31-2025 Base excess Calc (BldV) [Moles/Vol] -1 mmol/L -2-2 [facility] Blood bicarbonate measuremen tOrdered By: Duccarlee Vicente on 05-31-2025 HCO3 (Bld) [Moles/Vol] 24.0 mmol/L 22-26 [facility] Carbon dioxide, total [Moles /volume] in Central venous bloodOrdered By: Duccarlee Vicente on 05-31-2025 CO2 [Moles/Vol] 21.8 mmol/L 21.0-32.0 [facility] Chloride assayOrdered By: [facility] Jules on 05-31-2025 Chloride [Moles/Vol] 108 mmol/L 98-108 [facility] Eosinophil percentageOrdered By: Duccarlee Vicente on 05-31-2025 Eosinophils/100 WBC (Bld) 2.2 % 0-5 [facility] Erythrocyte distribution wid th ratioOrdered By: Duccarlee Vicente on 05-31-2025 Erythrocyte distribution width (RBC) [Ratio] 15.0 % High 11.6-14.6 [facility] Erythrocyte distribution wid th standard deviationOrdered By: [facility] [place] Jules on 05-31-2025 Erythrocyte distribution width (RBC) [Ratio] 55.1 fl High 35.1-43.9 [facility] Glomerular filtration rate ( GFR) estimation/1.73 sq m using serum, plasma, or whole bOrdered By: Duccarlee Vicente on 05-31-2025 GFR/1.73 sq M.predicted among non-blacks MDRD (S/P/Bld) [Vol rate/Area] 24 mL/min/{1.73_m2} Low >60 [facility] Comment on above: mL/min/1.73m2 CKD-EP I Creatinine Equation (2020) Hematocrit Auto (Bld) [Volum e fraction]Ordered By: Duccarlee Vicente on 05-31-2025 Hematocrit (Bld) [Volume fraction] 37.3 % Low 40-54 [facility] Hemoglobin measurementOrdere d By: Duccarlee Vicente on 05-31-2025 Hemoglobin (Bld) [Mass/Vol] 11.9 g/dL Low 13.0-16.5 [facility] Hyaline casts LM.LPF (Urine sed) [#/Area]Ordered By: Duccarlee Vicente on 05-31-2025 Hyaline casts (Urine sed) [#/Area] 0 /[LPF] 0-5 [facility] Immature granulocytes/100 WB C Auto (Bld)Ordered By: Duc Vicente on 05-31-2025 Immature granulocytes/100 WBC (Bld) 0.500 % 0.0-0.9 [facility] Comment on above: IG% - Immature Granu locytes (promyelocytes, myelocytes and metamyelocytes) > 1% indicates that a LEFT SHIFT is Present. Ketones Test strip Ql (U)Ord ered By: Duc Vicente on 05-31-2025 Ketones Ql (U) Negative Negative [facility] Laboratory - Chemistry and C hemistry - challengeOrdered By: Duc Vicente on 05-31-2025 AST [Catalytic activity/Vol] 27 U/L <38 [facility] Lactic acid measurementOrder ed By: Duc Vicente on 05-31-2025 Lactate [Moles/Vol] 1.7 mmol/L 0.0-2.0 [facility] MCV (mean corpuscular volume ) determinationOrdered By: Duc Vicente on 05-31-2025 MCV (RBC) [Entitic vol] 101.6 fL High 80-94 [facility] Mean corpuscular hemoglobin (MCH) determinationOrdered By: Duc Vicente on 05-31-2025 MCH (RBC) [Entitic mass] 32.4 pg High 27.0-32.0 [facility] Mean corpuscular hemoglobin concentration (MCHC) determinationOrdered By: Duc Vicente on 05-31-2025 MCHC (RBC) [Mass/Vol] 31.9 g/dL Low 32-36 [facility] Mean platelet volume determi nationOrdered By: Duc Vicente on 05-31-2025 Platelet mean volume (Bld) [Entitic vol] 11.9 fL 6.2-12.0 [facility] Measurement, pHOrdered By: Joe Vicente on 05-31-2025 pH (Unsp spec) 7.41 [pH] 7.35-7.45 [facility] Microscopic analysis of urin e for red blood cells (RBC)Ordered By: Duc Vicente on 05-31-2025 Microscopic analysis of urine for red blood cells (RBC) 0-5 SEEN /hpf 0-5 [facility] Monocyte percentageOrdered B y: Duc Vicente on 05-31-2025 Monocytes/100 WBC (Bld) 8.5 % 0-10 [facility] Mucus LM Ql (Urine sed)Order ed By: Duc Vicente on 05-31-2025 Mucus Ql (Urine sed) RARE /hpf [facility] Neutrophil percentageOrdered By: Duc Vicente on 05-31-2025 Neutrophils/100 WBC (Bld) 58.3 % 47-70 [facility] Nitrite Test strip Ql (U)Ord ered By: Duc Vicente on 05-31-2025 Nitrite Ql (U) Negative Negative [facility] No Panel InformationOrdered By: Duc Vicente on 05-31-2025 Blood Gas Sample Site R [facility] Blood Gas Specimen Type ART [facility] Blood Gas Vent Mode Not entered [facility] Oxygen Delivery Device Cannula [facility] ART [facility] R [facility] Not entered [facility] Cannula [facility] 27 U/L <38 [facility] Nucleated red blood cell per centageOrdered By: Duc Vicente on 05-31-2025 Nucleated RBC/100 WBC (Bld) [Ratio] 0 % 0-5 [facility] Platelet countOrdered By: Cherie Vicente on 05-31-2025 Platelets (Bld) [#/Vol] 110 10*3/uL Low 150-450 [facility] Potassium measurement (mass/ volume)Ordered By: Duc Vicente on 05-31-2025 Potassium (Unsp spec) [Mass/Vol] 4.9 mmol/L 3.3-5.1 [facility] Protein Test strip Ql (U)Ord ered By: Duc Vicenet on 05-31-2025 Protein Ql (U) 100 mg/dl High Negative [facility] RBC Auto (Bld) [#/Vol]Ordere d By: Duc Vicente on 05-31-2025 RBC (Bld) [#/Vol] 3.67 10*6/uL Low 4.6-6.2 [facility] Serum creatinine measurement (mass/volume)Ordered By: Duc Vicente on 05-31-2025 Creatinine [Mass/Vol] 2.54 mg/dL High 0.70-1.20 [facility] Serum globulin measurementOr dered By: Duc Vicente on 05-31-2025 Globulin (S) [Mass/Vol] 3.6 g/dL 2.2-4.2 [facility] Serum glucose measurement (m ass/volume)Ordered By: Duc Vicente on 05-31-2025 Glucose [Mass/Vol] 116 mg/dL High 70-99 [facility] Serum or plasma alanine irving otransferase (ALT) measurementOrdered By: Duc Vicente on 05-31-2025 ALT [Catalytic activity/Vol] 12 U/L <47 [facility] Serum or plasma albumin aubree urement (mass/volume)Ordered By: Duccarlee Vicente on 05-31-2025 Albumin [Mass/Vol] 4.0 g/dL 3.4-4.8 [facility] Serum or plasma albumin/glob ulin mass ratioOrdered By: Duccarlee Vicente on 05-31-2025 Albumin/Globulin [Mass ratio] 1.1 {ratio} 0.9-2.4 [facility] Serum or plasma alkaline tamiko sphatase measurementOrdered By: Duccarlee Vicente on 05-31-2025 ALP [Catalytic activity/Vol] 208 U/L High 40-129 [facility] Serum or plasma calcium aubree urement (mass/volume)Ordered By: Duc Vicente on 05-31-2025 Calcium [Mass/Vol] 9.6 mg/dL 7.6-11.0 [facility] Serum or plasma urea nitroge n measurement (mass/volume)Ordered By: Duc Vicente on 05-31-2025 Urea nitrogen [Mass/Vol] 54 mg/dL High 4-19 [facility] Sodium levelOrdered By: Duc Vicente on 05-31-2025 Sodium [Moles/Vol] 142 mmol/L 133-145 [facility] Squamous epithelial cells de tection in urine sediment by light microscopyOrdered By: Duc Vicente on 05-31-2025 Epithelial cells.squamous LM Ql (Urine sed) 0 SEEN /hpf 0-5 [facility] Total carbon dioxide measure mentOrdered By: Duc Vicente on 05-31-2025 CO2 [Moles/Vol] 25 mmol/L [facility] Total proteinOrdered By: Duc Vicente on 05-31-2025 Protein [Mass/Vol] 7.6 g/dL 5.9-8.4 [facility] Urine clarityOrdered By: Duc Vicente on 05-31-2025 Clarity (U) Clear Clear [facility] Urine color determinationOrd ered By: Duc Vicente on 05-31-2025 Color (U) Yellow Yellow [facility] Urine glucose detectionOrder ed By: Duc Vicente on 05-31-2025 Glucose Ql (U) Normal mg/dl Normal [facility] Urine leukocyte esterase det ection by dipstickOrdered By: Duc Vicente on 05-31-2025 Leukocyte esterase Test strip Ql (U) Negative Negative [facility] Urine pHOrdered By: Duc encinas on 05-31-2025 pH (U) 5.0 [pH] 5.0 - 8.0 [facility] Urine sediment bacteria coun t by microscopy (number/high power field)Ordered By: Duc Vicente on 05-31-2025 Bacteria LM.HPF (Urine sed) [#/Area] RARE /hpf None Seen [facility] Urine specific gravity measu rementOrdered By: Duc Vicente on 05-31-2025 Specific gravity (U) [Rel density] 1.015 1.002-1.030 [facility] Urine urobilinogen measureme ntOrdered By: Duc Vicente on 05-31-2025 Urobilinogen Ql (U) Normal mg/dl Normal [facility] White blood cell (WBC) count Ordered By: Duc Vicente on 05-31-2025 WBC (Bld) [#/Vol] 6.0 10*3/uL 4.4-11.0 [facility] White blood cell countOrdere d By: Duc Vicente on 05-31-2025 White blood cell count 0-5 SEEN /hpf 0-5 [facility] Absolute lymphocyte countOrd ered By: Pepe Au on 05-22-2025 Lymphocytes Auto (Unsp spec) [#/Vol] 1.86 10*3/uL 0.83-4.51 [facility] Absolute neutrophil countOrd ered By: Pepe Au on 05-22-2025 Neutrophils (Bld) [#/Vol] 4.3 10*3/uL 2.0-7.7 [facility] Anion gap in Serum or Plasma Ordered By: Toñito Espino on 05-22-2025 Anion gap [Moles/Vol] 15 mmol/L 5-15 [facility] [place] Automated lymphocyte count a s percentage of total leukocytesOrdered By: Pepe Au on 05-22-2025 Lymphocytes/100 WBC Auto (Unsp spec) 27.0 % - [facility] BUN/creatinine ratioOrdered By: Toñito Espino on 05-22-2025 Urea nitrogen/Creatinine [Mass ratio] 18.4 mg/mg 10- [facility] Basophil percentageOrdered B y: Pepe Au on 05-22-2025 Basophils/100 WBC (Bld) 0.4 % 0-1 [facility] Bilirubin, totalOrdered By: Toñito Espino on 05-22-2025 Bilirubin [Mass/Vol] 0.77 mg/dL 0.00-1.30 [facility] Calculated very low density lipoprotein (VLDL) cholesterol measurementOrdered By: Toñito Espino on 05-22-2025 Calculated very low density lipoprotein (VLDL) cholesterol measurement 23 mg/dL [facility] Carbon dioxide, total [Moles /volume] in Central venous bloodOrdered By: Toñito Espino on 05-22-2025 CO2 [Moles/Vol] 19.3 mmol/L Low 21.0-32.0 [facility] Chloride assayOrdered By: Vicente Espino on 05-22-2025 Chloride [Moles/Vol] 108 mmol/L 98-108 [facility] Eosinophil percentageOrdered By: Pepe Au on 05-22-2025 Eosinophils/100 WBC (Bld) 1.5 % 0-5 [facility] Erythrocyte distribution wid th ratioOrdered By: Pepe Au on 05-22-2025 Erythrocyte distribution width (RBC) [Ratio] 15.2 % High 11.6-14.6 [facility] Erythrocyte distribution wid th standard deviationOrdered By: Pepe Au on 05-22-2025 Erythrocyte distribution width (RBC) [Ratio] 56.1 fl High 35.1-43.9 [facility] Glomerular filtration rate ( GFR) estimation/1.73 sq m using serum, plasma, or whole bOrdered By: Toñito Espino on 05-22-2025 GFR/1.73 sq M.predicted among non-blacks MDRD (S/P/Bld) [Vol rate/Area] 25 mL/min/{1.73_m2} Low >60 [facility] Comment on above: mL/min/1.73m2 CKD-EP I Creatinine Equation (2020) Hematocrit Auto (Bld) [Volum e fraction]Ordered By: Pepe Au on 05-22-2025 Hematocrit (Bld) [Volume fraction] 38.0 % Low 40-54 [facility] Hemoglobin A1c percentageOrd ered By: Toñito Espino on 05-22-2025 HbA1c (Bld) [Mass fraction] 5.7 % <5.7 [facility] Comment on above: Normal < 5.7 % Predi abetic 5.7 - 6.4 % Diabetic >or= 6.5 % Please note range changes. Hemoglobin measurementOrdere d By: Pepe Au on 05-22-2025 Hemoglobin (Bld) [Mass/Vol] 12.2 g/dL Low 13.0-16.5 [facility] Immature granulocytes/100 WB C Auto (Bld)Ordered By: Pepe Au on 05-22-2025 Immature granulocytes/100 WBC (Bld) 0.400 % 0.0-0.9 [facility] Comment on above: IG% - Immature Granu locytes (promyelocytes, myelocytes and metamyelocytes) > 1% indicates that a LEFT SHIFT is Present. Iron measurement (mass/mass) Ordered By: Pepe Au on 05-22-2025 Iron (Unsp spec) [Mass/Mass] 72 ug/dL 65-175 [facility] LDL calc ser/plasOrdered By: Toñito Espino on 05-22-2025 Cholesterol in LDL [Mass/Vol] 80 mg/dL [facility] Comment on above: Mefpxodhbr=080-472 m g/dL & Higher Grcm=563 mg/dL or greater Laboratory - Chemistry and C hemistry - challengeOrdered By: Toñito Espino on 05-22-2025 AST [Catalytic activity/Vol] 26 U/L <38 [facility] MCV (mean corpuscular volume ) determinationOrdered By: Pepe Au on 05-22-2025 MCV (RBC) [Entitic vol] 101.3 fL High 80-94 [facility] Mean corpuscular hemoglobin (MCH) determinationOrdered By: Pepe Au on 05-22-2025 MCH (RBC) [Entitic mass] 32.5 pg High 27.0-32.0 [facility] Mean corpuscular hemoglobin concentration (MCHC) determinationOrdered By: Pepe Au on 05-22-2025 MCHC (RBC) [Mass/Vol] 32.1 g/dL 32-36 [facility] Mean platelet volume determi nationOrdered By: Pepe Au on 05-22-2025 Platelet mean volume (Bld) [Entitic vol] 11.0 fL 6.2-12.0 [facility] Monocyte percentageOrdered B y: Pepe Au on 05-22-2025 Monocytes/100 WBC (Bld) 8.0 % 0-10 [facility] Neutrophil percentageOrdered By: Pepe Au on 05-22-2025 Neutrophils/100 WBC (Bld) 62.7 % 47-70 [facility] No Panel InformationOrdered By: Pepe Au on 05-22-2025 Unsaturated Iron Binding Capacity 186 ug/dL Low 228-428 [facility] 186 ug/dL Low 228-428 [facility] No Panel InformationOrdered By: Toñito Espino on 05-22-2025 26 U/L <38 [facility] Nucleated red blood cell per centageOrdered By: Pepe Au on 05-22-2025 Nucleated RBC/100 WBC (Bld) [Ratio] 0 % 0-5 [facility] Platelet countOrdered By: Chaim Au on 05-22-2025 Platelets (Bld) [#/Vol] 101 10*3/uL Low 150-450 [facility] Potassium measurement (mass/ volume)Ordered By: Toñito Espino on 05-22-2025 Potassium (Unsp spec) [Mass/Vol] 5.1 mmol/L 3.3-5.1 [facility] RBC Auto (Bld) [#/Vol]Ordere d By: Pepe Au on 05-22-2025 RBC (Bld) [#/Vol] 3.75 10*6/uL Low 4.6-6.2 [facility] Screening total cholesterol/ high density lipoprotein (HDL) cholesterol ratioOrdered By: Toñito Espino on 05-22-2025 Cholesterol.total/Choles terol in HDL [Mass ratio] 3.65 {ratio} [facility] Serum creatinine measurement (mass/volume)Ordered By: Toñito Espino on 05-22-2025 Creatinine [Mass/Vol] 2.44 mg/dL High 0.70-1.20 [facility] [place] Serum globulin measurementOr dered By: Toñito Espino on 05-22-2025 Globulin (S) [Mass/Vol] 3.6 g/dL 2.2-4.2 [facility] Serum glucose measurement (m ass/volume)Ordered By: Toñito Espino on 05-22-2025 Glucose [Mass/Vol] 104 mg/dL High 70-99 [facility] Serum or plasma alanine irving otransferase (ALT) measurementOrdered By: Toñito Espino on 05-22-2025 ALT [Catalytic activity/Vol] 12 U/L <47 [facility] Serum or plasma albumin aubree urement (mass/volume)Ordered By: Toñito Espino on 05-22-2025 Albumin [Mass/Vol] 4.1 g/dL 3.4-4.8 [facility] Serum or plasma albumin/glob ulin mass ratioOrdered By: Toñito Espino on 05-22-2025 Albumin/Globulin [Mass ratio] 1.2 {ratio} 0.9-2.4 [facility] Serum or plasma alkaline tamiko sphatase measurementOrdered By: Toñito Espino on 05-22-2025 ALP [Catalytic activity/Vol] 192 U/L High 40-129 [facility] Serum or plasma calcium aubree urement (mass/volume)Ordered By: Toñito Espino on 05-22-2025 Calcium [Mass/Vol] 10.1 mg/dL 7.6-11.0 [facility] Serum or plasma cholesterol in HDL measurement (mass/volume)Ordered By: Toñito Espino on 05-22-2025 Cholesterol in HDL [Mass/Vol] 39 mg/dL Low >40 [facility] Comment on above: National Cholesterol Education Program (NCEP) guidelines:<40 mg/dL: Low HDL-cholesterol (major risk factor for CHD)>= 60 mg/dL: High HDL-cholesterol (negative risk factor for CHD)HDL-cholesterol is affected by a number of factors, e.g. smoking, exercise, hormones, sex and age. Serum or plasma cholesterol measurement (mass/volume)Ordered By: Toñito Espino on 05-22-2025 Cholesterol [Mass/Vol] 142 mg/dL <[address] [facility] Comment on above: Cholesterol level, D esirable <200 mg/dLBorderline high cholesterol 200-239 mg/dLHigh cholesterol >=240 mg/dLRecommendations of the NCEP Adult Treatment Panel for the following risk-cutoff thresholds for the [place] population. Serum or plasma ferritin laurie surement (mass/volume)Ordered By: Pepe Au on 05-22-2025 Ferritin [Mass/Vol] 184 ng/mL 37-417 [facility] Serum or plasma iron saturat ion measurement (mass fraction)Ordered By: Pepe Au on 05-22-2025 Iron saturation [Mass fraction] 28.0 % 9-55 [facility] Serum or plasma urea nitroge n measurement (mass/volume)Ordered By: Toñito Espino on 05-22-2025 Urea nitrogen [Mass/Vol] 45 mg/dL High 4-19 [facility] Sodium levelOrdered By: Cornelio Espino on 05-22-2025 Sodium [Moles/Vol] 142 mmol/L 133-145 [facility] TSH DL <= 0.005 mIU/L QnOrde red By: Toñito Espino on 05-22-2025 TSH Qn 7.250 uIU/mL High 0.300-4.200 [facility] Total proteinOrdered By: Sujit Espino on 05-22-2025 Protein [Mass/Vol] 7.7 g/dL 5.9-8.4 [facility] Triglycerides measurementOrd ered By: Toñito Espino on 05-22-2025 Triglyceride [Mass/Vol] 115 mg/dL <199 [facility] Comment on above: The drugs N-Acetylcy steine and Metamizole may falsely depress this assay. Normal range: <150 mg/dLBorderline High: 150-199 mg/dLHigh: 200-499 mg/dLVery High: >500 mg/dL White blood cell (WBC) count Ordered By: Pepe Au on 05-22-2025 WBC (Bld) [#/Vol] 6.9 10*3/uL 4.4-11.0 [facility] Absolute lymphocyte countOrd ered By: Pepe Au on 04-25-2025 Lymphocytes Auto (Unsp spec) [#/Vol] 1.73 10*3/uL 0.83-4.51 [facility] Absolute neutrophil countOrd ered By: Pepe Au on 04-25-2025 Neutrophils (Bld) [#/Vol] 5.4 10*3/uL 2.0-7.7 [facility] Anion gap in Serum or Plasma Ordered By: Pepe Au on 04-25-2025 Anion gap [Moles/Vol] 13 mmol/L 5-15 [facility] [place] Automated lymphocyte count a s percentage of total leukocytesOrdered By: Pepe Au on 04-25-2025 Lymphocytes/100 WBC Auto (Unsp spec) 22.3 % 19-41 [facility] BUN/creatinine ratioOrdered By: Pepe Au on 04-25-2025 Urea nitrogen/Creatinine [Mass ratio] 21.2 mg/mg High 10-20 [facility] Basophil percentageOrdered B y: Pepe Au on 04-25-2025 Basophils/100 WBC (Bld) 0.5 % 0-1 [facility] Carbon dioxide, total [Moles /volume] in Central venous bloodOrdered By: Pepe Au on 04-25-2025 CO2 [Moles/Vol] 21.1 mmol/L 21.0-32.0 [facility] Chloride assayOrdered By: Chaim Au on 04-25-2025 Chloride [Moles/Vol] 109 mmol/L High 98-108 [facility] Eosinophil percentageOrdered By: Pepe Au on 04-25-2025 Eosinophils/100 WBC (Bld) 1.3 % 0-5 [facility] Erythrocyte distribution wid th ratioOrdered By: Pepe Au on 04-25-2025 Erythrocyte distribution width (RBC) [Ratio] 15.1 % High 11.6-14.6 [facility] Erythrocyte distribution wid th standard deviationOrdered By: Pepe Au on 04-25-2025 Erythrocyte distribution width (RBC) [Ratio] 56.2 fl High 35.1-43.9 [facility] Glomerular filtration rate ( GFR) estimation/1.73 sq m using serum, plasma, or whole bOrdered By: Pepe Au on 04-25-2025 GFR/1.73 sq M.predicted among non-blacks MDRD (S/P/Bld) [Vol rate/Area] 25 mL/min/{1.73_m2} Low >60 [facility] Comment on above: mL/min/1.73m2 CKD-EP I Creatinine Equation (2020) Hematocrit Auto (Bld) [Volum e fraction]Ordered By: Pepe Au on 04-25-2025 Hematocrit (Bld) [Volume fraction] 34.1 % Low 40-54 [facility] Hemoglobin measurementOrdere d By: Pepe Au on 04-25-2025 Hemoglobin (Bld) [Mass/Vol] 10.9 g/dL Low 13.0-16.5 [facility] Immature granulocytes/100 WB C Auto (Bld)Ordered By: Pepe Au on 04-25-2025 Immature granulocytes/100 WBC (Bld) 0.300 % 0.0-0.9 [facility] Comment on above: IG% - Immature Granu locytes (promyelocytes, myelocytes and metamyelocytes) > 1% indicates that a LEFT SHIFT is Present. Iron measurement (mass/mass) Ordered By: Pepe Au on 04-25-2025 Iron (Unsp spec) [Mass/Mass] 68 ug/dL 65-175 [facility] MCV (mean corpuscular volume ) determinationOrdered By: Pepe Au on 04-25-2025 MCV (RBC) [Entitic vol] 101.2 fL High 80-94 [facility] Mean corpuscular hemoglobin (MCH) determinationOrdered By: Pepe Au on 04-25-2025 MCH (RBC) [Entitic mass] 32.3 pg High 27.0-32.0 [facility] Mean corpuscular hemoglobin concentration (MCHC) determinationOrdered By: Pepe Au on 04-25-2025 MCHC (RBC) [Mass/Vol] 32.0 g/dL 32-36 [facility] [place] Mean platelet volume determi nationOrdered By: Pepe Au on 04-25-2025 Platelet mean volume (Bld) [Entitic vol] 10.6 fL 6.2-12.0 [facility] Monocyte percentageOrdered B y: Pepe Au on 04-25-2025 Monocytes/100 WBC (Bld) 6.2 % 0-10 [facility] Neutrophil percentageOrdered By: Pepe Au on 04-25-2025 Neutrophils/100 WBC (Bld) 69.4 % 47-70 [facility] No Panel InformationOrdered By: Pepe Au on 04-25-2025 Unsaturated Iron Binding Capacity 155 ug/dL Low 228-428 [facility] 155 ug/dL Low 228-428 [facility] Nucleated red blood cell per centageOrdered By: Pepe Au on 04-25-2025 Nucleated RBC/100 WBC (Bld) [Ratio] 0 % 0-5 [facility] Platelet countOrdered By: Chaim Au on 04-25-2025 Platelets (Bld) [#/Vol] 105 10*3/uL Low 150-450 [facility] Potassium measurement (mass/ volume)Ordered By: Pepe Au on 04-25-2025 Potassium (Unsp spec) [Mass/Vol] 5.2 mmol/L High 3.3-5.1 [facility] RBC Auto (Bld) [#/Vol]Ordere d By: Pepe Au on 04-25-2025 RBC (Bld) [#/Vol] 3.37 10*6/uL Low 4.6-6.2 [facility] Serum creatinine measurement (mass/volume)Ordered By: Pepe Au on 04-25-2025 Creatinine [Mass/Vol] 2.50 mg/dL High 0.70-1.20 [facility] Serum glucose measurement (m ass/volume)Ordered By: Pepe Au on 04-25-2025 Glucose [Mass/Vol] 131 mg/dL High 70-99 [facility] Serum or plasma albumin aubree urement (mass/volume)Ordered By: Pepe Au on 04-25-2025 Albumin [Mass/Vol] 3.8 g/dL 3.4-4.8 [facility] Serum or plasma calcium aubree urement (mass/volume)Ordered By: Pepe Au on 04-25-2025 Calcium [Mass/Vol] 9.9 mg/dL 7.6-11.0 [facility] Serum or plasma ferritin laurie surement (mass/volume)Ordered By: Pepe Au on 04-25-2025 Ferritin [Mass/Vol] 216 ng/mL 37-417 [facility] Serum or plasma iron saturat ion measurement (mass fraction)Ordered By: Pepe Au on 04-25-2025 Iron saturation [Mass fraction] 30.0 % 9-55 [facility] Comment on above: Previous reported re sult: 30.0 %Edited by: GWENDOLYN on 04/25/25:1554 Serum or plasma urea nitroge n measurement (mass/volume)Ordered By: Pepe Au on 04-25-2025 Urea nitrogen [Mass/Vol] 53 mg/dL High 4- [facility] Sodium levelOrdered By: Lety Au on 04-25-2025 Sodium [Moles/Vol] 143 mmol/L 133-145 [facility] White blood cell (WBC) count Ordered By: Pepe Au on 04-25-2025 WBC (Bld) [#/Vol] 7.8 10*3/uL 4.4-11.0 [facility] Absolute lymphocyte countOrd ered By: Pepe Au on 04-15-2025 Lymphocytes Auto (Unsp spec) [#/Vol] 1.38 10*3/uL 0.83-4.51 [facility] Absolute neutrophil countOrd ered By: Pepe Au on 04-15-2025 Neutrophils (Bld) [#/Vol] 5.0 10*3/uL 2.0-7.7 [facility] Anion gap in Serum or Plasma Ordered By: Pepe Au on 04-15-2025 Anion gap [Moles/Vol] 12 mmol/L 5-15 [facility] [place] Automated lymphocyte count a s percentage of total leukocytesOrdered By: Pepe Au on 04-15-2025 Lymphocytes/100 WBC Auto (Unsp spec) 19.4 % 19-41 [facility] BUN/creatinine ratioOrdered By: Peep Au on 04-15-2025 Urea nitrogen/Creatinine [Mass ratio] 20.4 mg/mg High 10-20 [facility] Basophil percentageOrdered B y: Pepe Au on 04-15-2025 Basophils/100 WBC (Bld) 0.6 % 0-1 [facility] Carbon dioxide, total [Moles /volume] in Central venous bloodOrdered By: Pepe Au on 04-15-2025 CO2 [Moles/Vol] 21.4 mmol/L 21.0-32.0 [facility] Chloride assayOrdered By: Chaim Au on 04-15-2025 Chloride [Moles/Vol] 108 mmol/L 98-108 [facility] Eosinophil percentageOrdered By: Pepe Au on 04-15-2025 Eosinophils/100 WBC (Bld) 2.7 % 0-5 [facility] Erythrocyte distribution wid th ratioOrdered By: Pepe Au on 04-15-2025 Erythrocyte distribution width (RBC) [Ratio] 15.1 % High 11.6-14.6 [facility] Erythrocyte distribution wid th standard deviationOrdered By: Pepe Au on 04-15-2025 Erythrocyte distribution width (RBC) [Ratio] 56.5 fl High 35.1-43.9 [facility] Glomerular filtration rate ( GFR) estimation/1.73 sq m using serum, plasma, or whole bOrdered By: Pepe Au on 04-15-2025 GFR/1.73 sq M.predicted among non-blacks MDRD (S/P/Bld) [Vol rate/Area] 23 mL/min/{1.73_m2} Low >60 [facility] Comment on above: mL/min/1.73m2 CKD-EP I Creatinine Equation (2020) Hematocrit Auto (Bld) [Volum e fraction]Ordered By: Pepe Au on 04-15-2025 Hematocrit (Bld) [Volume fraction] 34.5 % Low 40-54 [facility] Hemoglobin measurementOrdere d By: Pepe Au on 04-15-2025 Hemoglobin (Bld) [Mass/Vol] 10.9 g/dL Low 13.0-16.5 [facility] Immature granulocytes/100 WB C Auto (Bld)Ordered By: Pepe Au on 04-15-2025 Immature granulocytes/100 WBC (Bld) 0.400 % 0.0-0.9 [facility] Comment on above: IG% - Immature Granu locytes (promyelocytes, myelocytes and metamyelocytes) > 1% indicates that a LEFT SHIFT is Present. Iron measurement (mass/mass) Ordered By: Pepe Au on 04-15-2025 Iron (Unsp spec) [Mass/Mass] 70 ug/dL 65-175 [facility] MCV (mean corpuscular volume ) determinationOrdered By: Pepe Au on 04-15-2025 MCV (RBC) [Entitic vol] 101.2 fL High 80-94 [facility] Mean corpuscular hemoglobin (MCH) determinationOrdered By: Pepe Au on 04-15-2025 MCH (RBC) [Entitic mass] 32.0 pg 27.0-32.0 [facility] Mean corpuscular hemoglobin concentration (MCHC) determinationOrdered By: Pepe Au on 04-15-2025 MCHC (RBC) [Mass/Vol] 31.6 g/dL Low 32-36 [facility] [place] Mean platelet volume determi nationOrdered By: Pepe Au on 04-15-2025 Platelet mean volume (Bld) [Entitic vol] 11.7 fL 6.2-12.0 [facility] Monocyte percentageOrdered B y: Pepe Au on 04-15-2025 Monocytes/100 WBC (Bld) 6.6 % 0-10 [facility] Neutrophil percentageOrdered By: Pepe Au on 04-15-2025 Neutrophils/100 WBC (Bld) 70.3 % High 47-70 [facility] No Panel InformationOrdered By: Pepe Au on 04-15-2025 Unsaturated Iron Binding Capacity 163 ug/dL Low 228-428 [facility] 163 ug/dL Low 228-428 [facility] Nucleated red blood cell per centageOrdered By: Pepe Au on 04-15-2025 Nucleated RBC/100 WBC (Bld) [Ratio] 0 % 0-5 [facility] Platelet countOrdered By: Chaim Au on 04-15-2025 Platelets (Bld) [#/Vol] 112 10*3/uL Low 150-450 [facility] Potassium measurement (mass/ volume)Ordered By: Pepe Au on 04-15-2025 Potassium (Unsp spec) [Mass/Vol] 4.8 mmol/L 3.3-5.1 [facility] RBC Auto (Bld) [#/Vol]Ordere d By: Pepe Au on 04-15-2025 RBC (Bld) [#/Vol] 3.41 10*6/uL Low 4.6-6.2 [facility] Random urine creatinine aubree urement (mass/volume)Ordered By: Pepe Au on 04-15-2025 Creatinine Unsp time (U) [Mass/Vol] 89.70 mg/dL 39.00-259.00 [facility] Serum creatinine measurement (mass/volume)Ordered By: Pepe Au on 04-15-2025 Creatinine [Mass/Vol] 2.63 mg/dL High 0.70-1.20 [facility] [place] Serum glucose measurement (m ass/volume)Ordered By: Pepe Au on 04-15-2025 Glucose [Mass/Vol] 139 mg/dL High 70-99 [facility] Serum or plasma albumin aubree urement (mass/volume)Ordered By: Peep Au on 04-15-2025 Albumin [Mass/Vol] 3.9 g/dL 3.4-4.8 [facility] Serum or plasma calcium aubree urement (mass/volume)Ordered By: Pepe Au on 04-15-2025 Calcium [Mass/Vol] 9.3 mg/dL 7.6-11.0 [facility] Serum or plasma ferritin laurie surement (mass/volume)Ordered By: Pepe Au on 04-15-2025 Ferritin [Mass/Vol] 186 ng/mL 37-417 [facility] Serum or plasma iron saturat ion measurement (mass fraction)Ordered By: Pepe Au on 04-15-2025 Iron saturation [Mass fraction] 30.0 % 9-55 [facility] Serum or plasma urea nitroge n measurement (mass/volume)Ordered By: Pepe Au on 04-15-2025 Urea nitrogen [Mass/Vol] 54 mg/dL High 4-19 [facility] Serum or plasma uric acid me asurement (mass/volume)Ordered By: Pepe Au on 04-15-2025 Urate [Mass/Vol] 5.6 mg/dL 3.5-7.2 [facility] Comment on above: The drugs N-Acetylcy steine and Metamizole may falsely depress this assay. Sodium levelOrdered By: Lety Au on 04-15-2025 Sodium [Moles/Vol] 141 mmol/L 133-145 [facility] Urine protein measurement (m ass/volume)Ordered By: Pepe Au on 04-15-2025 Protein (U) [Mass/Vol] 63.0 mg/dL High 0.0-12.[address] [facility] Urine protein/creatinine mas s ratioOrdered By: Pepe Au on 04-15-2025 Protein/Creatinine (U) [Mass ratio] 702 mg/g CRE High 0-200 [facility] White blood cell (WBC) count Ordered By: Pepe Au on 04-15-2025 WBC (Bld) [#/Vol] 7.1 10*3/uL 4.4-11.0 [facility] Absolute lymphocyte countOrd ered By: Pepe Au on 03-28-2025 Lymphocytes Auto (Unsp spec) [#/Vol] 1.95 10*3/uL 0.83-4.51 [facility] Absolute neutrophil countOrd ered By: Pepe Au on 03-28-2025 Neutrophils (Bld) [#/Vol] 5.5 10*3/uL 2.0-7.7 [facility] Anion gap in Serum or Plasma Ordered By: Pepe Au on 03-28-2025 Anion gap [Moles/Vol] 13 mmol/L 5-15 [facility] [place] Automated lymphocyte count a s percentage of total leukocytesOrdered By: Pepe Au on 03-28-2025 Lymphocytes/100 WBC Auto (Unsp spec) 23.7 % 19-41 [facility] BUN/creatinine ratioOrdered By: Pepe Au on 03-28-2025 Urea nitrogen/Creatinine [Mass ratio] 20.7 mg/mg High 10-20 [facility] Basophil percentageOrdered B y: Pepe Au on 03-28-2025 Basophils/100 WBC (Bld) 0.5 % 0-1 [facility] Carbon dioxide, total [Moles /volume] in Central venous bloodOrdered By: Pepe Au on 03-28-2025 CO2 [Moles/Vol] 21.1 mmol/L 21.0-32.0 [facility] Chloride assayOrdered By: Chaim Au on 03-28-2025 Chloride [Moles/Vol] 108 mmol/L 98-108 [facility] Eosinophil percentageOrdered By: Pepe Au on 03-28-2025 Eosinophils/100 WBC (Bld) 1.9 % 0-5 [facility] Erythrocyte distribution wid th ratioOrdered By: Pepe Au on 03-28-2025 Erythrocyte distribution width (RBC) [Ratio] 14.6 % 11.6-14.6 [facility] Erythrocyte distribution wid th standard deviationOrdered By: Pepe Au on 03-28-2025 Erythrocyte distribution width (RBC) [Ratio] 53.0 fl High 35.1-43.9 [facility] Glomerular filtration rate ( GFR) estimation/1.73 sq m using serum, plasma, or whole bOrdered By: Pepe Au on 03-28-2025 GFR/1.73 sq M.predicted among non-blacks MDRD (S/P/Bld) [Vol rate/Area] 24 mL/min/{1.73_m2} Low >60 [facility] Comment on above: mL/min/1.73m2 CKD-EP I Creatinine Equation (2020) Hematocrit Auto (Bld) [Volum e fraction]Ordered By: Pepe Au on 03-28-2025 Hematocrit (Bld) [Volume fraction] 35.2 % Low 40-54 [facility] Hemoglobin measurementOrdere d By: Pepe Au on 03-28-2025 Hemoglobin (Bld) [Mass/Vol] 11.2 g/dL Low 13.0-16.5 [facility] Immature granulocytes/100 WB C Auto (Bld)Ordered By: Pepe Au on 03-28-2025 Immature granulocytes/100 WBC (Bld) 0.500 % 0.0-0.9 [facility] Comment on above: IG% - Immature Granu locytes (promyelocytes, myelocytes and metamyelocytes) > 1% indicates that a LEFT SHIFT is Present. Iron measurement (mass/mass) Ordered By: Pepe Au on 03-28-2025 Iron (Unsp spec) [Mass/Mass] 93 ug/dL 65-175 [facility] MCV (mean corpuscular volume ) determinationOrdered By: Pepe Au on 03-28-2025 MCV (RBC) [Entitic vol] 100.0 fL High 80-94 [facility] Mean corpuscular hemoglobin (MCH) determinationOrdered By: Pepe Au on 03-28-2025 MCH (RBC) [Entitic mass] 31.8 pg 27.0-32.0 [facility] Mean corpuscular hemoglobin concentration (MCHC) determinationOrdered By: Pepe Au on 03-28-2025 MCHC (RBC) [Mass/Vol] 31.8 g/dL Low 32-36 [facility] [place] Mean platelet volume determi nationOrdered By: Pepe Au on 03-28-2025 Platelet mean volume (Bld) [Entitic vol] 11.5 fL 6.2-12.0 [facility] Monocyte percentageOrdered B y: Pepe Au on 03-28-2025 Monocytes/100 WBC (Bld) 6.6 % 0-10 [facility] Neutrophil percentageOrdered By: Pepe Au on 03-28-2025 Neutrophils/100 WBC (Bld) 66.8 % 47-70 [facility] No Panel InformationOrdered By: Pepe Au on 03-28-2025 Unsaturated Iron Binding Capacity 143 ug/dL Low 228-428 [facility] 143 ug/dL Low 228-428 [facility] Nucleated red blood cell per centageOrdered By: Pepe Au on 03-28-2025 Nucleated RBC/100 WBC (Bld) [Ratio] 0 % 0-5 [facility] Platelet countOrdered By: Chaim Au on 03-28-2025 Platelets (Bld) [#/Vol] 107 10*3/uL Low 150-450 [facility] Potassium measurement (mass/ volume)Ordered By: Pepe Au on 03-28-2025 Potassium (Unsp spec) [Mass/Vol] 5.3 mmol/L High 3.3-5.1 [facility] RBC Auto (Bld) [#/Vol]Ordere d By: Pepe Au on 03-28-2025 RBC (Bld) [#/Vol] 3.52 10*6/uL Low 4.6-6.2 [facility] Serum creatinine measurement (mass/volume)Ordered By: Pepe Au on 03-28-2025 Creatinine [Mass/Vol] 2.56 mg/dL High 0.70-1.20 [facility] Serum glucose measurement (m ass/volume)Ordered By: Pepe Au on 03-28-2025 Glucose [Mass/Vol] 130 mg/dL High 70-99 [facility] Serum or plasma albumin aubree urement (mass/volume)Ordered By: Pepe Au on 03-28-2025 Albumin [Mass/Vol] 4.0 g/dL 3.4-4.8 [facility] Serum or plasma calcium aubree urement (mass/volume)Ordered By: Pepe Au on 03-28-2025 Calcium [Mass/Vol] 10.6 mg/dL 7.6-11.0 [facility] Serum or plasma ferritin laurie surement (mass/volume)Ordered By: Pepe Au on 03-28-2025 Ferritin [Mass/Vol] 191 ng/mL 37-417 [facility] Serum or plasma iron saturat ion measurement (mass fraction)Ordered By: Pepe Au on 03-28-2025 Iron saturation [Mass fraction] 39.0 % 9-55 [facility] Comment on above: Previous reported re sult: 39.0 %Edited by: GWENDOLYN on 03/28/25:1546 Serum or plasma urea nitroge n measurement (mass/volume)Ordered By: Pepe Au on 03-28-2025 Urea nitrogen [Mass/Vol] 53 mg/dL High 4-19 [facility] Sodium levelOrdered By: Lety Au on 03-28-2025 Sodium [Moles/Vol] 142 mmol/L 133-145 [facility] White blood cell (WBC) count Ordered By: Pepe Au on 03-28-2025 WBC (Bld) [#/Vol] 8.2 10*3/uL 4.4-11.0 [facility] Absolute lymphocyte countOrd ered By: Pepe Au on 02-26-2025 Lymphocytes Auto (Unsp spec) [#/Vol] 1.72 10*3/uL 0.83-4.51 [facility] Absolute neutrophil countOrd ered By: Pepe Au on 02-26-2025 Neutrophils (Bld) [#/Vol] 5.7 10*3/uL 2.0-7.7 [facility] Anion gap in Serum or Plasma Ordered By: Pepe Au on 02-26-2025 Anion gap [Moles/Vol] 16 mmol/L High 5-15 [facility] [place] Automated lymphocyte count a s percentage of total leukocytesOrdered By: Pepe Au on 02-26-2025 Lymphocytes/100 WBC Auto (Unsp spec) 21.0 % 19-41 [facility] BUN/creatinine ratioOrdered By: Pepe Au on 02-26-2025 Urea nitrogen/Creatinine [Mass ratio] 18.1 mg/mg 10-20 [facility] Basophil percentageOrdered B y: Pepe Au on 02-26-2025 Basophils/100 WBC (Bld) 0.4 % 0-1 [facility] Calculated total iron bindin g capacityOrdered By: Pepe Au on 02-26-2025 Total Iron Binding Capacity 218 ug/dL Low 250-450 [facility] Carbon dioxide, total [Moles /volume] in Central venous bloodOrdered By: Pepe Au on 02-26-2025 CO2 [Moles/Vol] 19.8 mmol/L Low 21.0-32.0 [facility] Chloride assayOrdered By: Chaim Au on 02-26-2025 Chloride [Moles/Vol] 107 mmol/L 98-108 [facility] Eosinophil percentageOrdered By: Pepe Au on 02-26-2025 Eosinophils/100 WBC (Bld) 2.3 % 0-5 [facility] Erythrocyte distribution wid th (RBC) [Ratio]Ordered By: Pepe Au on 02-26-2025 Erythrocyte distribution width (RBC) [Entitic vol] 49.2 fL High 35.1-43.9 [facility] Erythrocyte distribution wid th ratioOrdered By: Pepe Au on 02-26-2025 Erythrocyte distribution width (RBC) [Ratio] 13.6 % 11.6-14.6 [facility] Erythrocyte distribution wid th standard deviationOrdered By: Pepe Au on 02-26-2025 Erythrocyte distribution width (RBC) [Ratio] 49.2 fl High 35.1-43.9 [facility] GFR/1.73 sq M.predicted henry g non-blacks MDRD (S/P/Bld) [Vol rate/Area]Ordered By: Pepe Au on 02-26-2025 Estimated GFR (MDRD) Non-Af Amer 25 Low >60 [facility] Comment on above: mL/min/1.73m2 CKD-EP I Creatinine Equation (2020) Glomerular filtration rate ( GFR) estimation/1.73 sq m using serum, plasma, or whole bOrdered By: Pepe Au on 02-26-2025 GFR/1.73 sq M.predicted among non-blacks MDRD (S/P/Bld) [Vol rate/Area] 25 mL/min/{1.73_m2} Low >60 [facility] Comment on above: mL/min/1.73m2 CKD-EP I Creatinine Equation (2020) Hematocrit Auto (Bld) [Volum e fraction]Ordered By: Pepe Au on 02-26-2025 Hematocrit (Bld) [Volume fraction] 35.4 % Low 40-54 [facility] Hemoglobin measurementOrdere d By: Pepe Au on 02-26-2025 Hemoglobin (Bld) [Mass/Vol] 11.3 g/dL Low 13.0-16.5 [facility] Immature granulocytes/100 WB C Auto (Bld)Ordered By: Pepe Au on 02-26-2025 Immature granulocytes/100 WBC (Bld) 0.200 % 0.0-0.9 [facility] Comment on above: IG% - Immature Granu locytes (promyelocytes, myelocytes and metamyelocytes) > 1% indicates that a LEFT SHIFT is Present. Iron (Unsp spec) [Mass/Mass] Ordered By: Pepe Au on 02-26-2025 Iron [Mass/Vol] 75 ug/dL 65-175 [facility] Iron measurement (mass/mass) Ordered By: Pepe Au on 02-26-2025 Iron (Unsp spec) [Mass/Mass] 75 ug/dL 65-175 [facility] Iron saturation [Mass fracti on]Ordered By: Pepe Au on 02-26-2025 Iron Saturation 34.4 % 9-55 [facility] Comment on above: Previous reported re sult: 34.0 %Edited by: JUSTIN on 02/26/25:1611 AMENDED REPORT 02/26/25 1611 IRON SATURATION previously reported as: 34.0 % Lymphocytes Auto (Unsp spec) [#/Vol]Ordered By: Pepe Au on 02-26-2025 Lymphocytes (Bld) [#/Vol] 1.72 10*3/uL 0.83-4.51 [facility] Lymphocytes/100 WBC Auto (Un sp spec)Ordered By: Pepe Au on 02-26-2025 Lymphocytes/100 WBC (Bld) 21.0 % 19-41 [facility] MCV (mean corpuscular volume ) determinationOrdered By: Pepe Au on 02-26-2025 MCV (RBC) [Entitic vol] 98.9 fL High 80-94 [facility] Mean corpuscular hemoglobin (MCH) determinationOrdered By: Pepe Au on 02-26-2025 MCH (RBC) [Entitic mass] 31.6 pg 27.0-32.0 [facility] Mean corpuscular hemoglobin concentration (MCHC) determinationOrdered By: Pepe Au on 02-26-2025 MCHC (RBC) [Mass/Vol] 31.9 g/dL Low 32-36 [facility] [place] Mean platelet volume determi nationOrdered By: Pepe Au on 02-26-2025 Platelet mean volume (Bld) [Entitic vol] 10.8 fL 6.2-12.0 [facility] Monocyte percentageOrdered B y: Pepe Au on 02-26-2025 Monocytes/100 WBC (Bld) 7.0 % 0-10 [facility] Neutrophil percentageOrdered By: Pepe Au on 02-26-2025 Neutrophils/100 WBC (Bld) 69.1 % 47-70 [facility] No Panel InformationOrdered By: Pepe Au on 02-26-2025 Unsaturated Iron Binding Capacity 143 ug/dL Low 228-428 [facility] 143 ug/dL Low 228-428 [facility] Nucleated red blood cell per centageOrdered By: Pepe Au on 02-26-2025 Nucleated RBC/100 WBC (Bld) [Ratio] 0 % 0-5 [facility] PTH intactOrdered By: Paula Au on 02-26-2025 Parathyroid Hormone (Intact) 49 pg/mL 11-61 [facility] Platelet countOrdered By: Chaim Au on 02-26-2025 Platelets (Bld) [#/Vol] 114 10*3/uL Low 150-450 [facility] Potassium (Unsp spec) [Mass/ Vol]Ordered By: Pepe Au on 02-26-2025 Potassium [Moles/Vol] 4.8 mmol/L 3.3-5.1 [facility] [place] Potassium measurement (mass/ volume)Ordered By: Pepe Au on 02-26-2025 Potassium (Unsp spec) [Mass/Vol] 4.8 mmol/L 3.3-5.1 [facility] RBC Auto (Bld) [#/Vol]Ordere d By: Pepe Au on 02-26-2025 RBC (Bld) [#/Vol] 3.58 10*6/uL Low 4.6-6.2 [facility] Serum creatinine measurement (mass/volume)Ordered By: Pepe Au on 02-26-2025 Creatinine [Mass/Vol] 2.48 mg/dL High 0.70-1.20 [facility] Serum glucose measurement (m ass/volume)Ordered By: Pepe Au on 02-26-2025 Glucose [Mass/Vol] 136 mg/dL High 70-99 [facility] Serum or plasma albumin aubree urement (mass/volume)Ordered By: Pepe Au on 02-26-2025 Albumin [Mass/Vol] 3.7 g/dL 3.4-4.8 [facility] Serum or plasma calcium aubree urement (mass/volume)Ordered By: Pepe Au on 02-26-2025 Calcium [Mass/Vol] 9.0 mg/dL 7.6-11.0 [facility] Serum or plasma ferritin laurie surement (mass/volume)Ordered By: Pepe Au on 02-26-2025 Ferritin [Mass/Vol] 223 ng/mL 37-417 [facility] Serum or plasma iron saturat ion measurement (mass fraction)Ordered By: Pepe Au on 02-26-2025 Iron saturation [Mass fraction] 34.4 % 9-55 [facility] Comment on above: Previous reported re sult: 34.0 %Edited by: JUSTIN on 02/26/25:1611 AMENDED REPORT 02/26/25 1611 IRON SATURATION previously reported as: 34.0 % Serum or plasma urea nitroge n measurement (mass/volume)Ordered By: Pepe Au on 02-26-2025 Urea nitrogen [Mass/Vol] 45 mg/dL High 4-19 [facility] Serum phosphorus measurement Ordered By: Pepe Au on 02-26-2025 Phosphorus Level 3.2 mg/dL 2.7-4.5 [facility] Sodium levelOrdered By: Lety Au on 02-26-2025 Sodium [Moles/Vol] 143 mmol/L 133-145 [facility] White blood cell (WBC) count Ordered By: Pepe Au on 02-26-2025 WBC (Bld) [#/Vol] 8.2 10*3/uL 4.4-11.0 [facility] Absolute lymphocyte countOrd ered By: Pepe Au on 01-29-2025 Lymphocytes Auto (Unsp spec) [#/Vol] 1.70 10*3/uL 0.83-4.51 [facility] Absolute neutrophil countOrd ered By: Pepe Au on 01-29-2025 Neutrophils (Bld) [#/Vol] 8.4 10*3/uL High 2.0-7.7 [facility] Anion gap in Serum or Plasma Ordered By: Pepe Au on 01-29-2025 Anion gap [Moles/Vol] 14 mmol/L 5-15 [facility] [place] Automated lymphocyte count a s percentage of total leukocytesOrdered By: Peep Au on 01-29-2025 Lymphocytes/100 WBC Auto (Unsp spec) 15.5 % Low 19-41 [facility] BUN/creatinine ratioOrdered By: Pepe Au on 01-29-2025 Urea nitrogen/Creatinine [Mass ratio] 20.8 mg/mg High 10-20 [facility] Basophil percentageOrdered B y: Pepe Au on 01-29-2025 Basophils/100 WBC (Bld) 0.3 % 0-1 [facility] Calculated total iron bindin g capacityOrdered By: Pepe Au on 01-29-2025 Total Iron Binding Capacity 242 ug/dL Low 250-450 [facility] Carbon dioxide, total [Moles /volume] in Central venous bloodOrdered By: Pepe Au on 01-29-2025 CO2 [Moles/Vol] 21.4 mmol/L 21.0-32.0 [facility] Chloride assayOrdered By: Chaim Au on 01-29-2025 Chloride [Moles/Vol] 106 mmol/L 98-108 [facility] Eosinophil percentageOrdered By: Pepe Au on 01-29-2025 Eosinophils/100 WBC (Bld) 1.0 % 0-5 [facility] Erythrocyte distribution wid th (RBC) [Ratio]Ordered By: Pepe Au on 01-29-2025 Erythrocyte distribution width (RBC) [Entitic vol] 45.9 fL High 35.1-43.9 [facility] Erythrocyte distribution wid th ratioOrdered By: Pepe Au on 01-29-2025 Erythrocyte distribution width (RBC) [Ratio] 12.9 % 11.6-14.6 [facility] Erythrocyte distribution wid th standard deviationOrdered By: Pepe Au on 01-29-2025 Erythrocyte distribution width (RBC) [Ratio] 45.9 fl High 35.1-43.9 [facility] GFR/1.73 sq M.predicted henry g non-blacks MDRD (S/P/Bld) [Vol rate/Area]Ordered By: Pepe Au on 01-29-2025 Estimated GFR (MDRD) Non-Af Amer 24 Low >60 [facility] Comment on above: mL/min/1.73m2 CKD-EP I Creatinine Equation (2020) Glomerular filtration rate ( GFR) estimation/1.73 sq m using serum, plasma, or whole bOrdered By: Pepe Au on 01-29-2025 GFR/1.73 sq M.predicted among non-blacks MDRD (S/P/Bld) [Vol rate/Area] 24 mL/min/{1.73_m2} Low >60 [facility] Comment on above: mL/min/1.73m2 CKD-EP I Creatinine Equation (2020) Hematocrit Auto (Bld) [Volum e fraction]Ordered By: Pepe Au on 01-29-2025 Hematocrit (Bld) [Volume fraction] 37.9 % Low 40-54 [facility] Hemoglobin measurementOrdere d By: Pepe Au on 01-29-2025 Hemoglobin (Bld) [Mass/Vol] 12.3 g/dL Low 13.0-16.5 [facility] Immature granulocytes/100 WB C Auto (Bld)Ordered By: Pepe Au on 01-29-2025 Immature granulocytes/100 WBC (Bld) 0.400 % 0.0-0.9 [facility] Comment on above: IG% - Immature Granu locytes (promyelocytes, myelocytes and metamyelocytes) > 1% indicates that a LEFT SHIFT is Present. Iron (Unsp spec) [Mass/Mass] Ordered By: Pepe Au on 01-29-2025 Iron [Mass/Vol] 84 ug/dL 65-175 [facility] Iron measurement (mass/mass) Ordered By: Pepe Au on 01-29-2025 Iron (Unsp spec) [Mass/Mass] 84 ug/dL 65-175 [facility] Iron saturation [Mass fracti on]Ordered By: Pepe Au on 01-29-2025 Iron Saturation 35.0 % 15.0-55.0 [facility] Lymphocytes Auto (Unsp spec) [#/Vol]Ordered By: Pepe Au on 01-29-2025 Lymphocytes (Bld) [#/Vol] 1.70 10*3/uL 0.83-4.51 [facility] Lymphocytes/100 WBC Auto (Un sp spec)Ordered By: Pepe Au on 01-29-2025 Lymphocytes/100 WBC (Bld) 15.5 % Low 19-41 [facility] MCV (mean corpuscular volume ) determinationOrdered By: Pepe Au on 01-29-2025 MCV (RBC) [Entitic vol] 98.2 fL High 80-94 [facility] Mean corpuscular hemoglobin (MCH) determinationOrdered By: Pepe Au on 01-29-2025 MCH (RBC) [Entitic mass] 31.9 pg 27.0-32.0 [facility] Mean corpuscular hemoglobin concentration (MCHC) determinationOrdered By: Pepe Au on 01-29-2025 MCHC (RBC) [Mass/Vol] 32.5 g/dL 32-36 [facility] [place] Mean platelet volume determi nationOrdered By: Pepe Au on 01-29-2025 Platelet mean volume (Bld) [Entitic vol] 11.5 fL 6.2-12.0 [facility] Monocyte percentageOrdered B y: Pepe Au on 01-29-2025 Monocytes/100 WBC (Bld) 6.5 % 0-10 [facility] Neutrophil percentageOrdered By: Pepe Au on 01-29-2025 Neutrophils/100 WBC (Bld) 76.3 % High 47-70 [facility] No Panel InformationOrdered By: Pepe Au on 01-29-2025 Unsaturated Iron Binding Capacity 158 ug/dL Low 228-428 [facility] Nucleated red blood cell per centageOrdered By: Pepe Au on 01-29-2025 Nucleated RBC/100 WBC (Bld) [Ratio] 0 % 0-5 [facility] PTH intactOrdered By: Paula Au on 01-29-2025 Parathyroid Hormone (Intact) 30 pg/mL 11-61 [facility] Platelet countOrdered By: Chaim Au on 01-29-2025 Platelets (Bld) [#/Vol] 115 10*3/uL Low 150-450 [facility] Potassium (Unsp spec) [Mass/ Vol]Ordered By: Pepe Au on 01-29-2025 Potassium [Moles/Vol] 4.4 mmol/L 3.3-5.1 [facility] Potassium measurement (mass/ volume)Ordered By: Pepe Au on 01-29-2025 Potassium (Unsp spec) [Mass/Vol] 4.4 mmol/L 3.3-5.1 [facility] RBC Auto (Bld) [#/Vol]Ordere d By: Pepe Au on 01-29-2025 RBC (Bld) [#/Vol] 3.86 10*6/uL Low 4.6-6.2 [facility] Serum creatinine measurement (mass/volume)Ordered By: Pepe Au on 01-29-2025 Creatinine [Mass/Vol] 2.59 mg/dL High 0.70-1.20 [facility] Serum glucose measurement (m ass/volume)Ordered By: Pepe Au on 01-29-2025 Glucose [Mass/Vol] 110 mg/dL High 70-99 [facility] Serum or plasma albumin aubree urement (mass/volume)Ordered By: Pepe Au on 01-29-2025 Albumin [Mass/Vol] 4.0 g/dL 3.4-4.8 [facility] Serum or plasma calcium aubree urement (mass/volume)Ordered By: Pepe Au on 01-29-2025 Calcium [Mass/Vol] 9.8 mg/dL 7.6-11.0 [facility] Serum or plasma ferritin laurie surement (mass/volume)Ordered By: Pepe Au on 01-29-2025 Ferritin [Mass/Vol] 252 ng/mL 37-417 [facility] Serum or plasma iron saturat ion measurement (mass fraction)Ordered By: Pepe Au on 01-29-2025 Iron saturation [Mass fraction] 35.0 % 15.0-55.0 [facility] Serum or plasma urea nitroge n measurement (mass/volume)Ordered By: Pepe Au on 01-29-2025 Urea nitrogen [Mass/Vol] 54 mg/dL High 4-19 [facility] Serum phosphorus measurement Ordered By: Pepe Au on 01-29-2025 Phosphorus Level 3.1 mg/dL 2.7-4.5 [facility] Sodium levelOrdered By: Lety Au on 01-29-2025 Sodium [Moles/Vol] 141 mmol/L 133-145 [facility] White blood cell (WBC) count Ordered By: Pepe Au on 01-29-2025 WBC (Bld) [#/Vol] 11.0 10*3/uL 4.4-11.0 [facility] Absolute lymphocyte countOrd ered By: Pepe Au on 01-01-2025 Lymphocytes Auto (Unsp spec) [#/Vol] 1.90 10*3/uL 0.83-4.51 [facility] Absolute neutrophil countOrd ered By: Pepe Au on 01-01-2025 Neutrophils (Bld) [#/Vol] 5.0 10*3/uL 2.0-7.7 [facility] Automated lymphocyte count a s percentage of total leukocytesOrdered By: Pepe Au on 01-01-2025 Lymphocytes/100 WBC Auto (Unsp spec) 24.6 % 19-41 [facility] Basophil percentageOrdered B y: Pepe Au on 01-01-2025 Basophils/100 WBC (Bld) 0.5 % 0-1 [facility] Blood urea nitrogen (BUN)/cr eatinine ratioOrdered By: Pepe Au on 01-01-2025 Urea nitrogen/Creatinine [Mass ratio] 19.0 mg/mg 10-20 [facility] Carbon dioxide measurementOr dered By: Pepe Au on 01-01-2025 CO2 [Moles/Vol] 28.0 mmol/L 21.0-32.0 [facility] Chloride measurementOrdered By: Pepe Au on 01-01-2025 Chloride [Moles/Vol] 110 mmol/L High 98-107 [facility] Eosinophil percentageOrdered By: Pepe Au on 01-01-2025 Eosinophils/100 WBC (Bld) 2.3 % 0-5 [facility] Erythrocyte distribution wid th (RBC) [Ratio]Ordered By: Pepe Au on 01-01-2025 Erythrocyte distribution width (RBC) [Entitic vol] 49.0 fL High 35.1-43.9 [facility] Erythrocyte distribution wid th ratioOrdered By: Pepe Au on 01-01-2025 Erythrocyte distribution width (RBC) [Ratio] 13.2 % 11.6-14.6 [facility] Erythrocyte distribution wid th standard deviationOrdered By: Pepe Au on 01-01-2025 Erythrocyte distribution width (RBC) [Ratio] 49.0 fl High 35.1-43.9 [facility] Estimated glomerular filtrat ion rate (GFR) AmericanOrdered By: Pepe Au on 01-01-2025 Estimated GFR (MDRD) Amer 31 mL/min Low >60 [facility] Comment on above: GFR Calc Ferritin measurementOrdered By: Pepe Au on 01-01-2025 Ferritin [Mass/Vol] 152 ng/mL 26-388 [facility] Glomerular filtration rate ( GFR) estimationOrdered By: Pepe Au on 01-01-2025 Estimated GFR (MDRD) Non-Af Amer 25 mL/min Low >60 [facility] Comment on above: Non- GFR Calc GFR/1.73 sq M.predicted among non-blacks MDRD (S/P/Bld) [Vol rate/Area] 25 mL/min/{1.73_m2} Low >60 [facility] Comment on above: Non- GFR Calc Glucose measurementOrdered B y: Pepe Au on 01-01-2025 Glucose [Mass/Vol] 124 mg/dL High 74-106 [facility] Comment on above: Fasting Glucose resu lt from 100 to 125 mg/dL suggests IMPAIRED HOMEOSTASIS per A.D.A. criteria. Hematocrit Auto (Bld) [Volum e fraction]Ordered By: Pepe Au on 01-01-2025 Hematocrit (Bld) [Volume fraction] 35.8 % Low 40-54 [facility] Hemoglobin measurementOrdere d By: Pepe Au on 01-01-2025 Hemoglobin (Bld) [Mass/Vol] 11.5 g/dL Low 13.0-16.5 [facility] Immature granulocytes/100 WB C Auto (Bld)Ordered By: Pepe Au on 01-01-2025 Immature granulocytes/100 WBC (Bld) 0.400 % 0.0-0.9 [facility] Comment on above: IG% - Immature Granu locytes (promyelocytes, myelocytes and metamyelocytes) > 1% indicates that a LEFT SHIFT is Present. Iron (Unsp spec) [Mass/Mass] Ordered By: Pepe Au on 01-01-2025 Iron [Mass/Vol] 53 ug/dL Low 65-175 [facility] Iron measurement (mass/mass) Ordered By: Pepe Au on 01-01-2025 Iron (Unsp spec) [Mass/Mass] 53 ug/dL Low 65-175 [facility] Iron saturation [Mass fracti on]Ordered By: Pepe Au on 01-01-2025 Iron Saturation 25.1 % 15.0-55.0 [facility] Lymphocytes Auto (Unsp spec) [#/Vol]Ordered By: Pepe Au on 01-01-2025 Lymphocytes (Bld) [#/Vol] 1.90 10*3/uL 0.83-4.51 [facility] Lymphocytes/100 WBC Auto (Un sp spec)Ordered By: Pepe Au on 01-01-2025 Lymphocytes/100 WBC (Bld) 24.6 % 19-41 [facility] MCV (mean corpuscular volume ) determinationOrdered By: Pepe Au on 01-01-2025 MCV (RBC) [Entitic vol] 100.3 fL High 80-94 [facility] Mean corpuscular hemoglobin (MCH) determinationOrdered By: Pepe Au on 01-01-2025 MCH (RBC) [Entitic mass] 32.2 pg High 27.0-32.0 [facility] Mean corpuscular hemoglobin concentration (MCHC) determinationOrdered By: Pepe Au on 01-01-2025 MCHC (RBC) [Mass/Vol] 32.1 g/dL 32-36 [facility] Mean platelet volume determi nationOrdered By: Pepe Au on 01-01-2025 Platelet mean volume (Bld) [Entitic vol] 10.5 fL 6.2-12.0 [facility] Monocyte percentageOrdered B y: Pepe Au on 01-01-2025 Monocytes/100 WBC (Bld) 7.0 % 0-10 [facility] Neutrophil percentageOrdered By: Pepe Au on 01-01-2025 Neutrophils/100 WBC (Bld) 65.2 % 47-70 [facility] Nucleated red blood cell per centageOrdered By: Pepe Au on 01-01-2025 Nucleated RBC/100 WBC (Bld) [Ratio] 0 % 0-5 [facility] Phosphorus measurementOrdere d By: Pepe Au on 01-01-2025 Phosphorus Level 3.4 mg/dL 2.5-4.9 [facility] Platelet countOrdered By: Chaim Au on 01-01-2025 Platelets (Bld) [#/Vol] 105 10*3/uL Low 150-450 [facility] Potassium measurementOrdered By: Pepe Au on 01-01-2025 Potassium [Moles/Vol] 4.8 mmol/L 3.5-5.1 [facility] RBC Auto (Bld) [#/Vol]Ordere d By: Pepe Au on 01-01-2025 RBC (Bld) [#/Vol] 3.57 10*6/uL Low 4.6-6.2 [facility] Serum or plasma albumin aubree urement (mass/volume)Ordered By: Pepe Au on 01-01-2025 Albumin [Mass/Vol] 3.4 g/dL 3.2-5.0 [facility] Serum or plasma calcium aubree urement (mass/volume)Ordered By: Pepe Au on 01-01-2025 Calcium [Mass/Vol] 10.2 mg/dL High 8.5-10.1 [facility] Serum or plasma creatinine m easurement (mass/volume)Ordered By: Pepe Au on 01-01-2025 Creatinine [Mass/Vol] 2.58 mg/dL High 0.70-1.30 [facility] Comment on above: The validity of the calculated GFR & GFRAA in patients over 70 years has not been determined. Clinical correlation is essential. Serum or plasma iron saturat ion measurement (mass fraction)Ordered By: Pepe Au on 01-01-2025 Iron saturation [Mass fraction] 25.1 % 15.0-55.0 [facility] Serum or plasma urea nitroge n measurement (mass/volume)Ordered By: Pepe Au on 01-01-2025 Urea nitrogen [Mass/Vol] 49 mg/dL High 7-18 [facility] Sodium levelOrdered By: Lety Au on 01-01-2025 Sodium [Moles/Vol] 142 mmol/L 136-145 [facility] TIBCOrdered By: Pepe coley on 01-01-2025 Total Iron Binding Capacity 211 ug/dL Low 250-450 [facility] White blood cell (WBC) count Ordered By: Pepe Au on 01-01-2025 WBC (Bld) [#/Vol] 7.7 10*3/uL 4.4-11.0 [facility] Absolute neutrophil countOrd ered By: Pepe Au on 12-04-2024 Neutrophils (Bld) [#/Vol] 4.9 10*3/uL 2.0-7.7 [facility] Basophil percentageOrdered B y: Pepe Au on 12-04-2024 Basophils/100 WBC (Bld) 0.5 % 0-1 [facility] Blood urea nitrogen (BUN)/cr eatinine ratioOrdered By: Pepe Au on 12-04-2024 Urea nitrogen/Creatinine [Mass ratio] 18.9 mg/mg 10-20 [facility] Carbon dioxide measurementOr dered By: Pepe Au on 12-04-2024 CO2 [Moles/Vol] 24.0 mmol/L 21.0-32.0 [facility] Chloride measurementOrdered By: Pepe Au on 12-04-2024 Chloride [Moles/Vol] 116 mmol/L High 98-107 [facility] Eosinophil percentageOrdered By: Ppee Au on 12-04-2024 Eosinophils/100 WBC (Bld) 2.8 % 0-5 [facility] Erythrocyte distribution wid th (RBC) [Ratio]Ordered By: Pepe Au on 12-04-2024 Erythrocyte distribution width (RBC) [Entitic vol] 54.9 fL High 35.1-43.9 [facility] Erythrocyte distribution wid th ratioOrdered By: Pepe Au on 12-04-2024 Erythrocyte distribution width (RBC) [Ratio] 14.7 % High 11.6-14.6 [facility] Estimated glomerular filtrat ion rate (GFR) AmericanOrdered By: Pepe Au on 12-04-2024 Estimated GFR (MDRD) Amer 31 mL/min Low >60 [facility] Comment on above: GFR Calc Ferritin measurementOrdered By: Pepe Au on 12-04-2024 Ferritin [Mass/Vol] 140 ng/mL 26-388 [facility] Glomerular filtration rate ( GFR) estimationOrdered By: Pepe Au on 12-04-2024 Estimated GFR (MDRD) Non-Af Amer 26 mL/min Low >60 [facility] Comment on above: Non- GFR Calc Glucose measurementOrdered B y: Pepe Au on 12-04-2024 Glucose [Mass/Vol] 128 mg/dL High 74-106 [facility] Comment on above: Fasting Glucose resu lt greater than or equal to 126 mg/dL suggests DIABETES MELLITUS per A.D.A. criteria. Hematocrit Auto (Bld) [Volum e fraction]Ordered By: Pepe Au on 12-04-2024 Hematocrit (Bld) [Volume fraction] 36.7 % Low 40-54 [facility] Hemoglobin measurementOrdere d By: Pepe Au on 12-04-2024 Hemoglobin (Bld) [Mass/Vol] 11.6 g/dL Low 13.0-16.5 [facility] Immature granulocytes/100 WB C Auto (Bld)Ordered By: Pepe Au on 12-04-2024 Immature granulocytes/100 WBC (Bld) 0.400 % 0.0-0.9 [facility] Comment on above: IG% - Immature Granu locytes (promyelocytes, myelocytes and metamyelocytes) > 1% indicates that a LEFT SHIFT is Present. Iron (Unsp spec) [Mass/Mass] Ordered By: Pepe Au on 12-04-2024 Iron [Mass/Vol] 77 ug/dL 65-175 [facility] Iron saturation [Mass fracti on]Ordered By: Pepe Au on 12-04-2024 Iron Saturation 32.0 % 15.0-55.0 [facility] Lymphocytes Auto (Unsp spec) [#/Vol]Ordered By: Pepe Au on 12-04-2024 Lymphocytes (Bld) [#/Vol] 1.91 10*3/uL 0.83-4.51 [facility] Lymphocytes/100 WBC Auto (Un sp spec)Ordered By: Pepe Au on 12-04-2024 Lymphocytes/100 WBC (Bld) 25.4 % 19-41 [facility] MCV (mean corpuscular volume ) determinationOrdered By: Pepe Au on 12-04-2024 MCV (RBC) [Entitic vol] 101.7 fL High 80-94 [facility] Mean corpuscular hemoglobin (MCH) determinationOrdered By: Pepe Au on 12-04-2024 MCH (RBC) [Entitic mass] 32.1 pg High 27.0-32.0 [facility] Mean corpuscular hemoglobin concentration (MCHC) determinationOrdered By: Pepe Au on 12-04-2024 MCHC (RBC) [Mass/Vol] 31.6 g/dL Low 32-36 [facility] Mean platelet volume determi nationOrdered By: Pepe Au on 12-04-2024 Platelet mean volume (Bld) [Entitic vol] 10.7 fL 6.2-12.0 [facility] Monocyte percentageOrdered B y: Pepe Au on 12-04-2024 Monocytes/100 WBC (Bld) 6.4 % 0-10 [facility] Neutrophil percentageOrdered By: Pepe Au on 12-04-2024 Neutrophils/100 WBC (Bld) 64.5 % 47-70 [facility] Nucleated red blood cell per centageOrdered By: Pepe Au on 12-04-2024 Nucleated RBC/100 WBC (Bld) [Ratio] 0 % 0-5 [facility] Phosphorus measurementOrdere d By: Pepe Au on 12-04-2024 Phosphorus Level 3.2 mg/dL 2.5-4.9 [facility] Platelet countOrdered By: Chaim Au on 12-04-2024 Platelets (Bld) [#/Vol] 117 10*3/uL Low 150-450 [facility] Potassium measurementOrdered By: Pepe Au on 12-04-2024 Potassium [Moles/Vol] 5.0 mmol/L 3.5-5.1 [facility] RBC Auto (Bld) [#/Vol]Ordere d By: Pepe Au on 12-04-2024 RBC (Bld) [#/Vol] 3.61 10*6/uL Low 4.6-6.2 [facility] Serum or plasma albumin aubree urement (mass/volume)Ordered By: Pepe Au on 12-04-2024 Albumin [Mass/Vol] 3.5 g/dL 3.2-5.0 [facility] Serum or plasma calcium aubree urement (mass/volume)Ordered By: Pepe Au on 12-04-2024 Calcium [Mass/Vol] 9.6 mg/dL 8.5-10.1 [facility] Serum or plasma creatinine m easurement (mass/volume)Ordered By: Pepe Au on 12-04-2024 Creatinine [Mass/Vol] 2.54 mg/dL High 0.70-1.30 [facility] Comment on above: The validity of the calculated GFR & GFRAA in patients over 70 years has not been determined. Clinical correlation is essential. Serum or plasma urea nitroge n measurement (mass/volume)Ordered By: Pepe Au on 12-04-2024 Urea nitrogen [Mass/Vol] 48 mg/dL High 7-18 [facility] Sodium levelOrdered By: Lety Au on 12-04-2024 Sodium [Moles/Vol] 143 mmol/L 136-145 [facility] TIBCOrdered By: Pepe coley on 12-04-2024 Total Iron Binding Capacity 241 ug/dL Low 250-450 [facility] White blood cell (WBC) count Ordered By: Pepe Au on 12-04-2024 WBC (Bld) [#/Vol] 7.5 10*3/uL 4.4-11.0 [facility] Absolute neutrophil countOrd ered By: Pepe Au on 10-31-2024 Neutrophils (Bld) [#/Vol] 4.2 10*3/uL 2.0-7.7 [facility] Basophil percentageOrdered B y: Pepe Au on 10-31-2024 Basophils/100 WBC (Bld) 0.3 % 0-1 [facility] Blood urea nitrogen (BUN)/cr eatinine ratioOrdered By: Pepe Au on 10-31-2024 Urea nitrogen/Creatinine [Mass ratio] 27.8 mg/mg High 10-20 [facility] Carbon dioxide measurementOr dered By: Pepe Au on 10-31-2024 CO2 [Moles/Vol] 24.0 mmol/L 21.0-32.0 [facility] Chloride measurementOrdered By: Pepe Au on 10-31-2024 Chloride [Moles/Vol] 113 mmol/L High 98-107 [facility] Eosinophil percentageOrdered By: Pepe Au on 10-31-2024 Eosinophils/100 WBC (Bld) 4.2 % 0-5 [facility] Erythrocyte distribution wid th (RBC) [Ratio]Ordered By: Pepe Au on 10-31-2024 Erythrocyte distribution width (RBC) [Entitic vol] 51.4 fL High 35.1-43.9 [facility] Erythrocyte distribution wid th ratioOrdered By: Pepe Au on 10-31-2024 Erythrocyte distribution width (RBC) [Ratio] 14.3 % 11.6-14.6 [facility] Estimated glomerular filtrat ion rate (GFR) AmericanOrdered By: Pepe Au on 10-31-2024 Estimated GFR (MDRD) Amer 32 mL/min Low >60 [facility] Comment on above: GFR Calc Ferritin measurementOrdered By: Pepe Au on 10-31-2024 Ferritin [Mass/Vol] 176 ng/mL 26-388 [facility] Glomerular filtration rate ( GFR) estimationOrdered By: Pepe Au on 10-31-2024 Estimated GFR (MDRD) Non-Af Amer 26 mL/min Low >60 [facility] Comment on above: Non- GFR Calc Glucose measurementOrdered B y: Pepe Au on 10-31-2024 Glucose [Mass/Vol] 145 mg/dL High 74-106 [facility] Comment on above: Fasting Glucose resu lt greater than or equal to 126 mg/dL suggests DIABETES MELLITUS per A.D.A. criteria. Hematocrit Auto (Bld) [Volum e fraction]Ordered By: Pepe Au on 10-31-2024 Hematocrit (Bld) [Volume fraction] 33.6 % Low 40-54 [facility] Hemoglobin measurementOrdere d By: Pepe Au on 10-31-2024 Hemoglobin (Bld) [Mass/Vol] 10.9 g/dL Low 13.0-16.5 [facility] Immature granulocytes/100 WB C Auto (Bld)Ordered By: Pepe Au on 10-31-2024 Immature granulocytes/100 WBC (Bld) 0.600 % 0.0-0.9 [facility] Comment on above: IG% - Immature Granu locytes (promyelocytes, myelocytes and metamyelocytes) > 1% indicates that a LEFT SHIFT is Present. Intact parathyroid hormone ( iPTH) measurementOrdered By: Pepe Au on 10-31-2024 Parathyroid Hormone (Intact) 16.0 pg/mL Low 18.4-80.1 [facility] Iron (Unsp spec) [Mass/Mass] Ordered By: Pepe Au on 10-31-2024 Iron [Mass/Vol] 63 ug/dL Low 65-175 [facility] Iron saturation [Mass fracti on]Ordered By: Pepe Au on 10-31-2024 Iron Saturation 26.7 % 15.0-55.0 [facility] Lymphocytes Auto (Unsp spec) [#/Vol]Ordered By: Pepe Au on 10-31-2024 Lymphocytes (Bld) [#/Vol] 1.70 10*3/uL 0.83-4.51 [facility] Lymphocytes/100 WBC Auto (Un sp spec)Ordered By: Pepe Au on 10-31-2024 Lymphocytes/100 WBC (Bld) 25.4 % 19-41 [facility] MCV (mean corpuscular volume ) determinationOrdered By: Pepe Au on 10-31-2024 MCV (RBC) [Entitic vol] 99.4 fL High 80-94 [facility] Mean corpuscular hemoglobin (MCH) determinationOrdered By: Pepe Au on 10-31-2024 MCH (RBC) [Entitic mass] 32.2 pg High 27.0-32.0 [facility] Mean corpuscular hemoglobin concentration (MCHC) determinationOrdered By: ePpe Au on 10-31-2024 MCHC (RBC) [Mass/Vol] 32.4 g/dL 32-36 [facility] Mean platelet volume determi nationOrdered By: Pepe Au on 10-31-2024 Platelet mean volume (Bld) [Entitic vol] 10.8 fL 6.2-12.0 [facility] Monocyte percentageOrdered B y: Pepe Au on 10-31-2024 Monocytes/100 WBC (Bld) 6.4 % 0-10 [facility] Neutrophil percentageOrdered By: Pepe Au on 10-31-2024 Neutrophils/100 WBC (Bld) 63.1 % 47-70 [facility] Nucleated red blood cell per centageOrdered By: Pepe Au on 10-31-2024 Nucleated RBC/100 WBC (Bld) [Ratio] 0 % 0-5 [facility] Phosphorus measurementOrdere d By: Pepe Au on 10-31-2024 Phosphorus Level 3.5 mg/dL 2.5-4.9 [facility] Platelet countOrdered By: Chaim Au on 10-31-2024 Platelets (Bld) [#/Vol] 133 10*3/uL Low 150-450 [facility] Potassium measurementOrdered By: Pepe Au on 10-31-2024 Potassium [Moles/Vol] 4.4 mmol/L 3.5-5.1 [facility] RBC Auto (Bld) [#/Vol]Ordere d By: Pepe Au on 10-31-2024 RBC (Bld) [#/Vol] 3.38 10*6/uL Low 4.6-6.2 [facility] Serum or plasma albumin aubree urement (mass/volume)Ordered By: Pepe Au on 10-31-2024 Albumin [Mass/Vol] 3.4 g/dL 3.2-5.0 [facility] Serum or plasma calcium aubree urement (mass/volume)Ordered By: Pepe Au on 10-31-2024 Calcium [Mass/Vol] 9.7 mg/dL 8.5-10.1 [facility] Serum or plasma creatinine m easurement (mass/volume)Ordered By: Pepe Au on 10-31-2024 Creatinine [Mass/Vol] 2.52 mg/dL High 0.70-1.30 [facility] Comment on above: The validity of the calculated GFR & GFRAA in patients over 70 years has not been determined. Clinical correlation is essential. Serum or plasma urea nitroge n measurement (mass/volume)Ordered By: Pepe Au on 10-31-2024 Urea nitrogen [Mass/Vol] 70 mg/dL High 7-18 [facility] Sodium levelOrdered By: Lety Au on 10-31-2024 Sodium [Moles/Vol] 143 mmol/L 136-145 [facility] TIBCOrdered By: Pepe coley on 10-31-2024 Total Iron Binding Capacity 236 ug/dL Low 250-450 [facility] White blood cell (WBC) count Ordered By: Pepe Au on 10-31-2024 WBC (Bld) [#/Vol] 6.7 10*3/uL 4.4-11.0 [facility] Basophil percentageOrdered B y: Rios Downey on 03-22-2024 Bilirubin [Mass/Vol] 0.60 mg/dL 0.20-1.00 [facility] Comment on above: For patients on eltr ombopag therapy, use of Dimension [place] TBIL is not recommended. Chloride [Moles/Vol] 113 mmol/L 98-107 [facility] Cholesterol [Mass/Vol] 191 mg/dL <[address] [facility] Comment on above: <200 mg/dL Desirable 200-240 mg/dL Borderline >240 mg/dL High Risk Glucose [Mass/Vol] 133 mg/dL 74-106 [facility] Comment on above: Fasting Glucose resu lt greater than or equal to 126 mg/dL suggests DIABETES MELLITUS per A.D.A. criteria. Hemoglobin (Bld) [Mass/Vol] 11.4 g/dL 13.0-16.5 [facility] Potassium [Moles/Vol] 4.7 mmol/L 3.5-5.1 [facility] Protein [Mass/Vol] 7.4 g/dL 6.4-8.2 [facility] Sodium [Moles/Vol] 143 mmol/L 136-145 [facility] Triglyceride [Mass/Vol] 132 mg/dL <199 [facility] Comment on above: The drugs N-Acetylcy steine and Metamizole may falsely depress this assay.Serum Triglycerides Reference Interval Normal <150 mg/dL Borderline high 150 - 199 mg/dL High 200 - 499 mg/dL Very High > or = 500 mg/dL WBC (Bld) [#/Vol] 8.3 10*3/uL 4.4-11.0 [facility] Cholesterol in LDL Direct as say [Mass/Vol]Ordered By: Rios Downey on 03-22-2024 Cholesterol in LDL [Mass/Vol] 140 mg/dL 0-99 [facility] Determination of erythrocyte mean corpuscular volume (MCV)Ordered By: Rios Downey on 03-22-2024 MCV (RBC) [Entitic vol] 96.2 fL 80-94 [facility] Erythrocyte distribution wid th ratioOrdered By: Rios Downey on 03-22-2024 Erythrocyte distribution width (RBC) [Ratio] 15.1 % 11.6-14.6 [facility] Erythrocyte distribution wid th standard deviationOrdered By: Rios Downey on 03-22-2024 Erythrocyte distribution width (RBC) [Entitic vol] 52.4 fL 35.1-43.9 [facility] Hematocrit Auto (Bld) [Volum e fraction]Ordered By: Rios Downey on 03-22-2024 Hematocrit (Bld) [Volume fraction] 35.8 % 40-54 [facility] Laboratory - Chemistry and C hemistry - challengeOrdered By: Rios Downey on 03-22-2024 Albumin/Globulin [Mass ratio] 0.8 {ratio} 0.9-2.4 [facility] ALP [Catalytic activity/Vol] 141 U/L 45-117 [facility] ALT [Catalytic activity/Vol] 14 U/L 16-61 [facility] Cholesterol in HDL [Mass/Vol] 33 mg/dL >40 [facility] Comment on above: The drugs N-Acetylcy steine and Metamizole may falsely depress this assay. Reference Range HDL <40 mg/dL Low HDL Cholesterol HDL >or= 60 mg/dL High HDL Cholesterol Cholesterol in LDL [Mass/Vol] 132 mg/dL 0-130 [facility] CO2 [Moles/Vol] 24.0 mmol/L 21.0-32.0 [facility] Cobalamin (Vitamin B12) [Mass/Vol] 470 pg/mL 211-911 [facility] Globulin (S) [Mass/Vol] 4.1 g/dL 2.2-4.2 [facility] Magnesium [Mass/Vol] 1.8 mg/dL 1.6-2.6 [facility] Urea nitrogen/Creatinine [Mass ratio] 18.2 mg/mg 10-20 [facility] Laboratory - Hematology and Cell countsOrdered By: Rios Downey on 03-22-2024 MCH (RBC) [Entitic mass] 30.6 pg 27.0-32.0 [facility] MCHC (RBC) [Mass/Vol] 31.8 g/dL 32-36 [facility] Platelet mean volume (Bld) [Entitic vol] 10.5 fL 6.2-12.0 [facility] Platelets (Bld) [#/Vol] 138 10*3/uL 150-450 [facility] Laboratory - Miscellaneous t estsOrdered By: Rios Downey on 03-22-2024 Service comment (Unsp spec) [Interp] TNP [facility] Comment on above: Test not performed No Panel InformationOrdered By: Rios Downey on 03-22-2024 Anti-Nuclear Antibody Screen Negative Negative [facility] Comment on above: Performed at: [address] [id number] Director: Nabeel Ruff PhD, Phone: [phone] Estimated GFR (MDRD) Amer 37 mL/min >60 [facility] Comment on above: GFR Calc Estimated GFR (MDRD) Non-Af Amer 31 mL/min >60 [facility] Comment on above: Non- GFR Calc Folate 26.90 ng/mL 3.1-55.4 [facility] Levetiracetam (Keppra) Level 55.2 ug/mL 10.0-40.0 [facility] Comment on above: Performed at: [facility] [address] [id number] Director: Nabeel Ruff PhD, Phone: [phone] at: [facility] [id number] Director: Suzy Adames MD, Phone: [phone] Vitamin D 25-Hydroxy 46.6 ng/mL [facility] Comment on above: Vitamin D 25(OH) Sta tus Range Deficiency <20 ng/mL (50nmol/L) Insufficiency 20 - 30 ng/mL (50 - 75 nmol/L) Sufficiency 30 - 100 ng/mL (75 - 250 nmol/L) Toxicity >100 ng/mL (>250 nmol/L) VLDL Cholesterol 26 mg/dL 5-40 [facility] RBC Auto (Bld) [#/Vol]Ordere d By: Rios Downey on 03-22-2024 RBC (Bld) [#/Vol] 3.72 10*6/uL 4.6-6.2 [facility] Serum or plasma calcium aubree urement (mass/volume)Ordered By: Rios Downey on 03-22-2024 Calcium [Mass/Vol] 9.1 mg/dL 8.5-10.1 [facility] Serum or plasma creatinine m easurement (mass/volume)Ordered By: Rios Downey on 03-22-2024 Creatinine [Mass/Vol] 2.20 mg/dL 0.70-1.30 [facility] Comment on above: The validity of the calculated GFR & GFRAA in patients over 70 years has not been determined. Clinical correlation is essential. Serum or plasma thyroid stim ulating hormone (TSH) measurement (units/volume)Ordered By: Rios Downey on 03-22-2024 TSH Qn 6.21 uIU/mL 0.358-3.74 [facility] Serum or plasma transthyreti n measurement (mass/volume)Ordered By: Rios Downey on 03-22-2024 Prealbumin [Mass/Vol] 19.8 mg/dL 20.0-40.0 [facility] Serum or plasma urea nitroge n measurement (mass/volume)Ordered By: Rios Downey on 03-22-2024 Urea nitrogen [Mass/Vol] 40 mg/dL 7-18 [facility] Serum or plasma uric acid me asurement (mass/volume)Ordered By: Rios Downey on 03-22-2024 Urate [Mass/Vol] 5.5 mg/dL 3.5-7.2 [facility] Comment on above: The drugs N-Acetylcy steine and Metamizole may falsely depress this assay. Thin prep Papanicolaou smear with manual screeningOrdered By: Rios Downey on 03-22-2024 Thin prep Papanicolaou smear with manual screening 3.3 g/dL 3.2-5.0 [facility] Thin prep Papanicolaou smear with manual screening 17 U/L 15-37 [facility] Thin prep Papanicolaou smear with manual screening 6 5-15 [facility] Thin prep Papanicolaou smear with manual screening 0.59 ng/dL 0.76-1.46 [facility] Whole blood hemoglobin A1c/t otal hemoglobin ratio (mass fraction)Ordered By: Rios Downey on 03-22-2024 HbA1c (Bld) [Mass fraction] 5.2 % 3.8-5.6 [facility] Comment on above: Normal < 5.7 % Predi abetic 5.7 - 6.4 % Diabetic >or= 6.5 % Please note range changes. Absolute lymphocyte countOrd ered By: Pepe Au on 03-14-2024 Lymphocytes Auto (Unsp spec) [#/Vol] 1.98 10*3/uL 0.83-4.51 [facility] Automated lymphocyte count a s percentage of total leukocytesOrdered By: Pepe Au on 03-14-2024 Lymphocytes/100 WBC Auto (Unsp spec) 25.4 % 19-41 [facility] Basophil percentageOrdered B y: Zandratrinity healthsteve Alexronaldo on 03-14-2024 Basophil percentage 2.4 mg/dL 2.5-4.9 [facility] Basophils/100 WBC (Bld) 0.6 % 0-1 [facility] Chloride [Moles/Vol] 112 mmol/L 98-107 [facility] Eosinophils/100 WBC (Bld) 3.9 % 0-5 [facility] Glucose [Mass/Vol] 120 mg/dL 74-106 [facility] Comment on above: Fasting Glucose resu lt from 100 to 125 mg/dL suggests IMPAIRED HOMEOSTASIS per A.D.A. criteria. Hemoglobin (Bld) [Mass/Vol] 11.2 g/dL 13.0-16.5 [facility] Monocytes/100 WBC (Bld) 6.9 % 0-10 [facility] Neutrophils (Bld) [#/Vol] 4.9 10*3/uL 2.0-7.7 [facility] Neutrophils/100 WBC (Bld) 62.9 % 47-70 [facility] Potassium [Moles/Vol] 4.3 mmol/L 3.5-5.1 [facility] Sodium [Moles/Vol] 140 mmol/L 136-145 [facility] WBC (Bld) [#/Vol] 7.8 10*3/uL 4.4-11.0 [facility] Determination of erythrocyte mean corpuscular volume (MCV)Ordered By: Pepe Au on 03-14-2024 MCV (RBC) [Entitic vol] 95.9 fL 80-94 [facility] Erythrocyte distribution wid th ratioOrdered By: [facility] Angely on 03-14-2024 Erythrocyte distribution width (RBC) [Ratio] 14.7 % 11.6-14.6 [facility] Erythrocyte distribution wid th standard deviationOrdered By: [facility] Angely on 03-14-2024 Erythrocyte distribution width (RBC) [Entitic vol] 51.0 fL 35.1-43.9 [facility] Hematocrit Auto (Bld) [Volum e fraction]Ordered By: Zandratrinity healthsteve Au on 03-14-2024 Hematocrit (Bld) [Volume fraction] 34.7 % 40-54 [facility] Immature granulocytes/100 WB C Auto (Bld)Ordered By: Pepe Au on 03-14-2024 Immature granulocytes/100 WBC (Bld) 0.300 % 0.0-0.9 [facility] Comment on above: IG% - Immature Granu locytes (promyelocytes, myelocytes and metamyelocytes) > 1% indicates that a LEFT SHIFT is Present. Iron measurement (mass/mass) Ordered By: Pepe Au on 03-14-2024 Iron (Unsp spec) [Mass/Mass] 66 ug/dL 65-175 [facility] Laboratory - Chemistry and C hemistry - challengeOrdered By: Pepe Au on 03-14-2024 CO2 [Moles/Vol] 27.0 mmol/L 21.0-32.0 [facility] Ferritin [Mass/Vol] 122 ng/mL 26-388 [facility] Urea nitrogen/Creatinine [Mass ratio] 22.7 mg/mg 10-20 [facility] Laboratory - Hematology and Cell countsOrdered By: Pepe Au on 03-14-2024 MCH (RBC) [Entitic mass] 30.9 pg 27.0-32.0 [facility] MCHC (RBC) [Mass/Vol] 32.3 g/dL 32-36 [facility] Nucleated RBC/100 WBC (Bld) [Ratio] 0 % 0-5 [facility] Platelet mean volume (Bld) [Entitic vol] 10.3 fL 6.2-12.0 [facility] Platelets (Bld) [#/Vol] 132 10*3/uL 150-450 [facility] No Panel InformationOrdered By: Pepe Au on 03-14-2024 Estimated GFR (MDRD) Amer 41 mL/min >60 [facility] Comment on above: GFR Calc Estimated GFR (MDRD) Non-Af Amer 34 mL/min >60 [facility] Comment on above: Non- GFR Calc Total Iron Binding Capacity 197 ug/dL 250-450 [facility] RBC Auto (Bld) [#/Vol]Ordere d By: Pepe Au on 03-14-2024 RBC (Bld) [#/Vol] 3.62 10*6/uL 4.6-6.2 [facility] Serum or plasma calcium aubree urement (mass/volume)Ordered By: Pepe Au on 03-14-2024 Calcium [Mass/Vol] 8.7 mg/dL 8.5-10.1 [facility] Serum or plasma creatinine m easurement (mass/volume)Ordered By: Pepe Au on 03-14-2024 Creatinine [Mass/Vol] 2.03 mg/dL 0.70-1.30 [facility] Comment on above: The validity of the calculated GFR & GFRAA in patients over 70 years has not been determined. Clinical correlation is essential. Serum or plasma iron saturat ion measurement (mass fraction)Ordered By: Zandratrinity healthsteve Au on 03-14-2024 Iron saturation [Mass fraction] 33.5 % 15.0-55.0 [facility] Serum or plasma urea nitroge n measurement (mass/volume)Ordered By: Zandratrinity healthsteve Au on 03-14-2024 Urea nitrogen [Mass/Vol] 46 mg/dL 7-18 [facility] Thin prep Papanicolaou smear with manual screeningOrdered By: Pepe Au on 03-14-2024 Thin prep Papanicolaou smear with manual screening 3.2 g/dL 3.2-5.0 [facility] Absolute lymphocyte countOrd ered By: Cesar Medina on 02-19-2024 Lymphocytes Auto (Unsp spec) [#/Vol] 1.41 10*3/uL 0.83-4.51 [facility] Automated lymphocyte count a s percentage of total leukocytesOrdered By: Cesar Medina on 02-19-2024 Lymphocytes/100 WBC Auto (Unsp spec) 23.0 % 19-41 [facility] Basophil percentageOrdered B y: Cesar Medina on 02-19-2024 Basophil percentage 0 SEEN /hpf 0-5 [facility] Ammonia (P) [Moles/Vol] 20.0 umol/L 11-32 [facility] Basophils/100 WBC (Bld) 0.3 % 0-1 [facility] Bilirubin [Mass/Vol] 0.40 mg/dL 0.20-1.00 [facility] Comment on above: For patients on eltr ombopag therapy, use of Dimension [place] TBIL is not recommended. Chloride [Moles/Vol] 117 mmol/L 98-107 [facility] Eosinophils/100 WBC (Bld) 4.2 % 0-5 [facility] Glucose [Mass/Vol] 101 mg/dL 74-106 [facility] Comment on above: Fasting Glucose resu lt from 100 to 125 mg/dL suggests IMPAIRED HOMEOSTASIS per A.D.A. criteria. Hemoglobin (Bld) [Mass/Vol] 11.9 g/dL 13.0-16.5 [facility] Monocytes/100 WBC (Bld) 5.9 % 0-10 [facility] Neutrophils (Bld) [#/Vol] 4.1 10*3/uL 2.0-7.7 [facility] Neutrophils/100 WBC (Bld) 66.4 % 47-70 [facility] Potassium [Moles/Vol] 4.0 mmol/L 3.5-5.1 [facility] Protein [Mass/Vol] 7.5 g/dL 6.4-8.2 [facility] Sodium [Moles/Vol] 142 mmol/L 136-145 [facility] WBC (Bld) [#/Vol] 6.1 10*3/uL 4.4-11.0 [facility] Bilirubin Test strip Ql (U)O rdered By: Cesar Medina on 02-19-2024 Bilirubin Ql (U) Negative Negative [facility] Determination of erythrocyte mean corpuscular volume (MCV)Ordered By: Cesar Medina on 02-19-2024 MCV (RBC) [Entitic vol] 93.7 fL 80-94 [facility] Erythrocyte distribution wid th ratioOrdered By: Cesar Medina on 02-19-2024 Erythrocyte distribution width (RBC) [Ratio] 14.4 % 11.6-14.6 [facility] Erythrocyte distribution wid th standard deviationOrdered By: Cesar Medina on 02-19-2024 Erythrocyte distribution width (RBC) [Entitic vol] 48.8 fL 35.1-43.9 [facility] Hematocrit Auto (Bld) [Volum e fraction]Ordered By: Cesar Medina on 02-19-2024 Hematocrit (Bld) [Volume fraction] 35.9 % 40-54 [facility] Immature granulocytes/100 WB C Auto (Bld)Ordered By: Cesar Medina on 02-19-2024 Immature granulocytes/100 WBC (Bld) 0.200 % 0.0-0.9 [facility] Comment on above: IG% - Immature Granu locytes (promyelocytes, myelocytes and metamyelocytes) > 1% indicates that a LEFT SHIFT is Present. Ketones Test strip Ql (U)Ord ered By: Cesar Medina on 02-19-2024 Ketones Ql (U) Negative Negative [facility] Laboratory - Chemistry and C hemistry - challengeOrdered By: Cesar Medina on 02-19-2024 Albumin/Globulin [Mass ratio] 0.7 {ratio} 0.9-2.4 [facility] ALP [Catalytic activity/Vol] 167 U/L 45-117 [facility] ALT [Catalytic activity/Vol] 15 U/L 16-61 [facility] CO2 [Moles/Vol] 17.0 mmol/L 21.0-32.0 [facility] Globulin (S) [Mass/Vol] 4.5 g/dL 2.2-4.2 [facility] Lipase [Catalytic activity/Vol] 22 U/L 13-75 [facility] Comment on above: Please note:LIPASE r evised reference range effective 23. New Lipase methodology. Expected to produce lower values than the previous assay method. NEW Reference Range: 13 - 75 U/L Natriuretic peptide B (Bld) [Mass/Vol] 271.7 pg/mL 0-100 [facility] Urea nitrogen/Creatinine [Mass ratio] 19.6 mg/mg 10-20 [facility] Laboratory - Hematology and Cell countsOrdered By: Cesar Medina on 02-19-2024 MCH (RBC) [Entitic mass] 31.1 pg 27.0-32.0 [facility] MCHC (RBC) [Mass/Vol] 33.1 g/dL 32-36 [facility] Nucleated RBC/100 WBC (Bld) [Ratio] 0 % 0-5 [facility] Platelet mean volume (Bld) [Entitic vol] 10.6 fL 6.2-12.0 [facility] Platelets (Bld) [#/Vol] 137 10*3/uL 150-450 [facility] Laboratory - Microbiology an d Antimicrobial susceptibilityOrdered By: Cesar Medina on 02-19-2024 SARS-CoV-2 (COVID-19) RNA ELIANE+probe Ql (Unsp spec) [facility] Mucus LM Ql (Urine sed)Order ed By: Cesar Medina on 02-19-2024 Mucus Ql (Urine sed) 0 SEEN /hpf [facility] Nitrite Test strip Ql (U)Ord ered By: Cesar Medina on 02-19-2024 Nitrite Ql (U) Negative Negative [facility] No Panel InformationOrdered By: Cesar Medina on 02-19-2024 Urine RBC 0 SEEN /hpf 0-5 [facility] Estimated Creatinine Clearance Calc 25.73 ml/min [facility] Estimated GFR (MDRD) Amer 32 mL/min >60 [facility] Comment on above: GFR Calc Estimated GFR (MDRD) Non-Af Amer 26 mL/min >60 [facility] Comment on above: Non- GFR Calc Troponin I High Sensitivity 63 pg/mL 3.0-78.0 [facility] Comment on above: Please Note: New Meghana t Units and Gender Specific Reference Ranges. For more information see Policy Stat Procedure [place] High Sensitivity Troponin (TNIH) and attachments. Protein Test strip Ql (U)Ord ered By: Cesar Medina on 02-19-2024 Protein Ql (U) 30 mg/dl Negative [facility] RBC Auto (Bld) [#/Vol]Ordere d By: Cesar Medina on 02-19-2024 RBC (Bld) [#/Vol] 3.83 10*6/uL 4.6-6.2 [facility] Serum or plasma calcium aubree urement (mass/volume)Ordered By: Cesar Medina on 02-19-2024 Calcium [Mass/Vol] 8.7 mg/dL 8.5-10.1 [facility] Serum or plasma creatinine m easurement (mass/volume)Ordered By: Cesar Medina on 02-19-2024 Creatinine [Mass/Vol] 2.50 mg/dL 0.70-1.30 [facility] Comment on above: The validity of the calculated GFR & GFRAA in patients over 70 years has not been determined. Clinical correlation is essential. Serum or plasma urea nitroge n measurement (mass/volume)Ordered By: Cesar Medina on 02-19-2024 Urea nitrogen [Mass/Vol] 49 mg/dL 7-18 [facility] Squamous epithelial cells de tection in urine sediment by light microscopyOrdered By: Cesar Medina on 02-19-2024 Epithelial cells.squamous LM Ql (Urine sed) 0 SEEN /hpf 0-5 [facility] Thin prep Papanicolaou smear with manual screeningOrdered By: Cesar Medina on 02-19-2024 Thin prep Papanicolaou smear with manual screening 3.0 g/dL 3.2-5.0 [facility] Thin prep Papanicolaou smear with manual screening 20 U/L 15-37 [facility] Thin prep Papanicolaou smear with manual screening 8 5-15 [facility] Urine blood detectionOrdered By: Cesar Medina on 02-19-2024 RBC Ql (U) 10 /ul Negative [facility] Urine clarityOrdered By: Jodie Medina on 02-19-2024 Clarity (U) Clear Clear [facility] Urine color determinationOrd ered By: Cesar Medina on 02-19-2024 Color (U) Yellow Yellow [facility] Urine glucose detectionOrder ed By: Cesar Medina on 02-19-2024 Glucose Ql (U) Normal mg/dl Normal [facility] Urine leukocyte esterase det ection by dipstickOrdered By: Cesar Medina on 02-19-2024 Leukocyte esterase Test strip Ql (U) Negative Negative [facility] Urine pHOrdered By: Cesar deras on 02-19-2024 pH (U) 6.0 [pH] 5.0 - 8.0 [facility] Urine sediment bacteria coun t by microscopy (number/high power field)Ordered By: Cesar Medina on 02-19-2024 Bacteria LM.HPF (Urine sed) [#/Area] 0 /[HPF] None Seen [facility] Urine specific gravity measu rementOrdered By: Cesar Medina on 02-19-2024 Specific gravity (U) [Rel density] 1.015 1.002-1.030 [facility] Urine urobilinogen measureme ntOrdered By: Cesar Medina on 02-19-2024 Urobilinogen Ql (U) Normal mg/dl Normal [facility] Basophil percentageOrdered B y: Angélica Palomo on 02-16-2024 Basophil percentage 0 SEEN /hpf 0-5 [facility] Bilirubin Test strip Ql (U)O rdered By: Angélica Palomo on 02-16-2024 Bilirubin Ql (U) Negative Negative [facility] Hyaline casts LM.LPF (Urine sed) [#/Area]Ordered By: Angélica Palomo on 02-16-2024 Hyaline casts (Urine sed) [#/Area] 0 /[LPF] 0-5 [facility] Ketones Test strip Ql (U)Ord ered By: Angélica Palomo on 02-16-2024 Ketones Ql (U) Negative Negative [facility] Mucus LM Ql (Urine sed)Order ed By: Angélica Palomo on 02-16-2024 Mucus Ql (Urine sed) 0 SEEN /hpf [facility] Nitrite Test strip Ql (U)Ord ered By: Angélica Palomo on 02-16-2024 Nitrite Ql (U) Negative Negative [facility] No Panel InformationOrdered By: Angélica Palomo on 02-16-2024 Urine RBC 0 SEEN /hpf 0-5 [facility] Protein Test strip Ql (U)Ord ered By: Angélica Palomo on 02-16-2024 Protein Ql (U) 100 mg/dl Negative [facility] Squamous epithelial cells de tection in urine sediment by light microscopyOrdered By: Angélica Palomo on 02-16-2024 Epithelial cells.squamous LM Ql (Urine sed) 0-5 SEEN /hpf 0-5 [facility] Urine blood detectionOrdered By: Angélica Palomo on 02-16-2024 RBC Ql (U) 10 /ul Negative [facility] Urine clarityOrdered By: Dee Palomo on 02-16-2024 Clarity (U) Clear Clear [facility] Urine coarse granular cast d etectionOrdered By: Angélica Palomo on 02-16-2024 Coarse Granular Casts LM Ql (Urine sed) 0-5 SEEN /lpf 0-5 /lpf [facility] Urine color determinationOrd ered By: Angélica Palomo on 02-16-2024 Color (U) Yellow Yellow [facility] Urine glucose detectionOrder ed By: Angélica Palomo on 02-16-2024 Glucose Ql (U) Normal mg/dl Normal [facility] Urine leukocyte esterase det ection by dipstickOrdered By: Angélica Palomo on 02-16-2024 Leukocyte esterase Test strip Ql (U) Negative Negative [facility] Urine pHOrdered By: Angélica sher on 02-16-2024 pH (U) 6.0 [pH] 5.0 - 8.0 [facility] Urine sediment bacteria coun t by microscopy (number/high power field)Ordered By: Angélica Palomo on 02-16-2024 Bacteria LM.HPF (Urine sed) [#/Area] RARE /hpf None Seen [facility] Urine specific gravity measu rementOrdered By: Angélica Palomo on 02-16-2024 Specific gravity (U) [Rel density] 1.020 1.002-1.030 [facility] Urine urobilinogen measureme ntOrdered By: Angélica Palomo on 02-16-2024 Urobilinogen Ql (U) Normal mg/dl Normal [facility] Absolute lymphocyte countOrd ered By: Angélica Palomo on 02-15-2024 Lymphocytes Auto (Unsp spec) [#/Vol] 1.62 10*3/uL 0.83-4.51 [facility] Absolute lymphocyte countOrd ered By: Pepe Au on 02-15-2024 Lymphocytes Auto (Unsp spec) [#/Vol] 1.93 10*3/uL 0.83-4.51 [facility] Automated lymphocyte count a s percentage of total leukocytesOrdered By: Angélica Palomo on 02-15-2024 Lymphocytes/100 WBC Auto (Unsp spec) 21.2 % [facility] Automated lymphocyte count a s percentage of total leukocytesOrdered By: Pepe Au on 02-15-2024 Lymphocytes/100 WBC Auto (Unsp spec) 21.1 % [facility] Basophil percentageOrdered B y: Pepe Au on 02-15-2024 Basophils/100 WBC (Bld) 0.3 % 0-1 [facility] Hemoglobin (Bld) [Mass/Vol] 12.9 g/dL 13.0-16.5 [facility] Basophil percentage 3.1 mg/dL 2.5-4.9 [facility] Chloride [Moles/Vol] 115 mmol/L 98-107 [facility] Eosinophils/100 WBC (Bld) 1.2 % 0-5 [facility] Glucose [Mass/Vol] 112 mg/dL 74-106 [facility] Comment on above: Fasting Glucose resu lt from 100 to 125 mg/dL suggests IMPAIRED HOMEOSTASIS per A.D.A. criteria. Monocytes/100 WBC (Bld) 8.2 % 0-10 [facility] Neutrophils (Bld) [#/Vol] 6.3 10*3/uL 2.0-7.7 [facility] Neutrophils/100 WBC (Bld) 68.9 % 47-70 [facility] Potassium [Moles/Vol] 4.2 mmol/L 3.5-5.1 [facility] Sodium [Moles/Vol] 140 mmol/L 136-145 [facility] WBC (Bld) [#/Vol] 9.2 10*3/uL 4.4-11.0 [facility] Basophil percentageOrdered B y: Angélica Palomo on 02-15-2024 Bilirubin [Mass/Vol] 0.40 mg/dL 0.20-1.00 [facility] Comment on above: For patients on eltr ombopag therapy, use of Dimension [place] TBIL is not recommended. Chloride [Moles/Vol] 116 mmol/L 98-107 [facility] Eosinophils/100 WBC (Bld) 2.2 % 0-5 [facility] Glucose [Mass/Vol] 116 mg/dL 74-106 [facility] Comment on above: Fasting Glucose resu lt from 100 to 125 mg/dL suggests IMPAIRED HOMEOSTASIS per A.D.A. criteria. Monocytes/100 WBC (Bld) 8.6 % 0-10 [facility] Neutrophils (Bld) [#/Vol] 5.1 10*3/uL 2.0-7.7 [facility] Neutrophils/100 WBC (Bld) 67.3 % 47-70 [facility] Potassium [Moles/Vol] 4.1 mmol/L 3.5-5.1 [facility] Protein [Mass/Vol] 7.7 g/dL 6.4-8.2 [facility] Sodium [Moles/Vol] 142 mmol/L 136-145 [facility] WBC (Bld) [#/Vol] 7.6 10*3/uL 4.4-11.0 [facility] Determination of erythrocyte mean corpuscular volume (MCV)Ordered By: Angélica Palomo on 02-15-2024 MCV (RBC) [Entitic vol] 97.3 fL 80-94 [facility] Determination of erythrocyte mean corpuscular volume (MCV)Ordered By: Pepe Au on 02-15-2024 MCV (RBC) [Entitic vol] 96.7 fL 80-94 [facility] Erythrocyte distribution wid th ratioOrdered By: Angélica Palomo on 02-15-2024 Erythrocyte distribution width (RBC) [Ratio] 14.0 % 11.6-14.6 [facility] Erythrocyte distribution wid th ratioOrdered By: Pepe Au on 02-15-2024 Erythrocyte distribution width (RBC) [Ratio] 14.1 % 11.6-14.6 [facility] Erythrocyte distribution wid th standard deviationOrdered By: Angélica Paolmo on 02-15-2024 Erythrocyte distribution width (RBC) [Entitic vol] 50.0 fL 35.1-43.9 [facility] Erythrocyte distribution wid th standard deviationOrdered By: Pepe Au on 02-15-2024 Erythrocyte distribution width (RBC) [Entitic vol] 50.3 fL 35.1-43.9 [facility] Hematocrit Auto (Bld) [Volum e fraction]Ordered By: Angélica Palomo on 02-15-2024 Hematocrit (Bld) [Volume fraction] 40.3 % 40-54 [facility] Hematocrit Auto (Bld) [Volum e fraction]Ordered By: Pepe Au on 02-15-2024 Hematocrit (Bld) [Volume fraction] 40.8 % 40-54 [facility] Immature granulocytes/100 WB C Auto (Bld)Ordered By: Angélica Palomo on 02-15-2024 Immature granulocytes/100 WBC (Bld) 0.400 % 0.0-0.9 [facility] Comment on above: IG% - Immature Granu locytes (promyelocytes, myelocytes and metamyelocytes) > 1% indicates that a LEFT SHIFT is Present. Immature granulocytes/100 WB C Auto (Bld)Ordered By: Pepe Au on 02-15-2024 Immature granulocytes/100 WBC (Bld) 0.300 % 0.0-0.9 [facility] Comment on above: IG% - Immature Granu locytes (promyelocytes, myelocytes and metamyelocytes) > 1% indicates that a LEFT SHIFT is Present. Iron measurement (mass/mass) Ordered By: Pepe Au on 02-15-2024 Iron (Unsp spec) [Mass/Mass] 31 ug/dL 65-175 [facility] Laboratory - Chemistry and C hemistry - challengeOrdered By: Angélica Palomo on 02-15-2024 Albumin/Globulin [Mass ratio] 0.8 {ratio} 0.9-2.4 [facility] ALP [Catalytic activity/Vol] 123 U/L 45-117 [facility] ALT [Catalytic activity/Vol] 12 U/L 16-61 [facility] Globulin (S) [Mass/Vol] 4.4 g/dL 2.2-4.2 [facility] Lipase [Catalytic activity/Vol] 20 U/L 13-75 [facility] Comment on above: Please note:LIPASE r evised reference range effective 23. New Lipase methodology. Expected to produce lower values than the previous assay method. NEW Reference Range: 13 - 75 U/L Urea nitrogen/Creatinine [Mass ratio] 19.1 mg/mg 09-16 [facility] Laboratory - Chemistry and C hemistry - challengeOrdered By: Pepe Au on 02-15-2024 CO2 [Moles/Vol] 19.0 mmol/L 21.0-32.0 [facility] Ferritin [Mass/Vol] 141 ng/mL 26-388 [facility] Urea nitrogen/Creatinine [Mass ratio] 20.6 mg/mg 09-16 [facility] Laboratory - Hematology and Cell countsOrdered By: Angélica Palomo on 02-15-2024 MCH (RBC) [Entitic mass] 31.2 pg 27.0-32.0 [facility] MCHC (RBC) [Mass/Vol] 32.0 g/dL 32-36 [facility] Platelet mean volume (Bld) [Entitic vol] 10.7 fL 6.2-12.0 [facility] [facility] Plate[facility] (Bld) [#/Vol] 111 10*3/uL 150-450 [facility] - Hematology and Cell countsOrdered By: Pepe Au on 02-15-2024 Nucleated RBC/100 WBC (Bld) [Ratio] 0 % 0-5 [facility] MCH (RBC) [Entitic mass] 30.6 pg 27.0-32.0 [facility] MCHC (RBC) [Mass/Vol] 31.6 g/dL 32-36 [facility] Platelet mean volume (Bld) [Entitic vol] 10.0 fL 6.2-12.0 [facility] Platelets (Bld) [#/Vol] 118 10*3/uL 150-450 [facility] No Panel InformationOrdered By: Angélica Palomo on 02-15-2024 Estimated Creatinine Clearance Calc 25.89 ml/min [facility] Estimated GFR (MDRD) Amer 33 mL/min >60 [facility] Comment on above: GFR Calc Estimated GFR (MDRD) Non-Af Amer 27 mL/min >60 [facility] Comment on above: Non- GFR Calc No Panel InformationOrdered By: Pepe Au on 02-15-2024 Estimated GFR (MDRD) Amer 32 mL/min >60 [facility] Comment on above: GFR Calc Estimated GFR (MDRD) Non-Af Amer 26 mL/min >60 [facility] Comment on above: Non- GFR Calc Total Iron Binding Capacity 264 ug/dL 250-450 [facility] RBC Auto (Bld) [#/Vol]Ordere d By: Angélica Palomo on 02-15-2024 RBC (Bld) [#/Vol] 4.14 10*6/uL 4.6-6.2 [facility] RBC Auto (Bld) [#/Vol]Ordere d By: Pepe Au on 02-15-2024 RBC (Bld) [#/Vol] 4.22 10*6/uL 4.6-6.2 [facility] Serum or plasma calcium aubree urement (mass/volume)Ordered By: Angélica Palomo on 02-15-2024 Calcium [Mass/Vol] 9.5 mg/dL 8.5-10.1 [facility] Serum or plasma calcium aubree urement (mass/volume)Ordered By: Pepe Au on 02-15-2024 Calcium [Mass/Vol] 9.4 mg/dL 8.5-10.1 [facility] Serum or plasma creatinine m easurement (mass/volume)Ordered By: Angélica Palomo on 02-15-2024 Creatinine [Mass/Vol] 2.46 mg/dL 0.70-1.30 [facility] [place] Comment on above: The validity of the calculated GFR & GFRAA in patients over 70 years has not been determined. Clinical correlation is essential. Serum or plasma creatinine m easurement (mass/volume)Ordered By: Pepe Au on 02-15-2024 Creatinine [Mass/Vol] 2.53 mg/dL 0.70-1.30 [facility] Comment on above: The validity of the calculated GFR & GFRAA in patients over 70 years has not been determined. Clinical correlation is essential. Serum or plasma iron saturat ion measurement (mass fraction)Ordered By: Pepe Au on 02-15-2024 Iron saturation [Mass fraction] 11.7 % 15.0-55.0 [facility] Serum or plasma urea nitroge n measurement (mass/volume)Ordered By: Angélica Palomo on 02-15-2024 Urea nitrogen [Mass/Vol] 47 mg/dL 06-14 [facility] Serum or plasma urea nitroge n measurement (mass/volume)Ordered By: Pepe Au on 02-15-2024 Urea nitrogen [Mass/Vol] 52 mg/dL 06-14 [facility] Thin prep Papanicolaou smear with manual screeningOrdered By: Angélica Palomo on 02-15-2024 Thin prep Papanicolaou smear with manual screening 3.3 g/dL 3.2-5.0 [facility] Thin prep Papanicolaou smear with manual screening 18 U/L 15-37 [facility] Thin prep Papanicolaou smear with manual screening 7 5-15 [facility] Thin prep Papanicolaou smear with manual screeningOrdered By: Pepe uA on 02-15-2024 Thin prep Papanicolaou smear with manual screening 3.7 g/dL 3.2-5.0 [facility] Absolute lymphocyte countOrd ered By: Pepe Au on 01-18-2024 Lymphocytes Auto (Unsp spec) [#/Vol] 1.86 10*3/uL 0.83-4.51 [facility] Automated lymphocyte count a s percentage of total leukocytesOrdered By: Pepe Au on 01-18-2024 Lymphocytes/100 WBC Auto (Unsp spec) 25.9 % 19-41 [facility] Basophil percentageOrdered B y: [facility] Au on 01-18-2024 Basophil percentage 3.0 mg/dL 2.5-4.9 [facility] Basophils/100 WBC (Bld) 0.6 % 0-1 [facility] Chloride [Moles/Vol] 111 mmol/L 98-107 [facility] Eosinophils/100 WBC (Bld) 4.0 % 0-5 [facility] Glucose [Mass/Vol] 160 mg/dL 74-106 [facility] Comment on above: Fasting Glucose resu lt greater than or equal to 126 mg/dL suggests DIABETES MELLITUS per A.D.A. criteria. Hemoglobin (Bld) [Mass/Vol] 11.7 g/dL 13.0-16.5 [facility] Monocytes/100 WBC (Bld) 7.3 % 0-10 [facility] Neutrophils (Bld) [#/Vol] 4.4 10*3/uL 2.0-7.7 [facility] Neutrophils/100 WBC (Bld) 61.9 % 47-70 [facility] Potassium [Moles/Vol] 4.7 mmol/L 3.5-5.1 [facility] Sodium [Moles/Vol] 139 mmol/L 136-145 [facility] WBC (Bld) [#/Vol] 7.2 10*3/uL 4.4-11.0 [facility] Determination of erythrocyte mean corpuscular volume (MCV)Ordered By: Pepe Au on 01-18-2024 MCV (RBC) [Entitic vol] 97.4 fL 80-94 [facility] Erythrocyte distribution wid th ratioOrdered By: Pepe Au on 01-18-2024 Erythrocyte distribution width (RBC) [Ratio] 13.7 % 11.6-14.6 [facility] Erythrocyte distribution wid th standard deviationOrdered By: Pepe Au on 01-18-2024 Erythrocyte distribution width (RBC) [Entitic vol] 48.4 fL 35.1-43.9 [facility] Hematocrit Auto (Bld) [Volum e fraction]Ordered By: Pepe Au on 01-18-2024 Hematocrit (Bld) [Volume fraction] 37.2 % 40-54 [facility] Immature granulocytes/100 WB C Auto (Bld)Ordered By: [facility] health[facility] Au on 01-18-2024 Immature granulocytes/100 WBC (Bld) 0.300 % 0.0-0.9 [facility] Comment on above: IG% - Immature Granu locytes (promyelocytes, myelocytes and metamyelocytes) > 1% indicates that a LEFT SHIFT is Present. Iron measurement (mass/mass) Ordered By: Pepe Au on 01-18-2024 Iron (Unsp spec) [Mass/Mass] 54 ug/dL 65-175 [facility] - Chemistry and C hemistry - challengeOrdered By: Pepe Au on 01-18-2024 CO2 [Moles/Vol] 26.0 mmol/L 21.0-32.0 [facility] Ferritin [Mass/Vol] 103 ng/mL 26-388 [facility] Urea nitrogen/Creatinine [Mass ratio] 18.2 mg/mg 10-20 [facility] - Hematology and Cell countsOrdered By: Pepe Au on 01-18-2024 MCH (RBC) [Entitic mass] 30.6 pg 27.0-32.0 [facility] MCHC (RBC) [Mass/Vol] 31.5 g/dL 32-36 [facility] Nucleated RBC/100 WBC (Bld) [Ratio] 0 % 0-5 [facility] Platelet mean volume (Bld) [Entitic vol] 10.2 fL 6.2-12.0 [facility] Platelets (Bld) [#/Vol] 131 10*3/uL 150-450 [facility] No Panel InformationOrdered By: Pepe Au on 01-18-2024 Estimated GFR (MDRD) Amer 33 mL/min >60 [facility] Comment on above: GFR Calc Estimated GFR (MDRD) Non-Af Amer 27 mL/min >60 [facility] Comment on above: Non- GFR Calc Parathyroid Hormone (Intact) 20.1 pg/mL 18.4-80.1 [facility] Total Iron Binding Capacity 273 ug/dL 250-450 [facility] RBC Auto (Bld) [#/Vol]Ordere d By: Pepe Au on 01-18-2024 RBC (Bld) [#/Vol] 3.82 10*6/uL 4.6-6.2 [facility] Serum or plasma calcium aubree urement (mass/volume)Ordered By: Pepe Au on 01-18-2024 Calcium [Mass/Vol] 9.8 mg/dL 8.5-10.1 [facility] Serum or plasma creatinine m easurement (mass/volume)Ordered By: Pepe Au on 01-18-2024 Creatinine [Mass/Vol] 2.42 mg/dL 0.70-1.30 [facility] Comment on above: The validity of the calculated GFR & GFRAA in patients over 70 years has not been determined. Clinical correlation is essential. Serum or plasma iron saturat ion measurement (mass fraction)Ordered By: Pepe Au on 01-18-2024 Iron saturation [Mass fraction] 19.8 % 15.0-55.0 [facility] Serum or plasma urea nitroge n measurement (mass/volume)Ordered By: Pepe Au on 01-18-2024 Urea nitrogen [Mass/Vol] 44 mg/dL 7-18 [facility] Thin prep Papanicolaou smear with manual screeningOrdered By: Pepe Au on 01-18-2024 Thin prep Papanicolaou smear with manual screening 3.2 g/dL 3.2-5.0 [facility] Absolute lymphocyte countOrd ered By: Pepe Au on 12-21-2023 Lymphocytes Auto (Unsp spec) [#/Vol] 2.33 10*3/uL 0.83-4.51 [facility] Automated lymphocyte count a s percentage of total leukocytesOrdered By: Pepe Au on 12-21-2023 Lymphocytes/100 WBC Auto (Unsp spec) 36.6 % 19-41 [facility] Basophil percentageOrdered B y: Pepe Au on 12-21-2023 Basophil percentage 3.7 mg/dL 2.5-4.9 [facility] Basophils/100 WBC (Bld) 0.3 % 0-1 [facility] Chloride [Moles/Vol] 110 mmol/L 98-107 [facility] Eosinophils/100 WBC (Bld) 2.0 % 0-5 [facility] Glucose [Mass/Vol] 89 mg/dL 74-106 [facility] Hemoglobin (Bld) [Mass/Vol] 11.0 g/dL 13.0-16.5 [facility] Monocytes/100 WBC (Bld) 6.1 % 0-10 [facility] Neutrophils (Bld) [#/Vol] 3.5 10*3/uL 2.0-7.7 [facility] Neutrophils/100 WBC (Bld) 54.8 % 47-70 [facility] Potassium [Moles/Vol] 4.4 mmol/L 3.5-5.1 [facility] Sodium [Moles/Vol] 137 mmol/L 136-145 [facility] WBC (Bld) [#/Vol] 6.4 10*3/uL 4.4-11.0 [facility] Determination of erythrocyte mean corpuscular volume (MCV)Ordered By: Pepe Au on 12-21-2023 MCV (RBC) [Entitic vol] 98.1 fL 80-94 [facility] Erythrocyte distribution wid th ratioOrdered By: [facility] Angely on 12-21-2023 Erythrocyte distribution width (RBC) [Ratio] 14.6 % 11.6-14.6 [facility] Erythrocyte distribution wid th standard deviationOrdered By: [facility]ratr[facility] healthsteve Au on 12-21-2023 Erythrocyte distribution width (RBC) [Entitic vol] 52.2 fL 35.1-43.9 [facility] Hematocrit Auto (Bld) [Volum e fraction]Ordered By: Pepe Au on 12-21-2023 Hematocrit (Bld) [Volume fraction] 35.8 % 40-54 [facility] Immature granulocytes/100 WB C Auto (Bld)Ordered By: Pepe Au on 12-21-2023 Immature granulocytes/100 WBC (Bld) 0.200 % 0.0-0.9 [facility] Comment on above: IG% - Immature Granu locytes (promyelocytes, myelocytes and metamyelocytes) > 1% indicates that a LEFT SHIFT is Present. Iron measurement (mass/mass) Ordered By: Pepe Au on 12-21-2023 Iron (Unsp spec) [Mass/Mass] 70 ug/dL 65-175 [facility] - Chemistry and C hemistry - challengeOrdered By: Pepe Au on 12-21-2023 CO2 [Moles/Vol] 24.0 mmol/L 21.0-32.0 [facility] Ferritin [Mass/Vol] 125 ng/mL 26-388 [facility] Urea nitrogen/Creatinine [Mass ratio] 18.7 mg/mg 10-20 [facility] - Hematology and Cell countsOrdered By: Pepe Au on 12-21-2023 MCH (RBC) [Entitic mass] 30.1 pg 27.0-32.0 [facility] MCHC (RBC) [Mass/Vol] 30.7 g/dL 32-36 [facility] Nucleated RBC/100 WBC (Bld) [Ratio] 0 % 0-5 [facility] Platelets (Bld) [#/Vol] 122 10*3/uL 150-450 [facility] No Panel InformationOrdered By: Pepe Au on 12-21-2023 Estimated GFR (MDRD) Amer 31 mL/min >60 [facility] Comment on above: GFR Calc Estimated GFR (MDRD) Non-Af Amer 26 mL/min >60 [facility] Comment on above: Non- GFR Calc Total Iron Binding Capacity 251 ug/dL 250-450 [facility] Platelet mean volume Evan-Ec ker (Bld) [Entitic vol]Ordered By: Pepe Au on 12-21-2023 Platelet mean volume (Bld) [Entitic vol] 10.3 fL 6.2-12.0 [facility] RBC Auto (Bld) [#/Vol]Ordere d By: Pepe Au on 12-21-2023 RBC (Bld) [#/Vol] 3.65 10*6/uL 4.6-6.2 [facility] Serum or plasma calcium aubree urement (mass/volume)Ordered By: Pepe Au on 12-21-2023 Calcium [Mass/Vol] 9.8 mg/dL 8.5-10.1 [facility] Serum or plasma creatinine m easurement (mass/volume)Ordered By: Pepe Au on 12-21-2023 Creatinine [Mass/Vol] 2.57 mg/dL 0.70-1.30 [facility] [place] Comment on above: The validity of the calculated GFR & GFRAA in patients over 70 years has not been determined. Clinical correlation is essential. Serum or plasma iron saturat ion measurement (mass fraction)Ordered By: Pepe Au on 12-21-2023 Iron saturation [Mass fraction] 27.9 % 15.0-55.0 [facility] Serum or plasma urea nitroge n measurement (mass/volume)Ordered By: [facility] Au on 12-21-2023 Urea nitrogen [Mass/Vol] 48 mg/dL 7-18 [facility] Thin prep Papanicolaou smear with manual screeningOrdered By: Pepe Au on 12-21-2023 Thin prep Papanicolaou smear with manual screening 3.1 g/dL 3.2-5.0 [facility] Absolute lymphocyte countOrd ered By: Pepe Au on 12-02-2023 Lymphocytes Auto (Unsp spec) [#/Vol] 1.49 10*3/uL 0.83-4.51 [facility] Basophil percentageOrdered B y: Pepe Au on 12-02-2023 Basophil percentage 3.3 mg/dL 2.5-4.9 [facility] Basophils/100 WBC (Bld) 0.3 % 0-1 [facility] Chloride [Moles/Vol] 111 mmol/L 98-107 [facility] Eosinophils/100 WBC (Bld) 0.9 % 0-5 [facility] Glucose [Mass/Vol] 131 mg/dL 74-106 [facility] Comment on above: Fasting Glucose resu lt greater than or equal to 126 mg/dL suggests DIABETES MELLITUS per A.D.A. criteria. Neutrophils (Bld) [#/Vol] 6.6 10*3/uL 2.0-7.7 [facility] Neutrophils/100 WBC (Bld) 75.9 % 47-70 [facility] Potassium [Moles/Vol] 4.7 mmol/L 3.5-5.1 [facility] Sodium [Moles/Vol] 142 mmol/L 136-145 [facility] WBC (Bld) [#/Vol] 8.7 10*3/uL 4.4-11.0 [facility] Blood erythrocytes count (nu mber/volume)Ordered By: Pepe Au on 12-02-2023 RBC (Bld) [#/Vol] 3.48 10*6/uL 4.6-6.2 [facility] Blood hemoglobin measurement (mass/volume)Ordered By: Pepe Au on 12-02-2023 Hemoglobin (Bld) [Mass/Vol] 10.9 g/dL 13.0-16.5 [facility] Blood lymphocytes/100 leukoc ytesOrdered By: Pepe Au on 12-02-2023 Lymphocytes/100 WBC (Bld) 17.1 % 19-41 [facility] Blood monocytes/100 leukocyt esOrdered By: Pepe Au on 12-02-2023 Monocytes/100 WBC (Bld) 5.5 % 0-10 [facility] Blood platelet mean volumeOr dered By: Pepe Au on 12-02-2023 Platelet mean volume (Bld) [Entitic vol] 10.8 fL 6.2-12.0 [facility] Determination of erythrocyte mean corpuscular volume (MCV)Ordered By: Pepe Au on 12-02-2023 MCV (RBC) [Entitic vol] 101.1 fL 80-94 [facility] Hematocrit Auto (Bld) [Volum e fraction]Ordered By: Pepe Au on 12-02-2023 Hematocrit (Bld) [Volume fraction] 35.2 % 40-54 [facility] Iron measurement (mass/mass) Ordered By: Pepe Au on 12-02-2023 Iron (Unsp spec) [Mass/Mass] 70 ug/dL 65-175 [facility] - Chemistry and C hemistry - challengeOrdered By: Pepe Au on 12-02-2023 CO2 [Moles/Vol] 26.0 mmol/L 21.0-32.0 [facility] Urea nitrogen/Creatinine [Mass ratio] 17.5 mg/mg 10-20 [facility] - Hematology and Cell countsOrdered By: Pepe Au on 12-02-2023 Erythrocyte distribution width (RBC) [Entitic vol] 58.1 fL 35.1-43.9 [facility] Erythrocyte distribution width (RBC) [Ratio] 15.8 % 11.6-14.6 [facility] Immature granulocytes/100 WBC (Bld) 0.300 % 0.0-0.9 [facility] Comment on above: IG% - Immature Granu locytes (promyelocytes, myelocytes and metamyelocytes) > 1% indicates that a LEFT SHIFT is Present. MCH (RBC) [Entitic mass] 31.3 pg 27.0-32.0 [facility] Nucleated RBC/100 WBC (Bld) [Ratio] 0 % 0-5 [facility] MCHC Auto (RBC) [Mass/Vol]Or dered By: Pepe Au on 12-02-2023 MCHC (RBC) [Mass/Vol] 31.0 g/dL 32-36 [facility] No Panel InformationOrdered By: Pepe Au on 12-02-2023 Estimated GFR (MDRD) Amer 33 mL/min >60 [facility] Comment on above: GFR Calc Estimated GFR (MDRD) Non-Af Amer 27 mL/min >60 [facility] Comment on above: Non- GFR Calc Parathyroid Hormone (Intact) 26.3 pg/mL 18.4-80.1 [facility] Total Iron Binding Capacity 233 ug/dL 250-450 [facility] Platelets bldOrdered By: Zandra Au on 12-02-2023 Platelets (Bld) [#/Vol] 162 10*3/uL 150-450 [facility] Serum or plasma albumin aubree urement (mass/volume)Ordered By: Pepe Au on 12-02-2023 Albumin [Mass/Vol] 3.1 g/dL 3.2-5.0 [facility] Serum or plasma calcium aubree urement (mass/volume)Ordered By: Pepe Au on 12-02-2023 Calcium [Mass/Vol] 9.0 mg/dL 8.5-10.1 [facility] Serum or plasma creatinine m easurement (mass/volume)Ordered By: Pepe Au on 12-02-2023 Creatinine [Mass/Vol] 2.46 mg/dL 0.70-1.30 [facility] [place] Comment on above: The validity of the calculated GFR & GFRAA in patients over 70 years has not been determined. Clinical correlation is essential. Serum or plasma ferritin laurie surement (mass/volume)Ordered By: Pepe Au on 12-02-2023 Ferritin [Mass/Vol] 118 ng/mL 26-388 [facility] Serum or plasma urea nitroge n measurement (mass/volume)Ordered By: Pepe Au on 12-02-2023 Urea nitrogen [Mass/Vol] 43 mg/dL 7-18 [facility] Serum or plasma uric acid me asurement (mass/volume)Ordered By: Pepe Au on 12-02-2023 Urate [Mass/Vol] 5.5 mg/dL 3.5-7.2 [facility] Comment on above: The drugs N-Acetylcy steine and Metamizole may falsely depress this assay. Absolute lymphocyte countOrd ered By: Pepe Au on 11-23-2023 Lymphocytes Auto (Unsp spec) [#/Vol] 1.50 10*3/uL 0.83-4.51 [facility] Basophil percentageOrdered B y: Pepe Au on 11-23-2023 Basophil percentage 195 mg/dL 74-106 [facility] Basophil percentage 3.1 mg/dL 2.5-4.9 [facility] Basophil percentage 139 mmol/L 136-145 [facility] Basophil percentage 4.4 mmol/L 3.5-5.1 [facility] Basophil percentage 110 mmol/L 98-107 [facility] Basophils (Bld) [#/Vol] 7.4 10*3/uL 4.4-11.0 [facility] Basophils (Bld) [#/Vol] 5.1 10*3/uL 2.0-7.7 [facility] Basophils/100 WBC (Bld) 68.1 % 47-70 [facility] Basophils/100 WBC (Bld) 4.0 % 0-5 [facility] Basophils/100 WBC (Bld) 0.5 % 0-1 [facility] Chloride [Moles/Vol] 110 mmol/L 98-107 [facility] Eosinophils/100 WBC (Bld) 4.0 % 0-5 [facility] Glucose [Mass/Vol] 195 mg/dL 74-106 [facility] Comment on above: Fasting Glucose resu lt greater than or equal to 126 mg/dL suggests DIABETES MELLITUS per A.D.A. criteria. Neutrophils (Bld) [#/Vol] 5.1 10*3/uL 2.0-7.7 [facility] Neutrophils/100 WBC (Bld) 68.1 % 47-70 [facility] Potassium [Moles/Vol] 4.4 mmol/L 3.5-5.1 [facility] Sodium [Moles/Vol] 139 mmol/L 136-145 [facility] WBC (Bld) [#/Vol] 7.4 10*3/uL 4.4-11.0 [facility] Blood erythrocytes count (nu mber/volume)Ordered By: Pepe Au on 11-23-2023 RBC (Bld) [#/Vol] 3.23 10*6/uL 4.6-6.2 [facility] Blood hemoglobin measurement (mass/volume)Ordered By: Pepe Au on 11-23-2023 Hemoglobin (Bld) [Mass/Vol] 10.2 g/dL 13.0-16.5 [facility] Blood lymphocytes/100 leukoc ytesOrdered By: Pepe Au on 11-23-2023 Lymphocytes/100 WBC (Bld) 20.2 % 19-41 [facility] Blood monocytes/100 leukocyt esOrdered By: Pepe Au on 11-23-2023 Monocytes/100 WBC (Bld) 6.7 % 0-10 [facility] Blood platelet mean volumeOr dered By: Pepe Au on 11-23-2023 Platelet mean volume (Bld) [Entitic vol] 10.2 fL 6.2-12.0 [facility] Determination of erythrocyte mean corpuscular volume (MCV)Ordered By: Pepe Au on 11-23-2023 MCV (RBC) [Entitic vol] 98.5 fL 80-94 [facility] Hematocrit Auto (Bld) [Volum e fraction]Ordered By: Pepe Au on 11-23-2023 Hematocrit (Bld) [Volume fraction] 31.8 % 40-54 [facility] Iron measurement (mass/mass) Ordered By: Pepe Au on 11-23-2023 Iron (Unsp spec) [Mass/Mass] 57 ug/dL 65-175 [facility] - Chemistry and C hemistry - challengeOrdered By: [facility]ratr[facility] healthsteve Au on 11-23-2023 CO2 [Moles/Vol] 26.0 mmol/L 21.0-32.0 [facility] Urea nitrogen/Creatinine [Mass ratio] 26.6 mg/mg 10-20 [facility] - Hematology and Cell countsOrdered By: Pepe Au on 11-23-2023 Erythrocyte distribution width (RBC) [Entitic vol] 55.5 fL 35.1-43.9 [facility] Erythrocyte distribution width (RBC) [Ratio] 15.7 % 11.6-14.6 [facility] Immature granulocytes/100 WBC (Bld) 0.500 % 0.0-0.9 [facility] Comment on above: IG% - Immature Granu locytes (promyelocytes, myelocytes and metamyelocytes) > 1% indicates that a LEFT SHIFT is Present. MCH (RBC) [Entitic mass] 31.6 pg 27.0-32.0 [facility] Nucleated RBC/100 WBC (Bld) [Ratio] 0 % 0-5 [facility] MCHC Auto (RBC) [Mass/Vol]Or dered By: Pepe Au on 11-23-2023 MCHC (RBC) [Mass/Vol] 32.1 g/dL 32-36 [facility] No Panel InformationOrdered By: Pepe Au on 11-23-2023 Estimated GFR (MDRD) Amer 33 mL/min >60 [facility] Comment on above: GFR Calc Estimated GFR (MDRD) Non-Af Amer 27 mL/min >60 [facility] Comment on above: Non- GFR Calc Total Iron Binding Capacity 223 ug/dL 250-450 [facility] 31.6 pg 27.0-32.0 [facility] 15.7 % 11.6-14.6 [facility] 55.5 fl 35.1-43.9 [facility] 0.500 % 0.0-0.9 [facility] 0 % 0-5 [facility] 27 mL/min >60 [facility] 33 mL/min >60 [facility] 26.6 RATIO 10-20 [facility] 26.0 mmol/L 21.0-32.0 [facility] 223 ug/dL 250-450 [facility] Platelets bldOrdered By: Zadnra Au on 11-23-2023 Platelets (Bld) [#/Vol] 134 10*3/uL 150-450 [facility] Serum or plasma albumin aubree urement (mass/volume)Ordered By: Pepe Au on 11-23-2023 Albumin [Mass/Vol] 2.9 g/dL 3.2-5.0 [facility] Serum or plasma calcium aubree urement (mass/volume)Ordered By: Pepe Au on 11-23-2023 Calcium [Mass/Vol] 9.8 mg/dL 8.5-10.1 [facility] Serum or plasma creatinine m easurement (mass/volume)Ordered By: Pepe Au on 11-23-2023 Creatinine [Mass/Vol] 2.44 mg/dL 0.70-1.30 [facility] Comment on above: The validity of the calculated GFR & GFRAA in patients over 70 years has not been determined. Clinical correlation is essential. Serum or plasma ferritin laurie surement (mass/volume)Ordered By: Pepe Au on 11-23-2023 Ferritin [Mass/Vol] 208 ng/mL 26-388 [facility] Serum or plasma iron saturat ion measurement (mass fraction)Ordered By: Pepe Au on 11-23-2023 Iron saturation [Mass fraction] 25.6 % 15.0-55.0 [facility] Serum or plasma urea nitroge n measurement (mass/volume)Ordered By: [facility]ratr[facility] healthsteve Alexronaldo on 11-23-2023 Urea nitrogen [Mass/Vol] 65 mg/dL 7-18 [facility] Absolute lymphocyte countOrd ered By: [facility] on 10-26-2023 Lymphocytes Auto (Unsp spec) [#/Vol] 1.33 10*3/uL 0.83-4.51 [facility] Basophil percentageOrdered B y: [facility] Angely on 10-26-2023 Basophil percentage 176 mg/dL 74-106 [facility] Basophil percentage 2.9 mg/dL 2.5-4.9 [facility] Basophil percentage 141 mmol/L 136-145 [facility] Basophil percentage 4.5 mmol/L 3.5-5.1 [facility] Basophil percentage 109 mmol/L 98-107 [facility] Basophils (Bld) [#/Vol] 5.9 10*3/uL 4.4-11.0 [facility] Basophils (Bld) [#/Vol] 3.7 10*3/uL 2.0-7.7 [facility] Basophils/100 WBC (Bld) 62.8 % 47-70 [facility] Basophils/100 WBC (Bld) 4.8 % 0-5 [facility] Basophils/100 WBC (Bld) 0.7 % 0-1 [facility] Chloride [Moles/Vol] 109 mmol[facility]L 98-107 [facility] WBC (Bld) 4.8 % 0-5 [facility] Glucose [Mass/Vol] 176 mg/dL 74-106 [facility] Comment on above: Fasting Glucose resu lt greater than or equal to 126 mg/dL suggests DIABETES MELLITUS per A.D.A. criteria. Neutrophils (Bld) [#/Vol] 3.7 10*3/uL 2.0-7.7 [facility] Neutrophils/100 WBC (Bld) 62.8 % 47-70 [facility] Potassium [Moles/Vol] 4.5 mmol/L 3.5-5.1 [facility] [place] Sodium [Moles/Vol] 141 mmol/L 136-145 [facility] WBC (Bld) [#/Vol] 5.9 10*3/uL 4.4-11.0 [facility] Blood erythrocytes count (nu mber/volume)Ordered By: Pepe Au on 10-26-2023 RBC (Bld) [#/Vol] 3.85 10*6/uL 4.6-6.2 [facility] Blood hemoglobin measurement (mass/volume)Ordered By: Pepe Au on 10-26-2023 Hemoglobin (Bld) [Mass/Vol] 11.8 g/dL 13.0-16.5 [facility] Blood lymphocytes/100 leukoc ytesOrdered By: Pepe Au on 10-26-2023 Lymphocytes/100 WBC (Bld) 22.7 % 19-41 [facility] Blood monocytes/100 leukocyt esOrdered By: Pepe Au on 10-26-2023 Monocytes/100 WBC (Bld) 8.7 % 0-10 [facility] Blood platelet mean volumeOr dered By: Pepe Au on 10-26-2023 Platelet mean volume (Bld) [Entitic vol] 10.3 fL 6.2-12.0 [facility] Determination of erythrocyte mean corpuscular volume (MCV)Ordered By: Pepe Au on 10-26-2023 MCV (RBC) [Entitic vol] 98.4 fL 80-94 [facility] Hematocrit Auto (Bld) [Volum e fraction]Ordered By: Pepe Au on 10-26-2023 Hematocrit (Bld) [Volume fraction] 37.9 % 40-54 [facility] Iron measurement (mass/mass) Ordered By: Pepe Au on 10-26-2023 Iron (Unsp spec) [Mass/Mass] 41 ug/dL 65-175 [facility] Laboratory - Chemistry and C hemistry - challengeOrdered By: Pepe Au on 10-26-2023 CO2 [Moles/Vol] 24.0 mmol/L 21.0-32.0 [facility] Urea nitrogen/Creatinine [Mass ratio] 23.1 mg/mg 10-20 [facility] Laboratory - Hematology and Cell countsOrdered By: Pepe Au on 10-26-2023 Erythrocyte distribution width (RBC) [Entitic vol] 51.5 fL 35.1-43.9 [facility] Erythrocyte distribution width (RBC) [Ratio] 14.3 % 11.6-14.6 [facility] Immature granulocytes/100 WBC (Bld) 0.300 % 0.0-0.9 [facility] Comment on above: IG% - Immature Granu locytes (promyelocytes, myelocytes and metamyelocytes) > 1% indicates that a LEFT SHIFT is Present. MCH (RBC) [Entitic mass] 30.6 pg 27.0-32.0 [facility] Nucleated RBC/100 WBC (Bld) [Ratio] 0 % 0-5 [facility] MCHC Auto (RBC) [Mass/Vol]Or dered By: Pepe Au on 10-26-2023 MCHC (RBC) [Mass/Vol] 31.1 g/dL 32-36 [facility] [place] No Panel InformationOrdered By: Pepe Au on 10-26-2023 Estimated GFR (MDRD) Amer 34 mL/min >60 [facility] Comment on above: GFR Calc Estimated GFR (MDRD) Non-Af Amer 28 mL/min >60 [facility] Comment on above: Non- GFR Calc Total Iron Binding Capacity 243 ug/dL 250-450 [facility] 30.6 pg 27.0-32.0 [facility] 14.3 % 11.6-14.6 [facility] 51.5 fl 35.1-43.9 [facility] 0.300 % 0.0-0.9 [facility] 0 % 0-5 [facility] 28 mL/min >60 [facility] 34 mL/min >60 [facility] 23.1 RATIO 10-20 [facility] 24.0 mmol/L 21.0-32.0 [facility] 243 ug/dL 250-450 [facility] Platelets bldOrdered By: Zandra Au on 10-26-2023 Platelets (Bld) [#/Vol] 162 10*3/uL 150-450 [facility] Serum or plasma albumin aubree urement (mass/volume)Ordered By: Pepe Au on 10-26-2023 Albumin [Mass/Vol] 3.2 g/dL 3.2-5.0 [facility] Serum or plasma calcium aubree urement (mass/volume)Ordered By: Pepe Au on 10-26-2023 Calcium [Mass/Vol] 9.3 mg/dL 8.5-10.1 [facility] Serum or plasma creatinine m easurement (mass/volume)Ordered By: Pepe Au on 10-26-2023 Creatinine [Mass/Vol] 2.38 mg/dL 0.70-1.30 [facility] [place] Comment on above: The validity of the calculated GFR & GFRAA in patients over 70 years has not been determined. Clinical correlation is essential. Serum or plasma ferritin laurie surement (mass/volume)Ordered By: Pepe Au on 10-26-2023 Ferritin [Mass/Vol] 177 ng/mL 26-388 [facility] Serum or plasma iron saturat ion measurement (mass fraction)Ordered By: Zandratrinity healthsteve Au on 10-26-2023 Iron saturation [Mass fraction] 16.9 % 15.0-55.0 [facility] Serum or plasma urea nitroge n measurement (mass/volume)Ordered By: Pepe Au on 10-26-2023 Urea nitrogen [Mass/Vol] 55 mg/dL 7-18 [facility] Absolute lymphocyte countOrd ered By: Pepe Au on 09-28-2023 Lymphocytes Auto (Unsp spec) [#/Vol] 1.28 10*3/uL 0.83-4.51 [facility] Basophil percentageOrdered B y: Pepe Au on 09-28-2023 Basophil percentage 113 mg/dL 74-106 [facility] Basophil percentage 3.5 mg/dL 2.5-4.9 [facility] Basophil percentage 141 mmol/L 136-145 [facility] Basophil percentage 4.7 mmol/L 3.5-5.1 [facility] Basophil percentage 110 mmol/L 98-107 [facility] Basophils (Bld) [#/Vol] 7.2 10*3/uL 4.4-11.0 [facility] Basophils (Bld) [#/Vol] 5.3 10*3/uL 2.0-7.7 [facility] Basophils/100 WBC (Bld) 73.9 % 47-70 [facility] Basophils/100 WBC (Bld) 2.1 % 0-5 [facility] Basophils/100 WBC (Bld) 0.4 % 0-1 [facility] Chloride [Moles/Vol] 110 mmol/L 98-107 [facility] Eosinophils/100 WBC (Bld) 2.1 % 0-5 [facility] Glucose [Mass/Vol] 113 mg/dL 74-106 [facility] Comment on above: Fasting Glucose resu lt from 100 to 125 mg/dL suggests IMPAIRED HOMEOSTASIS per A.D.A. criteria. Neutrophils (Bld) [#/Vol] 5.3 10*3/uL 2.0-7.7 [facility] Neutrophils/100 WBC (Bld) 73.9 % 47-70 [facility] Potassium [Moles/Vol] 4.7 mmol/L 3.5-5.1 [facility] Sodium [Moles/Vol] 141 mmol/L 136-145 [facility] WBC (Bld) [#/Vol] 7.2 10*3/uL 4.4-11.0 [facility] Blood erythrocytes count (nu mber/volume)Ordered By: Pepe Au on 09-28-2023 RBC (Bld) [#/Vol] 3.28 10*6/uL 4.6-6.2 [facility] Blood hemoglobin measurement (mass/volume)Ordered By: Pepe Au on 09-28-2023 Hemoglobin (Bld) [Mass/Vol] 10.2 g/dL 13.0-16.5 [facility] Blood lymphocytes/100 leukoc ytesOrdered By: Pepe Au on 09-28-2023 Lymphocytes/100 WBC (Bld) 17.9 % 19-41 [facility] Blood monocytes/100 leukocyt esOrdered By: Pepe Au on 09-28-2023 Monocytes/100 WBC (Bld) 5.4 % 0-10 [facility] Blood platelet mean volumeOr dered By: Pepe Au on 09-28-2023 Platelet mean volume (Bld) [Entitic vol] 10.7 fL 6.2-12.0 [facility] Determination of erythrocyte mean corpuscular volume (MCV)Ordered By: Pepe Au on 09-28-2023 MCV (RBC) [Entitic vol] 100.9 fL 80-94 [facility] Hematocrit Auto (Bld) [Volum e fraction]Ordered By: Pepe Au on 09-28-2023 Hematocrit (Bld) [Volume fraction] 33.1 % 40-54 [facility] Iron measurement (mass/mass) Ordered By: Pepe Au on 09-28-2023 Iron (Unsp spec) [Mass/Mass] 49 ug/dL 65-175 [facility] Laboratory - Chemistry and C hemistry - challengeOrdered By: Pepe Au on 09-28-2023 CO2 [Moles/Vol] 27.0 mmol/L 21.0-32.0 [facility] Urea nitrogen/Creatinine [Mass ratio] 24.4 mg/mg 10-20 [facility] Laboratory - Hematology and Cell countsOrdered By: Pepe Au on 09-28-2023 Erythrocyte distribution width (RBC) [Entitic vol] 55.8 fL 35.1-43.9 [facility] Erythrocyte distribution width (RBC) [Ratio] 15.2 % 11.6-14.6 [facility] Immature granulocytes/100 WBC (Bld) 0.300 % 0.0-0.9 [facility] Comment on above: IG% - Immature Granu locytes (promyelocytes, myelocytes and metamyelocytes) > 1% indicates that a LEFT SHIFT is Present. MCH (RBC) [Entitic mass] 31.1 pg 27.0-32.0 [facility] Nucleated RBC/100 WBC (Bld) [Ratio] 0 % 0-5 [facility] MCHC Auto (RBC) [Mass/Vol]Or dered By: Pepe Au on 09-28-2023 MCHC (RBC) [Mass/Vol] 30.8 g/dL 32-36 [facility] No Panel InformationOrdered By: Pepe Au on 09-28-2023 Estimated GFR (MDRD) Amer 35 mL/min >60 [facility] Comment on above: GFR Calc Estimated GFR (MDRD) Non-Af Amer 29 mL/min >60 [facility] Comment on above: Non- GFR Calc Parathyroid Hormone (Intact) 33.4 pg/mL 18.4-80.1 [facility] Total Iron Binding Capacity 257 ug/dL 250-450 [facility] 31.1 pg 27.0-32.0 [facility] 15.2 % 11.6-14.6 [facility] 55.8 fl 35.1-43.9 [facility] 0.300 % 0.0-0.9 [facility] 0 % 0-5 [facility] 29 mL/min >60 [facility] 35 mL/min >60 [facility] 24.4 RATIO 10-20 [facility] 27.0 mmol/L 21.0-32.0 [facility] 257 ug/dL 250-450 [facility] 33.4 pg/mL 18.4-80.1 [facility] Platelets bldOrdered By: Zandra Au on 09-28-2023 Platelets (Bld) [#/Vol] 147 10*3/uL 150-450 [facility] Serum or plasma albumin aubree urement (mass/volume)Ordered By: Pepe Au on 09-28-2023 Albumin [Mass/Vol] 3.1 g/dL 3.2-5.0 [facility] Serum or plasma calcium aubree urement (mass/volume)Ordered By: Pepe Au on 09-28-2023 Calcium [Mass/Vol] 9.3 mg/dL 8.5-10.1 [facility] Serum or plasma creatinine m easurement (mass/volume)Ordered By: Pepe Au on 09-28-2023 Creatinine [Mass/Vol] 2.34 mg/dL 0.70-1.30 [facility] Comment on above: The validity of the calculated GFR & GFRAA in patients over 70 years has not been determined. Clinical correlation is essential. Serum or plasma ferritin laurie surement (mass/volume)Ordered By: Pepe Au on 09-28-2023 Ferritin [Mass/Vol] 175 ng/mL 26-388 [facility] Serum or plasma iron saturat ion measurement (mass fraction)Ordered By: Pepe Au on 09-28-2023 Iron saturation [Mass fraction] 19.1 % 15.0-55.0 [facility] Serum or plasma urea nitroge n measurement (mass/volume)Ordered By: Pepe Au on 09-28-2023 Urea nitrogen [Mass/Vol] 57 mg/dL 7-18 [facility] Absolute lymphocyte countOrd ered By: Eladio Lucas on 09-22-2023 Lymphocytes Auto (Unsp spec) [#/Vol] 1.44 10*3/uL 0.83-4.51 [facility] Basophil percentageOrdered B y: Eladio Lucas on 09-22-2023 Basophil percentage 129 mg/dL 74-106 [facility] Basophil percentage 137 mmol/L 136-145 [facility] Basophil percentage 4.4 mmol/L 3.5-5.1 [facility] Basophil percentage 105 mmol/L 98-107 [facility] Basophils (Bld) [#/Vol] 7.7 10*3/uL 4.4-11.0 [facility] Basophils (Bld) [#/Vol] 5.3 10*3/uL 2.0-7.7 [facility] Basophils/100 WBC (Bld) 68.7 % 47-70 [facility] Basophils/100 WBC (Bld) 3.7 % 0-5 [facility] Basophils/100 WBC (Bld) 0.4 % 0-1 [facility] Chloride [Moles/Vol] 105 mmol[facility]L 98-107 [facility] WBC (Bld) 3.7 % 0-5 [facility] Glucose [Mass/Vol] 129 mg/dL 74-106 [facility] Comment on above: Fasting Glucose resu lt greater than or equal to 126 mg/dL suggests DIABETES MELLITUS per A.D.A. criteria. Neutrophils (Bld) [#/Vol] 5.3 10*3/uL 2.0-7.7 [facility] Neutrophils/100 WBC (Bld) 68.7 % 47-70 [facility] Potassium [Moles/Vol] 4.4 mmol/L 3.5-5.1 [facility] Sodium [Moles/Vol] 137 mmol/L 136-145 [facility] WBC (Bld) [#/Vol] 7.7 10*3/uL 4.4-11.0 [facility] Blood erythrocytes count (nu mber/volume)Ordered By: Eladio Lucas on 09-22-2023 RBC (Bld) [#/Vol] 3.03 10*6/uL 4.6-6.2 [facility] Blood hemoglobin measurement (mass/volume)Ordered By: Eladio Lucas on 09-22-2023 Hemoglobin (Bld) [Mass/Vol] 9.5 g/dL 13.0-16.5 [facility] Blood lymphocytes/100 leukoc ytesOrdered By: Eladio Lucas on 09-22-2023 Lymphocytes/100 WBC (Bld) 18.8 % 19-41 [facility] Blood monocytes/100 leukocyt esOrdered By: Eladio Lucas on 09-22-2023 Monocytes/100 WBC (Bld) 8.1 % 0-10 [facility] Blood platelet mean volumeOr dered By: Eladio Lucas on 09-22-2023 Platelet mean volume (Bld) [Entitic vol] 11.5 fL 6.2-12.0 [facility] Determination of erythrocyte mean corpuscular volume (MCV)Ordered By: Eladio Lucas on 09-22-2023 MCV (RBC) [Entitic vol] 100.0 fL 80-94 [facility] Glucose Glucometer (dC) [M ass/Vol]Ordered By: Eladio Lucas on 09-22-2023 Glucose [Mass/Vol] 182 mg/dL 74-106 [facility] Comment on above: MANAGEMENT OF PATIEN T CARE PER NURSING PROTOCOL Glucose [Mass/Vol] 197 mg/dL 74-106 [facility] Hematocrit Auto (Bld) [Volum e fraction]Ordered By: Eladio Lucas on 09-22-2023 Hematocrit (Bld) [Volume fraction] 30.3 % 40-54 [facility] Laboratory - Chemistry and C hemistry - challengeOrdered By: Eladio Lucas on 09-22-2023 CO2 [Moles/Vol] 27.0 mmol/L 21.0-32.0 [facility] Urea nitrogen/Creatinine [Mass ratio] 26.5 mg/mg 10 [facility] Laboratory - Hematology and Cell countsOrdered By: Eladio Lucas on 09-22-2023 Erythrocyte distribution width (RBC) [Entitic vol] 57.0 fL 35.1-43.9 [facility] Erythrocyte distribution width (RBC) [Ratio] 15.6 % 11.6-14.6 [facility] Immature granulocytes/100 WBC (Bld) 0.300 % 0.0-0.9 [facility] Comment on above: IG% - Immature Granu locytes (promyelocytes, myelocytes and metamyelocytes) > 1% indicates that a LEFT SHIFT is Present. MCH (RBC) [Entitic mass] 31.4 pg 27.0-32.0 [facility] Nucleated RBC/100 WBC (Bld) [Ratio] 0 % 0- [facility] MCHC Auto (RBC) [Mass/Vol]Or dered By: Eladio Lucas on 09-22-2023 MCHC (RBC) [Mass/Vol] 31.4 g/dL 32-36 [facility] No Panel InformationOrdered By: Eladio Lucas on 09-22-2023 Estimated Creatinine Clearance Calc 18.02 ml/min [facility] Estimated GFR (MDRD) Amer 29 mL/min >60 [facility] Comment on above: GFR Calc Estimated GFR (MDRD) Non-Af Amer 24 mL/min >60 [facility] Comment on above: Non- GFR Calc 31.4 pg 27.0-32.0 [facility] 15.6 % 11.6-14.6 [facility] 57.0 fl 35.1-43.9 [facility] 0.300 % 0.0-0.9 [facility] 0 % 0-5 [facility] 24 mL/min >60 [facility] 29 mL/min >60 [facility] 18.02 ml/min [facility] 26.5 RATIO 09-16 [facility] 27.0 mmol/L 21.0-32.0 [facility] Platelets bldOrdered By: Kirby duckworthshanti Lance on 09-22-2023 Platelets (Bld) [#/Vol] 132 10*3/uL 150-450 [facility] Serum or plasma calcium aubree urement (mass/volume)Ordered By: Eladio Lucas on 09-22-2023 Calcium [Mass/Vol] 9.0 mg/dL 8.5-10.1 [facility] Serum or plasma creatinine m easurement (mass/volume)Ordered By: Eladio Lucas on 09-22-2023 Creatinine [Mass/Vol] 2.75 mg/dL 0.70-1.30 [facility] Comment on above: The validity of the calculated GFR & GFRAA in patients over 70 years has not been determined. Clinical correlation is essential. Serum or plasma urea nitroge n measurement (mass/volume)Ordered By: Eladio Lucas on 09-22-2023 Urea nitrogen [Mass/Vol] 73 mg/dL 7-18 [facility] Thin prep Papanicolaou smear with manual screeningOrdered By: Eladio Lucas on 09-22-2023 Thin prep Papanicolaou smear with manual screening 5 5-15 [facility] Basophil percentageOrdered B y: Patricia Alcantara on 09-17-2023 Basophil percentage 7.1 g/dL 6.4-8.2 [facility] Basophil percentage 0.70 mg/dL 0.20-1.00 [facility] Bilirubin [Mass/Vol] 0.70 mg/dL 0.20-1.00 [facility] Comment on above: For patients on eltr ombopag therapy, use of Dimension [place] TBIL is not recommended. Protein [Mass/Vol] 7.1 g/dL 6.4-8.2 [facility] Laboratory - Chemistry and C hemistry - challengeOrdered By: Patricia Alcantara on 09-17-2023 ALP [Catalytic activity/Vol] 173 U/L 45-117 [facility] ALT [Catalytic activity/Vol] 17 U/L 16-61 [facility] Globulin (S) [Mass/Vol] 4.3 g/dL 2.2-4.2 [facility] No Panel InformationOrdered By: Patricia Alcantara on 09-17-2023 4.3 g/dL 2.2-4.2 [facility] 173 U/L 45-117 [facility] 17 U/L 16-61 [facility] Serum or plasma albumin aubree urement (mass/volume)Ordered By: Patricia Quinton on 09-17-2023 Albumin [Mass/Vol] 2.8 g/dL 3.2-5.0 [facility] Serum or plasma albumin/glob ulin mass ratioOrdered By: Patricia White on 09-17-2023 Albumin/Globulin [Mass ratio] 0.7 {ratio} 0.9-2.4 [facility] Thin prep Papanicolaou smear with manual screeningOrdered By: Patricia White on 09-17-2023 Thin prep Papanicolaou smear with manual screening 13 U/L 15-37 [facility] Absolute lymphocyte countOrd ered By: Cesar Medina on 09-16-2023 Lymphocytes Auto (Unsp spec) [#/Vol] 1.34 10*3/uL 0.83-4.51 [facility] Basophil percentageOrdered B y: Cesar Medina on 09-16-2023 Basophil percentage 131 mg/dL 74-106 [facility] Basophil percentage 141 mmol/L 136-145 [facility] Basophil percentage 4.8 mmol/L 3.5-5.1 [facility] Basophil percentage 112 mmol/L 98-107 [facility] Basophils (Bld) [#/Vol] 7.1 10*3/uL 4.4-11.0 [facility] Basophils (Bld) [#/Vol] 4.8 10*3/uL 2.0-7.7 [facility] Basophils/100 WBC (Bld) 68.1 % 47-70 [facility] Basophils/100 WBC (Bld) 3.7 % 0-5 [facility] Basophils/100 WBC (Bld) 0.4 % 0-1 [facility] Blood erythrocytes count (nu mber/volume)Ordered By: Cesar Medina on 09-16-2023 RBC (Bld) [#/Vol] 3.16 10*6/uL 4.6-6.2 [facility] Blood hemoglobin measurement (mass/volume)Ordered By: Cesar Medina on 09-16-2023 Hemoglobin (Bld) [Mass/Vol] 10.1 g/dL 13.0-16.5 [facility] Blood lymphocytes/100 leukoc ytesOrdered By: Cesar Medina on 09-16-2023 Lymphocytes/100 WBC (Bld) 19.0 % 19-41 [facility] Blood monocytes/100 leukocyt esOrdered By: Cesar Medina on 09-16-2023 Monocytes/100 WBC (Bld) 8.1 % 0-10 [facility] Blood platelet mean volumeOr dered By: Cesar Medina on 09-16-2023 Platelet mean volume (Bld) [Entitic vol] 11.2 fL 6.2-12.0 [facility] Determination of erythrocyte mean corpuscular volume (MCV)Ordered By: Cesar Medina on 09-16-2023 MCV (RBC) [Entitic vol] 101.9 fL 80-94 [facility] Hematocrit Auto (Bld) [Volum e fraction]Ordered By: Cesar Medina on 09-16-2023 Hematocrit (Bld) [Volume fraction] 32.2 % 40-54 [facility] Laboratory - Chemistry and C hemistry - challengeOrdered By: Patricia Alcantara on 09-16-2023 Magnesium [Mass/Vol] 2.0 mg/dL 1.6-2.6 [facility] Laboratory - Chemistry and C hemistry - challengeOrdered By: Cesar Medina on 09-16-2023 Natriuretic peptide B (Bld) [Mass/Vol] 179.0 pg/mL 0-100 [facility] Laboratory - Microbiology an d Antimicrobial susceptibilityOrdered By: Patricia Alcantara on 09-16-2023 SARS-CoV-2 (COVID-19) RNA ELIANE+probe Ql (Unsp spec) [facility] MCHC Auto (RBC) [Mass/Vol]Or dered By: Cesar Medina on 09-16-2023 MCHC (RBC) [Mass/Vol] 31.4 g/dL 32-36 [facility] No Panel InformationOrdered By: Patricia Alcantara on 09-16-2023 Troponin I High Sensitivity 45 pg/mL 3.0-78.0 [facility] Comment on above: Please Note: New Meghana t Units and Gender Specific Reference Ranges. For more information see Policy Stat Procedure Butler High Sensitivity Troponin (TNIH) and attachments. 45 pg/mL 3.0-78.0 [facility] 2.0 mg/dL 1.6-2.6 [facility] No Panel InformationOrdered By: Cesar Medina on 09-16-2023 46 pg/mL 3.0-78.0 [facility] 32.0 pg 27.0-32.0 [facility] 16.4 % 11.6-14.6 [facility] 60.7 fl 35.1-43.9 [facility] 0.700 % 0.0-0.9 [facility] 0 % 0-5 [facility] 32 mL/min >60 [facility] 39 mL/min >60 [facility] 23.37 ml/min [facility] 25.0 RATIO 09-16 [facility] 22.0 mmol/L 21.0-32.0 [facility] 179.0 pg/mL 0-100 [facility] Platelets bldOrdered By: Jodie Medina on 09-16-2023 Platelets (Bld) [#/Vol] 130 10*3/uL 150-450 [facility] Respiratory pathogens detect ion panel by molecular detection methodOrdered By: Patricia Alcantara on 09-16-2023 Respiratory pathogens DNA and RNA panel ELIANE+probe (Resp) [facility] Serum or plasma calcium aubree urement (mass/volume)Ordered By: Cesar Medina on 09-16-2023 Calcium [Mass/Vol] 8.8 mg/dL 8.5-10.1 [facility] Serum or plasma creatinine m easurement (mass/volume)Ordered By: Cesar Medina on 09-16-2023 Creatinine [Mass/Vol] 2.12 mg/dL 0.70-1.30 [facility] Serum or plasma urea nitroge n measurement (mass/volume)Ordered By: Cesar Medina on 09-16-2023 Urea nitrogen [Mass/Vol] 53 mg/dL 7-18 [facility] Serum procalcitonin measurem entOrdered By: Patricia Alcantara on 09-16-2023 Procalcitonin [Mass/Vol] 0.08 ng/mL 0.00-0.09 [facility] Comment on above: A procalcitonin (PCT ) [...] Papanicolaou smear with manual screening 7 5-15 [facility] Absolute lymphocyte countOrd ered By: James Camarillo on 08-22-2023 Lymphocytes Auto (Unsp spec) [#/Vol] 1.57 10*3/uL 0.83-4.51 [facility] Basophil percentageOrdered B y: James Camarillo on 08-22-2023 Basophil percentage 131 mg/dL 74-106 [facility] Basophil percentage 139 mmol/L 136-145 [facility] Basophil percentage 4.7 mmol/L 3.5-5.1 [facility] Basophil percentage 112 mmol/L 98-107 [facility] Basophils (Bld) [#/Vol] 9.5 10*3/uL 4.4-11.0 [facility] Basophils (Bld) [#/Vol] 7.2 10*3/uL 2.0-7.7 [facility] Basophils/100 WBC (Bld) 75.8 % 47-70 [facility] Basophils/100 WBC (Bld) 1.4 % 0-5 [facility] Basophils/100 WBC (Bld) 0.4 % 0-1 [facility] Blood erythrocytes count (nu mber/volume)Ordered By: James Camarillo on 08-22-2023 RBC (Bld) [#/Vol] 3.28 10*6/uL 4.6-6.2 [facility] Blood hemoglobin measurement (mass/volume)Ordered By: James Camarillo on 08-22-2023 Hemoglobin (Bld) [Mass/Vol] 10.2 g/dL 13.0-16.5 [facility] Blood lymphocytes/100 leukoc ytesOrdered By: James Camarillo on 08-22-2023 Lymphocytes/100 WBC (Bld) 16.5 % 19-41 [facility] Blood monocytes/100 leukocyt esOrdered By: James Camarillo on 08-22-2023 Monocytes/100 WBC (Bld) 5.6 % 0-10 [facility] Blood platelet mean volumeOr dered By: James Camarillo on 08-22-2023 Platelet mean volume (Bld) [Entitic vol] 10.8 fL 6.2-12.0 [facility] COVID-19 virus antigen assay Ordered By: Mikey Macias on 08-22-2023 SARS-CoV-2 (COVID-19) Ag IA.rapid Ql (Resp) [facility] SARS-CoV-2 (COVID-19) Ag IA.rapid Ql (Resp) [facility] Determination of erythrocyte mean corpuscular volume (MCV)Ordered By: James Camarillo on 08-22-2023 MCV (RBC) [Entitic vol] 98.2 fL 80-94 [facility] Glucose Glucometer (dC) [M ass/Vol]Ordered By: Mikey Macias on 08-22-2023 Glucose [Mass/Vol] 170 mg/dL 74-106 [facility] Hematocrit Auto (Bld) [Volum e fraction]Ordered By: James Camarillo on 08-22-2023 Hematocrit (Bld) [Volume fraction] 32.2 % 40-54 [facility] MCHC Auto (RBC) [Mass/Vol]Or dered By: James Camarillo on 08-22-2023 MCHC (RBC) [Mass/Vol] 31.7 g/dL 32-36 [facility] No Panel InformationOrdered By: James Camarillo on 08-22-2023 31.1 pg 27.0-32.0 [facility] 14.2 % 11.6-14.6 [facility] 51.4 fl 35.1-43.9 [facility] 0.300 % 0.0-0.9 [facility] 0 % 0-5 [facility] 26 mL/min >60 [facility] 32 mL/min >60 [facility] [facility] 19.74 ml/min [facility] 18.3 RATIO 10-20 [facility] 21.0 mmol/L 21.0-32.0 [facility] Platelets bldOrdered By: Juan Camarillo on 08-22-2023 Platelets (Bld) [#/Vol] 137 10*3/uL 150-450 [facility] Serum or plasma calcium aubree urement (mass/volume)Ordered By: James Camarillo on 08-22-2023 Calcium [Mass/Vol] 8.7 mg/dL 8.5-10.1 [facility] Serum or plasma creatinine m easurement (mass/volume)Ordered By: James Camarillo on 08-22-2023 Creatinine [Mass/Vol] 2.51 mg/dL 0.70-1.30 [facility] Serum or plasma urea nitroge n measurement (mass/volume)Ordered By: James Camarillo on 08-22-2023 Urea nitrogen [Mass/Vol] 46 mg/dL 7-18 [facility] Thin prep Papanicolaou smear with manual screeningOrdered By: James Camarillo on 08-22-2023 Thin prep Papanicolaou smear with manual screening 6 5-15 [facility] Basophil percentageOrdered B y: James Camarillo on 08-21-2023 Basophil percentage 2.6 mg/dL 2.5-4.9 [facility] No Panel InformationOrdered By: James Camarillo on 08-21-2023 1.9 mg/dL 1.6-2.6 [facility] No Panel InformationOrdered By: James Camarillo on 08-20-2023 96.3 Seconds 24.1-36.2 [facility] Basophil percentageOrdered B y: Patricia White on 08-19-2023 Basophil percentage 6.9 g/dL 6.4-8.2 [facility] Basophil percentage 0.50 mg/dL 0.20-1.00 [facility] No Panel InformationOrdered By: Patricia White on 08-19-2023 4.5 g/dL 2.2-4.2 [facility] 110 U/L 45-117 [facility] 15 U/L 16-61 [facility] 5.80 uIU/mL 0.358-3.74 [facility] Serum or plasma albumin aubree urement (mass/volume)Ordered By: Patricia Alcantara on 08-19-2023 Albumin [Mass/Vol] 2.4 g/dL 3.2-5.0 [facility] Serum or plasma albumin/glob ulin mass ratioOrdered By: Patricia Quinton on 08-19-2023 Albumin/Globulin [Mass ratio] 0.5 {ratio} 0.9-2.4 [facility] Thin prep Papanicolaou smear with manual screeningOrdered By: Patricia Alcantara on 08-19-2023 Thin prep Papanicolaou smear with manual screening 17 U/L 15-37 [facility] Absolute lymphocyte countOrd ered By: Farhan Aviless on 08-18-2023 Lymphocytes Auto (Unsp spec) [#/Vol] 1.58 10*3/uL 0.83-4.51 [facility] Absolute lymphocyte countOrd ered By: Jeremy Magallanes on 08-18-2023 Lymphocytes Auto (Unsp spec) [#/Vol] 1.56 10*3/uL 0.83-4.51 [facility] Basophil percentageOrdered B y: Patricia Alcantara on 08-18-2023 Ammonia (P) [Moles/Vol] 14.0 umol/L - [facility] Basophil percentage 14.0 umol/L 11-32 [facility] Basophil percentageOrdered B y: Farhan Bonds on 08-18-2023 Basophil percentage 151 mg/dL 74-106 [facility] Basophil percentage 139 mmol/L 136-145 [facility] Basophil percentage 4.5 mmol/L 3.5-5.1 [facility] Basophil percentage 107 mmol/L 98-107 [facility] Basophils (Bld) [#/Vol] 9.0 10*3/uL 4.4-11.0 [facility] Basophils (Bld) [#/Vol] 6.6 10*3/uL 2.0-7.7 [facility] Basophils/100 WBC (Bld) 73.4 % 47-70 [facility] Basophils/100 WBC (Bld) 1.8 % 0-5 [facility] Basophils/100 WBC (Bld) 0.4 % 0-1 [facility] Chloride [Moles/Vol] 107 mmol/L 98-107 [facility] Eosinophils/100 WBC (Bld) 1.8 % 0-5 [facility] Glucose [Mass/Vol] 151 mg/dL 74-106 [facility] Comment on above: Fasting Glucose resu lt greater than or equal to 126 mg/dL suggests DIABETES MELLITUS per A.D.A. criteria. Neutrophils (Bld) [#/Vol] 6.6 10*3/uL 2.0-7.7 [facility] Neutrophils/100 WBC (Bld) 73.4 % 47-70 [facility] Potassium [Moles/Vol] 4.5 mmol/L 3.5-5.1 [facility] Sodium [Moles/Vol] 139 mmol/L 136-145 [facility] WBC (Bld) [#/Vol] 9.0 10*3/uL 4.4-11.0 [facility] Basophil percentageOrdered B y: Jeremy Magallanes on 08-18-2023 Basophil percentage 144 mg/dL 74-106 [facility] Basophil percentage 7.1 g/dL 6.4-8.2 [facility] Basophil percentage 0.70 mg/dL 0.20-1.00 [facility] Basophil percentage 139 mmol/L 136-145 [facility] Basophil percentage 4.2 mmol/L 3.5-5.1 [facility] Basophil percentage 106 mmol/L 98-107 [facility] Basophils (Bld) [#/Vol] 9.1 10*3/uL 4.4-11.0 [facility] Basophils (Bld) [#/Vol] 6.8 10*3/uL 2.0-7.7 [facility] Basophils/100 WBC (Bld) 74.4 % 47-70 [facility] Basophils/100 WBC (Bld) 1.9 % 0-5 [facility] Basophils/100 WBC (Bld) 0.4 % 0-1 [facility] Bilirubin [Mass/Vol] 0.70 mg/dL 0.20-1.00 [facility] Comment on above: For patients on eltr ombopag therapy, use of Dimension [place] TBIL is not recommended. Chloride [Moles/Vol] 106 mmol/L 98-107 [facility] Eosinophils/100 WBC (Bld) 1.9 % 0-5 [facility] Glucose [Mass/Vol] 144 mg/dL 74-106 [facility] Comment on above: Fasting Glucose resu lt greater than or equal to 126 mg/dL suggests DIABETES MELLITUS per A.D.A. criteria. Neutrophils (Bld) [#/Vol] 6.8 10*3/uL 2.0-7.7 [facility] Neutrophils/100 WBC (Bld) 74.4 % 47-70 [facility] Potassium [Moles/Vol] 4.2 mmol/L 3.5-5.1 [facility] Protein [Mass/Vol] 7.1 g/dL 6.4-8.2 [facility] Sodium [Moles/Vol] 139 mmol/L 136-145 [facility] WBC (Bld) [#/Vol] 9.1 10*3/uL 4.4-11.0 [facility] Blood erythrocytes count (nu mber/volume)Ordered By: Farhan Bonds on 08-18-2023 RBC (Bld) [#/Vol] 3.47 10*6/uL 4.6-6.2 [facility] Blood erythrocytes count (nu mber/volume)Ordered By: Jeremy Magallanes on 08-18-2023 RBC (Bld) [#/Vol] 3.42 10*6/uL 4.6-6.2 [facility] Blood hemoglobin measurement (mass/volume)Ordered By: Farhan Bonds on 08-18-2023 Hemoglobin (Bld) [Mass/Vol] 10.8 g/dL 13.0-16.5 [facility] Blood hemoglobin measurement (mass/volume)Ordered By: Jeremy Magallanes on 08-18-2023 Hemoglobin (Bld) [Mass/Vol] 10.9 g/dL 13.0-16.5 [facility] Blood lymphocytes/100 leukoc ytesOrdered By: Farhan Bonds on 08-18-2023 Lymphocytes/100 WBC (Bld) 17.6 % - [facility] Blood lymphocytes/100 leukoc ytesOrdered By: Jeremy Magallanes on 08-18-2023 Lymphocytes/100 WBC (Bld) 17.1 % [facility] Blood monocytes/100 leukocyt esOrdered By: Farhan Bonds on 08-18-2023 Monocytes/100 WBC (Bld) 6.4 % 0-10 [facility] Blood monocytes/100 leukocyt esOrdered By: Jeremy Magallanes on 08-18-2023 Monocytes/100 WBC (Bld) 5.9 % 0-10 [facility] Blood platelet mean volumeOr dered By: Farhan Bonds on 08-18-2023 Platelet mean volume (Bld) [Entitic vol] 11.3 fL 6.2-12.0 [facility] Blood platelet mean volumeOr dered By: Jeremy Magallanes on 08-18-2023 Platelet mean volume (Bld) [Entitic vol] 10.5 fL 6.2-12.0 [facility] Determination of erythrocyte mean corpuscular volume (MCV)Ordered By: Farhan Bonds on 08-18-2023 MCV (RBC) [Entitic vol] 98.8 fL 80-94 [facility] Determination of erythrocyte mean corpuscular volume (MCV)Ordered By: Jeremy Magallanes on 08-18-2023 MCV (RBC) [Entitic vol] 98.0 fL 80-94 [facility] Glucose Glucometer (dC) [M ass/Vol]Ordered By: Jeremy Magallanes on 08-18-2023 Glucose [Mass/Vol] 147 mg/dL 74-106 [facility] Comment on above: MANAGEMENT OF PATIEN T CARE PER NURSING PROTOCOL HCO3 (BldA) [Moles/Vol]Order ed By: Patricia Alcantara on 08-18-2023 HCO3 (Bld) [Moles/Vol] 26 mmol/L 22-[address] [facility] Hematocrit Auto (Bld) [Volum e fraction]Ordered By: Farhan Bonds on 08-18-2023 Hematocrit (Bld) [Volume fraction] 34.3 % 40-54 [facility] Hematocrit Auto (Bld) [Volum e fraction]Ordered By: Jeremy Magallanes on 08-18-2023 Hematocrit (Bld) [Volume fraction] 33.5 % 40-54 [facility] INR in Blood by Coagulation assayOrdered By: Patricia Alcantara on 08-18-2023 INR Coag (Bld) [Relative time] 1.6 {INR} [facility] Laboratory - Chemistry and C hemistry - challengeOrdered By: Patricia Alcantara on 08-18-2023 Magnesium [Mass/Vol] 1.9 mg/dL 1.6-2.6 [facility] Laboratory - Chemistry and C hemistry - challengeOrdered By: Farhan Bonds on 08-18-2023 CO2 [Moles/Vol] 29.0 mmol/L 21.0-32.0 [facility] Urea nitrogen/Creatinine [Mass ratio] 19.7 mg/mg 10- [facility] Laboratory - Chemistry and C hemistry - challengeOrdered By: Jeremy Magallanes on 08-18-2023 ALP [Catalytic activity/Vol] 130 U/L 45-117 [facility] ALT [Catalytic activity/Vol] 18 U/L 16-61 [facility] CO2 [Moles/Vol] 27.0 mmol/L 21.0-32.0 [facility] Globulin (S) [Mass/Vol] 4.1 g/dL 2.2-4.2 [facility] Urea nitrogen/Creatinine [Mass ratio] 19.5 mg/mg 10- [facility] Laboratory - CoagulationOrde red By: Patricia Alcantara on 08-18-2023 aPTT Coag (Bld) [Time] 40.0 s 24.1-36.[address] [facility] PT Coag (PPP) [Time] 18.9 s 11.7-14.9 [facility] Laboratory - Hematology and Cell countsOrdered By: Farhan Bonds on 08-18-2023 Erythrocyte distribution width (RBC) [Entitic vol] 51.6 fL 35.1-43.9 [facility] Erythrocyte distribution width (RBC) [Ratio] 14.3 % 11.6-14.6 [facility] Immature granulocytes/100 WBC (Bld) 0.400 % 0.0-0.9 [facility] Comment on above: IG% - Immature Granu locytes (promyelocytes, myelocytes and metamyelocytes) > 1% indicates that a LEFT SHIFT is Present. MCH (RBC) [Entitic mass] 31.1 pg 27.0-32.0 [facility] Nucleated RBC/100 WBC (Bld) [Ratio] 0 % 0-5 [facility] Laboratory - Hematology and Cell countsOrdered By: Jeremy Magallanes on 08-18-2023 Erythrocyte distribution width (RBC) [Entitic vol] 50.4 fL 35.1-43.9 [facility] Erythrocyte distribution width (RBC) [Ratio] 14.0 % 11.6-14.6 [facility] Immature granulocytes/100 WBC (Bld) 0.300 % 0.0-0.9 [facility] Comment on above: IG% - Immature Granu locytes (promyelocytes, myelocytes and metamyelocytes) > 1% indicates that a LEFT SHIFT is Present. MCH (RBC) [Entitic mass] 31.9 pg 27.0-32.0 [facility] Nucleated RBC/100 WBC (Bld) [Ratio] 0 % 0-5 [facility] MCHC Auto (RBC) [Mass/Vol]Or dered By: Farhan Bonds on 08-18-2023 MCHC (RBC) [Mass/Vol] 31.5 g/dL 32-36 [facility] MCHC Auto (RBC) [Mass/Vol]Or dered By: Jeremy Magallanes on 08-18-2023 MCHC (RBC) [Mass/Vol] 32.5 g/dL 32-36 [facility] No Panel InformationOrdered By: Patricia Alcantara on 08-18-2023 AYE [facility] Not entered [facility] Cannula [facility] 4.0 [facility] 47.0 mmHg 41-51 [facility] 1 mmol/L -1.0-3.5 [facility] 52 % 50-70 [facility] 28 mmol/L 23-33 [facility] 18.9 SECONDS 11.7-14.9 [facility] 40.0 Seconds 24.1-36.2 [facility] 1.9 mg/dL 1.6-2.6 [facility] No Panel InformationOrdered By: Farhan Bonds on 08-18-2023 Estimated Creatinine Clearance Calc 22.22 ml/min [facility] Estimated GFR (MDRD) Amer 36 mL/min >60 [facility] Comment on above: GFR Calc Estimated GFR (MDRD) Non-Af Amer 30 mL/min >60 [facility] Comment on above: Non- GFR Calc Troponin I High Sensitivity 78 pg/mL 3.0-78.0 [facility] Comment on above: Please Note: New Meghana t Units and Gender Specific Reference Ranges. For more information see Policy Stat Procedure Butler High Sensitivity Troponin (TNIH) and attachments. 31.1 pg 27.0-32.0 [facility] 14.3 % 11.6-14.6 [facility] 51.6 fl 35.1-43.9 [facility] 0.400 % 0.0-0.9 [facility] 0 % 0-5 [facility] 30 mL/min >60 [facility] 36 mL/min >60 [facility] 22.22 ml/min [facility] 19.7 RATIO 10-20 [facility] 78 pg/mL 3.0-78.0 [facility] 29.0 mmol/L 21.0-32.0 [facility] No Panel InformationOrdered By: Jeremy Magallanes on 08-18-2023 Estimated Creatinine Clearance Calc 22.52 ml/min [facility] Estimated GFR (MDRD) Amer 37 mL/min >60 [facility] Comment on above: GFR Calc Estimated GFR (MDRD) Non-Af Amer 31 mL/min >60 [facility] Comment on above: Non- GFR Calc 31.9 pg 27.0-32.0 [facility] 14.0 % 11.6-14.6 [facility] 50.4 fl 35.1-43.9 [facility] 0.300 % 0.0-0.9 [facility] 0 % 0-5 [facility] 31 mL/min >60 [facility] 37 mL/min >60 [facility] 22.52 ml/min [facility] 19.5 RATIO 10-20 [facility] 4.1 g/dL 2.2-4.2 [facility] 130 U/L 45-117 [facility] 18 U/L 16-61 [facility] 27.0 mmol/L 21.0-32.0 [facility] PO2 venousOrdered By: Patricia Alcantara on 08-18-2023 Oxygen (BldV) [Partial pressure] 29 mm[Hg] 25-40 [facility] Platelets bldOrdered By: Mariusz Bonds on 08-18-2023 Platelets (Bld) [#/Vol] 153 10*3/uL 150-450 [facility] Platelets bldOrdered By: Jeremy Magallanes on 08-18-2023 Platelets (Bld) [#/Vol] 147 10*3/uL 150-450 [facility] Serum or plasma albumin aubree urement (mass/volume)Ordered By: Jeremy Magallanes on 08-18-2023 Albumin [Mass/Vol] 3.0 g/dL 3.2-5.0 [facility] Serum or plasma albumin/glob ulin mass ratioOrdered By: Jeremy Magallanes on 08-18-2023 Albumin/Globulin [Mass ratio] 0.7 {ratio} 0.9-2.4 [facility] Serum or plasma calcium aubree urement (mass/volume)Ordered By: Farhan Bonds on 08-18-2023 Calcium [Mass/Vol] 9.6 mg/dL 8.5-10.1 [facility] Serum or plasma calcium aubree urement (mass/volume)Ordered By: Jeremy Magallanes on 08-18-2023 Calcium [Mass/Vol] 9.4 mg/dL 8.5-10.1 [facility] Serum or plasma creatinine m easurement (mass/volume)Ordered By: Farhan Bonds on 08-18-2023 Creatinine [Mass/Vol] 2.23 mg/dL 0.70-1.30 [facility] Comment on above: The validity of the calculated GFR & GFRAA in patients over 70 years has not been determined. Clinical correlation is essential. Serum or plasma creatinine m easurement (mass/volume)Ordered By: Jeremy Magallanes on 08-18-2023 Creatinine [Mass/Vol] 2.20 mg/dL 0.70-1.30 [facility] Comment on above: The validity of the calculated GFR & GFRAA in patients over 70 years has not been determined. Clinical correlation is essential. Serum or plasma urea nitroge n measurement (mass/volume)Ordered By: Farhan Bonds on 08-18-2023 Urea nitrogen [Mass/Vol] 44 mg/dL 06-14 [facility] Serum or plasma urea nitroge n measurement (mass/volume)Ordered By: Jeremy Magallanes on 08-18-2023 Urea nitrogen [Mass/Vol] 43 mg/dL 06-14 [facility] Thin prep Papanicolaou smear with manual screeningOrdered By: Farhan Bonds on 08-18-2023 Thin prep Papanicolaou smear with manual screening 3 - [facility] Thin prep Papanicolaou smear with manual screeningOrdered By: Jeremy Magallanes on 08-18-2023 Thin prep Papanicolaou smear with manual screening 18 U/L 15- [facility] Thin prep Papanicolaou smear with manual screening 6 04-11 [facility] pH measurementOrdered By: Dia Alcantara on 08-18-2023 pH (Unsp spec) 7.36 [pH] 7.32-7.42 [facility] COVID-19 virus antigen assay Ordered By: Jeremy Magallanes on 08-17-2023 SARS-CoV-2 (COVID-19) Ag IA.rapid Ql (Resp) [facility] SARS-CoV-2 (COVID-19) Ag IA.rapid Ql (Resp) [facility] Glucose Glucometer (BldC) [M ass/Vol]Ordered By: Jeremy Magallanes on 08-11-2023 Glucose [Mass/Vol] 105 mg/dL 74-106 [facility] Comment on above: MANAGEMENT OF PATIEN T CARE PER NURSING PROTOCOL Absolute lymphocyte countOrd ered By: Jeremy Magallanes on 08-10-2023 Lymphocytes Auto (Unsp spec) [#/Vol] 1.95 10*3/uL 0.83-4.51 [facility] Basophil percentageOrdered B y: Jeremy Magallanes on 08-10-2023 Basophils/100 WBC (Bld) 0.5 % 0-1 [facility] Chloride [Moles/Vol] 106 mmol/L 98-107 [facility] Eosinophils/100 WBC (Bld) 2.2 % 0-5 [facility] Glucose [Mass/Vol] 188 mg/dL 74-106 [facility] Comment on above: Fasting Glucose resu lt greater than or equal to 126 mg/dL suggests DIABETES MELLITUS per A.D.A. criteria. Neutrophils (Bld) [#/Vol] 6.0 10*3/uL 2.0-7.7 [facility] Neutrophils/100 WBC (Bld) 69.3 % 47-70 [facility] Potassium [Moles/Vol] 4.1 mmol/L 3.5-5.1 [facility] Sodium [Moles/Vol] 138 mmol/L 136-145 [facility] WBC (Bld) [#/Vol] 8.7 10*3/uL 4.4-11.0 [facility] Blood erythrocytes count (nu mber/volume)Ordered By: Jeremy Magallanes on 08-10-2023 RBC (Bld) [#/Vol] 3.49 10*6/uL 4.6-6.2 [facility] Blood hemoglobin measurement (mass/volume)Ordered By: Jeremy Magallanes on 08-10-2023 Hemoglobin (Bld) [Mass/Vol] 10.9 g/dL 13.0-16.5 [facility] Blood lymphocytes/100 leukoc ytesOrdered By: Jeremy Magallanes on 08-10-2023 Lymphocytes/100 WBC (Bld) 22.5 % 19-41 [facility] Blood monocytes/100 leukocyt esOrdered By: Jeremy Magallanes on 08-10-2023 Monocytes/100 WBC (Bld) 5.2 % 0-10 [facility] Blood platelet mean volumeOr dered By: Jeremy Magallanes on 08-10-2023 Platelet mean volume (Bld) [Entitic vol] 10.6 fL 6.2-12.0 [facility] Determination of erythrocyte mean corpuscular volume (MCV)Ordered By: Jeremy Magallanes on 08-10-2023 MCV (RBC) [Entitic vol] 99.7 fL 80-94 [facility] Hematocrit Auto (Bld) [Volum e fraction]Ordered By: Jeremy Magallanes on 08-10-2023 Hematocrit (Bld) [Volume fraction] 34.8 % 40-54 [facility] Laboratory - Chemistry and C hemistry - challengeOrdered By: Jeremy Magallanes on 08-10-2023 CO2 [Moles/Vol] 26.0 mmol/L 21.0-32.0 [facility] Urea nitrogen/Creatinine [Mass ratio] 22.1 mg/mg 10-20 [facility] Laboratory - Hematology and Cell countsOrdered By: Jeremy Magallanes on 08-10-2023 Erythrocyte distribution width (RBC) [Entitic vol] 51.8 fL 35.1-43.9 [facility] Erythrocyte distribution width (RBC) [Ratio] 14.4 % 11.6-14.6 [facility] Immature granulocytes/100 WBC (Bld) 0.300 % 0.0-0.9 [facility] Comment on above: IG% - Immature Granu locytes (promyelocytes, myelocytes and metamyelocytes) > 1% indicates that a LEFT SHIFT is Present. MCH (RBC) [Entitic mass] 31.2 pg 27.0-32.0 [facility] Nucleated RBC/100 WBC (Bld) [Ratio] 0 % 0-5 [facility] MCHC Auto (RBC) [Mass/Vol]Or dered By: Jeremy Magallanes on 08-10-2023 MCHC (RBC) [Mass/Vol] 31.3 g/dL 32-36 [facility] No Panel InformationOrdered By: Jeremy Magallanes on 08-10-2023 Estimated Creatinine Clearance Calc 21.08 ml/min [facility] Estimated GFR (MDRD) Amer 34 mL/min >60 [facility] Comment on above: GFR Calc Estimated GFR (MDRD) Non-Af Amer 28 mL/min >60 [facility] Comment on above: Non- GFR Calc Platelets bldOrdered By: Jeremy Magallanes on 08-10-2023 Platelets (Bld) [#/Vol] 136 10*3/uL 150-450 [facility] Serum or plasma calcium aubree urement (mass/volume)Ordered By: Jeremy Magallanes on 08-10-2023 Calcium [Mass/Vol] 9.7 mg/dL 8.5-10.1 [facility] Serum or plasma creatinine m easurement (mass/volume)Ordered By: Jeremy Magallanes on 08-10-2023 Creatinine [Mass/Vol] 2.35 mg/dL 0.70-1.30 [facility] Comment on above: The validity of the calculated GFR & GFRAA in patients over 70 years has not been determined. Clinical correlation is essential. Serum or plasma urea nitroge n measurement (mass/volume)Ordered By: Jeremy Magallanes on 08-10-2023 Urea nitrogen [Mass/Vol] 52 mg/dL 7-18 [facility] Thin prep Papanicolaou smear with manual screeningOrdered By: Jeremy Magallanes on 08-10-2023 Thin prep Papanicolaou smear with manual screening 6 5-15 [facility] COVID-19 virus antigen assay Ordered By: Jeremy Magallanes on 08-09-2023 SARS-CoV-2 (COVID-19) Ag IA.rapid Ql (Resp) [facility] Glucose Glucometer (dC) [M ass/Vol]Ordered By: Jeremy Magallanes on 07-27-2023 Glucose [Mass/Vol] 83 mg/dL 74-106 [facility] Comment on above: MANAGEMENT OF PATIEN T CARE PER NURSING PROTOCOL Absolute lymphocyte countOrd ered By: Jeremy Magallanes on 07-25-2023 Lymphocytes Auto (Unsp spec) [#/Vol] 1.42 10*3/uL 0.83-4.51 [facility] Basophil percentageOrdered B y: Jeremy Magallanes on 07-25-2023 Basophils/100 WBC (Bld) 0.5 % 0-1 [facility] Chloride [Moles/Vol] 114 mmol/L 98-107 [facility] Eosinophils/100 WBC (Bld) 4.1 % 0-5 [facility] Glucose [Mass/Vol] 92 mg/dL 74-106 [facility] Neutrophils (Bld) [#/Vol] 5.4 10*3/uL 2.0-7.7 [facility] Neutrophils/100 WBC (Bld) 69.0 % 47-70 [facility] Potassium [Moles/Vol] 4.3 mmol/L 3.5-5.1 [facility] Sodium [Moles/Vol] 142 mmol/L 136-145 [facility] WBC (Bld) [#/Vol] 7.8 10*3/uL 4.4-11.0 [facility] Blood erythrocytes count (nu mber/volume)Ordered By: Jeremy Magallanes on 07-25-2023 RBC (Bld) [#/Vol] 2.97 10*6/uL 4.6-6.2 [facility] Blood hemoglobin measurement (mass/volume)Ordered By: [facility] on 07-25-2023 Hemoglobin (Bld) [Mass/Vol] 9.6 g/dL 13.0-16.5 [facility] Blood lymphocytes/100 leukoc ytesOrdered By: [facility] on 07-25-2023 Lymphocytes/100 WBC (Bld) 18.2 % 19-41 [facility] Blood monocytes/100 leukocyt esOrdered By: [facility] on 07-25-2023 Monocytes/100 WBC (Bld) 7.8 % 0-10 [facility] Blood platelet mean volumeOr dered By: [facility] on 07-25-2023 Platelet mean volume (Bld) [Entitic vol] 10.7 fL 6.2-12.0 [facility] Determination of erythrocyte mean corpuscular volume (MCV)Ordered By: [facility] on 07-25-2023 MCV (RBC) [Entitic vol] 99.0 fL 80-94 [facility] Hematocrit Auto (Bld) [Volum e fraction]Ordered By: [facility] on 07-25-2023 Hematocrit (Bld) [Volume fraction] 29.4 % 40-54 [facility] Laboratory - Chemistry and C hemistry - challengeOrdered By: [facility] 07-25-2023 CO2 [Moles/Vol] 23.0 mmol/L 21.0-32.0 [facility] Urea nitrogen/Creatinine [Mass ratio] 27.4 mg/mg 10-20 [facility] Laboratory - Hematology and Cell countsOrdered By: [facility] 07-25-2023 Erythrocyte distribution width (RBC) [Entitic vol] 55.1 fL 35.1-43.9 [facility] Erythrocyte distribution width (RBC) [Ratio] 15.3 % 11.6-14.6 [facility] Immature granulocytes/100 WBC (Bld) 0.400 % 0.0-0.9 [facility] Comment on above: IG% - Immature Granu locytes (promyelocytes, myelocytes and metamyelocytes) > 1% indicates that a LEFT SHIFT is Present. MCH (RBC) [Entitic mass] 32.3 pg 27.0-32.0 [facility] Nucleated RBC/100 [facility] (Bld) [[facility]] [facility] [Mass/Vol]Or dered By: Jeremy Magallanes on 07-25-2023 MCHC (RBC) [Mass/Vol] 32.7 g/dL 32-36 [facility] Comment on above: Delta: 31.1 on 07/21-1814 No Panel InformationOrdered By: Jeremy Magallanes on 07-25-2023 Estimated Creatinine Clearance Calc 20.90 ml/min [facility] Estimated GFR (MDRD) Amer 34 mL/min >60 [facility] Comment on above: GFR Calc Estimated GFR (MDRD) Non-Af Amer 28 mL/min >60 [facility] Comment on above: Non- GFR Calc Platelets bldOrdered By: Jeremy Magallanes on 07-25-2023 Platelets (Bld) [#/Vol] 135 10*3/uL 150-450 [facility] Serum or plasma calcium aubree urement (mass/volume)Ordered By: Jeremy Magallanes on 07-25-2023 Calcium [Mass/Vol] 9.1 mg/dL 8.5-10.1 [facility] Serum or plasma creatinine m easurement (mass/volume)Ordered By: Jeremy Magallanes on 07-25-2023 Creatinine [Mass/Vol] 2.37 mg/dL 0.70-1.30 [facility] [place] Comment on above: The validity of the calculated GFR & GFRAA in patients over 70 years has not been determined. Clinical correlation is essential. Serum or plasma urea nitroge n measurement (mass/volume)Ordered By: Jeremy Magallanes on 07-25-2023 Urea nitrogen [Mass/Vol] 65 mg/dL 7-18 [facility] Thin prep Papanicolaou smear with manual screeningOrdered By: Jeremy Magallanes on 07-25-2023 Thin prep Papanicolaou smear with manual screening 5 5-15 [facility] Basophil percentageOrdered B y: Jeremy Magallanes on 07-21-2023 Basophil percentage 0-5 SEEN /hpf 0-[address] [facility] Bilirubin Test strip Ql (U)O rdered By: Jeremy Magallanes on 07-21-2023 Bilirubin Ql (U) Negative Negative [facility] Culture, urineOrdered By: Jono Magallanes on 07-21-2023 Bacteria identified Cx Nom (U) Culture exhibits no growth. [facility] Bacteria identified Cx Nom (U) Culture exhibits no growth. [facility] Ketones Test strip Ql (U)Ord ered By: Jeremy Magallanes on 07-21-2023 Ketones Ql (U) Negative Negative [facility] Mucus LM Ql (Urine sed)Order ed By: Jeremy Magallanes on 07-21-2023 Mucus Ql (Urine sed) 0 SEEN /hpf [facility] [place] Nitrite Test strip Ql (U)Ord ered By: Jeremy Magallanes on 07-21-2023 Nitrite Ql (U) Negative Negative [facility] Protein Test strip Ql (U)Ord ered By: Jeremy Magallanes on 07-21-2023 Protein Ql (U) 30 mg/dl Negative [facility] Squamous epithelial cells de tection in urine sediment by light microscopyOrdered By: Jeremy Magallanes on 07-21-2023 Epithelial cells.squamous LM Ql (Urine sed) 0 SEEN /hpf 0-5 [facility] Urine blood detectionOrdered By: Jeermy Magallanes on 07-21-2023 RBC Ql (U) Negative Negative [facility] RBC Ql (U) 0 SEEN /hpf 0-5 [facility] Urine clarityOrdered By: Jeremy Magallanes on 07-21-2023 Clarity (U) Clear Clear [facility] Urine color determinationOrd ered By: Jeremy Magallanes on 07-21-2023 Color (U) Yellow Yellow [facility] Urine glucose detectionOrder ed By: Jeremy Magallanes on 07-21-2023 Glucose Ql (U) Normal mg/dl Normal [facility] Urine leukocyte esterase det ection by dipstickOrdered By: Jeremy Magallanes on 07-21-2023 Leukocyte esterase Test strip Ql (U) Negative Negative [facility] Urine pHOrdered By: Jeremy Magallanes on 07-21-2023 pH (U) 5.0 [pH] 5.0 - 8.0 [facility] Urine sediment bacteria coun t by microscopy (number/high power field)Ordered By: Jeremy Magallanes on 07-21-2023 Bacteria LM.HPF (Urine sed) [#/Area] 0 /[HPF] None Seen [facility] Urine specific gravity measu rementOrdered By: Jeremy Magallanes on 07-21-2023 Specific gravity (U) [Rel density] 1.015 1.002-1.030 [facility] Urobilinogen Auto test strip Ql (U)Ordered By: Jeremy Magallanes on 07-21-2023 Urobilinogen Ql (U) Normal mg/dl Normal [facility] [place] Laboratory - Chemistry and C hemistry - challengeOrdered By: Jeremy Magallanes on 07-12-2023 Natriuretic peptide B (Bld) [Mass/Vol] 174.5 pg/mL 0-100 [facility] No Panel InformationOrdered By: Jeremy Magallanes on 07-12-2023 174.5 pg/mL 0-100 [facility] Levetiracetam (Keppra) Level 39.0 ug/mL 10.0-40.0 [facility] Comment on above: Performed at: [address] [id number] Director: Suzy Adames MD, Phone: [phone] 39.0 ug/mL 10.0-40.0 [facility] Absolute lymphocyte countOrd ered By: Jeremy Magallanes on 07-11-2023 Lymphocytes Auto (Unsp spec) [#/Vol] 0.89 10*3/uL 0.83-4.51 [facility] Basophil percentageOrdered B y: Jeremy Magallanes on 07-11-2023 Basophil percentage 141 mg/dL 74-106 [facility] Basophil percentage 136 mmol/L 136-145 [facility] Basophil percentage 5.0 mmol/L 3.5-5.1 [facility] Basophil percentage 109 mmol/L 98-107 [facility] Basophils (Bld) [#/Vol] 9.1 10*3/uL 4.4-11.0 [facility] Basophils (Bld) [#/Vol] 7.0 10*3/uL 2.0-7.7 [facility] Basophils/100 WBC (Bld) 76.7 % 47-70 [facility] Basophils/100 WBC (Bld) 3.2 % 0-5 [facility] Basophils/100 WBC (Bld) 0.4 % 0-1 [facility] Blood erythrocytes count (nu mber/volume)Ordered By: Jeremy Magallanes on 07-11-2023 RBC (Bld) [#/Vol] 3.18 10*6/uL 4.6-6.2 [facility] Blood hemoglobin measurement (mass/volume)Ordered By: Jeremy Magallanes on 07-11-2023 Hemoglobin (Bld) [Mass/Vol] 10.2 g/dL 13.0-16.5 [facility] Blood lymphocytes/100 leukoc ytesOrdered By: Jeremy Magallanes on 07-11-2023 Lymphocytes/100 WBC (Bld) 9.8 % 19-41 [facility] Blood monocytes/100 leukocyt esOrdered By: Jeremy Magallanes on 07-11-2023 Monocytes/100 WBC (Bld) 9.5 % 0-10 [facility] Blood platelet mean volumeOr dered By: Jeremy Magallanes 07-11-2023 Platelet mean volume (Bld) [Entitic vol] 10.5 fL 6.2-12.0 [facility] Determination of erythrocyte mean corpuscular volume (MCV)Ordered By: Jeremy Magallanes 07-11-2023 MCV (RBC) [Entitic vol] 100.0 fL 80-94 [facility] Glucose Glucometer (BldC) [M ass/Vol]Ordered By: Jeremy Magallanes 07-11-2023 Glucose [Mass/Vol] 132 mg/dL 74-106 [facility] Hematocrit Auto (Bld) [Volum e fraction]Ordered By: Jeremy Magallanes 07-11-2023 Hematocrit (Bld) [Volume fraction] 31.8 % 40-54 [facility] MCHC Auto (RBC) [Mass/Vol]Or dered By: Jeremy Magallanes 07-11-2023 MCHC (RBC) [Mass/Vol] 32.1 g/dL 32-36 [facility] [place] No Panel InformationOrdered By: Jeremy Magallanes 07-11-2023 32.1 pg 27.0-32.0 [facility] 15.2 % 11.6-14.6 [facility] 53.7 fl 35.1-43.9 [facility] 0.400 % 0.0-0.9 [facility] 0 % 0-5 [facility] 28 mL/min >60 [facility] 33 mL/min >60 [facility] 20.56 ml/min [facility] 27.8 RATIO 10-20 [facility] 20.0 mmol/L 21.0-32.0 [facility] Platelets bldOrdered By: Jeremy Magallanes on 07-11-2023 Platelets (Bld) [#/Vol] 161 10*3/uL 150-450 [facility] Serum or plasma calcium aubree urement (mass/volume)Ordered By: Jeremy Magallanes on 07-11-2023 Calcium [Mass/Vol] 9.0 mg/dL 8.5-10.1 [facility] Serum or plasma creatinine m easurement (mass/volume)Ordered By: Jeremy Magallanes on 07-11-2023 Creatinine [Mass/Vol] 2.41 mg/dL 0.70-1.30 [facility] Serum or plasma urea nitroge n measurement (mass/volume)Ordered By: Jeremy Magallanes on 07-11-2023 Urea nitrogen [Mass/Vol] 67 mg/dL 7-18 [facility] Thin prep Papanicolaou smear with manual screeningOrdered By: Jeremy Magallanes on 07-11-2023 Thin prep Papanicolaou smear with manual screening 7 5-15 [facility] Basophil percentageOrdered B y: Jeremy Magallanes on 07-08-2023 Basophil percentage 6.7 g/dL 6.4-8.2 [facility] Basophil percentage 1.10 mg/dL 0.20-1.00 [facility] Bilirubin [Mass/Vol] 1.10 mg/dL 0.20-1.00 [facility] Comment on above: For patients on eltr ombopag therapy, use of Dimension [place] TBIL is not recommended. Protein [Mass/Vol] 6.7 g/dL 6.4-8.2 [facility] Laboratory - Chemistry and C hemistry - challengeOrdered By: Jeremy Magallanes on 07-08-2023 ALP [Catalytic activity/Vol] 144 U/L 45-117 [facility] ALT [Catalytic activity/Vol] 19 U/L 16-61 [facility] Globulin (S) [Mass/Vol] 4.0 g/dL 2.2-4.2 [facility] No Panel InformationOrdered By: Jeremy Magallanes on 07-08-2023 4.0 g/dL 2.2-4.2 [facility] 144 U/L 45-117 [facility] 19 U/L 16-61 [facility] 329.5 pg/mL 0-100 [facility] Serum or plasma albumin aubree urement (mass/volume)Ordered By: Jeremy Magallanes on 07-08-2023 Albumin [Mass/Vol] 2.7 g/dL 3.2-5.0 [facility] Serum or plasma albumin/glob ulin mass ratioOrdered By: Jeremy Magallanes on 07-08-2023 Albumin/Globulin [Mass ratio] 0.7 {ratio} 0.9-2.4 [facility] Thin prep Papanicolaou smear with manual screeningOrdered By: Jeremy Magallanes on 07-08-2023 Thin prep Papanicolaou smear with manual screening 20 U/L 15-37 [facility] Basophil percentageOrdered B y: Jeremy Magallanes on 07-07-2023 Basophil percentage 0 SEEN /hpf 0-5 [facility] Bilirubin Test strip Ql (U)O rdered By: Jeremy Magallanes on 07-07-2023 Bilirubin Ql (U) Negative Negative [facility] Culture, urineOrdered By: Jono Magallanes on 07-07-2023 Bacteria identified Cx Nom (U) Culture exhibits no growth. [facility] Ketones Test strip Ql (U)Ord ered By: Jeremy Magallanes on 07-07-2023 Ketones Ql (U) Negative Negative [facility] Mucus LM Ql (Urine sed)Order ed By: Jeremy Magallanes on 07-07-2023 Mucus Ql (Urine sed) 0 SEEN /hpf [facility] [place] Nitrite Test strip Ql (U)Ord ered By: Jeremy Magallanes on 07-07-2023 Nitrite Ql (U) Negative Negative [facility] Protein Test strip Ql (U)Ord ered By: Jeremy Magallanes on 07-07-2023 Protein Ql (U) 100 mg/dl Negative [facility] Squamous epithelial cells de tection in urine sediment by light microscopyOrdered By: Jeremy Magallanes on 07-07-2023 Epithelial cells.squamous LM Ql (Urine sed) 0 SEEN /hpf 0-5 [facility] Urine blood detectionOrdered By: Jeremy Magallanes on 07-07-2023 RBC Ql (U) 250 /ul Negative [facility] RBC Ql (U) 5-10 SEEN /hpf 0-5 [facility] Urine clarityOrdered By: Jeremy Magallanes on 07-07-2023 Clarity (U) Clear Clear [facility] Urine color determinationOrd ered By: Jeremy Magallanes on 07-07-2023 Color (U) Yellow Yellow [facility] Urine glucose detectionOrder ed By: Jeremy Magallanes on 07-07-2023 Glucose Ql (U) Normal mg/dl Normal [facility] Urine leukocyte esterase det ection by dipstickOrdered By: Jeremy Magallanes on 07-07-2023 Leukocyte esterase Test strip Ql (U) Negative Negative [facility] Urine pHOrdered By: Jeremy Magallanes on 07-07-2023 pH (U) 6.0 [pH] 5.0 - 8.0 [facility] Urine sediment bacteria coun t by microscopy (number/high power field)Ordered By: Jeremy Magallanes on 07-07-2023 Bacteria LM.HPF (Urine sed) [#/Area] 0 /[HPF] None Seen [facility] Urine specific gravity measu rementOrdered By: Jeremy Magallanes on 07-07-2023 Specific gravity (U) [Rel density] 1.015 1.002-1.030 [facility] Urobilinogen Auto test strip Ql (U)Ordered By: Jeremy Magallanes on 07-07-2023 Urobilinogen Ql (U) Normal mg/dl Normal [facility] [place] No Panel InformationOrdered By: Jeremy Magallanes on 07-06-2023 Vitamin D 25-Hydroxy 42.3 ng/mL [facility] Comment on above: Vitamin D 25(OH) Sta tus Range Deficiency <20 ng/mL (50nmol/L) Insufficiency 20 - 30 ng/mL (50 - 75 nmol/L) Sufficiency 30 - 100 ng/mL (75 - 250 nmol/L) Toxicity >100 ng/mL (>250 nmol/L) 42.3 ng/mL [facility] Stool gastrointestinal hemog lobin detection by immunologic methodOrdered By: Jeremy Magallanes on 07-06-2023 Lower GI hemoglobin IA Ql (Stl) [facility] Stool gastrointestinal hemog lobin detection by immunologic methodOrdered By: Jeremy Magallanes on 07-05-2023 Lower GI hemoglobin IA Ql (Stl) [facility] Glucose Glucometer (BldC) [M ass/Vol]Ordered By: Woody Brunson on 07-03-2023 Glucose [Mass/Vol] 180 mg/dL 74-106 [facility] Comment on above: MANAGEMENT OF PATIEN T CARE PER NURSING PROTOCOL Absolute lymphocyte countOrd ered By: Woody Brunson on 07-01-2023 Lymphocytes Auto (Unsp spec) [#/Vol] 1.34 10*3/uL 0.83-4.51 [facility] Basophil percentageOrdered B y: Woody Brunson on 07-01-2023 Basophil percentage 129 mg/dL 74-106 [facility] Basophil percentage 7.2 g/dL 6.4-8.2 [facility] Basophil percentage 1.50 mg/dL 0.20-1.00 [facility] Basophil percentage 139 mmol/L 136-145 [facility] Basophil percentage 4.4 mmol/L 3.5-5.1 [facility] Basophil percentage 109 mmol/L 98-107 [facility] Basophils (Bld) [#/Vol] 9.3 10*3/uL 4.4-11.0 [facility] Basophils (Bld) [#/Vol] 7.1 10*3/uL 2.0-7.7 [facility] Basophils/100 WBC (Bld) 0.4 % 0-1 [facility] Basophils/100 WBC (Bld) 76.6 % 47-70 [facility] Basophils/100 WBC (Bld) 0.6 % 0-5 [facility] Bilirubin [Mass/Vol] 1.50 mg/dL 0.20-1.00 [facility] Comment on above: For patients on eltr ombopag therapy, use of Dimension [place] TBIL is not recommended. Chloride [Moles/Vol] 109 mmol/L 98-107 [facility] Eosinophils/100 WBC (Bld) 0.6 % 0-5 [facility] Glucose [Mass/Vol] 129 mg/dL 74-106 [facility] Comment on above: Fasting Glucose resu lt greater than or equal to 126 mg/dL suggests DIABETES MELLITUS per A.D.A. criteria. Neutrophils (Bld) [#/Vol] 7.1 10*3/uL 2.0-7.7 [facility] Neutrophils/100 WBC (Bld) 76.6 % 47-70 [facility] Potassium [Moles/Vol] 4.4 mmol/L 3.5-5.1 [facility] Protein [Mass/Vol] 7.2 g/dL 6.4-8.2 [facility] Sodium [Moles/Vol] 139 mmol/L 136-145 [facility] WBC (Bld) [#/Vol] 9.3 10*3/uL 4.4-11.0 [facility] Blood erythrocytes count (nu mber/volume)Ordered By: Woody Brunson on 07-01-2023 RBC (Bld) [#/Vol] 3.55 10*6/uL 4.6-6.2 [facility] Blood hemoglobin measurement (mass/volume)Ordered By: Woody Brunson on 07-01-2023 Hemoglobin (Bld) [Mass/Vol] 11.4 g/dL 13.0-16.5 [facility] Blood lymphocytes/100 leukoc ytesOrdered By: Woody Brunson on 07-01-2023 Lymphocytes/100 WBC (Bld) 14.4 % 19-41 [facility] Blood monocytes/100 leukocyt esOrdered By: Woody Brunson on 07-01-2023 Monocytes/100 WBC (Bld) 7.7 % 0-10 [facility] Blood platelet mean volumeOr dered By: Woody Brunson on 07-01-2023 Platelet mean volume (Bld) [Entitic vol] 11.0 fL 6.2-12.0 [facility] Determination of erythrocyte mean corpuscular volume (MCV)Ordered By: Woody Brunson on 07-01-2023 MCV (RBC) [Entitic vol] 98.0 fL 80-94 [facility] Hematocrit Auto (Bld) [Volum e fraction]Ordered By: Woody Brunson on 07-01-2023 Hematocrit (Bld) [Volume fraction] 34.8 % 40-54 [facility] Laboratory - Chemistry and C hemistry - challengeOrdered By: Woody Brunson on 07-01-2023 ALP [Catalytic activity/Vol] 134 U/L 45-117 [facility] ALT [Catalytic activity/Vol] 14 U/L 16-61 [facility] CO2 [Moles/Vol] 25.0 mmol/L 21.0-32.0 [facility] Globulin (S) [Mass/Vol] 4.1 g/dL 2.2-4.2 [facility] Urea nitrogen/Creatinine [Mass ratio] 20.8 mg/mg 10-20 [facility] Laboratory - Hematology and Cell countsOrdered By: Woody Brunson on 07-01-2023 Erythrocyte distribution width (RBC) [Entitic vol] 51.6 fL 35.1-43.9 [facility] Erythrocyte distribution width (RBC) [Ratio] 14.3 % 11.6-14.6 [facility] Immature granulocytes/100 WBC (Bld) 0.300 % 0.0-0.9 [facility] Comment on above: IG% - Immature Granu locytes (promyelocytes, myelocytes and metamyelocytes) > 1% indicates that a LEFT SHIFT is Present. MCH (RBC) [Entitic mass] 32.1 pg 27.0-32.0 [facility] Nucleated RBC/100 WBC (Bld) [Ratio] 0 % 0-5 [facility] MCHC Auto (RBC) [Mass/Vol]Or dered By: Woody Brunson on 07-01-2023 MCHC (RBC) [Mass/Vol] 32.8 g/dL 32-36 [facility] [place] No Panel InformationOrdered By: Woody Brunson on 07-01-2023 Estimated Creatinine Clearance Calc 23.37 ml/min [facility] Estimated GFR (MDRD) Amer 39 mL/min >60 [facility] Comment on above: GFR Calc Estimated GFR (MDRD) Non-Af Amer 32 mL/min >60 [facility] Comment on above: Non- GFR Calc 32.1 pg 27.0-32.0 [facility] 14.3 % 11.6-14.6 [facility] 51.6 fl 35.1-43.9 [facility] 0.300 % 0.0-0.9 [facility] 0 % 0-5 [facility] 32 mL/min >60 [facility] 39 mL/min >60 [facility] 23.37 ml/min [facility] 20.8 RATIO 10-20 [facility] 4.1 g/dL 2.2-4.2 [facility] 134 U/L 45-117 [facility] 14 U/L 16-61 [facility] 25.0 mmol/L 21.0-32.0 [facility] Platelets bldOrdered By: Ksenia Brunson on 07-01-2023 Platelets (Bld) [#/Vol] 116 10*3/uL 150-450 [facility] Serum or plasma albumin aubree urement (mass/volume)Ordered By: Woody Brunson on 07-01-2023 Albumin [Mass/Vol] 3.1 g/dL 3.2-5.0 [facility] Serum or plasma albumin/glob ulin mass ratioOrdered By: Woody Brunson on 07-01-2023 Albumin/Globulin [Mass ratio] 0.8 {ratio} 0.9-2.4 [facility] Serum or plasma calcium aubree urement (mass/volume)Ordered By: Woody Brunson on 07-01-2023 Calcium [Mass/Vol] 9.0 mg/dL 8.5-10.1 [facility] Serum or plasma creatinine m easurement (mass/volume)Ordered By: Woody Brunson on 07-01-2023 Creatinine [Mass/Vol] 2.12 mg/dL 0.70-1.30 [facility] [place] Comment on above: The validity of the calculated GFR & GFRAA in patients over 70 years has not been determined. Clinical correlation is essential. Serum or plasma urea nitroge n measurement (mass/volume)Ordered By: Woody Brunson on 07-01-2023 Urea nitrogen [Mass/Vol] 44 mg/dL 7-18 [facility] Thin prep Papanicolaou smear with manual screeningOrdered By: Woody Brunson on 07-01-2023 Thin prep Papanicolaou smear with manual screening 21 U/L 15-37 [facility] Thin prep Papanicolaou smear with manual screening 5 5-15 [facility] Assessment of wrist artery p atency prior to arterial punctureOrdered By: Woody Brunson on 06-30-2023 Arterial patency Wrist artery --pre arterial puncture Positive [facility] Base excessOrdered By: Woody Brunson on 06-30-2023 Base excess Calc (BldV) [Moles/Vol] 0 mmol/L -2-2 [facility] Basophil percentageOrdered B y: Woody Brunson on 06-30-2023 Basophil percentage 24.2 mmol/L 22- [facility] Basophils/100 WBC (Bld) 97 % 95-99 [facility] Ammonia (P) [Moles/Vol] 28.0 umol/L [facility] Basophil percentage 28.0 umol/L [facility] Basophil percentageOrdered B y: Rigoberto Ashley on 06-30-2023 Basophil percentage 75 mg/dL <200 [facility] Basophil percentage 98 mg/dL <199 [facility] Cholesterol [Mass/Vol] 75 mg/dL <[address] [facility] Comment on above: <200 mg/dL Desirable 200-240 mg/dL Borderline >240 mg/dL High Risk Triglyceride [Mass/Vol] 98 mg/dL <199 [facility] Comment on above: The drugs N-Acetylcy steine and Metamizole may falsely depress this assay.Serum Triglycerides Reference Interval Normal <150 mg/dL Borderline high 150 - 199 mg/dL High 200 - 499 mg/dL Very High > or = 500 mg/dL CO2 (BldA) [Partial pressure ]Ordered By: Woody Brunson on 06-30-2023 CO2 (Bld) [Partial pressure] 34.5 mm[Hg] 35-45 [facility] No Panel InformationOrdered By: Woody Brunson on 06-30-2023 Blood Gas Liter Flow 5.0 /min [facility] Blood Gas Sample Site R Radial [facility] Blood Gas Specimen Type ART [facility] Blood Gas Total CO2 25 mmol/L [facility] Oxygen Delivery Device Cannula [facility] ART [facility] R Radial [facility] Cannula [facility] 5.0 /min [facility] 25 mmol/L [facility] No Panel InformationOrdered By: Rigoberto Ashley on 06-30-2023 Thyroid Stimulating Hormone (TSH) 5.37 uIU/mL 0.358-3.74 [facility] 5.37 uIU/mL 0.358-3.74 [facility] Oxygen (BldA) [Partial press ure]Ordered By: Woody Brunson on 06-30-2023 Oxygen (Bld) [Partial pressure] 81 mmHG 75-100 [facility] Serum or plasma cholesterol in HDL measurement (mass/volume)Ordered By: Rigoberto Ashley on 06-30-2023 Cholesterol in HDL [Mass/Vol] 30 mg/dL >40 [facility] Comment on above: The drugs N-Acetylcy steine and Metamizole may falsely depress this assay. Reference Range HDL <40 mg/dL Low HDL Cholesterol HDL >or= 60 mg/dL High HDL Cholesterol Serum or plasma cholesterol in VLDL measurement (mass/volume)Ordered By: Rigoberto Ashley on 06-30-2023 Cholesterol in VLDL [Mass/Vol] 20 mg/dL 5-40 [facility] Serum or plasma low density lipoprotein (LDL) cholesterol measurement (mass/volume)Ordered By: Rigoberto Ashley on 06-30-2023 Cholesterol in LDL [Mass/Vol] 25 mg/dL 0-130 [facility] Whole blood hemoglobin A1c/t otal hemoglobin ratio (mass fraction)Ordered By: Rigoberto Ashley on 06-30-2023 HbA1c (Bld) [Mass fraction] 5.6 % 3.8-5.6 [facility] Comment on above: Normal < 5.7 % Predi abetic 5.7 - 6.4 % Diabetic >or= 6.5 % Please note range changes. pH measurementOrdered By: Kyler Brunson on 06-30-2023 pH (Unsp spec) 7.45 [pH] 7.35-7.45 [facility] Absolute lymphocyte countOrd ered By: Angélica Palomo on 06-29-2023 Lymphocytes Auto (Unsp spec) [#/Vol] 2.01 10*3/uL 0.83-4.51 [facility] Basophil percentageOrdered B y: Angélica Palomo on 06-29-2023 Basophil percentage 0 SEEN /hpf 0-5 [facility] Basophils/100 WBC (Bld) 0.6 % 0-1 [facility] Chloride [Moles/Vol] 107 mmol/L 98-107 [facility] Eosinophils/100 WBC (Bld) 1.4 % 0-5 [facility] Glucose [Mass/Vol] 102 mg/dL 74-106 [facility] Comment on above: Fasting Glucose resu lt from 100 to 125 mg/dL suggests IMPAIRED HOMEOSTASIS per A.D.A. criteria. Neutrophils (Bld) [#/Vol] 6.7 10*3/uL 2.0-7.7 [facility] Neutrophils/100 WBC (Bld) 70.0 % 47-70 [facility] Potassium [Moles/Vol] 4.7 mmol/L 3.5-5.1 [facility] Sodium [Moles/Vol] 141 mmol/L 136-145 [facility] WBC (Bld) [#/Vol] 9.5 10*3/uL 4.4-11.0 [facility] Basophil percentageOrdered B y: Rigoberto Dion on 06-29-2023 Basophil percentage 3.9 mg/dL 2.5-4.9 [facility] Bilirubin Test strip Ql (U)O rdered By: Angélica Palomo on 06-29-2023 Bilirubin Ql (U) Negative Negative [facility] Blood erythrocytes count (nu mber/volume)Ordered By: Angélica Palomo on 06-29-2023 RBC (Bld) [#/Vol] 3.69 10*6/uL 4.6-6.2 [facility] Blood hemoglobin measurement (mass/volume)Ordered By: Angélica Palomo on 06-29-2023 Hemoglobin (Bld) [Mass/Vol] 11.6 g/dL 13.0-16.5 [facility] Blood lymphocytes/100 leukoc ytesOrdered By: Angélica Palomo on 06-29-2023 Lymphocytes/100 WBC (Bld) 21.1 % 19-41 [facility] Blood monocytes/100 leukocyt esOrdered By: Angélica Palomo on 06-29-2023 Monocytes/100 WBC (Bld) 6.4 % 0-10 [facility] Blood platelet mean volumeOr dered By: Angélica Palomo on 06-29-2023 Platelet mean volume (Bld) [Entitic vol] 11.3 fL 6.2-12.0 [facility] Determination of erythrocyte mean corpuscular volume (MCV)Ordered By: Angélica Palomo on 06-29-2023 MCV (RBC) [Entitic vol] 99.5 fL 80-94 [facility] HCO3 (BldA) [Moles/Vol]Order ed By: Angélica Palomo on 06-29-2023 HCO3 (Bld) [Moles/Vol] 25 mmol/L 22-[address] [facility] Hematocrit Auto (Bld) [Volum e fraction]Ordered By: Angélica Plaomo on 06-29-2023 Hematocrit (Bld) [Volume fraction] 36.7 % 40-54 [facility] INR in Blood by Coagulation assayOrdered By: Angélica Palomo on 06-29-2023 INR Coag (Bld) [Relative time] 1.5 {INR} [facility] Ketones Test strip Ql (U)Ord ered By: Angélica Palomo on 06-29-2023 Ketones Ql (U) Negative Negative [facility] Laboratory - Chemistry and C hemistry - challengeOrdered By: Angélica Palomo on 06-29-2023 CO2 [Moles/Vol] 26 mmol/L 23-33 [facility] CO2 [Moles/Vol] 28.0 mmol/L 21.0-32.0 [facility] Urea nitrogen/Creatinine [Mass ratio] 19.0 mg/mg 10-20 [facility] Laboratory - Chemistry and C hemistry - challengeOrdered By: Rigoberto Ashley on 06-29-2023 Magnesium [Mass/Vol] 1.9 mg/dL 1.6-2.6 [facility] Laboratory - CoagulationOrde red By: Angélica Palomo on 06-29-2023 aPTT Coag (Bld) [Time] 40.4 s 24.1-36.[address] [facility] PT Coag (PPP) [Time] 18.0 s 11.7-14.9 [facility] Laboratory - Hematology and Cell countsOrdered By: Angélica Palomo on 06-29-2023 Erythrocyte distribution width (RBC) [Entitic vol] 51.5 fL 35.1-43.9 [facility] Erythrocyte distribution width (RBC) [Ratio] 14.2 % 11.6-14.6 [facility] Immature granulocytes/100 WBC (Bld) 0.500 % 0.0-0.9 [facility] Comment on above: IG% - Immature Granu locytes (promyelocytes, myelocytes and metamyelocytes) > 1% indicates that a LEFT SHIFT is Present. MCH (RBC) [Entitic mass] 31.4 pg 27.0-32.0 [facility] Nucleated RBC/100 WBC (Bld) [Ratio] 0 % 0-5 [facility] MCHC Auto (RBC) [Mass/Vol]Or dered By: Angélica Palomo on 06-29-2023 MCHC (RBC) [Mass/Vol] 31.6 g/dL 32-36 [facility] Mucus LM Ql (Urine sed)Order ed By: Angélica Palomo on 06-29-2023 Mucus Ql (Urine sed) 0 SEEN /hpf [facility] Nitrite Test strip Ql (U)Ord ered By: Angélica Palomo on 06-29-2023 Nitrite Ql (U) Negative Negative [facility] No Panel InformationOrdered By: Angélica Palomo on 06-29-2023 Bed Mix Venous Bld PCO2 at Pat Temp 34.8 mmHg 41-51 [facility] Blood Gas Liter Flow 4.0 /min [facility] Blood Gas Specimen Type AYE [facility] Venous Blood Base Excess 1 mmol/L -1.0-3.5 [facility] 34.8 mmHg 41-51 [facility] 1 mmol/L -1.0-3.5 [facility] 93 % 50-70 [facility] 26 mmol/L 23-33 [facility] Estimated Creatinine Clearance Calc 19.98 ml/min [facility] Estimated GFR (MDRD) Amer 32 mL/min >60 [facility] Comment on above: GFR Calc Estimated GFR (MDRD) Non-Af Amer 27 mL/min >60 [facility] Comment on above: Non- GFR Calc Troponin I High Sensitivity 66 pg/mL 3.0-78.0 [facility] Comment on above: Please Note: New Meghana t Units and Gender Specific Reference Ranges. For more information see Policy Stat Procedure [facility] High Sensitivity Troponin (TNIH) and attachments. 18.0 SECONDS 11.7-14.9 [facility] 40.4 Seconds 24.1-36.2 [facility] 66 pg/mL 3.0-78.0 [facility] No Panel InformationOrdered By: Rigoberto Ashley on 06-29-2023 1.9 mg/dL 1.6-2.6 [facility] PO2 venousOrdered By: Angélica Palomo on 06-29-2023 Oxygen (BldV) [Partial pressure] 64 mm[Hg] 25-40 [facility] Platelets bldOrdered By: Dee Palomo on 06-29-2023 Platelets (Bld) [#/Vol] 143 10*3/uL 150-450 [facility] Protein Test strip Ql (U)Ord ered By: Angélica Palomo on 06-29-2023 Protein Ql (U) 30 mg/dl Negative [facility] Serum or plasma calcium aubree urement (mass/volume)Ordered By: Angélica Palomo on 06-29-2023 Calcium [Mass/Vol] 9.9 mg/dL 8.5-10.1 [facility] Serum or plasma creatinine m easurement (mass/volume)Ordered By: Angélica Palomo on 06-29-2023 Creatinine [Mass/Vol] 2.48 mg/dL 0.70-1.30 [facility] Comment on above: The validity of the calculated GFR & GFRAA in patients over 70 years has not been determined. Clinical correlation is essential. Serum or plasma urea nitroge n measurement (mass/volume)Ordered By: Angélica Palomo on 06-29-2023 Urea nitrogen [Mass/Vol] 47 mg/dL 7-18 [facility] Squamous epithelial cells de tection in urine sediment by light microscopyOrdered By: Angélica Palomo on 06-29-2023 Epithelial cells.squamous LM Ql (Urine sed) 0 SEEN /hpf 0-5 [facility] Thin prep Papanicolaou smear with manual screeningOrdered By: Angélica Palomo on 06-29-2023 Thin prep Papanicolaou smear with manual screening 6 5-15 [facility] Urine blood detectionOrdered By: Angélica Palomo on 06-29-2023 RBC Ql (U) Negative Negative [facility] RBC Ql (U) 0 SEEN /hpf 0-5 [facility] Urine clarityOrdered By: Dee Palomo on 06-29-2023 Clarity (U) Clear Clear [facility] Urine color determinationOrd ered By: Angélica Palomo on 06-29-2023 Color (U) Yellow Yellow [facility] Urine glucose detectionOrder ed By: Angélica Palomo on 06-29-2023 Glucose Ql (U) Normal mg/dl Normal [facility] Urine leukocyte esterase det ection by dipstickOrdered By: Angélica Palomo on 06-29-2023 Leukocyte esterase Test strip Ql (U) Negative Negative [facility] Urine pHOrdered By: Angélica sher on 06-29-2023 pH (U) 6.0 [pH] 5.0 - 8.0 [facility] Urine sediment bacteria coun t by microscopy (number/high power field)Ordered By: Angélica Palomo on 06-29-2023 Bacteria LM.HPF (Urine sed) [#/Area] 0 /[HPF] None Seen [facility] Urine specific gravity measu rementOrdered By: Angélica Palomo on 06-29-2023 Specific gravity (U) [Rel density] 1.015 1.002-1.030 [facility] Urobilinogen Auto test strip Ql (U)Ordered By: Angélica Palomo on 06-29-2023 Urobilinogen Ql (U) Normal mg/dl Normal [facility] Vital signsOrdered By: Senia Palomo on 06-29-2023 Oxygen saturation in Blood 93 % 50-70 [facility] pH measurementOrdered By: Phoenix Palomo on 06-29-2023 pH (Unsp spec) 7.46 [pH] 7.32-7.42 [facility] Absolute lymphocyte countOrd ered By: Pepe Au on 06-13-2023 Lymphocytes Auto (Unsp spec) [#/Vol] 1.92 10*3/uL 0.83-4.51 [facility] Basophil percentageOrdered B y: Pepe Au on 06-13-2023 Basophil percentage 3.0 mg/dL 2.5-4.9 [facility] Basophil percentage 172 mg/dL 74-106 [facility] Basophil percentage 140 mmol/L 136-145 [facility] Basophil percentage 4.6 mmol/L 3.5-5.1 [facility] Basophil percentage 110 mmol/L 98-107 [facility] Basophils (Bld) [#/Vol] 8.7 10*3/uL 4.4-11.0 [facility] Basophils (Bld) [#/Vol] 6.0 10*3/uL 2.0-7.7 [facility] Basophils/100 WBC (Bld) 0.3 % 0-1 [facility] Basophils/100 WBC (Bld) 68.6 % 47-70 [facility] Basophils/100 WBC (Bld) 1.8 % 0-5 [facility] Chloride [Moles/Vol] 110 mmol/L 98-107 [facility] Eosinophils/100 WBC (Bld) 1.8 % 0-5 [facility] Glucose [Mass/Vol] 172 mg/dL 74-106 [facility] Comment on above: Fasting Glucose resu lt greater than or equal to 126 mg/dL suggests DIABETES MELLITUS per A.D.A. criteria. Neutrophils (Bld) [#/Vol] 6.0 10*3/uL 2.0-7.7 [facility] Neutrophils/100 WBC (Bld) 68.6 % 47-70 [facility] Potassium [Moles/Vol] 4.6 mmol/L 3.5-5.1 [facility] Sodium [Moles/Vol] 140 mmol/L 136-145 [facility] WBC (Bld) [#/Vol] 8.7 10*3/uL 4.4-11.0 [facility] Blood erythrocytes count (nu mber/volume)Ordered By: Pepe Au on 06-13-2023 RBC (Bld) [#/Vol] 3.60 10*6/uL 4.6-6.2 [facility] Blood hemoglobin measurement (mass/volume)Ordered By: Pepe Au on 06-13-2023 Hemoglobin (Bld) [Mass/Vol] 11.4 g/dL 13.0-16.5 [facility] Blood lymphocytes/100 leukoc ytesOrdered By: Pepe Au on 06-13-2023 Lymphocytes/100 WBC (Bld) 22.0 % 19-41 [facility] Blood monocytes/100 leukocyt esOrdered By: Pepe Au on 06-13-2023 Monocytes/100 WBC (Bld) 7.0 % 0-10 [facility] Blood platelet mean volumeOr dered By: Pepe Au on 06-13-2023 Platelet mean volume (Bld) [Entitic vol] 10.8 fL 6.2-12.0 [facility] Determination of erythrocyte mean corpuscular volume (MCV)Ordered By: Pepe Au on 06-13-2023 MCV (RBC) [Entitic vol] 101.4 fL 80-94 [facility] Hematocrit Auto (Bld) [Volum e fraction]Ordered By: Pepe Au on 06-13-2023 Hematocrit (Bld) [Volume fraction] 36.5 % 40-54 [facility] Iron measurement (mass/mass) Ordered By: Pepe Au on 06-13-2023 Iron (Unsp spec) [Mass/Mass] 60 ug/dL 65-175 [facility] Laboratory - Chemistry and C hemistry - challengeOrdered By: Pepe Au on 06-13-2023 CO2 [Moles/Vol] 25.0 mmol/L 21.0-32.0 [facility] Urea nitrogen/Creatinine [Mass ratio] 19.7 mg/mg 10-20 [facility] Laboratory - Hematology and Cell countsOrdered By: Pepe Au on 06-13-2023 Erythrocyte distribution width (RBC) [Entitic vol] 52.5 fL 35.1-43.9 [facility] Erythrocyte distribution width (RBC) [Ratio] 14.1 % 11.6-14.6 [facility] Immature granulocytes/100 WBC (Bld) 0.300 % 0.0-0.9 [facility] Comment on above: IG% - Immature Granu locytes (promyelocytes, myelocytes and metamyelocytes) > 1% indicates that a LEFT SHIFT is Present. MCH (RBC) [Entitic mass] 31.7 pg 27.0-32.0 [facility] Nucleated RBC/100 WBC (Bld) [Ratio] 0 % 0-5 [facility] MCHC Auto (RBC) [Mass/Vol]Or dered By: Pepe Au on 06-13-2023 MCHC (RBC) [Mass/Vol] 31.2 g/dL 32-36 [facility] No Panel InformationOrdered By: Pepe Au on 06-13-2023 Estimated GFR (MDRD) Amer 28 mL/min >60 [facility] Comment on above: GFR Calc Estimated GFR (MDRD) Non-Af Amer 23 mL/min >60 [facility] Comment on above: Non- GFR Calc Total Iron Binding Capacity 258 ug/dL 250-450 [facility] 31.7 pg 27.0-32.0 [facility] 14.1 % 11.6-14.6 [facility] 52.5 fl 35.1-43.9 [facility] 0.300 % 0.0-0.9 [facility] 0 % 0-5 [facility] 23 mL/min >60 [facility] 28 mL/min >60 [facility] 19.7 RATIO 10-20 [facility] 25.0 mmol/L 21.0-32.0 [facility] 258 ug/dL 250-450 [facility] Platelets bldOrdered By: Zandra Au on 06-13-2023 Platelets (Bld) [#/Vol] 120 10*3/uL 150-450 [facility] Serum or plasma albumin aubree urement (mass/volume)Ordered By: Pepe Au on 06-13-2023 Albumin [Mass/Vol] 3.3 g/dL 3.2-5.0 [facility] Serum or plasma calcium aubree urement (mass/volume)Ordered By: Pepe Au on 06-13-2023 Calcium [Mass/Vol] 8.5 mg/dL 8.5-10.1 [facility] Serum or plasma creatinine m easurement (mass/volume)Ordered By: Pepe Au on 06-13-2023 Creatinine [Mass/Vol] 2.84 mg/dL 0.70-1.30 [facility] Comment on above: The validity of the calculated GFR & GFRAA in patients over 70 years has not been determined. Clinical correlation is essential. Serum or plasma ferritin laurie surement (mass/volume)Ordered By: Pepe Au on 06-13-2023 Ferritin [Mass/Vol] 168 ng/mL 26-388 [facility] Serum or plasma iron saturat ion measurement (mass fraction)Ordered By: Pepe Au on 06-13-2023 Iron saturation [Mass fraction] 23.3 % 15.0-55.0 [facility] Serum or plasma urea nitroge n measurement (mass/volume)Ordered By: Pepe Au on 06-13-2023 Urea nitrogen [Mass/Vol] 56 mg/dL 7-18 [facility] Absolute lymphocyte countOrd ered By: Toñito Espino on 05-26-2023 Lymphocytes Auto (Unsp spec) [#/Vol] 1.58 10*3/uL 0.83-4.51 [facility] Basophil percentageOrdered B y: Toñito Espino on 05-26-2023 Basophil percentage 3.7 mg/dL 2.5-4.9 [facility] Basophil percentage 196 mg/dL 74-106 [facility] Basophil percentage 7.8 g/dL 6.4-8.2 [facility] Basophil percentage 0.80 mg/dL 0.20-1.00 [facility] Basophil percentage 140 mmol/L 136-145 [facility] Basophil percentage 4.7 mmol/L 3.5-5.1 [facility] Basophil percentage 107 mmol/L 98-107 [facility] Basophils (Bld) [#/Vol] 8.7 10*3/uL 4.4-11.0 [facility] Basophils (Bld) [#/Vol] 6.5 10*3/uL 2.0-7.7 [facility] Basophils/100 WBC (Bld) 0.5 % 0-1 [facility] Basophils/100 WBC (Bld) 74.3 % 47-70 [facility] Basophils/100 WBC (Bld) 1.3 % 0-5 [facility] Bilirubin [Mass/Vol] 0.80 mg/dL 0.20-1.00 [facility] Comment on above: For patients on eltr ombopag therapy, use of Dimension [place] TBIL is not recommended. Chloride [Moles/Vol] 107 mmol/L 98-107 [facility] Eosinophils/100 WBC (Bld) 1.3 % 0-5 [facility] Glucose [Mass/Vol] 196 mg/dL 74-106 [facility] Comment on above: Fasting Glucose resu lt greater than or equal to 126 mg/dL suggests DIABETES MELLITUS per A.D.A. criteria. Neutrophils (Bld) [#/Vol] 6.5 10*3/uL 2.0-7.7 [facility] Neutrophils/100 WBC (Bld) 74.3 % 47-70 [facility] Potassium [Moles/Vol] 4.7 mmol/L 3.5-5.1 [facility] Protein [Mass/Vol] 7.8 g/dL 6.4-8.2 [facility] Sodium [Moles/Vol] 140 mmol/L 136-145 [facility] WBC (Bld) [#/Vol] 8.7 10*3/uL 4.4-11.0 [facility] Blood erythrocytes count (nu mber/volume)Ordered By: Toñito Espino on 05-26-2023 RBC (Bld) [#/Vol] 3.52 10*6/uL 4.6-6.2 [facility] Blood hemoglobin measurement (mass/volume)Ordered By: Toñito Espino on 05-26-2023 Hemoglobin (Bld) [Mass/Vol] 11.1 g/dL 13.0-16.5 [facility] Blood lymphocytes/100 leukoc ytesOrdered By: Toñito Espino on 05-26-2023 Lymphocytes/100 WBC (Bld) 18.1 % 19-41 [facility] Blood monocytes/100 leukocyt esOrdered By: Toñito Espino on 05-26-2023 Monocytes/100 WBC (Bld) 5.3 % 0-10 [facility] Blood platelet mean volumeOr dered By: Toñito Espino on 05-26-2023 Platelet mean volume (Bld) [Entitic vol] 11.6 fL 6.2-12.0 [facility] Determination of erythrocyte mean corpuscular volume (MCV)Ordered By: Toñito Espino on 05-26-2023 MCV (RBC) [Entitic vol] 101.1 fL 80-94 [facility] Hematocrit Auto (Bld) [Volum e fraction]Ordered By: Toñito Espino on 05-26-2023 Hematocrit (Bld) [Volume fraction] 35.6 % 40-54 [facility] Iron measurement (mass/mass) Ordered By: Toñito Espino on 05-26-2023 Iron (Unsp spec) [Mass/Mass] 75 ug/dL 65-175 [facility] Laboratory - Chemistry and C hemistry - challengeOrdered By: Toñito Espino on 05-26-2023 ALP [Catalytic activity/Vol] 134 U/L 45-117 [facility] ALT [Catalytic activity/Vol] 14 U/L 16-61 [facility] CO2 [Moles/Vol] 27.0 mmol/L 21.0-32.0 [facility] Globulin (S) [Mass/Vol] 4.6 g/dL 2.2-4.2 [facility] Urea nitrogen/Creatinine [Mass ratio] 19.9 mg/mg 10-20 [facility] Laboratory - Hematology and Cell countsOrdered By: Toñito Espino on 05-26-2023 Erythrocyte distribution width (RBC) [Entitic vol] 51.8 fL 35.1-43.9 [facility] Erythrocyte distribution width (RBC) [Ratio] 14.2 % 11.6-14.6 [facility] Immature granulocytes/100 WBC (Bld) 0.500 % 0.0-0.9 [facility] Comment on above: IG% - Immature Granu locytes (promyelocytes, myelocytes and metamyelocytes) > 1% indicates that a LEFT SHIFT is Present. MCH (RBC) [Entitic mass] 31.5 pg 27.0-32.0 [facility] Nucleated RBC/100 WBC (Bld) [Ratio] 0 % 0-5 [facility] MCHC Auto (RBC) [Mass/Vol]Or dered By: Toñito Espino on 05-26-2023 MCHC (RBC) [Mass/Vol] 31.2 g/dL 32-36 [facility] No Panel InformationOrdered By: Toñito Espino on 05-26-2023 Estimated GFR (MDRD) Amer 26 mL/min >60 [facility] Comment on above: GFR Calc Estimated GFR (MDRD) Non-Af Amer 21 mL/min >60 [facility] Comment on above: Non- GFR Calc Parathyroid Hormone (Intact) 20.3 pg/mL 18.4-80.1 [facility] Thyroid Stimulating Hormone (TSH) 4.65 uIU/mL 0.358-3.74 [facility] Total Iron Binding Capacity 278 ug/dL 250-450 [facility] 31.5 pg 27.0-32.0 [facility] 14.2 % 11.6-14.6 [facility] 51.8 fl 35.1-43.9 [facility] 0.500 % 0.0-0.9 [facility] 0 % 0-5 [facility] 21 mL/min >60 [facility] 26 mL/min >60 [facility] 19.9 RATIO 10-20 [facility] 4.6 g/dL 2.2-4.2 [facility] 134 U/L 45-117 [facility] 14 U/L 16-61 [facility] 27.0 mmol/L 21.0-32.0 [facility] 4.65 uIU/mL 0.358-3.74 [facility] 278 ug/dL 250-450 [facility] 20.3 pg/mL 18.4-80.1 [facility] Platelets bldOrdered By: Sujit Espino on 05-26-2023 Platelets (Bld) [#/Vol] 130 10*3/uL 150-450 [facility] Serum or plasma albumin aubree urement (mass/volume)Ordered By: Toñito Espino on 05-26-2023 Albumin [Mass/Vol] 3.2 g/dL 3.2-5.0 [facility] Serum or plasma albumin/glob ulin mass ratioOrdered By: Toñito Espino on 05-26-2023 Albumin/Globulin [Mass ratio] 0.7 {ratio} 0.9-2.4 [facility] Serum or plasma calcium aubree urement (mass/volume)Ordered By: Toñito Espino on 05-26-2023 Calcium [Mass/Vol] 9.3 mg/dL 8.5-10.1 [facility] Serum or plasma creatinine m easurement (mass/volume)Ordered By: Toñito Espino on 05-26-2023 Creatinine [Mass/Vol] 3.02 mg/dL 0.70-1.30 [facility] Comment on above: The validity of the calculated GFR & GFRAA in patients over 70 years has not been determined. Clinical correlation is essential. Serum or plasma ferritin laurie surement (mass/volume)Ordered By: Toñito Espino on 05-26-2023 Ferritin [Mass/Vol] 151 ng/mL 26-388 [facility] Serum or plasma iron saturat ion measurement (mass fraction)Ordered By: Toñito Espino on 05-26-2023 Iron saturation [Mass fraction] 27.0 % 15.0-55.0 [facility] Serum or plasma urea nitroge n measurement (mass/volume)Ordered By: Toñito Espino on 05-26-2023 Urea nitrogen [Mass/Vol] 60 mg/dL 7-18 [facility] Thin prep Papanicolaou smear with manual screeningOrdered By: Toñito Espino on 05-26-2023 Thin prep Papanicolaou smear with manual screening 15 U/L 15-37 [facility] Thin prep Papanicolaou smear with manual screening 6 5-15 [facility] Urine creatinine measurement (mass/volume)Ordered By: Toñito Espino on 05-26-2023 Creatinine (U) [Mass/Vol] 84.50 mg/dL NO RANGE EST. [facility] Urine protein measurement (m ass/volume)Ordered By: Toñito Espino on 05-26-2023 Protein (U) [Mass/Vol] 58.6 mg/dL 0.0-11.[address] [facility] Urine protein/creatinine mas s ratioOrdered By: Toñito Espino on 05-26-2023 Protein/Creatinine (U) [Mass ratio] 693 mg/g CRE 0-200 [facility] Whole blood hemoglobin A1c/t otal hemoglobin ratio (mass fraction)Ordered By: Toñito Espino on 05-26-2023 HbA1c (Bld) [Mass fraction] 5.5 % 3.8-5.6 [facility] Comment on above: Normal < 5.7 % Predi abetic 5.7 - 6.4 % Diabetic >or= 6.5 % Please note range changes. Absolute lymphocyte countOrd ered By: Dr. Au on 05-16-2023 Lymphocytes Auto (Unsp spec) [#/Vol] 2.23 10*3/uL 0.83-4.51 [facility] Basophil percentageOrdered B y: Dr. Au on 05-16-2023 Basophil percentage 3.8 mg/dL 2.5-4.9 [facility] Basophils/100 WBC (Bld) 0.5 % 0-1 [facility] Chloride [Moles/Vol] 110 mmol/L 98-107 [facility] Eosinophils/100 WBC (Bld) 2.4 % 0-5 [facility] Glucose [Mass/Vol] 163 mg/dL 74-106 [facility] Comment on above: Fasting Glucose resu lt greater than or equal to 126 mg/dL suggests DIABETES MELLITUS per A.D.A. criteria. Neutrophils (Bld) [#/Vol] 6.0 10*3/uL 2.0-7.7 [facility] Neutrophils/100 WBC (Bld) 66.1 % 47-70 [facility] Potassium [Moles/Vol] 4.6 mmol/L 3.5-5.1 [facility] Sodium [Moles/Vol] 141 mmol/L 136-145 [facility] WBC (Bld) [#/Vol] 9.1 10*3/uL 4.4-11.0 [facility] Basophil percentageOrdered B y: Pepe Au on 05-16-2023 Basophil percentage 163 mg/dL 74-106 [facility] Basophil percentage 141 mmol/L 136-145 [facility] Basophil percentage 4.6 mmol/L 3.5-5.1 [facility] Basophil percentage 110 mmol/L 98-107 [facility] Basophils (Bld) [#/Vol] 9.1 10*3/uL 4.4-11.0 [facility] Basophils (Bld) [#/Vol] 6.0 10*3/uL 2.0-7.7 [facility] Basophils/100 WBC (Bld) 66.1 % 47-70 [facility] Basophils/100 WBC (Bld) 2.4 % 0-5 [facility] Blood erythrocytes count (nu mber/volume)Ordered By: Dr. Au on 05-16-2023 RBC (Bld) [#/Vol] 3.57 10*6/uL 4.6-6.2 [facility] Blood hemoglobin measurement (mass/volume)Ordered By: Dr. Au on 05-16-2023 Hemoglobin (Bld) [Mass/Vol] 11.2 g/dL 13.0-16.5 [facility] Blood lymphocytes/100 leukoc ytesOrdered By: Dr. Au on 05-16-2023 Lymphocytes/100 WBC (Bld) 24.5 % 19-41 [facility] Blood monocytes/100 leukocyt esOrdered By: Dr. Au on 05-16-2023 Monocytes/100 WBC (Bld) 6.1 % 0-10 [facility] Blood platelet mean volumeOr dered By: Dr. Au on 05-16-2023 Platelet mean volume (Bld) [Entitic vol] 10.3 fL 6.2-12.0 [facility] Determination of erythrocyte mean corpuscular volume (MCV)Ordered By: Dr. Au on 05-16-2023 MCV (RBC) [Entitic vol] 100.0 fL 80-94 [facility] Hematocrit Auto (Bld) [Volum e fraction]Ordered By: Dr. Au on 05-16-2023 Hematocrit (Bld) [Volume fraction] 35.7 % 40-54 [facility] Iron measurement (mass/mass) Ordered By: Dr. Au on 05-16-2023 Iron (Unsp spec) [Mass/Mass] 70 ug/dL 65-175 [facility] Laboratory - Chemistry and C hemistry - challengeOrdered By: Dr. Au on 05-16-2023 CO2 [Moles/Vol] 25.0 mmol/L 21.0-32.0 [facility] Urea nitrogen/Creatinine [Mass ratio] 21.5 mg/mg 10-20 [facility] Laboratory - Hematology and Cell countsOrdered By: Dr. Au on 05-16-2023 Erythrocyte distribution width (RBC) [Entitic vol] 52.7 fL 35.1-43.9 [facility] Erythrocyte distribution width (RBC) [Ratio] 14.5 % 11.6-14.6 [facility] Immature granulocytes/100 WBC (Bld) 0.400 % 0.0-0.9 [facility] Comment on above: IG% - Immature Granu locytes (promyelocytes, myelocytes and metamyelocytes) > 1% indicates that a LEFT SHIFT is Present. MCH (RBC) [Entitic mass] 31.4 pg 27.0-32.0 [facility] Nucleated RBC/100 WBC (Bld) [Ratio] 0 % 0-5 [facility] MCHC Auto (RBC) [Mass/Vol]Or dered By: Dr. Au on 05-16-2023 MCHC (RBC) [Mass/Vol] 31.4 g/dL 32-36 [facility] No Panel InformationOrdered By: Dr. Au on 05-16-2023 Estimated GFR (MDRD) Amer 26 mL/min >60 [facility] Comment on above: GFR Calc Estimated GFR (MDRD) Non-Af Amer 22 mL/min >60 [facility] Comment on above: Non- GFR Calc Parathyroid Hormone (Intact) 55.0 pg/mL 18.4-80.1 [facility] Total Iron Binding Capacity 231 ug/dL 250-450 [facility] No Panel InformationOrdered By: Pepe Au on 05-16-2023 31.4 pg 27.0-32.0 [facility] 14.5 % 11.6-14.6 [facility] 52.7 fl 35.1-43.9 [facility] 0.400 % 0.0-0.9 [facility] 0 % 0-5 [facility] 22 mL/min >60 [facility] 26 mL/min >60 [facility] 21.5 RATIO 10-20 [facility] 25.0 mmol/L 21.0-32.0 [facility] 231 ug/dL 250-450 [facility] 55.0 pg/mL 18.4-80.1 [facility] Platelets bldOrdered By: Dr. Au on 05-16-2023 Platelets (Bld) [#/Vol] 132 10*3/uL 150-450 [facility] Serum or plasma albumin aubree urement (mass/volume)Ordered By: Dr. Au on 05-16-2023 Albumin [Mass/Vol] 3.2 g/dL 3.2-5.0 [facility] Serum or plasma calcium aubree urement (mass/volume)Ordered By: Dr. Au on 05-16-2023 Calcium [Mass/Vol] 9.1 mg/dL 8.5-10.1 [facility] Serum or plasma creatinine m easurement (mass/volume)Ordered By: Dr. Au on 05-16-2023 Creatinine [Mass/Vol] 2.97 mg/dL 0.70-1.30 [facility] [place] Comment on above: The validity of the calculated GFR & GFRAA in patients over 70 years has not been determined. Clinical correlation is essential. Serum or plasma ferritin laurie surement (mass/volume)Ordered By: Dr. Au on 05-16-2023 Ferritin [Mass/Vol] 154 ng/mL 26-388 [facility] Serum or plasma iron saturat ion measurement (mass fraction)Ordered By: Dr. Au on 05-16-2023 Iron saturation [Mass fraction] 30.3 % 15.0-55.0 [facility] Serum or plasma urea nitroge n measurement (mass/volume)Ordered By: Dr. Au on 05-16-2023 Urea nitrogen [Mass/Vol] 64 mg/dL 7-18 [facility] No Panel Informationon 05-12 Culture Urine <10,000 cfu/ml. No Significant growth. Sensitivity not indicated. [facility] [place] Work Phone: Absolute lymphocyte countOrd ered By: Dr. Au on 04-18-2023 Lymphocytes Auto (Unsp spec) [#/Vol] 1.93 10*3/uL 0.83-4.51 [facility] Basophil percentageOrdered B y: Dr. Au on 04-18-2023 Basophil percentage 4.0 mg/dL 2.5-4.9 [facility] Basophils/100 WBC (Bld) 0.2 % 0-1 [facility] Chloride [Moles/Vol] 107 mmol/L 98-107 [facility] Eosinophils/100 WBC (Bld) 1.9 % 0-5 [facility] Glucose [Mass/Vol] 144 mg/dL 74-106 [facility] Comment on above: Fasting Glucose resu lt greater than or equal to 126 mg/dL suggests DIABETES MELLITUS per A.D.A. criteria. Neutrophils (Bld) [#/Vol] 5.7 10*3/uL 2.0-7.7 [facility] Neutrophils/100 WBC (Bld) 68.4 % 47-70 [facility] Potassium [Moles/Vol] 4.3 mmol/L 3.5-5.1 [facility] [place] Sodium [Moles/Vol] 141 mmol/L 136-145 [facility] WBC (Bld) [#/Vol] 8.4 10*3/uL 4.4-11.0 [facility] Basophil percentageOrdered B y: Pepe Au on 04-18-2023 Basophil percentage 144 mg/dL 74-106 [facility] Basophil percentage 141 mmol/L 136-145 [facility] Basophil percentage 4.3 mmol/L 3.5-5.1 [facility] Basophil percentage 107 mmol/L 98-107 [facility] Basophils (Bld) [#/Vol] 8.4 10*3/uL 4.4-11.0 [facility] Basophils (Bld) [#/Vol] 5.7 10*3/uL 2.0-7.7 [facility] Basophils/100 WBC (Bld) 68.4 % 47-70 [facility] Basophils/100 WBC (Bld) 1.9 % 0-5 [facility] Blood erythrocytes count (nu mber/volume)Ordered By: Dr. Au on 04-18-2023 RBC (Bld) [#/Vol] 3.61 10*6/uL 4.6-6.2 [facility] Blood hemoglobin measurement (mass/volume)Ordered By: Dr. Au on 04-18-2023 Hemoglobin (Bld) [Mass/Vol] 11.3 g/dL 13.0-16.5 [facility] Blood lymphocytes/100 leukoc ytesOrdered By: Dr. Au on 04-18-2023 Lymphocytes/100 WBC (Bld) 23.0 % 19-41 [facility] Blood monocytes/100 leukocyt esOrdered By: Dr. Au on 04-18-2023 Monocytes/100 WBC (Bld) 6.1 % 0-10 [facility] Blood platelet mean volumeOr dered By: Dr. Au on 04-18-2023 Platelet mean volume (Bld) [Entitic vol] 10.9 fL 6.2-12.0 [facility] Determination of erythrocyte mean corpuscular volume (MCV)Ordered By: Dr. Au on 04-18-2023 MCV (RBC) [Entitic vol] 99.2 fL 80-94 [facility] Hematocrit Auto (Bld) [Volum e fraction]Ordered By: Dr. uA on 04-18-2023 Hematocrit (Bld) [Volume fraction] 35.8 % 40-54 [facility] Iron measurement (mass/mass) Ordered By: Dr. Au on 04-18-2023 Iron (Unsp spec) [Mass/Mass] 59 ug/dL 65-175 [facility] Laboratory - Chemistry and C hemistry - challengeOrdered By: Dr. Au on 04-18-2023 CO2 [Moles/Vol] 27.0 mmol/L 21.0-32.0 [facility] Urea nitrogen/Creatinine [Mass ratio] 23.6 mg/mg 10-20 [facility] Laboratory - Hematology and Cell countsOrdered By: Dr. Au on 04-18-2023 Erythrocyte distribution width (RBC) [Entitic vol] 50.5 fL 35.1-43.9 [facility] Erythrocyte distribution width (RBC) [Ratio] 14.0 % 11.6-14.6 [facility] Immature granulocytes/100 WBC (Bld) 0.400 % 0.0-0.9 [facility] Comment on above: IG% - Immature Granu locytes (promyelocytes, myelocytes and metamyelocytes) > 1% indicates that a LEFT SHIFT is Present. MCH (RBC) [Entitic mass] 31.3 pg 27.0-32.0 [facility] Nucleated RBC/100 WBC (Bld) [Ratio] 0 % 0-5 [facility] MCHC Auto (RBC) [Mass/Vol]Or dered By: Dr. Au on 04-18-2023 MCHC (RBC) [Mass/Vol] 31.6 g/dL 32-36 [facility] [place] No Panel InformationOrdered By: Dr. Au on 04-18-2023 Estimated GFR (MDRD) Amer 25 mL/min >60 [facility] Comment on above: GFR Calc Estimated GFR (MDRD) Non-Af Amer 21 mL/min >60 [facility] Comment on above: Non- GFR Calc Total Iron Binding Capacity 244 ug/dL 250-450 [facility] No Panel InformationOrdered By: Pepe Au on 04-18-2023 31.3 pg 27.0-32.0 [facility] 14.0 % 11.6-14.6 [facility] 50.5 fl 35.1-43.9 [facility] 0.400 % 0.0-0.9 [facility] 0 % 0-5 [facility] 21 mL/min >60 [facility] 25 mL/min >60 [facility] 23.6 RATIO 10-20 [facility] 27.0 mmol/L 21.0-32.0 [facility] 244 ug/dL 250-450 [facility] Platelets bldOrdered By: Dr. Au on 04-18-2023 Platelets (Bld) [#/Vol] 136 10*3/uL 150-450 [facility] Serum or plasma albumin aubree urement (mass/volume)Ordered By: Dr. Au on 04-18-2023 Albumin [Mass/Vol] 3.2 g/dL 3.2-5.0 [facility] Serum or plasma calcium aubree urement (mass/volume)Ordered By: Dr. Au on 04-18-2023 Calcium [Mass/Vol] 8.9 mg/dL 8.5-10.1 [facility] Serum or plasma creatinine m easurement (mass/volume)Ordered By: Dr. Au on 04-18-2023 Creatinine [Mass/Vol] 3.09 mg/dL 0.70-1.30 [facility] [place] Comment on above: The validity of the calculated GFR & GFRAA in patients over 70 years has not been determined. Clinical correlation is essential. Serum or plasma ferritin laurie surement (mass/volume)Ordered By: Dr. Au on 04-18-2023 Ferritin [Mass/Vol] 184 ng/mL 26-388 [facility] Serum or plasma iron saturat ion measurement (mass fraction)Ordered By: Dr. Au on 04-18-2023 Iron saturation [Mass fraction] 24.2 % 15.0-55.0 [facility] Serum or plasma urea nitroge n measurement (mass/volume)Ordered By: Dr. Au on 04-18-2023 Urea nitrogen [Mass/Vol] 73 mg/dL 7-18 [facility] Absolute lymphocyte countOrd ered By: Dr. Au on 03-21-2023 Lymphocytes Auto (Unsp spec) [#/Vol] 2.09 10*3/uL 0.83-4.51 [facility] Basophil percentageOrdered B y: Dr. Au on 03-21-2023 Basophil percentage 3.2 mg/dL 2.5-4.9 [facility] Basophils/100 WBC (Bld) 0.6 % 0-1 [facility] Chloride [Moles/Vol] 107 mmol/L 98-107 [facility] Eosinophils/100 WBC (Bld) 3.1 % 0-5 [facility] Glucose [Mass/Vol] 151 mg/dL 74-106 [facility] Comment on above: Fasting Glucose resu lt greater than or equal to 126 mg/dL suggests DIABETES MELLITUS per A.D.A. criteria. Neutrophils (Bld) [#/Vol] 6.0 10*3/uL 2.0-7.7 [facility] Neutrophils/100 WBC (Bld) 66.3 % 47-70 [facility] Potassium [Moles/Vol] 4.4 mmol/L 3.5-5.1 [facility] [place] Sodium [Moles/Vol] 137 mmol/L 136-145 [facility] WBC (Bld) [#/Vol] 9.1 10*3/uL 4.4-11.0 [facility] Basophil percentageOrdered B y: Pepe Au on 03-21-2023 Basophil percentage 151 mg/dL 74-106 [facility] Basophil percentage 137 mmol/L 136-145 [facility] Basophil percentage 4.4 mmol/L 3.5-5.1 [facility] Basophil percentage 107 mmol/L 98-107 [facility] Basophils (Bld) [#/Vol] 9.1 10*3/uL 4.4-11.0 [facility] Basophils (Bld) [#/Vol] 6.0 10*3/uL 2.0-7.7 [facility] Basophils/100 WBC (Bld) 66.3 % 47-70 [facility] Basophils/100 WBC (Bld) 3.1 % 0-5 [facility] Blood erythrocytes count (nu mber/volume)Ordered By: Dr. Au on 03-21-2023 RBC (Bld) [#/Vol] 3.57 10*6/uL 4.6-6.2 [facility] Blood hemoglobin measurement (mass/volume)Ordered By: Dr. Au on 03-21-2023 Hemoglobin (Bld) [Mass/Vol] 11.3 g/dL 13.0-16.5 [facility] Blood lymphocytes/100 leukoc ytesOrdered By: Dr. Au on 03-21-2023 Lymphocytes/100 WBC (Bld) 23.0 % 19-41 [facility] Blood monocytes/100 leukocyt esOrdered By: Dr. Au on 03-21-2023 Monocytes/100 WBC (Bld) 6.7 % 0-10 [facility] Blood platelet mean volumeOr dered By: Dr. Au on 03-21-2023 Platelet mean volume (Bld) [Entitic vol] 10.1 fL 6.2-12.0 [facility] Determination of erythrocyte mean corpuscular volume (MCV)Ordered By: Dr. Au on 03-21-2023 MCV (RBC) [Entitic vol] 100.0 fL 80-94 [facility] Hematocrit Auto (Bld) [Volum e fraction]Ordered By: Dr. Au on 03-21-2023 Hematocrit (Bld) [Volume fraction] 35.7 % 40-54 [facility] Iron measurement (mass/mass) Ordered By: Dr. Au on 03-21-2023 Iron (Unsp spec) [Mass/Mass] 88 ug/dL 65-175 [facility] Laboratory - Chemistry and C hemistry - challengeOrdered By: Dr. Au on 03-21-2023 CO2 [Moles/Vol] 27.0 mmol/L 21.0-32.0 [facility] Urea nitrogen/Creatinine [Mass ratio] 23.1 mg/mg 10-20 [facility] Laboratory - Hematology and Cell countsOrdered By: Dr. Au on 04-24-2023 Erythrocyte distribution width (RBC) [Entitic vol] 52.0 fL 35.1-43.9 [facility] Erythrocyte distribution width (RBC) [Ratio] 14.2 % 11.6-14.6 [facility] Immature granulocytes/100 WBC (Bld) 0.300 % 0.0-0.9 [facility] Comment on above: IG% - Immature Granu locytes (promyelocytes, myelocytes and metamyelocytes) > 1% indicates that a LEFT SHIFT is Present. MCH (RBC) [Entitic mass] 31.7 pg 27.0-32.0 [facility] Nucleated RBC/100 WBC (Bld) [Ratio] 0 % 0-5 [facility] MCHC Auto (RBC) [Mass/Vol]Or dered By: Dr. Au on 03-21-2023 MCHC (RBC) [Mass/Vol] 31.7 g/dL 32-36 [facility] [place] No Panel InformationOrdered By: Dr. Au on 03-21-2023 Estimated GFR (MDRD) Amer 28 mL/min >60 [facility] Comment on above: GFR Calc Estimated GFR (MDRD) Non-Af Amer 23 mL/min >60 [facility] Comment on above: Non- GFR Calc Parathyroid Hormone (Intact) 35.6 pg/mL 18.4-80.1 [facility] Total Iron Binding Capacity 224 ug/dL 250-450 [facility] No Panel InformationOrdered By: Pepe Au on 03-21-2023 31.7 pg 27.0-32.0 [facility] 14.2 % 11.6-14.6 [facility] 52.0 fl 35.1-43.9 [facility] 0.300 % 0.0-0.9 [facility] 0 % 0-5 [facility] 23 mL/min >60 [facility] 28 mL/min >60 [facility] 23.1 RATIO 10-20 [facility] 27.0 mmol/L 21.0-32.0 [facility] 224 ug/dL 250-450 [facility] 35.6 pg/mL 18.4-80.1 [facility] Platelets bldOrdered By: Dr. Au on 04-24-2023 Platelets (Bld) [#/Vol] 130 10*3/uL 150-450 [facility] Serum or plasma albumin aubree urement (mass/volume)Ordered By: Dr. Au on 03-21-2023 Albumin [Mass/Vol] 3.3 g/dL 3.2-5.0 [facility] Serum or plasma calcium aubree urement (mass/volume)Ordered By: Dr. Au on 03-21-2023 Calcium [Mass/Vol] 9.6 mg/dL 8.5-10.1 [facility] Serum or plasma creatinine m easurement (mass/volume)Ordered By: Dr. Au on 03-21-2023 Creatinine [Mass/Vol] 2.81 mg/dL 0.70-1.30 [facility] [place] Comment on above: The validity of the calculated GFR & GFRAA in patients over 70 years has not been determined. Clinical correlation is essential. Serum or plasma ferritin laurie surement (mass/volume)Ordered By: Dr. Au on 03-21-2023 Ferritin [Mass/Vol] 178 ng/mL 26-388 [facility] Serum or plasma iron saturat ion measurement (mass fraction)Ordered By: Dr. Au on 03-21-2023 Iron saturation [Mass fraction] 39.3 % 15.0-55.0 [facility] Serum or plasma urea nitroge n measurement (mass/volume)Ordered By: Dr. Au on 03-21-2023 Urea nitrogen [Mass/Vol] 65 mg/dL 7-18 [facility] Basophil percentageOrdered B y: Dr. Au on 02-21-2023 Basophil percentage 2.8 mg/dL 2.5-4.9 [facility] Bilirubin [Mass/Vol] 0.70 mg/dL 0.20-1.00 [facility] Comment on above: For patients on eltr ombopag therapy, use of Dimension [place] TBIL is not recommended. Chloride [Moles/Vol] 107 mmol/L 98-107 [facility] Cholesterol [Mass/Vol] 88 mg/dL <[address] [facility] Comment on above: <200 mg/dL Desirable 200-240 mg/dL Borderline >240 mg/dL High Risk Glucose [Mass/Vol] 167 mg/dL 74-106 [facility] Comment on above: Fasting Glucose resu lt greater than or equal to 126 mg/dL suggests DIABETES MELLITUS per A.D.A. criteria. Potassium [Moles/Vol] 4.3 mmol/L 3.5-5.1 [facility] [place] Protein [Mass/Vol] 7.6 g/dL 6.4-8.2 [facility] Sodium [Moles/Vol] 137 mmol/L 136-145 [facility] Triglyceride [Mass/Vol] 93 mg/dL <199 [facility] Comment on above: The drugs N-Acetylcy steine and Metamizole may falsely depress this assay.Serum Triglycerides Reference Interval Normal <150 mg/dL Borderline high 150 - 199 mg/dL High 200 - 499 mg/dL Very High > or = 500 mg/dL WBC (Bld) [#/Vol] 8.7 10*3/uL 4.4-11.0 [facility] Blood erythrocytes count (nu mber/volume)Ordered By: Dr. Au on 02-21-2023 RBC (Bld) [#/Vol] 3.38 10*6/uL 4.6-6.2 [facility] Blood hemoglobin measurement (mass/volume)Ordered By: Dr. uA on 02-21-2023 Hemoglobin (Bld) [Mass/Vol] 10.7 g/dL 13.0-16.5 [facility] Blood platelet mean volumeOr dered By: Dr. Au on 02-21-2023 Platelet mean volume (Bld) [Entitic vol] 10.6 fL 6.2-12.0 [facility] Determination of erythrocyte mean corpuscular volume (MCV)Ordered By: Dr. Au on 02-21-2023 MCV (RBC) [Entitic vol] 98.2 fL 80-94 [facility] Hematocrit Auto (Bld) [Volum e fraction]Ordered By: Dr. Au on 02-21-2023 Hematocrit (Bld) [Volume fraction] 33.2 % 40-54 [facility] Iron measurement (mass/mass) Ordered By: Dr. Au on 02-21-2023 Iron (Unsp spec) [Mass/Mass] 49 ug/dL 65-175 [facility] Laboratory - Chemistry and C hemistry - challengeOrdered By: Dr. Au on 02-21-2023 ALP [Catalytic activity/Vol] 137 U/L 45-117 [facility] ALT [Catalytic activity/Vol] 14 U/L 16-61 [facility] CO2 [Moles/Vol] 24.0 mmol/L 21.0-32.0 [facility] Globulin (S) [Mass/Vol] 4.5 g/dL 2.2-4.2 [facility] Urea nitrogen/Creatinine [Mass ratio] 17.2 mg/mg 10-20 [facility] Laboratory - Hematology and Cell countsOrdered By: Dr. Au on 02-21-2023 Erythrocyte distribution width (RBC) [Entitic vol] 52.2 fL 35.1-43.9 [facility] Erythrocyte distribution width (RBC) [Ratio] 14.5 % 11.6-14.6 [facility] MCH (RBC) [Entitic mass] 31.7 pg 27.0-32.0 [facility] MCHC Auto (RBC) [Mass/Vol]Or dered By: Dr. Au on 02-21-2023 MCHC (RBC) [Mass/Vol] 32.2 g/dL 32-36 [facility] [place] No Panel InformationOrdered By: Dr. Au on 02-21-2023 Estimated GFR (MDRD) Amer 23 mL/min >60 [facility] Comment on above: GFR Calc Estimated GFR (MDRD) Non-Af Amer 19 mL/min >60 [facility] Comment on above: Non- GFR Calc Thyroid Stimulating Hormone (TSH) 4.77 uIU/mL 0.358-3.74 [facility] Total Iron Binding Capacity 201 ug/dL 250-450 [facility] Platelets bldOrdered By: Dr. Au on 02-21-2023 Platelets (Bld) [#/Vol] 147 10*3/uL 150-450 [facility] Serum or plasma albumin aubree urement (mass/volume)Ordered By: Dr. Au on 02-21-2023 Albumin [Mass/Vol] 3.1 g/dL 3.2-5.0 [facility] Serum or plasma albumin/glob ulin mass ratioOrdered By: Dr. Au on 03-27-2023 Albumin/Globulin [Mass ratio] 0.7 {ratio} 0.9-2.4 [facility] Serum or plasma calcium aubree urement (mass/volume)Ordered By: Dr. Au on 02-21-2023 Calcium [Mass/Vol] 8.5 mg/dL 8.5-10.1 [facility] Serum or plasma cholesterol in HDL measurement (mass/volume)Ordered By: Dr. Au on 02-21-2023 Cholesterol in HDL [Mass/Vol] 30 mg/dL >40 [facility] Comment on above: The drugs N-Acetylcy steine and Metamizole may falsely depress this assay. Reference Range HDL <40 mg/dL Low HDL Cholesterol HDL >or= 60 mg/dL High HDL Cholesterol Serum or plasma cholesterol in VLDL measurement (mass/volume)Ordered By: Dr. Au on 02-21-2023 Cholesterol in VLDL [Mass/Vol] 19 mg/dL 5-40 [facility] Serum or plasma creatinine m easurement (mass/volume)Ordered By: Dr. Au on 02-21-2023 Creatinine [Mass/Vol] 3.37 mg/dL 0.70-1.30 [facility] [place] Comment on above: The validity of the calculated GFR & GFRAA in patients over 70 years has not been determined. Clinical correlation is essential. Serum or plasma ferritin laurie surement (mass/volume)Ordered By: Dr. Au on 02-21-2023 Ferritin [Mass/Vol] 167 ng/mL 26-388 [facility] Serum or plasma iron saturat ion measurement (mass fraction)Ordered By: Dr. Au on 02-21-2023 Iron saturation [Mass fraction] 24.4 % 15.0-55.0 [facility] Serum or plasma low density lipoprotein (LDL) cholesterol measurement (mass/volume)Ordered By: Dr. Au on 02-21-2023 Cholesterol in LDL [Mass/Vol] 39 mg/dL 0-130 [facility] Serum or plasma urea nitroge n measurement (mass/volume)Ordered By: Dr. Au on 02-21-2023 Urea nitrogen [Mass/Vol] 58 mg/dL 7-18 [facility] Thin prep Papanicolaou smear with manual screeningOrdered By: Dr. Au on 02-21-2023 Thin prep Papanicolaou smear with manual screening 14 U/L 15-37 [facility] Thin prep Papanicolaou smear with manual screening 6 5-15 [facility] Whole blood hemoglobin A1c/t otal hemoglobin ratio (mass fraction)Ordered By: Dr. Au on 02-21-2023 HbA1c (Bld) [Mass fraction] 5.6 % 3.8-5.6 [facility] Comment on above: Normal < 5.7 % Predi abetic 5.7 - 6.4 % Diabetic >or= 6.5 % Please note range changes. Absolute lymphocyte countOrd ered By: Dr. Au on 01-31-2023 Lymphocytes Auto (Unsp spec) [#/Vol] 1.94 10*3/uL 0.83-4.51 [facility] Basophil percentageOrdered B y: Dr. Au on 01-31-2023 Basophil percentage 4.1 mg/dL 2.5-4.9 [facility] Basophils/100 WBC (Bld) 0.5 % 0-1 [facility] Chloride [Moles/Vol] 103 mmol/L 98-107 [facility] Eosinophils/100 WBC (Bld) 3.3 % 0-5 [facility] Glucose [Mass/Vol] 145 mg/dL 74-106 [facility] Comment on above: Fasting Glucose resu lt greater than or equal to 126 mg/dL suggests DIABETES MELLITUS per A.D.A. criteria. Neutrophils (Bld) [#/Vol] 6.1 10*3/uL 2.0-7.7 [facility] Neutrophils/100 WBC (Bld) 67.5 % 47-70 [facility] Potassium [Moles/Vol] 4.6 mmol/L 3.5-5.1 [facility] [place] Sodium [Moles/Vol] 139 mmol/L 136-145 [facility] WBC (Bld) [#/Vol] 9.1 10*3/uL 4.4-11.0 [facility] Blood erythrocytes count (nu mber/volume)Ordered By: Dr. Au on 01-31-2023 RBC (Bld) [#/Vol] 3.74 10*6/uL 4.6-6.2 [facility] Blood hemoglobin measurement (mass/volume)Ordered By: Dr. Au on 01-31-2023 Hemoglobin (Bld) [Mass/Vol] 11.7 g/dL 13.0-16.5 [facility] Blood lymphocytes/100 leukoc ytesOrdered By: Dr. Au on 01-31-2023 Lymphocytes/100 WBC (Bld) 21.3 % 19-41 [facility] Blood monocytes/100 leukocyt esOrdered By: Dr. Au on 01-31-2023 Monocytes/100 WBC (Bld) 6.9 % 0-10 [facility] Blood platelet mean volumeOr dered By: Dr. Au on 01-31-2023 Platelet mean volume (Bld) [Entitic vol] 10.4 fL 6.2-12.0 [facility] Determination of erythrocyte mean corpuscular volume (MCV)Ordered By: Dr. Au on 01-31-2023 MCV (RBC) [Entitic vol] 100.0 fL 80-94 [facility] Hematocrit Auto (Bld) [Volum e fraction]Ordered By: Dr. Au on 01-31-2023 Hematocrit (Bld) [Volume fraction] 37.4 % 40-54 [facility] Iron measurement (mass/mass) Ordered By: Dr. Au on 01-31-2023 Iron (Unsp spec) [Mass/Mass] 65 ug/dL 65-175 [facility] Laboratory - Chemistry and C hemistry - challengeOrdered By: Dr. Au on 01-31-2023 CO2 [Moles/Vol] 29.0 mmol/L 21.0-32.0 [facility] Urea nitrogen/Creatinine [Mass ratio] 22.1 mg/mg 10-20 [facility] Laboratory - Hematology and Cell countsOrdered By: Dr. Au on 01-31-2023 Erythrocyte distribution width (RBC) [Entitic vol] 51.0 fL 35.1-43.9 [facility] Erythrocyte distribution width (RBC) [Ratio] 14.3 % 11.6-14.6 [facility] Immature granulocytes/100 WBC (Bld) 0.500 % 0.0-0.9 [facility] Comment on above: IG% - Immature Granu locytes (promyelocytes, myelocytes and metamyelocytes) > 1% indicates that a LEFT SHIFT is Present. MCH (RBC) [Entitic mass] 31.3 pg 27.0-32.0 [facility] Nucleated RBC/100 WBC (Bld) [Ratio] 0 % 0-5 [facility] MCHC Auto (RBC) [Mass/Vol]Or dered By: Dr. Au on 01-31-2023 MCHC (RBC) [Mass/Vol] 31.3 g/dL 32-36 [facility] [place] No Panel InformationOrdered By: Dr. Au on 01-31-2023 Estimated GFR (MDRD) Amer 29 mL/min >60 [facility] Comment on above: GFR Calc Estimated GFR (MDRD) Non-Af Amer 24 mL/min >60 [facility] Comment on above: Non- GFR Calc Parathyroid Hormone (Intact) 32.8 pg/mL 18.4-80.1 [facility] Total Iron Binding Capacity 265 ug/dL 250-450 [facility] Platelets bldOrdered By: Dr. Au on 01-31-2023 Platelets (Bld) [#/Vol] 167 10*3/uL 150-450 [facility] Serum or plasma albumin aubree urement (mass/volume)Ordered By: Dr. Au on 01-31-2023 Albumin [Mass/Vol] 3.1 g/dL 3.2-5.0 [facility] Serum or plasma calcium aubree urement (mass/volume)Ordered By: Dr. Au on 01-31-2023 Calcium [Mass/Vol] 9.6 mg/dL 8.5-10.1 [facility] Serum or plasma creatinine m easurement (mass/volume)Ordered By: Dr. Au on 01-31-2023 Creatinine [Mass/Vol] 2.76 mg/dL 0.70-1.30 [facility] [place] Comment on above: The validity of the calculated GFR & GFRAA in patients over 70 years has not been determined. Clinical correlation is essential. Serum or plasma ferritin laurie surement (mass/volume)Ordered By: Dr. Au on 01-31-2023 Ferritin [Mass/Vol] 191 ng/mL 26-388 [facility] Serum or plasma iron saturat ion measurement (mass fraction)Ordered By: Dr. Au on 01-31-2023 Iron saturation [Mass fraction] 24.5 % 15.0-55.0 [facility] Serum or plasma urea nitroge n measurement (mass/volume)Ordered By: Dr. Au on 01-31-2023 Urea nitrogen [Mass/Vol] 61 mg/dL 7-18 [facility] Serum or plasma uric acid me asurement (mass/volume)Ordered By: Dr. Au on 01-31-2023 Urate [Mass/Vol] 6.2 mg/dL 3.5-7.2 [facility] Comment on above: The drugs N-Acetylcy steine and Metamizole may falsely depress this assay. Urine creatinine measurement (mass/volume)Ordered By: Dr. Au on 01-31-2023 Creatinine (U) [Mass/Vol] 119.00 mg/dL NO RANGE EST. [facility] Urine protein measurement (m ass/volume)Ordered By: Dr. Au on 01-31-2023 Protein (U) [Mass/Vol] 64.8 mg/dL 0.0-11.[address] [facility] Urine protein/creatinine mas s ratioOrdered By: Dr. Au on 01-31-2023 Protein/Creatinine (U) [Mass ratio] 545 mg/g CRE 0-200 [facility] Absolute lymphocyte countOrd ered By: Dr. Au on 01-24-2023 Lymphocytes Auto (Unsp spec) [#/Vol] 1.96 10*3/uL 0.83-4.51 [facility] Basophil percentageOrdered B y: Dr. Au on 01-24-2023 Basophil percentage 3.7 mg/dL 2.5-4.9 [facility] Basophils/100 WBC (Bld) 0.4 % 0-1 [facility] Chloride [Moles/Vol] 105 mmol/L 98-107 [facility] Eosinophils/100 WBC (Bld) 2.6 % 0-5 [facility] Glucose [Mass/Vol] 182 mg/dL 74-106 [facility] Comment on above: Fasting Glucose resu lt greater than or equal to 126 mg/dL suggests DIABETES MELLITUS per A.D.A. criteria. Neutrophils (Bld) [#/Vol] 6.3 10*3/uL 2.0-7.7 [facility] Neutrophils/100 WBC (Bld) 69.4 % 47-70 [facility] Potassium [Moles/Vol] 4.7 mmol/L 3.5-5.1 [facility] Sodium [Moles/Vol] 141 mmol/L 136-145 [facility] WBC (Bld) [#/Vol] 9.1 10*3/uL 4.4-11.0 [facility] Blood erythrocytes count (nu mber/volume)Ordered By: Dr. Au on 01-24-2023 RBC (Bld) [#/Vol] 3.46 10*6/uL 4.6-6.2 [facility] Blood hemoglobin measurement (mass/volume)Ordered By: Dr. Au on 01-24-2023 Hemoglobin (Bld) [Mass/Vol] 10.9 g/dL 13.0-16.5 [facility] Blood lymphocytes/100 leukoc ytesOrdered By: Dr. Au on 01-24-2023 Lymphocytes/100 WBC (Bld) 21.4 % 19-41 [facility] Blood monocytes/100 leukocyt esOrdered By: Dr. Au on 01-24-2023 Monocytes/100 WBC (Bld) 5.8 % 0-10 [facility] Blood platelet mean volumeOr dered By: Dr. Au on 01-24-2023 Platelet mean volume (Bld) [Entitic vol] 10.3 fL 6.2-12.0 [facility] Determination of erythrocyte mean corpuscular volume (MCV)Ordered By: Dr. Au on 01-24-2023 MCV (RBC) [Entitic vol] 98.8 fL 80-94 [facility] Hematocrit Auto (Bld) [Volum e fraction]Ordered By: Dr. Au on 01-24-2023 Hematocrit (Bld) [Volume fraction] 34.2 % 40-54 [facility] Iron measurement (mass/mass) Ordered By: Dr. Au on 01-24-2023 Iron (Unsp spec) [Mass/Mass] 68 ug/dL 65-175 [facility] Laboratory - Chemistry and C hemistry - challengeOrdered By: Dr. Au on 01-24-2023 CO2 [Moles/Vol] 28.0 mmol/L 21.0-32.0 [facility] Urea nitrogen/Creatinine [Mass ratio] 22.6 mg/mg 10-20 [facility] Laboratory - Hematology and Cell countsOrdered By: Dr. Au on 01-24-2023 Erythrocyte distribution width (RBC) [Entitic vol] 50.6 fL 35.1-43.9 [facility] Erythrocyte distribution width (RBC) [Ratio] 14.2 % 11.6-14.6 [facility] Immature granulocytes/100 WBC (Bld) 0.400 % 0.0-0.9 [facility] Comment on above: IG% - Immature Granu locytes (promyelocytes, myelocytes and metamyelocytes) > 1% indicates that a LEFT SHIFT is Present. MCH (RBC) [Entitic mass] 31.5 pg 27.0-32.0 [facility] Nucleated RBC/100 WBC (Bld) [Ratio] 0 % 0-5 [facility] MCHC Auto (RBC) [Mass/Vol]Or dered By: Dr. Au on 01-24-2023 MCHC (RBC) [Mass/Vol] 31.9 g/dL 32-36 [facility] [place] No Panel InformationOrdered By: Dr. Au on 01-24-2023 Estimated GFR (MDRD) Amer 30 mL/min >60 [facility] Comment on above: GFR Calc Estimated GFR (MDRD) Non-Af Amer 25 mL/min >60 [facility] Comment on above: Non- GFR Calc Total Iron Binding Capacity 202 ug/dL 250-450 [facility] Platelets bldOrdered By: Dr. Au on 01-24-2023 Platelets (Bld) [#/Vol] 149 10*3/uL 150-450 [facility] Serum or plasma albumin aubree urement (mass/volume)Ordered By: Dr. Au on 01-24-2023 Albumin [Mass/Vol] 3.0 g/dL 3.2-5.0 [facility] Serum or plasma calcium aubree urement (mass/volume)Ordered By: Dr. Au on 01-24-2023 Calcium [Mass/Vol] 9.5 mg/dL 8.5-10.1 [facility] Serum or plasma creatinine m easurement (mass/volume)Ordered By: Dr. Au on 01-24-2023 Creatinine [Mass/Vol] 2.65 mg/dL 0.70-1.30 [facility] [place] Comment on above: The validity of the calculated GFR & GFRAA in patients over 70 years has not been determined. Clinical correlation is essential. Serum or plasma ferritin laurie surement (mass/volume)Ordered By: Dr. Au on 01-24-2023 Ferritin [Mass/Vol] 191 ng/mL 26-388 [facility] Serum or plasma iron saturat ion measurement (mass fraction)Ordered By: Dr. Au on 01-24-2023 Iron saturation [Mass fraction] 33.7 % 15.0-55.0 [facility] Serum or plasma urea nitroge n measurement (mass/volume)Ordered By: Dr. Au on 01-24-2023 Urea nitrogen [Mass/Vol] 60 mg/dL 7-18 [facility] Absolute lymphocyte countOrd ered By: Dr. Au on 12-28-2022 Lymphocytes Auto (Unsp spec) [#/Vol] 1.99 10*3/uL 0.83-4.51 [facility] Basophil percentageOrdered B y: Dr. Au on 12-28-2022 Basophil percentage 3.9 mg/dL 2.5-4.9 [facility] Basophils/100 WBC (Bld) 0.2 % 0-1 [facility] Chloride [Moles/Vol] 107 mmol/L 98-107 [facility] Eosinophils/100 WBC (Bld) 3.0 % 0-5 [facility] Glucose [Mass/Vol] 214 mg/dL 74-106 [facility] Comment on above: Glucose result great er than or equal to 200 mg/dLsuggests DIABETES MELLITUS per A.D.A. criteria. Neutrophils (Bld) [#/Vol] 6.4 10*3/uL 2.0-7.7 [facility] Neutrophils/100 WBC (Bld) 68.1 % 47-70 [facility] Potassium [Moles/Vol] 4.3 mmol/L 3.5-5.1 [facility] [place] Sodium [Moles/Vol] 141 mmol/L 136-145 [facility] WBC (Bld) [#/Vol] 9.4 10*3/uL 4.4-11.0 [facility] Blood erythrocytes count (nu mber/volume)Ordered By: Dr. Au on 12-28-2022 RBC (Bld) [#/Vol] 3.66 10*6/uL 4.6-6.2 [facility] Blood hemoglobin measurement (mass/volume)Ordered By: Dr. Au on 12-28-2022 Hemoglobin (Bld) [Mass/Vol] 11.5 g/dL 13.0-16.5 [facility] Blood lymphocytes/100 leukoc ytesOrdered By: Dr. Au on 12-28-2022 Lymphocytes/100 WBC (Bld) 21.3 % 19-41 [facility] Blood monocytes/100 leukocyt esOrdered By: Dr. Au on 12-28-2022 Monocytes/100 WBC (Bld) 7.1 % 0-10 [facility] Blood platelet mean volumeOr dered By: Dr. Au on 12-28-2022 Platelet mean volume (Bld) [Entitic vol] 10.4 fL 6.2-12.0 [facility] Determination of erythrocyte mean corpuscular volume (MCV)Ordered By: Dr. Au on 12-28-2022 MCV (RBC) [Entitic vol] 97.0 fL 80-94 [facility] Hematocrit Auto (Bld) [Volum e fraction]Ordered By: Dr. Au on 12-28-2022 Hematocrit (Bld) [Volume fraction] 35.5 % 40-54 [facility] Iron measurement (mass/mass) Ordered By: Dr. Au on 12-28-2022 Iron (Unsp spec) [Mass/Mass] 54 ug/dL 65-175 [facility] Laboratory - Chemistry and C hemistry - challengeOrdered By: Dr. Au on 12-28-2022 CO2 [Moles/Vol] 28.0 mmol/L 21.0-32.0 [facility] Urea nitrogen/Creatinine [Mass ratio] 23.6 mg/mg 10-20 [facility] Laboratory - Hematology and Cell countsOrdered By: Dr. Au on 12-28-2022 Erythrocyte distribution width (RBC) [Entitic vol] 50.2 fL 35.1-43.9 [facility] Erythrocyte distribution width (RBC) [Ratio] 14.3 % 11.6-14.6 [facility] Immature granulocytes/100 WBC (Bld) 0.300 % 0.0-0.9 [facility] Comment on above: IG% - Immature Granu locytes (promyelocytes, myelocytes and metamyelocytes) > 1% indicates that a LEFT SHIFT is Present. MCH (RBC) [Entitic mass] 31.4 pg 27.0-32.0 [facility] Nucleated RBC/100 WBC (Bld) [Ratio] 0 % 0-5 [facility] MCHC Auto (RBC) [Mass/Vol]Or dered By: Dr. uA on 12-28-2022 MCHC (RBC) [Mass/Vol] 32.4 g/dL 32-36 [facility] [place] No Panel InformationOrdered By: Dr. Au on 12-28-2022 Estimated GFR (MDRD) Amer 30 mL/min >60 [facility] Comment on above: GFR Calc Estimated GFR (MDRD) Non-Af Amer 25 mL/min >60 [facility] Comment on above: Non- GFR Calc Total Iron Binding Capacity 244 ug/dL 250-450 [facility] Platelets bldOrdered By: Dr. Au on 12-28-2022 Platelets (Bld) [#/Vol] 148 10*3/uL 150-450 [facility] Serum or plasma albumin aubree urement (mass/volume)Ordered By: Dr. Au on 12-28-2022 Albumin [Mass/Vol] 3.1 g/dL 3.2-5.0 [facility] Serum or plasma calcium aubree urement (mass/volume)Ordered By: Dr. Au on 12-28-2022 Calcium [Mass/Vol] 9.7 mg/dL 8.5-10.1 [facility] Serum or plasma creatinine m easurement (mass/volume)Ordered By: Dr. Au on 12-28-2022 Creatinine [Mass/Vol] 2.63 mg/dL 0.70-1.30 [facility] Comment on above: The validity of the calculated GFR & GFRAA in patients over 70 years has not been determined. Clinical correlation is essential. Serum or plasma ferritin laurie surement (mass/volume)Ordered By: Dr. Au on 12-28-2022 Ferritin [Mass/Vol] 193 ng/mL 26-388 [facility] Serum or plasma iron saturat ion measurement (mass fraction)Ordered By: Dr. Au on 12-28-2022 Iron saturation [Mass fraction] 22.1 % 15.0-55.0 [facility] Serum or plasma urea nitroge n measurement (mass/volume)Ordered By: Dr. Au on 12-28-2022 Urea nitrogen [Mass/Vol] 62 mg/dL 7-18 [facility] Absolute lymphocyte countOrd ered By: Dr. Au on 12-02-2022 Lymphocytes Auto (Unsp spec) [#/Vol] 1.85 10*3/uL 0.83-4.51 [facility] Basophil percentageOrdered B y: Dr. Au on 12-02-2022 Basophil percentage 3.8 mg/dL 2.5-4.9 [facility] Basophils/100 WBC (Bld) 0.4 % 0-1 [facility] Chloride [Moles/Vol] 108 mmol/L 98-107 [facility] Eosinophils/100 WBC (Bld) 2.8 % 0-5 [facility] Glucose [Mass/Vol] 180 mg/dL 74-106 [facility] Comment on above: Fasting Glucose resu lt greater than or equal to 126 mg/dL suggests DIABETES MELLITUS per A.D.A. criteria. Neutrophils (Bld) [#/Vol] 5.7 10*3/uL 2.0-7.7 [facility] Neutrophils/100 WBC (Bld) 67.2 % 47-70 [facility] Potassium [Moles/Vol] 4.3 mmol/L 3.5-5.1 [facility] [place] Sodium [Moles/Vol] 142 mmol/L 136-145 [facility] WBC (Bld) [#/Vol] 8.5 10*3/uL 4.4-11.0 [facility] Blood erythrocytes count (nu mber/volume)Ordered By: Dr. Au on 12-02-2022 RBC (Bld) [#/Vol] 3.44 10*6/uL 4.6-6.2 [facility] Blood hemoglobin measurement (mass/volume)Ordered By: Dr. Au on 12-02-2022 Hemoglobin (Bld) [Mass/Vol] 11.0 g/dL 13.0-16.5 [facility] Blood lymphocytes/100 leukoc ytesOrdered By: Dr. Au on 12-02-2022 Lymphocytes/100 WBC (Bld) 21.8 % 19-41 [facility] Blood monocytes/100 leukocyt esOrdered By: Dr. Au on 12-02-2022 Monocytes/100 WBC (Bld) 7.4 % 0-10 [facility] Blood platelet mean volumeOr dered By: Dr. Au on 12-02-2022 Platelet mean volume (Bld) [Entitic vol] 10.4 fL 6.2-12.0 [facility] Determination of erythrocyte mean corpuscular volume (MCV)Ordered By: Dr. Au on 12-02-2022 MCV (RBC) [Entitic vol] 98.3 fL 80-94 [facility] Hematocrit Auto (Bld) [Volum e fraction]Ordered By: Dr. Au on 12-02-2022 Hematocrit (Bld) [Volume fraction] 33.8 % 40-54 [facility] Iron measurement (mass/mass) Ordered By: Dr. Au on 12-02-2022 Iron (Unsp spec) [Mass/Mass] 64 ug/dL 65-175 [facility] Laboratory - Chemistry and C hemistry - challengeOrdered By: Dr. Au on 12-02-2022 CO2 [Moles/Vol] 31.0 mmol/L 21.0-32.0 [facility] Urea nitrogen/Creatinine [Mass ratio] 23.0 mg/mg 10-20 [facility] Laboratory - Hematology and Cell countsOrdered By: Dr. Au on 12-02-2022 Erythrocyte distribution width (RBC) [Entitic vol] 51.8 fL 35.1-43.9 [facility] Erythrocyte distribution width (RBC) [Ratio] 14.4 % 11.6-14.6 [facility] Immature granulocytes/100 WBC (Bld) 0.400 % 0.0-0.9 [facility] Comment on above: IG% - Immature Granu locytes (promyelocytes, myelocytes and metamyelocytes) > 1% indicates that a LEFT SHIFT is Present. MCH (RBC) [Entitic mass] 32.0 pg 27.0-32.0 [facility] Nucleated RBC/100 WBC (Bld) [Ratio] 0 % 0-5 [facility] MCHC Auto (RBC) [Mass/Vol]Or dered By: Dr. Au on 12-02-2022 MCHC (RBC) [Mass/Vol] 32.5 g/dL 32-36 [facility] [place] No Panel InformationOrdered By: Dr. Au on 12-02-2022 Estimated GFR (MDRD) Amer 29 mL/min >60 [facility] Comment on above: GFR Calc Estimated GFR (MDRD) Non-Af Amer 24 mL/min >60 [facility] Comment on above: Non- GFR Calc Parathyroid Hormone (Intact) 16.7 pg/mL 18.4-80.1 [facility] Total Iron Binding Capacity 230 ug/dL 250-450 [facility] Platelets bldOrdered By: Dr. Au on 12-02-2022 Platelets (Bld) [#/Vol] 158 10*3/uL 150-450 [facility] Serum or plasma albumin aubree urement (mass/volume)Ordered By: Dr. Au on 12-02-2022 Albumin [Mass/Vol] 3.4 g/dL 3.2-5.0 [facility] Serum or plasma calcium aubree urement (mass/volume)Ordered By: Dr. Au on 12-02-2022 Calcium [Mass/Vol] 10.0 mg/dL 8.5-10.1 [facility] Serum or plasma creatinine m easurement (mass/volume)Ordered By: Dr. Au on 12-02-2022 Creatinine [Mass/Vol] 2.74 mg/dL 0.70-1.30 [facility] [place] Comment on above: The validity of the calculated GFR & GFRAA in patients over 70 years has not been determined. Clinical correlation is essential. Serum or plasma ferritin laurie surement (mass/volume)Ordered By: Dr. Au on 12-02-2022 Ferritin [Mass/Vol] 185 ng/mL 26-388 [facility] Serum or plasma iron saturat ion measurement (mass fraction)Ordered By: Dr. Au on 12-02-2022 Iron saturation [Mass fraction] 27.8 % 15.0-55.0 [facility] Serum or plasma urea nitroge n measurement (mass/volume)Ordered By: Dr. Au on 12-02-2022 Urea nitrogen [Mass/Vol] 63 mg/dL 7-18 [facility] Basophil percentageOrdered B y: Dr. Espino on 11-24-2022 Bilirubin [Mass/Vol] 0.90 mg/dL 0.20-1.00 [facility] Comment on above: For patients on eltr ombopag therapy, use of Dimension [place] TBIL is not recommended. Chloride [Moles/Vol] 107 mmol/L 98-107 [facility] Cholesterol [Mass/Vol] 103 mg/dL <[address] [facility] Comment on above: <200 mg/dL Desirable 200-240 mg/dL Borderline >240 mg/dL High Risk Glucose [Mass/Vol] 142 mg/dL 74-106 [facility] Comment on above: Fasting Glucose resu lt greater than or equal to 126 mg/dL suggests DIABETES MELLITUS per A.D.A. criteria. Potassium [Moles/Vol] 4.6 mmol/L 3.5-5.1 [facility] [place] Protein [Mass/Vol] 7.6 g/dL 6.4-8.2 [facility] Sodium [Moles/Vol] 142 mmol/L 136-145 [facility] Triglyceride [Mass/Vol] 141 mg/dL <199 [facility] Comment on above: The drugs N-Acetylcy steine and Metamizole may falsely depress this assay.Serum Triglycerides Reference Interval Normal <150 mg/dL Borderline high 150 - 199 mg/dL High 200 - 499 mg/dL Very High > or = 500 mg/dL WBC (Bld) [#/Vol] 9.1 10*3/uL 4.4-11.0 [facility] Blood erythrocytes count (nu mber/volume)Ordered By: Dr. Espino on 11-24-2022 RBC (Bld) [#/Vol] 3.51 10*6/uL 4.6-6.2 [facility] Blood hemoglobin measurement (mass/volume)Ordered By: Dr. Espino on 11-24-2022 Hemoglobin (Bld) [Mass/Vol] 11.3 g/dL 13.0-16.5 [facility] Blood platelet mean volumeOr dered By: Dr. Espino on 11-24-2022 Platelet mean volume (Bld) [Entitic vol] 11.1 fL 6.2-12.0 [facility] Determination of erythrocyte mean corpuscular volume (MCV)Ordered By: Dr. Espino on 11-24-2022 MCV (RBC) [Entitic vol] 99.7 fL 80-94 [facility] Hematocrit Auto (Bld) [Volum e fraction]Ordered By: Dr. Espino on 11-24-2022 Hematocrit (Bld) [Volume fraction] 35.0 % 40-54 [facility] Laboratory - Chemistry and C hemistry - challengeOrdered By: Dr. Espino on 11-24-2022 ALP [Catalytic activity/Vol] 135 U/L 45-117 [facility] ALT [Catalytic activity/Vol] 17 U/L 16-61 [facility] CO2 [Moles/Vol] 30.0 mmol/L 21.0-32.0 [facility] Globulin (S) [Mass/Vol] 4.3 g/dL 2.2-4.2 [facility] Urea nitrogen/Creatinine [Mass ratio] 23.0 mg/mg 10-20 [facility] Laboratory - Hematology and Cell countsOrdered By: Dr. Espino on 11-24-2022 Erythrocyte distribution width (RBC) [Entitic vol] 52.0 fL 35.1-43.9 [facility] Erythrocyte distribution width (RBC) [Ratio] 14.4 % 11.6-14.6 [facility] MCH (RBC) [Entitic mass] 32.2 pg 27.0-32.0 [facility] MCHC Auto (RBC) [Mass/Vol]Or dered By: Dr. Espino on 11-24-2022 MCHC (RBC) [Mass/Vol] 32.3 g/dL 32-36 [facility] [place] No Panel InformationOrdered By: Dr. Espino on 11-24-2022 Estimated GFR (MDRD) Amer 33 mL/min >60 [facility] Comment on above: GFR Calc Estimated GFR (MDRD) Non-Af Amer 27 mL/min >60 [facility] Comment on above: Non- GFR Calc Thyroid Stimulating Hormone (TSH) 5.30 uIU/mL 0.358-3.74 [facility] Platelets bldOrdered By: Dr. Espino on 11-24-2022 Platelets (Bld) [#/Vol] 148 10*3/uL 150-450 [facility] Serum or plasma albumin aubree urement (mass/volume)Ordered By: Dr. Espino on 11-24-2022 Albumin [Mass/Vol] 3.3 g/dL 3.2-5.0 [facility] Serum or plasma albumin/glob ulin mass ratioOrdered By: Dr. Espino on 11-24-2022 Albumin/Globulin [Mass ratio] 0.8 {ratio} 0.9-2.4 [facility] Serum or plasma calcium aubree urement (mass/volume)Ordered By: Dr. Espino on 11-24-2022 Calcium [Mass/Vol] 9.0 mg/dL 8.5-10.1 [facility] Serum or plasma cholesterol in HDL measurement (mass/volume)Ordered By: Dr. Espino on 11-24-2022 Cholesterol in HDL [Mass/Vol] 29 mg/dL >40 [facility] Comment on above: The drugs N-Acetylcy steine and Metamizole may falsely depress this assay. Reference Range HDL <40 mg/dL Low HDL Cholesterol HDL >or= 60 mg/dL High HDL Cholesterol Serum or plasma cholesterol in VLDL measurement (mass/volume)Ordered By: Dr. Espino on 11-24-2022 Cholesterol in VLDL [Mass/Vol] 28 mg/dL 5-40 [facility] Serum or plasma creatinine m easurement (mass/volume)Ordered By: Dr. Espino on 11-24-2022 Creatinine [Mass/Vol] 2.44 mg/dL 0.70-1.30 [facility] [place] Comment on above: The validity of the calculated GFR & GFRAA in patients over 70 years has not been determined. Clinical correlation is essential. Serum or plasma low density lipoprotein (LDL) cholesterol measurement (mass/volume)Ordered By: Dr. Espino on 11-24-2022 Cholesterol in LDL [Mass/Vol] 46 mg/dL 0-130 [facility] Serum or plasma urea nitroge n measurement (mass/volume)Ordered By: Dr. Espino on 11-24-2022 Urea nitrogen [Mass/Vol] 56 mg/dL 7-18 [facility] Thin prep Papanicolaou smear with manual screeningOrdered By: Dr. Espino on 11-24-2022 Thin prep Papanicolaou smear with manual screening 19 U/L 15-37 [facility] Thin prep Papanicolaou smear with manual screening 5 5-15 [facility] Whole blood hemoglobin A1c/t otal hemoglobin ratio (mass fraction)Ordered By: Dr. Espino on 11-24-2022 HbA1c (Bld) [Mass fraction] 5.8 % 3.8-5.6 [facility] Comment on above: Normal < 5.7 % Predi abetic 5.7 - 6.4 % Diabetic >or= 6.5 % Please note range changes. Absolute lymphocyte countOrd ered By: Dr. Au on 11-01-2022 Lymphocytes Auto (Unsp spec) [#/Vol] 2.34 10*3/uL 0.83-4.51 [facility] Basophil percentageOrdered B y: Dr. Au on 11-01-2022 Basophil percentage 3.7 mg/dL 2.5-4.9 [facility] Basophils/100 WBC (Bld) 0.4 % 0-1 [facility] Chloride [Moles/Vol] 105 mmol/L 98-107 [facility] Eosinophils/100 WBC (Bld) 2.1 % 0-5 [facility] Glucose [Mass/Vol] 168 mg/dL 74-106 [facility] Comment on above: Fasting Glucose resu lt greater than or equal to 126 mg/dL suggests DIABETES MELLITUS per A.D.A. criteria. Neutrophils (Bld) [#/Vol] 7.0 10*3/uL 2.0-7.7 [facility] Neutrophils/100 WBC (Bld) 67.9 % 47-70 [facility] Potassium [Moles/Vol] 4.0 mmol/L 3.5-5.1 [facility] [place] Sodium [Moles/Vol] 140 mmol/L 136-145 [facility] WBC (Bld) [#/Vol] 10.3 10*3/uL 4.4-11.0 [facility] Blood erythrocytes count (nu mber/volume)Ordered By: Dr. Au on 11-01-2022 RBC (Bld) [#/Vol] 3.58 10*6/uL 4.6-6.2 [facility] Blood hemoglobin measurement (mass/volume)Ordered By: Dr. Au on 11-01-2022 Hemoglobin (Bld) [Mass/Vol] 11.2 g/dL 13.0-16.5 [facility] Blood lymphocytes/100 leukoc ytesOrdered By: Dr. Au on 11-01-2022 Lymphocytes/100 WBC (Bld) 22.7 % 19-41 [facility] Blood monocytes/100 leukocyt esOrdered By: Dr. Au on 11-01-2022 Monocytes/100 WBC (Bld) 6.5 % 0-10 [facility] Blood platelet mean volumeOr dered By: Dr. Au on 11-01-2022 Platelet mean volume (Bld) [Entitic vol] 10.0 fL 6.2-12.0 [facility] Determination of erythrocyte mean corpuscular volume (MCV)Ordered By: Dr. Au on 11-01-2022 MCV (RBC) [Entitic vol] 99.2 fL 80-94 [facility] Hematocrit Auto (Bld) [Volum e fraction]Ordered By: Dr. Au on 11-01-2022 Hematocrit (Bld) [Volume fraction] 35.5 % 40-54 [facility] Iron measurement (mass/mass) Ordered By: Dr. Au on 11-01-2022 Iron (Unsp spec) [Mass/Mass] 69 ug/dL 65-175 [facility] Laboratory - Chemistry and C hemistry - challengeOrdered By: Dr. Au on 11-01-2022 CO2 [Moles/Vol] 29.0 mmol/L 21.0-32.0 [facility] Urea nitrogen/Creatinine [Mass ratio] 21.5 mg/mg 10-20 [facility] Laboratory - Hematology and Cell countsOrdered By: Dr. Au on 11-01-2022 Erythrocyte distribution width (RBC) [Entitic vol] 51.2 fL 35.1-43.9 [facility] Erythrocyte distribution width (RBC) [Ratio] 14.4 % 11.6-14.6 [facility] Immature granulocytes/100 WBC (Bld) 0.400 % 0.0-0.9 [facility] Comment on above: IG% - Immature Granu locytes (promyelocytes, myelocytes and metamyelocytes) > 1% indicates that a LEFT SHIFT is Present. MCH (RBC) [Entitic mass] 31.3 pg 27.0-32.0 [facility] Nucleated RBC/100 WBC (Bld) [Ratio] 0 % 0-5 [facility] MCHC Auto (RBC) [Mass/Vol]Or dered By: Dr. Au on 11-01-2022 MCHC (RBC) [Mass/Vol] 31.5 g/dL 32-36 [facility] [place] No Panel InformationOrdered By: Dr. Au on 11-01-2022 Estimated GFR (MDRD) Amer 30 mL/min >60 [facility] Comment on above: GFR Calc Estimated GFR (MDRD) Non-Af Amer 25 mL/min >60 [facility] Comment on above: Non- GFR Calc Total Iron Binding Capacity 228 ug/dL 250-450 [facility] Platelets bldOrdered By: Dr. Au on 11-01-2022 Platelets (Bld) [#/Vol] 155 10*3/uL 150-450 [facility] Serum or plasma albumin aubree urement (mass/volume)Ordered By: Dr. Au on 11-01-2022 Albumin [Mass/Vol] 3.3 g/dL 3.2-5.0 [facility] Serum or plasma calcium aubree urement (mass/volume)Ordered By: Dr. Au on 11-01-2022 Calcium [Mass/Vol] 9.6 mg/dL 8.5-10.1 [facility] Serum or plasma creatinine m easurement (mass/volume)Ordered By: Dr. Au on 11-01-2022 Creatinine [Mass/Vol] 2.61 mg/dL 0.70-1.30 [facility] [place] Comment on above: The validity of the calculated GFR & GFRAA in patients over 70 years has not been determined. Clinical correlation is essential. Serum or plasma ferritin laurie surement (mass/volume)Ordered By: Dr. Au on 11-01-2022 Ferritin [Mass/Vol] 166 ng/mL 26-388 [facility] Serum or plasma iron saturat ion measurement (mass fraction)Ordered By: Dr. Au on 11-01-2022 Iron saturation [Mass fraction] 30.3 % 15.0-55.0 [facility] Serum or plasma urea nitroge n measurement (mass/volume)Ordered By: Dr. Au on 11-01-2022 Urea nitrogen [Mass/Vol] 56 mg/dL 7-18 [facility] Absolute lymphocyte countOrd ered By: Dr. Au on 10-04-2022 Lymphocytes Auto (Unsp spec) [#/Vol] 1.62 10*3/uL 0.83-4.51 [facility] Basophil percentageOrdered B y: Dr. Au on 10-04-2022 Basophil percentage 2.5 mg/dL 2.5-4.9 [facility] Basophils/100 WBC (Bld) 0.3 % 0-1 [facility] Chloride [Moles/Vol] 107 mmol/L 98-107 [facility] Eosinophils/100 WBC (Bld) 2.3 % 0-5 [facility] Glucose [Mass/Vol] 180 mg/dL 74-106 [facility] Comment on above: Fasting Glucose resu lt greater than or equal to 126 mg/dL suggests DIABETES MELLITUS per A.D.A. criteria. Neutrophils (Bld) [#/Vol] 6.5 10*3/uL 2.0-7.7 [facility] Neutrophils/100 WBC (Bld) 73.0 % 47-70 [facility] Potassium [Moles/Vol] 4.3 mmol/L 3.5-5.1 [facility] Sodium [Moles/Vol] 140 mmol/L 136-145 [facility] WBC (Bld) [#/Vol] 9.0 10*3/uL 4.4-11.0 [facility] Blood erythrocytes count (nu mber/volume)Ordered By: Dr. Au on 10-04-2022 RBC (Bld) [#/Vol] 3.42 10*6/uL 4.6-6.2 [facility] Blood hemoglobin measurement (mass/volume)Ordered By: Dr. Au on 10-04-2022 Hemoglobin (Bld) [Mass/Vol] 10.7 g/dL 13.0-16.5 [facility] Blood lymphocytes/100 leukoc ytesOrdered By: Dr. Au on 10-04-2022 Lymphocytes/100 WBC (Bld) 18.1 % 19-41 [facility] Blood monocytes/100 leukocyt esOrdered By: Dr. Au on 10-04-2022 Monocytes/100 WBC (Bld) 6.0 % 0-10 [facility] Blood platelet mean volumeOr dered By: Dr. Au on 10-04-2022 Platelet mean volume (Bld) [Entitic vol] 10.7 fL 6.2-12.0 [facility] Determination of erythrocyte mean corpuscular volume (MCV)Ordered By: Dr. Au on 10-04-2022 MCV (RBC) [Entitic vol] 98.8 fL 80-94 [facility] Hematocrit Auto (Bld) [Volum e fraction]Ordered By: Dr. Au on 10-04-2022 Hematocrit (Bld) [Volume fraction] 33.8 % 40-54 [facility] Iron measurement (mass/mass) Ordered By: Dr. Au on 10-04-2022 Iron (Unsp spec) [Mass/Mass] 56 ug/dL 65-175 [facility] Laboratory - Chemistry and C hemistry - challengeOrdered By: Dr. Au on 10-04-2022 CO2 [Moles/Vol] 29.0 mmol/L 21.0-32.0 [facility] Urea nitrogen/Creatinine [Mass ratio] 19.6 mg/mg 10-20 [facility] Laboratory - Hematology and Cell countsOrdered By: Dr. Au on 10-04-2022 Erythrocyte distribution width (RBC) [Entitic vol] 52.6 fL 35.1-43.9 [facility] Erythrocyte distribution width (RBC) [Ratio] 14.6 % 11.6-14.6 [facility] Immature granulocytes/100 WBC (Bld) 0.300 % 0.0-0.9 [facility] Comment on above: IG% - Immature Granu locytes (promyelocytes, myelocytes and metamyelocytes) > 1% indicates that a LEFT SHIFT is Present. MCH (RBC) [Entitic mass] 31.3 pg 27.0-32.0 [facility] Nucleated RBC/100 WBC (Bld) [Ratio] 0 % 0-5 [facility] MCHC Auto (RBC) [Mass/Vol]Or dered By: Dr. Au on 10-04-2022 MCHC (RBC) [Mass/Vol] 31.7 g/dL 32-36 [facility] [place] No Panel InformationOrdered By: Dr. Au on 10-04-2022 Estimated GFR (MDRD) Amer 34 mL/min >60 [facility] Comment on above: GFR Calc Estimated GFR (MDRD) Non-Af Amer 28 mL/min >60 [facility] Comment on above: Non- GFR Calc Total Iron Binding Capacity 276 ug/dL 250-450 [facility] Platelets bldOrdered By: Dr. Au on 10-04-2022 Platelets (Bld) [#/Vol] 145 10*3/uL 150-450 [facility] Serum or plasma albumin aubree urement (mass/volume)Ordered By: Dr. Au on 10-04-2022 Albumin [Mass/Vol] 3.0 g/dL 3.2-5.0 [facility] Serum or plasma calcium aubree urement (mass/volume)Ordered By: Dr. Au on 10-04-2022 Calcium [Mass/Vol] 9.1 mg/dL 8.5-10.1 [facility] Serum or plasma creatinine m easurement (mass/volume)Ordered By: Dr. Au on 10-04-2022 Creatinine [Mass/Vol] 2.35 mg/dL 0.70-1.30 [facility] [place] Comment on above: The validity of the calculated GFR & GFRAA in patients over 70 years has not been determined. Clinical correlation is essential. Serum or plasma ferritin laurie surement (mass/volume)Ordered By: Dr. Au on 10-04-2022 Ferritin [Mass/Vol] 205 ng/mL 26-388 [facility] Serum or plasma iron saturat ion measurement (mass fraction)Ordered By: Dr. Au on 10-04-2022 Iron saturation [Mass fraction] 20.3 % 15.0-55.0 [facility] Serum or plasma urea nitroge n measurement (mass/volume)Ordered By: Dr. Au on 10-04-2022 Urea nitrogen [Mass/Vol] 46 mg/dL 7-18 [facility] Absolute lymphocyte countOrd ered By: Dr. Au on 09-29-2022 Lymphocytes Auto (Unsp spec) [#/Vol] 1.94 10*3/uL 0.83-4.51 [facility] Basophil percentageOrdered B y: Dr. Au on 09-29-2022 Basophil percentage 3.0 mg/dL 2.5-4.9 [facility] Basophils/100 WBC (Bld) 0.4 % 0-1 [facility] Chloride [Moles/Vol] 105 mmol/L 98-107 [facility] Eosinophils/100 WBC (Bld) 2.3 % 0-5 [facility] Glucose [Mass/Vol] 121 mg/dL 74-106 [facility] Comment on above: Fasting Glucose resu lt from 100 to 125 mg/dL suggests IMPAIRED HOMEOSTASIS per A.D.A. criteria. Neutrophils (Bld) [#/Vol] 6.8 10*3/uL 2.0-7.7 [facility] Neutrophils/100 WBC (Bld) 70.7 % 47-70 [facility] Potassium [Moles/Vol] 4.0 mmol/L 3.5-5.1 [facility] [place] Sodium [Moles/Vol] 139 mmol/L 136-145 [facility] WBC (Bld) [#/Vol] 9.6 10*3/uL 4.4-11.0 [facility] Blood erythrocytes count (nu mber/volume)Ordered By: Dr. Au on 09-29-2022 RBC (Bld) [#/Vol] 3.42 10*6/uL 4.6-6.2 [facility] Blood hemoglobin measurement (mass/volume)Ordered By: Dr. Au on 09-29-2022 Hemoglobin (Bld) [Mass/Vol] 10.9 g/dL 13.0-16.5 [facility] Blood lymphocytes/100 leukoc ytesOrdered By: Dr. Au on 09-29-2022 Lymphocytes/100 WBC (Bld) 20.2 % 19-41 [facility] Blood monocytes/100 leukocyt esOrdered By: Dr. Au on 09-29-2022 Monocytes/100 WBC (Bld) 5.9 % 0-10 [facility] Blood platelet mean volumeOr dered By: Dr. Au on 09-29-2022 Platelet mean volume (Bld) [Entitic vol] 10.8 fL 6.2-12.0 [facility] Determination of erythrocyte mean corpuscular volume (MCV)Ordered By: Dr. Au on 09-29-2022 MCV (RBC) [Entitic vol] 100.3 fL 80-94 [facility] Hematocrit Auto (Bld) [Volum e fraction]Ordered By: Dr. Au on 09-29-2022 Hematocrit (Bld) [Volume fraction] 34.3 % 40-54 [facility] Iron measurement (mass/mass) Ordered By: Dr. Au on 09-29-2022 Iron (Unsp spec) [Mass/Mass] 58 ug/dL 65-175 [facility] Laboratory - Chemistry and C hemistry - challengeOrdered By: Dr. Au on 09-29-2022 CO2 [Moles/Vol] 29.0 mmol/L 21.0-32.0 [facility] Urea nitrogen/Creatinine [Mass ratio] 23.3 mg/mg 10-20 [facility] Laboratory - Hematology and Cell countsOrdered By: Dr. Au on 09-29-2022 Erythrocyte distribution width (RBC) [Entitic vol] 53.1 fL 35.1-43.9 [facility] Erythrocyte distribution width (RBC) [Ratio] 14.7 % 11.6-14.6 [facility] Immature granulocytes/100 WBC (Bld) 0.500 % 0.0-0.9 [facility] Comment on above: IG% - Immature Granu locytes (promyelocytes, myelocytes and metamyelocytes) > 1% indicates that a LEFT SHIFT is Present. MCH (RBC) [Entitic mass] 31.9 pg 27.0-32.0 [facility] Nucleated RBC/100 WBC (Bld) [Ratio] 0 % 0-5 [facility] MCHC Auto (RBC) [Mass/Vol]Or dered By: Dr. Au on 09-29-2022 MCHC (RBC) [Mass/Vol] 31.8 g/dL 32-36 [facility] No Panel InformationOrdered By: Dr. Au on 09-29-2022 Estimated GFR (MDRD) Amer 36 mL/min >60 [facility] Comment on above: GFR Calc Estimated GFR (MDRD) Non-Af Amer 30 mL/min >60 [facility] Comment on above: Non- GFR Calc Parathyroid Hormone (Intact) 113.6 pg/mL 18.4-80.1 [facility] Total Iron Binding Capacity 220 ug/dL 250-450 [facility] Platelets bldOrdered By: Dr. Au on 09-29-2022 Platelets (Bld) [#/Vol] 163 10*3/uL 150-450 [facility] Serum or plasma albumin aubree urement (mass/volume)Ordered By: Dr. Au on 09-29-2022 Albumin [Mass/Vol] 3.0 g/dL 3.2-5.0 [facility] Serum or plasma calcium aubree urement (mass/volume)Ordered By: Dr. Au on 09-29-2022 Calcium [Mass/Vol] 8.8 mg/dL 8.5-10.1 [facility] Serum or plasma creatinine m easurement (mass/volume)Ordered By: Dr. Au on 09-29-2022 Creatinine [Mass/Vol] 2.27 mg/dL 0.70-1.30 [facility] Comment on above: The validity of the calculated GFR & GFRAA in patients over 70 years has not been determined. Clinical correlation is essential. Serum or plasma ferritin laurie surement (mass/volume)Ordered By: Dr. Au on 09-29-2022 Ferritin [Mass/Vol] 185 ng/mL 26-388 [facility] Serum or plasma iron saturat ion measurement (mass fraction)Ordered By: Dr. Au on 09-29-2022 Iron saturation [Mass fraction] 26.4 % 15.0-55.0 [facility] Serum or plasma urea nitroge n measurement (mass/volume)Ordered By: Dr. Au on 09-29-2022 Urea nitrogen [Mass/Vol] 53 mg/dL 7-18 [facility] Serum or plasma uric acid me asurement (mass/volume)Ordered By: Dr. Au on 09-29-2022 Urate [Mass/Vol] 6.3 mg/dL 3.5-7.2 [facility] Comment on above: The drugs N-Acetylcy steine and Metamizole may falsely depress this assay. Urine creatinine measurement (mass/volume)Ordered By: Dr. Au on 09-29-2022 Creatinine (U) [Mass/Vol] 54.30 mg/dL NO RANGE EST. [facility] Urine protein measurement (m ass/volume)Ordered By: Dr. Au on 09-29-2022 Protein (U) [Mass/Vol] 55.8 mg/dL 0.0-11.[address] [facility] Urine protein/creatinine mas s ratioOrdered By: Dr. Au on 09-29-2022 Protein/Creatinine (U) [Mass ratio] 1028 mg/g CRE 0-200 [facility] Absolute lymphocyte countOrd ered By: Dr. Au on 09-06-2022 Lymphocytes Auto (Unsp spec) [#/Vol] 1.88 10*3/uL 0.83-4.51 [facility] Basophil percentageOrdered B y: Dr. Au on 09-06-2022 Basophil percentage 3.0 mg/dL 2.5-4.9 [facility] Basophils/100 WBC (Bld) 0.4 % 0-1 [facility] Chloride [Moles/Vol] 106 mmol/L 98-107 [facility] Eosinophils/100 WBC (Bld) 2.5 % 0-5 [facility] Glucose [Mass/Vol] 104 mg/dL 74-106 [facility] Comment on above: Fasting Glucose resu lt from 100 to 125 mg/dL suggests IMPAIRED HOMEOSTASIS per A.D.A. criteria. Neutrophils (Bld) [#/Vol] 7.0 10*3/uL 2.0-7.7 [facility] Neutrophils/100 WBC (Bld) 69.8 % 47-70 [facility] Potassium [Moles/Vol] 3.9 mmol/L 3.5-5.1 [facility] Sodium [Moles/Vol] 141 mmol/L 136-145 [facility] WBC (Bld) [#/Vol] 10.0 10*3/uL 4.4-11.0 [facility] Blood erythrocytes count (nu mber/volume)Ordered By: Dr. Au on 09-06-2022 RBC (Bld) [#/Vol] 3.44 10*6/uL 4.6-6.2 [facility] Blood hemoglobin measurement (mass/volume)Ordered By: Dr. Au on 09-06-2022 Hemoglobin (Bld) [Mass/Vol] 10.6 g/dL 13.0-16.5 [facility] Blood lymphocytes/100 leukoc ytesOrdered By: Dr. Au on 09-06-2022 Lymphocytes/100 WBC (Bld) 18.9 % 19-41 [facility] Blood monocytes/100 leukocyt esOrdered By: Dr. Au on 09-06-2022 Monocytes/100 WBC (Bld) 7.9 % 0-10 [facility] Blood platelet mean volumeOr dered By: Dr. Au on 09-06-2022 Platelet mean volume (Bld) [Entitic vol] 10.5 fL 6.2-12.0 [facility] Determination of erythrocyte mean corpuscular volume (MCV)Ordered By: Dr. Au on 09-06-2022 MCV (RBC) [Entitic vol] 98.5 fL 80-94 [facility] Hematocrit Auto (Bld) [Volum e fraction]Ordered By: Dr. Au on 09-06-2022 Hematocrit (Bld) [Volume fraction] 33.9 % 40-54 [facility] Iron measurement (mass/mass) Ordered By: Dr. Au on 09-06-2022 Iron (Unsp spec) [Mass/Mass] 52 ug/dL 65-175 [facility] Laboratory - Chemistry and C hemistry - challengeOrdered By: Dr. Au on 09-06-2022 CO2 [Moles/Vol] 30.0 mmol/L 21.0-32.0 [facility] Urea nitrogen/Creatinine [Mass ratio] 21.3 mg/mg 10-20 [facility] Laboratory - Hematology and Cell countsOrdered By: Dr. Au on 09-06-2022 Erythrocyte distribution width (RBC) [Entitic vol] 51.6 fL 35.1-43.9 [facility] Erythrocyte distribution width (RBC) [Ratio] 14.4 % 11.6-14.6 [facility] Immature granulocytes/100 WBC (Bld) 0.500 % 0.0-0.9 [facility] Comment on above: IG% - Immature Granu locytes (promyelocytes, myelocytes and metamyelocytes) > 1% indicates that a LEFT SHIFT is Present. MCH (RBC) [Entitic mass] 30.8 pg 27.0-32.0 [facility] Nucleated RBC/100 WBC (Bld) [Ratio] 0 % 0-5 [facility] MCHC Auto (RBC) [Mass/Vol]Or dered By: Dr. Au on 09-06-2022 MCHC (RBC) [Mass/Vol] 31.3 g/dL 32-36 [facility] [place] No Panel InformationOrdered By: Dr. Au on 09-06-2022 Estimated GFR (MDRD) Amer 32 mL/min >60 [facility] Comment on above: GFR Calc Estimated GFR (MDRD) Non-Af Amer 26 mL/min >60 [facility] Comment on above: Non- GFR Calc Parathyroid Hormone (Intact) 33.7 pg/mL 18.4-80.1 [facility] Total Iron Binding Capacity 215 ug/dL 250-450 [facility] Platelets bldOrdered By: Dr. Au on 09-06-2022 Platelets (Bld) [#/Vol] 155 10*3/uL 150-450 [facility] Serum or plasma albumin aubree urement (mass/volume)Ordered By: Dr. Au on 09-06-2022 Albumin [Mass/Vol] 2.9 g/dL 3.2-5.0 [facility] Serum or plasma calcium aubree urement (mass/volume)Ordered By: Dr. Au on 09-06-2022 Calcium [Mass/Vol] 9.2 mg/dL 8.5-10.1 [facility] Serum or plasma creatinine m easurement (mass/volume)Ordered By: Dr. Au on 09-06-2022 Creatinine [Mass/Vol] 2.53 mg/dL 0.70-1.30 [facility] [place] Comment on above: The validity of the calculated GFR & GFRAA in patients over 70 years has not been determined. Clinical correlation is essential. Serum or plasma ferritin laurie surement (mass/volume)Ordered By: Dr. Au on 09-06-2022 Ferritin [Mass/Vol] 172 ng/mL 26-388 [facility] Serum or plasma iron saturat ion measurement (mass fraction)Ordered By: Dr. Au on 09-06-2022 Iron saturation [Mass fraction] 24.2 % 15.0-55.0 [facility] Serum or plasma urea nitroge n measurement (mass/volume)Ordered By: Dr. Au on 09-06-2022 Urea nitrogen [Mass/Vol] 54 mg/dL 7-18 [facility] Basophil percentageOrdered B y: Dr. Espino on 08-27-2022 Bilirubin [Mass/Vol] 0.90 mg/dL 0.20-1.00 [facility] Comment on above: For patients on eltr ombopag therapy, use of Dimension [place] TBIL is not recommended. Chloride [Moles/Vol] 103 mmol/L 98-107 [facility] Glucose [Mass/Vol] 114 mg/dL 74-106 [facility] Comment on above: Fasting Glucose resu lt from 100 to 125 mg/dL suggests IMPAIRED HOMEOSTASIS per A.D.A. criteria. Potassium [Moles/Vol] 4.1 mmol/L 3.5-5.1 [facility] [place] Protein [Mass/Vol] 8.0 g/dL 6.4-8.2 [facility] Sodium [Moles/Vol] 141 mmol/L 136-145 [facility] WBC (Bld) [#/Vol] 9.5 10*3/uL 4.4-11.0 [facility] Blood erythrocytes count (nu mber/volume)Ordered By: Dr. Espino on 08-27-2022 RBC (Bld) [#/Vol] 3.64 10*6/uL 4.6-6.2 [facility] Blood hemoglobin measurement (mass/volume)Ordered By: Dr. Espino on 08-27-2022 Hemoglobin (Bld) [Mass/Vol] 11.3 g/dL 13.0-16.5 [facility] Blood platelet mean volumeOr dered By: Dr. Espino on 08-27-2022 Platelet mean volume (Bld) [Entitic vol] 10.9 fL 6.2-12.0 [facility] Determination of erythrocyte mean corpuscular volume (MCV)Ordered By: Dr. Espino on 08-27-2022 MCV (RBC) [Entitic vol] 99.5 fL 80-94 [facility] Hematocrit Auto (Bld) [Volum e fraction]Ordered By: Dr. Espino on 08-27-2022 Hematocrit (Bld) [Volume fraction] 36.2 % 40-54 [facility] Laboratory - Chemistry and C hemistry - challengeOrdered By: Dr. Espino on 08-27-2022 ALP [Catalytic activity/Vol] 127 U/L 45-117 [facility] ALT [Catalytic activity/Vol] 19 U/L 16-61 [facility] CO2 [Moles/Vol] 32.0 mmol/L 21.0-32.0 [facility] Globulin (S) [Mass/Vol] 5.0 g/dL 2.2-4.2 [facility] Urea nitrogen/Creatinine [Mass ratio] 17.8 mg/mg 10-20 [facility] Laboratory - Hematology and Cell countsOrdered By: Dr. Espino on 08-27-2022 Erythrocyte distribution width (RBC) [Entitic vol] 51.9 fL 35.1-43.9 [facility] Erythrocyte distribution width (RBC) [Ratio] 14.4 % 11.6-14.6 [facility] MCH (RBC) [Entitic mass] 31.0 pg 27.0-32.0 [facility] MCHC Auto (RBC) [Mass/Vol]Or dered By: Dr. Espino on 08-27-2022 MCHC (RBC) [Mass/Vol] 31.2 g/dL 32-36 [facility] [place] No Panel InformationOrdered By: Dr. Espino on 08-27-2022 Estimated GFR (MDRD) Amer 29 mL/min >60 [facility] Comment on above: GFR Calc Estimated GFR (MDRD) Non-Af Amer 24 mL/min >60 [facility] Comment on above: Non- GFR Calc Platelets bldOrdered By: Dr. Espino on 08-27-2022 Platelets (Bld) [#/Vol] 147 10*3/uL 150-450 [facility] Serum or plasma albumin aubree urement (mass/volume)Ordered By: Dr. Espino on 08-27-2022 Albumin [Mass/Vol] 3.0 g/dL 3.2-5.0 [facility] Serum or plasma albumin/glob ulin mass ratioOrdered By: Dr. Espino on 08-27-2022 Albumin/Globulin [Mass ratio] 0.6 {ratio} 0.9-2.4 [facility] Serum or plasma calcium aubree urement (mass/volume)Ordered By: Dr. Espino on 08-27-2022 Calcium [Mass/Vol] 9.5 mg/dL 8.5-10.1 [facility] Serum or plasma creatinine m easurement (mass/volume)Ordered By: Dr. Espino on 08-27-2022 Creatinine [Mass/Vol] 2.69 mg/dL 0.70-1.30 [facility] [place] Comment on above: The validity of the calculated GFR & GFRAA in patients over 70 years has not been determined. Clinical correlation is essential. Serum or plasma urea nitroge n measurement (mass/volume)Ordered By: Dr. Espino on 08-27-2022 Urea nitrogen [Mass/Vol] 48 mg/dL 7-18 [facility] Thin prep Papanicolaou smear with manual screeningOrdered By: Dr. Espino on 08-27-2022 Thin prep Papanicolaou smear with manual screening 20 U/L 15-37 [facility] Thin prep Papanicolaou smear with manual screening 6 5-15 [facility] Whole blood hemoglobin A1c/t otal hemoglobin ratio (mass fraction)Ordered By: Dr. Espino on 08-27-2022 HbA1c (Bld) [Mass fraction] 6.3 % 3.8-5.6 [facility] Comment on above: Normal < 5.7 % Predi abetic 5.7 - 6.4 % Diabetic >or= 6.5 % Please note range changes. Absolute lymphocyte counton 08-09-2022 Lymphocytes Auto (Unsp spec) [#/Vol] 2.02 10*3/uL 0.83-4.51 [facility] Work Phone: Basophil percentageon 2021 Basophil percentage 3.8 mg/dL 2.5-4.9 [facility] Work Phone: Basophils/100 WBC (Bld) 0.2 % 0-1 [facility] Work Phone: Chloride [Moles/Vol] 106 mmol[facility]L 98-107 [facility]: Eosinophils/100 WBC (Bld) 3.5 % 0-5 [facility] Work Phone: Glucose [Mass/Vol] 114 mg/dL 74-106 [facility] Work Phone: Comment on above: Fasting Glucose resu lt from 100 to 125 mg/dL suggests IMPAIRED HOMEOSTASIS per A.D.A. criteria. Neutrophils (Bld) [#/Vol] 6.9 10*3/uL 2.0-7.7 [facility] Work Phone: Neutrophils/100 WBC (Bld) 68.8 % 47-70 [facility] Work Phone: Potassium [Moles/Vol] 4.3 mmol/L 3.5-5.1 [facility] Work [facility]: Sodium [Moles/Vol] 141 mmol/L 136-145 [facility] Work Phone: WBC (Bld) [#/Vol] 10.0 10*3/uL 4.4-11.0 [facility] Work Phone: Blood erythrocytes count (nu mber/volume)on 08-09-2022 RBC (Bld) [#/Vol] 3.45 10*6/uL 4.6-6.2 [facility] Work Phone: Blood hemoglobin measurement (mass/volume)on 08-09-2022 Hemoglobin (Bld) [Mass/Vol] 11.2 g/dL 13.0-16.5 [facility] Work Phone: Blood lymphocytes/100 leukoc yteson 09-12-2022 Lymphocytes/100 WBC (Bld) 20.2 % 19-41 [facility] Work Phone: Blood monocytes/100 leukocyt eson 08-09-2022 Monocytes/100 WBC (Bld) 6.9 % 0-10 [facility] Work Phone: Blood platelet mean volumeon 08-09-2022 Platelet mean volume (Bld) [Entitic vol] 10.0 fL 6.2-12.0 [facility] Work Phone: Determination of erythrocyte mean corpuscular volume (MCV)on 08-09-2022 MCV (RBC) [Entitic vol] 98.6 fL 80-94 [facility] Work Phone: Hematocrit Auto (Bld) [Volum e fraction]on 08-09-2022 Hematocrit (Bld) [Volume fraction] 34.0 % 40-54 [facility] Work Phone: Iron measurement (mass/mass) on 08-09-2022 Iron (Unsp spec) [Mass/Mass] 74 ug/dL 65-175 [facility] Work Phone: Laboratory - Chemistry and C hemistry - challengeon 08-09-2022 CO2 [Moles/Vol] 29.0 mmol/L 21.0-32.0 [facility] Work Phone: Urea nitrogen/Creatinine [Mass ratio] 24.0 mg/mg 10-20 [facility] Work Phone: Laboratory - Hematology and Cell countson 08-09-2022 Erythrocyte distribution width (RBC) [Entitic vol] 52.4 fL 35.1-43.9 [facility] Work Phone: Erythrocyte distribution width (RBC) [Ratio] 14.6 % 11.6-14.6 [facility] Work Phone: Immature granulocytes/100 WBC (Bld) 0.400 % 0.0-0.9 [facility] Work Phone: Comment on above: IG% - Immature Granu locytes (promyelocytes, myelocytes and metamyelocytes) > 1% indicates that a LEFT SHIFT is Present. MCH (RBC) [Entitic mass] 32.5 pg 27.0-32.0 [facility] Work Phone: Nucleated RBC/100 WBC (Bld) [Ratio] 0 % 0-5 [facility] Work Phone: MCHC Auto (RBC) [Mass/Vol]on 08-09-2022 MCHC (RBC) [Mass/Vol] 32.9 g/dL 32-36 [facility] [place] Work Phone: No Panel Informationon 08-09 Estimated GFR (MDRD) Amer 27 mL/min >60 [facility] Work Phone: Comment on above: GFR Calc Estimated GFR (MDRD) Non-Af Amer 23 mL/min >60 [facility] Work Phone: Comment on above: Non- GFR Calc Total Iron Binding Capacity 217 ug/dL 250-450 [facility] Work Phone: Platelets bldon 08-09-2022 Platelets (Bld) [#/Vol] 147 10*3/uL 150-450 [facility] Work Phone: Serum or plasma albumin aubree urement (mass/volume)on 08-09-2022 Albumin [Mass/Vol] 3.1 g/dL 3.2-5.0 [facility] Work Phone: Serum or plasma calcium aubree urement (mass/volume)on 08-09-2022 Calcium [Mass/Vol] 10.8 mg/dL 8.5-10.1 [facility] Work Phone: Serum or plasma creatinine m easurement (mass/volume)on 08-09-2022 Creatinine [Mass/Vol] 2.87 mg/dL 0.70-1.30 [facility] [place] Work Phone: Comment on above: The validity of the calculated GFR & GFRAA in patients over 70 years has not been determined. Clinical correlation is essential. Serum or plasma ferritin laurie surement (mass/volume)on 08-09-2022 Ferritin [Mass/Vol] 194 ng/mL 26-388 [facility] Work Phone: Serum or plasma iron saturat ion measurement (mass fraction)on 08-09-2022 Iron saturation [Mass fraction] 34.1 % 15.0-55.0 [facility] Work Phone: Serum or plasma urea nitroge n measurement (mass/volume)on 08-09-2022 Urea nitrogen [Mass/Vol] 69 mg/dL 7-18 [facility] Work Phone: INR in Blood by Coagulation assayon 07-16-2022 INR Coag (Bld) [Relative time] 1.7 {INR} [facility] Work Phone: Laboratory - Coagulationon 0 07-16-2022 PT Coag (PPP) [Time] 19.5 s 11.7-14.9 [facility] Work Phone: Absolute lymphocyte counton 07-12-2022 Lymphocytes Auto (Unsp spec) [#/Vol] 1.55 10*3/uL 0.83-4.51 [facility] Work Phone: Basophil percentageon 2021 Basophil percentage 2.9 mg/dL 2.5-4.9 [facility] Work Phone: Basophils/100 WBC (Bld) 0.4 % 0-1 [facility] Work Phone: Chloride [Moles/Vol] 107 mmol/L 98-107 [facility] Work Phone: Eosinophils/100 WBC (Bld) 2.8 % 0-5 [facility] Work Phone: Glucose [Mass/Vol] 182 mg/dL 74-106 [facility] Work Phone: Comment on above: Fasting Glucose resu lt greater than or equal to 126 mg/dL suggests DIABETES MELLITUS per A.D.A. criteria. Neutrophils (Bld) [#/Vol] 6.0 10*3/uL 2.0-7.7 [facility] Work Phone: Neutrophils/100 WBC (Bld) 70.9 % 47-70 [facility] Work Phone: [phone] Potassium [Moles/Vol] 4.2 mmol/L 3.5-5.1 [facility] Work Phone: [phone] Sodium [Moles/Vol] 139 mmol/L 136-145 [facility] Work Phone: [phone] WBC (Bld) [#/Vol] 8.5 10*3/uL 4.4-11.0 [facility] Work Phone: [phone] Blood erythrocytes count (nu mber/volume)on 07-12-2022 RBC (Bld) [#/Vol] 3.25 10*6/uL [facility].6[facility]6.[facility] [phone] Blood hemoglobin measurement (mass/volume)on 07-12-2022 Hemoglobin (Bld) [Mass/Vol] 10.3 g/dL 13.0-16.5 [facility] Work Phone: [phone] Blood lymphocytes/100 leukoc yteson 07-12-2022 Lymphocytes/100 WBC (Bld) 18.2 % 19-41 [facility] Work Phone: [phone] Blood monocytes/100 leukocyt eson 07-12-2022 Monocytes/100 WBC (Bld) 6.9 % 0-10 [facility] Work Phone: [phone] Blood platelet mean volumeon 07-12-2022 Platelet mean volume (Bld) [Entitic vol] 10.7 fL 6.2-12.0 [facility] Work Phone: [phone] Determination of erythrocyte mean corpuscular volume (MCV)on 07-12-2022 MCV (RBC) [Entitic vol] 97.2 fL 80-94 [facility] Work Phone: [phone] Hematocrit Auto (Bld) [Volum e fraction]on 07-12-2022 Hematocrit (Bld) [Volume fraction] 31.6 % 40-54 [facility] Work Phone: [phone] Iron measurement (mass/mass) on 07-12-2022 Iron (Unsp spec) [Mass/Mass] 66 ug/dL 65-175 [facility] Work Phone: [phone] Laboratory - Chemistry and C hemistry - challengeon 07-12-2022 CO2 [Moles/Vol] 27.0 mmol/L 21.0-32.0 [facility] Work Phone: [phone] Urea nitrogen/Creatinine [Mass ratio] 24.0 mg/mg 10-20 [facility] Work Phone: [phone] Laboratory - Hematology and Cell countson 07-12-2022 Erythrocyte distribution width (RBC) [Entitic vol] 50.8 fL 35.1-43.9 [facility] Work Phone: [phone] Erythrocyte distribution width (RBC) [Ratio] 14.6 % 11.6-14.6 [facility] Work Phone: [phone] Immature granulocytes/100 WBC (Bld) 0.800 % 0.0-0.9 [facility] Work Phone: [phone] Comment on above: IG% - Immature Granu locytes (promyelocytes, myelocytes and metamyelocytes) > 1% indicates that a LEFT SHIFT is Present. MCH (RBC) [Entitic mass] 31.7 pg 27.0-32.0 [facility] Work Phone: [phone] Nucleated RBC/100 WBC (Bld) [Ratio] 0 % 0-5 [facility] Work Phone: [phone] MCHC Auto (RBC) [Mass/Vol]on 07-12-2022 MCHC (RBC) [Mass/Vol] 32.6 g/dL 32-36 [facility] Work Phone: No Panel Informationon 07-12 Estimated GFR (MDRD) Amer 30 mL/min >60 [facility] Work Phone: [phone] Comment on above: GFR Calc Estimated GFR (MDRD) Non-Af Amer 25 mL/min >60 [facility] Work Phone: [phone] Comment on above: Non- GFR Calc Total Iron Binding Capacity 228 ug/dL 250-450 [facility] Work Phone: Platelets bldon 07-12-2022 Platelets (Bld) [#/Vol] 154 10*3/uL 150-450 [facility] Work Phone: Serum or plasma albumin aubree urement (mass/volume)on 07-12-2022 Albumin [Mass/Vol] 2.8 g/dL 3.2-5.0 [facility] Work Phone: [phone] Serum or plasma calcium aubree urement (mass/volume)on 07-12-2022 Calcium [Mass/Vol] 9.2 mg/dL 8.5-10.1 [facility] Work Phone: [phone] Serum or plasma creatinine m easurement (mass/volume)on 07-12-2022 Creatinine [Mass/Vol] 2.63 mg/dL 0.70-1.30 [facility] Work Phone: Comment on above: The validity of the calculated GFR & GFRAA in patients over 70 years has not been determined. Clinical correlation is essential. Serum or plasma ferritin laurie surement (mass/volume)on 07-12-2022 Ferritin [Mass/Vol] 227 ng/mL 26-388 [facility] Work Phone: Serum or plasma iron saturat ion measurement (mass fraction)on 07-12-2022 Iron saturation [Mass fraction] 28.9 % 15.0-55.0 [facility] Work Phone: Serum or plasma urea nitroge n measurement (mass/volume)on 07-12-2022 Urea nitrogen [Mass/Vol] 63 mg/dL 7-18 [facility] Work Phone: [phone] Basophil percentageon 2021 Bilirubin [Mass/Vol] 0.90 mg/dL 0.20-1.00 [facility] Work Phone: Comment on above: For patients on eltr ombopag therapy, use of Dimension [place] TBIL is not recommended. Chloride [Moles/Vol] 104 mmol/L 98-107 [facility] Work Phone: Glucose [Mass/Vol] 147 mg/dL 74-106 [facility] Work Phone: Comment on above: Fasting Glucose resu lt greater than or equal to 126 mg/dL suggests DIABETES MELLITUS per A.D.A. criteria. Potassium [Moles/Vol] 4.6 mmol/L 3.5-5.1 [facility] Work Phone: Protein [Mass/Vol] 8.2 g/dL 6.4-8.2 [facility] Work Phone: Sodium [Moles/Vol] 137 mmol/L 136-145 [facility] Work Phone: WBC (Bld) [#/Vol] 9.1 10*3/uL 4.4-11.0 [facility] Work Phone: Blood erythrocytes count (nu mber/volume)on 07-09-2022 RBC (Bld) [#/Vol] 3.47 10*6/uL 4.6-6.2 [facility] Work Phone: Blood hemoglobin measurement (mass/volume)on 07-09-2022 Hemoglobin (Bld) [Mass/Vol] 10.8 g/dL 13.0-16.5 [facility] Work Phone: Blood platelet mean volumeon 07-09-2022 Platelet mean volume (Bld) [Entitic vol] 11.0 fL 6.2-12.0 [facility] Work Phone: Determination of erythrocyte mean corpuscular volume (MCV)on 07-09-2022 MCV (RBC) [Entitic vol] 98.8 fL 80-94 [facility] Work Phone: Hematocrit Auto (Bld) [Volum e fraction]on 07-09-2022 Hematocrit (Bld) [Volume fraction] 34.3 % 40-54 [facility] Work Phone: INR in Blood by Coagulation assayon 07-09-2022 INR Coag (Bld) [Relative time] 2.7 {INR} [facility] Work Phone: Laboratory - Chemistry and C hemistry - challengeon 07-09-2022 ALP [Catalytic activity/Vol] 145 U/L 45-117 [facility] Work Phone: ALT [Catalytic activity/Vol] 19 U/L 16-61 [facility] Work Phone: [phone] CO2 [Moles/Vol] 29.0 mmol/L 21.0-32.0 [facility] Work Phone: [phone] Globulin (S) [Mass/Vol] 5.2 g/dL 2.2-4.2 [facility] Work Phone: [phone] Natriuretic peptide B (Bld) [Mass/Vol] 265.9 pg/mL 0-100 [facility] Work Phone: [phone] Urea nitrogen/Creatinine [Mass ratio] 26.0 mg/mg 10-20 [facility] Work Phone: [phone] Laboratory - Coagulationon 0 07-09-2022 PT Coag (PPP) [Time] 28.2 s 11.7-14.9 [facility] Work Phone: [phone] Laboratory - Hematology and Cell countson 07-09-2022 Erythrocyte distribution width (RBC) [Entitic vol] 51.2 fL 35.1-43.9 [facility] Work Phone: [phone] Erythrocyte distribution width (RBC) [Ratio] 14.2 % 11.6-14.6 [facility] Work Phone: [phone] MCH (RBC) [Entitic mass] 31.1 pg 27.0-32.0 [facility] Work Phone: [phone] MCHC Auto (RBC) [Mass/Vol]on 07-09-2022 MCHC (RBC) [Mass/Vol] 31.5 g/dL 32-36 [facility] Work Phone: No Panel Informationon 07-09 Estimated GFR (MDRD) Amer 32 mL/min >60 [facility] Work Phone: Comment on above: GFR Calc Estimated GFR (MDRD) Non-Af Amer 27 mL/min >60 [facility] Work Phone: Comment on above: Non- GFR Calc Platelets bldon 07-09-2022 Platelets (Bld) [#/Vol] 148 10*3/uL 150-450 [facility] Work Phone: Serum or plasma albumin aubree urement (mass/volume)on 07-09-2022 Albumin [Mass/Vol] 3.0 g/dL 3.2-5.0 [facility] Work Phone: [phone] Serum or plasma albumin/glob ulin mass ratioon 07-09-2022 Albumin/Globulin [Mass ratio] 0.6 {ratio} 0.9-2.4 [facility] Work Phone: Serum or plasma calcium aubree urement (mass/volume)on 07-09-2022 Calcium [Mass/Vol] 9.0 mg/dL 8.5-10.1 [facility] Work Phone: Serum or plasma creatinine m easurement (mass/volume)on 07-09-2022 Creatinine [Mass/Vol] 2.50 mg/dL 0.70-1.30 [facility] Work Phone: Comment on above: The validity of the calculated GFR & GFRAA in patients over 70 years has not been determined. Clinical correlation is essential. Serum or plasma urea nitroge n measurement (mass/volume)on 07-09-2022 Urea nitrogen [Mass/Vol] 65 mg/dL 7-18 [facility] Work Phone: [phone] Thin prep Papanicolaou smear with manual screeningon 07-09-2022 Thin prep Papanicolaou smear with manual screening 24 U/L 15-37 [facility] Work Phone: [phone] Thin prep Papanicolaou smear with manual screening 4 5-15 [facility] Work Phone: Basophil percentageon 2021 Bilirubin [Mass/Vol] 0.60 mg/dL 0.20-1.00 [facility] Work Phone: Comment on above: For patients on eltr ombopag therapy, use of Dimension [place] TBIL is not recommended. Chloride [Moles/Vol] 105 mmol/L 98-107 [facility] Work Phone: Cholesterol [Mass/Vol] 92 mg/dL <200 [facility] Work Phone: [phone] Comment on above: <200 mg/dL Desirable 200-240 mg/dL Borderline >240 mg/dL High Risk Glucose [Mass/Vol] 114 mg/dL 74-106 [facility] Work Phone: [phone] Comment on above: Fasting Glucose resu lt from 100 to 125 mg/dL suggests IMPAIRED HOMEOSTASIS per A.D.A. criteria. Potassium [Moles/Vol] 4.5 mmol/L 3.5-5.1 [facility] Work Phone: Protein [Mass/Vol] 8.0 g/dL 6.4-8.2 [facility] Work Phone: Sodium [Moles/Vol] 139 mmol/L 136-145 [facility] Work Phone: [phone] Triglyceride [Mass/Vol] 114 mg/dL <199 [facility] Work Phone: [phone] Comment on above: The drugs N-Acetylcy steine and Metamizole may falsely depress this assay.Serum Triglycerides Reference Interval Normal <150 mg/dL Borderline high 150 - 199 mg/dL High 200 - 499 mg/dL Very High > or = 500 mg/dL INR in Blood by Coagulation assayon 06-18-2022 INR Coag (Bld) [Relative time] 2.8 {INR} [facility] Work Phone: [phone] Laboratory - Chemistry and C hemistry - challengeon 06-18-2022 ALP [Catalytic activity/Vol] 132 U/L 45-117 [facility] Work Phone: [phone] ALT [Catalytic activity/Vol] 19 U/L 16-61 [facility] Work Phone: [phone] CO2 [Moles/Vol] 30.0 mmol/L 21.0-32.0 [facility] Work Phone: [phone] Free T4 [Mass/Vol] 0.80 ng/dL 0.76-1.46 [facility] Work Phone: [phone] Globulin (S) [Mass/Vol] 5.0 g/dL 2.2-4.2 [facility] Work Phone: [phone] Urea nitrogen/Creatinine [Mass ratio] 19.9 mg/mg 10-20 [facility] Work Phone: Laboratory - Coagulationon 0 06-18-2022 PT Coag (PPP) [Time] 29.3 s 11.7-14.9 [facility] Work Phone: No Panel Informationon 06-18 Estimated GFR (MDRD) Amer 29 mL/min >60 [facility] Work Phone: Comment on above: GFR Calc Estimated GFR (MDRD) Non-Af Amer 24 mL/min >60 [facility] Work Phone: Comment on above: Non- GFR Calc Hepatitis C Antibody Non-Reactive Nonreactive [facility] Work Phone: Comment on above: Non Reactive: < 0.8 Equivocal: >/= 0.8 to < 1.0 Reactive: >/= 1.0The CDC recommends that a reactive/equivocal HCV antibody result be followed up by the HCV Nucleic Acid Amplificationtest (751202) Thyroid Stimulating Hormone (TSH) 5.65 uIU/mL 0.358-3.74 [facility] Work Phone: [phone] Urine Microalbumin/Creatinine Ratio 173.8 mg/g CRE <30 [facility] Work Phone: [phone] Vitamin D 25-Hydroxy 48.5 ng/mL [facility] Work Phone: Comment on above: Vitamin D 25(OH) Sta tus Range Deficiency <20 ng/mL (50nmol/L) Insufficiency 20 - 30 ng/mL (50 - 75 nmol/L) Sufficiency 30 - 100 ng/mL (75 - 250 nmol/L) Toxicity >100 ng/mL (>250 nmol/L) Serum or plasma albumin aubree urement (mass/volume)on 06-18-2022 Albumin [Mass/Vol] 3.0 g/dL 3.2-5.0 [facility] Work Phone: Serum or plasma albumin/glob ulin mass ratioon 06-18-2022 Albumin/Globulin [Mass ratio] 0.6 {ratio} 0.9-2.4 [facility] Work Phone: Serum or plasma calcium aubree urement (mass/volume)on 06-18-2022 Calcium [Mass/Vol] 9.3 mg/dL 8.5-10.1 [facility] Work Phone: Serum or plasma cholesterol in HDL measurement (mass/volume)on 06-18-2022 Cholesterol in HDL [Mass/Vol] 31 mg/dL >40 [facility] Work Phone: Comment on above: The drugs N-Acetylcy steine and Metamizole may falsely depress this assay. Reference Range HDL <40 mg/dL Low HDL Cholesterol HDL >or= 60 mg/dL High HDL Cholesterol Serum or plasma cholesterol in VLDL measurement (mass/volume)on 06-18-2022 Cholesterol in VLDL [Mass/Vol] 23 mg/dL 5-40 [facility] Work Phone: Serum or plasma creatinine m easurement (mass/volume)on 06-18-2022 Creatinine [Mass/Vol] 2.76 mg/dL 0.70-1.30 [facility] Work Phone: Comment on above: The validity of the calculated GFR & GFRAA in patients over 70 years has not been determined. Clinical correlation is essential. Serum or plasma low density lipoprotein (LDL) cholesterol measurement (mass/volume)on 06-18-2022 Cholesterol in LDL [Mass/Vol] 38 mg/dL 0-130 [facility] Work Phone: [phone] Serum or plasma urea nitroge n measurement (mass/volume)on 06-18-2022 Urea nitrogen [Mass/Vol] 55 mg/dL 7-18 [facility] Work Phone: [phone] Thin prep Papanicolaou smear with manual screeningon 06-18-2022 Thin prep Papanicolaou smear with manual screening 19 U/L 15-37 [facility] Work Phone: Thin prep Papanicolaou smear with manual screening 4 5-15 [facility] Work Phone: Thin prep Papanicolaou smear with manual screening 285.0 mg/L NO RANGE EST. [facility] Work Phone: Urine creatinine measurement (mass/volume)on 06-18-2022 Creatinine (U) [Mass/Vol] 164.00 mg/dL NO RANGE EST. [facility] Work Phone: Absolute lymphocyte counton 06-14-2022 Lymphocytes Auto (Unsp spec) [#/Vol] 1.51 10*3/uL 0.83-4.51 [facility] Work Phone: Basophil percentageon 2021 Basophil percentage 2.6 mg/dL 2.5-4.9 [facility] Work Phone: Basophils/100 WBC (Bld) 0.3 % 0-1 [facility] Work Phone: Chloride [Moles/Vol] 104 mmol/L 98-107 [facility] Work Phone: Eosinophils/100 WBC (Bld) 2.6 % 0-5 [facility] Work Phone: Glucose [Mass/Vol] 195 mg/dL 74-106 [facility] Work Phone: Comment on above: Fasting Glucose resu lt greater than or equal to 126 mg/dL suggests DIABETES MELLITUS per A.D.A. criteria. Neutrophils (Bld) [#/Vol] 6.3 10*3/uL 2.0-7.7 [facility] Work Phone: Neutrophils/100 WBC (Bld) 72.7 % 47-70 [facility] Work Phone: Potassium [Moles/Vol] 4.2 mmol/L 3.5-5.1 [facility] Work Phone: Sodium [Moles/Vol] 141 mmol/L 136-145 [facility] Work Phone: WBC (Bld) [#/Vol] 8.7 10*3/uL 4.4-11.0 [facility] Work Phone: Blood erythrocytes count (nu mber/volume)on 06-14-2022 RBC (Bld) [#/Vol] 3.50 10*6/uL 4.6-6.2 [facility]: Blood hemoglobin measurement (mass/volume)on 06-14-2022 Hemoglobin (Bld) [Mass/Vol] 10.9 g/dL 13.0-16.5 [facility] Work Phone: Blood lymphocytes/100 leukoc yteson 06-14-2022 Lymphocytes/100 WBC (Bld) 17.4 % 19-41 [facility] Work Phone: [phone] Blood monocytes/100 leukocyt eson 06-14-2022 Monocytes/100 WBC (Bld) 6.4 % 0-10 [facility] Work Phone: Blood platelet mean volumeon 06-14-2022 Platelet mean volume (Bld) [Entitic vol] 10.3 fL 6.2-12.0 [facility] Work Phone: Determination of erythrocyte mean corpuscular volume (MCV)on 06-14-2022 MCV (RBC) [Entitic vol] 100.0 fL 80-94 [facility] Work Phone: Hematocrit Auto (Bld) [Volum e fraction]on 06-14-2022 Hematocrit (Bld) [Volume fraction] 35.0 % 40-54 [facility] Work Phone: Iron measurement (mass/mass) on 06-14-2022 Iron (Unsp spec) [Mass/Mass] 62 ug/dL 65-175 [facility] Work Phone: Laboratory - Chemistry and C hemistry - challengeon 06-14-2022 CO2 [Moles/Vol] 31.0 mmol/L 21.0-32.0 [facility] Work Phone: Urea nitrogen/Creatinine [Mass ratio] 22.4 mg/mg 10-20 [facility] Work Phone: Laboratory - Hematology and Cell countson 06-14-2022 Erythrocyte distribution width (RBC) [Entitic vol] 50.7 fL 35.1-43.9 [facility] Work Phone: [phone] Erythrocyte distribution width (RBC) [Ratio] 14.1 % 11.6-14.6 [facility] Work Phone: [phone] Immature granulocytes/100 WBC (Bld) 0.600 % 0.0-0.9 [facility] Work Phone: [phone] Comment on above: IG% - Immature Granu locytes (promyelocytes, myelocytes and metamyelocytes) > 1% indicates that a LEFT SHIFT is Present. MCH (RBC) [Entitic mass] 31.1 pg 27.0-32.0 [facility] Work Phone: [phone] Nucleated RBC/100 WBC (Bld) [Ratio] 0 % 0-5 [facility] Work Phone: [phone] MCHC Auto (RBC) [Mass/Vol]on 06-14-2022 MCHC (RBC) [Mass/Vol] 31.1 g/dL 32-36 [facility] Work Phone: No Panel Informationon 06-14 Estimated Creatinine Clearance Calc 19.46 ml/min [facility] Work Phone: Estimated GFR (MDRD) Amer 31 mL/min >60 [facility] Work Phone: [phone] Comment on above: GFR Calc Estimated GFR (MDRD) Non-Af Amer 25 mL/min >60 [facility] Work Phone: Comment on above: Non- GFR Calc Parathyroid Hormone (Intact) 39.9 pg/mL 18.4-80.1 [facility] Work Phone: Total Iron Binding Capacity 252 ug/dL 250-450 [facility] Work Phone: [phone] Platelets bldon 06-14-2022 Platelets (Bld) [#/Vol] 139 10*3/uL 150-450 [facility] Work Phone: Serum or plasma albumin aubree urement (mass/volume)on 06-14-2022 Albumin [Mass/Vol] 3.0 g/dL 3.2-5.0 [facility] Work Phone: Serum or plasma calcium aubree urement (mass/volume)on 06-14-2022 Calcium [Mass/Vol] 9.2 mg/dL 8.5-10.1 [facility] Work Phone: [phone] Serum or plasma creatinine m easurement (mass/volume)on 06-14-2022 Creatinine [Mass/Vol] 2.59 mg/dL 0.70-1.30 [facility] Work Phone: Comment on above: The validity of the calculated GFR & GFRAA in patients over 70 years has not been determined. Clinical correlation is essential. Serum or plasma ferritin laurie surement (mass/volume)on 06-14-2022 Ferritin [Mass/Vol] 210 ng/mL 26-388 [facility]: Serum or plasma iron saturat ion measurement (mass fraction)on 06-14-2022 Iron saturation [Mass fraction] 24.6 % 15.0-55.0 [facility] Work Phone: Serum or plasma urea nitroge n measurement (mass/volume)on 06-14-2022 Urea nitrogen [Mass/Vol] 58 mg/dL 18 [facility] Work Phone: [phone] Basophil percentageon 2021 Bilirubin [Mass/Vol] 0.80 mg/dL 0.20-1.00 [facility] Work Phone: [phone] Comment on above: For patients on eltr ombopag therapy, use of Dimension [place] TBIL is not recommended. Chloride [Moles/Vol] 103 mmol/L 98-107 [facility] Work Phone: [phone] Cholesterol [Mass/Vol] 104 mg/dL <[address] [facility] Work Phone: [phone] Comment on above: <200 mg/dL Desirable 200-240 mg/dL Borderline >240 mg/dL High Risk Glucose [Mass/Vol] 115 mg/dL 74-106 [facility] Work Phone: [phone] Comment on above: Fasting Glucose resu lt from 100 to 125 mg/dL suggests IMPAIRED HOMEOSTASIS per A.D.A. criteria. Potassium [Moles/Vol] 4.2 mmol/L 3.5-5.1 [facility] Work Phone: [phone] Protein [Mass/Vol] 8.4 g/dL 6.4-8.2 [facility] Work Phone: [phone] Sodium [Moles/Vol] 140 mmol/L 136-145 [facility] Work Phone: [phone] Triglyceride [Mass/Vol] 86 mg/dL <199 [facility] Work Phone: [phone] Comment on above: The drugs N-Acetylcy steine and Metamizole may falsely depress this assay.Serum Triglycerides Reference Interval Normal <150 mg/dL Borderline high 150 - 199 mg/dL High 200 - 499 mg/dL Very High > or = 500 mg/dL WBC (Bld) [#/Vol] 12.5 10*3/uL 4.4-11.0 [facility] Work Phone: [phone] Blood erythrocytes count (nu mber/volume)on 05-18-2022 RBC (Bld) [#/Vol] 3.47 10*6/uL 4.6-6.2 [facility] Work Phone: [phone] Blood hemoglobin measurement (mass/volume)on 05-18-2022 Hemoglobin (Bld) [Mass/Vol] 11.0 g/dL 13.0-16.5 [facility] Work Phone: [phone] Blood platelet mean volumeon 05-18-2022 Platelet mean volume (Bld) [Entitic vol] 10.7 fL 6.2-12.0 [facility] Work Phone: [phone] Determination of erythrocyte mean corpuscular volume (MCV)on 05-18-2022 MCV (RBC) [Entitic vol] 99.7 fL 80-94 [facility] Work Phone: [phone] Hematocrit Auto (Bld) [Volum e fraction]on 05-18-2022 Hematocrit (Bld) [Volume fraction] 34.6 % 40-54 [facility] Work Phone: [phone] Laboratory - Chemistry and C hemistry - challengeon 05-18-2022 ALP [Catalytic activity/Vol] 140 U/L 45-117 [facility] Work Phone: [phone] ALT [Catalytic activity/Vol] 23 U/L 16-61 [facility] Work Phone: [phone] CO2 [Moles/Vol] 29.0 mmol/L 21.0-32.0 [facility] Work Phone: [phone] Globulin (S) [Mass/Vol] 5.5 g/dL 2.2-4.2 [facility] Work Phone: [phone] Urea nitrogen/Creatinine [Mass ratio] 23.7 mg/mg 10-20 [facility] Work Phone: [phone] Laboratory - Hematology and Cell countson 05-18-2022 Erythrocyte distribution width (RBC) [Entitic vol] 51.8 fL 35.1-43.9 [facility] Work Phone: [phone] Erythrocyte distribution width (RBC) [Ratio] 14.3 % 11.6-14.6 [facility] Work Phone: [phone] MCH (RBC) [Entitic mass] 31.7 pg 27.0-32.0 [facility] Work Phone: [phone] MCHC Auto (RBC) [Mass/Vol]on 05-18-2022 MCHC (RBC) [Mass/Vol] 31.8 g/dL 32-36 [facility] Work Phone: No Panel Informationon 05-18 Estimated GFR (MDRD) Amer 29 mL/min >60 [facility] Work Phone: [phone] Comment on above: GFR Calc Estimated GFR (MDRD) Non-Af Amer 24 mL/min >60 [facility] Work Phone: [phone] Comment on above: Non- GFR Calc Thyroid Stimulating Hormone (TSH) 5.11 uIU/mL 0.358-3.74 [facility] Work Phone: Platelets bldon 05-18-2022 Platelets (Bld) [#/Vol] 169 10*3/uL 150-450 [facility] Work Phone: Serum or plasma albumin aubree urement (mass/volume)on 05-18-2022 Albumin [Mass/Vol] 2.9 g/dL 3.2-5.0 [facility] Work Phone: [phone] Serum or plasma albumin/glob ulin mass ratioon 05-18-2022 Albumin/Globulin [Mass ratio] 0.5 {ratio} 0.9-2.4 [facility] Work Phone: Serum or plasma calcium aubree urement (mass/volume)on 05-18-2022 Calcium [Mass/Vol] 9.5 mg/dL 8.5-10.1 [facility] Work Phone: Serum or plasma cholesterol in HDL measurement (mass/volume)on 05-18-2022 Cholesterol in HDL [Mass/Vol] 37 mg/dL >40 [facility] Work Phone: Comment on above: The drugs N-Acetylcy steine and Metamizole may falsely depress this assay. Reference Range HDL <40 mg/dL Low HDL Cholesterol HDL >or= 60 mg/dL High HDL Cholesterol Serum or plasma cholesterol in VLDL measurement (mass/volume)on 05-18-2022 Cholesterol in VLDL [Mass/Vol] 17 mg/dL 5-40 [facility] Work Phone: [phone] Serum or plasma creatinine m easurement (mass/volume)on 05-18-2022 Creatinine [Mass/Vol] 2.74 mg/dL 0.70-1.30 [facility] Work Phone: Comment on above: The validity of the calculated GFR & GFRAA in patients over 70 years has not been determined. Clinical correlation is essential. Serum or plasma low density lipoprotein (LDL) cholesterol measurement (mass/volume)on 05-18-2022 Cholesterol in LDL [Mass/Vol] 50 mg/dL 0-130 [facility] Work Phone: Serum or plasma urea nitroge n measurement (mass/volume)on 05-18-2022 Urea nitrogen [Mass/Vol] 65 mg/dL 7-18 [facility] Work Phone: Thin prep Papanicolaou smear with manual screeningon 05-18-2022 Thin prep Papanicolaou smear with manual screening 18 U/L 15-37 [facility] Work Phone: Thin prep Papanicolaou smear with manual screening 8 5-15 [facility] Work Phone: [phone] Whole blood hemoglobin A1c/t otal hemoglobin ratio (mass fraction)on 05-18-2022 HbA1c (Bld) [Mass fraction] 6.3 % 3.8-5.6 [facility] Work Phone: [phone] Comment on above: Normal < 5.7 % Predi abetic 5.7 - 6.4 % Diabetic >or= 6.5 % Please note range changes. Absolute lymphocyte counton 05-17-2022 Lymphocytes Auto (Unsp spec) [#/Vol] 1.53 10*3/uL 0.83-4.51 [facility] Work Phone: Basophil percentageon 2021 Basophil percentage 3.5 mg[facility].5[facility]4.9 [facility]: Basophils/100 WBC (Bld) 0.3 % 0-1 [facility] Work Phone: Chloride [Moles/Vol] 104 mmol/L 98-107 [facility]: Eosinophils/100 WBC (Bld) 1.8 % 0-5 [facility] Work Phone: Glucose [Mass/Vol] 302 mg/dL 74-106 [facility] Work Phone: Comment on above: Glucose result great er than or equal to 200 mg/dLsuggests DIABETES MELLITUS per A.D.A. criteria. Neutrophils (Bld) [#/Vol] 12.1 10*3/uL 2.0-7.7 [facility] Work Phone: Neutrophils/100 WBC (Bld) 81.8 % 47-70 [facility] Work Phone: Potassium [Moles/Vol] 4.4 mmol/L 3.5-5.1 [facility]: Sodium [Moles/Vol] 138 mmol/L 136-[facility]: WBC (Bld) [#/Vol] 14.8 10*3/uL 4.4-11.0 [facility] Work Phone: Blood erythrocytes count (nu mber/volume)on 05-17-2022 RBC (Bld) [#/Vol] 3.49 10*6/uL 4.6-6.2 [facility] Work Phone: Blood hemoglobin measurement (mass/volume)on 05-17-2022 Hemoglobin (Bld) [Mass/Vol] 11.1 g/dL 13.0-16.5 [facility] Work Phone: [phone] Blood lymphocytes/100 leukoc yteson 05-17-2022 Lymphocytes/100 WBC (Bld) 10.3 % 19-41 [facility] Work Phone: [phone] Blood monocytes/100 leukocyt eson 05-17-2022 Monocytes/100 WBC (Bld) 5.1 % 0-10 [facility] Work Phone: [phone] Blood platelet mean volumeon 05-17-2022 Platelet mean volume (Bld) [Entitic vol] 10.1 fL 6.2-12.0 [facility] Work Phone: Determination of erythrocyte mean corpuscular volume (MCV)on 05-17-2022 MCV (RBC) [Entitic vol] 99.7 fL 80-94 [facility] Work Phone: Hematocrit Auto (Bld) [Volum e fraction]on 05-17-2022 Hematocrit (Bld) [Volume fraction] 34.8 % 40-54 [facility] Work Phone: Iron measurement (mass/mass) on 05-17-2022 Iron (Unsp spec) [Mass/Mass] 49 ug/dL 65-175 [facility] Work Phone: Laboratory - Chemistry and C hemistry - challengeon 05-17-2022 CO2 [Moles/Vol] 30.0 mmol/L 21.0-32.0 [facility] Work Phone: Urea nitrogen/Creatinine [Mass ratio] 23.1 mg/mg 10-20 [facility] Work Phone: [phone] Laboratory - Hematology and Cell countson 05-17-2022 Erythrocyte distribution width (RBC) [Entitic vol] 51.1 fL 35.1-43.9 [facility] Work Phone: [phone] Erythrocyte distribution width (RBC) [Ratio] 14.2 % 11.6-14.6 [facility] Work Phone: Immature granulocytes/100 WBC (Bld) 0.700 % 0.0-0.9 [facility] Work Phone: Comment on above: IG% - Immature Granu locytes (promyelocytes, myelocytes and metamyelocytes) > 1% indicates that a LEFT SHIFT is Present. MCH (RBC) [Entitic mass] 31.8 pg 27.0-32.0 [facility] Work Phone: Nucleated RBC/100 WBC (Bld) [Ratio] 0 % 0-5 [facility] Work Phone: MCHC Auto (RBC) [Mass/Vol]on 05-17-2022 MCHC (RBC) [Mass/Vol] 31.9 g/dL 32-36 [facility] Work Phone: No Panel Informationon 05-17 Estimated GFR (MDRD) Amer 29 mL/min >60 [facility] Work Phone: Comment on above: GFR Calc Estimated GFR (MDRD) Non-Af Amer 24 mL/min >60 [facility] Work Phone: Comment on above: Non- GFR Calc Total Iron Binding Capacity 232 ug/dL 250-450 [facility] Work Phone: Platelets bldon 05-17-2022 Platelets (Bld) [#/Vol] 156 10*3/uL 150-450 [facility] Work Phone: [phone] Serum or plasma albumin aubree urement (mass/volume)on 05-17-2022 Albumin [Mass/Vol] 3.0 g/dL 3.2-5.0 [facility] Work Phone: [phone] Serum or plasma calcium aubree urement (mass/volume)on 05-17-2022 Calcium [Mass/Vol] 9.8 mg/dL 8.5-10.1 [facility] Work Phone: [phone] Serum or plasma creatinine m easurement (mass/volume)on 05-17-2022 Creatinine [Mass/Vol] 2.77 mg/dL 0.70-1.30 [facility] Work Phone: [phone] Comment on above: The validity of the calculated GFR & GFRAA in patients over 70 years has not been determined. Clinical correlation is essential. Serum or plasma ferritin laurie surement (mass/volume)on 05-17-2022 Ferritin [Mass/Vol] 307 ng/mL 26-388 [facility] Work Phone: [phone] Serum or plasma iron saturat ion measurement (mass fraction)on 05-17-2022 Iron saturation [Mass fraction] 21.1 % 15.0-55.0 [facility] Work Phone: [phone] Serum or plasma urea nitroge n measurement (mass/volume)on 05-17-2022 Urea nitrogen [Mass/Vol] 64 mg/dL 7-18 [facility] Work Phone: [phone] Absolute lymphocyte counton 04-12-2022 Lymphocytes Auto (Unsp spec) [#/Vol] 1.61 10*3/uL 0.83-4.51 [facility] Work Phone: [phone] Basophil percentageon 2021 Basophil percentage 3.2 mg/dL 2.5-4.9 [facility] Work Phone: [phone] Basophils/100 WBC (Bld) 0.3 % 0-1 [facility] Work Phone: Chloride [Moles/Vol] 100 mmol/L 98-107 [facility] Work Phone: Eosinophils/100 WBC (Bld) 1.8 % 0-5 [facility] Work Phone: Glucose [Mass/Vol] 166 mg/dL 74-106 [facility] Work Phone: Comment on above: Fasting Glucose resu lt greater than or equal to 126 mg/dL suggests DIABETES MELLITUS per A.D.A. criteria. Neutrophils (Bld) [#/Vol] 8.3 10*3/uL 2.0-7.7 [facility] Work Phone: Neutrophils/100 WBC (Bld) 75.8 % 47-70 [facility] Work Phone: Potassium [Moles/Vol] 4.5 mmol/L 3.5-5.1 [facility] Work Phone: Sodium [Moles/Vol] 137 mmol/L 136-145 [facility] Work Phone: WBC (Bld) [#/Vol] 11.0 10*3/uL 4.4-11.0 [facility] Work Phone: Blood erythrocytes count (nu mber/volume)on 04-12-2022 RBC (Bld) [#/Vol] 3.44 10*6/uL 4.6-6.2 [facility] Work Phone: Blood hemoglobin measurement (mass/volume)on 04-12-2022 Hemoglobin (Bld) [Mass/Vol] 11.1 g/dL 13.0-16.5 [facility] Work Phone: Blood lymphocytes/100 leukoc yteson 04-12-2022 Lymphocytes/100 WBC (Bld) 14.7 % 19-41 [facility] Work Phone: Blood monocytes/100 leukocyt eson 04-12-2022 Monocytes/100 WBC (Bld) 6.9 % 0-10 [facility] Work Phone: [phone] Blood platelet mean volumeon 04-12-2022 Platelet mean volume (Bld) [Entitic vol] 9.4 fL 6.2-12.0 [facility] Work Phone: [phone] Determination of erythrocyte mean corpuscular volume (MCV)on 04-12-2022 MCV (RBC) [Entitic vol] 98.8 fL 80-94 [facility] Work Phone: [phone] Hematocrit Auto (Bld) [Volum e fraction]on 04-12-2022 Hematocrit (Bld) [Volume fraction] 34.0 % 40-54 [facility] Work Phone: [phone] Iron measurement (mass/mass) on 04-12-2022 Iron (Unsp spec) [Mass/Mass] 65 ug/dL 65-175 [facility] Work Phone: [phone] Laboratory - Chemistry and C hemistry - challengeon 04-12-2022 CO2 [Moles/Vol] 31.0 mmol/L 21.0-32.0 [facility] Work Phone: [phone] Urea nitrogen/Creatinine [Mass ratio] 24.7 mg/mg 10-20 [facility] Work Phone: [phone] Laboratory - Hematology and Cell countson 04-12-2022 Erythrocyte distribution width (RBC) [Entitic vol] 51.0 fL 35.1-43.9 [facility] Work Phone: [phone] Erythrocyte distribution width (RBC) [Ratio] 14.2 % 11.6-14.6 [facility] Work Phone: [phone] Immature granulocytes/100 WBC (Bld) 0.500 % 0.0-0.9 [facility] Work Phone: [phone] Comment on above: IG% - Immature Granu locytes (promyelocytes, myelocytes and metamyelocytes) > 1% indicates that a LEFT SHIFT is Present. MCH (RBC) [Entitic mass] 32.3 pg 27.0-32.0 [facility] Work Phone: Nucleated RBC/100 WBC (Bld) [Ratio] 0 % 0-5 [facility] Work Phone: MCHC Auto (RBC) [Mass/Vol]on 04-12-2022 MCHC (RBC) [Mass/Vol] 32.6 g/dL 32-36 [facility] Work Phone: No Panel Informationon 04-12 Estimated GFR (MDRD) Amer 32 mL/min >60 [facility] Work Phone: Comment on above: GFR Calc Estimated GFR (MDRD) Non-Af Amer 26 mL/min >60 [facility] Work Phone: Comment on above: Non- GFR Calc Total Iron Binding Capacity 228 ug/dL 250-450 [facility] Work Phone: Platelets bldon 04-12-2022 Platelets (Bld) [#/Vol] 140 10*3/uL 150-450 [facility] Work Phone: Serum or plasma albumin aubree urement (mass/volume)on 04-12-2022 Albumin [Mass/Vol] 3.0 g/dL 3.2-5.0 [facility] Work Phone: Serum or plasma calcium aubree urement (mass/volume)on 04-12-2022 Calcium [Mass/Vol] 9.0 mg/dL 8.5-10.1 [facility] Work Phone: Serum or plasma creatinine m easurement (mass/volume)on 04-12-2022 Creatinine [Mass/Vol] 2.51 mg/dL 0.70-1.30 [facility] Work Phone: Comment on above: The validity of the calculated GFR & GFRAA in patients over 70 years has not been determined. Clinical correlation is essential. Serum or plasma ferritin laurie surement (mass/volume)on 04-12-2022 Ferritin [Mass/Vol] 250 ng/mL 26-388 [facility] Work Phone: Serum or plasma iron saturat ion measurement (mass fraction)on 04-12-2022 Iron saturation [Mass fraction] 28.5 % 15.0-55.0 [facility] Work Phone: Serum or plasma urea nitroge n measurement (mass/volume)on 04-12-2022 Urea nitrogen [Mass/Vol] 62 mg/dL 7-18 [facility] Work Phone: [phone] Absolute lymphocyte counton 03-29-2022 Lymphocytes Auto (Unsp spec) [#/Vol] 1.98 10*3/uL 0.83-4.51 [facility] Work Phone: Basophil percentageon 2021 Basophil percentage 2.5 mg/dL 2.5-4.9 [facility]: Basophils/100 WBC (Bld) 0.6 % 0-1 [facility] Work Phone: Chloride [Moles/Vol] 109 mmol/L 98-107 [facility] Work Phone: Eosinophils/100 WBC (Bld) 2.8 % 0-5 [facility] Work Phone: Glucose [Mass/Vol] 121 mg/dL 74-106 [facility] Work Phone: Comment on above: Fasting Glucose resu lt from 100 to 125 mg/dL suggests IMPAIRED HOMEOSTASIS per A.D.A. criteria. Neutrophils (Bld) [#/Vol] 6.7 10*3/uL 2.0-7.7 [facility] Work Phone: Neutrophils/100 WBC (Bld) 68.7 % 47-70 [facility] Work Phone: Potassium [Moles/Vol] 4.4 mmol/L 3.5-5.1 [facility] Work Phone: Sodium [Moles/Vol] 140 mmol/L 136-145 [facility] Work Phone: WBC (Bld) [#/Vol] 9.8 10*3/uL 4.4-11.0 [facility] Work Phone: Blood erythrocytes count (nu mber/volume)on 05-02-2022 RBC (Bld) [#/Vol] 3.33 10*6/uL 4.6-6.2 [facility]: Blood hemoglobin measurement (mass/volume)on 03-29-2022 Hemoglobin (Bld) [Mass/Vol] 10.5 g/dL 13.0-16.5 [facility] Work Phone: Blood lymphocytes/100 leukoc yteson 03-29-2022 Lymphocytes/100 WBC (Bld) 20.2 % 19-41 [facility] Work Phone: Blood monocytes/100 leukocyt eson 03-29-2022 Monocytes/100 WBC (Bld) 6.7 % 0-10 [facility] Work Phone: Blood platelet mean volumeon 03-29-2022 Platelet mean volume (Bld) [Entitic vol] 10.8 fL 6.2-12.0 [facility] Work Phone: Determination of erythrocyte mean corpuscular volume (MCV)on 03-29-2022 MCV (RBC) [Entitic vol] 100.3 fL 80-94 [facility] Work Phone: Hematocrit Auto (Bld) [Volum e fraction]on 03-29-2022 Hematocrit (Bld) [Volume fraction] 33.4 % 40-54 [facility] Work Phone: Iron measurement (mass/mass) on 03-29-2022 Iron (Unsp spec) [Mass/Mass] 71 ug/dL 65-175 [facility] Work Phone: Laboratory - Chemistry and C hemistry - challengeon 03-29-2022 CO2 [Moles/Vol] 25.0 mmol/L 21.0-32.0 [facility] Work Phone: Urea nitrogen/Creatinine [Mass ratio] 27.5 mg/mg 10-20 [facility] Work Phone: Laboratory - Hematology and Cell countson 03-29-2022 Erythrocyte distribution width (RBC) [Entitic vol] 55.0 fL 35.1-43.9 [facility] Work Phone: [phone] Erythrocyte distribution width (RBC) [Ratio] 15.1 % 11.6-14.6 [facility] Work Phone: [phone] Immature granulocytes/100 WBC (Bld) 1.000 % 0.0-0.9 [facility] Work Phone: [phone] Comment on above: IG% - Immature Granu locytes (promyelocytes, myelocytes and metamyelocytes) > 1% indicates that a LEFT SHIFT is Present. MCH (RBC) [Entitic mass] 31.5 pg 27.0-32.0 [facility] Work Phone: Nucleated RBC/100 WBC (Bld) [Ratio] 0 % 0-5 [facility] Work Phone: [phone] MCHC Auto (RBC) [Mass/Vol]on 03-29-2022 MCHC (RBC) [Mass/Vol] 31.4 g/dL 32-36 [facility] Work Phone: No Panel Informationon 03-29 Estimated GFR (MDRD) Amer 37 mL/min >60 [facility] Work Phone: [phone] Comment on above: GFR Calc Estimated GFR (MDRD) Non-Af Amer 30 mL/min >60 [facility] Work Phone: Comment on above: Non- GFR Calc Parathyroid Hormone (Intact) 143.9 pg/mL 18.4-80.1 [facility] Work Phone: [phone] Total Iron Binding Capacity 242 ug/dL 250-450 [facility] Work Phone: Platelets bldon 03-29-2022 Platelets (Bld) [#/Vol] 164 10*3/uL 150-450 [facility] Work Phone: [phone] Serum or plasma albumin aubree urement (mass/volume)on 03-29-2022 Albumin [Mass/Vol] 3.0 g/dL 3.2-5.0 [facility] Work Phone: [phone] Serum or plasma calcium aubree urement (mass/volume)on 03-29-2022 Calcium [Mass/Vol] 8.1 mg/dL 8.5-10.1 [facility]: Serum or plasma creatinine m easurement (mass/volume)on 03-29-2022 Creatinine [Mass/Vol] 2.22 mg/dL 0.70-1.30 [facility] Work Phone: Comment on above: The validity of the calculated GFR & GFRAA in patients over 70 years has not been determined. Clinical correlation is essential. Serum or plasma ferritin laurie surement (mass/volume)on 03-29-2022 Ferritin [Mass/Vol] 209 ng/mL 26-388 [facility] Work Phone: Serum or plasma iron saturat ion measurement (mass fraction)on 03-29-2022 Iron saturation [Mass fraction] 29.3 % 15.0-55.0 [facility] Work Phone: Serum or plasma urea nitroge n measurement (mass/volume)on 03-29-2022 Urea nitrogen [Mass/Vol] 61 mg/dL 7-18 [facility] Work Phone: Serum or plasma uric acid me asurement (mass/volume)on 03-29-2022 Urate [Mass/Vol] 5.8 mg/dL 3.5-7.2 [facility] Work Phone: Comment on above: The drugs N-Acetylcy steine and Metamizole may falsely depress this assay. Urine creatinine measurement (mass/volume)on 03-29-2022 Creatinine (U) [Mass/Vol] 90.50 mg/dL NO RANGE EST. [facility] Work Phone: Urine protein measurement (m ass/volume)on 03-29-2022 Protein (U) [Mass/Vol] 81.6 mg/dL 0.0-11.[address] [facility] Work Phone: [phone] Urine protein/creatinine mas s ratioon 03-29-2022 Protein/Creatinine (U) [Mass ratio] 902 mg/g CRE 0-200 [facility] Work Phone: Absolute lymphocyte counton 03-15-2022 Lymphocytes Auto (Unsp spec) [#/Vol] 1.54 10*3/uL 0.83-4.51 [facility] Work Phone: Basophil percentageon 2021 Basophil percentage 3.0 mg/dL 2.5-4.9 [facility] Work [facility]: Basophils/100 WBC (Bld) 0.3 % 0-1 [facility] Work Phone: Chloride [Moles/Vol] 108 mmol/L 98-107 [facility] Work Phone: Eosinophils/100 WBC (Bld) 1.4 % 0-5 [facility] Work Phone: Glucose [Mass/Vol] 233 mg/dL 74-106 [facility] Work Phone: Comment on above: Glucose result great er than or equal to 200 mg/dLsuggests DIABETES MELLITUS per A.D.A. criteria. Neutrophils (Bld) [#/Vol] 7.0 10*3/uL 2.0-7.7 [facility] Work Phone: Neutrophils/100 WBC (Bld) 74.8 % 47-70 [facility] Work Phone: Potassium [Moles/Vol] 4.5 mmol/L 3.5-5.1 [facility] Work Phone: Sodium [Moles/Vol] 139 mmol/L 136-145 [facility] Work Phone: WBC (Bld) [#/Vol] 9.3 10*3/uL 4.4-11.0 [facility] Work Phone: Blood erythrocytes count (nu mber/volume)on 03-15-2022 RBC (Bld) [#/Vol] 3.12 10*6/uL 4.6-6.2 [facility] Work [facility]: Blood hemoglobin measurement (mass/volume)on 03-15-2022 Hemoglobin (Bld) [Mass/Vol] 9.9 g/dL 13.0-16.5 [facility] Work Phone: Blood lymphocytes/100 leukoc yteson 03-15-2022 Lymphocytes/100 WBC (Bld) 16.5 % 19-41 [facility] Work Phone: Blood monocytes/100 leukocyt eson 03-15-2022 Monocytes/100 WBC (Bld) 5.6 % 0-10 [facility] Work Phone: Blood platelet mean volumeon 03-15-2022 Platelet mean volume (Bld) [Entitic vol] 9.9 fL 6.2-12.0 [facility] Work Phone: Determination of erythrocyte mean corpuscular volume (MCV)on 03-15-2022 MCV (RBC) [Entitic vol] 100.6 fL 80-94 [facility] Work Phone: Hematocrit Auto (Bld) [Volum e fraction]on 03-15-2022 Hematocrit (Bld) [Volume fraction] 31.4 % 40-54 [facility] Work Phone: Iron measurement (mass/mass) on 03-15-2022 Iron (Unsp spec) [Mass/Mass] 69 ug/dL 65-175 [facility] Work Phone: Laboratory - Chemistry and C hemistry - challengeon 03-15-2022 CO2 [Moles/Vol] 25.0 mmol/L 21.0-32.0 [facility] Work Phone: Urea nitrogen/Creatinine [Mass ratio] 31.6 mg/mg 10-20 [facility] Work Phone: Laboratory - Hematology and Cell countson 03-15-2022 Erythrocyte distribution width (RBC) [Entitic vol] 56.5 fL 35.1-43.9 [facility] Work Phone: Erythrocyte distribution width (RBC) [Ratio] 15.5 % 11.6-14.6 [facility] Work Phone: Immature granulocytes/100 WBC (Bld) 1.400 % 0.0-0.9 [facility] Work Phone: Comment on above: IG% - Immature Granu locytes (promyelocytes, myelocytes and metamyelocytes) > 1% indicates that a LEFT SHIFT is Present. MCH (RBC) [Entitic mass] 31.7 pg 27.0-32.0 [facility] Work Phone: Nucleated RBC/100 WBC (Bld) [Ratio] 0 % 0-5 [facility] Work Phone: [phone] MCHC Auto (RBC) [Mass/Vol]on 03-15-2022 MCHC (RBC) [Mass/Vol] 31.5 g/dL 32-36 [facility] Work Phone: No Panel Informationon 03-15 Estimated Creatinine Clearance Calc 17.61 ml/min [facility] Work Phone: Estimated GFR (MDRD) Amer 27 mL/min >60 [facility] Work Phone: [phone] Comment on above: GFR Calc Estimated GFR (MDRD) Non-Af Amer 22 mL/min >60 [facility] Work Phone: Comment on above: Non- GFR Calc Parathyroid Hormone (Intact) 89.0 pg/mL 18.4-80.1 [facility] Work Phone: Total Iron Binding Capacity 254 ug/dL 250-450 [facility] Work Phone: Platelets bldon 03-15-2022 Platelets (Bld) [#/Vol] 134 10*3/uL 150-450 [facility] Work Phone: [phone] Serum or plasma albumin aubree urement (mass/volume)on 03-15-2022 Albumin [Mass/Vol] 3.1 g/dL 3.2-5.0 [facility] Work Phone: [phone] Serum or plasma calcium aubree urement (mass/volume)on 03-15-2022 Calcium [Mass/Vol] 8.9 mg/dL 8.5-10.1 [facility] Work Phone: [phone] Serum or plasma creatinine m easurement (mass/volume)on 03-15-2022 Creatinine [Mass/Vol] 2.91 mg/dL 0.70-1.30 [facility] Work Phone: Comment on above: The validity of the calculated GFR & GFRAA in patients over 70 years has not been determined. Clinical correlation is essential. Serum or plasma ferritin laurie surement (mass/volume)on 03-15-2022 Ferritin [Mass/Vol] 237 ng/mL 26-388 [facility] Work Phone: [phone] Serum or plasma iron saturat ion measurement (mass fraction)on 03-15-2022 Iron saturation [Mass fraction] 27.2 % 15.0-55.0 [facility] Work Phone: [phone] Serum or plasma urea nitroge n measurement (mass/volume)on 03-15-2022 Urea nitrogen [Mass/Vol] 92 mg/dL -18 [facility] Work Phone: [phone] Absolute lymphocyte counton 02-15-2022 Lymphocytes Auto (Unsp spec) [#/Vol] 1.47 10*3/uL 0.83-4.51 [facility] Work Phone: Basophil percentageon 2021 Basophil percentage 3.3 mg/dL 2.5-4.9 [facility] Work Phone: Basophils/100 WBC (Bld) 0.2 % 0-1 [facility] Work Phone: Chloride [Moles/Vol] 110 mmol/L 98-107 [facility]: Eosinophils/100 WBC (Bld) 1.4 % 0-5 [facility] Work Phone: Glucose [Mass/Vol] 139 mg/dL 74-106 [facility] Work Phone: Comment on above: Fasting Glucose resu lt greater than or equal to 126 mg/dL suggests DIABETES MELLITUS per A.D.A. criteria. Neutrophils (Bld) [#/Vol] 7.7 10*3/uL 2.0-7.7 [facility] Work Phone: Neutrophils/100 WBC (Bld) 76.8 % 47-70 [facility] Work Phone: Potassium [Moles/Vol] 4.7 mmol/L 3.5-5.1 [facility] Work Phone: Sodium [Moles/Vol] 141 mmol/L 136-145 [facility]: WBC (Bld) [#/Vol] 10.0 10*3/uL 4.4-11.0 [facility] Work Phone: Blood erythrocytes count (nu mber/volume)on 02-15-2022 RBC (Bld) [#/Vol] 3.28 10*6/uL 4.6-6.2 [facility] Work Phone: [phone] Blood hemoglobin measurement (mass/volume)on 02-15-2022 Hemoglobin (Bld) [Mass/Vol] 10.6 g/dL 13.0-16.5 [facility] Work Phone: Blood lymphocytes/100 leukoc yteson 02-15-2022 Lymphocytes/100 WBC (Bld) 14.8 % 19-41 [facility] Work Phone: [phone] Blood monocytes/100 leukocyt eson 02-15-2022 Monocytes/100 WBC (Bld) 6.4 % 0-10 [facility] Work Phone: [phone] Blood platelet mean volumeon 02-15-2022 Platelet mean volume (Bld) [Entitic vol] 10.0 fL 6.2-12.0 [facility] Work Phone: Determination of erythrocyte mean corpuscular volume (MCV)on 02-15-2022 MCV (RBC) [Entitic vol] 98.8 fL 80-94 [facility] Work Phone: Hematocrit Auto (Bld) [Volum e fraction]on 02-15-2022 Hematocrit (Bld) [Volume fraction] 32.4 % 40-54 [facility] Work Phone: [phone] Iron measurement (mass/mass) on 02-15-2022 Iron (Unsp spec) [Mass/Mass] 78 ug/dL 65-175 [facility] Work Phone: Laboratory - Chemistry and C hemistry - challengeon 02-15-2022 CO2 [Moles/Vol] 27.0 mmol/L 21.0-32.0 [facility] Work Phone: [phone] Urea nitrogen/Creatinine [Mass ratio] 34.2 mg/mg 10-20 [facility] Work Phone: [phone] Laboratory - Hematology and Cell countson 02-15-2022 Erythrocyte distribution width (RBC) [Entitic vol] 53.1 fL 35.1-43.9 [facility] Work Phone: [phone] Erythrocyte distribution width (RBC) [Ratio] 14.8 % 11.6-14.6 [facility] Work Phone: [phone] Immature granulocytes/100 WBC (Bld) 0.400 % 0.0-0.9 [facility] Work Phone: [phone] Comment on above: IG% - Immature Granu locytes (promyelocytes, myelocytes and metamyelocytes) > 1% indicates that a LEFT SHIFT is Present. MCH (RBC) [Entitic mass] 32.3 pg 27.0-32.0 [facility] Work Phone: Nucleated RBC/100 WBC (Bld) [Ratio] 0 % 0-5 [facility] Work Phone: [phone] MCHC Auto (RBC) [Mass/Vol]on 02-15-2022 MCHC (RBC) [Mass/Vol] 32.7 g/dL 32-36 [facility] Work Phone: No Panel Informationon 02-15 Estimated GFR (MDRD) Amer 37 mL/min >60 [facility] Work Phone: [phone] Comment on above: GFR Calc Estimated GFR (MDRD) Non-Af Amer 31 mL/min >60 [facility] Work Phone: [phone] Comment on above: Non- GFR Calc Total Iron Binding Capacity 250 ug/dL 250-450 [facility] Work Phone: Platelets bldon 02-15-2022 Platelets (Bld) [#/Vol] 127 10*3/uL 150-450 [facility] Work Phone: [phone] Serum or plasma albumin aubree urement (mass/volume)on 02-15-2022 Albumin [Mass/Vol] 3.2 g/dL 3.2-5.0 [facility] Work Phone: [phone] Serum or plasma calcium aubree urement (mass/volume)on 02-15-2022 Calcium [Mass/Vol] 9.3 mg/dL 8.5-10.1 [facility] Work Phone: [phone] Serum or plasma creatinine m easurement (mass/volume)on 02-15-2022 Creatinine [Mass/Vol] 2.19 mg/dL 0.70-1.30 [facility] [place] Work Phone: Comment on above: The validity of the calculated GFR & GFRAA in patients over 70 years has not been determined. Clinical correlation is essential. Serum or plasma ferritin laurie surement (mass/volume)on 02-15-2022 Ferritin [Mass/Vol] 257 ng/mL 26-388 [facility] Work Phone: [phone] Serum or plasma iron saturat ion measurement (mass fraction)on 02-15-2022 Iron saturation [Mass fraction] 31.2 % 15.0-55.0 [facility] Work Phone: [phone] Serum or plasma urea nitroge n measurement (mass/volume)on 02-15-2022 Urea nitrogen [Mass/Vol] 75 mg/dL 7-18 [facility] Work Phone: Basophil percentageon 2021 Chloride [Moles/Vol] 105 mmol/L 98-107 [facility] Work Phone: [phone] Glucose [Mass/Vol] 120 mg/dL 74-106 [facility] Work Phone: [phone] Comment on above: Fasting Glucose resu lt from 100 to 125 mg/dL suggests IMPAIRED HOMEOSTASIS per A.D.A. criteria. Potassium [Moles/Vol] 4.8 mmol/L 3.5-5.1 [facility] Work Phone: [phone] Sodium [Moles/Vol] 138 mmol/L 136-145 [facility] Work Phone: [phone] WBC (Bld) [#/Vol] 10.6 10*3/uL 4.4-11.0 [facility] Work Phone: Blood erythrocytes count (nu mber/volume)on 01-25-2022 RBC (Bld) [#/Vol] 4.06 10*6/uL 4.6-6.2 [facility] Work Phone: Blood hemoglobin measurement (mass/volume)on 01-25-2022 Hemoglobin (Bld) [Mass/Vol] 12.7 g/dL 13.0-16.5 [facility] Work Phone: [phone] Blood platelet mean volumeon 01-25-2022 Platelet mean volume (Bld) [Entitic vol] 10.6 fL 6.2-12.0 [facility] Work Phone: Determination of erythrocyte mean corpuscular volume (MCV)on 01-25-2022 MCV (RBC) [Entitic vol] 97.5 fL 80-94 [facility] Work Phone: [phone] Hematocrit Auto (Bld) [Volum e fraction]on 01-25-2022 Hematocrit (Bld) [Volume fraction] 39.6 % 40-54 [facility] Work Phone: Laboratory - Chemistry and C hemistry - challengeon 01-25-2022 CO2 [Moles/Vol] 31.0 mmol/L 21.0-32.0 [facility] Work Phone: Urea nitrogen/Creatinine [Mass ratio] 34.9 mg/mg 10-20 [facility] Work Phone: [phone] Laboratory - Hematology and Cell countson 01-25-2022 Erythrocyte distribution width (RBC) [Entitic vol] 52.1 fL 35.1-43.9 [facility] Work Phone: [phone] Erythrocyte distribution width (RBC) [Ratio] 14.5 % 11.6-14.6 [facility] Work Phone: MCH (RBC) [Entitic mass] 31.3 pg 27.0-32.0 [facility] Work Phone: MCHC Auto (RBC) [Mass/Vol]on 01-25-2022 MCHC (RBC) [Mass/Vol] 32.1 g/dL 32-36 [facility] Work Phone: No Panel Informationon 01-25 Estimated GFR (MDRD) Amer 38 mL/min >60 [facility] Work Phone: Comment on above: GFR Calc Estimated GFR (MDRD) Non-Af Amer 31 mL/min >60 [facility] Work Phone: Comment on above: Non- GFR Calc Platelets bldon 01-25-2022 Platelets (Bld) [#/Vol] 151 10*3/uL 150-450 [facility] Work Phone: Serum or plasma calcium aubree urement (mass/volume)on 01-25-2022 Calcium [Mass/Vol] 8.8 mg/dL 8.5-10.1 [facility] Work Phone: Serum or plasma creatinine m easurement (mass/volume)on 01-25-2022 Creatinine [Mass/Vol] 2.18 mg/dL 0.70-1.30 [facility] Work Phone: Comment on above: The validity of the calculated GFR & GFRAA in patients over 70 years has not been determined. Clinical correlation is essential. Serum or plasma urea nitroge n measurement (mass/volume)on 01-25-2022 Urea nitrogen [Mass/Vol] 76 mg/dL 7-18 [facility] Work Phone: [phone] Thin prep Papanicolaou smear with manual screeningon 01-25-2022 Thin prep Papanicolaou smear with manual screening 2 5-15 [facility] Work Phone: [phone] Whole blood hemoglobin A1c/t otal hemoglobin ratio (mass fraction)on 01-25-2022 HbA1c (Bld) [Mass fraction] 6.6 % 3.8-5.6 [facility] Work Phone: Comment on above: Normal < 5.7 % Predi abetic 5.7 - 6.4 % Diabetic >or= 6.5 % Please note range changes. Absolute lymphocyte counton 01-18-2022 Lymphocytes Auto (Unsp spec) [#/Vol] 1.51 10*3/uL 0.83-4.51 [facility] Work Phone: Basophil percentageon 2021 Basophil percentage 2.4 mg/dL 2.5-4.9 [facility]: Basophils/100 WBC (Bld) 0.3 % 0-1 [facility] Work Phone: Chloride [Moles/Vol] 105 mmol/L 98-107 [facility] Work Phone: Eosinophils/100 WBC (Bld) 0.6 % 0-5 [facility] Work Phone: Glucose [Mass/Vol] 225 mg/dL 74-106 [facility] Work Phone: Comment on above: Glucose result great er than or equal to 200 mg/dLsuggests DIABETES MELLITUS per A.D.A. criteria. Neutrophils (Bld) [#/Vol] 7.7 10*3/uL 2.0-7.7 [facility] Work Phone: Neutrophils/100 WBC (Bld) 77.2 % 47-70 [facility] Work Phone: Potassium [Moles/Vol] 4.4 mmol/L 3.5-5.1 [facility] Work Phone: Sodium [Moles/Vol] 138 mmol/L 136-145 [facility] Work Phone: WBC (Bld) [#/Vol] 9.9 10*3/uL 4.4-11.0 [facility] Work Phone: Blood erythrocytes count (nu mber/volume)on 01-18-2022 RBC (Bld) [#/Vol] 3.88 10*6/uL 4.6-6.2 [facility] Work [facility]: Blood hemoglobin measurement (mass/volume)on 01-18-2022 Hemoglobin (Bld) [Mass/Vol] 12.3 g/dL 13.0-16.5 [facility] Work Phone: Blood lymphocytes/100 leukoc yteson 01-18-2022 Lymphocytes/100 WBC (Bld) 15.2 % 19-41 [facility] Work Phone: Blood monocytes/100 leukocyt eson 01-18-2022 Monocytes/100 WBC (Bld) 6.3 % 0-10 [facility] Work Phone: Blood platelet mean volumeon 01-18-2022 Platelet mean volume (Bld) [Entitic vol] 10.9 fL 6.2-12.0 [facility] Work Phone: Determination of erythrocyte mean corpuscular volume (MCV)on 01-18-2022 MCV (RBC) [Entitic vol] 95.6 fL 80-94 [facility] Work Phone: Hematocrit Auto (Bld) [Volum e fraction]on 01-18-2022 Hematocrit (Bld) [Volume fraction] 37.1 % 40-54 [facility] Work Phone: Iron measurement (mass/mass) on 01-18-2022 Iron (Unsp spec) [Mass/Mass] 94 ug/dL 65-175 [facility] Work Phone: Laboratory - Chemistry and C hemistry - challengeon 01-18-2022 CO2 [Moles/Vol] 27.0 mmol/L 21.0-32.0 [facility] Work Phone: Urea nitrogen/Creatinine [Mass ratio] 37.1 mg/mg 10-20 [facility] Work Phone: Laboratory - Hematology and Cell countson 01-18-2022 Erythrocyte distribution width (RBC) [Entitic vol] 51.5 fL 35.1-43.9 [facility] Work Phone: Erythrocyte distribution width (RBC) [Ratio] 14.8 % 11.6-14.6 [facility] Work Phone: Immature granulocytes/100 WBC (Bld) 0.400 % 0.0-0.9 [facility] Work Phone: Comment on above: IG% - Immature Granu locytes (promyelocytes, myelocytes and metamyelocytes) > 1% indicates that a LEFT SHIFT is Present. MCH (RBC) [Entitic mass] 31.7 pg 27.0-32.0 [facility] Work Phone: Nucleated RBC/100 WBC (Bld) [Ratio] 0 % 0-5 [facility] Work Phone: MCHC Auto (RBC) [Mass/Vol]on 01-18-2022 MCHC (RBC) [Mass/Vol] 33.2 g/dL 32-36 [facility] Work Phone: No Panel Informationon 01-18 Estimated GFR (MDRD) Amer 37 mL/min >60 [facility] Work Phone: Comment on above: GFR Calc Estimated GFR (MDRD) Non-Af Amer 31 mL/min >60 [facility] Work Phone: Comment on above: Non- GFR Calc Total Iron Binding Capacity 239 ug/dL 250-450 [facility] Work Phone: Platelets bldon 01-18-2022 Platelets (Bld) [#/Vol] 143 10*3/uL 150-450 [facility] Work Phone: [phone] Serum or plasma albumin aubree urement (mass/volume)on 01-18-2022 Albumin [Mass/Vol] 3.2 g/dL 3.2-5.0 [facility] Work Phone: [phone] Serum or plasma calcium aubree urement (mass/volume)on 01-18-2022 Calcium [Mass/Vol] 8.4 mg/dL 8.5-10.1 [facility] Work Phone: Serum or plasma creatinine m easurement (mass/volume)on 01-18-2022 Creatinine [Mass/Vol] 2.21 mg/dL 0.70-1.30 [facility] Work Phone: Comment on above: The validity of the calculated GFR & GFRAA in patients over 70 years has not been determined. Clinical correlation is essential. Serum or plasma ferritin laurie surement (mass/volume)on 01-18-2022 Ferritin [Mass/Vol] 241 ng/mL 26-388 [facility] Work Phone: Serum or plasma iron saturat ion measurement (mass fraction)on 01-18-2022 Iron saturation [Mass fraction] 39.3 % 15.0-55.0 [facility] Work Phone: Serum or plasma urea nitroge n measurement (mass/volume)on 01-18-2022 Urea nitrogen [Mass/Vol] 82 mg/dL 7-18 [facility] Work Phone: Absolute lymphocyte counton 12-21-2021 Lymphocytes Auto (Unsp spec) [#/Vol] 1.78 10*3/uL 0.83-4.51 [facility] Work Phone: Basophil percentageon 2021 Basophil percentage 2.6 mg/dL 2.5-4.9 [facility] Work Phone: Basophils/100 WBC (Bld) 0.5 % 0-1 [facility] Work Phone: Chloride [Moles/Vol] 107 mmol/L 98-107 [facility] Work Phone: [phone] Eosinophils/100 WBC (Bld) 4.2 % 0-5 [facility] Work Phone: Glucose [Mass/Vol] 159 mg/dL 74-106 [facility] Work Phone: Comment on above: Fasting Glucose resu lt greater than or equal to 126 mg/dL suggests DIABETES MELLITUS per A.D.A. criteria. Neutrophils (Bld) [#/Vol] 5.0 10*3/uL 2.0-7.7 [facility] Work Phone: Neutrophils/100 WBC (Bld) 64.1 % 47-70 [facility] Work Phone: Potassium [Moles/Vol] 4.5 mmol/L 3.5-5.1 [facility] Work Phone: Sodium [Moles/Vol] 138 mmol/L 136-145 [facility] Work Phone: WBC (Bld) [#/Vol] 7.8 10*3/uL 4.4-11.0 [facility] Work Phone: Blood erythrocytes count (nu mber/volume)on 12-21-2021 RBC (Bld) [#/Vol] 3.63 10*6/uL 4.6-6.2 [facility] Work [facility]: Blood hemoglobin measurement (mass/volume)on 12-21-2021 Hemoglobin (Bld) [Mass/Vol] 11.3 g/dL 13.0-16.5 [facility] Work Phone: Blood lymphocytes/100 leukoc yteson 12-21-2021 Lymphocytes/100 WBC (Bld) 22.7 % 19-41 [facility] Work Phone: Blood monocytes/100 leukocyt eson 12-21-2021 Monocytes/100 WBC (Bld) 8.0 % 0-10 [facility] Work Phone: Blood platelet mean volumeon 12-21-2021 Platelet mean volume (Bld) [Entitic vol] 10.4 fL 6.2-12.0 [facility] Work Phone: Determination of erythrocyte mean corpuscular volume (MCV)on 12-21-2021 MCV (RBC) [Entitic vol] 95.0 fL 80-94 [facility] Work Phone: Hematocrit Auto (Bld) [Volum e fraction]on 12-21-2021 Hematocrit (Bld) [Volume fraction] 34.5 % 40-54 [facility] Work Phone: [phone] Iron measurement (mass/mass) on 12-21-2021 Iron (Unsp spec) [Mass/Mass] 79 ug/dL 65-175 [facility] Work Phone: [phone] Laboratory - Chemistry and C hemistry - challengeon 12-21-2021 CO2 [Moles/Vol] 26.0 mmol/L 21.0-32.0 [facility] Work Phone: [phone] Urea nitrogen/Creatinine [Mass ratio] 31.5 mg/mg 10-20 [facility] Work Phone: [phone] Laboratory - Hematology and Cell countson 12-21-2021 Erythrocyte distribution width (RBC) [Entitic vol] 51.0 fL 35.1-43.9 [facility] Work Phone: [phone] Erythrocyte distribution width (RBC) [Ratio] 14.8 % 11.6-14.6 [facility] Work Phone: [phone] Immature granulocytes/100 WBC (Bld) 0.500 % 0.0-0.9 [facility] Work Phone: [phone] Comment on above: IG% - Immature Granu locytes (promyelocytes, myelocytes and metamyelocytes) > 1% indicates that a LEFT SHIFT is Present. MCH (RBC) [Entitic mass] 31.1 pg 27.0-32.0 [facility] Work Phone: [phone] Nucleated RBC/100 WBC (Bld) [Ratio] 0 % 0-5 [facility] Work Phone: [phone] MCHC Auto (RBC) [Mass/Vol]on 12-21-2021 MCHC (RBC) [Mass/Vol] 32.8 g/dL 32-36 [facility] Work Phone: [phone] No Panel Informationon 12-21 Estimated GFR (MDRD) Amer 32 mL/min >60 [facility] Work Phone: [phone] Comment on above: GFR Calc Estimated GFR (MDRD) Non-Af Amer 26 mL/min >60 [facility] Work Phone: Comment on above: Non- GFR Calc Parathyroid Hormone (Intact) 43.1 pg/mL 18.4-80.1 [facility] Work Phone: Total Iron Binding Capacity 228 ug/dL 250-450 [facility] Work Phone: Platelets bldon 12-21-2021 Platelets (Bld) [#/Vol] 140 10*3/uL 150-450 [facility] Work Phone: Serum or plasma albumin aubree urement (mass/volume)on 12-21-2021 Albumin [Mass/Vol] 3.0 g/dL 3.2-5.0 [facility] Work Phone: Serum or plasma calcium aubree urement (mass/volume)on 12-21-2021 Calcium [Mass/Vol] 8.9 mg/dL 8.5-10.1 [facility] Work Phone: Serum or plasma creatinine m easurement (mass/volume)on 12-21-2021 Creatinine [Mass/Vol] 2.54 mg/dL 0.70-1.30 [facility] Work Phone: Comment on above: The validity of the calculated GFR & GFRAA in patients over 70 years has not been determined. Clinical correlation is essential. Serum or plasma ferritin laurie surement (mass/volume)on 12-21-2021 Ferritin [Mass/Vol] 356 ng/mL 26-388 [facility] Work Phone: Serum or plasma iron saturat ion measurement (mass fraction)on 12-21-2021 Iron saturation [Mass fraction] 34.6 % 15.0-55.0 [facility] Work Phone: Serum or plasma urea nitroge n measurement (mass/volume)on 12-21-2021 Urea nitrogen [Mass/Vol] 80 mg/dL 7-18 [facility] Work Phone: Vital Signs Date Time Vital Sign Value Performing Clinician Facility 06-20-2025 [id number] Body height 165.[address] Rios Downey DO Work Phone: [facility] 06-20-2025 15:07-0400 Body mass index (BMI) [Ratio] 38.9 kg/m2 Dr. Rios Downey DO Work Phone: [facility] 06-20-2025 15:07-0400 Body weight 106.[address] Rios Downey DO Work Phone: [facility] 06-20-2025 15:07-0400 Diastolic blood pressure 59 mm[Hg] Dr. Rios Downey DO Work Phone: [facility] 06-20-2025 15:07-0400 Heart rate 52 /min Dr. Riso Downey DO Work Phone: [facility] 06-20-2025 15:07-0400 Respiratory rate 18 /min Dr. Rios Downey DO Work Phone: [facility] 06-20-2025 15:07-0400 Systolic blood pressure 125 mm[Hg] Dr. Rios Downey DO Work Phone: [facility] 06-13-2025 10:26-0400 Body mass index (BMI) [Ratio] 40.1 kg/m2 Dr. Rios Downey DO Work Phone: [facility] 06-13-2025 10:26-0400 Body temperature 96.8 [degF] Dr. Rios Downey DO Work Phone: [facility] 06-13-2025 10:26-0400 Body weight 109.[address] Rios Downey DO Work Phone: [facility] 06-13-2025 10:26-0400 Diastolic blood pressure 70 mm[Hg] Dr. Rios Downey DO Work Phone: [facility] 06-13-2025 10:26-0400 Heart rate 54 /min Dr. Rios Downey DO Work Phone: [facility] 06-13-2025 10:26-0400 Inhaled oxygen flow rate 3 L/min Dr. Rios Downey DO Work Phone: [facility] 06-13-2025 10:26-0400 Respiratory rate 20 /min Dr. Rios Downey DO Work Phone: [facility] 06-13-2025 10:26-0400 SaO2% (BldA) [Mass fraction] 91 % Dr. Rios Downey DO Work Phone: [facility] 06-13-2025 10:26-0400 Systolic blood pressure 158 mm[Hg] Dr. Rios Downey DO Work Phone: [facility] 06-01-2025 00:42-0400 Body temperature 97.9 [degF] Dr. Rios Downey DO Work Phone: [facility] 06-01-2025 00:42-0400 Diastolic blood pressure 84 mm[Hg] Dr. Rios Downey DO Work Phone: [facility] 06-01-2025 00:42-0400 Heart rate 51 /min Dr. Rios Downey DO Work Phone: [facility] 06-01-2025 00:42-0400 Respiratory rate 19 /min Dr. Rios Downey DO Work Phone: [facility] 06-01-2025 00:42-0400 SaO2% (BldA) [Mass fraction] 100 % Dr. Rios Downey DO Work Phone: [facility] 06-01-2025 00:42-0400 Systolic blood pressure 144 mm[Hg] Dr. Rios Downey DO Work Phone: [facility] 05-31-2025 22:22-0400 Inhaled oxygen flow rate 5 L/min Dr. Rios Downey DO Work Phone: [facility] 05-31-2025 22:20-0400 Body mass index (BMI) [Ratio] 41 kg/m2 Dr. Rios Doweny DO Work Phone: [facility] 05-31-2025 22:20-0400 Body weight 111.[address] Rios Downey DO Work Phone: [facility] 05-31-2025 22:00-0400 Body height 165.[address] Rios Downey DO Work Phone: [facility] 03-14-2025 08:07-0400 Body mass index (BMI) [Ratio] 39.7 kg/m2 Dr. Rios Downey DO Work Phone: [facility] 03-14-2025 08:07-0400 Body temperature 97.4 [degF] Dr. Rios Downey DO Work Phone: [facility] 03-14-2025 08:07-0400 Body weight 108.[address] Rios Downey DO Work Phone: [facility] 03-14-2025 08:07-0400 Diastolic blood pressure 83 mm[Hg] Dr. Rios Downey DO Work Phone: [facility] 03-14-2025 08:07-0400 Heart rate 50 /min Dr. Rios Downey DO Work Phone: [facility] 03-14-2025 08:07-0400 Inhaled oxygen flow rate 4 L/min Dr. Rios Downey DO Work Phone: [facility] 03-14-2025 08:07-0400 Respiratory rate 20 /min Dr. Rios Downey DO Work Phone: [facility] 03-14-2025 08:07-0400 SaO2% (BldA) [Mass fraction] 99 % Dr. Rios Downey DO Work Phone: [facility] 03-14-2025 08:07-0400 Systolic blood pressure 165 mm[Hg] Dr. Rios Downey DO Work Phone: [facility] 03-23-2024 15:00-0400 Body height 165.[address] Rios Downey Work Phone: [facility] 03-23-2024 15:00-0400 Body mass index (BMI) [Ratio] 38.9 kg/m2 Dr. Rios Downey Work Phone: [facility] 03-23-2024 15:00-0400 Body weight 106.[address] Rios Downey Work Phone: [facility] 03-23-2024 15:00-0400 Diastolic blood pressure 68 mm[Hg] Dr. Rios Downey Work Phone: [facility] 03-23-2024 15:00-0400 Heart rate 73 /min Dr. Rios Downey Work Phone: [facility] 03-23-2024 15:00-0400 Inhaled oxygen flow rate 5 L/min Dr. Rios Downey Work Phone: [facility] 03-23-2024 15:00-0400 Respiratory rate 22 /min Dr. Rios Downey Work Phone: [facility] 03-23-2024 15:00-0400 SaO2% (BldA) [Mass fraction] 96 % Dr. Rios Downey Work Phone: [facility] 03-23-2024 15:00-0400 Systolic blood pressure 111 mm[Hg] Dr. Rios Downey Work Phone: [facility] 02-19-2024 16:28-0400 Body temperature 97.6 [degF] [facility] 02-19-2024 16:28-0400 Diastolic blood pressure 72 mm[Hg] [facility] 02-19-2024 16:28-0400 Heart rate 52 /min [place] 02-19-2024 16:28-0400 Respiratory rate 17 /min [facility] 02-19-2024 16:28-0400 SaO2% (BldA) [Mass fraction] 95 % [facility] 02-19-2024 16:28-0400 Systolic blood pressure 149 mm[Hg] [facility] 02-19-2024 13:00-0400 Inhaled oxygen flow rate 2 L/min [facility] 02-19-2024 12:32-0400 Body mass index (BMI) [Ratio] 39.4 kg/m2 [facility] 02-19-2024 12:32-0400 Body weight 107.4 kg [place] 02-19-2024 11:34-0400 Body height 165.1 cm [place] 02-16-2024 03:00-0400 Body temperature 97.7 [degF] [facility] 02-16-2024 03:00-0400 Diastolic blood pressure 100 mm[Hg] [facility] 02-16-2024 03:00-0400 Heart rate 57 /min [place] 02-16-2024 03:00-0400 Respiratory rate 18 /min [facility] 02-16-2024 03:00-0400 SaO2% (BldA) [Mass fraction] 98 % [facility] 02-16-2024 03:00-0400 Systolic blood pressure 135 mm[Hg] [facility] 02-15-2024 23:56-0400 Body mass index (BMI) [Ratio] 38.6 kg/m2 [facility] 02-15-2024 23:56-0400 Body weight 105.4 kg [place] 02-15-2024 22:56-0400 Body height 165.1 cm [place] 02-15-2024 22:56-0400 Inhaled oxygen flow rate 2 L/min [facility] 11-23-2023 15:42-0500 Body height 165.[address] Rios Downey Work Phone: [facility] 11-23-2023 15:42-0500 Body mass index (BMI) [Ratio] 41.5 kg/m2 Dr. Rios Downey Work Phone: [facility] 11-23-2023 15:42-0500 Body temperature 97.4 [degF] Dr. Rios Downey Work Phone: [facility] 11-23-2023 15:42-0500 Body weight 113.[address] Rios Downey Work Phone: [facility] 11-23-2023 15:42-0500 Diastolic blood pressure 53 mm[Hg] Dr. Rios Downey Work Phone: [facility] 11-23-2023 15:42-0500 Heart rate 61 /min Dr. Rios Downey Work Phone: [facility] 11-23-2023 15:42-0500 Inhaled oxygen flow rate 2 L/min Dr. Rios Downey Work Phone: [facility] 11-23-2023 15:42-0500 Respiratory rate 16 /min Dr. Rios Downey Work Phone: [facility] 11-23-2023 15:42-0500 Systolic blood pressure 101 mm[Hg] Dr. Rios Downey Work Phone: [facility] 10-05-2023 07:44-0500 Body height 165.[address] Rios Downey Work Phone: [facility] 10-05-2023 07:44-0500 Body mass index (BMI) [Ratio] 41.4 kg/m2 Dr. Rios Downey Work Phone: [facility] 10-05-2023 07:44-0500 Body temperature 98.5 [degF] Dr. Rios Downey Work Phone: [facility] 10-05-2023 07:44-0500 Body weight 112.[address] Rios Downey Work Phone: [facility] 10-05-2023 07:44-0500 Diastolic blood pressure 59 mm[Hg] Dr. Rios Downey Work Phone: [facility] 10-05-2023 07:44-0500 Heart rate 65 /min Dr. Rios Downey Work Phone: [facility] 10-05-2023 07:44-0500 Inhaled oxygen flow rate 2 L/min Dr. Rios Downey Work Phone: [facility] 10-05-2023 07:44-0500 Respiratory rate 17 /min Dr. Rios Downey Work Phone: [facility] 10-05-2023 07:44-0500 SaO2% (BldA) [Mass fraction] 94 % Dr. Rios Downey Work Phone: [facility] 10-05-2023 07:44-0500 Systolic blood pressure 109 mm[Hg] Dr. Rios Downey Work Phone: [facility] 09-28-2023 15:55-0400 Body height 165.[address] Rios Downey Work Phone: [facility] 09-28-2023 15:55-0400 Body mass index (BMI) [Ratio] 41.4 kg/m2 Dr. Rios Downey Work Phone: [facility] 09-28-2023 15:55-0400 Body temperature 97.9 [degF] Dr. Rios Downey Work Phone: [facility] 09-28-2023 15:55-0400 Body weight 112.[address] Rios Downey Work Phone: [facility] 09-28-2023 15:55-0400 Diastolic blood pressure 72 mm[Hg] Dr. Rios Downey Work Phone: [facility] 09-28-2023 15:55-0400 Heart rate 54 /min Dr. Rios Downey Work Phone: [facility] 09-28-2023 15:55-0400 Inhaled oxygen flow rate 2 L/min Dr. Rios Downey Work Phone: [facility] 09-28-2023 15:55-0400 Respiratory rate 18 /min Dr. Rios Downey Work Phone: [facility] 09-28-2023 15:55-0400 SaO2% (BldA) [Mass fraction] 96 % Dr. Rios Downey Work Phone: [facility] 09-28-2023 15:55-0400 Systolic blood pressure 154 mm[Hg] Dr. Rios Downey Work Phone: [facility] 09-22-2023 16:45-0400 Body temperature 98.1 [degF] Dr. Rios Downey Work Phone: [facility] 09-22-2023 16:45-0400 Diastolic blood pressure 74 mm[Hg] Dr. Rios Downey Work Phone: [facility] 09-22-2023 16:45-0400 Heart rate 66 /min Dr. Rios Downey Work Phone: [facility] 09-22-2023 16:45-0400 Inhaled oxygen flow rate 5 L/min Dr. Rios Downey Work Phone: [facility] 09-22-2023 16:45-0400 Respiratory rate 18 /min Dr. Rios Downey Work Phone: [facility] 09-22-2023 16:45-0400 SaO2% (BldA) [Mass fraction] 95 % Dr. Rios Downey Work Phone: [facility] 09-22-2023 16:45-0400 Systolic blood pressure 143 mm[Hg] Dr. Rios Downey Work Phone: [facility] 09-22-2023 02:48-0400 Body mass index (BMI) [Ratio] 41.6 kg/m2 Dr. Rios Downey Work Phone: [facility] 09-22-2023 02:48-0400 Body weight 113.[address] Rios Downey Work Phone: [facility] 09-20-2023 22:50-0400 Inhaled oxygen concentration 30 % Dr. Rios Downey Work Phone: [facility] 09-17-2023 11:05-0400 Body height 165.[address] Rios Downey Work Phone: [facility] 09-16-2023 20:02-0400 Diastolic blood pressure 77 mm[Hg] Dr. Rios Downey Work Phone: [facility] 09-16-2023 20:02-0400 Heart rate 56 /min Dr. Rios Downey Work Phone: [facility] 09-16-2023 20:02-0400 Inhaled oxygen flow rate 6 L/min Dr. Rois Downey Work Phone: [facility] 09-16-2023 20:02-0400 Respiratory rate 14 /min Dr. Rios Downey Work Phone: [facility] 09-16-2023 20:02-0400 SaO2% (BldA) [Mass fraction] 99 % Dr. Rios Downey Work Phone: [facility] 09-16-2023 20:02-0400 Systolic blood pressure 144 mm[Hg] Dr. Rios Downey Work Phone: [facility] 09-16-2023 19:15-0400 Body temperature 96.6 [degF] Dr. iRos Downey Work Phone: [facility] 09-16-2023 16:12-0400 Body mass index (BMI) [Ratio] 43.5 kg/m2 Dr. Rios Downey Work Phone: [facility] 09-16-2023 16:12-0400 Body weight 118.[address] Rios Downey Work Phone: [facility] 09-16-2023 15:20-0400 Body height 165.[address] Rios Downey Work Phone: [facility] 08-31-2023 15:55-0400 Body temperature 96.9 [degF] Dr. Rios Downey Work Phone: [facility] 08-31-2023 15:55-0400 Diastolic blood pressure 83 mm[Hg] Dr. Rios Downey Work Phone: [facility] 08-31-2023 15:55-0400 Heart rate 60 /min Dr. Rios Downey Work Phone: [facility] 08-31-2023 15:55-0400 Inhaled oxygen flow rate 2 L/min Dr. Rios Downey Work Phone: [facility] 08-31-2023 15:55-0400 Respiratory rate 18 /min Dr. Rios Downey Work Phone: [facility] 08-31-2023 15:55-0400 SaO2% (BldA) [Mass fraction] 93 % Dr. Rios Downey Work Phone: [facility] 08-31-2023 15:55-0400 Systolic blood pressure 158 mm[Hg] Dr. Rios Downey Work Phone: [facility] 08-22-2023 15:36-0400 Body temperature 97.8 [degF] Dr. Rios Downey Work Phone: [facility] 08-22-2023 15:36-0400 Diastolic blood pressure 60 mm[Hg] Dr. Rios Downey Work Phone: [facility] 08-22-2023 15:36-0400 Heart rate 71 /min Dr. Rios Downey Work Phone: [facility] 08-22-2023 15:36-0400 Inhaled oxygen flow rate 3 L/min Dr. Rios Downey Work Phone: [facility] 08-22-2023 15:36-0400 Respiratory rate 16 /min Dr. Rios Downey Work Phone: [facility] 08-22-2023 15:36-0400 SaO2% (BldA) [Mass fraction] 100 % Dr. Rios Downey Work Phone: [facility] 08-22-2023 15:36-0400 Systolic blood pressure 124 mm[Hg] Dr. Rios Downey Work Phone: [facility] 08-22-2023 04:29-0400 Body mass index (BMI) [Ratio] 41.1 kg/m2 Dr. Rios Downey Work Phone: [facility] 08-22-2023 04:29-0400 Body weight 112.[address] Rios Downey Work Phone: [facility] 08-19-2023 11:06-0400 Body height 165.[address] Rios Downey Work Phone: [facility] 08-18-2023 16:35-0400 Diastolic blood pressure 52 mm[Hg] Dr. Rios Downey Work Phone: [facility] 08-18-2023 16:35-0400 Heart rate 61 /min Dr. Rios Downey Work Phone: [facility] 08-18-2023 16:35-0400 Respiratory rate 19 /min Dr. Rios Downey Work Phone: [facility] 08-18-2023 16:35-0400 SaO2% (BldA) [Mass fraction] 98 % Dr. Rios Downey Work Phone: [facility] 08-18-2023 16:35-0400 Systolic blood pressure 119 mm[Hg] Dr. Rios Downey Work Phone: [facility] 08-18-2023 15:00-0400 Body temperature 97.6 [degF] Dr. Rios Downey Work Phone: [facility] 08-18-2023 12:57-0400 Inhaled oxygen flow rate 4 L/min Dr. Rios Downey Work Phone: [facility] 08-18-2023 11:52-0400 Body height 165.[address] Rios Downey Work Phone: [facility] 08-18-2023 11:52-0400 Body mass index (BMI) [Ratio] 45.4 kg/m2 Dr. Rios Downey Work Phone: [facility] 08-18-2023 11:52-0400 Body weight 123.[address] Rios Downey Work Phone: [facility] 08-17-2023 17:59-0400 Body mass index (BMI) [Ratio] 39.9 kg/m2 Dr. Rios Downey Work Phone: [facility] 08-17-2023 17:59-0400 Body weight 108.[address] Rios Downey Work Phone: [facility] 08-17-2023 16:00-0400 Diastolic blood pressure 71 mm[Hg] Dr. Rios Downey Work Phone: [facility] 08-17-2023 16:00-0400 Heart rate 64 /min Dr. Rios Downey Work Phone: [facility] 08-17-2023 16:00-0400 Inhaled oxygen flow rate 4 L/min Dr. Rios Downey Work Phone: [facility] 08-17-2023 16:00-0400 Respiratory rate 16 /min Dr. Rios Downey Work Phone: [facility] 08-17-2023 16:00-0400 SaO2% (BldA) [Mass fraction] 99 % Dr. Rios Downey Work Phone: [facility] 08-17-2023 16:00-0400 Systolic blood pressure 117 mm[Hg] Dr. Rios Downey Work Phone: [facility] 08-16-2023 21:12-0400 Body temperature 98.2 [degF] Dr. Rios Downey Work Phone: [facility] 08-10-2023 20:37-0400 Inhaled oxygen flow rate 4 L/min Dr. Rios Downey Work Phone: [facility] 08-10-2023 20:37-0400 SaO2% (BldA) [Mass fraction] 92 % Dr. Rios Downey Work Phone: [facility] 08-10-2023 20:14-0400 Heart rate 81 /min Dr. Rios Downey Work Phone: [facility] 08-10-2023 20:14-0400 Respiratory rate 18 /min Dr. Rios Downey Work Phone: [facility] 08-10-2023 15:40-0400 Body temperature 97.3 [degF] Dr. Rios Downey Work Phone: [facility] 08-10-2023 15:40-0400 Diastolic blood pressure 74 mm[Hg] Dr. Rios Downey Work Phone: [facility] 08-10-2023 15:40-0400 Systolic blood pressure 147 mm[Hg] Dr. Rios Downey Work Phone: [facility] 08-10-2023 14:42-0400 Body height 165.[address] Rios Downey Work Phone: [facility] 08-10-2023 14:42-0400 Body weight 111.[address] Rios Downey Work Phone: [facility] 08-09-2023 06:00-0400 Body mass index (BMI) [Ratio] 40.8 kg/m2 Dr. Rios Downey Work Phone: [facility] 07-27-2023 07:09-0400 Inhaled oxygen flow rate 4 L/min Dr. Rios Downey Work Phone: [facility] 07-27-2023 07:09-0400 SaO2% (BldA) [Mass fraction] 99 % Dr. Rios Downey Work Phone: [facility] 07-27-2023 05:52-0400 Body mass index (BMI) [Ratio] 40.7 kg/m2 Dr. Rios Downey Work Phone: [facility] 07-27-2023 05:52-0400 Body weight 110.[address] Rios Downey Work Phone: [facility] 07-26-2023 16:00-0400 Body temperature 96.1 [degF] Dr. Rios Downey Work Phone: [facility] 07-26-2023 16:00-0400 Diastolic blood pressure 57 mm[Hg] Dr. Rios Downey Work Phone: [facility] 07-26-2023 16:00-0400 Heart rate 60 /min Dr. Rios Downey Work Phone: [facility] 07-26-2023 16:00-0400 Respiratory rate 16 /min Dr. Rios Downey Work Phone: [facility] 07-26-2023 16:00-0400 Systolic blood pressure 116 mm[Hg] Dr. Rios Downey Work Phone: [facility] 07-20-2023 16:11-0400 Body height 165.[address] Rios Downey Work Phone: [facility] 07-11-2023 11:29-0400 Inhaled oxygen flow rate 4 L/min Dr. Rios Downey Work Phone: [facility] 07-11-2023 10:49-0400 SaO2% (BldA) [Mass fraction] 98 % Dr. Rios Downey Work Phone: [facility] 07-10-2023 16:00-0400 Body temperature 96.9 [degF] Dr. Rios Downey Work Phone: [facility] 07-10-2023 16:00-0400 Diastolic blood pressure 66 mm[Hg] Dr. Rois Downey Work Phone: [facility] 07-10-2023 16:00-0400 Heart rate 68 /min Dr. Rios Downey Work Phone: [facility] 07-10-2023 16:00-0400 Respiratory rate 18 /min Dr. Rios Downey Work Phone: [facility] 07-10-2023 16:00-0400 Systolic blood pressure 159 mm[Hg] Dr. Rios Downey Work Phone: [facility] 07-09-2023 13:20-0400 Body mass index (BMI) [Ratio] 44.1 kg/m2 Dr. Rios Downey Work Phone: [facility] 07-09-2023 13:20-0400 Body weight 120.[address] Rios Downey Work Phone: [facility] 07-06-2023 15:30-0400 Body height 165.[address] Rios Downey Work Phone: [facility] 07-04-2023 19:55-0400 Inhaled oxygen concentration 92 % Dr. Rios Downey Work Phone: [facility] 07-03-2023 09:00-0400 Inhaled oxygen flow rate 4 L/min Dr. Rios Downey Work Phone: [facility] 07-03-2023 08:37-0400 Body temperature 97.8 [degF] Dr. Rios Downey Work Phone: [facility] 07-03-2023 08:37-0400 Diastolic blood pressure 75 mm[Hg] Dr. Rios Downey Work Phone: [facility] 07-03-2023 08:37-0400 Heart rate 60 /min Dr. Rios Downey Work Phone: [facility] 07-03-2023 08:37-0400 Respiratory rate 17 /min Dr. Rios Downey Work Phone: [facility] 07-03-2023 08:37-0400 SaO2% (BldA) [Mass fraction] 98 % Dr. Rios Downey Work Phone: [facility] 07-03-2023 08:37-0400 Systolic blood pressure 157 mm[Hg] Dr. Rios Downey Work Phone: [facility] 07-03-2023 04:47-0400 Body mass index (BMI) [Ratio] 44.1 kg/m2 Dr. Rios Downey Work Phone: [facility] 07-03-2023 04:47-0400 Body weight 120.[address] Rios Downey Work Phone: [facility] 07-01-2023 14:18-0400 Body height 165.[address] Rios Downey Work Phone: [facility] 06-29-2023 14:24-0400 Body temperature 97 [degF] [facility] 06-29-2023 14:24-0400 Diastolic blood pressure 63 mm[Hg] [facility] 06-29-2023 14:24-0400 Heart rate 66 /min [place] 06-29-2023 14:24-0400 Inhaled oxygen flow rate 4 L/min [facility] 06-29-2023 14:24-0400 Respiratory rate 22 /min [facility] 06-29-2023 14:24-0400 SaO2% (BldA) [Mass fraction] 96 % [facility] 06-29-2023 14:24-0400 Systolic blood pressure 156 mm[Hg] [facility] 06-29-2023 12:55-0400 Body height 165.1 cm [place] 06-29-2023 12:55-0400 Body mass index (BMI) [Ratio] 44.1 kg/m2 [facility] 06-29-2023 12:55-0400 Body weight 120.3 kg [place] 01-31-2023 15:27-0500 Body height 165.[address] Jennifer Lu Work Phone: [facility] 01-31-2023 15:27-0500 Body mass index (BMI) [Ratio] 42.5 kg/m2 Dr. Jennifer Lu Work Phone: [facility] 01-31-2023 15:27-0500 Body weight 116.[address] Jennifer Lu Work Phone: [facility] 01-31-2023 15:27-0500 Diastolic blood pressure 78 mm[Hg] Dr. Jennifer Lu Work Phone: [facility] 01-31-2023 15:27-0500 Heart rate 74 /min Dr. Jennifer Lu Work Phone: [facility] 01-31-2023 15:27-0500 Inhaled oxygen flow rate 2 L/min Dr. Jennifer Lu Work Phone: [facility] 01-31-2023 15:27-0500 Respiratory rate 20 /min Dr. Jennifer Lu Work Phone: [facility] 01-31-2023 15:27-0500 Systolic blood pressure 129 mm[Hg] Dr. Jennifer Lu Work Phone: [facility] 10-07-2022 13:47-0500 Body height 165.[address] Jennifer Lu Work Phone: [facility] 10-07-2022 13:47-0500 Body mass index (BMI) [Ratio] 44.1 kg/m2 Dr. Jennifer Lu Work Phone: [facility] 10-07-2022 13:47-0500 Body temperature 98.4 [degF] Dr. Jennifer Lu Work Phone: [facility] 10-07-2022 13:47-0500 Body weight 120.[address] Jennifer Lu Work Phone: [facility] 10-07-2022 13:47-0500 Diastolic blood pressure 55 mm[Hg] Dr. Jennifer Lu Work Phone: [facility] 10-07-2022 13:47-0500 Heart rate 62 /min Dr. Jennifer Lu Work Phone: [facility] 10-07-2022 13:47-0500 Inhaled oxygen flow rate 2 L/min Dr. Jennifer Lu Work Phone: [facility] 10-07-2022 13:47-0500 Respiratory rate 16 /min Dr. Jennifer Lu Work Phone: [facility] 10-07-2022 13:47-0500 SaO2% (BldA) [Mass fraction] 99 % Dr. Jennifer Lu Work Phone: [facility] 10-07-2022 13:47-0500 Systolic blood pressure 112 mm[Hg] Dr. Jennifer Lu Work Phone: [facility] 07-12-2022 16:10-0400 Body height 165.[address] Jennifer Lu Work Phone: [facility] Work Phone: 07-12-2022 16:10-0400 Body temperature 97 [degF] Dr. Jennifer Lu Work Phone: [facility] Work Phone: 07-12-2022 16:10-0400 Diastolic blood pressure 58 mm[Hg] Dr. Jennifer Lu Work Phone: [facility] Work Phone: 07-12-2022 16:10-0400 Heart rate 61 /min Dr. Jennifer Lu Work Phone: [facility] Work Phone: 07-12-2022 16:10-0400 Inhaled oxygen flow rate 4 L/min Dr. Jennifer Lu Work Phone: [facility] Work Phone: 07-12-2022 16:10-0400 Respiratory rate 18 /min Dr. Jennifer Lu Work Phone: [facility] Work Phone: 07-12-2022 16:10-0400 SaO2% (BldA) [Mass fraction] 100 % Dr. Jennifer Lu Work Phone: [facility] Work Phone: 07-12-2022 16:10-0400 Systolic blood pressure 131 mm[Hg] Dr. Jennifer Lu Work Phone: [facility] Work Phone: 06-16-2022 15:14-0400 Heart rate 67 /min Dr. Jennifer Lu Work Phone: [facility] Work Phone: 06-16-2022 15:05-0400 Body mass index (BMI) [Ratio] 43.7 kg/m2 Dr. Jennifer Lu Work Phone: [facility] Work Phone: 06-16-2022 15:05-0400 Body weight 119.[address] Jennifer Lu Work Phone: [facility] Work Phone: 06-16-2022 15:05-0400 Diastolic blood pressure 64 mm[Hg] Dr. Jennifer Lu Work Phone: [facility] Work Phone: 06-16-2022 15:05-0400 Inhaled oxygen flow rate 4 L/min Dr. Jennifer Lu Work Phone: [facility] Work Phone: 06-16-2022 15:05-0400 Respiratory rate 20 /min Dr. Jennifer Lu Work Phone: [facility] Work Phone: 06-16-2022 15:05-0400 Systolic blood pressure 102 mm[Hg] Dr. Jennifer Lu Work Phone: [facility] Work Phone: 06-14-2022 15:09-0400 Body height 165.[address] Jennifer Lu Work Phone: [facility] Work Phone: 06-14-2022 15:09-0400 Body mass index (BMI) [Ratio] 44.7 kg/m2 Dr. Jennifer Lu Work Phone: [facility] Work Phone: 06-14-2022 15:09-0400 Body temperature 97.9 [degF] Dr. Jennifer Lu Work Phone: [facility] Work Phone: 06-14-2022 15:09-0400 Body weight 122.[address] Jennifer Lu Work Phone: [facility] Work Phone: 06-14-2022 15:09-0400 Diastolic blood pressure 39 mm[Hg] Dr. Jennifer Lu Work Phone: [facility] Work Phone: 06-14-2022 15:09-0400 Heart rate 56 /min Dr. Jennifer Lu Work Phone: [facility] Work Phone: 06-14-2022 15:09-0400 Inhaled oxygen flow rate 4 L/min Dr. Jennifer Lu Work Phone: [facility] Work Phone: 06-14-2022 15:09-0400 Respiratory rate 18 /min Dr. Jennifer Lu Work Phone: [facility] Work Phone: 06-14-2022 15:09-0400 SaO2% (BldA) [Mass fraction] 100 % Dr. Jennifer Lu Work Phone: [facility] Work Phone: 06-14-2022 15:09-0400 Systolic blood pressure 99 mm[Hg] Dr. Jennifer Lu Work Phone: [facility] Work Phone: 04-16-2022 13:16-0400 Inhaled oxygen flow rate 4 L/min Dr. Jennifer Lu Work Phone: [facility] Work Phone: 04-16-2022 13:16-0400 SaO2% (BldA) [Mass fraction] 95 % Dr. Jennifer uL Work Phone: [facility] Work Phone: 04-16-2022 12:47-0400 Body height 165.[address] Jennifer Lu Work Phone: [facility] Work Phone: 04-16-2022 12:47-0400 Body mass index (BMI) [Ratio] 43.7 kg/m2 Dr. Jennifer Lu Work Phone: [facility] Work Phone: 04-16-2022 12:47-0400 Body temperature 97.5 [degF] Dr. Jennifer Lu Work Phone: [facility] Work Phone: 04-16-2022 12:47-0400 Body weight 119.[address] Jennifer Lu Work Phone: [facility] Work Phone: 04-16-2022 12:47-0400 Diastolic blood pressure 70 mm[Hg] Dr. Jennifer Lu Work Phone: [facility] Work Phone: 04-16-2022 12:47-0400 Heart rate 58 /min Dr. Jennifer Lu Work Phone: [facility] Work Phone: 04-16-2022 12:47-0400 Systolic blood pressure 110 mm[Hg] Dr. Jennifer Lu Work Phone: [facility] Work Phone: 03-15-2022 14:47-0400 Body height 165.[address] Jennifer Lu Work Phone: [facility] Work Phone: 03-15-2022 14:47-0400 Body mass index (BMI) [Ratio] 41.5 kg/m2 Dr. Jennifer Lu Work Phone: [facility] Work Phone: 03-15-2022 14:47-0400 Body temperature 97.9 [degF] Dr. Jennifer Lu Work Phone: [facility] Work Phone: 03-15-2022 14:47-0400 Body weight 113.[address] Jennifer Lu Work Phone: [facility] Work Phone: 03-15-2022 14:47-0400 Diastolic blood pressure 61 mm[Hg] Dr. Jennifer Lu Work Phone: [facility] Work Phone: 03-15-2022 14:47-0400 Heart rate 74 /min Dr. Jennifer Lu Work Phone: [facility] Work Phone: 03-15-2022 14:47-0400 Inhaled oxygen flow rate 4 L/min Dr. Jennifer Lu Work Phone: [facility] Work Phone: 03-15-2022 14:47-0400 Respiratory rate 20 /min Dr. Jennifer Lu Work Phone: [facility] Work Phone: 03-15-2022 14:47-0400 SaO2% (BldA) [Mass fraction] 100 % Dr. Jennifer Lu Work Phone: [facility] Work Phone: 03-15-2022 14:47-0400 Systolic blood pressure 128 mm[Hg] Dr. Jennifer Lu Work Phone: [facility] Work Phone: 12-07-2021 14:36-0500 Body mass index (BMI) [Ratio] 42.9 kg/m2 Dr. Jennifer Lu Work Phone: [facility] Work Phone: 12-07-2021 14:36-0500 Body weight 117.[address] Jennifer Lu Work Phone: [facility] Work Phone: 12-07-2021 14:36-0500 Diastolic blood pressure 72 mm[Hg] Dr. Jennifer Lu Work Phone: [facility] Work Phone: 12-07-2021 14:36-0500 Heart rate 49 /min Dr. Jennifer Lu Work Phone: [facility] Work Phone: 12-07-2021 14:36-0500 Systolic blood pressure 134 mm[Hg] Dr. Jennifer Lu Work Phone: [facility] Work Phone: Encounters Encounter Date Encounter Type Care Provider Facility Start: 06-20-2025 End: 06-20-2025 Dr. Christian Shook MD -[facility] Work Phone: Start: 06-20-2025 End: 06-20-[address] Rios Downey DO Work Phone: [facility] Start: 06-19-2025 End: 06-19-[address] Pepe Au MD -[facility] Work Phone: Start: 06-19-2025 End: 06-19-2025 Dr. Pepe Au MD -[facility] Work Phone: Start: 06-19-2025 End: 06-19-[address] Rios Downey DO Work Phone: -[facility] Start: 06-13-2025 End: 06-13-2025 Patient encounter procedure Gosia aSenz DIRECTOR CARDIOLOGY-C -[facility] Work Phone: Start: 06-13-2025 End: 06-13-2025 Gosia Saenz DIRECTOR CARDIOLOGY-C [facility] Work Phone: Start: 06-13-2025 End: 06-13-[address] Riso Downey DO Work Phone: -[facility] Start: 05-31-2025 End: 06-01-2025 [facility] Work [facility]: Start: 05-31-2025 End: 06-01-2025 Emergency department patient visit Dr. Rios Downey DO Work Phone: -Emer[facility] Department Work Phone: Start: 05-22-2025 End: 05-22-[address] Pepe Au MD -[facility] Work Phone: Start: 05-22-2025 End: 05-22-2025 Dr. Pepe Au MD -[facility] Work Phone: Start: 05-22-2025 End: 05-22-[address] Rios Downey DO Work Phone: [facility] Work Phone: Start: 04-25-2025 End: 04-25-[address] Pepe Au MD -[facility] Work Phone: Start: 04-25-2025 End: 04-25-2025 Dr. Pepe Au MD -[facility] Work Phone: Start: 04-25-2025 End: 04-25-[address] Rios Downey DO Work Phone: [facility] Work Phone: Start: 04-15-2025 End: 04-15-[address] Pepe Au MD -[facility] Work Phone: Start: 04-15-2025 End: 04-15-2025 Dr. Pepe Au MD -Laboratory [facility] Work Phone: Start: 04-15-2025 End: 04-15-2025 ambulatory Pepe Au Facility:[facility] Start: 03-28-2025 End: 03-28-[address] Pepe Au MD -[facility] Work Phone: Start: 03-28-2025 End: 03-28-2025 Dr. Pepe Au MD -[facility] Work Phone: Start: 03-28-2025 End: 03-28-2025 [facility] Start: 03-14-2025 End: 03-14-2025 Patient encounter procedure Gosia Saenz DIRECTOR CARDIOLOGY-C -[facility] Work Phone: Start: 03-14-2025 End: 03-14-2025 Gosia Saenz DIRECTOR CARDIOLOGY-C [facility] Work Phone: Start: 03-14-2025 End: 03-14-2025 ambulatory Rios Downey Facility[facility] Start: 02-26-2025 End: 02-26-[address] Pepe Au MD -[facility] Work Phone: Start: 02-26-2025 End: 02-26-2025 Dr. Pepe Au MD -[facility] Work Phone: Start: 02-26-2025 End: 02-26-[address] Rios Downey DO Work Phone: [facility] Work Phone: Start: 01-29-2025 End: 01-29-[address] Pepe Au MD -[facility] Work Phone: Start: 01-29-2025 End: 01-29-2025 ambulatory [facility] Facility:[facility] Start: 01-01-2025 End: 01-01-[address] Pepe Au MD -[facility] Work Phone: Start: 01-01-2025 End: 01-01-2025 ambulatory [facility] Facility:[facility] Start: 12-04-2024 End: 12-04-[address] Pepe Au MD -[facility] Work Phone: Start: 12-04-2024 End: 12-04-2024 [facility] Start: 11-07-2024 Encounter for genera l adult medical examination without abnormal findings [facility] Start: 10-31-2024 End: 10-31-[address] Pepe Au MD -[facility] Work Phone: Start: 10-31-2024 End: 10-31-2024 [facility] Start: 10-22-2024 End: 10-22-2024 ambulatory Toñito Espino Facility:[facility] Start: 10-15-2024 End: 10-15-2024 ambulatory [facility] Facility:[facility] Start: 10-10-2024 ambulatory [facility]: [facility] Start: 10-10-2024 End: 10-10-2024 ambulatory [facility] Facility:[facility] Start: 10-02-2024 End: 10-02-2024 ambulatory Rios Downey Facility:[facility] Start: 09-24-2024 End: 09-24-2024 ambulatory Rios Downey Facility:[facility] Start: 08-30-2024 End: 08-30-2024 ambulatory Rios Maloneins Facility:[facility] Start: 08-02-2024 End: 08-02-2024 ambulatory Rios Downey Facility:[facility] Start: 07-04-2024 End: 07-04-2024 ambulatory Rios Downey Facility:[facility] Start: 03-23-2024 End: 03-23-[address] Rios Downey Work Phone: [facility] Work Phone: Start: 03-22-2024 End: 03-22-[address] Rios Downey Work Phone: [facility] Work Phone: Start: 03-22-2024 End: 03-22-[address] Rios Downey Work Phone: [facility] Work Phone: Start: 03-14-2024 End: 03-14-2024 ambulatory [facility] Work Phone: Start: 03-14-2024 End: 03-14-2024 Patient encounter procedure [facility] Work Phone: Start: 02-19-2024 End: 02-19-2024 Emergency department patient visit [facility] Work Phone: Start: 02-15-2024 End: 02-16-2024 Emergency department patient visit [facility] Work Phone: Start: 02-15-2024 End: 02-15-2024 ambulatory [facility] Work Phone: Start: 02-15-2024 End: 02-15-2024 Patient encounter procedure [facility] Work Phone: Start: 01-18-2024 End: 01-18-[address] Rios Downey Work Phone: [facility] Work Phone: Start: 01-18-2024 End: 01-18-[address] Rios Downey Work Phone: [facility] Work Phone: Start: 12-21-2023 End: 12-21-[address] Rios Downey Work Phone: [facility] Work Phone: Start: 12-02-2023 End: 12-02-[address] Rios Downey Work Phone: [facility] Work Phone: Start: 11-23-2023 End: 11-23-[address] Rios Downey Work Phone: [facility] Work Phone: Start: 11-23-2023 End: 11-23-[address] [facility] Start: 11-23-2023 End: 11-23-2023 Dr. Rios Downey Work Phone: [facility] Work Phone: Start: 10-26-2023 End: 10-26-[address] Rios Downey Work Phone: [facility] Work Phone: Start: 10-26-2023 End: 10-26-[address] [facility]: Start: 10-26-2023 End: 10-26-2023 Dr. Rios Downey Work Phone: [facility] Work Phone: Start: 10-05-2023 End: 10-05-[address] Rios Downey Work Phone: [facility] Work Phone: Start: 10-05-2023 End: 10-05-2023 Dr. Rios Downey Work Phone: [facility] Work Phone: Start: 09-28-2023 End: 09-28-[address] Rios Downey Work Phone: [facility] Work Phone: Start: 09-28-2023 End: 09-28-[address] Rios Downey Work Phone: [facility] Work Phone: Start: 09-28-2023 End: 09-28-2023 Dr. Rios Downey Work Phone: [facility] Work Phone: Start: 09-22-2023 Non-patient / Non-visit Dr. Carlos Downey Work Phone: [facility] Work Phone: Start: 09-22-2023 Dr. Rios winters Work Phone: [facility] Work Phone: Start: 09-22-2023 Non-patient / Non-visit Dr. Carlos Downey Work Phone: [facility] Start: 09-22-2023 Dr. Rios winters Work Phone: [facility] Start: 09-21-2023 Non-patient / Non-visit Dr. Carlos Downey Work Phone: [facility] Work Phone: Start: 09-21-2023 Dr. Rios winters Work Phone: [facility] Work Phone: Start: 09-21-2023 Non-patient / Non-visit Dr. Carlos Downey Work Phone: [facility] Start: 09-21-2023 Dr. Rios Malone ins Work Phone: [facility] Start: 09-20-2023 Dr. Rios Malone ins Work Phone: [facility] Start: 09-20-2023 Dr. Rios Malone ins Work Phone: [facility] Work Phone: Start: 09-19-2023 Dr. Rios Malone ins Work Phone: [facility] Work Phone: Start: 09-18-2023 Dr. Rios Malone ins Work Phone: [facility] Work Phone: Start: 09-17-2023 Dr. iRos Malone ins Work Phone: [facility] Work Phone: Start: 09-16-2023 End: 09-22-2023 Evaluation and management of inpatient Dr. Rios Downey Work Phone: [facility] Work Phone: Start: 09-16-2023 End: 09-22-2023 Dr. Rios Downey Work Phone: [facility] Work Phone: Start: 08-31-2023 End: 08-31-2023 Dr. Rios Downey Work Phone: [facility] Work Phone: Start: 08-22-2023 Dr. Rios Malone ins Work Phone: [facility] Work Phone: Start: 08-21-2023 Dr. Rios winters Work Phone: [facility] Work Phone: Start: 08-20-2023 Dr. Rios winters Work Phone: [facility] Work Phone: Start: 08-19-2023 Dr. Rios Malone ins Work Phone: [facility] Work Phone: Start: 08-18-2023 Evaluation and management of inpatient Dr. Rios Downey Work Phone: [facility] Work Phone: Start: 08-18-2023 End: 08-22-2023 Evaluation and management of inpatient Dr. Rios Downey Work Phone: [facility] Work Phone: Start: 08-18-2023 End: 08-22-2023 Dr. [facility] Dow[facility] Work [facility]: Start: 08-18-2023 Dr. Rios winters Work Phone: [facility] Work Phone: Start: 08-06-2023 End: 08-06-[address] Rios Downey Work Phone: [facility] Work Phone: Start: 08-06-2023 End: 08-06-[address] Rios Downey Work Phone: [facility], [facility] Work Phone: Start: 08-06-2023 End: 08-06-2023 Dr. Rios Downey Work Phone: [facility], [facility] Work Phone: Start: 07-23-2023 End: 07-23-[address] [facility] Dow[facility] Work Phone: Start: 07-23-2023 End: 07-23-2023 Dr. Rios Downey [facility] Work Phone: Start: 07-22-2023 End: 07-22-[address] Rios Downey Work Phone: [facility] Work Phone: Start: 07-22-2023 End: 07-22-[address] Rios Downey Work Phone: [facility] - [facility] Work Phone: Start: 07-22-2023 End: 07-22-2023 Dr. Rios Downey Work Phone: [facility] Work Phone: Start: 07-06-2023 End: 07-06-[address] Rios Downey Work Phone: [facility] Work Phone: Start: 07-06-2023 End: 07-06-[address] R[facility] Downey [facility] Work Phone: Start: 07-06-2023 End: 07-06-2023 Dr. Rios Downey [facility] Work Phone: Start: 07-03-2023 End: 08-18-2023 Evaluation and management of inpatient Dr. Rios Downey Work Phone: [facility] Start: 07-03-2023 End: 08-18-2023 Dr. Rios Dow[facility] Start: 07-03-2023 Non-patient / Non-visit Dr. Carlos Downey Work Phone: [facility] Work Phone: Start: 07-03-2023 Dr. Rios winters Work Phone: [facility] Work Phone: Start: 07-02-2023 Non-patient / Non-visit Dr. Carlos Downey Work Phone: [facility] Work Phone: Start: 07-02-2023 Dr. Rios winters Work Phone: [facility] Work Phone: Start: 07-01-2023 Non-patient / Non-visit Dr. Carlos Downey Work Phone: [facility] Work Phone: Start: 07-01-2023 Dr. Rios winters Work Phone: [facility] Work Phone: Start: 06-30-2023 Non-patient / Non-visit Dr. Carlos Downey Work Phone: [facility] Work Phone: Start: 06-30-2023 Dr. Rios winters Work Phone: [facility] Work Phone: Start: 06-30-2023 End: 07-03-2023 Evaluation and management of inpatient Dr. Rios Downey [facility] Work [facility]: Start: 06-30-2023 End: 07-03-2023 Dr. Rios Dow[facility] Work [facility]: Start: 06-30-2023 Non-patient / Non-visit Dr. Carlos Downey Work Phone: [facility] Start: 06-30-2023 Dr. Rios winters Work Phone: [facility] Start: 06-29-2023 Non-patient / Non-visit Dr. Carlos Downey Work Phone: [facility] Start: 06-29-2023 Dr. Rios winters Work Phone: [facility] Start: 06-29-2023 Non-patient / Non-visit Dr. Carlos Downey Work Phone: [facility] Work Phone: Start: 06-29-2023 Dr. Rios winters Work Phone: [facility] Work Phone: Start: 06-29-2023 Evaluation and management of inpatient [facility] Work Phone: Start: 06-29-2023 observation encounter [facility] Work Phone: Start: 06-13-2023 End: 06-13-2023 ambulatory [facility] Work Phone: Start: 06-13-2023 End: 06-13-2023 Patient encounter procedure [facility] Work Phone: Start: 06-13-2023 End: 06-13-2023 Dr. Rios Downey Work Phone: [facility] Work Phone: Start: 05-26-2023 End: 05-26-2023 ambulatory [facility] Work Phone: Start: 05-26-2023 End: 05-26-2023 Patient encounter procedure [facility] Work Phone: Start: 05-26-2023 End: 05-26-2023 Dr. Rios Downey Work Phone: [facility] Work Phone: Start: 05-16-2023 End: 05-16-[address] Rios Downey Work Phone: [facility] Work Phone: Start: 05-16-2023 End: 05-16-[address] Rios Downey Work Phone: [facility] Start: 05-16-2023 End: 05-16-2023 Dr. Rios Downey Work Phone: [facility] Work Phone: Start: 05-12-2023 End: 05-17-2023 ambulatory RIOS DOWNEY DO Facility:[facility] Start: 05-12-2023 End: 05-16-2023 Outreach Lab JENNIFER LU MD [facility] Start: 04-18-2023 End: 04-18-[address] Rios Downey Work Phone: [facility] Start: 04-18-2023 End: 04-18-2023 Dr. Rios Downey Work Phone: [facility] Work Phone: Start: 03-21-2023 End: 03-21-[address] Rios Downey Work Phone: [facility] Work Phone: Start: 03-21-2023 End: 03-21-[address] Rios Downey Work Phone: [facility] Start: 03-21-2023 End: 03-21-2023 Dr. Rios Downey Work Phone: [facility] Work Phone: Start: 02-21-2023 End: 02-21-[address] Rios Downey Work Phone: [facility] Work Phone: Start: 02-21-2023 End: 02-21-[address] Rios Downey Work Phone: [facility] Start: 01-31-2023 End: 01-31-[address] Jennifer Lu Work Phone: [facility] Work Phone: Start: 01-31-2023 End: 01-31-[address] Jennifer Lu Work Phone: [facility] Start: 01-31-2023 End: 01-31-[address] Jennifer Lu Work Phone: [facility] Start: 01-24-2023 End: 01-24-[address] Jennifer Lu Work Phone: [facility] Work Phone: Start: 01-24-2023 End: 01-24-[address] [facility] Start: 12-28-2022 End: 12-28-[address] Jennifer Lu Work Phone: [facility] Work Phone: Start: 12-28-2022 End: 12-28-[address] [facility] Start: 12-02-2022 End: 12-02-[address] Jennifer Lu Work Phone: [facility] Work Phone: Start: 12-02-2022 End: 12-02-[address] [facility] Start: 11-24-2022 End: 11-24-[address] Jennifer Lu Work Phone: [facility] Start: 11-01-2022 End: 11-01-[address] Jennifer Lu Work Phone: [facility] Work Phone: Start: 11-01-2022 End: 11-01-[address] [facility] Start: 10-07-2022 End: 10-07-[address] Jennifer Lu [facility] Start: 10-04-2022 End: 10-04-[address] [facility] Start: 09-29-2022 End: 09-29-[address] Jennifer Lu Work Phone: [facility] Work Phone: Start: 09-29-2022 End: 09-29-[address] Jennifer Lu Work Phone: [facility] Start: 09-06-2022 End: 09-06-[address] Jennifer Lu Work Phone: [facility] Work Phone: Start: 09-06-2022 End: 09-06-[address] [facility] Start: 08-27-2022 End: 08-27-[address] Jennifer Lu Work Phone: [facility] Work Phone: Start: 08-27-2022 End: 08-27-[address] Jennifer Lu Work Phone: [facility] Start: 08-09-2022 End: 08-09-[address] Jennifer Lu Work Phone: [facility] Work Phone: Start: 08-09-2022 End: 08-09-[address] [facility] Start: 07-16-2022 End: 07-16-[address] Jennifer Lu Work Phone: [facility] Work Phone: Start: 07-16-2022 End: 07-16-[address] Jennifer Lu Work Phone: [facility] Start: 07-12-2022 End: 07-12-[address] [facility] Start: 07-09-2022 End: 07-09-[address] Jennifer Lu Work Phone: [facility] Start: 06-18-2022 End: 06-18-[address] Jennifer Lu Work Phone: [facility] Start: 06-16-2022 End: 06-16-[address] Jennifer Lu Work Phone: [facility] Start: 06-14-2022 End: 06-14-[address] [facility] Start: 05-18-2022 End: 05-18-[address] Jennfier Lu Work Phone: [facility] Start: 05-17-2022 End: 05-17-[address] [facility] Start: 04-16-2022 End: 04-16-[address] Jennifer Lu [facility] Start: 04-12-2022 End: 04-12-2022 [facility] Start: 03-29-2022 End: 03-29-[address] Jennifer Lu Work Phone: [facility] Start: 03-15-2022 End: 03-15-[address] Jennifer Lu Work Phone: [facility] Start: 02-15-2022 End: 02-15-[address] Jennifer Lu Work Phone: [facility] Start: 01-25-2022 End: 01-25-[address] Jennifer Lu Work Phone: [facility] Start: 01-18-2022 End: 01-18-[address] Jennifer Lu Work Phone: [facility] Start: 12-21-2021 End: 12-21-[address] Jennifer Lu Work Phone: [facility] Start: 12-07-2021 End: 12-07-[address] Jennifer Lu Work Phone: [facility] Procedures Date Procedure Procedure Detail Performing Clinician Start: 06-19-2025 Blood count smear mc rscp w/mnl difrntl wbc count Dr. Rios Downey DO Work Phone: Start: 06-19-2025 Mean corpuscular hemoglobin concentration determination Dr. Rios Downey DO Work Phone: Start: 06-19-2025 Nucleated red blood cell count procedure Dr. Rios Downey DO Work Phone: Start: 06-19-2025 Platelet mean volume determination Dr. Rios Downey DO Work Phone: Start: 06-19-2025 Serum inorganic phos phate measurement Dr. Rios Downey DO Work Phone: Start: 06-19-2025 Total iron binding capacity measurement Dr. Rios Downey DO Work Phone: Start: 05-31-2025 Carbon dioxide measurement, partial pressure Dr. Rios Downey DO Work Phone: Start: 05-31-2025 Gases blood o2 satur ation only direct aubree Dr. Rios Downey DO Work Phone: Start: 05-31-2025 Measurement of parti al pressure of oxygen in blood Dr. Rios Downey DO Work Phone: Start: 05-31-[address] Rios Downey DO Work Phone: Start: 05-31-2025 X-ray of chest, PA a nd lateral views Dr. Rios Downey DO Work Phone: Start: 05-31-2025 Blood count smear mc rscp w/mnl difrntl wbc count Dr. Rios Downey DO Work Phone: Start: 05-31-[address] Rios Downey DO Work Phone: Start: 05-31-2025 Mean corpuscular hemoglobin concentration determination Dr. Rios Downey DO Work Phone: Start: 05-31-2025 Nucleated red blood cell count procedure Dr. Rios Downey DO Work Phone: Start: 05-31-2025 Platelet mean volume determination Dr. Rios Downey DO Work Phone: Start: 05-31-2025 Urine microscopy: re d cells Dr. Rios Downey DO Work Phone: Start: 05-31-2025 Urnls dip stick/tabl et reagent auto microscopy Dr. Rios Downey DO Work Phone: Start: 05-22-2025 Blood count smear mc rscp w/mnl difrntl wbc count Dr. Rios Downey DO Work Phone: Start: 05-22-2025 Mean corpuscular hemoglobin concentration determination Dr. Rios Downey DO Work Phone: Start: 05-22-2025 Nucleated red blood cell count procedure Dr. Rios Downey DO Work Phone: Start: 05-22-2025 Platelet mean volume determination Dr. Rios Downey DO Work Phone: Start: 05-22-2025 Serum inorganic phos phate measurement Dr. Rios Downey DO Work Phone: Start: 05-22-2025 Total cholesterol:HD L ratio measurement Dr. Rios Downey DO Work Phone: Start: 05-22-2025 Total iron binding capacity measurement Dr. Rios Downey DO Work Phone: Start: 04-25-2025 Blood count smear mc rscp w/mnl difrntl wbc count Dr. Rios Downey DO Work Phone: Start: 04-25-2025 Mean corpuscular hemoglobin concentration determination Dr. Rios Downey DO Work Phone: Start: 04-25-2025 Nucleated red blood cell count procedure Dr. Rios Downey DO Work Phone: Start: 04-25-2025 Platelet mean volume determination Dr. Rios Downey DO Work Phone: Start: 04-25-2025 Serum inorganic phos phate measurement Dr. Rios Downey DO Work Phone: Start: 04-25-2025 Total iron binding capacity measurement Dr. Rios Downey DO Work Phone: Start: 04-15-2025 Blood count smear mc rscp w/mnl difrntl wbc count Dr. Rios Downey DO Work Phone: Start: 04-15-2025 Mean corpuscular hemoglobin concentration determination Dr. Rios Downey DO Work Phone: Start: 04-15-2025 Nucleated red blood cell count procedure Dr. Rios Downey DO Work Phone: Start: 04-15-[address] Rios Downey DO Work Phone: Start: 04-15-2025 Platelet mean volume determination Dr. Rios Downey DO Work Phone: Start: 04-15-2025 Serum inorganic phos phate measurement Dr. Rios Downey DO Work Phone: Start: 04-15-2025 Total iron binding capacity measurement Dr. Rios Downey DO Work Phone: Start: 03-28-2025 Blood count smear mc rscp w/mnl difrntl wbc count Dr. Rios Downey DO Work Phone: Start: 03-28-2025 Mean corpuscular hemoglobin concentration determination Dr. Rios Downey DO Work Phone: Start: 03-28-2025 Nucleated red blood cell count procedure Dr. Rios Downey DO Work Phone: Start: 03-28-2025 Platelet mean volume determination Dr. Rios Downey DO Work Phone: Start: 03-28-2025 Serum inorganic phos phate measurement Dr. Rios Downey DO Work Phone: Start: 03-28-2025 Total iron binding capacity measurement Dr. Rios Downey DO Work Phone: Start: 02-26-2025 Blood count smear mc rscp w/mnl difrntl wbc count Dr. Rios Downey DO Work Phone: Start: 02-26-2025 Mean corpuscular hemoglobin concentration determination Dr. Rios Downey DO Work Phone: Start: 02-26-2025 Nucleated red blood cell count procedure Dr. Rios Downey DO Work Phone: Start: 02-26-[address] Rios Downey DO Work Phone: Start: 02-26-2025 Platelet mean volume determination Dr. Rios Downey DO Work Phone: Start: [...] Treatment Date Care Activity Detail Author Start: 06-01-2025 [facility] Start: 05-31-2025 End: 05-31-2025 [facility] Start: 02-19-2024 [facility] Start: 02-16-2024 [facility] Start: 09-28-2023 [facility] Start: 09-28-2023 Ther proph/dx njx iv push single/1st sbst/drug [facility] Start: 09-22-2023 Patient discharge [facility] Start: 09-20-2023 Dual pressure sponta neous ventilation support [facility] Start: 09-20-2023 Consultation [facility] Start: 09-20-2023 Referral to service [facility] Start: 09-18-2023 End: 09-19-2023 [facility] Start: 09-18-2023 [facility] Start: 09-16-2023 Dual pressure sponta neous ventilation support [facility] Start: 09-16-2023 Following clinical p athway protocol [facility] Start: 09-16-2023 Application of elastic bandage [facility] Start: 09-16-2023 Assessment of risk o f venous thromboembolism [facility] Start: 09-16-2023 Care regimes management [facility] Start: 09-16-2023 Continuous pulse oximetry [facility] Start: 09-16-2023 Elevation of affected extremity [facility] Start: 09-16-2023 Fall prevention [facility] Start: 09-16-2023 Inhalation therapy procedure [facility] Start: 09-16-2023 Insertion of cathete r into peripheral vein [facility] Start: 09-16-2023 Introduction of urinary catheter [facility] Start: 09-16-2023 Measuring intake and output [facility] Start: 09-16-2023 Notification of physician [facility] Start: 09-16-2023 Oxygen therapy [facility] Start: 09-16-2023 Patient education [facility] Start: 09-16-2023 Providing care accor ding to standard [facility] Start: 09-16-2023 Provision of activity privileges [facility] Start: 09-16-2023 Referral to occupati onal therapist [facility] Start: 09-16-2023 Referral to service [facility] Start: 09-16-2023 SARS-CoV-2 [facility] Start: 09-16-2023 End: 09-16-2023 [facility] Start: 09-16-2023 Verification routine [facility] Start: 09-16-2023 Admission procedure [facility] Start: 09-16-2023 Hospital admission, emergency, from emergency room, medical nature [facility] Start: 08-22-2023 Patient discharge [facility] Start: 08-21-2023 [facility] Start: 08-19-2023 Development of care plan [facility] Start: 08-19-2023 [facility] Start: 08-18-2023 Aspiration precautions [facility] Start: 08-18-2023 Assessment of risk o f venous thromboembolism [facility] Start: 08-18-2023 Cardiac monitoring [facility] Start: 08-18-2023 Care regimes management [facility] Start: 08-18-2023 Catheterization of vein [facility] Start: 08-18-2023 Continuous pulse oximetry [facility] Start: 08-18-2023 Elevation of head of bed [facility] Start: 08-18-2023 Exercises [facility] Start: 08-18-2023 Fall prevention [facility] Start: 08-18-[address] anned interventions [facility] Start: 08-18-2023 Inhalation therapy procedure [facility] Start: 08-18-2023 Insertion of cathete r into peripheral vein [facility] Start: 08-18-2023 Introduction of urinary catheter [facility] Start: 08-18-2023 Measuring intake and output [facility] Start: 08-18-2023 Notification of physician [facility] Start: 08-18-2023 Oxygen therapy [facility] Start: 08-18-2023 Patient referral to dietitian [facility] Start: 08-18-2023 Providing care accor ding to standard [facility] Start: 08-18-2023 Provision of activity privileges [facility] Start: 08-18-2023 Referral to occupati onal therapist [facility] Start: 08-18-2023 Referral to service [facility] Start: 08-18-2023 Speech therapy assessment [facility] Start: 08-18-2023 Tobacco use cessation education [facility] Start: 08-18-2023 [facility] Start: 08-18-2023 Vital signs measurements [facility] Start: 08-18-2023 Dual pressure sponta neous ventilation support [facility] Start: 08-18-2023 Verification routine [facility] Start: 08-18-2023 Gas panel - Arterial blood [facility] Start: 08-18-2023 Admission procedure [facility] Start: 08-18-2023 Oxygen therapy [facility] Start: 08-18-2023 [facility] Start: 08-18-2023 Wound care [facility] Start: 08-18-2023 Patient discharge [facility] Start: 08-18-2023 [facility] Start: 08-14-2023 SARS-CoV-2 (COVID-19 ) Ag [Presence] in Respiratory specimen by Rapid immunoassay [facility] Start: 08-13-2023 [facility] Start: 08-12-2023 SARS-CoV-2 (COVID-19 ) Ag [Presence] in Respiratory specimen by Rapid immunoassay [facility] Start: 08-02-2023 Speech therapy management [facility] Start: 08-01-2023 Wound care [facility] Start: 08-01-2023 Blood chemistry [facility] Start: 08-01-2023 Continuous positive airway pressure ventilation treatment [facility] Start: 07-31-2023 [facility] Start: 07-29-2023 Developing a treatment plan [facility] Start: 07-29-2023 Development of care plan [facility] Start: 07-27-2023 [facility] Start: 07-25-2023 Blood chemistry [facility] Start: 07-18-2023 Blood chemistry [facility] Start: 07-12-2023 Verification routine [facility] Start: 07-08-2023 Referral to development consultant [facility] Start: 07-07-2023 Wound care [facility] Start: 07-06-2023 Wound care [facility] Start: 07-04-2023 Development of care plan [facility] Start: 07-04-2023 Speech therapy management [facility] Start: 07-04-2023 Verification routine [facility] Start: 07-04-2023 Developing a treatment plan [facility] Start: 07-03-2023 End: 07-04-2023 [facility] Start: 07-03-2023 Consultation for treatment [facility] Start: 07-03-2023 Speech therapy assessment [facility] Start: 07-03-2023 Wound care [facility] Start: 07-03-2023 Seizure precautions [facility] Start: 07-03-2023 Following clinical p athway protocol [facility] Start: 07-03-2023 Oxygen therapy [facility] Start: 07-03-2023 Admission procedure [facility] Start: 07-03-2023 Measuring intake and output [facility] Start: 07-03-2023 Patient referral to dietitian [facility] Start: 07-03-2023 Referral to occupati onal therapist [facility] Start: 07-03-2023 Referral to service [facility] Start: 07-03-2023 Vital signs measurements [facility] Start: 07-03-2023 Patient discharge [facility] Start: 07-03-2023 Patient referral to dietitian [facility] Start: 07-03-2023 Speech therapy assessment [facility] Start: 07-03-2023 [facility] Start: 07-01-2023 [facility] Start: 06-30-2023 Admission procedure [facility] Start: 06-30-2023 Thyroid stimulating hormone measurement [facility] Start: 06-29-2023 Ambulation without limitation [facility] Start: 06-29-2023 Assessment of risk o f venous thromboembolism [facility] Start: 06-29-2023 Cardiac monitoring [facility] Start: 06-29-2023 Catheterization of vein [facility] Start: 06-29-2023 Continuous pulse oximetry [facility] Start: 06-29-2023 Elevation of head of bed [facility] Start: 06-29-2023 Exercises [facility] Start: 06-29-[address] anned interventions [facility] Start: 06-29-2023 Insertion of cathete r into peripheral vein [facility] Start: 06-29-2023 Measuring intake and output [facility] Start: 06-29-2023 Notification of physician [facility] Start: 06-29-2023 Oxygen therapy [facility] Start: 06-29-2023 Providing care accor ding to standard [facility] Start: 06-29-2023 Referral to occupati onal therapist [facility] Start: 06-29-2023 Referral to service [facility] Start: 06-29-2023 Speech therapy assessment [facility] Start: 06-29-2023 Tobacco use cessation education [facility] Start: 06-29-2023 Following clinical p athway protocol [facility] Start: 06-29-2023 End: 06-29-2023 [facility] Start: 06-29-2023 Verification routine [facility] Start: 06-29-2023 Admission procedure [facility] Start: 06-29-2023 Gas panel - Venous blood [facility] Start: 06-29-2023 Oxygen therapy [facility] Start: 06-29-2023 [facility] Start: 01-31-2023 [facility] Anion gap measurement [facility] Anion gap measurement [facility] Anion gap measurement [facility] Bilirubin measurement, urine [facility] BUN/Creatinine ratio [facility] BUN/Creatinine ratio [facility] BUN/Creatinine ratio [facility] Calcium [Mass/volume ] in Serum or Plasma [facility] Calcium [Mass/volume ] in Serum or Plasma [facility] Calcium [Mass/volume ] in Serum or Plasma [facility] Carbon dioxide, tota l [Moles/volume] in Serum or Plasma [facility] Carbon dioxide, tota l [Moles/volume] in Serum or Plasma [facility] Carbon dioxide, tota l [Moles/volume] in Serum or Plasma [facility] Chloride [Moles/volu me] in Serum or Plasma [facility] Chloride [Moles/volu me] in Serum or Plasma [facility] Chloride [Moles/volu me] in Serum or Plasma [facility] Creatinine [Moles/vo lume] in Serum or Plasma [facility] Creatinine [Moles/vo lume] in Serum or Plasma [facility] Creatinine [Moles/vo lume] in Serum or Plasma [facility] Glucose [Mass/volume ] in Serum or Plasma [facility] Glucose [Mass/volume ] in Serum or Plasma [facility] Glucose [Mass/volume ] in Serum or Plasma [facility] Hematocrit [Volume F raction] of Blood [facility] Hematocrit [Volume F raction] of Blood [facility] Hematocrit [Volume F raction] of Blood [facility] Hemoglobin [Mass/volume] in Blood [facility] Hemoglobin [Mass/volume] in Blood [facility] Hemoglobin [Mass/volume] in Blood [facility] Hemoglobin [Presence] in Urine [facility] Leukocytes [#/volume] in Blood [facility] Leukocytes [#/volume] in Blood [facility] Leukocytes [#/volume] in Blood [facility] Magnesium [Mass/volu me] in Serum or Plasma [facility] Mean corpuscular hem oglobin concentration determination [facility] Mean corpuscular hem oglobin concentration determination [facility] Mean corpuscular hem oglobin concentration determination [facility] Mean corpuscular hem oglobin determination [facility] Mean corpuscular hem oglobin determination [facility] Mean corpuscular hem oglobin determination [facility] Measurement of keton es in urine using dipstick [facility] Measurement of renal function [facility] Measurement of renal function [facility] Measurement of renal function [facility] Microscopic urinalysis [facility] Neutrophil count [facility] Neutrophil count [facility] Neutrophil count [facility] Neutrophil percent d ifferential count [facility] Neutrophil percent d ifferential count [facility] Neutrophil percent d ifferential count [facility] Patient Education [facility] Work Phone: Patient referral [facility] Work Phone: pH of Urine [facility] Platelets [#/volume] in Blood [facility] Platelets [#/volume] in Blood [facility] Platelets [#/volume] in Blood [facility] Potassium [Moles/vol ume] in Serum or Plasma [facility] Potassium [Moles/vol ume] in Serum or Plasma [facility] Potassium [Moles/vol ume] in Serum or Plasma [facility] Red blood cell count [facility] Red blood cell count [facility] Red blood cell count [facility] Red cell distributio n width determination [facility] Red cell distributio n width determination [facility] Red cell distributio n width determination [facility] Respiratory pathogen s DNA and RNA panel - Respiratory specimen by ELIANE with probe detection [facility] Sodium [Moles/volume ] in Serum or Plasma [facility] Sodium [Moles/volume ] in Serum or Plasma [facility] Sodium [Moles/volume ] in Serum or Plasma [facility] Specific gravity of Urine [facility] Urea nitrogen [Mass/ volume] in Serum or Plasma [facility] Urea nitrogen [Mass/ volume] in Serum or Plasma [facility] Urea nitrogen [Mass/ volume] in Serum or Plasma [facility] Urinalysis, blood, qualitative [facility] Urine dipstick for glucose [facility] Urine dipstick for l eukocyte esterase [facility] Urine dipstick for nitrite [facility] Urine dipstick for protein [facility] Urine examination [facility] Urine microscopy: ep ithelial cells [facility] Urine Microscopy: white cells [facility] Urobilinogen [Presence] in Urine [facility] Immunizations Immunization Date Immunization Notes Care Provider Fa [facility] 08-31-2023 tetanus toxoid, redu steph diphtheria toxoid, and acellular pertussis vaccine, adsorbed Dr. Rios Downey Work Phone: [facility] 07-12-2023 Covid Moderna Bivale nt Booster Dr. Rios Downey Work Phone: [facility] 10-06-2022 influenza, high dose seasonal, preservative-free JENNIFER LU MD [facility] 10-06-2022 Influenza, high dose seasonal Dr. Rios Downey DO Work Phone: [facility] 03-16-2022 COVID-19, mRNA, LNP- S, PF, 100 mcg or 50 mcg dose; Translations: [Moderna COVID-19 Vaccine] JENNIFER LU MD [facility] 12-03-2021 COVID-19, mRNA, LNP- S, PF, 100 mcg or 50 mcg dose; Translations: [Moderna COVID-19 Vaccine] JENNIFER LU MD [facility] 09-17-2021 influenza, high dose seasonal, preservative-free; Translations: [Fluad Quadrivalent PF ] JENNIFER LU MD [facility] 09-17-2021 Influenza, high dose seasonal Dr. Rios Downey DO Work Phone: [facility] 01-20-2021 COVID-19, mRNA, LNP- S, PF, 100 mcg or 50 mcg dose; Translations: [Moderna COVID-19 Vaccine] JENNIFER LU MD [facility] 12-25-2020 SARS-CoV-2 (COVID-19 ) mRNA-1273 vaccine JENNIFER LU MD [facility] 08-15-2020 influenza, injectabl e, quadrivalent, preservative free; Translations: [Fluarix PF Quadrivalent ] JENNIFER LU MD [facility] 08-15-2020 influenza, seasonal, injectable Dr. Rios Downey Work Phone: [facility] 09-13-2019 influenza, injectabl e, quadrivalent, preservative free; Translations: [Fluarix PF Quadrivalent ] JENNIFER LU MD [facility] 09-13-2019 influenza, seasonal, injectable Dr. Rios Downey Work Phone: [facility] 08-28-[address] Jennifer Lu Work Phone: [facility] 09-04-2018 influenza virus vacc ine, unspecified formulation JENNIFER LU MD [facility] 09-04-2018 influenza, injectabl e, quadrivalent, preservative free Dr. Rios Downey Work Phone: [facility] 09-04-2018 influenza, seasonal, injectable Dr. Rios Downey Work Phone: [facility] 09-21-2017 influenza virus vacc ine, unspecified formulation JENNIFER LU MD [facility] 09-21-2017 influenza, injectabl e, quadrivalent, preservative free Dr. Rios Downey Work Phone: [facility] 09-21-2017 influenza, seasonal, injectable Dr. Rios Downey Work Phone: [facility] 08-22-2017 influenza, injectabl e, quadrivalent, preservative free Dr. Rios Downey Work Phone: [facility] 08-22-2017 influenza, seasonal, injectable Dr. Jennifer Lu Work Phone: [facility] 08-24-[address] Jennifer Lu Work Phone: [facility] 08-24-2016 influenza virus vacc ine, unspecified formulation JENNIFER LU MD [facility] 08-24-2016 influenza, injectabl e, quadrivalent, preservative free Dr. Rios Downey Work Phone: [facility] 08-24-2016 influenza, seasonal, injectable Dr. Rios Downey Work Phone: [facility] 07-29-2016 influenza virus vacc ine, unspecified formulation JENNIFER LU MD [facility] 07-29-2016 influenza, injectabl e, quadrivalent, preservative free Dr. Rios Downey Work Phone: [facility] 07-29-2016 influenza, seasonal, injectable Dr. Rios Downey Work Phone: [facility] 10-03-2015 influenza virus vacc ine, unspecified formulation JENNIFER LU MD [facility] 10-03-2015 influenza, injectabl e, quadrivalent, preservative free Dr. Rios Downey Work Phone: [facility] 10-03-2015 influenza, seasonal, injectable Dr. Rios Downey Work Phone: [facility] 09-11-2015 influenza, injectabl e, quadrivalent, preservative free Dr. Rios Downey Work Phone: [facility] 09-11-2015 influenza, seasonal, injectable Dr. Jennifer Lu Work Phone: [facility] 03-03-2015 pneumococcal conjuga te vaccine, 13 valent JENNIFER LU MD [facility] 10-09-2014 influenza virus vacc ine, unspecified formulation JENNIFER LU MD [facility] 10-09-2014 influenza, injectabl e, quadrivalent, preservative free Dr. Rios Downey Work Phone: [facility] 10-09-2014 influenza, seasonal, injectable Dr. Rios Downey Work Phone: [facility] 09-17-2013 influenza virus vacc ine, unspecified formulation JENNIFER LU MD [facility] 09-17-2013 influenza, injectabl e, quadrivalent, preservative free Dr. Rios Downey Work Phone: [facility] 09-17-2013 influenza, seasonal, injectable Dr. Rios Downey Work Phone: [facility] 10-02-2012 pneumococcal polysaccharide vaccine, 23 valent JENNIFER LU MD [facility] 08-04-2011 tetanus toxoid, redu steph diphtheria toxoid, and acellular pertussis vaccine, adsorbed JENNIFER LU MD [facility] 08-28-2006 pneumococcal polysaccharide vaccine, 23 collins LU MD [facility] Payers Date Payer Category Payer Self-pay [id number] 2006 Medicare [id number] [facility] [id number] 2006 Unknown [id number] 1940 Unknown [id number] 2.16.8 [id number] Unknown [id number] Unknown [id number] 2.16.8 [id number] Unknown [id number] 2.16.8 [id number] Unknown [id number] 2.16.8 40.1.137770.3.579.2.462 Unknown [id number] 2.16.8 40.1.335373.3.579.2.462 Unknown [id number] 2.16.8 40.1.255774.3.579.2.462 Unknown [id number] 2.16.8 40.1.538264.3.579.2.462 Unknown [id number] 2.16.8 40.1.952024.3.579.2.462 Unknown [id number] 2.16.8 40.1.655825.3.579.2.462 Unknown [id number] 2.16.8 40.1.900329.3.579.2.462 Unknown [id number] 2.16.8 40.1.451726.3.579.2.462 Unknown [id number] 2.16.8 40.1.982858.3.579.2.462 Unknown [id number] 2.16.8 40.1.183697.3.579.2.462 Unknown [id number] 2.16.8 40.1.168433.3.579.2.462 Unknown [id number] 2.16.8 40.1.500261.3.579.2.462 Unknown [id number] 2.16.8 40.1.667691.3.579.2.462 Unknown [id number] 2.16.8 40.1.716653.3.579.2.462 Unknown [id number] 2.16.8 40.1.880193.3.579.2.462 Unknown [id number] 2.16.8 40.1.238296.3.579.2.462 Unknown [id number] 2.16.8 40.1.136116.3.579.2.462 Unknown [id number] 2.16.8 40.1.475774.3.579.2.462 Unknown [id number] 2.16.8 40.1.332591.3.579.2.462 Unknown [id number] 2.16.8 40.1.429898.3.579.2.462 Unknown [id number] 2.16.8 40.1.760331.3.579.2.462 Unknown [id number] 2.16.8 [id number] Social History Date Type Detail Facility Start: 12-07-2021 End: 02-19-2024 Tobacco smoking status NYIS Unknown if ever smoked [facility] Start: 01-31-2021 None [facility] Start: 01-31-2021 Spouse/ Signif icant Other [facility] Start: 02-19-2020 Non-smoker [facility] Start: 1940 Sex Assigned At Male [facility] Start: 06-15-2019 End: 05-31-2025 Tobacco smoking status Ex-smoker (finding) [facility] Comment on above: no smoke exposure Start: 06-29-2023 Cigarettes [facility] Start: 02-27-2025 Sex Male (finding) [facility] Goals Date Patient Goal Desired Activity /State Functional Status Date Assessment Result Facility 09-22-2023 Functional status Ambulates;Chair [facility] Work Phone: 08-22-2023 Functional status With Assist of 1 [facility] Work Phone: 08-21-2023 Functional status Dangle Feet;Chair [facility] Work Phone: 08-20-2023 Functional status Standard Walker [facility] Work Phone: 08-18-2023 Functional status Ambulates [facility] Work Phone: 08-11-2023 Functional status Bedrest [facility] Work Phone: 08-10-2023 Functional status Tolerates Activity Fair [facility] Work Phone: 07-27-2023 Functional status Bedrest [facility] Work Phone: 07-26-2023 Functional status Assistive Radha pablito Rolling Walker [facility] Work Phone: 07-11-2023 Functional status Chair [facility] Work Phone: 07-03-2023 Functional status Bedrest [facility] Work Phone: 07-03-2023 Functional status Standard Walker [facility] Work Phone: Mental Status Date Assessment Result Facility 05-31-2025 Cognitive function Awake;Alert;A ppropriate;Follow s Commands [facility] Work Phone: 02-19-2024 Cognitive function Level Of Cons ciousness Awake;Alert;Appropriate;Follow s Commands [facility] Work Phone: 11-23-2023 Cognitive function Voice/Name [facility] Work Phone: 09-28-2023 Cognitive function Voice/Name [facility] Work Phone: 09-22-2023 Cognitive function Voice/Name [facility] Work Phone: 08-22-2023 Cognitive function Voice/Name [facility] Work Phone: 08-18-2023 Cognitive function Touch/Shaking [facility] Work Phone: 08-17-2023 Cognitive function Touch/Shaking [facility] Work Phone: 08-10-2023 Cognitive function Voice/Name [facility] Work Phone: 08-09-[address] [facility] Work Phone: 07-27-2023 Cognitive function Voice/Name;Touch/Shaki ng [facility] Work Phone: 07-27-2023 Cognitive function Anxious;Restless;Fatig ued [facility] Work Phone: 07-10-2023 Cognitive function Voice/Name [facility] Work Phone: 07-03-2023 Cognitive function Voice/Name [facility] Work Phone: 06-29-2023 Cognitive function Voice/Name [facility] Work Phone: 07-12-2022 Cognitive function Awake;Alert;A ppropriate;Follow s Commands [facility] Work Phone: 03-15-2022 Cognitive function Awake;Alert;A ppropriate;Follow s Commands [facility] Work Phone: Clinical Notes 02-24-2016 to 06-20-2025 Note Date & Type Note Facility 06-20-2025 Progress note Note Date/Time June 20, 2025 3:43pm [facility] [address] [place] [address] OFFICE VISIT Date of Service: 06/20/25 MR#: [id number] Acct: [id number] Name: JODIE CARDENAS Rep #: [id number] 2 : 1940 Provider: Dr. Nasreen Shook MD Age/Sex: 85/M Location: [facility] Status: Signed HPI HPI History of Present Illness Details: Jodie Cardenas is an 85-year-old gentleman that presents here today for a cardiovascular follow-up. He has a history of coronary artery disease status post carotid bypass surgery redo with a left internal mammary artery to the leftanterior descending artery and saphenous vein graft to [...] an aortic valve replacement with a 25 mmCarpentier Sheppard valve. He also has a history of ischemic cardiomyopathy, paroxysmal atrial fibrillation, hypertension, hyperlipidemia, TIA, diabetes mellitus type 2, and COPD. He feels his breathing at baseline. he is on O2 continuous. He does have someswelling in in his feet but it is better in the AM. He does occasionally have lightheadedness. He has never had a syncopal events. He is not aware of his Afib. He is on palliative care. Intake Vital Signs 09/24/24 08:27 06/13/25 10:26 06/20/25 15:07 Height 5 ft 5 in 5 ft 5 in 5 ft 5 in Weight: 234 lb BMI 38.9 BP 125/59 H Blood Pressure Location Lt brachial Position Sitting Respiration 18 Pulse 52 L Pulse Source Monitor Intake Visit Reasons: 9 M Senior Climate Advisor Required: No Is patient in pain?: No Allergies Penicillins (PCN) Allergy (Verified 06/20/25 15:09) Swelling Medications ?Medication ?Instructions ?Recorded ?Confirmed ?Type aspirin 81 mg tablet,delayed 81 mg PO DAILY HEART HEAL [facility] 07/11/16 06/20/25 History release multivitamin 1 ea PO DAILY [facility] 07/11/16 06/20/25 History insulin regular human 100 unit/mL 10 unit subcut BID D IABETES 07/24/16 06/20/25 History injection solution cholecalciferol (vitamin D3) 25 25 mcg PO DAILY SUPPLE MENT 10/26/16 06/20/25 History mcg (1,000 unit) tablet sertraline 25 mg tablet 25 mg PO DAILY DEPRESSION 06/20/25 History famotidine 20 mg tablet 20 mg PO DAILY GERD 11/13/19 06/20/25 History olanzapine 2.5 mg tablet 2.5 mg PO QHS DEPRESSION 06/20/25 History allopurinol 300 mg tablet 300 mg PO DAILY GOUT 2 06/20/25 History apixaban 2.5 mg tablet (Eliquis) 2.5 mg PO BID BLOOD T HINNER 10/07/22 06/20/25 History calcitriol 0.25 mcg capsule 0.5 mcg PO MOWEFR SUPPLEME NT 10/07/22 06/20/25 History potassium chloride 20 mEq 20 meq PO DAILY potassium #1 TAB 07/03/23 06/20/25 Rx tablet,extended release psyllium husk 3 gram oral powder 1 packet PO BID const ipation #0 ea 07/03/23 06/20/25 Rx packet (Daily Fiber (psyllium-aspartame)) menthol 0.44 %-zinc oxide 20.6 % 1 applic topical BID 08/18/23 06/20/25 History topical ointment (Calmoseptine) nystatin 100,000 unit/gram topical 1 applic topical BI D 08/18/23 06/20/25 History powder (Nystop) nitroglycerin 0.4 mg sublingual 0.4 mg sublingual Q5-1 5M PRN chest 03/23/24 06/20/25 Rx tablet (Nitrostat) pain #25 tabs isosorbide mononitrate 30 mg 30 mg PO DAILY HEART #90 tabs 03/28/24 06/20/25 Rx tablet,extended release 24 hr amlodipine 2.5 mg tablet 2.5 mg PO DAILY #90 tabs 06/20/25 Rx furosemide 40 mg tablet 40 mg PO QDAY #90 tabs 01/2506/20/25 Rx insulin NPH isoph U-100 human 100 10 unit subcut BID D IABETES 05/31/25 06/20/25 History unit/mL subcutaneous suspension levetiracetam 500 mg tablet 500 mg PO BID 05/31/25 History Have you fallen in the past year?: No PFSH Medical History Anemia Atherosclerosis of coronary artery bypass graft without angina pectoris Atherosclerosis of coronary artery of belkofski heart without angina pectoris 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 Smoking Status: Former smoker how long ago did patient quit smokin + years alcohol intake: never substance use type: does not use caffeine: Yes Type: carbonated beverages and tea ROS Const Const: Positive for weakness; Negative for fatigue, headache(s), daytime sleepiness or difficulty sleeping ENT ENT: Positive for dizziness; Negative for headache(s) or Nosebleed/epistaxis Cardio Chest Pain: No Palpitations: Yes (when ambulating) Edema: Bilateral (BLE) Resp Respiratory: Positive for SOB with activity and SOB at rest (on O2); Negative for SOB orthopnea\SOB lying down or Cough GI GI: Positive for heartburn; Negative nausea or vomiting Neuro Neuro: Positive for dizziness, near syncope and weakness; Negative for lightheadedness or headache(s) Endo Endo: Negative for fatigue Cardiology Exam Const Appearance: cooperative, no acute distress, disheveled and frail appearing Nutritional Appearance: average body habitus Orientation: alert, awake and oriented x3 Head Head: normal to inspection, normocephalic and atraumatic Ears: hearing grossly normal bilaterally and external ears normal Nose: external nose normal and nares normal Face and Sinus: face symmetric Mouth: oral mucosae normal Eyes General: appearance normal, both eyes and all related structures Eyelids: eyelids normal Conjunctivae: conjunctivae normal Pupils: PERRL, normal by confrontation and accommodation normal EOM: EOM intact bilaterally Neck Neck: normal visual inspection, trachea midline and no JVD JVD: +5 Carotids: normal carotid upstroke and bounding pulses Chest Chest inspection: normal inspection of the chest, symmetric chest movement, normal respiratory effort and other (02 therapy) Auscultation: Bilateral: Diminished Lung Sounds Cardio Palpation: normal PMI Rate: regular rate Rhythm: regular rhythm Heart sounds: S1 normal, S2 normal and normal, physiologic split S2; Negative rub, gallop or murmur GI GI: normal to inspection, soft, no hepatosplenomegaly and bowel sounds present Neuro General: patient alert, patient awake, patient oriented x3, gait normal, moves all extremities and no focal sensory deficit Extremities Pulses: Diminished: Right Posterior Tibial Pulse, Left Posterior Tibial Pulse, Right Radial Pulse and Left Radial Pulse Lower Extremity Edema: Trace: Bilateral (L>R) Musculoskel Musculoskeletal: No joint tenderness Psych Psychological: normal affect Supplemental Info Supplemental Information Echocardiogram 10/10/2024 Interpretation Summary Normal LV size. The left ventricular ejection fraction is 40 %. Pulmonary artery systolic pressure is 43 mmHg. Bioprosthetic aortic valve. Mean aortic valve gradient 13 mmHg. Mild mitral valve stenosis. Contrast injection was performed. The study was technically difficult. Heart catheterization from 02/18/2016: CONCLUSION: 1. Hypertension. 2. Severe graft disease with the following: A. Normal left main coronary artery. B. Left anterior descending artery, which is totally occluded. C. Right coronary artery, which is totally occluded. D. Left circumflex artery, which is moderately severely diseased in the proximaland mid segments. E. Saphenous vein graft to the left anterior descending artery with a high-gradeanastomotic site stenosis. F. Saphenous vein graft to the circumflex artery with proximal 80% stenosis, mid95% stenosis and distal long 80% stenosis. 3. Saphenous vein graft to the right coronary artery with 50-60% mid segment stenosis. 4. Left internal mammary artery to the diagonal vessel with mild disease. 5. His ejection fraction is noted to be approximately 50% by echocardiographic evaluation; and after discussing with sales representative [employer], the plan willbe to refer him to a tertiary care center for looking towards high risk intervention versus redo bypass surgery. Carotid Duplex 06/30/23 Interpretation Summary Mild (<50%) stenosis right extracranial internal carotid. Mild (<50%) stenosis left extracranial internal carotid. Patent and antegrade vertebrals bilaterally. Head/Neck CTA 08/18/23 IMPRESSION: Greater than 70% stenosis at the origin of the left internal carotid artery. Less than 50% stenosis at the origin of the right internal carotid artery. Labs: HDL Cholesterol 39 mg/dL (40-) L Cholesterol 142 mg/dL (<=200) Triglycerides 115 mg/dL (-199) Diagnostics: Electrocardiogram Chest X-Ray Pulmonary: No Data to Display Past Visits: Cardiology Visit 06/20/25 Assessment and Plan Assessment and Plan (1) Atherosclerosis of coronary artery of belkofski heart without angina pectoris: Status: Chronic Comment: Redo CABG x 3 SVG-LAD, SVG OM of Cx, SVG- PDA of RCA and aortic valve replacement with #25 Pietro-Sheppard valve- 02/24/2016; CABG x 4 OAKLEY-D1, SVG-Distal LAD, SVG-Lat CX, SVG-RCA 12/15/98; Plan: Patient denies any chest, arm, jaw, or neck discomfort suggestive of angina. His shortness of breath appears to be at baseline. He'll continue current medical therapy and we'll continue to monitor. (2) H/O aortic valve replacement: Status: Chronic Comment: aortic valve replacement with #25 Pietro-Sheppard valve. 02/24/2016 Plan: He is due to have his echocardiogram reevaluated. He'll continue current medical therapy. He'll continue antibiotic prophylaxis. (3) Essential (primary) hypertension: Status: Chronic Plan: He'll continue current medical therapy. (4) Hyperlipemia: Status: Chronic Qualifiers: Hyperlipidemia type: pure hypercholesterolemia Qualified Code(s): E78.00 - Pure hypercholesterolemia, unspecified; E78.0 - Pure hypercholesterolemia Plan: He'll continue current medical therapy. (5) Paroxysmal atrial fibrillation: Status: Chronic Plan: He denies any symptomatic recurrence. He'll continue metoprolol for rate control. He we will continue Eliquis for CVA protection. We will continue to monitor. Plan Details Additional Comments: Thank you for allowing us to participate in the patients plan of care, if you have any questions please do not hesitate to call. This note was generated using a voice recognition system and there may be incorrect words, spelling or punctuation that were not noted when reviewing the office note prior to saving. Portions of this documentation were copied and pasted from previous office visitnotes to provide a cohesive continuity of the history. The note has been reviewed, edited, and updated, as necessary. Follow Up: 6 Months (mmm) Coding Level of Care Code Off vis,est,level 4 Diagnoses Atherosclerosis of coronary artery of belkofski heart without angina pectoris I25.10 H/O aortic valve replacement Z95.2 Essential (primary) hypertension I10 Pure hypercholesterolemia E78.00; E78.0 Hyperlipidemia type: pure hypercholesterolemia Paroxysmal atrial fibrillation I48.0 Coding Level of Care Code Off vis,est,level 4 Diagnoses Atherosclerosis of coronary artery of belkofski heart without angina pectoris I25.10 H/O aortic valve replacement Z95.2 Essential (primary) hypertension I10 Pure hypercholesterolemia E78.00; E78.0 Hyperlipidemia type: pure hypercholesterolemia Paroxysmal atrial fibrillation I48.0 Clinical Quality Measures Falls Risk Screening/Assistive Devices Have you fallen in the past year?: No 06/20/25 1544 <Electronically signed by Christian Bustos> Date _ Christian Shook MD Cosigner Signature: Date (if applicable) CC: Dr. Rios Downey DO ~ [employer] Work Phone: [phone]) [phone] Discharge summary [facility] Medical Records Department [address] [place] [id number] Emergency Department Summary 05/31/25 MR#: [id number] Acct: [id number] Name: JODIE CARDENAS Rep #:[id number] : 1940 85 From: Duc Vicente MD PCP: Dr. Rios Downey, DO Status:REG ER Location: ED HPI History of Present Illness Chief Complaint: Confusion Detail of Chief Complaint: Not responsive for a minute or 2 per daughter Informant: family Limited: other (Amnesia) Onset/Context/Timing Onset: Today and Hours (Approximately 1 hour prior to presentation) Context: Sudden Onset Timing: Intermittent (Several minutes) Quality: Not responsive to verbal or tactile stimulus, and was breathing funny Location: Backseat of car going to [employer] Current Severity: Gone Maximum Severity: Severe Worsened by: Unknown Relieved by: Not applicable Associated Symptoms Associated Symptoms: Breathing funny Narrative Narrative: Patient is a 85-year-old male with history of CHF, chronic hypoxemic respiratoryfailure on 3 L of oxygen by nasal cannula at rest and 5 L with activity. He had1 episode of a seizure which was attributed to an antibiotic. He is on anticoagulant. He does have history of atrial fibrillation, coronary a rtery disease, hyperlipidemia, essential hypertension, stage III chronic kidney disease and obstructive sleep apnea. He does not know what happened. He presently has no complaints. When in the room he was cyanotic. He was off his oxygen to take his shirt off. He presently denies chest pain, he denies increased shortness of breath from baseline and denies pain with breathing. He denies headache, visual, ocular auditory symptoms. He denies abdominal pain and there is no nausea or vomiting. According to daughter he has not been in the hospital for some time. There is office visit March 14, 2025 authored by Gosia Esquivel for pulmonary medicine. Assessmentwas for obstructive sleep apnea. He is on BiPAP 1712. He had respirat ory failure complications due to chronic hypoxia. His last admission to the hospital was September 16, 2023. He was admitted at that time for exacerbation CHF acute on chronic, kidney disease stage IV with a GFR of 15-29, chronic respiratory failure, cardiac valve disease nonrheumatic. There is also a concern for underlying dementia. Daughter did mention that he does have dementia. Prior similar symptoms: No Recent Illness/Hospitalization: No PFSH PFS Medical History PAF (paroxysmal atrial fibrillation) AUTUMN treated with BiPAP Former smoker Chronic respiratory failure with hypoxia Atherosclerosis of coronary artery of belkofski heart without angina pectoris Essential (primary) hypertension Chronic combined systolic and diastolic CHF (congestive heart failure) Lymphedema COPD (chronic obstructive pulmonary disease) Ocular migraine TIA (transient ischemic attack) Anemia Type 2 diabetes mellitus without complications Obstructive sleep apnea Atherosclerosis of coronary artery bypass graft without angina pectoris Non-rheumatic aortic stenosis Left bundle branch block Morbid obesity with BMI of 45.0-49.9, adult Chronic renal failure, stage 3 (moderate) Hyperlipemia Venous insufficiency of both lower extremities Home Medications ?Medication ?Instructions ?Recorded ?Last Taken ?Type aspirin 81 mg tablet,delayed 81 mg PO DAILY HEART HEAL TH 07/11/16 07/03/23 History release multivitamin 1 ea PO DAILY HEALTH MAINTEN ANCE 07/11/16 08/18/23 History insulin regular human 100 unit/mL 10 unit subcut BID D IABETES 07/24/16 07/02/23 History injection solution cholecalciferol (vitamin D3) 25 25 mcg PO DAILY SUPPLE MENT 10/26/16 08/18/23 History mcg (1,000 unit) tablet sertraline 25 mg tablet 25 mg PO DAILY DEPRESSION 08/18/23 History famotidine 20 mg tablet 20 mg PO DAILY GERD 11/13/19 08/18/23 History olanzapine 2.5 mg tablet 2.5 mg PO QHS DEPRESSION 08/17/23 History allopurinol 300 mg tablet 300 mg PO DAILY GOUT 2 08/18/23 History apixaban 2.5 mg tablet (Eliquis) 2.5 mg PO BID BLOOD T HINNER 10/07/22 07/03/23 History calcitriol 0.25 mcg capsule 0.5 mcg PO MOWEFR SUPPLEME NT 10/07/22 08/17/23 History potassium chloride 20 mEq 20 meq PO DAILY potassium #1 TAB 07/03/23 Unknown Rx tablet,extended release psyllium husk 3 gram oral powder 1 packet PO BID const ipation #0 ea 07/03/23 07/03/23 Rx packet (Daily Fiber (psyllium-aspartame)) menthol 0.44 %-zinc oxide 20.6 % 1 applic topical BID 08/18/23 08/18/23 History topical ointment (Calmoseptine) nystatin 100,000 unit/gram topical 1 applic topical BI D 08/18/23 08/18/23 History powder (Nystop) nitroglycerin 0.4 mg sublingual 0.4 mg sublingual Q5-1 5M PRN chest 03/23/24 Unknown Rx tablet (Nitrostat) pain #25 tabs isosorbide mononitrate 30 mg 30 mg PO DAILY HEART #90 tabs 03/28/24 Unknown Rx tablet,extended release 24 hr amlodipine 2.5 mg tablet 2.5 mg PO DAILY #90 tabs Unknown Rx furosemide 40 mg tablet 40 mg PO QDAY #90 tabs 01/25 Unknown Rx insulin NPH isoph U-100 human 100 10 unit subcut BID D IABETES 05/31/25 Unknown History unit/mL subcutaneous suspension levetiracetam 500 mg tablet 500 mg PO BID 05/31/25 Unk nown History Allergy/AdvReac Type Severity Reaction Status Date / Time Penicillins (PCN) Allergy Swelling Verified 03/14/25 15:01 Family History Father Myocardial infarction Mother CVA (cerebral vascular accident) Brother CAD (coronary artery disease) Diabetes Surgical History Hx of cholecystectomy (01/13/17) H/O aortic valve replacement (02/24/16) H/O coronary artery bypass surgery (02/24/16) Social History household members: family and other details: Granddaughter. 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 Smoking Status: Former smoker how long ago did patient quit smokin + years alcohol intake: never substance use type: does not use caffeine: Yes Type: carbonated beverages and tea ROS ROS ED Constitutional Constitutional ED: Denies chills, fever(s), subjective or sweats Eyes Eyes: Denies blurry vision or change in vision ENT ENT ED: Denies ear pain, rhinorrhea or sore throat Cardiovascular Cardiovascular: Denies chest pain or palpitations Respiratory/Chest Respiratory/Chest: Denies cough, dyspnea or dyspnea on exertion Gastrointestinal Gastrointestinal: Denies abdominal pain, constipation, diarrhea or vomiting Genitourinary Genitourinary ED: Denies dysuria, hematuria or urinary frequency Musculoskeletal Musculoskeletal: Denies arthralgias or myalgias Integumentary Denies rash Neurologic Neurologic: Denies headache(s) or weakness Hematologic/Lymphatic Hematologic/Lymphatic: Reports systems reviewed and no addt'l complaints, exceptas documented EXAM Physical Exam Const Vital Signs: 05/31/25 22:00 05/31/25 22:20 05/31/25 22:22 Temperature 97.0 F L 97.8 F Temperature Source Temporal Oral Pulse Rate 51 L 55 L Respiratory Rate 16 20 H Blood Pressure 151/75 H 167/98 H Blood Pressure Mean 100 121 Pulse Ox 99 98 Oxygen Delivery Method Nasal Cannula Nasal Cannula Nasal Cannula Oxygen Flow Rate (L/min) 5 5 5 05/31/25 23:40 06/01/25 00:09 Temperature 98 F 97.9 F Temperature Source Oral Temporal Pulse Rate 53 L 57 L Respiratory Rate 11 L 16 Blood Pressure 113/64 140/75 H Blood Pressure Mean 80 96 Pulse Ox 100 100 Oxygen Delivery Method Oxygen Flow Rate (L/min) Positive well nourished and well developed Constitutional Narrative: Patient is cyanotic. He is tachypneic and breathing much faster than 16 times aminute. He is presently off his oxygen. General Appearance ED: well developed, cyanotic and pallor; Negative for diaphoretic or NAD HEENT Reports dry mucous membranes HEENT Narrative: Head is atraumatic and normocephalic. Ears are normal. Nose patent. Posteriorpharynx unremarkable. Mouth ED: Yes dry mucous membranes Mouth: dry mucous membranes Eyes PERRL and EOMs intact bilaterally General Eye ED: Negative for pale conjunctiva or scleral icterus Neck no lymphadenopathy, supple and no JVD Chest Wall inspection of chest normal and palpation of chest normal Resp No normal respiratory effort and No clear to auscultation bilaterally Resp Narrative: Patient is tachypneic. There is minimal use of accessory muscles. Auscultation: rales left lower Cardio regular rate, regular rhythm and no murmurs GI normal to inspection, nondistended, normoactive bowel sounds, non-tender, non- distended and no masses; Negative for hepatosplenomegaly Palpation: soft Back/Spine no CVA tenderness Extremity Negative for normal to inspection Extremity Narrative: Venous stasis dermatitis with eczema lower extremity exam Neuro oriented x3, CN's II-XII intact bilaterally and no sensory deficits noted Neuro Narrative: NIH is 0. Sensorium / Orientation: alert Motor Exam: strength 5/5 throughout Psych mental status grossly normal Skin No no rashes or lesions noted and No no wounds General Skin Exam: pallor; Negative for jaundice MDM MDM MDM Narrative Medical decision making narrative: This may be due to a metabolic or infectious etiology. This could represent a dysrhythmia. This could be related to his chronic respiratory failure. This could represent atypical neurologic event as well. Patient was made NPO. CT ofthe head was obtained without contrast. Appropriate blood work was ordered. AnABG was ordered to evaluate for hypercapnia. He is saturating 91% on 5 L. History & Record Review Additional record(s) reviewed:: Prior inpatient record, Prior outpatient record,Prior ED visit and Prior labs Lab Data Attestation: I reviewed the patient's lab results. Lab results narrative: CBC reveals macrocytic anemia. Lactate is normal. Comprehensive metabolic panel is remarked for BUN/creatinine of 54 and 2.54. This is patient's baseline. Glucose is slightly elevated 116. BUN/creatinine ratio is elevated 41-1. Transaminases are normal. Labs: Laboratory Results - last 24 hr 05/31/25 05/31/25 11:00 22:13 WBC 6.0 RBC 3.67 L Hgb 11.9 L Hct 37.3 L MCV 101.6 H MCH 32.4 H MCHC 31.9 L RDW Std Deviation 55.1 H RDW Coeff of Yeny 15.0 H Plt Count 110 L MPV 11.9 Immature Gran % (Auto) 0.500 Neut % (Auto) 58.3 Lymph % (Auto) 30.0 Blount % (Auto) 8.5 Eos % (Auto) 2.2 Baso % (Auto) 0.5 Absolute Neuts (auto) 3.5 Absolute Lymphs (auto) 1.81 Nucleated RBC % 0 Sodium 142 Potassium 4.9 Chloride 108 Carbon Dioxide 21.8 Anion Gap 12 BUN 54 H Creatinine 2.54 H Estim Creat Clear Calc 24.99 L Est GFR (MDRD) Non-Af 24 L BUN/Creatinine Ratio 21.1 H Glucose 116 H Lactic Acid 1.7 Calcium 9.6 Total Bilirubin 0.76 AST 27 ALT 12 Alkaline Phosphatase 208 H Total Protein 7.6 Albumin 4.0 Globulin 3.6 Albumin/Globulin Ratio 1.1 Urine Color Yellow Urine Clarity Clear Urine pH 5.0 Ur Specific Plover 1.015 Urine Protein 100 H Urine Glucose (UA) Normal Urine Ketones Negative Urine Occult Blood 10 H Urine Nitrite Negative Urine Bilirubin Negative Urine Urobilinogen Normal Ur Leukocyte Esterase Negative Urine RBC 0-5 SEEN Urine WBC 0-5 SEEN Ur Squamous Epith Cells 0 SEEN Urine Bacteria RARE Hyaline Casts 0-5 SEEN Urine Mucus RARE ABG Data Attestation: I personally reviewed and interpreted this ABG as follows: Interpretation: ABG reveals increased AA gradient. pH is 7.41, bicarb 24, total CO2 25, base excess -1, saturation 94% on 5 L by nasal cannula. pCO2 is normal at 38.1 and PO2 is 71. ABG results: ABG 05/31/25 23:22 Specimen Type ART Sample Site R Brach pH 7.41 Bicarbonate Actual 24.0 Total CO2 25 Base Excess -1 O2 Saturation 94 L O2 % 5.0 ABG pCO2 38.1 ABG pO2 71 L Pavel Test Positive O2 Delivery Device Cannula Vent Mode Not entered Radiography Chest X-Ray - ED: 2 View and Read by ED Physician (Return reviewed interpreted by me at 2250. Thereis cardiomegaly. He has sternotomy wires noted. She has had a valve replacement. There is no infiltrate, effusion, pneumothorax or evidence of CHF. His film was rotated which makes difficult to assess the hilumfor any obvious abnormality. [place]) Diagnostic Testing: Clinical Impression(s) from Imaging Studies Chest X-Ray 05/31/25 22:37 IMPRESSION: CARDIOMEGALY. NO ACUTE FINDINGS. Reading Location: [facility] EKG Initial EKG: Attestation: I personally reviewed and interpreted this EKG as follows: Interpretation: Atrial Fibrillation (Atrial fibrillation with a rate of 60. OR interval not applicable. QRS duration 58 ms. There is evidence of leftbundle branch block. QT duration is 484 ms. Hasty is normal) Treatment and Re-Evaluation :: Patient and family were informed of results. Patient was discharged home. Patient's blood pressure did improve. Comments:: Patient and daughter state that he does not drink alcohol. He has not had a workup for folate or vitamin B-12 deficiency, pernicious anemia workup. Discharge Plan Triage Chief Complaint: Confusion ED Provider: Duc Vicente Dx/Rx/DC Orders Clinical Impression: Change in level of consciousness, Left bundle branch block, Essential (primary)hypertension, Hyperlipemia, Atrial fibrillation, CKD (chronic kidney disease) stage 4, GFR 15-29 ml/min, Cardiomegaly, Bradycardia, Chronic hypoxic respiratory failure Instructions: ED ALOC Prescriptions: No Action famotidine 20 mg tablet 20 mg PO DAILY olanzapine 2.5 mg tablet 2.5 mg PO QHS Eliquis 2.5 mg tablet 2.5 mg PO BID nitroglycerin [Nitrostat] 0.4 mg tablet, sublingual 0.4 mg sublingual Q5-15M PRN (Reason: chest pain) Qty: 25 3RF Rx Instructions: do not exceed 3 doses per episode aspirin 81 MG tablet,delayed release (DR/EC) 81 mg PO DAILY Patient Comments: multivitamin 1 EACH tablet 1 ea PO DAILY insulin regular human 100 UNIT/ML solution 10 unit SC BID Patient Comments: afternoon and night cholecalciferol (vitamin D3) 1,000 UNIT tablet 25 mcg PO DAILY sertraline 25 MG tablet 25 mg PO DAILY calcitriol 0.25 mcg capsule 0.5 mcg PO MOWEFR allopurinol 300 mg tablet 300 mg PO DAILY Daily Fiber (psyllium-aspart) 3 gram Powder In Packet 1 packet PO BID Qty: 0 0RF potassium chloride 20 mEq tablet extended release 20 meq PO DAILY Qty: 1 0RF menthol-zinc oxide [Calmoseptine] 0.44-20.6 % ointment 1 applic topical BID nystatin [Nystop] 100,000 unit/gram powder 1 applic topical BID levetiracetam 500 mg tablet 500 mg PO BID insulin NPH isoph U-100 human 100 unit/mL suspension 10 unit SC BID isosorbide mononitrate 30 mg tablet extended release 24 hr 30 mg PO DAILY Qty: 90 4RF amlodipine 2.5 mg tablet 2.5 mg PO DAILY Qty: 90 3RF furosemide 40 mg tablet 40 mg PO QDAY Qty: 90 3RF Primary Care Provider: Rios Downey Referrals: Rios Downey DO [Primary Care Provider] - 3-5 Days Print Language: Croatian Disposition Disposition: Home, Self Care What to do if you have Problems For any increased pain, shortness of breath, bleeding, nausea or vomiting, chestpain, or any unexpected problems, contact your Primary Care Provider. Call [facility] ([phone]) or report tothe closest Emergency Room. Call 911 if necessary. 06/01/2530 Cosigner Signature (if applicable): CC: Dr. Rios Downey DO ~ Signed [facility]07-04-2025 Radiology Diagnostic study note [facility] Imaging Services [address] [place], [place] [id number] Chest PA and Lateral MR#: [id number] Acct: [id number] Name: JODIE CARDENAS Rep #: [id number] : 1940 M 85 From: Vicky Avalos MD PCP: Dr. Rios Downey DO Status: REG ER Study:Chest PA and Lateral Date of Exam: 05/31/25 Exam# [id number] Ordering Dr: Cherie Vicente MD PROCEDURE: CHEST PA AND LATERAL 05/31/2025 REASON FOR EXAM: RALES LEFT LOWER LOBE TECHNIQUE: CHEST PA AND LATERAL COMPARISON: Chest radiograph 02/19/2024. FINDINGS: Hardware: Prior median sternotomy and aortic valve replacement. Heart: Stable moderate cardiomegaly and pulmonary vascular congestion. Mediastinum: There are atherosclerotic calcifications of the thoracic aorta. Lungs: Bibasilar atelectasis/scarring. No focal consolidation, pleural effusionor pneumothorax. Bones: Degenerative changes are identified within the thoracic spine. Arthrosisof the bilateral glenohumeral joints. RAD/Chest PA and Lateral IMPRESSION: CARDIOMEGALY. NO ACUTE FINDINGS. Reading Location: [id number] CC: Dr. Rios Downey DO; Dr. Duc Vicente MD ~ Heel Edge Inker Machine: Signed [facility]07-04-2025 Discharge summary Author Dcu Vicente [facility] Note Date/Time June 01, 2025 12:31 am [facility] Medical Records Department [address] [place] [address] Emergency Department Summary 05/31/25 MR#: [id number] Acct: [id number] Name: JODIE CARDENAS Rep #:[id number] : 1940 85 From: Duc Vicente MD PCP: Dr. Rios Downey, DO Status:REG ER Location: ED HPI History of Present Illness Chief Complaint: Confusion Detail of Chief Complaint: Not responsive for a minute or 2 per daughter Informant: family Limited: other (Amnesia) Onset/Context/Timing Onset: Today and Hours (Approximately 1 hour prior to presentation) Context: Sudden Onset Timing: Intermittent (Several minutes) Quality: Not responsive to verbal or tactile stimulus, and was breathing funny Location: Backseat of car going to [employer] Current Severity: Gone Maximum Severity: Severe Worsened by: Unknown Relieved by: Not applicable Associated Symptoms Associated Symptoms: Breathing funny Narrative Narrative: Patient is a 85-year-old male with history of CHF, chronic hypoxemic respiratoryfailure on 3 L of oxygen by nasal cannula at rest and 5 L with activity. He had1 episode of a seizure which was attributed to an antibiotic. He is on anticoagulant. He does have history of atrial fibrillation, coronary artery disease, hyperlipidemia, essential hypertension, stage III chronic kidney disease and obstructive sleep apnea. He does not know what happened. He presently has no complaints. When in the room he was cyanotic. He was off his oxygen to take his shirt off. He presently denies chest pain, he denies increased shortness of breath from baseline and denies pain with breathing. He denies headache, visual, ocular auditory symptoms. He denies abdominal pain and there is no nausea or vomiting. According to daughter he has not been in the hospital for some time. There is office visit March 14, 2025 authored by Gosia Esquivel for pulmonary medicine. Assessmentwas for obstructive sleep apnea. He is on BiPAP 1712. He had respiratory failure complications due to chronic hypoxia. His last admission to the hospital was September 16, 2023. He was admitted at that time for exacerbation CHF acute on chronic, kidney disease stage IV with a GFR of 15-29, chronic respiratory failure, cardiac valve disease nonrheumatic. There is also a concern for underlying dementia. Daughter did mention that he does have dementia. Prior similar symptoms: No Recent Illness/Hospitalization: No PFSH PFSH Medical History PAF (paroxysmal atrial fibrillation) AUTUMN treated with BiPAP Former smoker Chronic respiratory failure with hypoxia Atherosclerosis of coronary artery of belkofski heart without angina pectoris Essential (primary) hypertension Chronic combined systolic and diastolic CHF (congestive heart failure) Lymphedema COPD (chronic obstructive pulmonary disease) Ocular migraine TIA (transient ischemic attack) Anemia Type 2 diabetes mellitus without complications Obstructive sleep apnea Atherosclerosis of coronary artery bypass graft without angina pectoris Non-rheumatic aortic stenosis Left bundle branch block Morbid obesity with BMI of 45.0-49.9, adult Chronic renal failure, stage 3 (moderate) Hyperlipemia Venous insufficiency of both lower extremities Home Medications ?Medication ?Instructions ?Recorded ?Last Taken ?Type aspirin 81 mg tablet,delayed 81 mg PO DAILY HEART HEAL TH 07/11/16 07/03/23 History release multivitamin 1 ea PO DAILY HEALTH MAINTEN ANCE 07/11/16 08/18/23 History insulin regular human 100 unit/mL 10 unit subcut BID D IABETES 07/24/16 07/02/23 History injection solution cholecalciferol (vitamin D3) 25 25 mcg PO DAILY SUPPLE MENT 10/26/16 08/18/23 History mcg (1,000 unit) tablet sertraline 25 mg tablet 25 mg PO DAILY DEPRESSION 08/18/23 History famotidine 20 mg tablet 20 mg PO DAILY GERD 11/13/19 08/18/23 History olanzapine 2.5 mg tablet 2.5 mg PO QHS DEPRESSION 08/17/23 History allopurinol 300 mg tablet 300 mg PO DAILY GOUT 2 08/18/23 History apixaban 2.5 mg tablet (Eliquis) 2.5 mg PO BID BLOOD T HINNER 10/07/22 07/03/23 History calcitriol 0.25 mcg capsule 0.5 mcg PO MOWEFR SUPPLEME NT 10/07/22 08/17/23 History potassium chloride 20 mEq 20 meq PO DAILY potassium #1 TAB 07/03/23 Unknown Rx tablet,extended release psyllium husk 3 gram oral powder 1 packet PO BID const ipation #0 ea 07/03/23 07/03/23 Rx packet (Daily Fiber (psyllium-aspartame)) menthol 0.44 %-zinc oxide 20.6 % 1 applic topical BID 09/21/23 09/21/23 History topical ointment (Calmoseptine) nystatin 100,000 unit/gram topical 1 applic topical BI D 08/18/23 08/18/23 History powder (Nystop) nitroglycerin 0.4 mg sublingual 0.4 mg sublingual Q5-1 5M PRN chest 03/23/24 Unknown Rx tablet (Nitrostat) pain #25 tabs isosorbide mononitrate 30 mg 30 mg PO DAILY HEART #90 tabs 03/28/24 Unknown Rx tablet,extended release 24 hr amlodipine 2.5 mg tablet 2.5 mg PO DAILY #90 tabs Unknown Rx furosemide 40 mg tablet 40 mg PO QDAY #90 tabs 01/25 Unknown Rx insulin NPH isoph U-100 human 100 10 unit subcut BID D IABETES 05/31/25 Unknown History unit/mL subcutaneous suspension levetiracetam 500 mg tablet 500 mg PO BID 05/31/25 Unk nown History Allergy/AdvReac Type Severity Reaction Status Date / Time Penicillins (PCN) Allergy Swelling Verified 03/14/25 15:01 Family History Father Myocardial infarction Mother CVA (cerebral vascular accident) Brother CAD (coronary artery disease) Diabetes Surgical History Hx of cholecystectomy (01/13/17) H/O aortic valve replacement (02/24/16) H/O coronary artery bypass surgery (02/24/16) Social History household members: family and other details: Granddaughter. 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 Smoking Status: Former smoker how long ago did patient quit smokin + years alcohol intake: never substance use type: does not use caffeine: Yes Type: carbonated beverages and tea ROS ROS ED Constitutional Constitutional ED: Denies chills, fever(s), subjective or sweats Eyes Eyes: Denies blurry vision or change in vision ENT ENT ED: Denies ear pain, rhinorrhea or sore throat Cardiovascular Cardiovascular: Denies chest pain or palpitations Respiratory/Chest Respiratory/Chest: Denies cough, dyspnea or dyspnea on exertion Gastrointestinal Gastrointestinal: Denies abdominal pain, constipation, diarrhea or vomiting Genitourinary Genitourinary ED: Denies dysuria, hematuria or urinary frequency Musculoskeletal Musculoskeletal: Denies arthralgias or myalgias Integumentary Denies rash Neurologic Neurologic: Denies headache(s) or weakness Hematologic/Lymphatic Hematologic/Lymphatic: Reports systems reviewed and no addt'l complaints, exceptas documented EXAM Physical Exam Const Vital Signs: 05/31/25 22:00 05/31/25 22:20 05/31/25 22:22 Temperature 97.0 F L 97.8 F Temperature Source Temporal Oral Pulse Rate 51 L 55 L Respiratory Rate 16 20 H Blood Pressure 151/75 H 167/98 H Blood Pressure Mean 100 121 Pulse Ox 99 98 Oxygen Delivery Method Nasal Cannula Nasal Cannula Nasal Cannula Oxygen Flow Rate (L/min) 5 5 5 05/31/25 23:40 06/01/25 00:09 Temperature 98 F 97.9 F Temperature Source Oral Temporal Pulse Rate 53 L 57 L Respiratory Rate 11 L 16 Blood Pressure 113/64 140/75 H Blood Pressure Mean 80 96 Pulse Ox 100 100 Oxygen Delivery Method Oxygen Flow Rate (L/min) Positive well nourished and well developed Constitutional Narrative: Patient is cyanotic. He is tachypneic and breathing much faster than 16 times aminute. He is presently off his oxygen. General Appearance ED: well developed, cyanotic and pallor; Negative for diaphoretic or NAD HEENT Reports dry mucous membranes HEENT Narrative: Head is atraumatic and normocephalic. Ears are normal. Nose patent. Posteriorpharynx unremarkable. Mouth ED: Yes dry mucous membranes Mouth: dry mucous membranes Eyes PERRL and EOMs intact bilaterally General Eye ED: Negative for pale conjunctiva or scleral icterus Neck no lymphadenopathy, supple and no JVD Chest Wall inspection of chest normal and palpation of chest normal Resp No normal respiratory effort and No clear to auscultation bilaterally Resp Narrative: Patient is tachypneic. There is minimal use of accessory muscles. Auscultation: rales left lower Cardio regular rate, regular rhythm and no murmurs GI normal to inspection, nondistended, normoactive bowel sounds, non-tender, non-distended and no masses; Negative for hepatosplenomegaly Palpation: soft Back/Spine no CVA tenderness Extremity Negative for normal to inspection Extremity Narrative: Venous stasis dermatitis with eczema lower extremity exam Neuro oriented x3, CN's II-XII intact bilaterally and no sensory deficits noted Neuro Narrative: NIH is 0. Sensorium / Orientation: alert Motor Exam: strength 5/5 throughout Psych mental status grossly normal Skin No no rashes or lesions noted and No no wounds General Skin Exam: pallor; Negative for jaundice MDM MDM MDM Narrative Medical decision making narrative: This may be due to a metabolic or infectious etiology. This could represent a dysrhythmia. This could be related to his chronic respiratory failure. This could represent atypical neurologic event as well. Patient was made NPO. CT ofthe head was obtained without contrast. Appropriate blood work was ordered. AnABG was ordered to evaluate for hypercapnia. He is saturating 91% on 5 L. History & Record Review Additional record(s) reviewed:: Prior inpatient record, Prior outpatient record,Prior ED visit and Prior labs Lab Data Attestation: I reviewed the patient's lab results. Lab results narrative: CBC reveals macrocytic anemia. Lactate is normal. Comprehensive metabolic panel is remarked for BUN/creatinine of 54 and 2.54. This is patient's baseline. Glucose is slightly elevated 116. BUN/creatinine ratio is elevated 41-1. Transaminases are normal. Labs: Laboratory Results - last 24 hr 05/31/25 05/31/25 11:00 22:13 WBC 6.0 RBC 3.67 L Hgb 11.9 L Hct 37.3 L MCV 101.6 H MCH 32.4 H MCHC 31.9 L RDW Std Deviation 55.1 H RDW Coeff of Yeny 15.0 H Plt Count 110 L MPV 11.9 Immature Gran % (Auto) 0.500 Neut % (Auto) 58.3 Lymph % (Auto) 30.0 Blount % (Auto) 8.5 Eos % (Auto) 2.2 Baso % (Auto) 0.5 Absolute Neuts (auto) 3.5 Absolute Lymphs (auto) 1.81 Nucleated RBC % 0 Sodium 142 Potassium 4.9 Chloride 108 Carbon Dioxide 21.8 Anion Gap 12 BUN 54 H Creatinine 2.54 H Estim Creat Clear Calc 24.99 L Est GFR (MDRD) Non-Af 24 L BUN/Creatinine Ratio 21.1 H Glucose 116 H Lactic Acid 1.7 Calcium 9.6 Total Bilirubin 0.76 AST 27 ALT 12 Alkaline Phosphatase 208 H Total Protein 7.6 Albumin 4.0 Globulin 3.6 Albumin/Globulin Ratio 1.1 Urine Color Yellow Urine Clarity Clear Urine pH 5.0 Ur Specific Plover 1.015 Urine Protein 100 H Urine Glucose (UA) Normal Urine Ketones Negative Urine Occult Blood 10 H Urine Nitrite Negative Urine Bilirubin Negative Urine Urobilinogen Normal Ur Leukocyte Esterase Negative Urine RBC 0-5 SEEN Urine WBC 0-5 SEEN Ur Squamous Epith Cells 0 SEEN Urine Bacteria RARE Hyaline Casts 0-5 SEEN Urine Mucus RARE ABG Data Attestation: I personally reviewed and interpreted this ABG as follows: Interpretation: ABG reveals increased AA gradient. pH is 7.41, bicarb 24, total CO2 25, base excess -1, saturation 94% on 5 L by nasal cannula. pCO2 is normal at 38.1 and PO2 is 71. ABG results: ABG 05/31/25 23:22 Specimen Type ART Sample Site R Brach pH 7.41 Bicarbonate Actual 24.0 Total CO2 25 Base Excess -1 O2 Saturation 94 L O2 % 5.0 ABG pCO2 38.1 ABG pO2 71 L Pavel Test Positive O2 Delivery Device Cannula Vent Mode Not entered Radiography Chest X-Ray - ED: 2 View and Read by ED Physician (Return reviewed interpreted by me at 2250. There is cardiomegaly. He has sternotomy wires noted. She has had a valve replacement. There is no infiltrate, effusion, pneumothorax or evidence of CHF. His film was rotated which makes difficult to assess the hilumfor any obvious abnormality. [place]) Diagnostic Testing: Clinical Impression(s) from Imaging Studies Chest X-Ray 05/31/25 22:37 IMPRESSION: CARDIOMEGALY. NO ACUTE FINDINGS. Reading Location: [facility] EKG Initial EKG: Attestation: I personally reviewed and interpreted this EKG as follows: Interpretation: Atrial Fibrillation (Atrial fibrillation with a rate of 60. OR interval not applicable. QRS duration 58 ms. There is evidence of leftbundle branch block. QT duration is 484 ms. Hasty is normal) Treatment and Re-Evaluation :: Patient and family were informed of results. Patient was discharged home. Patient's blood pressure did improve. Comments:: Patient and daughter state that he does not drink alcohol. He has not had a workup for folate or vitamin B-12 deficiency, pernicious anemia workup. Discharge Plan Triage Chief Complaint: Confusion ED Provider: Duc Vicente Dx/Rx/DC Orders Clinical Impression: Change in level of consciousness, Left bundle branch block, Essential (primary)hypertension, Hyperlipemia, Atrial fibrillation, CKD (chronic kidney disease) stage 4, GFR 15-29 ml/min, Cardiomegaly, Bradycardia, Chronic hypoxic respiratory failure Instructions: ED ALOC Prescriptions: No Action famotidine 20 mg tablet 20 mg PO DAILY olanzapine 2.5 mg tablet 2.5 mg PO QHS Eliquis 2.5 mg tablet 2.5 mg PO BID nitroglycerin [Nitrostat] 0.4 mg tablet, sublingual 0.4 mg sublingual Q5-15M PRN (Reason: chest pain) Qty: 25 3RF Rx Instructions: do not exceed 3 doses per episode aspirin 81 MG tablet,delayed release (DR/EC) 81 mg PO DAILY Patient Comments: multivitamin 1 EACH tablet 1 ea PO DAILY insulin regular human 100 UNIT/ML solution 10 unit SC BID Patient Comments: afternoon and night cholecalciferol (vitamin D3) 1,000 UNIT tablet 25 mcg PO DAILY sertraline 25 MG tablet 25 mg PO DAILY calcitriol 0.25 mcg capsule 0.5 mcg PO MOWEFR allopurinol 300 mg tablet 300 mg PO DAILY Daily Fiber (psyllium-aspart) 3 gram Powder In Packet 1 packet PO BID Qty: 0 0RF potassium chloride 20 mEq tablet extended release 20 meq PO DAILY Qty: 1 0RF menthol-zinc oxide [Calmoseptine] 0.44-20.6 % ointment 1 applic topical BID nystatin [Nystop] 100,000 unit/gram powder 1 applic topical BID levetiracetam 500 mg tablet 500 mg PO BID insulin NPH isoph U-100 human 100 unit/mL suspension 10 unit SC BID isosorbide mononitrate 30 mg tablet extended release 24 hr 30 mg PO DAILY Qty: 90 4RF amlodipine 2.5 mg tablet 2.5 mg PO DAILY Qty: 90 3RF furosemide 40 mg tablet 40 mg PO QDAY Qty: 90 3RF Primary Care Provider: Rios Downey Referrals: Rios Downey DO [Primary Care Provider] - 3-5 Days Print Language: Croatian Disposition Disposition: Home, Self Care What to do if you have Problems For any increased pain, shortness of breath, bleeding, nausea or vomiting, chestpain, or any unexpected problems, contact your Primary Care Provider. Call [facility] ([phone]) or report to the closest Emergency Room. Call 911 if necessary. 06/01/25 0031 <Electronically signed by Duc Vicente MD> Cosigner Signature (if applicable): CC: Dr. 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 March 14, 2025 2:55pm Chronic respiratory failure chronic March 14, 2025 2:55pm Obstructive sleep apnea chronic A pril 2024 2:55pm 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 Rios Downey DO Status:ADM IN Location: [place] [id number]- [id number] Providers Date of Admission: 09/16/23 Primary Care Physician: Dr. Rios Downey, DO Consultations 09/20/23 11:34 Consult: Scout / Pulmonary Medicine Routine Consulting Provider: [facility] Reason for Consult: Continued elevated O2 requirement [...] unit/mL injection solution 12 unit subcut BID [id number]/16 cholecalciferol (vitamin D3) 25 mcg (1,000 unit) [...] for dementia who now re-presents to [facility] ED on 09/16/23 with history of discharge from SNF today specifically [facility] with reportedly transition to home and [...] want to send him back to a usp as she thinks that the usp made his condition worse. I discussed with [...] to a determination that he was incompetent howeverjonna feels that he has regained his confidence [...] (Auto) 68.7, Lymph % (Auto) 18.8 L, Blount % (Auto) 8.1, Eos % (Auto) 3.7, [...] Peters; Otto Jerry; Tal Ashraf; Gosia Saenz DIRECTOR CARDIOLOGY Instructions Additional Instructions / Restrictions: Follow-up your [...] Health Service Charges/Coding Visit Charges Inpatient E&M: 22802 Disch Hosp >30min Procedures Hospitalists Procedures: 66395 Advncd Care Plan 30 Min 09/22/23 142 <Electronically signed by Eladio Lucas MD> Cosigner Signature (if applicable): CC: Dr. Eladio Lucas MD; Dr. Rios Downey DO~ Signed [facility] Work Phone: 1(446) 853-339710-26-2023 Progress note Author Yaakov Love [facility] September 22, 2023 1:57pm Note Date/Time September 22, 2023 9 :27am [facility] Medical Records Department [address] [place] [address] Progress Note - Scout 09/22/23923 MR#: [id number] Acct: [id number] Name: JODIE CARDENAS Rep #:[id number] : 1940 83 From: Yaakov Love MD PCP: Dr. Rios Downey DO Status:ADM [facility] Assessment & Plan Assessment/Plan (1) Acute [...] (Auto) 68.7, Lymph % (Auto) 18.8 L, Blount % (Auto) 8.1, Eos % (Auto) 3.7, [...] grossly normal Charges/Coding Visit Charges Inpatient E&M: 18409 Subs Hosp L2 09/22/23 1357 <Electronically signed by Yaakov Love MD> Cosigner Signature (if applicable): CC: ~ Signed [facility] Work Phone: 1(950) 460-599110-26-2023 Discharge summary Author Eladio Lucas [facility] September 22, 2023 1:18pm Note Date/Time September 22, 2023 1 :12pm [facility] Medical Records Department [facility] [place] [address] Instructions for Home/Discharge Instructions 09/22/23 1311 MR#: [id number] Acct: [id number] Name: JODIE CARDENAS Rep #:[id number] : 1940 83 From: Eladio ramirez MD [...] Peters; Otto Jerry; Tal Ashraf; Gosia Saenz DIRECTOR CARDIOLOGY Instructions Additional Instructions / Restrictions: Follow-up your [...] can be placed): Home Health Service 09/22/23 1318<Electronically signed by Eladio Lucas MD>Eladio Lucas MD CC: DIRECTOR CARDIOLOGYGianfranco Saenz; Dr. Aleksander Hilliard DO; Dr. Patricia Alcantara MD; Dr. Yaakov Love MD; Dr. Josh Cline DO; Dr. Michelle Peters MD; Dr. Otto Jerry MD; Dr. Woody Brunson DO; Dr. Rios Downey DO; Dr. Tal Ashraf MD ~ Signed [facility] Work Phone: [phone]) 657-128910-25-2023 Progress note Author Yaakov Love [facility] September 21, 2023 1:05pm Note Date/Time September 21, 2023 8 :03am [facility] Medical Records Department [address] [place] [address] Progress Note - Scout 09/21/23 08 MR#: [id number] Acct: [id number] Name: JODIE CARDENAS Rep #:[id number] : 1940 83 From: Yaakov Love MD PCP: Dr. Rios Downey DO Status:ADM IN Location: [place] [address] Assessment & Plan Assessment/Plan (1) Acute exacerbation [...] grossly normal Charges/Coding Visit Charges Inpatient E&M: 21599 Subs Hosp L2 09/21/23 1305 <Electronically signed by Yaakov Love MD> Cosigner Signature (if applicable): CC: ~ Signed [facility] Work Phone: 1(716) 841-907610-25-2023 Progress note Author Eladio Lucas [facility] September 21, 2023 11:40am Note Date/Time September 21, 2023 1 1:34am [facility] Medical Records Department [address] [place] [address] Progress Note - Hospitalist 09/21/23 1131 MR#: [id number] Acct: [id number] Name: JODIE CARDENAS Rep #:[id number] : 1940 83 From: Eladio ramirez MD PCP: Dr. Rios Downey, DO Status:ADM IN Location: [place] [address] Subjective Subjective Doing well, no issues overnight [...] DVT: Eliquis Charges/Coding Visit Charges Inpatient E&M: 77256 Subs Hosp L2 09/21/23 1140 <Electronically signed by Eladio Lucas MD> Cosigner Signature (if applicable): CC: ~ Signed [facility] Work Phone: 1(731) 715-575210-24-2023 Consult note Author Yaakov Love [facility] September 20, 2023 3:26pm Note Date/Time September 20, 2023 3 :26pm [facility] Medical Records Department [address] [place] [address] Consultation - Scout 09/20/23 1512 MR#: [id number] Acct: [id number] Name: JODIE CARDENAS Rep #:[id number] : 1940 83 From: Yaakov Love MD PCP: Dr. Rios Downey, DO Status:ADM IN Location: [place] [id number]- 1 Assessment & Plan Assessment/Plan (1) Acute [...] pulmonary hypertension. Patient also noted to be epimyogxxodku42 pounds above dry weight. Agree with diuretics [...] medical history listed below, who presented to [facility] on 09/16/2023 secondary to a hypoxic episode. Patient reportedly was admitted at [facility] previously and transferred to a group home center secondary to rehab. Patient reportedly was [...] be 22. Patient's BNP at that time [id number] with a troponin of 41. Chest x-ray [...] psychiatric and hematologic system unless stated above. [facility] Medical History Anemia Atherosclerosis of coronary artery bypass graft without angina pectoris Atherosclerosis of coronary artery of belkofski heart without angina pectoris Chronic combined systolic [...] unit/mL injection solution 12 unit subcut BID [id number]/27/16 [History Last Taken 07/02/23] cholecalciferol (vitamin D3) [...] 179 H Charges/Coding Visit Charges Inpatient E&M: 88907 Init Hosp L3 09/20/23 1526 <Electronically signed by Yaakov Love MD> Cosigner Signature (if applicable): CC: IAN Saenz; Dr. Aleksander Hilliard DO; Dr. Patricia Alcantara MD; Dr. Yaakov Love MD; Dr. Josh Cline DO; Dr. Michelle Peters MD; Dr. Otto Jerry MD; Dr. Woody Brunson DO; Dr. Rios Downey DO; Dr. Tal Ashraf MD~ Signed [facility] Work Phone: 1(661) 836-439710-24-2023 Progress note Author Eladio Lucas [facility] September 20, 2023 1:43pm Note Date/Time September 20, 2023 1 :43pm [facility] Medical Records Department [address] [place] [address] Progress Note - Hospitalist 09/20/23 1340 MR#: [id number] Acct: [id number] Name: JODIE CARDENAS Rep #:[id number] : 1940 83 From: Eladio ramirez MD PCP: Dr. Rios Downey, DO Status:ADM IN Location: [facility] A[facility]- 1 Subjective Subjective Doing well, no issues overnight. [...] DVT: Eliquis Charges/Coding Visit Charges Inpatient E&M: 34270 Subs Hosp L2 09/20/23 1343 <Electronically signed by Eladio Lucas MD> Cosigner Signature (if applicable): CC: ~ Signed [facility] Work Phone: 1(742) 647-675410-23-2023 Progress note Author Eladio Lucas [facility] September 19, 2023 1:41pm Note Date/Time September 19, 2023 1 :34pm [facility] Medical Records Department [address] [place] [address] [place] [address] Progress Note - Hospitalist 09/19/23 1320 MR#: [id number] Acct: [id number] Name: JODIE CARDENAS Rep #:[id number] : 1940 83 From: Eladio ramirez MD PCP: Dr. Rios Downey, DO Status:ADM IN Location: [place] [address] Subjective Subjective Doing well, feels a bit [...] DVT: Eliquis Charges/Coding Visit Charges Inpatient E&M: 87736 Subs Hosp L2 09/19/23 1341 <Electronically signed by Eladio Lucas MD> Cosigner Signature (if applicable): CC: ~ Signed [facility] Work Phone: 1(157) 736-946210-22-2023 Progress note Author Aleksander Hilliard [facility] September 18, 2023 2:18pm Note Date/Time September 18, 2023 2 :18pm [facility] Medical Records Department [address] [place] [address] Progress Note - Hospitalist 09/18/23 1400 MR#: [id number] Acct: [id number] Name: JODIE CARDENAS Rep #:[id number] : 1940 83 From: Aleksander camargo DO PCP: Dr. Rios Downey, DO Status:ADM IN Location: [place] [address] Reason for Visit Reason for Visit: Diagnoses [...] for CVA rule out who presented to [facility] ED on 09/16/2023 with worsening shortness of [...] 35 minutes. Charges/Coding Visit Charges Inpatient E&M: 23618 Subs Hosp L2 09/18/23 1418 <Electronically signed by Aleksander Hilliard DO> Cosigner Signature (if applicable): CC: ~ Signed [facility] Work Phone: 1(410) 389-262210-21-2023 Progress note Author Aleksander [facility] September 17, 2023 3:42pm Note Date/Time September 17, 2023 3 :38pm [facility] Medical Records Department [address] [place] [address] Progress Note - Hospitalist 09/17/23 1527 MR#: [id number] Acct: [id number] Name: JODIE CARDENAS Rep #:[id number] : 1940 83 From: Aleksander camargo DO PCP: Dr. Rios Downey, Status:ADM IN Location: [place] [id number]- 1 Reason for Visit Reason for Visit: [...] % (Auto) 68.1, Lymph % (Auto) 19.0, Blount % (Auto) 8.1, Eos % (Auto) 3.7, [...] 70.5 H, Lymph % (Auto) 16.9 L, Blount % (Auto) 7.1, Eos % (Auto) 4.6, [...] for CVA rule out who presented to [facility] ED on 09/16/2023 with worsening shortness of [...] 35 minutes. Charges/Coding Visit Charges Inpatient E&M: 33787 Subs Hosp L2 09/17/23 1547 <Electronically signed by Aleksander Hilliard DO> Cosigner Signature (if applicable): CC: ~ Signed [facility] Work Phone: 1(515) 312-733710-20-2023 Discharge summary Author Cesar Medina [facility] September 16, 2023 6:42pm Note Date/Time September 16, 2023 6 :42pm [facility] Medical Records Department [address] [place] [address] Emergency Department Summary 09/16/23 MR#: [id number] Acct: [id number] Name: JODIE CARDENAS Rep #:[id number] : 1940 83 From: Cesar Medina DO PCP: Dr. Rios Downey, Status:REG ER Location: ED HPI History of Present Illness Chief Complaint: Shortness of Breath Narrative Narrative: 83-year-old male with history of CHF, A-fib, CKD, CAD, diabetes, hypertension, sleep apnea presenting with hypoxic episode. Patient was recently inpatient at [facility] for what sounds like about a month. He was discharged to a group home facility where he just left today. His [...] [facility] that [facility] he was huffing and puffing when he was walking but not like today. He states that they change his Lasix to torsemide while he was at the group home facility he is not sure why they did this. They also put him on potassium. [facility] Medical History Anemia Atherosclerosis of coronary artery bypass graft without angina pectoris Atherosclerosis of coronary artery of belkofski heart without angina pectoris Chronic combined systolic [...] unit/mL injection solution 12 unit subcut BID DJDTXBQD10/27/16 [History Last Taken 07/02/23] cholecalciferol (vitamin D3) [...] % (Auto) 68.1 Lymph % (Auto) 19.0 Blount % (Auto) 8.1 Eos % (Auto) 3.7 [...] 17:04 EDT Reading Location ID and State: [facility] / [place] Tel , Service support , Discharge Plan [...] problems, contact your Primary Care Provider. Call [facility] ([phone]) or report to the closest Emergency Room. Call 911 if necessary. 09/16/23 1842 <Electronically signed by Cesar Medina DO> Cosigner Signature (if applicable): CC: Dr. Rios Downey DO ~ Signed [facility] Work Phone: 1(221) 730-323010-20-2023 History and physical note Author Patricia Alcantara [facility] September 16, 2023 6:41pm Note Date/Time September 16, 2023 6 :17pm [facility] Medical Records Department [address] [place] [address] H&P Exam - Hospitalist 09/16/23 180 MR#: [id number] Acct: [id number] Name: JODIE CARDENAS Rep #:[id number] : 1940 83 From: Patricia Alcantara MD [...] for dementia who now re-presents to the [facility] ED on 09/16/23 with history of discharge from SNF today specifically [facility] with reportedly transition to home and [...] atrial fibrillation without acute evidence of ischemia. [facility] Medical History Anemia Atherosclerosis of coronary artery bypass graft without angina pectoris Atherosclerosis of coronary artery of belkofski heart without angina pectoris Chronic combined systolic [...] unit/mL injection solution 12 unit subcut BID GOLQRVEV79/27/16 [History Last Taken 07/02/23] cholecalciferol (vitamin D3) [...] staged ecchymoses especially to the extremities, anterior cifeuntes abrasions, very staged ecchymotic changes. HEENT: AT/NC, [...] % (Auto) 68.1, Lymph % (Auto) 19.0, Blount % (Auto) 8.1, Eos % (Auto) 3.7, [...] 17:04 EDT Reading Location ID and State: [address] [place] [address] Tel , Service support , Assessment & Plan Assessment/Plan (1) Acute [...] for dementia who now re-presents to the [facility] ED on 09/16/23 with history of discharge from SNF today specifically [facility] with reportedly transition to home and [...] not repeat. Will place neck Dionna wraps. PT/OT/rn case management consultation for discharge planning. To be cautious [...] intubation status. Charges/Coding Visit Charges Inpatient E&M: 66529 Init Hosp L3 09/16/23 184 <Electronically signed by Patricia Alcantara MD> Cosigner Signature (if applicable): CC: Dr. Patricia Alcantara MD; Dr. Rios Downey, ~ Signed [facility] Work Phone: 1(110) 686-950810-20-2023 History and physical note Author [facility] September 16, 2023 6:41pm Note Date/Time September 16, 2023 6 :17pm [facility] Medical Records Department [address] [place] [address] H&P Exam - Hospitalist 09/16/23 1809 MR#: [id number] Acct: [id number] Name: JODIE CARDENAS Rep #:[id number] : 1940 83 From: Patricia Alcantara MD [...] for dementia who now re-presents to the [facility] ED on 09/16/23 with history of discharge from SNF today specifically [facility] with reportedly transition to home and [...] atrial fibrillation without acute evidence of ischemia. [facility] Medical History Anemia Atherosclerosis of coronary artery bypass graft without angina pectoris Atherosclerosis of coronary artery of belkofski heart without angina pectoris Chronic combined systolic [...] unit/mL injection solution 12 unit subcut BID YOBFCXDT96/27/16 [History Last Taken 07/02/23] cholecalciferol (vitamin D3) [...] % (Auto) 68.1, Lymph % (Auto) 19.0, Blount % (Auto) 8.1, Eos % (Auto) 3.7, [...] for dementia who now re-presents to the [facility] ED on 09/16/23 with history of discharge from SNF today specifically [facility] with reportedly transition to home and [...] not repeat. Will place neck Dionna wraps. PT/OT/rn case management consultation for discharge planning. To be cautious [...] intubation status. Charges/Coding Visit Charges Inpatient E&M: 11150 Init Hosp L3 09/16/23 1841 <Electronically signed by Patricia Alcantara MD> Cosigner Signature (if applicable): CC: Dr. Patricia Alcantara MD; Dr. Rios Downey, DO~ Signed [facility] Work Phone: 1(956) 564-422610-20-2023 Discharge summary Author Cesar Medina [facility] September 16, 2023 6:42pm Note Date/Time September 16, 2023 6 :42pm [facility] Medical Records Department [address] [facility] [place] [address] Emergency Department Summary 09/16/23 MR#: [id number] Acct: [id number] Name: JODIE CARDENAS Rep #:[id number] : 1940 83 From: Cesar Medina DO PCP: Dr. Rios Downey, Status:REG ER Location: ED HPI History of Present Illness Chief Complaint: Shortness of Breath Narrative Narrative: 83-year-old male with history of CHF, A-fib, CKD, CAD, diabetes, hypertension, sleep apnea presenting with hypoxic episode. Patient was recently inpatient at [facility] for what sounds like about a month. He was discharged to a group home facility where he just left today. His [...] [facility] that [facility] he was huffing and puffing when he was walking but not like today. He states that they change his Lasix to torsemide while he was at the group home facility he is not sure why they did this. They also put him on potassium. [facility] Medical History Anemia Atherosclerosis of coronary artery bypass graft without angina pectoris Atherosclerosis of coronary artery of belkofski heart without angina pectoris Chronic combined systolic [...] unit/mL injection solution 12 unit subcut BID YHQMDBLF04/27/16 [History Last Taken 07/02/23] cholecalciferol (vitamin D3) [...] % (Auto) 68.1 Lymph % (Auto) 19.0 Blount % (Auto) 8.1 Eos % (Auto) 3.7 [...] 17:04 EDT Reading Location ID and State: [address] [place] [address] Tel , Service support , Discharge Plan [...] your Primary Care Provider. Call [facility] ([phone]) or report to the closest Emergency Room. Call 911 if necessary. 09/16/231841 <Electronically signed by Cesar Medina DO> Cosigner Signature (if applicable): CC: Dr. Rios Downey DO ~ Signed [facility] Work Phone: 1(288) 727-295309-25-2023 Discharge summary Author Mikey Macias [facility] August 22, 2023 12:17pm Note Date/Time August 22, 2023 12:17pm [facility] Medical Records Department [address] [place] [address] Discharge Summary 08/22/23 1216 MR#: [id number] Acct: [id number] Name: HAMZAHJODIE MCKEE Lorna Rep #:[id number] : 1940 83 From: Mikey Macias DO PCP: Dr. Rios Downey DO Status:ADM IN Location: [place] [id number]- [id number] Providers Date of Admission: 08/18/23 Primary Care Physician: Dr. Rios Downey, DO Reason For Visit: LEFT SIDED FACIAL [...] malaise Plan: Patient to go back to [facility]. Plan Chronic conditions * Seizure disorder?Patient [...] unit/mL injection solution 25 unit subcut BID WYCRLNTT43/27/16 cholecalciferol (vitamin D3) 25 mcg (1,000 unit) [...] 75.8 H, Lymph % (Auto) 16.5 L, Blount % (Auto) 5.6, Eos % (Auto) 1.4, [...] in before D/C Order can be placed): [facility] Facility Charges/Coding Visit Charges Inpatient E&M: 35453 Disch Hosp 08/22/231216 <Electronically signed by Mikey Macias DO> Cosigner Signature (if applicable): CC: Dr. Mikey Macias DO; Dr. Rios Downey DO~ Signed [facility] Work Phone: 1([phone]) [phone] Discharge summary Author Mikey Macias [facility] August 22, 2023 12:16pm Note Date/Time August 22, 2023 12:12pm [facility] Medical Records Department [address] [place] [address] Transfer to [facility] MR#: [id number] Acct: [id number] Name: JODIE CARDENAS Rep #:[id number] : 1940 83 From: Mikey Macias DO PCP: Dr. Rios Downey DO Status:ADM IN Certification of patient admission REQUIRED AT TIME OF ADMISSION. I CERTIFY THAT POST-HOSPITAL F SERVICES ARE REQUIRED TO BE GIVEN ON AN IN-PATIENT BASIS BECAUSE OF THE ABOVE NAMED PATIENT'S NEED FOR PRISON CARE ON A CONTINUING BASIS FOR THE CONDITION(S) FOR WHICH HE/SHE WAS RECEIVING IN-PATIENT HOSPITAL SERVICES PRIOR TO HIS/HER TRANSFER TO THE [facility]. 08/22/23 1216<Electronically signed by Mikey Macias DO> Diet Diet Order/Speech Therapy: 08/19/23 13:25 ADA [Diet: Cardiac: Calorie-Controlled] Food consistency:: Pureed Liquid Consistency:: Casa/Mildly Thick Is pt able to select menu?: [...] malaise Plan: Patient to go back to [facility]. Plan Chronic conditions * Seizure disorder?Patient [...] able, rec CRISTINA to liberal CHO Control 1999 jade/ No Addes slat As medically able, [...] in before D/C Order can be placed): [facility] Facility 08/22/23 1216 <Electronically signed by Mikey Macias DO> Cosigner Signature (if applicable): CC: Dr. Patricia Alcantara MD; Dr. James Camarillo MD; Dr. Rios Downey DO ~ [facility] Work Phone: 1(745) 818-428609-25-2023 Progress note Author Mikey Macias [facility] August 22, 2023 12:11pm Note Date/Time August 22, 2023 10:00am [facility] Medical Records Department [address] [place] [address] Progress Note - Hospitalist 08/22/23 0956 MR#: [id number] Acct: [id number] Name: JODIE CARDENAS Rep #:[id number] : 1940 83 From: Mikey Macias DO PCP: Dr. Rios Downey DO Status:ADM IN Location: [place] [address] Reason for Visit Reason for Visit: Diagnoses [...] 75.8 H, Lymph % (Auto) 16.5 L, Blount % (Auto) 5.6, Eos % (Auto) 1.4, [...] Debility: PLAN: Patient to go back to [facility]. PLAN: Plan Chronic conditions * Seizure [...] Cosigner Signature (if applicable): CC: ~ Signed [facility] Work Phone: 1(361) 917-702009-24-2023 Progress note Author James Camarillo [facility] August 21, 2023 11:49am Note Date/Time August 21, 2023 8:45am [facility] Medical Records Department [address] [place] [address] Progress Note - Hospitalist 08/21/23 0844 MR#: [id number] Acct: [id number] Name: JODIE CARDENAS Rep #:[id number] : 1940 83 From: James Camarillo MD PCP: Dr. Rios Downey, Status:ADM IN Location: [place] [id number]- 1 Reason for Visit Reason for Visit: Diagnoses Disorientation, unspecified (08/18/23) Subjective Subjective Patient seen remains stable with no change in condition plan is for patient to be transferred to group home facility pending insurance approval/precertification Objective Data Objective [...] 74.3 H, Lymph % (Auto) 17.4 L, Blount % (Auto) 6.0, Eos % (Auto) 1.4, [...] Requested for PT OT eval and social work associate to assist with discharge planning ? 08/20/2023; awaiting insurance approval prior to transfer to group home facility ? 08/21/2023; Patient seen remains stable with no change in condition plan is forpatient to be transferred to group home facility pending insurance approval/precertification 3. Seizure disorder [...] documentation, 35minutes Charges/Coding Visit Charges Inpatient E&M: 77086 Subs Hosp L2 08/21/23 1149 <Electronically signed by James Camarillo MD> Cosigner Signature (if applicable): CC: ~ Signed [facility] Work Phone: [phone]) 160-742309-23-2023 Progress note Author James Camarillo [facility] August 20, 2023 11:15am Note Date/Time August 20, 2023 8:35am [facility] Medical Records Department [address] [place] [address] Progress Note - Hospitalist 08/20/23834 MR#: [id number] Acct: [id number] Name: JODIE CARDENAS Rep #:[id number] : 1940 83 From: James Camarillo MD PCP: Dr. Rios Downey, DO Status:ADM IN Location: [place] [id number]- 1 Reason for Visit Reason for Visit: Diagnoses Disorientation, unspecified (08/18/23) Subjective Subjective Patient seen appears to be back to [facility] Objective Data Objective Data [...] Requested for PT OT eval and social work associate to assist with discharge planning ? 08/20/2023; awaiting insurance approval prior to transfer to group home facility 3. Seizure disorder ?Patient is on [...] documentation, 35minutes Charges/Coding Visit Charges Inpatient E&M: 98740 Subs Hosp L2 08/20/23 1115 <Electronically signed by James Camarillo MD> Cosigner Signature (if applicable): CC: ~ Signed [facility] Work Phone: 1(544) 743-712609-22-2023 Progress [facility] 12:57pm Note Date/Time August 19, 2023 9:42am [facility] Medical Records Department [address] [facility] [place] [address] Progress Note - Hospitalist 08/19/23 09 MR#: [id number] Acct: [id number] Name: JODIE CARDENAS Rep #:[id number] : 1940 83 From: James Camarillo MD PCP: Dr. Rios Downey, DO Status:ADM IN Location: [place] [address] Reason for Visit Reason for Visit: Diagnoses [...] 73.4 H, Lymph % (Auto) 17.6 L, Blount % (Auto) 6.4, Eos % (Auto) 1.8, [...] % (Auto) 67.7, Lymph % (Auto) 22.6, Blount % (Auto) 6.6, Eos % (Auto) 2.4, [...] Requested for PT OT eval and social work associate to assist with discharge planning 3. Seizure [...] documentation, 55minutes Charges/Coding Visit Charges Inpatient E&M: 34953 Subs Hosp L3 08/19/23 1257 <Electronically signed by James Camarillo MD> Cosigner Signature (if applicable): CC: ~ Signed [facility] Work Phone: 1(642) 211-855409-21-2023 History and physical note Author Patricia Alcantara [facility] August 18, 2023 9:21pm Note Date/Time August 18, 2023 2:36pm [facility] Medical Records Department [address] [place] [address] H&P Exam - Hospitalist 08/18/23 1435 MR#: [id number] Acct: [id number] Name: JODIE CARDENAS Rep #:[id number] : 1940 83 From: Patricia Alcantara MD PCP: Dr. Rios Downey, DO Status:ADM IN Location: [place] [id number]- 1 HPI - General General Date of [...] TCU following who now represents to the [facility] ED on 08/18/23 with history of onset [...] the ED patient administered maintenance IV fluids. 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 of coronary artery of belkofski heart without angina pectoris Atrial fibrillation with [...] unit/mL injection solution 25 unit subcut BID UCBLRJAX44/27/16 [History Last Taken 07/02/23] cholecalciferol (vitamin D3) [...] unable to have patient perform finger-nose or [id number], equivocal Babinski, patient is definitely having interactive [...] 73.4 H, Lymph % (Auto) 17.6 L, Blount % (Auto) 6.4, Eos % (Auto) 1.8, [...] TCU following who now represents to the [facility] ED on 08/18/23 with history of onset [...] concern for oral intake will transition to OR ASA, holding oral regimen. Maintain on fall [...] intubation status. Charges/Coding Visit Charges Inpatient E&M: 51665 Init Hosp L3 08/18/232120 <Electronically signed by Patricia Alcantara MD> Cosigner Signature (if applicable): CC: Dr. Patricia Alcantara MD; Dr. Rios Downey, DO~ Signed [facility] Work Phone: 1(871) 272-127709-21-2023 Discharge summary [facility] August 18, 2023 6:32pm Note Date/Time August 18, 2023 11:20am [facility] Medical Records Department [address] [place] [address] Emergency Department Summary 08/18/23 MR#: [id number] Acct: [id number] Name: JODIE CARDENAS Rep #:[id number] : 1940 83 From: Farhan Encinas PCP: Dr. Rios Downey, DO Status:ADM IN Location: [address] History of Present Illness Chief Complaint: Stroke Alert [facility] Medical History (Updated 08/18/23 @ 17:56 by Audra Wilhelm) Acute exacerbation of CHF (congestive heart failure) Acute on chronic diastolic (congestive) heart failure Acute respiratory failure with hypoxia Anemia Atherosclerosis of coronary artery bypass graft without angina pectoris Atherosclerosis of coronary artery of belkofski heart without angina pectoris Atrial fibrillation with [...] unit/mL injection solution 25 unit subcut BID XOBAPAEC41/27/16 [History Last Taken 07/02/23] cholecalciferol (vitamin D3) [...] History (Updated 07/11/23 @ 00:01 by Background Dafloyd) H/O aortic valve replacement (02/24/16) H/O coronary [...] patient's nurse Consults: Stroke neurology, internal medicine [facility] Narrative: Patient was initially hemodynamically stable, [...] 73.4 H Lymph % (Auto) 17.6 L Blount % (Auto) 6.4 Eos % (Auto) 1.8 [...] Discharge Plan Disposition Disposition: Acute Care Hospital [facility] Discharge Date/Time: 08/18/23 17:38 What to do if you have Problems For any increased pain, shortness of breath, bleeding, nausea or vomiting, chest pain, or any unexpected problems, contact your Primary Care Provider. Call [facility] ([phone]) or report to the closest Emergency Room. Call 911 if necessary. 08/18/23 1832 <Electronically signed by Farhan Bonds DO> Cosigner Signature (if applicable): CC: Dr. Rios Downey, DO ~ Signed [facility] Work Phone: 1(841) 540-458609-16-2023 Progress note Author Carrie Bonner [facility] August 13, 2023 10:00am Note Date/Time August 08, 2023 11:01am [facility] Medical Records Department [address] [place] [address] Progress Note - Nephrology 08/08/23 1059 MR#: [id number] Acct: [id number] Name: JODIE CARDENAS Rep #:[id number] : 1940 83 From: Saumya andrews DIRECTOR CARDIOLOGY-C PCP: Dr. Rios Downey DO Status:ADM IN Location: [place] [address] Subjective Subjective Resting in bed. No complaints. [...] 07/27/23 15:44 BRANDEN (Rec: 07/27/23 15:44 BRANDEN [id number]) Nutrition Malnutrition Evidence of Malnutrition Exists Yes [...] Cardiac, 2000 jade Controlled - consistency per VICE PRESIDENT OF FINANCE Will monitor for changes in res nutritional [...] will need hospital follow-up made with his development consultant, Dr. Guille wyatt 1-2 months. 08/08/23 1101 <Electronically signed by Saumya SOSA> Cosigner Signature (if applicable): 08/13/23 1000 <Electronically signed by Carrie Bonner MD> CC: ~ Signed [facility] Work Phone: 1(424) 785-855709-05-2023 Progress note Author Jeremy Magallanes [facility] August 02, 2023 8:05am Note Date/Time August 02, 2023 8:05am [facility] Medical Records Department [address] [place] [address] Progress Note - [facility] 08/02/23 0759 MR#: [id number] Acct: [id number] Name: JODIE CARDENAS Rep #:[id number] : 1940 83 From: Jeremy Magallanes MD PCP: Dr. Rios Downey, DO Status:ADM IN Location: [place] [address] Subjective Subjective Resident seen, examined. 1 week [...] 07/27/23 15:44 SLA (Rec: 07/27/23 15:44 SLA [id number]) Nutrition Malnutrition Evidence of Malnutrition Exists Yes [...] Cardiac, 2000 jade Controlled - consistency per VICE PRESIDENT OF FINANCE Will monitor for changes in res nutritional [...] 25mg daily, Zyprexa 2.5mg qhs, stable chronic penitentiary use, GDR not recommended. * Vitamin D [...] close relative (spouse, child, parent, sibling)?: Yes 08/02/23804 <Electronically signed by Jeremy Magallanes MD> Cosigner Signature (if applicable): CC: ~ Signed [facility] Work Phone: [phone]) [phone] Progress note Author Clay Berry [facility] July 25, 2023 11:36am Note Date/Time July 25, 2023 10 :25am [facility] Medical Records Department [address] [place] [address] Progress Note - Nephrology 07/25/23 1021 MR#: [id number] Acct: [id number] Name: JODIE CARDENAS Rep #:[id number] : 1940 83 From: Saumya andrews NP-C PCP: Dr. Rios Downey, DO Status:ADM IN Location: [place] [address] Subjective Subjective Following for CKD Sitting in [...] (Auto) 69.0, Lymph % (Auto) 18.2 L, Blount % (Auto) 7.8, Eos % (Auto) 4.1, [...] will need hospital follow-up made with his development consultant, Dr. Han inasalome 1-2 months. 07/25/23 1025 <Electronically signed by Saumya SOSA> Cosigner Signature (if applicable): 07/25/23 1136 <Electronically signed by Clay Berry MD> CC: ~ Signed [facility] Work Phone: 1(269) 361-243308-26-2023 Consult note Author Carrie Bonner [facility] July 23, 2023 10:57am Note Date/Time July 11, 2023 11 :26am [facility] Medical Records Department [address] [place] [address] Consultation - Nephrology 07/11/23 1116 MR#: [id number] Acct: [id number] Name: JODIE CARDENAS Rep #:[id number] : 1940 83 From: Saumya SOSA PCP: Dr. Rios Downey, DO Status:ADM IN [facility] Assessment & Plan Assessment/Plan (1) CKD (chronic [...] cannot recall when last seen by his development consultant. In reviewing past serum creatinine trends, baseline creatinine ranging around 2.4 to 2.7 mg/dL. Patient denies any recent nausea, vomiting or diarrhea. Reports has good appetite. No recent overnight events. 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 of coronary artery of belkofski heart without angina pectoris Atrial fibrillation with [...] unit/mL injection solution 25 unit subcut BID [id number]/27/16 [History Last Taken 07/02/23] cholecalciferol (vitamin D3) [...] 76.7 H, Lymph % (Auto) 9.8 L, Blount % (Auto) 9.5, Eos % (Auto) 3.2, [...] Berry MD; Dr. Rios Downey, DO~ Signed [facility] Work Phone: 1(135) 515-856408-26-2023 Progress note Author Carrie Bassettfaith [facility] July 23, 2023 10:57am Note Date/Time July 14, 2023 10 :34am [facility] Medical Records Department [address] [place] [address] Progress Note - Nephrology 07/14/23 1029 MR#: [id number] Acct: [id number] Name: JODIE CARDENAS Rep #:[id number] : 1940 83 From: Saumya SOSA PCP: Dr. Rios Downey, DO Status:ADM IN Location: [place] [address] Subjective Subjective Following for CKD Patient resting [...] by Carrie Bonner MD> CC: ~ Signed [facility] Work Phone: 1(781) 160-583708-26-2023 Progress note Author Carriedeb [facility] July 23, 2023 10:56am Note Date/Time July 19, 2023 2: 40pm [facility] Medical Records Department [address] [place] [address] Progress Note - Nephrology 07/19/23 1437 MR#: [id number] Acct: [id number] Name: JODIE CARDENAS Rep #:[id number] : 1940 83 From: Saumya SOSA PCP: Dr. Rios Downey, DO Status:ADM IN Location: [place] [address]- Subjective Subjective No overnight events. Sitting in [...] by Carrie Bonner MD> CC: ~ Signed [facility] Work Phone: 1(414) 698-139808-23-2023 Procedure [facility] 07-20-2023 History and physical note Author Jeremy Magallanes [facility] July 20, 2023 7:53am Note Date/Time July 03, 2023 8:3 0pm [facility] Medical Records Department [address] [place] [address] History & Physical Exam 07/03/232021 MR#: [id number] Acct: [id number] Name: JODIE CARDENAS Rep #:[id number] : 1940 83 From: Jeremy Magallanes MD PCP: Dr. Rios Downey, DO Status:ADM IN Location: [facility]22-1 HPI - General General Date of Admission: 07/03/23 Date of Service: 07/04/23 Chief Complaint: Here for rehabilitation. HPI Narrative 06/29/2023 JODIE CARDENAS, is a 83 Male who presents to [facility] Emergency Department with stroke alert. 06/29/2023 EKG atrial fibrillation with slow ventricular response, left bundle branch block. Sometimes forgetful sleeping in chair, confused. Acting out of character, intermittent confusion, slurring words. Expressive aphasia, dysarthria, confusion. Symptoms improving, NIH 1, not TPA candidate. 06/29/2023 Admit to [facility]. PT/OT/ST, aspirin, atorvastatin for rule out stroke. [...] strengthening, prior to discharge home with granddaughter. 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 of coronary artery of belkofski heart without angina pectoris Atrial fibrillation with [...] unit/mL injection solution 25 unit subcut BID [id number]/27/16 [History Last Taken 07/02/23] cholecalciferol (vitamin D3) [...] 25mg daily, Zyprexa 2.5mg qhs, stable chronic director long term care use, GDR not recommended. * Hypokalemia - [...] - Rx Doxepin 10mg po qhs prn. 07/20/23 0753<Electronically signed by Jeremy Magallanes MD> Cosigner Signature (if applicable): cc: Dr. Rios Downey DO; Dr. Jeremy Magallanes MD ~* Signed [facility] Work Phone: 1(363) 757-832208-08-2023 Progress note Author Jeremy Elpidio [facility] July 05, 2023 11:19am Note Date/Time July 05, 2023 11: 03am [facility] Medical Records Department [address] [place] [address] Progress Note - Pharmacy 07/05/23 1048 MR#: [id number] Acct: [id number] Name: JODIE CARDENAS Rep #:[id number] : 1940 83 From: Ingrid Rizvi PCP: Dr. Rios Downey DO Status:ADM IN Location: TCU TCU22-1 Documented by User: Ingrid Rizvi 07/05/23 11:15 [...] 18:00 07/05/23 05:04 Apixaban 2.5 Mg Tablet ([facility]) PO 2.5 mg BID AYLIN Administration Atorvastatin [...] by Jeremy Magallanes MD> CC: ~ Signed [facility] Work Phone: 1(300) 485-598908-06-2023 Discharge summary Author Woody Brunson [facility] July 03, 2023 11:01am Note Date/Time July 03, 2023 10: 51am [facility] Medical Records Department [address] [place] [address] Transfer to [facility] MR#: [id number] Acct: [id number] Name: JODIE CARDENAS Rep #:[id number] : 1940 83 From: Woody Brunson DO PCP: Dr. Rios Downey, Status:ADM IN Certification of patient admission REQUIRED AT TIME OF ADMISSION. I CERTIFY THAT POST-HOSPITAL ECF SERVICES ARE REQUIRED TO BE GIVEN ON AN IN-PATIENT BASIS BECAUSE OF THE ABOVE NAMED PATIENT'S NEED FOR PRISON CARE ON A CONTINUING BASIS FOR THE [...] Continue diet as ordered - consistency per VICE PRESIDENT OF FINANCE Will order 4 oz glucerna shake tid w/ medpass d/t poor po intake since in hospital Continue to monitor for changes in pt nutritional status and make additional rec as indicated Speech Linguistic Eval Summary: Patient laying in bed, difficult to arouse. Required constant verbal and tactile cueing to participate in conversation w/ VICE PRESIDENT OF FINANCE. Frequently closing eyes, lethargic. Granddaughter present for cognitive-linguistic evaluation. Granddaughter reports patient does have some cognitive impairment as baseline, he does not typically know their address, [place], etc. Granddaughter attributes this to age related decline however, VICE PRESIDENT OF FINANCE suspects dementia at baseline. Granddaughter does live w/ patient. Orientation - Oriented to name, month and date of birthday only. Disoriented to year of , current month, current year and place despite choice array of 2. Patient reporting it is Jul 1964 and he is at [facility]. Unable to recall any personal details. Verbal expression - Very difficult to understand, slurred speech (50% intelligible w/ unknown context). Granddaughter reports worsening dysarthria compared to baseline. Patient does have upper/lower dentures that he sometimes uses when he eats. Auditory comprehension - Difficult to understand task, unable to determine if d/t lethargy or exacerbation of cognitive impairment. VICE PRESIDENT OF FINANCE discontinued cognitive-linguistic assessment d/t lethargy, will continue [...] in before D/C Order can be placed): [facility] 07/03/23 1101 <Electronically signed by Woody Brunson DO> Cosigner Signature (if applicable): CC: Dr. Rigoberto Ashley MD; Dr. Rios Downey DO ~ [facility] Work Phone: 1(273) 450-591008-05-2023 Progress note Author Woody [facility] July 02, 2023 9:59am Note Date/Time July 02, 2023 9:5 6am [facility] Medical Records Department [address] [place] [address] Progress Note - Hospitalist 07/02/23 0954 MR#: [id number] Acct: [id number] Name: JODIE CARDENAS Rep #:[id number] : 1940 83 From: Woody Brunson DO PCP: Dr. Rios Downey DO Status:ADM IN Location: [place] [address] Reason for Visit Reason for Visit: Diagnoses [...] he will need short-term placement in the group home facility for rehab services. #2 type 2 [...] 35 minutes Charges/Coding Visit Charges Inpatient E&M: 22697 Subs Hosp L2 07/02/23 0959 <Electronically signed by Woody Brunson DO> Cosigner Signature (if applicable): CC: ~ Signed [facility] Work Phone: 1(158) 998-317208-04-2023 Progress note Author Woody [facility] July 01, 2023 5:13pm Note Date/Time July 01, 2023 4:5 8pm [facility] Medical Records Department [address] [place] [address] Progress Note - Hospitalist 07/01/23 1655 MR#: [id number] Acct: [id number] Name: JODIE CARDENAS Rep #:[id number] : 1940 83 From: Woody Brunson DO PCP: Dr. Rios Downey, DO Status:ADM IN Location: [place] [id number]- Reason for Visit Reason for Visit: Diagnoses [...] Total 120 / 120 1190 / 1190 195.67 / 1955. Output Total 100 / 100 0 / 0 Balance 1190 / 1190 67 / Lab / Micro Data 07/01/23 05:14 [...] 76.6 H, Lymph % (Auto) 14.4 L, Blount % (Auto) 7.7, Eos % (Auto) 0.6, [...] most likely need temporary placement in a group home facility. #2 type 2 diabetes-blood sugar will [...] 35 minutes Charges/Coding Visit Charges Inpatient E&M: 66918 Subs Hosp L2 07/01/23 1713 <Electronically signed by Woody Brunson DO> Cosigner Signature (if applicable): CC: ~ Signed [facility] Work Phone: 1(126) 163-160008-03-2023 Progress note Author Woody [facility] June 30, 2023 7:55pm Note Date/Time June 30, 2023 6:4 1pm [facility] Medical Records Department [address] [place] [address] Progress Note - Hospitalist 06/30/23 1834 MR#: [id number] Acct: [id number] Name: JODIE CARDENAS Rep #:[id number] : 1940 83 From: Woody Brunson DO PCP: Dr. Rios Downey, Status:ADM IN Location: [place] [address] Reason for Visit Reason for Visit: Diagnoses [...] 72.4 H, Lymph % (Auto) 18.2 L, Blount % (Auto) 7.1, Eos % (Auto) 1.3, [...] L, BUN/Creatinine Ratio 19.3, Glucose 121 H, PsfwnqvsedL5e 5.6, Calcium 9.4, Triglycerides 98, Cholesterol 75, LDL Cholesterol 25, VLDLCholesterol 20, HDL Cholesterol 30 L, TSH 5.37 H 06/30/23 08:25: POC Glucose 129 H 08/03/23 11:59: POC Glucose 116 H 06/30/23 14:51: [...] 35 minutes Charges/Coding Visit Charges Inpatient E&M: 38594 Subs Hosp L2 06/30/231954 <Electronically signed by Woody Brunson DO> Cosigner Signature (if applicable): CC: ~ Signed [facility] Work Phone: 1([phone]) 899-138308-02-2023 Discharge summary Author Angélica Palomo [facility] June 29, 2023 3:48pm Note Date/Time June 29, 2023 2:3 2pm [facility] Medical Records Department [address] [place] [address] Emergency Department Summary 06/29/23 MR#: [id number] Acct: [id number] Name: JODIE CARDENAS Lorna Rep #:[id number] : 1940 83 From: Angélica Encinas PCP: Dr. Rios Downey, DO Status:ADM GUZMAN Location: [place] [address] HPI History of Present Illness Chief Complaint: [...] Stroke alert was called in the field. 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 Call [facility] ([phone]) or report to the closest Emergency Room. Call 911 if necessary. 06/29/23 1548 <Electronically signed by Angélica Palomo DO> Cosigner Signature (if applicable): CC: Dr. Rios Downey, DO ~ Signed [facility] Work Phone: 1(339) 731-698908-02-2023 History and physical note Author Rigoberto Ashley [facility] June 29, 2023 3:09pm Note Date/Time June 29, 2023 2:2 7pm [facility] Medical Records Department [address] [place] [address] H&P Exam - Hospitalist 06/29/23 1424 MR#: [id number] Acct: [id number] Name: JODIE CARDENAS Rep #:[id number] : 1940 83 From: Rigoberto Bustos PCP: Dr. Rios Downey, Status:ADM GUZMAN Location: [place] [address] HPI - General General Date of Admission: [...] and oxygen and BiPAP and chronic A-fib 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 of coronary artery of belkofski heart without angina pectoris Atrial fibrillation with [...] unit/mL injection solution 25 unit subcut BID [id number]/27/16 [History Last Taken 01/29/20] cholecalciferol (vitamin D3) [...] % (Auto) 70.0, Lymph % (Auto) 21.1, Blount % (Auto) 6.4, Eos % (Auto) 1.4, [...] 2022 patient was started on oxygen and [facility] nephrology saw the patient. Patient is on [...] on Eliquis. Charges/Coding Visit Charges Inpatient E&M: 09816 Init Hosp L3 Procedures Hospitalists Procedures: 34862 Advncd Care Plan 30 Min 06/29/23 1509 <Electronically signed by Rigoberto Ashley MD> Cosigner Signature (if applicable): CC: Dr. Rigoberto Ashley MD; Dr. Rios Downey, DO~ Signed [facility] Work Phone: 1(774) 126-900006-17-2023 Note. 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 Hyperlipemia chronic Paroxysmal atrial fibrillation [facility] Work Phone: 1([phone]) 434-777403-29-2016 Evaluation note* Diagnosis Onset Date Resolution Status Obstructive sleep apnea block tester kirby Atherosclerosis of coronary artery of belkofski heart without angina pectoris chronic Essential (primary) hypertension chronic H/O aortic valve replacement February 24, 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 Hyperlipemia chronic Paroxysmal atrial fibrillation [facility] Work Phone: 1(959) 673-643003-29-2016 Evaluation note* Diagnosis Onset Date Resolution Status Atherosclerosis of coronary artery of belkofski heart without angina pectoris chronic Essential (primary) hypertension chronic H/O aortic valve replacement February 24, 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 Hyperlipemia chronic Paroxysmal atrial fibrillation [facility] Work Phone: Consult note Author Vladimir Bourgeois [facility] August 22, 2023 2:24pm Note Date/Time August 22, 2023 2:24pm [facility] Medical Records Department [address] [place] [address] Counseling Note - Pharmacy 08/22/23 1424 MR#: [id number] Acct: [id number] Name: JODIE CARDENAS Rep #:[id number] : 1940 83 From: Vladimir Bourgeois PCP: Dr. Rios Downey, DO Status:ADM IN Location: [place] [address] Pharmacy [place] Med Reconciliation Pharmacy Service has performed discharge [...] unit/mL injection solution 25 unit subcut BID [id number]/27/16 cholecalciferol (vitamin D3) 25 mcg (1,000 unit) [...] Signature (if applicable): Date CC: ~ Signed [facility] Work Phone: Evaluation + Plan note Future Appointments Appointment Date:07/25/2024 04:00:00 PM Scheduled Provider:RIOS DOWNEY DO Location:[facility] Appointment Type:PC OV Future Scheduled Tests Laboratory* Prostate Specific Antigen 06/08/22 * Thyroid Stimulating Hormone 06/08/22 * Free T4 06/08/22 * Lipid Profile 06/08/22 * Hepatitis C Antibody IgG 06/08/22 * Microalbumin Level Urine 06/08/22 * Prothrombin Time - Panel 06/08/22 * Prothrombin Time - Panel 07/10/22 * Prothrombin Time - Panel 07/14/22 * Vitamin D Level 06/08/22 * Complete Metabolic Panel 06/08/22 [facility] Evaluation noteNo assessment information available [facility] Work Phone: Evaluation note* Diagnosis Onset Date Resolution Status Restrictive airway disease a cute Chronic renal failure, stage 3 (moderate) chronic Chronic respiratory failure with hypoxia chronic Obstructive sleep apnea [facility] Work Phone: Evaluation note* Diagnosis Onset Date Resolution Status Restrictive airway disease a cute Chronic renal failure, stage 3 (moderate) chronic Chronic respiratory failure with hypoxia chronic Obstructive sleep apnea [facility] Atherosclerosis of coronary artery of belkofski heart without angina pectoris chronic Essential (primary) hypertension chronic H/O aortic valve replacement February 24, 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, 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 Hyperlipemia chronic Paroxysmal atrial fibrillation [facility] Work Phone: Evaluation note* Diagnosis Onset Date Resolution Status Restrictive airway disease a cute Chronic respiratory failure with hypoxia chronic Obstructive sleep apnea [facility] Work Phone: Evaluation note* Diagnosis Onset Date Resolution Status Obstructive sleep apnea [facility] Work Phone: Evaluation note* Diagnosis Onset Date Resolution Status Encephalopathy acute TIA (transient ischemic attack) acute Essential (primary) hypertension chronic Paroxysmal atrial fibrillation [facility] Work Phone: Evaluation note* Diagnosis Onset [...] ml/min chronic Hypertension chronic Obstructive sleep apnea block tester kirby Encephalopathy resolved [facility] Work Phone: Evaluation note* Diagnosis Onset Date [...] ml/min chronic Hypertension chronic Obstructive sleep apnea block tester kirby Encephalopathy resolved Confusion acute Debility acute [facility] Work Phone: Evaluation note* Diagnosis Onset Date [...] ml/min chronic Hypertension chronic Obstructive sleep apnea block tester kirby Encephalopathy resolved Debility acute Acute exacerbation of CHF (congestive heart failure) chronic [facility] Work Phone: Evaluation note* Diagnosis Onset Date [...] ml/min chronic Hypertension chronic Obstructive sleep apnea block tester kirby Encephalopathy resolved Debility acute Aortic stenosis acute Debility acute Acute exacerbation of CHF (congestive heart failure) chronic Chronic respiratory failure chronic CKD (chronic kidney disease) stage 4, 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 [facility] Work Phone: Evaluation note* Diagnosis Onset Date [...] ml/min chronic Hypertension chronic Obstructive sleep apnea block tester kirby Encephalopathy resolved Debility acute Aortic stenosis acute Debility acute Acute exacerbation of CHF (congestive heart failure) chronic Chronic respiratory failure chronic CKD (chronic kidney disease) stage 4, 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 Chronic respiratory failure chronic Obstructive sleep apnea [facility] Work Phone: Evaluation note* Diagnosis Onset Date Resolution Status Aortic stenosis acute Atrial fibrillation acute Coronary artery disease acut e Debility acute Depression acute Diabetes mellitus acute Dysarthria acute Expressive aphasia acute GERD (gastroesophageal reflux disease) acute Seizure disorder acute Chronic respiratory failure chronic CKD (chronic kidney disease) stage 4, 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 Hypertension chronic Obstructive sleep apnea block tester kirby Encephalopathy resolved Debility acute Aortic stenosis acute Debility acute Acute exacerbation of CHF (congestive heart failure) chronic Chronic respiratory failure chronic CKD (chronic kidney disease) stage 4, 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 Chronic respiratory failure chronic Obstructive sleep apnea [facility] Work Phone: Evaluation note* Diagnosis Onset Date Resolution Status Aortic stenosis acute Debility acute Acute exacerbation of CHF (congestive heart failure) chronic Chronic respiratory failure chronic CKD (chronic kidney disease) stage 4, 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 I do recommend using [id number] Lidoderm patches as well to the area of maximum pain in your lower back. Return to the ER if you have a progression or worsening of your symptoms or further concerns.[facility] Work Phone: Progress note No data available for this section [facility] Reason for referral (narrative)No reason for referral information available[facility] Work Phone: Chief Complaint and Reason for Visit Chief Complaint 6 M FU RETACRIT RETACRIT RETACRIT RETACRIT Reason for Visit Atherosclerosis of c oronary artery of belkofski heart without angina pectoris Essential (primary) hypertension [...] sleep apnea Atherosclerosis of coronary artery of belkofski heart without angina pectoris Essential (primary) hypertension H/O aortic valve replacement H/O coronary artery bypass surgery Hyperlipemia Paroxysmal atrial fibrillation Chief Complaint 1 Y FU RETACRIT RETACRIT 6 M FU RETACRIT RETACRIT Reason for Visit Restrictive airway d isease Chronic renal failure, stage 3 (moderate) Chronic respiratory failure with hypoxia Obstructive sleep apnea Atherosclerosis of coronary artery of [place] heart without angina pectoris Essential (primary) hypertension H/O aortic valve replacement H/O coronary artery bypass surgery Hyperlipemia Paroxysmal atrial fibrillation Chief Complaint RETACRIT RETACRIT 6 M FU RETACRIT RETACRIT Reason for Visit Atherosclerosis of c oronary artery of [place] heart without angina pectoris Essential (primary) hypertension H/O aortic valve replacement H/O coronary artery bypass surgery Hyperlipemia Paroxysmal atrial fibrillation Chief Complaint RETACRIT RETACRIT 6 M FU RETACRIT RETACRIT RETACRIT Reason for Visit Atherosclerosis of c oronary artery of [place] heart without angina pectoris Essential (primary) hypertension H/O aortic valve replacement H/O coronary artery bypass surgery Hyperlipemia Paroxysmal atrial fibrillation Chief Complaint RETACRIT 6 M FU RETACRIT RETACRIT RETACRIT RETACRIT Reason for Visit Atherosclerosis of c oronary artery of [place] heart without angina pectoris Essential (primary) hypertension [...] FU Reason for Visit Obstructive sleep ap kalne Atherosclerosis of coronary artery of [place] heart without angina pectoris Essential (primary) hypertension H/O aortic valve replacement Hyperlipemia Paroxysmal atrial fibrillation Chief Complaint RETACRIT RETACRIT RETACRIT retacrit 1 Y FU retacrit Reason for Visit Atherosclerosis of c oronary artery of [place] heart without angina pectoris Essential (primary) hypertension H/O aortic valve replacement Hyperlipemia Paroxysmal atrial fibrillation Chief Complaint RETACRIT RETACRIT retacrit 1 Y FU retacrit retacrit Reason for Visit Atherosclerosis of c oronary artery of [place] heart without angina pectoris Essential (primary) hypertension H/O aortic valve replacement Hyperlipemia Paroxysmal atrial fibrillation Chief Complaint retacrit 1 Y FU retacrit retacrit retacrit retacrit Reason for Visit Atherosclerosis of c oronary artery of [place] heart without angina pectoris Essential (primary) hypertension [...] Visit Atherosclerosis of c oronary artery of [place] heart without angina pectoris Essential (primary) hypertension [...] lab draw May 22, 2025 2:56 pm Chief Complaint Admit Date lab draw February 26, 2025 2:39 pm CPAP motor life exceeded March 14 2:55pm lab draw March 28, 2025 2:42pm lab draw April 25, 2025 2:54p m lab draw May 22, 2025 2:56 pm ALT MENTAL STATUS May 31, 2025 9:57p m Chief Complaint Admit Date lab draw February 26, 2025 2:39 pm CPAP motor life exceeded March 14 2:55pm lab draw March 28, 2025 2:42pm lab draw April 25, 2025 2:54p m lab draw May 22, 2025 2:56 pm ALT MENTAL STATUS May 31, 2025 9:57p m 3 M FU June 13, 2025 3:00 pm Chief Complaint Admit Date lab draw February 26, 2025 2:39 pm CPAP motor life exceeded March 14 2:55pm lab draw March 28, 2025 2:42pm lab draw April 25, 2025 2:54p m lab draw May 22, 2025 2:56 pm ALT MENTAL STATUS May 31, 2025 9:57p m 3 M FU June 13, 2025 3:00 pm lab draw June 19, 2025 2:56 pm Reason for Visit Admit Date 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) March 14, 2025 2:55pm Chronic respiratory failure March 14, 2025 2:55pm Obstructive sleep apnea March 14, 2025 2:55pm 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) June 13, 2025 3:00pm Chronic respiratory failure June 13, 2 025 3:00pm Obstructive sleep apnea June 13, 2025 3:00pm Chief Complaint Admit Date lab draw February 26, 2025 2:39 pm CPAP motor life exceeded March 14 2:55pm lab draw March 28, 2025 2:42pm lab draw April 25, 2025 2:54p m lab draw May 22, 2025 2:56 pm ALT MENTAL STATUS May 31, 2025 9:57p m 3 M FU June 13, 2025 3:00 pm lab draw June 19, 2025 2:56 pm 9 M FU June 20, 2025 3:05 pm Family History No Family History Records Found Relationship Condition Age at Onset Recorded Date/T gautam father Myocardial infarction Unknown mother Cerebrovascular accident (CVA) Unknown brother Coronary artery disease Unknown Diabetes mellitus Unknown Advance Directives No Advanced Directives Records Found Advance Directive Response Recorded Date/ Time Advance Directives No September 12:41pm Living Will No January 31, 2021 1:32pm Power of Veterinarian Poultry No January 31 1:32pm Advance Directive Response Recorded Date/ Time Advance Directives No September 11:41am Living Will No January 31, 2021 12:32pm Power of Veterinarian Poultry No January 31 12:32pm Advance Directive Response Recorded Date/ Time Advance Directives No September 12:41pm Living Will No June 29, 2023 12:48pm Power of Veterinarian Poultry No June 29 12:48pm Advance Directive Response Recorded Date/ Time Advance Directives No September 12:41pm Living Will No June 29, 2023 3:15pm Power of Veterinarian Poultry No June 29 3:15pm Advance Directive Response Recorded Date/ Time Advance Directives No September 12:41pm Living Will No July 04, 2023 11:19am Power of Veterinarian Poultry No July 04 11:19am Advance Directive Response Recorded Date/ Time Name of Medical Power of Veterinarian Poultry GRAND DAUGHTER August 18, 2023 11:51am Advance Directives No September 12:41pm Living Will Yes August 18, 2023 11:51am Power of Veterinarian Poultry Yes July 11:51am Advance Directive Response Recorded Date/ Time Name of Medical Power of Veterinarian Poultry GRAND DAUGHTER August 18, 2023 5:51pm Advance Directives No September 12:41pm Living Will Yes August 18, 2023 5:51pm Power of Veterinarian Poultry Yes July 5:51pm Advance Directive Response Recorded Date/ Time Name of Medical Power of Veterinarian Poultry MARIA LUISA-GRANDDAUGHTER August 31, 2023 4:30pm Name of Medical Power of Veterinarian Poultry MARIA LUISA FRAME- GRANDDAUGHTER September 16, 2023 4:13pm Advance Directives No September 12:41pm Living Will Yes September 16 4:13pm Power of Veterinarian Poultry Yes September 16, 2023 4:13pm Name of Medical Power of Veterinarian Poultry GRAND DAUGHTER August 18, 2023 5:51pm Advance Directive Response Recorded Date/ Time Name of Medical Power of Veterinarian Poultry MARIA LUISA-GRANDDAUGHTER August 31, 2023 4:30pm Name of Medical Power of Veterinarian Poultry MARIA LUISA FRAME- GRANDDAUGHTER September 16, 2023 8:46pm Advance Directives No September 12:41pm Living Will Yes September 16 8:46pm Power of Veterinarian Poultry Yes September 16, 2023 8:46pm Name of Medical Power of Veterinarian Poultry GRAND DAUGHTER August 18, 2023 5:51pm Advance Directive Response Recorded Date/ Time Name of Medical Power of Veterinarian Poultry MARIA LUISA-GRANDDAUGHTER August 31, 2023 3:30pm Name of Medical Power of Veterinarian Poultry MARIA LUISA FRAME- GRANDDAUGHTER September 16, 2023 7:46pm Advance Directives No September 11:41am Living Will Yes September 16 7:46pm Power of Veterinarian Poultry Yes September 16, 2023 7:46pm Name of Medical Power of Veterinarian Poultry GRAND DAUGHTER August 18, 2023 4:51pm Advance Directive Response Recorded Date/ Time Name of Medical Power of Veterinarian Poultry MARIA LUISA ALARCON- GRANDDAUGHTER September 16, 2023 7:46pm Advance Directives No September 11:41am Living Will Yes September 16 7:46pm Power of Veterinarian Poultry Yes September 16, 2023 7:46pm Advance Directive Response Recorded Date/ Time Advance Directives No September 12:41pm Living Will Yes September 16 8:46pm Power of Veterinarian Poultry Yes September 16, 2023 8:46pm Advance Directive Response Recorded Date/ Time Name of Medical Power of Veterinarian Poultry maria luisa alarcon February 15, 2024 11:56pm Advance Directives No September 12:41pm Living Will Yes February 15, 2024 11:56pm Power of Veterinarian Poultry Yes February 14 11:56pm Advance Directive Response Recorded Date/ Time Name of Medical Power of Veterinarian Poultry VIVIEN Malin February 19, 2024 12:00pm Advance Directives No September 12:41pm Living Will Yes February 19, 2024 12:00pm Power of Veterinarian Poultry Yes February 18 12:00pm Name of Medical Power of Veterinarian Poultry maria luisa alarcon February 15, 2024 11:56pm Advance Directive Response Recorded Date/ Time Living Will Yes February 19, 2024 12:00pm Do you have a Healthcare Power of Veterinarian Poultry? Yes February 19, 2024 12:00pm Advance Directives No September 12:41pm Advance Directive Response Recorded Date/ Time Advance Directives No September 12:41pm Advance Directive Response Recorded Date/ Time Do you have a Healthcare Power of Veterinarian Poultry? Yes May 31, 2025 10:22pm Name of Medical Power of Veterinarian Poultry Maria Luisa Alarcon May 31, 2025 10:22pm Advance Directives No September 12:41pm Advance Directive Response Recorded Date/ Time Living Will Yes February 19, 2024 12:00pm Do you have a Healthcare Power of Veterinarian Poultry? Yes February 19, 2024 12:00pm Do you have a Healthcare Power of Veterinarian Poultry? Yes May 31, 2025 10:22pm Name of Medical Power of Veterinarian Poultry Maria Luisa Alarcon May 31, 2025 10:22pm Advance Directives No September 12:41pm Summary Purpose [...] DO Attending Provider Active Dr. Rios Downey , DO [...] Provider, Referrin g Provider Active Hector Sheldon DIRECTOR CARDIOLOGY, DIRECTOR CARDIOLOGY-C Attending Provider Active Team Status: Active Member Role Status Dates Dr. Riso Downey , DO Primary Care Provider Active [...] Inactive Member Role Status Dates Dr. Rios Downye DO Primary Care Provider Active Dr. eJremy Magallanes MD Attending Provider, Referring Pr ovider [...] Ashraf MD Other Provider Active Gosia Saenz DIRECTOR CARDIOLOGY, DIRECTOR CARDIOLOGY-C Other Provider Active Team Status: Active Member Role Status Dates Dr. Rios Downey , DO Primary Care Provider Active Dr. eCsar Medina , DO Emergency Provider Active Dr. [...] Ashraf MD Other Provider Active Gosia Saenz DIRECTOR CARDIOLOGY, DIRECTOR CARDIOLOGY-C Other Provider Active Team Status: Inactive Member [...] Ashraf MD Other Provider Active Gosia Saenz DIRECTOR CARDIOLOGY, DIRECTOR CARDIOLOGY-C Other Provider Active Team Status: Inactive Member Role Status Dates Dr. Rios Downey , DO Primary Care Provider, Referrin g Provider Active Gosia Saenz DIRECTOR CARDIOLOGY, DIRECTOR CARDIOLOGY-C Attending Provider Active Team Status: Active Member [...] , DO Other Provider Active Dr. Michelle Petesr MD Other Provider Active Dr. Otto Jerry MD Other Provider Active Dr. Tal Ashraf MD Other Provider Active Gosia Saenz DIRECTOR CARDIOLOGY, DIRECTOR CARDIOLOGY-C Other Provider Active Team Status: Inactive Member [...] Palomo , DO Attending Provider, Emergency P pat Active Team Status: Inactive Member Role Status Dates Dr. Rios Downey DO Primary Care Provider, Referrin g Provider Active Dang Dyer PA, PA Attending Provider Active Team Status: Inactive Member Role Status Dates Dr. Rios Downey DO Primary Care Prov ider, Attending Provider, Referring Provider Active Dr. Toñito Espino DO Other Provider Active Team Status: Active [...] 2025 End: March 14, 2025 Gosia Saenz DIRECTOR CARDIOLOGY, DIRECTOR CARDIOLOGY-C Attending Provider Active Start: March 14, 2025 [...] May 22, 2025 End: May 22, 2025 Team Status: Active Member Role/Relationship Status Dates Dr. Rios Downey DO Primary Care Provider Active Team Status: Inactive Member Role/Relationship Status Dates Dr. Rios Downey DO Primary Care Provider Active Start: February 26, 2025 End: February 26, 2025 Dr. Pepe Au MD Attending Provider Active Start: February 26, 2025 End: February 26, 2025 Dr. Pepe Au MD Referring Provider Active Start: February 26, 2025 End: February 26, 2025 Team Status: Inactive Member Role/Relationship Status Dates Dr. Rios Downey DO Primary Care Provider Active Start: March 14, 2025 End: March 14, 2025 Dr. Rios Downey DO Referring Provider Active Start: March 14, 2025 End: March 14, 2025 Gosia Saenz NP, DIRECTOR CARDIOLOGY-C Attending Provider Active Start: March 14, 2025 End: March 14, 2025 Team Status: Inactive Member Role/Relationship Status Dates Dr. Rios Downey DO Primary Care Provider Active Start: March 28, 2025 End: March 28, 2025 Dr. Pepe Au MD Attending Provider Active Start: March 28, 2025 End: March 28, 2025 Dr. Pepe Au MD Referring Provider Active Start: March 28, 2025 End: March 28, 2025 Team Status: Inactive Member Role/Relationship Status Dates Dr. Rios Downey DO Primary Care Provider Active Start: April 15, 2025 End: April 15, 2025 Dr. Pepe Au MD Attending Provider Active Start: April 15, 2025 End: April 15, 2025 Dr. Pepe Au MD Referring Provider Active Start: April 15, 2025 End: April 15, 2025 Team Status: Inactive Member Role/Relationship Status Dates Dr. Rios Downey DO Primary Care Provider Active Start: April 25, 2025 End: April 25, 2025 Dr. Pepe Au MD Attending Provider Active Start: April 25, 2025 End: April 25, 2025 Dr. Pepe Au MD Referring Provider Active Start: April 25, 2025 End: April 25, 2025 Team Status: Inactive Member Role/Relationship Status Dates Dr. Rios Downey DO Primary Care Provider Active Start: May 22, 2025 End: May 22, 2025 Dr. Pepe Au MD Attending Provider Active Start: May 22, 2025 End: May 22, 2025 Dr. Pepe Au MD Referring Provider Active Start: May 22, 2025 End: May 22, 2025 Team Status: Inactive Member Role/Relationship Status Dates Dr. Rios Downey DO Primary Care Provider Active Start: May 31, 2025 End: June 01, 2025 Dr. Duc Vicente MD Emergency Provider Active Sta rt: May 31, 2025 End: June 01, 2025 Team Status: Inactive Member Role/Relationship Status Dates Dr. Rios Downey DO Primary Care Provider Active Start: May 31, 2025 End: June 01, 2025 Dr. Duc Vicente MD Attending Provider Active Sta rt: May 31, 2025 End: June 01, 2025 Dr. Duc Vicente MD Emergency Provider Active Sta rt: May 31, 2025 End: June 01, 2025 Team Status: Inactive Member Role/Relationship Status Dates Dr. Rios Downey DO Primary Care Provider Active Start: June 13, 2025 End: June 13, 2025 Dr. Rios Downey DO Referring Provider Active Start: June 13, 2025 End: June 13, 2025 Gosia Saenz DIRECTOR CARDIOLOGY, DIRECTOR CARDIOLOGY-C Attending Provider Active Start: June 13, 2025 End: June 13, 2025 Team Status: Inactive Member Role/Relationship Status Dates Dr. Rios Downey DO Primary Care Provider Active Start: June 19, 2025 End: June 19, 2025 Dr. Pepe Au MD Attending Provider Active Start: June 19, 2025 End: June 19, 2025 Dr. Pepe Au MD Referring Provider Active Start: June 19, 2025 End: June 19, 2025 Team Status: Inactive Member Role/Relationship Status Dates Dr. Rios Downey DO Primary Care Provider Active Start: June 20, 2025 End: June 20, 2025 Dr. Rios Downey DO Referring Provider Active Start: June 20, 2025 End: June 20, 2025 Dr. Christian Shook MD Attending Provider Active S tart: June 20, 2025 End: June 20, 2025 (unrecognized sect ion and content) No Status Records FoundNo Status Records Found INFORMATION SOURCE (unrecogn ized section and content) DATE CREATED AUTHOR 05/29/2023 [facility] ([place]) DATE CREATED AUTHOR AUTHOR'S ORGANIZ ATION 06/25/2025 [facility] FOR RECORDS PERTAINING TO PATIENTS WHO [...] BE BASED ON THE PRIMARY CLINICAL RECORDS. [facility] [employer]. provides no warranty or guarantee of the accuracy or completeness of information in this document.
--- NOTE | 2025-07-06 16:31 | EKG12_ITS ---
Test Reason : SOB Blood Pressure : */* mmHG Vent. Rate : 49 BPM Atrial Rate : * BPM P-R Int : * ms QRS Dur : 148 ms QT Int : 512 ms P-R-T Axes : * 60 191 degrees QTcB Int : 462 ms atrial flutter Non-specific intra-ventricular conduction block Abnormal ECG Confirmed by DON BAIG, JEAN CLAUDE ([id number]), editor news ES SIMON ([id number]) on 07/08/2025 1:12:00 PM Referred By: Confirmed By: JEAN CLAUDE OCHOA MD
--- NOTE | 2025-07-06 16:33 | ED.VIS.DYS ---
HPI History of Present Illness Chief Complaint: Shortness of Breath Narrative Narrative: Patient is an 85-year-old male presenting to the emergency department for shortness of breath. Granddaughter at bedside. She helps provide history. He has a history of CHF, CKD, CAD, diabetes, A-fib, hypertension, hyperlipidemia. Patient states that for the past few days he has been short of breath. He wears 2 to 3 L baseline at rest and 5 L oxygen while ambulating. He reports that he has been feeling very fatigued. Reports lower extremity edema as well. Denies fever, chills, chest pain, abdominal pain, nausea, vomiting, diarrhea. Denies any known sick contacts. Denies history of DVT or PE he is on Eliquis and has been compliant with it. [facility] Medical History PAF (paroxysmal atrial fibrillation) AUTUMN treated with BiPAP Former smoker Chronic respiratory failure with hypoxia Atherosclerosis of coronary artery of [place] heart without angina pectoris Essential (primary) hypertension Chronic combined systolic and diastolic CHF (congestive heart failure) Lymphedema COPD (chronic obstructive pulmonary disease) Ocular migraine TIA (transient ischemic attack) Anemia Type 2 diabetes mellitus without complications Obstructive sleep apnea Atherosclerosis of coronary artery bypass graft without angina pectoris Non-rheumatic aortic stenosis Left bundle branch block Morbid obesity with BMI of 45.0-49.9, adult Chronic renal failure, stage 3 (moderate) Hyperlipemia Venous insufficiency of both lower extremities Home Medications ?Medication ?Instructions ?Recorded ?Last Taken ?Type aspirin 81 mg tablet,delayed 81 mg PO DAILY HEART HEALTH 07/11/16 07/03/23 History release multivitamin 1 ea PO DAILY HEALTH MAINTENANCE 07/11/16 08/18/23 History insulin regular human 100 unit/mL 10 unit subcut BID DIABETES 07/24/16 07/02/23 History injection solution cholecalciferol (vitamin D3) 25 25 mcg PO DAILY SUPPLEMENT 10/26/16 08/18/23 History mcg (1,000 unit) tablet sertraline 25 mg tablet 25 mg PO DAILY DEPRESSION 01/10/18 08/18/23 History famotidine 20 mg tablet 20 mg PO DAILY GERD 11/13/19 08/18/23 History olanzapine 2.5 mg tablet 2.5 mg PO QHS DEPRESSION 11/13/19 08/17/23 History allopurinol 300 mg tablet 300 mg PO DAILY GOUT 12/07/21 08/18/23 History apixaban 2.5 mg tablet (Eliquis) 2.5 mg PO BID BLOOD THINNER 10/07/22 07/03/23 History menthol 0.44 %-zinc oxide 20.6 % 1 applic topical BID 08/18/23 08/18/23 History topical ointment (Calmoseptine) nystatin 100,000 unit/gram topical 1 applic topical BID 08/18/23 08/18/23 History powder (Nystop) nitroglycerin 0.4 mg sublingual 0.4 mg sublingual Q5-15M PRN chest 03/23/24 Unknown Rx tablet (Nitrostat) pain #25 tabs amlodipine 2.5 mg tablet 2.5 mg PO DAILY #90 tabs 01/25/25 Unknown Rx furosemide 40 mg tablet 40 mg PO QDAY #90 tabs 01/25/25 Unknown Rx insulin NPH isoph U-100 human 100 10 unit subcut BID DIABETES 05/31/25 Unknown History unit/mL subcutaneous suspension levetiracetam 500 mg tablet 500 mg PO BID 05/31/25 Unknown History calcitriol 0.5 mcg capsule 0.5 mcg PO MOWEFR 07/06/25 Unknown History isosorbide mononitrate 60 mg 60 mg PO DAILY 07/06/25 Unknown History tablet,extended release 24 hr potassium chloride 20 mEq 20 meq PO DAILY 07/06/25 Unknown History tablet,extended release(part/cryst) Allergy/AdvReac Type Severity Reaction Status Date / Time Penicillins (PCN) Allergy Swelling Verified 07/06/25 15:29 Family History Father Myocardial infarction Mother CVA (cerebral vascular accident) Brother CAD (coronary artery disease) Diabetes Surgical History Hx of cholecystectomy (01/13/17) H/O aortic valve replacement (02/24/16) H/O coronary artery bypass surgery (02/24/16) Social History household members: family and other details: Granddaughter. 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 No acute distress. Chronically unwell appearing. Obese. HEENT: Head is normocephalic and atraumatic, sinuses nontender, pupils equal round and reactive. Nares are patent. Oropharynx and throat exams normal. Neck: Supple without lymphadenopathy nontender Cardiovascular: Bradycardic, no murmurs. No rubs or gallops. Normal S1 and S2 Respiratory: Bilateral lower lobe rhonchi heard. No wheezing. Abdominal: Soft and nontender. Normal bowel sounds. No guarding or rebound. Nonsurgical abdomen Extremities: Symmetric bilateral lower extremity pitting edema. Normal range of motion. Normal sensation. Skin: No rash or redness. Neurological: Cranial nerves II through XII are grossly intact. Normal strength and sensation. Normal cerebellar function The rest of the physical exam is unremarkable Const Vital Signs: 07/06/25 15:28 07/06/25 15:29 07/06/25 16:27 Temperature 98.2 F 98.2 F Temperature Source Oral Oral Pulse Rate 51 L 51 L 49 L Respiratory Rate 16 16 17 Respiratory Effort Respiratory Pattern Blood Pressure 120/68 120/68 134/68 H Blood Pressure Mean 85 85 90 Pulse Ox 100 100 100 Oxygen Delivery Method Nasal Cannula Nasal Cannula Room Air Oxygen Flow Rate (L/min) 5 5 07/06/25 16:36 07/06/25 16:39 07/06/25 16:42 Temperature Temperature Source Pulse Rate Respiratory Rate Respiratory Effort Short of Breath Respiratory Pattern Tachypnea Blood Pressure Blood Pressure Mean Pulse Ox 100 Oxygen Delivery Method Nasal Cannula Nasal Cannula Nasal Cannula Oxygen Flow Rate (L/min) 4 2.5 07/06/25 17:00 07/06/25 18:00 07/06/25 19:00 Temperature Temperature Source Pulse Rate 47 L 47 L 47 L Respiratory Rate 16 13 16 Respiratory Effort Respiratory Pattern Blood Pressure 129/66 H 115/74 135/64 H Blood Pressure Mean 87 88 85 Pulse Ox 100 98 100 Oxygen Delivery Method Oxygen Flow Rate (L/min) MDM MDM MDM Narrative Medical decision making narrative: Patient is an 85-year-old male presenting to emergency department for shortness of breath. Patient was seen and examined. He is bradycardic at 52 with a stable BP. Normal respirations and afebrile at time of arrival. Saturating 100% on 5 L nasal cannula which she normally wears with activity, 2 to 3 L at rest. Differential includes but is not limited to: CHF exacerbation, ACS, pneumonia, viral, PE less likely given the patient is on Eliquis and has been compliant. CBC with no leukocytosis and chronic anemia of 10.4. BMP with what appears to be DARRYL on CKD with hyperkalemia of 6.3. With bradycardia and QRS widening did treat this given risks of not treating a possible hyperkalemic level although labs possibly hemolyzed. Elevated BNP of 12,661, consistent with his exam pointing towards CHF exacerbation as cause of hypoxia. Inital troponin of 104, reflex of 96. Suspect type 2 NSTEMI secondary from his CHF exacerbation. Chest x-ray shows cardiomegaly with no acute findings. Given the patient's CHF exacerbation necessitating increased oxygen from baseline and his hyperkalemia, recommended admission to patient and daughter. They were agreeable. Admitted to hospitalist service under Dr. Macias for further management. History & Record Review Discussion w/independent historian: Patient and Family Lab Data Attestation: I reviewed the patient's lab results. Labs: Laboratory Results - last 24 hr 07/06/25 07/06/25 07/06/25 16:18 17:42 18:40 WBC 6.7 RBC 3.20 L Hgb 10.4 L Hct 32.4 L MCV 101.3 H MCH 32.5 H MCHC 32.1 RDW Std Deviation 60.4 H RDW Coeff of Yney 16.7 H Plt Count 117 L MPV 11.7 Immature Gran % (Auto) 0.700 Neut % (Auto) 70.8 H Lymph % (Auto) 16.9 L [place] % (Auto) 9.3 Eos % (Auto) 1.9 Baso % (Auto) 0.4 Absolute Neuts (auto) 4.7 Absolute Lymphs (auto) 1.13 Nucleated RBC % 0.4 Sodium 137 Potassium 6.3 H* 5.4 H Chloride 108 Carbon Dioxide 14.7 L Anion Gap 15 BUN 76 H Creatinine 3.01 H Estim Creat Clear Calc 22.08 L Est GFR (MDRD) Non-Af 20 L BUN/Creatinine Ratio 25.3 H Glucose 119 H Calcium 9.4 Troponin T High Sens 104 H* Troponin T Hi Sens 2 Hr 96 H* [place] [address] H POC Glucose 91 Radiography Chest X-Ray - ED: 2 View, Read by ED Physician, Cardiomegaly and No Infiltrates Diagnostic Testing: Clinical Impression(s) from Imaging Studies Chest X-Ray 07/06/25 16:45 IMPRESSION: CARDIOMEGALY. NO ACUTE FINDINGS. Reading Location: [id number] Management Discussion w/another healthcare provider: Hospitalist Discharge Plan Disposition Disposition: Acute Care Hospital [facility] Discharge Date/Time: 07/06/25 20:19
--- NOTE | 2025-07-06 16:45 | RAD_ITS ---
PROCEDURE: CHEST PA AND LATERAL 07/06/2025 REASON FOR EXAM: SOB TECHNIQUE: CHEST PA AND LATERAL COMPARISON: Chest radiograph 05/31/2025. FINDINGS: Hardware: Prior median sternotomy, CABG and aortic valve replacement. Heart: Stable moderate cardiomegaly. Mediastinum: The mediastinal contour is stable. Lungs: Low lung volumes. Bibasilar atelectasis. No obvious focal consolidation, pleural effusion or pneumothorax. Bones: Degenerative changes are identified within the thoracic spine. RAD/Chest PA and Lateral IMPRESSION: CARDIOMEGALY. NO ACUTE FINDINGS. Reading Location: [id number]
[2025-07-06 16:59] LABS: Hematocrit 32.4 % (40-54); Hemoglobin 10.4 g/dL (13.0-16.5); Immature Granulocytes Count 0.050 X10^3/uL (0.0-0.0); Mean Corp Hgb Conc 32.1 g/dL (32-36); Mean Corpuscular Volume 101.3 fL (80-94); Mean Platelet Vol. 11.7 fl (6.2-12.0); NRBC Flagged by Analyzer 0.4 % (0-5); Platelet Count 117 K/mm3 (150-450); RBC Distribution Width CV 16.7 % (11.6-14.6); RBC Distribution Width SD 60.4 fl (35.1-43.9); Red Blood Count 3.20 M/mm3 (4.6-6.2); White Blood Count 6.7 K/mm3 (4.4-11.0)
[2025-07-06 17:09] LABS: Anion Gap 15 (5-15); BUN 76 mg/dL (4-19); BUN/Creat Ratio 25.3 RATIO (10-20); Calcium,Total 9.4 mg/dL (7.6-11.0); Carbon Dioxide 14.7 mmol/L (21.0-32.0); Chloride 108 mmol/L (98-108); Estimated Creatinine Clearance 22.08 ml/min (50-250); Glucose 119 mg/dL (70-99); Potassium 6.3 mmol/L (3.3-5.1); Pro- Brain NATRIURETIC PEPTIDE 12661 pg/mL (<=1800); Troponin T High Sensitivity 104 ng/L (<=22)
[2025-07-06] MEDS: Calcium Gluconate IV 3 GM in Syringe 1 EACH IV (17:51)
[2025-07-06] MEDS: Insulin Lispro 5 UNIT in Syringe 0 ML 6 UNIT IV (17:51)
[2025-07-06] MEDS: Furosemide 20 MG/2 ML VIAL IV ×2 (18:36→21:22)
--- NOTE | 2025-07-06 19:13 | PCM.HP.STD ---
[facility] - General General Date of Service: 07/06/25 Chief Complaint: Shortness of breath HPI Narrative JODIE SILVERIO, is a 85 M who presents with increased shortness of breath with exertion and increased lower extremity edema. This is an 85-year-old male with a history of HFrEF presents with the above symptoms. Legs are very swollen and tight. Does not check his weight daily so unclear he had put on any weight. About presented to the emergency room where he had an elevated BNP of 12,661, troponin of 104 chest x-ray was unremarkable but was also noted that his potassium was elevated at 6.3. He had received dextrose and insulin, calcium gluconate as well as Tylenol and furosemide. It was later determined that the potassium collected was actually hemolyzed. A repeat potassium has been ordered and is currently pending. [facility] Medical History PAF (paroxysmal atrial fibrillation) AUTUMN treated with BiPAP Former smoker Chronic respiratory failure with hypoxia Atherosclerosis of coronary artery of [place] heart without angina pectoris Essential (primary) hypertension Chronic combined systolic and diastolic CHF (congestive heart failure) Lymphedema COPD (chronic obstructive pulmonary disease) Ocular migraine TIA (transient ischemic attack) Anemia Type 2 diabetes mellitus without complications Obstructive sleep apnea Atherosclerosis of coronary artery bypass graft without angina pectoris Non-rheumatic aortic stenosis Left bundle branch block Morbid obesity with BMI of 45.0-49.9, adult Chronic renal failure, stage 3 (moderate) Hyperlipemia Venous insufficiency of both lower extremities Home Medications ?Medication ?Instructions ?Recorded ?Last Taken ?Type aspirin 81 mg tablet,delayed 81 mg PO DAILY HEART HEALTH 07/11/16 07/03/23 History release multivitamin 1 ea PO DAILY HEALTH MAINTENANCE 07/11/16 08/18/23 History insulin regular human 100 unit/mL 10 unit subcut BID DIABETES 07/24/16 07/02/23 History injection solution cholecalciferol (vitamin D3) 25 25 mcg PO DAILY SUPPLEMENT 10/26/16 08/18/23 History mcg (1,000 unit) tablet sertraline 25 mg tablet 25 mg PO DAILY DEPRESSION 01/10/18 08/18/23 History famotidine 20 mg tablet 20 mg PO DAILY GERD 11/13/19 08/18/23 History olanzapine 2.5 mg tablet 2.5 mg PO QHS DEPRESSION 11/13/19 08/17/23 History allopurinol 300 mg tablet 300 mg PO DAILY GOUT 12/07/21 08/18/23 History apixaban 2.5 mg tablet (Eliquis) 2.5 mg PO BID BLOOD THINNER 10/07/22 07/03/23 History menthol 0.44 %-zinc oxide 20.6 % 1 applic topical BID 08/18/23 08/18/23 History topical ointment (Calmoseptine) nystatin 100,000 unit/gram topical 1 applic topical BID 08/18/23 08/18/23 History powder (Nystop) nitroglycerin 0.4 mg sublingual 0.4 mg sublingual Q5-15M PRN chest 03/23/24 Unknown Rx tablet (Nitrostat) pain #25 tabs amlodipine 2.5 mg tablet 2.5 mg PO DAILY #90 tabs 01/25/25 Unknown Rx furosemide 40 mg tablet 40 mg PO QDAY #90 tabs 01/25/25 Unknown Rx insulin NPH isoph U-100 human 100 10 unit subcut BID DIABETES 05/31/25 Unknown History unit/mL subcutaneous suspension levetiracetam 500 mg tablet 500 mg PO BID 05/31/25 Unknown History calcitriol 0.5 mcg capsule 0.5 mcg PO MOWEFR 07/06/25 Unknown History isosorbide mononitrate 60 mg 60 mg PO DAILY 07/06/25 Unknown History tablet,extended release 24 hr potassium chloride 20 mEq 20 meq PO DAILY 07/06/25 Unknown History tablet,extended release(part/cryst) Allergy/AdvReac Type Severity Reaction Status Date / Time Penicillins (PCN) Allergy Swelling Verified 07/06/25 15:29 Family History Father Myocardial infarction Mother CVA (cerebral vascular accident) Brother CAD (coronary artery disease) Diabetes Surgical History Hx of cholecystectomy (01/13/17) H/O aortic valve replacement (02/24/16) H/O coronary artery bypass surgery (02/24/16) Social History household members: family and other details: Granddaughter. 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 Has been weak and has fallen which is suspected because of the bruising in his left upper extremity. No fever or chills. Sore throat. All review of systems were negative except as mentioned above in the history of present illness and the other review of systems. Vital Signs Vital Signs Vital Signs: 07/06/25 15:28 07/06/25 15:29 07/06/25 16:27 Temperature 36.8 C 36.8 C Temperature Source Oral Oral Pulse Rate 51 L 51 L 49 L Respiratory Rate 16 16 17 Respiratory Effort Respiratory Pattern Blood Pressure 120/68 120/68 134/68 H Blood Pressure Mean 85 85 90 Pulse Ox 100 100 100 Oxygen Delivery Method Nasal Cannula Nasal Cannula Room Air Oxygen Flow Rate (L/min) 5 5 07/06/25 16:36 07/06/25 16:39 07/06/25 16:42 Temperature Temperature Source Pulse Rate Respiratory Rate Respiratory Effort Short of Breath Respiratory Pattern Tachypnea Blood Pressure Blood Pressure Mean Pulse Ox 100 Oxygen Delivery Method Nasal Cannula Nasal Cannula Nasal Cannula Oxygen Flow Rate (L/min) 4 2.5 07/06/25 17:00 07/06/25 18:00 07/06/25 19:00 Temperature Temperature Source Pulse Rate 47 L 47 L 47 L Respiratory Rate 16 13 16 Respiratory Effort Respiratory Pattern Blood Pressure 129/66 H 115/74 135/64 H Blood Pressure Mean 87 88 85 Pulse Ox 100 98 100 Oxygen Delivery Method Oxygen Flow Rate (L/min) Weight Weight: 121.4 kg Body Mass Index (BMI) 44.5 Physical Exam Narrative Limited POCUS exam due to body habitus. Use curvilinear probe IVC was visualized and was dilated and noncollapsible with respirations. I could not get a good subxiphoid view of the heart. Using the linear probe, the lungs were evaluated in the anterior and lateral hunter and no B-lines were noted. Const alert and no apparent distress Constitutional Narrative: Hard of hearing. No respiratory distress. No conversational dyspnea. HEENT normocephalic Eyes Eyes Narrative: No icterus. Slight proptosis. Neck Neck Narrative: Large neck girth Resp Resp Narrative: Coarse breath sounds bilaterally Cardio Cardio Narrative: Bradycardic. No murmurs gallops or rubs. GI GI Narrative: Obese but soft. Nontender nondistended. Extremity Extremity Narrative: Tight bilateral lower extremity edema with venous stasis changes to the distal lower extremities. Skin Skin Narrative: Venous stasis changes to the lower extremities. Bruising on left upper extremity. Neuro moves all extremities Sensorium / Orientation: awake and alert Psych affect normal Results Lab / Micro Data 07/06/25 16:18 07/06/25 16:18 Labs: Laboratory Results - last 24 hr 07/06/25 16:18: WBC 6.7, RBC 3.20 L, Hgb 10.4 L, Hct 32.4 L, MCV 101.3 H, MCH 32.5 H, MCHC 32.1, RDW Std Deviation 60.4 H, RDW Coeff of Yeny 16.7 H, Plt Count 117 L, MPV 11.7, Immature Gran % (Auto) 0.700, Neut % (Auto) 70.8 H, Lymph % (Auto) 16.9 L, [place] % (Auto) 9.3, Eos % (Auto) 1.9, Baso % (Auto) 0.4, Absolute Neuts (auto) 4.7, Absolute Lymphs (auto) 1.13, Nucleated RBC % 0.4, Sodium 137, Potassium 6.3 H*, Chloride 108, Carbon Dioxide 14.7 L, Anion Gap 15, BUN 76 H, Creatinine 3.01 H, Estim Creat Clear Calc 22.08 L, Est GFR (MDRD) Non-Af 20 L, BUN/Creatinine Ratio 25.3 H, Glucose 119 H, Calcium 9.4, Troponin T High Sens 104 H*, [place] [address] H 07/06/25 17:42: POC Glucose 91 Micro: Microbiology 07/06/25 16:45 Mucosa - Nose SARS-CoV-2, Influenza & RSV (PCR) - Final Imaging Radiology Impression Chest X-Ray 07/06/25 16:45 IMPRESSION: CARDIOMEGALY. NO ACUTE FINDINGS. Reading Location: [id number] Assessment & Plan Assessment/Plan (1) HFrEF (heart failure with reduced ejection fraction): PLAN: Acute on chronic Looking at his weight looks like he is put on nearly 15 kg since May though this may not be accurate given the bed scale. Patient received 20 mg of IV furosemide in emergency room and will give an additional 20 to give a total of 40 today and then will continue with 40 IV twice daily Additional plans Daily weights, fluid restrict 1.5 L/day, repeat echocardiogram. Echocardiogram from October 10, 2024 showed EF 40% with pulmonary systolic pressure of 43 mmHg. Not a candidate for DIONNA inhibitor/angiotensin receptor josey given CKD (2) Bradycardia: PLAN: Looks like A-fib with heart rate in the 40s to 50s. He is not on any chronotropic medications such as beta-blockers norNondihydropyridine calcium channel blockers such as diltiazem (he does take amlodipine but this is a dihydropyridine calcium channel josey) Though from Dr. Shook's note from 06/21/25 it mentions containing metoprolol for rate control but is not on his medication list during this hospitalization nor was it on the office list at that time Will monitor for now and if continues to be ongoing may need to consult cardiology. (3) Elevated troponin I level: PLAN: Doubt non-STEMI this is likely due to demand ischemia from CHF but also skewed upwards given his CKD. No additional workup unless he has change in his clinical status. (4) Hyperkalemia: PLAN: Sample was hemolyzed which I brought the attention of the emergency room physician. Patient did receive treatment though however with dextrose and insulin, calcium gluconate. Recheck and hopefully the subsequent sample is not hemolyzed. Will be holding the oral potassium for now. PLAN: Plan Possible mild cognitive impairment/dementia: Granddaughter, whom he lives with, mentioned that he gets confused at night occasionally and worse when he comes in the hospital. Unclear if he does have MCI or dementia but can be referred to geriatrics as outpatient have a formal testing. Debility: Patient has had some falls and some concerns for falls (bruising on left upper extremity). PT OT evaluate and treat. Case management to assist with disposition case heart level needs are necessary upon discharge. Chronic medical conditions Diabetes mellitus type 2: Insulin-dependent. Patient takes NPH. Will change it over to glargine twice daily & scale insulin. Check an A1c. Seizure disorder: Continue levetiracetam. Hypertension: I am holding off on the patient's amlodipine due to the lower extremity edema. Mood disorder: Continue olanzapine, sertraline. Obesity class III: Complicates care and recovery. A-fib: Not on any chronotropic medications that I can see from his list. Continue with apixaban. CAD: Status post CABG. Continue with aspirin VTE prophylaxis: Low risk as patient is already anticoagulated. CODE STATUS: Addressed with the patient and his daughter and verified that his previous CODE STATUS of DNR Comfort Care arrest no intubation is still in place which they confirmed he is. Charges/Coding Visit Charges Inpatient E&M: 06335 Init Hosp L3
[2025-07-06 19:29] LABS: Troponin T High Sens 2 HR 96 ng/L (<=22)
--- OUTSIDE RECORDS SUMMARY | 2025-07-06 19:38 | XMS RPT_ITS | CCD ---
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 Jennifer Lu Primary Care Provider Dr. Jennifer Lu Referring Provider [phone] Monalisa FIRE PATROLLER, FIRE PATROLLER-C Hector Nogueira Attending Provider [phone] Dr. Jennifer Lu Primary Care Provider Aly, Dr. Gavin Referring Provider [phone] Dany FIRE PATROLLER, FIRE PATROLLER-C Gosia Attending Provider Monalisa FIRE PATROLLER, FIRE PATROLLER-C Hector Nogueira Attending Provider Dr. Jennifer Lu Primary Care Provider Dr. Jennifer Lu Referring Provider [phone] Dr. Jennifer Lu Primary Care Provider Aly, Dr. Gavin Referring Provider [phone] Monalisa FIRE PATROLLER, ZOYA-C Hector Nogueira Attending Provider Dr. Jennifer Lu Referring Provider [phone] Dr. Josh Cline Attending Provider Dr. Rios Downey Primary Care Provider [phone] Dr. Rios Downey Referring Provider [phone] Monalisa FIRE PATROLLER, FIRE PATROLLER-C Hector Nogueira Attending Provider [phone] Rios Downey Primary Care Provider [phone] Dr. Rios Downey Referring Provider [phone] Monalisa FIRE PATROLLER, FIRE PATROLLER-C Hector Nogueira Attending Provider [phone] RIOS [...] Dr. Tal Ashraf Other Provider Unavailab Mir FIRE PATROLLER, FIRE PATROLLER-C Gosia Other Provider Dr. Yaakov Love Attending [...] Tal Ashraf Other Provider Unavailab le Dany FIRE PATROLLER, FIRE PATROLLER-C Gosia Other Provider Dr. Eladio Lucas Referring Provider Dr. Yaakov Love Attending Provider Dr. Rios Downey Referring Provider [phone] Dany FIRE PATROLLER, FIRE PATROLLER-C Gosia Attending Provider Dr. Rios Downey Primary [...] Tal Ashraf Other Provider Unavailab le Dany FIRE PATROLLER, FIRE PATROLLER-C Gosia Other Provider Dr. Eladio Lucas Attending Provider Dr. Rios Downey Referring Provider [phone] Dany FIRE PATROLLER, FIRE PATROLLER-C Gosia Attending Provider Dr. Rios Downey Primary [...] Downey DO Referring Provider [phone] Dany FIRE PATROLLER-C, Gosia Attending Provider Dr. Duc Vicente MD Attending Provider Dr. Duc Vicente MD Emergency Provider [phone] Bouchra BAIG, Dr. Gonzales Attending Provider [phone] Downey, Rios Primary Care Unavailable Bouchra, Christian [...] Attending Unavailable Rios Downey Referring Unavailable Dany FIRE PATROLLER, Gosia Attending Unavailable Rios Downey Primary Care Unavailable Allergies Allergy Classification Reported Allergen(s) Allergy Type Date of Onset Reaction(s) Facility (20 sources) Penicillins; Translations: [Penicillin -class of antibiotic- (substance)] Allergy to substance 1 Swelling, [facility] (1 source) Pravastatin; Translations: [pravastatin] Drug Allergy Cramp (finding) [facility] [place] Medications Current Medications Medication Drug Class(es) Dates [...] attention, # 25 tab(s), 11 Refill(s), Pharmacy: [id number], 161, cm, 04/30/21 16:15:00 [...] Drug Class(es) Dates Sig (Normalized) Sig (Original) [id number] actuat albuterol 0.09 mg/actuat metered dose [...] 6:26pm CHOLSTEROL Start: 07-11-2016 End: 09-16-2023 calcitriol 0.76154 mg oral c apsule (20 sources) Vitamin [...] docusate sodium 50 mg / delvis osides, prison 8.6 mg oral tablet (20 sources) Start: [...] Coronary atherosclerosis; 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 Comment [...] Auto (Unsp spec) [#/Vol] 1.40 10*3/uL 0.83-4.51 [facility] Absolute neutrophil countOrd ered By: Pepe Au on 06-19-2025 Neutrophils (Bld) [#/Vol] 4.6 10*3/uL 2.0-7.7 [facility] Anion gap in Serum or Plasma Ordered By: Pepe Au on 06-19-2025 Anion gap [Moles/Vol] 14 mmol/L 5-15 [facility] Automated lymphocyte count a s percentage of total leukocytesOrdered By: Pepe Au on 06-19-2025 Lymphocytes/100 WBC Auto (Unsp spec) 20.6 % 19-41 [facility] BUN/creatinine ratioOrdered By: Pepe Au on 06-19-2025 Urea nitrogen/Creatinine [Mass ratio] 24.9 mg/mg High 10-20 [facility] Basophil percentageOrdered B y: Pepe Au on 06-19-2025 Basophils/100 WBC (Bld) 0.4 % 0-1 [facility] Carbon dioxide, total [Moles /volume] in Central venous bloodOrdered By: Pepe Au on 06-19-2025 CO2 [Moles/Vol] 19.7 mmol/L Low 21.0-32.0 [facility] Chloride assayOrdered By: Chaim Au on 06-19-2025 Chloride [Moles/Vol] 108 mmol/L 98-108 [facility] Eosinophil percentageOrdered By: Pepe Au on 06-19-2025 Eosinophils/100 WBC (Bld) 1.0 % 0-5 [facility] Erythrocyte distribution wid th ratioOrdered By: Pepe Au on 06-19-2025 Erythrocyte distribution width (RBC) [Ratio] 14.7 % High 11.6-14.6 [facility] Erythrocyte distribution wid th standard deviationOrdered By: Pepe Au on 06-19-2025 Erythrocyte distribution width (RBC) [Ratio] 53.2 fl High 35.1-43.9 [facility] Glomerular filtration rate ( GFR) estimation/1.73 sq m using serum, plasma, or whole bOrdered By: Pepe Au on 06-19-2025 GFR/1.73 sq M.predicted among non-blacks MDRD (S/P/Bld) [Vol rate/Area] 22 mL/min/{1.73_m2} Low >60 [facility] Comment on above: mL/min/1.73m2 CKD-EP I Creatinine Equation (2020) Hematocrit Auto (Bld) [Volum e fraction]Ordered By: Pepe Au on 06-19-2025 Hematocrit (Bld) [Volume fraction] 35.0 % Low 40-54 [facility] Hemoglobin measurementOrdere d By: Pepe Au on 06-19-2025 Hemoglobin (Bld) [Mass/Vol] 11.2 g/dL Low 13.0-16.5 [facility] Immature granulocytes/100 WB C Auto (Bld)Ordered By: Pepe Au on 06-19-2025 Immature granulocytes/100 WBC (Bld) 0.400 % 0.0-0.9 [facility] Comment on above: IG% - Immature Granu locytes (promyelocytes, myelocytes and metamyelocytes) > 1% indicates that a LEFT SHIFT is Present. Iron measurement (mass/mass) Ordered By: Pepe Au on 06-19-2025 Iron (Unsp spec) [Mass/Mass] 59 ug/dL Low 65-175 [facility] MCV (mean corpuscular volume ) determinationOrdered By: Pepe Au on 06-19-2025 MCV (RBC) [Entitic vol] 100.3 fL High 80-94 [facility] Mean corpuscular hemoglobin (MCH) determinationOrdered By: Pepe Au on 06-19-2025 MCH (RBC) [Entitic mass] 32.1 pg High 27.0-32.0 [facility] Mean corpuscular hemoglobin concentration (MCHC) determinationOrdered By: Pepe Au on 06-19-2025 MCHC (RBC) [Mass/Vol] 32.0 g/dL 32-36 [facility] Mean platelet volume determi nationOrdered By: Pepe Au on 06-19-2025 Platelet mean volume (Bld) [Entitic vol] 11.8 fL 6.2-12.0 [facility] Monocyte percentageOrdered B y: Pepe Au on 06-19-2025 Monocytes/100 WBC (Bld) 9.3 % 0-10 [facility] Neutrophil percentageOrdered By: Pepe Au on 06-19-2025 Neutrophils/100 WBC (Bld) 68.3 % 47-70 [facility] No Panel InformationOrdered By: Pepe Au on 06-19-2025 Unsaturated Iron Binding Capacity 189 ug/dL Low 228-428 [facility] 189 ug/dL Low 228-428 [facility] Nucleated red blood cell per centageOrdered By: Pepe Au on 06-19-2025 Nucleated RBC/100 WBC (Bld) [Ratio] 0 % 0-5 [facility] Platelet countOrdered By: Chaim Au on 06-19-2025 Platelets (Bld) [#/Vol] 103 10*3/uL Low 150-450 [facility] Potassium measurement (mass/ volume)Ordered By: Pepe Au on 06-19-2025 Potassium (Unsp spec) [Mass/Vol] 5.1 mmol/L 3.3-5.1 [facility] RBC Auto (Bld) [#/Vol]Ordere d By: Pepe Au on 06-19-2025 RBC (Bld) [#/Vol] 3.49 10*6/uL Low 4.6-6.2 [facility] Serum creatinine measurement (mass/volume)Ordered By: Pepe Au on 06-19-2025 Creatinine [Mass/Vol] 2.72 mg/dL High 0.70-1.20 [facility] Serum glucose measurement (m ass/volume)Ordered By: Pepe Au on 06-19-2025 Glucose [Mass/Vol] 99 mg/dL 70-99 [facility] Serum or plasma albumin aubree urement (mass/volume)Ordered By: Pepe Au on 06-19-2025 Albumin [Mass/Vol] 3.9 g/dL 3.4-4.8 [facility] Serum or plasma calcium aubree urement (mass/volume)Ordered By: Pepe Au on 06-19-2025 Calcium [Mass/Vol] 9.9 mg/dL 7.6-11.0 [facility] Serum or plasma ferritin laurie surement (mass/volume)Ordered By: Pepe Au on 06-19-2025 Ferritin [Mass/Vol] 168 ng/mL 37-417 [facility] Serum or plasma iron saturat ion measurement (mass fraction)Ordered By: Pepe Au on 06-19-2025 Iron saturation [Mass fraction] 24.0 % 9-55 [facility] Serum or plasma urea nitroge n measurement (mass/volume)Ordered By: Pepe Au on 06-19-2025 Urea nitrogen [Mass/Vol] 68 mg/dL High 4-19 [facility] Sodium levelOrdered By: Lety Au on 06-19-2025 Sodium [Moles/Vol] 141 mmol/L 133-145 [facility] White blood cell (WBC) count Ordered By: Pepe Au on 06-19-2025 WBC (Bld) [#/Vol] 6.8 10*3/uL 4.4-11.0 [facility] Absolute lymphocyte countOrd ered By: Duc Vicente on 05-31-2025 Lymphocytes Auto (Unsp spec) [#/Vol] 1.81 10*3/uL 0.83-4.51 [facility] Absolute neutrophil countOrd ered By: Duc Vicente on 05-31-2025 Neutrophils (Bld) [#/Vol] 3.5 10*3/uL 2.0-7.7 [facility] Anion gap in Serum or Plasma Ordered By: Duccarlee Vicente on 05-31-2025 Anion gap [Moles/Vol] 12 mmol/L 5-15 [facility] Assessment of wrist artery p atency prior to arterial punctureOrdered By: Duccarlee Vicente on 05-31-2025 Arterial patency Wrist artery --pre arterial puncture Positive [facility] Automated lymphocyte count a s percentage of total leukocytesOrdered By: Duc Vicente on 05-31-2025 Lymphocytes/100 WBC Auto (Unsp spec) 30.0 % 19-41 [facility] BUN/creatinine ratioOrdered By: Duc Vicente on 05-31-2025 Urea nitrogen/Creatinine [Mass ratio] 21.1 mg/mg High 10-20 [facility] Basophil percentageOrdered B y: Duc Vicente on 05-31-2025 Basophils/100 WBC (Bld) 0.5 % 0-1 [facility] Bilirubin Test strip Ql (U)O rdered By: Duc Vicente on 05-31-2025 Bilirubin Ql (U) Negative Negative [facility] Bilirubin, totalOrdered By: Duc Vicente on 05-31-2025 Bilirubin [Mass/Vol] 0.76 mg/dL 0.00-1.30 [facility] Blood base excess determinat ionOrdered By: Duccarlee Calderono on 05-31-2025 Base excess Calc (BldV) [Moles/Vol] -1 mmol/L -2-2 [facility] Blood bicarbonate measuremen tOrdered By: Duccarlee Vicente on 05-31-2025 HCO3 (Bld) [Moles/Vol] 24.0 mmol/L 22-26 [facility] Carbon dioxide, total [Moles /volume] in Central venous bloodOrdered By: Duccarlee Vicente on 05-31-2025 CO2 [Moles/Vol] 21.8 mmol/L 21.0-32.0 [facility] Chloride assayOrdered By: [facility] Jules on 05-31-2025 Chloride [Moles/Vol] 108 mmol/L 98-108 [facility] Eosinophil percentageOrdered By: Duccarlee Vicente on 05-31-2025 Eosinophils/100 WBC (Bld) 2.2 % 0-5 [facility] Erythrocyte distribution wid th ratioOrdered By: Duccarlee Vicente on 05-31-2025 Erythrocyte distribution width (RBC) [Ratio] 15.0 % High 11.6-14.6 [facility] Erythrocyte distribution wid th standard deviationOrdered By: [facility] Jules on 05-31-2025 Erythrocyte distribution width (RBC) [Ratio] 55.1 fl High 35.1-43.9 [facility] Glomerular filtration rate ( GFR) estimation/1.73 sq m using serum, plasma, or whole bOrdered By: Duccarlee Vicente on 05-31-2025 GFR/1.73 sq M.predicted among non-blacks MDRD (S/P/Bld) [Vol rate/Area] 24 mL/min/{1.73_m2} Low >60 [facility] Comment on above: mL/min/1.73m2 CKD-EP I Creatinine Equation (2020) Hematocrit Auto (Bld) [Volum e fraction]Ordered By: Duccarlee Vicente on 05-31-2025 Hematocrit (Bld) [Volume fraction] 37.3 % Low 40-54 [facility] Hemoglobin measurementOrdere d By: Duccarlee Vicente on 05-31-2025 Hemoglobin (Bld) [Mass/Vol] 11.9 g/dL Low 13.0-16.5 [facility] Hyaline casts LM.LPF (Urine sed) [#/Area]Ordered By: Duccarlee Vicente on 05-31-2025 Hyaline casts (Urine sed) [#/Area] 0 /[LPF] 0-5 [facility] Immature granulocytes/100 WB C Auto (Bld)Ordered By: Duc Vicente on 05-31-2025 Immature granulocytes/100 WBC (Bld) 0.500 % 0.0-0.9 [facility] Comment on above: IG% - Immature Granu locytes (promyelocytes, myelocytes and metamyelocytes) > 1% indicates that a LEFT SHIFT is Present. Ketones Test strip Ql (U)Ord ered By: Duc Vicente on 05-31-2025 Ketones Ql (U) Negative Negative [facility] Laboratory - Chemistry and C hemistry - challengeOrdered By: Duc Vicente on 05-31-2025 AST [Catalytic activity/Vol] 27 U/L <38 [facility] Lactic acid measurementOrder ed By: Duc Vicente on 05-31-2025 Lactate [Moles/Vol] 1.7 mmol/L 0.0-2.0 [facility] MCV (mean corpuscular volume ) determinationOrdered By: Duc Vicente on 05-31-2025 MCV (RBC) [Entitic vol] 101.6 fL High 80-94 [facility] Mean corpuscular hemoglobin (MCH) determinationOrdered By: Duc Vicente on 05-31-2025 MCH (RBC) [Entitic mass] 32.4 pg High 27.0-32.0 [facility] Mean corpuscular hemoglobin concentration (MCHC) determinationOrdered By: Duc Vicente on 05-31-2025 MCHC (RBC) [Mass/Vol] 31.9 g/dL Low 32-36 [facility] Mean platelet volume determi nationOrdered By: Duc Vicente on 05-31-2025 Platelet mean volume (Bld) [Entitic vol] 11.9 fL 6.2-12.0 [facility] Measurement, pHOrdered By: Joe Vicente on 05-31-2025 pH (Unsp spec) 7.41 [pH] 7.35-7.45 [facility] Microscopic analysis of urin e for red blood cells (RBC)Ordered By: Duc Vicente on 05-31-2025 Microscopic analysis of urine for red blood cells (RBC) 0-5 SEEN /hpf 0-5 [facility] Monocyte percentageOrdered B y: Duc Vicente on 05-31-2025 Monocytes/100 WBC (Bld) 8.5 % 0-10 [facility] Mucus LM Ql (Urine sed)Order ed By: Duc Vicente on 05-31-2025 Mucus Ql (Urine sed) RARE /hpf [facility] Neutrophil percentageOrdered By: Duc Vicente on 05-31-2025 Neutrophils/100 WBC (Bld) 58.3 % 47-70 [facility] Nitrite Test strip Ql (U)Ord ered By: Duc Vicente on 05-31-2025 Nitrite Ql (U) Negative Negative [facility] No Panel InformationOrdered By: Duc Vicente on 05-31-2025 Blood Gas Sample Site R [facility] Blood Gas Specimen Type ART [facility] Blood Gas Vent Mode Not entered [facility] Oxygen Delivery Device Cannula [facility] ART [facility] R [facility] Not entered [facility] Cannula [facility] 27 U/L <38 [facility] Nucleated red blood cell per centageOrdered By: Duc Vicente on 05-31-2025 Nucleated RBC/100 WBC (Bld) [Ratio] 0 % 0-5 [facility] Platelet countOrdered By: Cherie Vicente on 05-31-2025 Platelets (Bld) [#/Vol] 110 10*3/uL Low 150-450 [facility] Potassium measurement (mass/ volume)Ordered By: Duc Vicente on 05-31-2025 Potassium (Unsp spec) [Mass/Vol] 4.9 mmol/L 3.3-5.1 [facility] Protein Test strip Ql (U)Ord ered By: Duc Vicente on 05-31-2025 Protein Ql (U) 100 mg/dl High Negative [facility] RBC Auto (Bld) [#/Vol]Ordere d By: Duc Vicente on 05-31-2025 RBC (Bld) [#/Vol] 3.67 10*6/uL Low 4.6-6.2 [facility] Serum creatinine measurement (mass/volume)Ordered By: Duc Vicente on 05-31-2025 Creatinine [Mass/Vol] 2.54 mg/dL High 0.70-1.20 [facility] Serum globulin measurementOr dered By: Duc Vicente on 05-31-2025 Globulin (S) [Mass/Vol] 3.6 g/dL 2.2-4.2 [facility] Serum glucose measurement (m ass/volume)Ordered By: Duc Vicente on 05-31-2025 Glucose [Mass/Vol] 116 mg/dL High 70-99 [facility] Serum or plasma alanine irving otransferase (ALT) measurementOrdered By: Duc Vicente on 05-31-2025 ALT [Catalytic activity/Vol] 12 U/L <47 [facility] Serum or plasma albumin aubree urement (mass/volume)Ordered By: Duccarlee Vicente on 05-31-2025 Albumin [Mass/Vol] 4.0 g/dL 3.4-4.8 [facility] Serum or plasma albumin/glob ulin mass ratioOrdered By: Duccarlee Vicente on 05-31-2025 Albumin/Globulin [Mass ratio] 1.1 {ratio} 0.9-2.4 [facility] Serum or plasma alkaline tamiko sphatase measurementOrdered By: Duccarlee Vicente on 05-31-2025 ALP [Catalytic activity/Vol] 208 U/L High 40-129 [facility] Serum or plasma calcium aubree urement (mass/volume)Ordered By: Duc Vicente on 05-31-2025 Calcium [Mass/Vol] 9.6 mg/dL 7.6-11.0 [facility] Serum or plasma urea nitroge n measurement (mass/volume)Ordered By: Duc Vicente on 05-31-2025 Urea nitrogen [Mass/Vol] 54 mg/dL High 4-19 [facility] Sodium levelOrdered By: Duc Vicente on 05-31-2025 Sodium [Moles/Vol] 142 mmol/L 133-145 [facility] Squamous epithelial cells de tection in urine sediment by light microscopyOrdered By: Duc Vicente on 05-31-2025 Epithelial cells.squamous LM Ql (Urine sed) 0 SEEN /hpf 0-5 [facility] Total carbon dioxide measure mentOrdered By: Duc Vicente on 05-31-2025 CO2 [Moles/Vol] 25 mmol/L [facility] Total proteinOrdered By: Duc Vicente on 05-31-2025 Protein [Mass/Vol] 7.6 g/dL 5.9-8.4 [facility] Urine clarityOrdered By: Duc Vicente on 05-31-2025 Clarity (U) Clear Clear [facility] Urine color determinationOrd ered By: Duc Vicente on 05-31-2025 Color (U) Yellow Yellow [facility] Urine glucose detectionOrder ed By: Duc Vicente on 05-31-2025 Glucose Ql (U) Normal mg/dl Normal [facility] Urine leukocyte esterase det ection by dipstickOrdered By: Duc Vicente on 05-31-2025 Leukocyte esterase Test strip Ql (U) Negative Negative [facility] Urine pHOrdered By: Duc encinas on 05-31-2025 pH (U) 5.0 [pH] 5.0 - 8.0 [facility] Urine sediment bacteria coun t by microscopy (number/high power field)Ordered By: Duc Vicente on 05-31-2025 Bacteria LM.HPF (Urine sed) [#/Area] RARE /hpf None Seen [facility] Urine specific gravity measu rementOrdered By: Duc Vicente on 05-31-2025 Specific gravity (U) [Rel density] 1.015 1.002-1.030 [facility] Urine urobilinogen measureme ntOrdered By: Duc Vicente on 05-31-2025 Urobilinogen Ql (U) Normal mg/dl Normal [facility] White blood cell (WBC) count Ordered By: Duc Vicente on 05-31-2025 WBC (Bld) [#/Vol] 6.0 10*3/uL 4.4-11.0 [facility] White blood cell countOrdere d By: Duc Vicente on 05-31-2025 White blood cell count 0-5 SEEN /hpf 0-5 [facility] Absolute lymphocyte countOrd ered By: Pepe Au on 05-22-2025 Lymphocytes Auto (Unsp spec) [#/Vol] 1.86 10*3/uL 0.83-4.51 [facility] Absolute neutrophil countOrd ered By: Pepe Au on 05-22-2025 Neutrophils (Bld) [#/Vol] 4.3 10*3/uL 2.0-7.7 [facility] Anion gap in Serum or Plasma Ordered By: Toñito Espino on 05-22-2025 Anion gap [Moles/Vol] 15 mmol/L 5-15 [facility] Automated lymphocyte count a s percentage of total leukocytesOrdered By: Pepe Au on 05-22-2025 Lymphocytes/100 WBC Auto (Unsp spec) 27.0 % - [facility] BUN/creatinine ratioOrdered By: Toñito Espino on 05-22-2025 Urea nitrogen/Creatinine [Mass ratio] 18.4 mg/mg 10- [facility] Basophil percentageOrdered B y: Pepe Au on 05-22-2025 Basophils/100 WBC (Bld) 0.4 % 0-1 [facility] Bilirubin, totalOrdered By: Toñito Espino on 05-22-2025 Bilirubin [Mass/Vol] 0.77 mg/dL 0.00-1.30 [facility] Calculated very low density lipoprotein (VLDL) cholesterol measurementOrdered By: Toñito Espino on 05-22-2025 Calculated very low density lipoprotein (VLDL) cholesterol measurement 23 mg/dL [facility] Carbon dioxide, total [Moles /volume] in Central venous bloodOrdered By: Toñito Espino on 05-22-2025 CO2 [Moles/Vol] 19.3 mmol/L Low 21.0-32.0 [facility] Chloride assayOrdered By: Vicente Espino on 05-22-2025 Chloride [Moles/Vol] 108 mmol/L 98-108 [facility] Eosinophil percentageOrdered By: Pepe Au on 05-22-2025 Eosinophils/100 WBC (Bld) 1.5 % 0-5 [facility] Erythrocyte distribution wid th ratioOrdered By: Pepe Au on 05-22-2025 Erythrocyte distribution width (RBC) [Ratio] 15.2 % High 11.6-14.6 [facility] Erythrocyte distribution wid th standard deviationOrdered By: Pepe Au on 05-22-2025 Erythrocyte distribution width (RBC) [Ratio] 56.1 fl High 35.1-43.9 [facility] Glomerular filtration rate ( GFR) estimation/1.73 sq m using serum, plasma, or whole bOrdered By: Toñito Espino on 05-22-2025 GFR/1.73 sq M.predicted among non-blacks MDRD (S/P/Bld) [Vol rate/Area] 25 mL/min/{1.73_m2} Low >60 [facility] Comment on above: mL/min/1.73m2 CKD-EP I Creatinine Equation (2020) Hematocrit Auto (Bld) [Volum e fraction]Ordered By: Pepe Au on 05-22-2025 Hematocrit (Bld) [Volume fraction] 38.0 % Low 40-54 [facility] Hemoglobin A1c percentageOrd ered By: Toñito Espino on 05-22-2025 HbA1c (Bld) [Mass fraction] 5.7 % <5.7 [facility] Comment on above: Normal < 5.7 % Predi abetic 5.7 - 6.4 % Diabetic >or= 6.5 % Please note range changes. Hemoglobin measurementOrdere d By: Pepe Au on 05-22-2025 Hemoglobin (Bld) [Mass/Vol] 12.2 g/dL Low 13.0-16.5 [facility] Immature granulocytes/100 WB C Auto (Bld)Ordered By: Pepe Au on 05-22-2025 Immature granulocytes/100 WBC (Bld) 0.400 % 0.0-0.9 [facility] Comment on above: IG% - Immature Granu locytes (promyelocytes, myelocytes and metamyelocytes) > 1% indicates that a LEFT SHIFT is Present. Iron measurement (mass/mass) Ordered By: Pepe Au on 05-22-2025 Iron (Unsp spec) [Mass/Mass] 72 ug/dL 65-175 [facility] LDL calc ser/plasOrdered By: Toñito Espino on 05-22-2025 Cholesterol in LDL [Mass/Vol] 80 mg/dL [facility] Comment on above: Swduuhtysv=077-196 m g/dL & Higher Vkjg=534 mg/dL or greater Laboratory - Chemistry and C hemistry - challengeOrdered By: Toñito Espino on 05-22-2025 AST [Catalytic activity/Vol] 26 U/L <38 [facility] MCV (mean corpuscular volume ) determinationOrdered By: Pepe Au on 05-22-2025 MCV (RBC) [Entitic vol] 101.3 fL High 80-94 [facility] Mean corpuscular hemoglobin (MCH) determinationOrdered By: Pepe Au on 05-22-2025 MCH (RBC) [Entitic mass] 32.5 pg High 27.0-32.0 [facility] Mean corpuscular hemoglobin concentration (MCHC) determinationOrdered By: Pepe Au on 05-22-2025 MCHC (RBC) [Mass/Vol] 32.1 g/dL 32-36 [facility] Mean platelet volume determi nationOrdered By: Pepe Au on 05-22-2025 Platelet mean volume (Bld) [Entitic vol] 11.0 fL 6.2-12.0 [facility] Monocyte percentageOrdered B y: Pepe Au on 05-22-2025 Monocytes/100 WBC (Bld) 8.0 % 0-10 [facility] Neutrophil percentageOrdered By: Pepe Au on 05-22-2025 Neutrophils/100 WBC (Bld) 62.7 % 47-70 [facility] No Panel InformationOrdered By: Pepe Au on 05-22-2025 Unsaturated Iron Binding Capacity 186 ug/dL Low 228-428 [facility] 186 ug/dL Low 228-428 [facility] No Panel InformationOrdered By: Toñito Espino on 05-22-2025 26 U/L <38 [facility] Nucleated red blood cell per centageOrdered By: Pepe Au on 05-22-2025 Nucleated RBC/100 WBC (Bld) [Ratio] 0 % 0-5 [facility] Platelet countOrdered By: Chaim Au on 05-22-2025 Platelets (Bld) [#/Vol] 101 10*3/uL Low 150-450 [facility] Potassium measurement (mass/ volume)Ordered By: Toñito Espino on 05-22-2025 Potassium (Unsp spec) [Mass/Vol] 5.1 mmol/L 3.3-5.1 [facility] RBC Auto (Bld) [#/Vol]Ordere d By: Pepe Au on 05-22-2025 RBC (Bld) [#/Vol] 3.75 10*6/uL Low 4.6-6.2 [facility] Screening total cholesterol/ high density lipoprotein (HDL) cholesterol ratioOrdered By: Toñito Espino on 05-22-2025 Cholesterol.total/Choles terol in HDL [Mass ratio] 3.65 {ratio} [facility] Serum creatinine measurement (mass/volume)Ordered By: Toñito Espino on 05-22-2025 Creatinine [Mass/Vol] 2.44 mg/dL High 0.70-1.20 [facility] Serum globulin measurementOr dered By: Toñito Espino on 05-22-2025 Globulin (S) [Mass/Vol] 3.6 g/dL 2.2-4.2 [facility] Serum glucose measurement (m ass/volume)Ordered By: Toñito Espino on 05-22-2025 Glucose [Mass/Vol] 104 mg/dL High 70-99 [facility] Serum or plasma alanine irving otransferase (ALT) measurementOrdered By: Toñito Espino on 05-22-2025 ALT [Catalytic activity/Vol] 12 U/L <47 [facility] Serum or plasma albumin aubree urement (mass/volume)Ordered By: Toñito Espino on 05-22-2025 Albumin [Mass/Vol] 4.1 g/dL 3.4-4.8 [facility] Serum or plasma albumin/glob ulin mass ratioOrdered By: Toñito Espino on 05-22-2025 Albumin/Globulin [Mass ratio] 1.2 {ratio} 0.9-2.4 [facility] Serum or plasma alkaline tamiko sphatase measurementOrdered By: Toñito Espino on 05-22-2025 ALP [Catalytic activity/Vol] 192 U/L High 40-129 [facility] Serum or plasma calcium aubree urement (mass/volume)Ordered By: Toñito Espino on 05-22-2025 Calcium [Mass/Vol] 10.1 mg/dL 7.6-11.0 [facility] Serum or plasma cholesterol in HDL measurement (mass/volume)Ordered By: Toñito Espino on 05-22-2025 Cholesterol in HDL [Mass/Vol] 39 mg/dL Low >40 [facility] Comment on above: National Cholesterol Education Program (NCEP) guidelines:<40 mg/dL: Low HDL-cholesterol (major risk factor for CHD)>= 60 mg/dL: High HDL-cholesterol (negative risk factor for CHD)HDL-cholesterol is affected by a number of factors, e.g. smoking, exercise, hormones, sex and age. Serum or plasma cholesterol measurement (mass/volume)Ordered By: Toñito Espino on 05-22-2025 Cholesterol [Mass/Vol] 142 mg/dL <201 [facility] Comment on above: Cholesterol level, D esirable <200 mg/dLBorderline high cholesterol 200-239 mg/dLHigh cholesterol >=240 mg/dLRecommendations of the NCEP Adult Treatment Panel for the following risk-cutoff thresholds for the [place] population. Serum or plasma ferritin laurie surement (mass/volume)Ordered By: Pepe Au on 05-22-2025 Ferritin [Mass/Vol] 184 ng/mL 37-417 [facility] Serum or plasma iron saturat ion measurement (mass fraction)Ordered By: Pepe Au on 05-22-2025 Iron saturation [Mass fraction] 28.0 % 9-55 [facility] Serum or plasma urea nitroge n measurement (mass/volume)Ordered By: Toñito Espino on 05-22-2025 Urea nitrogen [Mass/Vol] 45 mg/dL High 4-19 [facility] Sodium levelOrdered By: Cornelio Espino on 05-22-2025 Sodium [Moles/Vol] 142 mmol/L 133-145 [facility] TSH DL <= 0.005 mIU/L QnOrde red By: Toñito Espino on 05-22-2025 TSH Qn 7.250 uIU/mL High 0.300-4.200 [facility] Total proteinOrdered By: Sujit Espino on 05-22-2025 Protein [Mass/Vol] 7.7 g/dL 5.9-8.4 [facility] Triglycerides measurementOrd ered By: Toñito Espino on 05-22-2025 Triglyceride [Mass/Vol] 115 mg/dL <199 [facility] Comment on above: The drugs N-Acetylcy steine and Metamizole may falsely depress this assay. Normal range: <150 mg/dLBorderline High: 150-199 mg/dLHigh: 200-499 mg/dLVery High: >500 mg/dL White blood cell (WBC) count Ordered By: Pepe Au on 05-22-2025 WBC (Bld) [#/Vol] 6.9 10*3/uL 4.4-11.0 [facility] Absolute lymphocyte countOrd ered By: Pepe Au on 04-25-2025 Lymphocytes Auto (Unsp spec) [#/Vol] 1.73 10*3/uL 0.83-4.51 [facility] Absolute neutrophil countOrd ered By: Pepe Au on 04-25-2025 Neutrophils (Bld) [#/Vol] 5.4 10*3/uL 2.0-7.7 [facility] Anion gap in Serum or Plasma Ordered By: Pepe Au on 04-25-2025 Anion gap [Moles/Vol] 13 mmol/L 5-15 [facility] Automated lymphocyte count a s percentage of total leukocytesOrdered By: Pepe Au on 04-25-2025 Lymphocytes/100 WBC Auto (Unsp spec) 22.3 % 19-41 [facility] BUN/creatinine ratioOrdered By: Pepe Au on 04-25-2025 Urea nitrogen/Creatinine [Mass ratio] 21.2 mg/mg High 10-20 [facility] Basophil percentageOrdered B y: Pepe Au on 04-25-2025 Basophils/100 WBC (Bld) 0.5 % 0-1 [facility] Carbon dioxide, total [Moles /volume] in Central venous bloodOrdered By: Pepe Au on 04-25-2025 CO2 [Moles/Vol] 21.1 mmol/L 21.0-32.0 [facility] Chloride assayOrdered By: Chaim Au on 04-25-2025 Chloride [Moles/Vol] 109 mmol/L High 98-108 [facility] Eosinophil percentageOrdered By: Pepe Au on 04-25-2025 Eosinophils/100 WBC (Bld) 1.3 % 0-5 [facility] Erythrocyte distribution wid th ratioOrdered By: Pepe Au on 04-25-2025 Erythrocyte distribution width (RBC) [Ratio] 15.1 % High 11.6-14.6 [facility] Erythrocyte distribution wid th standard deviationOrdered By: Pepe Au on 04-25-2025 Erythrocyte distribution width (RBC) [Ratio] 56.2 fl High 35.1-43.9 [facility] Glomerular filtration rate ( GFR) estimation/1.73 sq m using serum, plasma, or whole bOrdered By: Pepe Au on 04-25-2025 GFR/1.73 sq M.predicted among non-blacks MDRD (S/P/Bld) [Vol rate/Area] 25 mL/min/{1.73_m2} Low >60 [facility] Comment on above: mL/min/1.73m2 CKD-EP I Creatinine Equation (2020) Hematocrit Auto (Bld) [Volum e fraction]Ordered By: Pepe Au on 04-25-2025 Hematocrit (Bld) [Volume fraction] 34.1 % Low 40-54 [facility] Hemoglobin measurementOrdere d By: Pepe Au on 04-25-2025 Hemoglobin (Bld) [Mass/Vol] 10.9 g/dL Low 13.0-16.5 [facility] Immature granulocytes/100 WB C Auto (Bld)Ordered By: Pepe Au on 04-25-2025 Immature granulocytes/100 WBC (Bld) 0.300 % 0.0-0.9 [facility] Comment on above: IG% - Immature Granu locytes (promyelocytes, myelocytes and metamyelocytes) > 1% indicates that a LEFT SHIFT is Present. Iron measurement (mass/mass) Ordered By: Pepe Au on 04-25-2025 Iron (Unsp spec) [Mass/Mass] 68 ug/dL 65-175 [facility] MCV (mean corpuscular volume ) determinationOrdered By: Pepe Au on 04-25-2025 MCV (RBC) [Entitic vol] 101.2 fL High 80-94 [facility] Mean corpuscular hemoglobin (MCH) determinationOrdered By: Pepe Au on 04-25-2025 MCH (RBC) [Entitic mass] 32.3 pg High 27.0-32.0 [facility] Mean corpuscular hemoglobin concentration (MCHC) determinationOrdered By: Pepe Au on 04-25-2025 MCHC (RBC) [Mass/Vol] 32.0 g/dL 32-36 [facility] Mean platelet volume determi nationOrdered By: Pepe Au on 04-25-2025 Platelet mean volume (Bld) [Entitic vol] 10.6 fL 6.2-12.0 [facility] Monocyte percentageOrdered B y: Pepe Au on 04-25-2025 Monocytes/100 WBC (Bld) 6.2 % 0-10 [facility] Neutrophil percentageOrdered By: Pepe Au on 04-25-2025 Neutrophils/100 WBC (Bld) 69.4 % 47-70 [facility] No Panel InformationOrdered By: Pepe Au on 04-25-2025 Unsaturated Iron Binding Capacity 155 ug/dL Low 228-428 [facility] 155 ug/dL Low 228-428 [facility] Nucleated red blood cell per centageOrdered By: Pepe Au on 04-25-2025 Nucleated RBC/100 WBC (Bld) [Ratio] 0 % 0-5 [facility] Platelet countOrdered By: Chaim Au on 04-25-2025 Platelets (Bld) [#/Vol] 105 10*3/uL Low 150-450 [facility] Potassium measurement (mass/ volume)Ordered By: Pepe Au on 04-25-2025 Potassium (Unsp spec) [Mass/Vol] 5.2 mmol/L High 3.3-5.1 [facility] RBC Auto (Bld) [#/Vol]Ordere d By: Pepe Au on 04-25-2025 RBC (Bld) [#/Vol] 3.37 10*6/uL Low 4.6-6.2 [facility] Serum creatinine measurement (mass/volume)Ordered By: Pepe Au on 04-25-2025 Creatinine [Mass/Vol] 2.50 mg/dL High 0.70-1.20 [facility] Serum glucose measurement (m ass/volume)Ordered By: Pepe Au on 04-25-2025 Glucose [Mass/Vol] 131 mg/dL High 70-99 [facility] Serum or plasma albumin aubree urement (mass/volume)Ordered By: Pepe Au on 04-25-2025 Albumin [Mass/Vol] 3.8 g/dL 3.4-4.8 [facility] Serum or plasma calcium aubree urement (mass/volume)Ordered By: Pepe Au on 04-25-2025 Calcium [Mass/Vol] 9.9 mg/dL 7.6-11.0 [facility] Serum or plasma ferritin laurie surement (mass/volume)Ordered By: Pepe Au on 04-25-2025 Ferritin [Mass/Vol] 216 ng/mL 37-417 [facility] Serum or plasma iron saturat ion measurement (mass fraction)Ordered By: Pepe Au on 04-25-2025 Iron saturation [Mass fraction] 30.0 % 9-55 [facility] Comment on above: Previous reported re sult: 30.0 %Edited by: GWENDOLYN on 04/25/25:1554 Serum or plasma urea nitroge n measurement (mass/volume)Ordered By: Pepe Au on 04-25-2025 Urea nitrogen [Mass/Vol] 53 mg/dL High 4- [facility] Sodium levelOrdered By: Lety Au on 04-25-2025 Sodium [Moles/Vol] 143 mmol/L 133-145 [facility] White blood cell (WBC) count Ordered By: Pepe Au on 04-25-2025 WBC (Bld) [#/Vol] 7.8 10*3/uL 4.4-11.0 [facility] Absolute lymphocyte countOrd ered By: Pepe Au on 04-15-2025 Lymphocytes Auto (Unsp spec) [#/Vol] 1.38 10*3/uL 0.83-4.51 [facility] Absolute neutrophil countOrd ered By: Pepe Au on 04-15-2025 Neutrophils (Bld) [#/Vol] 5.0 10*3/uL 2.0-7.7 [facility] Anion gap in Serum or Plasma Ordered By: Pepe Au on 04-15-2025 Anion gap [Moles/Vol] 12 mmol/L 5-15 [facility] Automated lymphocyte count a s percentage of total leukocytesOrdered By: Pepe Au on 04-15-2025 Lymphocytes/100 WBC Auto (Unsp spec) 19.4 % 19-41 [facility] BUN/creatinine ratioOrdered By: Pepe Au on 04-15-2025 Urea nitrogen/Creatinine [Mass ratio] 20.4 mg/mg High 10-20 [facility] Basophil percentageOrdered B y: Pepe Au on 04-15-2025 Basophils/100 WBC (Bld) 0.6 % 0-1 [facility] Carbon dioxide, total [Moles /volume] in Central venous bloodOrdered By: Pepe Au on 04-15-2025 CO2 [Moles/Vol] 21.4 mmol/L 21.0-32.0 [facility] Chloride assayOrdered By: Chaim Au on 04-15-2025 Chloride [Moles/Vol] 108 mmol/L 98-108 [facility] Eosinophil percentageOrdered By: Pepe Au on 04-15-2025 Eosinophils/100 WBC (Bld) 2.7 % 0-5 [facility] Erythrocyte distribution wid th ratioOrdered By: Pepe Au on 04-15-2025 Erythrocyte distribution width (RBC) [Ratio] 15.1 % High 11.6-14.6 [facility] Erythrocyte distribution wid th standard deviationOrdered By: Pepe Au on 04-15-2025 Erythrocyte distribution width (RBC) [Ratio] 56.5 fl High 35.1-43.9 [facility] Glomerular filtration rate ( GFR) estimation/1.73 sq m using serum, plasma, or whole bOrdered By: Pepe Au on 04-15-2025 GFR/1.73 sq M.predicted among non-blacks MDRD (S/P/Bld) [Vol rate/Area] 23 mL/min/{1.73_m2} Low >60 [facility] Comment on above: mL/min/1.73m2 CKD-EP I Creatinine Equation (2020) Hematocrit Auto (Bld) [Volum e fraction]Ordered By: Pepe Au on 04-15-2025 Hematocrit (Bld) [Volume fraction] 34.5 % Low 40-54 [facility] Hemoglobin measurementOrdere d By: Pepe Au on 04-15-2025 Hemoglobin (Bld) [Mass/Vol] 10.9 g/dL Low 13.0-16.5 [facility] Immature granulocytes/100 WB C Auto (Bld)Ordered By: Pepe Au on 04-15-2025 Immature granulocytes/100 WBC (Bld) 0.400 % 0.0-0.9 [facility] Comment on above: IG% - Immature Granu locytes (promyelocytes, myelocytes and metamyelocytes) > 1% indicates that a LEFT SHIFT is Present. Iron measurement (mass/mass) Ordered By: Pepe Au on 04-15-2025 Iron (Unsp spec) [Mass/Mass] 70 ug/dL 65-175 [facility] MCV (mean corpuscular volume ) determinationOrdered By: Pepe Au on 04-15-2025 MCV (RBC) [Entitic vol] 101.2 fL High 80-94 [facility] Mean corpuscular hemoglobin (MCH) determinationOrdered By: Pepe Au on 04-15-2025 MCH (RBC) [Entitic mass] 32.0 pg 27.0-32.0 [facility] Mean corpuscular hemoglobin concentration (MCHC) determinationOrdered By: Pepe Au on 04-15-2025 MCHC (RBC) [Mass/Vol] 31.6 g/dL Low 32-36 [facility] Mean platelet volume determi nationOrdered By: Pepe Au on 04-15-2025 Platelet mean volume (Bld) [Entitic vol] 11.7 fL 6.2-12.0 [facility] Monocyte percentageOrdered B y: Pepe Au on 04-15-2025 Monocytes/100 WBC (Bld) 6.6 % 0-10 [facility] Neutrophil percentageOrdered By: Pepe Au on 04-15-2025 Neutrophils/100 WBC (Bld) 70.3 % High 47-70 [facility] No Panel InformationOrdered By: Pepe Au on 04-15-2025 Unsaturated Iron Binding Capacity 163 ug/dL Low 228-428 [facility] 163 ug/dL Low 228-428 [facility] Nucleated red blood cell per centageOrdered By: Pepe Au on 04-15-2025 Nucleated RBC/100 WBC (Bld) [Ratio] 0 % 0-5 [facility] Platelet countOrdered By: Chaim Au on 04-15-2025 Platelets (Bld) [#/Vol] 112 10*3/uL Low 150-450 [facility] Potassium measurement (mass/ volume)Ordered By: Pepe Au on 04-15-2025 Potassium (Unsp spec) [Mass/Vol] 4.8 mmol/L 3.3-5.1 [facility] RBC Auto (Bld) [#/Vol]Ordere d By: Pepe Au on 04-15-2025 RBC (Bld) [#/Vol] 3.41 10*6/uL Low 4.6-6.2 [facility] Random urine creatinine aubree urement (mass/volume)Ordered By: Pepe Au on 04-15-2025 Creatinine Unsp time (U) [Mass/Vol] 89.70 mg/dL 39.00-259.00 [facility] Serum creatinine measurement (mass/volume)Ordered By: Pepe Au on 04-15-2025 Creatinine [Mass/Vol] 2.63 mg/dL High 0.70-1.20 [facility] Serum glucose measurement (m ass/volume)Ordered By: Pepe Au on 04-15-2025 Glucose [Mass/Vol] 139 mg/dL High 70-99 [facility] Serum or plasma albumin aubree urement (mass/volume)Ordered By: Pepe Au on 04-15-2025 Albumin [Mass/Vol] 3.9 g/dL 3.4-4.8 [facility] Serum or plasma calcium aubree urement (mass/volume)Ordered By: Pepe Au on 04-15-2025 Calcium [Mass/Vol] 9.3 mg/dL 7.6-11.0 [facility] Serum or plasma ferritin laurie surement (mass/volume)Ordered By: Pepe Au on 04-15-2025 Ferritin [Mass/Vol] 186 ng/mL 37-417 [facility] Serum or plasma iron saturat ion measurement (mass fraction)Ordered By: Pepe Au on 04-15-2025 Iron saturation [Mass fraction] 30.0 % 9-55 [facility] Serum or plasma urea nitroge n measurement (mass/volume)Ordered By: Pepe Au on 04-15-2025 Urea nitrogen [Mass/Vol] 54 mg/dL High 4-19 [facility] Serum or plasma uric acid me asurement (mass/volume)Ordered By: Pepe Au on 04-15-2025 Urate [Mass/Vol] 5.6 mg/dL 3.5-7.2 [facility] Comment on above: The drugs N-Acetylcy steine and Metamizole may falsely depress this assay. Sodium levelOrdered By: Lety Au on 04-15-2025 Sodium [Moles/Vol] 141 mmol/L 133-145 [facility] Urine protein measurement (m ass/volume)Ordered By: Pepe Au on 04-15-2025 Protein (U) [Mass/Vol] 63.0 mg/dL High 0.0-12.0 [facility] Urine protein/creatinine mas s ratioOrdered By: Pepe Au on 04-15-2025 Protein/Creatinine (U) [Mass ratio] 702 mg/g CRE High 0-200 [facility] White blood cell (WBC) count Ordered By: Pepe Au on 04-15-2025 WBC (Bld) [#/Vol] 7.1 10*3/uL 4.4-11.0 [facility] Absolute lymphocyte countOrd ered By: Pepe Au on 03-28-2025 Lymphocytes Auto (Unsp spec) [#/Vol] 1.95 10*3/uL 0.83-4.51 [facility] Absolute neutrophil countOrd ered By: Pepe Au on 03-28-2025 Neutrophils (Bld) [#/Vol] 5.5 10*3/uL 2.0-7.7 [facility] Anion gap in Serum or Plasma Ordered By: Pepe Au on 03-28-2025 Anion gap [Moles/Vol] 13 mmol/L 5-15 [facility] Automated lymphocyte count a s percentage of total leukocytesOrdered By: Pepe Au on 03-28-2025 Lymphocytes/100 WBC Auto (Unsp spec) 23.7 % 19-41 [facility] BUN/creatinine ratioOrdered By: Pepe Au on 03-28-2025 Urea nitrogen/Creatinine [Mass ratio] 20.7 mg/mg High 10-20 [facility] Basophil percentageOrdered B y: Pepe Au on 03-28-2025 Basophils/100 WBC (Bld) 0.5 % 0-1 [facility] Carbon dioxide, total [Moles /volume] in Central venous bloodOrdered By: Pepe Au on 03-28-2025 CO2 [Moles/Vol] 21.1 mmol/L 21.0-32.0 [facility] Chloride assayOrdered By: Chaim Au on 03-28-2025 Chloride [Moles/Vol] 108 mmol/L 98-108 [facility] Eosinophil percentageOrdered By: Pepe Au on 03-28-2025 Eosinophils/100 WBC (Bld) 1.9 % 0-5 [facility] Erythrocyte distribution wid th ratioOrdered By: Pepe Au on 03-28-2025 Erythrocyte distribution width (RBC) [Ratio] 14.6 % 11.6-14.6 [facility] Erythrocyte distribution wid th standard deviationOrdered By: Pepe Au on 03-28-2025 Erythrocyte distribution width (RBC) [Ratio] 53.0 fl High 35.1-43.9 [facility] Glomerular filtration rate ( GFR) estimation/1.73 sq m using serum, plasma, or whole bOrdered By: Pepe Au on 03-28-2025 GFR/1.73 sq M.predicted among non-blacks MDRD (S/P/Bld) [Vol rate/Area] 24 mL/min/{1.73_m2} Low >60 [facility] Comment on above: mL/min/1.73m2 CKD-EP I Creatinine Equation (2020) Hematocrit Auto (Bld) [Volum e fraction]Ordered By: Pepe Au on 03-28-2025 Hematocrit (Bld) [Volume fraction] 35.2 % Low 40-54 [facility] Hemoglobin measurementOrdere d By: Pepe Au on 03-28-2025 Hemoglobin (Bld) [Mass/Vol] 11.2 g/dL Low 13.0-16.5 [facility] Immature granulocytes/100 WB C Auto (Bld)Ordered By: Pepe Au on 03-28-2025 Immature granulocytes/100 WBC (Bld) 0.500 % 0.0-0.9 [facility] Comment on above: IG% - Immature Granu locytes (promyelocytes, myelocytes and metamyelocytes) > 1% indicates that a LEFT SHIFT is Present. Iron measurement (mass/mass) Ordered By: Pepe Au on 03-28-2025 Iron (Unsp spec) [Mass/Mass] 93 ug/dL 65-175 [facility] MCV (mean corpuscular volume ) determinationOrdered By: Pepe Au on 03-28-2025 MCV (RBC) [Entitic vol] 100.0 fL High 80-94 [facility] Mean corpuscular hemoglobin (MCH) determinationOrdered By: Pepe Au on 03-28-2025 MCH (RBC) [Entitic mass] 31.8 pg 27.0-32.0 [facility] Mean corpuscular hemoglobin concentration (MCHC) determinationOrdered By: Pepe Au on 03-28-2025 MCHC (RBC) [Mass/Vol] 31.8 g/dL Low 32-36 [facility] Mean platelet volume determi nationOrdered By: Pepe Au on 03-28-2025 Platelet mean volume (Bld) [Entitic vol] 11.5 fL 6.2-12.0 [facility] Monocyte percentageOrdered B y: Pepe Au on 03-28-2025 Monocytes/100 WBC (Bld) 6.6 % 0-10 [facility] Neutrophil percentageOrdered By: Pepe Au on 03-28-2025 Neutrophils/100 WBC (Bld) 66.8 % 47-70 [facility] No Panel InformationOrdered By: Pepe Au on 03-28-2025 Unsaturated Iron Binding Capacity 143 ug/dL Low 228-428 [facility] 143 ug/dL Low 228-428 [facility] Nucleated red blood cell per centageOrdered By: Pepe Au on 03-28-2025 Nucleated RBC/100 WBC (Bld) [Ratio] 0 % 0-5 [facility] Platelet countOrdered By: Chaim Au on 03-28-2025 Platelets (Bld) [#/Vol] 107 10*3/uL Low 150-450 [facility] Potassium measurement (mass/ volume)Ordered By: Pepe Au on 03-28-2025 Potassium (Unsp spec) [Mass/Vol] 5.3 mmol/L High 3.3-5.1 [facility] RBC Auto (Bld) [#/Vol]Ordere d By: Pepe Au on 03-28-2025 RBC (Bld) [#/Vol] 3.52 10*6/uL Low 4.6-6.2 [facility] Serum creatinine measurement (mass/volume)Ordered By: Pepe Au on 03-28-2025 Creatinine [Mass/Vol] 2.56 mg/dL High 0.70-1.20 [facility] Serum glucose measurement (m ass/volume)Ordered By: Pepe Au on 03-28-2025 Glucose [Mass/Vol] 130 mg/dL High 70-99 [facility] Serum or plasma albumin aubree urement (mass/volume)Ordered By: Pepe Au on 03-28-2025 Albumin [Mass/Vol] 4.0 g/dL 3.4-4.8 [facility] Serum or plasma calcium aubere urement (mass/volume)Ordered By: Pepe Au on 03-28-2025 Calcium [Mass/Vol] 10.6 mg/dL 7.6-11.0 [facility] Serum or plasma ferritin laurie surement (mass/volume)Ordered By: Pepe Au on 03-28-2025 Ferritin [Mass/Vol] 191 ng/mL 37-417 [facility] Serum or plasma iron saturat ion measurement (mass fraction)Ordered By: Pepe Au on 03-28-2025 Iron saturation [Mass fraction] 39.0 % 9-55 [facility] Comment on above: Previous reported re sult: 39.0 %Edited by: GWENDOLYN on 03/28/25:1546 Serum or plasma urea nitroge n measurement (mass/volume)Ordered By: Pepe Au on 03-28-2025 Urea nitrogen [Mass/Vol] 53 mg/dL High 4-19 [facility] Sodium levelOrdered By: Lety Au on 03-28-2025 Sodium [Moles/Vol] 142 mmol/L 133-145 [facility] White blood cell (WBC) count Ordered By: Pepe Au on 03-28-2025 WBC (Bld) [#/Vol] 8.2 10*3/uL 4.4-11.0 [facility] Absolute lymphocyte countOrd ered By: Pepe Au on 02-26-2025 Lymphocytes Auto (Unsp spec) [#/Vol] 1.72 10*3/uL 0.83-4.51 [facility] Absolute neutrophil countOrd ered By: Pepe Au on 02-26-2025 Neutrophils (Bld) [#/Vol] 5.7 10*3/uL 2.0-7.7 [facility] Anion gap in Serum or Plasma Ordered By: Pepe Au on 02-26-2025 Anion gap [Moles/Vol] 16 mmol/L High 5-15 [facility] Automated lymphocyte count a s percentage of total leukocytesOrdered By: Pepe Au on 02-26-2025 Lymphocytes/100 WBC Auto (Unsp spec) 21.0 % 19-41 [facility] BUN/creatinine ratioOrdered By: Pepe Au on 02-26-2025 Urea nitrogen/Creatinine [Mass ratio] 18.1 mg/mg 10-20 [facility] Basophil percentageOrdered B y: Pepe Au on 02-26-2025 Basophils/100 WBC (Bld) 0.4 % 0-1 [facility] Calculated total iron bindin g capacityOrdered By: Pepe Au on 02-26-2025 Total Iron Binding Capacity 218 ug/dL Low 250-450 [facility] Carbon dioxide, total [Moles /volume] in Central venous bloodOrdered By: Pepe Au on 02-26-2025 CO2 [Moles/Vol] 19.8 mmol/L Low 21.0-32.0 [facility] Chloride assayOrdered By: Chaim Au on 02-26-2025 Chloride [Moles/Vol] 107 mmol/L 98-108 [facility] Eosinophil percentageOrdered By: Pepe Au on 02-26-2025 Eosinophils/100 WBC (Bld) 2.3 % 0-5 [facility] Erythrocyte distribution wid th (RBC) [Ratio]Ordered By: Pepe Au on 02-26-2025 Erythrocyte distribution width (RBC) [Entitic vol] 49.2 fL High 35.1-43.9 [facility] Erythrocyte distribution wid th ratioOrdered By: Pepe Au on 02-26-2025 Erythrocyte distribution width (RBC) [Ratio] 13.6 % 11.6-14.6 [facility] Erythrocyte distribution wid th standard deviationOrdered By: Pepe Au on 02-26-2025 Erythrocyte distribution width (RBC) [Ratio] 49.2 fl High 35.1-43.9 [facility] GFR/1.73 sq M.predicted henry g non-blacks MDRD (S/P/Bld) [Vol rate/Area]Ordered By: Pepe Au on 02-26-2025 Estimated GFR (MDRD) Non-Af Amer 25 Low >60 [facility] Comment on above: mL/min/1.73m2 CKD-EP I Creatinine Equation (2020) Glomerular filtration rate ( GFR) estimation/1.73 sq m using serum, plasma, or whole bOrdered By: Pepe Au on 02-26-2025 GFR/1.73 sq M.predicted among non-blacks MDRD (S/P/Bld) [Vol rate/Area] 25 mL/min/{1.73_m2} Low >60 [facility] Comment on above: mL/min/1.73m2 CKD-EP I Creatinine Equation (2020) Hematocrit Auto (Bld) [Volum e fraction]Ordered By: Pepe Au on 02-26-2025 Hematocrit (Bld) [Volume fraction] 35.4 % Low 40-54 [facility] Hemoglobin measurementOrdere d By: Pepe Au on 02-26-2025 Hemoglobin (Bld) [Mass/Vol] 11.3 g/dL Low 13.0-16.5 [facility] Immature granulocytes/100 WB C Auto (Bld)Ordered By: Pepe Au on 02-26-2025 Immature granulocytes/100 WBC (Bld) 0.200 % 0.0-0.9 [facility] Comment on above: IG% - Immature Granu locytes (promyelocytes, myelocytes and metamyelocytes) > 1% indicates that a LEFT SHIFT is Present. Iron (Unsp spec) [Mass/Mass] Ordered By: Pepe Au on 02-26-2025 Iron [Mass/Vol] 75 ug/dL 65-175 [facility] Iron measurement (mass/mass) Ordered By: Pepe Au on 02-26-2025 Iron (Unsp spec) [Mass/Mass] 75 ug/dL 65-175 [facility] Iron saturation [Mass fracti on]Ordered By: Pepe Au on 02-26-2025 Iron Saturation 34.4 % 9-55 [facility] Comment on above: Previous reported re sult: 34.0 %Edited by: JUSTIN on 02/26/25:1611 AMENDED REPORT 02/26/25 1611 IRON SATURATION previously reported as: 34.0 % Lymphocytes Auto (Unsp spec) [#/Vol]Ordered By: Pepe Au on 02-26-2025 Lymphocytes (Bld) [#/Vol] 1.72 10*3/uL 0.83-4.51 [facility] Lymphocytes/100 WBC Auto (Un sp spec)Ordered By: Pepe Au on 02-26-2025 Lymphocytes/100 WBC (Bld) 21.0 % 19-41 [facility] MCV (mean corpuscular volume ) determinationOrdered By: Pepe Au on 02-26-2025 MCV (RBC) [Entitic vol] 98.9 fL High 80-94 [facility] Mean corpuscular hemoglobin (MCH) determinationOrdered By: Pepe Au on 02-26-2025 MCH (RBC) [Entitic mass] 31.6 pg 27.0-32.0 [facility] Mean corpuscular hemoglobin concentration (MCHC) determinationOrdered By: Pepe Au on 02-26-2025 MCHC (RBC) [Mass/Vol] 31.9 g/dL Low 32-36 [facility] Mean platelet volume determi nationOrdered By: Pepe Au on 02-26-2025 Platelet mean volume (Bld) [Entitic vol] 10.8 fL 6.2-12.0 [facility] Monocyte percentageOrdered B y: Pepe Au on 02-26-2025 Monocytes/100 WBC (Bld) 7.0 % 0-10 [facility] Neutrophil percentageOrdered By: Pepe Au on 02-26-2025 Neutrophils/100 WBC (Bld) 69.1 % 47-70 [facility] No Panel InformationOrdered By: Pepe Au on 02-26-2025 Unsaturated Iron Binding Capacity 143 ug/dL Low 228-428 [facility] 143 ug/dL Low 228-428 [facility] Nucleated red blood cell per centageOrdered By: Pepe Au on 02-26-2025 Nucleated RBC/100 WBC (Bld) [Ratio] 0 % 0-5 [facility] PTH intactOrdered By: Paula Au on 02-26-2025 Parathyroid Hormone (Intact) 49 pg/mL 11-61 [facility] Platelet countOrdered By: Chaim Au on 02-26-2025 Platelets (Bld) [#/Vol] 114 10*3/uL Low 150-450 [facility] Potassium (Unsp spec) [Mass/ Vol]Ordered By: Pepe Au on 02-26-2025 Potassium [Moles/Vol] 4.8 mmol/L 3.3-5.1 [facility] Potassium measurement (mass/ volume)Ordered By: Pepe Au on 02-26-2025 Potassium (Unsp spec) [Mass/Vol] 4.8 mmol/L 3.3-5.1 [facility] RBC Auto (Bld) [#/Vol]Ordere d By: Pepe Au on 02-26-2025 RBC (Bld) [#/Vol] 3.58 10*6/uL Low 4.6-6.2 [facility] Serum creatinine measurement (mass/volume)Ordered By: Pepe Au on 02-26-2025 Creatinine [Mass/Vol] 2.48 mg/dL High 0.70-1.20 [facility] Serum glucose measurement (m ass/volume)Ordered By: Pepe Au on 02-26-2025 Glucose [Mass/Vol] 136 mg/dL High 70-99 [facility] Serum or plasma albumin aubree urement (mass/volume)Ordered By: Pepe Au on 02-26-2025 Albumin [Mass/Vol] 3.7 g/dL 3.4-4.8 [facility] Serum or plasma calcium aubree urement (mass/volume)Ordered By: Pepe Au on 02-26-2025 Calcium [Mass/Vol] 9.0 mg/dL 7.6-11.0 [facility] Serum or plasma ferritin laurie surement (mass/volume)Ordered By: Pepe Au on 02-26-2025 Ferritin [Mass/Vol] 223 ng/mL 37-417 [facility] Serum or plasma iron saturat ion measurement (mass fraction)Ordered By: Pepe Au on 02-26-2025 Iron saturation [Mass fraction] 34.4 % 9-55 [facility] Comment on above: Previous reported re sult: 34.0 %Edited by: JUSTIN on 02/26/25:1611 AMENDED REPORT 02/26/25 1611 IRON SATURATION previously reported as: 34.0 % Serum or plasma urea nitroge n measurement (mass/volume)Ordered By: Pepe Au on 02-26-2025 Urea nitrogen [Mass/Vol] 45 mg/dL High 4-19 [facility] Serum phosphorus measurement Ordered By: Pepe Au on 02-26-2025 Phosphorus Level 3.2 mg/dL 2.7-4.5 [facility] Sodium levelOrdered By: Lety Au on 02-26-2025 Sodium [Moles/Vol] 143 mmol/L 133-145 [facility] White blood cell (WBC) count Ordered By: Pepe Au on 02-26-2025 WBC (Bld) [#/Vol] 8.2 10*3/uL 4.4-11.0 [facility] Absolute lymphocyte countOrd ered By: Pepe Au on 01-29-2025 Lymphocytes Auto (Unsp spec) [#/Vol] 1.70 10*3/uL 0.83-4.51 [facility] Absolute neutrophil countOrd ered By: Pepe Au on 01-29-2025 Neutrophils (Bld) [#/Vol] 8.4 10*3/uL High 2.0-7.7 [facility] Anion gap in Serum or Plasma Ordered By: Pepe Au on 01-29-2025 Anion gap [Moles/Vol] 14 mmol/L 5-15 [facility] Automated lymphocyte count a s percentage of total leukocytesOrdered By: Pepe Au on 01-29-2025 Lymphocytes/100 WBC Auto (Unsp spec) 15.5 % Low 19-41 [facility] BUN/creatinine ratioOrdered By: Pepe Au on 01-29-2025 Urea nitrogen/Creatinine [Mass ratio] 20.8 mg/mg High 10-20 [facility] Basophil percentageOrdered B y: Pepe Au on 01-29-2025 Basophils/100 WBC (Bld) 0.3 % 0-1 [facility] Calculated total iron bindin g capacityOrdered By: Pepe Au on 01-29-2025 Total Iron Binding Capacity 242 ug/dL Low 250-450 [facility] Carbon dioxide, total [Moles /volume] in Central venous bloodOrdered By: Pepe Au on 01-29-2025 CO2 [Moles/Vol] 21.4 mmol/L 21.0-32.0 [facility] Chloride assayOrdered By: Chaim Au on 01-29-2025 Chloride [Moles/Vol] 106 mmol/L 98-108 [facility] Eosinophil percentageOrdered By: Pepe Au on 01-29-2025 Eosinophils/100 WBC (Bld) 1.0 % 0-5 [facility] Erythrocyte distribution wid th (RBC) [Ratio]Ordered By: Pepe Au on 01-29-2025 Erythrocyte distribution width (RBC) [Entitic vol] 45.9 fL High 35.1-43.9 [facility] Erythrocyte distribution wid th ratioOrdered By: Pepe Au on 01-29-2025 Erythrocyte distribution width (RBC) [Ratio] 12.9 % 11.6-14.6 [facility] Erythrocyte distribution wid th standard deviationOrdered By: Pepe Au on 01-29-2025 Erythrocyte distribution width (RBC) [Ratio] 45.9 fl High 35.1-43.9 [facility] GFR/1.73 sq M.predicted henry g non-blacks MDRD (S/P/Bld) [Vol rate/Area]Ordered By: Pepe Au on 01-29-2025 Estimated GFR (MDRD) Non-Af Amer 24 Low >60 [facility] Comment on above: mL/min/1.73m2 CKD-EP I Creatinine Equation (2020) Glomerular filtration rate ( GFR) estimation/1.73 sq m using serum, plasma, or whole bOrdered By: Pepe Au on 01-29-2025 GFR/1.73 sq M.predicted among non-blacks MDRD (S/P/Bld) [Vol rate/Area] 24 mL/min/{1.73_m2} Low >60 [facility] Comment on above: mL/min/1.73m2 CKD-EP I Creatinine Equation (2020) Hematocrit Auto (Bld) [Volum e fraction]Ordered By: Pepe Au on 01-29-2025 Hematocrit (Bld) [Volume fraction] 37.9 % Low 40-54 [facility] Hemoglobin measurementOrdere d By: Pepe Au on 01-29-2025 Hemoglobin (Bld) [Mass/Vol] 12.3 g/dL Low 13.0-16.5 [facility] Immature granulocytes/100 WB C Auto (Bld)Ordered By: Pepe Au on 01-29-2025 Immature granulocytes/100 WBC (Bld) 0.400 % 0.0-0.9 [facility] Comment on above: IG% - Immature Granu locytes (promyelocytes, myelocytes and metamyelocytes) > 1% indicates that a LEFT SHIFT is Present. Iron (Unsp spec) [Mass/Mass] Ordered By: Pepe Au on 01-29-2025 Iron [Mass/Vol] 84 ug/dL 65-175 [facility] Iron measurement (mass/mass) Ordered By: Pepe Au on 01-29-2025 Iron (Unsp spec) [Mass/Mass] 84 ug/dL 65-175 [facility] Iron saturation [Mass fracti on]Ordered By: Pepe Au on 01-29-2025 Iron Saturation 35.0 % 15.0-55.0 [facility] Lymphocytes Auto (Unsp spec) [#/Vol]Ordered By: Pepe Au on 01-29-2025 Lymphocytes (Bld) [#/Vol] 1.70 10*3/uL 0.83-4.51 [facility] Lymphocytes/100 WBC Auto (Un sp spec)Ordered By: Pepe Au on 01-29-2025 Lymphocytes/100 WBC (Bld) 15.5 % Low 19-41 [facility] MCV (mean corpuscular volume ) determinationOrdered By: Pepe Au on 01-29-2025 MCV (RBC) [Entitic vol] 98.2 fL High 80-94 [facility] Mean corpuscular hemoglobin (MCH) determinationOrdered By: Pepe Au on 01-29-2025 MCH (RBC) [Entitic mass] 31.9 pg 27.0-32.0 [facility] Mean corpuscular hemoglobin concentration (MCHC) determinationOrdered By: Pepe Au on 01-29-2025 MCHC (RBC) [Mass/Vol] 32.5 g/dL 32-36 [facility] Mean platelet volume determi nationOrdered By: Pepe Au on 01-29-2025 Platelet mean volume (Bld) [Entitic vol] 11.5 fL 6.2-12.0 [facility] Monocyte percentageOrdered B y: Pepe Au on 01-29-2025 Monocytes/100 WBC (Bld) 6.5 % 0-10 [facility] Neutrophil percentageOrdered By: Pepe Au on 01-29-2025 Neutrophils/100 WBC (Bld) 76.3 % High 47-70 [facility] No Panel InformationOrdered By: Pepe Au on 01-29-2025 Unsaturated Iron Binding Capacity 158 ug/dL Low 228-428 [facility] Nucleated red blood cell per centageOrdered By: Pepe Au on 01-29-2025 Nucleated RBC/100 WBC (Bld) [Ratio] 0 % 0-5 [facility] PTH intactOrdered By: Paula Au on 01-29-2025 Parathyroid Hormone (Intact) 30 pg/mL 11-61 [facility] Platelet countOrdered By: Chaim Au on 01-29-2025 Platelets (Bld) [#/Vol] 115 10*3/uL Low 150-450 [facility] Potassium (Unsp spec) [Mass/ Vol]Ordered By: Pepe Au on 01-29-2025 Potassium [Moles/Vol] 4.4 mmol/L 3.3-5.1 [facility] Potassium measurement (mass/ volume)Ordered By: Pepe Au on 01-29-2025 Potassium (Unsp spec) [Mass/Vol] 4.4 mmol/L 3.3-5.1 [facility] RBC Auto (Bld) [#/Vol]Ordere d By: Pepe Au on 01-29-2025 RBC (Bld) [#/Vol] 3.86 10*6/uL Low 4.6-6.2 [facility] Serum creatinine measurement (mass/volume)Ordered By: Pepe Au on 01-29-2025 Creatinine [Mass/Vol] 2.59 mg/dL High 0.70-1.20 [facility] Serum glucose measurement (m ass/volume)Ordered By: Pepe Au on 01-29-2025 Glucose [Mass/Vol] 110 mg/dL High 70-99 [facility] Serum or plasma albumin aubree urement (mass/volume)Ordered By: Pepe Au on 01-29-2025 Albumin [Mass/Vol] 4.0 g/dL 3.4-4.8 [facility] Serum or plasma calcium aubree urement (mass/volume)Ordered By: Pepe Au on 01-29-2025 Calcium [Mass/Vol] 9.8 mg/dL 7.6-11.0 [facility] Serum or plasma ferritin laurie surement (mass/volume)Ordered By: Pepe Au on 01-29-2025 Ferritin [Mass/Vol] 252 ng/mL 37-417 [facility] Serum or plasma iron saturat ion measurement (mass fraction)Ordered By: Pepe Au on 01-29-2025 Iron saturation [Mass fraction] 35.0 % 15.0-55.0 [facility] Serum or plasma urea nitroge n measurement (mass/volume)Ordered By: Pepe Au on 01-29-2025 Urea nitrogen [Mass/Vol] 54 mg/dL High 4-19 [facility] Serum phosphorus measurement Ordered By: Pepe Au on 01-29-2025 Phosphorus Level 3.1 mg/dL 2.7-4.5 [facility] Sodium levelOrdered By: Lety Au on 01-29-2025 Sodium [Moles/Vol] 141 mmol/L 133-145 [facility] White blood cell (WBC) count Ordered By: Pepe Au on 01-29-2025 WBC (Bld) [#/Vol] 11.0 10*3/uL 4.4-11.0 [facility] Absolute lymphocyte countOrd ered By: Pepe Au on 01-01-2025 Lymphocytes Auto (Unsp spec) [#/Vol] 1.90 10*3/uL 0.83-4.51 [facility] Absolute neutrophil countOrd ered By: Pepe Au on 01-01-2025 Neutrophils (Bld) [#/Vol] 5.0 10*3/uL 2.0-7.7 [facility] Automated lymphocyte count a s percentage of total leukocytesOrdered By: Pepe Au on 01-01-2025 Lymphocytes/100 WBC Auto (Unsp spec) 24.6 % 19-41 [facility] Basophil percentageOrdered B y: Pepe Au on 01-01-2025 Basophils/100 WBC (Bld) 0.5 % 0-1 [facility] Blood urea nitrogen (BUN)/cr eatinine ratioOrdered By: Pepe Au on 01-01-2025 Urea nitrogen/Creatinine [Mass ratio] 19.0 mg/mg 10-20 [facility] Carbon dioxide measurementOr dered By: Pepe Au on 01-01-2025 CO2 [Moles/Vol] 28.0 mmol/L 21.0-32.0 [facility] Chloride measurementOrdered By: Pepe Au on 01-01-2025 Chloride [Moles/Vol] 110 mmol/L High 98-107 [facility] Eosinophil percentageOrdered By: Pepe Au on 01-01-2025 Eosinophils/100 WBC (Bld) 2.3 % 0-5 [facility] Erythrocyte distribution wid th (RBC) [Ratio]Ordered By: Pepe Au on 01-01-2025 Erythrocyte distribution width (RBC) [Entitic vol] 49.0 fL High 35.1-43.9 [facility] Erythrocyte distribution wid th ratioOrdered By: Pepe Au on 01-01-2025 Erythrocyte distribution width (RBC) [Ratio] 13.2 % 11.6-14.6 [facility] Erythrocyte distribution wid th standard deviationOrdered By: Pepe Au on 01-01-2025 Erythrocyte distribution width (RBC) [Ratio] 49.0 fl High 35.1-43.9 [facility] Estimated glomerular filtrat ion rate (GFR) AmericanOrdered By: Pepe Au on 01-01-2025 Estimated GFR (MDRD) Amer 31 mL/min Low >60 [facility] Comment on above: GFR Calc Ferritin measurementOrdered By: Pepe Au on 01-01-2025 Ferritin [Mass/Vol] 152 ng/mL 26-388 [facility] Glomerular filtration rate ( GFR) estimationOrdered By: Pepe Au on 01-01-2025 Estimated GFR (MDRD) Non-Af Amer 25 mL/min Low >60 [facility] Comment on above: Non- GFR Calc GFR/1.73 sq M.predicted among non-blacks MDRD (S/P/Bld) [Vol rate/Area] 25 mL/min/{1.73_m2} Low >60 [facility] Comment on above: Non- GFR Calc Glucose measurementOrdered B y: Pepe Au on 01-01-2025 Glucose [Mass/Vol] 124 mg/dL High 74-106 [facility] Comment on above: Fasting Glucose resu lt from 100 to 125 mg/dL suggests IMPAIRED HOMEOSTASIS per A.D.A. criteria. Hematocrit Auto (Bld) [Volum e fraction]Ordered By: Pepe Au on 01-01-2025 Hematocrit (Bld) [Volume fraction] 35.8 % Low 40-54 [facility] Hemoglobin measurementOrdere d By: Pepe Au on 01-01-2025 Hemoglobin (Bld) [Mass/Vol] 11.5 g/dL Low 13.0-16.5 [facility] Immature granulocytes/100 WB C Auto (Bld)Ordered By: Pepe Au on 01-01-2025 Immature granulocytes/100 WBC (Bld) 0.400 % 0.0-0.9 [facility] Comment on above: IG% - Immature Granu locytes (promyelocytes, myelocytes and metamyelocytes) > 1% indicates that a LEFT SHIFT is Present. Iron (Unsp spec) [Mass/Mass] Ordered By: Pepe Au on 01-01-2025 Iron [Mass/Vol] 53 ug/dL Low 65-175 [facility] Iron measurement (mass/mass) Ordered By: Pepe Au on 01-01-2025 Iron (Unsp spec) [Mass/Mass] 53 ug/dL Low 65-175 [facility] Iron saturation [Mass fracti on]Ordered By: Pepe Au on 01-01-2025 Iron Saturation 25.1 % 15.0-55.0 [facility] Lymphocytes Auto (Unsp spec) [#/Vol]Ordered By: Pepe Au on 01-01-2025 Lymphocytes (Bld) [#/Vol] 1.90 10*3/uL 0.83-4.51 [facility] Lymphocytes/100 WBC Auto (Un sp spec)Ordered By: Pepe Au on 01-01-2025 Lymphocytes/100 WBC (Bld) 24.6 % 19-41 [facility] MCV (mean corpuscular volume ) determinationOrdered By: Pepe Au on 01-01-2025 MCV (RBC) [Entitic vol] 100.3 fL High 80-94 [facility] Mean corpuscular hemoglobin (MCH) determinationOrdered By: Pepe Au on 01-01-2025 MCH (RBC) [Entitic mass] 32.2 pg High 27.0-32.0 [facility] Mean corpuscular hemoglobin concentration (MCHC) determinationOrdered By: Pepe Au on 01-01-2025 MCHC (RBC) [Mass/Vol] 32.1 g/dL 32-36 [facility] Mean platelet volume determi nationOrdered By: Pepe Au on 01-01-2025 Platelet mean volume (Bld) [Entitic vol] 10.5 fL 6.2-12.0 [facility] Monocyte percentageOrdered B y: Pepe Au on 01-01-2025 Monocytes/100 WBC (Bld) 7.0 % 0-10 [facility] Neutrophil percentageOrdered By: Pepe Au on 01-01-2025 Neutrophils/100 WBC (Bld) 65.2 % 47-70 [facility] Nucleated red blood cell per centageOrdered By: Pepe Au on 01-01-2025 Nucleated RBC/100 WBC (Bld) [Ratio] 0 % 0-5 [facility] Phosphorus measurementOrdere d By: Pepe Au on 01-01-2025 Phosphorus Level 3.4 mg/dL 2.5-4.9 [facility] Platelet countOrdered By: Chaim Au on 01-01-2025 Platelets (Bld) [#/Vol] 105 10*3/uL Low 150-450 [facility] Potassium measurementOrdered By: Pepe Au on 01-01-2025 Potassium [Moles/Vol] 4.8 mmol/L 3.5-5.1 [facility] RBC Auto (Bld) [#/Vol]Ordere d By: Pepe Au on 01-01-2025 RBC (Bld) [#/Vol] 3.57 10*6/uL Low 4.6-6.2 [facility] Serum or plasma albumin aubree urement (mass/volume)Ordered By: Pepe Au on 01-01-2025 Albumin [Mass/Vol] 3.4 g/dL 3.2-5.0 [facility] Serum or plasma calcium aubree urement (mass/volume)Ordered By: Pepe Au on 01-01-2025 Calcium [Mass/Vol] 10.2 mg/dL High 8.5-10.1 [facility] Serum or plasma creatinine m easurement (mass/volume)Ordered By: Pepe Au on 01-01-2025 Creatinine [Mass/Vol] 2.58 mg/dL High 0.70-1.30 [facility] Comment on above: The validity of the calculated GFR & GFRAA in patients over 70 years has not been determined. Clinical correlation is essential. Serum or plasma iron saturat ion measurement (mass fraction)Ordered By: Pepe Au on 01-01-2025 Iron saturation [Mass fraction] 25.1 % 15.0-55.0 [facility] Serum or plasma urea nitroge n measurement (mass/volume)Ordered By: Pepe Au on 01-01-2025 Urea nitrogen [Mass/Vol] 49 mg/dL High 7-18 [facility] Sodium levelOrdered By: Lety Au on 01-01-2025 Sodium [Moles/Vol] 142 mmol/L 136-145 [facility] TIBCOrdered By: Pepe coley on 01-01-2025 Total Iron Binding Capacity 211 ug/dL Low 250-450 [facility] White blood cell (WBC) count Ordered By: Pepe Au on 01-01-2025 WBC (Bld) [#/Vol] 7.7 10*3/uL 4.4-11.0 [facility] Absolute neutrophil countOrd ered By: Pepe Au on 12-04-2024 Neutrophils (Bld) [#/Vol] 4.9 10*3/uL 2.0-7.7 [facility] Basophil percentageOrdered B y: Pepe Au on 12-04-2024 Basophils/100 WBC (Bld) 0.5 % 0-1 [facility] Blood urea nitrogen (BUN)/cr eatinine ratioOrdered By: Pepe Au on 12-04-2024 Urea nitrogen/Creatinine [Mass ratio] 18.9 mg/mg 10-20 [facility] Carbon dioxide measurementOr dered By: Pepe Au on 12-04-2024 CO2 [Moles/Vol] 24.0 mmol/L 21.0-32.0 [facility] Chloride measurementOrdered By: Pepe Au on 12-04-2024 Chloride [Moles/Vol] 116 mmol/L High 98-107 [facility] Eosinophil percentageOrdered By: Pepe Au on 12-04-2024 Eosinophils/100 WBC (Bld) 2.8 % 0-5 [facility] Erythrocyte distribution wid th (RBC) [Ratio]Ordered By: Pepe Au on 12-04-2024 Erythrocyte distribution width (RBC) [Entitic vol] 54.9 fL High 35.1-43.9 [facility] Erythrocyte distribution wid th ratioOrdered By: Pepe Au on 12-04-2024 Erythrocyte distribution width (RBC) [Ratio] 14.7 % High 11.6-14.6 [facility] Estimated glomerular filtrat ion rate (GFR) AmericanOrdered By: Pepe Au on 12-04-2024 Estimated GFR (MDRD) Amer 31 mL/min Low >60 [facility] Comment on above: GFR Calc Ferritin measurementOrdered By: Pepe Au on 12-04-2024 Ferritin [Mass/Vol] 140 ng/mL 26-388 [facility] Glomerular filtration rate ( GFR) estimationOrdered By: Pepe Au on 12-04-2024 Estimated GFR (MDRD) Non-Af Amer 26 mL/min Low >60 [facility] Comment on above: Non- GFR Calc Glucose measurementOrdered B y: Pepe Au on 12-04-2024 Glucose [Mass/Vol] 128 mg/dL High 74-106 [facility] Comment on above: Fasting Glucose resu lt greater than or equal to 126 mg/dL suggests DIABETES MELLITUS per A.D.A. criteria. Hematocrit Auto (Bld) [Volum e fraction]Ordered By: Pepe Au on 12-04-2024 Hematocrit (Bld) [Volume fraction] 36.7 % Low 40-54 [facility] Hemoglobin measurementOrdere d By: Pepe Au on 12-04-2024 Hemoglobin (Bld) [Mass/Vol] 11.6 g/dL Low 13.0-16.5 [facility] Immature granulocytes/100 WB C Auto (Bld)Ordered By: Pepe Au on 12-04-2024 Immature granulocytes/100 WBC (Bld) 0.400 % 0.0-0.9 [facility] Comment on above: IG% - Immature Granu locytes (promyelocytes, myelocytes and metamyelocytes) > 1% indicates that a LEFT SHIFT is Present. Iron (Unsp spec) [Mass/Mass] Ordered By: Pepe Au on 12-04-2024 Iron [Mass/Vol] 77 ug/dL 65-175 [facility] Iron saturation [Mass fracti on]Ordered By: Pepe Au on 12-04-2024 Iron Saturation 32.0 % 15.0-55.0 [facility] Lymphocytes Auto (Unsp spec) [#/Vol]Ordered By: Pepe Au on 12-04-2024 Lymphocytes (Bld) [#/Vol] 1.91 10*3/uL 0.83-4.51 [facility] Lymphocytes/100 WBC Auto (Un sp spec)Ordered By: Pepe Au on 12-04-2024 Lymphocytes/100 WBC (Bld) 25.4 % 19-41 [facility] MCV (mean corpuscular volume ) determinationOrdered By: Pepe Au on 12-04-2024 MCV (RBC) [Entitic vol] 101.7 fL High 80-94 [facility] Mean corpuscular hemoglobin (MCH) determinationOrdered By: Pepe Au on 12-04-2024 MCH (RBC) [Entitic mass] 32.1 pg High 27.0-32.0 [facility] Mean corpuscular hemoglobin concentration (MCHC) determinationOrdered By: Pepe Au on 12-04-2024 MCHC (RBC) [Mass/Vol] 31.6 g/dL Low 32-36 [facility] Mean platelet volume determi nationOrdered By: Pepe Au on 12-04-2024 Platelet mean volume (Bld) [Entitic vol] 10.7 fL 6.2-12.0 [facility] Monocyte percentageOrdered B y: Pepe Au on 12-04-2024 Monocytes/100 WBC (Bld) 6.4 % 0-10 [facility] Neutrophil percentageOrdered By: Pepe Au on 12-04-2024 Neutrophils/100 WBC (Bld) 64.5 % 47-70 [facility] Nucleated red blood cell per centageOrdered By: Pepe Au on 12-04-2024 Nucleated RBC/100 WBC (Bld) [Ratio] 0 % 0-5 [facility] Phosphorus measurementOrdere d By: Pepe Au on 12-04-2024 Phosphorus Level 3.2 mg/dL 2.5-4.9 [facility] Platelet countOrdered By: Chaim Au on 12-04-2024 Platelets (Bld) [#/Vol] 117 10*3/uL Low 150-450 [facility] Potassium measurementOrdered By: Pepe Au on 12-04-2024 Potassium [Moles/Vol] 5.0 mmol/L 3.5-5.1 [facility] RBC Auto (Bld) [#/Vol]Ordere d By: Pepe Au on 12-04-2024 RBC (Bld) [#/Vol] 3.61 10*6/uL Low 4.6-6.2 [facility] Serum or plasma albumin aubree urement (mass/volume)Ordered By: Pepe Au on 12-04-2024 Albumin [Mass/Vol] 3.5 g/dL 3.2-5.0 [facility] Serum or plasma calcium aubree urement (mass/volume)Ordered By: Pepe Au on 12-04-2024 Calcium [Mass/Vol] 9.6 mg/dL 8.5-10.1 [facility] Serum or plasma creatinine m easurement (mass/volume)Ordered By: Pepe Au on 12-04-2024 Creatinine [Mass/Vol] 2.54 mg/dL High 0.70-1.30 [facility] Comment on above: The validity of the calculated GFR & GFRAA in patients over 70 years has not been determined. Clinical correlation is essential. Serum or plasma urea nitroge n measurement (mass/volume)Ordered By: Pepe Au on 12-04-2024 Urea nitrogen [Mass/Vol] 48 mg/dL High 7-18 [facility] Sodium levelOrdered By: Lety Au on 12-04-2024 Sodium [Moles/Vol] 143 mmol/L 136-145 [facility] TIBCOrdered By: Pepe coley on 12-04-2024 Total Iron Binding Capacity 241 ug/dL Low 250-450 [facility] White blood cell (WBC) count Ordered By: Pepe Au on 12-04-2024 WBC (Bld) [#/Vol] 7.5 10*3/uL 4.4-11.0 [facility] Absolute neutrophil countOrd ered By: Pepe Au on 10-31-2024 Neutrophils (Bld) [#/Vol] 4.2 10*3/uL 2.0-7.7 [facility] Basophil percentageOrdered B y: Pepe Au on 10-31-2024 Basophils/100 WBC (Bld) 0.3 % 0-1 [facility] Blood urea nitrogen (BUN)/cr eatinine ratioOrdered By: Pepe uA on 10-31-2024 Urea nitrogen/Creatinine [Mass ratio] 27.8 mg/mg High 10-20 [facility] Carbon dioxide measurementOr dered By: Pepe Au on 10-31-2024 CO2 [Moles/Vol] 24.0 mmol/L 21.0-32.0 [facility] Chloride measurementOrdered By: Pepe Au on 10-31-2024 Chloride [Moles/Vol] 113 mmol/L High 98-107 [facility] [facility] Eosinophil percentageOrdered By: Pepe Au on 10-31-2024 Eosinophils/100 WBC (Bld) 4.2 % 0-5 [facility] Erythrocyte distribution wid th (RBC) [Ratio]Ordered By: Pepe Au on 10-31-2024 Erythrocyte distribution width (RBC) [Entitic vol] 51.4 fL High 35.1-43.9 [facility] Erythrocyte distribution wid th ratioOrdered By: Pepe Au on 10-31-2024 Erythrocyte distribution width (RBC) [Ratio] 14.3 % 11.6-14.6 [facility] Estimated glomerular filtrat ion rate (GFR) AmericanOrdered By: Pepe Au on 10-31-2024 Estimated GFR (MDRD) Amer 32 mL/min Low >60 [facility] Comment on above: GFR Calc Ferritin measurementOrdered By: Pepe Au on 10-31-2024 Ferritin [Mass/Vol] 176 ng/mL 26-388 [facility] Glomerular filtration rate ( GFR) estimationOrdered By: Pepe Au on 10-31-2024 Estimated GFR (MDRD) Non-Af Amer 26 mL/min Low >60 [facility] Comment on above: Non- GFR Calc Glucose measurementOrdered B y: Pepe Au on 10-31-2024 Glucose [Mass/Vol] 145 mg/dL High 74-106 [facility] Comment on above: Fasting Glucose resu lt greater than or equal to 126 mg/dL suggests DIABETES MELLITUS per A.D.A. criteria. Hematocrit Auto (Bld) [Volum e fraction]Ordered By: Pepe Au on 10-31-2024 Hematocrit (Bld) [Volume fraction] 33.6 % Low 40-54 [facility] Hemoglobin measurementOrdere d By: Pepe Au on 10-31-2024 Hemoglobin (Bld) [Mass/Vol] 10.9 g/dL Low 13.0-16.5 [facility] Immature granulocytes/100 WB C Auto (Bld)Ordered By: Pepe Au on 10-31-2024 Immature granulocytes/100 WBC (Bld) 0.600 % 0.0-0.9 [facility] Comment on above: IG% - Immature Granu locytes (promyelocytes, myelocytes and metamyelocytes) > 1% indicates that a LEFT SHIFT is Present. Intact parathyroid hormone ( iPTH) measurementOrdered By: Pepe Au on 10-31-2024 Parathyroid Hormone (Intact) 16.0 pg/mL Low 18.4-80.1 [facility] Iron (Unsp spec) [Mass/Mass] Ordered By: Pepe Au on 10-31-2024 Iron [Mass/Vol] 63 ug/dL Low 65-175 [facility] Iron saturation [Mass fracti on]Ordered By: Pepe Au on 10-31-2024 Iron Saturation 26.7 % 15.0-55.0 [facility] Lymphocytes Auto (Unsp spec) [#/Vol]Ordered By: Pepe Au on 10-31-2024 Lymphocytes (Bld) [#/Vol] 1.70 10*3/uL 0.83-4.51 [facility] Lymphocytes/100 WBC Auto (Un sp spec)Ordered By: Pepe Au on 10-31-2024 Lymphocytes/100 WBC (Bld) 25.4 % 19-41 [facility] MCV (mean corpuscular volume ) determinationOrdered By: Pepe Au on 10-31-2024 MCV (RBC) [Entitic vol] 99.4 fL High 80-94 [facility] Mean corpuscular hemoglobin (MCH) determinationOrdered By: Pepe Au on 10-31-2024 MCH (RBC) [Entitic mass] 32.2 pg High 27.0-32.0 [facility] Mean corpuscular hemoglobin concentration (MCHC) determinationOrdered By: Pepe Au on 10-31-2024 MCHC (RBC) [Mass/Vol] 32.4 g/dL 32-36 [facility] Mean platelet volume determi nationOrdered By: Pepe Au on 10-31-2024 Platelet mean volume (Bld) [Entitic vol] 10.8 fL 6.2-12.0 [facility] Monocyte percentageOrdered B y: Pepe Au on 10-31-2024 Monocytes/100 WBC (Bld) 6.4 % 0-10 [facility] Neutrophil percentageOrdered By: Pepe Au on 10-31-2024 Neutrophils/100 WBC (Bld) 63.1 % 47-70 [facility] Nucleated red blood cell per centageOrdered By: Pepe Au on 10-31-2024 Nucleated RBC/100 WBC (Bld) [Ratio] 0 % 0-5 [facility] Phosphorus measurementOrdere d By: Pepe Au on 10-31-2024 Phosphorus Level 3.5 mg/dL 2.5-4.9 [facility] Platelet countOrdered By: Chaim Au on 10-31-2024 Platelets (Bld) [#/Vol] 133 10*3/uL Low 150-450 [facility] Potassium measurementOrdered By: Pepe Au on 10-31-2024 Potassium [Moles/Vol] 4.4 mmol/L 3.5-5.1 [facility] RBC Auto (Bld) [#/Vol]Ordere d By: Pepe Au on 10-31-2024 RBC (Bld) [#/Vol] 3.38 10*6/uL Low 4.6-6.2 [facility] Serum or plasma albumin aubree urement (mass/volume)Ordered By: Pepe Au on 10-31-2024 Albumin [Mass/Vol] 3.4 g/dL 3.2-5.0 [facility] Serum or plasma calcium aubree urement (mass/volume)Ordered By: Pepe Au on 10-31-2024 Calcium [Mass/Vol] 9.7 mg/dL 8.5-10.1 [facility] Serum or plasma creatinine m easurement (mass/volume)Ordered By: Pepe Au on 10-31-2024 Creatinine [Mass/Vol] 2.52 mg/dL High 0.70-1.30 [facility] Comment on above: The validity of the calculated GFR & GFRAA in patients over 70 years has not been determined. Clinical correlation is essential. Serum or plasma urea nitroge n measurement (mass/volume)Ordered By: Pepe Au on 10-31-2024 Urea nitrogen [Mass/Vol] 70 mg/dL High 7-18 [facility] Sodium levelOrdered By: Lety Au on 10-31-2024 Sodium [Moles/Vol] 143 mmol/L 136-145 [facility] TIBCOrdered By: Pepe coley on 10-31-2024 Total Iron Binding Capacity 236 ug/dL Low 250-450 [facility] White blood cell (WBC) count Ordered By: Pepe Au on 10-31-2024 WBC (Bld) [#/Vol] 6.7 10*3/uL 4.4-11.0 [facility] Basophil percentageOrdered B y: Rios Downey on 03-22-2024 Bilirubin [Mass/Vol] 0.60 mg/dL 0.20-1.00 [facility] Comment on above: For patients on eltr ombopag therapy, use of Dimension [place] TBIL is not recommended. Chloride [Moles/Vol] 113 mmol/L 98-107 [facility] Cholesterol [Mass/Vol] 191 mg/dL <200 [facility] Comment on above: <200 mg/dL Desirable 200-240 mg/dL Borderline >240 mg/dL High Risk Glucose [Mass/Vol] 133 mg/dL 74-106 [facility] Comment on above: Fasting Glucose resu lt greater than or equal to 126 mg/dL suggests DIABETES MELLITUS per A.D.A. criteria. Hemoglobin (Bld) [Mass/Vol] 11.4 g/dL 13.0-16.5 [facility] Potassium [Moles/Vol] 4.7 mmol/L 3.5-5.1 [facility] Protein [Mass/Vol] 7.4 g/dL 6.4-8.2 [facility] Sodium [Moles/Vol] 143 mmol/L 136-145 [facility] Triglyceride [Mass/Vol] 132 mg/dL <199 [facility] Comment on above: The drugs N-Acetylcy steine and Metamizole may falsely depress this assay.Serum Triglycerides Reference Interval Normal <150 mg/dL Borderline high 150 - 199 mg/dL High 200 - 499 mg/dL Very High > or = 500 mg/dL WBC (Bld) [#/Vol] 8.3 10*3/uL 4.4-11.0 [facility] Cholesterol in LDL Direct as say [Mass/Vol]Ordered By: Rios Downey on 03-22-2024 Cholesterol in LDL [Mass/Vol] 140 mg/dL 0-99 [facility] Determination of erythrocyte mean corpuscular volume (MCV)Ordered By: Rios Downey on 03-22-2024 MCV (RBC) [Entitic vol] 96.2 fL 80-94 [facility] Erythrocyte distribution wid th ratioOrdered By: Rios Downey on 03-22-2024 Erythrocyte distribution width (RBC) [Ratio] 15.1 % 11.6-14.6 [facility] Erythrocyte distribution wid th standard deviationOrdered By: Rios Downey on 03-22-2024 Erythrocyte distribution width (RBC) [Entitic vol] 52.4 fL 35.1-43.9 [facility] Hematocrit Auto (Bld) [Volum e fraction]Ordered By: Rios Downey on 03-22-2024 Hematocrit (Bld) [Volume fraction] 35.8 % 40-54 [facility] Laboratory - Chemistry and C hemistry - challengeOrdered By: Rios Downey on 03-22-2024 Albumin/Globulin [Mass ratio] 0.8 {ratio} 0.9-2.4 [facility] ALP [Catalytic activity/Vol] 141 U/L 45-117 [facility] ALT [Catalytic activity/Vol] 14 U/L 16-61 [facility] Cholesterol in HDL [Mass/Vol] 33 mg/dL >40 [facility] Comment on above: The drugs N-Acetylcy steine and Metamizole may falsely depress this assay. Reference Range HDL <40 mg/dL Low HDL Cholesterol HDL >or= 60 mg/dL High HDL Cholesterol Cholesterol in LDL [Mass/Vol] 132 mg/dL 0-130 [facility] CO2 [Moles/Vol] 24.0 mmol/L 21.0-32.0 [facility] Cobalamin (Vitamin B12) [Mass/Vol] 470 pg/mL 211-911 [facility] Globulin (S) [Mass/Vol] 4.1 g/dL 2.2-4.2 [facility] Magnesium [Mass/Vol] 1.8 mg/dL 1.6-2.6 [facility] Urea nitrogen/Creatinine [Mass ratio] 18.2 mg/mg 10-20 [facility] Laboratory - Hematology and Cell countsOrdered By: Rios Downey on 03-22-2024 MCH (RBC) [Entitic mass] 30.6 pg 27.0-32.0 [facility] MCHC (RBC) [Mass/Vol] 31.8 g/dL 32-36 [facility] Platelet mean volume (Bld) [Entitic vol] 10.5 fL 6.2-12.0 [facility] Platelets (Bld) [#/Vol] 138 10*3/uL 150-450 [facility] Laboratory - Miscellaneous t estsOrdered By: Rios Downey on 03-22-2024 Service comment (Unsp spec) [Interp] TNP [facility] Comment on above: Test not performed No Panel InformationOrdered By: Rios Downey on 03-22-2024 Anti-Nuclear Antibody Screen Negative Negative [facility] Comment on above: Performed at: [address] [id number] Director: Nabeel Ruff PhD, Phone: [phone] Estimated GFR (MDRD) Amer 37 mL/min >60 [facility] Comment on above: GFR Calc Estimated GFR (MDRD) Non-Af Amer 31 mL/min >60 [facility] Comment on above: Non- GFR Calc Folate 26.90 ng/mL 3.1-55.4 [facility] Levetiracetam (Keppra) Level 55.2 ug/mL 10.0-40.0 [facility] Comment on above: Performed at: [employer] [facility] [employer] [address] [id number] Director: Nabeel Ruff PhD, Phone: [phone] at: [employer] [facility] [id number] Director: Suzy Adames MD, Phone: [phone] Vitamin D 25-Hydroxy 46.6 ng/mL [facility] Comment on above: Vitamin D 25(OH) Sta tus Range Deficiency <20 ng/mL (50nmol/L) Insufficiency 20 - 30 ng/mL (50 - 75 nmol/L) Sufficiency 30 - 100 ng/mL (75 - 250 nmol/L) Toxicity >100 ng/mL (>250 nmol/L) VLDL Cholesterol 26 mg/dL 5-40 [facility] RBC Auto (Bld) [#/Vol]Ordere d By: Rios Downey on 03-22-2024 RBC (Bld) [#/Vol] 3.72 10*6/uL 4.6-6.2 [facility] Serum or plasma calcium aubree urement (mass/volume)Ordered By: Rios Downey on 03-22-2024 Calcium [Mass/Vol] 9.1 mg/dL 8.5-10.1 [facility] Serum or plasma creatinine m easurement (mass/volume)Ordered By: Rios Downey on 03-22-2024 Creatinine [Mass/Vol] 2.20 mg/dL 0.70-1.30 [facility] Comment on above: The validity of the calculated GFR & GFRAA in patients over 70 years has not been determined. Clinical correlation is essential. Serum or plasma thyroid stim ulating hormone (TSH) measurement (units/volume)Ordered By: Rios Downey on 03-22-2024 TSH Qn 6.21 uIU/mL 0.358-3.74 [facility] Serum or plasma transthyreti n measurement (mass/volume)Ordered By: Rios Downey on 03-22-2024 Prealbumin [Mass/Vol] 19.8 mg/dL 20.0-40.0 [facility] Serum or plasma urea nitroge n measurement (mass/volume)Ordered By: Rios Downey on 03-22-2024 Urea nitrogen [Mass/Vol] 40 mg/dL 7-18 [facility] Serum or plasma uric acid me asurement (mass/volume)Ordered By: Rios Downey on 03-22-2024 Urate [Mass/Vol] 5.5 mg/dL 3.5-7.2 [facility] Comment on above: The drugs N-Acetylcy steine and Metamizole may falsely depress this assay. Thin prep Papanicolaou smear with manual screeningOrdered By: Rios Downey on 03-22-2024 Thin prep Papanicolaou smear with manual screening 3.3 g/dL 3.2-5.0 [facility] Thin prep Papanicolaou smear with manual screening 17 U/L 15-37 [facility] Thin prep Papanicolaou smear with manual screening 6 5-15 [facility] Thin prep Papanicolaou smear with manual screening 0.59 ng/dL 0.76-1.46 [facility] Whole blood hemoglobin A1c/t otal hemoglobin ratio (mass fraction)Ordered By: Rios Downey on 03-22-2024 HbA1c (Bld) [Mass fraction] 5.2 % 3.8-5.6 [facility] Comment on above: Normal < 5.7 % Predi abetic 5.7 - 6.4 % Diabetic >or= 6.5 % Please note range changes. Absolute lymphocyte countOrd ered By: Pepe Au on 03-14-2024 Lymphocytes Auto (Unsp spec) [#/Vol] 1.98 10*3/uL 0.83-4.51 [facility] Automated lymphocyte count a s percentage of total leukocytesOrdered By: Pepe Au on 03-14-2024 Lymphocytes/100 WBC Auto (Unsp spec) 25.4 % 19-41 [facility] Basophil percentageOrdered B y: [facility] Alexronaldo on 03-14-2024 Basophil percentage 2.4 mg/dL 2.5-4.9 [facility] Basophils/100 WBC (Bld) 0.6 % 0-1 [facility] Chloride [Moles/Vol] 112 mmol/L 98-107 [facility] Eosinophils/100 WBC (Bld) 3.9 % 0-5 [facility] Glucose [Mass/Vol] 120 mg/dL 74-106 [facility] Comment on above: Fasting Glucose resu lt from 100 to 125 mg/dL suggests IMPAIRED HOMEOSTASIS per A.D.A. criteria. Hemoglobin (Bld) [Mass/Vol] 11.2 g/dL 13.0-16.5 [facility] Monocytes/100 WBC (Bld) 6.9 % 0-10 [facility] Neutrophils (Bld) [#/Vol] 4.9 10*3/uL 2.0-7.7 [facility] Neutrophils/100 WBC (Bld) 62.9 % 47-70 [facility] Potassium [Moles/Vol] 4.3 mmol/L 3.5-5.1 [facility] Sodium [Moles/Vol] 140 mmol/L 136-145 [facility] WBC (Bld) [#/Vol] 7.8 10*3/uL 4.4-11.0 [facility] Determination of erythrocyte mean corpuscular volume (MCV)Ordered By: Pepe Au on 03-14-2024 MCV (RBC) [Entitic vol] 95.9 fL 80-94 [facility] Erythrocyte distribution wid th ratioOrdered By: [facility] Angely on 03-14-2024 Erythrocyte distribution width (RBC) [Ratio] 14.7 % 11.6-14.6 [facility] Erythrocyte distribution wid th standard deviationOrdered By: [facility] Angely on 03-14-2024 Erythrocyte distribution width (RBC) [Entitic vol] 51.0 fL 35.1-43.9 [facility] Hematocrit Auto (Bld) [Volum e fraction]Ordered By: [facility] centersteve Au on 03-14-2024 Hematocrit (Bld) [Volume fraction] 34.7 % 40-54 [facility] Immature granulocytes/100 WB C Auto (Bld)Ordered By: Pepe Au on 03-14-2024 Immature granulocytes/100 WBC (Bld) 0.300 % 0.0-0.9 [facility] Comment on above: IG% - Immature Granu locytes (promyelocytes, myelocytes and metamyelocytes) > 1% indicates that a LEFT SHIFT is Present. Iron measurement (mass/mass) Ordered By: Pepe Au on 03-14-2024 Iron (Unsp spec) [Mass/Mass] 66 ug/dL 65-175 [facility] Laboratory - Chemistry and C hemistry - challengeOrdered By: Pepe Au on 03-14-2024 CO2 [Moles/Vol] 27.0 mmol/L 21.0-32.0 [facility] Ferritin [Mass/Vol] 122 ng/mL 26-388 [facility] Urea nitrogen/Creatinine [Mass ratio] 22.7 mg/mg 10-20 [facility] Laboratory - Hematology and Cell countsOrdered By: Pepe Au on 03-14-2024 MCH (RBC) [Entitic mass] 30.9 pg 27.0-32.0 [facility] MCHC (RBC) [Mass/Vol] 32.3 g/dL 32-36 [facility] Nucleated RBC/100 WBC (Bld) [Ratio] 0 % 0-5 [facility] Platelet mean volume (Bld) [Entitic vol] 10.3 fL 6.2-12.0 [facility] Platelets (Bld) [#/Vol] 132 10*3/uL 150-450 [facility] No Panel InformationOrdered By: Pepe Au on 03-14-2024 Estimated GFR (MDRD) Amer 41 mL/min >60 [facility] Comment on above: GFR Calc Estimated GFR (MDRD) Non-Af Amer 34 mL/min >60 [facility] Comment on above: Non- GFR Calc Total Iron Binding Capacity 197 ug/dL 250-450 [facility] RBC Auto (Bld) [#/Vol]Ordere d By: Pepe Au on 03-14-2024 RBC (Bld) [#/Vol] 3.62 10*6/uL 4.6-6.2 [facility] Serum or plasma calcium aubree urement (mass/volume)Ordered By: Pepe Au on 03-14-2024 Calcium [Mass/Vol] 8.7 mg/dL 8.5-10.1 [facility] Serum or plasma creatinine m easurement (mass/volume)Ordered By: Pepe Au on 03-14-2024 Creatinine [Mass/Vol] 2.03 mg/dL 0.70-1.30 [facility] Comment on above: The validity of the calculated GFR & GFRAA in patients over 70 years has not been determined. Clinical correlation is essential. Serum or plasma iron saturat ion measurement (mass fraction)Ordered By: [facility] center[facility]ve Au on 03-14-2024 Iron saturation [Mass fraction] 33.5 % 15.0-55.0 [facility] Serum or plasma urea nitroge n measurement (mass/volume)Ordered By: [facility] Au on 03-14-2024 Urea nitrogen [Mass/Vol] 46 mg/dL 7-18 [facility] Thin prep Papanicolaou smear with manual screeningOrdered By: Pepe Au on 03-14-2024 Thin prep Papanicolaou smear with manual screening 3.2 g/dL 3.2-5.0 [facility] Absolute lymphocyte countOrd ered By: Cesar Medina on 02-19-2024 Lymphocytes Auto (Unsp spec) [#/Vol] 1.41 10*3/uL 0.83-4.51 [facility] Automated lymphocyte count a s percentage of total leukocytesOrdered By: Cesar Medina on 02-19-2024 Lymphocytes/100 WBC Auto (Unsp spec) 23.0 % 19-41 [facility] Basophil percentageOrdered B y: Cesar Medina on 02-19-2024 Basophil percentage 0 SEEN /hpf 0-5 [facility] Ammonia (P) [Moles/Vol] 20.0 umol/L 11-32 [facility] Basophils/100 WBC (Bld) 0.3 % 0-1 [facility] Bilirubin [Mass/Vol] 0.40 mg/dL 0.20-1.00 [facility] Comment on above: For patients on eltr ombopag therapy, use of Dimension [place] TBIL is not recommended. Chloride [Moles/Vol] 117 mmol/L 98-107 [facility] Eosinophils/100 WBC (Bld) 4.2 % 0-5 [facility] Glucose [Mass/Vol] 101 mg/dL 74-106 [facility] Comment on above: Fasting Glucose resu lt from 100 to 125 mg/dL suggests IMPAIRED HOMEOSTASIS per A.D.A. criteria. Hemoglobin (Bld) [Mass/Vol] 11.9 g/dL 13.0-16.5 [facility] Monocytes/100 WBC (Bld) 5.9 % 0-10 [facility] Neutrophils (Bld) [#/Vol] 4.1 10*3/uL 2.0-7.7 [facility] Neutrophils/100 WBC (Bld) 66.4 % 47-70 [facility] Potassium [Moles/Vol] 4.0 mmol/L 3.5-5.1 [facility] Protein [Mass/Vol] 7.5 g/dL 6.4-8.2 [facility] Sodium [Moles/Vol] 142 mmol/L 136-145 [facility] WBC (Bld) [#/Vol] 6.1 10*3/uL 4.4-11.0 [facility] Bilirubin Test strip Ql (U)O rdered By: Cesar Medina on 02-19-2024 Bilirubin Ql (U) Negative Negative [facility] Determination of erythrocyte mean corpuscular volume (MCV)Ordered By: Cesar Medina on 02-19-2024 MCV (RBC) [Entitic vol] 93.7 fL 80-94 [facility] Erythrocyte distribution wid th ratioOrdered By: Cesar Medina on 02-19-2024 Erythrocyte distribution width (RBC) [Ratio] 14.4 % 11.6-14.6 [facility] Erythrocyte distribution wid th standard deviationOrdered By: Cesar Medina on 02-19-2024 Erythrocyte distribution width (RBC) [Entitic vol] 48.8 fL 35.1-43.9 [facility] Hematocrit Auto (Bld) [Volum e fraction]Ordered By: Cesar Medina on 02-19-2024 Hematocrit (Bld) [Volume fraction] 35.9 % 40-54 [facility] Immature granulocytes/100 WB C Auto (Bld)Ordered By: Cesar Medina on 02-19-2024 Immature granulocytes/100 WBC (Bld) 0.200 % 0.0-0.9 [facility] Comment on above: IG% - Immature Granu locytes (promyelocytes, myelocytes and metamyelocytes) > 1% indicates that a LEFT SHIFT is Present. Ketones Test strip Ql (U)Ord ered By: Cesar Medina on 02-19-2024 Ketones Ql (U) Negative Negative [facility] Laboratory - Chemistry and C hemistry - challengeOrdered By: Cesar Medina on 02-19-2024 Albumin/Globulin [Mass ratio] 0.7 {ratio} 0.9-2.4 [facility] ALP [Catalytic activity/Vol] 167 U/L 45-117 [facility] ALT [Catalytic activity/Vol] 15 U/L 16-61 [facility] CO2 [Moles/Vol] 17.0 mmol/L 21.0-32.0 [facility] Globulin (S) [Mass/Vol] 4.5 g/dL 2.2-4.2 [facility] Lipase [Catalytic activity/Vol] 22 U/L 13-75 [facility] Comment on above: Please note:LIPASE r evised reference range effective 23. New Lipase methodology. Expected to produce lower values than the previous assay method. NEW Reference Range: 13 - 75 U/L Natriuretic peptide B (Bld) [Mass/Vol] 271.7 pg/mL 0-100 [facility] Urea nitrogen/Creatinine [Mass ratio] 19.6 mg/mg 10-20 [facility] Laboratory - Hematology and Cell countsOrdered By: Cesar Medina on 02-19-2024 MCH (RBC) [Entitic mass] 31.1 pg 27.0-32.0 [facility] MCHC (RBC) [Mass/Vol] 33.1 g/dL 32-36 [facility] Nucleated RBC/100 WBC (Bld) [Ratio] 0 % 0-5 [facility] Platelet mean volume (Bld) [Entitic vol] 10.6 fL 6.2-12.0 [facility] Platelets (Bld) [#/Vol] 137 10*3/uL 150-450 [facility] Laboratory - Microbiology an d Antimicrobial susceptibilityOrdered By: Cesar Medina on 02-19-2024 SARS-CoV-2 (COVID-19) RNA ELIANE+probe Ql (Unsp spec) [facility] Mucus LM Ql (Urine sed)Order ed By: Cesar Medina on 02-19-2024 Mucus Ql (Urine sed) 0 SEEN /hpf [facility] Nitrite Test strip Ql (U)Ord ered By: Cesar Medina on 02-19-2024 Nitrite Ql (U) Negative Negative [facility] No Panel InformationOrdered By: Cesar Medina on 02-19-2024 Urine RBC 0 SEEN /hpf 0-5 [facility] Estimated Creatinine Clearance Calc 25.73 ml/min [facility] Estimated GFR (MDRD) Amer 32 mL/min >60 [facility] Comment on above: GFR Calc Estimated GFR (MDRD) Non-Af Amer 26 mL/min >60 [facility] Comment on above: Non- GFR Calc Troponin I High Sensitivity 63 pg/mL 3.0-78.0 [facility] Comment on above: Please Note: New Megh[employer] t Units and Gender Specific Reference Ranges. For more information see Policy Stat Procedure [place] High Sensitivity Troponin (TNIH) and attachments. Protein Test strip Ql (U)Ord ered By: Cesar Medina on 02-19-2024 Protein Ql (U) 30 mg/dl Negative [facility] RBC Auto (Bld) [#/Vol]Ordere d By: Cesar Medina on 02-19-2024 RBC (Bld) [#/Vol] 3.83 10*6/uL 4.6-6.2 [facility] Serum or plasma calcium aubree urement (mass/volume)Ordered By: Cesar Medina on 02-19-2024 Calcium [Mass/Vol] 8.7 mg/dL 8.5-10.1 [facility] Serum or plasma creatinine m easurement (mass/volume)Ordered By: Cesar Medina on 02-19-2024 Creatinine [Mass/Vol] 2.50 mg/dL 0.70-1.30 [facility] Comment on above: The validity of the calculated GFR & GFRAA in patients over 70 years has not been determined. Clinical correlation is essential. Serum or plasma urea nitroge n measurement (mass/volume)Ordered By: Cesar Medina on 02-19-2024 Urea nitrogen [Mass/Vol] 49 mg/dL 7-18 [facility] Squamous epithelial cells de tection in urine sediment by light microscopyOrdered By: Cesar Medina on 02-19-2024 Epithelial cells.squamous LM Ql (Urine sed) 0 SEEN /hpf 0-5 [facility] Thin prep Papanicolaou smear with manual screeningOrdered By: Cesar Medina on 02-19-2024 Thin prep Papanicolaou smear with manual screening 3.0 g/dL 3.2-5.0 [facility] Thin prep Papanicolaou smear with manual screening 20 U/L 15-37 [facility] Thin prep Papanicolaou smear with manual screening 8 5-15 [facility] Urine blood detectionOrdered By: Cesar Medina on 02-19-2024 RBC Ql (U) 10 /ul Negative [facility] Urine clarityOrdered By: Jodie Medina on 02-19-2024 Clarity (U) Clear Clear [facility] Urine color determinationOrd ered By: Cesar Medina on 02-19-2024 Color (U) Yellow Yellow [facility] Urine glucose detectionOrder ed By: Cesar Medina on 02-19-2024 Glucose Ql (U) Normal mg/dl Normal [facility] Urine leukocyte esterase det ection by dipstickOrdered By: Cesar Medina on 02-19-2024 Leukocyte esterase Test strip Ql (U) Negative Negative [facility] Urine pHOrdered By: Cesar deras on 02-19-2024 pH (U) 6.0 [pH] 5.0 - 8.0 [facility] Urine sediment bacteria coun t by microscopy (number/high power field)Ordered By: Cesar Medina on 02-19-2024 Bacteria LM.HPF (Urine sed) [#/Area] 0 /[HPF] None Seen [facility] Urine specific gravity measu rementOrdered By: Cesar Medina on 02-19-2024 Specific gravity (U) [Rel density] 1.015 1.002-1.030 [facility] Urine urobilinogen measureme ntOrdered By: Cesar Medina on 02-19-2024 Urobilinogen Ql (U) Normal mg/dl Normal [facility] Basophil percentageOrdered B y: Angélica Palomo on 02-16-2024 Basophil percentage 0 SEEN /hpf 0-5 [facility] Bilirubin Test strip Ql (U)O rdered By: Angélica Palomo on 02-16-2024 Bilirubin Ql (U) Negative Negative [facility] Hyaline casts LM.LPF (Urine sed) [#/Area]Ordered By: Angélica Palomo on 02-16-2024 Hyaline casts (Urine sed) [#/Area] 0 /[LPF] 0-5 [facility] Ketones Test strip Ql (U)Ord ered By: Angélica Palomo on 02-16-2024 Ketones Ql (U) Negative Negative [facility] Mucus LM Ql (Urine sed)Order ed By: Angélica Palomo on 02-16-2024 Mucus Ql (Urine sed) 0 SEEN /hpf [facility] Nitrite Test strip Ql (U)Ord ered By: Angélica Palomo on 02-16-2024 Nitrite Ql (U) Negative Negative [facility] No Panel InformationOrdered By: Angélica Palomo on 02-16-2024 Urine RBC 0 SEEN /hpf 0-5 [facility] Protein Test strip Ql (U)Ord ered By: Angélica Palomo on 02-16-2024 Protein Ql (U) 100 mg/dl Negative [facility] Squamous epithelial cells de tection in urine sediment by light microscopyOrdered By: Angélica Palomo on 02-16-2024 Epithelial cells.squamous LM Ql (Urine sed) 0-5 SEEN /hpf 0-5 [facility] Urine blood detectionOrdered By: Angélica Palomo on 02-16-2024 RBC Ql (U) 10 /ul Negative [facility] Urine clarityOrdered By: Dee Palomo on 02-16-2024 Clarity (U) Clear Clear [facility] Urine coarse granular cast d etectionOrdered By: Angélica Palomo on 02-16-2024 Coarse Granular Casts LM Ql (Urine sed) 0-5 SEEN /lpf 0-5 /lpf [facility] Urine color determinationOrd ered By: Angélica Palomo on 02-16-2024 Color (U) Yellow Yellow [facility] Urine glucose detectionOrder ed By: Angélica Palomo on 02-16-2024 Glucose Ql (U) Normal mg/dl Normal [facility] Urine leukocyte esterase det ection by dipstickOrdered By: Angélica Palomo on 02-16-2024 Leukocyte esterase Test strip Ql (U) Negative Negative [facility] Urine pHOrdered By: Angélica sher on 02-16-2024 pH (U) 6.0 [pH] 5.0 - 8.0 [facility] Urine sediment bacteria coun t by microscopy (number/high power field)Ordered By: Angélica Palomo on 02-16-2024 Bacteria LM.HPF (Urine sed) [#/Area] RARE /hpf None Seen [facility] Urine specific gravity measu rementOrdered By: Angélica Palomo on 02-16-2024 Specific gravity (U) [Rel density] 1.020 1.002-1.030 [facility] Urine urobilinogen measureme ntOrdered By: Angélica Palomo on 02-16-2024 Urobilinogen Ql (U) Normal mg/dl Normal [facility] Absolute lymphocyte countOrd ered By: Angélica Palomo on 02-15-2024 Lymphocytes Auto (Unsp spec) [#/Vol] 1.62 10*3/uL 0.83-4.51 [facility] Absolute lymphocyte countOrd ered By: Pepe Au on 02-15-2024 Lymphocytes Auto (Unsp spec) [#/Vol] 1.93 10*3/uL 0.83-4.51 [facility] Automated lymphocyte count a s percentage of total leukocytesOrdered By: Angélica Palomo on 02-15-2024 Lymphocytes/100 WBC Auto (Unsp spec) 21.2 % [facility] Automated lymphocyte count a s percentage of total leukocytesOrdered By: Pepe Au on 02-15-2024 Lymphocytes/100 WBC Auto (Unsp spec) 21.1 % [facility] Basophil percentageOrdered B y: Pepe Au on 02-15-2024 Basophils/100 WBC (Bld) 0.3 % 0-1 [facility] Hemoglobin (Bld) [Mass/Vol] 12.9 g/dL 13.0-16.5 [facility] Basophil percentage 3.1 mg/dL 2.5-4.9 [facility] Chloride [Moles/Vol] 115 mmol/L 98-107 [facility] Eosinophils/100 WBC (Bld) 1.2 % 0-5 [facility] Glucose [Mass/Vol] 112 mg/dL 74-106 [facility] Comment on above: Fasting Glucose resu lt from 100 to 125 mg/dL suggests IMPAIRED HOMEOSTASIS per A.D.A. criteria. Monocytes/100 WBC (Bld) 8.2 % 0-10 [facility] Neutrophils (Bld) [#/Vol] 6.3 10*3/uL 2.0-7.7 [facility] Neutrophils/100 WBC (Bld) 68.9 % 47-70 [facility] Potassium [Moles/Vol] 4.2 mmol/L 3.5-5.1 [facility] Sodium [Moles/Vol] 140 mmol/L 136-145 [facility] WBC (Bld) [#/Vol] 9.2 10*3/uL 4.4-11.0 [facility] Basophil percentageOrdered B y: Angélica Palomo on 02-15-2024 Bilirubin [Mass/Vol] 0.40 mg/dL 0.20-1.00 [facility] Comment on above: For patients on eltr ombopag therapy, use of Dimension [place] TBIL is not recommended. Chloride [Moles/Vol] 116 mmol/L 98-107 [facility] Eosinophils/100 WBC (Bld) 2.2 % 0-5 [facility] Glucose [Mass/Vol] 116 mg/dL 74-106 [facility] Comment on above: Fasting Glucose resu lt from 100 to 125 mg/dL suggests IMPAIRED HOMEOSTASIS per A.D.A. criteria. Monocytes/100 WBC (Bld) 8.6 % 0-10 [facility] Neutrophils (Bld) [#/Vol] 5.1 10*3/uL 2.0-7.7 [facility] Neutrophils/100 WBC (Bld) 67.3 % 47-70 [facility] Potassium [Moles/Vol] 4.1 mmol/L 3.5-5.1 [facility] Protein [Mass/Vol] 7.7 g/dL 6.4-8.2 [facility] Sodium [Moles/Vol] 142 mmol/L 136-145 [facility] WBC (Bld) [#/Vol] 7.6 10*3/uL 4.4-11.0 [facility] Determination of erythrocyte mean corpuscular volume (MCV)Ordered By: Angélica Palomo on 02-15-2024 MCV (RBC) [Entitic vol] 97.3 fL 80-94 [facility] Determination of erythrocyte mean corpuscular volume (MCV)Ordered By: Pepe Au on 02-15-2024 MCV (RBC) [Entitic vol] 96.7 fL 80-94 [facility] Erythrocyte distribution wid th ratioOrdered By: Angélica Palomo on 02-15-2024 Erythrocyte distribution width (RBC) [Ratio] 14.0 % 11.6-14.6 [facility] Erythrocyte distribution wid th ratioOrdered By: Pepe Au on 02-15-2024 Erythrocyte distribution width (RBC) [Ratio] 14.1 % 11.6-14.6 [facility] Erythrocyte distribution wid th standard deviationOrdered By: Angélica Palomo on 02-15-2024 Erythrocyte distribution width (RBC) [Entitic vol] 50.0 fL 35.1-43.9 [facility] Erythrocyte distribution wid th standard deviationOrdered By: Pepe Au on 02-15-2024 Erythrocyte distribution width (RBC) [Entitic vol] 50.3 fL 35.1-43.9 [facility] Hematocrit Auto (Bld) [Volum e fraction]Ordered By: Angélica Palomo on 02-15-2024 Hematocrit (Bld) [Volume fraction] 40.3 % 40-54 [facility] Hematocrit Auto (Bld) [Volum e fraction]Ordered By: Pepe Au on 02-15-2024 Hematocrit (Bld) [Volume fraction] 40.8 % 40-54 [facility] Immature granulocytes/100 WB C Auto (Bld)Ordered By: Angélica Palomo on 02-15-2024 Immature granulocytes/100 WBC (Bld) 0.400 % 0.0-0.9 [facility] Comment on above: IG% - Immature Granu locytes (promyelocytes, myelocytes and metamyelocytes) > 1% indicates that a LEFT SHIFT is Present. Immature granulocytes/100 WB C Auto (Bld)Ordered By: Pepe Au on 02-15-2024 Immature granulocytes/100 WBC (Bld) 0.300 % 0.0-0.9 [facility] Comment on above: IG% - Immature Granu locytes (promyelocytes, myelocytes and metamyelocytes) > 1% indicates that a LEFT SHIFT is Present. Iron measurement (mass/mass) Ordered By: Pepe Au on 02-15-2024 Iron (Unsp spec) [Mass/Mass] 31 ug/dL 65-175 [facility] Laboratory - Chemistry and C hemistry - challengeOrdered By: Angélica Palomo on 02-15-2024 Albumin/Globulin [Mass ratio] 0.8 {ratio} 0.9-2.4 [facility] ALP [Catalytic activity/Vol] 123 U/L 45-117 [facility] ALT [Catalytic activity/Vol] 12 U/L 16-61 [facility] Globulin (S) [Mass/Vol] 4.4 g/dL 2.2-4.2 [facility] Lipase [Catalytic activity/Vol] 20 U/L 13-75 [facility] Comment on above: Please note:LIPASE r evised reference range effective 23. New Lipase methodology. Expected to produce lower values than the previous assay method. NEW Reference Range: 13 - 75 U/L Urea nitrogen/Creatinine [Mass ratio] 19.1 mg/mg 09-16 [facility] Laboratory - Chemistry and C hemistry - challengeOrdered By: Pepe Au on 02-15-2024 CO2 [Moles/Vol] 19.0 mmol/L 21.0-32.0 [facility] Ferritin [Mass/Vol] 141 ng/mL 26-388 [facility] Urea nitrogen/Creatinine [Mass ratio] 20.6 mg/mg 09-16 [facility] Laboratory - Hematology and Cell countsOrdered By: Angélica Palomo on 02-15-2024 MCH (RBC) [Entitic mass] 31.2 pg 27.0-32.0 [facility] MCHC (RBC) [Mass/Vol] 32.0 g/dL 32-36 [facility] Platelet mean volume (Bld) [Entitic vol] 10.7 fL 6.2-12.0 [facility] Platelets (Bld) [#/Vol] 111 10*3/uL 150-450 [facility] Laboratory - Hematology and Cell countsOrdered By: Pepe Au on 02-15-2024 Nucleated RBC/100 WBC (Bld) [Ratio] 0 % 0-5 [facility] MCH (RBC) [Entitic mass] 30.6 pg 27.0-32.0 [facility] MCHC (RBC) [Mass/Vol] 31.6 g/dL 32-36 [facility] Platelet mean volume (Bld) [Entitic vol] 10.0 fL 6.2-12.0 [facility] Platelets (Bld) [#/Vol] 118 10*3/uL 150-450 [facility] No Panel InformationOrdered By: Angélica Palomo on 02-15-2024 Estimated Creatinine Clearance Calc 25.89 ml/min [facility] Estimated GFR (MDRD) Amer 33 mL/min >60 [facility] Comment on above: GFR Calc Estimated GFR (MDRD) Non-Af Amer 27 mL/min >60 [facility] Comment on above: Non- GFR Calc No Panel InformationOrdered By: Pepe Au on 02-15-2024 Estimated GFR (MDRD) Amer 32 mL/min >60 [facility] Comment on above: GFR Calc Estimated GFR (MDRD) Non-Af Amer 26 mL/min >60 [facility] Comment on above: Non- GFR Calc Total Iron Binding Capacity 264 ug/dL 250-450 [facility] RBC Auto (Bld) [#/Vol]Ordere d By: Angélica Palomo on 02-15-2024 RBC (Bld) [#/Vol] 4.14 10*6/uL 4.6-6.2 [facility] RBC Auto (Bld) [#/Vol]Ordere d By: Pepe Au on 02-15-2024 RBC (Bld) [#/Vol] 4.22 10*6/uL 4.6-6.2 [facility] Serum or plasma calcium aubree urement (mass/volume)Ordered By: Angélica Palomo on 02-15-2024 Calcium [Mass/Vol] 9.5 mg/dL 8.5-10.1 [facility] Serum or plasma calcium aubree urement (mass/volume)Ordered By: Pepe Au on 02-15-2024 Calcium [Mass/Vol] 9.4 mg/dL 8.5-10.1 [facility] Serum or plasma creatinine m easurement (mass/volume)Ordered By: Angélica Palomo on 02-15-2024 Creatinine [Mass/Vol] 2.46 mg/dL 0.70-1.30 [facility] Comment on above: The validity of the calculated GFR & GFRAA in patients over 70 years has not been determined. Clinical correlation is essential. Serum or plasma creatinine m easurement (mass/volume)Ordered By: Pepe Au on 02-15-2024 Creatinine [Mass/Vol] 2.53 mg/dL 0.70-1.30 [facility] Comment on above: The validity of the calculated GFR & GFRAA in patients over 70 years has not been determined. Clinical correlation is essential. Serum or plasma iron saturat ion measurement (mass fraction)Ordered By: Pepe Au on 02-15-2024 Iron saturation [Mass fraction] 11.7 % 15.0-55.0 [facility] Serum or plasma urea nitroge n measurement (mass/volume)Ordered By: Angélica Palomo on 02-15-2024 Urea nitrogen [Mass/Vol] 47 mg/dL 06-14 [facility] Serum or plasma urea nitroge n measurement (mass/volume)Ordered By: Pepe Au on 02-15-2024 Urea nitrogen [Mass/Vol] 52 mg/dL 06-14 [facility] Thin prep Papanicolaou smear with manual screeningOrdered By: Angélica Palomo on 02-15-2024 Thin prep Papanicolaou smear with manual screening 3.3 g/dL 3.2-5.0 [facility] Thin prep Papanicolaou smear with manual screening 18 U/L 15-37 [facility] Thin prep Papanicolaou smear with manual screening 7 5-15 [facility] Thin prep Papanicolaou smear with manual screeningOrdered By: Pepe Au on 02-15-2024 Thin prep Papanicolaou smear with manual screening 3.7 g/dL 3.2-5.0 [facility] Absolute lymphocyte countOrd ered By: Pepe Au on 01-18-2024 Lymphocytes Auto (Unsp spec) [#/Vol] 1.86 10*3/uL 0.83-4.51 [facility] Automated lymphocyte count a s percentage of total leukocytesOrdered By: Pepe Au on 01-18-2024 Lymphocytes/100 WBC Auto (Unsp spec) 25.9 % 19-41 [facility] Basophil percentageOrdered B y: [facility] on 01-18-2024 Basophil percentage 3.0 mg/dL 2.5-4.9 [facility] Basophils/100 WBC (Bld) 0.6 % 0-1 [facility] Chloride [Moles/Vol] 111 mmol/L 98-107 [facility] Eosinophils/100 WBC (Bld) 4.0 % 0-5 [facility] Glucose [Mass/Vol] 160 mg/dL 74-106 [facility] Comment on above: Fasting Glucose resu lt greater than or equal to 126 mg/dL suggests DIABETES MELLITUS per A.D.A. criteria. Hemoglobin (Bld) [Mass/Vol] 11.7 g/dL 13.0-16.5 [facility] Monocytes/100 WBC (Bld) 7.3 % 0-10 [facility] Neutrophils (Bld) [#/Vol] 4.4 10*3/uL 2.0-7.7 [facility] Neutrophils/100 WBC (Bld) 61.9 % 47-70 [facility] Potassium [Moles/Vol] 4.7 mmol/L 3.5-5.1 [facility] Sodium [Moles/Vol] 139 mmol/L 136-145 [facility] WBC (Bld) [#/Vol] 7.2 10*3/uL 4.4-11.0 [facility] Determination of erythrocyte mean corpuscular volume (MCV)Ordered By: Pepe Au on 01-18-2024 MCV (RBC) [Entitic vol] 97.4 fL 80-94 [facility] Erythrocyte distribution wid th ratioOrdered By: Pepe Au on 01-18-2024 Erythrocyte distribution width (RBC) [Ratio] 13.7 % 11.6-14.6 [facility] Erythrocyte distribution wid th standard deviationOrdered By: Pepe Au on 01-18-2024 Erythrocyte distribution width (RBC) [Entitic vol] 48.4 fL 35.1-43.9 [facility] Hematocrit Auto (Bld) [Volum e fraction]Ordered By: Pepe Au on 01-18-2024 Hematocrit (Bld) [Volume fraction] 37.2 % 40-54 [facility] Immature granulocytes/100 WB C Auto (Bld)Ordered By: [facility] Au on 01-18-2024 Immature granulocytes/100 WBC (Bld) 0.300 % 0.0-0.9 [facility] Comment on above: IG% - Immature Granu locytes (promyelocytes, myelocytes and metamyelocytes) > 1% indicates that a LEFT SHIFT is Present. Iron measurement (mass/mass) Ordered By: Pepe Au on 01-18-2024 Iron (Unsp spec) [Mass/Mass] 54 ug/dL 65-175 [facility] Laboratory - Chemistry and C hemistry - challengeOrdered By: Pepe Au on 01-18-2024 CO2 [Moles/Vol] 26.0 mmol/L 21.0-32.0 [facility] Ferritin [Mass/Vol] 103 ng/mL 26-388 [facility] Urea nitrogen/Creatinine [Mass ratio] 18.2 mg/mg 10-20 [facility] Laboratory - Hematology and Cell countsOrdered By: Pepe Au on 01-18-2024 MCH (RBC) [Entitic mass] 30.6 pg 27.0-32.0 [facility] MCHC (RBC) [Mass/Vol] 31.5 g/dL 32-36 [facility] Nucleated RBC/100 WBC (Bld) [Ratio] 0 % 0-5 [facility] Platelet mean volume (Bld) [Entitic vol] 10.2 fL 6.2-12.0 [facility] Platelets (Bld) [#/Vol] 131 10*3/uL 150-450 [facility] No Panel InformationOrdered By: Pepe Au on 01-18-2024 Estimated GFR (MDRD) Amer 33 mL/min >60 [facility] Comment on above: GFR Calc Estimated GFR (MDRD) Non-Af Amer 27 mL/min >60 [facility] Comment on above: Non- GFR Calc Parathyroid Hormone (Intact) 20.1 pg/mL 18.4-80.1 [facility] Total Iron Binding Capacity 273 ug/dL 250-450 [facility] RBC Auto (Bld) [#/Vol]Ordere d By: Pepe Au on 01-18-2024 RBC (Bld) [#/Vol] 3.82 10*6/uL 4.6-6.2 [facility] Serum or plasma calcium aubree urement (mass/volume)Ordered By: Pepe Au on 01-18-2024 Calcium [Mass/Vol] 9.8 mg/dL 8.5-10.1 [facility] Serum or plasma creatinine m easurement (mass/volume)Ordered By: Pepe Au on 01-18-2024 Creatinine [Mass/Vol] 2.42 mg/dL 0.70-1.30 [facility] Comment on above: The validity of the calculated GFR & GFRAA in patients over 70 years has not been determined. Clinical correlation is essential. Serum or plasma iron saturat ion measurement (mass fraction)Ordered By: Pepe Au on 01-18-2024 Iron saturation [Mass fraction] 19.8 % 15.0-55.0 [facility] Serum or plasma urea nitroge n measurement (mass/volume)Ordered By: Pepe Au on 01-18-2024 Urea nitrogen [Mass/Vol] 44 mg/dL 7-18 [facility] Thin prep Papanicolaou smear with manual screeningOrdered By: Pepe Au on 01-18-2024 Thin prep Papanicolaou smear with manual screening 3.2 g/dL 3.2-5.0 [facility] Absolute lymphocyte countOrd ered By: Pepe Au on 12-21-2023 Lymphocytes Auto (Unsp spec) [#/Vol] 2.33 10*3/uL 0.83-4.51 [facility] Automated lymphocyte count a s percentage of total leukocytesOrdered By: Pepe Au on 12-21-2023 Lymphocytes/100 WBC Auto (Unsp spec) 36.6 % 19-41 [facility] Basophil percentageOrdered B y: Pepe Au on 12-21-2023 Basophil percentage 3.7 mg/dL 2.5-4.9 [facility] Basophils/100 WBC (Bld) 0.3 % 0-1 [facility] Chloride [Moles/Vol] 110 mmol/L 98-107 [facility] Eosinophils/100 WBC (Bld) 2.0 % 0-5 [facility] Glucose [Mass/Vol] 89 mg/dL 74-106 [facility] Hemoglobin (Bld) [Mass/Vol] 11.0 g/dL 13.0-16.5 [facility] Monocytes/100 WBC (Bld) 6.1 % 0-10 [facility] Neutrophils (Bld) [#/Vol] 3.5 10*3/uL 2.0-7.7 [facility] Neutrophils/100 WBC (Bld) 54.8 % 47-70 [facility] Potassium [Moles/Vol] 4.4 mmol/L 3.5-5.1 [facility] Sodium [Moles/Vol] 137 mmol/L 136-145 [facility] WBC (Bld) [#/Vol] 6.4 10*3/uL 4.4-11.0 [facility] Determination of erythrocyte mean corpuscular volume (MCV)Ordered By: Pepe Au on 12-21-2023 MCV (RBC) [Entitic vol] 98.1 fL 80-94 [facility] Erythrocyte distribution wid th ratioOrdered By: [facility] Angely on 12-21-2023 Erythrocyte distribution width (RBC) [Ratio] 14.6 % 11.6-14.6 [facility] Erythrocyte distribution wid th standard deviationOrdered By: [facility] Au on 12-21-2023 Erythrocyte distribution width (RBC) [Entitic vol] 52.2 fL 35.1-43.9 [facility] Hematocrit Auto (Bld) [Volum e fraction]Ordered By: Pepe Au on 12-21-2023 Hematocrit (Bld) [Volume fraction] 35.8 % 40-54 [facility] Immature granulocytes/100 WB C Auto (Bld)Ordered By: Pepe Au on 12-21-2023 Immature granulocytes/100 WBC (Bld) 0.200 % 0.0-0.9 [facility] Comment on above: IG% - Immature Granu locytes (promyelocytes, myelocytes and metamyelocytes) > 1% indicates that a LEFT SHIFT is Present. Iron measurement (mass/mass) Ordered By: Pepe Au on 12-21-2023 Iron (Unsp spec) [Mass/Mass] 70 ug/dL 65-175 [facility] Laboratory - Chemistry and C hemistry - challengeOrdered By: Pepe Au on 12-21-2023 CO2 [Moles/Vol] 24.0 mmol/L 21.0-32.0 [facility] Ferritin [Mass/Vol] 125 ng/mL 26-388 [facility] Urea nitrogen/Creatinine [Mass ratio] 18.7 mg/mg 10-20 [facility] Laboratory - Hematology and Cell countsOrdered By: Pepe Au on 12-21-2023 MCH (RBC) [Entitic mass] 30.1 pg 27.0-32.0 [facility] MCHC (RBC) [Mass/Vol] 30.7 g/dL 32-36 [facility] Nucleated RBC/100 WBC (Bld) [Ratio] 0 % 0-5 [facility] Platelets (Bld) [#/Vol] 122 10*3/uL 150-450 [facility] No Panel InformationOrdered By: Pepe Au on 12-21-2023 Estimated GFR (MDRD) Amer 31 mL/min >60 [facility] Comment on above: GFR Calc Estimated GFR (MDRD) Non-Af Amer 26 mL/min >60 [facility] Comment on above: Non- GFR Calc Total Iron Binding Capacity 251 ug/dL 250-450 [facility] Platelet mean volume Evan-Ec ker (Bld) [Entitic vol]Ordered By: Pepe Au on 12-21-2023 Platelet mean volume (Bld) [Entitic vol] 10.3 fL 6.2-12.0 [facility] RBC Auto (Bld) [#/Vol]Ordere d By: Pepe Au on 12-21-2023 RBC (Bld) [#/Vol] 3.65 10*6/uL 4.6-6.2 [facility] Serum or plasma calcium aubree urement (mass/volume)Ordered By: Peep Au on 12-21-2023 Calcium [Mass/Vol] 9.8 mg/dL 8.5-10.1 [facility] Serum or plasma creatinine m easurement (mass/volume)Ordered By: Pepe Au on 12-21-2023 Creatinine [Mass/Vol] 2.57 mg/dL 0.70-1.30 [facility] Comment on above: The validity of the calculated GFR & GFRAA in patients over 70 years has not been determined. Clinical correlation is essential. Serum or plasma iron saturat ion measurement (mass fraction)Ordered By: Pepe Au on 12-21-2023 Iron saturation [Mass fraction] 27.9 % 15.0-55.0 [facility] Serum or plasma urea nitroge n measurement (mass/volume)Ordered By: [facility] on 12-21-2023 Urea nitrogen [Mass/Vol] 48 mg/dL 7-18 [facility] Thin prep Papanicolaou smear with manual screeningOrdered By: Pepe Au on 12-21-2023 Thin prep Papanicolaou smear with manual screening 3.1 g/dL 3.2-5.0 [facility] Absolute lymphocyte countOrd ered By: Pepe Au on 12-02-2023 Lymphocytes Auto (Unsp spec) [#/Vol] 1.49 10*3/uL 0.83-4.51 [facility] Basophil percentageOrdered B y: Pepe Au on 12-02-2023 Basophil percentage 3.3 mg/dL 2.5-4.9 [facility] Basophils/100 WBC (Bld) 0.3 % 0-1 [facility] Chloride [Moles/Vol] 111 mmol/L 98-107 [facility] Eosinophils/100 WBC (Bld) 0.9 % 0-5 [facility] Glucose [Mass/Vol] 131 mg/dL 74-106 [facility] Comment on above: Fasting Glucose resu lt greater than or equal to 126 mg/dL suggests DIABETES MELLITUS per A.D.A. criteria. Neutrophils (Bld) [#/Vol] 6.6 10*3/uL 2.0-7.7 [facility] Neutrophils/100 WBC (Bld) 75.9 % 47-70 [facility] Potassium [Moles/Vol] 4.7 mmol/L 3.5-5.1 [facility] Sodium [Moles/Vol] 142 mmol/L 136-145 [facility] WBC (Bld) [#/Vol] 8.7 10*3/uL 4.4-11.0 [facility] Blood erythrocytes count (nu mber/volume)Ordered By: Pepe Au on 12-02-2023 RBC (Bld) [#/Vol] 3.48 10*6/uL 4.6-6.2 [facility] Blood hemoglobin measurement (mass/volume)Ordered By: Pepe Au on 12-02-2023 Hemoglobin (Bld) [Mass/Vol] 10.9 g/dL 13.0-16.5 [facility] Blood lymphocytes/100 leukoc ytesOrdered By: Pepe Au on 12-02-2023 Lymphocytes/100 WBC (Bld) 17.1 % 19-41 [facility] Blood monocytes/100 leukocyt esOrdered By: Pepe Au on 12-02-2023 Monocytes/100 WBC (Bld) 5.5 % 0-10 [facility] Blood platelet mean volumeOr dered By: Pepe Au on 12-02-2023 Platelet mean volume (Bld) [Entitic vol] 10.8 fL 6.2-12.0 [facility] Determination of erythrocyte mean corpuscular volume (MCV)Ordered By: Pepe Au on 12-02-2023 MCV (RBC) [Entitic vol] 101.1 fL 80-94 [facility] Hematocrit Auto (Bld) [Volum e fraction]Ordered By: Pepe Au on 12-02-2023 Hematocrit (Bld) [Volume fraction] 35.2 % 40-54 [facility] Iron measurement (mass/mass) Ordered By: Pepe Au on 12-02-2023 Iron (Unsp spec) [Mass/Mass] 70 ug/dL 65-175 [facility] Laboratory - Chemistry and C hemistry - challengeOrdered By: Pepe Au on 12-02-2023 CO2 [Moles/Vol] 26.0 mmol/L 21.0-32.0 [facility] Urea nitrogen/Creatinine [Mass ratio] 17.5 mg/mg 10-20 [facility] Laboratory - Hematology and Cell countsOrdered By: Pepe Au on 12-02-2023 Erythrocyte distribution width (RBC) [Entitic vol] 58.1 fL 35.1-43.9 [facility] Erythrocyte distribution width (RBC) [Ratio] 15.8 % 11.6-14.6 [facility] Immature granulocytes/100 WBC (Bld) 0.300 % 0.0-0.9 [facility] Comment on above: IG% - Immature Granu locytes (promyelocytes, myelocytes and metamyelocytes) > 1% indicates that a LEFT SHIFT is Present. MCH (RBC) [Entitic mass] 31.3 pg 27.0-32.0 [facility] Nucleated RBC/100 WBC (Bld) [Ratio] 0 % 0-5 [facility] MCHC Auto (RBC) [Mass/Vol]Or dered By: Pepe Au on 12-02-2023 MCHC (RBC) [Mass/Vol] 31.0 g/dL 32-36 [facility] No Panel InformationOrdered By: Pepe Au on 12-02-2023 Estimated GFR (MDRD) Amer 33 mL/min >60 [facility] Comment on above: GFR Calc Estimated GFR (MDRD) Non-Af Amer 27 mL/min >60 [facility] Comment on above: Non- GFR Calc Parathyroid Hormone (Intact) 26.3 pg/mL 18.4-80.1 [facility] Total Iron Binding Capacity 233 ug/dL 250-450 [facility] Platelets bldOrdered By: Zandra Au on 12-02-2023 Platelets (Bld) [#/Vol] 162 10*3/uL 150-450 [facility] Serum or plasma albumin aubree urement (mass/volume)Ordered By: Pepe Au on 12-02-2023 Albumin [Mass/Vol] 3.1 g/dL 3.2-5.0 [facility] Serum or plasma calcium aubree urement (mass/volume)Ordered By: Pepe Au on 12-02-2023 Calcium [Mass/Vol] 9.0 mg/dL 8.5-10.1 [facility] Serum or plasma creatinine m easurement (mass/volume)Ordered By: Pepe Au on 12-02-2023 Creatinine [Mass/Vol] 2.46 mg/dL 0.70-1.30 [facility] Comment on above: The validity of the calculated GFR & GFRAA in patients over 70 years has not been determined. Clinical correlation is essential. Serum or plasma ferritin laurie surement (mass/volume)Ordered By: Pepe Au on 12-02-2023 Ferritin [Mass/Vol] 118 ng/mL 26-388 [facility] Serum or plasma urea nitroge n measurement (mass/volume)Ordered By: Pepe Au on 12-02-2023 Urea nitrogen [Mass/Vol] 43 mg/dL 7-18 [facility] Serum or plasma uric acid me asurement (mass/volume)Ordered By: Pepe Au on 12-02-2023 Urate [Mass/Vol] 5.5 mg/dL 3.5-7.2 [facility] Comment on above: The drugs N-Acetylcy steine and Metamizole may falsely depress this assay. Absolute lymphocyte countOrd ered By: Pepe Au on 11-23-2023 Lymphocytes Auto (Unsp spec) [#/Vol] 1.50 10*3/uL 0.83-4.51 [facility] Basophil percentageOrdered B y: Pepe Au on 11-23-2023 Basophil percentage 195 mg/dL 74-106 [facility] Basophil percentage 3.1 mg/dL 2.5-4.9 [facility] Basophil percentage 139 mmol/L 136-145 [facility] Basophil percentage 4.4 mmol/L 3.5-5.1 [facility] Basophil percentage 110 mmol/L 98-107 [facility] Basophils (Bld) [#/Vol] 7.4 10*3/uL 4.4-11.0 [facility] Basophils (Bld) [#/Vol] 5.1 10*3/uL 2.0-7.7 [facility] Basophils/100 WBC (Bld) 68.1 % 47-70 [facility] Basophils/100 WBC (Bld) 4.0 % 0-5 [facility] Basophils/100 WBC (Bld) 0.5 % 0-1 [facility] Chloride [Moles/Vol] 110 mmol/L 98-107 [facility] Eosinophils/100 WBC (Bld) 4.0 % 0-5 [facility] Glucose [Mass/Vol] 195 mg/dL 74-106 [facility] Comment on above: Fasting Glucose resu lt greater than or equal to 126 mg/dL suggests DIABETES MELLITUS per A.D.A. criteria. Neutrophils (Bld) [#/Vol] 5.1 10*3/uL 2.0-7.7 [facility] Neutrophils/100 WBC (Bld) 68.1 % 47-70 [facility] Potassium [Moles/Vol] 4.4 mmol/L 3.5-5.1 [facility] Sodium [Moles/Vol] 139 mmol/L 136-145 [facility] WBC (Bld) [#/Vol] 7.4 10*3/uL 4.4-11.0 [facility] Blood erythrocytes count (nu mber/volume)Ordered By: Pepe Au on 11-23-2023 RBC (Bld) [#/Vol] 3.23 10*6/uL 4.6-6.2 [facility] Blood hemoglobin measurement (mass/volume)Ordered By: Pepe Au on 11-23-2023 Hemoglobin (Bld) [Mass/Vol] 10.2 g/dL 13.0-16.5 [facility] Blood lymphocytes/100 leukoc ytesOrdered By: Pepe Au on 11-23-2023 Lymphocytes/100 WBC (Bld) 20.2 % 19-41 [facility] Blood monocytes/100 leukocyt esOrdered By: Pepe Au on 11-23-2023 Monocytes/100 WBC (Bld) 6.7 % 0-10 [facility] Blood platelet mean volumeOr dered By: Pepe Au on 11-23-2023 Platelet mean volume (Bld) [Entitic vol] 10.2 fL 6.2-12.0 [facility] Determination of erythrocyte mean corpuscular volume (MCV)Ordered By: Pepe Au on 11-23-2023 MCV (RBC) [Entitic vol] 98.5 fL 80-94 [facility] Hematocrit Auto (Bld) [Volum e fraction]Ordered By: Pepe Au on 11-23-2023 Hematocrit (Bld) [Volume fraction] 31.8 % 40-54 [facility] Iron measurement (mass/mass) Ordered By: Pepe Au on 11-23-2023 Iron (Unsp spec) [Mass/Mass] 57 ug/dL 65-175 [facility] Laboratory - Chemistry and C hemistry - challengeOrdered By: [facility]ve [facility] on 11-23-2023 CO2 [Moles/Vol] 26.0 mmol/L 21.0-32.0 [facility] Urea nitrogen/Creatinine [Mass ratio] 26.6 mg/mg 10-20 [facility] Laboratory - Hematology and Cell countsOrdered By: Pepe Au on 11-23-2023 Erythrocyte distribution width (RBC) [Entitic vol] 55.5 fL 35.1-43.9 [facility] Erythrocyte distribution width (RBC) [Ratio] 15.7 % 11.6-14.6 [facility] Immature granulocytes/100 WBC (Bld) 0.500 % 0.0-0.9 [facility] Comment on above: IG% - Immature Granu locytes (promyelocytes, myelocytes and metamyelocytes) > 1% indicates that a LEFT SHIFT is Present. MCH (RBC) [Entitic mass] 31.6 pg 27.0-32.0 [facility] Nucleated RBC/100 WBC (Bld) [Ratio] 0 % 0-5 [facility] MCHC Auto (RBC) [Mass/Vol]Or dered By: Pepe Au on 11-23-2023 MCHC (RBC) [Mass/Vol] 32.1 g/dL 32-36 [facility] No Panel InformationOrdered By: Pepe Au on 11-23-2023 Estimated GFR (MDRD) Amer 33 mL/min >60 [facility] Comment on above: GFR Calc Estimated GFR (MDRD) Non-Af Amer 27 mL/min >60 [facility] Comment on above: Non- GFR Calc Total Iron Binding Capacity 223 ug/dL 250-450 [facility] 31.6 pg 27.0-32.0 [facility] 15.7 % 11.6-14.6 [facility] 55.5 fl 35.1-43.9 [facility] 0.500 % 0.0-0.9 [facility] 0 % 0-5 [facility] 27 mL/min >60 [facility] 33 mL/min >60 [facility] 26.6 RATIO 10-20 [facility] 26.0 mmol/L 21.0-32.0 [facility] 223 ug/dL 250-450 [facility] Platelets bldOrdered By: Zandra Au on 11-23-2023 Platelets (Bld) [#/Vol] 134 10*3/uL 150-450 [facility] Serum or plasma albumin aubree urement (mass/volume)Ordered By: Pepe Au on 11-23-2023 Albumin [Mass/Vol] 2.9 g/dL 3.2-5.0 [facility] Serum or plasma calcium aubree urement (mass/volume)Ordered By: Pepe Au on 11-23-2023 Calcium [Mass/Vol] 9.8 mg/dL 8.5-10.1 [facility] Serum or plasma creatinine m easurement (mass/volume)Ordered By: Pepe Au on 11-23-2023 Creatinine [Mass/Vol] 2.44 mg/dL 0.70-1.30 [facility] Comment on above: The validity of the calculated GFR & GFRAA in patients over 70 years has not been determined. Clinical correlation is essential. Serum or plasma ferritin laurie surement (mass/volume)Ordered By: Pepe Au on 11-23-2023 Ferritin [Mass/Vol] 208 ng/mL 26-388 [facility] Serum or plasma iron saturat ion measurement (mass fraction)Ordered By: Pepe Au on 11-23-2023 Iron saturation [Mass fraction] 25.6 % 15.0-55.0 [facility] Serum or plasma urea nitroge n measurement (mass/volume)Ordered By: [facility]steve Alexronaldo on 11-23-2023 Urea nitrogen [Mass/Vol] 65 mg/dL 7-18 [facility] Absolute lymphocyte countOrd ered By: [facility] on 10-26-2023 Lymphocytes Auto (Unsp spec) [#/Vol] 1.33 10*3/uL 0.83-4.51 [facility] Basophil percentageOrdered B y: [facility] Angely on 10-26-2023 Basophil percentage 176 mg/dL 74-106 [facility] Basophil percentage 2.9 mg/dL 2.5-4.9 [facility] Basophil percentage 141 mmol/L 136-145 [facility] Basophil percentage 4.5 mmol/L 3.5-5.1 [facility] Basophil percentage 109 mmol/L 98-107 [facility] Basophils (Bld) [#/Vol] 5.9 10*3/uL 4.4-11.0 [facility] Basophils (Bld) [#/Vol] 3.7 10*3/uL 2.0-7.7 [facility] Basophils/100 WBC (Bld) 62.8 % 47-70 [facility] Basophils/100 WBC (Bld) 4.8 % 0-5 [facility] Basophils/100 WBC (Bld) 0.7 % 0-1 [facility] Chloride [Moles/Vol] 109 mmol/L 98-107 [facility] Eosin[facility] WBC (Bld) 4.8 % 0-5 [facility] Glucose [Mass/Vol] 176 mg/dL 74-106 [facility] Comment on above: Fasting Glucose resu lt greater than or equal to 126 mg/dL suggests DIABETES MELLITUS per A.D.A. criteria. Neutrophils (Bld) [#/Vol] 3.7 10*3/uL 2.0-7.7 [facility] Neutrophils/100 WBC (Bld) 62.8 % 47-70 [facility] Potassium [Moles/Vol] 4.5 mmol/L 3.5-5.1 [facility] Sodium [Moles/Vol] 141 mmol/L 136-145 [facility] WBC (Bld) [#/Vol] 5.9 10*3/uL 4.4-11.0 [facility] Blood erythrocytes count (nu mber/volume)Ordered By: Pepe Au on 10-26-2023 RBC (Bld) [#/Vol] 3.85 10*6/uL 4.6-6.2 [facility] Blood hemoglobin measurement (mass/volume)Ordered By: Pepe Au on 10-26-2023 Hemoglobin (Bld) [Mass/Vol] 11.8 g/dL 13.0-16.5 [facility] Blood lymphocytes/100 leukoc ytesOrdered By: Pepe Au on 10-26-2023 Lymphocytes/100 WBC (Bld) 22.7 % 19-41 [facility] Blood monocytes/100 leukocyt esOrdered By: Pepe Au on 10-26-2023 Monocytes/100 WBC (Bld) 8.7 % 0-10 [facility] Blood platelet mean volumeOr dered By: Pepe Au on 10-26-2023 Platelet mean volume (Bld) [Entitic vol] 10.3 fL 6.2-12.0 [facility] Determination of erythrocyte mean corpuscular volume (MCV)Ordered By: Pepe Au on 10-26-2023 MCV (RBC) [Entitic vol] 98.4 fL 80-94 [facility] Hematocrit Auto (Bld) [Volum e fraction]Ordered By: Pepe Au on 10-26-2023 Hematocrit (Bld) [Volume fraction] 37.9 % 40-54 [facility] Iron measurement (mass/mass) Ordered By: Pepe Au on 10-26-2023 Iron (Unsp spec) [Mass/Mass] 41 ug/dL 65-175 [facility] Laboratory - Chemistry and C hemistry - challengeOrdered By: Pepe Au on 10-26-2023 CO2 [Moles/Vol] 24.0 mmol/L 21.0-32.0 [facility] Urea nitrogen/Creatinine [Mass ratio] 23.1 mg/mg 10-20 [facility] Laboratory - Hematology and Cell countsOrdered By: Pepe Au on 10-26-2023 Erythrocyte distribution width (RBC) [Entitic vol] 51.5 fL 35.1-43.9 [facility] Erythrocyte distribution width (RBC) [Ratio] 14.3 % 11.6-14.6 [facility] Immature granulocytes/100 WBC (Bld) 0.300 % 0.0-0.9 [facility] Comment on above: IG% - Immature Granu locytes (promyelocytes, myelocytes and metamyelocytes) > 1% indicates that a LEFT SHIFT is Present. MCH (RBC) [Entitic mass] 30.6 pg 27.0-32.0 [facility] Nucleated RBC/100 WBC (Bld) [Ratio] 0 % 0-5 [facility] MCHC Auto (RBC) [Mass/Vol]Or dered By: Pepe Au on 10-26-2023 MCHC (RBC) [Mass/Vol] 31.1 g/dL 32-36 [facility] No Panel InformationOrdered By: Pepe Au on 10-26-2023 Estimated GFR (MDRD) Amer 34 mL/min >60 [facility] Comment on above: GFR Calc Estimated GFR (MDRD) Non-Af Amer 28 mL/min >60 [facility] Comment on above: Non- GFR Calc Total Iron Binding Capacity 243 ug/dL 250-450 [facility] 30.6 pg 27.0-32.0 [facility] 14.3 % 11.6-14.6 [facility] 51.5 fl 35.1-43.9 [facility] 0.300 % 0.0-0.9 [facility] 0 % 0-5 [facility] 28 mL/min >60 [facility] 34 mL/min >60 [facility] 23.1 RATIO 10-20 [facility] 24.0 mmol/L 21.0-32.0 [facility] 243 ug/dL 250-450 [facility] Platelets bldOrdered By: Zandra Au on 10-26-2023 Platelets (Bld) [#/Vol] 162 10*3/uL 150-450 [facility] Serum or plasma albumin aubree urement (mass/volume)Ordered By: Pepe Au on 10-26-2023 Albumin [Mass/Vol] 3.2 g/dL 3.2-5.0 [facility] Serum or plasma calcium aubree urement (mass/volume)Ordered By: Pepe Au on 10-26-2023 Calcium [Mass/Vol] 9.3 mg/dL 8.5-10.1 [facility] Serum or plasma creatinine m easurement (mass/volume)Ordered By: Pepe Au on 10-26-2023 Creatinine [Mass/Vol] 2.38 mg/dL 0.70-1.30 [facility] Comment on above: The validity of the calculated GFR & GFRAA in patients over 70 years has not been determined. Clinical correlation is essential. Serum or plasma ferritin laurie surement (mass/volume)Ordered By: Pepe Au on 10-26-2023 Ferritin [Mass/Vol] 177 ng/mL 26-388 [facility] Serum or plasma iron saturat ion measurement (mass fraction)Ordered By: [facility]ve Au on 10-26-2023 Iron saturation [Mass fraction] 16.9 % 15.0-55.0 [facility] Serum or plasma urea nitroge n measurement (mass/volume)Ordered By: Pepe Au on 10-26-2023 Urea nitrogen [Mass/Vol] 55 mg/dL 7-18 [facility] Absolute lymphocyte countOrd ered By: Pepe Au on 09-28-2023 Lymphocytes Auto (Unsp spec) [#/Vol] 1.28 10*3/uL 0.83-4.51 [facility] Basophil percentageOrdered B y: Pepe Au on 09-28-2023 Basophil percentage 113 mg/dL 74-106 [facility] Basophil percentage 3.5 mg/dL 2.5-4.9 [facility] Basophil percentage 141 mmol/L 136-145 [facility] Basophil percentage 4.7 mmol/L 3.5-5.1 [facility] Basophil percentage 110 mmol/L 98-107 [facility] Basophils (Bld) [#/Vol] 7.2 10*3/uL 4.4-11.0 [facility] Basophils (Bld) [#/Vol] 5.3 10*3/uL 2.0-7.7 [facility] Basophils/100 WBC (Bld) 73.9 % 47-70 [facility] Basophils/100 WBC (Bld) 2.1 % 0-5 [facility] Basophils/100 WBC (Bld) 0.4 % 0-1 [facility] Chloride [Moles/Vol] 110 mmol/L 98-107 [facility] Eosinophils/100 WBC (Bld) 2.1 % 0-5 [facility] Glucose [Mass/Vol] 113 mg/dL 74-106 [facility] Comment on above: Fasting Glucose resu lt from 100 to 125 mg/dL suggests IMPAIRED HOMEOSTASIS per A.D.A. criteria. Neutrophils (Bld) [#/Vol] 5.3 10*3/uL 2.0-7.7 [facility] Neutrophils/100 WBC (Bld) 73.9 % 47-70 [facility] Potassium [Moles/Vol] 4.7 mmol/L 3.5-5.1 [facility] Sodium [Moles/Vol] 141 mmol/L 136-145 [facility] WBC (Bld) [#/Vol] 7.2 10*3/uL 4.4-11.0 [facility] Blood erythrocytes count (nu mber/volume)Ordered By: Pepe Au on 09-28-2023 RBC (Bld) [#/Vol] 3.28 10*6/uL 4.6-6.2 [facility] Blood hemoglobin measurement (mass/volume)Ordered By: Pepe Au on 09-28-2023 Hemoglobin (Bld) [Mass/Vol] 10.2 g/dL 13.0-16.5 [facility] Blood lymphocytes/100 leukoc ytesOrdered By: Pepe Au on 09-28-2023 Lymphocytes/100 WBC (Bld) 17.9 % 19-41 [facility] Blood monocytes/100 leukocyt esOrdered By: Pepe Au on 09-28-2023 Monocytes/100 WBC (Bld) 5.4 % 0-10 [facility] Blood platelet mean volumeOr dered By: Pepe Au on 09-28-2023 Platelet mean volume (Bld) [Entitic vol] 10.7 fL 6.2-12.0 [facility] Determination of erythrocyte mean corpuscular volume (MCV)Ordered By: Pepe Au on 09-28-2023 MCV (RBC) [Entitic vol] 100.9 fL 80-94 [facility] Hematocrit Auto (Bld) [Volum e fraction]Ordered By: Pepe Au on 09-28-2023 Hematocrit (Bld) [Volume fraction] 33.1 % 40-54 [facility] Iron measurement (mass/mass) Ordered By: Pepe Au on 09-28-2023 Iron (Unsp spec) [Mass/Mass] 49 ug/dL 65-175 [facility] Laboratory - Chemistry and C hemistry - challengeOrdered By: Pepe Au on 09-28-2023 CO2 [Moles/Vol] 27.0 mmol/L 21.0-32.0 [facility] Urea nitrogen/Creatinine [Mass ratio] 24.4 mg/mg 10-20 [facility] Laboratory - Hematology and Cell countsOrdered By: Pepe Au on 09-28-2023 Erythrocyte distribution width (RBC) [Entitic vol] 55.8 fL 35.1-43.9 [facility] Erythrocyte distribution width (RBC) [Ratio] 15.2 % 11.6-14.6 [facility] Immature granulocytes/100 WBC (Bld) 0.300 % 0.0-0.9 [facility] Comment on above: IG% - Immature Granu locytes (promyelocytes, myelocytes and metamyelocytes) > 1% indicates that a LEFT SHIFT is Present. MCH (RBC) [Entitic mass] 31.1 pg 27.0-32.0 [facility] Nucleated RBC/100 WBC (Bld) [Ratio] 0 % 0-5 [facility] MCHC Auto (RBC) [Mass/Vol]Or dered By: Pepe Au on 09-28-2023 MCHC (RBC) [Mass/Vol] 30.8 g/dL 32-36 [facility] No Panel InformationOrdered By: Pepe Au on 09-28-2023 Estimated GFR (MDRD) Amer 35 mL/min >60 [facility] Comment on above: GFR Calc Estimated GFR (MDRD) Non-Af Amer 29 mL/min >60 [facility] Comment on above: Non- GFR Calc Parathyroid Hormone (Intact) 33.4 pg/mL 18.4-80.1 [facility] Total Iron Binding Capacity 257 ug/dL 250-450 [facility] 31.1 pg 27.0-32.0 [facility] 15.2 % 11.6-14.6 [facility] 55.8 fl 35.1-43.9 [facility] 0.300 % 0.0-0.9 [facility] 0 % 0-5 [facility] 29 mL/min >60 [facility] 35 mL/min >60 [facility] 24.4 RATIO 10-20 [facility] 27.0 mmol/L 21.0-32.0 [facility] 257 ug/dL 250-450 [facility] 33.4 pg/mL 18.4-80.1 [facility] Platelets bldOrdered By: Zandra Au on 09-28-2023 Platelets (Bld) [#/Vol] 147 10*3/uL 150-450 [facility] Serum or plasma albumin aubree urement (mass/volume)Ordered By: Pepe Au on 09-28-2023 Albumin [Mass/Vol] 3.1 g/dL 3.2-5.0 [facility] Serum or plasma calcium aubree urement (mass/volume)Ordered By: Pepe Au on 09-28-2023 Calcium [Mass/Vol] 9.3 mg/dL 8.5-10.1 [facility] Serum or plasma creatinine m easurement (mass/volume)Ordered By: Pepe Au on 09-28-2023 Creatinine [Mass/Vol] 2.34 mg/dL 0.70-1.30 [facility] Comment on above: The validity of the calculated GFR & GFRAA in patients over 70 years has not been determined. Clinical correlation is essential. Serum or plasma ferritin laurie surement (mass/volume)Ordered By: Pepe Au on 09-28-2023 Ferritin [Mass/Vol] 175 ng/mL 26-388 [facility] Serum or plasma iron saturat ion measurement (mass fraction)Ordered By: Pepe Au on 09-28-2023 Iron saturation [Mass fraction] 19.1 % 15.0-55.0 [facility] Serum or plasma urea nitroge n measurement (mass/volume)Ordered By: Pepe Au on 09-28-2023 Urea nitrogen [Mass/Vol] 57 mg/dL 7-18 [facility] Absolute lymphocyte countOrd ered By: Eladio Lucas on 09-22-2023 Lymphocytes Auto (Unsp spec) [#/Vol] 1.44 10*3/uL 0.83-4.51 [facility] Basophil percentageOrdered B y: Eladio Lucas on 09-22-2023 Basophil percentage 129 mg/dL 74-106 [facility] Basophil percentage 137 mmol/L 136-145 [facility] Basophil percentage 4.4 mmol/L 3.5-5.1 [facility] Basophil percentage 105 mmol/L 98-107 [facility] Basophils (Bld) [#/Vol] 7.7 10*3/uL 4.4-11.0 [facility] Basophils (Bld) [#/Vol] 5.3 10*3/uL 2.0-7.7 [facility] Basophils/100 WBC (Bld) 68.7 % 47-70 [facility] Basophils/100 WBC (Bld) 3.7 % 0-5 [facility] Basophils/100 WBC (Bld) 0.4 % 0-1 [facility] Chloride [Moles/Vol] 105 mmol/L 98-107 [facility] Eosinophils/100 WBC (Bld) 3.7 % 0-5 [facility] Glucose [Mass/Vol] 129 mg/dL 74-106 [facility] Comment on above: Fasting Glucose resu lt greater than or equal to 126 mg/dL suggests DIABETES MELLITUS per A.D.A. criteria. Neutrophils (Bld) [#/Vol] 5.3 10*3/uL 2.0-7.7 [facility] Neutrophils/100 WBC (Bld) 68.7 % 47-70 [facility] Potassium [Moles/Vol] 4.4 mmol/L 3.5-5.1 [facility] Sodium [Moles/Vol] 137 mmol/L 136-145 [facility] WBC (Bld) [#/Vol] 7.7 10*3/uL 4.4-11.0 [facility] Blood erythrocytes count (nu mber/volume)Ordered By: Eladio Lucas on 09-22-2023 RBC (Bld) [#/Vol] 3.03 10*6/uL 4.6-6.2 [facility] Blood hemoglobin measurement (mass/volume)Ordered By: Eladio Lucas on 09-22-2023 Hemoglobin (Bld) [Mass/Vol] 9.5 g/dL 13.0-16.5 [facility] Blood lymphocytes/100 leukoc ytesOrdered By: Eladio Lucas on 09-22-2023 Lymphocytes/100 WBC (Bld) 18.8 % 19-41 [facility] Blood monocytes/100 leukocyt esOrdered By: Eladio Lucas on 09-22-2023 Monocytes/100 WBC (Bld) 8.1 % 0-10 [facility] Blood platelet mean volumeOr dered By: Eladio Lucas on 09-22-2023 Platelet mean volume (Bld) [Entitic vol] 11.5 fL 6.2-12.0 [facility] Determination of erythrocyte mean corpuscular volume (MCV)Ordered By: Eladio Lucas on 09-22-2023 MCV (RBC) [Entitic vol] 100.0 fL 80-94 [facility] Glucose Glucometer (dC) [M ass/Vol]Ordered By: Eladio Lucas on 09-22-2023 Glucose [Mass/Vol] 182 mg/dL 74-106 [facility] Comment on above: MANAGEMENT OF PATIEN T CARE PER NURSING PROTOCOL Glucose [Mass/Vol] 197 mg/dL 74-106 [facility] Hematocrit Auto (Bld) [Volum e fraction]Ordered By: Eladio Lucas on 09-22-2023 Hematocrit (Bld) [Volume fraction] 30.3 % 40-54 [facility] Laboratory - Chemistry and C hemistry - challengeOrdered By: Eladio Lucas on 09-22-2023 CO2 [Moles/Vol] 27.0 mmol/L 21.0-32.0 [facility] Urea nitrogen/Creatinine [Mass ratio] 26.5 mg/mg 10 [facility] - Hematology and Cell countsOrdered By: Eladio Lucas on 09-22-2023 Erythrocyte distribution width (RBC) [Entitic vol] 57.0 fL 35.1-43.9 [facility] Erythrocyte distribution width (RBC) [Ratio] 15.6 % 11.6-14.6 [facility] Immature granulocytes/100 WBC (Bld) 0.300 % 0.0-0.9 [facility] Comment on above: IG% - Immature Granu locytes (promyelocytes, myelocytes and metamyelocytes) > 1% indicates that a LEFT SHIFT is Present. MCH (RBC) [Entitic mass] 31.4 pg 27.0-32.0 [facility] Nucleated RBC/100 WBC (Bld) [Ratio] 0 % 0- [facility] MCHC Auto (RBC) [Mass/Vol]Or dered By: Eladio Lucas on 09-22-2023 MCHC (RBC) [Mass/Vol] 31.4 g/dL 32-36 [facility] No Panel InformationOrdered By: Eladio Lucas on 09-22-2023 Estimated Creatinine Clearance Calc 18.02 ml/min [facility] Estimated GFR (MDRD) Amer 29 mL/min >60 [facility] Comment on above: GFR Calc Estimated GFR (MDRD) Non-Af Amer 24 mL/min >60 [facility] Comment on above: Non- GFR Calc 31.4 pg 27.0-32.0 [facility] 15.6 % 11.6-14.6 [facility] 57.0 fl 35.1-43.9 [facility] 0.300 % 0.0-0.9 [facility] 0 % 0-5 [facility] 24 mL/min >60 [facility] 29 mL/min >60 [facility] 18.02 ml/min [facility] 26.5 RATIO 09-16 [facility] 27.0 mmol/L 21.0-32.0 [facility] Platelets bldOrdered By: Kirby duckworthshanti Lance on 09-22-2023 Platelets (Bld) [#/Vol] 132 10*3/uL 150-450 [facility] Serum or plasma calcium aubree urement (mass/volume)Ordered By: Eladio Lucas on 09-22-2023 Calcium [Mass/Vol] 9.0 mg/dL 8.5-10.1 [facility] Serum or plasma creatinine m easurement (mass/volume)Ordered By: Eladio Lucas on 09-22-2023 Creatinine [Mass/Vol] 2.75 mg/dL 0.70-1.30 [facility] Comment on above: The validity of the calculated GFR & GFRAA in patients over 70 years has not been determined. Clinical correlation is essential. Serum or plasma urea nitroge n measurement (mass/volume)Ordered By: Eladio Lucas on 09-22-2023 Urea nitrogen [Mass/Vol] 73 mg/dL 7-18 [facility] Thin prep Papanicolaou smear with manual screeningOrdered By: Eladio Lucas on 09-22-2023 Thin prep Papanicolaou smear with manual screening 5 5-15 [facility] Basophil percentageOrdered B y: Patricia Alcantara on 09-17-2023 Basophil percentage 7.1 g/dL 6.4-8.2 [facility] Basophil percentage 0.70 mg/dL 0.20-1.00 [facility] Bilirubin [Mass/Vol] 0.70 mg/dL 0.20-1.00 [facility] Comment on above: For patients on eltr ombopag therapy, use of Dimension [place] TBIL is not recommended. Protein [Mass/Vol] 7.1 g/dL 6.4-8.2 [facility] Laboratory - Chemistry and C hemistry - challengeOrdered By: Patricia Alcantara on 09-17-2023 ALP [Catalytic activity/Vol] 173 U/L 45-117 [facility] ALT [Catalytic activity/Vol] 17 U/L 16-61 [facility] Globulin (S) [Mass/Vol] 4.3 g/dL 2.2-4.2 [facility] No Panel InformationOrdered By: Patricia Alcantara on 09-17-2023 4.3 g/dL 2.2-4.2 [facility] 173 U/L 45-117 [facility] 17 U/L 16-61 [facility] Serum or plasma albumin aubree urement (mass/volume)Ordered By: Patricia Quinton on 09-17-2023 Albumin [Mass/Vol] 2.8 g/dL 3.2-5.0 [facility] Serum or plasma albumin/glob ulin mass ratioOrdered By: Patricia White on 09-17-2023 Albumin/Globulin [Mass ratio] 0.7 {ratio} 0.9-2.4 [facility] Thin prep Papanicolaou smear with manual screeningOrdered By: Patricia White on 09-17-2023 Thin prep Papanicolaou smear with manual screening 13 U/L 15-37 [facility] Absolute lymphocyte countOrd ered By: Cesar Medina on 09-16-2023 Lymphocytes Auto (Unsp spec) [#/Vol] 1.34 10*3/uL 0.83-4.51 [facility] Basophil percentageOrdered B y: Cesar Medina on 09-16-2023 Basophil percentage 131 mg/dL 74-106 [facility] Basophil percentage 141 mmol/L 136-145 [facility] Basophil percentage 4.8 mmol/L 3.5-5.1 [facility] Basophil percentage 112 mmol/L 98-107 [facility] Basophils (Bld) [#/Vol] 7.1 10*3/uL 4.4-11.0 [facility] Basophils (Bld) [#/Vol] 4.8 10*3/uL 2.0-7.7 [facility] Basophils/100 WBC (Bld) 68.1 % 47-70 [facility] Basophils/100 WBC (Bld) 3.7 % 0-5 [facility] Basophils/100 WBC (Bld) 0.4 % 0-1 [facility] Blood erythrocytes count (nu mber/volume)Ordered By: Cesar Medina on 09-16-2023 RBC (Bld) [#/Vol] 3.16 10*6/uL 4.6-6.2 [facility] Blood hemoglobin measurement (mass/volume)Ordered By: Cesar Medina on 09-16-2023 Hemoglobin (Bld) [Mass/Vol] 10.1 g/dL 13.0-16.5 [facility] Blood lymphocytes/100 leukoc ytesOrdered By: Cesar Medina on 09-16-2023 Lymphocytes/100 WBC (Bld) 19.0 % 19-41 [facility] Blood monocytes/100 leukocyt esOrdered By: Cesar Medina on 09-16-2023 Monocytes/100 WBC (Bld) 8.1 % 0-10 [facility] Blood platelet mean volumeOr dered By: Cesar Medina on 09-16-2023 Platelet mean volume (Bld) [Entitic vol] 11.2 fL 6.2-12.0 [facility] Determination of erythrocyte mean corpuscular volume (MCV)Ordered By: Cesar Medina on 09-16-2023 MCV (RBC) [Entitic vol] 101.9 fL 80-94 [facility] Hematocrit Auto (Bld) [Volum e fraction]Ordered By: Cesar Medina on 09-16-2023 Hematocrit (Bld) [Volume fraction] 32.2 % 40-54 [facility] Laboratory - Chemistry and C hemistry - challengeOrdered By: Patricia Alcantara on 09-16-2023 Magnesium [Mass/Vol] 2.0 mg/dL 1.6-2.6 [facility] Laboratory - Chemistry and C hemistry - challengeOrdered By: Cesar Medina on 09-16-2023 Natriuretic peptide B (Bld) [Mass/Vol] 179.0 pg/mL 0-100 [facility] Laboratory - Microbiology an d Antimicrobial susceptibilityOrdered By: Patricia Alcantara on 09-16-2023 SARS-CoV-2 (COVID-19) RNA ELIANE+probe Ql (Unsp spec) [facility] MCHC Auto (RBC) [Mass/Vol]Or dered By: Cesar Medina on 09-16-2023 MCHC (RBC) [Mass/Vol] 31.4 g/dL 32-36 [facility] No Panel InformationOrdered By: Patricia Alcantara on 09-16-2023 Troponin I High Sensitivity 45 pg/mL 3.0-78.0 [facility] Comment on above: Please Note: New Meghana t Units and Gender Specific Reference Ranges. For more information see Policy Stat Procedure [place] High Sensitivity Troponin (TNIH) and attachments. 45 pg/mL 3.0-78.0 [facility] 2.0 mg/dL 1.6-2.6 [facility] No Panel InformationOrdered By: Cesar Medina on 09-16-2023 46 pg/mL 3.0-78.0 [facility] 32.0 pg 27.0-32.0 [facility] 16.4 % 11.6-14.6 [facility] 60.7 fl 35.1-43.9 [facility] 0.700 % 0.0-0.9 [facility] 0 % 0-5 [facility] 32 mL/min >60 [facility] 39 mL/min >60 [facility] 23.37 ml/min [facility] 25.0 RATIO 09-16 [facility] 22.0 mmol/L 21.0-32.0 [facility] 179.0 pg/mL 0-100 [facility] Platelets bldOrdered By: Jodie Medina on 09-16-2023 Platelets (Bld) [#/Vol] 130 10*3/uL 150-450 [facility] Respiratory pathogens detect ion panel by molecular detection methodOrdered By: Patricia Alcantara on 09-16-2023 Respiratory pathogens DNA and RNA panel ELIANE+probe (Resp) [facility] Serum or plasma calcium aubree urement (mass/volume)Ordered By: Cesar Medina on 09-16-2023 Calcium [Mass/Vol] 8.8 mg/dL 8.5-10.1 [facility] Serum or plasma creatinine m easurement (mass/volume)Ordered By: Cesar Medina on 09-16-2023 Creatinine [Mass/Vol] 2.12 mg/dL 0.70-1.30 [facility] Serum or plasma urea nitroge n measurement (mass/volume)Ordered By: Cesar Medina on 09-16-2023 Urea nitrogen [Mass/Vol] 53 mg/dL 7-18 [facility] Serum procalcitonin measurem entOrdered By: Patricia Alcantara on 09-16-2023 Procalcitonin [Mass/Vol] 0.08 ng/mL 0.00-0.09 [facility] Comment on above: A procalcitonin (PCT ) [...] Papanicolaou smear with manual screening 7 5-15 [facility] Absolute lymphocyte countOrd ered By: James Camarillo on 08-22-2023 Lymphocytes Auto (Unsp spec) [#/Vol] 1.57 10*3/uL 0.83-4.51 [facility] Basophil percentageOrdered B y: James Camarillo on 08-22-2023 Basophil percentage 131 mg/dL 74-106 [facility] Basophil percentage 139 mmol/L 136-145 [facility] Basophil percentage 4.7 mmol/L 3.5-5.1 [facility] Basophil percentage 112 mmol/L 98-107 [facility] Basophils (Bld) [#/Vol] 9.5 10*3/uL 4.4-11.0 [facility] Basophils (Bld) [#/Vol] 7.2 10*3/uL 2.0-7.7 [facility] Basophils/100 WBC (Bld) 75.8 % 47-70 [facility] Basophils/100 WBC (Bld) 1.4 % 0-5 [facility] Basophils/100 WBC (Bld) 0.4 % 0-1 [facility] Blood erythrocytes count (nu mber/volume)Ordered By: James Camarillo on 08-22-2023 RBC (Bld) [#/Vol] 3.28 10*6/uL 4.6-6.2 [facility] Blood hemoglobin measurement (mass/volume)Ordered By: James Camarillo on 08-22-2023 Hemoglobin (Bld) [Mass/Vol] 10.2 g/dL 13.0-16.5 [facility] Blood lymphocytes/100 leukoc ytesOrdered By: James Camarillo on 08-22-2023 Lymphocytes/100 WBC (Bld) 16.5 % 19-41 [facility] Blood monocytes/100 leukocyt esOrdered By: James Camarillo on 08-22-2023 Monocytes/100 WBC (Bld) 5.6 % 0-10 [facility] Blood platelet mean volumeOr dered By: James Camarillo on 08-22-2023 Platelet mean volume (Bld) [Entitic vol] 10.8 fL 6.2-12.0 [facility] COVID-19 virus antigen assay Ordered By: Mikey Macias on 08-22-2023 SARS-CoV-2 (COVID-19) Ag IA.rapid Ql (Resp) [facility] SARS-CoV-2 (COVID-19) Ag IA.rapid Ql (Resp) [facility] Determination of erythrocyte mean corpuscular volume (MCV)Ordered By: James Camarillo on 08-22-2023 MCV (RBC) [Entitic vol] 98.2 fL 80-94 [facility] Glucose Glucometer (dC) [M ass/Vol]Ordered By: Mikey Macias on 08-22-2023 Glucose [Mass/Vol] 170 mg/dL 74-106 [facility] Hematocrit Auto (Bld) [Volum e fraction]Ordered By: James Camarillo on 08-22-2023 Hematocrit (Bld) [Volume fraction] 32.2 % 40-54 [facility] MCHC Auto (RBC) [Mass/Vol]Or dered By: James Camarillo on 08-22-2023 MCHC (RBC) [Mass/Vol] 31.7 g/dL 32-36 [facility] No Panel InformationOrdered By: James Camarillo on 08-22-2023 31.1 pg 27.0-32.0 [facility] 14.2 % 11.6-14.6 [facility] 51.4 fl 35.1-43.9 [facility] 0.300 % 0.0-0.9 [facility] 0 % 0-5 [facility] 26 mL/min >60 [facility] 32 mL/min >60 [facility] 19.74 ml/min [facility] 18.3 RATIO 10-20 [facility] 21.0 mmol/L 21.0-32.0 [facility] Platelets bldOrdered By: Juan Camarillo on 08-22-2023 Platelets (Bld) [#/Vol] 137 10*3/uL 150-450 [facility] Serum or plasma calcium aubree urement (mass/volume)Ordered By: James Camarillo on 08-22-2023 Calcium [Mass/Vol] 8.7 mg/dL 8.5-10.1 [facility] Serum or plasma creatinine m easurement (mass/volume)Ordered By: James Camarillo on 08-22-2023 Creatinine [Mass/Vol] 2.51 mg/dL 0.70-1.30 [facility] Serum or plasma urea nitroge n measurement (mass/volume)Ordered By: James Camarillo on 08-22-2023 Urea nitrogen [Mass/Vol] 46 mg/dL 7-18 [facility] Thin prep Papanicolaou smear with manual screeningOrdered By: James Camarillo on 08-22-2023 Thin prep Papanicolaou smear with manual screening 6 5-15 [facility] Basophil percentageOrdered B y: James Camarillo on 08-21-2023 Basophil percentage 2.6 mg/dL 2.5-4.9 [facility] No Panel InformationOrdered By: James Camarillo on 08-21-2023 1.9 mg/dL 1.6-2.6 [facility] No Panel InformationOrdered By: James Camarillo on 08-20-2023 96.3 Seconds 24.1-36.2 [facility] Basophil percentageOrdered B y: Patricia White on 08-19-2023 Basophil percentage 6.9 g/dL 6.4-8.2 [facility] Basophil percentage 0.50 mg/dL 0.20-1.00 [facility] No Panel InformationOrdered By: Patricia White on 08-19-2023 4.5 g/dL 2.2-4.2 [facility] 110 U/L 45-117 [facility] 15 U/L 16-61 [facility] 5.80 uIU/mL 0.358-3.74 [facility] Serum or plasma albumin aubree urement (mass/volume)Ordered By: Patricia Alcantara on 08-19-2023 Albumin [Mass/Vol] 2.4 g/dL 3.2-5.0 [facility] Serum or plasma albumin/glob ulin mass ratioOrdered By: Patricia Quinton on 08-19-2023 Albumin/Globulin [Mass ratio] 0.5 {ratio} 0.9-2.4 [facility] Thin prep Papanicolaou smear with manual screeningOrdered By: Patricia Alcantara on 08-19-2023 Thin prep Papanicolaou smear with manual screening 17 U/L 15-37 [facility] Absolute lymphocyte countOrd ered By: Farhan Aviless on 08-18-2023 Lymphocytes Auto (Unsp spec) [#/Vol] 1.58 10*3/uL 0.83-4.51 [facility] Absolute lymphocyte countOrd ered By: Jeremy Magallanes on 08-18-2023 Lymphocytes Auto (Unsp spec) [#/Vol] 1.56 10*3/uL 0.83-4.51 [facility] Basophil percentageOrdered B y: Patricia Alcantara on 08-18-2023 Ammonia (P) [Moles/Vol] 14.0 umol/L - [facility] Basophil percentage 14.0 umol/L 11-32 [facility] Basophil percentageOrdered B y: Farhan Bonds on 08-18-2023 Basophil percentage 151 mg/dL 74-106 [facility] Basophil percentage 139 mmol/L 136-145 [facility] Basophil percentage 4.5 mmol/L 3.5-5.1 [facility] Basophil percentage 107 mmol/L 98-107 [facility] Basophils (Bld) [#/Vol] 9.0 10*3/uL 4.4-11.0 [facility] Basophils (Bld) [#/Vol] 6.6 10*3/uL 2.0-7.7 [facility] Basophils/100 WBC (Bld) 73.4 % 47-70 [facility] Basophils/100 WBC (Bld) 1.8 % 0-5 [facility] Basophils/100 WBC (Bld) 0.4 % 0-1 [facility] Chloride [Moles/Vol] 107 mmol/L 98-107 [facility] Eosinophils/100 WBC (Bld) 1.8 % 0-5 [facility] Glucose [Mass/Vol] 151 mg/dL 74-106 [facility] Comment on above: Fasting Glucose resu lt greater than or equal to 126 mg/dL suggests DIABETES MELLITUS per A.D.A. criteria. Neutrophils (Bld) [#/Vol] 6.6 10*3/uL 2.0-7.7 [facility] Neutrophils/100 WBC (Bld) 73.4 % 47-70 [facility] Potassium [Moles/Vol] 4.5 mmol/L 3.5-5.1 [facility] Sodium [Moles/Vol] 139 mmol/L 136-145 [facility] WBC (Bld) [#/Vol] 9.0 10*3/uL 4.4-11.0 [facility] Basophil percentageOrdered B y: Jeremy Magallanes on 08-18-2023 Basophil percentage 144 mg/dL 74-106 [facility] Basophil percentage 7.1 g/dL 6.4-8.2 [facility] Basophil percentage 0.70 mg/dL 0.20-1.00 [facility] Basophil percentage 139 mmol/L 136-145 [facility] Basophil percentage 4.2 mmol/L 3.5-5.1 [facility] Basophil percentage 106 mmol/L 98-107 [facility] Basophils (Bld) [#/Vol] 9.1 10*3/uL 4.4-11.0 [facility] Basophils (Bld) [#/Vol] 6.8 10*3/uL 2.0-7.7 [facility] Basophils/100 WBC (Bld) 74.4 % 47-70 [facility] Basophils/100 WBC (Bld) 1.9 % 0-5 [facility] Basophils/100 WBC (Bld) 0.4 % 0-1 [facility] Bilirubin [Mass/Vol] 0.70 mg/dL 0.20-1.00 [facility] Comment on above: For patients on eltr ombopag therapy, use of Dimension [place] TBIL is not recommended. Chloride [Moles/Vol] 106 mmol/L 98-107 [facility] Eosinophils/100 WBC (Bld) 1.9 % 0-5 [facility] Glucose [Mass/Vol] 144 mg/dL 74-106 [facility] Comment on above: Fasting Glucose resu lt greater than or equal to 126 mg/dL suggests DIABETES MELLITUS per A.D.A. criteria. Neutrophils (Bld) [#/Vol] 6.8 10*3/uL 2.0-7.7 [facility] Neutrophils/100 WBC (Bld) 74.4 % 47-70 [facility] Potassium [Moles/Vol] 4.2 mmol/L 3.5-5.1 [facility] Protein [Mass/Vol] 7.1 g/dL 6.4-8.2 [facility] Sodium [Moles/Vol] 139 mmol/L 136-145 [facility] WBC (Bld) [#/Vol] 9.1 10*3/uL 4.4-11.0 [facility] Blood erythrocytes count (nu mber/volume)Ordered By: Farhan Bonds on 08-18-2023 RBC (Bld) [#/Vol] 3.47 10*6/uL 4.6-6.2 [facility] Blood erythrocytes count (nu mber/volume)Ordered By: Jeremy Magallanes on 08-18-2023 RBC (Bld) [#/Vol] 3.42 10*6/uL 4.6-6.2 [facility] Blood hemoglobin measurement (mass/volume)Ordered By: Farhan Bonds on 08-18-2023 Hemoglobin (Bld) [Mass/Vol] 10.8 g/dL 13.0-16.5 [facility] Blood hemoglobin measurement (mass/volume)Ordered By: Jeremy Magallanes on 08-18-2023 Hemoglobin (Bld) [Mass/Vol] 10.9 g/dL 13.0-16.5 [facility] Blood lymphocytes/100 leukoc ytesOrdered By: Farhan Bonds on 08-18-2023 Lymphocytes/100 WBC (Bld) 17.6 % - [facility] Blood lymphocytes/100 leukoc ytesOrdered By: Jeremy Magallanes on 08-18-2023 Lymphocytes/100 WBC (Bld) 17.1 % [facility] Blood monocytes/100 leukocyt esOrdered By: Farhan Bonds on 08-18-2023 Monocytes/100 WBC (Bld) 6.4 % 0-10 [facility] Blood monocytes/100 leukocyt esOrdered By: Jeremy Magallanes on 08-18-2023 Monocytes/100 WBC (Bld) 5.9 % 0-10 [facility] Blood platelet mean volumeOr dered By: Farhan Bonds on 08-18-2023 Platelet mean volume (Bld) [Entitic vol] 11.3 fL 6.2-12.0 [facility] Blood platelet mean volumeOr dered By: Jeremy Magallanes on 08-18-2023 Platelet mean volume (Bld) [Entitic vol] 10.5 fL 6.2-12.0 [facility] Determination of erythrocyte mean corpuscular volume (MCV)Ordered By: Farhan Bonds on 08-18-2023 MCV (RBC) [Entitic vol] 98.8 fL 80-94 [facility] Determination of erythrocyte mean corpuscular volume (MCV)Ordered By: Jeremy Magallanes on 08-18-2023 MCV (RBC) [Entitic vol] 98.0 fL 80-94 [facility] Glucose Glucometer (dC) [M ass/Vol]Ordered By: Jeremy Magallanes on 08-18-2023 Glucose [Mass/Vol] 147 mg/dL 74-106 [facility] Comment on above: MANAGEMENT OF PATIEN T CARE PER NURSING PROTOCOL HCO3 (BldA) [Moles/Vol]Order ed By: Patricia Alcantara on 08-18-2023 HCO3 (Bld) [Moles/Vol] 26 mmol/L 22-26 [facility] Hematocrit Auto (Bld) [Volum e fraction]Ordered By: Farhan Bonds on 08-18-2023 Hematocrit (Bld) [Volume fraction] 34.3 % 40-54 [facility] Hematocrit Auto (Bld) [Volum e fraction]Ordered By: Jeremy Magallanes on 08-18-2023 Hematocrit (Bld) [Volume fraction] 33.5 % 40-54 [facility] INR in Blood by Coagulation assayOrdered By: Patricia Alcantara on 08-18-2023 INR Coag (Bld) [Relative time] 1.6 {INR} [facility] Laboratory - Chemistry and C hemistry - challengeOrdered By: Patircia Alcantara on 08-18-2023 Magnesium [Mass/Vol] 1.9 mg/dL 1.6-2.6 [facility] Laboratory - Chemistry and C hemistry - challengeOrdered By: Farhan Bonds on 08-18-2023 CO2 [Moles/Vol] 29.0 mmol/L 21.0-32.0 [facility] Urea nitrogen/Creatinine [Mass ratio] 19.7 mg/mg 10- [facility] Laboratory - Chemistry and C hemistry - challengeOrdered By: Jereym Magallanes on 08-18-2023 ALP [Catalytic activity/Vol] 130 U/L 45-117 [facility] ALT [Catalytic activity/Vol] 18 U/L 16-61 [facility] CO2 [Moles/Vol] 27.0 mmol/L 21.0-32.0 [facility] Globulin (S) [Mass/Vol] 4.1 g/dL 2.2-4.2 [facility] Urea nitrogen/Creatinine [Mass ratio] 19.5 mg/mg 10- [facility] Laboratory - CoagulationOrde red By: Patricia Alcantara on 08-18-2023 aPTT Coag (Bld) [Time] 40.0 s 24.1-36.2 [facility] PT Coag (PPP) [Time] 18.9 s 11.7-14.9 [facility] Laboratory - Hematology and Cell countsOrdered By: Farhan Bonds on 08-18-2023 Erythrocyte distribution width (RBC) [Entitic vol] 51.6 fL 35.1-43.9 [facility] Erythrocyte distribution width (RBC) [Ratio] 14.3 % 11.6-14.6 [facility] Immature granulocytes/100 WBC (Bld) 0.400 % 0.0-0.9 [facility] Comment on above: IG% - Immature Granu locytes (promyelocytes, myelocytes and metamyelocytes) > 1% indicates that a LEFT SHIFT is Present. MCH (RBC) [Entitic mass] 31.1 pg 27.0-32.0 [facility] Nucleated RBC/100 WBC (Bld) [Ratio] 0 % 0-5 [facility] Laboratory - Hematology and Cell countsOrdered By: Jeremy Magallanes on 08-18-2023 Erythrocyte distribution width (RBC) [Entitic vol] 50.4 fL 35.1-43.9 [facility] Erythrocyte distribution width (RBC) [Ratio] 14.0 % 11.6-14.6 [facility] Immature granulocytes/100 WBC (Bld) 0.300 % 0.0-0.9 [facility] Comment on above: IG% - Immature Granu locytes (promyelocytes, myelocytes and metamyelocytes) > 1% indicates that a LEFT SHIFT is Present. MCH (RBC) [Entitic mass] 31.9 pg 27.0-32.0 [facility] Nucleated RBC/100 WBC (Bld) [Ratio] 0 % 0-5 [facility] MCHC Auto (RBC) [Mass/Vol]Or dered By: Farhan Bonds on 08-18-2023 MCHC (RBC) [Mass/Vol] 31.5 g/dL 32-36 [facility] MCHC Auto (RBC) [Mass/Vol]Or dered By: Jeremy Magallaens on 08-18-2023 MCHC (RBC) [Mass/Vol] 32.5 g/dL 32-36 [facility] No Panel InformationOrdered By: Patricia Alcantara on 08-18-2023 AYE [facility] Not entered [facility] Cannula [facility] 4.0 [facility] 47.0 mmHg 41-51 [facility] 1 mmol/L -1.0-3.5 [facility] 52 % 50-70 [facility] 28 mmol/L 23-33 [facility] 18.9 SECONDS 11.7-14.9 [facility] 40.0 Seconds 24.1-36.2 [facility] 1.9 mg/dL 1.6-2.6 [facility] No Panel InformationOrdered By: Farhan Bonds on 08-18-2023 Estimated Creatinine Clearance Calc 22.22 ml/min [facility] Estimated GFR (MDRD) Amer 36 mL/min >60 [facility] Comment on above: GFR Calc Estimated GFR (MDRD) Non-Af Amer 30 mL/min >60 [facility] Comment on above: Non- GFR Calc Troponin I High Sensitivity 78 pg/mL 3.0-78.0 [facility] Comment on above: Please Note: New Meghana t Units and Gender Specific Reference Ranges. For more information see Policy Stat Procedure [place] High Sensitivity Troponin (TNIH) and attachments. 31.1 pg 27.0-32.0 [facility] 14.3 % 11.6-14.6 [facility] 51.6 fl 35.1-43.9 [facility] 0.400 % 0.0-0.9 [facility] 0 % 0-5 [facility] 30 mL/min >60 [facility] 36 mL/min >60 [facility] 22.22 ml/min [facility] 19.7 RATIO 10-20 [facility] 78 pg/mL 3.0-78.0 [facility] 29.0 mmol/L 21.0-32.0 [facility] No Panel InformationOrdered By: Jeremy Magallanes on 08-18-2023 Estimated Creatinine Clearance Calc 22.52 ml/min [facility] Estimated GFR (MDRD) Amer 37 mL/min >60 [facility] Comment on above: GFR Calc Estimated GFR (MDRD) Non-Af Amer 31 mL/min >60 [facility] Comment on above: Non- GFR Calc 31.9 pg 27.0-32.0 [facility] 14.0 % 11.6-14.6 [facility] 50.4 fl 35.1-43.9 [facility] 0.300 % 0.0-0.9 [facility] 0 % 0-5 [facility] 31 mL/min >60 [facility] 37 mL/min >60 [facility] 22.52 ml/min [facility] 19.5 RATIO 10-20 [facility] 4.1 g/dL 2.2-4.2 [facility] 130 U/L 45-117 [facility] 18 U/L 16-61 [facility] 27.0 mmol/L 21.0-32.0 [facility] PO2 venousOrdered By: Patricia Alcantara on 08-18-2023 Oxygen (BldV) [Partial pressure] 29 mm[Hg] 25-40 [facility] Platelets bldOrdered By: Mariusz Bonds on 08-18-2023 Platelets (Bld) [#/Vol] 153 10*3/uL 150-450 [facility] Platelets bldOrdered By: Jeremy Magallanes on 08-18-2023 Platelets (Bld) [#/Vol] 147 10*3/uL 150-450 [facility] Serum or plasma albumin aubree urement (mass/volume)Ordered By: Jeremy Magallanes on 08-18-2023 Albumin [Mass/Vol] 3.0 g/dL 3.2-5.0 [facility] Serum or plasma albumin/glob ulin mass ratioOrdered By: Jeremy Magallanes on 08-18-2023 Albumin/Globulin [Mass ratio] 0.7 {ratio} 0.9-2.4 [facility] Serum or plasma calcium aubree urement (mass/volume)Ordered By: Farhan Bonds on 08-18-2023 Calcium [Mass/Vol] 9.6 mg/dL 8.5-10.1 [facility] Serum or plasma calcium aubree urement (mass/volume)Ordered By: Jeremy Magallanes on 08-18-2023 Calcium [Mass/Vol] 9.4 mg/dL 8.5-10.1 [facility] Serum or plasma creatinine m easurement (mass/volume)Ordered By: Farhan Bonds on 08-18-2023 Creatinine [Mass/Vol] 2.23 mg/dL 0.70-1.30 [facility] Comment on above: The validity of the calculated GFR & GFRAA in patients over 70 years has not been determined. Clinical correlation is essential. Serum or plasma creatinine m easurement (mass/volume)Ordered By: Jeremy Magallanes on 08-18-2023 Creatinine [Mass/Vol] 2.20 mg/dL 0.70-1.30 [facility] Comment on above: The validity of the calculated GFR & GFRAA in patients over 70 years has not been determined. Clinical correlation is essential. Serum or plasma urea nitroge n measurement (mass/volume)Ordered By: Farhan Bonds on 08-18-2023 Urea nitrogen [Mass/Vol] 44 mg/dL 06-14 [facility] Serum or plasma urea nitroge n measurement (mass/volume)Ordered By: Jeremy Magallanes on 08-18-2023 Urea nitrogen [Mass/Vol] 43 mg/dL 06-14 [facility] Thin prep Papanicolaou smear with manual screeningOrdered By: Farhan Bonds on 08-18-2023 Thin prep Papanicolaou smear with manual screening 3 - [facility] Thin prep Papanicolaou smear with manual screeningOrdered By: Jeremy Magallanes on 08-18-2023 Thin prep Papanicolaou smear with manual screening 18 U/L 15- [facility] Thin prep Papanicolaou smear with manual screening 6 04-11 [facility] pH measurementOrdered By: Dia Alcantara on 08-18-2023 pH (Unsp spec) 7.36 [pH] 7.32-7.42 [facility] COVID-19 virus antigen assay Ordered By: Jeremy Magallanes on 08-17-2023 SARS-CoV-2 (COVID-19) Ag IA.rapid Ql (Resp) [facility] SARS-CoV-2 (COVID-19) Ag IA.rapid Ql (Resp) [facility] Glucose Glucometer (BldC) [M ass/Vol]Ordered By: Jeremy Magallanes on 08-11-2023 Glucose [Mass/Vol] 105 mg/dL 74-106 [facility] Comment on above: MANAGEMENT OF PATIEN T CARE PER NURSING PROTOCOL Absolute lymphocyte countOrd ered By: Jeremy Magallanes on 08-10-2023 Lymphocytes Auto (Unsp spec) [#/Vol] 1.95 10*3/uL 0.83-4.51 [facility] Basophil percentageOrdered B y: Jeremy Magallanes on 08-10-2023 Basophils/100 WBC (Bld) 0.5 % 0-1 [facility] Chloride [Moles/Vol] 106 mmol/L 98-107 [facility] Eosinophils/100 WBC (Bld) 2.2 % 0-5 [facility] Glucose [Mass/Vol] 188 mg/dL 74-106 [facility] Comment on above: Fasting Glucose resu lt greater than or equal to 126 mg/dL suggests DIABETES MELLITUS per A.D.A. criteria. Neutrophils (Bld) [#/Vol] 6.0 10*3/uL 2.0-7.7 [facility] Neutrophils/100 WBC (Bld) 69.3 % 47-70 [facility] Potassium [Moles/Vol] 4.1 mmol/L 3.5-5.1 [facility] Sodium [Moles/Vol] 138 mmol/L 136-145 [facility] WBC (Bld) [#/Vol] 8.7 10*3/uL 4.4-11.0 [facility] Blood erythrocytes count (nu mber/volume)Ordered By: Jeremy Magallanes on 08-10-2023 RBC (Bld) [#/Vol] 3.49 10*6/uL 4.6-6.2 [facility] Blood hemoglobin measurement (mass/volume)Ordered By: Jeremy Magallanes on 08-10-2023 Hemoglobin (Bld) [Mass/Vol] 10.9 g/dL 13.0-16.5 [facility] Blood lymphocytes/100 leukoc ytesOrdered By: Jeremy Magallanes on 08-10-2023 Lymphocytes/100 WBC (Bld) 22.5 % 19-41 [facility] Blood monocytes/100 leukocyt esOrdered By: Jeremy Magallanes on 08-10-2023 Monocytes/100 WBC (Bld) 5.2 % 0-10 [facility] Blood platelet mean volumeOr dered By: Jeremy Magallanes on 08-10-2023 Platelet mean volume (Bld) [Entitic vol] 10.6 fL 6.2-12.0 [facility] Determination of erythrocyte mean corpuscular volume (MCV)Ordered By: Jeremy Magallanes on 08-10-2023 MCV (RBC) [Entitic vol] 99.7 fL 80-94 [facility] Hematocrit Auto (Bld) [Volum e fraction]Ordered By: Jeremy Magallanes on 08-10-2023 Hematocrit (Bld) [Volume fraction] 34.8 % 40-54 [facility] Laboratory - Chemistry and C hemistry - challengeOrdered By: Jeremy Magallanes on 08-10-2023 CO2 [Moles/Vol] 26.0 mmol/L 21.0-32.0 [facility] Urea nitrogen/Creatinine [Mass ratio] 22.1 mg/mg 10-20 [facility] Laboratory - Hematology and Cell countsOrdered By: Jeremy Magallanes on 08-10-2023 Erythrocyte distribution width (RBC) [Entitic vol] 51.8 fL 35.1-43.9 [facility] Erythrocyte distribution width (RBC) [Ratio] 14.4 % 11.6-14.6 [facility] Immature granulocytes/100 WBC (Bld) 0.300 % 0.0-0.9 [facility] Comment on above: IG% - Immature Granu locytes (promyelocytes, myelocytes and metamyelocytes) > 1% indicates that a LEFT SHIFT is Present. MCH (RBC) [Entitic mass] 31.2 pg 27.0-32.0 [facility] Nucleated RBC/100 WBC (Bld) [Ratio] 0 % 0-5 [facility] MCHC Auto (RBC) [Mass/Vol]Or dered By: Jeremy Magallanes on 08-10-2023 MCHC (RBC) [Mass/Vol] 31.3 g/dL 32-36 [facility] No Panel InformationOrdered By: Jeremy Magallanes on 08-10-2023 Estimated Creatinine Clearance Calc 21.08 ml/min [facility] Estimated GFR (MDRD) Amer 34 mL/min >60 [facility] Comment on above: GFR Calc Estimated GFR (MDRD) Non-Af Amer 28 mL/min >60 [facility] Comment on above: Non- GFR Calc Platelets bldOrdered By: Jeremy Magallanes on 08-10-2023 Platelets (Bld) [#/Vol] 136 10*3/uL 150-450 [facility] Serum or plasma calcium aubree urement (mass/volume)Ordered By: Jeremy Magallanes on 08-10-2023 Calcium [Mass/Vol] 9.7 mg/dL 8.5-10.1 [facility] Serum or plasma creatinine m easurement (mass/volume)Ordered By: Jeremy Magallanes on 08-10-2023 Creatinine [Mass/Vol] 2.35 mg/dL 0.70-1.30 [facility] Comment on above: The validity of the calculated GFR & GFRAA in patients over 70 years has not been determined. Clinical correlation is essential. Serum or plasma urea nitroge n measurement (mass/volume)Ordered By: Jeremy Magallanes on 08-10-2023 Urea nitrogen [Mass/Vol] 52 mg/dL 7-18 [facility] Thin prep Papanicolaou smear with manual screeningOrdered By: Jeremy Magallanes on 08-10-2023 Thin prep Papanicolaou smear with manual screening 6 5-15 [facility] COVID-19 virus antigen assay Ordered By: Jeremy Magallanes on 08-09-2023 SARS-CoV-2 (COVID-19) Ag IA.rapid Ql (Resp) [facility] Glucose Glucometer (dC) [M ass/Vol]Ordered By: Jeremy Magallanes on 07-27-2023 Glucose [Mass/Vol] 83 mg/dL 74-106 [facility] Comment on above: MANAGEMENT OF PATIEN T CARE PER NURSING PROTOCOL Absolute lymphocyte countOrd ered By: Jeremy Magallanes on 07-25-2023 Lymphocytes Auto (Unsp spec) [#/Vol] 1.42 10*3/uL 0.83-4.51 [facility] Basophil percentageOrdered B y: Jeremy Magallanes on 07-25-2023 Basophils/100 WBC (Bld) 0.5 % 0-1 [facility] Chloride [Moles/Vol] 114 mmol/L 98-107 [facility] Eosinophils/100 WBC (Bld) 4.1 % 0-5 [facility] Glucose [Mass/Vol] 92 mg/dL 74-106 [facility] Neutrophils (Bld) [#/Vol] 5.4 10*3/uL 2.0-7.7 [facility] Neutrophils/100 WBC (Bld) 69.0 % 47-70 [facility] Potassium [Moles/Vol] 4.3 mmol/L 3.5-5.1 [facility] Sodium [Moles/Vol] 142 mmol/L 136-145 [facility] WBC (Bld) [#/Vol] 7.8 10*3/uL 4.4-11.0 [facility] Blood erythrocytes count (nu mber/volume)Ordered By: Jeremy Magallanes on 07-25-2023 RBC (Bld) [#/Vol] 2.97 10*6/uL 4.6-6.2 [facility] Blood hemoglobin measurement (mass/volume)Ordered By: [employer] on 07-25-2023 Hemoglobin (Bld) [Mass/Vol] 9.6 g/dL 13.0-16.5 [facility] Blood lymphocytes/100 leukoc ytesOrdered By: [employer] [facility] [employer] on 07-25-2023 Lymphocytes/100 WBC (Bld) 18.2 % 19-41 [facility] Blood monocytes/100 leukocyt esOrdered By: [employer] on 07-25-2023 Monocytes/100 WBC (Bld) 7.8 % 0-10 [facility] Blood platelet mean volumeOr dered By: [employer] on 07-25-2023 Platelet mean volume (Bld) [Entitic vol] 10.7 fL 6.2-12.0 [facility] Determination of erythrocyte mean corpuscular volume (MCV)Ordered By: [employer] on 07-25-2023 MCV (RBC) [Entitic vol] 99.0 fL 80-94 [facility] Hematocrit Auto (Bld) [Volum e fraction]Ordered By: [employer] on 07-25-2023 Hematocrit (Bld) [Volume fraction] 29.4 % 40-54 [facility] Laboratory - Chemistry and C hemistry - challengeOrdered By: [employer] [facility] [employer] [facility] 07-25-2023 CO2 [Moles/Vol] 23.0 mmol/L 21.0-32.0 [facility] Urea nitrogen/Creatinine [Mass ratio] 27.4 mg/mg 10-20 [facility] Laboratory - Hematology and Cell countsOrdered By: [employer] 07-25-2023 Erythrocyte distribution width (RBC) [Entitic vol] 55.1 fL 35.1-43.9 [facility] Erythrocyte distribution width (RBC) [Ratio] 15.3 % 11.6-14.6 [facility] Immature granulocytes/100 WBC (Bld) 0.400 % 0.0-0.9 [facility] Comment on above: IG% - Immature Granu locytes (promyelocytes, myelocytes and metamyelocytes) > 1% indicates that a LEFT SHIFT is Present. MCH (RBC) [Entitic mass] 32.3 pg 27.0-32.0 [facility] Nucleated RBC/100 WBC (Bld) [Ratio] 0 % [facility] ([facility] [Mass/Vol]Or dered By: Jeremy Magallanes on 07-25-2023 MCHC (RBC) [Mass/Vol] 32.7 g/dL 32-36 [facility] Comment on above: Delta: 31.1 on 07/21-1814 No Panel InformationOrdered By: Jeremy Magallanes on 07-25-2023 Estimated Creatinine Clearance Calc 20.90 ml/min [facility] Estimated GFR (MDRD) Amer 34 mL/min >60 [facility] Comment on above: GFR Calc Estimated GFR (MDRD) Non-Af Amer 28 mL/min >60 [facility] Comment on above: Non- GFR Calc Platelets bldOrdered By: Jeremy Magallanes on 07-25-2023 Platelets (Bld) [#/Vol] 135 10*3/uL 150-450 [facility] Serum or plasma calcium aubree urement (mass/volume)Ordered By: Jeremy Magallanes on 07-25-2023 Calcium [Mass/Vol] 9.1 mg/dL 8.5-10.1 [facility] Serum or plasma creatinine m easurement (mass/volume)Ordered By: Jeremy Magallanes on 07-25-2023 Creatinine [Mass/Vol] 2.37 mg/dL 0.70-1.30 [facility] Comment on above: The validity of the calculated GFR & GFRAA in patients over 70 years has not been determined. Clinical correlation is essential. Serum or plasma urea nitroge n measurement (mass/volume)Ordered By: Jeremy Magallanes on 07-25-2023 Urea nitrogen [Mass/Vol] 65 mg/dL 7-18 [facility] Thin prep Papanicolaou smear with manual screeningOrdered By: Jeremy Magallanes on 07-25-2023 Thin prep Papanicolaou smear with manual screening 5 5-15 [facility] Basophil percentageOrdered B y: Jeremy Magallanes on 07-21-2023 Basophil percentage 0-5 SEEN /hpf 0-5 [facility] Bilirubin Test strip Ql (U)O rdered By: Jeremy Magallanes on 07-21-2023 Bilirubin Ql (U) Negative Negative [facility] Culture, urineOrdered By: Jono Magallanes on 07-21-2023 Bacteria identified Cx Nom (U) Culture exhibits no growth. [facility] Bacteria identified Cx Nom (U) Culture exhibits no growth. [facility] Ketones Test strip Ql (U)Ord ered By: Jeremy Magallanes on 07-21-2023 Ketones Ql (U) Negative Negative [facility] Mucus LM Ql (Urine sed)Order ed By: Jeremy Magallanes on 07-21-2023 Mucus Ql (Urine sed) 0 SEEN /hpf [facility] Nitrite Test strip Ql (U)Ord ered By: Jeremy Magallanes on 07-21-2023 Nitrite Ql (U) Negative Negative [facility] Protein Test strip Ql (U)Ord ered By: Jeremy Magallanes on 07-21-2023 Protein Ql (U) 30 mg/dl Negative [facility] Squamous epithelial cells de tection in urine sediment by light microscopyOrdered By: Jeremy Magallanes on 07-21-2023 Epithelial cells.squamous LM Ql (Urine sed) 0 SEEN /hpf 0-5 [facility] Urine blood detectionOrdered By: Jeremy Magallanes on 07-21-2023 RBC Ql (U) Negative Negative [facility] RBC Ql (U) 0 SEEN /hpf 0-5 [facility] Urine clarityOrdered By: Jeremy Magallanes on 07-21-2023 Clarity (U) Clear Clear [facility] Urine color determinationOrd ered By: Jeremy Magallanes on 07-21-2023 Color (U) Yellow Yellow [facility] Urine glucose detectionOrder ed By: Jeremy Magallanes on 07-21-2023 Glucose Ql (U) Normal mg/dl Normal [facility] Urine leukocyte esterase det ection by dipstickOrdered By: Jeremy Magallanes on 07-21-2023 Leukocyte esterase Test strip Ql (U) Negative Negative [facility] Urine pHOrdered By: Jeremy Magallanes on 07-21-2023 pH (U) 5.0 [pH] 5.0 - 8.0 [facility] Urine sediment bacteria coun t by microscopy (number/high power field)Ordered By: Jeremy Magallanes on 07-21-2023 Bacteria LM.HPF (Urine sed) [#/Area] 0 /[HPF] None Seen [facility] Urine specific gravity measu rementOrdered By: Jeremy Magallanes on 07-21-2023 Specific gravity (U) [Rel density] 1.015 1.002-1.030 [facility] Urobilinogen Auto test strip Ql (U)Ordered By: Jeremy Magallanes on 07-21-2023 Urobilinogen Ql (U) Normal mg/dl Normal [facility] Laboratory - Chemistry and C hemistry - challengeOrdered By: Jeremy Magallanes on 07-12-2023 Natriuretic peptide B (Bld) [Mass/Vol] 174.5 pg/mL 0-100 [facility] No Panel InformationOrdered By: Jeremy Magallanes on 07-12-2023 174.5 pg/mL 0-100 [facility] Levetiracetam (Keppra) Level 39.0 ug/mL 10.0-40.0 [facility] Comment on above: Performed at: [address] [id number] Director: Suzy Adames MD, Phone: [phone] 39.0 ug/mL 10.0-40.0 [facility] Absolute lymphocyte countOrd ered By: Jeremy Magallanes on 07-11-2023 Lymphocytes Auto (Unsp spec) [#/Vol] 0.89 10*3/uL 0.83-4.51 [facility] Basophil percentageOrdered B y: Jeremy Magallanes on 07-11-2023 Basophil percentage 141 mg/dL 74-106 [facility] Basophil percentage 136 mmol/L 136-145 [facility] Basophil percentage 5.0 mmol/L 3.5-5.1 [facility] Basophil percentage 109 mmol/L 98-107 [facility] Basophils (Bld) [#/Vol] 9.1 10*3/uL 4.4-11.0 [facility] Basophils (Bld) [#/Vol] 7.0 10*3/uL 2.0-7.7 [facility] Basophils/100 WBC (Bld) 76.7 % 47-70 [facility] Basophils/100 WBC (Bld) 3.2 % 0-5 [facility] Basophils/100 WBC (Bld) 0.4 % 0-1 [facility] Blood erythrocytes count (nu mber/volume)Ordered By: Jeremy Magallanes on 07-11-2023 RBC (Bld) [#/Vol] 3.18 10*6/uL 4.6-6.2 [facility] Blood hemoglobin measurement (mass/volume)Ordered By: Jeremy Magallanes on 07-11-2023 Hemoglobin (Bld) [Mass/Vol] 10.2 g/dL 13.0-16.5 [facility] Blood lymphocytes/100 leukoc ytesOrdered By: Jeremy Magallanes on 07-11-2023 Lymphocytes/100 WBC (Bld) 9.8 % 19-41 [facility] Blood monocytes/100 leukocyt esOrdered By: Jeremy Magallanes on 07-11-2023 Monocytes/100 WBC (Bld) 9.5 % 0-10 [facility] Blood platelet mean volumeOr dered By: Jeremy Magallanes 07-11-2023 Platelet mean volume (Bld) [Entitic vol] 10.5 fL 6.2-12.0 [facility] Determination of erythrocyte mean corpuscular volume (MCV)Ordered By: Jeremy Magallanes 07-11-2023 MCV (RBC) [Entitic vol] 100.0 fL 80-94 [facility] Glucose Glucometer (BldC) [M ass/Vol]Ordered By: Jeremy Magallanes 07-11-2023 Glucose [Mass/Vol] 132 mg/dL 74-106 [facility] Hematocrit Auto (Bld) [Volum e fraction]Ordered By: Jeremy Magallanes 07-11-2023 Hematocrit (Bld) [Volume fraction] 31.8 % 40-54 [facility] MCHC Auto (RBC) [Mass/Vol]Or dered By: Jeremy Magallanes 07-11-2023 MCHC (RBC) [Mass/Vol] 32.1 g/dL 32-36 [facility] No Panel InformationOrdered By: Jeremy Magallanes 07-11-2023 32.1 pg 27.0-32.0 [facility] 15.2 % 11.6-14.6 [facility] 53.7 fl 35.1-43.9 [facility] 0.400 % 0.0-0.9 [facility] 0 % 0-5 [facility] 28 mL/min >60 [facility] 33 mL/min >60 [facility] 20.56 ml/min [facility] 27.8 RATIO 10-20 [facility] 20.0 mmol/L 21.0-32.0 [facility] Platelets bldOrdered By: Jeremy Magallanes on 07-11-2023 Platelets (Bld) [#/Vol] 161 10*3/uL 150-450 [facility] Serum or plasma calcium aubree urement (mass/volume)Ordered By: Jeremy Magallanes on 07-11-2023 Calcium [Mass/Vol] 9.0 mg/dL 8.5-10.1 [facility] Serum or plasma creatinine m easurement (mass/volume)Ordered By: Jeremy Magallanes on 07-11-2023 Creatinine [Mass/Vol] 2.41 mg/dL 0.70-1.30 [facility] Serum or plasma urea nitroge n measurement (mass/volume)Ordered By: Jeremy Magallanes on 07-11-2023 Urea nitrogen [Mass/Vol] 67 mg/dL 7-18 [facility] Thin prep Papanicolaou smear with manual screeningOrdered By: Jeremy Magallanes on 07-11-2023 Thin prep Papanicolaou smear with manual screening 7 5-15 [facility] Basophil percentageOrdered B y: Jeremy Magallanes on 07-08-2023 Basophil percentage 6.7 g/dL 6.4-8.2 [facility] Basophil percentage 1.10 mg/dL 0.20-1.00 [facility] Bilirubin [Mass/Vol] 1.10 mg/dL 0.20-1.00 [facility] Comment on above: For patients on eltr ombopag therapy, use of Dimension [place] TBIL is not recommended. Protein [Mass/Vol] 6.7 g/dL 6.4-8.2 [facility] Laboratory - Chemistry and C hemistry - challengeOrdered By: Jeremy Magallanes on 07-08-2023 ALP [Catalytic activity/Vol] 144 U/L 45-117 [facility] ALT [Catalytic activity/Vol] 19 U/L 16-61 [facility] Globulin (S) [Mass/Vol] 4.0 g/dL 2.2-4.2 [facility] No Panel InformationOrdered By: Jeremy Magallanes on 07-08-2023 4.0 g/dL 2.2-4.2 [facility] 144 U/L 45-117 [facility] 19 U/L 16-61 [facility] 329.5 pg/mL 0-100 [facility] Serum or plasma albumin aubree urement (mass/volume)Ordered By: Jeremy Magallanes on 07-08-2023 Albumin [Mass/Vol] 2.7 g/dL 3.2-5.0 [facility] Serum or plasma albumin/glob ulin mass ratioOrdered By: Jeremy Magallanes on 07-08-2023 Albumin/Globulin [Mass ratio] 0.7 {ratio} 0.9-2.4 [facility] Thin prep Papanicolaou smear with manual screeningOrdered By: Jeremy Magallanes on 07-08-2023 Thin prep Papanicolaou smear with manual screening 20 U/L 15-37 [facility] Basophil percentageOrdered B y: Jeremy Magallanes on 07-07-2023 Basophil percentage 0 SEEN /hpf 0-5 [facility] Bilirubin Test strip Ql (U)O rdered By: Jeremy Magallanes on 07-07-2023 Bilirubin Ql (U) Negative Negative [facility] Culture, urineOrdered By: Jono Magallanes on 07-07-2023 Bacteria identified Cx Nom (U) Culture exhibits no growth. [facility] Ketones Test strip Ql (U)Ord ered By: Jeremy Magallanes on 07-07-2023 Ketones Ql (U) Negative Negative [facility] Mucus LM Ql (Urine sed)Order ed By: Jeremy Magallanes on 07-07-2023 Mucus Ql (Urine sed) 0 SEEN /hpf [facility] Nitrite Test strip Ql (U)Ord ered By: Jeremy Magallanes on 07-07-2023 Nitrite Ql (U) Negative Negative [facility] Protein Test strip Ql (U)Ord ered By: Jeremy Magallanes on 07-07-2023 Protein Ql (U) 100 mg/dl Negative [facility] Squamous epithelial cells de tection in urine sediment by light microscopyOrdered By: Jeremy Magallanes on 07-07-2023 Epithelial cells.squamous LM Ql (Urine sed) 0 SEEN /hpf 0-5 [facility] Urine blood detectionOrdered By: Jeremy Magallanes on 07-07-2023 RBC Ql (U) 250 /ul Negative [facility] RBC Ql (U) 5-10 SEEN /hpf 0-5 [facility] Urine clarityOrdered By: Jeremy Magallanes on 07-07-2023 Clarity (U) Clear Clear [facility] Urine color determinationOrd ered By: Jeremy Magallanes on 07-07-2023 Color (U) Yellow Yellow [facility] Urine glucose detectionOrder ed By: Jeremy Magallanes on 07-07-2023 Glucose Ql (U) Normal mg/dl Normal [facility] Urine leukocyte esterase det ection by dipstickOrdered By: Jeremy Magallanes on 07-07-2023 Leukocyte esterase Test strip Ql (U) Negative Negative [facility] Urine pHOrdered By: Jeremy Magallanes on 07-07-2023 pH (U) 6.0 [pH] 5.0 - 8.0 [facility] Urine sediment bacteria coun t by microscopy (number/high power field)Ordered By: Jeremy Magallanes on 07-07-2023 Bacteria LM.HPF (Urine sed) [#/Area] 0 /[HPF] None Seen [facility] Urine specific gravity measu rementOrdered By: Jeremy Magallanes on 07-07-2023 Specific gravity (U) [Rel density] 1.015 1.002-1.030 [facility] Urobilinogen Auto test strip Ql (U)Ordered By: Jeremy Magallanes on 07-07-2023 Urobilinogen Ql (U) Normal mg/dl Normal [facility] No Panel InformationOrdered By: Jeremy Magallanes on 07-06-2023 Vitamin D 25-Hydroxy 42.3 ng/mL [facility] Comment on above: Vitamin D 25(OH) Sta tus Range Deficiency <20 ng/mL (50nmol/L) Insufficiency 20 - 30 ng/mL (50 - 75 nmol/L) Sufficiency 30 - 100 ng/mL (75 - 250 nmol/L) Toxicity >100 ng/mL (>250 nmol/L) 42.3 ng/mL [facility] Stool gastrointestinal hemog lobin detection by immunologic methodOrdered By: Jeremy Magallanes on 07-06-2023 Lower GI hemoglobin IA Ql (Stl) [facility] Stool gastrointestinal hemog lobin detection by immunologic methodOrdered By: Jeremy Magallanes on 07-05-2023 Lower GI hemoglobin IA Ql (Stl) [facility] Glucose Glucometer (BldC) [M ass/Vol]Ordered By: Woody Brunson on 07-03-2023 Glucose [Mass/Vol] 180 mg/dL 74-106 [facility] Comment on above: MANAGEMENT OF PATIEN T CARE PER NURSING PROTOCOL Absolute lymphocyte countOrd ered By: Woody Brunson on 07-01-2023 Lymphocytes Auto (Unsp spec) [#/Vol] 1.34 10*3/uL 0.83-4.51 [facility] Basophil percentageOrdered B y: Woody Brunson on 07-01-2023 Basophil percentage 129 mg/dL 74-106 [facility] Basophil percentage 7.2 g/dL 6.4-8.2 [facility] Basophil percentage 1.50 mg/dL 0.20-1.00 [facility] Basophil percentage 139 mmol/L 136-145 [facility] Basophil percentage 4.4 mmol/L 3.5-5.1 [facility] Basophil percentage 109 mmol/L 98-107 [facility] Basophils (Bld) [#/Vol] 9.3 10*3/uL 4.4-11.0 [facility] Basophils (Bld) [#/Vol] 7.1 10*3/uL 2.0-7.7 [facility] Basophils/100 WBC (Bld) 0.4 % 0-1 [facility] Basophils/100 WBC (Bld) 76.6 % 47-70 [facility] Basophils/100 WBC (Bld) 0.6 % 0-5 [facility] Bilirubin [Mass/Vol] 1.50 mg/dL 0.20-1.00 [facility] Comment on above: For patients on eltr ombopag therapy, use of Dimension [place] TBIL is not recommended. Chloride [Moles/Vol] 109 mmol/L 98-107 [facility] Eosinophils/100 WBC (Bld) 0.6 % 0-5 [facility] Glucose [Mass/Vol] 129 mg/dL 74-106 [facility] Comment on above: Fasting Glucose resu lt greater than or equal to 126 mg/dL suggests DIABETES MELLITUS per A.D.A. criteria. Neutrophils (Bld) [#/Vol] 7.1 10*3/uL 2.0-7.7 [facility] Neutrophils/100 WBC (Bld) 76.6 % 47-70 [facility] Potassium [Moles/Vol] 4.4 mmol/L 3.5-5.1 [facility] Protein [Mass/Vol] 7.2 g/dL 6.4-8.2 [facility] Sodium [Moles/Vol] 139 mmol/L 136-145 [facility] WBC (Bld) [#/Vol] 9.3 10*3/uL 4.4-11.0 [facility] Blood erythrocytes count (nu mber/volume)Ordered By: Woody Brunson on 07-01-2023 RBC (Bld) [#/Vol] 3.55 10*6/uL 4.6-6.2 [facility] Blood hemoglobin measurement (mass/volume)Ordered By: Woody Brunson on 07-01-2023 Hemoglobin (Bld) [Mass/Vol] 11.4 g/dL 13.0-16.5 [facility] Blood lymphocytes/100 leukoc ytesOrdered By: Woody Brunson on 07-01-2023 Lymphocytes/100 WBC (Bld) 14.4 % 19-41 [facility] Blood monocytes/100 leukocyt esOrdered By: Woody Brunson on 07-01-2023 Monocytes/100 WBC (Bld) 7.7 % 0-10 [facility] Blood platelet mean volumeOr dered By: Woody Brunson on 07-01-2023 Platelet mean volume (Bld) [Entitic vol] 11.0 fL 6.2-12.0 [facility] Determination of erythrocyte mean corpuscular volume (MCV)Ordered By: Woody Brunson on 07-01-2023 MCV (RBC) [Entitic vol] 98.0 fL 80-94 [facility] Hematocrit Auto (Bld) [Volum e fraction]Ordered By: Woody Brunson on 07-01-2023 Hematocrit (Bld) [Volume fraction] 34.8 % 40-54 [facility] Laboratory - Chemistry and C hemistry - challengeOrdered By: Woody Brunson on 07-01-2023 ALP [Catalytic activity/Vol] 134 U/L 45-117 [facility] ALT [Catalytic activity/Vol] 14 U/L 16-61 [facility] CO2 [Moles/Vol] 25.0 mmol/L 21.0-32.0 [facility] Globulin (S) [Mass/Vol] 4.1 g/dL 2.2-4.2 [facility] Urea nitrogen/Creatinine [Mass ratio] 20.8 mg/mg 10-20 [facility] Laboratory - Hematology and Cell countsOrdered By: Woody Brunson on 07-01-2023 Erythrocyte distribution width (RBC) [Entitic vol] 51.6 fL 35.1-43.9 [facility] Erythrocyte distribution width (RBC) [Ratio] 14.3 % 11.6-14.6 [facility] Immature granulocytes/100 WBC (Bld) 0.300 % 0.0-0.9 [facility] Comment on above: IG% - Immature Granu locytes (promyelocytes, myelocytes and metamyelocytes) > 1% indicates that a LEFT SHIFT is Present. MCH (RBC) [Entitic mass] 32.1 pg 27.0-32.0 [facility] Nucleated RBC/100 WBC (Bld) [Ratio] 0 % 0-5 [facility] MCHC Auto (RBC) [Mass/Vol]Or dered By: Woody Brunson on 07-01-2023 MCHC (RBC) [Mass/Vol] 32.8 g/dL 32-36 [facility] No Panel InformationOrdered By: Woody Brunson on 07-01-2023 Estimated Creatinine Clearance Calc 23.37 ml/min [facility] Estimated GFR (MDRD) Amer 39 mL/min >60 [facility] Comment on above: GFR Calc Estimated GFR (MDRD) Non-Af Amer 32 mL/min >60 [facility] Comment on above: Non- GFR Calc 32.1 pg 27.0-32.0 [facility] 14.3 % 11.6-14.6 [facility] 51.6 fl 35.1-43.9 [facility] 0.300 % 0.0-0.9 [facility] 0 % 0-5 [facility] 32 mL/min >60 [facility] 39 mL/min >60 [facility] 23.37 ml/min [facility] 20.8 RATIO 10-20 [facility] 4.1 g/dL 2.2-4.2 [facility] 134 U/L 45-117 [facility] 14 U/L 16-61 [facility] 25.0 mmol/L 21.0-32.0 [facility] Platelets bldOrdered By: Ksenia Brunson on 07-01-2023 Platelets (Bld) [#/Vol] 116 10*3/uL 150-450 [facility] Serum or plasma albumin aubree urement (mass/volume)Ordered By: Woody Brunson on 07-01-2023 Albumin [Mass/Vol] 3.1 g/dL 3.2-5.0 [facility] Serum or plasma albumin/glob ulin mass ratioOrdered By: Woody Brunson on 07-01-2023 Albumin/Globulin [Mass ratio] 0.8 {ratio} 0.9-2.4 [facility] Serum or plasma calcium aubree urement (mass/volume)Ordered By: Woody Brunson on 07-01-2023 Calcium [Mass/Vol] 9.0 mg/dL 8.5-10.1 [facility] Serum or plasma creatinine m easurement (mass/volume)Ordered By: Woody Brunson on 07-01-2023 Creatinine [Mass/Vol] 2.12 mg/dL 0.70-1.30 [facility] Comment on above: The validity of the calculated GFR & GFRAA in patients over 70 years has not been determined. Clinical correlation is essential. Serum or plasma urea nitroge n measurement (mass/volume)Ordered By: Woody Brunson on 07-01-2023 Urea nitrogen [Mass/Vol] 44 mg/dL 7-18 [facility] Thin prep Papanicolaou smear with manual screeningOrdered By: Woody Brunson on 07-01-2023 Thin prep Papanicolaou smear with manual screening 21 U/L 15-37 [facility] Thin prep Papanicolaou smear with manual screening 5 5-15 [facility] Assessment of wrist artery p atency prior to arterial punctureOrdered By: Woody Brunson on 06-30-2023 Arterial patency Wrist artery --pre arterial puncture Positive [facility] Base excessOrdered By: Woody Brunson on 06-30-2023 Base excess Calc (BldV) [Moles/Vol] 0 mmol/L -2-2 [facility] Basophil percentageOrdered B y: Woody Brunson on 06-30-2023 Basophil percentage 24.2 mmol/L 22- [facility] Basophils/100 WBC (Bld) 97 % 95-99 [facility] Ammonia (P) [Moles/Vol] 28.0 umol/L [facility] Basophil percentage 28.0 umol/L [facility] Basophil percentageOrdered B y: Rigoberto Ashley on 06-30-2023 Basophil percentage 75 mg/dL <200 [facility] Basophil percentage 98 mg/dL <199 [facility] Cholesterol [Mass/Vol] 75 mg/dL <200 [facility] Comment on above: <200 mg/dL Desirable 200-240 mg/dL Borderline >240 mg/dL High Risk Triglyceride [Mass/Vol] 98 mg/dL <199 [facility] Comment on above: The drugs N-Acetylcy steine and Metamizole may falsely depress this assay.Serum Triglycerides Reference Interval Normal <150 mg/dL Borderline high 150 - 199 mg/dL High 200 - 499 mg/dL Very High > or = 500 mg/dL CO2 (BldA) [Partial pressure ]Ordered By: Woody Brunson on 06-30-2023 CO2 (Bld) [Partial pressure] 34.5 mm[Hg] 35-45 [facility] No Panel InformationOrdered By: Woody Brunson on 06-30-2023 Blood Gas Liter Flow 5.0 /min [facility] Blood Gas Sample Site R Radial [facility] Blood Gas Specimen Type ART [facility] Blood Gas Total CO2 25 mmol/L [facility] Oxygen Delivery Device Cannula [facility] ART [facility] R Radial [facility] Cannula [facility] 5.0 /min [facility] 25 mmol/L [facility] No Panel InformationOrdered By: Rigoberto Ashley on 06-30-2023 Thyroid Stimulating Hormone (TSH) 5.37 uIU/mL 0.358-3.74 [facility] 5.37 uIU/mL 0.358-3.74 [facility] Oxygen (BldA) [Partial press ure]Ordered By: Woody Brunson on 06-30-2023 Oxygen (Bld) [Partial pressure] 81 mmHG 75-100 [facility] Serum or plasma cholesterol in HDL measurement (mass/volume)Ordered By: Rigoberto Ashley on 06-30-2023 Cholesterol in HDL [Mass/Vol] 30 mg/dL >40 [facility] Comment on above: The drugs N-Acetylcy steine and Metamizole may falsely depress this assay. Reference Range HDL <40 mg/dL Low HDL Cholesterol HDL >or= 60 mg/dL High HDL Cholesterol Serum or plasma cholesterol in VLDL measurement (mass/volume)Ordered By: Rigoberto Ashley on 06-30-2023 Cholesterol in VLDL [Mass/Vol] 20 mg/dL 5-40 [facility] Serum or plasma low density lipoprotein (LDL) cholesterol measurement (mass/volume)Ordered By: Rigoberto Ashley on 06-30-2023 Cholesterol in LDL [Mass/Vol] 25 mg/dL 0-130 [facility] Whole blood hemoglobin A1c/t otal hemoglobin ratio (mass fraction)Ordered By: Rigoberto Ashley on 06-30-2023 HbA1c (Bld) [Mass fraction] 5.6 % 3.8-5.6 [facility] Comment on above: Normal < 5.7 % Predi abetic 5.7 - 6.4 % Diabetic >or= 6.5 % Please note range changes. pH measurementOrdered By: Kyler Brunson on 06-30-2023 pH (Unsp spec) 7.45 [pH] 7.35-7.45 [facility] Absolute lymphocyte countOrd ered By: Angélica Palomo on 06-29-2023 Lymphocytes Auto (Unsp spec) [#/Vol] 2.01 10*3/uL 0.83-4.51 [facility] Basophil percentageOrdered B y: Angélica Palomo on 06-29-2023 Basophil percentage 0 SEEN /hpf 0-5 [facility] Basophils/100 WBC (Bld) 0.6 % 0-1 [facility] Chloride [Moles/Vol] 107 mmol/L 98-107 [facility] Eosinophils/100 WBC (Bld) 1.4 % 0-5 [facility] Glucose [Mass/Vol] 102 mg/dL 74-106 [facility] Comment on above: Fasting Glucose resu lt from 100 to 125 mg/dL suggests IMPAIRED HOMEOSTASIS per A.D.A. criteria. Neutrophils (Bld) [#/Vol] 6.7 10*3/uL 2.0-7.7 [facility] Neutrophils/100 WBC (Bld) 70.0 % 47-70 [facility] Potassium [Moles/Vol] 4.7 mmol/L 3.5-5.1 [facility] Sodium [Moles/Vol] 141 mmol/L 136-145 [facility] WBC (Bld) [#/Vol] 9.5 10*3/uL 4.4-11.0 [facility] Basophil percentageOrdered B y: Rigoberto Dion on 06-29-2023 Basophil percentage 3.9 mg/dL 2.5-4.9 [facility] Bilirubin Test strip Ql (U)O rdered By: Angélica Palomo on 06-29-2023 Bilirubin Ql (U) Negative Negative [facility] Blood erythrocytes count (nu mber/volume)Ordered By: Angélica Palomo on 06-29-2023 RBC (Bld) [#/Vol] 3.69 10*6/uL 4.6-6.2 [facility] Blood hemoglobin measurement (mass/volume)Ordered By: Angélica Palomo on 06-29-2023 Hemoglobin (Bld) [Mass/Vol] 11.6 g/dL 13.0-16.5 [facility] Blood lymphocytes/100 leukoc ytesOrdered By: Angélica Palomo on 06-29-2023 Lymphocytes/100 WBC (Bld) 21.1 % 19-41 [facility] Blood monocytes/100 leukocyt esOrdered By: Angélica Palomo on 06-29-2023 Monocytes/100 WBC (Bld) 6.4 % 0-10 [facility] Blood platelet mean volumeOr dered By: Angélica Palomo on 06-29-2023 Platelet mean volume (Bld) [Entitic vol] 11.3 fL 6.2-12.0 [facility] Determination of erythrocyte mean corpuscular volume (MCV)Ordered By: Angélica Palomo on 06-29-2023 MCV (RBC) [Entitic vol] 99.5 fL 80-94 [facility] HCO3 (BldA) [Moles/Vol]Order ed By: Angélica Palomo on 06-29-2023 HCO3 (Bld) [Moles/Vol] 25 mmol/L 22-26 [facility] Hematocrit Auto (Bld) [Volum e fraction]Ordered By: Angélica Palomo on 06-29-2023 Hematocrit (Bld) [Volume fraction] 36.7 % 40-54 [facility] INR in Blood by Coagulation assayOrdered By: Angélica Palomo on 06-29-2023 INR Coag (Bld) [Relative time] 1.5 {INR} [facility] Ketones Test strip Ql (U)Ord ered By: Angélica Palomo on 06-29-2023 Ketones Ql (U) Negative Negative [facility] Laboratory - Chemistry and C hemistry - challengeOrdered By: Angélica Palomo on 06-29-2023 CO2 [Moles/Vol] 26 mmol/L 23-33 [facility] CO2 [Moles/Vol] 28.0 mmol/L 21.0-32.0 [facility] Urea nitrogen/Creatinine [Mass ratio] 19.0 mg/mg 10-20 [facility] Laboratory - Chemistry and C hemistry - challengeOrdered By: Rigoberto Ashley on 06-29-2023 Magnesium [Mass/Vol] 1.9 mg/dL 1.6-2.6 [facility] Laboratory - CoagulationOrde red By: Angélica Palomo on 06-29-2023 aPTT Coag (Bld) [Time] 40.4 s 24.1-36.2 [facility] PT Coag (PPP) [Time] 18.0 s 11.7-14.9 [facility] Laboratory - Hematology and Cell countsOrdered By: Angélica Palomo on 06-29-2023 Erythrocyte distribution width (RBC) [Entitic vol] 51.5 fL 35.1-43.9 [facility] Erythrocyte distribution width (RBC) [Ratio] 14.2 % 11.6-14.6 [facility] Immature granulocytes/100 WBC (Bld) 0.500 % 0.0-0.9 [facility] Comment on above: IG% - Immature Granu locytes (promyelocytes, myelocytes and metamyelocytes) > 1% indicates that a LEFT SHIFT is Present. MCH (RBC) [Entitic mass] 31.4 pg 27.0-32.0 [facility] Nucleated RBC/100 WBC (Bld) [Ratio] 0 % 0-5 [facility] MCHC Auto (RBC) [Mass/Vol]Or dered By: Angélica Palomo on 06-29-2023 MCHC (RBC) [Mass/Vol] 31.6 g/dL 32-36 [facility] Mucus LM Ql (Urine sed)Order ed By: Angélica Palomo on 06-29-2023 Mucus Ql (Urine sed) 0 SEEN /hpf [facility] Nitrite Test strip Ql (U)Ord ered By: Angélica Palomo on 06-29-2023 Nitrite Ql (U) Negative Negative [facility] No Panel InformationOrdered By: Angélica Palomo on 06-29-2023 Bed Mix Venous Bld PCO2 at Pat Temp 34.8 mmHg 41-51 [facility] Blood Gas Liter Flow 4.0 /min [facility] Blood Gas Specimen Type AYE [facility] Venous Blood Base Excess 1 mmol/L -1.0-3.5 [facility] 34.8 mmHg 41-51 [facility] 1 mmol/L -1.0-3.5 [facility] 93 % 50-70 [facility] 26 mmol/L 23-33 [facility] Estimated Creatinine Clearance Calc 19.98 ml/min [facility] Estimated GFR (MDRD) Amer 32 mL/min >60 [facility] Comment on above: GFR Calc Estimated GFR (MDRD) Non-Af Amer 27 mL/min >60 [facility] Comment on above: Non- GFR Calc Troponin I High Sensitivity 66 pg/mL 3.0-78.0 [facility] Comment on above: Please Note: New Meghana t Units and Gender Specific Reference Ranges. For more information see Policy Stat Procedure [place] High Sensitivity Troponin (TNIH) and attachments. 18.0 SECONDS 11.7-14.9 [facility] 40.4 Seconds 24.1-36.2 [facility] 66 pg/mL 3.0-78.0 [facility] No Panel InformationOrdered By: Rigoberto Ashley on 06-29-2023 1.9 mg/dL 1.6-2.6 [facility] PO2 venousOrdered By: Angélica Palomo on 06-29-2023 Oxygen (BldV) [Partial pressure] 64 mm[Hg] 25-40 [facility] Platelets bldOrdered By: Dee Palomo on 06-29-2023 Platelets (Bld) [#/Vol] 143 10*3/uL 150-450 [facility] Protein Test strip Ql (U)Ord ered By: Angélica Palomo on 06-29-2023 Protein Ql (U) 30 mg/dl Negative [facility] Serum or plasma calcium aubree urement (mass/volume)Ordered By: Angélica Palomo on 06-29-2023 Calcium [Mass/Vol] 9.9 mg/dL 8.5-10.1 [facility] Serum or plasma creatinine m easurement (mass/volume)Ordered By: Angélica Palomo on 06-29-2023 Creatinine [Mass/Vol] 2.48 mg/dL 0.70-1.30 [facility] Comment on above: The validity of the calculated GFR & GFRAA in patients over 70 years has not been determined. Clinical correlation is essential. Serum or plasma urea nitroge n measurement (mass/volume)Ordered By: Angélica Palomo on 06-29-2023 Urea nitrogen [Mass/Vol] 47 mg/dL 7-18 [facility] Squamous epithelial cells de tection in urine sediment by light microscopyOrdered By: Angléica Palomo on 06-29-2023 Epithelial cells.squamous LM Ql (Urine sed) 0 SEEN /hpf 0-5 [facility] Thin prep Papanicolaou smear with manual screeningOrdered By: Angélica Palomo on 06-29-2023 Thin prep Papanicolaou smear with manual screening 6 5-15 [facility] Urine blood detectionOrdered By: Angélica Palomo on 06-29-2023 RBC Ql (U) Negative Negative [facility] RBC Ql (U) 0 SEEN /hpf 0-5 [facility] Urine clarityOrdered By: Dee Palomo on 06-29-2023 Clarity (U) Clear Clear [facility] Urine color determinationOrd ered By: Angélica Palomo on 06-29-2023 Color (U) Yellow Yellow [facility] Urine glucose detectionOrder ed By: Angélica Palomo on 06-29-2023 Glucose Ql (U) Normal mg/dl Normal [facility] Urine leukocyte esterase det ection by dipstickOrdered By: Angélica Palomo on 06-29-2023 Leukocyte esterase Test strip Ql (U) Negative Negative [facility] Urine pHOrdered By: Angélica sher on 06-29-2023 pH (U) 6.0 [pH] 5.0 - 8.0 [facility] Urine sediment bacteria coun t by microscopy (number/high power field)Ordered By: Angélica Palomo on 06-29-2023 Bacteria LM.HPF (Urine sed) [#/Area] 0 /[HPF] None Seen [facility] Urine specific gravity measu rementOrdered By: Angélica Palomo on 06-29-2023 Specific gravity (U) [Rel density] 1.015 1.002-1.030 [facility] Urobilinogen Auto test strip Ql (U)Ordered By: Angélica Palomo on 06-29-2023 Urobilinogen Ql (U) Normal mg/dl Normal [facility] Vital signsOrdered By: Senia Palomo on 06-29-2023 Oxygen saturation in Blood 93 % 50-70 [facility] pH measurementOrdered By: Phoenix Palomo on 06-29-2023 pH (Unsp spec) 7.46 [pH] 7.32-7.42 [facility] Absolute lymphocyte countOrd ered By: Pepe Au on 06-13-2023 Lymphocytes Auto (Unsp spec) [#/Vol] 1.92 10*3/uL 0.83-4.51 [facility] Basophil percentageOrdered B y: Pepe Au on 06-13-2023 Basophil percentage 3.0 mg/dL 2.5-4.9 [facility] Basophil percentage 172 mg/dL 74-106 [facility] Basophil percentage 140 mmol/L 136-145 [facility] Basophil percentage 4.6 mmol/L 3.5-5.1 [facility] Basophil percentage 110 mmol/L 98-107 [facility] Basophils (Bld) [#/Vol] 8.7 10*3/uL 4.4-11.0 [facility] Basophils (Bld) [#/Vol] 6.0 10*3/uL 2.0-7.7 [facility] Basophils/100 WBC (Bld) 0.3 % 0-1 [facility] Basophils/100 WBC (Bld) 68.6 % 47-70 [facility] Basophils/100 WBC (Bld) 1.8 % 0-5 [facility] Chloride [Moles/Vol] 110 mmol/L 98-107 [facility] Eosinophils/100 WBC (Bld) 1.8 % 0-5 [facility] Glucose [Mass/Vol] 172 mg/dL 74-106 [facility] Comment on above: Fasting Glucose resu lt greater than or equal to 126 mg/dL suggests DIABETES MELLITUS per A.D.A. criteria. Neutrophils (Bld) [#/Vol] 6.0 10*3/uL 2.0-7.7 [facility] Neutrophils/100 WBC (Bld) 68.6 % 47-70 [facility] Potassium [Moles/Vol] 4.6 mmol/L 3.5-5.1 [facility] Sodium [Moles/Vol] 140 mmol/L 136-145 [facility] WBC (Bld) [#/Vol] 8.7 10*3/uL 4.4-11.0 [facility] Blood erythrocytes count (nu mber/volume)Ordered By: Pepe Au on 06-13-2023 RBC (Bld) [#/Vol] 3.60 10*6/uL 4.6-6.2 [facility] Blood hemoglobin measurement (mass/volume)Ordered By: Pepe Au on 06-13-2023 Hemoglobin (Bld) [Mass/Vol] 11.4 g/dL 13.0-16.5 [facility] Blood lymphocytes/100 leukoc ytesOrdered By: Pepe Au on 06-13-2023 Lymphocytes/100 WBC (Bld) 22.0 % 19-41 [facility] Blood monocytes/100 leukocyt esOrdered By: Pepe Au on 06-13-2023 Monocytes/100 WBC (Bld) 7.0 % 0-10 [facility] Blood platelet mean volumeOr dered By: Pepe Au on 06-13-2023 Platelet mean volume (Bld) [Entitic vol] 10.8 fL 6.2-12.0 [facility] Determination of erythrocyte mean corpuscular volume (MCV)Ordered By: Pepe Au on 06-13-2023 MCV (RBC) [Entitic vol] 101.4 fL 80-94 [facility] Hematocrit Auto (Bld) [Volum e fraction]Ordered By: Pepe Au on 06-13-2023 Hematocrit (Bld) [Volume fraction] 36.5 % 40-54 [facility] Iron measurement (mass/mass) Ordered By: Pepe Au on 06-13-2023 Iron (Unsp spec) [Mass/Mass] 60 ug/dL 65-175 [facility] Laboratory - Chemistry and C hemistry - challengeOrdered By: Pepe Au on 06-13-2023 CO2 [Moles/Vol] 25.0 mmol/L 21.0-32.0 [facility] Urea nitrogen/Creatinine [Mass ratio] 19.7 mg/mg 10-20 [facility] Laboratory - Hematology and Cell countsOrdered By: Pepe Au on 06-13-2023 Erythrocyte distribution width (RBC) [Entitic vol] 52.5 fL 35.1-43.9 [facility] Erythrocyte distribution width (RBC) [Ratio] 14.1 % 11.6-14.6 [facility] Immature granulocytes/100 WBC (Bld) 0.300 % 0.0-0.9 [facility] Comment on above: IG% - Immature Granu locytes (promyelocytes, myelocytes and metamyelocytes) > 1% indicates that a LEFT SHIFT is Present. MCH (RBC) [Entitic mass] 31.7 pg 27.0-32.0 [facility] Nucleated RBC/100 WBC (Bld) [Ratio] 0 % 0-5 [facility] MCHC Auto (RBC) [Mass/Vol]Or dered By: Pepe Au on 06-13-2023 MCHC (RBC) [Mass/Vol] 31.2 g/dL 32-36 [facility] No Panel InformationOrdered By: Pepe Au on 06-13-2023 Estimated GFR (MDRD) Amer 28 mL/min >60 [facility] Comment on above: GFR Calc Estimated GFR (MDRD) Non-Af Amer 23 mL/min >60 [facility] Comment on above: Non- GFR Calc Total Iron Binding Capacity 258 ug/dL 250-450 [facility] 31.7 pg 27.0-32.0 [facility] 14.1 % 11.6-14.6 [facility] 52.5 fl 35.1-43.9 [facility] 0.300 % 0.0-0.9 [facility] 0 % 0-5 [facility] 23 mL/min >60 [facility] 28 mL/min >60 [facility] 19.7 RATIO 10-20 [facility] 25.0 mmol/L 21.0-32.0 [facility] 258 ug/dL 250-450 [facility] Platelets bldOrdered By: Zandra Au on 06-13-2023 Platelets (Bld) [#/Vol] 120 10*3/uL 150-450 [facility] Serum or plasma albumin aubree urement (mass/volume)Ordered By: Pepe Au on 06-13-2023 Albumin [Mass/Vol] 3.3 g/dL 3.2-5.0 [facility] Serum or plasma calcium aubree urement (mass/volume)Ordered By: Pepe Au on 06-13-2023 Calcium [Mass/Vol] 8.5 mg/dL 8.5-10.1 [facility] Serum or plasma creatinine m easurement (mass/volume)Ordered By: Pepe Au on 06-13-2023 Creatinine [Mass/Vol] 2.84 mg/dL 0.70-1.30 [facility] Comment on above: The validity of the calculated GFR & GFRAA in patients over 70 years has not been determined. Clinical correlation is essential. Serum or plasma ferritin laurie surement (mass/volume)Ordered By: Pepe Au on 06-13-2023 Ferritin [Mass/Vol] 168 ng/mL 26-388 [facility] Serum or plasma iron saturat ion measurement (mass fraction)Ordered By: Pepe Au on 06-13-2023 Iron saturation [Mass fraction] 23.3 % 15.0-55.0 [facility] Serum or plasma urea nitroge n measurement (mass/volume)Ordered By: Pepe Au on 06-13-2023 Urea nitrogen [Mass/Vol] 56 mg/dL 7-18 [facility] Absolute lymphocyte countOrd ered By: Toñito Espino on 05-26-2023 Lymphocytes Auto (Unsp spec) [#/Vol] 1.58 10*3/uL 0.83-4.51 [facility] Basophil percentageOrdered B y: Toñito Espino on 05-26-2023 Basophil percentage 3.7 mg/dL 2.5-4.9 [facility] Basophil percentage 196 mg/dL 74-106 [facility] Basophil percentage 7.8 g/dL 6.4-8.2 [facility] Basophil percentage 0.80 mg/dL 0.20-1.00 [facility] Basophil percentage 140 mmol/L 136-145 [facility] Basophil percentage 4.7 mmol/L 3.5-5.1 [facility] Basophil percentage 107 mmol/L 98-107 [facility] Basophils (Bld) [#/Vol] 8.7 10*3/uL 4.4-11.0 [facility] Basophils (Bld) [#/Vol] 6.5 10*3/uL 2.0-7.7 [facility] Basophils/100 WBC (Bld) 0.5 % 0-1 [facility] Basophils/100 WBC (Bld) 74.3 % 47-70 [facility] Basophils/100 WBC (Bld) 1.3 % 0-5 [facility] Bilirubin [Mass/Vol] 0.80 mg/dL 0.20-1.00 [facility] Comment on above: For patients on eltr ombopag therapy, use of Dimension [place] TBIL is not recommended. Chloride [Moles/Vol] 107 mmol/L 98-107 [facility] Eosinophils/100 WBC (Bld) 1.3 % 0-5 [facility] Glucose [Mass/Vol] 196 mg/dL 74-106 [facility] Comment on above: Fasting Glucose resu lt greater than or equal to 126 mg/dL suggests DIABETES MELLITUS per A.D.A. criteria. Neutrophils (Bld) [#/Vol] 6.5 10*3/uL 2.0-7.7 [facility] Neutrophils/100 WBC (Bld) 74.3 % 47-70 [facility] Potassium [Moles/Vol] 4.7 mmol/L 3.5-5.1 [facility] Protein [Mass/Vol] 7.8 g/dL 6.4-8.2 [facility] Sodium [Moles/Vol] 140 mmol/L 136-145 [facility] WBC (Bld) [#/Vol] 8.7 10*3/uL 4.4-11.0 [facility] Blood erythrocytes count (nu mber/volume)Ordered By: Toñito Espino on 05-26-2023 RBC (Bld) [#/Vol] 3.52 10*6/uL 4.6-6.2 [facility] Blood hemoglobin measurement (mass/volume)Ordered By: Toñito Espino on 05-26-2023 Hemoglobin (Bld) [Mass/Vol] 11.1 g/dL 13.0-16.5 [facility] Blood lymphocytes/100 leukoc ytesOrdered By: Toñito Espino on 05-26-2023 Lymphocytes/100 WBC (Bld) 18.1 % 19-41 [facility] Blood monocytes/100 leukocyt esOrdered By: Toñito Espino on 05-26-2023 Monocytes/100 WBC (Bld) 5.3 % 0-10 [facility] Blood platelet mean volumeOr dered By: Toñito Espino on 05-26-2023 Platelet mean volume (Bld) [Entitic vol] 11.6 fL 6.2-12.0 [facility] Determination of erythrocyte mean corpuscular volume (MCV)Ordered By: Toñito Espino on 05-26-2023 MCV (RBC) [Entitic vol] 101.1 fL 80-94 [facility] Hematocrit Auto (Bld) [Volum e fraction]Ordered By: Toñito Espino on 05-26-2023 Hematocrit (Bld) [Volume fraction] 35.6 % 40-54 [facility] Iron measurement (mass/mass) Ordered By: Toñito Espino on 05-26-2023 Iron (Unsp spec) [Mass/Mass] 75 ug/dL 65-175 [facility] Laboratory - Chemistry and C hemistry - challengeOrdered By: Toñito Espino on 05-26-2023 ALP [Catalytic activity/Vol] 134 U/L 45-117 [facility] ALT [Catalytic activity/Vol] 14 U/L 16-61 [facility] CO2 [Moles/Vol] 27.0 mmol/L 21.0-32.0 [facility] Globulin (S) [Mass/Vol] 4.6 g/dL 2.2-4.2 [facility] Urea nitrogen/Creatinine [Mass ratio] 19.9 mg/mg 10-20 [facility] Laboratory - Hematology and Cell countsOrdered By: Toñito Espino on 05-26-2023 Erythrocyte distribution width (RBC) [Entitic vol] 51.8 fL 35.1-43.9 [facility] Erythrocyte distribution width (RBC) [Ratio] 14.2 % 11.6-14.6 [facility] Immature granulocytes/100 WBC (Bld) 0.500 % 0.0-0.9 [facility] Comment on above: IG% - Immature Granu locytes (promyelocytes, myelocytes and metamyelocytes) > 1% indicates that a LEFT SHIFT is Present. MCH (RBC) [Entitic mass] 31.5 pg 27.0-32.0 [facility] Nucleated RBC/100 WBC (Bld) [Ratio] 0 % 0-5 [facility] MCHC Auto (RBC) [Mass/Vol]Or dered By: Toñito Espino on 05-26-2023 MCHC (RBC) [Mass/Vol] 31.2 g/dL 32-36 [facility] No Panel InformationOrdered By: Toñito Espino on 05-26-2023 Estimated GFR (MDRD) Amer 26 mL/min >60 [facility] Comment on above: GFR Calc Estimated GFR (MDRD) Non-Af Amer 21 mL/min >60 [facility] Comment on above: Non- GFR Calc Parathyroid Hormone (Intact) 20.3 pg/mL 18.4-80.1 [facility] Thyroid Stimulating Hormone (TSH) 4.65 uIU/mL 0.358-3.74 [facility] Total Iron Binding Capacity 278 ug/dL 250-450 [facility] 31.5 pg 27.0-32.0 [facility] 14.2 % 11.6-14.6 [facility] 51.8 fl 35.1-43.9 [facility] 0.500 % 0.0-0.9 [facility] 0 % 0-5 [facility] 21 mL/min >60 [facility] 26 mL/min >60 [facility] 19.9 RATIO 10-20 [facility] 4.6 g/dL 2.2-4.2 [facility] 134 U/L 45-117 [facility] 14 U/L 16-61 [facility] 27.0 mmol/L 21.0-32.0 [facility] 4.65 uIU/mL 0.358-3.74 [facility] 278 ug/dL 250-450 [facility] 20.3 pg/mL 18.4-80.1 [facility] Platelets bldOrdered By: Sujit Espino on 05-26-2023 Platelets (Bld) [#/Vol] 130 10*3/uL 150-450 [facility] Serum or plasma albumin aubree urement (mass/volume)Ordered By: Toñito Espino on 05-26-2023 Albumin [Mass/Vol] 3.2 g/dL 3.2-5.0 [facility] Serum or plasma albumin/glob ulin mass ratioOrdered By: Toñito Espino on 05-26-2023 Albumin/Globulin [Mass ratio] 0.7 {ratio} 0.9-2.4 [facility] Serum or plasma calcium aubree urement (mass/volume)Ordered By: Toñito Espino on 05-26-2023 Calcium [Mass/Vol] 9.3 mg/dL 8.5-10.1 [facility] Serum or plasma creatinine m easurement (mass/volume)Ordered By: Toñito Espino on 05-26-2023 Creatinine [Mass/Vol] 3.02 mg/dL 0.70-1.30 [facility] Comment on above: The validity of the calculated GFR & GFRAA in patients over 70 years has not been determined. Clinical correlation is essential. Serum or plasma ferritin laurie surement (mass/volume)Ordered By: Toñito Espino on 05-26-2023 Ferritin [Mass/Vol] 151 ng/mL 26-388 [facility] Serum or plasma iron saturat ion measurement (mass fraction)Ordered By: Toñito Espino on 05-26-2023 Iron saturation [Mass fraction] 27.0 % 15.0-55.0 [facility] Serum or plasma urea nitroge n measurement (mass/volume)Ordered By: Toñito Espino on 05-26-2023 Urea nitrogen [Mass/Vol] 60 mg/dL 7-18 [facility] Thin prep Papanicolaou smear with manual screeningOrdered By: Toñito Espino on 05-26-2023 Thin prep Papanicolaou smear with manual screening 15 U/L 15-37 [facility] Thin prep Papanicolaou smear with manual screening 6 5-15 [facility] Urine creatinine measurement (mass/volume)Ordered By: Toñito Espino on 05-26-2023 Creatinine (U) [Mass/Vol] 84.50 mg/dL NO RANGE EST. [facility] Urine protein measurement (m ass/volume)Ordered By: Toñito Espino on 05-26-2023 Protein (U) [Mass/Vol] 58.6 mg/dL 0.0-11.8 [facility] Urine protein/creatinine mas s ratioOrdered By: Toñito Espino on 05-26-2023 Protein/Creatinine (U) [Mass ratio] 693 mg/g CRE 0-200 [facility] Whole blood hemoglobin A1c/t otal hemoglobin ratio (mass fraction)Ordered By: Toñito Espino on 05-26-2023 HbA1c (Bld) [Mass fraction] 5.5 % 3.8-5.6 [facility] Comment on above: Normal < 5.7 % Predi abetic 5.7 - 6.4 % Diabetic >or= 6.5 % Please note range changes. Absolute lymphocyte countOrd ered By: Dr. Au on 05-16-2023 Lymphocytes Auto (Unsp spec) [#/Vol] 2.23 10*3/uL 0.83-4.51 [facility] Basophil percentageOrdered B y: Dr. Au on 05-16-2023 Basophil percentage 3.8 mg/dL 2.5-4.9 [facility] Basophils/100 WBC (Bld) 0.5 % 0-1 [facility] Chloride [Moles/Vol] 110 mmol/L 98-107 [facility] Eosinophils/100 WBC (Bld) 2.4 % 0-5 [facility] Glucose [Mass/Vol] 163 mg/dL 74-106 [facility] Comment on above: Fasting Glucose resu lt greater than or equal to 126 mg/dL suggests DIABETES MELLITUS per A.D.A. criteria. Neutrophils (Bld) [#/Vol] 6.0 10*3/uL 2.0-7.7 [facility] Neutrophils/100 WBC (Bld) 66.1 % 47-70 [facility] Potassium [Moles/Vol] 4.6 mmol/L 3.5-5.1 [facility] Sodium [Moles/Vol] 141 mmol/L 136-145 [facility] WBC (Bld) [#/Vol] 9.1 10*3/uL 4.4-11.0 [facility] Basophil percentageOrdered B y: Pepe Au on 05-16-2023 Basophil percentage 163 mg/dL 74-106 [facility] Basophil percentage 141 mmol/L 136-145 [facility] Basophil percentage 4.6 mmol/L 3.5-5.1 [facility] Basophil percentage 110 mmol/L 98-107 [facility] Basophils (Bld) [#/Vol] 9.1 10*3/uL 4.4-11.0 [facility] Basophils (Bld) [#/Vol] 6.0 10*3/uL 2.0-7.7 [facility] Basophils/100 WBC (Bld) 66.1 % 47-70 [facility] Basophils/100 WBC (Bld) 2.4 % 0-5 [facility] Blood erythrocytes count (nu mber/volume)Ordered By: Dr. Au on 05-16-2023 RBC (Bld) [#/Vol] 3.57 10*6/uL 4.6-6.2 [facility] Blood hemoglobin measurement (mass/volume)Ordered By: Dr. Au on 05-16-2023 Hemoglobin (Bld) [Mass/Vol] 11.2 g/dL 13.0-16.5 [facility] Blood lymphocytes/100 leukoc ytesOrdered By: Dr. Au on 05-16-2023 Lymphocytes/100 WBC (Bld) 24.5 % 19-41 [facility] Blood monocytes/100 leukocyt esOrdered By: Dr. Au on 05-16-2023 Monocytes/100 WBC (Bld) 6.1 % 0-10 [facility] Blood platelet mean volumeOr dered By: Dr. Au on 05-16-2023 Platelet mean volume (Bld) [Entitic vol] 10.3 fL 6.2-12.0 [facility] Determination of erythrocyte mean corpuscular volume (MCV)Ordered By: Dr. Au on 05-16-2023 MCV (RBC) [Entitic vol] 100.0 fL 80-94 [facility] Hematocrit Auto (Bld) [Volum e fraction]Ordered By: Dr. Au on 05-16-2023 Hematocrit (Bld) [Volume fraction] 35.7 % 40-54 [facility] Iron measurement (mass/mass) Ordered By: Dr. Au on 05-16-2023 Iron (Unsp spec) [Mass/Mass] 70 ug/dL 65-175 [facility] Laboratory - Chemistry and C hemistry - challengeOrdered By: Dr. Au on 05-16-2023 CO2 [Moles/Vol] 25.0 mmol/L 21.0-32.0 [facility] Urea nitrogen/Creatinine [Mass ratio] 21.5 mg/mg 10-20 [facility] Laboratory - Hematology and Cell countsOrdered By: Dr. Au on 05-16-2023 Erythrocyte distribution width (RBC) [Entitic vol] 52.7 fL 35.1-43.9 [facility] Erythrocyte distribution width (RBC) [Ratio] 14.5 % 11.6-14.6 [facility] Immature granulocytes/100 WBC (Bld) 0.400 % 0.0-0.9 [facility] Comment on above: IG% - Immature Granu locytes (promyelocytes, myelocytes and metamyelocytes) > 1% indicates that a LEFT SHIFT is Present. MCH (RBC) [Entitic mass] 31.4 pg 27.0-32.0 [facility] Nucleated RBC/100 WBC (Bld) [Ratio] 0 % 0-5 [facility] MCHC Auto (RBC) [Mass/Vol]Or dered By: Dr. Au on 05-16-2023 MCHC (RBC) [Mass/Vol] 31.4 g/dL 32-36 [facility] No Panel InformationOrdered By: Dr. Au on 05-16-2023 Estimated GFR (MDRD) Amer 26 mL/min >60 [facility] Comment on above: GFR Calc Estimated GFR (MDRD) Non-Af Amer 22 mL/min >60 [facility] Comment on above: Non- GFR Calc Parathyroid Hormone (Intact) 55.0 pg/mL 18.4-80.1 [facility] Total Iron Binding Capacity 231 ug/dL 250-450 [facility] No Panel InformationOrdered By: Pepe Au on 05-16-2023 31.4 pg 27.0-32.0 [facility] 14.5 % 11.6-14.6 [facility] 52.7 fl 35.1-43.9 [facility] 0.400 % 0.0-0.9 [facility] 0 % 0-5 [facility] 22 mL/min >60 [facility] 26 mL/min >60 [facility] 21.5 RATIO 10-20 [facility] 25.0 mmol/L 21.0-32.0 [facility] 231 ug/dL 250-450 [facility] 55.0 pg/mL 18.4-80.1 [facility] Platelets bldOrdered By: Dr. Au on 05-16-2023 Platelets (Bld) [#/Vol] 132 10*3/uL 150-450 [facility] Serum or plasma albumin aubree urement (mass/volume)Ordered By: Dr. Au on 05-16-2023 Albumin [Mass/Vol] 3.2 g/dL 3.2-5.0 [facility] Serum or plasma calcium aubree urement (mass/volume)Ordered By: Dr. Au on 05-16-2023 Calcium [Mass/Vol] 9.1 mg/dL 8.5-10.1 [facility] Serum or plasma creatinine m easurement (mass/volume)Ordered By: Dr. Au on 05-16-2023 Creatinine [Mass/Vol] 2.97 mg/dL 0.70-1.30 [facility] Comment on above: The validity of the calculated GFR & GFRAA in patients over 70 years has not been determined. Clinical correlation is essential. Serum or plasma ferritin laurie surement (mass/volume)Ordered By: Dr. Au on 05-16-2023 Ferritin [Mass/Vol] 154 ng/mL 26-388 [facility] Serum or plasma iron saturat ion measurement (mass fraction)Ordered By: Dr. Au on 05-16-2023 Iron saturation [Mass fraction] 30.3 % 15.0-55.0 [facility] Serum or plasma urea nitroge n measurement (mass/volume)Ordered By: Dr. Au on 05-16-2023 Urea nitrogen [Mass/Vol] 64 mg/dL 7-18 [facility] No Panel Informationon 05-12 Culture Urine <10,000 cfu/ml. No Significant growth. Sensitivity not indicated. [facility] Work Phone: Absolute lymphocyte countOrd ered By: Dr. Au on 04-18-2023 Lymphocytes Auto (Unsp spec) [#/Vol] 1.93 10*3/uL 0.83-4.51 [facility] Basophil percentageOrdered B y: Dr. Au on 04-18-2023 Basophil percentage 4.0 mg/dL 2.5-4.9 [facility] Basophils/100 WBC (Bld) 0.2 % 0-1 [facility] Chloride [Moles/Vol] 107 mmol/L 98-107 [facility] Eosinophils/100 WBC (Bld) 1.9 % 0-5 [facility] Glucose [Mass/Vol] 144 mg/dL 74-106 [facility] Comment on above: Fasting Glucose resu lt greater than or equal to 126 mg/dL suggests DIABETES MELLITUS per A.D.A. criteria. Neutrophils (Bld) [#/Vol] 5.7 10*3/uL 2.0-7.7 [facility] Neutrophils/100 WBC (Bld) 68.4 % 47-70 [facility] Potassium [Moles/Vol] 4.3 mmol/L 3.5-5.1 [facility] Sodium [Moles/Vol] 141 mmol/L 136-145 [facility] WBC (Bld) [#/Vol] 8.4 10*3/uL 4.4-11.0 [facility] Basophil percentageOrdered B y: Pepe Au on 04-18-2023 Basophil percentage 144 mg/dL 74-106 [facility] Basophil percentage 141 mmol/L 136-145 [facility] Basophil percentage 4.3 mmol/L 3.5-5.1 [facility] Basophil percentage 107 mmol/L 98-107 [facility] Basophils (Bld) [#/Vol] 8.4 10*3/uL 4.4-11.0 [facility] Basophils (Bld) [#/Vol] 5.7 10*3/uL 2.0-7.7 [facility] Basophils/100 WBC (Bld) 68.4 % 47-70 [facility] Basophils/100 WBC (Bld) 1.9 % 0-5 [facility] Blood erythrocytes count (nu mber/volume)Ordered By: Dr. Au on 04-18-2023 RBC (Bld) [#/Vol] 3.61 10*6/uL 4.6-6.2 [facility] Blood hemoglobin measurement (mass/volume)Ordered By: Dr. Au on 04-18-2023 Hemoglobin (Bld) [Mass/Vol] 11.3 g/dL 13.0-16.5 [facility] Blood lymphocytes/100 leukoc ytesOrdered By: Dr. Au on 04-18-2023 Lymphocytes/100 WBC (Bld) 23.0 % 19-41 [facility] Blood monocytes/100 leukocyt esOrdered By: Dr. Au on 04-18-2023 Monocytes/100 WBC (Bld) 6.1 % 0-10 [facility] Blood platelet mean volumeOr dered By: Dr. Au on 04-18-2023 Platelet mean volume (Bld) [Entitic vol] 10.9 fL 6.2-12.0 [facility] Determination of erythrocyte mean corpuscular volume (MCV)Ordered By: Dr. Au on 04-18-2023 MCV (RBC) [Entitic vol] 99.2 fL 80-94 [facility] Hematocrit Auto (Bld) [Volum e fraction]Ordered By: Dr. Au on 04-18-2023 Hematocrit (Bld) [Volume fraction] 35.8 % 40-54 [facility] Iron measurement (mass/mass) Ordered By: Dr. Au on 04-18-2023 Iron (Unsp spec) [Mass/Mass] 59 ug/dL 65-175 [facility] Laboratory - Chemistry and C hemistry - challengeOrdered By: Dr. Au on 04-18-2023 CO2 [Moles/Vol] 27.0 mmol/L 21.0-32.0 [facility] Urea nitrogen/Creatinine [Mass ratio] 23.6 mg/mg 10-20 [facility] Laboratory - Hematology and Cell countsOrdered By: Dr. Au on 04-18-2023 Erythrocyte distribution width (RBC) [Entitic vol] 50.5 fL 35.1-43.9 [facility] Erythrocyte distribution width (RBC) [Ratio] 14.0 % 11.6-14.6 [facility] Immature granulocytes/100 WBC (Bld) 0.400 % 0.0-0.9 [facility] Comment on above: IG% - Immature Granu locytes (promyelocytes, myelocytes and metamyelocytes) > 1% indicates that a LEFT SHIFT is Present. MCH (RBC) [Entitic mass] 31.3 pg 27.0-32.0 [facility] Nucleated RBC/100 WBC (Bld) [Ratio] 0 % 0-5 [facility] MCHC Auto (RBC) [Mass/Vol]Or dered By: Dr. Au on 04-18-2023 MCHC (RBC) [Mass/Vol] 31.6 g/dL 32-36 [facility] No Panel InformationOrdered By: Dr. Au on 04-18-2023 Estimated GFR (MDRD) Amer 25 mL/min >60 [facility] Comment on above: GFR Calc Estimated GFR (MDRD) Non-Af Amer 21 mL/min >60 [facility] Comment on above: Non- GFR Calc Total Iron Binding Capacity 244 ug/dL 250-450 [facility] No Panel InformationOrdered By: Pepe Au on 04-18-2023 31.3 pg 27.0-32.0 [facility] 14.0 % 11.6-14.6 [facility] 50.5 fl 35.1-43.9 [facility] 0.400 % 0.0-0.9 [facility] 0 % 0-5 [facility] 21 mL/min >60 [facility] 25 mL/min >60 [facility] 23.6 RATIO 10-20 [facility] 27.0 mmol/L 21.0-32.0 [facility] 244 ug/dL 250-450 [facility] Platelets bldOrdered By: Dr. Au on 04-18-2023 Platelets (Bld) [#/Vol] 136 10*3/uL 150-450 [facility] Serum or plasma albumin aubree urement (mass/volume)Ordered By: Dr. Au on 04-18-2023 Albumin [Mass/Vol] 3.2 g/dL 3.2-5.0 [facility] Serum or plasma calcium aubree urement (mass/volume)Ordered By: Dr. Au on 04-18-2023 Calcium [Mass/Vol] 8.9 mg/dL 8.5-10.1 [facility] Serum or plasma creatinine m easurement (mass/volume)Ordered By: Dr. Au on 04-18-2023 Creatinine [Mass/Vol] 3.09 mg/dL 0.70-1.30 [facility] Comment on above: The validity of the calculated GFR & GFRAA in patients over 70 years has not been determined. Clinical correlation is essential. Serum or plasma ferritin laurie surement (mass/volume)Ordered By: Dr. Au on 04-18-2023 Ferritin [Mass/Vol] 184 ng/mL 26-388 [facility] Serum or plasma iron saturat ion measurement (mass fraction)Ordered By: Dr. Au on 04-18-2023 Iron saturation [Mass fraction] 24.2 % 15.0-55.0 [facility] Serum or plasma urea nitroge n measurement (mass/volume)Ordered By: Dr. Au on 04-18-2023 Urea nitrogen [Mass/Vol] 73 mg/dL 7-18 [facility] Absolute lymphocyte countOrd ered By: Dr. Au on 03-21-2023 Lymphocytes Auto (Unsp spec) [#/Vol] 2.09 10*3/uL 0.83-4.51 [facility] Basophil percentageOrdered B y: Dr. Au on 03-21-2023 Basophil percentage 3.2 mg/dL 2.5-4.9 [facility] Basophils/100 WBC (Bld) 0.6 % 0-1 [facility] Chloride [Moles/Vol] 107 mmol/L 98-107 [facility] Eosinophils/100 WBC (Bld) 3.1 % 0-5 [facility] Glucose [Mass/Vol] 151 mg/dL 74-106 [facility] Comment on above: Fasting Glucose resu lt greater than or equal to 126 mg/dL suggests DIABETES MELLITUS per A.D.A. criteria. Neutrophils (Bld) [#/Vol] 6.0 10*3/uL 2.0-7.7 [facility] Neutrophils/100 WBC (Bld) 66.3 % 47-70 [facility] Potassium [Moles/Vol] 4.4 mmol/L 3.5-5.1 [facility] Sodium [Moles/Vol] 137 mmol/L 136-145 [facility] WBC (Bld) [#/Vol] 9.1 10*3/uL 4.4-11.0 [facility] Basophil percentageOrdered B y: Pepe Au on 03-21-2023 Basophil percentage 151 mg/dL 74-106 [facility] Basophil percentage 137 mmol/L 136-145 [facility] Basophil percentage 4.4 mmol/L 3.5-5.1 [facility] Basophil percentage 107 mmol/L 98-107 [facility] Basophils (Bld) [#/Vol] 9.1 10*3/uL 4.4-11.0 [facility] Basophils (Bld) [#/Vol] 6.0 10*3/uL 2.0-7.7 [facility] Basophils/100 WBC (Bld) 66.3 % 47-70 [facility] Basophils/100 WBC (Bld) 3.1 % 0-5 [facility] Blood erythrocytes count (nu mber/volume)Ordered By: Dr. Au on 03-21-2023 RBC (Bld) [#/Vol] 3.57 10*6/uL 4.6-6.2 [facility] Blood hemoglobin measurement (mass/volume)Ordered By: Dr. Au on 03-21-2023 Hemoglobin (Bld) [Mass/Vol] 11.3 g/dL 13.0-16.5 [facility] Blood lymphocytes/100 leukoc ytesOrdered By: Dr. Au on 03-21-2023 Lymphocytes/100 WBC (Bld) 23.0 % 19-41 [facility] Blood monocytes/100 leukocyt esOrdered By: Dr. Au on 03-21-2023 Monocytes/100 WBC (Bld) 6.7 % 0-10 [facility] Blood platelet mean volumeOr dered By: Dr. Au on 03-21-2023 Platelet mean volume (Bld) [Entitic vol] 10.1 fL 6.2-12.0 [facility] Determination of erythrocyte mean corpuscular volume (MCV)Ordered By: Dr. Au on 03-21-2023 MCV (RBC) [Entitic vol] 100.0 fL 80-94 [facility] Hematocrit Auto (Bld) [Volum e fraction]Ordered By: Dr. Au on 03-21-2023 Hematocrit (Bld) [Volume fraction] 35.7 % 40-54 [facility] Iron measurement (mass/mass) Ordered By: Dr. Au on 03-21-2023 Iron (Unsp spec) [Mass/Mass] 88 ug/dL 65-175 [facility] Laboratory - Chemistry and C hemistry - challengeOrdered By: Dr. Au on 03-21-2023 CO2 [Moles/Vol] 27.0 mmol/L 21.0-32.0 [facility] Urea nitrogen/Creatinine [Mass ratio] 23.1 mg/mg 10-20 [facility] Laboratory - Hematology and Cell countsOrdered By: Dr. Au on 04-24-2023 Erythrocyte distribution width (RBC) [Entitic vol] 52.0 fL 35.1-43.9 [facility] Erythrocyte distribution width (RBC) [Ratio] 14.2 % 11.6-14.6 [facility] Immature granulocytes/100 WBC (Bld) 0.300 % 0.0-0.9 [facility] Comment on above: IG% - Immature Granu locytes (promyelocytes, myelocytes and metamyelocytes) > 1% indicates that a LEFT SHIFT is Present. MCH (RBC) [Entitic mass] 31.7 pg 27.0-32.0 [facility] Nucleated RBC/100 WBC (Bld) [Ratio] 0 % 0-5 [facility] MCHC Auto (RBC) [Mass/Vol]Or dered By: Dr. Au on 03-21-2023 MCHC (RBC) [Mass/Vol] 31.7 g/dL 32-36 [facility] No Panel InformationOrdered By: Dr. Au on 03-21-2023 Estimated GFR (MDRD) Amer 28 mL/min >60 [facility] Comment on above: GFR Calc Estimated GFR (MDRD) Non-Af Amer 23 mL/min >60 [facility] Comment on above: Non- GFR Calc Parathyroid Hormone (Intact) 35.6 pg/mL 18.4-80.1 [facility] Total Iron Binding Capacity 224 ug/dL 250-450 [facility] No Panel InformationOrdered By: Pepe Au on 03-21-2023 31.7 pg 27.0-32.0 [facility] 14.2 % 11.6-14.6 [facility] 52.0 fl 35.1-43.9 [facility] 0.300 % 0.0-0.9 [facility] 0 % 0-5 [facility] 23 mL/min >60 [facility] 28 mL/min >60 [facility] 23.1 RATIO 10-20 [facility] 27.0 mmol/L 21.0-32.0 [facility] 224 ug/dL 250-450 [facility] 35.6 pg/mL 18.4-80.1 [facility] Platelets bldOrdered By: Dr. Au on 04-24-2023 Platelets (Bld) [#/Vol] 130 10*3/uL 150-450 [facility] Serum or plasma albumin aubree urement (mass/volume)Ordered By: Dr. Au on 03-21-2023 Albumin [Mass/Vol] 3.3 g/dL 3.2-5.0 [facility] Serum or plasma calcium aubree urement (mass/volume)Ordered By: Dr. Au on 03-21-2023 Calcium [Mass/Vol] 9.6 mg/dL 8.5-10.1 [facility] Serum or plasma creatinine m easurement (mass/volume)Ordered By: Dr. Au on 03-21-2023 Creatinine [Mass/Vol] 2.81 mg/dL 0.70-1.30 [facility] Comment on above: The validity of the calculated GFR & GFRAA in patients over 70 years has not been determined. Clinical correlation is essential. Serum or plasma ferritin laurie surement (mass/volume)Ordered By: Dr. Au on 03-21-2023 Ferritin [Mass/Vol] 178 ng/mL 26-388 [facility] Serum or plasma iron saturat ion measurement (mass fraction)Ordered By: Dr. Au on 03-21-2023 Iron saturation [Mass fraction] 39.3 % 15.0-55.0 [facility] Serum or plasma urea nitroge n measurement (mass/volume)Ordered By: Dr. Au on 03-21-2023 Urea nitrogen [Mass/Vol] 65 mg/dL 7-18 [facility] Basophil percentageOrdered B y: Dr. Au on 02-21-2023 Basophil percentage 2.8 mg/dL 2.5-4.9 [facility] Bilirubin [Mass/Vol] 0.70 mg/dL 0.20-1.00 [facility] Comment on above: For patients on eltr ombopag therapy, use of Dimension [place] TBIL is not recommended. Chloride [Moles/Vol] 107 mmol/L 98-107 [facility] Cholesterol [Mass/Vol] 88 mg/dL <200 [facility] Comment on above: <200 mg/dL Desirable 200-240 mg/dL Borderline >240 mg/dL High Risk Glucose [Mass/Vol] 167 mg/dL 74-106 [facility] Comment on above: Fasting Glucose resu lt greater than or equal to 126 mg/dL suggests DIABETES MELLITUS per A.D.A. criteria. Potassium [Moles/Vol] 4.3 mmol/L 3.5-5.1 [facility] Protein [Mass/Vol] 7.6 g/dL 6.4-8.2 [facility] Sodium [Moles/Vol] 137 mmol/L 136-145 [facility] [facility] Trig[facility] [Mass/Vol] 93 mg/dL <199 [facility] Comment on above: The drugs N-Acetylcy steine and Metamizole may falsely depress this assay.Serum Triglycerides Reference Interval Normal <150 mg/dL Borderline high 150 - 199 mg/dL High 200 - 499 mg/dL Very High > or = 500 mg/dL WBC (Bld) [#/Vol] 8.7 10*3/uL 4.4-11.0 [facility] Blood erythrocytes count (nu mber/volume)Ordered By: Dr. Au on 02-21-2023 RBC (Bld) [#/Vol] 3.38 10*6/uL 4.6-6.2 [facility] Blood hemoglobin measurement (mass/volume)Ordered By: Dr. Au on 02-21-2023 Hemoglobin (Bld) [Mass/Vol] 10.7 g/dL 13.0-16.5 [facility] Blood platelet mean volumeOr dered By: Dr. Au on 02-21-2023 Platelet mean volume (Bld) [Entitic vol] 10.6 fL 6.2-12.0 [facility] Determination of erythrocyte mean corpuscular volume (MCV)Ordered By: Dr. Au on 02-21-2023 MCV (RBC) [Entitic vol] 98.2 fL 80-94 [facility] Hematocrit Auto (Bld) [Volum e fraction]Ordered By: Dr. Au on 02-21-2023 Hematocrit (Bld) [Volume fraction] 33.2 % 40-54 [facility] Iron measurement (mass/mass) Ordered By: Dr. Au on 02-21-2023 Iron (Unsp spec) [Mass/Mass] 49 ug/dL 65-175 [facility] Laboratory - Chemistry and C hemistry - challengeOrdered By: Dr. Au on 02-21-2023 ALP [Catalytic activity/Vol] 137 U/L 45-117 [facility] ALT [Catalytic activity/Vol] 14 U/L 16-61 [facility] CO2 [Moles/Vol] 24.0 mmol/L 21.0-32.0 [facility] Globulin (S) [Mass/Vol] 4.5 g/dL 2.2-4.2 [facility] Urea nitrogen/Creatinine [Mass ratio] 17.2 mg/mg 10-20 [facility] Laboratory - Hematology and Cell countsOrdered By: Dr. Au on 02-21-2023 Erythrocyte distribution width (RBC) [Entitic vol] 52.2 fL 35.1-43.9 [facility] Erythrocyte distribution width (RBC) [Ratio] 14.5 % 11.6-14.6 [facility] MCH (RBC) [Entitic mass] 31.7 pg 27.0-32.0 [facility] MCHC Auto (RBC) [Mass/Vol]Or dered By: Dr. Au on 02-21-2023 MCHC (RBC) [Mass/Vol] 32.2 g/dL 32-36 [facility] No Panel InformationOrdered By: Dr. Au on 02-21-2023 Estimated GFR (MDRD) Amer 23 mL/min >60 [facility] Comment on above: GFR Calc Estimated GFR (MDRD) Non-Af Amer 19 mL/min >60 [facility] Comment on above: Non- GFR Calc Thyroid Stimulating Hormone (TSH) 4.77 uIU/mL 0.358-3.74 [facility] Total Iron Binding Capacity 201 ug/dL 250-450 [facility] Platelets bldOrdered By: Dr. Au on 02-21-2023 Platelets (Bld) [#/Vol] 147 10*3/uL 150-450 [facility] Serum or plasma albumin aubree urement (mass/volume)Ordered By: Dr. Au on 02-21-2023 Albumin [Mass/Vol] 3.1 g/dL 3.2-5.0 [facility] Serum or plasma albumin/glob ulin mass ratioOrdered By: Dr. Au on 03-27-2023 Albumin/Globulin [Mass ratio] 0.7 {ratio} 0.9-2.4 [facility] Serum or plasma calcium aubree urement (mass/volume)Ordered By: Dr. Au on 02-21-2023 Calcium [Mass/Vol] 8.5 mg/dL 8.5-10.1 [facility] Serum or plasma cholesterol in HDL measurement (mass/volume)Ordered By: Dr. Au on 02-21-2023 Cholesterol in HDL [Mass/Vol] 30 mg/dL >40 [facility] Comment on above: The drugs N-Acetylcy steine and Metamizole may falsely depress this assay. Reference Range HDL <40 mg/dL Low HDL Cholesterol HDL >or= 60 mg/dL High HDL Cholesterol Serum or plasma cholesterol in VLDL measurement (mass/volume)Ordered By: Dr. Au on 02-21-2023 Cholesterol in VLDL [Mass/Vol] 19 mg/dL 5-40 [facility] Serum or plasma creatinine m easurement (mass/volume)Ordered By: Dr. Au on 02-21-2023 Creatinine [Mass/Vol] 3.37 mg/dL 0.70-1.30 [facility] Comment on above: The validity of the calculated GFR & GFRAA in patients over 70 years has not been determined. Clinical correlation is essential. Serum or plasma ferritin laurie surement (mass/volume)Ordered By: Dr. Au on 02-21-2023 Ferritin [Mass/Vol] 167 ng/mL 26-388 [facility] Serum or plasma iron saturat ion measurement (mass fraction)Ordered By: Dr. Au on 02-21-2023 Iron saturation [Mass fraction] 24.4 % 15.0-55.0 [facility] Serum or plasma low density lipoprotein (LDL) cholesterol measurement (mass/volume)Ordered By: Dr. Au on 02-21-2023 Cholesterol in LDL [Mass/Vol] 39 mg/dL 0-130 [facility] Serum or plasma urea nitroge n measurement (mass/volume)Ordered By: Dr. Au on 02-21-2023 Urea nitrogen [Mass/Vol] 58 mg/dL 7-18 [facility] Thin prep Papanicolaou smear with manual screeningOrdered By: Dr. Au on 02-21-2023 Thin prep Papanicolaou smear with manual screening 14 U/L 15-37 [facility] Thin prep Papanicolaou smear with manual screening 6 5-15 [facility] Whole blood hemoglobin A1c/t otal hemoglobin ratio (mass fraction)Ordered By: Dr. Au on 02-21-2023 HbA1c (Bld) [Mass fraction] 5.6 % 3.8-5.6 [facility] Comment on above: Normal < 5.7 % Predi abetic 5.7 - 6.4 % Diabetic >or= 6.5 % Please note range changes. Absolute lymphocyte countOrd ered By: Dr. Au on 01-31-2023 Lymphocytes Auto (Unsp spec) [#/Vol] 1.94 10*3/uL 0.83-4.51 [facility] Basophil percentageOrdered B y: Dr. Au on 01-31-2023 Basophil percentage 4.1 mg/dL 2.5-4.9 [facility] Basophils/100 WBC (Bld) 0.5 % 0-1 [facility] Chloride [Moles/Vol] 103 mmol/L 98-107 [facility] Eosinophils/100 WBC (Bld) 3.3 % 0-5 [facility] Glucose [Mass/Vol] 145 mg/dL 74-106 [facility] Comment on above: Fasting Glucose resu lt greater than or equal to 126 mg/dL suggests DIABETES MELLITUS per A.D.A. criteria. Neutrophils (Bld) [#/Vol] 6.1 10*3/uL 2.0-7.7 [facility] Neutrophils/100 WBC (Bld) 67.5 % 47-70 [facility] Potassium [Moles/Vol] 4.6 mmol/L 3.5-5.1 [facility] Sodium [Moles/Vol] 139 mmol/L 136-145 [facility] WBC (Bld) [#/Vol] 9.1 10*3/uL 4.4-11.0 [facility] Blood erythrocytes count (nu mber/volume)Ordered By: Dr. Au on 01-31-2023 RBC (Bld) [#/Vol] 3.74 10*6/uL 4.6-6.2 [facility] Blood hemoglobin measurement (mass/volume)Ordered By: Dr. Au on 01-31-2023 Hemoglobin (Bld) [Mass/Vol] 11.7 g/dL 13.0-16.5 [facility] Blood lymphocytes/100 leukoc ytesOrdered By: Dr. Au on 01-31-2023 Lymphocytes/100 WBC (Bld) 21.3 % 19-41 [facility] Blood monocytes/100 leukocyt esOrdered By: Dr. Au on 01-31-2023 Monocytes/100 WBC (Bld) 6.9 % 0-10 [facility] Blood platelet mean volumeOr dered By: Dr. Au on 01-31-2023 Platelet mean volume (Bld) [Entitic vol] 10.4 fL 6.2-12.0 [facility] Determination of erythrocyte mean corpuscular volume (MCV)Ordered By: Dr. Au on 01-31-2023 MCV (RBC) [Entitic vol] 100.0 fL 80-94 [facility] Hematocrit Auto (Bld) [Volum e fraction]Ordered By: Dr. Au on 01-31-2023 Hematocrit (Bld) [Volume fraction] 37.4 % 40-54 [facility] Iron measurement (mass/mass) Ordered By: Dr. Au on 01-31-2023 Iron (Unsp spec) [Mass/Mass] 65 ug/dL 65-175 [facility] Laboratory - Chemistry and C hemistry - challengeOrdered By: Dr. Au on 01-31-2023 CO2 [Moles/Vol] 29.0 mmol/L 21.0-32.0 [facility] Urea nitrogen/Creatinine [Mass ratio] 22.1 mg/mg 10-20 [facility] Laboratory - Hematology and Cell countsOrdered By: Dr. Au on 01-31-2023 Erythrocyte distribution width (RBC) [Entitic vol] 51.0 fL 35.1-43.9 [facility] Erythrocyte distribution width (RBC) [Ratio] 14.3 % 11.6-14.6 [facility] Immature granulocytes/100 WBC (Bld) 0.500 % 0.0-0.9 [facility] Comment on above: IG% - Immature Granu locytes (promyelocytes, myelocytes and metamyelocytes) > 1% indicates that a LEFT SHIFT is Present. MCH (RBC) [Entitic mass] 31.3 pg 27.0-32.0 [facility] Nucleated RBC/100 WBC (Bld) [Ratio] 0 % 0-5 [facility] MCHC Auto (RBC) [Mass/Vol]Or dered By: Dr. Au on 01-31-2023 MCHC (RBC) [Mass/Vol] 31.3 g/dL 32-36 [facility] No Panel InformationOrdered By: Dr. Au on 01-31-2023 Estimated GFR (MDRD) Amer 29 mL/min >60 [facility] Comment on above: GFR Calc Estimated GFR (MDRD) Non-Af Amer 24 mL/min >60 [facility] Comment on above: Non- GFR Calc Parathyroid Hormone (Intact) 32.8 pg/mL 18.4-80.1 [facility] Total Iron Binding Capacity 265 ug/dL 250-450 [facility] Platelets bldOrdered By: Dr. Au on 01-31-2023 Platelets (Bld) [#/Vol] 167 10*3/uL 150-450 [facility] Serum or plasma albumin aubree urement (mass/volume)Ordered By: Dr. Au on 01-31-2023 Albumin [Mass/Vol] 3.1 g/dL 3.2-5.0 [facility] Serum or plasma calcium aubree urement (mass/volume)Ordered By: Dr. Au on 01-31-2023 Calcium [Mass/Vol] 9.6 mg/dL 8.5-10.1 [facility] Serum or plasma creatinine m easurement (mass/volume)Ordered By: Dr. Au on 01-31-2023 Creatinine [Mass/Vol] 2.76 mg/dL 0.70-1.30 [facility] Comment on above: The validity of the calculated GFR & GFRAA in patients over 70 years has not been determined. Clinical correlation is essential. Serum or plasma ferritin laurie surement (mass/volume)Ordered By: Dr. Au on 01-31-2023 Ferritin [Mass/Vol] 191 ng/mL 26-388 [facility] Serum or plasma iron saturat ion measurement (mass fraction)Ordered By: Dr. Au on 01-31-2023 Iron saturation [Mass fraction] 24.5 % 15.0-55.0 [facility] Serum or plasma urea nitroge n measurement (mass/volume)Ordered By: Dr. Au on 01-31-2023 Urea nitrogen [Mass/Vol] 61 mg/dL 7-18 [facility] Serum or plasma uric acid me asurement (mass/volume)Ordered By: Dr. Au on 01-31-2023 Urate [Mass/Vol] 6.2 mg/dL 3.5-7.2 [facility] Comment on above: The drugs N-Acetylcy steine and Metamizole may falsely depress this assay. Urine creatinine measurement (mass/volume)Ordered By: Dr. Au on 01-31-2023 Creatinine (U) [Mass/Vol] 119.00 mg/dL NO RANGE EST. [facility] Urine protein measurement (m ass/volume)Ordered By: Dr. Au on 01-31-2023 Protein (U) [Mass/Vol] 64.8 mg/dL 0.0-11.8 [facility] Urine protein/creatinine mas s ratioOrdered By: Dr. Au on 01-31-2023 Protein/Creatinine (U) [Mass ratio] 545 mg/g CRE 0-200 [facility] Absolute lymphocyte countOrd ered By: Dr. Au on 01-24-2023 Lymphocytes Auto (Unsp spec) [#/Vol] 1.96 10*3/uL 0.83-4.51 [facility] Basophil percentageOrdered B y: Dr. Au on 01-24-2023 Basophil percentage 3.7 mg/dL 2.5-4.9 [facility] Basophils/100 WBC (Bld) 0.4 % 0-1 [facility] Chloride [Moles/Vol] 105 mmol/L 98-107 [facility] Eosinophils/100 WBC (Bld) 2.6 % 0-5 [facility] Glucose [Mass/Vol] 182 mg/dL 74-106 [facility] Comment on above: Fasting Glucose resu lt greater than or equal to 126 mg/dL suggests DIABETES MELLITUS per A.D.A. criteria. Neutrophils (Bld) [#/Vol] 6.3 10*3/uL 2.0-7.7 [facility] Neutrophils/100 WBC (Bld) 69.4 % 47-70 [facility] Potassium [Moles/Vol] 4.7 mmol/L 3.5-5.1 [facility] Sodium [Moles/Vol] 141 mmol/L 136-145 [facility] WBC (Bld) [#/Vol] 9.1 10*3/uL 4.4-11.0 [facility] Blood erythrocytes count (nu mber/volume)Ordered By: Dr. Au on 01-24-2023 RBC (Bld) [#/Vol] 3.46 10*6/uL 4.6-6.2 [facility] Blood hemoglobin measurement (mass/volume)Ordered By: Dr. Au on 01-24-2023 Hemoglobin (Bld) [Mass/Vol] 10.9 g/dL 13.0-16.5 [facility] Blood lymphocytes/100 leukoc ytesOrdered By: Dr. Au on 01-24-2023 Lymphocytes/100 WBC (Bld) 21.4 % 19-41 [facility] Blood monocytes/100 leukocyt esOrdered By: Dr. Au on 01-24-2023 Monocytes/100 WBC (Bld) 5.8 % 0-10 [facility] Blood platelet mean volumeOr dered By: Dr. Au on 01-24-2023 Platelet mean volume (Bld) [Entitic vol] 10.3 fL 6.2-12.0 [facility] Determination of erythrocyte mean corpuscular volume (MCV)Ordered By: Dr. Au on 01-24-2023 MCV (RBC) [Entitic vol] 98.8 fL 80-94 [facility] Hematocrit Auto (Bld) [Volum e fraction]Ordered By: Dr. Au on 01-24-2023 Hematocrit (Bld) [Volume fraction] 34.2 % 40-54 [facility] Iron measurement (mass/mass) Ordered By: Dr. Au on 01-24-2023 Iron (Unsp spec) [Mass/Mass] 68 ug/dL 65-175 [facility] Laboratory - Chemistry and C hemistry - challengeOrdered By: Dr. Au on 01-24-2023 CO2 [Moles/Vol] 28.0 mmol/L 21.0-32.0 [facility] Urea nitrogen/Creatinine [Mass ratio] 22.6 mg/mg 10-20 [facility] Laboratory - Hematology and Cell countsOrdered By: Dr. Au on 01-24-2023 Erythrocyte distribution width (RBC) [Entitic vol] 50.6 fL 35.1-43.9 [facility] Erythrocyte distribution width (RBC) [Ratio] 14.2 % 11.6-14.6 [facility] Immature granulocytes/100 WBC (Bld) 0.400 % 0.0-0.9 [facility] Comment on above: IG% - Immature Granu locytes (promyelocytes, myelocytes and metamyelocytes) > 1% indicates that a LEFT SHIFT is Present. MCH (RBC) [Entitic mass] 31.5 pg 27.0-32.0 [facility] Nucleated RBC/100 WBC (Bld) [Ratio] 0 % 0-5 [facility] MCHC Auto (RBC) [Mass/Vol]Or dered By: Dr. Au on 01-24-2023 MCHC (RBC) [Mass/Vol] 31.9 g/dL 32-36 [facility] No Panel InformationOrdered By: Dr. Au on 01-24-2023 Estimated GFR (MDRD) Amer 30 mL/min >60 [facility] Comment on above: GFR Calc Estimated GFR (MDRD) Non-Af Amer 25 mL/min >60 [facility] Comment on above: Non- GFR Calc Total Iron Binding Capacity 202 ug/dL 250-450 [facility] Platelets bldOrdered By: Dr. Au on 01-24-2023 Platelets (Bld) [#/Vol] 149 10*3/uL 150-450 [facility] Serum or plasma albumin aubree urement (mass/volume)Ordered By: Dr. Au on 01-24-2023 Albumin [Mass/Vol] 3.0 g/dL 3.2-5.0 [facility] Serum or plasma calcium aubree urement (mass/volume)Ordered By: Dr. Au on 01-24-2023 Calcium [Mass/Vol] 9.5 mg/dL 8.5-10.1 [facility] Serum or plasma creatinine m easurement (mass/volume)Ordered By: Dr. Au on 01-24-2023 Creatinine [Mass/Vol] 2.65 mg/dL 0.70-1.30 [facility] Comment on above: The validity of the calculated GFR & GFRAA in patients over 70 years has not been determined. Clinical correlation is essential. Serum or plasma ferritin laurie surement (mass/volume)Ordered By: Dr. Au on 01-24-2023 Ferritin [Mass/Vol] 191 ng/mL 26-388 [facility] Serum or plasma iron saturat ion measurement (mass fraction)Ordered By: Dr. Au on 01-24-2023 Iron saturation [Mass fraction] 33.7 % 15.0-55.0 [facility] Serum or plasma urea nitroge n measurement (mass/volume)Ordered By: Dr. Au on 01-24-2023 Urea nitrogen [Mass/Vol] 60 mg/dL 7-18 [facility] Absolute lymphocyte countOrd ered By: Dr. Au on 12-28-2022 Lymphocytes Auto (Unsp spec) [#/Vol] 1.99 10*3/uL 0.83-4.51 [facility] Basophil percentageOrdered B y: Dr. Au on 12-28-2022 Basophil percentage 3.9 mg/dL 2.5-4.9 [facility] Basophils/100 WBC (Bld) 0.2 % 0-1 [facility] Chloride [Moles/Vol] 107 mmol/L 98-107 [facility] Eosinophils/100 WBC (Bld) 3.0 % 0-5 [facility] Glucose [Mass/Vol] 214 mg/dL 74-106 [facility] Comment on above: Glucose result great er than or equal to 200 mg/dLsuggests DIABETES MELLITUS per A.D.A. criteria. Neutrophils (Bld) [#/Vol] 6.4 10*3/uL 2.0-7.7 [facility] Neutrophils/100 WBC (Bld) 68.1 % 47-70 [facility] Potassium [Moles/Vol] 4.3 mmol/L 3.5-5.1 [facility] Sodium [Moles/Vol] 141 mmol/L 136-145 [facility] WBC (Bld) [#/Vol] 9.4 10*3/uL 4.4-11.0 [facility] Blood erythrocytes count (nu mber/volume)Ordered By: Dr. Au on 12-28-2022 RBC (Bld) [#/Vol] 3.66 10*6/uL 4.6-6.2 [facility] Blood hemoglobin measurement (mass/volume)Ordered By: Dr. Au on 12-28-2022 Hemoglobin (Bld) [Mass/Vol] 11.5 g/dL 13.0-16.5 [facility] Blood lymphocytes/100 leukoc ytesOrdered By: Dr. Au on 12-28-2022 Lymphocytes/100 WBC (Bld) 21.3 % 19-41 [facility] Blood monocytes/100 leukocyt esOrdered By: Dr. Au on 12-28-2022 Monocytes/100 WBC (Bld) 7.1 % 0-10 [facility] Blood platelet mean volumeOr dered By: Dr. Au on 12-28-2022 Platelet mean volume (Bld) [Entitic vol] 10.4 fL 6.2-12.0 [facility] Determination of erythrocyte mean corpuscular volume (MCV)Ordered By: Dr. Au on 12-28-2022 MCV (RBC) [Entitic vol] 97.0 fL 80-94 [facility] Hematocrit Auto (Bld) [Volum e fraction]Ordered By: Dr. Au on 12-28-2022 Hematocrit (Bld) [Volume fraction] 35.5 % 40-54 [facility] Iron measurement (mass/mass) Ordered By: Dr. Au on 12-28-2022 Iron (Unsp spec) [Mass/Mass] 54 ug/dL 65-175 [facility] Laboratory - Chemistry and C hemistry - challengeOrdered By: Dr. Au on 12-28-2022 CO2 [Moles/Vol] 28.0 mmol/L 21.0-32.0 [facility] Urea nitrogen/Creatinine [Mass ratio] 23.6 mg/mg 10-20 [facility] Laboratory - Hematology and Cell countsOrdered By: Dr. Au on 12-28-2022 Erythrocyte distribution width (RBC) [Entitic vol] 50.2 fL 35.1-43.9 [facility] Erythrocyte distribution width (RBC) [Ratio] 14.3 % 11.6-14.6 [facility] Immature granulocytes/100 WBC (Bld) 0.300 % 0.0-0.9 [facility] Comment on above: IG% - Immature Granu locytes (promyelocytes, myelocytes and metamyelocytes) > 1% indicates that a LEFT SHIFT is Present. MCH (RBC) [Entitic mass] 31.4 pg 27.0-32.0 [facility] Nucleated RBC/100 WBC (Bld) [Ratio] 0 % 0-5 [facility] MCHC Auto (RBC) [Mass/Vol]Or dered By: Dr. Au on 12-28-2022 MCHC (RBC) [Mass/Vol] 32.4 g/dL 32-36 [facility] No Panel InformationOrdered By: Dr. Au on 12-28-2022 Estimated GFR (MDRD) Amer 30 mL/min >60 [facility] Comment on above: GFR Calc Estimated GFR (MDRD) Non-Af Amer 25 mL/min >60 [facility] Comment on above: Non- GFR Calc Total Iron Binding Capacity 244 ug/dL 250-450 [facility] Platelets bldOrdered By: Dr. Au on 12-28-2022 Platelets (Bld) [#/Vol] 148 10*3/uL 150-450 [facility] Serum or plasma albumin aubree urement (mass/volume)Ordered By: Dr. Au on 12-28-2022 Albumin [Mass/Vol] 3.1 g/dL 3.2-5.0 [facility] Serum or plasma calcium aubree urement (mass/volume)Ordered By: Dr. Au on 12-28-2022 Calcium [Mass/Vol] 9.7 mg/dL 8.5-10.1 [facility] Serum or plasma creatinine m easurement (mass/volume)Ordered By: Dr. Au on 12-28-2022 Creatinine [Mass/Vol] 2.63 mg/dL 0.70-1.30 [facility] Comment on above: The validity of the calculated GFR & GFRAA in patients over 70 years has not been determined. Clinical correlation is essential. Serum or plasma ferritin laurie surement (mass/volume)Ordered By: Dr. Au on 12-28-2022 Ferritin [Mass/Vol] 193 ng/mL 26-388 [facility] Serum or plasma iron saturat ion measurement (mass fraction)Ordered By: Dr. Au on 12-28-2022 Iron saturation [Mass fraction] 22.1 % 15.0-55.0 [facility] Serum or plasma urea nitroge n measurement (mass/volume)Ordered By: Dr. Au on 12-28-2022 Urea nitrogen [Mass/Vol] 62 mg/dL 7-18 [facility] Absolute lymphocyte countOrd ered By: Dr. Au on 12-02-2022 Lymphocytes Auto (Unsp spec) [#/Vol] 1.85 10*3/uL 0.83-4.51 [facility] Basophil percentageOrdered B y: Dr. Au on 12-02-2022 Basophil percentage 3.8 mg/dL 2.5-4.9 [facility] Basophils/100 WBC (Bld) 0.4 % 0-1 [facility] Chloride [Moles/Vol] 108 mmol/L 98-107 [facility] Eosinophils/100 WBC (Bld) 2.8 % 0-5 [facility] Glucose [Mass/Vol] 180 mg/dL 74-106 [facility] Comment on above: Fasting Glucose resu lt greater than or equal to 126 mg/dL suggests DIABETES MELLITUS per A.D.A. criteria. Neutrophils (Bld) [#/Vol] 5.7 10*3/uL 2.0-7.7 [facility] Neutrophils/100 WBC (Bld) 67.2 % 47-70 [facility] Potassium [Moles/Vol] 4.3 mmol/L 3.5-5.1 [facility] Sodium [Moles/Vol] 142 mmol/L 136-145 [facility] WBC (Bld) [#/Vol] 8.5 10*3/uL 4.4-11.0 [facility] Blood erythrocytes count (nu mber/volume)Ordered By: Dr. Au on 12-02-2022 RBC (Bld) [#/Vol] 3.44 10*6/uL 4.6-6.2 [facility] Blood hemoglobin measurement (mass/volume)Ordered By: Dr. Au on 12-02-2022 Hemoglobin (Bld) [Mass/Vol] 11.0 g/dL 13.0-16.5 [facility] Blood lymphocytes/100 leukoc ytesOrdered By: Dr. Au on 12-02-2022 Lymphocytes/100 WBC (Bld) 21.8 % 19-41 [facility] Blood monocytes/100 leukocyt esOrdered By: Dr. Au on 12-02-2022 Monocytes/100 WBC (Bld) 7.4 % 0-10 [facility] Blood platelet mean volumeOr dered By: Dr. Au on 12-02-2022 Platelet mean volume (Bld) [Entitic vol] 10.4 fL 6.2-12.0 [facility] Determination of erythrocyte mean corpuscular volume (MCV)Ordered By: Dr. Au on 12-02-2022 MCV (RBC) [Entitic vol] 98.3 fL 80-94 [facility] Hematocrit Auto (Bld) [Volum e fraction]Ordered By: Dr. Au on 12-02-2022 Hematocrit (Bld) [Volume fraction] 33.8 % 40-54 [facility] Iron measurement (mass/mass) Ordered By: Dr. Au on 12-02-2022 Iron (Unsp spec) [Mass/Mass] 64 ug/dL 65-175 [facility] Laboratory - Chemistry and C hemistry - challengeOrdered By: Dr. Au on 12-02-2022 CO2 [Moles/Vol] 31.0 mmol/L 21.0-32.0 [facility] Urea nitrogen/Creatinine [Mass ratio] 23.0 mg/mg 10-20 [facility] Laboratory - Hematology and Cell countsOrdered By: Dr. Au on 12-02-2022 Erythrocyte distribution width (RBC) [Entitic vol] 51.8 fL 35.1-43.9 [facility] Erythrocyte distribution width (RBC) [Ratio] 14.4 % 11.6-14.6 [facility] Immature granulocytes/100 WBC (Bld) 0.400 % 0.0-0.9 [facility] Comment on above: IG% - Immature Granu locytes (promyelocytes, myelocytes and metamyelocytes) > 1% indicates that a LEFT SHIFT is Present. MCH (RBC) [Entitic mass] 32.0 pg 27.0-32.0 [facility] Nucleated RBC/100 WBC (Bld) [Ratio] 0 % 0-5 [facility] MCHC Auto (RBC) [Mass/Vol]Or dered By: Dr. Au on 12-02-2022 MCHC (RBC) [Mass/Vol] 32.5 g/dL 32-36 [facility] No Panel InformationOrdered By: Dr. Au on 12-02-2022 Estimated GFR (MDRD) Amer 29 mL/min >60 [facility] Comment on above: GFR Calc Estimated GFR (MDRD) Non-Af Amer 24 mL/min >60 [facility] Comment on above: Non- GFR Calc Parathyroid Hormone (Intact) 16.7 pg/mL 18.4-80.1 [facility] Total Iron Binding Capacity 230 ug/dL 250-450 [facility] Platelets bldOrdered By: Dr. Au on 12-02-2022 Platelets (Bld) [#/Vol] 158 10*3/uL 150-450 [facility] Serum or plasma albumin aubree urement (mass/volume)Ordered By: Dr. Au on 12-02-2022 Albumin [Mass/Vol] 3.4 g/dL 3.2-5.0 [facility] Serum or plasma calcium aubree urement (mass/volume)Ordered By: Dr. Au on 12-02-2022 Calcium [Mass/Vol] 10.0 mg/dL 8.5-10.1 [facility] Serum or plasma creatinine m easurement (mass/volume)Ordered By: Dr. Au on 12-02-2022 Creatinine [Mass/Vol] 2.74 mg/dL 0.70-1.30 [facility] Comment on above: The validity of the calculated GFR & GFRAA in patients over 70 years has not been determined. Clinical correlation is essential. Serum or plasma ferritin laurie surement (mass/volume)Ordered By: Dr. Au on 12-02-2022 Ferritin [Mass/Vol] 185 ng/mL 26-388 [facility] Serum or plasma iron saturat ion measurement (mass fraction)Ordered By: Dr. Au on 12-02-2022 Iron saturation [Mass fraction] 27.8 % 15.0-55.0 [facility] Serum or plasma urea nitroge n measurement (mass/volume)Ordered By: Dr. Au on 12-02-2022 Urea nitrogen [Mass/Vol] 63 mg/dL 7-18 [facility] Basophil percentageOrdered B y: Dr. Espino on 11-24-2022 Bilirubin [Mass/Vol] 0.90 mg/dL 0.20-1.00 [facility] Comment on above: For patients on eltr ombopag therapy, use of Dimension [place] TBIL is not recommended. Chloride [Moles/Vol] 107 mmol/L 98-107 [facility] Cholesterol [Mass/Vol] 103 mg/dL <200 [facility] Comment on above: <200 mg/dL Desirable 200-240 mg/dL Borderline >240 mg/dL High Risk Glucose [Mass/Vol] 142 mg/dL 74-106 [facility] Comment on above: Fasting Glucose resu lt greater than or equal to 126 mg/dL suggests DIABETES MELLITUS per A.D.A. criteria. Potassium [Moles/Vol] 4.6 mmol/L 3.5-5.1 [facility] Protein [Mass/Vol] 7.6 g/dL 6.4-8.2 [facility] Sodium [Moles/Vol] 142 mmol/L 136-145 [facility] Triglyceride [Mass/Vol] 141 mg/dL <199 [facility] Comment on above: The drugs N-Acetylcy steine and Metamizole may falsely depress this assay.Serum Triglycerides Reference Interval Normal <150 mg/dL Borderline high 150 - 199 mg/dL High 200 - 499 mg/dL Very High > or = 500 mg/dL WBC (Bld) [#/Vol] 9.1 10*3/uL 4.4-11.0 [facility] Blood erythrocytes count (nu mber/volume)Ordered By: Dr. Espino on 11-24-2022 RBC (Bld) [#/Vol] 3.51 10*6/uL 4.6-6.2 [facility] Blood hemoglobin measurement (mass/volume)Ordered By: Dr. Espino on 11-24-2022 Hemoglobin (Bld) [Mass/Vol] 11.3 g/dL 13.0-16.5 [facility] Blood platelet mean volumeOr dered By: Dr. Espino on 11-24-2022 Platelet mean volume (Bld) [Entitic vol] 11.1 fL 6.2-12.0 [facility] Determination of erythrocyte mean corpuscular volume (MCV)Ordered By: Dr. Espino on 11-24-2022 MCV (RBC) [Entitic vol] 99.7 fL 80-94 [facility] Hematocrit Auto (Bld) [Volum e fraction]Ordered By: Dr. Espino on 11-24-2022 Hematocrit (Bld) [Volume fraction] 35.0 % 40-54 [facility] Laboratory - Chemistry and C hemistry - challengeOrdered By: Dr. Espino on 11-24-2022 ALP [Catalytic activity/Vol] 135 U/L 45-117 [facility] ALT [Catalytic activity/Vol] 17 U/L 16-61 [facility] CO2 [Moles/Vol] 30.0 mmol/L 21.0-32.0 [facility] Globulin (S) [Mass/Vol] 4.3 g/dL 2.2-4.2 [facility] Urea nitrogen/Creatinine [Mass ratio] 23.0 mg/mg 10-20 [facility] Laboratory - Hematology and Cell countsOrdered By: Dr. Espino on 11-24-2022 Erythrocyte distribution width (RBC) [Entitic vol] 52.0 fL 35.1-43.9 [facility] Erythrocyte distribution width (RBC) [Ratio] 14.4 % 11.6-14.6 [facility] MCH (RBC) [Entitic mass] 32.2 pg 27.0-32.0 [facility] MCHC Auto (RBC) [Mass/Vol]Or dered By: Dr. Espino on 11-24-2022 MCHC (RBC) [Mass/Vol] 32.3 g/dL 32-36 [facility] No Panel InformationOrdered By: Dr. Espino on 11-24-2022 Estimated GFR (MDRD) Amer 33 mL/min >60 [facility] Comment on above: GFR Calc Estimated GFR (MDRD) Non-Af Amer 27 mL/min >60 [facility] Comment on above: Non- GFR Calc Thyroid Stimulating Hormone (TSH) 5.30 uIU/mL 0.358-3.74 [facility] Platelets bldOrdered By: Dr. Espino on 11-24-2022 Platelets (Bld) [#/Vol] 148 10*3/uL 150-450 [facility] Serum or plasma albumin aubree urement (mass/volume)Ordered By: Dr. Espino on 11-24-2022 Albumin [Mass/Vol] 3.3 g/dL 3.2-5.0 [facility] Serum or plasma albumin/glob ulin mass ratioOrdered By: Dr. Espino on 11-24-2022 Albumin/Globulin [Mass ratio] 0.8 {ratio} 0.9-2.4 [facility] Serum or plasma calcium aubree urement (mass/volume)Ordered By: Dr. Espino on 11-24-2022 Calcium [Mass/Vol] 9.0 mg/dL 8.5-10.1 [facility] Serum or plasma cholesterol in HDL measurement (mass/volume)Ordered By: Dr. Espino on 11-24-2022 Cholesterol in HDL [Mass/Vol] 29 mg/dL >40 [facility] Comment on above: The drugs N-Acetylcy steine and Metamizole may falsely depress this assay. Reference Range HDL <40 mg/dL Low HDL Cholesterol HDL >or= 60 mg/dL High HDL Cholesterol Serum or plasma cholesterol in VLDL measurement (mass/volume)Ordered By: Dr. Espino on 11-24-2022 Cholesterol in VLDL [Mass/Vol] 28 mg/dL 5-40 [facility] Serum or plasma creatinine m easurement (mass/volume)Ordered By: Dr. Espino on 11-24-2022 Creatinine [Mass/Vol] 2.44 mg/dL 0.70-1.30 [facility] Comment on above: The validity of the calculated GFR & GFRAA in patients over 70 years has not been determined. Clinical correlation is essential. Serum or plasma low density lipoprotein (LDL) cholesterol measurement (mass/volume)Ordered By: Dr. Espino on 11-24-2022 Cholesterol in LDL [Mass/Vol] 46 mg/dL 0-130 [facility] Serum or plasma urea nitroge n measurement (mass/volume)Ordered By: Dr. Espino on 11-24-2022 Urea nitrogen [Mass/Vol] 56 mg/dL 7-18 [facility] Thin prep Papanicolaou smear with manual screeningOrdered By: Dr. Espino on 11-24-2022 Thin prep Papanicolaou smear with manual screening 19 U/L 15-37 [facility] Thin prep Papanicolaou smear with manual screening 5 5-15 [facility] Whole blood hemoglobin A1c/t otal hemoglobin ratio (mass fraction)Ordered By: Dr. Espino on 11-24-2022 HbA1c (Bld) [Mass fraction] 5.8 % 3.8-5.6 [facility] Comment on above: Normal < 5.7 % Predi abetic 5.7 - 6.4 % Diabetic >or= 6.5 % Please note range changes. Absolute lymphocyte countOrd ered By: Dr. Au on 11-01-2022 Lymphocytes Auto (Unsp spec) [#/Vol] 2.34 10*3/uL 0.83-4.51 [facility] Basophil percentageOrdered B y: Dr. Au on 11-01-2022 Basophil percentage 3.7 mg/dL 2.5-4.9 [facility] Basophils/100 WBC (Bld) 0.4 % 0-1 [facility] Chloride [Moles/Vol] 105 mmol/L 98-107 [facility] Eosinophils/100 WBC (Bld) 2.1 % 0-5 [facility] Glucose [Mass/Vol] 168 mg/dL 74-106 [facility] Comment on above: Fasting Glucose resu lt greater than or equal to 126 mg/dL suggests DIABETES MELLITUS per A.D.A. criteria. Neutrophils (Bld) [#/Vol] 7.0 10*3/uL 2.0-7.7 [facility] Neutrophils/100 WBC (Bld) 67.9 % 47-70 [facility] Potassium [Moles/Vol] 4.0 mmol/L 3.5-5.1 [facility] Sodium [Moles/Vol] 140 mmol/L 136-145 [facility] WBC (Bld) [#/Vol] 10.3 10*3/uL 4.4-11.0 [facility] Blood erythrocytes count (nu mber/volume)Ordered By: Dr. Au on 11-01-2022 RBC (Bld) [#/Vol] 3.58 10*6/uL 4.6-6.2 [facility] Blood hemoglobin measurement (mass/volume)Ordered By: Dr. Au on 11-01-2022 Hemoglobin (Bld) [Mass/Vol] 11.2 g/dL 13.0-16.5 [facility] Blood lymphocytes/100 leukoc ytesOrdered By: Dr. Au on 11-01-2022 Lymphocytes/100 WBC (Bld) 22.7 % 19-41 [facility] Blood monocytes/100 leukocyt esOrdered By: Dr. Au on 11-01-2022 Monocytes/100 WBC (Bld) 6.5 % 0-10 [facility] Blood platelet mean volumeOr dered By: Dr. Au on 11-01-2022 Platelet mean volume (Bld) [Entitic vol] 10.0 fL 6.2-12.0 [facility] Determination of erythrocyte mean corpuscular volume (MCV)Ordered By: Dr. Au on 11-01-2022 MCV (RBC) [Entitic vol] 99.2 fL 80-94 [facility] Hematocrit Auto (Bld) [Volum e fraction]Ordered By: Dr. Au on 11-01-2022 Hematocrit (Bld) [Volume fraction] 35.5 % 40-54 [facility] Iron measurement (mass/mass) Ordered By: Dr. Au on 11-01-2022 Iron (Unsp spec) [Mass/Mass] 69 ug/dL 65-175 [facility] Laboratory - Chemistry and C hemistry - challengeOrdered By: Dr. Au on 11-01-2022 CO2 [Moles/Vol] 29.0 mmol/L 21.0-32.0 [facility] Urea nitrogen/Creatinine [Mass ratio] 21.5 mg/mg 10-20 [facility] Laboratory - Hematology and Cell countsOrdered By: Dr. Au on 11-01-2022 Erythrocyte distribution width (RBC) [Entitic vol] 51.2 fL 35.1-43.9 [facility] Erythrocyte distribution width (RBC) [Ratio] 14.4 % 11.6-14.6 [facility] Immature granulocytes/100 WBC (Bld) 0.400 % 0.0-0.9 [facility] Comment on above: IG% - Immature Granu locytes (promyelocytes, myelocytes and metamyelocytes) > 1% indicates that a LEFT SHIFT is Present. MCH (RBC) [Entitic mass] 31.3 pg 27.0-32.0 [facility] Nucleated RBC/100 WBC (Bld) [Ratio] 0 % 0-5 [facility] MCHC Auto (RBC) [Mass/Vol]Or dered By: Dr. Au on 11-01-2022 MCHC (RBC) [Mass/Vol] 31.5 g/dL 32-36 [facility] No Panel InformationOrdered By: Dr. Au on 11-01-2022 Estimated GFR (MDRD) Amer 30 mL/min >60 [facility] Comment on above: GFR Calc Estimated GFR (MDRD) Non-Af Amer 25 mL/min >60 [facility] Comment on above: Non- GFR Calc Total Iron Binding Capacity 228 ug/dL 250-450 [facility] Platelets bldOrdered By: Dr. Au on 11-01-2022 Platelets (Bld) [#/Vol] 155 10*3/uL 150-450 [facility] Serum or plasma albumin aubree urement (mass/volume)Ordered By: Dr. Au on 11-01-2022 Albumin [Mass/Vol] 3.3 g/dL 3.2-5.0 [facility] Serum or plasma calcium aubree urement (mass/volume)Ordered By: Dr. Au on 11-01-2022 Calcium [Mass/Vol] 9.6 mg/dL 8.5-10.1 [facility] Serum or plasma creatinine m easurement (mass/volume)Ordered By: Dr. Au on 11-01-2022 Creatinine [Mass/Vol] 2.61 mg/dL 0.70-1.30 [facility] Comment on above: The validity of the calculated GFR & GFRAA in patients over 70 years has not been determined. Clinical correlation is essential. Serum or plasma ferritin laurie surement (mass/volume)Ordered By: Dr. Au on 11-01-2022 Ferritin [Mass/Vol] 166 ng/mL 26-388 [facility] Serum or plasma iron saturat ion measurement (mass fraction)Ordered By: Dr. Au on 11-01-2022 Iron saturation [Mass fraction] 30.3 % 15.0-55.0 [facility] Serum or plasma urea nitroge n measurement (mass/volume)Ordered By: Dr. Au on 11-01-2022 Urea nitrogen [Mass/Vol] 56 mg/dL 7-18 [facility] Absolute lymphocyte countOrd ered By: Dr. Au on 10-04-2022 Lymphocytes Auto (Unsp spec) [#/Vol] 1.62 10*3/uL 0.83-4.51 [facility] Basophil percentageOrdered B y: Dr. Au on 10-04-2022 Basophil percentage 2.5 mg/dL 2.5-4.9 [facility] Basophils/100 WBC (Bld) 0.3 % 0-1 [facility] Chloride [Moles/Vol] 107 mmol/L 98-107 [facility] Eosinophils/100 WBC (Bld) 2.3 % 0-5 [facility] Glucose [Mass/Vol] 180 mg/dL 74-106 [facility] Comment on above: Fasting Glucose resu lt greater than or equal to 126 mg/dL suggests DIABETES MELLITUS per A.D.A. criteria. Neutrophils (Bld) [#/Vol] 6.5 10*3/uL 2.0-7.7 [facility] Neutrophils/100 WBC (Bld) 73.0 % 47-70 [facility] Potassium [Moles/Vol] 4.3 mmol/L 3.5-5.1 [facility] Sodium [Moles/Vol] 140 mmol/L 136-145 [facility] WBC (Bld) [#/Vol] 9.0 10*3/uL 4.4-11.0 [facility] Blood erythrocytes count (nu mber/volume)Ordered By: Dr. Au on 10-04-2022 RBC (Bld) [#/Vol] 3.42 10*6/uL 4.6-6.2 [facility] Blood hemoglobin measurement (mass/volume)Ordered By: Dr. Au on 10-04-2022 Hemoglobin (Bld) [Mass/Vol] 10.7 g/dL 13.0-16.5 [facility] Blood lymphocytes/100 leukoc ytesOrdered By: Dr. Au on 10-04-2022 Lymphocytes/100 WBC (Bld) 18.1 % 19-41 [facility] Blood monocytes/100 leukocyt esOrdered By: Dr. Au on 10-04-2022 Monocytes/100 WBC (Bld) 6.0 % 0-10 [facility] Blood platelet mean volumeOr dered By: Dr. Au on 10-04-2022 Platelet mean volume (Bld) [Entitic vol] 10.7 fL 6.2-12.0 [facility] Determination of erythrocyte mean corpuscular volume (MCV)Ordered By: Dr. Au on 10-04-2022 MCV (RBC) [Entitic vol] 98.8 fL 80-94 [facility] Hematocrit Auto (Bld) [Volum e fraction]Ordered By: Dr. Au on 10-04-2022 Hematocrit (Bld) [Volume fraction] 33.8 % 40-54 [facility] Iron measurement (mass/mass) Ordered By: Dr. Au on 10-04-2022 Iron (Unsp spec) [Mass/Mass] 56 ug/dL 65-175 [facility] Laboratory - Chemistry and C hemistry - challengeOrdered By: Dr. Au on 10-04-2022 CO2 [Moles/Vol] 29.0 mmol/L 21.0-32.0 [facility] Urea nitrogen/Creatinine [Mass ratio] 19.6 mg/mg 10-20 [facility] Laboratory - Hematology and Cell countsOrdered By: Dr. Au on 10-04-2022 Erythrocyte distribution width (RBC) [Entitic vol] 52.6 fL 35.1-43.9 [facility] Erythrocyte distribution width (RBC) [Ratio] 14.6 % 11.6-14.6 [facility] Immature granulocytes/100 WBC (Bld) 0.300 % 0.0-0.9 [facility] Comment on above: IG% - Immature Granu locytes (promyelocytes, myelocytes and metamyelocytes) > 1% indicates that a LEFT SHIFT is Present. MCH (RBC) [Entitic mass] 31.3 pg 27.0-32.0 [facility] Nucleated RBC/100 WBC (Bld) [Ratio] 0 % 0-5 [facility] MCHC Auto (RBC) [Mass/Vol]Or dered By: Dr. Au on 10-04-2022 MCHC (RBC) [Mass/Vol] 31.7 g/dL 32-36 [facility] No Panel InformationOrdered By: Dr. Au on 10-04-2022 Estimated GFR (MDRD) Amer 34 mL/min >60 [facility] Comment on above: GFR Calc Estimated GFR (MDRD) Non-Af Amer 28 mL/min >60 [facility] Comment on above: Non- GFR Calc Total Iron Binding Capacity 276 ug/dL 250-450 [facility] Platelets bldOrdered By: Dr. Au on 10-04-2022 Platelets (Bld) [#/Vol] 145 10*3/uL 150-450 [facility] Serum or plasma albumin aubree urement (mass/volume)Ordered By: Dr. Au on 10-04-2022 Albumin [Mass/Vol] 3.0 g/dL 3.2-5.0 [facility] Serum or plasma calcium aubree urement (mass/volume)Ordered By: Dr. Au on 10-04-2022 Calcium [Mass/Vol] 9.1 mg/dL 8.5-10.1 [facility] Serum or plasma creatinine m easurement (mass/volume)Ordered By: Dr. Au on 10-04-2022 Creatinine [Mass/Vol] 2.35 mg/dL 0.70-1.30 [facility] Comment on above: The validity of the calculated GFR & GFRAA in patients over 70 years has not been determined. Clinical correlation is essential. Serum or plasma ferritin laurie surement (mass/volume)Ordered By: Dr. Au on 10-04-2022 Ferritin [Mass/Vol] 205 ng/mL 26-388 [facility] Serum or plasma iron saturat ion measurement (mass fraction)Ordered By: Dr. Au on 10-04-2022 Iron saturation [Mass fraction] 20.3 % 15.0-55.0 [facility] Serum or plasma urea nitroge n measurement (mass/volume)Ordered By: Dr. Au on 10-04-2022 Urea nitrogen [Mass/Vol] 46 mg/dL 7-18 [facility] Absolute lymphocyte countOrd ered By: Dr. Au on 09-29-2022 Lymphocytes Auto (Unsp spec) [#/Vol] 1.94 10*3/uL 0.83-4.51 [facility] Basophil percentageOrdered B y: Dr. Au on 09-29-2022 Basophil percentage 3.0 mg/dL 2.5-4.9 [facility] Basophils/100 WBC (Bld) 0.4 % 0-1 [facility] Chloride [Moles/Vol] 105 mmol/L 98-107 [facility] Eosinophils/100 WBC (Bld) 2.3 % 0-5 [facility] Glucose [Mass/Vol] 121 mg/dL 74-106 [facility] Comment on above: Fasting Glucose resu lt from 100 to 125 mg/dL suggests IMPAIRED HOMEOSTASIS per A.D.A. criteria. Neutrophils (Bld) [#/Vol] 6.8 10*3/uL 2.0-7.7 [facility] Neutrophils/100 WBC (Bld) 70.7 % 47-70 [facility] Potassium [Moles/Vol] 4.0 mmol/L 3.5-5.1 [facility] Sodium [Moles/Vol] 139 mmol/L 136-145 [facility] WBC (Bld) [#/Vol] 9.6 10*3/uL 4.4-11.0 [facility] Blood erythrocytes count (nu mber/volume)Ordered By: Dr. Au on 09-29-2022 RBC (Bld) [#/Vol] 3.42 10*6/uL 4.6-6.2 [facility] Blood hemoglobin measurement (mass/volume)Ordered By: Dr. Au on 09-29-2022 Hemoglobin (Bld) [Mass/Vol] 10.9 g/dL 13.0-16.5 [facility] Blood lymphocytes/100 leukoc ytesOrdered By: Dr. Au on 09-29-2022 Lymphocytes/100 WBC (Bld) 20.2 % 19-41 [facility] Blood monocytes/100 leukocyt esOrdered By: Dr. Au on 09-29-2022 Monocytes/100 WBC (Bld) 5.9 % 0-10 [facility] Blood platelet mean volumeOr dered By: Dr. Au on 09-29-2022 Platelet mean volume (Bld) [Entitic vol] 10.8 fL 6.2-12.0 [facility] Determination of erythrocyte mean corpuscular volume (MCV)Ordered By: Dr. Au on 09-29-2022 MCV (RBC) [Entitic vol] 100.3 fL 80-94 [facility] Hematocrit Auto (Bld) [Volum e fraction]Ordered By: Dr. Au on 09-29-2022 Hematocrit (Bld) [Volume fraction] 34.3 % 40-54 [facility] Iron measurement (mass/mass) Ordered By: Dr. Au on 09-29-2022 Iron (Unsp spec) [Mass/Mass] 58 ug/dL 65-175 [facility] Laboratory - Chemistry and C hemistry - challengeOrdered By: Dr. Au on 09-29-2022 CO2 [Moles/Vol] 29.0 mmol/L 21.0-32.0 [facility] Urea nitrogen/Creatinine [Mass ratio] 23.3 mg/mg 10-20 [facility] Laboratory - Hematology and Cell countsOrdered By: Dr. Au on 09-29-2022 Erythrocyte distribution width (RBC) [Entitic vol] 53.1 fL 35.1-43.9 [facility] Erythrocyte distribution width (RBC) [Ratio] 14.7 % 11.6-14.6 [facility] Immature granulocytes/100 WBC (Bld) 0.500 % 0.0-0.9 [facility] Comment on above: IG% - Immature Granu locytes (promyelocytes, myelocytes and metamyelocytes) > 1% indicates that a LEFT SHIFT is Present. MCH (RBC) [Entitic mass] 31.9 pg 27.0-32.0 [facility] Nucleated RBC/100 WBC (Bld) [Ratio] 0 % 0-5 [facility] MCHC Auto (RBC) [Mass/Vol]Or dered By: Dr. Au on 09-29-2022 MCHC (RBC) [Mass/Vol] 31.8 g/dL 32-36 [facility] No Panel InformationOrdered By: Dr. Au on 09-29-2022 Estimated GFR (MDRD) Amer 36 mL/min >60 [facility] Comment on above: GFR Calc Estimated GFR (MDRD) Non-Af Amer 30 mL/min >60 [facility] Comment on above: Non- GFR Calc Parathyroid Hormone (Intact) 113.6 pg/mL 18.4-80.1 [facility] Total Iron Binding Capacity 220 ug/dL 250-450 [facility] Platelets bldOrdered By: Dr. Au on 09-29-2022 Platelets (Bld) [#/Vol] 163 10*3/uL 150-450 [facility] Serum or plasma albumin aubree urement (mass/volume)Ordered By: Dr. Au on 09-29-2022 Albumin [Mass/Vol] 3.0 g/dL 3.2-5.0 [facility] Serum or plasma calcium aubree urement (mass/volume)Ordered By: Dr. Au on 09-29-2022 Calcium [Mass/Vol] 8.8 mg/dL 8.5-10.1 [facility] Serum or plasma creatinine m easurement (mass/volume)Ordered By: Dr. Au on 09-29-2022 Creatinine [Mass/Vol] 2.27 mg/dL 0.70-1.30 [facility] Comment on above: The validity of the calculated GFR & GFRAA in patients over 70 years has not been determined. Clinical correlation is essential. Serum or plasma ferritin laurie surement (mass/volume)Ordered By: Dr. Au on 09-29-2022 Ferritin [Mass/Vol] 185 ng/mL 26-388 [facility] Serum or plasma iron saturat ion measurement (mass fraction)Ordered By: Dr. Au on 09-29-2022 Iron saturation [Mass fraction] 26.4 % 15.0-55.0 [facility] Serum or plasma urea nitroge n measurement (mass/volume)Ordered By: Dr. Au on 09-29-2022 Urea nitrogen [Mass/Vol] 53 mg/dL 7-18 [facility] Serum or plasma uric acid me asurement (mass/volume)Ordered By: Dr. Au on 09-29-2022 Urate [Mass/Vol] 6.3 mg/dL 3.5-7.2 [facility] Comment on above: The drugs N-Acetylcy steine and Metamizole may falsely depress this assay. Urine creatinine measurement (mass/volume)Ordered By: Dr. Au on 09-29-2022 Creatinine (U) [Mass/Vol] 54.30 mg/dL NO RANGE EST. [facility] Urine protein measurement (m ass/volume)Ordered By: Dr. Au on 09-29-2022 Protein (U) [Mass/Vol] 55.8 mg/dL 0.0-11.8 [facility] Urine protein/creatinine mas s ratioOrdered By: Dr. Au on 09-29-2022 Protein/Creatinine (U) [Mass ratio] 1028 mg/g CRE 0-200 [facility] Absolute lymphocyte countOrd ered By: Dr. Au on 09-06-2022 Lymphocytes Auto (Unsp spec) [#/Vol] 1.88 10*3/uL 0.83-4.51 [facility] Basophil percentageOrdered B y: Dr. Au on 09-06-2022 Basophil percentage 3.0 mg/dL 2.5-4.9 [facility] Basophils/100 WBC (Bld) 0.4 % 0-1 [facility] Chloride [Moles/Vol] 106 mmol/L 98-107 [facility] Eosinophils/100 WBC (Bld) 2.5 % 0-5 [facility] Glucose [Mass/Vol] 104 mg/dL 74-106 [facility] Comment on above: Fasting Glucose resu lt from 100 to 125 mg/dL suggests IMPAIRED HOMEOSTASIS per A.D.A. criteria. Neutrophils (Bld) [#/Vol] 7.0 10*3/uL 2.0-7.7 [facility] Neutrophils/100 WBC (Bld) 69.8 % 47-70 [facility] Potassium [Moles/Vol] 3.9 mmol/L 3.5-5.1 [facility] Sodium [Moles/Vol] 141 mmol/L 136-145 [facility] WBC (Bld) [#/Vol] 10.0 10*3/uL 4.4-11.0 [facility] Blood erythrocytes count (nu mber/volume)Ordered By: Dr. Au on 09-06-2022 RBC (Bld) [#/Vol] 3.44 10*6/uL 4.6-6.2 [facility] Blood hemoglobin measurement (mass/volume)Ordered By: Dr. Au on 09-06-2022 Hemoglobin (Bld) [Mass/Vol] 10.6 g/dL 13.0-16.5 [facility] Blood lymphocytes/100 leukoc ytesOrdered By: Dr. Au on 09-06-2022 Lymphocytes/100 WBC (Bld) 18.9 % 19-41 [facility] Blood monocytes/100 leukocyt esOrdered By: Dr. Au on 09-06-2022 Monocytes/100 WBC (Bld) 7.9 % 0-10 [facility] Blood platelet mean volumeOr dered By: Dr. Au on 09-06-2022 Platelet mean volume (Bld) [Entitic vol] 10.5 fL 6.2-12.0 [facility] Determination of erythrocyte mean corpuscular volume (MCV)Ordered By: Dr. Au on 09-06-2022 MCV (RBC) [Entitic vol] 98.5 fL 80-94 [facility] Hematocrit Auto (Bld) [Volum e fraction]Ordered By: Dr. Au on 09-06-2022 Hematocrit (Bld) [Volume fraction] 33.9 % 40-54 [facility] Iron measurement (mass/mass) Ordered By: Dr. Au on 09-06-2022 Iron (Unsp spec) [Mass/Mass] 52 ug/dL 65-175 [facility] Laboratory - Chemistry and C hemistry - challengeOrdered By: Dr. Au on 09-06-2022 CO2 [Moles/Vol] 30.0 mmol/L 21.0-32.0 [facility] Urea nitrogen/Creatinine [Mass ratio] 21.3 mg/mg 10-20 [facility] - Hematology and Cell countsOrdered By: Dr. Au on 09-06-2022 Erythrocyte distribution width (RBC) [Entitic vol] 51.6 fL 35.1-43.9 [facility] Erythrocyte distribution width (RBC) [Ratio] 14.4 % 11.6-14.6 [facility] Immature granulocytes/100 WBC (Bld) 0.500 % 0.0-0.9 [facility] Comment on above: IG% - Immature Granu locytes (promyelocytes, myelocytes and metamyelocytes) > 1% indicates that a LEFT SHIFT is Present. MCH (RBC) [Entitic mass] 30.8 pg 27.0-32.0 [facility] Nucleated RBC/100 WBC (Bld) [Ratio] 0 % 0-5 [facility] MCHC Auto (RBC) [Mass/Vol]Or dered By: Dr. Au on 09-06-2022 MCHC (RBC) [Mass/Vol] 31.3 g/dL 32-36 [facility] No Panel InformationOrdered By: Dr. Au on 09-06-2022 Estimated GFR (MDRD) Amer 32 mL/min >60 [facility] Comment on above: GFR Calc Estimated GFR (MDRD) Non-Af Amer 26 mL/min >60 [facility] Comment on above: Non- GFR Calc Parathyroid Hormone (Intact) 33.7 pg/mL 18.4-80.1 [facility] Total Iron Binding Capacity 215 ug/dL 250-450 [facility] Platelets bldOrdered By: Dr. Au on 09-06-2022 Platelets (Bld) [#/Vol] 155 10*3/uL 150-450 [facility] Serum or plasma albumin aubree urement (mass/volume)Ordered By: Dr. Au on 09-06-2022 Albumin [Mass/Vol] 2.9 g/dL 3.2-5.0 [facility] Serum or plasma calcium aubree urement (mass/volume)Ordered By: Dr. Au on 09-06-2022 Calcium [Mass/Vol] 9.2 mg/dL 8.5-10.1 [facility] Serum or plasma creatinine m easurement (mass/volume)Ordered By: Dr. Au on 09-06-2022 Creatinine [Mass/Vol] 2.53 mg/dL 0.70-1.30 [facility] Comment on above: The validity of the calculated GFR & GFRAA in patients over 70 years has not been determined. Clinical correlation is essential. Serum or plasma ferritin laurie surement (mass/volume)Ordered By: Dr. Au on 09-06-2022 Ferritin [Mass/Vol] 172 ng/mL 26-388 [facility] Serum or plasma iron saturat ion measurement (mass fraction)Ordered By: Dr. Au on 09-06-2022 Iron saturation [Mass fraction] 24.2 % 15.0-55.0 [facility] Serum or plasma urea nitroge n measurement (mass/volume)Ordered By: Dr. Au on 09-06-2022 Urea nitrogen [Mass/Vol] 54 mg/dL 7-18 [facility] Basophil percentageOrdered B y: Dr. Espino on 08-27-2022 Bilirubin [Mass/Vol] 0.90 mg/dL 0.20-1.00 [facility] Comment on above: For patients on eltr ombopag therapy, use of Dimension [place] TBIL is not recommended. Chloride [Moles/Vol] 103 mmol/L 98-107 [facility] Glucose [Mass/Vol] 114 mg/dL 74-106 [facility] Comment on above: Fasting Glucose resu lt from 100 to 125 mg/dL suggests IMPAIRED HOMEOSTASIS per A.D.A. criteria. Potassium [Moles/Vol] 4.1 mmol/L 3.5-5.1 [facility] Protein [Mass/Vol] 8.0 g/dL 6.4-8.2 [facility] Sodium [Moles/Vol] 141 mmol/L 136-145 [facility] WBC (Bld) [#/Vol] 9.5 10*3/uL 4.4-11.0 [facility] Blood erythrocytes count (nu mber/volume)Ordered By: Dr. Espino on 08-27-2022 RBC (Bld) [#/Vol] 3.64 10*6/uL 4.6-6.2 [facility] Blood hemoglobin measurement (mass/volume)Ordered By: Dr. Espino on 08-27-2022 Hemoglobin (Bld) [Mass/Vol] 11.3 g/dL 13.0-16.5 [facility] Blood platelet mean volumeOr dered By: Dr. Espino on 08-27-2022 Platelet mean volume (Bld) [Entitic vol] 10.9 fL 6.2-12.0 [facility] Determination of erythrocyte mean corpuscular volume (MCV)Ordered By: Dr. Espino on 08-27-2022 MCV (RBC) [Entitic vol] 99.5 fL 80-94 [facility] Hematocrit Auto (Bld) [Volum e fraction]Ordered By: Dr. Espino on 08-27-2022 Hematocrit (Bld) [Volume fraction] 36.2 % 40-54 [facility] Laboratory - Chemistry and C hemistry - challengeOrdered By: Dr. Espino on 08-27-2022 ALP [Catalytic activity/Vol] 127 U/L 45-117 [facility] ALT [Catalytic activity/Vol] 19 U/L 16-61 [facility] CO2 [Moles/Vol] 32.0 mmol/L 21.0-32.0 [facility] Globulin (S) [Mass/Vol] 5.0 g/dL 2.2-4.2 [facility] Urea nitrogen/Creatinine [Mass ratio] 17.8 mg/mg 10-20 [facility] Laboratory - Hematology and Cell countsOrdered By: Dr. Espino on 08-27-2022 Erythrocyte distribution width (RBC) [Entitic vol] 51.9 fL 35.1-43.9 [facility] Erythrocyte distribution width (RBC) [Ratio] 14.4 % 11.6-14.6 [facility] MCH (RBC) [Entitic mass] 31.0 pg 27.0-32.0 [facility] MCHC Auto (RBC) [Mass/Vol]Or dered By: Dr. Espino on 08-27-2022 MCHC (RBC) [Mass/Vol] 31.2 g/dL 32-36 [facility] No Panel InformationOrdered By: Dr. Espino on 08-27-2022 Estimated GFR (MDRD) Amer 29 mL/min >60 [facility] Comment on above: GFR Calc Estimated GFR (MDRD) Non-Af Amer 24 mL/min >60 [facility] Comment on above: Non- GFR Calc Platelets bldOrdered By: Dr. Espino on 08-27-2022 Platelets (Bld) [#/Vol] 147 10*3/uL 150-450 [facility] Serum or plasma albumin aubree urement (mass/volume)Ordered By: Dr. Espino on 08-27-2022 Albumin [Mass/Vol] 3.0 g/dL 3.2-5.0 [facility] Serum or plasma albumin/glob ulin mass ratioOrdered By: Dr. Espino on 08-27-2022 Albumin/Globulin [Mass ratio] 0.6 {ratio} 0.9-2.4 [facility] Serum or plasma calcium aubree urement (mass/volume)Ordered By: Dr. Espino on 08-27-2022 Calcium [Mass/Vol] 9.5 mg/dL 8.5-10.1 [facility] Serum or plasma creatinine m easurement (mass/volume)Ordered By: Dr. Espino on 08-27-2022 Creatinine [Mass/Vol] 2.69 mg/dL 0.70-1.30 [facility] Comment on above: The validity of the calculated GFR & GFRAA in patients over 70 years has not been determined. Clinical correlation is essential. Serum or plasma urea nitroge n measurement (mass/volume)Ordered By: Dr. Espino on 08-27-2022 Urea nitrogen [Mass/Vol] 48 mg/dL 7-18 [facility] Thin prep Papanicolaou smear with manual screeningOrdered By: Dr. Espino on 08-27-2022 Thin prep Papanicolaou smear with manual screening 20 U/L 15-37 [facility] Thin prep Papanicolaou smear with manual screening 6 5-15 [facility] Whole blood hemoglobin A1c/t otal hemoglobin ratio (mass fraction)Ordered By: Dr. Espino on 08-27-2022 HbA1c (Bld) [Mass fraction] 6.3 % 3.8-5.6 [facility] Comment on above: Normal < 5.7 % Predi abetic 5.7 - 6.4 % Diabetic >or= 6.5 % Please note range changes. Absolute lymphocyte counton 08-09-2022 Lymphocytes Auto (Unsp spec) [#/Vol] 2.02 10*3/uL 0.83-4.51 [facility] Work Phone: Basophil percentageon 2021 Basophil percentage 3.8 mg/dL 2.5-4.9 [facility] Work Phone: Basophils/100 WBC (Bld) 0.2 % 0-1 [facility] Work Phone: Chloride [Moles/Vol] 106 mmol/L 98-107 [facility] Work [facility]: Eosinophils/100 WBC (Bld) 3.5 % 0-5 [facility] Work Phone: Glucose [Mass/Vol] 114 mg/dL 74-106 [facility] Work Phone: Comment on above: Fasting Glucose resu lt from 100 to 125 mg/dL suggests IMPAIRED HOMEOSTASIS per A.D.A. criteria. Neutrophils (Bld) [#/Vol] 6.9 10*3/uL 2.0-7.7 [facility] Work Phone: Neutrophils/100 WBC (Bld) 68.8 % 47-70 [facility] Work Phone: Potassium [Moles/Vol] 4.3 mmol/L 3.5-5.1 [facility] Work Phone: Sodium [Moles/Vol] 141 mmol/L 136-145 [facility] Work Phone: WBC (Bld) [#/Vol] 10.0 10*3/uL 4.4-11.0 [facility] Work Phone: Blood erythrocytes count (nu mber/volume)on 08-09-2022 RBC (Bld) [#/Vol] 3.45 10*6/uL 4.6-6.2 [facility] Work Phone: Blood hemoglobin measurement (mass/volume)on 08-09-2022 Hemoglobin (Bld) [Mass/Vol] 11.2 g/dL 13.0-16.5 [facility] Work Phone: Blood lymphocytes/100 leukoc yteson 09-12-2022 Lymphocytes/100 WBC (Bld) 20.2 % 19-41 [facility] Work Phone: Blood monocytes/100 leukocyt eson 08-09-2022 Monocytes/100 WBC (Bld) 6.9 % 0-10 [facility] Work Phone: Blood platelet mean volumeon 08-09-2022 Platelet mean volume (Bld) [Entitic vol] 10.0 fL 6.2-12.0 [facility] Work Phone: Determination of erythrocyte mean corpuscular volume (MCV)on 08-09-2022 MCV (RBC) [Entitic vol] 98.6 fL 80-94 [facility] Work Phone: Hematocrit Auto (Bld) [Volum e fraction]on 08-09-2022 Hematocrit (Bld) [Volume fraction] 34.0 % 40-54 [facility] Work Phone: Iron measurement (mass/mass) on 08-09-2022 Iron (Unsp spec) [Mass/Mass] 74 ug/dL 65-175 [facility] Work Phone: Laboratory - Chemistry and C hemistry - challengeon 08-09-2022 CO2 [Moles/Vol] 29.0 mmol/L 21.0-32.0 [facility] Work Phone: Urea nitrogen/Creatinine [Mass ratio] 24.0 mg/mg 10-20 [facility] Work Phone: Laboratory - Hematology and Cell countson 08-09-2022 Erythrocyte distribution width (RBC) [Entitic vol] 52.4 fL 35.1-43.9 [facility] Work Phone: Erythrocyte distribution width (RBC) [Ratio] 14.6 % 11.6-14.6 [facility] Work Phone: Immature granulocytes/100 WBC (Bld) 0.400 % 0.0-0.9 [facility] Work Phone: Comment on above: IG% - Immature Granu locytes (promyelocytes, myelocytes and metamyelocytes) > 1% indicates that a LEFT SHIFT is Present. MCH (RBC) [Entitic mass] 32.5 pg 27.0-32.0 [facility] Work Phone: Nucleated RBC/100 WBC (Bld) [Ratio] 0 % 0-5 [facility] Work Phone: MCHC Auto (RBC) [Mass/Vol]on 08-09-2022 MCHC (RBC) [Mass/Vol] 32.9 g/dL 32-36 [facility] Work Phone: No Panel Informationon 08-09 Estimated GFR (MDRD) Amer 27 mL/min >60 [facility] Work Phone: Comment on above: GFR Calc Estimated GFR (MDRD) Non-Af Amer 23 mL/min >60 [facility] Work Phone: Comment on above: Non- GFR Calc Total Iron Binding Capacity 217 ug/dL 250-450 [facility] Work Phone: Platelets bldon 08-09-2022 Platelets (Bld) [#/Vol] 147 10*3/uL 150-450 [facility] Work Phone: Serum or plasma albumin aubree urement (mass/volume)on 08-09-2022 Albumin [Mass/Vol] 3.1 g/dL 3.2-5.0 [facility] Work Phone: Serum or plasma calcium aubree urement (mass/volume)on 08-09-2022 Calcium [Mass/Vol] 10.8 mg/dL 8.5-10.1 [facility] Work Phone: Serum or plasma creatinine m easurement (mass/volume)on 08-09-2022 Creatinine [Mass/Vol] 2.87 mg/dL 0.70-1.30 [facility] Work Phone: Comment on above: The validity of the calculated GFR & GFRAA in patients over 70 years has not been determined. Clinical correlation is essential. Serum or plasma ferritin laurie surement (mass/volume)on 08-09-2022 Ferritin [Mass/Vol] 194 ng/mL 26-388 [facility] Work Phone: Serum or plasma iron saturat ion measurement (mass fraction)on 08-09-2022 Iron saturation [Mass fraction] 34.1 % 15.0-55.0 [facility] Work Phone: Serum or plasma urea nitroge n measurement (mass/volume)on 08-09-2022 Urea nitrogen [Mass/Vol] 69 mg/dL 7-18 [facility] Work Phone: INR in Blood by Coagulation assayon 07-16-2022 INR Coag (Bld) [Relative time] 1.7 {INR} [facility] Work Phone: Laboratory - Coagulationon 0 07-16-2022 PT Coag (PPP) [Time] 19.5 s 11.7-14.9 [facility] Work Phone: Absolute lymphocyte counton 07-12-2022 Lymphocytes Auto (Unsp spec) [#/Vol] 1.55 10*3/uL 0.83-4.51 [facility] Work Phone: Basophil percentageon 2021 Basophil percentage 2.9 mg/dL 2.5-4.9 [facility] Work Phone: Basophils/100 WBC (Bld) 0.4 % 0-1 [facility] Work Phone: Chloride [Moles/Vol] 107 mmol/L 98-107 [facility] Work Phone: Eosinophils/100 WBC (Bld) 2.8 % 0-5 [facility] Work Phone: Glucose [Mass/Vol] 182 mg/dL 74-106 [facility] Work Phone: Comment on above: Fasting Glucose resu lt greater than or equal to 126 mg/dL suggests DIABETES MELLITUS per A.D.A. criteria. Neutrophils (Bld) [#/Vol] 6.0 10*3/uL 2.0-7.7 [facility] Work Phone: Neutrophils/100 WBC (Bld) 70.9 % 47-70 [facility] Work Phone: [phone] Potassium [Moles/Vol] 4.2 mmol/L 3.5-5.1 [facility] Work Phone: [phone] Sodium [Moles/Vol] 139 mmol/L 136-145 [facility] Work Phone: [phone] WBC (Bld) [#/Vol] 8.5 10*3/uL 4.4-11.0 [facility] Work Phone: [phone] Blood erythrocytes count (nu mber/volume)on 07-12-2022 RBC (Bld) [#/Vol] 3.25 10*6/uL 4.6-6.2 [facility] Work Phone: [phone] Blood hemoglobin measurement (mass/volume)on 07-12-2022 Hemoglobin (Bld) [Mass/Vol] 10.3 g/dL 13.0-16.5 [facility] Work Phone: [phone] Blood lymphocytes/100 leukoc yteson 07-12-2022 Lymphocytes/100 WBC (Bld) 18.2 % 19-41 [facility] Work Phone: [phone] Blood monocytes/100 leukocyt eson 07-12-2022 Monocytes/100 WBC (Bld) 6.9 % 0-10 [facility] Work Phone: [phone] Blood platelet mean volumeon 07-12-2022 Platelet mean volume (Bld) [Entitic vol] 10.7 fL 6.2-12.0 [facility] Work Phone: [phone] Determination of erythrocyte mean corpuscular volume (MCV)on 07-12-2022 MCV (RBC) [Entitic vol] 97.2 fL 80-94 [facility] Work Phone: [phone] Hematocrit Auto (Bld) [Volum e fraction]on 07-12-2022 Hematocrit (Bld) [Volume fraction] 31.6 % 40-54 [facility] Work Phone: [phone] Iron measurement (mass/mass) on 07-12-2022 Iron (Unsp spec) [Mass/Mass] 66 ug/dL 65-175 [facility] Work Phone: [phone] Laboratory - Chemistry and C hemistry - challengeon 07-12-2022 CO2 [Moles/Vol] 27.0 mmol/L 21.0-32.0 [facility] Work Phone: [phone] Urea nitrogen/Creatinine [Mass ratio] 24.0 mg/mg 10-20 [facility] Work Phone: [phone] Laboratory - Hematology and Cell countson 07-12-2022 Erythrocyte distribution width (RBC) [Entitic vol] 50.8 fL 35.1-43.9 [facility] Work Phone: [phone] Erythrocyte distribution width (RBC) [Ratio] 14.6 % 11.6-14.6 [facility] Work Phone: [phone] Immature granulocytes/100 WBC (Bld) 0.800 % 0.0-0.9 [facility] Work Phone: [phone] Comment on above: IG% - Immature Granu locytes (promyelocytes, myelocytes and metamyelocytes) > 1% indicates that a LEFT SHIFT is Present. MCH (RBC) [Entitic mass] 31.7 pg 27.0-32.0 [facility] Work Phone: [phone] Nucleated RBC/100 WBC (Bld) [Ratio] 0 % 0-5 [facility] Work Phone: [phone] MCHC Auto (RBC) [Mass/Vol]on 07-12-2022 MCHC (RBC) [Mass/Vol] 32.6 g/dL 32-36 [facility] Work Phone: No Panel Informationon 07-12 Estimated GFR (MDRD) Amer 30 mL/min >60 [facility] Work Phone: [phone] Comment on above: GFR Calc Estimated GFR (MDRD) Non-Af Amer 25 mL/min >60 [facility] Work Phone: [phone] Comment on above: Non- GFR Calc Total Iron Binding Capacity 228 ug/dL 250-450 [facility] Work Phone: Platelets bldon 07-12-2022 Platelets (Bld) [#/Vol] 154 10*3/uL 150-450 [facility] Work Phone: Serum or plasma albumin aubree urement (mass/volume)on 07-12-2022 Albumin [Mass/Vol] 2.8 g/dL 3.2-5.0 [facility] Work Phone: [phone] Serum or plasma calcium aubree urement (mass/volume)on 07-12-2022 Calcium [Mass/Vol] 9.2 mg/dL 8.5-10.1 [facility] Work Phone: [phone] Serum or plasma creatinine m easurement (mass/volume)on 07-12-2022 Creatinine [Mass/Vol] 2.63 mg/dL 0.70-1.30 [facility] Work Phone: Comment on above: The validity of the calculated GFR & GFRAA in patients over 70 years has not been determined. Clinical correlation is essential. Serum or plasma ferritin laurie surement (mass/volume)on 07-12-2022 Ferritin [Mass/Vol] 227 ng/mL 26-388 [facility] Work Phone: Serum or plasma iron saturat ion measurement (mass fraction)on 07-12-2022 Iron saturation [Mass fraction] 28.9 % 15.0-55.0 [facility] Work Phone: Serum or plasma urea nitroge n measurement (mass/volume)on 07-12-2022 Urea nitrogen [Mass/Vol] 63 mg/dL 7-18 [facility] Work Phone: [phone] Basophil percentageon 2021 Bilirubin [Mass/Vol] 0.90 mg/dL 0.20-1.00 [facility] Work Phone: Comment on above: For patients on eltr ombopag therapy, use of Dimension [place] TBIL is not recommended. Chloride [Moles/Vol] 104 mmol/L 98-107 [facility] Work Phone: Glucose [Mass/Vol] 147 mg/dL 74-106 [facility] Work Phone: Comment on above: Fasting Glucose resu lt greater than or equal to 126 mg/dL suggests DIABETES MELLITUS per A.D.A. criteria. Potassium [Moles/Vol] 4.6 mmol/L 3.5-5.1 [facility] Work Phone: Protein [Mass/Vol] 8.2 g/dL 6.4-8.2 [facility] Work Phone: Sodium [Moles/Vol] 137 mmol/L 136-145 [facility] Work Phone: WBC (Bld) [#/Vol] 9.1 10*3/uL 4.4-11.0 [facility] Work Phone: Blood erythrocytes count (nu mber/volume)on 07-09-2022 RBC (Bld) [#/Vol] 3.47 10*6/uL 4.6-6.2 [facility] Work Phone: Blood hemoglobin measurement (mass/volume)on 07-09-2022 Hemoglobin (Bld) [Mass/Vol] 10.8 g/dL 13.0-16.5 [facility] Work Phone: Blood platelet mean volumeon 07-09-2022 Platelet mean volume (Bld) [Entitic vol] 11.0 fL 6.2-12.0 [facility] Work Phone: Determination of erythrocyte mean corpuscular volume (MCV)on 07-09-2022 MCV (RBC) [Entitic vol] 98.8 fL 80-94 [facility] Work Phone: Hematocrit Auto (Bld) [Volum e fraction]on 07-09-2022 Hematocrit (Bld) [Volume fraction] 34.3 % 40-54 [facility] Work Phone: INR in Blood by Coagulation assayon 07-09-2022 INR Coag (Bld) [Relative time] 2.7 {INR} [facility] Work Phone: Laboratory - Chemistry and C hemistry - challengeon 07-09-2022 ALP [Catalytic activity/Vol] 145 U/L 45-117 [facility] Work Phone: ALT [Catalytic activity/Vol] 19 U/L 16-61 [facility] Work Phone: [phone] CO2 [Moles/Vol] 29.0 mmol/L 21.0-32.0 [facility] Work Phone: [phone] Globulin (S) [Mass/Vol] 5.2 g/dL 2.2-4.2 [facility] Work Phone: [phone] Natriuretic peptide B (Bld) [Mass/Vol] 265.9 pg/mL 0-100 [facility] Work Phone: [phone] Urea nitrogen/Creatinine [Mass ratio] 26.0 mg/mg 10-20 [facility] Work Phone: [phone] Laboratory - Coagulationon 0 07-09-2022 PT Coag (PPP) [Time] 28.2 s 11.7-14.9 [facility] Work Phone: [phone] Laboratory - Hematology and Cell countson 07-09-2022 Erythrocyte distribution width (RBC) [Entitic vol] 51.2 fL 35.1-43.9 [facility] Work Phone: [phone] Erythrocyte distribution width (RBC) [Ratio] 14.2 % 11.6-14.6 [facility] Work Phone: [phone] MCH (RBC) [Entitic mass] 31.1 pg 27.0-32.0 [facility] Work Phone: [phone] MCHC Auto (RBC) [Mass/Vol]on 07-09-2022 MCHC (RBC) [Mass/Vol] 31.5 g/dL 32-36 [facility] Work Phone: No Panel Informationon 07-09 Estimated GFR (MDRD) Amer 32 mL/min >60 [facility] Work Phone: Comment on above: GFR Calc Estimated GFR (MDRD) Non-Af Amer 27 mL/min >60 [facility] Work Phone: Comment on above: Non- GFR Calc Platelets bldon 07-09-2022 Platelets (Bld) [#/Vol] 148 10*3/uL 150-450 [facility] Work Phone: Serum or plasma albumin aubree urement (mass/volume)on 07-09-2022 Albumin [Mass/Vol] 3.0 g/dL 3.2-5.0 [facility] Work Phone: [phone] Serum or plasma albumin/glob ulin mass ratioon 07-09-2022 Albumin/Globulin [Mass ratio] 0.6 {ratio} 0.9-2.4 [facility] Work Phone: Serum or plasma calcium aubree urement (mass/volume)on 07-09-2022 Calcium [Mass/Vol] 9.0 mg/dL 8.5-10.1 [facility] Work Phone: Serum or plasma creatinine m easurement (mass/volume)on 07-09-2022 Creatinine [Mass/Vol] 2.50 mg/dL 0.70-1.30 [facility] Work Phone: Comment on above: The validity of the calculated GFR & GFRAA in patients over 70 years has not been determined. Clinical correlation is essential. Serum or plasma urea nitroge n measurement (mass/volume)on 07-09-2022 Urea nitrogen [Mass/Vol] 65 mg/dL 7-18 [facility] Work Phone: [phone] Thin prep Papanicolaou smear with manual screeningon 07-09-2022 Thin prep Papanicolaou smear with manual screening 24 U/L 15-37 [facility] Work Phone: [phone] Thin prep Papanicolaou smear with manual screening 4 5-15 [facility] Work Phone: Basophil percentageon 2021 Bilirubin [Mass/Vol] 0.60 mg/dL 0.20-1.00 [facility] Work Phone: Comment on above: For patients on eltr ombopag therapy, use of Dimension [place] TBIL is not recommended. Chloride [Moles/Vol] 105 mmol/L 98-107 [facility] Work Phone: Cholesterol [Mass/Vol] 92 mg/dL <200 [facility] Work Phone: [phone] Comment on above: <200 mg/dL Desirable 200-240 mg/dL Borderline >240 mg/dL High Risk Glucose [Mass/Vol] 114 mg/dL 74-106 [facility] Work Phone: [phone] Comment on above: Fasting Glucose resu lt from 100 to 125 mg/dL suggests IMPAIRED HOMEOSTASIS per A.D.A. criteria. Potassium [Moles/Vol] 4.5 mmol/L 3.5-5.1 [facility] Work Phone: Protein [Mass/Vol] 8.0 g/dL 6.4-8.2 [facility] Work Phone: Sodium [Moles/Vol] 139 mmol/L 136-145 [facility] Work Phone: [phone] Triglyceride [Mass/Vol] 114 mg/dL <199 [facility] Work Phone: [phone] Comment on above: The drugs N-Acetylcy steine and Metamizole may falsely depress this assay.Serum Triglycerides Reference Interval Normal <150 mg/dL Borderline high 150 - 199 mg/dL High 200 - 499 mg/dL Very High > or = 500 mg/dL INR in Blood by Coagulation assayon 06-18-2022 INR Coag (Bld) [Relative time] 2.8 {INR} [facility] Work Phone: [phone] Laboratory - Chemistry and C hemistry - challengeon 06-18-2022 ALP [Catalytic activity/Vol] 132 U/L 45-117 [facility] Work Phone: [phone] ALT [Catalytic activity/Vol] 19 U/L 16-61 [facility] Work Phone: [phone] CO2 [Moles/Vol] 30.0 mmol/L 21.0-32.0 [facility] Work Phone: [phone] Free T4 [Mass/Vol] 0.80 ng/dL 0.76-1.46 [facility] Work Phone: [phone] Globulin (S) [Mass/Vol] 5.0 g/dL 2.2-4.2 [facility] Work Phone: [phone] Urea nitrogen/Creatinine [Mass ratio] 19.9 mg/mg 10-20 [facility] Work Phone: Laboratory - Coagulationon 0 06-18-2022 PT Coag (PPP) [Time] 29.3 s 11.7-14.9 [facility] Work Phone: No Panel Informationon 06-18 Estimated GFR (MDRD) Amer 29 mL/min >60 [facility] Work Phone: Comment on above: GFR Calc Estimated GFR (MDRD) Non-Af Amer 24 mL/min >60 [facility] Work Phone: Comment on above: Non- GFR Calc Hepatitis C Antibody Non-Reactive Nonreactive [facility] Work Phone: Comment on above: Non Reactive: < 0.8 Equivocal: >/= 0.8 to < 1.0 Reactive: >/= 1.0The CDC recommends that a reactive/equivocal HCV antibody result be followed up by the HCV Nucleic Acid Amplificationtest (612057) Thyroid Stimulating Hormone (TSH) 5.65 uIU/mL 0.358-3.74 [facility] Work Phone: [phone] Urine Microalbumin/Creatinine Ratio 173.8 mg/g CRE <30 [facility] Work Phone: [phone] Vitamin D 25-Hydroxy 48.5 ng/mL [facility] Work Phone: Comment on above: Vitamin D 25(OH) Sta tus Range Deficiency <20 ng/mL (50nmol/L) Insufficiency 20 - 30 ng/mL (50 - 75 nmol/L) Sufficiency 30 - 100 ng/mL (75 - 250 nmol/L) Toxicity >100 ng/mL (>250 nmol/L) Serum or plasma albumin aubree urement (mass/volume)on 06-18-2022 Albumin [Mass/Vol] 3.0 g/dL 3.2-5.0 [facility] Work Phone: Serum or plasma albumin/glob ulin mass ratioon 06-18-2022 Albumin/Globulin [Mass ratio] 0.6 {ratio} 0.9-2.4 [facility] Work Phone: Serum or plasma calcium aubree urement (mass/volume)on 06-18-2022 Calcium [Mass/Vol] 9.3 mg/dL 8.5-10.1 [facility] Work Phone: Serum or plasma cholesterol in HDL measurement (mass/volume)on 06-18-2022 Cholesterol in HDL [Mass/Vol] 31 mg/dL >40 [facility] Work Phone: Comment on above: The drugs N-Acetylcy steine and Metamizole may falsely depress this assay. Reference Range HDL <40 mg/dL Low HDL Cholesterol HDL >or= 60 mg/dL High HDL Cholesterol Serum or plasma cholesterol in VLDL measurement (mass/volume)on 06-18-2022 Cholesterol in VLDL [Mass/Vol] 23 mg/dL 5-40 [facility] Work Phone: Serum or plasma creatinine m easurement (mass/volume)on 06-18-2022 Creatinine [Mass/Vol] 2.76 mg/dL 0.70-1.30 [facility] Work Phone: Comment on above: The validity of the calculated GFR & GFRAA in patients over 70 years has not been determined. Clinical correlation is essential. Serum or plasma low density lipoprotein (LDL) cholesterol measurement (mass/volume)on 06-18-2022 Cholesterol in LDL [Mass/Vol] 38 mg/dL 0-130 [facility] Work Phone: [phone] Serum or plasma urea nitroge n measurement (mass/volume)on 06-18-2022 Urea nitrogen [Mass/Vol] 55 mg/dL 7-18 [facility] Work Phone: [phone] Thin prep Papanicolaou smear with manual screeningon 06-18-2022 Thin prep Papanicolaou smear with manual screening 19 U/L 15-37 [facility] Work Phone: Thin prep Papanicolaou smear with manual screening 4 5-15 [facility] Work Phone: Thin prep Papanicolaou smear with manual screening 285.0 mg/L NO RANGE EST. [facility] Work Phone: Urine creatinine measurement (mass/volume)on 06-18-2022 Creatinine (U) [Mass/Vol] 164.00 mg/dL NO RANGE EST. [facility] Work Phone: Absolute lymphocyte counton 06-14-2022 Lymphocytes Auto (Unsp spec) [#/Vol] 1.51 10*3/uL 0.83-4.51 [facility] Work Phone: Basophil percentageon 2021 Basophil percentage 2.6 mg/dL 2.5-4.9 [facility] Work Phone: Basophils/100 WBC (Bld) 0.3 % 0-1 [facility] Work Phone: Chloride [Moles/Vol] 104 mmol/L 98-107 [facility] Work Phone: Eosinophils/100 WBC (Bld) 2.6 % 0-5 [facility] Work Phone: Glucose [Mass/Vol] 195 mg/dL 74-106 [facility] Work Phone: Comment on above: Fasting Glucose resu lt greater than or equal to 126 mg/dL suggests DIABETES MELLITUS per A.D.A. criteria. Neutrophils (Bld) [#/Vol] 6.3 10*3/uL 2.0-7.7 [facility] Work Phone: Neutrophils/100 WBC (Bld) 72.7 % 47-70 [facility] Work Phone: Potassium [Moles/Vol] 4.2 mmol/L 3.5-5.1 [facility] Work Phone: Sodium [Moles/Vol] 141 mmol/L 136-145 [facility] Work Phone: WBC (Bld) [#/Vol] 8.7 10*3/uL 4.4-11.0 [facility] Work Phone: Blood erythrocytes count (nu mber/volume)on 06-14-2022 RBC (Bld) [#/Vol] 3.50 10*6/uL 4.6-6.2 [facility] Work Phone: Blood hemoglobin measurement (mass/volume)on 06-14-2022 Hemoglobin (Bld) [Mass/Vol] 10.9 g/dL 13.0-16.5 [facility] Work Phone: Blood lymphocytes/100 leukoc yteson 06-14-2022 Lymphocytes/100 WBC (Bld) 17.4 % 19-41 [facility] Work Phone: [phone] Blood monocytes/100 leukocyt eson 06-14-2022 Monocytes/100 WBC (Bld) 6.4 % 0-10 [facility] Work Phone: Blood platelet mean volumeon 06-14-2022 Platelet mean volume (Bld) [Entitic vol] 10.3 fL 6.2-12.0 [facility] Work Phone: Determination of erythrocyte mean corpuscular volume (MCV)on 06-14-2022 MCV (RBC) [Entitic vol] 100.0 fL 80-94 [facility] Work Phone: Hematocrit Auto (Bld) [Volum e fraction]on 06-14-2022 Hematocrit (Bld) [Volume fraction] 35.0 % 40-54 [facility] Work Phone: Iron measurement (mass/mass) on 06-14-2022 Iron (Unsp spec) [Mass/Mass] 62 ug/dL 65-175 [facility] Work Phone: Laboratory - Chemistry and C hemistry - challengeon 06-14-2022 CO2 [Moles/Vol] 31.0 mmol/L 21.0-32.0 [facility] Work Phone: Urea nitrogen/Creatinine [Mass ratio] 22.4 mg/mg 10-20 [facility] Work Phone: Laboratory - Hematology and Cell countson 06-14-2022 Erythrocyte distribution width (RBC) [Entitic vol] 50.7 fL 35.1-43.9 [facility] Work Phone: [phone] Erythrocyte distribution width (RBC) [Ratio] 14.1 % 11.6-14.6 [facility] Work Phone: [phone] Immature granulocytes/100 WBC (Bld) 0.600 % 0.0-0.9 [facility] Work Phone: [phone] Comment on above: IG% - Immature Granu locytes (promyelocytes, myelocytes and metamyelocytes) > 1% indicates that a LEFT SHIFT is Present. MCH (RBC) [Entitic mass] 31.1 pg 27.0-32.0 [facility] Work Phone: [phone] Nucleated RBC/100 WBC (Bld) [Ratio] 0 % 0-5 [facility] Work Phone: [phone] MCHC Auto (RBC) [Mass/Vol]on 06-14-2022 MCHC (RBC) [Mass/Vol] 31.1 g/dL 32-36 [facility] Work Phone: No Panel Informationon 06-14 Estimated Creatinine Clearance Calc 19.46 ml/min [facility] Work Phone: Estimated GFR (MDRD) Amer 31 mL/min >60 [facility] Work Phone: [phone] Comment on above: GFR Calc Estimated GFR (MDRD) Non-Af Amer 25 mL/min >60 [facility] Work Phone: Comment on above: Non- GFR Calc Parathyroid Hormone (Intact) 39.9 pg/mL 18.4-80.1 [facility] Work Phone: Total Iron Binding Capacity 252 ug/dL 250-450 [facility] Work Phone: [phone] Platelets bldon 06-14-2022 Platelets (Bld) [#/Vol] 139 10*3/uL 150-450 [facility] Work Phone: Serum or plasma albumin aubree urement (mass/volume)on 06-14-2022 Albumin [Mass/Vol] 3.0 g/dL 3.2-5.0 [facility] Work Phone: Serum or plasma calcium aubree urement (mass/volume)on 06-14-2022 Calcium [Mass/Vol] 9.2 mg/dL 8.5-10.1 [facility] Work Phone: [phone] Serum or plasma creatinine m easurement (mass/volume)on 06-14-2022 Creatinine [Mass/Vol] 2.59 mg/dL 0.70-1.30 [facility] Work Phone: Comment on above: The validity of the calculated GFR & GFRAA in patients over 70 years has not been determined. Clinical correlation is essential. Serum or plasma ferritin laurie surement (mass/volume)on 06-14-2022 Ferritin [Mass/Vol] 210 ng/mL 26-388 [facility] Work Phone: Serum or plasma iron saturat ion measurement (mass fraction)on 06-14-2022 Iron saturation [Mass fraction] 24.6 % 15.0-55.0 [facility] Work Phone: Serum or plasma urea nitroge n measurement (mass/volume)on 06-14-2022 Urea nitrogen [Mass/Vol] 58 mg/dL 18 [facility] Work Phone: [phone] Basophil percentageon 2021 Bilirubin [Mass/Vol] 0.80 mg/dL 0.20-1.00 [facility] Work Phone: [phone] Comment on above: For patients on eltr ombopag therapy, use of Dimension [place] TBIL is not recommended. Chloride [Moles/Vol] 103 mmol/L 98-107 [facility] Work Phone: [phone] Cholesterol [Mass/Vol] 104 mg/dL <200 [facility] Work Phone: [phone] Comment on above: <200 mg/dL Desirable 200-240 mg/dL Borderline >240 mg/dL High Risk Glucose [Mass/Vol] 115 mg/dL 74-106 [facility] Work Phone: [phone] Comment on above: Fasting Glucose resu lt from 100 to 125 mg/dL suggests IMPAIRED HOMEOSTASIS per A.D.A. criteria. Potassium [Moles/Vol] 4.2 mmol/L 3.5-5.1 [facility] Work Phone: [phone] Protein [Mass/Vol] 8.4 g/dL 6.4-8.2 [facility] Work Phone: [phone] Sodium [Moles/Vol] 140 mmol/L 136-145 [facility] Work Phone: [phone] Triglyceride [Mass/Vol] 86 mg/dL <199 [facility] Work Phone: [phone] Comment on above: The drugs N-Acetylcy steine and Metamizole may falsely depress this assay.Serum Triglycerides Reference Interval Normal <150 mg/dL Borderline high 150 - 199 mg/dL High 200 - 499 mg/dL Very High > or = 500 mg/dL WBC (Bld) [#/Vol] 12.5 10*3/uL 4.4-11.0 [facility] Work Phone: [phone] Blood erythrocytes count (nu mber/volume)on 05-18-2022 RBC (Bld) [#/Vol] 3.47 10*6/uL 4.6-6.2 [facility] Work Phone: [phone] Blood hemoglobin measurement (mass/volume)on 05-18-2022 Hemoglobin (Bld) [Mass/Vol] 11.0 g/dL 13.0-16.5 [facility] Work Phone: [phone] Blood platelet mean volumeon 05-18-2022 Platelet mean volume (Bld) [Entitic vol] 10.7 fL 6.2-12.0 [facility] Work Phone: [phone] Determination of erythrocyte mean corpuscular volume (MCV)on 05-18-2022 MCV (RBC) [Entitic vol] 99.7 fL 80-94 [facility] Work Phone: [phone] Hematocrit Auto (Bld) [Volum e fraction]on 05-18-2022 Hematocrit (Bld) [Volume fraction] 34.6 % 40-54 [facility] Work Phone: [phone] Laboratory - Chemistry and C hemistry - challengeon 05-18-2022 ALP [Catalytic activity/Vol] 140 U/L 45-117 [facility] Work Phone: [phone] ALT [Catalytic activity/Vol] 23 U/L 16-61 [facility] Work Phone: [phone] CO2 [Moles/Vol] 29.0 mmol/L 21.0-32.0 [facility] Work Phone: [phone] Globulin (S) [Mass/Vol] 5.5 g/dL 2.2-4.2 [facility] Work Phone: [phone] Urea nitrogen/Creatinine [Mass ratio] 23.7 mg/mg 10-20 [facility] Work Phone: [phone] Laboratory - Hematology and Cell countson 05-18-2022 Erythrocyte distribution width (RBC) [Entitic vol] 51.8 fL 35.1-43.9 [facility] Work Phone: [phone] Erythrocyte distribution width (RBC) [Ratio] 14.3 % 11.6-14.6 [facility] Work Phone: [phone] MCH (RBC) [Entitic mass] 31.7 pg 27.0-32.0 [facility] Work Phone: [phone] MCHC Auto (RBC) [Mass/Vol]on 05-18-2022 MCHC (RBC) [Mass/Vol] 31.8 g/dL 32-36 [facility] Work Phone: No Panel Informationon 05-18 Estimated GFR (MDRD) Amer 29 mL/min >60 [facility] Work Phone: [phone] Comment on above: GFR Calc Estimated GFR (MDRD) Non-Af Amer 24 mL/min >60 [facility] Work Phone: [phone] Comment on above: Non- GFR Calc Thyroid Stimulating Hormone (TSH) 5.11 uIU/mL 0.358-3.74 [facility] Work Phone: Platelets bldon 05-18-2022 Platelets (Bld) [#/Vol] 169 10*3/uL 150-450 [facility] Work Phone: Serum or plasma albumin aubree urement (mass/volume)on 05-18-2022 Albumin [Mass/Vol] 2.9 g/dL 3.2-5.0 [facility] Work Phone: [phone] Serum or plasma albumin/glob ulin mass ratioon 05-18-2022 Albumin/Globulin [Mass ratio] 0.5 {ratio} 0.9-2.4 [facility] Work Phone: Serum or plasma calcium aubree urement (mass/volume)on 05-18-2022 Calcium [Mass/Vol] 9.5 mg/dL 8.5-10.1 [facility] Work Phone: Serum or plasma cholesterol in HDL measurement (mass/volume)on 05-18-2022 Cholesterol in HDL [Mass/Vol] 37 mg/dL >40 [facility] Work Phone: Comment on above: The drugs N-Acetylcy steine and Metamizole may falsely depress this assay. Reference Range HDL <40 mg/dL Low HDL Cholesterol HDL >or= 60 mg/dL High HDL Cholesterol Serum or plasma cholesterol in VLDL measurement (mass/volume)on 05-18-2022 Cholesterol in VLDL [Mass/Vol] 17 mg/dL 5-40 [facility] Work Phone: [phone] Serum or plasma creatinine m easurement (mass/volume)on 05-18-2022 Creatinine [Mass/Vol] 2.74 mg/dL 0.70-1.30 [facility] Work Phone: Comment on above: The validity of the calculated GFR & GFRAA in patients over 70 years has not been determined. Clinical correlation is essential. Serum or plasma low density lipoprotein (LDL) cholesterol measurement (mass/volume)on 05-18-2022 Cholesterol in LDL [Mass/Vol] 50 mg/dL 0-130 [facility] Work Phone: Serum or plasma urea nitroge n measurement (mass/volume)on 05-18-2022 Urea nitrogen [Mass/Vol] 65 mg/dL 7-18 [facility] Work Phone: Thin prep Papanicolaou smear with manual screeningon 05-18-2022 Thin prep Papanicolaou smear with manual screening 18 U/L 15-37 [facility] Work Phone: Thin prep Papanicolaou smear with manual screening 8 5-15 [facility] Work Phone: [phone] Whole blood hemoglobin A1c/t otal hemoglobin ratio (mass fraction)on 05-18-2022 HbA1c (Bld) [Mass fraction] 6.3 % 3.8-5.6 [facility] Work Phone: [phone] Comment on above: Normal < 5.7 % Predi abetic 5.7 - 6.4 % Diabetic >or= 6.5 % Please note range changes. Absolute lymphocyte counton 05-17-2022 Lymphocytes Auto (Unsp spec) [#/Vol] 1.53 10*3/uL 0.83-4.51 [facility] Work Phone: Basophil percentageon 2021 Basophil percentage 3.5 mg/dL 2.5-4.9 [facility] Work Phone: Basophils/100 WBC (Bld) 0.3 % 0-1 [facility] Work Phone: Chloride [Moles/Vol] 104 mmol/L 98-107 [facility]: Eosinophils/100 WBC (Bld) 1.8 % 0-5 [facility] Work Phone: Glucose [Mass/Vol] 302 mg/dL 74-106 [facility] Work Phone: Comment on above: Glucose result great er than or equal to 200 mg/dLsuggests DIABETES MELLITUS per A.D.A. criteria. Neutrophils (Bld) [#/Vol] 12.1 10*3/uL 2.0-7.7 [facility] Work Phone: Neutrophils/100 WBC (Bld) 81.8 % 47-70 [facility] Work Phone: Potassium [Moles/Vol] 4.4 mmol/L 3.5-5.1 [facility] Work Phone: Sodium [Moles/Vol] 138 mmol/L 136-145 [facility] Work [facility]: WBC (Bld) [#/Vol] 14.8 10*3/uL 4.4-11.0 [facility] Work Phone: Blood erythrocytes count (nu mber/volume)on 05-17-2022 RBC (Bld) [#/Vol] 3.49 10*6/uL 4.6-6.2 [facility] Work Phone: Blood hemoglobin measurement (mass/volume)on 05-17-2022 Hemoglobin (Bld) [Mass/Vol] 11.1 g/dL 13.0-16.5 [facility] Work Phone: [phone] Blood lymphocytes/100 leukoc yteson 05-17-2022 Lymphocytes/100 WBC (Bld) 10.3 % 19-41 [facility] Work Phone: [phone] Blood monocytes/100 leukocyt eson 05-17-2022 Monocytes/100 WBC (Bld) 5.1 % 0-10 [facility] Work Phone: [phone] Blood platelet mean volumeon 05-17-2022 Platelet mean volume (Bld) [Entitic vol] 10.1 fL 6.2-12.0 [facility] Work Phone: Determination of erythrocyte mean corpuscular volume (MCV)on 05-17-2022 MCV (RBC) [Entitic vol] 99.7 fL 80-94 [facility] Work Phone: Hematocrit Auto (Bld) [Volum e fraction]on 05-17-2022 Hematocrit (Bld) [Volume fraction] 34.8 % 40-54 [facility] Work Phone: Iron measurement (mass/mass) on 05-17-2022 Iron (Unsp spec) [Mass/Mass] 49 ug/dL 65-175 [facility] Work Phone: Laboratory - Chemistry and C hemistry - challengeon 05-17-2022 CO2 [Moles/Vol] 30.0 mmol/L 21.0-32.0 [facility] Work Phone: Urea nitrogen/Creatinine [Mass ratio] 23.1 mg/mg 10-20 [facility] Work Phone: [phone] Laboratory - Hematology and Cell countson 05-17-2022 Erythrocyte distribution width (RBC) [Entitic vol] 51.1 fL 35.1-43.9 [facility] Work Phone: [phone] Erythrocyte distribution width (RBC) [Ratio] 14.2 % 11.6-14.6 [facility] Work Phone: Immature granulocytes/100 WBC (Bld) 0.700 % 0.0-0.9 [facility] Work Phone: Comment on above: IG% - Immature Granu locytes (promyelocytes, myelocytes and metamyelocytes) > 1% indicates that a LEFT SHIFT is Present. MCH (RBC) [Entitic mass] 31.8 pg 27.0-32.0 [facility] Work Phone: Nucleated RBC/100 WBC (Bld) [Ratio] 0 % 0-5 [facility] Work Phone: MCHC Auto (RBC) [Mass/Vol]on 05-17-2022 MCHC (RBC) [Mass/Vol] 31.9 g/dL 32-36 [facility] Work Phone: No Panel Informationon 05-17 Estimated GFR (MDRD) Amer 29 mL/min >60 [facility] Work Phone: Comment on above: GFR Calc Estimated GFR (MDRD) Non-Af Amer 24 mL/min >60 [facility] Work Phone: Comment on above: Non- GFR Calc Total Iron Binding Capacity 232 ug/dL 250-450 [facility] Work Phone: Platelets bldon 05-17-2022 Platelets (Bld) [#/Vol] 156 10*3/uL 150-450 [facility] Work Phone: [phone] Serum or plasma albumin aubree urement (mass/volume)on 05-17-2022 Albumin [Mass/Vol] 3.0 g/dL 3.2-5.0 [facility] Work Phone: [phone] Serum or plasma calcium aubree urement (mass/volume)on 05-17-2022 Calcium [Mass/Vol] 9.8 mg/dL 8.5-10.1 [facility] Work Phone: [phone] Serum or plasma creatinine m easurement (mass/volume)on 05-17-2022 Creatinine [Mass/Vol] 2.77 mg/dL 0.70-1.30 [facility] Work Phone: [phone] Comment on above: The validity of the calculated GFR & GFRAA in patients over 70 years has not been determined. Clinical correlation is essential. Serum or plasma ferritin laurie surement (mass/volume)on 05-17-2022 Ferritin [Mass/Vol] 307 ng/mL 26-388 [facility] Work Phone: [phone] Serum or plasma iron saturat ion measurement (mass fraction)on 05-17-2022 Iron saturation [Mass fraction] 21.1 % 15.0-55.0 [facility] Work Phone: [phone] Serum or plasma urea nitroge n measurement (mass/volume)on 05-17-2022 Urea nitrogen [Mass/Vol] 64 mg/dL 7-18 [facility] Work Phone: [phone] Absolute lymphocyte counton 04-12-2022 Lymphocytes Auto (Unsp spec) [#/Vol] 1.61 10*3/uL 0.83-4.51 [facility] Work Phone: [phone] Basophil percentageon 2021 Basophil percentage 3.2 mg/dL 2.5-4.9 [facility] Work Phone: [phone] Basophils/100 WBC (Bld) 0.3 % 0-1 [facility] Work Phone: Chloride [Moles/Vol] 100 mmol/L 98-107 [facility] Work Phone: Eosinophils/100 WBC (Bld) 1.8 % 0-5 [facility] Work Phone: Glucose [Mass/Vol] 166 mg/dL 74-106 [facility] Work Phone: Comment on above: Fasting Glucose resu lt greater than or equal to 126 mg/dL suggests DIABETES MELLITUS per A.D.A. criteria. Neutrophils (Bld) [#/Vol] 8.3 10*3/uL 2.0-7.7 [facility] Work Phone: Neutrophils/100 WBC (Bld) 75.8 % 47-70 [facility] Work Phone: Potassium [Moles/Vol] 4.5 mmol/L 3.5-5.1 [facility] Work Phone: Sodium [Moles/Vol] 137 mmol/L 136-145 [facility] Work Phone: WBC (Bld) [#/Vol] 11.0 10*3/uL 4.4-11.0 [facility] Work Phone: Blood erythrocytes count (nu mber/volume)on 04-12-2022 RBC (Bld) [#/Vol] 3.44 10*6/uL 4.6-6.2 [facility] Work Phone: Blood hemoglobin measurement (mass/volume)on 04-12-2022 Hemoglobin (Bld) [Mass/Vol] 11.1 g/dL 13.0-16.5 [facility] Work Phone: Blood lymphocytes/100 leukoc yteson 04-12-2022 Lymphocytes/100 WBC (Bld) 14.7 % 19-41 [facility] Work Phone: Blood monocytes/100 leukocyt eson 04-12-2022 Monocytes/100 WBC (Bld) 6.9 % 0-10 [facility] Work Phone: [phone] Blood platelet mean volumeon 04-12-2022 Platelet mean volume (Bld) [Entitic vol] 9.4 fL 6.2-12.0 [facility] Work Phone: [phone] Determination of erythrocyte mean corpuscular volume (MCV)on 04-12-2022 MCV (RBC) [Entitic vol] 98.8 fL 80-94 [facility] Work Phone: [phone] Hematocrit Auto (Bld) [Volum e fraction]on 04-12-2022 Hematocrit (Bld) [Volume fraction] 34.0 % 40-54 [facility] Work Phone: [phone] Iron measurement (mass/mass) on 04-12-2022 Iron (Unsp spec) [Mass/Mass] 65 ug/dL 65-175 [facility] Work Phone: [phone] Laboratory - Chemistry and C hemistry - challengeon 04-12-2022 CO2 [Moles/Vol] 31.0 mmol/L 21.0-32.0 [facility] Work Phone: [phone] Urea nitrogen/Creatinine [Mass ratio] 24.7 mg/mg 10-20 [facility] Work Phone: [phone] Laboratory - Hematology and Cell countson 04-12-2022 Erythrocyte distribution width (RBC) [Entitic vol] 51.0 fL 35.1-43.9 [facility] Work Phone: [phone] Erythrocyte distribution width (RBC) [Ratio] 14.2 % 11.6-14.6 [facility] Work Phone: [phone] Immature granulocytes/100 WBC (Bld) 0.500 % 0.0-0.9 [facility] Work Phone: [phone] Comment on above: IG% - Immature Granu locytes (promyelocytes, myelocytes and metamyelocytes) > 1% indicates that a LEFT SHIFT is Present. MCH (RBC) [Entitic mass] 32.3 pg 27.0-32.0 [facility] Work Phone: Nucleated RBC/100 WBC (Bld) [Ratio] 0 % 0-5 [facility] Work Phone: MCHC Auto (RBC) [Mass/Vol]on 04-12-2022 MCHC (RBC) [Mass/Vol] 32.6 g/dL 32-36 [facility] Work Phone: No Panel Informationon 04-12 Estimated GFR (MDRD) Amer 32 mL/min >60 [facility] Work Phone: Comment on above: GFR Calc Estimated GFR (MDRD) Non-Af Amer 26 mL/min >60 [facility] Work Phone: Comment on above: Non- GFR Calc Total Iron Binding Capacity 228 ug/dL 250-450 [facility] Work Phone: Platelets bldon 04-12-2022 Platelets (Bld) [#/Vol] 140 10*3/uL 150-450 [facility] Work Phone: Serum or plasma albumin aubree urement (mass/volume)on 04-12-2022 Albumin [Mass/Vol] 3.0 g/dL 3.2-5.0 [facility] Work Phone: Serum or plasma calcium aubree urement (mass/volume)on 04-12-2022 Calcium [Mass/Vol] 9.0 mg/dL 8.5-10.1 [facility] Work Phone: Serum or plasma creatinine m easurement (mass/volume)on 04-12-2022 Creatinine [Mass/Vol] 2.51 mg/dL 0.70-1.30 [facility] Work Phone: Comment on above: The validity of the calculated GFR & GFRAA in patients over 70 years has not been determined. Clinical correlation is essential. Serum or plasma ferritin laurie surement (mass/volume)on 04-12-2022 Ferritin [Mass/Vol] 250 ng/mL 26-388 [facility] Work Phone: Serum or plasma iron saturat ion measurement (mass fraction)on 04-12-2022 Iron saturation [Mass fraction] 28.5 % 15.0-55.0 [facility] Work Phone: Serum or plasma urea nitroge n measurement (mass/volume)on 04-12-2022 Urea nitrogen [Mass/Vol] 62 mg/dL 7-18 [facility] Work [phone] Absolute lymphocyte counton 03-29-2022 Lymphocytes Auto (Unsp spec) [#/Vol] 1.98 10*3/uL 0.83-4.51 [facility] Work Phone: Basophil percentageon 2021 Basophil percentage 2.5 mg/dL 2.5-4.9 [facility] Work Phone: Basophils/100 WBC (Bld) 0.6 % 0-1 [facility] Work Phone: Chloride [Moles/Vol] 109 mmol/L 98-107 [facility] Work Phone: Eosinophils/100 WBC (Bld) 2.8 % 0-5 [facility] Work Phone: Glucose [Mass/Vol] 121 mg/dL 74-106 [facility] Work Phone: Comment on above: Fasting Glucose resu lt from 100 to 125 mg/dL suggests IMPAIRED HOMEOSTASIS per A.D.A. criteria. Neutrophils (Bld) [#/Vol] 6.7 10*3/uL 2.0-7.7 [facility] Work Phone: Neutrophils/100 WBC (Bld) 68.7 % 47-70 [facility] Work Phone: Potassium [Moles/Vol] 4.4 mmol/L 3.5-5.1 [facility] Work Phone: Sodium [Moles/Vol] 140 mmol/L 136-145 [facility] Work Phone: WBC (Bld) [#/Vol] 9.8 10*3/uL 4.4-11.0 [facility] Work Phone: Blood erythrocytes count (nu mber/volume)on 05-02-2022 RBC (Bld) [#/Vol] 3.33 10*6/uL 4.6-6.2 [facility] Work Phone: Blood hemoglobin measurement (mass/volume)on 03-29-2022 Hemoglobin (Bld) [Mass/Vol] 10.5 g/dL 13.0-16.5 [facility] Work Phone: Blood lymphocytes/100 leukoc yteson 03-29-2022 Lymphocytes/100 WBC (Bld) 20.2 % 19-41 [facility] Work Phone: Blood monocytes/100 leukocyt eson 03-29-2022 Monocytes/100 WBC (Bld) 6.7 % 0-10 [facility] Work Phone: Blood platelet mean volumeon 03-29-2022 Platelet mean volume (Bld) [Entitic vol] 10.8 fL 6.2-12.0 [facility] Work Phone: Determination of erythrocyte mean corpuscular volume (MCV)on 03-29-2022 MCV (RBC) [Entitic vol] 100.3 fL 80-94 [facility] Work Phone: Hematocrit Auto (Bld) [Volum e fraction]on 03-29-2022 Hematocrit (Bld) [Volume fraction] 33.4 % 40-54 [facility] Work Phone: Iron measurement (mass/mass) on 03-29-2022 Iron (Unsp spec) [Mass/Mass] 71 ug/dL 65-175 [facility] Work Phone: Laboratory - Chemistry and C hemistry - challengeon 03-29-2022 CO2 [Moles/Vol] 25.0 mmol/L 21.0-32.0 [facility] Work Phone: Urea nitrogen/Creatinine [Mass ratio] 27.5 mg/mg 10-20 [facility] Work Phone: Laboratory - Hematology and Cell countson 03-29-2022 Erythrocyte distribution width (RBC) [Entitic vol] 55.0 fL 35.1-43.9 [facility] Work Phone: [phone] Erythrocyte distribution width (RBC) [Ratio] 15.1 % 11.6-14.6 [facility] Work Phone: [phone] Immature granulocytes/100 WBC (Bld) 1.000 % 0.0-0.9 [facility] Work Phone: [phone] Comment on above: IG% - Immature Granu locytes (promyelocytes, myelocytes and metamyelocytes) > 1% indicates that a LEFT SHIFT is Present. MCH (RBC) [Entitic mass] 31.5 pg 27.0-32.0 [facility] Work Phone: Nucleated RBC/100 WBC (Bld) [Ratio] 0 % 0-5 [facility] Work Phone: [phone] MCHC Auto (RBC) [Mass/Vol]on 03-29-2022 MCHC (RBC) [Mass/Vol] 31.4 g/dL 32-36 [facility] Work Phone: No Panel Informationon 03-29 Estimated GFR (MDRD) Amer 37 mL/min >60 [facility] Work Phone: [phone] Comment on above: GFR Calc Estimated GFR (MDRD) Non-Af Amer 30 mL/min >60 [facility] Work Phone: Comment on above: Non- GFR Calc Parathyroid Hormone (Intact) 143.9 pg/mL 18.4-80.1 [facility] Work Phone: [phone] Total Iron Binding Capacity 242 ug/dL 250-450 [facility] Work Phone: Platelets bldon 03-29-2022 Platelets (Bld) [#/Vol] 164 10*3/uL 150-450 [facility] Work Phone: [phone] Serum or plasma albumin aubree urement (mass/volume)on 03-29-2022 Albumin [Mass/Vol] 3.0 g/dL 3.2-5.0 [facility] Work Phone: [phone] Serum or plasma calcium aubree urement (mass/volume)on 03-29-2022 Calcium [Mass/Vol] 8.1 mg/dL 8.5-10.1 [facility] Work Phone: Serum or plasma creatinine m easurement (mass/volume)on 03-29-2022 Creatinine [Mass/Vol] 2.22 mg/dL 0.70-1.30 [facility] Work Phone: Comment on above: The validity of the calculated GFR & GFRAA in patients over 70 years has not been determined. Clinical correlation is essential. Serum or plasma ferritin laurie surement (mass/volume)on 03-29-2022 Ferritin [Mass/Vol] 209 ng/mL 26-388 [facility] Work Phone: Serum or plasma iron saturat ion measurement (mass fraction)on 03-29-2022 Iron saturation [Mass fraction] 29.3 % 15.0-55.0 [facility] Work Phone: Serum or plasma urea nitroge n measurement (mass/volume)on 03-29-2022 Urea nitrogen [Mass/Vol] 61 mg/dL 7-18 [facility] Work Phone: Serum or plasma uric acid me asurement (mass/volume)on 03-29-2022 Urate [Mass/Vol] 5.8 mg/dL 3.5-7.2 [facility] Work Phone: Comment on above: The drugs N-Acetylcy steine and Metamizole may falsely depress this assay. Urine creatinine measurement (mass/volume)on 03-29-2022 Creatinine (U) [Mass/Vol] 90.50 mg/dL NO RANGE EST. [facility] Work Phone: Urine protein measurement (m ass/volume)on 03-29-2022 Protein (U) [Mass/Vol] 81.6 mg/dL 0.0-11.8 [facility] Work Phone: [phone] Urine protein/creatinine mas s ratioon 03-29-2022 Protein/Creatinine (U) [Mass ratio] 902 mg/g CRE 0-200 [facility] Work Phone: Absolute lymphocyte counton 03-15-2022 Lymphocytes Auto (Unsp spec) [#/Vol] 1.54 10*3/uL 0.83-4.51 [facility] Work Phone: Basophil percentageon 2021 Basophil percentage 3.0 mg/dL 2.5-4.9 [facility] Work Phone: Basophils/100 WBC (Bld) 0.3 % 0-1 [facility] Work Phone: Chloride [Moles/Vol] 108 mmol/L 98-107 [facility] Work [facility]: Eosinophils/100 WBC (Bld) 1.4 % 0-5 [facility] Work Phone: Glucose [Mass/Vol] 233 mg/dL 74-106 [facility] Work Phone: Comment on above: Glucose result great er than or equal to 200 mg/dLsuggests DIABETES MELLITUS per A.D.A. criteria. Neutrophils (Bld) [#/Vol] 7.0 10*3/uL 2.0-7.7 [facility] Work Phone: Neutrophils/100 WBC (Bld) 74.8 % 47-70 [facility] Work Phone: Potassium [Moles/Vol] 4.5 mmol/L 3.5-5.1 [facility] Work Phone: Sodium [Moles/Vol] 139 mmol/L 136-145 [facility] Work Phone: WBC (Bld) [#/Vol] 9.3 10*3/uL 4.4-11.0 [facility] Work Phone: Blood erythrocytes count (nu mber/volume)on 03-15-2022 RBC (Bld) [#/Vol] 3.12 10*6/uL 4.6-6.2 [facility] Work Phone: Blood hemoglobin measurement (mass/volume)on 03-15-2022 Hemoglobin (Bld) [Mass/Vol] 9.9 g/dL 13.0-16.5 [facility] Work Phone: Blood lymphocytes/100 leukoc yteson 03-15-2022 Lymphocytes/100 WBC (Bld) 16.5 % 19-41 [facility] Work Phone: Blood monocytes/100 leukocyt eson 03-15-2022 Monocytes/100 WBC (Bld) 5.6 % 0-10 [facility] Work Phone: Blood platelet mean volumeon 03-15-2022 Platelet mean volume (Bld) [Entitic vol] 9.9 fL 6.2-12.0 [facility] Work Phone: Determination of erythrocyte mean corpuscular volume (MCV)on 03-15-2022 MCV (RBC) [Entitic vol] 100.6 fL 80-94 [facility] Work Phone: Hematocrit Auto (Bld) [Volum e fraction]on 03-15-2022 Hematocrit (Bld) [Volume fraction] 31.4 % 40-54 [facility] Work Phone: Iron measurement (mass/mass) on 03-15-2022 Iron (Unsp spec) [Mass/Mass] 69 ug/dL 65-175 [facility] Work Phone: Laboratory - Chemistry and C hemistry - challengeon 03-15-2022 CO2 [Moles/Vol] 25.0 mmol/L 21.0-32.0 [facility] Work Phone: Urea nitrogen/Creatinine [Mass ratio] 31.6 mg/mg 10-20 [facility] Work Phone: Laboratory - Hematology and Cell countson 03-15-2022 Erythrocyte distribution width (RBC) [Entitic vol] 56.5 fL 35.1-43.9 [facility] Work Phone: Erythrocyte distribution width (RBC) [Ratio] 15.5 % 11.6-14.6 [facility] Work Phone: Immature granulocytes/100 WBC (Bld) 1.400 % 0.0-0.9 [facility] Work Phone: Comment on above: IG% - Immature Granu locytes (promyelocytes, myelocytes and metamyelocytes) > 1% indicates that a LEFT SHIFT is Present. MCH (RBC) [Entitic mass] 31.7 pg 27.0-32.0 [facility] Work Phone: Nucleated RBC/100 WBC (Bld) [Ratio] 0 % 0-5 [facility] Work Phone: [phone] MCHC Auto (RBC) [Mass/Vol]on 03-15-2022 MCHC (RBC) [Mass/Vol] 31.5 g/dL 32-36 [facility] Work Phone: No Panel Informationon 03-15 Estimated Creatinine Clearance Calc 17.61 ml/min [facility] Work Phone: Estimated GFR (MDRD) Amer 27 mL/min >60 [facility] Work Phone: [phone] Comment on above: GFR Calc Estimated GFR (MDRD) Non-Af Amer 22 mL/min >60 [facility] Work Phone: Comment on above: Non- GFR Calc Parathyroid Hormone (Intact) 89.0 pg/mL 18.4-80.1 [facility] Work Phone: Total Iron Binding Capacity 254 ug/dL 250-450 [facility] Work Phone: Platelets bldon 03-15-2022 Platelets (Bld) [#/Vol] 134 10*3/uL 150-450 [facility] Work Phone: [phone] Serum or plasma albumin aubree urement (mass/volume)on 03-15-2022 Albumin [Mass/Vol] 3.1 g/dL 3.2-5.0 [facility] Work Phone: [phone] Serum or plasma calcium aubree urement (mass/volume)on 03-15-2022 Calcium [Mass/Vol] 8.9 mg/dL 8.5-10.1 [facility] Work Phone: [phone] Serum or plasma creatinine m easurement (mass/volume)on 03-15-2022 Creatinine [Mass/Vol] 2.91 mg/dL 0.70-1.30 [facility] Work Phone: Comment on above: The validity of the calculated GFR & GFRAA in patients over 70 years has not been determined. Clinical correlation is essential. Serum or plasma ferritin laurie surement (mass/volume)on 03-15-2022 Ferritin [Mass/Vol] 237 ng/mL 26-388 [facility] Work Phone: [phone] Serum or plasma iron saturat ion measurement (mass fraction)on 03-15-2022 Iron saturation [Mass fraction] 27.2 % 15.0-55.0 [facility] Work Phone: [phone] Serum or plasma urea nitroge n measurement (mass/volume)on 03-15-2022 Urea nitrogen [Mass/Vol] 92 mg/dL -18 [facility] Work Phone: [phone] Absolute lymphocyte counton 02-15-2022 Lymphocytes Auto (Unsp spec) [#/Vol] 1.47 10*3/uL 0.83-4.51 [facility] Work Phone: Basophil percentageon 2021 Basophil percentage 3.3 mg/dL 2.5-4.9 [facility] Work Phone: Basophils/100 WBC (Bld) 0.2 % 0-1 [facility] Work Phone: Chloride [Moles/Vol] 110 mmol/L 98-107 [facility] Work Phone: Eosinophils/100 WBC (Bld) 1.4 % 0-5 [facility] Work Phone: Glucose [Mass/Vol] 139 mg/dL 74-106 [facility] Work Phone: Comment on above: Fasting Glucose resu lt greater than or equal to 126 mg/dL suggests DIABETES MELLITUS per A.D.A. criteria. Neutrophils (Bld) [#/Vol] 7.7 10*3/uL 2.0-7.7 [facility] Work Phone: Neutrophils/100 WBC (Bld) 76.8 % 47-70 [facility] Work Phone: Potassium [Moles/Vol] 4.7 mmol/L 3.5-5.1 [facility] Work Phone: Sodium [Moles/Vol] 141 mmol/L 136-145 [facility] Work Phone: WBC (Bld) [#/Vol] 10.0 10*3/uL 4.4-11.0 [facility] Work Phone: Blood erythrocytes count (nu mber/volume)on 02-15-2022 RBC (Bld) [#/Vol] 3.28 10*6/uL 4.6-6.2 [facility] Work Phone: [phone] Blood hemoglobin measurement (mass/volume)on 02-15-2022 Hemoglobin (Bld) [Mass/Vol] 10.6 g/dL 13.0-16.5 [facility] Work Phone: Blood lymphocytes/100 leukoc yteson 02-15-2022 Lymphocytes/100 WBC (Bld) 14.8 % 19-41 [facility] Work Phone: [phone] Blood monocytes/100 leukocyt eson 02-15-2022 Monocytes/100 WBC (Bld) 6.4 % 0-10 [facility] Work Phone: [phone] Blood platelet mean volumeon 02-15-2022 Platelet mean volume (Bld) [Entitic vol] 10.0 fL 6.2-12.0 [facility] Work Phone: Determination of erythrocyte mean corpuscular volume (MCV)on 02-15-2022 MCV (RBC) [Entitic vol] 98.8 fL 80-94 [facility] Work Phone: Hematocrit Auto (Bld) [Volum e fraction]on 02-15-2022 Hematocrit (Bld) [Volume fraction] 32.4 % 40-54 [facility] Work Phone: [phone] Iron measurement (mass/mass) on 02-15-2022 Iron (Unsp spec) [Mass/Mass] 78 ug/dL 65-175 [facility] Work Phone: Laboratory - Chemistry and C hemistry - challengeon 02-15-2022 CO2 [Moles/Vol] 27.0 mmol/L 21.0-32.0 [facility] Work Phone: [phone] Urea nitrogen/Creatinine [Mass ratio] 34.2 mg/mg 10-20 [facility] Work Phone: [phone] Laboratory - Hematology and Cell countson 02-15-2022 Erythrocyte distribution width (RBC) [Entitic vol] 53.1 fL 35.1-43.9 [facility] Work Phone: [phone] Erythrocyte distribution width (RBC) [Ratio] 14.8 % 11.6-14.6 [facility] Work Phone: [phone] Immature granulocytes/100 WBC (Bld) 0.400 % 0.0-0.9 [facility] Work Phone: [phone] Comment on above: IG% - Immature Granu locytes (promyelocytes, myelocytes and metamyelocytes) > 1% indicates that a LEFT SHIFT is Present. MCH (RBC) [Entitic mass] 32.3 pg 27.0-32.0 [facility] Work Phone: Nucleated RBC/100 WBC (Bld) [Ratio] 0 % 0-5 [facility] Work Phone: [phone] MCHC Auto (RBC) [Mass/Vol]on 02-15-2022 MCHC (RBC) [Mass/Vol] 32.7 g/dL 32-36 [facility] Work Phone: No Panel Informationon 02-15 Estimated GFR (MDRD) Amer 37 mL/min >60 [facility] Work Phone: [phone] Comment on above: GFR Calc Estimated GFR (MDRD) Non-Af Amer 31 mL/min >60 [facility] Work Phone: [phone] Comment on above: Non- GFR Calc Total Iron Binding Capacity 250 ug/dL 250-450 [facility] Work Phone: Platelets bldon 02-15-2022 Platelets (Bld) [#/Vol] 127 10*3/uL 150-450 [facility] Work Phone: [phone] Serum or plasma albumin aubree urement (mass/volume)on 02-15-2022 Albumin [Mass/Vol] 3.2 g/dL 3.2-5.0 [facility] Work Phone: [phone] Serum or plasma calcium aubree urement (mass/volume)on 02-15-2022 Calcium [Mass/Vol] 9.3 mg/dL 8.5-10.1 [facility] Work Phone: [phone] Serum or plasma creatinine m easurement (mass/volume)on 02-15-2022 Creatinine [Mass/Vol] 2.19 mg/dL 0.70-1.30 [facility] Work Phone: Comment on above: The validity of the calculated GFR & GFRAA in patients over 70 years has not been determined. Clinical correlation is essential. Serum or plasma ferritin laurie surement (mass/volume)on 02-15-2022 Ferritin [Mass/Vol] 257 ng/mL 26-388 [facility] Work Phone: [phone] Serum or plasma iron saturat ion measurement (mass fraction)on 02-15-2022 Iron saturation [Mass fraction] 31.2 % 15.0-55.0 [facility] Work Phone: [phone] Serum or plasma urea nitroge n measurement (mass/volume)on 02-15-2022 Urea nitrogen [Mass/Vol] 75 mg/dL 7-18 [facility] Work Phone: Basophil percentageon 2021 Chloride [Moles/Vol] 105 mmol/L 98-107 [facility] Work Phone: [phone] Glucose [Mass/Vol] 120 mg/dL 74-106 [facility] Work Phone: [phone] Comment on above: Fasting Glucose resu lt from 100 to 125 mg/dL suggests IMPAIRED HOMEOSTASIS per A.D.A. criteria. Potassium [Moles/Vol] 4.8 mmol/L 3.5-5.1 [facility] Work Phone: [phone] Sodium [Moles/Vol] 138 mmol/L 136-145 [facility] Work Phone: [phone] WBC (Bld) [#/Vol] 10.6 10*3/uL 4.4-11.0 [facility] Work Phone: Blood erythrocytes count (nu mber/volume)on 01-25-2022 RBC (Bld) [#/Vol] 4.06 10*6/uL 4.6-6.2 [facility] Work Phone: Blood hemoglobin measurement (mass/volume)on 01-25-2022 Hemoglobin (Bld) [Mass/Vol] 12.7 g/dL 13.0-16.5 [facility] Work Phone: [phone] Blood platelet mean volumeon 01-25-2022 Platelet mean volume (Bld) [Entitic vol] 10.6 fL 6.2-12.0 [facility] Work Phone: Determination of erythrocyte mean corpuscular volume (MCV)on 01-25-2022 MCV (RBC) [Entitic vol] 97.5 fL 80-94 [facility] Work Phone: [phone] Hematocrit Auto (Bld) [Volum e fraction]on 01-25-2022 Hematocrit (Bld) [Volume fraction] 39.6 % 40-54 [facility] Work Phone: Laboratory - Chemistry and C hemistry - challengeon 01-25-2022 CO2 [Moles/Vol] 31.0 mmol/L 21.0-32.0 [facility] Work Phone: Urea nitrogen/Creatinine [Mass ratio] 34.9 mg/mg 10-20 [facility] Work Phone: [phone] Laboratory - Hematology and Cell countson 01-25-2022 Erythrocyte distribution width (RBC) [Entitic vol] 52.1 fL 35.1-43.9 [facility] Work Phone: [phone] Erythrocyte distribution width (RBC) [Ratio] 14.5 % 11.6-14.6 [facility] Work Phone: MCH (RBC) [Entitic mass] 31.3 pg 27.0-32.0 [facility] Work Phone: MCHC Auto (RBC) [Mass/Vol]on 01-25-2022 MCHC (RBC) [Mass/Vol] 32.1 g/dL 32-36 [facility] Work Phone: No Panel Informationon 01-25 Estimated GFR (MDRD) Amer 38 mL/min >60 [facility] Work Phone: Comment on above: GFR Calc Estimated GFR (MDRD) Non-Af Amer 31 mL/min >60 [facility] Work Phone: Comment on above: Non- GFR Calc Platelets bldon 01-25-2022 Platelets (Bld) [#/Vol] 151 10*3/uL 150-450 [facility] Work Phone: Serum or plasma calcium aubree urement (mass/volume)on 01-25-2022 Calcium [Mass/Vol] 8.8 mg/dL 8.5-10.1 [facility] Work Phone: Serum or plasma creatinine m easurement (mass/volume)on 01-25-2022 Creatinine [Mass/Vol] 2.18 mg/dL 0.70-1.30 [facility] Work Phone: Comment on above: The validity of the calculated GFR & GFRAA in patients over 70 years has not been determined. Clinical correlation is essential. Serum or plasma urea nitroge n measurement (mass/volume)on 01-25-2022 Urea nitrogen [Mass/Vol] 76 mg/dL 7-18 [facility] Work Phone: [phone] Thin prep Papanicolaou smear with manual screeningon 01-25-2022 Thin prep Papanicolaou smear with manual screening 2 5-15 [facility] Work Phone: [phone] Whole blood hemoglobin A1c/t otal hemoglobin ratio (mass fraction)on 01-25-2022 HbA1c (Bld) [Mass fraction] 6.6 % 3.8-5.6 [facility] Work Phone: Comment on above: Normal < 5.7 % Predi abetic 5.7 - 6.4 % Diabetic >or= 6.5 % Please note range changes. Absolute lymphocyte counton 01-18-2022 Lymphocytes Auto (Unsp spec) [#/Vol] 1.51 10*3/uL 0.83-4.51 [facility] Work Phone: Basophil percentageon 2021 Basophil percentage 2.4 mg/dL 2.5-4.9 [facility] Work Phone: Basophils/100 WBC (Bld) 0.3 % 0-1 [facility] Work Phone: Chloride [Moles/Vol] 105 mmol/L 98-107 [facility] Work Phone: Eosinophils/100 WBC (Bld) 0.6 % 0-5 [facility] Work Phone: Glucose [Mass/Vol] 225 mg/dL 74-106 [facility] Work Phone: Comment on above: Glucose result great er than or equal to 200 mg/dLsuggests DIABETES MELLITUS per A.D.A. criteria. Neutrophils (Bld) [#/Vol] 7.7 10*3/uL 2.0-7.7 [facility] Work Phone: Neutrophils/100 WBC (Bld) 77.2 % 47-70 [facility] Work Phone: Potassium [Moles/Vol] 4.4 mmol/L 3.5-5.1 [facility] Work Phone: Sodium [Moles/Vol] 138 mmol/L 136-145 [facility] Work Phone: WBC (Bld) [#/Vol] 9.9 10*3/uL 4.4-11.0 [facility] Work Phone: Blood erythrocytes count (nu mber/volume)on 01-18-2022 RBC (Bld) [#/Vol] 3.88 10*6/uL 4.6-6.2 [facility] Work Phone: Blood hemoglobin measurement (mass/volume)on 01-18-2022 Hemoglobin (Bld) [Mass/Vol] 12.3 g/dL 13.0-16.5 [facility] Work Phone: Blood lymphocytes/100 leukoc yteson 01-18-2022 Lymphocytes/100 WBC (Bld) 15.2 % 19-41 [facility] Work Phone: Blood monocytes/100 leukocyt eson 01-18-2022 Monocytes/100 WBC (Bld) 6.3 % 0-10 [facility] Work Phone: Blood platelet mean volumeon 01-18-2022 Platelet mean volume (Bld) [Entitic vol] 10.9 fL 6.2-12.0 [facility] Work Phone: Determination of erythrocyte mean corpuscular volume (MCV)on 01-18-2022 MCV (RBC) [Entitic vol] 95.6 fL 80-94 [facility] Work Phone: Hematocrit Auto (Bld) [Volum e fraction]on 01-18-2022 Hematocrit (Bld) [Volume fraction] 37.1 % 40-54 [facility] Work Phone: Iron measurement (mass/mass) on 01-18-2022 Iron (Unsp spec) [Mass/Mass] 94 ug/dL 65-175 [facility] Work Phone: Laboratory - Chemistry and C hemistry - challengeon 01-18-2022 CO2 [Moles/Vol] 27.0 mmol/L 21.0-32.0 [facility] Work Phone: Urea nitrogen/Creatinine [Mass ratio] 37.1 mg/mg 10-20 [facility] Work Phone: Laboratory - Hematology and Cell countson 01-18-2022 Erythrocyte distribution width (RBC) [Entitic vol] 51.5 fL 35.1-43.9 [facility] Work Phone: Erythrocyte distribution width (RBC) [Ratio] 14.8 % 11.6-14.6 [facility] Work Phone: Immature granulocytes/100 WBC (Bld) 0.400 % 0.0-0.9 [facility] Work Phone: Comment on above: IG% - Immature Granu locytes (promyelocytes, myelocytes and metamyelocytes) > 1% indicates that a LEFT SHIFT is Present. MCH (RBC) [Entitic mass] 31.7 pg 27.0-32.0 [facility] Work Phone: Nucleated RBC/100 WBC (Bld) [Ratio] 0 % 0-5 [facility] Work Phone: MCHC Auto (RBC) [Mass/Vol]on 01-18-2022 MCHC (RBC) [Mass/Vol] 33.2 g/dL 32-36 [facility] Work Phone: No Panel Informationon 01-18 Estimated GFR (MDRD) Amer 37 mL/min >60 [facility] Work Phone: Comment on above: GFR Calc Estimated GFR (MDRD) Non-Af Amer 31 mL/min >60 [facility] Work Phone: Comment on above: Non- GFR Calc Total Iron Binding Capacity 239 ug/dL 250-450 [facility] Work Phone: Platelets bldon 01-18-2022 Platelets (Bld) [#/Vol] 143 10*3/uL 150-450 [facility] Work Phone: [phone] Serum or plasma albumin aubree urement (mass/volume)on 01-18-2022 Albumin [Mass/Vol] 3.2 g/dL 3.2-5.0 [facility] Work Phone: [phone] Serum or plasma calcium aubree urement (mass/volume)on 01-18-2022 Calcium [Mass/Vol] 8.4 mg/dL 8.5-10.1 [facility] Work Phone: Serum or plasma creatinine m easurement (mass/volume)on 01-18-2022 Creatinine [Mass/Vol] 2.21 mg/dL 0.70-1.30 [facility] Work Phone: Comment on above: The validity of the calculated GFR & GFRAA in patients over 70 years has not been determined. Clinical correlation is essential. Serum or plasma ferritin laurie surement (mass/volume)on 01-18-2022 Ferritin [Mass/Vol] 241 ng/mL 26-388 [facility] Work Phone: Serum or plasma iron saturat ion measurement (mass fraction)on 01-18-2022 Iron saturation [Mass fraction] 39.3 % 15.0-55.0 [facility] Work Phone: Serum or plasma urea nitroge n measurement (mass/volume)on 01-18-2022 Urea nitrogen [Mass/Vol] 82 mg/dL 7-18 [facility] Work Phone: Absolute lymphocyte counton 12-21-2021 Lymphocytes Auto (Unsp spec) [#/Vol] 1.78 10*3/uL 0.83-4.51 [facility] Work Phone: Basophil percentageon 2021 Basophil percentage 2.6 mg/dL 2.5-4.9 [facility] Work Phone: Basophils/100 WBC (Bld) 0.5 % 0-1 [facility] Work Phone: Chloride [Moles/Vol] 107 mmol/L 98-107 [facility] Work Phone: [phone] Eosinophils/100 WBC (Bld) 4.2 % 0-5 [facility] Work Phone: Glucose [Mass/Vol] 159 mg/dL 74-106 [facility] Work Phone: Comment on above: Fasting Glucose resu lt greater than or equal to 126 mg/dL suggests DIABETES MELLITUS per A.D.A. criteria. Neutrophils (Bld) [#/Vol] 5.0 10*3/uL 2.0-7.7 [facility] Work Phone: Neutrophils/100 WBC (Bld) 64.1 % 47-70 [facility] Work Phone: Potassium [Moles/Vol] 4.5 mmol/L 3.5-5.1 [facility] Work [place]: Sodium [Moles/Vol] 138 mmol/L 136-145 [facility] Work Phone: WBC (Bld) [#/Vol] 7.8 10*3/uL 4.4-11.0 [facility] Work Phone: Blood erythrocytes count (nu mber/volume)on 12-21-2021 RBC (Bld) [#/Vol] 3.63 10*6/uL 4.6-6.2 [facility] Work Phone: Blood hemoglobin measurement (mass/volume)on 12-21-2021 Hemoglobin (Bld) [Mass/Vol] 11.3 g/dL 13.0-16.5 [facility] Work Phone: Blood lymphocytes/100 leukoc yteson 12-21-2021 Lymphocytes/100 WBC (Bld) 22.7 % 19-41 [facility] Work Phone: Blood monocytes/100 leukocyt eson 12-21-2021 Monocytes/100 WBC (Bld) 8.0 % 0-10 [facility] Work Phone: Blood platelet mean volumeon 12-21-2021 Platelet mean volume (Bld) [Entitic vol] 10.4 fL 6.2-12.0 [facility] Work Phone: Determination of erythrocyte mean corpuscular volume (MCV)on 12-21-2021 MCV (RBC) [Entitic vol] 95.0 fL 80-94 [facility] Work Phone: Hematocrit Auto (Bld) [Volum e fraction]on 12-21-2021 Hematocrit (Bld) [Volume fraction] 34.5 % 40-54 [facility] Work Phone: [phone] Iron measurement (mass/mass) on 12-21-2021 Iron (Unsp spec) [Mass/Mass] 79 ug/dL 65-175 [facility] Work Phone: [phone] Laboratory - Chemistry and C hemistry - challengeon 12-21-2021 CO2 [Moles/Vol] 26.0 mmol/L 21.0-32.0 [facility] Work Phone: [phone] Urea nitrogen/Creatinine [Mass ratio] 31.5 mg/mg 10-20 [facility] Work Phone: [phone] Laboratory - Hematology and Cell countson 12-21-2021 Erythrocyte distribution width (RBC) [Entitic vol] 51.0 fL 35.1-43.9 [facility] Work Phone: [phone] Erythrocyte distribution width (RBC) [Ratio] 14.8 % 11.6-14.6 [facility] Work Phone: [phone] Immature granulocytes/100 WBC (Bld) 0.500 % 0.0-0.9 [facility] Work Phone: [phone] Comment on above: IG% - Immature Granu locytes (promyelocytes, myelocytes and metamyelocytes) > 1% indicates that a LEFT SHIFT is Present. MCH (RBC) [Entitic mass] 31.1 pg 27.0-32.0 [facility] [facility]: [phone] Nucleated RBC/100 WBC (Bld) [Ratio] 0 % 0-5 [facility] Work Phone: [phone] MCHC Auto (RBC) [Mass/Vol]on 12-21-2021 MCHC (RBC) [Mass/Vol] 32.8 g/dL 32-36 [facility] Work Phone: [phone] No Panel Informationon 12-21 Estimated GFR (MDRD) Amer 32 mL/min >60 [facility] Work Phone: [phone] Comment on above: GFR Calc Estimated GFR (MDRD) Non-Af Amer 26 mL/min >60 [facility] Work Phone: Comment on above: Non- GFR Calc Parathyroid Hormone (Intact) 43.1 pg/mL 18.4-80.1 [facility] Work Phone: Total Iron Binding Capacity 228 ug/dL 250-450 [facility] Work Phone: Platelets bldon 12-21-2021 Platelets (Bld) [#/Vol] 140 10*3/uL 150-450 [facility] Work Phone: Serum or plasma albumin aubree urement (mass/volume)on 12-21-2021 Albumin [Mass/Vol] 3.0 g/dL 3.2-5.0 [facility] Work Phone: Serum or plasma calcium aubree urement (mass/volume)on 12-21-2021 Calcium [Mass/Vol] 8.9 mg/dL 8.5-10.1 [facility] Work Phone: Serum or plasma creatinine m easurement (mass/volume)on 12-21-2021 Creatinine [Mass/Vol] 2.54 mg/dL 0.70-1.30 [facility] Work Phone: Comment on above: The validity of the calculated GFR & GFRAA in patients over 70 years has not been determined. Clinical correlation is essential. Serum or plasma ferritin laurie surement (mass/volume)on 12-21-2021 Ferritin [Mass/Vol] 356 ng/mL 26-388 [facility] Work Phone: Serum or plasma iron saturat ion measurement (mass fraction)on 12-21-2021 Iron saturation [Mass fraction] 34.6 % 15.0-55.0 [facility] Work Phone: Serum or plasma urea nitroge n measurement (mass/volume)on 12-21-2021 Urea nitrogen [Mass/Vol] 80 mg/dL 7-18 [facility] Work Phone: Vital Signs Date Time Vital Sign Value Performing Clinician Facility 06-20-2025 [id number] Body height 165.[address] Rios Downey DO Work Phone: [facility] 06-20-2025 15:07-0400 Body mass index (BMI) [Ratio] 38.9 kg/m2 Dr. Rios Downey DO Work Phone: [facility] 06-20-2025 15:07-0400 Body weight 106.[address] Rios Downey DO Work Phone: [facility] 06-20-2025 15:07-0400 Diastolic blood pressure 59 mm[Hg] Dr. Rios Downey DO Work Phone: [facility] 06-20-2025 15:07-0400 Heart rate 52 /min Dr. Rios Downey DO Work Phone: [facility] 06-20-2025 15:07-0400 Respiratory rate 18 /min Dr. Rios Downey DO Work Phone: [facility] 06-20-2025 15:07-0400 Systolic blood pressure 125 mm[Hg] Dr. Rios Downey DO Work Phone: [facility] 06-13-2025 10:26-0400 Body mass index (BMI) [Ratio] 40.1 kg/m2 Dr. Rios Downey DO Work Phone: [facility] 06-13-2025 10:26-0400 Body temperature 96.8 [degF] Dr. Rios Downey DO Work Phone: [facility] 06-13-2025 10:26-0400 Body weight 109.[address] Rios Downey DO Work Phone: [facility] 06-13-2025 10:26-0400 Diastolic blood pressure 70 mm[Hg] Dr. Rios Downey DO Work Phone: [facility] 06-13-2025 10:26-0400 Heart rate 54 /min Dr. Rios Downey DO Work Phone: [facility] 06-13-2025 10:26-0400 Inhaled oxygen flow rate 3 L/min Dr. Rios Downey DO Work Phone: [facility] 06-13-2025 10:26-0400 Respiratory rate 20 /min Dr. Rios Downey DO Work Phone: [facility] 06-13-2025 10:26-0400 SaO2% (BldA) [Mass fraction] 91 % Dr. Rios Downey DO Work Phone: [facility] 06-13-2025 10:26-0400 Systolic blood pressure 158 mm[Hg] Dr. Rios Downey DO Work Phone: [facility] 06-01-2025 00:42-0400 Body temperature 97.9 [degF] Dr. Rios Downey DO Work Phone: [facility] 06-01-2025 00:42-0400 Diastolic blood pressure 84 mm[Hg] Dr. Rios Downey DO Work Phone: [facility] 06-01-2025 00:42-0400 Heart rate 51 /min Dr. Rios Downey DO Work Phone: [facility] 06-01-2025 00:42-0400 Respiratory rate 19 /min Dr. Rios Downey DO Work Phone: [facility] 06-01-2025 00:42-0400 SaO2% (BldA) [Mass fraction] 100 % Dr. Rios Downey DO Work Phone: [facility] 06-01-2025 00:42-0400 Systolic blood pressure 144 mm[Hg] Dr. Rios Downey DO Work Phone: [facility] 05-31-2025 22:22-0400 Inhaled oxygen flow rate 5 L/min Dr. Rios Downey DO Work Phone: [facility] 05-31-2025 22:20-0400 Body mass index (BMI) [Ratio] 41 kg/m2 Dr. Rios Downey DO Work Phone: [facility] 05-31-2025 22:20-0400 Body weight 111.[address] Rios Downey DO Work Phone: [facility] 05-31-2025 22:00-0400 Body height 165.[address] Rios Downey DO Work Phone: [facility] 03-14-2025 08:07-0400 Body mass index (BMI) [Ratio] 39.7 kg/m2 Dr. Rios Downey DO Work Phone: [facility] 03-14-2025 08:07-0400 Body temperature 97.4 [degF] Dr. Rios Downey DO Work Phone: [facility] 03-14-2025 08:07-0400 Body weight 108.[address] Rios Downey DO Work Phone: [facility] 03-14-2025 08:07-0400 Diastolic blood pressure 83 mm[Hg] Dr. Rios Downey DO Work Phone: [facility] 03-14-2025 08:07-0400 Heart rate 50 /min Dr. Rios Downey DO Work Phone: [facility] 03-14-2025 08:07-0400 Inhaled oxygen flow rate 4 L/min Dr. Rios Downey DO Work Phone: [facility] 03-14-2025 08:07-0400 Respiratory rate 20 /min Dr. Rios Downey DO Work Phone: [facility] 03-14-2025 08:07-0400 SaO2% (BldA) [Mass fraction] 99 % Dr. Rios Downey DO Work Phone: [facility] 03-14-2025 08:07-0400 Systolic blood pressure 165 mm[Hg] Dr. Rios Downey DO Work Phone: [facility] 03-23-2024 15:00-0400 Body height 165.[address] Rios Downey Work Phone: [facility] 03-23-2024 15:00-0400 Body mass index (BMI) [Ratio] 38.9 kg/m2 Dr. Rios Downey Work Phone: [facility] 03-23-2024 15:00-0400 Body weight 106.[address] Rios Downey Work Phone: [facility] 03-23-2024 15:00-0400 Diastolic blood pressure 68 mm[Hg] Dr. Rios Downey Work Phone: [facility] 03-23-2024 15:00-0400 Heart rate 73 /min Dr. Rios Downey Work Phone: [facility] 03-23-2024 15:00-0400 Inhaled oxygen flow rate 5 L/min Dr. Rios Downey Work Phone: [facility] 03-23-2024 15:00-0400 Respiratory rate 22 /min Dr. Rios Downey Work Phone: [facility] 03-23-2024 15:00-0400 SaO2% (BldA) [Mass fraction] 96 % Dr. Rios Downey Work Phone: [facility] 03-23-2024 15:00-0400 Systolic blood pressure 111 mm[Hg] Dr. Rios Downey Work Phone: [facility] 02-19-2024 16:28-0400 Body temperature 97.6 [degF] [facility] 02-19-2024 16:28-0400 Diastolic blood pressure 72 mm[Hg] [facility] 02-19-2024 16:28-0400 Heart rate 52 /min [facility] 02-19-2024 16:28-0400 Respiratory rate 17 /min [facility] 02-19-2024 16:28-0400 SaO2% (BldA) [Mass fraction] 95 % [facility] 02-19-2024 16:28-0400 Systolic blood pressure 149 mm[Hg] [facility] 02-19-2024 13:00-0400 Inhaled oxygen flow rate 2 L/min [facility] 02-19-2024 12:32-0400 Body mass index (BMI) [Ratio] 39.4 kg/m2 [facility] 02-19-2024 12:32-0400 Body weight 107.4 kg [facility] 02-19-2024 11:34-0400 Body height 165.1 cm [facility] 02-16-2024 03:00-0400 Body temperature 97.7 [degF] [facility] 02-16-2024 03:00-0400 Diastolic blood pressure 100 mm[Hg] [facility] 02-16-2024 03:00-0400 Heart rate 57 /min [facility] 02-16-2024 03:00-0400 Respiratory rate 18 /min [facility] 02-16-2024 03:00-0400 SaO2% (BldA) [Mass fraction] 98 % [facility] 02-16-2024 03:00-0400 Systolic blood pressure 135 mm[Hg] [facility] 02-15-2024 23:56-0400 Body mass index (BMI) [Ratio] 38.6 kg/m2 [facility] 02-15-2024 23:56-0400 Body weight 105.4 kg [facility] 02-15-2024 22:56-0400 Body height 165.1 cm [facility] 02-15-2024 22:56-0400 Inhaled oxygen flow rate 2 L/min [facility] 11-23-2023 15:42-0500 Body height 165.[address] Rios Downey Work Phone: [facility] 11-23-2023 15:42-0500 Body mass index (BMI) [Ratio] 41.5 kg/m2 Dr. Rios Downey Work Phone: [facility] 11-23-2023 15:42-0500 Body temperature 97.4 [degF] Dr. Rios Downey Work Phone: [facility] 11-23-2023 15:42-0500 Body weight 113.[address] Rios Downey Work Phone: [facility] 11-23-2023 15:42-0500 Diastolic blood pressure 53 mm[Hg] Dr. Rios Downey Work Phone: [facility] 11-23-2023 15:42-0500 Heart rate 61 /min Dr. Rios Downey Work Phone: [facility] 11-23-2023 15:42-0500 Inhaled oxygen flow rate 2 L/min Dr. Rios Downey Work Phone: [facility] 11-23-2023 15:42-0500 Respiratory rate 16 /min Dr. Rios Downey Work Phone: [facility] 11-23-2023 15:42-0500 Systolic blood pressure 101 mm[Hg] Dr. Rios Downey Work Phone: [facility] 10-05-2023 07:44-0500 Body height 165.[address] Rios Downey Work Phone: [facility] 10-05-2023 07:44-0500 Body mass index (BMI) [Ratio] 41.4 kg/m2 Dr. Rios Downey Work Phone: [facility] 10-05-2023 07:44-0500 Body temperature 98.5 [degF] Dr. Rios Downey Work Phone: [facility] 10-05-2023 07:44-0500 Body weight 112.[address] Rios Downey Work Phone: [facility] 10-05-2023 07:44-0500 Diastolic blood pressure 59 mm[Hg] Dr. Rios Downey Work Phone: [facility] 10-05-2023 07:44-0500 Heart rate 65 /min Dr. Rios Downey Work Phone: [facility] 10-05-2023 07:44-0500 Inhaled oxygen flow rate 2 L/min Dr. Rios Downey Work Phone: [facility] 10-05-2023 07:44-0500 Respiratory rate 17 /min Dr. Rios Downey Work Phone: [facility] 10-05-2023 07:44-0500 SaO2% (BldA) [Mass fraction] 94 % Dr. Rios Downey Work Phone: [facility] 10-05-2023 07:44-0500 Systolic blood pressure 109 mm[Hg] Dr. Rios Downey Work Phone: [facility] 09-28-2023 15:55-0400 Body height 165.[address] Rios Downey Work Phone: [facility] 09-28-2023 15:55-0400 Body mass index (BMI) [Ratio] 41.4 kg/m2 Dr. Rios Downey Work Phone: [facility] 09-28-2023 15:55-0400 Body temperature 97.9 [degF] Dr. Rios Downey Work Phone: [facility] 09-28-2023 15:55-0400 Body weight 112.[address] Rios Downey Work Phone: [facility] 09-28-2023 15:55-0400 Diastolic blood pressure 72 mm[Hg] Dr. Rios Downey Work Phone: [facility] 09-28-2023 15:55-0400 Heart rate 54 /min Dr. Rios Downey Work Phone: [facility] 09-28-2023 15:55-0400 Inhaled oxygen flow rate 2 L/min Dr. Rios Downey Work Phone: [facility] 09-28-2023 15:55-0400 Respiratory rate 18 /min Dr. Rios Downey Work Phone: [facility] 09-28-2023 15:55-0400 SaO2% (BldA) [Mass fraction] 96 % Dr. Rios Downey Work Phone: [facility] 09-28-2023 15:55-0400 Systolic blood pressure 154 mm[Hg] Dr. Rios Downey Work Phone: [facility] 09-22-2023 16:45-0400 Body temperature 98.1 [degF] Dr. Rios Downey Work Phone: [facility] 09-22-2023 16:45-0400 Diastolic blood pressure 74 mm[Hg] Dr. Rios Downey Work Phone: [facility] 09-22-2023 16:45-0400 Heart rate 66 /min Dr. Rios Downey Work Phone: [facility] 09-22-2023 16:45-0400 Inhaled oxygen flow rate 5 L/min Dr. Rios Downey Work Phone: [facility] 09-22-2023 16:45-0400 Respiratory rate 18 /min Dr. Rios Downey Work Phone: [facility] 09-22-2023 16:45-0400 SaO2% (BldA) [Mass fraction] 95 % Dr. Rios Downey Work Phone: [facility] 09-22-2023 16:45-0400 Systolic blood pressure 143 mm[Hg] Dr. Rios Downey Work Phone: [facility] 09-22-2023 02:48-0400 Body mass index (BMI) [Ratio] 41.6 kg/m2 Dr. Rios Downey Work Phone: [facility] 09-22-2023 02:48-0400 Body weight 113.[address] Rios Downey Work Phone: [facility] 09-20-2023 22:50-0400 Inhaled oxygen concentration 30 % Dr. Rios Downey Work Phone: [facility] 09-17-2023 11:05-0400 Body height 165.[address] Rios Downey Work Phone: [facility] 09-16-2023 20:02-0400 Diastolic blood pressure 77 mm[Hg] Dr. Rios Downey Work Phone: [facility] 09-16-2023 20:02-0400 Heart rate 56 /min Dr. Rios Downey Work Phone: [facility] 09-16-2023 20:02-0400 Inhaled oxygen flow rate 6 L/min Dr. Rios Downey Work Phone: [facility] 09-16-2023 20:02-0400 Respiratory rate 14 /min Dr. Rios Downey Work Phone: [facility] 09-16-2023 20:02-0400 SaO2% (BldA) [Mass fraction] 99 % Dr. Rios Downey Work Phone: [facility] 09-16-2023 20:02-0400 Systolic blood pressure 144 mm[Hg] Dr. Rios Downey Work Phone: [facility] 09-16-2023 19:15-0400 Body temperature 96.6 [degF] Dr. Rios Downey Work Phone: [facility] 09-16-2023 16:12-0400 Body mass index (BMI) [Ratio] 43.5 kg/m2 Dr. Rios Downey Work Phone: [facility] 09-16-2023 16:12-0400 Body weight 118.[address] Rios Downey Work Phone: [facility] 09-16-2023 15:20-0400 Body height 165.[address] Rios Downey Work Phone: [facility] 08-31-2023 15:55-0400 Body temperature 96.9 [degF] Dr. Rios Downey Work Phone: [facility] 08-31-2023 15:55-0400 Diastolic blood pressure 83 mm[Hg] Dr. Rios Downey Work Phone: [facility] 08-31-2023 15:55-0400 Heart rate 60 /min Dr. Rios Downey Work Phone: [facility] 08-31-2023 15:55-0400 Inhaled oxygen flow rate 2 L/min Dr. Rios Downey Work Phone: [facility] 08-31-2023 15:55-0400 Respiratory rate 18 /min Dr. Rios Downey Work Phone: [facility] 08-31-2023 15:55-0400 SaO2% (BldA) [Mass fraction] 93 % Dr. Rios Downey Work Phone: [facility] 08-31-2023 15:55-0400 Systolic blood pressure 158 mm[Hg] Dr. Rios Downey Work Phone: [facility] 08-22-2023 15:36-0400 Body temperature 97.8 [degF] Dr. Rios Downey Work Phone: [facility] 08-22-2023 15:36-0400 Diastolic blood pressure 60 mm[Hg] Dr. Rios Downey Work Phone: [facility] 08-22-2023 15:36-0400 Heart rate 71 /min Dr. Rios Downey Work Phone: [facility] 08-22-2023 15:36-0400 Inhaled oxygen flow rate 3 L/min Dr. Rios Downey Work Phone: [facility] 08-22-2023 15:36-0400 Respiratory rate 16 /min Dr. Rios Downey Work Phone: [facility] 08-22-2023 15:36-0400 SaO2% (BldA) [Mass fraction] 100 % Dr. Rios Downey Work Phone: [facility] 08-22-2023 15:36-0400 Systolic blood pressure 124 mm[Hg] Dr. Rios Downey Work Phone: [facility] 08-22-2023 04:29-0400 Body mass index (BMI) [Ratio] 41.1 kg/m2 Dr. Rios Downey Work Phone: [facility] 08-22-2023 04:29-0400 Body weight 112.[address] Rios Downey Work Phone: [facility] 08-19-2023 11:06-0400 Body height 165.[address] Rios Downey Work Phone: [facility] 08-18-2023 16:35-0400 Diastolic blood pressure 52 mm[Hg] Dr. Rios Downey Work Phone: [facility] 08-18-2023 16:35-0400 Heart rate 61 /min Dr. Rios Downey Work Phone: [facility] 08-18-2023 16:35-0400 Respiratory rate 19 /min Dr. Rios Downey Work Phone: [facility] 08-18-2023 16:35-0400 SaO2% (BldA) [Mass fraction] 98 % Dr. Rios Downey Work Phone: [facility] 08-18-2023 16:35-0400 Systolic blood pressure 119 mm[Hg] Dr. Rios Downey Work Phone: [facility] 08-18-2023 15:00-0400 Body temperature 97.6 [degF] Dr. Rios Downey Work Phone: [facility] 08-18-2023 12:57-0400 Inhaled oxygen flow rate 4 L/min Dr. Rios Downey Work Phone: [facility] 08-18-2023 11:52-0400 Body height 165.[address] Rios Downey Work Phone: [facility] 08-18-2023 11:52-0400 Body mass index (BMI) [Ratio] 45.4 kg/m2 Dr. Rios Downey Work Phone: [facility] 08-18-2023 11:52-0400 Body weight 123.[address] Rios Downey Work Phone: [facility] 08-17-2023 17:59-0400 Body mass index (BMI) [Ratio] 39.9 kg/m2 Dr. Rios Downey Work Phone: [facility] 08-17-2023 17:59-0400 Body weight 108.[address] Rios Downey Work Phone: [facility] 08-17-2023 16:00-0400 Diastolic blood pressure 71 mm[Hg] Dr. Rios Downey Work Phone: [facility] 08-17-2023 16:00-0400 Heart rate 64 /min Dr. Rios Downey Work Phone: [facility] 08-17-2023 16:00-0400 Inhaled oxygen flow rate 4 L/min Dr. Rios Downey Work Phone: [facility] 08-17-2023 16:00-0400 Respiratory rate 16 /min Dr. Rios Downey Work Phone: [facility] 08-17-2023 16:00-0400 SaO2% (BldA) [Mass fraction] 99 % Dr. Rios Downey Work Phone: [facility] 08-17-2023 16:00-0400 Systolic blood pressure 117 mm[Hg] Dr. Rios Downey Work Phone: [facility] 08-16-2023 21:12-0400 Body temperature 98.2 [degF] Dr. Rios Downey Work Phone: [facility] 08-10-2023 20:37-0400 Inhaled oxygen flow rate 4 L/min Dr. Rios Downey Work Phone: [facility] 08-10-2023 20:37-0400 SaO2% (BldA) [Mass fraction] 92 % Dr. Rios Downey Work Phone: [facility] 08-10-2023 20:14-0400 Heart rate 81 /min Dr. Rios Downey Work Phone: [facility] 08-10-2023 20:14-0400 Respiratory rate 18 /min Dr. Rios Downey Work Phone: [facility] 08-10-2023 15:40-0400 Body temperature 97.3 [degF] Dr. Rios Downey Work Phone: [facility] 08-10-2023 15:40-0400 Diastolic blood pressure 74 mm[Hg] Dr. Rios Downey Work Phone: [facility] 08-10-2023 15:40-0400 Systolic blood pressure 147 mm[Hg] Dr. Rios Downey Work Phone: [facility] 08-10-2023 14:42-0400 Body height 165.[address] Rios Downey Work Phone: [facility] 08-10-2023 14:42-0400 Body weight 111.[address] Rios Downey Work Phone: [facility] 08-09-2023 06:00-0400 Body mass index (BMI) [Ratio] 40.8 kg/m2 Dr. Rios Downey Work Phone: [facility] 07-27-2023 07:09-0400 Inhaled oxygen flow rate 4 L/min Dr. Rios Downey Work Phone: [facility] 07-27-2023 07:09-0400 SaO2% (BldA) [Mass fraction] 99 % Dr. Rios Downey Work Phone: [facility] 07-27-2023 05:52-0400 Body mass index (BMI) [Ratio] 40.7 kg/m2 Dr. Rios Downey Work Phone: [facility] 07-27-2023 05:52-0400 Body weight 110.[address] Rios Downey Work Phone: [facility] 07-26-2023 16:00-0400 Body temperature 96.1 [degF] Dr. Rios Downey Work Phone: [facility] 07-26-2023 16:00-0400 Diastolic blood pressure 57 mm[Hg] Dr. Rios Downey Work Phone: [facility] 07-26-2023 16:00-0400 Heart rate 60 /min Dr. Rios Downey Work Phone: [facility] 07-26-2023 16:00-0400 Respiratory rate 16 /min Dr. Rios Downey Work Phone: [facility] 07-26-2023 16:00-0400 Systolic blood pressure 116 mm[Hg] Dr. Rios Downey Work Phone: [facility] 07-20-2023 16:11-0400 Body height 165.[address] Rios Downey Work Phone: [facility] 07-11-2023 11:29-0400 Inhaled oxygen flow rate 4 L/min Dr. Rios Downey Work Phone: [facility] 07-11-2023 10:49-0400 SaO2% (BldA) [Mass fraction] 98 % Dr. Rios Dwoney Work Phone: [facility] 07-10-2023 16:00-0400 Body temperature 96.9 [degF] Dr. Rios Downey Work Phone: [facility] 07-10-2023 16:00-0400 Diastolic blood pressure 66 mm[Hg] Dr. Rios Downey Work Phone: [facility] 07-10-2023 16:00-0400 Heart rate 68 /min Dr. Rios Downey Work Phone: [facility] 07-10-2023 16:00-0400 Respiratory rate 18 /min Dr. Rios Downey Work Phone: [facility] 07-10-2023 16:00-0400 Systolic blood pressure 159 mm[Hg] Dr. Rios Downey Work Phone: [facility] 07-09-2023 13:20-0400 Body mass index (BMI) [Ratio] 44.1 kg/m2 Dr. Rios Downey Work Phone: [facility] 07-09-2023 13:20-0400 Body weight 120.[address] Rios Downey Work Phone: [facility] 07-06-2023 15:30-0400 Body height 165.[address] Rios Downey Work Phone: [facility] 07-04-2023 19:55-0400 Inhaled oxygen concentration 92 % Dr. Rios Downey Work Phone: [facility] 07-03-2023 09:00-0400 Inhaled oxygen flow rate 4 L/min Dr. Rios Downey Work Phone: [facility] 07-03-2023 08:37-0400 Body temperature 97.8 [degF] Dr. Rios Downey Work Phone: [facility] 07-03-2023 08:37-0400 Diastolic blood pressure 75 mm[Hg] Dr. Rios Downey Work Phone: [facility] 07-03-2023 08:37-0400 Heart rate 60 /min Dr. Rios Downey Work Phone: [facility] 07-03-2023 08:37-0400 Respiratory rate 17 /min Dr. Rios Downey Work Phone: [facility] 07-03-2023 08:37-0400 SaO2% (BldA) [Mass fraction] 98 % Dr. Rios Downey Work Phone: [facility] 07-03-2023 08:37-0400 Systolic blood pressure 157 mm[Hg] Dr. Rios Downey Work Phone: [facility] 07-03-2023 04:47-0400 Body mass index (BMI) [Ratio] 44.1 kg/m2 Dr. Rios Downey Work Phone: [facility] 07-03-2023 04:47-0400 Body weight 120.[address] Rios Downey Work Phone: [facility] 07-01-2023 14:18-0400 Body height 165.[address] Rios Downey Work Phone: [facility] 06-29-2023 14:24-0400 Body temperature 97 [degF] [facility] 06-29-2023 14:24-0400 Diastolic blood pressure 63 mm[Hg] [facility] 06-29-2023 14:24-0400 Heart rate 66 /min [facility] 06-29-2023 14:24-0400 Inhaled oxygen flow rate 4 L/min [facility] 06-29-2023 14:24-0400 Respiratory rate 22 /min [facility] 06-29-2023 14:24-0400 SaO2% (BldA) [Mass fraction] 96 % [facility] 06-29-2023 14:24-0400 Systolic blood pressure 156 mm[Hg] [facility] 06-29-2023 12:55-0400 Body height 165.1 cm [facility] 06-29-2023 12:55-0400 Body mass index (BMI) [Ratio] 44.1 kg/m2 [facility] 06-29-2023 12:55-0400 Body weight 120.3 kg [facility] 01-31-2023 15:27-0500 Body height 165.[address] Jennifer Lu Work Phone: [facility] 01-31-2023 15:27-0500 Body mass index (BMI) [Ratio] 42.5 kg/m2 Dr. Jennifer Lu Work Phone: [facility] 01-31-2023 15:27-0500 Body weight 116.[address] Jennifer Lu Work Phone: [facility] 01-31-2023 15:27-0500 Diastolic blood pressure 78 mm[Hg] Dr. Jennifer Lu Work Phone: [facility] 01-31-2023 15:27-0500 Heart rate 74 /min Dr. Jennifer Lu Work Phone: [facility] 01-31-2023 15:27-0500 Inhaled oxygen flow rate 2 L/min Dr. Jennifer Lu Work Phone: [facility] 01-31-2023 15:27-0500 Respiratory rate 20 /min Dr. Jennifer Lu Work Phone: [facility] 01-31-2023 15:27-0500 Systolic blood pressure 129 mm[Hg] Dr. Jennifer Lu Work Phone: [facility] 10-07-2022 13:47-0500 Body height 165.[address] Jennifer Lu Work Phone: [facility] 10-07-2022 13:47-0500 Body mass index (BMI) [Ratio] 44.1 kg/m2 Dr. Jennifer Lu Work Phone: [facility] 10-07-2022 13:47-0500 Body temperature 98.4 [degF] Dr. Jennifer Lu Work Phone: [facility] 10-07-2022 13:47-0500 Body weight 120.[address] Jennifer Lu Work Phone: [facility] 10-07-2022 13:47-0500 Diastolic blood pressure 55 mm[Hg] Dr. Jennifer Lu Work Phone: [facility] 10-07-2022 13:47-0500 Heart rate 62 /min Dr. Jennifer Lu Work Phone: [facility] 10-07-2022 13:47-0500 Inhaled oxygen flow rate 2 L/min Dr. Jennifer Lu Work Phone: [facility] 10-07-2022 13:47-0500 Respiratory rate 16 /min Dr. Jennifer Lu Work Phone: [facility] 10-07-2022 13:47-0500 SaO2% (BldA) [Mass fraction] 99 % Dr. Jennifer Lu Work Phone: [facility] 10-07-2022 13:47-0500 Systolic blood pressure 112 mm[Hg] Dr. Jennifer Lu Work Phone: [facility] 07-12-2022 16:10-0400 Body height 165.[address] Jennifer Lu Work Phone: [facility] Work Phone: 07-12-2022 16:10-0400 Body temperature 97 [degF] Dr. Jennifer Lu Work Phone: [facility] Work Phone: 07-12-2022 16:10-0400 Diastolic blood pressure 58 mm[Hg] Dr. Jennifer Lu Work Phone: [facility] Work Phone: 07-12-2022 16:10-0400 Heart rate 61 /min Dr. Jennifer Lu Work Phone: [facility] Work Phone: 07-12-2022 16:10-0400 Inhaled oxygen flow rate 4 L/min Dr. Jennifer Lu Work Phone: [facility] Work Phone: 07-12-2022 16:10-0400 Respiratory rate 18 /min Dr. Jennifer Lu Work Phone: [facility] Work Phone: 07-12-2022 16:10-0400 SaO2% (BldA) [Mass fraction] 100 % Dr. Jennifer Lu Work Phone: [facility] Work Phone: 07-12-2022 16:10-0400 Systolic blood pressure 131 mm[Hg] Dr. Jennifer Lu Work Phone: [facility] Work Phone: 06-16-2022 15:14-0400 Heart rate 67 /min Dr. Jennifer Lu Work Phone: [facility] Work Phone: 06-16-2022 15:05-0400 Body mass index (BMI) [Ratio] 43.7 kg/m2 Dr. Jennifer Lu Work Phone: [facility] Work Phone: 06-16-2022 15:05-0400 Body weight 119.[address] Jennifer Lu Work Phone: [facility] Work Phone: 06-16-2022 15:05-0400 Diastolic blood pressure 64 mm[Hg] Dr. Jennifer Lu Work Phone: [facility] Work Phone: 06-16-2022 15:05-0400 Inhaled oxygen flow rate 4 L/min Dr. Jennifer Lu Work Phone: [facility] Work Phone: 06-16-2022 15:05-0400 Respiratory rate 20 /min Dr. Jennifer Lu Work Phone: [facility] Work Phone: 06-16-2022 15:05-0400 Systolic blood pressure 102 mm[Hg] Dr. Jennifer Lu Work Phone: [facility] Work Phone: 06-14-2022 15:09-0400 Body height 165.[address] Jennifer Lu Work Phone: [facility] Work Phone: 06-14-2022 15:09-0400 Body mass index (BMI) [Ratio] 44.7 kg/m2 Dr. Jennifer Lu Work Phone: [facility] Work Phone: 06-14-2022 15:09-0400 Body temperature 97.9 [degF] Dr. Jennifer Lu Work Phone: [facility] Work Phone: 06-14-2022 15:09-0400 Body weight 122.[address] Jennifer Lu Work Phone: [facility] Work Phone: 06-14-2022 15:09-0400 Diastolic blood pressure 39 mm[Hg] Dr. Jennifer Lu Work Phone: [facility] Work Phone: 06-14-2022 15:09-0400 Heart rate 56 /min Dr. Jennifer Lu Work Phone: [facility] Work Phone: 06-14-2022 15:09-0400 Inhaled oxygen flow rate 4 L/min Dr. Jennifer Lu Work Phone: [facility] Work Phone: 06-14-2022 15:09-0400 Respiratory rate 18 /min Dr. Jennifer Lu Work Phone: [facility] Work Phone: 06-14-2022 15:09-0400 SaO2% (BldA) [Mass fraction] 100 % Dr. Jennifer Lu Work Phone: [facility] Work Phone: 06-14-2022 15:09-0400 Systolic blood pressure 99 mm[Hg] Dr. Jennifer Lu Work Phone: [facility] Work Phone: 04-16-2022 13:16-0400 Inhaled oxygen flow rate 4 L/min Dr. Jennifer Lu Work Phone: [facility] Work Phone: 04-16-2022 13:16-0400 SaO2% (BldA) [Mass fraction] 95 % Dr. Jennifer Lu Work Phone: [facility] Work Phone: 04-16-2022 12:47-0400 Body height 165.[address] Jennifer Lu Work Phone: [facility] Work Phone: 04-16-2022 12:47-0400 Body mass index (BMI) [Ratio] 43.7 kg/m2 Dr. Jennifer Lu Work Phone: [facility] Work Phone: 04-16-2022 12:47-0400 Body temperature 97.5 [degF] Dr. Jennifer Lu Work Phone: [facility] Work Phone: 04-16-2022 12:47-0400 Body weight 119.[address] Jennifer Lu Work Phone: [facility] Work Phone: 04-16-2022 12:47-0400 Diastolic blood pressure 70 mm[Hg] Dr. Jennifer Lu Work Phone: [facility] Work Phone: 04-16-2022 12:47-0400 Heart rate 58 /min Dr. Jennifer Lu Work Phone: [facility] Work Phone: 04-16-2022 12:47-0400 Systolic blood pressure 110 mm[Hg] Dr. Jennifer Lu Work Phone: [facility] Work Phone: 03-15-2022 14:47-0400 Body height 165.[address] Jennifer Lu Work Phone: [facility] Work Phone: 03-15-2022 14:47-0400 Body mass index (BMI) [Ratio] 41.5 kg/m2 Dr. Jennifer Lu Work Phone: [facility] Work Phone: 03-15-2022 14:47-0400 Body temperature 97.9 [degF] Dr. Jennifer Lu Work Phone: [facility] Work Phone: 03-15-2022 14:47-0400 Body weight 113.[address] Jennifer Lu Work Phone: [facility] Work Phone: 03-15-2022 14:47-0400 Diastolic blood pressure 61 mm[Hg] Dr. Jennifer Lu Work Phone: [facility] Work Phone: 03-15-2022 14:47-0400 Heart rate 74 /min Dr. Jennifer Lu Work Phone: [facility] Work Phone: 03-15-2022 14:47-0400 Inhaled oxygen flow rate 4 L/min Dr. Jennifer Lu Work Phone: [facility] Work Phone: 03-15-2022 14:47-0400 Respiratory rate 20 /min Dr. Jennifer Lu Work Phone: [facility] Work Phone: 03-15-2022 14:47-0400 SaO2% (BldA) [Mass fraction] 100 % Dr. Jennifer Lu Work Phone: [facility] Work Phone: 03-15-2022 14:47-0400 Systolic blood pressure 128 mm[Hg] Dr. Jennifer Lu Work Phone: [facility] Work Phone: 12-07-2021 14:36-0500 Body mass index (BMI) [Ratio] 42.9 kg/m2 Dr. Jennifer Lu Work Phone: [facility] Work Phone: 12-07-2021 14:36-0500 Body weight 117.[address] Jennifer Lu Work Phone: [facility] Work Phone: 12-07-2021 14:36-0500 Diastolic blood pressure 72 mm[Hg] Dr. Jennifer Lu Work Phone: [facility] Work Phone: 12-07-2021 14:36-0500 Heart rate 49 /min Dr. Jennifer Lu Work Phone: [facility] Work Phone: 12-07-2021 14:36-0500 Systolic blood pressure 134 mm[Hg] Dr. Jennifer Lu Work Phone: [facility] Work Phone: Encounters Encounter Date Encounter Type Care Provider Facility Start: 06-20-2025 End: 06-20-2025 Dr. Christian Shook MD -[facility] Work Phone: Start: 06-20-2025 End: 06-20-[address] Rios Downey DO Work Phone: -[facility] Start: 06-19-2025 End: 06-19-[address] Pepe Au MD -[facility] Work Phone: Start: 06-19-2025 End: 06-19-2025 Dr. Pepe Au MD -[facility] Work Phone: Start: 06-19-2025 End: 06-19-[address] Rios Downey DO Work Phone: -[facility] Start: 06-13-2025 End: 06-13-2025 Patient encounter procedure Gosia Saenz FIRE PATROLLER-C -[facility] Work Phone: Start: 06-13-2025 End: 06-13-2025 Gosia Saenz FIRE PATROLLER-C -[facility] Work Phone: Start: 06-13-2025 End: 06-13-[address] Rios Downey DO Work Phone: -[facility] Start: 05-31-2025 End: 06-01-2025 Dr[facility] Start: 05-31-2025 End: 06-01-2025 Emergency department patient visit Dr. Rios Downey DO Work Phone: -Emergency Department Work Phone: Start: 05-22-2025 End: 05-22-[address] Pepe Au MD -[facility] Work Phone: Start: 05-22-2025 End: 05-22-2025 Dr. Pepe Au MD -[facility] Work Phone: Start: 05-22-2025 End: 05-22-[address] Rios Downey DO Work Phone: [facility] Work Phone: Start: 04-25-2025 End: 04-25-[address] Pepe Au MD -[facility] Work Phone: Start: 04-25-2025 End: 04-25-2025 Dr. Pepe Au MD -[facility] Work Phone: Start: 04-25-2025 End: 04-25-[address] Rios Downye DO Work Phone: [facility] Work Phone: Start: 04-15-2025 End: 04-15-[address] Pepe Au MD -Laboratory [facility] Work Phone: Start: 04-15-2025 End: 04-15-2025 Dr. Pepe Au MD -Laboratory [facility] Work Phone: Start: 04-15-2025 End: 04-15-2025 ambulatory Pepe Au Facility:[facility] Start: 03-28-2025 End: 03-28-[address] Pepe Au MD -[facility] Work Phone: Start: 03-28-2025 End: 03-28-2025 Dr. Pepe Au MD -[facility] Work Phone: Start: 03-28-2025 End: 03-28-20[facility] Start: 03-14-2025 End: 03-14-2025 Patient encounter procedure Gosia Saenz FIRE PATROLLER-C -[facility] Work Phone: Start: 03-14-2025 End: 03-14-2025 Gosia Saenz FIRE PATROLLER-C -[facility] Work Phone: Start: 03-14-2025 End: 03-14-2025 ambulatory Rios Downey Facility:[facility] Start: 02-26-2025 End: 02-26-[address] Pepe Au MD -[facility] Work Phone: Start: 02-26-2025 End: 02-26-2025 Dr. Pepe Au MD -[facility] Work Phone: Start: 02-26-2025 End: 02-26-[address] Rios Downey DO Work Phone: [facility] Work Phone: Start: 01-29-2025 End: 01-29-[address] Pepe Au MD -[facility] Work Phone: Start: 01-29-2025 End: 01-29-2025 ambulatory [facility] Facility:[facility] Start: 01-01-2025 End: 01-01-[address] Pepe Au MD -[facility] Out Work Phone: Start: 01-01-2025 End: 01-01-2025 ambulatory [facility] Facility:[facility] Start: 12-04-2024 End: 12-04-[address] Pepe Au MD -[facility] Out Work Phone: Start: 12-04-2024 End: 12-04-2024 [facility] Start: 11-07-2024 Encounter for genera l adult medical examination without abnormal findings [facility] Start: 10-31-2024 End: 10-31-[address] Pepe Au MD -[facility] Work Phone: Start: 10-31-2024 End: 10-31-2024 [facility] Start: 10-22-2024 End: 10-22-2024 ambulatory Toñito Espino Facility:[facility] Start: 10-15-2024 End: 10-15-2024 ambulatory [facility] Facility:[facility] Start: 10-10-2024 ambulatory [facility] Facility: [facility] Start: 10-10-2024 End: 10-10-2024 ambulatory [facility] Facility:[facility] Start: 10-02-2024 End: 10-02-2024 ambulatory Rios Downey Facility:[facility] Start: 09-24-2024 End: 09-24-2024 ambulatory Rios Downey Facility:[facility] Start: 08-30-2024 End: 08-30-2024 ambulatory Rios Maloneins Facility:[facility] Start: 08-02-2024 End: 08-02-2024 ambulatory Rios Downey Facility:[facility] Start: 07-04-2024 End: 07-04-2024 ambulatory Rios Downey Facility:[facility] Start: 03-23-2024 End: 03-23-[address] Rios Downey Work Phone: [facility] Work Phone: Start: 03-22-2024 End: 03-22-[address] Rios Downey Work Phone: [facility] Work Phone: Start: 03-22-2024 End: 03-22-[address] Rios Downey Work Phone: [facility] Work Phone: Start: 03-14-2024 End: 03-14-2024 ambulatory [facility] Work Phone: Start: 03-14-2024 End: 03-14-2024 Patient encounter procedure [facility] Work Phone: Start: 02-19-2024 End: 02-19-2024 Emergency department patient visit [facility] Work Phone: Start: 02-15-2024 End: 02-16-2024 Emergency department patient visit [facility] Work Phone: Start: 02-15-2024 End: 02-15-2024 ambulatory [facility] Work Phone: Start: 02-15-2024 End: 02-15-2024 Patient encounter procedure [facility] Work Phone: Start: 01-18-2024 End: 01-18-[address] Rios Downey Work Phone: [facility] Work Phone: Start: 01-18-2024 End: 01-18-[address] Rios Downey Work Phone: [facility] Work Phone: Start: 12-21-2023 End: 12-21-[address] Rios Downey Work Phone: [facility] Work Phone: Start: 12-02-2023 End: 12-02-[address] Rios Downey Work Phone: [facility] Work Phone: Start: 11-23-2023 End: 11-23-[address] Rios Downey Work Phone: [facility] Work Phone: Start: 11-23-2023 End: 11-23-[address] [facility] Dow[facility] Start: 11-23-2023 End: 11-23-2023 Dr. Rios Downey Work Phone: [facility] Work Phone: Start: 10-26-2023 End: 10-26-[address] Rios Downey Work Phone: [facility] Work Phone: Start: 10-26-2023 End: 10-26-[address] Rios Downey [facility] Start: 10-26-2023 End: 10-26-2023 Dr. Rios Downey Work Phone: [facility] Work Phone: Start: 10-05-2023 End: 10-05-[address] Rios Downey Work Phone: [facility] Work Phone: Start: 10-05-2023 End: 10-05-2023 Dr. Rios Downey Work Phone: [facility] Work Phone: Start: 09-28-2023 End: 09-28-[address] Rios Downey Work Phone: [facility] Work Phone: Start: 09-28-2023 End: 09-28-[address] Rios Downey Work Phone: [facility] Work Phone: Start: 09-28-2023 End: 09-28-2023 Dr. Rios Downey Work Phone: [facility] Work Phone: Start: 09-22-2023 Non-patient / Non-visit Dr. Carlos Downey Work Phone: [facility] Work Phone: Start: 09-22-2023 Dr. Rios winters Work Phone: [facility] Work Phone: Start: 09-22-2023 Non-patient / Non-visit Dr. Carlos Downey Work Phone: [facility] Start: 09-22-2023 Dr. Rios winters Work Phone: [facility] Start: 09-21-2023 Non-patient / Non-visit Dr. Carlos Downey Work Phone: [facility] Work Phone: Start: 09-21-2023 Dr. Rios winters Work Phone: [facility] Work Phone: Start: 09-21-2023 Non-patient / Non-visit Dr. Carlos Downey Work Phone: [facility] Start: 09-21-2023 Dr. Rios Malone ins Work Phone: [facility] Start: 09-20-2023 Dr. Rios Malone ins Work Phone: [facility] Start: 09-20-2023 Dr. Rios Malone ins Work Phone: [facility] Work Phone: Start: 09-19-2023 Dr. Rios Malone ins Work Phone: [facility] Work Phone: Start: 09-18-2023 Dr. Rios Malone ins Work Phone: [facility] Work Phone: Start: 09-17-2023 Dr. Rios Malone ins Work Phone: [facility] Work Phone: Start: 09-16-2023 End: 09-22-2023 Evaluation and management of inpatient Dr. Rios Downey Work Phone: [facility] Work Phone: Start: 09-16-2023 End: 09-22-2023 Dr. Rios Downey Work Phone: [facility]-Progressive Care Unit Work Phone: Start: 08-31-2023 End: 08-31-2023 Dr. Rios Downey Work Phone: [facility]-Emergency Department Work Phone: Start: 08-22-2023 Dr. Riso Malone ins Work Phone: [facility] Work Phone: Start: 08-21-2023 Dr. Rios winters Work Phone: [facility] Work Phone: Start: 08-20-2023 Dr. Rios winters Work Phone: [facility] Work Phone: Start: 08-19-2023 Dr. Rios Malone ins Work Phone: [facility] Work Phone: Start: 08-18-2023 Evaluation and management of inpatient Dr. Rios Downey Work Phone: [facility] Work Phone: Start: 08-18-2023 End: 08-22-2023 Evaluation and management of inpatient Dr. Rios Downey Work Phone: [facility] Work Phone: Start: 08-18-2023 End: 08-22-2023 Dr. Rios Downey [facility] Work [facility] Start: 08-18-2023 Dr. Rios winters Work Phone: [facility]-Emergency Department Work Phone: Start: 08-06-2023 End: 08-06-[address] Rios Downey Work Phone: [facility] Work Phone: Start: 08-06-2023 End: 08-06-[address] Rios Downey Work Phone: [facility], [facility] Work Phone: Start: 08-06-2023 End: 08-06-2023 Dr. Rios Downey Work Phone: [facility], [facility] Work Phone: Start: 07-23-2023 End: 07-23-[address] Rios Downey [facility] Work Phone: Start: 07-23-2023 End: 07-23-2023 Dr. Rios Downey Work Phone: [facility] Work Phone: Start: 07-22-2023 End: 07-22-[address] Rios Downey Work Phone: [facility] Work Phone: Start: 07-22-2023 End: 07-22-[address] Rios Downey Work Phone: [facility] - [facility] Work Phone: Start: 07-22-2023 End: 07-22-2023 Dr. Rios Downey Work Phone: [facility] - [facility] Work Phone: Start: 07-06-2023 End: 07-06-[address] Rios Downey Work Phone: [facility] Work Phone: Start: 07-06-2023 End: 07-06-[address] Rios Downey Work Phone[facility] Work Phone: Start: 07-06-2023 End: 07-06-2023 Dr. Rois Downey Work Phone: [facility] Work Phone: Start: 07-03-2023 End: 08-18-2023 Evaluation and management of inpatient Dr. Rios Downey Work Phone: [facility]-Transitional Care Unit Start: 07-03-2023 End: 08-18-2023 Dr. Rios Downey [facility] Start: 07-03-2023 Non-patient / Non-visit Dr. Carlos Downey Work Phone: [facility] Work Phone: Start: 07-03-2023 Dr. Rios winters Work Phone: [facility] Work Phone: Start: 07-02-2023 Non-patient / Non-visit Dr. Carlos Downey Work Phone: [facility] Work Phone: Start: 07-02-2023 Dr. Rios winters Work Phone: [facility] Work Phone: Start: 07-01-2023 Non-patient / Non-visit Dr. Carlos Downey Work Phone: [facility] Work Phone: Start: 07-01-2023 Dr. Rios winters Work Phone: [facility] Work Phone: Start: 06-30-2023 Non-patient / Non-visit Dr. Carlos Downey Work Phone: [facility] Work Phone: Start: 06-30-2023 Dr. Rios winters Work Phone: [facility] Work Phone: Start: 06-30-2023 End: 07-03-2023 Evaluation and management of inpatient Dr. Rios Downey [facility] Work [facility]: Start: 06-30-2023 End: 07-03-2023 Dr. Rios Downey [facility] Phone[facility] Work [facility]: Start: 06-30-2023 Non-patient / Non-visit Dr. Carlos Downey Work Phone: [facility] Start: 06-30-2023 Dr. Rios winters Work Phone: [facility] Start: 06-29-2023 Non-patient / Non-visit Dr. Carlos Downey Work Phone: [facility] Start: 06-29-2023 Dr. Rios winters Work Phone: [facility] Start: 06-29-2023 Non-patient / Non-visit Dr. Carlos Downey Work Phone: [facility] Work Phone: Start: 06-29-2023 Dr. Rios winters Work Phone: [facility] Work Phone: Start: 06-29-2023 Evaluation and management of inpatient [facility] Work Phone: Start: 06-29-2023 observation encounter [facility] Work Phone: Start: 06-13-2023 End: 06-13-2023 ambulatory [facility] Work Phone: Start: 06-13-2023 End: 06-13-2023 Patient encounter procedure [facility] Work Phone: Start: 06-13-2023 End: 06-13-2023 Dr. Rios Downey Work Phone: [facility] Work Phone: Start: 05-26-2023 End: 05-26-2023 ambulatory [facility] Work Phone: Start: 05-26-2023 End: 05-26-2023 Patient encounter procedure [facility] Work Phone: Start: 05-26-2023 End: 05-26-2023 Dr. Rios Downey Work Phone: [facility] Work Phone: Start: 05-16-2023 End: 05-16-[address] Rios Downey Work Phone: [facility] Work Phone: Start: 05-16-2023 End: 05-16-[address] Rios Downey Work Phone: [facility] Start: 05-16-2023 End: 05-16-2023 Dr. Rios Downey Work Phone: [facility] Work Phone: Start: 05-12-2023 End: 05-17-2023 ambulatory RIOS DOWNEY DO Facility:[facility] Start: 05-12-2023 End: 05-16-2023 Outreach Lab JENNIFER LU MD [facility] Start: 04-18-2023 End: 04-18-[address] Rios Downey Work Phone: [facility] Start: 04-18-2023 End: 04-18-2023 Dr. Rios Downey Work Phone: [facility] Work Phone: Start: 03-21-2023 End: 03-21-[address] Rios Downey Work Phone: [facility] Work Phone: Start: 03-21-2023 End: 03-21-[address] Rios Downey Work Phone: [facility] Start: 03-21-2023 End: 03-21-2023 Dr. Rios Downey Work Phone: [facility] Work Phone: Start: 02-21-2023 End: 02-21-[address] Rios Downey Work Phone: [facility] Work Phone: Start: 02-21-2023 End: 02-21-[address] Rios Downey Work Phone: [facility] Start: 01-31-2023 End: 01-31-[address] Jennifer Lu Work Phone: [facility] Work Phone: Start: 01-31-2023 End: 01-31-[address] Jennifer Lu Work Phone: [facility] Start: 01-31-2023 End: 01-31-[address] Jennifer Lu Work Phone: [facility] Start: 01-24-2023 End: 01-24-[address] Jennifer Lu Work Phone: [facility] Work Phone: Start: 01-24-2023 End: 01-24-[address] Jennifer [facility] Start: 12-28-2022 End: 12-28-[address] Jennifer Lu Work Phone: [facility] Work Phone: Start: 12-28-2022 End: 12-28-[address] Jennifer Lu [facility] Start: 12-02-2022 End: 12-02-[address] Jennifer Lu Work Phone: [facility] Work Phone: Start: 12-02-2022 End: 12-02-[address] Jennifer Lu [facility] Start: 11-24-2022 End: 11-24-[address] Jennifer Lu Work Phone: [facility] Start: 11-01-2022 End: 11-01-[address] Jennifer Lu Work Phone: [facility] Work Phone: Start: 11-01-2022 End: 11-01-[address] Jennifer Lu [facility] Start: 10-07-2022 End: 10-07-[address] Jennifer Lu [facility] Start: 10-04-2022 End: 10-04-[address] Jennifer Lu [facility] Start: 09-29-2022 End: 09-29-[address] Jennifer Lu Work Phone: [facility] Work Phone: Start: 09-29-2022 End: 09-29-[address] Jennifer Lu Work Phone: [facility] Start: 09-06-2022 End: 09-06-[address] Jennifer Lu Work Phone: [facility] Work Phone: Start: 09-06-2022 End: 09-06-[address] Jennifer Lu [facility] Start: 08-27-2022 End: 08-27-[address] Jennifer Lu Work Phone: [facility] Work Phone: Start: 08-27-2022 End: 08-27-[address] Jennifer Lu Work Phone: [facility] Start: 08-09-2022 End: 08-09-[address] Jennifer Lu Work Phone: [facility] Work Phone: Start: 08-09-2022 End: 08-09-[address] [facility] Start: 07-16-2022 End: 07-16-[address] Jennifer Lu Work Phone: [facility] Work Phone: Start: 07-16-2022 End: 07-16-[address] Jennifer Lu Work Phone: [facility] Start: 07-12-2022 End: 07-12-[address] [facility] Lu [facility] Start: 07-09-2022 End: 07-09-[address] Jennifer Lu Work Phone: [facility] Start: 06-18-2022 End: 06-18-[address] Jennifer Lu Work Phone: [facility] Start: 06-16-2022 End: 06-16-[address] Jennifer Lu Work Phone: [facility] Start: 06-14-2022 End: 06-14-[address] [facility] Start: 05-18-2022 End: 05-18-[address] Jennifer Lu Work Phone: [facility] Start: 05-17-2022 End: 05-17-[address] [facility] Lu [facility] Start: 04-16-2022 End: 04-16-[address] [facility] Lu [facility] Start: 04-12-2022 End: 04-12-2022 [facility] Start: 03-29-2022 End: 03-29-[address] Jennifer Lu Work Phone: [facility] Start: 03-15-2022 End: 03-15-[address] Jennifer Lu Work Phone: [facility] Start: 02-15-2022 End: 02-15-[address] Jennifer Lu Work Phone: [facility] Start: 01-25-2022 End: 01-25-[address] Jennifer Lu Work Phone: [facility] Start: 01-18-2022 End: 01-18-[address] Jennifer Lu Work Phone: [facility] Start: 12-21-2021 End: 12-21-[address] Jennifer Lu Work Phone: [facility] Start: 12-07-2021 End: 12-07-[address] Jennifer Lu Work Phone: [facility] Procedures Date Procedure [...] Phone: Start: 08-22-[address] Riso Downey Work Phone: Start: 08-19-2023 MRI of [...] Date Care Activity Detail Author Start: 06-01-2025 [facility] Start: 05-31-2025 End: 05-31-2025 [facility] Start: 02-19-2024 [facility] Start: 02-16-2024 [facility] Start: 09-28-2023 [facility] Start: 09-28-2023 Ther proph/dx njx iv push single/1st sbst/drug [facility] Start: 09-22-2023 Patient discharge [facility] Start: 09-20-2023 Dual pressure sponta neous ventilation support [facility] Start: 09-20-2023 Consultation [facility] Start: 09-20-2023 Referral to service [facility] Start: 09-18-2023 End: 09-19-2023 [facility] Start: 09-18-2023 [facility] Start: 09-16-2023 Dual pressure sponta neous ventilation support [facility] Start: 09-16-2023 Following clinical p athway protocol [facility] Start: 09-16-2023 Application of elastic bandage [facility] Start: 09-16-2023 Assessment of risk o f venous thromboembolism [facility] Start: 09-16-2023 Care regimes management [facility] Start: 09-16-2023 Continuous pulse oximetry [facility] Start: 09-16-2023 Elevation of affected extremity [facility] Start: 09-16-2023 Fall prevention [facility] Start: 09-16-2023 Inhalation therapy procedure [facility] Start: 09-16-2023 Insertion of cathete r into peripheral vein [facility] Start: 09-16-2023 Introduction of urinary catheter [facility] Start: 09-16-2023 Measuring intake and output [facility] Start: 09-16-2023 Notification of physician [facility] Start: 09-16-2023 Oxygen therapy [facility] Start: 09-16-2023 Patient education [facility] Start: 09-16-2023 Providing care accor ding to standard [facility] Start: 09-16-2023 Provision of activity privileges [facility] Start: 09-16-2023 Referral to occupati onal therapist [facility] Start: 09-16-2023 Referral to service [facility] Start: 09-16-2023 SARS-CoV-2 [facility] Start: 09-16-2023 End: 09-16-2023 [facility] Start: 09-16-2023 Verification routine [facility] Start: 09-16-2023 Admission procedure [facility] Start: 09-16-2023 Hospital admission, emergency, from emergency room, medical nature [facility] Start: 08-22-2023 Patient discharge [facility] Start: 08-21-2023 [facility] Start: 08-19-2023 Development of care plan [facility] Start: 08-19-2023 [facility] Start: 08-18-2023 Aspiration precautions [facility] Start: 08-18-2023 Assessment of risk o f venous thromboembolism [facility] Start: 08-18-2023 Cardiac monitoring [facility] Start: 08-18-2023 Care regimes management [facility] Start: 08-18-2023 Catheterization of vein [facility] Start: 08-18-2023 Continuous pulse oximetry [facility] Start: 08-18-2023 Elevation of head of bed [facility] Start: 08-18-2023 Exercises [facility] Start: 08-18-2023 Fall prevention [facility] Start: 08-18-[address] anned interventions [facility] Start: 08-18-2023 Inhalation therapy procedure [facility] Start: 08-18-2023 Insertion of cathete r into peripheral vein [facility] Start: 08-18-2023 Introduction of urinary catheter [facility] Start: 08-18-2023 Measuring intake and output [facility] Start: 08-18-2023 Notification of physician [facility] Start: 08-18-2023 Oxygen therapy [facility] Start: 08-18-2023 Patient referral to dietitian [facility] Start: 08-18-2023 Providing care accor ding to standard [facility] Start: 08-18-2023 Provision of activity privileges [facility] Start: 08-18-2023 Referral to occupati onal therapist [facility] Start: 08-18-2023 Referral to service [facility] Start: 08-18-2023 Speech therapy assessment [facility] Start: 08-18-2023 Tobacco use cessation education [facility] Start: 08-18-2023 [facility] Start: 08-18-2023 Vital signs measurements [facility] Start: 08-18-2023 Dual pressure sponta neous ventilation support [facility] Start: 08-18-2023 Verification routine [facility] Start: 08-18-2023 Gas panel - Arterial blood [facility] Start: 08-18-2023 Admission procedure [facility] Start: 08-18-2023 Oxygen therapy [facility] Start: 08-18-2023 [facility] Start: 08-18-2023 Wound care [facility] Start: 08-18-2023 Patient discharge [facility] Start: 08-18-2023 [facility] Start: 08-14-2023 SARS-CoV-2 (COVID-19 ) Ag [Presence] in Respiratory specimen by Rapid immunoassay [facility] Start: 08-13-2023 [facility] Start: 08-12-2023 SARS-CoV-2 (COVID-19 ) Ag [Presence] in Respiratory specimen by Rapid immunoassay [facility] Start: 08-02-2023 Speech therapy management [facility] Start: 08-01-2023 Wound care [facility] Start: 08-01-2023 Blood chemistry [facility] Start: 08-01-2023 Continuous positive airway pressure ventilation treatment [facility] Start: 07-31-2023 [facility] Start: 07-29-2023 Developing a treatment plan [facility] Start: 07-29-2023 Development of care plan [facility] Start: 07-27-2023 [facility] Start: 07-25-2023 Blood chemistry [facility] Start: 07-18-2023 Blood chemistry [facility] Start: 07-12-2023 Verification routine [facility] Start: 07-08-2023 Referral to construction ironworker helper [facility] Start: 07-07-2023 Wound care [facility] Start: 07-06-2023 Wound care [facility] Start: 07-04-2023 Development of care plan [facility] Start: 07-04-2023 Speech therapy management [facility] Start: 07-04-2023 Verification routine [facility] Start: 07-04-2023 Developing a treatment plan [facility] Start: 07-03-2023 End: 07-04-2023 [facility] Start: 07-03-2023 Consultation for treatment [facility] Start: 07-03-2023 Speech therapy assessment [facility] Start: 07-03-2023 Wound care [facility] Start: 07-03-2023 Seizure precautions [facility] Start: 07-03-2023 Following clinical p athway protocol [facility] Start: 07-03-2023 Oxygen therapy [facility] Start: 07-03-2023 Admission procedure [facility] Start: 07-03-2023 Measuring intake and output [facility] Start: 07-03-2023 Patient referral to dietitian [facility] Start: 07-03-2023 Referral to occupati onal therapist [facility] Start: 07-03-2023 Referral to service [facility] Start: 07-03-2023 Vital signs measurements [facility] Start: 07-03-2023 Patient discharge [facility] Start: 07-03-2023 Patient referral to dietitian [facility] Start: 07-03-2023 Speech therapy assessment [facility] Start: 07-03-2023 [facility] Start: 07-01-2023 [facility] Start: 06-30-2023 Admission procedure [facility] Start: 06-30-2023 Thyroid stimulating hormone measurement [facility] Start: 06-29-2023 Ambulation without limitation [facility] Start: 06-29-2023 Assessment of risk o f venous thromboembolism [facility] Start: 06-29-2023 Cardiac monitoring [facility] Start: 06-29-2023 Catheterization of vein [facility] Start: 06-29-2023 Continuous pulse oximetry [facility] Start: 06-29-2023 Elevation of head of bed [facility] Start: 06-29-2023 Exercises [facility] Start: 06-29-[address] anned interventions [facility] Start: 06-29-2023 Insertion of cathete r into peripheral vein [facility] Start: 06-29-2023 Measuring intake and output [facility] Start: 06-29-2023 Notification of physician [facility] Start: 06-29-2023 Oxygen therapy [facility] Start: 06-29-2023 Providing care accor ding to standard [facility] Start: 06-29-2023 Referral to occupati onal therapist [facility] Start: 06-29-2023 Referral to service [facility] Start: 06-29-2023 Speech therapy assessment [facility] Start: 06-29-2023 Tobacco use cessation education [facility] Start: 06-29-2023 Following clinical p athway protocol [facility] Start: 06-29-2023 End: 06-29-2023 [facility] Start: 06-29-2023 Verification routine [facility] Start: 06-29-2023 Admission procedure [facility] Start: 06-29-2023 Gas panel - Venous blood [facility] Start: 06-29-2023 Oxygen therapy [facility] Start: 06-29-2023 [facility] Start: 01-31-2023 [facility] Anion gap measurement [facility] Anion gap measurement [facility] Anion gap measurement [facility] Bilirubin measurement, urine [facility] BUN/Creatinine ratio [facility] BUN/Creatinine ratio [facility] BUN/Creatinine ratio [facility] Calcium [Mass/volume ] in Serum or Plasma [facility] Calcium [Mass/volume ] in Serum or Plasma [facility] Calcium [Mass/volume ] in Serum or Plasma [facility] Carbon dioxide, tota l [Moles/volume] in Serum or Plasma [facility] Carbon dioxide, tota l [Moles/volume] in Serum or Plasma [facility] Carbon dioxide, tota l [Moles/volume] in Serum or Plasma [facility] Chloride [Moles/volu me] in Serum or Plasma [facility] Chloride [Moles/volu me] in Serum or Plasma [facility] Chloride [Moles/volu me] in Serum or Plasma [facility] Creatinine [Moles/vo lume] in Serum or Plasma [facility] Creatinine [Moles/vo lume] in Serum or Plasma [facility] Creatinine [Moles/vo lume] in Serum or Plasma [facility] Glucose [Mass/volume ] in Serum or Plasma [facility] Glucose [Mass/volume ] in Serum or Plasma [facility] Glucose [Mass/volume ] in Serum or Plasma [facility] Hematocrit [Volume F raction] of Blood [facility] Hematocrit [Volume F raction] of Blood [facility] Hematocrit [Volume F raction] of Blood [facility] Hemoglobin [Mass/volume] in Blood [facility] Hemoglobin [Mass/volume] in Blood [facility] Hemoglobin [Mass/volume] in Blood [facility] Hemoglobin [Presence] in Urine [facility] Leukocytes [#/volume] in Blood [facility] Leukocytes [#/volume] in Blood [facility] Leukocytes [#/volume] in Blood [facility] Magnesium [Mass/volu me] in Serum or Plasma [facility] Mean corpuscular hem oglobin concentration determination [facility] Mean corpuscular hem oglobin concentration determination [facility] Mean corpuscular hem oglobin concentration determination [facility] Mean corpuscular hem oglobin determination [facility] Mean corpuscular hem oglobin determination [facility] Mean corpuscular hem oglobin determination [facility] Measurement of keton es in urine using dipstick [facility] Measurement of renal function [facility] Measurement of renal function [facility] Measurement of renal function [facility] Microscopic urinalysis [facility] Neutrophil [facility] Neutrophil [facility] Neutrophil count [facility] Neutrophil percent d ifferential count [facility] Neutrophil percent d ifferential count [facility] Neutrophil percent d ifferential count [facility] Patient Education [facility] Work Phone: Patient referral [facility] Work Phone: pH of Urine [facility] Platelets [#/volume] in Blood [facility] Platelets [#/volume] in Blood [facility] Platelets [#/volume] in Blood [facility] Potassium [Moles/vol ume] in Serum or Plasma [facility] Potassium [Moles/vol ume] in Serum or Plasma [facility] Potassium [Moles/vol ume] in Serum or Plasma [facility] Red blood cell count [facility] Red blood cell count [facility] Red blood cell count [facility] Red cell distributio n width determination [facility] Red cell distributio n width determination [facility] Red cell distributio n width determination [facility] Respiratory pathogen s DNA and RNA panel - Respiratory specimen by ELIANE with probe detection [facility] Sodium [Moles/volume ] in Serum or Plasma [facility] Sodium [Moles/volume ] in Serum or Plasma [facility] Sodium [Moles/volume ] in Serum or Plasma [facility] Specific gravity of Urine [facility] Urea nitrogen [Mass/ volume] in Serum or Plasma [facility] Urea nitrogen [Mass/ volume] in Serum or Plasma [facility] Urea nitrogen [Mass/ volume] in Serum or Plasma [facility] Urinalysis, blood, qualitative [facility] Urine dipstick for glucose [facility] Urine dipstick for l eukocyte esterase [facility] Urine dipstick for nitrite [facility] Urine dipstick for protein [facility] Urine examination [facility] Urine microscopy: ep ithelial cells [facility] Urine Microscopy: white cells [facility] Urobilinogen [Presence] in Urine [facility] Immunizations Immunization Date Immunization Notes Care Provider [facility] 08-31-2023 tetanus toxoid, redu steph diphtheria toxoid, and acellular pertussis vaccine, adsorbed Dr. Rios Downey Work Phone: [facility] 07-12-2023 Covid Moderna Bivale nt Booster Dr. Rios Downey Work Phone: [facility] 10-06-2022 influenza, high dose seasonal, preservative-free JENNIFER LU MD [facility] 10-06-2022 Influenza, high dose seasonal Dr. Rios Downey DO Work Phone: [facility] 03-16-2022 COVID-19, mRNA, LNP- S, PF, 100 mcg or 50 mcg dose; Translations: [Moderna COVID-19 Vaccine] JENNIEFR LU MD [facility] 12-03-2021 COVID-19, mRNA, LNP- S, PF, 100 mcg or 50 mcg dose; Translations: [Moderna COVID-19 Vaccine] JENNIFER LU MD [facility] 09-17-2021 influenza, high dose seasonal, preservative-free; Translations: [Fluad Quadrivalent PF ] JENNIFER LU MD [facility] 09-17-2021 Influenza, high dose seasonal Dr. Rios Downey DO Work Phone: [facility] 01-20-2021 COVID-19, mRNA, LNP- S, PF, 100 mcg or 50 mcg dose; Translations: [Moderna COVID-19 Vaccine] JENNIFER LU MD [facility] 12-25-2020 SARS-CoV-2 (COVID-19 ) mRNA-1273 vaccine JENNIFER LU MD [facility] 08-15-2020 influenza, injectabl e, quadrivalent, preservative free; Translations: [Fluarix PF Quadrivalent ] JENNIFER LU MD [facility] 08-15-2020 influenza, seasonal, injectable Dr. Rios Downey Work Phone: [facility] 09-13-2019 influenza, injectabl e, quadrivalent, preservative free; Translations: [Fluarix PF Quadrivalent ] JENNIFER LU MD [facility] 09-13-2019 influenza, seasonal, injectable Dr. Rios Downey Work Phone: [facility] 08-28-[address] Jennifer Lu Work Phone: [facility] 09-04-2018 influenza virus vacc ine, unspecified formulation JENNIFER LU MD [facility] 09-04-2018 influenza, injectabl e, quadrivalent, preservative free Dr. Rios Downey Work Phone: [facility] 09-04-2018 influenza, seasonal, injectable Dr. Rios Downey Work Phone: [facility] 09-21-2017 influenza virus vacc ine, unspecified formulation JENNIFER LU MD [facility] 09-21-2017 influenza, injectabl e, quadrivalent, preservative free Dr. Rios Downey Work Phone: [facility] 09-21-2017 influenza, seasonal, injectable Dr. Rios Downey Work Phone: [facility] 08-22-2017 influenza, injectabl e, quadrivalent, preservative free Dr. Rios Downey Work Phone: [facility] 08-22-2017 influenza, seasonal, injectable Dr. Jennifer Lu Work Phone: [facility] 08-24-[address] Jennifer Lu Work Phone: [facility] 08-24-2016 influenza virus vacc ine, unspecified formulation JENNIFER LU MD [facility] 08-24-2016 influenza, injectabl e, quadrivalent, preservative free Dr. Rios Downey Work Phone: [facility] 08-24-2016 influenza, seasonal, injectable Dr. Rios Downey Work Phone: [facility] 07-29-2016 influenza virus vacc ine, unspecified formulation JENNIFER LU MD [facility] 07-29-2016 influenza, injectabl e, quadrivalent, preservative free Dr. Rios Downey Work Phone: [facility] 07-29-2016 influenza, seasonal, injectable Dr. Rios Downey Work Phone: [facility] 10-03-2015 influenza virus vacc ine, unspecified formulation JENNIFER LU MD [facility] 10-03-2015 influenza, injectabl e, quadrivalent, preservative free Dr. Rios Downey Work Phone: [facility] 10-03-2015 influenza, seasonal, injectable Dr. Rios Downey Work Phone: [facility] 09-11-2015 influenza, injectabl e, quadrivalent, preservative free Dr. Rios Downey Work Phone: [facility] 09-11-2015 influenza, seasonal, injectable Dr. Jennifer Lu Work Phone: [facility] 03-03-2015 pneumococcal conjuga te vaccine, 13 valent JENNIFER LU MD [facility] 10-09-2014 influenza virus vacc ine, unspecified formulation JENNIFER LU MD [facility] 10-09-2014 influenza, injectabl e, quadrivalent, preservative free Dr. Rios Downey Work Phone: [facility] 10-09-2014 influenza, seasonal, injectable Dr. Rios Downey Work Phone: [facility] 09-17-2013 influenza virus vacc ine, unspecified formulation JENNIFER LU MD [facility] 09-17-2013 influenza, injectabl e, quadrivalent, preservative free Dr. Rios Downey Work Phone: [facility] 09-17-2013 influenza, seasonal, injectable Dr. Rios Downey Work Phone: [facility] 10-02-2012 pneumococcal polysaccharide vaccine, 23 valent JENNIFER LU MD [facility] 08-04-2011 tetanus toxoid, redu steph diphtheria toxoid, and acellular pertussis vaccine, adsorbed JENNIFER LU MD [facility] 08-28-2006 pneumococcal polysaccharide vaccine, 23 collins LU MD [facility] Payers Date Payer Category Payer Self-pay [id number] 2006 Medicare [id number] [facility] [id number] 2006 Unknown [id number] 1941 Unknown [id number] 2.16.8 [id number] Unknown [id number] Unknown [id number] 2.16.8 [id number] Unknown [id number] 2.16.8 [id number] Unknown [id number] 2.16.8 [id number] Unknown [id number] 2.16.8 [id number] Unknown [id number] 2.16.8 [id number] Unknown [id number] 2.16.8 [id number] Unknown [id number] 2.16.8 [id number] Unknown [id number] 2.16.8 [id number] Unknown [id number] 2.16.8 [id number] Unknown [id number] 2.16.8 [id number] Unknown [id number] 2.16.8 [id number] Unknown [id number] 2.16.8 [id number] Unknown [id number] 2.16.8 40.1.279313.3.579.2.462 Unknown [id number] 2.16.8 40.1.269832.3.579.2.462 Unknown [id number] 2.16.8 [id number] Unknown [id number] 2.16.8 [id number] Unknown [id number] 2.16.8 [id number] Unknown [id number] 2.16.8 [id number] Unknown [id number] 2.16.8 [id number] Unknown [id number] 2.16.8 [id number] Unknown [id number] 2.16.8 [id number] Unknown [id number] 2.16.8 [id number] Unknown [id number] 2.16.8 [id number] Unknown [id number] 2.16.8 [id number] Social History Date Type Detail Facility Start: 12-07-2021 End: 02-19-2024 Tobacco smoking status SDIS Unknown if ever smoked [facility] Start: 01-31-2021 None [facility] Start: 01-31-2021 Spouse/ Signif icant Other [facility] Start: 02-19-2020 Non-smoker [facility] Start: 1940 Sex Assigned At Male [facility] Start: 06-15-2019 End: 05-31-2025 Tobacco smoking status Ex-smoker (finding) [facility] Comment on above: no smoke exposure Start: 06-29-2023 Cigarettes [facility] Start: 02-27-2025 Sex Male (finding) [facility] Goals Date Patient Goal Desired Activity /State Functional Status Date Assessment Result Facility 09-22-2023 Functional status Ambulates;Chair [facility] Work Phone: 08-22-2023 Functional status With Assist of [facility] [place] [facility] Work [place]: 08-21-2023 Functional status Dangle Feet;Chair [facility] Work Phone: 08-20-2023 Functional status Standard Walker [facility] Work Phone: 08-18-2023 Functional status Ambulates [facility] Work Phone: 08-11-2023 Functional status Bedrest [facility] Work Phone: 08-10-2023 Functional status Tolerates Activity Fair [facility] Work Phone: 07-27-2023 Functional status Bedrest [facility] Work Phone: 07-26-2023 Functional status Assistive Radha pablito Rolling Walker [facility] Work Phone: 07-11-2023 Functional status Chair [facility] Work Phone: 07-03-2023 Functional status Bedrest [facility] Work Phone: 07-03-2023 Functional status Standard Walker [facility] Work Phone: Mental Status Date Assessment Result Facility 05-31-2025 Cognitive function Awake;Alert;A ppropriate;Follow s Commands [facility] Work Phone: 02-19-2024 Cognitive function Level Of Cons ciousness Awake;Alert;Appropriate;Follow s Commands [facility] Work Phone: 11-23-2023 Cognitive function Voice/Name [facility] Work Phone: 09-28-2023 Cognitive function Voice/Name [facility] Work Phone: 09-22-2023 Cognitive function Voice/Name [facility] Work Phone: 08-22-2023 Cognitive function Voice/Name [facility] Work Phone: 08-18-2023 Cognitive function Touch/Shaking [facility] Work Phone: 08-17-2023 Cognitive function Touch/Shaking [facility] Work Phone: 08-10-2023 Cognitive function Voice/Name [facility] Work Phone: 08-09-2023 Cognitive function Cooperative [facility] Work Phone: 07-27-2023 Cognitive function Voice/Name;Touch/Shaki ng [facility] Work Phone: 07-27-2023 Cognitive function Anxious;Restless;Fatig ued [facility] Work Phone: 07-10-2023 Cognitive function Voice/Name [facility] Work Phone: 07-03-2023 Cognitive function Voice/Name [facility] Work Phone: 06-29-2023 Cognitive function Voice/Name [facility] Work Phone: 07-12-2022 Cognitive function Awake;Alert;A ppropriate;Follow s Commands [facility] Work Phone: 03-15-2022 Cognitive function Awake;Alert;A ppropriate;Follow s Commands [facility] Work Phone: Clinical Notes 02-24-2016 to 06-20-2025 Note Date & Type Note Facility 06-20-2025 Progress note Note Date/Time June 20, 2025 3:43pm [facility] [address] [place] [address] OFFICE VISIT Date of Service: 06/20/25 MR#: [id number] Acct: [id number] Name: JODIE CARDENAS Rep #: [id number] : 1940 Provider: Dr. Nasreen Shook MD Age/Sex: 85/M Location: [facility] Status: Signed HPI HPI History of Present [...] Source Monitor Intake Visit Reasons: 9 M Dna Analyst Required: No Is patient in pain?: No Allergies Penicillins (PCN) Allergy (Verified 06/20/25 15:09) Swelling Medications ?Medication ?Instructions ?Recorded ?Confirmed ?Type aspirin 81 mg tablet,delayed 81 mg PO DAILY HEART HEAL TH 07/11/16 06/20/25 History release multivitamin 1 ea PO DAILY [facility] [place] 07/11/16 06/20/25 History insulin regular human 100 [...] angina pectoris Atherosclerosis of coronary artery of [place] heart without angina pectoris Chronic combined systolic [...] other details: Granddaughter. 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 heart without angina pectoris: Status: Chronic Comment: [...] 4 Diagnoses Atherosclerosis of coronary artery of [place] heart without angina pectoris I25.10 H/O aortic valve replacement Z95.2 Essential (primary) hypertension I10 Pure hypercholesterolemia E78.00; E78.0 Hyperlipidemia type: pure hypercholesterolemia Paroxysmal atrial fibrillation I48.0 Coding Level of Care Code Off vis,est,level 4 Diagnoses Atherosclerosis of coronary artery of [place] heart without angina pectoris I25.10 H/O aortic [...] applicable) CC: Dr. Rios Downey DO ~ [facility] Services Work Phone: 1(684) 202-437207-05-2025 Discharge summary [facility] Medical Records Department [address] [place] [address] Emergency Department Summary 05/31/25 MR#: [id number] Acct: [id number] Name: JODIE CARDENAS Rep #:[id number] : 1940 85 From: Duc Vicente MD [...] funny Location: Backseat of car going to [place] Current Severity: Gone Maximum Severity: Severe Worsened [...] with hypoxia Atherosclerosis of coronary artery of [place] heart without angina pectoris Essential (primary) hypertension [...] other details: Granddaughter. 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 [place]) Diagnostic Testing: Clinical Impression(s) from Imaging Studies Chest X-Ray 05/31/25 22:37 IMPRESSION: CARDIOMEGALY. NO ACUTE FINDINGS. Reading Location: [facility] EKG Initial EKG: Attestation: I personally reviewed and interpreted this EKG as follows: Interpretation: Atrial Fibrillation (Atrial fibrillation with a rate of 60. MI interval not applicable. QRS duration 58 ms. There is evidence of leftbundle branch block. QT duration is 484 ms. Cromwell is normal) Treatment and Re-Evaluation :: Patient [...] Care Provider] - 3-5 Days Print Language: Arabic Disposition Disposition: Home, Self Care What to do if you have Problems For any increased pain, shortness of breath, bleeding, nausea or vomiting, chestpain, or any unexpected problems, contact your Primary Care Provider. Call [facility] ([phone]) or report tothe closest Emergency Room. Call 911 if necessary. 06/01/2530 Cosigner Signature (if applicable): CC: Dr. Rios Downey DO ~ Signed [facility]07-04-2025 Radiology Diagnostic study note [facility] Imaging Services [address] [place], [place] [address] Chest PA and Lateral MR#: [id number] Acct: [id number] Name: JODIE CARDENAS Rep #: [id number] : 1940 M 85 From: Vicky Avalos MD PCP: Dr. Rios Downey DO Status: REG ER Study:Chest PA and Lateral Date of Exam: 05/31/25 Exam# [id number] Ordering Dr: Cherie Vicente MD PROCEDURE: CHEST [...] IMPRESSION: CARDIOMEGALY. NO ACUTE FINDINGS. Reading Location: [id number] CC: Dr. Rios Downey DO; Dr. Duc Vicente MD ~ [place] Steward: Signed [facility]07-04-2025 Discharge summary Author Duc Vicente [facility] Note Date/Time June 01, 2025 12:31 am [facility] Medical Records Department [address] [place] [address] Emergency Department Summary 05/31/25 MR#: [id number] Acct: [id number] Name: JODIE CARDENAS Rep #:[id number] : 1940 85 From: Duc Vicente MD [...] funny Location: Backseat of car going to [place] Current Severity: Gone Maximum Severity: Severe Worsened [...] with hypoxia Atherosclerosis of coronary artery of [place] heart without angina pectoris Essential (primary) hypertension [...] other details: Granddaughter. 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 [place]) Diagnostic Testing: Clinical Impression(s) from Imaging Studies Chest X-Ray 05/31/25 22:37 IMPRESSION: CARDIOMEGALY. NO ACUTE FINDINGS. Reading Location: [facility] EKG Initial EKG: Attestation: I personally reviewed and interpreted this EKG as follows: Interpretation: Atrial Fibrillation (Atrial fibrillation with a rate of 60. MI interval not applicable. QRS duration 58 ms. There is evidence of leftbundle branch block. QT duration is 484 ms. Cromwell is normal) Treatment and Re-Evaluation :: Patient [...] Care Provider] - 3-5 Days Print Language: Arabic Disposition Disposition: Home, Self Care What to do if you have Problems For any increased pain, shortness of breath, bleeding, nausea or vomiting, chestpain, or any unexpected problems, contact your Primary Care Provider. Call [facility] ([phone]) or report to the closest Emergency Room. Call 911 if necessary. 06/01/25 0031 <Electronically signed by Duc Vicente MD> Cosigner Signature (if applicable): CC: Dr. 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 March 14, 2025 2:55pm Chronic respiratory failure chronic March 14, 2025 2:55pm Obstructive sleep apnea chronic A pril 2024 2:55pm [facility] Work Phone: 1(578) 611-499804-17-2025 Evaluation note* Diagnosis Onset Date Resolution Status [...] Obstructive sleep apnea chronic J kim2024 3:00pm [facility] Work Phone: 1(149) 370-303010-26-2023 Discharge summary Author Eladio Lucas [facility] September 22, 2023 2:22pm Note Date/Time September 22, 2023 2 :22pm [facility] Medical Records Department [address] [place] [address] Discharge Summary 09/22/23 1416 MR#: [id number] Acct: [id number] Name: JODIE CARDENAS Rep #:[id number] : 1940 83 From: Eladio ramirez MD PCP: Dr. Rios Downey DO Status:ADM IN Location: [place] [id number]- [id number] Providers Date of Admission: 09/16/23 Primary Care Physician: Dr. Rios Downey, DO Consultations 09/20/23 11:34 Consult: Server Manager / Pulmonary Medicine Routine Consulting Provider: [facility] Reason for Consult: Continued elevated O2 requirement [...] unit/mL injection solution 12 unit subcut BID [id number]/27/16 cholecalciferol (vitamin D3) 25 mcg (1,000 unit) [...] for dementia who [facility] with history of discharge from SNF today specifically [facility] with reportedly transition to home and [...] want to send him back to a assisted as she thinks that the assisted made his condition worse. I discussed with [...] (Auto) 68.7, Lymph % (Auto) 18.8 L, [place] % (Auto) 8.1, Eos % (Auto) 3.7, [...] Peters; Otto Jerry; Tal Ashraf; Gosia Saenz FIRE PATROLLER Instructions Additional Instructions / Restrictions: Follow-up your [...] Health Service Charges/Coding Visit Charges Inpatient E&M: 69382 Disch Hosp >30min Procedures Hospitalists Procedures: 14095 Advncd Care Plan 30 Min 09/22/23 142 <Electronically signed by Eladio Lucas MD> Cosigner Signature (if applicable): CC: Dr. Eladio Lucas MD; Dr. Rios Downey DO~ Signed [facility] Work Phone: 1(359) 454-589110-26-2023 Progress note Author Yaakov Love [facility] September 22, 2023 1:57pm Note Date/Time September 22, 2023 9 :27am [facility] Medical Records Department [address] [address] Progress Note - Server Manager 09/22/23923 MR#: [id number] Acct: [id number] Name: JODIE CARDENAS Rep #:[id number] : 1940 83 From: Yaakov Love MD PCP: Dr. Rios Downey DO Status:ADM IN [facility] Assessment & Plan Assessment/Plan (1) [...] (Auto) 68.7, Lymph % (Auto) 18.8 L, [place] % (Auto) 8.1, Eos % (Auto) 3.7, [...] grossly normal Charges/Coding Visit Charges Inpatient E&M: 04945 Subs Hosp L2 09/22/23 1357 <Electronically signed by Yaakov Love MD> Cosigner Signature (if applicable): CC: ~ Signed [facility] Work Phone: 1(450) 294-918110-26-2023 Discharge summary Author Eladio Lucas [facility] September 22, 2023 1:18pm Note Date/Time September 22, 2023 1 :12pm [facility] Medical Records Department [facility] [place] [address] Instructions for Home/Discharge Instructions 09/22/23 1311 MR#: [id number] Acct: [id number] Name: JODIE CARDENAS Rep #:[id number] : 1940 83 From: Eladio ramirez MD [...] Peters; Otto Jerry; Tal Ashraf; Gosia Saenz FIRE PATROLLER Instructions Additional Instructions / Restrictions: Follow-up your [...] by Eladio Lucas MD>Eladio Lucas MD CC: FIRE PATROLLERGianfranco Saenz; Dr. Aleksander Hilliard DO; Dr. Patricia Alcantara MD; Dr. Yaakov Love MD; Dr. Josh Cline DO; Dr. Michelle Peters MD; Dr. Otto Jerry MD; Dr. Woody Brunson DO; Dr. Rios Downey DO; Dr. Tal Ashraf MD ~ Signed [facility] Work Phone: 1([phone]) 496-495510-25-2023 Progress note Author Yaakov Love [facility] September 21, 2023 1:05pm Note Date/Time September 21, 2023 8 :03am [facility] Medical Records Department [address] [place] [address] Progress Note - Server Manager 09/21/23 08 MR#: [id number] Acct: [id number] Name: JODIE CARDENAS Rep #:[id number] : 1940 83 From: Yaakov Love MD PCP: Dr. Rios Downey DO Status:ADM IN Location: [place] [address] Assessment & Plan Assessment/Plan (1) Acute exacerbation [...] grossly normal Charges/Coding Visit Charges Inpatient E&M: 37549 Subs Hosp L2 09/21/23 1305 <Electronically signed by Yaakov Love MD> Cosigner Signature (if applicable): CC: ~ Signed [facility] Work Phone: 1(842) 887-903010-25-2023 Progress note Author Eladio Lucas [facility] September 21, 2023 11:40am Note Date/Time September 21, 2023 1 1:34am [facility] Medical Records Department [address] [place] [address] Progress Note - Hospitalist 09/21/23 1131 MR#: [id number] Acct: [id number] Name: JODIE CARDENAS Rep #:[id number] : 1940 83 From: Eladio ramirez MD PCP: Dr. Rios Downey, DO Status:ADM IN Location: [place] [address] Subjective Subjective Doing well, no issues overnight [...] DVT: Eliquis Charges/Coding Visit Charges Inpatient E&M: 08559 Subs Hosp L2 09/21/23 1140 <Electronically signed by Eladio Lucas MD> Cosigner Signature (if applicable): CC: ~ Signed [facility] Work Phone: [phone]) 753-905510-24-2023 Consult note Author Yaakov Love [facility] September 20, 2023 3:26pm Note Date/Time September 20, 2023 3 :26pm [facility] Medical Records Department [address] [place] [address] Consultation - Server Manager 09/20/23 1512 MR#: [id number] Acct: [id number] Name: JODIE CARDENAS Rep #:[id number] : 1940 83 From: Yaakov Love MD PCP: Dr. Rios Downey, DO Status:ADM IN Location: [place] [id number]- 1 Assessment & Plan Assessment/Plan (1) Acute [...] pulmonary hypertension. Patient also noted to be [id number] pounds above dry weight. Agree with diuretics [...] medical history listed below, who presented to [facility] on 09/16/2023 secondary to a hypoxic episode. Patient reportedly was admitted at [facility] previously and transferred to a custodial center secondary to rehab. Patient reportedly was [...] be 22. Patient's BNP at that time ewa559 with a troponin of 41. Chest x-ray [...] psychiatric and hematologic system unless stated above. [facility] Medical History Anemia Atherosclerosis of coronary artery bypass graft without angina pectoris Atherosclerosis of coronary artery of [place] heart without angina pectoris Chronic combined systolic [...] unit/mL injection solution 12 unit subcut BID OCMXPPPT84/27/16 [History Last Taken 07/02/23] cholecalciferol (vitamin D3) [...] 179 H Charges/Coding Visit Charges Inpatient E&M: 01167 Init Hosp L3 09/20/23 1526 <Electronically signed by Yaakov Love MD> Cosigner Signature (if applicable): CC: IAN Saenz; Dr. Aleksander Hilliard DO; Dr. Patricia Alcantara MD; Dr. Yaakov Love MD; Dr. Josh Cline DO; Dr. Michelle Peters MD; Dr. Otto Jerry MD; Dr. Woody Brunson DO; Dr. Rios Downey DO; Dr. Tal Ashraf MD~ Signed [facility] Work Phone: 1(707) 206-507610-24-2023 Progress note Author Eladio Lucas [facility] September 20, 2023 1:43pm Note Date/Time September 20, 2023 1 :43pm [facility] Medical Records Department [address] [place] [address] Progress Note - Hospitalist 09/20/23 1340 MR#: [id number] Acct: [id number] Name: JODIE CARDENAS Rep #:[id number] : 1940 83 From: Eladio ramirez MD PCP: Dr. Rios Downey, DO Status:ADM IN Location: [facility] FXY935- 1 Subjective Subjective Doing well, no issues [...] DVT: Eliquis Charges/Coding Visit Charges Inpatient E&M: 03332 Subs Hosp L2 09/20/23 1343 <Electronically signed by Eladio uLcas MD> Cosigner Signature (if applicable): CC: ~ Signed [facility] Work Phone: 1(891) 126-310710-23-2023 Progress note Author Eladio Lucas [facility] September 19, 2023 1:41pm Note Date/Time September 19, 2023 1 :34pm [facility] Medical Records Department [address] [place] [address] [place] [address] Progress Note - Hospitalist 09/19/23 1320 MR#: [id number] Acct: [id number] Name: JODIE CARDENAS Rep #:[id number] : 1940 83 From: Eladio ramirez MD PCP: Dr. Rios Downey, DO Status:ADM IN Location: [place] [address] Subjective Subjective Doing well, feels a bit [...] DVT: Eliquis Charges/Coding Visit Charges Inpatient E&M: 80802 Subs Hosp L2 09/19/23 1341 <Electronically signed by Eladio Lucas MD> Cosigner Signature (if applicable): CC: ~ Signed [facility] Work Phone: 1(290) 672-295510-22-2023 Progress note Author Aleksander Hilliard [facility] September 18, 2023 2:18pm Note Date/Time September 18, 2023 2 :18pm [facility] Medical Records Department [address] [place] [address] Progress Note - Hospitalist 09/18/23 1400 MR#: [id number] Acct: [id number] Name: JODIE CARDENAS Rep #:[id number] : 1940 83 From: Aleksander camargo DO PCP: Dr. Rios Downey, DO Status:ADM IN Location: [place] [address] Reason for Visit Reason for Visit: Diagnoses [...] for CVA rule out who presented to [facility] ED on 09/16/2023 with worsening shortness of [...] 35 minutes. Charges/Coding Visit Charges Inpatient E&M: 40509 Subs Hosp L2 09/18/23 1418 <Electronically signed by Aleksander Hilliard DO> Cosigner Signature (if applicable): CC: ~ Signed [facility] Work Phone: 1(535) 866-680510-21-2023 Progress note Author Aleksander [facility] September 17, 2023 3:42pm Note Date/Time September 17, 2023 3 :38pm [facility] Medical Records Department [address] [place] [address] Progress Note - Hospitalist 09/17/23 1527 MR#: [id number] Acct: [id number] Name: JODIE CARDENAS Rep #:[id number] : 1940 83 From: Aleksander camargo DO PCP: Dr. Rios Downey, Status:ADM IN Location: [place] [id number]- 1 Reason for Visit Reason for Visit: [...] % (Auto) 68.1, Lymph % (Auto) 19.0, [place] % (Auto) 8.1, Eos % (Auto) 3.7, [...] 70.5 H, Lymph % (Auto) 16.9 L, [place] % (Auto) 7.1, Eos % (Auto) 4.6, [...] of acute cardiopulmonary disease. Electronically Signed: Vincent Udnerwood MD at 17:04 EDT , Physical Exam [...] for CVA rule out who presented to [facility] ED on 09/16/2023 with worsening shortness of [...] 35 minutes. Charges/Coding Visit Charges Inpatient E&M: 03870 Subs Hosp L2 09/17/23 1546 <Electronically signed by Aleksander Hilliard DO> Cosigner Signature (if applicable): CC: ~ Signed [facility] Work Phone: 1(639) 945-439110-20-2023 Discharge summary Author Cesar Medina [facility] September 16, 2023 6:42pm Note Date/Time September 16, 2023 6 :42pm [facility] Medical Records Department [address] [place] [address] Emergency Department Summary 09/16/23 MR#: [id number] Acct: [id number] Name: JODIE CARDENAS Rep #:[id number] : 1940 83 From: Cesar Medina DO PCP: Dr. Rios Downey, Status:REG ER Location: ED HPI History of Present Illness Chief Complaint: Shortness of Breath Narrative Narrative: 83-year-old male with history of CHF, A-fib, CKD, CAD, diabetes, hypertension, sleep apnea presenting with hypoxic episode. Patient was recently inpatient at [facility] for what sounds like about a month. He was discharged to a custodial facility where he just left today. His [...] state that when he was at the assisted he was huffing and puffing when he was walking but not like today. He states that they change his Lasix to torsemide while he was at the custodial facility he is not sure why they did this. They also put him on potassium. [facility] Medical History Anemia Atherosclerosis of coronary artery bypass graft without angina pectoris Atherosclerosis of coronary artery of [place] heart without angina pectoris Chronic combined systolic [...] unit/mL injection solution 12 unit subcut BID [id number]/27/16 [History Last Taken 07/02/23] cholecalciferol (vitamin D3) [...] % (Auto) 68.1 Lymph % (Auto) 19.0 [place] % (Auto) 8.1 Eos % (Auto) 3.7 [...] and State: [facility] [place] Tel , Service support , Discharge Plan [...] problems, contact your Primary Care Provider. Call [place] [facility] ([phone]) or report to the closest Emergency Room. Call 911 if necessary. 09/16/23 1842 <Electronically signed by Cesar Medina DO> Cosigner Signature (if applicable): CC: Dr. Rios Downey DO ~ Signed [facility] Work Phone: 1(451) 993-978710-20-2023 History and physical note Author Patricia Alcantara [facility] September 16, 2023 6:41pm Note Date/Time September 16, 2023 6 :17pm [facility] Medical Records Department [address] [place] [address] H&P Exam - Hospitalist 09/16/23 180 MR#: [id number] Acct: [id number] Name: JODIE CARDENAS Rep #:[id number] : 1940 83 From: Patricia Alcantara MD [...] for dementia who now [facility] ED on 09[facility]16/23 with history of discharge from SNF today specifically [facility] with reportedly transition to home and [...] atrial fibrillation without acute evidence of ischemia. [facility] Medical History Anemia Atherosclerosis of coronary artery bypass graft without angina pectoris Atherosclerosis of coronary artery of [place] heart without angina pectoris Chronic combined systolic [...] unit/mL injection solution 12 unit subcut BID [id number]/27/16 [History Last Taken 07/02/23] cholecalciferol (vitamin D3) [...] % (Auto) 68.1, Lymph % (Auto) 19.0, Estill % (Auto) 8.1, Eos % (Auto) 3.7, [...] 17:04 EDT Reading Location ID and State: [address] [place] [address] Tel , Service support , Assessment & [...] for dementia who now re-presents to the [facility] ED on 09/16/23 with history of discharge from SNF today specifically [facility] with reportedly transition to home and [...] not repeat. Will place neck Dionna wraps. PT/OT/rifle case repairer consultation for discharge planning. To be cautious [...] intubation status. Charges/Coding Visit Charges Inpatient E&M: 32286 Init Hosp L3 09/16/23 184 <Electronically signed by Patricia Alcantara MD> Cosigner Signature (if applicable): CC: Dr. Patricia Alcantara MD; Dr. Rios Downey, ~ Signed [facility] Work Phone: 1(430) 644-145810-20-2023 History and physical note Author [facility] September 16, 2023 6:41pm Note Date/Time September 16, 2023 6 :17pm [facility] Medical Records Department [address] [place] [address] H&P Exam - Hospitalist 09/16/23 1809 MR#: [id number] Acct: [id number] Name: JODIE CARDENAS Rep #:[id number] : 1940 83 From: Patricia Alcantara MD [...] for dementia who now re-presents to the [facility] ED on 09/16/23 with history of discharge from SNF today specifically [facility] with reportedly transition to home and [...] atrial fibrillation without acute evidence of ischemia. [facility] Medical History Anemia Atherosclerosis of coronary artery bypass graft without angina pectoris Atherosclerosis of coronary artery of [place] heart without angina pectoris Chronic combined systolic [...] unit/mL injection solution 12 unit subcut BID [id number]/27/16 [History Last Taken 07/02/23] cholecalciferol (vitamin D3) [...] % (Auto) 68.1, Lymph % (Auto) 19.0, Estill % (Auto) 8.1, Eos % (Auto) 3.7, [...] for dementia who now re-presents to the [facility] ED on 09/16/23 with history of discharge from SNF today specifically [facility] with reportedly transition to home and [...] not repeat. Will place neck Dionna wraps. PT/OT/rifle case repairer consultation for discharge planning. To be cautious [...] intubation status. Charges/Coding Visit Charges Inpatient E&M: 78204 Init Hosp L3 09/16/23 1841 <Electronically signed by Patricia Alcantara MD> Cosigner Signature (if applicable): CC: Dr. Patricia Alcantara MD; Dr. Rios Downey, DO~ Signed [facility] Work Phone: 1([phone]) 780-604710-20-2023 Discharge summary Author Cesar Medina [facility] September 16, 2023 6:42pm Note Date/Time September 16, 2023 6 :42pm [facility] Medical Records Department [address] [facility] [place] [address] Emergency Department Summary 09/16/23 MR#: [id number] Acct: [id number] Name: JODIE CARDENAS Rep #:[id number] : 1940 83 From: Cesar Medina DO PCP: Dr. Rios Downey, Status:REG ER Location: ED HPI History of Present Illness Chief Complaint: Shortness of Breath Narrative Narrative: 83-year-old male with history of CHF, A-fib, CKD, CAD, diabetes, hypertension, sleep apnea presenting with hypoxic episode. Patient was recently inpatient at [facility] for what sounds like about a month. He was discharged to a custodial facility where he just left today. His [...] state that when he was at the assisted he was huffing and puffing when he was walking but not like today. He states that they change his Lasix to torsemide while he was at the custodial facility he is not sure why they did this. They also put him on potassium. [facility] Medical History Anemia Atherosclerosis of coronary artery bypass graft without angina pectoris Atherosclerosis of coronary artery of [place] heart without angina pectoris Chronic combined systolic [...] unit/mL injection solution 12 unit subcut BID [id number]/27/16 [History Last Taken 07/02/23] cholecalciferol (vitamin D3) [...] % (Auto) 68.1 Lymph % (Auto) 19.0 Estill % (Auto) 8.1 Eos % (Auto) 3.7 [...] 17:04 EDT Reading Location ID and State: [address] [place] [address] Tel , Service support , Discharge Plan [...] your Primary Care Provider. Call [facility] ([phone]) or report to the closest Emergency Room. Call 911 if necessary. 09/16/231841 <Electronically signed by Cesar Medina DO> Cosigner Signature (if applicable): CC: Dr. Rios Downey DO ~ Signed [facility] Work Phone: 1(809) 669-828209-25-2023 Discharge summary Author Mikey Macias [facility] August 22, 2023 12:17pm Note Date/Time August 22, 2023 12:17pm [facility] Medical Records Department [address] [place] [address] Discharge Summary 08/22/23 1216 MR#: [id number] Acct: [id number] Name: HAMZAHJODIE MCKEE Lorna Rep #:[id number] : 1940 83 From: Mikey Macias DO PCP: Dr. Rios Downey DO Status:ADM IN Location: [place] [id number]- [id number] Providers Date of Admission: 08/18/23 Primary [...] malaise Plan: Patient to go back to [facility]. Plan Chronic conditions * Seizure disorder?Patient [...] unit/mL injection solution 25 unit subcut BID [id number]/27/16 cholecalciferol (vitamin D3) 25 mcg (1,000 unit) [...] 75.8 H, Lymph % (Auto) 16.5 L, Estill % (Auto) 5.6, Eos % (Auto) 1.4, [...] in before D/C Order can be placed): Half-Way Facility Charges/Coding Visit Charges Inpatient E&M: 78106 Disch Hosp 08/22/231216 <Electronically signed by Mikey Macias DO> Cosigner Signature (if applicable): CC: Dr. Mikey Macias DO; Dr. Rios Downey DO~ Signed [facility] Work Phone: 1(672) 532-918309-25-2023 Discharge summary Author Mikey Macias [facility] August 22, 2023 12:16pm Note Date/Time August 22, 2023 12:12pm [facility] Medical Records Department [address] [place] [address] Transfer to [facility] MR#: [id number] Acct: [id number] Name: JODIE CARDENAS Rep #:[id number] : 1940 83 From: Mikey Macias DO PCP: Dr. Rios Downey DO Status:ADM IN Certification of patient admission REQUIRED AT TIME OF ADMISSION. I CERTIFY THAT POST-HOSPITAL F SERVICES ARE REQUIRED TO BE GIVEN ON AN IN-PATIENT BASIS BECAUSE OF THE ABOVE NAMED PATIENT'S NEED FOR LONG TERM CARE ON A CONTINUING BASIS FOR THE CONDITION(S) FOR WHICH HE/SHE WAS RECEIVING IN-PATIENT HOSPITAL SERVICES PRIOR TO HIS/HER TRANSFER TO THE [facility]. 08/22/23 1216<Electronically signed by Mikey Macias DO> Diet Diet Order/Speech Therapy: 08/19/23 13:25 ADA [Diet: Cardiac: Calorie-Controlled] Food consistency:: Pureed Liquid Consistency:: [place]/Mildly Thick Is pt able to select menu?: [...] malaise Plan: Patient to go back to [facility]. Plan Chronic conditions * Seizure disorder?Patient [...] in before D/C Order can be placed): Half-Way Facility 08/22/23 1216 <Electronically signed by Mikey Macias DO> Cosigner Signature (if applicable): CC: Dr. Patricia Alcantara MD; Dr. James Camarillo MD; Dr. Rios Downey DO ~ [facility] Work Phone: [phone]) 505-735209-25-2023 Progress note Author Mikey Macias [facility] August 22, 2023 12:11pm Note Date/Time August 22, 2023 10:00am [facility] Medical Records Department [address] [place] [address] Progress Note - Hospitalist 08/22/23 0956 MR#: [id number] Acct: [id number] Name: JODIE CARDENAS Rep #:[id number] : 1940 83 From: Mikey Macias DO PCP: Dr. Rios Downey DO Status:ADM IN Location: [place] [address] Reason for Visit Reason for Visit: Diagnoses [...] 75.8 H, Lymph % (Auto) 16.5 L, Estill % (Auto) 5.6, Eos % (Auto) 1.4, [...] Debility: PLAN: Patient to go back to [facility]. PLAN: Plan Chronic conditions * Seizure [...] Cosigner Signature (if applicable): CC: ~ Signed [facility] Work Phone: 1([phone]) 984-960109-24-2023 Progress note Author James Camarillo [facility] August 21, 2023 11:49am Note Date/Time August 21, 2023 8:45am [facility] Medical Records Department [address] [place] [address] Progress Note - Hospitalist 08/21/23 0844 MR#: [id number] Acct: [id number] Name: JODIE CARDENAS Rep #:[id number] : 1940 83 From: James Camarillo MD PCP: Dr. Rios Downey, Status:ADM IN Location: [place] [id number]- 1 Reason for Visit Reason for Visit: Diagnoses Disorientation, unspecified (08/18/23) Subjective Subjective Patient seen remains stable with no change in condition plan is for patient to be transferred to custodial facility pending insurance approval/precertification Objective Data Objective [...] 74.3 H, Lymph % (Auto) 17.4 L, [place] % (Auto) 6.0, Eos % (Auto) 1.4, [...] Requested for PT OT eval and social welfare administrator to assist with discharge planning ? 08/20/2023; awaiting insurance approval prior to transfer to custodial facility ? 08/21/2023; Patient seen remains stable with no change in condition plan is forpatient to be transferred to custodial facility pending insurance approval/precertification 3. Seizure disorder [...] documentation, 35minutes Charges/Coding Visit Charges Inpatient E&M: 82280 Subs Hosp L2 08/21/23 1149 <Electronically signed by James Camarillo MD> Cosigner Signature (if applicable): CC: ~ Signed [facility] Work Phone: 1([phone]) 280-195509-23-2023 Progress note Author James Camarillo [facility] August 20, 2023 11:15am Note Date/Time August 20, 2023 8:35am [facility] Medical Records Department [address] [place] [address] Progress Note - Hospitalist 08/20/23834 MR#: [id number] Acct: [id number] Name: JODIE CARDENAS Rep #:[id number] : 1940 83 From: James Camarillo MD PCP: Dr. Rios Downey, DO Status:ADM IN Location: [place] [id number]- 1 Reason for Visit Reason for Visit: Diagnoses Disorientation, unspecified (08/18/23) Subjective Subjective Patient seen appears to be back to [facility] Objective Data Objective [...] Requested for PT OT eval and social welfare administrator to assist with discharge planning ? 08/20/2023; awaiting insurance approval prior to transfer to custodial facility 3. Seizure disorder ?Patient is on [...] documentation, 35minutes Charges/Coding Visit Charges Inpatient E&M: 19714 Subs Hosp L2 08/20/23 1115 <Electronically signed by James Camarillo MD> Cosigner Signature (if applicable): CC: ~ Signed [facility] Work Phone: 1(783) 788-474709-22-2023 Progress note [facility] August 19, 2023 12:57pm Note Date/Time August 19, 2023 9:42am [facility] Medical Records Department [address] [facility] [address] Progress Note - Hospitalist 08/19/23 09 MR#: [id number] Acct: [id number] Name: JODIE CARDENAS Rep #:[id number] : 1940 83 From: James Camarillo MD PCP: Dr. Rios Downey, DO Status:ADM IN Location: [place] [address] Reason for Visit Reason for Visit: Diagnoses [...] 73.4 H, Lymph % (Auto) 17.6 L, [place] % (Auto) 6.4, Eos % (Auto) 1.8, [...] % (Auto) 67.7, Lymph % (Auto) 22.6, [place] % (Auto) 6.6, Eos % (Auto) 2.4, [...] Requested for PT OT eval and social welfare administrator to assist with discharge planning 3. Seizure [...] documentation, 55minutes Charges/Coding Visit Charges Inpatient E&M: 57483 Subs Hosp L3 08/19/23 1257 <Electronically signed by James Camarillo MD> Cosigner Signature (if applicable): CC: ~ Signed [facility] Work Phone: 1(343) 338-687809-21-2023 History and physical note Author Patricia Alcantara [facility] August 18, 2023 9:21pm Note Date/Time August 18, 2023 2:36pm [facility] Medical Records Department [address] [place] [address] H&P Exam - Hospitalist 08/18/23 1435 MR#: [id number] Acct: [id number] Name: JODIE CARDENAS Rep #:[id number] : 1940 83 From: Patricia Alcantara MD PCP: Dr. Rois Downey, DO Status:ADM IN Location: [place] [facility]- 1 HPI - General General Date of [...] TCU following who now represents to the [facility] ED on 08/18/23 with history of onset [...] the ED patient administered maintenance IV fluids. [facility] Medical History Acute exacerbation of CHF (congestive heart failure) Acute on chronic diastolic (congestive) heart failure Acute respiratory failure with hypoxia Anemia Atherosclerosis of coronary artery bypass graft without angina pectoris Atherosclerosis of coronary artery of [place] heart without angina pectoris Atrial fibrillation with [...] unit/mL injection solution 25 unit subcut BID [id number]/27/16 [History Last Taken 07/02/23] cholecalciferol (vitamin D3) [...] unable to have patient perform finger-nose or [id number], equivocal Babinski, patient is definitely having interactive [...] 73.4 H, Lymph % (Auto) 17.6 L, [place]ill % (Auto) 6.4, Eos % (Auto) 1.8, [...] TCU following who now represents to the [facility] ED on 08/18/23 with history of onset [...] concern for oral intake will transition to MI ASA, holding oral regimen. Maintain on fall [...] intubation status. Charges/Coding Visit Charges Inpatient E&M: 17721 Init Hosp L3 08/18/232120 <Electronically signed by Patricia Alcantara MD> Cosigner Signature (if applicable): CC: Dr. Patricia Alcantara MD; Dr. Rios Downey, DO~ Signed [facility] Work Phone: 1([phone]) 785-931709-21-2023 Discharge summary [facility] August 18, 2023 6:32pm Note Date/Time August 18, 2023 11:20am [facility] Medical Records Department [address] [place] [address] Emergency Department Summary 08/18/23 MR#: [id number] Acct: [id number] Name: JODIE CARDENAS Rep #:[id number] : 1940 83 From: Farhan Encinas PCP: Dr. Rios Downey, DO Status:ADM IN Location: [address] History of Present Illness Chief Complaint: Stroke Alert [facility] Medical History (Updated 08/18/23 @ 17:56 by Audra Wilhelm) Acute exacerbation of CHF (congestive heart failure) Acute on chronic diastolic (congestive) heart failure Acute respiratory failure with hypoxia Anemia Atherosclerosis of coronary artery bypass graft without angina pectoris Atherosclerosis of coronary artery of [place] heart without angina pectoris Atrial fibrillation with [...] unit/mL injection solution 25 unit subcut BID [id number]/27/16 [History Last Taken 07/02/23] cholecalciferol (vitamin D3) [...] patient's nurse Consults: Stroke neurology, internal medicine [facility] Narrative: Patient was initially hemodynamically [...] 73.4 H Lymph % (Auto) 17.6 L [place] % (Auto) 6.4 Eos % (Auto) 1.8 [...] Discharge Plan Disposition Disposition: Acute Care Hospital [facility] Discharge Date/Time: 08/18/23 17:38 What to do if you have Problems For any increased pain, shortness of breath, bleeding, nausea or vomiting, chest pain, or any unexpected problems, contact your Primary Care Provider. Call [facility] ([phone]) or report to the closest Emergency Room. Call 911 if necessary. 08/18/23 1832 <Electronically signed by Farhan Bonds DO> Cosigner Signature (if applicable): CC: Dr. Rios Downey, DO ~ Signed [facility] Work Phone: 1(112) 221-108209-16-2023 Progress note Author Carrie Bonner [facility] August 13, 2023 10:00am Note Date/Time August 08, 2023 11:01am [facility] Medical Records Department [address] [place] [address] Progress Note - Nephrology 08/08/23 1059 MR#: [id number] Acct: [id number] Name: JODIE CARDENAS Rep #:[id number] : 1940 83 From: Saumya andrews FIRE PATROLLER-C PCP: Dr. Rios Downey DO Status:ADM IN Location: [place] [address] Subjective Subjective Resting in bed. No complaints. [...] 07/27/23 15:44 BRANDEN (Rec: 07/27/23 15:44 BRANDEN [id number]) Nutrition Malnutrition Evidence of Malnutrition Exists Yes [...] Cardiac, 2000 jade Controlled - consistency per AMBULANCE OFFICER Will monitor for changes in res nutritional [...] will need hospital follow-up made with his construction ironworker helper, Dr. Guille wyatt 1-2 months. 08/08/23 1101 <Electronically signed by Saumya SOSA> Cosigner Signature (if applicable): 08/13/23 1000 <Electronically signed by Carrie Bonner MD> CC: ~ Signed [facility] Work Phone: 1(134) 309-495809-05-2023 Progress note Author Jeremy Magallanes [facility] August 02, 2023 8:05am Note Date/Time August 02, 2023 8:05am [facility] Medical Records Department [address] [place] [address] Progress Note - [facility] 08/02/23 0759 MR#: [id number] Acct: [id number] Name: JODIE CARDENAS Rep #:[id number] : 1940 83 From: Jeremy Magallanes MD PCP: Dr. Rios Downey, DO Status:ADM IN Location: [place] [address] Subjective Subjective Resident seen, examined. 1 week [...] 07/27/23 15:44 SLA (Rec: 07/27/23 15:44 SLA [id number]) Nutrition Malnutrition Evidence of Malnutrition Exists Yes [...] Cardiac, 2000 jade Controlled - consistency per AMBULANCE OFFICER Will monitor for changes in res nutritional [...] 25mg daily, Zyprexa 2.5mg qhs, stable chronic long-term use, GDR not recommended. * Vitamin D [...] Cosigner Signature (if applicable): CC: ~ Signed [facility] Work Phone: 1(332) 449-378908-28-2023 Progress note Author Clay Berry [facility] July 25, 2023 11:36am Note Date/Time July 25, 2023 10 :25am [facility] Medical Records Department [address] [place] [address] Progress Note - Nephrology 07/25/23 1021 MR#: [id number] Acct: [id number] Name: JODIE CARDENAS Rep #:[id number] : 1940 83 From: Saumya andrews NP-C PCP: Dr. Rios Downey, DO Status:ADM IN Location: [place] [address] Subjective Subjective Following for CKD Sitting in [...] (Auto) 69.0, Lymph % (Auto) 18.2 L, [place] % (Auto) 7.8, Eos % (Auto) 4.1, [...] will need hospital follow-up made with his construction ironworker helper, Dr. Han inasalome 1-2 months. 07/25/23 1025 <Electronically signed by Saumya SOSA> Cosigner Signature (if applicable): 07/25/23 1136 <Electronically signed by Clay Berry MD> CC: ~ Signed [facility] Work Phone: 1([phone]) 593-424108-26-2023 Consult note Author Carrie Bonner [facility] July 23, 2023 10:57am Note Date/Time July 11, 2023 11 :26am [facility] Medical Records Department [address] [place] [address] Consultation - Nephrology 07/11/23 1116 MR#: [id number] Acct: [id number] Name: JODIE CARDENAS Rep #:[id number] : 1940 83 From: Saumya SOSA PCP: Dr. Rios Downye, DO Status:ADM IN [facility] & [facility] Assessment/Plan (1) CKD (chronic [...] cannot recall when last seen by his construction ironworker helper. In reviewing past serum creatinine trends, baseline creatinine ranging around 2.4 to 2.7 mg/dL. Patient denies any recent nausea, vomiting or diarrhea. Reports has good appetite. No recent overnight events. [facility] Medical History Acute exacerbation of CHF (congestive heart failure) Acute on chronic diastolic (congestive) heart failure Acute respiratory failure with hypoxia Anemia Atherosclerosis of coronary artery bypass graft without angina pectoris Atherosclerosis of coronary artery of [place] heart without angina pectoris Atrial fibrillation with [...] unit/mL injection solution 25 unit subcut BID [id number]/27/16 [History Last Taken 07/02/23] cholecalciferol (vitamin D3) [...] 76.7 H, Lymph % (Auto) 9.8 L, [place] % (Auto) 9.5, Eos % (Auto) 3.2, [...] Berry MD; Dr. Rios Downey, DO~ Signed [facility] Work Phone: 1([phone]) 519-349308-26-2023 Progress note Author Carrie Bassettfaith [facility] July 23, 2023 10:57am Note Date/Time July 14, 2023 10 :34am [facility] Medical Records Department [address] [place] [address] Progress Note - Nephrology 07/14/23 1029 MR#: [id number] Acct: [id number] Name: JODIE CARDENAS Rep #:[id number] : 1940 83 From: Saumya SOSA PCP: Dr. Rios Downey, DO Status:ADM IN Location: [place] [address] Subjective Subjective Following for CKD Patient resting [...] by Carrie Bonner MD> CC: ~ Signed [facility] Work Phone: 1(350) 586-839108-26-2023 Progress note Author Carriedeb [facility] July 23, 2023 10:56am Note Date/Time July 19, 2023 2: 40pm [facility] Medical Records Department [address] [place] [address] Progress Note - Nephrology 07/19/23 1437 MR#: [id number] Acct: [id number] Name: JODIE CARDENAS Rep #:[id number] : 1940 83 From: Saumya SOSA PCP: Dr. Rios Downey, DO Status:ADM IN Location: [place] [address]- Subjective Subjective No overnight events. Sitting in [...] by Carrie Bonner MD> CC: ~ Signed [facility] Work Phone: 1([phone]) 770-779108-23-2023 Procedure [facility] 07-20-2023 History and physical note Author Jeremy Magallanes [facility] July 20, 2023 7:53am Note Date/Time July 03, 2023 8:3 0pm [facility] Medical Records Department [address] [place] [address] History & Physical Exam 07/03/232021 MR#: [id number] Acct: [id number] Name: JODIE CARDENAS Rep #:[id number] : 1940 83 From: Jeremy Magallanes MD PCP: Dr. Rios Downey, DO Status:ADM IN Location: U [facility]22-1 HPI - General General Date of Admission: 07/03/23 Date of Service: 07/04/23 Chief Complaint: Here for rehabilitation. HPI Narrative 06/29/2023 JODIE CARDENAS, is a 83 Male who presents to [facility] Emergency Department with stroke alert. 06/29/2023 EKG atrial fibrillation with slow ventricular response, left bundle branch block. Sometimes forgetful sleeping in chair, confused. Acting out of character, intermittent confusion, slurring words. Expressive aphasia, dysarthria, confusion. Symptoms improving, NIH 1, not TPA candidate. 06/29/2023 Admit to [facility]. PT/OT/ST, aspirin, atorvastatin for rule out stroke. [...] strengthening, prior to discharge home with granddaughter. [facility] Medical History Acute exacerbation of CHF (congestive heart failure) Acute on chronic diastolic (congestive) heart failure Acute respiratory failure with hypoxia Anemia Atherosclerosis of coronary artery bypass graft without angina pectoris Atherosclerosis of coronary artery of [place] heart without angina pectoris Atrial fibrillation with [...] unit/mL injection solution 25 unit subcut BID PHBYCLIZ79/27/16 [History Last Taken 07/02/23] cholecalciferol (vitamin D3) [...] 25mg daily, Zyprexa 2.5mg qhs, stable chronic rn long term care use, GDR not recommended. [...] DO; Dr. Jeremy Magallanes MD ~* Signed [facility] Work Phone: 1([phone]) 106-663008-08-2023 Progress note Author Jeremy Elpidio [facility] July 05, 2023 11:19am Note Date/Time July 05, 2023 11: 03am [facility] Medical Records Department [address] [place] [address] Progress Note - Pharmacy 07/05/23 1048 MR#: [id number] Acct: [id number] Name: JODIE CARDENAS Rep #:[id number] : 1940 83 From: Ingrid Rizvi PCP: [...] 18:00 07/05/23 05:04 Apixaban 2.5 Mg Tablet ([facility]) PO 2.5 mg BID AYLIN Administration Atorvastatin [...] (Updated 07/03/23 @ 20:[address] Jeremy Magallanse MD) Coronary artery disease (Acute) Seizure disorder [...] by Jeremy Magallanes MD> CC: ~ Signed [facility] Work Phone: 1(135) [phone] Discharge summary Author Woody Brunson [facility] July 03, 2023 11:01am Note Date/Time July 03, 2023 10: 51am [facility] Medical Records Department [address] [place] [address] Transfer to [facility] MR#: [id number] Acct: [id number] Name: JODIE CARDENAS Rep #:[id number] : 1940 83 From: Woody Brunson DO PCP: Dr. Rios Downey, Status:ADM IN Certification of patient admission REQUIRED AT TIME OF ADMISSION. I CERTIFY THAT POST-HOSPITAL ECF SERVICES ARE REQUIRED TO BE GIVEN ON AN IN-PATIENT BASIS BECAUSE OF THE ABOVE NAMED PATIENT'S NEED FOR LONG TERM CARE ON A CONTINUING BASIS FOR THE [...] Continue diet as ordered - consistency per AMBULANCE OFFICER Will order 4 oz glucerna shake tid w/ medpass d/t poor po intake since in hospital Continue to monitor for changes in pt nutritional status and make additional rec as indicated Speech Linguistic Eval Summary: Patient laying in bed, difficult to arouse. Required constant verbal and tactile cueing to participate in conversation w/ AMBULANCE OFFICER. Frequently closing eyes, lethargic. Granddaughter present for cognitive-linguistic evaluation. Granddaughter reports patient does have some cognitive impairment as baseline, he does not typically know their address, RICH, etc. Granddaughter attributes this to age related decline however, AMBULANCE OFFICER suspects dementia at baseline. Granddaughter does live w/ patient. Orientation - Oriented to name, month and date of birthday only. Disoriented to year of , current month, current year and place despite choice array of 2. Patient reporting it is Jul 1964 and he is at [facility]. Unable to recall any personal details. Verbal expression - Very difficult to understand, slurred speech (50% intelligible w/ unknown context). Granddaughter reports worsening dysarthria compared to baseline. Patient does have upper/lower dentures that he sometimes uses when he eats. Auditory comprehension - Difficult to understand task, unable to determine if d/t lethargy or exacerbation of cognitive impairment. AMBULANCE OFFICER discontinued cognitive-linguistic assessment d/t lethargy, will continue [...] in before D/C Order can be placed): [facility] Facility 07/03/23 1101 <Electronically signed by Woody Brunson DO> Cosigner Signature (if applicable): CC: Dr. Rigoberto Ashley MD; Dr. Rios oDwney DO ~ [facility] Work Phone: 1(786) 601-622708-05-2023 Progress note Author Woody [facility] July 02, 2023 9:59am Note Date/Time July 02, 2023 9:5 6am [facility] Medical Records Department [address] [place] [address] Progress Note - Hospitalist 07/02/23 0954 MR#: [id number] Acct: [id number] Name: JODIE CARDENAS Rep #:[id number] : 1940 83 From: Woody Brunson DO PCP: Dr. Rios Downey DO Status:ADM IN Location: [place] [address] Reason for Visit Reason for Visit: Diagnoses [...] he will need short-term placement in the custodial facility for rehab services. #2 type 2 [...] 35 minutes Charges/Coding Visit Charges Inpatient E&M: 63529 Subs Hosp L2 07/02/23 0959 <Electronically signed by Woody Brunson DO> Cosigner Signature (if applicable): CC: ~ Signed [facility] Work Phone: 1(160) 564-832008-04-2023 Progress note Author [facility] July 01, 2023 5:13pm Note Date/Time July 01, 2023 4:5 8pm [facility] Medical Records Department [address] [place] [address] Progress Note - Hospitalist 07/01/23 1655 MR#: [id number] Acct: [id number] Name: JODIE CARDENAS Rep #:[id number] : 1940 83 From: Woody Brunson DO PCP: Dr. Rios Downey, DO Status:ADM IN Location: [place] [id number]- Reason for Visit Reason for Visit: Diagnoses [...] 76.6 H, Lymph % (Auto) 14.4 L, Est[place] % (Auto) 7.7, Eos % (Auto) 0.6, [...] most likely need temporary placement in a custodial facility. #2 type 2 diabetes-blood sugar will [...] 35 minutes Charges/Coding Visit Charges Inpatient E&M: 31653 Subs Hosp L2 07/01/23 1713 <Electronically signed by Woody Brunson DO> Cosigner Signature (if applicable): CC: ~ Signed [facility] Work Phone: 1(407) 545-822308-03-2023 Progress note Author [facility] June 30, 2023 7:55pm Note Date/Time June 30, 2023 6:4 1pm [facility] Medical Records Department [address] [place] [address] Progress Note - Hospitalist 06/30/23 1834 MR#: [id number] Acct: [id number] Name: JODIE CARDENAS Rep #:[id number] : 1940 83 From: Woody Brunson DO PCP: Dr. Rios Downey, Status:ADM IN Location: [place] [address] Reason for Visit Reason for Visit: Diagnoses [...] 72.4 H, Lymph % (Auto) 18.2 L, [place] % (Auto) 7.1, Eos % (Auto) 1.3, [...] L, BUN/Creatinine Ratio 19.3, Glucose 121 H, WhjkmsmlcmU5x 5.6, Calcium 9.4, Triglycerides 98, Cholesterol 75, [...] 35 minutes Charges/Coding Visit Charges Inpatient E&M: 16368 Subs Hosp L2 06/30/231954 <Electronically signed by Woody Brunson DO> Cosigner Signature (if applicable): CC: ~ Signed [facility] Work Phone: 1(992) 776-686808-02-2023 Discharge summary Author Angélica Palomo [facility] June 29, 2023 3:48pm Note Date/Time June 29, 2023 2:3 2pm [facility] Medical Records Department [address] [place] [address] Emergency Department Summary 06/29/23 MR#: [id number] Acct: [id number] Name: JODIE CARDENAS Lorna Rep #:[id number] : 1940 83 From: Angélica Encinas PCP: Dr. iRos Downey, DO Status:ADM GUZMAN Location: [place] [address] HPI History of Present Illness Chief Complaint: [...] Stroke alert was called in the field. [facility] Medical History Acute exacerbation of CHF (congestive heart failure) Acute on chronic diastolic (congestive) heart failure Acute respiratory failure with hypoxia Anemia Atherosclerosis of coronary artery bypass graft without angina pectoris Atherosclerosis of coronary artery of [place] heart without angina pectoris Atrial fibrillation with [...] unit/mL injection solution 25 unit subcut BID [id number]/27/16 [History Last Taken 01/29/20] cholecalciferol (vitamin D3) [...] % (Auto) 70.0 Lymph % (Auto) 21.1 [place] % (Auto) 6.4 Eos % (Auto) 1.4 [...] 11/06/2020, patient does not have any significant meter changes records clerk Discussion w/another healthcare provider: Hospitalist and Metal Reed Tuner Discharge Plan Dx/Rx/DC Orders Clinical Impression: Essential (primary) hypertension, TIA (transient ischemic attack), Paroxysmal atrial fibrillation Disposition Disposition: Acute Care Hospital [facility] Discharge Date/Time: 06/29/23 14:54 What to do if you have Problems For any increased pain, shortness of breath, bleeding, nausea or vomiting, chest pain, or any unexpected problems, contact your Primary Care Provider. Call [facility] ([phone]) or report to the closest Emergency Room. Call 911 if necessary. 06/29/23 1548 <Electronically signed by Angélica Palomo DO> Cosigner Signature (if applicable): CC: Dr. Rios Downey, DO ~ Signed [facility] Work Phone: 1([phone]) 763-631308-02-2023 History and physical note Author Rigoberto Ashley [facility] June 29, 2023 3:09pm Note Date/Time June 29, 2023 2:2 7pm [facility] Medical Records Department [address] [place] [address] H&P Exam - Hospitalist 06/29/23 1424 MR#: [id number] Acct: [id number] Name: JODIE CARDENAS Rep #:[id number] : 1940 83 From: Rigoberto Bustos PCP: Dr. Rios Downey, Status:ADM GUZMAN Location: [place] [address] HPI - General General Date of Admission: [...] and oxygen and BiPAP and chronic A-fib [facility] Medical History Acute exacerbation of CHF (congestive heart failure) Acute on chronic diastolic (congestive) heart failure Acute respiratory failure with hypoxia Anemia Atherosclerosis of coronary artery bypass graft without angina pectoris Atherosclerosis of coronary artery of [place] heart without angina pectoris Atrial fibrillation with [...] unit/mL injection solution 25 unit subcut BID [id number]/27/16 [History Last Taken 01/29/20] cholecalciferol (vitamin D3) [...] % (Auto) 70.0, Lymph % (Auto) 21.1, [place] % (Auto) 6.4, Eos % (Auto) 1.4, [...] 2022 patient was started on oxygen and [facility] nephrology saw the patient. Patient [...] on Eliquis. Charges/Coding Visit Charges Inpatient E&M: 68799 Init Hosp L3 Procedures Hospitalists Procedures: 83032 Advncd Care Plan 30 Min 06/29/23 1509 <Electronically signed by Rigoberto Ashley MD> Cosigner Signature (if applicable): CC: Dr. Rigoberto Ashley MD; Dr. Rios Downey, DO~ Signed [facility] Work Phone: [phone]) 174-822706-17-2023 Note. MICRO - Microbiology PROCEDURE: Urine Culture [...] Locations *1: This test was performed at: [facility], [address] [place] [address], [address] , [facility] ([place])02-24-2016 Evaluation note* Diagnosis Onset Date Resolution Status Atherosclerosis of coronary artery of [place] heart without angina pectoris chronic Essential (primary) hypertension chronic H/O aortic valve replacement February 24, 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, 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 Hyperlipemia chronic Paroxysmal atrial fibrillation [facility] Work Phone: 1(303) 249-655803-29-2016 Evaluation note* Diagnosis Onset Date Resolution Status Obstructive sleep apnea rn forensic kirby Atherosclerosis of coronary artery of [place] heart without angina pectoris chronic Essential (primary) hypertension chronic H/O aortic valve replacement February 24, 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 Hyperlipemia chronic Paroxysmal atrial fibrillation [facility] Work Phone: 1(470) 654-403103-29-2016 Evaluation note* Diagnosis Onset Date Resolution Status Atherosclerosis of coronary artery of [place] heart without angina pectoris chronic Essential (primary) hypertension chronic H/O aortic valve replacement February 24, 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 Hyperlipemia chronic Paroxysmal atrial fibrillation [facility] Work Phone: Consult note Author Vladimir Bourgeois [facility] August 22, 2023 2:24pm Note Date/Time August 22, 2023 2:24pm [facility] Medical Records Department [address] [place] [address] Counseling Note - Pharmacy 08/22/23 1424 MR#: [id number] Acct: [id number] Name: JODIE CARDENAS Rep #:[id number] : 1940 83 From: Vladimir Bourgeois PCP: Dr. Rios Downey, DO Status:ADM IN Location: [place] [address] [place] Med Reconciliation Pharmacy Service has performed discharge [...] unit/mL injection solution 25 unit subcut BID [id number]/27/16 cholecalciferol (vitamin D3) 25 mcg (1,000 unit) [...] Signature (if applicable): Date CC: ~ Signed [facility] Work Phone: Evaluation + Plan note Future Appointments Appointment Date:07/25/2024 04:00:00 PM Scheduled Provider:RIOS DOWNEY DO Location:[facility] Appointment Type:PC OV Future Scheduled Tests [...] Level 06/08/22 * Complete Metabolic Panel 06/08/22 [facility] Evaluation noteNo assessment information available [facility] Work Phone: Evaluation note* Diagnosis Onset Date Resolution Status Restrictive airway disease a cute Chronic renal failure, stage 3 (moderate) chronic Chronic respiratory failure with hypoxia chronic Obstructive sleep apnea [facility] Work Phone: Evaluation note* Diagnosis Onset Date Resolution Status Restrictive airway disease a cute Chronic renal failure, stage 3 (moderate) chronic Chronic respiratory failure with hypoxia chronic Obstructive sleep apnea [facility] Atherosclerosis of coronary artery of [place] heart without angina pectoris chronic Essential (primary) hypertension chronic H/O aortic valve replacement February 24, 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, 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 Hyperlipemia chronic Paroxysmal atrial fibrillation [facility] Work Phone: Evaluation note* Diagnosis Onset Date Resolution Status Restrictive airway disease a cute Chronic respiratory failure with hypoxia chronic Obstructive sleep apnea [facility] Work Phone: Evaluation note* Diagnosis Onset Date Resolution Status Obstructive sleep apnea [facility] Work Phone: Evaluation note* Diagnosis Onset Date Resolution Status Encephalopathy acute TIA (transient ischemic attack) acute Essential (primary) hypertension chronic Paroxysmal atrial fibrillation [facility] Work Phone: Evaluation note* Diagnosis [...] ml/min chronic Hypertension chronic Obstructive sleep apnea rn forensic kirby Encephalopathy resolved [facility] Work Phone: Evaluation note* Diagnosis [...] ml/min chronic Hypertension chronic Obstructive sleep apnea rn forensic kirby Encephalopathy resolved Confusion acute Debility acute [facility] Work Phone: Evaluation note* Diagnosis [...] ml/min chronic Hypertension chronic Obstructive sleep apnea rn forensic kirby Encephalopathy resolved Debility acute Acute exacerbation of CHF (congestive heart failure) chronic [facility] Work Phone: Evaluation note* Diagnosis [...] ml/min chronic Hypertension chronic Obstructive sleep apnea rn forensic kirby Encephalopathy resolved Debility acute Aortic stenosis acute Debility acute Acute exacerbation of CHF (congestive heart failure) chronic Chronic respiratory failure chronic CKD (chronic kidney disease) stage 4, 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 [facility] Work Phone: Evaluation note* Diagnosis [...] ml/min chronic Hypertension chronic Obstructive sleep apnea rn forensic kirby Encephalopathy resolved Debility acute Aortic stenosis acute Debility acute Acute exacerbation of CHF (congestive heart failure) chronic Chronic respiratory failure chronic CKD (chronic kidney disease) stage 4, 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 Chronic respiratory failure chronic Obstructive sleep apnea [facility] Work Phone: Evaluation note* Diagnosis Onset Date Resolution Status Aortic stenosis acute Atrial fibrillation acute Coronary artery disease acut e Debility acute Depression acute Diabetes mellitus acute Dysarthria acute Expressive aphasia acute GERD (gastroesophageal reflux disease) acute Seizure disorder acute Chronic respiratory failure chronic CKD (chronic kidney disease) stage 4, 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 Hypertension chronic Obstructive sleep apnea rn forensic kirby Encephalopathy resolved Debility acute Aortic stenosis acute Debility acute Acute exacerbation of CHF (congestive heart failure) chronic Chronic respiratory failure chronic CKD (chronic kidney disease) stage 4, 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 Chronic respiratory failure chronic Obstructive sleep apnea [facility] Work Phone: Evaluation note* Diagnosis Onset Date Resolution Status Aortic stenosis acute Debility acute Acute exacerbation of CHF (congestive heart failure) chronic Chronic respiratory failure chronic CKD (chronic kidney disease) stage 4, 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 Chronic respiratory failure chronic Obstructive sleep apnea [facility] Work Phone: Hospital course Narrative No data available for this section [facility] Hospital Discharge instructions No data available for this section [facility] Hospital Discharge instructions Additional Instructions Continue take [...] tizanidine for this. I do recommend using [id number] Lidoderm patches as well to the area of maximum pain in your lower back. Return to the ER if you have a progression or worsening of your symptoms or further concerns.[facility] Work Phone: Progress note No data available for this section [facility] Reason for referral (narrative)No reason for referral information available[facility] Work Phone: Chief Complaint and Reason for Visit Chief Complaint 6 M FU RETACRIT RETACRIT RETACRIT RETACRIT Reason for Visit Atherosclerosis of c oronary artery of [place] heart without angina pectoris Essential (primary) hypertension [...] sleep apnea Atherosclerosis of coronary artery of [place] heart without angina pectoris Essential (primary) hypertension H/O aortic valve replacement H/O coronary artery bypass surgery Hyperlipemia Paroxysmal atrial fibrillation Chief Complaint 1 Y FU RETACRIT RETACRIT 6 M FU RETACRIT RETACRIT Reason for Visit Restrictive airway d isease Chronic renal failure, stage 3 (moderate) Chronic respiratory failure with hypoxia Obstructive sleep apnea Atherosclerosis of coronary artery of [place] heart without angina pectoris Essential (primary) hypertension H/O aortic valve replacement H/O coronary artery bypass surgery Hyperlipemia Paroxysmal atrial fibrillation Chief Complaint RETACRIT RETACRIT 6 M FU RETACRIT RETACRIT Reason for Visit Atherosclerosis of c oronary artery of [place] heart without angina pectoris Essential (primary) hypertension H/O aortic valve replacement H/O coronary artery bypass surgery Hyperlipemia Paroxysmal atrial fibrillation Chief Complaint RETACRIT RETACRIT 6 M FU RETACRIT RETACRIT RETACRIT Reason for Visit Atherosclerosis of c oronary artery of [place] heart without angina pectoris Essential (primary) hypertension H/O aortic valve replacement H/O coronary artery bypass surgery Hyperlipemia Paroxysmal atrial fibrillation Chief Complaint RETACRIT 6 M FU RETACRIT RETACRIT RETACRIT RETACRIT Reason for Visit Atherosclerosis of c oronary artery of [place] heart without angina pectoris Essential (primary) hypertension [...] ap kalen Atherosclerosis of coronary artery of [place] heart without angina pectoris Essential (primary) hypertension H/O aortic valve replacement Hyperlipemia Paroxysmal atrial fibrillation Chief Complaint RETACRIT RETACRIT RETACRIT retacrit 1 Y FU retacrit Reason for Visit Atherosclerosis of c oronary artery of [place] heart without angina pectoris Essential (primary) hypertension H/O aortic valve replacement Hyperlipemia Paroxysmal atrial fibrillation Chief Complaint RETACRIT RETACRIT retacrit 1 Y FU retacrit retacrit Reason for Visit Atherosclerosis of c oronary artery of [place] heart without angina pectoris Essential (primary) hypertension H/O aortic valve replacement Hyperlipemia Paroxysmal atrial fibrillation Chief Complaint retacrit 1 Y FU retacrit retacrit retacrit retacrit Reason for Visit Atherosclerosis of c oronary artery of [place] heart without angina pectoris Essential (primary) hypertension [...] Visit Atherosclerosis of c oronary artery of [place] heart without angina pectoris Essential (primary) hypertension [...] No January 31, 2021 1:32pm Power of Import/Export Analyst No January 31 1:32pm Advance Directive Response Recorded Date/ Time Advance Directives No September 11:41am Living Will No January 31, 2021 12:32pm Power of Import/Export Analyst No January 31 12:32pm Advance Directive Response Recorded Date/ Time Advance Directives No September 12:41pm Living Will No June 29, 2023 12:48pm Power of Import/Export Analyst No June 29 12:48pm Advance Directive Response Recorded Date/ Time Advance Directives No September 12:41pm Living Will No June 29, 2023 3:15pm Power of Import/Export Analyst No June 29 3:15pm Advance Directive Response Recorded Date/ Time Advance Directives No September 12:41pm Living Will No July 04, 2023 11:19am Power of Import/Export Analyst No July 04 11:19am Advance Directive Response Recorded Date/ Time Name of Medical Power of Import/Export Analyst GRAND DAUGHTER August 18, 2023 11:51am Advance Directives No September 12:41pm Living Will Yes August 18, 2023 11:51am Power of Import/Export Analyst Yes July 11:51am Advance Directive Response Recorded Date/ Time Name of Medical Power of Import/Export Analyst GRAND DAUGHTER August 18, 2023 5:51pm Advance Directives No September 12:41pm Living Will Yes August 18, 2023 5:51pm Power of Import/Export Analyst Yes July 5:51pm Advance Directive Response Recorded Date/ Time Name of Medical Power of Import/Export Analyst MARIA LUISA-GRANDDAUGHTER August 31, 2023 4:30pm Name of Medical Power of Import/Export Analyst MARIA LUISA FRAME- GRANDDAUGHTER September 16, 2023 4:13pm Advance Directives No September 12:41pm Living Will Yes September 16 4:13pm Power of Import/Export Analyst Yes September 16, 2023 4:13pm Name of Medical Power of Import/Export Analyst GRAND DAUGHTER August 18, 2023 5:51pm Advance Directive Response Recorded Date/ Time Name of Medical Power of Import/Export Analyst MARIA LUISA-GRANDDAUGHTER August 31, 2023 4:30pm Name of Medical Power of Import/Export Analyst MARIA LUISA FRAME- GRANDDAUGHTER September 16, 2023 8:46pm Advance Directives No September 12:41pm Living Will Yes September 16 8:46pm Power of Import/Export Analyst Yes September 16, 2023 8:46pm Name of Medical Power of Import/Export Analyst GRAND DAUGHTER August 18, 2023 5:51pm Advance Directive Response Recorded Date/ Time Name of Medical Power of Import/Export Analyst MARIA LUISA-GRANDDAUGHTER August 31, 2023 3:30pm Name of Medical Power of Import/Export Analyst MARIA LUISA FRAME- GRANDDAUGHTER September 16, 2023 7:46pm Advance Directives No September 11:41am Living Will Yes September 16 7:46pm Power of Import/Export Analyst Yes September 16, 2023 7:46pm Name of Medical Power of Import/Export Analyst GRAND DAUGHTER August 18, 2023 4:51pm Advance Directive Response Recorded Date/ Time Name of Medical Power of Import/Export Analyst MARIA LUISA ALARCON- GRANDDAUGHTER September 16, 2023 7:46pm Advance Directives No September 11:41am Living Will Yes September 16 7:46pm Power of Import/Export Analyst Yes September 16, 2023 7:46pm Advance Directive Response Recorded Date/ Time Advance Directives No September 12:41pm Living Will Yes September 16 8:46pm Power of Import/Export Analyst Yes September 16, 2023 8:46pm Advance Directive Response Recorded Date/ Time Name of Medical Power of Import/Export Analyst maria luisa alarcon February 15, 2024 11:56pm Advance Directives No September 12:41pm Living Will Yes February 15, 2024 11:56pm Power of Import/Export Analyst Yes February 14 11:56pm Advance Directive Response Recorded Date/ Time Name of Medical Power of Import/Export Analyst VIVIEN Malin February 19, 2024 12:00pm Advance Directives No September 12:41pm Living Will Yes February 19, 2024 12:00pm Power of Import/Export Analyst Yes February 18 12:00pm Name of Medical Power of Import/Export Analyst maria luisa alarcon February 15, 2024 11:56pm Advance Directive Response Recorded Date/ Time Living Will Yes February 19, 2024 12:00pm Do you have a Healthcare Power of Import/Export Analyst? Yes February 19, 2024 12:00pm Advance Directives No September 12:41pm Advance Directive Response Recorded Date/ Time Advance Directives No September 12:41pm Advance Directive Response Recorded Date/ Time Do you have a Healthcare Power of Import/Export Analyst? Yes May 31, 2025 10:22pm Name of Medical Power of Import/Export Analyst Maria Luisa Alarcon May 31, 2025 10:22pm Advance Directives No September 12:41pm Advance Directive Response Recorded Date/ Time Living Will Yes February 19, 2024 12:00pm Do you have a Healthcare Power of Import/Export Analyst? Yes February 19, 2024 12:00pm Do you have a Healthcare Power of Import/Export Analyst? Yes May 31, 2025 10:22pm Name of Medical Power of Import/Export Analyst Maria Luisa Alarcon May 31, 2025 10:22pm [...] Provider, Referrin g Provider Active Hector Sheldon FIRE PATROLLER, FIRE PATROLLER-C Attending Provider Active Team Status: Active Member [...] DO Primary Care Provider Active Dr. Angélica aPlomo DO Emergency Provider Active Dr. Rigoberto Ashley [...] Ashraf MD Other Provider Active Gosia Saenz FIRE PATROLLER, FIRE PATROLLER-C Other Provider Active Team Status: Active Member [...] Ashraf MD Other Provider Active Gosia Saenz FIRE PATROLLER, FIRE PATROLLER-C Other Provider Active Team Status: Inactive Member [...] Ashraf MD Other Provider Active Gosia Saenz FIRE PATROLLER, FIRE PATROLLER-C Other Provider Active Team Status: Inactive Member Role Status Dates Dr. Rios Downey , DO Primary Care Provider, Referrin g Provider Active Gosia Saenz FIRE PATROLLER, FIRE PATROLLER-C Attending Provider Active Team Status: Active Member [...] Ashraf MD Other Provider Active Gosia Saenz FIRE PATROLLER, FIRE PATROLLER-C Other Provider Active Team Status: Inactive Member [...] 2025 End: March 14, 2025 Gosia Saenz FIRE PATROLLER, FIRE PATROLLER-C Attending Provider Active Start: March 14, 2025 [...] End: March 14, 2025 Gosia Saenz NP, FIRE PATROLLER-C Attending Provider Active Start: March 14, 2025 [...] 2025 End: June 13, 2025 Gosia Saenz FIRE PATROLLER, FIRE PATROLLER-C Attending Provider Active Start: June 13, 2025 [...] section and content) DATE CREATED AUTHOR 05/29/2023 [facility] ([place]) DATE CREATED AUTHOR AUTHOR'S [...] BE BASED ON THE PRIMARY CLINICAL RECORDS. [facility], [facility]. provides no warranty or guarantee of the accuracy or completeness of information in this document.
[2025-07-06 19:50] LABS: Potassium 5.4 mmol/L (3.3-5.1)
--- NOTE | 2025-07-06 20:22 | ECHOD_ITS ---
Reason For Study Reason For Study: CHF Procedure This was a 2D Doppler, Color Flow transthoracic echocardiogram. The study was technically difficult. Definity deferred due to pulmonary pressures. Exam performed portable in patient room. Left Ventricle Normal LV size. Mild concentric left ventricular hypertrophy. D shaped septum in systole and diastole. Left ventricular systolic function is lower limits of normal. Right Ventricle Mildly dilated right ventricle. Mild global right ventricular systolic dysfunction. Tricuspid Valve Normal tricuspid valve. Moderate (2+) tricuspid valve insufficiency. Pulmonary artery systolic pressure is 70 mmHg. Severe pulmonary hypertension. Aortic Valve Trisinus/trileaflet aortic valve. Moderate focal aortic valve calcification. Peak aortic valve gradient 19 mmHg. Mean aortic valve gradient 9 mmHg. Great Vessels The pulmonary artery is normal size. Inferior vena cava collapse with sniff. The inferior vena cava is dilated. Pericardium/Pleural No pericardial effusion. MMode/2D Measurements & Calculations LVIDd: 5.3 cm IVSd: 1.3 cm Ao root diam: 3.3 cm LVIDs: 3.6 cm LVPWd: 1.3 cm FS: 32.2 % LAV(MOD-bp): 100.0 ml LA dimension(2D): 5.0 cm LA A4 area: 26.6 cm2 LAV(MOD-bp) Indexed: 47.1 ml/m2 LAV(MOD-sp2): 85.9 ml LAV(MOD-sp4): 94.6 ml RA A4 area: 21.0 cm2 Doppler Measurements & Calculations Ao V2 max: 220.4 cm/sec LV V1 max: 140.6 cm/sec TR max malini: 401.3 cm/sec Ao max P.6 mmHg LV V1 max P.9 mmHg TR max P.4 mmHg Ao V2 mean: 136.4 cm/sec LV V1 mean P.7 mmHg Ao mean P.3 mmHg LV V1 mean: 101.6 cm/sec Ao V2 VTI: 55.6 cm LV V1 VTI: 31.8 cm AV (velocity ratio): 0.57 ECHO/Echo Complete Interpretation Summary Normal LV size. Left ventricular systolic function is lower limits of normal. D shaped septum in systole and diastole. Mild concentric left ventricular hypertrophy. Pulmonary artery systolic pressure is 70 mmHg. Severe pulmonary hypertension. Ordering Physician: Mikey Macias Referring Physician: SOBEIDA MIRANDA Performed By: Judy Wynne RCS
[2025-07-06] MEDS: APIXABAN 2.5 MG TABLET (WCH) PO (21:14)
[2025-07-06] MEDS: 0.9% Saline Lock 10 ML Syringe IV (21:22)
[2025-07-06 21:26] LABS: Troponin T High Sens 4 HR 103 ng/L (<=22)
[2025-07-07] VITALS (9 sets, daily range): BP systolic 129–158; BP diastolic 68–77; PULSE 55–71; RESP 16–20; TEMP 35.4–36.8; O2SAT 93–100; BMI 40.6
--- NOTE | 2025-07-07 01:59 | CPS ---
patient placed on home bipap with 2L bleed at this time
[2025-07-07 06:48] LABS: Hematocrit 30.7 % (40-54); Hemoglobin 9.9 g/dL (13.0-16.5); Immature Granulocytes Count 0.030 X10^3/uL (0.0-0.0); Mean Corp Hgb Conc 32.2 g/dL (32-36); Mean Corpuscular Volume 100.7 fL (80-94); Mean Platelet Vol. 11.6 fl (6.2-12.0); NRBC Flagged by Analyzer 0.8 % (0-5); Platelet Count 115 K/mm3 (150-450); RBC Distribution Width CV 16.3 % (11.6-14.6); RBC Distribution Width SD 58.0 fl (35.1-43.9); Red Blood Count 3.05 M/mm3 (4.6-6.2); White Blood Count 7.9 K/mm3 (4.4-11.0)
[2025-07-07 07:08] LABS: Anion Gap 16 (5-15); BUN 81 mg/dL (4-19); BUN/Creat Ratio 28.3 RATIO (10-20); Calcium,Total 9.8 mg/dL (7.6-11.0); Carbon Dioxide 13.3 mmol/L (21.0-32.0); Chloride 109 mmol/L (98-108); Estimated Creatinine Clearance 23.63 ml/min (50-250); Glucose 89 mg/dL (70-99); Potassium 5.5 mmol/L (3.3-5.1)
[2025-07-07] MEDS: Cholecalciferol (VIT D3) 25 MCG TABLET (1,000 UNITS) PO (10:57)
[2025-07-07] MEDS: APIXABAN 2.5 MG TABLET (WCH) PO ×2 (10:58→22:36)
[2025-07-07] MEDS: Aspirin E.C. 81 MG Tablet PO (10:58)
[2025-07-07] MEDS: Insulin Glargine-YFGN 100 UNIT/ML Pen 10 UNIT SC ×2 (11:05→22:36)
--- NOTE | 2025-07-07 16:47 | PCM.PN.HOSP ---
Reason for Visit Chief Complaint: Shortness of breath Subjective Subjective Patient was seen and examined today, his granddaughter was in the room at the time of my examination. Patient is currently on 3 L of oxygen via nasal cannula, according to the granddaughter, patient has been on oxygen for around 11 years. Patient has been complaining of some hip pain today, he denies any trauma, I wrote for Vicodin for the patient Objective Data Objective Data Vital Signs: Vital Signs Temp Pulse Resp BP Pulse Ox O2 Del Method O2 Flow Rate 97.5 F L 57 L 20 H 150/74 H 100 Nasal Cannula 3 07/07/25 16:09 07/07/25 16:09 07/07/25 16:09 07/07/25 16:09 07/07/25 16:07/07/25 16:07/07/25 16:09 Oxygen Flow Rate (L/min) 3 Oxygen Delivery Method Nasal Cannula Weight: 114.5 kg Body Mass Index (BMI) 40.6 Intake & Output: Intake and Output for Last 24 Hours 07/05/25 07/06/25 07/07/25 23:59 23:59 23:59 Intake Total 280 / 400 520 / 520 Output Total 1150 / 1150 Balance 280 / 0 -630 / -630 Lab / Micro Data 07/07/25 05:33 07/07/25 05:33 Labs: Laboratory Results - last 24 hr 07/06/25 16:18: WBC 6.7, RBC 3.20 L, Hgb 10.4 L, Hct 32.4 L, MCV 101.3 H, MCH 32.5 H, MCHC 32.1, RDW Std Deviation 60.4 H, RDW Coeff of Yeny 16.7 H, Plt Count 117 L, MPV 11.7, Immature Gran % (Auto) 0.700, Neut % (Auto) 70.8 H, Lymph % (Auto) 16.9 L, Charles % (Auto) 9.3, Eos % (Auto) 1.9, Baso % (Auto) 0.4, Absolute Neuts (auto) 4.7, Absolute Lymphs (auto) 1.13, Nucleated RBC % 0.4, Sodium 137, Potassium 6.3 H*, Chloride 108, Carbon Dioxide 14.7 L, Anion Gap 15, BUN 76 H, Creatinine 3.01 H, Estim Creat Clear Calc 22.08 L, Est GFR (MDRD) Non-Af 20 L, BUN/Creatinine Ratio 25.3 H, Glucose 119 H, Calcium 9.4, Troponin T High S[place] 104 H*, [place] [address] H 07/06/25 17:42: POC Glucose 91 07/06/25 18:40: Potassium 5.4 H, Troponin T Hi Sens 2 Hr 96 H* 07/06/25 20:15: Troponin T Hi Sens 4Hr 103 H* 07/06/25 21:10: POC Glucose 80 07/07/25 05:33: WBC 7.9, RBC 3.05 L, Hgb 9.9 L, Hct 30.7 L, MCV 100.7 H, MCH 32.5 H, MCHC 32.2, RDW Std Deviation 58.0 H, RDW Coeff of Yeny 16.3 H, Plt Count 115 L, MPV 11.6, Immature Gran % (Auto) 0.400, Neut % (Auto) 75.4 H, Lymph % (Auto) 14.1 L, Charles % (Auto) 8.8, Eos % (Auto) 0.9, Baso % (Auto) 0.4, Absolute Neuts (auto) 6.0, Absolute Lymphs (auto) 1.12, Nucleated RBC % 0.8, Sodium 138, Potassium 5.5 H, Chloride 109 H, Carbon Dioxide 13.3 L, Anion Gap 16 H, BUN 81 H, Creatinine 2.86 H, Estim Creat Clear Calc 23.63 L, Est GFR (MDRD) Non-Af 21 L, BUN/Creatinine Ratio 28.3 H, Glucose 89, Hemoglobin A1c 5.7, Calcium 9.8, TSH 7.660 H 07/07/25 06:25: POC Glucose 85 07/07/25 11:02: POC Glucose 122 H 07/07/25 16:05: POC Glucose 100 Micro: Microbiology 07/06/25 16:45 Mucosa - Nose SARS-CoV-2, Influenza & RSV (PCR) - Final Radiography Diagnostic Testing: Radiology Impression Chest X-Ray 07/06/25 16:45 IMPRESSION: CARDIOMEGALY. NO ACUTE FINDINGS. Reading Location: [facility] Physical Exam Const alert, oriented x3 and no apparent distress Constitutional Narrative: Patient has class III obesity HEENT head/scalp atraumatic and moist oral mucous membranes Eyes PERRL, EOMs intact bilaterally and conjunctivae normal Neck supple and no JVD Resp normal respiratory effort, no retractions and no use of accessory muscles Resp Narrative: Breath sounds are diminished bilaterally Auscultation: Negative for rales, rhonchi or wheezes Cardio regular rate, regular rhythm, S1 normal heart sound, S2 normal heart sound and no murmurs GI soft to palpation, non-tender and non-distended GI Narrative: Patient has class III obesity Extremity Extremity Narrative: Lower leg edema is noted bilaterally General Extremity: edema bilateral Neuro oriented x3, CN's II-XII intact bilaterally, moves all extremities, no focal motor deficits and no sensory deficits noted Speech: speech normal Psych affect normal Assessment & Plan Assessment/Plan (1) Acute exacerbation of CHF (congestive heart failure): QUALIFIERS: Heart failure type: combined systolic and diastolic Qualified Code(s): I50.43 - Acute on chronic combined systolic (congestive) and diastolic (congestive) heart failure PLAN: Plan 1. Acute exacerbation of chronic congestive heart failure with reduced EF-continue IV Lasix-I will increase the dosage to 40 mg every 8 hours #2 chronic hypoxic respiratory failure-pulse ox will be monitored #3 chronic kidney disease stage IV-complicates care, management, recovery, and prognosis #4 hyperkalemia-patient's potassium today was 5.5, BMP will be rechecked tomorrow #5 seizure disorder-patient is on Keppra #6 chronic depression-patient is on Zoloft and Zyprexa #7 type 2 diabetes-blood sugars will be monitored, sliding scale insulin will be administered as indicated #8 class III obesity-complicates care, management, recovery, and prognosis Total clinical time spent by myself addressing the patient's medical issues, reviewing all of his data, and collaborating with patient's care team: 50 minutes Charges/Coding Visit Charges Inpatient E&M: 76303 [facility] Hosp L3
[2025-07-08] VITALS (10 sets, daily range): BP systolic 102–141; BP diastolic 53–90; PULSE 50–70; RESP 16–18; TEMP 35.8–36.7; O2SAT 94–100; BMI 38.0
[2025-07-08 07:14] LABS: Anion Gap 17 (5-15); BUN 89 mg/dL (4-19); BUN/Creat Ratio 29.7 RATIO (10-20); Calcium,Total 9.4 mg/dL (7.6-11.0); Carbon Dioxide 13.3 mmol/L (21.0-32.0); Chloride 107 mmol/L (98-108); Estimated Creatinine Clearance 21.13 ml/min (50-250); Glucose 89 mg/dL (70-99); Potassium 4.9 mmol/L (3.3-5.1)
[2025-07-08] MEDS: HYDROcodone Bitartrate/Apap 5/325 Tablet PO (11:06)
[2025-07-08] MEDS: APIXABAN 2.5 MG TABLET (WCH) PO ×2 (11:07→22:54)
[2025-07-08] MEDS: Aspirin E.C. 81 MG Tablet PO ×2 (11:07→22:51)
[2025-07-08] MEDS: Cholecalciferol (VIT D3) 25 MCG TABLET (1,000 UNITS) PO (11:09)
--- NOTE | 2025-07-08 12:30 | CASEMGMT ---
ALAN WALTER Assessment: Face to Face with pt for initial transition planning/care coordination assessment. ALAN WALTER introduced self and role at [facility], pt voices understanding and consents to assessment. Pt is A&O x4 and answers all questions appropriately at this time. Pt sitting up in chair in no distress. Care providers, pharmacy, and demographics verified/updated. Strata: 3 Admitting Dx: CHF Exacerbation PCP: Shayan Specialists: PAPO; Son, Tso; Angely, Nephrology; [facility]; Kenzie, Diabetes. Preferred Pharmacy: [facility] Insurance: [employer] Prescription Benefit: yes LNOK: Maria Luisa ANDUJAR Living Arrangements: Pt lives with granddaughter in a 1 level home with 3 steps to enter. ADLs: Pt requires some assistance at baseline with cooking, cleaning, showers, getting shoes and socks on. Transportation: Pt family provides transportation. DME: wc, FWW, shower chair, grab bars, glucometer and supplies. HHC/SNF: [facility] and [facility]. Pt granddaughter states pt is weaker than his baseline and doesn't feel she scan care for him at home at this point, preference would be [facility] as first choice and [place] [facility] as second option, pt agreeable. Pt states no further concerns/needs. RN JOSE ANGEL notified ALAN WALTER on unit. CM to follow. Advised pt to ask CM if any further question/concerns/needs arise, voices understanding. Pt Goal: SNF Plan: SNF [facility] CM
[2025-07-08] MEDS: Insulin Glargine-YFGN 100 UNIT/ML Pen 10 UNIT SC (12:35)
--- NOTE | 2025-07-08 13:08 | PN.HOSP_ITS ---
Subjective Subjective Still feels short of breath despite being on his home oxygen requirements Objective Data Objective Data Vital Signs: Vital Signs Temp Pulse Resp BP Pulse Ox O2 Del Method O2 Flow Rate 97.5 F L 50 L 16 135/68 H 99 Nasal Cannula 2 07/08/25 11:04 07/08/25 11:04 07/08/25 11:04 07/08/25 11:04 07/08/25 11:04 07/08/25 11:04 07/08/25 11:04 Oxygen Flow Rate (L/min) 2 Oxygen Delivery Method Nasal Cannula Weight: 236 lb 12.423 oz Body Mass Index (BMI) 38.0 Intake & Output: Intake and Output for Last 24 Hours 07/07/25 07/08/25 07/09/25 03:59 03:59 03:59 Intake Total 400 / 400 800 / 800 Output Total 400 / 400 1600 / 1600 700 / 700 Balance 0 / 0 -800 / -800 -700 / -700 Lab / Micro Data 07/07/25 05:33 07/08/25 06:01 Labs: Laboratory Results - last 24 hr 07/07/25 16:05: POC Glucose 100 07/07/25 22:01: POC Glucose 123 H 07/08/25 06:00: POC Glucose 96 07/08/25 06:01: Sodium 138, Potassium 4.9, Chloride 107, Carbon Dioxide 13.3 L, Anion Gap 17 H, BUN 89 H, Creatinine 2.99 H, Estim Creat Clear Calc 21.13 L, Est GFR (MDRD) Non-Af 20 L, BUN/Creatinine Ratio 29.7 H, Glucose 89, Calcium 9.4 07/08/25 12:30: POC Glucose 125 H Micro: Microbiology 07/06/25 16:45 Mucosa - Nose SARS-CoV-2, Influenza & RSV (PCR) - Final Physical Exam Narrative General: Alert, Oriented x3, Cooperative, No apparent distress HEENT: Atraumatic, PERRLA, EOMI, Normocephalic Oral: Moist Mucosa Neck: Supple, No JVD Lungs: Diminished, Normal air movement, No rhonchi, No wheeze, No rales Cardiovascular: Regular rate, Regular Rhythm, Normal S1, Normal S2, No murmurs Abdomen: Soft, Non Tender, Non-Distended, No Hepato-splenomegaly Extremities: Edema, Capillary Refill Less than 3 Seconds Skin: No rashes, No breakdown Musculoskeletal: No Tenderness to Palpation of Joints or Extremities Neurological: No focal neurological deficits, moves all extremities Psych/Mental Status: Flat Assessment & Plan Assessment/Plan (1) Acute exacerbation of CHF (congestive heart failure): QUALIFIERS: Heart failure type: combined systolic and diastolic Q ualified Code(s): I50.43 - Acute on chronic combined systolic (congestive) and diastolic (congestive) heart failure PLAN: Plan 1. Acute on chronic systolic CHF exacerbation in the setting of chronic hypoxic respiratory failure/essential HTN/HLD/paroxysmal A-fib ? He is on his baseline oxygen of 2-1/2 L at rest ? Continue with Lasix 40 mg IV twice daily ? His lower extremities are wrapped, will continue ? Continue his home blood pressure medications ? Continue with Eliquis ?Continue with his home blood pressure medications, will monitor make adjustments as necessary 2. DM2 with CKD 4 ? Continue with insulin ? Accu-Cheks ACHS ? Will monitor make adjustments as necessary ? Renal function is near baseline, will monitor ? She did have an episode of hyperkalemia on admission we will hold his potassium 3. Seizure disorder ? Stable ? Continue with Keppra 4. Depression/anxiety ? Stable ? Continue with his home medications 5. Gout ? Stable ? Continue with allopurinol DVT: Eliquis Charges/Coding Visit Charges Inpatient E&M: 36098 Subs Hosp L2
--- NOTE | 2025-07-08 14:30 | CASEMGMT ---
RN OJSE ANGEL updated that patient prefers 1. TCU and 2. [facility] for SNF at discharge. RN JOSE ANGEL made referral to TCU, TCU is unable to accept patient at this time. DC pre planning advisor to make referral to [facility]. CM will continue to follow this patient and plan for a safe discharge.
--- NOTE | 2025-07-08 16:00 | CASEMGMT ---
Addendum entered by Adrianne Valenzuela 07/09/25 09:32: Pts granddaughter updated that TCU has declined and [facility] accepted. She is agreeable to proceed with [facility] at discharge. RN CM updated. Adrianne Valenzuela DC Planning Asst. Addendum entered by Adrianne Valenzuela 07/08/25 16:38: [facility] accepted. Adrianne Valenzuela DC Planning Asst. Original Note: Discharge Planning Referral sent to [facility]. Adrianne Valenzuela DC Planning Asst.
--- NOTE | 2025-07-08 16:27 | CHAPLAIN ---
Type of Pastoral Visit ___ Initial Visit ___ Follow-up Visit ___ On-call Visit ___ General Patient Visit ___ Spiritual Assessment ___ Family Conference ___ Bereavement ___ Rapid Response ___ Code Blue ___ Other (describe below) Pastoral Care Referral From ___ Patient ___ Family ___ Nurse ___ Physician ___ Fuel Cell Builder ___ [employer] Team Leader ___ Other (describe below) Sacrament/Intervention ___ Active listening ___ Anointing ___ Buddhism ___ Bereavement ___ Communion ___ Cora exploration ___ ___ Life review ___ Prayer ___ Reconciliation ___ Sacrament of Sick ___ Supportive presence ___ Wedding ___ Other (describe below) Pastoral Comments two attempts made to visit but patient is soundly sleeping; left a calling card
[2025-07-09 04:41] VITALS: BP 127/67; PULSE 51; RESP 16; TEMP 36.4; O2SAT 100
[2025-07-09 05:59] LABS: Hematocrit 30.5 % (40-54); Hemoglobin 10.0 g/dL (13.0-16.5); Immature Granulocytes Count 0.040 X10^3/uL (0.0-0.0); Mean Corp Hgb Conc 32.8 g/dL (32-36); Mean Corpuscular Volume 98.4 fL (80-94); Mean Platelet Vol. 11.5 fl (6.2-12.0); NRBC Flagged by Analyzer 0.8 % (0-5); Platelet Count 115 K/mm3 (150-450); RBC Distribution Width CV 16.8 % (11.6-14.6); RBC Distribution Width SD 56.8 fl (35.1-43.9); Red Blood Count 3.10 M/mm3 (4.6-6.2); White Blood Count 7.9 K/mm3 (4.4-11.0)
[2025-07-09 06:00] VITALS: BMI 38.5
[2025-07-09 06:27] LABS: Anion Gap 15 (5-15); BUN 88 mg/dL (4-19); BUN/Creat Ratio 30.2 RATIO (10-20); Calcium,Total 9.2 mg/dL (7.6-11.0); Carbon Dioxide 14.4 mmol/L (21.0-32.0); Chloride 109 mmol/L (98-108); Estimated Creatinine Clearance 21.79 ml/min (50-250); Glucose 80 mg/dL (70-99); Potassium 4.4 mmol/L (3.3-5.1)
[2025-07-09 09:24] VITALS: PULSE 78
[2025-07-09] MEDS: Cholecalciferol (VIT D3) 25 MCG TABLET (1,000 UNITS) PO (09:25)
[2025-07-09] MEDS: APIXABAN 2.5 MG TABLET (WCH) PO ×2 (09:26→22:15)
[2025-07-09] MEDS: Insulin Glargine-YFGN 100 UNIT/ML Pen 10 UNIT SC ×2 (09:39→22:18)
--- NOTE | 2025-07-09 09:45 | PN.HOSP_ITS ---
Subjective Subjective On his baseline oxygen but feels short of breath. Echo with severe pulmonary hypertension Objective Data Objective Data Vital Signs: Vital Signs Temp Pulse Resp BP Pulse Ox O2 Del Method O2 Flow Rate 97.6 F L 78 16 127/67 H 100 Nasal Cannula 2 07/09/25 04:41 07/09/25 09:24 07/09/25 04:41 07/09/25 04:41 07/09/25 04:41 07/09/25 08:05 07/09/25 08:05 Oxygen Flow Rate (L/min) 2 Oxygen Delivery Method Nasal Cannula Weight: 239 lb 13.807 oz Body Mass Index (BMI) 38.5 Intake & Output: Intake and Output for Last 24 Hours 07/08/25 07/09/25 07/10/25 03:59 03:59 03:59 Intake Total 800 / 800 480 / 480 Output Total 1600 / 1600 1000 / 1000 600 / 600 Balance -800 / -800 -520 / -520 -600 / -600 Lab / Micro Data 07/09/25 05:35 07/09/25 05:35 Labs: Laboratory Results - last 24 hr 07/08/25 12:30: POC Glucose 125 H 07/08/25 16:51: POC Glucose 92 07/08/25 22:46: POC Glucose 59 L 07/09/25 00:17: POC Glucose 108 H 07/09/25 05:35: WBC 7.9, RBC 3.10 L, Hgb 10.0 L, Hct 30.5 L, MCV 98.4 H, MCH 32.3 H, MCHC 32.8, RDW Std Deviation 56.8 H, RDW Coeff of Yeny 16.8 H, Plt Count 115 L, MPV 11.5, Immature Gran % (Auto) 0.500, Neut % (Auto) 70.5 H, Lymph % (Auto) 17.7 L, [place] % (Auto) 7.5, Eos % (Auto) 3.3, Baso % (Auto) 0.5, Absolute Neuts (auto) 5.6, Absolute Lymphs (auto) 1.40, Nucleated RBC % 0.8, Sodium 139, Potassium 4.4, Chloride 109 H, Carbon Dioxide 14.4 L, Anion Gap 15, BUN 88 H, C reatinine 2.92 H, Estim Creat Clear Calc 21.79 L, Est GFR (MDRD) Non-Af 21 L, B UN/Creatinine Ratio 30.2 H, Glucose 80, Calcium 9.2 07/09/25 06:02: POC Glucose 107 H Micro: Microbiology 07/06/25 16:45 Mucosa - Nose SARS-CoV-2, Influenza & RSV (PCR) - Final Radiography Diagnostic Testing: Radiology Impression Echocardiogram 07/06/25 20:22 Interpretation Summary Normal LV size. Left ventricular systolic function is lower limits of normal. D shaped septum in systole and diastole. Mild concentric left ventricular hypertrophy. Pulmonary artery systolic pressure is 70 mmHg. Severe pulmonary hypertension. Ordering Physician: Mikey Macias Referring Physician: SOBEIDA MIRANDA Performed By: Judy Wynne RCS Physical Exam Narrative General: Alert, Oriented x3, Cooperative, No apparent distress HEENT: Atraumatic, PERRLA, EOMI, Normocephalic Oral: Moist Mucosa Neck: Supple, No JVD Lungs: Diminished, Normal air movement, No rhonchi, No wheeze, No rales Cardiovascular: Regular rate, Regular Rhythm, Normal S1, Normal S2, No murmurs Abdomen: Soft, Non Tender, Non-Distended, No Hepato-splenomegaly Extremities: Edema, Capillary Refill Less than 3 Seconds Skin: No rashes, No breakdown Musculoskeletal: No Tenderness to Palpation of Joints or Extremities Neurological: No focal neurological deficits, moves all extremities Psych/Mental Status: Flat Assessment & Plan Assessment/Plan (1) Acute exacerbation of CHF (congestive heart failure): QUALIFIERS: Heart failure type: combined systolic and diastolic Q ualified Code(s): I50.43 - Acute on chronic combined systolic (congestive) and diastolic (congestive) heart failure PLAN: Plan 1. Acute on chronic systolic CHF exacerbation in the setting of chronic hypoxic respiratory failure/essential HTN/HLD/paroxysmal A-fib ? He is on his baseline oxygen of 2-1/2 L at rest ? Continue with Lasix 40 mg IV twice daily ? His lower extremities are wrapped, will continue ? Continue his home blood pressure medications ? Continue with Eliquis ?Continue with his home blood pressure medications, will monitor make adjustments as necessary ? Echo from 07/08/2025 with a PASP of 70 mmHg and D-shaped septum in systole and diastole, EF was lower range normal ? Will consult pulmonology while inpatient for possible medication adjustments, renal function prevents aggressive diuresis 2. DM2 with CKD 4 ? Continue with insulin ? Accu-Cheks ACHS ? Will monitor make adjustments as necessary ? Renal function is near baseline, will monitor ? She did have an episode of hyperkalemia on admission we will hold his potassium 3. Seizure disorder ? Stable ? Continue with Keppra 4. Depression/anxiety ? Stable ? Continue with his home medications 5. Gout ? Stable ? Continue with allopurinol DVT: Taras Charges/Coding Visit Charges Inpatient E&M: 42457 Subs Hosp L2
[2025-07-09 10:40] VITALS: BP 136/78; PULSE 68; RESP 18; TEMP 36.1; O2SAT 97
--- NOTE | 2025-07-09 15:07 | CHAPLAIN ---
Type of Pastoral Visit _x__ Initial Visit ___ Follow-up Visit ___ On-call Visit ___ General Patient Visit ___ Spiritual Assessment ___ Family Conference ___ Bereavement ___ Rapid Response ___ Code Blue ___ Other (describe below) Pastoral Care Referral From _x__ Patient ___ Family ___ Nurse ___ Physician ___ Shrimper ___ Call Center Representative ___ Other (describe below) Sacrament/Intervention _x__ Active listening ___ Anointing ___ Methodist ___ Bereavement ___ Communion ___ Cora exploration ___ _x__ Life review _x__ Prayer ___ Reconciliation ___ Sacrament of Sick _x__ Supportive presence ___ Wedding ___ Other (describe below) Pastoral Comments patient is alert and awake today; pt does engage in conversation but does not lead or contribute much; pt reviews some of his work history and how he is managing because a granddaughter is living with him; conversation and life review done;
--- NOTE | 2025-07-09 16:01 | CON.PCM.CC_ITS ---
HPI Consult Data Date of Consult: 07/09/25 HPI Narrative HPI Narrative: JODIE CARDENAS, is a 85 M who presents [facility] Medical History PAF (paroxysmal atrial fibrillation) AUTUMN treated with BiPAP Former smoker Chronic respiratory failure with hypoxia Atherosclerosis of coronary artery of [place] heart without angina pectoris Essential (primary) hypertension Chronic combined systolic and diastolic CHF (congestive heart failure) Lymphedema COPD (chronic obstructive pulmonary disease) Ocular migraine TIA (transient ischemic attack) Anemia Type 2 diabetes mellitus without complications Obstructive sleep apnea Atherosclerosis of coronary artery bypass graft without angina pectoris Non-rheumatic aortic stenosis Left bundle branch block Morbid obesity with BMI of 45.0-49.9, adult Chronic renal failure, stage 3 (moderate) Hyperlipemia Venous insufficiency of both lower extremities Home Medications ?Medication ?Instructions ?Recorded ?Last Taken ?Type aspirin 81 mg tablet,delayed 81 mg PO DAILY HEART HEAL TH 07/11/16 07/03/23 History release multivitamin 1 ea PO DAILY [facility] 07/11[facility]16 08/18/23 History insulin regular human 100 unit/mL 10 unit subcut BID D IABETES 07/24/16 07/02/23 History injection solution cholecalciferol (vitamin D3) 25 25 mcg PO DAILY SUPPLE MENT 10/26/16 08/18/23 History mcg (1,000 unit) tablet sertraline 25 mg tablet 25 mg PO DAILY DEPRESSION 08/18/23 History famotidine 20 mg tablet 20 mg PO DAILY GERD 11/13/19 08/18/23 History olanzapine 2.5 mg tablet 2.5 mg PO QHS DEPRESSION 08/17/23 History allopurinol 300 mg tablet 300 mg PO DAILY GOUT 2 08/18/23 History apixaban 2.5 mg tablet (Eliquis) 2.5 mg PO BID BLOOD T HINNER 10/07/22 07/03/23 History menthol 0.44 %-zinc oxide 20.6 % 1 applic topical BID 08/18/23 08/18/23 History topical ointment (Calmoseptine) nystatin 100,000 unit/gram topical 1 applic topical BI D 08/18/23 08/18/23 History powder (Nystop) nitroglycerin 0.4 mg sublingual 0.4 mg sublingual Q5-1 5M PRN chest 03/23/24 Unknown Rx tablet (Nitrostat) pain #25 tabs amlodipine 2.5 mg tablet 2.5 mg PO DAILY #90 tabs Unknown Rx furosemide 40 mg tablet 40 mg PO QDAY #90 tabs 01/25 Unknown Rx insulin NPH isoph U-100 human 100 10 unit subcut BID D IABETES 05/31/25 Unknown History unit/mL subcutaneous suspension levetiracetam 500 mg tablet 500 mg PO BID 05/31/25 Unk nown History calcitriol 0.5 mcg capsule 0.5 mcg PO MOWEFR 07/06/25 Unknown History isosorbide mononitrate 60 mg 60 mg PO DAILY 07/06/25 U nknown History tablet,extended release 24 hr potassium chloride 20 mEq 20 meq PO DAILY 07/06/25 Unk nown History tablet,extended release(part/cryst) Allergy/AdvReac Type Severity Reaction Status Date / Time Penicillins (PCN) Allergy Swelling Verified 07/06/25 15:29 Family History Father Myocardial infarction Mother CVA (cerebral vascular accident) Brother CAD (coronary artery disease) Diabetes Surgical History Hx of cholecystectomy (01/13/17) H/O aortic valve replacement (02/24/16) H/O coronary artery bypass surgery (02/24/16) Social History household members: family and other details: Granddaughter. 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 Smoking Status: Former smoker how long ago did patient quit smokin + years alcohol intake: never substance use type: does not use caffeine: Yes Type: carbonated beverages and tea Objective Data Objective Data Vital Signs: Vital Signs Last response 3 Temperature 36.1 C L 07/09/25 10:40 Temperature Source Temporal 07/09/25 10:40 Pulse Rate 68 07/09/25 10:40 Pulse Strength Normal (2+) 07/09/25 10:00 Respiratory Rate 18 07/09/25 10:40 Respiratory Effort Normal, Non-Labored 07/09/25 13:59 Respiratory Depth Normal 07/09/25 13:59 Respiratory Pattern Normal 07/09/25 13:59 Blood Pressure 136/78 H 07/09/25 10:40 Blood Pressure Mean 97 07/09/25 10:40 Blood Pressure Source Monitor 07/09/25 04:41 Blood Pressure Position Semi-Fowlers 07/09/25 04:41 Blood Pressure Location Left Arm 07/09/25 04:41 Pulse Ox 97 07/09/25 10:40 Oxygen Delivery Method Nasal Cannula 07/09/25 13:59 Oxygen Flow Rate (L/min) 2 07/09/25 13:59 I&O: I&O Last 24 Hours 3 07/08/25 07/09/25 07/09/25 23:59 11:59 23:59 Intake Total 480 / 480 480 / 480 Output Total 300 / 1400 600 / 600 Balance 180 / -920 -600 / -120 480 / -120 I&O: Total Stay 3 07/06/25 15:27 thru 07/09/25 12:00 Intake Total 2160 Output Total 3600 Balance -1440 Current Meds Ordered / Administered: Current meds ordered / Administered 3 Generic Name Dose Route Start Last Admin Trade Name Freq PRN Reason Stop Dose Admin Acetaminophen 650 mg 07/06/25 20:22 07/09/25 09:54 Acetaminophen 325 Mg Tablet PO 650 mg Q6H PRN PRN Administration Pain 1-10 Or Fever>100.7 Hydrocodone Bitart/Acetaminophen 1 tablet 07/07/25 11:35 07/08/25 11:06 Hydrocodone Bitartrate/Apap 5/325 Tablet PO 1 tablet Q4H PRN PRN Administration Pain Score 1-10 Allopurinol 300 mg 07/07/25 10:00 07/09/25 09:25 Allopurinol 300 Mg Tablet PO 300 mg DAILY AYLIN Administration Apixaban 2.5 mg 07/06/25 22:00 07/09/25 09:26 Apixaban 2.5 Mg Tablet ([facility]) PO 2.5 mg BID AYLIN Administration Aspirin 81 mg 07/07/25 08:00 07/08/25 22:51 Aspirin E.C. 81 Mg Tablet PO 81 mg BREAKFAST AYLIN Administration Calcitriol 0.5 mcg 07/08/25 10:00 07/08/25 11:09 Calcitriol 0.25 Mcg Capsule PO 0.5 mcg MOWEFR AYLIN Administration Cholecalciferol 25 mcg 07/07/25 10:00 07/09/25 09:25 Cholecalciferol (Vit D3) 25 Mcg Tablet (1,000 Units) PO 25 mcg DAILY AYLIN Administration Famotidine 20 mg 07/07/25 10:00 07/09/25 09:25 Famotidine 20 Mg Tablet PO 20 mg DAILY AYLIN Administration Furosemide 40 mg 07/08/25 18:00 07/09/25 09:40 Furosemide 40 Mg/4 Ml Vial IV 40 mg BIDLX AYLIN Administration Glucagon 1 mg 07/06/25 20:22 Glucagon 1 Mg/Ml Syringe IM X1 PRN HYPOGLYCEMIA Protocol Dextrose 250 mls @ 0 mls/hr 07/06/25 20:22 Dextrose 10%-Water IV .Q0M PRN HYPOGLYCEMIA Protocol As Directed Sodium Chloride 250 mls @ 15 mls/hr 07/06/25 20:41 IV .[id number] PRN Saline Flush Sodium Chloride 250 mls @ 15 mls/hr 07/06/25 20:41 IV .[id number] PRN Additional IVPB Infusion Insulin Glargine 10 unit 07/06/25 22:00 07/09/25 09:39 Insulin Glargine-Yfgn 100 Unit/Ml Pen SC 10 unit BID AYLIN Administration Protocol Insulin Human Lispro 0 unit 07/06/25 22:00 07/09/25 12:52 Insulin Lispro 100 Unit/Ml Insuln.Pen SC Not Given ACHS [facility] Protocol Isosorbide Mononitrate 60 mg 07/07/25 10:00 07/09/25 09:25 Isosorbide Mononitrate 60 Mg Tablet PO 60 mg DAILY AYLIN Administration Protocol Levetiracetam 500 mg 07/06/25 22:00 07/09/25 09:25 Levetiracetam 500 Mg Tablet PO 500 mg BID AYLIN Administration Metoprolol Tartrate 12.5 mg 07/07/25 22:00 07/09/25 09:24 Metoprolol Tartrate 25 Mg Tablet PO 12.5 mg BID AYLIN Administration Protocol Multivitamins 1 tablet 07/07/25 08:00 07/09/25 09:40 Multivitamins,Therapeutic Tablet PO 1 tablet DAILYCM AYLIN Administration Nitroglycerin 0.4 mg 07/06/25 20:41 Nitroglycerin (Inpatient Use) 0.4 Mg Tab.Subl SL Q5M PRN CARDIAC/CHEST PAIN Nystatin 1 applic 07/06/25 22:00 07/09/25 09:26 Nystatin Powder 15gm Bottle TOPICAL 1 applic BID AYLIN Administration Protocol Olanzapine 2.5 mg 07/06/25 22:00 07/08/25 22:56 Olanzapine 2.5 Mg Tablet PO 2.5 mg QHS AYLIN Administration Protocol Sertraline HCl 25 mg 07/07/25 10:00 07/09/25 09:26 Sertraline 50 Mg Tablet PO 25 mg DAILY AYLIN Administration Sodium Chloride 10 - 40 ml 07/06/25 20:41 07/06/25 21:22 0.9% Saline Lock 10 Ml Syringe IV 10 ml UD PRN Administration SALINE FLUSH Lab / Micro Data 07/09/25 05:35 07/09/25 05:35 Labs: Laboratory Results - last 24 hr 07/08/25 16:51: POC Glucose 92 07/08/25 22:46: POC Glucose 59 L 07/09/25 00:17: POC Glucose 108 H 07/09/25 05:35: WBC 7.9, RBC 3.10 L, Hgb 10.0 L, Hct 30.5 L, MCV 98.4 H, MCH 32.3 H, MCHC 32.8, RDW Std Deviation 56.8 H, RDW Coeff of Yeny 16.8 H, Plt Count 115 L, MPV 11.5, Immature Gran % (Auto) 0.500, Neut % (Auto) 70.5 H, Lymph % (Auto) 17.7 L, [place] % (Auto) 7.5, Eos % (Auto) 3.3, Baso % (Auto) 0.5, Absolute Neuts (auto) 5.6, Absolute Lymphs (auto) 1.40, Nucleated RBC % 0.8, Sodium 139, Potassium 4.4, Chloride 109 H, Carbon Dioxide 14.4 L, Anion Gap 15, BUN 88 H, C reatinine 2.92 H, Estim Creat Clear Calc 21.79 L, Est GFR (MDRD) Non-Af 21 L, B UN/Creatinine Ratio 30.2 H, Glucose 80, Calcium 9.2 07/09/25 06:02: POC Glucose 107 H 07/09/25 12:51: POC Glucose 91 Assessment and Plan . Assessment and plan: Acute Exacerbation of Combined CHF Chronic Hypoxemic Respiratory Failure Likely Sleep Disordered Breathing CKD Pulmonary HTN (secondary) Volume Overload Mr. Cardenas has a constellation of issues that likely have no real definitive solution. Suspect his RV dysfunction noted on echo is related to chronically elevated LVEDP with some component of mitral stenosis (noted on prior echo) along with intermittent hypoxemic vasoconstriction. Optimizing his volume status has proved to be difficult. Given these issues, his age, and other co- morbidities the limits of care in place seem appropriate. If he finds that nebulized bronchodilators provide some symptomatic relief then these can be rx'd at discharge, but I don't have a sound physiologic basis to think that they would help. I would definitely avoid inhaled steroids in this pt. Ultimately he appears to be in the final phase of his life. If available establishing care with a organizational development specialist would seem appropriate. Short of this a hospice referral could be considered. The entirety of this encounter was done via Telemedicine
[2025-07-09 16:40] VITALS: BP 111/56; PULSE 62; RESP 17; TEMP 36.1; O2SAT 95
[2025-07-09] MEDS: 0.9% Saline Lock 10 ML Syringe IV (17:31)
[2025-07-09 19:00] VITALS: PULSE 49
[2025-07-09 22:00] VITALS: BP 110/61; PULSE 50; RESP 16; TEMP 36.6; O2SAT 100
[2025-07-09] MEDS: HYDROcodone Bitartrate/Apap 5/325 Tablet PO (22:30)
[2025-07-10] VITALS (7 sets, daily range): BP systolic 102–112; BP diastolic 44–64; PULSE 49–66; RESP 17–18; TEMP 36.3–37.1; O2SAT 94–100; BMI 40.6
[2025-07-10 05:44] LABS: Hematocrit 30.1 % (40-54); Hemoglobin 9.7 g/dL (13.0-16.5); Immature Granulocytes Count 0.050 X10^3/uL (0.0-0.0); Mean Corp Hgb Conc 32.2 g/dL (32-36); Mean Corpuscular Volume 101.0 fL (80-94); Mean Platelet Vol. 11.3 fl (6.2-12.0); NRBC Flagged by Analyzer 0.5 % (0-5); Platelet Count 113 K/mm3 (150-450); RBC Distribution Width CV 16.8 % (11.6-14.6); RBC Distribution Width SD 59.3 fl (35.1-43.9); Red Blood Count 2.98 M/mm3 (4.6-6.2); White Blood Count 7.7 K/mm3 (4.4-11.0)
[2025-07-10 06:23] LABS: Anion Gap 16 (5-15); BUN 98 mg/dL (4-19); BUN/Creat Ratio 31.6 RATIO (10-20); Calcium,Total 8.9 mg/dL (7.6-11.0); Carbon Dioxide 14.5 mmol/L (21.0-32.0); Chloride 108 mmol/L (98-108); Estimated Creatinine Clearance 21.12 ml/min (50-250); Glucose 87 mg/dL (70-99); Potassium 4.4 mmol/L (3.3-5.1)
[2025-07-10] MEDS: APIXABAN 2.5 MG TABLET (WCH) PO (08:33)
[2025-07-10] MEDS: Cholecalciferol (VIT D3) 25 MCG TABLET (1,000 UNITS) PO (08:35)
[2025-07-10] MEDS: Insulin Glargine-YFGN 100 UNIT/ML Pen 10 UNIT SC (08:36)
[2025-07-10] MEDS: Aspirin E.C. 81 MG Tablet PO (08:36)
--- NOTE | 2025-07-10 10:37 | PCM.TXEXTCAR ---
Diet Diet Order/Speech Therapy: INPATIENT Hospital Diet / Speech Therapy Order(s) 07/06/25 20:23 Diet: Cardiac: Calorie-Controlled Food consistency:: Easy to Chew Liquid Consistency:: Regular/Thin Fluid restriction:: 1500 mL How many daily calories?: 2000 calorie Routine Orders/Code Status Routine Lab Work: CBC and BMP Code Status: DNRCC-A DC O2, CPAP, BIPAP needs Home O2 Discharge instructions: No Wound(s) intergluteal cleft: Wound Type: fissure right cifuentes: Wound Type: blister left lower leg: Wound Type: blisters left groin: Wound Type: excoriation right heel: Wound Type: blister Therapies Physical Therapy: Eval and Treat Occupational Therapy: Eval and Treat Problem/Diagnosis (1) Acute exacerbation of CHF (congestive heart failure): Status: Chronic Code(s): I50.9 - Heart failure, unspecified Plan 1. Acute on chronic systolic CHF exacerbation in the setting of chronic hypoxic respiratory failure/essential HTN/HLD/paroxysmal A-fib ? He is on his baseline oxygen of 2-1/2 L at rest ? Continue with Lasix 40 mg IV twice daily ? His lower extremities are wrapped, will continue ? Continue his home blood pressure medications ? Continue with Eliquis ?Continue with his home blood pressure medications, will monitor make adjustments as necessary ? Echo from 07/08/2025 with a PASP of 70 mmHg and D-shaped septum in systole and diastole, EF was lower range normal ? Will consult pulmonology while inpatient for possible medication adjustments, renal function prevents aggressive diuresis 2. DM2 with CKD 4 ? Continue with insulin ? Accu-Cheks ACHS ? Will monitor make adjustments as necessary ? Renal function is near baseline, will monitor ? She did have an episode of hyperkalemia on admission we will hold his potassium 3. Seizure disorder ? Stable ? Continue with Keppra 4. Depression/anxiety ? Stable ? Continue with his home medications 5. Gout ? Stable ? Continue with allopurinol DVT: Eliquis Allergies/Procedures Done in Hospital Allergies Penicillins (PCN) Allergy (Verified 07/06/25 15:29) Swelling Procedures: 2-D Echocardiogram Type of Care/Length of Stay Estimated LOS: Convalescent Care Less Than 30 days Type of Care Needed: Skilled Rehab Potential: Fair Prognosis: Fair Additional Orders/Day of Discharge Day of Discharge: 07/10/25 Dietary and Speech Recommendations Dietitian Recommendations/Changes: Continue cardiac; 2000 calorie controlled/consistent carbohydrate diet with 1500ml fluid restriction. Will discontinue glucerna shakes with meals,due to BMI being over 40kg/m2. Will reassess need for ONS at time of follow-up. Discharge Plan Admission Admit Date/Time: 07/06/25 19:03 Attending Provider: Eladio Lucas Primary Care Provider: Rios Downey Consulting Providers: Mikey Macias; Woody Brunson; Romaine Xiao; Calvin Starr; Yaakov Love; Josh Cline; James Morales; Duong Pabon; Karri Valentin; Radha Cowan; Casey Salmeron; Kevin Sepulveda; Gustavo Goodman; Kiana James; Michelle Peters; Tatum Hollins; Nnamdi Tracey; Wan Acevedo; Esvin Sevilla; Rj Johnson; Anne Harden; Margie Flowers; Nhan Encarnacion; Cristian Berger; Juan José Carrera Discharge Orders/Prescriptions Prescriptions: New metoprolol tartrate 25 mg Tablet 12.5 mg PO BID Qty: 0 0RF Continued famotidine 20 mg tablet 20 mg PO DAILY olanzapine 2.5 mg tablet 2.5 mg PO QHS Eliquis 2.5 mg tablet 2.5 mg PO BID nitroglycerin [Nitrostat] 0.4 mg tablet, sublingual 0.4 mg sublingual Q5-15M PRN (Reason: chest pain) Qty: 25 3RF Rx Instructions: do not exceed 3 doses per episode aspirin 81 MG tablet,delayed release (DR/EC) 81 mg PO DAILY Patient Comments: multivitamin 1 EACH tablet 1 ea PO DAILY insulin regular human 100 UNIT/ML solution 10 unit SC BID Patient Comments: afternoon and night cholecalciferol (vitamin D3) 1,000 UNIT tablet 25 mcg PO DAILY sertraline 25 MG tablet 25 mg PO DAILY allopurinol 300 mg tablet 300 mg PO DAILY menthol-zinc oxide [Calmoseptine] 0.44-20.6 % ointment 1 applic topical BID nystatin [Nystop] 100,000 unit/gram powder 1 applic topical BID calcitriol 0.5 mcg capsule 0.5 mcg PO MOWEFR isosorbide mononitrate 60 mg tablet extended release 24 hr 60 mg PO DAILY levetiracetam 500 mg tablet 500 mg PO BID insulin NPH isoph U-100 human 100 unit/mL suspension 10 unit SC BID amlodipine 2.5 mg tablet 2.5 mg PO DAILY Qty: 90 3RF Held furosemide 40 mg tablet 40 mg PO QDAY Qty: 90 3RF Hold Instructions: Resume on 07/12/25. Discontinued potassium chloride 20 mEq tablet,ER particles/crystals 20 meq PO DAILY Referrals / Follow Up: Rios Downey DO [Primary Care Provider] - Disposition Disposition (needs filled in before D/C Order can be placed): Detention Facility (1) Acute exacerbation of CHF (congestive heart failure) Qualifiers: Heart failure type: combined systolic and diastolic Qualified Code(s): I50.43 - Acute on chronic combined systolic (congestive) and diastolic (congestive) heart failure
[2025-07-10] MEDS: HYDROcodone Bitartrate/Apap 5/325 Tablet PO (11:04)
--- NOTE | 2025-07-10 11:08 | PHA.DC.MR.R ---
Pharmacy [facility] Reconciliation Pharmacy Service has performed discharge medication reconciliation for this patient. The patient's discharge medication list was reviewed for discrepancies and discrepancies were resolved. Medications at Discharge Home Medications aspirin 81 mg tablet,delayed release 81 mg PO DAILY HEART HEALTH 07/11/16 multivitamin 1 ea PO DAILY HEALTH MAINTENANCE 07/11/16 insulin regular human 100 unit/mL injection solution 10 unit subcut BID DIABETES 07/24/16 cholecalciferol (vitamin D3) 25 mcg (1,000 unit) tablet 25 mcg PO DAILY SUPPLEMENT 10/26/16 sertraline 25 mg tablet 25 mg PO DAILY DEPRESSION 01/10/18 famotidine 20 mg tablet 20 mg PO DAILY GERD 11/13/19 olanzapine 2.5 mg tablet 2.5 mg PO QHS DEPRESSION 11/13/19 allopurinol 300 mg tablet 300 mg PO DAILY GOUT 12/07/21 apixaban 2.5 mg tablet (Eliquis) 2.5 mg PO BID BLOOD THINNER 10/07/22 menthol 0.44 %-zinc oxide 20.6 % topical ointment (Calmoseptine) 1 applic topical BID 08/18/23 nystatin 100,000 unit/gram topical powder (Nystop) 1 applic topical BID 08/18/23 nitroglycerin 0.4 mg sublingual tablet (Nitrostat) 0.4 mg sublingual Q5-15M PRN chest pain #25 tabs 03/23/24 amlodipine 2.5 mg tablet 2.5 mg PO DAILY #90 tabs 01/25/25 furosemide 40 mg tablet 40 mg PO QDAY #90 tabs 01/25/25 Held on 07/10/25. Instructions: Resume on 07/12/25. insulin NPH isoph U-100 human 100 unit/mL subcutaneous suspension 10 unit subcut BID DIABETES 05/31/25 levetiracetam 500 mg tablet 500 mg PO BID 05/31/25 calcitriol 0.5 mcg capsule 0.5 mcg PO MOWEFR 07/06/25 isosorbide mononitrate 60 mg tablet,extended release 24 hr 60 mg PO DAILY 07/06/25 metoprolol tartrate 25 mg tablet 12.5 mg (1/2 x 25 mg) PO BID #0 tabs 07/10/25
--- NOTE | 2025-07-10 11:43 | CASEMGMT ---
Patient has order to discharge to [facility] today under skilled LOC. 7000 completed. Discharge blacksmith assistant to finish discharge.
--- NOTE | 2025-07-10 13:48 | DS.PCM_ITS ---
Providers Date of Admission: 07/06/25 Primary Care Physician: Dr. Rios Downey, DO Consultations 07/07/25 00:57 Consult: Onc/Wound/life insurance sales agent Routine Comment: 07/09/25 08:45 Consult: Forging Machine Operator / Pulmonary Medicine Routine Consulting Provider: Intensivists/Pulmonary Med Reason for Consult: Severe pulm htn EMERGENT Consult: No MD Notified: Yes Date Notified: 07/09/25 Time Notified: 09:05 Method of Notification: Text Reason For Visit: CHF EXACERBATION Diagnosis Discharge Diagnosis (1) Acute exacerbation of CHF (congestive heart failure): Status: Chronic Code(s): I50.9 - Heart failure, unspecified Qualifiers: Heart failure type: combined systolic and diastolic Qualified Code(s): I50.43 - Acute on chronic combined systolic (congestive) and diastolic (congestive) heart failure Medications at Discharge Home Medications aspirin 81 mg tablet,delayed release 81 mg PO DAILY HEART HEALTH 07/11/16 multivitamin 1 ea PO DAILY HEALTH MAINTENANCE 07/11/16 insulin regular human 100 unit/mL injection solution 10 unit subcut BID DIABETES 07/24/16 cholecalciferol (vitamin D3) 25 mcg (1,000 unit) tablet 25 mcg PO DAILY SUPPLEMENT 10/26/16 sertraline 25 mg tablet 25 mg PO DAILY DEPRESSION 01/10/18 famotidine 20 mg tablet 20 mg PO DAILY GERD 11/13/19 olanzapine 2.5 mg tablet 2.5 mg PO QHS DEPRESSION 11/13/19 allopurinol 300 mg tablet 300 mg PO DAILY GOUT 12/07/21 apixaban 2.5 mg tablet (Eliquis) 2.5 mg PO BID BLOOD THINNER 10/07/22 menthol 0.44 %-zinc oxide 20.6 % topical ointment (Calmoseptine) 1 applic topical BID 08/18/23 nystatin 100,000 unit/gram topical powder (Nystop) 1 applic topical BID 08/18/23 nitroglycerin 0.4 mg sublingual tablet (Nitrostat) 0.4 mg sublingual Q5-15M PRN chest pain #25 tabs 03/23/24 amlodipine 2.5 mg tablet 2.5 mg PO DAILY #90 tabs 01/25/25 furosemide 40 mg tablet 40 mg PO QDAY #90 tabs 01/25/25 Held on 07/10/25. Instructions: Resume on 07/12/25. insulin NPH isoph U-100 human 100 unit/mL subcutaneous suspension 10 unit subcut BID DIABETES 05/31/25 levetiracetam 500 mg tablet 500 mg PO BID 05/31/25 calcitriol 0.5 mcg capsule 0.5 mcg PO MOWEFR 07/06/25 isosorbide mononitrate 60 mg tablet,extended release 24 hr 60 mg PO DAILY 07/06/25 metoprolol tartrate 25 mg tablet 12.5 mg (1/2 x 25 mg) PO BID #0 tabs 07/10/25 Hospital Course Operations None Procedures 2-D Echocardiogram Summary of Care Provided Minutes Spent on Discharge: 31 Hospital Course: Per HPI: JODIE SILVERIO, is a 85 M who presents with increased shortness of breath with exertion and increased lower extremity edema. This is an 85-year-old male with a history of HFrEF presents with the above symptoms. Legs are very swollen and tight. Does not check his weight daily so unclear he had put on any weight. About presented to the emergency room where he had an elevated BNP of 12,661, troponin of 104 chest x-ray was unremarkable but was also noted that his potassium was elevated at 6.3. He had received dextrose and insulin, calcium gluconate as well as Tylenol and furosemide. It was later determined that the potassium collected was actually hemolyzed. A repeat potassium has been ordered and is currently pending. Hospital Course: 1. Acute on chronic systolic CHF exacerbation in the setting of chronic hypoxic respiratory failure with severe pulmonary hypertension/essential HTN/HLD/paroxysmal A-fib?85-year-old male presents to the hospital with increasing lower extremity edema and shortness of breath on exertion. He is not using more than his baseline oxygen at 2-1/2 L at rest and 5 L with ambulation however he feels short of breath. He was placed on IV diuresis however his renal function became challenging and they tried to advance him to 3 times daily dosing of his Lasix however he could not tolerate that with his kidney function and blood pressure she was back down to twice a day dosing. Pulmonology was consulted however they did not have any recommendations to help with his severe pulmonary hypertension as they felt that his disease was so far advanced and that he had such little physiologic reserve that they had recommended hospice conversations. I did have a 20-minute conversation with both the patient and his daughter about advance care planning in terms of palliative care versus hospice care. They would prefer to go to the detention and follow-up with their industrial technology teacher and see if there is any intervention or testing that could be done first. Kidney function is close to baseline, on the day of discharge is 3.1 with a baseline of 2.5. I did elect to hold his oral Lasix for a day or 2 on discharge to allow for some recovery. I would continue to wrap his lower extremities. I discussed with him the plan for discharge to SNF today and they expressed understanding of the risks and benefits of going to the detention and would like to go today. He did have an echo on 07/08/2025 with a PASP of 70 mmHg and D-shaped septum in systole and diastole, the EF was on the lower range of normal. 2. Type 2 diabetes, CKD 4, seizure disorder, depression, anxiety, gout are all chronic medical conditions which complicate his care. His home medications were continued where appropriate Physical Exam Narrative General: Alert, Oriented x3, Cooperative, No apparent distress HEENT: Atraumatic, PERRLA, EOMI, Normocephalic Oral: Moist Mucosa Neck: Supple, No JVD Lungs: Diminished, Normal air movement, No rhonchi, No wheeze, No rales Cardiovascular: Regular rate, Regular Rhythm, Normal S1, Normal S2, No murmurs Abdomen: Soft, Non Tender, Non-Distended, No Hepato-splenomegaly Extremities: Edema, Capillary Refill Less than 3 Seconds Skin: No rashes, No breakdown, lower extremities wrapped Musculoskeletal: No Tenderness to Palpation of Joints or Extremities Neurological: No focal neurological deficits, moves all extremities Psych/Mental Status: Flat Weight / BMI Weight Weight: 252 lb 13.923 oz Body Mass Index (BMI) 40.6 ABG / Lab / Microbiology Data 07/10/25 05:20 07/10/25 05:20 Laboratory: Laboratory Results - last 24 hr 07/09/25 12:51: POC Glucose 91 07/09/25 17:24: POC Glucose 97 07/09/25 22:17: POC Glucose 108 H 07/10/25 05:20: WBC 7.7, RBC 2.98 L, Hgb 9.7 L, Hct 30.1 L, MCV 101.0 H, MCH 32.6 H, MCHC 32.2, RDW Std Deviation 59.3 H, RDW Coeff of Yeny 16.8 H, Plt Count 113 L, MPV 11.3, Immature Gran % (Auto) 0.700, Neut % (Auto) 63.8, Lymph % (Auto) 21.9, [place] % (Auto) 8.9, Eos % (Auto) 4.2, Baso % (Auto) 0.5, Absolute Neuts (auto) 4.9, Absolute Lymphs (auto) 1.68, Nucleated RBC % 0.5, Sodium 139, Potassium 4.4, Chloride 108, Carbon Dioxide 14.5 L, Anion Gap 16 H, BUN 98 H, C reatinine 3.10 H, Estim Creat Clear Calc 21.12 L, Est GFR (MDRD) Non-Af 19 L, B UN/Creatinine Ratio 31.6 H, Glucose 87, Calcium 8.9 07/10/25 06:26: POC Glucose 83 07/10/25 11:03: POC Glucose 98 Microbiology: Microbiology 07/06/25 16:45 Mucosa - Nose SARS-CoV-2, Influenza & RSV (PCR) - Final D/C Instructions DC O2, CPAP, BIPAP Needs Home O2 Discharge instructions: No Meaningful Use Info Meaningful Use Meaningful Use Diagnoses (Choose all that apply): None applicable Discharge Plan Admission Admit Date/Time: 07/06/25 19:03 Attending Provider: Eladio Lucas Primary Care Provider: Rios Downey Consulting Providers: Mikey Macias; Woody Brunson; Romaine Xiao; Calvin Starr; Yaakov Love; Josh Cline; James Morales; Duong Pabon; Karri Valentin; Radha Cowan; Casey Salmeron; Kevin Sepulveda; Gustavo Goodman; Kiana James; Michelle Peters; Gunjan,Tatum; Alexy,Nnamdi; Wan Acevedo; Di,Esvin; Rj Johnson; Anne Harden; Margie Flowers; Nhan Encarnacion; Cristian Berger; Juan José Carrera Discharge Orders/Prescriptions Prescriptions: New metoprolol tartrate 25 mg Tablet 12.5 mg PO BID Qty: 0 0RF Continued famotidine 20 mg tablet 20 mg PO DAILY olanzapine 2.5 mg tablet 2.5 mg PO QHS Eliquis 2.5 mg tablet 2.5 mg PO BID nitroglycerin [Nitrostat] 0.4 mg tablet, sublingual 0.4 mg sublingual Q5-15M PRN (Reason: chest pain) Qty: 25 3RF Rx Instructions: do not exceed 3 doses per episode aspirin 81 MG tablet,delayed release (DR/EC) 81 mg PO DAILY Patient Comments: multivitamin 1 EACH tablet 1 ea PO DAILY insulin regular human 100 UNIT/ML solution 10 unit SC BID Patient Comments: afternoon and night cholecalciferol (vitamin D3) 1,000 UNIT tablet 25 mcg PO DAILY sertraline 25 MG tablet 25 mg PO DAILY allopurinol 300 mg tablet 300 mg PO DAILY menthol-zinc oxide [Calmoseptine] 0.44-20.6 % ointment 1 applic topical BID nystatin [Nystop] 100,000 unit/gram powder 1 applic topical BID calcitriol 0.5 mcg capsule 0.5 mcg PO MOWEFR isosorbide mononitrate 60 mg tablet extended release 24 hr 60 mg PO DAILY levetiracetam 500 mg tablet 500 mg PO BID insulin NPH isoph U-100 human 100 unit/mL suspension 10 unit SC BID amlodipine 2.5 mg tablet 2.5 mg PO DAILY Qty: 90 3RF Held furosemide 40 mg tablet 40 mg PO QDAY Qty: 90 3RF Hold Instructions: Resume on 07/12/25. Discontinued potassium chloride 20 mEq tablet,ER particles/crystals 20 meq PO DAILY Referrals / Follow Up: Rios Downey DO [Primary Care Provider] - Disposition Disposition (needs filled in before D/C Order can be placed): [facility] Facility Charges/Coding Multi Select Codes Visit Charges Visit Charges: 40356 Disch Hosp Hospitalists' Procedures Procedures: 98346 Advncd Care Plan 30 Min
--- NOTE | 2025-07-10 13:51 | CASEMGMT ---
Discharge Planning Discharge orders, signed med list, and transport time sent to [facility]. Physicians will transport pt by cot at 2:30. Nursing, SW, pt, and his granddaughter (Maria Luisa) updated. Adrianne Valenzuela DC Planning Asst.
== END 2025-07-10 15:43 | disposition skilled nursing facility (03) | DRG 291 ==
LOC: ED 19:14 → PCU 19:34
PROVIDERS: Internal Medicine; Emergency Provider Student in an Organized Health Care Education/Training Program; Visit Provider Family Medicine
DX: I13.0 Hypertensive heart and chronic kidney disease with heart failure and stage 1 through stage 4 chronic kidney disease, or unspecified chronic kidney disease (principal); I50.43 Acute on chronic combined systolic (congestive) and diastolic (congestive) heart failure; I24.89 Other forms of acute ischemic heart disease; J96.11 Chronic respiratory failure with hypoxia; N18.4 Chronic kidney disease, stage 4 (severe); Z68.41 Body mass index [BMI] 40.0-44.9, adult; Z66 Do not resuscitate; I27.29 Other secondary pulmonary hypertension; G40.909 Epilepsy, unspecified, not intractable, without status epilepticus; E11.22 Type 2 diabetes mellitus with diabetic chronic kidney disease; I48.0 Paroxysmal atrial fibrillation; J44.9 Chronic obstructive pulmonary disease, unspecified; F32.A Depression, unspecified; I05.0 Rheumatic mitral stenosis; E87.5 Hyperkalemia; Z79.4 Long term (current) use of insulin; E78.5 Hyperlipidemia, unspecified; I25.10 Atherosclerotic heart disease of native coronary artery without angina pectoris; M10.9 Gout, unspecified; F41.9 Anxiety disorder, unspecified; G47.33 Obstructive sleep apnea (adult) (pediatric); E66.813 Obesity, class 3; Z82.49 Family history of ischemic heart disease and other diseases of the circulatory system; Z87.891 Personal history of nicotine dependence; Z79.01 Long term (current) use of anticoagulants; Z79.82 Long term (current) use of aspirin; R53.81 Other malaise; G47.8 Other sleep disorders; Z95.1 Presence of aortocoronary bypass graft; Z95.2 Presence of prosthetic heart valve; Z90.49 Acquired absence of other specified parts of digestive tract; Z86.73 Personal history of transient ischemic attack (TIA), and cerebral infarction without residual deficits; R29.6 Repeated falls
CPT/HCPCS: 36415; 71046; 80048; 82962; 83036; 83880; 84132; 84443; 84484; 85025; 87631; 92610; 93005; 93306; 97162; 97165; 97530; 97535; 99284; A4216; J0612; J1938

== ENCOUNTER 2025-07-13 16:29 | Emergency (ER) | payer MEDICARE, OTHER, SELFPAY ==
[2025-07-13] VITALS (10 sets, daily range): BP systolic 148–160; BP diastolic 70–80; PULSE 49–67; RESP 15–20; TEMP 36.4–37.1; O2SAT 96–100; BMI 44.1
--- NOTE | 2025-07-13 16:45 | EX.ED.DYSGE1 ---
HPI History of Present Illness Chief Complaint: Shortness of Breath Narrative Narrative: Patient is a 85-year-old male with past medical history of paroxysmal atrial fibrillation Eliquis, chronic respiratory failure with hypoxia on 2 L nasal cannula while sitting up up to 5 L, hypertension, CHF, COPD, TIA, type 2 diabetes, AUTUMN, hyperlipidemia who presented to the emergency department the chief complaint of shortness of breath. Per EMS they were called out for shortness of breath and when they arrived they were told that he was having some difficulty breathing therefore they placed him on CPAP and they noted that the CPAP was not hooked up to oxygen. They state that they took him off the machine and put him on baseline oxygen and his shortness of breath acutely improved. [facility] Medical History PAF (paroxysmal atrial fibrillation) AUTUMN treated with BiPAP Former smoker Chronic respiratory failure with hypoxia Atherosclerosis of coronary artery of [place] heart without angina pectoris Essential (primary) hypertension Chronic combined systolic and diastolic CHF (congestive heart failure) Lymphedema COPD (chronic obstructive pulmonary disease) Ocular migraine TIA (transient ischemic attack) Anemia Type 2 diabetes mellitus without complications Obstructive sleep apnea Atherosclerosis of coronary artery bypass graft without angina pectoris Non-rheumatic aortic stenosis Left bundle branch block Morbid obesity with BMI of 45.0-49.9, adult Chronic renal failure, stage 3 (moderate) Hyperlipemia Venous insufficiency of both lower extremities Home Medications ?Medication ?Instructions ?Recorded ?Last Taken ?Type aspirin 81 mg tablet,delayed 81 mg PO DAILY HEART HEALTH 07/11/16 07/03/23 History release multivitamin 1 ea PO DAILY HEALTH MAINTENANCE 07/11/16 08/18/23 History insulin regular human 100 unit/mL 10 unit subcut BID DIABETES 07/24/16 07/02/23 History injection solution cholecalciferol (vitamin D3) 25 25 mcg PO DAILY SUPPLEMENT 10/26/16 08/18/23 History mcg (1,000 unit) tablet sertraline 25 mg tablet 25 mg PO DAILY DEPRESSION 01/10/18 08/18/23 History famotidine 20 mg tablet 20 mg PO DAILY GERD 11/13/19 08/18/23 History olanzapine 2.5 mg tablet 2.5 mg PO QHS DEPRESSION 11/13/19 08/17/23 History allopurinol 300 mg tablet 300 mg PO DAILY GOUT 12/07/21 08/18/23 History apixaban 2.5 mg tablet (Eliquis) 2.5 mg PO BID BLOOD THINNER 10/07/22 07/03/23 History menthol 0.44 %-zinc oxide 20.6 % 1 applic topical BID 08/18/23 08/18/23 History topical ointment (Calmoseptine) nystatin 100,000 unit/gram topical 1 applic topical BID 08/18/23 08/18/23 History powder (Nystop) nitroglycerin 0.4 mg sublingual 0.4 mg sublingual Q5-15M PRN chest 03/23/24 Unknown Rx tablet (Nitrostat) pain #25 tabs amlodipine 2.5 mg tablet 2.5 mg PO DAILY #90 tabs 01/25/25 Unknown Rx furosemide 40 mg tablet 40 mg PO QDAY #90 tabs 01/25/25 Unknown Rx Held on 07/10/25. Instructions: Resume on 07/12/25. insulin NPH isoph U-100 human 100 10 unit subcut BID DIABETES 05/31/25 Unknown History unit/mL subcutaneous suspension levetiracetam 500 mg tablet 500 mg PO BID 05/31/25 Unknown History calcitriol 0.5 mcg capsule 0.5 mcg PO MOWEFR 07/06/25 Unknown History isosorbide mononitrate 60 mg 60 mg PO DAILY 07/06/25 Unknown History tablet,extended release 24 hr metoprolol tartrate 25 mg tablet 12.5 mg (1/2 x 25 mg) PO BID #0 07/10/25 Unknown Rx tabs potassium chloride 20 mEq 20 meq PO DAILY 07/13/25 Unknown History tablet,extended release(part/cryst) Allergy/AdvReac Type Severity Reaction Status Date / Time Penicillins (PCN) Allergy Swelling Verified 07/13/25 16:33 Family History Father Myocardial infarction Mother CVA (cerebral vascular accident) Brother CAD (coronary artery disease) Diabetes Surgical History Hx of cholecystectomy (01/13/17) H/O aortic valve replacement (02/24/16) H/O coronary artery bypass surgery (02/24/16) Social History household members: family and other details: Granddaughter. 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 Smoking Status: Former smoker how long ago did patient quit smokin + years alcohol intake: never substance use type: does not use caffeine: Yes Type: carbonated beverages and tea ROS ROS ED ROS Narrative Constitutional: Denies any fevers or chills Cardiovascular: Denies chest pain Respiratory: Complains of shortness of breath as noted above Abdomen: Denies abdominal pain nausea vomit diarrhea : Denies urinary symptoms Neurological: Denies any new numbness or tingling Musculoskeletal: Denies back pain Skin: States that he has scattered bruises throughout his body EXAM Physical Exam Narrative Exam Narrative: General: Patient was lying in bed rest comfortably did not appear to be in acute distress Head: Atraumatic, normocephalic Eyes: PERRL bilaterally, EOMI bilaterally, no conjunctival injection noted Neck: Soft, supple, trachea midline Cardiovascular: Patient bradycardic with a regular rhythm no murmurs gallops rubs noted Respiratory: Patient has minimal end expiratory wheezing noted bilaterally Abdomen: No tenderness to palpation Extremities: Radial pulses +2/4 in the bilateral extremities Neurological: Patient following commands knew that he was at the hospital did appear to be mildly confused on the date. Daughter states that he gets confused when he is tired and this is not out of the ordinary for him Skin: Patient has a scattered ecchymosis throughout his body Const Vital Signs: 07/13/25 16:30 07/13/25 16:33 07/13/25 16:33 Temperature 97.8 F 97.9 F Temperature Source Oral Oral Pulse Rate 51 L 52 L Respiratory Rate 15 18 Respiratory Effort Normal Non-Labored Blood Pressure 151/76 H 151/76 H Blood Pressure Mean 101 101 Pulse Ox 100 100 Oxygen Delivery Method Nasal Cannula Nasal Cannula Oxygen Flow Rate (L/min) 4 3 07/13/25 17:16 07/13/25 17:18 07/13/25 17:33 Temperature 98.7 F Temperature Source Oral Pulse Rate 55 L 49 L Respiratory Rate 16 18 Respiratory Effort Blood Pressure 148/70 H Blood Pressure Mean 96 Pulse Ox 98 96 Oxygen Delivery Method Nasal Cannula Nasal Cannula Oxygen Flow Rate (L/min) 2 2 07/13/25 18:00 07/13/25 19:00 07/13/25 20:00 Temperature 98.6 F 98.6 F 98.3 F Temperature Source Oral Oral Oral Pulse Rate 51 L 49 L 62 Respiratory Rate 19 H 19 H 18 Respiratory Effort Blood Pressure 150/80 H 160/70 H 150/80 H Blood Pressure Mean 103 100 103 Pulse Ox 96 96 96 Oxygen Delivery Method Nasal Cannula Nasal Cannula Oxygen Flow Rate (L/min) 2 2 MDM MDM MDM Narrative Medical decision making narrative: Patient is a 85-year-old male who presented to the emergency department with a chief complaint of shortness of breath. On the differential diagnosis includes but not limited to shortness of breath secondary to not being on his chronic oxygen requirements, COPD exacerbation, pneumonia, pneumothorax, hypercapnic respiratory failure. Once workup is obtained reviewed he will be reevaluated. Patient's echocardiogram from July 06, 2025 was reviewed which showed exam was limited secondary to pulmonary pressures. As noted left ventricular systolic function is lower limits of normal. Mild global right ventricular systolic dysfunction noted. He has moderate 2+ tricuspid valve insufficiency with a pulmonary arterial pressure of 70 mmHg indicating severe pulmonary hypertension. Moderate focal aortic valve calcifications. Patient's CBC was reviewed showed a white count of 12,000 likely reactive, hemoglobin is 10, plate count was noted be 113 has a history of thrombocytopenia, venous blood gas showed a pH of 7.37 with a pCO2 of 34.1. Patient sodium was 142, potassium normal 4.8, creatinine was 3.28 which is around his baseline BUN elevated 101 however this is also around his baseline with the most recent 1 being 98. Patient's anion gap was noted to be 17 this is chronically elevated as well as carbon dioxide level low at 17.5 this is also chronic issue. Patient's AST and ALT were 35 and [address] head brain without contrast showed no acute abnormality. Patient chest x-ray reviewed by myself and by radiology showed prominent cardiomegaly with aortic valve prosthesis and evidence of CABG. No appreciable air consolidation or pleural effusion. Patient's EKG was reviewed showed sinus rhythm with a rate of 51 bpm This was compared to EKG from 07/06/2025 which is largely unchanged. Discussed results with the daughter at bedside and he will be sent back to the facility. They are advised to return with worsening symptoms or concerns. His episode today was likely secondary to his CPAP machine not being hooked up to oxygen. All question concerns answered he was discharged home in stable condition. Lab Data Labs: Laboratory Results - last 24 hr 07/13/25 16:41 WBC 12.2 H RBC 3.03 L Hgb 10.0 L Hct 30.2 L MCV 99.7 H MCH 33.0 H MCHC 33.1 RDW Std Deviation 59.9 H RDW Coeff of Yeny 17.8 H Plt Count 113 L MPV 12.1 H Immature Gran % (Auto) 0.500 Neut % (Auto) 84.8 H Lymph % (Auto) 7.0 L [place] % (Auto) 7.0 Eos % (Auto) 0.5 Baso % (Auto) 0.2 Absolute Neuts (auto) 10.4 H Absolute Lymphs (auto) 0.85 Nucleated RBC % 0.2 Sodium 142 Potassium 4.8 Chloride 107 Carbon Dioxide 17.5 L Anion Gap 17 H BUN 101 H* Creatinine 3.28 H Estim Creat Clear Calc 20.84 L Est GFR (MDRD) Non-Af 18 L BUN/Creatinine Ratio 30.8 H Glucose 154 H Calcium 9.2 Total Bilirubin 1.25 AST 35 ALT 18 Alkaline Phosphatase 235 H Total Protein 7.3 Albumin 3.7 Globulin 3.6 Albumin/Globulin Ratio 1.0 ABG Data ABG results: ABG 07/13/25 16:52 Specimen Type AYE Sample Site Not entered VBG pH 7.37 VBG pO2 49 H VBG HCO3 20 L VBG Total CO2 21 L VBG O2 Sat (Calc) 83 H VBG Base Excess -6 L POC Mix VBG pCO2 Pt Tmp 34.1 L O2 Delivery Device Not entered Radiography Diagnostic Testing: Clinical Impression(s) from Imaging Studies Chest X-Ray 07/13/25 17:43 IMPRESSION: Prominent cardiomegaly with aortic valve prosthesis and evidence of CABG. No appreciable airspace consolidation or pleural effusion. Reading Location: [facility] Brain CT 07/13/25 19:50 IMPRESSION: No acute abnormality Reading [facility] Discharge Plan Triage Chief Complaint: Shortness of Breath ED Provider: Delonte Palma Dx/Rx/DC Orders Clinical Impression: Shortness of breath, Chronic renal failure, stage 3 (moderate), Obstructive sleep apnea, Chronic combined systolic and diastolic CHF (congestive heart failure), Chronic hypoxemic respiratory failure Prescriptions: No Action famotidine 20 mg tablet 20 mg PO DAILY olanzapine 2.5 mg tablet 2.5 mg PO QHS Eliquis 2.5 mg tablet 2.5 mg PO BID nitroglycerin [Nitrostat] 0.4 mg tablet, sublingual 0.4 mg sublingual Q5-15M PRN (Reason: chest pain) Qty: 25 3RF Rx Instructions: do not exceed 3 doses per episode aspirin 81 MG tablet,delayed release (DR/EC) 81 mg PO DAILY Patient Comments: multivitamin 1 EACH tablet 1 ea PO DAILY insulin regular human 100 UNIT/ML solution 10 unit SC BID Patient Comments: afternoon and night cholecalciferol (vitamin D3) 1,000 UNIT tablet 25 mcg PO DAILY sertraline 25 MG tablet 25 mg PO DAILY allopurinol 300 mg tablet 300 mg PO DAILY menthol-zinc oxide [Calmoseptine] 0.44-20.6 % ointment 1 applic topical BID nystatin [Nystop] 100,000 unit/gram powder 1 applic topical BID calcitriol 0.5 mcg capsule 0.5 mcg PO MOWEFR isosorbide mononitrate 60 mg tablet extended release 24 hr 60 mg PO DAILY metoprolol tartrate 25 mg Tablet 12.5 mg PO BID Qty: 0 0RF potassium chloride 20 mEq tablet,ER particles/crystals 20 meq PO DAILY levetiracetam 500 mg tablet 500 mg PO BID insulin NPH isoph U-100 human 100 unit/mL suspension 10 unit SC BID amlodipine 2.5 mg tablet 2.5 mg PO DAILY Qty: 90 3RF furosemide 40 mg tablet 40 mg PO QDAY Qty: 90 3RF Primary Care Provider: Rios Downey Referrals: Rios Downey DO [Primary Care Provider] - Activity Restrictions/Additional Instructions: Your blood work today did not show any acute findings his head CT did not show any acute findings either.. Return with worsening symptoms or any concerns Print Language: [place] Disposition Disposition: Home, Self Care
[2025-07-13 16:53] LABS: Hematocrit 30.2 % (40-54); Hemoglobin 10.0 g/dL (13.0-16.5); Immature Granulocytes Count 0.060 X10^3/uL (0.0-0.0); Mean Corp Hgb Conc 33.1 g/dL (32-36); Mean Corpuscular Volume 99.7 fL (80-94); Mean Platelet Vol. 12.1 fl (6.2-12.0); NRBC Flagged by Analyzer 0.2 % (0-5); Platelet Count 113 K/mm3 (150-450); RBC Distribution Width CV 17.8 % (11.6-14.6); RBC Distribution Width SD 59.9 fl (35.1-43.9); Red Blood Count 3.03 M/mm3 (4.6-6.2); White Blood Count 12.2 K/mm3 (4.4-11.0)
[2025-07-13 16:55] LABS: SITE Not entered; VBG BASE EXCESS -6 mmol/L (-1.0-3.5); VBG PO2 49 mmHg (25-40); VBG SO2 83 % (50-70); VBG TCO2 21 mmol/L (23-33)
--- OUTSIDE RECORDS SUMMARY | 2025-07-13 17:08 | XMS RPT_ITS | CCD ---
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 07-06-2025 SARS-CoV-2 (COVID-19) RNA ELIANE+probe Ql (Unsp spec) [facility] MCV (mean corpuscular volume ) determinationOrdered By: Brittny Modi on 07-06-2025 MCV (RBC) [Entitic vol] 101.3 fL High 80-94 [facility] Mean corpuscular hemoglobin (MCH) determinationOrdered By: Brittny Modi on 07-06-2025 MCH (RBC) [Entitic mass] 32.5 pg High 27.0-32.0 [facility] Monocyte percentageOrdered B y: Brittny Modi on 07-06-2025 Monocytes/100 WBC (Bld) 9.3 % 0-10 [facility] Natriuretic peptide.B prohor gallo N-Terminal [Mass/volume] in Serum or PlasmaOrdered By: Brittny Modi on 07-06-2025 Natriuretic peptide.B prohormone N-Terminal [Mass/Vol] 06410 pg/mL High <1800 [facility] Neutrophil percentageOrdered By: Brittny Modi on 07-06-2025 Neutrophils/100 WBC (Bld) 70.8 % High 47-70 [facility] Platelet countOrdered By: Fer Modi on 07-06-2025 Platelets (Bld) [#/Vol] 117 10*3/uL Low 150-450 [facility] Potassium measurement (mass/ volume)Ordered By: Brittny Modi on 07-06-2025 Potassium (Unsp spec) [Mass/Vol] 5.4 mmol/L High 3.3-5.1 [facility] RBC Auto (Bld) [#/Vol]Ordere d By: Brittny Modi on 07-06-2025 RBC (Bld) [#/Vol] 3.20 10*6/uL Low 4.6-6.2 [facility] Serum creatinine measurement (mass/volume)Ordered By: Brittny Modi on 07-06-2025 Creatinine [Mass/Vol] 3.01 mg/dL High 0.70-1.20 [facility] Serum glucose measurement (m ass/volume)Ordered By: Brittny Modi on 07-06-2025 Glucose [Mass/Vol] 119 mg/dL High 70-99 [facility] Serum or plasma calcium aubree urement (mass/volume)Ordered By: Brittny Modi on 07-06-2025 Calcium [Mass/Vol] 9.4 mg/dL 7.6-11.0 [facility] Serum or plasma urea nitroge n measurement (mass/volume)Ordered By: Brittny Modi on 07-06-2025 Urea nitrogen [Mass/Vol] 76 mg/dL High 4-19 [facility] Sodium levelOrdered By: Mikey Modi on 07-06-2025 Sodium [Moles/Vol] 137 mmol/L 133-145 [facility] Troponin T.cardiac [Mass/vol ume] in Serum or Plasma by High sensitivity methodOrdered By: Brittny Modi on 07-06-2025 Troponin T.cardiac High sensitivity method [Mass/Vol] 103 ng/L High <22 [facility] Troponin T.cardiac High sensitivity method [Mass/Vol] 96 ng/L High <22 [facility] Troponin T.cardiac High sensitivity method [Mass/Vol] 104 ng/L High <22 [facility] White blood cell (WBC) count Ordered By: Brittny Modi on 07-06-2025 WBC (Bld) [#/Vol] 6.7 10*3/uL 4.4-11.0 [facility] Absolute lymphocyte countOrd ered By: Pepe Au on 06-19-2025 Lymphocytes Auto (Unsp spec) [#/Vol] 1.40 10*3/uL 0.83-4.51 [facility] Absolute neutrophil countOrd ered By: Pepe Au on 06-19-2025 Neutrophils (Bld) [#/Vol] 4.6 10*3/uL 2.0-7.7 [facility] Anion gap in Serum or Plasma Ordered By: Pepe Au on 06-19-2025 Anion gap [Moles/Vol] 14 mmol/L 5-15 [facility] Automated lymphocyte count a s percentage of total leukocytesOrdered By: Pepe Au on 06-19-2025 Lymphocytes/100 WBC Auto (Unsp spec) 20.6 % 19-41 [facility] BUN/creatinine ratioOrdered By: Pepe Au on 06-19-2025 Urea nitrogen/Creatinine [Mass ratio] 24.9 mg/mg High 10-20 [facility] Basophil percentageOrdered B y: Pepe Au on 06-19-2025 Basophils/100 WBC (Bld) 0.4 % 0-1 [facility] Carbon dioxide, total [Moles /volume] in Central venous bloodOrdered By: Pepe Au on 06-19-2025 CO2 [Moles/Vol] 19.7 mmol/L Low 21.0-32.0 [facility] Chloride assayOrdered By: Chaim Au on 06-19-2025 Chloride [Moles/Vol] 108 mmol/L 98-108 [facility] Eosinophil percentageOrdered By: Pepe Au on 06-19-2025 Eosinophils/100 WBC (Bld) 1.0 % 0-5 [facility] Erythrocyte distribution wid th ratioOrdered By: Pepe Au on 06-19-2025 Erythrocyte distribution width (RBC) [Ratio] 14.7 % High 11.6-14.6 [facility] Erythrocyte distribution wid th standard deviationOrdered By: Pepe Au on 06-19-2025 Erythrocyte distribution width (RBC) [Ratio] 53.2 fl High 35.1-43.9 [facility] Glomerular filtration rate ( GFR) estimation/1.73 sq m using serum, plasma, or whole bOrdered By: Pepe Au on 06-19-2025 GFR/1.73 sq M.predicted among non-blacks MDRD (S/P/Bld) [Vol rate/Area] 22 mL/min/{1.73_m2} Low >60 [facility] Comment on above: mL/min/1.73m2 CKD-EP I Creatinine Equation (2020) Hematocrit Auto (Bld) [Volum e fraction]Ordered By: Pepe Au on 06-19-2025 Hematocrit (Bld) [Volume fraction] 35.0 % Low 40-54 [facility] Hemoglobin measurementOrdere d By: Pepe Au on 06-19-2025 Hemoglobin (Bld) [Mass/Vol] 11.2 g/dL Low 13.0-16.5 [facility] Immature granulocytes/100 WB C Auto (Bld)Ordered By: Pepe Au on 06-19-2025 Immature granulocytes/100 WBC (Bld) 0.400 % 0.0-0.9 [facility] Comment on above: IG% - Immature Granu locytes (promyelocytes, myelocytes and metamyelocytes) > 1% indicates that a LEFT SHIFT is Present. Iron measurement (mass/mass) Ordered By: Pepe Au on 06-19-2025 Iron (Unsp spec) [Mass/Mass] 59 ug/dL Low 65-175 [facility] MCV (mean corpuscular volume ) determinationOrdered By: Pepe Au on 06-19-2025 MCV (RBC) [Entitic vol] 100.3 fL High 80-94 [facility] Mean corpuscular hemoglobin (MCH) determinationOrdered By: Pepe Au on 06-19-2025 MCH (RBC) [Entitic mass] 32.1 pg High 27.0-32.0 [facility] Mean corpuscular hemoglobin concentration (MCHC) determinationOrdered By: Pepe Au on 06-19-2025 MCHC (RBC) [Mass/Vol] 32.0 g/dL 32-36 [facility] Mean platelet volume determi nationOrdered By: Pepe Au on 06-19-2025 Platelet mean volume (Bld) [Entitic vol] 11.8 fL 6.2-12.0 [facility] Monocyte percentageOrdered B y: Pepe Au on 06-19-2025 Monocytes/100 WBC (Bld) 9.3 % 0-10 [facility] Neutrophil percentageOrdered By: Pepe Au on 06-19-2025 Neutrophils/100 WBC (Bld) 68.3 % 47-70 [facility] No Panel InformationOrdered By: Pepe Au on 06-19-2025 Unsaturated Iron Binding Capacity 189 ug/dL Low 228-428 [facility] 189 ug/dL Low 228-428 [facility] Nucleated red blood cell per centageOrdered By: Pepe Au on 06-19-2025 Nucleated RBC/100 WBC (Bld) [Ratio] 0 % 0-5 [facility] Platelet countOrdered By: Chaim Au on 06-19-2025 Platelets (Bld) [#/Vol] 103 10*3/uL Low 150-450 [facility] Potassium measurement (mass/ volume)Ordered By: Pepe Au on 06-19-2025 Potassium (Unsp spec) [Mass/Vol] 5.1 mmol/L 3.3-5.1 [facility] RBC Auto (Bld) [#/Vol]Ordere d By: Pepe Au on 06-19-2025 RBC (Bld) [#/Vol] 3.49 10*6/uL Low 4.6-6.2 [facility] Serum creatinine measurement (mass/volume)Ordered By: Pepe Au on 06-19-2025 Creatinine [Mass/Vol] 2.72 mg/dL High 0.70-1.20 [facility] Serum glucose measurement (m ass/volume)Ordered By: Pepe Au on 06-19-2025 Glucose [Mass/Vol] 99 mg/dL 70-99 [facility] Serum or plasma albumin aubree urement (mass/volume)Ordered By: Pepe Au on 06-19-2025 Albumin [Mass/Vol] 3.9 g/dL 3.4-4.8 [facility] Serum or plasma calcium aubree urement (mass/volume)Ordered By: Pepe Au on 06-19-2025 Calcium [Mass/Vol] 9.9 mg/dL 7.6-11.0 [facility] Serum or plasma ferritin laurie surement (mass/volume)Ordered By: Pepe Au on 06-19-2025 Ferritin [Mass/Vol] 168 ng/mL 37-417 [facility] Serum or plasma iron saturat ion measurement (mass fraction)Ordered By: Pepe Au on 06-19-2025 Iron saturation [Mass fraction] 24.0 % 9-55 [facility] Serum or plasma urea nitroge n measurement (mass/volume)Ordered By: Pepe Au on 06-19-2025 Urea nitrogen [Mass/Vol] 68 mg/dL High 4-19 [facility] Sodium levelOrdered By: Lety Au on 06-19-2025 Sodium [Moles/Vol] 141 mmol/L 133-145 [facility] White blood cell (WBC) count Ordered By: Pepe Au on 06-19-2025 WBC (Bld) [#/Vol] 6.8 10*3/uL 4.4-11.0 [facility] Absolute lymphocyte countOrd ered By: Duc Vicente on 05-31-2025 Lymphocytes Auto (Unsp spec) [#/Vol] 1.81 10*3/uL 0.83-4.51 [facility] Absolute neutrophil countOrd ered By: Duc Vicente on 05-31-2025 Neutrophils (Bld) [#/Vol] 3.5 10*3/uL 2.0-7.7 [facility] Anion gap in Serum or Plasma Ordered By: Duc Vicente on 05-31-2025 Anion gap [Moles/Vol] 12 mmol/L 5-15 [facility] Assessment of wrist artery p atency prior to arterial punctureOrdered By: Duc Vicente on 05-31-2025 Arterial patency Wrist artery --pre arterial puncture Positive [facility] Automated lymphocyte count a s percentage of total leukocytesOrdered By: Duc Vicente on 05-31-2025 Lymphocytes/100 WBC Auto (Unsp spec) 30.0 % 19-41 [facility] BUN/creatinine ratioOrdered By: Duc Vicente on 05-31-2025 Urea nitrogen/Creatinine [Mass ratio] 21.1 mg/mg High 10-20 [facility] Basophil percentageOrdered B y: Duc Vicente on 05-31-2025 Basophils/100 WBC (Bld) 0.5 % 0-1 [facility] Bilirubin Test strip Ql (U)O rdered By: Duc Vicente on 05-31-2025 Bilirubin Ql (U) Negative Negative [facility] Bilirubin, totalOrdered By: Duc Vicente on 05-31-2025 Bilirubin [Mass/Vol] 0.76 mg/dL 0.00-1.30 [facility] Blood base excess determinat ionOrdered By: Duc Vicente on 05-31-2025 Base excess Calc (BldV) [Moles/Vol] -1 mmol/L -2-2 [facility] Blood bicarbonate measuremen tOrdered By: Duc Vicente on 05-31-2025 HCO3 (Bld) [Moles/Vol] 24.0 mmol/L 22-26 [facility] Carbon dioxide, total [Moles /volume] in Central venous bloodOrdered By: Duc Vicente on 05-31-2025 CO2 [Moles/Vol] 21.8 mmol/L 21.0-32.0 [facility] Chloride assayOrdered By: Cherie Vicente on 05-31-2025 Chloride [Moles/Vol] 108 mmol/L 98-108 [facility] Eosinophil percentageOrdered By: Duccarlee Vicente on 05-31-2025 Eosinophils/100 WBC (Bld) 2.2 % 0-5 [facility] Erythrocyte distribution wid th ratioOrdered By: Duccarlee Vicente on 05-31-2025 Erythrocyte distribution width (RBC) [Ratio] 15.0 % High 11.6-14.6 [facility] Erythrocyte distribution wid th standard deviationOrdered By: Duccarlee Vicente on 05-31-2025 Erythrocyte distribution width (RBC) [Ratio] 55.1 fl High 35.1-43.9 [facility] Glomerular filtration rate ( GFR) estimation/1.73 sq m using serum, plasma, or whole bOrdered By: Duccarlee Vicente on 05-31-2025 GFR/1.73 sq M.predicted among non-blacks MDRD (S/P/Bld) [Vol rate/Area] 24 mL/min/{1.73_m2} Low >60 [facility] Comment on above: mL/min/1.73m2 CKD-EP I Creatinine Equation (2020) Hematocrit Auto (Bld) [Volum e fraction]Ordered By: Duc Vicente on 05-31-2025 Hematocrit (Bld) [Volume fraction] 37.3 % Low 40-54 [facility] Hemoglobin measurementOrdere d By: Duccarlee Vicente on 05-31-2025 Hemoglobin (Bld) [Mass/Vol] 11.9 g/dL Low 13.0-16.5 [facility] Hyaline casts LM.LPF (Urine sed) [#/Area]Ordered By: Duc Vicente on 05-31-2025 Hyaline casts (Urine sed) [#/Area] 0 /[LPF] 0-5 [facility] Immature granulocytes/100 WB C Auto (Bld)Ordered By: Duccarlee Vicente on 05-31-2025 Immature granulocytes/100 WBC (Bld) 0.500 % 0.0-0.9 [facility] Comment on above: IG% - Immature Granu locytes (promyelocytes, myelocytes and metamyelocytes) > 1% indicates that a LEFT SHIFT is Present. Ketones Test strip Ql (U)Ord ered By: Duc Vicente on 05-31-2025 Ketones Ql (U) Negative Negative [facility] Laboratory - Chemistry and C hemistry - challengeOrdered By: Duc Vicente on 05-31-2025 AST [Catalytic activity/Vol] 27 U/L <38 [facility] Lactic acid measurementOrder ed By: Duc Vicente on 05-31-2025 Lactate [Moles/Vol] 1.7 mmol/L 0.0-2.0 [facility] MCV (mean corpuscular volume ) determinationOrdered By: Duc Vicente on 05-31-2025 MCV (RBC) [Entitic vol] 101.6 fL High 80-94 [facility] Mean corpuscular hemoglobin (MCH) determinationOrdered By: Duc Vicente on 05-31-2025 MCH (RBC) [Entitic mass] 32.4 pg High 27.0-32.0 [facility] Mean corpuscular hemoglobin concentration (MCHC) determinationOrdered By: Duc Vicente on 05-31-2025 MCHC (RBC) [Mass/Vol] 31.9 g/dL Low 32-36 [facility] Mean platelet volume determi nationOrdered By: Duc Vicente on 05-31-2025 Platelet mean volume (Bld) [Entitic vol] 11.9 fL 6.2-12.0 [facility] Measurement, pHOrdered By: Joe Vicente on 05-31-2025 pH (Unsp spec) 7.41 [pH] 7.35-7.45 [facility] Microscopic analysis of urin e for red blood cells (RBC)Ordered By: Duc Vicente on 05-31-2025 Microscopic analysis of urine for red blood cells (RBC) 0-5 SEEN /hpf 0-5 [facility] Monocyte percentageOrdered B y: Duc Vicente on 05-31-2025 Monocytes/100 WBC (Bld) 8.5 % 0-10 [facility] Mucus LM Ql (Urine sed)Order ed By: Duc Vicente on 05-31-2025 Mucus Ql (Urine sed) RARE /hpf [facility] Neutrophil percentageOrdered By: Duc Vicente on 05-31-2025 Neutrophils/100 WBC (Bld) 58.3 % 47-70 [facility] Nitrite Test strip Ql (U)Ord ered By: Duc Vicente on 05-31-2025 Nitrite Ql (U) Negative Negative [facility] No Panel InformationOrdered By: Duc Vicente on 05-31-2025 Blood Gas Sample Site R [facility] Blood Gas Specimen Type ART [facility] Blood Gas Vent Mode Not entered [facility] Oxygen Delivery Device Cannula [facility] ART [facility] R [facility] Not entered [facility] Cannula [facility] 27 U/L <38 [facility] Nucleated red blood cell per centageOrdered By: Duc Vicente on 05-31-2025 Nucleated RBC/100 WBC (Bld) [Ratio] 0 % 0-5 [facility] Platelet countOrdered By: Cherie Vicente on 05-31-2025 Platelets (Bld) [#/Vol] 110 10*3/uL Low 150-450 [facility] Potassium measurement (mass/ volume)Ordered By: Duc Vicente on 05-31-2025 Potassium (Unsp spec) [Mass/Vol] 4.9 mmol/L 3.3-5.1 [facility] Protein Test strip Ql (U)Ord ered By: Duc Vicente on 05-31-2025 Protein Ql (U) 100 mg/dl High Negative [facility] RBC Auto (Bld) [#/Vol]Ordere d By: Duc Vicente on 05-31-2025 RBC (Bld) [#/Vol] 3.67 10*6/uL Low 4.6-6.2 [facility] Serum creatinine measurement (mass/volume)Ordered By: Duc Vicente on 05-31-2025 Creatinine [Mass/Vol] 2.54 mg/dL High 0.70-1.20 [facility] Serum globulin measurementOr dered By: Duc Vicente on 05-31-2025 Globulin (S) [Mass/Vol] 3.6 g/dL 2.2-4.2 [facility] Serum glucose measurement (m ass/volume)Ordered By: Duc Vicente on 05-31-2025 Glucose [Mass/Vol] 116 mg/dL High 70-99 [facility] Serum or plasma alanine irving otransferase (ALT) measurementOrdered By: Duc Vicente on 05-31-2025 ALT [Catalytic activity/Vol] 12 U/L <47 [facility] Serum or plasma albumin aubree urement (mass/volume)Ordered By: Duc Vicente on 05-31-2025 Albumin [Mass/Vol] 4.0 g/dL 3.4-4.8 [facility] Serum or plasma albumin/glob ulin mass ratioOrdered By: Duc Vicente on 05-31-2025 Albumin/Globulin [Mass ratio] 1.1 {ratio} 0.9-2.4 [facility] Serum or plasma alkaline tamiko sphatase measurementOrdered By: Duc Vicente on 05-31-2025 ALP [Catalytic activity/Vol] 208 U/L High 40-129 [facility] Serum or plasma calcium aubree urement (mass/volume)Ordered By: Duc Vicente on 05-31-2025 Calcium [Mass/Vol] 9.6 mg/dL 7.6-11.0 [facility] Serum or plasma urea nitroge n measurement (mass/volume)Ordered By: Duc Vicente on 05-31-2025 Urea nitrogen [Mass/Vol] 54 mg/dL High 4-19 [facility] Sodium levelOrdered By: Duc Vicente on 05-31-2025 Sodium [Moles/Vol] 142 mmol/L 133-145 [facility] Squamous epithelial cells de tection in urine sediment by light microscopyOrdered By: Duc Vicente 05-31-2025 Epithelial cells.squamous LM Ql (Urine sed) 0 SEEN /hpf 0-5 [facility] Total carbon dioxide measure mentOrdered By: Duc Vicente on 05-31-2025 CO2 [Moles/Vol] 25 mmol/L [facility] Total proteinOrdered By: Duc Vicente 05-31-2025 Protein [Mass/Vol] 7.6 g/dL 5.9-8.4 [facility] Urine clarityOrdered By: Duc Vicente on 05-31-2025 Clarity (U) Clear Clear [facility] Urine color determinationOrd ered By: Duc Vicente on 05-31-2025 Color (U) Yellow Yellow [facility] Urine glucose detectionOrder ed By: Duc Vicente on 05-31-2025 Glucose Ql (U) Normal mg/dl Normal [facility] Urine leukocyte esterase det ection by dipstickOrdered By: Duc Vicente on 05-31-2025 Leukocyte esterase Test strip Ql (U) Negative Negative [facility] Urine pHOrdered By: Duc encinas on 05-31-2025 pH (U) 5.0 [pH] 5.0 - 8.0 [facility] Urine sediment bacteria coun t by microscopy (number/high power field)Ordered By: Duc Vicente on 05-31-2025 Bacteria LM.HPF (Urine sed) [#/Area] RARE /hpf None Seen [facility] Urine specific gravity measu rementOrdered By: Duc Vicente on 05-31-2025 Specific gravity (U) [Rel density] 1.015 1.002-1.030 [facility] Urine urobilinogen measureme ntOrdered By: Duc Vicente on 05-31-2025 Urobilinogen Ql (U) Normal mg/dl Normal [facility] White blood cell (WBC) count Ordered By: Duc Vicente on 05-31-2025 WBC (Bld) [#/Vol] 6.0 10*3/uL 4.4-11.0 [facility] White blood cell countOrdere d By: Dcu Vicente on 05-31-2025 White blood cell count 0-5 SEEN /hpf 0-5 [facility] Absolute lymphocyte countOrd ered By: Pepe Au on 05-22-2025 Lymphocytes Auto (Unsp spec) [#/Vol] 1.86 10*3/uL 0.83-4.51 [facility] Absolute neutrophil countOrd ered By: Pepe Au on 05-22-2025 Neutrophils (Bld) [#/Vol] 4.3 10*3/uL 2.0-7.7 [facility] Anion gap in Serum or Plasma Ordered By: Toñito Espino on 05-22-2025 Anion gap [Moles/Vol] 15 mmol/L 5-15 [facility] Automated lymphocyte count a s percentage of total leukocytesOrdered By: Pepe Au on 05-22-2025 Lymphocytes/100 WBC Auto (Unsp spec) 27.0 % 19-41 [facility] BUN/creatinine ratioOrdered By: Toñito Espino on 05-22-2025 Urea nitrogen/Creatinine [Mass ratio] 18.4 mg/mg 10-20 [facility] Basophil percentageOrdered B y: Pepe Au on 05-22-2025 Basophils/100 WBC (Bld) 0.4 % 0-1 [facility] Bilirubin, totalOrdered By: Toñito Espino on 05-22-2025 Bilirubin [Mass/Vol] 0.77 mg/dL 0.00-1.30 [facility] Calculated very low density lipoprotein (VLDL) cholesterol measurementOrdered By: Toñito Espino on 05-22-2025 Calculated very low density lipoprotein (VLDL) cholesterol measurement 23 mg/dL 5-40 [facility] Carbon dioxide, total [Moles /volume] in Central venous bloodOrdered By: Toñito Espino on 05-22-2025 CO2 [Moles/Vol] 19.3 mmol/L Low 21.0-32.0 [facility] Chloride assayOrdered By: Vicente Espino on 05-22-2025 Chloride [Moles/Vol] 108 mmol/L 98-108 [facility] Eosinophil percentageOrdered By: Pepe Au on 05-22-2025 Eosinophils/100 WBC (Bld) 1.5 % 0-5 [facility] Erythrocyte distribution wid th ratioOrdered By: Pepe Au on 05-22-2025 Erythrocyte distribution width (RBC) [Ratio] 15.2 % High 11.6-14.6 [facility] Erythrocyte distribution wid th standard deviationOrdered By: Pepe Au on 05-22-2025 Erythrocyte distribution width (RBC) [Ratio] 56.1 fl High 35.1-43.9 [facility] Glomerular filtration rate ( GFR) estimation/1.73 sq m using serum, plasma, or whole bOrdered By: Toñito Espino on 05-22-2025 GFR/1.73 sq M.predicted among non-blacks MDRD (S/P/Bld) [Vol rate/Area] 25 mL/min/{1.73_m2} Low >60 [facility] Comment on above: mL/min/1.73m2 CKD-EP I Creatinine Equation (2020) Hematocrit Auto (Bld) [Volum e fraction]Ordered By: Pepe Au on 05-22-2025 Hematocrit (Bld) [Volume fraction] 38.0 % Low 40-54 [facility] Hemoglobin A1c percentageOrd ered By: Toñito Espino on 05-22-2025 HbA1c (Bld) [Mass fraction] 5.7 % <5.7 [facility] Comment on above: Normal < 5.7 % Predi abetic 5.7 - 6.4 % Diabetic >or= 6.5 % Please note range changes. Hemoglobin measurementOrdere d By: Pepe Au on 05-22-2025 Hemoglobin (Bld) [Mass/Vol] 12.2 g/dL Low 13.0-16.5 [facility] Immature granulocytes/100 WB C Auto (Bld)Ordered By: Pepe Au on 05-22-2025 Immature granulocytes/100 WBC (Bld) 0.400 % 0.0-0.9 [facility] Comment on above: IG% - Immature Granu locytes (promyelocytes, myelocytes and metamyelocytes) > 1% indicates that a LEFT SHIFT is Present. Iron measurement (mass/mass) Ordered By: Pepe Au on 05-22-2025 Iron (Unsp spec) [Mass/Mass] 72 ug/dL 65-175 [facility] LDL calc ser/plasOrdered By: Toñito Espino on 05-22-2025 Cholesterol in LDL [Mass/Vol] 80 mg/dL [facility] Comment on above: Rfduoixqcc=286-800 m g/dL & Higher Wzsr=449 mg/dL or greater Laboratory - Chemistry and C hemistry - challengeOrdered By: Toñito Espino on 05-22-2025 AST [Catalytic activity/Vol] 26 U/L <38 [facility] MCV (mean corpuscular volume ) determinationOrdered By: Pepe Au on 05-22-2025 MCV (RBC) [Entitic vol] 101.3 fL High 80-94 [facility] Mean corpuscular hemoglobin (MCH) determinationOrdered By: Pepe Au on 05-22-2025 MCH (RBC) [Entitic mass] 32.5 pg High 27.0-32.0 [facility] Mean corpuscular hemoglobin concentration (MCHC) determinationOrdered By: Pepe Au on 05-22-2025 MCHC (RBC) [Mass/Vol] 32.1 g/dL 32-36 [facility] Mean platelet volume determi nationOrdered By: Pepe Au on 05-22-2025 Platelet mean volume (Bld) [Entitic vol] 11.0 fL 6.2-12.0 [facility] Monocyte percentageOrdered B y: Pepe Au on 05-22-2025 Monocytes/100 WBC (Bld) 8.0 % 0-10 [facility] Neutrophil percentageOrdered By: Pepe Au on 05-22-2025 Neutrophils/100 WBC (Bld) 62.7 % 47-70 [facility] No Panel InformationOrdered By: Pepe Au on 05-22-2025 Unsaturated Iron Binding Capacity 186 ug/dL Low 228-428 [facility] 186 ug/dL Low 228-428 [facility] No Panel InformationOrdered By: Toñito Espino on 05-22-2025 26 U/L <38 [facility] Nucleated red blood cell per centageOrdered By: Pepe Au on 05-22-2025 Nucleated RBC/100 WBC (Bld) [Ratio] 0 % 0-5 [facility] Platelet countOrdered By: Chaim Au on 05-22-2025 Platelets (Bld) [#/Vol] 101 10*3/uL Low 150-450 [facility] Potassium measurement (mass/ volume)Ordered By: Toñito Espino on 05-22-2025 Potassium (Unsp spec) [Mass/Vol] 5.1 mmol/L 3.3-5.1 [facility] RBC Auto (Bld) [#/Vol]Ordere d By: Pepe Au on 05-22-2025 RBC (Bld) [#/Vol] 3.75 10*6/uL Low 4.6-6.2 [facility] Screening total cholesterol/ high density lipoprotein (HDL) cholesterol ratioOrdered By: Toñito Espino on 05-22-2025 Cholesterol.total/Choles terol in HDL [Mass ratio] 3.65 {ratio} [facility] Serum creatinine measurement (mass/volume)Ordered By: Toñito Espino on 05-22-2025 Creatinine [Mass/Vol] 2.44 mg/dL High 0.70-1.20 [facility] Serum globulin measurementOr dered By: Toñito Espino on 05-22-2025 Globulin (S) [Mass/Vol] 3.6 g/dL 2.2-4.2 [facility] Serum glucose measurement (m ass/volume)Ordered By: Toñito Espino on 05-22-2025 Glucose [Mass/Vol] 104 mg/dL High 70-99 [facility] Serum or plasma alanine irving otransferase (ALT) measurementOrdered By: Toñito Espino on 05-22-2025 ALT [Catalytic activity/Vol] 12 U/L <47 [facility] Serum or plasma albumin aubree urement (mass/volume)Ordered By: Toñito Espino on 05-22-2025 Albumin [Mass/Vol] 4.1 g/dL 3.4-4.8 [facility] Serum or plasma albumin/glob ulin mass ratioOrdered By: Toñito Espino on 05-22-2025 Albumin/Globulin [Mass ratio] 1.2 {ratio} 0.9-2.4 [facility] Serum or plasma alkaline tamiko sphatase measurementOrdered By: Toñito Espino on 05-22-2025 ALP [Catalytic activity/Vol] 192 U/L High 40-129 [facility] Serum or plasma calcium aubree urement (mass/volume)Ordered By: Toñito Espino on 05-22-2025 Calcium [Mass/Vol] 10.1 mg/dL 7.6-11.0 [facility] Serum or plasma cholesterol in HDL measurement (mass/volume)Ordered By: Toñito Espino on 05-22-2025 Cholesterol in HDL [Mass/Vol] 39 mg/dL Low >40 [facility] Comment on above: National Cholesterol Education Program (NCEP) guidelines:<40 mg/dL: Low HDL-cholesterol (major risk factor for CHD)>= 60 mg/dL: High HDL-cholesterol (negative risk factor for CHD)HDL-cholesterol is affected by a number of factors, e.g. smoking, exercise, hormones, sex and age. Serum or plasma cholesterol measurement (mass/volume)Ordered By: Toñito Espino on 05-22-2025 Cholesterol [Mass/Vol] 142 mg/dL <201 [facility] Comment on above: Cholesterol level, D esirable <200 mg/dLBorderline high cholesterol 200-239 mg/dLHigh cholesterol >=240 mg/dLRecommendations of the NCEP Adult Treatment Panel for the following risk-cutoff thresholds for the [place] population. Serum or plasma ferritin laurie surement (mass/volume)Ordered By: Pepe Au on 05-22-2025 Ferritin [Mass/Vol] 184 ng/mL 37-417 [facility] Serum or plasma iron saturat ion measurement (mass fraction)Ordered By: Pepe Au on 05-22-2025 Iron saturation [Mass fraction] 28.0 % 9-55 [facility] Serum or plasma urea nitroge n measurement (mass/volume)Ordered By: Toñito Espino on 05-22-2025 Urea nitrogen [Mass/Vol] 45 mg/dL High 4-19 [facility] Sodium levelOrdered By: Cornelio Espino on 05-22-2025 Sodium [Moles/Vol] 142 mmol/L 133-145 [facility] TSH DL <= 0.005 mIU/L QnOrde red By: Toñito Espino on 05-22-2025 TSH Qn 7.250 uIU/mL High 0.300-4.200 [facility] Total proteinOrdered By: Sujit Espino on 05-22-2025 Protein [Mass/Vol] 7.7 g/dL 5.9-8.4 [facility] Triglycerides measurementOrd ered By: Toñito Espino on 05-22-2025 Triglyceride [Mass/Vol] 115 mg/dL <199 [facility] Comment on above: The drugs N-Acetylcy steine and Metamizole may falsely depress this assay. Normal range: <150 mg/dLBorderline High: 150-199 mg/dLHigh: 200-499 mg/dLVery High: >500 mg/dL White blood cell (WBC) count Ordered By: Pepe Au on 05-22-2025 WBC (Bld) [#/Vol] 6.9 10*3/uL 4.4-11.0 [facility] Absolute lymphocyte countOrd ered By: Pepe Au on 04-25-2025 Lymphocytes Auto (Unsp spec) [#/Vol] 1.73 10*3/uL 0.83-4.51 [facility] Absolute neutrophil countOrd ered By: Pepe Au on 04-25-2025 Neutrophils (Bld) [#/Vol] 5.4 10*3/uL 2.0-7.7 [facility] Anion gap in Serum or Plasma Ordered By: Pepe Au on 04-25-2025 Anion gap [Moles/Vol] 13 mmol/L 5-15 [facility] Automated lymphocyte count a s percentage of total leukocytesOrdered By: Pepe Au on 04-25-2025 Lymphocytes/100 WBC Auto (Unsp spec) 22.3 % 19-41 [facility] BUN/creatinine ratioOrdered By: Pepe Au on 04-25-2025 Urea nitrogen/Creatinine [Mass ratio] 21.2 mg/mg High 10-20 [facility] Basophil percentageOrdered B y: Pepe Au on 04-25-2025 Basophils/100 WBC (Bld) 0.5 % 0-1 [facility] Carbon dioxide, total [Moles /volume] in Central venous bloodOrdered By: Pepe Au on 04-25-2025 CO2 [Moles/Vol] 21.1 mmol/L 21.0-32.0 [facility] Chloride assayOrdered By: Chaim Au on 04-25-2025 Chloride [Moles/Vol] 109 mmol/L High 98-108 [facility] Eosinophil percentageOrdered By: Pepe Au on 04-25-2025 Eosinophils/100 WBC (Bld) 1.3 % 0-5 [facility] Erythrocyte distribution wid th ratioOrdered By: Pepe Au on 04-25-2025 Erythrocyte distribution width (RBC) [Ratio] 15.1 % High 11.6-14.6 [facility] Erythrocyte distribution wid th standard deviationOrdered By: Pepe Au on 04-25-2025 Erythrocyte distribution width (RBC) [Ratio] 56.2 fl High 35.1-43.9 [facility] Glomerular filtration rate ( GFR) estimation/1.73 sq m using serum, plasma, or whole bOrdered By: Pepe Au on 04-25-2025 GFR/1.73 sq M.predicted among non-blacks MDRD (S/P/Bld) [Vol rate/Area] 25 mL/min/{1.73_m2} Low >60 [facility] Comment on above: mL/min/1.73m2 CKD-EP I Creatinine Equation (2020) Hematocrit Auto (Bld) [Volum e fraction]Ordered By: Pepe Au on 04-25-2025 Hematocrit (Bld) [Volume fraction] 34.1 % Low 40-54 [facility] Hemoglobin measurementOrdere d By: Pepe Au on 04-25-2025 Hemoglobin (Bld) [Mass/Vol] 10.9 g/dL Low 13.0-16.5 [facility] Immature granulocytes/100 WB C Auto (Bld)Ordered By: Pepe Au on 04-25-2025 Immature granulocytes/100 WBC (Bld) 0.300 % 0.0-0.9 [facility] Comment on above: IG% - Immature Granu locytes (promyelocytes, myelocytes and metamyelocytes) > 1% indicates that a LEFT SHIFT is Present. Iron measurement (mass/mass) Ordered By: Pepe Au on 04-25-2025 Iron (Unsp spec) [Mass/Mass] 68 ug/dL 65-175 [facility] MCV (mean corpuscular volume ) determinationOrdered By: Pepe Au on 04-25-2025 MCV (RBC) [Entitic vol] 101.2 fL High 80-94 [facility] Mean corpuscular hemoglobin (MCH) determinationOrdered By: Pepe Au on 04-25-2025 MCH (RBC) [Entitic mass] 32.3 pg High 27.0-32.0 [facility] Mean corpuscular hemoglobin concentration (MCHC) determinationOrdered By: Pepe Au on 04-25-2025 MCHC (RBC) [Mass/Vol] 32.0 g/dL 32-36 [facility] Mean platelet volume determi nationOrdered By: Pepe Au on 04-25-2025 Platelet mean volume (Bld) [Entitic vol] 10.6 fL 6.2-12.0 [facility] Monocyte percentageOrdered B y: Pepe Au on 04-25-2025 Monocytes/100 WBC (Bld) 6.2 % 0-10 [facility] Neutrophil percentageOrdered By: Pepe Au on 04-25-2025 Neutrophils/100 WBC (Bld) 69.4 % 47-70 [facility] No Panel InformationOrdered By: Pepe Au on 04-25-2025 Unsaturated Iron Binding Capacity 155 ug/dL Low 228-428 [facility] 155 ug/dL Low 228-428 [facility] Nucleated red blood cell per centageOrdered By: Pepe Au on 04-25-2025 Nucleated RBC/100 WBC (Bld) [Ratio] 0 % 0-5 [facility] Platelet countOrdered By: Chaim Au on 04-25-2025 Platelets (Bld) [#/Vol] 105 10*3/uL Low 150-450 [facility] Potassium measurement (mass/ volume)Ordered By: Pepe Au on 04-25-2025 Potassium (Unsp spec) [Mass/Vol] 5.2 mmol/L High 3.3-5.1 [facility] RBC Auto (Bld) [#/Vol]Ordere d By: Pepe Au on 04-25-2025 RBC (Bld) [#/Vol] 3.37 10*6/uL Low 4.6-6.2 [facility] Serum creatinine measurement (mass/volume)Ordered By: Pepe Au on 04-25-2025 Creatinine [Mass/Vol] 2.50 mg/dL High 0.70-1.20 [facility] Serum glucose measurement (m ass/volume)Ordered By: Pepe Au on 04-25-2025 Glucose [Mass/Vol] 131 mg/dL High 70-99 [facility] Serum or plasma albumin aubree urement (mass/volume)Ordered By: Pepe Au on 04-25-2025 Albumin [Mass/Vol] 3.8 g/dL 3.4-4.8 [facility] Serum or plasma calcium aubree urement (mass/volume)Ordered By: Pepe Au on 04-25-2025 Calcium [Mass/Vol] 9.9 mg/dL 7.6-11.0 [facility] Serum or plasma ferritin laurie surement (mass/volume)Ordered By: Pepe Au on 04-25-2025 Ferritin [Mass/Vol] 216 ng/mL 37-417 [facility] Serum or plasma iron saturat ion measurement (mass fraction)Ordered By: Pepe Au on 04-25-2025 Iron saturation [Mass fraction] 30.0 % 9-55 [facility] Comment on above: Previous reported re sult: 30.0 %Edited by: GWENDOLYN on 04/25/25:1554 Serum or plasma urea nitroge n measurement (mass/volume)Ordered By: Pepe Au on 04-25-2025 Urea nitrogen [Mass/Vol] 53 mg/dL High 4-19 [facility] Sodium levelOrdered By: Lety Au on 04-25-2025 Sodium [Moles/Vol] 143 mmol/L 133-145 [facility] White blood cell (WBC) count Ordered By: Pepe Au on 04-25-2025 WBC (Bld) [#/Vol] 7.8 10*3/uL 4.4-11.0 [facility] Absolute lymphocyte countOrd ered By: Pepe Au on 04-15-2025 Lymphocytes Auto (Unsp spec) [#/Vol] 1.38 10*3/uL 0.83-4.51 [facility] Absolute neutrophil countOrd ered By: Pepe Au on 04-15-2025 Neutrophils (Bld) [#/Vol] 5.0 10*3/uL 2.0-7.7 [facility] Anion gap in Serum or Plasma Ordered By: Pepe Au on 04-15-2025 Anion gap [Moles/Vol] 12 mmol/L 5-15 [facility] Automated lymphocyte count a s percentage of total leukocytesOrdered By: Pepe Au on 04-15-2025 Lymphocytes/100 WBC Auto (Unsp spec) 19.4 % 19-41 [facility] BUN/creatinine ratioOrdered By: Pepe Au on 04-15-2025 Urea nitrogen/Creatinine [Mass ratio] 20.4 mg/mg High 10-20 [facility] Basophil percentageOrdered B y: Pepe Au on 04-15-2025 Basophils/100 WBC (Bld) 0.6 % 0-1 [facility] Carbon dioxide, total [Moles /volume] in Central venous bloodOrdered By: Pepe Au on 04-15-2025 CO2 [Moles/Vol] 21.4 mmol/L 21.0-32.0 [facility] Chloride assayOrdered By: Chaim Au on 04-15-2025 Chloride [Moles/Vol] 108 mmol/L 98-108 [facility] Eosinophil percentageOrdered By: Pepe Au on 04-15-2025 Eosinophils/100 WBC (Bld) 2.7 % 0-5 [facility] Erythrocyte distribution wid th ratioOrdered By: Pepe Au on 04-15-2025 Erythrocyte distribution width (RBC) [Ratio] 15.1 % High 11.6-14.6 [facility] Erythrocyte distribution wid th standard deviationOrdered By: Pepe Au on 04-15-2025 Erythrocyte distribution width (RBC) [Ratio] 56.5 fl High 35.1-43.9 [facility] Glomerular filtration rate ( GFR) estimation/1.73 sq m using serum, plasma, or whole bOrdered By: Pepe Au on 04-15-2025 GFR/1.73 sq M.predicted among non-blacks MDRD (S/P/Bld) [Vol rate/Area] 23 mL/min/{1.73_m2} Low >60 [facility] Comment on above: mL/min/1.73m2 CKD-EP I Creatinine Equation (2020) Hematocrit Auto (Bld) [Volum e fraction]Ordered By: Pepe Au on 04-15-2025 Hematocrit (Bld) [Volume fraction] 34.5 % Low 40-54 [facility] Hemoglobin measurementOrdere d By: Pepe Au on 04-15-2025 Hemoglobin (Bld) [Mass/Vol] 10.9 g/dL Low 13.0-16.5 [facility] Immature granulocytes/100 WB C Auto (Bld)Ordered By: Pepe Au on 04-15-2025 Immature granulocytes/100 WBC (Bld) 0.400 % 0.0-0.9 [facility] Comment on above: IG% - Immature Granu locytes (promyelocytes, myelocytes and metamyelocytes) > 1% indicates that a LEFT SHIFT is Present. Iron measurement (mass/mass) Ordered By: Pepe Au on 04-15-2025 Iron (Unsp spec) [Mass/Mass] 70 ug/dL 65-175 [facility] MCV (mean corpuscular volume ) determinationOrdered By: Pepe Au on 04-15-2025 MCV (RBC) [Entitic vol] 101.2 fL High 80-94 [facility] Mean corpuscular hemoglobin (MCH) determinationOrdered By: Pepe Au on 04-15-2025 MCH (RBC) [Entitic mass] 32.0 pg 27.0-32.0 [facility] Mean corpuscular hemoglobin concentration (MCHC) determinationOrdered By: Pepe Au on 04-15-2025 MCHC (RBC) [Mass/Vol] 31.6 g/dL Low 32-36 [facility] Mean platelet volume determi nationOrdered By: Pepe Au on 04-15-2025 Platelet mean volume (Bld) [Entitic vol] 11.7 fL 6.2-12.0 [facility] Monocyte percentageOrdered B y: Pepe Au on 04-15-2025 Monocytes/100 WBC (Bld) 6.6 % 0-10 [facility] Neutrophil percentageOrdered By: Pepe Au on 04-15-2025 Neutrophils/100 WBC (Bld) 70.3 % High 47-70 [facility] No Panel InformationOrdered By: Pepe Au on 04-15-2025 Unsaturated Iron Binding Capacity 163 ug/dL Low 228-428 [facility] 163 ug/dL Low 228-428 [facility] Nucleated red blood cell per centageOrdered By: Pepe Au on 04-15-2025 Nucleated RBC/100 WBC (Bld) [Ratio] 0 % 0-5 [facility] Platelet countOrdered By: Chaim Au on 04-15-2025 Platelets (Bld) [#/Vol] 112 10*3/uL Low 150-450 [facility] Potassium measurement (mass/ volume)Ordered By: Pepe Au on 04-15-2025 Potassium (Unsp spec) [Mass/Vol] 4.8 mmol/L 3.3-5.1 [facility] RBC Auto (Bld) [#/Vol]Ordere d By: Pepe Au on 04-15-2025 RBC (Bld) [#/Vol] 3.41 10*6/uL Low 4.6-6.2 [facility] Random urine creatinine aubree urement (mass/volume)Ordered By: Pepe Au on 04-15-2025 Creatinine Unsp time (U) [Mass/Vol] 89.70 mg/dL 39.00-259.00 [facility] Serum creatinine measurement (mass/volume)Ordered By: Pepe Au on 04-15-2025 Creatinine [Mass/Vol] 2.63 mg/dL High 0.70-1.20 [facility] Serum glucose measurement (m ass/volume)Ordered By: Pepe Au on 04-15-2025 Glucose [Mass/Vol] 139 mg/dL High 70-99 [facility] Serum or plasma albumin aubree urement (mass/volume)Ordered By: Pepe Au on 04-15-2025 Albumin [Mass/Vol] 3.9 g/dL 3.4-4.8 [facility] Serum or plasma calcium aubree urement (mass/volume)Ordered By: Pepe Au on 04-15-2025 Calcium [Mass/Vol] 9.3 mg/dL 7.6-11.0 [facility] Serum or plasma ferritin laurie surement (mass/volume)Ordered By: Pepe Au on 04-15-2025 Ferritin [Mass/Vol] 186 ng/mL 37-417 [facility] Serum or plasma iron saturat ion measurement (mass fraction)Ordered By: Pepe Au on 04-15-2025 Iron saturation [Mass fraction] 30.0 % 9-55 [facility] Serum or plasma urea nitroge n measurement (mass/volume)Ordered By: Pepe Au on 04-15-2025 Urea nitrogen [Mass/Vol] 54 mg/dL High 4-19 [facility] Serum or plasma uric acid me asurement (mass/volume)Ordered By: Pepe Au on 04-15-2025 Urate [Mass/Vol] 5.6 mg/dL 3.5-7.2 [facility] Comment on above: The drugs N-Acetylcy steine and Metamizole may falsely depress this assay. Sodium levelOrdered By: Lety Au on 04-15-2025 Sodium [Moles/Vol] 141 mmol/L 133-145 [facility] Urine protein measurement (m ass/volume)Ordered By: Pepe Au on 04-15-2025 Protein (U) [Mass/Vol] 63.0 mg/dL High 0.0-12.0 [facility] Urine protein/creatinine mas s ratioOrdered By: Pepe Au on 04-15-2025 Protein/Creatinine (U) [Mass ratio] 702 mg/g CRE High 0-200 [facility] White blood cell (WBC) count Ordered By: Pepe Au on 04-15-2025 WBC (Bld) [#/Vol] 7.1 10*3/uL 4.4-11.0 [facility] Absolute lymphocyte countOrd ered By: Pepe Au on 03-28-2025 Lymphocytes Auto (Unsp spec) [#/Vol] 1.95 10*3/uL 0.83-4.51 [facility] Absolute neutrophil countOrd ered By: Pepe Au on 03-28-2025 Neutrophils (Bld) [#/Vol] 5.5 10*3/uL 2.0-7.7 [facility] Anion gap in Serum or Plasma Ordered By: Pepe Au on 03-28-2025 Anion gap [Moles/Vol] 13 mmol/L 5-15 [facility] Automated lymphocyte count a s percentage of total leukocytesOrdered By: Pepe Au on 03-28-2025 Lymphocytes/100 WBC Auto (Unsp spec) 23.7 % 19-41 [facility] BUN/creatinine ratioOrdered By: Pepe Au on 03-28-2025 Urea nitrogen/Creatinine [Mass ratio] 20.7 mg/mg High 10-20 [facility] Basophil percentageOrdered B y: Pepe Au on 03-28-2025 Basophils/100 WBC (Bld) 0.5 % 0-1 [facility] Carbon dioxide, total [Moles /volume] in Central venous bloodOrdered By: Pepe Au on 03-28-2025 CO2 [Moles/Vol] 21.1 mmol/L 21.0-32.0 [facility] Chloride assayOrdered By: Chaim Au on 03-28-2025 Chloride [Moles/Vol] 108 mmol/L 98-108 [facility] Eosinophil percentageOrdered By: Pepe Au on 03-28-2025 Eosinophils/100 WBC (Bld) 1.9 % 0-5 [facility] Erythrocyte distribution wid th ratioOrdered By: Pepe Au on 03-28-2025 Erythrocyte distribution width (RBC) [Ratio] 14.6 % 11.6-14.6 [facility] Erythrocyte distribution wid th standard deviationOrdered By: Pepe Au on 03-28-2025 Erythrocyte distribution width (RBC) [Ratio] 53.0 fl High 35.1-43.9 [facility] Glomerular filtration rate ( GFR) estimation/1.73 sq m using serum, plasma, or whole bOrdered By: Pepe Au on 03-28-2025 GFR/1.73 sq M.predicted among non-blacks MDRD (S/P/Bld) [Vol rate/Area] 24 mL/min/{1.73_m2} Low >60 [facility] Comment on above: mL/min/1.73m2 CKD-EP I Creatinine Equation (2020) Hematocrit Auto (Bld) [Volum e fraction]Ordered By: Pepe Au on 03-28-2025 Hematocrit (Bld) [Volume fraction] 35.2 % Low 40-54 [facility] Hemoglobin measurementOrdere d By: Pepe Au on 03-28-2025 Hemoglobin (Bld) [Mass/Vol] 11.2 g/dL Low 13.0-16.5 [facility] Immature granulocytes/100 WB C Auto (Bld)Ordered By: Pepe Au on 03-28-2025 Immature granulocytes/100 WBC (Bld) 0.500 % 0.0-0.9 [facility] Comment on above: IG% - Immature Granu locytes (promyelocytes, myelocytes and metamyelocytes) > 1% indicates that a LEFT SHIFT is Present. Iron measurement (mass/mass) Ordered By: Pepe Au on 03-28-2025 Iron (Unsp spec) [Mass/Mass] 93 ug/dL 65-175 [facility] MCV (mean corpuscular volume ) determinationOrdered By: Pepe Au on 03-28-2025 MCV (RBC) [Entitic vol] 100.0 fL High 80-94 [facility] Mean corpuscular hemoglobin (MCH) determinationOrdered By: Pepe Au on 03-28-2025 MCH (RBC) [Entitic mass] 31.8 pg 27.0-32.0 [facility] Mean corpuscular hemoglobin concentration (MCHC) determinationOrdered By: Pepe Au on 03-28-2025 MCHC (RBC) [Mass/Vol] 31.8 g/dL Low 32-36 [facility] Mean platelet volume determi nationOrdered By: Pepe Au on 03-28-2025 Platelet mean volume (Bld) [Entitic vol] 11.5 fL 6.2-12.0 [facility] Monocyte percentageOrdered B y: Pepe Au on 03-28-2025 Monocytes/100 WBC (Bld) 6.6 % 0-10 [facility] Neutrophil percentageOrdered By: Pepe Au on 03-28-2025 Neutrophils/100 WBC (Bld) 66.8 % 47-70 [facility] No Panel InformationOrdered By: Pepe Au on 03-28-2025 Unsaturated Iron Binding Capacity 143 ug/dL Low 228-428 [facility] 143 ug/dL Low 228-428 [facility] Nucleated red blood cell per centageOrdered By: Pepe Au on 03-28-2025 Nucleated RBC/100 WBC (Bld) [Ratio] 0 % 0-5 [facility] Platelet countOrdered By: Chaim Au on 03-28-2025 Platelets (Bld) [#/Vol] 107 10*3/uL Low 150-450 [facility] Potassium measurement (mass/ volume)Ordered By: Pepe Au on 03-28-2025 Potassium (Unsp spec) [Mass/Vol] 5.3 mmol/L High 3.3-5.1 [facility] RBC Auto (Bld) [#/Vol]Ordere d By: Pepe Au on 03-28-2025 RBC (Bld) [#/Vol] 3.52 10*6/uL Low 4.6-6.2 [facility] Serum creatinine measurement (mass/volume)Ordered By: Pepe Au on 03-28-2025 Creatinine [Mass/Vol] 2.56 mg/dL High 0.70-1.20 [facility] Serum glucose measurement (m ass/volume)Ordered By: Pepe Au on 03-28-2025 Glucose [Mass/Vol] 130 mg/dL High 70-99 [facility] Serum or plasma albumin aubree urement (mass/volume)Ordered By: Pepe Au on 03-28-2025 Albumin [Mass/Vol] 4.0 g/dL 3.4-4.8 [facility] Serum or plasma calcium aubree urement (mass/volume)Ordered By: Pepe Au on 03-28-2025 Calcium [Mass/Vol] 10.6 mg/dL 7.6-11.0 [facility] Serum or plasma ferritin laurie surement (mass/volume)Ordered By: Pepe Au on 03-28-2025 Ferritin [Mass/Vol] 191 ng/mL 37-417 [facility] Serum or plasma iron saturat ion measurement (mass fraction)Ordered By: Pepe Au on 03-28-2025 Iron saturation [Mass fraction] 39.0 % 9-55 [facility] Comment on above: Previous reported re sult: 39.0 %Edited by: GWENDOLYN on 03/28/25:1546 Serum or plasma urea nitroge n measurement (mass/volume)Ordered By: Pepe Au on 03-28-2025 Urea nitrogen [Mass/Vol] 53 mg/dL High 4-19 [facility] Sodium levelOrdered By: Lety Au on 03-28-2025 Sodium [Moles/Vol] 142 mmol/L 133-145 [facility] White blood cell (WBC) count Ordered By: Pepe Au on 03-28-2025 WBC (Bld) [#/Vol] 8.2 10*3/uL 4.4-11.0 [facility] Absolute lymphocyte countOrd ered By: Pepe Au on 02-26-2025 Lymphocytes Auto (Unsp spec) [#/Vol] 1.72 10*3/uL 0.83-4.51 [facility] Absolute neutrophil countOrd ered By: Pepe Au on 02-26-2025 Neutrophils (Bld) [#/Vol] 5.7 10*3/uL 2.0-7.7 [facility] Anion gap in Serum or Plasma Ordered By: Pepe Au on 02-26-2025 Anion gap [Moles/Vol] 16 mmol/L High 5-15 [facility] Automated lymphocyte count a s percentage of total leukocytesOrdered By: Pepe Au on 02-26-2025 Lymphocytes/100 WBC Auto (Unsp spec) 21.0 % 19-41 [facility] BUN/creatinine ratioOrdered By: Pepe Au on 02-26-2025 Urea nitrogen/Creatinine [Mass ratio] 18.1 mg/mg 10-20 [facility] Basophil percentageOrdered B y: Pepe Au on 02-26-2025 Basophils/100 WBC (Bld) 0.4 % 0-1 [facility] Calculated total iron bindin g capacityOrdered By: Pepe Au on 02-26-2025 Total Iron Binding Capacity 218 ug/dL Low 250-450 [facility] Carbon dioxide, total [Moles /volume] in Central venous bloodOrdered By: Pepe Au on 02-26-2025 CO2 [Moles/Vol] 19.8 mmol/L Low 21.0-32.0 [facility] Chloride assayOrdered By: Chaim Au on 02-26-2025 Chloride [Moles/Vol] 107 mmol/L 98-108 [facility] Eosinophil percentageOrdered By: Pepe Au on 02-26-2025 Eosinophils/100 WBC (Bld) 2.3 % 0-5 [facility] Erythrocyte distribution wid th (RBC) [Ratio]Ordered By: Pepe Au on 02-26-2025 Erythrocyte distribution width (RBC) [Entitic vol] 49.2 fL High 35.1-43.9 [facility] Erythrocyte distribution wid th ratioOrdered By: Pepe Au on 02-26-2025 Erythrocyte distribution width (RBC) [Ratio] 13.6 % 11.6-14.6 [facility] Erythrocyte distribution wid th standard deviationOrdered By: Pepe Au on 02-26-2025 Erythrocyte distribution width (RBC) [Ratio] 49.2 fl High 35.1-43.9 [facility] GFR/1.73 sq M.predicted henry g non-blacks MDRD (S/P/Bld) [Vol rate/Area]Ordered By: Pepe Au on 02-26-2025 Estimated GFR (MDRD) Non-Af Amer 25 Low >60 [facility] Comment on above: mL/min/1.73m2 CKD-EP I Creatinine Equation (2020) Glomerular filtration rate ( GFR) estimation/1.73 sq m using serum, plasma, or whole bOrdered By: Pepe Au on 02-26-2025 GFR/1.73 sq M.predicted among non-blacks MDRD (S/P/Bld) [Vol rate/Area] 25 mL/min/{1.73_m2} Low >60 [facility] Comment on above: mL/min/1.73m2 CKD-EP I Creatinine Equation (2020) Hematocrit Auto (Bld) [Volum e fraction]Ordered By: Pepe Au on 02-26-2025 Hematocrit (Bld) [Volume fraction] 35.4 % Low 40-54 [facility] Hemoglobin measurementOrdere d By: Pepe Au on 02-26-2025 Hemoglobin (Bld) [Mass/Vol] 11.3 g/dL Low 13.0-16.5 [facility] Immature granulocytes/100 WB C Auto (Bld)Ordered By: Pepe Au on 02-26-2025 Immature granulocytes/100 WBC (Bld) 0.200 % 0.0-0.9 [facility] Comment on above: IG% - Immature Granu locytes (promyelocytes, myelocytes and metamyelocytes) > 1% indicates that a LEFT SHIFT is Present. Iron (Unsp spec) [Mass/Mass] Ordered By: Pepe Au on 02-26-2025 Iron [Mass/Vol] 75 ug/dL 65-175 [facility] Iron measurement (mass/mass) Ordered By: Pepe Au on 02-26-2025 Iron (Unsp spec) [Mass/Mass] 75 ug/dL 65-175 [facility] Iron saturation [Mass fracti on]Ordered By: Pepe Au on 02-26-2025 Iron Saturation 34.4 % 9-55 [facility] Comment on above: Previous reported re sult: 34.0 %Edited by: JUSTIN on 02/26/25:1611 AMENDED REPORT 02/26/25 1611 IRON SATURATION previously reported as: 34.0 % Lymphocytes Auto (Unsp spec) [#/Vol]Ordered By: Pepe Au on 02-26-2025 Lymphocytes (Bld) [#/Vol] 1.72 10*3/uL 0.83-4.51 [facility] Lymphocytes/100 WBC Auto (Un sp spec)Ordered By: Pepe Au on 02-26-2025 Lymphocytes/100 WBC (Bld) 21.0 % 19-41 [facility] MCV (mean corpuscular volume ) determinationOrdered By: Pepe Au on 02-26-2025 MCV (RBC) [Entitic vol] 98.9 fL High 80-94 [facility] Mean corpuscular hemoglobin (MCH) determinationOrdered By: Pepe Au on 02-26-2025 MCH (RBC) [Entitic mass] 31.6 pg 27.0-32.0 [facility] Mean corpuscular hemoglobin concentration (MCHC) determinationOrdered By: Pepe Au on 02-26-2025 MCHC (RBC) [Mass/Vol] 31.9 g/dL Low 32-36 [facility] Mean platelet volume determi nationOrdered By: Pepe Au on 02-26-2025 Platelet mean volume (Bld) [Entitic vol] 10.8 fL 6.2-12.0 [facility] Monocyte percentageOrdered B y: Pepe Au on 02-26-2025 Monocytes/100 WBC (Bld) 7.0 % 0-10 [facility] Neutrophil percentageOrdered By: Pepe Au on 02-26-2025 Neutrophils/100 WBC (Bld) 69.1 % 47-70 [facility] No Panel InformationOrdered By: Pepe Au on 02-26-2025 Unsaturated Iron Binding Capacity 143 ug/dL Low 228-428 [facility] 143 ug/dL Low 228-428 [facility] Nucleated red blood cell per centageOrdered By: Pepe Au on 02-26-2025 Nucleated RBC/100 WBC (Bld) [Ratio] 0 % 0-5 [facility] PTH intactOrdered By: Paula Au on 02-26-2025 Parathyroid Hormone (Intact) 49 pg/mL 11-61 [facility] Platelet countOrdered By: Chaim Au on 02-26-2025 Platelets (Bld) [#/Vol] 114 10*3/uL Low 150-450 [facility] Potassium (Unsp spec) [Mass/ Vol]Ordered By: Pepe Au on 02-26-2025 Potassium [Moles/Vol] 4.8 mmol/L 3.3-5.1 [facility] Potassium measurement (mass/ volume)Ordered By: Pepe Au on 02-26-2025 Potassium (Unsp spec) [Mass/Vol] 4.8 mmol/L 3.3-5.1 [facility] RBC Auto (Bld) [#/Vol]Ordere d By: Pepe Au on 02-26-2025 RBC (Bld) [#/Vol] 3.58 10*6/uL Low 4.6-6.2 [facility] Serum creatinine measurement (mass/volume)Ordered By: Pepe Au on 02-26-2025 Creatinine [Mass/Vol] 2.48 mg/dL High 0.70-1.20 [facility] Serum glucose measurement (m ass/volume)Ordered By: Pepe Au on 02-26-2025 Glucose [Mass/Vol] 136 mg/dL High 70-99 [facility] Serum or plasma albumin aubree urement (mass/volume)Ordered By: Pepe Au on 02-26-2025 Albumin [Mass/Vol] 3.7 g/dL 3.4-4.8 [facility] Serum or plasma calcium aubree urement (mass/volume)Ordered By: Pepe Au on 02-26-2025 Calcium [Mass/Vol] 9.0 mg/dL 7.6-11.0 [facility] Serum or plasma ferritin laurie surement (mass/volume)Ordered By: Pepe Au on 02-26-2025 Ferritin [Mass/Vol] 223 ng/mL 37-417 [facility] Serum or plasma iron saturat ion measurement (mass fraction)Ordered By: Pepe Au on 02-26-2025 Iron saturation [Mass fraction] 34.4 % 9-55 [facility] Comment on above: Previous reported re sult: 34.0 %Edited by: JUSTIN on 02/26/25:1611 AMENDED REPORT 02/26/25 1611 IRON SATURATION previously reported as: 34.0 % Serum or plasma urea nitroge n measurement (mass/volume)Ordered By: Pepe Au on 02-26-2025 Urea nitrogen [Mass/Vol] 45 mg/dL High 4-19 [facility] Serum phosphorus measurement Ordered By: Ppee Au on 02-26-2025 Phosphorus Level 3.2 mg/dL 2.7-4.5 [facility] Sodium levelOrdered By: Lety Au on 02-26-2025 Sodium [Moles/Vol] 143 mmol/L 133-145 [facility] White blood cell (WBC) count Ordered By: Pepe Au on 02-26-2025 WBC (Bld) [#/Vol] 8.2 10*3/uL 4.4-11.0 [facility] Absolute lymphocyte countOrd ered By: Pepe Au on 01-29-2025 Lymphocytes Auto (Unsp spec) [#/Vol] 1.70 10*3/uL 0.83-4.51 [facility] Absolute neutrophil countOrd ered By: Pepe Au on 01-29-2025 Neutrophils (Bld) [#/Vol] 8.4 10*3/uL High 2.0-7.7 [facility] Anion gap in Serum or Plasma Ordered By: Pepe Au on 01-29-2025 Anion gap [Moles/Vol] 14 mmol/L 5-15 [facility] Automated lymphocyte count a s percentage of total leukocytesOrdered By: Pepe Au on 01-29-2025 Lymphocytes/100 WBC Auto (Unsp spec) 15.5 % Low 19-41 [facility] BUN/creatinine ratioOrdered By: Pepe Au on 01-29-2025 Urea nitrogen/Creatinine [Mass ratio] 20.8 mg/mg High 10-20 [facility] Basophil percentageOrdered B y: Pepe Au on 01-29-2025 Basophils/100 WBC (Bld) 0.3 % 0-1 [facility] Calculated total iron bindin g capacityOrdered By: Pepe Au on 01-29-2025 Total Iron Binding Capacity 242 ug/dL Low 250-450 [facility] Carbon dioxide, total [Moles /volume] in Central venous bloodOrdered By: Pepe Au on 01-29-2025 CO2 [Moles/Vol] 21.4 mmol/L 21.0-32.0 [facility] Chloride assayOrdered By: Chaim Au on 01-29-2025 Chloride [Moles/Vol] 106 mmol/L 98-108 [facility] Eosinophil percentageOrdered By: Pepe Au on 01-29-2025 Eosinophils/100 WBC (Bld) 1.0 % 0-5 [facility] Erythrocyte distribution wid th (RBC) [Ratio]Ordered By: Pepe Au on 01-29-2025 Erythrocyte distribution width (RBC) [Entitic vol] 45.9 fL High 35.1-43.9 [facility] Erythrocyte distribution wid th ratioOrdered By: Pepe Au on 01-29-2025 Erythrocyte distribution width (RBC) [Ratio] 12.9 % 11.6-14.6 [facility] Erythrocyte distribution wid th standard deviationOrdered By: Pepe Au on 01-29-2025 Erythrocyte distribution width (RBC) [Ratio] 45.9 fl High 35.1-43.9 [facility] GFR/1.73 sq M.predicted henry g non-blacks MDRD (S/P/Bld) [Vol rate/Area]Ordered By: Pepe Au on 01-29-2025 Estimated GFR (MDRD) Non-Af Amer 24 Low >60 [facility] Comment on above: mL/min/1.73m2 CKD-EP I Creatinine Equation (2020) Glomerular filtration rate ( GFR) estimation/1.73 sq m using serum, plasma, or whole bOrdered By: Pepe Au on 01-29-2025 GFR/1.73 sq M.predicted among non-blacks MDRD (S/P/Bld) [Vol rate/Area] 24 mL/min/{1.73_m2} Low >60 [facility] Comment on above: mL/min/1.73m2 CKD-EP I Creatinine Equation (2020) Hematocrit Auto (Bld) [Volum e fraction]Ordered By: Pepe Au on 01-29-2025 Hematocrit (Bld) [Volume fraction] 37.9 % Low 40-54 [facility] Hemoglobin measurementOrdere d By: Pepe Au on 01-29-2025 Hemoglobin (Bld) [Mass/Vol] 12.3 g/dL Low 13.0-16.5 [facility] Immature granulocytes/100 WB C Auto (Bld)Ordered By: Pepe Au on 01-29-2025 Immature granulocytes/100 WBC (Bld) 0.400 % 0.0-0.9 [facility] Comment on above: IG% - Immature Granu locytes (promyelocytes, myelocytes and metamyelocytes) > 1% indicates that a LEFT SHIFT is Present. Iron (Unsp spec) [Mass/Mass] Ordered By: Pepe Au on 01-29-2025 Iron [Mass/Vol] 84 ug/dL 65-175 [facility] Iron measurement (mass/mass) Ordered By: Pepe Au on 01-29-2025 Iron (Unsp spec) [Mass/Mass] 84 ug/dL 65-175 [facility] Iron saturation [Mass fracti on]Ordered By: Pepe Au on 01-29-2025 Iron Saturation 35.0 % 15.0-55.0 [facility] Lymphocytes Auto (Unsp spec) [#/Vol]Ordered By: Pepe Au on 01-29-2025 Lymphocytes (Bld) [#/Vol] 1.70 10*3/uL 0.83-4.51 [facility] Lymphocytes/100 WBC Auto (Un sp spec)Ordered By: Pepe Au on 01-29-2025 Lymphocytes/100 WBC (Bld) 15.5 % Low 19-41 [facility] MCV (mean corpuscular volume ) determinationOrdered By: Pepe Au on 01-29-2025 MCV (RBC) [Entitic vol] 98.2 fL High 80-94 [facility] Mean corpuscular hemoglobin (MCH) determinationOrdered By: Pepe Au on 01-29-2025 MCH (RBC) [Entitic mass] 31.9 pg 27.0-32.0 [facility] Mean corpuscular hemoglobin concentration (MCHC) determinationOrdered By: Pepe Au on 01-29-2025 MCHC (RBC) [Mass/Vol] 32.5 g/dL 32-36 [facility] Mean platelet volume determi nationOrdered By: Pepe Au on 01-29-2025 Platelet mean volume (Bld) [Entitic vol] 11.5 fL 6.2-12.0 [facility] Monocyte percentageOrdered B y: Pepe Au on 01-29-2025 Monocytes/100 WBC (Bld) 6.5 % 0-10 [facility] Neutrophil percentageOrdered By: Pepe Au on 01-29-2025 Neutrophils/100 WBC (Bld) 76.3 % High 47-70 [facility] No Panel InformationOrdered By: Peep Au on 01-29-2025 Unsaturated Iron Binding Capacity 158 ug/dL Low 228-428 [facility] Nucleated red blood cell per centageOrdered By: Pepe Au on 01-29-2025 Nucleated RBC/100 WBC (Bld) [Ratio] 0 % 0-5 [facility] PTH intactOrdered By: Paula Au on 01-29-2025 Parathyroid Hormone (Intact) 30 pg/mL 11-61 [facility] Platelet countOrdered By: Chaim Au on 01-29-2025 Platelets (Bld) [#/Vol] 115 10*3/uL Low 150-450 [facility] Potassium (Unsp spec) [Mass/ Vol]Ordered By: Pepe Au on 01-29-2025 Potassium [Moles/Vol] 4.4 mmol/L 3.3-5.1 [facility] Potassium measurement (mass/ volume)Ordered By: Pepe Au on 01-29-2025 Potassium (Unsp spec) [Mass/Vol] 4.4 mmol/L 3.3-5.1 [facility] RBC Auto (Bld) [#/Vol]Ordere d By: Pepe Au on 01-29-2025 RBC (Bld) [#/Vol] 3.86 10*6/uL Low 4.6-6.2 [facility] Serum creatinine measurement (mass/volume)Ordered By: Pepe Au on 01-29-2025 Creatinine [Mass/Vol] 2.59 mg/dL High 0.70-1.20 [facility] Serum glucose measurement (m ass/volume)Ordered By: Pepe Au on 01-29-2025 Glucose [Mass/Vol] 110 mg/dL High 70-99 [facility] Serum or plasma albumin aubree urement (mass/volume)Ordered By: Pepe Au on 01-29-2025 Albumin [Mass/Vol] 4.0 g/dL 3.4-4.8 [facility] Serum or plasma calcium aubree urement (mass/volume)Ordered By: Pepe Au on 01-29-2025 Calcium [Mass/Vol] 9.8 mg/dL 7.6-11.0 [facility] Serum or plasma ferritin laurie surement (mass/volume)Ordered By: Pepe Au on 01-29-2025 Ferritin [Mass/Vol] 252 ng/mL 37-417 [facility] Serum or plasma iron saturat ion measurement (mass fraction)Ordered By: Pepe Au on 01-29-2025 Iron saturation [Mass fraction] 35.0 % 15.0-55.0 [facility] Serum or plasma urea nitroge n measurement (mass/volume)Ordered By: Pepe Au on 01-29-2025 Urea nitrogen [Mass/Vol] 54 mg/dL High 4-19 [facility] Serum phosphorus measurement Ordered By: Pepe Au on 01-29-2025 Phosphorus Level 3.1 mg/dL 2.7-4.5 [facility] Sodium levelOrdered By: Lety Au on 01-29-2025 Sodium [Moles/Vol] 141 mmol/L 133-145 [facility] White blood cell (WBC) count Ordered By: Pepe Au on 01-29-2025 WBC (Bld) [#/Vol] 11.0 10*3/uL 4.4-11.0 [facility] Absolute lymphocyte countOrd ered By: Pepe Au on 01-01-2025 Lymphocytes Auto (Unsp spec) [#/Vol] 1.90 10*3/uL 0.83-4.51 [facility] Absolute neutrophil countOrd ered By: Pepe Au on 01-01-2025 Neutrophils (Bld) [#/Vol] 5.0 10*3/uL 2.0-7.7 [facility] Automated lymphocyte count a s percentage of total leukocytesOrdered By: Pepe Au on 01-01-2025 Lymphocytes/100 WBC Auto (Unsp spec) 24.6 % 19-41 [facility] Basophil percentageOrdered B y: Pepe Au on 01-01-2025 Basophils/100 WBC (Bld) 0.5 % 0-1 [facility] Blood urea nitrogen (BUN)/cr eatinine ratioOrdered By: Pepe Au on 01-01-2025 Urea nitrogen/Creatinine [Mass ratio] 19.0 mg/mg 10-20 [facility] Carbon dioxide measurementOr dered By: Pepe Au on 01-01-2025 CO2 [Moles/Vol] 28.0 mmol/L 21.0-32.0 [facility] Chloride measurementOrdered By: Pepe Au on 01-01-2025 Chloride [Moles/Vol] 110 mmol/L High 98-107 [facility] Eosinophil percentageOrdered By: Pepe Au on 01-01-2025 Eosinophils/100 WBC (Bld) 2.3 % 0-5 [facility] Erythrocyte distribution wid th (RBC) [Ratio]Ordered By: Pepe Au on 01-01-2025 Erythrocyte distribution width (RBC) [Entitic vol] 49.0 fL High 35.1-43.9 [facility] Erythrocyte distribution wid th ratioOrdered By: Pepe Au on 01-01-2025 Erythrocyte distribution width (RBC) [Ratio] 13.2 % 11.6-14.6 [facility] Erythrocyte distribution wid th standard deviationOrdered By: Pepe Au on 01-01-2025 Erythrocyte distribution width (RBC) [Ratio] 49.0 fl High 35.1-43.9 [facility] Estimated glomerular filtrat ion rate (GFR) AmericanOrdered By: Pepe Au on 01-01-2025 Estimated GFR (MDRD) Amer 31 mL/min Low >60 [facility] Comment on above: GFR Calc Ferritin measurementOrdered By: Pepe Au on 01-01-2025 Ferritin [Mass/Vol] 152 ng/mL 26-388 [facility] Glomerular filtration rate ( GFR) estimationOrdered By: Pepe Au on 01-01-2025 Estimated GFR (MDRD) Non-Af Amer 25 mL/min Low >60 [facility] Comment on above: Non- GFR Calc GFR/1.73 sq M.predicted among non-blacks MDRD (S/P/Bld) [Vol rate/Area] 25 mL/min/{1.73_m2} Low >60 [facility] Comment on above: Non- GFR Calc Glucose measurementOrdered B y: Pepe Au on 01-01-2025 Glucose [Mass/Vol] 124 mg/dL High 74-106 [facility] Comment on above: Fasting Glucose resu lt from 100 to 125 mg/dL suggests IMPAIRED HOMEOSTASIS per A.D.A. criteria. Hematocrit Auto (Bld) [Volum e fraction]Ordered By: Pepe Au on 01-01-2025 Hematocrit (Bld) [Volume fraction] 35.8 % Low 40-54 [facility] Hemoglobin measurementOrdere d By: Pepe Au on 01-01-2025 Hemoglobin (Bld) [Mass/Vol] 11.5 g/dL Low 13.0-16.5 [facility] Immature granulocytes/100 WB C Auto (Bld)Ordered By: Pepe Au on 01-01-2025 Immature granulocytes/100 WBC (Bld) 0.400 % 0.0-0.9 [facility] Comment on above: IG% - Immature Granu locytes (promyelocytes, myelocytes and metamyelocytes) > 1% indicates that a LEFT SHIFT is Present. Iron (Unsp spec) [Mass/Mass] Ordered By: Pepe Au on 01-01-2025 Iron [Mass/Vol] 53 ug/dL Low 65-175 [facility] Iron measurement (mass/mass) Ordered By: Pepe Au on 01-01-2025 Iron (Unsp spec) [Mass/Mass] 53 ug/dL Low 65-175 [facility] Iron saturation [Mass fracti on]Ordered By: Pepe Au on 01-01-2025 Iron Saturation 25.1 % 15.0-55.0 [facility] Lymphocytes Auto (Unsp spec) [#/Vol]Ordered By: Pepe Au on 01-01-2025 Lymphocytes (Bld) [#/Vol] 1.90 10*3/uL 0.83-4.51 [facility] Lymphocytes/100 WBC Auto (Un sp spec)Ordered By: Pepe Au on 01-01-2025 Lymphocytes/100 WBC (Bld) 24.6 % 19-41 [facility] MCV (mean corpuscular volume ) determinationOrdered By: Pepe Au on 01-01-2025 MCV (RBC) [Entitic vol] 100.3 fL High 80-94 [facility] Mean corpuscular hemoglobin (MCH) determinationOrdered By: Pepe Au on 01-01-2025 MCH (RBC) [Entitic mass] 32.2 pg High 27.0-32.0 [facility] Mean corpuscular hemoglobin concentration (MCHC) determinationOrdered By: Pepe Au on 01-01-2025 MCHC (RBC) [Mass/Vol] 32.1 g/dL 32-36 [facility] Mean platelet volume determi nationOrdered By: Pepe Au on 01-01-2025 Platelet mean volume (Bld) [Entitic vol] 10.5 fL 6.2-12.0 [facility] Monocyte percentageOrdered B y: Pepe Au on 01-01-2025 Monocytes/100 WBC (Bld) 7.0 % 0-10 [facility] Neutrophil percentageOrdered By: Pepe Au on 01-01-2025 Neutrophils/100 WBC (Bld) 65.2 % 47-70 [facility] Nucleated red blood cell per centageOrdered By: Pepe Au on 01-01-2025 Nucleated RBC/100 WBC (Bld) [Ratio] 0 % 0-5 [facility] Phosphorus measurementOrdere d By: Pepe Au on 01-01-2025 Phosphorus Level 3.4 mg/dL 2.5-4.9 [facility] Platelet countOrdered By: Chaim Au on 01-01-2025 Platelets (Bld) [#/Vol] 105 10*3/uL Low 150-450 [facility] Potassium measurementOrdered By: Pepe Au on 01-01-2025 Potassium [Moles/Vol] 4.8 mmol/L 3.5-5.1 [facility] RBC Auto (Bld) [#/Vol]Ordere d By: Pepe Au on 01-01-2025 RBC (Bld) [#/Vol] 3.57 10*6/uL Low 4.6-6.2 [facility] Serum or plasma albumin aubree urement (mass/volume)Ordered By: Pepe Au on 01-01-2025 Albumin [Mass/Vol] 3.4 g/dL 3.2-5.0 [facility] Serum or plasma calcium aubree urement (mass/volume)Ordered By: Pepe Au on 01-01-2025 Calcium [Mass/Vol] 10.2 mg/dL High 8.5-10.1 [facility] Serum or plasma creatinine m easurement (mass/volume)Ordered By: Pepe Au on 01-01-2025 Creatinine [Mass/Vol] 2.58 mg/dL High 0.70-1.30 [facility] Comment on above: The validity of the calculated GFR & GFRAA in patients over 70 years has not been determined. Clinical correlation is essential. Serum or plasma iron saturat ion measurement (mass fraction)Ordered By: Pepe Au on 01-01-2025 Iron saturation [Mass fraction] 25.1 % 15.0-55.0 [facility] Serum or plasma urea nitroge n measurement (mass/volume)Ordered By: Pepe Au on 01-01-2025 Urea nitrogen [Mass/Vol] 49 mg/dL High 7-18 [facility] Sodium levelOrdered By: Lety Au on 01-01-2025 Sodium [Moles/Vol] 142 mmol/L 136-145 [facility] TIBCOrdered By: Pepe coley on 01-01-2025 Total Iron Binding Capacity 211 ug/dL Low 250-450 [facility] White blood cell (WBC) count Ordered By: Pepe Au on 01-01-2025 WBC (Bld) [#/Vol] 7.7 10*3/uL 4.4-11.0 [facility] Absolute neutrophil countOrd ered By: Pepe Au on 12-04-2024 Neutrophils (Bld) [#/Vol] 4.9 10*3/uL 2.0-7.7 [facility] Basophil percentageOrdered B y: Pepe Au on 12-04-2024 Basophils/100 WBC (Bld) 0.5 % 0-1 [facility] Blood urea nitrogen (BUN)/cr eatinine ratioOrdered By: Pepe Au on 12-04-2024 Urea nitrogen/Creatinine [Mass ratio] 18.9 mg/mg 10-20 [facility] Carbon dioxide measurementOr dered By: Pepe Au on 12-04-2024 CO2 [Moles/Vol] 24.0 mmol/L 21.0-32.0 [facility] Chloride measurementOrdered By: Pepe Au on 12-04-2024 Chloride [Moles/Vol] 116 mmol/L High 98-107 [facility] Eosinophil percentageOrdered By: Pepe Au on 12-04-2024 Eosinophils/100 WBC (Bld) 2.8 % 0-5 [facility] Erythrocyte distribution wid th (RBC) [Ratio]Ordered By: Pepe Au on 12-04-2024 Erythrocyte distribution width (RBC) [Entitic vol] 54.9 fL High 35.1-43.9 [facility] Erythrocyte distribution wid th ratioOrdered By: Pepe Au on 12-04-2024 Erythrocyte distribution width (RBC) [Ratio] 14.7 % High 11.6-14.6 [facility] Estimated glomerular filtrat ion rate (GFR) AmericanOrdered By: Pepe Au on 12-04-2024 Estimated GFR (MDRD) Amer 31 mL/min Low >60 [facility] Comment on above: GFR Calc Ferritin measurementOrdered By: Pepe Au on 12-04-2024 Ferritin [Mass/Vol] 140 ng/mL 26-388 [facility] Glomerular filtration rate ( GFR) estimationOrdered By: Pepe Au on 12-04-2024 Estimated GFR (MDRD) Non-Af Amer 26 mL/min Low >60 [facility] Comment on above: Non- GFR Calc Glucose measurementOrdered B y: Pepe Au on 12-04-2024 Glucose [Mass/Vol] 128 mg/dL High 74-106 [facility] Comment on above: Fasting Glucose resu lt greater than or equal to 126 mg/dL suggests DIABETES MELLITUS per A.D.A. criteria. Hematocrit Auto (Bld) [Volum e fraction]Ordered By: Pepe Au on 12-04-2024 Hematocrit (Bld) [Volume fraction] 36.7 % Low 40-54 [facility] Hemoglobin measurementOrdere d By: Pepe Au on 12-04-2024 Hemoglobin (Bld) [Mass/Vol] 11.6 g/dL Low 13.0-16.5 [facility] Immature granulocytes/100 WB C Auto (Bld)Ordered By: Pepe Au on 12-04-2024 Immature granulocytes/100 WBC (Bld) 0.400 % 0.0-0.9 [facility] Comment on above: IG% - Immature Granu locytes (promyelocytes, myelocytes and metamyelocytes) > 1% indicates that a LEFT SHIFT is Present. Iron (Unsp spec) [Mass/Mass] Ordered By: Pepe Au on 12-04-2024 Iron [Mass/Vol] 77 ug/dL 65-175 [facility] Iron saturation [Mass fracti on]Ordered By: Pepe Au on 12-04-2024 Iron Saturation 32.0 % 15.0-55.0 [facility] Lymphocytes Auto (Unsp spec) [#/Vol]Ordered By: Pepe Au on 12-04-2024 Lymphocytes (Bld) [#/Vol] 1.91 10*3/uL 0.83-4.51 [facility] Lymphocytes/100 WBC Auto (Un sp spec)Ordered By: Pepe Au on 12-04-2024 Lymphocytes/100 WBC (Bld) 25.4 % 19-41 [facility] MCV (mean corpuscular volume ) determinationOrdered By: Pepe Au on 12-04-2024 MCV (RBC) [Entitic vol] 101.7 fL High 80-94 [facility] Mean corpuscular hemoglobin (MCH) determinationOrdered By: Pepe Au on 12-04-2024 MCH (RBC) [Entitic mass] 32.1 pg High 27.0-32.0 [facility] Mean corpuscular hemoglobin concentration (MCHC) determinationOrdered By: Pepe Au on 12-04-2024 MCHC (RBC) [Mass/Vol] 31.6 g/dL Low 32-36 [facility] Mean platelet volume determi nationOrdered By: Pepe Au on 12-04-2024 Platelet mean volume (Bld) [Entitic vol] 10.7 fL 6.2-12.0 [facility] Monocyte percentageOrdered B y: Pepe Au on 12-04-2024 Monocytes/100 WBC (Bld) 6.4 % 0-10 [facility] Neutrophil percentageOrdered By: Pepe Au on 12-04-2024 Neutrophils/100 WBC (Bld) 64.5 % 47-70 [facility] Nucleated red blood cell per centageOrdered By: Pepe Au on 12-04-2024 Nucleated RBC/100 WBC (Bld) [Ratio] 0 % 0-5 [facility] Phosphorus measurementOrdere d By: Pepe Au on 12-04-2024 Phosphorus Level 3.2 mg/dL 2.5-4.9 [facility] Platelet countOrdered By: Chaim Au on 12-04-2024 Platelets (Bld) [#/Vol] 117 10*3/uL Low 150-450 [facility] Potassium measurementOrdered By: Pepe Au on 12-04-2024 Potassium [Moles/Vol] 5.0 mmol/L 3.5-5.1 [facility] RBC Auto (Bld) [#/Vol]Ordere d By: Pepe Au on 12-04-2024 RBC (Bld) [#/Vol] 3.61 10*6/uL Low 4.6-6.2 [facility] Serum or plasma albumin aubree urement (mass/volume)Ordered By: Pepe Au on 12-04-2024 Albumin [Mass/Vol] 3.5 g/dL 3.2-5.0 [facility] Serum or plasma calcium aubree urement (mass/volume)Ordered By: Pepe Au on 12-04-2024 Calcium [Mass/Vol] 9.6 mg/dL 8.5-10.1 [facility] Serum or plasma creatinine m easurement (mass/volume)Ordered By: Pepe Au on 12-04-2024 Creatinine [Mass/Vol] 2.54 mg/dL High 0.70-1.30 [facility] Comment on above: The validity of the calculated GFR & GFRAA in patients over 70 years has not been determined. Clinical correlation is essential. Serum or plasma urea nitroge n measurement (mass/volume)Ordered By: Pepe Au on 12-04-2024 Urea nitrogen [Mass/Vol] 48 mg/dL High 7-18 [facility] Sodium levelOrdered By: Lety Au on 12-04-2024 Sodium [Moles/Vol] 143 mmol/L 136-145 [facility] TIBCOrdered By: Pepe coley on 12-04-2024 Total Iron Binding Capacity 241 ug/dL Low 250-450 [facility] White blood cell (WBC) count Ordered By: Pepe Au on 12-04-2024 WBC (Bld) [#/Vol] 7.5 10*3/uL 4.4-11.0 [facility] Absolute neutrophil countOrd ered By: Pepe Au on 10-31-2024 Neutrophils (Bld) [#/Vol] 4.2 10*3/uL 2.0-7.7 [facility] Basophil percentageOrdered B y: Pepe Au on 10-31-2024 Basophils/100 WBC (Bld) 0.3 % 0-1 [facility] Blood urea nitrogen (BUN)/cr eatinine ratioOrdered By: Pepe Au on 10-31-2024 Urea nitrogen/Creatinine [Mass ratio] 27.8 mg/mg High 10-20 [facility] Carbon dioxide measurementOr dered By: Pepe Au on 10-31-2024 CO2 [Moles/Vol] 24.0 mmol/L 21.0-32.0 [facility] Chloride measurementOrdered By: Pepe Au on 10-31-2024 Chloride [Moles/Vol] 113 mmol/L High 98-107 [facility] Eosinophil percentageOrdered By: Pepe Au on 10-31-2024 Eosinophils/100 WBC (Bld) 4.2 % 0-5 [facility] Erythrocyte distribution wid th (RBC) [Ratio]Ordered By: Pepe Au on 10-31-2024 Erythrocyte distribution width (RBC) [Entitic vol] 51.4 fL High 35.1-43.9 [facility] Erythrocyte distribution wid th ratioOrdered By: Pepe Au on 10-31-2024 Erythrocyte distribution width (RBC) [Ratio] 14.3 % 11.6-14.6 [facility] Estimated glomerular filtrat ion rate (GFR) AmericanOrdered By: Pepe Au on 10-31-2024 Estimated GFR (MDRD) Amer 32 mL/min Low >60 [facility] Comment on above: GFR Calc Ferritin measurementOrdered By: Pepe Au on 10-31-2024 Ferritin [Mass/Vol] 176 ng/mL 26-388 [facility] Glomerular filtration rate ( GFR) estimationOrdered By: Pepe Au on 10-31-2024 Estimated GFR (MDRD) Non-Af Amer 26 mL/min Low >60 [facility] Comment on above: Non- GFR Calc Glucose measurementOrdered B y: Pepe Au on 10-31-2024 Glucose [Mass/Vol] 145 mg/dL High 74-106 [facility] Comment on above: Fasting Glucose resu lt greater than or equal to 126 mg/dL suggests DIABETES MELLITUS per A.D.A. criteria. Hematocrit Auto (Bld) [Volum e fraction]Ordered By: Pepe Au on 10-31-2024 Hematocrit (Bld) [Volume fraction] 33.6 % Low 40-54 [facility] Hemoglobin measurementOrdere d By: Pepe Au on 10-31-2024 Hemoglobin (Bld) [Mass/Vol] 10.9 g/dL Low 13.0-16.5 [facility] Immature granulocytes/100 WB C Auto (Bld)Ordered By: Pepe Au on 10-31-2024 Immature granulocytes/100 WBC (Bld) 0.600 % 0.0-0.9 [facility] Comment on above: IG% - Immature Granu locytes (promyelocytes, myelocytes and metamyelocytes) > 1% indicates that a LEFT SHIFT is Present. Intact parathyroid hormone ( iPTH) measurementOrdered By: Pepe Au on 10-31-2024 Parathyroid Hormone (Intact) 16.0 pg/mL Low 18.4-80.1 [facility] Iron (Unsp spec) [Mass/Mass] Ordered By: Pepe Au on 10-31-2024 Iron [Mass/Vol] 63 ug/dL Low 65-175 [facility] Iron saturation [Mass fracti on]Ordered By: Pepe Au on 10-31-2024 Iron Saturation 26.7 % 15.0-55.0 [facility] Lymphocytes Auto (Unsp spec) [#/Vol]Ordered By: Pepe Au on 10-31-2024 Lymphocytes (Bld) [#/Vol] 1.70 10*3/uL 0.83-4.51 [facility] Lymphocytes/100 WBC Auto (Un sp spec)Ordered By: Pepe Au on 10-31-2024 Lymphocytes/100 WBC (Bld) 25.4 % 19-41 [facility] MCV (mean corpuscular volume ) determinationOrdered By: Pepe Au on 10-31-2024 MCV (RBC) [Entitic vol] 99.4 fL High 80-94 [facility] Mean corpuscular hemoglobin (MCH) determinationOrdered By: Pepe Au on 10-31-2024 MCH (RBC) [Entitic mass] 32.2 pg High 27.0-32.0 [facility] Mean corpuscular hemoglobin concentration (MCHC) determinationOrdered By: Pepe Au on 10-31-2024 MCHC (RBC) [Mass/Vol] 32.4 g/dL 32-36 [facility] Mean platelet volume determi nationOrdered By: Pepe Au on 10-31-2024 Platelet mean volume (Bld) [Entitic vol] 10.8 fL 6.2-12.0 [facility] Monocyte percentageOrdered B y: Pepe Au on 10-31-2024 Monocytes/100 WBC (Bld) 6.4 % 0-10 [facility] Neutrophil percentageOrdered By: Pepe Au on 10-31-2024 Neutrophils/100 WBC (Bld) 63.1 % 47-70 [facility] Nucleated red blood cell per centageOrdered By: Pepe Au on 10-31-2024 Nucleated RBC/100 WBC (Bld) [Ratio] 0 % 0-5 [facility] Phosphorus measurementOrdere d By: Pepe Au on 10-31-2024 Phosphorus Level 3.5 mg/dL 2.5-4.9 [facility] Platelet countOrdered By: Chaim Au on 10-31-2024 Platelets (Bld) [#/Vol] 133 10*3/uL Low 150-450 [facility] Potassium measurementOrdered By: Pepe Au on 10-31-2024 Potassium [Moles/Vol] 4.4 mmol/L 3.5-5.1 [facility] RBC Auto (Bld) [#/Vol]Ordere d By: Pepe Au on 10-31-2024 RBC (Bld) [#/Vol] 3.38 10*6/uL Low 4.6-6.2 [facility] Serum or plasma albumin aubree urement (mass/volume)Ordered By: Pepe Au on 10-31-2024 Albumin [Mass/Vol] 3.4 g/dL 3.2-5.0 [facility] Serum or plasma calcium aubree urement (mass/volume)Ordered By: Pepe Au on 10-31-2024 Calcium [Mass/Vol] 9.7 mg/dL 8.5-10.1 [facility] Serum or plasma creatinine m easurement (mass/volume)Ordered By: Pepe Au on 10-31-2024 Creatinine [Mass/Vol] 2.52 mg/dL High 0.70-1.30 [facility] Comment on above: The validity of the calculated GFR & GFRAA in patients over 70 years has not been determined. Clinical correlation is essential. Serum or plasma urea nitroge n measurement (mass/volume)Ordered By: Pepe Au on 10-31-2024 Urea nitrogen [Mass/Vol] 70 mg/dL High 7-18 [facility] Sodium levelOrdered By: Lety Au on 10-31-2024 Sodium [Moles/Vol] 143 mmol/L 136-145 [facility] TIBCOrdered By: Pepe coley on 10-31-2024 Total Iron Binding Capacity 236 ug/dL Low 250-450 [facility] White blood cell (WBC) count Ordered By: Pepe Au on 10-31-2024 WBC (Bld) [#/Vol] 6.7 10*3/uL 4.4-11.0 [facility] Basophil percentageOrdered B y: Rios Downey on 03-22-2024 Bilirubin [Mass/Vol] 0.60 mg/dL 0.20-1.00 [facility] Comment on above: For patients on eltr ombopag therapy, use of Dimension Latty TBIL is not recommended. Chloride [Moles/Vol] 113 mmol/L 98-107 [facility] Cholesterol [Mass/Vol] 191 mg/dL <200 [facility] Comment on above: <200 mg/dL Desirable 200-240 mg/dL Borderline >240 mg/dL High Risk Glucose [Mass/Vol] 133 mg/dL 74-106 [facility] Comment on above: Fasting Glucose resu lt greater than or equal to 126 mg/dL suggests DIABETES MELLITUS per A.D.A. criteria. Hemoglobin (Bld) [Mass/Vol] 11.4 g/dL 13.0-16.5 [facility] Potassium [Moles/Vol] 4.7 mmol/L 3.5-5.1 [facility] Protein [Mass/Vol] 7.4 g/dL 6.4-8.2 [facility] Sodium [Moles/Vol] 143 mmol/L 136-145 [facility] Triglyceride [Mass/Vol] 132 mg/dL <199 [facility] Comment on above: The drugs N-Acetylcy steine and Metamizole may falsely depress this assay.Serum Triglycerides Reference Interval Normal <150 mg/dL Borderline high 150 - 199 mg/dL High 200 - 499 mg/dL Very High > or = 500 mg/dL WBC (Bld) [#/Vol] 8.3 10*3/uL 4.4-11.0 [facility] Cholesterol in LDL Direct as say [Mass/Vol]Ordered By: Rios Downey on 03-22-2024 Cholesterol in LDL [Mass/Vol] 140 mg/dL 0-99 [facility] Determination of erythrocyte mean corpuscular volume (MCV)Ordered By: Rios Downey on 03-22-2024 MCV (RBC) [Entitic vol] 96.2 fL 80-94 [facility] Erythrocyte distribution wid th ratioOrdered By: Rios Downey on 03-22-2024 Erythrocyte distribution width (RBC) [Ratio] 15.1 % 11.6-14.6 [facility] Erythrocyte distribution wid th standard deviationOrdered By: Rios Downey on 03-22-2024 Erythrocyte distribution width (RBC) [Entitic vol] 52.4 fL 35.1-43.9 [facility] Hematocrit Auto (Bld) [Volum e fraction]Ordered By: Rios Downey on 03-22-2024 Hematocrit (Bld) [Volume fraction] 35.8 % 40-54 [facility] Laboratory - Chemistry and C hemistry - challengeOrdered By: Rios Downey on 03-22-2024 Albumin/Globulin [Mass ratio] 0.8 {ratio} 0.9-2.4 [facility] ALP [Catalytic activity/Vol] 141 U/L 45-117 [facility] ALT [Catalytic activity/Vol] 14 U/L 16-61 [facility] Cholesterol in HDL [Mass/Vol] 33 mg/dL >40 [facility] Comment on above: The drugs N-Acetylcy steine and Metamizole may falsely depress this assay. Reference Range HDL <40 mg/dL Low HDL Cholesterol HDL >or= 60 mg/dL High HDL Cholesterol Cholesterol in LDL [Mass/Vol] 132 mg/dL 0-130 [facility] CO2 [Moles/Vol] 24.0 mmol/L 21.0-32.0 [facility] Cobalamin (Vitamin B12) [Mass/Vol] 470 pg/mL 211-911 [facility] Globulin (S) [Mass/Vol] 4.1 g/dL 2.2-4.2 [facility] Magnesium [Mass/Vol] 1.8 mg/dL 1.6-2.6 [facility] Urea nitrogen/Creatinine [Mass ratio] 18.2 mg/mg 10-20 [facility] Laboratory - Hematology and Cell countsOrdered By: Rios Downey on 03-22-2024 MCH (RBC) [Entitic mass] 30.6 pg 27.0-32.0 [facility] MCHC (RBC) [Mass/Vol] 31.8 g/dL 32-36 [facility] Platelet mean volume (Bld) [Entitic vol] 10.5 fL 6.2-12.0 [facility] Platelets (Bld) [#/Vol] 138 10*3/uL 150-450 [facility] Laboratory - Miscellaneous t estsOrdered By: Rios Downey on 03-22-2024 Service comment (Unsp spec) [Interp] TNP [facility] Comment on above: Test not performed No Panel InformationOrdered By: Rios Downey on 03-22-2024 Anti-Nuclear Antibody Screen Negative Negative [facility] Comment on above: Performed at: [employer] [facility] [address] [id number] Director: Nabeel Ruff PhD, Phone: [phone] Estimated GFR (MDRD) Amer 37 mL/min >60 [facility] Comment on above: GFR Calc Estimated GFR (MDRD) Non-Af Amer 31 mL/min >60 [facility] Comment on above: Non- GFR Calc Folate 26.90 ng/mL 3.1-55.4 [facility] Levetiracetam (Keppra) Level 55.2 ug/mL 10.0-40.0 [facility] Comment on above: Performed at: - [address] [id number] Director: Nabeel Ruff PhD, Phone: [phone] at: - [facility] [id number] Director: Suzy Adames MD, Phone: [phone] Vitamin D 25-Hydroxy 46.6 ng/mL [facility] Comment on above: Vitamin D 25(OH) Sta tus Range Deficiency <20 ng/mL (50nmol/L) Insufficiency 20 - 30 ng/mL (50 - 75 nmol/L) Sufficiency 30 - 100 ng/mL (75 - 250 nmol/L) Toxicity >100 ng/mL (>250 nmol/L) VLDL Cholesterol 26 mg/dL 5-40 [facility] RBC Auto (Bld) [#/Vol]Ordere d By: Rios Downey on 03-22-2024 RBC (Bld) [#/Vol] 3.72 10*6/uL 4.6-6.2 [facility] Serum or plasma calcium aubree urement (mass/volume)Ordered By: Rios Downey on 03-22-2024 Calcium [Mass/Vol] 9.1 mg/dL 8.5-10.1 [facility] Serum or plasma creatinine m easurement (mass/volume)Ordered By: Rios Downey on 03-22-2024 Creatinine [Mass/Vol] 2.20 mg/dL 0.70-1.30 [facility] Comment on above: The validity of the calculated GFR & GFRAA in patients over 70 years has not been determined. Clinical correlation is essential. Serum or plasma thyroid stim ulating hormone (TSH) measurement (units/volume)Ordered By: Rios Downey on 03-22-2024 TSH Qn 6.21 uIU/mL 0.358-3.74 [facility] Serum or plasma transthyreti n measurement (mass/volume)Ordered By: Rios Downey on 03-22-2024 Prealbumin [Mass/Vol] 19.8 mg/dL 20.0-40.0 [facility] Serum or plasma urea nitroge n measurement (mass/volume)Ordered By: Rios Downey on 03-22-2024 Urea nitrogen [Mass/Vol] 40 mg/dL 7-18 [facility] Serum or plasma uric acid me asurement (mass/volume)Ordered By: Rios Downey on 03-22-2024 Urate [Mass/Vol] 5.5 mg/dL 3.5-7.2 [facility] Comment on above: The drugs N-Acetylcy steine and Metamizole may falsely depress this assay. Thin prep Papanicolaou smear with manual screeningOrdered By: Rios Downey on 03-22-2024 Thin prep Papanicolaou smear with manual screening 3.3 g/dL 3.2-5.0 [facility] Thin prep Papanicolaou smear with manual screening 17 U/L 15-37 [facility] Thin prep Papanicolaou smear with manual screening 6 5-15 [facility] Thin prep Papanicolaou smear with manual screening 0.59 ng/dL 0.76-1.46 [facility] Whole blood hemoglobin A1c/t otal hemoglobin ratio (mass fraction)Ordered By: Rios Downey on 03-22-2024 HbA1c (Bld) [Mass fraction] 5.2 % 3.8-5.6 [facility] Comment on above: Normal < 5.7 % Predi abetic 5.7 - 6.4 % Diabetic >or= 6.5 % Please note range changes. Absolute lymphocyte countOrd ered By: Pepe Au on 03-14-2024 Lymphocytes Auto (Unsp spec) [#/Vol] 1.98 10*3/uL 0.83-4.51 [facility] Automated lymphocyte count a s percentage of total leukocytesOrdered By: Pepe Au on 03-14-2024 Lymphocytes/100 WBC Auto (Unsp spec) 25.4 % 19-41 [facility] Basophil percentageOrdered B y: Pepe Au on 03-14-2024 Basophil percentage 2.4 mg/dL 2.5-4.9 [facility] Basophils/100 WBC (Bld) 0.6 % 0-1 [facility] Chloride [Moles/Vol] 112 mmol/L 98-107 [facility] Eosinophils/100 WBC (Bld) 3.9 % 0-5 [facility] Glucose [Mass/Vol] 120 mg/dL 74-106 [facility] Comment on above: Fasting Glucose resu lt from 100 to 125 mg/dL suggests IMPAIRED HOMEOSTASIS per A.D.A. criteria. Hemoglobin (Bld) [Mass/Vol] 11.2 g/dL 13.0-16.5 [facility] Monocytes/100 WBC (Bld) 6.9 % 0-10 [facility] Neutrophils (Bld) [#/Vol] 4.9 10*3/uL 2.0-7.7 [facility] Neutrophils/100 WBC (Bld) 62.9 % 47-70 [facility] Potassium [Moles/Vol] 4.3 mmol/L 3.5-5.1 [facility] Sodium [Moles/Vol] 140 mmol/L 136-145 [facility] WBC (Bld) [#/Vol] 7.8 10*3/uL 4.4-11.0 [facility] Determination of erythrocyte mean corpuscular volume (MCV)Ordered By: Pepe Au on 03-14-2024 MCV (RBC) [Entitic vol] 95.9 fL 80-94 [facility] Erythrocyte distribution wid th ratioOrdered By: [facility] Angely on 03-14-2024 Erythrocyte distribution width (RBC) [Ratio] 14.7 % 11.6-14.6 [facility] Erythrocyte distribution wid th standard deviationOrdered By: [facility] Angely on 03-14-2024 Erythrocyte distribution width (RBC) [Entitic vol] 51.0 fL 35.1-43.9 [facility] Hematocrit Auto (Bld) [Volum e fraction]Ordered By: [facility] Au on 03-14-2024 Hematocrit (Bld) [Volume fraction] 34.7 % 40-54 [facility] Immature granulocytes/100 WB C Auto (Bld)Ordered By: Pepe Au on 03-14-2024 Immature granulocytes/100 WBC (Bld) 0.300 % 0.0-0.9 [facility] Comment on above: IG% - Immature Granu locytes (promyelocytes, myelocytes and metamyelocytes) > 1% indicates that a LEFT SHIFT is Present. Iron measurement (mass/mass) Ordered By: Pepe Au on 03-14-2024 Iron (Unsp spec) [Mass/Mass] 66 ug/dL 65-175 [facility] Laboratory - Chemistry and C hemistry - challengeOrdered By: Pepe Au on 03-14-2024 CO2 [Moles/Vol] 27.0 mmol/L 21.0-32.0 [facility] Ferritin [Mass/Vol] 122 ng/mL 26-388 [facility] Urea nitrogen/Creatinine [Mass ratio] 22.7 mg/mg 10-20 [facility] Laboratory - Hematology and Cell countsOrdered By: Pepe Au on 03-14-2024 MCH (RBC) [Entitic mass] 30.9 pg 27.0-32.0 [facility] MCHC (RBC) [Mass/Vol] 32.3 g/dL 32-36 [facility] Nucleated RBC/100 WBC (Bld) [Ratio] 0 % 0-5 [facility] Platelet mean volume (Bld) [Entitic vol] 10.3 fL 6.2-12.0 [facility] Platelets (Bld) [#/Vol] 132 10*3/uL 150-450 [facility] No Panel InformationOrdered By: Pepe Au on 03-14-2024 Estimated GFR (MDRD) Amer 41 mL/min >60 [facility] Comment on above: GFR Calc Estimated GFR (MDRD) Non-Af Amer 34 mL/min >60 [facility] Comment on above: Non- GFR Calc Total Iron Binding Capacity 197 ug/dL 250-450 [facility] RBC Auto (Bld) [#/Vol]Ordere d By: Pepe Au on 03-14-2024 RBC (Bld) [#/Vol] 3.62 10*6/uL 4.6-6.2 [facility] Serum or plasma calcium aubree urement (mass/volume)Ordered By: Pepe Au on 03-14-2024 Calcium [Mass/Vol] 8.7 mg/dL 8.5-10.1 [facility] Serum or plasma creatinine m easurement (mass/volume)Ordered By: Pepe Au on 03-14-2024 Creatinine [Mass/Vol] 2.03 mg/dL 0.70-1.30 [facility] Comment on above: The validity of the calculated GFR & GFRAA in patients over 70 years has not been determined. Clinical correlation is essential. Serum or plasma iron saturat ion measurement (mass fraction)Ordered By: [facility] on 03-14-2024 Iron saturation [Mass fraction] 33.5 % 15.0-55.0 [facility] Serum or plasma urea nitroge n measurement (mass/volume)Ordered By: [facility] Au on 03-14-2024 Urea nitrogen [Mass/Vol] 46 mg/dL 7-18 [facility] Thin prep Papanicolaou smear with manual screeningOrdered By: [facility] Au on 03-14-2024 Thin prep Papanicolaou smear with manual screening 3.2 g/dL 3.2-5.0 [facility] Absolute lymphocyte countOrd ered By: Cesar Medina on 02-19-2024 Lymphocytes Auto (Unsp spec) [#/Vol] 1.41 10*3/uL 0.83-4.51 [facility] Automated lymphocyte count a s percentage of total leukocytesOrdered By: Cesar Medina on 02-19-2024 Lymphocytes/100 WBC Auto (Unsp spec) 23.0 % 19-41 [facility] Basophil percentageOrdered B y: Cesar Medina on 02-19-2024 Basophil percentage 0 SEEN /hpf 0-5 [facility] Ammonia (P) [Moles/Vol] 20.0 umol/L 11-32 [facility] Basophils/100 WBC (Bld) 0.3 % 0-1 [facility] Bilirubin [Mass/Vol] 0.40 mg/dL 0.20-1.00 [facility] Comment on above: For patients on eltr ombopag therapy, use of Dimension Latty TBIL is not recommended. Chloride [Moles/Vol] 117 mmol/L 98-107 [facility] Eosinophils/100 WBC (Bld) 4.2 % 0-5 [facility] Glucose [Mass/Vol] 101 mg/dL 74-106 [facility] Comment on above: Fasting Glucose resu lt from 100 to 125 mg/dL suggests IMPAIRED HOMEOSTASIS per A.D.A. criteria. Hemoglobin (Bld) [Mass/Vol] 11.9 g/dL 13.0-16.5 [facility] Monocytes/100 WBC (Bld) 5.9 % 0-10 [facility] Neutrophils (Bld) [#/Vol] 4.1 10*3/uL 2.0-7.7 [facility] Neutrophils/100 WBC (Bld) 66.4 % 47-70 [facility] Potassium [Moles/Vol] 4.0 mmol/L 3.5-5.1 [facility] Protein [Mass/Vol] 7.5 g/dL 6.4-8.2 [facility] Sodium [Moles/Vol] 142 mmol/L 136-145 [facility] WBC (Bld) [#/Vol] 6.1 10*3/uL 4.4-11.0 [facility] Bilirubin Test strip Ql (U)O rdered By: Cesar Medina on 02-19-2024 Bilirubin Ql (U) Negative Negative [facility] Determination of erythrocyte mean corpuscular volume (MCV)Ordered By: Cesar Medina on 02-19-2024 MCV (RBC) [Entitic vol] 93.7 fL 80-94 [facility] Erythrocyte distribution wid th ratioOrdered By: Cesar Medina on 02-19-2024 Erythrocyte distribution width (RBC) [Ratio] 14.4 % 11.6-14.6 [facility] Erythrocyte distribution wid th standard deviationOrdered By: Cesar Medina on 02-19-2024 Erythrocyte distribution width (RBC) [Entitic vol] 48.8 fL 35.1-43.9 [facility] Hematocrit Auto (Bld) [Volum e fraction]Ordered By: Cesar Medina on 02-19-2024 Hematocrit (Bld) [Volume fraction] 35.9 % 40-54 [facility] Immature granulocytes/100 WB C Auto (Bld)Ordered By: Cesar Medina on 02-19-2024 Immature granulocytes/100 WBC (Bld) 0.200 % 0.0-0.9 [facility] Comment on above: IG% - Immature Granu locytes (promyelocytes, myelocytes and metamyelocytes) > 1% indicates that a LEFT SHIFT is Present. Ketones Test strip Ql (U)Ord ered By: Cesar Medina on 02-19-2024 Ketones Ql (U) Negative Negative [facility] Laboratory - Chemistry and C hemistry - challengeOrdered By: Cesar Medina on 02-19-2024 Albumin/Globulin [Mass ratio] 0.7 {ratio} 0.9-2.4 [facility] ALP [Catalytic activity/Vol] 167 U/L 45-117 [facility] ALT [Catalytic activity/Vol] 15 U/L 16-61 [facility] CO2 [Moles/Vol] 17.0 mmol/L 21.0-32.0 [facility] Globulin (S) [Mass/Vol] 4.5 g/dL 2.2-4.2 [facility] Lipase [Catalytic activity/Vol] 22 U/L 13-75 [facility] Comment on above: Please note:LIPASE r evised reference range effective 23. New Lipase methodology. Expected to produce lower values than the previous assay method. NEW Reference Range: 13 - 75 U/L Natriuretic peptide B (Bld) [Mass/Vol] 271.7 pg/mL 0-100 [facility] Urea nitrogen/Creatinine [Mass ratio] 19.6 mg/mg 10-20 [facility] Laboratory - Hematology and Cell countsOrdered By: Cesar Medina on 02-19-2024 MCH (RBC) [Entitic mass] 31.1 pg 27.0-32.0 [facility] MCHC (RBC) [Mass/Vol] 33.1 g/dL 32-36 [facility] Nucleated RBC/100 WBC (Bld) [Ratio] 0 % 0-5 [facility] Platelet mean volume (Bld) [Entitic vol] 10.6 fL 6.2-12.0 [facility] Platelets (Bld) [#/Vol] 137 10*3/uL 150-450 [facility] Laboratory - Microbiology an d Antimicrobial susceptibilityOrdered By: Cesar Medina on 02-19-2024 SARS-CoV-2 (COVID-19) RNA ELIANE+probe Ql (Unsp spec) [facility] Mucus LM Ql (Urine sed)Order ed By: Cesar Medina on 02-19-2024 Mucus Ql (Urine sed) 0 SEEN /hpf [facility] Nitrite Test strip Ql (U)Ord ered By: Cesar Medina on 02-19-2024 Nitrite Ql (U) Negative Negative [facility] No Panel InformationOrdered By: Cesar Medina on 02-19-2024 Urine RBC 0 SEEN /hpf 0-5 [facility] Estimated Creatinine Clearance Calc 25.73 ml/min [facility] Estimated GFR (MDRD) Amer 32 mL/min >60 [facility] Comment on above: GFR Calc Estimated GFR (MDRD) Non-Af Amer 26 mL/min >60 [facility] Comment on above: Non- GFR Calc Troponin I High Sensitivity 63 pg/mL 3.0-78.0 [facility] Comment on above: Please Note: New Meghana t Units and Gender Specific Reference Ranges. For more information see Policy Stat Procedure Latty High Sensitivity Troponin (TNIH) and attachments. Protein Test strip Ql (U)Ord ered By: Cesar Medina on 02-19-2024 Protein Ql (U) 30 mg/dl Negative [facility] RBC Auto (Bld) [#/Vol]Ordere d By: Cesar Medina on 02-19-2024 RBC (Bld) [#/Vol] 3.83 10*6/uL 4.6-6.2 [facility] Serum or plasma calcium aubree urement (mass/volume)Ordered By: Cesar Medina on 02-19-2024 Calcium [Mass/Vol] 8.7 mg/dL 8.5-10.1 [facility] Serum or plasma creatinine m easurement (mass/volume)Ordered By: Cesar Medina on 02-19-2024 Creatinine [Mass/Vol] 2.50 mg/dL 0.70-1.30 [facility] Comment on above: The validity of the calculated GFR & GFRAA in patients over 70 years has not been determined. Clinical correlation is essential. Serum or plasma urea nitroge n measurement (mass/volume)Ordered By: Cesar Medina on 02-19-2024 Urea nitrogen [Mass/Vol] 49 mg/dL 7-18 [facility] Squamous epithelial cells de tection in urine sediment by light microscopyOrdered By: Cesar Medina on 02-19-2024 Epithelial cells.squamous LM Ql (Urine sed) 0 SEEN /hpf 0-5 [facility] Thin prep Papanicolaou smear with manual screeningOrdered By: Cesar Medina on 02-19-2024 Thin prep Papanicolaou smear with manual screening 3.0 g/dL 3.2-5.0 [facility] Thin prep Papanicolaou smear with manual screening 20 U/L 15-37 [facility] Thin prep Papanicolaou smear with manual screening 8 5-15 [facility] Urine blood detectionOrdered By: Cesar Medina on 02-19-2024 RBC Ql (U) 10 /ul Negative [facility] Urine clarityOrdered By: Jodie Medina on 02-19-2024 Clarity (U) Clear Clear [facility] Urine color determinationOrd ered By: Cesar Medina on 02-19-2024 Color (U) Yellow Yellow [facility] Urine glucose detectionOrder ed By: Cesar Medina on 02-19-2024 Glucose Ql (U) Normal mg/dl Normal [facility] Urine leukocyte esterase det ection by dipstickOrdered By: Cesar Medina on 02-19-2024 Leukocyte esterase Test strip Ql (U) Negative Negative [facility] Urine pHOrdered By: Cesar deras on 02-19-2024 pH (U) 6.0 [pH] 5.0 - 8.0 [facility] Urine sediment bacteria coun t by microscopy (number/high power field)Ordered By: Cesar Medina on 02-19-2024 Bacteria LM.HPF (Urine sed) [#/Area] 0 /[HPF] None Seen [facility] Urine specific gravity measu rementOrdered By: Cesar Medina on 02-19-2024 Specific gravity (U) [Rel density] 1.015 1.002-1.030 [facility] Urine urobilinogen measureme ntOrdered By: Cesar Medina on 02-19-2024 Urobilinogen Ql (U) Normal mg/dl Normal [facility] Basophil percentageOrdered B y: Angélica Palomo on 02-16-2024 Basophil percentage 0 SEEN /hpf 0-5 [facility] Bilirubin Test strip Ql (U)O rdered By: Angélica Palomo on 02-16-2024 Bilirubin Ql (U) Negative Negative [facility] Hyaline casts LM.LPF (Urine sed) [#/Area]Ordered By: Angélica Palomo on 02-16-2024 Hyaline casts (Urine sed) [#/Area] 0 /[LPF] 0-5 [facility] Ketones Test strip Ql (U)Ord ered By: Angélica Palomo on 02-16-2024 Ketones Ql (U) Negative Negative [facility] Mucus LM Ql (Urine sed)Order ed By: Angélica Palomo on 02-16-2024 Mucus Ql (Urine sed) 0 SEEN /hpf [facility] Nitrite Test strip Ql (U)Ord ered By: Angélica Palomo on 02-16-2024 Nitrite Ql (U) Negative Negative [facility] No Panel InformationOrdered By: Angélica Palomo on 02-16-2024 Urine RBC 0 SEEN /hpf 0-5 [facility] Protein Test strip Ql (U)Ord ered By: Angélica Palomo on 02-16-2024 Protein Ql (U) 100 mg/dl Negative [facility] Squamous epithelial cells de tection in urine sediment by light microscopyOrdered By: Angélica Palomo on 02-16-2024 Epithelial cells.squamous LM Ql (Urine sed) 0-5 SEEN /hpf 0-5 [facility] Urine blood detectionOrdered By: Angélica Palomo on 02-16-2024 RBC Ql (U) 10 /ul Negative [facility] Urine clarityOrdered By: Dee Palomo on 02-16-2024 Clarity (U) Clear Clear [facility] Urine coarse granular cast d etectionOrdered By: Angélica Palomo on 02-16-2024 Coarse Granular Casts LM Ql (Urine sed) 0-5 SEEN /lpf 0-5 /lpf [facility] Urine color determinationOrd ered By: Angélica Palomo on 02-16-2024 Color (U) Yellow Yellow [facility] Urine glucose detectionOrder ed By: Angélica Palomo on 02-16-2024 Glucose Ql (U) Normal mg/dl Normal [facility] Urine leukocyte esterase det ection by dipstickOrdered By: Angélica Plaomo on 02-16-2024 Leukocyte esterase Test strip Ql (U) Negative Negative [facility] Urine pHOrdered By: Angélica sher on 02-16-2024 pH (U) 6.0 [pH] 5.0 - 8.0 [facility] Urine sediment bacteria coun t by microscopy (number/high power field)Ordered By: Angélica Palomo on 02-16-2024 Bacteria LM.HPF (Urine sed) [#/Area] RARE /hpf None Seen [facility] Urine specific gravity measu rementOrdered By: Angélica Palomo on 02-16-2024 Specific gravity (U) [Rel density] 1.020 1.002-1.030 [facility] Urine urobilinogen measureme ntOrdered By: Angélica Palomo on 02-16-2024 Urobilinogen Ql (U) Normal mg/dl Normal [facility] Absolute lymphocyte countOrd ered By: Angélica Palomo on 02-15-2024 Lymphocytes Auto (Unsp spec) [#/Vol] 1.62 10*3/uL 0.83-4.51 [facility] Absolute lymphocyte countOrd ered By: Pepe Au on 02-15-2024 Lymphocytes Auto (Unsp spec) [#/Vol] 1.93 10*3/uL 0.83-4.51 [facility] Automated lymphocyte count a s percentage of total leukocytesOrdered By: Angélica Palomo on 02-15-2024 Lymphocytes/100 WBC Auto (Unsp spec) 21.2 % [facility] Automated lymphocyte count a s percentage of total leukocytesOrdered By: Pepe Au on 02-15-2024 Lymphocytes/100 WBC Auto (Unsp spec) 21.1 % [facility] Basophil percentageOrdered B y: Pepe Au on 02-15-2024 Basophils/100 WBC (Bld) 0.3 % 0-1 [facility] Hemoglobin (Bld) [Mass/Vol] 12.9 g/dL 13.0-16.5 [facility] Basophil percentage 3.1 mg/dL 2.5-4.9 [facility] Chloride [Moles/Vol] 115 mmol/L 98-107 [facility] Eosinophils/100 WBC (Bld) 1.2 % 0-5 [facility] Glucose [Mass/Vol] 112 mg/dL 74-106 [facility] Comment on above: Fasting Glucose resu lt from 100 to 125 mg/dL suggests IMPAIRED HOMEOSTASIS per A.D.A. criteria. Monocytes/100 WBC (Bld) 8.2 % 0-10 [facility] Neutrophils (Bld) [#/Vol] 6.3 10*3/uL 2.0-7.7 [facility] Neutrophils/100 WBC (Bld) 68.9 % 47-70 [facility] Potassium [Moles/Vol] 4.2 mmol/L 3.5-5.1 [facility] Sodium [Moles/Vol] 140 mmol/L 136-145 [facility] WBC (Bld) [#/Vol] 9.2 10*3/uL 4.4-11.0 [facility] Basophil percentageOrdered B y: Angélica Palomo on 02-15-2024 Bilirubin [Mass/Vol] 0.40 mg/dL 0.20-1.00 [facility] Comment on above: For patients on eltr ombopag therapy, use of Dimension Latty TBIL is not recommended. Chloride [Moles/Vol] 116 mmol/L 98-107 [facility] Eosinophils/100 WBC (Bld) 2.2 % 0-5 [facility] Glucose [Mass/Vol] 116 mg/dL 74-106 [facility] Comment on above: Fasting Glucose resu lt from 100 to 125 mg/dL suggests IMPAIRED HOMEOSTASIS per A.D.A. criteria. Monocytes/100 WBC (Bld) 8.6 % 0-10 [facility] Neutrophils (Bld) [#/Vol] 5.1 10*3/uL 2.0-7.7 [facility] Neutrophils/100 WBC (Bld) 67.3 % 47-70 [facility] Potassium [Moles/Vol] 4.1 mmol/L 3.5-5.1 [facility] Protein [Mass/Vol] 7.7 g/dL 6.4-8.2 [facility] Sodium [Moles/Vol] 142 mmol/L 136-145 [facility] WBC (Bld) [#/Vol] 7.6 10*3/uL 4.4-11.0 [facility] Determination of erythrocyte mean corpuscular volume (MCV)Ordered By: Angélica Palomo on 02-15-2024 MCV (RBC) [Entitic vol] 97.3 fL 80-94 [facility] Determination of erythrocyte mean corpuscular volume (MCV)Ordered By: Pepe Au on 02-15-2024 MCV (RBC) [Entitic vol] 96.7 fL 80-94 [facility] Erythrocyte distribution wid th ratioOrdered By: Angélica Palomo on 02-15-2024 Erythrocyte distribution width (RBC) [Ratio] 14.0 % 11.6-14.6 [facility] Erythrocyte distribution wid th ratioOrdered By: Pepe Au on 02-15-2024 Erythrocyte distribution width (RBC) [Ratio] 14.1 % 11.6-14.6 [facility] Erythrocyte distribution wid th standard deviationOrdered By: Angélica Palomo on 02-15-2024 Erythrocyte distribution width (RBC) [Entitic vol] 50.0 fL 35.1-43.9 [facility] Erythrocyte distribution wid th standard deviationOrdered By: Pepe Au on 02-15-2024 Erythrocyte distribution width (RBC) [Entitic vol] 50.3 fL 35.1-43.9 [facility] Hematocrit Auto (Bld) [Volum e fraction]Ordered By: Angélica Palomo on 02-15-2024 Hematocrit (Bld) [Volume fraction] 40.3 % 40-54 [facility] Hematocrit Auto (Bld) [Volum e fraction]Ordered By: Pepe Au on 02-15-2024 Hematocrit (Bld) [Volume fraction] 40.8 % 40-54 [facility] Immature granulocytes/100 WB C Auto (Bld)Ordered By: Angélica Palomo on 02-15-2024 Immature granulocytes/100 WBC (Bld) 0.400 % 0.0-0.9 [facility] Comment on above: IG% - Immature Granu locytes (promyelocytes, myelocytes and metamyelocytes) > 1% indicates that a LEFT SHIFT is Present. Immature granulocytes/100 WB C Auto (Bld)Ordered By: Pepe Au on 02-15-2024 Immature granulocytes/100 WBC (Bld) 0.300 % 0.0-0.9 [facility] Comment on above: IG% - Immature Granu locytes (promyelocytes, myelocytes and metamyelocytes) > 1% indicates that a LEFT SHIFT is Present. Iron measurement (mass/mass) Ordered By: Pepe Au on 02-15-2024 Iron (Unsp spec) [Mass/Mass] 31 ug/dL 65-175 [facility] Laboratory - Chemistry and C hemistry - challengeOrdered By: Angélica Palomo on 02-15-2024 Albumin/Globulin [Mass ratio] 0.8 {ratio} 0.9-2.4 [facility] ALP [Catalytic activity/Vol] 123 U/L 45-117 [facility] ALT [Catalytic activity/Vol] 12 U/L 16-61 [facility] Globulin (S) [Mass/Vol] 4.4 g/dL 2.2-4.2 [facility] Lipase [Catalytic activity/Vol] 20 U/L 13-75 [facility] Comment on above: Please note:LIPASE r evised reference range effective 23. New Lipase methodology. Expected to produce lower values than the previous assay method. NEW Reference Range: 13 - 75 U/L Urea nitrogen/Creatinine [Mass ratio] 19.1 mg/mg 09-16 [facility] Laboratory - Chemistry and C hemistry - challengeOrdered By: Pepe Au on 02-15-2024 CO2 [Moles/Vol] 19.0 mmol/L 21.0-32.0 [facility] Ferritin [Mass/Vol] 141 ng/mL 26-388 [facility] Urea nitrogen/Creatinine [Mass ratio] 20.6 mg/mg 09-16 [facility] Laboratory - Hematology and Cell countsOrdered By: Angélica Palomo on 02-15-2024 MCH (RBC) [Entitic mass] 31.2 pg 27.0-32.0 [facility] MCHC (RBC) [Mass/Vol] 32.0 g/dL 32-36 [facility] Platelet mean volume (Bld) [Entitic vol] 10.7 fL 6.2-12.0 [facility] Platelets (Bld) [#/Vol] 111 10*3/uL 150-450 [facility] Laboratory - Hematology and Cell countsOrdered By: Pepe Au on 02-15-2024 Nucleated RBC/100 WBC (Bld) [Ratio] 0 % 0-5 [facility] MCH (RBC) [Entitic mass] 30.6 pg 27.0-32.0 [facility] MCHC (RBC) [Mass/Vol] 31.6 g/dL 32-36 [facility] Platelet mean volume (Bld) [Entitic vol] 10.0 fL 6.2-12.0 [facility] Platelets (Bld) [#/Vol] 118 10*3/uL 150-450 [facility] No Panel InformationOrdered By: Angélica Palomo on 02-15-2024 Estimated Creatinine Clearance Calc 25.89 ml/min [facility] Estimated GFR (MDRD) Amer 33 mL/min >60 [facility] Comment on above: GFR Calc Estimated GFR (MDRD) Non-Af Amer 27 mL/min >60 [facility] Comment on above: Non- GFR Calc No Panel InformationOrdered By: Pepe Au on 02-15-2024 Estimated GFR (MDRD) Amer 32 mL/min >60 [facility] Comment on above: GFR Calc Estimated GFR (MDRD) Non-Af Amer 26 mL/min >60 [facility] Comment on above: Non- GFR Calc Total Iron Binding Capacity 264 ug/dL 250-450 [facility] RBC Auto (Bld) [#/Vol]Ordere d By: Angélica Palomo on 02-15-2024 RBC (Bld) [#/Vol] 4.14 10*6/uL 4.6-6.2 [facility] RBC Auto (Bld) [#/Vol]Ordere d By: Pepe Au on 02-15-2024 RBC (Bld) [#/Vol] 4.22 10*6/uL 4.6-6.2 [facility] Serum or plasma calcium aubree urement (mass/volume)Ordered By: Angélica Palomo on 02-15-2024 Calcium [Mass/Vol] 9.5 mg/dL 8.5-10.1 [facility] Serum or plasma calcium aubree urement (mass/volume)Ordered By: Pepe Au on 02-15-2024 Calcium [Mass/Vol] 9.4 mg/dL 8.5-10.1 [facility] Serum or plasma creatinine m easurement (mass/volume)Ordered By: Angélica Palomo on 02-15-2024 Creatinine [Mass/Vol] 2.46 mg/dL 0.70-1.30 [facility] Comment on above: The validity of the calculated GFR & GFRAA in patients over 70 years has not been determined. Clinical correlation is essential. Serum or plasma creatinine m easurement (mass/volume)Ordered By: Pepe Au on 02-15-2024 Creatinine [Mass/Vol] 2.53 mg/dL 0.70-1.30 [facility] Comment on above: The validity of the calculated GFR & GFRAA in patients over 70 years has not been determined. Clinical correlation is essential. Serum or plasma iron saturat ion measurement (mass fraction)Ordered By: Pepe Au on 02-15-2024 Iron saturation [Mass fraction] 11.7 % 15.0-55.0 [facility] Serum or plasma urea nitroge n measurement (mass/volume)Ordered By: Angélica Palomo on 02-15-2024 Urea nitrogen [Mass/Vol] 47 mg/dL 06-14 [facility] Serum or plasma urea nitroge n measurement (mass/volume)Ordered By: Pepe Au on 02-15-2024 Urea nitrogen [Mass/Vol] 52 mg/dL 06-14 [facility] Thin prep Papanicolaou smear with manual screeningOrdered By: Angélica Palomo on 02-15-2024 Thin prep Papanicolaou smear with manual screening 3.3 g/dL 3.2-5.0 [facility] Thin prep Papanicolaou smear with manual screening 18 U/L 15-37 [facility] Thin prep Papanicolaou smear with manual screening 7 5-15 [facility] Thin prep Papanicolaou smear with manual screeningOrdered By: Pepe Au on 02-15-2024 Thin prep Papanicolaou smear with manual screening 3.7 g/dL 3.2-5.0 [facility] Absolute lymphocyte countOrd ered By: Pepe Au on 01-18-2024 Lymphocytes Auto (Unsp spec) [#/Vol] 1.86 10*3/uL 0.83-4.51 [facility] Automated lymphocyte count a s percentage of total leukocytesOrdered By: Pepe Au on 01-18-2024 Lymphocytes/100 WBC Auto (Unsp spec) 25.9 % 19-41 [facility] Basophil percentageOrdered B y: Pepe Au on 01-18-2024 Basophil percentage 3.0 mg/dL 2.5-4.9 [facility] Basophils/100 WBC (Bld) 0.6 % 0-1 [facility] Chloride [Moles/Vol] 111 mmol/L 98-107 [facility] Eosinophils/100 WBC (Bld) 4.0 % 0-5 [facility] Glucose [Mass/Vol] 160 mg/dL 74-106 [facility] Comment on above: Fasting Glucose resu lt greater than or equal to 126 mg/dL suggests DIABETES MELLITUS per A.D.A. criteria. Hemoglobin (Bld) [Mass/Vol] 11.7 g/dL 13.0-16.5 [facility] Monocytes/100 WBC (Bld) 7.3 % 0-10 [facility] Neutrophils (Bld) [#/Vol] 4.4 10*3/uL 2.0-7.7 [facility] Neutrophils/100 WBC (Bld) 61.9 % 47-70 [facility] Potassium [Moles/Vol] 4.7 mmol/L 3.5-5.1 [facility] Sodium [Moles/Vol] 139 mmol/L 136-145 [facility] WBC (Bld) [#/Vol] 7.2 10*3/uL 4.4-11.0 [facility] Determination of erythrocyte mean corpuscular volume (MCV)Ordered By: [facility] on 01-18-2024 MCV (RBC) [Entitic vol] 97.4 fL 80-94 [facility] Erythrocyte distribution wid th ratioOrdered By: [facility] Angely on 01-18-2024 Erythrocyte distribution width (RBC) [Ratio] 13.7 % 11.6-14.6 [facility] Erythrocyte distribution wid th standard deviationOrdered By: [facility] on 01-18-2024 Erythrocyte distribution width (RBC) [Entitic vol] 48.4 fL 35.1-43.9 [facility] Hematocrit Auto (Bld) [Volum e fraction]Ordered By: Pepe Au on 01-18-2024 Hematocrit (Bld) [Volume fraction] 37.2 % 40-54 [facility] Immature granulocytes/100 WB C Auto (Bld)Ordered By: Pepe Au on 01-18-2024 Immature granulocytes/100 WBC (Bld) 0.300 % 0.0-0.9 [facility] Comment on above: IG% - Immature Granu locytes (promyelocytes, myelocytes and metamyelocytes) > 1% indicates that a LEFT SHIFT is Present. Iron measurement (mass/mass) Ordered By: Pepe Au on 01-18-2024 Iron (Unsp spec) [Mass/Mass] 54 ug/dL 65-175 [facility] Laboratory - Chemistry and C hemistry - challengeOrdered By: Peep Au on 01-18-2024 CO2 [Moles/Vol] 26.0 mmol/L 21.0-32.0 [facility] Ferritin [Mass/Vol] 103 ng/mL 26-388 [facility] Urea nitrogen/Creatinine [Mass ratio] 18.2 mg/mg 10-20 [facility] Laboratory - Hematology and Cell countsOrdered By: Pepe Au on 01-18-2024 MCH (RBC) [Entitic mass] 30.6 pg 27.0-32.0 [facility] MCHC (RBC) [Mass/Vol] 31.5 g/dL 32-36 [facility] Nucleated RBC/100 WBC (Bld) [Ratio] 0 % 0-5 [facility] Platelet mean volume (Bld) [Entitic vol] 10.2 fL 6.2-12.0 [facility] Platelets (Bld) [#/Vol] 131 10*3/uL 150-450 [facility] No Panel InformationOrdered By: Pepe Au on 01-18-2024 Estimated GFR (MDRD) Amer 33 mL/min >60 [facility] Comment on above: GFR Calc Estimated GFR (MDRD) Non-Af Amer 27 mL/min >60 [facility] Comment on above: Non- GFR Calc Parathyroid Hormone (Intact) 20.1 pg/mL 18.4-80.1 [facility] Total Iron Binding Capacity 273 ug/dL 250-450 [facility] RBC Auto (Bld) [#/Vol]Ordere d By: Pepe Au on 01-18-2024 RBC (Bld) [#/Vol] 3.82 10*6/uL 4.6-6.2 [facility] Serum or plasma calcium aubree urement (mass/volume)Ordered By: Pepe Au on 01-18-2024 Calcium [Mass/Vol] 9.8 mg/dL 8.5-10.1 [facility] Serum or plasma creatinine m easurement (mass/volume)Ordered By: Pepe Au on 01-18-2024 Creatinine [Mass/Vol] 2.42 mg/dL 0.70-1.30 [facility] Comment on above: The validity of the calculated GFR & GFRAA in patients over 70 years has not been determined. Clinical correlation is essential. Serum or plasma iron saturat ion measurement (mass fraction)Ordered By: Pepe Au on 01-18-2024 Iron saturation [Mass fraction] 19.8 % 15.0-55.0 [facility] Serum or plasma urea nitroge n measurement (mass/volume)Ordered By: Pepe Au on 01-18-2024 Urea nitrogen [Mass/Vol] 44 mg/dL 7-18 [facility] Thin prep Papanicolaou smear with manual screeningOrdered By: Pepe Au on 01-18-2024 Thin prep Papanicolaou smear with manual screening 3.2 g/dL 3.2-5.0 [facility] Absolute lymphocyte countOrd ered By: Pepe Au on 12-21-2023 Lymphocytes Auto (Unsp spec) [#/Vol] 2.33 10*3/uL 0.83-4.51 [facility] Automated lymphocyte count a s percentage of total leukocytesOrdered By: Pepe Au on 12-21-2023 Lymphocytes/100 WBC Auto (Unsp spec) 36.6 % 19-41 [facility] Basophil percentageOrdered B y: Pepe Au on 12-21-2023 Basophil percentage 3.7 mg/dL 2.5-4.9 [facility] Basophils/100 WBC (Bld) 0.3 % 0-1 [facility] Chloride [Moles/Vol] 110 mmol/L 98-107 [facility] Eosinophils/100 WBC (Bld) 2.0 % 0-5 [facility] Glucose [Mass/Vol] 89 mg/dL 74-106 [facility] Hemoglobin (Bld) [Mass/Vol] 11.0 g/dL 13.0-16.5 [facility] Monocytes/100 WBC (Bld) 6.1 % 0-10 [facility] Neutrophils (Bld) [#/Vol] 3.5 10*3/uL 2.0-7.7 [facility] Neutrophils/100 WBC (Bld) 54.8 % 47-70 [facility] Potassium [Moles/Vol] 4.4 mmol/L 3.5-5.1 [facility] Sodium [Moles/Vol] 137 mmol/L 136-145 [facility] WBC (Bld) [#/Vol] 6.4 10*3/uL 4.4-11.0 [facility] Determination of erythrocyte mean corpuscular volume (MCV)Ordered By: Pepe Au on 12-21-2023 MCV (RBC) [Entitic vol] 98.1 fL 80-94 [facility] Erythrocyte distribution wid th ratioOrdered By: Pepe Au on 12-21-2023 Erythrocyte distribution width (RBC) [Ratio] 14.6 % 11.6-14.6 [facility] Erythrocyte distribution wid th standard deviationOrdered By: Pepe Au on 12-21-2023 Erythrocyte distribution width (RBC) [Entitic vol] 52.2 fL 35.1-43.9 [facility] Hematocrit Auto (Bld) [Volum e fraction]Ordered By: Pepe Au on 12-21-2023 Hematocrit (Bld) [Volume fraction] 35.8 % 40-54 [facility] Immature granulocytes/100 WB C Auto (Bld)Ordered By: Pepe Au on 12-21-2023 Immature granulocytes/100 WBC (Bld) 0.200 % 0.0-0.9 [facility] Comment on above: IG% - Immature Granu locytes (promyelocytes, myelocytes and metamyelocytes) > 1% indicates that a LEFT SHIFT is Present. Iron measurement (mass/mass) Ordered By: Pepe Au on 12-21-2023 Iron (Unsp spec) [Mass/Mass] 70 ug/dL 65-175 [facility] Laboratory - Chemistry and C hemistry - challengeOrdered By: Pepe Au on 12-21-2023 CO2 [Moles/Vol] 24.0 mmol/L 21.0-32.0 [facility] Ferritin [Mass/Vol] 125 ng/mL 26-388 [facility] Urea nitrogen/Creatinine [Mass ratio] 18.7 mg/mg 10-20 [facility] Laboratory - Hematology and Cell countsOrdered By: Pepe uA on 12-21-2023 MCH (RBC) [Entitic mass] 30.1 pg 27.0-32.0 [facility] MCHC (RBC) [Mass/Vol] 30.7 g/dL 32-36 [facility] Nucleated RBC/100 WBC (Bld) [Ratio] 0 % 0-5 [facility] Platelets (Bld) [#/Vol] 122 10*3/uL 150-450 [facility] No Panel InformationOrdered By: Pepe Au on 12-21-2023 Estimated GFR (MDRD) Amer 31 mL/min >60 [facility] Comment on above: GFR Calc Estimated GFR (MDRD) Non-Af Amer 26 mL/min >60 [facility] Comment on above: Non- GFR Calc Total Iron Binding Capacity 251 ug/dL 250-450 [facility] Platelet mean volume Evan-Ec ker (Bld) [Entitic vol]Ordered By: Pepe Au on 12-21-2023 Platelet mean volume (Bld) [Entitic vol] 10.3 fL 6.2-12.0 [facility] [facility] RBC Auto (Bld) [#/Vol]Ordere d By: Pepe Au on 12-21-2023 RBC (Bld) [#/Vol] 3.65 10*6/uL 4.6-6.2 [facility] Serum or plasma calcium aubree urement (mass/volume)Ordered By: Pepe Au on 12-21-2023 Calcium [Mass/Vol] 9.8 mg/dL 8.5-10.1 [facility] Serum or plasma creatinine m easurement (mass/volume)Ordered By: Pepe Au on 12-21-2023 Creatinine [Mass/Vol] 2.57 mg/dL 0.70-1.30 [facility] Comment on above: The validity of the calculated GFR & GFRAA in patients over 70 years has not been determined. Clinical correlation is essential. Serum or plasma iron saturat ion measurement (mass fraction)Ordered By: [facility] Au on 12-21-2023 Iron saturation [Mass fraction] 27.9 % 15.0-55.0 [facility] Serum or plasma urea nitroge n measurement (mass/volume)Ordered By: [facility] Au on 12-21-2023 Urea nitrogen [Mass/Vol] 48 mg/dL 7-18 [facility] Thin prep Papanicolaou smear with manual screeningOrdered By: [facility] Au on 12-21-2023 Thin prep Papanicolaou smear with manual screening 3.1 g/dL 3.2-5.0 [facility] Absolute lymphocyte countOrd ered By: [facility] Au on 12-02-2023 Lymphocytes Auto (Unsp spec) [#/Vol] 1.49 10*3/uL 0.83-4.51 [facility] Basophil percentageOrdered B y: Pepe Au on 12-02-2023 Basophil percentage 3.3 mg/dL 2.5-4.9 [facility] Basophils/100 WBC (Bld) 0.3 % 0-1 [facility] Chloride [Moles/Vol] 111 mmol/L 98-107 [facility] Eosinophils/100 WBC (Bld) 0.9 % 0-5 [facility] Glucose [Mass/Vol] 131 mg/dL 74-106 [facility] Comment on above: Fasting Glucose resu lt greater than or equal to 126 mg/dL suggests DIABETES MELLITUS per A.D.A. criteria. Neutrophils (Bld) [#/Vol] 6.6 10*3/uL 2.0-7.7 [facility] Neutrophils/100 WBC (Bld) 75.9 % 47-70 [facility] Potassium [Moles/Vol] 4.7 mmol/L 3.5-5.1 [facility] Sodium [Moles/Vol] 142 mmol/L 136-145 [facility] WBC (Bld) [#/Vol] 8.7 10*3/uL 4.4-11.0 [facility] Blood erythrocytes count (nu mber/volume)Ordered By: Pepe Au on 12-02-2023 RBC (Bld) [#/Vol] 3.48 10*6/uL 4.6-6.2 [facility] Blood hemoglobin measurement (mass/volume)Ordered By: Pepe Au on 12-02-2023 Hemoglobin (Bld) [Mass/Vol] 10.9 g/dL 13.0-16.5 [facility] Blood lymphocytes/100 leukoc ytesOrdered By: Pepe Au on 12-02-2023 Lymphocytes/100 WBC (Bld) 17.1 % 19-41 [facility] Blood monocytes/100 leukocyt esOrdered By: Pepe Au on 12-02-2023 Monocytes/100 WBC (Bld) 5.5 % 0-10 [facility] Blood platelet mean volumeOr dered By: Pepe Au on 12-02-2023 Platelet mean volume (Bld) [Entitic vol] 10.8 fL 6.2-12.0 [facility] Determination of erythrocyte mean corpuscular volume (MCV)Ordered By: Pepe Au on 12-02-2023 MCV (RBC) [Entitic vol] 101.1 fL 80-94 [facility] Hematocrit Auto (Bld) [Volum e fraction]Ordered By: Pepe Au on 12-02-2023 Hematocrit (Bld) [Volume fraction] 35.2 % 40-54 [facility] Iron measurement (mass/mass) Ordered By: Pepe Au on 12-02-2023 Iron (Unsp spec) [Mass/Mass] 70 ug/dL 65-175 [facility] Laboratory - Chemistry and C hemistry - challengeOrdered By: Pepe Au on 12-02-2023 CO2 [Moles/Vol] 26.0 mmol/L 21.0-32.0 [facility] Urea nitrogen/Creatinine [Mass ratio] 17.5 mg/mg 10-20 [facility] Laboratory - Hematology and Cell countsOrdered By: Pepe Au on 12-02-2023 Erythrocyte distribution width (RBC) [Entitic vol] 58.1 fL 35.1-43.9 [facility] Erythrocyte distribution width (RBC) [Ratio] 15.8 % 11.6-14.6 [facility] Immature granulocytes/100 WBC (Bld) 0.300 % 0.0-0.9 [facility] Comment on above: IG% - Immature Granu locytes (promyelocytes, myelocytes and metamyelocytes) > 1% indicates that a LEFT SHIFT is Present. MCH (RBC) [Entitic mass] 31.3 pg 27.0-32.0 [facility] Nucleated RBC/100 WBC (Bld) [Ratio] 0 % 0-5 [facility] MCHC Auto (RBC) [Mass/Vol]Or dered By: Pepe Au on 12-02-2023 MCHC (RBC) [Mass/Vol] 31.0 g/dL 32-36 [facility] No Panel InformationOrdered By: Pepe Au on 12-02-2023 Estimated GFR (MDRD) Amer 33 mL/min >60 [facility] Comment on above: GFR Calc Estimated GFR (MDRD) Non-Af Amer 27 mL/min >60 [facility] Comment on above: Non- GFR Calc Parathyroid Hormone (Intact) 26.3 pg/mL 18.4-80.1 [facility] Total Iron Binding Capacity 233 ug/dL 250-450 [facility] Platelets bldOrdered By: Zandra Au on 12-02-2023 Platelets (Bld) [#/Vol] 162 10*3/uL 150-450 [facility] Serum or plasma albumin aubree urement (mass/volume)Ordered By: Pepe Au on 12-02-2023 Albumin [Mass/Vol] 3.1 g/dL 3.2-5.0 [facility] Serum or plasma calcium aubree urement (mass/volume)Ordered By: Pepe Au on 12-02-2023 Calcium [Mass/Vol] 9.0 mg/dL 8.5-10.1 [facility] Serum or plasma creatinine m easurement (mass/volume)Ordered By: Pepe Au on 12-02-2023 Creatinine [Mass/Vol] 2.46 mg/dL 0.70-1.30 [facility] Comment on above: The validity of the calculated GFR & GFRAA in patients over 70 years has not been determined. Clinical correlation is essential. Serum or plasma ferritin laurie surement (mass/volume)Ordered By: Pepe Au on 12-02-2023 Ferritin [Mass/Vol] 118 ng/mL 26-388 [facility] Serum or plasma urea nitroge n measurement (mass/volume)Ordered By: [facility] Au on 12-02-2023 Urea nitrogen [Mass/Vol] 43 mg/dL 7-18 [facility] Serum or plasma uric acid me asurement (mass/volume)Ordered By: Pepe Au on 12-02-2023 Urate [Mass/Vol] 5.5 mg/dL 3.5-7.2 [facility] Comment on above: The drugs N-Acetylcy steine and Metamizole may falsely depress this assay. Absolute lymphocyte countOrd ered By: Pepe Au on 11-23-2023 Lymphocytes Auto (Unsp spec) [#/Vol] 1.50 10*3/uL 0.83-4.51 [facility] Basophil percentageOrdered B y: Pepe Au on 11-23-2023 Basophil percentage 195 mg/dL 74-106 [facility] Basophil percentage 3.1 mg/dL 2.5-4.9 [facility] Basophil percentage 139 mmol/L 136-145 [facility] Basophil percentage 4.4 mmol/L 3.5-5.1 [facility] Basophil percentage 110 mmol/L 98-107 [facility] Basophils (Bld) [#/Vol] 7.4 10*3/uL 4.4-11.0 [facility] Basophils (Bld) [#/Vol] 5.1 10*3/uL 2.0-7.7 [facility] Basophils/100 WBC (Bld) 68.1 % 47-70 [facility] Basophils/100 WBC (Bld) 4.0 % 0-5 [facility] Basophils/100 WBC (Bld) 0.5 % 0-1 [facility] Chloride [Moles/Vol] 110 mmol/L 98-107 [facility] Eosinophils/100 WBC (Bld) 4.0 % 0-5 [facility] Glucose [Mass/Vol] 195 mg/dL 74-106 [facility] Comment on above: Fasting Glucose resu lt greater than or equal to 126 mg/dL suggests DIABETES MELLITUS per A.D.A. criteria. Neutrophils (Bld) [#/Vol] 5.1 10*3/uL 2.0-7.7 [facility] Neutrophils/100 WBC (Bld) 68.1 % 47-70 [facility] Potassium [Moles/Vol] 4.4 mmol/L 3.5-5.1 [facility] Sodium [Moles/Vol] 139 mmol/L 136-145 [facility] WBC (Bld) [#/Vol] 7.4 10*3/uL 4.4-11.0 [facility] Blood erythrocytes count (nu mber/volume)Ordered By: Pepe Au on 11-23-2023 RBC (Bld) [#/Vol] 3.23 10*6/uL 4.6-6.2 [facility] Blood hemoglobin measurement (mass/volume)Ordered By: Pepe Au on 11-23-2023 Hemoglobin (Bld) [Mass/Vol] 10.2 g/dL 13.0-16.5 [facility] Blood lymphocytes/100 leukoc ytesOrdered By: Pepe Au on 11-23-2023 Lymphocytes/100 WBC (Bld) 20.2 % 19-41 [facility] Blood monocytes/100 leukocyt esOrdered By: Pepe Au on 11-23-2023 Monocytes/100 WBC (Bld) 6.7 % 0-10 [facility] Blood platelet mean volumeOr dered By: Pepe Au on 11-23-2023 Platelet mean volume (Bld) [Entitic vol] 10.2 fL 6.2-12.0 [facility] Determination of erythrocyte mean corpuscular volume (MCV)Ordered By: Pepe Au on 11-23-2023 MCV (RBC) [Entitic vol] 98.5 fL 80-94 [facility] Hematocrit Auto (Bld) [Volum e fraction]Ordered By: Pepe Au on 11-23-2023 Hematocrit (Bld) [Volume fraction] 31.8 % 40-54 [facility] Iron measurement (mass/mass) Ordered By: Pepe Au on 11-23-2023 Iron (Unsp spec) [Mass/Mass] 57 ug/dL 65-175 [facility] Laboratory - Chemistry and C hemistry - challengeOrdered By: Pepe Au on 11-23-2023 CO2 [Moles/Vol] 26.0 mmol/L 21.0-32.0 [facility] Urea nitrogen/Creatinine [Mass ratio] 26.6 mg/mg 10-20 [facility] Laboratory - Hematology and Cell countsOrdered By: Pepe Au on 11-23-2023 Erythrocyte distribution width (RBC) [Entitic vol] 55.5 fL 35.1-43.9 [facility] Erythrocyte distribution width (RBC) [Ratio] 15.7 % 11.6-14.6 [facility] Immature granulocytes/100 WBC (Bld) 0.500 % 0.0-0.9 [facility] Comment on above: IG% - Immature Granu locytes (promyelocytes, myelocytes and metamyelocytes) > 1% indicates that a LEFT SHIFT is Present. MCH (RBC) [Entitic mass] 31.6 pg 27.0-32.0 [facility] Nucleated RBC/100 WBC (Bld) [Ratio] 0 % 0-5 [facility] MCHC Auto (RBC) [Mass/Vol]Or dered By: Pepe Au on 11-23-2023 MCHC (RBC) [Mass/Vol] 32.1 g/dL 32-36 [facility] No Panel InformationOrdered By: Pepe Au on 11-23-2023 Estimated GFR (MDRD) Amer 33 mL/min >60 [facility] Comment on above: GFR Calc Estimated GFR (MDRD) Non-Af Amer 27 mL/min >60 [facility] Comment on above: Non- GFR Calc Total Iron Binding Capacity 223 ug/dL 250-450 [facility] 31.6 pg 27.0-32.0 [facility] 15.7 % 11.6-14.6 [facility] 55.5 fl 35.1-43.9 [facility] 0.500 % 0.0-0.9 [facility] 0 % 0-5 [facility] 27 mL/min >60 [facility] 33 mL/min >60 [facility] 26.6 RATIO 10-20 [facility] 26.0 mmol/L 21.0-32.0 [facility] 223 ug/dL 250-450 [facility] Platelets bldOrdered By: Zandra Au on 11-23-2023 Platelets (Bld) [#/Vol] 134 10*3/uL 150-450 [facility] Serum or plasma albumin aubree urement (mass/volume)Ordered By: Pepe Au on 11-23-2023 Albumin [Mass/Vol] 2.9 g/dL 3.2-5.0 [facility] Serum or plasma calcium aubree urement (mass/volume)Ordered By: Pepe Au on 11-23-2023 Calcium [Mass/Vol] 9.8 mg/dL 8.5-10.1 [facility] Serum or plasma creatinine m easurement (mass/volume)Ordered By: Pepe Au on 11-23-2023 Creatinine [Mass/Vol] 2.44 mg/dL 0.70-1.30 [facility] Comment on above: The validity of the calculated GFR & GFRAA in patients over 70 years has not been determined. Clinical correlation is essential. Serum or plasma ferritin laurie surement (mass/volume)Ordered By: Pepe Au on 11-23-2023 Ferritin [Mass/Vol] 208 ng/mL 26-388 [facility] Serum or plasma iron saturat ion measurement (mass fraction)Ordered By: Pepe Au on 11-23-2023 Iron saturation [Mass fraction] 25.6 % 15.0-55.0 [facility] Serum or plasma urea nitroge n measurement (mass/volume)Ordered By: Pepe Au on 11-23-2023 Urea nitrogen [Mass/Vol] 65 mg/dL 7-18 [facility] Absolute lymphocyte countOrd ered By: Dayjack Au on 10-26-2023 Lymphocytes Auto (Unsp spec) [#/Vol] 1.33 10*3/uL 0.83-4.51 [facility] Basophil percentageOrdered B y: Pepe Au on 10-26-2023 Basophil percentage 176 mg/dL 74-106 [facility] Basophil percentage 2.9 mg/dL 2.5-4.9 [facility] Basophil percentage 141 mmol/L 136-145 [facility] Basophil percentage 4.5 mmol/L 3.5-5.1 [facility] Basophil percentage 109 mmol/L 98-107 [facility] Basophils (Bld) [#/Vol] 5.9 10*3/uL 4.4-11.0 [facility] Basophils (Bld) [#/Vol] 3.7 10*3/uL 2.0-7.7 [facility] Basophils/100 WBC (Bld) 62.8 % 47-70 [facility] Basophils/100 WBC (Bld) 4.8 % 0-5 [facility] Basophils/100 WBC (Bld) 0.7 % 0-1 [facility] Chloride [Moles/Vol] 109 mmol/L 98-107 [facility] Eosinophils/100 WBC (Bld) 4.8 % 0-5 [facility] Glucose [Mass/Vol] 176 mg/dL 74-106 [facility] Comment on above: Fasting Glucose resu lt greater than or equal to 126 mg/dL suggests DIABETES MELLITUS per A.D.A. criteria. Neutrophils (Bld) [#/Vol] 3.7 10*3/uL 2.0-7.7 [facility] Neutrophils/100 WBC (Bld) 62.8 % 47-70 [facility] Potassium [Moles/Vol] 4.5 mmol/L 3.5-5.1 [facility] Sodium [Moles/Vol] 141 mmol/L 136-145 [facility] WBC (Bld) [#/Vol] 5.9 10*3/uL 4.4-11.0 [facility] Blood erythrocytes count (nu mber/volume)Ordered By: Pepe Alexronaldo on 10-26-2023 RBC (Bld) [#/Vol] 3.85 10*6/uL 4.6-6.2 [facility] Blood hemoglobin measurement (mass/volume)Ordered By: Pepe Au on 10-26-2023 Hemoglobin (Bld) [Mass/Vol] 11.8 g/dL 13.0-16.5 [facility] Blood lymphocytes/100 leukoc ytesOrdered By: Pepe Au on 10-26-2023 Lymphocytes/100 WBC (Bld) 22.7 % 19-41 [facility] Blood monocytes/100 leukocyt esOrdered By: Pepe Au on 10-26-2023 Monocytes/100 WBC (Bld) 8.7 % 0-10 [facility] Blood platelet mean volumeOr dered By: Pepe Au on 10-26-2023 Platelet mean volume (Bld) [Entitic vol] 10.3 fL 6.2-12.0 [facility] Determination of erythrocyte mean corpuscular volume (MCV)Ordered By: Pepe Au on 10-26-2023 MCV (RBC) [Entitic vol] 98.4 fL 80-94 [facility] Hematocrit Auto (Bld) [Volum e fraction]Ordered By: Pepe Au on 10-26-2023 Hematocrit (Bld) [Volume fraction] 37.9 % 40-54 [facility] Iron measurement (mass/mass) Ordered By: Pepe Au on 10-26-2023 Iron (Unsp spec) [Mass/Mass] 41 ug/dL 65-175 [facility] Laboratory - Chemistry and C hemistry - challengeOrdered By: Pepe Au on 10-26-2023 CO2 [Moles/Vol] 24.0 mmol/L 21.0-32.0 [facility] Urea nitrogen/Creatinine [Mass ratio] 23.1 mg/mg 10-20 [facility] Laboratory - Hematology and Cell countsOrdered By: Pepe Au on 10-26-2023 Erythrocyte distribution width (RBC) [Entitic vol] 51.5 fL 35.1-43.9 [facility] Erythrocyte distribution width (RBC) [Ratio] 14.3 % 11.6-14.6 [facility] Immature granulocytes/100 WBC (Bld) 0.300 % 0.0-0.9 [facility] Comment on above: IG% - Immature Granu locytes (promyelocytes, myelocytes and metamyelocytes) > 1% indicates that a LEFT SHIFT is Present. MCH (RBC) [Entitic mass] 30.6 pg 27.0-32.0 [facility] Nucleated RBC/100 WBC (Bld) [Ratio] 0 % 0-5 [facility] MCHC Auto (RBC) [Mass/Vol]Or dered By: Pepe Au on 10-26-2023 MCHC (RBC) [Mass/Vol] 31.1 g/dL 32-36 [facility] No Panel InformationOrdered By: Pepe Au on 10-26-2023 Estimated GFR (MDRD) Amer 34 mL/min >60 [facility] Comment on above: GFR Calc Estimated GFR (MDRD) Non-Af Amer 28 mL/min >60 [facility] Comment on above: Non- GFR Calc Total Iron Binding Capacity 243 ug/dL 250-450 [facility] 30.6 pg 27.0-32.0 [facility] 14.3 % 11.6-14.6 [facility] 51.5 fl 35.1-43.9 [facility] 0.300 % 0.0-0.9 [facility] 0 % 0-5 [facility] 28 mL/min >60 [facility] 34 mL/min >60 [facility] 23.1 RATIO 10-20 [facility] 24.0 mmol/L 21.0-32.0 [facility] 243 ug/dL 250-450 [facility] Platelets bldOrdered By: Zandra Au on 10-26-2023 Platelets (Bld) [#/Vol] 162 10*3/uL 150-450 [facility] Serum or plasma albumin aubree urement (mass/volume)Ordered By: Pepe Au on 10-26-2023 Albumin [Mass/Vol] 3.2 g/dL 3.2-5.0 [facility] Serum or plasma calcium aubree urement (mass/volume)Ordered By: Pepe Au on 10-26-2023 Calcium [Mass/Vol] 9.3 mg/dL 8.5-10.1 [facility] Serum or plasma creatinine m easurement (mass/volume)Ordered By: Pepe Au on 10-26-2023 Creatinine [Mass/Vol] 2.38 mg/dL 0.70-1.30 [facility] Comment on above: The validity of the calculated GFR & GFRAA in patients over 70 years has not been determined. Clinical correlation is essential. Serum or plasma ferritin laurie surement (mass/volume)Ordered By: Pepe Au on 10-26-2023 Ferritin [Mass/Vol] 177 ng/mL 26-388 [facility] Serum or plasma iron saturat ion measurement (mass fraction)Ordered By: [facility] on 10-[facility]-2023 Iron saturation [Mass fraction] 16.9 % 15.0-55.0 [facility] Serum or plasma urea nitroge n measurement (mass/volume)Ordered By: [facility] Au on 10-26-2023 Urea nitrogen [Mass/Vol] 55 mg/dL 7-18 [facility] Absolute lymphocyte countOrd ered By: Pepe Au on 09-28-2023 Lymphocytes Auto (Unsp spec) [#/Vol] 1.28 10*3/uL 0.83-4.51 [facility] Basophil percentageOrdered B y: Pepe Au on 09-28-2023 Basophil percentage 113 mg/dL 74-106 [facility] Basophil percentage 3.5 mg/dL 2.5-4.9 [facility] Basophil percentage 141 mmol/L 136-145 [facility] Basophil percentage 4.7 mmol/L 3.5-5.1 [facility] Basophil percentage 110 mmol/L 98-107 [facility] Basophils (Bld) [#/Vol] 7.2 10*3/uL 4.4-11.0 [facility] Basophils (Bld) [#/Vol] 5.3 10*3/uL 2.0-7.7 [facility] Basophils/100 WBC (Bld) 73.9 % 47-70 [facility] Basophils/100 WBC (Bld) 2.1 % 0-5 [facility] Basophils/100 WBC (Bld) 0.4 % 0-1 [facility] Chloride [Moles/Vol] 110 mmol/L 98-107 [facility] Eosinophils/100 WBC (Bld) 2.1 % 0-5 [facility] Glucose [Mass/Vol] 113 mg/dL 74-106 [facility] Comment on above: Fasting Glucose resu lt from 100 to 125 mg/dL suggests IMPAIRED HOMEOSTASIS per A.D.A. criteria. Neutrophils (Bld) [#/Vol] 5.3 10*3/uL 2.0-7.7 [facility] Neutrophils/100 WBC (Bld) 73.9 % 47-70 [facility] Potassium [Moles/Vol] 4.7 mmol/L 3.5-5.1 [facility] Sodium [Moles/Vol] 141 mmol/L 136-145 [facility] WBC (Bld) [#/Vol] 7.2 10*3/uL 4.4-11.0 [facility] Blood erythrocytes count (nu mber/volume)Ordered By: Pepe Au on 09-28-2023 RBC (Bld) [#/Vol] 3.28 10*6/uL 4.6-6.2 [facility] Blood hemoglobin measurement (mass/volume)Ordered By: Pepe Au on 09-28-2023 Hemoglobin (Bld) [Mass/Vol] 10.2 g/dL 13.0-16.5 [facility] Blood lymphocytes/100 leukoc ytesOrdered By: Pepe Au on 09-28-2023 Lymphocytes/100 WBC (Bld) 17.9 % 19-41 [facility] Blood monocytes/100 leukocyt esOrdered By: Pepe Au on 09-28-2023 Monocytes/100 WBC (Bld) 5.4 % 0-10 [facility] Blood platelet mean volumeOr dered By: Pepe Au on 09-28-2023 Platelet mean volume (Bld) [Entitic vol] 10.7 fL 6.2-12.0 [facility] Determination of erythrocyte mean corpuscular volume (MCV)Ordered By: Pepe Au on 09-28-2023 MCV (RBC) [Entitic vol] 100.9 fL 80-94 [facility] Hematocrit Auto (Bld) [Volum e fraction]Ordered By: Pepe Au on 09-28-2023 Hematocrit (Bld) [Volume fraction] 33.1 % 40-54 [facility] Iron measurement (mass/mass) Ordered By: Pepe Au on 09-28-2023 Iron (Unsp spec) [Mass/Mass] 49 ug/dL 65-175 [facility] Laboratory - Chemistry and C hemistry - challengeOrdered By: Pepe Au on 09-28-2023 CO2 [Moles/Vol] 27.0 mmol/L 21.0-32.0 [facility] Urea nitrogen/Creatinine [Mass ratio] 24.4 mg/mg 10-20 [facility] Laboratory - Hematology and Cell countsOrdered By: Pepe Au on 09-28-2023 Erythrocyte distribution width (RBC) [Entitic vol] 55.8 fL 35.1-43.9 [facility] Erythrocyte distribution width (RBC) [Ratio] 15.2 % 11.6-14.6 [facility] Immature granulocytes/100 WBC (Bld) 0.300 % 0.0-0.9 [facility] Comment on above: IG% - Immature Granu locytes (promyelocytes, myelocytes and metamyelocytes) > 1% indicates that a LEFT SHIFT is Present. MCH (RBC) [Entitic mass] 31.1 pg 27.0-32.0 [facility] Nucleated RBC/100 WBC (Bld) [Ratio] 0 % 0-5 [facility] MCHC Auto (RBC) [Mass/Vol]Or dered By: Pepe Au on 09-28-2023 MCHC (RBC) [Mass/Vol] 30.8 g/dL 32-36 [facility] No Panel InformationOrdered By: Pepe Au on 09-28-2023 Estimated GFR (MDRD) Amer 35 mL/min >60 [facility] Comment on above: GFR Calc Estimated GFR (MDRD) Non-Af Amer 29 mL/min >60 [facility] Comment on above: Non- GFR Calc Parathyroid Hormone (Intact) 33.4 pg/mL 18.4-80.1 [facility] Total Iron Binding Capacity 257 ug/dL 250-450 [facility] 31.1 pg 27.0-32.0 [facility] 15.2 % 11.6-14.6 [facility] 55.8 fl 35.1-43.9 [facility] 0.300 % 0.0-0.9 [facility] 0 % 0-5 [facility] 29 mL/min >60 [facility] 35 mL/min >60 [facility] 24.4 RATIO 10-20 [facility] 27.0 mmol/L 21.0-32.0 [facility] 257 ug/dL 250-450 [facility] 33.4 pg/mL 18.4-80.1 [facility] Platelets bldOrdered By: Zandra Au on 09-28-2023 Platelets (Bld) [#/Vol] 147 10*3/uL 150-450 [facility] Serum or plasma albumin aubree urement (mass/volume)Ordered By: Pepe Au on 09-28-2023 Albumin [Mass/Vol] 3.1 g/dL 3.2-5.0 [facility] Serum or plasma calcium aurbee urement (mass/volume)Ordered By: Pepe Au on 09-28-2023 Calcium [Mass/Vol] 9.3 mg/dL 8.5-10.1 [facility] Serum or plasma creatinine m easurement (mass/volume)Ordered By: Pepe Au on 09-28-2023 Creatinine [Mass/Vol] 2.34 mg/dL 0.70-1.30 [facility] Comment on above: The validity of the calculated GFR & GFRAA in patients over 70 years has not been determined. Clinical correlation is essential. Serum or plasma ferritin laurie surement (mass/volume)Ordered By: Pepe Au on 09-28-2023 Ferritin [Mass/Vol] 175 ng/mL 26-388 [facility] Serum or plasma iron saturat ion measurement (mass fraction)Ordered By: Pepe Au on 09-28-2023 Iron saturation [Mass fraction] 19.1 % 15.0-55.0 [facility] Serum or plasma urea nitroge n measurement (mass/volume)Ordered By: Pepe uA on 09-28-2023 Urea nitrogen [Mass/Vol] 57 mg/dL 7-18 [facility] Absolute lymphocyte countOrd ered By: Eladio Lucas on 09-22-2023 Lymphocytes Auto (Unsp spec) [#/Vol] 1.44 10*3/uL 0.83-4.51 [facility] Basophil percentageOrdered B y: Eladio Lucas on 09-22-2023 Basophil percentage 129 mg/dL 74-106 [facility] Basophil percentage 137 mmol/L 136-145 [facility] Basophil percentage 4.4 mmol/L 3.5-5.1 [facility] Basophil percentage 105 mmol/L 98-107 [facility] Basophils (Bld) [#/Vol] 7.7 10*3/uL 4.4-11.0 [facility] Basophils (Bld) [#/Vol] 5.3 10*3/uL 2.0-7.7 [facility] Basophils/100 WBC (Bld) 68.7 % 47-70 [facility] Basophils/100 WBC (Bld) 3.7 % 0-5 [facility] Basophils/100 WBC (Bld) 0.4 % 0-1 [facility] Chloride [Moles/Vol] 105 mmol/L 98-107 [facility] Eosinophils/100 WBC (Bld) 3.7 % 0-5 [facility] Glucose [Mass/Vol] 129 mg/dL 74-106 [facility] Comment on above: Fasting Glucose resu lt greater than or equal to 126 mg/dL suggests DIABETES MELLITUS per A.D.A. criteria. Neutrophils (Bld) [#/Vol] 5.3 10*3/uL 2.0-7.7 [facility] Neutrophils/100 WBC (Bld) 68.7 % 47-70 [facility] Potassium [Moles/Vol] 4.4 mmol/L 3.5-5.1 [facility] Sodium [Moles/Vol] 137 mmol/L 136-145 [facility] WBC (Bld) [#/Vol] 7.7 10*3/uL 4.4-11.0 [facility] Blood erythrocytes count (nu mber/volume)Ordered By: Eladio Lucas on 09-22-2023 RBC (Bld) [#/Vol] 3.03 10*6/uL 4.6-6.2 [facility] Blood hemoglobin measurement (mass/volume)Ordered By: Eladio Lucas on 09-22-2023 Hemoglobin (Bld) [Mass/Vol] 9.5 g/dL 13.0-16.5 [facility] Blood lymphocytes/100 leukoc ytesOrdered By: Eladio Lucas on 09-22-2023 Lymphocytes/100 WBC (Bld) 18.8 % 19-41 [facility] Blood monocytes/100 leukocyt esOrdered By: Eladio Lucas on 09-22-2023 Monocytes/100 WBC (Bld) 8.1 % 0-10 [facility] Blood platelet mean volumeOr dered By: Eladio Lucas on 09-22-2023 Platelet mean volume (Bld) [Entitic vol] 11.5 fL 6.2-12.0 [facility] Determination of erythrocyte mean corpuscular volume (MCV)Ordered By: Eladio Lucas on 09-22-2023 MCV (RBC) [Entitic vol] 100.0 fL 80-94 [facility] Glucose Glucometer (dC) [M ass/Vol]Ordered By: Eladio Lucas on 09-22-2023 Glucose [Mass/Vol] 182 mg/dL 74-106 [facility] Comment on above: MANAGEMENT OF PATIEN T CARE PER NURSING PROTOCOL Glucose [Mass/Vol] 197 mg/dL 74-106 [facility] Hematocrit Auto (Bld) [Volum e fraction]Ordered By: Eladio Lucas on 09-22-2023 Hematocrit (Bld) [Volume fraction] 30.3 % 40-54 [facility] Laboratory - Chemistry and C hemistry - challengeOrdered By: Eladio Lucas on 09-22-2023 CO2 [Moles/Vol] 27.0 mmol/L 21.0-32.0 [facility] Urea nitrogen/Creatinine [Mass ratio] 26.5 mg/mg 10-20 [facility] Laboratory - Hematology and Cell countsOrdered By: Eladio Lucas on 09-22-2023 Erythrocyte distribution width (RBC) [Entitic vol] 57.0 fL 35.1-43.9 [facility] Erythrocyte distribution width (RBC) [Ratio] 15.6 % 11.6-14.6 [facility] Immature granulocytes/100 WBC (Bld) 0.300 % 0.0-0.9 [facility] Comment on above: IG% - Immature Granu locytes (promyelocytes, myelocytes and metamyelocytes) > 1% indicates that a LEFT SHIFT is Present. MCH (RBC) [Entitic mass] 31.4 pg 27.0-32.0 [facility] Nucleated RBC/100 WBC (Bld) [Ratio] 0 % 0-5 [facility] MCHC Auto (RBC) [Mass/Vol]Or dered By: Eladio Lucas on 09-22-2023 MCHC (RBC) [Mass/Vol] 31.4 g/dL 32-36 [facility] No Panel InformationOrdered By: Eladio Lucas on 09-22-2023 Estimated Creatinine Clearance Calc 18.02 ml/min [facility] Estimated GFR (MDRD) Amer 29 mL/min >60 [facility] Comment on above: GFR Calc Estimated GFR (MDRD) Non-Af Amer 24 mL/min >60 [facility] Comment on above: Non- GFR Calc 31.4 pg 27.0-32.0 [facility] 15.6 % 11.6-14.6 [facility] 57.0 fl 35.1-43.9 [facility] 0.300 % 0.0-0.9 [facility] 0 % 0-5 [facility] 24 mL/min >60 [facility] 29 mL/min >60 [facility] 18.02 ml/min [facility] 26.5 RATIO 10-20 [facility] 27.0 mmol/L 21.0-32.0 [facility] Platelets bldOrdered By: Kirby Lucas on 09-22-2023 Platelets (Bld) [#/Vol] 132 10*3/uL 150-450 [facility] Serum or plasma calcium aubree urement (mass/volume)Ordered By: Eladio Lucas on 09-22-2023 Calcium [Mass/Vol] 9.0 mg/dL 8.5-10.1 [facility] Serum or plasma creatinine m easurement (mass/volume)Ordered By: Eladio Lucas on 09-22-2023 Creatinine [Mass/Vol] 2.75 mg/dL 0.70-1.30 [facility] Comment on above: The validity of the calculated GFR & GFRAA in patients over 70 years has not been determined. Clinical correlation is essential. Serum or plasma urea nitroge n measurement (mass/volume)Ordered By: Eladio Lucas on 09-22-2023 Urea nitrogen [Mass/Vol] 73 mg/dL 7-18 [facility] Thin prep Papanicolaou smear with manual screeningOrdered By: Eladio Lucas on 09-22-2023 Thin prep Papanicolaou smear with manual screening 5 5-15 [facility] Basophil percentageOrdered B y: Patricia Alcantara on 09-17-2023 Basophil percentage 7.1 g/dL 6.4-8.2 [facility] Basophil percentage 0.70 mg/dL 0.20-1.00 [facility] Bilirubin [Mass/Vol] 0.70 mg/dL 0.20-1.00 [facility] Comment on above: For patients on eltr ombopag therapy, use of Dimension Latty TBIL is not recommended. Protein [Mass/Vol] 7.1 g/dL 6.4-8.2 [facility] Laboratory - Chemistry and C hemistry - challengeOrdered By: Patricia Alcantara on 09-17-2023 ALP [Catalytic activity/Vol] 173 U/L [facility] ALT [Catalytic activity/Vol] 17 U/L [facility] Globulin (S) [Mass/Vol] 4.3 g/dL 2.2-4.2 [facility] No Panel InformationOrdered By: Patricia Alcantara on 09-17-2023 4.3 g/dL 2.2-4.2 [facility] 173 U/L [facility] 17 U/L [facility] Serum or plasma albumin aubree urement (mass/volume)Ordered By: Patricia Alcantara on 09-17-2023 Albumin [Mass/Vol] 2.8 g/dL 3.2-5.0 [facility] Serum or plasma albumin/glob ulin mass ratioOrdered By: Patricia White on 09-17-2023 Albumin/Globulin [Mass ratio] 0.7 {ratio} 0.9-2.4 [facility] Thin prep Papanicolaou smear with manual screeningOrdered By: Patricia White on 09-17-2023 Thin prep Papanicolaou smear with manual screening 13 U/L 15-37 [facility] Absolute lymphocyte countOrd ered By: Cesar Medina on 09-16-2023 Lymphocytes Auto (Unsp spec) [#/Vol] 1.34 10*3/uL 0.83-4.51 [facility] Basophil percentageOrdered B y: Cesar Medina on 09-16-2023 Basophil percentage 131 mg/dL 74-106 [facility] Basophil percentage 141 mmol/L 136-145 [facility] Basophil percentage 4.8 mmol/L 3.5-5.1 [facility] Basophil percentage 112 mmol/L 98-107 [facility] Basophils (Bld) [#/Vol] 7.1 10*3/uL 4.4-11.0 [facility] Basophils (Bld) [#/Vol] 4.8 10*3/uL 2.0-7.7 [facility] Basophils/100 WBC (Bld) 68.1 % 47-70 [facility] Basophils/100 WBC (Bld) 3.7 % 0-5 [facility] Basophils/100 WBC (Bld) 0.4 % 0-1 [facility] Blood erythrocytes count (nu mber/volume)Ordered By: Cesar Medina on 09-16-2023 RBC (Bld) [#/Vol] 3.16 10*6/uL 4.6-6.2 [facility] Blood hemoglobin measurement (mass/volume)Ordered By: Cesar Medina on 09-16-2023 Hemoglobin (Bld) [Mass/Vol] 10.1 g/dL 13.0-16.5 [facility] Blood lymphocytes/100 leukoc ytesOrdered By: Cesar Medina on 09-16-2023 Lymphocytes/100 WBC (Bld) 19.0 % 19-41 [facility] Blood monocytes/100 leukocyt esOrdered By: Cesar Medina on 09-16-2023 Monocytes/100 WBC (Bld) 8.1 % 0-10 [facility] Blood platelet mean volumeOr dered By: Cesar Medina on 09-16-2023 Platelet mean volume (Bld) [Entitic vol] 11.2 fL 6.2-12.0 [facility] Determination of erythrocyte mean corpuscular volume (MCV)Ordered By: Cesar Medina on 09-16-2023 MCV (RBC) [Entitic vol] 101.9 fL 80-94 [facility] Hematocrit Auto (Bld) [Volum e fraction]Ordered By: Cesar Medina on 09-16-2023 Hematocrit (Bld) [Volume fraction] 32.2 % 40-54 [facility] Laboratory - Chemistry and C hemistry - challengeOrdered By: Patricia Alcantara on 09-16-2023 Magnesium [Mass/Vol] 2.0 mg/dL 1.6-2.6 [facility] Laboratory - Chemistry and C hemistry - challengeOrdered By: Cesar Medina on 09-16-2023 Natriuretic peptide B (Bld) [Mass/Vol] 179.0 pg/mL 0-100 [facility] Laboratory - Microbiology an d Antimicrobial susceptibilityOrdered By: Patricia Alcantara on 09-16-2023 SARS-CoV-2 (COVID-19) RNA ELIANE+probe Ql (Unsp spec) [facility] MCHC Auto (RBC) [Mass/Vol]Or dered By: Cesar Medina on 09-16-2023 MCHC (RBC) [Mass/Vol] 31.4 g/dL 32-36 [facility] No Panel InformationOrdered By: Patricia Alcantara on 09-16-2023 Troponin I High Sensitivity 45 pg/mL 3.0-78.0 [facility] Comment on above: Please Note: New Meghana t Units and Gender Specific Reference Ranges. For more information see Policy Stat Procedure Latty High Sensitivity Troponin (TNIH) and attachments. 45 pg/mL 3.0-78.0 [facility] 2.0 mg/dL 1.6-2.6 [facility] No Panel InformationOrdered By: Cesar Medina on 09-16-2023 46 pg/mL 3.0-78.0 [facility] 32.0 pg 27.0-32.0 [facility] 16.4 % 11.6-14.6 [facility] 60.7 fl 35.1-43.9 [facility] 0.700 % 0.0-0.9 [facility] 0 % 0-5 [facility] 32 mL/min >60 [facility] 39 mL/min >60 [facility] 23.37 ml/min [facility] 25.0 RATIO 10-20 [facility] 22.0 mmol/L 21.0-32.0 [facility] 179.0 pg/mL 0-100 [facility] Platelets bldOrdered By: Jodie Medina on 09-16-2023 Platelets (Bld) [#/Vol] 130 10*3/uL 150-450 [facility] Respiratory pathogens detect ion panel by molecular detection methodOrdered By: Patricia Alcantara on 09-16-2023 Respiratory pathogens DNA and RNA panel ELIANE+probe (Resp) [facility] Serum or plasma calcium aubree urement (mass/volume)Ordered By: Cesar Medina on 09-16-2023 Calcium [Mass/Vol] 8.8 mg/dL 8.5-10.1 [facility] Serum or plasma creatinine m easurement (mass/volume)Ordered By: Cesar Medina on 09-16-2023 Creatinine [Mass/Vol] 2.12 mg/dL 0.70-1.30 [facility] Serum or plasma urea nitroge n measurement (mass/volume)Ordered By: Cesar Medina on 09-16-2023 Urea nitrogen [Mass/Vol] 53 mg/dL 7-18 [facility] Serum procalcitonin measurem entOrdered By: Patricia Alcantara on 09-16-2023 Procalcitonin [Mass/Vol] 0.08 ng/mL 0.00-0.09 [facility] Comment on above: A procalcitonin (PCT [...] Papanicolaou smear with manual screening 7 5-15 [facility] Absolute lymphocyte countOrd ered By: James Camarillo on 08-22-2023 Lymphocytes Auto (Unsp spec) [#/Vol] 1.57 10*3/uL 0.83-4.51 [facility] Basophil percentageOrdered B y: James Camarillo on 08-22-2023 Basophil percentage 131 mg/dL 74-106 [facility] Basophil percentage 139 mmol/L 136-145 [facility] Basophil percentage 4.7 mmol/L 3.5-5.1 [facility] Basophil percentage 112 mmol/L 98-107 [facility] Basophils (Bld) [#/Vol] 9.5 10*3/uL 4.4-11.0 [facility] Basophils (Bld) [#/Vol] 7.2 10*3/uL 2.0-7.7 [facility] Basophils/100 WBC (Bld) 75.8 % 47-70 [facility] Basophils/100 WBC (Bld) 1.4 % 0-5 [facility] Basophils/100 WBC (Bld) 0.4 % 0-1 [facility] Blood erythrocytes count (nu mber/volume)Ordered By: James Camarillo on 08-22-2023 RBC (Bld) [#/Vol] 3.28 10*6/uL 4.6-6.2 [facility] Blood hemoglobin measurement (mass/volume)Ordered By: James Camarillo on 08-22-2023 Hemoglobin (Bld) [Mass/Vol] 10.2 g/dL 13.0-16.5 [facility] Blood lymphocytes/100 leukoc ytesOrdered By: James Camarillo on 08-22-2023 Lymphocytes/100 WBC (Bld) 16.5 % 19-41 [facility] Blood monocytes/100 leukocyt esOrdered By: James Camarillo on 08-22-2023 Monocytes/100 WBC (Bld) 5.6 % 0-10 [facility] Blood platelet mean volumeOr dered By: James Camarillo on 08-22-2023 Platelet mean volume (Bld) [Entitic vol] 10.8 fL 6.2-12.0 [facility] COVID-19 virus antigen assay Ordered By: Mikey Macias on 08-22-2023 SARS-CoV-2 (COVID-19) Ag IA.rapid Ql (Resp) [facility] SARS-CoV-2 (COVID-19) Ag IA.rapid Ql (Resp) [facility] Determination of erythrocyte mean corpuscular volume (MCV)Ordered By: James Camarillo on 08-22-2023 MCV (RBC) [Entitic vol] 98.2 fL 80-94 [facility] Glucose Glucometer (BldC) [M ass/Vol]Ordered By: Mikey Macias on 08-22-2023 Glucose [Mass/Vol] 170 mg/dL 74-106 [facility] Hematocrit Auto (Bld) [Volum e fraction]Ordered By: James Camarillo on 08-22-2023 Hematocrit (Bld) [Volume fraction] 32.2 % 40-54 [facility] MCHC Auto (RBC) [Mass/Vol]Or dered By: James Camarillo on 08-22-2023 MCHC (RBC) [Mass/Vol] 31.7 g/dL 32-36 [facility] No Panel InformationOrdered By: James Camarillo on 08-22-2023 31.1 pg 27.0-32.0 [facility] 14.2 % 11.6-14.6 [facility] 51.4 fl 35.1-43.9 [facility] 0.300 % 0.0-0.9 [facility] 0 % 0-5 [facility] 26 mL/min >60 [facility] 32 mL/min >60 [facility] 19.74 ml/min [facility] 18.3 RATIO 10-20 [facility] 21.0 mmol/L 21.0-32.0 [facility] Platelets bldOrdered By: Juan Camarillo on 08-22-2023 Platelets (Bld) [#/Vol] 137 10*3/uL 150-450 [facility] Serum or plasma calcium aubree urement (mass/volume)Ordered By: James Camarillo on 08-22-2023 Calcium [Mass/Vol] 8.7 mg/dL 8.5-10.1 [facility] Serum or plasma creatinine m easurement (mass/volume)Ordered By: James Camarillo on 08-22-2023 Creatinine [Mass/Vol] 2.51 mg/dL 0.70-1.30 [facility] Serum or plasma urea nitroge n measurement (mass/volume)Ordered By: James Camarillo on 08-22-2023 Urea nitrogen [Mass/Vol] 46 mg/dL 7-18 [facility] Thin prep Papanicolaou smear with manual screeningOrdered By: James Camarillo on 08-22-2023 Thin prep Papanicolaou smear with manual screening 6 5-15 [facility] Basophil percentageOrdered B y: James Camarillo on 08-21-2023 Basophil percentage 2.6 mg/dL 2.5-4.9 [facility] No Panel InformationOrdered By: James Camarillo on 08-21-2023 1.9 mg/dL 1.6-2.6 [facility] No Panel InformationOrdered By: James Camarillo on 08-20-2023 96.3 Seconds 24.1-36.2 [facility] Basophil percentageOrdered B y: Patricia Alcantara on 08-19-2023 Basophil percentage 6.9 g/dL 6.4-8.2 [facility] Basophil percentage 0.50 mg/dL 0.20-1.00 [facility] No Panel InformationOrdered By: Patricia Alcantara on 08-19-2023 4.5 g/dL 2.2-4.2 [facility] 110 U/L 45-117 [facility] 15 U/L 16-61 [facility] 5.80 uIU/mL 0.358-3.74 [facility] Serum or plasma albumin aubree urement (mass/volume)Ordered By: Patricia Alcantara on 09-22-2023 Albumin [Mass/Vol] 2.4 g/dL 3.2-5.0 [facility] Serum or plasma albumin/glob ulin mass ratioOrdered By: Patricia Alcantara on 08-19-2023 Albumin/Globulin [Mass ratio] 0.5 {ratio} 0.9-2.4 [facility] Thin prep Papanicolaou smear with manual screeningOrdered By: Patricia Alcantara on 08-19-2023 Thin prep Papanicolaou smear with manual screening 17 U/L 15-37 [facility] Absolute lymphocyte countOrd ered By: Farhan Cammie on 08-18-2023 Lymphocytes Auto (Unsp spec) [#/Vol] 1.58 10*3/uL 0.83-4.51 [facility] Absolute lymphocyte countOrd ered By: Jeremy Magallanes on 08-18-2023 Lymphocytes Auto (Unsp spec) [#/Vol] 1.56 10*3/uL 0.83-4.51 [facility] Basophil percentageOrdered B y: Patricia Alcantara on 08-18-2023 Ammonia (P) [Moles/Vol] 14.0 umol/L 11-32 [facility] Basophil percentage 14.0 umol/L 11-32 [facility] Basophil percentageOrdered B y: Farhan Bonds on 08-18-2023 Basophil percentage 151 mg/dL 74-106 [facility] Basophil percentage 139 mmol/L 136-145 [facility] Basophil percentage 4.5 mmol/L 3.5-5.1 [facility] Basophil percentage 107 mmol/L 98-107 [facility] Basophils (Bld) [#/Vol] 9.0 10*3/uL 4.4-11.0 [facility] Basophils (Bld) [#/Vol] 6.6 10*3/uL 2.0-7.7 [facility] Basophils/100 WBC (Bld) 73.4 % 47-70 [facility] Basophils/100 WBC (Bld) 1.8 % 0-5 [facility] Basophils/100 WBC (Bld) 0.4 % 0-1 [facility] Chloride [Moles/Vol] 107 mmol/L 98-107 [facility] Eosinophils/100 WBC (Bld) 1.8 % 0-5 [facility] Glucose [Mass/Vol] 151 mg/dL 74-106 [facility] Comment on above: Fasting Glucose resu lt greater than or equal to 126 mg/dL suggests DIABETES MELLITUS per A.D.A. criteria. Neutrophils (Bld) [#/Vol] 6.6 10*3/uL 2.0-7.7 [facility] Neutrophils/100 WBC (Bld) 73.4 % 47-70 [facility] Potassium [Moles/Vol] 4.5 mmol/L 3.5-5.1 [facility] Sodium [Moles/Vol] 139 mmol/L 136-145 [facility] WBC (Bld) [#/Vol] 9.0 10*3/uL 4.4-11.0 [facility] Basophil percentageOrdered B y: Jeremy Magallanes on 08-18-2023 Basophil percentage 144 mg/dL 74-106 [facility] Basophil percentage 7.1 g/dL 6.4-8.2 [facility] Basophil percentage 0.70 mg/dL 0.20-1.00 [facility] Basophil percentage 139 mmol/L 136-145 [facility] Basophil percentage 4.2 mmol/L 3.5-5.1 [facility] Basophil percentage 106 mmol/L 98-107 [facility] Basophils (Bld) [#/Vol] 9.1 10*3/uL 4.4-11.0 [facility] Basophils (Bld) [#/Vol] 6.8 10*3/uL 2.0-7.7 [facility] Basophils/100 WBC (Bld) 74.4 % 47-70 [facility] Basophils/100 WBC (Bld) 1.9 % 0-5 [facility] Basophils/100 WBC (Bld) 0.4 % 0-1 [facility] Bilirubin [Mass/Vol] 0.70 mg/dL 0.20-1.00 [facility] Comment on above: For patients on eltr ombopag therapy, use of Dimension Latty TBIL is not recommended. Chloride [Moles/Vol] 106 mmol/L 98-107 [facility] Eosinophils/100 WBC (Bld) 1.9 % 0-5 [facility] Glucose [Mass/Vol] 144 mg/dL 74-106 [facility] Comment on above: Fasting Glucose resu lt greater than or equal to 126 mg/dL suggests DIABETES MELLITUS per A.D.A. criteria. Neutrophils (Bld) [#/Vol] 6.8 10*3/uL 2.0-7.7 [facility] Neutrophils/100 WBC (Bld) 74.4 % 47-70 [facility] Potassium [Moles/Vol] 4.2 mmol/L 3.5-5.1 [facility] Protein [Mass/Vol] 7.1 g/dL 6.4-8.2 [facility] Sodium [Moles/Vol] 139 mmol/L 136-145 [facility] WBC (Bld) [#/Vol] 9.1 10*3/uL 4.4-11.0 [facility] Blood erythrocytes count (nu mber/volume)Ordered By: Farhan Bonds on 08-18-2023 RBC (Bld) [#/Vol] 3.47 10*6/uL 4.6-6.2 [facility] Blood erythrocytes count (nu mber/volume)Ordered By: Jeremy Magallanes on 08-18-2023 RBC (Bld) [#/Vol] 3.42 10*6/uL 4.6-6.2 [facility] Blood hemoglobin measurement (mass/volume)Ordered By: Farhan Bonds on 08-18-2023 Hemoglobin (Bld) [Mass/Vol] 10.8 g/dL 13.0-16.5 [facility] Blood hemoglobin measurement (mass/volume)Ordered By: Jeremy Magallanes on 08-18-2023 Hemoglobin (Bld) [Mass/Vol] 10.9 g/dL 13.0-16.5 [facility] Blood lymphocytes/100 leukoc ytesOrdered By: Farhan Bonds on 08-18-2023 Lymphocytes/100 WBC (Bld) 17.6 % - [facility] Blood lymphocytes/100 leukoc ytesOrdered By: Jeremy Magallanes on 08-18-2023 Lymphocytes/100 WBC (Bld) 17.1 % - [facility] Blood monocytes/100 leukocyt esOrdered By: Farhan Bonds on 08-18-2023 Monocytes/100 WBC (Bld) 6.4 % 0-10 [facility] Blood monocytes/100 leukocyt esOrdered By: Jeremy Magallanes on 08-18-2023 Monocytes/100 WBC (Bld) 5.9 % 0-10 [facility] Blood platelet mean volumeOr dered By: Farhan Bonds on 08-18-2023 Platelet mean volume (Bld) [Entitic vol] 11.3 fL 6.2-12.0 [facility] Blood platelet mean volumeOr dered By: Jeremy Magallanes on 08-18-2023 Platelet mean volume (Bld) [Entitic vol] 10.5 fL 6.2-12.0 [facility] Determination of erythrocyte mean corpuscular volume (MCV)Ordered By: Farhan Bonds on 08-18-2023 MCV (RBC) [Entitic vol] 98.8 fL 80-94 [facility] Determination of erythrocyte mean corpuscular volume (MCV)Ordered By: Jeremy Magallanes on 08-18-2023 MCV (RBC) [Entitic vol] 98.0 fL 80-94 [facility] Glucose Glucometer (dC) [M ass/Vol]Ordered By: Jeremy Magallanes on 08-18-2023 Glucose [Mass/Vol] 147 mg/dL 74-106 [facility] Comment on above: MANAGEMENT OF PATIEN T CARE PER NURSING PROTOCOL HCO3 (BldA) [Moles/Vol]Order ed By: aPtricia Alcantara on 08-18-2023 HCO3 (Bld) [Moles/Vol] 26 mmol/L 22- [facility] Hematocrit Auto (Bld) [Volum e fraction]Ordered By: Farhan Bonds on 08-18-2023 Hematocrit (Bld) [Volume fraction] 34.3 % 40-54 [facility] Hematocrit Auto (Bld) [Volum e fraction]Ordered By: Jeremy Magallanes on 08-18-2023 Hematocrit (Bld) [Volume fraction] 33.5 % 40-54 [facility] INR in Blood by Coagulation assayOrdered By: Patricia Alcantara on 08-18-2023 INR Coag (Bld) [Relative time] 1.6 {INR} [facility] Laboratory - Chemistry and C hemistry - challengeOrdered By: Patricia Alcantara on 08-18-2023 Magnesium [Mass/Vol] 1.9 mg/dL 1.6-2.6 [facility] Laboratory - Chemistry and C hemistry - challengeOrdered By: Farhan Bonds on 08-18-2023 CO2 [Moles/Vol] 29.0 mmol/L 21.0-32.0 [facility] Urea nitrogen/Creatinine [Mass ratio] 19.7 mg/mg 10- [facility] Laboratory - Chemistry and C hemistry - challengeOrdered By: Jeremy Magallanes on 08-18-2023 ALP [Catalytic activity/Vol] 130 U/L 45-117 [facility] ALT [Catalytic activity/Vol] 18 U/L 16-61 [facility] CO2 [Moles/Vol] 27.0 mmol/L 21.0-32.0 [facility] Globulin (S) [Mass/Vol] 4.1 g/dL 2.2-4.2 [facility] Urea nitrogen/Creatinine [Mass ratio] 19.5 mg/mg 10- [facility] Laboratory - CoagulationOrde red By: Patricia Alcantara on 08-18-2023 aPTT Coag (Bld) [Time] 40.0 s 24.1-36.2 [facility] PT Coag (PPP) [Time] 18.9 s 11.7-14.9 [facility] - Hematology and Cell countsOrdered By: Farhan Bonds on 08-18-2023 Erythrocyte distribution width (RBC) [Entitic vol] 51.6 fL 35.1-43.9 [facility] Erythrocyte distribution width (RBC) [Ratio] 14.3 % 11.6-14.6 [facility] Immature granulocytes/100 WBC (Bld) 0.400 % 0.0-0.9 [facility] Comment on above: IG% - Immature Granu locytes (promyelocytes, myelocytes and metamyelocytes) > 1% indicates that a LEFT SHIFT is Present. MCH (RBC) [Entitic mass] 31.1 pg 27.0-32.0 [facility] Nucleated RBC/100 WBC (Bld) [Ratio] 0 % 0-5 [facility] Laboratory - Hematology and Cell countsOrdered By: Jeremy Magallanes on 08-18-2023 Erythrocyte distribution width (RBC) [Entitic vol] 50.4 fL 35.1-43.9 [facility] Erythrocyte distribution width (RBC) [Ratio] 14.0 % 11.6-14.6 [facility] Immature granulocytes/100 WBC (Bld) 0.300 % 0.0-0.9 [facility] Comment on above: IG% - Immature Granu locytes (promyelocytes, myelocytes and metamyelocytes) > 1% indicates that a LEFT SHIFT is Present. MCH (RBC) [Entitic mass] 31.9 pg 27.0-32.0 [facility] Nucleated RBC/100 WBC (Bld) [Ratio] 0 % 0-5 [facility] MCHC Auto (RBC) [Mass/Vol]Or dered By: Farhan Bonds on 08-18-2023 MCHC (RBC) [Mass/Vol] 31.5 g/dL 32-36 [facility] MCHC Auto (RBC) [Mass/Vol]Or dered By: Jeremy Magallanes on 08-18-2023 MCHC (RBC) [Mass/Vol] 32.5 g/dL 32-36 [facility] No Panel InformationOrdered By: Patricia Alcantara on 08-18-2023 AYE [facility] Not entered [facility] Cannula [facility] 4.0 [facility] 47.0 mmHg 41-51 [facility] 1 mmol/L -1.0-3.5 [facility] 52 % 50-70 [facility] 28 mmol/L 23-33 [facility] 18.9 SECONDS 11.7-14.9 [facility] 40.0 Seconds 24.1-36.2 [facility] 1.9 mg/dL 1.6-2.6 [facility] No Panel InformationOrdered By: Farhan Bonds on 08-18-2023 Estimated Creatinine Clearance Calc 22.22 ml/min [facility] Estimated GFR (MDRD) Amer 36 mL/min >60 [facility] Comment on above: GFR Calc Estimated GFR (MDRD) Non-Af Amer 30 mL/min >60 [facility] Comment on above: Non- GFR Calc Troponin I High Sensitivity 78 pg/mL 3.0-78.0 [facility] Comment on above: Please Note: New Meghana t Units and Gender Specific Reference Ranges. For more information see Policy Stat Procedure Latty High Sensitivity Troponin (TNIH) and attachments. 31.1 pg 27.0-32.0 [facility] 14.3 % 11.6-14.6 [facility] 51.6 fl 35.1-43.9 [facility] 0.400 % 0.0-0.9 [facility] 0 % 0-5 [facility] 30 mL/min >60 [facility] 36 mL/min >60 [facility] 22.22 ml/min [facility] 19.7 RATIO 10-20 [facility] 78 pg/mL 3.0-78.0 [facility] 29.0 mmol/L 21.0-32.0 [facility] No Panel InformationOrdered By: Jeremy Magallanes on 08-18-2023 Estimated Creatinine Clearance Calc 22.52 ml/min [facility] Estimated GFR (MDRD) Amer 37 mL/min >60 [facility] Comment on above: GFR Calc Estimated GFR (MDRD) Non-Af Amer 31 mL/min >60 [facility] Comment on above: Non- GFR Calc 31.9 pg 27.0-32.0 [facility] 14.0 % 11.6-14.6 [facility] 50.4 fl 35.1-43.9 [facility] 0.300 % 0.0-0.9 [facility] 0 % 0-5 [facility] 31 mL/min >60 [facility] 37 mL/min >60 [facility] 22.52 ml/min [facility] 19.5 RATIO 10-20 [facility] 4.1 g/dL 2.2-4.2 [facility] 130 U/L 45-117 [facility] 18 U/L 16-61 [facility] 27.0 mmol/L 21.0-32.0 [facility] PO2 venousOrdered By: Patricia Alcantara on 08-18-2023 Oxygen (BldV) [Partial pressure] 29 mm[Hg] 25-40 [facility] Platelets bldOrdered By: Mariusz Bonds on 08-18-2023 Platelets (Bld) [#/Vol] 153 10*3/uL 150-450 [facility] Platelets bldOrdered By: Jeremy Magallanes on 08-18-2023 Platelets (Bld) [#/Vol] 147 10*3/uL 150-450 [facility] Serum or plasma albumin aubree urement (mass/volume)Ordered By: Jeremy Magallanes on 08-18-2023 Albumin [Mass/Vol] 3.0 g/dL 3.2-5.0 [facility] Serum or plasma albumin/glob ulin mass ratioOrdered By: Jeremy Magallanes on 08-18-2023 Albumin/Globulin [Mass ratio] 0.7 {ratio} 0.9-2.4 [facility] Serum or plasma calcium aubree urement (mass/volume)Ordered By: Farhan Bonds on 08-18-2023 Calcium [Mass/Vol] 9.6 mg/dL 8.5-10.1 [facility] Serum or plasma calcium aubree urement (mass/volume)Ordered By: Jeremy Magallanes on 08-18-2023 Calcium [Mass/Vol] 9.4 mg/dL 8.5-10.1 [facility] Serum or plasma creatinine m easurement (mass/volume)Ordered By: Farhan Bonds on 08-18-2023 Creatinine [Mass/Vol] 2.23 mg/dL 0.70-1.30 [facility] Comment on above: The validity of the calculated GFR & GFRAA in patients over 70 years has not been determined. Clinical correlation is essential. Serum or plasma creatinine m easurement (mass/volume)Ordered By: Jeremy Magallanes on 08-18-2023 Creatinine [Mass/Vol] 2.20 mg/dL 0.70-1.30 [facility] Comment on above: The validity of the calculated GFR & GFRAA in patients over 70 years has not been determined. Clinical correlation is essential. Serum or plasma urea nitroge n measurement (mass/volume)Ordered By: Farhan Bonds on 08-18-2023 Urea nitrogen [Mass/Vol] 44 mg/dL 06-14 [facility] Serum or plasma urea nitroge n measurement (mass/volume)Ordered By: Jeremy Magallanes on 08-18-2023 Urea nitrogen [Mass/Vol] 43 mg/dL 06-14 [facility] Thin prep Papanicolaou smear with manual screeningOrdered By: Farhan Bonds on 08-18-2023 Thin prep Papanicolaou smear with manual screening 3 5-15 [facility] Thin prep Papanicolaou smear with manual screeningOrdered By: Jeremy Magallanes on 08-18-2023 Thin prep Papanicolaou smear with manual screening 18 U/L 15-37 [facility] Thin prep Papanicolaou smear with manual screening 6 5-15 [facility] pH measurementOrdered By: Dia Alcantara on 08-18-2023 pH (Unsp spec) 7.36 [pH] 7.32-7.42 [facility] COVID-19 virus antigen assay Ordered By: Jeremy Magallanes on 08-17-2023 SARS-CoV-2 (COVID-19) Ag IA.rapid Ql (Resp) [facility] SARS-CoV-2 (COVID-19) Ag IA.rapid Ql (Resp) [facility] Glucose Glucometer (BldC) [M ass/Vol]Ordered By: Jeremy Magallanes on 08-11-2023 Glucose [Mass/Vol] 105 mg/dL 74-106 [facility] Comment on above: MANAGEMENT OF PATIEN T CARE PER NURSING PROTOCOL Absolute lymphocyte countOrd ered By: Jeremy Magallanes on 08-10-2023 Lymphocytes Auto (Unsp spec) [#/Vol] 1.95 10*3/uL 0.83-4.51 [facility] Basophil percentageOrdered B y: Jeremy Magallanes on 08-10-2023 Basophils/100 WBC (Bld) 0.5 % 0-1 [facility] Chloride [Moles/Vol] 106 mmol[facility]L 98-[facility] Eosinophils/100 WBC (Bld) 2.2 % 0-5 [facility] Glucose [Mass/Vol] 188 mg/dL 74-106 [facility] Comment on above: Fasting Glucose resu lt greater than or equal to 126 mg/dL suggests DIABETES MELLITUS per A.D.A. criteria. Neutrophils (Bld) [#/Vol] 6.0 10*3/uL 2.0-7.7 [facility] Neutrophils/100 WBC (Bld) 69.3 % 47-70 [facility] Potassium [Moles/Vol] 4.1 mmol/L 3.5-5.1 [facility] Sodium [Moles/Vol] 138 mmol/L 136-145 [facility] WBC (Bld) [#/Vol] 8.7 10*3/uL 4.4-11.0 [facility] Blood erythrocytes count (nu mber/volume)Ordered By: Jeremy Magallanes on 08-10-2023 RBC (Bld) [#/Vol] 3.49 10*6/uL 4.6-6.2 [facility] Blood hemoglobin measurement (mass/volume)Ordered By: Jeremy Magallanes on 08-10-2023 Hemoglobin (Bld) [Mass/Vol] 10.9 g/dL 13.0-16.5 [facility] Blood lymphocytes/100 leukoc ytesOrdered By: Jeremy Magallanes on 08-10-2023 Lymphocytes/100 WBC (Bld) 22.5 % 19-41 [facility] Blood monocytes/100 leukocyt esOrdered By: Jeremy Magallanes on 08-10-2023 Monocytes/100 WBC (Bld) 5.2 % 0-10 [facility] Blood platelet mean volumeOr dered By: Jeremy Magallanes on 08-10-2023 Platelet mean volume (Bld) [Entitic vol] 10.6 fL 6.2-12.0 [facility] Determination of erythrocyte mean corpuscular volume (MCV)Ordered By: Jeremy Magallanes on 08-10-2023 MCV (RBC) [Entitic vol] 99.7 fL 80-94 [facility] Hematocrit Auto (Bld) [Volum e fraction]Ordered By: Jeremy Magallanes 08-10-2023 Hematocrit (Bld) [Volume fraction] 34.8 % 40-54 [facility] Laboratory - Chemistry and C hemistry - challengeOrdered By: Jeremy Magallanes 08-10-2023 CO2 [Moles/Vol] 26.0 mmol/L 21.0-32.0 [facility] Urea nitrogen/Creatinine [Mass ratio] 22.1 mg/mg 10-20 [facility] Laboratory - Hematology and Cell countsOrdered By: Jeremy Magallanes 08-10-2023 Erythrocyte distribution width (RBC) [Entitic vol] 51.8 fL 35.1-43.9 [facility] Erythrocyte distribution width (RBC) [Ratio] 14.4 % 11.6-14.6 [facility] Immature granulocytes/100 WBC (Bld) 0.300 % 0.0-0.9 [facility] Comment on above: IG% - Immature Granu locytes (promyelocytes, myelocytes and metamyelocytes) > 1% indicates that a LEFT SHIFT is Present. MCH (RBC) [Entitic mass] 31.2 pg 27.0-32.0 [facility] Nucleated RBC/100 WBC (Bld) [Ratio] 0 % 0-5 [facility] MCHC Auto (RBC) [Mass/Vol]Or dered By: Jeremy Magalalnes on 08-10-2023 MCHC (RBC) [Mass/Vol] 31.3 g/dL 32-36 [facility] No Panel InformationOrdered By: Jeremy Magallanes on 08-10-2023 Estimated Creatinine Clearance Calc 21.08 ml/min [facility] Estimated GFR (MDRD) Amer 34 mL/min >60 [facility] Comment on above: GFR Calc Estimated GFR (MDRD) Non-Af Amer 28 mL/min >60 [facility] Comment on above: Non- GFR Calc Platelets bldOrdered By: Jeremy Magallanes on 08-10-2023 Platelets (Bld) [#/Vol] 136 10*3/uL 150-450 [facility] Serum or plasma calcium aubree urement (mass/volume)Ordered By: Jeremy Magallanes on 08-10-2023 Calcium [Mass/Vol] 9.7 mg/dL 8.5-10.1 [facility] Serum or plasma creatinine m easurement (mass/volume)Ordered By: Jeremy Magallanes on 08-10-2023 Creatinine [Mass/Vol] 2.35 mg/dL 0.70-1.30 [facility] Comment on above: The validity of the calculated GFR & GFRAA in patients over 70 years has not been determined. Clinical correlation is essential. Serum or plasma urea nitroge n measurement (mass/volume)Ordered By: Jeremy Magallanes on 08-10-2023 Urea nitrogen [Mass/Vol] 52 mg/dL 7-18 [facility] Thin prep Papanicolaou smear with manual screeningOrdered By: Jeremy Magallanes 08-10-2023 Thin prep Papanicolaou smear with manual screening 6 5-15 [facility] COVID-19 virus antigen assay Ordered By: Jeremy Magallanes on 08-09-2023 SARS-CoV-2 (COVID-19) Ag IA.rapid Ql (Resp) [facility] Glucose Glucometer (BldC) [M ass/Vol]Ordered By: Jeremy Magallanes on 07-27-2023 Glucose [Mass/Vol] 83 mg/dL 74-106 [facility] Comment on above: MANAGEMENT OF PATIEN T CARE PER NURSING PROTOCOL Absolute lymphocyte countOrd ered By: Jeremy Magallanes on 07-25-2023 Lymphocytes Auto (Unsp spec) [#/Vol] 1.42 10*3/uL 0.83-4.51 [facility] Basophil percentageOrdered B y: Jeremy Magallanes on 07-25-2023 Basophils/100 WBC (Bld) 0.5 % 0-1 [facility] Chloride [Moles/Vol] 114 mmol/L 98-107 [facility] Eosinophils/100 WBC (Bld) 4.1 % 0-5 [facility] Glucose [Mass/Vol] 92 mg/dL 74-106 [facility] Neutrophils (Bld) [#/Vol] 5.4 10*3/uL 2.0-7.7 [facility] Neutrophils/100 WBC (Bld) 69.0 % 47-70 [facility] Potassium [Moles/Vol] 4.3 mmol/L 3.5-5.1 [facility] Sodium [Moles/Vol] 142 mmol/L 136-145 [facility] WBC (Bld) [#/Vol] 7.8 10*3/uL 4.4-11.0 [facility] Blood erythrocytes count (nu mber/volume)Ordered By: Jeremy Magallanes on 07-25-2023 RBC (Bld) [#/Vol] 2.97 10*6/uL 4.6-6.2 [facility] Blood hemoglobin measurement (mass/volume)Ordered By: Jeremy Magallanes on 07-25-2023 Hemoglobin (Bld) [Mass/Vol] 9.6 g/dL 13.0-16.5 [facility] Blood lymphocytes/100 leukoc ytesOrdered By: Jeremy Magallanes on 07-25-2023 Lymphocytes/100 WBC (Bld) 18.2 % 19-41 [facility] Blood monocytes/100 leukocyt esOrdered By: Jeremy Magallanes on 07-25-2023 Monocytes/100 WBC (Bld) 7.8 % 0-10 [facility] Blood platelet mean volumeOr dered By: Jeremy Magallanes on 07-25-2023 Platelet mean volume (Bld) [Entitic vol] 10.7 fL 6.2-12.0 [facility] Determination of erythrocyte mean corpuscular volume (MCV)Ordered By: Jeremy Magallanes on 07-25-2023 MCV (RBC) [Entitic vol] 99.0 fL 80-94 [facility] Hematocrit Auto (Bld) [Volum e fraction]Ordered By: Jeremy Magallanes on 07-25-2023 Hematocrit (Bld) [Volume fraction] 29.4 % 40-54 [facility] Laboratory - Chemistry and C hemistry - challengeOrdered By: Jeremy Magallanes on 07-25-2023 CO2 [Moles/Vol] 23.0 mmol/L 21.0-32.0 [facility] Urea nitrogen/Creatinine [Mass ratio] 27.4 mg/mg 10-20 [facility] Laboratory - Hematology and Cell countsOrdered By: Jeremy Magallanes 07-25-2023 Erythrocyte distribution width (RBC) [Entitic vol] 55.1 fL 35.1-43.9 [facility] Erythrocyte distribution width (RBC) [Ratio] 15.3 % 11.6-14.6 [facility] Immature granulocytes/100 WBC (Bld) 0.400 % 0.0-0.9 [facility] Comment on above: IG% - Immature Granu locytes (promyelocytes, myelocytes and metamyelocytes) > 1% indicates that a LEFT SHIFT is Present. MCH (RBC) [Entitic mass] 32.3 pg 27.0-32.0 [facility] Nucleated RBC/100 WBC (Bld) [Ratio] 0 % 0-5 [facility] MCHC Auto (RBC) [Mass/Vol]Or dered By: Jeremy Magallanes on 07-25-2023 MCHC (RBC) [Mass/Vol] 32.7 g/dL 32-36 [facility] Comment on above: Delta: 31.1 on 07/21 No Panel InformationOrdered By: Jeremy Magallanes on 07-25-2023 Estimated Creatinine Clearance Calc 20.90 ml/min [facility] Estimated GFR (MDRD) Amer 34 mL/min >60 [facility] Comment on above: GFR Calc Estimated GFR (MDRD) Non-Af Amer 28 mL/min >60 [facility] Comment on above: Non- GFR Calc Platelets bldOrdered By: Jeremy Magallanes on 07-25-2023 Platelets (Bld) [#/Vol] 135 10*3/uL 150-450 [facility] Serum or plasma calcium aubree urement (mass/volume)Ordered By: Jeremy Magallanes on 07-25-2023 Calcium [Mass/Vol] 9.1 mg/dL 8.5-10.1 [facility] Serum or plasma creatinine m easurement (mass/volume)Ordered By: Jeremy Magallanes on 07-25-2023 Creatinine [Mass/Vol] 2.37 mg/dL 0.70-1.30 [facility] Comment on above: The validity of the calculated GFR & GFRAA in patients over 70 years has not been determined. Clinical correlation is essential. Serum or plasma urea nitroge n measurement (mass/volume)Ordered By: Jeremy Magallanes on 07-25-2023 Urea nitrogen [Mass/Vol] 65 mg/dL 7-18 [facility] Thin prep Papanicolaou smear with manual screeningOrdered By: Jeremy Magallanes on 07-25-2023 Thin prep Papanicolaou smear with manual screening 5 5-15 [facility] Basophil percentageOrdered B y: Jeremy Magallanes on 07-21-2023 Basophil percentage 0-5 SEEN /hpf 0-5 [facility] Bilirubin Test strip Ql (U)O rdered By: Jeremy Magallanes on 07-21-2023 Bilirubin Ql (U) Negative Negative [facility] Culture, urineOrdered By: Jono Magallanes on 07-21-2023 Bacteria identified Cx Nom (U) Culture exhibits no growth. [facility] Bacteria identified Cx Nom (U) Culture exhibits no growth. [facility] Ketones Test strip Ql (U)Ord ered By: Jeremy Magallanes on 07-21-2023 Ketones Ql (U) Negative Negative [facility] Mucus LM Ql (Urine sed)Order ed By: Jeremy Magallanes on 07-21-2023 Mucus Ql (Urine sed) 0 SEEN /hpf [facility] Nitrite Test strip Ql (U)Ord ered By: Jeremy Magallanes on 07-21-2023 Nitrite Ql (U) Negative Negative [facility] Protein Test strip Ql (U)Ord ered By: Jeremy Magallanes on 07-21-2023 Protein Ql (U) 30 mg/dl Negative [facility] Squamous epithelial cells de tection in urine sediment by light microscopyOrdered By: Jeremy Magallanes on 07-21-2023 Epithelial cells.squamous LM Ql (Urine sed) 0 SEEN /hpf 0-5 [facility] Urine blood detectionOrdered By: Jeremy Magallanes on 07-21-2023 RBC Ql (U) Negative Negative [facility] RBC Ql (U) 0 SEEN /hpf 0-5 [facility] Urine clarityOrdered By: Jeremy Magallanes on 07-21-2023 Clarity (U) Clear Clear [facility] Urine color determinationOrd ered By: Jeremy Magallanes on 07-21-2023 Color (U) Yellow Yellow [facility] Urine glucose detectionOrder ed By: Jeremy Magallanes on 07-21-2023 Glucose Ql (U) Normal mg/dl Normal [facility] Urine leukocyte esterase det ection by dipstickOrdered By: Jeremy Magallanes on 07-21-2023 Leukocyte esterase Test strip Ql (U) Negative Negative [facility] Urine pHOrdered By: Jeremy Magallanes on 07-21-2023 pH (U) 5.0 [pH] 5.0 - 8.0 [facility] Urine sediment bacteria coun t by microscopy (number/high power field)Ordered By: Jeremy Magallanes on 07-21-2023 Bacteria LM.HPF (Urine sed) [#/Area] 0 /[HPF] None Seen [facility] Urine specific gravity measu rementOrdered By: Jeremy Magallanes on 07-21-2023 Specific gravity (U) [Rel density] 1.015 1.002-1.030 [facility] Urobilinogen Auto test strip Ql (U)Ordered By: Jeremy Magallanes on 07-21-2023 Urobilinogen Ql (U) Normal mg/dl Normal [facility] Laboratory - Chemistry and C hemistry - challengeOrdered By: Jeremy Magallanes on 07-12-2023 Natriuretic peptide B (Bld) [Mass/Vol] 174.5 pg/mL 0-100 [facility] No Panel InformationOrdered By: Jeremy Magallanes on 07-12-2023 174.5 pg/mL 0-100 [facility] Levetiracetam (Keppra) Level 39.0 ug/mL 10.0-40.0 [facility] Comment on above: Performed at: [address] [id number] Director: Suzy Adames MD, Phone: [phone] 39.0 ug/mL 10.0-40.0 [facility] Absolute lymphocyte countOrd ered By: Jeremy Magallanes on 07-11-2023 Lymphocytes Auto (Unsp spec) [#/Vol] 0.89 10*3/uL 0.83-4.51 [facility] Basophil percentageOrdered B y: Jeremy Magallanes on 07-11-2023 Basophil percentage 141 mg/dL 74-106 [facility] Basophil percentage 136 mmol/L 136-145 [facility] Basophil percentage 5.0 mmol/L 3.5-5.1 [facility] Basophil percentage 109 mmol/L 98-107 [facility] Basophils (Bld) [#/Vol] 9.1 10*3/uL 4.4-11.0 [facility] Basophils (Bld) [#/Vol] 7.0 10*3/uL 2.0-7.7 [facility] Basophils/100 WBC (Bld) 76.7 % 47-70 [facility] Basophils/100 WBC (Bld) 3.2 % 0-5 [facility] Basophils/100 WBC (Bld) 0.4 % 0-1 [facility] Blood erythrocytes count (nu mber/volume)Ordered By: Jeremy Magallanes on 07-11-2023 RBC (Bld) [#/Vol] 3.18 10*6/uL 4.6-6.2 [facility] Blood hemoglobin measurement (mass/volume)Ordered By: Jeremy Magallanes on 07-11-2023 Hemoglobin (Bld) [Mass/Vol] 10.2 g/dL 13.0-16.5 [facility] Blood lymphocytes/100 leukoc ytesOrdered By: Jeremy Magallanes on 07-11-2023 Lymphocytes/100 WBC (Bld) 9.8 % 19-41 [facility] Blood monocytes/100 leukocyt esOrdered By: Jeremy Magallanes on 07-11-2023 Monocytes/100 WBC (Bld) 9.5 % 0-10 [facility] Blood platelet mean volumeOr dered By: Jeremy Magallanes on 07-11-2023 Platelet mean volume (Bld) [Entitic vol] 10.5 fL 6.2-12.0 [facility] Determination of erythrocyte mean corpuscular volume (MCV)Ordered By: Jeremy Magallanes on 07-11-2023 MCV (RBC) [Entitic vol] 100.0 fL 80-94 [facility] Glucose Glucometer (BldC) [M ass/Vol]Ordered By: Jeremy Magallanes 07-11-2023 Glucose [Mass/Vol] 132 mg/dL 74-106 [facility] Hematocrit Auto (Bld) [Volum e fraction]Ordered By: Jeremy Magallanes on 07-11-2023 Hematocrit (Bld) [Volume fraction] 31.8 % 40-54 [facility] MCHC Auto (RBC) [Mass/Vol]Or dered By: Jeremy Magallanes 07-11-2023 MCHC (RBC) [Mass/Vol] 32.1 g/dL 32-36 [facility] No Panel InformationOrdered By: Jeremy Magallanes on 07-11-2023 32.1 pg 27.0-32.0 [facility] 15.2 % 11.6-14.6 [facility] 53.7 fl 35.1-43.9 [facility] 0.400 % 0.0-0.9 [facility] 0 % 0-5 [facility] 28 mL/min >60 [facility] 33 mL/min >60 [facility] 20.56 ml/min [facility] 27.8 RATIO 10-20 [facility] 20.0 mmol/L 21.0-32.0 [facility] Platelets bldOrdered By: Jeremy Magallanes on 07-11-2023 Platelets (Bld) [#/Vol] 161 10*3/uL 150-450 [facility] Serum or plasma calcium aubree urement (mass/volume)Ordered By: Jeremy Magallanes on 07-11-2023 Calcium [Mass/Vol] 9.0 mg/dL 8.5-10.1 [facility] Serum or plasma creatinine m easurement (mass/volume)Ordered By: Jeremy Magallanes on 07-11-2023 Creatinine [Mass/Vol] 2.41 mg/dL 0.70-1.30 [facility] Serum or plasma urea nitroge n measurement (mass/volume)Ordered By: Jeremy Magallanes on 07-11-2023 Urea nitrogen [Mass/Vol] 67 mg/dL 7-18 [facility] Thin prep Papanicolaou smear with manual screeningOrdered By: Jeremy Magallanes on 07-11-2023 Thin prep Papanicolaou smear with manual screening 7 -15 [facility] Basophil percentageOrdered B y: Jeremy Magallanes on 07-08-2023 Basophil percentage 6.7 g/dL 6.4-8.2 [facility] Basophil percentage 1.10 mg/dL 0.20-1.00 [facility] Bilirubin [Mass/Vol] 1.10 mg/dL 0.20-1.00 [facility] Comment on above: For patients on eltr ombopag therapy, use of Dimension Latty TBIL is not recommended. Protein [Mass/Vol] 6.7 g/dL 6.4-8.2 [facility] Laboratory - Chemistry and C hemistry - challengeOrdered By: Jeremy Magallanes on 07-08-2023 ALP [Catalytic activity/Vol] 144 U/L 45- [facility] ALT [Catalytic activity/Vol] 19 U/L [facility] Globulin (S) [Mass/Vol] 4.0 g/dL 2.2-4.2 [facility] No Panel InformationOrdered By: Jeremy Magallanes on 07-08-2023 4.0 g/dL 2.2-4.2 [facility] 144 U/L 45-117 [facility] 19 U/L [facility] 329.5 pg/mL 0-100 [facility] Serum or plasma albumin aubree urement (mass/volume)Ordered By: Jeremy Magallanes on 07-08-2023 Albumin [Mass/Vol] 2.7 g/dL 3.2-5.0 [facility] Serum or plasma albumin/glob ulin mass ratioOrdered By: Jeremy Magallanes on 07-08-2023 Albumin/Globulin [Mass ratio] 0.7 {ratio} 0.9-2.4 [facility] Thin prep Papanicolaou smear with manual screeningOrdered By: Jeremy Magallanes on 07-08-2023 Thin prep Papanicolaou smear with manual screening 20 U/L 15-37 [facility] Basophil percentageOrdered B y: Jeremy Magallanes on 07-07-2023 Basophil percentage 0 SEEN /hpf 0-5 [facility] Bilirubin Test strip Ql (U)O rdered By: Jeremy Magallanes on 07-07-2023 Bilirubin Ql (U) Negative Negative [facility] Culture, urineOrdered By: Jono Magallanes on 07-07-2023 Bacteria identified Cx Nom (U) Culture exhibits no growth. [facility] Ketones Test strip Ql (U)Ord ered By: Jeremy Magallanes on 07-07-2023 Ketones Ql (U) Negative Negative [facility] Mucus LM Ql (Urine sed)Order ed By: Jeremy Magallanes on 07-07-2023 Mucus Ql (Urine sed) 0 SEEN /hpf [facility] Nitrite Test strip Ql (U)Ord ered By: Jeremy Magallanes on 07-07-2023 Nitrite Ql (U) Negative Negative [facility] Protein Test strip Ql (U)Ord ered By: Jeremy Magallanes on 07-07-2023 Protein Ql (U) 100 mg/dl Negative [facility] Squamous epithelial cells de tection in urine sediment by light microscopyOrdered By: Jeremy Magallanes on 07-07-2023 Epithelial cells.squamous LM Ql (Urine sed) 0 SEEN /hpf 0-5 [facility] Urine blood detectionOrdered By: Jeremy Magallanes on 07-07-2023 RBC Ql (U) 250 /ul Negative [facility] RBC Ql (U) 5-10 SEEN /hpf 0-5 [facility] Urine clarityOrdered By: Jeremy Magallanes on 07-07-2023 Clarity (U) Clear Clear [facility] Urine color determinationOrd ered By: Jeremy Magallanes on 08-10-2023 Color (U) Yellow Yellow [facility] Urine glucose detectionOrder ed By: Jeremy Magallanes on 07-07-2023 Glucose Ql (U) Normal mg/dl Normal [facility] Urine leukocyte esterase det ection by dipstickOrdered By: Jeremy Magallanes on 07-07-2023 Leukocyte esterase Test strip Ql (U) Negative Negative [facility] Urine pHOrdered By: Jeremy Magallanes on 07-07-2023 pH (U) 6.0 [pH] 5.0 - 8.0 [facility] Urine sediment bacteria coun t by microscopy (number/high power field)Ordered By: Jeremy Magallanes on 07-07-2023 Bacteria LM.HPF (Urine sed) [#/Area] 0 /[HPF] None Seen [facility] Urine specific gravity measu rementOrdered By: Jeremy Magallanes on 07-07-2023 Specific gravity (U) [Rel density] 1.015 1.002-1.030 [facility] Urobilinogen Auto test strip Ql (U)Ordered By: Jeremy Magallanes on 07-07-2023 Urobilinogen Ql (U) Normal mg/dl Normal [facility] No Panel InformationOrdered By: Jeremy Magallanes on 07-06-2023 Vitamin D 25-Hydroxy 42.3 ng/mL [facility] Comment on above: Vitamin D 25(OH) Sta tus Range Deficiency <20 ng/mL (50nmol/L) Insufficiency 20 - 30 ng/mL (50 - 75 nmol/L) Sufficiency 30 - 100 ng/mL (75 - 250 nmol/L) Toxicity >100 ng/mL (>250 nmol/L) 42.3 ng/mL [facility] Stool gastrointestinal hemog lobin detection by immunologic methodOrdered By: Jeremy Magallanes on 07-06-2023 Lower GI hemoglobin IA Ql (Stl) [facility] Stool gastrointestinal hemog lobin detection by immunologic methodOrdered By: Jeremy Magallanes on 07-05-2023 Lower GI hemoglobin IA Ql (Stl) [facility] Glucose Glucometer (BldC) [M ass/Vol]Ordered By: Woody Brunson on 07-03-2023 Glucose [Mass/Vol] 180 mg/dL 74-106 [facility] Comment on above: MANAGEMENT OF PATIEN T CARE PER NURSING PROTOCOL Absolute lymphocyte countOrd ered By: Woody Brunson on 07-01-2023 Lymphocytes Auto (Unsp spec) [#/Vol] 1.34 10*3/uL 0.83-4.51 [facility] Basophil percentageOrdered B y: Woody Brunson on 07-01-2023 Basophil percentage 129 mg/dL 74-106 [facility] Basophil percentage 7.2 g/dL 6.4-8.2 [facility] Basophil percentage 1.50 mg/dL 0.20-1.00 [facility] Basophil percentage 139 mmol/L 136-145 [facility] Basophil percentage 4.4 mmol/L 3.5-5.1 [facility] Basophil percentage 109 mmol/L 98-107 [facility] Basophils (Bld) [#/Vol] 9.3 10*3/uL 4.4-11.0 [facility] Basophils (Bld) [#/Vol] 7.1 10*3/uL 2.0-7.7 [facility] Basophils/100 WBC (Bld) 0.4 % 0-1 [facility] Basophils/100 WBC (Bld) 76.6 % 47-70 [facility] Basophils/100 WBC (Bld) 0.6 % 0-5 [facility] Bilirubin [Mass/Vol] 1.50 mg/dL 0.20-1.00 [facility] Comment on above: For patients on eltr ombopag therapy, use of Dimension Latty TBIL is not recommended. Chloride [Moles/Vol] 109 mmol/L 98-107 [facility] Eosinophils/100 WBC (Bld) 0.6 % 0-5 [facility] Glucose [Mass/Vol] 129 mg/dL 74-106 [facility] Comment on above: Fasting Glucose resu lt greater than or equal to 126 mg/dL suggests DIABETES MELLITUS per A.D.A. criteria. Neutrophils (Bld) [#/Vol] 7.1 10*3/uL 2.0-7.7 [facility] Neutrophils/100 WBC (Bld) 76.6 % 47-70 [facility] Potassium [Moles/Vol] 4.4 mmol/L 3.5-5.1 [facility] Protein [Mass/Vol] 7.2 g/dL 6.4-8.2 [facility] Sodium [Moles/Vol] 139 mmol/L 136-145 [facility] WBC (Bld) [#/Vol] 9.3 10*3/uL 4.4-11.0 [facility] Blood erythrocytes count (nu mber/volume)Ordered By: Woody Brunson on 07-01-2023 RBC (Bld) [#/Vol] 3.55 10*6/uL 4.6-6.2 [facility] Blood hemoglobin measurement (mass/volume)Ordered By: Woody Brunson on 07-01-2023 Hemoglobin (Bld) [Mass/Vol] 11.4 g/dL 13.0-16.5 [facility] Blood lymphocytes/100 leukoc ytesOrdered By: Woody Brunson on 07-01-2023 Lymphocytes/100 WBC (Bld) 14.4 % 19-41 [facility] Blood monocytes/100 leukocyt esOrdered By: Woody Brunson on 07-01-2023 Monocytes/100 WBC (Bld) 7.7 % 0-10 [facility] Blood platelet mean volumeOr dered By: Woody Brunson on 07-01-2023 Platelet mean volume (Bld) [Entitic vol] 11.0 fL 6.2-12.0 [facility] Determination of erythrocyte mean corpuscular volume (MCV)Ordered By: Woody Brunson on 07-01-2023 MCV (RBC) [Entitic vol] 98.0 fL 80-94 [facility] Hematocrit Auto (Bld) [Volum e fraction]Ordered By: Woody Brunson on 07-01-2023 Hematocrit (Bld) [Volume fraction] 34.8 % 40-54 [facility] Laboratory - Chemistry and C hemistry - challengeOrdered By: Woody Brunson on 07-01-2023 ALP [Catalytic activity/Vol] 134 U/L 45-117 [facility] ALT [Catalytic activity/Vol] 14 U/L 16-61 [facility] CO2 [Moles/Vol] 25.0 mmol/L 21.0-32.0 [facility] Globulin (S) [Mass/Vol] 4.1 g/dL 2.2-4.2 [facility] Urea nitrogen/Creatinine [Mass ratio] 20.8 mg/mg 10-20 [facility] Laboratory - Hematology and Cell countsOrdered By: Woody Brunson on 07-01-2023 Erythrocyte distribution width (RBC) [Entitic vol] 51.6 fL 35.1-43.9 [facility] Erythrocyte distribution width (RBC) [Ratio] 14.3 % 11.6-14.6 [facility] Immature granulocytes/100 WBC (Bld) 0.300 % 0.0-0.9 [facility] Comment on above: IG% - Immature Granu locytes (promyelocytes, myelocytes and metamyelocytes) > 1% indicates that a LEFT SHIFT is Present. MCH (RBC) [Entitic mass] 32.1 pg 27.0-32.0 [facility] Nucleated RBC/100 WBC (Bld) [Ratio] 0 % 0-5 [facility] MCHC Auto (RBC) [Mass/Vol]Or dered By: Woody Brunson on 07-01-2023 MCHC (RBC) [Mass/Vol] 32.8 g/dL 32-36 [facility] No Panel InformationOrdered By: Woody Brunson on 07-01-2023 Estimated Creatinine Clearance Calc 23.37 ml/min [facility] Estimated GFR (MDRD) Amer 39 mL/min >60 [facility] Comment on above: GFR Calc Estimated GFR (MDRD) Non-Af Amer 32 mL/min >60 [facility] Comment on above: Non- GFR Calc 32.1 pg 27.0-32.0 [facility] 14.3 % 11.6-14.6 [facility] 51.6 fl 35.1-43.9 [facility] 0.300 % 0.0-0.9 [facility] 0 % 0-5 [facility] 32 mL/min >60 [facility] 39 mL/min >60 [facility] 23.37 ml/min [facility] 20.8 RATIO 10-20 [facility] 4.1 g/dL 2.2-4.2 [facility] 134 U/L 45-117 [facility] 14 U/L 16-61 [facility] 25.0 mmol/L 21.0-32.0 [facility] Platelets bldOrdered By: Ksenia Brunson on 07-01-2023 Platelets (Bld) [#/Vol] 116 10*3/uL 150-450 [facility] Serum or plasma albumin aubree urement (mass/volume)Ordered By: Woody Brunson on 07-01-2023 Albumin [Mass/Vol] 3.1 g/dL 3.2-5.0 [facility] Serum or plasma albumin/glob ulin mass ratioOrdered By: Woody Brunson on 07-01-2023 Albumin/Globulin [Mass ratio] 0.8 {ratio} 0.9-2.4 [facility] Serum or plasma calcium aubree urement (mass/volume)Ordered By: Woody Brunson on 07-01-2023 Calcium [Mass/Vol] 9.0 mg/dL 8.5-10.1 [facility] Serum or plasma creatinine m easurement (mass/volume)Ordered By: Woody Brunson on 07-01-2023 Creatinine [Mass/Vol] 2.12 mg/dL 0.70-1.30 [facility] Comment on above: The validity of the calculated GFR & GFRAA in patients over 70 years has not been determined. Clinical correlation is essential. Serum or plasma urea nitroge n measurement (mass/volume)Ordered By: Woody Brunson on 07-01-2023 Urea nitrogen [Mass/Vol] 44 mg/dL 7-18 [facility] Thin prep Papanicolaou smear with manual screeningOrdered By: Woody Brunson on 07-01-2023 Thin prep Papanicolaou smear with manual screening 21 U/L 15-37 [facility] Thin prep Papanicolaou smear with manual screening 5 5-15 [facility] Assessment of wrist artery p atency prior to arterial punctureOrdered By: Woody Brunson on 06-30-2023 Arterial patency Wrist artery --pre arterial puncture Positive [facility] Base excessOrdered By: Woody Brunson on 06-30-2023 Base excess Calc (BldV) [Moles/Vol] 0 mmol/L -2-2 [facility] Basophil percentageOrdered B y: Woody Brunson on 06-30-2023 Basophil percentage 24.2 mmol/L 22-26 [facility] Basophils/100 WBC (Bld) 97 % 95-99 [facility] Ammonia (P) [Moles/Vol] 28.0 umol/L [facility] Basophil percentage 28.0 umol/L [facility] Basophil percentageOrdered B y: Rigoberto Ashley on 06-30-2023 Basophil percentage 75 mg/dL <200 [facility] Basophil percentage 98 mg/dL <199 [facility] Cholesterol [Mass/Vol] 75 mg/dL <200 [facility] Comment on above: <200 mg/dL Desirable 200-240 mg/dL Borderline >240 mg/dL High Risk Triglyceride [Mass/Vol] 98 mg/dL <199 [facility] Comment on above: The drugs N-Acetylcy steine and Metamizole may falsely depress this assay.Serum Triglycerides Reference Interval Normal <150 mg/dL Borderline high 150 - 199 mg/dL High 200 - 499 mg/dL Very High > or = 500 mg/dL CO2 (BldA) [Partial pressure ]Ordered By: Woody Brunson on 06-30-2023 CO2 (Bld) [Partial pressure] 34.5 mm[Hg] 35-45 [facility] No Panel InformationOrdered By: Woody Brunson on 06-30-2023 Blood Gas Liter Flow 5.0 /min [facility] Blood Gas Sample Site R [facility] Blood Gas Specimen Type ART [facility] Blood Gas Total CO2 25 mmol/L [facility] Oxygen Delivery Device Cannula [facility] ART [facility] R Radial [facility] Cannula [facility] 5.0 /min [facility] 25 mmol/L [facility] No Panel InformationOrdered By: Rigoberto Ashley on 06-30-2023 Thyroid Stimulating Hormone (TSH) 5.37 uIU/mL 0.358-3.74 [facility] 5.37 uIU/mL 0.358-3.74 [facility] Oxygen (BldA) [Partial press ure]Ordered By: Woody Brunson on 06-30-2023 Oxygen (Bld) [Partial pressure] 81 mmHG 75-100 [facility] Serum or plasma cholesterol in HDL measurement (mass/volume)Ordered By: Rigoberto Ashley on 06-30-2023 Cholesterol in HDL [Mass/Vol] 30 mg/dL >40 [facility] Comment on above: The drugs N-Acetylcy steine and Metamizole may falsely depress this assay. Reference Range HDL <40 mg/dL Low HDL Cholesterol HDL >or= 60 mg/dL High HDL Cholesterol Serum or plasma cholesterol in VLDL measurement (mass/volume)Ordered By: Rigoberto Ashley on 06-30-2023 Cholesterol in VLDL [Mass/Vol] 20 mg/dL 5-40 [facility] Serum or plasma low density lipoprotein (LDL) cholesterol measurement (mass/volume)Ordered By: Rigoberto Ashley on 06-30-2023 Cholesterol in LDL [Mass/Vol] 25 mg/dL 0-130 [facility] Whole blood hemoglobin A1c/t otal hemoglobin ratio (mass fraction)Ordered By: Rigoberto Ashley on 06-30-2023 HbA1c (Bld) [Mass fraction] 5.6 % 3.8-5.6 [facility] Comment on above: Normal < 5.7 % Predi abetic 5.7 - 6.4 % Diabetic >or= 6.5 % Please note range changes. pH measurementOrdered By: Kyler Brunson on 06-30-2023 pH (Unsp spec) 7.45 [pH] 7.35-7.45 [facility] Absolute lymphocyte countOrd ered By: Angélica Palomo on 06-29-2023 Lymphocytes Auto (Unsp spec) [#/Vol] 2.01 10*3/uL 0.83-4.51 [facility] Basophil percentageOrdered B y: Angélica Palomo on 06-29-2023 Basophil percentage 0 SEEN /hpf 0-5 [facility] Basophils/100 WBC (Bld) 0.6 % 0-1 [facility] Chloride [Moles/Vol] 107 mmol/L 98-107 [facility] Eosinophils/100 WBC (Bld) 1.4 % 0-5 [facility] Glucose [Mass/Vol] 102 mg/dL 74-106 [facility] Comment on above: Fasting Glucose resu lt from 100 to 125 mg/dL suggests IMPAIRED HOMEOSTASIS per A.D.A. criteria. Neutrophils (Bld) [#/Vol] 6.7 10*3/uL 2.0-7.7 [facility] Neutrophils/100 WBC (Bld) 70.0 % 47-70 [facility] Potassium [Moles/Vol] 4.7 mmol/L 3.5-5.1 [facility] Sodium [Moles/Vol] 141 mmol/L 136-145 [facility] WBC (Bld) [#/Vol] 9.5 10*3/uL 4.4-11.0 [facility] Basophil percentageOrdered B y: Rigoberto Ashley on 06-29-2023 Basophil percentage 3.9 mg/dL 2.5-4.9 [facility] Bilirubin Test strip Ql (U)O rdered By: Angélica Palomo on 06-29-2023 Bilirubin Ql (U) Negative Negative [facility] Blood erythrocytes count (nu mber/volume)Ordered By: Angélica Palomo on 06-29-2023 RBC (Bld) [#/Vol] 3.69 10*6/uL 4.6-6.2 [facility] Blood hemoglobin measurement (mass/volume)Ordered By: Angélica Palomo on 06-29-2023 Hemoglobin (Bld) [Mass/Vol] 11.6 g/dL 13.0-16.5 [facility] Blood lymphocytes/100 leukoc ytesOrdered By: Angélica Palomo on 06-29-2023 Lymphocytes/100 WBC (Bld) 21.1 % 19-41 [facility] Blood monocytes/100 leukocyt esOrdered By: Angélica Palomo on 06-29-2023 Monocytes/100 WBC (Bld) 6.4 % 0-10 [facility] Blood platelet mean volumeOr dered By: Angélica Palomo on 06-29-2023 Platelet mean volume (Bld) [Entitic vol] 11.3 fL 6.2-12.0 [facility] Determination of erythrocyte mean corpuscular volume (MCV)Ordered By: Angélica Palomo on 06-29-2023 MCV (RBC) [Entitic vol] 99.5 fL 80-94 [facility] HCO3 (BldA) [Moles/Vol]Order ed By: Angélica Palomo on 06-29-2023 HCO3 (Bld) [Moles/Vol] 25 mmol/L 22-26 [facility] Hematocrit Auto (Bld) [Volum e fraction]Ordered By: Angélica Palomo on 06-29-2023 Hematocrit (Bld) [Volume fraction] 36.7 % 40-54 [facility] INR in Blood by Coagulation assayOrdered By: Angélica Palomo on 06-29-2023 INR Coag (Bld) [Relative time] 1.5 {INR} [facility] Ketones Test strip Ql (U)Ord ered By: Angélica Palomo on 06-29-2023 Ketones Ql (U) Negative Negative [facility] Laboratory - Chemistry and C hemistry - challengeOrdered By: Angélica Palomo on 06-29-2023 CO2 [Moles/Vol] 26 mmol/L 23-33 [facility] CO2 [Moles/Vol] 28.0 mmol/L 21.0-32.0 [facility] Urea nitrogen/Creatinine [Mass ratio] 19.0 mg/mg 10-20 [facility] Laboratory - Chemistry and C hemistry - challengeOrdered By: Rigoberto Ashley on 06-29-2023 Magnesium [Mass/Vol] 1.9 mg/dL 1.6-2.6 [facility] Laboratory - CoagulationOrde red By: Angélica Palomo on 06-29-2023 aPTT Coag (Bld) [Time] 40.4 s 24.1-36.2 [facility] PT Coag (PPP) [Time] 18.0 s 11.7-14.9 [facility] - Hematology and Cell countsOrdered By: Angélica Palomo on 06-29-2023 Erythrocyte distribution width (RBC) [Entitic vol] 51.5 fL 35.1-43.9 [facility] Erythrocyte distribution width (RBC) [Ratio] 14.2 % 11.6-14.6 [facility] Immature granulocytes/100 WBC (Bld) 0.500 % 0.0-0.9 [facility] Comment on above: IG% - Immature Granu locytes (promyelocytes, myelocytes and metamyelocytes) > 1% indicates that a LEFT SHIFT is Present. MCH (RBC) [Entitic mass] 31.4 pg 27.0-32.0 [facility] Nucleated RBC/100 WBC (Bld) [Ratio] 0 % 0-5 [facility] MCHC Auto (RBC) [Mass/Vol]Or dered By: Angélica Palomo on 06-29-2023 MCHC (RBC) [Mass/Vol] 31.6 g/dL 32-36 [facility] Mucus LM Ql (Urine sed)Order ed By: Angélica Palomo on 06-29-2023 Mucus Ql (Urine sed) 0 SEEN /hpf [facility] Nitrite Test strip Ql (U)Ord ered By: Angélica Palomo on 06-29-2023 Nitrite Ql (U) Negative Negative [facility] No Panel InformationOrdered By: Angélica Palomo on 06-29-2023 Bed Mix Venous Bld PCO2 at Pat Temp 34.8 mmHg 41-51 [facility] Blood Gas Liter Flow 4.0 /min [facility] Blood Gas Specimen Type AYE [facility] Venous Blood Base Excess 1 mmol/L -1.0-3.5 [facility] 34.8 mmHg 41-51 [facility] 1 mmol/L -1.0-3.5 [facility] 93 % 50-70 [facility] 26 mmol/L 23-33 [facility] Estimated Creatinine Clearance Calc 19.98 ml/min [facility] Estimated GFR (MDRD) Amer 32 mL/min >60 [facility] Comment on above: GFR Calc Estimated GFR (MDRD) Non-Af Amer 27 mL/min >60 [facility] Comment on above: Non- GFR Calc Troponin I High Sensitivity 66 pg/mL 3.0-78.0 [facility] Comment on above: Please Note: New Meghana t Units and Gender Specific Reference Ranges. For more information see Policy Stat Procedure Latty High Sensitivity Troponin (TNIH) and attachments. 18.0 SECONDS 11.7-14.9 [facility] 40.4 Seconds 24.1-36.2 [facility] 66 pg/mL 3.0-78.0 [facility] No Panel InformationOrdered By: Rigoberto Ashley on 06-29-2023 1.9 mg/dL 1.6-2.6 [facility] PO2 venousOrdered By: Angélica Palomo on 06-29-2023 Oxygen (BldV) [Partial pressure] 64 mm[Hg] 25-40 [facility] Platelets bldOrdered By: Dee Palomo on 06-29-2023 Platelets (Bld) [#/Vol] 143 10*3/uL 150-450 [facility] Protein Test strip Ql (U)Ord ered By: Angélica Palomo on 06-29-2023 Protein Ql (U) 30 mg/dl Negative [facility] Serum or plasma calcium aubree urement (mass/volume)Ordered By: Angélica Palomo on 06-29-2023 Calcium [Mass/Vol] 9.9 mg/dL 8.5-10.1 [facility] Serum or plasma creatinine m easurement (mass/volume)Ordered By: Angélica Palomo on 06-29-2023 Creatinine [Mass/Vol] 2.48 mg/dL 0.70-1.30 [facility] Comment on above: The validity of the calculated GFR & GFRAA in patients over 70 years has not been determined. Clinical correlation is essential. Serum or plasma urea nitroge n measurement (mass/volume)Ordered By: Angélica Palomo on 06-29-2023 Urea nitrogen [Mass/Vol] 47 mg/dL 7-18 [facility] Squamous epithelial cells de tection in urine sediment by light microscopyOrdered By: Angélica Palomo on 06-29-2023 Epithelial cells.squamous LM Ql (Urine sed) 0 SEEN /hpf 0-5 [facility] Thin prep Papanicolaou smear with manual screeningOrdered By: Angélica Palomo on 06-29-2023 Thin prep Papanicolaou smear with manual screening 6 5-15 [facility] Urine blood detectionOrdered By: Angélica Palomo on 06-29-2023 RBC Ql (U) Negative Negative [facility] RBC Ql (U) 0 SEEN /hpf 0-5 [facility] Urine clarityOrdered By: Dee Palomo on 06-29-2023 Clarity (U) Clear Clear [facility] Urine color determinationOrd ered By: Angélica Palomo on 06-29-2023 Color (U) Yellow Yellow [facility] Urine glucose detectionOrder ed By: Angélica Palomo on 06-29-2023 Glucose Ql (U) Normal mg/dl Normal [facility] Urine leukocyte esterase det ection by dipstickOrdered By: Angélica Palomo on 06-29-2023 Leukocyte esterase Test strip Ql (U) Negative Negative [facility] Urine pHOrdered By: Angélica sher on 06-29-2023 pH (U) 6.0 [pH] 5.0 - 8.0 [facility] Urine sediment bacteria coun t by microscopy (number/high power field)Ordered By: Angélica Palomo on 06-29-2023 Bacteria LM.HPF (Urine sed) [#/Area] 0 /[HPF] None Seen [facility] Urine specific gravity measu rementOrdered By: Angélica Palomo on 06-29-2023 Specific gravity (U) [Rel density] 1.015 1.002-1.030 [facility] Urobilinogen Auto test strip Ql (U)Ordered By: Angélica Palomo on 06-29-2023 Urobilinogen Ql (U) Normal mg/dl Normal [facility] Vital signsOrdered By: Senia Palomo on 06-29-2023 Oxygen saturation in Blood 93 % 50-70 [facility] pH measurementOrdered By: [place] Palomo on 06-29-2023 pH (Unsp spec) 7.46 [pH] 7.32-7.42 [facility] Absolute lymphocyte countOrd ered By: Pepe Au on 06-13-2023 Lymphocytes Auto (Unsp spec) [#/Vol] 1.92 10*3/uL 0.83-4.51 [facility] Basophil percentageOrdered B y: Pepe uA on 06-13-2023 Basophil percentage 3.0 mg/dL 2.5-4.9 [facility] Basophil percentage 172 mg/dL 74-106 [facility] Basophil percentage 140 mmol/L 136-145 [facility] Basophil percentage 4.6 mmol/L 3.5-5.1 [facility] Basophil percentage 110 mmol/L 98-107 [facility] Basophils (Bld) [#/Vol] 8.7 10*3/uL 4.4-11.0 [facility] Basophils (Bld) [#/Vol] 6.0 10*3/uL 2.0-7.7 [facility] Basophils/100 WBC (Bld) 0.3 % 0-1 [facility] Basophils/100 WBC (Bld) 68.6 % 47-70 [facility] Basophils/100 WBC (Bld) 1.8 % 0-5 [facility] Chloride [Moles/Vol] 110 mmol/L 98-107 [facility] Eosinophils/100 WBC (Bld) 1.8 % 0-5 [facility] Glucose [Mass/Vol] 172 mg/dL 74-106 [facility] Comment on above: Fasting Glucose resu lt greater than or equal to 126 mg/dL suggests DIABETES MELLITUS per A.D.A. criteria. Neutrophils (Bld) [#/Vol] 6.0 10*3/uL 2.0-7.7 [facility] Neutrophils/100 WBC (Bld) 68.6 % 47-70 [facility] Potassium [Moles/Vol] 4.6 mmol/L 3.5-5.1 [facility] Sodium [Moles/Vol] 140 mmol/L 136-145 [facility] WBC (Bld) [#/Vol] 8.7 10*3/uL 4.4-11.0 [facility] [facility] Blood erythrocytes count (nu mber/volume)Ordered By: Pepe Au on 06-13-2023 RBC (Bld) [#/Vol] 3.60 10*6/uL 4.6-6.2 [facility] Blood hemoglobin measurement (mass/volume)Ordered By: Pepe Au on 06-13-2023 Hemoglobin (Bld) [Mass/Vol] 11.4 g/dL 13.0-16.5 [facility] Blood lymphocytes/100 leukoc ytesOrdered By: Pepe Au on 06-13-2023 Lymphocytes/100 WBC (Bld) 22.0 % 19-41 [facility] Blood monocytes/100 leukocyt esOrdered By: Pepe Au on 06-13-2023 Monocytes/100 WBC (Bld) 7.0 % 0-10 [facility] Blood platelet mean volumeOr dered By: Pepe Au on 06-13-2023 Platelet mean volume (Bld) [Entitic vol] 10.8 fL 6.2-12.0 [facility] Determination of erythrocyte mean corpuscular volume (MCV)Ordered By: Pepe Au on 06-13-2023 MCV (RBC) [Entitic vol] 101.4 fL 80-94 [facility] Hematocrit Auto (Bld) [Volum e fraction]Ordered By: Pepe Au on 06-13-2023 Hematocrit (Bld) [Volume fraction] 36.5 % 40-54 [facility] Iron measurement (mass/mass) Ordered By: Pepe Au on 06-13-2023 Iron (Unsp spec) [Mass/Mass] 60 ug/dL 65-175 [facility] Laboratory - Chemistry and C hemistry - challengeOrdered By: Pepe Au on 06-13-2023 CO2 [Moles/Vol] 25.0 mmol/L 21.0-32.0 [facility] Urea nitrogen/Creatinine [Mass ratio] 19.7 mg/mg 10-20 [facility] Laboratory - Hematology and Cell countsOrdered By: Pepe Au on 06-13-2023 Erythrocyte distribution width (RBC) [Entitic vol] 52.5 fL 35.1-43.9 [facility] Erythrocyte distribution width (RBC) [Ratio] 14.1 % 11.6-14.6 [facility] Immature granulocytes/100 WBC (Bld) 0.300 % 0.0-0.9 [facility] Comment on above: IG% - Immature Granu locytes (promyelocytes, myelocytes and metamyelocytes) > 1% indicates that a LEFT SHIFT is Present. MCH (RBC) [Entitic mass] 31.7 pg 27.0-32.0 [facility] Nucleated RBC/100 WBC (Bld) [Ratio] 0 % 0-5 [facility] MCHC Auto (RBC) [Mass/Vol]Or dered By: Pepe Au on 06-13-2023 MCHC (RBC) [Mass/Vol] 31.2 g/dL 32-36 [facility] No Panel InformationOrdered By: Pepe Au on 06-13-2023 Estimated GFR (MDRD) Amer 28 mL/min >60 [facility] Comment on above: GFR Calc Estimated GFR (MDRD) Non-Af Amer 23 mL/min >60 [facility] Comment on above: Non- GFR Calc Total Iron Binding Capacity 258 ug/dL 250-450 [facility] 31.7 pg 27.0-32.0 [facility] 14.1 % 11.6-14.6 [facility] 52.5 fl 35.1-43.9 [facility] 0.300 % 0.0-0.9 [facility] 0 % 0-5 [facility] 23 mL/min >60 [facility] 28 mL/min >60 [facility] 19.7 RATIO 10-20 [facility] 25.0 mmol/L 21.0-32.0 [facility] 258 ug/dL 250-450 [facility] Platelets bldOrdered By: Zandra Au on 06-13-2023 Platelets (Bld) [#/Vol] 120 10*3/uL 150-450 [facility] Serum or plasma albumin aubree urement (mass/volume)Ordered By: Pepe Au on 06-13-2023 Albumin [Mass/Vol] 3.3 g/dL 3.2-5.0 [facility] Serum or plasma calcium aubree urement (mass/volume)Ordered By: Pepe Au on 06-13-2023 Calcium [Mass/Vol] 8.5 mg/dL 8.5-10.1 [facility] Serum or plasma creatinine m easurement (mass/volume)Ordered By: Pepe Au on 06-13-2023 Creatinine [Mass/Vol] 2.84 mg/dL 0.70-1.30 [facility] Comment on above: The validity of the calculated GFR & GFRAA in patients over 70 years has not been determined. Clinical correlation is essential. Serum or plasma ferritin laurie surement (mass/volume)Ordered By: Pepe Au on 06-13-2023 Ferritin [Mass/Vol] 168 ng/mL 26-388 [facility] Serum or plasma iron saturat ion measurement (mass fraction)Ordered By: Pepe Au on 06-13-2023 Iron saturation [Mass fraction] 23.3 % 15.0-55.0 [facility] Serum or plasma urea nitroge n measurement (mass/volume)Ordered By: Pepe Au on 06-13-2023 Urea nitrogen [Mass/Vol] 56 mg/dL 7-18 [facility] Absolute lymphocyte countOrd ered By: Toñito Dumontzach on 05-26-2023 Lymphocytes Auto (Unsp spec) [#/Vol] 1.58 10*3/uL 0.83-4.51 [facility] Basophil percentageOrdered B y: Toñito Espino on 05-26-2023 Basophil percentage 3.7 mg/dL 2.5-4.9 [facility] Basophil percentage 196 mg/dL 74-106 [facility] Basophil percentage 7.8 g/dL 6.4-8.2 [facility] Basophil percentage 0.80 mg/dL 0.20-1.00 [facility] Basophil percentage 140 mmol/L 136-145 [facility] Basophil percentage 4.7 mmol/L 3.5-5.1 [facility] Basophil percentage 107 mmol/L 98-107 [facility] Basophils (Bld) [#/Vol] 8.7 10*3/uL 4.4-11.0 [facility] Basophils (Bld) [#/Vol] 6.5 10*3/uL 2.0-7.7 [facility] Basophils/100 WBC (Bld) 0.5 % 0-1 [facility] Basophils/100 WBC (Bld) 74.3 % 47-70 [facility] Basophils/100 WBC (Bld) 1.3 % 0-5 [facility] Bilirubin [Mass/Vol] 0.80 mg/dL 0.20-1.00 [facility] Comment on above: For patients on eltr ombopag therapy, use of Dimension Latty TBIL is not recommended. Chloride [Moles/Vol] 107 mmol/L 98-107 [facility] Eosinophils/100 WBC (Bld) 1.3 % 0-5 [facility] Glucose [Mass/Vol] 196 mg/dL 74-106 [facility] Comment on above: Fasting Glucose resu lt greater than or equal to 126 mg/dL suggests DIABETES MELLITUS per A.D.A. criteria. Neutrophils (Bld) [#/Vol] 6.5 10*3/uL 2.0-7.7 [facility] Neutrophils/100 WBC (Bld) 74.3 % 47-70 [facility] Potassium [Moles/Vol] 4.7 mmol/L 3.5-5.1 [facility] Protein [Mass/Vol] 7.8 g/dL 6.4-8.2 [facility] Sodium [Moles/Vol] 140 mmol/L 136-145 [facility] WBC (Bld) [#/Vol] 8.7 10*3/uL 4.4-11.0 [facility] Blood erythrocytes count (nu mber/volume)Ordered By: Toñito Espino on 05-26-2023 RBC (Bld) [#/Vol] 3.52 10*6/uL 4.6-6.2 [facility] Blood hemoglobin measurement (mass/volume)Ordered By: Toñito Espino on 05-26-2023 Hemoglobin (Bld) [Mass/Vol] 11.1 g/dL 13.0-16.5 [facility] Blood lymphocytes/100 leukoc ytesOrdered By: Toñito Espino on 05-26-2023 Lymphocytes/100 WBC (Bld) 18.1 % 19-41 [facility] Blood monocytes/100 leukocyt esOrdered By: Toñito Espino on 05-26-2023 Monocytes/100 WBC (Bld) 5.3 % 0-10 [facility] Blood platelet mean volumeOr dered By: Toñito Espino on 05-26-2023 Platelet mean volume (Bld) [Entitic vol] 11.6 fL 6.2-12.0 [facility] Determination of erythrocyte mean corpuscular volume (MCV)Ordered By: Toñito Espino on 05-26-2023 MCV (RBC) [Entitic vol] 101.1 fL 80-94 [facility] Hematocrit Auto (Bld) [Volum e fraction]Ordered By: Toñito Espino on 05-26-2023 Hematocrit (Bld) [Volume fraction] 35.6 % 40-54 [facility] Iron measurement (mass/mass) Ordered By: Toñito Espino on 05-26-2023 Iron (Unsp spec) [Mass/Mass] 75 ug/dL 65-175 [facility] Laboratory - Chemistry and C hemistry - challengeOrdered By: Toñito Espino on 05-26-2023 ALP [Catalytic activity/Vol] 134 U/L 45-117 [facility] ALT [Catalytic activity/Vol] 14 U/L 16-61 [facility] CO2 [Moles/Vol] 27.0 mmol/L 21.0-32.0 [facility] Globulin (S) [Mass/Vol] 4.6 g/dL 2.2-4.2 [facility] Urea nitrogen/Creatinine [Mass ratio] 19.9 mg/mg 10-20 [facility] Laboratory - Hematology and Cell countsOrdered By: Toñito Espino on 05-26-2023 Erythrocyte distribution width (RBC) [Entitic vol] 51.8 fL 35.1-43.9 [facility] Erythrocyte distribution width (RBC) [Ratio] 14.2 % 11.6-14.6 [facility] Immature granulocytes/100 WBC (Bld) 0.500 % 0.0-0.9 [facility] Comment on above: IG% - Immature Granu locytes (promyelocytes, myelocytes and metamyelocytes) > 1% indicates that a LEFT SHIFT is Present. MCH (RBC) [Entitic mass] 31.5 pg 27.0-32.0 [facility] Nucleated RBC/100 WBC (Bld) [Ratio] 0 % 0-5 [facility] MCHC Auto (RBC) [Mass/Vol]Or dered By: Toñito Espino on 05-26-2023 MCHC (RBC) [Mass/Vol] 31.2 g/dL 32-36 [facility] No Panel InformationOrdered By: Toñito Espino on 05-26-2023 Estimated GFR (MDRD) Amer 26 mL/min >60 [facility] Comment on above: GFR Calc Estimated GFR (MDRD) Non-Af Amer 21 mL/min >60 [facility] Comment on above: Non- GFR Calc Parathyroid Hormone (Intact) 20.3 pg/mL 18.4-80.1 [facility] Thyroid Stimulating Hormone (TSH) 4.65 uIU/mL 0.358-3.74 [facility] Total Iron Binding Capacity 278 ug/dL 250-450 [facility] 31.5 pg 27.0-32.0 [facility] 14.2 % 11.6-14.6 [facility] 51.8 fl 35.1-43.9 [facility] 0.500 % 0.0-0.9 [facility] 0 % 0-5 [facility] 21 mL/min >60 [facility] 26 mL/min >60 [facility] 19.9 RATIO 10-20 [facility] 4.6 g/dL 2.2-4.2 [facility] 134 U/L 45-117 [facility] 14 U/L 16-61 [facility] 27.0 mmol/L 21.0-32.0 [facility] 4.65 uIU/mL 0.358-3.74 [facility] 278 ug/dL 250-450 [facility] 20.3 pg/mL 18.4-80.1 [facility] Platelets bldOrdered By: Sujit Espino on 05-26-2023 Platelets (Bld) [#/Vol] 130 10*3/uL 150-450 [facility] Serum or plasma albumin aubree urement (mass/volume)Ordered By: Toñito Espino on 05-26-2023 Albumin [Mass/Vol] 3.2 g/dL 3.2-5.0 [facility] Serum or plasma albumin/glob ulin mass ratioOrdered By: Toñito Espino on 05-26-2023 Albumin/Globulin [Mass ratio] 0.7 {ratio} 0.9-2.4 [facility] Serum or plasma calcium aubree urement (mass/volume)Ordered By: Toñito Espino on 05-26-2023 Calcium [Mass/Vol] 9.3 mg/dL 8.5-10.1 [facility] Serum or plasma creatinine m easurement (mass/volume)Ordered By: Toñito Espino on 05-26-2023 Creatinine [Mass/Vol] 3.02 mg/dL 0.70-1.30 [facility] Comment on above: The validity of the calculated GFR & GFRAA in patients over 70 years has not been determined. Clinical correlation is essential. Serum or plasma ferritin laurie surement (mass/volume)Ordered By: Toñito Espino on 05-26-2023 Ferritin [Mass/Vol] 151 ng/mL 26-388 [facility] Serum or plasma iron saturat ion measurement (mass fraction)Ordered By: Toñito Espino on 05-26-2023 Iron saturation [Mass fraction] 27.0 % 15.0-55.0 [facility] Serum or plasma urea nitroge n measurement (mass/volume)Ordered By: Toñito Espino on 05-26-2023 Urea nitrogen [Mass/Vol] 60 mg/dL 7-18 [facility] Thin prep Papanicolaou smear with manual screeningOrdered By: Toñito Espino on 05-26-2023 Thin prep Papanicolaou smear with manual screening 15 U/L 15-37 [facility] Thin prep Papanicolaou smear with manual screening 6 5-15 [facility] Urine creatinine measurement (mass/volume)Ordered By: Toñito Espino on 05-26-2023 Creatinine (U) [Mass/Vol] 84.50 mg/dL NO RANGE EST. [facility] Urine protein measurement (m ass/volume)Ordered By: Toñito Espino on 05-26-2023 Protein (U) [Mass/Vol] 58.6 mg/dL 0.0-11.8 [facility] Urine protein/creatinine mas s ratioOrdered By: Toñito Espino on 05-26-2023 Protein/Creatinine (U) [Mass ratio] 693 mg/g CRE 0-200 [facility] Whole blood hemoglobin A1c/t otal hemoglobin ratio (mass fraction)Ordered By: Toñito Espino on 05-26-2023 HbA1c (Bld) [Mass fraction] 5.5 % 3.8-5.6 [facility] Comment on above: Normal < 5.7 % Predi abetic 5.7 - 6.4 % Diabetic >or= 6.5 % Please note range changes. Absolute lymphocyte countOrd ered By: Dr. Au on 05-16-2023 Lymphocytes Auto (Unsp spec) [#/Vol] 2.23 10*3/uL 0.83-4.51 [facility] Basophil percentageOrdered B y: Dr. Au on 05-16-2023 Basophil percentage 3.8 mg/dL 2.5-4.9 [facility] Basophils/100 WBC (Bld) 0.5 % 0-1 [facility] Chloride [Moles/Vol] 110 mmol/L 98-107 [facility] Eosinophils/100 WBC (Bld) 2.4 % 0-5 [facility] Glucose [Mass/Vol] 163 mg/dL 74-106 [facility] Comment on above: Fasting Glucose resu lt greater than or equal to 126 mg/dL suggests DIABETES MELLITUS per A.D.A. criteria. Neutrophils (Bld) [#/Vol] 6.0 10*3/uL 2.0-7.7 [facility] Neutrophils/100 WBC (Bld) 66.1 % 47-70 [facility] Potassium [Moles/Vol] 4.6 mmol/L 3.5-5.1 [facility] Sodium [Moles/Vol] 141 mmol/L 136-145 [facility] WBC (Bld) [#/Vol] 9.1 10*3/uL 4.4-11.0 [facility] Basophil percentageOrdered B y: Pepe Au on 05-16-2023 Basophil percentage 163 mg/dL 74-106 [facility] Basophil percentage 141 mmol/L 136-145 [facility] Basophil percentage 4.6 mmol/L 3.5-5.1 [facility] Basophil percentage 110 mmol/L 98-107 [facility] Basophils (Bld) [#/Vol] 9.1 10*3/uL 4.4-11.0 [facility] Basophils (Bld) [#/Vol] 6.0 10*3/uL 2.0-7.7 [facility] Basophils/100 WBC (Bld) 66.1 % 47-70 [facility] Basophils/100 WBC (Bld) 2.4 % 0-5 [facility] Blood erythrocytes count (nu mber/volume)Ordered By: Dr. Au on 05-16-2023 RBC (Bld) [#/Vol] 3.57 10*6/uL 4.6-6.2 [facility] Blood hemoglobin measurement (mass/volume)Ordered By: Dr. Au on 05-16-2023 Hemoglobin (Bld) [Mass/Vol] 11.2 g/dL 13.0-16.5 [facility] Blood lymphocytes/100 leukoc ytesOrdered By: Dr. Au on 05-16-2023 Lymphocytes/100 WBC (Bld) 24.5 % 19-41 [facility] Blood monocytes/100 leukocyt esOrdered By: Dr. Au on 05-16-2023 Monocytes/100 WBC (Bld) 6.1 % 0-10 [facility] Blood platelet mean volumeOr dered By: Dr. Au on 05-16-2023 Platelet mean volume (Bld) [Entitic vol] 10.3 fL 6.2-12.0 [facility] Determination of erythrocyte mean corpuscular volume (MCV)Ordered By: Dr. Au on 05-16-2023 MCV (RBC) [Entitic vol] 100.0 fL 80-94 [facility] Hematocrit Auto (Bld) [Volum e fraction]Ordered By: Dr. Au on 05-16-2023 Hematocrit (Bld) [Volume fraction] 35.7 % 40-54 [facility] Iron measurement (mass/mass) Ordered By: Dr. Au on 05-16-2023 Iron (Unsp spec) [Mass/Mass] 70 ug/dL 65-175 [facility] Laboratory - Chemistry and C hemistry - challengeOrdered By: Dr. Au on 05-16-2023 CO2 [Moles/Vol] 25.0 mmol/L 21.0-32.0 [facility] Urea nitrogen/Creatinine [Mass ratio] 21.5 mg/mg 10-20 [facility] Laboratory - Hematology and Cell countsOrdered By: Dr. Au on 05-16-2023 Erythrocyte distribution width (RBC) [Entitic vol] 52.7 fL 35.1-43.9 [facility] Erythrocyte distribution width (RBC) [Ratio] 14.5 % 11.6-14.6 [facility] Immature granulocytes/100 WBC (Bld) 0.400 % 0.0-0.9 [facility] Comment on above: IG% - Immature Granu locytes (promyelocytes, myelocytes and metamyelocytes) > 1% indicates that a LEFT SHIFT is Present. MCH (RBC) [Entitic mass] 31.4 pg 27.0-32.0 [facility] Nucleated RBC/100 WBC (Bld) [Ratio] 0 % 0-5 [facility] MCHC Auto (RBC) [Mass/Vol]Or dered By: Dr. Au on 05-16-2023 MCHC (RBC) [Mass/Vol] 31.4 g/dL 32-36 [facility] No Panel InformationOrdered By: Dr. Au on 05-16-2023 Estimated GFR (MDRD) Amer 26 mL/min >60 [facility] Comment on above: GFR Calc Estimated GFR (MDRD) Non-Af Amer 22 mL/min >60 [facility] Comment on above: Non- GFR Calc Parathyroid Hormone (Intact) 55.0 pg/mL 18.4-80.1 [facility] Total Iron Binding Capacity 231 ug/dL 250-450 [facility] No Panel InformationOrdered By: Pepe Au on 05-16-2023 31.4 pg 27.0-32.0 [facility] 14.5 % 11.6-14.6 [facility] 52.7 fl 35.1-43.9 [facility] 0.400 % 0.0-0.9 [facility] 0 % 0-5 [facility] 22 mL/min >60 [facility] 26 mL/min >60 [facility] 21.5 RATIO 10-20 [facility] 25.0 mmol/L 21.0-32.0 [facility] 231 ug/dL 250-450 [facility] 55.0 pg/mL 18.4-80.1 [facility] Platelets bldOrdered By: Dr. Au on 05-16-2023 Platelets (Bld) [#/Vol] 132 10*3/uL 150-450 [facility] Serum or plasma albumin aubree urement (mass/volume)Ordered By: Dr. Au on 05-16-2023 Albumin [Mass/Vol] 3.2 g/dL 3.2-5.0 [facility] Serum or plasma calcium aubree urement (mass/volume)Ordered By: Dr. Au on 05-16-2023 Calcium [Mass/Vol] 9.1 mg/dL 8.5-10.1 [facility] Serum or plasma creatinine m easurement (mass/volume)Ordered By: Dr. Au on 05-16-2023 Creatinine [Mass/Vol] 2.97 mg/dL 0.70-1.30 [facility] Comment on above: The validity of the calculated GFR & GFRAA in patients over 70 years has not been determined. Clinical correlation is essential. Serum or plasma ferritin laurie surement (mass/volume)Ordered By: Dr. Au on 05-16-2023 Ferritin [Mass/Vol] 154 ng/mL 26-388 [facility] Serum or plasma iron saturat ion measurement (mass fraction)Ordered By: Dr. Au on 05-16-2023 Iron saturation [Mass fraction] 30.3 % 15.0-55.0 [facility] Serum or plasma urea nitroge n measurement (mass/volume)Ordered By: Dr. Au on 05-16-2023 Urea nitrogen [Mass/Vol] 64 mg/dL 7-18 [facility] No Panel Informationon 05-12 Culture Urine <10,000 cfu/ml. No Significant growth. Sensitivity not indicated. [facility] Work Phone: Absolute lymphocyte countOrd ered By: Dr. Au on 04-18-2023 Lymphocytes Auto (Unsp spec) [#/Vol] 1.93 10*3/uL 0.83-4.51 [facility] Basophil percentageOrdered B y: Dr. Au on 04-18-2023 Basophil percentage 4.0 mg/dL 2.5-4.9 [facility] Basophils/100 WBC (Bld) 0.2 % 0-1 [facility] Chloride [Moles/Vol] 107 mmol/L 98-107 [facility] Eosinophils/100 WBC (Bld) 1.9 % 0-5 [facility] Glucose [Mass/Vol] 144 mg/dL 74-106 [facility] Comment on above: Fasting Glucose resu lt greater than or equal to 126 mg/dL suggests DIABETES MELLITUS per A.D.A. criteria. Neutrophils (Bld) [#/Vol] 5.7 10*3/uL 2.0-7.7 [facility] Neutrophils/100 WBC (Bld) 68.4 % 47-70 [facility] Potassium [Moles/Vol] 4.3 mmol/L 3.5-5.1 [facility] Sodium [Moles/Vol] 141 mmol/L 136-145 [facility] WBC (Bld) [#/Vol] 8.4 10*3/uL 4.4-11.0 [facility] Basophil percentageOrdered B y: Pepe Angely on 04-18-2023 Basophil percentage 144 mg/dL 74-106 [facility] Basophil percentage 141 mmol/L 136-145 [facility] Basophil percentage 4.3 mmol/L 3.5-5.1 [facility] Basophil percentage 107 mmol/L 98-107 [facility] Basophils (Bld) [#/Vol] 8.4 10*3/uL 4.4-11.0 [facility] Basophils (Bld) [#/Vol] 5.7 10*3/uL 2.0-7.7 [facility] Basophils/100 WBC (Bld) 68.4 % 47-70 [facility] Basophils/100 WBC (Bld) 1.9 % 0-5 [facility] Blood erythrocytes count (nu mber/volume)Ordered By: Dr. Au on 04-18-2023 RBC (Bld) [#/Vol] 3.61 10*6/uL 4.6-6.2 [facility] Blood hemoglobin measurement (mass/volume)Ordered By: Dr. Au on 04-18-2023 Hemoglobin (Bld) [Mass/Vol] 11.3 g/dL 13.0-16.5 [facility] Blood lymphocytes/100 leukoc ytesOrdered By: Dr. Au on 04-18-2023 Lymphocytes/100 WBC (Bld) 23.0 % 19-41 [facility] Blood monocytes/100 leukocyt esOrdered By: Dr. Au on 04-18-2023 Monocytes/100 WBC (Bld) 6.1 % 0-10 [facility] Blood platelet mean volumeOr dered By: Dr. Au on 04-18-2023 Platelet mean volume (Bld) [Entitic vol] 10.9 fL 6.2-12.0 [facility] Determination of erythrocyte mean corpuscular volume (MCV)Ordered By: Dr. Au on 04-18-2023 MCV (RBC) [Entitic vol] 99.2 fL 80-94 [facility] Hematocrit Auto (Bld) [Volum e fraction]Ordered By: Dr. Au on 04-18-2023 Hematocrit (Bld) [Volume fraction] 35.8 % 40-54 [facility] Iron measurement (mass/mass) Ordered By: Dr. Au on 04-18-2023 Iron (Unsp spec) [Mass/Mass] 59 ug/dL 65-175 [facility] Laboratory - Chemistry and C hemistry - challengeOrdered By: Dr. Au on 04-18-2023 CO2 [Moles/Vol] 27.0 mmol/L 21.0-32.0 [facility] Urea nitrogen/Creatinine [Mass ratio] 23.6 mg/mg 10-20 [facility] Laboratory - Hematology and Cell countsOrdered By: Dr. Au on 04-18-2023 Erythrocyte distribution width (RBC) [Entitic vol] 50.5 fL 35.1-43.9 [facility] Erythrocyte distribution width (RBC) [Ratio] 14.0 % 11.6-14.6 [facility] Immature granulocytes/100 WBC (Bld) 0.400 % 0.0-0.9 [facility] Comment on above: IG% - Immature Granu locytes (promyelocytes, myelocytes and metamyelocytes) > 1% indicates that a LEFT SHIFT is Present. MCH (RBC) [Entitic mass] 31.3 pg 27.0-32.0 [facility] Nucleated RBC/100 WBC (Bld) [Ratio] 0 % 0-5 [facility] MCHC Auto (RBC) [Mass/Vol]Or dered By: Dr. Au on 04-18-2023 MCHC (RBC) [Mass/Vol] 31.6 g/dL 32-36 [facility] No Panel InformationOrdered By: Dr. Au on 04-18-2023 Estimated GFR (MDRD) Amer 25 mL/min >60 [facility] Comment on above: GFR Calc Estimated GFR (MDRD) Non-Af Amer 21 mL/min >60 [facility] Comment on above: Non- GFR Calc Total Iron Binding Capacity 244 ug/dL 250-450 [facility] No Panel InformationOrdered By: Pepe Au on 04-18-2023 31.3 pg 27.0-32.0 [facility] 14.0 % 11.6-14.6 [facility] 50.5 fl 35.1-43.9 [facility] 0.400 % 0.0-0.9 [facility] 0 % 0-5 [facility] 21 mL/min >60 [facility] 25 mL/min >60 [facility] 23.6 RATIO 10-20 [facility] 27.0 mmol/L 21.0-32.0 [facility] 244 ug/dL 250-450 [facility] Platelets bldOrdered By: Dr. Au on 04-18-2023 Platelets (Bld) [#/Vol] 136 10*3/uL 150-450 [facility] Serum or plasma albumin aubree urement (mass/volume)Ordered By: Dr. Au on 04-18-2023 Albumin [Mass/Vol] 3.2 g/dL 3.2-5.0 [facility] Serum or plasma calcium aubree urement (mass/volume)Ordered By: Dr. Au on 04-18-2023 Calcium [Mass/Vol] 8.9 mg/dL 8.5-10.1 [facility] Serum or plasma creatinine m easurement (mass/volume)Ordered By: Dr. Au on 04-18-2023 Creatinine [Mass/Vol] 3.09 mg/dL 0.70-1.30 [facility] Comment on above: The validity of the calculated GFR & GFRAA in patients over 70 years has not been determined. Clinical correlation is essential. Serum or plasma ferritin laurie surement (mass/volume)Ordered By: Dr. Au on 04-18-2023 Ferritin [Mass/Vol] 184 ng/mL 26-388 [facility] Serum or plasma iron saturat ion measurement (mass fraction)Ordered By: Dr. Au on 04-18-2023 Iron saturation [Mass fraction] 24.2 % 15.0-55.0 [facility] Serum or plasma urea nitroge n measurement (mass/volume)Ordered By: Dr. Au on 04-18-2023 Urea nitrogen [Mass/Vol] 73 mg/dL 7-18 [facility] Absolute lymphocyte countOrd ered By: Dr. Au on 03-21-2023 Lymphocytes Auto (Unsp spec) [#/Vol] 2.09 10*3/uL 0.83-4.51 [facility] Basophil percentageOrdered B y: Dr. Au on 03-21-2023 Basophil percentage 3.2 mg/dL 2.5-4.9 [facility] Basophils/100 WBC (Bld) 0.6 % 0-1 [facility] Chloride [Moles/Vol] 107 mmol/L 98-107 [facility] Eosinophils/100 WBC (Bld) 3.1 % 0-5 [facility] Glucose [Mass/Vol] 151 mg/dL 74-106 [facility] Comment on above: Fasting Glucose resu lt greater than or equal to 126 mg/dL suggests DIABETES MELLITUS per A.D.A. criteria. Neutrophils (Bld) [#/Vol] 6.0 10*3/uL 2.0-7.7 [facility] Neutrophils/100 WBC (Bld) 66.3 % 47-70 [facility] Potassium [Moles/Vol] 4.4 mmol/L 3.5-5.1 [facility] Sodium [Moles/Vol] 137 mmol/L 136-145 [facility] WBC (Bld) [#/Vol] 9.1 10*3/uL 4.4-11.0 [facility] Basophil percentageOrdered B y: Pepe Au on 03-21-2023 Basophil percentage 151 mg/dL 74-106 [facility] Basophil percentage 137 mmol/L 136-145 [facility] Basophil percentage 4.4 mmol/L 3.5-5.1 [facility] Basophil percentage 107 mmol/L 98-107 [facility] Basophils (Bld) [#/Vol] 9.1 10*3/uL 4.4-11.0 [facility] Basophils (Bld) [#/Vol] 6.0 10*3/uL 2.0-7.7 [facility] Basophils/100 WBC (Bld) 66.3 % 47-70 [facility] Basophils/100 WBC (Bld) 3.1 % 0-5 [facility] Blood erythrocytes count (nu mber/volume)Ordered By: Dr. Au on 03-21-2023 RBC (Bld) [#/Vol] 3.57 10*6/uL 4.6-6.2 [facility] Blood hemoglobin measurement (mass/volume)Ordered By: Dr. Au on 03-21-2023 Hemoglobin (Bld) [Mass/Vol] 11.3 g/dL 13.0-16.5 [facility] Blood lymphocytes/100 leukoc ytesOrdered By: Dr. Au on 03-21-2023 Lymphocytes/100 WBC (Bld) 23.0 % 19-41 [facility] Blood monocytes/100 leukocyt esOrdered By: Dr. Au on 03-21-2023 Monocytes/100 WBC (Bld) 6.7 % 0-10 [facility] Blood platelet mean volumeOr dered By: Dr. Au on 03-21-2023 Platelet mean volume (Bld) [Entitic vol] 10.1 fL 6.2-12.0 [facility] Determination of erythrocyte mean corpuscular volume (MCV)Ordered By: Dr. Au on 03-21-2023 MCV (RBC) [Entitic vol] 100.0 fL 80-94 [facility] Hematocrit Auto (Bld) [Volum e fraction]Ordered By: Dr. Au on 03-21-2023 Hematocrit (Bld) [Volume fraction] 35.7 % 40-54 [facility] Iron measurement (mass/mass) Ordered By: Dr. Au on 03-21-2023 Iron (Unsp spec) [Mass/Mass] 88 ug/dL 65-175 [facility] Laboratory - Chemistry and C hemistry - challengeOrdered By: Dr. Au on 03-21-2023 CO2 [Moles/Vol] 27.0 mmol/L 21.0-32.0 [facility] Urea nitrogen/Creatinine [Mass ratio] 23.1 mg/mg 10-20 [facility] Laboratory - Hematology and Cell countsOrdered By: Dr. Au on 03-21-2023 Erythrocyte distribution width (RBC) [Entitic vol] 52.0 fL 35.1-43.9 [facility] Erythrocyte distribution width (RBC) [Ratio] 14.2 % 11.6-14.6 [facility] Immature granulocytes/100 WBC (Bld) 0.300 % 0.0-0.9 [facility] Comment on above: IG% - Immature Granu locytes (promyelocytes, myelocytes and metamyelocytes) > 1% indicates that a LEFT SHIFT is Present. MCH (RBC) [Entitic mass] 31.7 pg 27.0-32.0 [facility] Nucleated RBC/100 WBC (Bld) [Ratio] 0 % 0-5 [facility] MCHC Auto (RBC) [Mass/Vol]Or dered By: Dr. Au on 03-21-2023 MCHC (RBC) [Mass/Vol] 31.7 g/dL 32-36 [facility] No Panel InformationOrdered By: Dr. Au on 03-21-2023 Estimated GFR (MDRD) Amer 28 mL/min >60 [facility] Comment on above: GFR Calc Estimated GFR (MDRD) Non-Af Amer 23 mL/min >60 [facility] Comment on above: Non- GFR Calc Parathyroid Hormone (Intact) 35.6 pg/mL 18.4-80.1 [facility] Total Iron Binding Capacity 224 ug/dL 250-450 [facility] No Panel InformationOrdered By: Pepe Au on 03-21-2023 31.7 pg 27.0-32.0 [facility] 14.2 % 11.6-14.6 [facility] 52.0 fl 35.1-43.9 [facility] 0.300 % 0.0-0.9 [facility] 0 % 0-5 [facility] 23 mL/min >60 [facility] 28 mL/min >60 [facility] 23.1 RATIO 10-20 [facility] 27.0 mmol/L 21.0-32.0 [facility] 224 ug/dL 250-450 [facility] 35.6 pg/mL 18.4-80.1 [facility] Platelets bldOrdered By: Dr. Au on 03-21-2023 Platelets (Bld) [#/Vol] 130 10*3/uL 150-450 [facility] Serum or plasma albumin aubree urement (mass/volume)Ordered By: Dr. Au on 03-21-2023 Albumin [Mass/Vol] 3.3 g/dL 3.2-5.0 [facility] Serum or plasma calcium aubree urement (mass/volume)Ordered By: Dr. Au on 03-21-2023 Calcium [Mass/Vol] 9.6 mg/dL 8.5-10.1 [facility] Serum or plasma creatinine m easurement (mass/volume)Ordered By: Dr. Au on 03-21-2023 Creatinine [Mass/Vol] 2.81 mg/dL 0.70-1.30 [facility] Comment on above: The validity of the calculated GFR & GFRAA in patients over 70 years has not been determined. Clinical correlation is essential. Serum or plasma ferritin laurie surement (mass/volume)Ordered By: Dr. Au on 03-21-2023 Ferritin [Mass/Vol] 178 ng/mL 26-388 [facility] Serum or plasma iron saturat ion measurement (mass fraction)Ordered By: Dr. Au on 03-21-2023 Iron saturation [Mass fraction] 39.3 % 15.0-55.0 [facility] Serum or plasma urea nitroge n measurement (mass/volume)Ordered By: Dr. Au on 03-21-2023 Urea nitrogen [Mass/Vol] 65 mg/dL 7-18 [facility] Basophil percentageOrdered B y: Dr. Au on 02-21-2023 Basophil percentage 2.8 mg/dL 2.5-4.9 [facility] Bilirubin [Mass/Vol] 0.70 mg/dL 0.20-1.00 [facility] Comment on above: For patients on eltr ombopag therapy, use of Dimension Latty TBIL is not recommended. Chloride [Moles/Vol] 107 mmol/L 98-107 [facility] Cholesterol [Mass/Vol] 88 mg/dL <200 [facility] Comment on above: <200 mg/dL Desirable 200-240 mg/dL Borderline >240 mg/dL High Risk Glucose [Mass/Vol] 167 mg/dL 74-106 [facility] Comment on above: Fasting Glucose resu lt greater than or equal to 126 mg/dL suggests DIABETES MELLITUS per A.D.A. criteria. Potassium [Moles/Vol] 4.3 mmol/L 3.5-5.1 [facility] Protein [Mass/Vol] 7.6 g/dL 6.4-8.2 [facility] Sodium [Moles/Vol] 137 mmol/L 136-145 [facility] Triglyceride [Mass/Vol] 93 mg/dL <199 [facility] Comment on above: The drugs N-Acetylcy steine and Metamizole may falsely depress this assay.Serum Triglycerides Reference Interval Normal <150 mg/dL Borderline high 150 - 199 mg/dL High 200 - 499 mg/dL Very High > or = 500 mg/dL WBC (Bld) [#/Vol] 8.7 10*3/uL 4.4-11.0 [facility] Blood erythrocytes count (nu mber/volume)Ordered By: Dr. Au on 02-21-2023 RBC (Bld) [#/Vol] 3.38 10*6/uL 4.6-6.2 [facility] Blood hemoglobin measurement (mass/volume)Ordered By: Dr. Au on 02-21-2023 Hemoglobin (Bld) [Mass/Vol] 10.7 g/dL 13.0-16.5 [facility] Blood platelet mean volumeOr dered By: Dr. Au on 02-21-2023 Platelet mean volume (Bld) [Entitic vol] 10.6 fL 6.2-12.0 [facility] Determination of erythrocyte mean corpuscular volume (MCV)Ordered By: Dr. Au on 02-21-2023 MCV (RBC) [Entitic vol] 98.2 fL 80-94 [facility] Hematocrit Auto (Bld) [Volum e fraction]Ordered By: Dr. Au on 02-21-2023 Hematocrit (Bld) [Volume fraction] 33.2 % 40-54 [facility] Iron measurement (mass/mass) Ordered By: Dr. Au on 02-21-2023 Iron (Unsp spec) [Mass/Mass] 49 ug/dL 65-175 [facility] Laboratory - Chemistry and C hemistry - challengeOrdered By: Dr. Au on 02-21-2023 ALP [Catalytic activity/Vol] 137 U/L 45-117 [facility] ALT [Catalytic activity/Vol] 14 U/L 16-61 [facility] CO2 [Moles/Vol] 24.0 mmol/L 21.0-32.0 [facility] Globulin (S) [Mass/Vol] 4.5 g/dL 2.2-4.2 [facility] Urea nitrogen/Creatinine [Mass ratio] 17.2 mg/mg 10-20 [facility] Laboratory - Hematology and Cell countsOrdered By: Dr. Au on 02-21-2023 Erythrocyte distribution width (RBC) [Entitic vol] 52.2 fL 35.1-43.9 [facility] Erythrocyte distribution width (RBC) [Ratio] 14.5 % 11.6-14.6 [facility] MCH (RBC) [Entitic mass] 31.7 pg 27.0-32.0 [facility] MCHC Auto (RBC) [Mass/Vol]Or dered By: Dr. Au on 02-21-2023 MCHC (RBC) [Mass/Vol] 32.2 g/dL 32-36 [facility] No Panel InformationOrdered By: Dr. Au on 02-21-2023 Estimated GFR (MDRD) Amer 23 mL/min >60 [facility] Comment on above: GFR Calc Estimated GFR (MDRD) Non-Af Amer 19 mL/min >60 [facility] Comment on above: Non- GFR Calc Thyroid Stimulating Hormone (TSH) 4.77 uIU/mL 0.358-3.74 [facility] Total Iron Binding Capacity 201 ug/dL 250-450 [facility] Platelets bldOrdered By: Dr. Au on 02-21-2023 Platelets (Bld) [#/Vol] 147 10*3/uL 150-450 [facility] Serum or plasma albumin aubree urement (mass/volume)Ordered By: Dr. Au on 02-21-2023 Albumin [Mass/Vol] 3.1 g/dL 3.2-5.0 [facility] Serum or plasma albumin/glob ulin mass ratioOrdered By: Dr. Au on 02-21-2023 Albumin/Globulin [Mass ratio] 0.7 {ratio} 0.9-2.4 [facility] Serum or plasma calcium aubree urement (mass/volume)Ordered By: Dr. Au on 02-21-2023 Calcium [Mass/Vol] 8.5 mg/dL 8.5-10.1 [facility] Serum or plasma cholesterol in HDL measurement (mass/volume)Ordered By: Dr. Au on 02-21-2023 Cholesterol in HDL [Mass/Vol] 30 mg/dL >40 [facility] Comment on above: The drugs N-Acetylcy steine and Metamizole may falsely depress this assay. Reference Range HDL <40 mg/dL Low HDL Cholesterol HDL >or= 60 mg/dL High HDL Cholesterol Serum or plasma cholesterol in VLDL measurement (mass/volume)Ordered By: Dr. Au on 02-21-2023 Cholesterol in VLDL [Mass/Vol] 19 mg/dL 5-40 [facility] Serum or plasma creatinine m easurement (mass/volume)Ordered By: Dr. Au on 02-21-2023 Creatinine [Mass/Vol] 3.37 mg/dL 0.70-1.30 [facility] Comment on above: The validity of the calculated GFR & GFRAA in patients over 70 years has not been determined. Clinical correlation is essential. Serum or plasma ferritin laurie surement (mass/volume)Ordered By: Dr. Au on 02-21-2023 Ferritin [Mass/Vol] 167 ng/mL 26-388 [facility] Serum or plasma iron saturat ion measurement (mass fraction)Ordered By: Dr. Au on 02-21-2023 Iron saturation [Mass fraction] 24.4 % 15.0-55.0 [facility] Serum or plasma low density lipoprotein (LDL) cholesterol measurement (mass/volume)Ordered By: Dr. Au on 02-21-2023 Cholesterol in LDL [Mass/Vol] 39 mg/dL 0-130 [facility] Serum or plasma urea nitroge n measurement (mass/volume)Ordered By: Dr. Au on 02-21-2023 Urea nitrogen [Mass/Vol] 58 mg/dL 7-18 [facility] Thin prep Papanicolaou smear with manual screeningOrdered By: Dr. Au on 02-21-2023 Thin prep Papanicolaou smear with manual screening 14 U/L 15-37 [facility] Thin prep Papanicolaou smear with manual screening 6 5-15 [facility] Whole blood hemoglobin A1c/t otal hemoglobin ratio (mass fraction)Ordered By: Dr. Au on 02-21-2023 HbA1c (Bld) [Mass fraction] 5.6 % 3.8-5.6 [facility] Comment on above: Normal < 5.7 % Predi abetic 5.7 - 6.4 % Diabetic >or= 6.5 % Please note range changes. Absolute lymphocyte countOrd ered By: Dr. Au on 01-31-2023 Lymphocytes Auto (Unsp spec) [#/Vol] 1.94 10*3/uL 0.83-4.51 [facility] Basophil percentageOrdered B y: Dr. Au on 01-31-2023 Basophil percentage 4.1 mg/dL 2.5-4.9 [facility] Basophils/100 WBC (Bld) 0.5 % 0-1 [facility] Chloride [Moles/Vol] 103 mmol/L 98-107 [facility] Eosinophils/100 WBC (Bld) 3.3 % 0-5 [facility] Glucose [Mass/Vol] 145 mg/dL 74-106 [facility] Comment on above: Fasting Glucose resu lt greater than or equal to 126 mg/dL suggests DIABETES MELLITUS per A.D.A. criteria. Neutrophils (Bld) [#/Vol] 6.1 10*3/uL 2.0-7.7 [facility] Neutrophils/100 WBC (Bld) 67.5 % 47-70 [facility] Potassium [Moles/Vol] 4.6 mmol/L 3.5-5.1 [facility] Sodium [Moles/Vol] 139 mmol/L 136-145 [facility] WBC (Bld) [#/Vol] 9.1 10*3/uL 4.4-11.0 [facility] Blood erythrocytes count (nu mber/volume)Ordered By: Dr. Au on 01-31-2023 RBC (Bld) [#/Vol] 3.74 10*6/uL 4.6-6.2 [facility] Blood hemoglobin measurement (mass/volume)Ordered By: Dr. Au on 01-31-2023 Hemoglobin (Bld) [Mass/Vol] 11.7 g/dL 13.0-16.5 [facility] Blood lymphocytes/100 leukoc ytesOrdered By: Dr. uA on 01-31-2023 Lymphocytes/100 WBC (Bld) 21.3 % 19-41 [facility] Blood monocytes/100 leukocyt esOrdered By: Dr. Au on 01-31-2023 Monocytes/100 WBC (Bld) 6.9 % 0-10 [facility] Blood platelet mean volumeOr dered By: Dr. Au on 01-31-2023 Platelet mean volume (Bld) [Entitic vol] 10.4 fL 6.2-12.0 [facility] Determination of erythrocyte mean corpuscular volume (MCV)Ordered By: Dr. Au on 01-31-2023 MCV (RBC) [Entitic vol] 100.0 fL 80-94 [facility] Hematocrit Auto (Bld) [Volum e fraction]Ordered By: Dr. Au on 01-31-2023 Hematocrit (Bld) [Volume fraction] 37.4 % 40-54 [facility] Iron measurement (mass/mass) Ordered By: Dr. Au on 01-31-2023 Iron (Unsp spec) [Mass/Mass] 65 ug/dL 65-175 [facility] Laboratory - Chemistry and C hemistry - challengeOrdered By: Dr. Au on 01-31-2023 CO2 [Moles/Vol] 29.0 mmol/L 21.0-32.0 [facility] Urea nitrogen/Creatinine [Mass ratio] 22.1 mg/mg 10-20 [facility] Laboratory - Hematology and Cell countsOrdered By: Dr. Au on 01-31-2023 Erythrocyte distribution width (RBC) [Entitic vol] 51.0 fL 35.1-43.9 [facility] Erythrocyte distribution width (RBC) [Ratio] 14.3 % 11.6-14.6 [facility] Immature granulocytes/100 WBC (Bld) 0.500 % 0.0-0.9 [facility] Comment on above: IG% - Immature Granu locytes (promyelocytes, myelocytes and metamyelocytes) > 1% indicates that a LEFT SHIFT is Present. MCH (RBC) [Entitic mass] 31.3 pg 27.0-32.0 [facility] Nucleated RBC/100 WBC (Bld) [Ratio] 0 % 0-5 [facility] MCHC Auto (RBC) [Mass/Vol]Or dered By: Dr. Au on 01-31-2023 MCHC (RBC) [Mass/Vol] 31.3 g/dL 32-36 [facility] No Panel InformationOrdered By: Dr. Au on 01-31-2023 Estimated GFR (MDRD) Amer 29 mL/min >60 [facility] Comment on above: GFR Calc Estimated GFR (MDRD) Non-Af Amer 24 mL/min >60 [facility] Comment on above: Non- GFR Calc Parathyroid Hormone (Intact) 32.8 pg/mL 18.4-80.1 [facility] Total Iron Binding Capacity 265 ug/dL 250-450 [facility] Platelets bldOrdered By: Dr. Au on 01-31-2023 Platelets (Bld) [#/Vol] 167 10*3/uL 150-450 [facility] Serum or plasma albumin aubree urement (mass/volume)Ordered By: Dr. Au on 01-31-2023 Albumin [Mass/Vol] 3.1 g/dL 3.2-5.0 [facility] Serum or plasma calcium aubree urement (mass/volume)Ordered By: Dr. Au on 01-31-2023 Calcium [Mass/Vol] 9.6 mg/dL 8.5-10.1 [facility] Serum or plasma creatinine m easurement (mass/volume)Ordered By: Dr. Au on 01-31-2023 Creatinine [Mass/Vol] 2.76 mg/dL 0.70-1.30 [facility] Comment on above: The validity of the calculated GFR & GFRAA in patients over 70 years has not been determined. Clinical correlation is essential. Serum or plasma ferritin laurie surement (mass/volume)Ordered By: Dr. Au on 01-31-2023 Ferritin [Mass/Vol] 191 ng/mL 26-388 [facility] Serum or plasma iron saturat ion measurement (mass fraction)Ordered By: Dr. Au on 01-31-2023 Iron saturation [Mass fraction] 24.5 % 15.0-55.0 [facility] Serum or plasma urea nitroge n measurement (mass/volume)Ordered By: Dr. Au on 01-31-2023 Urea nitrogen [Mass/Vol] 61 mg/dL 7-18 [facility] Serum or plasma uric acid me asurement (mass/volume)Ordered By: Dr. Au on 01-31-2023 Urate [Mass/Vol] 6.2 mg/dL 3.5-7.2 [facility] Comment on above: The drugs N-Acetylcy steine and Metamizole may falsely depress this assay. Urine creatinine measurement (mass/volume)Ordered By: Dr. Au on 01-31-2023 Creatinine (U) [Mass/Vol] 119.00 mg/dL NO RANGE EST. [facility] Urine protein measurement (m ass/volume)Ordered By: Dr. Au on 01-31-2023 Protein (U) [Mass/Vol] 64.8 mg/dL 0.0-11.8 [facility] Urine protein/creatinine mas s ratioOrdered By: Dr. Au on 01-31-2023 Protein/Creatinine (U) [Mass ratio] 545 mg/g CRE 0-200 [facility] Absolute lymphocyte countOrd ered By: Dr. Au on 01-24-2023 Lymphocytes Auto (Unsp spec) [#/Vol] 1.96 10*3/uL 0.83-4.51 [facility] Basophil percentageOrdered B y: Dr. Au on 01-24-2023 Basophil percentage 3.7 mg/dL 2.5-4.9 [facility] Basophils/100 WBC (Bld) 0.4 % 0-1 [facility] Chloride [Moles/Vol] 105 mmol/L 98-107 [facility] Eosinophils/100 WBC (Bld) 2.6 % 0-5 [facility] Glucose [Mass/Vol] 182 mg/dL 74-106 [facility] Comment on above: Fasting Glucose resu lt greater than or equal to 126 mg/dL suggests DIABETES MELLITUS per A.D.A. criteria. Neutrophils (Bld) [#/Vol] 6.3 10*3/uL 2.0-7.7 [facility] Neutrophils/100 WBC (Bld) 69.4 % 47-70 [facility] Potassium [Moles/Vol] 4.7 mmol/L 3.5-5.1 [facility] Sodium [Moles/Vol] 141 mmol/L 136-145 [facility] WBC (Bld) [#/Vol] 9.1 10*3/uL 4.4-11.0 [facility] Blood erythrocytes count (nu mber/volume)Ordered By: Dr. Au on 01-24-2023 RBC (Bld) [#/Vol] 3.46 10*6/uL 4.6-6.2 [facility] Blood hemoglobin measurement (mass/volume)Ordered By: Dr. Au on 01-24-2023 Hemoglobin (Bld) [Mass/Vol] 10.9 g/dL 13.0-16.5 [facility] Blood lymphocytes/100 leukoc ytesOrdered By: Dr. Au on 01-24-2023 Lymphocytes/100 WBC (Bld) 21.4 % 19-41 [facility] Blood monocytes/100 leukocyt esOrdered By: Dr. Au on 01-24-2023 Monocytes/100 WBC (Bld) 5.8 % 0-10 [facility] Blood platelet mean volumeOr dered By: Dr. Au on 01-24-2023 Platelet mean volume (Bld) [Entitic vol] 10.3 fL 6.2-12.0 [facility] Determination of erythrocyte mean corpuscular volume (MCV)Ordered By: Dr. Au on 01-24-2023 MCV (RBC) [Entitic vol] 98.8 fL 80-94 [facility] Hematocrit Auto (Bld) [Volum e fraction]Ordered By: Dr. Au on 01-24-2023 Hematocrit (Bld) [Volume fraction] 34.2 % 40-54 [facility] Iron measurement (mass/mass) Ordered By: Dr. Au on 01-24-2023 Iron (Unsp spec) [Mass/Mass] 68 ug/dL 65-175 [facility] Laboratory - Chemistry and C hemistry - challengeOrdered By: Dr. Au on 01-24-2023 CO2 [Moles/Vol] 28.0 mmol/L 21.0-32.0 [facility] Urea nitrogen/Creatinine [Mass ratio] 22.6 mg/mg 10-20 [facility] Laboratory - Hematology and Cell countsOrdered By: Dr. Au on 01-24-2023 Erythrocyte distribution width (RBC) [Entitic vol] 50.6 fL 35.1-43.9 [facility] Erythrocyte distribution width (RBC) [Ratio] 14.2 % 11.6-14.6 [facility] Immature granulocytes/100 WBC (Bld) 0.400 % 0.0-0.9 [facility] Comment on above: IG% - Immature Granu locytes (promyelocytes, myelocytes and metamyelocytes) > 1% indicates that a LEFT SHIFT is Present. MCH (RBC) [Entitic mass] 31.5 pg 27.0-32.0 [facility] Nucleated RBC/100 WBC (Bld) [Ratio] 0 % 0-5 [facility] MCHC Auto (RBC) [Mass/Vol]Or dered By: Dr. Au on 01-24-2023 MCHC (RBC) [Mass/Vol] 31.9 g/dL 32-36 [facility] No Panel InformationOrdered By: Dr. Au on 01-24-2023 Estimated GFR (MDRD) Amer 30 mL/min >60 [facility] Comment on above: GFR Calc Estimated GFR (MDRD) Non-Af Amer 25 mL/min >60 [facility] Comment on above: Non- GFR Calc Total Iron Binding Capacity 202 ug/dL 250-450 [facility] Platelets bldOrdered By: Dr. Au on 01-24-2023 Platelets (Bld) [#/Vol] 149 10*3/uL 150-450 [facility] Serum or plasma albumin aubree urement (mass/volume)Ordered By: Dr. Au on 01-24-2023 Albumin [Mass/Vol] 3.0 g/dL 3.2-5.0 [facility] Serum or plasma calcium aubree urement (mass/volume)Ordered By: Dr. Au on 01-24-2023 Calcium [Mass/Vol] 9.5 mg/dL 8.5-10.1 [facility] Serum or plasma creatinine m easurement (mass/volume)Ordered By: Dr. Au on 01-24-2023 Creatinine [Mass/Vol] 2.65 mg/dL 0.70-1.30 [facility] Comment on above: The validity of the calculated GFR & GFRAA in patients over 70 years has not been determined. Clinical correlation is essential. Serum or plasma ferritin laurie surement (mass/volume)Ordered By: Dr. Au on 01-24-2023 Ferritin [Mass/Vol] 191 ng/mL 26-388 [facility] Serum or plasma iron saturat ion measurement (mass fraction)Ordered By: Dr. Au on 01-24-2023 Iron saturation [Mass fraction] 33.7 % 15.0-55.0 [facility] Serum or plasma urea nitroge n measurement (mass/volume)Ordered By: Dr. Au on 01-24-2023 Urea nitrogen [Mass/Vol] 60 mg/dL 7-18 [facility] Absolute lymphocyte countOrd ered By: Dr. Au on 12-28-2022 Lymphocytes Auto (Unsp spec) [#/Vol] 1.99 10*3/uL 0.83-4.51 [facility] Basophil percentageOrdered B y: Dr. Au on 12-28-2022 Basophil percentage 3.9 mg/dL 2.5-4.9 [facility] Basophils/100 WBC (Bld) 0.2 % 0-1 [facility] Chloride [Moles/Vol] 107 mmol/L 98-107 [facility] Eosinophils/100 WBC (Bld) 3.0 % 0-5 [facility] Glucose [Mass/Vol] 214 mg/dL 74-106 [facility] Comment on above: Glucose result great er than or equal to 200 mg/dLsuggests DIABETES MELLITUS per A.D.A. criteria. Neutrophils (Bld) [#/Vol] 6.4 10*3/uL 2.0-7.7 [facility] Neutrophils/100 WBC (Bld) 68.1 % 47-70 [facility] Potassium [Moles/Vol] 4.3 mmol/L 3.5-5.1 [facility] Sodium [Moles/Vol] 141 mmol/L 136-145 [facility] WBC (Bld) [#/Vol] 9.4 10*3/uL 4.4-11.0 [facility] Blood erythrocytes count (nu mber/volume)Ordered By: Dr. Au on 12-28-2022 RBC (Bld) [#/Vol] 3.66 10*6/uL 4.6-6.2 [facility] Blood hemoglobin measurement (mass/volume)Ordered By: Dr. Au on 12-28-2022 Hemoglobin (Bld) [Mass/Vol] 11.5 g/dL 13.0-16.5 [facility] Blood lymphocytes/100 leukoc ytesOrdered By: Dr. Au on 12-28-2022 Lymphocytes/100 WBC (Bld) 21.3 % 19-41 [facility] Blood monocytes/100 leukocyt esOrdered By: Dr. Au on 12-28-2022 Monocytes/100 WBC (Bld) 7.1 % 0-10 [facility] Blood platelet mean volumeOr dered By: Dr. Au on 12-28-2022 Platelet mean volume (Bld) [Entitic vol] 10.4 fL 6.2-12.0 [facility] Determination of erythrocyte mean corpuscular volume (MCV)Ordered By: Dr. Au on 12-28-2022 MCV (RBC) [Entitic vol] 97.0 fL 80-94 [facility] Hematocrit Auto (Bld) [Volum e fraction]Ordered By: Dr. Au on 12-28-2022 Hematocrit (Bld) [Volume fraction] 35.5 % 40-54 [facility] Iron measurement (mass/mass) Ordered By: Dr. Au on 12-28-2022 Iron (Unsp spec) [Mass/Mass] 54 ug/dL 65-175 [facility] Laboratory - Chemistry and C hemistry - challengeOrdered By: Dr. Au on 12-28-2022 CO2 [Moles/Vol] 28.0 mmol/L 21.0-32.0 [facility] Urea nitrogen/Creatinine [Mass ratio] 23.6 mg/mg 10-20 [facility] Laboratory - Hematology and Cell countsOrdered By: Dr. Au on 12-28-2022 Erythrocyte distribution width (RBC) [Entitic vol] 50.2 fL 35.1-43.9 [facility] Erythrocyte distribution width (RBC) [Ratio] 14.3 % 11.6-14.6 [facility] Immature granulocytes/100 WBC (Bld) 0.300 % 0.0-0.9 [facility] Comment on above: IG% - Immature Granu locytes (promyelocytes, myelocytes and metamyelocytes) > 1% indicates that a LEFT SHIFT is Present. MCH (RBC) [Entitic mass] 31.4 pg 27.0-32.0 [facility] Nucleated RBC/100 WBC (Bld) [Ratio] 0 % 0-5 [facility] MCHC Auto (RBC) [Mass/Vol]Or dered By: Dr. Au on 12-28-2022 MCHC (RBC) [Mass/Vol] 32.4 g/dL 32-36 [facility] No Panel InformationOrdered By: Dr. Au on 12-28-2022 Estimated GFR (MDRD) Amer 30 mL/min >60 [facility] Comment on above: GFR Calc Estimated GFR (MDRD) Non-Af Amer 25 mL/min >60 [facility] Comment on above: Non- GFR Calc Total Iron Binding Capacity 244 ug/dL 250-450 [facility] Platelets bldOrdered By: Dr. Au on 12-28-2022 Platelets (Bld) [#/Vol] 148 10*3/uL 150-450 [facility] Serum or plasma albumin aubree urement (mass/volume)Ordered By: Dr. Au on 12-28-2022 Albumin [Mass/Vol] 3.1 g/dL 3.2-5.0 [facility] Serum or plasma calcium aubree urement (mass/volume)Ordered By: Dr. Au on 12-28-2022 Calcium [Mass/Vol] 9.7 mg/dL 8.5-10.1 [facility] Serum or plasma creatinine m easurement (mass/volume)Ordered By: Dr. Au on 12-28-2022 Creatinine [Mass/Vol] 2.63 mg/dL 0.70-1.30 [facility] Comment on above: The validity of the calculated GFR & GFRAA in patients over 70 years has not been determined. Clinical correlation is essential. Serum or plasma ferritin laurie surement (mass/volume)Ordered By: Dr. Au on 12-28-2022 Ferritin [Mass/Vol] 193 ng/mL 26-388 [facility] Serum or plasma iron saturat ion measurement (mass fraction)Ordered By: Dr. Au on 12-28-2022 Iron saturation [Mass fraction] 22.1 % 15.0-55.0 [facility] Serum or plasma urea nitroge n measurement (mass/volume)Ordered By: Dr. Au on 12-28-2022 Urea nitrogen [Mass/Vol] 62 mg/dL 7-18 [facility] Absolute lymphocyte countOrd ered By: Dr. Au on 12-02-2022 Lymphocytes Auto (Unsp spec) [#/Vol] 1.85 10*3/uL 0.83-4.51 [facility] Basophil percentageOrdered B y: Dr. Au on 12-02-2022 Basophil percentage 3.8 mg/dL 2.5-4.9 [facility] Basophils/100 WBC (Bld) 0.4 % 0-1 [facility] Chloride [Moles/Vol] 108 mmol/L 98-107 [facility] Eosinophils/100 WBC (Bld) 2.8 % 0-5 [facility] Glucose [Mass/Vol] 180 mg/dL 74-106 [facility] Comment on above: Fasting Glucose resu lt greater than or equal to 126 mg/dL suggests DIABETES MELLITUS per A.D.A. criteria. Neutrophils (Bld) [#/Vol] 5.7 10*3/uL 2.0-7.7 [facility] Neutrophils/100 WBC (Bld) 67.2 % 47-70 [facility] Potassium [Moles/Vol] 4.3 mmol/L 3.5-5.1 [facility] Sodium [Moles/Vol] 142 mmol/L 136-145 [facility] WBC (Bld) [#/Vol] 8.5 10*3/uL 4.4-11.0 [facility] Blood erythrocytes count (nu mber/volume)Ordered By: Dr. Au on 12-02-2022 RBC (Bld) [#/Vol] 3.44 10*6/uL 4.6-6.2 [facility] Blood hemoglobin measurement (mass/volume)Ordered By: Dr. Au on 12-02-2022 Hemoglobin (Bld) [Mass/Vol] 11.0 g/dL 13.0-16.5 [facility] Blood lymphocytes/100 leukoc ytesOrdered By: Dr. Au on 12-02-2022 Lymphocytes/100 WBC (Bld) 21.8 % 19-41 [facility] Blood monocytes/100 leukocyt esOrdered By: Dr. Au on 12-02-2022 Monocytes/100 WBC (Bld) 7.4 % 0-10 [facility] Blood platelet mean volumeOr dered By: Dr. Au on 12-02-2022 Platelet mean volume (Bld) [Entitic vol] 10.4 fL 6.2-12.0 [facility] Determination of erythrocyte mean corpuscular volume (MCV)Ordered By: Dr. Au on 12-02-2022 MCV (RBC) [Entitic vol] 98.3 fL 80-94 [facility] Hematocrit Auto (Bld) [Volum e fraction]Ordered By: Dr. Au on 12-02-2022 Hematocrit (Bld) [Volume fraction] 33.8 % 40-54 [facility] Iron measurement (mass/mass) Ordered By: Dr. Au on 12-02-2022 Iron (Unsp spec) [Mass/Mass] 64 ug/dL 65-175 [facility] Laboratory - Chemistry and C hemistry - challengeOrdered By: Dr. Au on 12-02-2022 CO2 [Moles/Vol] 31.0 mmol/L 21.0-32.0 [facility] Urea nitrogen/Creatinine [Mass ratio] 23.0 mg/mg 10-20 [facility] Laboratory - Hematology and Cell countsOrdered By: Dr. Au on 12-02-2022 Erythrocyte distribution width (RBC) [Entitic vol] 51.8 fL 35.1-43.9 [facility] Erythrocyte distribution width (RBC) [Ratio] 14.4 % 11.6-14.6 [facility] Immature granulocytes/100 WBC (Bld) 0.400 % 0.0-0.9 [facility] Comment on above: IG% - Immature Granu locytes (promyelocytes, myelocytes and metamyelocytes) > 1% indicates that a LEFT SHIFT is Present. MCH (RBC) [Entitic mass] 32.0 pg 27.0-32.0 [facility] Nucleated RBC/100 WBC (Bld) [Ratio] 0 % 0-5 [facility] MCHC Auto (RBC) [Mass/Vol]Or dered By: Dr. Au on 12-02-2022 MCHC (RBC) [Mass/Vol] 32.5 g/dL 32-36 [facility] No Panel InformationOrdered By: Dr. Au on 12-02-2022 Estimated GFR (MDRD) Amer 29 mL/min >60 [facility] Comment on above: GFR Calc Estimated GFR (MDRD) Non-Af Amer 24 mL/min >60 [facility] Comment on above: Non- GFR Calc Parathyroid Hormone (Intact) 16.7 pg/mL 18.4-80.1 [facility] Total Iron Binding Capacity 230 ug/dL 250-450 [facility] Platelets bldOrdered By: Dr. Au on 12-02-2022 Platelets (Bld) [#/Vol] 158 10*3/uL 150-450 [facility] Serum or plasma albumin aubree urement (mass/volume)Ordered By: Dr. Au on 12-02-2022 Albumin [Mass/Vol] 3.4 g/dL 3.2-5.0 [facility] Serum or plasma calcium aubree urement (mass/volume)Ordered By: Dr. Au on 12-02-2022 Calcium [Mass/Vol] 10.0 mg/dL 8.5-10.1 [facility] Serum or plasma creatinine m easurement (mass/volume)Ordered By: Dr. Au on 12-02-2022 Creatinine [Mass/Vol] 2.74 mg/dL 0.70-1.30 [facility] Comment on above: The validity of the calculated GFR & GFRAA in patients over 70 years has not been determined. Clinical correlation is essential. Serum or plasma ferritin laurie surement (mass/volume)Ordered By: Dr. Au on 12-02-2022 Ferritin [Mass/Vol] 185 ng/mL 26-388 [facility] Serum or plasma iron saturat ion measurement (mass fraction)Ordered By: Dr. Au on 12-02-2022 Iron saturation [Mass fraction] 27.8 % 15.0-55.0 [facility] Serum or plasma urea nitroge n measurement (mass/volume)Ordered By: Dr. Au on 12-02-2022 Urea nitrogen [Mass/Vol] 63 mg/dL 7-18 [facility] Basophil percentageOrdered B y: Dr. Espino on 11-24-2022 Bilirubin [Mass/Vol] 0.90 mg/dL 0.20-1.00 [facility] Comment on above: For patients on eltr ombopag therapy, use of Dimension Latty TBIL is not recommended. Chloride [Moles/Vol] 107 mmol/L 98-107 [facility] Cholesterol [Mass/Vol] 103 mg/dL <200 [facility] Comment on above: <200 mg/dL Desirable 200-240 mg/dL Borderline >240 mg/dL High Risk Glucose [Mass/Vol] 142 mg/dL 74-106 [facility] Comment on above: Fasting Glucose resu lt greater than or equal to 126 mg/dL suggests DIABETES MELLITUS per A.D.A. criteria. Potassium [Moles/Vol] 4.6 mmol/L 3.5-5.1 [facility] Protein [Mass/Vol] 7.6 g/dL 6.4-8.2 [facility] Sodium [Moles/Vol] 142 mmol/L 136-145 [facility] Triglyceride [Mass/Vol] 141 mg/dL <199 [facility] Comment on above: The drugs N-Acetylcy steine and Metamizole may falsely depress this assay.Serum Triglycerides Reference Interval Normal <150 mg/dL Borderline high 150 - 199 mg/dL High 200 - 499 mg/dL Very High > or = 500 mg/dL WBC (Bld) [#/Vol] 9.1 10*3/uL 4.4-11.0 [facility] Blood erythrocytes count (nu mber/volume)Ordered By: Dr. Espino on 11-24-2022 RBC (Bld) [#/Vol] 3.51 10*6/uL 4.6-6.2 [facility] Blood hemoglobin measurement (mass/volume)Ordered By: Dr. Epsino on 11-24-2022 Hemoglobin (Bld) [Mass/Vol] 11.3 g/dL 13.0-16.5 [facility] Blood platelet mean volumeOr dered By: Dr. Espino on 11-24-2022 Platelet mean volume (Bld) [Entitic vol] 11.1 fL 6.2-12.0 [facility] Determination of erythrocyte mean corpuscular volume (MCV)Ordered By: Dr. Espino on 11-24-2022 MCV (RBC) [Entitic vol] 99.7 fL 80-94 [facility] Hematocrit Auto (Bld) [Volum e fraction]Ordered By: Dr. Espino on 11-24-2022 Hematocrit (Bld) [Volume fraction] 35.0 % 40-54 [facility] Laboratory - Chemistry and C hemistry - challengeOrdered By: Dr. Espino on 11-24-2022 ALP [Catalytic activity/Vol] 135 U/L 45-117 [facility] ALT [Catalytic activity/Vol] 17 U/L 16-61 [facility] CO2 [Moles/Vol] 30.0 mmol/L 21.0-32.0 [facility] Globulin (S) [Mass/Vol] 4.3 g/dL 2.2-4.2 [facility] Urea nitrogen/Creatinine [Mass ratio] 23.0 mg/mg 10-20 [facility] Laboratory - Hematology and Cell countsOrdered By: Dr. Espino on 11-24-2022 Erythrocyte distribution width (RBC) [Entitic vol] 52.0 fL 35.1-43.9 [facility] Erythrocyte distribution width (RBC) [Ratio] 14.4 % 11.6-14.6 [facility] MCH (RBC) [Entitic mass] 32.2 pg 27.0-32.0 [facility] MCHC Auto (RBC) [Mass/Vol]Or dered By: Dr. Espino on 11-24-2022 MCHC (RBC) [Mass/Vol] 32.3 g/dL 32-36 [facility] No Panel InformationOrdered By: Dr. Espino on 11-24-2022 Estimated GFR (MDRD) Amer 33 mL/min >60 [facility] Comment on above: GFR Calc Estimated GFR (MDRD) Non-Af Amer 27 mL/min >60 [facility] Comment on above: Non- GFR Calc Thyroid Stimulating Hormone (TSH) 5.30 uIU/mL 0.358-3.74 [facility] Platelets bldOrdered By: Dr. Espino on 11-24-2022 Platelets (Bld) [#/Vol] 148 10*3/uL 150-450 [facility] Serum or plasma albumin aubree urement (mass/volume)Ordered By: Dr. Espino on 11-24-2022 Albumin [Mass/Vol] 3.3 g/dL 3.2-5.0 [facility] Serum or plasma albumin/glob ulin mass ratioOrdered By: Dr. Espino on 11-24-2022 Albumin/Globulin [Mass ratio] 0.8 {ratio} 0.9-2.4 [facility] Serum or plasma calcium aubree urement (mass/volume)Ordered By: Dr. Espino on 11-24-2022 Calcium [Mass/Vol] 9.0 mg/dL 8.5-10.1 [facility] Serum or plasma cholesterol in HDL measurement (mass/volume)Ordered By: Dr. Espino on 11-24-2022 Cholesterol in HDL [Mass/Vol] 29 mg/dL >40 [facility] Comment on above: The drugs N-Acetylcy steine and Metamizole may falsely depress this assay. Reference Range HDL <40 mg/dL Low HDL Cholesterol HDL >or= 60 mg/dL High HDL Cholesterol Serum or plasma cholesterol in VLDL measurement (mass/volume)Ordered By: Dr. Espino on 11-24-2022 Cholesterol in VLDL [Mass/Vol] 28 mg/dL 5-40 [facility] Serum or plasma creatinine m easurement (mass/volume)Ordered By: Dr. Espino on 11-24-2022 Creatinine [Mass/Vol] 2.44 mg/dL 0.70-1.30 [facility] Comment on above: The validity of the calculated GFR & GFRAA in patients over 70 years has not been determined. Clinical correlation is essential. Serum or plasma low density lipoprotein (LDL) cholesterol measurement (mass/volume)Ordered By: Dr. Espino on 11-24-2022 Cholesterol in LDL [Mass/Vol] 46 mg/dL 0-130 [facility] Serum or plasma urea nitroge n measurement (mass/volume)Ordered By: Dr. Espino on 11-24-2022 Urea nitrogen [Mass/Vol] 56 mg/dL 7-18 [facility] Thin prep Papanicolaou smear with manual screeningOrdered By: Dr. Espino on 11-24-2022 Thin prep Papanicolaou smear with manual screening 19 U/L 15-37 [facility] Thin prep Papanicolaou smear with manual screening 5 5-15 [facility] Whole blood hemoglobin A1c/t otal hemoglobin ratio (mass fraction)Ordered By: Dr. Espino on 11-24-2022 HbA1c (Bld) [Mass fraction] 5.8 % 3.8-5.6 [facility] Comment on above: Normal < 5.7 % Predi abetic 5.7 - 6.4 % Diabetic >or= 6.5 % Please note range changes. Absolute lymphocyte countOrd ered By: Dr. Au on 11-01-2022 Lymphocytes Auto (Unsp spec) [#/Vol] 2.34 10*3/uL 0.83-4.51 [facility] Basophil percentageOrdered B y: Dr. Au on 11-01-2022 Basophil percentage 3.7 mg/dL 2.5-4.9 [facility] Basophils/100 WBC (Bld) 0.4 % 0-1 [facility] Chloride [Moles/Vol] 105 mmol/L 98-107 [facility] Eosinophils/100 WBC (Bld) 2.1 % 0-5 [facility] Glucose [Mass/Vol] 168 mg/dL 74-106 [facility] Comment on above: Fasting Glucose resu lt greater than or equal to 126 mg/dL suggests DIABETES MELLITUS per A.D.A. criteria. Neutrophils (Bld) [#/Vol] 7.0 10*3/uL 2.0-7.7 [facility] Neutrophils/100 WBC (Bld) 67.9 % 47-70 [facility] Potassium [Moles/Vol] 4.0 mmol/L 3.5-5.1 [facility] Sodium [Moles/Vol] 140 mmol/L 136-145 [facility] WBC (Bld) [#/Vol] 10.3 10*3/uL 4.4-11.0 [facility] Blood erythrocytes count (nu mber/volume)Ordered By: Dr. Au on 11-01-2022 RBC (Bld) [#/Vol] 3.58 10*6/uL 4.6-6.2 [facility] Blood hemoglobin measurement (mass/volume)Ordered By: Dr. Au on 11-01-2022 Hemoglobin (Bld) [Mass/Vol] 11.2 g/dL 13.0-16.5 [facility] Blood lymphocytes/100 leukoc ytesOrdered By: Dr. Au on 11-01-2022 Lymphocytes/100 WBC (Bld) 22.7 % 19-41 [facility] Blood monocytes/100 leukocyt esOrdered By: Dr. Au on 11-01-2022 Monocytes/100 WBC (Bld) 6.5 % 0-10 [facility] Blood platelet mean volumeOr dered By: Dr. Au on 11-01-2022 Platelet mean volume (Bld) [Entitic vol] 10.0 fL 6.2-12.0 [facility] Determination of erythrocyte mean corpuscular volume (MCV)Ordered By: Dr. Au on 11-01-2022 MCV (RBC) [Entitic vol] 99.2 fL 80-94 [facility] Hematocrit Auto (Bld) [Volum e fraction]Ordered By: Dr. Au on 11-01-2022 Hematocrit (Bld) [Volume fraction] 35.5 % 40-54 [facility] Iron measurement (mass/mass) Ordered By: Dr. Au on 11-01-2022 Iron (Unsp spec) [Mass/Mass] 69 ug/dL 65-175 [facility] Laboratory - Chemistry and C hemistry - challengeOrdered By: Dr. Au on 11-01-2022 CO2 [Moles/Vol] 29.0 mmol/L 21.0-32.0 [facility] Urea nitrogen/Creatinine [Mass ratio] 21.5 mg/mg 10-20 [facility] Laboratory - Hematology and Cell countsOrdered By: Dr. Au on 11-01-2022 Erythrocyte distribution width (RBC) [Entitic vol] 51.2 fL 35.1-43.9 [facility] Erythrocyte distribution width (RBC) [Ratio] 14.4 % 11.6-14.6 [facility] Immature granulocytes/100 WBC (Bld) 0.400 % 0.0-0.9 [facility] Comment on above: IG% - Immature Granu locytes (promyelocytes, myelocytes and metamyelocytes) > 1% indicates that a LEFT SHIFT is Present. MCH (RBC) [Entitic mass] 31.3 pg 27.0-32.0 [facility] Nucleated RBC/100 WBC (Bld) [Ratio] 0 % 0-5 [facility] MCHC Auto (RBC) [Mass/Vol]Or dered By: Dr. Au on 11-01-2022 MCHC (RBC) [Mass/Vol] 31.5 g/dL 32-36 [facility] No Panel InformationOrdered By: Dr. Au on 11-01-2022 Estimated GFR (MDRD) Amer 30 mL/min >60 [facility] Comment on above: GFR Calc Estimated GFR (MDRD) Non-Af Amer 25 mL/min >60 [facility] Comment on above: Non- GFR Calc Total Iron Binding Capacity 228 ug/dL 250-450 [facility] Platelets bldOrdered By: Dr. Au on 11-01-2022 Platelets (Bld) [#/Vol] 155 10*3/uL 150-450 [facility] Serum or plasma albumin aubree urement (mass/volume)Ordered By: Dr. Au on 11-01-2022 Albumin [Mass/Vol] 3.3 g/dL 3.2-5.0 [facility] Serum or plasma calcium aubree urement (mass/volume)Ordered By: Dr. Au on 11-01-2022 Calcium [Mass/Vol] 9.6 mg/dL 8.5-10.1 [facility] Serum or plasma creatinine m easurement (mass/volume)Ordered By: Dr. Au on 11-01-2022 Creatinine [Mass/Vol] 2.61 mg/dL 0.70-1.30 [facility] Comment on above: The validity of the calculated GFR & GFRAA in patients over 70 years has not been determined. Clinical correlation is essential. Serum or plasma ferritin laurie surement (mass/volume)Ordered By: Dr. Au on 11-01-2022 Ferritin [Mass/Vol] 166 ng/mL 26-388 [facility] Serum or plasma iron saturat ion measurement (mass fraction)Ordered By: Dr. Au on 11-01-2022 Iron saturation [Mass fraction] 30.3 % 15.0-55.0 [facility] Serum or plasma urea nitroge n measurement (mass/volume)Ordered By: Dr. Au on 11-01-2022 Urea nitrogen [Mass/Vol] 56 mg/dL 7-18 [facility] Absolute lymphocyte countOrd ered By: Dr. Au on 10-04-2022 Lymphocytes Auto (Unsp spec) [#/Vol] 1.62 10*3/uL 0.83-4.51 [facility] Basophil percentageOrdered B y: Dr. Au on 10-04-2022 Basophil percentage 2.5 mg/dL 2.5-4.9 [facility] Basophils/100 WBC (Bld) 0.3 % 0-1 [facility] Chloride [Moles/Vol] 107 mmol/L 98-107 [facility] Eosinophils/100 WBC (Bld) 2.3 % 0-5 [facility] Glucose [Mass/Vol] 180 mg/dL 74-106 [facility] Comment on above: Fasting Glucose resu lt greater than or equal to 126 mg/dL suggests DIABETES MELLITUS per A.D.A. criteria. Neutrophils (Bld) [#/Vol] 6.5 10*3/uL 2.0-7.7 [facility] Neutrophils/100 WBC (Bld) 73.0 % 47-70 [facility] Potassium [Moles/Vol] 4.3 mmol/L 3.5-5.1 [facility] Sodium [Moles/Vol] 140 mmol/L 136-145 [facility] WBC (Bld) [#/Vol] 9.0 10*3/uL 4.4-11.0 [facility] Blood erythrocytes count (nu mber/volume)Ordered By: Dr. Au on 10-04-2022 RBC (Bld) [#/Vol] 3.42 10*6/uL 4.6-6.2 [facility] Blood hemoglobin measurement (mass/volume)Ordered By: Dr. Au on 10-04-2022 Hemoglobin (Bld) [Mass/Vol] 10.7 g/dL 13.0-16.5 [facility] Blood lymphocytes/100 leukoc ytesOrdered By: Dr. Au on 10-04-2022 Lymphocytes/100 WBC (Bld) 18.1 % 19-41 [facility] Blood monocytes/100 leukocyt esOrdered By: Dr. Au on 10-04-2022 Monocytes/100 WBC (Bld) 6.0 % 0-10 [facility] Blood platelet mean volumeOr dered By: Dr. Au on 10-04-2022 Platelet mean volume (Bld) [Entitic vol] 10.7 fL 6.2-12.0 [facility] Determination of erythrocyte mean corpuscular volume (MCV)Ordered By: Dr. Au on 10-04-2022 MCV (RBC) [Entitic vol] 98.8 fL 80-94 [facility] Hematocrit Auto (Bld) [Volum e fraction]Ordered By: Dr. Au on 10-04-2022 Hematocrit (Bld) [Volume fraction] 33.8 % 40-54 [facility] Iron measurement (mass/mass) Ordered By: Dr. Au on 10-04-2022 Iron (Unsp spec) [Mass/Mass] 56 ug/dL 65-175 [facility] Laboratory - Chemistry and C hemistry - challengeOrdered By: Dr. Au on 10-04-2022 CO2 [Moles/Vol] 29.0 mmol/L 21.0-32.0 [facility] Urea nitrogen/Creatinine [Mass ratio] 19.6 mg/mg 10-20 [facility] Laboratory - Hematology and Cell countsOrdered By: Dr. Au on 10-04-2022 Erythrocyte distribution width (RBC) [Entitic vol] 52.6 fL 35.1-43.9 [facility] Erythrocyte distribution width (RBC) [Ratio] 14.6 % 11.6-14.6 [facility] Immature granulocytes/100 WBC (Bld) 0.300 % 0.0-0.9 [facility] Comment on above: IG% - Immature Granu locytes (promyelocytes, myelocytes and metamyelocytes) > 1% indicates that a LEFT SHIFT is Present. MCH (RBC) [Entitic mass] 31.3 pg 27.0-32.0 [facility] Nucleated RBC/100 WBC (Bld) [Ratio] 0 % 0-5 [facility] MCHC Auto (RBC) [Mass/Vol]Or dered By: Dr. Au on 10-04-2022 MCHC (RBC) [Mass/Vol] 31.7 g/dL 32-36 [facility] No Panel InformationOrdered By: Dr. Au on 10-04-2022 Estimated GFR (MDRD) Amer 34 mL/min >60 [facility] Comment on above: GFR Calc Estimated GFR (MDRD) Non-Af Amer 28 mL/min >60 [facility] Comment on above: Non- GFR Calc Total Iron Binding Capacity 276 ug/dL 250-450 [facility] Platelets bldOrdered By: Dr. Au on 10-04-2022 Platelets (Bld) [#/Vol] 145 10*3/uL 150-450 [facility] Serum or plasma albumin aubree urement (mass/volume)Ordered By: Dr. Au on 10-04-2022 Albumin [Mass/Vol] 3.0 g/dL 3.2-5.0 [facility] Serum or plasma calcium aubree urement (mass/volume)Ordered By: Dr. Au on 10-04-2022 Calcium [Mass/Vol] 9.1 mg/dL 8.5-10.1 [facility] Serum or plasma creatinine m easurement (mass/volume)Ordered By: Dr. Au on 10-04-2022 Creatinine [Mass/Vol] 2.35 mg/dL 0.70-1.30 [facility] Comment on above: The validity of the calculated GFR & GFRAA in patients over 70 years has not been determined. Clinical correlation is essential. Serum or plasma ferritin laurie surement (mass/volume)Ordered By: Dr. Au on 10-04-2022 Ferritin [Mass/Vol] 205 ng/mL 26-388 [facility] Serum or plasma iron saturat ion measurement (mass fraction)Ordered By: Dr. Au on 10-04-2022 Iron saturation [Mass fraction] 20.3 % 15.0-55.0 [facility] Serum or plasma urea nitroge n measurement (mass/volume)Ordered By: Dr. Au on 10-04-2022 Urea nitrogen [Mass/Vol] 46 mg/dL 7-18 [facility] Absolute lymphocyte countOrd ered By: Dr. Au on 09-29-2022 Lymphocytes Auto (Unsp spec) [#/Vol] 1.94 10*3/uL 0.83-4.51 [facility] Basophil percentageOrdered B y: Dr. Au on 09-29-2022 Basophil percentage 3.0 mg/dL 2.5-4.9 [facility] Basophils/100 WBC (Bld) 0.4 % 0-1 [facility] Chloride [Moles/Vol] 105 mmol/L 98-107 [facility] Eosinophils/100 WBC (Bld) 2.3 % 0-5 [facility] Glucose [Mass/Vol] 121 mg/dL 74-106 [facility] Comment on above: Fasting Glucose resu lt from 100 to 125 mg/dL suggests IMPAIRED HOMEOSTASIS per A.D.A. criteria. Neutrophils (Bld) [#/Vol] 6.8 10*3/uL 2.0-7.7 [facility] Neutrophils/100 WBC (Bld) 70.7 % 47-70 [facility] Potassium [Moles/Vol] 4.0 mmol/L 3.5-5.1 [facility] Sodium [Moles/Vol] 139 mmol/L 136-145 [facility] WBC (Bld) [#/Vol] 9.6 10*3/uL 4.4-11.0 [facility] Blood erythrocytes count (nu mber/volume)Ordered By: Dr. Au on 09-29-2022 RBC (Bld) [#/Vol] 3.42 10*6/uL 4.6-6.2 [facility] Blood hemoglobin measurement (mass/volume)Ordered By: Dr. Au on 09-29-2022 Hemoglobin (Bld) [Mass/Vol] 10.9 g/dL 13.0-16.5 [facility] Blood lymphocytes/100 leukoc ytesOrdered By: Dr. Au on 09-29-2022 Lymphocytes/100 WBC (Bld) 20.2 % 19-41 [facility] Blood monocytes/100 leukocyt esOrdered By: Dr. Au on 09-29-2022 Monocytes/100 WBC (Bld) 5.9 % 0-10 [facility] Blood platelet mean volumeOr dered By: Dr. Au on 09-29-2022 Platelet mean volume (Bld) [Entitic vol] 10.8 fL 6.2-12.0 [facility] Determination of erythrocyte mean corpuscular volume (MCV)Ordered By: Dr. Au on 09-29-2022 MCV (RBC) [Entitic vol] 100.3 fL 80-94 [facility] Hematocrit Auto (Bld) [Volum e fraction]Ordered By: Dr. Au on 09-29-2022 Hematocrit (Bld) [Volume fraction] 34.3 % 40-54 [facility] Iron measurement (mass/mass) Ordered By: Dr. Au on 09-29-2022 Iron (Unsp spec) [Mass/Mass] 58 ug/dL 65-175 [facility] Laboratory - Chemistry and C hemistry - challengeOrdered By: Dr. Au on 09-29-2022 CO2 [Moles/Vol] 29.0 mmol/L 21.0-32.0 [facility] Urea nitrogen/Creatinine [Mass ratio] 23.3 mg/mg 10-20 [facility] Laboratory - Hematology and Cell countsOrdered By: Dr. Au on 09-29-2022 Erythrocyte distribution width (RBC) [Entitic vol] 53.1 fL 35.1-43.9 [facility] Erythrocyte distribution width (RBC) [Ratio] 14.7 % 11.6-14.6 [facility] Immature granulocytes/100 WBC (Bld) 0.500 % 0.0-0.9 [facility] Comment on above: IG% - Immature Granu locytes (promyelocytes, myelocytes and metamyelocytes) > 1% indicates that a LEFT SHIFT is Present. MCH (RBC) [Entitic mass] 31.9 pg 27.0-32.0 [facility] Nucleated RBC/100 WBC (Bld) [Ratio] 0 % 0-5 [facility] MCHC Auto (RBC) [Mass/Vol]Or dered By: Dr. Au on 09-29-2022 MCHC (RBC) [Mass/Vol] 31.8 g/dL 32-36 [facility] No Panel InformationOrdered By: Dr. Au on 09-29-2022 Estimated GFR (MDRD) Amer 36 mL/min >60 [facility] Comment on above: GFR Calc Estimated GFR (MDRD) Non-Af Amer 30 mL/min >60 [facility] Comment on above: Non- GFR Calc Parathyroid Hormone (Intact) 113.6 pg/mL 18.4-80.1 [facility] Total Iron Binding Capacity 220 ug/dL 250-450 [facility] Platelets bldOrdered By: Dr. Au on 09-29-2022 Platelets (Bld) [#/Vol] 163 10*3/uL 150-450 [facility] Serum or plasma albumin aubree urement (mass/volume)Ordered By: Dr. Au on 09-29-2022 Albumin [Mass/Vol] 3.0 g/dL 3.2-5.0 [facility] Serum or plasma calcium aubree urement (mass/volume)Ordered By: Dr. Au on 09-29-2022 Calcium [Mass/Vol] 8.8 mg/dL 8.5-10.1 [facility] Serum or plasma creatinine m easurement (mass/volume)Ordered By: Dr. Au on 09-29-2022 Creatinine [Mass/Vol] 2.27 mg/dL 0.70-1.30 [facility] Comment on above: The validity of the calculated GFR & GFRAA in patients over 70 years has not been determined. Clinical correlation is essential. Serum or plasma ferritin laurie surement (mass/volume)Ordered By: Dr. Au on 09-29-2022 Ferritin [Mass/Vol] 185 ng/mL 26-388 [facility] Serum or plasma iron saturat ion measurement (mass fraction)Ordered By: Dr. Au on 09-29-2022 Iron saturation [Mass fraction] 26.4 % 15.0-55.0 [facility] Serum or plasma urea nitroge n measurement (mass/volume)Ordered By: Dr. Au on 09-29-2022 Urea nitrogen [Mass/Vol] 53 mg/dL 7-18 [facility] Serum or plasma uric acid me asurement (mass/volume)Ordered By: Dr. Au on 09-29-2022 Urate [Mass/Vol] 6.3 mg/dL 3.5-7.2 [facility] Comment on above: The drugs N-Acetylcy steine and Metamizole may falsely depress this assay. Urine creatinine measurement (mass/volume)Ordered By: Dr. Au on 09-29-2022 Creatinine (U) [Mass/Vol] 54.30 mg/dL NO RANGE EST. [facility] Urine protein measurement (m ass/volume)Ordered By: Dr. Au on 09-29-2022 Protein (U) [Mass/Vol] 55.8 mg/dL 0.0-11.8 [facility] Urine protein/creatinine mas s ratioOrdered By: Dr. Au on 09-29-2022 Protein/Creatinine (U) [Mass ratio] 1028 mg/g CRE 0-200 [facility] Absolute lymphocyte countOrd ered By: Dr. Au on 09-06-2022 Lymphocytes Auto (Unsp spec) [#/Vol] 1.88 10*3/uL 0.83-4.51 [facility] Basophil percentageOrdered B y: Dr. Au on 09-06-2022 Basophil percentage 3.0 mg/dL 2.5-4.9 [facility] Basophils/100 WBC (Bld) 0.4 % 0-1 [facility] Chloride [Moles/Vol] 106 mmol/L 98-107 [facility] Eosinophils/100 WBC (Bld) 2.5 % 0-5 [facility] Glucose [Mass/Vol] 104 mg/dL 74-106 [facility] Comment on above: Fasting Glucose resu lt from 100 to 125 mg/dL suggests IMPAIRED HOMEOSTASIS per A.D.A. criteria. Neutrophils (Bld) [#/Vol] 7.0 10*3/uL 2.0-7.7 [facility] Neutrophils/100 WBC (Bld) 69.8 % 47-70 [facility] Potassium [Moles/Vol] 3.9 mmol/L 3.5-5.1 [facility] Sodium [Moles/Vol] 141 mmol/L 136-145 [facility] WBC (Bld) [#/Vol] 10.0 10*3/uL 4.4-11.0 [facility] Blood erythrocytes count (nu mber/volume)Ordered By: Dr. Au on 09-06-2022 RBC (Bld) [#/Vol] 3.44 10*6/uL 4.6-6.2 [facility] Blood hemoglobin measurement (mass/volume)Ordered By: Dr. Au on 09-06-2022 Hemoglobin (Bld) [Mass/Vol] 10.6 g/dL 13.0-16.5 [facility] Blood lymphocytes/100 leukoc ytesOrdered By: Dr. Au on 09-06-2022 Lymphocytes/100 WBC (Bld) 18.9 % 19-41 [facility] Blood monocytes/100 leukocyt esOrdered By: Dr. Au on 09-06-2022 Monocytes/100 WBC (Bld) 7.9 % 0-10 [facility] Blood platelet mean volumeOr dered By: Dr. Au on 09-06-2022 Platelet mean volume (Bld) [Entitic vol] 10.5 fL 6.2-12.0 [facility] Determination of erythrocyte mean corpuscular volume (MCV)Ordered By: Dr. Au on 09-06-2022 MCV (RBC) [Entitic vol] 98.5 fL 80-94 [facility] Hematocrit Auto (Bld) [Volum e fraction]Ordered By: Dr. Au on 09-06-2022 Hematocrit (Bld) [Volume fraction] 33.9 % 40-54 [facility] Iron measurement (mass/mass) Ordered By: Dr. Au on 09-06-2022 Iron (Unsp spec) [Mass/Mass] 52 ug/dL 65-175 [facility] Laboratory - Chemistry and C hemistry - challengeOrdered By: Dr. Au on 09-06-2022 CO2 [Moles/Vol] 30.0 mmol/L 21.0-32.0 [facility] Urea nitrogen/Creatinine [Mass ratio] 21.3 mg/mg 10-20 [facility] Laboratory - Hematology and Cell countsOrdered By: Dr. uA on 09-06-2022 Erythrocyte distribution width (RBC) [Entitic vol] 51.6 fL 35.1-43.9 [facility] Erythrocyte distribution width (RBC) [Ratio] 14.4 % 11.6-14.6 [facility] Immature granulocytes/100 WBC (Bld) 0.500 % 0.0-0.9 [facility] Comment on above: IG% - Immature Granu locytes (promyelocytes, myelocytes and metamyelocytes) > 1% indicates that a LEFT SHIFT is Present. MCH (RBC) [Entitic mass] 30.8 pg 27.0-32.0 [facility] Nucleated RBC/100 WBC (Bld) [Ratio] 0 % 0-5 [facility] MCHC Auto (RBC) [Mass/Vol]Or dered By: Dr. Au on 09-06-2022 MCHC (RBC) [Mass/Vol] 31.3 g/dL 32-36 [facility] No Panel InformationOrdered By: Dr. Au on 09-06-2022 Estimated GFR (MDRD) Amer 32 mL/min >60 [facility] Comment on above: GFR Calc Estimated GFR (MDRD) Non-Af Amer 26 mL/min >60 [facility] Comment on above: Non- GFR Calc Parathyroid Hormone (Intact) 33.7 pg/mL 18.4-80.1 [facility] Total Iron Binding Capacity 215 ug/dL 250-450 [facility] Platelets bldOrdered By: Dr. Au on 09-06-2022 Platelets (Bld) [#/Vol] 155 10*3/uL 150-450 [facility] Serum or plasma albumin aubree urement (mass/volume)Ordered By: Dr. Au on 09-06-2022 Albumin [Mass/Vol] 2.9 g/dL 3.2-5.0 [facility] Serum or plasma calcium aubree urement (mass/volume)Ordered By: Dr. Au on 09-06-2022 Calcium [Mass/Vol] 9.2 mg/dL 8.5-10.1 [facility] Serum or plasma creatinine m easurement (mass/volume)Ordered By: Dr. Au on 09-06-2022 Creatinine [Mass/Vol] 2.53 mg/dL 0.70-1.30 [facility] Comment on above: The validity of the calculated GFR & GFRAA in patients over 70 years has not been determined. Clinical correlation is essential. Serum or plasma ferritin laurie surement (mass/volume)Ordered By: Dr. Au on 09-06-2022 Ferritin [Mass/Vol] 172 ng/mL 26-388 [facility] Serum or plasma iron saturat ion measurement (mass fraction)Ordered By: Dr. Au on 09-06-2022 Iron saturation [Mass fraction] 24.2 % 15.0-55.0 [facility] Serum or plasma urea nitroge n measurement (mass/volume)Ordered By: Dr. Au on 09-06-2022 Urea nitrogen [Mass/Vol] 54 mg/dL 7-18 [facility] Basophil percentageOrdered B y: Dr. Espino on 08-27-2022 Bilirubin [Mass/Vol] 0.90 mg/dL 0.20-1.00 [facility] Comment on above: For patients on eltr ombopag therapy, use of Dimension Latty TBIL is not recommended. Chloride [Moles/Vol] 103 mmol/L 98-107 [facility] Glucose [Mass/Vol] 114 mg/dL 74-106 [facility] Comment on above: Fasting Glucose resu lt from 100 to 125 mg/dL suggests IMPAIRED HOMEOSTASIS per A.D.A. criteria. Potassium [Moles/Vol] 4.1 mmol/L 3.5-5.1 [facility] Protein [Mass/Vol] 8.0 g/dL 6.4-8.2 [facility] Sodium [Moles/Vol] 141 mmol/L 136-145 [facility] WBC (Bld) [#/Vol] 9.5 10*3/uL 4.4-11.0 [facility] Blood erythrocytes count (nu mber/volume)Ordered By: Dr. Espino on 08-27-2022 RBC (Bld) [#/Vol] 3.64 10*6/uL 4.6-6.2 [facility] Blood hemoglobin measurement (mass/volume)Ordered By: Dr. Espino on 08-27-2022 Hemoglobin (Bld) [Mass/Vol] 11.3 g/dL 13.0-16.5 [facility] Blood platelet mean volumeOr dered By: Dr. Espino on 08-27-2022 Platelet mean volume (Bld) [Entitic vol] 10.9 fL 6.2-12.0 [facility] Determination of erythrocyte mean corpuscular volume (MCV)Ordered By: Dr. Espino on 08-27-2022 MCV (RBC) [Entitic vol] 99.5 fL 80-94 [facility] Hematocrit Auto (Bld) [Volum e fraction]Ordered By: Dr. Espino on 08-27-2022 Hematocrit (Bld) [Volume fraction] 36.2 % 40-54 [facility] Laboratory - Chemistry and C hemistry - challengeOrdered By: Dr. Espino on 08-27-2022 ALP [Catalytic activity/Vol] 127 U/L 45-117 [facility] ALT [Catalytic activity/Vol] 19 U/L 16-61 [facility] CO2 [Moles/Vol] 32.0 mmol/L 21.0-32.0 [facility] Globulin (S) [Mass/Vol] 5.0 g/dL 2.2-4.2 [facility] Urea nitrogen/Creatinine [Mass ratio] 17.8 mg/mg 10-20 [facility] Laboratory - Hematology and Cell countsOrdered By: Dr. Espino on 08-27-2022 Erythrocyte distribution width (RBC) [Entitic vol] 51.9 fL 35.1-43.9 [facility] Erythrocyte distribution width (RBC) [Ratio] 14.4 % 11.6-14.6 [facility] MCH (RBC) [Entitic mass] 31.0 pg 27.0-32.0 [facility] MCHC Auto (RBC) [Mass/Vol]Or dered By: Dr. Espino on 08-27-2022 MCHC (RBC) [Mass/Vol] 31.2 g/dL 32-36 [facility] No Panel InformationOrdered By: Dr. Espino on 08-27-2022 Estimated GFR (MDRD) Amer 29 mL/min >60 [facility] Comment on above: GFR Calc Estimated GFR (MDRD) Non-Af Amer 24 mL/min >60 [facility] Comment on above: Non- GFR Calc Platelets bldOrdered By: Dr. Espino on 08-27-2022 Platelets (Bld) [#/Vol] 147 10*3/uL 150-450 [facility] Serum or plasma albumin aubree urement (mass/volume)Ordered By: Dr. Espino on 08-27-2022 Albumin [Mass/Vol] 3.0 g/dL 3.2-5.0 [facility] Serum or plasma albumin/glob ulin mass ratioOrdered By: Dr. Espino on 08-27-2022 Albumin/Globulin [Mass ratio] 0.6 {ratio} 0.9-2.4 [facility] Serum or plasma calcium aubree urement (mass/volume)Ordered By: Dr. Espino on 08-27-2022 Calcium [Mass/Vol] 9.5 mg/dL 8.5-10.1 [facility] Serum or plasma creatinine m easurement (mass/volume)Ordered By: Dr. Espino on 08-27-2022 Creatinine [Mass/Vol] 2.69 mg/dL 0.70-1.30 [facility] Comment on above: The validity of the calculated GFR & GFRAA in patients over 70 years has not been determined. Clinical correlation is essential. Serum or plasma urea nitroge n measurement (mass/volume)Ordered By: Dr. Espino on 08-27-2022 Urea nitrogen [Mass/Vol] 48 mg/dL 7-18 [facility] Thin prep Papanicolaou smear with manual screeningOrdered By: Dr. Espino on 08-27-2022 Thin prep Papanicolaou smear with manual screening 20 U/L 15-37 [facility] Thin prep Papanicolaou smear with manual screening 6 5-15 [facility] Whole blood hemoglobin A1c/t otal hemoglobin ratio (mass fraction)Ordered By: Dr. Espino on 08-27-2022 HbA1c (Bld) [Mass fraction] 6.3 % 3.8-5.6 [facility] Comment on above: Normal < 5.7 % Predi abetic 5.7 - 6.4 % Diabetic >or= 6.5 % Please note range changes. Absolute lymphocyte counton 08-09-2022 Lymphocytes Auto (Unsp spec) [#/Vol] 2.02 10*3/uL 0.83-4.51 [facility] Work Phone: Basophil percentageon 2021 Basophil percentage 3.8 mg/dL 2.5-4.9 [facility] Work Phone: Basophils/100 WBC (Bld) 0.2 % 0-1 [facility] Work Phone: Chloride [Moles/Vol] 106 mmol[facility]L 98-107 [facility]: Eosinophils/100 WBC (Bld) 3.5 % 0-5 [facility] Work Phone: Glucose [Mass/Vol] 114 mg/dL 74-106 [facility] Work Phone: Comment on above: Fasting Glucose resu lt from 100 to 125 mg/dL suggests IMPAIRED HOMEOSTASIS per A.D.A. criteria. Neutrophils (Bld) [#/Vol] 6.9 10*3/uL 2.0-7.7 [facility] Work Phone: Neutrophils/100 WBC (Bld) 68.8 % 47-70 [facility] Work Phone: Potassium [Moles/Vol] 4.3 mmol/L 3.5-5.1 [facility] Work Phone: Sodium [Moles/Vol] 141 mmol/L 136-145 [facility] Work Phone: WBC (Bld) [#/Vol] 10.0 10*3/uL 4.4-11.0 [facility] Work Phone: Blood erythrocytes count (nu mber/volume)on 08-09-2022 RBC (Bld) [#/Vol] 3.45 10*6/uL 4.6-6.2 [facility] Work Phone: Blood hemoglobin measurement (mass/volume)on 08-09-2022 Hemoglobin (Bld) [Mass/Vol] 11.2 g/dL 13.0-16.5 [facility] Work Phone: Blood lymphocytes/100 leukoc yteson 08-09-2022 Lymphocytes/100 WBC (Bld) 20.2 % 19-41 [facility] Work Phone: Blood monocytes/100 leukocyt eson 08-09-2022 Monocytes/100 WBC (Bld) 6.9 % 0-10 [facility] Work Phone: Blood platelet mean volumeon 08-09-2022 Platelet mean volume (Bld) [Entitic vol] 10.0 fL 6.2-12.0 [facility] Work Phone: [phone] Determination of erythrocyte mean corpuscular volume (MCV)on 08-09-2022 MCV (RBC) [Entitic vol] 98.6 fL 80-94 [facility] Work Phone: [phone] Hematocrit Auto (Bld) [Volum e fraction]on 08-09-2022 Hematocrit (Bld) [Volume fraction] 34.0 % 40-54 [facility] Work Phone: [phone] Iron measurement (mass/mass) on 08-09-2022 Iron (Unsp spec) [Mass/Mass] 74 ug/dL 65-175 [facility] Work Phone: Laboratory - Chemistry and C hemistry - challengeon 08-09-2022 CO2 [Moles/Vol] 29.0 mmol/L 21.0-32.0 [facility] Work Phone: [phone] Urea nitrogen/Creatinine [Mass ratio] 24.0 mg/mg 10-20 [facility] Work Phone: [phone] Laboratory - Hematology and Cell countson 08-09-2022 Erythrocyte distribution width (RBC) [Entitic vol] 52.4 fL 35.1-43.9 [facility] Work Phone: [phone] Erythrocyte distribution width (RBC) [Ratio] 14.6 % 11.6-14.6 [facility] Work Phone: [phone] Immature granulocytes/100 WBC (Bld) 0.400 % 0.0-0.9 [facility] Work Phone: [phone] Comment on above: IG% - Immature Granu locytes (promyelocytes, myelocytes and metamyelocytes) > 1% indicates that a LEFT SHIFT is Present. MCH (RBC) [Entitic mass] 32.5 pg 27.0-32.0 [facility] Work Phone: [phone] Nucleated RBC/100 WBC (Bld) [Ratio] 0 % 0-5 [facility] Work Phone: [phone] MCHC Auto (RBC) [Mass/Vol]on 08-09-2022 MCHC (RBC) [Mass/Vol] 32.9 g/dL 32-36 [facility] Work Phone: No Panel Informationon 08-09 Estimated GFR (MDRD) Amer 27 mL/min >60 [facility] Work Phone: Comment on above: GFR Calc Estimated GFR (MDRD) Non-Af Amer 23 mL/min >60 [facility] Work Phone: Comment on above: Non- GFR Calc Total Iron Binding Capacity 217 ug/dL 250-450 [facility] Work Phone: Platelets bldon 08-09-2022 Platelets (Bld) [#/Vol] 147 10*3/uL 150-450 [facility] Work Phone: Serum or plasma albumin aubree urement (mass/volume)on 08-09-2022 Albumin [Mass/Vol] 3.1 g/dL 3.2-5.0 [facility] Work Phone: Serum or plasma calcium aubree urement (mass/volume)on 08-09-2022 Calcium [Mass/Vol] 10.8 mg/dL 8.5-10.1 [facility] Work Phone: Serum or plasma creatinine m easurement (mass/volume)on 08-09-2022 Creatinine [Mass/Vol] 2.87 mg/dL 0.70-1.30 [facility] Work Phone: Comment on above: The validity of the calculated GFR & GFRAA in patients over 70 years has not been determined. Clinical correlation is essential. Serum or plasma ferritin laurie surement (mass/volume)on 08-09-2022 Ferritin [Mass/Vol] 194 ng/mL 26-388 [facility] Work Phone: Serum or plasma iron saturat ion measurement (mass fraction)on 08-09-2022 Iron saturation [Mass fraction] 34.1 % 15.0-55.0 [facility] Work Phone: Serum or plasma urea nitroge n measurement (mass/volume)on 08-09-2022 Urea nitrogen [Mass/Vol] 69 mg/dL 7-18 [facility] Work [phone] INR in Blood by Coagulation assayon 07-16-2022 INR Coag (Bld) [Relative time] 1.7 {INR} [facility] Work [phone] Laboratory - Coagulationon 0 07-16-2022 PT Coag (PPP) [Time] 19.5 s 11.7-14.9 [facility] Work Phone: [phone] Absolute lymphocyte counton 07-12-2022 Lymphocytes Auto (Unsp spec) [#/Vol] 1.55 10*3/uL 0.83-4.51 [facility] Work [phone] Basophil percentageon 2021 Basophil percentage 2.9 mg/dL 2.5-4.9 [facility] Work Phone: [phone] Basophils/100 WBC (Bld) 0.4 % 0-1 [facility] Work Phone: Chloride [Moles/Vol] 107 mmol/L 98-107 [facility] Work Phone: Eosinophils/100 WBC (Bld) 2.8 % 0-5 [facility] Work [phone] Glucose [Mass/Vol] 182 mg/dL 74-106 [facility] Work Phone: Comment on above: Fasting Glucose resu lt greater than or equal to 126 mg/dL suggests DIABETES MELLITUS per A.D.A. criteria. Neutrophils (Bld) [#/Vol] 6.0 10*3/uL 2.0-7.7 [facility] Work Phone: Neutrophils/100 WBC (Bld) 70.9 % 47-70 [facility] Work [phone] Potassium [Moles/Vol] 4.2 mmol/L 3.5-5.1 [facility] Work Phone: Sodium [Moles/Vol] 139 mmol/L 136-145 [facility] Work Phone: [phone] WBC (Bld) [#/Vol] 8.5 10*3/uL 4.4-11.0 [facility] Work Phone: [phone] Blood erythrocytes count (nu mber/volume)on 07-12-2022 RBC (Bld) [#/Vol] 3.25 10*6/uL 4.6-6.2 [facility] Work Phone: [phone] Blood hemoglobin measurement (mass/volume)on 07-12-2022 Hemoglobin (Bld) [Mass/Vol] 10.3 g/dL 13.0-16.5 [facility] Work Phone: Blood lymphocytes/100 leukoc yteson 07-12-2022 Lymphocytes/100 WBC (Bld) 18.2 % 19-41 [facility] Work Phone: Blood monocytes/100 leukocyt eson 07-12-2022 Monocytes/100 WBC (Bld) 6.9 % 0-10 [facility] Work Phone: Blood platelet mean volumeon 07-12-2022 Platelet mean volume (Bld) [Entitic vol] 10.7 fL 6.2-12.0 [facility] Work Phone: [phone] Determination of erythrocyte mean corpuscular volume (MCV)on 07-12-2022 MCV (RBC) [Entitic vol] 97.2 fL 80-94 [facility] Work Phone: [phone] Hematocrit Auto (Bld) [Volum e fraction]on 07-12-2022 Hematocrit (Bld) [Volume fraction] 31.6 % 40-54 [facility] Work Phone: [phone] Iron measurement (mass/mass) on 07-12-2022 Iron (Unsp spec) [Mass/Mass] 66 ug/dL 65-175 [facility] Work Phone: [phone] Laboratory - Chemistry and C hemistry - challengeon 07-12-2022 CO2 [Moles/Vol] 27.0 mmol/L 21.0-32.0 [facility] Work Phone: Urea nitrogen/Creatinine [Mass ratio] 24.0 mg/mg 10-20 [facility] Work Phone: [phone] Laboratory - Hematology and Cell countson 07-12-2022 Erythrocyte distribution width (RBC) [Entitic vol] 50.8 fL 35.1-43.9 [facility] Work Phone: [phone] Erythrocyte distribution width (RBC) [Ratio] 14.6 % 11.6-14.6 [facility] Work Phone: [phone] Immature granulocytes/100 WBC (Bld) 0.800 % 0.0-0.9 [facility] Work Phone: [phone] Comment on above: IG% - Immature Granu locytes (promyelocytes, myelocytes and metamyelocytes) > 1% indicates that a LEFT SHIFT is Present. MCH (RBC) [Entitic mass] 31.7 pg 27.0-32.0 [facility] Work Phone: [phone] Nucleated RBC/100 WBC (Bld) [Ratio] 0 % 0-5 [facility] Work Phone: [phone] MCHC Auto (RBC) [Mass/Vol]on 07-12-2022 MCHC (RBC) [Mass/Vol] 32.6 g/dL 32-36 [facility] Work Phone: [phone] Panel Informationon 07-12 Estimated GFR (MDRD) Amer 30 mL/min >60 [facility] Work Phone: [phone] Comment on above: GFR Calc Estimated GFR (MDRD) Non-Af Amer 25 mL/min >60 [facility] Work Phone: [phone] Comment on above: Non- GFR Calc Total Iron Binding Capacity 228 ug/dL 250-450 [facility] Work Phone: [phone] Platelets bldon 07-12-2022 Platelets (Bld) [#/Vol] 154 10*3/uL 150-450 [facility] Work Phone: [phone] Serum or plasma albumin aubree urement (mass/volume)on 07-12-2022 Albumin [Mass/Vol] 2.8 g/dL 3.2-5.0 [facility] Work Phone: Serum or plasma calcium aubree urement (mass/volume)on 07-12-2022 Calcium [Mass/Vol] 9.2 mg/dL 8.5-10.1 [facility] Work Phone: Serum or plasma creatinine m easurement (mass/volume)on 07-12-2022 Creatinine [Mass/Vol] 2.63 mg/dL 0.70-1.30 [facility] Work Phone: Comment on above: The validity of the calculated GFR & GFRAA in patients over 70 years has not been determined. Clinical correlation is essential. Serum or plasma ferritin laurie surement (mass/volume)on 07-12-2022 Ferritin [Mass/Vol] 227 ng/mL 26-388 [facility] Work Phone: Serum or plasma iron saturat ion measurement (mass fraction)on 07-12-2022 Iron saturation [Mass fraction] 28.9 % 15.0-55.0 [facility] Work Phone: Serum or plasma urea nitroge n measurement (mass/volume)on 07-12-2022 Urea nitrogen [Mass/Vol] 63 mg/dL 7-18 [facility] Work Phone: Basophil percentageon 2021 Bilirubin [Mass/Vol] 0.90 mg/dL 0.20-1.00 [facility] Work Phone: Comment on above: For patients on eltr ombopag therapy, use of Dimension Latty TBIL is not recommended. Chloride [Moles/Vol] 104 mmol/L 98-107 [facility] Work Phone: [phone] Glucose [Mass/Vol] 147 mg/dL 74-106 [facility] Work Phone: Comment on above: Fasting Glucose resu lt greater than or equal to 126 mg/dL suggests DIABETES MELLITUS per A.D.A. criteria. Potassium [Moles/Vol] 4.6 mmol/L 3.5-5.1 [facility] Work Phone: Protein [Mass/Vol] 8.2 g/dL 6.4-8.2 [facility] Work Phone: [phone] Sodium [Moles/Vol] 137 mmol/L 136-145 [facility] Work Phone: [phone] WBC (Bld) [#/Vol] 9.1 10*3/uL 4.4-11.0 [facility] Work Phone: [phone] Blood erythrocytes count (nu mber/volume)on 07-09-2022 RBC (Bld) [#/Vol] 3.47 10*6/uL 4.6-6.2 [facility] Work Phone: [phone] Blood hemoglobin measurement (mass/volume)on 07-09-2022 Hemoglobin (Bld) [Mass/Vol] 10.8 g/dL 13.0-16.5 [facility] Work Phone: [phone] Blood platelet mean volumeon 07-09-2022 Platelet mean volume (Bld) [Entitic vol] 11.0 fL 6.2-12.0 [facility] Work Phone: [phone] Determination of erythrocyte mean corpuscular volume (MCV)on 07-09-2022 MCV (RBC) [Entitic vol] 98.8 fL 80-94 [facility] Work Phone: [phone] Hematocrit Auto (Bld) [Volum e fraction]on 07-09-2022 Hematocrit (Bld) [Volume fraction] 34.3 % 40-54 [facility] Work Phone: [phone] INR in Blood by Coagulation assayon 07-09-2022 INR Coag (Bld) [Relative time] 2.7 {INR} [facility] Work Phone: Laboratory - Chemistry and C hemistry - challengeon 07-09-2022 ALP [Catalytic activity/Vol] 145 U/L 45-117 [facility] Work Phone: ALT [Catalytic activity/Vol] 19 U/L 16-61 [facility] Work Phone: CO2 [Moles/Vol] 29.0 mmol/L 21.0-32.0 [facility] Work Phone: Globulin (S) [Mass/Vol] 5.2 g/dL 2.2-4.2 [facility] Work Phone: [phone] Natriuretic peptide B (Bld) [Mass/Vol] 265.9 pg/mL 0-100 [facility] Work Phone: [phone] Urea nitrogen/Creatinine [Mass ratio] 26.0 mg/mg 10-20 [facility] Work Phone: [phone] Laboratory - Coagulationon 0 07-09-2022 PT Coag (PPP) [Time] 28.2 s 11.7-14.9 [facility] Work Phone: [phone] Laboratory - Hematology and Cell countson 07-09-2022 Erythrocyte distribution width (RBC) [Entitic vol] 51.2 fL 35.1-43.9 [facility] Work Phone: [phone] Erythrocyte distribution width (RBC) [Ratio] 14.2 % 11.6-14.6 [facility] Work Phone: [phone] MCH (RBC) [Entitic mass] 31.1 pg 27.0-32.0 [facility] Work Phone: MCHC Auto (RBC) [Mass/Vol]on 07-09-2022 MCHC (RBC) [Mass/Vol] 31.5 g/dL 32-36 [facility] Work Phone: No Panel Informationon 07-09 Estimated GFR (MDRD) Amer 32 mL/min >60 [facility] Work Phone: Comment on above: GFR Calc Estimated GFR (MDRD) Non-Af Amer 27 mL/min >60 [facility] Work Phone: [phone] Comment on above: Non- GFR Calc Platelets bldon 07-09-2022 Platelets (Bld) [#/Vol] 148 10*3/uL 150-450 [facility] Work Phone: Serum or plasma albumin aubree urement (mass/volume)on 07-09-2022 Albumin [Mass/Vol] 3.0 g/dL 3.2-5.0 [facility] Work Phone: [phone] Serum or plasma albumin/glob ulin mass ratioon 07-09-2022 Albumin/Globulin [Mass ratio] 0.6 {ratio} 0.9-2.4 [facility] Work Phone: Serum or plasma calcium aubree urement (mass/volume)on 07-09-2022 Calcium [Mass/Vol] 9.0 mg/dL 8.5-10.1 [facility] Work Phone: [phone] Serum or plasma creatinine m easurement (mass/volume)on 07-09-2022 Creatinine [Mass/Vol] 2.50 mg/dL 0.70-1.30 [facility] Work Phone: Comment on above: The validity of the calculated GFR & GFRAA in patients over 70 years has not been determined. Clinical correlation is essential. Serum or plasma urea nitroge n measurement (mass/volume)on 07-09-2022 Urea nitrogen [Mass/Vol] 65 mg/dL 7-18 [facility] Work Phone: Thin prep Papanicolaou smear with manual screeningon 07-09-2022 Thin prep Papanicolaou smear with manual screening 24 U/L 15-37 [facility] Work Phone: [phone] Thin prep Papanicolaou smear with manual screening 4 5-15 [facility] Work Phone: Basophil percentageon 2021 Bilirubin [Mass/Vol] 0.60 mg/dL 0.20-1.00 [facility] Work Phone: [phone] Comment on above: For patients on eltr ombopag therapy, use of Dimension Latty TBIL is not recommended. Chloride [Moles/Vol] 105 mmol/L 98-107 [facility] Work Phone: [phone] Cholesterol [Mass/Vol] 92 mg/dL <200 [facility] Work Phone: [phone] Comment on above: <200 mg/dL Desirable 200-240 mg/dL Borderline >240 mg/dL High Risk Glucose [Mass/Vol] 114 mg/dL 74-106 [facility] Work Phone: Comment on above: Fasting Glucose resu lt from 100 to 125 mg/dL suggests IMPAIRED HOMEOSTASIS per A.D.A. criteria. Potassium [Moles/Vol] 4.5 mmol/L 3.5-5.1 [facility] Work Phone: [phone] Protein [Mass/Vol] 8.0 g/dL 6.4-8.2 [facility] Work Phone: [phone] Sodium [Moles/Vol] 139 mmol/L 136-145 [facility] Work Phone: [phone] Triglyceride [Mass/Vol] 114 mg/dL <199 [facility] Work Phone: [phone] Comment on above: The drugs N-Acetylcy steine and Metamizole may falsely depress this assay.Serum Triglycerides Reference Interval Normal <150 mg/dL Borderline high 150 - 199 mg/dL High 200 - 499 mg/dL Very High > or = 500 mg/dL INR in Blood by Coagulation assayon 06-18-2022 INR Coag (Bld) [Relative time] 2.8 {INR} [facility] Work Phone: [phone] Laboratory - Chemistry and C hemistry - challengeon 06-18-2022 ALP [Catalytic activity/Vol] 132 U/L 45-117 [facility] Work Phone: [phone] ALT [Catalytic activity/Vol] 19 U/L 16-61 [facility] Work Phone: [phone] CO2 [Moles/Vol] 30.0 mmol/L 21.0-32.0 [facility] Work Phone: [phone] Free T4 [Mass/Vol] 0.80 ng/dL 0.76-1.46 [facility] Work Phone: [phone] Globulin (S) [Mass/Vol] 5.0 g/dL 2.2-4.2 [facility] Work Phone: [phone] Urea nitrogen/Creatinine [Mass ratio] 19.9 mg/mg 10-20 [facility] Work Phone: Laboratory - Coagulationon 0 06-18-2022 PT Coag (PPP) [Time] 29.3 s 11.7-14.9 [facility] Work Phone: No Panel Informationon 06-18 Estimated GFR (MDRD) Amer 29 mL/min >60 [facility] Work Phone: Comment on above: GFR Calc Estimated GFR (MDRD) Non-Af Amer 24 mL/min >60 [facility] Work Phone: Comment on above: Non- GFR Calc Hepatitis C Antibody Non-Reactive Nonreactive [facility] Work Phone: Comment on above: Non Reactive: < 0.8 Equivocal: >/= 0.8 to < 1.0 Reactive: >/= 1.0The CDC recommends that a reactive/equivocal HCV antibody result be followed up by the HCV Nucleic Acid Amplificationtest (752399) Thyroid Stimulating Hormone (TSH) 5.65 uIU/mL 0.358-3.74 [facility] Work Phone: Urine Microalbumin/Creatinine Ratio 173.8 mg/g CRE <30 [facility] Work Phone: [phone] Vitamin D 25-Hydroxy 48.5 ng/mL [facility] Work Phone: Comment on above: Vitamin D 25(OH) Sta tus Range Deficiency <20 ng/mL (50nmol/L) Insufficiency 20 - 30 ng/mL (50 - 75 nmol/L) Sufficiency 30 - 100 ng/mL (75 - 250 nmol/L) Toxicity >100 ng/mL (>250 nmol/L) Serum or plasma albumin aubree urement (mass/volume)on 06-18-2022 Albumin [Mass/Vol] 3.0 g/dL 3.2-5.0 [facility] Work Phone: [phone] Serum or plasma albumin/glob ulin mass ratioon 06-18-2022 Albumin/Globulin [Mass ratio] 0.6 {ratio} 0.9-2.4 [facility] Work Phone: [phone] Serum or plasma calcium aubree urement (mass/volume)on 06-18-2022 Calcium [Mass/Vol] 9.3 mg/dL 8.5-10.1 [facility] Work Phone: Serum or plasma cholesterol in HDL measurement (mass/volume)on 06-18-2022 Cholesterol in HDL [Mass/Vol] 31 mg/dL >40 [facility] Work Phone: Comment on above: The drugs N-Acetylcy steine and Metamizole may falsely depress this assay. Reference Range HDL <40 mg/dL Low HDL Cholesterol HDL >or= 60 mg/dL High HDL Cholesterol Serum or plasma cholesterol in VLDL measurement (mass/volume)on 06-18-2022 Cholesterol in VLDL [Mass/Vol] 23 mg/dL 5-40 [facility] Work Phone: Serum or plasma creatinine m easurement (mass/volume)on 06-18-2022 Creatinine [Mass/Vol] 2.76 mg/dL 0.70-1.30 [facility] Work Phone: Comment on above: The validity of the calculated GFR & GFRAA in patients over 70 years has not been determined. Clinical correlation is essential. Serum or plasma low density lipoprotein (LDL) cholesterol measurement (mass/volume)on 06-18-2022 Cholesterol in LDL [Mass/Vol] 38 mg/dL 0-130 [facility] Work Phone: Serum or plasma urea nitroge n measurement (mass/volume)on 06-18-2022 Urea nitrogen [Mass/Vol] 55 mg/dL 7-18 [facility] Work Phone: Thin prep Papanicolaou smear with manual screeningon 06-18-2022 Thin prep Papanicolaou smear with manual screening 19 U/L 15-37 [facility] Work Phone: Thin prep Papanicolaou smear with manual screening 4 5-15 [facility] Work Phone: Thin prep Papanicolaou smear with manual screening 285.0 mg/L NO RANGE EST. [facility] Work Phone: Urine creatinine measurement (mass/volume)on 06-18-2022 Creatinine (U) [Mass/Vol] 164.00 mg/dL NO RANGE EST. [facility] Work Phone: Absolute lymphocyte counton 06-14-2022 Lymphocytes Auto (Unsp spec) [#/Vol] 1.51 10*3/uL 0.83-4.51 [facility] Work Phone: Basophil percentageon 2021 Basophil percentage 2.6 mg/dL 2.5-4.9 [facility] Work Phone: Basophils/100 WBC (Bld) 0.3 % 0-1 [facility] Work Phone: Chloride [Moles/Vol] 104 mmol/L 98-107 [facility] Work Phone: Eosinophils/100 WBC (Bld) 2.6 % 0-5 [facility] Work Phone: Glucose [Mass/Vol] 195 mg/dL 74-106 [facility] Work Phone: Comment on above: Fasting Glucose resu lt greater than or equal to 126 mg/dL suggests DIABETES MELLITUS per A.D.A. criteria. Neutrophils (Bld) [#/Vol] 6.3 10*3/uL 2.0-7.7 [facility] Work Phone: Neutrophils/100 WBC (Bld) 72.7 % 47-70 [facility] Work Phone: Potassium [Moles/Vol] 4.2 mmol/L 3.5-5.1 [facility] Work Phone: Sodium [Moles/Vol] 141 mmol/L 136-145 [facility] Work Phone: WBC (Bld) [#/Vol] 8.7 10*3/uL 4.4-11.0 [facility] Work Phone: Blood erythrocytes count (nu mber/volume)on 06-14-2022 RBC (Bld) [#/Vol] 3.50 10*6/uL 4.6-6.2 [facility] Work Phone: Blood hemoglobin measurement (mass/volume)on 06-14-2022 Hemoglobin (Bld) [Mass/Vol] 10.9 g/dL 13.0-16.5 [facility] Work Phone: Blood lymphocytes/100 leukoc yteson 06-14-2022 Lymphocytes/100 WBC (Bld) 17.4 % 19-41 [facility] Work Phone: [phone] Blood monocytes/100 leukocyt eson 06-14-2022 Monocytes/100 WBC (Bld) 6.4 % 0-10 [facility] Work Phone: Blood platelet mean volumeon 06-14-2022 Platelet mean volume (Bld) [Entitic vol] 10.3 fL 6.2-12.0 [facility] Work Phone: Determination of erythrocyte mean corpuscular volume (MCV)on 06-14-2022 MCV (RBC) [Entitic vol] 100.0 fL 80-94 [facility] Work Phone: [phone] Hematocrit Auto (Bld) [Volum e fraction]on 06-14-2022 Hematocrit (Bld) [Volume fraction] 35.0 % 40-54 [facility] Work Phone: Iron measurement (mass/mass) on 06-14-2022 Iron (Unsp spec) [Mass/Mass] 62 ug/dL 65-175 [facility] Work Phone: [phone] Laboratory - Chemistry and C hemistry - challengeon 06-14-2022 CO2 [Moles/Vol] 31.0 mmol/L 21.0-32.0 [facility] Work Phone: [phone] Urea nitrogen/Creatinine [Mass ratio] 22.4 mg/mg 10-20 [facility] Work Phone: [phone] Laboratory - Hematology and Cell countson 06-14-2022 Erythrocyte distribution width (RBC) [Entitic vol] 50.7 fL 35.1-43.9 [facility] Work Phone: [phone] Erythrocyte distribution width (RBC) [Ratio] 14.1 % 11.6-14.6 [facility] Work Phone: Immature granulocytes/100 WBC (Bld) 0.600 % 0.0-0.9 [facility] Work Phone: [phone] Comment on above: IG% - Immature Granu locytes (promyelocytes, myelocytes and metamyelocytes) > 1% indicates that a LEFT SHIFT is Present. MCH (RBC) [Entitic mass] 31.1 pg 27.0-32.0 [facility] Work Phone: [phone] Nucleated RBC/100 WBC (Bld) [Ratio] 0 % 0-5 [facility] Work Phone: [phone] MCHC Auto (RBC) [Mass/Vol]on 06-14-2022 MCHC (RBC) [Mass/Vol] 31.1 g/dL 32-36 [facility] Work Phone: No Panel Informationon 06-14 Estimated Creatinine Clearance Calc 19.46 ml/min [facility] Work Phone: [phone] Estimated GFR (MDRD) Amer 31 mL/min >60 [facility] Work Phone: [phone] Comment on above: GFR Calc Estimated GFR (MDRD) Non-Af Amer 25 mL/min >60 [facility] Work Phone: [phone] Comment on above: Non- GFR Calc Parathyroid Hormone (Intact) 39.9 pg/mL 18.4-80.1 [facility] Work Phone: [phone] Total Iron Binding Capacity 252 ug/dL 250-450 [facility] Work Phone: [phone] Platelets bldon 06-14-2022 Platelets (Bld) [#/Vol] 139 10*3/uL 150-450 [facility] Work Phone: [phone] Serum or plasma albumin aubree urement (mass/volume)on 06-14-2022 Albumin [Mass/Vol] 3.0 g/dL 3.2-5.0 [facility] Work Phone: [phone] Serum or plasma calcium aubree urement (mass/volume)on 06-14-2022 Calcium [Mass/Vol] 9.2 mg/dL 8.5-10.1 [facility] Work Phone: Serum or plasma creatinine m easurement (mass/volume)on 06-14-2022 Creatinine [Mass/Vol] 2.59 mg/dL 0.70-1.30 [facility] Work Phone: Comment on above: The validity of the calculated GFR & GFRAA in patients over 70 years has not been determined. Clinical correlation is essential. Serum or plasma ferritin laurie surement (mass/volume)on 06-14-2022 Ferritin [Mass/Vol] 210 ng/mL 26-388 [facility] Work Phone: Serum or plasma iron saturat ion measurement (mass fraction)on 06-14-2022 Iron saturation [Mass fraction] 24.6 % 15.0-55.0 [facility] Work Phone: Serum or plasma urea nitroge n measurement (mass/volume)on 06-14-2022 Urea nitrogen [Mass/Vol] 58 mg/dL 06-14 [facility] Work Phone: Basophil percentageon 2021 Bilirubin [Mass/Vol] 0.80 mg/dL 0.20-1.00 [facility] Work Phone: Comment on above: For patients on eltr ombopag therapy, use of Dimension Latty TBIL is not recommended. Chloride [Moles/Vol] 103 mmol/L 98-107 [facility] Work Phone: Cholesterol [Mass/Vol] 104 mg/dL <200 [facility] Work Phone: Comment on above: <200 mg/dL Desirable 200-240 mg/dL Borderline >240 mg/dL High Risk Glucose [Mass/Vol] 115 mg/dL 74-106 [facility] Work Phone: Comment on above: Fasting Glucose resu lt from 100 to 125 mg/dL suggests IMPAIRED HOMEOSTASIS per A.D.A. criteria. Potassium [Moles/Vol] 4.2 mmol/L 3.5-5.1 [facility] Work Phone: [phone] Protein [Mass/Vol] 8.4 g/dL 6.4-8.2 [facility] Work Phone: [phone] Sodium [Moles/Vol] 140 mmol/L 136-145 [facility] Work Phone: [phone] Triglyceride [Mass/Vol] 86 mg/dL <199 [facility] Work Phone: [phone] Comment on above: The drugs N-Acetylcy steine and Metamizole may falsely depress this assay.Serum Triglycerides Reference Interval Normal <150 mg/dL Borderline high 150 - 199 mg/dL High 200 - 499 mg/dL Very High > or = 500 mg/dL WBC (Bld) [#/Vol] 12.5 10*3/uL 4.4-11.0 [facility] Work Phone: [phone] Blood erythrocytes count (nu mber/volume)on 05-18-2022 RBC (Bld) [#/Vol] 3.47 10*6/uL 4.6-6.2 [facility] Work Phone: [phone] Blood hemoglobin measurement (mass/volume)on 05-18-2022 Hemoglobin (Bld) [Mass/Vol] 11.0 g/dL 13.0-16.5 [facility] Work Phone: [phone] Blood platelet mean volumeon 05-18-2022 Platelet mean volume (Bld) [Entitic vol] 10.7 fL 6.2-12.0 [facility] Work Phone: [phone] Determination of erythrocyte mean corpuscular volume (MCV)on 05-18-2022 MCV (RBC) [Entitic vol] 99.7 fL 80-94 [facility] Work Phone: [phone] Hematocrit Auto (Bld) [Volum e fraction]on 05-18-2022 Hematocrit (Bld) [Volume fraction] 34.6 % 40-54 [facility] Work Phone: [phone] Laboratory - Chemistry and C hemistry - challengeon 05-18-2022 ALP [Catalytic activity/Vol] 140 U/L 45-117 [facility] Work Phone: ALT [Catalytic activity/Vol] 23 U/L 16-61 [facility] Work Phone: [phone] CO2 [Moles/Vol] 29.0 mmol/L 21.0-32.0 [facility] Work Phone: [phone] Globulin (S) [Mass/Vol] 5.5 g/dL 2.2-4.2 [facility] Work Phone: [phone] Urea nitrogen/Creatinine [Mass ratio] 23.7 mg/mg 10-20 [facility] Work Phone: [phone] Laboratory - Hematology and Cell countson 05-18-2022 Erythrocyte distribution width (RBC) [Entitic vol] 51.8 fL 35.1-43.9 [facility] Work Phone: [phone] Erythrocyte distribution width (RBC) [Ratio] 14.3 % 11.6-14.6 [facility] Work Phone: [phone] MCH (RBC) [Entitic mass] 31.7 pg 27.0-32.0 [facility] Work Phone: MCHC Auto (RBC) [Mass/Vol]on 05-18-2022 MCHC (RBC) [Mass/Vol] 31.8 g/dL 32-36 [facility] Work Phone: No Panel Informationon 05-18 Estimated GFR (MDRD) Amer 29 mL/min >60 [facility] Work Phone: [phone] Comment on above: GFR Calc Estimated GFR (MDRD) Non-Af Amer 24 mL/min >60 [facility] Work Phone: [phone] Comment on above: Non- GFR Calc Thyroid Stimulating Hormone (TSH) 5.11 uIU/mL 0.358-3.74 [facility] Work Phone: Platelets bldon 05-18-2022 Platelets (Bld) [#/Vol] 169 10*3/uL 150-450 [facility] Work Phone: [phone] Serum or plasma albumin aubree urement (mass/volume)on 05-18-2022 Albumin [Mass/Vol] 2.9 g/dL 3.2-5.0 [facility] Work Phone: Serum or plasma albumin/glob ulin mass ratioon 05-18-2022 Albumin/Globulin [Mass ratio] 0.5 {ratio} 0.9-2.4 [facility] Work Phone: Serum or plasma calcium aubree urement (mass/volume)on 05-18-2022 Calcium [Mass/Vol] 9.5 mg/dL 8.5-10.1 [facility] Work Phone: Serum or plasma cholesterol in HDL measurement (mass/volume)on 05-18-2022 Cholesterol in HDL [Mass/Vol] 37 mg/dL >40 [facility] Work Phone: Comment on above: The drugs N-Acetylcy steine and Metamizole may falsely depress this assay. Reference Range HDL <40 mg/dL Low HDL Cholesterol HDL >or= 60 mg/dL High HDL Cholesterol Serum or plasma cholesterol in VLDL measurement (mass/volume)on 05-18-2022 Cholesterol in VLDL [Mass/Vol] 17 mg/dL 5-40 [facility] Work Phone: Serum or plasma creatinine m easurement (mass/volume)on 05-18-2022 Creatinine [Mass/Vol] 2.74 mg/dL 0.70-1.30 [facility] Work Phone: Comment on above: The validity of the calculated GFR & GFRAA in patients over 70 years has not been determined. Clinical correlation is essential. Serum or plasma low density lipoprotein (LDL) cholesterol measurement (mass/volume)on 05-18-2022 Cholesterol in LDL [Mass/Vol] 50 mg/dL 0-130 [facility] Work Phone: Serum or plasma urea nitroge n measurement (mass/volume)on 05-18-2022 Urea nitrogen [Mass/Vol] 65 mg/dL 7-18 [facility] Work Phone: Thin prep Papanicolaou smear with manual screeningon 05-18-2022 Thin prep Papanicolaou smear with manual screening 18 U/L 15-37 [facility] Work Phone: Thin prep Papanicolaou smear with manual screening 8 5-15 [facility] Work Phone: Whole blood hemoglobin A1c/t otal hemoglobin ratio (mass fraction)on 05-18-2022 HbA1c (Bld) [Mass fraction] 6.3 % 3.8-5.6 [facility] Work Phone: Comment on above: Normal < 5.7 % Predi abetic 5.7 - 6.4 % Diabetic >or= 6.5 % Please note range changes. Absolute lymphocyte counton 05-17-2022 Lymphocytes Auto (Unsp spec) [#/Vol] 1.53 10*3/uL 0.83-4.51 [facility] Work Phone: Basophil percentageon 2021 Basophil percentage 3.5 mg/dL 2.5-4.9 [facility]: Basophils/100 WBC (Bld) 0.3 % 0-1 [facility] Work Phone: Chloride [Moles/Vol] 104 mmol/L 98-107 [facility]: Eosinophils/100 WBC (Bld) 1.8 % 0-5 [facility] Work Phone: Glucose [Mass/Vol] 302 mg/dL 74-106 [facility] Work Phone: Comment on above: Glucose result great er than or equal to 200 mg/dLsuggests DIABETES MELLITUS per A.D.A. criteria. Neutrophils (Bld) [#/Vol] 12.1 10*3/uL 2.0-7.7 [facility] Work Phone: Neutrophils/100 WBC (Bld) 81.8 % 47-70 [facility] Work Phone: Potassium [Moles/Vol] 4.4 mmol/L 3.5-5.1 [facility] Work Phone: Sodium [Moles/Vol] 138 mmol/L 136-145 [facility] Work Phone: WBC (Bld) [#/Vol] 14.8 10*3/uL 4.4-11.0 [facility] Work Phone: Blood erythrocytes count (nu mber/volume)on 05-17-2022 RBC (Bld) [#/Vol] 3.49 10*6/uL 4.6-6.2 [facility] Work Phone: Blood hemoglobin measurement (mass/volume)on 05-17-2022 Hemoglobin (Bld) [Mass/Vol] 11.1 g/dL 13.0-16.5 [facility] Work Phone: Blood lymphocytes/100 leukoc yteson 05-17-2022 Lymphocytes/100 WBC (Bld) 10.3 % 19-41 [facility] Work Phone: [phone] Blood monocytes/100 leukocyt eson 05-17-2022 Monocytes/100 WBC (Bld) 5.1 % 0-10 [facility] Work Phone: Blood platelet mean volumeon 05-17-2022 Platelet mean volume (Bld) [Entitic vol] 10.1 fL 6.2-12.0 [facility] Work Phone: Determination of erythrocyte mean corpuscular volume (MCV)on 05-17-2022 MCV (RBC) [Entitic vol] 99.7 fL 80-94 [facility] Work Phone: Hematocrit Auto (Bld) [Volum e fraction]on 05-17-2022 Hematocrit (Bld) [Volume fraction] 34.8 % 40-54 [facility] Work Phone: Iron measurement (mass/mass) on 05-17-2022 Iron (Unsp spec) [Mass/Mass] 49 ug/dL 65-175 [facility] Work Phone: Laboratory - Chemistry and C hemistry - challengeon 05-17-2022 CO2 [Moles/Vol] 30.0 mmol/L 21.0-32.0 [facility] Work Phone: Urea nitrogen/Creatinine [Mass ratio] 23.1 mg/mg 10-20 [facility] Work Phone: [phone] Laboratory - Hematology and Cell countson 05-17-2022 Erythrocyte distribution width (RBC) [Entitic vol] 51.1 fL 35.1-43.9 [facility] Work Phone: [phone] Erythrocyte distribution width (RBC) [Ratio] 14.2 % 11.6-14.6 [facility] Work Phone: [phone] Immature granulocytes/100 WBC (Bld) 0.700 % 0.0-0.9 [facility] Work Phone: [phone] Comment on above: IG% - Immature Granu locytes (promyelocytes, myelocytes and metamyelocytes) > 1% indicates that a LEFT SHIFT is Present. MCH (RBC) [Entitic mass] 31.8 pg 27.0-32.0 [facility] Work Phone: [phone] Nucleated RBC/100 WBC (Bld) [Ratio] 0 % 0-5 [facility] Work Phone: [phone] MCHC Auto (RBC) [Mass/Vol]on 05-17-2022 MCHC (RBC) [Mass/Vol] 31.9 g/dL 32-36 [facility] Work Phone: [phone] Panel Informationon 05-17 Estimated GFR (MDRD) Amer 29 mL/min >60 [facility] Work Phone: [phone] Comment on above: GFR Calc Estimated GFR (MDRD) Non-Af Amer 24 mL/min >60 [facility] Work Phone: [phone] Comment on above: Non- GFR Calc Total Iron Binding Capacity 232 ug/dL 250-450 [facility] Work Phone: [phone] Platelets bldon 05-17-2022 Platelets (Bld) [#/Vol] 156 10*3/uL 150-450 [facility] Work Phone: [phone] Serum or plasma albumin aubree urement (mass/volume)on 05-17-2022 Albumin [Mass/Vol] 3.0 g/dL 3.2-5.0 [facility] Work Phone: Serum or plasma calcium aubree urement (mass/volume)on 05-17-2022 Calcium [Mass/Vol] 9.8 mg/dL 8.5-10.1 [facility] Work Phone: Serum or plasma creatinine m easurement (mass/volume)on 05-17-2022 Creatinine [Mass/Vol] 2.77 mg/dL 0.70-1.30 [facility] Work Phone: Comment on above: The validity of the calculated GFR & GFRAA in patients over 70 years has not been determined. Clinical correlation is essential. Serum or plasma ferritin laurie surement (mass/volume)on 05-17-2022 Ferritin [Mass/Vol] 307 ng/mL 26-388 [facility] Work Phone: Serum or plasma iron saturat ion measurement (mass fraction)on 05-17-2022 Iron saturation [Mass fraction] 21.1 % 15.0-55.0 [facility] Work Phone: Serum or plasma urea nitroge n measurement (mass/volume)on 05-17-2022 Urea nitrogen [Mass/Vol] 64 mg/dL 7-18 [facility] Work Phone: Absolute lymphocyte counton 04-12-2022 Lymphocytes Auto (Unsp spec) [#/Vol] 1.61 10*3/uL 0.83-4.51 [facility] Work Phone: Basophil percentageon 2021 Basophil percentage 3.2 mg/dL 2.5-4.9 [facility] Work Phone: Basophils/100 WBC (Bld) 0.3 % 0-1 [facility] Work Phone: Chloride [Moles/Vol] 100 mmol/L 98-107 [facility] Work [facility]: Eosinophils/100 WBC (Bld) 1.8 % 0-5 [facility] Work Phone: Glucose [Mass/Vol] 166 mg/dL 74-106 [facility] Work Phone: Comment on above: Fasting Glucose resu lt greater than or equal to 126 mg/dL suggests DIABETES MELLITUS per A.D.A. criteria. Neutrophils (Bld) [#/Vol] 8.3 10*3/uL 2.0-7.7 [facility] Work Phone: Neutrophils/100 WBC (Bld) 75.8 % 47-70 [facility] Work Phone: Potassium [Moles/Vol] 4.5 mmol/L 3.5-5.1 [facility] Work Phone: Sodium [Moles/Vol] 137 mmol/L 136-145 [facility] Work Phone: WBC (Bld) [#/Vol] 11.0 10*3/uL 4.4-11.0 [facility] Work Phone: Blood erythrocytes count (nu mber/volume)on 04-12-2022 RBC (Bld) [#/Vol] 3.44 10*6/uL 4.6-6.2 [facility] Work Phone: Blood hemoglobin measurement (mass/volume)on 04-12-2022 Hemoglobin (Bld) [Mass/Vol] 11.1 g/dL 13.0-16.5 [facility] Work Phone: Blood lymphocytes/100 leukoc yteson 04-12-2022 Lymphocytes/100 WBC (Bld) 14.7 % 19-41 [facility] Work Phone: Blood monocytes/100 leukocyt eson 04-12-2022 Monocytes/100 WBC (Bld) 6.9 % 0-10 [facility] Work Phone: Blood platelet mean volumeon 04-12-2022 Platelet mean volume (Bld) [Entitic vol] 9.4 fL 6.2-12.0 [facility] Work Phone: [phone] Determination of erythrocyte mean corpuscular volume (MCV)on 05-16-2022 MCV (RBC) [Entitic vol] 98.8 fL 80-94 [facility] Work Phone: [phone] Hematocrit Auto (Bld) [Volum e fraction]on 04-12-2022 Hematocrit (Bld) [Volume fraction] 34.0 % 40-54 [facility] Work Phone: [phone] Iron measurement (mass/mass) on 04-12-2022 Iron (Unsp spec) [Mass/Mass] 65 ug/dL 65-175 [facility] Work Phone: [phone] Laboratory - Chemistry and C hemistry - challengeon 04-12-2022 CO2 [Moles/Vol] 31.0 mmol/L 21.0-32.0 [facility] Work Phone: [phone] Urea nitrogen/Creatinine [Mass ratio] 24.7 mg/mg 10-20 [facility] Work Phone: [phone] Laboratory - Hematology and Cell countson 04-12-2022 Erythrocyte distribution width (RBC) [Entitic vol] 51.0 fL 35.1-43.9 [facility] Work Phone: [phone] Erythrocyte distribution width (RBC) [Ratio] 14.2 % 11.6-14.6 [facility] Work Phone: [phone] Immature granulocytes/100 WBC (Bld) 0.500 % 0.0-0.9 [facility] Work Phone: [phone] Comment on above: IG% - Immature Granu locytes (promyelocytes, myelocytes and metamyelocytes) > 1% indicates that a LEFT SHIFT is Present. MCH (RBC) [Entitic mass] 32.3 pg 27.0-32.0 [facility] Work Phone: [phone] Nucleated RBC/100 WBC (Bld) [Ratio] 0 % 0-5 [facility] Work Phone: [phone] MCHC Auto (RBC) [Mass/Vol]on 04-12-2022 MCHC (RBC) [Mass/Vol] 32.6 g/dL 32-36 [facility] Work Phone: [phone] No Panel Informationon 04-12 Estimated GFR (MDRD) Amer 32 mL/min >60 [facility] Work Phone: Comment on above: GFR Calc Estimated GFR (MDRD) Non-Af Amer 26 mL/min >60 [facility] Work Phone: Comment on above: Non- GFR Calc Total Iron Binding Capacity 228 ug/dL 250-450 [facility] Work Phone: Platelets bldon 04-12-2022 Platelets (Bld) [#/Vol] 140 10*3/uL 150-450 [facility] Work Phone: Serum or plasma albumin aubree urement (mass/volume)on 04-12-2022 Albumin [Mass/Vol] 3.0 g/dL 3.2-5.0 [facility] Work Phone: Serum or plasma calcium aubree urement (mass/volume)on 04-12-2022 Calcium [Mass/Vol] 9.0 mg/dL 8.5-10.1 [facility] Work Phone: Serum or plasma creatinine m easurement (mass/volume)on 04-12-2022 Creatinine [Mass/Vol] 2.51 mg/dL 0.70-1.30 [facility] Work Phone: Comment on above: The validity of the calculated GFR & GFRAA in patients over 70 years has not been determined. Clinical correlation is essential. Serum or plasma ferritin laurie surement (mass/volume)on 04-12-2022 Ferritin [Mass/Vol] 250 ng/mL 26-388 [facility] Work Phone: Serum or plasma iron saturat ion measurement (mass fraction)on 04-12-2022 Iron saturation [Mass fraction] 28.5 % 15.0-55.0 [facility] Work Phone: Serum or plasma urea nitroge n measurement (mass/volume)on 04-12-2022 Urea nitrogen [Mass/Vol] 62 mg/dL 7-18 [facility] Work Phone: Absolute lymphocyte counton 03-29-2022 Lymphocytes Auto (Unsp spec) [#/Vol] 1.98 10*3/uL 0.83-4.51 [facility] Work Phone: Basophil percentageon 2021 Basophil percentage 2.5 mg/dL 2.5-4.9 [facility]: Basophils/100 WBC (Bld) 0.6 % 0-1 [facility] Work Phone: Chloride [Moles/Vol] 109 mmol/L 98-107 [facility] Work Phone: Eosinophils/100 WBC (Bld) 2.8 % 0-5 [facility] Work Phone: [phone] Glucose [Mass/Vol] 121 mg/dL 74-106 [facility] Work Phone: Comment on above: Fasting Glucose resu lt from 100 to 125 mg/dL suggests IMPAIRED HOMEOSTASIS per A.D.A. criteria. Neutrophils (Bld) [#/Vol] 6.7 10*3/uL 2.0-7.7 [facility] Work Phone: Neutrophils/100 WBC (Bld) 68.7 % 47-70 [facility] Work Phone: Potassium [Moles/Vol] 4.4 mmol/L 3.5-5.1 [facility] Work Phone: Sodium [Moles/Vol] 140 mmol/L 136-145 [facility] Work Phone: WBC (Bld) [#/Vol] 9.8 10*3/uL 4.4-11.0 [facility] Work Phone: Blood erythrocytes count (nu mber/volume)on 03-29-2022 RBC (Bld) [#/Vol] 3.33 10*6/uL 4.6-6.2 [facility] Work Phone: Blood hemoglobin measurement (mass/volume)on 03-29-2022 Hemoglobin (Bld) [Mass/Vol] 10.5 g/dL 13.0-16.5 [facility] Work Phone: Blood lymphocytes/100 leukoc yteson 03-29-2022 Lymphocytes/100 WBC (Bld) 20.2 % 19-41 [facility] Work Phone: Blood monocytes/100 leukocyt eson 03-29-2022 Monocytes/100 WBC (Bld) 6.7 % 0-10 [facility] Work Phone: [phone] Blood platelet mean volumeon 03-29-2022 Platelet mean volume (Bld) [Entitic vol] 10.8 fL 6.2-12.0 [facility] Work Phone: Determination of erythrocyte mean corpuscular volume (MCV)on 03-29-2022 MCV (RBC) [Entitic vol] 100.3 fL 80-94 [facility] Work Phone: [phone] Hematocrit Auto (Bld) [Volum e fraction]on 03-29-2022 Hematocrit (Bld) [Volume fraction] 33.4 % 40-54 [facility] Work Phone: Iron measurement (mass/mass) on 03-29-2022 Iron (Unsp spec) [Mass/Mass] 71 ug/dL 65-175 [facility] Work Phone: Laboratory - Chemistry and C hemistry - challengeon 03-29-2022 CO2 [Moles/Vol] 25.0 mmol/L 21.0-32.0 [facility] Work Phone: [phone] Urea nitrogen/Creatinine [Mass ratio] 27.5 mg/mg 10-20 [facility] Work Phone: [phone] Laboratory - Hematology and Cell countson 03-29-2022 Erythrocyte distribution width (RBC) [Entitic vol] 55.0 fL 35.1-43.9 [facility] Work Phone: [phone] Erythrocyte distribution width (RBC) [Ratio] 15.1 % 11.6-14.6 [facility] Work Phone: [phone] Immature granulocytes/100 WBC (Bld) 1.000 % 0.0-0.9 [facility] Work Phone: Comment on above: IG% - Immature Granu locytes (promyelocytes, myelocytes and metamyelocytes) > 1% indicates that a LEFT SHIFT is Present. MCH (RBC) [Entitic mass] 31.5 pg 27.0-32.0 [facility] Work Phone: [phone] Nucleated RBC/100 WBC (Bld) [Ratio] 0 % 0-5 [facility] Work Phone: [phone] MCHC Auto (RBC) [Mass/Vol]on 03-29-2022 MCHC (RBC) [Mass/Vol] 31.4 g/dL 32-36 [facility] Work Phone: [phone] Panel Informationon 03-29 Estimated GFR (MDRD) Amer 37 mL/min >60 [facility] Work Phone: [phone] Comment on above: GFR Calc Estimated GFR (MDRD) Non-Af Amer 30 mL/min >60 [facility] Work Phone: [phone] Comment on above: Non- GFR Calc Parathyroid Hormone (Intact) 143.9 pg/mL 18.4-80.1 [facility] Work Phone: [phone] Total Iron Binding Capacity 242 ug/dL 250-450 [facility] Work Phone: Platelets bldon 03-29-2022 Platelets (Bld) [#/Vol] 164 10*3/uL 150-450 [facility] Work Phone: [phone] Serum or plasma albumin aubree urement (mass/volume)on 03-29-2022 Albumin [Mass/Vol] 3.0 g/dL 3.2-5.0 [facility] Work Phone: [phone] Serum or plasma calcium aubree urement (mass/volume)on 03-29-2022 Calcium [Mass/Vol] 8.1 mg/dL 8.5-10.1 [facility] Work Phone: [phone] Serum or plasma creatinine m easurement (mass/volume)on 03-29-2022 Creatinine [Mass/Vol] 2.22 mg/dL 0.70-1.30 [facility] Work Phone: Comment on above: The validity of the calculated GFR & GFRAA in patients over 70 years has not been determined. Clinical correlation is essential. Serum or plasma ferritin laurie surement (mass/volume)on 03-29-2022 Ferritin [Mass/Vol] 209 ng/mL 26-388 [facility] Work Phone: Serum or plasma iron saturat ion measurement (mass fraction)on 03-29-2022 Iron saturation [Mass fraction] 29.3 % 15.0-55.0 [facility] Work Phone: [phone] Serum or plasma urea nitroge n measurement (mass/volume)on 03-29-2022 Urea nitrogen [Mass/Vol] 61 mg/dL 7-18 [facility] Work Phone: [phone] Serum or plasma uric acid me asurement (mass/volume)on 03-29-2022 Urate [Mass/Vol] 5.8 mg/dL 3.5-7.2 [facility] Work Phone: Comment on above: The drugs N-Acetylcy steine and Metamizole may falsely depress this assay. Urine creatinine measurement (mass/volume)on 03-29-2022 Creatinine (U) [Mass/Vol] 90.50 mg/dL NO RANGE EST. [facility] Work Phone: [phone] Urine protein measurement (m ass/volume)on 03-29-2022 Protein (U) [Mass/Vol] 81.6 mg/dL 0.0-11.8 [facility] Work Phone: [phone] Urine protein/creatinine mas s ratioon 03-29-2022 Protein/Creatinine (U) [Mass ratio] 902 mg/g CRE 0-200 [facility] Work Phone: [phone] Absolute lymphocyte counton 03-15-2022 Lymphocytes Auto (Unsp spec) [#/Vol] 1.54 10*3/uL 0.83-4.51 [facility] Work Phone: [phone] Basophil percentageon 2021 Basophil percentage 3.0 mg/dL 2.5-4.9 [facility] Work Phone: Basophils/100 WBC (Bld) 0.3 % 0-1 [facility] Work Phone: Chloride [Moles/Vol] 108 mmol/L 98-107 [facility] Work Phone: Eosinophils/100 WBC (Bld) 1.4 % 0-5 [facility] Work Phone: Glucose [Mass/Vol] 233 mg/dL 74-106 [facility] Work Phone: Comment on above: Glucose result great er than or equal to 200 mg/dLsuggests DIABETES MELLITUS per A.D.A. criteria. Neutrophils (Bld) [#/Vol] 7.0 10*3/uL 2.0-7.7 [facility] Work Phone: Neutrophils/100 WBC (Bld) 74.8 % 47-70 [facility] Work Phone: Potassium [Moles/Vol] 4.5 mmol/L 3.5-5.1 [facility] Work Phone: Sodium [Moles/Vol] 139 mmol/L 136-145 [facility] Work Phone: WBC (Bld) [#/Vol] 9.3 10*3/uL 4.4-11.0 [facility] Work Phone: Blood erythrocytes count (nu mber/volume)on 03-15-2022 RBC (Bld) [#/Vol] 3.12 10*6/uL 4.6-6.2 [facility] Work Phone: Blood hemoglobin measurement (mass/volume)on 03-15-2022 Hemoglobin (Bld) [Mass/Vol] 9.9 g/dL 13.0-16.5 [facility] Work Phone: Blood lymphocytes/100 leukoc yteson 03-15-2022 Lymphocytes/100 WBC (Bld) 16.5 % 19-41 [facility] Work Phone: Blood monocytes/100 leukocyt eson 03-15-2022 Monocytes/100 WBC (Bld) 5.6 % 0-10 [facility] Work Phone: [phone] Blood platelet mean volumeon 03-15-2022 Platelet mean volume (Bld) [Entitic vol] 9.9 fL 6.2-12.0 [facility] Work Phone: [phone] Determination of erythrocyte mean corpuscular volume (MCV)on 03-15-2022 MCV (RBC) [Entitic vol] 100.6 fL 80-94 [facility] Work Phone: [phone] Hematocrit Auto (Bld) [Volum e fraction]on 03-15-2022 Hematocrit (Bld) [Volume fraction] 31.4 % 40-54 [facility] Work Phone: [phone] Iron measurement (mass/mass) on 03-15-2022 Iron (Unsp spec) [Mass/Mass] 69 ug/dL 65-175 [facility] Work Phone: [phone] Laboratory - Chemistry and C hemistry - challengeon 03-15-2022 CO2 [Moles/Vol] 25.0 mmol/L 21.0-32.0 [facility] Work Phone: [phone] Urea nitrogen/Creatinine [Mass ratio] 31.6 mg/mg 10-20 [facility] Work Phone: [phone] Laboratory - Hematology and Cell countson 03-15-2022 Erythrocyte distribution width (RBC) [Entitic vol] 56.5 fL 35.1-43.9 [facility] Work Phone: [phone] Erythrocyte distribution width (RBC) [Ratio] 15.5 % 11.6-14.6 [facility] Work Phone: [phone] Immature granulocytes/100 WBC (Bld) 1.400 % 0.0-0.9 [facility] Work Phone: [phone] Comment on above: IG% - Immature Granu locytes (promyelocytes, myelocytes and metamyelocytes) > 1% indicates that a LEFT SHIFT is Present. MCH (RBC) [Entitic mass] 31.7 pg 27.0-32.0 [facility] Work Phone: Nucleated RBC/100 WBC (Bld) [Ratio] 0 % 0-5 [facility] Work Phone: MCHC Auto (RBC) [Mass/Vol]on 03-15-2022 MCHC (RBC) [Mass/Vol] 31.5 g/dL 32-36 [facility] Work Phone: No Panel Informationon 03-15 Estimated Creatinine Clearance Calc 17.61 ml/min [facility] Work Phone: [phone] Estimated GFR (MDRD) Amer 27 mL/min >60 [facility] Work Phone: [phone] Comment on above: GFR Calc Estimated GFR (MDRD) Non-Af Amer 22 mL/min >60 [facility] Work Phone: Comment on above: Non- GFR Calc Parathyroid Hormone (Intact) 89.0 pg/mL 18.4-80.1 [facility] Work Phone: Total Iron Binding Capacity 254 ug/dL 250-450 [facility] Work Phone: Platelets bldon 03-15-2022 Platelets (Bld) [#/Vol] 134 10*3/uL 150-450 [facility] Work Phone: Serum or plasma albumin aubree urement (mass/volume)on 03-15-2022 Albumin [Mass/Vol] 3.1 g/dL 3.2-5.0 [facility] Work Phone: [phone] Serum or plasma calcium aubree urement (mass/volume)on 03-15-2022 Calcium [Mass/Vol] 8.9 mg/dL 8.5-10.1 [facility] Work Phone: Serum or plasma creatinine m easurement (mass/volume)on 03-15-2022 Creatinine [Mass/Vol] 2.91 mg/dL 0.70-1.30 [facility] Work Phone: Comment on above: The validity of the calculated GFR & GFRAA in patients over 70 years has not been determined. Clinical correlation is essential. Serum or plasma ferritin laurie surement (mass/volume)on 03-15-2022 Ferritin [Mass/Vol] 237 ng/mL 26-388 [facility] Work Phone: Serum or plasma iron saturat ion measurement (mass fraction)on 03-15-2022 Iron saturation [Mass fraction] 27.2 % 15.0-55.0 [facility] Work Phone: Serum or plasma urea nitroge n measurement (mass/volume)on 03-15-2022 Urea nitrogen [Mass/Vol] 92 mg/dL 7-18 [facility] Work Phone: Absolute lymphocyte counton 02-15-2022 Lymphocytes Auto (Unsp spec) [#/Vol] 1.47 10*3/uL 0.83-4.51 [facility] Work Phone: Basophil percentageon 2021 Basophil percentage 3.3 mg/dL 2.5-4.9 [facility] Work Phone: Basophils/100 WBC (Bld) 0.2 % 0-1 [facility] Work Phone: Chloride [Moles/Vol] 110 mmol/L 98-107 [facility] Work Phone: Eosinophils/100 WBC (Bld) 1.4 % 0-5 [facility] Work Phone: Glucose [Mass/Vol] 139 mg/dL 74-106 [facility] Work Phone: Comment on above: Fasting Glucose resu lt greater than or equal to 126 mg/dL suggests DIABETES MELLITUS per A.D.A. criteria. Neutrophils (Bld) [#/Vol] 7.7 10*3/uL 2.0-7.7 [facility] Work Phone: Neutrophils/100 WBC (Bld) 76.8 % 47-70 [facility] Work Phone: Potassium [Moles/Vol] 4.7 mmol/L 3.5-5.1 [facility] Work Phone: Sodium [Moles/Vol] 141 mmol/L 136-145 [facility] Work Phone: WBC (Bld) [#/Vol] 10.0 10*3/uL 4.4-11.0 [facility] Work Phone: Blood erythrocytes count (nu mber/volume)on 02-15-2022 RBC (Bld) [#/Vol] 3.28 10*6/uL 4.6-6.2 [facility] Work Phone: Blood hemoglobin measurement (mass/volume)on 02-15-2022 Hemoglobin (Bld) [Mass/Vol] 10.6 g/dL 13.0-16.5 [facility] Work Phone: Blood lymphocytes/100 leukoc yteson 02-15-2022 Lymphocytes/100 WBC (Bld) 14.8 % 19-41 [facility] Work Phone: [phone] Blood monocytes/100 leukocyt eson 02-15-2022 Monocytes/100 WBC (Bld) 6.4 % 0-10 [facility] Work Phone: Blood platelet mean volumeon 02-15-2022 Platelet mean volume (Bld) [Entitic vol] 10.0 fL 6.2-12.0 [facility] Work Phone: Determination of erythrocyte mean corpuscular volume (MCV)on 02-15-2022 MCV (RBC) [Entitic vol] 98.8 fL 80-94 [facility] Work Phone: Hematocrit Auto (Bld) [Volum e fraction]on 02-15-2022 Hematocrit (Bld) [Volume fraction] 32.4 % 40-54 [facility] Work Phone: Iron measurement (mass/mass) on 02-15-2022 Iron (Unsp spec) [Mass/Mass] 78 ug/dL 65-175 [facility] Work Phone: Laboratory - Chemistry and C hemistry - challengeon 02-15-2022 CO2 [Moles/Vol] 27.0 mmol/L 21.0-32.0 [facility] Work Phone: [phone] Urea nitrogen/Creatinine [Mass ratio] 34.2 mg/mg 10-20 [facility] Work Phone: [phone] Laboratory - Hematology and Cell countson 02-15-2022 Erythrocyte distribution width (RBC) [Entitic vol] 53.1 fL 35.1-43.9 [facility] Work Phone: [phone] Erythrocyte distribution width (RBC) [Ratio] 14.8 % 11.6-14.6 [facility] Work Phone: [phone] Immature granulocytes/100 WBC (Bld) 0.400 % 0.0-0.9 [facility] Work Phone: [phone] Comment on above: IG% - Immature Granu locytes (promyelocytes, myelocytes and metamyelocytes) > 1% indicates that a LEFT SHIFT is Present. MCH (RBC) [Entitic mass] 32.3 pg 27.0-32.0 [facility] Work Phone: [phone] Nucleated RBC/100 WBC (Bld) [Ratio] 0 % 0-5 [facility] Work Phone: [phone] MCHC Auto (RBC) [Mass/Vol]on 02-15-2022 MCHC (RBC) [Mass/Vol] 32.7 g/dL 32-36 [facility] Work Phone: [phone] No Panel Informationon 02-15 Estimated GFR (MDRD) Amer 37 mL/min >60 [facility] Work Phone: [phone] Comment on above: GFR Calc Estimated GFR (MDRD) Non-Af Amer 31 mL/min >60 [facility] Work Phone: [phone] Comment on above: Non- GFR Calc Total Iron Binding Capacity 250 ug/dL 250-450 [facility] Work Phone: [phone] Platelets bldon 02-15-2022 Platelets (Bld) [#/Vol] 127 10*3/uL 150-450 [facility] Work Phone: [phone] Serum or plasma albumin aubree urement (mass/volume)on 02-15-2022 Albumin [Mass/Vol] 3.2 g/dL 3.2-5.0 [facility] Work Phone: Serum or plasma calcium aubree urement (mass/volume)on 02-15-2022 Calcium [Mass/Vol] 9.3 mg/dL 8.5-10.1 [facility] Work Phone: Serum or plasma creatinine m easurement (mass/volume)on 02-15-2022 Creatinine [Mass/Vol] 2.19 mg/dL 0.70-1.30 [facility] Work Phone: Comment on above: The validity of the calculated GFR & GFRAA in patients over 70 years has not been determined. Clinical correlation is essential. Serum or plasma ferritin laurie surement (mass/volume)on 02-15-2022 Ferritin [Mass/Vol] 257 ng/mL 26-388 [facility] Work Phone: Serum or plasma iron saturat ion measurement (mass fraction)on 02-15-2022 Iron saturation [Mass fraction] 31.2 % 15.0-55.0 [facility] Work Phone: Serum or plasma urea nitroge n measurement (mass/volume)on 02-15-2022 Urea nitrogen [Mass/Vol] 75 mg/dL 7-18 [facility] Work Phone: Basophil percentageon 2021 Chloride [Moles/Vol] 105 mmol/L 98-107 [facility] Work Phone: [phone] Glucose [Mass/Vol] 120 mg/dL 74-106 [facility] Work Phone: Comment on above: Fasting Glucose resu lt from 100 to 125 mg/dL suggests IMPAIRED HOMEOSTASIS per A.D.A. criteria. Potassium [Moles/Vol] 4.8 mmol/L 3.5-5.1 [facility] Work Phone: [phone] Sodium [Moles/Vol] 138 mmol/L 136-145 [facility] Work Phone: [phone] WBC (Bld) [#/Vol] 10.6 10*3/uL 4.4-11.0 [facility] Work Phone: Blood erythrocytes count (nu mber/volume)on 01-25-2022 RBC (Bld) [#/Vol] 4.06 10*6/uL 4.6-6.2 [facility] Work Phone: [phone] Blood hemoglobin measurement (mass/volume)on 01-25-2022 Hemoglobin (Bld) [Mass/Vol] 12.7 g/dL 13.0-16.5 [facility] Work Phone: [phone] Blood platelet mean volumeon 01-25-2022 Platelet mean volume (Bld) [Entitic vol] 10.6 fL 6.2-12.0 [facility] Work Phone: [phone] Determination of erythrocyte mean corpuscular volume (MCV)on 01-25-2022 MCV (RBC) [Entitic vol] 97.5 fL 80-94 [facility] Work Phone: [phone] Hematocrit Auto (Bld) [Volum e fraction]on 01-25-2022 Hematocrit (Bld) [Volume fraction] 39.6 % 40-54 [facility] Work Phone: [phone] Laboratory - Chemistry and C hemistry - challengeon 01-25-2022 CO2 [Moles/Vol] 31.0 mmol/L 21.0-32.0 [facility] Work Phone: [phone] Urea nitrogen/Creatinine [Mass ratio] 34.9 mg/mg 10-20 [facility] Work Phone: [phone] Laboratory - Hematology and Cell countson 01-25-2022 Erythrocyte distribution width (RBC) [Entitic vol] 52.1 fL 35.1-43.9 [facility] Work Phone: [phone] Erythrocyte distribution width (RBC) [Ratio] 14.5 % 11.6-14.6 [facility] Work Phone: [phone] MCH (RBC) [Entitic mass] 31.3 pg 27.0-32.0 [facility] Work Phone: [phone] MCHC Auto (RBC) [Mass/Vol]on 01-25-2022 MCHC (RBC) [Mass/Vol] 32.1 g/dL 32-36 [facility] Work Phone: No Panel Informationon 01-25 Estimated GFR (MDRD) Amer 38 mL/min >60 [facility] Work Phone: Comment on above: GFR Calc Estimated GFR (MDRD) Non-Af Amer 31 mL/min >60 [facility] Work Phone: Comment on above: Non- GFR Calc Platelets bldon 01-25-2022 Platelets (Bld) [#/Vol] 151 10*3/uL 150-450 [facility] Work Phone: Serum or plasma calcium aubree urement (mass/volume)on 01-25-2022 Calcium [Mass/Vol] 8.8 mg/dL 8.5-10.1 [facility] Work Phone: Serum or plasma creatinine m easurement (mass/volume)on 01-25-2022 Creatinine [Mass/Vol] 2.18 mg/dL 0.70-1.30 [facility] Work Phone: Comment on above: The validity of the calculated GFR & GFRAA in patients over 70 years has not been determined. Clinical correlation is essential. Serum or plasma urea nitroge n measurement (mass/volume)on 01-25-2022 Urea nitrogen [Mass/Vol] 76 mg/dL 7-18 [facility] Work Phone: Thin prep Papanicolaou smear with manual screeningon 01-25-2022 Thin prep Papanicolaou smear with manual screening 2 5-15 [facility] Work Phone: Whole blood hemoglobin A1c/t otal hemoglobin ratio (mass fraction)on 01-25-2022 HbA1c (Bld) [Mass fraction] 6.6 % 3.8-5.6 [facility] Work Phone: Comment on above: Normal < 5.7 % Predi abetic 5.7 - 6.4 % Diabetic >or= 6.5 % Please note range changes. Absolute lymphocyte counton 01-18-2022 Lymphocytes Auto (Unsp spec) [#/Vol] 1.51 10*3/uL 0.83-4.51 [facility] Work Phone: Basophil percentageon 2021 Basophil percentage 2.4 mg/dL 2.5-4.9 [facility]: Basophils/100 WBC (Bld) 0.3 % 0-1 [facility] Work Phone: Chloride [Moles/Vol] 105 mmol/L 98-107 [facility]: Eosinophils/100 WBC (Bld) 0.6 % 0-5 [facility] Work Phone: Glucose [Mass/Vol] 225 mg/dL 74-106 [facility] Work Phone: Comment on above: Glucose result great er than or equal to 200 mg/dLsuggests DIABETES MELLITUS per A.D.A. criteria. Neutrophils (Bld) [#/Vol] 7.7 10*3/uL 2.0-7.7 [facility] Work Phone: Neutrophils/100 WBC (Bld) 77.2 % 47-70 [facility] Work Phone: Potassium [Moles/Vol] 4.4 mmol/L 3.5-5.1 [facility] Work Phone: Sodium [Moles/Vol] 138 mmol/L 136-145 [facility] Work Phone: WBC (Bld) [#/Vol] 9.9 10*3/uL 4.4-11.0 [facility] Work Phone: Blood erythrocytes count (nu mber/volume)on 01-18-2022 RBC (Bld) [#/Vol] 3.88 10*6/uL 4.6-6.2 [facility] Work Phone: Blood hemoglobin measurement (mass/volume)on 01-18-2022 Hemoglobin (Bld) [Mass/Vol] 12.3 g/dL 13.0-16.5 [facility] Work Phone: Blood lymphocytes/100 leukoc yteson 01-18-2022 Lymphocytes/100 WBC (Bld) 15.2 % 19-41 [facility] Work Phone: Blood monocytes/100 leukocyt eson 01-18-2022 Monocytes/100 WBC (Bld) 6.3 % 0-10 [facility] Work Phone: Blood platelet mean volumeon 01-18-2022 Platelet mean volume (Bld) [Entitic vol] 10.9 fL 6.2-12.0 [facility] Work Phone: Determination of erythrocyte mean corpuscular volume (MCV)on 01-18-2022 MCV (RBC) [Entitic vol] 95.6 fL 80-94 [facility] Work Phone: Hematocrit Auto (Bld) [Volum e fraction]on 01-18-2022 Hematocrit (Bld) [Volume fraction] 37.1 % 40-54 [facility] Work Phone: Iron measurement (mass/mass) on 01-18-2022 Iron (Unsp spec) [Mass/Mass] 94 ug/dL 65-175 [facility] Work Phone: Laboratory - Chemistry and C hemistry - challengeon 01-18-2022 CO2 [Moles/Vol] 27.0 mmol/L 21.0-32.0 [facility] Work Phone: Urea nitrogen/Creatinine [Mass ratio] 37.1 mg/mg 10-20 [facility] Work Phone: Laboratory - Hematology and Cell countson 01-18-2022 Erythrocyte distribution width (RBC) [Entitic vol] 51.5 fL 35.1-43.9 [facility] Work Phone: Erythrocyte distribution width (RBC) [Ratio] 14.8 % 11.6-14.6 [facility] Work Phone: Immature granulocytes/100 WBC (Bld) 0.400 % 0.0-0.9 [facility] Work Phone: Comment on above: IG% - Immature Granu locytes (promyelocytes, myelocytes and metamyelocytes) > 1% indicates that a LEFT SHIFT is Present. MCH (RBC) [Entitic mass] 31.7 pg 27.0-32.0 [facility] Work Phone: Nucleated RBC/100 WBC (Bld) [Ratio] 0 % 0-5 [facility] Work Phone: MCHC Auto (RBC) [Mass/Vol]on 01-18-2022 MCHC (RBC) [Mass/Vol] 33.2 g/dL 32-36 [facility] Work Phone: No Panel Informationon 01-18 Estimated GFR (MDRD) Amer 37 mL/min >60 [facility] Work Phone: Comment on above: GFR Calc Estimated GFR (MDRD) Non-Af Amer 31 mL/min >60 [facility] Work Phone: Comment on above: Non- GFR Calc Total Iron Binding Capacity 239 ug/dL 250-450 [facility] Work Phone: Platelets bldon 01-18-2022 Platelets (Bld) [#/Vol] 143 10*3/uL 150-450 [facility] Work Phone: Serum or plasma albumin aubree urement (mass/volume)on 01-18-2022 Albumin [Mass/Vol] 3.2 g/dL 3.2-5.0 [facility] Work Phone: Serum or plasma calcium aubree urement (mass/volume)on 01-18-2022 Calcium [Mass/Vol] 8.4 mg/dL 8.5-10.1 [facility] Work Phone: Serum or plasma creatinine m easurement (mass/volume)on 01-18-2022 Creatinine [Mass/Vol] 2.21 mg/dL 0.70-1.30 [facility] Work Phone: Comment on above: The validity of the calculated GFR & GFRAA in patients over 70 years has not been determined. Clinical correlation is essential. Serum or plasma ferritin laurie surement (mass/volume)on 01-18-2022 Ferritin [Mass/Vol] 241 ng/mL 26-388 [facility] Work Phone: Serum or plasma iron saturat ion measurement (mass fraction)on 01-18-2022 Iron saturation [Mass fraction] 39.3 % 15.0-55.0 [facility] Work Phone: Serum or plasma urea nitroge n measurement (mass/volume)on 01-18-2022 Urea nitrogen [Mass/Vol] 82 mg/dL 7-18 [facility] Work Phone: Absolute lymphocyte counton 12-21-2021 Lymphocytes Auto (Unsp spec) [#/Vol] 1.78 10*3/uL 0.83-4.51 [facility] Work Phone: Basophil percentageon 2021 Basophil percentage 2.6 mg/dL 2.5-4.9 [facility] Work Phone: Basophils/100 WBC (Bld) 0.5 % 0-1 [facility] Work Phone: Chloride [Moles/Vol] 107 mmol/L 98-107 [facility] Work Phone: Eosinophils/100 WBC (Bld) 4.2 % 0-5 [facility] Work Phone: Glucose [Mass/Vol] 159 mg/dL 74-106 [facility] Work Phone: Comment on above: Fasting Glucose resu lt greater than or equal to 126 mg/dL suggests DIABETES MELLITUS per A.D.A. criteria. Neutrophils (Bld) [#/Vol] 5.0 10*3/uL 2.0-7.7 [facility] Work Phone: Neutrophils/100 WBC (Bld) 64.1 % 47-70 [facility] Work Phone: Potassium [Moles/Vol] 4.5 mmol/L 3.5-5.1 [facility] Work Phone: [phone] Sodium [Moles/Vol] 138 mmol/L 136-145 [facility] Work Phone: [phone] WBC (Bld) [#/Vol] 7.8 10*3/uL 4.4-11.0 [facility] Work Phone: [phone] Blood erythrocytes count (nu mber/volume)on 12-21-2021 RBC (Bld) [#/Vol] 3.63 10*6/uL 4.6-6.2 [facility] Work Phone: [phone] Blood hemoglobin measurement (mass/volume)on 12-21-2021 Hemoglobin (Bld) [Mass/Vol] 11.3 g/dL 13.0-16.5 [facility] Work Phone: [phone] Blood lymphocytes/100 leukoc yteson 12-21-2021 Lymphocytes/100 WBC (Bld) 22.7 % 19-41 [facility] Work Phone: [phone] Blood monocytes/100 leukocyt eson 12-21-2021 Monocytes/100 WBC (Bld) 8.0 % 0-10 [facility] Work Phone: [phone] Blood platelet mean volumeon 12-21-2021 Platelet mean volume (Bld) [Entitic vol] 10.4 fL 6.2-12.0 [facility] Work Phone: [phone] Determination of erythrocyte mean corpuscular volume (MCV)on 12-21-2021 MCV (RBC) [Entitic vol] 95.0 fL 80-94 [facility] Work Phone: [phone] Hematocrit Auto (Bld) [Volum e fraction]on 12-21-2021 Hematocrit (Bld) [Volume fraction] 34.5 % 40-54 [facility] Work Phone: [phone] Iron measurement (mass/mass) on 12-21-2021 Iron (Unsp spec) [Mass/Mass] 79 ug/dL 65-175 [facility] Work Phone: [phone] Laboratory - Chemistry and C hemistry - challengeon 12-21-2021 CO2 [Moles/Vol] 26.0 mmol/L 21.0-32.0 [facility] Work Phone: [phone] Urea nitrogen/Creatinine [Mass ratio] 31.5 mg/mg 10-20 [facility] Work Phone: [phone] Laboratory - Hematology and Cell countson 12-21-2021 Erythrocyte distribution width (RBC) [Entitic vol] 51.0 fL 35.1-43.9 [facility] Work Phone: [phone] Erythrocyte distribution width (RBC) [Ratio] 14.8 % 11.6-14.6 [facility] Work Phone: [phone] Immature granulocytes/100 WBC (Bld) 0.500 % 0.0-0.9 [facility] Work Phone: [phone] Comment on above: IG% - Immature Granu locytes (promyelocytes, myelocytes and metamyelocytes) > 1% indicates that a LEFT SHIFT is Present. MCH (RBC) [Entitic mass] 31.1 pg 27.0-32.0 [facility] Work Phone: [phone] Nucleated RBC/100 WBC (Bld) [Ratio] 0 % 0-5 [facility] Work Phone: [phone] MCHC Auto (RBC) [Mass/Vol]on 12-21-2021 MCHC (RBC) [Mass/Vol] 32.8 g/dL 32-36 [facility] Work Phone: [phone] No Panel Informationon 12-21 Estimated GFR (MDRD) Amer 32 mL/min >60 [facility] Work Phone: [phone] Comment on above: GFR Calc Estimated GFR (MDRD) Non-Af Amer 26 mL/min >60 [facility] Work Phone: [phone] Comment on above: Non- GFR Calc Parathyroid Hormone (Intact) 43.1 pg/mL 18.4-80.1 [facility] Work Phone: [phone] Total Iron Binding Capacity 228 ug/dL 250-450 [facility] Work Phone: [phone] Platelets bldon 12-21-2021 Platelets (Bld) [#/Vol] 140 10*3/uL 150-450 [facility] Work Phone: Serum or plasma albumin aubree urement (mass/volume)on 12-21-2021 Albumin [Mass/Vol] 3.0 g/dL 3.2-5.0 [facility] Work Phone: Serum or plasma calcium aubree urement (mass/volume)on 12-21-2021 Calcium [Mass/Vol] 8.9 mg/dL 8.5-10.1 [facility] Work Phone: Serum or plasma creatinine m easurement (mass/volume)on 12-21-2021 Creatinine [Mass/Vol] 2.54 mg/dL 0.70-1.30 [facility] Work Phone: Comment on above: The validity of the calculated GFR & GFRAA in patients over 70 years has not been determined. Clinical correlation is essential. Serum or plasma ferritin laurie surement (mass/volume)on 12-21-2021 Ferritin [Mass/Vol] 356 ng/mL 26-388 [facility] Work Phone: Serum or plasma iron saturat ion measurement (mass fraction)on 12-21-2021 Iron saturation [Mass fraction] 34.6 % 15.0-55.0 [facility] Work Phone: Serum or plasma urea nitroge n measurement (mass/volume)on 12-21-2021 Urea nitrogen [Mass/Vol] 80 mg/dL 7-18 [facility] Work Phone: Vital Signs Date Time Vital Sign Value Performing Clinician Facility 07-10-2025 15:27-0400 Body temperature 98.7 [degF] Dr. Rios Downey DO Work Phone: [facility] 07-10-2025 15:27-0400 Diastolic blood pressure 44 mm[Hg] Dr. Rios Downey DO Work Phone: [facility] 07-10-2025 15:27-0400 Heart rate 49 /min Dr. Rios Downey DO Work Phone: [facility] 07-10-2025 15:27-0400 Respiratory rate 17 /min Dr. Rios Downey DO Work Phone: [facility] 07-10-2025 15:27-0400 SaO2% (BldA) [Mass fraction] 97 % Dr. Rios Downey DO Work Phone: [facility] 07-10-2025 15:27-0400 Systolic blood pressure 104 mm[Hg] Dr. Rios Downey DO Work Phone: [facility] 07-10-2025 15:18-0400 Inhaled oxygen flow rate 2 L/min Dr. Rios Downey DO Work Phone: [facility] 07-10-2025 04:48-0400 Body mass index (BMI) [Ratio] 40.6 kg/m2 Dr. Rios Downey DO Work Phone: [facility] 07-10-2025 04:48-0400 Body weight 114.[address] Rios Downey DO Work Phone: [facility] 07-07-2025 09:57-0400 Body height 167.[address] Rios Downey DO Work Phone: [facility] 07-06-2025 20:00-0400 Diastolic blood pressure 94 mm[Hg] Dr. Rios Downey DO Work Phone: [facility] 07-06-2025 20:00-0400 Heart rate 57 /min Dr. Rios Downey DO Work Phone: [facility] 07-06-2025 20:00-0400 Respiratory rate 17 /min Dr. Rios Downey DO Work Phone: [facility] 07-06-2025 20:00-0400 SaO2% (BldA) [Mass fraction] 98 % Dr. Rios Downey DO Work Phone: [facility] 07-06-2025 20:00-0400 Systolic blood pressure 138 mm[Hg] Dr. Rios Downey DO Work Phone: [facility] 07-06-2025 19:54-0400 Body temperature 94.5 [degF] Dr. Rios Downey DO Work Phone: [facility] 07-06-2025 17:02-0400 Body mass index (BMI) [Ratio] 44.5 kg/m2 Dr. Rios Downey DO Work Phone: [facility] 07-06-2025 17:02-0400 Body weight 121.[address] Rios Downey DO Work Phone: [facility] 07-06-2025 16:42-0400 Inhaled oxygen flow rate 2.5 L/min Dr. Rios Downey DO Work Phone: [facility] 07-06-2025 15:28-0400 Body height 165.[address] Rios Downey DO Work Phone: [facility] 06-20-2025 15:07-0400 Body height 165.[address] Rios Downey DO Work Phone: [facility] 06-20-2025 15:07-0400 Body mass index (BMI) [Ratio] 38.9 kg/m2 Dr. Rios Downey DO Work Phone: [facility] 06-20-2025 15:07-0400 Body weight 106.[address] Rios Downey DO Work Phone: [facility] 06-20-2025 15:07-0400 Diastolic blood pressure 59 mm[Hg] Dr. Rios Downey DO Work Phone: [facility] 06-20-2025 15:07-0400 Heart rate 52 /min Dr. Rios Downey DO Work Phone: [facility] 06-20-2025 15:07-0400 Respiratory rate 18 /min Dr. Rios Downey DO Work Phone: [facility] 06-20-2025 15:07-0400 Systolic blood pressure 125 mm[Hg] Dr. Rios Downey DO Work Phone: [facility] 06-13-2025 10:26-0400 Body mass index (BMI) [Ratio] 40.1 kg/m2 Dr. Rios Downey DO Work Phone: [facility] 06-13-2025 10:26-0400 Body temperature 96.8 [degF] Dr. Rios Downey DO Work Phone: [facility] 06-13-2025 10:26-0400 Body weight 109.[address] Rios Downey DO Work Phone: [facility] 06-13-2025 10:26-0400 Diastolic blood pressure 70 mm[Hg] Dr. Rios Downey DO Work Phone: [facility] 06-13-2025 10:26-0400 Heart rate 54 /min Dr. Rios Downey DO Work Phone: [facility] 06-13-2025 10:26-0400 Inhaled oxygen flow rate 3 L/min Dr. Rios Downey DO Work Phone: [facility] 06-13-2025 10:26-0400 Respiratory rate 20 /min Dr. Rios Downey DO Work Phone: [facility] 06-13-2025 10:26-0400 SaO2% (BldA) [Mass fraction] 91 % Dr. Rios Downey DO Work Phone: [facility] 06-13-2025 10:26-0400 Systolic blood pressure 158 mm[Hg] Dr. Rios Downey DO Work Phone: [facility] 06-01-2025 00:42-0400 Body temperature 97.9 [degF] Dr. Rios Downey DO Work Phone: [facility] 06-01-2025 00:42-0400 Diastolic blood pressure 84 mm[Hg] Dr. Rios Downey DO Work Phone: [facility] 06-01-2025 00:42-0400 Heart rate 51 /min Dr. Rios Downey DO Work Phone: [facility] 06-01-2025 00:42-0400 Respiratory rate 19 /min Dr. Rios Downey DO Work Phone: [facility] 06-01-2025 00:42-0400 SaO2% (BldA) [Mass fraction] 100 % Dr. Rios Downey DO Work Phone: [facility] 06-01-2025 00:42-0400 Systolic blood pressure 144 mm[Hg] Dr. Rios Downey DO Work Phone: [facility] 05-31-2025 22:22-0400 Inhaled oxygen flow rate 5 L/min Dr. Rios Downey DO Work Phone: [facility] 05-31-2025 22:20-0400 Body mass index (BMI) [Ratio] 41 kg/m2 Dr. Rios Downey DO Work Phone: [facility] 05-31-2025 22:20-0400 Body weight 111.[address] Rios Downey DO Work Phone: [facility] 05-31-2025 22:00-0400 Body height 165.[address] Rios Downey DO Work Phone: [facility] 03-14-2025 08:07-0400 Body mass index (BMI) [Ratio] 39.7 kg/m2 Dr. Rios Downey DO Work Phone: [facility] 03-14-2025 08:07-0400 Body temperature 97.4 [degF] Dr. Rios Downey DO Work Phone: [facility] 03-14-2025 08:07-0400 Body weight 108.[address] Rios Downey DO Work Phone: [facility] 03-14-2025 08:07-0400 Diastolic blood pressure 83 mm[Hg] Dr. Rios Downey DO Work Phone: [facility] 03-14-2025 08:07-0400 Heart rate 50 /min Dr. Rios Downey DO Work Phone: [facility] 03-14-2025 08:07-0400 Inhaled oxygen flow rate 4 L/min Dr. Rios Downey DO Work Phone: [facility] 03-14-2025 08:07-0400 Respiratory rate 20 /min Dr. Rios Downey DO Work Phone: [facility] 03-14-2025 08:07-0400 SaO2% (BldA) [Mass fraction] 99 % Dr. Rios Downey DO Work Phone: [facility] 03-14-2025 08:07-0400 Systolic blood pressure 165 mm[Hg] Dr. Rios Downey DO Work Phone: [facility] 03-23-2024 15:00-0400 Body height 165.[address] Rios Downey Work Phone: [facility] 03-23-2024 15:00-0400 Body mass index (BMI) [Ratio] 38.9 kg/m2 Dr. Rios Downey Work Phone: [facility] 03-23-2024 15:00-0400 Body weight 106.[address] Rios Downey Work Phone: [facility] 03-23-2024 15:00-0400 Diastolic blood pressure 68 mm[Hg] Dr. Rios Downey Work Phone: [facility] 03-23-2024 15:00-0400 Heart rate 73 /min Dr. Rios Downey Work Phone: [facility] 03-23-2024 15:00-0400 Inhaled oxygen flow rate 5 L/min Dr. Rios Downey Work Phone: [facility] 03-23-2024 15:00-0400 Respiratory rate 22 /min Dr. Rios Downey Work Phone: [facility] 03-23-2024 15:00-0400 SaO2% (BldA) [Mass fraction] 96 % Dr. Rios Downey Work Phone: [facility] 03-23-2024 15:00-0400 Systolic blood pressure 111 mm[Hg] Dr. Rios Downey Work Phone: [facility] 02-19-2024 16:28-0400 Body temperature 97.6 [degF] [facility] 02-19-2024 16:28-0400 Diastolic blood pressure 72 mm[Hg] [facility] 02-19-2024 16:28-0400 Heart rate 52 /min [facility] 02-19-2024 16:28-0400 Respiratory rate 17 /min [facility] 02-19-2024 16:28-0400 SaO2% (BldA) [Mass fraction] 95 % [facility] 02-19-2024 16:28-0400 Systolic blood pressure 149 mm[Hg] [facility] 02-19-2024 13:00-0400 Inhaled oxygen flow rate 2 L/min [facility] 02-19-2024 12:32-0400 Body mass index (BMI) [Ratio] 39.4 kg/m2 [facility] 02-19-2024 12:32-0400 Body weight 107.4 kg [facility] 02-19-2024 11:34-0400 Body height 165.1 cm [facility] 02-16-2024 03:00-0400 Body temperature 97.7 [degF] [facility] 02-16-2024 03:00-0400 Diastolic blood pressure 100 mm[Hg] [facility] 02-16-2024 03:00-0400 Heart rate 57 /min [facility] 02-16-2024 03:00-0400 Respiratory rate 18 /min [facility] 02-16-2024 03:00-0400 SaO2% (BldA) [Mass fraction] 98 % [facility] 02-16-2024 03:00-0400 Systolic blood pressure 135 mm[Hg] [facility] 02-15-2024 23:56-0400 Body mass index (BMI) [Ratio] 38.6 kg/m2 [facility] 02-15-2024 23:56-0400 Body weight 105.4 kg [facility] 02-15-2024 22:56-0400 Body height 165.1 cm [facility] 02-15-2024 22:56-0400 Inhaled oxygen flow rate 2 L/min [facility] 11-23-2023 15:42-0500 Body height 165.[address] Rios Downey Work Phone: [facility] 11-23-2023 15:42-0500 Body mass index (BMI) [Ratio] 41.5 kg/m2 Dr. Rios Downey Work Phone: [facility] 11-23-2023 15:42-0500 Body temperature 97.4 [degF] Dr. Rios Downey Work Phone: [facility] 11-23-2023 15:42-0500 Body weight 113.[address] Rios Downey Work Phone: [facility] 11-23-2023 15:42-0500 Diastolic blood pressure 53 mm[Hg] Dr. Rios Downey Work Phone: [facility] 11-23-2023 15:42-0500 Heart rate 61 /min Dr. Rios Downey Work Phone: [facility] 11-23-2023 15:42-0500 Inhaled oxygen flow rate 2 L/min Dr. Rios Downey Work Phone: [facility] 11-23-2023 15:42-0500 Respiratory rate 16 /min Dr. Rios Downey Work Phone: [facility] 11-23-2023 15:42-0500 Systolic blood pressure 101 mm[Hg] Dr. Rios Downey Work Phone: [facility] 10-05-2023 07:44-0500 Body height 165.[address] Rios Downey Work Phone: [facility] 10-05-2023 07:44-0500 Body mass index (BMI) [Ratio] 41.4 kg/m2 Dr. Rios Downey Work Phone: [facility] 10-05-2023 07:44-0500 Body temperature 98.5 [degF] Dr. Rios Downey Work Phone: [facility] 10-05-2023 07:44-0500 Body weight 112.[address] Rios Downey Work Phone: [facility] 10-05-2023 07:44-0500 Diastolic blood pressure 59 mm[Hg] Dr. Rios Downey Work Phone: [facility] 10-05-2023 07:44-0500 Heart rate 65 /min Dr. Rios Downey Work Phone: [facility] 10-05-2023 07:44-0500 Inhaled oxygen flow rate 2 L/min Dr. Rios Downey Work Phone: [facility] 10-05-2023 07:44-0500 Respiratory rate 17 /min Dr. Rios Downey Work Phone: [facility] 10-05-2023 07:44-0500 SaO2% (BldA) [Mass fraction] 94 % Dr. Rios Downey Work Phone: [facility] 10-05-2023 07:44-0500 Systolic blood pressure 109 mm[Hg] Dr. Rios Downey Work Phone: [facility] 09-28-2023 15:55-0400 Body height 165.[address] Rios Downey Work Phone: [facility] 09-28-2023 15:55-0400 Body mass index (BMI) [Ratio] 41.4 kg/m2 Dr. Rios Downey Work Phone: [facility] 09-28-2023 15:55-0400 Body temperature 97.9 [degF] Dr. Rios Downey Work Phone: [facility] 09-28-2023 15:55-0400 Body weight 112.[address] Rios Downey Work Phone: [facility] 09-28-2023 15:55-0400 Diastolic blood pressure 72 mm[Hg] Dr. Rios Downey Work Phone: [facility] 09-28-2023 15:55-0400 Heart rate 54 /min Dr. Rios Downey Work Phone: [facility] 09-28-2023 15:55-0400 Inhaled oxygen flow rate 2 L/min Dr. Rios Downey Work Phone: [facility] 09-28-2023 15:55-0400 Respiratory rate 18 /min Dr. Rios Downey Work Phone: [facility] 09-28-2023 15:55-0400 SaO2% (BldA) [Mass fraction] 96 % Dr. Rios Downey Work Phone: [facility] 09-28-2023 15:55-0400 Systolic blood pressure 154 mm[Hg] Dr. Rios Downey Work Phone: [facility] 09-22-2023 16:45-0400 Body temperature 98.1 [degF] Dr. Rios Downey Work Phone: [facility] 09-22-2023 16:45-0400 Diastolic blood pressure 74 mm[Hg] Dr. Rios Downey Work Phone: [facility] 09-22-2023 16:45-0400 Heart rate 66 /min Dr. Rios Downey Work Phone: [facility] 09-22-2023 16:45-0400 Inhaled oxygen flow rate 5 L/min Dr. Rios Downey Work Phone: [facility] 09-22-2023 16:45-0400 Respiratory rate 18 /min Dr. Rios Downey Work Phone: [facility] 09-22-2023 16:45-0400 SaO2% (BldA) [Mass fraction] 95 % Dr. Rios Downey Work Phone: [facility] 09-22-2023 16:45-0400 Systolic blood pressure 143 mm[Hg] Dr. Rios Downey Work Phone: [facility] 09-22-2023 02:48-0400 Body mass index (BMI) [Ratio] 41.6 kg/m2 Dr. Rios Downey Work Phone: [facility] 09-22-2023 02:48-0400 Body weight 113.[address] Rios Downey Work Phone: [facility] 09-20-2023 22:50-0400 Inhaled oxygen concentration 30 % Dr. Rios Downey Work Phone: [facility] 09-17-2023 11:05-0400 Body height 165.[address] Rios Downey Work Phone: [facility] 09-16-2023 20:02-0400 Diastolic blood pressure 77 mm[Hg] Dr. Rios Downey Work Phone: [facility] 09-16-2023 20:02-0400 Heart rate 56 /min Dr. Rios Downey Work Phone: [facility] 09-16-2023 20:02-0400 Inhaled oxygen flow rate 6 L/min Dr. Rios Downey Work Phone: [facility] 09-16-2023 20:02-0400 Respiratory rate 14 /min Dr. Rios Downey Work Phone: [facility] 09-16-2023 20:02-0400 SaO2% (BldA) [Mass fraction] 99 % Dr. Rios Downey Work Phone: [facility] 09-16-2023 20:02-0400 Systolic blood pressure 144 mm[Hg] Dr. Rios Downey Work Phone: [facility] 09-16-2023 19:15-0400 Body temperature 96.6 [degF] Dr. Rios Downey Work Phone: [facility] 09-16-2023 16:12-0400 Body mass index (BMI) [Ratio] 43.5 kg/m2 Dr. Rios Downey Work Phone: [facility] 09-16-2023 16:12-0400 Body weight 118.[address] Rios Downey Work Phone: [facility] 09-16-2023 15:20-0400 Body height 165.[address] Rios Downey Work Phone: [facility] 08-31-2023 15:55-0400 Body temperature 96.9 [degF] Dr. Rios Downey Work Phone: [facility] 08-31-2023 15:55-0400 Diastolic blood pressure 83 mm[Hg] Dr. Rios Downey Work Phone: [facility] 08-31-2023 15:55-0400 Heart rate 60 /min Dr. Rios Downey Work Phone: [facility] 08-31-2023 15:55-0400 Inhaled oxygen flow rate 2 L/min Dr. Rios Downey Work Phone: [facility] 08-31-2023 15:55-0400 Respiratory rate 18 /min Dr. Rios Downey Work Phone: [facility] 08-31-2023 15:55-0400 SaO2% (BldA) [Mass fraction] 93 % Dr. Rios Downey Work Phone: [facility] 08-31-2023 15:55-0400 Systolic blood pressure 158 mm[Hg] Dr. Rios Downey Work Phone: [facility] 08-22-2023 15:36-0400 Body temperature 97.8 [degF] Dr. Rios Downey Work Phone: [facility] 08-22-2023 15:36-0400 Diastolic blood pressure 60 mm[Hg] Dr. Rios Downey Work Phone: [facility] 08-22-2023 15:36-0400 Heart rate 71 /min Dr. Rios Downey Work Phone: [facility] 08-22-2023 15:36-0400 Inhaled oxygen flow rate 3 L/min Dr. Rios Downey Work Phone: [facility] 08-22-2023 15:36-0400 Respiratory rate 16 /min Dr. Rios Downey Work Phone: [facility] 08-22-2023 15:36-0400 SaO2% (BldA) [Mass fraction] 100 % Dr. Rios Downey Work Phone: [facility] 08-22-2023 15:36-0400 Systolic blood pressure 124 mm[Hg] Dr. Rios Downey Work Phone: [facility] 08-22-2023 04:29-0400 Body mass index (BMI) [Ratio] 41.1 kg/m2 Dr. Rios Downey Work Phone: [facility] 08-22-2023 04:29-0400 Body weight 112.[address] Rios Downey Work Phone: [facility] 08-19-2023 11:06-0400 Body height 165.[address] Rios Downey Work Phone: [facility] 08-18-2023 16:35-0400 Diastolic blood pressure 52 mm[Hg] Dr. Rios Downey Work Phone: [facility] 08-18-2023 16:35-0400 Heart rate 61 /min Dr. Rios Downey Work Phone: [facility] 08-18-2023 16:35-0400 Respiratory rate 19 /min Dr. Rios Downey Work Phone: [facility] 08-18-2023 16:35-0400 SaO2% (BldA) [Mass fraction] 98 % Dr. Rios Downey Work Phone: [facility] 08-18-2023 16:35-0400 Systolic blood pressure 119 mm[Hg] Dr. Rios Downey Work Phone: [facility] 08-18-2023 15:00-0400 Body temperature 97.6 [degF] Dr. Rios Downey Work Phone: [facility] 08-18-2023 12:57-0400 Inhaled oxygen flow rate 4 L/min Dr. Rios Downey Work Phone: [facility] 08-18-2023 11:52-0400 Body height 165.[address] Rios Downey Work Phone: [facility] 08-18-2023 11:52-0400 Body mass index (BMI) [Ratio] 45.4 kg/m2 Dr. Rios Downey Work Phone: [facility] 08-18-2023 11:52-0400 Body weight 123.[address] Rios Downey Work Phone: [facility] 08-17-2023 17:59-0400 Body mass index (BMI) [Ratio] 39.9 kg/m2 Dr. Rios Downey Work Phone: [facility] 08-17-2023 17:59-0400 Body weight 108.[address] Rios Downey Work Phone: [facility] 08-17-2023 16:00-0400 Diastolic blood pressure 71 mm[Hg] Dr. Rios Downey Work Phone: [facility] 08-17-2023 16:00-0400 Heart rate 64 /min Dr. Rios Downey Work Phone: [facility] 08-17-2023 16:00-0400 Inhaled oxygen flow rate 4 L/min Dr. Rios Downey Work Phone: [facility] 08-17-2023 16:00-0400 Respiratory rate 16 /min Dr. Rios Downey Work Phone: [facility] 08-17-2023 16:00-0400 SaO2% (BldA) [Mass fraction] 99 % Dr. Rios Downey Work Phone: [facility] 08-17-2023 16:00-0400 Systolic blood pressure 117 mm[Hg] Dr. Rios Downey Work Phone: [facility] 08-16-2023 21:12-0400 Body temperature 98.2 [degF] Dr. Rios Downey Work Phone: [facility] 08-10-2023 20:37-0400 Inhaled oxygen flow rate 4 L/min Dr. Rios Downey Work Phone: [facility] 08-10-2023 20:37-0400 SaO2% (BldA) [Mass fraction] 92 % Dr. Rios Downey Work Phone: [facility] 08-10-2023 20:14-0400 Heart rate 81 /min Dr. Rios Downey Work Phone: [facility] 08-10-2023 20:14-0400 Respiratory rate 18 /min Dr. Rios Downey Work Phone: [facility] 08-10-2023 15:40-0400 Body temperature 97.3 [degF] Dr. Rios Downey Work Phone: [facility] 08-10-2023 15:40-0400 Diastolic blood pressure 74 mm[Hg] Dr. Rios Downey Work Phone: [facility] 08-10-2023 15:40-0400 Systolic blood pressure 147 mm[Hg] Dr. Rios Downey Work Phone: [facility] 08-10-2023 14:42-0400 Body height 165.[address] Rios Downey Work Phone: [facility] 08-10-2023 14:42-0400 Body weight 111.[address] Rios Downey Work Phone: [facility] 08-09-2023 06:00-0400 Body mass index (BMI) [Ratio] 40.8 kg/m2 Dr. Rios Downey Work Phone: [facility] 07-27-2023 07:09-0400 Inhaled oxygen flow rate 4 L/min Dr. Rios Downey Work Phone: [facility] 07-27-2023 07:09-0400 SaO2% (BldA) [Mass fraction] 99 % Dr. Rios Downey Work Phone: [facility] 07-27-2023 05:52-0400 Body mass index (BMI) [Ratio] 40.7 kg/m2 Dr. Rios Downey Work Phone: [facility] 07-27-2023 05:52-0400 Body weight 110.[address] Rios Downey Work Phone: [facility] 07-26-2023 16:00-0400 Body temperature 96.1 [degF] Dr. Rios Downey Work Phone: [facility] 07-26-2023 16:00-0400 Diastolic blood pressure 57 mm[Hg] Dr. Rios Downey Work Phone: [facility] 07-26-2023 16:00-0400 Heart rate 60 /min Dr. Rios Downey Work Phone: [facility] 07-26-2023 16:00-0400 Respiratory rate 16 /min Dr. Rios Downey Work Phone: [facility] 07-26-2023 16:00-0400 Systolic blood pressure 116 mm[Hg] Dr. Rios Downey Work Phone: [facility] 07-20-2023 16:11-0400 Body height 165.[address] Rios Downey Work Phone: [facility] 07-11-2023 11:29-0400 Inhaled oxygen flow rate 4 L/min Dr. Rios Downey Work Phone: [facility] 07-11-2023 10:49-0400 SaO2% (BldA) [Mass fraction] 98 % Dr. Rios Downey Work Phone: [facility] 07-10-2023 16:00-0400 Body temperature 96.9 [degF] Dr. Rios Downey Work Phone: [facility] 07-10-2023 16:00-0400 Diastolic blood pressure 66 mm[Hg] Dr. Rios Downey Work Phone: [facility] 07-10-2023 16:00-0400 Heart rate 68 /min Dr. Rios Downey Work Phone: [facility] 07-10-2023 16:00-0400 Respiratory rate 18 /min Dr. Rios Downey Work Phone: [facility] 07-10-2023 16:00-0400 Systolic blood pressure 159 mm[Hg] Dr. Rios Downey Work Phone: [facility] 07-09-2023 13:20-0400 Body mass index (BMI) [Ratio] 44.1 kg/m2 Dr. Rios Downey Work Phone: [facility] 07-09-2023 13:20-0400 Body weight 120.[address] Rios Downey Work Phone: [facility] 07-06-2023 15:30-0400 Body height 165.[address] Rios Downey Work Phone: [facility] 07-04-2023 19:55-0400 Inhaled oxygen concentration 92 % Dr. Rios Downey Work Phone: [facility] 07-03-2023 09:00-0400 Inhaled oxygen flow rate 4 L/min Dr. Rios Downey Work Phone: [facility] 07-03-2023 08:37-0400 Body temperature 97.8 [degF] Dr. Rios Downey Work Phone: [facility] 07-03-2023 08:37-0400 Diastolic blood pressure 75 mm[Hg] Dr. Rios Downey Work Phone: [facility] 07-03-2023 08:37-0400 Heart rate 60 /min Dr. Rios Downey Work Phone: [facility] 07-03-2023 08:37-0400 Respiratory rate 17 /min Dr. Rios Downey Work Phone: [facility] 07-03-2023 08:37-0400 SaO2% (BldA) [Mass fraction] 98 % Dr. Rios Downey Work Phone: [facility] 07-03-2023 08:37-0400 Systolic blood pressure 157 mm[Hg] Dr. Rios Downey Work Phone: [facility] 07-03-2023 04:47-0400 Body mass index (BMI) [Ratio] 44.1 kg/m2 Dr. Rios Downey Work Phone: [facility] 07-03-2023 04:47-0400 Body weight 120.[address] Rios Downey Work Phone: [facility] 07-01-2023 14:18-0400 Body height 165.[address] Rios Downey Work Phone: [facility] 06-29-2023 14:24-0400 Body temperature 97 [degF] [facility] 06-29-2023 14:24-0400 Diastolic blood pressure 63 mm[Hg] [facility] 06-29-2023 14:24-0400 Heart rate 66 /min [facility] 06-29-2023 14:24-0400 Inhaled oxygen flow rate 4 L/min [facility] 06-29-2023 14:24-0400 Respiratory rate 22 /min [facility] 06-29-2023 14:24-0400 SaO2% (BldA) [Mass fraction] 96 % [facility] 06-29-2023 14:24-0400 Systolic blood pressure 156 mm[Hg] [facility] 06-29-2023 12:55-0400 Body height 165.1 cm [facility] 06-29-2023 12:55-0400 Body mass index (BMI) [Ratio] 44.1 kg/m2 [facility] 06-29-2023 12:55-0400 Body weight 120.3 kg [facility] 01-31-2023 15:27-0500 Body height 165.[address] Jennifer Lu Work Phone: [facility] 01-31-2023 15:27-0500 Body mass index (BMI) [Ratio] 42.5 kg/m2 Dr. Jennifer Lu Work Phone: [facility] 01-31-2023 15:27-0500 Body weight 116.[address] Jennifer Lu Work Phone: [facility] 01-31-2023 15:27-0500 Diastolic blood pressure 78 mm[Hg] Dr. Jennifer Lu Work Phone: [facility] 01-31-2023 15:27-0500 Heart rate 74 /min Dr. Jennifer Lu Work Phone: [facility] 01-31-2023 15:27-0500 Inhaled oxygen flow rate 2 L/min Dr. Jennifer Lu Work Phone: [facility] 01-31-2023 15:27-0500 Respiratory rate 20 /min Dr. Jennifer Lu Work Phone: [facility] 01-31-2023 15:27-0500 Systolic blood pressure 129 mm[Hg] Dr. Jennifer Lu Work Phone: [facility] 10-07-2022 13:47-0500 Body height 165.[address] Jennifer Lu Work Phone: [facility] 10-07-2022 13:47-0500 Body mass index (BMI) [Ratio] 44.1 kg/m2 Dr. Jennifer uL Work Phone: [facility] 10-07-2022 13:47-0500 Body temperature 98.4 [degF] Dr. Jennifer Lu Work Phone: [facility] 10-07-2022 13:47-0500 Body weight 120.[address] Jennifer Lu Work Phone: [facility] 10-07-2022 13:47-0500 Diastolic blood pressure 55 mm[Hg] Dr. Jennifer Lu Work Phone: [facility] 10-07-2022 13:47-0500 Heart rate 62 /min Dr. Jennifer Lu Work Phone: [facility] 10-07-2022 13:47-0500 Inhaled oxygen flow rate 2 L/min Dr. Jennifer Lu Work Phone: [facility] 10-07-2022 13:47-0500 Respiratory rate 16 /min Dr. Jennifer Lu Work Phone: [facility] 10-07-2022 13:47-0500 SaO2% (BldA) [Mass fraction] 99 % Dr. Jennifer Lu Work Phone: [facility] 10-07-2022 13:47-0500 Systolic blood pressure 112 mm[Hg] Dr. Jennifer Lu Work Phone: [facility] 07-12-2022 16:10-0400 Body height 165.[address] Jennifer Lu Work Phone: [facility] Work Phone: 07-12-2022 16:10-0400 Body temperature 97 [degF] Dr. Jennifer Lu Work Phone: [facility] Work Phone: 07-12-2022 16:10-0400 Diastolic blood pressure 58 mm[Hg] Dr. Jennifer Lu Work Phone: [facility] Work Phone: 07-12-2022 16:10-0400 Heart rate 61 /min Dr. Jennifer Lu Work Phone: [facility] Work Phone: 07-12-2022 16:10-0400 Inhaled oxygen flow rate 4 L/min Dr. Jennifer Lu Work Phone: [facility] Work Phone: 07-12-2022 16:10-0400 Respiratory rate 18 /min Dr. Jennifer Lu Work Phone: [facility] Work Phone: 07-12-2022 16:10-0400 SaO2% (BldA) [Mass fraction] 100 % Dr. Jennifer Lu Work Phone: [facility] Work Phone: 07-12-2022 16:10-0400 Systolic blood pressure 131 mm[Hg] Dr. Jennifer Lu Work Phone: [facility] Work Phone: 06-16-2022 15:14-0400 Heart rate 67 /min Dr. Jennifer Lu Work Phone: [facility] Work Phone: 06-16-2022 15:05-0400 Body mass index (BMI) [Ratio] 43.7 kg/m2 Dr. Jennifer Lu Work Phone: [facility] Work Phone: 06-16-2022 15:05-0400 Body weight 119.[address] Jennifer Lu Work Phone: [facility] Work Phone: 06-16-2022 15:05-0400 Diastolic blood pressure 64 mm[Hg] Dr. Jennifer Lu Work Phone: [facility] Work Phone: 06-16-2022 15:05-0400 Inhaled oxygen flow rate 4 L/min Dr. Jennifer uL Work Phone: [facility] Work Phone: 06-16-2022 15:05-0400 Respiratory rate 20 /min Dr. Jennifer Lu Work Phone: [facility] Work Phone: 06-16-2022 15:05-0400 Systolic blood pressure 102 mm[Hg] Dr. Jennifer Lu Work Phone: [facility] Work Phone: 06-14-2022 15:09-0400 Body height 165.[address] Jennifer Lu Work Phone: [facility] Work Phone: 06-14-2022 15:09-0400 Body mass index (BMI) [Ratio] 44.7 kg/m2 Dr. Jennifer Lu Work Phone: [facility] Work Phone: 06-14-2022 15:09-0400 Body temperature 97.9 [degF] Dr. Jennifer Lu Work Phone: [facility] Work Phone: 06-14-2022 15:09-0400 Body weight 122.[address] Jennifer Lu Work Phone: [facility] Work Phone: 06-14-2022 15:09-0400 Diastolic blood pressure 39 mm[Hg] Dr. Jennifer Lu Work Phone: [facility] Work Phone: 06-14-2022 15:09-0400 Heart rate 56 /min Dr. Jennifer Lu Work Phone: [facility] Work Phone: 06-14-2022 15:09-0400 Inhaled oxygen flow rate 4 L/min Dr. Jennifer Lu Work Phone: [facility] Work Phone: 06-14-2022 15:09-0400 Respiratory rate 18 /min Dr. Jennifer Lu Work Phone: [facility] Work Phone: 06-14-2022 15:09-0400 SaO2% (BldA) [Mass fraction] 100 % Dr. Jennifer Lu Work Phone: [facility] Work Phone: 06-14-2022 15:09-0400 Systolic blood pressure 99 mm[Hg] Dr. Jennifer Lu Work Phone: [facility] Work Phone: 04-16-2022 13:16-0400 Inhaled oxygen flow rate 4 L/min Dr. Jennifer Lu Work Phone: [facility] Work Phone: 04-16-2022 13:16-0400 SaO2% (BldA) [Mass fraction] 95 % Dr. Jennifer Lu Work Phone: [facility] Work Phone: 04-16-2022 12:47-0400 Body height 165.[address] Jennifer Lu Work Phone: [facility] Work Phone: 04-16-2022 12:47-0400 Body mass index (BMI) [Ratio] 43.7 kg/m2 Dr. Jennifer Lu Work Phone: [facility] Work Phone: 04-16-2022 12:47-0400 Body temperature 97.5 [degF] Dr. Jennifer Lu Work Phone: [facility] Work Phone: 04-16-2022 12:47-0400 Body weight 119.[address] Jennifer Lu Work Phone: [facility] Work Phone: 04-16-2022 12:47-0400 Diastolic blood pressure 70 mm[Hg] Dr. Jennifer Lu Work Phone: [facility] Work Phone: 04-16-2022 12:47-0400 Heart rate 58 /min Dr. Jennifer Lu Work Phone: [facility] Work Phone: 04-16-2022 12:47-0400 Systolic blood pressure 110 mm[Hg] Dr. Jennifer Lu Work Phone: [facility] Work Phone: 03-15-2022 14:47-0400 Body height 165.[address] Jennifer Lu Work Phone: [facility] Work Phone: 03-15-2022 14:47-0400 Body mass index (BMI) [Ratio] 41.5 kg/m2 Dr. Jennifer Lu Work Phone: [facility] Work Phone: 03-15-2022 14:47-0400 Body temperature 97.9 [degF] Dr. Jennifer Lu Work Phone: [facility] Work Phone: 03-15-2022 14:47-0400 Body weight 113.[address] Jennifer Lu Work Phone: [facility] Work Phone: 03-15-2022 14:47-0400 Diastolic blood pressure 61 mm[Hg] Dr. Jennifer Lu Work Phone: [facility] Work Phone: 03-15-2022 14:47-0400 Heart rate 74 /min Dr. Jennifer Lu Work Phone: [facility] Work Phone: 03-15-2022 14:47-0400 Inhaled oxygen flow rate 4 L/min Dr. Jennifer Lu Work Phone: [facility] Work Phone: 03-15-2022 14:47-0400 Respiratory rate 20 /min Dr. Jennifer Lu Work Phone: [facility] Work Phone: 03-15-2022 14:47-0400 SaO2% (BldA) [Mass fraction] 100 % Dr. Jennifer Lu Work Phone: [facility] Work Phone: 03-15-2022 14:47-0400 Systolic blood pressure 128 mm[Hg] Dr. Jennifer Lu Work Phone: [facility] Work Phone: 12-07-2021 14:36-0500 Body mass index (BMI) [Ratio] 42.9 kg/m2 Dr. Jennifer Lu Work Phone: [facility] Work Phone: 12-07-2021 14:36-0500 Body weight 117.[address] Jennifer Lu Work Phone: [facility] Work Phone: 12-07-2021 14:36-0500 Diastolic blood pressure 72 mm[Hg] Dr. Jennifer Lu Work Phone: [facility] Work Phone: 12-07-2021 14:36-0500 Heart rate 49 /min Dr. Jennifer Lu Work Phone: [facility] Work Phone: 12-07-2021 14:36-0500 Systolic blood pressure 134 mm[Hg] Dr. Jennifer Lu Work Phone: [facility] Work Phone: Encounters Encounter Date Encounter Type Care Provider Facility Start: 07-17-2025 ambulatory [facility] :[facility] Start: 07-10-2025 Dr. Eladio Lucas MD -[facility] Work Phone: Start: 07-09-2025 Dr. Eladio Lucas MD -[facility] Work Phone: Start: 07-08-2025 Dr. Eladio Lucas MD -[facility] Work Phone: Start: 07-08-2025 ambulatory Christian Shook [facility] Start: 07-08-2025 Dr. Christian Shook MD -[facility] Start: 07-07-2025 Dr. Woody Brunson DO -[facility] Work Phone: Start: 07-06-2025 ambulatory Mikey Macias Facility:[facility] Start: 07-06-2025 End: 07-10-2025 Evaluation and management of inpatient Dr. Rios Downey DO Work Phone: -[facility] Care Unit Start: 07-06-2025 End: 07-10-2025 Dr. Mikey Macias DO -[facility] Work Phone: Start: 06-20-2025 End: 06-20-2025 Dr. Christian Shook MD -[facility] Work Phone: Start: 06-20-2025 End: 06-20-[address] Rios Downey DO Work Phone: -[facility] Start: 06-19-2025 End: 06-19-[address] Pepe Au MD -[facility] Work Phone: Start: 06-19-2025 End: 06-19-2025 Dr. Pepe Au MD -[facility] Work Phone: Start: 06-19-2025 End: 06-19-[address] Rios Downey DO Work Phone: -[facility] Start: 06-13-2025 End: 06-13-2025 Patient encounter procedure Gosia Saenz [employer]-[facility] -[facility] Work Phone: Start: 06-13-2025 End: 06-13-2025 Gosia Saenz [employer] -[facility] Work Phone: Start: 06-13-2025 End: 06-13-[address] Rios Downey DO Work Phone: -[facility] Start: 05-31-2025 End: 06-01-2025 [facility] Start: 05-31-2025 End: 06-01-2025 Emergency department patient visit Dr. Rios Downey DO Work Phone: -Emergency Department Work Phone: Start: 05-22-2025 End: 05-22-[address] Pepe Au MD -[facility] Work Phone: Start: 05-22-2025 End: 05-22-2025 Dr. Pepe Au MD -[facility] Work Phone: Start: 05-22-2025 End: 05-22-[address] Rios Downey DO Work Phone: [facility] Work Phone: Start: 04-25-2025 End: 04-25-[address] Pepe Au MD -[facility] Work Phone: Start: 04-25-2025 End: 04-25-2025 Dr. Pepe Au MD -[facility] Work Phone: Start: 04-25-2025 End: 04-25-[address] Rios Downey DO Work Phone: [facility] Work Phone: Start: 04-15-2025 End: 04-15-[address] Pepe Au MD -[facility] Work Phone: Start: 04-15-2025 End: 04-15-2025 Dr. Pepe Au MD -Laboratory [facility] Work Phone: Start: 04-15-2025 End: 04-15-2025 ambulatory [facility] Start: 03-28-2025 End: 03-28-[address] Pepe Au MD -[facility] Work Phone: Start: 03-28-2025 End: 03-28-2025 Dr. Pepe Au MD -[facility] Work Phone: Start: 03-28-2025 End: 03-28-2025 ambulatory [facility] Start: 03-14-2025 End: 03-14-2025 Patient encounter procedure Gosia [facility] -[facility] Work Phone: Start: 03-14-2025 End: 03-14-2025 Gosia [facility] -[facility] Work Phone: Start: 03-14-2025 End: 03-14-2025 ambulatory [facility] Start: 02-26-2025 End: 02-26-[address] Pepe Au MD -[facility] Work Phone: Start: 02-26-2025 End: 02-26-2025 Dr. Pepe Au MD -Medical Out Work Phone: Start: 02-26-2025 End: 02-26-[address] Rios Downey DO Work Phone: [facility] Work Phone: Start: 01-29-2025 End: 01-29-[address] Pepe Au MD -Medical Out Work Phone: Start: 01-29-2025 End: 01-29-2025 ambulatory [facility] Start: 01-01-2025 End: 01-01-[address] Pepe Au MD -Medical Out Work Phone: Start: 01-01-2025 End: 01-01-2025 ambulatory [facility] Start: 12-04-2024 End: 12-04-[address] Pepe Au MD -Medical Out Work Phone: Start: 12-04-2024 End: 12-04-2024 ambulatory [facility] Start: 11-07-2024 Encounter for genera l adult medical [facility] Start: 10-31-2024 End: 10-31-[address] Pepe Au MD -Medical Out Work Phone: Start: 10-31-2024 End: 10-31-2024 ambulatory [facility] Start: 10-22-2024 End: 10-22-2024 ambulatory [facility] Start: 10-15-2024 End: 10-15-2024 ambulatory [facility] Start: 10-10-2024 ambulatory Rios Maloneins Facility: [facility] Start: 10-10-2024 End: 10-10-2024 ambulatory Dang KWAN Facility:[facility] Start: 10-02-2024 End: 10-02-2024 ambulatory Rios Downey Facility:[facility] Start: 09-24-2024 End: 09-24-2024 ambulatory Rios Maloneins Facility:[facility] Start: 08-30-2024 End: 08-30-2024 ambulatory Rios Maloneins Facility:[facility] Start: 08-02-2024 End: 08-02-2024 ambulatory Paulasteve Au Facility:[facility] Start: 03-23-2024 End: 03-23-[address] Rios Downey Work Phone: [facility] Work Phone: Start: 03-22-2024 End: 03-22-[address] Rios Downey Work Phone: [facility] Work Phone: Start: 03-22-2024 End: 03-22-[address] Rios Downey Work Phone: [facility] Work Phone: Start: 03-14-2024 End: 03-14-2024 ambulatory [facility] Work Phone: Start: 03-14-2024 End: 03-14-2024 Patient encounter procedure [facility]-Medical Out Work Phone: Start: 02-19-2024 End: 02-19-2024 Emergency department patient visit [facility]-Emergency Department Work Phone: Start: 02-15-2024 End: 02-16-2024 Emergency department patient visit [facility] Work Phone: Start: 02-15-2024 End: 02-15-2024 ambulatory [facility] Work Phone: Start: 02-15-2024 End: 02-15-2024 [facility] Start: 01-18-2024 End: 01-18-[address] Rios Downey Work Phone: [facility] Work Phone: Start: 01-18-2024 End: 01-18-[address] Rios Downey [facility]: [facility] Work [facility]: Start: 12-21-2023 End: 12-21-[address] Rios Downey Work Phone: [facility] Work [facility]: Start: 12-02-2023 End: 12-02-[address] Rios Downey Work Phone: [facility] Work Phone: Start: 11-23-2023 End: 11-23-[address] Rios Downey Work Phone: [facility] Work Phone: Start: 11-23-2023 End: 11-23-[address] Rios Downey [facility]: [facility] Work [facility]: Start: 11-23-2023 End: 11-23-2023 Dr. Rios Downey Work Phone: [facility] Work [facility]: Start: 10-26-2023 End: 10-26-[address] Rios Downey Work Phone: [facility] Work Phone: Start: 10-26-2023 End: 10-26-[address] Rios Downey Work Phone: [facility] Work [facility]: Start: 10-26-2023 End: 10-26-2023 Dr. Rios Downey Work Phone: [facility] Out Work Phone: Start: 10-05-2023 End: 10-05-[address] Rios Downey Work Phone: [facility] Work Phone: Start: 10-05-2023 End: 10-05-2023 Dr. Rios Downey Work Phone: [facility] [place] Work Phone: Start: 09-28-2023 End: 09-28-[address] Rios Downey Work Phone: [facility] Work Phone: Start: 09-28-2023 End: 09-28-[address] Rios Downey Work Phone: [facility] Out Work Phone: Start: 09-28-2023 End: 09-28-2023 Dr. Rios Downey Work Phone: [facility]-Medical Out Work Phone: Start: 09-22-2023 Non-patient / Non-visit Dr. Carlos Downey Work Phone: [facility] Work Phone: Start: 09-22-2023 Dr. Rios Malone ins Work Phone: [facility] Work Phone: Start: 09-22-2023 Non-patient / Non-visit Dr. Carlos Downey Work Phone: [facility] Start: 09-22-2023 Dr. Rios winters Work Phone: [facility] Start: 09-21-2023 Non-patient / Non-visit Dr. Carlos Downey Work Phone: [facility] Work Phone: Start: 09-21-2023 Dr. Rios Malone ins Work Phone: [facility] Work Phone: Start: 09-21-2023 Non-patient / Non-visit Dr. Carlos Downey Work Phone: [facility] Start: 09-21-2023 Dr. Rios Malone ins Work Phone: [facility] Start: 09-20-2023 Dr. Rios Malone ins Work Phone: [facility] Start: 09-20-2023 Dr. Rios Malone ins Work Phone: [facility] Work Phone: Start: 09-19-2023 Dr. Rios Malone ins Work Phone: [facility] Work Phone: Start: 09-18-2023 Dr. Rios Malone ins Work Phone: [facility] Work Phone: Start: 09-17-2023 Dr. Rios Malone ins Work Phone: [facility] Work Phone: Start: 09-16-2023 End: 09-22-2023 Evaluation and management of inpatient Dr. Rios Downey Work Phone: [facility] Work Phone: Start: 09-16-2023 End: 09-22-2023 Dr. Rios Downey Work Phone: [facility]-Progressive Care Unit Work Phone: Start: 08-31-2023 End: 08-31-2023 Dr. Rios Downey Work Phone: [facility]-Emergency Department Work Phone: Start: 08-22-2023 Dr. Rios winters Work Phone: [facility] Work Phone: Start: 08-21-2023 Dr. Rios winters Work Phone: [facility] Work Phone: Start: 08-20-2023 Dr. Rios Malone ins Work Phone: [facility] Work Phone: Start: 08-19-2023 Dr. Rios Malone ins Work Phone: [facility] Work Phone: Start: 08-18-2023 Evaluation and management of inpatient Dr. Rios Downey Work Phone: [facility]-Progressive Care Unit Work Phone: Start: 08-18-2023 End: 08-22-2023 Evaluation and management of inpatient Dr. Riso Downey Work Phone: [facility] Work Phone: Start: 08-18-2023 End: 08-22-2023 Dr. Rios Downey Work Phone: [facility]-Progressive Care Unit Work Phone: Start: 08-18-2023 Dr. Rios winters Work Phone: [facility]-Emergency Department Work Phone: Start: 08-06-2023 End: 08-06-[address] Rios Downey Work Phone: [facility] Work Phone: Start: 08-06-2023 End: 08-06-[address] Rios Downey Work Phone: [facility] Work Phone: Start: 08-06-2023 End: 08-06-2023 Dr. Rios Downey Work Phone: [facility] Work Phone: Start: 07-23-2023 End: 07-23-[address] Rios Downey Work Phone: [facility] Work Phone: Start: 07-23-2023 End: 07-23-2023 Dr. Rios Downey Work Phone: [facility] Work Phone: Start: 07-22-2023 End: 07-22-[address] Rios Downey Work Phone: [facility] Work Phone: Start: 07-22-2023 End: 07-22-[address] Rios Downey Work Phone: [facility] - [facility] Work Phone: Start: 07-22-2023 End: 07-22-2023 Dr. Rios Downey Work Phone: [facility] - [facility] Work Phone: Start: 07-06-2023 End: 07-06-[address] Rios Downey Work Phone: [facility] Work Phone: Start: 07-06-2023 End: 07-06-[address] Rios Downey Work Phone: [facility] Work Phone: Start: 07-06-2023 End: 07-06-2023 Dr. Rios Downey Work Phone: [facility] Work Phone: Start: 07-03-2023 End: 08-18-2023 Evaluation and management of inpatient Dr. Rios Downey Work Phone: [facility]-Transitional Care Unit Start: 07-03-2023 End: 08-18-2023 Dr. Rios Downey Work Phone: [facility] Start: 07-03-2023 Non-patient / Non-visit Dr. Carlos Downey Work Phone: [facility] Work Phone: Start: 07-03-2023 Dr. Rios Malone ins Work Phone: [facility] Work Phone: Start: 07-02-2023 Non-patient / Non-visit Dr. Carlos Downey Work Phone: [facility] Work Phone: Start: 07-02-2023 Dr. Rios winters Work Phone: [facility] Work Phone: Start: 07-01-2023 Non-patient / Non-visit Dr. Carlos Downey Work Phone: [facility] Work Phone: Start: 07-01-2023 Dr. Rios winters Work Phone: [facility] Work Phone: Start: 06-30-2023 Non-patient / Non-visit Dr. Carlos Downey Work Phone: [facility] Work Phone: Start: 06-30-2023 Dr. Rios winters Work Phone: [facility] Work Phone: Start: 06-30-2023 End: 07-03-2023 Evaluation and management of inpatient Dr. Rios Downey Work Phone: [facility] Work Phone: Start: 06-30-2023 End: 07-03-2023 Dr. Riso Downey Work Phone: [facility]-Progressive Care Unit Work Phone: Start: 06-30-2023 Non-patient / Non-visit Dr. Carlos Downey Work Phone: [facility] Start: 06-30-2023 Dr. Rios winters Work Phone: [facility] Start: 06-29-2023 Non-patient / Non-visit Dr. Carlos Downey Work Phone: [facility] Start: 06-29-2023 Dr. Rios winters Work Phone: [facility] Start: 06-29-2023 Non-patient / Non-visit Dr. Carlos Downey Work Phone: [facility] Work Phone: Start: 06-29-2023 Dr. Rios winters Work Phone: [facility] Work Phone: Start: 06-29-2023 Evaluation and management of inpatient [facility]-Progressive Care Unit Work Phone: Start: 06-29-2023 observation encounter [facility] Work Phone: Start: 06-13-2023 End: 06-13-2023 ambulatory [facility] Work Phone: Start: 06-13-2023 End: 06-13-2023 Patient encounter procedure [facility] Out Work Phone: Start: 06-13-2023 End: 06-13-2023 Dr. Rios Downey Work Phone: [facility] Out Work Phone: Start: 05-26-2023 End: 05-26-2023 ambulatory [facility] Work Phone: Start: 05-26-2023 End: 05-26-2023 Patient encounter procedure [facility] Work Phone: Start: 05-26-2023 End: 05-26-2023 Dr. Rios Downey Work Phone: [facility] Work Phone: Start: 05-16-2023 End: 05-16-[address] Rios Downey Work Phone: [facility] Work Phone: Start: 05-16-2023 End: 05-16-[address] Rios Downey Work Phone: [facility]-Medical Out Start: 05-16-2023 End: 05-16-2023 Dr. Rios Downey Work Phone: [facility] Work [facility]: Start: 05-12-2023 End: 05-17-2023 ambulatory RIOS DOWNEY DO Facility:[facility] Start: 05-12-2023 End: 05-16-2023 Outreach Lab JENNIFER LU MD [facility] Start: 04-18-2023 End: 04-18-[address] Rios Downey Work Phone: [facility]-Medical Out Start: 04-18-2023 End: 04-18-2023 Dr. Rios Downey Work Phone: [facility] Work Phone: Start: 03-21-2023 End: 03-21-[address] Rios Downey Work Phone: [facility] Work Phone: Start: 03-21-2023 End: 03-21-[address] Rios Downey [facility]: [facility] Start: 03-21-2023 End: 03-21-2023 Dr. Rios Downey Work Phone: [facility] Out Work Phone: Start: 02-21-2023 End: 02-21-[address] Rios Downey Work Phone: [facility] Work Phone: Start: 02-21-2023 End: 02-21-[address] Rios Downey Work Phone: [facility]-Medical Out Start: 01-31-2023 End: 01-31-[address] Jennifer Lu Work Phone: [facility] Work Phone: Start: 01-31-2023 End: 01-31-[address] Jennifer Lu Work Phone: [facility] Start: 01-31-2023 End: 01-31-[address] Jennifer Lu Work Phone: [facility] Start: 01-24-2023 End: 01-24-[address] Jennifer Lu Work Phone: [facility] Work Phone: Start: 01-24-2023 End: 01-24-[address] Jennifer Lu Work Phone: [facility] Out Start: 12-28-2022 End: 12-28-[address] Jennifer Lu Work Phone: [facility] Work Phone: Start: 12-28-2022 End: 12-28-[address] Jennifer Lu Work Phone: [facility] Out Start: 12-02-2022 End: 12-02-[address] Jennifer Lu Work Phone: [facility] Work Phone: Start: 12-02-2022 End: 12-02-[address] Jennifer Lu [facility] Start: 11-24-2022 End: 11-24-[address] Jennifer Lu Work Phone: [facility] Start: 11-01-2022 End: 11-01-[address] Jennifer Lu Work Phone: [facility] Work Phone: Start: 11-01-2022 End: 11-01-[address] Jennifer Lu [facility] Start: 10-07-2022 End: 10-07-[address] Jennifer Lu Work Phone: [facility] Start: 10-04-2022 End: 10-04-[address] Jennifer Lu [facility] Phone[facility] Start: 09-29-2022 End: 09-29-[address] Jennifer Lu Work Phone: [facility] Work Phone: Start: 09-29-2022 End: 09-29-[address] Jennifer Lu Work Phone: [facility] Start: 09-06-2022 End: 09-06-[address] Jennifer Lu Work Phone: [facility] Work Phone: Start: 09-06-2022 End: 09-06-[address] Jennifer Lu Work Phone: [facility] Start: 08-27-2022 End: 08-27-[address] Jennifer Lu Work Phone: [facility] Work Phone: Start: 08-27-2022 End: 08-27-[address] Jennifer Lu Work Phone: [facility] Start: 08-09-2022 End: 08-09-[address] Jennifer Lu Work Phone: [facility] Work Phone: Start: 08-09-2022 End: 08-09-[address] Jennifer Lu [facility]: [facility] Start: 07-16-2022 End: 07-16-[address] Jennifer Lu Work Phone: [facility] Work Phone: Start: 07-16-2022 End: 07-16-[address] Jennifer Lu Work Phone: [facility] Start: 07-12-2022 End: 07-12-[address] Jennifer Lu Work Phone: [facility] Start: 07-09-2022 End: 07-09-[address] Jennifer Lu Work Phone: [facility] Start: 06-18-2022 End: 06-18-[address] Jennifer Lu Work Phone: [facility] Start: 06-16-2022 End: 06-16-[address] Jennifer Lu Work Phone: [facility] Start: 06-14-2022 End: 06-14-[address] Jennifer Lu [facility] Phone: [facility] Start: 05-18-2022 End: 05-18-[address] Jennifer Lu Work Phone: [facility] Start: 05-17-2022 End: 05-17-[address] Jennifer Lu [facility] Start: 04-16-2022 End: 04-16-[address] Jennifer Lu Work Phone: [facility] Start: 04-12-2022 End: 04-12-2022 [facility] Start: 03-29-2022 End: 03-29-[address] Jennifer Lu Work Phone: [facility] Start: 03-15-2022 End: 03-15-[address] Jennifer Lu [facility] Start: 02-15-2022 End: 02-15-[address] Jennifer Lu Work Phone: [facility] Start: 01-25-2022 End: 01-25-[address] Jennifer Lu Work Phone: [facility] Start: 01-18-2022 End: 01-18-[address] Jennifer Lu [facility] Phone: [facility] Start: 12-21-2021 End: 12-21-[address] Jennifer Lu [facility] Phone: [facility] Start: 12-07-2021 End: 12-07-[address] Jennifer Lu Work Phone: [facility] Procedures Date Procedure Procedure Detail Performing Clinician Start: 07-10-2025 Blood count smear mc rscp w/mnl difrntl wbc count Dr. Rios Downey DO Work Phone: Start: 07-10-[address] Rios Downey DO Work Phone: Start: 07-10-2025 Mean corpuscular hemoglobin concentration determination Dr. Rios Downey DO Work Phone: Start: 07-10-2025 Nucleated red blood cell count procedure Dr. Rios Downey DO Work Phone: Start: 07-10-2025 Platelet mean volume determination Dr. Rios Downey DO Work Phone: Start: 07-06-2025 X-ray of chest, PA a nd lateral views Dr. Rios Downey DO Work Phone: Start: 07-06-2025 Blood count smear mc rscp w/mnl difrntl wbc count Dr. Rios Downey DO Work Phone: Start: 07-06-[address] Rios Downey DO Work Phone: Start: 07-06-2025 Mean corpuscular hemoglobin concentration determination Dr. Rios Downey DO Work Phone: Start: 07-06-2025 Nucleated red blood cell count procedure Dr. Rios Downey DO Work Phone: Start: 07-06-2025 Platelet mean volume determination Dr. Rios Downey DO Work Phone: Start: 07-06-2025 Dr. Rios Downey DO Work Phone: Start: 06-19-2025 Blood count smear mc rscp [...] Treatment Date Care Activity Detail Author Start: 07-10-2025 Patient discharge [facility] Start: 07-09-2025 Consultation [facility] Start: 07-08-2025 Oxygen therapy [facility] Start: 07-07-2025 [facility] Start: 07-07-2025 Consultation for treatment [facility] Start: 07-06-2025 Speech therapy assessment [facility] Start: 07-06-2025 Application of device [facility] Start: 07-06-2025 Following clinical p athway protocol [facility] Start: 07-06-2025 Assessment of risk o f venous thromboembolism [facility] Start: 07-06-2025 Care regimes management [facility] Start: 07-06-2025 Elevation of affected extremity [facility] Start: 07-06-2025 Insertion of cathete r into peripheral vein [facility] Start: 07-06-2025 Measuring intake and output [facility] Start: 07-06-2025 Notification of physician [facility] Start: 07-06-2025 Patient education [facility] Start: 07-06-2025 Patient referral to dietitian [facility] Start: 07-06-2025 Providing care accor ding to standard [facility] Start: 07-06-2025 Provision of activity privileges [facility] Start: 07-06-2025 Referral to occupati onal therapist [facility] Start: 07-06-2025 Referral to service [facility] Start: 07-06-2025 End: 07-06-2025 [facility] Start: 07-06-2025 Hospital admission, emergency, from emergency room, medical nature [facility] Start: 07-06-[address] [facility] Start: 07-06-2025 Admission procedure [facility] Start: 07-06-2025 [facility] Start: 07-06-2025 Patient referral to dietitian [facility] Start: 06-01-2025 [facility] Start: 05-31-2025 End: 05-31-2025 [facility] Start: 02-19-2024 [facility] Start: 02-16-2024 [facility] Start: 09-28-2023 [facility] Start: 09-28-2023 Ther proph/dx njx iv push single/1st sbst/drug [facility] Start: 09-22-2023 Patient discharge [facility] Start: 09-20-2023 Dual pressure sponta neous ventilation support [facility] Start: 09-20-2023 Consultation [facility] Start: 09-20-2023 Referral to service [facility] Start: 09-18-2023 End: 09-19-2023 [facility] Start: 09-18-2023 [facility] Start: 09-16-2023 Dual pressure sponta neous ventilation support [facility] Start: 09-16-2023 Following clinical p athway protocol [facility] Start: 09-16-2023 Application of elastic bandage [facility] [facility] Start: 09-16-2023 Assessment of risk o f venous thromboembolism [facility] Start: 09-16-2023 Care regimes management [facility] Start: 09-16-2023 Continuous pulse oximetry [facility] Start: 09-16-2023 Elevation of affected extremity [facility] Start: 09-16-2023 Fall prevention [facility] Start: 09-16-2023 Inhalation therapy procedure [facility] Start: 09-16-2023 Insertion of cathete r into peripheral vein [facility] Start: 09-16-2023 Introduction of urinary catheter [facility] Start: 09-16-2023 Measuring intake and output [facility] Start: 09-16-2023 Notification of physician [facility] Start: 09-16-2023 Oxygen therapy [facility] Start: 09-16-2023 Patient education [facility] Start: 09-16-2023 Providing care accor ding to standard [facility] Start: 09-16-2023 Provision of activity privileges [facility] Start: 09-16-2023 Referral to occupati onal therapist [facility] Start: 09-16-2023 Referral to service [facility] Start: 09-16-2023 SARS-CoV-2 [facility] Start: 09-16-2023 End: 09-16-2023 [facility] Start: 09-16-[address] [facility] Start: 09-16-2023 Admission procedure [facility] Start: 09-16-2023 Hospital admission, emergency, from emergency room, medical nature [facility] Start: 08-22-2023 Patient discharge [facility] Start: 08-21-2023 [facility] Start: 08-19-2023 Development of care plan [facility] Start: 08-19-2023 [facility] Start: 08-18-2023 Aspiration precautions [facility] Start: 08-18-2023 Assessment of risk o f venous thromboembolism [facility] Start: 08-18-2023 Cardiac monitoring [facility] Start: 08-18-2023 Care regimes management [facility] Start: 08-18-2023 Catheterization of vein [facility] Start: 08-18-2023 Continuous pulse oximetry [facility] Start: 08-18-2023 Elevation of head of bed [facility] Start: 08-18-2023 Exercises [facility] Start: 08-18-2023 Fall prevention [facility] Start: 08-18-[address] anned interventions [facility] Start: 08-18-2023 Inhalation therapy procedure [facility] Start: 08-18-2023 Insertion of cathete r into peripheral vein [facility] Start: 08-18-2023 Introduction of urinary catheter [facility] Start: 08-18-2023 Measuring intake and output [facility] Start: 08-18-2023 Notification of physician [facility] Start: 08-18-2023 Oxygen therapy [facility] Start: 08-18-2023 Patient referral to dietitian [facility] Start: 08-18-2023 Providing care accor ding to standard [facility] Start: 08-18-2023 Provision of activity privileges [facility] Start: 08-18-2023 Referral to occupati onal therapist [facility] Start: 08-18-2023 Referral to service [facility] Start: 08-18-2023 Speech therapy assessment [facility] Start: 08-18-2023 Tobacco use cessation education [facility] Start: 08-18-2023 [facility] Start: 08-18-2023 Vital signs measurements [facility] Start: 08-18-2023 Dual pressure sponta neous ventilation support [facility] Start: 08-18-[address] [facility] Start: 08-18-2023 Gas panel - Arterial blood [facility] Start: 08-18-2023 Admission procedure [facility] Start: 08-18-2023 Oxygen therapy [facility] Start: 08-18-2023 [facility] Start: 08-18-2023 Wound care [facility] Start: 08-18-2023 Patient discharge [facility] Start: 08-18-2023 [facility] Start: 08-14-2023 SARS-CoV-2 (COVID-19 ) Ag [Presence] in Respiratory specimen by Rapid immunoassay [facility] Start: 08-13-2023 [facility] Start: 08-12-2023 SARS-CoV-2 (COVID-19 ) Ag [Presence] in Respiratory specimen by Rapid immunoassay [facility] Start: 08-02-2023 Speech therapy management [facility] Start: 08-01-2023 Wound care [facility] Start: 08-01-2023 Blood chemistry [facility] Start: 08-01-2023 Continuous positive airway pressure ventilation treatment [facility] Start: 07-31-2023 [facility] Start: 07-29-2023 Developing a treatment plan [facility] Start: 07-29-2023 Development of care plan [facility] Start: 07-27-2023 [facility] Start: 07-25-2023 Blood chemistry [facility] Start: 07-18-2023 Blood chemistry [facility] Start: 07-12-[address] [facility] Start: 07-08-2023 Referral to catechist [facility] Start: 07-07-2023 Wound care [facility] Start: 07-06-2023 Wound care [facility] Start: 07-04-2023 Development of care plan [facility] Start: 07-04-2023 Speech therapy management [facility] Start: 07-04-[address] [facility] Start: 07-04-2023 Developing a treatment plan [facility] Start: 07-03-2023 End: 07-04-2023 [facility] Start: 07-03-2023 Consultation for treatment [facility] Start: 07-03-2023 Speech therapy assessment [facility] Start: 07-03-2023 Wound care [facility] Start: 07-03-2023 Seizure precautions [facility] Start: 07-03-2023 Following clinical p athway protocol [facility] Start: 07-03-2023 Oxygen therapy [facility] Start: 07-03-2023 Admission procedure [facility] Start: 07-03-2023 Measuring intake and output [facility] Start: 07-03-2023 Patient referral to dietitian [facility] Start: 07-03-2023 Referral to occupati onal therapist [facility] Start: 07-03-2023 Referral to service [facility] Start: 07-03-2023 Vital signs measurements [facility] Start: 07-03-2023 Patient discharge [facility] Start: 07-03-2023 Patient referral to dietitian [facility] Start: 07-03-2023 Speech therapy assessment [facility] Start: 07-03-2023 [facility] Start: 07-01-2023 [facility] Start: 06-30-2023 Admission procedure [facility] Start: 06-30-2023 Thyroid stimulating hormone measurement [facility] Start: 06-29-2023 Ambulation without limitation [facility] Start: 06-29-2023 Assessment of risk o f venous thromboembolism [facility] Start: 06-29-2023 Cardiac monitoring [facility] Start: 06-29-2023 Catheterization of vein [facility] Start: 06-29-2023 Continuous pulse oximetry [facility] Start: 06-29-2023 Elevation of head of bed [facility] Start: 06-29-2023 Exercises [facility] Start: 06-29-[address] anned interventions [facility] Start: 06-29-2023 Insertion of cathete r into peripheral vein [facility] Start: 06-29-2023 Measuring intake and output [facility] Start: 06-29-2023 Notification of physician [facility] Start: 06-29-2023 Oxygen therapy [facility] Start: 06-29-2023 Providing care accor ding to standard [facility] Start: 06-29-2023 Referral to occupati onal therapist [facility] Start: 06-29-2023 Referral to service [facility] Start: 06-29-2023 Speech therapy assessment [facility] Start: 06-29-2023 Tobacco use cessation education [facility] Start: 06-29-2023 Following clinical p athway protocol [facility] Start: 06-29-2023 End: 06-29-2023 [facility] Start: 06-29-[address] [facility] Start: 06-29-2023 Admission procedure [facility] Start: 06-29-2023 Gas panel - Venous blood [facility] Start: 06-29-2023 Oxygen therapy [facility] Start: 06-29-2023 [facility] Start: 01-31-2023 [facility] Anion gap measurement [facility] Anion gap measurement [facility] Anion gap measurement [facility] Bilirubin measurement, urine [facility] BUN/Creatinine ratio [facility] BUN/Creatinine ratio [facility] BUN/Creatinine ratio [facility] Calcium [Mass/volume ] in Serum or Plasma [facility] Calcium [Mass/volume ] in Serum or Plasma [facility] Calcium [Mass/volume ] in Serum or Plasma [facility] Carbon dioxide, tota l [Moles/volume] in Serum or Plasma [facility] Carbon dioxide, tota l [Moles/volume] in Serum or Plasma [facility] Carbon dioxide, tota l [Moles/volume] in Serum or Plasma [facility] Chloride [Moles/volu me] in Serum or Plasma [facility] Chloride [Moles/volu me] in Serum or Plasma [facility] Chloride [Moles/volu me] in Serum or Plasma [facility] Creatinine [Moles/vo lume] in Serum or Plasma [facility] Creatinine [Moles/vo lume] in Serum or Plasma [facility] Creatinine [Moles/vo lume] in Serum or Plasma [facility] Glucose [Mass/volume ] in Serum or Plasma [facility] Glucose [Mass/volume ] in Serum or Plasma [facility] Glucose [Mass/volume ] in Serum or Plasma [facility] Hematocrit [Volume F raction] of Blood [facility] Hematocrit [Volume F raction] of Blood [facility] Hematocrit [Volume F raction] of Blood [facility] Hemoglobin [Mass/volume] in Blood [facility] Hemoglobin [Mass/volume] in Blood [facility] Hemoglobin [Mass/volume] in Blood [facility] Hemoglobin [Presence] in Urine [facility] Leukocytes [#/volume] in Blood [facility] Leukocytes [#/volume] in Blood [facility] Leukocytes [#/volume] in Blood [facility] Magnesium [Mass/volu me] in Serum or Plasma [facility] Mean corpuscular hem oglobin concentration determination [facility] Mean corpuscular hem oglobin concentration determination [facility] Mean corpuscular hem oglobin concentration determination [facility] Mean corpuscular hem oglobin determination [facility] Mean corpuscular hem oglobin determination [facility] Mean corpuscular hem oglobin determination [facility] Measurement of keton es in urine using dipstick [facility] Measurement of renal function [facility] Measurement of renal function [facility] Measurement of renal function [facility] Microscopic urinalysis [facility] Neutrophil count [facility] Neutrophil count [facility] Neutrophil count [facility] Neutrophil percent d ifferential count [facility] Neutrophil percent d ifferential count [facility] Neutrophil percent d ifferential count [facility] Patient Education [facility] Work Phone: Patient referral [facility] Work Phone: pH of Urine [facility] Platelets [#/volume] in Blood [facility] Platelets [#/volume] in Blood [facility] Platelets [#/volume] in Blood [facility] Potassium [Moles/vol ume] in Serum or Plasma [facility] Potassium [Moles/vol ume] in Serum or Plasma [facility] Potassium [Moles/vol ume] in Serum or Plasma [facility] Red blood cell count [facility] Red blood cell count [facility] Red blood cell count [facility] Red cell distributio n width determination [facility] Red cell distributio n width determination [facility] Red cell distributio n width determination [facility] Respiratory pathogen s DNA and RNA panel - Respiratory specimen by ELIANE with probe detection [facility] Sodium [Moles/volume ] in Serum or Plasma [facility] Sodium [Moles/volume ] in Serum or Plasma [facility] Sodium [Moles/volume ] in Serum or Plasma [facility] Specific gravity of Urine [facility] Troponin T.cardiac [ Mass/volume] in Serum or Plasma by High sensitivity method [facility] Urea nitrogen [Mass/ volume] in Serum or Plasma [facility] Urea nitrogen [Mass/ volume] in Serum or Plasma [facility] Urea nitrogen [Mass/ volume] in Serum or Plasma [facility] Urinalysis, blood, qualitative [facility] Urine dipstick for glucose [facility] Urine dipstick for l eukocyte esterase [facility] Urine dipstick for nitrite [facility] Urine dipstick for protein [facility] Urine examination [facility] Urine microscopy: ep ithelial cells [facility] Urine Microscopy: white cells [facility] Urobilinogen [Presence] in Urine [facility] Immunizations Immunization Date Immunization Notes Care Provider Fa cility 08-31-2023 tetanus toxoid, redu steph diphtheria toxoid, and acellular pertussis vaccine, adsorbed Dr. Rios Downey Work Phone: [facility] 07-12-2023 Covid Moderna Bivale nt Booster Dr. Rios Downey Work Phone: [facility] 10-06-2022 influenza, high dose seasonal, preservative-free JENNIFER LU MD [facility] 10-06-2022 Influenza, high dose seasonal Dr. Rios Downey DO Work Phone: [facility] 03-16-2022 COVID-19, mRNA, LNP- S, PF, 100 mcg or 50 mcg dose; Translations: [Moderna COVID-19 Vaccine] JENNIFER LU MD [facility] 12-03-2021 COVID-19, mRNA, LNP- S, PF, 100 mcg or 50 mcg dose; Translations: [Moderna COVID-19 Vaccine] JENNIFER LU MD [facility] 09-17-2021 influenza, high dose seasonal, preservative-free; Translations: [Fluad Quadrivalent PF ] JENNIFER LU MD [facility] 09-17-2021 Influenza, high dose seasonal Dr. Rios Downey DO Work Phone: [facility] 01-20-2021 COVID-19, mRNA, LNP- S, PF, 100 mcg or 50 mcg dose; Translations: [Moderna COVID-19 Vaccine] JENNIFER LU MD [facility] 12-25-2020 SARS-CoV-2 (COVID-19 ) [id number] vaccine JENNIFER LU MD [facility] 08-15-2020 influenza, injectabl e, quadrivalent, preservative free; Translations: [Fluarix PF Quadrivalent ] JENNIFER LU MD [facility] 08-15-2020 influenza, seasonal, injectable Dr. Rios Downey Work Phone: [facility] 09-13-2019 influenza, injectabl e, quadrivalent, preservative free; Translations: [Fluarix PF Quadrivalent ] JENNIFER LU MD [facility] 09-13-2019 influenza, seasonal, injectable Dr. Riso Downey Work Phone: [facility] 08-28-[address] Jennifer Lu Work Phone: [facility] 09-04-2018 influenza virus vacc ine, unspecified formulation JENNIFER LU MD [facility] 09-04-2018 influenza, injectabl e, quadrivalent, preservative free Dr. Rios Downey Work Phone: [facility] 09-04-2018 influenza, seasonal, injectable Dr. Rios Downey Work Phone: [facility] 09-21-2017 influenza virus vacc ine, unspecified formulation JENNIFER LU MD [facility] 09-21-2017 influenza, injectabl e, quadrivalent, preservative free Dr. Rios Downey Work Phone: [facility] 09-21-2017 influenza, seasonal, injectable Dr. Rios Downey Work Phone: [facility] 08-22-2017 influenza, injectabl e, quadrivalent, preservative free Dr. Rios Downey Work Phone: [facility] 08-22-2017 influenza, seasonal, injectable Dr. Jennifer Lu Work Phone: [facility] 08-24-[address] Jennifer Lu Work Phone: [facility] 08-24-2016 influenza virus vacc ine, unspecified formulation JENNIFER LU MD [facility] 08-24-2016 influenza, injectabl e, quadrivalent, preservative free Dr. Rios Downey Work Phone: [facility] 08-24-2016 influenza, seasonal, injectable Dr. Rios Downey Work Phone: [facility] 07-29-2016 influenza virus vacc ine, unspecified formulation JENNIFER LU MD [facility] 07-29-2016 influenza, injectabl e, quadrivalent, preservative free Dr. Rios Downey Work Phone: [facility] 07-29-2016 influenza, seasonal, injectable Dr. Rios Downey Work Phone: [facility] 10-03-2015 influenza virus vacc ine, unspecified formulation JENNIFER LU MD [facility] 10-03-2015 influenza, injectabl e, quadrivalent, preservative free Dr. Rios Downey Work Phone: [facility] 10-03-2015 influenza, seasonal, injectable Dr. Rios Downey Work Phone: [facility] 09-11-2015 influenza, injectabl e, quadrivalent, preservative free Dr. Rios Downey Work Phone: [facility] 09-11-2015 influenza, seasonal, injectable Dr. Jennifer Lu Work Phone: [facility] 03-03-2015 pneumococcal conjuga te vaccine, 13 vallucy LU MD [facility] 10-09-2014 influenza virus vacc ine, unspecified formulation JENNIFER LU MD [facility] 10-09-2014 influenza, injectabl e, quadrivalent, preservative free Dr. Rios Dwoney Work Phone: [facility] 10-09-2014 influenza, seasonal, injectable Dr. Rios Downey Work Phone: [facility] 09-17-2013 influenza virus vacc ine, unspecified formulation JENNIFER LU MD [facility] 09-17-2013 influenza, injectabl e, quadrivalent, preservative free Dr. Rios Downey Work Phone: [facility] 09-17-2013 influenza, seasonal, injectable Dr. Rios Downey Work Phone: [facility] 10-02-2012 pneumococcal polysaccharide vaccine, 23 vallucy LU MD [facility] 08-04-2011 tetanus toxoid, redu steph diphtheria toxoid, and acellular pertussis vaccine, adsorbed JENNIFER LU MD [facility] 08-28-2006 pneumococcal polysaccharide vaccine, 23 vallucy LU MD [facility] Payers Date Payer Category Payer Self-pay [id number] 2006 Medicare [id number] [facility] [id number] 2006 Unknown [id number] 1940 Unknown [id number] 2.16.8 [id number] Unknown [id number] Unknown [id number] 2.16.8 40.1.699969.3.579.2.462 Unknown [id number] 2.16.8 40.1.221581.3.579.2.462 Unknown [id number] 2.16.8 40.1.715943.3.579.2.462 Unknown [id number] 2.16.8 40.1.151015.3.579.2.462 Unknown [id number] 2.16.8 40.1.114229.3.579.2.462 Unknown [id number] 2.16.8 40.1.241519.3.579.2.462 Unknown [id number] 2.16.8 40.1.383715.3.579.2.462 Unknown [id number] 2.16.8 40.1.808492.3.579.2.462 Unknown [id number] 2.16.8 40.1.078391.3.579.2.462 Unknown [id number] 2.16.8 40.1.677304.3.579.2.462 Unknown [id number] 2.16.8 40.1.726023.3.579.2.462 Unknown [id number] 2.16.8 40.1.110443.3.579.2.462 Unknown [id number] 2.16.8 40.1.213057.3.579.2.462 Unknown [id number] 2.16.8 40.1.372526.3.579.2.462 Unknown [id number] 2.16.8 40.1.326056.3.579.2.462 Unknown [id number] 2.16.8 40.1.638712.3.579.2.462 Unknown [id number] 2.16.8 40.1.962317.3.579.2.462 Unknown [id number] 2.16.8 40.1.139393.3.579.2.462 Unknown [id number] 2.16.8 40.1.288856.3.579.2.462 Unknown [id number] 2.16.8 40.1.879630.3.579.2.462 Unknown [id number] 2.16.8 40.1.144122.3.579.2.462 Unknown [id number] 2.16.8 40.1.842583.3.579.2.462 Unknown [id number] 2.16.8 40.1.285923.3.579.2.462 Unknown [id number] 2.16.8 40.1.151631.3.579.2.462 Unknown [id number] 2.16.8 40.1.140001.3.579.2.462 Unknown [id number] 2.16.8 40.1.023437.3.579.2.462 Unknown [id number] 2.16.8 40.1.024813.3.579.2.462 Unknown [id number] 2.16.8 40.1.646192.3.579.2.462 Unknown [id number] 2.16.8 40.1.483623.3.579.2.462 Unknown [id number] 2.16.8 40.1.187236.3.579.2.462 Unknown [id number] 2.16.8 40.1.052175.3.579.2.462 Social History Date Type Detail Facility Start: 12-07-2021 End: 02-19-2024 Tobacco smoking status NHIS Unknown if ever smoked [facility] Start: 01-31-2021 None [facility] Start: 01-31-2021 Spouse/ Signif icant Other [facility] Start: 02-19-2020 Non-smoker [facility] Start: 1940 Sex Assigned At Male [facility] Start: 06-15-2019 End: 07-06-2025 Tobacco smoking status Ex-smoker (finding) Comment on above: no smoke exposure Start: 06-29-2023 Cigarettes [facility] Start: 02-27-2025 Sex Male (finding) [facility] Goals Date Patient Goal Desired Activity /State Functional Status Date Assessment Result Facility 07-10-2025 Functional status Ambulates [facility] Work Phone: 09-22-2023 Functional status Ambulates;Chair [facility] Work Phone: 08-22-2023 Functional status With Assist of 1 [facility] Work Phone: 08-21-2023 Functional status Dangle Feet;Chair [facility] Work Phone: 08-20-2023 Functional status Standard [facility] Work Phone: 08-18-2023 Functional status Ambulates [facility] Work Phone: 08-11-2023 Functional status Bedrest [facility] Work Phone: 08-10-2023 Functional status Tolerates Activity Fair [facility] Work Phone: 07-27-2023 Functional status Bedrest [facility] Work Phone: 07-26-2023 Functional status Assistive Radha pablito Rolling [facility] Work Phone: 07-11-2023 Functional status Chair [facility] Work Phone: 07-03-2023 Functional status Bedrest [facility] Work Phone: 07-03-2023 Functional status Standard [facility] Work Phone: Mental Status Date Assessment Result Facility 07-10-2025 Cognitive function Voice/Name [facility] Work Phone: 05-31-2025 Cognitive function Awake;Alert;A ppropriate;Follow s Commands [facility] Work Phone: 02-19-2024 Cognitive function Level Of Cons ciousness Awake;Alert;Appropriate;Follow s Commands [facility] Work Phone: 11-23-2023 Cognitive function Voice/Name [facility] Work Phone: 09-28-2023 Cognitive function Voice/Name [facility] Work Phone: 09-22-2023 Cognitive function Voice/Name [facility] Work Phone: 08-22-2023 Cognitive function Voice/Name [facility] Work Phone: 08-18-2023 Cognitive function Touch/Shaking [facility] Work Phone: 08-17-2023 Cognitive function Touch/Shaking [facility] Work Phone: 08-10-2023 Cognitive function Voice/Name [facility] Work Phone: 08-09-2023 Cognitive function Cooperative [facility] Work Phone: 07-27-2023 Cognitive function Voice/Name;Touch/Shaki ng [facility] Work Phone: 07-27-2023 Cognitive function Anxious;Restless;Fatig ued [facility] Work Phone: 07-10-2023 Cognitive function Voice/Name [facility] Work Phone: 07-03-2023 Cognitive function Voice/Name [facility] Work Phone: 06-29-2023 Cognitive function Voice/Name [facility] Work Phone: 07-12-2022 Cognitive function Awake;Alert;A ppropriate;Follow s [facility] Work Phone: 03-15-2022 Cognitive function Awake;Alert;A ppropriate;Follow s [facility] Work Phone: Clinical Notes 02-24-2016 to 07-10-2025 Note Date & Type Note Facility 07-10-2025 Consult note Note Date/Time July 10, 2025 3:43pm [facility] Medical Records Department [address] [place] [address] Counseling Note - Pharmacy 07/10/25 1108 MR#: [id number] Acct: [id number] Name: JODIE CARDENAS Rep #:[id number] : 1940 85 From: Ingrid Rizvi PCP: Dr. Rios Downey, DO Status:ADM IN Y Location: [place] [address] [place] Med Reconciliation Pharmacy Service has performed discharge medication reconciliation for this patient. The patient's discharge medication list was reviewed for discrepancies and discrepancies were resolved. Medications at Discharge Home Medications aspirin 81 mg tablet,delayed release 81 mg PO DAILY HEART HEALTH 07/11/16 multivitamin 1 ea PO DAILY HEALTH MAINTENANCE 07/11/16 insulin regular human 100 unit/mL injection solution 10 unit subcut BID [id number]/27/16 cholecalciferol (vitamin D3) 25 mcg (1,000 unit) [...] 2.5 mg PO BID BLOOD THINNER 10/07/22 menthol 0.44 %-zinc oxide 20.6 % topical ointment (Calmoseptine) 1 applic topical BID 08/18/23 nystatin 100,000 unit/gram topical powder (Nystop) 1 applic topical BID 08/18/23 nitroglycerin 0.4 mg sublingual tablet (Nitrostat) 0.4 mg sublingual Q5-15M PRN chest pain #25 tabs 03/23/24 amlodipine 2.5 mg tablet 2.5 mg PO DAILY #90 tabs 01/25/25 furosemide 40 mg tablet 40 mg PO QDAY #90 tabs 01/25/25 Held on 07/10/25. Instructions: Resume on 07/12/25. insulin NPH isoph U-100 human 100 unit/mL subcutaneous suspension 10 unit subcutBID DIABETES 05/31/25 levetiracetam 500 mg tablet 500 mg PO BID 05/31/25 calcitriol 0.5 mcg capsule 0.5 mcg PO MOWEFR 07/06/25 isosorbide mononitrate 60 mg tablet,extended release 24 hr 60 mg PO DAILY 07/06/25 metoprolol tartrate 25 mg tablet 12.5 mg (1/2 x 25 mg) PO BID #0 tabs 07/10/25 07/10/25 1108 <Electronically signed by Ingrid Rizvi> Date _ Ingrid Rizvi Cosigner Signature (if applicable): Date CC: ~ Signed [facility] Work Phone: 1(522) 679-322608-13-2025 Discharge summary Author Eladio Lucas [facility] Note Date/Time July 10, 2025 10 :47am [facility] Medical Records Department [address] [place] [address] Transfer to [facility] MR#: [id number] Acct: [id number] Name: JODIE CARDENAS Rep #:[id number] : 1940 85 From: Eladio ramirez MD PCP: Dr. Rios Downey, DO Status:ADM IN Certification of patient admission REQUIRED AT TIME OF ADMISSION. I CERTIFY THAT POST-HOSPITAL ECF SERVICES ARE REQUIRED TO BE GIVEN ON AN IN-PATIENT BASIS BECAUSE OF THE ABOVE NAMED PATIENT'S NEED FOR INTERMEDIATE CARE ON A CONTINUING BASIS FOR THE CONDITION(S) FOR WHICH HE/SHE WAS RECEIVING IN-PATIENT HOSPITAL SERVICES PRIOR TO HIS/HER [facility]. 07/10/25 1047<Electronically signed by Eladio Lucas MD> Diet Diet Order/Speech Therapy: INPATIENT Hospital Diet / Speech Therapy Order(s) 07/06/25 20:23 Diet: Cardiac: Calorie-Controlled Food consistency:: Easy to Chew Liquid Consistency:: Regular/Thin Fluid restriction:: 1500 mL How many daily calories?: 2000 calorie Routine Orders/Code Status Routine Lab Work: CBC and BMP Code Status: DNRCC-A DC O2, CPAP, BIPAP needs Home O2 Discharge instructions: No Wound(s) intergluteal cleft: Wound Type: fissure right cifuentes: Wound Type: blister left lower leg: Wound Type: blisters left groin: Wound Type: excoriation right heel: Wound Type: blister Therapies Physical Therapy: Eval and Treat Occupational Therapy: Eval and Treat Problem/Diagnosis (1) Acute exacerbation of CHF (congestive heart failure): Status: Chronic Code(s): I50.9 - Heart failure, unspecified Plan 1. Acute on chronic systolic CHF exacerbation in the setting of chronic hypoxicrespiratory failure/essential HTN/HLD/paroxysmal A-fib ? He is on his baseline oxygen of 2-1/2 L at rest ? Continue with Lasix 40 mg IV twice daily ? His lower extremities are wrapped, will continue ? Continue his home blood pressure medications ? Continue with Eliquis ?Continue with his home blood pressure medications, will monitor make adjustments as necessary ? Echo from 07/08/2025 with a PASP of 70 mmHg and D-shaped septum in systole and diastole, EF was lower range normal ? Will consult pulmonology while inpatient for possible medication adjustments, renal function prevents aggressive diuresis 2. DM2 with CKD 4 ? Continue with insulin ? Accu-Cheks ACHS ? Will monitor make adjustments as necessary ? Renal function is near baseline, will monitor ? She did have an episode of hyperkalemia on admission we will hold his potassium 3. Seizure disorder ? Stable ? Continue with Keppra 4. Depression/anxiety ? Stable ? Continue with his home medications 5. Gout ? Stable ? Continue with allopurinol DVT: Eliquis Allergies/Procedures Done in Hospital Allergies Penicillins (PCN) Allergy (Verified 07/06/25 15:29) Swelling Procedures: 2-D Echocardiogram Type of Care/Length of Stay Estimated LOS: Convalescent Care Less Than 30 days Type of Care Needed: Skilled Rehab Potential: Fair Prognosis: Fair Additional Orders/Day of Discharge Day of Discharge: 07/10/25 Dietary and Speech Recommendations Dietitian Recommendations/Changes: Continue cardiac; 2000 calorie controlled/consistent carbohydrate diet with 1500ml fluid restriction. Will discontinue glucerna shakes with meals,due to BMI being over 40kg/m2. Will reassess need for ONS at time of follow-up. Discharge Plan Admission Admit Date/Time: 07/06/25 19:03 Attending Provider: Eladio Lucas Primary Care Provider: Rios Downey Consulting Providers: Mikey Macias; Woody Brunson; Jennifer Xiao; Calvin Starr; Yaakov Love; Josh Cline; James Morales; Duong Pabon; Karri Valentin; Radha Cowan; Casey Salmeron; Kevin Sepulveda; Gustavo Goodman; Kiana James; Michelle Peters; Tatum Hollins; Nnamdi Tracey; Wan Acevedo; Esvin Sevilla; Rj Johnson; Anne Harden; Margie Flowers; Nhan Encarnacion; Cristian Berger; Juan José Carrera Discharge Orders/Prescriptions Prescriptions: New metoprolol tartrate 25 mg Tablet 12.5 mg PO BID Qty: 0 0RF Continued famotidine 20 mg tablet 20 [...] 25 MG tablet 25 mg PO DAILY allopurinol 300 mg tablet 300 mg PO DAILY menthol-zinc oxide [Calmoseptine] 0.44-20.6 % ointment 1 applic topical BID nystatin [Nystop] 100,000 unit/gram powder 1 applic topical BID calcitriol 0.5 mcg capsule 0.5 mcg PO RUMA isosorbide mononitrate 60 mg tablet extended release 24 hr 60 mg PO DAILY levetiracetam 500 mg tablet 500 mg PO BID insulin NPH isoph U-100 human 100 unit/mL suspension 10 unit SC BID amlodipine 2.5 mg tablet 2.5 mg PO DAILY Qty: 90 3RF Held furosemide 40 mg tablet 40 mg PO QDAY Qty: 90 3RF Hold Instructions: Resume on 07/12/25. Discontinued potassium chloride 20 mEq tablet,ER particles/crystals 20 meq PO DAILY Referrals / Follow Up: Rios Downey DO [Primary Care Provider] - Disposition Disposition (needs filled in before D/C Order can be placed): [facility] (1) Acute exacerbation of CHF (congestive heart failure) Qualifiers: Heart failure type: combined systolic and diastolic Qualified Code(s): I50.43- Acute on chronic combined systolic (congestive) and diastolic (congestive) heart failure 07/10/25 1047 <Electronically signed by Eladio Lucas MD> Cosigner Signature (if applicable): CC: Dr. Calvin Starr MD; Dr. Jennifer Xiao MD; Dr. Yaakov Love MD; Dr. James Morales MD; Dr. Josh Cline DO; Dr. Duong Pabon MD; Dr. Mikey Macias DO; Dr. Karri Valentin MD; Dr. Casey Salmeron MD; Dr. Kevin Sepulveda MD; Dr. Gustavo Goodman MD; Dr. Kiana James MD; Dr. Michelle Peters MD; Dr. Tatum Hollins MD; Dr. Woody Brunson DO; Dr. Wan Acevedo MD; Dr. Nnamdi Tracey MD; Dr. Esvin Sevilla MD; Dr. Rios Downey DO; Dr. Margie Flowers MD; Dr. Anne Harden MD; Dr. Rj Johnson DO; Dr. Nhan Encarnacion DO; Dr. Cristian Berger MD; Dr. Juan José Carrera MD; Dr. Radha Cowan MD ~ [facility] Work Phone: 1(648) 294-276108-12-2025 Consult note Author James Morales [facility] Note Date/Time July 09, 2025 4: 11pm [facility] Medical Records Department [address] [place] [address] Consultation - Quarrying Manager 07/09/25 1601 MR#: [id number] Acct: [id number] Name: JODIE CARDENAS Rep #:[id number] : 1940 85 From: James Bustos PCP: Dr. Rios Downey, DO Status:ADM IN Location: [place] [address] HPI Consult Data Date of Consult: 07/09/25 HPI Narrative HPI Narrative: JODIE CARDENAS, is a 85 M who presents [facility] Medical History PAF (paroxysmal atrial fibrillation) AUTUMN treated with BiPAP Former smoker Chronic respiratory failure with hypoxia 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 Essential (primary) hypertension [...] BID BLOOD T HINNER 10/07/22 07/03/23 History menthol 0.44 %-zinc oxide 20.6 % 1 applic topical BID 08/18/23 08/18/23 History topical ointment (Calmoseptine) nystatin 100,000 unit/gram topical 1 applic topical BI D 08/18/23 08/18/23 History powder (Nystop) nitroglycerin 0.4 mg sublingual 0.4 mg sublingual Q5-1 5M PRN chest 03/23/24 Unknown Rx tablet (Nitrostat) pain #25 tabs amlodipine 2.5 mg tablet 2.5 mg PO DAILY #90 tabs Unknown Rx furosemide 40 mg tablet 40 mg PO QDAY #90 tabs 01/25 Unknown Rx insulin NPH isoph U-100 human 100 10 unit subcut BID D IABETES 05/31/25 Unknown History unit/mL subcutaneous suspension levetiracetam 500 mg tablet 500 mg PO BID 05/31/25 Unk nown History calcitriol 0.5 mcg capsule 0.5 mcg PO MOWEFR 07/06/25 Unknown History isosorbide mononitrate 60 mg 60 mg PO DAILY 07/06/25 U nknown History tablet,extended release 24 hr potassium chloride 20 mEq 20 meq PO DAILY 07/06/25 Unk nown History tablet,extended release(part/cryst) Allergy/AdvReac Type Severity Reaction Status Date / Time Penicillins (PCN) Allergy Swelling Verified 07/06/25 15:29 Family History Father Myocardial infarction Mother CVA (cerebral vascular accident) Brother CAD (coronary artery disease) Diabetes Surgical History Hx of cholecystectomy (01/13/17) H/O aortic valve replacement (02/24/16) H/O coronary artery bypass surgery (02/24/16) Social History household members: family and other details: Granddaughter. 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 Smoking Status: Former smoker how long ago did patient quit smokin + years alcohol intake: never substance use type: does not use caffeine: Yes Type: carbonated beverages and tea Objective Data Objective Data Vital Signs: Vital Signs Last response 3 Temperature 36.1 C L 07/09/25 10:40 Temperature Source Temporal 07/09/25 10:40 Pulse Rate 68 07/09/25 10:40 Pulse Strength Normal (2+) 07/09/25 10:00 Respiratory Rate 18 07/09/25 10:40 Respiratory Effort Normal, Non-Labored 07/09/25 13:59 Respiratory Depth Normal 07/09/25 13:59 Respiratory Pattern Normal 07/09/25 13:59 Blood Pressure 136/78 H 07/09/25 10:40 Blood Pressure Mean 97 07/09/25 10:40 Blood Pressure Source Monitor 07/09/25 04:41 Blood Pressure Position Semi-Fowlers 07/09/25 04:41 Blood Pressure Location Left Arm 07/09/25 04:41 Pulse Ox 97 07/09/25 10:40 Oxygen Delivery Method Nasal Cannula 07/09/25 13:59 Oxygen Flow Rate (L/min) 2 07/09/25 13:59 I&O: I&O Last 24 Hours 3 07/08/25 07/09/25 07/09/25 23:59 11:59 23:59 Intake Total 480 / 480 480 / 480 Output Total 300 / 1400 600 / 600 Balance 180 / -920 -600 / -120 480 / -120 I&O: Total Stay 3 07/06/25 15:27 thru 07/09/25 12:00 Intake Total 2160 Output Total 3600 Balance -1440 Current Meds Ordered / Administered: Current meds ordered / Administered 3 Generic Name Dose Route Start Last Admin Trade Name Freq PRN Reason Stop Dose Admin Acetaminophen 650 mg 07/06/25 20:22 07/09/25 09:54 Acetaminophen 325 Mg Tablet PO 650 mg Q6H PRN PRN Administration Pain 1-10 Or Fever>100.7 Hydrocodone Bitart/Acetaminophen 1 tablet 07/07/25 11:35 07/08/25 11:06 Hydrocodone Bitartrate/Apap 5/325 Tablet PO 1 tablet Q4H PRN PRN Administration Pain Score 1-10 Allopurinol 300 mg 07/07/25 10:00 07/09/25 09:25 Allopurinol 300 Mg Tablet PO 300 mg DAILY AYLIN Administration Apixaban 2.5 mg 07/06/25 22:00 07/09/25 09:26 Apixaban 2.5 Mg Tablet ([facility]) PO 2.5 mg BID AYLIN Administration Aspirin 81 mg 07/07/25 08:00 07/08/25 22:51 Aspirin E.C. 81 Mg Tablet PO 81 mg BREAKFAST AYLIN Administration Calcitriol 0.5 mcg 07/08/25 10:00 07/08/25 11:09 Calcitriol 0.25 Mcg Capsule PO 0.5 mcg MOWEFR AYLIN Administration Cholecalciferol 25 mcg 07/07/25 10:00 07/09/25 09:25 Cholecalciferol (Vit D3) 25 Mcg Tablet (1,000 Units) PO 25 mcg DAILY AYLNI Administration Famotidine 20 mg 07/07/25 10:00 07/09/25 09:25 Famotidine 20 Mg Tablet PO 20 mg DAILY AYLIN Administration Furosemide 40 mg 07/08/25 18:00 07/09/25 09:40 Furosemide 40 Mg/4 Ml Vial IV 40 mg BIDLX AYLIN Administration Glucagon 1 mg 07/06/25 20:22 Glucagon 1 Mg/Ml Syringe IM X1 PRN HYPOGLYCEMIA Protocol Dextrose 250 mls @ 0 mls/hr 07/06/25 20:22 Dextrose 10%-Water IV .Q0M PRN HYPOGLYCEMIA Protocol As Directed Sodium Chloride 250 mls @ 15 mls/hr 07/06/25 20:41 IV .[id number] PRN Saline Flush Sodium Chloride 250 mls @ 15 mls/hr 07/06/25 20:41 IV .[id number] PRN Additional IVPB Infusion Insulin Glargine 10 unit 07/06/25 22:00 07/09/25 09:39 Insulin Glargine-Yfgn 100 Unit/Ml Pen SC 10 unit BID AYLIN Administration Protocol Insulin Human Lispro 0 unit 07/06/25 22:00 07/09/25 12:52 Insulin Lispro 100 Unit/Ml Insuln.Pen SC Not Given ACHS AYLIN Protocol Isosorbide Mononitrate 60 mg 07/07/25 10:00 07/09/25 09:25 Isosorbide Mononitrate 60 Mg Tablet PO 60 mg DAILY AYLIN Administration Protocol Levetiracetam 500 mg 07/06/25 22:00 07/09/25 09:25 Levetiracetam 500 Mg Tablet PO 500 mg BID AYLIN Administration Metoprolol Tartrate 12.5 mg 07/07/25 22:00 07/09/25 09:24 Metoprolol Tartrate 25 Mg Tablet PO 12.5 mg BID AYLIN Administration Protocol Multivitamins 1 tablet 07/07/25 08:00 07/09/25 09:40 Multivitamins,Therapeutic Tablet PO 1 tablet DAILYCM AYLIN Administration Nitroglycerin 0.4 mg 07/06/25 20:41 Nitroglycerin (Inpatient Use) 0.4 Mg Tab.Subl SL Q5M PRN CARDIAC/CHEST PAIN Nystatin 1 applic 07/06/25 22:00 07/09/25 09:26 Nystatin Powder 15gm Bottle TOPICAL 1 applic BID [facility] Administration Protocol Olanzapine 2.5 mg 07/06/25 22:00 07/08/25 22:56 Olanzapine 2.5 Mg Tablet PO 2.5 mg QHS AYLIN Administration Protocol Sertraline HCl 25 mg 07/07/25 10:00 07/09/25 09:26 Sertraline 50 Mg Tablet PO 25 mg DAILY AYLIN Administration Sodium Chloride 10 - 40 ml 07/06/25 20:41 07/06/25 21:22 0.9% Saline Lock 10 Ml Syringe IV 10 ml UD PRN Administration SALINE FLUSH Lab / Micro Data 07/09/25 05:35 07/09/25 05:35 Labs: Laboratory Results - last 24 hr 07/08/25 16:51: POC Glucose 92 07/08/25 22:46: POC Glucose 59 L 07/09/25 00:17: POC Glucose 108 H 07/09/25 05:35: WBC 7.9, RBC 3.10 L, Hgb 10.0 L, Hct 30.5 L, MCV 98.4 H, MCH 32.3 H, MCHC 32.8, RDW Std Deviation 56.8 H, RDW Coeff of Yeny 16.8 H, Plt Count 115 L, MPV 11.5, Immature Gran % (Auto) 0.500, Neut % (Auto) 70.5 H, Lymph % (Auto) 17.7 L, [place] % (Auto) 7.5, Eos % (Auto) 3.3, Baso % (Auto) 0.5, Absolute Neuts (auto) 5.6, Absolute Lymphs (auto) 1.40, Nucleated RBC % 0.8, Sodium 139, Potassium 4.4, Chloride 109 H, Carbon Dioxide 14.4 L, Anion Gap 15, BUN 88 H, Creatinine 2.92 H, Estim Creat Clear Calc 21.79 L, Est GFR (MDRD) Non-Af 21 L, BUN/Creatinine Ratio 30.2 H, Glucose 80, Calcium 9.2 07/09/25 06:02: POC Glucose 107 H 07/09/25 12:51: POC Glucose 91 Assessment and Plan . Assessment and plan: Acute Exacerbation of Combined CHF Chronic Hypoxemic Respiratory Failure Likely Sleep Disordered Breathing CKD Pulmonary HTN (secondary) Volume Overload Mr. Cardenas has a constellation of issues that likely have no real definitive solution. Suspect his RV dysfunction noted on echo is related to chronically elevated LVEDP with some component of mitral stenosis (noted on prior echo) along with intermittent hypoxemic vasoconstriction. Optimizing his volume status has proved to be difficult. Given these issues, his age, and other co-morbidities the limits of care in place seem appropriate. If he finds that nebulized bronchodilators provide some symptomatic relief then these can be rx'cristina discharge, but I don't have a sound physiologic basis to think that they would help. I would definitely avoid inhaled steroids in this pt. Ultimately he appears to be in the final phase of his life. If available establishing care with a acoustic intelligence specialist would seem appropriate. Short of this a hospice referral could be considered. The entirety of this encounter was done via Telemedicine 07/09/25 1610 <Electronically signed by James Morales MD> Cosigner Signature (if applicable): CC: Dr. Rios Downey, DO~ Signed [facility] Work Phone: 1(178) 406-571908-12-2025 Progress note Author Eladio Lucas [facility] Note Date/Time July 09, 2025 9: 47am [facility] Medical Records Department [address] [facility] [place] [address] Progress Note - Hospitalist 07/09/25 0945 MR#: [id number] Acct: [id number] Name: JODIE CARDENAS Rep #:[id number] : 1940 85 From: Eladio ramirez MD PCP: Dr. Rios Downey, DO Status:ADM IN Location: [place] [address] Subjective Subjective On his baseline oxygen but feels short of breath. Echo with severe pulmonary hypertension Objective Data Objective Data Vital Signs: Vital Signs Temp Pulse Resp BP Pulse Ox O2 Del Method O2 Flow Rate 97.6 F L 78 16 127/67 H 100 Nasal Cannula 2 07/09/25 04:41 07/09/25 09:24 07/09/25 04:41 07/09/25 04:41 07/09/25 04:41 07/09/25 08:05 07/09/25 08:05 Oxygen Flow Rate (L/min) 2 Oxygen Delivery Method Nasal Cannula Weight: 239 lb 13.807 oz Body Mass Index (BMI) 38.5 Intake & Output: Intake and Output for Last 24 Hours 07/08/25 07/09/25 07/10/25 03:59 03:59 03:59 Intake Total 800 / 800 480 / 480 Output Total 1600 / 1600 1000 / 1000 600 / 600 Balance -800 / -800 -520 / -520 -600 / -600 Lab / Micro Data 07/09/25 05:35 07/09/25 05:35 Labs: Laboratory Results - last 24 hr 07/08/25 12:30: POC Glucose 125 H 07/08/25 16:51: POC Glucose 92 07/08/25 22:46: POC Glucose 59 L 07/09/25 00:17: POC Glucose 108 H 07/09/25 05:35: WBC 7.9, RBC 3.10 L, Hgb 10.0 L, Hct 30.5 L, MCV 98.4 H, MCH 32.3 H, MCHC 32.8, RDW Std Deviation 56.8 H, RDW Coeff of Yeny 16.8 H, Plt Count 115 L, MPV 11.5, Immature Gran % (Auto) 0.500, Neut % (Auto) 70.5 H, Lymph % (Auto) 17.7 L, [place] % (Auto) 7.5, Eos % (Auto) 3.3, Baso % (Auto) 0.5, Absolute Neuts (auto) 5.6, Absolute Lymphs (auto) 1.40, Nucleated RBC % 0.8, Sodium 139, Potassium 4.4, Chloride 109 H, Carbon Dioxide 14.4 L, Anion Gap 15, BUN 88 H, Creatinine 2.92 H, Estim Creat Clear Calc 21.79 L, Est GFR (MDRD) Non-Af 21 L, BUN/Creatinine Ratio 30.2 H, Glucose 80, Calcium 9.2 07/09/25 06:02: POC Glucose 107 H Micro: Microbiology 07/06/25 16:45 Mucosa - Nose SARS-CoV-2, Influenza & RSV (PCR) - Final Radiography Diagnostic Testing: Radiology Impression Echocardiogram 07/06/25 20:22 Interpretation Summary Normal LV size. Left ventricular systolic function is lower limits of normal. D shaped septum in systole and diastole. Mild concentric left ventricular hypertrophy. Pulmonary artery systolic pressure is 70 mmHg. Severe pulmonary hypertension. Ordering Physician: Mikey Macias Referring Physician: RIOS DOWNEY Performed By: Judy Wynne RCS Physical Exam Narrative General: Alert, Oriented x3, [...] to Palpation of Joints or Extremities Neurological: No focal neurological deficits, moves all extremities Psych/Mental Status: Flat Assessment & Plan Assessment/Plan (1) Acute exacerbation of CHF (congestive heart failure): QUALIFIERS: Heart failure type: combined systolic and diastolic Qualified Code(s): I50.43 - Acute on chronic combined systolic (congestive) and diastolic (congestive) heart failure PLAN: Plan 1. Acute on chronic systolic CHF exacerbation in the setting of chronic hypoxicrespiratory failure/essential HTN/HLD/paroxysmal A-fib ? He is on his baseline oxygen of 2-1/2 L at rest ? Continue with Lasix 40 mg IV twice daily ? His lower extremities are wrapped, will continue ? Continue his home blood pressure medications ? Continue with Eliquis ?Continue with his home blood pressure medications, will monitor make adjustments as necessary ? Echo from 07/08/2025 with a PASP of 70 mmHg and D-shaped septum in systole and diastole, EF was lower range normal ? Will consult pulmonology while inpatient for possible medication adjustments, renal function prevents aggressive diuresis 2. DM2 with CKD 4 ? Continue with insulin ? Accu-Cheks ACHS ? Will monitor make adjustments as necessary ? Renal function is near baseline, will monitor ? She did have an episode of hyperkalemia on admission we will hold his potassium 3. Seizure disorder ? Stable ? Continue with Keppra 4. Depression/anxiety ? Stable ? Continue with his home medications 5. Gout ? Stable ? Continue with allopurinol DVT: Eliquis Charges/Coding Visit Charges Inpatient E&M: 74777 Subs Hosp L2 07/09/25 0947 <Electronically signed by Eladio Lucas MD> Cosigner Signature (if applicable): CC: ~ Signed [facility] Work Phone: 1(178) 383-217008-11-2025 Progress note Author Eladio Lucas [facility] Note Date/Time July 08, 2025 1: 30pm [facility] Medical Records Department [address] [place] [address] Progress Note - Hospitalist 07/08/25 1308 MR#: [id number] Acct: [id number] Name: JODIE CARDENAS Rep #:[id number] : 1940 85 From: Eladio ramirez MD PCP: Dr. Rios Downey, DO Status:ADM IN Location: [place] [address] Subjective Subjective Still feels short of breath despite being on his home oxygen requirements Objective Data Objective Data Vital Signs: Vital Signs Temp Pulse Resp BP Pulse Ox O2 Del Method O2 Flow Rate 97.5 F L 50 L 16 135/68 H 99 Nasal Cannula 2 07/08/25 11:04 07/08/25 11:04 07/08/25 11:04 07/08/25 11:04 07/08/25 11:04 07/08/25 11:04 07/08/25 11:04 Oxygen Flow Rate (L/min) 2 Oxygen Delivery Method Nasal Cannula Weight: 236 lb 12.423 oz Body Mass Index (BMI) 38.0 Intake & Output: Intake and Output for Last 24 Hours 07/07/25 07/08/25 07/09/25 03:59 03:59 03:59 Intake Total 400 / 400 800 / 800 Output Total 400 / 400 1600 / 1600 700 / 700 Balance 0 / 0 -800 / -800 -700 / -700 Lab / Micro Data 07/07/25 05:33 07/08/25 06:01 Labs: Laboratory Results - last 24 hr 07/07/25 16:05: POC Glucose 100 07/07/25 22:01: POC Glucose 123 H 07/08/25 06:00: POC Glucose 96 07/08/25 06:01: Sodium 138, Potassium 4.9, Chloride 107, Carbon Dioxide 13.3 L, Anion Gap 17 H, BUN 89 H, Creatinine 2.99 H, Estim Creat Clear Calc 21.13 L, EstGFR (MDRD) Non-Af 20 L, BUN/Creatinine Ratio 29.7 H, Glucose 89, Calcium 9.4 07/08/25 12:30: POC Glucose 125 H Micro: Microbiology 07/06/25 16:45 Mucosa - Nose SARS-CoV-2, Influenza & RSV (PCR) - Final Physical Exam Narrative General: [...] to Palpation of Joints or Extremities Neurological: No focal neurological deficits, moves all extremities Psych/Mental Status: Flat Assessment & Plan Assessment/Plan (1) Acute exacerbation of CHF (congestive heart failure): QUALIFIERS: Heart failure type: combined systolic and diastolic Qualified Code(s): I50.43 - Acute on chronic combined systolic (congestive) and diastolic (congestive) heart failure PLAN: Plan 1. Acute on chronic systolic CHF exacerbation in the setting of chronic hypoxicrespiratory failure/essential HTN/HLD/paroxysmal A-fib ? He is on his baseline oxygen of 2-1/2 L at rest ? Continue with Lasix 40 mg IV twice daily ? His lower extremities are wrapped, will continue ? Continue his home blood pressure medications ? Continue with Eliquis ?Continue with his home blood pressure medications, will monitor make adjustments as necessary 2. DM2 with CKD 4 ? Continue with insulin ? Accu-Cheks ACHS ? Will monitor make adjustments as necessary ? Renal function is near baseline, will monitor ? She did have an episode of hyperkalemia on admission we will hold his potassium 3. Seizure disorder ? Stable ? Continue with Keppra 4. Depression/anxiety ? Stable ? Continue with his home medications 5. Gout ? Stable ? Continue with allopurinol DVT: Eliquis Charges/Coding Visit Charges Inpatient E&M: 22402 Subs Hosp L2 07/08/25 1330 <Electronically signed by Eladio Lucas MD> Cosigner Signature (if applicable): CC: ~ Signed [facility] Work Phone: [phone] 460-705708-10-2025 Progress note Author [facility] Note Date/Time July 07, 2025 4: 59pm [facility] Medical Records Department [address] [place] [address] Progress Note - Hospitalist 07/07/25 1647 MR#: [id number] Acct: [id number] Name: JODIE CARDENAS Rep #:[id number] : 1940 85 From: Woody Brunson DO PCP: Dr. Rios Downey, DO Status:ADM IN Location: [place] [address] Reason for Visit Chief Complaint: Shortness of breath Subjective Subjective Patient was seen and examined today, his granddaughter was in the room at the time of my examination. Patient is currently on 3 L of oxygen via nasal cannula, according to the granddaughter, patient has been on oxygen for around 11 years. Patient has been complaining of some hip pain today, he denies any trauma, I wrote for Vicodin for the patient Objective Data Objective Data Vital Signs: Vital Signs Temp Pulse Resp BP Pulse Ox O2 Del Method O2 Flow Rate 97.5 F L 57 L 20 H 150/74 H 100 Nasal Cannula 3 07/07/25 16:09 07/07/25 16:09 07/07/25 16:09 07/07/25 16:09 07/07/25 16:09 07/07/25 16:09 07/07/25 16:09 Oxygen Flow Rate (L/min) 3 Oxygen Delivery Method Nasal Cannula Weight: 114.5 kg Body Mass Index (BMI) 40.6 Intake & Output: Intake and Output for Last 24 Hours 07/05/25 07/06/25 07/07/25 23:59 23:59 23:59 Intake Total 280 / 400 520 / 520 Output Total 1150 / 1150 Balance 280 / 0 -630 / -630 Lab / Micro Data 07/07/25 05:33 07/07/25 05:33 Labs: Laboratory Results - last 24 hr 07/06/25 16:18: WBC 6.7, RBC 3.20 L, Hgb 10.4 L, Hct 32.4 L, MCV 101.3 H, MCH 32.5 H, MCHC 32.1, RDW Std Deviation 60.4 H, RDW Coeff of Yeny 16.7 H, Plt Count 117 L, MPV 11.7, Immature Gran % (Auto) 0.700, Neut % (Auto) 70.8 H, Lymph % (Auto) 16.9 L, [place] % (Auto) 9.3, Eos % (Auto) 1.9, Baso % (Auto) 0.4, Absolute Neuts (auto) 4.7, Absolute Lymphs (auto) 1.13, Nucleated RBC % 0.4, Sodium 137, Potassium 6.3 H*, Chloride 108, Carbon Dioxide 14.7 L, Anion Gap 15, BUN 76 H, Creatinine 3.01 H, Estim Creat Clear Calc 22.08 L, Est GFR (MDRD) Non-Af 20 L, BUN/Creatinine Ratio 25.3 H, Glucose 119 H, Calcium 9.4, Troponin T High Sens 104H*, [place] [address] H 07/06/25 17:42: POC Glucose 91 07/06/25 18:40: Potassium 5.4 H, Troponin T Hi Sens 2 Hr 96 H* 07/06/25 20:15: Troponin T Hi Sens 4Hr 103 H* 07/06/25 21:10: POC Glucose 80 07/07/25 05:33: WBC 7.9, RBC 3.05 L, Hgb 9.9 L, Hct 30.7 L, MCV 100.7 H, MCH 32.5 H, MCHC 32.2, RDW Std Deviation 58.0 H, RDW Coeff of Yeny 16.3 H, Plt Count 115 L, MPV 11.6, Immature Gran % (Auto) 0.400, Neut % (Auto) 75.4 H, Lymph % (Auto) 14.1 L, [place] % (Auto) 8.8, Eos % (Auto) 0.9, Baso % (Auto) 0.4, Absolute Neuts (auto) 6.0, Absolute Lymphs (auto) 1.12, Nucleated RBC % 0.8, Sodium 138, Potassium 5.5 H, Chloride 109 H, Carbon Dioxide 13.3 L, Anion Gap 16 H, BUN 81 H, Creatinine 2.86 H, Estim Creat Clear Calc 23.63 L, Est GFR (MDRD) Non-Af 21 L,BUN/Creatinine Ratio 28.3 H, Glucose 89, Hemoglobin A1c 5.7, Calcium 9.8, TSH 7.660 H 07/07/25 06:25: POC Glucose 85 07/07/25 11:02: POC Glucose 122 H 07/07/25 16:05: POC Glucose 100 Micro: Microbiology 07/06/25 16:45 Mucosa - Nose SARS-CoV-2, Influenza & RSV (PCR) - Final Radiography Diagnostic Testing: Radiology Impression Chest X-Ray 07/06/25 16:45 IMPRESSION: CARDIOMEGALY. NO ACUTE FINDINGS. Reading Location: [id number] Physical Exam Const alert, oriented x3 and no apparent distress Constitutional Narrative: Patient has class III obesity HEENT head/scalp atraumatic and moist oral mucous membranes Eyes PERRL, EOMs intact bilaterally and conjunctivae normal Neck supple and no JVD Resp normal respiratory effort, no retractions and no use of accessory muscles Resp Narrative: Breath sounds are diminished bilaterally Auscultation: Negative for rales, rhonchi or wheezes Cardio regular rate, regular rhythm, S1 normal heart sound, S2 normal heart sound and no murmurs GI soft to palpation, non-tender and non-distended GI Narrative: Patient has class III obesity Extremity Extremity Narrative: Lower leg edema is noted bilaterally General Extremity: edema bilateral Neuro oriented x3, CN's II-XII intact bilaterally, moves all extremities, no focal motor deficits and no sensory deficits noted Speech: speech normal Psych affect normal Assessment & Plan Assessment/Plan (1) Acute exacerbation of CHF (congestive heart failure): QUALIFIERS: Heart failure type: combined systolic and diastolic Qualified Code(s): I50.43 - Acute on chronic combined systolic (congestive) and diastolic (congestive) heart failure PLAN: Plan 1. Acute exacerbation of chronic congestive heart failure with reduced EF- continue IV Lasix-I will increase the dosage to 40 mg every 8 hours #2 chronic hypoxic respiratory failure-pulse ox will be monitored #3 chronic kidney disease stage IV-complicates care, management, recovery, and prognosis #4 hyperkalemia-patient's potassium today was 5.5, BMP will be rechecked tomorrow #5 seizure disorder-patient is on Keppra #6 chronic depression-patient is on Zoloft and Zyprexa #7 type 2 diabetes-blood sugars will be monitored, sliding scale insulin will beadministered as indicated #8 class III obesity-complicates care, management, recovery, and prognosis Total clinical time spent by myself addressing the patient's medical issues, reviewing all of his data, and collaborating with patient's care team: 50 minutes Charges/Coding Visit Charges Inpatient E&M: 14161 Subs Hosp L3 07/07/25 5012 <Electronically signed by Woody Brunson DO> Cosigner Signature (if applicable): CC: ~ Signed [facility] Work Phone: [phone] Discharge summary Author Brittny Modi [facility] Note Date/Time July 06, 2025 9:4 9pm [facility] Medical Records Department [address] [place] [address] Emergency Department Summary 07/06/25 MR#: [id number] Acct: [id number] Name: JODIE CARDENAS Rep #:[id number] : 1940 85 From: Brittny Modi MD PCP: Dr. Rios Downey, DO Status:ADM IN Location: [place] [address] HPI History of Present Illness Chief Complaint: Shortness of Breath Narrative Narrative: Patient is an 85-year-old male presenting to the emergency department for shortness of breath. Granddaughter at bedside. She helps provide history. He has a history of CHF, CKD, CAD, diabetes, A-fib, hypertension, hyperlipidemia. Patient states that for the past few days he has been short of breath. He wears2 to 3 L baseline at rest and 5 L oxygen while ambulating. He reports that he has been feeling very fatigued. Reports lower extremity edema as well. Denies fever, chills, chest pain, abdominal pain, nausea, vomiting, diarrhea. Denies any known sick contacts. Denies history of DVT or PE he is on Eliquis and has been compliant with it. [facility] Medical History PAF (paroxysmal atrial fibrillation) AUTUMN treated with BiPAP Former smoker Chronic respiratory failure with hypoxia 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 Essential (primary) hypertension [...] BID BLOOD T HINNER 10/07/22 07/03/23 History menthol 0.44 %-zinc oxide 20.6 % 1 applic topical BID 08/18/23 08/18/23 History topical ointment (Calmoseptine) nystatin 100,000 unit/gram topical 1 applic topical BI D 08/18/23 08/18/23 History powder (Nystop) nitroglycerin 0.4 mg sublingual 0.4 mg sublingual Q5-1 5M PRN chest 03/23/24 Unknown Rx tablet (Nitrostat) pain #25 tabs amlodipine 2.5 mg tablet 2.5 mg PO DAILY #90 tabs Unknown Rx furosemide 40 mg tablet 40 mg PO QDAY #90 tabs 01/25 Unknown Rx insulin NPH isoph U-100 human 100 10 unit subcut BID D IABETES 05/31/25 Unknown History unit/mL subcutaneous suspension levetiracetam 500 mg tablet 500 mg PO BID 05/31/25 Unk nown History calcitriol 0.5 mcg capsule 0.5 mcg PO MOWEFR 07/06/25 Unknown History isosorbide mononitrate 60 mg 60 mg PO DAILY 07/06/25 U nknown History tablet,extended release 24 hr potassium chloride 20 mEq 20 meq PO DAILY 07/06/25 Unk nown History tablet,extended release(part/cryst) Allergy/AdvReac Type Severity Reaction Status Date / Time Penicillins (PCN) Allergy Swelling Verified 07/06/25 15:29 Family History Father Myocardial infarction Mother CVA (cerebral vascular accident) Brother CAD (coronary artery disease) Diabetes Surgical History Hx of cholecystectomy (01/13/17) H/O aortic valve replacement (02/24/16) H/O coronary artery bypass surgery (02/24/16) Social History household members: family and other details: Granddaughter. 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 No acute distress. Chronically unwell appearing. Obese. HEENT: Head is normocephalic and atraumatic, sinuses nontender, pupils equal round and reactive. Nares are patent. Oropharynx and throat exams normal. Neck: Supple without lymphadenopathy nontender Cardiovascular: Bradycardic, no murmurs. No rubs or gallops. Normal S1 and S2 Respiratory: Bilateral lower lobe rhonchi heard. No wheezing. Abdominal: Soft and nontender. Normal bowel sounds. No guarding or rebound. Nonsurgical abdomen Extremities: Symmetric bilateral lower extremity pitting edema. Normal range of motion. Normal sensation. Skin: No rash or redness. Neurological: Cranial nerves II through XII are grossly intact. Normal strengthand sensation. Normal cerebellar function The rest of the physical exam is unremarkable Const Vital Signs: 07/06/25 15:28 07/06/25 15:29 07/06/25 16:27 Temperature 98.2 F 98.2 F Temperature Source Oral Oral Pulse Rate 51 L 51 L 49 L Respiratory Rate 16 16 17 Respiratory Effort Respiratory Pattern Blood Pressure 120/68 120/68 134/68 H Blood Pressure Mean 85 85 90 Pulse Ox 100 100 100 Oxygen Delivery Method Nasal Cannula Nasal Cannula Room Air Oxygen Flow Rate (L/min) 5 5 07/06/25 16:36 07/06/25 16:39 07/06/25 16:42 Temperature Temperature Source Pulse Rate Respiratory Rate Respiratory Effort Short of Breath Respiratory Pattern Tachypnea Blood Pressure Blood Pressure Mean Pulse Ox 100 Oxygen Delivery Method Nasal Cannula Nasal Cannula Nasal Cannula Oxygen Flow Rate (L/min) 4 2.5 07/06/25 17:00 07/06/25 18:00 07/06/25 19:00 Temperature Temperature Source Pulse Rate 47 L 47 L 47 L Respiratory Rate 16 13 16 Respiratory Effort Respiratory Pattern Blood Pressure 129/66 H 115/74 135/64 H Blood Pressure Mean 87 88 85 Pulse Ox 100 98 100 Oxygen Delivery Method Oxygen Flow Rate (L/min) MDM MDM MDM Narrative Medical decision making narrative: Patient is an 85-year-old male presenting to emergency department for shortness of breath. Patient was seen and examined. He is bradycardic at 51 with a stable BP. Normal respirations and afebrile at time of arrival. Saturating 100% on 5 L nasal cannula which she normally wears with activity, 2 to 3 L at rest. Differential includes but is not limited to: CHF exacerbation, ACS, pneumonia, viral, PE less likely given the patient is on Eliquis and has been compliant. CBC with no leukocytosis and chronic anemia of 10.4. BMP with what appears to be DARRYL on CKD with hyperkalemia of 6.3. With bradycardia and QRS widening did treat this given risks of not treating a possible hyperkalemic level although labs possibly hemolyzed. Elevated BNP of 12,661, consistent with his exam pointing towards CHF exacerbation as cause of hypoxia. Inital troponin of 104, reflex of 96. Suspect type 2 NSTEMI secondary from his CHF exacerbation. Chest x-ray shows cardiomegaly with no acute findings. Given the patient's CHF exacerbation necessitating increased oxygen from baseline and his hyperkalemia, recommended admission to patient and daughter. They were agreeable. Admitted to hospitalist service under Dr. Macias for further management. History & Record Review Discussion w/independent historian: Patient and Family Lab Data Attestation: I reviewed the patient's lab results. Labs: Laboratory Results - last 24 hr 07/06/25 07/06/25 07/06/25 16:18 17:42 18:40 WBC 6.7 RBC 3.20 L Hgb 10.4 L Hct 32.4 L MCV 101.3 H MCH 32.5 H MCHC 32.1 RDW Std Deviation 60.4 H RDW Coeff of Yeny 16.7 H Plt Count 117 L MPV 11.7 Immature Gran % (Auto) 0.700 Neut % (Auto) 70.8 H Lymph % (Auto) 16.9 L [place] % (Auto) 9.3 Eos % (Auto) 1.9 Baso % (Auto) 0.4 Absolute Neuts (auto) 4.7 Absolute Lymphs (auto) 1.13 Nucleated RBC % 0.4 Sodium 137 Potassium 6.3 H* 5.4 H Chloride 108 Carbon Dioxide 14.7 L Anion Gap 15 BUN 76 H Creatinine 3.01 H Estim Creat Clear Calc 22.08 L Est GFR (MDRD) Non-Af 20 L BUN/Creatinine Ratio 25.3 H Glucose 119 H Calcium 9.4 Troponin T High Sens 104 H* Troponin T Hi Sens 2 Hr 96 H* [place] [address] H POC Glucose 91 Radiography Chest X-Ray - ED: 2 View, Read by ED Physician, Cardiomegaly and No Infiltrates Diagnostic Testing: Clinical Impression(s) from Imaging Studies Chest X-Ray 07/06/25 16:45 IMPRESSION: CARDIOMEGALY. NO ACUTE FINDINGS. Reading Location: [facility] Management Discussion w/another healthcare provider: Hospitalist Discharge Plan Disposition Disposition: Acute Care Hospital [facility] Discharge Date/Time: 07/06/25 20:19 What to do if you have Problems For any increased pain, shortness of breath, bleeding, nausea or vomiting, chestpain, or any unexpected problems, contact your Primary Care Provider. Call [facility] ([phone]) or report to the closest Emergency Room. Call 911 if necessary. 07/06/252148 <Electronically signed by Brittny Modi MD> Cosigner Signature (if applicable): CC: Dr. Rios Downey, DO ~ Signed [facility] Work Phone: [phone]) 554-836208-09-2025 History and physical note Author Mikey Macias [facility] Note Date/Time July 06, 2025 7:2 9pm [facility] Medical Records Department [address] [place] [address] H&P Exam - Hospitalist 07/06/251912 MR#: [id number] Acct: [id number] Name: JODIE CARDENAS Rep #:[id number] : 1940 85 From: Mikey Macias DO PCP: Dr. Rios Downey DO Status:REG ER Location: ED HPI - General General Date of Service: 07/06/25 Chief Complaint: Shortness of breath HPI Narrative JODIE CARDENAS, is a 85 M who presents with increased shortness of breath with exertion and increased lower extremity edema. This is an 85-year-old male with a history of HFrEF presents with the above symptoms. Legs are very swollen and tight. Does not check his weight daily so unclear he had put on any weight. About presented to the emergency room where he had an elevated BNP of 12,661, troponin of 104 chest x-ray was unremarkable but was also noted that his potassium was elevated at 6.3. He had received dextrose and insulin, calcium gluconate as well as Tylenol and furosemide. It was later determined that the potassium collected was actually hemolyzed. A repeat potassium has been orderedand is currently pending. [facility] Medical History PAF (paroxysmal atrial fibrillation) AUTUMN treated with BiPAP Former smoker Chronic respiratory failure with hypoxia 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 Essential (primary) hypertension [...] BID BLOOD T HINNER 10/07/22 07/03/23 History menthol 0.44 %-zinc oxide 20.6 % 1 applic topical BID 08/18/23 08/18/23 History topical ointment (Calmoseptine) nystatin 100,000 unit/gram topical 1 applic topical BI D 08/18/23 08/18/23 History powder (Nystop) nitroglycerin 0.4 mg sublingual 0.4 mg sublingual Q5-1 5M PRN chest 03/23/24 Unknown Rx tablet (Nitrostat) pain #25 tabs amlodipine 2.5 mg tablet 2.5 mg PO DAILY #90 tabs Unknown Rx furosemide 40 mg tablet 40 mg PO QDAY #90 tabs 01/25 Unknown Rx insulin NPH isoph U-100 human 100 10 unit subcut BID D IABETES 05/31/25 Unknown History unit/mL subcutaneous suspension levetiracetam 500 mg tablet 500 mg PO BID 05/31/25 Unk nown History calcitriol 0.5 mcg capsule 0.5 mcg PO MOWEFR 07/06/25 Unknown History isosorbide mononitrate 60 mg 60 mg PO DAILY 07/06/25 U nknown History tablet,extended release 24 hr potassium chloride 20 mEq 20 meq PO DAILY 07/06/25 Unk nown History tablet,extended release(part/cryst) Allergy/AdvReac Type Severity Reaction Status Date / Time Penicillins (PCN) Allergy Swelling Verified 07/06/25 15:29 Family History Father Myocardial infarction Mother CVA (cerebral vascular accident) Brother CAD (coronary artery disease) Diabetes Surgical History Hx of cholecystectomy (01/13/17) H/O aortic valve replacement (02/24/16) H/O coronary artery bypass surgery (02/24/16) Social History household members: family and other details: Granddaughter. 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 Has been weak and has fallen which is suspected because of the bruising in his left upper extremity. No fever or chills. Sore throat. All review of systems were negative except as mentioned above in the history of present illness and the other review of systems. Vital Signs Vital Signs Vital Signs: 07/06/25 15:28 07/06/25 15:29 07/06/25 16:27 Temperature 36.8 C 36.8 C Temperature Source Oral Oral Pulse Rate 51 L 51 L 49 L Respiratory Rate 16 16 17 Respiratory Effort Respiratory Pattern Blood Pressure 120/68 120/68 134/68 H Blood Pressure Mean 85 85 90 Pulse Ox 100 100 100 Oxygen Delivery Method Nasal Cannula Nasal Cannula Room Air Oxygen Flow Rate (L/min) 5 5 07/06/25 16:36 07/06/25 16:39 07/06/25 16:42 Temperature Temperature Source Pulse Rate Respiratory Rate Respiratory Effort Short of Breath Respiratory Pattern Tachypnea Blood Pressure Blood Pressure Mean Pulse Ox 100 Oxygen Delivery Method Nasal Cannula Nasal Cannula Nasal Cannula Oxygen Flow Rate (L/min) 4 2.5 07/06/25 17:00 07/06/25 18:00 07/06/25 19:00 Temperature Temperature Source Pulse Rate 47 L 47 L 47 L Respiratory Rate 16 13 16 Respiratory Effort Respiratory Pattern Blood Pressure 129/66 H 115/74 135/64 H Blood Pressure Mean 87 88 85 Pulse Ox 100 98 100 Oxygen Delivery Method Oxygen Flow Rate (L/min) Weight Weight: 121.4 kg Body Mass Index (BMI) 44.5 Physical Exam Narrative Limited POCUS exam due to body habitus. Use curvilinear probe IVC was visualized and was dilated and noncollapsible with respirations. I could not get a good subxiphoid view of the heart. Using the linear probe, the lungs wereevaluated in the anterior and lateral hunter and no B-lines were noted. Const alert and no apparent distress Constitutional Narrative: Hard of hearing. No respiratory distress. No conversational dyspnea. HEENT normocephalic Eyes Eyes Narrative: No icterus. Slight proptosis. Neck Neck Narrative: Large neck girth Resp Resp Narrative: Coarse breath sounds bilaterally Cardio Cardio Narrative: Bradycardic. No murmurs gallops or rubs. GI GI Narrative: Obese but soft. Nontender nondistended. Extremity Extremity Narrative: Tight bilateral lower extremity edema with venous stasis changes to the distal lower extremities. Skin Skin Narrative: Venous stasis changes to the lower extremities. Bruising on left upper extremity. Neuro moves all extremities Sensorium / Orientation: awake and alert Psych affect normal Results Lab / Micro Data 07/06/25 16:18 07/06/25 16:18 Labs: Laboratory Results - last 24 hr 07/06/25 16:18: WBC 6.7, RBC 3.20 L, Hgb 10.4 L, Hct 32.4 L, MCV 101.3 H, MCH 32.5 H, MCHC 32.1, RDW Std Deviation 60.4 H, RDW Coeff of Yeny 16.7 H, Plt Count 117 L, MPV 11.7, Immature Gran % (Auto) 0.700, Neut % (Auto) 70.8 H, Lymph % (Auto) 16.9 L, [place] % (Auto) 9.3, Eos % (Auto) 1.9, Baso % (Auto) 0.4, Absolute Neuts (auto) 4.7, Absolute Lymphs (auto) 1.13, Nucleated RBC % 0.4, Sodium 137, Potassium 6.3 H*, Chloride 108, Carbon Dioxide 14.7 L, Anion Gap 15, BUN 76 H, Creatinine 3.01 H, Estim Creat Clear Calc 22.08 L, Est GFR (MDRD) Non-Af 20 L, BUN/Creatinine Ratio 25.3 H, Glucose 119 H, Calcium 9.4, Troponin T High Sens 104H*, [place] [address] H 07/06/25 17:42: POC Glucose 91 Micro: Microbiology 07/06/25 16:45 Mucosa - Nose SARS-CoV-2, Influenza & RSV (PCR) - Final Imaging Radiology Impression Chest X-Ray 07/06/25 16:45 IMPRESSION: CARDIOMEGALY. NO ACUTE FINDINGS. Reading Location: [id number] Assessment & Plan Assessment/Plan (1) HFrEF (heart failure with reduced ejection fraction): PLAN: Acute on chronic Looking at his weight looks like he is put on nearly 15 kg since May though this may not be accurate given the bed scale. Patient received 20 mg of IV furosemide in emergency room and will give an additional 20 to give a total of 40 today and then will continue with 40 IV twice daily Additional plans Daily weights, fluid restrict 1.5 L/day, repeat echocardiogram. Echocardiogram from October 10, 2024 showed EF 40% with pulmonary systolic pressure of 43 mmHg. Not a candidate for DIONNA inhibitor/angiotensin receptor josey given CKD (2) Bradycardia: PLAN: Looks like A-fib with heart rate in the 40s to 50s. He is not on any chronotropic medications such as beta-blockers norNondihydropyridine calcium channel blockers such as diltiazem (he does take amlodipine but this is a dihydropyridine calcium channel josey) Though from Dr. Shook's note from 06/21/25 it mentions containing metoprolol for rate control but is not on his medication list during this hospitalization nor was it on the office list at that time Will monitor for now and if continues to be ongoing may need to consult cardiology. (3) Elevated troponin I level: PLAN: Doubt non-STEMI this is likely due to demand ischemia from CHF but also skewed upwards given his CKD. No additional workup unless he has change in his clinical status. (4) Hyperkalemia: PLAN: Sample was hemolyzed which I brought the attention of the emergency room physician. Patient did receive treatment though however with dextrose and insulin, calcium gluconate. Recheck and hopefully the subsequent sample is not hemolyzed. Will be holding the oral potassium for now. PLAN: Plan Possible mild cognitive impairment/dementia: Granddaughter, whom he lives with, mentioned that he gets confused at night occasionally and worse when he comes int hospital. Unclear if he does have MCI or dementia but can be referred to geriatrics as outpatient have a formal testing. Debility: Patient has had some falls and some concerns for falls (bruising on left upper extremity). PT OT evaluate and treat. Case management to assist with disposition case heart level needs are necessary upon discharge. Chronic medical conditions * Diabetes mellitus type 2: Insulin-dependent. Patient takes NPH. Will change it over to glargine twice daily & scale insulin. Check an A1c. * Seizure disorder: Continue levetiracetam. * Hypertension: I am holding off on the patient's amlodipine due to the lower extremity edema. * Mood disorder: Continue olanzapine, sertraline. 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 * A-fib: Not on any chronotropic medications that I can see from his list. Continue with apixaban. * CAD: Status post CABG. Continue with aspirin VTE prophylaxis: Low risk as patient is already anticoagulated. CODE STATUS: Addressed with the patient and his daughter and verified that his previous CODE STATUS of DNR Comfort Care arrest no intubation is still in place which they confirmed he is. Charges/Coding Visit Charges Inpatient E&M: 81614 Init Hosp L3 07/06/251928 <Electronically signed by Mikey Macias DO> Cosigner Signature (if applicable): CC: Dr. Mikey Macias DO; Dr. Rios Downey DO~ Signed [facility] Work Phone: 1(607) 598-583708-09-2025 Radiology Diagnostic study [facility]07-24-2025 Progress note Author Christian Shook [facility] Note Date/Time June 20, 2025 3:43 pm [facility]alt [facility] [address] [place] [address] OFFICE VISIT Date of Service: 06/20/25 MR#: [id number] Acct: [id number] Name: JODIE CARDENAS Rep #: [id number] : 1940 Provider: Dr. Nasreen Shook MD Age/Sex: 85/M Location: [facility] Status: Signed HPI HPI History of Present [...] Source Monitor Intake Visit Reasons: 9 M FU Chemists Required: No Is patient in pain?: No Allergies Penicillins (PCN) Allergy (Verified 06/20/25 15:09) Swelling Medications ?Medication ?Instructions ?Recorded ?Confirmed ?Type aspirin 81 mg tablet,delayed 81 mg PO DAILY [facility] 07/11/16 06/20/25 History release multivitamin 1 ea PO DAILY [facility] 07/11/16 06/20/25 History insulin regular human [...] you fallen in the past year?: No [employer] [facility] [employer] Medical History Anemia Atherosclerosis of coronary artery bypass graft without angina pectoris 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 Chronic combined systolic [...] details: Granddaughter. 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 Smoking Status: Former smoker how long ago [...] by echocardiographic evaluation; and after discussing with accounts receivable accountant, the plan willbe to refer him to [...] Plan (1) 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: Status: Chronic Comment: [...] 4 Diagnoses 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 I25.10 H/O aortic valve replacement Z95.2 Essential (primary) hypertension I10 Pure hypercholesterolemia E78.00; E78.0 Hyperlipidemia type: pure hypercholesterolemia Paroxysmal atrial fibrillation I48.0 Coding Level of Care Code Off vis,est,level 4 Diagnoses 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 I25.10 H/O aortic [...] applicable) CC: Dr. Rios Downey DO ~ [facility] Work Phone: 1(842) 452-789007-05-2025 Discharge summary [facility] Medical Records Department [address] [place] [address] Emergency Department Summary 05/31/25 MR#: [id number] Acct: [id number] Name: JODIE CARDENAS Rep #:[id number] : 1940 85 From: Duc Vicente MD PCP: Dr. Rios Downey DO Status:REG [...] funny Location: Backseat of car going to [employer] Current Severity: Gone Maximum Severity: Severe Worsened [...] Prior similar symptoms: No Recent Illness/Hospitalization: No [employer] [facility] Medical History PAF (paroxysmal atrial fibrillation) AUTUMN treated with BiPAP Former smoker Chronic respiratory failure with hypoxia 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 Essential (primary) hypertension [...] details: Granddaughter. 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 [place]) Diagnostic Testing: Clinical Impression(s) from Imaging Studies Chest X-Ray 05/31/25 22:37 IMPRESSION: CARDIOMEGALY. NO ACUTE FINDINGS. Reading Location: [id number] EKG Initial EKG: Attestation: I personally reviewed and interpreted this EKG as follows: Interpretation: Atrial Fibrillation (Atrial fibrillation with a rate of 60. LA interval not applicable. QRS duration 58 ms. There is evidence of leftbundle branch block. QT duration is 484 ms. [place] is normal) Treatment and Re-Evaluation :: Patient [...] Care Provider] - 3-5 Days Print Language: Khmer Disposition Disposition: Home, Self Care What to do if you have Problems For any increased pain, shortness of breath, bleeding, nausea or vomiting, chestpain, or any unexpected problems, contact your Primary Care Provider. Call [facility] ([phone]) or report tothe closest Emergency Room. Call 911 if necessary. 06/01/2530 Cosigner Signature (if applicable): CC: Dr. Rios Downey DO ~ Signed [facility]07-04-2025 Radiology Diagnostic study note [facility] Imaging Services [address] [place] [address] Chest PA and Lateral MR#: [id number] Acct: [id number] Name: JODIE CARDENAS Rep #: [id number] : 1940 M 85 From: Vicky Avalos MD PCP: Dr. Rios Downey DO Status: REG ER Study:Chest PA and Lateral Date of Exam: 05/31/25 Exam# [id number] Ordering Dr: Cherie Vicente MD PROCEDURE: CHEST [...] IMPRESSION: CARDIOMEGALY. NO ACUTE FINDINGS. Reading Location: [id number] CC: Dr. Rios Downey DO; Dr. Duc Vicente MD ~ Blending Coordinator: Signed [facility]07-04-2025 Discharge summary Author Duc Vicente [facility] Note Date/Time June 01, 2025 12:31 am [facility] Medical Records Department [address] [place] [address] Emergency Department Summary 05/31/25 MR#: [id number] Acct: [id number] Name: JODIE CARDENAS Rep #:[id number] : 1940 85 From: Duc Vicente MD PCP: Dr. Rios Downey DO Status:REG [...] funny Location: Backseat of car going to [employer] Current Severity: Gone Maximum Severity: Severe Worsened [...] similar symptoms: No Recent Illness/Hospitalization: No [facility]SH [facility] Medical History PAF (paroxysmal atrial fibrillation) AUTUMN treated with BiPAP Former smoker Chronic respiratory failure with hypoxia 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 Essential (primary) hypertension [...] tablet 2.5 mg PO DAILY #90 tabs 02/ 28/25 Unknown Rx furosemide 40 mg tablet 40 [...] details: Granddaughter. 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 [place]) Diagnostic Testing: Clinical Impression(s) from Imaging Studies Chest X-Ray 05/31/25 22:37 IMPRESSION: CARDIOMEGALY. NO ACUTE FINDINGS. Reading Location: [id number] EKG Initial EKG: Attestation: I personally reviewed and interpreted this EKG as follows: Interpretation: Atrial Fibrillation (Atrial fibrillation with a rate of 60. LA interval not applicable. QRS duration 58 ms. There is evidence of leftbundle branch block. QT duration is 484 ms. [place] is normal) Treatment and Re-Evaluation :: Patient [...] Care Provider] - 3-5 Days Print Language: Khmer Disposition Disposition: Home, Self Care What to do if you have Problems For any increased pain, shortness of breath, bleeding, nausea or vomiting, chestpain, or any unexpected problems, contact your Primary Care Provider. Call [facility] ([phone]) or report to the closest Emergency Room. Call 911 if necessary. 06/01/25 0031 <Electronically signed by Duc Vicente MD> Cosigner Signature (if applicable): CC: Dr. 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 March 14, 2025 2:55pm Chronic respiratory failure chronic March 14, 2025 2:55pm Obstructive sleep apnea chronic [facility] 2024 2:55pm 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 June 13, 2025 3:00pm Chronic respiratory failure chronic June 13, 2025 3:00pm Obstructive sleep apnea chronic J kim2024 3:00pm [facility] Work Phone: 1(885) 964-264804-17-2025 Evaluation note* Diagnosis Onset Date Resolution Status Admit Date 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 March 14, 2025 2:55pm Chronic respiratory failure chronic March 14, 2025 2:55pm Obstructive sleep apnea chronic [facility] 2024 2:55pm 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 June 13, 2025 3:00pm Chronic respiratory failure chronic June 13, 2025 3:00pm Obstructive sleep apnea chronic J kim 2024 3:00pm 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 chronic May 3:05pm Essential (primary) hypertension chronic June 20, 2025 3:05pm H/O aortic valve replacement February 24, 2016 c hronic June 20, 2025 3:05pm Hyperlipemia chronic June 20, 2 025 3:05pm Paroxysmal atrial fibrillation chronic June 20, 2025 3:05pm Elevated troponin I level acute July 06, 2025 7:03pm HFrEF (heart failure with reduced ejection fraction) acute Augus t 2024 7:03pm Hyperkalemia acute July 06, 2025 7:03pm Bradycardia inactive July 06, 2 025 7:03pm [facility] Work Phone: 1(521) 161-741204-17-2025 Evaluation note* Diagnosis Onset Date Resolution Status [...] 2025 3:00pm Obstructive sleep apnea chronic J kim 2024 3:00pm 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 chronic May 3:05pm Essential (primary) hypertension chronic June 20, 2025 3:05pm H/O aortic valve replacement February 24, 2016 c hronic June 20, 2025 3:05pm Hyperlipemia chronic June 20, 2 025 3:05pm Paroxysmal atrial fibrillation chronic June 20, 2025 3:05pm Elevated troponin I level acute July 06, 2025 7:03pm HFrEF (heart failure with reduced ejection fraction) acute t 2024 7:03pm Hyperkalemia acute July 06, 2025 7:03pm Acute exacerbation of CHF (congestive heart failure) chronic 2024 7:03pm Bradycardia inactive July 06, 2 025 7:03pm [facility] Work Phone: 1(766) 640-306210-26-2023 Discharge summary Author Eladio Lucas [facility] September 22, 2023 2:22pm Note Date/Time September 22, 2023 2 :22pm [facility] Medical Records Department [address] [place] [address] Discharge Summary 09/22/23 1416 MR#: [id number] Acct: [id number] Name: JODIE CARDENAS Rep #:[id number] : 1940 83 From: Eladio ramirez MD PCP: Dr. Rios Downey, DO Status:ADM IN Location: [place] [address] Providers Date of Admission: 09/16/23 Primary Care Physician: Dr. Rios Downey, DO Consultations 10/24/23 11:34 Consult: Quarrying Manager / Pulmonary Medicine Routine Consulting Provider: [facility] Reason for Consult: Continued elevated O2 requirement [...] unit/mL injection solution 12 unit subcut BID [id number]/27/16 cholecalciferol (vitamin D3) 25 mcg (1,000 unit) [...] dementia who now re-presents to the [facility] ED on 09/16/23 with history of discharge from SNF today specifically [facility] with reportedly transition to home and [...] want to send him back to a [facility] as she thinks that the fci made his condition worse. I discussed with [...] (Auto) 68.7, Lymph % (Auto) 18.8 L, [place] % (Auto) 8.1, Eos % (Auto) 3.7, [...] Peters; Otto Jerry; Tal Ashraf; Gosia Saenz BRIM PLATER Instructions Additional Instructions / Restrictions: Follow-up your [...] Health Service Charges/Coding Visit Charges Inpatient E&M: 36850 Disch Hosp >30min Procedures Hospitalists Procedures: 53058 Advncd Care Plan 30 Min 09/22/23 1422 <Electronically signed by Eladio Lucas MD> Cosigner Signature (if applicable): CC: Dr. Eladio Lucas MD; Dr. Rios Downey DO~ Signed [facility] Work Phone: 1(780) 521-605110-26-2023 Progress note Author Yaakov Love [facility] September 22, 2023 1:57pm Note Date/Time September 22, 2023 9 :27am [facility] Medical Records Department [address] [place] [address] Progress Note - Quarrying Manager 09/22/2324 MR#: [id number] Acct: [id number] Name: JODIE CARDENAS Rep #:[id number] : 1940 83 From: Yaakov Love MD PCP: Dr. Rios Downey DO Status:ADM IN Location: [place] [address] Assessment & Plan Assessment/Plan (1) Acute exacerbation [...] (Auto) 68.7, Lymph % (Auto) 18.8 L, [place] % (Auto) 8.1, Eos % (Auto) 3.7, [...] grossly normal Charges/Coding Visit Charges Inpatient E&M: 66740 Subs Hosp L2 09/22/23 1357 <Electronically signed by Yaakov Love MD> Cosigner Signature (if applicable): CC: ~ Signed [facility] Work Phone: 1(233) 650-237310-26-2023 Discharge summary Author Eladio Lucas [facility] September 22, 2023 1:18pm Note Date/Time September 22, 2023 1 :12pm [facility] Medical Records Department [address] [place] [address] [place] [address] Instructions for Home/Discharge Instructions 09/22/23 1311 MR#: [id number] Acct: [id number] Name: JODIE CARDENAS Rep #:[id number] : 1940 83 From: Eladio ramirez MD [...] Peters; Otto Jerry; Tal Ashraf; Gosia Saenz BRIM PLATER Instructions Additional Instructions / Restrictions: Follow-up your [...] can be placed): Home Health Service 09/22/23 1775<Electronically signed by Eladio Lucas MD>Eladio Lucas MD CC: BRIM PLATERGianfranco Saenz; Dr. Aleksander Hilliard DO; Dr. Patricia Alcantara MD; Dr. Yaakov Love MD; Dr. Josh Cline DO; Dr. Michelle Peters MD; Dr. Otto Jerry MD; Dr. Woody Brunson DO; Dr. Rios Downey DO; Dr. Tal Ashraf MD ~ Signed [facility] Work Phone: 1(435) 671-705110-25-2023 Progress note Author Yaakov [facility] September 21, 2023 1:05pm Note Date/Time September 21, 2023 8 :03am [facility] Medical Records Department [address] [place] [address] Progress Note - Quarrying Manager 09/21/23 08 MR#: [id number] Acct: [id number] Name: JODIE CARDENAS Rep #:[id number] : 1940 83 From: Yaakov Love MD PCP: Dr. Rios Downey DO Status:ADM IN Location: [place] [address] Assessment & Plan Assessment/Plan (1) Acute exacerbation [...] grossly normal Charges/Coding Visit Charges Inpatient E&M: 62714 Subs Hosp L2 09/21/23 1305 <Electronically signed by Yaakov Love MD> Cosigner Signature (if applicable): CC: ~ Signed [facility] Work Phone: 1(967) 310-619010-25-2023 Progress note Author Eladio Lucas [facility] September 21, 2023 11:40am Note Date/Time September 21, 2023 1 1:34am [facility] Medical Records Department [address] [place] [address] Progress Note - Hospitalist 09/21/23 1131 MR#: [id number] Acct: [id number] Name: JODIE CARDENAS Rep #:[id number] : 1940 83 From: Eladio ramirez MD PCP: Dr. Rios Downey, DO Status:ADM IN Location: [place] [id number] Subjective Subjective Doing well, no issues overnight [...] DVT: Eliquis Charges/Coding Visit Charges Inpatient E&M: 01424 Subs Hosp L2 09/21/23 1140 <Electronically signed by Eladio Lucas MD> Cosigner Signature (if applicable): CC: ~ Signed [facility] Work Phone: 1([phone]) 750-841610-24-2023 Consult note Author Yaakov Love [facility] September 20, 2023 3:26pm Note Date/Time September 20, 2023 3 :26pm [facility] Medical Records Department [address] [place] [address] Consultation - Quarrying Manager 09/20/23 1512 MR#: [id number] Acct: [id number] Name: JODIE CARDENAS Rep #:[id number] : 1940 83 From: Yaakov Love MD PCP: Dr. Rios Downey, DO Status:ADM IN Location: [place] [address] Assessment & Plan Assessment/Plan (1) Acute exacerbation [...] pulmonary hypertension. Patient also noted to be ysvrrfomwajig87 pounds above dry weight. Agree with diuretics [...] medical history listed below, who presented to [facility] on 09/16/2023 secondary to a hypoxic episode. Patient reportedly was admitted at [facility] previously and transferred to a [facility] center secondary to rehab. Patient reportedly was [...] be 22. Patient's BNP at that time tpo108 with a troponin of 41. Chest x-ray [...] psychiatric and hematologic system unless stated above. [facility] Medical History Anemia Atherosclerosis of coronary artery bypass graft without angina pectoris 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 Chronic combined systolic [...] unit/mL injection solution 12 unit subcut BID NKTXTHUS85/27/16 [History Last Taken 07/02/23] cholecalciferol (vitamin D3) [...] 179 H Charges/Coding Visit Charges Inpatient E&M: 36328 Init Hosp L3 09/20/23 1526 <Electronically signed by Yaakov Love MD> Cosigner Signature (if applicable): CC: BRIM PLATER-C Gosia Saenz; Dr. Aleksander Hilliard DO; Dr. Patricia Alcantara MD; Dr. Yaakov Love MD; Dr. Josh Cline DO; Dr. Michelle Peters MD; Dr. Otto Jerry MD; Dr. Woody Brunson DO; Dr. Rios Downey DO; Dr. Tal Ashraf MD~ Signed [facility] Work Phone: [phone]) [phone] Progress note Author Eladio Lucas [facility] September 20, 2023 1:43pm Note Date/Time September 20, 2023 1 :43pm [facility] Medical Records Department [address] [place] [address] Progress Note - Hospitalist 09/20/23 1340 MR#: [id number] Acct: [id number] Name: JODIE CARDENAS Rep #:[id number] : 1940 83 From: Eladio ramirez MD PCP: Dr. Rios Downey DO Status:ADM IN Location: [place] [address]- Subjective Subjective Doing well, no issues overnight. [...] DVT: Eliquis Charges/Coding Visit Charges Inpatient E&M: 35272 Subs Hosp L2 09/20/23 1343 <Electronically signed by Eladio Lucas MD> Cosigner Signature (if applicable): CC: ~ Signed [facility] Work Phone: [phone]) 320-168210-23-2023 Progress note Author Eladio Lucas [facility] September 19, 2023 1:41pm Note Date/Time September 19, 2023 1 :34pm [facility] Medical Records Department [address] [place] [address] Progress Note - Hospitalist 09/19/23 1320 MR#: [id number] Acct: [id number] Name: JODIE CARDENAS Rep #:[id number] : 1940 83 From: Eladio ramirez MD PCP: Dr. Rios Downey, DO Status:ADM IN Location: [place] [address] Subjective Subjective Doing well, feels a bit [...] DVT: Eliquis Charges/Coding Visit Charges Inpatient E&M: 64026 Subs Hosp L2 09/19/23 1341 <Electronically signed by Eladio Lucas MD> Cosigner Signature (if applicable): CC: ~ Signed [facility] Work Phone: 1(974) 532-413110-22-2023 Progress note Author Aleksander Hilliard [facility] September 18, 2023 2:18pm Note Date/Time September 18, 2023 2 :18pm [facility] Medical Records Department [address] [place] [address] Progress Note - Hospitalist 09/18/23 1400 MR#: [id number] Acct: [id number] Name: JODIE CARDENAS Rep #:[id number] : 1940 83 From: Aleksander camargo DO PCP: Dr. Rios Downey, DO Status:ADM IN Location: [place] [address] Reason for Visit Reason for Visit: Diagnoses [...] for CVA rule out who presented to [facility] ED on 09/16/2023 with worsening shortness [...] 35 minutes. Charges/Coding Visit Charges Inpatient E&M: 86403 Subs Hosp L2 09/18/23 1418 <Electronically signed by Aleksander Hilliard DO> Cosigner Signature (if applicable): CC: ~ Signed [facility] Work Phone: 1(606) 126-524510-21-2023 Progress note Author Aleksander [facility] September 17, 2023 3:42pm Note Date/Time September 17, 2023 3 :38pm [facility] Medical Records Department [address] [place] [address] Progress Note - Hospitalist 09/17/23 1527 MR#: [id number] Acct: [id number] Name: JODIE CARDENAS Rep #:[id number] : 1940 83 From: Aleksander camargo DO PCP: Dr. Rios Downey, Status:ADM IN Location: [place] [address] Reason for Visit Reason for Visit: Diagnoses [...] 13:44 09/17/23 13:44 09/17/23 13:44 FiO2 40 10/21/23 05:45 Oxygen Flow Rate (L/min) 4 Oxygen [...] % (Auto) 68.1, Lymph % (Auto) 19.0, [place] % (Auto) 8.1, Eos % (Auto) 3.7, [...] 70.5 H, Lymph % (Auto) 16.9 L, [place] % (Auto) 7.1, Eos % (Auto) 4.6, [...] for CVA rule out who presented to [facility] ED on 09/16/2023 with worsening shortness [...] 35 minutes. Charges/Coding Visit Charges Inpatient E&M: 22313 Subs Hosp L2 09/17/23 1545 <Electronically signed by Aleksander Hilliard DO> Cosigner Signature (if applicable): CC: ~ Signed [facility] Work Phone: 1(433) 124-558710-20-2023 Discharge summary Author Cesar Medina [facility] September 16, 2023 6:42pm Note Date/Time September 16, 2023 6 :42pm [facility] Medical Records Department [address] [place] [address] Emergency Department Summary 09/16/23 MR#: [id number] Acct: [id number] Name: JODIE CARDENAS Rep #:[id number] : 1940 83 From: Cesar Medina DO PCP: Dr. Rios Downey, Status:REG ER Location: ED HPI History of Present Illness Chief Complaint: Shortness of Breath Narrative Narrative: 83-year-old male with history of CHF, A-fib, CKD, CAD, diabetes, hypertension, sleep apnea presenting with hypoxic episode. Patient was recently inpatient at [facility] for what sounds like about a month. He was discharged to a [facility] facility where he just left today. His [...] state that when he was at the [facility] he was huffing and puffing when he was walking but not like today. He states that they change his Lasix to torsemide while he was at the [facility] facility he is not sure why they did this. They also put him on potassium. [facility] Medical History Anemia Atherosclerosis of coronary artery bypass graft without angina pectoris 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 Chronic combined systolic [...] unit/mL injection solution 12 unit subcut BID AXVFXZIE75/27/16 [History Last Taken 07/02/23] cholecalciferol (vitamin D3) [...] % (Auto) 68.1 Lymph % (Auto) 19.0 [place] % (Auto) 8.1 Eos % (Auto) 3.7 [...] 17:04 EDT Reading Location ID and State: [facility] / [place] Tel , Service support , Discharge Plan [...] your Primary Care Provider. Call [facility] ([phone]) or report to the closest Emergency Room. Call 911 if necessary. 09/16/23 1842 <Electronically signed by Cesar Medina DO> Cosigner Signature (if applicable): CC: Dr. Rios Downey DO ~ Signed [facility] Work Phone: 1(234) 234-212310-20-2023 History and physical note Author Patricia Alcantara [facility] September 16, 2023 6:41pm Note Date/Time September 16, 2023 6 :17pm [facility] Medical Records Department [address] [facility] [place] [address] H&P Exam - Hospitalist 09/16/23 180 MR#: [id number] Acct: [id number] Name: JODIE CARDENAS Rep #:[id number] : 1940 83 From: Patricia Alcantara MD [...] dementia who now re-presents to the [facility] ED on 09/16/23 with history of discharge from SNF today specifically [facility] with reportedly transition to home and [...] atrial fibrillation without acute evidence of ischemia. [facility] Medical History Anemia Atherosclerosis of coronary artery bypass graft without angina pectoris 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 Chronic combined systolic [...] unit/mL injection solution 12 unit subcut BID PIAMAWOS11/27/16 [History Last Taken 07/02/23] cholecalciferol (vitamin D3) [...] % (Auto) 68.1, Lymph % (Auto) 19.0, Panola % (Auto) 8.1, Eos % (Auto) 3.7, [...] dementia who now re-presents to the [facility] ED on 09/16/23 with history of discharge from SNF today specifically [facility] with reportedly transition to home and [...] not repeat. Will place neck Dionna wraps. PT/OT/housing case manager consultation for discharge planning. To be cautious [...] intubation status. Charges/Coding Visit Charges Inpatient E&M: 67143 Init Hosp L3 09/16/23 184 <Electronically signed by Patricia Alcantara MD> Cosigner Signature (if applicable): CC: Dr. Patricia Alcantara MD; Dr. Rios Downey, DO~ Signed [facility] Work Phone: 1([phone]) 403-294110-20-2023 History and physical note Author [facility] September 16, 2023 6:41pm Note Date/Time September 16, 2023 6 :17pm [facility] Medical Records Department [address] [place] [address] H&P Exam - Hospitalist 09/16/23 1809 MR#: [id number] Acct: [id number] Name: JODIE CARDENAS Rep #:[id number] : 1940 83 From: Patricia Alcantara MD PCP: Dr. Rios Downey, Status:REG ER Location: ED HPI - General [...] dementia who now re-presents to the [facility] ED on 09/16/23 with history [...] atrial fibrillation without acute evidence of ischemia. [facility] Medical History Anemia Atherosclerosis of coronary artery bypass graft without angina pectoris 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 Chronic combined systolic [...] unit/mL injection solution 12 unit subcut BID [id number]/27/16 [History Last Taken 07/02/23] cholecalciferol (vitamin D3) [...] % (Auto) 68.1, Lymph % (Auto) 19.0, Panola % (Auto) 8.1, Eos % (Auto) 3.7, [...] dementia who now re-presents to the [facility] ED on 09/16/23 with history of discharge from SNF today specifically [facility] with reportedly transition to home and [...] not repeat. Will place neck Dionna wraps. PT/OT/housing case manager consultation for discharge planning. To be cautious [...] intubation status. Charges/Coding Visit Charges Inpatient E&M: 54199 Init Hosp L3 09/16/23 1841 <Electronically signed by Patricia Alcantara MD> Cosigner Signature (if applicable): CC: Dr. Patricia Alcantara MD; Dr. Rios Downey, DO~ Signed [facility] Work Phone: [phone] 865-162910-20-2023 Discharge summary Author Cesar Adam [facility] September 16, 2023 6:42pm Note Date/Time September 16, 2023 6 :42pm [facility] Medical Records Department [address] [place] [address] Emergency Department Summary 09/16/23 MR#: [id number] Acct: [id number] Name: JODIE CARDENAS Rep #:[id number] : 1940 83 From: Cesar Medina DO PCP: Dr. Rios Downey, DO Status:REG ER Location: ED HPI History of Present Illness Chief Complaint: Shortness of Breath Narrative Narrative: 83-year-old male with history of CHF, A-fib, CKD, CAD, diabetes, hypertension, sleep apnea presenting with hypoxic episode. Patient was recently inpatient at [facility] for what sounds like about a month. He was discharged to a [facility] facility where he just left today. His [...] state that [facility] he was huffing and puffing when he was walking but not like today. He states that they change his Lasix to torsemide while he was at the [facility] facility he is not sure why they did this. They also put him on potassium. [facility] Medical History Anemia Atherosclerosis of coronary artery bypass graft without angina pectoris 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 Chronic combined systolic [...] unit/mL injection solution 12 unit subcut BID XYVOYXMS77/27/16 [History Last Taken 07/02/23] cholecalciferol (vitamin D3) [...] Labs: Laboratory Results - last 24 hr 10/20/23 16:51 WBC 7.1 RBC 3.16 L Hgb 10.1 L Hct 32.2 L MCV 101.9 H MCH 32.0 MCHC 31.4 L RDW Std Deviation 60.7 H RDW Coeff of Yeny 16.4 H Plt Count 130 L MPV 11.2 Immature Gran % (Auto) 0.700 Neut % (Auto) 68.1 Lymph % (Auto) 19.0 Panola % (Auto) 8.1 Eos % (Auto) 3.7 [...] 17:04 EDT Reading Location ID and State: [address] [place] [address] Tel , Service support , Discharge Plan [...] your Primary Care Provider. Call [facility] ([phone]) or report to the closest Emergency Room. Call 911 if necessary. 09/16/231841 <Electronically signed by Cesar Medina DO> Cosigner Signature (if applicable): CC: Dr. Rios Downey DO ~ Signed [facility] Work Phone: [phone]) 757-101809-25-2023 Discharge summary Author Mikey Macias [facility] August 22, 2023 12:17pm Note Date/Time August 22, 2023 12:17pm [facility] Medical Records Department [address] [place] [address] Discharge Summary 08/22/23 1216 MR#: [id number] Acct: [id number] Name: JODIE CARDENAS Rep #:[id number] : 1940 83 From: Mikey Macias DO PCP: Dr. Rios Downey DO Status:ADM IN Location: [place] [id number] 1 Providers Date of Admission: 08/18/23 Primary [...] malaise Plan: Patient to go back to [facility]. Plan Chronic conditions * Seizure disorder?Patient [...] unit/mL injection solution 25 unit subcut BID [id number]/27/16 cholecalciferol (vitamin D3) 25 mcg (1,000 unit) [...] 75.8 H, Lymph % (Auto) 16.5 L, Panola % (Auto) 5.6, Eos % (Auto) 1.4, [...] in before D/C Order can be placed): [facility] Charges/Coding Visit Charges Inpatient E&M: 76763 Disch Hosp 08/22/23 1217 <Electronically signed by Mikey Macias DO> Cosigner Signature (if applicable): CC: Dr. Mikey Macias DO; Dr. Rios Downey DO~ Signed [facility] Work Phone: 1([phone]) 179-455309-25-2023 Discharge summary Author Mikey Macias [facility] August 22, 2023 12:16pm Note Date/Time August 22, 2023 12:12pm [facility] Medical Records Department [address] [place] [id number] Transfer to [facility] MR#: [id number] Acct: [id number] Name: JODIE CARDENAS Rep #:[id number] : 1940 83 From: Mikey Macias DO PCP: Dr. Rios Downey DO Status:ADM IN Certification of patient admission REQUIRED AT TIME OF ADMISSION. I CERTIFY THAT POST-HOSPITAL ECF SERVICES ARE REQUIRED TO BE GIVEN ON AN IN-PATIENT BASIS BECAUSE OF THE ABOVE NAMED PATIENT'S NEED FOR INTERMEDIATE CARE ON A CONTINUING BASIS FOR THE CONDITION(S) FOR WHICH HE/SHE WAS RECEIVING IN-PATIENT HOSPITAL SERVICES PRIOR TO HIS/HER [facility] 08/22/23 1216<Electronically signed by Mikey Macias DO> Diet Diet Order/Speech Therapy: 08/19/23 13:25 ADA [Diet: Cardiac: Calorie-Controlled] Food consistency:: Pureed Liquid Consistency:: [place]/Mildly Thick Is pt able to select menu?: [...] malaise Plan: Patient to go back to [facility]. Plan Chronic conditions * Seizure disorder?Patient [...] to liberal CHO Control 1999 jade/ No Bobby garcia As medically able, rec 4 oz glucerna [...] in before D/C Order can be placed): [facility] 08/22/23 1216 <Electronically signed by Mikey Jopperi DO> Cosigner Signature (if applicable): CC: Dr. Patricia Alcantara MD; Dr. James Camarillo MD; Dr. Rios Downey DO ~ [facility] Work Phone: [phone] Progress note Author Mikey Macias [facility] August 22, 2023 12:11pm Note Date/Time August 22, 2023 10:00am [facility] Medical Records Department [address] [place] [address] Progress Note - Hospitalist 08/22/23 0956 MR#: [id number] Acct: [id number] Name: JODIE CARDENAS Rep #:[id number] : 1940 83 From: Mikey Macias DO PCP: Dr. Rios Downey DO Status:ADM IN Location: [place] [address] Reason for Visit Reason for Visit: Diagnoses [...] 75.8 H, Lymph % (Auto) 16.5 L, Panola % (Auto) 5.6, Eos % (Auto) 1.4, [...] Debility: PLAN: Patient to go back to [facility]. PLAN: Plan Chronic conditions * Seizure [...] Cosigner Signature (if applicable): CC: ~ Signed [facility] Work Phone: 1([phone]) 890-260509-24-2023 Progress note Author James Camarillo [facility] August 21, 2023 11:49am Note Date/Time August 21, 2023 8:45am [facility] Medical Records Department [address] [place] [address] Progress Note - Hospitalist 08/21/23 0844 MR#: [id number] Acct: [id number] Name: JODIE CARDENAS Rep #:[id number] : 1940 83 From: James Camarillo MD PCP: Dr. Rios Downey, Status:ADM IN Location: [place] [address] Reason for Visit Reason for Visit: Diagnoses Disorientation, unspecified (08/18/23) Subjective Subjective Patient seen remains stable with no change in condition plan is for patient to be transferred to [facility] facility pending insurance approval/precertification Objective Data Objective [...] 74.3 H, Lymph % (Auto) 17.4 L, Panola % (Auto) 6.0, Eos % (Auto) 1.4, [...] Requested for PT OT eval and social science manager to assist with discharge planning ? 08/20/2023; awaiting insurance approval prior to transfer to [facility] facility ? 08/21/2023; Patient seen remains stable with no change in condition plan is forpatient to be transferred to [facility] facility pending insurance approval/precertification 3. Seizure disorder [...] documentation, 35minutes Charges/Coding Visit Charges Inpatient E&M: 00680 Subs Hosp L2 08/21/23 1149 <Electronically signed by James Camarillo MD> Cosigner Signature (if applicable): CC: ~ Signed [facility] Work Phone: 1([phone]) 751-672109-23-2023 Progress note Author James Camarillo [facility] August 20, 2023 11:15am Note Date/Time August 20, 2023 8:35am [facility] Medical Records Department [address] [facility] [place] [address] Progress Note - Hospitalist 08/20/23834 MR#: [id number] Acct: [id number] Name: JODIE CARDENAS Rep #:[id number] : 1940 83 From: James Camarillo MD PCP: Dr. Rios Downey, DO Status:ADM IN Location: [place] [address] Reason for Visit Reason for Visit: Diagnoses Disorientation, unspecified (08/18/23) Subjective Subjective Patient seen appears to be back [facility] Objective Data Objective [...] Requested for PT OT eval and social science manager to assist with discharge planning ? 08/20/2023; awaiting insurance approval prior to transfer to [facility] facility 3. Seizure disorder ?Patient is on [...] documentation, 35minutes Charges/Coding Visit Charges Inpatient E&M: 56157 Subs Hosp L2 08/20/23 1115 <Electronically signed by James Camarillo MD> Cosigner Signature (if applicable): CC: ~ Signed [facility] Work Phone: 1(998) 598-400109-22-2023 Progress note Author James Camarillo [facility] August 19, 2023 12:57pm Note Date/Time August 19, 2023 9:42am [facility] Medical Records Department [address] [facility] [place] [address] Progress Note - Hospitalist 08/19/23940 MR#: [id number] Acct: [id number] Name: JODIE CARDENAS Rep #:[id number] : 1940 83 From: James Camarillo MD PCP: Dr. Rios Downey, DO Status:ADM IN Location: [place] [address] Reason for Visit Reason for Visit: Diagnoses [...] 73.4 H, Lymph % (Auto) 17.6 L, Pan[place] % (Auto) 6.4, Eos % (Auto) 1.8, [...] % (Auto) 67.7, Lymph % (Auto) 22.6, Pan[place] % (Auto) 6.6, Eos % (Auto) 2.4, [...] Requested for PT OT eval and social science manager to assist with discharge planning 3. Seizure [...] documentation, 55minutes Charges/Coding Visit Charges Inpatient E&M: 09615 Subs Hosp L3 08/19/23 1257 <Electronically signed by James Camarillo MD> Cosigner Signature (if applicable): CC: ~ Signed [facility] Work Phone: [phone]) 314-584909-21-2023 History and physical note Author Patricia Alcantara [facility] August 18, 2023 9:21pm Note Date/Time August 18, 2023 2:36pm [facility] Medical Records Department [address] [place] [address] H&P Exam - Hospitalist 08/18/23 1435 MR#: [id number] Acct: [id number] Name: JODIE CARDENAS Rep #:[id number] : 1940 83 From: Patricia Alcantara MD PCP: Dr. Rios Downey, DO Status:ADM IN Location: [address] HPI - General General Date of [...] following who now represents to the [facility] ED on 08/18/23 with history [...] the ED patient administered maintenance IV fluids. [facility] Medical History Acute exacerbation of CHF (congestive heart failure) Acute on chronic diastolic (congestive) heart failure Acute respiratory failure with hypoxia Anemia Atherosclerosis of coronary artery bypass graft without angina pectoris 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 Atrial fibrillation with [...] unit/mL injection solution 25 unit subcut BID [id number]/27/16 [History Last Taken 07/02/23] cholecalciferol (vitamin D3) [...] unable to have patient perform finger-nose or zoqi-mc-gtee, equivocal Babinski, patient is definitely having interactive [...] 73.4 H, Lymph % (Auto) 17.6 L, Panola % (Auto) 6.4, Eos % (Auto) 1.8, [...] following who now represents to the [facility] ED on 08/18/23 with history [...] concern for oral intake will transition to LA ASA, holding oral regimen. Maintain on fall [...] intubation status. Charges/Coding Visit Charges Inpatient E&M: 80506 Init Hosp L3 08/18/232120 <Electronically signed by Patricia Alcantara MD> Cosigner Signature (if applicable): CC: Dr. Patricia Alcantara MD; Dr. Rios Downey, DO~ Signed [facility] Work Phone: [phone]) 530-385609-21-2023 Discharge summary Author Farhan Cammie [facility] August 18, 2023 6:32pm Note Date/Time August 18, 2023 11:20am [facility] Medical Records Department [address] [place] [address] Emergency Department Summary 08/18/23 MR#: [id number] Acct: [id number] Name: JODIE CARDENAS Rep #:[id number] : 1940 83 From: Farhan Encinas PCP: Dr. Rios Downey, DO Status:ADM IN Location: [address] History of Present Illness Chief Complaint: Stroke Alert [facility] Medical History (Updated 08/18/23 @ 17:56 by Audra Wilhelm) Acute exacerbation of CHF (congestive heart failure) Acute on chronic diastolic (congestive) heart failure Acute respiratory failure with hypoxia Anemia Atherosclerosis of coronary artery bypass graft without angina pectoris 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 Atrial fibrillation with [...] unit/mL injection solution 25 unit subcut BID [id number]/27/16 [History Last Taken 07/02/23] cholecalciferol (vitamin D3) [...] 73.4 H Lymph % (Auto) 17.6 L Pan[place] % (Auto) 6.4 Eos % (Auto) 1.8 [...] Back by Mahendra Canada MD to Dr Camime DO, and understanding confirmed on 08/18/2023 11:39:12 (ET). Electronically Signed: Mahendra Canada MD at 11:38 EDT , Chest X-Ray 08/18/23 12:25 IMPRESSION: Moderate cardiomegaly. Findings suggestive of a mild degree of increased linear markings at the left lung base with blunting of the left costophrenic angle. Electronically Signed: Mahendra Canada MD at 12:55 EDT , Discharge Plan Disposition Disposition: Acute Care Hospital [facility] Discharge Date/Time: 08/18/23 17:38 What to do if you have Problems For any increased pain, shortness of breath, bleeding, nausea or vomiting, chest pain, or any unexpected problems, contact your Primary Care Provider. Call [facility] ([phone]) or report to the closest Emergency Room. Call 911 if necessary. 08/18/23 1832 <Electronically signed by Farhan Bonds DO> Cosigner Signature (if applicable): CC: Dr. Rios Downey DO ~ Signed [facility] Work Phone: [phone]) 692-746309-16-2023 Progress note Author Carrie Bonner [facility] August 13, 2023 10:00am Note Date/Time August 08, 2023 11:01am [facility] Medical Records Department [address] [place] [address] Progress Note - Nephrology 08/08/23 1059 MR#: [id number] Acct: [id number] Name: JODIE CARDENAS Rep #:[id number] : 1940 83 From: Saumya andrews [employer]C PCP: Dr. Rios Downey, Status:ADM IN Location: [place] [address] Subjective Subjective Resting in bed. No complaints. [...] 07/27/23 15:44 BRANDEN (Rec: 07/27/23 15:44 BRANDEN [id number]) Nutrition Malnutrition Evidence of Malnutrition Exists Yes [...] Cardiac, 2000 jade Controlled - consistency per STAVE LOG RIPSAW OPERATOR Will monitor for changes in res nutritional [...] will need hospital follow-up made with his catechist, Dr. Guille wyatt 1-2 months. 08/08/23 1101 <Electronically signed by Saumya SOSA> Cosigner Signature (if applicable): 08/13/23 1000 <Electronically signed by Carrie Bonner MD> CC: ~ Signed [facility] Work Phone: 1([phone]) 616-273509-05-2023 Progress note Author Jeremy Elpidio [facility] August 02, 2023 8:05am Note Date/Time August 02, 2023 8:05am [facility] Medical Records Department [address] [place] [address] Progress Note - TCU 08/02/23 0759 MR#: [id number] Acct: [id number] Name: JODIE CARDENAS Rep #:[id number] : 1940 83 From: Jeremy Magallanes MD PCP: Dr. Rios Downey, DO Status:ADM IN Location: [place] [address] Subjective Subjective Resident seen, examined. 1 week [...] Document 07/27/23 15:44 BRANDEN (Rec: 07/27/23 15:44 SLA [id number]) Nutrition Malnutrition Evidence of Malnutrition Exists Yes [...] Cardiac, 2000 jade Controlled - consistency per STAVE LOG RIPSAW OPERATOR Will monitor for changes in res nutritional [...] 25mg daily, Zyprexa 2.5mg qhs, stable chronic skilled nursing use, GDR not recommended. * Vitamin D [...] Cosigner Signature (if applicable): CC: ~ Signed [facility] Work Phone: [phone]) 737-862708-28-2023 Progress note Author Clay Berry [facility] July 25, 2023 11:36am Note Date/Time July 25, 2023 10 :25am [facility] Medical Records Department [address] [place] [address] Progress Note - Nephrology 07/25/23 1021 MR#: [id number] Acct: [id number] Name: JODIE CARDENAS Rep #:[id number] : 1940 83 From: Saumya SOSA PCP: Dr. Rios Downey, DO Status:ADM IN Location: [place] [address] Subjective Subjective Following for CKD Sitting in [...] (Auto) 69.0, Lymph % (Auto) 18.2 L, [place] % (Auto) 7.8, Eos % (Auto) 4.1, [...] will need hospital follow-up made with his catechist, [facility] 1-2 months. 07/25/23 1025 <Electronically signed by Saumya SOSA> Cosigner Signature (if applicable): 07/25/23 1136 <Electronically signed by Clay Berry MD> CC: ~ Signed [facility] Work Phone: [phone]) 702-390608-26-2023 Consult note Author Carrie Bonner [facility] July 23, 2023 10:57am Note Date/Time July 11, 2023 11 :26am [facility] Medical Records Department [address] [place] [address] Consultation - Nephrology 07/11/23 1116 MR#: [id number] Acct: [id number] Name: JODIE CARDENAS Rep #:[id number] : 1940 83 From: Saumya POLKC PCP: Dr. Rios Downey, DO Status:ADM IN Location: [place] [address] Assessment & Plan Assessment/Plan (1) CKD (chronic [...] cannot recall when last seen by his catechist. In reviewing past serum creatinine trends, baseline creatinine ranging around 2.4 to 2.7 mg/dL. Patient denies any recent nausea, vomiting or diarrhea. Reports has good appetite. No recent overnight events. [facility] Medical History Acute exacerbation of CHF (congestive heart failure) Acute on chronic diastolic (congestive) heart failure Acute respiratory failure with hypoxia Anemia Atherosclerosis of coronary artery bypass graft without angina pectoris 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 Atrial fibrillation with [...] unit/mL injection solution 25 unit subcut BID EQFSRSCQ21/27/16 [History Last Taken 07/02/23] cholecalciferol (vitamin D3) [...] 76.7 H, Lymph % (Auto) 9.8 L, [place] % (Auto) 9.5, Eos % (Auto) 3.2, [...] Berry MD; Dr. Rios Downey, DO~ Signed [facility] Work Phone: 1(404) 272-934408-26-2023 Progress note Author Carire Bassettfaith [facility] July 23, 2023 10:57am Note Date/Time July 14, 2023 10 :34am [facility] Medical Records Department [address] [place] [address] Progress Note - Nephrology 07/14/23 1029 MR#: [id number] Acct: [id number] Name: JODIE CARDENAS Rep #:[id number] : 1940 83 From: Saumya SOSA PCP: Dr. Rios Downey, DO Status:ADM IN Location: [place] [address] Subjective Subjective Following for CKD Patient resting [...] by Carrie Bonner MD> CC: ~ Signed [facility] Work Phone: 1([phone]) 311-425008-26-2023 Progress note Author Carrie [facility] center[facility] July 23, 2023 10:56am Note Date/Time July 19, 2023 2: 40pm [facility] Medical Records Department [address] [place] [address] Progress Note - Nephrology 07/19/23 1437 MR#: [id number] Acct: [id number] Name: JODIE CARDENAS Rep #:[id number] : 1940 83 From: Saumya SOSA PCP: Dr. Rios Downey, DO Status:ADM IN Location: [facility] TCU[facility]-1 Subjective Subjective No overnight events. Sitting in [...] (if applicable): 07/23/23 1056 <Electronically signed by Carrei Bonner MD> CC: ~ Signed [facility] Work Phone: 1([phone]) 200-386208-23-2023 Procedure [facility] 07-20-2023 History and physical note Author Jeremy Magallanes [facility] July 20, 2023 7:53am Note Date/Time July 03, 2023 8:3 0pm [facility] Medical Records Department [address] [place] [address] History & Physical Exam 07/03/232021 MR#: [id number] Acct: [id number] Name: JODIE CARDENAS Rep #:[id number] : 1940 83 From: Jeremy Magallanes MD PCP: Dr. Rios Downey, DO Status:ADM IN Location: [place] [address] HPI - General General Date of Admission: 07/03/23 Date of Service: 07/04/23 Chief Complaint: Here for rehabilitation. HPI Narrative 06/29/2023 JODIE CARDENAS, is a 83 Male who presents to [facility] Emergency Department with stroke alert. 06/29/2023 EKG atrial fibrillation with slow ventricular response, left bundle branch block. Sometimes forgetful sleeping in chair, confused. Acting out of character, intermittent confusion, slurring words. Expressive aphasia, dysarthria, confusion. Symptoms improving, NIH 1, not TPA candidate. 06/29/2023 Admit to [facility]. PT/OT/ST, aspirin, atorvastatin for rule [...] strengthening, prior to discharge home with granddaughter. [facility] Medical History Acute exacerbation of CHF (congestive heart failure) Acute on chronic diastolic (congestive) heart failure Acute respiratory failure with hypoxia Anemia Atherosclerosis of coronary artery bypass graft without angina pectoris 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 Atrial fibrillation with [...] unit/mL injection solution 25 unit subcut BID [id number]/27/16 [History Last Taken 07/02/23] cholecalciferol (vitamin D3) [...] 25mg daily, Zyprexa 2.5mg qhs, stable chronic continuous churn buttermaker use, GDR not recommended. * Hypokalemia - [...] DO; Dr. Jeremy Magallanes MD ~* Signed [facility] Work Phone: 1(720) 739-587708-08-2023 Progress note Author Jeremy Elpidio [facility] July 05, 2023 11:19am Note Date/Time July 05, 2023 11: 03am [facility] Medical Records Department [address] [place] [address] Progress Note - Pharmacy 07/05/23 1048 MR#: [id number] Acct: [id number] Name: JODIE CARDENAS Rep #:[id number] : 1940 83 From: Ingrid Rizvi PCP: [...] Dose Route Start Last Admin Trade Name Romain PRN Reason Stop Dose Admin Acetaminophen 1,000 mg 07/03/23 20:38 07/04/23 19:48 Acetaminophen 500 Mg Tablet PO 1,000 mg Q6H PRN PRN Administration Pain Score 1-10 Allopurinol 150 mg 07/04/23 08:00 07/05/23 08:02 Allopurinol 300 Mg Tablet PO 150 mg DAILYCM AYLIN Administration Apixaban 2.5 mg 07/03/23 18:00 07/05/23 05:04 Apixaban 2.5 Mg Tablet ([facility]) PO 2.5 mg BID AYLIN Administration [...] by Jeremy Magallanes MD> CC: ~ Signed [facility] Work Phone: 1(267) 521-737008-06-2023 Discharge summary Author [facility] July 03, 2023 11:01am Note Date/Time July 03, 2023 10: 51am [facility] Medical Records Department [address] [place] [address] Transfer to [facility] MR#: [id number] Acct: [id number] Name: JODIE CARDENAS Rep #:[id number] : 1940 83 From: Woody Brunson DO PCP: Dr. Rios Downey, Status:ADM IN Certification of patient admission REQUIRED AT TIME OF ADMISSION. I CERTIFY THAT POST-HOSPITAL F SERVICES ARE REQUIRED TO BE GIVEN ON AN IN-PATIENT BASIS BECAUSE OF THE ABOVE NAMED PATIENT'S NEED FOR INTERMEDIATE CARE ON A CONTINUING BASIS FOR THE CONDITION(S) FOR WHICH HE/SHE WAS RECEIVING IN-PATIENT HOSPITAL SERVICES PRIOR TO HIS/HER TRANSFER [facility]. 07/03/23 1101<Electronically signed by Woody Brunson [...] Continue diet as ordered - consistency per STAVE LOG RIPSAW OPERATOR Will order 4 oz glucerna shake tid w/ medpass d/t poor po intake since in hospital Continue to monitor for changes in pt nutritional status and make additional rec as indicated Speech Linguistic Eval Summary: Patient laying in bed, difficult to arouse. Required constant verbal and tactile cueing to participate in conversation w/ STAVE LOG RIPSAW OPERATOR. Frequently closing eyes, lethargic. Granddaughter present for cognitive-linguistic evaluation. Granddaughter reports patient does have some cognitive impairment as baseline, he does not typically know their address, [place], etc. Granddaughter attributes this to age related decline however, STAVE LOG RIPSAW OPERATOR suspects dementia at baseline. Granddaughter does live w/ patient. Orientation - Oriented to name, month and date of birthday only. Disoriented to year of , current month, current year and place despite choice array of 2. Patient reporting it is Jul 1964 and he is at [facility]. Unable to recall any personal details. Verbal expression - Very difficult to understand, slurred speech (50% intelligible w/ unknown context). Granddaughter reports worsening dysarthria compared to baseline. Patient does have upper/lower dentures that he sometimes uses when he eats. Auditory comprehension - Difficult to understand task, unable to determine if d/t lethargy or exacerbation of cognitive impairment. STAVE LOG RIPSAW OPERATOR discontinued cognitive-linguistic assessment d/t lethargy, will continue [...] in before D/C Order can be placed): [facility] 07/03/23 1101 <Electronically signed by Woody Brunson DO> Cosigner Signature (if applicable): CC: Dr. Rigoberto Ashley MD; Dr. Rios Downey DO ~ [facility] Work Phone: 1(384) 658-140808-05-2023 Progress note Author [facility] July 02, 2023 9:59am Note Date/Time July 02, 2023 9:5 6am [facility] Medical Records Department [address] [place] [address] Progress Note - Hospitalist 07/02/23 0954 MR#: [id number] Acct: [id number] Name: JODIE CARDENAS Rep #:[id number] : 1940 83 From: Woody Brunson DO PCP: Dr. Rios Downey DO Status:ADM IN Location: [place] [address] Reason for Visit Reason for Visit: Diagnoses [...] he will need short-term placement in the [facility] facility for rehab services. #2 type 2 [...] 35 minutes Charges/Coding Visit Charges Inpatient E&M: 07568 Subs Hosp L2 07/02/23 0959 <Electronically signed by Woody Brunson DO> Cosigner Signature (if applicable): CC: ~ Signed [facility] Work Phone: 1(197) 647-188608-04-2023 Progress note Author [facility] July 01, 2023 5:13pm Note Date/Time July 01, 2023 4:5 8pm [facility] Medical Records Department [address] [place] [address] Progress Note - Hospitalist 07/01/23 1655 MR#: [id number] Acct: [id number] Name: JODIE CARDENAS Rep #:[id number] : 1940 83 From: Woody Brunson DO PCP: Dr. Rios Downey, Status:ADM IN Location: [place] [id number] Reason for Visit Reason for Visit: [...] Total 120 / 120 1190 / 1190 1955.67 / Output Total 100 / 100 0 / 0 Balance 20 / 1190 / 1190 1955. / Lab / Micro Data 07/01/23 05:14 [...] 76.6 H, Lymph % (Auto) 14.4 L, Panola % (Auto) 7.7, Eos % (Auto) 0.6, [...] most likely need temporary placement in a [facility] facility. #2 type 2 diabetes-blood sugar will [...] 35 minutes Charges/Coding Visit Charges Inpatient E&M: 04820 Subs Hosp L2 07/01/23 1713 <Electronically signed by Woody Brunson DO> Cosigner Signature (if applicable): CC: ~ Signed [facility] Work Phone: 1(167) 121-946108-03-2023 Progress note Author [facility] June 30, 2023 7:55pm Note Date/Time June 30, 2023 6:4 1pm [facility] Medical Records Department [address] [facility] [place] [address] Progress Note - Hospitalist 06/30/23 1834 MR#: [id number] Acct: [id number] Name: JODIE CARDENAS Rep #:[id number] : 1940 83 From: Woody Brunson DO PCP: Dr. Rios Downey, Status:ADM IN Location: [address] 1 Reason for Visit Reason for [...] 72.4 H, Lymph % (Auto) 18.2 L, Panola % (Auto) 7.1, Eos % (Auto) 1.3, [...] L, BUN/Creatinine Ratio 19.3, Glucose 121 H, OmobnxhyvaC6m 5.6, Calcium 9.4, Triglycerides 98, Cholesterol 75, [...] 35 minutes Charges/Coding Visit Charges Inpatient E&M: 31382 Subs Hosp L2 06/30/231954 <Electronically signed by Woody Brunson DO> Cosigner Signature (if applicable): CC: ~ Signed [facility] Work Phone: 1(797) 352-311208-02-2023 Discharge summary Author Angélica Palomo [facility] June 29, 2023 3:48pm Note Date/Time June 29, 2023 2:3 2pm [facility] Medical Records Department [address] [place] [address] Emergency Department Summary 06/29/23 MR#: [id number] Acct: [id number] Name: JODIE CARDENAS Rep #:[id number] : 1940 83 From: Angélica Encinas PCP: Dr. Rios Downey, DO Status:ADM GUZMAN Location: [place] [address] HPI History of Present Illness Chief Complaint: [...] Stroke alert was called in the field. [facility] Medical History Acute exacerbation of CHF (congestive heart failure) Acute on chronic diastolic (congestive) heart failure Acute respiratory failure with hypoxia Anemia Atherosclerosis of coronary artery bypass graft without angina pectoris 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 Atrial fibrillation with [...] unit/mL injection solution 25 unit subcut BID [id number]/27/16 [History Last Taken 01/29/20] cholecalciferol (vitamin D3) [...] % (Auto) 70.0 Lymph % (Auto) 21.1 Panola % (Auto) 6.4 Eos % (Auto) 1.4 [...] 11/06/2020, patient does not have any significant change management Discussion w/another healthcare provider: Hospitalist and Business Continuity Global Director Discharge Plan Dx/Rx/DC Orders Clinical Impression: Essential (primary) hypertension, TIA (transient ischemic attack), Paroxysmal atrial fibrillation Disposition Disposition: Acute Care Hospital [facility] Discharge Date/Time: 06/29/23 14:54 What to do if you have Problems For any increased pain, shortness of breath, bleeding, nausea or vomiting, chest pain, or any unexpected problems, contact your Primary Care Provider. Call [facility] ([phone]) or report to the closest Emergency Room. Call 911 if necessary. 06/29/23 1548 <Electronically signed by Angélica Palomo DO> Cosigner Signature (if applicable): CC: Dr. Rios Downey, DO ~ Signed [facility] Work Phone: 1(185) 503-615108-02-2023 History and physical note Author Rigoberto Ashley [facility] June 29, 2023 3:09pm Note Date/Time June 29, 2023 2:2 7pm [facility] Medical Records Department [address] [facility] [place] [address] H&P Exam - Hospitalist 06/29/23 1424 MR#: [id number] Acct: [id number] Name: JODIE CARDENAS Rep #:[id number] : 1940 83 From: Rigoberto Bustos PCP: Dr. Rios Downey, Status:ADM GUZMAN [facility] HPI - General General Date of [...] and oxygen and BiPAP and chronic A-fib [facility] Medical History Acute exacerbation of CHF (congestive heart failure) Acute on chronic diastolic (congestive) heart failure Acute respiratory failure with hypoxia Anemia Atherosclerosis of coronary artery bypass graft without angina pectoris 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 Atrial fibrillation with [...] unit/mL injection solution 25 unit subcut BID [id number]/27/16 [History Last Taken 01/29/20] cholecalciferol (vitamin D3) [...] % (Auto) 70.0, Lymph % (Auto) 21.1, Panola % (Auto) 6.4, Eos % (Auto) 1.4, [...] was started on oxygen and [facility] nephrology saw the patient. Patient [...] on Eliquis. Charges/Coding Visit Charges Inpatient E&M: 50884 Init Hosp L3 Procedures Hospitalists Procedures: 25467 Advncd Care Plan 30 Min 06/29/23 1509 <Electronically signed by Rigoberto Ashley MD> Cosigner Signature (if applicable): CC: Dr. Rigoberto Ashley MD; Dr. Rios Downey, DO~ Signed [facility] Work Phone: 1(375) 973-427406-17-2023 Note. MICRO - Microbiology PROCEDURE: Urine Culture [...] Locations *1: This test was performed at: , [address] [place] [address], [address]- , [facility] ([place])02-24-2016 Evaluation note* Diagnosis Onset Date Resolution Status 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 chronic Essential (primary) hypertension chronic H/O aortic valve replacement February 24, 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, 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 Hyperlipemia chronic Paroxysmal atrial fibrillation [facility] Work Phone: [phone]) 848-737203-29-2016 Evaluation note* Diagnosis Onset Date Resolution Status Obstructive sleep apnea 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 chronic Essential (primary) hypertension chronic H/O aortic valve replacement February 24, 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 Hyperlipemia chronic Paroxysmal atrial fibrillation [facility] Work Phone: 1(293) 248-311903-29-2016 Evaluation note* Diagnosis Onset Date Resolution Status 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 chronic Essential (primary) hypertension chronic H/O aortic valve replacement February 24, 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 Hyperlipemia chronic Paroxysmal atrial fibrillation [facility] Work Phone: Consult note Author Vladimir Bourgeois [facility] August 22, 2023 2:24pm Note Date/Time August 22, 2023 2:24pm [facility] Medical Records Department [address] [place] [address] Counseling Note - Pharmacy 08/22/23 1424 MR#: [id number] Acct: [id number] Name: JODIE CARDENAS Rep #:[id number] : 1940 83 From: Vladimir Bourgeois PCP: Dr. Rios Downey, DO Status:ADM IN Y Location: [place] [address] [place] Med Reconciliation Pharmacy Service has performed discharge [...] unit/mL injection solution 25 unit subcut BID [id number]/27/16 cholecalciferol (vitamin D3) 25 mcg (1,000 unit) [...] Laxative) 1 tab-cap PO BID 08/18/23 08/22/23 7708 <Electronically signed by Vladimir ferrera> Date _ Vladimir Coburn Signature (if applicable): Date CC: ~ Signed [facility] Work Phone: Discharge summary Author Eladio Lucas [facility] Note Date/Time July 10, 2025 1: 54pm [facility] Medical Records Department [address] [place] [address] [place] [address] Discharge Summary 07/10/25 1348 MR#: [id number] Acct: [id number] Name: JODIE CARDENAS Rep #:[id number] : 1940 85 From: Eladio ramirez MD PCP: Dr. Rios Downey DO Status:ADM IN Location: [place] [address] Providers Date of Admission: 07/06/25 Primary Care Physician: Dr. Rios Downey, DO Consultations 07/07/25 00:57 Consult: Onc/Wound/real estate instructor Routine Comment: 07/09/25 08:45 Consult: Quarrying Manager / Pulmonary Medicine Routine Consulting Provider: Intensivists/Pulmonary Med Reason for Consult: Severe pulm htn EMERGENT Consult: No MD Notified: Yes Date Notified: 07/09/25 Time Notified: 09:05 Method of Notification: Text Reason For Visit: CHF EXACERBATION Diagnosis Discharge Diagnosis (1) Acute exacerbation of CHF (congestive heart failure): Status: Chronic Code(s): I50.9 - Heart failure, unspecified Qualifiers: Heart failure type: combined systolic and diastolic Qualified Code(s): I50.43 - Acute on chronic combined systolic (congestive) and diastolic (congestive) heart failure Medications at Discharge Home Medications aspirin 81 mg tablet,delayed release 81 mg PO DAILY HEART HEALTH 07/11/16 multivitamin 1 ea PO DAILY HEALTH MAINTENANCE 07/11/16 insulin regular human 100 unit/mL injection solution 10 unit subcut BID [id number]/27/16 cholecalciferol (vitamin D3) 25 mcg (1,000 unit) [...] 2.5 mg PO BID BLOOD THINNER 10/07/22 menthol 0.44 %-zinc oxide 20.6 % topical ointment (Calmoseptine) 1 applic topical BID 08/18/23 nystatin 100,000 unit/gram topical powder (Nystop) 1 applic topical BID 08/18/23 nitroglycerin 0.4 mg sublingual tablet (Nitrostat) 0.4 mg sublingual Q5-15M PRN chest pain #25 tabs 03/23/24 amlodipine 2.5 mg tablet 2.5 mg PO DAILY #90 tabs 01/25/25 furosemide 40 mg tablet 40 mg PO QDAY #90 tabs 01/25/25 Held on 07/10/25. Instructions: Resume on 07/12/25. insulin NPH isoph U-100 human 100 unit/mL subcutaneous suspension 10 unit subcutBID DIABETES 05/31/25 levetiracetam 500 mg tablet 500 mg PO BID 05/31/25 calcitriol 0.5 mcg capsule 0.5 mcg PO MOWEFR 07/06/25 isosorbide mononitrate 60 mg tablet,extended release 24 hr 60 mg PO DAILY 07/06/25 metoprolol tartrate 25 mg tablet 12.5 mg (1/2 x 25 mg) PO BID #0 tabs 07/10/25 Hospital Course Operations None Procedures 2-D Echocardiogram Summary of Care Provided Minutes Spent on Discharge: 31 Hospital Course: Per HPI: JODIE CARDENAS, is a 85 M who presents with increased shortness of breath with exertion and increased lower extremity edema. This is an 85-year-old male with a history of HFrEF presents with the above symptoms. Legs are very swollenand tight. Does not check his weight daily so unclear he had put on any weight. About presented to the emergency room where he had an elevated BNP of 12,661, troponin of 104 chest x-ray was unremarkable but was also noted that his potassium was elevated at 6.3. He had received dextrose and insulin, calcium gluconate as well as Tylenol and furosemide. It was later determined that the potassium collected was actually hemolyzed. A repeat potassium has been orderedand is currently pending. Hospital Course: 1. Acute on chronic systolic CHF exacerbation in the setting of chronic hypoxicrespiratory failure with severe pulmonary hypertension/essential HTN/HLD/paroxysmal A-fib?85-year-old male presents to the hospital with increasing lower extremity edema and shortness of breath on exertion. He is notusing more than his baseline oxygen at 2-1/2 L at rest and 5 L with ambulation however he feels short of breath. He was placed on IV diuresis however his renal function became challenging and they tried to advance him to 3 times dailydosing of his Lasix however he could not tolerate that with his kidney function and blood pressure she was back down to twice a day dosing. Pulmonology was consulted however they did not have any recommendations to help with his severe pulmonary hypertension as they felt that his disease was so far advanced and that he had such little physiologic reserve that they had recommended hospice conversations. I did have a 20-minute conversation with both the patient and his daughter about advance care planning in terms of palliative care versus hospice care. [facility] and follow-up with their criminal justice social worker and see if there is any intervention or testing that could be done first. Kidney function is close to baseline, on the day of discharge is3.1 with a baseline of 2.5. I did elect to hold his oral Lasix for a day or 2 on discharge to allow for some recovery. I would continue to wrap his lower extremities. I discussed with him the plan for discharge to SNF today and they expressed understanding of the risks and benefits of going to the [facility] and would like to go today. He did have an echo on 07/08/2025 with a PASP of 70 mmHg and D-shaped septum in systole and diastole, the EF was on the lower range of normal. 2. Type 2 diabetes, CKD 4, seizure disorder, depression, anxiety, gout are all chronic medical conditions which complicate his care. His home medications werecontinued where appropriate Physical Exam Narrative General: Alert, [...] than 3 Seconds Skin: No rashes, No breakdown, lower extremities wrapped Musculoskeletal: No Tenderness to Palpation of Joints or Extremities Neurological: No focal neurological deficits, moves all extremities Psych/Mental Status: Flat Weight / BMI Weight Weight: 252 lb 13.923 oz Body Mass Index (BMI) 40.6 ABG / Lab / Microbiology Data 07/10/25 05:20 07/10/25 05:20 Laboratory: Laboratory Results - last 24 hr 07/09/25 12:51: POC Glucose 91 07/09/25 17:24: POC Glucose 97 07/09/25 22:17: POC Glucose 108 H 07/10/25 05:20: WBC 7.7, RBC 2.98 L, Hgb 9.7 L, Hct 30.1 L, MCV 101.0 H, MCH 32.6 H, MCHC 32.2, RDW Std Deviation 59.3 H, RDW Coeff of Yeny 16.8 H, Plt Count 113 L, MPV 11.3, Immature Gran % (Auto) 0.700, Neut % (Auto) 63.8, Lymph % (Auto) 21.9, Panola % (Auto) 8.9, Eos % (Auto) 4.2, Baso % (Auto) 0.5, Absolute Neuts (auto) 4.9, Absolute Lymphs (auto) 1.68, Nucleated RBC % 0.5, Sodium 139, Potassium 4.4, Chloride 108, Carbon Dioxide 14.5 L, Anion Gap 16 H, BUN 98 H, Creatinine 3.10 H, Estim Creat Clear Calc 21.12 L, Est GFR (MDRD) Non-Af 19 L, BUN/Creatinine Ratio 31.6 H, Glucose 87, Calcium 8.9 07/10/25 06:26: POC Glucose 83 07/10/25 11:03: POC Glucose 98 Microbiology: Microbiology 07/06/25 16:45 Mucosa - Nose SARS-CoV-2, Influenza & RSV (PCR) - Final D/C Instructions DC O2, CPAP, BIPAP Needs Home O2 Discharge instructions: No Meaningful Use Info Meaningful Use Meaningful Use Diagnoses (Choose all that apply): None applicable Discharge Plan Admission Admit Date/Time: 07/06/25 19:03 Attending Provider: Eladio Lucas Primary Care Provider: Rios Downey Consulting Providers: Mikey Macias; Woody Brunson; Jennifer Xiao; Calvin Starr; Yaakov Love; Josh Cline; James Morales; Duong Pabon; Karri Valentin; Radha Cowan; Casey Salmeron; Kevin Sepulveda; Gustavo Goodman; Kiana James; Michelle Peters; Tatum Hollins; Nnamdi Tracey; Wan Acevedo; Esvin Sevilla; Rj Johnson; Anne Harden; Margie Flowers; Nhan Encarnacion; Cristian Berger; Juan José Carrera Discharge Orders/Prescriptions Prescriptions: New metoprolol tartrate 25 mg Tablet 12.5 mg PO BID Qty: 0 0RF Continued famotidine 20 mg tablet 20 [...] 25 MG tablet 25 mg PO DAILY allopurinol 300 mg tablet 300 mg PO DAILY menthol-zinc oxide [Calmoseptine] 0.44-20.6 % ointment 1 applic topical BID nystatin [Nystop] 100,000 unit/gram powder 1 applic topical BID calcitriol 0.5 mcg capsule 0.5 mcg PO MOWEFR isosorbide mononitrate 60 mg tablet extended release 24 hr 60 mg PO DAILY levetiracetam 500 mg tablet 500 mg PO BID insulin NPH isoph U-100 human 100 unit/mL suspension 10 unit SC BID amlodipine 2.5 mg tablet 2.5 mg PO DAILY Qty: 90 3RF Held furosemide 40 mg tablet 40 mg PO QDAY Qty: 90 3RF Hold Instructions: Resume on 07/12/25. Discontinued potassium chloride 20 mEq tablet,ER particles/crystals 20 meq PO DAILY Referrals / Follow Up: Rios Downey DO [Primary Care Provider] - Disposition Disposition (needs filled in before D/C Order can be placed): [facility] Charges/Coding Multi Select Codes Visit Charges Visit Charges: 01621 Disch Hosp Hospitalists' Procedures Procedures: 23268 Advncd Care Plan 30 Min 07/10/25 1354 <Electronically signed by Eladio Lucas MD> Cosigner Signature (if applicable): CC: Dr. Eladio Lucas MD; Dr. Rios Downey DO~ Signed [facility] Work Phone: evaluation + Plan note Future Appointments Appointment Date:07/25/2024 04:00:00 PM Scheduled Provider:RIOS DOWNEY DO Location:[facility] Appointment Type:PC OV Future Scheduled [...] Level 06/08/22 * Complete Metabolic Panel 06/08/22 [facility] Evaluation noteNo assessment information available [facility] Work Phone: evaluation note* Diagnosis Onset Date Resolution Status Restrictive airway disease a cute Chronic renal failure, stage 3 (moderate) chronic Chronic respiratory failure with hypoxia chronic Obstructive sleep apnea [facility] Work Phone: Evaluation note* Diagnosis Onset Date Resolution Status Restrictive airway disease a cute Chronic renal failure, stage 3 (moderate) chronic Chronic respiratory failure with hypoxia chronic Obstructive sleep apnea [facility] 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 chronic Essential (primary) hypertension chronic H/O aortic valve replacement February 24, 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, 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 Hyperlipemia chronic Paroxysmal atrial fibrillation chronic [facility] Work Phone: Evaluation note* Diagnosis Onset Date Resolution Status Restrictive airway disease a cute Chronic respiratory failure with hypoxia chronic Obstructive sleep apnea [facility] Work Phone: Evaluation note* Diagnosis Onset Date Resolution Status Obstructive sleep apnea [facility] Work Phone: Evaluation note* Diagnosis Onset Date Resolution Status Encephalopathy acute TIA (transient ischemic attack) acute Essential (primary) hypertension chronic Paroxysmal atrial fibrillation chronic [facility] Work Phone: Evaluation note* Diagnosis [...] ml/min chronic Hypertension chronic Obstructive 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 apnea 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 Encephalopathy resolved [facility] Work Phone: Evaluation note* Diagnosis [...] ml/min chronic Hypertension chronic Obstructive sleep apnea 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 kibry Encephalopathy resolved Confusion acute Debility acute [facility] Work Phone: Evaluation note* Diagnosis [...] ml/min chronic Hypertension chronic Obstructive sleep apnea 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 Encephalopathy resolved Debility acute Acute exacerbation of CHF (congestive heart failure) chronic [facility] Work Phone: Evaluation note* Diagnosis [...] ml/min chronic Hypertension chronic Obstructive sleep apnea 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 Encephalopathy resolved Debility acute Aortic stenosis acute Debility acute Acute exacerbation of CHF (congestive heart failure) chronic Chronic respiratory failure chronic CKD (chronic kidney disease) stage 4, GFR 15-29 ml/min [facility] Work Phone: Evaluation note* Diagnosis Onset Date [...] ml/min chronic Hypertension chronic Obstructive sleep apnea 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 Encephalopathy resolved Debility acute Aortic stenosis acute Debility acute Acute exacerbation of CHF (congestive heart failure) chronic Chronic respiratory failure chronic CKD (chronic kidney disease) stage 4, 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 Chronic respiratory failure chronic Obstructive sleep apnea [facility] Work Phone: Evaluation note* Diagnosis Onset Date Resolution Status Aortic stenosis acute Atrial fibrillation acute Coronary artery disease acut e Debility acute Depression acute Diabetes mellitus acute Dysarthria acute Expressive aphasia acute GERD (gastroesophageal reflux disease) acute Seizure disorder acute Chronic respiratory failure chronic CKD (chronic kidney disease) stage 4, 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 Hypertension chronic Obstructive sleep apnea 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 Encephalopathy resolved Debility acute Aortic stenosis acute Debility acute Acute exacerbation of CHF (congestive heart failure) chronic Chronic respiratory failure chronic CKD (chronic kidney disease) stage 4, 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 Chronic respiratory failure chronic Obstructive sleep apnea [facility] Work Phone: Evaluation note* Diagnosis Onset Date Resolution Status Aortic stenosis acute Debility acute Acute exacerbation of CHF (congestive heart failure) chronic Chronic respiratory failure chronic CKD (chronic kidney disease) stage 4, 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 Chronic respiratory failure chronic Obstructive sleep apnea [facility] Work Phone: History and physical note Author Mikey Macias [facility] Note Date/Time July 06, 2025 7:2 9pm [facility] Medical Records Department [address] [place] [address] H&P Exam - Hospitalist 07/06/251912 MR#: [id number] Acct: [id number] Name: JODIE CARDENAS Rep #:[id number] : 1940 85 From: Mikey Macias DO PCP: Dr. Rios Downey DO Status:REG ER Location: ED HPI - General General Date of Service: 07/06/25 Chief Complaint: Shortness of breath HPI Narrative JODIE CARDENAS, is a 85 M who presents with increased shortness of breath with exertion and increased lower extremity edema. This is an 85-year-old male with a history of HFrEF presents with the above symptoms. Legs are very swollen and tight. Does not check his weight daily so unclear he had put on any weight. About presented to the emergency room where he had an elevated BNP of 12,661, troponin of 104 chest x-ray was unremarkable but was also noted that his potassium was elevated at 6.3. He had received dextrose and insulin, calcium gluconate as well as Tylenol and furosemide. It was later determined that the potassium collected was actually hemolyzed. A repeat potassium has been orderedand is currently pending. [facility] Medical History PAF (paroxysmal atrial fibrillation) AUTUMN treated with BiPAP Former smoker Chronic respiratory failure with hypoxia 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 Essential (primary) hypertension [...] BID BLOOD T HINNER 10/07/22 07/03/23 History menthol 0.44 %-zinc oxide 20.6 % 1 applic topical BID 08/18/23 08/18/23 History topical ointment (Calmoseptine) nystatin 100,000 unit/gram topical 1 applic topical BI D 08/18/23 08/18/23 History powder (Nystop) nitroglycerin 0.4 mg sublingual 0.4 mg sublingual Q5-1 5M PRN chest 03/23/24 Unknown Rx tablet (Nitrostat) pain #25 tabs amlodipine 2.5 mg tablet 2.5 mg PO DAILY #90 tabs Unknown Rx furosemide 40 mg tablet 40 mg PO QDAY #90 tabs 01/25 Unknown Rx insulin NPH isoph U-100 human 100 10 unit subcut BID D IABETES 05/31/25 Unknown History unit/mL subcutaneous suspension levetiracetam 500 mg tablet 500 mg PO BID 05/31/25 Unk nown History calcitriol 0.5 mcg capsule 0.5 mcg PO MOWEFR 07/06/25 Unknown History isosorbide mononitrate 60 mg 60 mg PO DAILY 07/06/25 U nknown History tablet,extended release 24 hr potassium chloride 20 mEq 20 meq PO DAILY 07/06/25 Unk nown History tablet,extended release(part/cryst) Allergy/AdvReac Type Severity Reaction Status Date / Time Penicillins (PCN) Allergy Swelling Verified 07/06/25 15:29 Family History Father Myocardial infarction Mother CVA (cerebral vascular accident) Brother CAD (coronary artery disease) Diabetes Surgical History Hx of cholecystectomy (01/13/17) H/O aortic valve replacement (02/24/16) H/O coronary artery bypass surgery (02/24/16) Social History household members: family and other details: Granddaughter. 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 Has been weak and has fallen which is suspected because of the bruising in his left upper extremity. No fever or chills. Sore throat. All review of systems were negative except as mentioned above in the history of present illness and the other review of systems. Vital Signs Vital Signs Vital Signs: 07/06/25 15:28 07/06/25 15:29 07/06/25 16:27 Temperature 36.8 C 36.8 C Temperature Source Oral Oral Pulse Rate 51 L 51 L 49 L Respiratory Rate 16 16 17 Respiratory Effort Respiratory Pattern Blood Pressure 120/68 120/68 134/68 H Blood Pressure Mean 85 85 90 Pulse Ox 100 100 100 Oxygen Delivery Method Nasal Cannula Nasal Cannula Room Air Oxygen Flow Rate (L/min) 5 5 07/06/25 16:36 07/06/25 16:39 07/06/25 16:42 Temperature Temperature Source Pulse Rate Respiratory Rate Respiratory Effort Short of Breath Respiratory Pattern Tachypnea Blood Pressure Blood Pressure Mean Pulse Ox 100 Oxygen Delivery Method Nasal Cannula Nasal Cannula Nasal Cannula Oxygen Flow Rate (L/min) 4 2.5 07/06/25 17:00 07/06/25 18:00 07/06/25 19:00 Temperature Temperature Source Pulse Rate 47 L 47 L 47 L Respiratory Rate 16 13 16 Respiratory Effort Respiratory Pattern Blood Pressure 129/66 H 115/74 135/64 H Blood Pressure Mean 87 88 85 Pulse Ox 100 98 100 Oxygen Delivery Method Oxygen Flow Rate (L/min) Weight Weight: 121.4 kg Body Mass Index (BMI) 44.5 Physical Exam Narrative Limited POCUS exam due to body habitus. Use curvilinear probe IVC was visualized and was dilated and noncollapsible with respirations. I could not get a good subxiphoid view of the heart. Using the linear probe, the lungs wereevaluated in the anterior and lateral hunter and no B-lines were noted. Const alert and no apparent distress Constitutional Narrative: Hard of hearing. No respiratory distress. No conversational dyspnea. HEENT normocephalic Eyes Eyes Narrative: No icterus. Slight proptosis. Neck Neck Narrative: Large neck girth Resp Resp Narrative: Coarse breath sounds bilaterally Cardio Cardio Narrative: Bradycardic. No murmurs gallops or rubs. GI GI Narrative: Obese but soft. Nontender nondistended. Extremity Extremity Narrative: Tight bilateral lower extremity edema with venous stasis changes to the distal lower extremities. Skin Skin Narrative: Venous stasis changes to the lower extremities. Bruising on left upper extremity. Neuro moves all extremities Sensorium / Orientation: awake and alert Psych affect normal Results Lab / Micro Data 07/06/25 16:18 07/06/25 16:18 Labs: Laboratory Results - last 24 hr 07/06/25 16:18: WBC 6.7, RBC 3.20 L, Hgb 10.4 L, Hct 32.4 L, MCV 101.3 H, MCH 32.5 H, MCHC 32.1, RDW Std Deviation 60.4 H, RDW Coeff of Yeny 16.7 H, Plt Count 117 L, MPV 11.7, Immature Gran % (Auto) 0.700, Neut % (Auto) 70.8 H, Lymph % (Auto) 16.9 L, [place] % (Auto) 9.3, Eos % (Auto) 1.9, Baso % (Auto) 0.4, Absolute Neuts (auto) 4.7, Absolute Lymphs (auto) 1.13, Nucleated RBC % 0.4, Sodium 137, Potassium 6.3 H*, Chloride 108, Carbon Dioxide 14.7 L, Anion Gap 15, BUN 76 H, Creatinine 3.01 H, Estim Creat Clear Calc 22.08 L, Est GFR (MDRD) Non-Af 20 L, BUN/Creatinine Ratio 25.3 H, Glucose 119 H, Calcium 9.4, Troponin T High Sens 104H*, [place] [id number] H 07/06/25 17:42: POC Glucose 91 Micro: Microbiology 07/06/25 16:45 Mucosa - Nose SARS-CoV-2, Influenza & RSV (PCR) - Final Imaging Radiology Impression Chest X-Ray 07/06/25 16:45 IMPRESSION: CARDIOMEGALY. NO ACUTE FINDINGS. Reading Location: [id number] Assessment & Plan Assessment/Plan (1) HFrEF (heart failure with reduced ejection fraction): PLAN: Acute on chronic Looking at his weight looks like he is put on nearly 15 kg since May though this may not be accurate given the bed scale. Patient received 20 mg of IV furosemide in emergency room and will give an additional 20 to give a total of 40 today and then will continue with 40 IV twice daily Additional plans Daily weights, fluid restrict 1.5 L/day, repeat echocardiogram. Echocardiogram from October 10, 2024 showed EF 40% with pulmonary systolic pressure of 43 mmHg. Not a candidate for DIONNA inhibitor/angiotensin receptor josey given CKD (2) Bradycardia: PLAN: Looks like A-fib with heart rate in the 40s to 50s. He is not on any chronotropic medications such as beta-blockers norNondihydropyridine calcium channel blockers such as diltiazem (he does take amlodipine but this is a dihydropyridine calcium channel josey) Though from Dr. Shook's note from 06/21/25 it mentions containing metoprolol for rate control but is not on his medication list during this hospitalization nor was it on the office list at that time Will monitor for now and if continues to be ongoing may need to consult cardiology. (3) Elevated troponin I level: PLAN: Doubt non-STEMI this is likely due to demand ischemia from CHF but also skewed upwards given his CKD. No additional workup unless he has change in his clinical status. (4) Hyperkalemia: PLAN: Sample was hemolyzed which I brought the attention of the emergency room physician. Patient did receive treatment though however with dextrose and insulin, calcium gluconate. Recheck and hopefully the subsequent sample is not hemolyzed. Will be holding the oral potassium for now. PLAN: Plan Possible mild cognitive impairment/dementia: Granddaughter, whom he lives with, mentioned that he gets confused at night occasionally and worse when he comes int hospital. Unclear if he does have MCI or dementia but can be referred to geriatrics as outpatient have a formal testing. Debility: Patient has had some falls and some concerns for falls (bruising on left upper extremity). PT OT evaluate and treat. Case management to assist with disposition case heart level needs are necessary upon discharge. Chronic medical conditions * Diabetes mellitus type 2: Insulin-dependent. Patient takes NPH. Will change it over to glargine twice daily & scale insulin. Check an A1c. * Seizure disorder: Continue levetiracetam. * Hypertension: I am holding off on the patient's amlodipine due to the lower extremity edema. * Mood disorder: Continue olanzapine, sertraline. 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 * A-fib: Not on any chronotropic medications that I can see from his list. Continue with apixaban. * CAD: Status post CABG. Continue with aspirin VTE prophylaxis: Low risk as patient is already anticoagulated. CODE STATUS: Addressed with the patient and his daughter and verified that his previous CODE STATUS of DNR Comfort Care arrest no intubation is still in place which they confirmed he is. Charges/Coding Visit Charges Inpatient E&M: 59113 Init Hosp 07/06/251928 <Electronically signed by Mikey Macias DO> Cosigner Signature (if applicable): CC: Dr. Mikey Macias, ; Dr. Rios Downey DO~ Signed [facility] Work Phone: Hospital course Narrative No data available for this section [facility] Hospital Discharge instructions No data available for this section [facility] Hospital Discharge instructions Additional Instructions Continue [...] tizanidine for this. I do recommend using [id number] Lidoderm patches as well to the area of maximum pain in your lower back. Return to the ER if you have a progression or worsening of your symptoms or further concerns.[facility] Work Phone: Progress note No data available for this section [facility] Reason for referral (narrative)No reason for referral information [facility] Work Phone: Chief Complaint and Reason for Visit Chief Complaint 6 M FU RETACRIT RETACRIT RETACRIT RETACRIT Reason for Visit Atherosclerosis of c oronary 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 Essential (primary) hypertension [...] sleep apnea 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 Essential (primary) hypertension H/O aortic valve replacement H/O coronary artery bypass surgery Hyperlipemia Paroxysmal atrial fibrillation Chief Complaint 1 Y FU RETACRIT RETACRIT 6 M FU RETACRIT RETACRIT Reason for Visit Restrictive airway d isease Chronic renal failure, stage 3 (moderate) Chronic respiratory failure with hypoxia Obstructive sleep apnea 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 Essential (primary) hypertension H/O aortic valve replacement H/O coronary artery bypass surgery Hyperlipemia Paroxysmal atrial fibrillation Chief Complaint RETACRIT RETACRIT 6 M FU RETACRIT RETACRIT Reason for Visit Atherosclerosis of c oronary 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 Essential (primary) hypertension H/O aortic valve replacement H/O coronary artery bypass surgery Hyperlipemia Paroxysmal atrial fibrillation Chief Complaint RETACRIT RETACRIT 6 M FU RETACRIT RETACRIT RETACRIT Reason for Visit Atherosclerosis of c oronary 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 Essential (primary) hypertension H/O aortic valve replacement H/O coronary artery bypass surgery Hyperlipemia Paroxysmal atrial fibrillation Chief Complaint RETACRIT 6 M FU RETACRIT RETACRIT RETACRIT RETACRIT Reason for Visit Atherosclerosis of c oronary 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 Essential (primary) hypertension [...] ap kalen 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 Essential (primary) hypertension H/O aortic valve replacement Hyperlipemia Paroxysmal atrial fibrillation Chief Complaint RETACRIT RETACRIT RETACRIT retacrit 1 Y FU retacrit Reason for Visit Atherosclerosis of c oronary 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 Essential (primary) hypertension H/O aortic valve replacement Hyperlipemia Paroxysmal atrial fibrillation Chief Complaint RETACRIT RETACRIT retacrit 1 Y FU retacrit retacrit Reason for Visit Atherosclerosis of c oronary 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 Essential (primary) hypertension H/O aortic valve replacement Hyperlipemia Paroxysmal atrial fibrillation Chief Complaint retacrit 1 Y FU retacrit retacrit retacrit retacrit Reason for Visit Atherosclerosis of c oronary 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 Essential (primary) hypertension [...] Visit Atherosclerosis of c oronary 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 Essential (primary) hypertension [...] M FU June 20, 2025 3:05 pm Chief Complaint Admit Date CPAP motor life exceeded March 14 2:55pm lab draw March 28, 2025 2:42pm lab draw April 25, 2025 2:54p m lab draw May 22, 2025 2:56 pm ALT MENTAL STATUS May 31, 2025 9:57p m 3 M FU June 13, 2025 3:00 pm lab draw June 19, 2025 2:56 pm 9 M FU June 20, 2025 3:05 pm CHF EXACERBATION July 06, 2025 7:0 3pm Shortness of breath July 06, 2025 7:1 3pm Reason for Visit Admit Date 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) March 14, 2025 2:55pm Chronic respiratory failure March 14, 2025 2:55pm Obstructive sleep apnea March 14, 2025 2:55pm 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) June 13, 2025 3:00pm Chronic respiratory failure June 13, 2 025 3:00pm Obstructive sleep apnea June 13, 2025 3:00pm 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 June 20, 2025 3:05pm Essential (primary) hypertension June 202024 3:05pm H/O aortic valve replacement June 20, 2025 3:05pm Hyperlipemia June 20, 2025 3:05 pm Paroxysmal atrial fibrillation May 3:05pm Elevated troponin I level July 06 7:03pm HFrEF (heart failure with reduced ejecti on fraction) July 06, 2025 7:03pm Hyperkalemia July 06, 2025 7:0 3pm Bradycardia July 06, 2025 7:0 3pm Chief Complaint Admit Date CPAP motor life exceeded March 14 2:55pm lab draw March 28, 2025 2:42pm lab draw April 25, 2025 2:54p m lab draw May 22, 2025 2:56 pm ALT MENTAL STATUS May 31, 2025 9:57p m 3 M FU June 13, 2025 3:00 pm lab draw June 19, 2025 2:56 pm 9 M FU June 20, 2025 3:05 pm CHF EXACERBATION July 06, 2025 7:0 3pm Shortness of breath July 06, 2025 7:1 3pm CHF EXACERBATION July 07, 2025 4: 47pm CHF EXACERBATION July 08, 2025 1: 08pm CHF EXACERBATION July 09, 2025 9: 45am CHF EXACERBATION July 10, 2025 10 :37am Reason for Visit Admit Date 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) March 14, 2025 2:55pm Chronic respiratory failure March 14, 2025 2:55pm Obstructive sleep apnea March 14, 2025 2:55pm 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) June 13, 2025 3:00pm Chronic respiratory failure June 13, 2 025 3:00pm Obstructive sleep apnea June 13, 2025 3:00pm 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 June 20, 2025 3:05pm Essential (primary) hypertension June 202024 3:05pm H/O aortic valve replacement June 20, 2025 3:05pm Hyperlipemia June 20, 2025 3:05 pm Paroxysmal atrial fibrillation May 3:05pm Elevated troponin I level July 06 7:03pm HFrEF (heart failure with reduced ejecti on fraction) July 06, 2025 7:03pm Hyperkalemia July 06, 2025 7:0 3pm Acute exacerbation of CHF (congestive he art failure) July 06, 2025 7:03pm Bradycardia July 06, 2025 7:0 3pm Family History No Family History Records Found Relationship Condition Age at Onset Recorded Date/T gautam father Myocardial infarction Unknown mother Cerebrovascular accident (CVA) Unknown brother Coronary artery disease Unknown Diabetes mellitus Unknown Advance Directives No Advanced Directives Records Found Advance Directive Response Recorded Date/ Time Advance Directives No September 12:41pm Living Will No January 31, 2021 1:32pm Power of Wheel Shop Supervisor No January 31 1:32pm Advance Directive Response Recorded Date/ Time Advance Directives No September 11:41am Living Will No January 31, 2021 12:32pm Power of Wheel Shop Supervisor No January 31 12:32pm Advance Directive Response Recorded Date/ Time Advance Directives No September 12:41pm Living Will No June 29, 2023 12:48pm Power of Wheel Shop Supervisor No June 29 12:48pm Advance Directive Response Recorded Date/ Time Advance Directives No September 12:41pm Living Will No June 29, 2023 3:15pm Power of Wheel Shop Supervisor No June 29 3:15pm Advance Directive Response Recorded Date/ Time Advance Directives No September 12:41pm Living Will No July 04, 2023 11:19am Power of Wheel Shop Supervisor No July 04 11:19am Advance Directive Response Recorded Date/ Time Name of Medical Power of Wheel Shop Supervisor GRAND DAUGHTER August 18, 2023 11:51am Advance Directives No September 12:41pm Living Will Yes August 18, 2023 11:51am Power of Wheel Shop Supervisor Yes July 11:51am Advance Directive Response Recorded Date/ Time Name of Medical Power of Wheel Shop Supervisor GRAND DAUGHTER August 18, 2023 5:51pm Advance Directives No September 12:41pm Living Will Yes August 18, 2023 5:51pm Power of Wheel Shop Supervisor Yes July 5:51pm Advance Directive Response Recorded Date/ Time Name of Medical Power of Wheel Shop Supervisor ALBINODAUGHTER August 31, 2023 4:30pm Name of Medical Power of Wheel Shop Supervisor MARIA LUISA ALARCON- DAUGHTER September 16, 2023 4:13pm Advance Directives No September 12:41pm Living Will Yes September 16 4:13pm Power of Wheel Shop Supervisor Yes September 16, 2023 4:13pm Name of Medical Power of Wheel Shop Supervisor GRAND DAUGHTER August 18, 2023 5:51pm Advance Directive Response Recorded Date/ Time Name of Medical Power of Wheel Shop Supervisor MARIA LUISA-DAUGHTER August 31, 2023 4:30pm Name of Medical Power of Wheel Shop Supervisor MARIA LUISA ALARCON- DAUGHTER September 16, 2023 8:46pm Advance Directives No September 12:41pm Living Will Yes September 16 8:46pm Power of Wheel Shop Supervisor Yes September 16, 2023 8:46pm Name of Medical Power of Wheel Shop Supervisor GRAND DAUGHTER August 18, 2023 5:51pm Advance Directive Response Recorded Date/ Time Name of Medical Power of Wheel Shop Supervisor GLEN August 31, 2023 3:30pm Name of Medical Power of Wheel Shop Supervisor MARIA LUISA GUTIERREZ September 16, 2023 7:46pm Advance Directives No September 11:41am Living Will Yes September 16 7:46pm Power of Wheel Shop Supervisor Yes September 16, 2023 7:46pm Name of Medical Power of Wheel Shop Supervisor GRAND DAUGHTER August 18, 2023 4:51pm Advance Directive Response Recorded Date/ Time Name of Medical Power of Wheel Shop Supervisor MARIA LUISA ALARCON- TRISHAUGHTER September 16, 2023 7:46pm Advance Directives No September 11:41am Living Will Yes September 16 7:46pm Power of Wheel Shop Supervisor Yes September 16, 2023 7:46pm Advance Directive Response Recorded Date/ Time Advance Directives No September 12:41pm Living Will Yes September 16 8:46pm Power of Wheel Shop Supervisor Yes September 16, 2023 8:46pm Advance Directive Response Recorded Date/ Time Name of Medical Power of Wheel Shop Supervisor maria luisa alarcon February 15, 2024 11:56pm Advance Directives No September 12:41pm Living Will Yes February 15, 2024 11:56pm Power of Wheel Shop Supervisor Yes February 14 11:56pm Advance Directive Response Recorded Date/ Time Name of Medical Power of Wheel Shop Supervisor DAUGHTER MATILDA Malin February 19, 2024 12:00pm Advance Directives No September 12:41pm Living Will Yes February 19, 2024 12:00pm Power of Wheel Shop Supervisor Yes February 18 12:00pm Name of Medical Power of Wheel Shop Supervisor maria luisa alarcon February 15, 2024 11:56pm Advance Directive Response Recorded Date/ Time Living Will Yes February 19, 2024 12:00pm Do you have a Healthcare Power of Wheel Shop Supervisor? Yes February 19, 2024 12:00pm Advance Directives No September 12:41pm Advance Directive Response Recorded Date/ Time Advance Directives No September 12:41pm Advance Directive Response Recorded Date/ Time Do you have a Healthcare Power of Wheel Shop Supervisor? Yes May 31, 2025 10:22pm Name of Medical Power of Wheel Shop Supervisor Maria Luisa Jimy May 31, 2025 10:22pm Advance Directives No September 12:41pm Advance Directive Response Recorded Date/ Time Living Will Yes February 19, 2024 12:00pm Do you have a Healthcare Power of Wheel Shop Supervisor? Yes February 19, 2024 12:00pm Do you have a Healthcare Power of Wheel Shop Supervisor? Yes May 31, 2025 10:22pm Name of Medical Power of Wheel Shop Supervisor [facility] May 31, 2025 10:22pm Advance Directives No September 12:41pm Advance Directive Response Recorded Date/ Time Living Will Yes February 19, 2024 12:00pm Do you have a Healthcare Power of Wheel Shop Supervisor? Yes February 19, 2024 12:00pm Do you have a Healthcare Power of Wheel Shop Supervisor? Yes July 06, 2025 4:39pm Do you have a Healthcare Power of Wheel Shop Supervisor? Yes May 31, 2025 10:22pm Name of Medical Power of Wheel Shop Supervisor [facility] May 31, 2025 10:22pm Advance Directives No September 12:41pm Advance Directive Response Recorded Date/ Time Living Will Yes February 19, 2024 12:00pm Do you have a Healthcare Power of Wheel Shop Supervisor? Yes February 19, 2024 12:00pm Do you have a Healthcare Power of Wheel Shop Supervisor? Yes July 06, 2025 8:18pm Name of Medical Power of Wheel Shop Supervisor Maria Luisa Alarcon July 06, 2025 8:18pm Do you have a Healthcare Power of Wheel Shop Supervisor? Yes May 31, 2025 10:22pm Name of Medical Power of Wheel Shop Supervisor Maria Luisa Alarcon May 31, 2025 10:22pm [...] MD Referring Provider Active Dr. Josh Cline DO Attending Provider Active Dr. Rios Downey [...] Provider, Referrin g Provider Active Hector Sheldon BRIM PLATER, BRIM PLATER-C Attending Provider Active Team Status: Active Member [...] DO Primary Care Provider Active Dr. Farhan Bonsd DO Emergency Provider Active Team Status: Active [...] DO Primary Care Provider Active Dr. Farhan Cammie , DO Emergency Provider Active Dr. Patricia [...] Ashraf MD Other Provider Active Gosia Saenz BRIM PLATER, BRIM PLATER-C Other Provider Active Team Status: Active Member [...] Ashraf MD Other Provider Active Gosia Saenz BRIM PLATER, BRIM PLATER-C Other Provider Active Team Status: Inactive Member [...] Ashraf MD Other Provider Active Gosia Saenz BRIM PLATER, BRIM PLATER-C Other Provider Active Team Status: Inactive Member Role Status Dates Dr. Rios Downey , DO Primary Care Provider, Referrin g Provider Active Gosia Saenz BRIM PLATER, BRIM PLATER-C Attending Provider Active Team Status: Active Member [...] MD Other Provider Active Gosia Saenz NP, BRIM PLATER-C Other Provider Active Team Status: Inactive Member [...] 2025 End: March 14, 2025 Gosia Saenz BRIM PLATER, BRIM PLATER-C Attending Provider Active Start: March 14, 2025 [...] 2025 End: March 14, 2025 Gosia Saenz BRIM PLATER, BRIM PLATER-C Attending Provider Active Start: March 14, 2025 [...] 2025 End: June 13, 2025 Gosia Saenz BRIM PLATER, BRIM PLATER-C Attending Provider Active Start: June 13, 2025 [...] June 20, 2025 End: June 20, 2025 Team Status: Inactive Member Role/Relationship Status Dates Dr. Rios Downey DO Primary Care Provider Active Start: March 14, 2025 End: March 14, 2025 Dr. Rios Downey DO Referring Provider Active Start: March 14, 2025 End: March 14, 2025 Gosia Saenz BRIM PLATER, BRIM PLATER-C Attending Provider Active Start: March 14, 2025 [...] 2025 End: June 13, 2025 Gosia Saenz BRIM PLATER, BRIM PLATER-C Attending Provider Active Start: June 13, 2025 [...] June 20, 2025 End: June 20, 2025 Team Status: Active Member Role/Relationship Status Dates Dr. Rios Downey DO Primary Care Provider Active Start: July 06, 2025 Dr. Brittny Modi MD Emergency Provider Active S tart: July 06, 2025 Dr. Mikey Macias DO Admit Provider Active Star t: July 06, 2025 Dr. Mikey Macias DO Attending Provider Active Start: July 06, 2025 Team Status: Active Member Role/Relationship Status Dates Dr. Rios Downey DO Primary Care Provider Active Start: July 06, 2025 Dr. Brittny Modi MD Emergency Provider Active S tart: July 06, 2025 Dr. Mikey Macias DO Attending Provider Active Start: July 06, 2025 Team Status: Inactive Member Role/Relationship Status Dates Dr. Rios Downey DO Primary Care Provider Active Start: July 06, 2025 End: July 10, 2025 Dr. Brittny Modi MD Emergency Provider Active S tart: July 06, 2025 End: July 10, 2025 Dr. Mikey Macias DO Admit Provider Active Star t: July 06, 2025 End: July 10, 2025 Dr. Mikey Macias DO Other Provider Active Star t: July 06, 2025 End: July 10, 2025 Dr. Eladio Lucas MD Attending Provider Active Start: July 06, 2025 End: July 10, 2025 Dr. Woody Brunson DO Other Provider Active S tart: July 06, 2025 End: July 10, 2025 Dr. Jennifer Xiao MD Other Provider Active Start: July 06, 2025 End: July 10, 2025 Dr. Calvin Starr MD Other Provider Active Start: July 06, 2025 End: July 10, 2025 Dr. Yakaov Love MD Other Provider Active Star t: July 06, 2025 End: July 10, 2025 Dr. Josh Cline DO Other Provider Active Start : July 06, 2025 End: July 10, 2025 Dr. James Morales MD Other Provider Active Sta rt: July 06, 2025 End: July 10, 2025 Dr. Duong Pbaon MD Other Provider Active St art: July 06, 2025 End: July 10, 2025 Dr. Karri Valentin MD Other Provider Active S tart: July 06, 2025 End: July 10, 2025 Dr. Radha Cowan MD Other Provider Active Start: July 06, 2025 End: July 10, 2025 Dr. Casey Salmeron MD Other Provider Active Start : July 06, 2025 End: July 10, 2025 Dr. Kevin Sepulveda MD Other Provider Active Start: July 06, 2025 End: July 10, 2025 Dr. Gustavo Goodman MD Other Provider Active Start : July 06, 2025 End: July 10, 2025 Dr. Kiana James MD Other Provider Active Star t: July 06, 2025 End: July 10, 2025 Dr. Michelle Peters MD Other Provider Active Sta rt: July 06, 2025 End: July 10, 2025 Dr. Tatum Hollins MD Other Provider Active Sta rt: July 06, 2025 End: July 10, 2025 Dr. Nnamdi Tracey MD Other Provider Active Star t: July 06, 2025 End: July 10, 2025 Dr. Wan Acevedo MD Other Provider Active St art: July 06, 2025 End: July 10, 2025 Dr. Esvin Sevilla MD Other Provider Active Star t: July 06, 2025 End: July 10, 2025 Dr. Rj Johnson , Other Provider Active St art: July 06, 2025 End: July 10, 2025 Dr. Anne Harden MD Other Provider Active Start: July 06, 2025 End: July 10, 2025 Dr. Margie Flowers MD Other Provider Active St art: July 06, 2025 End: July 10, 2025 Dr. Nhan Encarnacion , Other Provider Active Start: July 06, 2025 End: July 10, 2025 Dr. Cristian Berger MD Other Provider Active Star t: July 06, 2025 End: July 10, 2025 Dr. Juan José Carrera MD Other Provider Active Sta rt: July 06, 2025 End: July 10, 2025 Team Status: Active Member Role/Relationship Status Dates Dr. Rios Downey DO Primary Care Provider Active Start: July 07, 2025 Dr. Brittny Modi MD Emergency Provider Active S tart: July 07, 2025 Dr. Mikey Macias DO Admit Provider Active Star t: July 07, 2025 Dr. Mikey Macias DO Other Provider Active Star t: July 07, 2025 Dr. Woody Brunson DO Attending Provider Active Start: July 07, 2025 Dr. Woody Brunson DO Other Provider Active S tart: July 07, 2025 Team Status: Active Member Role/Relationship Status Dates Dr. Rios Downey DO Primary Care Provider Active Start: July 08, 2025 Dr. Christian Shook MD Attending Provider Active S tart: July 08, 2025 Team Status: Active Member Role/Relationship Status Dates Dr. Rios Downey DO Primary Care Provider Active Start: July 08, 2025 Dr. Brittny Modi MD Emergency Provider Active S tart: July 08, 2025 Dr. Mikey Macias DO Admit Provider Active Star t: July 08, 2025 Dr. Mikey Macias DO Other Provider Active Star t: July 08, 2025 Dr. Eladio Lucas MD Attending Provider Active Start: July 08, 2025 Dr. Eladio Lucas MD Other Provider Active Start: July 08, 2025 Dr. Woody Brunson DO Other Provider Active S tart: July 08, 2025 Team Status: Active Member Role/Relationship Status Dates Dr. Rios Downey DO Primary Care Provider Active Start: July 09, 2025 Dr. Brittny Modi MD Emergency Provider Active S tart: July 09, 2025 Dr. Mikye Macias DO Admit Provider Active Star t: July 09, 2025 Dr. Mikey Macias DO Other Provider Active Star t: July 09, 2025 Dr. Eladio Lucas MD Attending Provider Active Start: July 09, 2025 Dr. Eladio Lucas MD Other Provider Active Start: July 09, 2025 Dr. Woody Brunson DO Other Provider Active S tart: July 09, 2025 Dr. Jennifer Xiao MD Other Provider Active Start: July 09, 2025 Dr. Calvin Starr MD Other Provider Active Start: July 09, 2025 Dr. Yaakov Love MD Other Provider Active Star t: July 09, 2025 Dr. Josh Cline DO Other Provider Active Start : July 09, 2025 Dr. James Morales MD Other Provider Active Sta rt: July 09, 2025 Dr. Duong Pabon MD Other Provider Active St art: July 09, 2025 Dr. Karri Valentin MD Other Provider Active S tart: July 09, 2025 Dr. Radha Cowan MD Other Provider Active Start: July 09, 2025 Dr. Casey Salmeron MD Other Provider Active Start : July 09, 2025 Dr. Kevin Sepulveda MD Other Provider Active Start: July 09, 2025 Dr. Gustavo Goodman MD Other Provider Active Start : July 09, 2025 Dr. Kiana James MD Other Provider Active Star t: July 09, 2025 Dr. Michelle Peters MD Other Provider Active Sta rt: July 09, 2025 Dr. Tatum Hollins MD Other Provider Active Sta rt: July 09, 2025 Dr. Nnamdi Tracey MD Other Provider Active Star t: July 09, 2025 Dr. Wan Acevedo MD Other Provider Active St art: July 09, 2025 Dr. Esvin Sevilla MD Other Provider Active Star t: July 09, 2025 Dr. Rj Johnson DO Other Provider Active St art: July 09, 2025 Dr. Anne Harden MD Other Provider Active Start: July 09, 2025 Dr. Margie Flowers MD Other Provider Active St art: July 09, 2025 Dr. Nhan Encarnacion DO Other Provider Active Start: July 09, 2025 Dr. Cristian Berger MD Other Provider Active Star t: July 09, 2025 Dr. Juan José Carrera MD Other Provider Active Sta rt: July 09, 2025 Team Status: Active Member Role/Relationship Status Dates Dr. Rios Downey , Primary Care Provider Active Start: July 10, 2025 Dr. Brittny Modi MD Emergency Provider Active S tart: July 10, 2025 Dr. Mikey Macias DO Admit Provider Active Star t: July 10, 2025 Dr. Mikey Macias DO Other Provider Active Star t: July 10, 2025 Dr. Eladio Lucas MD Attending Provider Active Start: July 10, 2025 Dr. Eladio Lucas MD Other Provider Active Start: July 10, 2025 Dr. Woody Brunson DO Other Provider Active S tart: July 10, 2025 Dr. Jennifer Xiao MD Other Provider Active Start: July 10, 2025 Dr. Calvin Starr MD Other Provider Active Start: July 10, 2025 Dr. Yaakov Love MD Other Provider Active Star t: July 10, 2025 Dr. Josh Cline DO Other Provider Active Start : July 10, 2025 Dr. James Morales MD Other Provider Active Sta rt: July 10, 2025 Dr. Duong Pabon MD Other Provider Active St art: July 10, 2025 Dr. Karri Valentin MD Other Provider Active S tart: July 10, 2025 Dr. Radha Cowan MD Other Provider Active Start: July 10, 2025 Dr. Casey Salmeron MD Other Provider Active Start : July 10, 2025 Dr. Kevin Sepulveda MD Other Provider Active Start: July 10, 2025 Dr. Gustavo Goodman MD Other Provider Active Start : July 10, 2025 Dr. Kiana James MD Other Provider Active Star t: July 10, 2025 Dr. Michelle Peters MD Other Provider Active Sta rt: July 10, 2025 Dr. Tatum Hollins MD Other Provider Active Sta rt: July 10, 2025 Dr. Nnamdi Tracey MD Other Provider Active Star t: July 10, 2025 Dr. Wan Acevedo MD Other Provider Active St art: July 10, 2025 Dr. Esvin Sevilla MD Other Provider Active Star t: July 10, 2025 Dr. Rj Johnson DO Other Provider Active St art: July 10, 2025 Dr. Anne Harden MD Other Provider Active Start: July 10, 2025 Dr. Margie Flowers MD Other Provider Active St art: July 10, 2025 Dr. Nhan Encarnacion DO Other Provider Active Start: July 10, 2025 Dr. Cristian Berger MD Other Provider Active Star t: July 10, 2025 Dr. Juan José Carrera MD Other Provider Active Sta rt: July 10, 2025 (unrecognized sect ion and content) No Status Records FoundNo Status Records Found INFORMATION SOURCE (unrecogn ized section and content) DATE CREATED AUTHOR 05/29/2023 [facility] ([place]) DATE CREATED AUTHOR AUTHOR'S JANAE ATCANDY 07/11/2025 [facility] FOR RECORDS PERTAINING TO PATIENTS WHO [...] BE BASED ON THE PRIMARY CLINICAL RECORDS. [employer] [facility]. provides no warranty or guarantee of the accuracy or completeness of information in this document.
[2025-07-13 17:10] LABS: AST(SGOT) 35 U/L (<=37); Alanine Aminotransfer ALT/SGPT 18 U/L (<=46); Albumin, Serum 3.7 g/dL (3.4-4.8); Alkaline Phosphatase 235 U/L (40-129); Anion Gap 17 (5-15); BUN 101 mg/dL (4-19); BUN/Creat Ratio 30.8 RATIO (10-20); Calcium,Total 9.2 mg/dL (7.6-11.0); Carbon Dioxide 17.5 mmol/L (21.0-32.0); Chloride 107 mmol/L (98-108); Estimated Creatinine Clearance 20.84 ml/min (50-250); Globulin 3.6 g/dL (2.2-4.2); Glucose 154 mg/dL (70-99); Potassium 4.8 mmol/L (3.3-5.1)
--- NOTE | 2025-07-13 17:43 | RAD_ITS ---
PROCEDURE: CHEST PA AND LATERAL 07/13/2025 REASON FOR EXAM: SOB TECHNIQUE: CHEST PA AND LATERAL COMPARISON: 07/06/2025 FINDINGS: No definite focal consolidation, pneumothorax, or appreciable pleural effusion. Prominent cardiomegaly. Aortic arch calcification. Central vascular congestion. Aortic valve prosthesis. Evidence of prior CABG with sternotomy wires and multiple mediastinal surgical clips. Moderate-advanced degenerative changes of the spine and bilateral shoulders. RAD/Chest PA and Lateral IMPRESSION: Prominent cardiomegaly with aortic valve prosthesis and evidence of CABG. No appreciable airspace consolidation or pleural effusion. Reading Location: [id number]
--- NOTE | 2025-07-13 19:50 | CT_ITS ---
PROCEDURE: BRAIN/HEAD WITHOUT CONTRAST 07/13/2025 REASON FOR EXAM: AMS TECHNIQUE: BRAIN/HEAD WITHOUT CONTRAST Coronal and Sagittal reconstruction series were provided. One or more dose reduction techniques were used (e.g., Automated exposure control, adjustment of the mA and/or kV according to patient size, use of iterative reconstruction technique. RADIATION DOSE SUMMARY: CTDlvol: 47 mGy DLP: 890 mGycm COMPARISON: 02/19/2024 FINDINGS: There is a mild degree of cerebral atrophy. There is no intracranial mass or hemorrhage. There is no edema or hydrocephalus. The paranasal sinuses are clear in the bony calvarium appears intact. CT/Brain/Head without Contrast IMPRESSION: No acute abnormality Reading Location: [id number]
== END 2025-07-13 22:23 | disposition skilled nursing facility (03) ==
PROVIDERS: Emergency Provider Emergency Medicine; Visit Provider Emergency Medicine
DX: J96.11 Chronic respiratory failure with hypoxia (principal); I13.0 Hypertensive heart and chronic kidney disease with heart failure and stage 1 through stage 4 chronic kidney disease, or unspecified chronic kidney disease; I50.42 Chronic combined systolic (congestive) and diastolic (congestive) heart failure; I48.0 Paroxysmal atrial fibrillation; E66.01 Morbid (severe) obesity due to excess calories; Z68.41 Body mass index [BMI] 40.0-44.9, adult; E11.22 Type 2 diabetes mellitus with diabetic chronic kidney disease; Z79.4 Long term (current) use of insulin; N18.30 Chronic kidney disease, stage 3 unspecified; I25.10 Atherosclerotic heart disease of native coronary artery without angina pectoris; G47.33 Obstructive sleep apnea (adult) (pediatric); Z95.1 Presence of aortocoronary bypass graft; Z95.2 Presence of prosthetic heart valve; Z79.01 Long term (current) use of anticoagulants; Z79.82 Long term (current) use of aspirin; Z79.899 Other long term (current) drug therapy; Z86.73 Personal history of transient ischemic attack (TIA), and cerebral infarction without residual deficits; Z87.891 Personal history of nicotine dependence
CPT/HCPCS: 70450; 71046; 80053; 82803; 85025; 93005; 94640; 99285; A4216